=== PATIENT | female | born 1945 | race Caucasian/White ===

== ENCOUNTER 2016-09-20 18:01 | Inpatient (IN) | payer MEDICARE, BC, OTHER ==
[2016-09-20] VITALS (18 sets, daily range): BP systolic 87–157; BP diastolic 29–107; PULSE 59–111; RESP 12–20; Ht 167.6 cm; Wt 100.0 kg
[~2016-09-20] VITALS: Ht 167.6 cm; Wt 100.0 kg
[~2016-09-20 18:01] MED LIST: ATOR10TA23 PO; ATROPINE 1 MG/10 ML SYRINGE ONE; EPINEPHrine 0.1 MG/ML SYG ONE; ETOMIDATE 20 MG INJ ONE; GLIP-95 PO; LISI5TAB PO; MTF1000T PO; NPH,100V10 SC; RALO60TA12 PO; ROCURONIUM 50 MG INJ ONE; SITA100T8 PO
[2016-09-20] MEDS ORDERED: ASPIRIN 300 MG SUPP PR STA (18:07)
[2016-09-20] MEDS ORDERED: CEFEPIME 2GM/50 ML (PMX) 50 ML IVPB STA (18:14)
[2016-09-20 18:16] LABS: ADD SCAN DIFF NO
[2016-09-20 18:19] LABS: ABNORMAL IP MESSAGE 1; HEMATOCRIT 42.8 % (37.0-47.0); HEMOGLOBIN 12.7 g/dl (12.0-16.0); MEAN CORPUSCULAR HEMOGLOBIN 26.8 pg (29.0-33.0); MEAN CORPUSCULAR HGB CONC 29.7 g/dl (32.0-37.0); MEAN CORPUSCULAR VOLUME 90.5 fl (82.0-101.0); MEAN PLATELET VOLUME 9.6 fl (7.4-10.4); PLATELET COUNT 278 10^3/UL (140-415); RED BLOOD COUNT 4.73 10^6/ul (4.20-5.40); WHITE BLOOD COUNT 28.1 10^3/ul (4.8-10.8)
[2016-09-20] MEDS ORDERED: HEPARIN 1000 UNITS/ML 10 ML INJ ONE ×2 (18:21→19:22)
[2016-09-20] MEDS ORDERED: LIDOCAINE 1% (MDV) 20 ML INJ ONE (18:21)
[2016-09-20] MEDS ORDERED: VERAPAMIL 5 MG INJ ONE (18:21)
[2016-09-20] MEDS ORDERED: NITROGLYCERIN (IC) 100 MCG/ML INJ ONE (18:21)
[2016-09-20] MEDS ORDERED: IODIXANOL LOCM 100 ML BTL ONE ×2 (18:21→20:33)
[2016-09-20] MEDS ORDERED: SOD CHLORIDE 0.9% 1,000 ML IV ONE (18:30)
[2016-09-20 18:34] LABS: CREATININE 2.78 mg/dl (0.44-1.00)
[2016-09-20 18:35] LABS: CALCIUM 9.8 mg/dl (8.4-10.2)
[2016-09-20] MEDS ORDERED: CANA300T PO (18:38)
[2016-09-20] MEDS ORDERED: LATA2.5D2 BOTH EYES (18:39)
[2016-09-20] MEDS ORDERED: DORZ10DR6 BOTH EYES (18:39)
[2016-09-20 18:43] LABS: INR 2.05; PARTIAL THROMBOPLASTIN TIME 35.8 Sec (25.0-35.0); PROTIME 23.3 Sec (12.2-14.2); PT RATIO 1.8
--- NOTE | 2016-09-20 18:44 | RADRPT ---
PROCEDURE: XR Chest. CLINICAL INDICATION: Chest pain. Code STEMI. TECHNIQUE: Single frontal view. COMPARISON: None. FINDINGS: The lungs are clear. The heart size is normal. There is no pleural effusion. There is no pneumothorax. IMPRESSION: 1. Normal chest radiograph. RPTAT: QQ .Arnaldo Back MD, MD Date Time Electronically viewed and signed by .Arnaldo Back MD, on 09/20/2016 18:44 .R/
[2016-09-20 18:49] LABS: POTASSIUM 6.6 mmol/L (3.5-5.1)
--- NOTE | 2016-09-20 18:51 | CONS ---
Date/Time of Note Date/Time of Note DATE: 09/20/16 TIME: 18:43 Assessment/Plan Assessment/Plan Chief Complaint/Hosp Course Patient found unresponsive and profoundly bradycardic, ekg suggestive of stemi of inferior wall Problems: Additional Assessment/Plan STEMI anterior wall profound sinus bradycardia diabetes Plan: Cath and possible pci, risks and benefits discussed, consents Possible transvenous pacer placement Further plans to come into place after cath Consultation Date/Type/Reason Admit Date/Time September 20, 2016 Date of Consultation: Sep 20, 2016 Type of Consultation: cardiology Reason for Consultation stemi Referring Provider: SANDY GOLDEN DO Hx of Present Illness History of diabetes, found unresponsive by in bed, who called 911, he started cpr on her, per nursing in er patient never lost pulse, was sinus tosha , received atropine in er and rectal aspirin. 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 She is known to be diabetic, is on medication including invokana, no prior cardiac history. History from . Patient has felt unwell for about two weeks, felt weak. unable, intubated Past Medical History Medical History: diabetes Past Surgical History Past Surgical Hx: noncontributory Family History Significant Family History: no pertinent family hx (no premature cad) Social History Alcohol Use: sober Smoking Status: Never smoker Exam/Review of Systems Vital Signs Vitals Vital Signs Date Time Temp Pulse Resp B/P Pulse Ox O2 Delivery O2 Flow Rate FiO2 09/20/16 18:10 98.4 35 16 82/70 87 09/20/16 18:10 Non Rebreather 15 Exam Constitutional: other (intubated and sedated) Psych: other (unable) Head: atraumatic, normocephalic Eyes: other (closed) ENMT: intubated Neck: No bruits, No jvd Respiratory: clear to auscultation Cardiovascular: nl pulses (normal femoral pulse, diminshed dp pulses bilaterally), regular rate and rhythm, No edema Gastrointestinal: No distended Musculoskeletal: nl extremities to inspection Extremities: normal pulses Neurological: unresponsive Skin: nl turgor Results EKG shows ST elevations in anterior leads with reciprocal changes in v1-v2 Result Diagram: 09/20/16 1810 Results 24 hrs Laboratory Tests Test 09/20/16 18:10 Activated Partial Thromboplast Time Pending Hematocrit 42.8 Hemoglobin 12.7 INR International Normalized Ratio 2.05 Mean Corpuscular Hemoglobin 26.8 L Mean Corpuscular Hemoglobin Concent 29.7 L Mean Corpuscular Volume 90.5 Mean Platelet Volume 9.6 Platelet Count 278 Prothrombin Time 23.3 H Prothrombin Time Ratio 1.8 Red Blood Count 4.73 Red Cell Distribution Width 14.0 White Blood Count 28.1 H Medications Medications Current Medications Sodium Chloride (NS) 1,000 ml @ 1,000 mls/hr Q1H ONCE IV ; Start 09/20/16 at 18 :30; Stop 09/20/16 at 19:29 BENJAMIN OSEGUERA Sep 20, 2016 18:51
[2016-09-20] MEDS ORDERED: CA CHLORIDE 10% 10 ML SYRINGE ONE (18:55)
[2016-09-20] MEDS ORDERED: DOPamine-D5W 1.6 MG/ML 250 ML ONE (18:58)
--- NOTE | 2016-09-20 18:59 | ERA ---
ER Documentation Chief Complaint Date/Time DATE: 09/20/16 TIME: 18:36 Chief Complaint STEMI HPI This 71-year-old female was brought in by paramedics when the called 911 was patient suddenly went unresponsive. Paramedics arrived she was bradycardic with faint pulses but they did not have to initiate CPR. They placed a nasal airway and gave her bag mask ventilations she was breathing with apnea. She had been sick reportedly for approximately 2 weeks with cough and congestion. She had been feeling weak already. Patient is unable to speak secondary to clinical condition. ROS Unobtainable secondary to clinical condition Medications Home Meds Reported Medications Atorvastatin (Lipitor) 10 Mg Tablet, 10 MG PO HS 08/15/11 Lisinopril* (Prinivil*) 5 Mg Tablet, 5 MG PO DAILY 08/15/11 Nph, Human Insulin Isophane* (Novolin N*) 100 U/Ml Vial, 50 UNITS SC BID 08/15/11 Discontinued Reported Medications Raloxifene Hcl* (Evista*) 60 Mg Tablet, 60 MG PO DAILY 08/15/11 Sitagliptin* (Januvia*) 100 Mg Tablet, 100 MG PO BID 08/15/11 Metformin* (Glucophage*) 1,000 Mg Tablet, 1000 MG PO BID 08/15/11 Glipizide* (Glipizide*) 10 Mg Tablet, 10 MG PO BID 08/15/11 Allergies Allergies: Uncoded Allergies: SOY (Allergy, Unknown, 09/20/16) PMhx/Soc Medical and Surgical Hx: pt denies Surgical Hx History of Surgery: No Anesthesia Reaction: No Hx Neurological Disorder: No Hx Respiratory Disorders: No Hx Cardiac Disorders: No Hx Psychiatric Problems: No Hx Miscellaneous Medical Probl: Yes (DM) Hx Alcohol Use: No Hx Substance Use: No Hx Tobacco Use: No Smoking Status: Never smoker Physical Exam Vitals Vital Signs Date Time Temp Pulse Resp B/P Pulse Ox O2 Delivery O2 Flow Rate FiO2 09/20/16 18:10 98.4 35 16 82/70 87 Physical Exam Const: [] Minimally responsive, ill-appearing Head: Atraumatic Eyes: Normal Conjunctiva, EOMI, PERRLA ENT: Normal External Ears, Nose and Mouth. Nasal airway presents in right nare Neck: n supple no apparent JVD Resp: Shallow inspiration, decreased bibasilar breath sounds Cardio: Fluctuating regular bradycardia, no murmurs Abd: Soft, obese, non distended. Normal bowel sounds Skin: Pale, somewhat mottled Back: No deformities Ext: No cyanosis, trace pedal edema, faint femoral and carotid pulses Neur: Minimally responsive, moving head side to side, can open eyes and track , can squeeze my hand on command Result Diagram: 09/20/160 Results 24 hrs Laboratory Tests Test 09/20/16 18:10 Hematocrit 42.8% Hemoglobin 12.7g/dl Mean Corpuscular Hemoglobin 26.8pg Mean Corpuscular Hemoglobin Concent 29.7g/dl Mean Corpuscular Volume 90.5fl Mean Platelet Volume 9.6fl Platelet Count 45921^3/UL Red Blood Count 4.7310^6/ul Red Cell Distribution Width 14.0% White Blood Count 28.110^3/ul Current Medications Medications (Trade) Dose Ordered Sig/Chris Route PRN Reason Start Time Stop Time Status Last Admin Dose Admin Aspirin 300 mg 300 mg ONCE STAT AL 09/20/16 18:07 09/20/16 18:08 DC 09/20/16 18:15 Cefepime HCl 50 ml @ 100 mls/hr ONCE STAT IVPB 09/20/16 18:14 09/20/16 18:43 Sodium Chloride (NS) 1,000 ml @ 1,000 mls/hr Q1H ONCE IV 09/20/16 18:30 09/20/16 19:29 Heparin Sodium (Porcine) (Heparin (1000 Units/ml)) 10,000 unit STK-MED ONCE .ROUTE 09/20/16 18:21 09/20/16 18:22 DC Lidocaine (Xylocaine 1% (Mdv) 20 ml) 20 ml STK-MED ONCE .ROUTE 09/20/16 18:21 09/20/16 18:22 DC Iodixanol 100 ml 100 ml STK-MED ONCE .ROUTE 09/20/16 18:21 09/20/16 18:22 DC Heparin Sodium/ Sodium Chloride (Heparin 1000 Units/NS (A-Line)) 1,500 ml @ ud STK-MED ONCE .ROUTE 09/20/16 18:21 09/20/16 18:22 DC Verapamil HCl (Verapamil) 5 mg STK-MED ONCE .ROUTE 09/20/16 18:21 3/17/17 18:22 DC Nitroglycerin (Nitroglycerin (Intracoronary)) 1,000 mcg STK-MED ONCE .ROUTE 09/20/16 18:21 09/20/16 18:22 DC Procedures/MDM Patient arrived in ER at 1801. Patient still had pulses although is fluctuating with significant bradycardia. Based on batch mixer EKG code STEMI was called. Warnock was called at 1804. sales incentive analyst called back at 1805 and informed her that there was an inferior wall STEMI. Dr Fuller requested that we wait on heparin and she will administering labor economics professor. Patient was given 300 mg as needed aspirin. Patient did begin having apneic respirations and although she maintained pulse that became very faint was difficult to get a blood pressure. Patient also became very bradycardic. She was given atropine 1 mg followed by epinephrine 1 mg. Blood pressure was then able to be obtained. Patient had lost her mental status as well and was no longer following commands were able to track with eyes. She was intubated for airway protection. Following intubation and OG tube was placed a large amount of clear brown fluid was obtained from stomach decompression. Liter of normal saline was also given in the emergency room. Dr. Fuller arrived and the patient taken to labor economics professor for intervention. We will not call the admitting doctor and get the patient admitted to the ICU. Spoke with the family who arrived shortly after the patient and they mention the patient had been sick with upper respiratory infection for 2 weeks. I also ordered septic laboratories including lactic acid and cultures. I also ordered 2 mg of cefepime to be given empirically. Patient's potassium returned at 6.6 after she was already in the Classification Inspector. I called Classification Inspector to inform Dr. Fuller the potassium was elevated at 6.6. EKG interpretation: Sinus bradycardia, rate of 47, first-degree AV block, pronounced ST elevations in the inferior leads as well as anterolateral leads with reciprocal depressions in aVL and V2. Acute STEMI. Normal axis. tower watchman interpretation: Fluctuating sinus bradycardia. Normal sinus rhythm after administration of atropine and epinephrine. No other arrhythmias Chest x-ray interpretation: I see no acute process. I see no widened mediastinum, no pneumothorax, no obvious infiltrate, no fractures ET intubation note: RSI was used with 20 of etomidate and 100 of rocuronium. Size 7.5 ET tube was easily introduced through visualized vocal cords using a size 4 Mac blade. Compliance was good with bag ET tube ventilation. Patient was saturating 100%. There is no change in vital signs. Patient try the procedure well with no complications. Critical care time 36 minutes: This includes management of STEMI with possible sepsis and unstable vital signs, careful fluid administration, chart reviewed, empiric antibiotic administration, discussion with tack picker, Classification Inspector team, family, greater than 20 minutes the patient's bedside not including any billable procedures. Ultrasound-guided IV line placement note: Staff was not able to establish a second large-bore IV. Used ultrasound guidance to easily introduce a 18-gauge extended angiocatheter into the left basilic vein under ultrasound guidance. There was good blood flow. Labs were obtained from the same line. Patient tired the procedure well with no complications. Departure Diagnosis: Primary Impression: ST elevation myocardial infarction (STEMI) Additional Impressions: Symptomatic bradycardia Hyperkalemia Metabolic encephalopathy Condition: Critical SANDY GOLDEN DO Sep 20, 2016 18:52
[2016-09-20] MEDS ORDERED: INSULIN REGULAR, HUMAN 100 UNIT/1 ML 3ML VIAL SC ONE (19:00)
[2016-09-20] MEDS ORDERED: NORepinephrine 8MG/250 ML (PMX 250 ML ONE (19:09)
[2016-09-20] MEDS ORDERED: EPTIFIBATIDE 20 ML ONE (19:23)
[2016-09-20] MEDS ORDERED: EPTIFIBATIDE 100 ML IV ONE (19:23)
[2016-09-20 19:30] LABS: LYMPHOCYTES # 1.7 10^3/ul (0.8-2.9); MONOCYTE # 2.8 10^3/ul (0.3-0.9); NEUTROPHIL # 22.8 10^3/ul (1.6-7.5)
[2016-09-20] MEDS ORDERED: ATORVASTATIN 80 MG TAB PO ONE (20:00)
[2016-09-20] MEDS ORDERED: TICAGRELOR 90 MG TABLET ONE (20:03)
--- NOTE | 2016-09-20 20:23 | EN ---
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 30% mid lesion LCX one large OM branch, no significant disease The right coronary artery is dominant and initially had dano 2 flow, with large thrombus burden, but shortly thereafter was completely occluded. LV gram demonstrates normal LV systolic function, EF 60%, with inferior basal akinesis. Indications: Patient presented unresponsive and bradycardic, and CPR was started. EKG shows ST elevation of the inferior wall leads, first degree av block, sinus tosha Informed consent obtained from . Access obtained in right common femoral artery and vein. Because of profound bradycardia, a pacer wire was advanced to the right ventricle and provided backup pacing at 80 bpm. The patient also received pressors, dopamine and levophed, for hypotension. Initially a JR4 diagnostic catheter was advanced to the aorta and engaged in the RCA, demonstrating large thrombus burden in the proximal RCA. A Mushtaq Right catheter engaged the RCA, heparin administered, and a Luge wire crossed the lesion. A 2.5x12 mm balloon was inflated twice within the lesion, leading to slightly better flow. Then two Pronto catheters, one smaller and one larger , were passed and extracted thrombus. DANO 3 flow was then present, and two Promus stents placed, 3.0x20 and 3.0x 12 mm. Integrilin was also administered due to large thrombus burden. The right coronary was addressed with angioplasty without assessing the left coronary system due to the acute nature of the situation with bradycardia and hypotension. Once addressed, a JL4 diagnostic catheter advanced to the left main, and angiography demonstrated mild disease of the LAD. Next a pigtail catheter advanced to the left ventricle, demonstrated normal systolic function with inferobasal akinesis. At the end of the case, pressure was improved, pressors able to be decreased and temporary pacer wire removed. The venous sheath was sutured in place, and the right laboratory sampler sheath replaced with an angioseal after angiographic assessment. BENJAMIN OSEGUERA Sep 20, 2016 20:22
[2016-09-20 20:30] LABS: AADO2 Arterial 162.1 mmHg (7.0-24.0); Arterial Base Excess -20.8 mmol/L (-3.0-3); Arterial COHb 0.3 % (0.0-3.0); Arterial Fraction of Oxyhgb 98.8 % (93.0-99.0); Arterial HCO3 9.2 mmol/L (22.0-26.0); Arterial MetHb 0.6 % (0.0-1.5); MODE VENT - AC
[2016-09-20] MEDS ORDERED: IOHEXOL 350MG/ML 50 ML BTL ONE (20:33)
[2016-09-20 21:53] LABS: POTASSIUM 5.6 mmol/L (3.5-5.1)
[2016-09-20 21:55] LABS: CREATININE 2.45 mg/dl (0.44-1.00)
[2016-09-20] MEDS ORDERED: GLUCOSE GEL 15 GRAM TUBE PO PRN ×2 (22:00)
[2016-09-20] MEDS ORDERED: GLUCOSE GEL 15 GRAM TUBE BUCCAL PRN (22:00)
[2016-09-20] MEDS ORDERED: GLUCAGON 1 MG INJ IM PRN (22:00)
[2016-09-20] MEDS ORDERED: DEXTROSE 50% 50 ML SYRINGE IV PRN ×2 (22:00)
[2016-09-20 22:22] LABS: AADO2 Arterial 186.7 mmHg (7.0-24.0); Allen Test ACCEPTAB; Arterial Base Excess -18.7 mmol/L (-3.0-3); Arterial COHb 0.3 % (0.0-3.0); Arterial Fraction of Oxyhgb 98.7 % (93.0-99.0); Arterial MetHb 0.5 % (0.0-1.5); Arterial Total Hemglobin 12.7 g/dl (12.0-18.0); Blood Gas Low PEEP Setting 0 cmH2O; MODE AC
[2016-09-20 22:48] LABS: ALBUMIN 2.2 g/dl (3.3-4.9); CHLORIDE 96 mmol/L (97-110); POTASSIUM 5.4 mmol/L (3.5-5.1); SODIUM 130 mmol/L (135-144)
[2016-09-20 22:50] LABS: CREATININE 1.58 mg/dl (0.44-1.00)
[2016-09-20 22:51] LABS: ALBUMIN/GLOBULIN RATIO 0.88; ALKALINE PHOSPHATASE 106 IU/L (42-121); ANION GAP 28 (8-16); BILIRUBIN,INDIRECT 0.5 mg/dl (0-1.1); BILIRUBIN,TOTAL 1.1 mg/dl (0.2-1.3); BLOOD UREA NITROGEN 23 mg/dl (7-20); CARBON DIOXIDE 11 mmol/L (21-31); GLUCOSE 385 mg/dl (70-220); TOTAL PROTEIN 4.7 g/dl (6.1-8.1)
[2016-09-20 22:52] LABS: CALCIUM 8.6 mg/dl (8.4-10.2)
[2016-09-20] MEDS ORDERED: NA BICARBONATE 8.4% 50 ML SYG IV ONE (23:00)
[2016-09-20] MEDS: SOD CHLORIDE 0.9% 1,000 ML IV SCH (23:22)
[2016-09-20] MEDS: PROPOFOL 100 ML IV SCH (23:30)
[2016-09-20] MEDS ORDERED: FENTAnyl (DRIP) 1000 mcg/100mL 100 ML IV SCH (23:30)
[2016-09-20] MEDS ORDERED: MIDAZOLAM (DRIP) 50 mg/50 mL 50 ML IV SCH (23:30)
[2016-09-20 23:45] LABS: ALANINE AMINOTRANSFERASE 3885 IU/L (13-69); ASPARTATE AMINO TRANSFERASE > 7500 IU/L (15-46)
[2016-09-21] VITALS (110 sets, daily range): BP systolic 77–148; BP diastolic 24–93; PULSE 42–107; RESP 16–22
[2016-09-21 00:28] LABS: ADD SCAN DIFF NO
[2016-09-21 00:29] LABS: ABNORMAL IP MESSAGE 1; BASOPHIL # 0.1 10^3/ul (0.0-0.1); BASOPHILS % 0.3 % (0.0-2.0); HEMATOCRIT 38.4 % (37.0-47.0); HEMOGLOBIN 12.1 g/dl (12.0-16.0); LYMPHOCYTES # 1.1 10^3/ul (0.8-2.9); LYMPHOCYTES % 3.7 % (15.0-51.0); MEAN CORPUSCULAR HEMOGLOBIN 27.3 pg (29.0-33.0); MEAN CORPUSCULAR HGB CONC 31.5 g/dl (32.0-37.0); MEAN CORPUSCULAR VOLUME 86.5 fl (82.0-101.0); MONOCYTE # 1.2 10^3/ul (0.3-0.9); MONOCYTES % 4.1 % (0.0-11.0); NEUTROPHILS % 89.5 % (39.0-77.0); PLATELET COUNT 260 10^3/UL (140-415); RED BLOOD COUNT 4.44 10^6/ul (4.20-5.40); RED CELL DISTRIBUTION WIDTH 14.1 % (11.5-14.5); WHITE BLOOD COUNT 30.1 10^3/ul (4.8-10.8)
[2016-09-21] MEDS ORDERED: NORepinephrine 8MG/250 ML (PMX 250 ML IV SCH (00:30)
[2016-09-21 00:44] LABS: POTASSIUM 5.4 mmol/L (3.5-5.1)
[2016-09-21 00:46] LABS: CREATININE 2.17 mg/dl (0.44-1.00); INR 2.42; PARTIAL THROMBOPLASTIN TIME 42.7 Sec (25.0-35.0); PROTIME 26.6 Sec (12.2-14.2); PT RATIO 2.1
[2016-09-21 00:47] LABS: CALCIUM 8.8 mg/dl (8.4-10.2); MAGNESIUM 2.2 mg/dl (1.7-2.5); PHOSPHORUS 7.9 mg/dl (2.5-4.9)
[2016-09-21] MEDS: INSULIN ASPART [NOVOLOG] 3 ML PEN SC SCH ×2 (00:52→04:20)
[2016-09-21] MEDS: EPTIFIBATIDE 100 ML IV SCH ×2 (01:00→02:09)
[2016-09-21] MEDS: DOPamine-D5W 1.6 MG/ML 250 ML IV SCH ×3 (01:03→16:32)
[2016-09-21] MEDS ORDERED: MEPERIDINE 25 MG INJ IV PRN ×2 (02:00→05:00)
[2016-09-21] MEDS: VECURONIUM 100 MG in DEXTROSE 5% 100 ML IV SCH (04:02)
[2016-09-21 04:28] LABS: Allen Test ACCEPTAB; Arterial Base Excess -10.7 mmol/L (-3.0-3); Arterial COHb 0.3 % (0.0-3.0); Arterial Fraction of Oxyhgb 98.3 % (93.0-99.0); Arterial HCO3 14.2 mmol/L (22.0-26.0); Arterial MetHb 0.6 % (0.0-1.5); Arterial Total Hemglobin 13.7 g/dl (12.0-18.0); Blood Gas Low PEEP Setting 0 cmH2O
[2016-09-21] MEDS ORDERED: OCULAR LUBRICANT 3.5 GM OPH OINT BOTH EYES ONE (06:00)
[2016-09-21 06:27] LABS: ADD SCAN DIFF NO
[2016-09-21 06:51] LABS: POTASSIUM 5.5 mmol/L (3.5-5.1)
[2016-09-21 06:53] LABS: ABNORMAL IP MESSAGE 1; BASOPHIL # 0.1 10^3/ul (0.0-0.1); BASOPHILS % 0.2 % (0.0-2.0); CREATININE 2.25 mg/dl (0.44-1.00); HEMATOCRIT 39.7 % (37.0-47.0); HEMOGLOBIN 12.4 g/dl (12.0-16.0); LYMPHOCYTES # 1.5 10^3/ul (0.8-2.9); LYMPHOCYTES % 4.5 % (15.0-51.0); MEAN CORPUSCULAR HEMOGLOBIN 26.8 pg (29.0-33.0); MEAN CORPUSCULAR HGB CONC 31.2 g/dl (32.0-37.0); MEAN CORPUSCULAR VOLUME 85.7 fl (82.0-101.0); MEAN PLATELET VOLUME 10.4 fl (7.4-10.4); MONOCYTE # 1.5 10^3/ul (0.3-0.9); MONOCYTES % 4.5 % (0.0-11.0); NEUTROPHIL # 28.7 10^3/ul (1.6-7.5); NEUTROPHILS % 87.7 % (39.0-77.0); PLATELET COUNT 248 10^3/UL (140-415); RED BLOOD COUNT 4.63 10^6/ul (4.20-5.40); RED CELL DISTRIBUTION WIDTH 14.4 % (11.5-14.5); WHITE BLOOD COUNT 32.7 10^3/ul (4.8-10.8)
[2016-09-21 06:54] LABS: CALCIUM 8.6 mg/dl (8.4-10.2); PHOSPHORUS 7.5 mg/dl (2.5-4.9)
[2016-09-21 06:55] LABS: MAGNESIUM 2.2 mg/dl (1.7-2.5)
[2016-09-21 06:57] LABS: INR 2.26; PROTIME 25.2 Sec (12.2-14.2)
[2016-09-21 07:25] LABS: CK-MB 62.2 ng/ml (0.0-2.4)
--- NOTE | 2016-09-21 07:33 | PN ---
Date/Time of Note Date/Time of Note DATE: 09/21/16 TIME: 07:12 Assessment/Plan VTE Prophylaxis VTE Prophylaxis Intervention: SCD's Lines/Catheters IV Catheter Type (from Nrsg): Central Line Central line still needed: Yes (cooling protocol) Urinary Cath still in place: Yes Reason Cath still needed: other (indicate) (intubated) Assessment/Plan Chief Complaint/Hosp Course Patient found unresponsive and profoundly bradycardic, ekg suggestive of stemi of inferior wall Problems: Assessment/Plan Impression: STEMI inferior wall -- s/p emergent pci and placement of two drug eluting stents to the proximal and mid RCA Shock, more likely septic than cardiogenic as patient has normal systolic function on LV gram Profound bradycardia, resolved, secondary to acute CO Lactic acidosis due to acute illness Possible sepsis with very elevated wbc and hypotension Respiratory failure Renal insufficiency -- unknown if acute or chronic Hyperkalemia Atrial fib/flutter, paroxysmal Nonsustained VT, due to reperfusion and electrolyte abnormalities Recommendations: Wean pressors, preferably dopamine considering that the patient has had significant ectopy Continue integrilin for a total of 18 hours, as patient had a large thrombus burden in her right coronary artery Aspirin and Brilinta to maintain stent patency High dose atorvastatin No beta blockers due to need for pressors Consider antibiotics Course is very much dependent on recovery of neurologic function Subjective 24 Hr Interval Summary Free Text/Dictation Overnight patient respiratory status has improved. She has had short runs of NSVT. She is still requiring pressors. Subjective hx not possible: pt non-verbal, pt critical Exam/Review of Systems Vital Signs Vitals Vital Signs Date Time Temp Pulse Resp B/P Pulse Ox O2 Delivery O2 Flow Rate FiO2 09/21/16 05:45 74 20 106/80 100 Mechanical Ventilator 09/21/16 05:03 60 09/21/16 05:00 91.5 09/20/16 18:19 15.0 Intake and Output 09/20/16 09/20/16 09/21/16 15:00 23:00 07:00 Intake Total 1197.855 ml Output Total 326 ml 251 ml Balance -326 ml 946.855 ml Exam Constitutional: non-verbal, obese (intubated) Head: atraumatic, normocephalic ENMT: intubated Neck: other (neck thick), No bruits Respiratory: crackles/rales Cardiovascular: regular rate and rhythm, No murmurs/extra sounds Gastrointestinal: non-tender, soft Extremities: other (right groin site intact, no hematoma, no bruit, right femoral venous sheath still in place for monitoring) Neurological: unresponsive (on cooling protocol) Skin: other (cool skin) Results Result Diagram: 09/21/16 0600 09/21/16 0600 Results 24 hrs Laboratory Tests Test 09/20/16 18:10 09/20/16 18:30 09/20/16 19:15 09/20/16 19:55 Activated Partial Thromboplast Time 35.8 H Anion Gap 33 H 32 H Band Neutrophils % 3.0 Blood Urea Nitrogen 25 H 25 H Calcium Level 9.8 10.0 Carbon Dioxide Level 15 L 10 L Chloride Level 93 L 96 L Creatinine 2.78 H 2.45 H Glucose Level 238 H 267 H Hematocrit 42.8 Hemoglobin 12.7 INR International Normalized Ratio 2.05 Lymphocytes # 1.7 Lymphocytes % 6.0 L Mean Corpuscular Hemoglobin 26.8 L Mean Corpuscular Hemoglobin Concent 29.7 L Mean Corpuscular Volume 90.5 Mean Platelet Volume 9.6 Monocytes # 2.8 H Monocytes % 10.0 Neutrophils # 22.8 H Neutrophils % 81.0 H Platelet Count 278 Potassium Level 6.6 *H 5.6 H Prothrombin Time 23.3 H Prothrombin Time Ratio 1.8 Red Blood Count 4.73 Red Cell Distribution Width 14.0 Sodium Level 134 L 132 L Troponin I 101.000 *H White Blood Count 28.1 H Lactic Acid Level 16.7 *H 13.8 *H Arterial Blood HCO3 9.2 *L Arterial Blood Base Excess -20.8 L Arterial Blood Oxygen Saturation 99.7 H Raz Test N/A Arterial Blood Gas Puncture Site Femoral Arterial Blood Carboxyhemoglobin 0.3 Arterial Blood Date Drawn 09/20/2016 8:20:03 PM Arterial Blood Methemoglobin 0.6 Arterial Blood pCO2 (Temp correct) 35.1 Arterial Blood pH (Temp corrected) 7.036 *L Arterial Blood pO2 (Temp corrected) 515.8 H Blood Gas A-a O2 Differential 162.1 H Blood Gas Actual Respiration Rate 20 Blood Gas Critical Value Read Back H.OUMAR HAAS Blood Gas Inspiratory Pressure 33.0 Blood Gas Modality VENT - AC Blood Gas Notified Time 09/20/2016 8:30:38 PM Blood Gas Notified Whom TROY Blood Gas Respiration Rate 20.0 Blood Gas Specimen Source Blood arterial Blood Gas Temperature 37.0 Blood Gas Tidal Volume 500.0 FiO2 100.0 Oxyhemoglobin Percent 98.8 Total Hemoglobin 17.0 Test 09/20/16 21:17 09/20/16 21:25 09/20/16 21:45 09/20/16 22:45 Bedside Glucose 236 H Alanine Aminotransferase (ALT/SGPT) 3885 H Albumin 2.2 L Albumin/Globulin Ratio 0.88 Alkaline Phosphatase 106 Anion Gap 28 H Aspartate Amino Transf (AST/SGOT) > 7500 H Blood Urea Nitrogen 23 H Calcium Level 8.6 Carbon Dioxide Level 11 L Chloride Level 96 L Creatinine 1.58 H Direct Bilirubin 0.60 H Globulin 2.50 Glucose Level 385 H Indirect Bilirubin 0.5 Magnesium Level 2.1 Potassium Level 5.4 H Sodium Level 130 L Total Bilirubin 1.1 Total Protein 4.7 L Arterial Blood HCO3 9.0 *L Arterial Blood Base Excess -18.7 L Arterial Blood Oxygen Saturation 99.5 H Raz Test ACCEPTAB Arterial Blood Gas Puncture Site Left Radial Arterial Blood Carboxyhemoglobin 0.3 Arterial Blood Date Drawn 09/20/2016 10:15:17 PM Arterial Blood Methemoglobin 0.5 Arterial Blood pCO2 (Temp correct) 27.6 L Arterial Blood pH (Temp corrected) 7.132 *L Arterial Blood pO2 (Temp corrected) 498.7 H Blood Gas A-a O2 Differential 186.7 H Blood Gas Actual Respiration Rate 20 Blood Gas Critical Value Read Back JOVANNY WORLEY RN Blood Gas Inspiratory Pressure 33.0 Blood Gas Low PEEP Setting 0 Blood Gas Modality AC Blood Gas Notified Time 09/20/2016 10:22:02 PM Blood Gas Notified Whom LEIGHANN PLANNING LEAD Blood Gas Respiration Rate 20.0 Blood Gas Specimen Source Blood arterial Blood Gas Temperature 37.0 Blood Gas Tidal Volume 500.0 FiO2 100.0 Oxyhemoglobin Percent 98.7 Total Hemoglobin 12.7 Lactic Acid Level 10.7 *H Test 09/21/16 00:19 09/21/16 00:34 09/21/16 04:00 09/21/16 04:12 Activated Partial Thromboplast Time 42.7 H Amylase Level 119 Anion Gap 25 H Basophils # 0.1 Basophils % 0.3 Blood Urea Nitrogen 26 H Calcium Level 8.8 Carbon Dioxide Level 16 L Chloride Level 97 Creatine Kinase 1062 H Creatine Kinase Index 5.6 Creatinine 2.17 H Creatinine Kinase MB (Mass) 60.00 H Eosinophils # 0.0 Eosinophils % 0.0 Fibrinogen 533.0 H Glucose Level 282 #H Hematocrit 38.4 Hemoglobin 12.1 INR International Normalized Ratio 2.42 Lipase 92 Lymphocytes # 1.1 Lymphocytes % 3.7 L Magnesium Level 2.2 Mean Corpuscular Hemoglobin 27.3 L Mean Corpuscular Hemoglobin Concent 31.5 L Mean Corpuscular Volume 86.5 Mean Platelet Volume 10.0 Monocytes # 1.2 H Monocytes % 4.1 Neutrophils # 27.0 H Neutrophils % 89.5 H Nucleated Red Blood Cells # 0.0 Nucleated Red Blood Cells % 0.0 Phosphorus Level 7.9 H Platelet Count 260 Potassium Level 5.4 H Prothrombin Time 26.6 H Prothrombin Time Ratio 2.1 Red Blood Count 4.44 Red Cell Distribution Width 14.1 Sodium Level 133 L Troponin I 122.000 *H White Blood Count 30.1 H Bedside Glucose 264 H 294 H Arterial Blood HCO3 14.2 L Arterial Blood Base Excess -10.7 L Arterial Blood Oxygen Saturation 99.2 H Raz Test ACCEPTAB Arterial Blood Gas Puncture Site Right Radial Arterial Blood Carboxyhemoglobin 0.3 Arterial Blood Date Drawn 09/21/2016 4:08:00 AM Arterial Blood Methemoglobin 0.6 Arterial Blood pCO2 (Temp correct) 29.1 L Arterial Blood pH (Temp corrected) 7.305 L Arterial Blood pO2 (Temp corrected) 216.6 H Blood Gas A-a O2 Differential 179.2 H Blood Gas Actual Respiration Rate 20 Blood Gas Inspiratory Pressure 32.0 Blood Gas Low PEEP Setting 0 Blood Gas Modality VENT-AC Blood Gas Notified Time 09/21/2016 4:28:00 AM Blood Gas Notified Whom JMD Blood Gas Respiration Rate 20.0 Blood Gas Specimen Source Blood arterial Blood Gas Temperature 37.0 Blood Gas Tidal Volume 500.0 FiO2 60.0 Oxyhemoglobin Percent 98.3 Total Hemoglobin 13.7 Test 09/21/16 06:00 Activated Partial Thromboplast Time 35.0 Amylase Level 149 H Anion Gap 24 H Basophils # 0.1 Basophils % 0.2 Blood Urea Nitrogen 30 H Calcium Level 8.6 Carbon Dioxide Level 17 L Chloride Level 98 Creatinine 2.25 H Eosinophils # 0.0 Eosinophils % 0.0 Fibrinogen 512.0 #H Glucose Level 347 H Hematocrit 39.7 Hemoglobin 12.4 INR International Normalized Ratio 2.26 Lactic Acid Level 7.2 *H Lymphocytes # 1.5 Lymphocytes % 4.5 L Magnesium Level 2.2 Mean Corpuscular Hemoglobin 26.8 L Mean Corpuscular Hemoglobin Concent 31.2 L Mean Corpuscular Volume 85.7 Mean Platelet Volume 10.4 Monocytes # 1.5 H Monocytes % 4.5 Neutrophils # 28.7 H Neutrophils % 87.7 H Nucleated Red Blood Cells # 0.0 Nucleated Red Blood Cells % 0.0 Phosphorus Level 7.5 H Platelet Count 248 Potassium Level 5.5 H Prothrombin Time 25.2 H Prothrombin Time Ratio 2.0 Red Blood Count 4.63 Red Cell Distribution Width 14.4 Sodium Level 133 L White Blood Count 32.7 H Medications Medications Current Medications Ticagrelor (Brilinta) 90 mg BID PO ; Start 09/21/16 at 09:00 Aspirin (Aspirin) 81 mg ONCE ONCE PO ; Start 09/21/16 at 09:00; Stop 09/21/16 at 09:01 Insulin Aspart (Novolog Insulin Pen) NOVOLOG *MILD* ALGORI... Q6 SC Last administered on 09/21/16 04:20; Admin Dose 4 UNIT; Start 09/21/16 at 00:00 Miscellaneous Information 1 ea NOTE XX ; Start 09/20/16 at 22:00 Glucose (Glutose) 15 gm Q15M PRN PO DECREASED GLUCOSE; Start 09/20/16 at 22:00 Glucose (Glutose) 22.5 gm Q15M PRN PO DECREASED GLUCOSE; Start 09/20/16 at 22: 00 Dextrose (D50w Syringe) 25 ml Q15M PRN IV DECREASED GLUCOSE; Start 09/20/16 at 22:00 Dextrose (D50w Syringe) 50 ml Q15M PRN IV DECREASED GLUCOSE; Start 09/20/16 at 22:00 Glucagon (Glucagen) 1 mg Q15M PRN IM DECREASED GLUCOSE; Start 09/20/16 at 22:00 Glucose 15 gm 15 gm Q15M PRN BUCCAL DECREASED GLUCOSE; Start 09/20/16 at 22:00 Sodium Chloride 1,000 ml @ 100 mls/hr Q10H IV Last administered on 09/20/16 23:22; Admin Dose 100 MLS/HR; Start 09/20/16 at 22:30 Fentanyl 100 ml @ 2.5 mls/hr TITRATE IV ; Start 09/20/16 at 23:30 Propofol 100 ml @ 4.5 mls/hr Q12H IV ; Start 09/20/16 at 23:30 Midazolam HCl 50 ml @ 1 mls/hr TITRATE IV ; Start 09/20/16 at 23:30 Vecuronium [place] 100 mg/ Dextrose 100 ml @ 7.5 mls/hr TITRATE IV Last administered on 09/21/16 04:02; Admin Dose 7.5 MLS/HR; Start 09/20/16 at 23:30 Dopamine HCl/ Dextrose 250 ml @ 11.25 mls/ hr TITRATE IV Last administered on 09/21/16 05:13; Admin Dose 39 MLS/HR; Start 09/21/16 at 00:30 Eptifibatide 100 ml @ 7.5 mls/hr [id number] IV Last administered on 09/21/16 02: 09; Admin Dose 7.5 MLS/HR; Start 09/21/16 at 00:30 Norepinephrine/ Dextrose (Levophed/D5W) 500 ml @ 1.87 mls/hr TITRATE IV ; Start 09/21/16 at 07:00 Acetaminophen (Tylenol Liquid) 650 mg Q4H PRN NGT PAIN AND OR ELEVATED TEMP; Start 09/21/16 at 02:00 Meperidine HCl (Demerol) 12.5 mg Q4H PRN IV PAIN; Start 09/21/16 at 02:00 Eye Lubricant (Artificial Tears Oph) 2 drop QID BOTH EYES ; Start 09/21/16 at 09 :00 Meperidine HCl (Demerol) 25 mg Q4H PRN IV PRN FOR SEVERE SHIVERING; Start 09/21 at 05:00 Procedures Procedures EKG post procedure reviewed, ST elevations persist in inferior leads with reciprocal changes, sinus rhythm with wandering atral pacemaker. Other EKG shows possible atrial fibrillation. Strips from overnight appear to demonstrate nsvt, atrial flutter and fibrillation. BENJAMIN OSEGUERA Sep 21, 2016 07:28
[2016-09-21] MEDS ORDERED: DEXTROSE 50% 50 ML SYRINGE IV PRN ×2 (08:00)
[2016-09-21] MEDS: ACCU-CHEK XX SCH ×16 (08:00→23:35)
[2016-09-21 08:15] LABS: AADO2 Arterial 214.4 mmHg (7.0-24.0); MODE VENT - AC
[2016-09-21] MEDS ORDERED: ASPIRIN 81 MG TAB PO ONE (09:00)
[2016-09-21] MEDS: PROPOFOL 100 ML IV SCH (09:00)
[2016-09-21] MEDS: ARTIFICIAL TEARS 15 ML OPH BOTH EYES SCH ×4 (09:00→21:31)
[2016-09-21] MEDS: INSULIN REGULAR, HUMAN 100 UNIT in SOD CHLORIDE 0.9% 99 ML IV SCH ×8 (09:01→19:13)
[2016-09-21] MEDS: SOD CHLORIDE 0.9% 1,000 ML IV SCH ×4 (09:42→23:39)
[2016-09-21] MEDS: TICAGRELOR 90 MG TABLET PO SCH ×2 (10:30→21:30)
[2016-09-21 10:40] LABS: AADO2 Arterial 181.3 mmHg (7.0-24.0); Allen Test ACCEPTAB; Arterial Base Excess -7.7 mmol/L (-3.0-3); Arterial COHb 0.3 % (0.0-3.0); Arterial Fraction of Oxyhgb 98.4 % (93.0-99.0); Arterial HCO3 15.6 mmol/L (22.0-26.0); Arterial MetHb 0.4 % (0.0-1.5); Arterial Total Hemglobin 13.6 g/dl (12.0-18.0); MODE VENT - AC
--- NOTE | 2016-09-21 11:48 | CONS ---
DATE OF ADMISSION: 09/20/2016 DATE OF CONSULTATION: 09/21/2016 TYPE OF CONSULTATION: Pulmonary. REASON FOR CONSULTATION: Ventilator management. HISTORY OF PRESENT ILLNESS: This is a 71-year-old lady who was found unresponsive by her in bed, apparently still had respiratory effort and pulse, 911 was called. Upon arrival, the patient was noted to be bradycardic. She received CPR, atropine. Upon arrival to the emergency room, kirill stewart was noted to have acute ST elevation [place]. She was taken to the cardiac catheterization lab and fo und to have occlusion of the RCA. Subsequent, 2 drug-eluting stents placed. Post-procedure she was placed on hypothermia protocol, and now continues hypothermia protocol with cooling measures. PAST MEDICAL HISTORY: History of diabetes. SOCIAL HISTORY: She is a nonsmoker, no alcohol, no history of drug use. FAMILY HISTORY: Noncontributory. SYSTEMS REVIEW: A 12-point review of systems unable to be performed. PHYSICAL EXAMINATION: GENERAL: Moderately obese lady, intubated on mechanical ventilation, appears comfortable at rest. VITAL SIGNS: Temperature 91, pulse 66, blood pressure 128/86, O2 saturation 96% on current mechanical pencils assembler al ventilation. HEENT: Dry mucous membranes. Pupils equal and reactive to light. CARDIAC: S1, S2, no added sounds or murmurs. CHEST: Diminished air entry bilaterally. ABDOMEN: Soft, nontender. No guarding or rebound. EXTREMITIES: No cyanosis, clubbing. 1+ edema. NEUROLOGIC: Unable to assess. LABORATORY DATA: White count 32.7, hemoglobin 12.4, platelets of 248. Troponin 124. BUN 30, creat inine 2.25. IMPRESSION: 1. Cardiopulmonary arrest. 2. Acute ST elevation myocardial infarction. 3. Occlusion of right coronary artery, status post stent placemen. 4. Possible aspiration pneumonia. PLAN: 1. Continue mechanical ventilation. 2. Hypothermia protocol. 3. Continue glycemic management. 4. Antibiotics for possible aspiration pneumonia. Dictated By: ZANDRA ASTORGA/EJRROD Conf#: [id number] DID#: [id number]
[2016-09-21 12:08] LABS: ADD SCAN DIFF NO
[2016-09-21 12:14] LABS: ABNORMAL IP MESSAGE 1; BASOPHIL # 0.1 10^3/ul (0.0-0.1); BASOPHILS % 0.2 % (0.0-2.0); HEMATOCRIT 38.1 % (37.0-47.0); HEMOGLOBIN 12.4 g/dl (12.0-16.0); LYMPHOCYTES # 1.6 10^3/ul (0.8-2.9); LYMPHOCYTES % 5.8 % (15.0-51.0); MEAN CORPUSCULAR HEMOGLOBIN 27.1 pg (29.0-33.0); MEAN CORPUSCULAR HGB CONC 32.5 g/dl (32.0-37.0); MEAN CORPUSCULAR VOLUME 83.2 fl (82.0-101.0); MEAN PLATELET VOLUME 10.5 fl (7.4-10.4); MONOCYTE # 0.7 10^3/ul (0.3-0.9); MONOCYTES % 2.6 % (0.0-11.0); NEUTROPHIL # 23.6 10^3/ul (1.6-7.5); NEUTROPHILS % 88.9 % (39.0-77.0); PLATELET COUNT 266 10^3/UL (140-415); RED BLOOD COUNT 4.58 10^6/ul (4.20-5.40); RED CELL DISTRIBUTION WIDTH 13.9 % (11.5-14.5); WHITE BLOOD COUNT 26.5 10^3/ul (4.8-10.8)
[2016-09-21 12:35] LABS: POTASSIUM 4.7 mmol/L (3.5-5.1)
[2016-09-21 12:38] LABS: CALCIUM 8.4 mg/dl (8.4-10.2); CREATININE 2.31 mg/dl (0.44-1.00); PHOSPHORUS 6.5 mg/dl (2.5-4.9)
[2016-09-21 12:39] LABS: MAGNESIUM 2.2 mg/dl (1.7-2.5)
--- NOTE | 2016-09-21 13:14 | RADRPT ---
PROCEDURE: XR Chest. CLINICAL INDICATION: Shortness of breath. TECHNIQUE: Single frontal view. COMPARISON: 09/20/2016. FINDINGS: The endotracheal tube and nasogastric tube have been inserted in satisfactory position. There is mi ld right upper lobe air space disease which may indicate pneumonia. The lungs are otherwise clear. The heart size is normal. There is no pleural effusion. There is no pneumothorax. IMPRESSION: 1. Endotracheal tube and nasogastric tube in satisfactory position. 2. Mild right upper lobe air space disease which may indicate pneumonia. 3. Otherwise normal chest x-ray. RPTAT: QQ .Arnaldo Back MD, Date Time Electronically viewed and signed by .Arnaldo Back MD, on 09/21/2016 13:13 .R/
[2016-09-21 13:36] LABS: INR 2.27; PROTIME 25.3 Sec (12.2-14.2)
[2016-09-21 13:37] LABS: PARTIAL THROMBOPLASTIN TIME 35.1 Sec (25.0-35.0)
[2016-09-21 18:08] LABS: ADD SCAN DIFF NO
[2016-09-21 18:13] LABS: BASOPHILS % 0.1 % (0.0-2.0); HEMATOCRIT 36.8 % (37.0-47.0); HEMOGLOBIN 12.1 g/dl (12.0-16.0); LYMPHOCYTES # 1.4 10^3/ul (0.8-2.9); LYMPHOCYTES % 6.9 % (15.0-51.0); MEAN CORPUSCULAR HEMOGLOBIN 27.3 pg (29.0-33.0); MEAN CORPUSCULAR HGB CONC 32.9 g/dl (32.0-37.0); MEAN CORPUSCULAR VOLUME 82.9 fl (82.0-101.0); MEAN PLATELET VOLUME 10.5 fl (7.4-10.4); MONOCYTE # 0.8 10^3/ul (0.3-0.9); NEUTROPHIL # 18.1 10^3/ul (1.6-7.5); NEUTROPHILS % 87.1 % (39.0-77.0); NUCLEATED RED BLOOD CELLS% 0.1 /100WBC (0.0-0.0); PLATELET COUNT 251 10^3/UL (140-415); RED BLOOD COUNT 4.44 10^6/ul (4.20-5.40); RED CELL DISTRIBUTION WIDTH 13.9 % (11.5-14.5); WHITE BLOOD COUNT 20.7 10^3/ul (4.8-10.8)
[2016-09-21 18:26] LABS: INR 2.3; PROTIME 25.6 Sec (12.2-14.2)
[2016-09-21 18:27] LABS: PARTIAL THROMBOPLASTIN TIME 30.2 Sec (25.0-35.0)
[2016-09-21 18:28] LABS: POTASSIUM 3.6 mmol/L (3.5-5.1)
[2016-09-21 18:31] LABS: CALCIUM 7.9 mg/dl (8.4-10.2); CREATININE 2.39 mg/dl (0.44-1.00); PHOSPHORUS 4.6 mg/dl (2.5-4.9)
[2016-09-21 18:32] LABS: MAGNESIUM 2.2 mg/dl (1.7-2.5)
[2016-09-21 19:08] LABS: TROPONIN-I 91.1 ng/ml (0.00-0.12)
[2016-09-21 23:46] LABS: AADO2 Arterial 109.5 mmHg (7.0-24.0); Arterial Base Excess -7.3 mmol/L (-3.0-3); Arterial COHb 0.2 % (0.0-3.0); Arterial Fraction of Oxyhgb 98.1 % (93.0-99.0); Arterial HCO3 14.9 mmol/L (22.0-26.0); Arterial MetHb 0.2 % (0.0-1.5); Arterial Total Hemglobin 12.9 g/dl (12.0-18.0); Blood Gas High PEEP Setting 0 cmH2O; Blood Gas Low PEEP Setting 0 cmH2O; MODE VENT - AC
[2016-09-21 23:56] LABS: ALBUMIN 2.4 g/dl (3.3-4.9); CHLORIDE 102 mmol/L (97-110)
[2016-09-21 23:57] LABS: POTASSIUM 3.5 mmol/L (3.5-5.1); SODIUM 137 mmol/L (135-144)
[2016-09-21 23:59] LABS: ALKALINE PHOSPHATASE 143 IU/L (42-121); ANION GAP 18 (8-16); BILIRUBIN,INDIRECT 0.9 mg/dl (0-1.1); BILIRUBIN,TOTAL 0.9 mg/dl (0.2-1.3); CARBON DIOXIDE 21 mmol/L (21-31); TOTAL PROTEIN 5.4 g/dl (6.1-8.1)
[2016-09-22] VITALS (106 sets, daily range): BP systolic 60–146; BP diastolic 28–84; PULSE 49–117; RESP 13–27
[2016-09-22] LABS: BLOOD UREA NITROGEN 38 mg/dl (7-20); CALCIUM 7.5 mg/dl (8.4-10.2); GLUCOSE 138 mg/dl (70-220)
[2016-09-22 00:10] LABS: ADD SCAN DIFF NO
[2016-09-22 00:13] LABS: BASOPHILS % 0.2 % (0.0-2.0); EOSINOPHILS % 0.1 % (0.0-7.0); HEMATOCRIT 35.8 % (37.0-47.0); HEMOGLOBIN 11.9 g/dl (12.0-16.0); LYMPHOCYTES # 1.2 10^3/ul (0.8-2.9); LYMPHOCYTES % 6.8 % (15.0-51.0); MEAN CORPUSCULAR HEMOGLOBIN 27.2 pg (29.0-33.0); MEAN CORPUSCULAR HGB CONC 33.2 g/dl (32.0-37.0); MEAN CORPUSCULAR VOLUME 81.9 fl (82.0-101.0); MEAN PLATELET VOLUME 10.6 fl (7.4-10.4); MONOCYTE # 1.1 10^3/ul (0.3-0.9); MONOCYTES % 6.4 % (0.0-11.0); NEUTROPHILS % 85.1 % (39.0-77.0); PLATELET COUNT 270 10^3/UL (140-415); RED BLOOD COUNT 4.37 10^6/ul (4.20-5.40); WHITE BLOOD COUNT 17.6 10^3/ul (4.8-10.8)
[2016-09-22 00:15] LABS: POTASSIUM 3.4 mmol/L (3.5-5.1)
[2016-09-22 00:18] LABS: CREATININE 2.33 mg/dl (0.44-1.00); INR 2.28; PARTIAL THROMBOPLASTIN TIME 30.7 Sec (25.0-35.0); PROTIME 25.4 Sec (12.2-14.2)
[2016-09-22 00:19] LABS: CALCIUM 7.5 mg/dl (8.4-10.2); MAGNESIUM 2.1 mg/dl (1.7-2.5); PHOSPHORUS 4.5 mg/dl (2.5-4.9)
[2016-09-22 00:32] LABS: TROPONIN-I 67.1 ng/ml (0.00-0.12)
[2016-09-22] MEDS: PIPER-TAZO 3.375 GM IV (PMX) 100 ML IVPB SCH ×3 (01:20→18:07)
[2016-09-22] MEDS: VECURONIUM 100 MG in DEXTROSE 5% 100 ML IV SCH (01:21)
[2016-09-22] MEDS: ACCU-CHEK XX SCH ×24 (01:34→23:08)
[2016-09-22 02:27] LABS: ALANINE AMINOTRANSFERASE 8132 IU/L (13-69)
[2016-09-22 02:28] LABS: ASPARTATE AMINO TRANSFERASE > 7500 IU/L (15-46)
[2016-09-22] MEDS: PROPOFOL 100 ML IV SCH ×3 (03:41→23:30)
[2016-09-22 05:27] LABS: ADD SCAN DIFF NO
--- NOTE | 2016-09-22 05:28 | HP ---
DATE OF ADMISSION: 09/20/2016 ADMITTING DIAGNOSIS: ST elevation myocardial infarction, profound bradycardia. HISTORY OF PRESENT ILLNESS: The patient is a 71-year-old female with diabetes who was fou nd unresponsive by her . The patient was found in bed by the who called 911, initiat ed CPR, and the patient was brought in by ambulance as a code STEMI. In the emergency room, the pat ient received atropine as well as aspirin. The patient underwent catheterization and stenting of th e RCA by Dr. Fuller as well as temporary pacer wires placed. The patient was started on hypotherm ia protocol in the ICU and monitored and has remained stable on pressure support and ongoing hypothe rmic protocol. The patient has no prior cardiac history and is unable to provide any history at this time. History is based on charts. The patient thus far since she has been admitted has been on paralytics as well as propofol and the hypothermic protocol. REVIEW OF SYSTEMS: The patient has had no new issues at this time. PAST MEDICAL HISTORY: Type 2 diabetes, glaucoma. PAST SURGICAL HISTORY: Unknown. FAMILY HISTORY: Noncontributory. ALLERGIES: NONE. 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 No alcohol use. Never smoked, lives with her . She is retired. MEDICATIONS: 1. Lisinopril 5 mg daily. 2. Atorvastatin 10 mg daily. 3. Dorzolamide/timolol and latanoprost daily. 4. Invokana 300 mg daily. 5. NPH human insulin isophane 50 units b.i.d. PHYSICAL EXAMINATION: VITAL SIGNS: Temperature initially in the emergency room 98.4, pulse 35, respirations 16, blood pre ssure 82/70, pulse oximetry 87 on nonrebreather mask at 15 liters. Currently, the patient has a cor e temperature of 91.2, pulse of 46, respirations 20, blood pressure 94/50, oxygen saturation 100% on mechanical ventilation, FIO2 of 40%. GENERAL: Well-developed, well-nourished female lying in bed, obtunded. SKIN: Cool extremities with mild mottling. HEENT: Unable to be examined fully due to paralytics. NECK: No jugular venous distention, 2+ carotid upstroke, no bruits. CHEST: Scant end expiratory wheeze, otherwise clear. HEART: Bradycardic. No murmurs, gallops, or rubs noted. ABDOMEN: Decreased bowel sounds, nontender, nondistended. No obvious masses. EXTREMITIES: No cyanosis, clubbing, or edema, 2+ distal pulses, bilateral lower extremities. NEUROLOGIC: The patient is obtunded, paralyzed with vecuronium. IMAGING: Initially x-ray was normal. X-ray done on 09/21/2016 shows endotracheal tube and nasogast sunitha tube in place, mild right upper lobe airspace disease which may indicate pneumonia. LABORATORY EXAMINATION: Initially, white blood cell count 28.1 with a hemoglobin of 12.7, hematocri t of 42.8, platelets 278. Currently, white blood cell count 20.7, hemoglobin 12.1, hematocrit 36.8, platelets 251. Initial arterial blood gas showed a pH of 7.036, pCO2 of 35, pO2 of 515, oxygen sat uration 99.7%. Most recent arterial blood gas done this morning at 10:20 a.m. 7.45 pH, pCO2 of 22, pO2 of 228, oxygen saturation 99.1% on FIO2 of 60% on the ventilator. Initial chemistry showed pota ssium of 6.6. Sodium 134, chloride 93, bicarbonate 15, BUN 25, creatinine 2.78, lactic acid of 16.7 . Troponin initially was 101. This decreased to potassium of 5.6, sodium 132, creatinine 2.45 yest erday. The most recent potassium at 6:00 this morning is 5.5, sodium 133, chloride 98, bicarbonate 17, creatinine 2.25, BUN of 30, blood sugar of 347. Amylase 149, magnesium 2.2, AST of greater than 7500, ALT of 3885, alkaline phosphatase 106, albumin 2.2. Blood culture is negative to date. ASSESSMENT AND PLAN: 1. Cardiac: The patient is status post acute ST elevation myocardial infarction, inferior wall sta tus post code STEMI with stent placement as well as temporary pacer wire. The patient remains in cr itical condition under hypothermia protocol as well as pressure support. The patient is on a ventil ator and on both propofol and vecuronium at this time which will be eventually weaned. The patient will remain in ICU for further post-AZ care. 2. Diabetes. The patient is n.p.o. at this point and is on sliding scale insulin, but we may have to give routine daily dosing of insulin depending on how blood sugars behave. We will continue to m onitor with routine Accu-Cheks. 3. Acute renal failure. This is likely a combination of her hypotension with some ATN as well as t he patient was on lisinopril and Invokana both which can complicated renal failure in the setting of hypotension. The patient also with hyperkalemia which is a result of the patient's cardiac arrest as well as hypotension and related to both lisinopril and Invokana. We will continue to monitor for her renal recovery. 4. Hyperlipidemia. The patient will receive Atorvastatin. 5. Possible aspiration pneumonia. The patient will be on IV antibiotics and continue vent care and pulmonary toilet. Dictated By: TOVA WRIGHT MD SR/NTS Conf#: [id number] DID#: [id number]
[2016-09-22] MEDS: ACETAMINOPHEN 650MG/20.3ML CUP NGT PRN (05:41)
[2016-09-22 05:43] LABS: INR 2.57; PROTIME 27.9 Sec (12.2-14.2); PT RATIO 2.2
[2016-09-22 05:44] LABS: POTASSIUM 4.1 mmol/L (3.5-5.1)
[2016-09-22 05:47] LABS: CALCIUM 7.3 mg/dl (8.4-10.2); CREATININE 2.45 mg/dl (0.44-1.00); MAGNESIUM 2.1 mg/dl (1.7-2.5); PHOSPHORUS 5.3 mg/dl (2.5-4.9)
[2016-09-22 05:52] LABS: BASOPHILS % 0.2 % (0.0-2.0); EOSINOPHILS % 0.1 % (0.0-7.0); HEMATOCRIT 37.9 % (37.0-47.0); HEMOGLOBIN 12.5 g/dl (12.0-16.0); LYMPHOCYTES % 5.3 % (15.0-51.0); MEAN CORPUSCULAR HEMOGLOBIN 27.2 pg (29.0-33.0); MEAN CORPUSCULAR VOLUME 82.4 fl (82.0-101.0); MEAN PLATELET VOLUME 10.4 fl (7.4-10.4); MONOCYTE # 1.2 10^3/ul (0.3-0.9); MONOCYTES % 6.6 % (0.0-11.0); NEUTROPHIL # 16.1 10^3/ul (1.6-7.5); NEUTROPHILS % 86.4 % (39.0-77.0); NUCLEATED RED BLOOD CELLS% 0.1 /100WBC (0.0-0.0); PLATELET COUNT 312 10^3/UL (140-415); RED CELL DISTRIBUTION WIDTH 14.2 % (11.5-14.5); WHITE BLOOD COUNT 18.7 10^3/ul (4.8-10.8)
[2016-09-22] MEDS: SOD CHLORIDE 0.9% 1,000 ML IV SCH ×2 (06:15→18:07)
[2016-09-22 06:28] LABS: TROPONIN-I 55.4 ng/ml (0.00-0.12)
[2016-09-22 08:10] LABS: AADO2 Arterial 103.7 mmHg (7.0-24.0); Allen Test ACCEPTAB; Arterial Base Excess -6.4 mmol/L (-3.0-3); Arterial COHb 0.3 % (0.0-3.0); Arterial HCO3 16.5 mmol/L (22.0-26.0); Arterial MetHb 0.2 % (0.0-1.5); MODE VENT - AC
--- NOTE | 2016-09-22 08:53 | RADRPT ---
Echocardiogram Report Patient Name: JANIA TRUONG Gender: Female Date: 1945 Study Date: 21-Sep-2016 Auto Winder: LOLIS Location: I Height(Cm): 173 Weight(Kg): 150 BSA: 2.68 Ref. Physician: MARLENE FULLER Quality: Technically Difficult Study Procedures: Transthoracic echocardiogram with 2D, M-Mode, and Doppler examination. Indications: STEMI. 2D/M Mode Doppler Measurement Value Normal Ranges Measurement Value Normal Ranges AoR Diam MM 2.9 cm AV Peak Jose M 0.8 m/sec ACS MM 1.6 cm AV Peak PG 2.8 mmHg LVIDd 2D 3.3 3.5 - 5.6 cm LVOT Peak Jose M 0.7 m/sec LVIDs 2D 2.7 2.1 - 4.1 cm LVOT Peak PG 1.8 mmHg LVPWd 2D 1.3 0.6 - 1.1 cm MV E Peak Jose M 0.7 m/sec IVSd 2D 1.4 0.6 - 1.1 cm MV A Peak Jose M 0.9 m/sec EDV 2D 45.2 cm3 MV E/A 0.7 ESV 2D 19.2 cm3 MV Decel Time 170 msec LA Dimen 2D 2.3 2.3 - 4.0 cm MV Decel Norton 4 MV E/A 0.7 PV Mean Jose M 0.8 m/sec PV Mean PG 3.0 mmHg Findings Left Ventricle: Normal left ventricular cavity size. Mild concentric left ventricular hypertrophy. Ejection fraction is visually estimated at 50 %. Tissue Doppler/Mitral Doppler indices are consistent with impaired relaxation (Stage I diastolic dysfunction). These segments of the LV are dyskinetic septum base segment and inferior base segment. Right Ventricle: Normal right ventricular size. Normal right ventricular systolic function. Left Atrium: The left atrium is normal in size. Right Atrium: The right atrium is normal in size. Atrial Septum: Normal atrial septum. Mitral Valve: Mild mitral annular calcification. Mild mitral valve regurgitation. Aortic Valve: Normal appearance of the aortic valve. No significant aortic stenosis or insufficiency. Tricuspid Valve: Normal appearance of the tricuspid valve. No evidence of tricuspid regurgitation. Pulmonic Valve: Pulmonic valve not well visualized. There is trace pulmonic regurgitation. Pericardium: Normal pericardium with no significant pericardial effusion. Aorta: Normal aortic root with decreased excursion. IVC: Inferior vena cava without respiratory collapse, however, patient on ventilator. Pulmonary Artery: Normal pulmonary artery size. Conclusions Technically difficult study due to ventilator and morbid obesity. Mild concentric left ventricular hypertrophy with low normal systolic function and basal septum and inferior akinesis. Mild mitral regurgitation. Trace pulmonic regurgitation. Impaired diastolic function. Electronically Signed By: Marlene Fuller 22-Sep-2016 08:52:03 -0700 Patient Name: JANIA TRUONG Study Date: 21-Sep-2016 [id number]
[2016-09-22] MEDS: ARTIFICIAL TEARS 15 ML OPH BOTH EYES SCH ×4 (09:13→20:09)
[2016-09-22] MEDS: TICAGRELOR 90 MG TABLET PO SCH ×2 (09:14→20:11)
[2016-09-22] MEDS: ASPIRIN 81 MG TAB NGT SCH (09:18)
--- NOTE | 2016-09-22 10:39 | RADRPT ---
PROCEDURE: XR Chest. CLINICAL INDICATION: Pneumonia follow up TECHNIQUE: Anterior chest x-ray. COMPARISON: None. FINDINGS: There is stable and satisfactory position of endotracheal tube and nasogastric tube. There is mild right upper lobe air space disease which may indicate pneumonia, unchanged. Linear opacities in the left lung base suggest subsegmental atelectasis. The heart size is normal. There is no pleural effusion. There is no pneumothorax. IMPRESSION: 1. Endotracheal tube and nasogastric tube in satisfactory position. 2. Mild right upper lobe air space disease, unchanged. RPTAT: QQ .Freeman Rider MD, Date Time Electronically viewed and signed by .Freeman Rider MD, on 09/22/2016 10:38 .M/
[2016-09-22 11:45] LABS: ADD SCAN DIFF NO
[2016-09-22 11:47] LABS: ABNORMAL IP MESSAGE 1; HEMATOCRIT 38.5 % (37.0-47.0); HEMOGLOBIN 12.4 g/dl (12.0-16.0); MEAN CORPUSCULAR HEMOGLOBIN 26.7 pg (29.0-33.0); MEAN CORPUSCULAR HGB CONC 32.2 g/dl (32.0-37.0); MEAN CORPUSCULAR VOLUME 82.8 fl (82.0-101.0); MEAN PLATELET VOLUME 10.9 fl (7.4-10.4); PLATELET COUNT 295 10^3/UL (140-415); RED BLOOD COUNT 4.65 10^6/ul (4.20-5.40); RED CELL DISTRIBUTION WIDTH 14.4 % (11.5-14.5); WHITE BLOOD COUNT 23.7 10^3/ul (4.8-10.8)
[2016-09-22 12:03] LABS: INR 2.15; PROTIME 24.2 Sec (12.2-14.2); PT RATIO 1.9
--- NOTE | 2016-09-22 12:30 | PN ---
DATE: 09/22/2016 PULMONARY FOLLOWUP SUBJECTIVE: The patient continues hypothermia protocol, currently in the rewarming phase. Remains intubated and sedated, intermittent paralysis. OBJECTIVE: VITAL SIGNS: Temperature 98.5, pulse is 91, blood pressure 95/53, O2 saturation 96%, FIO2 of 30%, o rally intubated. HEENT: Dry mucous membranes. Pupils equal and reactive to light. CARDIAC: S1, S2, no added sounds or murmurs. CHEST: Diminished air entry bilaterally. ABDOMEN: Soft, nontender. No guarding or rebound. EXTREMITIES: No cyanosis, clubbing, edema. NEUROLOGIC: Unable to assess. LABORATORY DATA: White count 18.7, hemoglobin 12.5, platelets of 312. Chemistry: BUN 41, creatini ne 2.45. ABG: PaO2 was 82, bicarbonate was 16.5, pH 7.43. INR 2.57. IMAGING: Chest x-ray was reviewed and shows possible early interstitial edema. IMPRESSION: 1. Bradycardia. 2. ST elevation myocardial infarction. 3. 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 4. Possible encephalopathy, anoxic. PLAN: 1. Continue hypothermia protocol. 2. Antibiotics for possible aspiration pneumonia. 3. Insulin drip per hypothermia protocol. 4. DVT and GI prophylaxis. Dictated By: ZANDRA ASTORGA/JERROD Conf#: [id number] DID#: [id number]
[2016-09-22 13:04] LABS: LYMPHOCYTES # 1.2 10^3/ul (0.8-2.9); MONOCYTE # 0.9 10^3/ul (0.3-0.9); NEUTROPHIL # 20.9 10^3/ul (1.6-7.5)
[2016-09-22 13:38] LABS: POTASSIUM 4.8 mmol/L (3.5-5.1)
[2016-09-22 13:41] LABS: CREATININE 2.59 mg/dl (0.44-1.00); PHOSPHORUS 6.2 mg/dl (2.5-4.9)
[2016-09-22 13:42] LABS: CALCIUM 7.2 mg/dl (8.4-10.2)
[2016-09-22 13:55] LABS: TROPONIN-I 45.7 ng/ml (0.00-0.12)
[2016-09-22] MEDS ORDERED: PHENYLephrine 20MG IN 250 ML 250 ML ONE (15:42)
--- NOTE | 2016-09-22 15:45 | PN ---
Date/Time of Note Date/Time of Note DATE: 09/22/16 TIME: 15:38 Assessment/Plan VTE Prophylaxis VTE Prophylaxis Intervention: SCD's Lines/Catheters IV Catheter Type (from Nrs): Central Line Central line still needed: Yes Urinary Cath still in place: Yes Reason Cath still needed: other (indicate) (intubated) Assessment/Plan Chief Complaint/Hosp Course Patient found unresponsive and profoundly bradycardic, ekg suggestive of stemi of inferior wall Problems: Assessment/Plan STEMI inferior wall -- s/p emergent pci and placement of two drug eluting stents to the proximal and mid RCA Septic shock possibly with component of hypovolemic shock Profound bradycardia, resolved, secondary to acute GA Possible aspiration pneumonia Respiratory failure Renal insufficiency -- unknown if acute or chronic Nonsustained VT, due to reperfusion and electrolyte abnormalities Recommendations: Will give a one liter ns bolus, continue ns at 100 cc/hr Can add neosynephrine to levophed Aspirin and Brilinta to maintain stent patency High dose atorvastatin No beta blockers due to need for pressors Course is very much dependent on recovery of neurologic function Will place arterial line to better monitor blood pressure while requiring pressors Subjective 24 Hr Interval Summary Free Text/Dictation Remains intubated, blood pressure has dropped, is on a maximal dose of Levophed. Subjective hx not possible: pt non-verbal, pt critical status Exam/Review of Systems Vital Signs Vitals Vital Signs Date Time Temp Pulse Resp B/P Pulse Ox O2 Delivery O2 Flow Rate FiO2 09/22/16 15:05 70 20 96 30 09/22/16 13:00 98.5 87/32 Mechanical Ventilator 09/20/16 18:19 15.0 Intake and Output 09/21/16 09/21/16 09/22/16 15:00 23:00 07:00 Intake Total 1276.58 ml 1070.02 ml 2171.3 ml Output Total 347 ml 247 ml 1120 ml Balance 929.58 ml 823.02 ml 1051.3 ml Exam Constitutional: non-verbal, obese Head: atraumatic, normocephalic ENMT: intubated Neck: No bruits Respiratory: crackles/rales (mild, diffuse) Cardiovascular: regular rate and rhythm, No murmurs/extra sounds Gastrointestinal: soft Musculoskeletal: nl extremities to inspection Extremities: No edema Skin: other (cold) Results Result Diagram: 09/22/16 1120 09/22/16 1120 Results 24 hrs Laboratory Tests Test 09/21/16 16:18 09/21/16 16:57 09/21/16 17:50 09/21/16 17:57 Bedside Glucose 278 H 266 H 291 H Activated Partial Thromboplast Time 30.2 Amylase Level 170 H Anion Gap 20 H Basophils # 0.0 Basophils % 0.1 Blood Urea Nitrogen 37 H Calcium Level 7.9 L Carbon Dioxide Level 20 L Chloride Level 99 Creatinine 2.39 H Eosinophils # 0.0 Eosinophils % 0.0 Fibrinogen 466.0 H Glucose Level 227 #H Hematocrit 36.8 L Hemoglobin 12.1 INR International Normalized Ratio 2.30 Lipase 308 H Lymphocytes # 1.4 Lymphocytes % 6.9 L Magnesium Level 2.2 Mean Corpuscular Hemoglobin 27.3 L Mean Corpuscular Hemoglobin Concent 32.9 Mean Corpuscular Volume 82.9 Mean Platelet Volume 10.5 H Monocytes # 0.8 Monocytes % 4.0 Neutrophils # 18.1 H Neutrophils % 87.1 H Nucleated Red Blood Cells # 0.0 Nucleated Red Blood Cells % 0.1 H Phosphorus Level 4.6 Platelet Count 251 Potassium Level 3.6 Prothrombin Time 25.6 H Prothrombin Time Ratio 2.0 Red Blood Count 4.44 Red Cell Distribution Width 13.9 Sodium Level 135 Troponin I 91.100 *H White Blood Count 20.7 #H Test 09/21/16 19:12 09/21/16 20:06 09/21/16 21:23 09/21/16 22:21 Bedside Glucose 227 H 194 234 H 126 Test 09/21/16 23:22 09/21/16 23:23 09/21/16 23:32 09/22/16 00:00 Bedside Glucose 140 Lipase 143 Activated Partial Thromboplast Time 30.7 Alanine Aminotransferase (ALT/SGPT) 8132 H Albumin 2.4 L Albumin/Globulin Ratio 0.80 Alkaline Phosphatase 143 H Amylase Level 200 H Anion Gap 16 Aspartate Amino Transf (AST/SGOT) > 7500 H Basophils # 0.0 Basophils % 0.2 Blood Urea Nitrogen 39 H Calcium Level 7.5 L Carbon Dioxide Level 21 Chloride Level 102 Creatinine 2.33 H Direct Bilirubin 0.00 # Eosinophils # 0.0 Eosinophils % 0.1 Fibrinogen 410.0 # Globulin 3.00 Glucose Level 138 Hematocrit 35.8 L Hemoglobin 11.9 L INR International Normalized Ratio 2.28 Indirect Bilirubin 0.9 Lymphocytes # 1.2 Lymphocytes % 6.8 L Magnesium Level 2.1 Mean Corpuscular Hemoglobin 27.2 L Mean Corpuscular Hemoglobin Concent 33.2 Mean Corpuscular Volume 81.9 L Mean Platelet Volume 10.6 H Monocytes # 1.1 H Monocytes % 6.4 Neutrophils # 15.0 H Neutrophils % 85.1 H Nucleated Red Blood Cells # 0.0 Nucleated Red Blood Cells % 0.0 Phosphorus Level 4.5 Platelet Count 270 Potassium Level 3.4 L Prothrombin Time 25.4 H Prothrombin Time Ratio 2.0 Red Blood Count 4.37 Red Cell Distribution Width 14.0 Sodium Level 136 Total Bilirubin 0.9 Total Protein 5.4 L Troponin I 67.100 *H White Blood Count 17.6 H Arterial Blood HCO3 14.9 L Arterial Blood Base Excess -7.3 L Arterial Blood Oxygen Saturation 98.5 H Raz Test N/A Arterial Blood Gas Puncture Site LB Arterial Blood Carboxyhemoglobin 0.2 Arterial Blood Date Drawn 09/21/2016 11:35:46 PM Arterial Blood Methemoglobin 0.2 Arterial Blood pCO2 (Temp correct) 22.5 L Arterial Blood pH (Temp corrected) 7.439 Arterial Blood pO2 (Temp corrected) 149.8 H Blood Gas A-a O2 Differential 109.5 H Blood Gas Actual Respiration Rate 20 Blood Gas High PEEP Setting 0 Blood Gas Inspiratory Pressure 31.0 Blood Gas Low PEEP Setting 0 Blood Gas Modality VENT - AC Blood Gas Notified Time 09/21/2016 11:46:23 PM Blood Gas Notified Whom RTR Blood Gas Respiration Rate 20.0 Blood Gas Specimen Source Blood arterial Blood Gas Temperature 37.0 Blood Gas Tidal Volume 500.0 FiO2 40.0 Oxyhemoglobin Percent 98.1 Total Hemoglobin 12.9 Test 09/22/16 00:35 09/22/16 01:26 09/22/16 03:02 09/22/16 04:02 Bedside Glucose 143 129 128 102 Test 09/22/16 05:06 09/22/16 05:20 09/22/16 06:13 09/22/16 06:50 Bedside Glucose 131 132 133 Activated Partial Thromboplast Time 32.0 Amylase Level 220 H Anion Gap 19 H B-Type Natriuretic Peptide 8310 H Basophils # 0.0 Basophils % 0.2 Blood Urea Nitrogen 41 H Calcium Level 7.3 L Carbon Dioxide Level 21 Chloride Level 103 Creatinine 2.45 H Eosinophils # 0.0 Eosinophils % 0.1 Fibrinogen 420.0 Glucose Level 126 Hematocrit 37.9 Hemoglobin 12.5 INR International Normalized Ratio 2.57 Lipase 621 H Lymphocytes # 1.0 Lymphocytes % 5.3 L Magnesium Level 2.1 Mean Corpuscular Hemoglobin 27.2 L Mean Corpuscular Hemoglobin Concent 33.0 Mean Corpuscular Volume 82.4 Mean Platelet Volume 10.4 Monocytes # 1.2 H Monocytes % 6.6 Neutrophils # 16.1 H Neutrophils % 86.4 H Nucleated Red Blood Cells # 0.0 Nucleated Red Blood Cells % 0.1 H Phosphorus Level 5.3 H Platelet Count 312 Potassium Level 4.1 Prothrombin Time 27.9 H Prothrombin Time Ratio 2.2 Red Blood Count 4.60 Red Cell Distribution Width 14.2 Sodium Level 139 Troponin I 55.400 *H White Blood Count 18.7 H Test 09/22/16 07:00 09/22/16 07:43 09/22/16 09:47 09/22/16 11:05 Arterial Blood HCO3 16.5 L Arterial Blood Base Excess -6.4 L Arterial Blood Oxygen Saturation 96.5 Raz Test ACCEPTAB Arterial Blood Gas Puncture Site Left Radial Arterial Blood Carboxyhemoglobin 0.3 Arterial Blood Date Drawn 09/22/2016 8:00:06 AM Arterial Blood Methemoglobin 0.2 Arterial Blood pCO2 (Temp correct) 24.5 L Arterial Blood pH (Temp corrected) 7.439 Arterial Blood pO2 (Temp corrected) 82.8 Blood Gas A-a O2 Differential 103.7 H Blood Gas Actual Respiration Rate 20 Blood Gas Modality VENT - AC Blood Gas Notified Time 09/22/2016 8:08:35 AM Blood Gas Notified Whom WS Blood Gas Respiration Rate 20.0 Blood Gas Specimen Source Blood arterial Blood Gas Temperature 35.2 Blood Gas Tidal Volume 500.0 FiO2 30.0 Oxyhemoglobin Percent 96.0 Total Hemoglobin 14.0 Bedside Glucose 160 203 137 Test 09/22/16 11:20 09/22/16 12:25 09/22/16 13:02 09/22/16 14:31 Activated Partial Thromboplast Time Pending Amylase Level 216 H Anion Gap 20 H Band Neutrophils % 3.0 Blood Urea Nitrogen 46 H Calcium Level 7.2 L Carbon Dioxide Level 18 L Chloride Level 102 Creatinine 2.59 H Fibrinogen Pending Glucose Level 160 Hematocrit 38.5 Hemoglobin 12.4 INR International Normalized Ratio 2.15 Lipase 1023 H Lymphocytes # 1.2 Lymphocytes % 5.0 L Magnesium Level 2.0 Mean Corpuscular Hemoglobin 26.7 L Mean Corpuscular Hemoglobin Concent 32.2 Mean Corpuscular Volume 82.8 Mean Platelet Volume 10.9 H Monocytes # 0.9 Monocytes % 4.0 Neutrophils # 20.9 H Neutrophils % 88.0 H Phosphorus Level 6.2 H Platelet Count 295 Potassium Level 4.8 Prothrombin Time 24.2 H Prothrombin Time Ratio 1.9 Red Blood Count 4.65 Red Cell Distribution Width 14.4 Sodium Level 135 Troponin I 45.700 *H White Blood Count 23.7 #H Bedside Glucose 140 195 186 Test 09/22/16 15:26 Bedside Glucose 183 Medications Medications Current Medications Ticagrelor (Brilinta) 90 mg BID PO Last administered on 09/22/16 09:14; Admin Dose 90 MG; Start 09/21/16 at 09:00 Insulin Aspart (Novolog Insulin Pen) NOVOLOG *MILD* ALGORI... Q6 SC Last administered on 09/21/16 04:20; Admin Dose 4 UNIT; Start 09/21/16 at 00:00; Status Future Hold Miscellaneous Information 1 ea NOTE XX ; Start 09/20/16 at 22:00 Glucose (Glutose) 15 gm Q15M PRN PO DECREASED GLUCOSE; Start 09/20/16 at 22:00 Glucose (Glutose) 22.5 gm Q15M PRN PO DECREASED GLUCOSE; Start 09/20/16 at 22: 00 Dextrose (D50w Syringe) 25 ml Q15M PRN IV DECREASED GLUCOSE; Start 09/20/16 at 22:00 Dextrose (D50w Syringe) 50 ml Q15M PRN IV DECREASED GLUCOSE; Start 09/20/16 at 22:00 Glucagon (Glucagen) 1 mg Q15M PRN IM DECREASED GLUCOSE; Start 09/20/16 at 22:00 Glucose 15 gm 15 gm Q15M PRN BUCCAL DECREASED GLUCOSE; Start 09/20/16 at 22:00 Sodium Chloride 1,000 ml @ 100 mls/hr Q10H IV Last administered on 09/22/16 06:15; Admin Dose 100 MLS/HR; Start 09/20/16 at 22:30 Fentanyl 100 ml @ 2.5 mls/hr TITRATE IV ; Start 09/20/16 at 23:30 Propofol 100 ml @ 4.5 mls/hr Q12H IV Last administered on 09/22/16 03:41; Admin Dose 2.7 MLS/HR; Start 09/20/16 at 23:30 Midazolam HCl 50 ml @ 1 mls/hr TITRATE IV ; Start 09/20/16 at 23:30 Vecuronium [place] 100 mg/ Dextrose 100 ml @ 7.5 mls/hr TITRATE IV Last administered on 09/22/16 01:21; Admin Dose 15 MLS/HR; Start 09/20/16 at 23:30 Dopamine HCl/ Dextrose 250 ml @ 11.25 mls/ hr TITRATE IV Last administered on 09/21/16 16:32; Admin Dose 33.75 MLS/HR; Start 09/21/16 at 00:30 Norepinephrine/ Dextrose (Levophed/D5W) 500 ml @ 1.87 mls/hr TITRATE IV Last administered on 09/21/16 21:36; Admin Dose 5.62 MLS/HR; Start 09/21/16 at 07:00 Acetaminophen (Tylenol Liquid) 650 mg Q4H PRN NGT PAIN AND OR ELEVATED TEMP Last administered on 09/22/16 05:41; Admin Dose 650 MG; Start 09/21/16 at 02:00 Meperidine HCl (Demerol) 12.5 mg Q4H PRN IV PAIN; Start 09/21/16 at 02:00 Eye Lubricant (Artificial Tears Oph) 2 drop QID BOTH EYES Last administered on 09/22/16 12:27; Admin Dose 2 DROP; Start 09/21/16 at 09:00 Meperidine HCl (Demerol) 25 mg Q4H PRN IV PRN FOR SEVERE SHIVERING; Start 09/21 at 05:00 Diagnostic Test (Pha) (Accucheck) 1 ea Q1H XX Last administered on 09/22/16 15 :26; Admin Dose 1 EA; Start 09/21/16 at 08:00 Dextrose (D50w Syringe) 25 ml Q15M PRN IV Till BS 80 mg/dL or above x2; Start 09/21/16 at 08:00 Dextrose 50 ml 50 ml Q15M PRN IV Till BS 80 mg/dL or above x2; Start 09/21/16 at 08:00 Piperacillin Sod/ Tazobactam Sod (Zosyn 3.375gm/ 100 ml (Pmx)) 100 ml @ 25 mls/ hr TID@02,,18 IVPB Last administered on 09/22/16 09:49; Admin Dose 25 MLS/HR ; Start 09/22/16 at 02:00 Aspirin (Aspirin) 81 mg DAILY NGT Last administered on 09/22/16 09:18; Admin Dose 81 MG; Start 09/22/16 at 09:00 Atorvastatin Calcium (Lipitor) 80 mg HS NGT ; Start 09/22/16 at 21:00 Pantoprazole (Protonix Iv) 40 mg DAILY@06 IV ; Start 09/23/16 at 06:00 BENJAMIN OSEGUERA Sep 22, 2016 15:45
--- NOTE | 2016-09-22 16:08 | EN ---
Date/Time of Note Date/Time of Note DATE: 09/22/16 TIME: 16:05 Event Note Cardiology Cardiology Event Note Procedure Note -- Femoral Arterial Line placement Indication: Need for pressors and invasive hemodynamic monitoring Consent was not able to be obtained from next of kin, but given that the patient 's blood pressure was dropping, it was felt important to proceed urgently. Using modified Seldinger technique, a needle was advanced into the left common femoral artery. A guidewire was advanced through the needle, the needle removed , and a central arterial catheter was advanced over the guidewire. Good blood flow obtained, and the catheter was sutured into place. No immediate complications. EBL 10 cc. BENJAMIN OSEGUREA Sep 22, 2016 16:08
[2016-09-22] MEDS ORDERED: LIDOCAINE 1% (MDV) 20 ML INJ SC ONE (16:30)
[2016-09-22] MEDS ORDERED: SOD CHLORIDE 0.9% 1,000 ML IV ONE (16:30)
[2016-09-22] MEDS ORDERED: PHENYLephrine 20MG IN 250 ML 250 ML IV PRN (16:30)
[2016-09-22 17:25] LABS: PARTIAL THROMBOPLASTIN TIME 35.4 Sec (25.0-35.0)
--- NOTE | 2016-09-22 18:15 | EN ---
Date/Time of Note Date/Time of Note DATE: 09/22/16 TIME: 18:12 ER Progress Note I was called to the intensive care unit to evaluate the patient for central line placement. In short this is a 71-year-old female who was admitted for myocardial infarction who is now been hypotensive. The nurse in the ICU is having difficulty with the right femoral sheath. She thinks that it is not in good position. The patient requires pressors. General: No significant distress, intubated Head: Normocephalic, atraumatic. ENT: Endotracheal tube in position Neck: Supple, no lymphadenopathy Respiratory: Lungs clear bilaterally, no distress Cardiovascular: RRR, no murmurs, rubs, or gallops Abdominal: Soft, non-tender, non-distended, no peritoneal signs : Deferred MSK: Limited movement of all 4 extremities, no bony abnormalities Neurologic: Limited exam, and encephalopathic, limited movement of all 4 extremities Skin: No rash, no significant breakdown Psych: Unable to assess Central Line Note: Indication: Critically ill patient requiring specialized vascular access for fluid or pressor management Location: Right femoral vein Procedure: Sterile procedure was observed throughout insertion of the central line. The insertion site was prepped with sterile solution. Insertion of a needle into the vein was obtained with return of dark, nonpulsatile blood. The wire was then threaded through the needle without complication. A small skin incision was made, the needle was removed intact, dilation of the vein was performed and insertion of a triple lumen catheter was completed. The catheter was then sutured to the skin. All 3 ports ivy back and flushed without difficulty. A sterile dressing was applied. The patient tolerated the procedure well there were no complications. It should be noted given that the patient had a significant body habitus the placement of the central line was difficult. The patient had a total of 3 attempts of line placement with access of the femoral artery the first 2 times. Direct pressure was held with no resultant hematoma. No dilation performed. Further management by primary team. Diagnostic impression Cardiogenic shock DAMIR CRISTOBAL MD Sep 22, 2016 18:15
[2016-09-22] MEDS ORDERED: PHENYLephrine 40 MG in DEXTROSE 5% 496 ML IV PRN (20:00)
[2016-09-22] MEDS: ATORVASTATIN 80 MG TAB NGT SCH (20:09)
[2016-09-22] MEDS: INSULIN REGULAR, HUMAN 100 UNIT in SOD CHLORIDE 0.9% 99 ML IV SCH ×2 (22:01)
--- NOTE | 2016-09-22 22:55 | PN ---
DATE: 09/22/2016 LOCATION: ICU. SUBJECTIVE: The patient is unresponsive, noncommunicative. OBJECTIVE: VITAL SIGNS: Temperature 98.3, pulse of 75 to 96, respirations 20 on mechanical ventilation, blood pressure 101/38, oxygen saturation 95% on FIO2 of 30% mechanical ventilation. GENERAL: Well-developed, well-nourished female in no acute distress, lying in bed. SKIN: Multiple purpuric lesions over the extremities. Hands and feet are cool with mottling. CHEST: Scant end-expiratory wheeze, otherwise clear. HEART: Regular. No murmurs, gallops, or rubs noted. ABDOMEN: Quiet, nontender, soft. EXTREMITIES: Trace edema bilateral upper extremities. NEUROLOGIC: The patient is obtunded. LABORATORY DATA: PT of 24.2, INR of 2.15, PTT 35.4. Fibrinogen 385. Sodium 135, potassium 4.8, ch loride 102, bicarbonate 18, creatinine 2.59, BUN 46, glucose 160. Troponin 45.7. Amylase 216, lipa se 1023. Chest x-ray dated 09/22/2016 shows endotracheal tube and nasogastric tube in satisfactory position, mild right upper airspace disease, which is unchanged. ASSESSMENT AND PLAN: 1. Status post ST elevation myocardial infarction, profound bradycardia, status post stenting. The patient remains in critical condition with significant hypotension requiring significant pressure s upport, mechanical ventilation. The patient's condition remains critical. Continue ICU monitoring. Continue medications as ordered. 2. Possible aspiration pneumonia. The patient's white blood cell count increased today. The kirill nt is currently on antibiotics. We will continue with pulmonary toilet, mechanical ventilation, and IV antibiotics. 3. Acute renal failure, remains stable and likely related to hypotension with medications. The pat ient's urine output has improved somewhat. We will continue to monitor. 4. Diabetes, remains stable on insulin drip protocol. We will continue with this for now as madi t is n.p.o. Dictated By: TOVA WRIGHT MD SR/NTS Conf#: [id number] DID#: [id number]
[2016-09-23] VITALS (108 sets, daily range): BP systolic 74–151; BP diastolic 37–101; PULSE 58–129; RESP 13–21
[2016-09-23] MEDS: ACCU-CHEK XX SCH ×24 (00:09→23:00)
[2016-09-23] MEDS: PIPER-TAZO 3.375 GM IV (PMX) 100 ML IVPB SCH ×3 (02:06→17:30)
[2016-09-23] MEDS: SOD CHLORIDE 0.9% 1,000 ML IV SCH ×3 (04:05→20:30)
[2016-09-23 05:03] LABS: ADD SCAN DIFF NO
[2016-09-23 05:08] LABS: BASOPHILS % 0.1 % (0.0-2.0); HEMATOCRIT 34.1 % (37.0-47.0); HEMOGLOBIN 10.9 g/dl (12.0-16.0); LYMPHOCYTES # 1.1 10^3/ul (0.8-2.9); LYMPHOCYTES % 5.6 % (15.0-51.0); MEAN CORPUSCULAR HEMOGLOBIN 27.1 pg (29.0-33.0); MEAN CORPUSCULAR VOLUME 84.8 fl (82.0-101.0); MONOCYTE # 1.2 10^3/ul (0.3-0.9); MONOCYTES % 6.1 % (0.0-11.0); NEUTROPHIL # 17.4 10^3/ul (1.6-7.5); NEUTROPHILS % 86.6 % (39.0-77.0); NUCLEATED RED BLOOD CELLS # 0.6 10^3/ul (0.0-0.0); NUCLEATED RED BLOOD CELLS% 2.8 /100WBC (0.0-0.0); PLATELET COUNT 309 10^3/UL (140-415); RED BLOOD COUNT 4.02 10^6/ul (4.20-5.40); RED CELL DISTRIBUTION WIDTH 14.6 % (11.5-14.5); WHITE BLOOD COUNT 20.1 10^3/ul (4.8-10.8)
[2016-09-23] MEDS: PANTOPRAZOLE 40 MG INJ IV SCH (05:25)
[2016-09-23 05:31] LABS: POTASSIUM 4.1 mmol/L (3.5-5.1)
[2016-09-23 05:34] LABS: CREATININE 3.55 mg/dl (0.44-1.00)
[2016-09-23 05:35] LABS: CALCIUM 6.1 mg/dl (8.4-10.2); PHOSPHORUS 5.4 mg/dl (2.5-4.9)
--- NOTE | 2016-09-23 07:36 | RADRPT ---
PROCEDURE: XR Chest. CLINICAL INDICATION: Shortness of breath. TECHNIQUE: Single frontal view. COMPARISON: 09/22/2016. FINDINGS: The endotracheal tube and nasogastric tube remain in satisfactory position. There is mild atelectas is at the lung bases. Previously noted right upper lobe air space disease has improved. The lungs are otherwise clear. The heart size is normal. There is no pleural effusion. There is no pneumothorax. IMPRESSION: 1. Endotracheal tube and nasogastric tube in satisfactory position. 2. Mild atelectasis at the lung bases. 3. Otherwise unremarkable study. RPTAT: QQ .Arnaldo Back MD, MD Date Time Electronically viewed and signed by .Arnaldo Back MD, MD on 09/23/2016 07:36 .R/
[2016-09-23] MEDS: ARTIFICIAL TEARS 15 ML OPH BOTH EYES SCH ×4 (08:58→20:27)
[2016-09-23] MEDS: ASPIRIN 81 MG TAB NGT SCH (08:58)
[2016-09-23] MEDS: TICAGRELOR 90 MG TABLET PO SCH ×2 (08:59→20:28)
[2016-09-23 10:28] LABS: AADO2 Arterial 91.8 mmHg (7.0-24.0); Arterial Base Excess -6.5 mmol/L (-3.0-3); Arterial COHb 0.2 % (0.0-3.0); Arterial Fraction of Oxyhgb 95.9 % (93.0-99.0); Arterial HCO3 16.5 mmol/L (22.0-26.0); Arterial MetHb 0.4 % (0.0-1.5); Arterial Total Hemglobin 11.8 g/dl (12.0-18.0); MODE VENT - AC
[2016-09-23] MEDS ORDERED: NA BICARBONATE 8.4% 50 ML SYG IV STA (10:35)
[2016-09-23] MEDS: PROPOFOL 100 ML IV SCH ×2 (11:12→23:30)
--- NOTE | 2016-09-23 12:51 | CONS ---
Date/Time of Note Date/Time of Note DATE: 09/23/16 TIME: 12:45 Assessment/Plan Assessment/Plan Chief Complaint/Hosp Course 71 year old female with history of diabetes found unresponsive by with profound bradycardia, STEMI requiring RCA stent, hypothermia protocol with no improvement in neurologic exam, pending further studies and apnea test for brain . -absent brainstem reflexes on examination -CTH pending -EEG pending -planned for apnea test Problems: Consultation Date/Type/Reason Admit Date/Time September 20, 2016 Date of Consultation: Sep 23, 2016 Type of Consultation: Neurology Reason for Consultation cardiac arrest, evaluation for brain Referring Provider: ZANDRA ROBISON MD, [facility] Hx of Present Illness 71 year old female with history of DM found unresponsive in bed by , admitted with Code STEMI on admission received atropine for bradycardia, s/p intervention with RCA stent, placed on hypothermia protocol with no improvement in neurologic exam. She remains unresponsive off sedation, Head CT and Routine EEG are currently pending. Subjective hx not possible: pt non-verbal, pt critical Psychological: other (unable) Past Medical History Medical History: diabetes Past Surgical History Past Surgical Hx: noncontributory Social History Alcohol Use: sober Smoking Status: Unknown if ever smoked Exam/Review of Systems Vital Signs Vitals Vital Signs Date Time Temp Pulse Resp B/P Pulse Ox O2 Delivery O2 Flow Rate FiO2 09/23/16 12:00 108 09/23/16 11:30 83 100 09/23/16 11:20 16 09/23/16 10:15 128/65 09/23/16 10:00 Mechanical Ventilator 09/23/16 09:00 98.5 09/20/16 18:19 15.0 Intake and Output 09/22/16 09/22/16 09/23/16 15:00 23:00 07:00 Intake Total 1326.29 ml 1774.24 ml 1413.5 ml Output Total 47 ml 726 ml 636 ml Balance 1279.29 ml 1048.24 ml 777.5 ml Exam unresponsive intubated off sedation no response to verbal stimuli CN: pupils dilated 4 mm irregular non reactive, absent corneals, absent gag reflex absent oculocephalics Motor: no response to noxious stimuli Results Result Diagram: 09/23/16 0400 09/23/16 0400 Results 24 hrs Laboratory Tests Test 09/22/16 13:02 09/22/16 14:31 09/22/16 15:26 09/22/16 18:25 Bedside Glucose 195 186 183 171 Test 09/22/16 19:50 09/22/16 21:01 09/22/16 21:58 09/22/16 23:07 Bedside Glucose 187 223 H 213 197 Test 09/23/16 00:08 09/23/16 01:05 09/23/16 01:56 09/23/16 04:00 Bedside Glucose 191 170 162 Anion Gap 18 H Basophils # 0.0 Basophils % 0.1 Blood Urea Nitrogen 54 H Calcium Level 6.1 L Carbon Dioxide Level 20 L Chloride Level 103 Creatinine 3.55 H Eosinophils # 0.0 Eosinophils % 0.0 Glucose Level 125 Hematocrit 34.1 L Hemoglobin 10.9 L Lymphocytes # 1.1 Lymphocytes % 5.6 L Magnesium Level 2.0 Mean Corpuscular Hemoglobin 27.1 L Mean Corpuscular Hemoglobin Concent 32.0 Mean Corpuscular Volume 84.8 Mean Platelet Volume 11.0 H Monocytes # 1.2 H Monocytes % 6.1 Neutrophils # 17.4 H Neutrophils % 86.6 H Nucleated Red Blood Cells # 0.6 H Nucleated Red Blood Cells % 2.8 H Phosphorus Level 5.4 H Platelet Count 309 Potassium Level 4.1 Red Blood Count 4.02 L Red Cell Distribution Width 14.6 H Sodium Level 137 White Blood Count 20.1 H Test 09/23/16 04:04 09/23/16 05:43 09/23/16 07:42 09/23/16 10:07 Bedside Glucose 132 105 109 140 Test 09/23/16 10:15 09/23/16 12:16 Arterial Blood HCO3 16.5 L Arterial Blood Base Excess -6.5 L Arterial Blood Oxygen Saturation 96.5 Raz Test N/A Arterial Blood Gas Puncture Site A-Line Arterial Blood Carboxyhemoglobin 0.2 Arterial Blood Date Drawn 09/23/2016 10:20:06 AM Arterial Blood Methemoglobin 0.4 Arterial Blood pCO2 (Temp correct) 26.0 L Arterial Blood pH (Temp corrected) 7.421 Arterial Blood pO2 (Temp corrected) 91.6 Blood Gas A-a O2 Differential 91.8 H Blood Gas Actual Respiration Rate 20 Blood Gas Modality VENT - AC Blood Gas Notified Time 09/23/2016 10:28:11 AM Blood Gas Notified Whom TM Blood Gas Respiration Rate 20.0 Blood Gas Specimen Source Blood arterial Blood Gas Temperature 37.0 Blood Gas Tidal Volume 500.0 FiO2 30.0 Oxyhemoglobin Percent 95.9 Total Hemoglobin 11.8 L Bedside Glucose 128 Medications Medications Current Medications Ticagrelor (Brilinta) 90 mg BID PO Last administered on 09/23/16 08:59; Admin Dose 90 MG; Start 09/21/16 at 09:00 Insulin Aspart (Novolog Insulin Pen) NOVOLOG *MILD* ALGORI... Q6 SC Last administered on 09/21/16 04:20; Admin Dose 4 UNIT; Start 09/21/16 at 00:00; Status Future Hold Miscellaneous Information 1 ea NOTE XX ; Start 09/20/16 at 22:00 Glucose (Glutose) 15 gm Q15M PRN PO DECREASED GLUCOSE; Start 09/20/16 at 22:00 Glucose (Glutose) 22.5 gm Q15M PRN PO DECREASED GLUCOSE; Start 09/20/16 at 22: 00 Dextrose (D50w Syringe) 25 ml Q15M PRN IV DECREASED GLUCOSE; Start 09/20/16 at 22:00 Dextrose (D50w Syringe) 50 ml Q15M PRN IV DECREASED GLUCOSE; Start 09/20/16 at 22:00 Glucagon (Glucagen) 1 mg Q15M PRN IM DECREASED GLUCOSE; Start 09/20/16 at 22:00 Glucose 15 gm 15 gm Q15M PRN BUCCAL DECREASED GLUCOSE; Start 09/20/16 at 22:00 Sodium Chloride 1,000 ml @ 100 mls/hr Q10H IV Last administered on 09/23/16 04:05; Admin Dose 100 MLS/HR; Start 09/20/16 at 22:30 Fentanyl 100 ml @ 2.5 mls/hr TITRATE IV ; Start 09/20/16 at 23:30 Propofol 100 ml @ 4.5 mls/hr Q12H IV Last administered on 09/22/16 03:41; Admin Dose 2.7 MLS/HR; Start 09/20/16 at 23:30 Dopamine HCl/ Dextrose 250 ml @ 11.25 mls/ hr TITRATE IV Last administered on 09/21/16 16:32; Admin Dose 33.75 MLS/HR; Start 09/21/16 at 00:30 Norepinephrine/ Dextrose (Levophed/D5W) 500 ml @ 1.87 mls/hr TITRATE IV Last administered on 09/23/16 05:35; Admin Dose 26.25 MLS/HR; Start 09/21/16 at 07: 00 Acetaminophen (Tylenol Liquid) 650 mg Q4H PRN NGT PAIN AND OR ELEVATED TEMP Last administered on 09/22/16 05:41; Admin Dose 650 MG; Start 09/21/16 at 02:00 Eye Lubricant (Artificial Tears Oph) 2 drop QID BOTH EYES Last administered on 09/23/16 08:58; Admin Dose 2 DROP; Start 09/21/16 at 09:00 Diagnostic Test (Pha) (Accucheck) 1 ea Q1H XX Last administered on 09/23/16 11 :12; Admin Dose 1 EA; Start 09/21/16 at 08:00 Dextrose (D50w Syringe) 25 ml Q15M PRN IV Till BS 80 mg/dL or above x2; Start 09/21/16 at 08:00 Dextrose 50 ml 50 ml Q15M PRN IV Till BS 80 mg/dL or above x2; Start 09/21/16 at 08:00 Piperacillin Sod/ Tazobactam Sod (Zosyn 3.375gm/ 100 ml (Pmx)) 100 ml @ 25 mls/ hr TID@02,,18 IVPB Last administered on 09/23/16 10:08; Admin Dose 25 MLS/HR ; Start 09/22/16 at 02:00 Aspirin (Aspirin) 81 mg DAILY NGT Last administered on 09/23/16 08:58; Admin Dose 81 MG; Start 09/22/16 at 09:00 Atorvastatin Calcium (Lipitor) 80 mg HS NGT Last administered on 09/22/16 20: 09; Admin Dose 80 MG; Start 09/22/16 at 21:00 Pantoprazole 40 mg 40 mg DAILY@06 IV Last administered on 09/23/16 05:25; Admin Dose 40 MG; Start 09/23/16 at 06:00 Phenylephrine HCl/ Dextrose (Tyree-Syneph/D5W) 500 ml @ 75 mls/hr TITRATE PRN IV bp SUPPORT; Start 09/22/16 at 20:00 CHINYERE GARCIA MD Sep 23, 2016 12:51
--- NOTE | 2016-09-23 13:13 | RADRPT ---
PROCEDURE: CT Brain without contrast. CLINICAL INDICATION: Neurologic deficit TECHNIQUE: A CT of the brain was performed on multidetector high-resolution CT scanner utilizing a xial sections from the skull base through the vertex without contrast. One or more of the following dose reduction techniques were used: Automated exposure control, Adjustment of the mA and/or kV acc ording to patient size, and/or use of iterative reconstruction technique. DOSE: CTDI = 45 mGy and the DLP = 630 mGy-cm. COMPARISON: None available FINDINGS: No acute intracranial hemorrhage, significant mass effect or midline shift. The sandhu-white different iation is grossly preserved. The ventricles are normal in size for age. Vascular calcifications. Pa rtially opacified paranasal sinuses. IMPRESSION: No acute intracranial hemorrhage or significant mass effect. Vascular calcifications. Partially opacified paranasal sinuses. RPTAT: AA .Drew Aceves MD, MD Date Time Electronically viewed and signed by .Drew Aceves MD, on 09/23/2016 13:12 .T/
[2016-09-23 13:16] LABS: AADO2 Arterial 320.9 mmHg (7.0-24.0); Arterial Base Excess -6.2 mmol/L (-3.0-3); Arterial COHb 0.2 % (0.0-3.0); Arterial Fraction of Oxyhgb 98.7 % (93.0-99.0); Arterial HCO3 17.8 mmol/L (22.0-26.0); Arterial MetHb 0.4 % (0.0-1.5); MODE VENT - AC
--- NOTE | 2016-09-23 16:59 | PN ---
DATE: 09/23/2016 SUBJECTIVE: The patient remains unresponsive on mechanical ventilation. She is off hypothermia pro tocol and has been adequately rewarmed. Currently she is breathing at set ventilator rate, has no g ag reflex. Pupils are, however, sluggish. PHYSICAL EXAMINATION: VITAL SIGNS: Temperature is 98, pulse is 100, blood pressure 128/86, O2 saturation 96%, FIO2 of 30% . NECK: Trach site clear. HEENT: Orally intubated. Dry mucous membranes. CARDIAC: S1, S2, no added sounds or murmurs. CHEST: Diminished air entry bilaterally. ABDOMEN: Soft, nontender. No guarding or rebound. EXTREMITIES: No cyanosis, clubbing, 1+ edema. NEUROLOGIC: Generalized weakness. LABORATORY DATA: White count 20.1, hemoglobin 10.9, platelets 301. BUN 53, creatinine 3.55. INR w as 2.15. ABG: pH 7.42, pCO2 of 26, pO2 of 91, bicarbonate of 16.5. IMAGING: Chest x-ray was reviewed, shows bibasilar atelectasis. IMPRESSION AND PLAN: 1. Possible cardiac arrest. 2. Likely anoxic encephalopathy. 3. Possible aspiration pneumonia. 4. Metabolic acidosis. 5. Acute renal failure, likely acute tubular necrosis injury. 6. Dysphagia requiring nasogastric tube feeding. PLAN: 1. The patient will require continued mechanical ventilation. 2. EEG with neurology evaluation to exclude severe anoxic brain injury. 3. CT of head. 4. Apnea testing on arterial blood gas. 5. Renal recommendations. 6. DVT and GI prophylaxis. Overall prognosis is very poor. Family made aware. Dictated By: ZANDRA ASTORGA/JERROD Conf#: [id number] DID#: [id number]
[2016-09-23] MEDS: INSULIN REGULAR, HUMAN 100 UNIT in SOD CHLORIDE 0.9% 99 ML IV SCH ×2 (18:06)
--- NOTE | 2016-09-23 20:14 | RADRPT ---
PROCEDURE: Renal US. CLINICAL INDICATION: Renal failure TECHNIQUE: Multiple sonographic images of the kidneys were obtained. The images were reviewed on a PACS workstation. COMPARISON: No prior studies are available for comparison. FINDINGS: The kidneys are well visualized. The right kidney measures 9.9 x 4.5 x 4.4 cm. The left kidney measu res 8.3 x 3.7 x 84.3 cm. Increased echogenicity in the bilateral renal cortex is seen. There is no evidence for obstructive uropathy. The visualized urinary bladder is not visualized secondary to a F oley catheter and overlying bowel gas. IMPRESSION: Echogenic teller kidneys consistent with renal parenchymal disease. Correlation with renal function tests is suggested. RPTAT: HPNM Physician Cassy Date Time Electronically viewed and signed by Physician Cassy on 09/23/2016 20:14 /
[2016-09-23] MEDS: ATORVASTATIN 80 MG TAB NGT SCH (20:27)
[2016-09-24] VITALS (72 sets, daily range): BP systolic 80–154; BP diastolic 44–78; PULSE 56–120; RESP 12–31
[2016-09-24] MEDS: SOD CHLORIDE 0.9% 1,000 ML IV SCH ×2 (00:30→11:03)
[2016-09-24] MEDS: ACCU-CHEK XX SCH ×24 (00:44→23:40)
[2016-09-24] MEDS: PIPER-TAZO 3.375 GM IV (PMX) 100 ML IVPB SCH ×3 (02:14→17:26)
--- NOTE | 2016-09-24 02:35 | PN ---
DATE: 09/23/2016 SUBJECTIVE: Patient is intubated, nonresponsive. OBJECTIVE VITAL SIGNS: Temperature 98.9, blood pressure 124/66, pulse of 104, O2 saturation 100% on mechanical ventilator. Intake and output shows intake of 4382 mL, output of about 2409 mL, for a positive fluid balance of 1973 mL. HEENT: Pupils are sluggish. Oropharynx dry. CHEST: Upper airway rhonchi via ET tube. CARDIAC: Mild tachycardia. ABDOMEN: Hypoactive bowel sounds, soft, nondistended. EXTREMITIES: No clubbing, cyanosis, or edema. LABORATORY DATA: WBC 20.1, hemoglobin 10.9, hematocrit 34.1 and platelet count 309,000. The patient had a head CT done today that showed no acute intracranial hemorrhage or significant mass effect. There is some vascular calcification and partially opacified perinasal sinuses. Chest x-ray shows ET tube and nasogastric tube in good position, mild atelectasis at the lung bases, otherwise unremarkable study. Her blood gas shows pH of 7.379, pCO2 of 30.9, PO2 361. The patient's sodium is 137, potassium 4.1, chloride 103, carbon dioxide 20, BUN 54, creatinine 3.55. Blood cultures have been negative for the past 2 days. ASSESSMENT AND PLAN: 1. Altered mental status. Patient is off hypothermia protocol today and has been rewarmed. She has been evaluated by neurology to exclude severe anoxic brain injury and is awaiting EEG and apnea testing on arterial blood gas. 2. The patient is status post ST elevation myocardial infarction. The patient is status post stenting and was hypotensive but is now improving. Continue current support therapy pending neurological evaluation. 2. Elevated white blood cells may be due to cardiogenic shock, but will check for other causes of infection. Since her chest x-ray is negative for pneumonia , we will check a urinalysis and urine culture. 3. Acute renal failure, most likely due to hypoperfusion from cardiogenic shock. Continue hydration and follow BUN and creatinine. 4. Diabetes mellitus. Continue Accu-Cheks with regular insulin coverage. Dictated By: SONALI WALKER MD DP/NTS Conf#: [id number] DID#: [id number] MTDD
[2016-09-24 04:46] LABS: ADD SCAN DIFF NO
[2016-09-24 04:59] LABS: POTASSIUM 4.7 mmol/L (3.5-5.1)
[2016-09-24] MEDS: PANTOPRAZOLE 40 MG INJ IV SCH (05:36)
[2016-09-24 05:44] LABS: BASOPHILS % 0.1 % (0.0-2.0); HEMATOCRIT 33.4 % (37.0-47.0); HEMOGLOBIN 10.3 g/dl (12.0-16.0); LYMPHOCYTES # 1.5 10^3/ul (0.8-2.9); LYMPHOCYTES % 7.1 % (15.0-51.0); MEAN CORPUSCULAR HEMOGLOBIN 26.5 pg (29.0-33.0); MEAN CORPUSCULAR HGB CONC 30.8 g/dl (32.0-37.0); MEAN CORPUSCULAR VOLUME 85.9 fl (82.0-101.0); MEAN PLATELET VOLUME 11.1 fl (7.4-10.4); MONOCYTE # 1.4 10^3/ul (0.3-0.9); NEUTROPHIL # 17.4 10^3/ul (1.6-7.5); NEUTROPHILS % 84.2 % (39.0-77.0); NUCLEATED RED BLOOD CELLS # 0.7 10^3/ul (0.0-0.0); NUCLEATED RED BLOOD CELLS% 3.6 /100WBC (0.0-0.0); PLATELET COUNT 290 10^3/UL (140-415); RED BLOOD COUNT 3.89 10^6/ul (4.20-5.40); WHITE BLOOD COUNT 20.7 10^3/ul (4.8-10.8)
[2016-09-24 05:48] LABS: ALBUMIN/GLOBULIN RATIO 0.8; BILIRUBIN,DIRECT 0.4 mg/dl (0.00-0.20); BILIRUBIN,INDIRECT 0.4 mg/dl (0-1.1); BILIRUBIN,TOTAL 0.8 mg/dl (0.2-1.3); CREATININE 4.3 mg/dl (0.44-1.00); PHOSPHORUS 6.5 mg/dl (2.5-4.9); TOTAL PROTEIN 4.5 g/dl (6.1-8.1)
[2016-09-24 06:41] LABS: CALCIUM 5.7 mg/dl (8.4-10.2)
[2016-09-24 06:50] LABS: ADD UMIC YES; UR BILIRUBIN (Dip) NEGATIVE (NEGATIVE); UR BLOOD (Dip) 2+ (NEGATIVE); UR CLARITY CLOUDY (CLEAR); UR COLOR LT. YELLOW (YELLOW); UR KETONES (Dip) NEGATIVE (NEGATIVE); UR LEUKOCYTE ESTERASE (Dip) 1+ (NEGATIVE); UR NITRITE (Dip) NEGATIVE (NEGATIVE); UR TOTAL PROTEIN (Dip) 1+ (NEGATIVE); UR UROBILINOGEN (Dip) 0.2 E.U./dL (0.1-1.0)
[2016-09-24 07:32] LABS: URINE RBCS NONE SEEN /HPF (0)
--- NOTE | 2016-09-24 07:57 | CONS ---
DATE OF ADMISSION: 09/20/2016 DATE OF CONSULTATION: TYPE OF CONSULTATION: Renal. Thank you, Dr. Cisneros, for asking me to participate in the medical management of this patient. REASON FOR CONSULTATION: Renal failure. HISTORY OF PRESENT ILLNESS: This 71-year-old female is now in the intensive care unit. The patient is intubated on a ventilator and is unresponsive. The patient's recent history is as follows: The patient became suddenly unresponsive at home. The performed CPR, and paramedics were called. The paramedics found that the patient on their initial evaluation was bradycardic with faint peripheral pulses. The paramedics did not perform CPR. They transported the patient to the emergency room. The patient was bradycardic in the emergency room. She did have some apneic episodes but did maintain a weak pulse. Blood pressure was low. The patient was intubated. 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 Fuller. The patient had 2 coronary artery stents placed. The patient was transported back to the intensive care unit and was started on a hypothermia protocol. The patient is now out of the hypothermia protocol. She is unresponsive and intubated on a ventilator. The patient today had a serum creatinine of 3.55 with a BUN of 54. Her urine output has been decreasing over the last 3 days. Her urine output thus far today was only 47 mL. The patient is on a phenylephrine drip to support her blood pressure. The patient has no prior history of kidney disease. PAST MEDICAL HISTORY: Remarkable for type 2 diabetes mellitus, hypertension, cataracts, and hyperlipidemia. PREADMISSION MEDICATION: Included 1. Atorvastatin 10 mg a day. 2. Lisinopril 5 mg a day. 3. Eye drops for glaucoma. 4. Invokana. 5. NPH insulin. CURRENT MEDICATIONS: Include the following 1. Pantoprazole 40 mg IV. 2. Atorvastatin 80 mg by NG. 3. Phenylephrine. 4. Aspirin 81 mg by NG. 5. Zosyn. 6. Brilinta. 7. Sliding scale insulin coverage. PHYSICAL EXAMINATION: GENERAL: At this time reveals an ill-appearing female who is unresponsive, intubated on the ventilator. VITAL SIGNS: Temperature 98.9, pulse of 81, respirations 18, blood pressure 138 /71, O2 saturation 100% on an FIO2 of 50%. HEENT: Head normocephalic. Nose normal. Mouth with the ET tube in place. LUNGS: Clear to auscultation. HEART: Regular rhythm. No murmurs, gallops, or rubs. ABDOMEN: Soft, nontender. EXTREMITIES: No peripheral edema. She does have some stasis changes of the lower extremities. LABORATORY DATA: Done today, sodium 137, potassium 4.1, chloride 103, CO2 20, BUN 54, creatinine 3.55, phosphorus 5.4, magnesium 2.1, calcium 6.1. White blood count 20,100, hemoglobin 10.9, hematocrit 34.1, platelet count 309,000. IMPRESSION: 1. Acute renal failure. This patient was admitted after becoming unresponsive at home. She has had low blood pressure on several occasions, both preadmission and after admission. She no doubt suffered some anoxic injury to her kidneys and most likely has acute tubular necrosis. She is oliguric at this time. She has no prior history of kidney disease. 2. Altered mental status. Previous notes from other specialists are suspicious for anoxic encephalopathy. 3. Type 2 diabetes mellitus. 4. History of hypertension. 5. elevated liver enzymes probably due to anoxic injury to the liver . PLAN: 1. Renal ultrasound. 2. Urinalysis, urine sodium and urine creatinine. 3. Urine for eosinophils. 4. Continue current level of care with pressors to support blood pressure, Continue current IV fluids. 5. I will follow the patient along with you. Dictated By: DAMIR MARTINEZ MD, ND/JERROD Conf#: [id number] DID#: [id number] MTDD
--- NOTE | 2016-09-24 08:03 | CONS ---
Date/Time of Note Date/Time of Note DATE: 09/24/16 TIME: 07:46 Assessment/Plan Assessment/Plan Chief Complaint/Hosp Course 1. Acute Renal Failure due to ATN , oliguric . Renal ultrasound shows echogenic kidneys , suggestive of CKD . Will try albumin/furosemide to try and induce diuresis . 2. ALOC , probably anoxic encephalopathy 3. liver enzyme elevation due to anoxia 4. hypotensive on pressors 5. hypocalcemia/hypoalbuminemia , will check ionized calcium Problems: Consultation Date/Type/Reason Admit Date/Time Sep 20, 2016 at 19:21 Initial Consult Date 09/23/16 Type of Consultation: Neurology Referring Provider: [facility] ROBISON [facility] Interval Summary Free Text/Dictation Patient is in the ICU , unresponsive , intubated on ventilator . Subjective hx not possible: pt non-verbal Exam/Review of Systems Vital Signs Vitals Vital Signs Date Time Temp Pulse Resp B/P Pulse Ox O2 Delivery O2 Flow Rate FiO2 09/24/16 07:16 96 16 98 30 09/24/16 06:00 86/46 Mechanical Ventilator 09/24/16 04:00 98.2 09/20/16 18:19 15.0 Intake and Output 09/23/16 09/23/16 09/24/16 15:00 23:00 07:00 Intake Total 1145.00 ml 1138.00 ml 203.0 ml Output Total 37 ml 50 ml 46 ml Balance 1108.00 ml 1088.00 ml 157.0 ml Exam Constitutional: non-verbal Respiratory: clear to auscultation, diminished breath sounds Cardiovascular: regular rate and rhythm Gastrointestinal: soft Extremities: cyanosis Neurological: unresponsive Results Result Diagram: 09/24/16 0410 09/24/16 0410 Results 24 hrs Laboratory Tests Test 09/23/16 10:07 09/23/16 10:15 09/23/16 12:16 09/23/16 12:59 Bedside Glucose 140 128 Arterial Blood HCO3 16.5 L 17.8 L Arterial Blood Base Excess -6.5 L -6.2 L Arterial Blood Oxygen Saturation 96.5 99.3 H Raz Test N/A N/A Arterial Blood Gas Puncture Site A-Line A-Line Arterial Blood Carboxyhemoglobin 0.2 0.2 Arterial Blood Date Drawn 09/23/2016 10:20:06 AM 09/23/2016 1:00:00 PM Arterial Blood Methemoglobin 0.4 0.4 Arterial Blood pCO2 (Temp correct) 26.0 L 30.9 L Arterial Blood pH (Temp corrected) 7.421 7.379 Arterial Blood pO2 (Temp corrected) 91.6 361.2 H Blood Gas A-a O2 Differential 91.8 H 320.9 H Blood Gas Actual Respiration Rate 20 16 Blood Gas Modality VENT - AC VENT - AC Blood Gas Notified Time 09/23/2016 10:28:11 AM 09/23/2016 1:09:00 PM Blood Gas Notified Whom TM LS Blood Gas Respiration Rate 20.0 16.0 Blood Gas Specimen Source Blood arterial Blood arterial Blood Gas Temperature 37.0 37.0 Blood Gas Tidal Volume 500.0 500.0 FiO2 30.0 100.0 Oxyhemoglobin Percent 95.9 98.7 Total Hemoglobin 11.8 L 12.0 Test 09/23/16 14:21 09/23/16 16:00 09/23/16 18:04 09/23/16 20:17 Bedside Glucose 115 130 135 139 Test 09/23/16 22:00 09/23/16 23:00 09/24/16 00:44 09/24/16 02:17 Bedside Glucose 157 154 159 Urine Bilirubin NEGATIVE Urine Clarity CLOUDY Urine Color LT. YELLOW Urine Glucose 0.25% H Urine Hemoglobin 2+ H Urine Ketones NEGATIVE Urine Leukocyte Esterase 1+ H Urine Microscopic RBC NONE SEEN Urine Microscopic WBC 5-10 Urine Nitrite NEGATIVE Urine Specific [place] 1.020 Urine Total Protein 1+ H Urine Urobilinogen 0.2 E.U./dL Urine Yeast MANY Urine pH 5.0 Test 09/24/16 03:59 09/24/16 04:10 09/24/16 05:46 Bedside Glucose 165 160 Alanine Aminotransferase (ALT/SGPT) Pending Albumin 2.0 L Albumin/Globulin Ratio 0.80 Alkaline Phosphatase 183 H Anion Gap 20 H Aspartate Amino Transf (AST/SGOT) Pending Basophils # 0.0 Basophils % 0.1 Blood Urea Nitrogen 71 H Calcium Level 5.7 *L Carbon Dioxide Level 18 L Chloride Level 106 Creatinine 4.30 H Direct Bilirubin 0.40 H Eosinophils # 0.0 Eosinophils % 0.0 Globulin 2.50 Glucose Level 158 Hematocrit 33.4 L Hemoglobin 10.3 L Indirect Bilirubin 0.4 Lymphocytes # 1.5 Lymphocytes % 7.1 L Magnesium Level 2.0 Mean Corpuscular Hemoglobin 26.5 L Mean Corpuscular Hemoglobin Concent 30.8 L Mean Corpuscular Volume 85.9 Mean Platelet Volume 11.1 H Monocytes # 1.4 H Monocytes % 7.0 Neutrophils # 17.4 H Neutrophils % 84.2 H Nucleated Red Blood Cells # 0.7 H Nucleated Red Blood Cells % 3.6 H Phosphorus Level 6.5 H Platelet Count 290 Potassium Level 4.7 Red Blood Count 3.89 L Red Cell Distribution Width 15.0 H Sodium Level 139 Total Bilirubin 0.8 Total Protein 4.5 L White Blood Count 20.7 H Medications Medications Current Medications Ticagrelor (Brilinta) 90 mg BID PO Last administered on 09/23/16 20:28; Admin Dose 90 MG; Start 09/21/16 at 09:00 Insulin Aspart (Novolog Insulin Pen) NOVOLOG *MILD* ALGORI... Q6 SC Last administered on 09/21/16 04:20; Admin Dose 4 UNIT; Start 09/21/16 at 00:00; Status Future Hold Miscellaneous Information 1 ea NOTE XX ; Start 09/20/16 at 22:00 Glucose (Glutose) 15 gm Q15M PRN PO DECREASED GLUCOSE; Start 09/20/16 at 22:00 Glucose (Glutose) 22.5 gm Q15M PRN PO DECREASED GLUCOSE; Start 09/20/16 at 22: 00 Dextrose (D50w Syringe) 25 ml Q15M PRN IV DECREASED GLUCOSE; Start 09/20/16 at 22:00 Dextrose (D50w Syringe) 50 ml Q15M PRN IV DECREASED GLUCOSE; Start 09/20/16 at 22:00 Glucagon (Glucagen) 1 mg Q15M PRN IM DECREASED GLUCOSE; Start 09/20/16 at 22:00 Glucose 15 gm 15 gm Q15M PRN BUCCAL DECREASED GLUCOSE; Start 09/20/16 at 22:00 Sodium Chloride 1,000 ml @ 100 mls/hr Q10H IV Last administered on 09/24/16 00:30; Admin Dose 100 MLS/HR; Start 09/20/16 at 22:30 Fentanyl 100 ml @ 2.5 mls/hr TITRATE IV ; Start 09/20/16 at 23:30 Propofol 100 ml @ 4.5 mls/hr Q12H IV Last administered on 09/22/16 03:41; Admin Dose 2.7 MLS/HR; Start 09/20/16 at 23:30 Dopamine HCl/ Dextrose 250 ml @ 11.25 mls/ hr TITRATE IV Last administered on 09/21/16 16:32; Admin Dose 33.75 MLS/HR; Start 09/21/16 at 00:30 Norepinephrine/ Dextrose (Levophed/D5W) 500 ml @ 1.87 mls/hr TITRATE IV Last administered on 09/23/16 21:45; Admin Dose 30 MLS/HR; Start 09/21/16 at 07:00 Acetaminophen (Tylenol Liquid) 650 mg Q4H PRN NGT PAIN AND OR ELEVATED TEMP Last administered on 09/22/16 05:41; Admin Dose 650 MG; Start 09/21/16 at 02:00 Eye Lubricant (Artificial Tears Oph) 2 drop QID BOTH EYES Last administered on 09/23/16 20:27; Admin Dose 2 DROP; Start 09/21/16 at 09:00 Diagnostic Test (Pha) (Accucheck) 1 ea Q1H XX Last administered on 09/24/16 05 :38; Admin Dose 1 EA; Start 09/21/16 at 08:00 Dextrose (D50w Syringe) 25 ml Q15M PRN IV Till BS 80 mg/dL or above x2; Start 09/21/16 at 08:00 Dextrose 50 ml 50 ml Q15M PRN IV Till BS 80 mg/dL or above x2; Start 09/21/16 at 08:00 Piperacillin Sod/ Tazobactam Sod (Zosyn 3.375gm/ 100 ml (Pmx)) 100 ml @ 25 mls/ hr TID@18 IVPB Last administered on 09/24/16 02:14; Admin Dose 25 MLS/HR ; Start 09/22/16 at 02:00 Aspirin (Aspirin) 81 mg DAILY NGT Last administered on 09/23/16 08:58; Admin Dose 81 MG; Start 09/22/16 at 09:00 Atorvastatin Calcium (Lipitor) 80 mg HS NGT Last administered on 09/23/16 20: 27; Admin Dose 80 MG; Start 09/22/16 at 21:00 Pantoprazole 40 mg 40 mg DAILY@06 IV Last administered on 09/24/16t 05:36; Admin Dose 40 MG; Start 09/23/16 at 06:00 Phenylephrine HCl/ Dextrose (Tyree-Syneph/D5W) 500 ml @ 75 mls/hr TITRATE PRN IV bp SUPPORT; Start 09/22/16 at 20:00 DAMIR MARTINEZ MD Sep 24, 2016 07:56
--- NOTE | 2016-09-24 08:05 | RADRPT ---
PROCEDURE: XR Chest. CLINICAL INDICATION: Respiratory failure TECHNIQUE: Portable single view of the chest COMPARISON: 09/23 FINDINGS: Lung volumes are reduced compared with prior. Endotracheal and nasogastric tubes remain in good pos ition. Pulmonary vascular congestion and cardiomegaly are likely unchanged allowing for lung volume s. Calcified left lung granuloma. No pleural effusion. IMPRESSION: Shallower lung inflation. Otherwise likely stable exam. RPTAT: HLBE Mitali Lynne Physician Date Time Electronically viewed and signed by Mitali Lynne Physician on 09/24/2016 08:04 LE/
[2016-09-24 08:08] LABS: AADO2 Arterial 95.5 mmHg (7.0-24.0); Arterial Base Excess -8.8 mmol/L (-3.0-3); Arterial COHb 0.3 % (0.0-3.0); Arterial Fraction of Oxyhgb 94.7 % (93.0-99.0); Arterial MetHb 0.5 % (0.0-1.5); Arterial Total Hemglobin 10.4 g/dl (12.0-18.0); Blood Gas Low PEEP Setting 0 cmH2O; MODE VENT - AC
[2016-09-24] MEDS: ASPIRIN 81 MG TAB NGT SCH (08:48)
[2016-09-24] MEDS: ALBUMIN HUMAN 25% 100 ML IV SCH ×2 (08:48→17:12)
[2016-09-24] MEDS: TICAGRELOR 90 MG TABLET PO SCH ×2 (08:50→21:16)
[2016-09-24] MEDS: ARTIFICIAL TEARS 15 ML OPH BOTH EYES SCH ×4 (08:57→21:16)
[2016-09-24] MEDS: FUROSEMIDE 40 MG INJ IV SCH ×2 (10:07→17:25)
--- NOTE | 2016-09-24 10:42 | PN ---
DATE: 09/24/2016 SUBJECTIVE: The patient Smedberg remains unresponsive on mechanical ventilation with no significant sedation. She continues vasopressors. PHYSICAL EXAMINATION: VITAL SIGNS: Temperature 98, pulse is 100, blood pressure 93/53, O2 saturation 96%, FIO2 of 40%. HEENT: Orally intubated. Dry mucous membranes. Pupils are sluggish. CARDIAC: S1, S2, no added sounds or murmurs. CHEST: Diminished air entry bilaterally. ABDOMEN: Distended, soft, nontender. EXTREMITIES: No cyanosis, clubbing, 2+ edema. NEUROLOGIC: She has signs of mottling of her skin distally. LABORATORY DATA: White count 20.7, hemoglobin 10.3, platelets of 290, BUN 71, creatinine 4.3. AST 5829, ALT 5196. Arterial blood gas pH 7.37, pCO2 of 26, PaO2 of 87, bicarbonate was 15. CT of the brain was performed and demonstrated no acute bleed. EEG was performed, results of which are pendin g. IMPRESSION AND PLAN: 1. Cardiac arrest. 2. Likely anoxic brain injury. 3. Acute renal failure, probably acute tubular necrosis injury. 4. Evidence of shock liver. 5. Possible aspiration pneumonia with septic shock. The patient to: 1. Continue mechanical ventilation. 2. Continue renal recommendations. 3. Continue vasopressor support. 4. Broad-spectrum antibiotic coverage. 5. Glycemic management. 6. Brilinta following stent placement of RCA occlusion. Dictated By: ZANDRA ASTORGA/JERROD Conf#: [id number] DID#: [id number]
--- NOTE | 2016-09-24 11:08 | SP ---
DATE OF PROCEDURE: 09/23/2016 This is a 71-year-old woman who was found unresponsive and had a history of bradycardia requiring st ent placement. She also had a hypothermia protocol. EEG is to rule out brain . Her temperatu re was 98.5 degrees Fahrenheit. CURRENT MEDICATIONS: 1. Protonix. 2. Lipitor. 3. Phenylephrine. 4. Aspirin. 5. Piperacillin. 6. Brilinta. 7. Insulin. PROCEDURE: Utilizing a 16-channel EEG machine, cap scalp electrodes were applied in accordance with International 10/20 system. [id number] and [id number] montages were displayed. Electrical i mpedances were measured and reported less than 10 kilohms. DESCRIPTION: During the resting state, posterior dominant rhythm of about 6 to 7 Hz were seen bihem ispherically. Photic stimulation had no response. Hyperventilation was not performed. There was n o focal lateralizing or epileptiform discharge identified. INTERPRETATION: This EEG is abnormal due to presence of bihemispheric background slowing consistent with subcortical dysfunction consistent with encephalopathy without epileptiform activity. Please correlate these findings with the patient's clinical picture. Dictated By: ANABEL JEFFREY/JERROD Conf#: [id number] DID#: [id number]
[2016-09-24] MEDS: PROPOFOL 100 ML IV SCH ×2 (11:30→23:30)
--- NOTE | 2016-09-24 12:10 | CONS ---
Date/Time of Note Date/Time of Note DATE: 09/24/16 TIME: 12:07 Consult Date/Type/Reason Admit Date/Time Sep 20, 2016 at 19:21 Initial Consult Date 09/23/16 Type of Consultation: Neurology Reason for Consultation evaluate for hypoxic injury Ordering Provider: ZANDRA ROBISON [facility], [facility] Subjective remains intubated off sedation no improvement in examination Objective Vital Signs Date Time Temp Pulse Resp B/P Pulse Ox O2 Delivery O2 Flow Rate FiO2 09/24/16 10:55 92 16 97 30 09/24/16 08:15 99/53 Mechanical Ventilator 09/24/16 07:30 98.4 09/20/16 18:19 15.0 Intake and Output 09/23/16 09/23/16 09/24/16 15:00 23:00 07:00 Intake Total 1145.00 ml 1138.00 ml 917.0 ml Output Total 37 ml 50 ml 60 ml Balance 1108.00 ml 1088.00 ml 857.0 ml Exam intubated off sedation unresponsive to commands CN: pupils are sluggish reactive, absent corneals, absent gag reflex absent oculocephalics Motor no withdrawal Results/Medications Result Diagram: 09/24/16 0410 09/24/16 0410 Results 24 hrs Laboratory Tests Test 09/23/16 12:16 09/23/16 12:59 09/23/16 14:21 09/23/16 16:00 Bedside Glucose 128 115 130 Arterial Blood HCO3 17.8 L Arterial Blood Base Excess -6.2 L Arterial Blood Oxygen Saturation 99.3 H Raz Test N/A Arterial Blood Gas Puncture Site A-Line Arterial Blood Carboxyhemoglobin 0.2 Arterial Blood Date Drawn 09/23/2016 1:00:00 PM Arterial Blood Methemoglobin 0.4 Arterial Blood pCO2 (Temp correct) 30.9 L Arterial Blood pH (Temp corrected) 7.379 Arterial Blood pO2 (Temp corrected) 361.2 H Blood Gas A-a O2 Differential 320.9 H Blood Gas Actual Respiration Rate 16 Blood Gas Modality VENT - AC Blood Gas Notified Time 09/23/2016 1:09:00 PM Blood Gas Notified Whom LS Blood Gas Respiration Rate 16.0 Blood Gas Specimen Source Blood arterial Blood Gas Temperature 37.0 Blood Gas Tidal Volume 500.0 FiO2 100.0 Oxyhemoglobin Percent 98.7 Total Hemoglobin 12.0 Test 09/23/16 18:04 09/23/16 20:17 09/23/16 22:00 09/23/16 23:00 Bedside Glucose 135 139 157 Urine Bilirubin NEGATIVE Urine Clarity CLOUDY Urine Color LT. YELLOW Urine Eosinophils % 0.0 Urine Glucose 0.25% H Urine Hemoglobin 2+ H Urine Ketones NEGATIVE Urine Leukocyte Esterase 1+ H Urine Microscopic RBC NONE SEEN Urine Microscopic WBC 5-10 Urine Nitrite NEGATIVE Urine Random Creatinine 71.88 Urine Random Sodium 17 L Urine Specific [place] 1.020 Urine Total Protein 1+ H Urine Urobilinogen 0.2 E.U./dL Urine Yeast MANY Urine pH 5.0 Test 09/24/16 00:44 09/24/16 02:17 09/24/16 03:59 09/24/16 04:10 Bedside Glucose 154 159 165 Alanine Aminotransferase (ALT/SGPT) 5196 H Albumin 2.0 L Albumin/Globulin Ratio 0.80 Alkaline Phosphatase 183 H Anion Gap 20 H Aspartate Amino Transf (AST/SGOT) 5829 H Basophils # 0.0 Basophils % 0.1 Blood Urea Nitrogen 71 H Calcium Level 5.7 *L Carbon Dioxide Level 18 L Chloride Level 106 Creatinine 4.30 H Direct Bilirubin 0.40 H Eosinophils # 0.0 Eosinophils % 0.0 Globulin 2.50 Glucose Level 158 Hematocrit 33.4 L Hemoglobin 10.3 L Indirect Bilirubin 0.4 Lymphocytes # 1.5 Lymphocytes % 7.1 L Magnesium Level 2.0 Mean Corpuscular Hemoglobin 26.5 L Mean Corpuscular Hemoglobin Concent 30.8 L Mean Corpuscular Volume 85.9 Mean Platelet Volume 11.1 H Monocytes # 1.4 H Monocytes % 7.0 Neutrophils # 17.4 H Neutrophils % 84.2 H Nucleated Red Blood Cells # 0.7 H Nucleated Red Blood Cells % 3.6 H Phosphorus Level 6.5 H Platelet Count 290 Potassium Level 4.7 Red Blood Count 3.89 L Red Cell Distribution Width 15.0 H Sodium Level 139 Total Bilirubin 0.8 Total Protein 4.5 L White Blood Count 20.7 H Test 09/24/16 05:46 09/24/16 07:00 09/24/16 08:11 09/24/16 10:08 Bedside Glucose 160 168 164 Arterial Blood HCO3 15.0 L Arterial Blood Base Excess -8.8 L Arterial Blood Oxygen Saturation 95.5 Raz Test N/A Arterial Blood Gas Puncture Site A-Line Arterial Blood Carboxyhemoglobin 0.3 Arterial Blood Date Drawn 09/24/2016 7:40:47 AM Arterial Blood Methemoglobin 0.5 Arterial Blood pCO2 (Temp correct) 26.1 L Arterial Blood pH (Temp corrected) 7.377 Arterial Blood pO2 (Temp corrected) 87.7 Blood Gas A-a O2 Differential 95.5 H Blood Gas Actual Respiration Rate 16 Blood Gas Low PEEP Setting 0 Blood Gas Modality VENT - AC Blood Gas Notified Time 09/24/2016 8:08:43 AM Blood Gas Notified Whom JLD Blood Gas Respiration Rate 16.0 Blood Gas Specimen Source Blood arterial Blood Gas Temperature 37.0 Blood Gas Tidal Volume 500.0 FiO2 30.0 Oxyhemoglobin Percent 94.7 Total Hemoglobin 10.4 L Medications Current Medications Ticagrelor (Brilinta) 90 mg BID PO Last administered on 09/24/16 08:50; Admin Dose 90 MG; Start 09/21/16 at 09:00 Insulin Aspart (Novolog Insulin Pen) NOVOLOG *MILD* ALGORI... Q6 SC Last administered on 09/21/16 04:20; Admin Dose 4 UNIT; Start 09/21/16 at 00:00; Status Future Hold Miscellaneous Information 1 ea NOTE XX ; Start 09/20/16 at 22:00 Glucose (Glutose) 15 gm Q15M PRN PO DECREASED GLUCOSE; Start 09/20/16 at 22:00 Glucose (Glutose) 22.5 gm Q15M PRN PO DECREASED GLUCOSE; Start 09/20/16 at 22: 00 Dextrose (D50w Syringe) 25 ml Q15M PRN IV DECREASED GLUCOSE; Start 09/20/16 at 22:00 Dextrose (D50w Syringe) 50 ml Q15M PRN IV DECREASED GLUCOSE; Start 09/20/16 at 22:00 Glucagon (Glucagen) 1 mg Q15M PRN IM DECREASED GLUCOSE; Start 09/20/16 at 22:00 Glucose 15 gm 15 gm Q15M PRN BUCCAL DECREASED GLUCOSE; Start 09/20/16 at 22:00 Sodium Chloride 1,000 ml @ 100 mls/hr Q10H IV Last administered on 09/24/16 11:03; Admin Dose 100 MLS/HR; Start 09/20/16 at 22:30 Fentanyl 100 ml @ 2.5 mls/hr TITRATE IV ; Start 09/20/16 at 23:30 Propofol 100 ml @ 4.5 mls/hr Q12H IV Last administered on 09/22/16 03:41; Admin Dose 2.7 MLS/HR; Start 09/20/16 at 23:30 Dopamine HCl/ Dextrose 250 ml @ 11.25 mls/ hr TITRATE IV Last administered on 09/21/16 16:32; Admin Dose 33.75 MLS/HR; Start 09/21/16 at 00:30 Norepinephrine/ Dextrose (Levophed/D5W) 500 ml @ 1.87 mls/hr TITRATE IV Last administered on 09/23/16 21:45; Admin Dose 30 MLS/HR; Start 09/21/16 at 07:00 Acetaminophen (Tylenol Liquid) 650 mg Q4H PRN NGT PAIN AND OR ELEVATED TEMP Last administered on 09/22/16 05:41; Admin Dose 650 MG; Start 09/21/16 at 02:00 Eye Lubricant (Artificial Tears Oph) 2 drop QID BOTH EYES Last administered on 09/24/16 08:57; Admin Dose 2 DROP; Start 09/21/16 at 09:00 Diagnostic Test (Pha) (Accucheck) 1 ea Q1H XX Last administered on 09/24/16 10 :07; Admin Dose 1 EA; Start 09/21/16 at 08:00 Dextrose (D50w Syringe) 25 ml Q15M PRN IV Till BS 80 mg/dL or above x2; Start 09/21/16 at 08:00 Dextrose 50 ml 50 ml Q15M PRN IV Till BS 80 mg/dL or above x2; Start 09/21/16 at 08:00 Piperacillin Sod/ Tazobactam Sod (Zosyn 3.375gm/ 100 ml (Pmx)) 100 ml @ 25 mls/ hr TID@,,18 IVPB Last administered on 09/24/16 10:07; Admin Dose 25 MLS/HR ; Start 09/22/16 at 02:00 Aspirin (Aspirin) 81 mg DAILY NGT Last administered on 09/24/16 08:48; Admin Dose 81 MG; Start 09/22/16 at 09:00 Atorvastatin Calcium (Lipitor) 80 mg HS NGT Last administered on 09/23/16 20: 27; Admin Dose 80 MG; Start 09/22/16 at 21:00 Pantoprazole 40 mg 40 mg DAILY@06 IV Last administered on 09/24/16 05:36; Admin Dose 40 MG; Start 09/23/16 at 06:00 Phenylephrine HCl 40 mg/Dextrose 500 ml @ 75 mls/hr TITRATE PRN IV bp SUPPORT ; Start 09/22/16 at 20:00 Albumin Human (Albumin Human 25%) 100 ml @ 100 mls/hr Q8H IV Last administered on 09/24/16 08:48; Admin Dose 100 MLS/HR; Start 09/24/16 at 08:30 ; Stop 09/25/16 at 01:29 Furosemide (Lasix) 40 mg Q8H IV Last administered on 09/24/16 10:07; Admin Dose 40 MG; Start 09/24/16 at 08:30; Stop 09/25/16 at 00:31 Assessment/Plan Chief Complaint/Hosp Course 71 year old female with history of diabetes found unresponsive by with profound bradycardia, STEMI requiring RCA stent, hypothermia protocol with no improvement in neurologic exam. CTH showed no evidence of hypoxic injury. EEG showed bihemispheric slowing consistent with encephalopathy. no seizures however brain activity is present. -she is currently being evaluated for JONAH, would continue current management and i will continue to examine her over the next few days to evaluate her neurologic status as she does not meet the criteria for brain at this time Problems: CHINYERE GARCIA MD Sep 24, 2016 12:10
--- NOTE | 2016-09-24 18:14 | RADRPT ---
Vent Rate: 74 bpm RR Interval: 0 msec [place] Interval: 0 msec QRS Duration: 126 msec QT Interval: 420 msec QTC Interval: 466 msec P-R-T [place]: 0 - 42 - 143 degrees Wide QRS rhythm Nonspecific intraventricular block ST elevation, consider inferior injury or acute infarct ACUTE [place] Consider right ventricular involvement in acute inferior infarct Abnormal ECG Electronically Signed By: Max Pinto [id number]
--- NOTE | 2016-09-24 18:14 | RADRPT ---
Vent Rate: 97 bpm RR Interval: 0 msec [place] Interval: 0 msec QRS Duration: 94 msec QT Interval: 368 msec QTC Interval: 467 msec P-R-T [place]: 0 - 53 - [address] elevation, consider inferior injury or acute infarct ACUTE [place] Consider right ventricular involvement in acute inferior infarct Abnormal ECG Electronically Signed By: Max Pinto [id number]
--- NOTE | 2016-09-24 18:17 | RADRPT ---
Vent Rate: 57 bpm RR Interval: 0 msec [place] Interval: 0 msec QRS Duration: 146 msec QT Interval: 510 msec QTC Interval: 496 msec P-R-T [place]: 64 - 37 - 134 degrees Sinus rhythm with complete heart block and Wide QRS rhythm Acute inferior ST elevation myocardial infarction Nonspecific intraventricular block Abnormal ECG Electronically Signed By: Max Pinto [id number]
--- NOTE | 2016-09-24 18:18 | RADRPT ---
Vent Rate: 59 bpm RR Interval: 0 msec [place] Interval: 0 msec QRS Duration: 108 msec QT Interval: 546 msec QTC Interval: 540 msec P-R-T [place]: 63 - -40 - 72 degrees Sinus tachycardia with complete heart block and Junctional rhythm with fusion complexes Left axis deviation Low voltage QRS Inferior infarct , age undetermined Cannot rule out Anterior infarct , age undetermined Prolonged QT Abnormal ECG Electronically Signed By: Max Pinto [id number]
--- NOTE | 2016-09-24 18:18 | RADRPT ---
Vent Rate: 56 bpm RR Interval: 0 msec [place] Interval: 0 msec QRS Duration: 122 msec QT Interval: 572 msec QTC Interval: 551 msec P-R-T [place]: 66 - -37 - 72 degrees Sinus rhythm with complete heart block and Wide QRS rhythm with fusion complexes Left axis deviation Inferior infarct , age undetermined Anterior infarct , age undetermined Abnormal ECG Electronically Signed By: Max Pinto [id number]
--- NOTE | 2016-09-24 18:20 | RADRPT ---
Vent Rate: 73 bpm RR Interval: 0 msec MD Interval: 0 msec QRS Duration: 64 msec QT Interval: 452 msec QTC Interval: 497 msec P-R-T [place]: 0 - 72 - 69 degrees Sinus tachycardia with 2nd degree AV block (Mobitz I) Low voltage QRS Cannot rule out Anterior infarct , age undetermined Inferior injury pattern ACUTE [place] Consider right ventricular involvement in acute inferior infarct Abnormal ECG Electronically Signed By: Max Pinto [id number]
[2016-09-24 20:53] LABS: PROTEIN URINE 74.8 mg/dl (0.0-9.9); PROTEIN/CREAT RATIO 1.21 RATIO
[2016-09-24] MEDS: ATORVASTATIN 80 MG TAB NGT SCH (21:16)
[2016-09-24] MEDS: SOD CHLORIDE 0.9% IV SCH (22:14)
[2016-09-24] MEDS: CALCIUM GLUCONATE IV SCH (22:14)
[2016-09-25] VITALS (43 sets, daily range): BP systolic 89–168; BP diastolic 47–78; PULSE 66–113; RESP 13–18
[2016-09-25] MEDS: ALBUMIN HUMAN 25% 100 ML IV SCH (00:53)
[2016-09-25] MEDS: ACCU-CHEK XX SCH ×10 (01:00→11:10)
[2016-09-25] MEDS: FUROSEMIDE 40 MG INJ IV SCH (02:18)
[2016-09-25] MEDS: PIPER-TAZO 3.375 GM IV (PMX) 100 ML IVPB SCH ×3 (02:18→17:21)
[2016-09-25 06:09] LABS: ADD SCAN DIFF NO
[2016-09-25 06:16] LABS: BASOPHILS % 0.1 % (0.0-2.0); EOSINOPHILS % 0.2 % (0.0-7.0); HEMATOCRIT 26.1 % (37.0-47.0); HEMOGLOBIN 7.9 g/dl (12.0-16.0); LYMPHOCYTES # 1.1 10^3/ul (0.8-2.9); LYMPHOCYTES % 7.1 % (15.0-51.0); MEAN CORPUSCULAR HEMOGLOBIN 26.2 pg (29.0-33.0); MEAN CORPUSCULAR HGB CONC 30.3 g/dl (32.0-37.0); MEAN CORPUSCULAR VOLUME 86.4 fl (82.0-101.0); MEAN PLATELET VOLUME 11.2 fl (7.4-10.4); MONOCYTE # 1.1 10^3/ul (0.3-0.9); MONOCYTES % 7.5 % (0.0-11.0); NEUTROPHIL # 12.4 10^3/ul (1.6-7.5); NEUTROPHILS % 82.6 % (39.0-77.0); NUCLEATED RED BLOOD CELLS # 0.4 10^3/ul (0.0-0.0); NUCLEATED RED BLOOD CELLS% 2.4 /100WBC (0.0-0.0); PLATELET COUNT 182 10^3/UL (140-415); RED BLOOD COUNT 3.02 10^6/ul (4.20-5.40); RED CELL DISTRIBUTION WIDTH 15.4 % (11.5-14.5)
[2016-09-25] MEDS: PANTOPRAZOLE 40 MG INJ IV SCH (06:41)
[2016-09-25 06:46] LABS: ALBUMIN 2.7 g/dl (3.3-4.9)
[2016-09-25 06:48] LABS: CREATININE 5.21 mg/dl (0.44-1.00)
[2016-09-25 06:49] LABS: ALBUMIN/GLOBULIN RATIO 1.17; BILIRUBIN,DIRECT 0.8 mg/dl (0.00-0.20); BILIRUBIN,INDIRECT 0.4 mg/dl (0-1.1); BILIRUBIN,TOTAL 1.2 mg/dl (0.2-1.3); PHOSPHORUS 6.4 mg/dl (2.5-4.9)
[2016-09-25 06:59] LABS: CALCIUM 5.6 mg/dl (8.4-10.2)
[2016-09-25] MEDS: CALCIUM GLUCONATE IV SCH ×2 (08:19→17:21)
[2016-09-25] MEDS: SOD CHLORIDE 0.9% IV SCH (08:19)
[2016-09-25] MEDS ORDERED: SOD CHLORIDE 0.9% 250 ML IV* ONE (08:29)
--- NOTE | 2016-09-25 08:44 | CONS ---
Date/Time of Note Date/Time of Note DATE: 09/25/16 TIME: 08:38 Assessment/Plan Assessment/Plan Chief Complaint/Hosp Course 1. Acute Renal Failure due to ATN , nonoliguric . Renal ultrasound shows echogenic kidneys , suggestive of CKD . Patient responded to albumin /lasix with an increased urine output . 2. ALOC , probably anoxic encephalopathy 3. liver enzyme elevation due to anoxia 4. hypotensive on pressors 5. hypocalcemia/hypoalbuminemia , will check ionized calcium . Calcium gluconate added to IV fluid . 6. GI bleeding , will transfuse blood Overall prognosis for recovery is poor with multiple system failure . Problems: Consultation Date/Type/Reason Admit Date/Time Sep 20, 2016 at 19:21 Initial Consult Date 09/23/16 Type of Consultation: Neurology Referring Provider: ZANDRA ROBISON MD, [facility] 24 HR Interval Summary Free Text/Dictation she is in the ICU intubated on a ventilator . unresponsive . Subjective hx not possible: pt non-verbal Exam/Review of Systems Vital Signs Vitals Vital Signs Date Time Temp Pulse Resp B/P Pulse Ox O2 Delivery O2 Flow Rate FiO2 09/25/16 07:43 71 16 96 30 09/25/16 06:30 106/54 Mechanical Ventilator 09/25/16 04:00 95.8 Intake and Output 09/24/16 09/24/16 09/25/16 15:00 23:00 07:00 Intake Total 979.54 ml 663.5 ml 811.0 ml Output Total 264 ml 565 ml 258 ml Balance 715.54 ml 98.5 ml 553.0 ml Exam Constitutional: non-verbal Respiratory: crackles/rales Cardiovascular: regular rate and rhythm Gastrointestinal: soft Extremities: edema Results Result Diagram: 09/25/16 0500 09/25/16 0500 Results 24 hrs Laboratory Tests Test 09/24/16 09:42 09/24/16 10:08 09/24/16 12:09 09/24/16 13:15 Ionized Calcium (Measured) 0.8 L Bedside Glucose 164 189 Urine Protein/Creatinine Ratio 1.21 Urine Random Creatinine 61.77 Urine Total Protein 74.8 H Test 09/24/16 13:37 09/24/16 15:51 09/24/16 17:17 09/24/16 19:33 Bedside Glucose 181 178 204 183 Test 09/24/16 21:28 09/24/16 23:40 09/25/16 01:30 09/25/16 03:26 Bedside Glucose 181 178 166 173 Test 09/25/16 05:00 09/25/16 05:36 09/25/16 08:02 Alanine Aminotransferase (ALT/SGPT) 2421 H Albumin 2.7 L Albumin/Globulin Ratio 1.17 Alkaline Phosphatase 160 H Anion Gap 24 H Aspartate Amino Transf (AST/SGOT) Basophils # 0.0 Basophils % 0.1 Blood Urea Nitrogen 75 H Calcium Level 5.6 *L Carbon Dioxide Level 17 L Chloride Level 107 Creatinine 5.21 H Direct Bilirubin 0.80 #H Eosinophils # 0.0 Eosinophils % 0.2 Globulin 2.30 Glucose Level 158 Hematocrit 26.1 #L Hemoglobin 7.9 #L Indirect Bilirubin 0.4 Lymphocytes # 1.1 Lymphocytes % 7.1 L Magnesium Level 2.0 Mean Corpuscular Hemoglobin 26.2 L Mean Corpuscular Hemoglobin Concent 30.3 L Mean Corpuscular Volume 86.4 Mean Platelet Volume 11.2 H Monocytes # 1.1 H Monocytes % 7.5 Neutrophils # 12.4 H Neutrophils % 82.6 H Nucleated Red Blood Cells # 0.4 H Nucleated Red Blood Cells % 2.4 H Phosphorus Level 6.4 H Platelet Count 182 # Potassium Level 4.0 Red Blood Count 3.02 #L Red Cell Distribution Width 15.4 H Sodium Level 144 Total Bilirubin 1.2 Total Protein 5.0 L White Blood Count 15.0 #H Bedside Glucose 177 180 Medications Medications Current Medications Ticagrelor (Brilinta) 90 mg BID PO Last administered on 09/24/16 21:16; Admin Dose 90 MG; Start 09/21/16 at 09:00 Insulin Aspart (Novolog Insulin Pen) NOVOLOG *MILD* ALGORI... Q6 SC Last administered on 09/21/16 04:20; Admin Dose 4 UNIT; Start 09/21/16 at 00:00; Status Future Hold Miscellaneous Information 1 ea NOTE XX ; Start 09/20/16 at 22:00 Glucose (Glutose) 15 gm Q15M PRN PO DECREASED GLUCOSE; Start 09/20/16 at 22:00 Glucose (Glutose) 22.5 gm Q15M PRN PO DECREASED GLUCOSE; Start 09/20/16 at 22: 00 Dextrose (D50w Syringe) 25 ml Q15M PRN IV DECREASED GLUCOSE; Start 09/20/16 at 22:00 Dextrose (D50w Syringe) 50 ml Q15M PRN IV DECREASED GLUCOSE; Start 09/20/16 at 22:00 Glucagon (Glucagen) 1 mg Q15M PRN IM DECREASED GLUCOSE; Start 09/20/16 at 22:00 Glucose 15 gm 15 gm Q15M PRN BUCCAL DECREASED GLUCOSE; Start 09/20/16 at 22:00 Fentanyl 100 ml @ 2.5 mls/hr TITRATE IV ; Start 09/20/16 at 23:30 Propofol 100 ml @ 4.5 mls/hr Q12H IV Last administered on 09/22/16 03:41; Admin Dose 2.7 MLS/HR; Start 09/20/16 at 23:30 Dopamine HCl/ Dextrose 250 ml @ 11.25 mls/ hr TITRATE IV Last administered on 09/21/16 16:32; Admin Dose 33.75 MLS/HR; Start 09/21/16 at 00:30 Norepinephrine/ Dextrose (Levophed/D5W) 500 ml @ 1.87 mls/hr TITRATE IV Last administered on 09/23/16 21:45; Admin Dose 30 MLS/HR; Start 09/21/16 at 07:00 Acetaminophen (Tylenol Liquid) 650 mg Q4H PRN NGT PAIN AND OR ELEVATED TEMP Last administered on 09/22/16 05:41; Admin Dose 650 MG; Start 09/21/16 at 02:00 Eye Lubricant (Artificial Tears Oph) 2 drop QID BOTH EYES Last administered on 09/24/16 21:16; Admin Dose 2 DROP; Start 09/21/16 at 09:00 Diagnostic Test (Pha) (Accucheck) 1 ea Q1H XX Last administered on 09/25/16 08 :05; Admin Dose 1 EA; Start 09/21/16 at 08:00 Dextrose (D50w Syringe) 25 ml Q15M PRN IV Till BS 80 mg/dL or above x2; Start 09/21/16 at 08:00 Dextrose 50 ml 50 ml Q15M PRN IV Till BS 80 mg/dL or above x2; Start 09/21/16 at 08:00 Piperacillin Sod/ Tazobactam Sod (Zosyn 3.375gm/ 100 ml (Pmx)) 100 ml @ 25 mls/ hr TID@ IVPB Last administered on 09/25/16 02:18; Admin Dose 25 MLS/HR ; Start 09/22/16 at 02:00 Aspirin (Aspirin) 81 mg DAILY NGT Last administered on 09/24/16 08:48; Admin Dose 81 MG; Start 09/22/16 at 09:00 Atorvastatin Calcium (Lipitor) 80 mg HS NGT Last administered on 09/24/16 21: 16; Admin Dose 80 MG; Start 09/22/16 at 21:00 Pantoprazole 40 mg 40 mg DAILY@06 IV Last administered on 09/25/16 06:41; Admin Dose 40 MG; Start 09/23/16 at 06:00 Phenylephrine HCl 40 mg/Dextrose 500 ml @ 75 mls/hr TITRATE PRN IV bp SUPPORT ; Start 09/22/16 at 20:00 Calcium Gluconate/ Sodium Chloride (Ca Gluc/NS) 1,010 ml @ 100 mls/hr Q10H6M IV Last administered on 09/25/16 08:19; Admin Dose 100 MLS/HR; Start 09/24/16 at 21:30 DAMIR MARTINEZ MD Sep 25, 2016 08:44
[2016-09-25] MEDS ORDERED: PHYTONADIONE 10 MG/ML INJ SC ONE (09:00)
[2016-09-25] MEDS ORDERED: INSULIN ASPART [NOVOLOG] 3 ML PEN SC SCH (09:00)
--- NOTE | 2016-09-25 09:38 | CONS ---
Date/Time of Note Date/Time of Note DATE: 09/25/16 TIME: 09:36 Consult Date/Type/Reason Admit Date/Time Sep 20, 2016 at 19:21 Initial Consult Date 09/23/16 Type of Consultation: pulmonary Ordering Provider: ZANDRA ROBISON MD, [facility] Subjective Patient remains unresponsive on mechanical ventilation Still has evidence of ongoing GI bleed with coffee-ground output from nasogastric tube Pupils are sluggish No gag reflex Objective Vital Signs Date Time Temp Pulse Resp B/P Pulse Ox O2 Delivery O2 Flow Rate FiO2 09/25/16 08:00 74 09/25/16 07:43 16 96 30 09/25/16 06:30 106/54 Mechanical Ventilator 09/25/16 04:00 95.8 Intake and Output 09/24/16 09/24/16 09/25/16 15:00 23:00 07:00 Intake Total 979.54 ml 663.5 ml 811.0 ml Output Total 264 ml 565 ml 258 ml Balance 715.54 ml 98.5 ml 553.0 ml PHYSICAL EXAMINATION: VITAL SIGNS: Temperature 98, pulse is 100, blood pressure 93/53, O2 saturation 96%, FIO2 of 40%. HEENT: Orally intubated. Dry mucous membranes. Pupils are sluggish. CARDIAC: S1, S2, no added sounds or murmurs. CHEST: Diminished air entry bilaterally. ABDOMEN: Distended, soft, nontender. EXTREMITIES: No cyanosis, clubbing, 2+ edema. NEUROLOGIC: She has signs of mottling of her skin distally. Results/Medications Result Diagram: 09/25/16 0500 09/25/16 0500 Results 24 hrs Laboratory Tests Test 09/24/16 09:42 09/24/16 10:08 09/24/16 12:09 09/24/16 13:15 Ionized Calcium (Measured) 0.8 L Bedside Glucose 164 189 Urine Protein/Creatinine Ratio 1.21 Urine Random Creatinine 61.77 Urine Total Protein 74.8 H Test 09/24/16 13:37 09/24/16 15:51 09/24/16 17:17 09/24/16 19:33 Bedside Glucose 181 178 204 183 Test 09/24/16 21:28 09/24/16 23:40 09/25/16 01:30 09/25/16 03:26 Bedside Glucose 181 178 166 173 Test 09/25/16 05:00 09/25/16 05:36 09/25/16 08:02 Alanine Aminotransferase (ALT/SGPT) 2421 H Albumin 2.7 L Albumin/Globulin Ratio 1.17 Alkaline Phosphatase 160 H Anion Gap 24 H Aspartate Amino Transf (AST/SGOT) Basophils # 0.0 Basophils % 0.1 Blood Urea Nitrogen 75 H Calcium Level 5.6 *L Carbon Dioxide Level 17 L Chloride Level 107 Creatinine 5.21 H Direct Bilirubin 0.80 #H Eosinophils # 0.0 Eosinophils % 0.2 Globulin 2.30 Glucose Level 158 Hematocrit 26.1 #L Hemoglobin 7.9 #L Indirect Bilirubin 0.4 Lymphocytes # 1.1 Lymphocytes % 7.1 L Magnesium Level 2.0 Mean Corpuscular Hemoglobin 26.2 L Mean Corpuscular Hemoglobin Concent 30.3 L Mean Corpuscular Volume 86.4 Mean Platelet Volume 11.2 H Monocytes # 1.1 H Monocytes % 7.5 Neutrophils # 12.4 H Neutrophils % 82.6 H Nucleated Red Blood Cells # 0.4 H Nucleated Red Blood Cells % 2.4 H Phosphorus Level 6.4 H Platelet Count 182 # Potassium Level 4.0 Red Blood Count 3.02 #L Red Cell Distribution Width 15.4 H Sodium Level 144 Total Bilirubin 1.2 Total Protein 5.0 L White Blood Count 15.0 #H Bedside Glucose 177 180 Medications Current Medications Ticagrelor (Brilinta) 90 mg BID PO Last administered on 09/24/16t 21:16; Admin Dose 90 MG; Start 09/21/16 at 09:00; Status Future Hold Miscellaneous Information 1 ea NOTE XX ; Start 09/20/16 at 22:00 Glucose (Glutose) 15 gm Q15M PRN PO DECREASED GLUCOSE; Start 09/20/16 at 22:00 Glucose (Glutose) 22.5 gm Q15M PRN PO DECREASED GLUCOSE; Start 09/20/16 at 22: 00 Dextrose (D50w Syringe) 25 ml Q15M PRN IV DECREASED GLUCOSE; Start 09/20/16 at 22:00 Dextrose (D50w Syringe) 50 ml Q15M PRN IV DECREASED GLUCOSE; Start 09/20/16 at 22:00 Glucagon (Glucagen) 1 mg Q15M PRN IM DECREASED GLUCOSE; Start 09/20/16 at 22:00 Glucose 15 gm 15 gm Q15M PRN BUCCAL DECREASED GLUCOSE; Start 09/20/16 at 22:00 Fentanyl 100 ml @ 2.5 mls/hr TITRATE IV ; Start 09/20/16 at 23:30 Propofol 100 ml @ 4.5 mls/hr Q12H IV Last administered on 09/22/16 03:41; Admin Dose 2.7 MLS/HR; Start 09/20/16 at 23:30 Dopamine HCl/ Dextrose 250 ml @ 11.25 mls/ hr TITRATE IV Last administered on 09/21/16 16:32; Admin Dose 33.75 MLS/HR; Start 09/21/16 at 00:30 Norepinephrine/ Dextrose (Levophed/D5W) 500 ml @ 1.87 mls/hr TITRATE IV Last administered on 09/23/16 21:45; Admin Dose 30 MLS/HR; Start 09/21/16 at 07:00 Acetaminophen (Tylenol Liquid) 650 mg Q4H PRN NGT PAIN AND OR ELEVATED TEMP Last administered on 09/22/16 05:41; Admin Dose 650 MG; Start 09/21/16 at 02:00 Eye Lubricant (Artificial Tears Oph) 2 drop QID BOTH EYES Last administered on 09/24/16 21:16; Admin Dose 2 DROP; Start 09/21/16 at 09:00 Dextrose (D50w Syringe) 25 ml Q15M PRN IV Till BS 80 mg/dL or above x2; Start 09/21/16 at 08:00 Dextrose 50 ml 50 ml Q15M PRN IV Till BS 80 mg/dL or above x2; Start 09/21/16 at 08:00 Piperacillin Sod/ Tazobactam Sod (Zosyn 3.375gm/ 100 ml (Pmx)) 100 ml @ 25 mls/ hr TID@,,18 IVPB Last administered on 09/25/16 02:18; Admin Dose 25 MLS/HR ; Start 09/22/16 at 02:00 Atorvastatin Calcium (Lipitor) 80 mg HS NGT Last administered on 09/24/16 21: 16; Admin Dose 80 MG; Start 09/22/16 at 21:00 Pantoprazole 40 mg 40 mg DAILY@06 IV Last administered on 09/25/16 06:41; Admin Dose 40 MG; Start 09/23/16 at 06:00 Phenylephrine HCl 40 mg/Dextrose 500 ml @ 75 mls/hr TITRATE PRN IV bp SUPPORT ; Start 09/22/16 at 20:00 Calcium Gluconate/ Sodium Chloride (Ca Gluc/NS) 1,010 ml @ 60 mls/hr [id number] IV Last administered on 09/25/16t 08:19; Admin Dose 100 MLS/HR; Start 09/24/16 at 21:30 Insulin Aspart (Novolog Insulin Pen) NOVOLOG *MODERATE* ALGORI... Q4 SC ; Start 09/25/16 at 09:00 Insulin Glargine (Lantus) 20 unit DAILY@08 SC ; Start 09/26/16 at 08:00 Assessment/Plan Chief Complaint/Hosp Course IMPRESSION AND PLAN: 1. Cardiac arrest. ST elevation IA 2. Probable anoxic brain injury. 3. Acute renal failure, probably acute tubular necrosis injury. 4. Shock liver. 5. Possible aspiration pneumonia with septic shock. The patient to: 1. Continue mechanical ventilation. 2. Continue renal recommendations. 3. Continue vasopressor support. 4. Broad-spectrum antibiotic coverage. 5. Glycemic management. 6. Consider holding presented given ongoing GI bleed 7. Neurology recommendations Overall prognosis is very poor and explained to the family that patient likely has an anoxic brain injury for which she will not recover. She has a nephrostomy tube which is clear about her wishes which do not include prolonged life support. Palliative care consult would be appropriate at this point. Problems: ZANDRA ROBISON MD, [facility] Sep 25, 2016 09:38
[2016-09-25] MEDS: ARTIFICIAL TEARS 15 ML OPH BOTH EYES SCH ×4 (09:50→20:29)
[2016-09-25] MEDS: PROPOFOL 100 ML IV SCH ×2 (11:22→23:30)
[2016-09-25] MEDS ORDERED: ALTEPLASE (CATHFLO) 2 MG INJ CATHETER PRN (11:30)
[2016-09-25] MEDS: INSULIN ASPART [NOVOLOG] 3 ML PEN SC SCH ×3 (12:27→20:37)
[2016-09-25] MEDS: INSULIN GLARGINE [LANtus] 3 ML PEN SC SCH (12:29)
--- NOTE | 2016-09-25 12:42 | CONS ---
Date/Time of Note Date/Time of Note DATE: 09/25/16 TIME: 12:39 Consult Date/Type/Reason Admit Date/Time Sep 20, 2016 at 19:21 Initial Consult Date 09/23/16 Type of Consultation: neurology Reason for Consultation evaluation for anoxic injury Ordering Provider: ZANDRA ROBISON MD, [facility] Subjective unresponsive, no improvement in exam receiving transfusion for GI bleed Objective Vital Signs Date Time Temp Pulse Resp B/P Pulse Ox O2 Delivery O2 Flow Rate FiO2 09/25/16 11:00 101 16 134/61 95 Mechanical Ventilator 09/25/16 09:48 30 09/25/16 08:00 96.1 Intake and Output 09/24/16 09/24/16 09/25/16 15:00 23:00 07:00 Intake Total 979.54 ml 663.5 ml 821.0 ml Output Total 264 ml 565 ml 258 ml Balance 715.54 ml 98.5 ml 563.0 ml Exam unresponsive intubated off sedation no response to verbal stimuli CN: FLEX sluggish, absent corneals absent gag absent oculocephalics Motor: no withdrawal Results/Medications Result Diagram: 09/25/16 0500 09/25/16 0500 Results 24 hrs Laboratory Tests Test 09/24/16 13:15 09/24/16 13:37 09/24/16 15:51 09/24/16 17:17 Urine Random Creatinine 61.77 Urine Protein/Creatinine Ratio 1.21 Urine Total Protein 74.8 H Bedside Glucose 181 178 204 Test 09/24/16 19:33 09/24/16 21:28 09/24/16 23:40 09/25/16 01:30 Bedside Glucose 183 181 178 166 Test 09/25/16 03:26 09/25/16 05:00 09/25/16 05:36 09/25/16 08:02 Bedside Glucose 173 177 180 White Blood Count 15.0 #H Red Blood Count 3.02 #L Hemoglobin 7.9 #L Hematocrit 26.1 #L Mean Corpuscular Volume 86.4 Mean Corpuscular Hemoglobin 26.2 L Mean Corpuscular Hemoglobin Concent 30.3 L Red Cell Distribution Width 15.4 H Platelet Count 182 # Mean Platelet Volume 11.2 H Neutrophils % 82.6 H Lymphocytes % 7.1 L Monocytes % 7.5 Eosinophils % 0.2 Basophils % 0.1 Nucleated Red Blood Cells % 2.4 H Neutrophils # 12.4 H Lymphocytes # 1.1 Monocytes # 1.1 H Eosinophils # 0.0 Basophils # 0.0 Nucleated Red Blood Cells # 0.4 H Sodium Level 144 Potassium Level 4.0 Chloride Level 107 Carbon Dioxide Level 17 L Anion Gap 24 H Blood Urea Nitrogen 75 H Creatinine 5.21 H Glucose Level 158 Calcium Level 5.6 *L Phosphorus Level 6.4 H Magnesium Level 2.0 Total Bilirubin 1.2 Direct Bilirubin 0.80 #H Indirect Bilirubin 0.4 Aspartate Amino Transf (AST/SGOT) Alanine Aminotransferase (ALT/SGPT) 2421 H Alkaline Phosphatase 160 H Total Protein 5.0 L Albumin 2.7 L Globulin 2.30 Albumin/Globulin Ratio 1.17 Medications Current Medications Ticagrelor (Brilinta) 90 mg BID PO Last administered on 09/24/16 21:16; Admin Dose 90 MG; Start 09/21/16 at 09:00; Status Future Hold Miscellaneous Information 1 ea NOTE XX ; Start 09/20/16 at 22:00 Glucose (Glutose) 15 gm Q15M PRN PO DECREASED GLUCOSE; Start 09/20/16 at 22:00 Glucose (Glutose) 22.5 gm Q15M PRN PO DECREASED GLUCOSE; Start 09/20/16 at 22: 00 Dextrose (D50w Syringe) 25 ml Q15M PRN IV DECREASED GLUCOSE; Start 09/20/16 at 22:00 Dextrose (D50w Syringe) 50 ml Q15M PRN IV DECREASED GLUCOSE; Start 09/20/16 at 22:00 Glucagon (Glucagen) 1 mg Q15M PRN IM DECREASED GLUCOSE; Start 09/20/16 at 22:00 Glucose 15 gm 15 gm Q15M PRN BUCCAL DECREASED GLUCOSE; Start 09/20/16 at 22:00 Fentanyl 100 ml @ 2.5 mls/hr TITRATE IV ; Start 09/20/16 at 23:30 Propofol 100 ml @ 4.5 mls/hr Q12H IV Last administered on 09/22/16 03:41; Admin Dose 2.7 MLS/HR; Start 09/20/16 at 23:30 Dopamine HCl/ Dextrose 250 ml @ 11.25 mls/ hr TITRATE IV Last administered on 09/21/16 16:32; Admin Dose 33.75 MLS/HR; Start 09/21/16 at 00:30 Norepinephrine/ Dextrose (Levophed/D5W) 500 ml @ 1.87 mls/hr TITRATE IV Last administered on 09/23/16 21:45; Admin Dose 30 MLS/HR; Start 09/21/16 at 07:00 Acetaminophen (Tylenol Liquid) 650 mg Q4H PRN NGT PAIN AND OR ELEVATED TEMP Last administered on 09/22/16 05:41; Admin Dose 650 MG; Start 09/21/16 at 02:00 Eye Lubricant (Artificial Tears Oph) 2 drop QID BOTH EYES Last administered on 09/25/16 12:21; Admin Dose 2 DROP; Start 09/21/16 at 09:00 Dextrose (D50w Syringe) 25 ml Q15M PRN IV Till BS 80 mg/dL or above x2; Start 09/21/16 at 08:00 Dextrose 50 ml 50 ml Q15M PRN IV Till BS 80 mg/dL or above x2; Start 09/21/16 at 08:00 Piperacillin Sod/ Tazobactam Sod (Zosyn 3.375gm/ 100 ml (Pmx)) 100 ml @ 25 mls/ hr TID@02,10,18 IVPB Last administered on 09/25/16 10:07; Admin Dose 25 MLS/HR ; Start 09/22/16 at 02:00 Atorvastatin Calcium (Lipitor) 80 mg HS NGT Last administered on 09/24/16 21: 16; Admin Dose 80 MG; Start 09/22/16 at 21:00 Pantoprazole 40 mg 40 mg DAILY@06 IV Last administered on 09/25/16 06:41; Admin Dose 40 MG; Start 09/23/16 at 06:00 Phenylephrine HCl 40 mg/Dextrose 500 ml @ 75 mls/hr TITRATE PRN IV bp SUPPORT ; Start 09/22/16 at 20:00 Calcium Gluconate/ Sodium Chloride (Ca Gluc/NS) 1,010 ml @ 60 mls/hr [id number] IV Last administered on 09/25/16 08:19; Admin Dose 100 MLS/HR; Start 09/24/16 at 21:30 Insulin Aspart (Novolog Insulin Pen) NOVOLOG *MILD* ALGORI... Q4 SC Last administered on 09/25/16 12:27; Admin Dose 1 UNIT; Start 09/25/16 at 13:00 Insulin Glargine (Lantus) 20 unit DAILY@08 SC Last administered on 09/25/16 12 :29; Admin Dose 20 UNIT; Start 09/25/16 at 10:30 Assessment/Plan Chief Complaint/Hosp Course 71 year old female with history of diabetes found unresponsive by with profound bradycardia, STEMI requiring RCA stent, hypothermia protocol with no improvement in neurologic exam. CTH showed no evidence of hypoxic injury. EEG showed bihemispheric slowing consistent with encephalopathy. no seizures however brain activity is present. -she is currently being evaluated for JONAH, receiving transfusion for GI bleed would continue current management and i will continue to examine her over the next few days to evaluate her neurologic status -family is reviewing her advanced directives and making decisions regarding further goals of care in the next few days Problems: CHINYERE GARCIA MD Sep 25, 2016 12:42
--- NOTE | 2016-09-25 14:33 | CONS ---
DATE OF ADMISSION: 09/20/2016 DATE OF CONSULTATION: 09/25/2016 PALLIATIVE CARE CONSULTATION REFERRING PHYSICIAN: Dr. Bette Guerrero. HISTORY OF PRESENT ILLNESS: This is a 71-year-old female who was brought to the emergency room on 0 09/20/2016, found down by her . The patient underwent cardiopulmonary resuscitation and was t ransferred to the emergency room at [facility]. From there, the patient was diagn osed with a STEMI and was taken to a cardiac dental laboratory technician apprentice and underwent PCI, requiring RCA stent and a p acemaker was placed at that time for profound bradycardia. The patient was transferred to the [facility] care unit, underwent hypothermia protocol. At the time I reexamined her she is off hypothermia protocol. I was asked to see the patient and speak to family members concerning prognosis and disc ussed the patient's durable power of retail sales representative with patient's . MEDICATIONS: Please refer to reconciliation sheet. ALLERGIES: SOY. MAJOR MEDICAL PROBLEMS IN THE PAST: We have an incomplete database, but what is available: The pat ient is obese. She has a history of hyperlipidemia, hypertension, and type 2 diabetes. SOCIAL HISTORY: According to the patient's medical record, she does not smoke, she does not drink, she is retired. FAMILY HISTORY: Unavailable. REVIEW OF SYSTEMS: Cannot be obtained. PHYSICAL EXAMINATION: GENERAL: Shows an intubated, somewhat obese female. VITAL SIGNS: Blood pressure 134/61, pulse 101 and regular, respirations of 16, temperature 96.1 deg parker, 95% saturation on 30% FIO2. HEENT: She is normocephalic and atraumatic. Anicteric, acyanotic. CHEST: Shows bilateral distant breath sounds throughout both lung [place]. COR: S1, S2, without S3, S4, murmur, gallop, rub. Normal rhythm. Normal rate. ABDOMEN: No bowel sounds can be appreciated. Abdomen is somewhat distended in all 4 quadrants. NEUROLOGIC: She has bilateral very sluggish pupillary light reflex. She has no doll's eyes. Negat pretty on gag also. EXTREMITIES: Without clubbing, cyanosis or edema. LABORATORY TESTS: Have been reviewed. White blood cell count today is 15.0, hemoglobin of 7.9, hem atocrit 26.1. Chemistry: Serum sodium 144, potassium 4.0, chloride 107, bicarbonate of 17, BUN of 75, creatinine 5.21. ASSESSMENT AND PLAN: I have had an extensive conversation with the patient's . His 2 childr en are en route and we have scheduled another meeting tomorrow morning when they arrive. The tammy schwartz's 2 friends are at the bedside with him also. We examined a durable power of retail sales representative for health care and it clearly says that the patient did not want to live for an extended period of time if she was in a comatose or persistent vegetative condition. The DPOA is executed properly and is execute d 01/29/2007 and notarized. It names James Danielle, her , as first appointment. Reviewed h er current clinical condition and also her neurological examination. The family members were spoken with about her clinical condition and also by the neuro consultation today. I asked the terry at he recalls from that meeting and clearly he recalls that she was told that the prognosis was poor . I believe he clearly understands that. I did reinforce that this would in all likelihood be a ve ry poor outcome. Since family members are coming into town, I recommended that we sit down and spea k again tomorrow morning. It would give him time to process, and tomorrow morning to have a sit nancy n meeting with both son and daughter, which may take some the burden off of him. I did speak to him about the code status. He is very mandaeism man and he felt he was just too traumatized at this ti me to make a decision to change her code to DO NOT RESUSCITATE. In the event that if she does have a precipitous change her clinical course within 24 hours prior to speaking to other family members, I will speak to him once again. We will continue with her current code status per family's request at this point. My impressions are that he will change that tomorrow morning to a DO NOT RESUSCITATE, but I emphasiz e that this gentleman is mandaeism and he has erin ____. I think he will need to have support, but would also need to have information given to him very straightforward so he can understand that her DPOA should be clearly respected. Dictated By: DYLAN GIBBONS MD, LP/JERROD Conf#: [id number] DID#: [id number]
[2016-09-25] MEDS: DEXTROSE IV SCH (17:21)
[2016-09-25] MEDS: BUMETANIDE 25 MG in DEXTROSE 5% 150 ML IV SCH (17:21)
[2016-09-25] MEDS: NACL IV SCH (17:21)
--- NOTE | 2016-09-25 17:24 | CONS ---
DATE OF ADMISSION: 09/20/2016 DATE OF CONSULTATION: 09/25/2016 TYPE OF CONSULTATION: Gastroenterology. Thank you for having me see this patient. HISTORY OF PRESENT ILLNESS: As you know Mrs. Danielle is a 71-year-old woman who I am asked to see regarding gastrointestinal bleeding. Apparently she was currently admitted to the hospital after an arrest. The patient was intubated and had an orogastric tube placed. Some red material was noted coming from the orogastric tube. Apparently 50 mL was described by the nurse. During the course of her hospitalization over the past 3 days her hematocrit has decreased from 37 to 26. She has recei prasad a unit of packed cells after her hematocrit of 26. She is unable to give any historical informa tion because she is intubated. History is obtained from review of the chart and discussions with claudette milton nurse. Nonetheless, I have seen the patient previously because of colonic polyps. PAST MEDICAL HISTORY, HOSPITALIZATIONS AND OPERATIONS: Tubal ligation, eye surgery. ADULT ILLNESSES: Significant for arthritis, diabetes, hyperlipidemia, hypertension, osteoporosis. CHILDHOOD: Denies rheumatic fever or scarlet fever. ALLERGIES: NO KNOWN DRUG ALLERGIES. INJURIES: None. MEDICATIONS: Currently include: 1. Calcium gluconate. 2. Bumetanide insulin. 3. Protonix. 4. Lipitor. 5. Phenylephrine. 6. Piperacillin. 7. Tylenol. 8. Dopamine. 9. Fentanyl. 10. Propofol. SOCIAL HISTORY: The patient was never a smoker and does not drink alcohol. 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 FAMILY HISTORY: Noncontributory except a brother and numerous other family members with colon cance r. REVIEW OF SYSTEMS: Unobtainable. PHYSICAL EXAMINATION: GENERAL: Shows in general, the patient to be well-developed, well-nourished female, intubated in be d, unresponsive. VITAL SIGNS: Temperature 98.4, pulse 113, blood pressure 133/67, respirations 18. SKIN: Clear. HEENT: Negative. LUNGS: Clear to percussion and auscultation. CARDIAC: No murmurs, rubs or gallops. ABDOMEN: Soft, nontender, nasogastric drainage bilious. LABORATORY DATA: Remarkable for white count 15, hemoglobin 7.9, hematocrit 26, platelets 182. PT/I NR 2.15, PTT 35. Chemistries: Creatinine 5.2, BUN 75, ALT 2421, alkaline phosphatase 160. Clearly the patient has had gastrointestinal bleeding. It has likely been exacerbated by her antico agulation. I also note her dramatically abnormal liver tests which are likely on the basis of shock liver from her cardiac event. I note, Dr. Barrett's discussion regarding her code status and acco rding to the nurse apparently she may very well be someone whose family wishes to withdraw support. Nonetheless, at this point, I would suggest continuing Protonix. Given her overall status, would n ot proceed with endoscopy currently. PLAN: We will check stools for occult blood. Would also avoid anticoagulation. Thank you for having me see this patient in consultation. Dictated By: TOMASA CHAVEZ/JERROD Conf#: [id number] DID#: [id number]
[2016-09-25] MEDS: ATORVASTATIN 80 MG TAB NGT SCH (20:28)
[2016-09-26] VITALS (35 sets, daily range): BP systolic 106–159; BP diastolic 53–72; PULSE 81–110; RESP 16–17
[2016-09-26] MEDS: INSULIN ASPART [NOVOLOG] 3 ML PEN SC SCH ×6 (00:52→20:47)
[2016-09-26] MEDS: PIPER-TAZO 3.375 GM IV (PMX) 100 ML IVPB SCH ×2 (02:15→10:53)
[2016-09-26 04:38] LABS: ADD SCAN DIFF NO
[2016-09-26 04:43] LABS: ABNORMAL IP MESSAGE 1; BASOPHILS % 0.1 % (0.0-2.0); EOSINOPHILS % 0.3 % (0.0-7.0); HEMATOCRIT 31.6 % (37.0-47.0); HEMOGLOBIN 10.2 g/dl (12.0-16.0); LYMPHOCYTES # 1.1 10^3/ul (0.8-2.9); LYMPHOCYTES % 6.7 % (15.0-51.0); MEAN CORPUSCULAR HEMOGLOBIN 27.7 pg (29.0-33.0); MEAN CORPUSCULAR HGB CONC 32.3 g/dl (32.0-37.0); MEAN CORPUSCULAR VOLUME 85.9 fl (82.0-101.0); MEAN PLATELET VOLUME 10.7 fl (7.4-10.4); MONOCYTE # 1.6 10^3/ul (0.3-0.9); MONOCYTES % 9.9 % (0.0-11.0); NEUTROPHIL # 12.2 10^3/ul (1.6-7.5); NEUTROPHILS % 77.3 % (39.0-77.0); NUCLEATED RED BLOOD CELLS # 0.6 10^3/ul (0.0-0.0); NUCLEATED RED BLOOD CELLS% 3.9 /100WBC (0.0-0.0); PLATELET COUNT 216 10^3/UL (140-415); RED BLOOD COUNT 3.68 10^6/ul (4.20-5.40); RED CELL DISTRIBUTION WIDTH 15.9 % (11.5-14.5); WHITE BLOOD COUNT 15.7 10^3/ul (4.8-10.8)
[2016-09-26 04:55] LABS: ALBUMIN 2.7 g/dl (3.3-4.9)
[2016-09-26 04:57] LABS: BILIRUBIN,DIRECT 1.1 mg/dl (0.00-0.20); BILIRUBIN,INDIRECT 0.4 mg/dl (0-1.1); BILIRUBIN,TOTAL 1.5 mg/dl (0.2-1.3); CREATININE 5.74 mg/dl (0.44-1.00)
[2016-09-26 04:58] LABS: TOTAL PROTEIN 5.4 g/dl (6.1-8.1)
[2016-09-26 04:59] LABS: INR 1.9; MAGNESIUM 2.1 mg/dl (1.7-2.5); PT RATIO 1.7
[2016-09-26 05:00] LABS: CALCIUM 5.7 mg/dl (8.4-10.2)
[2016-09-26] MEDS: PANTOPRAZOLE 40 MG INJ IV SCH ×2 (05:13→08:53)
[2016-09-26] MEDS ORDERED: INSULIN GLARGINE [LANtus] 3 ML PEN SC SCH (08:00)
[2016-09-26 08:05] LABS: AADO2 Arterial 102.9 mmHg (7.0-24.0); Arterial Base Excess -0.1 mmol/L (-3.0-3); Arterial COHb 0.3 % (0.0-3.0); Arterial Fraction of Oxyhgb 92.7 % (93.0-99.0); Arterial HCO3 23.7 mmol/L (22.0-26.0); Arterial MetHb 0.4 % (0.0-1.5); Arterial Total Hemglobin 9.5 g/dl (12.0-18.0); Blood Gas Low PEEP Setting 0 cmH2O; MODE VENT - AC
--- NOTE | 2016-09-26 08:08 | RADRPT ---
PROCEDURE: Chest x-ray CLINICAL INDICATION: Shortness of breath TECHNIQUE: Chest single view COMPARISON: 09/24/2016 FINDINGS: Endotracheal tube and nasogastric tube remain in good position. There is stable mild cardiomegaly. Suspect mild interstitial CHF. There is enlarging right pleural effusion with associated right low er lung consolidation. IMPRESSION: 1. Endotracheal tube and nasogastric tube remain in good position. 2. Prominence of interstitial markings likely reflects mild interstitial edema. 3. Enlarging right pleural effusion with increasing right lower lung consolidation RPTAT: HH .Rafy Carcamo MD, Date Time Electronically viewed and signed by .Rafy Carcamo MD, on 09/26/2016 08:08 .W/
--- NOTE | 2016-09-26 08:39 | CONS ---
Date/Time of Note Date/Time of Note DATE: 09/26/16 TIME: 08:31 Assessment/Plan Assessment/Plan Chief Complaint/Hosp Course 1. Acute Renal Failure due to ATN , nonoliguric . Renal ultrasound shows echogenic kidneys , suggestive of CKD . Patient responded to Bumex drip and urine output has increased . 2. 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 3. liver enzyme elevation due to anoxia 4. hypotensive on pressors 5. hypocalcemia/hypoalbuminemia , will check ionized calcium . Calcium gluconate added to IV fluid . 6. GI bleeding , will transfuse blood , bleeding seems to have stopped 7. peripheral vascular disease , with one blue L toe . Overall prognosis for recovery is poor with multiple system failure . Problems: Consultation Date/Type/Reason Admit Date/Time Sep 20, 2016 at 19:21 Initial Consult Date 09/23/16 Type of Consultation: neurology Referring Provider: ZANDRA ROBISON MD, [facility] Interval Summary Free Text/Dictation she is in the ICU , intubated , on a ventilator and unresponsive . Subjective hx not possible: pt non-verbal Exam/Review of Systems Vital Signs Vitals Vital Signs Date Time Temp Pulse Resp B/P Pulse Ox O2 Delivery O2 Flow Rate FiO2 09/26/16 08:00 92 16 100 30 09/26/16 07:00 136/63 Mechanical Ventilator 09/26/16 04:00 98.0 Intake and Output 09/25/16 09/25/16 09/26/16 15:00 23:00 07:00 Intake Total 970 ml 580 ml 660 ml Output Total 145 ml 387 ml 857 ml Balance 825 ml 193 ml -197 ml Exam Constitutional: non-verbal Respiratory: wheezing Cardiovascular: regular rate and rhythm Gastrointestinal: soft Extremities: cyanosis Results Result Diagram: 09/26/16 0400 09/26/16 0400 Results 24 hrs Laboratory Tests Test 09/25/16 12:16 09/25/16 17:22 09/25/16 20:32 09/26/16 00:48 Bedside Glucose 167 183 207 229 H Test 09/26/16 04:00 09/26/16 05:03 09/26/16 07:00 White Blood Count 15.7 H Red Blood Count 3.68 #L Hemoglobin 10.2 #L Hematocrit 31.6 #L Mean Corpuscular Volume 85.9 Mean Corpuscular Hemoglobin 27.7 L Mean Corpuscular Hemoglobin Concent 32.3 Red Cell Distribution Width 15.9 H Platelet Count 216 Mean Platelet Volume 10.7 H Neutrophils % 77.3 H Lymphocytes % 6.7 L Monocytes % 9.9 Eosinophils % 0.3 Basophils % 0.1 Nucleated Red Blood Cells % 3.9 H Neutrophils # 12.2 H Lymphocytes # 1.1 Monocytes # 1.6 H Eosinophils # 0.0 Basophils # 0.0 Nucleated Red Blood Cells # 0.6 H Prothrombin Time 22.0 H Prothrombin Time Ratio 1.7 INR International Normalized Ratio 1.90 Sodium Level 143 Potassium Level 4.0 Chloride Level 107 Carbon Dioxide Level 16 L Anion Gap 24 H Blood Urea Nitrogen 85 H Creatinine 5.74 H Glucose Level 236 H Calcium Level 5.7 *L Magnesium Level 2.1 Total Bilirubin 1.5 H Direct Bilirubin 1.10 H Indirect Bilirubin 0.4 Aspartate Amino Transf (AST/SGOT) 1498 H Alanine Aminotransferase (ALT/SGPT) 2080 H Alkaline Phosphatase 209 H Total Protein 5.4 L Albumin 2.7 L Globulin 2.70 Albumin/Globulin Ratio 1.00 Bedside Glucose 269 H Blood Gas Specimen Source Blood arterial Arterial Blood Date Drawn 09/26/2016 7:46:27 AM Arterial Blood pH (Temp corrected) 7.445 Arterial Blood pCO2 (Temp correct) 35.3 Arterial Blood pO2 (Temp corrected) 69.5 L Arterial Blood HCO3 23.7 Arterial Blood Base Excess -0.1 Arterial Blood Oxygen Saturation 93.4 L Raz Test N/A Arterial Blood Gas Puncture Site A-Line Arterial Blood Carboxyhemoglobin 0.3 Arterial Blood Methemoglobin 0.4 Blood Gas A-a O2 Differential 102.9 H Oxyhemoglobin Percent 92.7 L Total Hemoglobin 9.5 L Blood Gas Temperature 37.0 Blood Gas Respiration Rate 16.0 Blood Gas Actual Respiration Rate 16 Blood Gas Modality VENT - AC FiO2 30.0 Blood Gas Tidal Volume 500.0 Blood Gas Low PEEP Setting 0 Blood Gas Notified Whom JLD Blood Gas Notified Time 09/26/2016 8:05:16 AM Medications Medications Current Medications Ticagrelor (Brilinta) 90 mg BID PO Last administered on 09/24/16t 21:16; Admin Dose 90 MG; Start 09/21/16 at 09:00; Status Future Hold Miscellaneous Information 1 ea NOTE XX ; Start 09/20/16 at 22:00 Glucose (Glutose) 15 gm Q15M PRN PO DECREASED GLUCOSE; Start 09/20/16 at 22:00 Glucose (Glutose) 22.5 gm Q15M PRN PO DECREASED GLUCOSE; Start 09/20/16 at 22: 00 Dextrose (D50w Syringe) 25 ml Q15M PRN IV DECREASED GLUCOSE; Start 09/20/16 at 22:00 Dextrose (D50w Syringe) 50 ml Q15M PRN IV DECREASED GLUCOSE; Start 09/20/16 at 22:00 Glucagon (Glucagen) 1 mg Q15M PRN IM DECREASED GLUCOSE; Start 09/20/16 at 22:00 Glucose 15 gm 15 gm Q15M PRN BUCCAL DECREASED GLUCOSE; Start 09/20/16 at 22:00 Fentanyl 100 ml @ 2.5 mls/hr TITRATE IV ; Start 09/20/16 at 23:30 Propofol 100 ml @ 4.5 mls/hr Q12H IV Last administered on 09/22/16 03:41; Admin Dose 2.7 MLS/HR; Start 09/20/16 at 23:30 Dopamine HCl/ Dextrose 250 ml @ 11.25 mls/ hr TITRATE IV Last administered on 09/21/16 16:32; Admin Dose 33.75 MLS/HR; Start 09/21/16 at 00:30 Norepinephrine/ Dextrose (Levophed/D5W) 500 ml @ 1.87 mls/hr TITRATE IV Last administered on 09/23/16 21:45; Admin Dose 30 MLS/HR; Start 09/21/16 at 07:00 Acetaminophen (Tylenol Liquid) 650 mg Q4H PRN NGT PAIN AND OR ELEVATED TEMP Last administered on 09/22/16 05:41; Admin Dose 650 MG; Start 09/21/16 at 02:00 Eye Lubricant (Artificial Tears Oph) 2 drop QID BOTH EYES Last administered on 09/25/16 20:29; Admin Dose 2 DROP; Start 09/21/16 at 09:00 Dextrose (D50w Syringe) 25 ml Q15M PRN IV Till BS 80 mg/dL or above x2; Start 09/21/16 at 08:00 Dextrose 50 ml 50 ml Q15M PRN IV Till BS 80 mg/dL or above x2; Start 09/21/16 at 08:00 Piperacillin Sod/ Tazobactam Sod (Zosyn 3.375gm/ 100 ml (Pmx)) 100 ml @ 25 mls/ hr TID@02,10,18 IVPB Last administered on 09/26/16 02:15; Admin Dose 25 MLS/HR ; Start 09/22/16 at 02:00 Atorvastatin Calcium 80 mg 80 mg HS NGT Last administered on 09/25/16 20:28; Admin Dose 80 MG; Start 09/22/16 at 21:00 Phenylephrine HCl/ Dextrose (Tyree-Syneph/D5W) 500 ml @ 75 mls/hr TITRATE PRN IV bp SUPPORT; Start 09/22/16 at 20:00 Insulin Aspart (Novolog Insulin Pen) NOVOLOG *MILD* ALGORI... Q4 SC Last administered on 09/26/16 05:07; Admin Dose 4 UNIT; Start 09/25/16 at 13:00 Insulin Glargine 20 unit 20 unit DAILY@08 SC Last administered on 09/25/16 12: 29; Admin Dose 20 UNIT; Start 09/25/16 at 10:30 Calcium Gluconate 1 gm/Dextrose/ Sodium Chloride 1,010 ml @ 60 mls/hr [id number] IV Last administered on 09/25/16 17:21; Admin Dose 60 MLS/HR; Start 09/25/16 at 16:00 Bumetanide/ Dextrose (Bumex/D5W) 250 ml @ 10 mls/hr Q24H IV Last administered on 09/25/16 17:21; Admin Dose 10 MLS/HR; Start 09/25/16 at 16:00 Pantoprazole (Protonix Iv) 40 mg AM IV ; Start 09/26/16 at 09:00 DAMIR MARTINEZ MD Sep 26, 2016 08:39
[2016-09-26] MEDS: CALCIUM GLUCONATE IV SCH ×2 (08:50→10:10)
[2016-09-26] MEDS: DEXTROSE IV SCH ×2 (08:50→10:10)
[2016-09-26] MEDS: NACL IV SCH ×2 (08:50→10:10)
[2016-09-26] MEDS: INSULIN GLARGINE [LANtus] 3 ML PEN SC SCH (08:51)
[2016-09-26] MEDS: ARTIFICIAL TEARS 15 ML OPH BOTH EYES SCH ×4 (08:53→20:42)
[2016-09-26] MEDS ORDERED: CALCIUM GLUCONATE 10% 1 GM in SOD CHLORIDE 0.9% 100 ML IVPB SCH (09:00)
[2016-09-26] MEDS ORDERED: LIDOCAINE 1% (MDV) 20 ML INJ SC ONE (09:30)
--- NOTE | 2016-09-26 10:31 | CONS ---
Date/Time of Note Date/Time of Note DATE: 09/26/16 TIME: 10:29 Consult Date/Type/Reason Admit Date/Time Sep 20, 2016 at 19:21 Initial Consult Date 09/23/16 Type of Consultation: pulmonary ICU Ordering Provider: ZANDRA ROBISON MD, [facility] Subjective Patient beginning to open eyes and follows simple commands Still requiring vasopressor support Remains orally intubated on mechanical ventilation Decreased coffee-ground output from nasogastric tube Objective Vital Signs Date Time Temp Pulse Resp B/P Pulse Ox O2 Delivery O2 Flow Rate FiO2 09/26/16 10:00 107 16 141/63 95 Mechanical Ventilator 09/26/16 09:15 30 09/26/16 08:00 97.7 Intake and Output 09/25/16 09/25/16 09/26/16 15:00 23:00 07:00 Intake Total 970 ml 580 ml 660 ml Output Total 145 ml 387 ml 897 ml Balance 825 ml 193 ml -237 ml Exam PHYSICAL EXAMINATION GENERAL: Elderly lady intubated on mechanical ventilation appears comfortable at rest VITAL SIGNS: see below. HEENT: Pupils equal, round, and reactive to light. CARDIAC: S1, S2, tachycardia. CHEST: Diminished air entry bilaterally. ABDOMEN: Mildly distended. Bowel sounds present no guarding or rebound EXTREMITIES: No cyanosis, clubbing edema+2 NEUROLOGIC: Unable to assess Results/Medications Result Diagram: 09/26/16 0400 09/26/16 0400 Results 24 hrs Laboratory Tests Test 09/25/16 12:16 09/25/16 17:22 09/25/16 20:32 09/26/16 00:48 Bedside Glucose 167 183 207 229 H Test 09/26/16 04:00 09/26/16 05:03 09/26/16 07:00 09/26/16 08:50 White Blood Count 15.7 H Red Blood Count 3.68 #L Hemoglobin 10.2 #L Hematocrit 31.6 #L Mean Corpuscular Volume 85.9 Mean Corpuscular Hemoglobin 27.7 L Mean Corpuscular Hemoglobin Concent 32.3 Red Cell Distribution Width 15.9 H Platelet Count 216 Mean Platelet Volume 10.7 H Neutrophils % 77.3 H Lymphocytes % 6.7 L Monocytes % 9.9 Eosinophils % 0.3 Basophils % 0.1 Nucleated Red Blood Cells % 3.9 H Neutrophils # 12.2 H Lymphocytes # 1.1 Monocytes # 1.6 H Eosinophils # 0.0 Basophils # 0.0 Nucleated Red Blood Cells # 0.6 H Prothrombin Time 22.0 H Prothrombin Time Ratio 1.7 INR International Normalized Ratio 1.90 Sodium Level 143 Potassium Level 4.0 Chloride Level 107 Carbon Dioxide Level 16 L Anion Gap 24 H Blood Urea Nitrogen 85 H Creatinine 5.74 H Glucose Level 236 H Calcium Level 5.7 *L Magnesium Level 2.1 Total Bilirubin 1.5 H Direct Bilirubin 1.10 H Indirect Bilirubin 0.4 Aspartate Amino Transf (AST/SGOT) 1498 H Alanine Aminotransferase (ALT/SGPT) 2080 H Alkaline Phosphatase 209 H Total Protein 5.4 L Albumin 2.7 L Globulin 2.70 Albumin/Globulin Ratio 1.00 Bedside Glucose 269 H 287 H Blood Gas Specimen Source Blood arterial Arterial Blood Date Drawn 09/26/2016 7:46:27 AM Arterial Blood pH (Temp corrected) 7.445 Arterial Blood pCO2 (Temp correct) 35.3 Arterial Blood pO2 (Temp corrected) 69.5 L Arterial Blood HCO3 23.7 Arterial Blood Base Excess -0.1 Arterial Blood Oxygen Saturation 93.4 L Raz Test N/A Arterial Blood Gas Puncture Site A-Line Arterial Blood Carboxyhemoglobin 0.3 Arterial Blood Methemoglobin 0.4 Blood Gas A-a O2 Differential 102.9 H Oxyhemoglobin Percent 92.7 L Total Hemoglobin 9.5 L Blood Gas Temperature 37.0 Blood Gas Respiration Rate 16.0 Blood Gas Actual Respiration Rate 16 Blood Gas Modality VENT - AC FiO2 30.0 Blood Gas Tidal Volume 500.0 Blood Gas Low PEEP Setting 0 Blood Gas Notified Whom JLD Blood Gas Notified Time 09/26/2016 8:05:16 AM Medications Current Medications Ticagrelor (Brilinta) 90 mg BID PO Last administered on 09/24/16t 21:16; Admin Dose 90 MG; Start 09/21/16 at 09:00; Status Future Hold Miscellaneous Information 1 ea NOTE XX ; Start 09/20/16 at 22:00 Glucose (Glutose) 15 gm Q15M PRN PO DECREASED GLUCOSE; Start 09/20/16 at 22:00 Glucose (Glutose) 22.5 gm Q15M PRN PO DECREASED GLUCOSE; Start 09/20/16 at 22: 00 Dextrose (D50w Syringe) 25 ml Q15M PRN IV DECREASED GLUCOSE; Start 09/20/16 at 22:00 Dextrose (D50w Syringe) 50 ml Q15M PRN IV DECREASED GLUCOSE; Start 09/20/16 at 22:00 Glucagon (Glucagen) 1 mg Q15M PRN IM DECREASED GLUCOSE; Start 09/20/16 at 22:00 Glucose 15 gm 15 gm Q15M PRN BUCCAL DECREASED GLUCOSE; Start 09/20/16 at 22:00 Fentanyl 100 ml @ 2.5 mls/hr TITRATE IV ; Start 09/20/16 at 23:30 Propofol 100 ml @ 4.5 mls/hr Q12H IV Last administered on 09/22/16 03:41; Admin Dose 2.7 MLS/HR; Start 09/20/16 at 23:30 Dopamine HCl/ Dextrose 250 ml @ 11.25 mls/ hr TITRATE IV Last administered on 09/21/16 16:32; Admin Dose 33.75 MLS/HR; Start 09/21/16 at 00:30 Norepinephrine/ Dextrose (Levophed/D5W) 500 ml @ 1.87 mls/hr TITRATE IV Last administered on 09/23/16 21:45; Admin Dose 30 MLS/HR; Start 09/21/16 at 07:00 Acetaminophen (Tylenol Liquid) 650 mg Q4H PRN NGT PAIN AND OR ELEVATED TEMP Last administered on 09/22/16 05:41; Admin Dose 650 MG; Start 09/21/16 at 02:00 Eye Lubricant (Artificial Tears Oph) 2 drop QID BOTH EYES Last administered on 09/26/16 08:53; Admin Dose 2 DROP; Start 09/21/16 at 09:00 Dextrose (D50w Syringe) 25 ml Q15M PRN IV Till BS 80 mg/dL or above x2; Start 09/21/16 at 08:00 Dextrose 50 ml 50 ml Q15M PRN IV Till BS 80 mg/dL or above x2; Start 09/21/16 at 08:00 Piperacillin Sod/ Tazobactam Sod (Zosyn 3.375gm/ 100 ml (Pmx)) 100 ml @ 25 mls/ hr TID@02,10,18 IVPB Last administered on 09/26/16 02:15; Admin Dose 25 MLS/HR ; Start 09/22/16 at 02:00 Atorvastatin Calcium 80 mg 80 mg HS NGT Last administered on 09/25/16 20:28; Admin Dose 80 MG; Start 09/22/16 at 21:00 Phenylephrine HCl/ Dextrose (Tyree-Syneph/D5W) 500 ml @ 75 mls/hr TITRATE PRN IV bp SUPPORT; Start 09/22/16 at 20:00 Insulin Aspart (Novolog Insulin Pen) NOVOLOG *MILD* ALGORI... Q4 SC Last administered on 09/26/16 08:52; Admin Dose 4 UNIT; Start 09/25/16 at 13:00 Insulin Glargine 20 unit 20 unit DAILY@08 SC Last administered on 09/26/16 08: 51; Admin Dose 20 UNIT; Start 09/25/16 at 10:30 Calcium Gluconate 1 gm/Dextrose/ Sodium Chloride 1,010 ml @ 60 mls/hr [id number] IV Last administered on 09/26/16 10:10; Admin Dose 60 MLS/HR; Start 09/25/16 at 16:00 Bumetanide/ Dextrose (Bumex/D5W) 250 ml @ 10 mls/hr Q24H IV Last administered on 09/25/16 17:21; Admin Dose 10 MLS/HR; Start 09/25/16 at 16:00 Pantoprazole 40 mg 40 mg AM IV ; Start 09/26/16 at 09:00 Calcium Gluconate/ Sodium Chloride (Ca Gluc/NS) 110 ml @ 110 mls/hr Q12 IVPB Last administered on 09/26/16 09:33; Admin Dose 110 MLS/HR; Start 09/26/16 at 09:00 Epoetin Raj (Epogen (Esrd)) 10,000 units TuThSa@17 SC ; Start 09/26/16 at 17:00 Assessment/Plan Chief Complaint/Hosp Course IMPRESSION 1. Cardiac arrest. ST elevation [place] stent placement to RCA 2. Signs of neurological improvement today 3. Acute renal failure, probably acute tubular necrosis injury. 4. Shock liver. 5. Possible aspiration pneumonia with septic shock. Plan 1. Continue mechanical ventilation. 2. Continue renal recommendations. 3. Continue vasopressor support. 4. Broad-spectrum antibiotic coverage. 5. Glycemic management. 6. Trial of tube feeding 7. Neurology recommendations 8. DC femoral line PICC line placement Disposition Continue supportive care Problems: VADGAMA,ZANDRA V. MD, [facility] Sep 26, 2016 10:31
[2016-09-26] MEDS: PROPOFOL 100 ML IV SCH (10:38)
--- NOTE | 2016-09-26 11:56 | CONS ---
Date/Time of Note Date/Time of Note DATE: 09/26/16 TIME: 11:51 Consult Date/Type/Reason Admit Date/Time Sep 20, 2016 at 19:21 Initial Consult Date 09/23/16 Type of Consultation: Neurology Reason for Consultation cardiac arrest off hypothermia protocol neurology evaluation for prognosis persistent encephalopathy Ordering Provider: [facility]DR[facility] ROBISON [facility], [facility] Subjective opening her eyes to voice and command more today briefly tracks examiner Objective Vital Signs Date Time Temp Pulse Resp B/P Pulse Ox O2 Delivery O2 Flow Rate FiO2 09/26/16 11:20 106 16 99 30 09/26/16 10:00 141/63 Mechanical Ventilator 09/26/16 08:00 97.7 Intake and Output 09/25/16 09/25/16 09/26/16 15:00 23:00 07:00 Intake Total 970 ml 580 ml 660 ml Output Total 145 ml 387 ml 897 ml Balance 825 ml 193 ml -237 ml Exam intubated off sedation opens her eyes to command, tracks briefly unable to sustain eye opening CN: FLEX corneals are absent, gag is absent oculocephalics intact Motor no withdrawal to extremities Results/Medications Result Diagram: 09/26/16 0400 09/26/16 0400 Results 24 hrs Laboratory Tests Test 09/25/16 12:16 09/25/16 17:22 09/25/16 20:32 09/26/16 00:48 Bedside Glucose 167 183 207 229 H Test 09/26/16 04:00 09/26/16 05:03 09/26/16 07:00 09/26/16 08:50 White Blood Count 15.7 H Red Blood Count 3.68 #L Hemoglobin 10.2 #L Hematocrit 31.6 #L Mean Corpuscular Volume 85.9 Mean Corpuscular Hemoglobin 27.7 L Mean Corpuscular Hemoglobin Concent 32.3 Red Cell Distribution Width 15.9 H Platelet Count 216 Mean Platelet Volume 10.7 H Neutrophils % 77.3 H Lymphocytes % 6.7 L Monocytes % 9.9 Eosinophils % 0.3 Basophils % 0.1 Nucleated Red Blood Cells % 3.9 H Neutrophils # 12.2 H Lymphocytes # 1.1 Monocytes # 1.6 H Eosinophils # 0.0 Basophils # 0.0 Nucleated Red Blood Cells # 0.6 H Prothrombin Time 22.0 H Prothrombin Time Ratio 1.7 INR International Normalized Ratio 1.90 Sodium Level 143 Potassium Level 4.0 Chloride Level 107 Carbon Dioxide Level 16 L Anion Gap 24 H Blood Urea Nitrogen 85 H Creatinine 5.74 H Glucose Level 236 H Calcium Level 5.7 *L Magnesium Level 2.1 Total Bilirubin 1.5 H Direct Bilirubin 1.10 H Indirect Bilirubin 0.4 Aspartate Amino Transf (AST/SGOT) 1498 H Alanine Aminotransferase (ALT/SGPT) 2080 H Alkaline Phosphatase 209 H Total Protein 5.4 L Albumin 2.7 L Globulin 2.70 Albumin/Globulin Ratio 1.00 Bedside Glucose 269 H 287 H Blood Gas Specimen Source Blood arterial Arterial Blood Date Drawn 09/26/2016 7:46:27 AM Arterial Blood pH (Temp corrected) 7.445 Arterial Blood pCO2 (Temp correct) 35.3 Arterial Blood pO2 (Temp corrected) 69.5 L Arterial Blood HCO3 23.7 Arterial Blood Base Excess -0.1 Arterial Blood Oxygen Saturation 93.4 L Raz Test N/A Arterial Blood Gas Puncture Site A-Line Arterial Blood Carboxyhemoglobin 0.3 Arterial Blood Methemoglobin 0.4 Blood Gas A-a O2 Differential 102.9 H Oxyhemoglobin Percent 92.7 L Total Hemoglobin 9.5 L Blood Gas Temperature 37.0 Blood Gas Respiration Rate 16.0 Blood Gas Actual Respiration Rate 16 Blood Gas Modality VENT - AC FiO2 30.0 Blood Gas Tidal Volume 500.0 Blood Gas Low PEEP Setting 0 Blood Gas Notified Whom JLD Blood Gas Notified Time 09/26/2016 8:05:16 AM Medications Current Medications Ticagrelor (Brilinta) 90 mg BID PO Last administered on 09/24/16t 21:16; Admin Dose 90 MG; Start 09/21/16 at 09:00; Status Future Hold Miscellaneous Information 1 ea NOTE XX ; Start 09/20/16 at 22:00 Glucose (Glutose) 15 gm Q15M PRN PO DECREASED GLUCOSE; Start 09/20/16 at 22:00 Glucose (Glutose) 22.5 gm Q15M PRN PO DECREASED GLUCOSE; Start 09/20/16 at 22: 00 Dextrose (D50w Syringe) 25 ml Q15M PRN IV DECREASED GLUCOSE; Start 09/20/16 at 22:00 Dextrose (D50w Syringe) 50 ml Q15M PRN IV DECREASED GLUCOSE; Start 09/20/16 at 22:00 Glucagon (Glucagen) 1 mg Q15M PRN IM DECREASED GLUCOSE; Start 09/20/16 at 22:00 Glucose 15 gm 15 gm Q15M PRN BUCCAL DECREASED GLUCOSE; Start 09/20/16 at 22:00 Fentanyl 100 ml @ 2.5 mls/hr TITRATE IV ; Start 09/20/16 at 23:30 Propofol 100 ml @ 4.5 mls/hr Q12H IV Last administered on 09/22/16 03:41; Admin Dose 2.7 MLS/HR; Start 09/20/16 at 23:30 Dopamine HCl/ Dextrose 250 ml @ 11.25 mls/ hr TITRATE IV Last administered on 09/21/16 16:32; Admin Dose 33.75 MLS/HR; Start 09/21/16 at 00:30 Norepinephrine/ Dextrose (Levophed/D5W) 500 ml @ 1.87 mls/hr TITRATE IV Last administered on 09/23/16 21:45; Admin Dose 30 MLS/HR; Start 09/21/16 at 07:00 Acetaminophen (Tylenol Liquid) 650 mg Q4H PRN NGT PAIN AND OR ELEVATED TEMP Last administered on 09/22/16 05:41; Admin Dose 650 MG; Start 09/21/16 at 02:00 Eye Lubricant (Artificial Tears Oph) 2 drop QID BOTH EYES Last administered on 09/26/16 08:53; Admin Dose 2 DROP; Start 09/21/16 at 09:00 Dextrose (D50w Syringe) 25 ml Q15M PRN IV Till BS 80 mg/dL or above x2; Start 09/21/16 at 08:00 Dextrose (D50w Syringe) 50 ml Q15M PRN IV Till BS 80 mg/dL or above x2; Start 09/21/16 at 08:00 Atorvastatin Calcium 80 mg 80 mg HS NGT Last administered on 09/25/16 20:28; Admin Dose 80 MG; Start 09/22/16 at 21:00 Phenylephrine HCl/ Dextrose (Tyree-Syneph/D5W) 500 ml @ 75 mls/hr TITRATE PRN IV bp SUPPORT; Start 09/22/16 at 20:00 Insulin Aspart (Novolog Insulin Pen) NOVOLOG *MILD* ALGORI... Q4 SC Last administered on 09/26/16 08:52; Admin Dose 4 UNIT; Start 09/25/16 at 13:00 Insulin Glargine 20 unit 20 unit DAILY@08 SC Last administered on 09/26/16 08: 51; Admin Dose 20 UNIT; Start 09/25/16 at 10:30 Calcium Gluconate 1 gm/Dextrose/ Sodium Chloride 1,010 ml @ 60 mls/hr [id number] IV Last administered on 09/26/16 10:10; Admin Dose 60 MLS/HR; Start 09/25/16 at 16:00 Bumetanide/ Dextrose (Bumex/D5W) 250 ml @ 10 mls/hr Q24H IV Last administered on 09/25/16 17:21; Admin Dose 10 MLS/HR; Start 09/25/16 at 16:00 Pantoprazole 40 mg 40 mg AM IV ; Start 09/26/16 at 09:00 Calcium Gluconate/ Sodium Chloride (Ca Gluc/NS) 110 ml @ 110 mls/hr Q12 IVPB Last administered on 09/26/16 09:33; Admin Dose 110 MLS/HR; Start 09/26/16 at 09:00 Epoetin Raj 83296 units 10,000 units TuThSa@17 SC ; Start 09/26/16 at 17:00 Piperacillin Sod/ Tazobactam Sod (Zosyn 3.375gm/ 100 ml (Pmx)) 100 ml @ 25 mls/ hr BID@02,14 IVPB ; Start 09/27/16 at 02:00 Assessment/Plan Chief Complaint/Hosp Course 71 year old female with history of diabetes found unresponsive by with profound bradycardia, STEMI requiring RCA stent, hypothermia protocol. CTH showed no evidence of hypoxic injury. EEG showed bihemispheric slowing consistent with encephalopathy. no seizures however brain activity is present. -opening her eyes today, unable to follow commands with absent gag reflex and corneal reflex, overall prognosis is poor in setting of multiple metabolic issues -family discussion regarding goals of care is currently ongoing Problems: CHINYERE GARCIA MD Sep 26, 2016 11:56
--- NOTE | 2016-09-26 12:35 | CONS ---
Date/Time of Note Date/Time of Note DATE: 09/26/16 TIME: 12:28 Consult Date/Type/Reason Admit Date/Time Sep 20, 2016 at 19:21 Initial Consult Date 09/23/16 Type of Consultation: GI Ordering Provider: ZANDRA ROBISON MD, [facility] Subjective Opens eyes to commands No stool noted NG drainage bilious Objective Vital Signs Date Time Temp Pulse Resp B/P Pulse Ox O2 Delivery O2 Flow Rate FiO2 09/26/16 11:20 106 16 99 30 09/26/16 10:00 141/63 Mechanical Ventilator 09/26/16 08:00 97.7 Cheat: rhochi Cardiac: no m, r, g Abdomen: soft, non tender, +BS Intake and Output 09/25/16 09/25/16 09/26/16 14:59 22:59 06:59 Intake Total 860 ml 630 ml 660 ml Output Total 150 ml 337 ml 917 ml Balance 710 ml 293 ml -257 ml Results/Medications Result Diagram: 09/26/16 0400 09/26/16 0400 Results 24 hrs Laboratory Tests Test 09/25/16 17:22 09/25/16 20:32 09/26/16 00:48 09/26/16 04:00 Bedside Glucose 183 207 229 H White Blood Count 15.7 H Red Blood Count 3.68 #L Hemoglobin 10.2 #L Hematocrit 31.6 #L Mean Corpuscular Volume 85.9 Mean Corpuscular Hemoglobin 27.7 L Mean Corpuscular Hemoglobin Concent 32.3 Red Cell Distribution Width 15.9 H Platelet Count 216 Mean Platelet Volume 10.7 H Neutrophils % 77.3 H Lymphocytes % 6.7 L Monocytes % 9.9 Eosinophils % 0.3 Basophils % 0.1 Nucleated Red Blood Cells % 3.9 H Neutrophils # 12.2 H Lymphocytes # 1.1 Monocytes # 1.6 H Eosinophils # 0.0 Basophils # 0.0 Nucleated Red Blood Cells # 0.6 H Prothrombin Time 22.0 H Prothrombin Time Ratio 1.7 INR International Normalized Ratio 1.90 Sodium Level 143 Potassium Level 4.0 Chloride Level 107 Carbon Dioxide Level 16 L Anion Gap 24 H Blood Urea Nitrogen 85 H Creatinine 5.74 H Glucose Level 236 H Calcium Level 5.7 *L Magnesium Level 2.1 Total Bilirubin 1.5 H Direct Bilirubin 1.10 H Indirect Bilirubin 0.4 Aspartate Amino Transf (AST/SGOT) 1498 H Alanine Aminotransferase (ALT/SGPT) 2080 H Alkaline Phosphatase 209 H Total Protein 5.4 L Albumin 2.7 L Globulin 2.70 Albumin/Globulin Ratio 1.00 Test 09/26/16 05:03 09/26/16 07:00 09/26/16 08:50 Bedside Glucose 269 H 287 H Blood Gas Specimen Source Blood arterial Arterial Blood Date Drawn 09/26/2016 7:46:27 AM Arterial Blood pH (Temp corrected) 7.445 Arterial Blood pCO2 (Temp correct) 35.3 Arterial Blood pO2 (Temp corrected) 69.5 L Arterial Blood HCO3 23.7 Arterial Blood Base Excess -0.1 Arterial Blood Oxygen Saturation 93.4 L Raz Test N/A Arterial Blood Gas Puncture Site A-Line Arterial Blood Carboxyhemoglobin 0.3 Arterial Blood Methemoglobin 0.4 Blood Gas A-a O2 Differential 102.9 H Oxyhemoglobin Percent 92.7 L Total Hemoglobin 9.5 L Blood Gas Temperature 37.0 Blood Gas Respiration Rate 16.0 Blood Gas Actual Respiration Rate 16 Blood Gas Modality VENT - AC FiO2 30.0 Blood Gas Tidal Volume 500.0 Blood Gas Low PEEP Setting 0 Blood Gas Notified Whom JLD Blood Gas Notified Time 09/26/2016 8:05:16 AM Medications Current Medications Ticagrelor (Brilinta) 90 mg BID PO Last administered on 09/24/16t 21:16; Admin Dose 90 MG; Start 09/21/16 at 09:00; Status Future Hold Miscellaneous Information 1 ea NOTE XX ; Start 09/20/16 at 22:00 Glucose (Glutose) 15 gm Q15M PRN PO DECREASED GLUCOSE; Start 09/20/16 at 22:00 Glucose (Glutose) 22.5 gm Q15M PRN PO DECREASED GLUCOSE; Start 09/20/16 at 22: 00 Dextrose (D50w Syringe) 25 ml Q15M PRN IV DECREASED GLUCOSE; Start 09/20/16 at 22:00 Dextrose (D50w Syringe) 50 ml Q15M PRN IV DECREASED GLUCOSE; Start 09/20/16 at 22:00 Glucagon (Glucagen) 1 mg Q15M PRN IM DECREASED GLUCOSE; Start 09/20/16 at 22:00 Glucose 15 gm 15 gm Q15M PRN BUCCAL DECREASED GLUCOSE; Start 09/20/16 at 22:00 Fentanyl 100 ml @ 2.5 mls/hr TITRATE IV ; Start 09/20/16 at 23:30 Propofol 100 ml @ 4.5 mls/hr Q12H IV Last administered on 09/22/16 03:41; Admin Dose 2.7 MLS/HR; Start 09/20/16 at 23:30 Dopamine HCl/ Dextrose 250 ml @ 11.25 mls/ hr TITRATE IV Last administered on 09/21/16 16:32; Admin Dose 33.75 MLS/HR; Start 09/21/16 at 00:30 Norepinephrine/ Dextrose (Levophed/D5W) 500 ml @ 1.87 mls/hr TITRATE IV Last administered on 09/23/16 21:45; Admin Dose 30 MLS/HR; Start 09/21/16 at 07:00 Acetaminophen (Tylenol Liquid) 650 mg Q4H PRN NGT PAIN AND OR ELEVATED TEMP Last administered on 09/22/16 05:41; Admin Dose 650 MG; Start 09/21/16 at 02:00 Eye Lubricant (Artificial Tears Oph) 2 drop QID BOTH EYES Last administered on 09/26/16 08:53; Admin Dose 2 DROP; Start 09/21/16 at 09:00 Dextrose (D50w Syringe) 25 ml Q15M PRN IV Till BS 80 mg/dL or above x2; Start 09/21/16 at 08:00 Dextrose (D50w Syringe) 50 ml Q15M PRN IV Till BS 80 mg/dL or above x2; Start 09/21/16 at 08:00 Atorvastatin Calcium 80 mg 80 mg HS NGT Last administered on 09/25/16 20:28; Admin Dose 80 MG; Start 09/22/16 at 21:00 Phenylephrine HCl/ Dextrose (Tyree-Syneph/D5W) 500 ml @ 75 mls/hr TITRATE PRN IV bp SUPPORT; Start 09/22/16 at 20:00 Insulin Aspart (Novolog Insulin Pen) NOVOLOG *MILD* ALGORI... Q4 SC Last administered on 09/26/16 08:52; Admin Dose 4 UNIT; Start 09/25/16 at 13:00 Insulin Glargine 20 unit 20 unit DAILY@08 SC Last administered on 09/26/16 08: 51; Admin Dose 20 UNIT; Start 09/25/16 at 10:30 Calcium Gluconate 1 gm/Dextrose/ Sodium Chloride 1,010 ml @ 60 mls/hr [id number] IV Last administered on 09/26/16 10:10; Admin Dose 60 MLS/HR; Start 09/25/16 at 16:00 Bumetanide/ Dextrose (Bumex/D5W) 250 ml @ 10 mls/hr Q24H IV Last administered on 09/25/16 17:21; Admin Dose 10 MLS/HR; Start 09/25/16 at 16:00 Pantoprazole 40 mg 40 mg AM IV ; Start 09/26/16 at 09:00 Calcium Gluconate/ Sodium Chloride (Ca Gluc/NS) 110 ml @ 110 mls/hr Q12 IVPB Last administered on 09/26/16 09:33; Admin Dose 110 MLS/HR; Start 09/26/16 at 09:00 Epoetin Raj 53307 units 10,000 units TuThSa@17 SC ; Start 09/26/16 at 17:00 Piperacillin Sod/ Tazobactam Sod (Zosyn 3.375gm/ 100 ml (Pmx)) 100 ml @ 25 mls/ hr BID@02,14 IVPB ; Start 09/27/16 at 02:00 Assessment/Plan Chief Complaint/Hosp Course Impression: 1. GI bleed - stable, no further bleeding with appropriate response to transfusion 2. Shock Liver - note elevated PT despite Vitamin K suggests substantial liver injury Plan: 1. Continue IV Protonix 2. Avoid EGD unless substantial rebleed given recent SC and overall status 3. Given elevated PT, may not need anticoagulation currently 4. Need to be careful with medication dosing given substantial liver injury impairing metabolism of drugs 6. Discussed with Dr. Robison Problems: TOMASA GLASS MD Sep 26, 2016 12:35
[2016-09-26] MEDS ORDERED: SOD CHLORIDE 0.9% 100 ML ONE (17:41)
[2016-09-26] MEDS: BUMETANIDE 25 MG in DEXTROSE 5% 150 ML IV SCH (17:55)
[2016-09-26] MEDS: EPOETIN 10000 UNITS/1 ML INJ (ESRD) SC SCH (17:57)
--- NOTE | 2016-09-26 18:00 | RADRPT ---
PROCEDURE: Ultrasound guidance for placement of needle in left upper extremity vein. CLINICAL INDICATION: Venous access. TECHNIQUE: Limited sonography of the left upper extremity was performed. Ultrasound images were recorded and s tored in the patient's medical record. COMPARISON: None. FINDINGS: The ultrasound images demonstrate a patent left upper extremity vein. The PICC line was inserted by the PICC line nurse. IMPRESSION: 1. Ultrasound guidance for a needle placement in a left upper extremity vein. 2. The left upper extremity vein is patent. RPTAT: QQ .Arnaldo Back MD, MD Date Time Electronically viewed and signed by .Arnaldo Back MD, MD on 09/26/2016 18:00 .R/
--- NOTE | 2016-09-26 18:03 | RADRPT ---
PROCEDURE: XR Chest. CLINICAL INDICATION: Check PICC line position. TECHNIQUE: Single frontal view. COMPARISON: 09/26/2016. 0547 hours. FINDINGS: There is a left arm PICC line with the tip in the cavoatrial junction. The endotracheal tube and na sogastric tube remain in satisfactory position. There is a moderate right pleural effusion and right basilar atelectasis, unchanged. There is mild left basilar atelectasis. The lungs are otherwise clear. There is no left pleural effusion. There is no pneumothorax. IMPRESSION: 1. Satisfactory position of left arm PICC line. 2. No other change from the prior study done earlier the same day. RPTAT: QQ .Arnaldo Back MD, MD Date Time Electronically viewed and signed by .Arnaldo Back MD, on 09/26/2016 18:03 .R/
--- NOTE | 2016-09-26 18:18 | PN ---
Date/Time of Note Date/Time of Note DATE: 09/24/16 TIME: 14:11 Assessment/Plan VTE Prophylaxis VTE Prophylaxis Intervention: contraindicated VTE Contraindication Reason: bleeding Lines/Catheters IV Catheter Type (from Nrsg): Central Line Central line still needed: Yes Urinary Cath still in place: Yes Reason Cath still needed: other (indicate) (EXTENSIVE FLUID WITH CARDIAC DRIPS NEEDED) Assessment/Plan Assessment/Plan 1. Encephalopathy 2. s/p STEMI--S/P RCA STENT 3. [place] 4. INTUBATED 5. DM 6. H/O HTN--CURRENTLY LOW BP ---PER PULM ---PER CARDS ---PER NEURO ---RENAL CONSULT ---CONT ALL IV MEDS/ FLUID/ LIFE SUPPORTS ---SPOKEN W/ FAMILY Subjective 24 Hr Interval Summary Subjective hx not possible: pt non-verbal, pt critical Exam/Review of Systems Vital Signs Vitals Vital Signs Date Time Temp Pulse Resp B/P Pulse Ox O2 Delivery O2 Flow Rate FiO2 09/26/16 17:58 107 16 100 30 09/26/16 17:00 106/53 Mechanical Ventilator 09/26/16 12:00 98.4 Intake and Output 09/25/16 09/25/16 09/26/16 15:00 23:00 07:00 Intake Total 970 ml 580 ml 660 ml Output Total 145 ml 387 ml 897 ml Balance 825 ml 193 ml -237 ml Exam Constitutional: non-verbal (intubated), obese Respiratory: diminished breath sounds Cardiovascular: diastolic murmur, edema Results Result Diagram: 09/26/16 0400 09/26/16 0400 Results 24 hrs Laboratory Tests Test 09/25/16 20:32 09/26/16 00:48 09/26/16 04:00 09/26/16 05:03 Bedside Glucose 207 229 H 269 H White Blood Count 15.7 H Red Blood Count 3.68 #L Hemoglobin 10.2 #L Hematocrit 31.6 #L Mean Corpuscular Volume 85.9 Mean Corpuscular Hemoglobin 27.7 L Mean Corpuscular Hemoglobin Concent 32.3 Red Cell Distribution Width 15.9 H Platelet Count 216 Mean Platelet Volume 10.7 H Neutrophils % 77.3 H Lymphocytes % 6.7 L Monocytes % 9.9 Eosinophils % 0.3 Basophils % 0.1 Nucleated Red Blood Cells % 3.9 H Neutrophils # 12.2 H Lymphocytes # 1.1 Monocytes # 1.6 H Eosinophils # 0.0 Basophils # 0.0 Nucleated Red Blood Cells # 0.6 H Prothrombin Time 22.0 H Prothrombin Time Ratio 1.7 INR International Normalized Ratio 1.90 Sodium Level 143 Potassium Level 4.0 Chloride Level 107 Carbon Dioxide Level 16 L Anion Gap 24 H Blood Urea Nitrogen 85 H Creatinine 5.74 H Glucose Level 236 H Calcium Level 5.7 *L Magnesium Level 2.1 Total Bilirubin 1.5 H Direct Bilirubin 1.10 H Indirect Bilirubin 0.4 Aspartate Amino Transf (AST/SGOT) 1498 H Alanine Aminotransferase (ALT/SGPT) 2080 H Alkaline Phosphatase 209 H Total Protein 5.4 L Albumin 2.7 L Globulin 2.70 Albumin/Globulin Ratio 1.00 Test 09/26/16 07:00 09/26/16 08:50 09/26/16 14:25 Blood Gas Specimen Source Blood arterial Arterial Blood Date Drawn 09/26/2016 7:46:27 AM Arterial Blood pH (Temp corrected) 7.445 Arterial Blood pCO2 (Temp correct) 35.3 Arterial Blood pO2 (Temp corrected) 69.5 L Arterial Blood HCO3 23.7 Arterial Blood Base Excess -0.1 Arterial Blood Oxygen Saturation 93.4 L Raz Test N/A Arterial Blood Gas Puncture Site A-Line Arterial Blood Carboxyhemoglobin 0.3 Arterial Blood Methemoglobin 0.4 Blood Gas A-a O2 Differential 102.9 H Oxyhemoglobin Percent 92.7 L Total Hemoglobin 9.5 L Blood Gas Temperature 37.0 Blood Gas Respiration Rate 16.0 Blood Gas Actual Respiration Rate 16 Blood Gas Modality VENT - AC FiO2 30.0 Blood Gas Tidal Volume 500.0 Blood Gas Low PEEP Setting 0 Blood Gas Notified Whom JLD Blood Gas Notified Time 09/26/2016 8:05:16 AM Bedside Glucose 287 H 272 H Medications Medications Current Medications Ticagrelor (Brilinta) 90 mg BID PO Last administered on 09/24/16t 21:16; Admin Dose 90 MG; Start 09/21/16 at 09:00; Status Future Hold Miscellaneous Information 1 ea NOTE XX ; Start 09/20/16 at 22:00 Dextrose (D50w Syringe) 25 ml Q15M PRN IV DECREASED GLUCOSE; Start 09/20/16 at 22:00 Glucose (Glutose) 15 gm Q15M PRN BUCCAL DECREASED GLUCOSE; Start 09/20/16 at 22 :00 Acetaminophen (Tylenol Liquid) 650 mg Q4H PRN NGT PAIN AND OR ELEVATED TEMP Last administered on 09/22/16 05:41; Admin Dose 650 MG; Start 09/21/16 at 02:00 Eye Lubricant (Artificial Tears Oph) 2 drop QID BOTH EYES Last administered on 09/26/16 17:56; Admin Dose 2 DROP; Start 09/21/16 at 09:00 Atorvastatin Calcium (Lipitor) 80 mg HS NGT Last administered on 09/25/16 20: 28; Admin Dose 80 MG; Start 09/22/16 at 21:00 Insulin Aspart NOVOLOG *MILD* ALGORI... Q4 SC Last administered on 09/26/16 17 :59; Admin Dose 3 UNIT; Start 09/25/16 at 13:00 Bumetanide/ Dextrose (Bumex/D5W) 250 ml @ 10 mls/hr Q24H IV Last administered on 09/25/16 17:21; Admin Dose 10 MLS/HR; Start 09/25/16 at 16:00 Pantoprazole (Protonix Iv) 40 mg AM IV ; Start 09/26/16 at 09:00 Epoetin Raj 00902 units 10,000 units TuThSa@17 SC Last administered on 17:57; Admin Dose 10,000 UNITS; Start 09/26/16 at 17:00 Piperacillin Sod/ Tazobactam Sod (Zosyn 3.375gm/ 100 ml (Pmx)) 100 ml @ 25 mls/ hr BID@02,14 IVPB ; Start 09/27/16 at 02:00 IV Flush (NS 10 ml) 10 ml PRN PRN IV IV PROTOCOL; Start 09/26/16 at 17:30 Insulin Glargine 30 unit 30 unit DAILY@08 SC ; Start 09/27/16 at 08:00; Status UNV Calcium Gluconate 1 gm/Sodium Chloride 1,010 ml @ 60 mls/hr [id number] IV ; Start 09/26/16 at 18:00; Status UNV Calcium Gluconate/ Sodium Chloride (Ca Gluc/NS) 120 ml @ 60 mls/hr ONCE ONCE IVPB ; Start 09/26/16 at 18:00; Stop 09/26/16 at 19:59; Status UNV Fluconazole (Diflucan) 150 mg ONCE ONCE NGT ; Start 09/26/16 at 18:30; Stop at 18:31; Status UNV SHAMA LOPEZ MD Sep 26, 2016 18:18
--- NOTE | 2016-09-26 18:27 | PN ---
Date/Time of Note Date/Time of Note DATE: 09/25/16 TIME: 13:18 Assessment/Plan VTE Prophylaxis VTE Prophylaxis Intervention: contraindicated VTE Contraindication Reason: bleeding Lines/Catheters IV Catheter Type (from Nrsg): Central Line Central line still needed: Yes (EXTENSIVE FLUIDS, & IV MEDS NEEDED) Urinary Cath still in place: Yes Reason Cath still needed: other (indicate) (BED BOUND IN ICU, INTUBATED) Assessment/Plan Assessment/Plan 1. ANEMIA--AGIB? 2. ENCEPHALOPATHY 3. INTUBATED 4. [place] 5. S/P STEMI--S/P RCA STENT 6. DM 7. LOW CALC ---PER PULM ---PER CARDS ---PER NEURO ---PER RENAL ---GI CONSULT ---BLOOD TRANSFUSION ---REPLACE CALC ---HOLD ALL ANTICOAG ---SPOKEN W/ FAMILY WHO AGREES W/ CHEMICAL CODE, & CONT ALL MEDS/ SUPPORTS/ MACHINE FOR ANOTHER 72 HRS Subjective 24 Hr Interval Summary Subjective hx not possible: pt non-verbal, pt critical Exam/Review of Systems Vital Signs Vitals Vital Signs Date Time Temp Pulse Resp B/P Pulse Ox O2 Delivery O2 Flow Rate FiO2 09/26/16 17:58 107 16 100 30 09/26/16 17:00 106/53 Mechanical Ventilator 09/26/16 12:00 98.4 Intake and Output 09/25/16 09/25/16 09/26/16 15:00 23:00 07:00 Intake Total 970 ml 580 ml 660 ml Output Total 145 ml 387 ml 897 ml Balance 825 ml 193 ml -237 ml Exam Constitutional: non-verbal (INTUBATED), obese Respiratory: diminished breath sounds Cardiovascular: diastolic murmur (LESS DRIPS) Results Result Diagram: 09/26/16 0400 09/26/16 0400 Results 24 hrs Laboratory Tests Test 09/25/16 20:32 09/26/16 00:48 09/26/16 04:00 09/26/16 05:03 Bedside Glucose 207 229 H 269 H White Blood Count 15.7 H Red Blood Count 3.68 #L Hemoglobin 10.2 #L Hematocrit 31.6 #L Mean Corpuscular Volume 85.9 Mean Corpuscular Hemoglobin 27.7 L Mean Corpuscular Hemoglobin Concent 32.3 Red Cell Distribution Width 15.9 H Platelet Count 216 Mean Platelet Volume 10.7 H Neutrophils % 77.3 H Lymphocytes % 6.7 L Monocytes % 9.9 Eosinophils % 0.3 Basophils % 0.1 Nucleated Red Blood Cells % 3.9 H Neutrophils # 12.2 H Lymphocytes # 1.1 Monocytes # 1.6 H Eosinophils # 0.0 Basophils # 0.0 Nucleated Red Blood Cells # 0.6 H Prothrombin Time 22.0 H Prothrombin Time Ratio 1.7 INR International Normalized Ratio 1.90 Sodium Level 143 Potassium Level 4.0 Chloride Level 107 Carbon Dioxide Level 16 L Anion Gap 24 H Blood Urea Nitrogen 85 H Creatinine 5.74 H Glucose Level 236 H Calcium Level 5.7 *L Magnesium Level 2.1 Total Bilirubin 1.5 H Direct Bilirubin 1.10 H Indirect Bilirubin 0.4 Aspartate Amino Transf (AST/SGOT) 1498 H Alanine Aminotransferase (ALT/SGPT) 2080 H Alkaline Phosphatase 209 H Total Protein 5.4 L Albumin 2.7 L Globulin 2.70 Albumin/Globulin Ratio 1.00 Test 09/26/16 07:00 09/26/16 08:50 09/26/16 14:25 09/26/16 17:58 Blood Gas Specimen Source Blood arterial Arterial Blood Date Drawn 09/26/2016 7:46:27 AM Arterial Blood pH (Temp corrected) 7.445 Arterial Blood pCO2 (Temp correct) 35.3 Arterial Blood pO2 (Temp corrected) 69.5 L Arterial Blood HCO3 23.7 Arterial Blood Base Excess -0.1 Arterial Blood Oxygen Saturation 93.4 L Raz Test N/A Arterial Blood Gas Puncture Site A-Line Arterial Blood Carboxyhemoglobin 0.3 Arterial Blood Methemoglobin 0.4 Blood Gas A-a O2 Differential 102.9 H Oxyhemoglobin Percent 92.7 L Total Hemoglobin 9.5 L Blood Gas Temperature 37.0 Blood Gas Respiration Rate 16.0 Blood Gas Actual Respiration Rate 16 Blood Gas Modality VENT - AC FiO2 30.0 Blood Gas Tidal Volume 500.0 Blood Gas Low PEEP Setting 0 Blood Gas Notified Whom JLD Blood Gas Notified Time 09/26/2016 8:05:16 AM Bedside Glucose 287 H 272 H 246 H Medications Medications Current Medications Ticagrelor (Brilinta) 90 mg BID PO Last administered on 09/24/16t 21:16; Admin Dose 90 MG; Start 09/21/16 at 09:00; Status Future Hold Miscellaneous Information 1 ea NOTE XX ; Start 09/20/16 at 22:00 Dextrose (D50w Syringe) 25 ml Q15M PRN IV DECREASED GLUCOSE; Start 09/20/16 at 22:00 Glucose (Glutose) 15 gm Q15M PRN BUCCAL DECREASED GLUCOSE; Start 09/20/16 at 22 :00 Acetaminophen (Tylenol Liquid) 650 mg Q4H PRN NGT PAIN AND OR ELEVATED TEMP Last administered on 09/22/16 05:41; Admin Dose 650 MG; Start 09/21/16 at 02:00 Eye Lubricant (Artificial Tears Oph) 2 drop QID BOTH EYES Last administered on 09/26/16 17:56; Admin Dose 2 DROP; Start 09/21/16 at 09:00 Atorvastatin Calcium (Lipitor) 80 mg HS NGT Last administered on 09/25/16 20: 28; Admin Dose 80 MG; Start 09/22/16 at 21:00 Insulin Aspart NOVOLOG *MILD* ALGORI... Q4 SC Last administered on 09/26/16 17 :59; Admin Dose 3 UNIT; Start 09/25/16 at 13:00 Bumetanide/ Dextrose (Bumex/D5W) 250 ml @ 10 mls/hr Q24H IV Last administered on 09/25/16 17:21; Admin Dose 10 MLS/HR; Start 09/25/16 at 16:00 Pantoprazole (Protonix Iv) 40 mg AM IV ; Start 09/26/16 at 09:00 Epoetin Raj 59764 units 10,000 units TuThSa@17 SC Last administered on 17:57; Admin Dose 10,000 UNITS; Start 09/26/16 at 17:00 Piperacillin Sod/ Tazobactam Sod (Zosyn 3.375gm/ 100 ml (Pmx)) 100 ml @ 25 mls/ hr BID@02,14 IVPB ; Start 09/27/16 at 02:00 IV Flush (NS 10 ml) 10 ml PRN PRN IV IV PROTOCOL; Start 09/26/16 at 17:30 Insulin Glargine 30 unit 30 unit DAILY@08 SC ; Start 09/27/16 at 08:00; Status UNV Calcium Gluconate 1 gm/Sodium Chloride 1,010 ml @ 60 mls/hr [id number] IV ; Start 09/26/16 at 18:00; Status UNV Calcium Gluconate/ Sodium Chloride (Ca Gluc/NS) 120 ml @ 60 mls/hr ONCE ONCE IVPB ; Start 09/26/16 at 18:00; Stop 09/26/16 at 19:59; Status UNV Fluconazole (Diflucan) 150 mg ONCE ONCE NGT ; Start 09/26/16 at 18:30; Stop at 18:31; Status UNV SHAMA LOPEZ MD Sep 26, 2016 18:27
--- NOTE | 2016-09-26 18:36 | PN ---
Date/Time of Note Date/Time of Note DATE: 09/26/16 TIME: 18:29 Assessment/Plan VTE Prophylaxis VTE Prophylaxis Intervention: contraindicated VTE Contraindication Reason: bleeding Lines/Catheters IV Catheter Type (from Nrsg): PICC Line Central line still needed: No Urinary Cath still in place: Yes Reason Cath still needed: other (indicate) (ICU BED BOUND STILL) Assessment/Plan Assessment/Plan 1. LOW CALC 2. ENCEPHALOPATHY--SLOW AWAKENING 3. S/P STEMI--S/P RCA STENT 4. [place] 5. ANEMIA BETTER 6. BP BETTER 7. WORSE DM ---PER PULM ---PER CARDS ---PER RENAL ---PER GI ---INC LANTUS TO 30U ---CHANGE IVF TO 1/2 NS W/ CALC ---EXTRA CALC SUPP ---CONT BEDSIDE STIMULATION TO WAKE PT MORE, FAM OK TO STAY W/ PT AT ALWAYS ---REMAINS CHEM CODE ONLY & CONT ALL CARE Subjective 24 Hr Interval Summary Subjective hx not possible: pt non-verbal (INTUBATED) Exam/Review of Systems Vital Signs Vitals Vital Signs Date Time Temp Pulse Resp B/P Pulse Ox O2 Delivery O2 Flow Rate FiO2 09/26/16 17:58 107 16 100 30 09/26/16 17:00 106/53 Mechanical Ventilator 09/26/16 12:00 98.4 Intake and Output 09/25/16 09/25/16 09/26/16 15:00 23:00 07:00 Intake Total 970 ml 580 ml 660 ml Output Total 145 ml 387 ml 897 ml Balance 825 ml 193 ml -237 ml Exam Constitutional: other (SLIGHT BODY RESPONSES TO VOCAL COMMANDS) Respiratory: diminished breath sounds Cardiovascular: diastolic murmur Extremities: other (STILL HAS FEMORAL LINE IN PLACE) Results Result Diagram: 09/26/16 0400 09/26/16 0400 Results 24 hrs Laboratory Tests Test 09/25/16 20:32 09/26/16 00:48 09/26/16 04:00 09/26/16 05:03 Bedside Glucose 207 229 H 269 H White Blood Count 15.7 H Red Blood Count 3.68 #L Hemoglobin 10.2 #L Hematocrit 31.6 #L Mean Corpuscular Volume 85.9 Mean Corpuscular Hemoglobin 27.7 L Mean Corpuscular Hemoglobin Concent 32.3 Red Cell Distribution Width 15.9 H Platelet Count 216 Mean Platelet Volume 10.7 H Neutrophils % 77.3 H Lymphocytes % 6.7 L Monocytes % 9.9 Eosinophils % 0.3 Basophils % 0.1 Nucleated Red Blood Cells % 3.9 H Neutrophils # 12.2 H Lymphocytes # 1.1 Monocytes # 1.6 H Eosinophils # 0.0 Basophils # 0.0 Nucleated Red Blood Cells # 0.6 H Prothrombin Time 22.0 H Prothrombin Time Ratio 1.7 INR International Normalized Ratio 1.90 Sodium Level 143 Potassium Level 4.0 Chloride Level 107 Carbon Dioxide Level 16 L Anion Gap 24 H Blood Urea Nitrogen 85 H Creatinine 5.74 H Glucose Level 236 H Calcium Level 5.7 *L Magnesium Level 2.1 Total Bilirubin 1.5 H Direct Bilirubin 1.10 H Indirect Bilirubin 0.4 Aspartate Amino Transf (AST/SGOT) 1498 H Alanine Aminotransferase (ALT/SGPT) 2080 H Alkaline Phosphatase 209 H Total Protein 5.4 L Albumin 2.7 L Globulin 2.70 Albumin/Globulin Ratio 1.00 Test 09/26/16 07:00 09/26/16 08:50 09/26/16 14:25 09/26/16 17:58 Blood Gas Specimen Source Blood arterial Arterial Blood Date Drawn 09/26/2016 7:46:27 AM Arterial Blood pH (Temp corrected) 7.445 Arterial Blood pCO2 (Temp correct) 35.3 Arterial Blood pO2 (Temp corrected) 69.5 L Arterial Blood HCO3 23.7 Arterial Blood Base Excess -0.1 Arterial Blood Oxygen Saturation 93.4 L Raz Test N/A Arterial Blood Gas Puncture Site A-Line Arterial Blood Carboxyhemoglobin 0.3 Arterial Blood Methemoglobin 0.4 Blood Gas A-a O2 Differential 102.9 H Oxyhemoglobin Percent 92.7 L Total Hemoglobin 9.5 L Blood Gas Temperature 37.0 Blood Gas Respiration Rate 16.0 Blood Gas Actual Respiration Rate 16 Blood Gas Modality VENT - AC FiO2 30.0 Blood Gas Tidal Volume 500.0 Blood Gas Low PEEP Setting 0 Blood Gas Notified Whom JLD Blood Gas Notified Time 09/26/2016 8:05:16 AM Bedside Glucose 287 H 272 H 246 H Medications Medications Current Medications Ticagrelor (Brilinta) 90 mg BID PO Last administered on 09/24/16t 21:16; Admin Dose 90 MG; Start 09/21/16 at 09:00; Status Future Hold Miscellaneous Information 1 ea NOTE XX ; Start 09/20/16 at 22:00 Dextrose (D50w Syringe) 25 ml Q15M PRN IV DECREASED GLUCOSE; Start 09/20/16 at 22:00 Glucose (Glutose) 15 gm Q15M PRN BUCCAL DECREASED GLUCOSE; Start 09/20/16 at 22 :00 Acetaminophen (Tylenol Liquid) 650 mg Q4H PRN NGT PAIN AND OR ELEVATED TEMP Last administered on 09/22/16 05:41; Admin Dose 650 MG; Start 09/21/16 at 02:00 Eye Lubricant (Artificial Tears Oph) 2 drop QID BOTH EYES Last administered on 09/26/16 17:56; Admin Dose 2 DROP; Start 09/21/16 at 09:00 Atorvastatin Calcium (Lipitor) 80 mg HS NGT Last administered on 09/25/16 20: 28; Admin Dose 80 MG; Start 09/22/16 at 21:00 Insulin Aspart NOVOLOG *MILD* ALGORI... Q4 SC Last administered on 09/26/16 17 :59; Admin Dose 3 UNIT; Start 09/25/16 at 13:00 Bumetanide/ Dextrose (Bumex/D5W) 250 ml @ 10 mls/hr Q24H IV Last administered on 09/25/16 17:21; Admin Dose 10 MLS/HR; Start 09/25/16 at 16:00 Pantoprazole (Protonix Iv) 40 mg AM IV ; Start 09/26/16 at 09:00 Epoetin Raj 54060 units 10,000 units TuThSa@17 SC Last administered on 17:57; Admin Dose 10,000 UNITS; Start 09/26/16 at 17:00 Piperacillin Sod/ Tazobactam Sod (Zosyn 3.375gm/ 100 ml (Pmx)) 100 ml @ 25 mls/ hr BID@02,14 IVPB ; Start 09/27/16 at 02:00 IV Flush (NS 10 ml) 10 ml PRN PRN IV IV PROTOCOL; Start 09/26/16 at 17:30 Insulin Glargine 30 unit 30 unit DAILY@08 SC ; Start 09/27/16 at 08:00; Status UNV Calcium Gluconate 1 gm/Sodium Chloride 1,010 ml @ 60 mls/hr [id number] IV ; Start 09/26/16 at 18:00; Status UNV Calcium Gluconate/ Sodium Chloride (Ca Gluc/NS) 120 ml @ 60 mls/hr ONCE ONCE IVPB ; Start 09/26/16 at 18:00; Stop 09/26/16 at 19:59; Status UNV Fluconazole (Diflucan) 150 mg ONCE ONCE NGT ; Start 09/26/16 at 18:30; Stop at 18:31; Status UNV SHAMA LOPEZ MD Sep 26, 2016 18:36
[2016-09-26] MEDS ORDERED: CALCIUM GLUCONATE 10% 2 GM in SOD CHLORIDE 0.9% 100 ML IVPB ONE (20:00)
[2016-09-26] MEDS ORDERED: FLUCONAZOLE 150 MG TAB NGT ONE (20:00)
[2016-09-26] MEDS: ATORVASTATIN 80 MG TAB NGT SCH (20:39)
[2016-09-26] MEDS ORDERED: SOD CHLORIDE 0.45% IV SCH ×2 (22:00→23:30)
[2016-09-26] MEDS ORDERED: CALCIUM GLUCONATE IV SCH ×2 (22:00→23:30)
[2016-09-27] VITALS (34 sets, daily range): BP systolic 104–166; BP diastolic 52–81; PULSE 80–107; RESP 14–20
[2016-09-27] MEDS: INSULIN ASPART [NOVOLOG] 3 ML PEN SC SCH ×6 (01:34→20:16)
[2016-09-27] MEDS: PIPER-TAZO 3.375 GM IV (PMX) 100 ML IVPB SCH ×2 (02:23→13:37)
[2016-09-27 04:33] LABS: ADD SCAN DIFF NO
[2016-09-27 04:43] LABS: ABNORMAL IP MESSAGE 1; BASOPHILS % 0.1 % (0.0-2.0); EOSINOPHILS # 0.1 10^3/ul (0.0-0.5); HEMATOCRIT 31.6 % (37.0-47.0); HEMOGLOBIN 10.2 g/dl (12.0-16.0); LYMPHOCYTES # 1.2 10^3/ul (0.8-2.9); LYMPHOCYTES % 9.4 % (15.0-51.0); MEAN CORPUSCULAR HEMOGLOBIN 27.1 pg (29.0-33.0); MEAN CORPUSCULAR HGB CONC 32.3 g/dl (32.0-37.0); MEAN CORPUSCULAR VOLUME 83.8 fl (82.0-101.0); MEAN PLATELET VOLUME 10.4 fl (7.4-10.4); MONOCYTE # 1.6 10^3/ul (0.3-0.9); NEUTROPHIL # 9.4 10^3/ul (1.6-7.5); NEUTROPHILS % 74.3 % (39.0-77.0); NUCLEATED RED BLOOD CELLS # 0.3 10^3/ul (0.0-0.0); NUCLEATED RED BLOOD CELLS% 2.2 /100WBC (0.0-0.0); PLATELET COUNT 194 10^3/UL (140-415); RED BLOOD COUNT 3.77 10^6/ul (4.20-5.40); RED CELL DISTRIBUTION WIDTH 16.1 % (11.5-14.5); WHITE BLOOD COUNT 12.6 10^3/ul (4.8-10.8)
[2016-09-27 04:45] LABS: ALBUMIN 2.3 g/dl (3.3-4.9)
[2016-09-27 04:46] LABS: INR 1.49; PROTIME 18.1 Sec (12.2-14.2); PT RATIO 1.4
[2016-09-27 04:47] LABS: BILIRUBIN,DIRECT 0.8 mg/dl (0.00-0.20); BILIRUBIN,INDIRECT 0.4 mg/dl (0-1.1); BILIRUBIN,TOTAL 1.2 mg/dl (0.2-1.3); CREATININE 6.48 mg/dl (0.44-1.00)
[2016-09-27 04:48] LABS: ALBUMIN/GLOBULIN RATIO 0.88; CALCIUM 6.9 mg/dl (8.4-10.2); PHOSPHORUS 7.9 mg/dl (2.5-4.9); TOTAL PROTEIN 4.9 g/dl (6.1-8.1)
[2016-09-27 04:49] LABS: MAGNESIUM 2.2 mg/dl (1.7-2.5)
[2016-09-27 04:58] LABS: MONOCYTES % 12.3 % (0.0-11.0)
[2016-09-27] MEDS: ACETAMINOPHEN 650MG/20.3ML CUP NGT PRN (05:14)
--- NOTE | 2016-09-27 07:24 | RADRPT ---
PROCEDURE: Chest Radiograph. CLINICAL INDICATION: Pneumonia. CHF. TECHNIQUE: Single frontal chest radiograph. COMPARISON: Chest radiograph 09/26/2016 FINDINGS: An endotracheal tube, nasogastric tube, right upper extremity PICC remain in stable and radiographic ally appropriate position. The heart is magnified and may be mildly enlarged. This there are worse fatemeh bibasilar opacities consistent with worsening pleural effusions and/or adjacent atelectasis/inf iltrate. The upper lung zones remain clear. The bones are intact.. IMPRESSION: 1. Worsening bibasilar pleural / parenchymal disease. 2. Otherwise stable radiographic appearance of the chest compared to 09/26/2016. RPTAT: [facility] .Josue Aragon MD, MD Date Time Electronically viewed and signed by .Josue Aragon MD, on 09/27/2016 07:24 .B/
[2016-09-27 08:01] LABS: Allen Test ACCEPTAB; Arterial Base Excess -10.7 mmol/L (-3.0-3); Arterial COHb 0.3 % (0.0-3.0); Arterial Fraction of Oxyhgb 95.2 % (93.0-99.0); Arterial HCO3 13.9 mmol/L (22.0-26.0); Arterial MetHb 0.5 % (0.0-1.5); Arterial Total Hemglobin 11.8 g/dl (12.0-18.0); Blood Gas Low PEEP Setting 0 cmH2O; MODE VENT - AC
[2016-09-27] MEDS: CLOPIDOGREL 75 MG TAB NGT SCH (09:01)
[2016-09-27] MEDS: PANTOPRAZOLE 40 MG INJ IV SCH (09:01)
[2016-09-27] MEDS: ASPIRIN 81 MG TAB NGT SCH (09:01)
[2016-09-27] MEDS: ARTIFICIAL TEARS 15 ML OPH BOTH EYES SCH ×4 (09:02→20:15)
[2016-09-27] MEDS: INSULIN GLARGINE [LANtus] 3 ML PEN SC SCH (09:54)
--- NOTE | 2016-09-27 10:33 | CONS ---
Date/Time of Note Date/Time of Note DATE: 09/27/16 TIME: 10:29 Assessment/Plan Assessment/Plan Additional Assessment/Plan Ventilator settings are AC of 16, tidal volume 500, PEEP of 0, 30% FiO2. Chest x-ray was reviewed from today which is showing bilateral pleural effusions. Assessment recommendations; 1. Patient admitted for acute IN and respiratory failure. 2. Acute renal failure, with increased serum creatinine, however patient has excellent urine output over the last 24 hours. 3. Possibly aspiration pneumonia. 4. Some element of encephalopathy with interval improvement as well. Continue current supportive care. The patient was briefly assessed on CPAP mode at bedside and currently has good weaning parameters. However before patient could be weaned off from ventilator , renal function needs to improve as well as generalized edema as well as pleural effusions need to improve as well. Consultation Date/Type/Reason Admit Date/Time Sep 20, 2016 at 19:21 Initial Consult Date 09/23/16 Type of Consultation: Pulmonary/critical care Referring Provider: ZANDRA ROBISON MD, [facility] 24 HR Interval Summary Free Text/Dictation Patient condition remains critical but she is making progress. Mentally patient is markedly improved. Opens eyes readily on command moves all 4 extremities. Has remained hemodynamically stable now off pressor support. Abdomen exam; elderly lady, or intubated, awake. Currently in no distress. Exam/Review of Systems Vital Signs Vitals Vital Signs Date Time Temp Pulse Resp B/P Pulse Ox O2 Delivery O2 Flow Rate FiO2 09/27/16 09:00 100 18 159/71 95 CPAP Mechanical Ventilator 09/27/16 08:50 30 09/27/16 08:00 96.8 Intake and Output 09/26/16 09/26/16 09/27/16 15:00 23:00 07:00 Intake Total 720 ml 440 ml 860 ml Output Total 275 ml 172 ml 1701 ml Balance 445 ml 268 ml -841 ml Exam HEENT examination; supple neck, positive JVD. No lymphadenopathy. Orally intubated. No neck masses. There is bilateral subconjunctival edema present. Chest examination; diminished breath on lung bases bilaterally. Upper lobes are clear. S1-S2 audible, no murmurs. Regular rhythm. Abdomen examination; soft, no organomegaly. Bowel sounds audible. Extremity exam is; 1+ anasarca. Pulses 1+ bilaterally. COLOR GRINDER examination; patient is awake follows simple commands. No obvious focal motor deficit. Results Result Diagram: 09/27/16 0400 09/27/16 0400 Results 24 hrs Laboratory Tests Test 09/26/16 14:25 09/26/16 17:58 09/26/16 20:42 09/27/16 01:30 Bedside Glucose 272 H 246 H 240 H 224 H Test 09/27/16 04:00 09/27/16 05:28 09/27/16 07:00 09/27/16 08:54 White Blood Count 12.6 H Red Blood Count 3.77 L Hemoglobin 10.2 L Hematocrit 31.6 L Mean Corpuscular Volume 83.8 Mean Corpuscular Hemoglobin 27.1 L Mean Corpuscular Hemoglobin Concent 32.3 Red Cell Distribution Width 16.1 H Platelet Count 194 Mean Platelet Volume 10.4 Neutrophils % 74.3 Lymphocytes % 9.4 L Monocytes % 12.3 H Eosinophils % 1.0 Basophils % 0.1 Nucleated Red Blood Cells % 2.2 H Neutrophils # 9.4 H Lymphocytes # 1.2 Monocytes # 1.6 H Eosinophils # 0.1 Basophils # 0.0 Nucleated Red Blood Cells # 0.3 H Prothrombin Time 18.1 H Prothrombin Time Ratio 1.4 INR International Normalized Ratio 1.49 Sodium Level 144 Potassium Level 4.0 Chloride Level 108 Carbon Dioxide Level 18 L Anion Gap 22 H Blood Urea Nitrogen 97 H Creatinine 6.48 H Glucose Level 229 H Calcium Level 6.9 L Phosphorus Level 7.9 H Magnesium Level 2.2 Total Bilirubin 1.2 Direct Bilirubin 0.80 #H Indirect Bilirubin 0.4 Aspartate Amino Transf (AST/SGOT) 1118 H Alanine Aminotransferase (ALT/SGPT) 1564 H Alkaline Phosphatase 217 H Total Protein 4.9 L Albumin 2.3 L Globulin 2.60 Albumin/Globulin Ratio 0.88 Bedside Glucose 244 H 239 H Blood Gas Specimen Source Blood arterial Arterial Blood Date Drawn 09/27/2016 7:28:00 AM Arterial Blood pH (Temp corrected) 7.321 L Arterial Blood pCO2 (Temp correct) 27.5 L Arterial Blood pO2 (Temp corrected) 92.6 Arterial Blood HCO3 13.9 L Arterial Blood Base Excess -10.7 L Arterial Blood Oxygen Saturation 96.0 Raz Test ACCEPTAB Arterial Blood Gas Puncture Site A-Line Arterial Blood Carboxyhemoglobin 0.3 Arterial Blood Methemoglobin 0.5 Blood Gas A-a O2 Differential 89.0 H Oxyhemoglobin Percent 95.2 Total Hemoglobin 11.8 L Blood Gas Temperature 37.0 Blood Gas Respiration Rate 16.0 Blood Gas Actual Respiration Rate 17 Blood Gas Modality VENT - AC FiO2 30.0 Blood Gas Tidal Volume 500.0 Blood Gas Low PEEP Setting 0 Blood Gas Notified Whom JLD Blood Gas Notified Time 09/27/2016 7:40:00 AM Medications Medications Current Medications Ticagrelor (Brilinta) 90 mg BID PO Last administered on 09/24/16 21:16; Admin Dose 90 MG; Start 09/21/16 at 09:00; Status Future Hold Miscellaneous Information 1 ea NOTE XX ; Start 09/20/16 at 22:00 Glucose (Glutose) 15 gm Q15M PRN PO DECREASED GLUCOSE; Start 09/20/16 at 22:00 Glucose (Glutose) 22.5 gm Q15M PRN PO DECREASED GLUCOSE; Start 09/20/16 at 22: 00 Glucagon (Glucagen) 1 mg Q15M PRN IM DECREASED GLUCOSE; Start 09/20/16 at 22:00 Glucose (Glutose) 15 gm Q15M PRN BUCCAL DECREASED GLUCOSE; Start 09/20/16 at 22 :00 Acetaminophen (Tylenol Liquid) 650 mg Q4H PRN NGT PAIN AND OR ELEVATED TEMP Last administered on 09/27/16 05:14; Admin Dose 650 MG; Start 09/21/16 at 02:00 Eye Lubricant (Artificial Tears Oph) 2 drop QID BOTH EYES Last administered on 09/27/16 09:02; Admin Dose 2 DROP; Start 09/21/16 at 09:00 Dextrose (D50w Syringe) 25 ml Q15M PRN IV Till BS 80 mg/dL or above x2; Start 09/21/16 at 08:00 Dextrose (D50w Syringe) 50 ml Q15M PRN IV Till BS 80 mg/dL or above x2; Start 09/21/16 at 08:00 Atorvastatin Calcium (Lipitor) 80 mg HS NGT Last administered on 09/26/16 20: 39; Admin Dose 80 MG; Start 09/22/16 at 21:00 Insulin Aspart NOVOLOG *MILD* ALGORI... Q4 SC Last administered on 09/27/16 08 :58; Admin Dose 3 UNIT; Start 09/25/16 at 13:00 Bumetanide/ Dextrose (Bumex/D5W) 250 ml @ 10 mls/hr Q24H IV Last administered on 09/25/16 17:21; Admin Dose 10 MLS/HR; Start 09/25/16 at 16:00 Pantoprazole (Protonix Iv) 40 mg AM IV Last administered on 09/27/16 09:01; Admin Dose 40 MG; Start 09/26/16 at 09:00 Epoetin Raj 72769 units 10,000 units TuThSa@17 SC Last administered on 17:57; Admin Dose 10,000 UNITS; Start 09/26/16 at 17:00 Piperacillin Sod/ Tazobactam Sod (Zosyn 3.375gm/ 100 ml (Pmx)) 100 ml @ 25 mls/ hr BID@02,14 IVPB Last administered on 09/27/16 02:23; Admin Dose 25 MLS/HR; Start 09/27/16 at 02:00 IV Flush (NS 10 ml) 10 ml PRN PRN IV IV PROTOCOL; Start 09/26/16 at 17:30 Insulin Glargine 30 unit 30 unit DAILY@08 SC Last administered on 09/27/16 09: 54; Admin Dose 30 UNIT; Start 09/27/16 at 08:00 Calcium Gluconate/ Sodium Chloride (Ca Gluc/1/2 NS) 1,000 ml @ 60 mls/hr [id number] IV Last administered on 09/26/16 23:47; Admin Dose 60 MLS/HR; Start at 23:30 Aspirin (Aspirin) 81 mg DAILY NGT Last administered on 09/27/16 09:01; Admin Dose 81 MG; Start 09/27/16 at 09:00 Clopidogrel Bisulfate (plaVIX) 75 mg DAILY NGT Last administered on 09/27/16 09:01; Admin Dose 75 MG; Start 09/27/16 at 09:00 ADIS CAMACHO 24, 2017 10:33
[2016-09-27 11:22] LABS: AADO2 Arterial 84.6 mmHg (7.0-24.0); Arterial Base Excess -12.1 mmol/L (-3.0-3); Arterial COHb 0.3 % (0.0-3.0); Arterial Fraction of Oxyhgb 94.6 % (93.0-99.0); Arterial MetHb 0.5 % (0.0-1.5); Arterial Total Hemglobin 11.9 g/dl (12.0-18.0); Blood Gas PS 10; MODE VENT - CPAP
--- NOTE | 2016-09-27 11:36 | CONS ---
Date/Time of Note Date/Time of Note DATE: 09/27/16 TIME: 11:21 Assessment/Plan Assessment/Plan Chief Complaint/Hosp Course 1. Acute Renal Failure due to ATN , nonoliguric . Renal ultrasound shows echogenic kidneys , suggestive of CKD . Patient responded to Bumex drip and urine output has increased . Her renal function has decreased. I am encouraged that her renal function could improve with her now being nonoliguric and responding to the Bumex drip. Will continue Bumex drip for now, decrease IV fluids, increase tube feeding as tolerated. I did discuss the current condition with the patient's family. We discussed the possibility of dialysis. They are more in favor of conservative management at this time. If things were to change I will readdress these issues with the family. 2. 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 . 3. liver enzyme elevation due to anoxia 4. She was hypotensive on pressors. Her blood pressure is now normal and she is off pressors. 5. hypocalcemia/hypoalbuminemia , her calcium level has increased. 6. GI bleeding , will transfuse blood , bleeding seems to have stopped 7. peripheral vascular disease , with one blue L toe . Problems: Consultation Date/Type/Reason Admit Date/Time Sep 20, 2016 at 19:21 Initial Consult Date 09/23/16 Type of Consultation: Pulmonary/critical care Referring Provider: ZANDRA ROBISON MD, [facility] 24 HR Interval Summary Free Text/Dictation She is in the intensive care unit intubated on a ventilator. She is awake and responsive to commands. Subjective hx not possible: pt non-verbal Exam/Review of Systems Vital Signs Vitals Vital Signs Date Time Temp Pulse Resp B/P Pulse Ox O2 Delivery O2 Flow Rate FiO2 09/27/16 09:00 100 18 159/71 95 CPAP Mechanical Ventilator 09/27/16 08:50 30 09/27/16 08:00 96.8 Intake and Output 09/26/16 09/26/16 09/27/16 15:00 23:00 07:00 Intake Total 720 ml 440 ml 860 ml Output Total 275 ml 172 ml 1701 ml Balance 445 ml 268 ml -841 ml Exam Constitutional: alert, non-verbal Respiratory: clear to auscultation, diminished breath sounds Cardiovascular: regular rate and rhythm Gastrointestinal: soft Extremities: edema Results Result Diagram: 09/27/16 0400 09/27/16 0400 Results 24 hrs Laboratory Tests Test 09/26/16 14:25 09/26/16 17:58 09/26/16 20:42 09/27/16 01:30 Bedside Glucose 272 H 246 H 240 H 224 H Test 09/27/16 04:00 09/27/16 05:28 09/27/16 07:00 09/27/16 08:54 White Blood Count 12.6 H Red Blood Count 3.77 L Hemoglobin 10.2 L Hematocrit 31.6 L Mean Corpuscular Volume 83.8 Mean Corpuscular Hemoglobin 27.1 L Mean Corpuscular Hemoglobin Concent 32.3 Red Cell Distribution Width 16.1 H Platelet Count 194 Mean Platelet Volume 10.4 Neutrophils % 74.3 Lymphocytes % 9.4 L Monocytes % 12.3 H Eosinophils % 1.0 Basophils % 0.1 Nucleated Red Blood Cells % 2.2 H Neutrophils # 9.4 H Lymphocytes # 1.2 Monocytes # 1.6 H Eosinophils # 0.1 Basophils # 0.0 Nucleated Red Blood Cells # 0.3 H Prothrombin Time 18.1 H Prothrombin Time Ratio 1.4 INR International Normalized Ratio 1.49 Sodium Level 144 Potassium Level 4.0 Chloride Level 108 Carbon Dioxide Level 18 L Anion Gap 22 H Blood Urea Nitrogen 97 H Creatinine 6.48 H Glucose Level 229 H Calcium Level 6.9 L Phosphorus Level 7.9 H Magnesium Level 2.2 Total Bilirubin 1.2 Direct Bilirubin 0.80 #H Indirect Bilirubin 0.4 Aspartate Amino Transf (AST/SGOT) 1118 H Alanine Aminotransferase (ALT/SGPT) 1564 H Alkaline Phosphatase 217 H Total Protein 4.9 L Albumin 2.3 L Globulin 2.60 Albumin/Globulin Ratio 0.88 Bedside Glucose 244 H 239 H Blood Gas Specimen Source Blood arterial Arterial Blood Date Drawn 09/27/2016 7:28:00 AM Arterial Blood pH (Temp corrected) 7.321 L Arterial Blood pCO2 (Temp correct) 27.5 L Arterial Blood pO2 (Temp corrected) 92.6 Arterial Blood HCO3 13.9 L Arterial Blood Base Excess -10.7 L Arterial Blood Oxygen Saturation 96.0 Raz Test ACCEPTAB Arterial Blood Gas Puncture Site A-Line Arterial Blood Carboxyhemoglobin 0.3 Arterial Blood Methemoglobin 0.5 Blood Gas A-a O2 Differential 89.0 H Oxyhemoglobin Percent 95.2 Total Hemoglobin 11.8 L Blood Gas Temperature 37.0 Blood Gas Respiration Rate 16.0 Blood Gas Actual Respiration Rate 17 Blood Gas Modality VENT - AC FiO2 30.0 Blood Gas Tidal Volume 500.0 Blood Gas Low PEEP Setting 0 Blood Gas Notified Whom JLD Blood Gas Notified Time 09/27/2016 7:40:00 AM Medications Medications Current Medications Ticagrelor (Brilinta) 90 mg BID PO Last administered on 09/24/16 21:16; Admin Dose 90 MG; Start 09/21/16 at 09:00; Status Future Hold Miscellaneous Information 1 ea NOTE XX ; Start 09/20/16 at 22:00 Glucose (Glutose) 15 gm Q15M PRN PO DECREASED GLUCOSE; Start 09/20/16 at 22:00 Glucose (Glutose) 22.5 gm Q15M PRN PO DECREASED GLUCOSE; Start 09/20/16 at 22: 00 Glucagon (Glucagen) 1 mg Q15M PRN IM DECREASED GLUCOSE; Start 09/20/16 at 22:00 Glucose (Glutose) 15 gm Q15M PRN BUCCAL DECREASED GLUCOSE; Start 09/20/16 at 22 :00 Acetaminophen (Tylenol Liquid) 650 mg Q4H PRN NGT PAIN AND OR ELEVATED TEMP Last administered on 09/27/16 05:14; Admin Dose 650 MG; Start 09/21/16 at 02:00 Eye Lubricant (Artificial Tears Oph) 2 drop QID BOTH EYES Last administered on 09/27/16 09:02; Admin Dose 2 DROP; Start 09/21/16 at 09:00 Dextrose (D50w Syringe) 25 ml Q15M PRN IV Till BS 80 mg/dL or above x2; Start 09/21/16 at 08:00 Dextrose (D50w Syringe) 50 ml Q15M PRN IV Till BS 80 mg/dL or above x2; Start 09/21/16 at 08:00 Atorvastatin Calcium (Lipitor) 80 mg HS NGT Last administered on 09/26/16 20: 39; Admin Dose 80 MG; Start 09/22/16 at 21:00 Insulin Aspart NOVOLOG *MILD* ALGORI... Q4 SC Last administered on 09/27/16 08 :58; Admin Dose 3 UNIT; Start 09/25/16 at 13:00 Bumetanide/ Dextrose (Bumex/D5W) 250 ml @ 10 mls/hr Q24H IV Last administered on 09/25/16 17:21; Admin Dose 10 MLS/HR; Start 09/25/16 at 16:00 Pantoprazole (Protonix Iv) 40 mg AM IV Last administered on 09/27/16 09:01; Admin Dose 40 MG; Start 09/26/16 at 09:00 Epoetin Raj 90794 units 10,000 units TuThSa@17 SC Last administered on 17:57; Admin Dose 10,000 UNITS; Start 09/26/16 at 17:00 Piperacillin Sod/ Tazobactam Sod (Zosyn 3.375gm/ 100 ml (Pmx)) 100 ml @ 25 mls/ hr BID@02,14 IVPB Last administered on 09/27/16 02:23; Admin Dose 25 MLS/HR; Start 09/27/16 at 02:00 IV Flush (NS 10 ml) 10 ml PRN PRN IV IV PROTOCOL; Start 09/26/16 at 17:30 Insulin Glargine 30 unit 30 unit DAILY@08 SC Last administered on 09/27/16 09: 54; Admin Dose 30 UNIT; Start 09/27/16 at 08:00 Calcium Gluconate/ Sodium Chloride (Ca Gluc/1/2 NS) 1,000 ml @ 60 mls/hr [id number] IV Last administered on 09/26/16 23:47; Admin Dose 60 MLS/HR; Start at 23:30 Aspirin (Aspirin) 81 mg DAILY NGT Last administered on 09/27/16 09:01; Admin Dose 81 MG; Start 09/27/16 at 09:00 Clopidogrel Bisulfate (plaVIX) 75 mg DAILY NGT Last administered on 09/27/16 09:01; Admin Dose 75 MG; Start 09/27/16 at 09:00 DAMIR MARTINEZ MD Sep 27, 2016 11:36
--- NOTE | 2016-09-27 12:22 | CONS ---
Date/Time of Note Date/Time of Note DATE: 09/27/16 TIME: 12:17 Consult Date/Type/Reason Admit Date/Time Sep 20, 2016 at 19:21 Initial Consult Date 09/23/16 Type of Consultation: GI Ordering Provider: ZANDRA ROBISON MD, [facility] Subjective Intubated, but seems to respond to commands Tolerating G tube feeding No overt GI bleeding Objective Vital Signs Date Time Temp Pulse Resp B/P Pulse Ox O2 Delivery O2 Flow Rate FiO2 09/27/16 09:00 100 18 159/71 95 CPAP Mechanical Ventilator 09/27/16 08:50 30 09/27/16 08:00 96.8 Chest: respirator breath sounds Cardiac: no m,r,g Abdomen: soft, non tender Intake and Output 09/26/16 09/26/16 09/27/16 15:00 23:00 07:00 Intake Total 720 ml 440 ml 860 ml Output Total 275 ml 172 ml 1701 ml Balance 445 ml 268 ml -841 ml Results/Medications Result Diagram: 09/27/16 0400 09/27/16 0400 Results 24 hrs Laboratory Tests Test 09/26/16 14:25 09/26/16 17:58 09/26/16 20:42 09/27/16 01:30 Bedside Glucose 272 H 246 H 240 H 224 H Test 09/27/16 04:00 09/27/16 05:28 09/27/16 07:00 09/27/16 08:54 White Blood Count 12.6 H Red Blood Count 3.77 L Hemoglobin 10.2 L Hematocrit 31.6 L Mean Corpuscular Volume 83.8 Mean Corpuscular Hemoglobin 27.1 L Mean Corpuscular Hemoglobin Concent 32.3 Red Cell Distribution Width 16.1 H Platelet Count 194 Mean Platelet Volume 10.4 Neutrophils % 74.3 Lymphocytes % 9.4 L Monocytes % 12.3 H Eosinophils % 1.0 Basophils % 0.1 Nucleated Red Blood Cells % 2.2 H Neutrophils # 9.4 H Lymphocytes # 1.2 Monocytes # 1.6 H Eosinophils # 0.1 Basophils # 0.0 Nucleated Red Blood Cells # 0.3 H Prothrombin Time 18.1 H Prothrombin Time Ratio 1.4 INR International Normalized Ratio 1.49 Sodium Level 144 Potassium Level 4.0 Chloride Level 108 Carbon Dioxide Level 18 L Anion Gap 22 H Blood Urea Nitrogen 97 H Creatinine 6.48 H Glucose Level 229 H Calcium Level 6.9 L Phosphorus Level 7.9 H Magnesium Level 2.2 Total Bilirubin 1.2 Direct Bilirubin 0.80 #H Indirect Bilirubin 0.4 Aspartate Amino Transf (AST/SGOT) 1118 H Alanine Aminotransferase (ALT/SGPT) 1564 H Alkaline Phosphatase 217 H Total Protein 4.9 L Albumin 2.3 L Globulin 2.60 Albumin/Globulin Ratio 0.88 Bedside Glucose 244 H 239 H Blood Gas Specimen Source Blood arterial Arterial Blood Date Drawn 09/27/2016 7:28:00 AM Arterial Blood pH (Temp corrected) 7.321 L Arterial Blood pCO2 (Temp correct) 27.5 L Arterial Blood pO2 (Temp corrected) 92.6 Arterial Blood HCO3 13.9 L Arterial Blood Base Excess -10.7 L Arterial Blood Oxygen Saturation 96.0 Raz Test ACCEPTAB Arterial Blood Gas Puncture Site A-Line Arterial Blood Carboxyhemoglobin 0.3 Arterial Blood Methemoglobin 0.5 Blood Gas A-a O2 Differential 89.0 H Oxyhemoglobin Percent 95.2 Total Hemoglobin 11.8 L Blood Gas Temperature 37.0 Blood Gas Respiration Rate 16.0 Blood Gas Actual Respiration Rate 17 Blood Gas Modality VENT - AC FiO2 30.0 Blood Gas Tidal Volume 500.0 Blood Gas Low PEEP Setting 0 Blood Gas Notified Whom SADAD Blood Gas Notified Time 09/27/2016 7:40:00 AM Test 09/27/16 10:56 Blood Gas Specimen Source Blood arterial Arterial Blood Date Drawn 09/27/2016 11:10:48 AM Arterial Blood pH (Temp corrected) 7.247 *L Arterial Blood pCO2 (Temp correct) 33.0 L Arterial Blood pO2 (Temp corrected) 90.5 Arterial Blood HCO3 14.0 L Arterial Blood Base Excess -12.1 L Arterial Blood Oxygen Saturation 95.4 Raz Test N/A Arterial Blood Gas Puncture Site A-Line Arterial Blood Carboxyhemoglobin 0.3 Arterial Blood Methemoglobin 0.5 Blood Gas A-a O2 Differential 84.6 H Oxyhemoglobin Percent 94.6 Total Hemoglobin 11.9 L Blood Gas Temperature 37.0 Blood Gas Actual Respiration Rate 26 Blood Gas Modality VENT - CPAP FiO2 30.0 Blood Gas Low PEEP Setting 5.0 Blood Gas Pressure Support 10 Blood Gas Critical Value Read Back R NAVID RN Blood Gas Notified Whom SADAD Blood Gas Notified Time 09/27/2016 11:22:53 AM Medications Current Medications Ticagrelor (Brilinta) 90 mg BID PO Last administered on 09/24/16 21:16; Admin Dose 90 MG; Start 09/21/16 at 09:00; Status Future Hold Miscellaneous Information 1 ea NOTE XX ; Start 09/20/16 at 22:00 Glucose (Glutose) 15 gm Q15M PRN PO DECREASED GLUCOSE; Start 09/20/16 at 22:00 Glucose (Glutose) 22.5 gm Q15M PRN PO DECREASED GLUCOSE; Start 09/20/16 at 22: 00 Glucagon (Glucagen) 1 mg Q15M PRN IM DECREASED GLUCOSE; Start 09/20/16 at 22:00 Glucose (Glutose) 15 gm Q15M PRN BUCCAL DECREASED GLUCOSE; Start 09/20/16 at 22 :00 Acetaminophen (Tylenol Liquid) 650 mg Q4H PRN NGT PAIN AND OR ELEVATED TEMP Last administered on 09/27/16 05:14; Admin Dose 650 MG; Start 09/21/16 at 02:00 Eye Lubricant (Artificial Tears Oph) 2 drop QID BOTH EYES Last administered on 09/27/16 09:02; Admin Dose 2 DROP; Start 09/21/16 at 09:00 Dextrose (D50w Syringe) 25 ml Q15M PRN IV Till BS 80 mg/dL or above x2; Start 09/21/16 at 08:00 Dextrose (D50w Syringe) 50 ml Q15M PRN IV Till BS 80 mg/dL or above x2; Start 09/21/16 at 08:00 Atorvastatin Calcium (Lipitor) 80 mg HS NGT Last administered on 09/26/16 20: 39; Admin Dose 80 MG; Start 09/22/16 at 21:00 Insulin Aspart NOVOLOG *MILD* ALGORI... Q4 SC Last administered on 09/27/16 08 :58; Admin Dose 3 UNIT; Start 09/25/16 at 13:00 Bumetanide/ Dextrose (Bumex/D5W) 250 ml @ 10 mls/hr Q24H IV Last administered on 09/25/16 17:21; Admin Dose 10 MLS/HR; Start 09/25/16 at 16:00 Pantoprazole (Protonix Iv) 40 mg AM IV Last administered on 09/27/16 09:01; Admin Dose 40 MG; Start 09/26/16 at 09:00 Epoetin Raj 58104 units 10,000 units TuThSa@17 SC Last administered on 17:57; Admin Dose 10,000 UNITS; Start 09/26/16 at 17:00 Piperacillin Sod/ Tazobactam Sod (Zosyn 3.375gm/ 100 ml (Pmx)) 100 ml @ 25 mls/ hr BID@02,14 IVPB Last administered on 09/27/16 02:23; Admin Dose 25 MLS/HR; Start 09/27/16 at 02:00 IV Flush (NS 10 ml) 10 ml PRN PRN IV IV PROTOCOL; Start 09/26/16 at 17:30 Insulin Glargine 30 unit 30 unit DAILY@08 SC Last administered on 09/27/16 09: 54; Admin Dose 30 UNIT; Start 09/27/16 at 08:00 Calcium Gluconate/ Sodium Chloride (Ca Gluc/1/2 NS) 1,000 ml @ 40 mls/hr Q24H IV Last administered on 09/26/16 23:47; Admin Dose 60 MLS/HR; Start 09/26/16 at 23:30; Stop 09/27/16 at 16:00 Aspirin (Aspirin) 81 mg DAILY NGT Last administered on 09/27/16 09:01; Admin Dose 81 MG; Start 09/27/16 at 09:00 Clopidogrel Bisulfate 75 mg 75 mg DAILY NGT Last administered on 09/27/16 09: 01; Admin Dose 75 MG; Start 09/27/16 at 09:00 Sodium Chloride (1/2 NS) 1,000 ml @ 40 mls/hr Q24H IV ; Start 09/27/16 at 16:00 Sodium Bicarbonate (Sodium Bicarbonate Tab) 650 mg TID PO ; Start 09/27/16 at 13 :00 Assessment/Plan Chief Complaint/Hosp Course Impression: 1. GI bleed - stable, no further bleeding 2. Shock Liver - note LFTs and PT returning towards normal Plan: 1. Continue IV Protonix 2. Avoid EGD unless substantial rebleed given recent NM and overall status 3. Need to be careful with medication dosing given substantial liver injury impairing metabolism of drugs 4. I will see intermittently at this time; Please call in interim if GI problems or questions arise Problems: TOMASA GLASS MD Sep 27, 2016 12:22
[2016-09-27] MEDS: NA BICARBONATE 650 MG TAB PO SCH ×2 (13:37→20:14)
--- NOTE | 2016-09-27 15:26 | PN ---
DATE: 09/27/2016 PALLIATIVE CARE SUBJECTIVE: Mrs. Danielle is awake, follows simple commands, tracks and tries to mouth her words. Family members have been at her bedside. I am waiting for her to arrive just to review her overall medical condition. However, she has received good communication by Dr. Castillo and since I have last seen her, she has been changed to a chemical code, which I believe is very appropriate. PHYSICAL EXAMINATION: She is oriented. She follows simple commands once again. Moves her arms pur posefully, tracks. PLAN: I will sit down and speak to family members once again and just update them, although I know once again she is receiving very good support from the medical staff and communication is excellent per family members. Dictated By: DYLAN GIBBONS MD, LP/JERROD Conf#: [id number] DID#: [id number]
[2016-09-27] MEDS ORDERED: SOD CHLORIDE 0.45% 1,000 ML IV SCH (16:00)
[2016-09-27] MEDS: BUMETANIDE 25 MG in DEXTROSE 5% 150 ML IV SCH (16:28)
[2016-09-27] MEDS: ATORVASTATIN 80 MG TAB NGT SCH (20:14)
[2016-09-28] VITALS (34 sets, daily range): BP systolic 99–152; BP diastolic 49–68; PULSE 77–109; RESP 16–21
[2016-09-28] MEDS: INSULIN ASPART [NOVOLOG] 3 ML PEN SC SCH ×6 (01:00→21:10)
[2016-09-28] MEDS: PIPER-TAZO 3.375 GM IV (PMX) 100 ML IVPB SCH ×2 (03:28→13:46)
[2016-09-28 04:33] LABS: ADD SCAN DIFF NO
[2016-09-28 04:35] LABS: ABNORMAL IP MESSAGE 1; BASOPHILS % 0.1 % (0.0-2.0); EOSINOPHILS # 0.2 10^3/ul (0.0-0.5); EOSINOPHILS % 1.3 % (0.0-7.0); HEMATOCRIT 32.6 % (37.0-47.0); HEMOGLOBIN 10.5 g/dl (12.0-16.0); LYMPHOCYTES # 1.3 10^3/ul (0.8-2.9); LYMPHOCYTES % 9.8 % (15.0-51.0); MEAN CORPUSCULAR HEMOGLOBIN 26.9 pg (29.0-33.0); MEAN CORPUSCULAR HGB CONC 32.2 g/dl (32.0-37.0); MEAN CORPUSCULAR VOLUME 83.6 fl (82.0-101.0); MEAN PLATELET VOLUME 10.4 fl (7.4-10.4); MONOCYTE # 1.6 10^3/ul (0.3-0.9); NEUTROPHIL # 10.1 10^3/ul (1.6-7.5); NEUTROPHILS % 74.7 % (39.0-77.0); NUCLEATED RED BLOOD CELLS # 0.2 10^3/ul (0.0-0.0); NUCLEATED RED BLOOD CELLS% 1.6 /100WBC (0.0-0.0); PLATELET COUNT 182 10^3/UL (140-415); RED CELL DISTRIBUTION WIDTH 17.4 % (11.5-14.5); WHITE BLOOD COUNT 13.5 10^3/ul (4.8-10.8)
[2016-09-28 04:49] LABS: CREATININE 6.71 mg/dl (0.44-1.00)
[2016-09-28 04:50] LABS: PHOSPHORUS 7.8 mg/dl (2.5-4.9)
[2016-09-28 04:51] LABS: MAGNESIUM 2.3 mg/dl (1.7-2.5)
[2016-09-28 05:33] LABS: ALBUMIN 2.3 g/dl (3.3-4.9)
[2016-09-28 05:34] LABS: POTASSIUM 3.5 mmol/L (3.5-5.1)
[2016-09-28 05:47] LABS: BILIRUBIN,DIRECT 0.5 mg/dl (0.00-0.20); BILIRUBIN,INDIRECT 0.3 mg/dl (0-1.1); BILIRUBIN,TOTAL 0.8 mg/dl (0.2-1.3); TOTAL PROTEIN 5.2 g/dl (6.1-8.1)
[2016-09-28 05:48] LABS: ALBUMIN/GLOBULIN RATIO 0.79
[2016-09-28] MEDS: ASPIRIN 81 MG TAB NGT SCH (08:41)
[2016-09-28] MEDS: NA BICARBONATE 650 MG TAB PO SCH ×3 (08:41→21:05)
[2016-09-28] MEDS: CLOPIDOGREL 75 MG TAB NGT SCH (08:41)
[2016-09-28] MEDS: ARTIFICIAL TEARS 15 ML OPH BOTH EYES SCH ×4 (08:41→21:02)
[2016-09-28] MEDS: PANTOPRAZOLE 40 MG INJ IV SCH (08:41)
[2016-09-28] MEDS: INSULIN GLARGINE [LANtus] 3 ML PEN SC SCH (08:43)
--- NOTE | 2016-09-28 13:25 | CONS ---
Date/Time of Note Date/Time of Note DATE: 09/28/16 TIME: 13:22 Assessment/Plan Assessment/Plan Additional Assessment/Plan Ventilator settings are AC of 16, tidal volume 500, PEEP of 0, 30% FiO2. Next Assessment recommendations; 1. The patient admitted with acute VT and acute renal failure causing respiratory failure. 2. Possibly some element of aspiration pneumonia. 3. Toxic encephalopathy. With interval improvement. 4. Worsening renal function in terms of increasing BUN and creatinine. However patient maintaining good urine output. Continue current treatment. Patient currently is not in a position to be weaned off from mechanical ventilation owing to poor renal and dialysis. Patient may need to be hemodialyzed f because of massive edema. Obtain follow- up chest x-ray tomorrow morning. Continue current antibiotics and other supportive measures. Consultation Date/Type/Reason Admit Date/Time Sep 20, 2016 at 19:21 Initial Consult Date 09/23/16 Type of Consultation: Pulmonary/critical care Referring Provider: ZANDRA ROBISON MD, [facility] 24 HR Interval Summary Free Text/Dictation Patient condition remains tenuous at best. Still requiring full ventilator support. Patient however has remained hemodynamically stable. Maintaining excellent urine output. Remains awake and alert. General exam; elderly lady, or intubated, currently in no distress. Exam/Review of Systems Vital Signs Vitals Vital Signs Date Time Temp Pulse Resp B/P Pulse Ox O2 Delivery O2 Flow Rate FiO2 09/28/16 12:00 93 09/28/16 12:00 16 124/52 97 Mechanical Ventilator 09/28/16 11:00 30 09/28/16 08:00 97.4 Intake and Output 09/27/16 09/27/16 09/28/16 15:00 23:00 07:00 Intake Total 650 ml 745 ml 940 ml Output Total 389 ml 970 ml 1067 ml Balance 261 ml -225 ml -127 ml Exam HEENT exam is; supple neck, positive JVD. Midline trachea. There is mild bilateral subconjunctival edema present. Pupils are small bilaterally. No neck masses. No thyromegaly. No neck bruits. Patient has fair dentition. Orally intubated. Chest examination; diminished but clear breath sounds bilaterally. S1-S2 audible, no murmurs. Regular rhythm. Abdomen examination; soft, protuberant. Bowel is audible. Extremity examination; 2+ anasarca. NURSE ESTHETICIAN examination; patient is awake opens eyes on name calling but has severe generalized weakness. Results Result Diagram: 09/28/16 0400 09/28/16 0400 Results 24 hrs Laboratory Tests Test 09/27/16 13:39 09/27/16 16:31 09/27/16 20:13 09/28/16 04:00 Bedside Glucose 180 170 193 White Blood Count 13.5 H Red Blood Count 3.90 L Hemoglobin 10.5 L Hematocrit 32.6 L Mean Corpuscular Volume 83.6 Mean Corpuscular Hemoglobin 26.9 L Mean Corpuscular Hemoglobin Concent 32.2 Red Cell Distribution Width 17.4 H Platelet Count 182 Mean Platelet Volume 10.4 Neutrophils % 74.7 Lymphocytes % 9.8 L Monocytes % 12.0 H Eosinophils % 1.3 Basophils % 0.1 Nucleated Red Blood Cells % 1.6 H Neutrophils # 10.1 H Lymphocytes # 1.3 Monocytes # 1.6 H Eosinophils # 0.2 Basophils # 0.0 Nucleated Red Blood Cells # 0.2 H Sodium Level 143 Potassium Level 3.5 Chloride Level 106 Carbon Dioxide Level 18 L Anion Gap 23 H Blood Urea Nitrogen 108 H Creatinine 6.71 H Glucose Level 197 Calcium Level 7.0 L Phosphorus Level 7.8 H Magnesium Level 2.3 Total Bilirubin 0.8 Direct Bilirubin 0.50 #H Indirect Bilirubin 0.3 Aspartate Amino Transf (AST/SGOT) 743 H Alanine Aminotransferase (ALT/SGPT) 1265 H Alkaline Phosphatase 291 H Total Protein 5.2 L Albumin 2.3 L Globulin 2.90 Albumin/Globulin Ratio 0.79 Test 09/28/16 04:06 09/28/16 08:40 09/28/16 12:25 Bedside Glucose 190 195 220 Medications Medications Current Medications Ticagrelor (Brilinta) 90 mg BID PO Last administered on 09/24/16t 21:16; Admin Dose 90 MG; Start 09/21/16 at 09:00; Status Future Hold Miscellaneous Information 1 ea NOTE XX ; Start 09/20/16 at 22:00 Glucose (Glutose) 15 gm Q15M PRN PO DECREASED GLUCOSE; Start 09/20/16 at 22:00 Glucose (Glutose) 22.5 gm Q15M PRN PO DECREASED GLUCOSE; Start 09/20/16 at 22: 00 Glucagon (Glucagen) 1 mg Q15M PRN IM DECREASED GLUCOSE; Start 09/20/16 at 22:00 Glucose (Glutose) 15 gm Q15M PRN BUCCAL DECREASED GLUCOSE; Start 09/20/16 at 22 :00 Acetaminophen (Tylenol Liquid) 650 mg Q4H PRN NGT PAIN AND OR ELEVATED TEMP Last administered on 09/27/16 05:14; Admin Dose 650 MG; Start 09/21/16 at 02:00 Eye Lubricant (Artificial Tears Oph) 2 drop QID BOTH EYES Last administered on 09/28/16 12:26; Admin Dose 2 DROP; Start 09/21/16 at 09:00 Dextrose (D50w Syringe) 25 ml Q15M PRN IV Till BS 80 mg/dL or above x2; Start 09/21/16 at 08:00 Dextrose (D50w Syringe) 50 ml Q15M PRN IV Till BS 80 mg/dL or above x2; Start 09/21/16 at 08:00 Atorvastatin Calcium (Lipitor) 80 mg HS NGT Last administered on 09/27/16 20: 14; Admin Dose 80 MG; Start 09/22/16 at 21:00 Insulin Aspart NOVOLOG *MILD* ALGORI... Q4 SC Last administered on 09/28/16 12 :27; Admin Dose 2 UNIT; Start 09/25/16 at 13:00 Bumetanide/ Dextrose (Bumex/D5W) 250 ml @ 10 mls/hr Q24H IV Last administered on 09/27/16 16:28; Admin Dose 10 MLS/HR; Start 09/25/16 at 16:00 Pantoprazole (Protonix Iv) 40 mg AM IV Last administered on 09/28/16 08:41; Admin Dose 40 MG; Start 09/26/16 at 09:00 Epoetin Raj 84290 units 10,000 units TuThSa@17 SC Last administered on 17:57; Admin Dose 10,000 UNITS; Start 09/26/16 at 17:00 Piperacillin Sod/ Tazobactam Sod (Zosyn 3.375gm/ 100 ml (Pmx)) 100 ml @ 25 mls/ hr BID@02,14 IVPB Last administered on 09/28/16 03:28; Admin Dose 25 MLS/HR; Start 09/27/16 at 02:00 IV Flush (NS 10 ml) 10 ml PRN PRN IV IV PROTOCOL; Start 09/26/16 at 17:30 Insulin Glargine (Lantus) 30 unit DAILY@08 SC Last administered on 09/28/16 08 :43; Admin Dose 30 UNIT; Start 09/27/16 at 08:00 Aspirin (Aspirin) 81 mg DAILY NGT Last administered on 09/28/16 08:41; Admin Dose 81 MG; Start 09/27/16 at 09:00 Clopidogrel Bisulfate 75 mg 75 mg DAILY NGT Last administered on 09/28/16 08: 41; Admin Dose 75 MG; Start 09/27/16 at 09:00 Sodium Chloride (1/2 NS) 1,000 ml @ 40 mls/hr Q24H IV Last administered on 16:28; Admin Dose 40 MLS/HR; Start 09/27/16 at 16:00 Sodium Bicarbonate (Sodium Bicarbonate Tab) 650 mg TID PO Last administered on 09/28/16 12:26; Admin Dose 650 MG; Start 09/27/16 at 13:00 ADIS CAMACHO 25, 2017 13:25
--- NOTE | 2016-09-28 13:41 | CONS ---
Date/Time of Note Date/Time of Note DATE: 09/28/16 TIME: 13:36 Assessment/Plan Assessment/Plan Chief Complaint/Hosp Course 1. Acute Renal Failure due to ATN , nonoliguric . Renal ultrasound shows echogenic kidneys , suggestive of CKD . Patient responded to Bumex drip and urine output has increased . Her renal function has decreased. I am encouraged that her renal function could improve with her now being nonoliguric and responding to the Bumex drip. Will continue Bumex drip for now, decrease IV fluids, increase tube feeding as tolerated. I did discuss the current condition with the patient's family. We discussed the possibility of dialysis. They are more in favor of conservative management at this time. If things were to change I will readdress these issues with the family. I discussed her condition with Dr Martins , pulmonary . If patients renal labs do not improve by tomorrow then will need to consider dialysis . 2. 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 . 3. liver enzyme elevation due to anoxia 4. She was hypotensive on pressors. Her blood pressure is now normal and she is off pressors. 5. hypocalcemia/hypoalbuminemia , her calcium level has increased. 6. GI bleeding , will transfuse blood , bleeding seems to have stopped 7. peripheral vascular disease , with one blue L toe . Problems: Consultation Date/Type/Reason Admit Date/Time Sep 20, 2016 at 19:21 Initial Consult Date 09/23/16 Type of Consultation: Pulmonary/critical care Referring Provider: ZANDRA ROBISON MD, [facility] 24 HR Interval Summary Free Text/Dictation Patient is in the ICU . She is intubated on ventilator . She is awake and responsive . Subjective hx not possible: pt non-verbal Exam/Review of Systems Vital Signs Vitals Vital Signs Date Time Temp Pulse Resp B/P Pulse Ox O2 Delivery O2 Flow Rate FiO2 09/28/16 12:00 93 09/28/16 12:00 16 124/52 97 Mechanical Ventilator 09/28/16 11:00 30 09/28/16 08:00 97.4 Intake and Output 09/27/16 09/27/16 09/28/16 15:00 23:00 07:00 Intake Total 650 ml 745 ml 940 ml Output Total 389 ml 970 ml 1067 ml Balance 261 ml -225 ml -127 ml Exam Constitutional: alert Respiratory: clear to auscultation, diminished breath sounds Cardiovascular: regular rate and rhythm Gastrointestinal: soft Extremities: edema Results Result Diagram: 09/28/16 0400 09/28/16 0400 Results 24 hrs Laboratory Tests Test 09/27/16 13:39 09/27/16 16:31 09/27/16 20:13 09/28/16 04:00 Bedside Glucose 180 170 193 White Blood Count 13.5 H Red Blood Count 3.90 L Hemoglobin 10.5 L Hematocrit 32.6 L Mean Corpuscular Volume 83.6 Mean Corpuscular Hemoglobin 26.9 L Mean Corpuscular Hemoglobin Concent 32.2 Red Cell Distribution Width 17.4 H Platelet Count 182 Mean Platelet Volume 10.4 Neutrophils % 74.7 Lymphocytes % 9.8 L Monocytes % 12.0 H Eosinophils % 1.3 Basophils % 0.1 Nucleated Red Blood Cells % 1.6 H Neutrophils # 10.1 H Lymphocytes # 1.3 Monocytes # 1.6 H Eosinophils # 0.2 Basophils # 0.0 Nucleated Red Blood Cells # 0.2 H Sodium Level 143 Potassium Level 3.5 Chloride Level 106 Carbon Dioxide Level 18 L Anion Gap 23 H Blood Urea Nitrogen 108 H Creatinine 6.71 H Glucose Level 197 Calcium Level 7.0 L Phosphorus Level 7.8 H Magnesium Level 2.3 Total Bilirubin 0.8 Direct Bilirubin 0.50 #H Indirect Bilirubin 0.3 Aspartate Amino Transf (AST/SGOT) 743 H Alanine Aminotransferase (ALT/SGPT) 1265 H Alkaline Phosphatase 291 H Total Protein 5.2 L Albumin 2.3 L Globulin 2.90 Albumin/Globulin Ratio 0.79 Test 09/28/16 04:06 09/28/16 08:40 09/28/16 12:25 Bedside Glucose 190 195 220 Medications Medications Current Medications Ticagrelor (Brilinta) 90 mg BID PO Last administered on 09/24/16t 21:16; Admin Dose 90 MG; Start 09/21/16 at 09:00; Status Future Hold Miscellaneous Information 1 ea NOTE XX ; Start 09/20/16 at 22:00 Glucose (Glutose) 15 gm Q15M PRN PO DECREASED GLUCOSE; Start 09/20/16 at 22:00 Glucose (Glutose) 22.5 gm Q15M PRN PO DECREASED GLUCOSE; Start 09/20/16 at 22: 00 Glucagon (Glucagen) 1 mg Q15M PRN IM DECREASED GLUCOSE; Start 09/20/16 at 22:00 Glucose (Glutose) 15 gm Q15M PRN BUCCAL DECREASED GLUCOSE; Start 09/20/16 at 22 :00 Acetaminophen (Tylenol Liquid) 650 mg Q4H PRN NGT PAIN AND OR ELEVATED TEMP Last administered on 09/27/16 05:14; Admin Dose 650 MG; Start 09/21/16 at 02:00 Eye Lubricant (Artificial Tears Oph) 2 drop QID BOTH EYES Last administered on 09/28/16 12:26; Admin Dose 2 DROP; Start 09/21/16 at 09:00 Dextrose (D50w Syringe) 25 ml Q15M PRN IV Till BS 80 mg/dL or above x2; Start 09/21/16 at 08:00 Dextrose (D50w Syringe) 50 ml Q15M PRN IV Till BS 80 mg/dL or above x2; Start 09/21/16 at 08:00 Atorvastatin Calcium (Lipitor) 80 mg HS NGT Last administered on 09/27/16 20: 14; Admin Dose 80 MG; Start 09/22/16 at 21:00 Insulin Aspart NOVOLOG *MILD* ALGORI... Q4 SC Last administered on 09/28/16 12 :27; Admin Dose 2 UNIT; Start 09/25/16 at 13:00 Bumetanide/ Dextrose (Bumex/D5W) 250 ml @ 10 mls/hr Q24H IV Last administered on 09/27/16 16:28; Admin Dose 10 MLS/HR; Start 09/25/16 at 16:00 Pantoprazole (Protonix Iv) 40 mg AM IV Last administered on 09/28/16 08:41; Admin Dose 40 MG; Start 09/26/16 at 09:00 Epoetin Raj 04451 units 10,000 units TuThSa@17 SC Last administered on 17:57; Admin Dose 10,000 UNITS; Start 09/26/16 at 17:00 Piperacillin Sod/ Tazobactam Sod (Zosyn 3.375gm/ 100 ml (Pmx)) 100 ml @ 25 mls/ hr BID@14 IVPB Last administered on 09/28/16 03:28; Admin Dose 25 MLS/HR; Start 09/27/16 at 02:00 IV Flush (NS 10 ml) 10 ml PRN PRN IV IV PROTOCOL; Start 09/26/16 at 17:30 Insulin Glargine (Lantus) 30 unit DAILY@08 SC Last administered on 09/28/16 08 :43; Admin Dose 30 UNIT; Start 09/27/16 at 08:00 Aspirin (Aspirin) 81 mg DAILY NGT Last administered on 09/28/16 08:41; Admin Dose 81 MG; Start 09/27/16 at 09:00 Clopidogrel Bisulfate (plaVIX) 75 mg DAILY NGT Last administered on 09/28/16 08:41; Admin Dose 75 MG; Start 09/27/16 at 09:00 Sodium Bicarbonate (Sodium Bicarbonate Tab) 650 mg TID PO Last administered on 09/28/16 12:26; Admin Dose 650 MG; Start 09/27/16 at 13:00 DAMIR MARTINEZ MD Sep 28, 2016 13:41
[2016-09-28] MEDS: PIPER-TAZO 2.25 GM (PMX) 50 ML IVPB SCH ×2 (13:58→21:05)
[2016-09-28] MEDS ORDERED: POTASSIUM CHLORIDE 20 MEQ POWDER FOR ORAL SOLN GTB ONE (14:00)
[2016-09-28] MEDS: morphine 2 MG INJ IV PRN (15:43)
[2016-09-28] MEDS: BUMETANIDE 25 MG in DEXTROSE 5% 150 ML IV SCH (16:55)
--- NOTE | 2016-09-28 17:09 | PN ---
Date/Time of Note Date/Time of Note DATE: 09/28/16 TIME: 17:03 Assessment/Plan VTE Prophylaxis VTE Prophylaxis Intervention: anti-embolic stocking Lines/Catheters IV Catheter Type (from Nrsg): PICC Line Central line still needed: Yes Urinary Cath still in place: Yes Reason Cath still needed: other (indicate) (intubated) Assessment/Plan Chief Complaint/Hosp Course Patient found unresponsive and profoundly bradycardic, ekg suggestive of stemi of inferior wall Problems: Assessment/Plan STEMI of inferior wall, post pci and placement of two drug-eluting stents to the RCA Respiratory failure, acute Acute renal failure, ATN Elevated LFT's, possibly shock liver Possible aspiration pneumonia GI bleed, resolved Recommendations: Continue aspirin and clopidogrel for stent patency Atorvastatin at high dose Will add small dose of metoprolol for benefit post [place] as patient's blood pressure is stable and heart rate in the 90's. Can gradually uptitrate metoprolol as she tolerates it. Renal failure and respiratory failure as per nephrology and pulmonary services, it seems that the patient may require dialysis Subjective 24 Hr Interval Summary Free Text/Dictation Patient is now, per nursing, following commands. She remains on the ventilator critically ill with multi organ system failure. Subjective hx not possible: pt non-verbal Exam/Review of Systems Vital Signs Vitals Vital Signs Date Time Temp Pulse Resp B/P Pulse Ox O2 Delivery O2 Flow Rate FiO2 09/28/16 16:00 95 09/28/16 16:00 97.6 17 116/55 99 Mechanical Ventilator 09/28/16 15:28 30 Intake and Output 09/27/16 09/27/16 09/28/16 14:59 22:59 06:59 Intake Total 635 ml 750 ml 915 ml Output Total 525 ml 902 ml 1113 ml Balance 110 ml -152 ml -198 ml Exam Constitutional: obese Head: atraumatic, normocephalic ENMT: intubated Neck: No bruits Respiratory: crackles/rales Cardiovascular: regular rate and rhythm, No murmurs/extra sounds Gastrointestinal: non-tender, soft Extremities: edema (in all 4 extremities) Skin: other (toes black and blue distally) Results Result Diagram: 09/28/16 0400 09/28/16 0400 Results 24 hrs Laboratory Tests Test 09/27/16 20:13 09/28/16 04:00 09/28/16 04:06 09/28/16 08:40 Bedside Glucose 193 190 195 White Blood Count 13.5 H Red Blood Count 3.90 L Hemoglobin 10.5 L Hematocrit 32.6 L Mean Corpuscular Volume 83.6 Mean Corpuscular Hemoglobin 26.9 L Mean Corpuscular Hemoglobin Concent 32.2 Red Cell Distribution Width 17.4 H Platelet Count 182 Mean Platelet Volume 10.4 Neutrophils % 74.7 Lymphocytes % 9.8 L Monocytes % 12.0 H Eosinophils % 1.3 Basophils % 0.1 Nucleated Red Blood Cells % 1.6 H Neutrophils # 10.1 H Lymphocytes # 1.3 Monocytes # 1.6 H Eosinophils # 0.2 Basophils # 0.0 Nucleated Red Blood Cells # 0.2 H Sodium Level 143 Potassium Level 3.5 Chloride Level 106 Carbon Dioxide Level 18 L Anion Gap 23 H Blood Urea Nitrogen 108 H Creatinine 6.71 H Glucose Level 197 Calcium Level 7.0 L Phosphorus Level 7.8 H Magnesium Level 2.3 Total Bilirubin 0.8 Direct Bilirubin 0.50 #H Indirect Bilirubin 0.3 Aspartate Amino Transf (AST/SGOT) 743 H Alanine Aminotransferase (ALT/SGPT) 1265 H Alkaline Phosphatase 291 H Total Protein 5.2 L Albumin 2.3 L Globulin 2.90 Albumin/Globulin Ratio 0.79 Test 09/28/16 12:25 Bedside Glucose 220 Medications Medications Current Medications Ticagrelor (Brilinta) 90 mg BID PO Last administered on 09/24/16 21:16; Admin Dose 90 MG; Start 09/21/16 at 09:00; Status Future Hold Miscellaneous Information 1 ea NOTE XX ; Start 09/20/16 at 22:00 Glucose (Glutose) 15 gm Q15M PRN PO DECREASED GLUCOSE; Start 09/20/16 at 22:00 Glucose (Glutose) 22.5 gm Q15M PRN PO DECREASED GLUCOSE; Start 09/20/16 at 22: 00 Glucagon (Glucagen) 1 mg Q15M PRN IM DECREASED GLUCOSE; Start 09/20/16 at 22:00 Glucose (Glutose) 15 gm Q15M PRN BUCCAL DECREASED GLUCOSE; Start 09/20/16 at 22 :00 Acetaminophen (Tylenol Liquid) 650 mg Q4H PRN NGT PAIN AND OR ELEVATED TEMP Last administered on 09/27/16 05:14; Admin Dose 650 MG; Start 09/21/16 at 02:00 Eye Lubricant (Artificial Tears Oph) 2 drop QID BOTH EYES Last administered on 09/28/16 16:55; Admin Dose 2 DROP; Start 09/21/16 at 09:00 Dextrose (D50w Syringe) 25 ml Q15M PRN IV Till BS 80 mg/dL or above x2; Start 09/21/16 at 08:00 Dextrose (D50w Syringe) 50 ml Q15M PRN IV Till BS 80 mg/dL or above x2; Start 09/21/16 at 08:00 Atorvastatin Calcium (Lipitor) 80 mg HS NGT Last administered on 09/27/16 20: 14; Admin Dose 80 MG; Start 09/22/16 at 21:00 Insulin Aspart NOVOLOG *MILD* ALGORI... Q4 SC Last administered on 09/28/16 16 :57; Admin Dose 2 UNIT; Start 09/25/16 at 13:00 Bumetanide/ Dextrose (Bumex/D5W) 250 ml @ 10 mls/hr Q24H IV Last administered on 09/28/16 16:55; Admin Dose 10 MLS/HR; Start 09/25/16 at 16:00 Pantoprazole (Protonix Iv) 40 mg AM IV Last administered on 09/28/16 08:41; Admin Dose 40 MG; Start 09/26/16 at 09:00 Epoetin Raj (Epogen (Esrd)) 10,000 units TuThSa@17 SC Last administered on 17:57; Admin Dose 10,000 UNITS; Start 09/26/16 at 17:00 IV Flush (NS 10 ml) 10 ml PRN PRN IV IV PROTOCOL; Start 09/26/16 at 17:30 Insulin Glargine (Lantus) 30 unit DAILY@08 SC Last administered on 09/28/16 08 :43; Admin Dose 30 UNIT; Start 09/27/16 at 08:00 Aspirin (Aspirin) 81 mg DAILY NGT Last administered on 09/28/16 08:41; Admin Dose 81 MG; Start 09/27/16 at 09:00 Clopidogrel Bisulfate (plaVIX) 75 mg DAILY NGT Last administered on 09/28/16 08:41; Admin Dose 75 MG; Start 09/27/16 at 09:00 Sodium Bicarbonate 650 mg 650 mg TID PO Last administered on 09/28/16 12:26; Admin Dose 650 MG; Start 09/27/16 at 13:00 Piperacillin Sod/ Tazobactam Sod (Zosyn 2.25gm/ 50ml (Pmx)) 50 ml @ 100 mls/hr Q8 IVPB Last administered on 09/28/16 13:58; Admin Dose 100 MLS/HR; Start at 14:00 Morphine Sulfate (morphine) 2 mg Q4H PRN IV PAIN Last administered on 15:43; Admin Dose 2 MG; Start 09/28/16 at 16:00 BENJAMIN OSEGUERA Sep 28, 2016 17:09
[2016-09-28] MEDS: EPOETIN 10000 UNITS/1 ML INJ (ESRD) SC SCH (17:35)
[2016-09-28] MEDS: ATORVASTATIN 80 MG TAB NGT SCH (21:05)
[2016-09-28] MEDS: METOPROLOL 25 MG TAB GTB SCH (21:05)
[2016-09-29] VITALS (53 sets, daily range): BP systolic 76–133; BP diastolic 43–66; PULSE 77–102; RESP 15–20
[2016-09-29] MEDS: INSULIN ASPART [NOVOLOG] 3 ML PEN SC SCH ×6 (01:20→21:22)
[2016-09-29] MEDS: morphine 2 MG INJ IV PRN (04:09)
[2016-09-29 04:39] LABS: ADD SCAN DIFF NO
[2016-09-29 04:53] LABS: ALBUMIN 2.3 g/dl (3.3-4.9); CHLORIDE 104 mmol/L (97-110); SODIUM 139 mmol/L (135-144)
[2016-09-29 04:54] LABS: POTASSIUM 3.9 mmol/L (3.5-5.1)
[2016-09-29 04:55] LABS: CREATININE 6.96 mg/dl (0.44-1.00)
[2016-09-29 04:56] LABS: ABNORMAL IP MESSAGE 1; ALANINE AMINOTRANSFERASE 933 IU/L (13-69); ALBUMIN/GLOBULIN RATIO 0.79; ALKALINE PHOSPHATASE 364 IU/L (42-121); ANION GAP 20 (8-16); ASPARTATE AMINO TRANSFERASE 605 IU/L (15-46); BASOPHILS % 0.1 % (0.0-2.0); BILIRUBIN,INDIRECT 0.3 mg/dl (0-1.1); BILIRUBIN,TOTAL 0.6 mg/dl (0.2-1.3); CARBON DIOXIDE 19 mmol/L (21-31); EOSINOPHILS # 0.2 10^3/ul (0.0-0.5); EOSINOPHILS % 1.5 % (0.0-7.0); GLUCOSE 216 mg/dl (70-220); HEMATOCRIT 33.3 % (37.0-47.0); HEMOGLOBIN 10.6 g/dl (12.0-16.0); LYMPHOCYTES # 1.5 10^3/ul (0.8-2.9); LYMPHOCYTES % 10.3 % (15.0-51.0); MEAN CORPUSCULAR HEMOGLOBIN 26.9 pg (29.0-33.0); MEAN CORPUSCULAR HGB CONC 31.8 g/dl (32.0-37.0); MEAN CORPUSCULAR VOLUME 84.5 fl (82.0-101.0); MEAN PLATELET VOLUME 10.7 fl (7.4-10.4); MONOCYTE # 1.7 10^3/ul (0.3-0.9); MONOCYTES % 11.5 % (0.0-11.0); NEUTROPHIL # 11.3 10^3/ul (1.6-7.5); NEUTROPHILS % 75.4 % (39.0-77.0); NUCLEATED RED BLOOD CELLS # 0.2 10^3/ul (0.0-0.0); NUCLEATED RED BLOOD CELLS% 1.3 /100WBC (0.0-0.0); PHOSPHORUS 7.7 mg/dl (2.5-4.9); PLATELET COUNT 182 10^3/UL (140-415); RED BLOOD COUNT 3.94 10^6/ul (4.20-5.40); RED CELL DISTRIBUTION WIDTH 17.7 % (11.5-14.5); TOTAL PROTEIN 5.2 g/dl (6.1-8.1)
[2016-09-29 04:57] LABS: CALCIUM 7.2 mg/dl (8.4-10.2); MAGNESIUM 2.3 mg/dl (1.7-2.5)
[2016-09-29 05:00] LABS: BLOOD UREA NITROGEN > 120 mg/dl (7-20)
[2016-09-29] MEDS: PIPER-TAZO 2.25 GM (PMX) 50 ML IVPB SCH ×3 (06:25→21:19)
[2016-09-29] MEDS: CLOPIDOGREL 75 MG TAB NGT SCH (09:03)
[2016-09-29] MEDS: ARTIFICIAL TEARS 15 ML OPH BOTH EYES SCH ×4 (09:03→21:19)
[2016-09-29] MEDS: ASPIRIN 81 MG TAB NGT SCH (09:03)
[2016-09-29] MEDS: PANTOPRAZOLE 40 MG INJ IV SCH (09:03)
[2016-09-29] MEDS: METOPROLOL 25 MG TAB GTB SCH ×2 (09:05→21:20)
[2016-09-29] MEDS: INSULIN GLARGINE [LANtus] 3 ML PEN SC SCH (09:06)
[2016-09-29] MEDS: NA BICARBONATE 650 MG TAB PO SCH ×3 (09:07→21:19)
--- NOTE | 2016-09-29 10:05 | RADRPT ---
PROCEDURE: XR Chest. CLINICAL INDICATION: CHF TECHNIQUE: Single frontal chest x-ray. COMPARISON: 09/27/2016 FINDINGS: An endotracheal tube, nasogastric tube, right upper extremity PICC remain in stable and radiographic ally appropriate position. The heart is magnified. There are persistent bibasilar opacities consiste nt with worsening pleural effusions and/or adjacent atelectasis/infiltrate. The upper lung zones rem ain clear. No acute osseous abnormality. IMPRESSION: 1. Persistent bibasilar pleural / parenchymal disease. 2. Supporting tubes and lines in satisfactory position without evidence of pneumothorax. RPTAT: QQ .Malcolm Cavazos MD, MD Date Time Electronically viewed and signed by .Malcolm Cavazos MD, on 09/29/2016 10:05 .d/
--- NOTE | 2016-09-29 10:42 | CONS ---
Date/Time of Note Date/Time of Note DATE: 09/29/16 TIME: 10:36 Assessment/Plan Assessment/Plan Additional Assessment/Plan Chest x-ray was reviewed from today visually significant improvement in pulmonary edema. Next Ventilator settings; AC of 16, tidal volume 550, PEEP of 5, 30% FiO2. Assessment recommendations; 1. Patient admitted with acute GA and acute renal failure. 2. Significant generalized anasarca. 3. Worsening renal function. 4. Patient is hemodynamically stable with excellent mental status. 5. Patient was briefly tried on CPAP mode and has good weaning parameters however on account of worsening renal function patient will be dialyzed today and it would be worthwhile waiting at least one day before giving her weaning trial from mechanical ventilation. Consultation Date/Type/Reason Admit Date/Time Sep 20, 2016 at 19:21 Initial Consult Date 09/23/16 Type of Consultation: Pulmonary/critical care Referring Provider: ZANDRA ROBISON MD, [facility] 24 HR Interval Summary Free Text/Dictation Patient condition is stable. She has been off sedation and is completely awake and alert. Has remained hemodynamically stable. General exam; elderly lady, orally intubated, awake and alert. Currently in no distress. Exam/Review of Systems Vital Signs Vitals Vital Signs Date Time Temp Pulse Resp B/P Pulse Ox O2 Delivery O2 Flow Rate FiO2 09/29/16 09:00 91 17 130/65 100 Mechanical Ventilator 09/29/16 08:00 30 09/29/16 08:00 98.5 Intake and Output 09/28/16 09/28/16 09/29/16 15:00 23:00 07:00 Intake Total 650 ml 440 ml 540 ml Output Total 879 ml 809 ml 527 ml Balance -229 ml -369 ml 13 ml Exam HEENT examination; supple neck, orally intubated. No lymphadenopathy. No thyromegaly. Pupils are small bilaterally. No neck masses. Chest examination; diminished but clear breath sounds bilaterally. S1-S2 audible, no murmurs. Regular rhythm. Abdomen examination; soft, nontender. Bowel sounds audible. No organomegaly. Extremity examination; 2+ anasarca. Patient has multiple ecchymosis involving all 4 extremities. Pulses 1+ bilaterally. BROTH SETTER examination; patient is awake alert follows simple commands but has significant generalized weakness. Results Result Diagram: 3/26/17 0400 3/26/17 0400 Results 24 hrs Laboratory Tests Test 09/28/16 12:25 09/28/16 16:56 09/28/16 21:00 09/29/16 01:15 Bedside Glucose 220 205 203 253 H Test 09/29/16 04:00 09/29/16 04:12 09/29/16 09:02 White Blood Count 15.0 H Red Blood Count 3.94 L Hemoglobin 10.6 L Hematocrit 33.3 L Mean Corpuscular Volume 84.5 Mean Corpuscular Hemoglobin 26.9 L Mean Corpuscular Hemoglobin Concent 31.8 L Red Cell Distribution Width 17.7 H Platelet Count 182 Mean Platelet Volume 10.7 H Neutrophils % 75.4 Lymphocytes % 10.3 L Monocytes % 11.5 H Eosinophils % 1.5 Basophils % 0.1 Nucleated Red Blood Cells % 1.3 H Neutrophils # 11.3 H Lymphocytes # 1.5 Monocytes # 1.7 H Eosinophils # 0.2 Basophils # 0.0 Nucleated Red Blood Cells # 0.2 H Sodium Level 139 Potassium Level 3.9 Chloride Level 104 Carbon Dioxide Level 19 L Anion Gap 20 H Blood Urea Nitrogen > 120 H Creatinine 6.96 H Glucose Level 216 Calcium Level 7.2 L Phosphorus Level 7.7 H Magnesium Level 2.3 Total Bilirubin 0.6 Direct Bilirubin 0.30 #H Indirect Bilirubin 0.3 Aspartate Amino Transf (AST/SGOT) 605 H Alanine Aminotransferase (ALT/SGPT) 933 H Alkaline Phosphatase 364 H Total Protein 5.2 L Albumin 2.3 L Globulin 2.90 Albumin/Globulin Ratio 0.79 Bedside Glucose 182 211 Medications Medications Current Medications Ticagrelor (Brilinta) 90 mg BID PO Last administered on 09/24/16t 21:16; Admin Dose 90 MG; Start 09/21/16 at 09:00; Status Future Hold Miscellaneous Information 1 ea NOTE XX ; Start 09/20/16 at 22:00 Glucose (Glutose) 15 gm Q15M PRN PO DECREASED GLUCOSE; Start 09/20/16 at 22:00 Glucose (Glutose) 22.5 gm Q15M PRN PO DECREASED GLUCOSE; Start 09/20/16 at 22: 00 Glucagon (Glucagen) 1 mg Q15M PRN IM DECREASED GLUCOSE; Start 09/20/16 at 22:00 Glucose (Glutose) 15 gm Q15M PRN BUCCAL DECREASED GLUCOSE; Start 09/20/16 at 22 :00 Acetaminophen (Tylenol Liquid) 650 mg Q4H PRN NGT PAIN AND OR ELEVATED TEMP Last administered on 09/27/16 05:14; Admin Dose 650 MG; Start 09/21/16 at 02:00 Eye Lubricant (Artificial Tears Oph) 2 drop QID BOTH EYES Last administered on 09/29/16 09:03; Admin Dose 2 DROP; Start 09/21/16 at 09:00 Dextrose (D50w Syringe) 25 ml Q15M PRN IV Till BS 80 mg/dL or above x2; Start 09/21/16 at 08:00 Dextrose (D50w Syringe) 50 ml Q15M PRN IV Till BS 80 mg/dL or above x2; Start 09/21/16 at 08:00 Atorvastatin Calcium (Lipitor) 80 mg HS NGT Last administered on 09/28/16 21: 05; Admin Dose 80 MG; Start 09/22/16 at 21:00 Insulin Aspart NOVOLOG *MILD* ALGORI... Q4 SC Last administered on 09/29/16 09 :07; Admin Dose 2 UNIT; Start 09/25/16 at 13:00 Bumetanide/ Dextrose (Bumex/D5W) 250 ml @ 10 mls/hr Q24H IV Last administered on 09/28/16 16:55; Admin Dose 10 MLS/HR; Start 09/25/16 at 16:00 Pantoprazole (Protonix Iv) 40 mg AM IV Last administered on 09/29/16 09:03; Admin Dose 40 MG; Start 09/26/16 at 09:00 Epoetin Raj (Epogen (Esrd)) 10,000 units TuThSa@17 SC Last administered on 17:35; Admin Dose 10,000 UNITS; Start 09/26/16 at 17:00 IV Flush (NS 10 ml) 10 ml PRN PRN IV IV PROTOCOL; Start 09/26/16 at 17:30 Insulin Glargine (Lantus) 30 unit DAILY@08 SC Last administered on 09/29/16 09 :06; Admin Dose 30 UNIT; Start 09/27/16 at 08:00 Aspirin (Aspirin) 81 mg DAILY NGT Last administered on 09/29/16 09:03; Admin Dose 81 MG; Start 09/27/16 at 09:00 Clopidogrel Bisulfate (plaVIX) 75 mg DAILY NGT Last administered on 09/29/16 09:03; Admin Dose 75 MG; Start 09/27/16 at 09:00 Sodium Bicarbonate 650 mg 650 mg TID PO Last administered on 09/29/16 09:07; Admin Dose 650 MG; Start 09/27/16 at 13:00 Piperacillin Sod/ Tazobactam Sod (Zosyn 2.25gm/ 50ml (Pmx)) 50 ml @ 100 mls/hr Q8 IVPB Last administered on 09/29/16 06:25; Admin Dose 100 MLS/HR; Start at 14:00 Morphine Sulfate (morphine) 2 mg Q4H PRN IV PAIN Last administered on 04:09; Admin Dose 2 MG; Start 09/28/16 at 16:00 Metoprolol Tartrate (Lopressor) 25 mg BID GTB Last administered on 09/29/16 09 :05; Admin Dose 25 MG; Start 09/28/16 at 21:00 ADIS CAMACHO Sep 29, 2016 10:42
--- NOTE | 2016-09-29 14:18 | PN ---
DATE: SUBJECTIVE: The patient appears to be more awake. Eyes were open, has been getting information to the nurse, reporting that she has been in significant pain. The patient was started on morphine 2 m g IV q.4 hours p.r.n. Laboratory test has improved overall. The ALT went down from 1265 to 933. C reatinine went up from 6.7 to 6.9. WBC is going up from 13 to 15 and patient to be started on dialy sis. PHYSICAL EXAMINATION: VITAL SIGNS: Blood pressure is 130/65, temperature is 98.5, pulse 91, respirations 17, pulse ox 100 % on FiO2 of 30, intubated. INS AND OUTS: Output is negative 602. DIAGNOSTIC DATA: Chest x-ray has improved. ASSESSMENT AND PLAN: 1. Encephalopathy, status post intubation. 2. ST segment elevation myocardial infarction status post right coronary artery stent. 3. Acute renal failure due to acute tubular necrosis on a Bumex drip, now deciding on dialysis. 4. Gastrointestinal: The patient has been on G-tube feeding. Accu-Cheks have been mildly elevated . Still I would like her Accu-Cheks to be on the higher end versus low, but at this time, since the Accu-Cheks have been averaging 200, we will increase her Lantus from 30 to 33. 5. Hypotension. Patient has been off of her pressors, has been stable. Currently, doing well. 6. Elevated white blood cell count on Zosyn. Her WBC has increased from 13.5 to 15. Dictated By: SHAW CARABALLO/JERROD Conf#: [id number] DID#: [id number]
--- NOTE | 2016-09-29 14:23 | CONS ---
Date/Time of Note Date/Time of Note DATE: 09/29/16 TIME: 14:14 Assessment/Plan Assessment/Plan Chief Complaint/Hosp Course 1. Acute Renal Failure due to ATN , nonoliguric . Renal ultrasound shows echogenic kidneys , suggestive of CKD . Patient responded to Bumex drip and urine output has increased . Her renal function has decreased. Her BUN and creatinine are higher today . I recommended to patient and her family that hemodialysis be started . They are in agreement . I did discuss risks of dialysis with them previously .Vascath to be placed today . Dialysis for today and tomorrow . 2. 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 . 3. liver enzyme elevation due to anoxia , enzymes sre decreasing . 4. She was hypotensive on pressors. Her blood pressure is now normal and she is off pressors. 5. hypocalcemia/hypoalbuminemia , her calcium level has increased. 6. GI bleeding , will transfuse blood , bleeding seems to have stopped 7. peripheral vascular disease , with one blue L toe . Problems: Consultation Date/Type/Reason Admit Date/Time Sep 20, 2016 at 19:21 Initial Consult Date 09/23/16 Type of Consultation: Pulmonary/critical care Referring Provider: ZANDRA ROBISON MD, [facility] 24 HR Interval Summary Free Text/Dictation She is in the ICU , intubated on a ventilator . She is awake and responsive . Subjective hx not possible: pt non-verbal Exam/Review of Systems Vital Signs Vitals Vital Signs Date Time Temp Pulse Resp B/P Pulse Ox O2 Delivery O2 Flow Rate FiO2 09/29/16 13:00 82 16 103/60 100 Mechanical Ventilator 09/29/16 12:00 98.4 09/29/16 08:00 30 Intake and Output 09/28/16 09/28/16 09/29/16 15:00 23:00 07:00 Intake Total 650 ml 440 ml 540 ml Output Total 879 ml 809 ml 527 ml Balance -229 ml -369 ml 13 ml Exam Constitutional: alert, non-verbal Respiratory: clear to auscultation, diminished breath sounds Cardiovascular: regular rate and rhythm Gastrointestinal: soft Extremities: edema Results Result Diagram: 09/29/16 0400 09/29/16 0400 Results 24 hrs Laboratory Tests Test 09/28/16 16:56 09/28/16 21:00 09/29/16 01:15 09/29/16 04:00 Bedside Glucose 205 203 253 H White Blood Count 15.0 H Red Blood Count 3.94 L Hemoglobin 10.6 L Hematocrit 33.3 L Mean Corpuscular Volume 84.5 Mean Corpuscular Hemoglobin 26.9 L Mean Corpuscular Hemoglobin Concent 31.8 L Red Cell Distribution Width 17.7 H Platelet Count 182 Mean Platelet Volume 10.7 H Neutrophils % 75.4 Lymphocytes % 10.3 L Monocytes % 11.5 H Eosinophils % 1.5 Basophils % 0.1 Nucleated Red Blood Cells % 1.3 H Neutrophils # 11.3 H Lymphocytes # 1.5 Monocytes # 1.7 H Eosinophils # 0.2 Basophils # 0.0 Nucleated Red Blood Cells # 0.2 H Sodium Level 139 Potassium Level 3.9 Chloride Level 104 Carbon Dioxide Level 19 L Anion Gap 20 H Blood Urea Nitrogen > 120 H Creatinine 6.96 H Glucose Level 216 Calcium Level 7.2 L Phosphorus Level 7.7 H Magnesium Level 2.3 Total Bilirubin 0.6 Direct Bilirubin 0.30 #H Indirect Bilirubin 0.3 Aspartate Amino Transf (AST/SGOT) 605 H Alanine Aminotransferase (ALT/SGPT) 933 H Alkaline Phosphatase 364 H Total Protein 5.2 L Albumin 2.3 L Globulin 2.90 Albumin/Globulin Ratio 0.79 Test 09/29/16 04:12 09/29/16 09:02 09/29/16 13:31 Bedside Glucose 182 211 250 H Medications Medications Current Medications Ticagrelor (Brilinta) 90 mg BID PO Last administered on 09/24/16t 21:16; Admin Dose 90 MG; Start 09/21/16 at 09:00; Status Future Hold Miscellaneous Information 1 ea NOTE XX ; Start 09/20/16 at 22:00 Glucose (Glutose) 15 gm Q15M PRN PO DECREASED GLUCOSE; Start 09/20/16 at 22:00 Glucose (Glutose) 22.5 gm Q15M PRN PO DECREASED GLUCOSE; Start 09/20/16 at 22: 00 Glucagon (Glucagen) 1 mg Q15M PRN IM DECREASED GLUCOSE; Start 09/20/16 at 22:00 Glucose (Glutose) 15 gm Q15M PRN BUCCAL DECREASED GLUCOSE; Start 09/20/16 at 22 :00 Acetaminophen (Tylenol Liquid) 650 mg Q4H PRN NGT PAIN AND OR ELEVATED TEMP Last administered on 09/27/16 05:14; Admin Dose 650 MG; Start 09/21/16 at 02:00 Eye Lubricant (Artificial Tears Oph) 2 drop QID BOTH EYES Last administered on 09/29/16 13:37; Admin Dose 2 DROP; Start 09/21/16 at 09:00 Dextrose (D50w Syringe) 25 ml Q15M PRN IV Till BS 80 mg/dL or above x2; Start 09/21/16 at 08:00 Dextrose (D50w Syringe) 50 ml Q15M PRN IV Till BS 80 mg/dL or above x2; Start 09/21/16 at 08:00 Atorvastatin Calcium (Lipitor) 80 mg HS NGT Last administered on 09/28/16 21: 05; Admin Dose 80 MG; Start 09/22/16 at 21:00 Insulin Aspart NOVOLOG *MILD* ALGORI... Q4 SC Last administered on 09/29/16 13 :37; Admin Dose 3 UNIT; Start 09/25/16 at 13:00 Bumetanide/ Dextrose (Bumex/D5W) 250 ml @ 10 mls/hr Q24H IV Last administered on 09/28/16 16:55; Admin Dose 10 MLS/HR; Start 09/25/16 at 16:00 Pantoprazole (Protonix Iv) 40 mg AM IV Last administered on 09/29/16 09:03; Admin Dose 40 MG; Start 09/26/16 at 09:00 Epoetin Raj (Epogen (Esrd)) 10,000 units TuThSa@17 SC Last administered on 17:35; Admin Dose 10,000 UNITS; Start 09/26/16 at 17:00 IV Flush (NS 10 ml) 10 ml PRN PRN IV IV PROTOCOL; Start 09/26/16 at 17:30 Aspirin (Aspirin) 81 mg DAILY NGT Last administered on 09/29/16 09:03; Admin Dose 81 MG; Start 09/27/16 at 09:00 Clopidogrel Bisulfate (plaVIX) 75 mg DAILY NGT Last administered on 09/29/16 09:03; Admin Dose 75 MG; Start 09/27/16 at 09:00 Sodium Bicarbonate 650 mg 650 mg TID PO Last administered on 09/29/16 13:32; Admin Dose 650 MG; Start 09/27/16 at 13:00 Piperacillin Sod/ Tazobactam Sod (Zosyn 2.25gm/ 50ml (Pmx)) 50 ml @ 100 mls/hr Q8 IVPB Last administered on 09/29/16 13:32; Admin Dose 100 MLS/HR; Start at 14:00 Morphine Sulfate (morphine) 2 mg Q4H PRN IV PAIN Last administered on 04:09; Admin Dose 2 MG; Start 09/28/16 at 16:00 Metoprolol Tartrate (Lopressor) 25 mg BID GTB Last administered on 09/29/16 09 :05; Admin Dose 25 MG; Start 09/28/16 at 21:00 Insulin Glargine (Lantus) 33 unit DAILY@08 SC ; Start 09/30/16 at 08:00 DAMIR MARTINEZ MD Sep 29, 2016 14:23
[2016-09-29] MEDS ORDERED: HEPARIN 1000 UNITS/ML 10 ML INJ ONE (14:29)
--- NOTE | 2016-09-29 15:11 | OPR ---
Date/Time of Note Date/Time of Note DATE: 09/29/16 TIME: 15:10 Operative Report Free Text/Dictation DATE OF OPERATION: 09/29/2016 SURGEON: Lamin Rodas MD PREOPERATIVE DIAGNOSIS: Renal failure, NSTEMI POSTOPERATIVE DIAGNOSIS: same ANESTHESIA: Local BLOOD LOSS: minimal COMPLICATIONS: None. ACCESS: Right common femoral vein INDICATIONS: This is a 71 year-old female with renal failure and NSTEMI requiring dialysis. Patient and family have been informed of the alternatives, risks, and benefits. Risks including but not limited to bleeding, thrombosis, embolization, myocardial infarction, , device malfunction, infection, pneumothorax, nephrotoxicity and patient has agreed to proceed. PROCEDURE: 1. Ultrasound guided access of right common femoral vein 2. Emergent Right common femoral vein non-tunneled hemodialysis catheter placement DESCRIPTION: The patient was in supine position in her ICU bed. Bed was placed in slight Trendelenburg position and the groin was prepped and draped with sterile technique. The central catheter was flushed with heparin to ensure function of each port. Landmarks were identified and the skin entry site was chosen using ultrasound guidance. The skin And subcutaneous tissue were anesthetized with 1% lidocaine. The vein was then located with a needle with a 10 mL syringe using ultrasound guidance. The needle was then directed towards the vein and was entered. The needle position was secured and syringe was removed. The hub was occluded to prevent venous air embolus. The guidewire was passed easily and the needle was removed while the wire was held in place. A small incision was then made at the point of the wire entry. The dilator was placed over the wire and the tract gently dilated. The catheter was fed over the wire, ensuring the wire exited from the port before advancing the catheter. The catheter was inserted to the desired depth and the wire removed. Each port was aspirated to ensure adequate blood flow and then flushed with heparinized saline solution. The catheter was secured in place with a 2-0 nylon suture and a sterile dressing was applied. The patient tolerated the procedure well and was in stable condition. All instrument, sponge and needle counts were correct 2. LAMIN RODAS MD Sep 29, 2016 15:11
[2016-09-29] MEDS: BUMETANIDE 25 MG in DEXTROSE 5% 150 ML IV SCH (16:00)
--- NOTE | 2016-09-29 17:55 | CONS ---
DATE OF ADMISSION: 09/20/2016 DATE OF CONSULTATION: 09/29/2016 TYPE OF CONSULTATION: Vascular surgery. Dear Doctors: HISTORY OF PRESENT ILLNESS: Ms. Danielle is a 71-year-old female with plethora of medical condition s who presented with ST elevated myocardial infarction and profound bradycardia. Patient was found responsive by her and had called 911. The patient was brought into the ER with CPR that had been initiated. During her hospitalization, the patient's renal failure had gotten worse despite b eing on Bumex drip and requiring emergent dialysis. Vascular surgery consultation was obtained for hemodialysis catheter placement and evaluation. At the moment, patient is intubated and is not able to answer any questions. REVIEW OF SYSTEMS: Unable to ascertain secondary to patient being sedated and intubated. PAST MEDICAL HISTORY: Type 2 diabetes, glaucoma, hypertension, morbidly obese, hypercholesterolemia , coronary artery disease. PAST SURGICAL HISTORY: Unable to ascertain as the patient is intubated and not clear from her medic al records. The patient did have a cardiac catheterization to evaluate her current cardiac event. FAMILY HISTORY: Unable to ascertain as the patient is sedated and intubated. SOCIAL HISTORY: Unable to ascertain as the patient is intubated and sedated. PHYSICAL EXAMINATION: GENERAL: The patient is intubated and sedated, however, is able to awaken upon sternal rub and pain ful stimulation. HEENT: Normocephalic, atraumatic, endotracheal intubation intact. Mucosa moist. NECK: Supple. No carotid bruit. PULMONARY: Coarse breath sounds bilaterally. CARDIOVASCULAR: S1, S2 present. Sinus rhythm. ABDOMEN: Soft, nontender, nondistended. Bowel sounds positive. Large truncal obesity and pannus. LOWER EXTREMITIES: Unable to palpate femoral pulses secondary to body habitus, nonpalpable pedal pu lses. Motor, sensory, unable to ascertain secondary to patient being sedated and intubated. Capill michael refill 3 to 4 seconds. ASSESSMENT AND PLAN: 1. Acute renal failure and myocardial infarction: It seems that the patient had some baseline patient ombudsperson itzel kidney disease and currently in acute renal failure. It seems that despite being on a Bumex dri p, her urine output has not improved and her renal function has worsened. The patient has been requ iring emergent dialysis. Therefore, we will plan for emergent Maninder catheter placement. 2. Optimize vascular status (BP meds, diet, nutrition, exercise, sugar control, antiplatelets). Discussed findings, plan and management with the primary service, and we will plan to notify family. Thank you for allowing us to partake in the care of your patient. Please call with any questions. We will continue to follow the patient in regards to requiring a permanent catheter if her renal fun ction seems to be in ATN. Dictated By: OG DIAMOND/JERROD Conf#: [id number] DID#: [id number]
[2016-09-29] MEDS ORDERED: ALBUMIN HUMAN 25% 100 ML IV ONE (19:00)
[2016-09-29] MEDS ORDERED: ALBUMIN HUMAN 25% 100 ML ONE (19:01)
[2016-09-29] MEDS ORDERED: NORepinephrine 8MG/250 ML (PMX 250 ML IV SCH (20:00)
[2016-09-29] MEDS: ATORVASTATIN 80 MG TAB NGT SCH (21:19)
[2016-09-30] VITALS (55 sets, daily range): BP systolic 81–176; BP diastolic 45–170; PULSE 65–117; RESP 7–30
[2016-09-30] MEDS: INSULIN ASPART [NOVOLOG] 3 ML PEN SC SCH ×6 (01:19→21:53)
[2016-09-30 05:17] LABS: ADD SCAN DIFF NO
[2016-09-30 05:26] LABS: BASOPHILS % 0.1 % (0.0-2.0); EOSINOPHILS # 0.2 10^3/ul (0.0-0.5); EOSINOPHILS % 0.9 % (0.0-7.0); HEMATOCRIT 28.6 % (37.0-47.0); HEMOGLOBIN 9.2 g/dl (12.0-16.0); LYMPHOCYTES # 1.6 10^3/ul (0.8-2.9); LYMPHOCYTES % 9.9 % (15.0-51.0); MEAN CORPUSCULAR HGB CONC 32.2 g/dl (32.0-37.0); MEAN CORPUSCULAR VOLUME 83.9 fl (82.0-101.0); MEAN PLATELET VOLUME 11.3 fl (7.4-10.4); MONOCYTE # 1.4 10^3/ul (0.3-0.9); MONOCYTES % 8.9 % (0.0-11.0); NEUTROPHIL # 12.6 10^3/ul (1.6-7.5); NEUTROPHILS % 79.2 % (39.0-77.0); NUCLEATED RED BLOOD CELLS # 0.3 10^3/ul (0.0-0.0); NUCLEATED RED BLOOD CELLS% 1.9 /100WBC (0.0-0.0); PLATELET COUNT 113 10^3/UL (140-415); RED BLOOD COUNT 3.41 10^6/ul (4.20-5.40); RED CELL DISTRIBUTION WIDTH 17.5 % (11.5-14.5)
[2016-09-30 05:35] LABS: ALBUMIN 2.2 g/dl (3.3-4.9)
[2016-09-30 05:38] LABS: ALBUMIN/GLOBULIN RATIO 0.88; BILIRUBIN,DIRECT 0.3 mg/dl (0.00-0.20); BILIRUBIN,INDIRECT 0.4 mg/dl (0-1.1); BILIRUBIN,TOTAL 0.7 mg/dl (0.2-1.3); CREATININE 4.83 mg/dl (0.44-1.00); TOTAL PROTEIN 4.7 g/dl (6.1-8.1)
[2016-09-30 05:39] LABS: CALCIUM 7.4 mg/dl (8.4-10.2); PHOSPHORUS 5.8 mg/dl (2.5-4.9)
[2016-09-30] MEDS: PIPER-TAZO 2.25 GM (PMX) 50 ML IVPB SCH ×3 (05:50→21:44)
--- NOTE | 2016-09-30 08:07 | PN ---
DATE: Patient currently is intubated and sedated. VITAL SIGNS: Blood pressure 152/68, pulse is 109, pulse ox 96 on vent. The patient is not alert. HEART: Regular rate and rhythm. LUNGS: No rales, no rhonchi. EXTREMITIES: : His lower has trace pitting edema, diffuse. LABORATORY DATA: Demonstrate a WBC of 13.5, hemoglobin 10.5, potassium 3.5, BUN 108, creatinine 6.7 . AST is 743, ALT is 1265. ASSESSMENT AND PLAN: 1. Encephalopathy. It is reported that she possibly does follow directions occasionally, is intuba lia and sedated. 2. Has a post-ST elevation myocardial infarction, status post right coronary artery stent. 3. Acute renal failure due to acute tubular necrosis on a Bumex drip renal following. 4. Gastrointestinal bleed, anemic, transfused on 09/25/2016. Hemoglobin appears to be staying stab le in the 10s. 5. Hypotension, currently off pressors. 6. Diabetes. Accu-Cheks are running around high 100s. We will continue the current Lantus dose. 7. Gastrointestinal following the elevated liver function tests and gastrointestinal bleed. Dictated By: SHAW CARABALLO/JERROD Conf#: [id number] DID#: [id number]
[2016-09-30] MEDS: METOPROLOL 25 MG TAB GTB SCH ×2 (08:16→21:00)
[2016-09-30] MEDS: ARTIFICIAL TEARS 15 ML OPH BOTH EYES SCH ×4 (08:17→21:44)
--- NOTE | 2016-09-30 08:22 | CONS ---
Date/Time of Note Date/Time of Note DATE: 09/30/16 TIME: 08:14 Assessment/Plan Assessment/Plan Chief Complaint/Hosp Course 1. Acute Renal Failure due to ATN , nonoliguric . She had her first hemodialysis treatment last night . She is on dialysis now and is on levophed to support BP . will try to take fluid off during dialysis today . next dialysis to be determined . 2. 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 . 3. liver enzyme elevation due to anoxia , enzymes are decreasing . 4. She is hypotensive on pressors. 5. hypocalcemia/hypoalbuminemia , her calcium level has increased. 6. GI bleeding , will transfuse blood , bleeding seems to have stopped 7. peripheral vascular disease , with one blue L toe . Problems: Consultation Date/Type/Reason Admit Date/Time Sep 20, 2016 at 19:21 Initial Consult Date 09/23/16 Type of Consultation: Pulmonary/critical care Referring Provider: ZANDRA ROBISON MD, [facility] 24 HR Interval Summary Free Text/Dictation She is now having her second hemodialysis treatment . Her BP was low last night during dialysis and she required levophed to support BP . She is awake and responsive on ventilator . Subjective hx not possible: pt non-verbal Exam/Review of Systems Vital Signs Vitals Vital Signs Date Time Temp Pulse Resp B/P Pulse Ox O2 Delivery O2 Flow Rate FiO2 09/30/16 08:08 98 16 09/30/16 08:00 30 09/30/16 07:00 88/55 100 Mechanical Ventilator 09/30/16 04:00 98.4 Intake and Output 09/29/16 09/29/16 09/30/16 15:00 23:00 07:00 Intake Total 480 ml 2200 ml 480.625 ml Output Total 645 ml 2135 ml 190 ml Balance -165 ml 65 ml 290.625 ml Exam Constitutional: alert, non-verbal Respiratory: clear to auscultation, diminished breath sounds Cardiovascular: regular rate and rhythm Gastrointestinal: soft Extremities: edema Results Result Diagram: 09/30/16 0347 09/30/16 0347 Results 24 hrs Laboratory Tests Test 09/29/16 09:02 09/29/16 13:31 09/29/16 16:15 09/29/16 21:10 Bedside Glucose 211 250 H 253 H 208 Test 09/30/16 01:17 09/30/16 03:47 09/30/16 05:48 Bedside Glucose 297 H 306 H White Blood Count 16.0 H Red Blood Count 3.41 L Hemoglobin 9.2 L Hematocrit 28.6 L Mean Corpuscular Volume 83.9 Mean Corpuscular Hemoglobin 27.0 L Mean Corpuscular Hemoglobin Concent 32.2 Red Cell Distribution Width 17.5 H Platelet Count 113 #L Mean Platelet Volume 11.3 H Neutrophils % 79.2 H Lymphocytes % 9.9 L Monocytes % 8.9 Eosinophils % 0.9 Basophils % 0.1 Nucleated Red Blood Cells % 1.9 H Neutrophils # 12.6 H Lymphocytes # 1.6 Monocytes # 1.4 H Eosinophils # 0.2 Basophils # 0.0 Nucleated Red Blood Cells # 0.3 H Sodium Level 138 Potassium Level 4.0 Chloride Level 101 Carbon Dioxide Level 25 Anion Gap 16 Blood Urea Nitrogen 73 #H Creatinine 4.83 #H Glucose Level 282 H Calcium Level 7.4 L Phosphorus Level 5.8 H Magnesium Level 2.0 Total Bilirubin 0.7 Direct Bilirubin 0.30 H Indirect Bilirubin 0.4 Aspartate Amino Transf (AST/SGOT) 343 H Alanine Aminotransferase (ALT/SGPT) 613 H Alkaline Phosphatase 343 H Total Protein 4.7 L Albumin 2.2 L Globulin 2.50 Albumin/Globulin Ratio 0.88 Medications Medications Current Medications Ticagrelor (Brilinta) 90 mg BID PO Last administered on 09/24/16 21:16; Admin Dose 90 MG; Start 09/21/16 at 09:00; Status Future Hold Miscellaneous Information 1 ea NOTE XX ; Start 09/20/16 at 22:00 Glucose (Glutose) 15 gm Q15M PRN PO DECREASED GLUCOSE; Start 09/20/16 at 22:00 Glucose (Glutose) 22.5 gm Q15M PRN PO DECREASED GLUCOSE; Start 09/20/16 at 22: 00 Glucagon (Glucagen) 1 mg Q15M PRN IM DECREASED GLUCOSE; Start 09/20/16 at 22:00 Glucose (Glutose) 15 gm Q15M PRN BUCCAL DECREASED GLUCOSE; Start 09/20/16 at 22 :00 Acetaminophen (Tylenol Liquid) 650 mg Q4H PRN NGT PAIN AND OR ELEVATED TEMP Last administered on 09/27/16 05:14; Admin Dose 650 MG; Start 09/21/16 at 02:00 Eye Lubricant (Artificial Tears Oph) 2 drop QID BOTH EYES Last administered on 09/29/16 21:19; Admin Dose 2 DROP; Start 09/21/16 at 09:00 Dextrose (D50w Syringe) 25 ml Q15M PRN IV Till BS 80 mg/dL or above x2; Start 09/21/16 at 08:00 Dextrose (D50w Syringe) 50 ml Q15M PRN IV Till BS 80 mg/dL or above x2; Start 09/21/16 at 08:00 Atorvastatin Calcium (Lipitor) 80 mg HS NGT Last administered on 09/29/16 21: 19; Admin Dose 80 MG; Start 09/22/16 at 21:00 Insulin Aspart (Novolog Insulin Pen) NOVOLOG *MILD* ALGORI... Q4 SC Last administered on 09/30/16 05:51; Admin Dose 5 UNIT; Start 09/25/16 at 13:00 Pantoprazole (Protonix Iv) 40 mg AM IV Last administered on 09/29/16 09:03; Admin Dose 40 MG; Start 09/26/16 at 09:00 Epoetin Raj (Epogen (Esrd)) 10,000 units TuThSa@17 SC Last administered on 17:35; Admin Dose 10,000 UNITS; Start 09/26/16 at 17:00 IV Flush (NS 10 ml) 10 ml PRN PRN IV IV PROTOCOL; Start 09/26/16 at 17:30 Aspirin (Aspirin) 81 mg DAILY NGT Last administered on 09/29/16 09:03; Admin Dose 81 MG; Start 09/27/16 at 09:00 Clopidogrel Bisulfate (plaVIX) 75 mg DAILY NGT Last administered on 09/29/16 09:03; Admin Dose 75 MG; Start 09/27/16 at 09:00 Sodium Bicarbonate 650 mg 650 mg TID PO Last administered on 09/29/16 21:19; Admin Dose 650 MG; Start 09/27/16 at 13:00 Piperacillin Sod/ Tazobactam Sod (Zosyn 2.25gm/ 50ml (Pmx)) 50 ml @ 100 mls/hr Q8 IVPB Last administered on 09/30/16 05:50; Admin Dose 100 MLS/HR; Start at 14:00 Morphine Sulfate (morphine) 2 mg Q4H PRN IV PAIN Last administered on 04:09; Admin Dose 2 MG; Start 09/28/16 at 16:00 Metoprolol Tartrate (Lopressor) 25 mg BID GTB Last administered on 09/29/16 21 :20; Admin Dose 25 MG; Start 09/28/16 at 21:00 Insulin Glargine 33 unit 33 unit DAILY@08 SC ; Start 09/30/16 at 08:00 Norepinephrine 250 ml @ 1.875 mls/ hr TITRATE IV Last administered on 01:18; Admin Dose 7.5 MLS/HR; Start 09/29/16 at 20:00 Norepinephrine/ Dextrose (Levophed/D5W) 500 ml @ 1.87 mls/hr TITRATE IV ; Start 09/29/16 at 20:00 DAMIR MARTINEZ MD Sep 30, 2016 08:22
[2016-09-30] MEDS: INSULIN GLARGINE [LANtus] 3 ML PEN SC SCH (08:23)
[2016-09-30] MEDS: CLOPIDOGREL 75 MG TAB NGT SCH (09:54)
[2016-09-30] MEDS: ASPIRIN 81 MG TAB NGT SCH (09:54)
[2016-09-30] MEDS: PANTOPRAZOLE 40 MG INJ IV SCH (09:54)
--- NOTE | 2016-09-30 11:15 | CONS ---
Date/Time of Note Date/Time of Note DATE: 09/30/16 TIME: 11:13 Consult Date/Type/Reason Admit Date/Time Sep 20, 2016 at 19:21 Initial Consult Date 09/23/16 Type of Consultation: Pulmonary/critical care Ordering Provider: ZANDRA ROBISON MD, [facility] Subjective Patient awake alert orally intubated. She follows simple commands Currently on low-dose levophed Nasogastric tube feeding tolerated Objective Vital Signs Date Time Temp Pulse Resp B/P Pulse Ox O2 Delivery O2 Flow Rate FiO2 09/30/16 10:30 93 19 130/60 98 09/30/16 10:00 30 09/30/16 10:00 Mechanical Ventilator 09/30/16 08:00 98.4 Intake and Output 09/29/16 09/29/16 09/30/16 15:00 23:00 07:00 Intake Total 480 ml 2200 ml 480.625 ml Output Total 645 ml 2135 ml 190 ml Balance -165 ml 65 ml 290.625 ml Exam PHYSICAL EXAMINATION GENERAL: Elderly lady intubated on mechanical ventilation, eyes open follows simple commands VITAL SIGNS: see below. HEENT: Pupils equal, round, and reactive to light. CARDIAC: S1, S2, 3/6 systolic ejection murmur CHEST: Diminished air entry bilaterally. ABDOMEN: Mildly distended. Bowel sounds present no guarding or rebound EXTREMITIES: No cyanosis, clubbing edema +2 NEUROLOGIC: Generalized weakness Skin: purpuric lesions Results/Medications Result Diagram: 09/30/16 0347 09/30/16 0347 Results 24 hrs Laboratory Tests Test 09/29/16 13:31 09/29/16 16:15 09/29/16 21:10 09/30/16 01:17 Bedside Glucose 250 H 253 H 208 297 H Test 09/30/16 03:47 09/30/16 05:48 09/30/16 08:19 White Blood Count 16.0 H Red Blood Count 3.41 L Hemoglobin 9.2 L Hematocrit 28.6 L Mean Corpuscular Volume 83.9 Mean Corpuscular Hemoglobin 27.0 L Mean Corpuscular Hemoglobin Concent 32.2 Red Cell Distribution Width 17.5 H Platelet Count 113 #L Mean Platelet Volume 11.3 H Neutrophils % 79.2 H Lymphocytes % 9.9 L Monocytes % 8.9 Eosinophils % 0.9 Basophils % 0.1 Nucleated Red Blood Cells % 1.9 H Neutrophils # 12.6 H Lymphocytes # 1.6 Monocytes # 1.4 H Eosinophils # 0.2 Basophils # 0.0 Nucleated Red Blood Cells # 0.3 H Sodium Level 138 Potassium Level 4.0 Chloride Level 101 Carbon Dioxide Level 25 Anion Gap 16 Blood Urea Nitrogen 73 #H Creatinine 4.83 #H Glucose Level 282 H Calcium Level 7.4 L Phosphorus Level 5.8 H Magnesium Level 2.0 Total Bilirubin 0.7 Direct Bilirubin 0.30 H Indirect Bilirubin 0.4 Aspartate Amino Transf (AST/SGOT) 343 H Alanine Aminotransferase (ALT/SGPT) 613 H Alkaline Phosphatase 343 H Total Protein 4.7 L Albumin 2.2 L Globulin 2.50 Albumin/Globulin Ratio 0.88 Bedside Glucose 306 H 246 H Medications Current Medications Ticagrelor (Brilinta) 90 mg BID PO Last administered on 09/24/16 21:16; Admin Dose 90 MG; Start 09/21/16 at 09:00; Status Future Hold Miscellaneous Information 1 ea NOTE XX ; Start 09/20/16 at 22:00 Glucose (Glutose) 15 gm Q15M PRN PO DECREASED GLUCOSE; Start 09/20/16 at 22:00 Glucose (Glutose) 22.5 gm Q15M PRN PO DECREASED GLUCOSE; Start 09/20/16 at 22: 00 Glucagon (Glucagen) 1 mg Q15M PRN IM DECREASED GLUCOSE; Start 09/20/16 at 22:00 Glucose (Glutose) 15 gm Q15M PRN BUCCAL DECREASED GLUCOSE; Start 09/20/16 at 22 :00 Acetaminophen (Tylenol Liquid) 650 mg Q4H PRN NGT PAIN AND OR ELEVATED TEMP Last administered on 09/27/16 05:14; Admin Dose 650 MG; Start 09/21/16 at 02:00 Eye Lubricant (Artificial Tears Oph) 2 drop QID BOTH EYES Last administered on 09/30/16 08:17; Admin Dose 2 DROP; Start 09/21/16 at 09:00 Dextrose (D50w Syringe) 25 ml Q15M PRN IV Till BS 80 mg/dL or above x2; Start 09/21/16 at 08:00 Dextrose (D50w Syringe) 50 ml Q15M PRN IV Till BS 80 mg/dL or above x2; Start 09/21/16 at 08:00 Atorvastatin Calcium (Lipitor) 80 mg HS NGT Last administered on 09/29/16 21: 19; Admin Dose 80 MG; Start 09/22/16 at 21:00 Insulin Aspart (Novolog Insulin Pen) NOVOLOG *MILD* ALGORI... Q4 SC Last administered on 09/30/16 08:22; Admin Dose 3 UNIT; Start 09/25/16 at 13:00 Pantoprazole (Protonix Iv) 40 mg AM IV Last administered on 09/30/16 09:54; Admin Dose 40 MG; Start 09/26/16 at 09:00 Epoetin Raj (Epogen (Esrd)) 10,000 units TuThSa@17 SC Last administered on 17:35; Admin Dose 10,000 UNITS; Start 09/26/16 at 17:00 IV Flush (NS 10 ml) 10 ml PRN PRN IV IV PROTOCOL; Start 09/26/16 at 17:30 Aspirin (Aspirin) 81 mg DAILY NGT Last administered on 09/30/16 09:54; Admin Dose 81 MG; Start 09/27/16 at 09:00 Clopidogrel Bisulfate 75 mg 75 mg DAILY NGT Last administered on 09/30/16 09: 54; Admin Dose 75 MG; Start 09/27/16 at 09:00 Piperacillin Sod/ Tazobactam Sod (Zosyn 2.25gm/ 50ml (Pmx)) 50 ml @ 100 mls/hr Q8 IVPB Last administered on 09/30/16 05:50; Admin Dose 100 MLS/HR; Start at 14:00 Morphine Sulfate (morphine) 2 mg Q4H PRN IV PAIN Last administered on 04:09; Admin Dose 2 MG; Start 09/28/16 at 16:00 Metoprolol Tartrate (Lopressor) 25 mg BID GTB Last administered on 09/29/16 21 :20; Admin Dose 25 MG; Start 09/28/16 at 21:00 Insulin Glargine 33 unit 33 unit DAILY@08 SC Last administered on 09/30/16 08: 23; Admin Dose 33 UNIT; Start 09/30/16 at 08:00 Norepinephrine 250 ml @ 1.875 mls/ hr TITRATE IV Last administered on 01:18; Admin Dose 7.5 MLS/HR; Start 09/29/16 at 20:00 Norepinephrine/ Dextrose (Levophed/D5W) 500 ml @ 1.87 mls/hr TITRATE IV ; Start 09/29/16 at 20:00 Assessment/Plan Chief Complaint/Hosp Course IMPRESSION 1. Status post Cardiac arrest. ST elevation TX stent placement to RCA 2. Significant neurological recovery from initial encephalopathy 3. Acute renal failure, probably acute tubular necrosis injury. Now on hemodialysis 4. Status post Shock liver. 5. Possible aspiration pneumonia with septic shock. Plan 1. Continue mechanical ventilation. CPAP trial this morning 2. Continue renal recommendations. Hemodialysis as tolerated 3. Continue vasopressor support. Decrease the Levophed as tolerated 4. Broad-spectrum antibiotic coverage. 5. Glycemic management. 6. Nasogastric tube feeding 7. Neurology recommendations Disposition Continue supportive care Problems: ZANDRA ROBISON MD, [facility] Sep 30, 2016 11:15
[2016-09-30 12:43] LABS: AADO2 Arterial 95.2 mmHg (7.0-24.0); Allen Test ACCEPTAB; Arterial Base Excess 0.4 mmol/L (-3.0-3); Arterial COHb 0.3 % (0.0-3.0); Arterial HCO3 23.3 mmol/L (22.0-26.0); Arterial MetHb 0.4 % (0.0-1.5); Blood Gas PS 10; MODE VENT - CPAP
--- NOTE | 2016-09-30 12:44 | CONS ---
Date/Time of Note Date/Time of Note DATE: 09/30/16 TIME: 12:39 Consult Date/Type/Reason Admit Date/Time Sep 20, 2016 at 19:21 Initial Consult Date 09/23/16 Type of Consultation: GI Ordering Provider: ZANDRA ROBISON MD, [facility] Subjective Alert and responds appropriately Unable to speak as she is intubated Tolerating tube feeding No obvious bleeding Objective Vital Signs Date Time Temp Pulse Resp B/P Pulse Ox O2 Delivery O2 Flow Rate FiO2 09/30/16 12:00 104 09/30/16 11:42 20 98 30 09/30/16 10:30 130/60 09/30/16 10:00 Mechanical Ventilator 09/30/16 08:00 98.4 Chest: rhonchi Cardia: no m, r, g Abdomen: soft, non tender, +bs Intake and Output 09/29/16 09/29/16 09/30/16 15:00 23:00 07:00 Intake Total 480 ml 2200 ml 480.625 ml Output Total 645 ml 2135 ml 190 ml Balance -165 ml 65 ml 290.625 ml Results/Medications Result Diagram: 09/30/16 0347 09/30/16 0347 Results 24 hrs Laboratory Tests Test 09/29/16 13:31 09/29/16 16:15 09/29/16 21:10 09/30/16 01:17 Bedside Glucose 250 H 253 H 208 297 H Test 09/30/16 03:47 09/30/16 05:48 09/30/16 08:19 White Blood Count 16.0 H Red Blood Count 3.41 L Hemoglobin 9.2 L Hematocrit 28.6 L Mean Corpuscular Volume 83.9 Mean Corpuscular Hemoglobin 27.0 L Mean Corpuscular Hemoglobin Concent 32.2 Red Cell Distribution Width 17.5 H Platelet Count 113 #L Mean Platelet Volume 11.3 H Neutrophils % 79.2 H Lymphocytes % 9.9 L Monocytes % 8.9 Eosinophils % 0.9 Basophils % 0.1 Nucleated Red Blood Cells % 1.9 H Neutrophils # 12.6 H Lymphocytes # 1.6 Monocytes # 1.4 H Eosinophils # 0.2 Basophils # 0.0 Nucleated Red Blood Cells # 0.3 H Sodium Level 138 Potassium Level 4.0 Chloride Level 101 Carbon Dioxide Level 25 Anion Gap 16 Blood Urea Nitrogen 73 #H Creatinine 4.83 #H Glucose Level 282 H Calcium Level 7.4 L Phosphorus Level 5.8 H Magnesium Level 2.0 Total Bilirubin 0.7 Direct Bilirubin 0.30 H Indirect Bilirubin 0.4 Aspartate Amino Transf (AST/SGOT) 343 H Alanine Aminotransferase (ALT/SGPT) 613 H Alkaline Phosphatase 343 H Total Protein 4.7 L Albumin 2.2 L Globulin 2.50 Albumin/Globulin Ratio 0.88 Bedside Glucose 306 H 246 H Medications Current Medications Ticagrelor (Brilinta) 90 mg BID PO Last administered on 09/24/16 21:16; Admin Dose 90 MG; Start 09/21/16 at 09:00; Status Future Hold Miscellaneous Information 1 ea NOTE XX ; Start 09/20/16 at 22:00 Glucose (Glutose) 15 gm Q15M PRN PO DECREASED GLUCOSE; Start 09/20/16 at 22:00 Glucose (Glutose) 22.5 gm Q15M PRN PO DECREASED GLUCOSE; Start 09/20/16 at 22: 00 Glucagon (Glucagen) 1 mg Q15M PRN IM DECREASED GLUCOSE; Start 09/20/16 at 22:00 Glucose (Glutose) 15 gm Q15M PRN BUCCAL DECREASED GLUCOSE; Start 09/20/16 at 22 :00 Acetaminophen (Tylenol Liquid) 650 mg Q4H PRN NGT PAIN AND OR ELEVATED TEMP Last administered on 09/27/16 05:14; Admin Dose 650 MG; Start 09/21/16 at 02:00 Eye Lubricant (Artificial Tears Oph) 2 drop QID BOTH EYES Last administered on 09/30/16 08:17; Admin Dose 2 DROP; Start 09/21/16 at 09:00 Dextrose (D50w Syringe) 25 ml Q15M PRN IV Till BS 80 mg/dL or above x2; Start 09/21/16 at 08:00 Dextrose (D50w Syringe) 50 ml Q15M PRN IV Till BS 80 mg/dL or above x2; Start 09/21/16 at 08:00 Atorvastatin Calcium (Lipitor) 80 mg HS NGT Last administered on 09/29/16 21: 19; Admin Dose 80 MG; Start 09/22/16 at 21:00 Insulin Aspart (Novolog Insulin Pen) NOVOLOG *MILD* ALGORI... Q4 SC Last administered on 09/30/16 08:22; Admin Dose 3 UNIT; Start 09/25/16 at 13:00 Pantoprazole (Protonix Iv) 40 mg AM IV Last administered on 09/30/16 09:54; Admin Dose 40 MG; Start 09/26/16 at 09:00 Epoetin Raj (Epogen (Esrd)) 10,000 units TuThSa@17 SC Last administered on 17:35; Admin Dose 10,000 UNITS; Start 09/26/16 at 17:00 IV Flush (NS 10 ml) 10 ml PRN PRN IV IV PROTOCOL; Start 09/26/16 at 17:30 Aspirin (Aspirin) 81 mg DAILY NGT Last administered on 09/30/16 09:54; Admin Dose 81 MG; Start 09/27/16 at 09:00 Clopidogrel Bisulfate 75 mg 75 mg DAILY NGT Last administered on 09/30/16 09: 54; Admin Dose 75 MG; Start 09/27/16 at 09:00 Piperacillin Sod/ Tazobactam Sod (Zosyn 2.25gm/ 50ml (Pmx)) 50 ml @ 100 mls/hr Q8 IVPB Last administered on 09/30/16 05:50; Admin Dose 100 MLS/HR; Start at 14:00 Morphine Sulfate (morphine) 2 mg Q4H PRN IV PAIN Last administered on 04:09; Admin Dose 2 MG; Start 09/28/16 at 16:00 Metoprolol Tartrate (Lopressor) 25 mg BID GTB Last administered on 09/29/16 21 :20; Admin Dose 25 MG; Start 09/28/16 at 21:00 Insulin Glargine 33 unit 33 unit DAILY@08 SC Last administered on 09/30/16 08: 23; Admin Dose 33 UNIT; Start 09/30/16 at 08:00 Norepinephrine 250 ml @ 1.875 mls/ hr TITRATE IV Last administered on 01:18; Admin Dose 7.5 MLS/HR; Start 09/29/16 at 20:00 Norepinephrine/ Dextrose (Levophed/D5W) 500 ml @ 1.87 mls/hr TITRATE IV ; Start 09/29/16 at 20:00 Assessment/Plan Chief Complaint/Hosp Course Impression: 1. GI bleed - stable, no further bleeding 2. Shock Liver - note LFTs returning towards normal Plan: 1. Continue IV Protonix 2. Avoid EGD unless substantial rebleed given recent MA and overall status 3. Tube feeding per orders Problems: TOMASA GLASS MD Sep 30, 2016 12:44
[2016-09-30] MEDS: morphine 2 MG INJ IV PRN (16:50)
[2016-09-30] MEDS ORDERED: SOD CHLORIDE 0.45% 1,000 ML IV SCH (20:30)
[2016-09-30] MEDS: ATORVASTATIN 80 MG TAB NGT SCH (21:00)
[2016-10-01] VITALS (19 sets, daily range): BP systolic 121–168; BP diastolic 51–88; PULSE 71–85; RESP 13–26
[2016-10-01] MEDS: INSULIN ASPART [NOVOLOG] 3 ML PEN SC SCH ×6 (00:45→20:23)
[2016-10-01 05:08] LABS: ADD SCAN DIFF NO
[2016-10-01] MEDS: PIPER-TAZO 2.25 GM (PMX) 50 ML IVPB SCH ×3 (05:15→22:28)
[2016-10-01 05:21] LABS: ABNORMAL IP MESSAGE 1; BASOPHILS % 0.1 % (0.0-2.0); EOSINOPHILS # 0.2 10^3/ul (0.0-0.5); EOSINOPHILS % 0.7 % (0.0-7.0); HEMATOCRIT 30.1 % (37.0-47.0); HEMOGLOBIN 9.6 g/dl (12.0-16.0); LYMPHOCYTES # 2.3 10^3/ul (0.8-2.9); LYMPHOCYTES % 9.8 % (15.0-51.0); MEAN CORPUSCULAR HEMOGLOBIN 27.5 pg (29.0-33.0); MEAN CORPUSCULAR HGB CONC 31.9 g/dl (32.0-37.0); MEAN CORPUSCULAR VOLUME 86.2 fl (82.0-101.0); MEAN PLATELET VOLUME 11.3 fl (7.4-10.4); MONOCYTE # 2.8 10^3/ul (0.3-0.9); MONOCYTES % 12.4 % (0.0-11.0); NEUTROPHIL # 17.3 10^3/ul (1.6-7.5); NEUTROPHILS % 75.9 % (39.0-77.0); NUCLEATED RED BLOOD CELLS # 0.4 10^3/ul (0.0-0.0); NUCLEATED RED BLOOD CELLS% 1.9 /100WBC (0.0-0.0); PLATELET COUNT 70 10^3/UL (140-415); RED BLOOD COUNT 3.49 10^6/ul (4.20-5.40); RED CELL DISTRIBUTION WIDTH 18.2 % (11.5-14.5); WHITE BLOOD COUNT 22.9 10^3/ul (4.8-10.8)
[2016-10-01 05:27] LABS: INR 1.07; PROTIME 13.9 Sec (12.2-14.2); PT RATIO 1.1
[2016-10-01 05:28] LABS: PARTIAL THROMBOPLASTIN TIME 34.7 Sec (25.0-35.0)
[2016-10-01 05:34] LABS: ALBUMIN 2.2 g/dl (3.3-4.9)
[2016-10-01 05:37] LABS: ALBUMIN/GLOBULIN RATIO 0.84; BILIRUBIN,DIRECT 0.2 mg/dl (0.00-0.20); BILIRUBIN,INDIRECT 0.4 mg/dl (0-1.1); BILIRUBIN,TOTAL 0.6 mg/dl (0.2-1.3); CREATININE 4.23 mg/dl (0.44-1.00); PHOSPHORUS 6.7 mg/dl (2.5-4.9); TOTAL PROTEIN 4.8 g/dl (6.1-8.1)
[2016-10-01 05:38] LABS: CALCIUM 7.7 mg/dl (8.4-10.2); MAGNESIUM 2.2 mg/dl (1.7-2.5)
--- NOTE | 2016-10-01 08:27 | CONS ---
Date/Time of Note Date/Time of Note DATE: 10/01/16 TIME: 08:13 Assessment/Plan Assessment/Plan Chief Complaint/Hosp Course 1. Acute Renal Failure due to ATN , nonoliguric . She has had 2 hemodialysis treatments . next dialysis to be determined . I want to see is I can stimulate urine output with BUMEX drip . 2. ALOC , she is now extubated and she is now more responsive and following commands. . 3. liver enzyme elevation due to anoxia , enzymes are decreasing . 4. hypotension has resolved 5. hypocalcemia/hypoalbuminemia , her calcium level has increased. 6. GI bleeding , will transfuse blood , bleeding seems to have stopped 7. peripheral vascular disease , with one blue L toe . 8. will order speech therapy evaluation . Problems: Consultation Date/Type/Reason Admit Date/Time Sep 20, 2016 at 19:21 Initial Consult Date 09/23/16 Type of Consultation: GI Referring Provider: ZANDRA ROBISON MD, [facility] Interval Summary Free Text/Dictation she was extubated yesterday . She is awake and responsive .She had hemodialysis yesterday and 1 liter of fluid was remove . Constitutional: no complaints Exam/Review of Systems Vital Signs Vitals Vital Signs Date Time Temp Pulse Resp B/P Pulse Ox O2 Delivery O2 Flow Rate FiO2 10/01/16 04:14 98.5 10/01/16 04:00 84 09/30/16 23:00 14 143/49 100 09/30/16 20:48 Nasal Cannula 3.0 09/30/16 11:42 30 Intake and Output 09/30/16 09/30/16 10/01/16 14:59 22:59 06:59 Intake Total 761.865 ml 50 ml Output Total 1472 ml 38 ml 300 ml Balance -710.135 ml 12 ml -300 ml Exam Constitutional: alert Respiratory: clear to auscultation, diminished breath sounds Cardiovascular: regular rate and rhythm Gastrointestinal: soft Extremities: edema Results Result Diagram: 10/01/16 0400 10/01/16 0400 Results 24 hrs Laboratory Tests Test 09/30/16 08:19 09/30/16 12:20 09/30/16 14:42 09/30/16 17:25 Bedside Glucose 246 H 220 224 H Blood Gas Specimen Source Blood arterial Arterial Blood Date Drawn 09/30/2016 12:25:31 PM Arterial Blood pH (Temp corrected) 7.480 H Arterial Blood pCO2 (Temp correct) 32.0 L Arterial Blood pO2 (Temp corrected) 81.1 Arterial Blood HCO3 23.3 Arterial Blood Base Excess 0.4 Arterial Blood Oxygen Saturation 95.7 Raz Test ACCEPTAB Arterial Blood Gas Puncture Site Right Radial Arterial Blood Carboxyhemoglobin 0.3 Arterial Blood Methemoglobin 0.4 Blood Gas A-a O2 Differential 95.2 H Oxyhemoglobin Percent 95.0 Total Hemoglobin 12.0 Blood Gas Temperature 37.0 Blood Gas Actual Respiration Rate 18 Blood Gas Modality VENT - CPAP FiO2 30.0 Blood Gas Low PEEP Setting 5.0 Blood Gas Pressure Support 10 Blood Gas Notified Whom JLD Blood Gas Notified Time 09/30/2016 12:43:17 PM Test 09/30/16 21:51 10/01/16 00:40 10/01/16 04:00 10/01/16 05:00 Bedside Glucose 193 175 White Blood Count 22.9 #H Red Blood Count 3.49 L Hemoglobin 9.6 L Hematocrit 30.1 L Mean Corpuscular Volume 86.2 Mean Corpuscular Hemoglobin 27.5 L Mean Corpuscular Hemoglobin Concent 31.9 L Red Cell Distribution Width 18.2 H Platelet Count 70 #L Mean Platelet Volume 11.3 H Neutrophils % 75.9 Lymphocytes % 9.8 L Monocytes % 12.4 H Eosinophils % 0.7 Basophils % 0.1 Nucleated Red Blood Cells % 1.9 H Neutrophils # 17.3 H Lymphocytes # 2.3 Monocytes # 2.8 H Eosinophils # 0.2 Basophils # 0.0 Nucleated Red Blood Cells # 0.4 H Sodium Level 138 Potassium Level 4.0 Chloride Level 102 Carbon Dioxide Level 28 Anion Gap 12 Blood Urea Nitrogen 67 H Creatinine 4.23 H Glucose Level 158 # Calcium Level 7.7 L Phosphorus Level 6.7 H Magnesium Level 2.2 Total Bilirubin 0.6 Direct Bilirubin 0.20 Indirect Bilirubin 0.4 Aspartate Amino Transf (AST/SGOT) 316 H Alanine Aminotransferase (ALT/SGPT) 567 H Alkaline Phosphatase 353 H Total Protein 4.8 L Albumin 2.2 L Globulin 2.60 Albumin/Globulin Ratio 0.84 Prothrombin Time 13.9 # Prothrombin Time Ratio 1.1 INR International Normalized Ratio 1.07 Activated Partial Thromboplast Time 34.7 Test 10/01/16 05:10 Bedside Glucose 169 Medications Medications Current Medications Ticagrelor (Brilinta) 90 mg BID PO Last administered on 09/24/16 21:16; Admin Dose 90 MG; Start 09/21/16 at 09:00; Status Future Hold Miscellaneous Information 1 ea NOTE XX ; Start 09/20/16 at 22:00 Glucose (Glutose) 15 gm Q15M PRN PO DECREASED GLUCOSE; Start 09/20/16 at 22:00 Glucose (Glutose) 22.5 gm Q15M PRN PO DECREASED GLUCOSE; Start 09/20/16 at 22: 00 Glucagon (Glucagen) 1 mg Q15M PRN IM DECREASED GLUCOSE; Start 09/20/16 at 22:00 Glucose (Glutose) 15 gm Q15M PRN BUCCAL DECREASED GLUCOSE; Start 09/20/16 at 22 :00 Acetaminophen (Tylenol Liquid) 650 mg Q4H PRN NGT PAIN AND OR ELEVATED TEMP Last administered on 09/27/16 05:14; Admin Dose 650 MG; Start 09/21/16 at 02:00 Eye Lubricant (Artificial Tears Oph) 2 drop QID BOTH EYES Last administered on 09/30/16 21:44; Admin Dose 2 DROP; Start 09/21/16 at 09:00 Dextrose (D50w Syringe) 25 ml Q15M PRN IV Till BS 80 mg/dL or above x2; Start 09/21/16 at 08:00 Dextrose (D50w Syringe) 50 ml Q15M PRN IV Till BS 80 mg/dL or above x2; Start 09/21/16 at 08:00 Atorvastatin Calcium (Lipitor) 80 mg HS NGT Last administered on 09/29/16 21: 19; Admin Dose 80 MG; Start 09/22/16 at 21:00 Insulin Aspart (Novolog Insulin Pen) NOVOLOG *MILD* ALGORI... Q4 SC Last administered on 10/01/16 05:12; Admin Dose 1 UNIT; Start 09/25/16 at 13:00 Pantoprazole (Protonix Iv) 40 mg AM IV Last administered on 09/30/16 09:54; Admin Dose 40 MG; Start 09/26/16 at 09:00 Epoetin Raj (Epogen (Esrd)) 10,000 units TuThSa@17 SC Last administered on 17:35; Admin Dose 10,000 UNITS; Start 09/26/16 at 17:00 IV Flush (NS 10 ml) 10 ml PRN PRN IV IV PROTOCOL; Start 09/26/16 at 17:30 Aspirin (Aspirin) 81 mg DAILY NGT Last administered on 09/30/16 09:54; Admin Dose 81 MG; Start 09/27/16 at 09:00 Clopidogrel Bisulfate 75 mg 75 mg DAILY NGT Last administered on 09/30/16 09: 54; Admin Dose 75 MG; Start 09/27/16 at 09:00 Piperacillin Sod/ Tazobactam Sod (Zosyn 2.25gm/ 50ml (Pmx)) 50 ml @ 100 mls/hr Q8 IVPB Last administered on 10/01/16 05:15; Admin Dose 100 MLS/HR; Start at 14:00 Morphine Sulfate (morphine) 2 mg Q4H PRN IV PAIN Last administered on 16:50; Admin Dose 2 MG; Start 09/28/16 at 16:00 Metoprolol Tartrate (Lopressor) 25 mg BID GTB Last administered on 09/29/16 21 :20; Admin Dose 25 MG; Start 09/28/16 at 21:00 Insulin Glargine 33 unit 33 unit DAILY@08 SC Last administered on 09/30/16 08: 23; Admin Dose 33 UNIT; Start 09/30/16 at 08:00 Norepinephrine 16 mg/Dextrose 500 ml @ 1.87 mls/hr TITRATE IV ; Start 09/29/16 at 20:00 Sodium Chloride 1,000 ml @ 50 mls/hr Q20H IV Last administered on 09/30/16 21 :45; Admin Dose 50 MLS/HR; Start 09/30/16 at 20:30 Bumetanide/ Dextrose (Bumex/D5W) 250 ml @ 10 mls/hr Q24H IV ; Start 10/01/16 at 08:30; Status DAMIR SANCHEZ MD Oct 01, 2016 08:27
[2016-10-01] MEDS: ASPIRIN 81 MG TAB NGT SCH (08:53)
[2016-10-01] MEDS: PANTOPRAZOLE 40 MG INJ IV SCH (08:53)
[2016-10-01] MEDS: INSULIN GLARGINE [LANtus] 3 ML PEN SC SCH (08:53)
[2016-10-01] MEDS: METOPROLOL 25 MG TAB GTB SCH ×2 (08:54→20:19)
[2016-10-01] MEDS: ARTIFICIAL TEARS 15 ML OPH BOTH EYES SCH ×4 (08:54→20:19)
[2016-10-01] MEDS: CLOPIDOGREL 75 MG TAB NGT SCH (08:54)
--- NOTE | 2016-10-01 09:35 | RADRPT ---
PROCEDURE: XR Chest 1 view. CLINICAL INDICATION: Shortness of breath TECHNIQUE: AP views of the chest were obtained. COMPARISON: September 29, 2016 FINDINGS: The heart is large. Calcified atherosclerosis is noted in the aorta. Endotracheal and nasogastric t ubes have been removed. Retrocardiac opacity is unchanged. Small right pleural effusion with assoc iated basilar atelectasis/infiltrate is stable. The osseous structures are unchanged. Left-sided P ICC line is stable. IMPRESSION: Cardiomegaly with calcified atherosclerosis in the aorta. Interval extubation and nasogastric tube removal. Stable retrocardiac opacity that may reflect left lower lobe atelectasis or infiltrate combined with small pleural effusion. Stable small right pleural effusion with associated basilar atelectasis/infiltrate. RPTAT: AA .Ovidio Otoole MD, Date Time Electronically viewed and signed by .Ovidio Otoole MD, on 10/01/2016 09:35 .P/
[2016-10-01] MEDS: DEXTROSE 5%-0.45% NACL 1,000 ML IV SCH (09:38)
--- NOTE | 2016-10-01 11:17 | CONS ---
Date/Time of Note Date/Time of Note DATE: 10/01/16 TIME: 11:16 Consult Date/Type/Reason Admit Date/Time Sep 20, 2016 at 19:21 Initial Consult Date 09/23/16 Type of Consultation: pulmonary/intensive care Ordering Provider: ZANDRA ROBISON MD, [facility] Subjective Patient is awake alert oriented this morning following extubation Still has significant neuromuscular weakness Objective Vital Signs Date Time Temp Pulse Resp B/P Pulse Ox O2 Delivery O2 Flow Rate FiO2 10/01/16 09:04 84 16 156/63 100 Nasal Cannula 3.0 10/01/16 08:00 98.6 09/30/16 11:42 30 Intake and Output 09/30/16 09/30/16 10/01/16 15:00 23:00 07:00 Intake Total 706.24 ml 50 ml Output Total 1473 ml 37 ml 300 ml Balance -766.76 ml 13 ml -300 ml Exam PHYSICAL EXAMINATION GENERAL: Elderly lady extubated on nasal cannula oxygen VITAL SIGNS: see below. HEENT: Pupils equal, round, and reactive to light. CARDIAC: S1, S2, 3/6 systolic ejection murmur CHEST: Diminished air entry bilaterally. ABDOMEN: Mildly distended. Bowel sounds present no guarding or rebound EXTREMITIES: No cyanosis, clubbing edema +2 NEUROLOGIC: Generalized weakness Skin: purpuric lesions Results/Medications Result Diagram: 10/01/16 0400 10/01/16 0400 Results 24 hrs Laboratory Tests Test 09/30/16 12:20 09/30/16 14:42 09/30/16 17:25 09/30/16 21:51 Blood Gas Specimen Source Blood arterial Arterial Blood Date Drawn 09/30/2016 12:25:31 PM Arterial Blood pH (Temp corrected) 7.480 H Arterial Blood pCO2 (Temp correct) 32.0 L Arterial Blood pO2 (Temp corrected) 81.1 Arterial Blood HCO3 23.3 Arterial Blood Base Excess 0.4 Arterial Blood Oxygen Saturation 95.7 Raz Test ACCEPTAB Arterial Blood Gas Puncture Site Right Radial Arterial Blood Carboxyhemoglobin 0.3 Arterial Blood Methemoglobin 0.4 Blood Gas A-a O2 Differential 95.2 H Oxyhemoglobin Percent 95.0 Total Hemoglobin 12.0 Blood Gas Temperature 37.0 Blood Gas Actual Respiration Rate 18 Blood Gas Modality VENT - CPAP FiO2 30.0 Blood Gas Low PEEP Setting 5.0 Blood Gas Pressure Support 10 Blood Gas Notified Whom JLD Blood Gas Notified Time 09/30/2016 12:43:17 PM Bedside Glucose 220 224 H 193 Test 10/01/16 00:40 10/01/16 04:00 10/01/16 05:00 10/01/16 05:10 Bedside Glucose 175 169 White Blood Count 22.9 #H Red Blood Count 3.49 L Hemoglobin 9.6 L Hematocrit 30.1 L Mean Corpuscular Volume 86.2 Mean Corpuscular Hemoglobin 27.5 L Mean Corpuscular Hemoglobin Concent 31.9 L Red Cell Distribution Width 18.2 H Platelet Count 70 #L Mean Platelet Volume 11.3 H Neutrophils % 75.9 Lymphocytes % 9.8 L Monocytes % 12.4 H Eosinophils % 0.7 Basophils % 0.1 Nucleated Red Blood Cells % 1.9 H Neutrophils # 17.3 H Lymphocytes # 2.3 Monocytes # 2.8 H Eosinophils # 0.2 Basophils # 0.0 Nucleated Red Blood Cells # 0.4 H Differential Comment AUTO w/SCAN Sodium Level 138 Potassium Level 4.0 Chloride Level 102 Carbon Dioxide Level 28 Anion Gap 12 Blood Urea Nitrogen 67 H Creatinine 4.23 H Glucose Level 158 # Calcium Level 7.7 L Phosphorus Level 6.7 H Magnesium Level 2.2 Total Bilirubin 0.6 Direct Bilirubin 0.20 Indirect Bilirubin 0.4 Aspartate Amino Transf (AST/SGOT) 316 H Alanine Aminotransferase (ALT/SGPT) 567 H Alkaline Phosphatase 353 H Total Protein 4.8 L Albumin 2.2 L Globulin 2.60 Albumin/Globulin Ratio 0.84 Prothrombin Time 13.9 # Prothrombin Time Ratio 1.1 INR International Normalized Ratio 1.07 Activated Partial Thromboplast Time 34.7 Test 10/01/16 08:46 Bedside Glucose 169 Medications Current Medications Ticagrelor (Brilinta) 90 mg BID PO Last administered on 09/24/16t 21:16; Admin Dose 90 MG; Start 09/21/16 at 09:00; Status Future Hold Miscellaneous Information 1 ea NOTE XX ; Start 09/20/16 at 22:00 Glucose (Glutose) 15 gm Q15M PRN PO DECREASED GLUCOSE; Start 09/20/16 at 22:00 Glucose (Glutose) 22.5 gm Q15M PRN PO DECREASED GLUCOSE; Start 09/20/16 at 22: 00 Glucagon (Glucagen) 1 mg Q15M PRN IM DECREASED GLUCOSE; Start 09/20/16 at 22:00 Glucose (Glutose) 15 gm Q15M PRN BUCCAL DECREASED GLUCOSE; Start 09/20/16 at 22 :00 Acetaminophen (Tylenol Liquid) 650 mg Q4H PRN NGT PAIN AND OR ELEVATED TEMP Last administered on 09/27/16 05:14; Admin Dose 650 MG; Start 09/21/16 at 02:00 Eye Lubricant (Artificial Tears Oph) 2 drop QID BOTH EYES Last administered on 10/01/16 08:54; Admin Dose 2 DROP; Start 09/21/16 at 09:00 Dextrose (D50w Syringe) 25 ml Q15M PRN IV Till BS 80 mg/dL or above x2; Start 09/21/16 at 08:00 Dextrose (D50w Syringe) 50 ml Q15M PRN IV Till BS 80 mg/dL or above x2; Start 09/21/16 at 08:00 Atorvastatin Calcium (Lipitor) 80 mg HS NGT Last administered on 09/29/16 21: 19; Admin Dose 80 MG; Start 09/22/16 at 21:00 Insulin Aspart (Novolog Insulin Pen) NOVOLOG *MILD* ALGORI... Q4 SC Last administered on 10/01/16 08:52; Admin Dose 1 UNIT; Start 09/25/16 at 13:00 Pantoprazole (Protonix Iv) 40 mg AM IV Last administered on 10/01/16 08:53; Admin Dose 40 MG; Start 09/26/16 at 09:00 Epoetin Raj (Epogen (Esrd)) 10,000 units TuTa@17 SC Last administered on 17:35; Admin Dose 10,000 UNITS; Start 09/26/16 at 17:00 IV Flush (NS 10 ml) 10 ml PRN PRN IV IV PROTOCOL; Start 09/26/16 at 17:30 Aspirin (Aspirin) 81 mg DAILY NGT Last administered on 10/01/16 08:53; Admin Dose 81 MG; Start 09/27/16 at 09:00 Clopidogrel Bisulfate 75 mg 75 mg DAILY NGT Last administered on 10/01/16 08: 54; Admin Dose 75 MG; Start 09/27/16 at 09:00 Piperacillin Sod/ Tazobactam Sod (Zosyn 2.25gm/ 50ml (Pmx)) 50 ml @ 100 mls/hr Q8 IVPB Last administered on 10/01/16 05:15; Admin Dose 100 MLS/HR; Start at 14:00 Morphine Sulfate (morphine) 2 mg Q4H PRN IV PAIN Last administered on 16:50; Admin Dose 2 MG; Start 09/28/16 at 16:00 Metoprolol Tartrate (Lopressor) 25 mg BID GTB Last administered on 10/01/16 08 :54; Admin Dose 25 MG; Start 09/28/16 at 21:00 Insulin Glargine 33 unit 33 unit DAILY@08 SC Last administered on 10/01/16 08: 53; Admin Dose 33 UNIT; Start 09/30/16 at 08:00 Norepinephrine 16 mg/Dextrose 500 ml @ 1.87 mls/hr TITRATE IV ; Start 09/29/16 at 20:00 Bumetanide 25 mg/ Dextrose 250 ml @ 10 mls/hr Q24H IV ; Start 10/01/16 at 10:00 Dextrose/Sodium Chloride (D5-1/2ns) 1,000 ml @ 50 mls/hr Q20H IV Last administered on 10/01/16 09:38; Admin Dose 50 MLS/HR; Start 10/01/16 at 09:30 Assessment/Plan Chief Complaint/Hosp Course IMPRESSION 1. Status post Cardiac arrest. ST elevation [place] stent placement to RCA 2. Significant neurological recovery from initial encephalopathy 3. Acute renal failure, probably acute tubular necrosis injury. Now on hemodialysis 4. Status post Shock liver. 5. Status post hypoxemic respiratory failure now extubated Plan 1. Continue aspiration precautions nasal cannula 2. Continue renal recommendations. Hemodialysis as tolerated 3. Vasopressors if needed 4. Broad-spectrum antibiotic coverage. 5. Glycemic management. 6. Speech therapy evaluation 7. Physical therapy evaluation Disposition Continue ICU supportive care Problems: ZANDRA ROBISON MD, [facility] Oct 01, 2016 11:17
[2016-10-01] MEDS: BUMETANIDE 25 MG in DEXTROSE 5% 150 ML IV SCH (12:08)
--- NOTE | 2016-10-01 12:44 | CONS ---
Date/Time of Note Date/Time of Note DATE: 10/01/16 TIME: 12:41 Consult Date/Type/Reason Admit Date/Time Sep 20, 2016 at 19:21 Initial Consult Date 09/23/16 Type of Consultation: GI Ordering Provider: [facility]ANDR[facility] ROBISON MD, [facility] Subjective Extubated Alert and Responsive No abdominal complaints No overt GI bleeding Swallowing evaluation noted Objective Vital Signs Date Time Temp Pulse Resp B/P Pulse Ox O2 Delivery O2 Flow Rate FiO2 10/01/16 12:00 97.2 75 17 126/54 100 Nasal Cannula 2.0 09/30/16 11:42 30 Cheat: clear Cardiac: no m, r, g Abdomen: soft, non tender Intake and Output 09/30/16 09/30/16 10/01/16 15:00 23:00 07:00 Intake Total 706.24 ml 50 ml Output Total 1473 ml 37 ml 300 ml Balance -766.76 ml 13 ml -300 ml Results/Medications Result Diagram: 10/01/16 0400 10/01/16 0400 Results 24 hrs Laboratory Tests Test 09/30/16 14:42 09/30/16 17:25 09/30/16 21:51 10/01/16 00:40 Bedside Glucose 220 224 H 193 175 Test 10/01/16 04:00 10/01/16 05:00 10/01/16 05:10 10/01/16 08:46 White Blood Count 22.9 #H Red Blood Count 3.49 L Hemoglobin 9.6 L Hematocrit 30.1 L Mean Corpuscular Volume 86.2 Mean Corpuscular Hemoglobin 27.5 L Mean Corpuscular Hemoglobin Concent 31.9 L Red Cell Distribution Width 18.2 H Platelet Count 70 #L Mean Platelet Volume 11.3 H Neutrophils % 75.9 Lymphocytes % 9.8 L Monocytes % 12.4 H Eosinophils % 0.7 Basophils % 0.1 Nucleated Red Blood Cells % 1.9 H Neutrophils # 17.3 H Lymphocytes # 2.3 Monocytes # 2.8 H Eosinophils # 0.2 Basophils # 0.0 Nucleated Red Blood Cells # 0.4 H Differential Comment AUTO w/SCAN Sodium Level 138 Potassium Level 4.0 Chloride Level 102 Carbon Dioxide Level 28 Anion Gap 12 Blood Urea Nitrogen 67 H Creatinine 4.23 H Glucose Level 158 # Calcium Level 7.7 L Phosphorus Level 6.7 H Magnesium Level 2.2 Total Bilirubin 0.6 Direct Bilirubin 0.20 Indirect Bilirubin 0.4 Aspartate Amino Transf (AST/SGOT) 316 H Alanine Aminotransferase (ALT/SGPT) 567 H Alkaline Phosphatase 353 H Total Protein 4.8 L Albumin 2.2 L Globulin 2.60 Albumin/Globulin Ratio 0.84 Prothrombin Time 13.9 # Prothrombin Time Ratio 1.1 INR International Normalized Ratio 1.07 Activated Partial Thromboplast Time 34.7 Bedside Glucose 169 169 Medications Current Medications Ticagrelor (Brilinta) 90 mg BID PO Last administered on 09/24/16 21:16; Admin Dose 90 MG; Start 09/21/16 at 09:00; Status Future Hold Miscellaneous Information 1 ea NOTE XX ; Start 09/20/16 at 22:00 Glucose (Glutose) 15 gm Q15M PRN PO DECREASED GLUCOSE; Start 09/20/16 at 22:00 Glucose (Glutose) 22.5 gm Q15M PRN PO DECREASED GLUCOSE; Start 09/20/16 at 22: 00 Glucagon (Glucagen) 1 mg Q15M PRN IM DECREASED GLUCOSE; Start 09/20/16 at 22:00 Glucose (Glutose) 15 gm Q15M PRN BUCCAL DECREASED GLUCOSE; Start 09/20/16 at 22 :00 Acetaminophen (Tylenol Liquid) 650 mg Q4H PRN NGT PAIN AND OR ELEVATED TEMP Last administered on 09/27/16 05:14; Admin Dose 650 MG; Start 09/21/16 at 02:00 Eye Lubricant (Artificial Tears Oph) 2 drop QID BOTH EYES Last administered on 10/01/16 12:08; Admin Dose 2 DROP; Start 09/21/16 at 09:00 Dextrose (D50w Syringe) 25 ml Q15M PRN IV Till BS 80 mg/dL or above x2; Start 09/21/16 at 08:00 Dextrose (D50w Syringe) 50 ml Q15M PRN IV Till BS 80 mg/dL or above x2; Start 09/21/16 at 08:00 Atorvastatin Calcium (Lipitor) 80 mg HS NGT Last administered on 09/29/16 21: 19; Admin Dose 80 MG; Start 09/22/16 at 21:00 Insulin Aspart (Novolog Insulin Pen) NOVOLOG *MILD* ALGORI... Q4 SC Last administered on 10/01/16 08:52; Admin Dose 1 UNIT; Start 09/25/16 at 13:00 Pantoprazole (Protonix Iv) 40 mg AM IV Last administered on 10/01/16 08:53; Admin Dose 40 MG; Start 09/26/16 at 09:00 Epoetin Raj (Epogen (Esrd)) 10,000 units TuThSa@17 SC Last administered on 17:35; Admin Dose 10,000 UNITS; Start 09/26/16 at 17:00 IV Flush (NS 10 ml) 10 ml PRN PRN IV IV PROTOCOL; Start 09/26/16 at 17:30 Aspirin (Aspirin) 81 mg DAILY NGT Last administered on 10/01/16 08:53; Admin Dose 81 MG; Start 09/27/16 at 09:00 Clopidogrel Bisulfate 75 mg 75 mg DAILY NGT Last administered on 10/01/16 08: 54; Admin Dose 75 MG; Start 09/27/16 at 09:00 Piperacillin Sod/ Tazobactam Sod (Zosyn 2.25gm/ 50ml (Pmx)) 50 ml @ 100 mls/hr Q8 IVPB Last administered on 10/01/16 05:15; Admin Dose 100 MLS/HR; Start at 14:00 Morphine Sulfate (morphine) 2 mg Q4H PRN IV PAIN Last administered on 16:50; Admin Dose 2 MG; Start 09/28/16 at 16:00 Metoprolol Tartrate (Lopressor) 25 mg BID GTB Last administered on 10/01/16 08 :54; Admin Dose 25 MG; Start 09/28/16 at 21:00 Insulin Glargine 33 unit 33 unit DAILY@08 SC Last administered on 10/01/16 08: 53; Admin Dose 33 UNIT; Start 09/30/16 at 08:00 Norepinephrine 16 mg/Dextrose 500 ml @ 1.87 mls/hr TITRATE IV ; Start 09/29/16 at 20:00 Bumetanide 25 mg/ Dextrose 250 ml @ 10 mls/hr Q24H IV Last administered on 12:08; Admin Dose 10 MLS/HR; Start 10/01/16 at 10:00 Dextrose/Sodium Chloride (D5-1/2ns) 1,000 ml @ 50 mls/hr Q20H IV Last administered on 10/01/16t 09:38; Admin Dose 50 MLS/HR; Start 10/01/16 at 09:30 Assessment/Plan Chief Complaint/Hosp Course Impression: 1. GI bleed - stable, no further bleeding 2. Shock Liver - note LFTs returning towards normal and PT now normal Plan: 1. Continue IV Protonix, may switch to po once able to swallow 2. Avoid EGD unless substantial rebleed given recent IA and overall status 3. I will sign off for now. Will be happy to see again at your request Problems: TOMASA GLASS MD Oct 01, 2016 12:44
--- NOTE | 2016-10-01 12:46 | PN ---
DATE: PALLIATIVE CARE PROGRESS NOTE SUBJECTIVE: Patient has been successfully extubated. She remains in the intensive care unit. I le ve spoken to patient and family members. There is no pain management issue at this time. There is a good psychosocial support from family members. She is a CHEMICAL CODE. Patient will be transferr ed out of the intensive care unit. She will need to have long-term medical care and psychosocial carmona pport. PHYSICAL EXAMINATION: She is oriented x3. Cranial nerves II through XII are grossly intact. Motor and sensory findings grossly within normal limits. ASSESSMENT AND PLAN: As above. Will continue to support family members and follow her clinical cou rse in-house. Dictated By: DYLAN GIBBONS MD, LP/JERROD Conf#: [id number] DID#: [id number]
--- NOTE | 2016-10-01 16:35 | PN ---
Date/Time of Note Date/Time of Note DATE: 10/01/16 TIME: 16:26 Assessment/Plan VTE Prophylaxis VTE Prophylaxis Intervention: other (asa & plavix) Lines/Catheters IV Catheter Type (from Nrsg): PICC Line Central line still needed: No Urinary Cath still in place: Yes Reason Cath still needed: other (indicate) (still bed bound) Assessment/Plan Assessment/Plan 1. s/p stemi--s/p rca stent 2. arf--extubated 3. rob--urinating 4. anemia-- status quo 5. encephalopathy--awake & responding appropriately 6. dm--after extubation 7. high wbc--after extubation 8. low calc--7.8 9. code change to full code 10. pad--toes w/ early mild gang ---per pulm ---per cards ---per renal ---full liquid w/ assistance only ---full PT exercises ---mouth suction prn ---more calc supp ---inc lantus 40u Subjective 24 Hr Interval Summary Free Text/Dictation extubated, congested weak coughs, responds all questions w/ nods or shaking head Exam/Review of Systems Vital Signs Vitals Vital Signs Date Time Temp Pulse Resp B/P Pulse Ox O2 Delivery O2 Flow Rate FiO2 10/01/16 16:00 72 26 133/62 95 Room Air 10/01/16 15:18 2.0 10/01/16 12:00 97.2 09/30/16 11:42 30 Intake and Output 09/30/16 09/30/16 10/01/16 15:00 23:00 07:00 Intake Total 706.24 ml 50 ml 100 ml Output Total 1473 ml 37 ml 312 ml Balance -766.76 ml 13 ml -212 ml Exam Constitutional: non-verbal, obese Respiratory: diminished breath sounds Cardiovascular: diastolic murmur Extremities: edema Results Result Diagram: 10/01/160 10/01/16 0400 Results 24 hrs Laboratory Tests Test 09/30/16 17:25 09/30/16 21:51 10/01/16 00:40 10/01/16 04:00 Bedside Glucose 224 H 193 175 White Blood Count 22.9 #H Red Blood Count 3.49 L Hemoglobin 9.6 L Hematocrit 30.1 L Mean Corpuscular Volume 86.2 Mean Corpuscular Hemoglobin 27.5 L Mean Corpuscular Hemoglobin Concent 31.9 L Red Cell Distribution Width 18.2 H Platelet Count 70 #L Mean Platelet Volume 11.3 H Neutrophils % 75.9 Lymphocytes % 9.8 L Monocytes % 12.4 H Eosinophils % 0.7 Basophils % 0.1 Nucleated Red Blood Cells % 1.9 H Neutrophils # 17.3 H Lymphocytes # 2.3 Monocytes # 2.8 H Eosinophils # 0.2 Basophils # 0.0 Nucleated Red Blood Cells # 0.4 H Differential Comment AUTO w/SCAN Sodium Level 138 Potassium Level 4.0 Chloride Level 102 Carbon Dioxide Level 28 Anion Gap 12 Blood Urea Nitrogen 67 H Creatinine 4.23 H Glucose Level 158 # Calcium Level 7.7 L Phosphorus Level 6.7 H Magnesium Level 2.2 Total Bilirubin 0.6 Direct Bilirubin 0.20 Indirect Bilirubin 0.4 Aspartate Amino Transf (AST/SGOT) 316 H Alanine Aminotransferase (ALT/SGPT) 567 H Alkaline Phosphatase 353 H Total Protein 4.8 L Albumin 2.2 L Globulin 2.60 Albumin/Globulin Ratio 0.84 Test 10/01/16 05:00 10/01/16 05:10 10/01/16 08:46 10/01/16 12:50 Prothrombin Time 13.9 # Prothrombin Time Ratio 1.1 INR International Normalized Ratio 1.07 Activated Partial Thromboplast Time 34.7 Bedside Glucose 169 169 205 Medications Medications Current Medications Ticagrelor (Brilinta) 90 mg BID PO Last administered on 09/24/16t 21:16; Admin Dose 90 MG; Start 09/21/16 at 09:00; Status Future Hold Miscellaneous Information 1 ea NOTE XX ; Start 09/20/16 at 22:00 Glucose (Glutose) 15 gm Q15M PRN PO DECREASED GLUCOSE; Start 09/20/16 at 22:00 Glucose (Glutose) 22.5 gm Q15M PRN PO DECREASED GLUCOSE; Start 09/20/16 at 22: 00 Glucagon (Glucagen) 1 mg Q15M PRN IM DECREASED GLUCOSE; Start 09/20/16 at 22:00 Glucose (Glutose) 15 gm Q15M PRN BUCCAL DECREASED GLUCOSE; Start 09/20/16 at 22 :00 Acetaminophen (Tylenol Liquid) 650 mg Q4H PRN NGT PAIN AND OR ELEVATED TEMP Last administered on 09/27/16 05:14; Admin Dose 650 MG; Start 09/21/16 at 02:00 Eye Lubricant (Artificial Tears Oph) 2 drop QID BOTH EYES Last administered on 10/01/16 12:08; Admin Dose 2 DROP; Start 09/21/16 at 09:00 Dextrose (D50w Syringe) 25 ml Q15M PRN IV Till BS 80 mg/dL or above x2; Start 09/21/16 at 08:00 Dextrose (D50w Syringe) 50 ml Q15M PRN IV Till BS 80 mg/dL or above x2; Start 09/21/16 at 08:00 Atorvastatin Calcium (Lipitor) 80 mg HS NGT Last administered on 09/29/16 21: 19; Admin Dose 80 MG; Start 09/22/16 at 21:00 Insulin Aspart (Novolog Insulin Pen) NOVOLOG *MILD* ALGORI... Q4 SC Last administered on 10/01/16 12:52; Admin Dose 2 UNIT; Start 09/25/16 at 13:00 Pantoprazole (Protonix Iv) 40 mg AM IV Last administered on 10/01/16 08:53; Admin Dose 40 MG; Start 09/26/16 at 09:00 Epoetin Raj (Epogen (Esrd)) 10,000 units TuThSa@17 SC Last administered on 17:35; Admin Dose 10,000 UNITS; Start 09/26/16 at 17:00 IV Flush (NS 10 ml) 10 ml PRN PRN IV IV PROTOCOL; Start 09/26/16 at 17:30 Aspirin (Aspirin) 81 mg DAILY NGT Last administered on 10/01/16 08:53; Admin Dose 81 MG; Start 09/27/16 at 09:00 Clopidogrel Bisulfate 75 mg 75 mg DAILY NGT Last administered on 10/01/16 08: 54; Admin Dose 75 MG; Start 09/27/16 at 09:00 Piperacillin Sod/ Tazobactam Sod (Zosyn 2.25gm/ 50ml (Pmx)) 50 ml @ 100 mls/hr Q8 IVPB Last administered on 10/01/16 14:58; Admin Dose 100 MLS/HR; Start at 14:00 Morphine Sulfate (morphine) 2 mg Q4H PRN IV PAIN Last administered on 16:50; Admin Dose 2 MG; Start 09/28/16 at 16:00 Metoprolol Tartrate 25 mg 25 mg BID GTB Last administered on 10/01/16 08:54; Admin Dose 25 MG; Start 09/28/16 at 21:00 Norepinephrine 16 mg/Dextrose 500 ml @ 1.87 mls/hr TITRATE IV ; Start 09/29/16 at 20:00 Bumetanide 25 mg/ Dextrose 250 ml @ 10 mls/hr Q24H IV Last administered on 12:08; Admin Dose 10 MLS/HR; Start 10/01/16 at 10:00 Dextrose/Sodium Chloride 1,000 ml @ 50 mls/hr Q20H IV Last administered on 09:38; Admin Dose 50 MLS/HR; Start 10/01/16 at 09:30 Calcium Gluconate/ Sodium Chloride (Ca Gluc/NS) 120 ml @ 60 mls/hr ONCE IVPB ; Start 10/01/16 at 17:30; Stop 10/01/16 at 19:29 Insulin Glargine (Lantus) 40 unit DAILY@08 SC ; Start 10/02/16 at 08:00 SHAMA LOPEZ MD Oct 01, 2016 16:35
--- NOTE | 2016-10-01 16:40 | PN ---
Date/Time of Note Date/Time of Note DATE: 09/30/16 TIME: 12:35 Assessment/Plan VTE Prophylaxis VTE Prophylaxis Intervention: other (asa & plavix) Lines/Catheters IV Catheter Type (from Nrsg): PICC Line Central line still needed: No Urinary Cath still in place: Yes Reason Cath still needed: other (indicate) (full icu bed bound) Assessment/Plan Assessment/Plan 1. arf 2. s/p stemi--s/p rca stent 3. rob--urinating 4. dm 5. encephalopathy --awakening more ---per pulm-- awaiting extubation ---per cards ---per renal ---per neuro ---per gi ---replace calc supp ---extensive resp therapy ---PT eval/ stimulation adl-rom exercises Subjective 24 Hr Interval Summary Subjective hx not possible: pt critical Exam/Review of Systems Vital Signs Vitals Vital Signs Date Time Temp Pulse Resp B/P Pulse Ox O2 Delivery O2 Flow Rate FiO2 10/01/16 16:00 72 26 133/62 95 Room Air 10/01/16 15:18 2.0 10/01/16 12:00 97.2 09/30/16 11:42 30 Intake and Output 09/30/16 09/30/16 10/01/16 15:00 23:00 07:00 Intake Total 706.24 ml 50 ml 100 ml Output Total 1473 ml 37 ml 312 ml Balance -766.76 ml 13 ml -212 ml Exam Constitutional: other (responds w/ opening eyes, nodding head) Respiratory: diminished breath sounds Cardiovascular: diastolic murmur Extremities: edema Results Result Diagram: 10/01/160 10/01/16 0400 Results 24 hrs Laboratory Tests Test 09/30/16 17:25 09/30/16 21:51 10/01/16 00:40 10/01/16 04:00 Bedside Glucose 224 H 193 175 White Blood Count 22.9 #H Red Blood Count 3.49 L Hemoglobin 9.6 L Hematocrit 30.1 L Mean Corpuscular Volume 86.2 Mean Corpuscular Hemoglobin 27.5 L Mean Corpuscular Hemoglobin Concent 31.9 L Red Cell Distribution Width 18.2 H Platelet Count 70 #L Mean Platelet Volume 11.3 H Neutrophils % 75.9 Lymphocytes % 9.8 L Monocytes % 12.4 H Eosinophils % 0.7 Basophils % 0.1 Nucleated Red Blood Cells % 1.9 H Neutrophils # 17.3 H Lymphocytes # 2.3 Monocytes # 2.8 H Eosinophils # 0.2 Basophils # 0.0 Nucleated Red Blood Cells # 0.4 H Differential Comment AUTO w/SCAN Sodium Level 138 Potassium Level 4.0 Chloride Level 102 Carbon Dioxide Level 28 Anion Gap 12 Blood Urea Nitrogen 67 H Creatinine 4.23 H Glucose Level 158 # Calcium Level 7.7 L Phosphorus Level 6.7 H Magnesium Level 2.2 Total Bilirubin 0.6 Direct Bilirubin 0.20 Indirect Bilirubin 0.4 Aspartate Amino Transf (AST/SGOT) 316 H Alanine Aminotransferase (ALT/SGPT) 567 H Alkaline Phosphatase 353 H Total Protein 4.8 L Albumin 2.2 L Globulin 2.60 Albumin/Globulin Ratio 0.84 Test 10/01/16 05:00 10/01/16 05:10 10/01/16 08:46 10/01/16 12:50 Prothrombin Time 13.9 # Prothrombin Time Ratio 1.1 INR International Normalized Ratio 1.07 Activated Partial Thromboplast Time 34.7 Bedside Glucose 169 169 205 Medications Medications Current Medications Ticagrelor (Brilinta) 90 mg BID PO Last administered on 09/24/16 21:16; Admin Dose 90 MG; Start 09/21/16 at 09:00; Status Future Hold Miscellaneous Information 1 ea NOTE XX ; Start 09/20/16 at 22:00 Glucose (Glutose) 15 gm Q15M PRN PO DECREASED GLUCOSE; Start 09/20/16 at 22:00 Glucose (Glutose) 22.5 gm Q15M PRN PO DECREASED GLUCOSE; Start 09/20/16 at 22: 00 Glucagon (Glucagen) 1 mg Q15M PRN IM DECREASED GLUCOSE; Start 09/20/16 at 22:00 Glucose (Glutose) 15 gm Q15M PRN BUCCAL DECREASED GLUCOSE; Start 09/20/16 at 22 :00 Acetaminophen (Tylenol Liquid) 650 mg Q4H PRN NGT PAIN AND OR ELEVATED TEMP Last administered on 09/27/16 05:14; Admin Dose 650 MG; Start 09/21/16 at 02:00 Eye Lubricant (Artificial Tears Oph) 2 drop QID BOTH EYES Last administered on 10/01/16 12:08; Admin Dose 2 DROP; Start 09/21/16 at 09:00 Dextrose (D50w Syringe) 25 ml Q15M PRN IV Till BS 80 mg/dL or above x2; Start 09/21/16 at 08:00 Dextrose (D50w Syringe) 50 ml Q15M PRN IV Till BS 80 mg/dL or above x2; Start 09/21/16 at 08:00 Atorvastatin Calcium (Lipitor) 80 mg HS NGT Last administered on 09/29/16 21: 19; Admin Dose 80 MG; Start 09/22/16 at 21:00 Insulin Aspart (Novolog Insulin Pen) NOVOLOG *MILD* ALGORI... Q4 SC Last administered on 10/01/16 12:52; Admin Dose 2 UNIT; Start 09/25/16 at 13:00 Pantoprazole (Protonix Iv) 40 mg AM IV Last administered on 10/01/16 08:53; Admin Dose 40 MG; Start 09/26/16 at 09:00 Epoetin Raj (Epogen (Esrd)) 10,000 units TuThSa@17 SC Last administered on 17:35; Admin Dose 10,000 UNITS; Start 09/26/16 at 17:00 IV Flush (NS 10 ml) 10 ml PRN PRN IV IV PROTOCOL; Start 09/26/16 at 17:30 Aspirin (Aspirin) 81 mg DAILY NGT Last administered on 10/01/16 08:53; Admin Dose 81 MG; Start 09/27/16 at 09:00 Clopidogrel Bisulfate 75 mg 75 mg DAILY NGT Last administered on 10/01/16 08: 54; Admin Dose 75 MG; Start 09/27/16 at 09:00 Piperacillin Sod/ Tazobactam Sod (Zosyn 2.25gm/ 50ml (Pmx)) 50 ml @ 100 mls/hr Q8 IVPB Last administered on 10/01/16 14:58; Admin Dose 100 MLS/HR; Start at 14:00 Morphine Sulfate (morphine) 2 mg Q4H PRN IV PAIN Last administered on 16:50; Admin Dose 2 MG; Start 09/28/16 at 16:00 Metoprolol Tartrate 25 mg 25 mg BID GTB Last administered on 10/01/16 08:54; Admin Dose 25 MG; Start 09/28/16 at 21:00 Norepinephrine 16 mg/Dextrose 500 ml @ 1.87 mls/hr TITRATE IV ; Start 09/29/16 at 20:00 Bumetanide 25 mg/ Dextrose 250 ml @ 10 mls/hr Q24H IV Last administered on 12:08; Admin Dose 10 MLS/HR; Start 10/01/16 at 10:00 Dextrose/Sodium Chloride 1,000 ml @ 50 mls/hr Q20H IV Last administered on 09:38; Admin Dose 50 MLS/HR; Start 10/01/16 at 09:30 Calcium Gluconate/ Sodium Chloride (Ca Gluc/NS) 120 ml @ 60 mls/hr ONCE IVPB ; Start 10/01/16 at 17:30; Stop 10/01/16 at 19:29 Insulin Glargine (Lantus) 40 unit DAILY@08 SC ; Start 10/02/16 at 08:00 SHAMA LOPEZ MD Oct 01, 2016 16:40
[2016-10-01] MEDS ORDERED: NA PHOSPHATE/BIPHOS 133 ML ENEMA PR PRN (17:00)
[2016-10-01] MEDS ORDERED: MAGNESIUM HYDROXIDE 30ML CUP PO PRN (17:00)
[2016-10-01] MEDS ORDERED: CALCIUM GLUCONATE 10% 2 GM in SOD CHLORIDE 0.9% 100 ML IVPB SCH (17:30)
[2016-10-01] MEDS: EPOETIN 10000 UNITS/1 ML INJ (ESRD) SC SCH (17:32)
[2016-10-01] MEDS: ATORVASTATIN 80 MG TAB NGT SCH (20:19)
[2016-10-02] VITALS (24 sets, daily range): BP systolic 110–163; BP diastolic 51–132; PULSE 66–78; RESP 16–22
[2016-10-02] MEDS: INSULIN ASPART [NOVOLOG] 3 ML PEN SC SCH ×6 (01:32→20:52)
[2016-10-02 05:52] LABS: ADD SCAN DIFF NO
[2016-10-02] MEDS: PIPER-TAZO 2.25 GM (PMX) 50 ML IVPB SCH ×3 (06:01→20:52)
[2016-10-02] MEDS: DEXTROSE 5%-0.45% NACL 1,000 ML IV SCH (06:07)
[2016-10-02 06:09] LABS: ABNORMAL IP MESSAGE 1; BASOPHILS % 0.1 % (0.0-2.0); EOSINOPHILS # 0.2 10^3/ul (0.0-0.5); EOSINOPHILS % 0.8 % (0.0-7.0); HEMATOCRIT 29.8 % (37.0-47.0); HEMOGLOBIN 9.1 g/dl (12.0-16.0); LYMPHOCYTES # 1.8 10^3/ul (0.8-2.9); LYMPHOCYTES % 7.6 % (15.0-51.0); MEAN CORPUSCULAR HGB CONC 30.5 g/dl (32.0-37.0); MEAN CORPUSCULAR VOLUME 88.4 fl (82.0-101.0); MEAN PLATELET VOLUME 12.5 fl (7.4-10.4); MONOCYTE # 1.9 10^3/ul (0.3-0.9); MONOCYTES % 8.2 % (0.0-11.0); NEUTROPHIL # 18.9 10^3/ul (1.6-7.5); NEUTROPHILS % 82.3 % (39.0-77.0); NUCLEATED RED BLOOD CELLS # 0.5 10^3/ul (0.0-0.0); PLATELET COUNT 103 10^3/UL (140-415); RED BLOOD COUNT 3.37 10^6/ul (4.20-5.40); RED CELL DISTRIBUTION WIDTH 18.6 % (11.5-14.5)
[2016-10-02 06:33] LABS: ALBUMIN 2.3 g/dl (3.3-4.9); POTASSIUM 3.9 mmol/L (3.5-5.1)
[2016-10-02 06:36] LABS: ALBUMIN/GLOBULIN RATIO 0.82; BILIRUBIN,DIRECT 0.1 mg/dl (0.00-0.20); BILIRUBIN,INDIRECT 0.4 mg/dl (0-1.1); BILIRUBIN,TOTAL 0.5 mg/dl (0.2-1.3); CALCIUM 8.2 mg/dl (8.4-10.2); PHOSPHORUS 8.7 mg/dl (2.5-4.9); TOTAL PROTEIN 5.1 g/dl (6.1-8.1)
[2016-10-02 06:37] LABS: MAGNESIUM 2.3 mg/dl (1.7-2.5)
--- NOTE | 2016-10-02 06:40 | PN ---
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 Subjective 24 Hr Interval Summary Free Text/Dictation Patient extubated now. Per potato bucker nursing, she will nod appropriately to questions. She coughed when administered pills crushed in applesauce yesterday Subjective hx not possible: pt non-verbal Exam/Review of Systems Vital Signs Vitals Vital Signs Date Time Temp Pulse Resp B/P Pulse Ox O2 Delivery O2 Flow Rate FiO2 10/02/16 04:00 77 10/02/16 04:00 97.8 17 144/77 100 Nasal Cannula 3.0 10/02/16 01:52 27 Intake and Output 10/01/16 10/01/16 10/02/16 15:00 23:00 07:00 Intake Total 405 ml 470 ml 330 ml Output Total 135 ml 200 ml 250 ml Balance 270 ml 270 ml 80 ml Exam Constitutional: obese, No distress Head: atraumatic, normocephalic ENMT: nl external ears & nose, nl lips & teeth Neck: No bruits, No jvd Respiratory: clear to auscultation (anteriorly) Cardiovascular: regular rate and rhythm, No murmurs/extra sounds Gastrointestinal: non-tender, soft Extremities: edema Skin: nl turgor Results Result Diagram: 10/02/16 0540 10/01/16 0400 Results 24 hrs Laboratory Tests Test 10/01/16 08:46 10/01/16 12:50 10/01/16 20:18 10/02/16 01:17 Bedside Glucose 169 205 188 210 Test 10/02/16 05:40 10/02/16 05:58 White Blood Count 23.0 H Red Blood Count 3.37 L Hemoglobin 9.1 L Hematocrit 29.8 L Mean Corpuscular Volume 88.4 Mean Corpuscular Hemoglobin 27.0 L Mean Corpuscular Hemoglobin Concent 30.5 L Red Cell Distribution Width 18.6 H Platelet Count 103 #L Mean Platelet Volume 12.5 H Neutrophils % 82.3 H Lymphocytes % 7.6 L Monocytes % 8.2 Eosinophils % 0.8 Basophils % 0.1 Nucleated Red Blood Cells % 2.0 H Neutrophils # 18.9 H Lymphocytes # 1.8 Monocytes # 1.9 H Eosinophils # 0.2 Basophils # 0.0 Nucleated Red Blood Cells # 0.5 H Bedside Glucose 211 Medications Medications Current Medications Ticagrelor (Brilinta) 90 mg BID PO Last administered on 09/24/16 21:16; Admin Dose 90 MG; Start 09/21/16 at 09:00; Status Future Hold Miscellaneous Information 1 ea NOTE XX ; Start 09/20/16 at 22:00 Glucose (Glutose) 15 gm Q15M PRN PO DECREASED GLUCOSE; Start 09/20/16 at 22:00 Glucose (Glutose) 22.5 gm Q15M PRN PO DECREASED GLUCOSE; Start 09/20/16 at 22: 00 Glucagon (Glucagen) 1 mg Q15M PRN IM DECREASED GLUCOSE; Start 09/20/16 at 22:00 Glucose (Glutose) 15 gm Q15M PRN BUCCAL DECREASED GLUCOSE; Start 09/20/16 at 22 :00 Acetaminophen (Tylenol Liquid) 650 mg Q4H PRN NGT PAIN AND OR ELEVATED TEMP Last administered on 09/27/16 05:14; Admin Dose 650 MG; Start 09/21/16 at 02:00 Eye Lubricant (Artificial Tears Oph) 2 drop QID BOTH EYES Last administered on 10/01/16 20:19; Admin Dose 2 DROP; Start 09/21/16 at 09:00 Dextrose (D50w Syringe) 25 ml Q15M PRN IV Till BS 80 mg/dL or above x2; Start 09/21/16 at 08:00 Dextrose (D50w Syringe) 50 ml Q15M PRN IV Till BS 80 mg/dL or above x2; Start 09/21/16 at 08:00 Atorvastatin Calcium (Lipitor) 80 mg HS NGT Last administered on 10/01/16 20: 19; Admin Dose 80 MG; Start 09/22/16 at 21:00 Insulin Aspart (Novolog Insulin Pen) NOVOLOG *MILD* ALGORI... Q4 SC Last administered on 10/02/16 06:00; Admin Dose 2 UNIT; Start 09/25/16 at 13:00 Pantoprazole (Protonix Iv) 40 mg AM IV Last administered on 10/01/16 08:53; Admin Dose 40 MG; Start 09/26/16 at 09:00 Epoetin Raj (Epogen (Esrd)) 10,000 units TuThSa@17 SC Last administered on 17:32; Admin Dose 10,000 UNITS; Start 09/26/16 at 17:00 IV Flush (NS 10 ml) 10 ml PRN PRN IV IV PROTOCOL; Start 09/26/16 at 17:30 Aspirin (Aspirin) 81 mg DAILY NGT Last administered on 10/01/16 08:53; Admin Dose 81 MG; Start 09/27/16 at 09:00 Clopidogrel Bisulfate 75 mg 75 mg DAILY NGT Last administered on 10/01/16 08: 54; Admin Dose 75 MG; Start 09/27/16 at 09:00 Piperacillin Sod/ Tazobactam Sod (Zosyn 2.25gm/ 50ml (Pmx)) 50 ml @ 100 mls/hr Q8 IVPB Last administered on 10/02/16 06:01; Admin Dose 100 MLS/HR; Start at 14:00 Morphine Sulfate (morphine) 2 mg Q4H PRN IV PAIN Last administered on 16:50; Admin Dose 2 MG; Start 09/28/16 at 16:00 Metoprolol Tartrate 25 mg 25 mg BID GTB Last administered on 10/01/16 20:19; Admin Dose 25 MG; Start 09/28/16 at 21:00 Norepinephrine 16 mg/Dextrose 500 ml @ 1.87 mls/hr TITRATE IV ; Start 09/29/16 at 20:00 Bumetanide 25 mg/ Dextrose 250 ml @ 10 mls/hr Q24H IV Last administered on 12:08; Admin Dose 10 MLS/HR; Start 10/01/16 at 10:00 Dextrose/Sodium Chloride (D5-1/2ns) 1,000 ml @ 50 mls/hr Q20H IV Last administered on 10/02/16t 06:07; Admin Dose 50 MLS/HR; Start 10/01/16 at 09:30 Insulin Glargine (Lantus) 40 unit DAILY@08 SC ; Start 10/02/16 at 08:00 Magnesium Hydroxide (Milk Of Mag) 30 ml DAILY PRN PO CONSTIPATION; Start at 17:00 Sodium Biphosphate/ Sodium Phosphate (Fleet Enema) 133 ml DAILY PRN [place] CONSTIPATION; Start 10/01/16 at 17:00 Procedures Procedures telemetry demonstrates normal sinus rhythm BENJAMIN OSEGUERA Oct 02, 2016 06:40
[2016-10-02 06:59] LABS: CREATININE 4.78 mg/dl (0.44-1.00)
--- NOTE | 2016-10-02 08:06 | CONS ---
Date/Time of Note Date/Time of Note DATE: 10/02/16 TIME: 08:01 Assessment/Plan Assessment/Plan Chief Complaint/Hosp Course 1. Acute Renal Failure due to ATN , nonoliguric . She has had 2 hemodialysis treatments . next dialysis to be determined . I want to see if I can stimulate urine output with BUMEX drip . Will continue Bumex drip . No indication for dialysis now .I am hoping that her renal function will start to recover . If not will do more dialysis . 2. ALOC , she is now extubated and she is now more responsive and following commands. . 3. liver enzyme elevation due to anoxia , enzymes are decreasing . 4. hypotension has resolved 5. hypocalcemia/hypoalbuminemia , her calcium level has increased. 6. GI bleeding , will transfuse blood , bleeding seems to have stopped 7. peripheral vascular disease , with one blue L toe . 8. will order speech therapy evaluation . Problems: Consultation Date/Type/Reason Admit Date/Time Sep 20, 2016 at 19:21 Initial Consult Date 09/23/16 Type of Consultation: GI Referring Provider: ZANDRA ROBISON MD, [facility] 24 HR Interval Summary Free Text/Dictation She is now in the ICU . She was extubated 2 days ago . She is lethargic but does follow simple commands . Constitutional: no complaints Exam/Review of Systems Vital Signs Vitals Vital Signs Date Time Temp Pulse Resp B/P Pulse Ox O2 Delivery O2 Flow Rate FiO2 10/02/16 07:00 77 21 143/75 96 10/02/16 04:00 97.8 Nasal Cannula 3.0 10/02/16 01:52 27 Intake and Output 10/01/16 10/01/16 10/02/16 15:00 23:00 07:00 Intake Total 405 ml 470 ml 390 ml Output Total 135 ml 200 ml 450 ml Balance 270 ml 270 ml -60 ml Exam Constitutional: alert Respiratory: clear to auscultation, diminished breath sounds Cardiovascular: regular rate and rhythm Gastrointestinal: soft Extremities: edema Neurological: lethargic Results Result Diagram: 10/02/16 0540 10/02/16 0540 Results 24 hrs Laboratory Tests Test 10/01/16 08:46 10/01/16 12:50 10/01/16 20:18 10/02/16 01:17 Bedside Glucose 169 205 188 210 Test 10/02/16 05:40 10/02/16 05:58 White Blood Count 23.0 H Red Blood Count 3.37 L Hemoglobin 9.1 L Hematocrit 29.8 L Mean Corpuscular Volume 88.4 Mean Corpuscular Hemoglobin 27.0 L Mean Corpuscular Hemoglobin Concent 30.5 L Red Cell Distribution Width 18.6 H Platelet Count 103 #L Mean Platelet Volume 12.5 H Neutrophils % 82.3 H Lymphocytes % 7.6 L Monocytes % 8.2 Eosinophils % 0.8 Basophils % 0.1 Nucleated Red Blood Cells % 2.0 H Neutrophils # 18.9 H Lymphocytes # 1.8 Monocytes # 1.9 H Eosinophils # 0.2 Basophils # 0.0 Nucleated Red Blood Cells # 0.5 H Sodium Level 140 Potassium Level 3.9 Chloride Level 102 Carbon Dioxide Level 27 Anion Gap 15 Blood Urea Nitrogen 77 H Creatinine 4.78 H Glucose Level 228 H Calcium Level 8.2 L Phosphorus Level 8.7 #H Magnesium Level 2.3 Total Bilirubin 0.5 Direct Bilirubin 0.10 Indirect Bilirubin 0.4 Aspartate Amino Transf (AST/SGOT) 224 H Alanine Aminotransferase (ALT/SGPT) 464 H Alkaline Phosphatase 301 H Total Protein 5.1 L Albumin 2.3 L Globulin 2.80 Albumin/Globulin Ratio 0.82 Bedside Glucose 211 Medications Medications Current Medications Ticagrelor (Brilinta) 90 mg BID PO Last administered on 09/24/16 21:16; Admin Dose 90 MG; Start 09/21/16 at 09:00; Status Future Hold Miscellaneous Information 1 ea NOTE XX ; Start 09/20/16 at 22:00 Glucose (Glutose) 15 gm Q15M PRN PO DECREASED GLUCOSE; Start 09/20/16 at 22:00 Glucose (Glutose) 22.5 gm Q15M PRN PO DECREASED GLUCOSE; Start 09/20/16 at 22: 00 Glucagon (Glucagen) 1 mg Q15M PRN IM DECREASED GLUCOSE; Start 09/20/16 at 22:00 Glucose (Glutose) 15 gm Q15M PRN BUCCAL DECREASED GLUCOSE; Start 09/20/16 at 22 :00 Acetaminophen (Tylenol Liquid) 650 mg Q4H PRN NGT PAIN AND OR ELEVATED TEMP Last administered on 09/27/16 05:14; Admin Dose 650 MG; Start 09/21/16 at 02:00 Eye Lubricant (Artificial Tears Oph) 2 drop QID BOTH EYES Last administered on 10/01/16 20:19; Admin Dose 2 DROP; Start 09/21/16 at 09:00 Dextrose (D50w Syringe) 25 ml Q15M PRN IV Till BS 80 mg/dL or above x2; Start 09/21/16 at 08:00 Dextrose (D50w Syringe) 50 ml Q15M PRN IV Till BS 80 mg/dL or above x2; Start 09/21/16 at 08:00 Atorvastatin Calcium (Lipitor) 80 mg HS NGT Last administered on 10/01/16 20: 19; Admin Dose 80 MG; Start 09/22/16 at 21:00 Insulin Aspart (Novolog Insulin Pen) NOVOLOG *MILD* ALGORI... Q4 SC Last administered on 10/02/16 06:00; Admin Dose 2 UNIT; Start 09/25/16 at 13:00 Pantoprazole (Protonix Iv) 40 mg AM IV Last administered on 10/01/16 08:53; Admin Dose 40 MG; Start 09/26/16 at 09:00 Epoetin Raj (Epogen (Esrd)) 10,000 units TuThSa@17 SC Last administered on 17:32; Admin Dose 10,000 UNITS; Start 09/26/16 at 17:00 IV Flush (NS 10 ml) 10 ml PRN PRN IV IV PROTOCOL; Start 09/26/16 at 17:30 Aspirin (Aspirin) 81 mg DAILY NGT Last administered on 10/01/16 08:53; Admin Dose 81 MG; Start 09/27/16 at 09:00 Clopidogrel Bisulfate 75 mg 75 mg DAILY NGT Last administered on 10/01/16 08: 54; Admin Dose 75 MG; Start 09/27/16 at 09:00 Piperacillin Sod/ Tazobactam Sod (Zosyn 2.25gm/ 50ml (Pmx)) 50 ml @ 100 mls/hr Q8 IVPB Last administered on 10/02/16 06:01; Admin Dose 100 MLS/HR; Start at 14:00 Morphine Sulfate (morphine) 2 mg Q4H PRN IV PAIN Last administered on 16:50; Admin Dose 2 MG; Start 09/28/16 at 16:00 Metoprolol Tartrate 25 mg 25 mg BID GTB Last administered on 10/01/16 20:19; Admin Dose 25 MG; Start 09/28/16 at 21:00 Norepinephrine 16 mg/Dextrose 500 ml @ 1.87 mls/hr TITRATE IV ; Start 09/29/16 at 20:00 Bumetanide 25 mg/ Dextrose 250 ml @ 10 mls/hr Q24H IV Last administered on 12:08; Admin Dose 10 MLS/HR; Start 10/01/16 at 10:00 Dextrose/Sodium Chloride (D5-1/2ns) 1,000 ml @ 50 mls/hr Q20H IV Last administered on 10/02/16 06:07; Admin Dose 50 MLS/HR; Start 10/01/16 at 09:30 Insulin Glargine (Lantus) 40 unit DAILY@08 SC ; Start 10/02/16 at 08:00 Magnesium Hydroxide (Milk Of Mag) 30 ml DAILY PRN PO CONSTIPATION; Start at 17:00 Sodium Biphosphate/ Sodium Phosphate (Fleet Enema) 133 ml DAILY PRN [place] CONSTIPATION; Start 10/01/16 at 17:00 DAMIR MARTINEZ MD Oct 02, 2016 08:05
[2016-10-02] MEDS: METOPROLOL 25 MG TAB GTB SCH ×2 (09:00→20:16)
[2016-10-02] MEDS: ASPIRIN 81 MG TAB NGT SCH ×2 (09:00→11:22)
[2016-10-02] MEDS: CLOPIDOGREL 75 MG TAB NGT SCH ×2 (09:00→11:22)
--- NOTE | 2016-10-02 09:20 | RADRPT ---
PROCEDURE: XR Chest. CLINICAL INDICATION: Shortness of breath. TECHNIQUE: Single frontal view. COMPARISON: 10/01/2016. FINDINGS: There is mild atelectasis at the lung bases, unchanged. The lungs are otherwise clear appear The heart is mildly enlarged. The left arm PICC line is in satisfactory position. There is no pleural effusion. There is no pneumothorax. IMPRESSION: 1. Mild atelectasis at the lung bases. 2. Mild cardiomegaly. 3. Left arm PICC line in satisfactory position. RPTAT: QQ .Arnaldo Back MD, Date Time Electronically viewed and signed by .Arnaldo Back MD, on 10/02/2016 09:20 .R/
[2016-10-02] MEDS: ARTIFICIAL TEARS 15 ML OPH BOTH EYES SCH ×4 (09:30→20:16)
[2016-10-02] MEDS: PANTOPRAZOLE 40 MG INJ IV SCH (09:30)
[2016-10-02] MEDS: INSULIN GLARGINE [LANtus] 3 ML PEN SC SCH (09:33)
--- NOTE | 2016-10-02 09:49 | CONS ---
Date/Time of Note Date/Time of Note DATE: 10/02/16 TIME: 09:47 Assessment/Plan Assessment/Plan Additional Assessment/Plan Chest x-ray was reviewed from today which is essentially clear. Assessment recommendations; 1. Patient admitted for acute WA and acute renal failure. 2. Status post respiratory failure. 3. History of diabetes and hypertension. 4. Patient requiring dialysis. Continue current treatment. Patient was transferred to the telemetry unit. Consultation Date/Type/Reason Admit Date/Time Sep 20, 2016 at 19:21 Initial Consult Date 09/23/16 Type of Consultation: Pulmonary/critical care Referring Provider: ZANDRA ROBISON MD, [facility] 24 HR Interval Summary Free Text/Dictation Patient condition stable. Was successfully extubated. Remains awake and alert. Denies any shortness of breath. General exam; elderly lady, currently in no distress awake and alert. Exam/Review of Systems Vital Signs Vitals Vital Signs Date Time Temp Pulse Resp B/P Pulse Ox O2 Delivery O2 Flow Rate FiO2 10/02/16 08:00 97.6 77 19 155/70 95 Room Air 10/02/16 04:00 3.0 10/02/16 01:52 27 Intake and Output 10/01/16 10/01/16 10/02/16 15:00 23:00 07:00 Intake Total 405 ml 470 ml 390 ml Output Total 135 ml 200 ml 450 ml Balance 270 ml 270 ml -60 ml Exam HEENT examination; supple neck, positive JVD. No lymphadenopathy. Midline trachea. No thyromegaly. No neck masses. Pupils are midsize and reactive to light. Chest examination; diminished but clear breath sounds bilaterally. S1-S2 audible, no murmurs. Regular rhythm. Abdomen examination; soft, no organomegaly. Bowel sounds audible. Nontender. Extremity exam is; 1+ anasarca. Multiple ecchymoses are present in all 4 extremities. BIN [employer]ER examination; patient is awake alert follows commands and moves all 4 extremities but has generalized weakness. Results Result Diagram: 10/02/16 0540 10/02/16 0540 Results 24 hrs Laboratory Tests Test 10/01/16 12:50 10/01/16 20:18 10/02/16 01:17 10/02/16 05:40 Bedside Glucose 205 188 210 White Blood Count 23.0 H Red Blood Count 3.37 L Hemoglobin 9.1 L Hematocrit 29.8 L Mean Corpuscular Volume 88.4 Mean Corpuscular Hemoglobin 27.0 L Mean Corpuscular Hemoglobin Concent 30.5 L Red Cell Distribution Width 18.6 H Platelet Count 103 #L Mean Platelet Volume 12.5 H Neutrophils % 82.3 H Lymphocytes % 7.6 L Monocytes % 8.2 Eosinophils % 0.8 Basophils % 0.1 Nucleated Red Blood Cells % 2.0 H Neutrophils # 18.9 H Lymphocytes # 1.8 Monocytes # 1.9 H Eosinophils # 0.2 Basophils # 0.0 Nucleated Red Blood Cells # 0.5 H Sodium Level 140 Potassium Level 3.9 Chloride Level 102 Carbon Dioxide Level 27 Anion Gap 15 Blood Urea Nitrogen 77 H Creatinine 4.78 H Glucose Level 228 H Calcium Level 8.2 L Phosphorus Level 8.7 #H Magnesium Level 2.3 Total Bilirubin 0.5 Direct Bilirubin 0.10 Indirect Bilirubin 0.4 Aspartate Amino Transf (AST/SGOT) 224 H Alanine Aminotransferase (ALT/SGPT) 464 H Alkaline Phosphatase 301 H Total Protein 5.1 L Albumin 2.3 L Globulin 2.80 Albumin/Globulin Ratio 0.82 Test 10/02/16 05:58 10/02/16 09:26 Bedside Glucose 211 245 H Medications Medications Current Medications Ticagrelor (Brilinta) 90 mg BID PO Last administered on 09/24/16 21:16; Admin Dose 90 MG; Start 09/21/16 at 09:00; Status Future Hold Miscellaneous Information 1 ea NOTE XX ; Start 09/20/16 at 22:00 Glucose (Glutose) 15 gm Q15M PRN PO DECREASED GLUCOSE; Start 09/20/16 at 22:00 Glucose (Glutose) 22.5 gm Q15M PRN PO DECREASED GLUCOSE; Start 09/20/16 at 22: 00 Glucagon (Glucagen) 1 mg Q15M PRN IM DECREASED GLUCOSE; Start 09/20/16 at 22:00 Glucose (Glutose) 15 gm Q15M PRN BUCCAL DECREASED GLUCOSE; Start 09/20/16 at 22 :00 Acetaminophen (Tylenol Liquid) 650 mg Q4H PRN NGT PAIN AND OR ELEVATED TEMP Last administered on 09/27/16 05:14; Admin Dose 650 MG; Start 09/21/16 at 02:00 Eye Lubricant (Artificial Tears Oph) 2 drop QID BOTH EYES Last administered on 10/02/16 09:30; Admin Dose 2 DROP; Start 09/21/16 at 09:00 Dextrose (D50w Syringe) 25 ml Q15M PRN IV Till BS 80 mg/dL or above x2; Start 09/21/16 at 08:00 Dextrose (D50w Syringe) 50 ml Q15M PRN IV Till BS 80 mg/dL or above x2; Start 09/21/16 at 08:00 Atorvastatin Calcium (Lipitor) 80 mg HS NGT Last administered on 10/01/16 20: 19; Admin Dose 80 MG; Start 09/22/16 at 21:00 Insulin Aspart (Novolog Insulin Pen) NOVOLOG *MILD* ALGORI... Q4 SC Last administered on 10/02/16 09:32; Admin Dose 3 UNIT; Start 09/25/16 at 13:00 Pantoprazole (Protonix Iv) 40 mg AM IV Last administered on 10/02/16 09:30; Admin Dose 40 MG; Start 09/26/16 at 09:00 Epoetin Raj (Epogen (Esrd)) 10,000 units TuThSa@17 SC Last administered on 17:32; Admin Dose 10,000 UNITS; Start 09/26/16 at 17:00 IV Flush (NS 10 ml) 10 ml PRN PRN IV IV PROTOCOL; Start 09/26/16 at 17:30 Aspirin (Aspirin) 81 mg DAILY NGT Last administered on 10/01/16 08:53; Admin Dose 81 MG; Start 09/27/16 at 09:00 Clopidogrel Bisulfate 75 mg 75 mg DAILY NGT Last administered on 10/01/16 08: 54; Admin Dose 75 MG; Start 09/27/16 at 09:00 Piperacillin Sod/ Tazobactam Sod (Zosyn 2.25gm/ 50ml (Pmx)) 50 ml @ 100 mls/hr Q8 IVPB Last administered on 10/02/16 06:01; Admin Dose 100 MLS/HR; Start at 14:00 Morphine Sulfate (morphine) 2 mg Q4H PRN IV PAIN Last administered on 16:50; Admin Dose 2 MG; Start 09/28/16 at 16:00 Metoprolol Tartrate 25 mg 25 mg BID GTB Last administered on 10/01/16 20:19; Admin Dose 25 MG; Start 09/28/16 at 21:00 Norepinephrine 16 mg/Dextrose 500 ml @ 1.87 mls/hr TITRATE IV ; Start 09/29/16 at 20:00 Bumetanide 25 mg/ Dextrose 250 ml @ 10 mls/hr Q24H IV Last administered on 12:08; Admin Dose 10 MLS/HR; Start 10/01/16 at 10:00 Dextrose/Sodium Chloride (D5-1/2ns) 1,000 ml @ 50 mls/hr Q20H IV Last administered on 10/02/16 06:07; Admin Dose 50 MLS/HR; Start 10/01/16 at 09:30 Insulin Glargine (Lantus) 40 unit DAILY@08 SC Last administered on 10/02/16 09 :33; Admin Dose 40 UNIT; Start 10/02/16 at 08:00 Magnesium Hydroxide (Milk Of Mag) 30 ml DAILY PRN PO CONSTIPATION; Start at 17:00 Sodium Biphosphate/ Sodium Phosphate (Fleet Enema) 133 ml DAILY PRN [place] CONSTIPATION; Start 10/01/16 at 17:00 ADIS CAMACHO Oct 02, 2016 09:49
[2016-10-02] MEDS: BUMETANIDE 25 MG in DEXTROSE 5% 150 ML IV SCH (11:21)
[2016-10-02] MEDS: SOD CHLORIDE 0.9% 1,000 ML IV SCH (13:40)
--- NOTE | 2016-10-02 14:39 | PN ---
Date/Time of Note Date/Time of Note DATE: 10/02/16 TIME: 14:30 Assessment/Plan VTE Prophylaxis VTE Prophylaxis Intervention: other (asa/ plavix) Lines/Catheters IV Catheter Type (from Nrsg): PICC Line Central line still needed: No Urinary Cath still in place: Yes Reason Cath still needed: other (indicate) (musc weak thus bed bound) Assessment/Plan Assessment/Plan 1. s/p stemi--s/p rca stent 2. worse dm 3. rob--still dec ur output/ with edema 4. anemia 5. dysphagia 2nd to muwc weak 6. s/p arf--extubated 7. high wbc ---per pulm ---per cards ---per renal ---change ivf to plain ns ---out to tele bed ok ---d/c bumex drip, start lasix ivp ---cont ivf, ice chips ---cont iv atbx, send blood/ throat mucus/ urine c&s Subjective 24 Hr Interval Summary Free Text/Dictation responds w/ head nods/ shakes Exam/Review of Systems Vital Signs Vitals Vital Signs Date Time Temp Pulse Resp B/P Pulse Ox O2 Delivery O2 Flow Rate FiO2 10/02/16 10:00 73 21 137/66 94 Room Air 10/02/16 08:00 97.6 10/02/16 04:00 3.0 10/02/16 01:52 27 Intake and Output 10/01/16 10/01/16 10/02/16 15:00 23:00 07:00 Intake Total 405 ml 470 ml 475 ml Output Total 135 ml 200 ml 450 ml Balance 270 ml 270 ml 25 ml Exam Constitutional: obese, other (min body motion) ENMT: other (min swallowing mucus) Respiratory: diminished breath sounds, other (wet coughs) Cardiovascular: diastolic murmur Extremities: edema Results Result Diagram: 10/02/16 0540 10/02/16 0540 Results 24 hrs Laboratory Tests Test 10/01/16 20:18 10/02/16 01:17 10/02/16 05:40 10/02/16 05:58 Bedside Glucose 188 210 211 White Blood Count 23.0 H Red Blood Count 3.37 L Hemoglobin 9.1 L Hematocrit 29.8 L Mean Corpuscular Volume 88.4 Mean Corpuscular Hemoglobin 27.0 L Mean Corpuscular Hemoglobin Concent 30.5 L Red Cell Distribution Width 18.6 H Platelet Count 103 #L Mean Platelet Volume 12.5 H Neutrophils % 82.3 H Lymphocytes % 7.6 L Monocytes % 8.2 Eosinophils % 0.8 Basophils % 0.1 Nucleated Red Blood Cells % 2.0 H Neutrophils # 18.9 H Lymphocytes # 1.8 Monocytes # 1.9 H Eosinophils # 0.2 Basophils # 0.0 Nucleated Red Blood Cells # 0.5 H Sodium Level 140 Potassium Level 3.9 Chloride Level 102 Carbon Dioxide Level 27 Anion Gap 15 Blood Urea Nitrogen 77 H Creatinine 4.78 H Glucose Level 228 H Calcium Level 8.2 L Phosphorus Level 8.7 #H Magnesium Level 2.3 Total Bilirubin 0.5 Direct Bilirubin 0.10 Indirect Bilirubin 0.4 Aspartate Amino Transf (AST/SGOT) 224 H Alanine Aminotransferase (ALT/SGPT) 464 H Alkaline Phosphatase 301 H Total Protein 5.1 L Albumin 2.3 L Globulin 2.80 Albumin/Globulin Ratio 0.82 Test 10/02/16 09:26 10/02/16 13:11 Bedside Glucose 245 H 249 H Medications Medications Current Medications Miscellaneous Information 1 ea NOTE XX ; Start 09/20/16 at 22:00 Glucose (Glutose) 15 gm Q15M PRN PO DECREASED GLUCOSE; Start 09/20/16 at 22:00 Glucose (Glutose) 22.5 gm Q15M PRN PO DECREASED GLUCOSE; Start 09/20/16 at 22: 00 Glucagon (Glucagen) 1 mg Q15M PRN IM DECREASED GLUCOSE; Start 09/20/16 at 22:00 Glucose (Glutose) 15 gm Q15M PRN BUCCAL DECREASED GLUCOSE; Start 09/20/16 at 22 :00 Acetaminophen (Tylenol Liquid) 650 mg Q4H PRN NGT PAIN AND OR ELEVATED TEMP Last administered on 09/27/16 05:14; Admin Dose 650 MG; Start 09/21/16 at 02:00 Eye Lubricant (Artificial Tears Oph) 2 drop QID BOTH EYES Last administered on 10/02/16 13:16; Admin Dose 2 DROP; Start 09/21/16 at 09:00 Dextrose (D50w Syringe) 25 ml Q15M PRN IV Till BS 80 mg/dL or above x2; Start 09/21/16 at 08:00 Dextrose (D50w Syringe) 50 ml Q15M PRN IV Till BS 80 mg/dL or above x2; Start 09/21/16 at 08:00 Atorvastatin Calcium (Lipitor) 80 mg HS NGT Last administered on 10/01/16 20: 19; Admin Dose 80 MG; Start 09/22/16 at 21:00 Insulin Aspart (Novolog Insulin Pen) NOVOLOG *MILD* ALGORI... Q4 SC Last administered on 10/02/16 13:15; Admin Dose 3 UNIT; Start 09/25/16 at 13:00 Pantoprazole (Protonix Iv) 40 mg AM IV Last administered on 10/02/16 09:30; Admin Dose 40 MG; Start 09/26/16 at 09:00 Epoetin Raj (Epogen (Esrd)) 10,000 units TuThSa@17 SC Last administered on 17:32; Admin Dose 10,000 UNITS; Start 09/26/16 at 17:00 IV Flush (NS 10 ml) 10 ml PRN PRN IV IV PROTOCOL; Start 09/26/16 at 17:30 Aspirin (Aspirin) 81 mg DAILY NGT Last administered on 10/02/16 11:22; Admin Dose 81 MG; Start 09/27/16 at 09:00 Clopidogrel Bisulfate 75 mg 75 mg DAILY NGT Last administered on 10/02/16 11: 22; Admin Dose 75 MG; Start 09/27/16 at 09:00 Piperacillin Sod/ Tazobactam Sod (Zosyn 2.25gm/ 50ml (Pmx)) 50 ml @ 100 mls/hr Q8 IVPB Last administered on 10/02/16 13:40; Admin Dose 100 MLS/HR; Start at 14:00 Morphine Sulfate (morphine) 2 mg Q4H PRN IV PAIN Last administered on 16:50; Admin Dose 2 MG; Start 09/28/16 at 16:00 Metoprolol Tartrate (Lopressor) 25 mg BID GTB Last administered on 10/01/16 20 :19; Admin Dose 25 MG; Start 09/28/16 at 21:00 Insulin Glargine (Lantus) 40 unit DAILY@08 SC Last administered on 10/02/16 09 :33; Admin Dose 40 UNIT; Start 10/02/16 at 08:00 Magnesium Hydroxide (Milk Of Mag) 30 ml DAILY PRN PO CONSTIPATION; Start at 17:00 Sodium Biphosphate/ Sodium Phosphate 133 ml 133 ml DAILY PRN [place] CONSTIPATION; Start 10/01/16 at 17:00 Sodium Chloride (NS) 1,000 ml @ 50 mls/hr Q20H IV Last administered on t 13:40; Admin Dose 50 MLS/HR; Start 10/02/16 at 13:30 SHAMA LOPEZ MD Oct 02, 2016 14:39
[2016-10-02] MEDS ORDERED: CALCIUM GLUCONATE 10% 2 GM in SOD CHLORIDE 0.9% 100 ML IVPB ONE (16:00)
[2016-10-02] MEDS: FUROSEMIDE 40 MG INJ IV SCH (17:38)
[2016-10-02 18:13] LABS: ADD UMIC YES; UR BILIRUBIN (Dip) NEGATIVE (NEGATIVE); UR BLOOD (Dip) 3+ (NEGATIVE); UR CLARITY CLOUDY (CLEAR); UR COLOR LT. YELLOW (YELLOW); UR KETONES (Dip) NEGATIVE (NEGATIVE); UR LEUKOCYTE ESTERASE (Dip) 3+ (NEGATIVE); UR NITRITE (Dip) NEGATIVE (NEGATIVE); UR TOTAL PROTEIN (Dip) 1+ (NEGATIVE); UR UROBILINOGEN (Dip) 0.2 E.U./dL (0.1-1.0)
[2016-10-02 18:51] LABS: UR SQUAMOUS EPITHELIAL CELL MODERATE
[2016-10-02] MEDS: ATORVASTATIN 80 MG TAB NGT SCH (20:16)
[2016-10-02 20:46] LABS: AADO2 Arterial 28.9 mmHg (7.0-24.0); Allen Test ACCEPTAB; Arterial Base Excess -2.4 mmol/L (-3.0-3); Arterial COHb 0.1 % (0.0-3.0); Arterial Fraction of Oxyhgb 93.2 % (93.0-99.0); Arterial HCO3 22.4 mmol/L (22.0-26.0); Arterial MetHb 0.4 % (0.0-1.5); Arterial Total Hemglobin 11.2 g/dl (12.0-18.0); MODE ROOM AIR
[2016-10-03] VITALS (40 sets, daily range): BP systolic 96–178; BP diastolic 44–92; PULSE 58–113; RESP 16–29
[2016-10-03] MEDS: INSULIN ASPART [NOVOLOG] 3 ML PEN SC SCH ×6 (01:14→20:30)
[2016-10-03 05:30] LABS: ADD SCAN DIFF NO
[2016-10-03] MEDS: FUROSEMIDE 40 MG INJ IV SCH (05:40)
[2016-10-03] MEDS: PIPER-TAZO 2.25 GM (PMX) 50 ML IVPB SCH ×3 (05:40→20:30)
[2016-10-03 05:52] LABS: ABNORMAL IP MESSAGE 1; BASOPHILS % 0.1 % (0.0-2.0); EOSINOPHILS # 0.2 10^3/ul (0.0-0.5); EOSINOPHILS % 0.8 % (0.0-7.0); HEMATOCRIT 29.8 % (37.0-47.0); HEMOGLOBIN 9.3 g/dl (12.0-16.0); LYMPHOCYTES # 1.5 10^3/ul (0.8-2.9); LYMPHOCYTES % 6.3 % (15.0-51.0); MEAN CORPUSCULAR HEMOGLOBIN 27.8 pg (29.0-33.0); MEAN CORPUSCULAR HGB CONC 31.2 g/dl (32.0-37.0); MEAN PLATELET VOLUME 11.5 fl (7.4-10.4); MONOCYTE # 1.7 10^3/ul (0.3-0.9); MONOCYTES % 7.5 % (0.0-11.0); NEUTROPHIL # 19.6 10^3/ul (1.6-7.5); NEUTROPHILS % 84.6 % (39.0-77.0); NUCLEATED RED BLOOD CELLS # 0.5 10^3/ul (0.0-0.0); NUCLEATED RED BLOOD CELLS% 2.1 /100WBC (0.0-0.0); PLATELET COUNT 129 10^3/UL (140-415); RED BLOOD COUNT 3.35 10^6/ul (4.20-5.40); WHITE BLOOD COUNT 23.2 10^3/ul (4.8-10.8)
[2016-10-03 06:00] LABS: ALBUMIN 2.1 g/dl (3.3-4.9)
[2016-10-03 06:01] LABS: POTASSIUM 3.7 mmol/L (3.5-5.1)
[2016-10-03 06:03] LABS: ALBUMIN/GLOBULIN RATIO 0.75; BILIRUBIN,DIRECT 0.1 mg/dl (0.00-0.20); BILIRUBIN,INDIRECT 0.4 mg/dl (0-1.1); BILIRUBIN,TOTAL 0.5 mg/dl (0.2-1.3); TOTAL PROTEIN 4.9 g/dl (6.1-8.1)
[2016-10-03 06:04] LABS: CALCIUM 8.1 mg/dl (8.4-10.2); PHOSPHORUS 8.5 mg/dl (2.5-4.9)
[2016-10-03 06:05] LABS: MAGNESIUM 2.2 mg/dl (1.7-2.5)
[2016-10-03 06:11] LABS: CREATININE 4.98 mg/dl (0.44-1.00)
[2016-10-03] MEDS ORDERED: ATROPINE 1 MG/10 ML SYRINGE ONE (07:00)
[2016-10-03] MEDS ORDERED: ETOMIDATE 20 MG INJ ONE (07:00)
[2016-10-03] MEDS ORDERED: ROCURONIUM 50 MG INJ ONE (07:00)
[2016-10-03] MEDS ORDERED: AMIODARONE 150 MG INJ ONE (07:00)
[2016-10-03] MEDS ORDERED: EPINEPHrine 0.1 MG/ML SYG ONE (07:00)
--- NOTE | 2016-10-03 07:11 | PN ---
DATE: 10/02/2016 SUBJECTIVE: This is a palliative care progress note. Had a brief conversation with her [place]. She remains in the intensive care unit having some difficulty with controlling her secretions. He is very positive in his outlook that she will continue to do well. We will continue to support him. She is improving, although slowly. Dictated By: DYLAN GIBBONS MD, LP/JERROD Conf#: [id number] DID#: [id number]
--- NOTE | 2016-10-03 08:46 | CONS ---
Date/Time of Note Date/Time of Note DATE: 10/03/16 TIME: 08:37 Assessment/Plan Assessment/Plan Chief Complaint/Hosp Course 1. Acute Renal Failure due to ATN , nonoliguric . She has had 2 hemodialysis treatments , Her renal function is decreasing . I am going to order hemodialysis for today . 2. ALOC , she is now extubated and she is now more responsive and following commands. . 3. liver enzyme elevation due to anoxia , enzymes are decreasing . 4. hypotension has resolved 5. hypocalcemia/hypoalbuminemia , her calcium level has increased. 6. GI bleeding , will transfuse blood , bleeding seems to have stopped 7. peripheral vascular disease , with one blue L toe . 8. will order speech therapy evaluation . Problems: Consultation Date/Type/Reason Admit Date/Time Sep 20, 2016 at 19:21 Initial Consult Date 09/23/16 Type of Consultation: Pulmonary/critical care Referring Provider: ZANDRA ROBISON MD, [facility] 24 HR Interval Summary Free Text/Dictation Patient is in the ICU . She is lethargic . She does rouse to verbal stimuli . she is confused . Constitutional: no complaints Exam/Review of Systems Vital Signs Vitals Vital Signs Date Time Temp Pulse Resp B/P Pulse Ox O2 Delivery O2 Flow Rate FiO2 10/03/16 04:11 100 1.0 10/03/16 04:00 71 19 129/57 Room Air 10/03/16 00:00 97.4 10/02/16 01:52 27 Intake and Output 10/02/16 10/02/16 10/03/16 14:59 22:59 06:59 Intake Total 485 ml 499.5 ml 350 ml Output Total 405 ml 370 ml 165 ml Balance 80 ml 129.5 ml 185 ml Exam Constitutional: alert Psych: confusion Respiratory: clear to auscultation, diminished breath sounds Cardiovascular: regular rate and rhythm Gastrointestinal: soft Extremities: edema Results Result Diagram: 10/03/16 0400 10/03/16 0400 Results 24 hrs Laboratory Tests Test 10/02/16 09:26 10/02/16 13:11 10/02/16 16:44 10/02/16 17:44 Bedside Glucose 245 H 249 H 227 H Urine Color LT. YELLOW Urine Clarity CLOUDY Urine pH 5.0 Urine Specific [employer] 1.015 Urine Ketones NEGATIVE Urine Nitrite NEGATIVE Urine Bilirubin NEGATIVE Urine Urobilinogen 0.2 E.U./dL Urine Leukocyte Esterase 3+ H Urine Microscopic RBC 2-5 Urine Microscopic WBC 10-25 Urine Squamous Epithelial Cells MODERATE Urine Yeast MANY Urine Hemoglobin 3+ H Urine Glucose 0.25% H Urine Total Protein 1+ H Test 10/02/16 20:09 10/02/16 20:49 10/03/16 01:11 10/03/16 04:00 Blood Gas Specimen Source Blood arterial Arterial Blood Date Drawn 10/02/2016 8:30:53 PM Arterial Blood pH (Temp corrected) 7.378 Arterial Blood pCO2 (Temp correct) 39.0 Arterial Blood pO2 (Temp corrected) 74.1 L Arterial Blood HCO3 22.4 Arterial Blood Base Excess -2.4 Arterial Blood Oxygen Saturation 93.7 L Raz Test ACCEPTAB Arterial Blood Gas Puncture Site Right Radial Arterial Blood Carboxyhemoglobin 0.1 Arterial Blood Methemoglobin 0.4 Blood Gas A-a O2 Differential 28.9 H Oxyhemoglobin Percent 93.2 Total Hemoglobin 11.2 L Blood Gas Temperature 37.0 Blood Gas Modality ROOM AIR FiO2 21.0 Blood Gas Notified Whom [place] Blood Gas Notified Time 10/02/2016 8:46:30 PM Bedside Glucose 165 170 White Blood Count 23.2 H Red Blood Count 3.35 L Hemoglobin 9.3 L Hematocrit 29.8 L Mean Corpuscular Volume 89.0 Mean Corpuscular Hemoglobin 27.8 L Mean Corpuscular Hemoglobin Concent 31.2 L Red Cell Distribution Width 19.0 H Platelet Count 129 #L Mean Platelet Volume 11.5 H Neutrophils % 84.6 H Lymphocytes % 6.3 L Monocytes % 7.5 Eosinophils % 0.8 Basophils % 0.1 Nucleated Red Blood Cells % 2.1 H Neutrophils # 19.6 H Lymphocytes # 1.5 Monocytes # 1.7 H Eosinophils # 0.2 Basophils # 0.0 Nucleated Red Blood Cells # 0.5 H Sodium Level 142 Potassium Level 3.7 Chloride Level 104 Carbon Dioxide Level 25 Anion Gap 17 H Blood Urea Nitrogen 94 H Creatinine 4.98 H Glucose Level 140 # Calcium Level 8.1 L Phosphorus Level 8.5 H Magnesium Level 2.2 Total Bilirubin 0.5 Direct Bilirubin 0.10 Indirect Bilirubin 0.4 Aspartate Amino Transf (AST/SGOT) 191 H Alanine Aminotransferase (ALT/SGPT) 408 H Alkaline Phosphatase 279 H Total Protein 4.9 L Albumin 2.1 L Globulin 2.80 Albumin/Globulin Ratio 0.75 Test 10/03/16 05:15 Bedside Glucose 171 Medications Medications Current Medications Miscellaneous Information 1 ea NOTE XX ; Start 09/20/16 at 22:00 Glucose (Glutose) 15 gm Q15M PRN PO DECREASED GLUCOSE; Start 09/20/16 at 22:00 Glucose (Glutose) 22.5 gm Q15M PRN PO DECREASED GLUCOSE; Start 09/20/16 at 22: 00 Glucagon (Glucagen) 1 mg Q15M PRN IM DECREASED GLUCOSE; Start 09/20/16 at 22:00 Glucose (Glutose) 15 gm Q15M PRN BUCCAL DECREASED GLUCOSE; Start 09/20/16 at 22 :00 Acetaminophen (Tylenol Liquid) 650 mg Q4H PRN NGT PAIN AND OR ELEVATED TEMP Last administered on 09/27/16 05:14; Admin Dose 650 MG; Start 09/21/16 at 02:00 Eye Lubricant (Artificial Tears Oph) 2 drop QID BOTH EYES Last administered on 10/02/16 20:16; Admin Dose 2 DROP; Start 09/21/16 at 09:00 Dextrose (D50w Syringe) 25 ml Q15M PRN IV Till BS 80 mg/dL or above x2; Start 09/21/16 at 08:00 Dextrose (D50w Syringe) 50 ml Q15M PRN IV Till BS 80 mg/dL or above x2; Start 09/21/16 at 08:00 Atorvastatin Calcium (Lipitor) 80 mg HS NGT Last administered on 10/02/16 20: 16; Admin Dose 80 MG; Start 09/22/16 at 21:00 Insulin Aspart (Novolog Insulin Pen) NOVOLOG *MILD* ALGORI... Q4 SC Last administered on 10/03/16 05:38; Admin Dose 1 UNIT; Start 09/25/16 at 13:00 Pantoprazole (Protonix Iv) 40 mg AM IV Last administered on 10/02/16 09:30; Admin Dose 40 MG; Start 09/26/16 at 09:00 Epoetin Raj (Epogen (Esrd)) 10,000 units TuThSa@17 SC Last administered on 17:32; Admin Dose 10,000 UNITS; Start 09/26/16 at 17:00 IV Flush (NS 10 ml) 10 ml PRN PRN IV IV PROTOCOL; Start 09/26/16 at 17:30 Aspirin (Aspirin) 81 mg DAILY NGT Last administered on 10/02/16 11:22; Admin Dose 81 MG; Start 09/27/16 at 09:00 Clopidogrel Bisulfate 75 mg 75 mg DAILY NGT Last administered on 10/02/16 11: 22; Admin Dose 75 MG; Start 09/27/16 at 09:00 Piperacillin Sod/ Tazobactam Sod (Zosyn 2.25gm/ 50ml (Pmx)) 50 ml @ 100 mls/hr Q8 IVPB Last administered on 10/03/16 05:40; Admin Dose 100 MLS/HR; Start at 14:00 Morphine Sulfate (morphine) 2 mg Q4H PRN IV PAIN Last administered on 16:50; Admin Dose 2 MG; Start 09/28/16 at 16:00 Metoprolol Tartrate (Lopressor) 25 mg BID GTB Last administered on 10/02/16 20 :16; Admin Dose 25 MG; Start 09/28/16 at 21:00 Insulin Glargine (Lantus) 40 unit DAILY@08 SC Last administered on 10/02/16 09 :33; Admin Dose 40 UNIT; Start 10/02/16 at 08:00 Sodium Biphosphate/ Sodium Phosphate 133 ml 133 ml DAILY PRN [place] CONSTIPATION; Start 10/01/16 at 17:00 Sodium Chloride (NS) 1,000 ml @ 50 mls/hr Q20H IV Last administered on 13:40; Admin Dose 50 MLS/HR; Start 10/02/16 at 13:30 DAMIR MARTINEZ MD Oct 03, 2016 08:46
[2016-10-03] MEDS ORDERED: ALBUMIN HUMAN 25% 100 ML IV PRN (09:00)
[2016-10-03] MEDS: CLOPIDOGREL 75 MG TAB NGT SCH (09:01)
[2016-10-03] MEDS: PANTOPRAZOLE 40 MG INJ IV SCH (09:01)
[2016-10-03] MEDS: METOPROLOL 25 MG TAB GTB SCH ×2 (09:02→20:30)
[2016-10-03] MEDS: ARTIFICIAL TEARS 15 ML OPH BOTH EYES SCH ×4 (09:02→20:29)
[2016-10-03] MEDS: ASPIRIN 81 MG TAB NGT SCH (09:02)
[2016-10-03] MEDS: INSULIN GLARGINE [LANtus] 3 ML PEN SC SCH (09:03)
[2016-10-03] MEDS: SOD CHLORIDE 0.9% 1,000 ML IV SCH ×2 (09:30→15:09)
--- NOTE | 2016-10-03 09:31 | CONS ---
Date/Time of Note Date/Time of Note DATE: 10/03/16 TIME: 09:30 Consult Date/Type/Reason Admit Date/Time Sep 20, 2016 at 19:21 Initial Consult Date 09/23/16 Type of Consultation: Pulmonary/critical care Ordering Provider: ZANDRA ROBISON MD, [facility] Subjective Patient is awake alert and oriented still has significant neuromuscular weakness No hemodynamic compromise We'll schedule for hemodialysis today Objective Vital Signs Date Time Temp Pulse Resp B/P Pulse Ox O2 Delivery O2 Flow Rate FiO2 10/03/16 08:00 70 10/03/16 04:11 100 1.0 10/03/16 04:00 19 129/57 Room Air 10/03/16 00:00 97.4 10/02/16 01:52 27 Intake and Output 10/02/16 10/02/16 10/03/16 15:00 23:00 07:00 Intake Total 467 ml 482.5 ml 300 ml Output Total 405 ml 390 ml 145 ml Balance 62 ml 92.5 ml 155 ml Results/Medications Result Diagram: 10/03/16 0400 10/03/16 0400 Results 24 hrs Laboratory Tests Test 10/02/16 13:11 10/02/16 16:44 10/02/16 17:44 10/02/16 20:09 Bedside Glucose 249 H 227 H Urine Color LT. YELLOW Urine Clarity CLOUDY Urine pH 5.0 Urine Specific [place] 1.015 Urine Ketones NEGATIVE Urine Nitrite NEGATIVE Urine Bilirubin NEGATIVE Urine Urobilinogen 0.2 E.U./dL Urine Leukocyte Esterase 3+ H Urine Microscopic RBC 2-5 Urine Microscopic WBC 10-25 Urine Squamous Epithelial Cells MODERATE Urine Yeast MANY Urine Hemoglobin 3+ H Urine Glucose 0.25% H Urine Total Protein 1+ H Blood Gas Specimen Source Blood arterial Arterial Blood Date Drawn 10/02/2016 8:30:53 PM Arterial Blood pH (Temp corrected) 7.378 Arterial Blood pCO2 (Temp correct) 39.0 Arterial Blood pO2 (Temp corrected) 74.1 L Arterial Blood HCO3 22.4 Arterial Blood Base Excess -2.4 Arterial Blood Oxygen Saturation 93.7 L Raz Test ACCEPTAB Arterial Blood Gas Puncture Site Right Radial Arterial Blood Carboxyhemoglobin 0.1 Arterial Blood Methemoglobin 0.4 Blood Gas A-a O2 Differential 28.9 H Oxyhemoglobin Percent 93.2 Total Hemoglobin 11.2 L Blood Gas Temperature 37.0 Blood Gas Modality ROOM AIR FiO2 21.0 Blood Gas Notified Whom MA Blood Gas Notified Time 10/02/2016 8:46:30 PM Test 10/02/16 20:49 10/03/16 01:11 10/03/16 04:00 10/03/16 05:15 Bedside Glucose 165 170 171 White Blood Count 23.2 H Red Blood Count 3.35 L Hemoglobin 9.3 L Hematocrit 29.8 L Mean Corpuscular Volume 89.0 Mean Corpuscular Hemoglobin 27.8 L Mean Corpuscular Hemoglobin Concent 31.2 L Red Cell Distribution Width 19.0 H Platelet Count 129 #L Mean Platelet Volume 11.5 H Neutrophils % 84.6 H Lymphocytes % 6.3 L Monocytes % 7.5 Eosinophils % 0.8 Basophils % 0.1 Nucleated Red Blood Cells % 2.1 H Neutrophils # 19.6 H Lymphocytes # 1.5 Monocytes # 1.7 H Eosinophils # 0.2 Basophils # 0.0 Nucleated Red Blood Cells # 0.5 H Sodium Level 142 Potassium Level 3.7 Chloride Level 104 Carbon Dioxide Level 25 Anion Gap 17 H Blood Urea Nitrogen 94 H Creatinine 4.98 H Glucose Level 140 # Calcium Level 8.1 L Phosphorus Level 8.5 H Magnesium Level 2.2 Total Bilirubin 0.5 Direct Bilirubin 0.10 Indirect Bilirubin 0.4 Aspartate Amino Transf (AST/SGOT) 191 H Alanine Aminotransferase (ALT/SGPT) 408 H Alkaline Phosphatase 279 H Total Protein 4.9 L Albumin 2.1 L Globulin 2.80 Albumin/Globulin Ratio 0.75 Test 10/03/16 08:54 Bedside Glucose 109 Medications Current Medications Miscellaneous Information 1 ea NOTE XX ; Start 09/20/16 at 22:00 Glucose (Glutose) 15 gm Q15M PRN PO DECREASED GLUCOSE; Start 09/20/16 at 22:00 Glucose (Glutose) 22.5 gm Q15M PRN PO DECREASED GLUCOSE; Start 09/20/16 at 22: 00 Glucagon (Glucagen) 1 mg Q15M PRN IM DECREASED GLUCOSE; Start 09/20/16 at 22:00 Glucose (Glutose) 15 gm Q15M PRN BUCCAL DECREASED GLUCOSE; Start 09/20/16 at 22 :00 Acetaminophen (Tylenol Liquid) 650 mg Q4H PRN NGT PAIN AND OR ELEVATED TEMP Last administered on 09/27/16 05:14; Admin Dose 650 MG; Start 09/21/16 at 02:00 Eye Lubricant (Artificial Tears Oph) 2 drop QID BOTH EYES Last administered on 10/03/16 09:02; Admin Dose 2 DROP; Start 09/21/16 at 09:00 Dextrose (D50w Syringe) 25 ml Q15M PRN IV Till BS 80 mg/dL or above x2; Start 09/21/16 at 08:00 Dextrose (D50w Syringe) 50 ml Q15M PRN IV Till BS 80 mg/dL or above x2; Start 09/21/16 at 08:00 Atorvastatin Calcium (Lipitor) 80 mg HS NGT Last administered on 10/02/16 20: 16; Admin Dose 80 MG; Start 09/22/16 at 21:00 Insulin Aspart (Novolog Insulin Pen) NOVOLOG *MILD* ALGORI... Q4 SC Last administered on 10/03/16 05:38; Admin Dose 1 UNIT; Start 09/25/16 at 13:00 Pantoprazole (Protonix Iv) 40 mg AM IV Last administered on 10/03/16 09:01; Admin Dose 40 MG; Start 09/26/16 at 09:00 Epoetin Raj (Epogen (Esrd)) 10,000 units TuThSa@17 SC Last administered on 17:32; Admin Dose 10,000 UNITS; Start 09/26/16 at 17:00 IV Flush (NS 10 ml) 10 ml PRN PRN IV IV PROTOCOL; Start 09/26/16 at 17:30 Aspirin (Aspirin) 81 mg DAILY NGT Last administered on 10/03/16 09:02; Admin Dose 81 MG; Start 09/27/16 at 09:00 Clopidogrel Bisulfate 75 mg 75 mg DAILY NGT Last administered on 10/03/16 09: 01; Admin Dose 75 MG; Start 09/27/16 at 09:00 Piperacillin Sod/ Tazobactam Sod (Zosyn 2.25gm/ 50ml (Pmx)) 50 ml @ 100 mls/hr Q8 IVPB Last administered on 10/03/16 05:40; Admin Dose 100 MLS/HR; Start at 14:00 Morphine Sulfate (morphine) 2 mg Q4H PRN IV PAIN Last administered on 16:50; Admin Dose 2 MG; Start 09/28/16 at 16:00 Metoprolol Tartrate (Lopressor) 25 mg BID GTB Last administered on 10/03/16 09 :02; Admin Dose 25 MG; Start 09/28/16 at 21:00 Insulin Glargine (Lantus) 40 unit DAILY@08 SC Last administered on 10/03/16 09 :03; Admin Dose 40 UNIT; Start 10/02/16 at 08:00 Sodium Biphosphate/ Sodium Phosphate 133 ml 133 ml DAILY PRN HI CONSTIPATION; Start 10/01/16 at 17:00 Sodium Chloride 1,000 ml @ 50 mls/hr Q20H IV Last administered on 10/02/16 13 :40; Admin Dose 50 MLS/HR; Start 10/02/16 at 13:30 Albumin Human (Albumin Human 25%) 100 ml @ 100 mls/hr PRN PRN IV BP SUPPORT ( DIALYSIS); Start 10/03/16 at 09:00; Stop 10/03/16 at 23:00 Assessment/Plan Chief Complaint/Hosp Course IMPRESSION 1. Status post Cardiac arrest. ST elevation TX stent placement to RCA 2. Significant neurological recovery from initial encephalopathy 3. Acute renal failure, probably acute tubular necrosis injury. Now on hemodialysis 4. Status post Shock liver. 5. Status post hypoxemic respiratory failure now extubated Plan 1. Continue aspiration precautions nasal cannula 2. Continue renal recommendations. Hemodialysis as tolerated 3. Vasopressors if needed 4. Broad-spectrum antibiotic coverage. 5. Glycemic management. 6. Speech therapy evaluation 7. Physical therapy evaluation Disposition Continue ICU supportive care Problems: [facility]DR[facility] ROBISON MD, [facility] Oct 03, 2016 09:31
[2016-10-03 11:13] LABS: AADO2 Arterial 381.5 mmHg (7.0-24.0); Allen Test ACCEPTAB; Arterial COHb 0.1 % (0.0-3.0); Arterial Fraction of Oxyhgb 89.4 % (93.0-99.0); Arterial HCO3 22.7 mmol/L (22.0-26.0); Arterial MetHb 0.3 % (0.0-1.5); Arterial Total Hemglobin 10.9 g/dl (12.0-18.0); MODE MASK - SIMPLE
--- NOTE | 2016-10-03 14:01 | PN ---
DATE: 10/03/2016 Ms. Danielle was put on BiPAP today and she had 1 tosha vasovagal episode. She is still awake, jennie d, follows simple commands. VITAL SIGNS: Blood pressure 107/53, pulse 70 and regular, respirations 17, temperature of 97.4 degr ees, 98% saturation on 45% BiPAP. LABORATORY TESTS: White blood cell count of 23.2 thousand, hemoglobin 9.3, hematocrit 29.8, MCV of 89.0, platelet count of 129,000. Chemistry: Serum sodium 142, potassium 3.7, chloride 104, bicarb jefry 25, BUN of 94, creatinine 4.98. AST 191, ALT 408, alkaline phosphatase 279. ASSESSMENT AND PLAN: She appears to be fatigued, but she still is awake, oriented. There are stable hemodynamics now. I reviewed Dr. Newberry's notes today. The treatment plan is the same. Will cont inue to support the family and patient. Close followup. Dictated By: DYLAN GIBBONS MD, LP/JERROD Conf#: [id number] DID#: [id number]
[2016-10-03] MEDS ORDERED: CALCIUM GLUCONATE 10% 2 GM in SOD CHLORIDE 0.9% 100 ML IVPB ONE (17:30)
[2016-10-03] MEDS ORDERED: FLUCONAZOLE 150 MG TAB PO ONE (17:30)
[2016-10-03] MEDS ORDERED: FUROSEMIDE 100 MG INJ IV SCH (17:30)
--- NOTE | 2016-10-03 17:38 | PN ---
Date/Time of Note Date/Time of Note DATE: 10/03/16 TIME: 17:16 Assessment/Plan VTE Prophylaxis VTE Prophylaxis Intervention: other (asa & plavix) Lines/Catheters IV Catheter Type (from Nrsg): quintocath Central line still needed: No Urinary Cath still in place: Yes Reason Cath still needed: other (indicate) (icu bed bound) Assessment/Plan Assessment/Plan 1. s/p vasovagal episode 2. stemi--s/p rca stent 3. high wbc 4. rob w/ anemia & edema 5. low calc 6. dm 7. low alb 8. uti w/ jhon ---per cards ---per pulm ---per renal ---ID ref ---calc supp ---inc lasix 80mg iv trial ---q4hrs resp rx while awake ---diflucan 150mg x1 Subjective 24 Hr Interval Summary Subjective hx not possible: other (weak, tired) Exam/Review of Systems Vital Signs Vitals Vital Signs Date Time Temp Pulse Resp B/P Pulse Ox O2 Delivery O2 Flow Rate FiO2 10/03/16 17:00 65 29 104/44 91 BIPAP 10/03/16 16:00 97.4 10/03/16 12:57 45 10/03/16 12:00 12.0 Intake and Output 10/02/16 10/02/16 10/03/16 15:00 23:00 07:00 Intake Total 467 ml 482.5 ml 425 ml Output Total 405 ml 390 ml 145 ml Balance 62 ml 92.5 ml 280 ml Exam Constitutional: distress, frail, obese Respiratory: congested cough, diminished breath sounds Cardiovascular: diastolic murmur Extremities: edema, other (some toes cold w/ pre-gang) Additional Comments had one episode of vasosagal, syncope+ Results Result Diagram: 10/03/16 0400 10/03/16 0400 Results 24 hrs Laboratory Tests Test 10/02/16 17:44 10/02/16 20:09 10/02/16 20:49 10/03/16 01:11 Urine Color LT. YELLOW Urine Clarity CLOUDY Urine pH 5.0 Urine Specific [place] 1.015 Urine Ketones NEGATIVE Urine Nitrite NEGATIVE Urine Bilirubin NEGATIVE Urine Urobilinogen 0.2 E.U./dL Urine Leukocyte Esterase 3+ H Urine Microscopic RBC 2-5 Urine Microscopic WBC 10-25 Urine Squamous Epithelial Cells MODERATE Urine Yeast MANY Urine Hemoglobin 3+ H Urine Glucose 0.25% H Urine Total Protein 1+ H Blood Gas Specimen Source Blood arterial Arterial Blood Date Drawn 10/02/2016 8:30:53 PM Arterial Blood pH (Temp corrected) 7.378 Arterial Blood pCO2 (Temp correct) 39.0 Arterial Blood pO2 (Temp corrected) 74.1 L Arterial Blood HCO3 22.4 Arterial Blood Base Excess -2.4 Arterial Blood Oxygen Saturation 93.7 L Raz Test ACCEPTAB Arterial Blood Gas Puncture Site Right Radial Arterial Blood Carboxyhemoglobin 0.1 Arterial Blood Methemoglobin 0.4 Blood Gas A-a O2 Differential 28.9 H Oxyhemoglobin Percent 93.2 Total Hemoglobin 11.2 L Blood Gas Temperature 37.0 Blood Gas Modality ROOM AIR FiO2 21.0 Blood Gas Notified Whom MA Blood Gas Notified Time 10/02/2016 8:46:30 PM Bedside Glucose 165 170 Test 10/03/16 04:00 10/03/16 05:15 10/03/16 08:54 10/03/16 11:00 White Blood Count 23.2 H Red Blood Count 3.35 L Hemoglobin 9.3 L Hematocrit 29.8 L Mean Corpuscular Volume 89.0 Mean Corpuscular Hemoglobin 27.8 L Mean Corpuscular Hemoglobin Concent 31.2 L Red Cell Distribution Width 19.0 H Platelet Count 129 #L Mean Platelet Volume 11.5 H Neutrophils % 84.6 H Lymphocytes % 6.3 L Monocytes % 7.5 Eosinophils % 0.8 Basophils % 0.1 Nucleated Red Blood Cells % 2.1 H Neutrophils # 19.6 H Lymphocytes # 1.5 Monocytes # 1.7 H Eosinophils # 0.2 Basophils # 0.0 Nucleated Red Blood Cells # 0.5 H Sodium Level 142 Potassium Level 3.7 Chloride Level 104 Carbon Dioxide Level 25 Anion Gap 17 H Blood Urea Nitrogen 94 H Creatinine 4.98 H Glucose Level 140 # Calcium Level 8.1 L Phosphorus Level 8.5 H Magnesium Level 2.2 Total Bilirubin 0.5 Direct Bilirubin 0.10 Indirect Bilirubin 0.4 Aspartate Amino Transf (AST/SGOT) 191 H Alanine Aminotransferase (ALT/SGPT) 408 H Alkaline Phosphatase 279 H Total Protein 4.9 L Albumin 2.1 L Globulin 2.80 Albumin/Globulin Ratio 0.75 Bedside Glucose 171 109 Blood Gas Specimen Source Blood arterial Arterial Blood Date Drawn 10/03/2016 11:05:07 AM Arterial Blood pH (Temp corrected) 7.337 L Arterial Blood pCO2 (Temp correct) 43.4 Arterial Blood pO2 (Temp corrected) 63.7 L Arterial Blood HCO3 22.7 Arterial Blood Base Excess -3.0 Arterial Blood Oxygen Saturation 89.8 L Raz Test ACCEPTAB Arterial Blood Gas Puncture Site Right Radial Arterial Blood Carboxyhemoglobin 0.1 Arterial Blood Methemoglobin 0.3 Blood Gas A-a O2 Differential 381.5 H Oxyhemoglobin Percent 89.4 L Total Hemoglobin 10.9 L Blood Gas Temperature 37.0 Blood Gas Modality MASK - SIMPLE FiO2 69.0 Blood Gas Notified Whom JLD Blood Gas Notified Time 10/03/2016 11:13:37 AM Test 10/03/16 13:08 Bedside Glucose 118 Medications Medications Current Medications Miscellaneous Information 1 ea NOTE XX ; Start 09/20/16 at 22:00 Glucose (Glutose) 15 gm Q15M PRN PO DECREASED GLUCOSE; Start 09/20/16 at 22:00 Glucose (Glutose) 22.5 gm Q15M PRN PO DECREASED GLUCOSE; Start 09/20/16 at 22: 00 Glucagon (Glucagen) 1 mg Q15M PRN IM DECREASED GLUCOSE; Start 09/20/16 at 22:00 Glucose (Glutose) 15 gm Q15M PRN BUCCAL DECREASED GLUCOSE; Start 09/20/16 at 22 :00 Acetaminophen (Tylenol Liquid) 650 mg Q4H PRN NGT PAIN AND OR ELEVATED TEMP Last administered on 09/27/16 05:14; Admin Dose 650 MG; Start 09/21/16 at 02:00 Eye Lubricant (Artificial Tears Oph) 2 drop QID BOTH EYES Last administered on 10/03/16 13:09; Admin Dose 2 DROP; Start 09/21/16 at 09:00 Dextrose (D50w Syringe) 25 ml Q15M PRN IV Till BS 80 mg/dL or above x2; Start 09/21/16 at 08:00 Dextrose (D50w Syringe) 50 ml Q15M PRN IV Till BS 80 mg/dL or above x2; Start 09/21/16 at 08:00 Atorvastatin Calcium (Lipitor) 80 mg HS NGT Last administered on 10/02/16 20: 16; Admin Dose 80 MG; Start 09/22/16 at 21:00 Insulin Aspart (Novolog Insulin Pen) NOVOLOG *MILD* ALGORI... Q4 SC Last administered on 10/03/16 05:38; Admin Dose 1 UNIT; Start 09/25/16 at 13:00 Pantoprazole (Protonix Iv) 40 mg AM IV Last administered on 10/03/16 09:01; Admin Dose 40 MG; Start 09/26/16 at 09:00 Epoetin Raj (Epogen (Esrd)) 10,000 units TuThSa@17 SC Last administered on 17:32; Admin Dose 10,000 UNITS; Start 09/26/16 at 17:00 IV Flush (NS 10 ml) 10 ml PRN PRN IV IV PROTOCOL; Start 09/26/16 at 17:30 Aspirin (Aspirin) 81 mg DAILY NGT Last administered on 10/03/16 09:02; Admin Dose 81 MG; Start 09/27/16 at 09:00 Clopidogrel Bisulfate 75 mg 75 mg DAILY NGT Last administered on 10/03/16 09: 01; Admin Dose 75 MG; Start 09/27/16 at 09:00 Piperacillin Sod/ Tazobactam Sod (Zosyn 2.25gm/ 50ml (Pmx)) 50 ml @ 100 mls/hr Q8 IVPB Last administered on 10/03/16 15:09; Admin Dose 100 MLS/HR; Start at 14:00 Morphine Sulfate (morphine) 2 mg Q4H PRN IV PAIN Last administered on 16:50; Admin Dose 2 MG; Start 09/28/16 at 16:00 Metoprolol Tartrate (Lopressor) 25 mg BID GTB Last administered on 10/03/16 09 :02; Admin Dose 25 MG; Start 09/28/16 at 21:00 Insulin Glargine (Lantus) 40 unit DAILY@08 SC Last administered on 10/03/16 09 :03; Admin Dose 40 UNIT; Start 10/02/16 at 08:00 Sodium Biphosphate/ Sodium Phosphate 133 ml 133 ml DAILY PRN [place] CONSTIPATION; Start 10/01/16 at 17:00 Sodium Chloride 1,000 ml @ 50 mls/hr Q20H IV Last administered on 3/30/17at 15 :09; Admin Dose 50 MLS/HR; Start 10/02/16 at 13:30 Albumin Human (Albumin Human 25%) 100 ml @ 100 mls/hr PRN PRN IV BP SUPPORT ( DIALYSIS); Start 10/03/16 at 09:00; Stop 10/03/16 at 23:00 Fluconazole 150 mg 150 mg ONCE ONCE PO ; Start 10/03/16 at 17:30; Stop at 17:31; Status UNV Calcium Gluconate/ Sodium Chloride (Ca Gluc/NS) 120 ml @ 60 mls/hr ONCE ONCE IVPB ; Start 10/03/16 at 17:30; Stop 10/03/16 at 19:29; Status UNV Furosemide (Lasix) 80 mg DAILY IV ; Start 10/04/16 at 09:00; Status UNV SHAMA LOPEZ MD Oct 03, 2016 17:27
[2016-10-03] MEDS: ATORVASTATIN 80 MG TAB NGT SCH (20:30)
[2016-10-03] MEDS: EPOETIN 10000 UNITS/1 ML INJ (ESRD) SC SCH (20:34)
[2016-10-03 21:41] LABS: AADO2 Arterial 491.9 mmHg (7.0-24.0); Allen Test ACCEPTAB; Arterial Base Excess -2.3 mmol/L (-3.0-3); Arterial COHb 0.3 % (0.0-3.0); Arterial Fraction of Oxyhgb 97.6 % (93.0-99.0); Arterial HCO3 25.1 mmol/L (22.0-26.0); Arterial MetHb 0.6 % (0.0-1.5); Arterial Total Hemglobin 10.4 g/dl (12.0-18.0); Blood Gas IEPAP 16/8; Blood Gas PS 8; MODE MASK - BIPAP
[2016-10-03] MEDS ORDERED: NORepinephrine 8MG/250 ML (PMX 250 ML ONE (22:27)
[2016-10-03] MEDS ORDERED: ETOMIDATE 20 MG INJ IV ONE (22:30)
[2016-10-03] MEDS ORDERED: ROCURONIUM 50 MG INJ IV ONE (22:30)
--- NOTE | 2016-10-03 23:13 | EN ---
Date/Time of Note Date/Time of Note DATE: 10/03/16 TIME: 23:09 ER Progress Note I was called to the ICU to intubate this patient. She was admitted originally for a STEMI and she is now status post PCI with stent placement. She has been on BiPAP today with worsening respiratory failure. She had acidemia on her ABG today with elevation in her CO2 in the 50s. Per the nursing staff, the patient has been becoming more and more difficult to arouse and looking like she is tiring out. The admitting physician wanted the patient to be intubated for worsening respiratory failure. Const: Ill-appearing, somnolent, difficult to arouse, edematous Head: Atraumatic ENT: no dentures Resp: [Clear to auscultation bilaterally, however poor respiratory effort Cardio: Regular rate and rhythm, no murmurs Abd: Soft, non tender, non distended. Normal bowel sounds Skin: Warm, dry Ext: Multiple ecchymoses on extremities with edema, right femoral dialysis cath Neur: Somnolent, difficult to arouse Psych: Normal Mood and Affect Endotracheal Intubation by me: Pre assessment performed. See preceding note for details. Pre-oxygenation performed with 100% oxygen with BiPAP RSI: Performed w/o complication or hypoxic events. Medications as ordered. Blade: Mac 4 ET Tube: 7.5 cm Depth: 23 cm at the lip Intubation confirmed by colorimetric CO2, equal breath sounds, quiet over the stomach. MAYRA HOLBROOK MD Oct 03, 2016 23:13
--- NOTE | 2016-10-03 23:19 | EN ---
Date/Time of Note Date/Time of Note DATE: 10/03/16 TIME: 23:14 ER Progress Note I was called to the ICU after I intubated the patient for respiratory failure. It seems like the patient had bradycardia and hypotension a few minutes after the intubation and lost her pulses. CPR was being performed when I arrived to the ICU. Cardiopulmonary Resuscitation by me: See code documentation for specific details. ACLS and BLS were performed with high quality chest compressions and minimal interruptions. Reversible causes were assessed and treated. Patient received 1 round of compressions and 1 dose of epinephrine with return of spontaneous circulation. Her subsequent rhythm was tachycardic in the 140s with a normal blood pressure. Const: Chronically ill-appearing, obtunded Head: Intubated Resp: Unable to assess, actively getting compressions Cardio: Pulseless, compressions in progress Abd: Nondistended Skin: Multiple ecchymoses, warm, dry Ext: Diffuse edema in all 4 extremities Neur: Obtunded EKG: Rate/Rhythm: Sinus tachycardia QRS, ST, T-waves: Nonspecific ST/T abnormalities in the lateral leads Impression: There is evidence of ischemia, likely from her recent STEMI, with sinus tachycardia, no acute STEMI Before I left the ICU, the patient's systolic blood pressure was in the 180s and her heart rate was in the 120s. MAYRA HOLBROOK MD Oct 03, 2016 23:19
[2016-10-03] MEDS ORDERED: ATROPINE 1 MG/10 ML SYRINGE IV ONE (23:30)
[2016-10-03] MEDS ORDERED: NORepinephrine 8MG/250 ML (PMX 250 ML IV SCH (23:30)
--- NOTE | 2016-10-03 23:30 | RADRPT ---
PROCEDURE: XR Chest. CLINICAL INDICATION: Portable chest x-ray TECHNIQUE: AP Portable chest. COMPARISON: 10/02/2016 chest x-ray FINDINGS: The soft tissues and bones are remarkable for 4.3 cm above the mary. A left PICC catheter is pres ent tip in the superior vena cava. No pneumothorax is present. Almost complete opacification of th e left hemithorax is present with obscuration of the left hemidiaphragm compatible to small left ple ural effusion. Multiple EKG leads and defibrillator paddles obscures optimal evaluation. Obscurati on of the aorta is noted. Mild cardiomegaly and interstitial edema is present. No pneumothorax is p resent. IMPRESSION: 1. Tubes and lines as indicated above. 2. Almost complete opacification left hemithorax with small left pleural effusion. 3. Mild cardiomegaly and cardiogenic pulmonary venous hypertension RPTAT: HDC .Bethany Feliciano MD, Date Time Electronically viewed and signed by .Bethany Feliciano MD, on 10/03/2016 23:29 .C/
[2016-10-03 23:50] LABS: AADO2 Arterial 580.6 mmHg (7.0-24.0); Allen Test ACCEPTAB; Arterial Base Excess -3.2 mmol/L (-3.0-3); Arterial COHb 0.3 % (0.0-3.0); Arterial Fraction of Oxyhgb 94.8 % (93.0-99.0); Arterial HCO3 23.1 mmol/L (22.0-26.0); Arterial MetHb 0.5 % (0.0-1.5); Arterial Total Hemglobin 12.2 g/dl (12.0-18.0); MODE VENT - AC
[2016-10-04] VITALS (101 sets, daily range): BP systolic 74–130; BP diastolic 41–80; PULSE 68–101; RESP 0–28
[2016-10-04] MEDS: INSULIN ASPART [NOVOLOG] 3 ML PEN SC SCH ×6 (01:00→21:10)
[2016-10-04 04:29] LABS: ADD SCAN DIFF NO
[2016-10-04 04:44] LABS: ABNORMAL IP MESSAGE 1; BASOPHILS % 0.1 % (0.0-2.0); EOSINOPHILS # 0.1 10^3/ul (0.0-0.5); EOSINOPHILS % 0.3 % (0.0-7.0); HEMATOCRIT 30.3 % (37.0-47.0); HEMOGLOBIN 9.4 g/dl (12.0-16.0); LYMPHOCYTES # 1.3 10^3/ul (0.8-2.9); LYMPHOCYTES % 4.4 % (15.0-51.0); MEAN CORPUSCULAR HEMOGLOBIN 27.9 pg (29.0-33.0); MEAN CORPUSCULAR VOLUME 89.9 fl (82.0-101.0); MEAN PLATELET VOLUME 11.2 fl (7.4-10.4); MONOCYTE # 1.7 10^3/ul (0.3-0.9); NEUTROPHIL # 25.4 10^3/ul (1.6-7.5); NEUTROPHILS % 88.2 % (39.0-77.0); NUCLEATED RED BLOOD CELLS # 0.9 10^3/ul (0.0-0.0); NUCLEATED RED BLOOD CELLS% 3.2 /100WBC (0.0-0.0); PLATELET COUNT 131 10^3/UL (140-415); RED BLOOD COUNT 3.37 10^6/ul (4.20-5.40); RED CELL DISTRIBUTION WIDTH 19.9 % (11.5-14.5); WHITE BLOOD COUNT 28.9 10^3/ul (4.8-10.8)
[2016-10-04 04:53] LABS: ALBUMIN 2.2 g/dl (3.3-4.9)
[2016-10-04 04:54] LABS: POTASSIUM 3.8 mmol/L (3.5-5.1)
[2016-10-04 04:56] LABS: ALBUMIN/GLOBULIN RATIO 0.66; BILIRUBIN,INDIRECT 0.4 mg/dl (0-1.1); BILIRUBIN,TOTAL 0.4 mg/dl (0.2-1.3); TOTAL PROTEIN 5.5 g/dl (6.1-8.1)
[2016-10-04] MEDS: PIPER-TAZO 2.25 GM (PMX) 50 ML IVPB SCH ×3 (05:04→21:07)
[2016-10-04 05:11] LABS: CREATININE 3.91 mg/dl (0.44-1.00)
--- NOTE | 2016-10-04 07:46 | RADRPT ---
PROCEDURE: XR Chest. CLINICAL INDICATION: ogt placement TECHNIQUE: Single frontal view of the chest was obtained. COMPARISON: Chest x-ray from 10/03/2016 FINDINGS: There has been interval placement of an enteric tube with its tip in the stomach. The tip of the endotracheal tube is unchanged in position. A left-sided PICC line is again noted with its tip at the superior cavoatrial junction. There is increased prominence of a likely developing consolidation at the right lung base. There is stable prominence of interstitial markings, likely due to mild congestive changes. There is a stable retrocardiac opacity due to atelectasis, infiltrate, and / or effusion. There is a stable small right pleural effusion. IMPRESSION: Interval placement of an enteric tube with its tip in the stomach. Endotracheal tube and left-sided PICC line are unchanged in position. Possible developing consolidation at the right lung base. Stable retrocardiac opacity due to atelectasis, infiltrate, and / or effusion. Stable mild congestive changes and small right pleural effusion. RPTAT: EE Physician Suzy Date Time Electronically viewed and signed by eJrad Gilliland Physician on 10/04/2016 07:45 /
--- NOTE | 2016-10-04 08:24 | PN ---
Date/Time of Note Date/Time of Note DATE: 10/04/16 TIME: 08:20 Assessment/Plan VTE Prophylaxis VTE Prophylaxis Intervention: SCD's Lines/Catheters IV Catheter Type (from Nrs): PICC Line Central line still needed: Yes Urinary Cath still in place: Yes Reason Cath still needed: other (indicate) (intubated) Assessment/Plan Chief Complaint/Hosp Course Patient admitted with stemi of inferior wall Problems: Assessment/Plan STEMI of inferior wall, post pci and placement of two drug-eluting stents to the RCA Respiratory failure requiring reintubation last night PEA arrest post intubation Acute renal failure, ATN, requiring dialysis Elevated LFT's, improving GI bleed, resolved Recommendations: Continue aspirin and clopidogrel for stent patency Atorvastatin at high dose Requiring levophed, will stop metoprolol for now Dialysis as per nephrology Consideration of trach as per pulmonary Prognosis guarded Subjective 24 Hr Interval Summary Free Text/Dictation Events of yesterday and last night noted -- vasovagal event during the day, intubated last night, PEA arrest and resuscitated, now intubated on a small dose of neosynephrine. Eyes open and track, not responding to questions. Subjective hx not possible: pt non-verbal (intubated) Exam/Review of Systems Vital Signs Vitals Vital Signs Date Time Temp Pulse Resp B/P Pulse Ox O2 Delivery O2 Flow Rate FiO2 10/04/16 07:00 80 16 103/54 100 Mechanical Ventilator 10/04/16 05:18 100 10/04/16 04:00 97.2 10/03/16 12:00 12.0 Intake and Output 10/03/16 10/03/16 10/04/16 15:00 23:00 07:00 Intake Total 300 ml 1545 ml 400.625 ml Output Total 654 ml 2645 ml 125 ml Balance -354 ml -1100 ml 275.625 ml Exam Constitutional: alert (intubated) Head: atraumatic, normocephalic Eyes: EOMI, nl sclera ENMT: intubated Neck: No bruits, No jvd Respiratory: clear to auscultation, normal air movement Cardiovascular: regular rate and rhythm, No murmurs/extra sounds Gastrointestinal: soft Musculoskeletal: nl extremities to inspection Extremities: pitting pedal edema Skin: No rash or lesions Results Result Diagram: 10/04/16 04010/04/16 0400 Results 24 hrs Laboratory Tests Test 10/03/16 08:54 10/03/16 11:00 10/03/16 13:08 10/03/16 18:22 Bedside Glucose 109 118 118 Blood Gas Specimen Source Blood arterial Arterial Blood Date Drawn 10/03/2016 11:05:07 AM Arterial Blood pH (Temp corrected) 7.337 L Arterial Blood pCO2 (Temp correct) 43.4 Arterial Blood pO2 (Temp corrected) 63.7 L Arterial Blood HCO3 22.7 Arterial Blood Base Excess -3.0 Arterial Blood Oxygen Saturation 89.8 L Raz Test ACCEPTAB Arterial Blood Gas Puncture Site Right Radial Arterial Blood Carboxyhemoglobin 0.1 Arterial Blood Methemoglobin 0.3 Blood Gas A-a O2 Differential 381.5 H Oxyhemoglobin Percent 89.4 L Total Hemoglobin 10.9 L Blood Gas Temperature 37.0 Blood Gas Modality MASK - SIMPLE FiO2 69.0 Blood Gas Notified Whom JLD Blood Gas Notified Time 10/03/2016 11:13:37 AM Test 10/03/16 20:28 10/03/16 21:20 10/03/16 23:20 10/04/16 00:44 Bedside Glucose 123 112 Blood Gas Specimen Source Blood arterial Blood arterial Arterial Blood Date Drawn 10/03/2016 9:30:36 PM 10/03/2016 11:40:53 PM Arterial Blood pH (Temp corrected) 7.266 *L 7.313 L Arterial Blood pCO2 (Temp correct) 56.4 H 46.7 H Arterial Blood pO2 (Temp corrected) 164.7 H 85.7 Arterial Blood HCO3 25.1 23.1 Arterial Blood Base Excess -2.3 -3.2 L Arterial Blood Oxygen Saturation 98.5 H 95.6 Raz Test ACCEPTAB ACCEPTAB Arterial Blood Gas Puncture Site Right Radial Right Radial Arterial Blood Carboxyhemoglobin 0.3 0.3 Arterial Blood Methemoglobin 0.6 0.5 Blood Gas A-a O2 Differential 491.9 H 580.6 H Oxyhemoglobin Percent 97.6 94.8 Total Hemoglobin 10.4 L 12.2 Blood Gas Temperature 37.0 37.0 Blood Gas Respiration Rate 20.0 16.0 Blood Gas Actual Respiration Rate 20 16 Blood Gas Modality MASK - BIPAP VENT - AC FiO2 100.0 100.0 Blood Gas Pressure Support 8 Blood Gas IPAP/EPAP Ratio 16/8 Blood Gas Critical Value Read Back MDRDIONISIO RN Blood Gas Notified Whom RERE JERNIGAN Blood Gas Notified Time 10/03/2016 9:41:29 PM 10/03/2016 11:49:53 PM Blood Gas Tidal Volume 500.0 Blood Gas Low PEEP Setting 5.0 Test 10/04/16 04:00 10/04/16 05:03 White Blood Count 28.9 #H Red Blood Count 3.37 L Hemoglobin 9.4 L Hematocrit 30.3 L Mean Corpuscular Volume 89.9 Mean Corpuscular Hemoglobin 27.9 L Mean Corpuscular Hemoglobin Concent 31.0 L Red Cell Distribution Width 19.9 H Platelet Count 131 L Mean Platelet Volume 11.2 H Neutrophils % 88.2 H Lymphocytes % 4.4 L Monocytes % 6.0 Eosinophils % 0.3 Basophils % 0.1 Nucleated Red Blood Cells % 3.2 H Neutrophils # 25.4 H Lymphocytes # 1.3 Monocytes # 1.7 H Eosinophils # 0.1 Basophils # 0.0 Nucleated Red Blood Cells # 0.9 H Sodium Level 142 Potassium Level 3.8 Chloride Level 104 Carbon Dioxide Level 27 Anion Gap 15 Blood Urea Nitrogen 64 #H Creatinine 3.91 #H Glucose Level 115 Calcium Level 8.0 L Total Bilirubin 0.4 Direct Bilirubin 0.00 Indirect Bilirubin 0.4 Aspartate Amino Transf (AST/SGOT) 179 H Alanine Aminotransferase (ALT/SGPT) 364 H Alkaline Phosphatase 283 H Total Protein 5.5 L Albumin 2.2 L Globulin 3.30 H Albumin/Globulin Ratio 0.66 Bedside Glucose 116 Medications Medications Current Medications Miscellaneous Information 1 ea NOTE XX ; Start 09/20/16 at 22:00 Glucose (Glutose) 15 gm Q15M PRN PO DECREASED GLUCOSE; Start 09/20/16 at 22:00 Glucose (Glutose) 22.5 gm Q15M PRN PO DECREASED GLUCOSE; Start 09/20/16 at 22: 00 Glucagon (Glucagen) 1 mg Q15M PRN IM DECREASED GLUCOSE; Start 09/20/16 at 22:00 Glucose (Glutose) 15 gm Q15M PRN BUCCAL DECREASED GLUCOSE; Start 09/20/16 at 22 :00 Acetaminophen (Tylenol Liquid) 650 mg Q4H PRN NGT PAIN AND OR ELEVATED TEMP Last administered on 09/27/16t 05:14; Admin Dose 650 MG; Start 09/21/16 at 02:00 Eye Lubricant (Artificial Tears Oph) 2 drop QID BOTH EYES Last administered on 10/03/16 20:29; Admin Dose 2 DROP; Start 09/21/16 at 09:00 Dextrose (D50w Syringe) 25 ml Q15M PRN IV Till BS 80 mg/dL or above x2; Start 09/21/16 at 08:00 Dextrose (D50w Syringe) 50 ml Q15M PRN IV Till BS 80 mg/dL or above x2; Start 09/21/16 at 08:00 Atorvastatin Calcium (Lipitor) 80 mg HS NGT Last administered on 10/02/16 20: 16; Admin Dose 80 MG; Start 09/22/16 at 21:00 Insulin Aspart (Novolog Insulin Pen) NOVOLOG *MILD* ALGORI... Q4 SC Last administered on 10/03/16 05:38; Admin Dose 1 UNIT; Start 09/25/16 at 13:00 Pantoprazole (Protonix Iv) 40 mg AM IV Last administered on 10/03/16 09:01; Admin Dose 40 MG; Start 09/26/16 at 09:00 Epoetin Raj (Epogen (Esrd)) 10,000 units TuThSa@17 SC Last administered on 20:34; Admin Dose 10,000 UNITS; Start 09/26/16 at 17:00 IV Flush (NS 10 ml) 10 ml PRN PRN IV IV PROTOCOL; Start 09/26/16 at 17:30 Aspirin (Aspirin) 81 mg DAILY NGT Last administered on 10/03/16 09:02; Admin Dose 81 MG; Start 09/27/16 at 09:00 Clopidogrel Bisulfate 75 mg 75 mg DAILY NGT Last administered on 10/03/16 09: 01; Admin Dose 75 MG; Start 09/27/16 at 09:00 Piperacillin Sod/ Tazobactam Sod (Zosyn 2.25gm/ 50ml (Pmx)) 50 ml @ 100 mls/hr Q8 IVPB Last administered on 10/04/16 05:04; Admin Dose 100 MLS/HR; Start at 14:00 Morphine Sulfate (morphine) 2 mg Q4H PRN IV PAIN Last administered on 16:50; Admin Dose 2 MG; Start 09/28/16 at 16:00 Metoprolol Tartrate (Lopressor) 25 mg BID GTB Last administered on 10/03/16 09 :02; Admin Dose 25 MG; Start 09/28/16 at 21:00 Insulin Glargine (Lantus) 40 unit DAILY@08 SC Last administered on 10/03/16 09 :03; Admin Dose 40 UNIT; Start 10/02/16 at 08:00 Sodium Biphosphate/ Sodium Phosphate (Fleet Enema) 133 ml DAILY PRN MS CONSTIPATION; Start 10/01/16 at 17:00 Fluconazole 150 mg 150 mg ONCE ONCE PO ; Start 10/04/16 at 09:00; Stop at 09:01 Norepinephrine 16 mg/Dextrose 500 ml @ 1.87 mls/hr TITRATE IV ; Start 10/04/16 at 07:00 Dextrose/Sodium Chloride (D5-1/2ns) 1,000 ml @ 50 mls/hr Q20H IV ; Start at 08:30 BENJAMIN OSEGUERA Oct 04, 2016 08:24
[2016-10-04] MEDS: DEXTROSE 5%-0.45% NACL 1,000 ML IV SCH (08:37)
[2016-10-04] MEDS ORDERED: FUROSEMIDE 100 MG INJ IV SCH ×2 (09:00)
[2016-10-04] MEDS ORDERED: FLUCONAZOLE 150 MG TAB PO ONE (09:00)
[2016-10-04] MEDS: ASPIRIN 81 MG TAB NGT SCH (09:40)
[2016-10-04] MEDS: PANTOPRAZOLE 40 MG INJ IV SCH (09:40)
[2016-10-04] MEDS: CLOPIDOGREL 75 MG TAB NGT SCH (09:40)
[2016-10-04] MEDS: ARTIFICIAL TEARS 15 ML OPH BOTH EYES SCH ×4 (09:42→21:07)
[2016-10-04] MEDS: INSULIN GLARGINE [LANtus] 3 ML PEN SC SCH (09:42)
--- NOTE | 2016-10-04 10:53 | CONS ---
Date/Time of Note Date/Time of Note DATE: 10/04/16 TIME: 10:50 Consult Date/Type/Reason Admit Date/Time Sep 20, 2016 at 19:21 Initial Consult Date 09/23/16 Type of Consultation: Pulmonary/critical care Ordering Provider: Z[facility]DRA ROBISON MD, [facility] Subjective Increasing shortness of breath overnight requiring reintubation Transient asystole following administration of sedatives Required CPR but now is awake and alert oriented intubated Objective Vital Signs Date Time Temp Pulse Resp B/P Pulse Ox O2 Delivery O2 Flow Rate FiO2 10/04/16 09:00 79 16 94/50 100 Mechanical Ventilator 10/04/16 08:00 98.6 10/04/16 05:18 100 10/03/16 12:00 12.0 Intake and Output 10/03/16 10/03/16 10/04/16 15:00 23:00 07:00 Intake Total 300 ml 1545 ml 456.250 ml Output Total 654 ml 2645 ml 125 ml Balance -354 ml -1100 ml 331.250 ml Exam PHYSICAL EXAMINATION GENERAL: Elderly lady intubated on mechanical ventilation HEENT pupils equal, round, and reactive to light. CARDIAC: S1, S2, 3/6 systolic ejection murmur CHEST: Diminished air entry bilaterally. ABDOMEN: Mildly distended. Bowel sounds present no guarding or rebound EXTREMITIES: No cyanosis, clubbing edema +2 NEUROLOGIC: Generalized weakness Skin: purpuric lesions Results/Medications Result Diagram: 10/04/16 0400 10/04/16 0400 Results 24 hrs Laboratory Tests Test 10/03/16 11:00 10/03/16 13:08 10/03/16 18:22 10/03/16 20:28 Blood Gas Specimen Source Blood arterial Arterial Blood Date Drawn 10/03/2016 11:05:07 AM Arterial Blood pH (Temp corrected) 7.337 L Arterial Blood pCO2 (Temp correct) 43.4 Arterial Blood pO2 (Temp corrected) 63.7 L Arterial Blood HCO3 22.7 Arterial Blood Base Excess -3.0 Arterial Blood Oxygen Saturation 89.8 L Raz Test ACCEPTAB Arterial Blood Gas Puncture Site Right Radial Arterial Blood Carboxyhemoglobin 0.1 Arterial Blood Methemoglobin 0.3 Blood Gas A-a O2 Differential 381.5 H Oxyhemoglobin Percent 89.4 L Total Hemoglobin 10.9 L Blood Gas Temperature 37.0 Blood Gas Modality MASK - SIMPLE FiO2 69.0 Blood Gas Notified Whom ARNOLDO Blood Gas Notified Time 10/03/2016 11:13:37 AM Bedside Glucose 118 118 123 Test 10/03/16 21:20 10/03/16 23:20 10/04/16 00:44 10/04/16 04:00 Blood Gas Specimen Source Blood arterial Blood arterial Arterial Blood Date Drawn 10/03/2016 9:30:36 PM 10/03/2016 11:40:53 PM Arterial Blood pH (Temp corrected) 7.266 *L 7.313 L Arterial Blood pCO2 (Temp correct) 56.4 H 46.7 H Arterial Blood pO2 (Temp corrected) 164.7 H 85.7 Arterial Blood HCO3 25.1 23.1 Arterial Blood Base Excess -2.3 -3.2 L Arterial Blood Oxygen Saturation 98.5 H 95.6 Raz Test ACCEPTAB ACCEPTAB Arterial Blood Gas Puncture Site Right Radial Right Radial Arterial Blood Carboxyhemoglobin 0.3 0.3 Arterial Blood Methemoglobin 0.6 0.5 Blood Gas A-a O2 Differential 491.9 H 580.6 H Oxyhemoglobin Percent 97.6 94.8 Total Hemoglobin 10.4 L 12.2 Blood Gas Temperature 37.0 37.0 Blood Gas Respiration Rate 20.0 16.0 Blood Gas Actual Respiration Rate 20 16 Blood Gas Modality MASK - BIPAP VENT - AC FiO2 100.0 100.0 Blood Gas Pressure Support 8 Blood Gas IPAP/EPAP Ratio 16/8 Blood Gas Critical Value Read Back MDRDIONISIO RN Blood Gas Notified Whom RERE JERNIGAN Blood Gas Notified Time 10/03/2016 9:41:29 PM 10/03/2016 11:49:53 PM Blood Gas Tidal Volume 500.0 Blood Gas Low PEEP Setting 5.0 Bedside Glucose 112 White Blood Count 28.9 #H Red Blood Count 3.37 L Hemoglobin 9.4 L Hematocrit 30.3 L Mean Corpuscular Volume 89.9 Mean Corpuscular Hemoglobin 27.9 L Mean Corpuscular Hemoglobin Concent 31.0 L Red Cell Distribution Width 19.9 H Platelet Count 131 L Mean Platelet Volume 11.2 H Neutrophils % 88.2 H Lymphocytes % 4.4 L Monocytes % 6.0 Eosinophils % 0.3 Basophils % 0.1 Nucleated Red Blood Cells % 3.2 H Neutrophils # 25.4 H Lymphocytes # 1.3 Monocytes # 1.7 H Eosinophils # 0.1 Basophils # 0.0 Nucleated Red Blood Cells # 0.9 H Sodium Level 142 Potassium Level 3.8 Chloride Level 104 Carbon Dioxide Level 27 Anion Gap 15 Blood Urea Nitrogen 64 #H Creatinine 3.91 #H Glucose Level 115 Calcium Level 8.0 L Total Bilirubin 0.4 Direct Bilirubin 0.00 Indirect Bilirubin 0.4 Aspartate Amino Transf (AST/SGOT) 179 H Alanine Aminotransferase (ALT/SGPT) 364 H Alkaline Phosphatase 283 H Total Protein 5.5 L Albumin 2.2 L Globulin 3.30 H Albumin/Globulin Ratio 0.66 Test 10/04/16 05:03 10/04/16 08:33 Bedside Glucose 116 81 Medications Current Medications Miscellaneous Information 1 ea NOTE XX ; Start 09/20/16 at 22:00 Glucose (Glutose) 15 gm Q15M PRN PO DECREASED GLUCOSE; Start 09/20/16 at 22:00 Glucose (Glutose) 22.5 gm Q15M PRN PO DECREASED GLUCOSE; Start 09/20/16 at 22: 00 Glucagon (Glucagen) 1 mg Q15M PRN IM DECREASED GLUCOSE; Start 09/20/16 at 22:00 Glucose (Glutose) 15 gm Q15M PRN BUCCAL DECREASED GLUCOSE; Start 09/20/16 at 22 :00 Acetaminophen (Tylenol Liquid) 650 mg Q4H PRN NGT PAIN AND OR ELEVATED TEMP Last administered on 09/27/16 05:14; Admin Dose 650 MG; Start 09/21/16 at 02:00 Eye Lubricant (Artificial Tears Oph) 2 drop QID BOTH EYES Last administered on 10/04/16 09:42; Admin Dose 2 DROP; Start 09/21/16 at 09:00 Dextrose (D50w Syringe) 25 ml Q15M PRN IV Till BS 80 mg/dL or above x2; Start 09/21/16 at 08:00 Dextrose (D50w Syringe) 50 ml Q15M PRN IV Till BS 80 mg/dL or above x2; Start 09/21/16 at 08:00 Atorvastatin Calcium (Lipitor) 80 mg HS NGT Last administered on 10/02/16 20: 16; Admin Dose 80 MG; Start 09/22/16 at 21:00 Insulin Aspart (Novolog Insulin Pen) NOVOLOG *MILD* ALGORI... Q4 SC Last administered on 10/03/16 05:38; Admin Dose 1 UNIT; Start 09/25/16 at 13:00 Pantoprazole (Protonix Iv) 40 mg AM IV Last administered on 10/04/16 09:40; Admin Dose 40 MG; Start 09/26/16 at 09:00 Epoetin Raj (Epogen (Esrd)) 10,000 units TuThSa@17 SC Last administered on 20:34; Admin Dose 10,000 UNITS; Start 09/26/16 at 17:00 IV Flush (NS 10 ml) 10 ml PRN PRN IV IV PROTOCOL; Start 09/26/16 at 17:30 Aspirin (Aspirin) 81 mg DAILY NGT Last administered on 10/04/16 09:40; Admin Dose 81 MG; Start 09/27/16 at 09:00 Clopidogrel Bisulfate 75 mg 75 mg DAILY NGT Last administered on 10/04/16 09: 40; Admin Dose 75 MG; Start 09/27/16 at 09:00 Piperacillin Sod/ Tazobactam Sod (Zosyn 2.25gm/ 50ml (Pmx)) 50 ml @ 100 mls/hr Q8 IVPB Last administered on 10/04/16 05:04; Admin Dose 100 MLS/HR; Start at 14:00 Morphine Sulfate (morphine) 2 mg Q4H PRN IV PAIN Last administered on 16:50; Admin Dose 2 MG; Start 09/28/16 at 16:00 Insulin Glargine (Lantus) 40 unit DAILY@08 SC Last administered on 10/04/16 09 :42; Admin Dose 40 UNIT; Start 10/02/16 at 08:00 Sodium Biphosphate/ Sodium Phosphate 133 ml 133 ml DAILY PRN PA CONSTIPATION; Start 10/01/16 at 17:00 Norepinephrine 16 mg/Dextrose 500 ml @ 1.87 mls/hr TITRATE IV ; Start 10/04/16 at 07:00 Dextrose/Sodium Chloride (D5-1/2ns) 1,000 ml @ 50 mls/hr Q20H IV Last administered on 10/04/16 08:37; Admin Dose 50 MLS/HR; Start 10/04/16 at 08:30 Assessment/Plan Chief Complaint/Hosp Course IMPRESSION 1. Status post Cardiac arrest. ST elevation IA stent placement to RCA significant bradycardia possibly vasovagal 2. Significant neurological recovery from initial encephalopathy 3. Acute renal failure, probably acute tubular necrosis injury. Now on hemodialysis 4. Status post Shock liver. 5. Hypoxemic respiratory failure now reintubated Plan 1. Continue mechanical ventilation 2. Continue renal recommendations. Hemodialysis as tolerated 3. Vasopressors if needed 4. Broad-spectrum antibiotic coverage. 5. Glycemic management. 6. Speech therapy evaluation 7. Physical therapy evaluation Disposition Continue ICU supportive care Problems: ZANDRA ROBISON MD, [facility] Oct 04, 2016 10:53
--- NOTE | 2016-10-04 17:56 | PN ---
DATE: 10/04/2016 SUBJECTIVE: The patient was developing respiratory distress on room air yesterday, requiring BiPAP and she failed that going into respiratory distress and required intubation. The patient then coded and required resuscitation. The patient currently on vasopressor and had an orogastric tube placed for medications and feeding. Apparently prior to the respiratory distress, the patient was awake, alert and able to respond appropriately to inquiries. OBJECTIVE: VITAL SIGNS: Temperature 98.7, blood pressure 102/49, pulse of 86, respiratory rate 21, O2 saturati on 100% on mechanical ventilator. LUNGS: Clear to auscultation anteriorly. CARDIAC: Regular rate and rhythm. ABDOMEN: Hypoactive bowel sounds. Nondistended. EXTREMITIES: Diffuse increased edema of bilateral upper extremities and bilateral lower extremities . Left second toe with blackness around the toenail and right distal toes cyanosis. LABORATORY DATA: WBC 28.9, hemoglobin 9.4, hematocrit 30.3, platelet count 131,000. Sodium 142, po tassium 3.8, chloride 104, carbon dioxide 27, BUN 64, creatinine 3.9, glucose 115. Liver enzymes sh ow elevation of AST at 179, ALT at 364, alkaline phosphatase at 283. Total protein has decreased to 5.5 and albumin at 2.2 with elevated globulin of 3.3. The blood cultures have been negative so far . Urine cultures have grown Erica albicans and Erica glabrata. The sputum cultures are growing E. coli. The patient's chest x-ray done this morning shows an enteric tube with the tip in the stomach. Endo tracheal tube and left-sided PICC lines are unchanged in position. Possible developing consolidatio n at the right lung base. There is stable retrocardiac opacity and stable congestive changes and sm all right pleural effusion. ASSESSMENT AND PLAN: Cardiorespiratory failure, possibly due to heart failure following acute ST el evation myocardial infarction last week. However, there are new pulmonary changes and persistent le ukocytosis. The patient currently on Zosyn and was given 1 dose of Diflucan orally. I will consult infectious disease for further antibiotic management. For now, we will continue cardiovascular and respiratory support per pulmonary and funeral car driver. Dictated By: SONALI WALKER MD DP/NTS Conf#: [id number] DID#: [id number]
[2016-10-04] MEDS ORDERED: FLUCONAZOLE 100 MG TAB GTB SCH (18:00)
--- NOTE | 2016-10-04 18:16 | CONS ---
DATE OF ADMISSION: 09/20/2016 DATE OF CONSULTATION: 10/04/2016 TYPE OF CONSULTATION: Infectious Disease. REASON FOR CONSULTATION: Antibiotic management. HISTORY OF PRESENT ILLNESS: There is a 71-year-old female who is admitted with ST elevation myocard ial infarction and profoundly tachycardia. Problems include: 1. Adult-onset diabetes mellitus. 2. Hyperlipidemia. 3. Hypertension. Acutely, she was found unconscious and unresponsive and was brought to the hospital with a code STEM I. She had catheterization and stenting of the RCA by Dr. Fuller as well as temporary pacemaker w ires placed. The patient was started on hypothermic protocol in the ICU and monitored. She has rem ained stable on pressure support and ongoing hypothermic protocol. She also has a history of glauco ma in the past. On admission, her white count was 28,100, H and H of 12.7 and 42.8, platelet count 278,000. Her whi te count on 09/21/2016 was 20.7. BUN and creatinine 25/2.78. Blood cultures were negative. She le s some degree of acute renal failure. HOSPITAL COURSE: She was seen by numerous physicians including Dr. Newberry. She is intubated, unre sponsive to commands. On 09/24/2016, her white count was 20.7. Currently, she had to be reintubate d by emergency room. She had, as noted, PCI with stent placement. She is on BiPAP and had worsenin g respiratory failure. She was seen today by Dr. Newberry who noted increasing shortness of breath r equiring intubation, required CPR. PAST MEDICAL HISTORY: Operations as outlined. FAMILY HISTORY: Noncontributory. SOCIAL HISTORY: She does not smoke, drink, or abuse drugs. ALLERGIES: NONE TO PENICILLIN, SULFA, OR FOODS. MEDICATIONS: Per chart. REVIEW OF SYSTEMS: As per HPI. PHYSICAL EXAMINATION: GENERAL: The patient is an elderly appearing female who is intubated on mechanical ventilation. VITAL SIGNS: Stable. She is afebrile. SKIN: Without generalized rash. She has ____ lesions on her body. HEENT: Within normal limits. She is intubated. NECK: Supple. LYMPH NODES: None palpable. CHEST: Decreased breath sounds at the bases. HEART: Grade III/ systolic ejection murmur along the left sternal border. ABDOMEN: Soft, distended, nontender, without organosplenomegaly or masses. EXTREMITIES: Without cyanosis, clubbing, or edema. RECTAL AND GENITAL: Deferred. NEUROLOGIC: The patient is sedated. LABORATORY DATA: She has an enteric tube with its tip in the stomach. She has left-sided PICC line . She has increased consolidation at the right lung base. She has prominence of interstitial amanda ngs. She has been developing consolidation at the lung base, probably related to aspiration pneumon itis. The Gram stain of the sputum from 10/02/2016 grew E. coli which was sensitive to virtually ev erything and normal respiratory venu. Blood cultures were negative. Urine grew Erica albicans. Currently, she is on norepinephrine. She is on Zosyn. She received fluconazole on 10/03/2016. Re cent white count is 28.9. Her urine is 3+ leukocyte esterase and 10 to 25 white cells per high-lanette r field. BUN and creatinine are 64/3.91. We are going to add fluconazole to her regimen. I will d ictate my findings to Dr. Ayaan Simms and to the numerous consultants. Dictated By: NOEMI WHITTEN MD, JD/JERROD Conf#: [id number] DID#: [id number]
[2016-10-04] MEDS: morphine 2 MG INJ IV PRN (20:30)
[2016-10-04] MEDS: ATORVASTATIN 80 MG TAB NGT SCH (21:07)
[2016-10-05] VITALS (42 sets, daily range): BP systolic 94–138; BP diastolic 42–99; PULSE 76–95; RESP 14–25
[2016-10-05] MEDS: INSULIN ASPART [NOVOLOG] 3 ML PEN SC SCH ×5 (01:18→16:53)
[2016-10-05] MEDS: DEXTROSE 5%-0.45% NACL 1,000 ML IV SCH (04:26)
[2016-10-05] MEDS: morphine 2 MG INJ IV PRN ×3 (05:04→13:08)
[2016-10-05] MEDS: PIPER-TAZO 2.25 GM (PMX) 50 ML IVPB SCH ×3 (05:04→22:42)
[2016-10-05 05:31] LABS: ADD SCAN DIFF NO
[2016-10-05 06:02] LABS: ABNORMAL IP MESSAGE 1; BASOPHILS % 0.1 % (0.0-2.0); EOSINOPHILS # 0.1 10^3/ul (0.0-0.5); EOSINOPHILS % 0.2 % (0.0-7.0); HEMATOCRIT 27.5 % (37.0-47.0); HEMOGLOBIN 8.5 g/dl (12.0-16.0); LYMPHOCYTES # 1.7 10^3/ul (0.8-2.9); LYMPHOCYTES % 6.7 % (15.0-51.0); MEAN CORPUSCULAR HEMOGLOBIN 28.1 pg (29.0-33.0); MEAN CORPUSCULAR HGB CONC 30.9 g/dl (32.0-37.0); MEAN CORPUSCULAR VOLUME 90.8 fl (82.0-101.0); MEAN PLATELET VOLUME 11.5 fl (7.4-10.4); MONOCYTE # 1.6 10^3/ul (0.3-0.9); MONOCYTES % 6.6 % (0.0-11.0); NEUTROPHIL # 20.9 10^3/ul (1.6-7.5); NEUTROPHILS % 85.2 % (39.0-77.0); NUCLEATED RED BLOOD CELLS # 0.6 10^3/ul (0.0-0.0); NUCLEATED RED BLOOD CELLS% 2.3 /100WBC (0.0-0.0); PLATELET COUNT 166 10^3/UL (140-415); RED BLOOD COUNT 3.03 10^6/ul (4.20-5.40); WHITE BLOOD COUNT 24.5 10^3/ul (4.8-10.8)
[2016-10-05 06:05] LABS: ALBUMIN 2.3 g/dl (3.3-4.9)
[2016-10-05 06:06] LABS: POTASSIUM 3.8 mmol/L (3.5-5.1)
[2016-10-05 06:08] LABS: BILIRUBIN,DIRECT 0.3 mg/dl (0.00-0.20); BILIRUBIN,INDIRECT 0.5 mg/dl (0-1.1); BILIRUBIN,TOTAL 0.8 mg/dl (0.2-1.3); TOTAL PROTEIN 5.5 g/dl (6.1-8.1)
[2016-10-05 06:09] LABS: CALCIUM 7.6 mg/dl (8.4-10.2); MAGNESIUM 2.2 mg/dl (1.7-2.5); PHOSPHORUS 7.1 mg/dl (2.5-4.9)
[2016-10-05 06:12] LABS: ALBUMIN/GLOBULIN RATIO 0.71
[2016-10-05 06:28] LABS: CREATININE 4.51 mg/dl (0.44-1.00)
--- NOTE | 2016-10-05 06:58 | RADRPT ---
PROCEDURE: XR Chest. CLINICAL INDICATION: Shortness of breath. TECHNIQUE: Single frontal view. COMPARISON: 10/04/2016. FINDINGS: The endotracheal tube, nasogastric tube, and left arm PICC line remain in satisfactory position. r space disease in the right mid and lower lung zones is slightly worse than seen previously. The l ungs are otherwise clear. The heart is mildly enlarged. There is a moderate right pleural effusion. There is no left pleural effusion. There is no pneumothorax. IMPRESSION: 1. Tubes and lines in satisfactory position. 2. Worse appearance of the right lung base and larger right pleural effusion. 3. No other change from 10/04/2016. RPTAT: QQ .Arnaldo Back MD, MD Date Time Electronically viewed and signed by .Arnaldo Back MD, on 10/05/2016 06:58 .R/
[2016-10-05] MEDS: INSULIN GLARGINE [LANtus] 3 ML PEN SC SCH (08:20)
[2016-10-05] MEDS: ARTIFICIAL TEARS 15 ML OPH BOTH EYES SCH ×4 (08:21→20:49)
[2016-10-05] MEDS: FLUCONAZOLE 100 MG TAB GTB SCH (08:39)
[2016-10-05] MEDS: CLOPIDOGREL 75 MG TAB NGT SCH (08:39)
[2016-10-05] MEDS: ASPIRIN 81 MG TAB NGT SCH (08:39)
[2016-10-05] MEDS: PANTOPRAZOLE 40 MG INJ IV SCH (08:39)
[2016-10-05 08:52] LABS: AADO2 Arterial 163.7 mmHg (7.0-24.0); Allen Test ACCEPTAB; Arterial Base Excess -2.1 mmol/L (-3.0-3); Arterial COHb 0.3 % (0.0-3.0); Arterial Fraction of Oxyhgb 73.2 % (93.0-99.0); Arterial HCO3 22.5 mmol/L (22.0-26.0); Arterial MetHb 0.6 % (0.0-1.5); Arterial Total Hemglobin 9.5 g/dl (12.0-18.0); MODE VENT - AC
[2016-10-05 09:18] LABS: AADO2 Arterial 123.3 mmHg (7.0-24.0); Allen Test ACCEPTAB; Arterial Base Excess -2.5 mmol/L (-3.0-3); Arterial COHb 0.3 % (0.0-3.0); Arterial Fraction of Oxyhgb 94.5 % (93.0-99.0); Arterial HCO3 21.7 mmol/L (22.0-26.0); Arterial MetHb 0.4 % (0.0-1.5); Arterial Total Hemglobin 9.1 g/dl (12.0-18.0); MODE VENT - AC
--- NOTE | 2016-10-05 09:47 | CONS ---
Date/Time of Note Date/Time of Note DATE: 10/05/16 TIME: 09:45 Assessment/Plan Assessment/Plan Additional Assessment/Plan 1. Acute renal failure, will eval for HD tomm. 2. Pneumonia, abx per id 3. Respir failure, per pulmonary Consultation Date/Type/Reason Admit Date/Time Sep 20, 2016 at 19:21 Initial Consult Date 09/23/16 Type of Consultation: Pulmonary/critical care Referring Provider: ZANDRA ROBISON MD, [facility] 24 HR Interval Summary Constitutional: other (intubated, responds to name) Exam/Review of Systems Vital Signs Vitals Vital Signs Date Time Temp Pulse Resp B/P Pulse Ox O2 Delivery O2 Flow Rate FiO2 10/05/16 09:00 76 16 107/52 100 Mechanical Ventilator 10/05/16 08:00 35 10/05/16 08:00 98.2 10/03/16 12:00 12.0 Intake and Output 10/04/16 10/04/16 10/05/16 15:00 23:00 07:00 Intake Total 617.109 ml 720.00 ml 698.433 ml Output Total 85 ml 100 ml 70 ml Balance 532.109 ml 620.00 ml 628.433 ml Exam Neck: No jvd Respiratory: diminished breath sounds Cardiovascular: regular rate and rhythm Gastrointestinal: soft Extremities: edema (sacral 2+ and trace leg edema) Results Result Diagram: 10/05/16 0500 10/05/16 0500 Results 24 hrs Laboratory Tests Test 10/04/16 14:13 10/04/16 18:25 10/04/16 21:08 10/05/16 01:15 Bedside Glucose 114 189 202 237 H Test 10/05/16 04:26 10/05/16 05:00 10/05/16 07:00 10/05/16 08:17 Bedside Glucose 234 H 270 H White Blood Count 24.5 H Red Blood Count 3.03 L Hemoglobin 8.5 L Hematocrit 27.5 L Mean Corpuscular Volume 90.8 Mean Corpuscular Hemoglobin 28.1 L Mean Corpuscular Hemoglobin Concent 30.9 L Red Cell Distribution Width 21.0 H Platelet Count 166 # Mean Platelet Volume 11.5 H Neutrophils % 85.2 H Lymphocytes % 6.7 L Monocytes % 6.6 Eosinophils % 0.2 Basophils % 0.1 Nucleated Red Blood Cells % 2.3 H Neutrophils # 20.9 H Lymphocytes # 1.7 Monocytes # 1.6 H Eosinophils # 0.1 Basophils # 0.0 Nucleated Red Blood Cells # 0.6 H Sodium Level 138 Potassium Level 3.8 Chloride Level 102 Carbon Dioxide Level 22 Anion Gap 18 H Blood Urea Nitrogen 79 H Creatinine 4.51 H Glucose Level 229 #H Calcium Level 7.6 L Phosphorus Level 7.1 H Magnesium Level 2.2 Total Bilirubin 0.8 Direct Bilirubin 0.30 #H Indirect Bilirubin 0.5 Aspartate Amino Transf (AST/SGOT) 221 H Alanine Aminotransferase (ALT/SGPT) 314 H Alkaline Phosphatase 351 H Total Protein 5.5 L Albumin 2.3 L Globulin 3.20 Albumin/Globulin Ratio 0.71 Blood Gas Specimen Source Blood arterial Arterial Blood Date Drawn 10/05/2016 8:40:25 AM Arterial Blood pH (Temp corrected) 7.394 Arterial Blood pCO2 (Temp correct) 37.7 Arterial Blood pO2 (Temp corrected) 42.0 *L Arterial Blood HCO3 22.5 Arterial Blood Base Excess -2.1 Arterial Blood Oxygen Saturation 73.9 L Raz Test ACCEPTAB Arterial Blood Gas Puncture Site Right Radial Arterial Blood Carboxyhemoglobin 0.3 Arterial Blood Methemoglobin 0.6 Blood Gas A-a O2 Differential 163.7 H Oxyhemoglobin Percent 73.2 L Total Hemoglobin 9.5 L Blood Gas Temperature 37.0 Blood Gas Respiration Rate 16.0 Blood Gas Actual Respiration Rate 17 Blood Gas Modality VENT - AC FiO2 35.0 Blood Gas Tidal Volume 500.0 Blood Gas Low PEEP Setting 5.0 Blood Gas Critical Value Read Back Marva LOPEZ RN Blood Gas Notified Whom Shira FLANAGAN Blood Gas Notified Time 10/05/2016 8:52:14 AM Test 10/05/16 09:14 Blood Gas Specimen Source Blood arterial Arterial Blood Date Drawn 10/05/2016 9:06:36 AM Arterial Blood pH (Temp corrected) 7.413 Arterial Blood pCO2 (Temp correct) 34.7 L Arterial Blood pO2 (Temp corrected) 85.9 Arterial Blood HCO3 21.7 L Arterial Blood Base Excess -2.5 Arterial Blood Oxygen Saturation 95.2 Raz Test ACCEPTAB Arterial Blood Gas Puncture Site Left Radial Arterial Blood Carboxyhemoglobin 0.3 Arterial Blood Methemoglobin 0.4 Blood Gas A-a O2 Differential 123.3 H Oxyhemoglobin Percent 94.5 Total Hemoglobin 9.1 L Blood Gas Temperature 37.0 Blood Gas Respiration Rate 16.0 Blood Gas Actual Respiration Rate 17 Blood Gas Modality VENT - AC FiO2 35.0 Blood Gas Tidal Volume 500.0 Blood Gas Low PEEP Setting 5.0 Blood Gas Notified Whom TM Blood Gas Notified Time 10/05/2016 9:18:20 AM Medications Medications Current Medications Miscellaneous Information 1 ea NOTE XX ; Start 09/20/16 at 22:00 Glucose (Glutose) 15 gm Q15M PRN PO DECREASED GLUCOSE; Start 09/20/16 at 22:00 Glucose (Glutose) 22.5 gm Q15M PRN PO DECREASED GLUCOSE; Start 09/20/16 at 22: 00 Glucagon (Glucagen) 1 mg Q15M PRN IM DECREASED GLUCOSE; Start 09/20/16 at 22:00 Glucose (Glutose) 15 gm Q15M PRN BUCCAL DECREASED GLUCOSE; Start 09/20/16 at 22 :00 Acetaminophen (Tylenol Liquid) 650 mg Q4H PRN NGT PAIN AND OR ELEVATED TEMP Last administered on 09/27/16 05:14; Admin Dose 650 MG; Start 09/21/16 at 02:00 Eye Lubricant (Artificial Tears Oph) 2 drop QID BOTH EYES Last administered on 10/05/16 08:21; Admin Dose 2 DROP; Start 09/21/16 at 09:00 Dextrose (D50w Syringe) 25 ml Q15M PRN IV Till BS 80 mg/dL or above x2; Start 09/21/16 at 08:00 Dextrose (D50w Syringe) 50 ml Q15M PRN IV Till BS 80 mg/dL or above x2; Start 09/21/16 at 08:00 Atorvastatin Calcium (Lipitor) 80 mg HS NGT Last administered on 10/04/16 21: 07; Admin Dose 80 MG; Start 09/22/16 at 21:00 Insulin Aspart (Novolog Insulin Pen) NOVOLOG *MILD* ALGORI... Q4 SC Last administered on 10/05/16 08:22; Admin Dose 4 UNIT; Start 09/25/16 at 13:00 Pantoprazole (Protonix Iv) 40 mg AM IV Last administered on 10/05/16 08:39; Admin Dose 40 MG; Start 09/26/16 at 09:00 Epoetin Raj (Epogen (Esrd)) 10,000 units TuThSa@17 SC Last administered on 20:34; Admin Dose 10,000 UNITS; Start 09/26/16 at 17:00 IV Flush (NS 10 ml) 10 ml PRN PRN IV IV PROTOCOL; Start 09/26/16 at 17:30 Aspirin (Aspirin) 81 mg DAILY NGT Last administered on 10/05/16 08:39; Admin Dose 81 MG; Start 09/27/16 at 09:00 Clopidogrel Bisulfate 75 mg 75 mg DAILY NGT Last administered on 10/05/16 08:39 ; Admin Dose 75 MG; Start 09/27/16 at 09:00 Piperacillin Sod/ Tazobactam Sod (Zosyn 2.25gm/ 50ml (Pmx)) 50 ml @ 100 mls/hr Q8 IVPB Last administered on 10/05/16 05:04; Admin Dose 100 MLS/HR; Start 09/28 at 14:00 Morphine Sulfate (morphine) 2 mg Q4H PRN IV PAIN Last administered on 10/05/16 08:38; Admin Dose 2 MG; Start 09/28/16 at 16:00 Insulin Glargine (Lantus) 40 unit DAILY@08 SC Last administered on 10/05/16 08: 20; Admin Dose 40 UNIT; Start 10/02/16 at 08:00 Sodium Biphosphate/ Sodium Phosphate 133 ml 133 ml DAILY PRN [place] CONSTIPATION; Start 10/01/16 at 17:00 Norepinephrine 16 mg/Dextrose 500 ml @ 1.87 mls/hr TITRATE IV ; Start 10/04/16 at 07:00 Dextrose/Sodium Chloride (D5-1/2ns) 1,000 ml @ 50 mls/hr Q20H IV Last administered on 10/05/16 04:26; Admin Dose 50 MLS/HR; Start 10/04/16 at 08:30 Fluconazole (Diflucan) 100 mg DAILY GTB Last administered on 10/05/16 08:39; Admin Dose 100 MG; Start 10/05/16 at 09:00 FAZAL LAFLEUR MD Oct 05, 2016 09:47
--- NOTE | 2016-10-05 11:18 | RADRPT ---
Vent Rate: 142 bpm RR Interval: 0 msec [place] Interval: 0 msec QRS Duration: 94 msec QT Interval: 300 msec QTC Interval: 461 msec P-R-T [place]: 0 - 65 - [address] amp; T wave abnormality, consider inferolateral ischemia Abnormal ECG Electronically Signed By: Tanner Green [id number]
--- NOTE | 2016-10-05 11:18 | RADRPT ---
Vent Rate: 103 bpm RR Interval: 0 msec [place] Interval: 0 msec QRS Duration: 86 msec QT Interval: 356 msec QTC Interval: 466 msec P-R-T [place]: 0 - 8 - 106 degrees Accelerated Junctional rhythm Low voltage QRS Cannot rule out Inferior infarct , age undetermined Abnormal ECG Electronically Signed By: Tanner Green [id number]
[2016-10-05] MEDS ORDERED: ALBUMIN HUMAN 25% 100 ML IV ONE (11:30)
--- NOTE | 2016-10-05 12:33 | PN ---
Date/Time of Note Date/Time of Note DATE: 10/05/16 TIME: 12:24 Assessment/Plan VTE Prophylaxis VTE Prophylaxis Intervention: other (ASA & PLAVIX) Lines/Catheters IV Catheter Type (from Nrsg): PICC Line Central line still needed: No Urinary Cath still in place: Yes Reason Cath still needed: other (indicate) (ICU BED BOUND, INTUBATED, AMS) Assessment/Plan Assessment/Plan 1. YEST AFTER DIALYSIS, ANOTHER CARDIAC ARREST 2. S/P RECENT RCA STENT W/ STEMI / HTN 3. ARF--REINTUBATED/ POOR COUGHS 4. ARF--NEEDING DIALYSIS/ ANEMIA 5. DM --HIGH GLUC 6. PNEUMONITIS W/ UNABLE TO COUGH UP SECRETION/ HIGH WBC ---PER CARDS ---PER PULM ---PER RENAL ---PER ID ---CONT ALL MEDS/ SUPPORTIVE CARES ---CHANGE FLUID TO PLAIN NS ---ANOTHER 25% ABL 100CC IVPB TODAY Subjective 24 Hr Interval Summary Free Text/Dictation RE-INTUBATED, SEDATED Exam/Review of Systems Vital Signs Vitals Vital Signs Date Time Temp Pulse Resp B/P Pulse Ox O2 Delivery O2 Flow Rate FiO2 10/05/16 11:22 76 16 100 35 10/05/16 11:00 107/48 Mechanical Ventilator 10/05/16 08:00 98.2 10/03/16 12:00 12.0 Intake and Output 10/04/16 10/04/16 10/05/16 15:00 23:00 07:00 Intake Total 617.109 ml 720.00 ml 698.433 ml Output Total 85 ml 100 ml 70 ml Balance 532.109 ml 620.00 ml 628.433 ml Exam OBESE+ GLOBAL LYMPHATIC EDEMA+ DEC BS BIBASILAR+ RR DAIST M+ SLIGHT TOES C/ SOME GANG+ Results Result Diagram: 10/05/16 0500 10/05/16 0500 Results 24 hrs Laboratory Tests Test 10/04/16 14:13 10/04/16 18:25 10/04/16 21:08 10/05/16 01:15 Bedside Glucose 114 189 202 237 H Test 10/05/16 04:26 10/05/16 05:00 10/05/16 07:00 10/05/16 08:17 Bedside Glucose 234 H 270 H White Blood Count 24.5 H Red Blood Count 3.03 L Hemoglobin 8.5 L Hematocrit 27.5 L Mean Corpuscular Volume 90.8 Mean Corpuscular Hemoglobin 28.1 L Mean Corpuscular Hemoglobin Concent 30.9 L Red Cell Distribution Width 21.0 H Platelet Count 166 # Mean Platelet Volume 11.5 H Neutrophils % 85.2 H Lymphocytes % 6.7 L Monocytes % 6.6 Eosinophils % 0.2 Basophils % 0.1 Nucleated Red Blood Cells % 2.3 H Neutrophils # 20.9 H Lymphocytes # 1.7 Monocytes # 1.6 H Eosinophils # 0.1 Basophils # 0.0 Nucleated Red Blood Cells # 0.6 H Sodium Level 138 Potassium Level 3.8 Chloride Level 102 Carbon Dioxide Level 22 Anion Gap 18 H Blood Urea Nitrogen 79 H Creatinine 4.51 H Glucose Level 229 #H Calcium Level 7.6 L Phosphorus Level 7.1 H Magnesium Level 2.2 Total Bilirubin 0.8 Direct Bilirubin 0.30 #H Indirect Bilirubin 0.5 Aspartate Amino Transf (AST/SGOT) 221 H Alanine Aminotransferase (ALT/SGPT) 314 H Alkaline Phosphatase 351 H Total Protein 5.5 L Albumin 2.3 L Globulin 3.20 Albumin/Globulin Ratio 0.71 Blood Gas Specimen Source Blood arterial Arterial Blood Date Drawn 10/05/2016 8:40:25 AM Arterial Blood pH (Temp corrected) 7.394 Arterial Blood pCO2 (Temp correct) 37.7 Arterial Blood pO2 (Temp corrected) 42.0 *L Arterial Blood HCO3 22.5 Arterial Blood Base Excess -2.1 Arterial Blood Oxygen Saturation 73.9 L Raz Test ACCEPTAB Arterial Blood Gas Puncture Site Right Radial Arterial Blood Carboxyhemoglobin 0.3 Arterial Blood Methemoglobin 0.6 Blood Gas A-a O2 Differential 163.7 H Oxyhemoglobin Percent 73.2 L Total Hemoglobin 9.5 L Blood Gas Temperature 37.0 Blood Gas Respiration Rate 16.0 Blood Gas Actual Respiration Rate 17 Blood Gas Modality VENT - AC FiO2 35.0 Blood Gas Tidal Volume 500.0 Blood Gas Low PEEP Setting 5.0 Blood Gas Critical Value Read Back Marva LOPEZ RN Blood Gas Notified Whom Shira FLANAGAN Blood Gas Notified Time 10/05/2016 8:52:14 AM Test 10/05/16 09:14 Blood Gas Specimen Source Blood arterial Arterial Blood Date Drawn 10/05/2016 9:06:36 AM Arterial Blood pH (Temp corrected) 7.413 Arterial Blood pCO2 (Temp correct) 34.7 L Arterial Blood pO2 (Temp corrected) 85.9 Arterial Blood HCO3 21.7 L Arterial Blood Base Excess -2.5 Arterial Blood Oxygen Saturation 95.2 Raz Test ACCEPTAB Arterial Blood Gas Puncture Site Left Radial Arterial Blood Carboxyhemoglobin 0.3 Arterial Blood Methemoglobin 0.4 Blood Gas A-a O2 Differential 123.3 H Oxyhemoglobin Percent 94.5 Total Hemoglobin 9.1 L Blood Gas Temperature 37.0 Blood Gas Respiration Rate 16.0 Blood Gas Actual Respiration Rate 17 Blood Gas Modality VENT - AC FiO2 35.0 Blood Gas Tidal Volume 500.0 Blood Gas Low PEEP Setting 5.0 Blood Gas Notified Whom TM Blood Gas Notified Time 10/05/2016 9:18:20 AM Medications Medications Current Medications Miscellaneous Information 1 ea NOTE XX ; Start 09/20/16 at 22:00 Glucose (Glutose) 15 gm Q15M PRN PO DECREASED GLUCOSE; Start 09/20/16 at 22:00 Glucose (Glutose) 22.5 gm Q15M PRN PO DECREASED GLUCOSE; Start 09/20/16 at 22: 00 Glucagon (Glucagen) 1 mg Q15M PRN IM DECREASED GLUCOSE; Start 09/20/16 at 22:00 Glucose (Glutose) 15 gm Q15M PRN BUCCAL DECREASED GLUCOSE; Start 09/20/16 at 22 :00 Acetaminophen (Tylenol Liquid) 650 mg Q4H PRN NGT PAIN AND OR ELEVATED TEMP Last administered on 09/27/16 05:14; Admin Dose 650 MG; Start 09/21/16 at 02:00 Eye Lubricant (Artificial Tears Oph) 2 drop QID BOTH EYES Last administered on 10/05/16 08:21; Admin Dose 2 DROP; Start 09/21/16 at 09:00 Dextrose (D50w Syringe) 25 ml Q15M PRN IV Till BS 80 mg/dL or above x2; Start 09/21/16 at 08:00 Dextrose (D50w Syringe) 50 ml Q15M PRN IV Till BS 80 mg/dL or above x2; Start 09/21/16 at 08:00 Atorvastatin Calcium (Lipitor) 80 mg HS NGT Last administered on 10/04/16 21: 07; Admin Dose 80 MG; Start 09/22/16 at 21:00 Insulin Aspart (Novolog Insulin Pen) NOVOLOG *MILD* ALGORI... Q4 SC Last administered on 10/05/16 08:22; Admin Dose 4 UNIT; Start 09/25/16 at 13:00 Pantoprazole (Protonix Iv) 40 mg AM IV Last administered on 10/05/16 08:39; Admin Dose 40 MG; Start 09/26/16 at 09:00 Epoetin Raj (Epogen (Esrd)) 10,000 units TuThSa@17 SC Last administered on 20:34; Admin Dose 10,000 UNITS; Start 09/26/16 at 17:00 IV Flush (NS 10 ml) 10 ml PRN PRN IV IV PROTOCOL; Start 09/26/16 at 17:30 Aspirin (Aspirin) 81 mg DAILY NGT Last administered on 10/05/16 08:39; Admin Dose 81 MG; Start 09/27/16 at 09:00 Clopidogrel Bisulfate 75 mg 75 mg DAILY NGT Last administered on 10/05/16 08:39 ; Admin Dose 75 MG; Start 09/27/16 at 09:00 Piperacillin Sod/ Tazobactam Sod (Zosyn 2.25gm/ 50ml (Pmx)) 50 ml @ 100 mls/hr Q8 IVPB Last administered on 10/05/16 05:04; Admin Dose 100 MLS/HR; Start 09/28 at 14:00 Morphine Sulfate (morphine) 2 mg Q4H PRN IV PAIN Last administered on 10/05/16 08:38; Admin Dose 2 MG; Start 09/28/16 at 16:00 Insulin Glargine (Lantus) 40 unit DAILY@08 SC Last administered on 10/05/16 08: 20; Admin Dose 40 UNIT; Start 10/02/16 at 08:00 Sodium Biphosphate/ Sodium Phosphate 133 ml 133 ml DAILY PRN MA CONSTIPATION; Start 10/01/16 at 17:00 Norepinephrine/ Dextrose (Levophed/D5W) 500 ml @ 1.87 mls/hr TITRATE IV ; Start 10/04/16 at 07:00 Fluconazole 100 mg 100 mg DAILY GTB Last administered on 10/05/16 08:39; Admin Dose 100 MG; Start 10/05/16 at 09:00 Albumin Human (Albumin Human 25%) 100 ml @ 100 mls/hr ONCE ONCE IV Last administered on 10/05/16t 11:28; Admin Dose 100 MLS/HR; Start 10/05/16 at 11:30; Stop 10/05/16 at 12:29 SHAMA LOPEZ MD Oct 05, 2016 12:33
--- NOTE | 2016-10-05 14:24 | PN ---
DATE: 10/05/2016 SUBJECTIVE: Patient is lying comfortably in bed. She is intubated and sedated, no fevers. VITAL SIGNS: Temperature 98.5, pulse 77, respirations 14, blood pressure 116/49, saturation 99 on 3 5 FIO2. LABORATORY DATA: WBC 24.5, H and H 8.5 and 27.5, platelets 166, neutrophils 85.2. INDWELLINGS: Endotracheal tube, orogastric tube, right femoral Maninder catheter, Rivas and PICC lisa e in her left upper extremity placed on 09/26/2016. DIAGNOSTICS: Chest x-ray revealed worse appearance of the right lung base and large right pleural e ffusion. ANTIMICROBIALS: Patient is on: 1. Fluconazole. 2. Zosyn. PHYSICAL EXAMINATION: GENERAL: This is a morbidly obese elderly woman who is in no distress. HEENT: Atraumatic, normocephalic. Sclerae nonicteric. Buccal mucosa dry. NECK: Supple. Trachea midline. CHEST: Rise is symmetrical. Breath sounds diminished. HEART: S1, S2. ABDOMEN: Soft, bowel sounds present. EXTREMITIES: Mottled with cyanotic toes. ASSESSMENT: 1. Sepsis. 2. Acute respiratory failure. 3. Erica albicans urinary tract infection. 4. Pneumonia with large pleural effusion. 5. Acute on chronic kidney disease. 6. Status post cardiopulmonary arrest. 7. Diabetes. 8. Morbid obesity. PLAN: The patient remains hemodynamically stable. White blood cell count still elevated but tracin g down. She was started yesterday on Diflucan. We will continue her on current regimen. Dictated By: ROSALINA SIMS EMERGENCY RESPONSE COORDINATOR for NOEMI LRAA/JERROD Conf#: [id number] DID#: [id number]
--- NOTE | 2016-10-05 14:44 | CONS ---
Date/Time of Note Date/Time of Note DATE: 10/05/16 TIME: 14:41 Consult Date/Type/Reason Admit Date/Time Sep 20, 2016 at 19:21 Initial Consult Date 09/23/16 Type of Consultation: Pulmonary/critical care Ordering Provider: ZANDRA ROBISON MD, [facility] Subjective Awake and responsive on the vent. Objective Vital Signs Date Time Temp Pulse Resp B/P Pulse Ox O2 Delivery O2 Flow Rate FiO2 10/05/16 14:00 91 16 94/76 95 Mechanical Ventilator 10/05/16 12:00 98.5 10/05/16 11:22 35 10/03/16 12:00 12.0 Intake and Output 10/04/16 10/04/16 10/05/16 15:00 23:00 07:00 Intake Total 617.109 ml 720.00 ml 698.433 ml Output Total 85 ml 100 ml 70 ml Balance 532.109 ml 620.00 ml 628.433 ml Exam HEENT: Neck supple; no JVD; no LAD CVS: RRR, S1 and S2 CHEST: Clear with decreased breath sounds right ABD: Soft, NT, + BS EXT: No c/c; + edema Results/Medications Result Diagram: 10/05/16 0500 10/05/16 0500 Results 24 hrs Laboratory Tests Test 10/04/16 18:25 10/04/16 21:08 10/05/16 01:15 10/05/16 04:26 Bedside Glucose 189 202 237 H 234 H Test 10/05/16 05:00 10/05/16 07:00 10/05/16 08:17 10/05/16 09:14 White Blood Count 24.5 H Red Blood Count 3.03 L Hemoglobin 8.5 L Hematocrit 27.5 L Mean Corpuscular Volume 90.8 Mean Corpuscular Hemoglobin 28.1 L Mean Corpuscular Hemoglobin Concent 30.9 L Red Cell Distribution Width 21.0 H Platelet Count 166 # Mean Platelet Volume 11.5 H Neutrophils % 85.2 H Lymphocytes % 6.7 L Monocytes % 6.6 Eosinophils % 0.2 Basophils % 0.1 Nucleated Red Blood Cells % 2.3 H Neutrophils # 20.9 H Lymphocytes # 1.7 Monocytes # 1.6 H Eosinophils # 0.1 Basophils # 0.0 Nucleated Red Blood Cells # 0.6 H Sodium Level 138 Potassium Level 3.8 Chloride Level 102 Carbon Dioxide Level 22 Anion Gap 18 H Blood Urea Nitrogen 79 H Creatinine 4.51 H Glucose Level 229 #H Calcium Level 7.6 L Phosphorus Level 7.1 H Magnesium Level 2.2 Total Bilirubin 0.8 Direct Bilirubin 0.30 #H Indirect Bilirubin 0.5 Aspartate Amino Transf (AST/SGOT) 221 H Alanine Aminotransferase (ALT/SGPT) 314 H Alkaline Phosphatase 351 H Total Protein 5.5 L Albumin 2.3 L Globulin 3.20 Albumin/Globulin Ratio 0.71 Blood Gas Specimen Source Blood arterial Blood arterial Arterial Blood Date Drawn 10/05/2016 8:40:25 AM 10/05/2016 9:06:36 AM Arterial Blood pH (Temp corrected) 7.394 7.413 Arterial Blood pCO2 (Temp correct) 37.7 34.7 L Arterial Blood pO2 (Temp corrected) 42.0 *L 85.9 Arterial Blood HCO3 22.5 21.7 L Arterial Blood Base Excess -2.1 -2.5 Arterial Blood Oxygen Saturation 73.9 L 95.2 Raz Test ACCEPTAB ACCEPTAB Arterial Blood Gas Puncture Site Right Radial Left Radial Arterial Blood Carboxyhemoglobin 0.3 0.3 Arterial Blood Methemoglobin 0.6 0.4 Blood Gas A-a O2 Differential 163.7 H 123.3 H Oxyhemoglobin Percent 73.2 L 94.5 Total Hemoglobin 9.5 L 9.1 L Blood Gas Temperature 37.0 37.0 Blood Gas Respiration Rate 16.0 16.0 Blood Gas Actual Respiration Rate 17 17 Blood Gas Modality VENT - AC VENT - AC FiO2 35.0 35.0 Blood Gas Tidal Volume 500.0 500.0 Blood Gas Low PEEP Setting 5.0 5.0 Blood Gas Critical Value Read Back Marva LOPEZ RN Blood Gas Notified Whom Shira MURILLO Blood Gas Notified Time 10/05/2016 8:52:14 AM 10/05/2016 9:18:20 AM Bedside Glucose 270 H Test 10/05/16 12:37 Bedside Glucose 358 H Medications Current Medications Miscellaneous Information 1 ea NOTE XX ; Start 09/20/16 at 22:00 Glucose (Glutose) 15 gm Q15M PRN PO DECREASED GLUCOSE; Start 09/20/16 at 22:00 Glucose (Glutose) 22.5 gm Q15M PRN PO DECREASED GLUCOSE; Start 09/20/16 at 22: 00 Glucagon (Glucagen) 1 mg Q15M PRN IM DECREASED GLUCOSE; Start 09/20/16 at 22:00 Glucose (Glutose) 15 gm Q15M PRN BUCCAL DECREASED GLUCOSE; Start 09/20/16 at 22 :00 Acetaminophen (Tylenol Liquid) 650 mg Q4H PRN NGT PAIN AND OR ELEVATED TEMP Last administered on 09/27/16 05:14; Admin Dose 650 MG; Start 09/21/16 at 02:00 Eye Lubricant (Artificial Tears Oph) 2 drop QID BOTH EYES Last administered on 10/05/16 12:40; Admin Dose 2 DROP; Start 09/21/16 at 09:00 Dextrose (D50w Syringe) 25 ml Q15M PRN IV Till BS 80 mg/dL or above x2; Start 09/21/16 at 08:00 Dextrose (D50w Syringe) 50 ml Q15M PRN IV Till BS 80 mg/dL or above x2; Start 09/21/16 at 08:00 Atorvastatin Calcium (Lipitor) 80 mg HS NGT Last administered on 10/04/16 21: 07; Admin Dose 80 MG; Start 09/22/16 at 21:00 Insulin Aspart (Novolog Insulin Pen) NOVOLOG *MILD* ALGORI... Q4 SC Last administered on 10/05/16 12:39; Admin Dose 7 UNIT; Start 09/25/16 at 13:00 Pantoprazole (Protonix Iv) 40 mg AM IV Last administered on 10/05/16 08:39; Admin Dose 40 MG; Start 09/26/16 at 09:00 Epoetin Raj (Epogen (Esrd)) 10,000 units TuThSa@17 SC Last administered on 20:34; Admin Dose 10,000 UNITS; Start 09/26/16 at 17:00 IV Flush (NS 10 ml) 10 ml PRN PRN IV IV PROTOCOL; Start 09/26/16 at 17:30 Aspirin (Aspirin) 81 mg DAILY NGT Last administered on 10/05/16 08:39; Admin Dose 81 MG; Start 09/27/16 at 09:00 Clopidogrel Bisulfate 75 mg 75 mg DAILY NGT Last administered on 10/05/16 08:39 ; Admin Dose 75 MG; Start 09/27/16 at 09:00 Piperacillin Sod/ Tazobactam Sod (Zosyn 2.25gm/ 50ml (Pmx)) 50 ml @ 100 mls/hr Q8 IVPB Last administered on 10/05/16 13:05; Admin Dose 100 MLS/HR; Start 09/28 at 14:00 Morphine Sulfate (morphine) 2 mg Q4H PRN IV PAIN Last administered on 10/05/16 13:08; Admin Dose 2 MG; Start 09/28/16 at 16:00 Sodium Biphosphate/ Sodium Phosphate 133 ml 133 ml DAILY PRN [place] CONSTIPATION; Start 10/01/16 at 17:00 Norepinephrine/ Dextrose (Levophed/D5W) 500 ml @ 1.87 mls/hr TITRATE IV ; Start 10/04/16 at 07:00 Fluconazole (Diflucan) 100 mg DAILY GTB Last administered on 10/05/16 08:39; Admin Dose 100 MG; Start 10/05/16 at 09:00 Insulin Glargine (Lantus) 50 unit DAILY@08 SC ; Start 10/06/16 at 08:00 Assessment/Plan Additional Assessment/Plan IMP: 1. Status post cardiac arrest. ST elevation LA stent placement to RCA 2. Hypercapnic resp failure 3. Acute renal failure 4. Status post Shock liver. 5. Anemia RECS: 1. Continue mechanical ventilation with efforts to reinitiate weaning 2. HD 3. Broad-spectrum antibiotic coverage. 4. CPAP 5 PS 10 in am 5. Am CXR; ABG on CPAP 35 min cc time LOGAN BURKETT MD Oct 05, 2016 14:44
[2016-10-05] MEDS: EPOETIN 10000 UNITS/1 ML INJ (ESRD) SC SCH (17:12)
[2016-10-05] MEDS ORDERED: DEXTROSE 50% 50 ML SYRINGE IV PRN ×2 (17:30)
[2016-10-05] MEDS: ACCU-CHEK XX SCH ×7 (17:32→23:49)
[2016-10-05] MEDS: INSULIN REGULAR, HUMAN 100 UNIT in SOD CHLORIDE 0.9% 99 ML IV SCH ×4 (17:42→22:09)
[2016-10-05] MEDS: ATORVASTATIN 80 MG TAB NGT SCH (20:49)
[2016-10-06] VITALS (41 sets, daily range): BP systolic 84–123; BP diastolic 45–68; PULSE 65–90; RESP 16–23
[2016-10-06] MEDS: ACCU-CHEK XX SCH ×24 (00:10→23:05)
[2016-10-06] MEDS: morphine 2 MG INJ IV PRN ×4 (04:49→23:16)
[2016-10-06 05:23] LABS: ADD SCAN DIFF NO
[2016-10-06 05:38] LABS: BASOPHILS % 0.1 % (0.0-2.0); EOSINOPHILS # 0.1 10^3/ul (0.0-0.5); EOSINOPHILS % 0.5 % (0.0-7.0); HEMOGLOBIN 7.4 g/dl (12.0-16.0); LYMPHOCYTES # 1.1 10^3/ul (0.8-2.9); LYMPHOCYTES % 4.8 % (15.0-51.0); MEAN CORPUSCULAR HEMOGLOBIN 27.5 pg (29.0-33.0); MEAN CORPUSCULAR HGB CONC 29.6 g/dl (32.0-37.0); MEAN CORPUSCULAR VOLUME 92.9 fl (82.0-101.0); MEAN PLATELET VOLUME 11.5 fl (7.4-10.4); MONOCYTE # 1.4 10^3/ul (0.3-0.9); MONOCYTES % 6.1 % (0.0-11.0); NEUTROPHIL # 19.9 10^3/ul (1.6-7.5); NEUTROPHILS % 87.7 % (39.0-77.0); NUCLEATED RED BLOOD CELLS # 0.4 10^3/ul (0.0-0.0); NUCLEATED RED BLOOD CELLS% 1.9 /100WBC (0.0-0.0); PLATELET COUNT 162 10^3/UL (140-415); RED BLOOD COUNT 2.69 10^6/ul (4.20-5.40); RED CELL DISTRIBUTION WIDTH 21.8 % (11.5-14.5); WHITE BLOOD COUNT 22.7 10^3/ul (4.8-10.8)
[2016-10-06 05:50] LABS: POTASSIUM 3.3 mmol/L (3.5-5.1)
[2016-10-06 05:54] LABS: CALCIUM 7.9 mg/dl (8.4-10.2); PHOSPHORUS 6.4 mg/dl (2.5-4.9)
[2016-10-06 06:16] LABS: CREATININE 4.74 mg/dl (0.44-1.00)
[2016-10-06] MEDS: PIPER-TAZO 2.25 GM (PMX) 50 ML IVPB SCH ×3 (06:38→22:19)
[2016-10-06] MEDS: INSULIN GLARGINE [LANtus] 3 ML PEN SC SCH (07:56)
[2016-10-06] MEDS ORDERED: INSULIN GLARGINE [LANtus] 3 ML PEN SC SCH (08:00)
[2016-10-06] MEDS: FLUCONAZOLE 100 MG TAB GTB SCH (08:01)
[2016-10-06] MEDS: ASPIRIN 81 MG TAB NGT SCH (08:01)
[2016-10-06] MEDS: PANTOPRAZOLE 40 MG INJ IV SCH (08:01)
[2016-10-06] MEDS: ARTIFICIAL TEARS 15 ML OPH BOTH EYES SCH ×4 (08:02→20:57)
[2016-10-06] MEDS: CLOPIDOGREL 75 MG TAB NGT SCH (08:02)
[2016-10-06] MEDS: INSULIN REGULAR, HUMAN 100 UNIT in SOD CHLORIDE 0.9% 99 ML IV SCH ×2 (09:18)
--- NOTE | 2016-10-06 10:40 | CONS ---
Date/Time of Note Date/Time of Note DATE: 10/06/16 TIME: 10:37 Assessment/Plan Assessment/Plan Additional Assessment/Plan 1. Increasing azotemia and vol overload, will HD today 2. Pneumonia 3. Respir failure 4. Anemia, stable Consultation Date/Type/Reason Admit Date/Time Sep 20, 2016 at 19:21 Initial Consult Date 09/23/16 Type of Consultation: Pulmonary/critical care Referring Provider: ZANDRA ROBISON MD, [facility] 24 HR Interval Summary Subjective hx not possible: other (intubated.) Exam/Review of Systems Vital Signs Vitals Vital Signs Date Time Temp Pulse Resp B/P Pulse Ox O2 Delivery O2 Flow Rate FiO2 10/06/16 10:00 71 16 98/53 100 Mechanical Ventilator 10/06/16 07:43 35 10/06/16 07:29 98.2 10/03/16 12:00 12.0 Intake and Output 10/05/16 10/05/16 10/06/16 15:00 23:00 07:00 Intake Total 670 ml 556 ml 506.0 ml Output Total 135 ml 255 ml 280 ml Balance 535 ml 301 ml 226.0 ml Exam Neck: No jvd Respiratory: diminished breath sounds Cardiovascular: regular rate and rhythm Gastrointestinal: soft Extremities: edema (3+ sacral, 1+ extrem) Results Result Diagram: 10/06/16 0500 10/06/16 0500 Results 24 hrs Laboratory Tests Test 10/05/16 12:37 10/05/16 16:46 10/05/16 16:49 10/05/16 17:00 Bedside Glucose 358 H 431 *H 424 *H Glucose Level 416 #*H Test 10/05/16 17:34 10/05/16 18:07 10/05/16 18:54 10/05/16 20:02 Bedside Glucose 449 *H 448 *H 406 *H 363 H Test 10/05/16 20:51 10/05/16 22:05 10/05/16 22:48 10/06/16 00:09 Bedside Glucose 323 H 277 H 271 H 210 Test 10/06/16 01:12 10/06/16 02:02 10/06/16 03:00 10/06/16 04:10 Bedside Glucose 183 151 144 133 Test 10/06/16 04:54 10/06/16 05:00 10/06/16 06:42 10/06/16 07:52 Bedside Glucose 109 104 117 White Blood Count 22.7 H Red Blood Count 2.69 L Hemoglobin 7.4 L Hematocrit 25.0 L Mean Corpuscular Volume 92.9 Mean Corpuscular Hemoglobin 27.5 L Mean Corpuscular Hemoglobin Concent 29.6 L Red Cell Distribution Width 21.8 H Platelet Count 162 Mean Platelet Volume 11.5 H Neutrophils % 87.7 H Lymphocytes % 4.8 L Monocytes % 6.1 Eosinophils % 0.5 Basophils % 0.1 Nucleated Red Blood Cells % 1.9 H Neutrophils # 19.9 H Lymphocytes # 1.1 Monocytes # 1.4 H Eosinophils # 0.1 Basophils # 0.0 Nucleated Red Blood Cells # 0.4 H Sodium Level 141 Potassium Level 3.3 L Chloride Level 106 Carbon Dioxide Level 24 Anion Gap 14 Blood Urea Nitrogen 97 H Creatinine 4.74 H Glucose Level 111 # Calcium Level 7.9 L Phosphorus Level 6.4 H Test 10/06/16 09:04 10/06/16 10:02 Bedside Glucose 116 102 Medications Medications Current Medications Miscellaneous Information 1 ea NOTE XX ; Start 09/20/16 at 22:00 Glucose (Glutose) 15 gm Q15M PRN PO DECREASED GLUCOSE; Start 09/20/16 at 22:00 Glucose (Glutose) 22.5 gm Q15M PRN PO DECREASED GLUCOSE; Start 09/20/16 at 22: 00 Glucagon (Glucagen) 1 mg Q15M PRN IM DECREASED GLUCOSE; Start 09/20/16 at 22:00 Glucose (Glutose) 15 gm Q15M PRN BUCCAL DECREASED GLUCOSE; Start 09/20/16 at 22 :00 Acetaminophen (Tylenol Liquid) 650 mg Q4H PRN NGT PAIN AND OR ELEVATED TEMP Last administered on 09/27/16 05:14; Admin Dose 650 MG; Start 09/21/16 at 02:00 Eye Lubricant (Artificial Tears Oph) 2 drop QID BOTH EYES Last administered on 10/06/16 08:02; Admin Dose 2 DROP; Start 09/21/16 at 09:00 Dextrose (D50w Syringe) 25 ml Q15M PRN IV Till BS 80 mg/dL or above x2; Start 09/21/16 at 08:00 Dextrose (D50w Syringe) 50 ml Q15M PRN IV Till BS 80 mg/dL or above x2; Start 09/21/16 at 08:00 Atorvastatin Calcium (Lipitor) 80 mg HS NGT Last administered on 10/05/16 20:49 ; Admin Dose 80 MG; Start 09/22/16 at 21:00 Insulin Aspart (Novolog Insulin Pen) NOVOLOG *MILD* ALGORI... Q4 SC Last administered on 10/05/16 16:53; Admin Dose 7 UNIT; Start 09/25/16 at 13:00; Status Future Hold Pantoprazole (Protonix Iv) 40 mg AM IV Last administered on 10/06/16 08:01; Admin Dose 40 MG; Start 09/26/16 at 09:00 Epoetin Raj (Epogen (Esrd)) 10,000 units TuThSa@17 SC Last administered on 10/05 17:12; Admin Dose 10,000 UNITS; Start 09/26/16 at 17:00 IV Flush (NS 10 ml) 10 ml PRN PRN IV IV PROTOCOL; Start 09/26/16 at 17:30 Aspirin (Aspirin) 81 mg DAILY NGT Last administered on 10/06/16 08:01; Admin Dose 81 MG; Start 09/27/16 at 09:00 Clopidogrel Bisulfate 75 mg 75 mg DAILY NGT Last administered on 10/06/16 08:02 ; Admin Dose 75 MG; Start 09/27/16 at 09:00 Piperacillin Sod/ Tazobactam Sod (Zosyn 2.25gm/ 50ml (Pmx)) 50 ml @ 100 mls/hr Q8 IVPB Last administered on 10/06/16 06:38; Admin Dose 100 MLS/HR; Start 09/28 at 14:00 Morphine Sulfate (morphine) 2 mg Q4H PRN IV PAIN Last administered on 10/06/16 07:45; Admin Dose 2 MG; Start 09/28/16 at 16:00 Sodium Biphosphate/ Sodium Phosphate 133 ml 133 ml DAILY PRN [place] CONSTIPATION; Start 10/01/16 at 17:00 Norepinephrine/ Dextrose (Levophed/D5W) 500 ml @ 1.87 mls/hr TITRATE IV ; Start 10/04/16 at 07:00 Fluconazole (Diflucan) 100 mg DAILY GTB Last administered on 4/2/17at 08:01; Admin Dose 100 MG; Start 10/05/16 at 09:00 Dextrose (D50w Syringe) 25 ml Q15M PRN IV Till BS 80 mg/dL or above x2; Start 10/05/16 at 17:30 Dextrose (D50w Syringe) 50 ml Q15M PRN IV Till BS 80 mg/dL or above x2; Start 10/05/16 at 17:30 Insulin Glargine (Lantus) 50 unit DAILY@08 SC Last administered on 10/06/16 07: 56; Admin Dose 50 UNIT; Start 10/06/16 at 08:00 Diagnostic Test (Pha) (Accu-Chek) 1 ea Q1H XX Last administered on 10/06/16 10: 02; Admin Dose 1 EA; Start 10/05/16 at 19:00 FAZAL LAFLEUR MD Oct 06, 2016 10:40
--- NOTE | 2016-10-06 13:45 | CONS ---
Date/Time of Note Date/Time of Note DATE: 10/06/16 TIME: 13:37 Consult Date/Type/Reason Admit Date/Time Sep 20, 2016 at 19:21 Initial Consult Date 09/23/16 Type of Consultation: Pulmonary/critical care Ordering Provider: ZANDRA ROBISON MD, [facility] [place] Subjective Failed weaning trail earlier today. Objective Vital Signs Date Time Temp Pulse Resp B/P Pulse Ox O2 Delivery O2 Flow Rate FiO2 10/06/16 12:00 75 10/06/16 11:47 98.3 10/06/16 11:00 17 99/58 98 Mechanical Ventilator 10/06/16 07:43 35 10/03/16 12:00 12.0 Intake and Output 10/05/16 10/05/16 10/06/16 15:00 23:00 07:00 Intake Total 670 ml 556 ml 506.0 ml Output Total 135 ml 255 ml 280 ml Balance 535 ml 301 ml 226.0 ml Exam HEENT: Neck supple; no JVD; no LAD; + ET tube in place CVS: RRR, S1 and S2 CHEST: Clear with decreased breath sounds right ABD: Soft, NT, + BS EXT: No c/c; + edema Results/Medications Result Diagram: 10/06/16 0500 10/06/16 0500 Results 24 hrs Laboratory Tests Test 10/05/16 16:46 10/05/16 16:49 10/05/16 17:00 10/05/16 17:34 Bedside Glucose 431 *H 424 *H 449 *H Glucose Level 416 #*H Test 10/05/16 18:07 10/05/16 18:54 10/05/16 20:02 10/05/16 20:51 Bedside Glucose 448 *H 406 *H 363 H 323 H Test 10/05/16 22:05 10/05/16 22:48 10/06/16 00:09 10/06/16 01:12 Bedside Glucose 277 H 271 H 210 183 Test 10/06/16 02:02 10/06/16 03:00 10/06/16 04:10 10/06/16 04:54 Bedside Glucose 151 144 133 109 Test 10/06/16 05:00 10/06/16 06:42 10/06/16 07:52 10/06/16 09:04 White Blood Count 22.7 H Red Blood Count 2.69 L Hemoglobin 7.4 L Hematocrit 25.0 L Mean Corpuscular Volume 92.9 Mean Corpuscular Hemoglobin 27.5 L Mean Corpuscular Hemoglobin Concent 29.6 L Red Cell Distribution Width 21.8 H Platelet Count 162 Mean Platelet Volume 11.5 H Neutrophils % 87.7 H Lymphocytes % 4.8 L Monocytes % 6.1 Eosinophils % 0.5 Basophils % 0.1 Nucleated Red Blood Cells % 1.9 H Neutrophils # 19.9 H Lymphocytes # 1.1 Monocytes # 1.4 H Eosinophils # 0.1 Basophils # 0.0 Nucleated Red Blood Cells # 0.4 H Sodium Level 141 Potassium Level 3.3 L Chloride Level 106 Carbon Dioxide Level 24 Anion Gap 14 Blood Urea Nitrogen 97 H Creatinine 4.74 H Glucose Level 111 # Calcium Level 7.9 L Phosphorus Level 6.4 H Bedside Glucose 104 117 116 Test 10/06/16 10:02 10/06/16 10:56 10/06/16 11:56 10/06/16 12:55 Bedside Glucose 102 117 120 122 Medications Current Medications Miscellaneous Information 1 ea NOTE XX ; Start 09/20/16 at 22:00 Glucose (Glutose) 15 gm Q15M PRN PO DECREASED GLUCOSE; Start 09/20/16 at 22:00 Glucose (Glutose) 22.5 gm Q15M PRN PO DECREASED GLUCOSE; Start 09/20/16 at 22: 00 Glucagon (Glucagen) 1 mg Q15M PRN IM DECREASED GLUCOSE; Start 09/20/16 at 22:00 Glucose (Glutose) 15 gm Q15M PRN BUCCAL DECREASED GLUCOSE; Start 09/20/16 at 22 :00 Acetaminophen (Tylenol Liquid) 650 mg Q4H PRN NGT PAIN AND OR ELEVATED TEMP Last administered on 09/27/16 05:14; Admin Dose 650 MG; Start 09/21/16 at 02:00 Eye Lubricant (Artificial Tears Oph) 2 drop QID BOTH EYES Last administered on 10/06/16 12:04; Admin Dose 2 DROP; Start 09/21/16 at 09:00 Dextrose (D50w Syringe) 25 ml Q15M PRN IV Till BS 80 mg/dL or above x2; Start 09/21/16 at 08:00 Dextrose (D50w Syringe) 50 ml Q15M PRN IV Till BS 80 mg/dL or above x2; Start 09/21/16 at 08:00 Atorvastatin Calcium (Lipitor) 80 mg HS NGT Last administered on 10/05/16 20:49 ; Admin Dose 80 MG; Start 09/22/16 at 21:00 Insulin Aspart (Novolog Insulin Pen) NOVOLOG *MILD* ALGORI... Q4 SC Last administered on 10/05/16 16:53; Admin Dose 7 UNIT; Start 09/25/16 at 13:00; Status Future Hold Pantoprazole (Protonix Iv) 40 mg AM IV Last administered on 10/06/16 08:01; Admin Dose 40 MG; Start 09/26/16 at 09:00 Epoetin Raj (Epogen (Esrd)) 10,000 units TuThSa@17 SC Last administered on 10/05 17:12; Admin Dose 10,000 UNITS; Start 09/26/16 at 17:00 IV Flush (NS 10 ml) 10 ml PRN PRN IV IV PROTOCOL; Start 09/26/16 at 17:30 Aspirin (Aspirin) 81 mg DAILY NGT Last administered on 10/06/16 08:01; Admin Dose 81 MG; Start 09/27/16 at 09:00 Clopidogrel Bisulfate 75 mg 75 mg DAILY NGT Last administered on 10/06/16 08:02 ; Admin Dose 75 MG; Start 09/27/16 at 09:00 Piperacillin Sod/ Tazobactam Sod (Zosyn 2.25gm/ 50ml (Pmx)) 50 ml @ 100 mls/hr Q8 IVPB Last administered on 10/06/16 13:16; Admin Dose 100 MLS/HR; Start 09/28 at 14:00 Morphine Sulfate (morphine) 2 mg Q4H PRN IV PAIN Last administered on 10/06/16 07:45; Admin Dose 2 MG; Start 09/28/16 at 16:00 Sodium Biphosphate/ Sodium Phosphate 133 ml 133 ml DAILY PRN [place] CONSTIPATION; Start 10/01/16 at 17:00 Norepinephrine/ Dextrose (Levophed/D5W) 500 ml @ 1.87 mls/hr TITRATE IV ; Start 10/04/16 at 07:00 Fluconazole (Diflucan) 100 mg DAILY GTB Last administered on 10/06/16 08:01; Admin Dose 100 MG; Start 10/05/16 at 09:00 Dextrose (D50w Syringe) 25 ml Q15M PRN IV Till BS 80 mg/dL or above x2; Start 10/05/16 at 17:30 Dextrose (D50w Syringe) 50 ml Q15M PRN IV Till BS 80 mg/dL or above x2; Start 10/05/16 at 17:30 Insulin Glargine (Lantus) 50 unit DAILY@08 SC Last administered on 10/06/16 07: 56; Admin Dose 50 UNIT; Start 10/06/16 at 08:00 Diagnostic Test (Pha) (Accu-Chek) 1 ea Q1H XX Last administered on 10/06/16 12: 57; Admin Dose 1 EA; Start 10/05/16 at 19:00 Assessment/Plan Additional Assessment/Plan IMP: 1. Status post cardiac arrest. ST elevation FL stent placement to RCA 2. Hypercapnic resp failure 3. Acute renal failure 4. Status post shock liver. 5. Anemia RECS: 1. Continue mechanical ventilation with efforts to weaning 2. HD/UF 3. Broad-spectrum antibiotic coverage. 4. Am labs/CXR 35 min cc time LOGAN BURKETT MD Oct 06, 2016 13:45
--- NOTE | 2016-10-06 14:24 | RADRPT ---
PROCEDURE: XR Chest. CLINICAL INDICATION: Shortness of breath TECHNIQUE: Single view of the chest COMPARISON: Chest radiograph October 05, 2016 FINDINGS: The tip of the endotracheal tube is 2.6 cm above the mary. Enteric tube courses below the diaphra gm. There is a left-sided PICC with its tip at the cavoatrial junction. Cardiac silhouette is mildly enlarged. There is a [id number] right pleural effusion likely associated atelectasis. There is no pneumothorax. There is no acute osseous abnormality. IMPRESSION: 1. Moderate to large right pleural effusion and associated atelectasis, with underlying airspace di sease not excluded. 2. Lines and tubes as above. RPTAT: UU .Cricket Patten MD, MD Date Time Electronically viewed and signed by .Cricket Patten MD, on 10/06/2016 14:24 .K/
--- NOTE | 2016-10-06 15:12 | PN ---
DATE: 10/06/2016 SUBJECTIVE: No acute events. The patient is lying comfortably in bed. She is intubated. Opens eyes and follows commands. No fevers. VITAL SIGNS: Temperature 98.3, pulse 81, respirations 17, blood pressure 99/58 , saturation 98 on FIO2 of 35. WBC 22.7, H and H 7.4 and 25, platelets 162, neutrophils 87.7. INDWELLINGS: Endotracheal tube, orogastric tube, right femoral Maninder catheter , PICC line placed on 09/26/2016. ANTIMICROBIALS: Patient is on: 1. Fluconazole. 2. Zosyn. PHYSICAL EXAMINATION: GENERAL: This is a morbidly obese elderly woman who is lying comfortably in bed. HEENT: Head atraumatic, normocephalic. Sclerae anicteric. Buccal mucosa dry. NECK: Supple. CHEST: Rise symmetrical. Breath sounds diminished to bases. HEART: S1, S2. ABDOMEN: Obese, soft, bowel tones present. EXTREMITIES: With cyanotic toes. ASSESSMENT: 1. Sepsis, improving. 2. Urinary tract infection. 3. Pneumonia with pleural effusion. 4. Acute respiratory failure. 5. Diabetes. 6. Acute on chronic kidney disease, hemodialysis dependent. 7. Status post cardiopulmonary arrest. PLAN: The patient remains stable. White blood cell count trending down. She is more awake today. She is on appropriate antimicrobials, which we are going to continue. Dictated By: ROSALINA SIMS FRONT EDGER for NOEMI LARA/JERROD Conf#: [id number] DID#: [id number] [id number]
[2016-10-06] MEDS: ATORVASTATIN 80 MG TAB NGT SCH (20:57)
[2016-10-07] VITALS (71 sets, daily range): BP systolic 69–120; BP diastolic 38–68; PULSE 69–121; RESP 9–25
[2016-10-07] MEDS: ACCU-CHEK XX SCH ×24 (01:01→23:03)
[2016-10-07 05:04] LABS: AADO2 Arterial 197.3 mmHg (7.0-24.0); Allen Test ACCEPTAB; Arterial Base Excess -0.3 mmol/L (-3.0-3); Arterial COHb 0.3 % (0.0-3.0); Arterial Fraction of Oxyhgb 96.8 % (93.0-99.0); Arterial HCO3 24.6 mmol/L (22.0-26.0); Arterial MetHb 0.4 % (0.0-1.5); MODE VENT - AC
[2016-10-07 05:36] LABS: ADD SCAN DIFF NO
[2016-10-07 05:41] LABS: ABNORMAL IP MESSAGE 1; BASOPHILS % 0.1 % (0.0-2.0); EOSINOPHILS # 0.1 10^3/ul (0.0-0.5); EOSINOPHILS % 0.7 % (0.0-7.0); HEMATOCRIT 24.6 % (37.0-47.0); HEMOGLOBIN 7.3 g/dl (12.0-16.0); LYMPHOCYTES # 1.2 10^3/ul (0.8-2.9); LYMPHOCYTES % 5.6 % (15.0-51.0); MEAN CORPUSCULAR HEMOGLOBIN 28.1 pg (29.0-33.0); MEAN CORPUSCULAR HGB CONC 29.7 g/dl (32.0-37.0); MEAN CORPUSCULAR VOLUME 94.6 fl (82.0-101.0); MEAN PLATELET VOLUME 12.2 fl (7.4-10.4); MONOCYTE # 1.1 10^3/ul (0.3-0.9); MONOCYTES % 5.1 % (0.0-11.0); NEUTROPHIL # 18.1 10^3/ul (1.6-7.5); NEUTROPHILS % 87.7 % (39.0-77.0); NUCLEATED RED BLOOD CELLS # 0.4 10^3/ul (0.0-0.0); NUCLEATED RED BLOOD CELLS% 2.1 /100WBC (0.0-0.0); PLATELET COUNT 124 10^3/UL (140-415); RED CELL DISTRIBUTION WIDTH 22.6 % (11.5-14.5); WHITE BLOOD COUNT 20.6 10^3/ul (4.8-10.8)
[2016-10-07 06:04] LABS: POTASSIUM 3.2 mmol/L (3.5-5.1)
[2016-10-07 06:07] LABS: PHOSPHORUS 5.9 mg/dl (2.5-4.9)
[2016-10-07 06:08] LABS: CALCIUM 7.6 mg/dl (8.4-10.2)
[2016-10-07 06:14] LABS: CREATININE 4.03 mg/dl (0.44-1.00)
[2016-10-07] MEDS: PIPER-TAZO 2.25 GM (PMX) 50 ML IVPB SCH ×3 (06:19→21:11)
--- NOTE | 2016-10-07 08:28 | RADRPT ---
PROCEDURE: XR Chest. CLINICAL INDICATION: Shortness of breath. TECHNIQUE: Single frontal view. COMPARISON: 10/06/2016. FINDINGS: The endotracheal tube, nasogastric tube and left arm PICC line remain in satisfactory position. There is complete opacification of the right hemithorax, unchanged. The left lung is clear. There is no pleural effusion. There is no pneumothorax. IMPRESSION: 1. Complete opacification of the right hemithorax, unchanged. 2. Tubes and lines in satisfactory position. 3. Clear left lung. RPTAT: QQ .Arnaldo Back MD, MD Date Time Electronically viewed and signed by .Arnaldo Back MD, on 10/07/2016 08:28 .R/
[2016-10-07] MEDS ORDERED: POTASSIUM CHLORIDE 20 MEQ POWDER FOR ORAL SOLN GTB ONE (08:30)
--- NOTE | 2016-10-07 08:32 | CONS ---
Date/Time of Note Date/Time of Note DATE: 10/07/16 TIME: 08:25 Assessment/Plan Assessment/Plan Chief Complaint/Hosp Course 1. Acute Renal Failure due to ATN , nonoliguric . She had a hemodialysis treatment yesterday . She is azotemic and has peripheral edema and a pleural effusion . I will order dialysis for today . 2. ALOC , she is improved and responsive 3. liver enzyme elevation due to anoxia , enzymes are decreasing . 4. hypotension , she is now on Levophed 5. hypocalcemia/hypoalbuminemia , her calcium level has increased. 6. anemia , she has not had any recent GI bleeding , will transfuse blood today with dialysis . 7. peripheral vascular disease , with one blue L toe . 8. respiratory failure , ventilator dependent . Problems: Consultation Date/Type/Reason Admit Date/Time Sep 20, 2016 at 19:21 Initial Consult Date 09/23/16 Type of Consultation: Pulmonary/critical care Referring Provider: ZANDRA ROBISON MD, [facility] HR Interval Summary Free Text/Dictation she is awake in the ICU , intubated on a ventilator . Subjective hx not possible: pt non-verbal Exam/Review of Systems Vital Signs Vitals Vital Signs Date Time Temp Pulse Resp B/P Pulse Ox O2 Delivery O2 Flow Rate FiO2 10/07/16 07:00 75 16 98/54 100 Mechanical Ventilator 10/07/16 05:15 50 10/07/16 04:00 97.6 10/03/16 12:00 12.0 Intake and Output 10/06/16 10/06/16 10/07/16 15:00 23:00 07:00 Intake Total 564.5 ml 1021.5 ml 446 ml Output Total 75 ml 1555 ml 35 ml Balance 489.5 ml -533.5 ml 411 ml Exam Constitutional: alert, non-verbal Respiratory: clear to auscultation, diminished breath sounds Cardiovascular: regular rate and rhythm Gastrointestinal: soft Extremities: edema Results Result Diagram: 10/07/16 0500 10/07/16 0500 Results 24 hrs Laboratory Tests Test 10/06/16 09:04 10/06/16 10:02 10/06/16 10:56 10/06/16 11:56 Bedside Glucose 116 102 117 120 Test 10/06/16 12:55 10/06/16 14:09 10/06/16 15:00 10/06/16 15:52 Bedside Glucose 122 122 127 156 Test 10/06/16 16:59 10/06/16 18:57 10/06/16 20:05 10/06/16 21:03 Bedside Glucose 157 198 209 224 H Test 10/06/16 22:03 10/06/16 23:07 10/06/16 23:59 10/07/16 01:00 Bedside Glucose 246 H 229 H 214 200 Test 10/07/16 02:02 10/07/16 03:02 10/07/16 04:02 10/07/16 04:57 Bedside Glucose 175 169 141 140 Test 10/07/16 05:00 10/07/16 06:01 10/07/16 07:03 10/07/16 07:33 White Blood Count 20.6 H Red Blood Count 2.60 L Hemoglobin 7.3 L Hematocrit 24.6 L Mean Corpuscular Volume 94.6 Mean Corpuscular Hemoglobin 28.1 L Mean Corpuscular Hemoglobin Concent 29.7 L Red Cell Distribution Width 22.6 H Platelet Count 124 #L Mean Platelet Volume 12.2 H Neutrophils % 87.7 H Lymphocytes % 5.6 L Monocytes % 5.1 Eosinophils % 0.7 Basophils % 0.1 Nucleated Red Blood Cells % 2.1 H Neutrophils # 18.1 H Lymphocytes # 1.2 Monocytes # 1.1 H Eosinophils # 0.1 Basophils # 0.0 Nucleated Red Blood Cells # 0.4 H Blood Gas Specimen Source Blood arterial Arterial Blood Date Drawn 10/07/2016 4:45:35 AM Arterial Blood pH (Temp corrected) 7.389 Arterial Blood pCO2 (Temp correct) 41.7 Arterial Blood pO2 (Temp corrected) 112.3 H Arterial Blood HCO3 24.6 Arterial Blood Base Excess -0.3 Arterial Blood Oxygen Saturation 97.5 Raz Test ACCEPTAB Arterial Blood Gas Puncture Site Left Radial Arterial Blood Carboxyhemoglobin 0.3 Arterial Blood Methemoglobin 0.4 Blood Gas A-a O2 Differential 197.3 H Oxyhemoglobin Percent 96.8 Total Hemoglobin 8.0 L Blood Gas Temperature 37.0 Blood Gas Respiration Rate 16.0 Blood Gas Actual Respiration Rate 16 Blood Gas Modality VENT - AC FiO2 50.0 Blood Gas Tidal Volume 500.0 Blood Gas Low PEEP Setting 5.0 Blood Gas Notified Whom MG Blood Gas Notified Time 10/07/2016 5:04:14 AM Sodium Level 141 Potassium Level 3.2 L Chloride Level 101 Carbon Dioxide Level 26 Anion Gap 17 H Blood Urea Nitrogen 92 H Creatinine 4.03 H Glucose Level 137 Lactic Acid Level 1.0 Calcium Level 7.6 L Phosphorus Level 5.9 H Bedside Glucose 142 119 126 Medications Medications Current Medications Miscellaneous Information 1 ea NOTE XX ; Start 09/20/16 at 22:00 Glucose (Glutose) 15 gm Q15M PRN PO DECREASED GLUCOSE; Start 09/20/16 at 22:00 Glucose (Glutose) 22.5 gm Q15M PRN PO DECREASED GLUCOSE; Start 09/20/16 at 22: 00 Glucagon (Glucagen) 1 mg Q15M PRN IM DECREASED GLUCOSE; Start 09/20/16 at 22:00 Glucose (Glutose) 15 gm Q15M PRN BUCCAL DECREASED GLUCOSE; Start 09/20/16 at 22 :00 Acetaminophen (Tylenol Liquid) 650 mg Q4H PRN NGT PAIN AND OR ELEVATED TEMP Last administered on 09/27/16 05:14; Admin Dose 650 MG; Start 09/21/16 at 02:00 Eye Lubricant (Artificial Tears Oph) 2 drop QID BOTH EYES Last administered on 10/06/16 20:57; Admin Dose 2 DROP; Start 09/21/16 at 09:00 Dextrose (D50w Syringe) 25 ml Q15M PRN IV Till BS 80 mg/dL or above x2; Start 09/21/16 at 08:00 Dextrose (D50w Syringe) 50 ml Q15M PRN IV Till BS 80 mg/dL or above x2; Start 09/21/16 at 08:00 Atorvastatin Calcium (Lipitor) 80 mg HS NGT Last administered on 10/06/16 20:57 ; Admin Dose 80 MG; Start 09/22/16 at 21:00 Insulin Aspart (Novolog Insulin Pen) NOVOLOG *MILD* ALGORI... Q4 SC Last administered on 10/05/16 16:53; Admin Dose 7 UNIT; Start 09/25/16 at 13:00; Status Future Hold Pantoprazole (Protonix Iv) 40 mg AM IV Last administered on 10/06/16 08:01; Admin Dose 40 MG; Start 09/26/16 at 09:00 Epoetin Raj (Epogen (Esrd)) 10,000 units TuThSa@17 SC Last administered on 10/05 17:12; Admin Dose 10,000 UNITS; Start 09/26/16 at 17:00 IV Flush (NS 10 ml) 10 ml PRN PRN IV IV PROTOCOL; Start 09/26/16 at 17:30 Aspirin (Aspirin) 81 mg DAILY NGT Last administered on 10/06/16 08:01; Admin Dose 81 MG; Start 09/27/16 at 09:00 Clopidogrel Bisulfate 75 mg 75 mg DAILY NGT Last administered on 10/06/16 08:02 ; Admin Dose 75 MG; Start 09/27/16 at 09:00 Piperacillin Sod/ Tazobactam Sod (Zosyn 2.25gm/ 50ml (Pmx)) 50 ml @ 100 mls/hr Q8 IVPB Last administered on 10/07/16 06:19; Admin Dose 100 MLS/HR; Start 09/28 at 14:00 Morphine Sulfate (morphine) 2 mg Q4H PRN IV PAIN Last administered on 10/06/16 23:16; Admin Dose 2 MG; Start 09/28/16 at 16:00 Sodium Biphosphate/ Sodium Phosphate 133 ml 133 ml DAILY PRN [place] CONSTIPATION; Start 10/01/16 at 17:00 Norepinephrine/ Dextrose (Levophed/D5W) 500 ml @ 1.87 mls/hr TITRATE IV ; Start 10/04/16 at 07:00 Fluconazole (Diflucan) 100 mg DAILY GTB Last administered on 10/06/16 08:01; Admin Dose 100 MG; Start 10/05/16 at 09:00 Dextrose (D50w Syringe) 25 ml Q15M PRN IV Till BS 80 mg/dL or above x2; Start 10/05/16 at 17:30 Dextrose (D50w Syringe) 50 ml Q15M PRN IV Till BS 80 mg/dL or above x2; Start 10/05/16 at 17:30 Insulin Glargine (Lantus) 50 unit DAILY@08 SC Last administered on 10/06/16 07: 56; Admin Dose 50 UNIT; Start 10/06/16 at 08:00 Diagnostic Test (Pha) (Accu-Chek) 1 ea Q1H XX Last administered on 10/07/16 07: 04; Admin Dose 1 EA; Start 10/05/16 at 19:00 Potassium Chloride (Potassium Chloride Pwd/Soln) 40 meq ONCE ONCE GTB ; Start 10/07/16 at 08:30; Stop 10/07/16 at 08:31 DAMIR MARTINEZ MD Oct 07, 2016 08:32
[2016-10-07] MEDS: PANTOPRAZOLE 40 MG INJ IV SCH (08:54)
[2016-10-07] MEDS: ASPIRIN 81 MG TAB NGT SCH (08:55)
[2016-10-07] MEDS: FLUCONAZOLE 100 MG TAB GTB SCH (08:55)
[2016-10-07] MEDS: ARTIFICIAL TEARS 15 ML OPH BOTH EYES SCH ×4 (08:55→21:11)
[2016-10-07] MEDS: CLOPIDOGREL 75 MG TAB NGT SCH (08:55)
[2016-10-07] MEDS: INSULIN GLARGINE [LANtus] 3 ML PEN SC SCH (08:58)
--- NOTE | 2016-10-07 09:52 | CONS ---
Date/Time of Note Date/Time of Note DATE: 10/07/16 TIME: 09:50 Consult Date/Type/Reason Admit Date/Time Sep 20, 2016 at 19:21 Initial Consult Date 09/23/16 Type of Consultation: Pulmonary/critical care Ordering Provider: ZANDRA ROBISON MD, [facility] Subjective Patient opens eyes follows simple commands on mechanical ventilation Objective Vital Signs Date Time Temp Pulse Resp B/P Pulse Ox O2 Delivery O2 Flow Rate FiO2 10/07/16 08:00 75 10/07/16 07:00 16 98/54 100 Mechanical Ventilator 10/07/16 05:15 50 10/07/16 04:00 97.6 10/03/16 12:00 12.0 Intake and Output 10/06/16 10/06/16 10/07/16 15:00 23:00 07:00 Intake Total 564.5 ml 1021.5 ml 446 ml Output Total 75 ml 1555 ml 35 ml Balance 489.5 ml -533.5 ml 411 ml Exam PHYSICAL EXAMINATION GENERAL: Elderly lady intubated on mechanical ventilation HEENT pupils equal, round, and reactive to light. CARDIAC: S1, S2, 3/6 systolic ejection murmur CHEST: Diminished air entry bilaterally. Right side worse than left ABDOMEN: Mildly distended. Bowel sounds present no guarding or rebound EXTREMITIES: No cyanosis, clubbing edema +2 NEUROLOGIC: Generalized weakness Skin: purpuric lesions Results/Medications Result Diagram: 10/07/16 0500 10/07/16 0500 Results 24 hrs Chest x-ray shows opacification of right lung Laboratory Tests Test 10/06/16 10:02 10/06/16 10:56 10/06/16 11:56 10/06/16 12:55 Bedside Glucose 102 117 120 122 Test 10/06/16 14:09 10/06/16 15:00 10/06/16 15:52 10/06/16 16:59 Bedside Glucose 122 127 156 157 Test 10/06/16 18:57 10/06/16 20:05 10/06/16 21:03 10/06/16 22:03 Bedside Glucose 198 209 224 H 246 H Test 10/06/16 23:07 10/06/16 23:59 10/07/16 01:00 10/07/16 02:02 Bedside Glucose 229 H 214 200 175 Test 10/07/16 03:02 10/07/16 04:02 10/07/16 04:57 10/07/16 05:00 Bedside Glucose 169 141 140 White Blood Count 20.6 H Red Blood Count 2.60 L Hemoglobin 7.3 L Hematocrit 24.6 L Mean Corpuscular Volume 94.6 Mean Corpuscular Hemoglobin 28.1 L Mean Corpuscular Hemoglobin Concent 29.7 L Red Cell Distribution Width 22.6 H Platelet Count 124 #L Mean Platelet Volume 12.2 H Neutrophils % 87.7 H Lymphocytes % 5.6 L Monocytes % 5.1 Eosinophils % 0.7 Basophils % 0.1 Nucleated Red Blood Cells % 2.1 H Neutrophils # 18.1 H Lymphocytes # 1.2 Monocytes # 1.1 H Eosinophils # 0.1 Basophils # 0.0 Nucleated Red Blood Cells # 0.4 H Blood Gas Specimen Source Blood arterial Arterial Blood Date Drawn 10/07/2016 4:45:35 AM Arterial Blood pH (Temp corrected) 7.389 Arterial Blood pCO2 (Temp correct) 41.7 Arterial Blood pO2 (Temp corrected) 112.3 H Arterial Blood HCO3 24.6 Arterial Blood Base Excess -0.3 Arterial Blood Oxygen Saturation 97.5 Raz Test ACCEPTAB Arterial Blood Gas Puncture Site Left Radial Arterial Blood Carboxyhemoglobin 0.3 Arterial Blood Methemoglobin 0.4 Blood Gas A-a O2 Differential 197.3 H Oxyhemoglobin Percent 96.8 Total Hemoglobin 8.0 L Blood Gas Temperature 37.0 Blood Gas Respiration Rate 16.0 Blood Gas Actual Respiration Rate 16 Blood Gas Modality VENT - AC FiO2 50.0 Blood Gas Tidal Volume 500.0 Blood Gas Low PEEP Setting 5.0 Blood Gas Notified Whom MG Blood Gas Notified Time 10/07/2016 5:04:14 AM Sodium Level 141 Potassium Level 3.2 L Chloride Level 101 Carbon Dioxide Level 26 Anion Gap 17 H Blood Urea Nitrogen 92 H Creatinine 4.03 H Glucose Level 137 Lactic Acid Level 1.0 Calcium Level 7.6 L Phosphorus Level 5.9 H Test 10/07/16 06:01 10/07/16 07:03 10/07/16 07:33 10/07/16 08:46 Bedside Glucose 142 119 126 110 Medications Current Medications Miscellaneous Information 1 ea NOTE XX ; Start 09/20/16 at 22:00 Glucose (Glutose) 15 gm Q15M PRN PO DECREASED GLUCOSE; Start 09/20/16 at 22:00 Glucose (Glutose) 22.5 gm Q15M PRN PO DECREASED GLUCOSE; Start 09/20/16 at 22: 00 Glucagon (Glucagen) 1 mg Q15M PRN IM DECREASED GLUCOSE; Start 09/20/16 at 22:00 Glucose (Glutose) 15 gm Q15M PRN BUCCAL DECREASED GLUCOSE; Start 09/20/16 at 22 :00 Acetaminophen (Tylenol Liquid) 650 mg Q4H PRN NGT PAIN AND OR ELEVATED TEMP Last administered on 09/27/16 05:14; Admin Dose 650 MG; Start 09/21/16 at 02:00 Eye Lubricant (Artificial Tears Oph) 2 drop QID BOTH EYES Last administered on 10/07/16 08:55; Admin Dose 2 DROP; Start 09/21/16 at 09:00 Dextrose (D50w Syringe) 25 ml Q15M PRN IV Till BS 80 mg/dL or above x2; Start 09/21/16 at 08:00 Dextrose (D50w Syringe) 50 ml Q15M PRN IV Till BS 80 mg/dL or above x2; Start 09/21/16 at 08:00 Atorvastatin Calcium (Lipitor) 80 mg HS NGT Last administered on 10/06/16 20:57 ; Admin Dose 80 MG; Start 09/22/16 at 21:00 Insulin Aspart (Novolog Insulin Pen) NOVOLOG *MILD* ALGORI... Q4 SC Last administered on 10/05/16 16:53; Admin Dose 7 UNIT; Start 09/25/16 at 13:00; Status Future Hold Pantoprazole (Protonix Iv) 40 mg AM IV Last administered on 10/07/16 08:54; Admin Dose 40 MG; Start 09/26/16 at 09:00 Epoetin Raj (Epogen (Esrd)) 10,000 units TuThSa@17 SC Last administered on 10/05 17:12; Admin Dose 10,000 UNITS; Start 09/26/16 at 17:00 IV Flush (NS 10 ml) 10 ml PRN PRN IV IV PROTOCOL; Start 09/26/16 at 17:30 Aspirin (Aspirin) 81 mg DAILY NGT Last administered on 10/07/16 08:55; Admin Dose 81 MG; Start 09/27/16 at 09:00 Clopidogrel Bisulfate 75 mg 75 mg DAILY NGT Last administered on 10/07/16 08:55 ; Admin Dose 75 MG; Start 09/27/16 at 09:00 Piperacillin Sod/ Tazobactam Sod (Zosyn 2.25gm/ 50ml (Pmx)) 50 ml @ 100 mls/hr Q8 IVPB Last administered on 10/07/16 06:19; Admin Dose 100 MLS/HR; Start 09/28 at 14:00 Morphine Sulfate (morphine) 2 mg Q4H PRN IV PAIN Last administered on 10/06/16 23:16; Admin Dose 2 MG; Start 09/28/16 at 16:00 Sodium Biphosphate/ Sodium Phosphate 133 ml 133 ml DAILY PRN [place] CONSTIPATION; Start 10/01/16 at 17:00 Norepinephrine/ Dextrose (Levophed/D5W) 500 ml @ 1.87 mls/hr TITRATE IV ; Start 10/04/16 at 07:00 Fluconazole (Diflucan) 100 mg DAILY GTB Last administered on 10/07/16 08:55; Admin Dose 100 MG; Start 10/05/16 at 09:00 Dextrose (D50w Syringe) 25 ml Q15M PRN IV Till BS 80 mg/dL or above x2; Start 10/05/16 at 17:30 Dextrose (D50w Syringe) 50 ml Q15M PRN IV Till BS 80 mg/dL or above x2; Start 10/05/16 at 17:30 Insulin Glargine (Lantus) 50 unit DAILY@08 SC Last administered on 10/07/16 08: 58; Admin Dose 50 UNIT; Start 10/06/16 at 08:00 Diagnostic Test (Pha) 1 ea 1 ea Q1H XX Last administered on 10/07/16 08:55; Admin Dose 1 EA; Start 10/05/16 at 19:00 Midazolam HCl (Versed) 50 ml @ 1 mls/hr TITRATE IV Last administered on 09:47; Admin Dose 3 MLS/HR; Start 10/07/16 at 10:00 Assessment/Plan Chief Complaint/Hosp Course IMPRESSION 1. Status post Cardiac arrest. ST elevation VA stent placement to RCA significant bradycardia possibly vasovagal 2. Significant neurological recovery from initial encephalopathy 3. Acute renal failure, probably acute tubular necrosis injury. Now on hemodialysis 4. Status post Shock liver. 5. Hypoxemic respiratory failure now reintubated chest x-ray demonstrating opacification of right lung likely secondary to mucous plugging Plan 1. Continue mechanical ventilation. Will require bronchoscopy to clear excessive mucous secretions. May also require Mucomyst and/or thoracentesis if evidence of pleural effusion 2. Continue renal recommendations. Hemodialysis as tolerated 3. Vasopressors if needed 4. Broad-spectrum antibiotic coverage. 5. Continue DVT and GI prophylaxis 6. We'll consider transfusion of another unit packed red blood cells with hemodialysis Disposition Continue ICU supportive care Discussed with family at bedside Critical care time 35 minutes Problems: ZANDRA ROBISON MD, [facility] Oct 07, 2016 09:52
[2016-10-07] MEDS ORDERED: MIDAZOLAM (DRIP) 50 mg/50 mL 50 ML IV SCH (10:00)
[2016-10-07] MEDS ORDERED: ATROPINE 1 MG/10 ML SYRINGE ONE (10:47)
[2016-10-07] MEDS ORDERED: DOPamine-D5W 1.6 MG/ML 250 ML ONE (11:01)
[2016-10-07] MEDS ORDERED: DOPamine-D5W 1.6 MG/ML 250 ML IV SCH (11:30)
--- NOTE | 2016-10-07 11:43 | PN ---
Date/Time of Note Date/Time of Note DATE: 10/06/16 TIME: 10:37 Assessment/Plan VTE Prophylaxis VTE Prophylaxis Intervention: contraindicated (ANEMIC) Lines/Catheters IV Catheter Type (from Nrsg): PICC Line Central line still needed: No Urinary Cath still in place: Yes Reason Cath still needed: terminal illness/intractable pain, other (indicate) ( IN ICU BED BOUND, INTUBATED) Assessment/Plan Assessment/Plan 1.CAD--S/P 2 ARRESTS 2. ARF--INTUBATED 3. ARF--DIALYSIS/ ANEMIA 4. PVD 5. DM 6. AMS 7. HIGH WBC ---PER PULM ---PER CARDS ---PER RENAL ---PER ID ---CONT IV ATBX ---CONT IVF ---REPLACE W/ SUPPS Subjective 24 Hr Interval Summary Free Text/Dictation INTUBATED, SEDATED Exam/Review of Systems Vital Signs Vitals Vital Signs Date Time Temp Pulse Resp B/P Pulse Ox O2 Delivery O2 Flow Rate FiO2 10/07/16 10:00 76 9 92/51 100 Mechanical Ventilator 10/07/16 09:18 50 10/07/16 08:00 97.5 10/03/16 12:00 12.0 Intake and Output 10/06/16 10/06/16 10/07/16 15:00 23:00 07:00 Intake Total 564.5 ml 1021.5 ml 446 ml Output Total 75 ml 1555 ml 35 ml Balance 489.5 ml -533.5 ml 411 ml Exam IN ICU, RESPONSIVE TO PAIN RR DIAST M+ DEC BS BIBASILAR+ OBESE+ GLOBAL LYMPHATIC EDEMA, A FEW TOES BLUE+ Results Result Diagram: 10/07/16 0500 10/07/16 0500 Results 24 hrs Laboratory Tests Test 10/06/16 11:56 10/06/16 12:55 10/06/16 14:09 10/06/16 15:00 Bedside Glucose 120 122 122 127 Test 10/06/16 15:52 10/06/16 16:59 10/06/16 18:57 10/06/16 20:05 Bedside Glucose 156 157 198 209 Test 10/06/16 21:03 10/06/16 22:03 10/06/16 23:07 10/06/16 23:59 Bedside Glucose 224 H 246 H 229 H 214 Test 10/07/16 01:00 10/07/16 02:02 10/07/16 03:02 10/07/16 04:02 Bedside Glucose 200 175 169 141 Test 10/07/16 04:57 10/07/16 05:00 10/07/16 06:01 10/07/16 07:03 Bedside Glucose 140 142 119 White Blood Count 20.6 H Red Blood Count 2.60 L Hemoglobin 7.3 L Hematocrit 24.6 L Mean Corpuscular Volume 94.6 Mean Corpuscular Hemoglobin 28.1 L Mean Corpuscular Hemoglobin Concent 29.7 L Red Cell Distribution Width 22.6 H Platelet Count 124 #L Mean Platelet Volume 12.2 H Neutrophils % 87.7 H Lymphocytes % 5.6 L Monocytes % 5.1 Eosinophils % 0.7 Basophils % 0.1 Nucleated Red Blood Cells % 2.1 H Neutrophils # 18.1 H Lymphocytes # 1.2 Monocytes # 1.1 H Eosinophils # 0.1 Basophils # 0.0 Nucleated Red Blood Cells # 0.4 H Blood Gas Specimen Source Blood arterial Arterial Blood Date Drawn 10/07/2016 4:45:35 AM Arterial Blood pH (Temp corrected) 7.389 Arterial Blood pCO2 (Temp correct) 41.7 Arterial Blood pO2 (Temp corrected) 112.3 H Arterial Blood HCO3 24.6 Arterial Blood Base Excess -0.3 Arterial Blood Oxygen Saturation 97.5 Raz Test ACCEPTAB Arterial Blood Gas Puncture Site Left Radial Arterial Blood Carboxyhemoglobin 0.3 Arterial Blood Methemoglobin 0.4 Blood Gas A-a O2 Differential 197.3 H Oxyhemoglobin Percent 96.8 Total Hemoglobin 8.0 L Blood Gas Temperature 37.0 Blood Gas Respiration Rate 16.0 Blood Gas Actual Respiration Rate 16 Blood Gas Modality VENT - AC FiO2 50.0 Blood Gas Tidal Volume 500.0 Blood Gas Low PEEP Setting 5.0 Blood Gas Notified Whom MG Blood Gas Notified Time 10/07/2016 5:04:14 AM Sodium Level 141 Potassium Level 3.2 L Chloride Level 101 Carbon Dioxide Level 26 Anion Gap 17 H Blood Urea Nitrogen 92 H Creatinine 4.03 H Glucose Level 137 Lactic Acid Level 1.0 Calcium Level 7.6 L Phosphorus Level 5.9 H Test 10/07/16 07:33 10/07/16 08:46 10/07/16 09:50 10/07/16 11:09 Bedside Glucose 126 110 91 133 Medications Medications Current Medications Miscellaneous Information 1 ea NOTE XX ; Start 09/20/16 at 22:00 Glucose (Glutose) 15 gm Q15M PRN PO DECREASED GLUCOSE; Start 09/20/16 at 22:00 Glucose (Glutose) 22.5 gm Q15M PRN PO DECREASED GLUCOSE; Start 09/20/16 at 22: 00 Glucagon (Glucagen) 1 mg Q15M PRN IM DECREASED GLUCOSE; Start 09/20/16 at 22:00 Glucose (Glutose) 15 gm Q15M PRN BUCCAL DECREASED GLUCOSE; Start 09/20/16 at 22 :00 Acetaminophen (Tylenol Liquid) 650 mg Q4H PRN NGT PAIN AND OR ELEVATED TEMP Last administered on 09/27/16 05:14; Admin Dose 650 MG; Start 09/21/16 at 02:00 Eye Lubricant (Artificial Tears Oph) 2 drop QID BOTH EYES Last administered on 10/07/16 08:55; Admin Dose 2 DROP; Start 09/21/16 at 09:00 Dextrose (D50w Syringe) 25 ml Q15M PRN IV Till BS 80 mg/dL or above x2; Start 09/21/16 at 08:00 Dextrose (D50w Syringe) 50 ml Q15M PRN IV Till BS 80 mg/dL or above x2; Start 09/21/16 at 08:00 Atorvastatin Calcium (Lipitor) 80 mg HS NGT Last administered on 10/06/16 20:57 ; Admin Dose 80 MG; Start 09/22/16 at 21:00 Insulin Aspart (Novolog Insulin Pen) NOVOLOG *MILD* ALGORI... Q4 SC Last administered on 10/05/16 16:53; Admin Dose 7 UNIT; Start 09/25/16 at 13:00; Status Future Hold Pantoprazole (Protonix Iv) 40 mg AM IV Last administered on 10/07/16 08:54; Admin Dose 40 MG; Start 09/26/16 at 09:00 Epoetin Raj (Epogen (Esrd)) 10,000 units TuThSa@17 SC Last administered on 10/05 17:12; Admin Dose 10,000 UNITS; Start 09/26/16 at 17:00 IV Flush (NS 10 ml) 10 ml PRN PRN IV IV PROTOCOL; Start 09/26/16 at 17:30 Aspirin (Aspirin) 81 mg DAILY NGT Last administered on 10/07/16 08:55; Admin Dose 81 MG; Start 09/27/16 at 09:00 Clopidogrel Bisulfate 75 mg 75 mg DAILY NGT Last administered on 10/07/16 08:55 ; Admin Dose 75 MG; Start 09/27/16 at 09:00 Piperacillin Sod/ Tazobactam Sod (Zosyn 2.25gm/ 50ml (Pmx)) 50 ml @ 100 mls/hr Q8 IVPB Last administered on 10/07/16 06:19; Admin Dose 100 MLS/HR; Start 09/28 at 14:00 Morphine Sulfate (morphine) 2 mg Q4H PRN IV PAIN Last administered on 10/06/16 23:16; Admin Dose 2 MG; Start 09/28/16 at 16:00 Sodium Biphosphate/ Sodium Phosphate 133 ml 133 ml DAILY PRN [place] CONSTIPATION; Start 10/01/16 at 17:00 Norepinephrine/ Dextrose (Levophed/D5W) 500 ml @ 1.87 mls/hr TITRATE IV ; Start 10/04/16 at 07:00 Fluconazole (Diflucan) 100 mg DAILY GTB Last administered on 10/07/16 08:55; Admin Dose 100 MG; Start 10/05/16 at 09:00 Dextrose (D50w Syringe) 25 ml Q15M PRN IV Till BS 80 mg/dL or above x2; Start 10/05/16 at 17:30 Dextrose (D50w Syringe) 50 ml Q15M PRN IV Till BS 80 mg/dL or above x2; Start 10/05/16 at 17:30 Insulin Glargine (Lantus) 50 unit DAILY@08 SC Last administered on 10/07/16 08: 58; Admin Dose 50 UNIT; Start 10/06/16 at 08:00 Diagnostic Test (Pha) 1 ea 1 ea Q1H XX Last administered on 10/07/16 09:50; Admin Dose 1 EA; Start 10/05/16 at 19:00 Midazolam HCl 50 ml @ 1 mls/hr TITRATE IV Last administered on 10/07/16 09:47; Admin Dose 3 MLS/HR; Start 10/07/16 at 10:00 Dopamine HCl/ Dextrose 250 ml @ 7.5 mls/hr TITRATE IV ; Start 10/07/16 at 11:30 SHAMA LOPEZ MD Oct 07, 2016 11:43
--- NOTE | 2016-10-07 11:53 | PN ---
Date/Time of Note Date/Time of Note DATE: 10/07/16 TIME: 11:46 Assessment/Plan VTE Prophylaxis VTE Prophylaxis Intervention: other (ON ASA/ PLAVIX) Lines/Catheters IV Catheter Type (from Nrsg): PICC Line Central line still needed: No Urinary Cath still in place: Yes Reason Cath still needed: other (indicate) (ICU BED BOUND) Assessment/Plan Assessment/Plan 1. CAD/ LOW BP/ PVD DUE TO LOW PERFUSION 2. ARF--INTUBATED, W/ EFFUSION, W/ PNEUMONITIS, ELEV WBC 3. ARF--DIALYSIS/ ANEMIA 4. DM ---PER CARDS ---PER PULM, AWAITING BRONCHOSCOPY ---PER RENAL ---PER ID ---BLOOD TRANSFUSION ---CONT IV ATBX ---CONT ALL SUPPORTIVE CARES TILL THIS WEEK'S FAMILY MEETING Subjective 24 Hr Interval Summary Free Text/Dictation INTUBATED, SEDATED Exam/Review of Systems Vital Signs Vitals Vital Signs Date Time Temp Pulse Resp B/P Pulse Ox O2 Delivery O2 Flow Rate FiO2 10/07/16 10:00 76 9 92/51 100 Mechanical Ventilator 10/07/16 09:18 50 10/07/16 08:00 97.5 10/03/16 12:00 12.0 Intake and Output 10/06/16 10/06/16 10/07/16 15:00 23:00 07:00 Intake Total 564.5 ml 1021.5 ml 446 ml Output Total 75 ml 1555 ml 35 ml Balance 489.5 ml -533.5 ml 411 ml Exam SPONT FACIAL MOVES ONLY+ DEC BS+ RR DIAST M+ OBESE+ TOES BLUE+, HANDS LYMPHATIC EDEMA+ Results Result Diagram: 10/07/16 0500 10/07/16 0500 Results 24 hrs Laboratory Tests Test 10/06/16 11:56 10/06/16 12:55 10/06/16 14:09 10/06/16 15:00 Bedside Glucose 120 122 122 127 Test 10/06/16 15:52 10/06/16 16:59 10/06/16 18:57 10/06/16 20:05 Bedside Glucose 156 157 198 209 Test 10/06/16 21:03 10/06/16 22:03 10/06/16 23:07 10/06/16 23:59 Bedside Glucose 224 H 246 H 229 H 214 Test 10/07/16 01:00 10/07/16 02:02 10/07/16 03:02 10/07/16 04:02 Bedside Glucose 200 175 169 141 Test 10/07/16 04:57 10/07/16 05:00 10/07/16 06:01 10/07/16 07:03 Bedside Glucose 140 142 119 White Blood Count 20.6 H Red Blood Count 2.60 L Hemoglobin 7.3 L Hematocrit 24.6 L Mean Corpuscular Volume 94.6 Mean Corpuscular Hemoglobin 28.1 L Mean Corpuscular Hemoglobin Concent 29.7 L Red Cell Distribution Width 22.6 H Platelet Count 124 #L Mean Platelet Volume 12.2 H Neutrophils % 87.7 H Lymphocytes % 5.6 L Monocytes % 5.1 Eosinophils % 0.7 Basophils % 0.1 Nucleated Red Blood Cells % 2.1 H Neutrophils # 18.1 H Lymphocytes # 1.2 Monocytes # 1.1 H Eosinophils # 0.1 Basophils # 0.0 Nucleated Red Blood Cells # 0.4 H Blood Gas Specimen Source Blood arterial Arterial Blood Date Drawn 10/07/2016 4:45:35 AM Arterial Blood pH (Temp corrected) 7.389 Arterial Blood pCO2 (Temp correct) 41.7 Arterial Blood pO2 (Temp corrected) 112.3 H Arterial Blood HCO3 24.6 Arterial Blood Base Excess -0.3 Arterial Blood Oxygen Saturation 97.5 Raz Test ACCEPTAB Arterial Blood Gas Puncture Site Left Radial Arterial Blood Carboxyhemoglobin 0.3 Arterial Blood Methemoglobin 0.4 Blood Gas A-a O2 Differential 197.3 H Oxyhemoglobin Percent 96.8 Total Hemoglobin 8.0 L Blood Gas Temperature 37.0 Blood Gas Respiration Rate 16.0 Blood Gas Actual Respiration Rate 16 Blood Gas Modality VENT - AC FiO2 50.0 Blood Gas Tidal Volume 500.0 Blood Gas Low PEEP Setting 5.0 Blood Gas Notified Whom MG Blood Gas Notified Time 10/07/2016 5:04:14 AM Sodium Level 141 Potassium Level 3.2 L Chloride Level 101 Carbon Dioxide Level 26 Anion Gap 17 H Blood Urea Nitrogen 92 H Creatinine 4.03 H Glucose Level 137 Lactic Acid Level 1.0 Calcium Level 7.6 L Phosphorus Level 5.9 H Test 10/07/16 07:33 10/07/16 08:46 10/07/16 09:50 10/07/16 11:09 Bedside Glucose 126 110 91 133 Medications Medications Current Medications Miscellaneous Information 1 ea NOTE XX ; Start 09/20/16 at 22:00 Glucose (Glutose) 15 gm Q15M PRN PO DECREASED GLUCOSE; Start 09/20/16 at 22:00 Glucose (Glutose) 22.5 gm Q15M PRN PO DECREASED GLUCOSE; Start 09/20/16 at 22: 00 Glucagon (Glucagen) 1 mg Q15M PRN IM DECREASED GLUCOSE; Start 09/20/16 at 22:00 Glucose (Glutose) 15 gm Q15M PRN BUCCAL DECREASED GLUCOSE; Start 09/20/16 at 22 :00 Acetaminophen (Tylenol Liquid) 650 mg Q4H PRN NGT PAIN AND OR ELEVATED TEMP Last administered on 09/27/16 05:14; Admin Dose 650 MG; Start 09/21/16 at 02:00 Eye Lubricant (Artificial Tears Oph) 2 drop QID BOTH EYES Last administered on 10/07/16 08:55; Admin Dose 2 DROP; Start 09/21/16 at 09:00 Dextrose (D50w Syringe) 25 ml Q15M PRN IV Till BS 80 mg/dL or above x2; Start 09/21/16 at 08:00 Dextrose (D50w Syringe) 50 ml Q15M PRN IV Till BS 80 mg/dL or above x2; Start 09/21/16 at 08:00 Atorvastatin Calcium (Lipitor) 80 mg HS NGT Last administered on 10/06/16 20:57 ; Admin Dose 80 MG; Start 09/22/16 at 21:00 Insulin Aspart (Novolog Insulin Pen) NOVOLOG *MILD* ALGORI... Q4 SC Last administered on 10/05/16 16:53; Admin Dose 7 UNIT; Start 09/25/16 at 13:00; Status Future Hold Pantoprazole (Protonix Iv) 40 mg AM IV Last administered on 10/07/16 08:54; Admin Dose 40 MG; Start 09/26/16 at 09:00 Epoetin Raj (Epogen (Esrd)) 10,000 units TuThSa@17 SC Last administered on 10/05 17:12; Admin Dose 10,000 UNITS; Start 09/26/16 at 17:00 IV Flush (NS 10 ml) 10 ml PRN PRN IV IV PROTOCOL; Start 09/26/16 at 17:30 Aspirin (Aspirin) 81 mg DAILY NGT Last administered on 10/07/16 08:55; Admin Dose 81 MG; Start 09/27/16 at 09:00 Clopidogrel Bisulfate 75 mg 75 mg DAILY NGT Last administered on 10/07/16 08:55 ; Admin Dose 75 MG; Start 09/27/16 at 09:00 Piperacillin Sod/ Tazobactam Sod (Zosyn 2.25gm/ 50ml (Pmx)) 50 ml @ 100 mls/hr Q8 IVPB Last administered on 10/07/16 06:19; Admin Dose 100 MLS/HR; Start 09/28 at 14:00 Morphine Sulfate (morphine) 2 mg Q4H PRN IV PAIN Last administered on 10/06/16 23:16; Admin Dose 2 MG; Start 09/28/16 at 16:00 Sodium Biphosphate/ Sodium Phosphate 133 ml 133 ml DAILY PRN [place] CONSTIPATION; Start 10/01/16 at 17:00 Norepinephrine/ Dextrose (Levophed/D5W) 500 ml @ 1.87 mls/hr TITRATE IV ; Start 10/04/16 at 07:00 Fluconazole (Diflucan) 100 mg DAILY GTB Last administered on 10/07/16 08:55; Admin Dose 100 MG; Start 10/05/16 at 09:00 Dextrose (D50w Syringe) 25 ml Q15M PRN IV Till BS 80 mg/dL or above x2; Start 10/05/16 at 17:30 Dextrose (D50w Syringe) 50 ml Q15M PRN IV Till BS 80 mg/dL or above x2; Start 10/05/16 at 17:30 Insulin Glargine (Lantus) 50 unit DAILY@08 SC Last administered on 10/07/16 08: 58; Admin Dose 50 UNIT; Start 10/06/16 at 08:00 Diagnostic Test (Pha) 1 ea 1 ea Q1H XX Last administered on 10/07/16 09:50; Admin Dose 1 EA; Start 10/05/16 at 19:00 Midazolam HCl 50 ml @ 1 mls/hr TITRATE IV Last administered on 10/07/16 09:47; Admin Dose 3 MLS/HR; Start 10/07/16 at 10:00 Dopamine HCl/ Dextrose 250 ml @ 7.5 mls/hr TITRATE IV ; Start 10/07/16 at 11:30 SHAMA LOPEZ MD Oct 07, 2016 11:53
--- NOTE | 2016-10-07 12:46 | RADRPT ---
PROCEDURE: XR Chest. CLINICAL INDICATION: Shortness of breath. Post bronchoscopy TECHNIQUE: Single frontal view. COMPARISON: 10/07/2016. 0641 hours. FINDINGS: The endotracheal tube, left arm PICC line, and nasogastric tube remain in satisfactory position. Th ere is complete opacification of the right hemithorax, unchanged. The left lung is clear. The heart size is normal. There is no pneumothorax. IMPRESSION: 1. No pneumothorax following bronchoscopy. 2. No other change from the prior study done earlier the same day. RPTAT: QQ .Arnaldo Back MD, MD Date Time Electronically viewed and signed by .Arnaldo Back MD, on 10/07/2016 12:45 .R/
[2016-10-07] MEDS ORDERED: IPRATROPIUM (NEB) 0.5 MG/2.5 ML AMP INH SCH (14:00)
[2016-10-07] MEDS ORDERED: ALBUTEROL/IPRATROPIUM (NEB) 3 ML AMP HHN SCH (14:00)
[2016-10-07] MEDS ORDERED: IPRATROPIUM (NEB) 0.5 MG/2.5 ML AMP HHN SCH (14:00)
[2016-10-07] MEDS ORDERED: ALTEPLASE (CATHFLO) 2 MG INJ CATHETER ONE ×2 (14:00)
--- NOTE | 2016-10-07 14:47 | PN ---
DATE: 10/07/2016 INFECTIOUS DISEASE PROGRESS NOTE SUBJECTIVE: The patient was started on dopamine drip for bradycardia. She is also status post bron choscopy this morning with findings revealing copious fixed secretions. Cultures were sent. She is intubated and sedated, in no distress. VITAL SIGNS: Temperature 97.5, pulse 81, respirations 16, blood pressure 107/57, saturation 100 on 50 FIO2. LABORATORY DATA: WBC 20.6, H and H 7.3 and 24.6, platelets 124, neutrophils 87.7, no bands. INDWELLINGS: Right femoral Maninder, endotracheal tube, NG tube, Rivas catheter, PICC line placed on September 26. ANTIMICROBIALS: 1. Fluconazole. 2. Zosyn day #10. PHYSICAL EXAMINATION: GENERAL: This is a well-developed, obese, elderly woman who is intubated and sedated The patient is in no distress. HEENT: Head atraumatic, normocephalic. Sclerae anicteric. Buccal mucosa dry. NECK: Obese, trachea midline. CHEST: Rise symmetrical. Breath sounds diminished. HEART: S1, S2. ABDOMEN: Soft, bowel sounds present. EXTREMITIES: Bilateral lower extremities cyanotic toes. ASSESSMENT: 1. Sepsis. 2. Symptomatic bradycardia, on dopamine drip. 3. Healthcare-associated pneumonia with significant retention and mucous plugging, status post bron choscopy this morning. 4. Erica albicans urinary tract infection. 5. Acute on chronic kidney disease, hemodialysis dependent. 6. Status post cardiopulmonary arrest. PLAN: Continue present care antibiotics, await for bronchoalveolar lavage cultures. Follow recomme ndations of consultants. Dictated By: ROSALINA SIMS [employer] for NOEMI LARA/NTS Conf#: [id number] DID#: [id number]
[2016-10-07] MEDS: ACETYLCYSTEINE 20% 4 ML VIAL NEB SCH ×2 (14:54→19:24)
[2016-10-07] MEDS: IPRATROPIUM (HFA) 12.9 GM INHALER INH SCH ×2 (14:55→19:14)
[2016-10-07] MEDS: ALBUTEROL HFA 8 GM INHALER INH SCH ×2 (14:55→19:15)
--- NOTE | 2016-10-07 15:46 | SP ---
DATE OF PROCEDURE: 10/07/2016 PROCEDURE: Bronchoscopy with lavage. INDICATION: Opacification of right hemithorax, likely secondary to mucous plugging. DESCRIPTION OF PROCEDURE: Patient was already intubated on mechanical ventilation using flexible fi beroptic bronchoscope. It was passed through endotracheal tube to the level of the mary which was noted to be sharp in appearance. Thick copious secretions could be seen coming out of the right ma in stem bronchus. These were thick and tenacious requiring frequent suctioning and lavage. Samples were collected for Gram stain and culture. At the end of the procedure, secretions were significan tly improved in the right main stem bronchus. Left lung was examined in detail. This was noted to be normal in appearance and movement with no significant abnormalities. The patient tolerated the p rocedure well without complication. She continues mechanical ventilation post-procedure. Chest x-r ay is pending. Dictated By: ZANDRA ASTORGA/JERROD Conf#: [id number] DID#: [id number]
--- NOTE | 2016-10-07 16:27 | PN ---
DATE: 10/07/2016 PALLIATIVE CARE Mrs. Danielle is now on hemodialysis again last week. She remains intubated at this time and is stil l critically ill. Problems include status post cardiac arrest, status post hypothermia protocol. P atient required reintubation, now acute renal failure on dialysis, altered mental status, encephalop athy. She follows some simple commands on examination. There is otherwise no major improvement in her overall clinical condition. I will schedule an appointment to speak to family members to update them about her current overall medical condition by review of systems. Dictated By: DYLAN GIBBONS MD LP/NTS Conf#: [id number] DID#: [id number]
[2016-10-07] MEDS: ATORVASTATIN 80 MG TAB NGT SCH (21:11)
[2016-10-08] VITALS (95 sets, daily range): BP systolic 82–144; BP diastolic 45–98; PULSE 67–113; RESP 11–25
[2016-10-08] MEDS: INSULIN REGULAR, HUMAN 100 UNIT in SOD CHLORIDE 0.9% 99 ML IV SCH ×4 (00:01→21:06)
[2016-10-08] MEDS: ACCU-CHEK XX SCH ×24 (00:04→23:55)
[2016-10-08] MEDS: ALBUTEROL HFA 8 GM INHALER INH SCH ×3 (01:33→14:30)
[2016-10-08] MEDS: IPRATROPIUM (HFA) 12.9 GM INHALER INH SCH ×4 (01:33→19:36)
[2016-10-08] MEDS: ACETYLCYSTEINE 20% 4 ML VIAL NEB SCH ×4 (01:33→19:37)
[2016-10-08] MEDS: morphine 2 MG INJ IV PRN (03:06)
[2016-10-08] MEDS: PIPER-TAZO 2.25 GM (PMX) 50 ML IVPB SCH ×3 (06:05→21:12)
[2016-10-08 06:12] LABS: ADD SCAN DIFF NO
[2016-10-08 06:19] LABS: ABNORMAL IP MESSAGE 1; BASOPHILS % 0.1 % (0.0-2.0); EOSINOPHILS # 0.1 10^3/ul (0.0-0.5); EOSINOPHILS % 0.5 % (0.0-7.0); HEMATOCRIT 28.7 % (37.0-47.0); HEMOGLOBIN 8.7 g/dl (12.0-16.0); LYMPHOCYTES # 0.9 10^3/ul (0.8-2.9); LYMPHOCYTES % 4.9 % (15.0-51.0); MEAN CORPUSCULAR HEMOGLOBIN 28.5 pg (29.0-33.0); MEAN CORPUSCULAR HGB CONC 30.3 g/dl (32.0-37.0); MEAN CORPUSCULAR VOLUME 94.1 fl (82.0-101.0); MEAN PLATELET VOLUME 12.1 fl (7.4-10.4); MONOCYTE # 1.2 10^3/ul (0.3-0.9); MONOCYTES % 6.3 % (0.0-11.0); NEUTROPHILS % 87.2 % (39.0-77.0); NUCLEATED RED BLOOD CELLS # 0.2 10^3/ul (0.0-0.0); NUCLEATED RED BLOOD CELLS% 1.1 /100WBC (0.0-0.0); PLATELET COUNT 101 10^3/UL (140-415); RED BLOOD COUNT 3.05 10^6/ul (4.20-5.40); RED CELL DISTRIBUTION WIDTH 22.3 % (11.5-14.5); WHITE BLOOD COUNT 18.3 10^3/ul (4.8-10.8)
[2016-10-08 06:44] LABS: ALBUMIN 2.3 g/dl (3.3-4.9); POTASSIUM 3.5 mmol/L (3.5-5.1)
[2016-10-08 06:47] LABS: ALBUMIN/GLOBULIN RATIO 0.74; BILIRUBIN,INDIRECT 0.3 mg/dl (0-1.1); BILIRUBIN,TOTAL 0.3 mg/dl (0.2-1.3); PHOSPHORUS 5.7 mg/dl (2.5-4.9); TOTAL PROTEIN 5.4 g/dl (6.1-8.1)
[2016-10-08 06:48] LABS: CALCIUM 7.8 mg/dl (8.4-10.2); MAGNESIUM 2.2 mg/dl (1.7-2.5)
[2016-10-08 07:01] LABS: CREATININE 3.86 mg/dl (0.44-1.00)
--- NOTE | 2016-10-08 07:40 | CONS ---
Date/Time of Note Date/Time of Note DATE: 10/08/16 TIME: 07:34 Assessment/Plan Assessment/Plan Chief Complaint/Hosp Course 1. Acute Renal Failure due to ATN , nonoliguric . She had a hemodialysis treatment yesterday . She has had an increase in urine output overnight . She is on dopamine for BP support . Will hold dialysis today . labs in am . 2. ALOC , she is improved and responsive 3. liver enzyme elevation due to anoxia , enzymes are decreasing . 4. hypotension , she is now on Dopamine 5. hypocalcemia/hypoalbuminemia , her calcium level has increased. 6. anemia , she has not had any recent GI bleeding , blood transfused with dialysis yesterday. 7. peripheral vascular disease . 8. respiratory failure , ventilator dependent . Problems: Consultation Date/Type/Reason Admit Date/Time Sep 20, 2016 at 19:21 Initial Consult Date 09/23/16 Type of Consultation: Pulmonary/critical care Referring Provider: ZANDRA ROBISON MD, [facility] 24 HR Interval Summary Free Text/Dictation She is in the ICU , intubated , on a ventilator . she is lethargic , but does respond to verbal stimuli Subjective hx not possible: pt non-verbal Exam/Review of Systems Vital Signs Vitals Vital Signs Date Time Temp Pulse Resp B/P Pulse Ox O2 Delivery O2 Flow Rate FiO2 10/08/16 06:15 83 16 97/53 100 Mechanical Ventilator 10/08/16 05:51 30 10/08/16 04:00 97.7 Intake and Output 10/07/16 10/07/16 10/08/16 15:00 23:00 07:00 Intake Total 608.00 ml 587.75 ml 431.750 ml Output Total 2450 ml 315 ml 385 ml Balance -1842.00 ml 272.75 ml 46.750 ml Exam Constitutional: alert, non-verbal Respiratory: clear to auscultation, diminished breath sounds Cardiovascular: regular rate and rhythm Gastrointestinal: soft Extremities: edema Results Result Diagram: 10/08/16 0530 10/08/16 0530 Results 24 hrs Laboratory Tests Test 10/07/16 08:46 10/07/16 09:50 10/07/16 11:09 10/07/16 12:38 Bedside Glucose 110 91 133 111 Test 10/07/16 14:09 10/07/16 15:56 10/07/16 17:53 10/07/16 20:15 Bedside Glucose 109 115 145 153 Test 10/07/16 21:04 10/07/16 22:08 10/07/16 23:03 10/08/16 00:03 Bedside Glucose 157 187 152 191 Test 10/08/16 01:01 10/08/16 02:07 10/08/16 03:08 10/08/16 03:50 Bedside Glucose 188 159 139 124 Test 10/08/16 04:59 10/08/16 05:30 10/08/16 06:02 10/08/16 06:56 Bedside Glucose 107 105 119 White Blood Count 18.3 H Red Blood Count 3.05 L Hemoglobin 8.7 L Hematocrit 28.7 L Mean Corpuscular Volume 94.1 Mean Corpuscular Hemoglobin 28.5 L Mean Corpuscular Hemoglobin Concent 30.3 L Red Cell Distribution Width 22.3 H Platelet Count 101 L Mean Platelet Volume 12.1 H Neutrophils % 87.2 H Lymphocytes % 4.9 L Monocytes % 6.3 Eosinophils % 0.5 Basophils % 0.1 Nucleated Red Blood Cells % 1.1 H Neutrophils # 16.0 H Lymphocytes # 0.9 Monocytes # 1.2 H Eosinophils # 0.1 Basophils # 0.0 Nucleated Red Blood Cells # 0.2 H Sodium Level 142 Potassium Level 3.5 Chloride Level 103 Carbon Dioxide Level 26 Anion Gap 17 H Blood Urea Nitrogen 98 H Creatinine 3.86 H Glucose Level 111 Calcium Level 7.8 L Phosphorus Level 5.7 H Magnesium Level 2.2 Total Bilirubin 0.3 Direct Bilirubin 0.00 Indirect Bilirubin 0.3 Aspartate Amino Transf (AST/SGOT) 243 H Alanine Aminotransferase (ALT/SGPT) 239 H Alkaline Phosphatase 352 H Total Protein 5.4 L Albumin 2.3 L Globulin 3.10 Albumin/Globulin Ratio 0.74 Medications Medications Current Medications Miscellaneous Information 1 ea NOTE XX ; Start 09/20/16 at 22:00 Glucose (Glutose) 15 gm Q15M PRN PO DECREASED GLUCOSE; Start 09/20/16 at 22:00 Glucose (Glutose) 22.5 gm Q15M PRN PO DECREASED GLUCOSE; Start 09/20/16 at 22: 00 Glucagon (Glucagen) 1 mg Q15M PRN IM DECREASED GLUCOSE; Start 09/20/16 at 22:00 Glucose (Glutose) 15 gm Q15M PRN BUCCAL DECREASED GLUCOSE; Start 09/20/16 at 22 :00 Acetaminophen (Tylenol Liquid) 650 mg Q4H PRN NGT PAIN AND OR ELEVATED TEMP Last administered on 09/27/16 05:14; Admin Dose 650 MG; Start 09/21/16 at 02:00 Eye Lubricant (Artificial Tears Oph) 2 drop QID BOTH EYES Last administered on 10/07/16 21:11; Admin Dose 2 DROP; Start 09/21/16 at 09:00 Dextrose (D50w Syringe) 25 ml Q15M PRN IV Till BS 80 mg/dL or above x2; Start 09/21/16 at 08:00 Dextrose (D50w Syringe) 50 ml Q15M PRN IV Till BS 80 mg/dL or above x2; Start 09/21/16 at 08:00 Atorvastatin Calcium (Lipitor) 80 mg HS NGT Last administered on 10/07/16 21:11 ; Admin Dose 80 MG; Start 09/22/16 at 21:00 Insulin Aspart (Novolog Insulin Pen) NOVOLOG *MILD* ALGORI... Q4 SC Last administered on 10/05/16 16:53; Admin Dose 7 UNIT; Start 09/25/16 at 13:00; Status Future Hold Pantoprazole (Protonix Iv) 40 mg AM IV Last administered on 10/07/16 08:54; Admin Dose 40 MG; Start 09/26/16 at 09:00 Epoetin Raj (Epogen (Esrd)) 10,000 units TuThSa@17 SC Last administered on 10/05 17:12; Admin Dose 10,000 UNITS; Start 09/26/16 at 17:00 IV Flush (NS 10 ml) 10 ml PRN PRN IV IV PROTOCOL; Start 09/26/16 at 17:30 Aspirin (Aspirin) 81 mg DAILY NGT Last administered on 10/07/16 08:55; Admin Dose 81 MG; Start 09/27/16 at 09:00 Clopidogrel Bisulfate 75 mg 75 mg DAILY NGT Last administered on 10/07/16 08:55 ; Admin Dose 75 MG; Start 09/27/16 at 09:00 Piperacillin Sod/ Tazobactam Sod (Zosyn 2.25gm/ 50ml (Pmx)) 50 ml @ 100 mls/hr Q8 IVPB Last administered on 10/08/16 06:05; Admin Dose 100 MLS/HR; Start 09/28 at 14:00 Morphine Sulfate (morphine) 2 mg Q4H PRN IV PAIN Last administered on 10/08/16 03:06; Admin Dose 2 MG; Start 09/28/16 at 16:00 Sodium Biphosphate/ Sodium Phosphate 133 ml 133 ml DAILY PRN [place] CONSTIPATION; Start 10/01/16 at 17:00 Norepinephrine/ Dextrose (Levophed/D5W) 500 ml @ 1.87 mls/hr TITRATE IV ; Start 10/04/16 at 07:00 Fluconazole (Diflucan) 100 mg DAILY GTB Last administered on 10/07/16 08:55; Admin Dose 100 MG; Start 10/05/16 at 09:00 Dextrose (D50w Syringe) 25 ml Q15M PRN IV Till BS 80 mg/dL or above x2; Start 10/05/16 at 17:30 Dextrose (D50w Syringe) 50 ml Q15M PRN IV Till BS 80 mg/dL or above x2; Start 10/05/16 at 17:30 Insulin Glargine (Lantus) 50 unit DAILY@08 SC Last administered on 10/07/16 08: 58; Admin Dose 50 UNIT; Start 10/06/16 at 08:00 Diagnostic Test (Pha) 1 ea 1 ea Q1H XX Last administered on 10/08/16 06:02; Admin Dose 1 EA; Start 10/05/16 at 19:00 Midazolam HCl 50 ml @ 1 mls/hr TITRATE IV Last administered on 10/07/16 09:47; Admin Dose 3 MLS/HR; Start 10/07/16 at 10:00 Dopamine HCl/ Dextrose 250 ml @ 7.5 mls/hr TITRATE IV Last administered on 10/07 11:00; Admin Dose 37.5 MLS/HR; Start 10/07/16 at 11:30 DAMIR MARTINEZ MD Oct 08, 2016 07:40
[2016-10-08] MEDS ORDERED: POTASSIUM CHLORIDE 20 MEQ POWDER FOR ORAL SOLN GTB ONE (08:00)
[2016-10-08] MEDS: PANTOPRAZOLE 40 MG INJ IV SCH (08:26)
[2016-10-08] MEDS: ASPIRIN 81 MG TAB NGT SCH (08:26)
[2016-10-08] MEDS: FLUCONAZOLE 100 MG TAB GTB SCH (08:26)
[2016-10-08] MEDS: CLOPIDOGREL 75 MG TAB NGT SCH (08:26)
[2016-10-08] MEDS: INSULIN GLARGINE [LANtus] 3 ML PEN SC SCH (08:34)
[2016-10-08] MEDS: ARTIFICIAL TEARS 15 ML OPH BOTH EYES SCH ×4 (08:35→21:13)
--- NOTE | 2016-10-08 10:16 | CONS ---
Date/Time of Note Date/Time of Note DATE: 10/08/16 TIME: 10:13 Assessment/Plan Assessment/Plan Additional Assessment/Plan Ventilator settings; AC of 16, tidal volume 500, PEEP of 5, 30% FiO2. Assessment recommendations; next 1. Patient admitted with cardiac arrest with respiratory failure. 2. Acute renal failure 3. Shock liver. 4. Atelectasis of the right lung. Status post bronchoscopy. 5. Generalized edema. 6. Severe muscular weakness. Obtain a stat chest x-ray. Continue current supportive care and antibiotics, ventilator settings as well as hemodialysis. Once chest x-ray is done I will review it and make further recommendations regarding weaning from ventilator. Prognosis remains guarded Consultation Date/Type/Reason Admit Date/Time Sep 20, 2016 at 19:21 Initial Consult Date 09/23/16 Type of Consultation: Pulmonary/critical care Referring Provider: ZANDRA ROBISON MD, [facility] 24 HR Interval Summary Free Text/Dictation Patient condition remains critical. Still requiring full ventilator support. Also requiring low-dose dopamine for blood pressure maintenance. Patient however is completely awake and responsive to commands. Exam; elderly woman, orally intubated. Currently in no distress. Awake and alert. Exam/Review of Systems Vital Signs Vitals Vital Signs Date Time Temp Pulse Resp B/P Pulse Ox O2 Delivery O2 Flow Rate FiO2 10/08/16 09:30 86 17 111/56 100 10/08/16 09:00 Mechanical Ventilator 10/08/16 08:00 98.1 10/08/16 08:00 30 Intake and Output 10/07/16 10/07/16 10/08/16 15:00 23:00 07:00 Intake Total 608.00 ml 587.75 ml 431.750 ml Output Total 2450 ml 315 ml 385 ml Balance -1842.00 ml 272.75 ml 46.750 ml Exam HEENT exam; supple neck, positive JVD. No lymphadenopathy. Midline trachea. No thyromegaly. Orally intubated. No neck masses. Chest exam is; diminished but clear breath sounds bilaterally. S1-S2 audible, no murmurs. Regular rhythm. Abdomen examination; soft, nondistended. Bowel sounds audible. Extremity exam; 1+ generalized edema. Pulses 1+ bilaterally. There are multiple ecchymosis involving all 4 extremities. PERSONNEL ANALYST examination; patient is awake alert follows Simple commands but has severe generalized weakness. Results Result Diagram: 10/08/16 0530 10/08/16 0530 Results 24 hrs Laboratory Tests Test 10/07/16 11:09 10/07/16 12:38 10/07/16 14:09 10/07/16 15:56 Bedside Glucose 133 111 109 115 Test 10/07/16 17:53 10/07/16 20:15 10/07/16 21:04 10/07/16 22:08 Bedside Glucose 145 153 157 187 Test 10/07/16 23:03 10/08/16 00:03 10/08/16 01:01 10/08/16 02:07 Bedside Glucose 152 191 188 159 Test 10/08/16 03:08 10/08/16 03:50 10/08/16 04:59 10/08/16 05:30 Bedside Glucose 139 124 107 White Blood Count 18.3 H Red Blood Count 3.05 L Hemoglobin 8.7 L Hematocrit 28.7 L Mean Corpuscular Volume 94.1 Mean Corpuscular Hemoglobin 28.5 L Mean Corpuscular Hemoglobin Concent 30.3 L Red Cell Distribution Width 22.3 H Platelet Count 101 L Mean Platelet Volume 12.1 H Neutrophils % 87.2 H Lymphocytes % 4.9 L Monocytes % 6.3 Eosinophils % 0.5 Basophils % 0.1 Nucleated Red Blood Cells % 1.1 H Neutrophils # 16.0 H Lymphocytes # 0.9 Monocytes # 1.2 H Eosinophils # 0.1 Basophils # 0.0 Nucleated Red Blood Cells # 0.2 H Sodium Level 142 Potassium Level 3.5 Chloride Level 103 Carbon Dioxide Level 26 Anion Gap 17 H Blood Urea Nitrogen 98 H Creatinine 3.86 H Glucose Level 111 Calcium Level 7.8 L Phosphorus Level 5.7 H Magnesium Level 2.2 Total Bilirubin 0.3 Direct Bilirubin 0.00 Indirect Bilirubin 0.3 Aspartate Amino Transf (AST/SGOT) 243 H Alanine Aminotransferase (ALT/SGPT) 239 H Alkaline Phosphatase 352 H Total Protein 5.4 L Albumin 2.3 L Globulin 3.10 Albumin/Globulin Ratio 0.74 Test 10/08/16 06:02 10/08/16 06:56 10/08/16 07:35 Bedside Glucose 105 119 143 Medications Medications Current Medications Miscellaneous Information 1 ea NOTE XX ; Start 09/20/16 at 22:00 Glucose (Glutose) 15 gm Q15M PRN PO DECREASED GLUCOSE; Start 09/20/16 at 22:00 Glucose (Glutose) 22.5 gm Q15M PRN PO DECREASED GLUCOSE; Start 09/20/16 at 22: 00 Glucagon (Glucagen) 1 mg Q15M PRN IM DECREASED GLUCOSE; Start 09/20/16 at 22:00 Glucose (Glutose) 15 gm Q15M PRN BUCCAL DECREASED GLUCOSE; Start 09/20/16 at 22 :00 Acetaminophen (Tylenol Liquid) 650 mg Q4H PRN NGT PAIN AND OR ELEVATED TEMP Last administered on 09/27/16 05:14; Admin Dose 650 MG; Start 09/21/16 at 02:00 Eye Lubricant (Artificial Tears Oph) 2 drop QID BOTH EYES Last administered on 10/08/16 08:35; Admin Dose 2 DROP; Start 09/21/16 at 09:00 Dextrose (D50w Syringe) 25 ml Q15M PRN IV Till BS 80 mg/dL or above x2; Start 09/21/16 at 08:00 Dextrose (D50w Syringe) 50 ml Q15M PRN IV Till BS 80 mg/dL or above x2; Start 09/21/16 at 08:00 Atorvastatin Calcium (Lipitor) 80 mg HS NGT Last administered on 10/07/16 21:11 ; Admin Dose 80 MG; Start 09/22/16 at 21:00 Insulin Aspart (Novolog Insulin Pen) NOVOLOG *MILD* ALGORI... Q4 SC Last administered on 10/05/16 16:53; Admin Dose 7 UNIT; Start 09/25/16 at 13:00; Status Future Hold Pantoprazole (Protonix Iv) 40 mg AM IV Last administered on 10/08/16 08:26; Admin Dose 40 MG; Start 09/26/16 at 09:00 Epoetin Raj (Epogen (Esrd)) 10,000 units TuThSa@17 SC Last administered on 10/05 17:12; Admin Dose 10,000 UNITS; Start 09/26/16 at 17:00 IV Flush (NS 10 ml) 10 ml PRN PRN IV IV PROTOCOL; Start 09/26/16 at 17:30 Aspirin (Aspirin) 81 mg DAILY NGT Last administered on 10/08/16 08:26; Admin Dose 81 MG; Start 09/27/16 at 09:00 Clopidogrel Bisulfate 75 mg 75 mg DAILY NGT Last administered on 10/08/16 08:26 ; Admin Dose 75 MG; Start 09/27/16 at 09:00 Piperacillin Sod/ Tazobactam Sod (Zosyn 2.25gm/ 50ml (Pmx)) 50 ml @ 100 mls/hr Q8 IVPB Last administered on 10/08/16 06:05; Admin Dose 100 MLS/HR; Start 09/28 at 14:00 Morphine Sulfate (morphine) 2 mg Q4H PRN IV PAIN Last administered on 10/08/16 03:06; Admin Dose 2 MG; Start 09/28/16 at 16:00 Sodium Biphosphate/ Sodium Phosphate 133 ml 133 ml DAILY PRN [place] CONSTIPATION; Start 10/01/16 at 17:00 Norepinephrine/ Dextrose (Levophed/D5W) 500 ml @ 1.87 mls/hr TITRATE IV ; Start 10/04/16 at 07:00 Fluconazole (Diflucan) 100 mg DAILY GTB Last administered on 10/08/16 08:26; Admin Dose 100 MG; Start 10/05/16 at 09:00 Dextrose (D50w Syringe) 25 ml Q15M PRN IV Till BS 80 mg/dL or above x2; Start 10/05/16 at 17:30 Dextrose (D50w Syringe) 50 ml Q15M PRN IV Till BS 80 mg/dL or above x2; Start 10/05/16 at 17:30 Insulin Glargine (Lantus) 50 unit DAILY@08 SC Last administered on 10/08/16 08: 34; Admin Dose 50 UNIT; Start 10/06/16 at 08:00 Diagnostic Test (Pha) 1 ea 1 ea Q1H XX Last administered on 10/08/16 08:23; Admin Dose 1 EA; Start 10/05/16 at 19:00 Midazolam HCl 50 ml @ 1 mls/hr TITRATE IV Last administered on 10/07/16 09:47; Admin Dose 3 MLS/HR; Start 10/07/16 at 10:00 Dopamine HCl/ Dextrose 250 ml @ 7.5 mls/hr TITRATE IV Last administered on 10/07 11:00; Admin Dose 37.5 MLS/HR; Start 10/07/16 at 11:30 ADIS CAMACHO Oct 08, 2016 10:16
--- NOTE | 2016-10-08 11:48 | RADRPT ---
PROCEDURE: XR Chest. CLINICAL INDICATION: Shortness of breath. TECHNIQUE: Single frontal view. COMPARISON: 10/07/2016. FINDINGS: The endotracheal tube, nasogastric tube, and left arm PICC line are in satisfactory position. There is marked improvement in the aeration of the right lung with only mild atelectasis remaining i n the upper zone and at the right lung base. The left lung remains clear. The heart size is normal. There is no pleural effusion. There is no pneumothorax. IMPRESSION: 1. Marked improvement in the aeration of the right lung. 2. No other change from 10/07/2016. RPTAT: QQ .Arnaldo Back MD, MD Date Time Electronically viewed and signed by .Arnaldo Back MD, MD on 10/08/2016 11:47 .R/
--- NOTE | 2016-10-08 13:07 | PN ---
DATE: SUBJECTIVE: There has been no change in Ms. Danielle's clinical course. She remains intubated on h emodialysis, is by the bedside. When awakened, she does follow commands, but she is delirio us. I had a conversation with patient's and answered his questions concerning her current clinic al course and the treatment plan. At this time, I do not believe it would be advisable to address c ode status now. I will continue to support them though. Dictated By: DYLAN GIBBONS MD, LP/JERROD Conf#: [id number] DID#: [id number]
[2016-10-08 13:11] LABS: AADO2 Arterial 87.1 mmHg (7.0-24.0); Allen Test ACCEPTAB; Arterial Base Excess -2.9 mmol/L (-3.0-3); Arterial COHb 0.3 % (0.0-3.0); Arterial Fraction of Oxyhgb 92.9 % (93.0-99.0); Arterial HCO3 22.7 mmol/L (22.0-26.0); Arterial MetHb 0.4 % (0.0-1.5); Arterial Total Hemglobin 11.3 g/dl (12.0-18.0); Blood Gas PS 10; MODE VENT - CPAP
--- NOTE | 2016-10-08 13:13 | PN ---
DATE: 10/08/2016 SUBJECTIVE: No events overnight. The patient is awake on CPAP, looks comfortable, no fevers. LABORATORY DATA: WBC 18.3, H and H 8.7 and 28.7, platelets 101, neutrophils 87.2. BUN 98, creatini ne 3.86. DIAGNOSTICS: Chest x-ray this morning revealed improvement aeration of the right lung. INDWELLINGS: Endotracheal tube, NG tube, Rivas catheter, right femoral Maninder catheter and PICC li ne placed on 09/26/2016. ANTIMICROBIALS: The patient is on 1. Fluconazole. 2. Zosyn day #11. PHYSICAL EXAMINATION: GENERAL: This is a morbidly obese elderly woman who is awake, in no distress. HEENT: Head atraumatic, normocephalic. Sclerae anicteric. Buccal mucosa dry. NECK: Supple, trachea midline. CHEST: Rise symmetrical. Breath sounds diminished. HEART: S1, S2. ABDOMEN: Soft. Bowel sounds present. EXTREMITIES: With trace edema, bilateral cyanotic toes. ASSESSMENT: 1. Sepsis, resolving. 2. Healthcare-associated pneumonia with right lung atelectasis, status post bronchoscopy and sputum culture growing Escherichia coli. 3. Acute on chronic kidney disease, hemodialysis dependent. 4. Symptomatic bradycardia. Remains on dopamine. 5. Morbid obesity. 6. Erica albicans urinary tract infection. 7. Status post cardiopulmonary arrest. PLAN: The patient remains stable. We are going to complete her antibiotics. Await for bronchoalve olar cultures. Continue weaning trials as per pulmonary. Dictated By: ROSALINA SIMS BRICK PICKER for NOEMI LARA/NTS Conf#: [id number] DID#: [id number]
[2016-10-08] MEDS ORDERED: ALBUMIN HUMAN 25% 100 ML IV ONE (14:30)
--- NOTE | 2016-10-08 14:38 | PN ---
Date/Time of Note Date/Time of Note DATE: 10/08/16 TIME: 14:31 Assessment/Plan VTE Prophylaxis VTE Prophylaxis Intervention: other (on asa & plavix) Lines/Catheters IV Catheter Type (from Nrsg): PICC Line Central line still needed: No Urinary Cath still in place: Yes Reason Cath still needed: terminal illness/intractable pain Assessment/Plan Assessment/Plan 1. cad--s/p 2x cardiac arrest/ low bp/ pvd 2. arf--intubated/ pneumonitis w/ congestion--better after yest bronchoscopy 3. arf--dialysis/ making urine/ anemia/ edema 4. ams--awakening more 5. dm 6. obesity 7. musc weakl ---per cards ---per pulm ---per renal ---per ID ---cont all supportive cares ---cont iv atbx ---will try to wean off vent/ all iv drip meds again ---once extubated, will try full phys rx/ occ rx again Subjective 24 Hr Interval Summary Free Text/Dictation intubated, more awake, min responsive w/ eyes/ fingers to commends Exam/Review of Systems Vital Signs Vitals Vital Signs Date Time Temp Pulse Resp B/P Pulse Ox O2 Delivery O2 Flow Rate FiO2 10/08/16 12:45 82 17 117/57 96 10/08/16 12:00 98.3 Mechanical Ventilator 10/08/16 11:10 30 Intake and Output 10/07/16 10/07/16 10/08/16 15:00 23:00 07:00 Intake Total 608.00 ml 587.75 ml 431.750 ml Output Total 2450 ml 315 ml 385 ml Balance -1842.00 ml 272.75 ml 46.750 ml Exam obese+ global lymphatic edema+ dec bs+ rr diast m+ a few toes blue+ Results Result Diagram: 10/08/16 0530 10/08/16 0530 Results 24 hrs Laboratory Tests Test 10/07/16 15:56 10/07/16 17:53 10/07/16 20:15 10/07/16 21:04 Bedside Glucose 115 145 153 157 Test 10/07/16 22:08 10/07/16 23:03 10/08/16 00:03 10/08/16 01:01 Bedside Glucose 187 152 191 188 Test 10/08/16 02:07 10/08/16 03:08 10/08/16 03:50 10/08/16 04:59 Bedside Glucose 159 139 124 107 Test 10/08/16 05:30 10/08/16 06:02 10/08/16 06:56 10/08/16 07:35 White Blood Count 18.3 H Red Blood Count 3.05 L Hemoglobin 8.7 L Hematocrit 28.7 L Mean Corpuscular Volume 94.1 Mean Corpuscular Hemoglobin 28.5 L Mean Corpuscular Hemoglobin Concent 30.3 L Red Cell Distribution Width 22.3 H Platelet Count 101 L Mean Platelet Volume 12.1 H Neutrophils % 87.2 H Lymphocytes % 4.9 L Monocytes % 6.3 Eosinophils % 0.5 Basophils % 0.1 Nucleated Red Blood Cells % 1.1 H Neutrophils # 16.0 H Lymphocytes # 0.9 Monocytes # 1.2 H Eosinophils # 0.1 Basophils # 0.0 Nucleated Red Blood Cells # 0.2 H Sodium Level 142 Potassium Level 3.5 Chloride Level 103 Carbon Dioxide Level 26 Anion Gap 17 H Blood Urea Nitrogen 98 H Creatinine 3.86 H Glucose Level 111 Calcium Level 7.8 L Phosphorus Level 5.7 H Magnesium Level 2.2 Total Bilirubin 0.3 Direct Bilirubin 0.00 Indirect Bilirubin 0.3 Aspartate Amino Transf (AST/SGOT) 243 H Alanine Aminotransferase (ALT/SGPT) 239 H Alkaline Phosphatase 352 H Total Protein 5.4 L Albumin 2.3 L Globulin 3.10 Albumin/Globulin Ratio 0.74 Bedside Glucose 105 119 143 Test 10/08/16 11:11 10/08/16 12:10 10/08/16 12:48 10/08/16 13:04 Bedside Glucose 181 174 130 Blood Gas Specimen Source Blood arterial Arterial Blood Date Drawn 10/08/2016 1:01:12 PM Arterial Blood pH (Temp corrected) 7.345 L Arterial Blood pCO2 (Temp correct) 42.5 Arterial Blood pO2 (Temp corrected) 76.9 L Arterial Blood HCO3 22.7 Arterial Blood Base Excess -2.9 Arterial Blood Oxygen Saturation 93.6 L Raz Test ACCEPTAB Arterial Blood Gas Puncture Site Right Radial Arterial Blood Carboxyhemoglobin 0.3 Arterial Blood Methemoglobin 0.4 Blood Gas A-a O2 Differential 87.1 H Oxyhemoglobin Percent 92.9 L Total Hemoglobin 11.3 L Blood Gas Temperature 37.0 Blood Gas Actual Respiration Rate 18 Blood Gas Modality VENT - CPAP FiO2 30.0 Blood Gas Low PEEP Setting 5.0 Blood Gas Pressure Support 10 Blood Gas Notified Whom JLD Blood Gas Notified Time 10/08/2016 1:11:42 PM Medications Medications Current Medications Miscellaneous Information 1 ea NOTE XX ; Start 09/20/16 at 22:00 Glucose (Glutose) 15 gm Q15M PRN PO DECREASED GLUCOSE; Start 09/20/16 at 22:00 Glucose (Glutose) 22.5 gm Q15M PRN PO DECREASED GLUCOSE; Start 09/20/16 at 22: 00 Glucagon (Glucagen) 1 mg Q15M PRN IM DECREASED GLUCOSE; Start 09/20/16 at 22:00 Glucose (Glutose) 15 gm Q15M PRN BUCCAL DECREASED GLUCOSE; Start 09/20/16 at 22 :00 Acetaminophen (Tylenol Liquid) 650 mg Q4H PRN NGT PAIN AND OR ELEVATED TEMP Last administered on 09/27/16 05:14; Admin Dose 650 MG; Start 09/21/16 at 02:00 Eye Lubricant (Artificial Tears Oph) 2 drop QID BOTH EYES Last administered on 10/08/16 08:35; Admin Dose 2 DROP; Start 09/21/16 at 09:00 Dextrose (D50w Syringe) 25 ml Q15M PRN IV Till BS 80 mg/dL or above x2; Start 09/21/16 at 08:00 Dextrose (D50w Syringe) 50 ml Q15M PRN IV Till BS 80 mg/dL or above x2; Start 09/21/16 at 08:00 Atorvastatin Calcium (Lipitor) 80 mg HS NGT Last administered on 10/07/16 21:11 ; Admin Dose 80 MG; Start 09/22/16 at 21:00 Insulin Aspart (Novolog Insulin Pen) NOVOLOG *MILD* ALGORI... Q4 SC Last administered on 10/05/16 16:53; Admin Dose 7 UNIT; Start 09/25/16 at 13:00; Status Future Hold Pantoprazole (Protonix Iv) 40 mg AM IV Last administered on 10/08/16 08:26; Admin Dose 40 MG; Start 09/26/16 at 09:00 Epoetin Raj (Epogen (Esrd)) 10,000 units TuThSa@17 SC Last administered on 10/05 17:12; Admin Dose 10,000 UNITS; Start 09/26/16 at 17:00 IV Flush (NS 10 ml) 10 ml PRN PRN IV IV PROTOCOL; Start 09/26/16 at 17:30 Aspirin (Aspirin) 81 mg DAILY NGT Last administered on 10/08/16 08:26; Admin Dose 81 MG; Start 09/27/16 at 09:00 Clopidogrel Bisulfate 75 mg 75 mg DAILY NGT Last administered on 10/08/16 08:26 ; Admin Dose 75 MG; Start 09/27/16 at 09:00 Piperacillin Sod/ Tazobactam Sod (Zosyn 2.25gm/ 50ml (Pmx)) 50 ml @ 100 mls/hr Q8 IVPB Last administered on 10/08/16 06:05; Admin Dose 100 MLS/HR; Start 09/28 at 14:00 Morphine Sulfate (morphine) 2 mg Q4H PRN IV PAIN Last administered on 10/08/16 03:06; Admin Dose 2 MG; Start 09/28/16 at 16:00 Sodium Biphosphate/ Sodium Phosphate 133 ml 133 ml DAILY PRN [place] CONSTIPATION; Start 10/01/16 at 17:00 Norepinephrine/ Dextrose (Levophed/D5W) 500 ml @ 1.87 mls/hr TITRATE IV ; Start 10/04/16 at 07:00 Fluconazole (Diflucan) 100 mg DAILY GTB Last administered on 10/08/16 08:26; Admin Dose 100 MG; Start 10/05/16 at 09:00 Dextrose (D50w Syringe) 25 ml Q15M PRN IV Till BS 80 mg/dL or above x2; Start 10/05/16 at 17:30 Dextrose (D50w Syringe) 50 ml Q15M PRN IV Till BS 80 mg/dL or above x2; Start 10/05/16 at 17:30 Insulin Glargine (Lantus) 50 unit DAILY@08 SC Last administered on 10/08/16 08: 34; Admin Dose 50 UNIT; Start 10/06/16 at 08:00 Diagnostic Test (Pha) 1 ea 1 ea Q1H XX Last administered on 10/08/16 08:23; Admin Dose 1 EA; Start 10/05/16 at 19:00 Midazolam HCl 50 ml @ 1 mls/hr TITRATE IV Last administered on 10/07/16 09:47; Admin Dose 3 MLS/HR; Start 10/07/16 at 10:00 Dopamine HCl/ Dextrose 250 ml @ 7.5 mls/hr TITRATE IV Last administered on 10/07 11:00; Admin Dose 37.5 MLS/HR; Start 10/07/16 at 11:30 SHAMA LOPEZ MD Oct 08, 2016 14:38
[2016-10-08] MEDS ORDERED: CALCIUM GLUCONATE 10% 2 GM in SOD CHLORIDE 0.9% 100 ML IVPB ONE (15:15)
[2016-10-08] MEDS ORDERED: AMIODARONE 150MG/D5W BOLUS 100 ML IV ONE (15:30)
[2016-10-08] MEDS ORDERED: AMIODARONE 900 MG in DEXTROSE 5% 482 ML IV SCH (16:00)
[2016-10-08] MEDS: EPOETIN 10000 UNITS/1 ML INJ (ESRD) SC SCH (16:43)
--- NOTE | 2016-10-08 17:18 | PN ---
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 I have switched albuterol to Xopenex. If a pressor is needed, would use norepinephrine or neosynephrine. Continue aspirin and clopidogrel for stent patency Atorvastatin at high dose No metoprolol for now due to relative hypotension Dialysis as per nephrology Consideration of trach as per pulmonary Prognosis guarded Subjective 24 Hr Interval Summary Free Text/Dictation Events of yesterday and today noted, patient underwent bronchoscopy, received dopamine for pressure support, today went into afib with somewhat rapid rate, received amiodarone bolus, and bp dropped slightly after that. Family including at bedside, show me that pt wrote on paper to communicate to them. At present eyes open but she is somnolent. Subjective hx not possible: pt non-verbal Exam/Review of Systems Vital Signs Vitals Vital Signs Date Time Temp Pulse Resp B/P Pulse Ox O2 Delivery O2 Flow Rate FiO2 10/08/16 16:00 96 10/08/16 15:30 16 100 30 10/08/16 15:00 97/61 Mechanical Ventilator 10/08/16 12:00 98.3 Intake and Output 10/07/16 10/07/16 10/08/16 15:00 23:00 07:00 Intake Total 608.00 ml 587.75 ml 431.750 ml Output Total 2450 ml 315 ml 385 ml Balance -1842.00 ml 272.75 ml 46.750 ml Exam Constitutional: other (arousable on vent) Head: atraumatic, normocephalic Eyes: EOMI ENMT: intubated Neck: No bruits Respiratory: clear to auscultation Cardiovascular: regular rate and rhythm, No murmurs/extra sounds Gastrointestinal: soft Extremities: edema (edema in all 4 extremities), pitting pedal edema Skin: other (blue tips of several toes) Results Result Diagram: 10/08/16 0530 10/08/16 0530 Results 24 hrs Laboratory Tests Test 10/07/16 17:53 10/07/16 20:15 10/07/16 21:04 10/07/16 22:08 Bedside Glucose 145 153 157 187 Test 10/07/16 23:03 10/08/16 00:03 10/08/16 01:01 10/08/16 02:07 Bedside Glucose 152 191 188 159 Test 10/08/16 03:08 10/08/16 03:50 10/08/16 04:59 10/08/16 05:30 Bedside Glucose 139 124 107 White Blood Count 18.3 H Red Blood Count 3.05 L Hemoglobin 8.7 L Hematocrit 28.7 L Mean Corpuscular Volume 94.1 Mean Corpuscular Hemoglobin 28.5 L Mean Corpuscular Hemoglobin Concent 30.3 L Red Cell Distribution Width 22.3 H Platelet Count 101 L Mean Platelet Volume 12.1 H Neutrophils % 87.2 H Lymphocytes % 4.9 L Monocytes % 6.3 Eosinophils % 0.5 Basophils % 0.1 Nucleated Red Blood Cells % 1.1 H Neutrophils # 16.0 H Lymphocytes # 0.9 Monocytes # 1.2 H Eosinophils # 0.1 Basophils # 0.0 Nucleated Red Blood Cells # 0.2 H Sodium Level 142 Potassium Level 3.5 Chloride Level 103 Carbon Dioxide Level 26 Anion Gap 17 H Blood Urea Nitrogen 98 H Creatinine 3.86 H Glucose Level 111 Calcium Level 7.8 L Phosphorus Level 5.7 H Magnesium Level 2.2 Total Bilirubin 0.3 Direct Bilirubin 0.00 Indirect Bilirubin 0.3 Aspartate Amino Transf (AST/SGOT) 243 H Alanine Aminotransferase (ALT/SGPT) 239 H Alkaline Phosphatase 352 H Total Protein 5.4 L Albumin 2.3 L Globulin 3.10 Albumin/Globulin Ratio 0.74 Test 10/08/16 06:02 10/08/16 06:56 10/08/16 07:35 10/08/16 11:11 Bedside Glucose 105 119 143 181 Test 10/08/16 12:10 10/08/16 12:48 10/08/16 13:04 10/08/16 14:34 Bedside Glucose 174 130 125 Blood Gas Specimen Source Blood arterial Arterial Blood Date Drawn 10/08/2016 1:01:12 PM Arterial Blood pH (Temp corrected) 7.345 L Arterial Blood pCO2 (Temp correct) 42.5 Arterial Blood pO2 (Temp corrected) 76.9 L Arterial Blood HCO3 22.7 Arterial Blood Base Excess -2.9 Arterial Blood Oxygen Saturation 93.6 L Raz Test ACCEPTAB Arterial Blood Gas Puncture Site Right Radial Arterial Blood Carboxyhemoglobin 0.3 Arterial Blood Methemoglobin 0.4 Blood Gas A-a O2 Differential 87.1 H Oxyhemoglobin Percent 92.9 L Total Hemoglobin 11.3 L Blood Gas Temperature 37.0 Blood Gas Actual Respiration Rate 18 Blood Gas Modality VENT - CPAP FiO2 30.0 Blood Gas Low PEEP Setting 5.0 Blood Gas Pressure Support 10 Blood Gas Notified Whom JLD Blood Gas Notified Time 10/08/2016 1:11:42 PM Test 10/08/16 15:00 10/08/16 16:00 10/08/16 16:46 Bedside Glucose 120 105 98 Medications Medications Current Medications Miscellaneous Information 1 ea NOTE XX ; Start 09/20/16 at 22:00 Glucose (Glutose) 15 gm Q15M PRN PO DECREASED GLUCOSE; Start 09/20/16 at 22:00 Glucose (Glutose) 22.5 gm Q15M PRN PO DECREASED GLUCOSE; Start 09/20/16 at 22: 00 Glucagon (Glucagen) 1 mg Q15M PRN IM DECREASED GLUCOSE; Start 09/20/16 at 22:00 Glucose (Glutose) 15 gm Q15M PRN BUCCAL DECREASED GLUCOSE; Start 09/20/16 at 22 :00 Acetaminophen (Tylenol Liquid) 650 mg Q4H PRN NGT PAIN AND OR ELEVATED TEMP Last administered on 09/27/16 05:14; Admin Dose 650 MG; Start 09/21/16 at 02:00 Eye Lubricant (Artificial Tears Oph) 2 drop QID BOTH EYES Last administered on 10/08/16 16:18; Admin Dose 2 DROP; Start 09/21/16 at 09:00 Dextrose (D50w Syringe) 25 ml Q15M PRN IV Till BS 80 mg/dL or above x2; Start 09/21/16 at 08:00 Dextrose (D50w Syringe) 50 ml Q15M PRN IV Till BS 80 mg/dL or above x2; Start 09/21/16 at 08:00 Atorvastatin Calcium (Lipitor) 80 mg HS NGT Last administered on 10/07/16 21:11 ; Admin Dose 80 MG; Start 09/22/16 at 21:00 Insulin Aspart (Novolog Insulin Pen) NOVOLOG *MILD* ALGORI... Q4 SC Last administered on 10/05/16 16:53; Admin Dose 7 UNIT; Start 09/25/16 at 13:00; Status Future Hold Pantoprazole (Protonix Iv) 40 mg AM IV Last administered on 10/08/16 08:26; Admin Dose 40 MG; Start 09/26/16 at 09:00 Epoetin Raj (Epogen (Esrd)) 10,000 units TuThSa@17 SC Last administered on 10/08 16:43; Admin Dose 10,000 UNITS; Start 09/26/16 at 17:00 IV Flush (NS 10 ml) 10 ml PRN PRN IV IV PROTOCOL; Start 09/26/16 at 17:30 Aspirin (Aspirin) 81 mg DAILY NGT Last administered on 10/08/16 08:26; Admin Dose 81 MG; Start 09/27/16 at 09:00 Clopidogrel Bisulfate 75 mg 75 mg DAILY NGT Last administered on 10/08/16 08:26 ; Admin Dose 75 MG; Start 09/27/16 at 09:00 Piperacillin Sod/ Tazobactam Sod (Zosyn 2.25gm/ 50ml (Pmx)) 50 ml @ 100 mls/hr Q8 IVPB Last administered on 10/08/16 14:49; Admin Dose 100 MLS/HR; Start 09/28 at 14:00 Morphine Sulfate (morphine) 2 mg Q4H PRN IV PAIN Last administered on 10/08/16 03:06; Admin Dose 2 MG; Start 09/28/16 at 16:00 Sodium Biphosphate/ Sodium Phosphate 133 ml 133 ml DAILY PRN [place] CONSTIPATION; Start 10/01/16 at 17:00 Norepinephrine/ Dextrose (Levophed/D5W) 500 ml @ 1.87 mls/hr TITRATE IV ; Start 10/04/16 at 07:00 Fluconazole (Diflucan) 100 mg DAILY GTB Last administered on 10/08/16 08:26; Admin Dose 100 MG; Start 10/05/16 at 09:00 Dextrose (D50w Syringe) 25 ml Q15M PRN IV Till BS 80 mg/dL or above x2; Start 10/05/16 at 17:30 Dextrose (D50w Syringe) 50 ml Q15M PRN IV Till BS 80 mg/dL or above x2; Start 10/05/16 at 17:30 Insulin Glargine (Lantus) 50 unit DAILY@08 SC Last administered on 10/08/16 08: 34; Admin Dose 50 UNIT; Start 10/06/16 at 08:00 Diagnostic Test (Pha) 1 ea 1 ea Q1H XX Last administered on 10/08/16 16:48; Admin Dose 1 EA; Start 10/05/16 at 19:00 Midazolam HCl 50 ml @ 1 mls/hr TITRATE IV Last administered on 10/07/16 09:47; Admin Dose 3 MLS/HR; Start 10/07/16 at 10:00 Dopamine HCl/ Dextrose 250 ml @ 7.5 mls/hr TITRATE IV Last administered on 10/07 11:00; Admin Dose 37.5 MLS/HR; Start 10/07/16 at 11:30 Calcium Gluconate 2 gm/Sodium Chloride 120 ml @ 60 mls/hr ONCE ONCE IVPB Last administered on 10/08/16 16:40; Admin Dose 60 MLS/HR; Start 10/08/16 at 15: 15; Stop 10/08/16 at 17:14 Amiodarone HCl/ Dextrose (Cordarone Iv/ D5W) 500 ml @ 0 mls/hr Q0M IV ; Start at 16:00; Stop 10/09/16 at 15:59; Status Future Hold BENJAMIN OSEGUERA Oct 08, 2016 17:18
[2016-10-08] MEDS ORDERED: LEVALBUTEROL (NEB) 0.63 MG/3 ML AMP HHN SCH (20:00)
[2016-10-08] MEDS: ATORVASTATIN 80 MG TAB NGT SCH (21:12)
[2016-10-09] VITALS (47 sets, daily range): BP systolic 76–118; BP diastolic 46–94; PULSE 62–91; RESP 13–20
[2016-10-09] MEDS: ACCU-CHEK XX SCH ×10 (00:36→18:28)
[2016-10-09] MEDS: ACETYLCYSTEINE 20% 4 ML VIAL NEB SCH ×4 (01:30→19:45)
[2016-10-09] MEDS: LEVALBUTEROL (HFA) 15 GM INHALER INH SCH ×4 (01:30→19:42)
[2016-10-09] MEDS: IPRATROPIUM (HFA) 12.9 GM INHALER INH SCH ×4 (01:30→19:42)
[2016-10-09 04:57] LABS: ADD SCAN DIFF NO
[2016-10-09] MEDS: PIPER-TAZO 2.25 GM (PMX) 50 ML IVPB SCH ×3 (05:13→21:16)
[2016-10-09 05:27] LABS: ABNORMAL IP MESSAGE 1; BASOPHILS % 0.1 % (0.0-2.0); EOSINOPHILS # 0.1 10^3/ul (0.0-0.5); EOSINOPHILS % 0.8 % (0.0-7.0); HEMATOCRIT 27.4 % (37.0-47.0); HEMOGLOBIN 8.4 g/dl (12.0-16.0); LYMPHOCYTES # 1.1 10^3/ul (0.8-2.9); LYMPHOCYTES % 7.4 % (15.0-51.0); MEAN CORPUSCULAR HEMOGLOBIN 29.4 pg (29.0-33.0); MEAN CORPUSCULAR HGB CONC 30.7 g/dl (32.0-37.0); MEAN CORPUSCULAR VOLUME 95.8 fl (82.0-101.0); MEAN PLATELET VOLUME 12.4 fl (7.4-10.4); MONOCYTE # 0.8 10^3/ul (0.3-0.9); MONOCYTES % 5.5 % (0.0-11.0); NEUTROPHIL # 12.8 10^3/ul (1.6-7.5); NEUTROPHILS % 85.6 % (39.0-77.0); NUCLEATED RED BLOOD CELLS # 0.1 10^3/ul (0.0-0.0); NUCLEATED RED BLOOD CELLS% 0.5 /100WBC (0.0-0.0); PLATELET COUNT 109 10^3/UL (140-415); RED BLOOD COUNT 2.86 10^6/ul (4.20-5.40); RED CELL DISTRIBUTION WIDTH 23.5 % (11.5-14.5); WHITE BLOOD COUNT 14.9 10^3/ul (4.8-10.8)
[2016-10-09 05:28] LABS: ALBUMIN 2.5 g/dl (3.3-4.9)
[2016-10-09 05:29] LABS: POTASSIUM 3.8 mmol/L (3.5-5.1)
[2016-10-09 05:31] LABS: ALBUMIN/GLOBULIN RATIO 0.86; BILIRUBIN,DIRECT 0.1 mg/dl (0.00-0.20); BILIRUBIN,INDIRECT 0.3 mg/dl (0-1.1); BILIRUBIN,TOTAL 0.4 mg/dl (0.2-1.3); TOTAL PROTEIN 5.4 g/dl (6.1-8.1)
[2016-10-09 05:32] LABS: CALCIUM 7.9 mg/dl (8.4-10.2)
[2016-10-09 05:59] LABS: CREATININE 3.99 mg/dl (0.44-1.00)
--- NOTE | 2016-10-09 08:16 | CONS ---
Date/Time of Note Date/Time of Note DATE: 10/09/16 TIME: 08:12 Assessment/Plan Assessment/Plan Chief Complaint/Hosp Course 1. Acute Renal Failure due to ATN , nonoliguric . Her the N is high. I will order a hemodialysis for today and she will probably need tomorrow. She is maintaining a good blood pressure off pressors. 2. ALOC , she is improved and responsive 3. liver enzyme elevation due to anoxia , enzymes are decreasing . 4. hypotension , she is now normotensive all pressors. 5. hypocalcemia/hypoalbuminemia , her calcium level has increased. 6. anemia , she has not had any recent GI bleeding , blood transfused with last dialysis . 7. peripheral vascular disease . 8. respiratory failure , ventilator dependent . Problems: Consultation Date/Type/Reason Admit Date/Time Sep 20, 2016 at 19:21 Initial Consult Date 09/23/16 Type of Consultation: Pulmonary/critical care Referring Provider: [facility]DRA ROBISON [facility], [facility] Interval Summary Free Text/Dictation This patient is in the ICU, intubated, on a ventilator. She is lethargic but does arouse easily to verbal stimuli and is responsive. Subjective hx not possible: pt non-verbal Exam/Review of Systems Vital Signs Vitals Vital Signs Date Time Temp Pulse Resp B/P Pulse Ox O2 Delivery O2 Flow Rate FiO2 10/09/16 06:00 71 16 110/51 100 10/09/16 05:07 30 10/09/16 05:00 Mechanical Ventilator 10/09/16 04:00 97.2 Intake and Output 10/08/16 10/08/16 10/09/16 15:00 23:00 07:00 Intake Total 553.50 ml 639.5 ml 335.0 ml Output Total 30 ml 210 ml 311 ml Balance 523.50 ml 429.5 ml 24.0 ml Exam Constitutional: alert Respiratory: clear to auscultation, diminished breath sounds Cardiovascular: regular rate and rhythm Gastrointestinal: soft Extremities: edema Results Result Diagram: 10/09/16 0450 10/09/16 0450 Results 24 hrs Laboratory Tests Test 10/08/16 11:11 10/08/16 12:10 10/08/16 12:48 10/08/16 13:04 Bedside Glucose 181 174 130 Blood Gas Specimen Source Blood arterial Arterial Blood Date Drawn 10/08/2016 1:01:12 PM Arterial Blood pH (Temp corrected) 7.345 L Arterial Blood pCO2 (Temp correct) 42.5 Arterial Blood pO2 (Temp corrected) 76.9 L Arterial Blood HCO3 22.7 Arterial Blood Base Excess -2.9 Arterial Blood Oxygen Saturation 93.6 L Raz Test ACCEPTAB Arterial Blood Gas Puncture Site Right Radial Arterial Blood Carboxyhemoglobin 0.3 Arterial Blood Methemoglobin 0.4 Blood Gas A-a O2 Differential 87.1 H Oxyhemoglobin Percent 92.9 L Total Hemoglobin 11.3 L Blood Gas Temperature 37.0 Blood Gas Actual Respiration Rate 18 Blood Gas Modality VENT - CPAP FiO2 30.0 Blood Gas Low PEEP Setting 5.0 Blood Gas Pressure Support 10 Blood Gas Notified Whom JLD Blood Gas Notified Time 10/08/2016 1:11:42 PM Test 10/08/16 14:34 10/08/16 15:00 10/08/16 16:00 10/08/16 16:46 Bedside Glucose 125 120 105 98 Test 10/08/16 17:54 10/08/16 20:05 10/08/16 21:04 10/08/16 22:02 Bedside Glucose 110 116 117 129 Test 10/08/16 23:59 10/09/16 02:14 10/09/16 04:04 10/09/16 04:50 Bedside Glucose 148 131 126 White Blood Count 14.9 H Red Blood Count 2.86 L Hemoglobin 8.4 L Hematocrit 27.4 L Mean Corpuscular Volume 95.8 Mean Corpuscular Hemoglobin 29.4 Mean Corpuscular Hemoglobin Concent 30.7 L Red Cell Distribution Width 23.5 H Platelet Count 109 L Mean Platelet Volume 12.4 H Neutrophils % 85.6 H Lymphocytes % 7.4 L Monocytes % 5.5 Eosinophils % 0.8 Basophils % 0.1 Nucleated Red Blood Cells % 0.5 H Neutrophils # 12.8 H Lymphocytes # 1.1 Monocytes # 0.8 Eosinophils # 0.1 Basophils # 0.0 Nucleated Red Blood Cells # 0.1 H Sodium Level 140 Potassium Level 3.8 Chloride Level 106 Carbon Dioxide Level 23 Anion Gap 15 Blood Urea Nitrogen 114 H Creatinine 3.99 H Glucose Level 121 Calcium Level 7.9 L Total Bilirubin 0.4 Direct Bilirubin 0.10 Indirect Bilirubin 0.3 Aspartate Amino Transf (AST/SGOT) 324 H Alanine Aminotransferase (ALT/SGPT) 229 H Alkaline Phosphatase 369 H Total Protein 5.4 L Albumin 2.5 L Globulin 2.90 Albumin/Globulin Ratio 0.86 Test 10/09/16 06:09 Bedside Glucose 115 Medications Medications Current Medications Miscellaneous Information 1 ea NOTE XX ; Start 09/20/16 at 22:00 Glucose (Glutose) 15 gm Q15M PRN PO DECREASED GLUCOSE; Start 09/20/16 at 22:00 Glucose (Glutose) 22.5 gm Q15M PRN PO DECREASED GLUCOSE; Start 09/20/16 at 22: 00 Glucagon (Glucagen) 1 mg Q15M PRN IM DECREASED GLUCOSE; Start 09/20/16 at 22:00 Glucose (Glutose) 15 gm Q15M PRN BUCCAL DECREASED GLUCOSE; Start 09/20/16 at 22 :00 Acetaminophen (Tylenol Liquid) 650 mg Q4H PRN NGT PAIN AND OR ELEVATED TEMP Last administered on 09/27/16 05:14; Admin Dose 650 MG; Start 09/21/16 at 02:00 Eye Lubricant (Artificial Tears Oph) 2 drop QID BOTH EYES Last administered on 10/08/16 21:13; Admin Dose 2 DROP; Start 09/21/16 at 09:00 Dextrose (D50w Syringe) 25 ml Q15M PRN IV Till BS 80 mg/dL or above x2; Start 09/21/16 at 08:00 Dextrose (D50w Syringe) 50 ml Q15M PRN IV Till BS 80 mg/dL or above x2; Start 09/21/16 at 08:00 Atorvastatin Calcium (Lipitor) 80 mg HS NGT Last administered on 10/08/16 21:12 ; Admin Dose 80 MG; Start 09/22/16 at 21:00 Insulin Aspart (Novolog Insulin Pen) NOVOLOG *MILD* ALGORI... Q4 SC Last administered on 10/05/16 16:53; Admin Dose 7 UNIT; Start 09/25/16 at 13:00; Status Future Hold Pantoprazole (Protonix Iv) 40 mg AM IV Last administered on 10/08/16 08:26; Admin Dose 40 MG; Start 09/26/16 at 09:00 Epoetin Raj (Epogen (Esrd)) 10,000 units TuThSa@17 SC Last administered on 10/08 16:43; Admin Dose 10,000 UNITS; Start 09/26/16 at 17:00 IV Flush (NS 10 ml) 10 ml PRN PRN IV IV PROTOCOL; Start 09/26/16 at 17:30 Aspirin (Aspirin) 81 mg DAILY NGT Last administered on 10/08/16 08:26; Admin Dose 81 MG; Start 09/27/16 at 09:00 Clopidogrel Bisulfate 75 mg 75 mg DAILY NGT Last administered on 10/08/16 08:26 ; Admin Dose 75 MG; Start 09/27/16 at 09:00 Piperacillin Sod/ Tazobactam Sod (Zosyn 2.25gm/ 50ml (Pmx)) 50 ml @ 100 mls/hr Q8 IVPB Last administered on 10/09/16 05:13; Admin Dose 100 MLS/HR; Start 09/28 at 14:00 Morphine Sulfate (morphine) 2 mg Q4H PRN IV PAIN Last administered on 10/08/16 03:06; Admin Dose 2 MG; Start 09/28/16 at 16:00 Sodium Biphosphate/ Sodium Phosphate 133 ml 133 ml DAILY PRN [place] CONSTIPATION Last administered on 10/09/16 00:50; Admin Dose 133 ML; Start 10/01/16 at 17:00 Norepinephrine/ Dextrose (Levophed/D5W) 500 ml @ 1.87 mls/hr TITRATE IV ; Start 10/04/16 at 07:00 Fluconazole (Diflucan) 100 mg DAILY GTB Last administered on 10/08/16 08:26; Admin Dose 100 MG; Start 10/05/16 at 09:00 Dextrose (D50w Syringe) 25 ml Q15M PRN IV Till BS 80 mg/dL or above x2; Start 10/05/16 at 17:30 Dextrose (D50w Syringe) 50 ml Q15M PRN IV Till BS 80 mg/dL or above x2; Start 10/05/16 at 17:30 Insulin Glargine (Lantus) 50 unit DAILY@08 SC Last administered on 10/08/16 08: 34; Admin Dose 50 UNIT; Start 10/06/16 at 08:00 Diagnostic Test (Pha) 1 ea 1 ea Q1H XX Last administered on 10/09/16 06:17; Admin Dose 1 EA; Start 10/05/16 at 19:00 Midazolam HCl 50 ml @ 1 mls/hr TITRATE IV Last administered on 10/07/16 09:47; Admin Dose 3 MLS/HR; Start 10/07/16 at 10:00 Dopamine HCl/ Dextrose 250 ml @ 7.5 mls/hr TITRATE IV Last administered on 10/07 11:00; Admin Dose 37.5 MLS/HR; Start 10/07/16 at 11:30 Amiodarone HCl/ Dextrose (Cordarone Iv/ D5W) 500 ml @ 0 mls/hr Q0M IV ; Start at 16:00; Stop 10/09/16 at 15:59; Status Future Hold DAMIR MARTINEZ MD Oct 09, 2016 08:16
[2016-10-09] MEDS: INSULIN REGULAR, HUMAN 100 UNIT in SOD CHLORIDE 0.9% 99 ML IV SCH ×2 (08:18)
[2016-10-09] MEDS: PANTOPRAZOLE 40 MG INJ IV SCH (08:20)
[2016-10-09] MEDS: INSULIN GLARGINE [LANtus] 3 ML PEN SC SCH (08:20)
[2016-10-09] MEDS: CLOPIDOGREL 75 MG TAB NGT SCH (08:21)
[2016-10-09] MEDS: ASPIRIN 81 MG TAB NGT SCH (08:21)
[2016-10-09] MEDS: ARTIFICIAL TEARS 15 ML OPH BOTH EYES SCH ×4 (08:21→21:17)
[2016-10-09] MEDS: FLUCONAZOLE 100 MG TAB GTB SCH (08:21)
--- NOTE | 2016-10-09 09:48 | CONS ---
Date/Time of Note Date/Time of Note DATE: 10/09/16 TIME: 09:45 Assessment/Plan Assessment/Plan Additional Assessment/Plan Ventilator settings; AC of 16, tidal volume 500, PEEP of 5, 30% FiO2. Assessment and recommendations; 1. Patient admitted with acute UT and acute renal failure leading to respiratory failure. 2. Severe anasarca patient on hemodialysis. 3. Pneumonia. 4. Complete atelectasis of the right lung status post bronchoscopy with marked radiological improvement. 5. Paroxysmal atrial fibrillation, currently in sinus rhythm. 6. Failure to be weaned from ventilator despite multiple attempts. Continue current treatment. Patient will be undergoing hemodialysis today. Another weaning trial will be attempted in 24 hours from mechanical ventilation. I did have a detailed discussion the patient's at bedside and answered all his questions. Consultation Date/Type/Reason Admit Date/Time Sep 20, 2016 at 19:21 Initial Consult Date 09/23/16 Type of Consultation: Pulmonary/critical care Referring Provider: ZANDRA ROBISON MD, [facility] 24 HR Interval Summary Free Text/Dictation Patient condition remains critical. Remains ventilator dependent. The patient was given a weaning trial yesterday however on CPAP or she went into A. fib with RVR and had to be reverted back to assist control mode. Currently the patient is completely awake alert follows commands moves all 4 extremities but is still having significant muscular weakness. He remains grossly edematous. General exam; elderly lady, or intubated, awake and alert currently in no distress. Exam/Review of Systems Vital Signs Vitals Vital Signs Date Time Temp Pulse Resp B/P Pulse Ox O2 Delivery O2 Flow Rate FiO2 10/09/16 06:00 71 16 110/51 100 10/09/16 05:07 30 10/09/16 05:00 Mechanical Ventilator 10/09/16 04:00 97.2 Intake and Output 10/08/16 10/08/16 10/09/16 15:00 23:00 07:00 Intake Total 553.50 ml 639.5 ml 336.0 ml Output Total 30 ml 210 ml 311 ml Balance 523.50 ml 429.5 ml 25.0 ml Exam HEENT exam is; supple neck, no JVD. No lymphadenopathy. Midline trachea. Pupils are equal and reactive to light bilaterally. Extraocular movements are intact. Orally intubated. No neck masses. No thyromegaly. Chest examination; diminished but clear breath sounds. S1-S2 audible, no murmurs. Regular rhythm. Abdomen examination; soft, nondistended. Bowel sounds audible. Nontender. Extremity exam is; 2+ anasarca. Pulses 1+ bilaterally. There is gangrene involving toes bilaterally. Vertebral ecchymoses are present in all 4 extremities. BROKER exam is; patient is awake alert follows commands moves all 4 extremities. Results Result Diagram: 10/09/16 0450 10/09/16 0450 Results 24 hrs Laboratory Tests Test 10/08/16 11:11 10/08/16 12:10 10/08/16 12:48 10/08/16 13:04 Bedside Glucose 181 174 130 Blood Gas Specimen Source Blood arterial Arterial Blood Date Drawn 10/08/2016 1:01:12 PM Arterial Blood pH (Temp corrected) 7.345 L Arterial Blood pCO2 (Temp correct) 42.5 Arterial Blood pO2 (Temp corrected) 76.9 L Arterial Blood HCO3 22.7 Arterial Blood Base Excess -2.9 Arterial Blood Oxygen Saturation 93.6 L Raz Test ACCEPTAB Arterial Blood Gas Puncture Site Right Radial Arterial Blood Carboxyhemoglobin 0.3 Arterial Blood Methemoglobin 0.4 Blood Gas A-a O2 Differential 87.1 H Oxyhemoglobin Percent 92.9 L Total Hemoglobin 11.3 L Blood Gas Temperature 37.0 Blood Gas Actual Respiration Rate 18 Blood Gas Modality VENT - CPAP FiO2 30.0 Blood Gas Low PEEP Setting 5.0 Blood Gas Pressure Support 10 Blood Gas Notified Whom JLD Blood Gas Notified Time 10/08/2016 1:11:42 PM Test 10/08/16 14:34 10/08/16 15:00 10/08/16 16:00 10/08/16 16:46 Bedside Glucose 125 120 105 98 Test 10/08/16 17:54 10/08/16 20:05 10/08/16 21:04 10/08/16 22:02 Bedside Glucose 110 116 117 129 Test 10/08/16 23:59 10/09/16 02:14 10/09/16 04:04 10/09/16 04:50 Bedside Glucose 148 131 126 White Blood Count 14.9 H Red Blood Count 2.86 L Hemoglobin 8.4 L Hematocrit 27.4 L Mean Corpuscular Volume 95.8 Mean Corpuscular Hemoglobin 29.4 Mean Corpuscular Hemoglobin Concent 30.7 L Red Cell Distribution Width 23.5 H Platelet Count 109 L Mean Platelet Volume 12.4 H Neutrophils % 85.6 H Lymphocytes % 7.4 L Monocytes % 5.5 Eosinophils % 0.8 Basophils % 0.1 Nucleated Red Blood Cells % 0.5 H Neutrophils # 12.8 H Lymphocytes # 1.1 Monocytes # 0.8 Eosinophils # 0.1 Basophils # 0.0 Nucleated Red Blood Cells # 0.1 H Sodium Level 140 Potassium Level 3.8 Chloride Level 106 Carbon Dioxide Level 23 Anion Gap 15 Blood Urea Nitrogen 114 H Creatinine 3.99 H Glucose Level 121 Calcium Level 7.9 L Total Bilirubin 0.4 Direct Bilirubin 0.10 Indirect Bilirubin 0.3 Aspartate Amino Transf (AST/SGOT) 324 H Alanine Aminotransferase (ALT/SGPT) 229 H Alkaline Phosphatase 369 H Total Protein 5.4 L Albumin 2.5 L Globulin 2.90 Albumin/Globulin Ratio 0.86 Test 10/09/16 06:09 10/09/16 08:07 Bedside Glucose 115 131 Medications Medications Current Medications Miscellaneous Information 1 ea NOTE XX ; Start 09/20/16 at 22:00 Glucose (Glutose) 15 gm Q15M PRN PO DECREASED GLUCOSE; Start 09/20/16 at 22:00 Glucose (Glutose) 22.5 gm Q15M PRN PO DECREASED GLUCOSE; Start 09/20/16 at 22: 00 Glucagon (Glucagen) 1 mg Q15M PRN IM DECREASED GLUCOSE; Start 09/20/16 at 22:00 Glucose (Glutose) 15 gm Q15M PRN BUCCAL DECREASED GLUCOSE; Start 09/20/16 at 22 :00 Acetaminophen (Tylenol Liquid) 650 mg Q4H PRN NGT PAIN AND OR ELEVATED TEMP Last administered on 09/27/16 05:14; Admin Dose 650 MG; Start 09/21/16 at 02:00 Eye Lubricant (Artificial Tears Oph) 2 drop QID BOTH EYES Last administered on 10/09/16 08:21; Admin Dose 2 DROP; Start 09/21/16 at 09:00 Dextrose (D50w Syringe) 25 ml Q15M PRN IV Till BS 80 mg/dL or above x2; Start 09/21/16 at 08:00 Dextrose (D50w Syringe) 50 ml Q15M PRN IV Till BS 80 mg/dL or above x2; Start 09/21/16 at 08:00 Atorvastatin Calcium (Lipitor) 80 mg HS NGT Last administered on 10/08/16 21:12 ; Admin Dose 80 MG; Start 09/22/16 at 21:00 Insulin Aspart (Novolog Insulin Pen) NOVOLOG *MILD* ALGORI... Q4 SC Last administered on 10/05/16 16:53; Admin Dose 7 UNIT; Start 09/25/16 at 13:00; Status Future Hold Pantoprazole (Protonix Iv) 40 mg AM IV Last administered on 10/09/16 08:20; Admin Dose 40 MG; Start 09/26/16 at 09:00 Epoetin Raj (Epogen (Esrd)) 10,000 units TuThSa@17 SC Last administered on 10/08 16:43; Admin Dose 10,000 UNITS; Start 09/26/16 at 17:00 IV Flush (NS 10 ml) 10 ml PRN PRN IV IV PROTOCOL; Start 09/26/16 at 17:30 Aspirin (Aspirin) 81 mg DAILY NGT Last administered on 10/09/16 08:21; Admin Dose 81 MG; Start 09/27/16 at 09:00 Clopidogrel Bisulfate 75 mg 75 mg DAILY NGT Last administered on 10/09/16 08:21 ; Admin Dose 75 MG; Start 09/27/16 at 09:00 Piperacillin Sod/ Tazobactam Sod (Zosyn 2.25gm/ 50ml (Pmx)) 50 ml @ 100 mls/hr Q8 IVPB Last administered on 10/09/16 05:13; Admin Dose 100 MLS/HR; Start 09/28 at 14:00 Morphine Sulfate (morphine) 2 mg Q4H PRN IV PAIN Last administered on 10/08/16 03:06; Admin Dose 2 MG; Start 09/28/16 at 16:00 Sodium Biphosphate/ Sodium Phosphate 133 ml 133 ml DAILY PRN [place] CONSTIPATION Last administered on 10/09/16 00:50; Admin Dose 133 ML; Start 10/01/16 at 17:00 Norepinephrine/ Dextrose (Levophed/D5W) 500 ml @ 1.87 mls/hr TITRATE IV ; Start 10/04/16 at 07:00 Fluconazole (Diflucan) 100 mg DAILY GTB Last administered on 10/09/16 08:21; Admin Dose 100 MG; Start 10/05/16 at 09:00 Dextrose (D50w Syringe) 25 ml Q15M PRN IV Till BS 80 mg/dL or above x2; Start 10/05/16 at 17:30 Dextrose (D50w Syringe) 50 ml Q15M PRN IV Till BS 80 mg/dL or above x2; Start 10/05/16 at 17:30 Insulin Glargine (Lantus) 50 unit DAILY@08 SC Last administered on 10/09/16 08: 20; Admin Dose 50 UNIT; Start 10/06/16 at 08:00 Diagnostic Test (Pha) 1 ea 1 ea Q1H XX Last administered on 10/09/16 08:00; Admin Dose 1 EA; Start 10/05/16 at 19:00 Midazolam HCl 50 ml @ 1 mls/hr TITRATE IV Last administered on 10/07/16 09:47; Admin Dose 3 MLS/HR; Start 10/07/16 at 10:00 Dopamine HCl/ Dextrose 250 ml @ 7.5 mls/hr TITRATE IV Last administered on 10/07 11:00; Admin Dose 37.5 MLS/HR; Start 10/07/16 at 11:30 Amiodarone HCl/ Dextrose (Cordarone Iv/ D5W) 500 ml @ 0 mls/hr Q0M IV ; Start at 16:00; Stop 10/09/16 at 15:59; Status Future Hold ADIS CAMACHO Oct 09, 2016 09:48
[2016-10-09] MEDS: ALBUMIN HUMAN 25% 50 ML IV PRN (10:55)
[2016-10-09] MEDS: ALBUMIN HUMAN 25% 100 ML IV SCH ×2 (11:00→12:00)
--- NOTE | 2016-10-09 12:37 | PN ---
DATE: 10/09/2016 PALLIATIVE CARE PROGRESS NOTE SUBJECTIVE: Ms. Danielle is currently being dialyzed. She does respond to me. She nods her head t o simple questions. I have told her that her has been at her bedside every day and we are k eeping him informed about her clinical condition and supporting him. She is a full code which I thi nk is very appropriate at this time. Hopefully, she will improve. She remains intubated. OTHER MEDICAL PROBLEMS: STEMI, inferior wall, status post PCI, RCA, respiratory failure, on vent, p aroxysmal atrial fibrillation, renal failure, on hemodialysis. PROGNOSIS: Guarded. Dictated By: DYLAN GIBBONS MD LP/JERROD Conf#: [id number] DID#: [id number]
--- NOTE | 2016-10-09 14:02 | PN ---
DATE: 10/09/2016 SUBJECTIVE: No acute changes. The patient is intubated, lying comfortably in bed. She failed wean ing yesterday and developed atrial fibrillation but converted after bolus of amiodarone. VITAL SIGNS: Temperature 97, pulse 66, respirations 16, blood pressure 76/65, saturation 100 on po t. LABORATORY: WBC 14.9, H and H 8.4 and 27.4, platelets 109, neutrophils 85.6, BUN 114, creatinine 3 .99. INDWELLINGS: Endotracheal tube, NG tube, Rivas, right femoral Maninder catheter, PICC line placed on 09/30/2016. ANTIMICROBIALS: The patient is on: 1. Zosyn day #12. 2. Fluconazole. PHYSICAL EXAMINATION: GENERAL: This is an obese elderly woman who is lying comfortably in bed. HEENT: Head atraumatic, normocephalic. Sclerae anicteric. Buccal mucosa dry. NECK: Supple, trachea midline. CHEST: Rise symmetrical. Breath sounds diminished at the bases. HEART: S1, S2. ABDOMEN: Soft. Bowel tones present. EXTREMITIES: Bilateral toe cyanosis. ASSESSMENT: 1. Resolving sepsis. 2. Healthcare-associated pneumonia, status post bronchoscopy with bronchoalveolar culture being neg ative. 3. Acute on chronic kidney disease, hemodialysis dependent. 4. Acute myocardial infarction, status post percutaneous coronary intervention stent placement. 5. Paroxysmal atrial fibrillation. 6. Erica albicans urinary tract infection. PLAN: Continue present care, complete antibiotics for a couple more days. Consider to change femor al Maninder catheter as the site looks dirty. Vent management as per pulmonary. Continue probiotics . Dictated By: ROSALINA SIMS MAINTENANCE ENGINEER [employer] for NOEMI LARA/NTS Conf#: [id number] DID#: [id number]
--- NOTE | 2016-10-09 15:15 | PN ---
Date/Time of Note Date/Time of Note DATE: 10/09/16 TIME: 15:09 Assessment/Plan VTE Prophylaxis VTE Prophylaxis Intervention: other (on asa & plavix) Lines/Catheters IV Catheter Type (from Nrsg): PICC Line Central line still needed: No Urinary Cath still in place: Yes Reason Cath still needed: terminal illness/intractable pain Assessment/Plan Assessment/Plan 1. cad--bp better, off pressors/ a fib episode w/ extubation trial 2. arf-- failed extubation trial/ pneumonitis--wbc better 3. arf--dialysis/ anemia 4. dm 5. low alb/ musc weak 6. abnl lft ---per cards ---per pulm ---per renal ---per ID ---await another extubation trial ---extensive phys rx trial ---cont all supportive cares Subjective 24 Hr Interval Summary Free Text/Dictation intubated awake, responsive Exam/Review of Systems Vital Signs Vitals Vital Signs Date Time Temp Pulse Resp B/P Pulse Ox O2 Delivery O2 Flow Rate FiO2 10/09/16 12:00 70 10/09/16 11:00 16 76/65 100 10/09/16 08:00 30 10/09/16 08:00 97.0 10/09/16 07:00 Mechanical Ventilator Intake and Output 10/08/16 10/08/16 10/09/16 15:00 23:00 07:00 Intake Total 553.50 ml 639.5 ml 371.0 ml Output Total 30 ml 210 ml 361 ml Balance 523.50 ml 429.5 ml 10.0 ml Exam obese+ lyphaedema+ dec bs bibasilar+ rr diast m+ a few toes blue+ intubated, bed bound+ Results Result Diagram: 10/09/16 0450 10/09/16 0450 Results 24 hrs Laboratory Tests Test 10/08/16 16:00 10/08/16 16:46 10/08/16 17:54 10/08/16 20:05 Bedside Glucose 105 98 110 116 Test 10/08/16 21:04 10/08/16 22:02 10/08/16 23:59 10/09/16 02:14 Bedside Glucose 117 129 148 131 Test 10/09/16 04:04 10/09/16 04:50 10/09/16 06:09 10/09/16 08:07 Bedside Glucose 126 115 131 White Blood Count 14.9 H Red Blood Count 2.86 L Hemoglobin 8.4 L Hematocrit 27.4 L Mean Corpuscular Volume 95.8 Mean Corpuscular Hemoglobin 29.4 Mean Corpuscular Hemoglobin Concent 30.7 L Red Cell Distribution Width 23.5 H Platelet Count 109 L Mean Platelet Volume 12.4 H Neutrophils % 85.6 H Lymphocytes % 7.4 L Monocytes % 5.5 Eosinophils % 0.8 Basophils % 0.1 Nucleated Red Blood Cells % 0.5 H Neutrophils # 12.8 H Lymphocytes # 1.1 Monocytes # 0.8 Eosinophils # 0.1 Basophils # 0.0 Nucleated Red Blood Cells # 0.1 H Sodium Level 140 Potassium Level 3.8 Chloride Level 106 Carbon Dioxide Level 23 Anion Gap 15 Blood Urea Nitrogen 114 H Creatinine 3.99 H Glucose Level 121 Calcium Level 7.9 L Total Bilirubin 0.4 Direct Bilirubin 0.10 Indirect Bilirubin 0.3 Aspartate Amino Transf (AST/SGOT) 324 H Alanine Aminotransferase (ALT/SGPT) 229 H Alkaline Phosphatase 369 H Total Protein 5.4 L Albumin 2.5 L Globulin 2.90 Albumin/Globulin Ratio 0.86 Test 10/09/16 10:57 10/09/16 13:31 Bedside Glucose 137 104 Medications Medications Current Medications Miscellaneous Information 1 ea NOTE XX ; Start 09/20/16 at 22:00 Glucose (Glutose) 15 gm Q15M PRN PO DECREASED GLUCOSE; Start 09/20/16 at 22:00 Glucose (Glutose) 22.5 gm Q15M PRN PO DECREASED GLUCOSE; Start 09/20/16 at 22: 00 Glucagon (Glucagen) 1 mg Q15M PRN IM DECREASED GLUCOSE; Start 09/20/16 at 22:00 Glucose (Glutose) 15 gm Q15M PRN BUCCAL DECREASED GLUCOSE; Start 09/20/16 at 22 :00 Acetaminophen (Tylenol Liquid) 650 mg Q4H PRN NGT PAIN AND OR ELEVATED TEMP Last administered on 09/27/16 05:14; Admin Dose 650 MG; Start 09/21/16 at 02:00 Eye Lubricant (Artificial Tears Oph) 2 drop QID BOTH EYES Last administered on 10/09/16 14:11; Admin Dose 2 DROP; Start 09/21/16 at 09:00 Dextrose (D50w Syringe) 25 ml Q15M PRN IV Till BS 80 mg/dL or above x2; Start 09/21/16 at 08:00 Dextrose (D50w Syringe) 50 ml Q15M PRN IV Till BS 80 mg/dL or above x2; Start 09/21/16 at 08:00 Atorvastatin Calcium (Lipitor) 80 mg HS NGT Last administered on 10/08/16 21:12 ; Admin Dose 80 MG; Start 09/22/16 at 21:00 Insulin Aspart (Novolog Insulin Pen) NOVOLOG *MILD* ALGORI... Q4 SC Last administered on 10/05/16 16:53; Admin Dose 7 UNIT; Start 09/25/16 at 13:00; Status Future Hold Pantoprazole (Protonix Iv) 40 mg AM IV Last administered on 10/09/16 08:20; Admin Dose 40 MG; Start 09/26/16 at 09:00 Epoetin Raj (Epogen (Esrd)) 10,000 units TuThSa@17 SC Last administered on 10/08 16:43; Admin Dose 10,000 UNITS; Start 09/26/16 at 17:00 IV Flush (NS 10 ml) 10 ml PRN PRN IV IV PROTOCOL; Start 09/26/16 at 17:30 Aspirin (Aspirin) 81 mg DAILY NGT Last administered on 10/09/16 08:21; Admin Dose 81 MG; Start 09/27/16 at 09:00 Clopidogrel Bisulfate 75 mg 75 mg DAILY NGT Last administered on 10/09/16 08:21 ; Admin Dose 75 MG; Start 09/27/16 at 09:00 Piperacillin Sod/ Tazobactam Sod (Zosyn 2.25gm/ 50ml (Pmx)) 50 ml @ 100 mls/hr Q8 IVPB Last administered on 10/09/16 14:17; Admin Dose 100 MLS/HR; Start 09/28 at 14:00 Morphine Sulfate (morphine) 2 mg Q4H PRN IV PAIN Last administered on 10/08/16 03:06; Admin Dose 2 MG; Start 09/28/16 at 16:00 Sodium Biphosphate/ Sodium Phosphate 133 ml 133 ml DAILY PRN [place] CONSTIPATION Last administered on 10/09/16 00:50; Admin Dose 133 ML; Start 10/01/16 at 17:00 Norepinephrine/ Dextrose (Levophed/D5W) 500 ml @ 1.87 mls/hr TITRATE IV ; Start 10/04/16 at 07:00 Fluconazole (Diflucan) 100 mg DAILY GTB Last administered on 10/09/16 08:21; Admin Dose 100 MG; Start 10/05/16 at 09:00 Dextrose (D50w Syringe) 25 ml Q15M PRN IV Till BS 80 mg/dL or above x2; Start 10/05/16 at 17:30 Dextrose (D50w Syringe) 50 ml Q15M PRN IV Till BS 80 mg/dL or above x2; Start 10/05/16 at 17:30 Insulin Glargine (Lantus) 50 unit DAILY@08 SC Last administered on 10/09/16 08: 20; Admin Dose 50 UNIT; Start 10/06/16 at 08:00 Diagnostic Test (Pha) 1 ea 1 ea Q1H XX Last administered on 10/09/16 10:00; Admin Dose 1 EA; Start 10/05/16 at 19:00 Midazolam HCl 50 ml @ 1 mls/hr TITRATE IV Last administered on 10/07/16 09:47; Admin Dose 3 MLS/HR; Start 10/07/16 at 10:00 Dopamine HCl/ Dextrose 250 ml @ 7.5 mls/hr TITRATE IV Last administered on 10/07 11:00; Admin Dose 37.5 MLS/HR; Start 10/07/16 at 11:30 Amiodarone HCl/ Dextrose (Cordarone Iv/ D5W) 500 ml @ 0 mls/hr Q0M IV ; Start at 16:00; Stop 10/09/16 at 15:59; Status Future Hold Lactobacillus Acidoph/Bulgaricus (Floranex) 1 tab TID PO ; Start 10/09/16 at 21: 00 SHAMA LOPEZ MD Oct 09, 2016 15:15
[2016-10-09] MEDS ORDERED: GLUCOSE GEL 15 GRAM TUBE PO PRN ×2 (20:30)
[2016-10-09] MEDS ORDERED: GLUCAGON 1 MG INJ IM PRN (20:30)
[2016-10-09] MEDS ORDERED: DEXTROSE 50% 50 ML SYRINGE IV PRN (20:30)
[2016-10-09] MEDS ORDERED: GLUCOSE GEL 15 GRAM TUBE BUCCAL PRN (20:30)
[2016-10-09] MEDS: LACTOBACILLUS CHEW TAB PO SCH (21:16)
[2016-10-09] MEDS: ATORVASTATIN 80 MG TAB NGT SCH (21:17)
[2016-10-09] MEDS: INSULIN ASPART [NOVOLOG] 3 ML PEN SC SCH (23:42)
[2016-10-10] VITALS (44 sets, daily range): BP systolic 96–129; BP diastolic 41–84; PULSE 63–86; RESP 13–29
[2016-10-10] MEDS: LEVALBUTEROL (HFA) 15 GM INHALER INH SCH ×4 (01:51→19:43)
[2016-10-10] MEDS: ACETYLCYSTEINE 20% 4 ML VIAL NEB SCH ×4 (01:51→19:45)
[2016-10-10] MEDS: IPRATROPIUM (HFA) 12.9 GM INHALER INH SCH ×4 (01:51→19:43)
[2016-10-10] MEDS: morphine 2 MG INJ IV PRN ×2 (03:54→11:20)
[2016-10-10 05:00] LABS: ADD SCAN DIFF NO
[2016-10-10 05:26] LABS: AADO2 Arterial 71.8 mmHg (7.0-24.0); Allen Test ACCEPTAB; Arterial COHb 0.3 % (0.0-3.0); Arterial Fraction of Oxyhgb 96.5 % (93.0-99.0); Arterial MetHb 0.3 % (0.0-1.5); Arterial Total Hemglobin 10.9 g/dl (12.0-18.0); MODE VENT - AC
[2016-10-10 05:27] LABS: POTASSIUM 3.7 mmol/L (3.5-5.1)
[2016-10-10 05:28] LABS: ABNORMAL IP MESSAGE 1; BASOPHILS % 0.1 % (0.0-2.0); EOSINOPHILS # 0.1 10^3/ul (0.0-0.5); EOSINOPHILS % 0.5 % (0.0-7.0); HEMATOCRIT 28.8 % (37.0-47.0); HEMOGLOBIN 8.6 g/dl (12.0-16.0); LYMPHOCYTES # 1.1 10^3/ul (0.8-2.9); LYMPHOCYTES % 7.6 % (15.0-51.0); MEAN CORPUSCULAR HEMOGLOBIN 29.1 pg (29.0-33.0); MEAN CORPUSCULAR HGB CONC 29.9 g/dl (32.0-37.0); MEAN CORPUSCULAR VOLUME 97.3 fl (82.0-101.0); MEAN PLATELET VOLUME 12.1 fl (7.4-10.4); MONOCYTE # 0.8 10^3/ul (0.3-0.9); MONOCYTES % 5.5 % (0.0-11.0); NEUTROPHIL # 12.5 10^3/ul (1.6-7.5); NEUTROPHILS % 85.7 % (39.0-77.0); NUCLEATED RED BLOOD CELLS # 0.1 10^3/ul (0.0-0.0); NUCLEATED RED BLOOD CELLS% 0.4 /100WBC (0.0-0.0); PLATELET COUNT 107 10^3/UL (140-415); RED BLOOD COUNT 2.96 10^6/ul (4.20-5.40); RED CELL DISTRIBUTION WIDTH 24.8 % (11.5-14.5); WHITE BLOOD COUNT 14.6 10^3/ul (4.8-10.8)
[2016-10-10 05:30] LABS: PHOSPHORUS 5.4 mg/dl (2.5-4.9)
[2016-10-10 05:31] LABS: CALCIUM 8.1 mg/dl (8.4-10.2); MAGNESIUM 2.2 mg/dl (1.7-2.5)
[2016-10-10 05:35] LABS: INR 1.2; PROTIME 15.3 Sec (12.2-14.2); PT RATIO 1.2
[2016-10-10 05:49] LABS: CREATININE 3.31 mg/dl (0.44-1.00)
[2016-10-10] MEDS: INSULIN ASPART [NOVOLOG] 3 ML PEN SC SCH ×3 (06:00→18:00)
[2016-10-10] MEDS: PIPER-TAZO 2.25 GM (PMX) 50 ML IVPB SCH ×3 (06:20→23:35)
[2016-10-10] MEDS: ARTIFICIAL TEARS 15 ML OPH BOTH EYES SCH ×4 (08:27→20:44)
[2016-10-10] MEDS: INSULIN GLARGINE [LANtus] 3 ML PEN SC SCH (08:27)
[2016-10-10] MEDS: ASPIRIN 81 MG TAB NGT SCH (08:33)
[2016-10-10] MEDS: CLOPIDOGREL 75 MG TAB NGT SCH (08:33)
[2016-10-10] MEDS: LACTOBACILLUS CHEW TAB PO SCH ×3 (08:33→20:44)
[2016-10-10] MEDS: PANTOPRAZOLE 40 MG INJ IV SCH (08:33)
[2016-10-10] MEDS: FLUCONAZOLE 100 MG TAB GTB SCH (08:37)
--- NOTE | 2016-10-10 09:23 | CONS ---
Date/Time of Note Date/Time of Note DATE: 10/10/16 TIME: 09:20 Assessment/Plan Assessment/Plan Additional Assessment/Plan Ventilator settings; AC of 16, tidal volume 500, PEEP of 5, 30% FiO2. Assessment recommendations; next 1. Patient admitted with acute MT and acute renal failure leading to respiratory failure. 2. Severe anasarca, currently on hemodialysis. 3. Bilateral pneumonia, status post bronchoscopy for clearing of mucous plug involving the right mainstem bronchus with marked radiological improvement. 4. Failure to be weaned from ventilator. 5. Failure to patient trial. 6. Severe generalized muscular weakness. Continue current treatment. Change ventilator settings to SIMV with a rate of 8 , pressure support 10, tidal volume 500 PEEP of 5 and 30% FiO2. Consultation Date/Type/Reason Admit Date/Time Sep 20, 2016 at 19:21 Initial Consult Date 09/23/16 Type of Consultation: Pulmonary/critical care Referring Provider: ZANDRA ROBISON MD, [facility] 24 HR Interval Summary Free Text/Dictation Patient condition remains critical. Patient has failed numerous weaning attempts from ventilator leading to atrial fibrillation respiratory distress. Patient however has remained hemodynamically stable. Exam; elderly woman, orally intubated, awake and alert. Currently in no distress. Exam/Review of Systems Vital Signs Vitals Vital Signs Date Time Temp Pulse Resp B/P Pulse Ox O2 Delivery O2 Flow Rate FiO2 10/10/16 08:00 75 10/10/16 07:41 16 100 30 10/10/16 07:00 109/58 Mechanical Ventilator 10/10/16 04:00 97.5 Intake and Output 10/09/16 10/09/16 10/10/16 15:00 23:00 07:00 Intake Total 797.5 ml 510 ml 275 ml Output Total 2675 ml 345 ml 285 ml Balance -1877.5 ml 165 ml -10 ml Exam HEENT exam is; supple neck, positive JVD. No lymphadenopathy. Midline trachea. No thyromegaly. Orally intubated. It was a midsize and reactive to light. Patient has fair dentition. No neck masses. No thyromegaly. Chest examination; diminished but clear breath sounds bilaterally. S1-S2 audible, no murmurs. Regular rhythm. Abdomen examination; soft, nontender. Bowel sounds audible. No organomegaly. Extremity exam is; 1+ anasarca. Multiple ecchymoses are present in all 4 extremities. There is gangrene involving toes bilaterally. Pulses 1+ bilaterally. DCS ENGINEER exam is; patient is awake alert responds by appropriate head nodding. Has severe generalized muscular weakness. Results Result Diagram: 10/10/16 0400 10/10/16 0400 Results 24 hrs Laboratory Tests Test 10/09/16 10:57 10/09/16 13:31 10/09/16 16:20 10/09/16 18:26 Bedside Glucose 137 104 105 114 Test 10/09/16 23:40 10/10/16 04:00 10/10/16 05:00 10/10/16 06:19 Bedside Glucose 156 119 White Blood Count 14.6 H Red Blood Count 2.96 L Hemoglobin 8.6 L Hematocrit 28.8 L Mean Corpuscular Volume 97.3 Mean Corpuscular Hemoglobin 29.1 Mean Corpuscular Hemoglobin Concent 29.9 L Red Cell Distribution Width 24.8 H Platelet Count 107 L Mean Platelet Volume 12.1 H Neutrophils % 85.7 H Lymphocytes % 7.6 L Monocytes % 5.5 Eosinophils % 0.5 Basophils % 0.1 Nucleated Red Blood Cells % 0.4 H Neutrophils # 12.5 H Lymphocytes # 1.1 Monocytes # 0.8 Eosinophils # 0.1 Basophils # 0.0 Nucleated Red Blood Cells # 0.1 H Prothrombin Time 15.3 H Prothrombin Time Ratio 1.2 INR International Normalized Ratio 1.20 Sodium Level 143 Potassium Level 3.7 Chloride Level 103 Carbon Dioxide Level 24 Anion Gap 20 H Blood Urea Nitrogen 103 H Creatinine 3.31 H Glucose Level 154 Calcium Level 8.1 L Phosphorus Level 5.4 H Magnesium Level 2.2 Blood Gas Specimen Source Blood arterial Arterial Blood Date Drawn 10/10/2016 5:15:39 AM Arterial Blood pH (Temp corrected) 7.422 Arterial Blood pCO2 (Temp correct) 34.5 L Arterial Blood pO2 (Temp corrected) 101.6 H Arterial Blood HCO3 22.0 Arterial Blood Base Excess -2.0 Arterial Blood Oxygen Saturation 97.1 Raz Test ACCEPTAB Arterial Blood Gas Puncture Site Right Radial Arterial Blood Carboxyhemoglobin 0.3 Arterial Blood Methemoglobin 0.3 Blood Gas A-a O2 Differential 71.8 H Oxyhemoglobin Percent 96.5 Total Hemoglobin 10.9 L Blood Gas Temperature 37.0 Blood Gas Respiration Rate 16.0 Blood Gas Actual Respiration Rate 16 Blood Gas Modality VENT - AC FiO2 30.0 Blood Gas Tidal Volume 500.0 Blood Gas Low PEEP Setting 5.0 Blood Gas Inspiratory Pressure 26.0 Blood Gas Notified Whom KM Blood Gas Notified Time 10/10/2016 5:25:47 AM Test 10/10/16 08:24 Bedside Glucose 130 Medications Medications Current Medications Acetaminophen (Tylenol Liquid) 650 mg Q4H PRN NGT PAIN AND OR ELEVATED TEMP Last administered on 09/27/16 05:14; Admin Dose 650 MG; Start 09/21/16 at 02:00 Eye Lubricant (Artificial Tears Oph) 2 drop QID BOTH EYES Last administered on 10/10/16 08:27; Admin Dose 2 DROP; Start 09/21/16 at 09:00 Atorvastatin Calcium (Lipitor) 80 mg HS NGT Last administered on 10/09/16 21:17 ; Admin Dose 80 MG; Start 09/22/16 at 21:00 Pantoprazole (Protonix Iv) 40 mg AM IV Last administered on 10/10/16 08:33; Admin Dose 40 MG; Start 09/26/16 at 09:00 Epoetin Raj (Epogen (Esrd)) 10,000 units TuThSa@17 SC Last administered on 10/08 16:43; Admin Dose 10,000 UNITS; Start 09/26/16 at 17:00 IV Flush (NS 10 ml) 10 ml PRN PRN IV IV PROTOCOL; Start 09/26/16 at 17:30 Aspirin (Aspirin) 81 mg DAILY NGT Last administered on 10/10/16 08:33; Admin Dose 81 MG; Start 09/27/16 at 09:00 Clopidogrel Bisulfate 75 mg 75 mg DAILY NGT Last administered on 10/10/16 08:33 ; Admin Dose 75 MG; Start 09/27/16 at 09:00 Piperacillin Sod/ Tazobactam Sod (Zosyn 2.25gm/ 50ml (Pmx)) 50 ml @ 100 mls/hr Q8 IVPB Last administered on 10/10/16 06:20; Admin Dose 100 MLS/HR; Start 09/28 at 14:00 Morphine Sulfate (morphine) 2 mg Q4H PRN IV PAIN Last administered on 4/6/17at 03:54; Admin Dose 2 MG; Start 09/28/16 at 16:00 Sodium Biphosphate/ Sodium Phosphate 133 ml 133 ml DAILY PRN [place] CONSTIPATION Last administered on 10/09/16 00:50; Admin Dose 133 ML; Start 10/01/16 at 17:00 Norepinephrine/ Dextrose (Levophed/D5W) 500 ml @ 1.87 mls/hr TITRATE IV ; Start 10/04/16 at 07:00 Fluconazole (Diflucan) 100 mg DAILY GTB Last administered on 10/10/16 08:37; Admin Dose 100 MG; Start 10/05/16 at 09:00 Insulin Glargine 50 unit 50 unit DAILY@08 SC Last administered on 10/10/16 08: 27; Admin Dose 50 UNIT; Start 10/06/16 at 08:00 Midazolam HCl 50 ml @ 1 mls/hr TITRATE IV Last administered on 10/07/16 09:47; Admin Dose 3 MLS/HR; Start 10/07/16 at 10:00 Dopamine HCl/ Dextrose 250 ml @ 7.5 mls/hr TITRATE IV Last administered on 10/07 11:00; Admin Dose 37.5 MLS/HR; Start 10/07/16 at 11:30 Lactobacillus Acidoph/Bulgaricus (Floranex) 1 tab TID PO Last administered on 08:33; Admin Dose 1 TAB; Start 10/09/16 at 21:00 Insulin Aspart (Novolog Insulin Pen) NOVOLOG *MODERATE* ALGORI... Q6 SC Last administered on 10/09/16 23:42; Admin Dose 2 UNIT; Start 10/10/16 at 00:00 Miscellaneous Information 1 ea NOTE XX ; Start 10/09/16 at 20:30 Glucose (Glutose) 15 gm Q15M PRN PO DECREASED GLUCOSE; Start 10/09/16 at 20:30 Glucose (Glutose) 22.5 gm Q15M PRN PO DECREASED GLUCOSE; Start 10/09/16 at 20:30 Dextrose (D50w Syringe) 25 ml Q15M PRN IV DECREASED GLUCOSE; Start 10/09/16 at 20:30 Dextrose (D50w Syringe) 50 ml Q15M PRN IV DECREASED GLUCOSE; Start 10/09/16 at 20:30 Glucagon (Glucagen) 1 mg Q15M PRN IM DECREASED GLUCOSE; Start 10/09/16 at 20:30 Glucose (Glutose) 15 gm Q15M PRN BUCCAL DECREASED GLUCOSE; Start 10/09/16 at 20: 30 ADIS CAMACHO Oct 10, 2016 09:23
--- NOTE | 2016-10-10 09:39 | CONS ---
Date/Time of Note Date/Time of Note DATE: 10/10/16 TIME: 09:31 Assessment/Plan Assessment/Plan Chief Complaint/Hosp Course 1. Acute Renal Failure due to ATN , nonoliguric . Her the BUN is high. I will order a hemodialysis for today . She is maintaining a good blood pressure off pressors.She will need a change in her vascath . Will try to arrange for permacath placement by IR tomorrow . 2. ALOC , she is improved and responsive 3. liver enzyme elevation due to anoxia , enzymes are decreasing . 4. hypotension , she is now normotensive all pressors. 5. hypocalcemia/hypoalbuminemia , her calcium level has increased. 6. anemia , she has not had any recent GI bleeding , blood transfused with last dialysis . 7. peripheral vascular disease . 8. respiratory failure , ventilator dependent . Problems: Consultation Date/Type/Reason Admit Date/Time Sep 20, 2016 at 19:21 Initial Consult Date 09/23/16 Type of Consultation: renal Referring Provider: ZANDRA ROBISON MD, [facility] 24 HR Interval Summary Free Text/Dictation She is in the ICU intubated on ventilator .She is awake and responsive . She c/ o foot pain . Exam/Review of Systems Vital Signs Vitals Vital Signs Date Time Temp Pulse Resp B/P Pulse Ox O2 Delivery O2 Flow Rate FiO2 10/10/16 08:00 75 10/10/16 07:41 16 100 30 10/10/16 07:00 109/58 Mechanical Ventilator 10/10/16 04:00 97.5 Intake and Output 10/09/16 10/09/16 10/10/16 15:00 23:00 07:00 Intake Total 797.5 ml 510 ml 275 ml Output Total 2675 ml 345 ml 285 ml Balance -1877.5 ml 165 ml -10 ml Exam Constitutional: alert Respiratory: clear to auscultation, diminished breath sounds Cardiovascular: regular rate and rhythm Gastrointestinal: soft Extremities: edema Results Result Diagram: 10/10/16 0400 10/10/16 0400 Results 24 hrs Laboratory Tests Test 10/09/16 10:57 10/09/16 13:31 10/09/16 16:20 10/09/16 18:26 Bedside Glucose 137 104 105 114 Test 10/09/16 23:40 10/10/16 04:00 10/10/16 05:00 10/10/16 06:19 Bedside Glucose 156 119 White Blood Count 14.6 H Red Blood Count 2.96 L Hemoglobin 8.6 L Hematocrit 28.8 L Mean Corpuscular Volume 97.3 Mean Corpuscular Hemoglobin 29.1 Mean Corpuscular Hemoglobin Concent 29.9 L Red Cell Distribution Width 24.8 H Platelet Count 107 L Mean Platelet Volume 12.1 H Neutrophils % 85.7 H Lymphocytes % 7.6 L Monocytes % 5.5 Eosinophils % 0.5 Basophils % 0.1 Nucleated Red Blood Cells % 0.4 H Neutrophils # 12.5 H Lymphocytes # 1.1 Monocytes # 0.8 Eosinophils # 0.1 Basophils # 0.0 Nucleated Red Blood Cells # 0.1 H Prothrombin Time 15.3 H Prothrombin Time Ratio 1.2 INR International Normalized Ratio 1.20 Sodium Level 143 Potassium Level 3.7 Chloride Level 103 Carbon Dioxide Level 24 Anion Gap 20 H Blood Urea Nitrogen 103 H Creatinine 3.31 H Glucose Level 154 Calcium Level 8.1 L Phosphorus Level 5.4 H Magnesium Level 2.2 Blood Gas Specimen Source Blood arterial Arterial Blood Date Drawn 10/10/2016 5:15:39 AM Arterial Blood pH (Temp corrected) 7.422 Arterial Blood pCO2 (Temp correct) 34.5 L Arterial Blood pO2 (Temp corrected) 101.6 H Arterial Blood HCO3 22.0 Arterial Blood Base Excess -2.0 Arterial Blood Oxygen Saturation 97.1 Raz Test ACCEPTAB Arterial Blood Gas Puncture Site Right Radial Arterial Blood Carboxyhemoglobin 0.3 Arterial Blood Methemoglobin 0.3 Blood Gas A-a O2 Differential 71.8 H Oxyhemoglobin Percent 96.5 Total Hemoglobin 10.9 L Blood Gas Temperature 37.0 Blood Gas Respiration Rate 16.0 Blood Gas Actual Respiration Rate 16 Blood Gas Modality VENT - AC FiO2 30.0 Blood Gas Tidal Volume 500.0 Blood Gas Low PEEP Setting 5.0 Blood Gas Inspiratory Pressure 26.0 Blood Gas Notified Whom KM Blood Gas Notified Time 10/10/2016 5:25:47 AM Test 10/10/16 08:24 Bedside Glucose 130 Medications Medications Current Medications Acetaminophen (Tylenol Liquid) 650 mg Q4H PRN NGT PAIN AND OR ELEVATED TEMP Last administered on 09/27/16 05:14; Admin Dose 650 MG; Start 09/21/16 at 02:00 Eye Lubricant (Artificial Tears Oph) 2 drop QID BOTH EYES Last administered on 10/10/16 08:27; Admin Dose 2 DROP; Start 09/21/16 at 09:00 Atorvastatin Calcium (Lipitor) 80 mg HS NGT Last administered on 10/09/16 21:17 ; Admin Dose 80 MG; Start 09/22/16 at 21:00 Pantoprazole (Protonix Iv) 40 mg AM IV Last administered on 10/10/16 08:33; Admin Dose 40 MG; Start 09/26/16 at 09:00 Epoetin Raj (Epogen (Esrd)) 10,000 units TuThSa@17 SC Last administered on 10/08 16:43; Admin Dose 10,000 UNITS; Start 09/26/16 at 17:00 IV Flush (NS 10 ml) 10 ml PRN PRN IV IV PROTOCOL; Start 09/26/16 at 17:30 Aspirin (Aspirin) 81 mg DAILY NGT Last administered on 10/10/16 08:33; Admin Dose 81 MG; Start 09/27/16 at 09:00 Clopidogrel Bisulfate 75 mg 75 mg DAILY NGT Last administered on 10/10/16 08:33 ; Admin Dose 75 MG; Start 09/27/16 at 09:00 Piperacillin Sod/ Tazobactam Sod (Zosyn 2.25gm/ 50ml (Pmx)) 50 ml @ 100 mls/hr Q8 IVPB Last administered on 10/10/16 06:20; Admin Dose 100 MLS/HR; Start 09/28 at 14:00 Morphine Sulfate (morphine) 2 mg Q4H PRN IV PAIN Last administered on 10/10/16 03:54; Admin Dose 2 MG; Start 09/28/16 at 16:00 Sodium Biphosphate/ Sodium Phosphate 133 ml 133 ml DAILY PRN [place] CONSTIPATION Last administered on 10/09/16 00:50; Admin Dose 133 ML; Start 10/01/16 at 17:00 Norepinephrine/ Dextrose (Levophed/D5W) 500 ml @ 1.87 mls/hr TITRATE IV ; Start 10/04/16 at 07:00 Fluconazole (Diflucan) 100 mg DAILY GTB Last administered on 10/10/16 08:37; Admin Dose 100 MG; Start 10/05/16 at 09:00 Insulin Glargine 50 unit 50 unit DAILY@08 SC Last administered on 10/10/16 08: 27; Admin Dose 50 UNIT; Start 10/06/16 at 08:00 Midazolam HCl 50 ml @ 1 mls/hr TITRATE IV Last administered on 10/07/16 09:47; Admin Dose 3 MLS/HR; Start 10/07/16 at 10:00 Dopamine HCl/ Dextrose 250 ml @ 7.5 mls/hr TITRATE IV Last administered on 10/07 11:00; Admin Dose 37.5 MLS/HR; Start 10/07/16 at 11:30 Lactobacillus Acidoph/Bulgaricus (Floranex) 1 tab TID PO Last administered on 08:33; Admin Dose 1 TAB; Start 10/09/16 at 21:00 Insulin Aspart (Novolog Insulin Pen) NOVOLOG *MODERATE* ALGORI... Q6 SC Last administered on 10/09/16 23:42; Admin Dose 2 UNIT; Start 10/10/16 at 00:00 Miscellaneous Information 1 ea NOTE XX ; Start 10/09/16 at 20:30 Glucose (Glutose) 15 gm Q15M PRN PO DECREASED GLUCOSE; Start 10/09/16 at 20:30 Glucose (Glutose) 22.5 gm Q15M PRN PO DECREASED GLUCOSE; Start 10/09/16 at 20:30 Dextrose (D50w Syringe) 25 ml Q15M PRN IV DECREASED GLUCOSE; Start 10/09/16 at 20:30 Dextrose (D50w Syringe) 50 ml Q15M PRN IV DECREASED GLUCOSE; Start 10/09/16 at 20:30 Glucagon (Glucagen) 1 mg Q15M PRN IM DECREASED GLUCOSE; Start 10/09/16 at 20:30 Glucose (Glutose) 15 gm Q15M PRN BUCCAL DECREASED GLUCOSE; Start 10/09/16 at 20: 30 DAMIR MARTINEZ MD Oct 10, 2016 09:39
--- NOTE | 2016-10-10 13:06 | RADRPT ---
PROCEDURE: US bilateral upper extremity veins. CLINICAL INDICATION: Preoperative evaluation for central line placement. TECHNIQUE: Multiple longitudinal and transverse images of the bilateral internal jugular veins, ax illary, and subclavian veins was obtained with sandhu scale, pulsed Doppler imaging, and color Doppler imaging. COMPARISON: None available FINDINGS: The internal jugular veins and subclavian veins are patent bilaterally with normal flow and compress ibility. The right axillary vein is patent. The left axillary vein is thrombosed with lack of flow and lack of compressibility. A PICC line is present in the left axillary vein. The right internal jugular vein diameter is 0.8 cm and the left internal jugular vein diameter is 0. 5 cm. IMPRESSION: 1. Normal bilateral internal jugular and subclavian veins. 2. Normal right axillary vein. 3. Thrombosis of the left axillary vein. RPTAT: QQ .Arnaldo Back MD, Date Time Electronically viewed and signed by .Arnaldo Back MD, on 10/10/2016 13:06 .R/
--- NOTE | 2016-10-10 13:29 | PN ---
DATE: 10/10/2016 PALLIATIVE CARE FOLLOWUP NOTE Mrs. Danielle remains vent-dependent and on hemodialysis. There has been no significant improvement in her overall pulmonary condition. She has been unable to be weaned from the ventilator. I had a long discussion with the patient's today, who understands her ongoing critical condition at this time. Hopes and quality of life have been discussed with him and the goals of care. I have s poken to Dr. Newberry today and recommendations are to trach the patient because she has severe ICU m uscle wasting and therefore the chance of successful extubation is very poor. I discussed it with Rashad Danielle in detail. He states he would like to think about it first and will discuss with alycia yusuf in the event that myself or the other physicians involved with her care are not in the intensive c are unit. There are no pain management issues, or ethic issues or psychosocial issues to address at this time. The patient is still a FULL CODE. Dictated By: DYLAN GIBBONS MD, LP/JERROD Conf#: [id number] DID#: [id number]
--- NOTE | 2016-10-10 14:15 | PN ---
DATE: 10/10/2016 SUBJECTIVE: No events overnight. No fevers. The patient is lying comfortably in bed. LABORATORY DATA: WBC today 14.6, H and H 8.6 and 28.8, platelets 107, neutrophils 85.7, no bands. BUN 103, creatinine 3.31. INDWELLINGS: ET tube, OG tube, right femoral Maninder and PICC line. ANTIMICROBIALS: The patient is on: 1. Zosyn. 2. Diflucan. PHYSICAL EXAMINATION: GENERAL: This is an obese, well-developed, elderly woman who is in no distress. HEENT: Head atraumatic, normocephalic. Sclerae anicteric. Buccal mucosa dry. NECK: Supple. CHEST: Rise symmetrical. Breath sounds diminished to bases. HEART: S1, S2. ABDOMEN: Soft. Bowel tones present. EXTREMITIES: Bilateral toe cyanosis. ASSESSMENT: 1. Resolving sepsis. 2. Resolving pneumonia. 3. Erica albicans urinary tract infection. 4. Acute on chronic kidney disease. 5. Acute myocardial infarction, status post percutaneous transluminal coronary angioplasty. 6. Paroxysmal atrial fibrillation. PLAN: The patient remains hemodynamically stable. We are going to discontinue Zosyn. Keep her on Diflucan. Panculture her if she spikes fever. Consider Maninder catheter changed as soon as possibl e. Follow recommendations of consultants. Dictated By: ROSALINA SIMS WHEEL ASSEMBLER for NOEMI LARA/JERROD Conf#: [id number] DID#: [id number]
--- NOTE | 2016-10-10 15:16 | PN ---
Date/Time of Note Date/Time of Note DATE: 10/10/16 TIME: 15:09 Assessment/Plan VTE Prophylaxis VTE Prophylaxis Intervention: other (asa & plavix) Lines/Catheters IV Catheter Type (from Nrsg): PICC Line Central line still needed: No Urinary Cath still in place: Yes Reason Cath still needed: terminal illness/intractable pain Assessment/Plan Assessment/Plan 1. cad 2. arf--intubated/ pneumonitis 3. arf--dialysis/ anemia/ edema 4. dm 5. ams--more awake 6. obesity/ weak musc/ low alb/ low calc ---per cards ---per pulm, sched tracheostomy ---per ID, all atbxs ---per renal, dialysis, blood transfusion, sched perma cath place ---cont all supps ---cont all supportive cares Subjective 24 Hr Interval Summary Free Text/Dictation awake, intubated Exam/Review of Systems Vital Signs Vitals Vital Signs Date Time Temp Pulse Resp B/P Pulse Ox O2 Delivery O2 Flow Rate FiO2 10/10/16 15:02 72 17 100 10/10/16 11:44 30 10/10/16 09:00 108/53 10/10/16 08:00 97.4 Mechanical Ventilator Intake and Output 10/09/16 10/09/16 10/10/16 15:00 23:00 07:00 Intake Total 797.5 ml 510 ml 340 ml Output Total 2675 ml 345 ml 360 ml Balance -1877.5 ml 165 ml -20 ml Exam responsive, intubated a fib during weaning vent dec bs bibasilar obese/ global lymphatic edema rr diast m+ few toes blue+ Results Result Diagram: 10/10/16 0400 10/10/16 0400 Results 24 hrs Laboratory Tests Test 10/09/16 16:20 10/09/16 18:26 10/09/16 23:40 10/10/16 04:00 Bedside Glucose 105 114 156 White Blood Count 14.6 H Red Blood Count 2.96 L Hemoglobin 8.6 L Hematocrit 28.8 L Mean Corpuscular Volume 97.3 Mean Corpuscular Hemoglobin 29.1 Mean Corpuscular Hemoglobin Concent 29.9 L Red Cell Distribution Width 24.8 H Platelet Count 107 L Mean Platelet Volume 12.1 H Neutrophils % 85.7 H Lymphocytes % 7.6 L Monocytes % 5.5 Eosinophils % 0.5 Basophils % 0.1 Nucleated Red Blood Cells % 0.4 H Neutrophils # 12.5 H Lymphocytes # 1.1 Monocytes # 0.8 Eosinophils # 0.1 Basophils # 0.0 Nucleated Red Blood Cells # 0.1 H Prothrombin Time 15.3 H Prothrombin Time Ratio 1.2 INR International Normalized Ratio 1.20 Sodium Level 143 Potassium Level 3.7 Chloride Level 103 Carbon Dioxide Level 24 Anion Gap 20 H Blood Urea Nitrogen 103 H Creatinine 3.31 H Glucose Level 154 Calcium Level 8.1 L Phosphorus Level 5.4 H Magnesium Level 2.2 Test 10/10/16 05:00 10/10/16 06:19 10/10/16 08:24 10/10/16 12:24 Blood Gas Specimen Source Blood arterial Arterial Blood Date Drawn 10/10/2016 5:15:39 AM Arterial Blood pH (Temp corrected) 7.422 Arterial Blood pCO2 (Temp correct) 34.5 L Arterial Blood pO2 (Temp corrected) 101.6 H Arterial Blood HCO3 22.0 Arterial Blood Base Excess -2.0 Arterial Blood Oxygen Saturation 97.1 Raz Test ACCEPTAB Arterial Blood Gas Puncture Site Right Radial Arterial Blood Carboxyhemoglobin 0.3 Arterial Blood Methemoglobin 0.3 Blood Gas A-a O2 Differential 71.8 H Oxyhemoglobin Percent 96.5 Total Hemoglobin 10.9 L Blood Gas Temperature 37.0 Blood Gas Respiration Rate 16.0 Blood Gas Actual Respiration Rate 16 Blood Gas Modality VENT - AC FiO2 30.0 Blood Gas Tidal Volume 500.0 Blood Gas Low PEEP Setting 5.0 Blood Gas Inspiratory Pressure 26.0 Blood Gas Notified Whom KM Blood Gas Notified Time 10/10/2016 5:25:47 AM Bedside Glucose 119 130 103 Medications Medications Current Medications Acetaminophen (Tylenol Liquid) 650 mg Q4H PRN NGT PAIN AND OR ELEVATED TEMP Last administered on 09/27/16 05:14; Admin Dose 650 MG; Start 09/21/16 at 02:00 Eye Lubricant (Artificial Tears Oph) 2 drop QID BOTH EYES Last administered on 10/10/16 12:25; Admin Dose 2 DROP; Start 09/21/16 at 09:00 Atorvastatin Calcium (Lipitor) 80 mg HS NGT Last administered on 10/09/16 21:17 ; Admin Dose 80 MG; Start 09/22/16 at 21:00 Pantoprazole (Protonix Iv) 40 mg AM IV Last administered on 10/10/16 08:33; Admin Dose 40 MG; Start 09/26/16 at 09:00 Epoetin Raj (Epogen (Esrd)) 10,000 units TuThSa@17 SC Last administered on 10/08 16:43; Admin Dose 10,000 UNITS; Start 09/26/16 at 17:00 IV Flush (NS 10 ml) 10 ml PRN PRN IV IV PROTOCOL; Start 09/26/16 at 17:30 Aspirin (Aspirin) 81 mg DAILY NGT Last administered on 10/10/16 08:33; Admin Dose 81 MG; Start 09/27/16 at 09:00 Clopidogrel Bisulfate 75 mg 75 mg DAILY NGT Last administered on 10/10/16 08:33 ; Admin Dose 75 MG; Start 09/27/16 at 09:00 Piperacillin Sod/ Tazobactam Sod (Zosyn 2.25gm/ 50ml (Pmx)) 50 ml @ 100 mls/hr Q8 IVPB Last administered on 10/10/16 06:20; Admin Dose 100 MLS/HR; Start 09/28 at 14:00 Morphine Sulfate (morphine) 2 mg Q4H PRN IV PAIN Last administered on 10/10/16 11:20; Admin Dose 2 MG; Start 09/28/16 at 16:00 Sodium Biphosphate/ Sodium Phosphate 133 ml 133 ml DAILY PRN [place] CONSTIPATION Last administered on 10/09/16 00:50; Admin Dose 133 ML; Start 10/01/16 at 17:00 Norepinephrine/ Dextrose (Levophed/D5W) 500 ml @ 1.87 mls/hr TITRATE IV ; Start 10/04/16 at 07:00 Fluconazole (Diflucan) 100 mg DAILY GTB Last administered on 10/10/16 08:37; Admin Dose 100 MG; Start 10/05/16 at 09:00 Insulin Glargine 50 unit 50 unit DAILY@08 SC Last administered on 10/10/16 08: 27; Admin Dose 50 UNIT; Start 10/06/16 at 08:00 Midazolam HCl 50 ml @ 1 mls/hr TITRATE IV Last administered on 10/07/16 09:47; Admin Dose 3 MLS/HR; Start 10/07/16 at 10:00 Dopamine HCl/ Dextrose 250 ml @ 7.5 mls/hr TITRATE IV Last administered on 10/07 11:00; Admin Dose 37.5 MLS/HR; Start 10/07/16 at 11:30 Lactobacillus Acidoph/Bulgaricus (Floranex) 1 tab TID PO Last administered on 12:26; Admin Dose 1 TAB; Start 10/09/16 at 21:00 Insulin Aspart (Novolog Insulin Pen) NOVOLOG *MODERATE* ALGORI... Q6 SC Last administered on 10/09/16 23:42; Admin Dose 2 UNIT; Start 10/10/16 at 00:00 Miscellaneous Information 1 ea NOTE XX ; Start 10/09/16 at 20:30 Glucose (Glutose) 15 gm Q15M PRN PO DECREASED GLUCOSE; Start 10/09/16 at 20:30 Glucose (Glutose) 22.5 gm Q15M PRN PO DECREASED GLUCOSE; Start 10/09/16 at 20:30 Dextrose (D50w Syringe) 25 ml Q15M PRN IV DECREASED GLUCOSE; Start 10/09/16 at 20:30 Dextrose (D50w Syringe) 50 ml Q15M PRN IV DECREASED GLUCOSE; Start 10/09/16 at 20:30 Glucagon (Glucagen) 1 mg Q15M PRN IM DECREASED GLUCOSE; Start 10/09/16 at 20:30 Glucose (Glutose) 15 gm Q15M PRN BUCCAL DECREASED GLUCOSE; Start 10/09/16 at 20: 30 SHAMA LOPEZ MD Oct 10, 2016 15:16
[2016-10-10] MEDS: ATORVASTATIN 80 MG TAB NGT SCH (20:44)
[2016-10-10] MEDS: EPOETIN 10000 UNITS/1 ML INJ (ESRD) SC SCH (20:44)
[2016-10-11] VITALS (54 sets, daily range): BP systolic 84–138; BP diastolic 41–98; PULSE 63–94; RESP 14–26
[2016-10-11] MEDS: DEXTROSE 50% 50 ML SYRINGE IV PRN ×3 (00:38→04:48)
[2016-10-11] MEDS: IPRATROPIUM (HFA) 12.9 GM INHALER INH SCH ×4 (01:14→19:35)
[2016-10-11] MEDS: LEVALBUTEROL (HFA) 15 GM INHALER INH SCH ×4 (01:14→19:34)
[2016-10-11] MEDS: ACETYLCYSTEINE 20% 4 ML VIAL NEB SCH ×4 (01:15→20:00)
[2016-10-11] MEDS: INSULIN ASPART [NOVOLOG] 3 ML PEN SC SCH ×5 (06:00→23:09)
[2016-10-11 06:08] LABS: ADD SCAN DIFF NO
[2016-10-11] MEDS: PIPER-TAZO 2.25 GM (PMX) 50 ML IVPB SCH (06:22)
[2016-10-11 06:29] LABS: ABNORMAL IP MESSAGE 1; BASOPHILS % 0.1 % (0.0-2.0); EOSINOPHILS # 0.1 10^3/ul (0.0-0.5); EOSINOPHILS % 0.6 % (0.0-7.0); HEMATOCRIT 29.8 % (37.0-47.0); LYMPHOCYTES # 0.9 10^3/ul (0.8-2.9); MEAN CORPUSCULAR HEMOGLOBIN 29.2 pg (29.0-33.0); MEAN CORPUSCULAR HGB CONC 30.2 g/dl (32.0-37.0); MEAN CORPUSCULAR VOLUME 96.8 fl (82.0-101.0); MEAN PLATELET VOLUME 12.9 fl (7.4-10.4); MONOCYTE # 0.7 10^3/ul (0.3-0.9); MONOCYTES % 5.7 % (0.0-11.0); NEUTROPHIL # 10.6 10^3/ul (1.6-7.5); NEUTROPHILS % 85.8 % (39.0-77.0); NUCLEATED RED BLOOD CELLS # 0.1 10^3/ul (0.0-0.0); NUCLEATED RED BLOOD CELLS% 0.4 /100WBC (0.0-0.0); PLATELET COUNT 96 10^3/UL (140-415); RED BLOOD COUNT 3.08 10^6/ul (4.20-5.40); RED CELL DISTRIBUTION WIDTH 24.7 % (11.5-14.5); WHITE BLOOD COUNT 12.4 10^3/ul (4.8-10.8)
[2016-10-11 06:37] LABS: INR 1.14; PARTIAL THROMBOPLASTIN TIME 26.9 Sec (25.0-35.0); PROTIME 14.6 Sec (12.2-14.2); PT RATIO 1.1
[2016-10-11] MEDS: morphine 2 MG INJ IV PRN ×2 (06:42→22:59)
[2016-10-11 07:11] LABS: ALBUMIN 2.5 g/dl (3.3-4.9); ALBUMIN/GLOBULIN RATIO 0.8; BILIRUBIN,DIRECT 0.1 mg/dl (0.00-0.20); BILIRUBIN,INDIRECT 0.6 mg/dl (0-1.1); BILIRUBIN,TOTAL 0.7 mg/dl (0.2-1.3); CALCIUM 7.7 mg/dl (8.4-10.2); POTASSIUM 3.9 mmol/L (3.5-5.1); TOTAL PROTEIN 5.6 g/dl (6.1-8.1)
[2016-10-11 07:22] LABS: CREATININE 2.72 mg/dl (0.44-1.00)
[2016-10-11] MEDS: INSULIN GLARGINE [LANtus] 3 ML PEN SC SCH (07:49)
--- NOTE | 2016-10-11 08:27 | CONS ---
Date/Time of Note Date/Time of Note DATE: 10/11/16 TIME: 08:21 Assessment/Plan Assessment/Plan Chief Complaint/Hosp Course 1. Acute Renal Failure due to ATN , nonoliguric . Her PTU when was high however she had dialysis daily for 2 days in a row. She does not need hemodialysis today. She is tentatively scheduled to have a permacath placed today for hemodialysis. . She is maintaining a good blood pressure off pressors . I will order a hemodialysis for tomorrow. I would recommend we continue dialysis every other day. 2. ALOC , she is improved and responsive 3. liver enzyme elevation due to anoxia , enzymes are decreasing . 4. hypotension , she is now normotensive all pressors. 5. hypocalcemia/hypoalbuminemia , her calcium level has increased. 6. anemia , she has not had any recent GI bleeding , blood transfused with last dialysis . 7. peripheral vascular disease . 8. respiratory failure , ventilator dependent . Problems: Consultation Date/Type/Reason Admit Date/Time Sep 20, 2016 at 19:21 Initial Consult Date 09/23/16 Type of Consultation: renal Referring Provider: ZANDRA ROBISON MD, [facility] 24 HR Interval Summary Free Text/Dictation She is in the intensive care unit, intubated, on a ventilator. She is awake and responsive. Subjective hx not possible: pt non-verbal Exam/Review of Systems Vital Signs Vitals Vital Signs Date Time Temp Pulse Resp B/P Pulse Ox O2 Delivery O2 Flow Rate FiO2 10/11/16 07:51 79 17 100 30 10/11/16 07:00 88/53 Mechanical Ventilator T Tube 10/11/16 04:00 97.2 Intake and Output 10/10/16 10/10/16 10/11/16 15:00 23:00 07:00 Intake Total 400 ml 890 ml 180 ml Output Total 310 ml 2587 ml 145 ml Balance 90 ml -1697 ml 35 ml Exam Constitutional: alert, non-verbal Respiratory: clear to auscultation, diminished breath sounds Cardiovascular: regular rate and rhythm Gastrointestinal: soft Extremities: edema Results Result Diagram: 10/11/16 0440 10/11/16 0440 Results 24 hrs Laboratory Tests Test 10/10/16 08:24 10/10/16 12:24 10/10/16 16:46 10/11/16 00:33 Bedside Glucose 130 103 95 64 L Test 10/11/16 01:03 10/11/16 02:16 10/11/16 02:45 10/11/16 04:40 Bedside Glucose 88 67 L 81 White Blood Count 12.4 H Red Blood Count 3.08 L Hemoglobin 9.0 L Hematocrit 29.8 L Mean Corpuscular Volume 96.8 Mean Corpuscular Hemoglobin 29.2 Mean Corpuscular Hemoglobin Concent 30.2 L Red Cell Distribution Width 24.7 H Platelet Count 96 L Mean Platelet Volume 12.9 H Neutrophils % 85.8 H Lymphocytes % 7.0 L Monocytes % 5.7 Eosinophils % 0.6 Basophils % 0.1 Nucleated Red Blood Cells % 0.4 H Neutrophils # 10.6 H Lymphocytes # 0.9 Monocytes # 0.7 Eosinophils # 0.1 Basophils # 0.0 Nucleated Red Blood Cells # 0.1 H Prothrombin Time 14.6 H Prothrombin Time Ratio 1.1 INR International Normalized Ratio 1.14 Activated Partial Thromboplast Time 26.9 Sodium Level 136 Potassium Level 3.9 Chloride Level 102 Carbon Dioxide Level 25 Anion Gap 13 # Blood Urea Nitrogen 83 H Creatinine 2.72 H Glucose Level 56 #L Calcium Level 7.7 L Total Bilirubin 0.7 Direct Bilirubin 0.10 Indirect Bilirubin 0.6 Aspartate Amino Transf (AST/SGOT) 438 H Alanine Aminotransferase (ALT/SGPT) 240 H Alkaline Phosphatase 332 H Total Protein 5.6 L Albumin 2.5 L Globulin 3.10 Albumin/Globulin Ratio 0.80 Test 10/11/16 04:42 10/11/16 05:06 10/11/16 06:44 Bedside Glucose 63 L 87 99 Medications Medications Current Medications Acetaminophen (Tylenol Liquid) 650 mg Q4H PRN NGT PAIN AND OR ELEVATED TEMP Last administered on 09/27/16 05:14; Admin Dose 650 MG; Start 09/21/16 at 02:00 Eye Lubricant (Artificial Tears Oph) 2 drop QID BOTH EYES Last administered on 10/10/16 20:44; Admin Dose 2 DROP; Start 09/21/16 at 09:00 Atorvastatin Calcium (Lipitor) 80 mg HS NGT Last administered on 10/10/16 20:44 ; Admin Dose 80 MG; Start 09/22/16 at 21:00 Pantoprazole (Protonix Iv) 40 mg AM IV Last administered on 10/10/16 08:33; Admin Dose 40 MG; Start 09/26/16 at 09:00 Epoetin Raj (Epogen (Esrd)) 10,000 units TuThSa@17 SC Last administered on 10/10 20:44; Admin Dose 10,000 UNITS; Start 09/26/16 at 17:00 IV Flush (NS 10 ml) 10 ml PRN PRN IV IV PROTOCOL; Start 09/26/16 at 17:30 Aspirin (Aspirin) 81 mg DAILY NGT Last administered on 10/10/16 08:33; Admin Dose 81 MG; Start 09/27/16 at 09:00 Clopidogrel Bisulfate 75 mg 75 mg DAILY NGT Last administered on 10/10/16 08:33 ; Admin Dose 75 MG; Start 09/27/16 at 09:00 Piperacillin Sod/ Tazobactam Sod (Zosyn 2.25gm/ 50ml (Pmx)) 50 ml @ 100 mls/hr Q8 IVPB Last administered on 10/11/16 06:22; Admin Dose 100 MLS/HR; Start 09/28 at 14:00 Morphine Sulfate (morphine) 2 mg Q4H PRN IV PAIN Last administered on 10/11/16 06:42; Admin Dose 2 MG; Start 09/28/16 at 16:00 Sodium Biphosphate/ Sodium Phosphate 133 ml 133 ml DAILY PRN SC CONSTIPATION Last administered on 10/09/16 00:50; Admin Dose 133 ML; Start 10/01/16 at 17:00 Norepinephrine/ Dextrose (Levophed/D5W) 500 ml @ 1.87 mls/hr TITRATE IV ; Start 10/04/16 at 07:00 Fluconazole (Diflucan) 100 mg DAILY GTB Last administered on 10/10/16 08:37; Admin Dose 100 MG; Start 10/05/16 at 09:00 Insulin Glargine 50 unit 50 unit DAILY@08 SC Last administered on 10/10/16 08: 27; Admin Dose 50 UNIT; Start 10/06/16 at 08:00 Midazolam HCl 50 ml @ 1 mls/hr TITRATE IV Last administered on 10/07/16 09:47; Admin Dose 3 MLS/HR; Start 10/07/16 at 10:00 Dopamine HCl/ Dextrose 250 ml @ 7.5 mls/hr TITRATE IV Last administered on 10/07 11:00; Admin Dose 37.5 MLS/HR; Start 10/07/16 at 11:30 Lactobacillus Acidoph/Bulgaricus (Floranex) 1 tab TID PO Last administered on 20:44; Admin Dose 1 TAB; Start 10/09/16 at 21:00 Insulin Aspart (Novolog Insulin Pen) NOVOLOG *MODERATE* ALGORI... Q6 SC Last administered on 10/09/16 23:42; Admin Dose 2 UNIT; Start 10/10/16 at 00:00 Miscellaneous Information 1 ea NOTE XX ; Start 10/09/16 at 20:30 Glucose (Glutose) 15 gm Q15M PRN PO DECREASED GLUCOSE; Start 10/09/16 at 20:30 Glucose (Glutose) 22.5 gm Q15M PRN PO DECREASED GLUCOSE; Start 10/09/16 at 20:30 Dextrose (D50w Syringe) 25 ml Q15M PRN IV DECREASED GLUCOSE Last administered on 10/11/16 04:48; Admin Dose 25 ML; Start 10/09/16 at 20:30 Dextrose (D50w Syringe) 50 ml Q15M PRN IV DECREASED GLUCOSE; Start 10/09/16 at 20:30 Glucagon (Glucagen) 1 mg Q15M PRN IM DECREASED GLUCOSE; Start 10/09/16 at 20:30 Glucose (Glutose) 15 gm Q15M PRN BUCCAL DECREASED GLUCOSE; Start 10/09/16 at 20: 30 DAMIR MARTINEZ MD Oct 11, 2016 08:27
[2016-10-11] MEDS: FLUCONAZOLE 100 MG TAB GTB SCH (09:00)
[2016-10-11] MEDS: CLOPIDOGREL 75 MG TAB NGT SCH (09:00)
[2016-10-11] MEDS: ASPIRIN 81 MG TAB NGT SCH (09:00)
[2016-10-11] MEDS: LACTOBACILLUS CHEW TAB PO SCH ×3 (09:00→21:49)
[2016-10-11] MEDS ORDERED: PROPOFOL 100 ML ONE (09:35)
[2016-10-11] MEDS: PANTOPRAZOLE 40 MG INJ IV SCH (09:47)
[2016-10-11] MEDS: ARTIFICIAL TEARS 15 ML OPH BOTH EYES SCH ×4 (09:47→21:55)
[2016-10-11] MEDS: PROPOFOL 100 ML IV SCH ×2 (09:48→22:47)
--- NOTE | 2016-10-11 10:04 | RADRPT ---
PROCEDURE: XR Chest. CLINICAL INDICATION: Shortness of breath. TECHNIQUE: Single frontal view. COMPARISON: 10/08/2016. FINDINGS: The endotracheal tube, nasogastric tube, left arm PICC line are in satisfactory position. There is mild atelectasis in the right upper lobe, improved. Right basilar atelectasis is unchanged. The le ft lung is clear. The heart size is normal. There is no pleural effusion. There is no pneumothorax. IMPRESSION: 1. Improved appearance of the right upper lobe. 2. No other change from 10/08/2016. RPTAT: QQ .Arnaldo Back MD, MD Date Time Electronically viewed and signed by .Arnaldo Back MD, on 10/11/2016 10:04 .R/
--- NOTE | 2016-10-11 10:37 | PN ---
Date/Time of Note Date/Time of Note DATE: 10/11/16 TIME: 10:35 Assessment/Plan Lines/Catheters IV Catheter Type (from Nrsg): PICC Line Rivas in Place (from Nrsg): Yes Assessment/Plan Chief Complaint/Hosp Course -Acute renal failure: S/P Emergent Maninder catheter placement. Scheduled for Perm cath today with IR -Left Axillary vein thrombosis: It seems the has developed DVT likely related to the left PICC line. Recommend removal of the line and to start anticoagulation post perm catheter placement -Bilateral lower extremity atherosclerosis with gangrene: It seems the patient has developed bilateral toe discoloration/gangrene. it may be related to her being on pressors for some time and possible blue toe syndrome. Will likely require a new Echo for eval of mural thrombus and CTA of abdomen and pelvis for possible aortoiliac disease as a source. However considering recent renal failure will await her renal function -Will obtain lower extremity arterial ultrasound -Optimize vascular status (BP meds, diet, nutrition, exercise, sugar control, antiplatelets). -Discussed findings, plan and management with the primary service, and we will plan to notify family. -Thank you for allowing us to partake in the care of your patient. Please call with any questions. Problems: Subjective 24 Hr Interval Summary no new vascular events overnight, still requiring HD Exam/Review of Systems Vital Signs Vitals Vital Signs Date Time Temp Pulse Resp B/P Pulse Ox O2 Delivery O2 Flow Rate FiO2 10/11/16 07:51 79 17 100 30 10/11/16 07:00 88/53 Mechanical Ventilator T Tube 10/11/16 04:00 97.2 Intake and Output 10/10/16 10/10/16 10/11/16 15:00 23:00 07:00 Intake Total 400 ml 890 ml 180 ml Output Total 310 ml 2587 ml 145 ml Balance 90 ml -1697 ml 35 ml Exam Free Text/Dictation GENERAL: Intubated and nonverbal, awake PULMONARY: Coarse breath sounds bilaterally. CARDIOVASCULAR: S1, S2 present. ABDOMEN: Soft, nontender, nondistended. Bowel sounds positive. Large truncal obesity and pannus. LOWER EXTREMITIES: RLE: Unable to palpate femoral pulse secondary to body habitus, nonpalpable pedal pulses. Motor, sensory, unable to ascertain secondary to being intubated. Capillary refill 3 to 4 seconds.right 1st toe gangrene and other toes with blue/purple discoloration LLE: Unable to palpate femoral pulse secondary to body habitus, nonpalpable pedal pulses. Motor, sensory, unable to ascertain secondary to being intubated. Capillary refill 3 to 4 seconds. Left 2st toe gangrene and other toes with blue/purple discoloration Results Result Diagram: 10/11/16 0440 10/11/16 0440 OG RODAS MD Oct 11, 2016 10:37
--- NOTE | 2016-10-11 10:40 | CONS ---
Date/Time of Note Date/Time of Note DATE: 10/11/16 TIME: 10:36 Consult Date/Type/Reason Admit Date/Time Sep 20, 2016 at 19:21 Initial Consult Date 09/23/16 Type of Consultation: pulmonary ICU Ordering Provider: ZANDRA ROBISON MD, [facility] Subjective Patient continues mechanical ventilation. She did not tolerate SIMV ventilation yesterday complaining of increasing shortness of breath with panic attacks Currently he remains awake alert oriented orally intubated Family at bedside Objective Vital Signs Date Time Temp Pulse Resp B/P Pulse Ox O2 Delivery O2 Flow Rate FiO2 10/11/16 07:51 79 17 100 30 10/11/16 07:00 88/53 Mechanical Ventilator T Tube 10/11/16 04:00 97.2 Intake and Output 10/10/16 10/10/16 10/11/16 15:00 23:00 07:00 Intake Total 400 ml 890 ml 180 ml Output Total 310 ml 2587 ml 145 ml Balance 90 ml -1697 ml 35 ml Exam PHYSICAL EXAMINATION GENERAL: Elderly lady orally intubated on mechanical ventilation VITAL SIGNS: see below. HEENT: Pupils equal, round, and reactive to light. CARDIAC: S1, S2, 2/6 systolic ejection murmur CHEST: Diminished air entry bilaterally. ABDOMEN: Mildly distended. Obese soft nontender bowel sounds present EXTREMITIES: No cyanosis, clubbing edema +1 NEUROLOGIC: No focal deficits. Results/Medications Result Diagram: 10/11/16 0440 10/11/16 0440 Results 24 hrs Laboratory Tests Test 10/10/16 12:24 10/10/16 16:46 10/11/16 00:33 10/11/16 01:03 Bedside Glucose 103 95 64 L 88 Test 10/11/16 02:16 10/11/16 02:45 10/11/16 04:40 10/11/16 04:42 Bedside Glucose 67 L 81 63 L White Blood Count 12.4 H Red Blood Count 3.08 L Hemoglobin 9.0 L Hematocrit 29.8 L Mean Corpuscular Volume 96.8 Mean Corpuscular Hemoglobin 29.2 Mean Corpuscular Hemoglobin Concent 30.2 L Red Cell Distribution Width 24.7 H Platelet Count 96 L Mean Platelet Volume 12.9 H Neutrophils % 85.8 H Lymphocytes % 7.0 L Monocytes % 5.7 Eosinophils % 0.6 Basophils % 0.1 Nucleated Red Blood Cells % 0.4 H Neutrophils # 10.6 H Lymphocytes # 0.9 Monocytes # 0.7 Eosinophils # 0.1 Basophils # 0.0 Nucleated Red Blood Cells # 0.1 H Prothrombin Time 14.6 H Prothrombin Time Ratio 1.1 INR International Normalized Ratio 1.14 Activated Partial Thromboplast Time 26.9 Sodium Level 136 Potassium Level 3.9 Chloride Level 102 Carbon Dioxide Level 25 Anion Gap 13 # Blood Urea Nitrogen 83 H Creatinine 2.72 H Glucose Level 56 #L Calcium Level 7.7 L Total Bilirubin 0.7 Direct Bilirubin 0.10 Indirect Bilirubin 0.6 Aspartate Amino Transf (AST/SGOT) 438 H Alanine Aminotransferase (ALT/SGPT) 240 H Alkaline Phosphatase 332 H Total Protein 5.6 L Albumin 2.5 L Globulin 3.10 Albumin/Globulin Ratio 0.80 Test 10/11/16 05:06 10/11/16 06:44 Bedside Glucose 87 99 Medications Current Medications Acetaminophen (Tylenol Liquid) 650 mg Q4H PRN NGT PAIN AND OR ELEVATED TEMP Last administered on 09/27/16 05:14; Admin Dose 650 MG; Start 09/21/16 at 02:00 Eye Lubricant (Artificial Tears Oph) 2 drop QID BOTH EYES Last administered on 10/11/16 09:47; Admin Dose 2 DROP; Start 09/21/16 at 09:00 Atorvastatin Calcium (Lipitor) 80 mg HS NGT Last administered on 10/10/16 20:44 ; Admin Dose 80 MG; Start 09/22/16 at 21:00 Pantoprazole (Protonix Iv) 40 mg AM IV Last administered on 10/11/16 09:47; Admin Dose 40 MG; Start 09/26/16 at 09:00 Epoetin Raj (Epogen (Esrd)) 10,000 units TuThSa@17 SC Last administered on 10/10 20:44; Admin Dose 10,000 UNITS; Start 09/26/16 at 17:00 IV Flush (NS 10 ml) 10 ml PRN PRN IV IV PROTOCOL; Start 09/26/16 at 17:30 Aspirin (Aspirin) 81 mg DAILY NGT Last administered on 10/10/16 08:33; Admin Dose 81 MG; Start 09/27/16 at 09:00 Clopidogrel Bisulfate 75 mg 75 mg DAILY NGT Last administered on 10/10/16 08:33 ; Admin Dose 75 MG; Start 09/27/16 at 09:00 Piperacillin Sod/ Tazobactam Sod (Zosyn 2.25gm/ 50ml (Pmx)) 50 ml @ 100 mls/hr Q8 IVPB Last administered on 10/11/16 06:22; Admin Dose 100 MLS/HR; Start 09/28 at 14:00 Morphine Sulfate (morphine) 2 mg Q4H PRN IV PAIN Last administered on 10/11/16 06:42; Admin Dose 2 MG; Start 09/28/16 at 16:00 Sodium Biphosphate/ Sodium Phosphate 133 ml 133 ml DAILY PRN [place] CONSTIPATION Last administered on 10/09/16 00:50; Admin Dose 133 ML; Start 10/01/16 at 17:00 Norepinephrine/ Dextrose (Levophed/D5W) 500 ml @ 1.87 mls/hr TITRATE IV ; Start 10/04/16 at 07:00 Fluconazole (Diflucan) 100 mg DAILY GTB Last administered on 10/10/16 08:37; Admin Dose 100 MG; Start 10/05/16 at 09:00 Insulin Glargine 50 unit 50 unit DAILY@08 SC Last administered on 10/10/16 08: 27; Admin Dose 50 UNIT; Start 10/06/16 at 08:00 Midazolam HCl 50 ml @ 1 mls/hr TITRATE IV Last administered on 10/07/16 09:47; Admin Dose 3 MLS/HR; Start 10/07/16 at 10:00 Dopamine HCl/ Dextrose 250 ml @ 7.5 mls/hr TITRATE IV Last administered on 10/07 11:00; Admin Dose 37.5 MLS/HR; Start 10/07/16 at 11:30 Lactobacillus Acidoph/Bulgaricus (Floranex) 1 tab TID PO Last administered on 20:44; Admin Dose 1 TAB; Start 10/09/16 at 21:00 Insulin Aspart (Novolog Insulin Pen) NOVOLOG *MODERATE* ALGORI... Q6 SC Last administered on 10/09/16 23:42; Admin Dose 2 UNIT; Start 10/10/16 at 00:00 Miscellaneous Information 1 ea NOTE XX ; Start 10/09/16 at 20:30 Glucose (Glutose) 15 gm Q15M PRN PO DECREASED GLUCOSE; Start 10/09/16 at 20:30 Glucose (Glutose) 22.5 gm Q15M PRN PO DECREASED GLUCOSE; Start 10/09/16 at 20:30 Dextrose (D50w Syringe) 25 ml Q15M PRN IV DECREASED GLUCOSE Last administered on 10/11/16 04:48; Admin Dose 25 ML; Start 10/09/16 at 20:30 Dextrose (D50w Syringe) 50 ml Q15M PRN IV DECREASED GLUCOSE; Start 10/09/16 at 20:30 Glucagon (Glucagen) 1 mg Q15M PRN IM DECREASED GLUCOSE; Start 10/09/16 at 20:30 Glucose 15 gm 15 gm Q15M PRN BUCCAL DECREASED GLUCOSE; Start 10/09/16 at 20:30 Propofol (Diprivan) 100 ml @ 3 mls/hr Q12H IV Last administered on 10/11/16 09: 48; Admin Dose 3 MLS/HR; Start 10/11/16 at 09:30 Assessment/Plan Chief Complaint/Hosp Course IMPRESSION 1. Status post Cardiac arrest. ST elevation VA stent placement to RCA significant bradycardia possibly vasovagal 2. Significant neurological recovery from initial encephalopathy 3. Acute renal failure, probably acute tubular necrosis injury. Now on hemodialysis 4. Status post Shock liver. 5. Hypoxemic respiratory failure now reintubated chest x-ray demonstrating opacification of right lung likely secondary to mucous plugging, improved aeration right lung following bronchoscopy and addition of Mucomyst. 6. Currently not weanable from mechanical ventilation secondary to component of anxiety and/or significant neuromuscular weakness. Plan 1. Continue mechanical ventilation. Trial of SIMV if patient is able to tolerate otherwise patient will likely need tracheostomy and G-tube 2. Continue renal recommendations. Hemodialysis as tolerated 3. Vasopressors if needed 4. Broad-spectrum antibiotic coverage. 5. Continue DVT and GI prophylaxis 6. Continue nasogastric tube feeding as tolerated Disposition Continue ICU supportive care Discussed with family at bedside Critical care time 35 minutes Problems: ZANDRA ROBISON MD, [facility] Oct 11, 2016 10:39
[2016-10-11] MEDS ORDERED: CEFAZOLIN 1 GM/50 ML (PMX) 50 ML IVPB ONE (11:11)
[2016-10-11] MEDS ORDERED: LIDOCAINE 1% (MDV) 20 ML INJ ONE (11:11)
[2016-10-11] MEDS ORDERED: MIDAZOLAM 1 MG/ML 2 ML INJ ONE (11:11)
[2016-10-11] MEDS ORDERED: HEPARIN 1000 UNITS/ML 10 ML INJ ONE (11:11)
[2016-10-11] MEDS ORDERED: FENTAnyl 50 MCG/ML VIAL ONE (11:12)
--- NOTE | 2016-10-11 12:46 | CONS ---
Date/Time of Note Date/Time of Note DATE: 10/11/16 TIME: 12:45 Assessment/Plan Assessment/Plan Chief Complaint/Hosp Course SUBJECTIVE: No events overnight. No fevers. The patient is lying comfortably in bed. INDWELLINGS: ET tube, OG tube, right femoral Maninder and PICC line. ANTIMICROBIALS: The patient is on: 1. Zosyn. 2. Diflucan. PHYSICAL EXAMINATION: GENERAL: This is an obese, well-developed, elderly woman who is in no distress. HEENT: Head atraumatic, normocephalic. Sclerae anicteric. Buccal mucosa dry. NECK: Supple. CHEST: Rise symmetrical. Breath sounds diminished to bases. HEART: S1, S2. ABDOMEN: Soft. Bowel tones present. EXTREMITIES: Bilateral toe cyanosis. ASSESSMENT: 1. Resolving sepsis. 2. Resolving pneumonia. 3. Erica albicans urinary tract infection. 4. Acute on chronic kidney disease. 5. Acute myocardial infarction, status post percutaneous transluminal coronary angioplasty. 6. Paroxysmal atrial fibrillation. PLAN: The patient remains hemodynamically stable. We are going to discontinue Zosyn. Keep her on Diflucan. Pending Maninder catheter change. Follow recommendations of consultants. OLIVIER RN Problems: Consultation Date/Type/Reason Admit Date/Time Sep 20, 2016 at 19:21 Initial Consult Date 09/23/16 Type of Consultation: ID Referring Provider: ZANDRA ROBISON MD, [facility] Exam/Review of Systems Vital Signs Vitals Vital Signs Date Time Temp Pulse Resp B/P Pulse Ox O2 Delivery O2 Flow Rate FiO2 10/11/16 08:00 73 10/11/16 07:51 17 100 30 10/11/16 07:00 88/53 Mechanical Ventilator T Tube 10/11/16 04:00 97.2 Intake and Output 10/10/16 10/10/16 10/11/16 15:00 23:00 07:00 Intake Total 400 ml 890 ml 180 ml Output Total 310 ml 2587 ml 145 ml Balance 90 ml -1697 ml 35 ml Results Result Diagram: 10/11/16 0440 10/11/16 0440 Results 24 hrs Laboratory Tests Test 10/10/16 16:46 10/11/16 00:33 10/11/16 01:03 10/11/16 02:16 Bedside Glucose 95 64 L 88 67 L Test 10/11/16 02:45 10/11/16 04:40 10/11/16 04:42 10/11/16 05:06 Bedside Glucose 81 63 L 87 White Blood Count 12.4 H Red Blood Count 3.08 L Hemoglobin 9.0 L Hematocrit 29.8 L Mean Corpuscular Volume 96.8 Mean Corpuscular Hemoglobin 29.2 Mean Corpuscular Hemoglobin Concent 30.2 L Red Cell Distribution Width 24.7 H Platelet Count 96 L Mean Platelet Volume 12.9 H Neutrophils % 85.8 H Lymphocytes % 7.0 L Monocytes % 5.7 Eosinophils % 0.6 Basophils % 0.1 Nucleated Red Blood Cells % 0.4 H Neutrophils # 10.6 H Lymphocytes # 0.9 Monocytes # 0.7 Eosinophils # 0.1 Basophils # 0.0 Nucleated Red Blood Cells # 0.1 H Prothrombin Time 14.6 H Prothrombin Time Ratio 1.1 INR International Normalized Ratio 1.14 Activated Partial Thromboplast Time 26.9 Sodium Level 136 Potassium Level 3.9 Chloride Level 102 Carbon Dioxide Level 25 Anion Gap 13 # Blood Urea Nitrogen 83 H Creatinine 2.72 H Glucose Level 56 #L Calcium Level 7.7 L Total Bilirubin 0.7 Direct Bilirubin 0.10 Indirect Bilirubin 0.6 Aspartate Amino Transf (AST/SGOT) 438 H Alanine Aminotransferase (ALT/SGPT) 240 H Alkaline Phosphatase 332 H Total Protein 5.6 L Albumin 2.5 L Globulin 3.10 Albumin/Globulin Ratio 0.80 Test 10/11/16 06:44 Bedside Glucose 99 Medications Medications Current Medications Acetaminophen (Tylenol Liquid) 650 mg Q4H PRN NGT PAIN AND OR ELEVATED TEMP Last administered on 09/27/16 05:14; Admin Dose 650 MG; Start 09/21/16 at 02:00 Eye Lubricant (Artificial Tears Oph) 2 drop QID BOTH EYES Last administered on 10/11/16 09:47; Admin Dose 2 DROP; Start 09/21/16 at 09:00 Atorvastatin Calcium (Lipitor) 80 mg HS NGT Last administered on 10/10/16 20:44 ; Admin Dose 80 MG; Start 09/22/16 at 21:00 Pantoprazole (Protonix Iv) 40 mg AM IV Last administered on 10/11/16 09:47; Admin Dose 40 MG; Start 09/26/16 at 09:00 Epoetin Raj (Epogen (Esrd)) 10,000 units TuThSa@17 SC Last administered on 10/10 20:44; Admin Dose 10,000 UNITS; Start 09/26/16 at 17:00 IV Flush (NS 10 ml) 10 ml PRN PRN IV IV PROTOCOL; Start 09/26/16 at 17:30 Aspirin (Aspirin) 81 mg DAILY NGT Last administered on 10/10/16 08:33; Admin Dose 81 MG; Start 09/27/16 at 09:00 Clopidogrel Bisulfate 75 mg 75 mg DAILY NGT Last administered on 10/10/16 08:33 ; Admin Dose 75 MG; Start 09/27/16 at 09:00 Piperacillin Sod/ Tazobactam Sod (Zosyn 2.25gm/ 50ml (Pmx)) 50 ml @ 100 mls/hr Q8 IVPB Last administered on 10/11/16 06:22; Admin Dose 100 MLS/HR; Start 09/28 at 14:00 Morphine Sulfate (morphine) 2 mg Q4H PRN IV PAIN Last administered on 10/11/16 06:42; Admin Dose 2 MG; Start 09/28/16 at 16:00 Sodium Biphosphate/ Sodium Phosphate 133 ml 133 ml DAILY PRN [place] CONSTIPATION Last administered on 10/09/16 00:50; Admin Dose 133 ML; Start 10/01/16 at 17:00 Norepinephrine/ Dextrose (Levophed/D5W) 500 ml @ 1.87 mls/hr TITRATE IV ; Start 10/04/16 at 07:00 Fluconazole (Diflucan) 100 mg DAILY GTB Last administered on 10/10/16 08:37; Admin Dose 100 MG; Start 10/05/16 at 09:00 Insulin Glargine 50 unit 50 unit DAILY@08 SC Last administered on 10/10/16 08: 27; Admin Dose 50 UNIT; Start 10/06/16 at 08:00 Midazolam HCl 50 ml @ 1 mls/hr TITRATE IV Last administered on 10/07/16 09:47; Admin Dose 3 MLS/HR; Start 10/07/16 at 10:00 Dopamine HCl/ Dextrose 250 ml @ 7.5 mls/hr TITRATE IV Last administered on 10/07 11:00; Admin Dose 37.5 MLS/HR; Start 10/07/16 at 11:30 Lactobacillus Acidoph/Bulgaricus (Floranex) 1 tab TID PO Last administered on 20:44; Admin Dose 1 TAB; Start 10/09/16 at 21:00 Insulin Aspart (Novolog Insulin Pen) NOVOLOG *MODERATE* ALGORI... Q6 SC Last administered on 10/09/16 23:42; Admin Dose 2 UNIT; Start 10/10/16 at 00:00 Miscellaneous Information 1 ea NOTE XX ; Start 10/09/16 at 20:30 Glucose (Glutose) 15 gm Q15M PRN PO DECREASED GLUCOSE; Start 10/09/16 at 20:30 Glucose (Glutose) 22.5 gm Q15M PRN PO DECREASED GLUCOSE; Start 10/09/16 at 20:30 Dextrose (D50w Syringe) 25 ml Q15M PRN IV DECREASED GLUCOSE Last administered on 10/11/16 04:48; Admin Dose 25 ML; Start 10/09/16 at 20:30 Dextrose (D50w Syringe) 50 ml Q15M PRN IV DECREASED GLUCOSE; Start 10/09/16 at 20:30 Glucagon (Glucagen) 1 mg Q15M PRN IM DECREASED GLUCOSE; Start 10/09/16 at 20:30 Glucose 15 gm 15 gm Q15M PRN BUCCAL DECREASED GLUCOSE; Start 10/09/16 at 20:30 Propofol (Diprivan) 100 ml @ 3 mls/hr Q12H IV Last administered on 10/11/16 09: 48; Admin Dose 3 MLS/HR; Start 10/11/16 at 09:30 ROSALINA SIMS NP Oct 11, 2016 12:46
[2016-10-11 13:33] LABS: AADO2 Arterial 72.3 mmHg (7.0-24.0); Allen Test ACCEPTAB; Arterial Base Excess 1.4 mmol/L (-3.0-3); Arterial COHb 0.3 % (0.0-3.0); Arterial Fraction of Oxyhgb 96.9 % (93.0-99.0); Arterial HCO3 24.3 mmol/L (22.0-26.0); Arterial MetHb 0.3 % (0.0-1.5); Arterial Total Hemglobin 10.4 g/dl (12.0-18.0); MODE VENT - AC
--- NOTE | 2016-10-11 15:23 | RADRPT ---
Vent Rate: 102 bpm RR Interval: 0 msec MI Interval: 0 msec QRS Duration: 82 msec QT Interval: 342 msec QTC Interval: 445 msec P-R-T [place]: 0 - 5 - 90 degrees Atrial fibrillation with controlled ventricular response Low voltage QRS Abnormal ECG Electronically Signed By: Salbador Martinez [id number]
--- NOTE | 2016-10-11 15:28 | RADRPT ---
PROCEDURE: Ultrasound guidance for placement of needle in right internal jugular vein. CLINICAL INDICATION: Venous access. TECHNIQUE: Prior to the procedure, informed consent was obtained. Risks including bleeding, infection, and pneu mothorax were explained to the patient. The patient understood and was willing to proceed. A procedu ral pause was performed. The patient's name, date of , and procedure to be performed were verif ied. The central line was inserted with all elements of maximal sterile barrier technique. All of th e following were used: head covering, facial mask, sterile gown, sterile gloves, a large sterile she et, hand hygiene, and 2% chlorhexidine for cutaneous antisepsis. The right neck and anterior/super ior chest wall was prepped and draped in usual sterile fashion. Limited sonography of the right neck was then performed. Noted is a patent right internal jugular ve in. Ultrasound images were recorded and stored in the patient's medical record. Following the local injection of Xylocaine, the right internal jugular vein was punctured under sono graphic guidance with a 20-gauge needle through which a 0.018 inch floppy tip guidewire was advanced into the superior vena cava. The patient tolerated the procedure well. The remainder of the proce dure was performed and dictated under separate cover. COMPARISON: None. FINDINGS: The ultrasound images demonstrate a patent right internal jugular vein. The subsequent images demon strate the needle entering the right internal jugular vein. IMPRESSION: 1. Ultrasound guidance for a needle placement in right internal jugular vein. RPTAT: QQ .Arnaldo Back MD, Date Time Electronically viewed and signed by .Arnaldo Back MD, on 10/11/2016 15:28 .R/
--- NOTE | 2016-10-11 15:30 | RADRPT ---
PROCEDURE: PLACEMENT OF RIGHT INTERNAL JUGULAR VENOUS TUNNELED DIALYSIS CATHETER. CLINICAL INDICATION: Renal failure. TECHNIQUE: Prior to the procedure, informed consent was obtained. Risks including bleeding, infection, and pneu mothorax were explained to the patient and/or the patient's family. The patient and/or the patient's family understood and was willing to proceed. A procedural pause was performed. The patient's name, date of , and procedure to be performed were verified. The central line was inserted with all elements of maximal sterile barrier technique. All of the following were used: head covering, facial mask, sterile gown, sterile gloves, a large sterile sheet, hand hygiene, and 2% chlorhexidine for cutaneous antisepsis. The right neck and anterior/superior chest wall was prepped and draped in usu al sterile fashion. Limited sonography of the right neck was then performed. Noted is a patent right internal jugular ve in. Ultrasound images were recorded and stored in the patient's medical record. Following the local injection of Xylocaine, the right internal jugular vein was punctured under sono graphic guidance with a 20-gauge needle through which a 0.018 inch floppy tip guidewire was advanced into the superior vena cava. The tract was dilated to 5 Nepali and the wire was then replaced with a 0.035 in Amplatz guidewire. A tunnel was then created from the anterior lateral aspect of the sup erior right chest wall to the puncture site in the neck and the catheter was pulled through the trac t. Serial dilatation was then performed and a 16 Nepali peel away sheath was introduced. The 14.5 Nepali 23cm tip to cuff Angiodynamics BioFlo DuraMax dialysis catheter was advanced through the 16 F rench peel-away sheath. The tip of the catheter was confirmed in position within the right atrium. T he peel-away sheath was removed. The 2 ports were each flushed with 2.3 ml of 1:1000 heparin. The c atheter was secured to the skin with 2-0 silk. The wound in the neck was closed with 4-0 Vicryl suture using subcuticular running technique. The site was dressed. The patient tolerated the proce dure well. COMPARISON: None. FINDINGS: Final radiographic images demonstrate the tip of the catheter in the upper right atrium. A total of 0.1 minutes of fluoroscopy time was used. The ultrasound images demonstrate the needle entering th e jugular vein. Ultrasound images were recorded and stored in the patient's medical record. IMPRESSION: 1. Percutaneous insertion of right internal jugular dialysis tunneled dialysis catheter under fluoro scopic and sonographic guidance. RPTAT: QQ .Arnaldo Back MD, Date Time Electronically viewed and signed by .Arnaldo Back MD, MD on 10/11/2016 15:30 .R/
--- NOTE | 2016-10-11 16:59 | RADRPT ---
PROCEDURE: US bilateral lower extremity arteries. CLINICAL INDICATION: Bilateral leg pain. Claudication that interferes significantly with the patric ent's lifestyle. Left second toe gangrene. TECHNIQUE: Multiple longitudinal and transverse images of the bilateral lower extremity arteries w ere obtained with sandhu scale, pulsed Doppler, and color Doppler imaging. COMPARISON: No prior studies are available for comparison. FINDINGS: Right INDUSTRIAL GAS FITTER HELPER:104 cm/sec PSFA:18 cm/sec MSFA:67 cm/sec DSFA:58 cm/sec POP:60 cm/sec PARIMUTUEL TICKET CASHIER:32 cm/sec DPA:20 cm/sec Left INDUSTRIAL GAS FITTER HELPER:81 cm/sec PSFA:78 cm/sec MSFA:55 cm/sec DSFA:60 cm/sec POP:59 cm/sec PARIMUTUEL TICKET CASHIER:28 cm/sec DPA:17 cm/sec The right ankle-brachial index is 1.4 and the left ankle-brachial index is 1.3. There is normal triphasic flow throughout the arterial system of both lower extremities. There is n o significant plaque, stenosis, or occlusion. IMPRESSION: 1. Normal bilateral lower extremity arterial Doppler. RPTAT: QQ .Arnaldo Back MD, MD Date Time Electronically viewed and signed by .Arnaldo Back MD, MD on 10/11/2016 16:59 .R/
[2016-10-11] MEDS: DEXTROSE 5%-0.225% NACL 1,000 ML IV SCH (18:30)
[2016-10-11] MEDS: ATORVASTATIN 80 MG TAB NGT SCH (21:49)
[2016-10-11] MEDS: HEPARIN 5,000 UNIT/0.5 ML VIAL SC SCH (21:55)
[2016-10-12] VITALS (65 sets, daily range): BP systolic 92–135; BP diastolic 47–76; PULSE 63–102; RESP 14–26
[2016-10-12] MEDS: IPRATROPIUM (HFA) 12.9 GM INHALER INH SCH ×4 (01:31→20:01)
[2016-10-12] MEDS: LEVALBUTEROL (HFA) 15 GM INHALER INH SCH ×4 (01:31→20:01)
[2016-10-12] MEDS: ACETYLCYSTEINE 20% 4 ML VIAL NEB SCH ×4 (01:31→20:01)
[2016-10-12] MEDS: morphine 2 MG INJ IV PRN ×4 (03:48→23:30)
[2016-10-12] MEDS: INSULIN ASPART [NOVOLOG] 3 ML PEN SC SCH ×3 (04:07→17:39)
[2016-10-12 04:41] LABS: ADD SCAN DIFF NO
[2016-10-12 05:15] LABS: ABNORMAL IP MESSAGE 1; BASOPHILS % 0.2 % (0.0-2.0); EOSINOPHILS % 0.3 % (0.0-7.0); HEMATOCRIT 29.3 % (37.0-47.0); HEMOGLOBIN 9.1 g/dl (12.0-16.0); LYMPHOCYTES # 0.9 10^3/ul (0.8-2.9); LYMPHOCYTES % 6.5 % (15.0-51.0); MEAN CORPUSCULAR HEMOGLOBIN 30.3 pg (29.0-33.0); MEAN CORPUSCULAR HGB CONC 31.1 g/dl (32.0-37.0); MEAN CORPUSCULAR VOLUME 97.7 fl (82.0-101.0); MEAN PLATELET VOLUME 12.4 fl (7.4-10.4); MONOCYTE # 0.7 10^3/ul (0.3-0.9); MONOCYTES % 5.2 % (0.0-11.0); NEUTROPHIL # 11.5 10^3/ul (1.6-7.5); NUCLEATED RED BLOOD CELLS # 0.1 10^3/ul (0.0-0.0); NUCLEATED RED BLOOD CELLS% 0.5 /100WBC (0.0-0.0); PLATELET COUNT 110 10^3/UL (140-415); RED CELL DISTRIBUTION WIDTH 25.3 % (11.5-14.5); WHITE BLOOD COUNT 13.2 10^3/ul (4.8-10.8)
[2016-10-12 05:26] LABS: POTASSIUM 3.6 mmol/L (3.5-5.1)
[2016-10-12 05:29] LABS: CALCIUM 7.4 mg/dl (8.4-10.2); MAGNESIUM 2.1 mg/dl (1.7-2.5); PHOSPHORUS 6.7 mg/dl (2.5-4.9)
[2016-10-12 05:35] LABS: CREATININE 2.89 mg/dl (0.44-1.00)
[2016-10-12] MEDS: FLUCONAZOLE 100 MG TAB GTB SCH (09:09)
[2016-10-12] MEDS: CLOPIDOGREL 75 MG TAB NGT SCH (09:09)
[2016-10-12] MEDS: ASPIRIN 81 MG TAB NGT SCH (09:09)
[2016-10-12] MEDS: LACTOBACILLUS CHEW TAB PO SCH ×3 (09:11→20:29)
[2016-10-12] MEDS: ARTIFICIAL TEARS 15 ML OPH BOTH EYES SCH ×4 (09:11→20:29)
[2016-10-12] MEDS: HEPARIN 5,000 UNIT/0.5 ML VIAL SC SCH ×2 (09:14→20:33)
[2016-10-12] MEDS: INSULIN GLARGINE [LANtus] 3 ML PEN SC SCH (09:15)
[2016-10-12] MEDS: PANTOPRAZOLE 40 MG INJ IV SCH (09:15)
[2016-10-12] MEDS: PROPOFOL 100 ML IV SCH ×2 (09:30→23:29)
--- NOTE | 2016-10-12 11:01 | RADRPT ---
PROCEDURE: XR Chest. CLINICAL INDICATION: chest pain TECHNIQUE: Single AP view of the chest were obtained COMPARISON: 10/08/2016 FINDINGS: The heart is again borderline enlarged. The pulmonary vasculature are unremarkable. The aorta demon strates atherosclerotic calcifications. Previously seen right upper lung opacity ascends nearly res olved. There is a mild right basilar opacity with a small right effusion. The left lung is clear w ith exception of trace basilar atelectasis. Degenerative changes are seen within the thoracic spine . There is no acute osseous abnormality. Endotracheal tube tip terminates in the trachea above the mary. There is a gastric catheter which extends to below the GE junction. A central line catheter is seen with terminates at the SVC. Rig ht-sided double-lumen catheter has been placed and terminates in the SVC. IMPRESSION: Resolution of previously seen right upper lobe opacity. Small right-sided layering effusion. Support lines and tubes are appropriately positioned. There is placement of a double-lumen catheter within the SVC. RPTAT: AA .Alhaji Estrella MD, Date Time Electronically viewed and signed by .Alhaji Estrella MD, on 10/12/2016 11:00 .Lou/
[2016-10-12] MEDS: DEXTROSE 5%-0.225% NACL 1,000 ML IV SCH (11:10)
--- NOTE | 2016-10-12 12:23 | CONS ---
Date/Time of Note Date/Time of Note DATE: 10/12/16 TIME: 12:23 Assessment/Plan Assessment/Plan Chief Complaint/Hosp Course ID PROGRESS NOTE CURRENT ABX=> Diflucan s/p Zosyn DC'd 10/11/16 24H INTERVAL SUMMARY * Resting comfortably = sedated, HD today * 10/07 BAL: (-) s/p Zosyn IV for E.Coli sputum cx * Karyna: 10/07/16-1110 Rcvd: 10/07/16-1213 Source: BRONCHIAL Sp Descrip: - Microbiology GRAM STAIN Final POLYMORPH. LEUKOCYTE 2+ EPITHELIAL CELLS 1+ . NO ORGANISM SEEN RESPIRATORY CULTURE Final NO GROWTH AFTER 2 DAYS PHYSICAL EXAMINATION: GENERAL: VSS, NAD, Afebrile HEENT: ETT/OGT-> Secure to Vent NECK: Supple, trachea midline. CHEST: Rise symmetrical, without dyspnea on observation HEART: Pulse RRR ABDOMEN: Soft EXTREMITIES: Warm (+)Edema/anasarca ID ASSESSMENT 71 yo F admit with: 1. Resolving sepsis. 2. Resolving pneumonia. 3. Erica albicans urinary tract infection. 4. Acute on chronic kidney disease. 5. Acute myocardial infarction, status post percutaneous transluminal coronary angioplasty. 6. Paroxysmal atrial fibrillation. (-)MRSA Nares -> INVASIVES: HD Catheter, PICC, ETT, OGT, ABX ALLERGY: None to ABX CURRENT ABX: Diflucan s/p Zosyn DC'd 10/11/16 ID RECOMMENDATIONS 1. Continue current ABX 2. Observe over the weekend on ABX -> Reassess by ID team next week . Problems: Consultation Date/Type/Reason Admit Date/Time Sep 20, 2016 at 19:21 Initial Consult Date 09/23/16 Type of Consultation: ID Referring Provider: ZANDRA ROBISON MD, [facility] Exam/Review of Systems Vital Signs Vitals Vital Signs Date Time Temp Pulse Resp B/P Pulse Ox O2 Delivery O2 Flow Rate FiO2 10/12/16 11:49 69 16 99 30 10/12/16 11:45 112/59 10/12/16 11:00 Mechanical Ventilator 10/12/16 08:00 98.0 10/11/16 12:30 2 Intake and Output 10/11/16 10/11/16 10/12/16 14:59 22:59 06:59 Intake Total 15 ml 569 ml 328 ml Output Total 250 ml 195 ml 155 ml Balance -235 ml 374 ml 173 ml Results Result Diagram: 10/12/16 0400 10/12/16 0400 Results 24 hrs Laboratory Tests Test 10/11/16 13:12 10/11/16 17:34 10/11/16 18:04 10/11/16 23:06 Bedside Glucose 110 57 L 102 147 Test 10/12/16 03:58 10/12/16 04:00 10/12/16 09:06 10/12/16 12:20 Bedside Glucose 210 246 H 292 H White Blood Count 13.2 H Red Blood Count 3.00 L Hemoglobin 9.1 L Hematocrit 29.3 L Mean Corpuscular Volume 97.7 Mean Corpuscular Hemoglobin 30.3 Mean Corpuscular Hemoglobin Concent 31.1 L Red Cell Distribution Width 25.3 H Platelet Count 110 L Mean Platelet Volume 12.4 H Neutrophils % 87.0 H Lymphocytes % 6.5 L Monocytes % 5.2 Eosinophils % 0.3 Basophils % 0.2 Nucleated Red Blood Cells % 0.5 H Neutrophils # 11.5 H Lymphocytes # 0.9 Monocytes # 0.7 Eosinophils # 0.0 Basophils # 0.0 Nucleated Red Blood Cells # 0.1 H Sodium Level 137 Potassium Level 3.6 Chloride Level 99 Carbon Dioxide Level 21 Anion Gap 21 #H Blood Urea Nitrogen 99 H Creatinine 2.89 H Glucose Level 218 # Calcium Level 7.4 L Phosphorus Level 6.7 H Magnesium Level 2.1 Medications Medications Current Medications Acetaminophen (Tylenol Liquid) 650 mg Q4H PRN NGT PAIN AND OR ELEVATED TEMP Last administered on 09/27/16 05:14; Admin Dose 650 MG; Start 09/21/16 at 02:00 Eye Lubricant (Artificial Tears Oph) 2 drop QID BOTH EYES Last administered on 10/12/16 09:11; Admin Dose 2 DROP; Start 09/21/16 at 09:00 Atorvastatin Calcium (Lipitor) 80 mg HS NGT Last administered on 10/11/16 21:49 ; Admin Dose 80 MG; Start 09/22/16 at 21:00 Pantoprazole (Protonix Iv) 40 mg AM IV Last administered on 10/12/16 09:15; Admin Dose 40 MG; Start 09/26/16 at 09:00 Epoetin Raj (Epogen (Esrd)) 10,000 units TuThSa@17 SC Last administered on 10/10 20:44; Admin Dose 10,000 UNITS; Start 09/26/16 at 17:00 IV Flush (NS 10 ml) 10 ml PRN PRN IV IV PROTOCOL; Start 09/26/16 at 17:30 Aspirin (Aspirin) 81 mg DAILY NGT Last administered on 10/12/16 09:09; Admin Dose 81 MG; Start 09/27/16 at 09:00 Clopidogrel Bisulfate (plaVIX) 75 mg DAILY NGT Last administered on 10/12/16 09 :09; Admin Dose 75 MG; Start 09/27/16 at 09:00 Morphine Sulfate (morphine) 2 mg Q4H PRN IV PAIN Last administered on 10/12/16 09:59; Admin Dose 2 MG; Start 09/28/16 at 16:00 Sodium Biphosphate/ Sodium Phosphate 133 ml 133 ml DAILY PRN [place] CONSTIPATION Last administered on 10/09/16 00:50; Admin Dose 133 ML; Start 10/01/16 at 17:00 Norepinephrine/ Dextrose (Levophed/D5W) 500 ml @ 1.87 mls/hr TITRATE IV ; Start 10/04/16 at 07:00 Fluconazole (Diflucan) 100 mg DAILY GTB Last administered on 10/12/16 09:09; Admin Dose 100 MG; Start 10/05/16 at 09:00 Insulin Glargine 50 unit 50 unit DAILY@08 SC Last administered on 10/12/16 09: 15; Admin Dose 50 UNIT; Start 10/06/16 at 08:00 Midazolam HCl 50 ml @ 1 mls/hr TITRATE IV Last administered on 10/07/16 09:47; Admin Dose 3 MLS/HR; Start 10/07/16 at 10:00 Dopamine HCl/ Dextrose 250 ml @ 7.5 mls/hr TITRATE IV Last administered on 10/07 11:00; Admin Dose 37.5 MLS/HR; Start 10/07/16 at 11:30 Lactobacillus Acidoph/Bulgaricus (Floranex) 1 tab TID PO Last administered on 09:11; Admin Dose 1 TAB; Start 10/09/16 at 21:00 Insulin Aspart (Novolog Insulin Pen) NOVOLOG *MODERATE* ALGORI... Q6 SC Last administered on 10/12/16 04:07; Admin Dose 4 UNIT; Start 10/10/16 at 00:00 Miscellaneous Information 1 ea NOTE XX ; Start 10/09/16 at 20:30 Glucose (Glutose) 15 gm Q15M PRN PO DECREASED GLUCOSE; Start 10/09/16 at 20:30 Glucose (Glutose) 22.5 gm Q15M PRN PO DECREASED GLUCOSE; Start 10/09/16 at 20:30 Dextrose (D50w Syringe) 25 ml Q15M PRN IV DECREASED GLUCOSE Last administered on 10/11/16 04:48; Admin Dose 25 ML; Start 10/09/16 at 20:30 Dextrose (D50w Syringe) 50 ml Q15M PRN IV DECREASED GLUCOSE Last administered on 10/11/16 17:37; Admin Dose 50 ML; Start 10/09/16 at 20:30 Glucagon (Glucagen) 1 mg Q15M PRN IM DECREASED GLUCOSE; Start 10/09/16 at 20:30 Glucose 15 gm 15 gm Q15M PRN BUCCAL DECREASED GLUCOSE; Start 10/09/16 at 20:30 Propofol (Diprivan) 100 ml @ 3 mls/hr Q12H IV Last administered on 10/11/16 22: 47; Admin Dose 3 MLS/HR; Start 10/11/16 at 09:30 Heparin Sodium (Porcine) 5000 unit 5,000 unit Q12 SC Last administered on 09:14; Admin Dose 5,000 UNIT; Start 10/11/16 at 21:00 Dextrose/Sodium Chloride (D5-1/4ns) 1,000 ml @ 60 mls/hr [id number] IV ; Start 10/11/16 at 18:30 JUSTIN YAO NP Oct 12, 2016 12:23
--- NOTE | 2016-10-12 13:42 | CONS ---
Date/Time of Note Date/Time of Note DATE: 10/12/16 TIME: 13:35 Assessment/Plan Assessment/Plan Problems: (1) Acute on chronic renal failure Comment: Tolerated dialysis and uf of 3 liters. Probable next dialysis Friday (2) Metabolic encephalopathy Status: Acute (3) ST elevation myocardial infarction (STEMI) Status: Acute Consultation Date/Type/Reason Admit Date/Time Sep 20, 2016 at 19:21 Initial Consult Date 09/23/16 Type of Consultation: Nephrology Referring Provider: ZANDRA ROBISON MD, [facility] 24 HR Interval Summary Free Text/Dictation Patient sedated, on renal tube feedings, she had dialysis today and no drop of pressure. 3Liters out and permacath placed yesterday. She had an e. coli in sputum and jhon in urine and on diflucan. She has ischemic toes. She also had anoxic liver insult. Subjective hx not possible: pt non-verbal Constitutional: chills, diaphoresis, disoriented, febrile, improved, no complaints, other, poor po, requiring IVF, requiring O2 Exam/Review of Systems Vital Signs Vitals Vital Signs Date Time Temp Pulse Resp B/P Pulse Ox O2 Delivery O2 Flow Rate FiO2 10/12/16 11:49 69 16 99 30 10/12/16 11:45 112/59 10/12/16 11:00 Mechanical Ventilator 10/12/16 08:00 98.0 10/11/16 12:30 2 Intake and Output 10/11/16 10/11/16 10/12/16 15:00 23:00 07:00 Intake Total 18 ml 634 ml 260 ml Output Total 250 ml 210 ml 125 ml Balance -232 ml 424 ml 135 ml Exam Constitutional: non-verbal Respiratory: clear to auscultation Cardiovascular: regular rate and rhythm Gastrointestinal: soft Extremities: other (ischemic toes bilaterally) Results Result Diagram: 10/12/16 0400 10/12/16 0400 Results 24 hrs Laboratory Tests Test 10/11/16 17:34 10/11/16 18:04 10/11/16 23:06 10/12/16 03:58 Bedside Glucose 57 L 102 147 210 Test 10/12/16 04:00 10/12/16 09:06 10/12/16 12:20 White Blood Count 13.2 H Red Blood Count 3.00 L Hemoglobin 9.1 L Hematocrit 29.3 L Mean Corpuscular Volume 97.7 Mean Corpuscular Hemoglobin 30.3 Mean Corpuscular Hemoglobin Concent 31.1 L Red Cell Distribution Width 25.3 H Platelet Count 110 L Mean Platelet Volume 12.4 H Neutrophils % 87.0 H Lymphocytes % 6.5 L Monocytes % 5.2 Eosinophils % 0.3 Basophils % 0.2 Nucleated Red Blood Cells % 0.5 H Neutrophils # 11.5 H Lymphocytes # 0.9 Monocytes # 0.7 Eosinophils # 0.0 Basophils # 0.0 Nucleated Red Blood Cells # 0.1 H Sodium Level 137 Potassium Level 3.6 Chloride Level 99 Carbon Dioxide Level 21 Anion Gap 21 #H Blood Urea Nitrogen 99 H Creatinine 2.89 H Glucose Level 218 # Calcium Level 7.4 L Phosphorus Level 6.7 H Magnesium Level 2.1 Bedside Glucose 246 H 292 H Medications Medications Current Medications Acetaminophen (Tylenol Liquid) 650 mg Q4H PRN NGT PAIN AND OR ELEVATED TEMP Last administered on 09/27/16 05:14; Admin Dose 650 MG; Start 09/21/16 at 02:00 Eye Lubricant (Artificial Tears Oph) 2 drop QID BOTH EYES Last administered on 10/12/16 12:23; Admin Dose 2 DROP; Start 09/21/16 at 09:00 Atorvastatin Calcium (Lipitor) 80 mg HS NGT Last administered on 10/11/16 21:49 ; Admin Dose 80 MG; Start 09/22/16 at 21:00 Pantoprazole (Protonix Iv) 40 mg AM IV Last administered on 10/12/16 09:15; Admin Dose 40 MG; Start 09/26/16 at 09:00 Epoetin Raj (Epogen (Esrd)) 10,000 units TuThSa@17 SC Last administered on 10/10 20:44; Admin Dose 10,000 UNITS; Start 09/26/16 at 17:00 IV Flush (NS 10 ml) 10 ml PRN PRN IV IV PROTOCOL; Start 09/26/16 at 17:30 Aspirin (Aspirin) 81 mg DAILY NGT Last administered on 10/12/16 09:09; Admin Dose 81 MG; Start 09/27/16 at 09:00 Clopidogrel Bisulfate (plaVIX) 75 mg DAILY NGT Last administered on 10/12/16 09 :09; Admin Dose 75 MG; Start 09/27/16 at 09:00 Morphine Sulfate (morphine) 2 mg Q4H PRN IV PAIN Last administered on 10/12/16 09:59; Admin Dose 2 MG; Start 09/28/16 at 16:00 Sodium Biphosphate/ Sodium Phosphate 133 ml 133 ml DAILY PRN [place] CONSTIPATION Last administered on 10/09/16 00:50; Admin Dose 133 ML; Start 10/01/16 at 17:00 Norepinephrine/ Dextrose (Levophed/D5W) 500 ml @ 1.87 mls/hr TITRATE IV ; Start 10/04/16 at 07:00 Fluconazole (Diflucan) 100 mg DAILY GTB Last administered on 10/12/16 09:09; Admin Dose 100 MG; Start 10/05/16 at 09:00 Insulin Glargine 50 unit 50 unit DAILY@08 SC Last administered on 10/12/16 09: 15; Admin Dose 50 UNIT; Start 10/06/16 at 08:00 Midazolam HCl 50 ml @ 1 mls/hr TITRATE IV Last administered on 10/07/16 09:47; Admin Dose 3 MLS/HR; Start 10/07/16 at 10:00 Dopamine HCl/ Dextrose 250 ml @ 7.5 mls/hr TITRATE IV Last administered on 10/07 11:00; Admin Dose 37.5 MLS/HR; Start 10/07/16 at 11:30 Lactobacillus Acidoph/Bulgaricus (Floranex) 1 tab TID PO Last administered on 09:11; Admin Dose 1 TAB; Start 10/09/16 at 21:00 Insulin Aspart (Novolog Insulin Pen) NOVOLOG *MODERATE* ALGORI... Q6 SC Last administered on 10/12/16 12:25; Admin Dose 8 UNIT; Start 10/10/16 at 00:00 Miscellaneous Information 1 ea NOTE XX ; Start 10/09/16 at 20:30 Glucose (Glutose) 15 gm Q15M PRN PO DECREASED GLUCOSE; Start 10/09/16 at 20:30 Glucose (Glutose) 22.5 gm Q15M PRN PO DECREASED GLUCOSE; Start 10/09/16 at 20:30 Dextrose (D50w Syringe) 25 ml Q15M PRN IV DECREASED GLUCOSE Last administered on 10/11/16 04:48; Admin Dose 25 ML; Start 10/09/16 at 20:30 Dextrose (D50w Syringe) 50 ml Q15M PRN IV DECREASED GLUCOSE Last administered on 10/11/16 17:37; Admin Dose 50 ML; Start 10/09/16 at 20:30 Glucagon (Glucagen) 1 mg Q15M PRN IM DECREASED GLUCOSE; Start 10/09/16 at 20:30 Glucose 15 gm 15 gm Q15M PRN BUCCAL DECREASED GLUCOSE; Start 10/09/16 at 20:30 Propofol (Diprivan) 100 ml @ 3 mls/hr Q12H IV Last administered on 10/11/16 22: 47; Admin Dose 3 MLS/HR; Start 10/11/16 at 09:30 Heparin Sodium (Porcine) 5000 unit 5,000 unit Q12 SC Last administered on 09:14; Admin Dose 5,000 UNIT; Start 10/11/16 at 21:00 Dextrose/Sodium Chloride (D5-1/4ns) 1,000 ml @ 60 mls/hr [id number] IV ; Start 10/11/16 at 18:30 JOSE SUN MD Oct 12, 2016 13:42
--- NOTE | 2016-10-12 17:00 | CONS ---
Date/Time of Note Date/Time of Note DATE: 10/12/16 TIME: 16:58 Consult Date/Type/Reason Admit Date/Time Sep 20, 2016 at 19:21 Initial Consult Date 09/23/16 Type of Consultation: PULM/CCM Ordering Provider: ZANDRA ROBISON MD, [facility] Subjective s/p HD with UF 3 liters. Sedated on MV. Objective Vital Signs Date Time Temp Pulse Resp B/P Pulse Ox O2 Delivery O2 Flow Rate FiO2 10/12/16 15:10 76 16 100 30 10/12/16 14:00 107/49 Mechanical Ventilator 10/12/16 12:00 97.6 10/11/16 12:30 2 Intake and Output 10/11/16 10/11/16 10/12/16 15:00 23:00 07:00 Intake Total 18 ml 634 ml 298 ml Output Total 250 ml 210 ml 140 ml Balance -232 ml 424 ml 158 ml Exam HEENT: Neck supple; no JVD; no LAD; + ET tube in place CVS: RRR, S1 and S2 CHEST: Clear with decreased breath sounds right ABD: Soft, NT, + BS EXT: No c/c; + edema Results/Medications Result Diagram: 10/12/16 0400 10/12/16 0400 Results 24 hrs Laboratory Tests Test 10/11/16 17:34 10/11/16 18:04 10/11/16 23:06 10/12/16 03:58 Bedside Glucose 57 L 102 147 210 Test 10/12/16 04:00 10/12/16 09:06 10/12/16 12:20 White Blood Count 13.2 H Red Blood Count 3.00 L Hemoglobin 9.1 L Hematocrit 29.3 L Mean Corpuscular Volume 97.7 Mean Corpuscular Hemoglobin 30.3 Mean Corpuscular Hemoglobin Concent 31.1 L Red Cell Distribution Width 25.3 H Platelet Count 110 L Mean Platelet Volume 12.4 H Neutrophils % 87.0 H Lymphocytes % 6.5 L Monocytes % 5.2 Eosinophils % 0.3 Basophils % 0.2 Nucleated Red Blood Cells % 0.5 H Neutrophils # 11.5 H Lymphocytes # 0.9 Monocytes # 0.7 Eosinophils # 0.0 Basophils # 0.0 Nucleated Red Blood Cells # 0.1 H Sodium Level 137 Potassium Level 3.6 Chloride Level 99 Carbon Dioxide Level 21 Anion Gap 21 #H Blood Urea Nitrogen 99 H Creatinine 2.89 H Glucose Level 218 # Calcium Level 7.4 L Phosphorus Level 6.7 H Magnesium Level 2.1 Bedside Glucose 246 H 292 H Medications Current Medications Acetaminophen (Tylenol Liquid) 650 mg Q4H PRN NGT PAIN AND OR ELEVATED TEMP Last administered on 09/27/16 05:14; Admin Dose 650 MG; Start 09/21/16 at 02:00 Eye Lubricant (Artificial Tears Oph) 2 drop QID BOTH EYES Last administered on 10/12/16 12:23; Admin Dose 2 DROP; Start 09/21/16 at 09:00 Atorvastatin Calcium (Lipitor) 80 mg HS NGT Last administered on 10/11/16 21:49 ; Admin Dose 80 MG; Start 09/22/16 at 21:00 Pantoprazole (Protonix Iv) 40 mg AM IV Last administered on 10/12/16 09:15; Admin Dose 40 MG; Start 09/26/16 at 09:00 Epoetin Raj (Epogen (Esrd)) 10,000 units TuThSa@17 SC Last administered on 10/10 20:44; Admin Dose 10,000 UNITS; Start 09/26/16 at 17:00 IV Flush (NS 10 ml) 10 ml PRN PRN IV IV PROTOCOL; Start 09/26/16 at 17:30 Aspirin (Aspirin) 81 mg DAILY NGT Last administered on 10/12/16 09:09; Admin Dose 81 MG; Start 09/27/16 at 09:00 Clopidogrel Bisulfate (plaVIX) 75 mg DAILY NGT Last administered on 10/12/16 09 :09; Admin Dose 75 MG; Start 09/27/16 at 09:00 Morphine Sulfate (morphine) 2 mg Q4H PRN IV PAIN Last administered on 10/12/16 14:21; Admin Dose 2 MG; Start 09/28/16 at 16:00 Sodium Biphosphate/ Sodium Phosphate 133 ml 133 ml DAILY PRN [place] CONSTIPATION Last administered on 10/09/16 00:50; Admin Dose 133 ML; Start 10/01/16 at 17:00 Norepinephrine/ Dextrose (Levophed/D5W) 500 ml @ 1.87 mls/hr TITRATE IV ; Start 10/04/16 at 07:00 Fluconazole (Diflucan) 100 mg DAILY GTB Last administered on 10/12/16 09:09; Admin Dose 100 MG; Start 10/05/16 at 09:00 Insulin Glargine 50 unit 50 unit DAILY@08 SC Last administered on 10/12/16 09: 15; Admin Dose 50 UNIT; Start 10/06/16 at 08:00 Midazolam HCl 50 ml @ 1 mls/hr TITRATE IV Last administered on 10/07/16 09:47; Admin Dose 3 MLS/HR; Start 10/07/16 at 10:00 Dopamine HCl/ Dextrose 250 ml @ 7.5 mls/hr TITRATE IV Last administered on 10/07 11:00; Admin Dose 37.5 MLS/HR; Start 10/07/16 at 11:30 Lactobacillus Acidoph/Bulgaricus (Floranex) 1 tab TID PO Last administered on 09:11; Admin Dose 1 TAB; Start 10/09/16 at 21:00 Insulin Aspart (Novolog Insulin Pen) NOVOLOG *MODERATE* ALGORI... Q6 SC Last administered on 10/12/16 12:25; Admin Dose 8 UNIT; Start 10/10/16 at 00:00 Miscellaneous Information 1 ea NOTE XX ; Start 10/09/16 at 20:30 Glucose (Glutose) 15 gm Q15M PRN PO DECREASED GLUCOSE; Start 10/09/16 at 20:30 Glucose (Glutose) 22.5 gm Q15M PRN PO DECREASED GLUCOSE; Start 10/09/16 at 20:30 Dextrose (D50w Syringe) 25 ml Q15M PRN IV DECREASED GLUCOSE Last administered on 10/11/16 04:48; Admin Dose 25 ML; Start 10/09/16 at 20:30 Dextrose (D50w Syringe) 50 ml Q15M PRN IV DECREASED GLUCOSE Last administered on 10/11/16 17:37; Admin Dose 50 ML; Start 10/09/16 at 20:30 Glucagon (Glucagen) 1 mg Q15M PRN IM DECREASED GLUCOSE; Start 10/09/16 at 20:30 Glucose 15 gm 15 gm Q15M PRN BUCCAL DECREASED GLUCOSE; Start 10/09/16 at 20:30 Propofol (Diprivan) 100 ml @ 3 mls/hr Q12H IV Last administered on 10/11/16 22: 47; Admin Dose 3 MLS/HR; Start 10/11/16 at 09:30 Heparin Sodium (Porcine) 5000 unit 5,000 unit Q12 SC Last administered on 09:14; Admin Dose 5,000 UNIT; Start 10/11/16 at 21:00 Dextrose/Sodium Chloride (D5-1/4ns) 1,000 ml @ 60 mls/hr [id number] IV ; Start 10/11/16 at 18:30 Assessment/Plan Additional Assessment/Plan IMP: 1. Status post cardiac arrest. ST elevation AL--s/p stent placement to RCA 2. Hypercapnic respiratory failure 3. Acute renal failure 4. Status post shock liver 5. Anemia RECS: 1. Continue mechanical ventilation with efforts to weaning with SIMV+PS 2. HD/UF 3. Abx per ID 4. Daily sedation vacation 5. Am labs. 35 min cc time LOGAN BURKETT MD Oct 12, 2016 17:00
[2016-10-12] MEDS: EPOETIN 10000 UNITS/1 ML INJ (ESRD) SC SCH (17:56)
[2016-10-12] MEDS: ATORVASTATIN 80 MG TAB NGT SCH (20:30)
[2016-10-13] VITALS (52 sets, daily range): BP systolic 80–132; BP diastolic 42–100; PULSE 75–105; RESP 14–22
[2016-10-13] MEDS: INSULIN ASPART [NOVOLOG] 3 ML PEN SC SCH ×4 (00:47→17:36)
[2016-10-13] MEDS: LEVALBUTEROL (HFA) 15 GM INHALER INH SCH ×4 (01:03→19:36)
[2016-10-13] MEDS: ACETYLCYSTEINE 20% 4 ML VIAL NEB SCH ×4 (01:03→19:42)
[2016-10-13] MEDS: IPRATROPIUM (HFA) 12.9 GM INHALER INH SCH ×4 (01:04→19:36)
[2016-10-13] MEDS: DEXTROSE 5%-0.225% NACL 1,000 ML IV SCH ×2 (03:50→20:30)
[2016-10-13 04:43] LABS: ADD SCAN DIFF NO
[2016-10-13 04:53] LABS: ABNORMAL IP MESSAGE 1; BASOPHILS % 0.1 % (0.0-2.0); EOSINOPHILS % 0.3 % (0.0-7.0); HEMATOCRIT 29.1 % (37.0-47.0); HEMOGLOBIN 8.7 g/dl (12.0-16.0); LYMPHOCYTES # 0.7 10^3/ul (0.8-2.9); LYMPHOCYTES % 5.4 % (15.0-51.0); MEAN CORPUSCULAR HEMOGLOBIN 29.2 pg (29.0-33.0); MEAN CORPUSCULAR HGB CONC 29.9 g/dl (32.0-37.0); MEAN CORPUSCULAR VOLUME 97.7 fl (82.0-101.0); MEAN PLATELET VOLUME 12.2 fl (7.4-10.4); MONOCYTE # 0.6 10^3/ul (0.3-0.9); MONOCYTES % 4.9 % (0.0-11.0); NEUTROPHIL # 11.2 10^3/ul (1.6-7.5); NEUTROPHILS % 88.7 % (39.0-77.0); NUCLEATED RED BLOOD CELLS # 0.1 10^3/ul (0.0-0.0); NUCLEATED RED BLOOD CELLS% 0.5 /100WBC (0.0-0.0); PLATELET COUNT 123 10^3/UL (140-415); RED BLOOD COUNT 2.98 10^6/ul (4.20-5.40); WHITE BLOOD COUNT 12.6 10^3/ul (4.8-10.8)
[2016-10-13 05:02] LABS: POTASSIUM 3.4 mmol/L (3.5-5.1)
[2016-10-13 05:06] LABS: CALCIUM 7.8 mg/dl (8.4-10.2)
[2016-10-13 05:11] LABS: AADO2 Arterial 109.4 mmHg (7.0-24.0); Allen Test ACCEPTAB; Arterial Base Excess -0.1 mmol/L (-3.0-3); Arterial COHb 0.2 % (0.0-3.0); Arterial Fraction of Oxyhgb 87.2 % (93.0-99.0); Arterial HCO3 24.5 mmol/L (22.0-26.0); Arterial MetHb 0.4 % (0.0-1.5); Arterial Total Hemglobin 10.5 g/dl (12.0-18.0); MODE VENT - AC
[2016-10-13 05:17] LABS: CREATININE 2.62 mg/dl (0.44-1.00)
[2016-10-13] MEDS: ASPIRIN 81 MG TAB NGT SCH (08:45)
[2016-10-13] MEDS: PANTOPRAZOLE 40 MG INJ IV SCH (08:45)
[2016-10-13] MEDS: CLOPIDOGREL 75 MG TAB NGT SCH (08:45)
[2016-10-13] MEDS: FLUCONAZOLE 100 MG TAB GTB SCH (08:45)
[2016-10-13] MEDS: LACTOBACILLUS CHEW TAB PO SCH ×3 (08:47→21:15)
[2016-10-13] MEDS: ARTIFICIAL TEARS 15 ML OPH BOTH EYES SCH ×4 (08:48→21:15)
[2016-10-13] MEDS: INSULIN GLARGINE [LANtus] 3 ML PEN SC SCH (08:51)
[2016-10-13] MEDS: HEPARIN 5,000 UNIT/0.5 ML VIAL SC SCH ×2 (08:52→21:19)
[2016-10-13] MEDS: PROPOFOL 100 ML IV SCH ×2 (09:30→19:03)
--- NOTE | 2016-10-13 12:19 | CONS ---
Date/Time of Note Date/Time of Note DATE: 10/13/16 TIME: 12:14 Assessment/Plan Assessment/Plan Problems: (1) Acute on chronic renal failure Comment: dialysis for tomorrow (2) Metabolic encephalopathy Status: Acute Comment: once extubated can assess mentation better tho looks attentive (3) ST elevation myocardial infarction (STEMI) Status: Acute Additional Assessment/Plan Dialysis tomorrow Consultation Date/Type/Reason Admit Date/Time Sep 20, 2016 at 19:21 Initial Consult Date 09/23/16 Type of Consultation: Nephrology Reason for Consultation Management ckd 5 with acute renal failure Referring Provider: ZANDRA ROBISON MD, [facility] 24 HR Interval Summary Free Text/Dictation Tolerated dialysis yesterday with 3 liters removed and now with decreased urine output. Subjective hx not possible: pt non-verbal Exam/Review of Systems Vital Signs Vitals Vital Signs Date Time Temp Pulse Resp B/P Pulse Ox O2 Delivery O2 Flow Rate FiO2 10/13/16 10:00 77 16 106/57 100 Mechanical Ventilator 10/13/16 08:10 30 10/13/16 08:00 97.0 10/11/16 12:30 2 Intake and Output 10/12/16 10/12/16 10/13/16 15:00 23:00 07:00 Intake Total 864 ml 334 ml 376.6 ml Output Total 3555 ml 65 ml 35 ml Balance -2691 ml 269 ml 341.6 ml Exam Respiratory: clear to auscultation (on vent) Cardiovascular: edema (2+pitting), regular rate and rhythm Neurological: TELEPHONE MESSENGER II-XII intact Results Result Diagram: 10/13/16 0400 10/13/16 0400 Results 24 hrs Laboratory Tests Test 10/12/16 12:20 10/12/16 17:34 10/13/16 00:45 10/13/16 04:00 Bedside Glucose 292 H 250 H 274 H White Blood Count 12.6 H Red Blood Count 2.98 L Hemoglobin 8.7 L Hematocrit 29.1 L Mean Corpuscular Volume 97.7 Mean Corpuscular Hemoglobin 29.2 Mean Corpuscular Hemoglobin Concent 29.9 L Red Cell Distribution Width 26.0 H Platelet Count 123 L Mean Platelet Volume 12.2 H Neutrophils % 88.7 H Lymphocytes % 5.4 L Monocytes % 4.9 Eosinophils % 0.3 Basophils % 0.1 Nucleated Red Blood Cells % 0.5 H Neutrophils # 11.2 H Lymphocytes # 0.7 L Monocytes # 0.6 Eosinophils # 0.0 Basophils # 0.0 Nucleated Red Blood Cells # 0.1 H Sodium Level 143 Potassium Level 3.4 L Chloride Level 104 Carbon Dioxide Level 24 Anion Gap 18 H Blood Urea Nitrogen 84 H Creatinine 2.62 H Glucose Level 239 H Calcium Level 7.8 L Test 10/13/16 05:00 10/13/16 05:51 10/13/16 08:50 10/13/16 11:48 Blood Gas Specimen Source Blood arterial Arterial Blood Date Drawn 10/13/2016 5:06:29 AM Arterial Blood pH (Temp corrected) 7.408 Arterial Blood pCO2 (Temp correct) 39.7 Arterial Blood pO2 (Temp corrected) 57.9 L Arterial Blood HCO3 24.5 Arterial Blood Base Excess -0.1 Arterial Blood Oxygen Saturation 87.7 L Raz Test ACCEPTAB Arterial Blood Gas Puncture Site Left Radial Arterial Blood Carboxyhemoglobin 0.2 Arterial Blood Methemoglobin 0.4 Blood Gas A-a O2 Differential 109.4 H Oxyhemoglobin Percent 87.2 L Total Hemoglobin 10.5 L Blood Gas Temperature 37.0 Blood Gas Respiration Rate 16.0 Blood Gas Actual Respiration Rate 18 Blood Gas Modality VENT - AC FiO2 30.0 Blood Gas Tidal Volume 500.0 Blood Gas Low PEEP Setting 5.0 Blood Gas Notified Whom BR Blood Gas Notified Time 10/13/2016 5:11:11 AM Bedside Glucose 223 H 233 H 231 H Medications Medications Current Medications Acetaminophen (Tylenol Liquid) 650 mg Q4H PRN NGT PAIN AND OR ELEVATED TEMP Last administered on 09/27/16 05:14; Admin Dose 650 MG; Start 09/21/16 at 02:00 Eye Lubricant (Artificial Tears Oph) 2 drop QID BOTH EYES Last administered on 10/13/16 11:51; Admin Dose 2 DROP; Start 09/21/16 at 09:00 Atorvastatin Calcium (Lipitor) 80 mg HS NGT Last administered on 10/12/16 20:30 ; Admin Dose 80 MG; Start 09/22/16 at 21:00 Pantoprazole (Protonix Iv) 40 mg AM IV Last administered on 10/13/16 08:45; Admin Dose 40 MG; Start 09/26/16 at 09:00 Epoetin Raj (Epogen (Esrd)) 10,000 units TuThSa@17 SC Last administered on 10/12 17:56; Admin Dose 10,000 UNITS; Start 09/26/16 at 17:00 IV Flush (NS 10 ml) 10 ml PRN PRN IV IV PROTOCOL; Start 09/26/16 at 17:30 Aspirin (Aspirin) 81 mg DAILY NGT Last administered on 10/13/16 08:45; Admin Dose 81 MG; Start 09/27/16 at 09:00 Clopidogrel Bisulfate (plaVIX) 75 mg DAILY NGT Last administered on 10/13/16 08 :45; Admin Dose 75 MG; Start 09/27/16 at 09:00 Morphine Sulfate (morphine) 2 mg Q4H PRN IV PAIN Last administered on 10/12/16 23:30; Admin Dose 2 MG; Start 09/28/16 at 16:00 Sodium Biphosphate/ Sodium Phosphate 133 ml 133 ml DAILY PRN [place] CONSTIPATION Last administered on 10/09/16 00:50; Admin Dose 133 ML; Start 10/01/16 at 17:00 Norepinephrine/ Dextrose (Levophed/D5W) 500 ml @ 1.87 mls/hr TITRATE IV ; Start 10/04/16 at 07:00 Fluconazole (Diflucan) 100 mg DAILY GTB Last administered on 10/13/16 08:45; Admin Dose 100 MG; Start 10/05/16 at 09:00 Insulin Glargine 50 unit 50 unit DAILY@08 SC Last administered on 10/13/16 08: 51; Admin Dose 50 UNIT; Start 10/06/16 at 08:00 Midazolam HCl 50 ml @ 1 mls/hr TITRATE IV Last administered on 10/07/16 09:47; Admin Dose 3 MLS/HR; Start 10/07/16 at 10:00 Dopamine HCl/ Dextrose 250 ml @ 7.5 mls/hr TITRATE IV Last administered on 10/07 11:00; Admin Dose 37.5 MLS/HR; Start 10/07/16 at 11:30 Lactobacillus Acidoph/Bulgaricus (Floranex) 1 tab TID PO Last administered on 08:47; Admin Dose 1 TAB; Start 10/09/16 at 21:00 Insulin Aspart (Novolog Insulin Pen) NOVOLOG *MODERATE* ALGORI... Q6 SC Last administered on 10/13/16 11:51; Admin Dose 6 UNIT; Start 10/10/16 at 00:00 Miscellaneous Information 1 ea NOTE XX ; Start 10/09/16 at 20:30 Glucose (Glutose) 15 gm Q15M PRN PO DECREASED GLUCOSE; Start 10/09/16 at 20:30 Glucose (Glutose) 22.5 gm Q15M PRN PO DECREASED GLUCOSE; Start 10/09/16 at 20:30 Dextrose (D50w Syringe) 25 ml Q15M PRN IV DECREASED GLUCOSE Last administered on 10/11/16 04:48; Admin Dose 25 ML; Start 10/09/16 at 20:30 Dextrose (D50w Syringe) 50 ml Q15M PRN IV DECREASED GLUCOSE Last administered on 10/11/16 17:37; Admin Dose 50 ML; Start 10/09/16 at 20:30 Glucagon (Glucagen) 1 mg Q15M PRN IM DECREASED GLUCOSE; Start 10/09/16 at 20:30 Glucose 15 gm 15 gm Q15M PRN BUCCAL DECREASED GLUCOSE; Start 10/09/16 at 20:30 Propofol (Diprivan) 100 ml @ 3 mls/hr Q12H IV Last administered on 10/12/16 23: 29; Admin Dose 3 MLS/HR; Start 10/11/16 at 09:30 Heparin Sodium (Porcine) 5000 unit 5,000 unit Q12 SC Last administered on 08:52; Admin Dose 5,000 UNIT; Start 10/11/16 at 21:00 Dextrose/Sodium Chloride (D5-1/4ns) 1,000 ml @ 60 mls/hr [id number] IV ; Start 10/11/16 at 18:30 JOSE SUN MD Oct 13, 2016 12:19
--- NOTE | 2016-10-13 13:51 | CONS ---
Date/Time of Note Date/Time of Note DATE: 10/13/16 TIME: 13:48 Consult Date/Type/Reason Admit Date/Time Sep 20, 2016 at 19:21 Initial Consult Date 09/23/16 Type of Consultation: Pulm/CCM Ordering Provider: ZANDRA ROBISON MD, [facility] Subjective No events on MV. s/p HD yesterday Objective Vital Signs Date Time Temp Pulse Resp B/P Pulse Ox O2 Delivery O2 Flow Rate FiO2 10/13/16 12:00 78 10/13/16 10:00 16 106/57 100 Mechanical Ventilator 10/13/16 08:10 30 10/13/16 08:00 97.0 10/11/16 12:30 2 Intake and Output 10/12/16 10/12/16 10/13/16 15:00 23:00 07:00 Intake Total 864 ml 334 ml 376.6 ml Output Total 3555 ml 65 ml 35 ml Balance -2691 ml 269 ml 341.6 ml Exam HEENT: Neck supple; no JVD; no LAD; + ET tube in place CVS: RRR, S1 and S2 CHEST: Clear with decreased breath sounds right ABD: Soft, NT, + BS EXT: No c/c; + edema Results/Medications Result Diagram: 10/13/16 0400 10/13/16 0400 Results 24 hrs Laboratory Tests Test 10/12/16 17:34 10/13/16 00:45 10/13/16 04:00 10/13/16 05:00 Bedside Glucose 250 H 274 H White Blood Count 12.6 H Red Blood Count 2.98 L Hemoglobin 8.7 L Hematocrit 29.1 L Mean Corpuscular Volume 97.7 Mean Corpuscular Hemoglobin 29.2 Mean Corpuscular Hemoglobin Concent 29.9 L Red Cell Distribution Width 26.0 H Platelet Count 123 L Mean Platelet Volume 12.2 H Neutrophils % 88.7 H Lymphocytes % 5.4 L Monocytes % 4.9 Eosinophils % 0.3 Basophils % 0.1 Nucleated Red Blood Cells % 0.5 H Neutrophils # 11.2 H Lymphocytes # 0.7 L Monocytes # 0.6 Eosinophils # 0.0 Basophils # 0.0 Nucleated Red Blood Cells # 0.1 H Sodium Level 143 Potassium Level 3.4 L Chloride Level 104 Carbon Dioxide Level 24 Anion Gap 18 H Blood Urea Nitrogen 84 H Creatinine 2.62 H Glucose Level 239 H Calcium Level 7.8 L Blood Gas Specimen Source Blood arterial Arterial Blood Date Drawn 10/13/2016 5:06:29 AM Arterial Blood pH (Temp corrected) 7.408 Arterial Blood pCO2 (Temp correct) 39.7 Arterial Blood pO2 (Temp corrected) 57.9 L Arterial Blood HCO3 24.5 Arterial Blood Base Excess -0.1 Arterial Blood Oxygen Saturation 87.7 L Raz Test ACCEPTAB Arterial Blood Gas Puncture Site Left Radial Arterial Blood Carboxyhemoglobin 0.2 Arterial Blood Methemoglobin 0.4 Blood Gas A-a O2 Differential 109.4 H Oxyhemoglobin Percent 87.2 L Total Hemoglobin 10.5 L Blood Gas Temperature 37.0 Blood Gas Respiration Rate 16.0 Blood Gas Actual Respiration Rate 18 Blood Gas Modality VENT - AC FiO2 30.0 Blood Gas Tidal Volume 500.0 Blood Gas Low PEEP Setting 5.0 Blood Gas Notified Whom BR Blood Gas Notified Time 10/13/2016 5:11:11 AM Test 10/13/16 05:51 10/13/16 08:50 10/13/16 11:48 Bedside Glucose 223 H 233 H 231 H Medications Current Medications Acetaminophen (Tylenol Liquid) 650 mg Q4H PRN NGT PAIN AND OR ELEVATED TEMP Last administered on 09/27/16 05:14; Admin Dose 650 MG; Start 09/21/16 at 02:00 Eye Lubricant (Artificial Tears Oph) 2 drop QID BOTH EYES Last administered on 10/13/16 11:51; Admin Dose 2 DROP; Start 09/21/16 at 09:00 Atorvastatin Calcium (Lipitor) 80 mg HS NGT Last administered on 10/12/16 20:30 ; Admin Dose 80 MG; Start 09/22/16 at 21:00 Pantoprazole (Protonix Iv) 40 mg AM IV Last administered on 10/13/16 08:45; Admin Dose 40 MG; Start 09/26/16 at 09:00 Epoetin Raj (Epogen (Esrd)) 10,000 units TuThSa@17 SC Last administered on 10/12 17:56; Admin Dose 10,000 UNITS; Start 09/26/16 at 17:00 IV Flush (NS 10 ml) 10 ml PRN PRN IV IV PROTOCOL; Start 09/26/16 at 17:30 Aspirin (Aspirin) 81 mg DAILY NGT Last administered on 10/13/16 08:45; Admin Dose 81 MG; Start 09/27/16 at 09:00 Clopidogrel Bisulfate (plaVIX) 75 mg DAILY NGT Last administered on 10/13/16 08 :45; Admin Dose 75 MG; Start 09/27/16 at 09:00 Morphine Sulfate (morphine) 2 mg Q4H PRN IV PAIN Last administered on 10/12/16 23:30; Admin Dose 2 MG; Start 09/28/16 at 16:00 Sodium Biphosphate/ Sodium Phosphate 133 ml 133 ml DAILY PRN [place] CONSTIPATION Last administered on 10/09/16 00:50; Admin Dose 133 ML; Start 10/01/16 at 17:00 Norepinephrine/ Dextrose (Levophed/D5W) 500 ml @ 1.87 mls/hr TITRATE IV ; Start 10/04/16 at 07:00 Fluconazole (Diflucan) 100 mg DAILY GTB Last administered on 10/13/16 08:45; Admin Dose 100 MG; Start 10/05/16 at 09:00 Insulin Glargine 50 unit 50 unit DAILY@08 SC Last administered on 10/13/16 08: 51; Admin Dose 50 UNIT; Start 10/06/16 at 08:00 Midazolam HCl 50 ml @ 1 mls/hr TITRATE IV Last administered on 10/07/16 09:47; Admin Dose 3 MLS/HR; Start 10/07/16 at 10:00 Dopamine HCl/ Dextrose 250 ml @ 7.5 mls/hr TITRATE IV Last administered on 10/07 11:00; Admin Dose 37.5 MLS/HR; Start 10/07/16 at 11:30 Lactobacillus Acidoph/Bulgaricus (Floranex) 1 tab TID PO Last administered on 08:47; Admin Dose 1 TAB; Start 10/09/16 at 21:00 Insulin Aspart (Novolog Insulin Pen) NOVOLOG *MODERATE* ALGORI... Q6 SC Last administered on 10/13/16 11:51; Admin Dose 6 UNIT; Start 10/10/16 at 00:00 Miscellaneous Information 1 ea NOTE XX ; Start 10/09/16 at 20:30 Glucose (Glutose) 15 gm Q15M PRN PO DECREASED GLUCOSE; Start 10/09/16 at 20:30 Glucose (Glutose) 22.5 gm Q15M PRN PO DECREASED GLUCOSE; Start 10/09/16 at 20:30 Dextrose (D50w Syringe) 25 ml Q15M PRN IV DECREASED GLUCOSE Last administered on 10/11/16 04:48; Admin Dose 25 ML; Start 10/09/16 at 20:30 Dextrose (D50w Syringe) 50 ml Q15M PRN IV DECREASED GLUCOSE Last administered on 10/11/16 17:37; Admin Dose 50 ML; Start 10/09/16 at 20:30 Glucagon (Glucagen) 1 mg Q15M PRN IM DECREASED GLUCOSE; Start 10/09/16 at 20:30 Glucose 15 gm 15 gm Q15M PRN BUCCAL DECREASED GLUCOSE; Start 10/09/16 at 20:30 Propofol (Diprivan) 100 ml @ 3 mls/hr Q12H IV Last administered on 10/12/16 23: 29; Admin Dose 3 MLS/HR; Start 10/11/16 at 09:30 Heparin Sodium (Porcine) 5000 unit 5,000 unit Q12 SC Last administered on 08:52; Admin Dose 5,000 UNIT; Start 10/11/16 at 21:00 Dextrose/Sodium Chloride (D5-1/4ns) 1,000 ml @ 60 mls/hr [id number] IV ; Start 10/11/16 at 18:30 Assessment/Plan Additional Assessment/Plan IMP: 1. Status post cardiac arrest. ST elevation DC--s/p stent placement to RCA 2. Hypercapnic respiratory failure 3. Acute renal failure 4. Status post shock liver 5. Anemia RECS: 1. Continue mechanical ventilation with efforts to weaning with SIMV+PS 2. HD/UF 3. Abx per ID 4. Daily sedation vacation 5. Am labs/CXR/ABG 35 min cc time LOGAN BURKETT MD Oct 13, 2016 13:50
[2016-10-13] MEDS: morphine 2 MG INJ IV PRN ×2 (14:32→21:30)
[2016-10-13] MEDS: ATORVASTATIN 80 MG TAB NGT SCH (21:15)
[2016-10-14] VITALS (49 sets, daily range): BP systolic 70–108; BP diastolic 42–75; PULSE 81–108; RESP 12–24
[2016-10-14] MEDS: DEXTROSE 50% 50 ML SYRINGE IV PRN (00:31)
[2016-10-14] MEDS: IPRATROPIUM (HFA) 12.9 GM INHALER INH SCH ×4 (01:13→19:22)
[2016-10-14] MEDS: ACETYLCYSTEINE 20% 4 ML VIAL NEB SCH ×4 (01:13→19:22)
[2016-10-14] MEDS: LEVALBUTEROL (HFA) 15 GM INHALER INH SCH ×4 (01:13→19:22)
[2016-10-14] MEDS: DEXTROSE 5%-0.225% NACL 1,000 ML IV SCH (02:24)
[2016-10-14] MEDS: INSULIN ASPART [NOVOLOG] 3 ML PEN SC SCH ×4 (06:00→18:34)
[2016-10-14 06:42] LABS: ADD SCAN DIFF NO
[2016-10-14 06:44] LABS: ABNORMAL IP MESSAGE 1; BASOPHILS % 0.2 % (0.0-2.0); EOSINOPHILS # 0.1 10^3/ul (0.0-0.5); EOSINOPHILS % 0.5 % (0.0-7.0); HEMATOCRIT 28.6 % (37.0-47.0); HEMOGLOBIN 8.4 g/dl (12.0-16.0); LYMPHOCYTES # 0.8 10^3/ul (0.8-2.9); LYMPHOCYTES % 6.4 % (15.0-51.0); MEAN CORPUSCULAR HGB CONC 29.4 g/dl (32.0-37.0); MEAN CORPUSCULAR VOLUME 98.6 fl (82.0-101.0); MONOCYTE # 0.9 10^3/ul (0.3-0.9); MONOCYTES % 7.1 % (0.0-11.0); NEUTROPHIL # 11.1 10^3/ul (1.6-7.5); NUCLEATED RED BLOOD CELLS # 0.3 10^3/ul (0.0-0.0); PLATELET COUNT 146 10^3/UL (140-415)
[2016-10-14 07:02] LABS: POTASSIUM 4.4 mmol/L (3.5-5.1)
[2016-10-14 07:06] LABS: CALCIUM 7.5 mg/dl (8.4-10.2)
[2016-10-14 07:14] LABS: CREATININE 2.95 mg/dl (0.44-1.00)
[2016-10-14] MEDS: morphine 2 MG INJ IV PRN (08:39)
[2016-10-14] MEDS: PANTOPRAZOLE 40 MG INJ IV SCH (08:40)
[2016-10-14] MEDS: LACTOBACILLUS CHEW TAB PO SCH ×3 (08:41→20:52)
[2016-10-14] MEDS: FLUCONAZOLE 100 MG TAB GTB SCH (08:41)
[2016-10-14] MEDS: ASPIRIN 81 MG TAB NGT SCH (08:41)
[2016-10-14] MEDS: CLOPIDOGREL 75 MG TAB NGT SCH (08:41)
[2016-10-14] MEDS: HEPARIN 5,000 UNIT/0.5 ML VIAL SC SCH ×2 (08:42→20:53)
[2016-10-14] MEDS: ARTIFICIAL TEARS 15 ML OPH BOTH EYES SCH ×4 (08:43→21:04)
[2016-10-14 08:58] LABS: AADO2 Arterial 103.7 mmHg (7.0-24.0); Allen Test ACCEPTAB; Arterial Base Excess -0.7 mmol/L (-3.0-3); Arterial COHb 0.6 % (0.0-3.0); Arterial Fraction of Oxyhgb 97.8 % (93.0-99.0); Arterial HCO3 22.2 mmol/L (22.0-26.0); Arterial MetHb 0.5 % (0.0-1.5); Arterial Total Hemglobin 9.2 g/dl (12.0-18.0); Blood Gas PS 16; MODE VENT - SIMV
--- NOTE | 2016-10-14 09:07 | CONS ---
Date/Time of Note Date/Time of Note DATE: 10/14/16 TIME: 09:01 Assessment/Plan Assessment/Plan Chief Complaint/Hosp Course 1. Acute Renal Failure due to ATN , oliguric . Her BUN has been high . She is scheduled for dialysis today . I would recommend we continue dialysis every other day. 2. ALOC , she is improved and responsive 3. liver enzyme elevation due to anoxia , enzymes are decreasing . 4. hypotension , she is now normotensive off pressors. 5. hypocalcemia/hypoalbuminemia , calcium is higher 6. anemia , she has not had any recent GI bleeding , blood transfused with last dialysis . 7. peripheral vascular disease . 8. respiratory failure , ventilator dependent . Problems: Consultation Date/Type/Reason Admit Date/Time Sep 20, 2016 at 19:21 Initial Consult Date 09/23/16 Type of Consultation: Pulm/CCM Referring Provider: ZANDRA ROBISON MD, [facility] 24 HR Interval Summary Free Text/Dictation She is in the ICU , intubated on a ventilator . She is awake and responsive . Subjective hx not possible: pt non-verbal Exam/Review of Systems Vital Signs Vitals Vital Signs Date Time Temp Pulse Resp B/P Pulse Ox O2 Delivery O2 Flow Rate FiO2 10/14/16 06:00 97 13 85/50 97 Mechanical Ventilator 10/14/16 05:52 30 10/13/16 20:00 98.3 10/11/16 12:30 2 Intake and Output 10/13/16 10/13/16 10/14/16 15:00 23:00 07:00 Intake Total 299 ml 194 ml 426.4 ml Output Total 15 ml 5 ml 15 ml Balance 284 ml 189 ml 411.4 ml Exam Constitutional: alert Respiratory: clear to auscultation, diminished breath sounds Cardiovascular: regular rate and rhythm Gastrointestinal: non-tender, soft Extremities: edema Results Result Diagram: 10/14/16 0520 10/14/16 0520 Results 24 hrs Laboratory Tests Test 10/13/16 11:48 10/13/16 17:34 10/14/16 00:26 10/14/16 00:49 Bedside Glucose 231 H 120 61 L 96 Test 10/14/16 02:22 10/14/16 02:49 10/14/16 05:00 10/14/16 05:10 Bedside Glucose 73 78 Blood Gas Specimen Source Blood arterial Arterial Blood Date Drawn 10/14/2016 5:02:50 AM Arterial Blood pH (Temp corrected) 7.483 H Arterial Blood pCO2 (Temp correct) 30.3 L Arterial Blood pO2 (Temp corrected) 146.7 H Arterial Blood HCO3 22.2 Arterial Blood Base Excess -0.7 Arterial Blood Oxygen Saturation 98.9 H Raz Test ACCEPTAB Arterial Blood Gas Puncture Site Left Radial Arterial Blood Carboxyhemoglobin 0.6 Arterial Blood Methemoglobin 0.5 Blood Gas A-a O2 Differential 103.7 H Oxyhemoglobin Percent 97.8 Total Hemoglobin 9.2 L Blood Gas Temperature 37.0 Blood Gas Respiration Rate 12.0 Blood Gas Actual Respiration Rate 21 Blood Gas Modality VENT - SIMV FiO2 40.0 Blood Gas Tidal Volume 450.0 Blood Gas Low PEEP Setting 5.0 Blood Gas Pressure Support 16 Blood Gas Notified Whom BR Blood Gas Notified Time 10/14/2016 5:10:37 AM Lactic Acid Level 1.6 Test 10/14/16 05:14 10/14/16 05:20 10/14/16 07:48 Bedside Glucose 101 143 White Blood Count 13.0 H Red Blood Count 2.90 L Hemoglobin 8.4 L Hematocrit 28.6 L Mean Corpuscular Volume 98.6 Mean Corpuscular Hemoglobin 29.0 Mean Corpuscular Hemoglobin Concent 29.4 L Red Cell Distribution Width 26.0 H Platelet Count 146 Mean Platelet Volume 12.0 H Neutrophils % 85.0 H Lymphocytes % 6.4 L Monocytes % 7.1 Eosinophils % 0.5 Basophils % 0.2 Nucleated Red Blood Cells % 2.0 H Neutrophils # 11.1 H Lymphocytes # 0.8 Monocytes # 0.9 Eosinophils # 0.1 Basophils # 0.0 Nucleated Red Blood Cells # 0.3 H Sodium Level 141 Potassium Level 4.4 Chloride Level 104 Carbon Dioxide Level 24 Anion Gap 17 H Blood Urea Nitrogen 106 H Creatinine 2.95 H Glucose Level 90 # Calcium Level 7.5 L Medications Medications Current Medications Acetaminophen (Tylenol Liquid) 650 mg Q4H PRN NGT PAIN AND OR ELEVATED TEMP Last administered on 09/27/16 05:14; Admin Dose 650 MG; Start 09/21/16 at 02:00 Eye Lubricant (Artificial Tears Oph) 2 drop QID BOTH EYES Last administered on 10/14/16 08:43; Admin Dose 2 DROP; Start 09/21/16 at 09:00 Atorvastatin Calcium (Lipitor) 80 mg HS NGT Last administered on 10/13/16 21:15 ; Admin Dose 80 MG; Start 09/22/16 at 21:00 Pantoprazole (Protonix Iv) 40 mg AM IV Last administered on 10/14/16 08:40; Admin Dose 40 MG; Start 09/26/16 at 09:00 Epoetin Raj (Epogen (Esrd)) 10,000 units TuThSa@17 SC Last administered on 10/12 17:56; Admin Dose 10,000 UNITS; Start 09/26/16 at 17:00 IV Flush (NS 10 ml) 10 ml PRN PRN IV IV PROTOCOL; Start 09/26/16 at 17:30 Aspirin (Aspirin) 81 mg DAILY NGT Last administered on 10/14/16 08:41; Admin Dose 81 MG; Start 09/27/16 at 09:00 Clopidogrel Bisulfate (plaVIX) 75 mg DAILY NGT Last administered on 10/14/16 08:41; Admin Dose 75 MG; Start 09/27/16 at 09:00 Morphine Sulfate (morphine) 2 mg Q4H PRN IV PAIN Last administered on 08:39; Admin Dose 2 MG; Start 09/28/16 at 16:00 Sodium Biphosphate/ Sodium Phosphate 133 ml 133 ml DAILY PRN [place] CONSTIPATION Last administered on 10/09/16 00:50; Admin Dose 133 ML; Start 10/01/16 at 17:00 Norepinephrine/ Dextrose (Levophed/D5W) 500 ml @ 1.87 mls/hr TITRATE IV ; Start 10/04/16 at 07:00 Fluconazole 100 mg 100 mg DAILY GTB Last administered on 10/14/16 08:41; Admin Dose 100 MG; Start 10/05/16 at 09:00 Midazolam HCl 50 ml @ 1 mls/hr TITRATE IV Last administered on 10/07/16 09:47; Admin Dose 3 MLS/HR; Start 10/07/16 at 10:00 Dopamine HCl/ Dextrose 250 ml @ 7.5 mls/hr TITRATE IV Last administered on 10/07 11:00; Admin Dose 37.5 MLS/HR; Start 10/07/16 at 11:30 Lactobacillus Acidoph/Bulgaricus (Floranex) 1 tab TID PO Last administered on 08:41; Admin Dose 1 TAB; Start 10/09/16 at 21:00 Insulin Aspart (Novolog Insulin Pen) NOVOLOG *MODERATE* ALGORI... Q6 SC Last administered on 10/13/16 11:51; Admin Dose 6 UNIT; Start 10/10/16 at 00:00 Miscellaneous Information 1 ea NOTE XX ; Start 10/09/16 at 20:30 Glucose (Glutose) 15 gm Q15M PRN PO DECREASED GLUCOSE; Start 10/09/16 at 20:30 Glucose (Glutose) 22.5 gm Q15M PRN PO DECREASED GLUCOSE; Start 10/09/16 at 20:30 Dextrose (D50w Syringe) 25 ml Q15M PRN IV DECREASED GLUCOSE Last administered on 10/14/16 00:31; Admin Dose 25 ML; Start 10/09/16 at 20:30 Dextrose (D50w Syringe) 50 ml Q15M PRN IV DECREASED GLUCOSE Last administered on 10/11/16 17:37; Admin Dose 50 ML; Start 10/09/16 at 20:30 Glucagon (Glucagen) 1 mg Q15M PRN IM DECREASED GLUCOSE; Start 10/09/16 at 20:30 Glucose 15 gm 15 gm Q15M PRN BUCCAL DECREASED GLUCOSE; Start 10/09/16 at 20:30 Propofol (Diprivan) 100 ml @ 3 mls/hr Q12H IV Last administered on 10/13/16 19: 03; Admin Dose 3 MLS/HR; Start 10/11/16 at 09:30 Heparin Sodium (Porcine) 5000 unit 5,000 unit Q12 SC Last administered on 08:42; Admin Dose 5,000 UNIT; Start 10/11/16 at 21:00 Dextrose/Sodium Chloride (D5-1/4ns) 1,000 ml @ 60 mls/hr [id number] IV Last administered on 10/14/16 02:24; Admin Dose 60 MLS/HR; Start 10/11/16 at 18:30 Insulin Glargine (Lantus) 20 unit DAILY@08 SC ; Start 10/15/16 at 08:00; Status UNV Metoclopramide HCl (Reglan) 10 mg Q6 IV ; Start 10/14/16 at 12:00; Status UNV DAMIR MARTINEZ MD Oct 14, 2016 09:07
[2016-10-14] MEDS: PROPOFOL 100 ML IV SCH ×2 (09:30→21:30)
--- NOTE | 2016-10-14 09:36 | RADRPT ---
PROCEDURE: XR Chest. CLINICAL INDICATION: On ventilator. TECHNIQUE: Single frontal portable chest was obtained. COMPARISON: 10/08/2016. FINDINGS: There is mild cardiomegaly. The upper lobe vasculature is mildly prominent. Mild diffuse interstit ial opacities increased slightly. No airspace consolidation is seen. There is a small right pleura l effusion. No pneumothorax The endotracheal tube, left PICC line, and nasogastric tubes appear unc hanged. New right-sided central venous dialysis catheter with the tip at the atriocaval junction. IMPRESSION: 1. Mild diffuse interstitial opacities with apparent mild vascular congestion. 2. Small right pleural effusion. 3. No confluent airspace process identified. 4. New central venous dialysis catheter on the right with the tip at the cavoatrial junction. RPTAT: [facility] Physician Radha Date Time Electronically viewed and signed by Willem Worthington Physician on 10/14/2016 09:36 /
[2016-10-14] MEDS: ALBUMIN HUMAN 25% 50 ML IV PRN ×2 (09:56→09:57)
--- NOTE | 2016-10-14 11:58 | CONS ---
Date/Time of Note Date/Time of Note DATE: 10/14/16 TIME: 11:55 Assessment/Plan Assessment/Plan Additional Assessment/Plan Chest x-ray was reviewed from today which is essentially clear. Endotracheal tube is at an adequate level. Ventilator settings; AC of 14, tidal volume 500, PEEP of 5, 30% FiO2. Assessment recommendations; next 1. Patient admitted with acute HI and acute renal failure requiring mechanical ventilation, failed extubation trial. 2. Generalized anasarca. 3. Significant overall clinical improvement. 4. Renal failure requiring hemodialysis. 5. Generalized weakness. 6. Paroxysmal atrial fibrillation. Continue current treatment. Give the patient a CPAP trial again. I did have a detailed discussion the patient's and daughter at bedside and answered all their questions. If the patient does well with an extra hour on CPAP repeat ABG will be done and if the patient meets criteria she would be extubated. Consultation Date/Type/Reason Admit Date/Time Sep 20, 2016 at 19:21 Initial Consult Date 09/23/16 Type of Consultation: Pulm/CCM Referring Provider: ZANDRA ROBISON MD, [facility] 24 HR Interval Summary Free Text/Dictation Patient's condition remains critical but stable. Patient is completely awake alert and is requiring very minimal sedation with propofol drip. Currently getting hemodialysis at bedside. General exam; elderly lady, orally intubated, awake and alert. Currently in no distress. Exam/Review of Systems Vital Signs Vitals Vital Signs Date Time Temp Pulse Resp B/P Pulse Ox O2 Delivery O2 Flow Rate FiO2 10/14/16 11:45 95 20 10/14/16 11:00 94/59 97 Mechanical Ventilator 10/14/16 10:55 30 10/14/16 08:00 98.3 10/11/16 12:30 2 Intake and Output 10/13/16 10/13/16 10/14/16 15:00 23:00 07:00 Intake Total 299 ml 194 ml 461.4 ml Output Total 15 ml 5 ml 15 ml Balance 284 ml 189 ml 446.4 ml Exam HEENT exam is; supple neck, no JVD. No lymphadenopathy. Midline trachea. Orally intubated. Patient has fair dentition. Pupils are small bilaterally. No neck masses. No neck bruits. No thyromegaly. Chest examination; diminished but clear breath sounds bilaterally. S1-S2 audible, no murmurs. Regular rhythm. Abdomen examination; soft, nondistended. No organomegaly. Bowel sounds audible. G-tube in place. Extremity exam is; 2+ anasarca. Pulses 1+ bilaterally. There are areas of gangrene involving toes bilaterally. [employer] OPER[employer] examination; patient is awake alert able to move both upper and right lower extremity on command. Results Result Diagram: 10/14/1620 10/14/1620 Results 24 hrs Laboratory Tests Test 10/13/16 17:34 10/14/16 00:26 10/14/16 00:49 10/14/16 02:22 Bedside Glucose 120 61 L 96 73 Test 10/14/16 02:49 10/14/16 05:00 10/14/16 05:10 10/14/16 05:14 Bedside Glucose 78 101 Blood Gas Specimen Source Blood arterial Arterial Blood Date Drawn 10/14/2016 5:02:50 AM Arterial Blood pH (Temp corrected) 7.483 H Arterial Blood pCO2 (Temp correct) 30.3 L Arterial Blood pO2 (Temp corrected) 146.7 H Arterial Blood HCO3 22.2 Arterial Blood Base Excess -0.7 Arterial Blood Oxygen Saturation 98.9 H Raz Test ACCEPTAB Arterial Blood Gas Puncture Site Left Radial Arterial Blood Carboxyhemoglobin 0.6 Arterial Blood Methemoglobin 0.5 Blood Gas A-a O2 Differential 103.7 H Oxyhemoglobin Percent 97.8 Total Hemoglobin 9.2 L Blood Gas Temperature 37.0 Blood Gas Respiration Rate 12.0 Blood Gas Actual Respiration Rate 21 Blood Gas Modality VENT - SIMV FiO2 40.0 Blood Gas Tidal Volume 450.0 Blood Gas Low PEEP Setting 5.0 Blood Gas Pressure Support 16 Blood Gas Notified Whom BR Blood Gas Notified Time 10/14/2016 5:10:37 AM Lactic Acid Level 1.6 Test 10/14/16 05:20 10/14/16 07:48 White Blood Count 13.0 H Red Blood Count 2.90 L Hemoglobin 8.4 L Hematocrit 28.6 L Mean Corpuscular Volume 98.6 Mean Corpuscular Hemoglobin 29.0 Mean Corpuscular Hemoglobin Concent 29.4 L Red Cell Distribution Width 26.0 H Platelet Count 146 Mean Platelet Volume 12.0 H Neutrophils % 85.0 H Lymphocytes % 6.4 L Monocytes % 7.1 Eosinophils % 0.5 Basophils % 0.2 Nucleated Red Blood Cells % 2.0 H Neutrophils # 11.1 H Lymphocytes # 0.8 Monocytes # 0.9 Eosinophils # 0.1 Basophils # 0.0 Nucleated Red Blood Cells # 0.3 H Sodium Level 141 Potassium Level 4.4 Chloride Level 104 Carbon Dioxide Level 24 Anion Gap 17 H Blood Urea Nitrogen 106 H Creatinine 2.95 H Glucose Level 90 # Calcium Level 7.5 L Bedside Glucose 143 Medications Medications Current Medications Acetaminophen (Tylenol Liquid) 650 mg Q4H PRN NGT PAIN AND OR ELEVATED TEMP Last administered on 09/27/16 05:14; Admin Dose 650 MG; Start 09/21/16 at 02:00 Eye Lubricant (Artificial Tears Oph) 2 drop QID BOTH EYES Last administered on 10/14/16 08:43; Admin Dose 2 DROP; Start 09/21/16 at 09:00 Atorvastatin Calcium (Lipitor) 80 mg HS NGT Last administered on 10/13/16 21:15 ; Admin Dose 80 MG; Start 09/22/16 at 21:00 Pantoprazole (Protonix Iv) 40 mg AM IV Last administered on 10/14/16 08:40; Admin Dose 40 MG; Start 09/26/16 at 09:00 Epoetin Raj (Epogen (Esrd)) 10,000 units TuThSa@17 SC Last administered on 10/12 17:56; Admin Dose 10,000 UNITS; Start 09/26/16 at 17:00 IV Flush (NS 10 ml) 10 ml PRN PRN IV IV PROTOCOL; Start 09/26/16 at 17:30 Aspirin (Aspirin) 81 mg DAILY NGT Last administered on 10/14/16 08:41; Admin Dose 81 MG; Start 09/27/16 at 09:00 Clopidogrel Bisulfate (plaVIX) 75 mg DAILY NGT Last administered on 10/14/16 08:41; Admin Dose 75 MG; Start 09/27/16 at 09:00 Morphine Sulfate (morphine) 2 mg Q4H PRN IV PAIN Last administered on 08:39; Admin Dose 2 MG; Start 09/28/16 at 16:00 Sodium Biphosphate/ Sodium Phosphate 133 ml 133 ml DAILY PRN [place] CONSTIPATION Last administered on 10/09/16 00:50; Admin Dose 133 ML; Start 10/01/16 at 17:00 Norepinephrine/ Dextrose (Levophed/D5W) 500 ml @ 1.87 mls/hr TITRATE IV ; Start 10/04/16 at 07:00 Fluconazole 100 mg 100 mg DAILY GTB Last administered on 10/14/16 08:41; Admin Dose 100 MG; Start 10/05/16 at 09:00 Midazolam HCl 50 ml @ 1 mls/hr TITRATE IV Last administered on 10/07/16 09:47; Admin Dose 3 MLS/HR; Start 10/07/16 at 10:00 Dopamine HCl/ Dextrose 250 ml @ 7.5 mls/hr TITRATE IV Last administered on 10/07 11:00; Admin Dose 37.5 MLS/HR; Start 10/07/16 at 11:30 Lactobacillus Acidoph/Bulgaricus (Floranex) 1 tab TID PO Last administered on 08:41; Admin Dose 1 TAB; Start 10/09/16 at 21:00 Insulin Aspart (Novolog Insulin Pen) NOVOLOG *MODERATE* ALGORI... Q6 SC Last administered on 10/13/16 11:51; Admin Dose 6 UNIT; Start 10/10/16 at 00:00 Miscellaneous Information 1 ea NOTE XX ; Start 10/09/16 at 20:30 Glucose (Glutose) 15 gm Q15M PRN PO DECREASED GLUCOSE; Start 10/09/16 at 20:30 Glucose (Glutose) 22.5 gm Q15M PRN PO DECREASED GLUCOSE; Start 10/09/16 at 20:30 Dextrose (D50w Syringe) 25 ml Q15M PRN IV DECREASED GLUCOSE Last administered on 10/14/16 00:31; Admin Dose 25 ML; Start 10/09/16 at 20:30 Dextrose (D50w Syringe) 50 ml Q15M PRN IV DECREASED GLUCOSE Last administered on 10/11/16 17:37; Admin Dose 50 ML; Start 10/09/16 at 20:30 Glucagon (Glucagen) 1 mg Q15M PRN IM DECREASED GLUCOSE; Start 10/09/16 at 20:30 Glucose 15 gm 15 gm Q15M PRN BUCCAL DECREASED GLUCOSE; Start 10/09/16 at 20:30 Propofol (Diprivan) 100 ml @ 3 mls/hr Q12H IV Last administered on 10/13/16 19: 03; Admin Dose 3 MLS/HR; Start 10/11/16 at 09:30 Heparin Sodium (Porcine) 5000 unit 5,000 unit Q12 SC Last administered on 08:42; Admin Dose 5,000 UNIT; Start 10/11/16 at 21:00 Dextrose/Sodium Chloride (D5-1/4ns) 1,000 ml @ 60 mls/hr [id number] IV Last administered on 10/14/16 02:24; Admin Dose 60 MLS/HR; Start 10/11/16 at 18:30 Insulin Glargine (Lantus) 20 unit DAILY@08 SC ; Start 10/15/16 at 08:00 Metoclopramide HCl (Reglan) 5 mg Q6 IV ; Start 10/14/16 at 12:00 ADIS CAMACHO Oct 14, 2016 11:58
[2016-10-14] MEDS: METOCLOPRAMIDE 10 MG INJ IV SCH ×2 (12:58→18:36)
--- NOTE | 2016-10-14 13:07 | PN ---
DATE: 10/14/2016 SUBJECTIVE: No acute changes overnight. The patient is on vent, in hemodialysis, looks comfortable , no fevers. VITAL SIGNS: WBC 98.3, pulse 102, respirations 19, blood pressure 94/59, saturation 97% on 30 FIO2. WBC 13, H and H 8.4 and 28.6, platelets 146, neutrophils 85. INDWELLINGS: Endotracheal tube, NG tube, right subclavian Perm-A-Cath placed on 10/11/2016, left up per extremity PICC line, Rivas. DIAGNOSTICS: Chest x-ray revealed mild vascular congestion, no confluent air space process. ANTIMICROBIALS: Patient is on: 1. Fluconazole. 2. Status post 2 weeks of Zosyn. PHYSICAL EXAMINATION: GENERAL: This is a morbidly obese elderly woman who is in no distress. HEENT: Head atraumatic, normocephalic. Sclerae anicteric. Buccal mucosa dry. NECK: Supple, trachea midline. CHEST: Rise symmetrical. Breath sounds diminished to bases. HEART: S1, S2. ABDOMEN: Soft, bowel tones present. EXTREMITIES: With cyanotic toes. ASSESSMENT: 1. Status post septic shock. 2. Status post healthcare-associated pneumonia. 3. Acute renal failure, on hemodialysis. 4. Erica albicans urinary tract infection. 5. Acute myocardial infarction, status post cardiac arrest, status post PTCA. 6. Morbid obesity. PLAN: The patient is hemodynamically stable, completed antibiotics. We are going to discontinue Di flucan and we will panculture her if she spikes fever. Dictated By: ROSALINA SIMS AGRICULTURAL SERVICES DIRECTOR for NOEMI LARA/JERROD Conf#: [id number] DID#: [id number]
[2016-10-14 13:09] LABS: Allen Test ACCEPTAB; Arterial Base Excess 2.2 mmol/L (-3.0-3); Arterial COHb 0.3 % (0.0-3.0); Arterial Fraction of Oxyhgb 98.7 % (93.0-99.0); Arterial HCO3 25.6 mmol/L (22.0-26.0); Arterial MetHb 0.4 % (0.0-1.5); Arterial Total Hemglobin 9.1 g/dl (12.0-18.0); Blood Gas PS 10
[2016-10-14 13:16] LABS: MODE VENT - CPAP
[2016-10-14] MEDS: ATORVASTATIN 80 MG TAB NGT SCH (20:52)
[2016-10-15] VITALS (47 sets, daily range): BP systolic 92–144; BP diastolic 46–71; PULSE 74–90; RESP 11–20
[2016-10-15] MEDS: METOCLOPRAMIDE 10 MG INJ IV SCH ×5 (00:44→23:46)
[2016-10-15] MEDS: INSULIN ASPART [NOVOLOG] 3 ML PEN SC SCH ×5 (00:45→23:47)
[2016-10-15] MEDS: morphine 2 MG INJ IV PRN (01:38)
[2016-10-15] MEDS: ACETYLCYSTEINE 20% 4 ML VIAL NEB SCH ×4 (01:59→19:08)
[2016-10-15] MEDS: LEVALBUTEROL (HFA) 15 GM INHALER INH SCH ×4 (01:59→20:00)
[2016-10-15] MEDS: IPRATROPIUM (HFA) 12.9 GM INHALER INH SCH ×4 (01:59→20:00)
[2016-10-15] MEDS: DEXTROSE 5%-0.225% NACL 1,000 ML IV SCH (05:18)
[2016-10-15 05:49] LABS: ADD SCAN DIFF NO
[2016-10-15 05:54] LABS: ABNORMAL IP MESSAGE 1; BASOPHILS % 0.2 % (0.0-2.0); EOSINOPHILS % 0.2 % (0.0-7.0); HEMATOCRIT 27.6 % (37.0-47.0); HEMOGLOBIN 8.2 g/dl (12.0-16.0); LYMPHOCYTES # 0.8 10^3/ul (0.8-2.9); LYMPHOCYTES % 7.8 % (15.0-51.0); MEAN CORPUSCULAR HEMOGLOBIN 29.7 pg (29.0-33.0); MEAN CORPUSCULAR HGB CONC 29.7 g/dl (32.0-37.0); MEAN PLATELET VOLUME 11.9 fl (7.4-10.4); MONOCYTE # 0.6 10^3/ul (0.3-0.9); MONOCYTES % 6.2 % (0.0-11.0); NEUTROPHIL # 8.6 10^3/ul (1.6-7.5); NEUTROPHILS % 84.9 % (39.0-77.0); NUCLEATED RED BLOOD CELLS # 0.1 10^3/ul (0.0-0.0); NUCLEATED RED BLOOD CELLS% 1.2 /100WBC (0.0-0.0); PLATELET COUNT 126 10^3/UL (140-415); RED BLOOD COUNT 2.76 10^6/ul (4.20-5.40); RED CELL DISTRIBUTION WIDTH 25.9 % (11.5-14.5); WHITE BLOOD COUNT 10.2 10^3/ul (4.8-10.8)
[2016-10-15 06:15] LABS: ALBUMIN 2.5 g/dl (3.3-4.9); ALBUMIN/GLOBULIN RATIO 0.83; BILIRUBIN,DIRECT 0.4 mg/dl (0.00-0.20); BILIRUBIN,INDIRECT 0.6 mg/dl (0-1.1); CALCIUM 7.7 mg/dl (8.4-10.2); MAGNESIUM 2.3 mg/dl (1.7-2.5); PHOSPHORUS 6.1 mg/dl (2.5-4.9); POTASSIUM 4.4 mmol/L (3.5-5.1); TOTAL PROTEIN 5.5 g/dl (6.1-8.1)
[2016-10-15 06:25] LABS: CREATININE 3.02 mg/dl (0.44-1.00)
--- NOTE | 2016-10-15 08:31 | CONS ---
Date/Time of Note Date/Time of Note DATE: 10/15/16 TIME: 08:27 Assessment/Plan Assessment/Plan Chief Complaint/Hosp Course 1. Acute Renal Failure due to ATN , oliguric . Her BUN has been high . I ordered 2 hours of DUF today and hemodialysis for tomorrow . I would recommend we continue dialysis every other day. 2. ALOC , she is improved but sedated today 3. liver enzyme elevation due to anoxia , enzymes are decreasing . 4. hypotension , she is now normotensive off pressors. 5. hypocalcemia/hypoalbuminemia , calcium is higher 6. anemia , she has not had any recent GI bleeding , blood transfused with last dialysis . 7. peripheral vascular disease . 8. respiratory failure , ventilator dependent . Problems: Consultation Date/Type/Reason Admit Date/Time Sep 20, 2016 at 19:21 Initial Consult Date 09/23/16 Type of Consultation: Pulm/CCM Referring Provider: ZANDRA ROBISON MD, [facility] 24 HR Interval Summary Free Text/Dictation She is in ICU , sedated ,on vent . Subjective hx not possible: pt non-verbal Exam/Review of Systems Vital Signs Vitals Vital Signs Date Time Temp Pulse Resp B/P Pulse Ox O2 Delivery O2 Flow Rate FiO2 10/15/16 07:30 80 16 106/51 100 Mechanical Ventilator 10/15/16 05:44 30 10/15/16 04:00 97.2 10/11/16 12:30 2 Intake and Output 10/14/16 10/14/16 10/15/16 15:00 23:00 07:00 Intake Total 870.8 ml 331 ml 326 ml Output Total 2225 ml 8 ml 25 ml Balance -1354.2 ml 323 ml 301 ml Exam Constitutional: frail Respiratory: clear to auscultation, diminished breath sounds Cardiovascular: regular rate and rhythm Gastrointestinal: soft Results Result Diagram: 10/15/16 0500 10/15/16 0500 Results 24 hrs Laboratory Tests Test 10/14/16 12:42 10/14/16 12:53 10/14/16 18:32 10/15/16 00:42 Blood Gas Specimen Source Blood arterial Arterial Blood Date Drawn 10/14/2016 12:55:00 PM Arterial Blood pH (Temp corrected) 7.485 H Arterial Blood pCO2 (Temp correct) 34.7 L Arterial Blood pO2 (Temp corrected) 442.8 H Arterial Blood HCO3 25.6 Arterial Blood Base Excess 2.2 Arterial Blood Oxygen Saturation 99.4 H Raz Test ACCEPTAB Arterial Blood Gas Puncture Site Right Radial Arterial Blood Carboxyhemoglobin 0.3 Arterial Blood Methemoglobin 0.4 Oxyhemoglobin Percent 98.7 Total Hemoglobin 9.1 L Blood Gas Temperature 37.0 Blood Gas Actual Respiration Rate 13 Blood Gas Modality VENT - CPAP FiO2 30.0 Blood Gas Low PEEP Setting 5.0 Blood Gas Pressure Support 10 Blood Gas Critical Value Read Back K TIERRA RN Blood Gas Notified Whom JLD Blood Gas Notified Time 10/14/2016 1:09:00 PM Bedside Glucose 158 160 218 Test 10/15/16 05:00 10/15/16 05:11 White Blood Count 10.2 # Red Blood Count 2.76 L Hemoglobin 8.2 L Hematocrit 27.6 L Mean Corpuscular Volume 100.0 Mean Corpuscular Hemoglobin 29.7 Mean Corpuscular Hemoglobin Concent 29.7 L Red Cell Distribution Width 25.9 H Platelet Count 126 L Mean Platelet Volume 11.9 H Neutrophils % 84.9 H Lymphocytes % 7.8 L Monocytes % 6.2 Eosinophils % 0.2 Basophils % 0.2 Nucleated Red Blood Cells % 1.2 H Neutrophils # 8.6 H Lymphocytes # 0.8 Monocytes # 0.6 Eosinophils # 0.0 Basophils # 0.0 Nucleated Red Blood Cells # 0.1 H Sodium Level 135 Potassium Level 4.4 Chloride Level 102 Carbon Dioxide Level 26 Anion Gap 11 Blood Urea Nitrogen 81 H Creatinine 3.02 H Glucose Level 274 #H Calcium Level 7.7 L Phosphorus Level 6.1 H Magnesium Level 2.3 Total Bilirubin 1.0 Direct Bilirubin 0.40 H Indirect Bilirubin 0.6 Aspartate Amino Transf (AST/SGOT) 542 H Alanine Aminotransferase (ALT/SGPT) 208 H Alkaline Phosphatase 314 H Total Protein 5.5 L Albumin 2.5 L Globulin 3.00 Albumin/Globulin Ratio 0.83 Bedside Glucose 270 H Medications Medications Current Medications Acetaminophen (Tylenol Liquid) 650 mg Q4H PRN NGT PAIN AND OR ELEVATED TEMP Last administered on 09/27/16 05:14; Admin Dose 650 MG; Start 09/21/16 at 02:00 Eye Lubricant (Artificial Tears Oph) 2 drop QID BOTH EYES Last administered on 10/14/16 21:04; Admin Dose 2 DROP; Start 09/21/16 at 09:00 Atorvastatin Calcium (Lipitor) 80 mg HS NGT Last administered on 10/14/16 20: 52; Admin Dose 80 MG; Start 09/22/16 at 21:00 Pantoprazole (Protonix Iv) 40 mg AM IV Last administered on 10/14/16 08:40; Admin Dose 40 MG; Start 09/26/16 at 09:00 Epoetin Raj (Epogen (Esrd)) 10,000 units TuThSa@17 SC Last administered on 10/12 17:56; Admin Dose 10,000 UNITS; Start 09/26/16 at 17:00 IV Flush (NS 10 ml) 10 ml PRN PRN IV IV PROTOCOL; Start 09/26/16 at 17:30 Aspirin (Aspirin) 81 mg DAILY NGT Last administered on 10/14/16 08:41; Admin Dose 81 MG; Start 09/27/16 at 09:00 Clopidogrel Bisulfate (plaVIX) 75 mg DAILY NGT Last administered on 10/14/16 08:41; Admin Dose 75 MG; Start 09/27/16 at 09:00 Morphine Sulfate (morphine) 2 mg Q4H PRN IV PAIN Last administered on 01:38; Admin Dose 2 MG; Start 09/28/16 at 16:00 Sodium Biphosphate/ Sodium Phosphate 133 ml 133 ml DAILY PRN [place] CONSTIPATION Last administered on 10/09/16 00:50; Admin Dose 133 ML; Start 10/01/16 at 17:00 Norepinephrine 16 mg/Dextrose 500 ml @ 1.87 mls/hr TITRATE IV ; Start 10/04/16 at 07:00 Midazolam HCl 50 ml @ 1 mls/hr TITRATE IV Last administered on 10/07/16 09:47; Admin Dose 3 MLS/HR; Start 10/07/16 at 10:00 Dopamine HCl/ Dextrose 250 ml @ 7.5 mls/hr TITRATE IV Last administered on 10/07 11:00; Admin Dose 37.5 MLS/HR; Start 10/07/16 at 11:30 Lactobacillus Acidoph/Bulgaricus (Floranex) 1 tab TID PO Last administered on 20:52; Admin Dose 1 TAB; Start 10/09/16 at 21:00 Insulin Aspart (Novolog Insulin Pen) NOVOLOG *MODERATE* ALGORI... Q6 SC Last administered on 10/15/16 05:14; Admin Dose 8 UNIT; Start 10/10/16 at 00:00 Miscellaneous Information 1 ea NOTE XX ; Start 10/09/16 at 20:30 Glucose (Glutose) 15 gm Q15M PRN PO DECREASED GLUCOSE; Start 10/09/16 at 20:30 Glucose (Glutose) 22.5 gm Q15M PRN PO DECREASED GLUCOSE; Start 10/09/16 at 20:30 Dextrose (D50w Syringe) 25 ml Q15M PRN IV DECREASED GLUCOSE Last administered on 10/14/16 00:31; Admin Dose 25 ML; Start 10/09/16 at 20:30 Dextrose (D50w Syringe) 50 ml Q15M PRN IV DECREASED GLUCOSE Last administered on 10/11/16 17:37; Admin Dose 50 ML; Start 10/09/16 at 20:30 Glucagon (Glucagen) 1 mg Q15M PRN IM DECREASED GLUCOSE; Start 10/09/16 at 20:30 Glucose 15 gm 15 gm Q15M PRN BUCCAL DECREASED GLUCOSE; Start 10/09/16 at 20:30 Propofol (Diprivan) 100 ml @ 3 mls/hr Q12H IV Last administered on 10/13/16 19: 03; Admin Dose 3 MLS/HR; Start 10/11/16 at 09:30 Heparin Sodium (Porcine) 5000 unit 5,000 unit Q12 SC Last administered on 20:53; Admin Dose 5,000 UNIT; Start 10/11/16 at 21:00 Dextrose/Sodium Chloride (D5-1/4ns) 1,000 ml @ 60 mls/hr [id number] IV Last administered on 10/14/16 02:24; Admin Dose 60 MLS/HR; Start 10/11/16 at 18:30 Insulin Glargine (Lantus) 20 unit DAILY@08 SC ; Start 10/15/16 at 08:00 Metoclopramide HCl (Reglan) 5 mg Q6 IV Last administered on 10/15/16 05:13; Admin Dose 5 MG; Start 10/14/16 at 12:00 DAMIR MARTINEZ MD Oct 15, 2016 08:31
[2016-10-15] MEDS: LACTOBACILLUS CHEW TAB PO SCH ×3 (09:12→20:57)
[2016-10-15] MEDS: CLOPIDOGREL 75 MG TAB NGT SCH (09:13)
[2016-10-15] MEDS: ASPIRIN 81 MG TAB NGT SCH (09:13)
[2016-10-15] MEDS: HEPARIN 5,000 UNIT/0.5 ML VIAL SC SCH ×2 (09:14→21:04)
[2016-10-15] MEDS: ARTIFICIAL TEARS 15 ML OPH BOTH EYES SCH ×4 (09:17→21:01)
[2016-10-15] MEDS: INSULIN GLARGINE [LANtus] 3 ML PEN SC SCH (09:17)
[2016-10-15] MEDS: PANTOPRAZOLE 40 MG INJ IV SCH (09:17)
--- NOTE | 2016-10-15 09:29 | CONS ---
Date/Time of Note Date/Time of Note DATE: 10/15/16 TIME: 09:26 Assessment/Plan Assessment/Plan Additional Assessment/Plan Ventilator setting; AC of 16, tidal volume 500, PEEP of 5, 30% FiO2. Patient currently on propofol at 5 mics per kilogram per minute. Assessment recommendations; 1. Patient admitted with acute PA with respiratory failure and acute renal failure requiring hemodialysis now 2. Generalized anasarca. 3. Generalized muscular weakness. Precluding weaning from ventilator. 4. Paroxysmal atrial fibrillation, currently in sinus rhythm. Stop sedation again and switch the patient to CPAP mode for another weaning trial. Meanwhile continue current treatment. Consultation Date/Type/Reason Admit Date/Time Sep 20, 2016 at 19:21 Initial Consult Date 09/23/16 Type of Consultation: Pulm/CCM Referring Provider: ZANDRA ROBISON MD, [facility] 24 HR Interval Summary Free Text/Dictation Patient condition remains critical. She still requiring full ventilator support. Patient however is completely awake and alert. And follows simple commands. Has remained hemodynamically stable. Exam; elderly lady, orally intubated, awake and alert. Currently in no distress. Exam/Review of Systems Vital Signs Vitals Vital Signs Date Time Temp Pulse Resp B/P Pulse Ox O2 Delivery O2 Flow Rate FiO2 10/15/16 07:30 80 16 106/51 100 Mechanical Ventilator 10/15/16 05:44 30 10/15/16 04:00 97.2 10/11/16 12:30 2 Intake and Output 10/14/16 10/14/16 10/15/16 14:59 22:59 06:59 Intake Total 904.6 ml 296 ml 364 ml Output Total 2225 ml 8 ml 25 ml Balance -1320.4 ml 288 ml 339 ml Exam H EENT exam; supple neck, positive JVD. No lymphadenopathy. Midline trachea. No thyromegaly. Orally intubated. Dentition is fair. Pupils are small bilaterally. Chest examination PA: Diminished but clear breath sounds. S1-S2 audible, no murmurs. Regular rhythm. Abdomen examination; nontender. No organomegaly. Bowel sounds audible. Extremity exam; 2+ anasarca. Multiple ecchymoses are present in all 4 extremities. [employer] DES[employer] examination; patient is awake and follows simple commands but still has significant generalized weakness. Results Result Diagram: 10/15/16 0500 10/15/16 0500 Results 24 hrs Laboratory Tests Test 10/14/16 12:42 10/14/16 12:53 10/14/16 18:32 10/15/16 00:42 Blood Gas Specimen Source Blood arterial Arterial Blood Date Drawn 10/14/2016 12:55:00 PM Arterial Blood pH (Temp corrected) 7.485 H Arterial Blood pCO2 (Temp correct) 34.7 L Arterial Blood pO2 (Temp corrected) 442.8 H Arterial Blood HCO3 25.6 Arterial Blood Base Excess 2.2 Arterial Blood Oxygen Saturation 99.4 H Raz Test ACCEPTAB Arterial Blood Gas Puncture Site Right Radial Arterial Blood Carboxyhemoglobin 0.3 Arterial Blood Methemoglobin 0.4 Oxyhemoglobin Percent 98.7 Total Hemoglobin 9.1 L Blood Gas Temperature 37.0 Blood Gas Actual Respiration Rate 13 Blood Gas Modality VENT - CPAP FiO2 30.0 Blood Gas Low PEEP Setting 5.0 Blood Gas Pressure Support 10 Blood Gas Critical Value Read Back K TIERRA RN Blood Gas Notified Whom JLD Blood Gas Notified Time 10/14/2016 1:09:00 PM Bedside Glucose 158 160 218 Test 10/15/16 05:00 10/15/16 05:11 10/15/16 09:11 White Blood Count 10.2 # Red Blood Count 2.76 L Hemoglobin 8.2 L Hematocrit 27.6 L Mean Corpuscular Volume 100.0 Mean Corpuscular Hemoglobin 29.7 Mean Corpuscular Hemoglobin Concent 29.7 L Red Cell Distribution Width 25.9 H Platelet Count 126 L Mean Platelet Volume 11.9 H Neutrophils % 84.9 H Lymphocytes % 7.8 L Monocytes % 6.2 Eosinophils % 0.2 Basophils % 0.2 Nucleated Red Blood Cells % 1.2 H Neutrophils # 8.6 H Lymphocytes # 0.8 Monocytes # 0.6 Eosinophils # 0.0 Basophils # 0.0 Nucleated Red Blood Cells # 0.1 H Sodium Level 135 Potassium Level 4.4 Chloride Level 102 Carbon Dioxide Level 26 Anion Gap 11 Blood Urea Nitrogen 81 H Creatinine 3.02 H Glucose Level 274 #H Calcium Level 7.7 L Phosphorus Level 6.1 H Magnesium Level 2.3 Total Bilirubin 1.0 Direct Bilirubin 0.40 H Indirect Bilirubin 0.6 Aspartate Amino Transf (AST/SGOT) 542 H Alanine Aminotransferase (ALT/SGPT) 208 H Alkaline Phosphatase 314 H Total Protein 5.5 L Albumin 2.5 L Globulin 3.00 Albumin/Globulin Ratio 0.83 Bedside Glucose 270 H 291 H Medications Medications Current Medications Acetaminophen (Tylenol Liquid) 650 mg Q4H PRN NGT PAIN AND OR ELEVATED TEMP Last administered on 09/27/16 05:14; Admin Dose 650 MG; Start 09/21/16 at 02:00 Eye Lubricant (Artificial Tears Oph) 2 drop QID BOTH EYES Last administered on 10/15/16 09:17; Admin Dose 2 DROP; Start 09/21/16 at 09:00 Atorvastatin Calcium (Lipitor) 80 mg HS NGT Last administered on 10/14/16 20: 52; Admin Dose 80 MG; Start 09/22/16 at 21:00 Pantoprazole (Protonix Iv) 40 mg AM IV Last administered on 10/15/16 09:17; Admin Dose 40 MG; Start 09/26/16 at 09:00 Epoetin Raj (Epogen (Esrd)) 10,000 units TuThSa@17 SC Last administered on 10/12 17:56; Admin Dose 10,000 UNITS; Start 09/26/16 at 17:00 IV Flush (NS 10 ml) 10 ml PRN PRN IV IV PROTOCOL; Start 09/26/16 at 17:30 Aspirin (Aspirin) 81 mg DAILY NGT Last administered on 10/15/16 09:13; Admin Dose 81 MG; Start 09/27/16 at 09:00 Clopidogrel Bisulfate (plaVIX) 75 mg DAILY NGT Last administered on 10/15/16 09:13; Admin Dose 75 MG; Start 09/27/16 at 09:00 Morphine Sulfate (morphine) 2 mg Q4H PRN IV PAIN Last administered on 01:38; Admin Dose 2 MG; Start 09/28/16 at 16:00 Sodium Biphosphate/ Sodium Phosphate 133 ml 133 ml DAILY PRN [place] CONSTIPATION Last administered on 10/09/16 00:50; Admin Dose 133 ML; Start 10/01/16 at 17:00 Norepinephrine 16 mg/Dextrose 500 ml @ 1.87 mls/hr TITRATE IV ; Start 10/04/16 at 07:00 Midazolam HCl 50 ml @ 1 mls/hr TITRATE IV Last administered on 10/07/16 09:47; Admin Dose 3 MLS/HR; Start 10/07/16 at 10:00 Dopamine HCl/ Dextrose 250 ml @ 7.5 mls/hr TITRATE IV Last administered on 10/07 11:00; Admin Dose 37.5 MLS/HR; Start 10/07/16 at 11:30 Lactobacillus Acidoph/Bulgaricus (Floranex) 1 tab TID PO Last administered on 09:12; Admin Dose 1 TAB; Start 10/09/16 at 21:00 Insulin Aspart (Novolog Insulin Pen) NOVOLOG *MODERATE* ALGORI... Q6 SC Last administered on 10/15/16 05:14; Admin Dose 8 UNIT; Start 10/10/16 at 00:00 Miscellaneous Information 1 ea NOTE XX ; Start 10/09/16 at 20:30 Glucose (Glutose) 15 gm Q15M PRN PO DECREASED GLUCOSE; Start 10/09/16 at 20:30 Glucose (Glutose) 22.5 gm Q15M PRN PO DECREASED GLUCOSE; Start 10/09/16 at 20:30 Dextrose (D50w Syringe) 25 ml Q15M PRN IV DECREASED GLUCOSE Last administered on 10/14/16 00:31; Admin Dose 25 ML; Start 10/09/16 at 20:30 Dextrose (D50w Syringe) 50 ml Q15M PRN IV DECREASED GLUCOSE Last administered on 10/11/16 17:37; Admin Dose 50 ML; Start 10/09/16 at 20:30 Glucagon (Glucagen) 1 mg Q15M PRN IM DECREASED GLUCOSE; Start 10/09/16 at 20:30 Glucose 15 gm 15 gm Q15M PRN BUCCAL DECREASED GLUCOSE; Start 10/09/16 at 20:30 Propofol (Diprivan) 100 ml @ 3 mls/hr Q12H IV Last administered on 10/13/16 19: 03; Admin Dose 3 MLS/HR; Start 10/11/16 at 09:30 Heparin Sodium (Porcine) 5000 unit 5,000 unit Q12 SC Last administered on 09:14; Admin Dose 5,000 UNIT; Start 10/11/16 at 21:00 Dextrose/Sodium Chloride (D5-1/4ns) 1,000 ml @ 60 mls/hr [id number] IV Last administered on 10/14/16 02:24; Admin Dose 60 MLS/HR; Start 10/11/16 at 18:30 Insulin Glargine (Lantus) 20 unit DAILY@08 SC Last administered on 10/15/16 09 :17; Admin Dose 20 UNIT; Start 10/15/16 at 08:00 Metoclopramide HCl (Reglan) 5 mg Q6 IV Last administered on 10/15/16 05:13; Admin Dose 5 MG; Start 10/14/16 at 12:00 ADIS CAMACHO Oct 15, 2016 09:29
[2016-10-15] MEDS: PROPOFOL 100 ML IV SCH ×2 (09:30→20:57)
--- NOTE | 2016-10-15 11:01 | PN ---
Date/Time of Note Date/Time of Note DATE: 10/15/16 TIME: 10:59 Assessment/Plan Lines/Catheters IV Catheter Type (from [facility] permacath [place] in Place (from Nrs): Yes Assessment/Plan Chief Complaint/Hosp Course -Acute renal failure: S/P Emergent Maninder catheter placement.S/P Perm cath today with IR -Left Axillary vein thrombosis: It seems the has developed DVT likely related to the left PICC line. Recommend removal of the line and to start anticoagulation post perm catheter placement -Bilateral lower extremity atherosclerosis with gangrene: It seems the patient has developed bilateral toe discoloration/gangrene. it may be related to her being on pressors for some time and possible blue toe syndrome. Will likely require a new Echo for eval of mural thrombus and CTA of abdomen and pelvis for possible aortoiliac disease as a source. However considering recent renal failure will await her renal function. Arterial U/S demonstrate triphasic flow -Will obtain lower extremity arterial ultrasound -Optimize vascular status (BP meds, diet, nutrition, exercise, sugar control, antiplatelets). -Discussed findings, plan and management with the primary service, and we will plan to notify family. -Thank you for allowing us to partake in the care of your patient. Please call with any questions. Problems: Subjective 24 Hr Interval Summary no new vascular events overnight Exam/Review of Systems Vital Signs Vitals Vital Signs Date Time Temp Pulse Resp B/P Pulse Ox O2 Delivery O2 Flow Rate FiO2 10/15/16 07:30 80 16 106/51 100 Mechanical Ventilator 10/15/16 05:44 30 10/15/16 04:00 97.2 10/11/16 12:30 2 Intake and Output 10/14/16 10/14/16 10/15/16 15:00 23:00 07:00 Intake Total 870.8 ml 331 ml 326 ml Output Total 2225 ml 8 ml 25 ml Balance -1354.2 ml 323 ml 301 ml Exam Free Text/Dictation GENERAL: Intubated and nonverbal, awake PULMONARY: Coarse breath sounds bilaterally. CARDIOVASCULAR: S1, S2 present. ABDOMEN: Soft, nontender, nondistended. Bowel sounds positive. Large truncal obesity and pannus. LOWER EXTREMITIES: RLE: Unable to palpate femoral pulse secondary to body habitus, nonpalpable pedal pulses. Motor, sensory, unable to ascertain secondary to being intubated. Capillary refill 3 to 4 seconds.right 1st toe gangrene and other toes with blue/purple discoloration unchanged LLE: Unable to palpate femoral pulse secondary to body habitus, nonpalpable pedal pulses. Motor, sensory, unable to ascertain secondary to being intubated. Capillary refill 3 to 4 seconds. Left 2st toe gangrene and other toes with blue/purple discoloration unchanged Results Result Diagram: 10/15/16 0500 10/15/16 0500 OG RODAS MD Oct 15, 2016 11:01
[2016-10-15 12:16] LABS: AADO2 Arterial 37.8 mmHg (7.0-24.0); Allen Test ACCEPTAB; Arterial Base Excess -0.1 mmol/L (-3.0-3); Arterial COHb 0.1 % (0.0-3.0); Arterial Fraction of Oxyhgb 97.5 % (93.0-99.0); Arterial HCO3 24.8 mmol/L (22.0-26.0); Arterial MetHb 0.4 % (0.0-1.5); Arterial Total Hemglobin 10.4 g/dl (12.0-18.0); Blood Gas PS 10; MODE VENT - CPAP
--- NOTE | 2016-10-15 12:27 | CONS ---
Date/Time of Note Date/Time of Note DATE: 10/15/16 TIME: 12:24 Assessment/Plan Assessment/Plan Chief Complaint/Hosp Course SUBJECTIVE: No acute changes overnight. The patient is on CPAP, looks comfortable, no fevers. INDWELLINGS: Endotracheal tube, NG tube, right subclavian Perm-A-Cath placed on 10/11/2016, left upper extremity PICC line, Rivas. PHYSICAL EXAMINATION: GENERAL: This is a morbidly obese elderly woman who is in no distress. HEENT: Head atraumatic, normocephalic. Sclerae anicteric. Buccal mucosa dry. NECK: Supple, trachea midline. CHEST: Rise symmetrical. Breath sounds diminished to bases. HEART: S1, S2. ABDOMEN: Soft, bowel tones present. EXTREMITIES: With cyanotic toes. ASSESSMENT: 1. Status post septic shock. 2. Status post healthcare-associated pneumonia. 3. Acute renal failure, on hemodialysis. 4. Erica albicans urinary tract infection. 5. Acute myocardial infarction, status post cardiac arrest, status post PTCA. 6. Morbid obesity. PLAN: The patient is hemodynamically stable, off antibiotics. Continue present care, lópez cx prn. DW staff Problems: Consultation Date/Type/Reason Admit Date/Time Sep 20, 2016 at 19:21 Initial Consult Date 09/23/16 Type of Consultation: id Referring Provider: ZANDRA ROBISON MD, [facility] Exam/Review of Systems Vital Signs Vitals Vital Signs Date Time Temp Pulse Resp B/P Pulse Ox O2 Delivery O2 Flow Rate FiO2 10/15/16 08:00 74 10/15/16 07:30 16 106/51 100 Mechanical Ventilator 10/15/16 05:44 30 10/15/16 04:00 97.2 10/11/16 12:30 2 Intake and Output 10/14/16 10/14/16 10/15/16 15:00 23:00 07:00 Intake Total 870.8 ml 331 ml 326 ml Output Total 2225 ml 8 ml 25 ml Balance -1354.2 ml 323 ml 301 ml Results Result Diagram: 10/15/16 0500 10/15/16 0500 Results 24 hrs Laboratory Tests Test 10/14/16 12:42 10/14/16 12:53 10/14/16 18:32 10/15/16 00:42 Blood Gas Specimen Source Blood arterial Arterial Blood Date Drawn 10/14/2016 12:55:00 PM Arterial Blood pH (Temp corrected) 7.485 H Arterial Blood pCO2 (Temp correct) 34.7 L Arterial Blood pO2 (Temp corrected) 442.8 H Arterial Blood HCO3 25.6 Arterial Blood Base Excess 2.2 Arterial Blood Oxygen Saturation 99.4 H Raz Test ACCEPTAB Arterial Blood Gas Puncture Site Right Radial Arterial Blood Carboxyhemoglobin 0.3 Arterial Blood Methemoglobin 0.4 Oxyhemoglobin Percent 98.7 Total Hemoglobin 9.1 L Blood Gas Temperature 37.0 Blood Gas Actual Respiration Rate 13 Blood Gas Modality VENT - CPAP FiO2 30.0 Blood Gas Low PEEP Setting 5.0 Blood Gas Pressure Support 10 Blood Gas Critical Value Read Back K TIERRA RN Blood Gas Notified Whom JLD Blood Gas Notified Time 10/14/2016 1:09:00 PM Bedside Glucose 158 160 218 Test 10/15/16 05:00 10/15/16 05:11 10/15/16 09:11 10/15/16 11:40 White Blood Count 10.2 # Red Blood Count 2.76 L Hemoglobin 8.2 L Hematocrit 27.6 L Mean Corpuscular Volume 100.0 Mean Corpuscular Hemoglobin 29.7 Mean Corpuscular Hemoglobin Concent 29.7 L Red Cell Distribution Width 25.9 H Platelet Count 126 L Mean Platelet Volume 11.9 H Neutrophils % 84.9 H Lymphocytes % 7.8 L Monocytes % 6.2 Eosinophils % 0.2 Basophils % 0.2 Nucleated Red Blood Cells % 1.2 H Neutrophils # 8.6 H Lymphocytes # 0.8 Monocytes # 0.6 Eosinophils # 0.0 Basophils # 0.0 Nucleated Red Blood Cells # 0.1 H Sodium Level 135 Potassium Level 4.4 Chloride Level 102 Carbon Dioxide Level 26 Anion Gap 11 Blood Urea Nitrogen 81 H Creatinine 3.02 H Glucose Level 274 #H Calcium Level 7.7 L Phosphorus Level 6.1 H Magnesium Level 2.3 Total Bilirubin 1.0 Direct Bilirubin 0.40 H Indirect Bilirubin 0.6 Aspartate Amino Transf (AST/SGOT) 542 H Alanine Aminotransferase (ALT/SGPT) 208 H Alkaline Phosphatase 314 H Total Protein 5.5 L Albumin 2.5 L Globulin 3.00 Albumin/Globulin Ratio 0.83 Bedside Glucose 270 H 291 H Blood Gas Specimen Source Blood arterial Arterial Blood Date Drawn 10/15/2016 12:05:40 PM Arterial Blood pH (Temp corrected) 7.393 Arterial Blood pCO2 (Temp correct) 41.6 Arterial Blood pO2 (Temp corrected) 127.2 H Arterial Blood HCO3 24.8 Arterial Blood Base Excess -0.1 Arterial Blood Oxygen Saturation 98.0 Raz Test ACCEPTAB Arterial Blood Gas Puncture Site Left Radial Arterial Blood Carboxyhemoglobin 0.1 Arterial Blood Methemoglobin 0.4 Blood Gas A-a O2 Differential 37.8 H Oxyhemoglobin Percent 97.5 Total Hemoglobin 10.4 L Blood Gas Temperature 37.0 Blood Gas Actual Respiration Rate 12 Blood Gas Modality VENT - CPAP FiO2 30.0 Blood Gas Low PEEP Setting 5.0 Blood Gas Pressure Support 10 Blood Gas Notified Whom BT Blood Gas Notified Time 10/15/2016 12:16:18 PM Test 10/15/16 12:13 Bedside Glucose 256 H Medications Medications Current Medications Acetaminophen (Tylenol Liquid) 650 mg Q4H PRN NGT PAIN AND OR ELEVATED TEMP Last administered on 09/27/16 05:14; Admin Dose 650 MG; Start 09/21/16 at 02:00 Eye Lubricant (Artificial Tears Oph) 2 drop QID BOTH EYES Last administered on 10/15/16 09:17; Admin Dose 2 DROP; Start 09/21/16 at 09:00 Atorvastatin Calcium (Lipitor) 80 mg HS NGT Last administered on 10/14/16 20: 52; Admin Dose 80 MG; Start 09/22/16 at 21:00 Pantoprazole (Protonix Iv) 40 mg AM IV Last administered on 10/15/16 09:17; Admin Dose 40 MG; Start 09/26/16 at 09:00 Epoetin Raj (Epogen (Esrd)) 10,000 units TuThSa@17 SC Last administered on 10/12 17:56; Admin Dose 10,000 UNITS; Start 09/26/16 at 17:00 IV Flush (NS 10 ml) 10 ml PRN PRN IV IV PROTOCOL; Start 09/26/16 at 17:30 Aspirin (Aspirin) 81 mg DAILY NGT Last administered on 10/15/16 09:13; Admin Dose 81 MG; Start 09/27/16 at 09:00 Clopidogrel Bisulfate (plaVIX) 75 mg DAILY NGT Last administered on 10/15/16 09:13; Admin Dose 75 MG; Start 09/27/16 at 09:00 Morphine Sulfate (morphine) 2 mg Q4H PRN IV PAIN Last administered on 01:38; Admin Dose 2 MG; Start 09/28/16 at 16:00 Sodium Biphosphate/ Sodium Phosphate 133 ml 133 ml DAILY PRN AL CONSTIPATION Last administered on 10/09/16 00:50; Admin Dose 133 ML; Start 10/01/16 at 17:00 Norepinephrine 16 mg/Dextrose 500 ml @ 1.87 mls/hr TITRATE IV ; Start 10/04/16 at 07:00 Midazolam HCl 50 ml @ 1 mls/hr TITRATE IV Last administered on 10/07/16 09:47; Admin Dose 3 MLS/HR; Start 10/07/16 at 10:00 Dopamine HCl/ Dextrose 250 ml @ 7.5 mls/hr TITRATE IV Last administered on 10/07 11:00; Admin Dose 37.5 MLS/HR; Start 10/07/16 at 11:30 Lactobacillus Acidoph/Bulgaricus (Floranex) 1 tab TID PO Last administered on 09:12; Admin Dose 1 TAB; Start 10/09/16 at 21:00 Insulin Aspart (Novolog Insulin Pen) NOVOLOG *MODERATE* ALGORI... Q6 SC Last administered on 10/15/16 12:15; Admin Dose 6 UNIT; Start 10/10/16 at 00:00 Miscellaneous Information 1 ea NOTE XX ; Start 10/09/16 at 20:30 Glucose (Glutose) 15 gm Q15M PRN PO DECREASED GLUCOSE; Start 10/09/16 at 20:30 Glucose (Glutose) 22.5 gm Q15M PRN PO DECREASED GLUCOSE; Start 10/09/16 at 20:30 Dextrose (D50w Syringe) 25 ml Q15M PRN IV DECREASED GLUCOSE Last administered on 10/14/16 00:31; Admin Dose 25 ML; Start 10/09/16 at 20:30 Dextrose (D50w Syringe) 50 ml Q15M PRN IV DECREASED GLUCOSE Last administered on 10/11/16 17:37; Admin Dose 50 ML; Start 10/09/16 at 20:30 Glucagon (Glucagen) 1 mg Q15M PRN IM DECREASED GLUCOSE; Start 10/09/16 at 20:30 Glucose 15 gm 15 gm Q15M PRN BUCCAL DECREASED GLUCOSE; Start 10/09/16 at 20:30 Propofol (Diprivan) 100 ml @ 3 mls/hr Q12H IV Last administered on 10/13/16 19: 03; Admin Dose 3 MLS/HR; Start 10/11/16 at 09:30 Heparin Sodium (Porcine) 5000 unit 5,000 unit Q12 SC Last administered on 09:14; Admin Dose 5,000 UNIT; Start 10/11/16 at 21:00 Dextrose/Sodium Chloride (D5-1/4ns) 1,000 ml @ 60 mls/hr [id number] IV Last administered on 10/14/16 02:24; Admin Dose 60 MLS/HR; Start 10/11/16 at 18:30 Insulin Glargine (Lantus) 20 unit DAILY@08 SC Last administered on 10/15/16 09 :17; Admin Dose 20 UNIT; Start 10/15/16 at 08:00 Metoclopramide HCl (Reglan) 5 mg Q6 IV Last administered on 10/15/16 12:19; Admin Dose 5 MG; Start 10/14/16 at 12:00 ROSALINA SIMS NP Oct 15, 2016 12:27
--- NOTE | 2016-10-15 16:17 | PN ---
Date/Time of Note Date/Time of Note DATE: 10/15/16 TIME: 16:10 Assessment/Plan VTE Prophylaxis VTE Prophylaxis Intervention: other (asa, plavix) Lines/Catheters IV Catheter Type (from Nrsg): permacath Central line still needed: No Urinary Cath still in place: Yes Reason Cath still needed: terminal illness/intractable pain Assessment/Plan Assessment/Plan 1. cad/ htn/ pvd 2. arf--trach/ poor weaning trial 3. arf--dialysis qod/ anemia/ edema 4. dm 5. musc weak ---per cards ---per pulm, will cont weaning challenge qam ---per renal ---per ID ---phys rx to strengthen musc to wean off vent better ---cont all supportive cares for now Subjective 24 Hr Interval Summary Free Text/Dictation intubated, sesated Exam/Review of Systems Vital Signs Vitals Vital Signs Date Time Temp Pulse Resp B/P Pulse Ox O2 Delivery O2 Flow Rate FiO2 10/15/16 15:00 85 13 98/61 100 Mechanical Ventilator 10/15/16 13:45 30 10/15/16 12:00 97.4 10/11/16 12:30 2 Intake and Output 10/14/16 10/14/16 10/15/16 15:00 23:00 07:00 Intake Total 870.8 ml 331 ml 326 ml Output Total 2225 ml 8 ml 25 ml Balance -1354.2 ml 323 ml 301 ml Exam intubated awakable+ obese/ global lyphaedema+ rr méndez m+ dec bs bibasilar a few toes blue+ Results Result Diagram: 10/15/16 0500 10/15/16 0500 Results 24 hrs Laboratory Tests Test 10/14/16 18:32 10/15/16 00:42 10/15/16 05:00 10/15/16 05:11 Bedside Glucose 160 218 270 H White Blood Count 10.2 # Red Blood Count 2.76 L Hemoglobin 8.2 L Hematocrit 27.6 L Mean Corpuscular Volume 100.0 Mean Corpuscular Hemoglobin 29.7 Mean Corpuscular Hemoglobin Concent 29.7 L Red Cell Distribution Width 25.9 H Platelet Count 126 L Mean Platelet Volume 11.9 H Neutrophils % 84.9 H Lymphocytes % 7.8 L Monocytes % 6.2 Eosinophils % 0.2 Basophils % 0.2 Nucleated Red Blood Cells % 1.2 H Neutrophils # 8.6 H Lymphocytes # 0.8 Monocytes # 0.6 Eosinophils # 0.0 Basophils # 0.0 Nucleated Red Blood Cells # 0.1 H Sodium Level 135 Potassium Level 4.4 Chloride Level 102 Carbon Dioxide Level 26 Anion Gap 11 Blood Urea Nitrogen 81 H Creatinine 3.02 H Glucose Level 274 #H Calcium Level 7.7 L Phosphorus Level 6.1 H Magnesium Level 2.3 Total Bilirubin 1.0 Direct Bilirubin 0.40 H Indirect Bilirubin 0.6 Aspartate Amino Transf (AST/SGOT) 542 H Alanine Aminotransferase (ALT/SGPT) 208 H Alkaline Phosphatase 314 H Total Protein 5.5 L Albumin 2.5 L Globulin 3.00 Albumin/Globulin Ratio 0.83 Test 10/15/16 09:11 10/15/16 11:40 10/15/16 12:13 Bedside Glucose 291 H 256 H Blood Gas Specimen Source Blood arterial Arterial Blood Date Drawn 10/15/2016 12:05:40 PM Arterial Blood pH (Temp corrected) 7.393 Arterial Blood pCO2 (Temp correct) 41.6 Arterial Blood pO2 (Temp corrected) 127.2 H Arterial Blood HCO3 24.8 Arterial Blood Base Excess -0.1 Arterial Blood Oxygen Saturation 98.0 Raz Test ACCEPTAB Arterial Blood Gas Puncture Site Left Radial Arterial Blood Carboxyhemoglobin 0.1 Arterial Blood Methemoglobin 0.4 Blood Gas A-a O2 Differential 37.8 H Oxyhemoglobin Percent 97.5 Total Hemoglobin 10.4 L Blood Gas Temperature 37.0 Blood Gas Actual Respiration Rate 12 Blood Gas Modality VENT - CPAP FiO2 30.0 Blood Gas Low PEEP Setting 5.0 Blood Gas Pressure Support 10 Blood Gas Notified Whom BT Blood Gas Notified Time 10/15/2016 12:16:18 PM Medications Medications Current Medications Acetaminophen (Tylenol Liquid) 650 mg Q4H PRN NGT PAIN AND OR ELEVATED TEMP Last administered on 09/27/16 05:14; Admin Dose 650 MG; Start 09/21/16 at 02:00 Eye Lubricant (Artificial Tears Oph) 2 drop QID BOTH EYES Last administered on 10/15/16 14:00; Admin Dose 2 DROP; Start 09/21/16 at 09:00 Atorvastatin Calcium (Lipitor) 80 mg HS NGT Last administered on 10/14/16 20: 52; Admin Dose 80 MG; Start 09/22/16 at 21:00 Pantoprazole (Protonix Iv) 40 mg AM IV Last administered on 10/15/16 09:17; Admin Dose 40 MG; Start 09/26/16 at 09:00 Epoetin Raj (Epogen (Esrd)) 10,000 units TuThSa@17 SC Last administered on 10/12 17:56; Admin Dose 10,000 UNITS; Start 09/26/16 at 17:00 IV Flush (NS 10 ml) 10 ml PRN PRN IV IV PROTOCOL; Start 09/26/16 at 17:30 Aspirin (Aspirin) 81 mg DAILY NGT Last administered on 10/15/16 09:13; Admin Dose 81 MG; Start 09/27/16 at 09:00 Clopidogrel Bisulfate (plaVIX) 75 mg DAILY NGT Last administered on 10/15/16 09:13; Admin Dose 75 MG; Start 09/27/16 at 09:00 Morphine Sulfate (morphine) 2 mg Q4H PRN IV PAIN Last administered on 01:38; Admin Dose 2 MG; Start 09/28/16 at 16:00 Sodium Biphosphate/ Sodium Phosphate 133 ml [address] CONSTIPATION Last administered on 10/09/16 00:50; Admin Dose 133 ML; Start 10/01/16 at 17:00 Norepinephrine 16 mg/Dextrose 500 ml @ 1.87 mls/hr TITRATE IV ; Start 10/04/16 at 07:00 Midazolam HCl 50 ml @ 1 mls/hr TITRATE IV Last administered on 10/07/16 09:47; Admin Dose 3 MLS/HR; Start 10/07/16 at 10:00 Dopamine HCl/ Dextrose 250 ml @ 7.5 mls/hr TITRATE IV Last administered on 10/07 11:00; Admin Dose 37.5 MLS/HR; Start 10/07/16 at 11:30 Lactobacillus Acidoph/Bulgaricus (Floranex) 1 tab TID PO Last administered on 09:12; Admin Dose 1 TAB; Start 10/09/16 at 21:00 Insulin Aspart (Novolog Insulin Pen) NOVOLOG *MODERATE* ALGORI... Q6 SC Last administered on 10/15/16 12:15; Admin Dose 6 UNIT; Start 10/10/16 at 00:00 Miscellaneous Information 1 ea NOTE XX ; Start 10/09/16 at 20:30 Glucose (Glutose) 15 gm Q15M PRN PO DECREASED GLUCOSE; Start 10/09/16 at 20:30 Glucose (Glutose) 22.5 gm Q15M PRN PO DECREASED GLUCOSE; Start 10/09/16 at 20:30 Dextrose (D50w Syringe) 25 ml Q15M PRN IV DECREASED GLUCOSE Last administered on 10/14/16 00:31; Admin Dose 25 ML; Start 10/09/16 at 20:30 Dextrose (D50w Syringe) 50 ml Q15M PRN IV DECREASED GLUCOSE Last administered on 10/11/16 17:37; Admin Dose 50 ML; Start 10/09/16 at 20:30 Glucagon (Glucagen) 1 mg Q15M PRN IM DECREASED GLUCOSE; Start 10/09/16 at 20:30 Glucose 15 gm 15 gm Q15M PRN BUCCAL DECREASED GLUCOSE; Start 10/09/16 at 20:30 Propofol (Diprivan) 100 ml @ 3 mls/hr Q12H IV Last administered on 10/13/16 19: 03; Admin Dose 3 MLS/HR; Start 10/11/16 at 09:30 Heparin Sodium (Porcine) 5000 unit 5,000 unit Q12 SC Last administered on 09:14; Admin Dose 5,000 UNIT; Start 10/11/16 at 21:00 Dextrose/Sodium Chloride (D5-1/4ns) 1,000 ml @ 60 mls/hr [id number] IV Last administered on 10/14/16 02:24; Admin Dose 60 MLS/HR; Start 10/11/16 at 18:30 Insulin Glargine (Lantus) 20 unit DAILY@08 SC Last administered on 10/15/16 09 :17; Admin Dose 20 UNIT; Start 10/15/16 at 08:00 Metoclopramide HCl (Reglan) 5 mg Q6 IV Last administered on 10/15/16 12:19; Admin Dose 5 MG; Start 10/14/16 at 12:00 SHAMA LOPEZ MD Oct 15, 2016 16:17
--- NOTE | 2016-10-15 16:24 | PN ---
Date/Time of Note Date/Time of Note DATE: 10/14/16 TIME: 10:21 Assessment/Plan VTE Prophylaxis VTE Prophylaxis Intervention: other (asa, plavix) Lines/Catheters IV Catheter Type (from Nrsg): permacath Central line still needed: No Urinary Cath still in place: Yes Reason Cath still needed: terminal illness/intractable pain Assessment/Plan Assessment/Plan 1. cad/ bp better--off pressors 2. arf--trach/ much mucus 3. arf--dialysis/ edema/ anemia 4. dm 5. weak musc/ low calc ---per cards ---per pulm ---per renal ---per ID ---cont ivf/ ngt feed ---keep pt awake during daytime to wean off vent ---cont all supportive cares Subjective 24 Hr Interval Summary Free Text/Dictation spont move, intubated Exam/Review of Systems Vital Signs Vitals Vital Signs Date Time Temp Pulse Resp B/P Pulse Ox O2 Delivery O2 Flow Rate FiO2 10/15/16 15:00 85 13 98/61 100 Mechanical Ventilator 10/15/16 13:45 30 10/15/16 12:00 97.4 10/11/16 12:30 2 Intake and Output 10/14/16 10/14/16 10/15/16 15:00 23:00 07:00 Intake Total 870.8 ml 331 ml 326 ml Output Total 2225 ml 8 ml 25 ml Balance -1354.2 ml 323 ml 301 ml Exam intubated, failed wean challenge Results Result Diagram: 10/15/16 0500 10/15/16 0500 Results 24 hrs Laboratory Tests Test 10/14/16 18:32 10/15/16 00:42 10/15/16 05:00 10/15/16 05:11 Bedside Glucose 160 218 270 H White Blood Count 10.2 # Red Blood Count 2.76 L Hemoglobin 8.2 L Hematocrit 27.6 L Mean Corpuscular Volume 100.0 Mean Corpuscular Hemoglobin 29.7 Mean Corpuscular Hemoglobin Concent 29.7 L Red Cell Distribution Width 25.9 H Platelet Count 126 L Mean Platelet Volume 11.9 H Neutrophils % 84.9 H Lymphocytes % 7.8 L Monocytes % 6.2 Eosinophils % 0.2 Basophils % 0.2 Nucleated Red Blood Cells % 1.2 H Neutrophils # 8.6 H Lymphocytes # 0.8 Monocytes # 0.6 Eosinophils # 0.0 Basophils # 0.0 Nucleated Red Blood Cells # 0.1 H Sodium Level 135 Potassium Level 4.4 Chloride Level 102 Carbon Dioxide Level 26 Anion Gap 11 Blood Urea Nitrogen 81 H Creatinine 3.02 H Glucose Level 274 #H Calcium Level 7.7 L Phosphorus Level 6.1 H Magnesium Level 2.3 Total Bilirubin 1.0 Direct Bilirubin 0.40 H Indirect Bilirubin 0.6 Aspartate Amino Transf (AST/SGOT) 542 H Alanine Aminotransferase (ALT/SGPT) 208 H Alkaline Phosphatase 314 H Total Protein 5.5 L Albumin 2.5 L Globulin 3.00 Albumin/Globulin Ratio 0.83 Test 10/15/16 09:11 10/15/16 11:40 10/15/16 12:13 Bedside Glucose 291 H 256 H Blood Gas Specimen Source Blood arterial Arterial Blood Date Drawn 10/15/2016 12:05:40 PM Arterial Blood pH (Temp corrected) 7.393 Arterial Blood pCO2 (Temp correct) 41.6 Arterial Blood pO2 (Temp corrected) 127.2 H Arterial Blood HCO3 24.8 Arterial Blood Base Excess -0.1 Arterial Blood Oxygen Saturation 98.0 Raz Test ACCEPTAB Arterial Blood Gas Puncture Site Left Radial Arterial Blood Carboxyhemoglobin 0.1 Arterial Blood Methemoglobin 0.4 Blood Gas A-a O2 Differential 37.8 H Oxyhemoglobin Percent 97.5 Total Hemoglobin 10.4 L Blood Gas Temperature 37.0 Blood Gas Actual Respiration Rate 12 Blood Gas Modality VENT - CPAP FiO2 30.0 Blood Gas Low PEEP Setting 5.0 Blood Gas Pressure Support 10 Blood Gas Notified Whom BT Blood Gas Notified Time 10/15/2016 12:16:18 PM Medications Medications Current Medications Acetaminophen (Tylenol Liquid) 650 mg Q4H PRN NGT PAIN AND OR ELEVATED TEMP Last administered on 09/27/16 05:14; Admin Dose 650 MG; Start 09/21/16 at 02:00 Eye Lubricant (Artificial Tears Oph) 2 drop QID BOTH EYES Last administered on 10/15/16 14:00; Admin Dose 2 DROP; Start 09/21/16 at 09:00 Atorvastatin Calcium (Lipitor) 80 mg HS NGT Last administered on 10/14/16 20: 52; Admin Dose 80 MG; Start 09/22/16 at 21:00 Pantoprazole (Protonix Iv) 40 mg AM IV Last administered on 10/15/16 09:17; Admin Dose 40 MG; Start 09/26/16 at 09:00 Epoetin Raj (Epogen (Esrd)) 10,000 units TuThSa@17 SC Last administered on 10/12 17:56; Admin Dose 10,000 UNITS; Start 09/26/16 at 17:00 IV Flush (NS 10 ml) 10 ml PRN PRN IV IV PROTOCOL; Start 09/26/16 at 17:30 Aspirin (Aspirin) 81 mg DAILY NGT Last administered on 10/15/16 09:13; Admin Dose 81 MG; Start 09/27/16 at 09:00 Clopidogrel Bisulfate (plaVIX) 75 mg DAILY NGT Last administered on 10/15/16 09:13; Admin Dose 75 MG; Start 09/27/16 at 09:00 Morphine Sulfate (morphine) 2 mg Q4H PRN IV PAIN Last administered on 01:38; Admin Dose 2 MG; Start 09/28/16 at 16:00 Sodium Biphosphate/ Sodium Phosphate 133 ml 133 ml DAILY PRN [place] CONSTIPATION Last administered on 10/09/16 00:50; Admin Dose 133 ML; Start 10/01/16 at 17:00 Norepinephrine 16 mg/Dextrose 500 ml @ 1.87 mls/hr TITRATE IV ; Start 10/04/16 at 07:00 Midazolam HCl 50 ml @ 1 mls/hr TITRATE IV Last administered on 10/07/16 09:47; Admin Dose 3 MLS/HR; Start 10/07/16 at 10:00 Dopamine HCl/ Dextrose 250 ml @ 7.5 mls/hr TITRATE IV Last administered on 10/07 11:00; Admin Dose 37.5 MLS/HR; Start 10/07/16 at 11:30 Lactobacillus Acidoph/Bulgaricus (Floranex) 1 tab TID PO Last administered on 09:12; Admin Dose 1 TAB; Start 10/09/16 at 21:00 Insulin Aspart (Novolog Insulin Pen) NOVOLOG *MODERATE* ALGORI... Q6 SC Last administered on 10/15/16 12:15; Admin Dose 6 UNIT; Start 10/10/16 at 00:00 Miscellaneous Information 1 ea NOTE XX ; Start 10/09/16 at 20:30 Glucose (Glutose) 15 gm Q15M PRN PO DECREASED GLUCOSE; Start 10/09/16 at 20:30 Glucose (Glutose) 22.5 gm Q15M PRN PO DECREASED GLUCOSE; Start 10/09/16 at 20:30 Dextrose (D50w Syringe) 25 ml Q15M PRN IV DECREASED GLUCOSE Last administered on 10/14/16 00:31; Admin Dose 25 ML; Start 10/09/16 at 20:30 Dextrose (D50w Syringe) 50 ml Q15M PRN IV DECREASED GLUCOSE Last administered on 10/11/16 17:37; Admin Dose 50 ML; Start 10/09/16 at 20:30 Glucagon (Glucagen) 1 mg Q15M PRN IM DECREASED GLUCOSE; Start 10/09/16 at 20:30 Glucose 15 gm 15 gm Q15M PRN BUCCAL DECREASED GLUCOSE; Start 10/09/16 at 20:30 Propofol (Diprivan) 100 ml @ 3 mls/hr Q12H IV Last administered on 10/13/16 19: 03; Admin Dose 3 MLS/HR; Start 10/11/16 at 09:30 Heparin Sodium (Porcine) 5000 unit 5,000 unit Q12 SC Last administered on 09:14; Admin Dose 5,000 UNIT; Start 10/11/16 at 21:00 Dextrose/Sodium Chloride (D5-1/4ns) 1,000 ml @ 60 mls/hr [id number] IV Last administered on 10/14/16 02:24; Admin Dose 60 MLS/HR; Start 10/11/16 at 18:30 Insulin Glargine (Lantus) 20 unit DAILY@08 SC Last administered on 10/15/16 09 :17; Admin Dose 20 UNIT; Start 10/15/16 at 08:00 Metoclopramide HCl (Reglan) 5 mg Q6 IV Last administered on 10/15/16 12:19; Admin Dose 5 MG; Start 10/14/16 at 12:00 SHAMA LOPEZ MD Oct 15, 2016 16:24
--- NOTE | 2016-10-15 16:30 | PN ---
Date/Time of Note Date/Time of Note DATE: 10/11/16 TIME: 09:25 Assessment/Plan VTE Prophylaxis VTE Prophylaxis Intervention: other (asa, plavix) Lines/Catheters IV Catheter Type (from Nrsg): permacath Central line still needed: No Urinary Cath still in place: Yes Reason Cath still needed: terminal illness/intractable pain Assessment/Plan Assessment/Plan 1. cad--still uses pressor on/off due to low bp/ pvd 2. arf--cannot be weaned w / musc weak/ pneumonitis 3. arf--dialysis/ anemia 4. low calc 5. dm ---per cards ---per pulm, awaiting trach place ---per renal, awaiting permacath place ---per ID, cont ivf/ atbx ---replace all supplements ---cont all supportive cares for now Subjective 24 Hr Interval Summary Free Text/Dictation intubated, sedated Exam/Review of Systems Vital Signs Vitals Vital Signs Date Time Temp Pulse Resp B/P Pulse Ox O2 Delivery O2 Flow Rate FiO2 10/15/16 15:00 85 13 98/61 100 Mechanical Ventilator 10/15/16 13:45 30 10/15/16 12:00 97.4 10/11/16 12:30 2 Intake and Output 10/14/16 10/14/16 10/15/16 15:00 23:00 07:00 Intake Total 870.8 ml 331 ml 326 ml Output Total 2225 ml 8 ml 25 ml Balance -1354.2 ml 323 ml 301 ml Exam intubated, failed wean challenge dec bs bibasilar rr diast m+ global lymphaedema toes blue+ Results Result Diagram: 10/15/16 0500 10/15/16 0500 Results 24 hrs Laboratory Tests Test 10/14/16 18:32 10/15/16 00:42 10/15/16 05:00 10/15/16 05:11 Bedside Glucose 160 218 270 H White Blood Count 10.2 # Red Blood Count 2.76 L Hemoglobin 8.2 L Hematocrit 27.6 L Mean Corpuscular Volume 100.0 Mean Corpuscular Hemoglobin 29.7 Mean Corpuscular Hemoglobin Concent 29.7 L Red Cell Distribution Width 25.9 H Platelet Count 126 L Mean Platelet Volume 11.9 H Neutrophils % 84.9 H Lymphocytes % 7.8 L Monocytes % 6.2 Eosinophils % 0.2 Basophils % 0.2 Nucleated Red Blood Cells % 1.2 H Neutrophils # 8.6 H Lymphocytes # 0.8 Monocytes # 0.6 Eosinophils # 0.0 Basophils # 0.0 Nucleated Red Blood Cells # 0.1 H Sodium Level 135 Potassium Level 4.4 Chloride Level 102 Carbon Dioxide Level 26 Anion Gap 11 Blood Urea Nitrogen 81 H Creatinine 3.02 H Glucose Level 274 #H Calcium Level 7.7 L Phosphorus Level 6.1 H Magnesium Level 2.3 Total Bilirubin 1.0 Direct Bilirubin 0.40 H Indirect Bilirubin 0.6 Aspartate Amino Transf (AST/SGOT) 542 H Alanine Aminotransferase (ALT/SGPT) 208 H Alkaline Phosphatase 314 H Total Protein 5.5 L Albumin 2.5 L Globulin 3.00 Albumin/Globulin Ratio 0.83 Test 10/15/16 09:11 10/15/16 11:40 10/15/16 12:13 Bedside Glucose 291 H 256 H Blood Gas Specimen Source Blood arterial Arterial Blood Date Drawn 10/15/2016 12:05:40 PM Arterial Blood pH (Temp corrected) 7.393 Arterial Blood pCO2 (Temp correct) 41.6 Arterial Blood pO2 (Temp corrected) 127.2 H Arterial Blood HCO3 24.8 Arterial Blood Base Excess -0.1 Arterial Blood Oxygen Saturation 98.0 Raz Test ACCEPTAB Arterial Blood Gas Puncture Site Left Radial Arterial Blood Carboxyhemoglobin 0.1 Arterial Blood Methemoglobin 0.4 Blood Gas A-a O2 Differential 37.8 H Oxyhemoglobin Percent 97.5 Total Hemoglobin 10.4 L Blood Gas Temperature 37.0 Blood Gas Actual Respiration Rate 12 Blood Gas Modality VENT - CPAP FiO2 30.0 Blood Gas Low PEEP Setting 5.0 Blood Gas Pressure Support 10 Blood Gas Notified Whom BT Blood Gas Notified Time 10/15/2016 12:16:18 PM Medications Medications Current Medications Acetaminophen (Tylenol Liquid) 650 mg Q4H PRN NGT PAIN AND OR ELEVATED TEMP Last administered on 09/27/16 05:14; Admin Dose 650 MG; Start 09/21/16 at 02:00 Eye Lubricant (Artificial Tears Oph) 2 drop QID BOTH EYES Last administered on 10/15/16 14:00; Admin Dose 2 DROP; Start 09/21/16 at 09:00 Atorvastatin Calcium (Lipitor) 80 mg HS NGT Last administered on 10/14/16 20: 52; Admin Dose 80 MG; Start 09/22/16 at 21:00 Pantoprazole (Protonix Iv) 40 mg AM IV Last administered on 10/15/16 09:17; Admin Dose 40 MG; Start 09/26/16 at 09:00 Epoetin Raj (Epogen (Esrd)) 10,000 units TuThSa@17 SC Last administered on 10/12 17:56; Admin Dose 10,000 UNITS; Start 09/26/16 at 17:00 IV Flush (NS 10 ml) 10 ml PRN PRN IV IV PROTOCOL; Start 09/26/16 at 17:30 Aspirin (Aspirin) 81 mg DAILY NGT Last administered on 10/15/16 09:13; Admin Dose 81 MG; Start 09/27/16 at 09:00 Clopidogrel Bisulfate (plaVIX) 75 mg DAILY NGT Last administered on 10/15/16 09:13; Admin Dose 75 MG; Start 09/27/16 at 09:00 Morphine Sulfate (morphine) 2 mg Q4H PRN IV PAIN Last administered on 01:38; Admin Dose 2 MG; Start 09/28/16 at 16:00 Sodium Biphosphate/ Sodium Phosphate 133 ml 133 ml DAILY PRN [place] CONSTIPATION Last administered on 10/09/16 00:50; Admin Dose 133 ML; Start 10/01/16 at 17:00 Norepinephrine 16 mg/Dextrose 500 ml @ 1.87 mls/hr TITRATE IV ; Start 10/04/16 at 07:00 Midazolam HCl 50 ml @ 1 mls/hr TITRATE IV Last administered on 10/07/16 09:47; Admin Dose 3 MLS/HR; Start 10/07/16 at 10:00 Dopamine HCl/ Dextrose 250 ml @ 7.5 mls/hr TITRATE IV Last administered on 10/07 11:00; Admin Dose 37.5 MLS/HR; Start 10/07/16 at 11:30 Lactobacillus Acidoph/Bulgaricus (Floranex) 1 tab TID PO Last administered on 09:12; Admin Dose 1 TAB; Start 10/09/16 at 21:00 Insulin Aspart (Novolog Insulin Pen) NOVOLOG *MODERATE* ALGORI... Q6 SC Last administered on 10/15/16 12:15; Admin Dose 6 UNIT; Start 10/10/16 at 00:00 Miscellaneous Information 1 ea NOTE XX ; Start 10/09/16 at 20:30 Glucose (Glutose) 15 gm Q15M PRN PO DECREASED GLUCOSE; Start 10/09/16 at 20:30 Glucose (Glutose) 22.5 gm Q15M PRN PO DECREASED GLUCOSE; Start 10/09/16 at 20:30 Dextrose (D50w Syringe) 25 ml Q15M PRN IV DECREASED GLUCOSE Last administered on 10/14/16 00:31; Admin Dose 25 ML; Start 10/09/16 at 20:30 Dextrose (D50w Syringe) 50 ml Q15M PRN IV DECREASED GLUCOSE Last administered on 10/11/16 17:37; Admin Dose 50 ML; Start 10/09/16 at 20:30 Glucagon (Glucagen) 1 mg Q15M PRN IM DECREASED GLUCOSE; Start 10/09/16 at 20:30 Glucose 15 gm 15 gm Q15M PRN BUCCAL DECREASED GLUCOSE; Start 10/09/16 at 20:30 Propofol (Diprivan) 100 ml @ 3 mls/hr Q12H IV Last administered on 10/13/16 19: 03; Admin Dose 3 MLS/HR; Start 10/11/16 at 09:30 Heparin Sodium (Porcine) 5000 unit 5,000 unit Q12 SC Last administered on 09:14; Admin Dose 5,000 UNIT; Start 10/11/16 at 21:00 Dextrose/Sodium Chloride (D5-1/4ns) 1,000 ml @ 60 mls/hr [id number] IV Last administered on 10/14/16 02:24; Admin Dose 60 MLS/HR; Start 10/11/16 at 18:30 Insulin Glargine (Lantus) 20 unit DAILY@08 SC Last administered on 10/15/16 09 :17; Admin Dose 20 UNIT; Start 10/15/16 at 08:00 Metoclopramide HCl (Reglan) 5 mg Q6 IV Last administered on 10/15/16 12:19; Admin Dose 5 MG; Start 10/14/16 at 12:00 SHAMA LOPEZ MD Oct 15, 2016 16:30
[2016-10-15] MEDS: EPOETIN 10000 UNITS/1 ML INJ (ESRD) SC SCH (17:02)
[2016-10-15] MEDS: IPRATROPIUM (NEB) 0.5 MG/2.5 ML AMP HHN SCH (19:08)
[2016-10-15] MEDS: LEVALBUTEROL (NEB) 1.25 MG/0.5 ML AMP HHN SCH (19:08)
[2016-10-15] MEDS: ATORVASTATIN 80 MG TAB NGT SCH (20:56)
[2016-10-15] MEDS: CALCIUM CARBONATE 500 MG CHEW TAB NGT SCH (20:57)
[2016-10-15] MEDS: DEXTROSE 5%-0.45% NACL 1,000 ML IV SCH (21:01)
[2016-10-16] VITALS (24 sets, daily range): BP systolic 105–138; BP diastolic 52–74; PULSE 79–101; RESP 10–24
[2016-10-16] MEDS: LEVALBUTEROL (NEB) 1.25 MG/0.5 ML AMP HHN SCH ×4 (01:09→19:55)
[2016-10-16] MEDS: IPRATROPIUM (NEB) 0.5 MG/2.5 ML AMP HHN SCH ×4 (01:09→19:55)
[2016-10-16] MEDS: ACETYLCYSTEINE 20% 4 ML VIAL NEB SCH ×4 (01:09→19:55)
--- NOTE | 2016-10-16 02:16 | PN ---
Date/Time of Note Date/Time of Note DATE: 10/16/16 TIME: 02:10 Assessment/Plan VTE Prophylaxis VTE Prophylaxis Intervention: SCD's Lines/Catheters IV Catheter Type (from Nrs): Permacath Urinary Cath still in place: Yes Reason Cath still needed: urinary retention Assessment/Plan Chief Complaint/Hosp Course Patient admitted with stemi of inferior wall Problems: Assessment/Plan STEMI of inferior wall, post pci and placement of two drug-eluting stents to the RCA Respiratory failure, extubated yesterday after prolonged mechanical ventilation paroxysmal atrial fib present earlier in admission and a week and a half ago in the setting of dopamine, now maintaining nsr with pvc's Acute renal failure, ATN, requiring continued dialysis Blue toes bilaterally, most likely secondary to pressor use Recommendations: Continue aspirin and clopidogrel for stent patency Atorvastatin at high dose Patient still relatively hypotensive so no beta blockers given Dialysis as per nephrology Monitor pulmonary status Echo ordered to r/o embolic source for blue toes, though this is unlikely, patient has normal lvef and episodes of atrial fibrillation were brief Subjective 24 Hr Interval Summary Free Text/Dictation Patient extubated, minimally verbal Subjective hx not possible: pt non-verbal Exam/Review of Systems Vital Signs Vitals Vital Signs Date Time Temp Pulse Resp B/P Pulse Ox O2 Delivery O2 Flow Rate FiO2 10/16/16 01:11 82 15 100 Nasal Cannula 4.0 10/16/16 01:00 111/53 10/16/16 00:00 97.0 10/15/16 14:50 30 Intake and Output 10/15/16 10/15/16 10/16/16 15:00 23:00 07:00 Intake Total 565 ml 310 ml 100 ml Output Total 3045 ml 40 ml 10 ml Balance -2480 ml 270 ml 90 ml Exam Constitutional: alert Psych: nl mood/affect Head: normocephalic Eyes: EOMI Neck: No bruits, No jvd Respiratory: other (rhonchi heard throughout anterior lung [place]) Cardiovascular: regular rate and rhythm, No murmurs/extra sounds Gastrointestinal: soft Extremities: pitting pedal edema (severe bilaterally) Skin: nl turgor, other (blue toes bilaterally) Results Result Diagram: 10/15/16 0500 10/15/16 0500 Results 24 hrs Laboratory Tests Test 10/15/16 05:00 4/11/17 05:11 10/15/16 09:11 10/15/16 11:40 White Blood Count 10.2 # Red Blood Count 2.76 L Hemoglobin 8.2 L Hematocrit 27.6 L Mean Corpuscular Volume 100.0 Mean Corpuscular Hemoglobin 29.7 Mean Corpuscular Hemoglobin Concent 29.7 L Red Cell Distribution Width 25.9 H Platelet Count 126 L Mean Platelet Volume 11.9 H Neutrophils % 84.9 H Lymphocytes % 7.8 L Monocytes % 6.2 Eosinophils % 0.2 Basophils % 0.2 Nucleated Red Blood Cells % 1.2 H Neutrophils # 8.6 H Lymphocytes # 0.8 Monocytes # 0.6 Eosinophils # 0.0 Basophils # 0.0 Nucleated Red Blood Cells # 0.1 H Sodium Level 135 Potassium Level 4.4 Chloride Level 102 Carbon Dioxide Level 26 Anion Gap 11 Blood Urea Nitrogen 81 H Creatinine 3.02 H Glucose Level 274 #H Calcium Level 7.7 L Phosphorus Level 6.1 H Magnesium Level 2.3 Total Bilirubin 1.0 Direct Bilirubin 0.40 H Indirect Bilirubin 0.6 Aspartate Amino Transf (AST/SGOT) 542 H Alanine Aminotransferase (ALT/SGPT) 208 H Alkaline Phosphatase 314 H Total Protein 5.5 L Albumin 2.5 L Globulin 3.00 Albumin/Globulin Ratio 0.83 Bedside Glucose 270 H 291 H Blood Gas Specimen Source Blood arterial Arterial Blood Date Drawn 10/15/2016 12:05:40 PM Arterial Blood pH (Temp corrected) 7.393 Arterial Blood pCO2 (Temp correct) 41.6 Arterial Blood pO2 (Temp corrected) 127.2 H Arterial Blood HCO3 24.8 Arterial Blood Base Excess -0.1 Arterial Blood Oxygen Saturation 98.0 Raz Test ACCEPTAB Arterial Blood Gas Puncture Site Left Radial Arterial Blood Carboxyhemoglobin 0.1 Arterial Blood Methemoglobin 0.4 Blood Gas A-a O2 Differential 37.8 H Oxyhemoglobin Percent 97.5 Total Hemoglobin 10.4 L Blood Gas Temperature 37.0 Blood Gas Actual Respiration Rate 12 Blood Gas Modality VENT - CPAP FiO2 30.0 Blood Gas Low PEEP Setting 5.0 Blood Gas Pressure Support 10 Blood Gas Notified Whom BT Blood Gas Notified Time 10/15/2016 12:16:18 PM Test 10/15/16 12:13 10/15/16 16:59 10/15/16 23:45 Bedside Glucose 256 H 192 142 Medications Medications Current Medications Acetaminophen (Tylenol Liquid) 650 mg Q4H PRN NGT PAIN AND OR ELEVATED TEMP Last administered on 09/27/16 05:14; Admin Dose 650 MG; Start 09/21/16 at 02:00 Eye Lubricant (Artificial Tears Oph) 2 drop QID BOTH EYES Last administered on 10/15/16 21:01; Admin Dose 2 DROP; Start 09/21/16 at 09:00 Atorvastatin Calcium (Lipitor) 80 mg HS NGT Last administered on 10/14/16 20: 52; Admin Dose 80 MG; Start 09/22/16 at 21:00 Pantoprazole (Protonix Iv) 40 mg AM IV Last administered on 10/15/16 09:17; Admin Dose 40 MG; Start 09/26/16 at 09:00 Epoetin Raj (Epogen (Esrd)) 10,000 units TuThSa@17 SC Last administered on 17:02; Admin Dose 10,000 UNITS; Start 09/26/16 at 17:00 IV Flush (NS 10 ml) 10 ml PRN PRN IV IV PROTOCOL; Start 09/26/16 at 17:30 Aspirin (Aspirin) 81 mg DAILY NGT Last administered on 10/15/16 09:13; Admin Dose 81 MG; Start 09/27/16 at 09:00 Clopidogrel Bisulfate (plaVIX) 75 mg DAILY NGT Last administered on 10/15/16 09:13; Admin Dose 75 MG; Start 09/27/16 at 09:00 Morphine Sulfate (morphine) 2 mg Q4H PRN IV PAIN Last administered on 01:38; Admin Dose 2 MG; Start 09/28/16 at 16:00 Sodium Biphosphate/ Sodium Phosphate 133 ml 133 ml DAILY PRN [place] CONSTIPATION Last administered on 10/09/16 00:50; Admin Dose 133 ML; Start 10/01/16 at 17:00 Norepinephrine 16 mg/Dextrose 500 ml @ 1.87 mls/hr TITRATE IV ; Start 10/04/16 at 07:00 Midazolam HCl 50 ml @ 1 mls/hr TITRATE IV Last administered on 10/07/16 09:47; Admin Dose 3 MLS/HR; Start 10/07/16 at 10:00 Dopamine HCl/ Dextrose 250 ml @ 7.5 mls/hr TITRATE IV Last administered on 10/07 11:00; Admin Dose 37.5 MLS/HR; Start 10/07/16 at 11:30 Lactobacillus Acidoph/Bulgaricus (Floranex) 1 tab TID PO Last administered on 09:12; Admin Dose 1 TAB; Start 10/09/16 at 21:00 Insulin Aspart (Novolog Insulin Pen) NOVOLOG *MODERATE* ALGORI... Q6 SC Last administered on 10/15/16 23:47; Admin Dose 2 UNIT; Start 10/10/16 at 00:00 Miscellaneous Information 1 ea NOTE XX ; Start 10/09/16 at 20:30 Glucose (Glutose) 15 gm Q15M PRN PO DECREASED GLUCOSE; Start 10/09/16 at 20:30 Glucose (Glutose) 22.5 gm Q15M PRN PO DECREASED GLUCOSE; Start 10/09/16 at 20:30 Dextrose (D50w Syringe) 25 ml Q15M PRN IV DECREASED GLUCOSE Last administered on 10/14/16 00:31; Admin Dose 25 ML; Start 10/09/16 at 20:30 Dextrose (D50w Syringe) 50 ml Q15M PRN IV DECREASED GLUCOSE Last administered on 10/11/16 17:37; Admin Dose 50 ML; Start 10/09/16 at 20:30 Glucagon (Glucagen) 1 mg Q15M PRN IM DECREASED GLUCOSE; Start 10/09/16 at 20:30 Glucose 15 gm 15 gm Q15M PRN BUCCAL DECREASED GLUCOSE; Start 10/09/16 at 20:30 Propofol (Diprivan) 100 ml @ 3 mls/hr Q12H IV Last administered on 10/13/16 19: 03; Admin Dose 3 MLS/HR; Start 10/11/16 at 09:30 Heparin Sodium (Porcine) (Heparin (5000 Units/0.5 ml)) 5,000 unit Q12 SC Last administered on 10/15/16 21:04; Admin Dose 5,000 UNIT; Start 10/11/16 at 21:00 Insulin Glargine (Lantus) 20 unit DAILY@08 SC Last administered on 10/15/16 09 :17; Admin Dose 20 UNIT; Start 10/15/16 at 08:00 Metoclopramide HCl (Reglan) 5 mg Q6 IV Last administered on 10/15/16 23:46; Admin Dose 5 MG; Start 10/14/16 at 12:00 Calcium Carbonate 500 mg 500 mg TID NGT ; Start 10/15/16 at 21:00 Dextrose/Sodium Chloride (D5-1/2ns) 1,000 ml @ 50 mls/hr Q20H IV Last administered on 10/15/16 21:01; Admin Dose 50 MLS/HR; Start 10/15/16 at 20:30 BENJAMIN OSEGUERA Oct 16, 2016 02:15
[2016-10-16] MEDS: morphine 2 MG INJ IV PRN ×2 (04:51→14:34)
[2016-10-16 04:52] LABS: ADD SCAN DIFF NO
[2016-10-16 05:01] LABS: ABNORMAL IP MESSAGE 1; BASOPHILS % 0.1 % (0.0-2.0); EOSINOPHILS % 0.1 % (0.0-7.0); HEMATOCRIT 32.6 % (37.0-47.0); HEMOGLOBIN 9.3 g/dl (12.0-16.0); LYMPHOCYTES # 0.5 10^3/ul (0.8-2.9); MEAN CORPUSCULAR HEMOGLOBIN 28.9 pg (29.0-33.0); MEAN CORPUSCULAR HGB CONC 28.5 g/dl (32.0-37.0); MEAN CORPUSCULAR VOLUME 101.2 fl (82.0-101.0); MEAN PLATELET VOLUME 11.2 fl (7.4-10.4); MONOCYTE # 0.7 10^3/ul (0.3-0.9); MONOCYTES % 5.6 % (0.0-11.0); NEUTROPHIL # 11.1 10^3/ul (1.6-7.5); NEUTROPHILS % 89.6 % (39.0-77.0); NUCLEATED RED BLOOD CELLS # 0.1 10^3/ul (0.0-0.0); NUCLEATED RED BLOOD CELLS% 0.6 /100WBC (0.0-0.0); PLATELET COUNT 145 10^3/UL (140-415); RED BLOOD COUNT 3.22 10^6/ul (4.20-5.40); RED CELL DISTRIBUTION WIDTH 26.3 % (11.5-14.5); WHITE BLOOD COUNT 12.3 10^3/ul (4.8-10.8)
[2016-10-16 05:31] LABS: ALBUMIN 2.6 g/dl (3.3-4.9)
[2016-10-16 05:33] LABS: BILIRUBIN,INDIRECT 0.5 mg/dl (0-1.1); BILIRUBIN,TOTAL 0.5 mg/dl (0.2-1.3)
[2016-10-16 05:34] LABS: ALBUMIN/GLOBULIN RATIO 0.74; CALCIUM 8.6 mg/dl (8.4-10.2); TOTAL PROTEIN 6.1 g/dl (6.1-8.1)
[2016-10-16 05:46] LABS: CREATININE 2.23 mg/dl (0.44-1.00)
[2016-10-16] MEDS: INSULIN ASPART [NOVOLOG] 3 ML PEN SC SCH ×4 (06:00→21:10)
[2016-10-16] MEDS: METOCLOPRAMIDE 10 MG INJ IV SCH ×3 (06:22→17:55)
--- NOTE | 2016-10-16 08:26 | CONS ---
Date/Time of Note Date/Time of Note DATE: 10/16/16 TIME: 08:21 Assessment/Plan Assessment/Plan Chief Complaint/Hosp Course 1. Acute Renal Failure due to ATN , oliguric . Her BUN is lower . I ordered 2 hours of DUF yesterday , 2.5 liters of fluid removed . and hemodialysis ordered for today if needed . I would recommend we continue dialysis every other day. 2. ALOC , she is improved 3. liver enzyme elevation due to anoxia , enzymes are decreasing . 4. hypotension , she is now normotensive off pressors. 5. hypocalcemia/hypoalbuminemia , calcium is higher 6. anemia , she has not had any recent GI bleeding . 7. peripheral vascular disease . 8. respiratory failure , off ventilator . Problems: Consultation Date/Type/Reason Admit Date/Time Sep 20, 2016 at 19:21 Initial Consult Date 09/23/16 Type of Consultation: id Referring Provider: ZANDRA ROBISON MD, [facility] 24 HR Interval Summary Free Text/Dictation She is in the ICU . She was extubated yesterday , She is alert and talking . Constitutional: improved Exam/Review of Systems Vital Signs Vitals Vital Signs Date Time Temp Pulse Resp B/P Pulse Ox O2 Delivery O2 Flow Rate FiO2 10/16/16 07:29 83 17 100 Nasal Cannula 4.0 10/16/16 07:00 120/53 10/16/16 04:00 97.8 10/15/16 14:50 30 Intake and Output 10/15/16 10/15/16 10/16/16 15:00 23:00 07:00 Intake Total 565 ml 310 ml 350 ml Output Total 3045 ml 40 ml 30 ml Balance -2480 ml 270 ml 320 ml Exam Constitutional: alert, obese, oriented Respiratory: congested cough Cardiovascular: regular rate and rhythm Gastrointestinal: non-tender, soft Extremities: edema Results Result Diagram: 10/16/16 0400 10/16/16 0400 Results 24 hrs Laboratory Tests Test 10/15/16 09:11 10/15/16 11:40 10/15/16 12:13 10/15/16 16:59 Bedside Glucose 291 H 256 H 192 Blood Gas Specimen Source Blood arterial Arterial Blood Date Drawn 10/15/2016 12:05:40 PM Arterial Blood pH (Temp corrected) 7.393 Arterial Blood pCO2 (Temp correct) 41.6 Arterial Blood pO2 (Temp corrected) 127.2 H Arterial Blood HCO3 24.8 Arterial Blood Base Excess -0.1 Arterial Blood Oxygen Saturation 98.0 Raz Test ACCEPTAB Arterial Blood Gas Puncture Site Left Radial Arterial Blood Carboxyhemoglobin 0.1 Arterial Blood Methemoglobin 0.4 Blood Gas A-a O2 Differential 37.8 H Oxyhemoglobin Percent 97.5 Total Hemoglobin 10.4 L Blood Gas Temperature 37.0 Blood Gas Actual Respiration Rate 12 Blood Gas Modality VENT - CPAP FiO2 30.0 Blood Gas Low PEEP Setting 5.0 Blood Gas Pressure Support 10 Blood Gas Notified Whom BT Blood Gas Notified Time 10/15/2016 12:16:18 PM Test 10/15/16 23:45 10/16/16 04:00 10/16/16 05:59 Bedside Glucose 142 132 White Blood Count 12.3 #H Red Blood Count 3.22 L Hemoglobin 9.3 L Hematocrit 32.6 L Mean Corpuscular Volume 101.2 H Mean Corpuscular Hemoglobin 28.9 L Mean Corpuscular Hemoglobin Concent 28.5 L Red Cell Distribution Width 26.3 H Platelet Count 145 Mean Platelet Volume 11.2 H Neutrophils % 89.6 H Lymphocytes % 4.0 L Monocytes % 5.6 Eosinophils % 0.1 Basophils % 0.1 Nucleated Red Blood Cells % 0.6 H Neutrophils # 11.1 H Lymphocytes # 0.5 L Monocytes # 0.7 Eosinophils # 0.0 Basophils # 0.0 Nucleated Red Blood Cells # 0.1 H Sodium Level 141 Potassium Level 4.0 Chloride Level 103 Carbon Dioxide Level 26 Anion Gap 16 Blood Urea Nitrogen 63 H Creatinine 2.23 H Glucose Level 167 # Calcium Level 8.6 Total Bilirubin 0.5 Direct Bilirubin 0.00 # Indirect Bilirubin 0.5 Aspartate Amino Transf (AST/SGOT) 484 H Alanine Aminotransferase (ALT/SGPT) 223 H Alkaline Phosphatase 261 H Total Protein 6.1 Albumin 2.6 L Globulin 3.50 H Albumin/Globulin Ratio 0.74 Medications Medications Current Medications Acetaminophen (Tylenol Liquid) 650 mg Q4H PRN NGT PAIN AND OR ELEVATED TEMP Last administered on 09/27/16 05:14; Admin Dose 650 MG; Start 09/21/16 at 02:00 Eye Lubricant (Artificial Tears Oph) 2 drop QID BOTH EYES Last administered on 10/15/16 21:01; Admin Dose 2 DROP; Start 09/21/16 at 09:00 Atorvastatin Calcium (Lipitor) 80 mg HS NGT Last administered on 10/14/16 20: 52; Admin Dose 80 MG; Start 09/22/16 at 21:00 Pantoprazole (Protonix Iv) 40 mg AM IV Last administered on 10/15/16 09:17; Admin Dose 40 MG; Start 09/26/16 at 09:00 Epoetin Raj (Epogen (Esrd)) 10,000 units TuThSa@17 SC Last administered on 17:02; Admin Dose 10,000 UNITS; Start 09/26/16 at 17:00 IV Flush (NS 10 ml) 10 ml PRN PRN IV IV PROTOCOL; Start 09/26/16 at 17:30 Aspirin (Aspirin) 81 mg DAILY NGT Last administered on 10/15/16 09:13; Admin Dose 81 MG; Start 09/27/16 at 09:00 Clopidogrel Bisulfate (plaVIX) 75 mg DAILY NGT Last administered on 10/15/16 09:13; Admin Dose 75 MG; Start 09/27/16 at 09:00 Morphine Sulfate (morphine) 2 mg Q4H PRN IV PAIN Last administered on 04:51; Admin Dose 2 MG; Start 09/28/16 at 16:00 Sodium Biphosphate/ Sodium Phosphate 133 ml 133 ml DAILY PRN [place] CONSTIPATION Last administered on 10/09/16 00:50; Admin Dose 133 ML; Start 10/01/16 at 17:00 Norepinephrine 16 mg/Dextrose 500 ml @ 1.87 mls/hr TITRATE IV ; Start 10/04/16 at 07:00 Midazolam HCl 50 ml @ 1 mls/hr TITRATE IV Last administered on 10/07/16 09:47; Admin Dose 3 MLS/HR; Start 10/07/16 at 10:00 Dopamine HCl/ Dextrose 250 ml @ 7.5 mls/hr TITRATE IV Last administered on 10/07 11:00; Admin Dose 37.5 MLS/HR; Start 10/07/16 at 11:30 Lactobacillus Acidoph/Bulgaricus (Floranex) 1 tab TID PO Last administered on 09:12; Admin Dose 1 TAB; Start 10/09/16 at 21:00 Insulin Aspart (Novolog Insulin Pen) NOVOLOG *MODERATE* ALGORI... Q6 SC Last administered on 10/15/16 23:47; Admin Dose 2 UNIT; Start 10/10/16 at 00:00 Miscellaneous Information 1 ea NOTE XX ; Start 10/09/16 at 20:30 Glucose (Glutose) 15 gm Q15M PRN PO DECREASED GLUCOSE; Start 10/09/16 at 20:30 Glucose (Glutose) 22.5 gm Q15M PRN PO DECREASED GLUCOSE; Start 10/09/16 at 20:30 Dextrose (D50w Syringe) 25 ml Q15M PRN IV DECREASED GLUCOSE Last administered on 10/14/16 00:31; Admin Dose 25 ML; Start 10/09/16 at 20:30 Dextrose (D50w Syringe) 50 ml Q15M PRN IV DECREASED GLUCOSE Last administered on 10/11/16 17:37; Admin Dose 50 ML; Start 10/09/16 at 20:30 Glucagon (Glucagen) 1 mg Q15M PRN IM DECREASED GLUCOSE; Start 10/09/16 at 20:30 Glucose 15 gm 15 gm Q15M PRN BUCCAL DECREASED GLUCOSE; Start 10/09/16 at 20:30 Propofol (Diprivan) 100 ml @ 3 mls/hr Q12H IV Last administered on 10/13/16 19: 03; Admin Dose 3 MLS/HR; Start 10/11/16 at 09:30 Heparin Sodium (Porcine) (Heparin (5000 Units/0.5 ml)) 5,000 unit Q12 SC Last administered on 10/15/16 21:04; Admin Dose 5,000 UNIT; Start 10/11/16 at 21:00 Insulin Glargine (Lantus) 20 unit DAILY@08 SC Last administered on 10/15/16 09 :17; Admin Dose 20 UNIT; Start 10/15/16 at 08:00 Metoclopramide HCl (Reglan) 5 mg Q6 IV Last administered on 10/16/16 06:22; Admin Dose 5 MG; Start 10/14/16 at 12:00 Calcium Carbonate 500 mg 500 mg TID NGT ; Start 10/15/16 at 21:00 Dextrose/Sodium Chloride (D5-1/2ns) 1,000 ml @ 50 mls/hr Q20H IV Last administered on 10/15/16t 21:01; Admin Dose 50 MLS/HR; Start 10/15/16 at 20:30 Metoprolol Tartrate (Lopressor) 12.5 mg BID PO ; Start 10/16/16 at 09:00 DAMIR MARTINEZ MD Oct 16, 2016 08:26
[2016-10-16] MEDS: ARTIFICIAL TEARS 15 ML OPH BOTH EYES SCH ×4 (08:33→21:07)
[2016-10-16] MEDS: PANTOPRAZOLE 40 MG INJ IV SCH (08:33)
[2016-10-16] MEDS: CLOPIDOGREL 75 MG TAB NGT SCH ×2 (08:34→09:00)
[2016-10-16] MEDS: LACTOBACILLUS CHEW TAB PO SCH ×4 (08:34→21:00)
[2016-10-16] MEDS: ASPIRIN 81 MG TAB NGT SCH ×2 (08:34→09:00)
[2016-10-16] MEDS: CALCIUM CARBONATE 500 MG CHEW TAB NGT SCH ×4 (08:34→21:00)
[2016-10-16] MEDS: HEPARIN 5,000 UNIT/0.5 ML VIAL SC SCH ×2 (08:35→21:11)
[2016-10-16] MEDS: INSULIN GLARGINE [LANtus] 3 ML PEN SC SCH (08:36)
[2016-10-16] MEDS: METOPROLOL 25 MG TAB PO SCH ×2 (09:00→21:00)
--- NOTE | 2016-10-16 09:27 | RADRPT ---
PROCEDURE: XR Chest AP portable CLINICAL INDICATION: Cough TECHNIQUE: An AP portable radiograph of the chest was submitted. COMPARISON: 10/08/2016 FINDINGS: Support Hardware: Since the previous study, a double-lumen right jugular dialysis catheter has been placed with the tip projecting to the atrial caval junction. The left upper extremity PICC catheter is stable in positioning. Cardiovascular: The heart remains mildly enlarged although pulmonary vasculature is upper normal. Lung Renee: There is increasing opacity of the right mid and lower lung zone compatible with worsen ing infiltrate. A patch of infiltrate has developed at the left lung base. Pleural Spaces: There now appears to be a small moderate right pleural fluid accumulation. No pneum othorax is evident. Osseous Structures: Degenerative spine changes are again seen diffusely. Soft Tissues: The soft tissues appear generous. IMPRESSION: 1. Interval placement of a right jugular dialysis catheter with the tip at the atrial caval junctio n. The left upper extremity PICC catheter is stable in positioning. 2. Persistent mild cardiomegaly without CHF. 3. Development of a small to moderate right pleural fluid accumulation with worsening right lung in filtrate and development of a small patch of infiltrate at the left lung base. Physician Rik Date Time Electronically viewed and signed by Physician Rik on 10/16/2016 09:26 /
[2016-10-16] MEDS: PROPOFOL 100 ML IV SCH ×2 (09:30→21:11)
--- NOTE | 2016-10-16 11:19 | PN ---
DATE: 10/16/2016 SUBJECTIVE: [place] [facility] [place]. She is extubated right now and stable. PHYSICAL EXAMINATION: VITAL SIGNS: Blood pressure 119/53, pulse of 82 and regular, respirations of 13, saturation off on 4 liters FIO2. LABORATORY DATA: Have been reviewed. ASSESSMENT AND PLAN: 1. Status post ST elevation myocardial infarction of inferior wall, status post PCI placement of 2 drug-eluting stents to the RCA. 2. Respiratory failure. Extubated at this time. 3. History of paroxysmal atrial fibrillation during this hospitalization. 4. Acute renal failure, improving. I have spoken to Ms. Danielle in detail today and explained the goals of care and to be eventually moved out of the intensive care unit and participate in rehabilitation therapy. Although she is not conversant at this time she is fully neurologically intact. Social history, family history, review of systems, will not be reviewed again. Her understanding of her condition at this time is full clear. Her hopes, quality of life now and in the future have been expressed by her family members. There is obviously some trepidation on her part, she appears to b e pensive and concerned about her ongoing level of care. There are no cultural issues, caregiver is sues. Again goals of care have been discussed. Prognosis is very good. ____ at this time is greater than 60. RECOMMENDATIONS: To continue with supportive care, from a palliative care standpoint there are no pa in management ethical issues. It is not appropriate to address the code status at this time. Dictated By: DYLAN GIBBONS MD, LP/JERROD Conf#: [id number] DID#: [id number]
--- NOTE | 2016-10-16 11:47 | CONS ---
Date/Time of Note Date/Time of Note DATE: 10/16/16 TIME: 11:44 Assessment/Plan Assessment/Plan Additional Assessment/Plan Chest x-ray was reviewed from today which is showing a right pleural effusion. Next Assessment recommendations; next 1. Patient admitted for acute OH leading to respiratory failure and acute renal failure. 2. Patient failed extubation trial had to be intubated but has been no extubated again yesterday afternoon with excellent overall clinical status. 3. 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 4. Ongoing need for hemodialysis. 5. Generalized deconditioning. Continue current supportive care. Patient can be transferred to the medical floor. Consultation Date/Type/Reason Admit Date/Time Sep 20, 2016 at 19:21 Initial Consult Date 09/23/16 Type of Consultation: Pulmonary/critical care Referring Provider: ZANDRA ROBISON MD, [facility] 24 HR Interval Summary Free Text/Dictation Patient condition is stable. She was successfully extubated yesterday afternoon. Denies any shortness of breath, chest congestion sputum production. General exam; elderly lady, awake alert currently in no distress. Able to talk. Exam/Review of Systems Vital Signs Vitals Vital Signs Date Time Temp Pulse Resp B/P Pulse Ox O2 Delivery O2 Flow Rate FiO2 10/16/16 09:00 82 13 119/53 100 Nasal Cannula 10/16/16 08:00 96.7 10/16/16 07:29 4.0 10/15/16 14:50 30 Intake and Output 10/15/16 10/15/16 10/16/16 15:00 23:00 07:00 Intake Total 565 ml 310 ml 350 ml Output Total 3045 ml 40 ml 30 ml Balance -2480 ml 270 ml 320 ml Exam HEENT exam; supple neck, no JVD. No lymphadenopathy. Midline trachea. Patient has fair dentition. Pupils are midsize and reactive to light. Chest examination; clear to auscultation. S1-S2 audible, no murmurs. Regular rhythm. Abdomen examination; soft, nondistended. Nontender. Bowel sounds audible. No organomegaly. Extremity exam is; 2+ anasarca. Patient has a multiple ecchymosis involving all 4 extremities. There is gangrene involving toes bilaterally. Dorsalis pedis pulses are 2+ bilaterally. 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 Results Result Diagram: 10/16/16 0400 10/16/16 0400 Results 24 hrs Laboratory Tests Test 10/15/16 12:13 10/15/16 16:59 10/15/16 23:45 10/16/16 04:00 Bedside Glucose 256 H 192 142 White Blood Count 12.3 #H Red Blood Count 3.22 L Hemoglobin 9.3 L Hematocrit 32.6 L Mean Corpuscular Volume 101.2 H Mean Corpuscular Hemoglobin 28.9 L Mean Corpuscular Hemoglobin Concent 28.5 L Red Cell Distribution Width 26.3 H Platelet Count 145 Mean Platelet Volume 11.2 H Neutrophils % 89.6 H Lymphocytes % 4.0 L Monocytes % 5.6 Eosinophils % 0.1 Basophils % 0.1 Nucleated Red Blood Cells % 0.6 H Neutrophils # 11.1 H Lymphocytes # 0.5 L Monocytes # 0.7 Eosinophils # 0.0 Basophils # 0.0 Nucleated Red Blood Cells # 0.1 H Sodium Level 141 Potassium Level 4.0 Chloride Level 103 Carbon Dioxide Level 26 Anion Gap 16 Blood Urea Nitrogen 63 H Creatinine 2.23 H Glucose Level 167 # Calcium Level 8.6 Total Bilirubin 0.5 Direct Bilirubin 0.00 # Indirect Bilirubin 0.5 Aspartate Amino Transf (AST/SGOT) 484 H Alanine Aminotransferase (ALT/SGPT) 223 H Alkaline Phosphatase 261 H Total Protein 6.1 Albumin 2.6 L Globulin 3.50 H Albumin/Globulin Ratio 0.74 Test 10/16/16 05:59 10/16/16 08:33 Bedside Glucose 132 185 Medications Medications Current Medications Acetaminophen (Tylenol Liquid) 650 mg Q4H PRN NGT PAIN AND OR ELEVATED TEMP Last administered on 09/27/16 05:14; Admin Dose 650 MG; Start 09/21/16 at 02:00 Eye Lubricant (Artificial Tears Oph) 2 drop QID BOTH EYES Last administered on 10/16/16 08:33; Admin Dose 2 DROP; Start 09/21/16 at 09:00 Atorvastatin Calcium (Lipitor) 80 mg HS NGT Last administered on 10/14/16 20: 52; Admin Dose 80 MG; Start 09/22/16 at 21:00 Pantoprazole (Protonix Iv) 40 mg AM IV Last administered on 10/16/16 08:33; Admin Dose 40 MG; Start 09/26/16 at 09:00 Epoetin Raj (Epogen (Esrd)) 10,000 units TuThSa@17 SC Last administered on 17:02; Admin Dose 10,000 UNITS; Start 09/26/16 at 17:00 IV Flush (NS 10 ml) 10 ml PRN PRN IV IV PROTOCOL; Start 09/26/16 at 17:30 Aspirin (Aspirin) 81 mg DAILY NGT Last administered on 10/15/16 09:13; Admin Dose 81 MG; Start 09/27/16 at 09:00 Clopidogrel Bisulfate (plaVIX) 75 mg DAILY NGT Last administered on 10/15/16 09:13; Admin Dose 75 MG; Start 09/27/16 at 09:00 Morphine Sulfate (morphine) 2 mg Q4H PRN IV PAIN Last administered on 04:51; Admin Dose 2 MG; Start 09/28/16 at 16:00 Sodium Biphosphate/ Sodium Phosphate 133 ml 133 ml DAILY PRN [place] CONSTIPATION Last administered on 10/09/16 00:50; Admin Dose 133 ML; Start 10/01/16 at 17:00 Norepinephrine 16 mg/Dextrose 500 ml @ 1.87 mls/hr TITRATE IV ; Start 10/04/16 at 07:00 Midazolam HCl 50 ml @ 1 mls/hr TITRATE IV Last administered on 10/07/16 09:47; Admin Dose 3 MLS/HR; Start 10/07/16 at 10:00 Dopamine HCl/ Dextrose 250 ml @ 7.5 mls/hr TITRATE IV Last administered on 10/07 11:00; Admin Dose 37.5 MLS/HR; Start 10/07/16 at 11:30 Lactobacillus Acidoph/Bulgaricus (Floranex) 1 tab TID PO Last administered on 09:12; Admin Dose 1 TAB; Start 10/09/16 at 21:00 Miscellaneous Information 1 ea NOTE XX ; Start 10/09/16 at 20:30 Glucose (Glutose) 15 gm Q15M PRN PO DECREASED GLUCOSE; Start 10/09/16 at 20:30 Glucose (Glutose) 22.5 gm Q15M PRN PO DECREASED GLUCOSE; Start 10/09/16 at 20:30 Dextrose (D50w Syringe) 25 ml Q15M PRN IV DECREASED GLUCOSE Last administered on 10/14/16 00:31; Admin Dose 25 ML; Start 10/09/16 at 20:30 Dextrose (D50w Syringe) 50 ml Q15M PRN IV DECREASED GLUCOSE Last administered on 10/11/16 17:37; Admin Dose 50 ML; Start 10/09/16 at 20:30 Glucagon (Glucagen) 1 mg Q15M PRN IM DECREASED GLUCOSE; Start 10/09/16 at 20:30 Glucose 15 gm 15 gm Q15M PRN BUCCAL DECREASED GLUCOSE; Start 10/09/16 at 20:30 Propofol (Diprivan) 100 ml @ 3 mls/hr Q12H IV Last administered on 10/13/16 19: 03; Admin Dose 3 MLS/HR; Start 10/11/16 at 09:30 Heparin Sodium (Porcine) (Heparin (5000 Units/0.5 ml)) 5,000 unit Q12 SC Last administered on 10/16/16 08:35; Admin Dose 5,000 UNIT; Start 10/11/16 at 21:00 Metoclopramide HCl (Reglan) 5 mg Q6 IV Last administered on 10/16/16 06:22; Admin Dose 5 MG; Start 10/14/16 at 12:00 Calcium Carbonate 500 mg 500 mg TID NGT ; Start 10/15/16 at 21:00 Dextrose/Sodium Chloride (D5-1/2ns) 1,000 ml @ 50 mls/hr Q20H IV Last administered on 10/15/16 21:01; Admin Dose 50 MLS/HR; Start 10/15/16 at 20:30 Metoprolol Tartrate (Lopressor) 12.5 mg BID PO ; Start 10/16/16 at 09:00 Insulin Glargine (Lantus) 26 unit DAILY@08 SC ; Start 10/17/16 at 08:00 Insulin Aspart (Novolog Insulin Pen) NOVOLOG *MODERATE* ALGORI... Q4 SC ; Start 10/16/16 at 13:00 ADIS CAMACHO Oct 16, 2016 11:47
--- NOTE | 2016-10-16 14:42 | CONS ---
Date/Time of Note Date/Time of Note DATE: 10/16/16 TIME: 14:40 Assessment/Plan Assessment/Plan Chief Complaint/Hosp Course SUBJECTIVE: No acute changes overnight. The patient is awake, looks comfortable, no fevers. INDWELLINGS: right subclavian Perm-A-Cath placed on 10/11/2016, left upper extremity PICC line, Rivas. PHYSICAL EXAMINATION: GENERAL: This is a morbidly obese elderly woman who is in no distress. HEENT: Head atraumatic, normocephalic. Sclerae anicteric. Buccal mucosa dry. NECK: Supple, trachea midline. CHEST: Rise symmetrical. Breath sounds diminished to bases. HEART: S1, S2. ABDOMEN: Soft, bowel tones present. EXTREMITIES: With cyanotic toes. ASSESSMENT: 1. Status post septic shock. 2. Status post healthcare-associated pneumonia. 3. Acute renal failure, on hemodialysis. 4. Erica albicans urinary tract infection==> treated. 5. Acute myocardial infarction, status post cardiac arrest, status post PTCA. 6. Morbid obesity. PLAN: Stable post extubation, off antibiotics. Continue present care, aspiration precautions, lópez cx prn. DW staff Problems: Consultation Date/Type/Reason Admit Date/Time Sep 20, 2016 at 19:21 Initial Consult Date 09/23/16 Type of Consultation: id Referring Provider: ZANDRA ROBISON MD, [facility] Exam/Review of Systems Vital Signs Vitals Vital Signs Date Time Temp Pulse Resp B/P Pulse Ox O2 Delivery O2 Flow Rate FiO2 10/16/16 12:00 Nasal Cannula 4.0 10/16/16 12:00 97.0 86 24 115/74 100 10/15/16 14:50 30 Intake and Output 10/15/16 10/15/16 10/16/16 15:00 23:00 07:00 Intake Total 565 ml 310 ml 350 ml Output Total 3045 ml 40 ml 40 ml Balance -2480 ml 270 ml 310 ml Results Result Diagram: 10/16/16 0400 10/16/16 0400 Results 24 hrs Laboratory Tests Test 10/15/16 16:59 10/15/16 23:45 10/16/16 04:00 10/16/16 05:59 Bedside Glucose 192 142 132 White Blood Count 12.3 #H Red Blood Count 3.22 L Hemoglobin 9.3 L Hematocrit 32.6 L Mean Corpuscular Volume 101.2 H Mean Corpuscular Hemoglobin 28.9 L Mean Corpuscular Hemoglobin Concent 28.5 L Red Cell Distribution Width 26.3 H Platelet Count 145 Mean Platelet Volume 11.2 H Neutrophils % 89.6 H Lymphocytes % 4.0 L Monocytes % 5.6 Eosinophils % 0.1 Basophils % 0.1 Nucleated Red Blood Cells % 0.6 H Neutrophils # 11.1 H Lymphocytes # 0.5 L Monocytes # 0.7 Eosinophils # 0.0 Basophils # 0.0 Nucleated Red Blood Cells # 0.1 H Sodium Level 141 Potassium Level 4.0 Chloride Level 103 Carbon Dioxide Level 26 Anion Gap 16 Blood Urea Nitrogen 63 H Creatinine 2.23 H Glucose Level 167 # Calcium Level 8.6 Total Bilirubin 0.5 Direct Bilirubin 0.00 # Indirect Bilirubin 0.5 Aspartate Amino Transf (AST/SGOT) 484 H Alanine Aminotransferase (ALT/SGPT) 223 H Alkaline Phosphatase 261 H Total Protein 6.1 Albumin 2.6 L Globulin 3.50 H Albumin/Globulin Ratio 0.74 Test 10/16/16 08:33 10/16/16 13:20 Bedside Glucose 185 195 Medications Medications Current Medications Acetaminophen (Tylenol Liquid) 650 mg Q4H PRN NGT PAIN AND OR ELEVATED TEMP Last administered on 09/27/16 05:14; Admin Dose 650 MG; Start 09/21/16 at 02:00 Eye Lubricant (Artificial Tears Oph) 2 drop QID BOTH EYES Last administered on 10/16/16 13:23; Admin Dose 2 DROP; Start 09/21/16 at 09:00 Atorvastatin Calcium (Lipitor) 80 mg HS NGT Last administered on 10/14/16 20: 52; Admin Dose 80 MG; Start 09/22/16 at 21:00 Pantoprazole (Protonix Iv) 40 mg AM IV Last administered on 10/16/16 08:33; Admin Dose 40 MG; Start 09/26/16 at 09:00 Epoetin Raj (Epogen (Esrd)) 10,000 units TuThSa@17 SC Last administered on 17:02; Admin Dose 10,000 UNITS; Start 09/26/16 at 17:00 IV Flush (NS 10 ml) 10 ml PRN PRN IV IV PROTOCOL; Start 09/26/16 at 17:30 Aspirin (Aspirin) 81 mg DAILY NGT Last administered on 10/15/16 09:13; Admin Dose 81 MG; Start 09/27/16 at 09:00 Clopidogrel Bisulfate (plaVIX) 75 mg DAILY NGT Last administered on 10/15/16 09:13; Admin Dose 75 MG; Start 09/27/16 at 09:00 Morphine Sulfate (morphine) 2 mg Q4H PRN IV PAIN Last administered on 14:34; Admin Dose 2 MG; Start 09/28/16 at 16:00 Sodium Biphosphate/ Sodium Phosphate 133 ml 133 ml DAILY PRN [place] CONSTIPATION Last administered on 10/09/16 00:50; Admin Dose 133 ML; Start 10/01/16 at 17:00 Norepinephrine 16 mg/Dextrose 500 ml @ 1.87 mls/hr TITRATE IV ; Start 10/04/16 at 07:00 Midazolam HCl 50 ml @ 1 mls/hr TITRATE IV Last administered on 10/07/16 09:47; Admin Dose 3 MLS/HR; Start 10/07/16 at 10:00 Dopamine HCl/ Dextrose 250 ml @ 7.5 mls/hr TITRATE IV Last administered on 10/07 11:00; Admin Dose 37.5 MLS/HR; Start 10/07/16 at 11:30 Lactobacillus Acidoph/Bulgaricus (Floranex) 1 tab TID PO Last administered on 09:12; Admin Dose 1 TAB; Start 10/09/16 at 21:00 Miscellaneous Information 1 ea NOTE XX ; Start 10/09/16 at 20:30 Glucose (Glutose) 15 gm Q15M PRN PO DECREASED GLUCOSE; Start 10/09/16 at 20:30 Glucose (Glutose) 22.5 gm Q15M PRN PO DECREASED GLUCOSE; Start 10/09/16 at 20:30 Dextrose (D50w Syringe) 25 ml Q15M PRN IV DECREASED GLUCOSE Last administered on 10/14/16 00:31; Admin Dose 25 ML; Start 10/09/16 at 20:30 Dextrose (D50w Syringe) 50 ml Q15M PRN IV DECREASED GLUCOSE Last administered on 10/11/16 17:37; Admin Dose 50 ML; Start 10/09/16 at 20:30 Glucagon (Glucagen) 1 mg Q15M PRN IM DECREASED GLUCOSE; Start 10/09/16 at 20:30 Glucose 15 gm 15 gm Q15M PRN BUCCAL DECREASED GLUCOSE; Start 10/09/16 at 20:30 Propofol (Diprivan) 100 ml @ 3 mls/hr Q12H IV Last administered on 10/13/16 19: 03; Admin Dose 3 MLS/HR; Start 10/11/16 at 09:30 Heparin Sodium (Porcine) (Heparin (5000 Units/0.5 ml)) 5,000 unit Q12 SC Last administered on 10/16/16 08:35; Admin Dose 5,000 UNIT; Start 10/11/16 at 21:00 Metoclopramide HCl (Reglan) 5 mg Q6 IV Last administered on 10/16/16 12:00; Admin Dose 5 MG; Start 10/14/16 at 12:00 Calcium Carbonate 500 mg 500 mg TID NGT ; Start 10/15/16 at 21:00 Dextrose/Sodium Chloride (D5-1/2ns) 1,000 ml @ 50 mls/hr Q20H IV Last administered on 10/15/16 21:01; Admin Dose 50 MLS/HR; Start 10/15/16 at 20:30 Metoprolol Tartrate (Lopressor) 12.5 mg BID PO ; Start 10/16/16 at 09:00 Insulin Glargine (Lantus) 26 unit DAILY@08 SC ; Start 10/17/16 at 08:00 Insulin Aspart (Novolog Insulin Pen) NOVOLOG *MODERATE* ALGORI... Q4 SC Last administered on 10/16/16 13:22; Admin Dose 4 UNIT; Start 10/16/16 at 13:00 ROSALINA SIMS NP Oct 16, 2016 14:41
--- NOTE | 2016-10-16 17:03 | PN ---
Date/Time of Note Date/Time of Note DATE: 10/16/16 TIME: 16:57 Assessment/Plan VTE Prophylaxis VTE Prophylaxis Intervention: other (asa, plavix) Lines/Catheters IV Catheter Type (from Nrsg): permacath Central line still needed: No Urinary Cath still in place: Yes Reason Cath still needed: terminal illness/intractable pain Assessment/Plan Assessment/Plan 1. cad/ transient a fib/ low bp 2. arf--extubated/ rt lung effusion 3. arf-- dialysis dep/ anemia/ edema 4. dm/ obesity 5. pvd 6. weak musc ---per cards ---per pulm ---per renal ---deligent PT exercises ---swallow eval ---cont all supportive cares Subjective 24 Hr Interval Summary Free Text/Dictation extubated, awakable, responsive Exam/Review of Systems Vital Signs Vitals Vital Signs Date Time Temp Pulse Resp B/P Pulse Ox O2 Delivery O2 Flow Rate FiO2 10/16/16 16:00 91 10/16/16 15:00 15 100 Nasal Cannula 10/16/16 14:49 4.0 10/16/16 14:00 138/67 10/16/16 12:00 97.0 10/15/16 14:50 30 Intake and Output 10/15/16 10/15/16 10/16/16 15:00 23:00 07:00 Intake Total 565 ml 310 ml 400 ml Output Total 3045 ml 40 ml 40 ml Balance -2480 ml 270 ml 360 ml Exam using all access musc to breathe+ responsive but only slight self movement in bed+ dec bs rt base+ rr diast m+ global edema+ a few toes blue+ Results Result Diagram: 10/16/16 0400 10/16/16 0400 Results 24 hrs Laboratory Tests Test 10/15/16 16:59 10/15/16 23:45 10/16/16 04:00 10/16/16 05:59 Bedside Glucose 192 142 132 White Blood Count 12.3 #H Red Blood Count 3.22 L Hemoglobin 9.3 L Hematocrit 32.6 L Mean Corpuscular Volume 101.2 H Mean Corpuscular Hemoglobin 28.9 L Mean Corpuscular Hemoglobin Concent 28.5 L Red Cell Distribution Width 26.3 H Platelet Count 145 Mean Platelet Volume 11.2 H Neutrophils % 89.6 H Lymphocytes % 4.0 L Monocytes % 5.6 Eosinophils % 0.1 Basophils % 0.1 Nucleated Red Blood Cells % 0.6 H Neutrophils # 11.1 H Lymphocytes # 0.5 L Monocytes # 0.7 Eosinophils # 0.0 Basophils # 0.0 Nucleated Red Blood Cells # 0.1 H Sodium Level 141 Potassium Level 4.0 Chloride Level 103 Carbon Dioxide Level 26 Anion Gap 16 Blood Urea Nitrogen 63 H Creatinine 2.23 H Glucose Level 167 # Calcium Level 8.6 Total Bilirubin 0.5 Direct Bilirubin 0.00 # Indirect Bilirubin 0.5 Aspartate Amino Transf (AST/SGOT) 484 H Alanine Aminotransferase (ALT/SGPT) 223 H Alkaline Phosphatase 261 H Total Protein 6.1 Albumin 2.6 L Globulin 3.50 H Albumin/Globulin Ratio 0.74 Test 10/16/16 08:33 10/16/16 13:20 Bedside Glucose 185 195 Medications Medications Current Medications Acetaminophen (Tylenol Liquid) 650 mg Q4H PRN NGT PAIN AND OR ELEVATED TEMP Last administered on 09/27/16 05:14; Admin Dose 650 MG; Start 09/21/16 at 02:00 Eye Lubricant (Artificial Tears Oph) 2 drop QID BOTH EYES Last administered on 10/16/16 13:23; Admin Dose 2 DROP; Start 09/21/16 at 09:00 Atorvastatin Calcium (Lipitor) 80 mg HS NGT Last administered on 10/14/16 20: 52; Admin Dose 80 MG; Start 09/22/16 at 21:00 Pantoprazole (Protonix Iv) 40 mg AM IV Last administered on 10/16/16 08:33; Admin Dose 40 MG; Start 09/26/16 at 09:00 Epoetin Raj (Epogen (Esrd)) 10,000 units TuTa@17 SC Last administered on 17:02; Admin Dose 10,000 UNITS; Start 09/26/16 at 17:00 IV Flush (NS 10 ml) 10 ml PRN PRN IV IV PROTOCOL; Start 09/26/16 at 17:30 Aspirin (Aspirin) 81 mg DAILY NGT Last administered on 10/15/16 09:13; Admin Dose 81 MG; Start 09/27/16 at 09:00 Clopidogrel Bisulfate (plaVIX) 75 mg DAILY NGT Last administered on 10/15/16 09:13; Admin Dose 75 MG; Start 09/27/16 at 09:00 Morphine Sulfate (morphine) 2 mg Q4H PRN IV PAIN Last administered on 14:34; Admin Dose 2 MG; Start 09/28/16 at 16:00 Sodium Biphosphate/ Sodium Phosphate 133 ml 133 ml DAILY PRN [place] CONSTIPATION Last administered on 10/09/16 00:50; Admin Dose 133 ML; Start 10/01/16 at 17:00 Norepinephrine 16 mg/Dextrose 500 ml @ 1.87 mls/hr TITRATE IV ; Start 10/04/16 at 07:00 Midazolam HCl 50 ml @ 1 mls/hr TITRATE IV Last administered on 10/07/16 09:47; Admin Dose 3 MLS/HR; Start 10/07/16 at 10:00 Dopamine HCl/ Dextrose 250 ml @ 7.5 mls/hr TITRATE IV Last administered on 10/07 11:00; Admin Dose 37.5 MLS/HR; Start 10/07/16 at 11:30 Lactobacillus Acidoph/Bulgaricus (Floranex) 1 tab TID PO Last administered on 09:12; Admin Dose 1 TAB; Start 10/09/16 at 21:00 Miscellaneous Information 1 ea NOTE XX ; Start 10/09/16 at 20:30 Glucose (Glutose) 15 gm Q15M PRN PO DECREASED GLUCOSE; Start 10/09/16 at 20:30 Glucose (Glutose) 22.5 gm Q15M PRN PO DECREASED GLUCOSE; Start 10/09/16 at 20:30 Dextrose (D50w Syringe) 25 ml Q15M PRN IV DECREASED GLUCOSE Last administered on 10/14/16 00:31; Admin Dose 25 ML; Start 10/09/16 at 20:30 Dextrose (D50w Syringe) 50 ml Q15M PRN IV DECREASED GLUCOSE Last administered on 10/11/16 17:37; Admin Dose 50 ML; Start 10/09/16 at 20:30 Glucagon (Glucagen) 1 mg Q15M PRN IM DECREASED GLUCOSE; Start 10/09/16 at 20:30 Glucose 15 gm 15 gm Q15M PRN BUCCAL DECREASED GLUCOSE; Start 10/09/16 at 20:30 Propofol (Diprivan) 100 ml @ 3 mls/hr Q12H IV Last administered on 10/13/16 19: 03; Admin Dose 3 MLS/HR; Start 10/11/16 at 09:30 Heparin Sodium (Porcine) (Heparin (5000 Units/0.5 ml)) 5,000 unit Q12 SC Last administered on 10/16/16 08:35; Admin Dose 5,000 UNIT; Start 10/11/16 at 21:00 Metoclopramide HCl (Reglan) 5 mg Q6 IV Last administered on 10/16/16 12:00; Admin Dose 5 MG; Start 10/14/16 at 12:00 Calcium Carbonate 500 mg 500 mg TID NGT ; Start 10/15/16 at 21:00 Dextrose/Sodium Chloride (D5-1/2ns) 1,000 ml @ 50 mls/hr Q20H IV Last administered on 10/15/16 21:01; Admin Dose 50 MLS/HR; Start 10/15/16 at 20:30 Metoprolol Tartrate (Lopressor) 12.5 mg BID PO ; Start 10/16/16 at 09:00 Insulin Glargine (Lantus) 26 unit DAILY@08 SC ; Start 10/17/16 at 08:00 Insulin Aspart (Novolog Insulin Pen) NOVOLOG *MODERATE* ALGORI... Q4 SC Last administered on 10/16/16 13:22; Admin Dose 4 UNIT; Start 10/16/16 at 13:00 SHAMA LOPEZ MD Oct 16, 2016 17:02
[2016-10-16] MEDS: DEXTROSE 5%-0.45% NACL 1,000 ML IV SCH (17:53)
[2016-10-16] MEDS: ATORVASTATIN 80 MG TAB NGT SCH (21:00)
[2016-10-17] VITALS (36 sets, daily range): BP systolic 85–144; BP diastolic 47–77; PULSE 86–106; RESP 10–23
[2016-10-17] MEDS: morphine 2 MG INJ IV PRN (00:19)
[2016-10-17] MEDS: METOCLOPRAMIDE 10 MG INJ IV SCH ×4 (00:19→17:14)
[2016-10-17] MEDS: INSULIN ASPART [NOVOLOG] 3 ML PEN SC SCH ×6 (00:51→21:52)
[2016-10-17] MEDS: IPRATROPIUM (NEB) 0.5 MG/2.5 ML AMP HHN SCH ×4 (00:59→20:30)
[2016-10-17] MEDS: LEVALBUTEROL (NEB) 1.25 MG/0.5 ML AMP HHN SCH ×4 (00:59→20:30)
[2016-10-17] MEDS: ACETYLCYSTEINE 20% 4 ML VIAL NEB SCH ×4 (01:11→20:31)
[2016-10-17 05:58] LABS: ADD SCAN DIFF NO
[2016-10-17 06:01] LABS: ABNORMAL IP MESSAGE 1; BASOPHILS % 0.1 % (0.0-2.0); EOSINOPHILS # 0.1 10^3/ul (0.0-0.5); HEMATOCRIT 29.5 % (37.0-47.0); HEMOGLOBIN 8.6 g/dl (12.0-16.0); LYMPHOCYTES # 0.7 10^3/ul (0.8-2.9); LYMPHOCYTES % 6.7 % (15.0-51.0); MEAN CORPUSCULAR HGB CONC 29.2 g/dl (32.0-37.0); MEAN CORPUSCULAR VOLUME 102.8 fl (82.0-101.0); MEAN PLATELET VOLUME 11.3 fl (7.4-10.4); MONOCYTE # 0.7 10^3/ul (0.3-0.9); MONOCYTES % 6.9 % (0.0-11.0); NEUTROPHIL # 8.8 10^3/ul (1.6-7.5); NEUTROPHILS % 84.6 % (39.0-77.0); NUCLEATED RED BLOOD CELLS # 0.1 10^3/ul (0.0-0.0); NUCLEATED RED BLOOD CELLS% 0.6 /100WBC (0.0-0.0); PLATELET COUNT 173 10^3/UL (140-415); RED BLOOD COUNT 2.87 10^6/ul (4.20-5.40); RED CELL DISTRIBUTION WIDTH 26.1 % (11.5-14.5); WHITE BLOOD COUNT 10.4 10^3/ul (4.8-10.8)
[2016-10-17 06:14] LABS: ALBUMIN 2.4 g/dl (3.3-4.9); ALBUMIN/GLOBULIN RATIO 0.77; BILIRUBIN,INDIRECT 0.3 mg/dl (0-1.1); BILIRUBIN,TOTAL 0.3 mg/dl (0.2-1.3); CALCIUM 7.7 mg/dl (8.4-10.2); POTASSIUM 4.2 mmol/L (3.5-5.1); TOTAL PROTEIN 5.5 g/dl (6.1-8.1)
[2016-10-17 06:27] LABS: CREATININE 2.75 mg/dl (0.44-1.00)
[2016-10-17] MEDS: CALCIUM CARBONATE 500 MG CHEW TAB NGT SCH ×3 (09:00→20:16)
[2016-10-17] MEDS: LACTOBACILLUS CHEW TAB PO SCH ×3 (09:00→20:16)
[2016-10-17] MEDS: METOPROLOL 25 MG TAB PO SCH ×2 (09:00→20:16)
[2016-10-17] MEDS: CLOPIDOGREL 75 MG TAB NGT SCH (09:00)
[2016-10-17] MEDS: ASPIRIN 81 MG TAB NGT SCH (09:00)
--- NOTE | 2016-10-17 09:23 | CONS ---
Date/Time of Note Date/Time of Note DATE: 10/17/16 TIME: 09:20 Assessment/Plan Assessment/Plan Chief Complaint/Hosp Course 1. Acute Renal Failure due to ATN , oliguric . Her BUN is lower . I ordered hemodialysis for today . I would recommend we continue dialysis every other day. 2. ALOC , she is improved 3. liver enzyme elevation due to anoxia , enzymes are decreasing . 4. hypotension , she is now normotensive off pressors. 5. hypocalcemia/hypoalbuminemia , calcium is higher 6. anemia , she has not had any recent GI bleeding . 7. peripheral vascular disease . 8. respiratory failure , off ventilator . Problems: Consultation Date/Type/Reason Admit Date/Time Sep 20, 2016 at 19:21 Initial Consult Date 09/23/16 Type of Consultation: id Referring Provider: ZANDRA ROBISON MD, [facility] 24 HR Interval Summary Free Text/Dictation She is awake and alert . Her urine output remains low . Constitutional: improved, no complaints Exam/Review of Systems Vital Signs Vitals Vital Signs Date Time Temp Pulse Resp B/P Pulse Ox O2 Delivery O2 Flow Rate FiO2 10/17/16 08:00 96 14 99 Nasal Cannula 4.0 10/17/16 08:00 97.8 110/55 10/15/16 14:50 30 Intake and Output 10/16/16 10/16/16 10/17/16 15:00 23:00 07:00 Intake Total 400 ml 400 ml 400 ml Output Total 75 ml 20 ml 0 ml Balance 325 ml 380 ml 400 ml Exam Constitutional: alert, obese, oriented Respiratory: clear to auscultation, normal air movement Cardiovascular: regular rate and rhythm Gastrointestinal: soft Extremities: edema Results Result Diagram: 10/17/16 0503 10/17/16 0503 Results 24 hrs Laboratory Tests Test 10/16/16 13:20 10/16/16 17:52 10/16/16 21:07 10/17/16 00:47 Bedside Glucose 195 172 171 151 Test 10/17/16 05:03 10/17/16 05:11 10/17/16 08:55 White Blood Count 10.4 Red Blood Count 2.87 L Hemoglobin 8.6 L Hematocrit 29.5 L Mean Corpuscular Volume 102.8 H Mean Corpuscular Hemoglobin 30.0 Mean Corpuscular Hemoglobin Concent 29.2 L Red Cell Distribution Width 26.1 H Platelet Count 173 Mean Platelet Volume 11.3 H Neutrophils % 84.6 H Lymphocytes % 6.7 L Monocytes % 6.9 Eosinophils % 1.0 Basophils % 0.1 Nucleated Red Blood Cells % 0.6 H Neutrophils # 8.8 H Lymphocytes # 0.7 L Monocytes # 0.7 Eosinophils # 0.1 Basophils # 0.0 Nucleated Red Blood Cells # 0.1 H Sodium Level 133 L Potassium Level 4.2 Chloride Level 102 Carbon Dioxide Level 24 Anion Gap 11 Blood Urea Nitrogen 68 H Creatinine 2.75 H Glucose Level 389 #H Calcium Level 7.7 L Total Bilirubin 0.3 Direct Bilirubin 0.00 Indirect Bilirubin 0.3 Aspartate Amino Transf (AST/SGOT) 308 H Alanine Aminotransferase (ALT/SGPT) 197 H Alkaline Phosphatase 229 H Total Protein 5.5 L Albumin 2.4 L Globulin 3.10 Albumin/Globulin Ratio 0.77 Bedside Glucose 156 158 Medications Medications Current Medications Acetaminophen (Tylenol Liquid) 650 mg Q4H PRN NGT PAIN AND OR ELEVATED TEMP Last administered on 09/27/16 05:14; Admin Dose 650 MG; Start 09/21/16 at 02:00 Eye Lubricant (Artificial Tears Oph) 2 drop QID BOTH EYES Last administered on 10/16/16 21:07; Admin Dose 2 DROP; Start 09/21/16 at 09:00 Atorvastatin Calcium (Lipitor) 80 mg HS NGT Last administered on 10/14/16 20: 52; Admin Dose 80 MG; Start 09/22/16 at 21:00 Pantoprazole (Protonix Iv) 40 mg AM IV Last administered on 10/16/16 08:33; Admin Dose 40 MG; Start 09/26/16 at 09:00 Epoetin Raj (Epogen (Esrd)) 10,000 units TuThSa@17 SC Last administered on 17:02; Admin Dose 10,000 UNITS; Start 09/26/16 at 17:00 IV Flush (NS 10 ml) 10 ml PRN PRN IV IV PROTOCOL; Start 09/26/16 at 17:30 Aspirin (Aspirin) 81 mg DAILY NGT Last administered on 10/15/16 09:13; Admin Dose 81 MG; Start 09/27/16 at 09:00 Clopidogrel Bisulfate (plaVIX) 75 mg DAILY NGT Last administered on 10/15/16 09:13; Admin Dose 75 MG; Start 09/27/16 at 09:00 Morphine Sulfate (morphine) 2 mg Q4H PRN IV PAIN Last administered on 00:19; Admin Dose 2 MG; Start 09/28/16 at 16:00 Sodium Biphosphate/ Sodium Phosphate 133 ml 133 ml DAILY PRN [place] CONSTIPATION Last administered on 10/09/16 00:50; Admin Dose 133 ML; Start 10/01/16 at 17:00 Norepinephrine 16 mg/Dextrose 500 ml @ 1.87 mls/hr TITRATE IV ; Start 10/04/16 at 07:00 Midazolam HCl 50 ml @ 1 mls/hr TITRATE IV Last administered on 10/07/16 09:47; Admin Dose 3 MLS/HR; Start 10/07/16 at 10:00 Dopamine HCl/ Dextrose 250 ml @ 7.5 mls/hr TITRATE IV Last administered on 10/07 11:00; Admin Dose 37.5 MLS/HR; Start 10/07/16 at 11:30 Lactobacillus Acidoph/Bulgaricus (Floranex) 1 tab TID PO Last administered on 09:12; Admin Dose 1 TAB; Start 10/09/16 at 21:00 Miscellaneous Information 1 ea NOTE XX ; Start 10/09/16 at 20:30 Glucose (Glutose) 15 gm Q15M PRN PO DECREASED GLUCOSE; Start 10/09/16 at 20:30 Glucose (Glutose) 22.5 gm Q15M PRN PO DECREASED GLUCOSE; Start 10/09/16 at 20:30 Dextrose (D50w Syringe) 25 ml Q15M PRN IV DECREASED GLUCOSE Last administered on 10/14/16 00:31; Admin Dose 25 ML; Start 10/09/16 at 20:30 Dextrose (D50w Syringe) 50 ml Q15M PRN IV DECREASED GLUCOSE Last administered on 10/11/16 17:37; Admin Dose 50 ML; Start 10/09/16 at 20:30 Glucagon (Glucagen) 1 mg Q15M PRN IM DECREASED GLUCOSE; Start 10/09/16 at 20:30 Glucose (Glutose) 15 gm Q15M PRN BUCCAL DECREASED GLUCOSE; Start 10/09/16 at 20: 30 Heparin Sodium (Porcine) (Heparin (5000 Units/0.5 ml)) 5,000 unit Q12 SC Last administered on 10/16/16 21:11; Admin Dose 5,000 UNIT; Start 10/11/16 at 21:00 Metoclopramide HCl (Reglan) 5 mg Q6 IV Last administered on 10/17/16 05:27; Admin Dose 5 MG; Start 10/14/16 at 12:00 Calcium Carbonate 500 mg 500 mg TID NGT ; Start 10/15/16 at 21:00 Dextrose/Sodium Chloride (D5-1/2ns) 1,000 ml @ 50 mls/hr Q20H IV Last administered on 10/16/16 17:53; Admin Dose 50 MLS/HR; Start 10/15/16 at 20:30 Metoprolol Tartrate (Lopressor) 12.5 mg BID PO ; Start 10/16/16 at 09:00 Insulin Glargine (Lantus) 26 unit DAILY@08 SC ; Start 10/17/16 at 08:00 Insulin Aspart (Novolog Insulin Pen) NOVOLOG *MODERATE* ALGORI... Q4 SC Last administered on 10/17/16 05:29; Admin Dose 2 UNIT; Start 10/16/16 at 13:00 DAMIR MARTINEZ MD Oct 17, 2016 09:23
--- NOTE | 2016-10-17 09:24 | CONS ---
Date/Time of Note Date/Time of Note DATE: 10/17/16 TIME: 09:22 Assessment/Plan Assessment/Plan Additional Assessment/Plan Assessment and recommendations; next 1. Patient admitted for acute VT and respiratory failure no successfully extubated several days ago. 2. Extensive right-sided pneumonia with interval improvement status post bronchoscopy. 3. Renal failure. On hemodialysis. 4. Improving anasarca. 5. Myopathy. With interval improvement as well. Continue current treatment. Patient can be transferred to the medical floor. Consultation Date/Type/Reason Admit Date/Time Sep 20, 2016 at 19:21 Initial Consult Date 09/23/16 Type of Consultation: Pulmonary/critical care Referring Provider: ZANDRA ROBISON MD, [facility] 24 HR Interval Summary Free Text/Dictation Patient condition is stable. Remains completely awake alert. According to her she is feeling better every day. Has been able to eat. Denies any shortness of breath. General exam; elderly lady, awake alert currently in no distress. Exam/Review of Systems Vital Signs Vitals Vital Signs Date Time Temp Pulse Resp B/P Pulse Ox O2 Delivery O2 Flow Rate FiO2 10/17/16 08:00 96 14 99 Nasal Cannula 4.0 10/17/16 08:00 97.8 110/55 10/15/16 14:50 30 Intake and Output 10/16/16 10/16/16 10/17/16 15:00 23:00 07:00 Intake Total 400 ml 400 ml 400 ml Output Total 75 ml 20 ml 0 ml Balance 325 ml 380 ml 400 ml Exam HEENT examination; supple neck, no JVD. No lymphadenopathy. Midline trachea. No thyromegaly. No neck masses. Pupils are midsize and reactive to light. Patient has fair dentition. Chest examination; clear to auscultation. S1-S2 audible, no murmurs. Regular rhythm. Abdomen examination; soft, nondistended. No organomegaly. Bowel sounds audible. Extremity exam is; patient has ecchymosis involving all 4 extremities. There is reduction in generalized anasarca. [employer] exam is; patient is awake alert follows commands moves all 4 extremities with improvement in muscular strength. Results Result Diagram: 10/17/16 0503 10/17/16 0503 Results 24 hrs Laboratory Tests Test 10/16/16 13:20 10/16/16 17:52 10/16/16 21:07 10/17/16 00:47 Bedside Glucose 195 172 171 151 Test 10/17/16 05:03 10/17/16 05:11 10/17/16 08:55 White Blood Count 10.4 Red Blood Count 2.87 L Hemoglobin 8.6 L Hematocrit 29.5 L Mean Corpuscular Volume 102.8 H Mean Corpuscular Hemoglobin 30.0 Mean Corpuscular Hemoglobin Concent 29.2 L Red Cell Distribution Width 26.1 H Platelet Count 173 Mean Platelet Volume 11.3 H Neutrophils % 84.6 H Lymphocytes % 6.7 L Monocytes % 6.9 Eosinophils % 1.0 Basophils % 0.1 Nucleated Red Blood Cells % 0.6 H Neutrophils # 8.8 H Lymphocytes # 0.7 L Monocytes # 0.7 Eosinophils # 0.1 Basophils # 0.0 Nucleated Red Blood Cells # 0.1 H Sodium Level 133 L Potassium Level 4.2 Chloride Level 102 Carbon Dioxide Level 24 Anion Gap 11 Blood Urea Nitrogen 68 H Creatinine 2.75 H Glucose Level 389 #H Calcium Level 7.7 L Total Bilirubin 0.3 Direct Bilirubin 0.00 Indirect Bilirubin 0.3 Aspartate Amino Transf (AST/SGOT) 308 H Alanine Aminotransferase (ALT/SGPT) 197 H Alkaline Phosphatase 229 H Total Protein 5.5 L Albumin 2.4 L Globulin 3.10 Albumin/Globulin Ratio 0.77 Bedside Glucose 156 158 Medications Medications Current Medications Acetaminophen (Tylenol Liquid) 650 mg Q4H PRN NGT PAIN AND OR ELEVATED TEMP Last administered on 09/27/16 05:14; Admin Dose 650 MG; Start 09/21/16 at 02:00 Eye Lubricant (Artificial Tears Oph) 2 drop QID BOTH EYES Last administered on 10/16/16 21:07; Admin Dose 2 DROP; Start 09/21/16 at 09:00 Atorvastatin Calcium (Lipitor) 80 mg HS NGT Last administered on 10/14/16 20: 52; Admin Dose 80 MG; Start 09/22/16 at 21:00 Pantoprazole (Protonix Iv) 40 mg AM IV Last administered on 10/16/16 08:33; Admin Dose 40 MG; Start 09/26/16 at 09:00 Epoetin Raj (Epogen (Esrd)) 10,000 units TuThSa@17 SC Last administered on 17:02; Admin Dose 10,000 UNITS; Start 09/26/16 at 17:00 IV Flush (NS 10 ml) 10 ml PRN PRN IV IV PROTOCOL; Start 09/26/16 at 17:30 Aspirin (Aspirin) 81 mg DAILY NGT Last administered on 10/15/16 09:13; Admin Dose 81 MG; Start 09/27/16 at 09:00 Clopidogrel Bisulfate (plaVIX) 75 mg DAILY NGT Last administered on 10/15/16 09:13; Admin Dose 75 MG; Start 09/27/16 at 09:00 Morphine Sulfate (morphine) 2 mg Q4H PRN IV PAIN Last administered on 00:19; Admin Dose 2 MG; Start 09/28/16 at 16:00 Sodium Biphosphate/ Sodium Phosphate 133 ml 133 ml DAILY PRN NM CONSTIPATION Last administered on 10/09/16 00:50; Admin Dose 133 ML; Start 10/01/16 at 17:00 Norepinephrine 16 mg/Dextrose 500 ml @ 1.87 mls/hr TITRATE IV ; Start 10/04/16 at 07:00 Midazolam HCl 50 ml @ 1 mls/hr TITRATE IV Last administered on 10/07/16 09:47; Admin Dose 3 MLS/HR; Start 10/07/16 at 10:00 Dopamine HCl/ Dextrose 250 ml @ 7.5 mls/hr TITRATE IV Last administered on 10/07 11:00; Admin Dose 37.5 MLS/HR; Start 10/07/16 at 11:30 Lactobacillus Acidoph/Bulgaricus (Floranex) 1 tab TID PO Last administered on 09:12; Admin Dose 1 TAB; Start 10/09/16 at 21:00 Miscellaneous Information 1 ea NOTE XX ; Start 10/09/16 at 20:30 Glucose (Glutose) 15 gm Q15M PRN PO DECREASED GLUCOSE; Start 10/09/16 at 20:30 Glucose (Glutose) 22.5 gm Q15M PRN PO DECREASED GLUCOSE; Start 10/09/16 at 20:30 Dextrose (D50w Syringe) 25 ml Q15M PRN IV DECREASED GLUCOSE Last administered on 10/14/16 00:31; Admin Dose 25 ML; Start 10/09/16 at 20:30 Dextrose (D50w Syringe) 50 ml Q15M PRN IV DECREASED GLUCOSE Last administered on 10/11/16 17:37; Admin Dose 50 ML; Start 10/09/16 at 20:30 Glucagon (Glucagen) 1 mg Q15M PRN IM DECREASED GLUCOSE; Start 10/09/16 at 20:30 Glucose (Glutose) 15 gm Q15M PRN BUCCAL DECREASED GLUCOSE; Start 10/09/16 at 20: 30 Heparin Sodium (Porcine) (Heparin (5000 Units/0.5 ml)) 5,000 unit Q12 SC Last administered on 10/16/16 21:11; Admin Dose 5,000 UNIT; Start 10/11/16 at 21:00 Metoclopramide HCl (Reglan) 5 mg Q6 IV Last administered on 10/17/16 05:27; Admin Dose 5 MG; Start 10/14/16 at 12:00 Calcium Carbonate 500 mg 500 mg TID NGT ; Start 10/15/16 at 21:00 Dextrose/Sodium Chloride (D5-1/2ns) 1,000 ml @ 50 mls/hr Q20H IV Last administered on 10/16/16 17:53; Admin Dose 50 MLS/HR; Start 10/15/16 at 20:30 Metoprolol Tartrate (Lopressor) 12.5 mg BID PO ; Start 10/16/16 at 09:00 Insulin Glargine (Lantus) 26 unit DAILY@08 SC ; Start 10/17/16 at 08:00 Insulin Aspart (Novolog Insulin Pen) NOVOLOG *MODERATE* ALGORI... Q4 SC Last administered on 10/17/16 05:29; Admin Dose 2 UNIT; Start 10/16/16 at 13:00 ADIS CAMACHO Oct 17, 2016 09:24
[2016-10-17] MEDS: ARTIFICIAL TEARS 15 ML OPH BOTH EYES SCH ×4 (09:39→20:09)
[2016-10-17] MEDS: PANTOPRAZOLE 40 MG INJ IV SCH (09:39)
[2016-10-17] MEDS: INSULIN GLARGINE [LANtus] 3 ML PEN SC SCH (09:41)
[2016-10-17] MEDS: HEPARIN 5,000 UNIT/0.5 ML VIAL SC SCH ×2 (09:41→20:22)
[2016-10-17] MEDS: DEXTROSE 5%-0.45% NACL 1,000 ML IV SCH (12:30)
--- NOTE | 2016-10-17 14:20 | PN ---
DATE: 10/17/2016 INFECTIOUS DISEASE PROGRESS NOTE SUBJECTIVE: No events overnight. The patient is lying comfortably in bed. No fevers. She did not pass a swallow evaluation. Pending repeated one. WBC today 10.4, neutrophils 84.6. INDWELLINGS: The patient has a right subclavian PermCath, Rivas catheter, PICC line. PHYSICAL EXAMINATION: GENERAL: This is a well-developed, obese, elderly woman, who is in no distress. HEENT: Head atraumatic, normocephalic. Sclerae anicteric. Buccal mucosa dry. NECK: Supple, trachea midline. CHEST: Chest rise is symmetrical. Breath sounds diminished to the bases. HEART: S1, S2. ABDOMEN: Soft. Bowel tones present. EXTREMITIES: With bilateral trace edema. ASSESSMENT: 1. Status post sepsis with acute respiratory failure. 2. Status post pneumonia and urinary tract infection. 3. Status post cardiopulmonary arrest. 4. Acute myocardial infarction, status post PTCA. 5. Morbid obesity. PLAN: The patient remains stable after intubation extubation. Pending transfer to telemetry. Pend ing repeat swallow evaluation. She is off antibiotics. We will panculture p.r.n. if she spikes a f ever. Dictated By: ROSALINA SIMS [employer] LAYER for NOEMI LARA/JERROD Conf#: [id number] DID#: [id number]
--- NOTE | 2016-10-17 14:53 | PN ---
Date/Time of Note Date/Time of Note DATE: 10/17/16 TIME: 14:48 Assessment/Plan VTE Prophylaxis VTE Prophylaxis Intervention: heparin, other (asa, ) Lines/Catheters IV Catheter Type (from Nrsg): PERMACATH Central line still needed: No Urinary Cath still in place: Yes Reason Cath still needed: other (indicate) (musc weak, not yet out of bed yet) Assessment/Plan Assessment/Plan 1. cad/ htn/ pvd 2. arf--extubated/ rt pneumonitis/ still has much mucus--resp tx 3. arf--dialysis/ anemia 4. dm 5. musc weak ---per cards ---per pulm ---per renal ---per PT ---await swallow study ---out to tele de bed ok ---cont all supportive cares Subjective 24 Hr Interval Summary Free Text/Dictation weak, tired, much throat mucus, more awake Exam/Review of Systems Vital Signs Vitals Vital Signs Date Time Temp Pulse Resp B/P Pulse Ox O2 Delivery O2 Flow Rate FiO2 10/17/16 14:15 97 10/17/16 13:00 18 123/55 100 Nasal Cannula 4.0 10/17/16 12:00 97.9 10/15/16 14:50 30 Intake and Output 10/16/16 10/16/16 10/17/16 15:00 23:00 07:00 Intake Total 400 ml 400 ml 400 ml Output Total 75 ml 20 ml 0 ml Balance 325 ml 380 ml 400 ml Exam awake , appropriate response set at the edge of bed dec bs rt lung toes blue global ext edema+ Results Result Diagram: 10/17/16 0503 10/17/16 0503 Results 24 hrs Laboratory Tests Test 10/16/16 17:52 10/16/16 21:07 10/17/16 00:47 10/17/16 05:03 Bedside Glucose 172 171 151 White Blood Count 10.4 Red Blood Count 2.87 L Hemoglobin 8.6 L Hematocrit 29.5 L Mean Corpuscular Volume 102.8 H Mean Corpuscular Hemoglobin 30.0 Mean Corpuscular Hemoglobin Concent 29.2 L Red Cell Distribution Width 26.1 H Platelet Count 173 Mean Platelet Volume 11.3 H Neutrophils % 84.6 H Lymphocytes % 6.7 L Monocytes % 6.9 Eosinophils % 1.0 Basophils % 0.1 Nucleated Red Blood Cells % 0.6 H Neutrophils # 8.8 H Lymphocytes # 0.7 L Monocytes # 0.7 Eosinophils # 0.1 Basophils # 0.0 Nucleated Red Blood Cells # 0.1 H Sodium Level 133 L Potassium Level 4.2 Chloride Level 102 Carbon Dioxide Level 24 Anion Gap 11 Blood Urea Nitrogen 68 H Creatinine 2.75 H Glucose Level 389 #H Calcium Level 7.7 L Total Bilirubin 0.3 Direct Bilirubin 0.00 Indirect Bilirubin 0.3 Aspartate Amino Transf (AST/SGOT) 308 H Alanine Aminotransferase (ALT/SGPT) 197 H Alkaline Phosphatase 229 H Total Protein 5.5 L Albumin 2.4 L Globulin 3.10 Albumin/Globulin Ratio 0.77 Test 10/17/16 05:11 10/17/16 08:55 10/17/16 14:04 Bedside Glucose 156 158 159 Medications Medications Current Medications Acetaminophen (Tylenol Liquid) 650 mg Q4H PRN NGT PAIN AND OR ELEVATED TEMP Last administered on 09/27/16 05:14; Admin Dose 650 MG; Start 09/21/16 at 02:00 Eye Lubricant (Artificial Tears Oph) 2 drop QID BOTH EYES Last administered on 10/17/16 13:00; Admin Dose 2 DROP; Start 09/21/16 at 09:00 Atorvastatin Calcium (Lipitor) 80 mg HS NGT Last administered on 10/14/16 20: 52; Admin Dose 80 MG; Start 09/22/16 at 21:00 Pantoprazole (Protonix Iv) 40 mg AM IV Last administered on 10/17/16 09:39; Admin Dose 40 MG; Start 09/26/16 at 09:00 Epoetin Raj (Epogen (Esrd)) 10,000 units TuThSa@17 SC Last administered on 17:02; Admin Dose 10,000 UNITS; Start 09/26/16 at 17:00 IV Flush (NS 10 ml) 10 ml PRN PRN IV IV PROTOCOL; Start 09/26/16 at 17:30 Aspirin (Aspirin) 81 mg DAILY NGT Last administered on 10/15/16 09:13; Admin Dose 81 MG; Start 09/27/16 at 09:00 Clopidogrel Bisulfate (plaVIX) 75 mg DAILY NGT Last administered on 10/15/16 09:13; Admin Dose 75 MG; Start 09/27/16 at 09:00 Morphine Sulfate (morphine) 2 mg Q4H PRN IV PAIN Last administered on 00:19; Admin Dose 2 MG; Start 09/28/16 at 16:00 Sodium Biphosphate/ Sodium Phosphate 133 ml 133 ml DAILY PRN LA CONSTIPATION Last administered on 10/09/16 00:50; Admin Dose 133 ML; Start 10/01/16 at 17:00 Norepinephrine 16 mg/Dextrose 500 ml @ 1.87 mls/hr TITRATE IV ; Start 10/04/16 at 07:00 Midazolam HCl 50 ml @ 1 mls/hr TITRATE IV Last administered on 10/07/16 09:47; Admin Dose 3 MLS/HR; Start 10/07/16 at 10:00 Dopamine HCl/ Dextrose 250 ml @ 7.5 mls/hr TITRATE IV Last administered on 10/07 11:00; Admin Dose 37.5 MLS/HR; Start 10/07/16 at 11:30 Lactobacillus Acidoph/Bulgaricus (Floranex) 1 tab TID PO Last administered on 09:12; Admin Dose 1 TAB; Start 10/09/16 at 21:00 Miscellaneous Information 1 ea NOTE XX ; Start 10/09/16 at 20:30 Glucose (Glutose) 15 gm Q15M PRN PO DECREASED GLUCOSE; Start 10/09/16 at 20:30 Glucose (Glutose) 22.5 gm Q15M PRN PO DECREASED GLUCOSE; Start 10/09/16 at 20:30 Dextrose (D50w Syringe) 25 ml Q15M PRN IV DECREASED GLUCOSE Last administered on 10/14/16 00:31; Admin Dose 25 ML; Start 10/09/16 at 20:30 Dextrose (D50w Syringe) 50 ml Q15M PRN IV DECREASED GLUCOSE Last administered on 10/11/16 17:37; Admin Dose 50 ML; Start 10/09/16 at 20:30 Glucagon (Glucagen) 1 mg Q15M PRN IM DECREASED GLUCOSE; Start 10/09/16 at 20:30 Glucose (Glutose) 15 gm Q15M PRN BUCCAL DECREASED GLUCOSE; Start 10/09/16 at 20: 30 Heparin Sodium (Porcine) (Heparin (5000 Units/0.5 ml)) 5,000 unit Q12 SC Last administered on 10/17/16 09:41; Admin Dose 5,000 UNIT; Start 10/11/16 at 21:00 Metoclopramide HCl (Reglan) 5 mg Q6 IV Last administered on 10/17/16 05:27; Admin Dose 5 MG; Start 10/14/16 at 12:00 Calcium Carbonate 500 mg 500 mg TID NGT ; Start 10/15/16 at 21:00 Dextrose/Sodium Chloride (D5-1/2ns) 1,000 ml @ 50 mls/hr Q20H IV Last administered on 10/16/16 17:53; Admin Dose 50 MLS/HR; Start 10/15/16 at 20:30 Metoprolol Tartrate (Lopressor) 12.5 mg BID PO ; Start 10/16/16 at 09:00 Insulin Glargine (Lantus) 26 unit DAILY@08 SC Last administered on 10/17/16 09 :41; Admin Dose 26 UNIT; Start 10/17/16 at 08:00 Insulin Aspart (Novolog Insulin Pen) NOVOLOG *MODERATE* ALGORI... Q4 SC Last administered on 10/17/16 14:06; Admin Dose 2 UNIT; Start 10/16/16 at 13:00 SHAMA LOPEZ MD Oct 17, 2016 14:53
[2016-10-17] MEDS ORDERED: CALCIUM GLUCONATE 10% 2 GM in SOD CHLORIDE 0.9% 100 ML IVPB ONE (17:00)
[2016-10-17] MEDS: SOD CHLORIDE 0.9% 1,000 ML IV SCH (17:12)
[2016-10-17] MEDS: EPOETIN 10000 UNITS/1 ML INJ (ESRD) SC SCH (17:14)
[2016-10-17] MEDS: ATORVASTATIN 80 MG TAB NGT SCH (20:16)
--- NOTE | 2016-10-17 23:42 | RADRPT ---
PROCEDURE: XR Chest. CLINICAL INDICATION: Nasogastric tube placement. TECHNIQUE: Portable AP view of the chest was obtained. COMPARISON: 10/08/2016 FINDINGS: Distal tip of the nasogastric tube is below the diaphragm and inferior margin of the exposure within the region of the stomach. The cardiomediastinal silhouette is mildly enlarged. Previously seen e ndotracheal tube has been removed. Interval placement of a right-sided Perma-Cath the tip projectin g at the cavoatrial junction. The left PICC seen previously is unchanged in satisfactory position t he tip also projecting at the cavoatrial junction. Bilateral compressive atelectasis of the lower l obes, pleural effusions and pulmonary vascular congestion slightly worse compared to the previous st udy. The osseous structures are intact with no evidence for acute abnormality. RPTAT:HJJR IMPRESSION: 1. Distal tip of the nasogastric tube is within the stomach. 2. Congestive heart failure pattern with compressive atelectasis of the lower lobes is worse compar ed to 10/08/2016. 3. Interval endotracheal extubation. 4. Right-sided Perma-Cath and left-sided PICC projecting in satisfactory positions at the cavoatria l junction. Physician Raul Date Time Electronically viewed and signed by Physician Raul on 10/17/2016 23:42 JR/
[2016-10-18] VITALS (12 sets, daily range): BP systolic 105–124; BP diastolic 53–59; PULSE 86–90; RESP 16–22
[2016-10-18] MEDS: SOD CHLORIDE 0.9% 1,000 ML IV SCH (00:14)
[2016-10-18] MEDS: METOCLOPRAMIDE 10 MG INJ IV SCH ×4 (00:28→17:15)
[2016-10-18] MEDS: INSULIN ASPART [NOVOLOG] 3 ML PEN SC SCH ×6 (00:31→21:23)
[2016-10-18] MEDS: IPRATROPIUM (NEB) 0.5 MG/2.5 ML AMP HHN SCH ×4 (01:02→19:49)
[2016-10-18] MEDS: LEVALBUTEROL (NEB) 1.25 MG/0.5 ML AMP HHN SCH ×4 (01:02→19:49)
[2016-10-18] MEDS: ACETYLCYSTEINE 20% 4 ML VIAL NEB SCH ×4 (01:03→19:50)
[2016-10-18] MEDS ORDERED: VITAMIN A & D 5 GM OINT PACKET TOP ONE (05:55)
--- NOTE | 2016-10-18 09:34 | CONS ---
Date/Time of Note Date/Time of Note DATE: 10/18/16 TIME: 09:30 Assessment/Plan Assessment/Plan Chief Complaint/Hosp Course 1. Acute Renal Failure due to ATN , oliguric . Her BUN is lower . I ordered hemodialysis for tomorrow . . I would recommend we continue dialysis every other day. 2. ALOC , she is improved 3. liver enzyme elevation due to anoxia , enzymes are decreasing . 4. hypotension , she is now normotensive off pressors. 5. hypocalcemia/hypoalbuminemia , calcium is higher 6. anemia , she has not had any recent GI bleeding . 7. peripheral vascular disease . 8. respiratory failure , off ventilator . 9 dysphagia , she is on tube feeding Problems: Consultation Date/Type/Reason Admit Date/Time Sep 20, 2016 at 19:21 Initial Consult Date 09/23/16 Type of Consultation: Pulmonary/critical care Referring Provider: ZANDRA ROBISON MD, [facility] 24 HR Interval Summary Free Text/Dictation She is now on telemetry floor . She is awake and responsive . Exam/Review of Systems Vital Signs Vitals Vital Signs Date Time Temp Pulse Resp B/P Pulse Ox O2 Delivery O2 Flow Rate FiO2 10/18/16 08:28 97 2.0 10/18/16 08:27 85 18 Nasal Cannula 10/18/16 07:46 97.9 108/56 10/15/16 14:50 30 Intake and Output 10/17/16 10/17/16 10/18/16 15:00 23:00 07:00 Intake Total 300 ml 390 ml 590 ml Output Total 35 ml 3335 ml 10 ml Balance 265 ml -2945 ml 580 ml Exam Constitutional: alert, oriented, well developed Psych: anxiety Respiratory: congested cough Cardiovascular: regular rate and rhythm Gastrointestinal: soft Extremities: edema Results Result Diagram: 10/17/16 0503 10/17/16 0503 Results 24 hrs Laboratory Tests Test 10/17/16 14:04 10/17/16 17:08 10/17/16 21:48 10/18/16 00:31 Bedside Glucose 159 140 141 132 Test 10/18/16 05:30 Bedside Glucose 158 Medications Medications Current Medications Acetaminophen (Tylenol Liquid) 650 mg Q4H PRN NGT PAIN AND OR ELEVATED TEMP Last administered on 09/27/16t 05:14; Admin Dose 650 MG; Start 09/21/16 at 02:00 Eye Lubricant (Artificial Tears Oph) 2 drop QID BOTH EYES Last administered on 10/17/16 20:09; Admin Dose 2 DROP; Start 09/21/16 at 09:00 Atorvastatin Calcium (Lipitor) 80 mg HS NGT Last administered on 10/17/16 20: 16; Admin Dose 80 MG; Start 09/22/16 at 21:00 Pantoprazole (Protonix Iv) 40 mg AM IV Last administered on 10/17/16 09:39; Admin Dose 40 MG; Start 09/26/16 at 09:00 Epoetin Raj (Epogen (Esrd)) 10,000 units TuThSa@17 SC Last administered on 17:14; Admin Dose 10,000 UNITS; Start 09/26/16 at 17:00 IV Flush (NS 10 ml) 10 ml PRN PRN IV IV PROTOCOL; Start 09/26/16 at 17:30 Aspirin (Aspirin) 81 mg DAILY NGT Last administered on 10/15/16 09:13; Admin Dose 81 MG; Start 09/27/16 at 09:00 Clopidogrel Bisulfate (plaVIX) 75 mg DAILY NGT Last administered on 10/15/16 09:13; Admin Dose 75 MG; Start 09/27/16 at 09:00 Morphine Sulfate (morphine) 2 mg Q4H PRN IV PAIN Last administered on 00:19; Admin Dose 2 MG; Start 09/28/16 at 16:00 Sodium Biphosphate/ Sodium Phosphate (Fleet Enema) 133 ml DAILY PRN [place] CONSTIPATION Last administered on 10/09/16 00:50; Admin Dose 133 ML; Start 10/01 at 17:00 Lactobacillus Acidoph/Bulgaricus (Floranex) 1 tab TID PO Last administered on 20:16; Admin Dose 1 TAB; Start 10/09/16 at 21:00 Miscellaneous Information 1 ea NOTE XX ; Start 10/09/16 at 20:30 Glucose (Glutose) 15 gm Q15M PRN PO DECREASED GLUCOSE; Start 10/09/16 at 20:30 Glucose (Glutose) 22.5 gm Q15M PRN PO DECREASED GLUCOSE; Start 10/09/16 at 20:30 Dextrose (D50w Syringe) 25 ml Q15M PRN IV DECREASED GLUCOSE Last administered on 10/14/16 00:31; Admin Dose 25 ML; Start 10/09/16 at 20:30 Dextrose (D50w Syringe) 50 ml Q15M PRN IV DECREASED GLUCOSE Last administered on 10/11/16 17:37; Admin Dose 50 ML; Start 10/09/16 at 20:30 Glucagon (Glucagen) 1 mg Q15M PRN IM DECREASED GLUCOSE; Start 10/09/16 at 20:30 Glucose (Glutose) 15 gm Q15M PRN BUCCAL DECREASED GLUCOSE; Start 10/09/16 at 20: 30 Heparin Sodium (Porcine) (Heparin (5000 Units/0.5 ml)) 5,000 unit Q12 SC Last administered on 10/17/16 20:22; Admin Dose 5,000 UNIT; Start 10/11/16 at 21:00 Metoclopramide HCl (Reglan) 5 mg Q6 IV Last administered on 10/18/16 06:30; Admin Dose 5 MG; Start 10/14/16 at 12:00 Calcium Carbonate (Tums) 500 mg TID NGT Last administered on 10/17/16 20:16; Admin Dose 500 MG; Start 10/15/16 at 21:00 Metoprolol Tartrate (Lopressor) 12.5 mg BID PO Last administered on 10/17/16 20:16; Admin Dose 12.5 MG; Start 10/16/16 at 09:00 Insulin Glargine (Lantus) 26 unit DAILY@08 SC Last administered on 10/17/16 09 :41; Admin Dose 26 UNIT; Start 10/17/16 at 08:00 Insulin Aspart NOVOLOG *MODERATE* ALGORI... Q4 SC Last administered on 06:29; Admin Dose 2 UNIT; Start 10/16/16 at 13:00 Sodium Chloride (NS) 1,000 ml @ 45 mls/hr [id number] IV Last administered on 10/18 00:14; Admin Dose 45 MLS/HR; Start 10/17/16 at 16:30 DAMIR MARTINEZ MD Oct 18, 2016 09:34
[2016-10-18] MEDS: PANTOPRAZOLE 40 MG INJ IV SCH (09:38)
[2016-10-18] MEDS: ARTIFICIAL TEARS 15 ML OPH BOTH EYES SCH ×4 (09:38→21:14)
[2016-10-18] MEDS: CLOPIDOGREL 75 MG TAB NGT SCH (09:38)
[2016-10-18] MEDS: LACTOBACILLUS CHEW TAB PO SCH ×2 (09:38→12:59)
[2016-10-18] MEDS: morphine 2 MG INJ IV PRN ×3 (09:38→23:26)
[2016-10-18] MEDS: CALCIUM CARBONATE 500 MG CHEW TAB NGT SCH ×2 (09:38→12:59)
[2016-10-18] MEDS: ASPIRIN 81 MG TAB NGT SCH (09:39)
[2016-10-18] MEDS: METOPROLOL 25 MG TAB PO SCH (09:39)
[2016-10-18] MEDS: HEPARIN 5,000 UNIT/0.5 ML VIAL SC SCH ×2 (09:40→21:23)
[2016-10-18] MEDS: INSULIN GLARGINE [LANtus] 3 ML PEN SC SCH (09:54)
[2016-10-18 10:28] LABS: ADD SCAN DIFF NO
[2016-10-18 10:30] LABS: ABNORMAL IP MESSAGE 1; BASOPHILS % 0.2 % (0.0-2.0); EOSINOPHILS # 0.1 10^3/ul (0.0-0.5); EOSINOPHILS % 1.1 % (0.0-7.0); HEMATOCRIT 30.6 % (37.0-47.0); HEMOGLOBIN 8.9 g/dl (12.0-16.0); LYMPHOCYTES % 9.6 % (15.0-51.0); MEAN CORPUSCULAR HEMOGLOBIN 30.4 pg (29.0-33.0); MEAN CORPUSCULAR HGB CONC 29.1 g/dl (32.0-37.0); MEAN CORPUSCULAR VOLUME 104.4 fl (82.0-101.0); MEAN PLATELET VOLUME 10.7 fl (7.4-10.4); MONOCYTE # 0.8 10^3/ul (0.3-0.9); MONOCYTES % 7.6 % (0.0-11.0); NEUTROPHILS % 80.5 % (39.0-77.0); NUCLEATED RED BLOOD CELLS # 0.1 10^3/ul (0.0-0.0); NUCLEATED RED BLOOD CELLS% 1.2 /100WBC (0.0-0.0); PLATELET COUNT 195 10^3/UL (140-415); RED BLOOD COUNT 2.93 10^6/ul (4.20-5.40); RED CELL DISTRIBUTION WIDTH 26.3 % (11.5-14.5)
[2016-10-18 10:53] LABS: ALBUMIN 2.3 g/dl (3.3-4.9); POTASSIUM 3.5 mmol/L (3.5-5.1)
[2016-10-18 10:56] LABS: CALCIUM 8.1 mg/dl (8.4-10.2); MAGNESIUM 2.1 mg/dl (1.7-2.5)
[2016-10-18 11:16] LABS: CREATININE 2.17 mg/dl (0.44-1.00)
--- NOTE | 2016-10-18 11:37 | PN ---
Date/Time of Note Date/Time of Note DATE: 10/18/16 TIME: 11:35 Assessment/Plan Lines/Catheters IV Catheter Type (from [facility]): PERMACATH Rivas in Place (from [facility]): Yes Assessment/Plan Chief Complaint/Hosp Course -Acute renal failure: S/P Emergent Maninder catheter placement.S/P Perm cath -Left Axillary vein thrombosis: It seems the has developed DVT likely related to the left PICC line. Recommend removal of the line and to start anticoagulation post perm catheter placement -Bilateral lower extremity atherosclerosis with gangrene: It seems the patient has developed bilateral toe discoloration/gangrene. it may be related to her being on pressors for some time and possible blue toe syndrome. Will likely require CTA of abdomen and pelvis for possible aortoiliac disease as a source. However considering recent renal failure will await her renal function. Arterial U/S demonstrate triphasic flow -Continue to monitor -Optimize vascular status (BP meds, diet, nutrition, exercise, sugar control, antiplatelets). -Discussed findings, plan and management with the primary service, and we will plan to notify family. -Thank you for allowing us to partake in the care of your patient. Please call with any questions. Problems: Subjective 24 Hr Interval Summary no new vascular events overnight Exam/Review of Systems Vital Signs Vitals Vital Signs Date Time Temp Pulse Resp B/P Pulse Ox O2 Delivery O2 Flow Rate FiO2 10/18/16 11:19 97.7 90 19 109/57 97 10/18/16 08:28 2.0 10/18/16 08:27 Nasal Cannula 10/15/16 14:50 30 Intake and Output 10/17/16 10/17/16 10/18/16 15:00 23:00 07:00 Intake Total 300 ml 390 ml 590 ml Output Total 35 ml 3335 ml 10 ml Balance 265 ml -2945 ml 580 ml Exam Free Text/Dictation GENERAL: awake PULMONARY: Coarse breath sounds bilaterally. CARDIOVASCULAR: S1, S2 present. ABDOMEN: Soft, nontender, nondistended. Bowel sounds positive. Large truncal obesity and pannus. LOWER EXTREMITIES: RLE: Palpable femoral pulse, nonpalpable pedal pulses. Motor, sensory intact,. Capillary refill 3 to 4 seconds.right 1st toe dry gangrene and other toes with blue/purple discoloration unchanged LLE: Palpable femoral pulse, nonpalpable pedal pulses. Motor, sensory intact, Capillary refill 3 to 4 seconds. Left 2st toe dry gangrene and other toes with blue/purple discoloration unchanged Results Result Diagram: 10/18/16 1010 10/18/16 1010 OG RODAS MD Oct 18, 2016 11:37
--- NOTE | 2016-10-18 12:26 | CONS ---
Date/Time of Note Date/Time of Note DATE: 10/18/16 TIME: 12:25 Assessment/Plan Assessment/Plan Additional Assessment/Plan Chest x-ray was reviewed from last night which is showing mild pulmonary vascular congestion. Assessment recommendations; next 1. Patient admitted with acute AK respiratory failure no successfully extubated several days ago with continually improving clinical status. 2. Generalized anasarca with interval improvement. 3. Status post severe right-sided pneumonia status post bronchoscopy. 4. End-stage renal disease, on hemodialysis. 5. General deconditioning. 6. History of hypertension, diabetes. Continue current supportive care. Consultation Date/Type/Reason Admit Date/Time Sep 20, 2016 at 19:21 Initial Consult Date 09/23/16 Type of Consultation: Pulmonary/critical care Referring Provider: ZANDRA ROBISON MD, [facility] 24 HR Interval Summary Free Text/Dictation Patient condition is stable, has been transferred to telemetry unit. Denies any shortness of breath, chest pain, abdominal pain, nausea vomiting. General exam; elderly woman, awake, alert currently in no distress. Exam/Review of Systems Vital Signs Vitals Vital Signs Date Time Temp Pulse Resp B/P Pulse Ox O2 Delivery O2 Flow Rate FiO2 10/18/16 11:19 97.7 90 19 109/57 97 10/18/16 08:28 2.0 10/18/16 08:27 Nasal Cannula 10/15/16 14:50 30 Intake and Output 10/17/16 10/17/16 10/18/16 15:00 23:00 07:00 Intake Total 300 ml 390 ml 590 ml Output Total 35 ml 3335 ml 10 ml Balance 265 ml -2945 ml 580 ml Exam HEENT exam is; supple neck, positive JVD. No lymphadenopathy. Midline trachea. No thyromegaly. Pharynx is clear. Pupils are small bilaterally. No neck masses. Chest exam is; diminished but clear breath sounds bilaterally. S1-S2 audible, no murmurs. Regular rhythm. Abdomen exam is; soft, nontender. Bowel sounds audible. Extremity exam is; 2+ anasarca. Patient has a multiple ecchymosis involving all 4 extremities. 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 Results Result Diagram: 10/18/16 1010 4/14/17 1010 Results 24 hrs Laboratory Tests Test 10/17/16 14:04 10/17/16 17:08 10/17/16 21:48 10/18/16 00:31 Bedside Glucose 159 140 141 132 Test 10/18/16 05:30 10/18/16 09:37 10/18/16 10:10 Bedside Glucose 158 158 White Blood Count 10.0 Red Blood Count 2.93 L Hemoglobin 8.9 L Hematocrit 30.6 L Mean Corpuscular Volume 104.4 H Mean Corpuscular Hemoglobin 30.4 Mean Corpuscular Hemoglobin Concent 29.1 L Red Cell Distribution Width 26.3 H Platelet Count 195 Mean Platelet Volume 10.7 H Neutrophils % 80.5 H Lymphocytes % 9.6 L Monocytes % 7.6 Eosinophils % 1.1 Basophils % 0.2 Nucleated Red Blood Cells % 1.2 H Neutrophils # 8.0 H Lymphocytes # 1.0 Monocytes # 0.8 Eosinophils # 0.1 Basophils # 0.0 Nucleated Red Blood Cells # 0.1 H Sodium Level 139 Potassium Level 3.5 Chloride Level 105 Carbon Dioxide Level 23 Anion Gap 15 Blood Urea Nitrogen 49 #H Creatinine 2.17 H Glucose Level 162 # Calcium Level 8.1 L Magnesium Level 2.1 Albumin 2.3 L Medications Medications Current Medications Acetaminophen (Tylenol Liquid) 650 mg Q4H PRN NGT PAIN AND OR ELEVATED TEMP Last administered on 09/27/16 05:14; Admin Dose 650 MG; Start 09/21/16 at 02:00 Eye Lubricant (Artificial Tears Oph) 2 drop QID BOTH EYES Last administered on 10/18/16 09:38; Admin Dose 2 DROP; Start 09/21/16 at 09:00 Atorvastatin Calcium (Lipitor) 80 mg HS NGT Last administered on 10/17/16 20: 16; Admin Dose 80 MG; Start 09/22/16 at 21:00 Pantoprazole (Protonix Iv) 40 mg AM IV Last administered on 10/18/16 09:38; Admin Dose 40 MG; Start 09/26/16 at 09:00 Epoetin Raj (Epogen (Esrd)) 10,000 units TuThSa@17 SC Last administered on 17:14; Admin Dose 10,000 UNITS; Start 09/26/16 at 17:00 IV Flush (NS 10 ml) 10 ml PRN PRN IV IV PROTOCOL; Start 09/26/16 at 17:30 Aspirin (Aspirin) 81 mg DAILY NGT Last administered on 10/18/16 09:39; Admin Dose 81 MG; Start 09/27/16 at 09:00 Clopidogrel Bisulfate (plaVIX) 75 mg DAILY NGT Last administered on 10/18/16 09:38; Admin Dose 75 MG; Start 09/27/16 at 09:00 Morphine Sulfate (morphine) 2 mg Q4H PRN IV PAIN Last administered on 09:38; Admin Dose 2 MG; Start 09/28/16 at 16:00 Sodium Biphosphate/ Sodium Phosphate (Fleet Enema) 133 ml DAILY PRN [place] CONSTIPATION Last administered on 10/09/16 00:50; Admin Dose 133 ML; Start 10/01 at 17:00 Lactobacillus Acidoph/Bulgaricus (Floranex) 1 tab TID PO Last administered on 09:38; Admin Dose 1 TAB; Start 10/09/16 at 21:00 Miscellaneous Information 1 ea NOTE XX ; Start 10/09/16 at 20:30 Glucose (Glutose) 15 gm Q15M PRN PO DECREASED GLUCOSE; Start 10/09/16 at 20:30 Glucose (Glutose) 22.5 gm Q15M PRN PO DECREASED GLUCOSE; Start 10/09/16 at 20:30 Dextrose (D50w Syringe) 25 ml Q15M PRN IV DECREASED GLUCOSE Last administered on 10/14/16 00:31; Admin Dose 25 ML; Start 10/09/16 at 20:30 Dextrose (D50w Syringe) 50 ml Q15M PRN IV DECREASED GLUCOSE Last administered on 10/11/16 17:37; Admin Dose 50 ML; Start 10/09/16 at 20:30 Glucagon (Glucagen) 1 mg Q15M PRN IM DECREASED GLUCOSE; Start 10/09/16 at 20:30 Glucose (Glutose) 15 gm Q15M PRN BUCCAL DECREASED GLUCOSE; Start 10/09/16 at 20: 30 Heparin Sodium (Porcine) (Heparin (5000 Units/0.5 ml)) 5,000 unit Q12 SC Last administered on 10/18/16 09:40; Admin Dose 5,000 UNIT; Start 10/11/16 at 21:00 Metoclopramide HCl (Reglan) 5 mg Q6 IV Last administered on 10/18/16 06:30; Admin Dose 5 MG; Start 10/14/16 at 12:00 Calcium Carbonate (Tums) 500 mg TID NGT Last administered on 10/18/16 09:38; Admin Dose 500 MG; Start 10/15/16 at 21:00 Metoprolol Tartrate (Lopressor) 12.5 mg BID PO Last administered on 10/18/16 09:39; Admin Dose 12.5 MG; Start 10/16/16 at 09:00 Insulin Glargine (Lantus) 26 unit DAILY@08 SC Last administered on 10/18/16 09 :54; Admin Dose 26 UNIT; Start 10/17/16 at 08:00 Insulin Aspart NOVOLOG *MODERATE* ALGORI... Q4 SC Last administered on 09:42; Admin Dose 2 UNIT; Start 10/16/16 at 13:00 Sodium Chloride (NS) 1,000 ml @ 45 mls/hr [id number] IV Last administered on 10/18 00:14; Admin Dose 45 MLS/HR; Start 10/17/16 at 16:30 ADIS CAMACHO Oct 18, 2016 12:26
--- NOTE | 2016-10-18 12:51 | RADRPT ---
Echocardiogram Report Patient Name: JANIA TRUONG Gender: Female Date: 1945 Study Date: 16-Oct-2016 Senior Integration Architect: Shira Rojas RDCS Location: [facility] Ref. Physician: MARLENE FULLER Quality: Good Procedures: Transthoracic echocardiogram with complete 2D, M-Mode, and doppler examination. Indications: Myocardial Infarction; r/o thrombus. 2D/M Mode Doppler Measurement Value Normal Ranges Measurement Value Normal Ranges LVIDd 2D 4.3 3.5 - 5.6 cm AV Peak Jose M 1.5 m/sec LVIDs 2D 2.6 2.1 - 4.1 cm AV Peak PG 9.0 mmHg FS 2D 38.7 % LVOT Peak Jose M 1.2 m/sec LVPWd 2D 0.9 0.6 - 1.1 cm LVOT Peak PG 6.0 mmHg IVSd 2D 1.2 0.6 - 1.1 cm MV E Peak Jose M 0.9 m/sec IVS/LVPW 2D 1.3 MV A Peak Jose M 1.1 m/sec AoR Diam 2D 2.3 2.0 - 3.7 cm MV E/A 0.7 LA/Ao 2D 1 0 - 1 MV Decel Time 190 msec EDV 2D 80.1 cm3 MV E/A 0.7 ESV 2D 18.4 cm3 TR Peak Jose M 2.8 m/sec LA Dimen 2D 2.6 2.3 - 4.0 cm TR Peak PG 32.0 mmHg RVSP 47.0 mmHg Findings Left Ventricle: Normal left ventricular systolic function. Normal left ventricular cavity size. Mild asymmetric septal hypertrophy. Ejection fraction is visually estimated at 65 %. Tissue Doppler/Mitral Doppler indices are consistent with impaired relaxation (Stage I diastolic dysfunction). These segments of the LV are akinetic inferior base segment. Right Ventricle: Normal right ventricular size. Normal right ventricular systolic function. Left Atrium: The left atrium is normal in size. Right Atrium: The right atrium is normal in size. Mitral Valve: Mitral valve leaflets appear mildly thickened. Mild mitral annular calcification. Aortic Valve: Normal appearance of the aortic valve. No significant aortic stenosis or insufficiency. Tricuspid Valve: Normal appearance of the tricuspid valve. Estimated peak PA systolic pressure 47 mmHg. There is mild tricuspid regurgitation. Pulmonic Valve: Normal pulmonic valve appearance. Pericardium: Normal pericardium with no significant pericardial effusion. Aorta: Normal aortic root. IVC: Dilated IVC without respiratory collapse consistent with elevated right atrial pressure. Conclusions Fair to good quality study. Normal left ventricular systolic function with focal basal inferior akinesis. Grade 1 diastolic dysfunction. Mild tricuspid regurgitation with moderate pulmonary hypertension. Dilated IVC suggestive of elevated right atrial pressure. Electronically Signed By: Marlene Fuller 18-Oct-2016 12:50:56 -0700 Patient Name: JANIA TRUONG Study Date: 16-Oct-2016 [id number]
[2016-10-19] VITALS (19 sets, daily range): BP systolic 106–126; BP diastolic 51–61; PULSE 70–89; RESP 16–20
[2016-10-19] MEDS: LACTOBACILLUS CHEW TAB PO SCH ×4 (00:01→21:26)
[2016-10-19] MEDS: ATORVASTATIN 80 MG TAB NGT SCH ×2 (00:01→21:26)
[2016-10-19] MEDS: CALCIUM CARBONATE 500 MG CHEW TAB NGT SCH ×4 (00:01→21:26)
[2016-10-19] MEDS: METOPROLOL 25 MG TAB PO SCH ×3 (00:02→21:26)
[2016-10-19] MEDS: METOCLOPRAMIDE 10 MG INJ IV SCH ×4 (00:03→17:53)
[2016-10-19] MEDS: LEVALBUTEROL (NEB) 1.25 MG/0.5 ML AMP HHN SCH ×4 (01:16→19:29)
[2016-10-19] MEDS: ACETYLCYSTEINE 20% 4 ML VIAL NEB SCH ×4 (01:17→19:29)
[2016-10-19] MEDS: IPRATROPIUM (NEB) 0.5 MG/2.5 ML AMP HHN SCH ×4 (01:17→19:29)
[2016-10-19] MEDS: INSULIN ASPART [NOVOLOG] 3 ML PEN SC SCH ×6 (02:24→21:00)
[2016-10-19] MEDS: morphine 2 MG INJ IV PRN (05:49)
--- NOTE | 2016-10-19 09:07 | CONS ---
Date/Time of Note Date/Time of Note DATE: 10/19/16 TIME: 09:03 Assessment/Plan Assessment/Plan Problems: (1) ST elevation myocardial infarction (STEMI) Status: Acute Comment: hemodyn stable now... denies any cp or sob (2) Acute on chronic renal failure Comment: for HD today, via Rt chest catheter Consultation Date/Type/Reason Admit Date/Time Sep 20, 2016 at 19:21 Initial Consult Date 09/23/16 Type of Consultation: neph Referring Provider: ZANDRA ROBISON MD, [facility] 24 HR Interval Summary Free Text/Dictation pt feels is getting a bit srtonger daily.. no cp or sob currently Exam/Review of Systems Vital Signs Vitals Vital Signs Date Time Temp Pulse Resp B/P Pulse Ox O2 Delivery O2 Flow Rate FiO2 10/19/16 08:28 87 10/19/16 07:44 97.6 20 113/53 98 10/19/16 01:26 Nasal Cannula 2.0 10/15/16 14:50 30 Exam Constitutional: alert Psych: no complaints Eyes: nl conjunctiva, nl sclera Respiratory: clear to auscultation Cardiovascular: regular rate and rhythm Extremities: normal pulses (boots in place bilat) Results Result Diagram: 10/18/16 1010 10/18/16 1010 Results 24 hrs Laboratory Tests Test 10/18/16 09:37 10/18/16 10:10 10/18/16 12:57 10/18/16 17:15 Bedside Glucose 158 152 135 White Blood Count 10.0 Red Blood Count 2.93 L Hemoglobin 8.9 L Hematocrit 30.6 L Mean Corpuscular Volume 104.4 H Mean Corpuscular Hemoglobin 30.4 Mean Corpuscular Hemoglobin Concent 29.1 L Red Cell Distribution Width 26.3 H Platelet Count 195 Mean Platelet Volume 10.7 H Neutrophils % 80.5 H Lymphocytes % 9.6 L Monocytes % 7.6 Eosinophils % 1.1 Basophils % 0.2 Nucleated Red Blood Cells % 1.2 H Neutrophils # 8.0 H Lymphocytes # 1.0 Monocytes # 0.8 Eosinophils # 0.1 Basophils # 0.0 Nucleated Red Blood Cells # 0.1 H Sodium Level 139 Potassium Level 3.5 Chloride Level 105 Carbon Dioxide Level 23 Anion Gap 15 Blood Urea Nitrogen 49 #H Creatinine 2.17 H Glucose Level 162 # Calcium Level 8.1 L Magnesium Level 2.1 Albumin 2.3 L Test 10/18/16 21:20 10/19/16 02:20 10/19/16 05:56 Bedside Glucose 172 155 153 Medications Medications Current Medications Acetaminophen (Tylenol Liquid) 650 mg Q4H PRN NGT PAIN AND OR ELEVATED TEMP Last administered on 09/27/16 05:14; Admin Dose 650 MG; Start 09/21/16 at 02:00 Eye Lubricant (Artificial Tears Oph) 2 drop QID BOTH EYES Last administered on 10/18/16 21:14; Admin Dose 2 DROP; Start 09/21/16 at 09:00 Atorvastatin Calcium (Lipitor) 80 mg HS NGT Last administered on 10/19/16 00: 01; Admin Dose 80 MG; Start 09/22/16 at 21:00 Pantoprazole (Protonix Iv) 40 mg AM IV Last administered on 10/18/16 09:38; Admin Dose 40 MG; Start 09/26/16 at 09:00 Epoetin Raj (Epogen (Esrd)) 10,000 units TuThSa@17 SC Last administered on 17:14; Admin Dose 10,000 UNITS; Start 09/26/16 at 17:00 IV Flush (NS 10 ml) 10 ml PRN PRN IV IV PROTOCOL; Start 09/26/16 at 17:30 Aspirin (Aspirin) 81 mg DAILY NGT Last administered on 10/18/16 09:39; Admin Dose 81 MG; Start 09/27/16 at 09:00 Clopidogrel Bisulfate (plaVIX) 75 mg DAILY NGT Last administered on 10/18/16 09:38; Admin Dose 75 MG; Start 09/27/16 at 09:00 Morphine Sulfate (morphine) 2 mg Q4H PRN IV PAIN Last administered on 05:49; Admin Dose 2 MG; Start 09/28/16 at 16:00 Sodium Biphosphate/ Sodium Phosphate (Fleet Enema) 133 ml DAILY PRN [place] CONSTIPATION Last administered on 10/09/16 00:50; Admin Dose 133 ML; Start 10/01 at 17:00 Lactobacillus Acidoph/Bulgaricus (Floranex) 1 tab TID PO Last administered on 00:01; Admin Dose 1 TAB; Start 10/09/16 at 21:00 Miscellaneous Information 1 ea NOTE XX ; Start 10/09/16 at 20:30 Glucose (Glutose) 15 gm Q15M PRN PO DECREASED GLUCOSE; Start 10/09/16 at 20:30 Glucose (Glutose) 22.5 gm Q15M PRN PO DECREASED GLUCOSE; Start 10/09/16 at 20:30 Dextrose (D50w Syringe) 25 ml Q15M PRN IV DECREASED GLUCOSE Last administered on 10/14/16 00:31; Admin Dose 25 ML; Start 10/09/16 at 20:30 Dextrose (D50w Syringe) 50 ml Q15M PRN IV DECREASED GLUCOSE Last administered on 10/11/16 17:37; Admin Dose 50 ML; Start 10/09/16 at 20:30 Glucagon (Glucagen) 1 mg Q15M PRN IM DECREASED GLUCOSE; Start 10/09/16 at 20:30 Glucose (Glutose) 15 gm Q15M PRN BUCCAL DECREASED GLUCOSE; Start 10/09/16 at 20: 30 Heparin Sodium (Porcine) (Heparin (5000 Units/0.5 ml)) 5,000 unit Q12 SC Last administered on 10/18/16 21:23; Admin Dose 5,000 UNIT; Start 10/11/16 at 21:00 Metoclopramide HCl (Reglan) 5 mg Q6 IV Last administered on 10/19/16 06:11; Admin Dose 5 MG; Start 10/14/16 at 12:00 Calcium Carbonate (Tums) 500 mg TID NGT Last administered on 10/19/16 00:01; Admin Dose 500 MG; Start 10/15/16 at 21:00 Metoprolol Tartrate (Lopressor) 12.5 mg BID PO Last administered on 10/19/16 00:02; Admin Dose 12.5 MG; Start 10/16/16 at 09:00 Insulin Glargine (Lantus) 26 unit DAILY@08 SC Last administered on 10/18/16 09 :54; Admin Dose 26 UNIT; Start 10/17/16 at 08:00 Insulin Aspart NOVOLOG *MODERATE* ALGORI... Q4 SC Last administered on 05:58; Admin Dose 2 UNIT; Start 10/16/16 at 13:00 Sodium Chloride (NS) 1,000 ml @ 45 mls/hr [id number] IV Last administered on 10/18t 00:14; Admin Dose 45 MLS/HR; Start 10/17/16 at 16:30 ROGELIO FELIX MD Oct 19, 2016 09:07
[2016-10-19] MEDS: PANTOPRAZOLE 40 MG INJ IV SCH (09:33)
[2016-10-19] MEDS: ASPIRIN 81 MG TAB NGT SCH (09:33)
[2016-10-19] MEDS: ARTIFICIAL TEARS 15 ML OPH BOTH EYES SCH ×4 (09:33→21:25)
[2016-10-19] MEDS: CLOPIDOGREL 75 MG TAB NGT SCH (09:33)
[2016-10-19] MEDS: HEPARIN 5,000 UNIT/0.5 ML VIAL SC SCH ×2 (09:35→21:28)
[2016-10-19] MEDS: INSULIN GLARGINE [LANtus] 3 ML PEN SC SCH (09:38)
[2016-10-19] MEDS: SOD CHLORIDE 0.9% 1,000 ML IV SCH (12:58)
--- NOTE | 2016-10-19 16:24 | PN ---
DATE: 10/19/2016 SUBJECTIVE: Patient is awake, receiving a respiratory treatment, able to nod or shake her head in response to inquiries. Denies any discomfort at this time. OBJECTIVE: VITAL SIGNS: Temperature 98.2, blood pressure 126/61, pulse of 80, respiration rate 20, O2 saturation 96% to 99% on 2 liters nasal cannula. HEENT: Pupils are equally round and reactive to light. Oropharynx clear. LUNGS: Clear to auscultation anteriorly. CARDIAC: Regular rate and rhythm. Normal S1, S2. ABDOMEN: Active bowel sounds, soft, nondistended, nontender. EXTREMITIES: Bilateral upper extremity and lower extremities edematous. LABORATORY DATA: Blood sugars today has been 153, 144 and 147 serially. ASSESSMENT AND PLAN: 1. Status post ST elevation myocardial infarction, improving gradually, but has multiple complications due to a prolonged period of cardiogenic shock. 2. Renal failure, status post permanent catheter placement. Will be receiving hemodialysis. 3. Left axillary vein deep vein thrombosis. Plan on starting Eliquis if she has no obvious bleeding from the PermCath site. 4. Toes gangrene. We need to check with podiatry in [facility] for further treatment. Dictated By: SONALI WALKER MD DP/JERROD Conf#: [id number] DID#: [id number]
[2016-10-19] MEDS: EPOETIN 10000 UNITS/1 ML INJ (ESRD) SC SCH (17:53)
[2016-10-19] MEDS: LORAZEPAM 0.5 MG TAB PO PRN (18:20)
[2016-10-20] VITALS (11 sets, daily range): BP systolic 90–119; BP diastolic 51–80; PULSE 77–91; RESP 12–20
[2016-10-20] MEDS: INSULIN ASPART [NOVOLOG] 3 ML PEN SC SCH ×6 (01:00→21:00)
[2016-10-20] MEDS: METOCLOPRAMIDE 10 MG INJ IV SCH ×4 (01:25→18:33)
[2016-10-20] MEDS: LEVALBUTEROL (NEB) 1.25 MG/0.5 ML AMP HHN SCH ×4 (01:58→19:41)
[2016-10-20] MEDS: IPRATROPIUM (NEB) 0.5 MG/2.5 ML AMP HHN SCH ×4 (01:58→19:41)
[2016-10-20] MEDS: ACETYLCYSTEINE 20% 4 ML VIAL NEB SCH ×4 (01:59→19:41)
[2016-10-20] MEDS: LACTOBACILLUS CHEW TAB PO SCH ×3 (09:03→21:26)
[2016-10-20] MEDS: ARTIFICIAL TEARS 15 ML OPH BOTH EYES SCH ×4 (09:03→21:26)
[2016-10-20] MEDS: CALCIUM CARBONATE 500 MG CHEW TAB NGT SCH ×3 (09:03→21:26)
[2016-10-20] MEDS: ASPIRIN 81 MG TAB NGT SCH (09:03)
[2016-10-20] MEDS: CLOPIDOGREL 75 MG TAB NGT SCH (09:03)
[2016-10-20] MEDS: METOPROLOL 25 MG TAB PO SCH ×2 (09:04→21:27)
[2016-10-20] MEDS: HEPARIN 5,000 UNIT/0.5 ML VIAL SC SCH ×2 (09:05→21:29)
[2016-10-20] MEDS: INSULIN GLARGINE [LANtus] 3 ML PEN SC SCH (09:08)
[2016-10-20] MEDS: PANTOPRAZOLE 40 MG INJ IV SCH (09:09)
--- NOTE | 2016-10-20 09:26 | CONS ---
Date/Time of Note Date/Time of Note DATE: 10/20/16 TIME: 09:23 Assessment/Plan Assessment/Plan Problems: (1) Edema Comment: will order HD again tomorrow for increased UF (2) ST elevation myocardial infarction (STEMI) Status: Acute Comment: hemodyn stable, albeit still quite weak (3) Acute on chronic renal failure Comment: for HD in AM with UF Consultation Date/Type/Reason Admit Date/Time Sep 20, 2016 at 19:21 Initial Consult Date 09/23/16 Type of Consultation: neph Referring Provider: ZANDRA ROBISON MD, [facility] 24 HR Interval Summary Free Text/Dictation weak, tired.. but no distress Exam/Review of Systems Vital Signs Vitals Vital Signs Date Time Temp Pulse Resp B/P Pulse Ox O2 Delivery O2 Flow Rate FiO2 10/20/16 08:49 91 10/20/16 07:31 20 97 Nasal Cannula 2.0 10/20/16 07:08 97.7 107/56 10/19/16 15:15 28 Intake and Output 10/19/16 10/19/16 10/20/16 15:00 23:00 07:00 Intake Total 890 ml 390 ml Output Total 3520 ml 100 ml 300 ml Balance -2630 ml -100 ml 90 ml Exam Constitutional: alert Psych: no complaints Head: normocephalic Eyes: nl conjunctiva Neck: supple Respiratory: clear to auscultation Cardiovascular: regular rate and rhythm Gastrointestinal: soft Extremities: edema (2-3+) Results Result Diagram: 10/18/16 1010 10/18/16 1010 Results 24 hrs Laboratory Tests Test 10/19/16 09:30 10/19/16 12:37 10/19/16 17:52 10/19/16 21:16 Bedside Glucose 144 147 108 140 Test 10/20/16 06:09 Bedside Glucose 125 Medications Medications Current Medications Acetaminophen (Tylenol Liquid) 650 mg Q4H PRN NGT PAIN AND OR ELEVATED TEMP Last administered on 09/27/16 05:14; Admin Dose 650 MG; Start 09/21/16 at 02:00 Eye Lubricant (Artificial Tears Oph) 2 drop QID BOTH EYES Last administered on 10/20/16 09:03; Admin Dose 2 DROP; Start 09/21/16 at 09:00 Atorvastatin Calcium (Lipitor) 80 mg HS NGT Last administered on 10/19/16 21: 26; Admin Dose 80 MG; Start 09/22/16 at 21:00 Pantoprazole (Protonix Iv) 40 mg AM IV Last administered on 10/20/16 09:09; Admin Dose 40 MG; Start 09/26/16 at 09:00 Epoetin Raj (Epogen (Esrd)) 10,000 units TuThSa@17 SC Last administered on 17:53; Admin Dose 10,000 UNITS; Start 09/26/16 at 17:00 IV Flush (NS 10 ml) 10 ml PRN PRN IV IV PROTOCOL; Start 09/26/16 at 17:30 Aspirin (Aspirin) 81 mg DAILY NGT Last administered on 10/20/16 09:03; Admin Dose 81 MG; Start 09/27/16 at 09:00 Clopidogrel Bisulfate (plaVIX) 75 mg DAILY NGT Last administered on 10/20/16 09:03; Admin Dose 75 MG; Start 09/27/16 at 09:00 Morphine Sulfate (morphine) 2 mg Q4H PRN IV PAIN Last administered on 05:49; Admin Dose 2 MG; Start 09/28/16 at 16:00 Sodium Biphosphate/ Sodium Phosphate (Fleet Enema) 133 ml DAILY PRN [place] CONSTIPATION Last administered on 10/09/16 00:50; Admin Dose 133 ML; Start 10/01 at 17:00 Lactobacillus Acidoph/Bulgaricus (Floranex) 1 tab TID PO Last administered on 09:03; Admin Dose 1 TAB; Start 10/09/16 at 21:00 Miscellaneous Information 1 ea NOTE XX ; Start 10/09/16 at 20:30 Glucose (Glutose) 15 gm Q15M PRN PO DECREASED GLUCOSE; Start 10/09/16 at 20:30 Glucose (Glutose) 22.5 gm Q15M PRN PO DECREASED GLUCOSE; Start 10/09/16 at 20:30 Dextrose (D50w Syringe) 25 ml Q15M PRN IV DECREASED GLUCOSE Last administered on 10/14/16 00:31; Admin Dose 25 ML; Start 10/09/16 at 20:30 Dextrose (D50w Syringe) 50 ml Q15M PRN IV DECREASED GLUCOSE Last administered on 10/11/16 17:37; Admin Dose 50 ML; Start 10/09/16 at 20:30 Glucagon (Glucagen) 1 mg Q15M PRN IM DECREASED GLUCOSE; Start 10/09/16 at 20:30 Glucose (Glutose) 15 gm Q15M PRN BUCCAL DECREASED GLUCOSE; Start 10/09/16 at 20: 30 Heparin Sodium (Porcine) (Heparin (5000 Units/0.5 ml)) 5,000 unit Q12 SC Last administered on 10/20/16 09:05; Admin Dose 5,000 UNIT; Start 10/11/16 at 21:00 Metoclopramide HCl (Reglan) 5 mg Q6 IV Last administered on 10/20/16 06:34; Admin Dose 5 MG; Start 10/14/16 at 12:00 Calcium Carbonate (Tums) 500 mg TID NGT Last administered on 10/20/16 09:03; Admin Dose 500 MG; Start 10/15/16 at 21:00 Metoprolol Tartrate (Lopressor) 12.5 mg BID PO Last administered on 10/20/16 09:04; Admin Dose 12.5 MG; Start 10/16/16 at 09:00 Insulin Glargine (Lantus) 26 unit DAILY@08 SC Last administered on 10/20/16 09 :08; Admin Dose 26 UNIT; Start 10/17/16 at 08:00 Insulin Aspart NOVOLOG *MODERATE* ALGORI... Q4 SC Last administered on 13:35; Admin Dose 3 UNIT; Start 10/16/16 at 13:00 Sodium Chloride (NS) 1,000 ml @ 45 mls/hr [id number] IV Last administered on 10/18 00:14; Admin Dose 45 MLS/HR; Start 10/17/16 at 16:30 Lorazepam (Ativan) 0.5 mg TID PRN PO ANXIETY Last administered on 10/19/16 18: 20; Admin Dose 0.5 MG; Start 10/19/16 at 17:30 ROGELIO FELIX MD Oct 20, 2016 09:26
[2016-10-20] MEDS: SOD CHLORIDE 0.9% 1,000 ML IV SCH ×2 (11:12→20:23)
--- NOTE | 2016-10-20 11:15 | PN ---
Date/Time of Note Date/Time of Note DATE: 10/20/16 TIME: 11:05 Assessment/Plan VTE Prophylaxis VTE Prophylaxis Intervention: SCD's Lines/Catheters IV Catheter Type (from [facility]): Permacath Urinary Cath still in place: No Assessment/Plan Chief Complaint/Hosp Course Patient admitted with stemi of inferior wall, with long recovery process. Problems: Assessment/Plan STEMI of inferior wall, post pci and placement of two drug-eluting stents to the RCA Respiratory failure, extubated several days ago after prolonged mechanical ventilation paroxysmal atrial fib present earlier in admission in the setting of dopamine, now maintaining nsr with pvc's Acute renal failure, ATN, requiring continued dialysis Blue toes bilaterally, most likely secondary to pressor use Upper extremity DVT Recommendations: If anticoagulation required for DVT, warfarin is indicated, though there is in- vitro (not in vivo) data to suggest that Eliquis or Xarelto could be reasonable. Regardless of which anticoagulant is chosen, would stop aspirin and continue anticoagulant with clopidogrel. This strategy should be safe as patient's drug-eluting stents were placed a month ago. Continuing triple therapy (asa, clopidogrel, AND an anticoagulant) will greatly increase risk of bleeding Atorvastatin at high dose Will increase metoprolol as blood pressure quite stable, given recent GA Dialysis as per nephrology Patient quite weak, so PT/rehab quite important It is reasonable to transfer this patient to a non-monitored floor. Subjective 24 Hr Interval Summary Free Text/Dictation Patient sitting up in bed, nodding yes and no appropriately, family at bedside. Constitutional: no complaints Exam/Review of Systems Vital Signs Vitals Vital Signs Date Time Temp Pulse Resp B/P Pulse Ox O2 Delivery O2 Flow Rate FiO2 10/20/16 08:49 91 10/20/16 07:31 20 97 Nasal Cannula 2.0 10/20/16 07:08 97.7 107/56 10/19/16 15:15 28 Intake and Output 10/19/16 10/19/16 10/20/16 15:00 23:00 07:00 Intake Total 890 ml 390 ml Output Total 3520 ml 100 ml 300 ml Balance -2630 ml -100 ml 90 ml Exam Constitutional: alert, frail Psych: nl mood/affect Head: atraumatic, normocephalic Eyes: nl conjunctiva, nl sclera ENMT: mucosa pink and moist Neck: No bruits Respiratory: clear to auscultation, normal air movement Cardiovascular: regular rate and rhythm, No murmurs/extra sounds Gastrointestinal: soft Extremities: edema (moderate pitting edema in both legs), other (blue toes) Neurological: nl mental status Skin: nl turgor Results Result Diagram: 10/18/16 1010 10/18/16 1010 Results 24 hrs Laboratory Tests Test 10/19/16 12:37 10/19/16 17:52 10/19/16 21:16 10/20/16 06:09 Bedside Glucose 147 108 140 125 Test 10/20/16 09:02 Bedside Glucose 110 Medications Medications Current Medications Acetaminophen (Tylenol Liquid) 650 mg Q4H PRN NGT PAIN AND OR ELEVATED TEMP Last administered on 09/27/16 05:14; Admin Dose 650 MG; Start 09/21/16 at 02:00 Eye Lubricant (Artificial Tears Oph) 2 drop QID BOTH EYES Last administered on 10/20/16 09:03; Admin Dose 2 DROP; Start 09/21/16 at 09:00 Atorvastatin Calcium (Lipitor) 80 mg HS NGT Last administered on 10/19/16 21: 26; Admin Dose 80 MG; Start 09/22/16 at 21:00 Pantoprazole (Protonix Iv) 40 mg AM IV Last administered on 10/20/16 09:09; Admin Dose 40 MG; Start 09/26/16 at 09:00 Epoetin Raj (Epogen (Esrd)) 10,000 units TuThSa@17 SC Last administered on 17:53; Admin Dose 10,000 UNITS; Start 09/26/16 at 17:00 IV Flush (NS 10 ml) 10 ml PRN PRN IV IV PROTOCOL; Start 09/26/16 at 17:30 Aspirin (Aspirin) 81 mg DAILY NGT Last administered on 10/20/16 09:03; Admin Dose 81 MG; Start 09/27/16 at 09:00 Clopidogrel Bisulfate (plaVIX) 75 mg DAILY NGT Last administered on 10/20/16 09:03; Admin Dose 75 MG; Start 09/27/16 at 09:00 Morphine Sulfate (morphine) 2 mg Q4H PRN IV PAIN Last administered on 05:49; Admin Dose 2 MG; Start 09/28/16 at 16:00 Sodium Biphosphate/ Sodium Phosphate (Fleet Enema) 133 ml DAILY PRN [place] CONSTIPATION Last administered on 10/09/16 00:50; Admin Dose 133 ML; Start 10/01 at 17:00 Lactobacillus Acidoph/Bulgaricus (Floranex) 1 tab TID PO Last administered on 09:03; Admin Dose 1 TAB; Start 10/09/16 at 21:00 Miscellaneous Information 1 ea NOTE XX ; Start 10/09/16 at 20:30 Glucose (Glutose) 15 gm Q15M PRN PO DECREASED GLUCOSE; Start 10/09/16 at 20:30 Glucose (Glutose) 22.5 gm Q15M PRN PO DECREASED GLUCOSE; Start 10/09/16 at 20:30 Dextrose (D50w Syringe) 25 ml Q15M PRN IV DECREASED GLUCOSE Last administered on 10/14/16 00:31; Admin Dose 25 ML; Start 10/09/16 at 20:30 Dextrose (D50w Syringe) 50 ml Q15M PRN IV DECREASED GLUCOSE Last administered on 10/11/16 17:37; Admin Dose 50 ML; Start 10/09/16 at 20:30 Glucagon (Glucagen) 1 mg Q15M PRN IM DECREASED GLUCOSE; Start 10/09/16 at 20:30 Glucose (Glutose) 15 gm Q15M PRN BUCCAL DECREASED GLUCOSE; Start 10/09/16 at 20: 30 Heparin Sodium (Porcine) (Heparin (5000 Units/0.5 ml)) 5,000 unit Q12 SC Last administered on 10/20/16 09:05; Admin Dose 5,000 UNIT; Start 10/11/16 at 21:00 Metoclopramide HCl (Reglan) 5 mg Q6 IV Last administered on 10/20/16 06:34; Admin Dose 5 MG; Start 10/14/16 at 12:00 Calcium Carbonate (Tums) 500 mg TID NGT Last administered on 10/20/16 09:03; Admin Dose 500 MG; Start 10/15/16 at 21:00 Metoprolol Tartrate (Lopressor) 12.5 mg BID PO Last administered on 10/20/16 09:04; Admin Dose 12.5 MG; Start 10/16/16 at 09:00 Insulin Glargine (Lantus) 26 unit DAILY@08 SC Last administered on 10/20/16 09 :08; Admin Dose 26 UNIT; Start 10/17/16 at 08:00 Insulin Aspart NOVOLOG *MODERATE* ALGORI... Q4 SC Last administered on 13:35; Admin Dose 3 UNIT; Start 10/16/16 at 13:00 Sodium Chloride (NS) 1,000 ml @ 45 mls/hr [id number] IV Last administered on 10/18 00:14; Admin Dose 45 MLS/HR; Start 10/17/16 at 16:30 Lorazepam (Ativan) 0.5 mg TID PRN PO ANXIETY Last administered on 10/19/16 18: 20; Admin Dose 0.5 MG; Start 10/19/16 at 17:30 Procedures Procedures telemetry demonstrates normal sinus rhythm BENJAMIN OSEGUERA Oct 20, 2016 11:15
[2016-10-20] MEDS: LORAZEPAM 0.5 MG TAB PO PRN ×2 (14:13→21:27)
[2016-10-20] MEDS ORDERED: NACL 3% FOR INHALATION 15 ML NEBU NEB ONE (16:30)
[2016-10-20] MEDS: WARFARIN 3 MG TAB GTB SCH (18:33)
--- NOTE | 2016-10-20 18:43 | PN ---
DATE: 10/20/2016 SUBJECTIVE: The patient is asleep, but arousable, able to communicate in whispers. Patient's daughter reports episodic anxiety attacks relieved with Ativan, and nursing reports wet sounding cough, but inability to clear sputum. OBJECTIVE: VITAL SIGNS: Temperature 97.7, blood pressure 107/56, pulse of 84, respiration rate 20, O2 saturation 96% on 2 liters nasal cannula. HEENT: Pupils equally round, reactive to light. Nasogastric tube intact. Oropharynx clear. CHEST: Lungs are clear to auscultation anteriorly. CARDIAC: Regular rate and rhythm. ABDOMEN: Active bowel sounds, soft, nondistended, nontender. EXTREMITIES: Bilateral upper extremity edema, left greater than right. Bilateral lower extremities notable for black right great toe and left second toe. LABORATORY DATA: Blood sugar has been running between 110 to 125. ASSESSMENT AND PLAN: 1. Status post ST elevation myocardial infarction of the inferior wall with multiorgan failure and complications. Appreciate Dr. Fuller's recommendation for anticoagulation. I will start patient on Coumadin and discontinue aspirin. We will continue Plavix. 2. Anxiety. Continue Ativan as needed. 3. Left upper extremity DVT. Start Coumadin per cardiology's recommendation, for 3 to 6 months with a recheck of venous Doppler after 3 months. 4. Gangrenous toes. Recent arterial Dopplers of the lower extremities were within normal limits. We will consult podiatry from [facility] regarding podiatric care of the feet. 5. Renal failure. Continue hemodialysis per nephrology. DISPOSITION: At this time, we will try to transfer patient to a non-monitored floor and continue speech therapy, occupational therapy and physical therapy. Dictated By: SONALI WALKER MD DP/JERROD Conf#: [id number] DID#: [id number] MAYO
[2016-10-20] MEDS: ATORVASTATIN 80 MG TAB NGT SCH (21:26)
[2016-10-21] VITALS (12 sets, daily range): BP systolic 90–131; BP diastolic 52–61; PULSE 78–92; RESP 18
[2016-10-21] MEDS: METOCLOPRAMIDE 10 MG INJ IV SCH ×5 (00:41→23:51)
[2016-10-21] MEDS: INSULIN ASPART [NOVOLOG] 3 ML PEN SC SCH ×6 (01:00→21:12)
[2016-10-21] MEDS: LEVALBUTEROL (NEB) 1.25 MG/0.5 ML AMP HHN SCH ×4 (01:53→20:51)
[2016-10-21] MEDS: IPRATROPIUM (NEB) 0.5 MG/2.5 ML AMP HHN SCH ×4 (01:53→20:52)
[2016-10-21] MEDS: ACETYLCYSTEINE 20% 4 ML VIAL NEB SCH ×4 (01:54→20:52)
[2016-10-21] MEDS: morphine 2 MG INJ IV PRN ×3 (03:21→12:10)
[2016-10-21 06:04] LABS: ADD SCAN DIFF NO
[2016-10-21 06:16] LABS: INR 1.05; PROTIME 13.7 Sec (12.2-14.2); PT RATIO 1.1
[2016-10-21 06:17] LABS: ABNORMAL IP MESSAGE 1; BASOPHILS % 0.2 % (0.0-2.0); EOSINOPHILS # 0.1 10^3/ul (0.0-0.5); HEMATOCRIT 31.5 % (37.0-47.0); HEMOGLOBIN 9.2 g/dl (12.0-16.0); LYMPHOCYTES # 0.8 10^3/ul (0.8-2.9); MEAN CORPUSCULAR HEMOGLOBIN 30.3 pg (29.0-33.0); MEAN CORPUSCULAR HGB CONC 29.2 g/dl (32.0-37.0); MEAN CORPUSCULAR VOLUME 103.6 fl (82.0-101.0); MEAN PLATELET VOLUME 11.4 fl (7.4-10.4); MONOCYTE # 0.7 10^3/ul (0.3-0.9); MONOCYTES % 6.8 % (0.0-11.0); NEUTROPHIL # 8.3 10^3/ul (1.6-7.5); NEUTROPHILS % 82.5 % (39.0-77.0); NUCLEATED RED BLOOD CELLS # 0.1 10^3/ul (0.0-0.0); NUCLEATED RED BLOOD CELLS% 0.8 /100WBC (0.0-0.0); PARTIAL THROMBOPLASTIN TIME 29.9 Sec (25.0-35.0); PLATELET COUNT 197 10^3/UL (140-415); RED BLOOD COUNT 3.04 10^6/ul (4.20-5.40); WHITE BLOOD COUNT 10.1 10^3/ul (4.8-10.8)
[2016-10-21 06:29] LABS: ALBUMIN 2.5 g/dl (3.3-4.9); ALBUMIN/GLOBULIN RATIO 0.71; BILIRUBIN,INDIRECT 0.2 mg/dl (0-1.1); BILIRUBIN,TOTAL 0.2 mg/dl (0.2-1.3); CALCIUM 7.9 mg/dl (8.4-10.2); CREATININE 2.59 mg/dl (0.44-1.00); POTASSIUM 4.3 mmol/L (3.5-5.1)
[2016-10-21] MEDS: PANTOPRAZOLE 40 MG INJ IV SCH (07:43)
[2016-10-21] MEDS: CALCIUM CARBONATE 500 MG CHEW TAB NGT SCH ×3 (07:44→21:09)
[2016-10-21] MEDS: LACTOBACILLUS CHEW TAB PO SCH ×3 (07:44→21:09)
[2016-10-21] MEDS: CLOPIDOGREL 75 MG TAB NGT SCH (07:44)
[2016-10-21] MEDS: METOPROLOL 25 MG TAB PO SCH ×2 (07:44→21:10)
[2016-10-21] MEDS: ARTIFICIAL TEARS 15 ML OPH BOTH EYES SCH ×4 (07:45→21:08)
[2016-10-21] MEDS: INSULIN GLARGINE [LANtus] 3 ML PEN SC SCH (08:02)
[2016-10-21] MEDS: HEPARIN 5,000 UNIT/0.5 ML VIAL SC SCH ×2 (08:02→21:13)
[2016-10-21] MEDS: SOD CHLORIDE 0.9% 1,000 ML IV SCH ×2 (09:26→19:50)
--- NOTE | 2016-10-21 17:39 | CONS ---
Date/Time of Note Date/Time of Note DATE: 10/21/16 TIME: 17:31 Assessment/Plan Assessment/Plan Chief Complaint/Hosp Course 1. Acute Renal Failure due to ATN , oliguric . Her BUN is lower . she had hemodialysis today , 2.6 liters removed . . I would recommend we continue dialysis every other day. 2. ALOC , she is improved 3. liver enzyme elevation due to anoxia , enzymes are decreasing . 4. hypotension , she is now normotensive off pressors. 5. hypocalcemia/hypoalbuminemia , calcium is higher 6. anemia , she has not had any recent GI bleeding . 7. peripheral vascular disease . 8. respiratory failure , off ventilator . 9 dysphagia , she is on tube feeding Problems: Consultation Date/Type/Reason Admit Date/Time Sep 20, 2016 at 19:21 Initial Consult Date 09/23/16 Type of Consultation: neph Referring Provider: ZANDRA ROBISON MD, [facility] 24 HR Interval Summary Free Text/Dictation She is sleeping but rouses easily to verbal stimuli Constitutional: no complaints Exam/Review of Systems Vital Signs Vitals Vital Signs Date Time Temp Pulse Resp B/P Pulse Ox O2 Delivery O2 Flow Rate FiO2 10/21/16 12:52 3.0 10/21/16 12:52 80 18 93 Nasal Cannula 10/21/16 07:30 98.4 101/55 10/19/16 15:15 28 Intake and Output 10/20/16 10/20/16 10/21/16 15:00 23:00 07:00 Intake Total 360 ml 705 ml Output Total 100 ml 100 ml Balance 260 ml 605 ml Exam Constitutional: non-verbal Respiratory: congested cough Cardiovascular: regular rate and rhythm Gastrointestinal: soft Extremities: edema Results Result Diagram: 10/21/16 0522 10/21/16 0522 Results 24 hrs Laboratory Tests Test 10/20/16 18:31 10/20/16 21:25 10/21/16 01:24 10/21/16 05:22 Bedside Glucose 136 137 120 White Blood Count 10.1 Red Blood Count 3.04 L Hemoglobin 9.2 L Hematocrit 31.5 L Mean Corpuscular Volume 103.6 H Mean Corpuscular Hemoglobin 30.3 Mean Corpuscular Hemoglobin Concent 29.2 L Red Cell Distribution Width 27.0 H Platelet Count 197 Mean Platelet Volume 11.4 H Neutrophils % 82.5 H Lymphocytes % 8.0 L Monocytes % 6.8 Eosinophils % 1.0 Basophils % 0.2 Nucleated Red Blood Cells % 0.8 H Neutrophils # 8.3 H Lymphocytes # 0.8 Monocytes # 0.7 Eosinophils # 0.1 Basophils # 0.0 Nucleated Red Blood Cells # 0.1 H Prothrombin Time 13.7 Prothrombin Time Ratio 1.1 INR International Normalized Ratio 1.05 Activated Partial Thromboplast Time 29.9 Sodium Level 134 L Potassium Level 4.3 Chloride Level 103 Carbon Dioxide Level 24 Anion Gap 11 Blood Urea Nitrogen 60 H Creatinine 2.59 H Glucose Level 136 Calcium Level 7.9 L Total Bilirubin 0.2 Direct Bilirubin 0.00 Indirect Bilirubin 0.2 Aspartate Amino Transf (AST/SGOT) 163 H Alanine Aminotransferase (ALT/SGPT) 168 H Alkaline Phosphatase 241 H Total Protein 6.0 L Albumin 2.5 L Globulin 3.50 H Albumin/Globulin Ratio 0.71 Test 10/21/16 05:35 10/21/16 07:53 10/21/16 12:01 10/21/16 13:03 Bedside Glucose 119 134 165 154 Test 10/21/16 16:54 Bedside Glucose 132 Medications Medications Current Medications Acetaminophen (Tylenol Liquid) 650 mg Q4H PRN NGT PAIN AND OR ELEVATED TEMP Last administered on 09/27/16 05:14; Admin Dose 650 MG; Start 09/21/16 at 02:00 Eye Lubricant (Artificial Tears Oph) 2 drop QID BOTH EYES Last administered on 10/21/16 12:10; Admin Dose 2 DROP; Start 09/21/16 at 09:00 Atorvastatin Calcium (Lipitor) 80 mg HS NGT Last administered on 10/20/16 21: 26; Admin Dose 80 MG; Start 09/22/16 at 21:00 Pantoprazole (Protonix Iv) 40 mg AM IV Last administered on 10/21/16 07:43; Admin Dose 40 MG; Start 09/26/16 at 09:00 Epoetin Raj (Epogen (Esrd)) 10,000 units TuThSa@17 SC Last administered on 17:53; Admin Dose 10,000 UNITS; Start 09/26/16 at 17:00 IV Flush (NS 10 ml) 10 ml PRN PRN IV IV PROTOCOL; Start 09/26/16 at 17:30 Clopidogrel Bisulfate (plaVIX) 75 mg DAILY NGT Last administered on 10/21/16 07:44; Admin Dose 75 MG; Start 09/27/16 at 09:00 Morphine Sulfate (morphine) 2 mg Q4H PRN IV PAIN Last administered on 12:10; Admin Dose 2 MG; Start 09/28/16 at 16:00 Sodium Biphosphate/ Sodium Phosphate (Fleet Enema) 133 ml DAILY PRN [place] CONSTIPATION Last administered on 10/09/16 00:50; Admin Dose 133 ML; Start 10/01 at 17:00 Lactobacillus Acidoph/Bulgaricus (Floranex) 1 tab TID PO Last administered on 12:09; Admin Dose 1 TAB; Start 10/09/16 at 21:00 Miscellaneous Information 1 ea NOTE XX ; Start 10/09/16 at 20:30 Glucose (Glutose) 15 gm Q15M PRN PO DECREASED GLUCOSE; Start 10/09/16 at 20:30 Glucose (Glutose) 22.5 gm Q15M PRN PO DECREASED GLUCOSE; Start 10/09/16 at 20:30 Dextrose (D50w Syringe) 25 ml Q15M PRN IV DECREASED GLUCOSE Last administered on 10/14/16 00:31; Admin Dose 25 ML; Start 10/09/16 at 20:30 Dextrose (D50w Syringe) 50 ml Q15M PRN IV DECREASED GLUCOSE Last administered on 10/11/16 17:37; Admin Dose 50 ML; Start 10/09/16 at 20:30 Glucagon (Glucagen) 1 mg Q15M PRN IM DECREASED GLUCOSE; Start 10/09/16 at 20:30 Glucose (Glutose) 15 gm Q15M PRN BUCCAL DECREASED GLUCOSE; Start 10/09/16 at 20: 30 Heparin Sodium (Porcine) (Heparin (5000 Units/0.5 ml)) 5,000 unit Q12 SC Last administered on 10/21/16 08:02; Admin Dose 5,000 UNIT; Start 10/11/16 at 21:00 Metoclopramide HCl (Reglan) 5 mg Q6 IV Last administered on 10/21/16 12:09; Admin Dose 5 MG; Start 10/14/16 at 12:00 Calcium Carbonate (Tums) 500 mg TID NGT Last administered on 10/21/16 12:09; Admin Dose 500 MG; Start 10/15/16 at 21:00 Insulin Glargine (Lantus) 26 unit DAILY@08 SC Last administered on 10/21/16 08 :02; Admin Dose 26 UNIT; Start 10/17/16 at 08:00 Insulin Aspart NOVOLOG *MODERATE* ALGORI... Q4 SC Last administered on 13:53; Admin Dose 2 UNIT; Start 10/16/16 at 13:00 Sodium Chloride (NS) 1,000 ml @ 45 mls/hr [id number] IV Last administered on 10/20 20:23; Admin Dose 45 MLS/HR; Start 10/17/16 at 16:30 Lorazepam (Ativan) 0.5 mg TID PRN PO ANXIETY Last administered on 10/20/16 21: 27; Admin Dose 0.5 MG; Start 10/19/16 at 17:30 Metoprolol Tartrate (Lopressor) 25 mg BID PO Last administered on 10/20/16 21: 27; Admin Dose 25 MG; Start 10/20/16 at 21:00 Warfarin Sodium (Coumadin) 3 mg DAILY@17 GTB Last administered on 10/20/16 18: 33; Admin Dose 3 MG; Start 10/20/16 at 17:00 DAMIR MARTINEZ MD Oct 21, 2016 17:38
[2016-10-21] MEDS: WARFARIN 3 MG TAB GTB SCH (17:40)
[2016-10-21] MEDS: ATORVASTATIN 80 MG TAB NGT SCH (21:08)
[2016-10-22] MEDS: INSULIN ASPART [NOVOLOG] 3 ML PEN SC SCH ×6 (01:06→22:32)
[2016-10-22] MEDS: LEVALBUTEROL (NEB) 1.25 MG/0.5 ML AMP HHN SCH ×5 (02:43→20:00)
[2016-10-22] MEDS: IPRATROPIUM (NEB) 0.5 MG/2.5 ML AMP HHN SCH ×5 (02:43→20:00)
[2016-10-22] MEDS: ACETYLCYSTEINE 20% 4 ML VIAL NEB SCH ×4 (02:43→20:00)
[2016-10-22] MEDS: METOCLOPRAMIDE 10 MG INJ IV SCH ×3 (05:58→17:34)
[2016-10-22 07:32] VITALS: BP 108/54; RESP 20
--- NOTE | 2016-10-22 08:45 | CONS ---
Date/Time of Note Date/Time of Note DATE: 10/22/16 TIME: 08:43 Assessment/Plan Assessment/Plan Chief Complaint/Hosp Course 1. Acute Renal Failure due to ATN , oliguric . Her BUN is lower . she had hemodialysis yesterday, 2.6 liters removed . . I would recommend we continue dialysis every other day. 2. ALOC , she is improved 3. liver enzyme elevation due to anoxia , enzymes are decreasing . 4. hypotension , she is now normotensive off pressors. 5. hypocalcemia/hypoalbuminemia , calcium is higher 6. anemia , she has not had any recent GI bleeding . 7. peripheral vascular disease . 8. respiratory failure , off ventilator . 9 dysphagia , she is on tube feeding Problems: Consultation Date/Type/Reason Admit Date/Time Sep 20, 2016 at 19:21 Initial Consult Date 09/23/16 Type of Consultation: neph Referring Provider: ZANDRA ROBISON MD, [facility] 24 HR Interval Summary Free Text/Dictation She is awake and responsive . Constitutional: improved, no complaints Exam/Review of Systems Vital Signs Vitals Vital Signs Date Time Temp Pulse Resp B/P Pulse Ox O2 Delivery O2 Flow Rate FiO2 10/22/16 07:32 97.8 80 20 108/54 98 10/22/16 02:59 3.0 10/22/16 02:45 Nasal Cannula 10/19/16 15:15 28 Intake and Output 10/21/16 10/21/16 10/22/16 15:00 23:00 07:00 Intake Total 400 ml 595 ml 760 ml Output Total 3000 ml 150 ml Balance -2600 ml 445 ml 760 ml Exam Constitutional: alert, oriented, well developed Respiratory: normal air movement, wheezing Cardiovascular: regular rate and rhythm Extremities: edema Results Result Diagram: 10/21/1652110/21/1622 Results 24 hrs Laboratory Tests Test 10/21/16 12:01 10/21/16 13:03 10/21/16 16:54 10/21/16 21:03 Bedside Glucose 165 154 132 141 Test 10/22/16 01:04 10/22/16 05:57 Bedside Glucose 144 114 Medications Medications Current Medications Acetaminophen (Tylenol Liquid) 650 mg Q4H PRN NGT PAIN AND OR ELEVATED TEMP Last administered on 09/27/16t 05:14; Admin Dose 650 MG; Start 09/21/16 at 02:00 Eye Lubricant (Artificial Tears Oph) 2 drop QID BOTH EYES Last administered on 10/21/16 21:08; Admin Dose 2 DROP; Start 09/21/16 at 09:00 Atorvastatin Calcium (Lipitor) 80 mg HS NGT Last administered on 10/21/16 21: 08; Admin Dose 80 MG; Start 09/22/16 at 21:00 Pantoprazole (Protonix Iv) 40 mg AM IV Last administered on 10/21/16 07:43; Admin Dose 40 MG; Start 09/26/16 at 09:00 Epoetin Raj (Epogen (Esrd)) 10,000 units TuThSa@17 SC Last administered on 17:53; Admin Dose 10,000 UNITS; Start 09/26/16 at 17:00 IV Flush (NS 10 ml) 10 ml PRN PRN IV IV PROTOCOL; Start 09/26/16 at 17:30 Clopidogrel Bisulfate (plaVIX) 75 mg DAILY NGT Last administered on 10/21/16 07:44; Admin Dose 75 MG; Start 09/27/16 at 09:00 Morphine Sulfate (morphine) 2 mg Q4H PRN IV PAIN Last administered on 12:10; Admin Dose 2 MG; Start 09/28/16 at 16:00 Sodium Biphosphate/ Sodium Phosphate (Fleet Enema) 133 ml DAILY PRN [place] CONSTIPATION Last administered on 10/09/16 00:50; Admin Dose 133 ML; Start 10/01 at 17:00 Lactobacillus Acidoph/Bulgaricus (Floranex) 1 tab TID PO Last administered on 21:09; Admin Dose 1 TAB; Start 10/09/16 at 21:00 Miscellaneous Information 1 ea NOTE XX ; Start 10/09/16 at 20:30 Glucose (Glutose) 15 gm Q15M PRN PO DECREASED GLUCOSE; Start 10/09/16 at 20:30 Glucose (Glutose) 22.5 gm Q15M PRN PO DECREASED GLUCOSE; Start 10/09/16 at 20:30 Dextrose (D50w Syringe) 25 ml Q15M PRN IV DECREASED GLUCOSE Last administered on 10/14/16 00:31; Admin Dose 25 ML; Start 10/09/16 at 20:30 Dextrose (D50w Syringe) 50 ml Q15M PRN IV DECREASED GLUCOSE Last administered on 10/11/16 17:37; Admin Dose 50 ML; Start 10/09/16 at 20:30 Glucagon (Glucagen) 1 mg Q15M PRN IM DECREASED GLUCOSE; Start 10/09/16 at 20:30 Glucose (Glutose) 15 gm Q15M PRN BUCCAL DECREASED GLUCOSE; Start 10/09/16 at 20: 30 Heparin Sodium (Porcine) (Heparin (5000 Units/0.5 ml)) 5,000 unit Q12 SC Last administered on 10/21/16 21:13; Admin Dose 5,000 UNIT; Start 10/11/16 at 21:00 Metoclopramide HCl (Reglan) 5 mg Q6 IV Last administered on 10/22/16 05:58; Admin Dose 5 MG; Start 10/14/16 at 12:00 Calcium Carbonate (Tums) 500 mg TID NGT Last administered on 10/21/16 21:09; Admin Dose 500 MG; Start 10/15/16 at 21:00 Insulin Glargine (Lantus) 26 unit DAILY@08 SC Last administered on 10/21/16 08 :02; Admin Dose 26 UNIT; Start 10/17/16 at 08:00 Insulin Aspart NOVOLOG *MODERATE* ALGORI... Q4 SC Last administered on 01:06; Admin Dose 2 UNIT; Start 10/16/16 at 13:00 Sodium Chloride (NS) 1,000 ml @ 45 mls/hr [id number] IV Last administered on 10/21 19:50; Admin Dose 45 MLS/HR; Start 10/17/16 at 16:30 Lorazepam (Ativan) 0.5 mg TID PRN PO ANXIETY Last administered on 10/20/16 21: 27; Admin Dose 0.5 MG; Start 10/19/16 at 17:30 Metoprolol Tartrate (Lopressor) 25 mg BID PO Last administered on 10/21/16 21: 10; Admin Dose 25 MG; Start 10/20/16 at 21:00 Warfarin Sodium (Coumadin) 3 mg DAILY@17 GTB Last administered on 10/21/16 17: 40; Admin Dose 3 MG; Start 10/20/16 at 17:00 DAMIR MARTINEZ MD Oct 22, 2016 08:45
[2016-10-22] MEDS: CALCIUM CARBONATE 500 MG CHEW TAB NGT SCH ×3 (08:53→22:09)
[2016-10-22] MEDS: CLOPIDOGREL 75 MG TAB NGT SCH (08:53)
[2016-10-22] MEDS: LACTOBACILLUS CHEW TAB PO SCH ×3 (08:53→22:10)
[2016-10-22] MEDS: PANTOPRAZOLE 40 MG INJ IV SCH (08:53)
[2016-10-22] MEDS: ARTIFICIAL TEARS 15 ML OPH BOTH EYES SCH ×4 (08:54→22:09)
[2016-10-22] MEDS: METOPROLOL 25 MG TAB PO SCH ×2 (08:54→21:00)
[2016-10-22] MEDS: INSULIN GLARGINE [LANtus] 3 ML PEN SC SCH (08:55)
[2016-10-22] MEDS: HEPARIN 5,000 UNIT/0.5 ML VIAL SC SCH ×2 (09:01→22:12)
[2016-10-22] MEDS ORDERED: CALCIUM GLUCONATE 10% 2 GM in SOD CHLORIDE 0.9% 100 ML IVPB ONE (14:00)
--- NOTE | 2016-10-22 14:12 | PN ---
Date/Time of Note Date/Time of Note DATE: 10/22/16 TIME: 13:56 Assessment/Plan VTE Prophylaxis VTE Prophylaxis Intervention: other (hep, coum, plavix) Lines/Catheters IV Catheter Type (from Nrsg): PICC Line Central line still needed: No Urinary Cath still in place: Yes Reason Cath still needed: terminal illness/intractable pain Assessment/Plan Assessment/Plan 1. s/p stemi--cad/ htn/ pad 2. recovering pneumonia/ rld 3. arf--dialysis/ anemia/ edema 4. dm 5. musc weak/ dysphagia--ngt feed 6. obesity ---per cards ---per pulm, extensive RT, inspirameter use ---per renal, dialysis ---full PT/ OT ---vasc surg ref ---cont all supportive cares ---replace needed supps Subjective 24 Hr Interval Summary Free Text/Dictation spont movements, nods & shakes, Exam/Review of Systems Vital Signs Vitals Vital Signs Date Time Temp Pulse Resp B/P Pulse Ox O2 Delivery O2 Flow Rate FiO2 10/22/16 13:41 84 17 96 Nasal Cannula 3.0 10/22/16 07:32 97.8 108/54 10/19/16 15:15 28 Intake and Output 10/21/16 10/21/16 10/22/16 15:00 23:00 07:00 Intake Total 400 ml 595 ml 760 ml Output Total 3000 ml 150 ml Balance -2600 ml 445 ml 760 ml Exam weak coughs, uses all access musc to breathe rr diast m+ dec bs, more rt better but still has global edema obese a few toes blue black Results Result Diagram: 10/21/1652110/21/1622 Results 24 hrs Laboratory Tests Test 10/21/16 16:54 10/21/16 21:03 10/22/16 01:04 10/22/16 05:57 Bedside Glucose 132 141 144 114 Test 10/22/16 08:52 10/22/16 12:11 Bedside Glucose 113 117 Medications Medications Current Medications Acetaminophen (Tylenol Liquid) 650 mg Q4H PRN NGT PAIN AND OR ELEVATED TEMP Last administered on 09/27/16t 05:14; Admin Dose 650 MG; Start 09/21/16 at 02:00 Eye Lubricant (Artificial Tears Oph) 2 drop QID BOTH EYES Last administered on 10/22/16 12:10; Admin Dose 2 DROP; Start 09/21/16 at 09:00 Atorvastatin Calcium (Lipitor) 80 mg HS NGT Last administered on 10/21/16 21: 08; Admin Dose 80 MG; Start 09/22/16 at 21:00 Pantoprazole (Protonix Iv) 40 mg AM IV Last administered on 10/22/16 08:53; Admin Dose 40 MG; Start 09/26/16 at 09:00 Epoetin Raj (Epogen (Esrd)) 10,000 units TuThSa@17 SC Last administered on 17:53; Admin Dose 10,000 UNITS; Start 09/26/16 at 17:00 IV Flush (NS 10 ml) 10 ml PRN PRN IV IV PROTOCOL; Start 09/26/16 at 17:30 Clopidogrel Bisulfate (plaVIX) 75 mg DAILY NGT Last administered on 10/22/16 08:53; Admin Dose 75 MG; Start 09/27/16 at 09:00 Morphine Sulfate (morphine) 2 mg Q4H PRN IV PAIN Last administered on 12:10; Admin Dose 2 MG; Start 09/28/16 at 16:00 Lactobacillus Acidoph/Bulgaricus (Floranex) 1 tab TID PO Last administered on 12:09; Admin Dose 1 TAB; Start 10/09/16 at 21:00 Miscellaneous Information 1 ea NOTE XX ; Start 10/09/16 at 20:30 Glucose (Glutose) 15 gm Q15M PRN PO DECREASED GLUCOSE; Start 10/09/16 at 20:30 Glucose (Glutose) 22.5 gm Q15M PRN PO DECREASED GLUCOSE; Start 10/09/16 at 20:30 Dextrose (D50w Syringe) 25 ml Q15M PRN IV DECREASED GLUCOSE Last administered on 10/14/16 00:31; Admin Dose 25 ML; Start 10/09/16 at 20:30 Dextrose (D50w Syringe) 50 ml Q15M PRN IV DECREASED GLUCOSE Last administered on 10/11/16 17:37; Admin Dose 50 ML; Start 10/09/16 at 20:30 Glucagon (Glucagen) 1 mg Q15M PRN IM DECREASED GLUCOSE; Start 10/09/16 at 20:30 Glucose (Glutose) 15 gm Q15M PRN BUCCAL DECREASED GLUCOSE; Start 10/09/16 at 20: 30 Heparin Sodium (Porcine) (Heparin (5000 Units/0.5 ml)) 5,000 unit Q12 SC Last administered on 10/22/16 09:01; Admin Dose 5,000 UNIT; Start 10/11/16 at 21:00 Metoclopramide HCl (Reglan) 5 mg Q6 IV Last administered on 10/22/16 12:10; Admin Dose 5 MG; Start 10/14/16 at 12:00 Calcium Carbonate (Tums) 500 mg TID NGT Last administered on 10/22/16 12:10; Admin Dose 500 MG; Start 10/15/16 at 21:00 Insulin Glargine (Lantus) 26 unit DAILY@08 SC Last administered on 10/22/16 08 :55; Admin Dose 26 UNIT; Start 10/17/16 at 08:00 Insulin Aspart (Novolog Insulin Pen) NOVOLOG *MODERATE* ALGORI... Q4 SC Last administered on 10/22/16 01:06; Admin Dose 2 UNIT; Start 10/16/16 at 13:00 Lorazepam (Ativan) 0.5 mg TID PRN PO ANXIETY Last administered on 10/20/16 21: 27; Admin Dose 0.5 MG; Start 10/19/16 at 17:30 Metoprolol Tartrate (Lopressor) 25 mg BID PO Last administered on 10/22/16 08: 54; Admin Dose 25 MG; Start 10/20/16 at 21:00 Warfarin Sodium (Coumadin) 3 mg DAILY@17 GTB Last administered on 10/21/16 17: 40; Admin Dose 3 MG; Start 10/20/16 at 17:00 SHAMA LOPEZ MD Oct 22, 2016 14:06
--- NOTE | 2016-10-22 14:19 | PN ---
Date/Time of Note Date/Time of Note DATE: 10/21/16 TIME: 14:12 Assessment/Plan VTE Prophylaxis VTE Prophylaxis Intervention: other (plavix, coum, hep) Lines/Catheters IV Catheter Type (from Nrsg): PICC Line Central line still needed: No Urinary Cath still in place: Yes Reason Cath still needed: other (indicate) (weak musc, not yet out of bed) Assessment/Plan Assessment/Plan 1. cad/ pad 2. pneumonia/ rld 3. arf--dialysis/ anemia/ edema 4. dm 5. weak musc/ dysphagia--ngt feed ---out to med-surg bed ok ---per cards ---per pulm, RT ---per renal, dialysis & epogen ---change anticoag ---aggressive PT/ OT Subjective 24 Hr Interval Summary Free Text/Dictation nods, shakes head/ awake Exam/Review of Systems Vital Signs Vitals Vital Signs Date Time Temp Pulse Resp B/P Pulse Ox O2 Delivery O2 Flow Rate FiO2 10/22/16 13:41 84 17 96 Nasal Cannula 3.0 10/22/16 07:32 97.8 108/54 10/19/16 15:15 28 Intake and Output 10/21/16 10/21/16 10/22/16 15:00 23:00 07:00 Intake Total 400 ml 595 ml 760 ml Output Total 3000 ml 150 ml Balance -2600 ml 445 ml 760 ml Exam in bed, obese, labored breathing obese, global edema+ toes blue black+ dec bs, more rt rr diast m+ Results Result Diagram: 10/21/1652110/21/16521 Results 24 hrs Laboratory Tests Test 10/21/16 16:54 10/21/16 21:03 10/22/16 01:04 10/22/16 05:57 Bedside Glucose 132 141 144 114 Test 10/22/16 08:52 10/22/16 12:11 Bedside Glucose 113 117 Medications Medications Current Medications Acetaminophen (Tylenol Liquid) 650 mg Q4H PRN NGT PAIN AND OR ELEVATED TEMP Last administered on 09/27/16 05:14; Admin Dose 650 MG; Start 09/21/16 at 02:00 Eye Lubricant (Artificial Tears Oph) 2 drop QID BOTH EYES Last administered on 10/22/16 12:10; Admin Dose 2 DROP; Start 09/21/16 at 09:00 Atorvastatin Calcium (Lipitor) 80 mg HS NGT Last administered on 10/21/16 21: 08; Admin Dose 80 MG; Start 09/22/16 at 21:00 Pantoprazole (Protonix Iv) 40 mg AM IV Last administered on 10/22/16 08:53; Admin Dose 40 MG; Start 09/26/16 at 09:00 Epoetin Raj (Epogen (Esrd)) 10,000 units TuThSa@17 SC Last administered on 17:53; Admin Dose 10,000 UNITS; Start 09/26/16 at 17:00 IV Flush (NS 10 ml) 10 ml PRN PRN IV IV PROTOCOL; Start 09/26/16 at 17:30 Clopidogrel Bisulfate (plaVIX) 75 mg DAILY NGT Last administered on 10/22/16 08:53; Admin Dose 75 MG; Start 09/27/16 at 09:00 Morphine Sulfate (morphine) 2 mg Q4H PRN IV PAIN Last administered on 12:10; Admin Dose 2 MG; Start 09/28/16 at 16:00 Lactobacillus Acidoph/Bulgaricus (Floranex) 1 tab TID PO Last administered on 12:09; Admin Dose 1 TAB; Start 10/09/16 at 21:00 Miscellaneous Information 1 ea NOTE XX ; Start 10/09/16 at 20:30 Glucose (Glutose) 15 gm Q15M PRN PO DECREASED GLUCOSE; Start 10/09/16 at 20:30 Glucose (Glutose) 22.5 gm Q15M PRN PO DECREASED GLUCOSE; Start 10/09/16 at 20:30 Dextrose (D50w Syringe) 25 ml Q15M PRN IV DECREASED GLUCOSE Last administered on 10/14/16 00:31; Admin Dose 25 ML; Start 10/09/16 at 20:30 Dextrose (D50w Syringe) 50 ml Q15M PRN IV DECREASED GLUCOSE Last administered on 10/11/16 17:37; Admin Dose 50 ML; Start 10/09/16 at 20:30 Glucagon (Glucagen) 1 mg Q15M PRN IM DECREASED GLUCOSE; Start 10/09/16 at 20:30 Glucose (Glutose) 15 gm Q15M PRN BUCCAL DECREASED GLUCOSE; Start 10/09/16 at 20: 30 Heparin Sodium (Porcine) (Heparin (5000 Units/0.5 ml)) 5,000 unit Q12 SC Last administered on 10/22/16 09:01; Admin Dose 5,000 UNIT; Start 10/11/16 at 21:00 Metoclopramide HCl (Reglan) 5 mg Q6 IV Last administered on 10/22/16 12:10; Admin Dose 5 MG; Start 10/14/16 at 12:00 Calcium Carbonate (Tums) 500 mg TID NGT Last administered on 10/22/16 12:10; Admin Dose 500 MG; Start 10/15/16 at 21:00 Insulin Glargine (Lantus) 26 unit DAILY@08 SC Last administered on 10/22/16 08 :55; Admin Dose 26 UNIT; Start 10/17/16 at 08:00 Insulin Aspart (Novolog Insulin Pen) NOVOLOG *MODERATE* ALGORI... Q4 SC Last administered on 10/22/16 01:06; Admin Dose 2 UNIT; Start 10/16/16 at 13:00 Lorazepam (Ativan) 0.5 mg TID PRN PO ANXIETY Last administered on 10/20/16 21: 27; Admin Dose 0.5 MG; Start 10/19/16 at 17:30 Metoprolol Tartrate (Lopressor) 25 mg BID PO Last administered on 10/22/16 08: 54; Admin Dose 25 MG; Start 10/20/16 at 21:00 Warfarin Sodium (Coumadin) 3 mg DAILY@17 GTB Last administered on 10/21/16 17: 40; Admin Dose 3 MG; Start 10/20/16 at 17:00 SHAMA LOPEZ MD Oct 22, 2016 14:19
--- NOTE | 2016-10-22 14:24 | PN ---
Date/Time of Note Date/Time of Note DATE: 10/18/16 TIME: 12:19 Assessment/Plan VTE Prophylaxis VTE Prophylaxis Intervention: heparin, other (plavix, coum) Lines/Catheters IV Catheter Type (from Nrsg): PICC Line Central line still needed: No Urinary Cath still in place: Yes Reason Cath still needed: terminal illness/intractable pain Assessment/Plan Assessment/Plan 1. cad/ pad 2. rld/ pneumonia 3. arf--dialysis/ anemia/ low calc/ edema 4. dm 5. musc weak/ dysphagia/ low alb ---per cards ---per pulm, RT ---per renal--dialysis, epogen, calc supp ---inc PT/OT, ngt feed ---considering antidepressant ---out to tele bed Subjective 24 Hr Interval Summary Free Text/Dictation awakable, in bed min nods/ shakes of head Exam/Review of Systems Vital Signs Vitals Vital Signs Date Time Temp Pulse Resp B/P Pulse Ox O2 Delivery O2 Flow Rate FiO2 10/22/16 13:41 84 17 96 Nasal Cannula 3.0 10/22/16 07:32 97.8 108/54 10/19/16 15:15 28 Intake and Output 10/21/16 10/21/16 10/22/16 15:00 23:00 07:00 Intake Total 400 ml 595 ml 760 ml Output Total 3000 ml 150 ml Balance -2600 ml 445 ml 760 ml Exam obese, gen edema+ shallow breathing, dec bs bibasilar+ rr diast m+ toes blue black+ Results Result Diagram: 10/21/1652110/21/16521 Results 24 hrs Laboratory Tests Test 10/21/16 16:54 10/21/16 21:03 10/22/16 01:04 10/22/16 05:57 Bedside Glucose 132 141 144 114 Test 10/22/16 08:52 10/22/16 12:11 Bedside Glucose 113 117 Medications Medications Current Medications Acetaminophen (Tylenol Liquid) 650 mg Q4H PRN NGT PAIN AND OR ELEVATED TEMP Last administered on 09/27/16 05:14; Admin Dose 650 MG; Start 09/21/16 at 02:00 Eye Lubricant (Artificial Tears Oph) 2 drop QID BOTH EYES Last administered on 10/22/16 12:10; Admin Dose 2 DROP; Start 09/21/16 at 09:00 Atorvastatin Calcium (Lipitor) 80 mg HS NGT Last administered on 10/21/16 21: 08; Admin Dose 80 MG; Start 09/22/16 at 21:00 Pantoprazole (Protonix Iv) 40 mg AM IV Last administered on 10/22/16 08:53; Admin Dose 40 MG; Start 09/26/16 at 09:00 Epoetin Raj (Epogen (Esrd)) 10,000 units TuThSa@17 SC Last administered on 17:53; Admin Dose 10,000 UNITS; Start 09/26/16 at 17:00 IV Flush (NS 10 ml) 10 ml PRN PRN IV IV PROTOCOL; Start 09/26/16 at 17:30 Clopidogrel Bisulfate (plaVIX) 75 mg DAILY NGT Last administered on 10/22/16 08:53; Admin Dose 75 MG; Start 09/27/16 at 09:00 Morphine Sulfate (morphine) 2 mg Q4H PRN IV PAIN Last administered on 12:10; Admin Dose 2 MG; Start 09/28/16 at 16:00 Lactobacillus Acidoph/Bulgaricus (Floranex) 1 tab TID PO Last administered on 12:09; Admin Dose 1 TAB; Start 10/09/16 at 21:00 Miscellaneous Information 1 ea NOTE XX ; Start 10/09/16 at 20:30 Glucose (Glutose) 15 gm Q15M PRN PO DECREASED GLUCOSE; Start 10/09/16 at 20:30 Glucose (Glutose) 22.5 gm Q15M PRN PO DECREASED GLUCOSE; Start 10/09/16 at 20:30 Dextrose (D50w Syringe) 25 ml Q15M PRN IV DECREASED GLUCOSE Last administered on 10/14/16 00:31; Admin Dose 25 ML; Start 10/09/16 at 20:30 Dextrose (D50w Syringe) 50 ml Q15M PRN IV DECREASED GLUCOSE Last administered on 10/11/16 17:37; Admin Dose 50 ML; Start 10/09/16 at 20:30 Glucagon (Glucagen) 1 mg Q15M PRN IM DECREASED GLUCOSE; Start 10/09/16 at 20:30 Glucose (Glutose) 15 gm Q15M PRN BUCCAL DECREASED GLUCOSE; Start 10/09/16 at 20: 30 Heparin Sodium (Porcine) (Heparin (5000 Units/0.5 ml)) 5,000 unit Q12 SC Last administered on 10/22/16 09:01; Admin Dose 5,000 UNIT; Start 10/11/16 at 21:00 Metoclopramide HCl (Reglan) 5 mg Q6 IV Last administered on 10/22/16 12:10; Admin Dose 5 MG; Start 10/14/16 at 12:00 Calcium Carbonate (Tums) 500 mg TID NGT Last administered on 10/22/16 12:10; Admin Dose 500 MG; Start 10/15/16 at 21:00 Insulin Glargine (Lantus) 26 unit DAILY@08 SC Last administered on 10/22/16 08 :55; Admin Dose 26 UNIT; Start 10/17/16 at 08:00 Insulin Aspart (Novolog Insulin Pen) NOVOLOG *MODERATE* ALGORI... Q4 SC Last administered on 10/22/16 01:06; Admin Dose 2 UNIT; Start 10/16/16 at 13:00 Lorazepam (Ativan) 0.5 mg TID PRN PO ANXIETY Last administered on 10/20/16 21: 27; Admin Dose 0.5 MG; Start 10/19/16 at 17:30 Metoprolol Tartrate (Lopressor) 25 mg BID PO Last administered on 10/22/16 08: 54; Admin Dose 25 MG; Start 10/20/16 at 21:00 Warfarin Sodium (Coumadin) 3 mg DAILY@17 GTB Last administered on 10/21/16 17: 40; Admin Dose 3 MG; Start 10/20/16 at 17:00 SHAMA LOPEZ MD Oct 22, 2016 14:24
[2016-10-22] MEDS: LORAZEPAM 0.5 MG TAB PO PRN (15:48)
--- NOTE | 2016-10-22 16:45 | CONS ---
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 Pt will need leg angiogram with revascularization by me out pt. I had discussed case with Dr Castillo. will f.u pt and plan accordingly. Pt is stable at this time cardiac palmer. Tried reaching family ( ) but unable to reach. will /.fu Consultation Date/Type/Reason Admit Date/Time Sep 20, 2016 at 19:21 Date of Consultation: Oct 22, 2016 Type of Consultation: Endovascular Interventionalist Reason for Consultation Gangrene, PAD Hx of Present Illness Patient is 71 year old F with PMH of HTn, HLD, 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 Patient was seen and examined at bedside. She has NGT placed so her speech was not that clear. she does feel overall weak but stable. denies any CP or SOB. she has resting leg pain on and off according to her but there is clear gangrene on toes. its not dry yet but in the process. Constitutional: improved, no complaints Psychological: nl mood/affect Past Medical History Medical History: diabetes Past Surgical History Past Surgical Hx: noncontributory Social History Alcohol Use: sober Smoking Status: Unknown if ever smoked Exam/Review of Systems Vital Signs Vitals Vital Signs Date Time Temp Pulse Resp B/P Pulse Ox O2 Delivery O2 Flow Rate FiO2 10/22/16 13:41 84 17 96 Nasal Cannula 3.0 10/22/16 07:32 97.8 108/54 10/19/16 15:15 28 Intake and Output 10/21/16 10/21/16 10/22/16 15:00 23:00 07:00 Intake Total 400 ml 595 ml 760 ml Output Total 3000 ml 150 ml Balance -2600 ml 445 ml 760 ml Exam Constitutional: alert, oriented Psych: no complaints Head: normocephalic Eyes: nl conjunctiva ENMT: nl external ears & nose Neck: non-tender, supple Respiratory: clear to auscultation Gastrointestinal: soft Musculoskeletal: nl extremities to inspection Extremities: edema Results Result Diagram: 10/21/16 0522 10/21/16 0522 Results 24 hrs Laboratory Tests Test 10/21/16 16:54 10/21/16 21:03 10/22/16 01:04 10/22/16 05:57 Bedside Glucose 132 141 144 114 Test 10/22/16 08:52 10/22/16 12:11 Bedside Glucose 113 117 Medications Medications Current Medications Acetaminophen (Tylenol Liquid) 650 mg Q4H PRN NGT PAIN AND OR ELEVATED TEMP Last administered on 09/27/16 05:14; Admin Dose 650 MG; Start 09/21/16 at 02:00 Eye Lubricant (Artificial Tears Oph) 2 drop QID BOTH EYES Last administered on 10/22/16 12:10; Admin Dose 2 DROP; Start 09/21/16 at 09:00 Atorvastatin Calcium (Lipitor) 80 mg HS NGT Last administered on 10/21/16 21: 08; Admin Dose 80 MG; Start 09/22/16 at 21:00 Pantoprazole (Protonix Iv) 40 mg AM IV Last administered on 10/22/16 08:53; Admin Dose 40 MG; Start 09/26/16 at 09:00 Epoetin Raj (Epogen (Esrd)) 10,000 units TuThSa@17 SC Last administered on 17:53; Admin Dose 10,000 UNITS; Start 09/26/16 at 17:00 IV Flush (NS 10 ml) 10 ml PRN PRN IV IV PROTOCOL; Start 09/26/16 at 17:30 Clopidogrel Bisulfate (plaVIX) 75 mg DAILY NGT Last administered on 10/22/16 08:53; Admin Dose 75 MG; Start 09/27/16 at 09:00 Morphine Sulfate (morphine) 2 mg Q4H PRN IV PAIN Last administered on 12:10; Admin Dose 2 MG; Start 09/28/16 at 16:00 Lactobacillus Acidoph/Bulgaricus (Floranex) 1 tab TID PO Last administered on 12:09; Admin Dose 1 TAB; Start 10/09/16 at 21:00 Miscellaneous Information 1 ea NOTE XX ; Start 10/09/16 at 20:30 Glucose (Glutose) 15 gm Q15M PRN PO DECREASED GLUCOSE; Start 10/09/16 at 20:30 Glucose (Glutose) 22.5 gm Q15M PRN PO DECREASED GLUCOSE; Start 10/09/16 at 20:30 Dextrose (D50w Syringe) 25 ml Q15M PRN IV DECREASED GLUCOSE Last administered on 10/14/16 00:31; Admin Dose 25 ML; Start 10/09/16 at 20:30 Dextrose (D50w Syringe) 50 ml Q15M PRN IV DECREASED GLUCOSE Last administered on 10/11/16 17:37; Admin Dose 50 ML; Start 10/09/16 at 20:30 Glucagon (Glucagen) 1 mg Q15M PRN IM DECREASED GLUCOSE; Start 10/09/16 at 20:30 Glucose (Glutose) 15 gm Q15M PRN BUCCAL DECREASED GLUCOSE; Start 10/09/16 at 20: 30 Heparin Sodium (Porcine) (Heparin (5000 Units/0.5 ml)) 5,000 unit Q12 SC Last administered on 10/22/16 09:01; Admin Dose 5,000 UNIT; Start 10/11/16 at 21:00 Metoclopramide HCl (Reglan) 5 mg Q6 IV Last administered on 10/22/16 12:10; Admin Dose 5 MG; Start 10/14/16 at 12:00 Calcium Carbonate (Tums) 500 mg TID NGT Last administered on 10/22/16 12:10; Admin Dose 500 MG; Start 10/15/16 at 21:00 Insulin Glargine (Lantus) 26 unit DAILY@08 SC Last administered on 10/22/16 08 :55; Admin Dose 26 UNIT; Start 10/17/16 at 08:00 Insulin Aspart (Novolog Insulin Pen) NOVOLOG *MODERATE* ALGORI... Q4 SC Last administered on 10/22/16 01:06; Admin Dose 2 UNIT; Start 10/16/16 at 13:00 Lorazepam (Ativan) 0.5 mg TID PRN PO ANXIETY Last administered on 10/22/16 15: 48; Admin Dose 0.5 MG; Start 10/19/16 at 17:30 Metoprolol Tartrate (Lopressor) 25 mg BID PO Last administered on 10/22/16 08: 54; Admin Dose 25 MG; Start 10/20/16 at 21:00 Warfarin Sodium (Coumadin) 3 mg DAILY@17 GTB Last administered on 10/21/16 17: 40; Admin Dose 3 MG; Start 10/20/16 at 17:00 VIRGINIE JUARES MD Oct 22, 2016 16:45
[2016-10-22] MEDS: WARFARIN 3 MG TAB GTB SCH (17:34)
[2016-10-22] MEDS: EPOETIN 10000 UNITS/1 ML INJ (ESRD) SC SCH (17:35)
[2016-10-22 20:11] VITALS: BP 98/53; RESP 18
[2016-10-22] MEDS: ATORVASTATIN 80 MG TAB NGT SCH (22:10)
[2016-10-23] MEDS: METOCLOPRAMIDE 10 MG INJ IV SCH ×4 (01:32→17:26)
[2016-10-23] MEDS: INSULIN ASPART [NOVOLOG] 3 ML PEN SC SCH ×7 (01:37→20:59)
[2016-10-23] MEDS: LEVALBUTEROL (NEB) 1.25 MG/0.5 ML AMP HHN SCH ×5 (02:00→20:00)
[2016-10-23] MEDS: ACETYLCYSTEINE 20% 4 ML VIAL NEB SCH ×5 (02:00→20:00)
[2016-10-23] MEDS: IPRATROPIUM (NEB) 0.5 MG/2.5 ML AMP HHN SCH ×5 (02:00→20:00)
[2016-10-23 05:28] LABS: ADD SCAN DIFF NO
[2016-10-23 05:48] LABS: ABNORMAL IP MESSAGE 1; BASOPHILS % 0.1 % (0.0-2.0); EOSINOPHILS # 0.1 10^3/ul (0.0-0.5); EOSINOPHILS % 0.8 % (0.0-7.0); HEMATOCRIT 28.9 % (37.0-47.0); HEMOGLOBIN 8.2 g/dl (12.0-16.0); LYMPHOCYTES # 0.8 10^3/ul (0.8-2.9); LYMPHOCYTES % 7.8 % (15.0-51.0); MEAN CORPUSCULAR HEMOGLOBIN 29.9 pg (29.0-33.0); MEAN CORPUSCULAR HGB CONC 28.4 g/dl (32.0-37.0); MEAN CORPUSCULAR VOLUME 105.5 fl (82.0-101.0); MEAN PLATELET VOLUME 10.8 fl (7.4-10.4); MONOCYTE # 0.6 10^3/ul (0.3-0.9); MONOCYTES % 6.6 % (0.0-11.0); NEUTROPHIL # 8.1 10^3/ul (1.6-7.5); NEUTROPHILS % 83.4 % (39.0-77.0); NUCLEATED RED BLOOD CELLS # 0.1 10^3/ul (0.0-0.0); NUCLEATED RED BLOOD CELLS% 0.8 /100WBC (0.0-0.0); PLATELET COUNT 189 10^3/UL (140-415); RED BLOOD COUNT 2.74 10^6/ul (4.20-5.40); WHITE BLOOD COUNT 9.8 10^3/ul (4.8-10.8)
[2016-10-23 05:50] LABS: INR 1.18; PROTIME 15.1 Sec (12.2-14.2); PT RATIO 1.2
[2016-10-23 05:57] LABS: POTASSIUM 3.4 mmol/L (3.5-5.1)
[2016-10-23 05:59] LABS: CREATININE 2.21 mg/dl (0.44-1.00)
[2016-10-23 06:00] LABS: CALCIUM 7.3 mg/dl (8.4-10.2)
[2016-10-23 07:29] VITALS: BP 112/56; RESP 16
[2016-10-23] MEDS: LACTOBACILLUS CHEW TAB PO SCH ×3 (09:10→20:58)
[2016-10-23] MEDS: CLOPIDOGREL 75 MG TAB NGT SCH (09:10)
[2016-10-23] MEDS: CALCIUM CARBONATE 500 MG CHEW TAB NGT SCH ×3 (09:10→20:59)
[2016-10-23] MEDS: PANTOPRAZOLE 40 MG INJ IV SCH (09:10)
[2016-10-23] MEDS: METOPROLOL 25 MG TAB PO SCH ×2 (09:11→20:58)
[2016-10-23] MEDS: ARTIFICIAL TEARS 15 ML OPH BOTH EYES SCH ×4 (09:11→21:07)
[2016-10-23] MEDS: HEPARIN 5,000 UNIT/0.5 ML VIAL SC SCH ×2 (09:12→21:14)
[2016-10-23] MEDS: INSULIN GLARGINE [LANtus] 3 ML PEN SC SCH (09:14)
--- NOTE | 2016-10-23 10:11 | CONS ---
Date/Time of Note Date/Time of Note DATE: 10/23/16 TIME: 10:06 Assessment/Plan Assessment/Plan Chief Complaint/Hosp Course 1. Acute Renal Failure due to ATN , oliguric . Her BUN is lower . She was scheduled for hemodialysis for today ; however I am going to cancel it . Will recheck labs for tomorrow . 2. ALOC , she is improved 3. liver enzyme elevation due to anoxia , enzymes are decreasing . 4. hypotension , she is now normotensive off pressors. 5. hypocalcemia/hypoalbuminemia , calcium is higher 6. anemia , she has not had any recent GI bleeding . 7. peripheral vascular disease . 8. respiratory failure , off ventilator . 9 dysphagia , she is on tube feeding 10. she is now on 3 anticoagulants . Will need review by cardiology . Problems: Consultation Date/Type/Reason Admit Date/Time Sep 20, 2016 at 19:21 Initial Consult Date 09/23/16 Type of Consultation: Endovascular Interventionalist Referring Provider: ZANDRA ROBISON MD, [facility] 24 HR Interval Summary Free Text/Dictation She is awake and responsive . Constitutional: no complaints Exam/Review of Systems Vital Signs Vitals Vital Signs Date Time Temp Pulse Resp B/P Pulse Ox O2 Delivery O2 Flow Rate FiO2 10/23/16 07:32 85 20 96 Nasal Cannula 3.0 10/23/16 07:29 97.7 112/56 10/19/16 15:15 28 Intake and Output 10/22/16 10/22/16 10/23/16 14:59 22:59 06:59 Intake Total 180 ml 120 ml 360 ml Output Total 200 ml 100 ml Balance 180 ml -80 ml 260 ml Exam Constitutional: alert Respiratory: clear to auscultation, diminished breath sounds Cardiovascular: regular rate and rhythm Gastrointestinal: soft Extremities: edema Results Result Diagram: 10/23/16 0515 10/23/16 0515 Results 24 hrs Laboratory Tests Test 10/22/16 12:11 10/22/16 17:37 10/22/16 22:07 10/23/16 01:31 Bedside Glucose 117 124 175 182 Test 10/23/16 05:15 10/23/16 06:06 10/23/16 09:07 White Blood Count 9.8 Red Blood Count 2.74 L Hemoglobin 8.2 L Hematocrit 28.9 L Mean Corpuscular Volume 105.5 H Mean Corpuscular Hemoglobin 29.9 Mean Corpuscular Hemoglobin Concent 28.4 L Red Cell Distribution Width 27.0 H Platelet Count 189 Mean Platelet Volume 10.8 H Neutrophils % 83.4 H Lymphocytes % 7.8 L Monocytes % 6.6 Eosinophils % 0.8 Basophils % 0.1 Nucleated Red Blood Cells % 0.8 H Neutrophils # 8.1 H Lymphocytes # 0.8 Monocytes # 0.6 Eosinophils # 0.1 Basophils # 0.0 Nucleated Red Blood Cells # 0.1 H Prothrombin Time 15.1 H Prothrombin Time Ratio 1.2 INR International Normalized Ratio 1.18 Sodium Level 137 Potassium Level 3.4 L Chloride Level 103 Carbon Dioxide Level 25 Anion Gap 12 Blood Urea Nitrogen 49 #H Creatinine 2.21 H Glucose Level 147 Calcium Level 7.3 L Bedside Glucose 150 184 Medications Medications Current Medications Acetaminophen (Tylenol Liquid) 650 mg Q4H PRN NGT PAIN AND OR ELEVATED TEMP Last administered on 09/27/16 05:14; Admin Dose 650 MG; Start 09/21/16 at 02:00 Eye Lubricant (Artificial Tears Oph) 2 drop QID BOTH EYES Last administered on 10/23/16 09:11; Admin Dose 2 DROP; Start 09/21/16 at 09:00 Atorvastatin Calcium (Lipitor) 80 mg HS NGT Last administered on 10/22/16 22: 10; Admin Dose 80 MG; Start 09/22/16 at 21:00 Pantoprazole (Protonix Iv) 40 mg AM IV Last administered on 10/23/16 09:10; Admin Dose 40 MG; Start 09/26/16 at 09:00 Epoetin Raj (Epogen (Esrd)) 10,000 units TuThSa@17 SC Last administered on 17:35; Admin Dose 10,000 UNITS; Start 09/26/16 at 17:00 IV Flush (NS 10 ml) 10 ml PRN PRN IV IV PROTOCOL; Start 09/26/16 at 17:30 Clopidogrel Bisulfate (plaVIX) 75 mg DAILY NGT Last administered on 10/23/16 09:10; Admin Dose 75 MG; Start 09/27/16 at 09:00 Morphine Sulfate (morphine) 2 mg Q4H PRN IV PAIN Last administered on 12:10; Admin Dose 2 MG; Start 09/28/16 at 16:00 Lactobacillus Acidoph/Bulgaricus (Floranex) 1 tab TID PO Last administered on 09:10; Admin Dose 1 TAB; Start 10/09/16 at 21:00 Miscellaneous Information 1 ea NOTE XX ; Start 10/09/16 at 20:30 Glucose (Glutose) 15 gm Q15M PRN PO DECREASED GLUCOSE; Start 10/09/16 at 20:30 Glucose (Glutose) 22.5 gm Q15M PRN PO DECREASED GLUCOSE; Start 10/09/16 at 20:30 Dextrose (D50w Syringe) 25 ml Q15M PRN IV DECREASED GLUCOSE Last administered on 10/14/16 00:31; Admin Dose 25 ML; Start 10/09/16 at 20:30 Dextrose (D50w Syringe) 50 ml Q15M PRN IV DECREASED GLUCOSE Last administered on 10/11/16 17:37; Admin Dose 50 ML; Start 10/09/16 at 20:30 Glucagon (Glucagen) 1 mg Q15M PRN IM DECREASED GLUCOSE; Start 10/09/16 at 20:30 Glucose (Glutose) 15 gm Q15M PRN BUCCAL DECREASED GLUCOSE; Start 10/09/16 at 20: 30 Heparin Sodium (Porcine) (Heparin (5000 Units/0.5 ml)) 5,000 unit Q12 SC Last administered on 10/23/16 09:12; Admin Dose 5,000 UNIT; Start 10/11/16 at 21:00 Metoclopramide HCl (Reglan) 5 mg Q6 IV Last administered on 10/23/16 06:04; Admin Dose 5 MG; Start 10/14/16 at 12:00 Calcium Carbonate (Tums) 500 mg TID NGT Last administered on 10/23/16 09:10; Admin Dose 500 MG; Start 10/15/16 at 21:00 Insulin Glargine (Lantus) 26 unit DAILY@08 SC Last administered on 10/23/16 09 :14; Admin Dose 26 UNIT; Start 10/17/16 at 08:00 Insulin Aspart (Novolog Insulin Pen) NOVOLOG *MODERATE* ALGORI... Q4 SC Last administered on 10/23/16 09:13; Admin Dose 4 UNIT; Start 10/16/16 at 13:00 Lorazepam (Ativan) 0.5 mg TID PRN PO ANXIETY Last administered on 10/22/16 15: 48; Admin Dose 0.5 MG; Start 10/19/16 at 17:30 Metoprolol Tartrate (Lopressor) 25 mg BID PO Last administered on 10/23/16 09: 11; Admin Dose 25 MG; Start 10/20/16 at 21:00 Warfarin Sodium (Coumadin) 3 mg DAILY@17 GTB Last administered on 10/22/16 17: 34; Admin Dose 3 MG; Start 10/20/16 at 17:00 Lactulose (Enulose) 20 gm BID PRN PO CONSTIPATION; Start 10/23/16 at 10:30 DAMIR MARTINEZ MD Oct 23, 2016 10:11
[2016-10-23] MEDS: LACTULOSE 30ML CUP PO PRN (12:57)
--- NOTE | 2016-10-23 16:44 | PN ---
Date/Time of Note Date/Time of Note DATE: 10/23/16 TIME: 16:36 Assessment/Plan VTE Prophylaxis VTE Prophylaxis Intervention: heparin, other (coum) Lines/Catheters IV Catheter Type (from Nrsg): PICC Line Central line still needed: No Urinary Cath still in place: Yes Reason Cath still needed: other (indicate) (musc weak, still more time in bed) Assessment/Plan Assessment/Plan 1. cad/ pad 2. s/p pneumonia, still w/ effusion, still shallow breathing 3. arf-- dialysis, improving/ edema 4. dm/ anemia 5. musc weak/ obesity ---per renal, dialysis, epogen ---per cards, d/c plavix ---per pulm, aggressive RT ---add lasix when not having dialysis ---replace calc & k ---air mattress, aggressive PT/OT ---spoken w/ one daughter, we will hold off on Celeste rx for now ---inc coum 5mg tonight Subjective 24 Hr Interval Summary Free Text/Dictation "bad" not happy to be weak, bed bound, angry Exam/Review of Systems Vital Signs Vitals Vital Signs Date Time Temp Pulse Resp B/P Pulse Ox O2 Delivery O2 Flow Rate FiO2 10/23/16 14:15 3.0 10/23/16 14:15 Nasal Cannula 10/23/16 07:32 85 20 96 10/23/16 07:29 97.7 112/56 10/19/16 15:15 28 Intake and Output 10/22/16 10/22/16 10/23/16 15:00 23:00 07:00 Intake Total 180 ml 120 ml 360 ml Output Total 200 ml 100 ml Balance 180 ml -80 ml 260 ml Exam more voice heard obese flat affect dry mouth+ rr diast m+ dec bs bibasilar a few toes blue black+ Results Result Diagram: 10/23/1615 10/23/1615 Results 24 hrs Laboratory Tests Test 10/22/16 17:37 10/22/16 22:07 10/23/16 01:31 10/23/16 05:15 Bedside Glucose 124 175 182 White Blood Count 9.8 Red Blood Count 2.74 L Hemoglobin 8.2 L Hematocrit 28.9 L Mean Corpuscular Volume 105.5 H Mean Corpuscular Hemoglobin 29.9 Mean Corpuscular Hemoglobin Concent 28.4 L Red Cell Distribution Width 27.0 H Platelet Count 189 Mean Platelet Volume 10.8 H Neutrophils % 83.4 H Lymphocytes % 7.8 L Monocytes % 6.6 Eosinophils % 0.8 Basophils % 0.1 Nucleated Red Blood Cells % 0.8 H Neutrophils # 8.1 H Lymphocytes # 0.8 Monocytes # 0.6 Eosinophils # 0.1 Basophils # 0.0 Nucleated Red Blood Cells # 0.1 H Prothrombin Time 15.1 H Prothrombin Time Ratio 1.2 INR International Normalized Ratio 1.18 Sodium Level 137 Potassium Level 3.4 L Chloride Level 103 Carbon Dioxide Level 25 Anion Gap 12 Blood Urea Nitrogen 49 #H Creatinine 2.21 H Glucose Level 147 Calcium Level 7.3 L Test 10/23/16 06:06 10/23/16 09:07 10/23/16 13:04 Bedside Glucose 150 184 161 Medications Medications Current Medications Acetaminophen (Tylenol Liquid) 650 mg Q4H PRN NGT PAIN AND OR ELEVATED TEMP Last administered on 09/27/16 05:14; Admin Dose 650 MG; Start 09/21/16 at 02:00 Eye Lubricant (Artificial Tears Oph) 2 drop QID BOTH EYES Last administered on 10/23/16 12:57; Admin Dose 2 DROP; Start 09/21/16 at 09:00 Atorvastatin Calcium (Lipitor) 80 mg HS NGT Last administered on 10/22/16 22: 10; Admin Dose 80 MG; Start 09/22/16 at 21:00 Pantoprazole (Protonix Iv) 40 mg AM IV Last administered on 10/23/16 09:10; Admin Dose 40 MG; Start 09/26/16 at 09:00 Epoetin Raj (Epogen (Esrd)) 10,000 units TuThSa@17 SC Last administered on 17:35; Admin Dose 10,000 UNITS; Start 09/26/16 at 17:00 IV Flush (NS 10 ml) 10 ml PRN PRN IV IV PROTOCOL; Start 09/26/16 at 17:30 Clopidogrel Bisulfate (plaVIX) 75 mg DAILY NGT Last administered on 10/23/16 09:10; Admin Dose 75 MG; Start 09/27/16 at 09:00 Morphine Sulfate (morphine) 2 mg Q4H PRN IV PAIN Last administered on 12:10; Admin Dose 2 MG; Start 09/28/16 at 16:00 Lactobacillus Acidoph/Bulgaricus (Floranex) 1 tab TID PO Last administered on 12:57; Admin Dose 1 TAB; Start 10/09/16 at 21:00 Miscellaneous Information 1 ea NOTE XX ; Start 10/09/16 at 20:30 Glucose (Glutose) 15 gm Q15M PRN PO DECREASED GLUCOSE; Start 10/09/16 at 20:30 Glucose (Glutose) 22.5 gm Q15M PRN PO DECREASED GLUCOSE; Start 10/09/16 at 20:30 Dextrose (D50w Syringe) 25 ml Q15M PRN IV DECREASED GLUCOSE Last administered on 10/14/16 00:31; Admin Dose 25 ML; Start 10/09/16 at 20:30 Dextrose (D50w Syringe) 50 ml Q15M PRN IV DECREASED GLUCOSE Last administered on 10/11/16 17:37; Admin Dose 50 ML; Start 10/09/16 at 20:30 Glucagon (Glucagen) 1 mg Q15M PRN IM DECREASED GLUCOSE; Start 10/09/16 at 20:30 Glucose (Glutose) 15 gm Q15M PRN BUCCAL DECREASED GLUCOSE; Start 10/09/16 at 20: 30 Heparin Sodium (Porcine) (Heparin (5000 Units/0.5 ml)) 5,000 unit Q12 SC Last administered on 10/23/16 09:12; Admin Dose 5,000 UNIT; Start 10/11/16 at 21:00 Metoclopramide HCl (Reglan) 5 mg Q6 IV Last administered on 10/23/16 12:57; Admin Dose 5 MG; Start 10/14/16 at 12:00 Calcium Carbonate (Tums) 500 mg TID NGT Last administered on 10/23/16 12:57; Admin Dose 500 MG; Start 10/15/16 at 21:00 Insulin Glargine (Lantus) 26 unit DAILY@08 SC Last administered on 10/23/16 09 :14; Admin Dose 26 UNIT; Start 10/17/16 at 08:00 Insulin Aspart (Novolog Insulin Pen) NOVOLOG *MODERATE* ALGORI... Q4 SC Last administered on 10/23/16 13:15; Admin Dose 2 UNIT; Start 10/16/16 at 13:00 Lorazepam (Ativan) 0.5 mg TID PRN PO ANXIETY Last administered on 10/22/16 15: 48; Admin Dose 0.5 MG; Start 10/19/16 at 17:30 Metoprolol Tartrate (Lopressor) 25 mg BID PO Last administered on 10/23/16 09: 11; Admin Dose 25 MG; Start 10/20/16 at 21:00 Warfarin Sodium (Coumadin) 3 mg DAILY@17 GTB Last administered on 10/22/16 17: 34; Admin Dose 3 MG; Start 10/20/16 at 17:00 Lactulose (Enulose) 20 gm BID PRN PO CONSTIPATION Last administered on 12:57; Admin Dose 20 GM; Start 10/23/16 at 10:30 SHAMA LOPEZ MD Oct 23, 2016 16:44
[2016-10-23] MEDS ORDERED: WARFARIN 5 MG TAB GTB ONE (17:00)
[2016-10-23] MEDS ORDERED: CALCIUM GLUCONATE 10% 2 GM in SOD CHLORIDE 0.9% 100 ML IVPB ONE (18:30)
[2016-10-23] MEDS ORDERED: POTASSIUM CHLORIDE 20 MEQ in SOD CHLORIDE 0.9% 100 ML IVPB ONE (18:30)
[2016-10-23 19:24] VITALS: BP 111/56; RESP 14
--- NOTE | 2016-10-23 20:21 | CONS ---
Date/Time of Note Date/Time of Note DATE: 10/23/16 TIME: 20:18 Consult Date/Type/Reason Admit Date/Time Sep 20, 2016 at 19:21 Initial Consult Date 10/22/16 Type of Consultation: Endovascular Interventionalist Ordering Provider: ZANDRA ROBISON MD, [facility] Objective Vital Signs Date Time Temp Pulse Resp B/P Pulse Ox O2 Delivery O2 Flow Rate FiO2 10/23/16 19:24 97.6 87 14 111/56 100 10/23/16 14:15 3.0 10/23/16 14:15 Nasal Cannula 10/19/16 15:15 28 Intake and Output 10/22/16 10/22/16 10/23/16 15:00 23:00 07:00 Intake Total 180 ml 120 ml 360 ml Output Total 200 ml 100 ml Balance 180 ml -80 ml 260 ml Results/Medications Result Diagram: 10/23/16 0515 10/23/16 0515 Results 24 hrs Laboratory Tests Test 10/22/16 22:07 10/23/16 01:31 10/23/16 05:15 10/23/16 06:06 Bedside Glucose 175 182 150 White Blood Count 9.8 Red Blood Count 2.74 L Hemoglobin 8.2 L Hematocrit 28.9 L Mean Corpuscular Volume 105.5 H Mean Corpuscular Hemoglobin 29.9 Mean Corpuscular Hemoglobin Concent 28.4 L Red Cell Distribution Width 27.0 H Platelet Count 189 Mean Platelet Volume 10.8 H Neutrophils % 83.4 H Lymphocytes % 7.8 L Monocytes % 6.6 Eosinophils % 0.8 Basophils % 0.1 Nucleated Red Blood Cells % 0.8 H Neutrophils # 8.1 H Lymphocytes # 0.8 Monocytes # 0.6 Eosinophils # 0.1 Basophils # 0.0 Nucleated Red Blood Cells # 0.1 H Prothrombin Time 15.1 H Prothrombin Time Ratio 1.2 INR International Normalized Ratio 1.18 Sodium Level 137 Potassium Level 3.4 L Chloride Level 103 Carbon Dioxide Level 25 Anion Gap 12 Blood Urea Nitrogen 49 #H Creatinine 2.21 H Glucose Level 147 Calcium Level 7.3 L Test 10/23/16 09:07 10/23/16 13:04 10/23/16 17:29 Bedside Glucose 184 161 152 Medications Current Medications Acetaminophen (Tylenol Liquid) 650 mg Q4H PRN NGT PAIN AND OR ELEVATED TEMP Last administered on 3/24/17at 05:14; Admin Dose 650 MG; Start 09/21/16 at 02:00 Eye Lubricant (Artificial Tears Oph) 2 drop QID BOTH EYES Last administered on 10/23/16 17:27; Admin Dose 2 DROP; Start 09/21/16 at 09:00 Atorvastatin Calcium (Lipitor) 80 mg HS NGT Last administered on 10/22/16 22: 10; Admin Dose 80 MG; Start 09/22/16 at 21:00 Pantoprazole (Protonix Iv) 40 mg AM IV Last administered on 10/23/16 09:10; Admin Dose 40 MG; Start 09/26/16 at 09:00 Epoetin Raj (Epogen (Esrd)) 10,000 units TuThSa@17 SC Last administered on 17:35; Admin Dose 10,000 UNITS; Start 09/26/16 at 17:00 IV Flush (NS 10 ml) 10 ml PRN PRN IV IV PROTOCOL; Start 09/26/16 at 17:30 Morphine Sulfate (morphine) 2 mg Q4H PRN IV PAIN Last administered on 12:10; Admin Dose 2 MG; Start 09/28/16 at 16:00 Lactobacillus Acidoph/Bulgaricus (Floranex) 1 tab TID PO Last administered on 12:57; Admin Dose 1 TAB; Start 10/09/16 at 21:00 Miscellaneous Information 1 ea NOTE XX ; Start 10/09/16 at 20:30 Dextrose (D50w Syringe) 25 ml Q15M PRN IV DECREASED GLUCOSE Last administered on 10/14/16 00:31; Admin Dose 25 ML; Start 10/09/16 at 20:30 Glucagon (Glucagen) 1 mg Q15M PRN IM DECREASED GLUCOSE; Start 10/09/16 at 20:30 Glucose (Glutose) 15 gm Q15M PRN BUCCAL DECREASED GLUCOSE; Start 10/09/16 at 20: 30 Heparin Sodium (Porcine) (Heparin (5000 Units/0.5 ml)) 5,000 unit Q12 SC Last administered on 10/23/16 09:12; Admin Dose 5,000 UNIT; Start 10/11/16 at 21:00 Metoclopramide HCl (Reglan) 5 mg Q6 IV Last administered on 10/23/16 17:26; Admin Dose 5 MG; Start 10/14/16 at 12:00 Calcium Carbonate (Tums) 500 mg TID NGT Last administered on 10/23/16 12:57; Admin Dose 500 MG; Start 10/15/16 at 21:00 Insulin Glargine (Lantus) 26 unit DAILY@08 SC Last administered on 10/23/16 09 :14; Admin Dose 26 UNIT; Start 10/17/16 at 08:00 Insulin Aspart (Novolog Insulin Pen) NOVOLOG *MODERATE* ALGORI... Q4 SC Last administered on 10/23/16 17:39; Admin Dose 2 UNIT; Start 10/16/16 at 13:00 Lorazepam (Ativan) 0.5 mg TID PRN PO ANXIETY Last administered on 10/22/16 15: 48; Admin Dose 0.5 MG; Start 10/19/16 at 17:30 Metoprolol Tartrate (Lopressor) 25 mg BID PO Last administered on 10/23/16 09: 11; Admin Dose 25 MG; Start 10/20/16 at 21:00 Lactulose 20 gm 20 gm BID PRN PO CONSTIPATION Last administered on 10/23/16 12 :57; Admin Dose 20 GM; Start 10/23/16 at 10:30 Potassium Chloride 20 meq/ Sodium Chloride 110 ml @ 55 mls/hr ONCE ONCE IVPB ; Start 10/23/16 at 18:30; Stop 10/23/16 at 20:29 Calcium Gluconate/ Sodium Chloride (Ca Gluc/NS) 120 ml @ 60 mls/hr ONCE ONCE IVPB Last administered on 10/23/16 18:58; Admin Dose 60 MLS/HR; Start at 18:30; Stop 10/23/16 at 20:29 Nortriptyline HCl (Aventyl) 50 mg HS PO ; Start 10/23/16 at 21:00 Assessment/Plan Chief Complaint/Hosp Course Patient is 71 year old F with PMH of HTn, HLD, 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 Patient was seen and examined at bedside. She has NGT placed so her speech was not that clear. she does feel overall weak but stable. denies any CP or SOB. she has resting leg pain on and off according to her but there is clear gangrene on toes. its not dry yet but in the process. Problems: Additional Assessment/Plan Patient with micorvascualr PAD gangrene Could be cholesterol emboli as well. Continue med mx and will plan to do further PAD work up as out pt once she becomes stable. Plan for PT out of bed failed VIRGINIE Vidales MD Oct 23, 2016 20:20
[2016-10-23] MEDS: ATORVASTATIN 80 MG TAB NGT SCH (20:58)
[2016-10-23] MEDS: LORAZEPAM 0.5 MG TAB PO PRN (20:58)
[2016-10-23] MEDS ORDERED: NORTRIPTYLINE 25 MG CAP PO SCH (21:00)
[2016-10-23] MEDS: NORTRIPTYLINE 25 MG CAP PO SCH (21:00)
[2016-10-24] MEDS: METOCLOPRAMIDE 10 MG INJ IV SCH ×4 (00:33→17:28)
[2016-10-24] MEDS: NORTRIPTYLINE 25 MG CAP PO SCH ×2 (00:34→21:11)
[2016-10-24] MEDS: INSULIN ASPART [NOVOLOG] 3 ML PEN SC SCH ×6 (00:36→21:00)
[2016-10-24] MEDS: IPRATROPIUM (NEB) 0.5 MG/2.5 ML AMP HHN SCH ×4 (01:06→20:09)
[2016-10-24] MEDS: LEVALBUTEROL (NEB) 1.25 MG/0.5 ML AMP HHN SCH ×4 (01:06→20:08)
[2016-10-24] MEDS: ACETYLCYSTEINE 20% 4 ML VIAL NEB SCH ×4 (01:07→20:09)
[2016-10-24 05:57] LABS: ADD SCAN DIFF NO
[2016-10-24 06:25] LABS: ABNORMAL IP MESSAGE 1; BASOPHILS % 0.1 % (0.0-2.0); EOSINOPHILS # 0.1 10^3/ul (0.0-0.5); EOSINOPHILS % 0.9 % (0.0-7.0); HEMATOCRIT 29.5 % (37.0-47.0); HEMOGLOBIN 8.5 g/dl (12.0-16.0); INR 1.5; LYMPHOCYTES # 0.8 10^3/ul (0.8-2.9); LYMPHOCYTES % 8.2 % (15.0-51.0); MEAN CORPUSCULAR HEMOGLOBIN 30.4 pg (29.0-33.0); MEAN CORPUSCULAR HGB CONC 28.8 g/dl (32.0-37.0); MEAN CORPUSCULAR VOLUME 105.4 fl (82.0-101.0); MEAN PLATELET VOLUME 10.4 fl (7.4-10.4); MONOCYTE # 0.6 10^3/ul (0.3-0.9); MONOCYTES % 6.4 % (0.0-11.0); NEUTROPHILS % 82.9 % (39.0-77.0); NUCLEATED RED BLOOD CELLS # 0.1 10^3/ul (0.0-0.0); NUCLEATED RED BLOOD CELLS% 0.9 /100WBC (0.0-0.0); PLATELET COUNT 222 10^3/UL (140-415); PROTIME 18.2 Sec (12.2-14.2); PT RATIO 1.4; RED CELL DISTRIBUTION WIDTH 26.4 % (11.5-14.5); WHITE BLOOD COUNT 9.7 10^3/ul (4.8-10.8)
[2016-10-24 06:30] LABS: ALBUMIN 2.2 g/dl (3.3-4.9); POTASSIUM 4.4 mmol/L (3.5-5.1)
[2016-10-24 06:32] LABS: CREATININE 2.64 mg/dl (0.44-1.00)
[2016-10-24 06:33] LABS: ALBUMIN/GLOBULIN RATIO 0.62; BILIRUBIN,INDIRECT 0.2 mg/dl (0-1.1); BILIRUBIN,TOTAL 0.2 mg/dl (0.2-1.3); TOTAL PROTEIN 5.7 g/dl (6.1-8.1)
[2016-10-24 07:30] VITALS: BP 105/56; RESP 16
[2016-10-24] MEDS: LORAZEPAM 0.5 MG TAB PO PRN (09:56)
[2016-10-24] MEDS: CALCIUM CARBONATE 500 MG CHEW TAB NGT SCH ×3 (09:56→21:11)
[2016-10-24] MEDS: PANTOPRAZOLE 40 MG INJ IV SCH (09:56)
[2016-10-24] MEDS: LACTOBACILLUS CHEW TAB PO SCH ×3 (09:56→21:11)
--- NOTE | 2016-10-24 09:56 | CONS ---
Date/Time of Note Date/Time of Note DATE: 10/24/16 TIME: 09:54 Assessment/Plan Assessment/Plan Chief Complaint/Hosp Course 1. Acute Renal Failure due to ATN , oliguric . Her BUN is lower . She has not had hemodialysis for several days. I am trying to hold off on dialysis and to see if her kidneys would start to work again. Her labs today are acceptable however I am concerned about her fluid balance. I will check a chest x-ray to assess her pulmonary congestion. 2. ALOC , she is improved 3. liver enzyme elevation due to anoxia , enzymes are decreasing . 4. hypotension , she is now normotensive off pressors. 5. hypocalcemia/hypoalbuminemia , calcium is higher 6. anemia , she has not had any recent GI bleeding . 7. peripheral vascular disease . 8. respiratory failure , off ventilator . 9 dysphagia , she is on tube feeding 10. she is now on 3 anticoagulants . Will need review by cardiology . Problems: Consultation Date/Type/Reason Admit Date/Time Sep 20, 2016 at 19:21 Initial Consult Date 09/23/16 Type of Consultation: Endovascular Interventionalist Referring Provider: ZANDRA ROBISON MD, [facility] 24 HR Interval Summary Free Text/Dictation She is awake. She is responding and talking. She has a nasogastric tube in place. Constitutional: no complaints Exam/Review of Systems Vital Signs Vitals Vital Signs Date Time Temp Pulse Resp B/P Pulse Ox O2 Delivery O2 Flow Rate FiO2 10/24/16 08:06 99 3.0 10/24/16 08:06 81 16 Nasal Cannula 10/24/16 07:30 98.0 105/56 Intake and Output 10/23/16 10/23/16 10/24/16 15:00 23:00 07:00 Intake Total 230 ml 520 ml Output Total 50 ml 150 ml Balance 180 ml 370 ml Exam Constitutional: alert Respiratory: clear to auscultation, normal air movement Cardiovascular: regular rate and rhythm Gastrointestinal: soft Extremities: edema Results Result Diagram: 10/24/16 0539 10/24/16 0529 Results 24 hrs Laboratory Tests Test 10/23/16 13:04 10/23/16 17:29 10/23/16 20:55 10/24/16 00:35 Bedside Glucose 161 152 135 130 Test 10/24/16 05:27 10/24/16 05:29 10/24/16 05:31 10/24/16 05:39 Bedside Glucose 75 132 Sodium Level 136 Potassium Level 4.4 Chloride Level 100 Carbon Dioxide Level 26 Anion Gap 14 Blood Urea Nitrogen 65 H Creatinine 2.64 H Glucose Level 126 Calcium Level 8.0 L Total Bilirubin 0.2 Direct Bilirubin 0.00 Indirect Bilirubin 0.2 Aspartate Amino Transf (AST/SGOT) 103 H Alanine Aminotransferase (ALT/SGPT) 119 H Alkaline Phosphatase 241 H Total Protein 5.7 L Albumin 2.2 L Globulin 3.50 H Albumin/Globulin Ratio 0.62 White Blood Count 9.7 Red Blood Count 2.80 L Hemoglobin 8.5 L Hematocrit 29.5 L Mean Corpuscular Volume 105.4 H Mean Corpuscular Hemoglobin 30.4 Mean Corpuscular Hemoglobin Concent 28.8 L Red Cell Distribution Width 26.4 H Platelet Count 222 Mean Platelet Volume 10.4 Neutrophils % 82.9 H Lymphocytes % 8.2 L Monocytes % 6.4 Eosinophils % 0.9 Basophils % 0.1 Nucleated Red Blood Cells % 0.9 H Neutrophils # 8.0 H Lymphocytes # 0.8 Monocytes # 0.6 Eosinophils # 0.1 Basophils # 0.0 Nucleated Red Blood Cells # 0.1 H Prothrombin Time 18.2 #H Prothrombin Time Ratio 1.4 INR International Normalized Ratio 1.50 Test 10/24/16 08:00 Bedside Glucose 139 Medications Medications Current Medications Acetaminophen (Tylenol Liquid) 650 mg Q4H PRN NGT PAIN AND OR ELEVATED TEMP Last administered on 09/27/16 05:14; Admin Dose 650 MG; Start 09/21/16 at 02:00 Eye Lubricant (Artificial Tears Oph) 2 drop QID BOTH EYES Last administered on 10/23/16 21:07; Admin Dose 2 DROP; Start 09/21/16 at 09:00 Atorvastatin Calcium (Lipitor) 80 mg HS NGT Last administered on 10/23/16 20: 58; Admin Dose 80 MG; Start 09/22/16 at 21:00 Pantoprazole (Protonix Iv) 40 mg AM IV Last administered on 10/23/16 09:10; Admin Dose 40 MG; Start 09/26/16 at 09:00 Epoetin Raj (Epogen (Esrd)) 10,000 units TuThSa@17 SC Last administered on 17:35; Admin Dose 10,000 UNITS; Start 09/26/16 at 17:00 IV Flush (NS 10 ml) 10 ml PRN PRN IV IV PROTOCOL; Start 09/26/16 at 17:30 Morphine Sulfate (morphine) 2 mg Q4H PRN IV PAIN Last administered on 12:10; Admin Dose 2 MG; Start 09/28/16 at 16:00 Lactobacillus Acidoph/Bulgaricus (Floranex) 1 tab TID PO Last administered on 20:58; Admin Dose 1 TAB; Start 10/09/16 at 21:00 Miscellaneous Information 1 ea NOTE XX ; Start 10/09/16 at 20:30 Dextrose (D50w Syringe) 25 ml Q15M PRN IV DECREASED GLUCOSE Last administered on 10/14/16 00:31; Admin Dose 25 ML; Start 10/09/16 at 20:30 Glucagon (Glucagen) 1 mg Q15M PRN IM DECREASED GLUCOSE; Start 10/09/16 at 20:30 Glucose (Glutose) 15 gm Q15M PRN BUCCAL DECREASED GLUCOSE; Start 10/09/16 at 20: 30 Heparin Sodium (Porcine) (Heparin (5000 Units/0.5 ml)) 5,000 unit Q12 SC Last administered on 10/23/16 21:14; Admin Dose 5,000 UNIT; Start 10/11/16 at 21:00 Metoclopramide HCl (Reglan) 5 mg Q6 IV Last administered on 10/24/16 05:35; Admin Dose 5 MG; Start 10/14/16 at 12:00 Calcium Carbonate (Tums) 500 mg TID NGT Last administered on 10/23/16 20:59; Admin Dose 500 MG; Start 10/15/16 at 21:00 Insulin Glargine (Lantus) 26 unit DAILY@08 SC Last administered on 10/23/16 09 :14; Admin Dose 26 UNIT; Start 10/17/16 at 08:00 Insulin Aspart (Novolog Insulin Pen) NOVOLOG *MODERATE* ALGORI... Q4 SC Last administered on 10/23/16 17:39; Admin Dose 2 UNIT; Start 10/16/16 at 13:00 Lorazepam (Ativan) 0.5 mg TID PRN PO ANXIETY Last administered on 10/23/16 20: 58; Admin Dose 0.5 MG; Start 10/19/16 at 17:30 Metoprolol Tartrate (Lopressor) 25 mg BID PO Last administered on 10/23/16 20: 58; Admin Dose 25 MG; Start 10/20/16 at 21:00 Lactulose (Enulose) 20 gm BID PRN PO CONSTIPATION Last administered on 12:57; Admin Dose 20 GM; Start 10/23/16 at 10:30 Nortriptyline HCl (Aventyl) 50 mg HS PO Last administered on 10/24/16 00:34; Admin Dose 50 MG; Start 10/23/16 at 21:00 DAMIR MARTINEZ MD Oct 24, 2016 09:56
[2016-10-24] MEDS: METOPROLOL 25 MG TAB PO SCH ×2 (09:57→21:00)
[2016-10-24] MEDS: ARTIFICIAL TEARS 15 ML OPH BOTH EYES SCH ×4 (09:57→21:21)
[2016-10-24] MEDS: INSULIN GLARGINE [LANtus] 3 ML PEN SC SCH (10:24)
[2016-10-24] MEDS: HEPARIN 5,000 UNIT/0.5 ML VIAL SC SCH (10:24)
--- NOTE | 2016-10-24 11:07 | RADRPT ---
PROCEDURE: XR Chest. CLINICAL INDICATION: SOB TECHNIQUE: Single frontal view of the chest was obtained. COMPARISON: Chest x-ray from 10/17/2016 FINDINGS: A right-sided Perma-Cath, enteric tube, and left-sided PICC line are unchanged in position. The heart and mediastinum are within normal limits. There is increased opacification of the right hemithorax, likely due to a layering effusion which is at least moderate in size. Increased prominence of patchy opacities in the right lung may be due to atelectasis and / or worsening infiltrates. There is a stable small left pleural effusion with retr ocardiac opacity due to atelectasis, infiltrate, and / or effusion. There is increased prominence of interstitial markings in the left lung, likely due to increased con gestive changes. IMPRESSION: Likely increased layering effusion on the right as well as a mildly increased congestive changes. In creased prominence of patchy opacities in the right lung may be due to atelectasis and / or worsenin g infiltrates. Stable small left pleural effusion and retrocardiac opacity due to atelectasis, infiltrate, and / or effusion. Lines and support tubes are unchanged. RPTAT: EE Physician Suzy Date Time Electronically viewed and signed by Physician Suzy on 10/24/2016 11:07 /
--- NOTE | 2016-10-24 14:16 | PN ---
Date/Time of Note Date/Time of Note DATE: 10/24/16 TIME: 14:11 Assessment/Plan VTE Prophylaxis VTE Prophylaxis Intervention: other (coum) Lines/Catheters IV Catheter Type (from Nrsg): Permacath Central line still needed: No Urinary Cath still in place: Yes Reason Cath still needed: terminal illness/intractable pain Assessment/Plan Assessment/Plan 1. cad/ pad 2. s/p pneumonia/ rld 3. rob--no dialysis for a few days now/ anemia/ edema 4. dm 5. weak musc/ dysphagia/ bed bound still 6. depression ---per cards ---per pulm, cont aggressive RT ---per renal, cont epogen ---full PT exercises ---add lexapro via ngt ---swallow eval for feeding advance ---calc & alb supps ---coum 5mg tonight Subjective 24 Hr Interval Summary Free Text/Dictation body feels heavy, sob Exam/Review of Systems Vital Signs Vitals Vital Signs Date Time Temp Pulse Resp B/P Pulse Ox O2 Delivery O2 Flow Rate FiO2 10/24/16 08:06 99 3.0 10/24/16 08:06 81 16 Nasal Cannula 10/24/16 07:30 98.0 105/56 Intake and Output 10/23/16 10/23/16 10/24/16 15:00 23:00 07:00 Intake Total 230 ml 520 ml Output Total 50 ml 150 ml Balance 180 ml 370 ml Exam weak coughs, still using all access musc to breathe, dec bs rt more rr diast m+ global ext edema+ few toes blue black+ obese+ still fed via ngt Results Result Diagram: 10/24/16 0539 10/24/16 0529 Results 24 hrs Laboratory Tests Test 10/23/16 17:29 10/23/16 20:55 10/24/16 00:35 10/24/16 05:27 Bedside Glucose 152 135 130 75 Test 10/24/16 05:29 10/24/16 05:31 10/24/16 05:39 10/24/16 08:00 Sodium Level 136 Potassium Level 4.4 Chloride Level 100 Carbon Dioxide Level 26 Anion Gap 14 Blood Urea Nitrogen 65 H Creatinine 2.64 H Glucose Level 126 Calcium Level 8.0 L Total Bilirubin 0.2 Direct Bilirubin 0.00 Indirect Bilirubin 0.2 Aspartate Amino Transf (AST/SGOT) 103 H Alanine Aminotransferase (ALT/SGPT) 119 H Alkaline Phosphatase 241 H Total Protein 5.7 L Albumin 2.2 L Globulin 3.50 H Albumin/Globulin Ratio 0.62 Bedside Glucose 132 139 White Blood Count 9.7 Red Blood Count 2.80 L Hemoglobin 8.5 L Hematocrit 29.5 L Mean Corpuscular Volume 105.4 H Mean Corpuscular Hemoglobin 30.4 Mean Corpuscular Hemoglobin Concent 28.8 L Red Cell Distribution Width 26.4 H Platelet Count 222 Mean Platelet Volume 10.4 Neutrophils % 82.9 H Lymphocytes % 8.2 L Monocytes % 6.4 Eosinophils % 0.9 Basophils % 0.1 Nucleated Red Blood Cells % 0.9 H Neutrophils # 8.0 H Lymphocytes # 0.8 Monocytes # 0.6 Eosinophils # 0.1 Basophils # 0.0 Nucleated Red Blood Cells # 0.1 H Prothrombin Time 18.2 #H Prothrombin Time Ratio 1.4 INR International Normalized Ratio 1.50 Test 10/24/16 12:00 Bedside Glucose 162 Medications Medications Current Medications Acetaminophen (Tylenol Liquid) 650 mg Q4H PRN NGT PAIN AND OR ELEVATED TEMP Last administered on 09/27/16 05:14; Admin Dose 650 MG; Start 09/21/16 at 02:00 Eye Lubricant (Artificial Tears Oph) 2 drop QID BOTH EYES Last administered on 10/24/16 12:23; Admin Dose 2 DROP; Start 09/21/16 at 09:00 Atorvastatin Calcium (Lipitor) 80 mg HS NGT Last administered on 10/23/16 20: 58; Admin Dose 80 MG; Start 09/22/16 at 21:00 Pantoprazole (Protonix Iv) 40 mg AM IV Last administered on 10/24/16 09:56; Admin Dose 40 MG; Start 09/26/16 at 09:00 Epoetin Raj (Epogen (Esrd)) 10,000 units TuThSa@17 SC Last administered on 17:35; Admin Dose 10,000 UNITS; Start 09/26/16 at 17:00 IV Flush (NS 10 ml) 10 ml PRN PRN IV IV PROTOCOL; Start 09/26/16 at 17:30 Morphine Sulfate (morphine) 2 mg Q4H PRN IV PAIN Last administered on 12:10; Admin Dose 2 MG; Start 09/28/16 at 16:00 Lactobacillus Acidoph/Bulgaricus (Floranex) 1 tab TID PO Last administered on 12:22; Admin Dose 1 TAB; Start 10/09/16 at 21:00 Miscellaneous Information 1 ea NOTE XX ; Start 10/09/16 at 20:30 Dextrose (D50w Syringe) 25 ml Q15M PRN IV DECREASED GLUCOSE Last administered on 10/14/16 00:31; Admin Dose 25 ML; Start 10/09/16 at 20:30 Glucagon (Glucagen) 1 mg Q15M PRN IM DECREASED GLUCOSE; Start 10/09/16 at 20:30 Glucose (Glutose) 15 gm Q15M PRN BUCCAL DECREASED GLUCOSE; Start 10/09/16 at 20: 30 Metoclopramide HCl (Reglan) 5 mg Q6 IV Last administered on 10/24/16 12:22; Admin Dose 5 MG; Start 10/14/16 at 12:00 Calcium Carbonate (Tums) 500 mg TID NGT Last administered on 10/24/16 12:22; Admin Dose 500 MG; Start 10/15/16 at 21:00 Insulin Glargine (Lantus) 26 unit DAILY@08 SC Last administered on 10/24/16 10 :24; Admin Dose 26 UNIT; Start 10/17/16 at 08:00 Insulin Aspart (Novolog Insulin Pen) NOVOLOG *MODERATE* ALGORI... Q4 SC Last administered on 10/24/16 12:37; Admin Dose 2 UNIT; Start 10/16/16 at 13:00 Lorazepam (Ativan) 0.5 mg TID PRN PO ANXIETY Last administered on 10/24/16 09: 56; Admin Dose 0.5 MG; Start 10/19/16 at 17:30 Metoprolol Tartrate (Lopressor) 25 mg BID PO Last administered on 10/24/16 09: 57; Admin Dose 25 MG; Start 10/20/16 at 21:00 Lactulose (Enulose) 20 gm BID PRN PO CONSTIPATION Last administered on 12:57; Admin Dose 20 GM; Start 10/23/16 at 10:30 Nortriptyline HCl 50 mg 50 mg HS PO Last administered on 4/20/17at 00:34; Admin Dose 50 MG; Start 10/23/16 at 21:00 Calcium Gluconate 1 gm/Sodium Chloride 110 ml @ 110 mls/hr ONCE ONCE IVPB ; Start 10/24/16 at 14:30; Stop 10/24/16 at 15:29; Status UNV Albumin Human (Albumin Human 25%) 100 ml @ 100 mls/hr ONCE ONCE IV ; Start at 14:30; Stop 10/24/16 at 15:29; Status UNV Warfarin Sodium (Coumadin) 5 mg ONCE@17 ONCE NGT ; Start 10/24/16 at 17:00; Stop 10/24/16 at 17:01; Status UNV SHAMA LOPEZ MD Oct 24, 2016 14:16
[2016-10-24] MEDS ORDERED: CALCIUM GLUCONATE 10% 1 GM in SOD CHLORIDE 0.9% 100 ML IVPB ONE (14:30)
[2016-10-24] MEDS ORDERED: ALBUMIN HUMAN 25% 100 ML IV ONE (14:30)
[2016-10-24] MEDS ORDERED: HALOPERIDOL 5 MG INJ IM PRN (15:00)
[2016-10-24] MEDS: ESCITALOPRAM 10 MG TAB NGT SCH (15:28)
[2016-10-24] MEDS ORDERED: WARFARIN 5 MG TAB NGT ONE (17:00)
[2016-10-24] MEDS: EPOETIN 10000 UNITS/1 ML INJ (ESRD) SC SCH (17:30)
--- NOTE | 2016-10-24 18:55 | CONS ---
Date/Time of Note Date/Time of Note DATE: 10/24/16 TIME: 18:54 Consult Date/Type/Reason Admit Date/Time Sep 20, 2016 at 19:21 Initial Consult Date 10/22/16 Type of Consultation: Endovascular Interventionalist Ordering Provider: ZANDRA ROBISON MD, [facility] Objective Vital Signs Date Time Temp Pulse Resp B/P Pulse Ox O2 Delivery O2 Flow Rate FiO2 10/24/16 17:56 2.0 10/24/16 14:22 71 18 98 Nasal Cannula 10/24/16 07:30 98.0 105/56 Intake and Output 10/23/16 10/23/16 10/24/16 15:00 23:00 07:00 Intake Total 230 ml 520 ml Output Total 50 ml 150 ml Balance 180 ml 370 ml Results/Medications Result Diagram: 10/24/16 0539 10/24/16 0529 Results 24 hrs Laboratory Tests Test 10/23/16 20:55 10/24/16 00:35 10/24/16 05:27 10/24/16 05:29 Bedside Glucose 135 130 75 Sodium Level 136 Potassium Level 4.4 Chloride Level 100 Carbon Dioxide Level 26 Anion Gap 14 Blood Urea Nitrogen 65 H Creatinine 2.64 H Glucose Level 126 Calcium Level 8.0 L Total Bilirubin 0.2 Direct Bilirubin 0.00 Indirect Bilirubin 0.2 Aspartate Amino Transf (AST/SGOT) 103 H Alanine Aminotransferase (ALT/SGPT) 119 H Alkaline Phosphatase 241 H Total Protein 5.7 L Albumin 2.2 L Globulin 3.50 H Albumin/Globulin Ratio 0.62 Test 10/24/16 05:31 10/24/16 05:39 10/24/16 08:00 10/24/16 12:00 Bedside Glucose 132 139 162 White Blood Count 9.7 Red Blood Count 2.80 L Hemoglobin 8.5 L Hematocrit 29.5 L Mean Corpuscular Volume 105.4 H Mean Corpuscular Hemoglobin 30.4 Mean Corpuscular Hemoglobin Concent 28.8 L Red Cell Distribution Width 26.4 H Platelet Count 222 Mean Platelet Volume 10.4 Neutrophils % 82.9 H Lymphocytes % 8.2 L Monocytes % 6.4 Eosinophils % 0.9 Basophils % 0.1 Nucleated Red Blood Cells % 0.9 H Neutrophils # 8.0 H Lymphocytes # 0.8 Monocytes # 0.6 Eosinophils # 0.1 Basophils # 0.0 Nucleated Red Blood Cells # 0.1 H Prothrombin Time 18.2 #H Prothrombin Time Ratio 1.4 INR International Normalized Ratio 1.50 Test 10/24/16 17:03 Bedside Glucose 133 Medications Current Medications Acetaminophen (Tylenol Liquid) 650 mg Q4H PRN NGT PAIN AND OR ELEVATED TEMP Last administered on 09/27/16 05:14; Admin Dose 650 MG; Start 09/21/16 at 02:00 Eye Lubricant (Artificial Tears Oph) 2 drop QID BOTH EYES Last administered on 10/24/16 17:28; Admin Dose 2 DROP; Start 09/21/16 at 09:00 Atorvastatin Calcium (Lipitor) 80 mg HS NGT Last administered on 10/23/16 20: 58; Admin Dose 80 MG; Start 09/22/16 at 21:00 Pantoprazole (Protonix Iv) 40 mg AM IV Last administered on 10/24/16 09:56; Admin Dose 40 MG; Start 09/26/16 at 09:00 Epoetin Raj (Epogen (Esrd)) 10,000 units TuThSa@17 SC Last administered on 17:30; Admin Dose 10,000 UNITS; Start 09/26/16 at 17:00 IV Flush (NS 10 ml) 10 ml PRN PRN IV IV PROTOCOL; Start 09/26/16 at 17:30 Morphine Sulfate (morphine) 2 mg Q4H PRN IV PAIN Last administered on 12:10; Admin Dose 2 MG; Start 09/28/16 at 16:00 Lactobacillus Acidoph/Bulgaricus (Floranex) 1 tab TID PO Last administered on 12:22; Admin Dose 1 TAB; Start 10/09/16 at 21:00 Miscellaneous Information 1 ea NOTE XX ; Start 10/09/16 at 20:30 Dextrose (D50w Syringe) 25 ml Q15M PRN IV DECREASED GLUCOSE Last administered on 10/14/16 00:31; Admin Dose 25 ML; Start 10/09/16 at 20:30 Glucagon (Glucagen) 1 mg Q15M PRN IM DECREASED GLUCOSE; Start 10/09/16 at 20:30 Glucose (Glutose) 15 gm Q15M PRN BUCCAL DECREASED GLUCOSE; Start 10/09/16 at 20: 30 Metoclopramide HCl (Reglan) 5 mg Q6 IV Last administered on 10/24/16 17:28; Admin Dose 5 MG; Start 10/14/16 at 12:00 Calcium Carbonate (Tums) 500 mg TID NGT Last administered on 10/24/16 12:22; Admin Dose 500 MG; Start 10/15/16 at 21:00 Insulin Glargine (Lantus) 26 unit DAILY@08 SC Last administered on 10/24/16 10 :24; Admin Dose 26 UNIT; Start 10/17/16 at 08:00 Insulin Aspart (Novolog Insulin Pen) NOVOLOG *MODERATE* ALGORI... Q4 SC Last administered on 10/24/16 12:37; Admin Dose 2 UNIT; Start 10/16/16 at 13:00 Lorazepam (Ativan) 0.5 mg TID PRN PO ANXIETY Last administered on 10/24/16 09: 56; Admin Dose 0.5 MG; Start 10/19/16 at 17:30 Metoprolol Tartrate (Lopressor) 25 mg BID PO Last administered on 10/24/16 09: 57; Admin Dose 25 MG; Start 10/20/16 at 21:00 Lactulose (Enulose) 20 gm BID PRN PO CONSTIPATION Last administered on 12:57; Admin Dose 20 GM; Start 10/23/16 at 10:30 Nortriptyline HCl (Aventyl) 50 mg HS PO Last administered on 10/24/16 00:34; Admin Dose 50 MG; Start 10/23/16 at 21:00 Escitalopram Oxalate (Lexapro) 5 mg DAILY NGT Last administered on 10/24/16 15 :28; Admin Dose 5 MG; Start 10/24/16 at 14:30 Haloperidol (Haldol) 1 mg Q6H PRN IM ANXIETY; Start 10/24/16 at 15:00 Assessment/Plan Chief Complaint/Hosp Course Patient is 71 year old F with PMH of HTn, HLD, 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 Patient was seen and examined at bedside. She has NGT placed so her speech was not that clear. she does feel overall weak but stable. denies any CP or SOB. she has resting leg pain on and off according to her but there is clear gangrene on toes. its not dry yet but in the process. Problems: Additional Assessment/Plan Clinically stable had discussion with pt today over the phone once she is stalbe will plan out pt leg angio with possible intervention contineu med mx coumadin VIRGINIE JUARES MD Oct 24, 2016 18:55
[2016-10-24 20:17] VITALS: BP 94/50; RESP 17
[2016-10-24] MEDS: ATORVASTATIN 80 MG TAB NGT SCH (21:11)
[2016-10-24 21:35] VITALS: BP 109/50; PULSE 72; RESP 14
[2016-10-25] VITALS (11 sets, daily range): BP systolic 89–106; BP diastolic 43–52; PULSE 67–76; RESP 18
[2016-10-25] MEDS: METOCLOPRAMIDE 10 MG INJ IV SCH ×4 (00:43→18:09)
[2016-10-25] MEDS: INSULIN ASPART [NOVOLOG] 3 ML PEN SC SCH ×6 (00:44→20:45)
[2016-10-25] MEDS: LEVALBUTEROL (NEB) 1.25 MG/0.5 ML AMP HHN SCH ×4 (01:53→19:38)
[2016-10-25] MEDS: ACETYLCYSTEINE 20% 4 ML VIAL NEB SCH ×4 (01:53→19:38)
[2016-10-25] MEDS: IPRATROPIUM (NEB) 0.5 MG/2.5 ML AMP HHN SCH ×4 (01:53→19:38)
[2016-10-25 07:12] LABS: INR 2.18; PROTIME 24.5 Sec (12.2-14.2); PT RATIO 1.9
[2016-10-25 07:33] LABS: ADD SCAN DIFF NO
[2016-10-25 07:40] LABS: ABNORMAL IP MESSAGE 1; BASOPHILS % 0.2 % (0.0-2.0); EOSINOPHILS # 0.1 10^3/ul (0.0-0.5); EOSINOPHILS % 0.8 % (0.0-7.0); HEMATOCRIT 28.7 % (37.0-47.0); HEMOGLOBIN 8.3 g/dl (12.0-16.0); LYMPHOCYTES # 0.7 10^3/ul (0.8-2.9); LYMPHOCYTES % 7.4 % (15.0-51.0); MEAN CORPUSCULAR HEMOGLOBIN 30.5 pg (29.0-33.0); MEAN CORPUSCULAR HGB CONC 28.9 g/dl (32.0-37.0); MEAN CORPUSCULAR VOLUME 105.5 fl (82.0-101.0); MEAN PLATELET VOLUME 10.4 fl (7.4-10.4); MONOCYTE # 0.6 10^3/ul (0.3-0.9); MONOCYTES % 6.9 % (0.0-11.0); NEUTROPHIL # 7.8 10^3/ul (1.6-7.5); NEUTROPHILS % 83.5 % (39.0-77.0); NUCLEATED RED BLOOD CELLS # 0.1 10^3/ul (0.0-0.0); NUCLEATED RED BLOOD CELLS% 0.9 /100WBC (0.0-0.0); PLATELET COUNT 197 10^3/UL (140-415); RED BLOOD COUNT 2.72 10^6/ul (4.20-5.40); RED CELL DISTRIBUTION WIDTH 26.2 % (11.5-14.5); WHITE BLOOD COUNT 9.3 10^3/ul (4.8-10.8)
[2016-10-25 08:21] LABS: ALBUMIN 2.5 g/dl (3.3-4.9); POTASSIUM 4.7 mmol/L (3.5-5.1)
[2016-10-25 08:23] LABS: BILIRUBIN,INDIRECT 0.2 mg/dl (0-1.1); BILIRUBIN,TOTAL 0.2 mg/dl (0.2-1.3); CREATININE 2.72 mg/dl (0.44-1.00)
[2016-10-25 08:24] LABS: ALBUMIN/GLOBULIN RATIO 0.73; TOTAL PROTEIN 5.9 g/dl (6.1-8.1)
[2016-10-25] MEDS: METOPROLOL 25 MG TAB PO SCH ×2 (09:00→21:00)
--- NOTE | 2016-10-25 09:21 | CONS ---
Date/Time of Note Date/Time of Note DATE: 10/25/16 TIME: : Assessment/Plan Assessment/Plan Chief Complaint/Hosp Course 1. Acute Renal Failure due to ATN , she is oliguric . She has not had hemodialysis for several days. I am trying to hold off on dialysis and to see if her kidneys will recover function. Her labs today are acceptable however I am concerned about her fluid balance. Her chest x-ray yesterday showed significant pulmonary congestion. I will order dialysis for today. If the congestion continues then she may need another either dialysis or dry ultrafiltration tomorrow.. 2. ALOC , she is improved 3. liver enzyme elevation due to anoxia , enzymes are decreasing . 4. hypotension , she is now normotensive off pressors. 5. hypocalcemia/hypoalbuminemia , calcium is higher 6. anemia , she has not had any recent GI bleeding . 7. peripheral vascular disease . 8. respiratory failure , off ventilator . 9 dysphagia , she is on tube feeding 10. she is now on 3 anticoagulants . Will need review by cardiology . Problems: Consultation Date/Type/Reason Admit Date/Time Sep 20, 2016 at 19:21 Initial Consult Date 09/23/16 Type of Consultation: renal Referring Provider: [facility] ROBISON [facility], [facility] Interval Summary Free Text/Dictation She is lethargic. She was given Ativan earlier. She seems comfortable. Her chest x-ray yesterday showed considerable congestion. Constitutional: no complaints Exam/Review of Systems Vital Signs Vitals Vital Signs Date Time Temp Pulse Resp B/P Pulse Ox O2 Delivery O2 Flow Rate FiO2 10/25/16 09:03 68 20 100 Nasal Cannula 2.0 10/25/16 07:39 97.8 93/52 Intake and Output 10/24/16 10/24/16 10/25/16 15:00 23:00 07:00 Intake Total 630 ml 520 ml Output Total 50 ml Balance 580 ml 520 ml Exam Constitutional: alert Psych: confusion Respiratory: clear to auscultation, diminished breath sounds Cardiovascular: regular rate and rhythm Gastrointestinal: soft Extremities: edema Results Result Diagram: 10/25/16 0640 10/25/16 0640 Results 24 hrs Laboratory Tests Test 10/24/16 12:00 10/24/16 17:03 10/24/16 21:20 10/25/16 00:43 Bedside Glucose 162 133 140 142 Test 10/25/16 05:14 10/25/16 05:18 10/25/16 06:40 Bedside Glucose 127 Prothrombin Time 24.5 #H Prothrombin Time Ratio 1.9 INR International Normalized Ratio 2.18 White Blood Count 9.3 Red Blood Count 2.72 L Hemoglobin 8.3 L Hematocrit 28.7 L Mean Corpuscular Volume 105.5 H Mean Corpuscular Hemoglobin 30.5 Mean Corpuscular Hemoglobin Concent 28.9 L Red Cell Distribution Width 26.2 H Platelet Count 197 Mean Platelet Volume 10.4 Neutrophils % 83.5 H Lymphocytes % 7.4 L Monocytes % 6.9 Eosinophils % 0.8 Basophils % 0.2 Nucleated Red Blood Cells % 0.9 H Neutrophils # 7.8 H Lymphocytes # 0.7 L Monocytes # 0.6 Eosinophils # 0.1 Basophils # 0.0 Nucleated Red Blood Cells # 0.1 H Sodium Level 135 Potassium Level 4.7 Chloride Level 99 Carbon Dioxide Level 26 Anion Gap 15 Blood Urea Nitrogen 75 H Creatinine 2.72 H Glucose Level 128 Calcium Level 8.0 L Total Bilirubin 0.2 Direct Bilirubin 0.00 Indirect Bilirubin 0.2 Aspartate Amino Transf (AST/SGOT) 94 H Alanine Aminotransferase (ALT/SGPT) 103 H Alkaline Phosphatase 208 H Total Protein 5.9 L Albumin 2.5 L Globulin 3.40 H Albumin/Globulin Ratio 0.73 Medications Medications Current Medications Acetaminophen (Tylenol Liquid) 650 mg Q4H PRN NGT PAIN AND OR ELEVATED TEMP Last administered on 09/27/16 05:14; Admin Dose 650 MG; Start 09/21/16 at 02:00 Eye Lubricant (Artificial Tears Oph) 2 drop QID BOTH EYES Last administered on 10/24/16 21:21; Admin Dose 2 DROP; Start 09/21/16 at 09:00 Atorvastatin Calcium (Lipitor) 80 mg HS NGT Last administered on 10/24/16 21: 11; Admin Dose 80 MG; Start 09/22/16 at 21:00 Pantoprazole (Protonix Iv) 40 mg AM IV Last administered on 10/24/16 09:56; Admin Dose 40 MG; Start 09/26/16 at 09:00 Epoetin Raj (Epogen (Esrd)) 10,000 units TuThSa@17 SC Last administered on 17:30; Admin Dose 10,000 UNITS; Start 09/26/16 at 17:00 IV Flush (NS 10 ml) 10 ml PRN PRN IV IV PROTOCOL; Start 09/26/16 at 17:30 Morphine Sulfate (morphine) 2 mg Q4H PRN IV PAIN Last administered on 12:10; Admin Dose 2 MG; Start 09/28/16 at 16:00 Lactobacillus Acidoph/Bulgaricus (Floranex) 1 tab TID PO Last administered on 21:11; Admin Dose 1 TAB; Start 10/09/16 at 21:00 Miscellaneous Information 1 ea NOTE XX ; Start 10/09/16 at 20:30 Dextrose (D50w Syringe) 25 ml Q15M PRN IV DECREASED GLUCOSE Last administered on 10/14/16 00:31; Admin Dose 25 ML; Start 10/09/16 at 20:30 Glucagon (Glucagen) 1 mg Q15M PRN IM DECREASED GLUCOSE; Start 10/09/16 at 20:30 Glucose (Glutose) 15 gm Q15M PRN BUCCAL DECREASED GLUCOSE; Start 10/09/16 at 20: 30 Metoclopramide HCl (Reglan) 5 mg Q6 IV Last administered on 10/25/16 05:15; Admin Dose 5 MG; Start 10/14/16 at 12:00 Calcium Carbonate (Tums) 500 mg TID NGT Last administered on 10/24/16 21:11; Admin Dose 500 MG; Start 10/15/16 at 21:00 Insulin Glargine (Lantus) 26 unit DAILY@08 SC Last administered on 10/24/16 10 :24; Admin Dose 26 UNIT; Start 10/17/16 at 08:00 Insulin Aspart (Novolog Insulin Pen) NOVOLOG *MODERATE* ALGORI... Q4 SC Last administered on 10/25/16 00:44; Admin Dose 2 UNIT; Start 10/16/16 at 13:00 Lorazepam (Ativan) 0.5 mg TID PRN PO ANXIETY Last administered on 10/24/16 09: 56; Admin Dose 0.5 MG; Start 10/19/16 at 17:30 Metoprolol Tartrate (Lopressor) 25 mg BID PO Last administered on 4/20/17at 09: 57; Admin Dose 25 MG; Start 10/20/16 at 21:00 Lactulose (Enulose) 20 gm BID PRN PO CONSTIPATION Last administered on 12:57; Admin Dose 20 GM; Start 10/23/16 at 10:30 Nortriptyline HCl (Aventyl) 50 mg HS PO Last administered on 10/24/16 21:11; Admin Dose 50 MG; Start 10/23/16 at 21:00 Escitalopram Oxalate (Lexapro) 5 mg DAILY NGT Last administered on 10/24/16 15 :28; Admin Dose 5 MG; Start 10/24/16 at 14:30 Haloperidol (Haldol) 1 mg Q6H PRN IM ANXIETY; Start 10/24/16 at 15:00 DAMIR MARTINEZ MD Oct 25, 2016 09:21
[2016-10-25] MEDS: ARTIFICIAL TEARS 15 ML OPH BOTH EYES SCH ×4 (09:41→21:29)
[2016-10-25] MEDS: LACTOBACILLUS CHEW TAB PO SCH (09:41)
[2016-10-25] MEDS: CALCIUM CARBONATE 500 MG CHEW TAB NGT SCH ×3 (09:41→21:29)
[2016-10-25] MEDS: PANTOPRAZOLE 40 MG INJ IV SCH (09:41)
[2016-10-25] MEDS: ESCITALOPRAM 10 MG TAB NGT SCH (09:45)
[2016-10-25] MEDS: INSULIN GLARGINE [LANtus] 3 ML PEN SC SCH (09:59)
[2016-10-25] MEDS: L ACIDOPHIL/B LACTIS/B LONGUM CAPSULE PO SCH ×2 (13:30→21:29)
[2016-10-25] MEDS: ALBUMIN HUMAN 25% 50 ML IV PRN (14:47)
[2016-10-25] MEDS: NORTRIPTYLINE 25 MG CAP PO SCH (21:29)
[2016-10-25] MEDS: ATORVASTATIN 80 MG TAB NGT SCH (21:29)
[2016-10-26] MEDS: METOCLOPRAMIDE 10 MG INJ IV SCH ×5 (00:21→23:18)
[2016-10-26] MEDS: INSULIN ASPART [NOVOLOG] 3 ML PEN SC SCH ×6 (00:30→21:00)
[2016-10-26] MEDS: LEVALBUTEROL (NEB) 1.25 MG/0.5 ML AMP HHN SCH ×4 (03:04→20:00)
[2016-10-26] MEDS: IPRATROPIUM (NEB) 0.5 MG/2.5 ML AMP HHN SCH ×4 (03:05→20:00)
[2016-10-26] MEDS: ACETYLCYSTEINE 20% 4 ML VIAL NEB SCH ×4 (03:05→20:00)
[2016-10-26 06:23] LABS: ADD SCAN DIFF NO
[2016-10-26 06:25] LABS: ABNORMAL IP MESSAGE 1; BASOPHILS % 0.1 % (0.0-2.0); EOSINOPHILS # 0.1 10^3/ul (0.0-0.5); EOSINOPHILS % 0.8 % (0.0-7.0); HEMATOCRIT 27.4 % (37.0-47.0); HEMOGLOBIN 7.9 g/dl (12.0-16.0); LYMPHOCYTES # 0.8 10^3/ul (0.8-2.9); LYMPHOCYTES % 8.3 % (15.0-51.0); MEAN CORPUSCULAR HEMOGLOBIN 30.3 pg (29.0-33.0); MEAN CORPUSCULAR HGB CONC 28.8 g/dl (32.0-37.0); MEAN PLATELET VOLUME 10.9 fl (7.4-10.4); MONOCYTE # 0.7 10^3/ul (0.3-0.9); NEUTROPHIL # 7.3 10^3/ul (1.6-7.5); NEUTROPHILS % 81.5 % (39.0-77.0); NUCLEATED RED BLOOD CELLS # 0.1 10^3/ul (0.0-0.0); NUCLEATED RED BLOOD CELLS% 0.6 /100WBC (0.0-0.0); PLATELET COUNT 155 10^3/UL (140-415); RED BLOOD COUNT 2.61 10^6/ul (4.20-5.40); RED CELL DISTRIBUTION WIDTH 26.3 % (11.5-14.5)
[2016-10-26 06:43] LABS: ALBUMIN/GLOBULIN RATIO 0.86
[2016-10-26 07:20] LABS: ALBUMIN 2.6 g/dl (3.3-4.9); BILIRUBIN,INDIRECT 0.1 mg/dl (0-1.1); BILIRUBIN,TOTAL 0.1 mg/dl (0.2-1.3); CALCIUM 7.5 mg/dl (8.4-10.2); CREATININE 1.84 mg/dl (0.44-1.00); POTASSIUM 3.7 mmol/L (3.5-5.1); TOTAL PROTEIN 5.6 g/dl (6.1-8.1)
[2016-10-26 07:41] VITALS: BP 95/55; RESP 18
[2016-10-26] MEDS: PANTOPRAZOLE 40 MG INJ IV SCH (08:43)
[2016-10-26] MEDS: L ACIDOPHIL/B LACTIS/B LONGUM CAPSULE PO SCH ×3 (08:43→21:04)
[2016-10-26] MEDS: LORAZEPAM 0.5 MG TAB PO PRN ×2 (08:43→17:52)
[2016-10-26] MEDS: ARTIFICIAL TEARS 15 ML OPH BOTH EYES SCH ×4 (08:43→21:05)
[2016-10-26] MEDS: CALCIUM CARBONATE 500 MG CHEW TAB NGT SCH ×3 (08:43→21:04)
[2016-10-26] MEDS: ESCITALOPRAM 10 MG TAB NGT SCH (08:44)
[2016-10-26] MEDS: INSULIN GLARGINE [LANtus] 3 ML PEN SC SCH (08:55)
[2016-10-26] MEDS: METOPROLOL 25 MG TAB PO SCH ×2 (09:00→21:00)
--- NOTE | 2016-10-26 09:59 | PN ---
Date/Time of Note Date/Time of Note DATE: 10/26/16 TIME: 09:52 Assessment/Plan Lines/Catheters IV [facility] Type (from [facility] Permacath Rivas in Place (from Nrs): Yes Assessment/Plan Chief Complaint/Hosp Course -Acute renal failure: S/P Emergent Maninder catheter placement. S/P Perm cath -Left Axillary vein thrombosis: It seems the has developed DVT likely related to the left PICC line. Recommend removal of the line and to start anticoagulation when possible. will obtain new venous ultrasounds -Bilateral lower extremity atherosclerosis with gangrene: It seems the patient has developed bilateral toe discoloration/gangrene. it may be related to her being on pressors for some time and possible blue toe syndrome. Will likely require CTA of abdomen and pelvis for possible aortoiliac disease as a source. However, considering recent renal failure will await her renal function. Arterial U/S demonstrate triphasic flow and toe discolorations improving -Continue to monitor -Optimize vascular status (BP meds, diet, nutrition, exercise, sugar control, antiplatelets). -Discussed findings, plan and management with the primary service, and we will plan to notify family. -Thank you for allowing us to partake in the care of your patient. Please call with any questions. Problems: Subjective 24 Hr Interval Summary no new vascular events overnight Exam/Review of Systems Vital Signs Vitals Vital Signs Date Time Temp Pulse Resp B/P Pulse Ox O2 Delivery O2 Flow Rate FiO2 10/26/16 08:49 77 16 100 Nasal Cannula 2.0 10/26/16 07:41 97.8 95/55 Intake and Output 10/25/16 10/25/16 10/26/16 15:00 23:00 07:00 Intake Total 950 ml Output Total 2350 ml 100 ml Balance -1400 ml -100 ml Exam Free Text/Dictation GENERAL: awake, nonverbal, NGT intact PULMONARY: Coarse breath sounds bilaterally., Right perm cath intact CARDIOVASCULAR: S1, S2 present. ABDOMEN: Soft, nontender, nondistended. Bowel sounds positive. Large truncal obesity and pannus. LOWER EXTREMITIES: RLE: Palpable femoral pulse, nonpalpable pedal pulses. Motor, sensory intact,. Capillary refill 2-3 seconds.right 1-3rd toes dry gangrene and development of eschar LLE: Palpable femoral pulse, nonpalpable pedal pulses. Motor, sensory intact, Capillary refill 2-3 seconds.right 1-2nd toes dry gangrene and development of eschar Results Result Diagram: 10/26/16 0502 10/26/16 0502 OG RODAS MD Oct 26, 2016 09:59
--- NOTE | 2016-10-26 14:21 | CONS ---
Date/Time of Note Date/Time of Note DATE: 10/26/16 TIME: 14:17 Assessment/Plan Assessment/Plan Chief Complaint/Hosp Course 1. Acute Renal Failure due to ATN. 1000cc UF yesterday, still fluid overloaded. HD planned for tomorrow. 2. ALOC , very lethargic 3. liver enzyme elevation due to anoxia , enzymes are decreasing . 4. hypotension, improved 5. hypocalcemia/hypoalbuminemia , calcium is higher 6. anemia , she has not had any recent GI bleeding . 7. peripheral vascular disease . 8. dysphagia , she is on tube feeding Problems: Consultation Date/Type/Reason Admit Date/Time Sep 20, 2016 at 19:21 Initial Consult Date 10/22/16 Type of Consultation: renal Referring Provider: ZANDRA ROBISON MD, [facility] 24 HR Interval Summary Free Text/Dictation The patient is lethargic, not answering questions Exam/Review of Systems Vital Signs Vitals Vital Signs Date Time Temp Pulse Resp B/P Pulse Ox O2 Delivery O2 Flow Rate FiO2 10/26/16 08:49 77 16 100 Nasal Cannula 2.0 10/26/16 07:41 97.8 95/55 Intake and Output 10/25/16 10/25/16 10/26/16 15:00 23:00 07:00 Intake Total 950 ml Output Total 2350 ml 100 ml Balance -1400 ml -100 ml Exam Head: atraumatic, normocephalic Neck: No jvd Respiratory: clear to auscultation Cardiovascular: regular rate and rhythm Gastrointestinal: soft Extremities: edema (bilateral upper and lower ext edema) Results Result Diagram: 10/26/16 0502 10/26/16 0502 Results 24 hrs Laboratory Tests Test 10/25/16 18:08 10/25/16 20:44 10/26/16 00:26 10/26/16 05:02 Bedside Glucose 116 131 143 White Blood Count 9.0 Red Blood Count 2.61 L Hemoglobin 7.9 L Hematocrit 27.4 L Mean Corpuscular Volume 105.0 H Mean Corpuscular Hemoglobin 30.3 Mean Corpuscular Hemoglobin Concent 28.8 L Red Cell Distribution Width 26.3 H Platelet Count 155 # Mean Platelet Volume 10.9 H Neutrophils % 81.5 H Lymphocytes % 8.3 L Monocytes % 8.0 Eosinophils % 0.8 Basophils % 0.1 Nucleated Red Blood Cells % 0.6 H Neutrophils # 7.3 Lymphocytes # 0.8 Monocytes # 0.7 Eosinophils # 0.1 Basophils # 0.0 Nucleated Red Blood Cells # 0.1 H Sodium Level 134 L Potassium Level 3.7 Chloride Level 101 Carbon Dioxide Level 28 Anion Gap 9 # Blood Urea Nitrogen 47 #H Creatinine 1.84 H Glucose Level 144 Calcium Level 7.5 L Total Bilirubin 0.1 L Direct Bilirubin 0.00 Indirect Bilirubin 0.1 Aspartate Amino Transf (AST/SGOT) 81 H Alanine Aminotransferase (ALT/SGPT) 91 H Alkaline Phosphatase 218 H Total Protein 5.6 L Albumin 2.6 L Globulin 3.00 Albumin/Globulin Ratio 0.86 Test 10/26/16 05:05 10/26/16 08:46 10/26/16 13:58 Bedside Glucose 155 160 138 Medications Medications Current Medications Acetaminophen (Tylenol Liquid) 650 mg Q4H PRN NGT PAIN AND OR ELEVATED TEMP Last administered on 09/27/16 05:14; Admin Dose 650 MG; Start 09/21/16 at 02:00 Eye Lubricant (Artificial Tears Oph) 2 drop QID BOTH EYES Last administered on 10/26/16 14:00; Admin Dose 2 DROP; Start 09/21/16 at 09:00 Atorvastatin Calcium (Lipitor) 80 mg HS NGT Last administered on 10/25/16 21: 29; Admin Dose 80 MG; Start 09/22/16 at 21:00 Pantoprazole (Protonix Iv) 40 mg AM IV Last administered on 10/26/16 08:43; Admin Dose 40 MG; Start 09/26/16 at 09:00 Epoetin Raj (Epogen (Esrd)) 10,000 units TuThSa@17 SC Last administered on 17:30; Admin Dose 10,000 UNITS; Start 09/26/16 at 17:00 IV Flush (NS 10 ml) 10 ml PRN PRN IV IV PROTOCOL; Start 09/26/16 at 17:30 Morphine Sulfate (morphine) 2 mg Q4H PRN IV PAIN Last administered on 12:10; Admin Dose 2 MG; Start 09/28/16 at 16:00 Miscellaneous Information 1 ea NOTE XX ; Start 10/09/16 at 20:30 Dextrose (D50w Syringe) 25 ml Q15M PRN IV DECREASED GLUCOSE Last administered on 10/14/16 00:31; Admin Dose 25 ML; Start 10/09/16 at 20:30 Glucagon (Glucagen) 1 mg Q15M PRN IM DECREASED GLUCOSE; Start 10/09/16 at 20:30 Glucose (Glutose) 15 gm Q15M PRN BUCCAL DECREASED GLUCOSE; Start 10/09/16 at 20: 30 Metoclopramide HCl (Reglan) 5 mg Q6 IV Last administered on 10/26/16 12:30; Admin Dose 5 MG; Start 10/14/16 at 12:00 Calcium Carbonate (Tums) 500 mg TID NGT Last administered on 10/26/16 14:00; Admin Dose 500 MG; Start 10/15/16 at 21:00 Insulin Glargine (Lantus) 26 unit DAILY@08 SC Last administered on 10/26/16 08 :55; Admin Dose 26 UNIT; Start 10/17/16 at 08:00 Insulin Aspart (Novolog Insulin Pen) NOVOLOG *MODERATE* ALGORI... Q4 SC Last administered on 10/26/16 08:55; Admin Dose 2 UNIT; Start 10/16/16 at 13:00 Lorazepam (Ativan) 0.5 mg TID PRN PO ANXIETY Last administered on 10/26/16 08: 43; Admin Dose 0.5 MG; Start 10/19/16 at 17:30 Metoprolol Tartrate (Lopressor) 25 mg BID PO Last administered on 10/24/16 09: 57; Admin Dose 25 MG; Start 10/20/16 at 21:00 Lactulose (Enulose) 20 gm BID PRN PO CONSTIPATION Last administered on 12:57; Admin Dose 20 GM; Start 10/23/16 at 10:30 Nortriptyline HCl (Aventyl) 50 mg HS PO Last administered on 10/25/16 21:29; Admin Dose 50 MG; Start 10/23/16 at 21:00 Escitalopram Oxalate (Lexapro) 5 mg DAILY NGT Last administered on 10/26/16 08 :44; Admin Dose 5 MG; Start 10/24/16 at 14:30 Haloperidol (Haldol) 1 mg Q6H PRN IM ANXIETY; Start 10/24/16 at 15:00 Lactobacillus Acidophilus (Florajen3 Capsule) 1 each TID PO Last administered on 10/26/16t 14:00; Admin Dose 1 EACH; Start 10/25/16 at 13:30 SHAW LY MD Oct 26, 2016 14:21
[2016-10-26] MEDS: EPOETIN 10000 UNITS/1 ML INJ (ESRD) SC SCH (17:54)
[2016-10-26 20:52] VITALS: BP 101/54; RESP 20
[2016-10-26] MEDS: NORTRIPTYLINE 25 MG CAP PO SCH (21:04)
[2016-10-26] MEDS: ATORVASTATIN 80 MG TAB NGT SCH (21:04)
[2016-10-27] VITALS (14 sets, daily range): BP systolic 77–107; BP diastolic 46–60; PULSE 77–94; RESP 18
[2016-10-27] MEDS: INSULIN ASPART [NOVOLOG] 3 ML PEN SC SCH ×6 (00:48→21:00)
[2016-10-27] MEDS: LEVALBUTEROL (NEB) 1.25 MG/0.5 ML AMP HHN SCH ×4 (02:07→20:58)
[2016-10-27] MEDS: ACETYLCYSTEINE 20% 4 ML VIAL NEB SCH ×4 (02:07→20:58)
[2016-10-27] MEDS: IPRATROPIUM (NEB) 0.5 MG/2.5 ML AMP HHN SCH ×4 (02:07→20:58)
[2016-10-27] MEDS: METOCLOPRAMIDE 10 MG INJ IV SCH ×3 (05:27→17:40)
[2016-10-27 05:47] LABS: ADD SCAN DIFF NO
[2016-10-27 06:00] LABS: ABNORMAL IP MESSAGE 1; BASOPHILS % 0.1 % (0.0-2.0); EOSINOPHILS # 0.1 10^3/ul (0.0-0.5); EOSINOPHILS % 0.7 % (0.0-7.0); HEMATOCRIT 29.6 % (37.0-47.0); HEMOGLOBIN 8.3 g/dl (12.0-16.0); LYMPHOCYTES % 10.3 % (15.0-51.0); MEAN CORPUSCULAR HEMOGLOBIN 29.3 pg (29.0-33.0); MEAN CORPUSCULAR VOLUME 104.6 fl (82.0-101.0); MEAN PLATELET VOLUME 10.9 fl (7.4-10.4); MONOCYTE # 0.8 10^3/ul (0.3-0.9); NEUTROPHIL # 7.5 10^3/ul (1.6-7.5); NEUTROPHILS % 79.1 % (39.0-77.0); NUCLEATED RED BLOOD CELLS # 0.1 10^3/ul (0.0-0.0); NUCLEATED RED BLOOD CELLS% 0.6 /100WBC (0.0-0.0); PLATELET COUNT 177 10^3/UL (140-415); RED BLOOD COUNT 2.83 10^6/ul (4.20-5.40); RED CELL DISTRIBUTION WIDTH 25.7 % (11.5-14.5); WHITE BLOOD COUNT 9.5 10^3/ul (4.8-10.8)
[2016-10-27 06:07] LABS: ALBUMIN 2.5 g/dl (3.3-4.9); ALBUMIN/GLOBULIN RATIO 0.8; BILIRUBIN,INDIRECT 0.1 mg/dl (0-1.1); BILIRUBIN,TOTAL 0.1 mg/dl (0.2-1.3); CALCIUM 7.8 mg/dl (8.4-10.2); CREATININE 2.22 mg/dl (0.44-1.00); POTASSIUM 4.3 mmol/L (3.5-5.1); TOTAL PROTEIN 5.6 g/dl (6.1-8.1)
--- NOTE | 2016-10-27 06:42 | PN ---
DATE: 10/26/2016 SUBJECTIVE: The patient is asleep. She has a nasogastric tube in place. HEART: Normal sinus rhythm. CHEST: Clear to A and P. ABDOMEN: Liver, kidneys, spleen are not palpable. Bowel sounds are normal. EXTREMITIES: The patient has 1+ pitting edema in the pretibial areas and dorsal pedal areas bilater ally. She has an ulcer on her left heel and gangrene of the right great toe. The patient is asleep and does not appear to be arousable at this time. VITAL SIGNS: Blood pressure 101/54. Patient is afebrile, pulse is 82, respiratory rate is 20. Int frank and output 950/750. LABORATORY DATA: White blood cell count 9000, hemoglobin 7.9, hematocrit 27.4%, platelet count is n ormal at 155. INR 2.18. Blood sugar 160. Electrolytes: Sodium 134, potassium 3.7, chloride 101, carbon dioxide 28, BUN 47, creatinine 1.84, calcium 7.5 uncorrected, AST 81, ALT 91, alkaline phosph atase 218, total protein 5.6, albumin 2.6, globulin 3.0. Chest x-ray reveals likely increased layer ing effusion on the right as well as mildly increased congestive changes, increased prominence of pa tchy opacities in the right lung, may be due to atelectasis or worsening infiltrates. Stable small left pleural effusion and retrocardiac opacity due to atelectasis, infiltrate and/or effusion. To r epeat her hemoglobin and hematocrit, the patient may need a blood transfusion because of extremely l ow hemoglobin and hematocrit. Dictated By: LEOBARDO KENYON/JERROD Conf#: [id number] DID#: [id number]
[2016-10-27] MEDS: ESCITALOPRAM 10 MG TAB NGT SCH (08:27)
[2016-10-27] MEDS: PANTOPRAZOLE 40 MG INJ IV SCH (08:27)
[2016-10-27] MEDS: ARTIFICIAL TEARS 15 ML OPH BOTH EYES SCH ×4 (08:28→21:32)
[2016-10-27] MEDS: CALCIUM CARBONATE 500 MG CHEW TAB NGT SCH ×3 (08:28→21:31)
[2016-10-27] MEDS: L ACIDOPHIL/B LACTIS/B LONGUM CAPSULE PO SCH ×3 (08:30→21:00)
[2016-10-27] MEDS: INSULIN GLARGINE [LANtus] 3 ML PEN SC SCH (08:35)
[2016-10-27] MEDS: METOPROLOL 25 MG TAB PO SCH ×2 (09:00→21:00)
--- NOTE | 2016-10-27 09:01 | RADRPT ---
PROCEDURE: Bilateral upper extremity venous ultrasound CLINICAL INDICATION: Bilateral upper extremity pain and swelling. Deep venous thrombosis. TECHNIQUE: Pereira scale, color doppler, spectral doppler ultrasound imaging of the venous system of the bilateral upper extremities. Augmentation maneuvers were utilized. COMPARISON: No prior studies are available for comparison. FINDINGS: RIGHT: Internal jugular vein: Patent. Subclavian vein: Patent. Axillary vein: Patent. Brachial vein: Patent. Basilic vein: Patent. Cephalic vein: Patent. Radial vein: Patent. Ulnar vein: Not visualized LEFT: Internal jugular vein: Patent. Subclavian vein: Patent. Axillary vein: Patent. Brachial vein: Patent. Basilic vein: Patent. Cephalic vein: Patent. Radial vein: Patent. Ulnar vein: Patent. Left upper extremity PICC line is noted. Subcutaneous edema is present bilaterally. IMPRESSION: No evidence of a deep vein thrombosis involving the bilateral upper extremities. RPTAT: AADD .Yovanny Pandya MD, MD Date Time Electronically viewed and signed by .Yovanny Pandya MD, on 10/27/2016 09:00 .B/
--- NOTE | 2016-10-27 09:02 | RADRPT ---
PROCEDURE: Ultrasound of the bilateral lower extremity venous system. CLINICAL INDICATION: Bilateral leg pain and swelling, deep venous thrombosis TECHNIQUE: Pereira scale with and without compression, color doppler, spectral doppler of the venous system of the bilateral lower extremities was performed. Venous augmentation maneuvers were utilized . COMPARISON: No prior studies are available for comparison. FINDINGS: RIGHT: Common femoral vein: Patent. Femoral vein: Mid segment is poorly visualized but otherwise patent. Popliteal vein: Patent. Calf veins: Patent. No soft tissue abnormalities are identified. LEFT: Common femoral vein: Patent. Femoral vein: Patent. Popliteal vein: Patent. Calf veins: Patent. No soft tissue abnormalities are identified. IMPRESSION: No evidence of a deep vein thrombosis within the bilateral lower extremities. RPTAT: AADD .Yovanny Pandya MD, Date Time Electronically viewed and signed by .Yovanny Pandya MD, on 10/27/2016 09:02 .B/
[2016-10-27] MEDS: ALBUMIN HUMAN 25% 100 ML IV PRN (10:59)
[2016-10-27] MEDS: LORAZEPAM 0.5 MG TAB PO PRN (12:50)
[2016-10-27] MEDS ORDERED: ALTEPLASE (CATHFLO) 2 MG INJ CATHETER PRN (13:00)
--- NOTE | 2016-10-27 14:54 | CONS ---
Date/Time of Note Date/Time of Note DATE: 10/27/16 TIME: 14:51 Assessment/Plan Assessment/Plan Chief Complaint/Hosp Course 1. Acute Renal Failure due to ATN. Poor UOP, fluid overload, HD planned for today 2. ALOC , a little better today 3. liver enzyme elevation due to anoxia , enzymes are decreasing . 4. hypotension, improved 5. hypocalcemia/hypoalbuminemia , calcium is higher 6. anemia , she has not had any recent GI bleeding . 7. peripheral vascular disease . 8. dysphagia , she is on tube feeding Problems: Consultation Date/Type/Reason Admit Date/Time Sep 20, 2016 at 19:21 Initial Consult Date 10/22/16 Type of Consultation: renal Referring Provider: ZANDRA ROBISON MD, [facility] 24 HR Interval Summary Free Text/Dictation More alert today, denies SOB Exam/Review of Systems Vital Signs Vitals Vital Signs Date Time Temp Pulse Resp B/P Pulse Ox O2 Delivery O2 Flow Rate FiO2 10/27/16 12:41 83 16 10/27/16 08:37 99 Nasal Cannula 2.0 10/27/16 07:46 98.6 94/50 Intake and Output 10/26/16 10/26/16 10/27/16 15:00 23:00 07:00 Intake Total 740 ml 0 ml Output Total 35 ml Balance 740 ml -35 ml Exam Head: atraumatic, normocephalic Neck: No jvd Respiratory: clear to auscultation Gastrointestinal: non-tender, soft Extremities: edema Results Result Diagram: 10/27/16 0510 10/27/16 0510 Results 24 hrs Laboratory Tests Test 10/26/16 17:45 10/26/16 20:56 10/27/16 00:45 10/27/16 05:10 Bedside Glucose 133 127 124 White Blood Count 9.5 Red Blood Count 2.83 L Hemoglobin 8.3 L Hematocrit 29.6 L Mean Corpuscular Volume 104.6 H Mean Corpuscular Hemoglobin 29.3 Mean Corpuscular Hemoglobin Concent 28.0 L Red Cell Distribution Width 25.7 H Platelet Count 177 Mean Platelet Volume 10.9 H Neutrophils % 79.1 H Lymphocytes % 10.3 L Monocytes % 8.0 Eosinophils % 0.7 Basophils % 0.1 Nucleated Red Blood Cells % 0.6 H Neutrophils # 7.5 Lymphocytes # 1.0 Monocytes # 0.8 Eosinophils # 0.1 Basophils # 0.0 Nucleated Red Blood Cells # 0.1 H Sodium Level 131 L Potassium Level 4.3 Chloride Level 99 Carbon Dioxide Level 28 Anion Gap 8 Blood Urea Nitrogen 62 H Creatinine 2.22 H Glucose Level 128 Calcium Level 7.8 L Total Bilirubin 0.1 L Direct Bilirubin 0.00 Indirect Bilirubin 0.1 Aspartate Amino Transf (AST/SGOT) 90 H Alanine Aminotransferase (ALT/SGPT) 90 H Alkaline Phosphatase 255 H Total Protein 5.6 L Albumin 2.5 L Globulin 3.10 Albumin/Globulin Ratio 0.80 Test 10/27/16 05:26 10/27/16 08:27 10/27/16 12:44 Bedside Glucose 137 151 147 Medications Medications Current Medications Acetaminophen (Tylenol Liquid) 650 mg Q4H PRN NGT PAIN AND OR ELEVATED TEMP Last administered on 09/27/16 05:14; Admin Dose 650 MG; Start 09/21/16 at 02:00 Eye Lubricant (Artificial Tears Oph) 2 drop QID BOTH EYES Last administered on 10/27/16 12:52; Admin Dose 2 DROP; Start 09/21/16 at 09:00 Atorvastatin Calcium (Lipitor) 80 mg HS NGT Last administered on 10/26/16 21: 04; Admin Dose 80 MG; Start 09/22/16 at 21:00 Pantoprazole (Protonix Iv) 40 mg AM IV Last administered on 10/27/16 08:27; Admin Dose 40 MG; Start 09/26/16 at 09:00 Epoetin Raj (Epogen (Esrd)) 10,000 units TuTa@17 SC Last administered on 17:54; Admin Dose 10,000 UNITS; Start 09/26/16 at 17:00 IV Flush (NS 10 ml) 10 ml PRN PRN IV IV PROTOCOL; Start 09/26/16 at 17:30 Morphine Sulfate (morphine) 2 mg Q4H PRN IV PAIN Last administered on 12:10; Admin Dose 2 MG; Start 09/28/16 at 16:00 Miscellaneous Information 1 ea NOTE XX ; Start 10/09/16 at 20:30 Dextrose (D50w Syringe) 25 ml Q15M PRN IV DECREASED GLUCOSE Last administered on 10/14/16 00:31; Admin Dose 25 ML; Start 10/09/16 at 20:30 Glucagon (Glucagen) 1 mg Q15M PRN IM DECREASED GLUCOSE; Start 10/09/16 at 20:30 Glucose (Glutose) 15 gm Q15M PRN BUCCAL DECREASED GLUCOSE; Start 10/09/16 at 20: 30 Metoclopramide HCl (Reglan) 5 mg Q6 IV Last administered on 10/27/16 12:50; Admin Dose 5 MG; Start 10/14/16 at 12:00 Calcium Carbonate (Tums) 500 mg TID NGT Last administered on 10/27/16 12:50; Admin Dose 500 MG; Start 10/15/16 at 21:00 Insulin Glargine (Lantus) 26 unit DAILY@08 SC Last administered on 10/27/16 08 :35; Admin Dose 26 UNIT; Start 10/17/16 at 08:00 Insulin Aspart (Novolog Insulin Pen) NOVOLOG *MODERATE* ALGORI... Q4 SC Last administered on 10/27/16 12:52; Admin Dose 2 UNIT; Start 10/16/16 at 13:00 Lorazepam (Ativan) 0.5 mg TID PRN PO ANXIETY Last administered on 10/27/16 12: 50; Admin Dose 0.5 MG; Start 10/19/16 at 17:30 Metoprolol Tartrate (Lopressor) 25 mg BID PO Last administered on 10/24/16 09: 57; Admin Dose 25 MG; Start 10/20/16 at 21:00 Lactulose (Enulose) 20 gm BID PRN PO CONSTIPATION Last administered on 12:57; Admin Dose 20 GM; Start 10/23/16 at 10:30 Nortriptyline HCl (Aventyl) 50 mg HS PO Last administered on 10/26/16 21:04; Admin Dose 50 MG; Start 10/23/16 at 21:00 Escitalopram Oxalate (Lexapro) 5 mg DAILY NGT Last administered on 10/27/16 08 :27; Admin Dose 5 MG; Start 10/24/16 at 14:30 Haloperidol (Haldol) 1 mg Q6H PRN IM ANXIETY; Start 10/24/16 at 15:00 Lactobacillus Acidophilus (Florajen3 Capsule) 1 each TID PO Last administered on 10/27/16t 12:50; Admin Dose 1 EACH; Start 10/25/16 at 13:30 SHAW LY MD Oct 27, 2016 14:53
[2016-10-27] MEDS ORDERED: CALCIUM GLUCONATE 10% 2 GM in SOD CHLORIDE 0.9% 100 ML IVPB ONE (19:00)
--- NOTE | 2016-10-27 19:09 | PN ---
Date/Time of Note Date/Time of Note DATE: 10/25/16 TIME: 14:58 Assessment/Plan VTE Prophylaxis VTE Prophylaxis Intervention: other (coum) Lines/Catheters IV Catheter Type (from Nrsg): Permacath Central line still needed: No Urinary Cath still in place: Yes Reason Cath still needed: terminal illness/intractable pain Assessment/Plan Assessment/Plan 1/ cad/ pad/ low bp 2/ arf--dialysis/ edema/ anemia 3/ dm 4/ musc weak--mostly bed bound/ dysphagia--ngt feed 5/ depression anxiety--on nortrypt/ haldol 6/ low abl, calc ---per cards ---per pulm, aggressive chest RT ---per renal ---cont coum to bring pt inr 2.0--2.5 ---considering diuretics when not dialyzed ---cont musc strengthening OT/PT exercises ---replace supplements Subjective 24 Hr Interval Summary Free Text/Dictation tired, discouraged SHAMA LOPEZ MD Oct 27, 2016 19:09
[2016-10-27] MEDS: ATORVASTATIN 80 MG TAB NGT SCH (21:31)
[2016-10-27] MEDS: FERROUS SULFATE 60 MG/ML 5ML CUP NGT SCH (21:31)
[2016-10-27] MEDS: NORTRIPTYLINE 25 MG CAP PO SCH (21:32)
--- NOTE | 2016-10-27 23:26 | PN ---
DATE: 10/27/2016 OBJECTIVE: GENERAL: The patient awake, alert, follows simple commands. HEENT: The patient has a nasogastric tube in place. HEART: Normal sinus rhythm. CHEST: Clear to A and P. ABDOMEN: Liver, kidneys, spleen are not palpable. Bowel sounds are normal. EXTREMITIES: No ankle edema. The patient has ulcer of the left heel and partial gangrene of her ri ght great toe. VITAL SIGNS: She is afebrile, blood pressure is 107/53, pulse is 94, respiratory rate is 20, pulse ox is 96%. Intake and output 740/35. LABORATORY DATA: White blood cell count 9500, hemoglobin 8.3, hematocrit 29.6, platelet count is no rmal at 177,000. Blood sugar 145. Electrolytes: Sodium 131, potassium 4.3, chloride 99, carbon di oxide 28, BUN 62, creatinine 2.22, glucose 128, calcium 7.8 uncorrected. AST 90, ALT 90, alkaline p hosphatase 255. Total protein 5.6, albumin 2.5, globulin 3.1. Amylase is normal. Sonogram of the legs venous reveals no evidence of deep vein thrombosis. Dictated By: LEOBARDO HOUSE MD WR/NTS Conf#: [id number] DID#: [id number] CC: TOVA WRIGHT MD;*End*
[2016-10-28] MEDS: METOCLOPRAMIDE 10 MG INJ IV SCH ×4 (00:02→17:36)
[2016-10-28] MEDS: INSULIN ASPART [NOVOLOG] 3 ML PEN SC SCH ×6 (01:00→20:42)
[2016-10-28] MEDS: IPRATROPIUM (NEB) 0.5 MG/2.5 ML AMP HHN SCH ×4 (01:08→19:51)
[2016-10-28] MEDS: LEVALBUTEROL (NEB) 1.25 MG/0.5 ML AMP HHN SCH ×4 (01:08→19:51)
[2016-10-28] MEDS: ACETYLCYSTEINE 20% 4 ML VIAL NEB SCH ×4 (01:08→19:51)
[2016-10-28 06:50] LABS: ADD SCAN DIFF NO
[2016-10-28 07:11] LABS: ABNORMAL IP MESSAGE 1; BASOPHILS % 0.2 % (0.0-2.0); EOSINOPHILS # 0.1 10^3/ul (0.0-0.5); EOSINOPHILS % 0.5 % (0.0-7.0); HEMATOCRIT 28.3 % (37.0-47.0); HEMOGLOBIN 8.1 g/dl (12.0-16.0); LYMPHOCYTES # 0.9 10^3/ul (0.8-2.9); LYMPHOCYTES % 9.3 % (15.0-51.0); MEAN CORPUSCULAR HEMOGLOBIN 30.1 pg (29.0-33.0); MEAN CORPUSCULAR HGB CONC 28.6 g/dl (32.0-37.0); MEAN CORPUSCULAR VOLUME 105.2 fl (82.0-101.0); MEAN PLATELET VOLUME 11.2 fl (7.4-10.4); MONOCYTE # 0.6 10^3/ul (0.3-0.9); MONOCYTES % 6.2 % (0.0-11.0); NEUTROPHIL # 7.8 10^3/ul (1.6-7.5); NEUTROPHILS % 81.6 % (39.0-77.0); NUCLEATED RED BLOOD CELLS% 0.3 /100WBC (0.0-0.0); PLATELET COUNT 184 10^3/UL (140-415); RED BLOOD COUNT 2.69 10^6/ul (4.20-5.40); RED CELL DISTRIBUTION WIDTH 25.4 % (11.5-14.5); WHITE BLOOD COUNT 9.6 10^3/ul (4.8-10.8)
[2016-10-28 07:16] LABS: ALBUMIN 2.5 g/dl (3.3-4.9)
[2016-10-28 07:17] LABS: INR 1.77; PROTIME 20.8 Sec (12.2-14.2); PT RATIO 1.6
[2016-10-28 07:19] LABS: ALBUMIN/GLOBULIN RATIO 0.8; BILIRUBIN,INDIRECT 0.3 mg/dl (0-1.1); BILIRUBIN,TOTAL 0.3 mg/dl (0.2-1.3); CREATININE 2.02 mg/dl (0.44-1.00); TOTAL PROTEIN 5.6 g/dl (6.1-8.1)
[2016-10-28 07:20] LABS: CALCIUM 8.4 mg/dl (8.4-10.2)
[2016-10-28 07:29] VITALS: BP 98/55; RESP 18
[2016-10-28] MEDS: L ACIDOPHIL/B LACTIS/B LONGUM CAPSULE PO SCH ×3 (08:52→20:40)
[2016-10-28] MEDS: CALCIUM CARBONATE 500 MG CHEW TAB NGT SCH ×3 (08:52→20:35)
[2016-10-28] MEDS: FERROUS SULFATE 60 MG/ML 5ML CUP NGT SCH ×3 (08:52→20:35)
[2016-10-28] MEDS: ARTIFICIAL TEARS 15 ML OPH BOTH EYES SCH ×4 (08:53→20:34)
[2016-10-28] MEDS: METOPROLOL 25 MG TAB PO SCH ×2 (08:53→20:40)
[2016-10-28] MEDS: PANTOPRAZOLE 40 MG INJ IV SCH (08:53)
[2016-10-28] MEDS: INSULIN GLARGINE [LANtus] 3 ML PEN SC SCH (08:58)
--- NOTE | 2016-10-28 14:25 | CONS ---
Date/Time of Note Date/Time of Note DATE: 10/28/16 TIME: 14:17 Assessment/Plan Assessment/Plan Chief Complaint/Hosp Course 1. Acute Renal Failure due to ATN , she is oliguric . She had hemodialysis yesterday.. The next dialysis will be determined according to labs and urine output. 2. ALOC , she is improved 3. liver enzyme elevation due to anoxia , enzymes are decreasing . 4. hypotension , she is now normotensive off pressors. 5. hypocalcemia/hypoalbuminemia , calcium is higher 6. anemia , she has not had any recent GI bleeding . 7. peripheral vascular disease . 8. respiratory failure , off ventilator . 9 dysphagia , she is on tube feeding 10. she is now on 3 anticoagulants . Will need review by cardiology . Problems: Consultation Date/Type/Reason Admit Date/Time Sep 20, 2016 at 19:21 Initial Consult Date 09/23/16 Type of Consultation: renal Referring Provider: ZANDRA ROBISON MD, [facility] 24 HR Interval Summary Free Text/Dictation She is awake. She is lethargic but does answer questions appropriately. She is very weak she had a hemodialysis treatment yesterday. Constitutional: no complaints Exam/Review of Systems Vital Signs Vitals Vital Signs Date Time Temp Pulse Resp B/P Pulse Ox O2 Delivery O2 Flow Rate FiO2 10/28/16 08:45 Nasal Cannula 2.0 10/28/16 07:50 92 18 97 10/28/16 07:29 98.9 98/55 Intake and Output 10/27/16 10/27/16 10/28/16 15:00 23:00 07:00 Intake Total 700 ml 710 ml 910 ml Output Total 1700 ml 75 ml Balance -1000 ml 710 ml 835 ml Exam Constitutional: alert, frail Psych: no complaints Respiratory: clear to auscultation, diminished breath sounds Cardiovascular: regular rate and rhythm Gastrointestinal: soft Extremities: edema Results Result Diagram: 10/28/16 0520 10/28/16 0520 Results 24 hrs Laboratory Tests Test 10/27/16 17:39 10/27/16 21:39 10/28/16 01:53 10/28/16 05:20 Bedside Glucose 115 145 174 White Blood Count 9.6 Red Blood Count 2.69 L Hemoglobin 8.1 L Hematocrit 28.3 L Mean Corpuscular Volume 105.2 H Mean Corpuscular Hemoglobin 30.1 Mean Corpuscular Hemoglobin Concent 28.6 L Red Cell Distribution Width 25.4 H Platelet Count 184 Mean Platelet Volume 11.2 H Neutrophils % 81.6 H Lymphocytes % 9.3 L Monocytes % 6.2 Eosinophils % 0.5 Basophils % 0.2 Nucleated Red Blood Cells % 0.3 H Neutrophils # 7.8 H Lymphocytes # 0.9 Monocytes # 0.6 Eosinophils # 0.1 Basophils # 0.0 Nucleated Red Blood Cells # 0.0 Prothrombin Time 20.8 H Prothrombin Time Ratio 1.6 INR International Normalized Ratio 1.77 Sodium Level 133 L Potassium Level 4.0 Chloride Level 95 L Carbon Dioxide Level 29 Anion Gap 13 Blood Urea Nitrogen 51 H Creatinine 2.02 H Glucose Level 178 Calcium Level 8.4 Total Bilirubin 0.3 Direct Bilirubin 0.00 Indirect Bilirubin 0.3 Aspartate Amino Transf (AST/SGOT) 69 H Alanine Aminotransferase (ALT/SGPT) 79 H Alkaline Phosphatase 256 H Total Protein 5.6 L Albumin 2.5 L Globulin 3.10 Albumin/Globulin Ratio 0.80 Test 10/28/16 05:49 10/28/16 08:55 10/28/16 13:40 Bedside Glucose 186 185 155 Medications Medications Current Medications Acetaminophen (Tylenol Liquid) 650 mg Q4H PRN NGT PAIN AND OR ELEVATED TEMP Last administered on 09/27/16 05:14; Admin Dose 650 MG; Start 09/21/16 at 02:00 Eye Lubricant (Artificial Tears Oph) 2 drop QID BOTH EYES Last administered on 10/28/16 13:42; Admin Dose 2 DROP; Start 09/21/16 at 09:00 Atorvastatin Calcium (Lipitor) 80 mg HS NGT Last administered on 10/27/16 21: 31; Admin Dose 80 MG; Start 09/22/16 at 21:00 Pantoprazole (Protonix Iv) 40 mg AM IV Last administered on 10/28/16 08:53; Admin Dose 40 MG; Start 09/26/16 at 09:00 Epoetin Raj (Epogen (Esrd)) 10,000 units TuThSa@17 SC Last administered on 17:54; Admin Dose 10,000 UNITS; Start 09/26/16 at 17:00 IV Flush (NS 10 ml) 10 ml PRN PRN IV IV PROTOCOL; Start 09/26/16 at 17:30 Morphine Sulfate (morphine) 2 mg Q4H PRN IV PAIN Last administered on 12:10; Admin Dose 2 MG; Start 09/28/16 at 16:00 Miscellaneous Information 1 ea NOTE XX ; Start 10/09/16 at 20:30 Dextrose (D50w Syringe) 25 ml Q15M PRN IV DECREASED GLUCOSE Last administered on 10/14/16 00:31; Admin Dose 25 ML; Start 10/09/16 at 20:30 Glucagon (Glucagen) 1 mg Q15M PRN IM DECREASED GLUCOSE; Start 10/09/16 at 20:30 Glucose (Glutose) 15 gm Q15M PRN BUCCAL DECREASED GLUCOSE; Start 10/09/16 at 20: 30 Metoclopramide HCl (Reglan) 5 mg Q6 IV Last administered on 10/28/16 13:41; Admin Dose 5 MG; Start 10/14/16 at 12:00 Calcium Carbonate (Tums) 500 mg TID NGT Last administered on 10/28/16 13:41; Admin Dose 500 MG; Start 10/15/16 at 21:00 Insulin Glargine (Lantus) 26 unit DAILY@08 SC Last administered on 10/28/16 08 :58; Admin Dose 26 UNIT; Start 10/17/16 at 08:00 Insulin Aspart (Novolog Insulin Pen) NOVOLOG *MODERATE* ALGORI... Q4 SC Last administered on 10/28/16 13:52; Admin Dose 2 UNIT; Start 10/16/16 at 13:00 Metoprolol Tartrate (Lopressor) 25 mg BID PO Last administered on 10/24/16 09: 57; Admin Dose 25 MG; Start 10/20/16 at 21:00 Lactulose (Enulose) 20 gm BID PRN PO CONSTIPATION Last administered on 12:57; Admin Dose 20 GM; Start 10/23/16 at 10:30 Nortriptyline HCl (Aventyl) 50 mg HS PO Last administered on 10/27/16 21:32; Admin Dose 50 MG; Start 10/23/16 at 21:00 Haloperidol (Haldol) 1 mg Q6H PRN IM ANXIETY; Start 10/24/16 at 15:00 Lactobacillus Acidophilus (Florajen3 Capsule) 1 each TID PO Last administered on 10/28/16 13:41; Admin Dose 1 EACH; Start 10/25/16 at 13:30 Warfarin Sodium (Coumadin) 4 mg DAILY@17 NGT ; Start 10/28/16 at 17:00 Ferrous Sulfate (Feosol Liquid Cup) 300 mg TID NGT Last administered on 13:41; Admin Dose 300 MG; Start 10/27/16 at 21:00 DAMIR MARTINEZ MD Oct 28, 2016 14:25
[2016-10-28] MEDS ORDERED: LORAZEPAM 2 MG INJ IV ONE ×2 (15:41→16:00)
--- NOTE | 2016-10-28 15:58 | PN ---
Date/Time of Note Date/Time of Note DATE: 10/28/16 TIME: 15:50 Assessment/Plan VTE Prophylaxis VTE Prophylaxis Intervention: other (coumadin) Lines/Catheters IV Catheter Type (from Nrsg): Permacath Central line still needed: No Urinary Cath still in place: Yes Reason Cath still needed: terminal illness/intractable pain Assessment/Plan Assessment/Plan 1. cad/ pad/ anticoagulation 2. rld with effusion/ dyspnea 3. arf/ anemia/ edema 4. dm 5. musc weak/ dysphagia/ obesity 6. situational anxiety depression ---per cards ---per pulm, cont aggressive chest RT ---per renal ---restart lexapro 10mg qd with ativan 0.5mg im q6hrs prn ---replace alb ---cont 4mg coum qpm (spoke with family) Subjective 24 Hr Interval Summary Free Text/Dictation anxious, worried, "not good" Exam/Review of Systems Vital Signs Vitals Vital Signs Date Time Temp Pulse Resp B/P Pulse Ox O2 Delivery O2 Flow Rate FiO2 10/28/16 14:35 92 20 98 Nasal Cannula 2.0 10/28/16 07:29 98.9 98/55 Intake and Output 10/27/16 10/27/16 10/28/16 15:00 23:00 07:00 Intake Total 700 ml 710 ml 910 ml Output Total 1700 ml 75 ml Balance -1000 ml 710 ml 835 ml Exam louder voice more self decision making cannot settle down obese+ global lymphaedema+ dec bs bibasilar, wet weak coughs+ toes blue black+ Results Result Diagram: 10/28/16 0520 10/28/16 0520 Results 24 hrs Laboratory Tests Test 10/27/16 17:39 10/27/16 21:39 10/28/16 01:53 10/28/16 05:20 Bedside Glucose 115 145 174 White Blood Count 9.6 Red Blood Count 2.69 L Hemoglobin 8.1 L Hematocrit 28.3 L Mean Corpuscular Volume 105.2 H Mean Corpuscular Hemoglobin 30.1 Mean Corpuscular Hemoglobin Concent 28.6 L Red Cell Distribution Width 25.4 H Platelet Count 184 Mean Platelet Volume 11.2 H Neutrophils % 81.6 H Lymphocytes % 9.3 L Monocytes % 6.2 Eosinophils % 0.5 Basophils % 0.2 Nucleated Red Blood Cells % 0.3 H Neutrophils # 7.8 H Lymphocytes # 0.9 Monocytes # 0.6 Eosinophils # 0.1 Basophils # 0.0 Nucleated Red Blood Cells # 0.0 Prothrombin Time 20.8 H Prothrombin Time Ratio 1.6 INR International Normalized Ratio 1.77 Sodium Level 133 L Potassium Level 4.0 Chloride Level 95 L Carbon Dioxide Level 29 Anion Gap 13 Blood Urea Nitrogen 51 H Creatinine 2.02 H Glucose Level 178 Calcium Level 8.4 Total Bilirubin 0.3 Direct Bilirubin 0.00 Indirect Bilirubin 0.3 Aspartate Amino Transf (AST/SGOT) 69 H Alanine Aminotransferase (ALT/SGPT) 79 H Alkaline Phosphatase 256 H Total Protein 5.6 L Albumin 2.5 L Globulin 3.10 Albumin/Globulin Ratio 0.80 Test 10/28/16 05:49 10/28/16 08:55 10/28/16 13:40 Bedside Glucose 186 185 155 Medications Medications Current Medications Acetaminophen (Tylenol Liquid) 650 mg Q4H PRN NGT PAIN AND OR ELEVATED TEMP Last administered on 09/27/16 05:14; Admin Dose 650 MG; Start 09/21/16 at 02:00 Eye Lubricant (Artificial Tears Oph) 2 drop QID BOTH EYES Last administered on 10/28/16 13:42; Admin Dose 2 DROP; Start 09/21/16 at 09:00 Atorvastatin Calcium (Lipitor) 80 mg HS NGT Last administered on 10/27/16 21: 31; Admin Dose 80 MG; Start 09/22/16 at 21:00 Pantoprazole (Protonix Iv) 40 mg AM IV Last administered on 10/28/16 08:53; Admin Dose 40 MG; Start 09/26/16 at 09:00 Epoetin Raj (Epogen (Esrd)) 10,000 units TuThSa@17 SC Last administered on 17:54; Admin Dose 10,000 UNITS; Start 09/26/16 at 17:00 IV Flush (NS 10 ml) 10 ml PRN PRN IV IV PROTOCOL; Start 09/26/16 at 17:30 Morphine Sulfate (morphine) 2 mg Q4H PRN IV PAIN Last administered on 12:10; Admin Dose 2 MG; Start 09/28/16 at 16:00 Miscellaneous Information 1 ea NOTE XX ; Start 10/09/16 at 20:30 Dextrose (D50w Syringe) 25 ml Q15M PRN IV DECREASED GLUCOSE Last administered on 10/14/16 00:31; Admin Dose 25 ML; Start 10/09/16 at 20:30 Glucagon (Glucagen) 1 mg Q15M PRN IM DECREASED GLUCOSE; Start 10/09/16 at 20:30 Glucose (Glutose) 15 gm Q15M PRN BUCCAL DECREASED GLUCOSE; Start 10/09/16 at 20: 30 Metoclopramide HCl (Reglan) 5 mg Q6 IV Last administered on 10/28/16 13:41; Admin Dose 5 MG; Start 10/14/16 at 12:00 Calcium Carbonate (Tums) 500 mg TID NGT Last administered on 10/28/16 13:41; Admin Dose 500 MG; Start 10/15/16 at 21:00 Insulin Glargine (Lantus) 26 unit DAILY@08 SC Last administered on 10/28/16 08 :58; Admin Dose 26 UNIT; Start 10/17/16 at 08:00 Insulin Aspart (Novolog Insulin Pen) NOVOLOG *MODERATE* ALGORI... Q4 SC Last administered on 10/28/16 13:52; Admin Dose 2 UNIT; Start 10/16/16 at 13:00 Metoprolol Tartrate (Lopressor) 25 mg BID PO Last administered on 10/24/16 09: 57; Admin Dose 25 MG; Start 10/20/16 at 21:00 Lactulose (Enulose) 20 gm BID PRN PO CONSTIPATION Last administered on 12:57; Admin Dose 20 GM; Start 10/23/16 at 10:30 Nortriptyline HCl (Aventyl) 50 mg HS PO Last administered on 10/27/16 21:32; Admin Dose 50 MG; Start 10/23/16 at 21:00 Haloperidol (Haldol) 1 mg Q6H PRN IM ANXIETY; Start 10/24/16 at 15:00 Lactobacillus Acidophilus (Florajen3 Capsule) 1 each TID PO Last administered on 10/28/16 13:41; Admin Dose 1 EACH; Start 10/25/16 at 13:30 Warfarin Sodium (Coumadin) 4 mg DAILY@17 NGT ; Start 10/28/16 at 17:00 Ferrous Sulfate (Feosol Liquid Cup) 300 mg TID NGT Last administered on t 13:41; Admin Dose 300 MG; Start 10/27/16 at 21:00 SHAMA LOPEZ MD Oct 28, 2016 15:58
[2016-10-28] MEDS ORDERED: LORAZEPAM 2 MG INJ IV SCH (16:00)
[2016-10-28] MEDS ORDERED: LORAZEPAM 2 MG INJ IM PRN (16:00)
--- NOTE | 2016-10-28 16:03 | RADRPT ---
PROCEDURE: Chest Radiograph. CLINICAL INDICATION: CHF TECHNIQUE: Single frontal chest radiograph. COMPARISON: Chest radiograph 10/24/2016 FINDINGS: A nasogastric tube, left upper extremity PICC, and right chest wall tunneled hemodialysis catheter r emain in place. The heart is enlarged there is moderate central vascular congestion and suggested p ulmonary edema, improved compared to prior study. There is moderate right perihilar infiltrate or a telectasis, also improved.. Bibasilar opacities are consistent with pleural effusions with adjacent atelectasis/infiltrate, improved compared to prior. IMPRESSION: 1. Persistent cardiomegaly with improving central vascular congestion and pulmonary edema compared to 10/24/2016. 2. Improving bibasilar pleural / parenchymal disease. 3. Lines and tubes are stable. RPTAT: KK .Josue Aragon MD, MD Date Time Electronically viewed and signed by .Josue Aragon MD, on 10/28/2016 16:02 .B/
[2016-10-28] MEDS ORDERED: ALBUMIN HUMAN 25% 100 ML IV ONE (17:00)
[2016-10-28] MEDS: WARFARIN 2 MG TAB NGT SCH (17:36)
[2016-10-28] MEDS: ESCITALOPRAM 10 MG TAB NGT SCH (17:36)
[2016-10-28 19:00] VITALS: BP 97/51; RESP 18
[2016-10-28] MEDS: ATORVASTATIN 80 MG TAB NGT SCH (20:35)
[2016-10-29] VITALS (8 sets, daily range): BP systolic 109–121; BP diastolic 49–59; PULSE 59–85; RESP 18
[2016-10-29] MEDS: METOCLOPRAMIDE 10 MG INJ IV SCH ×2 (00:37→05:38)
[2016-10-29] MEDS: INSULIN ASPART [NOVOLOG] 3 ML PEN SC SCH ×6 (00:41→21:00)
[2016-10-29] MEDS: LEVALBUTEROL (NEB) 1.25 MG/0.5 ML AMP HHN SCH ×4 (01:24→20:39)
[2016-10-29] MEDS: IPRATROPIUM (NEB) 0.5 MG/2.5 ML AMP HHN SCH ×4 (01:24→20:39)
[2016-10-29] MEDS: ACETYLCYSTEINE 20% 4 ML VIAL NEB SCH ×4 (01:24→20:39)
[2016-10-29 06:25] LABS: ADD SCAN DIFF NO
[2016-10-29 06:28] LABS: ABNORMAL IP MESSAGE 1; BASOPHILS % 0.1 % (0.0-2.0); EOSINOPHILS # 0.1 10^3/ul (0.0-0.5); EOSINOPHILS % 0.9 % (0.0-7.0); HEMATOCRIT 27.6 % (37.0-47.0); HEMOGLOBIN 7.8 g/dl (12.0-16.0); LYMPHOCYTES # 1.2 10^3/ul (0.8-2.9); LYMPHOCYTES % 11.6 % (15.0-51.0); MEAN CORPUSCULAR HEMOGLOBIN 29.2 pg (29.0-33.0); MEAN CORPUSCULAR HGB CONC 28.3 g/dl (32.0-37.0); MEAN CORPUSCULAR VOLUME 103.4 fl (82.0-101.0); MEAN PLATELET VOLUME 10.8 fl (7.4-10.4); MONOCYTE # 0.7 10^3/ul (0.3-0.9); MONOCYTES % 7.2 % (0.0-11.0); NEUTROPHIL # 7.8 10^3/ul (1.6-7.5); NEUTROPHILS % 77.1 % (39.0-77.0); NUCLEATED RED BLOOD CELLS% 0.4 /100WBC (0.0-0.0); PLATELET COUNT 196 10^3/UL (140-415); RED BLOOD COUNT 2.67 10^6/ul (4.20-5.40); RED CELL DISTRIBUTION WIDTH 25.1 % (11.5-14.5); WHITE BLOOD COUNT 10.1 10^3/ul (4.8-10.8)
[2016-10-29 06:36] LABS: INR 1.76; PROTIME 20.7 Sec (12.2-14.2); PT RATIO 1.6
[2016-10-29 06:47] LABS: ALBUMIN 2.7 g/dl (3.3-4.9)
[2016-10-29 06:48] LABS: POTASSIUM 4.5 mmol/L (3.5-5.1)
[2016-10-29 06:50] LABS: ALBUMIN/GLOBULIN RATIO 0.87; BILIRUBIN,INDIRECT 0.3 mg/dl (0-1.1); BILIRUBIN,TOTAL 0.3 mg/dl (0.2-1.3); CREATININE 2.35 mg/dl (0.44-1.00); TOTAL PROTEIN 5.8 g/dl (6.1-8.1)
[2016-10-29 06:51] LABS: CALCIUM 8.1 mg/dl (8.4-10.2)
[2016-10-29] MEDS: L ACIDOPHIL/B LACTIS/B LONGUM CAPSULE PO SCH ×3 (08:38→21:01)
[2016-10-29] MEDS: CALCIUM CARBONATE 500 MG CHEW TAB NGT SCH ×3 (08:39→21:01)
[2016-10-29] MEDS: ESCITALOPRAM 10 MG TAB NGT SCH (08:39)
[2016-10-29] MEDS: FERROUS SULFATE 60 MG/ML 5ML CUP NGT SCH ×3 (08:39→21:01)
[2016-10-29] MEDS: PANTOPRAZOLE 40 MG INJ IV SCH (08:39)
[2016-10-29] MEDS: ARTIFICIAL TEARS 15 ML OPH BOTH EYES SCH ×4 (08:40→21:02)
[2016-10-29] MEDS: METOPROLOL 25 MG TAB PO SCH ×2 (08:40→21:03)
[2016-10-29] MEDS: INSULIN GLARGINE [LANtus] 3 ML PEN SC SCH (09:07)
[2016-10-29] MEDS ORDERED: LORAZEPAM 2 MG INJ IV PRN (10:30)
[2016-10-29] MEDS ORDERED: FUROSEMIDE 20 MG INJ IV ONE (10:30)
--- NOTE | 2016-10-29 13:23 | CONS ---
Date/Time of Note Date/Time of Note DATE: 10/29/16 TIME: 13:14 Assessment/Plan Assessment/Plan Chief Complaint/Hosp Course 1. Acute Renal Failure due to ATN , she is oliguric . She had hemodialysis 2 days ago . I will order 2 hours of dry UF today and routine hemodialysis for tomorrow . 2. ALOC , she continues to be very weak 3. liver enzyme elevation due to anoxia , enzymes are decreasing . 4. CHF , she continues to have some lung congestion . 5. hypocalcemia/hypoalbuminemia , calcium is higher 6. anemia , she has not had any recent GI bleeding . 7. peripheral vascular disease . 8. respiratory failure , off ventilator . 9 dysphagia , she is on tube feeding and is having a video swallowing study today . 10. she is now on 3 anticoagulants . Will need review by cardiology . Problems: Consultation Date/Type/Reason Admit Date/Time Sep 20, 2016 at 19:21 Initial Consult Date 09/23/16 Type of Consultation: renal Referring Provider: ZANDRA ROBISON MD, [facility] Interval Summary Free Text/Dictation Patient continues to be very lethargic and weak . Subjective hx not possible: pt non-verbal Exam/Review of Systems Vital Signs Vitals Vital Signs Date Time Temp Pulse Resp B/P Pulse Ox O2 Delivery O2 Flow Rate FiO2 10/29/16 08:30 Nasal Cannula 2.0 10/29/16 07:17 98.1 92 116/51 96 10/29/16 01:38 18 Intake and Output 10/28/16 10/28/16 10/29/16 15:00 23:00 07:00 Intake Total 100 ml 830 ml Output Total 100 ml 90 ml Balance 0 ml 740 ml Exam Constitutional: non-verbal Respiratory: clear to auscultation, diminished breath sounds Cardiovascular: regular rate and rhythm Musculoskeletal: nl extremities to inspection Results Result Diagram: 10/29/16 0601 10/29/16 0601 Results 24 hrs Laboratory Tests Test 10/28/16 13:40 10/28/16 17:39 10/28/16 20:34 10/29/16 00:38 Bedside Glucose 155 147 158 160 Test 10/29/16 05:39 10/29/16 06:01 10/29/16 08:46 Bedside Glucose 172 187 White Blood Count 10.1 Red Blood Count 2.67 L Hemoglobin 7.8 L Hematocrit 27.6 L Mean Corpuscular Volume 103.4 H Mean Corpuscular Hemoglobin 29.2 Mean Corpuscular Hemoglobin Concent 28.3 L Red Cell Distribution Width 25.1 H Platelet Count 196 Mean Platelet Volume 10.8 H Neutrophils % 77.1 H Lymphocytes % 11.6 L Monocytes % 7.2 Eosinophils % 0.9 Basophils % 0.1 Nucleated Red Blood Cells % 0.4 H Neutrophils # 7.8 H Lymphocytes # 1.2 Monocytes # 0.7 Eosinophils # 0.1 Basophils # 0.0 Nucleated Red Blood Cells # 0.0 Prothrombin Time 20.7 H Prothrombin Time Ratio 1.6 INR International Normalized Ratio 1.76 Sodium Level 134 L Potassium Level 4.5 Chloride Level 94 L Carbon Dioxide Level 29 Anion Gap 16 Blood Urea Nitrogen 64 H Creatinine 2.35 H Glucose Level 149 Calcium Level 8.1 L Total Bilirubin 0.3 Direct Bilirubin 0.00 Indirect Bilirubin 0.3 Aspartate Amino Transf (AST/SGOT) 68 H Alanine Aminotransferase (ALT/SGPT) 77 H Alkaline Phosphatase 249 H Total Protein 5.8 L Albumin 2.7 L Globulin 3.10 Albumin/Globulin Ratio 0.87 Medications Medications Current Medications Acetaminophen (Tylenol Liquid) 650 mg Q4H PRN NGT PAIN AND OR ELEVATED TEMP Last administered on 09/27/16 05:14; Admin Dose 650 MG; Start 09/21/16 at 02:00 Eye Lubricant (Artificial Tears Oph) 2 drop QID BOTH EYES Last administered on 10/29/16 08:40; Admin Dose 2 DROP; Start 09/21/16 at 09:00 Atorvastatin Calcium (Lipitor) 80 mg HS NGT Last administered on 10/28/16 20: 35; Admin Dose 80 MG; Start 09/22/16 at 21:00 Pantoprazole (Protonix Iv) 40 mg AM IV Last administered on 10/29/16 08:39; Admin Dose 40 MG; Start 09/26/16 at 09:00 Epoetin Raj (Epogen (Esrd)) 10,000 units TuThSa@17 SC Last administered on 17:54; Admin Dose 10,000 UNITS; Start 09/26/16 at 17:00 IV Flush (NS 10 ml) 10 ml PRN PRN IV IV PROTOCOL; Start 09/26/16 at 17:30 Morphine Sulfate (morphine) 2 mg Q4H PRN IV PAIN Last administered on 12:10; Admin Dose 2 MG; Start 09/28/16 at 16:00 Miscellaneous Information 1 ea NOTE XX ; Start 10/09/16 at 20:30 Dextrose (D50w Syringe) 25 ml Q15M PRN IV DECREASED GLUCOSE Last administered on 10/14/16 00:31; Admin Dose 25 ML; Start 10/09/16 at 20:30 Glucagon (Glucagen) 1 mg Q15M PRN IM DECREASED GLUCOSE; Start 10/09/16 at 20:30 Glucose (Glutose) 15 gm Q15M PRN BUCCAL DECREASED GLUCOSE; Start 10/09/16 at 20: 30 Calcium Carbonate (Tums) 500 mg TID NGT Last administered on 10/29/16 08:39; Admin Dose 500 MG; Start 10/15/16 at 21:00 Insulin Glargine (Lantus) 26 unit DAILY@08 SC Last administered on 10/29/16 09 :07; Admin Dose 26 UNIT; Start 10/17/16 at 08:00 Insulin Aspart (Novolog Insulin Pen) NOVOLOG *MODERATE* ALGORI... Q4 SC Last administered on 10/29/16 09:07; Admin Dose 4 UNIT; Start 10/16/16 at 13:00 Metoprolol Tartrate (Lopressor) 25 mg BID PO Last administered on 10/24/16 09: 57; Admin Dose 25 MG; Start 10/20/16 at 21:00 Lactulose (Enulose) 20 gm BID PRN PO CONSTIPATION Last administered on 12:57; Admin Dose 20 GM; Start 10/23/16 at 10:30 Lactobacillus Acidophilus (Florajen3 Capsule) 1 each TID PO Last administered on 10/29/16 08:38; Admin Dose 1 EACH; Start 10/25/16 at 13:30 Warfarin Sodium (Coumadin) 4 mg DAILY@17 NGT Last administered on 10/28/16 17: 36; Admin Dose 4 MG; Start 10/28/16 at 17:00 Ferrous Sulfate (Feosol Liquid Cup) 300 mg TID NGT Last administered on 08:39; Admin Dose 300 MG; Start 10/27/16 at 21:00 Escitalopram Oxalate (Lexapro) 10 mg DAILY NGT Last administered on 10/29/16t 08:39; Admin Dose 10 MG; Start 10/28/16 at 16:00 Lorazepam (Ativan) 1 mg Q6H PRN IV ANXIETY; Start 10/29/16 at 10:30 Amylase/Lipase/ Protease (CREON ([id number])) 3 cap Q6 NGT ; Start 10/29/16 at 13:00 DAMIR MARTINEZ MD Oct 29, 2016 13:23
[2016-10-29] MEDS: CREON (12k-38k-60k) 1 CAP NGT SCH ×3 (14:31→23:16)
--- NOTE | 2016-10-29 14:57 | PN ---
Date/Time of Note Date/Time of Note DATE: 10/29/16 TIME: 14:52 Assessment/Plan VTE Prophylaxis VTE Prophylaxis Intervention: other (coum) Lines/Catheters IV Catheter Type (from Nrsg): Permacath Central line still needed: No Urinary Cath still in place: Yes Reason Cath still needed: terminal illness/intractable pain Assessment/Plan Assessment/Plan 1. cad/ htn/ pad/ edema/ anticoag---very slow recovery 2. arf/ anemia---dialysis 3. rld/ lung effussion---very slow recovery 4. dm 5. musc weak/ dysphagia 6. depression anxiety 7. obesity ---per cards ---renal ---swallow eval ---replace calc supp ---cont all supportive cares Subjective 24 Hr Interval Summary Free Text/Dictation anxious, feels tied down Exam/Review of Systems Vital Signs Vitals Vital Signs Date Time Temp Pulse Resp B/P Pulse Ox O2 Delivery O2 Flow Rate FiO2 10/29/16 14:00 2.0 10/29/16 08:30 Nasal Cannula 10/29/16 07:17 98.1 92 116/51 96 10/29/16 01:38 18 Intake and Output 10/28/16 10/28/16 10/29/16 15:00 23:00 07:00 Intake Total 100 ml 830 ml Output Total 100 ml 90 ml Balance 0 ml 740 ml Exam obese+ global lymphaedema, pink thin skin rashes concepción bilat le+ toes blue black+ dec bs+ rr diast m+ Results Result Diagram: 10/29/16 0601 10/29/16 0601 Results 24 hrs Laboratory Tests Test 10/28/16 17:39 10/28/16 20:34 10/29/16 00:38 10/29/16 05:39 Bedside Glucose 147 158 160 172 Test 10/29/16 06:01 10/29/16 08:46 10/29/16 13:04 White Blood Count 10.1 Red Blood Count 2.67 L Hemoglobin 7.8 L Hematocrit 27.6 L Mean Corpuscular Volume 103.4 H Mean Corpuscular Hemoglobin 29.2 Mean Corpuscular Hemoglobin Concent 28.3 L Red Cell Distribution Width 25.1 H Platelet Count 196 Mean Platelet Volume 10.8 H Neutrophils % 77.1 H Lymphocytes % 11.6 L Monocytes % 7.2 Eosinophils % 0.9 Basophils % 0.1 Nucleated Red Blood Cells % 0.4 H Neutrophils # 7.8 H Lymphocytes # 1.2 Monocytes # 0.7 Eosinophils # 0.1 Basophils # 0.0 Nucleated Red Blood Cells # 0.0 Prothrombin Time 20.7 H Prothrombin Time Ratio 1.6 INR International Normalized Ratio 1.76 Sodium Level 134 L Potassium Level 4.5 Chloride Level 94 L Carbon Dioxide Level 29 Anion Gap 16 Blood Urea Nitrogen 64 H Creatinine 2.35 H Glucose Level 149 Calcium Level 8.1 L Total Bilirubin 0.3 Direct Bilirubin 0.00 Indirect Bilirubin 0.3 Aspartate Amino Transf (AST/SGOT) 68 H Alanine Aminotransferase (ALT/SGPT) 77 H Alkaline Phosphatase 249 H Total Protein 5.8 L Albumin 2.7 L Globulin 3.10 Albumin/Globulin Ratio 0.87 Bedside Glucose 187 153 Medications Medications Current Medications Acetaminophen (Tylenol Liquid) 650 mg Q4H PRN NGT PAIN AND OR ELEVATED TEMP Last administered on 09/27/16 05:14; Admin Dose 650 MG; Start 09/21/16 at 02:00 Eye Lubricant (Artificial Tears Oph) 2 drop QID BOTH EYES Last administered on 10/29/16 13:04; Admin Dose 2 DROP; Start 09/21/16 at 09:00 Atorvastatin Calcium (Lipitor) 80 mg HS NGT Last administered on 10/28/16 20: 35; Admin Dose 80 MG; Start 09/22/16 at 21:00 Pantoprazole (Protonix Iv) 40 mg AM IV Last administered on 10/29/16 08:39; Admin Dose 40 MG; Start 09/26/16 at 09:00 Epoetin Raj (Epogen (Esrd)) 10,000 units TuTa@17 SC Last administered on 17:54; Admin Dose 10,000 UNITS; Start 09/26/16 at 17:00 IV Flush (NS 10 ml) 10 ml PRN PRN IV IV PROTOCOL; Start 09/26/16 at 17:30 Morphine Sulfate (morphine) 2 mg Q4H PRN IV PAIN Last administered on 12:10; Admin Dose 2 MG; Start 09/28/16 at 16:00 Miscellaneous Information 1 ea NOTE XX ; Start 10/09/16 at 20:30 Dextrose (D50w Syringe) 25 ml Q15M PRN IV DECREASED GLUCOSE Last administered on 10/14/16 00:31; Admin Dose 25 ML; Start 10/09/16 at 20:30 Glucagon (Glucagen) 1 mg Q15M PRN IM DECREASED GLUCOSE; Start 10/09/16 at 20:30 Glucose (Glutose) 15 gm Q15M PRN BUCCAL DECREASED GLUCOSE; Start 10/09/16 at 20: 30 Calcium Carbonate (Tums) 500 mg TID NGT Last administered on 10/29/16 13:04; Admin Dose 500 MG; Start 10/15/16 at 21:00 Insulin Glargine (Lantus) 26 unit DAILY@08 SC Last administered on 10/29/16 09 :07; Admin Dose 26 UNIT; Start 10/17/16 at 08:00 Insulin Aspart (Novolog Insulin Pen) NOVOLOG *MODERATE* ALGORI... Q4 SC Last administered on 10/29/16 13:14; Admin Dose 2 UNIT; Start 10/16/16 at 13:00 Metoprolol Tartrate (Lopressor) 25 mg BID PO Last administered on 10/24/16 09: 57; Admin Dose 25 MG; Start 10/20/16 at 21:00 Lactulose (Enulose) 20 gm BID PRN PO CONSTIPATION Last administered on 12:57; Admin Dose 20 GM; Start 10/23/16 at 10:30 Lactobacillus Acidophilus (Florajen3 Capsule) 1 each TID PO Last administered on 10/29/16 13:04; Admin Dose 1 EACH; Start 10/25/16 at 13:30 Warfarin Sodium (Coumadin) 4 mg DAILY@17 NGT Last administered on 10/28/16 17: 36; Admin Dose 4 MG; Start 10/28/16 at 17:00 Ferrous Sulfate (Feosol Liquid Cup) 300 mg TID NGT Last administered on 13:04; Admin Dose 300 MG; Start 10/27/16 at 21:00 Escitalopram Oxalate (Lexapro) 10 mg DAILY NGT Last administered on 10/29/16 08:39; Admin Dose 10 MG; Start 10/28/16 at 16:00 Lorazepam (Ativan) 1 mg Q6H PRN IV ANXIETY; Start 4/25/17 at 10:30 Amylase/Lipase/ Protease (CREON ([id number])) 3 cap Q6 NGT Last administered on 10/29/16t 14:31; Admin Dose 3 CAP; Start 10/29/16 at 13:00 SHAMA LOPEZ MD Oct 29, 2016 14:57
--- NOTE | 2016-10-29 15:07 | RADRPT ---
PROCEDURE: XR Chest. CLINICAL INDICATION: chf TECHNIQUE: Single frontal view of the chest was obtained. COMPARISON: Chest x-ray from 10/28/2016 FINDINGS: An enteric tube, right internal jugular vein Perma-Cath, and left-sided PICC line are unchanged in p osition. There is stable mild cardiomegaly. There is stable moderate pulmonary vascular congestion. There are stable small bilateral pleural effusions with discoid opacities again identified in the ri ght mid lung due to subsegmental atelectasis versus infiltrate. IMPRESSION: No significant interval change compared to the prior chest x-ray from 10/28/2016. RPTAT: EE Physician Suzy Date Time Electronically viewed and signed by Physician Suzy on 10/29/2016 15:07 /
[2016-10-29 15:54] LABS: ADD UMIC YES; UR BILIRUBIN (Dip) 1+ (NEGATIVE); UR BLOOD (Dip) 3+ (NEGATIVE); UR CLARITY CLOUDY (CLEAR); UR COLOR YELLOW (YELLOW); UR GLUCOSE (Dip) NEGATIVE (NEGATIVE); UR KETONES (Dip) NEGATIVE (NEGATIVE); UR LEUKOCYTE ESTERASE (Dip) 2+ (NEGATIVE); UR NITRITE (Dip) NEGATIVE (NEGATIVE); UR TOTAL PROTEIN (Dip) 4+ (NEGATIVE); UR UROBILINOGEN (Dip) 1.0 E.U./dL (0.1-1.0)
[2016-10-29 16:11] LABS: UR BACTERIA MANY; UR SQUAMOUS EPITHELIAL CELL MANY; URINE RBCS >50 /HPF (0)
[2016-10-29] MEDS ORDERED: CALCIUM GLUCONATE 10% 2 GM in SOD CHLORIDE 0.9% 100 ML IVPB ONE (16:30)
[2016-10-29] MEDS: WARFARIN 2 MG TAB NGT SCH (17:10)
[2016-10-29] MEDS: EPOETIN 10000 UNITS/1 ML INJ (ESRD) SC SCH (17:12)
[2016-10-29 17:15] LABS: ADD SCAN DIFF NO
[2016-10-29 17:17] LABS: ABNORMAL IP MESSAGE 1; BASOPHILS % 0.3 % (0.0-2.0); EOSINOPHILS # 0.1 10^3/ul (0.0-0.5); EOSINOPHILS % 0.5 % (0.0-7.0); HEMATOCRIT 28.9 % (37.0-47.0); HEMOGLOBIN 8.6 g/dl (12.0-16.0); LYMPHOCYTES # 0.7 10^3/ul (0.8-2.9); LYMPHOCYTES % 7.5 % (15.0-51.0); MEAN CORPUSCULAR HEMOGLOBIN 30.8 pg (29.0-33.0); MEAN CORPUSCULAR HGB CONC 29.8 g/dl (32.0-37.0); MEAN CORPUSCULAR VOLUME 103.6 fl (82.0-101.0); MEAN PLATELET VOLUME 10.5 fl (7.4-10.4); MONOCYTE # 0.7 10^3/ul (0.3-0.9); MONOCYTES % 7.4 % (0.0-11.0); NEUTROPHIL # 7.9 10^3/ul (1.6-7.5); NEUTROPHILS % 80.8 % (39.0-77.0); NUCLEATED RED BLOOD CELLS% 0.2 /100WBC (0.0-0.0); PLATELET COUNT 186 10^3/UL (140-415); RED BLOOD COUNT 2.79 10^6/ul (4.20-5.40); RED CELL DISTRIBUTION WIDTH 24.4 % (11.5-14.5); WHITE BLOOD COUNT 9.7 10^3/ul (4.8-10.8)
[2016-10-29 17:49] LABS: ICTOTEST NEGATIVE (NEGATIVE)
--- NOTE | 2016-10-29 18:31 | CONS ---
Date/Time of Note Date/Time of Note DATE: 10/29/16 TIME: 18:30 Consult Date/Type/Reason Admit Date/Time Sep 20, 2016 at 19:21 Initial Consult Date 10/22/16 Type of Consultation: Endovascular Cardiology Ordering Provider: ZANDRA ROBISON MD, [facility] Objective Vital Signs Date Time Temp Pulse Resp B/P Pulse Ox O2 Delivery O2 Flow Rate FiO2 10/29/16 16:15 84 16 10/29/16 14:00 2.0 10/29/16 08:30 Nasal Cannula 10/29/16 07:17 98.1 116/51 96 Intake and Output 10/28/16 10/28/16 10/29/16 15:00 23:00 07:00 Intake Total 1000 ml 830 ml Output Total 100 ml 90 ml Balance 900 ml 740 ml Results/Medications Result Diagram: 10/29/16 1630 10/29/16 0601 Results 24 hrs Laboratory Tests Test 10/28/16 20:34 10/29/16 00:38 10/29/16 05:39 10/29/16 06:01 Bedside Glucose 158 160 172 White Blood Count 10.1 Red Blood Count 2.67 L Hemoglobin 7.8 L Hematocrit 27.6 L Mean Corpuscular Volume 103.4 H Mean Corpuscular Hemoglobin 29.2 Mean Corpuscular Hemoglobin Concent 28.3 L Red Cell Distribution Width 25.1 H Platelet Count 196 Mean Platelet Volume 10.8 H Neutrophils % 77.1 H Lymphocytes % 11.6 L Monocytes % 7.2 Eosinophils % 0.9 Basophils % 0.1 Nucleated Red Blood Cells % 0.4 H Neutrophils # 7.8 H Lymphocytes # 1.2 Monocytes # 0.7 Eosinophils # 0.1 Basophils # 0.0 Nucleated Red Blood Cells # 0.0 Prothrombin Time 20.7 H Prothrombin Time Ratio 1.6 INR International Normalized Ratio 1.76 Sodium Level 134 L Potassium Level 4.5 Chloride Level 94 L Carbon Dioxide Level 29 Anion Gap 16 Blood Urea Nitrogen 64 H Creatinine 2.35 H Glucose Level 149 Calcium Level 8.1 L Total Bilirubin 0.3 Direct Bilirubin 0.00 Indirect Bilirubin 0.3 Aspartate Amino Transf (AST/SGOT) 68 H Alanine Aminotransferase (ALT/SGPT) 77 H Alkaline Phosphatase 249 H Total Protein 5.8 L Albumin 2.7 L Globulin 3.10 Albumin/Globulin Ratio 0.87 Test 4/25/17 08:46 10/29/16 13:04 10/29/16 15:15 10/29/16 16:30 Bedside Glucose 187 153 Urine Color YELLOW Urine Clarity CLOUDY Urine pH 5.5 Urine Specific [place] 1.025 Urine Ketones NEGATIVE Urine Nitrite NEGATIVE Urine Bilirubin 1+ H Urine Ictotest NEGATIVE Urine Urobilinogen 1.0 E.U./dL Urine Leukocyte Esterase 2+ H Urine Microscopic RBC >50 Urine Microscopic WBC >50 Urine Squamous Epithelial Cells MANY Urine Bacteria MANY Urine Coarse Granular Casts RARE Urine Yeast MANY Urine Hemoglobin 3+ H Urine Glucose NEGATIVE Urine Total Protein 4+ H White Blood Count 9.7 Red Blood Count 2.79 L Hemoglobin 8.6 L Hematocrit 28.9 L Mean Corpuscular Volume 103.6 H Mean Corpuscular Hemoglobin 30.8 Mean Corpuscular Hemoglobin Concent 29.8 L Red Cell Distribution Width 24.4 H Platelet Count 186 Mean Platelet Volume 10.5 H Neutrophils % 80.8 H Lymphocytes % 7.5 L Monocytes % 7.4 Eosinophils % 0.5 Basophils % 0.3 Nucleated Red Blood Cells % 0.2 H Neutrophils # 7.9 H Lymphocytes # 0.7 L Monocytes # 0.7 Eosinophils # 0.1 Basophils # 0.0 Nucleated Red Blood Cells # 0.0 Test 10/29/16 17:09 Bedside Glucose 139 Medications Current Medications Acetaminophen (Tylenol Liquid) 650 mg Q4H PRN NGT PAIN AND OR ELEVATED TEMP Last administered on 09/27/16 05:14; Admin Dose 650 MG; Start 09/21/16 at 02:00 Eye Lubricant (Artificial Tears Oph) 2 drop QID BOTH EYES Last administered on 10/29/16 17:10; Admin Dose 2 DROP; Start 09/21/16 at 09:00 Atorvastatin Calcium (Lipitor) 80 mg HS NGT Last administered on 10/28/16 20: 35; Admin Dose 80 MG; Start 09/22/16 at 21:00 Pantoprazole (Protonix Iv) 40 mg AM IV Last administered on 10/29/16 08:39; Admin Dose 40 MG; Start 09/26/16 at 09:00 Epoetin Raj (Epogen (Esrd)) 10,000 units TuThSa@17 SC Last administered on 17:12; Admin Dose 10,000 UNITS; Start 09/26/16 at 17:00 IV Flush (NS 10 ml) 10 ml PRN PRN IV IV PROTOCOL; Start 09/26/16 at 17:30 Morphine Sulfate (morphine) 2 mg Q4H PRN IV PAIN Last administered on 12:10; Admin Dose 2 MG; Start 09/28/16 at 16:00 Miscellaneous Information 1 ea NOTE XX ; Start 10/09/16 at 20:30 Dextrose (D50w Syringe) 25 ml Q15M PRN IV DECREASED GLUCOSE Last administered on 10/14/16 00:31; Admin Dose 25 ML; Start 10/09/16 at 20:30 Glucagon (Glucagen) 1 mg Q15M PRN IM DECREASED GLUCOSE; Start 10/09/16 at 20:30 Glucose (Glutose) 15 gm Q15M PRN BUCCAL DECREASED GLUCOSE; Start 10/09/16 at 20: 30 Calcium Carbonate (Tums) 500 mg TID NGT Last administered on 10/29/16 13:04; Admin Dose 500 MG; Start 10/15/16 at 21:00 Insulin Glargine (Lantus) 26 unit DAILY@08 SC Last administered on 10/29/16 09 :07; Admin Dose 26 UNIT; Start 10/17/16 at 08:00 Insulin Aspart (Novolog Insulin Pen) NOVOLOG *MODERATE* ALGORI... Q4 SC Last administered on 10/29/16 13:14; Admin Dose 2 UNIT; Start 10/16/16 at 13:00 Metoprolol Tartrate (Lopressor) 25 mg BID PO Last administered on 10/24/16 09: 57; Admin Dose 25 MG; Start 10/20/16 at 21:00 Lactulose (Enulose) 20 gm BID PRN PO CONSTIPATION Last administered on 12:57; Admin Dose 20 GM; Start 10/23/16 at 10:30 Lactobacillus Acidophilus (Florajen3 Capsule) 1 each TID PO Last administered on 10/29/16 13:04; Admin Dose 1 EACH; Start 10/25/16 at 13:30 Warfarin Sodium (Coumadin) 4 mg DAILY@17 NGT Last administered on 10/29/16 17: 10; Admin Dose 4 MG; Start 10/28/16 at 17:00 Ferrous Sulfate (Feosol Liquid Cup) 300 mg TID NGT Last administered on 13:04; Admin Dose 300 MG; Start 10/27/16 at 21:00 Escitalopram Oxalate (Lexapro) 10 mg DAILY NGT Last administered on 10/29/16 08:39; Admin Dose 10 MG; Start 10/28/16 at 16:00 Lorazepam (Ativan) 1 mg Q6H PRN IV ANXIETY; Start 10/29/16 at 10:30 Amylase/Lipase/ Protease 3 cap 3 cap Q6 NGT Last administered on 10/29/16 14: 31; Admin Dose 3 CAP; Start 10/29/16 at 13:00 Calcium Gluconate/ Sodium Chloride (Ca Gluc/NS) 120 ml @ 60 mls/hr ONCE ONCE IVPB Last administered on 10/29/16 17:31; Admin Dose 60 MLS/HR; Start at 16:30; Stop 10/29/16 at 18:29 Assessment/Plan Chief Complaint/Hosp Course Patient is 71 year old F with PMH of HTn, HLD, 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 Patient was seen and examined at bedside. She has NGT placed so her speech was not that clear. she does feel overall weak but stable. denies any CP or SOB. she has resting leg pain on and off according to her but there is clear gangrene on toes. its not dry yet but in the process. Problems: Additional Assessment/Plan Recovering from NV slowly Continue Med mx has gangrene of toes with PAD microvascular vs cholesterol emboli in case of groin access. Pt will need further work up for her PAD once stable Continue current medical management. VIRGINIE JUARES MD Oct 29, 2016 18:31
[2016-10-29] MEDS: ATORVASTATIN 80 MG TAB NGT SCH (21:01)
[2016-10-30] MEDS: INSULIN ASPART [NOVOLOG] 3 ML PEN SC SCH ×6 (00:30→21:00)
[2016-10-30] MEDS: ACETYLCYSTEINE 20% 4 ML VIAL NEB SCH ×4 (02:16→20:13)
[2016-10-30] MEDS: LEVALBUTEROL (NEB) 1.25 MG/0.5 ML AMP HHN SCH ×4 (02:16→20:13)
[2016-10-30] MEDS: IPRATROPIUM (NEB) 0.5 MG/2.5 ML AMP HHN SCH ×4 (02:16→20:13)
[2016-10-30] MEDS: CREON (12k-38k-60k) 1 CAP NGT SCH ×4 (06:15→23:41)
[2016-10-30 06:26] LABS: POTASSIUM 3.6 mmol/L (3.5-5.1)
[2016-10-30 06:28] LABS: CREATININE 1.81 mg/dl (0.44-1.00)
[2016-10-30 06:29] LABS: CALCIUM 8.4 mg/dl (8.4-10.2)
[2016-10-30 06:31] LABS: INR 2.28; PROTIME 25.4 Sec (12.2-14.2)
[2016-10-30 08:03] VITALS: BP 88/52; RESP 16
[2016-10-30 08:20] VITALS: BP 95/58; PULSE 89; RESP 16
[2016-10-30] MEDS: INSULIN GLARGINE [LANtus] 3 ML PEN SC SCH (08:31)
[2016-10-30] MEDS: METOPROLOL 25 MG TAB PO SCH ×2 (08:46→21:02)
[2016-10-30] MEDS: FERROUS SULFATE 60 MG/ML 5ML CUP NGT SCH ×4 (08:46→21:01)
[2016-10-30] MEDS: L ACIDOPHIL/B LACTIS/B LONGUM CAPSULE PO SCH ×4 (08:46→21:02)
[2016-10-30] MEDS: ARTIFICIAL TEARS 15 ML OPH BOTH EYES SCH ×4 (08:46→21:01)
[2016-10-30] MEDS: PANTOPRAZOLE 40 MG INJ IV SCH (08:46)
[2016-10-30] MEDS: CALCIUM CARBONATE 500 MG CHEW TAB NGT SCH ×4 (08:46→21:01)
[2016-10-30] MEDS: LORAZEPAM 2 MG INJ IV PRN (09:35)
--- NOTE | 2016-10-30 14:26 | PN ---
Date/Time of Note Date/Time of Note DATE: 10/30/16 TIME: 14:19 Assessment/Plan VTE Prophylaxis VTE Prophylaxis Intervention: other (coum) Lines/Catheters IV Catheter Type (from Nrsg): PERMACATH Central line still needed: No Urinary Cath still in place: Yes Reason Cath still needed: terminal illness/intractable pain Assessment/Plan Assessment/Plan 1. cad/ htn/ pad/ 2. rld/ pulm effusion 3. arf/ anemia/ edema--dialysis/ diuretic 4. musc weak/ dysphagia--ngt feed 5. obesity 6. dm 7. anxiety depression ---per cards ---aggressive chest PT/RT ---per renal ---needs to promote more awake time to strengthen musc ---cont all supportive cares Subjective 24 Hr Interval Summary Free Text/Dictation weak coughs, frown, louder voice Exam/Review of Systems Vital Signs Vitals Vital Signs Date Time Temp Pulse Resp B/P Pulse Ox O2 Delivery O2 Flow Rate FiO2 10/30/16 14:03 86 16 Nasal Cannula 2.0 10/30/16 08:20 95/58 10/30/16 08:03 97.6 98 Intake and Output 10/29/16 10/29/16 10/30/16 15:00 23:00 07:00 Intake Total 1300 ml Output Total 2550 ml Balance -1250 ml Exam in bed, sleepy dec bs rr daist m+ rt arm lymphadema+ toes blue black+ Results Result Diagram: 10/29/16 1630 10/30/16 0527 Results 24 hrs Laboratory Tests Test 10/29/16 15:15 10/29/16 16:30 10/29/16 17:09 10/29/16 21:13 Urine Color YELLOW Urine Clarity CLOUDY Urine pH 5.5 Urine Specific [place] 1.025 Urine Ketones NEGATIVE Urine Nitrite NEGATIVE Urine Bilirubin 1+ H Urine Ictotest NEGATIVE Urine Urobilinogen 1.0 E.U./dL Urine Leukocyte Esterase 2+ H Urine Microscopic RBC >50 Urine Microscopic WBC >50 Urine Squamous Epithelial Cells MANY Urine Bacteria MANY Urine Coarse Granular Casts RARE Urine Yeast MANY Urine Hemoglobin 3+ H Urine Glucose NEGATIVE Urine Total Protein 4+ H White Blood Count 9.7 Red Blood Count 2.79 L Hemoglobin 8.6 L Hematocrit 28.9 L Mean Corpuscular Volume 103.6 H Mean Corpuscular Hemoglobin 30.8 Mean Corpuscular Hemoglobin Concent 29.8 L Red Cell Distribution Width 24.4 H Platelet Count 186 Mean Platelet Volume 10.5 H Neutrophils % 80.8 H Lymphocytes % 7.5 L Monocytes % 7.4 Eosinophils % 0.5 Basophils % 0.3 Nucleated Red Blood Cells % 0.2 H Neutrophils # 7.9 H Lymphocytes # 0.7 L Monocytes # 0.7 Eosinophils # 0.1 Basophils # 0.0 Nucleated Red Blood Cells # 0.0 Bedside Glucose 139 125 Test 10/30/16 00:21 10/30/16 04:28 10/30/16 05:00 10/30/16 05:27 Bedside Glucose 134 123 Prothrombin Time 25.4 #H Prothrombin Time Ratio 2.0 INR International Normalized Ratio 2.28 Sodium Level 137 Potassium Level 3.6 Chloride Level 100 Carbon Dioxide Level 28 Anion Gap 13 Blood Urea Nitrogen 47 #H Creatinine 1.81 H Glucose Level 109 # Calcium Level 8.4 Test 10/30/16 08:18 10/30/16 12:06 Bedside Glucose 98 92 Medications Medications Current Medications Acetaminophen (Tylenol Liquid) 650 mg Q4H PRN NGT PAIN AND OR ELEVATED TEMP Last administered on 09/27/16 05:14; Admin Dose 650 MG; Start 09/21/16 at 02:00 Eye Lubricant (Artificial Tears Oph) 2 drop QID BOTH EYES Last administered on 10/30/16 12:26; Admin Dose 2 DROP; Start 09/21/16 at 09:00 Atorvastatin Calcium (Lipitor) 80 mg HS NGT Last administered on 10/29/16 21: 01; Admin Dose 80 MG; Start 09/22/16 at 21:00 Pantoprazole (Protonix Iv) 40 mg AM IV Last administered on 10/30/16 08:46; Admin Dose 40 MG; Start 09/26/16 at 09:00 Epoetin Raj (Epogen (Esrd)) 10,000 units TuThSa@17 SC Last administered on 17:12; Admin Dose 10,000 UNITS; Start 09/26/16 at 17:00 IV Flush (NS 10 ml) 10 ml PRN PRN IV IV PROTOCOL; Start 09/26/16 at 17:30 Morphine Sulfate (morphine) 2 mg Q4H PRN IV PAIN Last administered on 12:10; Admin Dose 2 MG; Start 09/28/16 at 16:00 Miscellaneous Information 1 ea NOTE XX ; Start 10/09/16 at 20:30 Dextrose (D50w Syringe) 25 ml Q15M PRN IV DECREASED GLUCOSE Last administered on 10/14/16 00:31; Admin Dose 25 ML; Start 10/09/16 at 20:30 Glucagon (Glucagen) 1 mg Q15M PRN IM DECREASED GLUCOSE; Start 10/09/16 at 20:30 Glucose (Glutose) 15 gm Q15M PRN BUCCAL DECREASED GLUCOSE; Start 10/09/16 at 20: 30 Calcium Carbonate (Tums) 500 mg TID NGT Last administered on 10/30/16 12:26; Admin Dose 500 MG; Start 10/15/16 at 21:00 Insulin Glargine (Lantus) 26 unit DAILY@08 SC Last administered on 10/30/16 08 :31; Admin Dose 26 UNIT; Start 10/17/16 at 08:00 Insulin Aspart (Novolog Insulin Pen) NOVOLOG *MODERATE* ALGORI... Q4 SC Last administered on 10/29/16 13:14; Admin Dose 2 UNIT; Start 10/16/16 at 13:00 Metoprolol Tartrate (Lopressor) 25 mg BID PO Last administered on 10/29/16 21: 03; Admin Dose 25 MG; Start 10/20/16 at 21:00 Lactulose (Enulose) 20 gm BID PRN PO CONSTIPATION Last administered on 12:57; Admin Dose 20 GM; Start 10/23/16 at 10:30 Lactobacillus Acidophilus (Florajen3 Capsule) 1 each TID PO Last administered on 10/30/16 12:26; Admin Dose 1 EACH; Start 10/25/16 at 13:30 Warfarin Sodium (Coumadin) 4 mg DAILY@17 NGT Last administered on 10/29/16 17: 10; Admin Dose 4 MG; Start 10/28/16 at 17:00 Ferrous Sulfate (Feosol Liquid Cup) 300 mg TID NGT Last administered on 12:26; Admin Dose 300 MG; Start 10/27/16 at 21:00 Amylase/Lipase/ Protease (CREON ([id number])) 3 cap Q6 NGT Last administered on 10/30/16 12:23; Admin Dose 3 CAP; Start 10/29/16 at 13:00 Escitalopram Oxalate (Lexapro) 10 mg QHS NGT ; Start 10/30/16 at 21:00 Lorazepam (Ativan) 0.5 mg Q6H PRN IV ANXIETY Last administered on 10/30/16 09: 35; Admin Dose 0.5 MG; Start 10/30/16 at 10:30 SHAMA LOPEZ MD Oct 30, 2016 14:26
[2016-10-30] MEDS ORDERED: WARFARIN 2.5 MG TAB NGT ONE (14:30)
--- NOTE | 2016-10-30 18:52 | CONS ---
Date/Time of Note Date/Time of Note DATE: 10/30/16 TIME: 18:41 Assessment/Plan Assessment/Plan Chief Complaint/Hosp Course 1. Acute Renal Failure due to ATN , she is oliguric . She had 2 hours of DUF yesterday . She continues to have edema . Will order DUF tomorrow . 2. ALOC , she continues to be very weak and lethargic , I discussed with nurse about using lorazepam sparingly . 3. liver enzyme elevation due to anoxia , enzymes are decreasing . 4. CHF , she continues to have lung congestion and edema . 5. hypocalcemia/hypoalbuminemia , calcium is higher 6. anemia , she has not had any recent GI bleeding . 7. peripheral vascular disease . 8. respiratory failure , off ventilator . 9 dysphagia , she is on NG tube feeding . 10. she is now on 3 anticoagulants . Will need review by cardiology . Problems: Consultation Date/Type/Reason Admit Date/Time Sep 20, 2016 at 19:21 Initial Consult Date 09/23/16 Type of Consultation: Endovascular Cardiology Referring Provider: ZANDRA ROBISON MD, [facility] 24 HR Interval Summary Free Text/Dictation she is very lethargic today . she does rouse to verbal stimuli and was more awake earlier . Exam/Review of Systems Vital Signs Vitals Vital Signs Date Time Temp Pulse Resp B/P Pulse Ox O2 Delivery O2 Flow Rate FiO2 10/30/16 14:03 86 16 Nasal Cannula 2.0 10/30/16 08:20 95/58 10/30/16 08:03 97.6 98 Intake and Output 10/29/16 10/29/16 10/30/16 15:00 23:00 07:00 Intake Total 1300 ml Output Total 2550 ml Balance -1250 ml Exam she has flank edema Constitutional: frail, obese Respiratory: clear to auscultation, diminished breath sounds Cardiovascular: regular rate and rhythm Gastrointestinal: soft Extremities: edema Results Result Diagram: 10/29/16 1630 10/30/16 0527 Results 24 hrs Laboratory Tests Test 10/29/16 21:13 10/30/16 00:21 10/30/16 04:28 10/30/16 05:00 Bedside Glucose 125 134 123 Prothrombin Time 25.4 #H Prothrombin Time Ratio 2.0 INR International Normalized Ratio 2.28 Test 10/30/16 05:27 10/30/16 08:18 10/30/16 12:06 10/30/16 17:34 Sodium Level 137 Potassium Level 3.6 Chloride Level 100 Carbon Dioxide Level 28 Anion Gap 13 Blood Urea Nitrogen 47 #H Creatinine 1.81 H Glucose Level 109 # Calcium Level 8.4 Bedside Glucose 98 92 99 Medications Medications Current Medications Acetaminophen (Tylenol Liquid) 650 mg Q4H PRN NGT PAIN AND OR ELEVATED TEMP Last administered on 09/27/16 05:14; Admin Dose 650 MG; Start 09/21/16 at 02:00 Eye Lubricant (Artificial Tears Oph) 2 drop QID BOTH EYES Last administered on 10/30/16 17:55; Admin Dose 2 DROP; Start 09/21/16 at 09:00 Atorvastatin Calcium (Lipitor) 80 mg HS NGT Last administered on 10/29/16 21: 01; Admin Dose 80 MG; Start 09/22/16 at 21:00 Pantoprazole (Protonix Iv) 40 mg AM IV Last administered on 10/30/16 08:46; Admin Dose 40 MG; Start 09/26/16 at 09:00 Epoetin Raj (Epogen (Esrd)) 10,000 units TuThSa@17 SC Last administered on 17:12; Admin Dose 10,000 UNITS; Start 09/26/16 at 17:00 IV Flush (NS 10 ml) 10 ml PRN PRN IV IV PROTOCOL; Start 09/26/16 at 17:30 Morphine Sulfate (morphine) 2 mg Q4H PRN IV PAIN Last administered on 12:10; Admin Dose 2 MG; Start 09/28/16 at 16:00 Miscellaneous Information 1 ea NOTE XX ; Start 10/09/16 at 20:30 Dextrose (D50w Syringe) 25 ml Q15M PRN IV DECREASED GLUCOSE Last administered on 10/14/16 00:31; Admin Dose 25 ML; Start 10/09/16 at 20:30 Glucagon (Glucagen) 1 mg Q15M PRN IM DECREASED GLUCOSE; Start 10/09/16 at 20:30 Glucose (Glutose) 15 gm Q15M PRN BUCCAL DECREASED GLUCOSE; Start 10/09/16 at 20: 30 Calcium Carbonate (Tums) 500 mg TID NGT Last administered on 10/30/16 12:26; Admin Dose 500 MG; Start 10/15/16 at 21:00 Insulin Glargine (Lantus) 26 unit DAILY@08 SC Last administered on 10/30/16 08 :31; Admin Dose 26 UNIT; Start 10/17/16 at 08:00 Insulin Aspart (Novolog Insulin Pen) NOVOLOG *MODERATE* ALGORI... Q4 SC Last administered on 10/29/16 13:14; Admin Dose 2 UNIT; Start 10/16/16 at 13:00 Metoprolol Tartrate (Lopressor) 25 mg BID PO Last administered on 10/29/16 21: 03; Admin Dose 25 MG; Start 10/20/16 at 21:00 Lactulose (Enulose) 20 gm BID PRN PO CONSTIPATION Last administered on 12:57; Admin Dose 20 GM; Start 10/23/16 at 10:30 Lactobacillus Acidophilus (Florajen3 Capsule) 1 each TID PO Last administered on 10/30/16 12:26; Admin Dose 1 EACH; Start 10/25/16 at 13:30 Ferrous Sulfate (Feosol Liquid Cup) 300 mg TID NGT Last administered on 12:26; Admin Dose 300 MG; Start 10/27/16 at 21:00 Amylase/Lipase/ Protease (CREON ([id number])) 3 cap Q6 NGT Last administered on 10/30/16 17:50; Admin Dose 3 CAP; Start 10/29/16 at 13:00 Escitalopram Oxalate (Lexapro) 10 mg QHS NGT ; Start 10/30/16 at 21:00 Lorazepam (Ativan) 0.5 mg Q6H PRN IV ANXIETY Last administered on 10/30/16 09: 35; Admin Dose 0.5 MG; Start 10/30/16 at 10:30 Guaifenesin (Mucinex) 600 mg BID PO ; Start 10/30/16 at 21:00 DAMIR MARTINEZ MD Oct 30, 2016 18:52
[2016-10-30 20:25] VITALS: BP 110/56; RESP 20
[2016-10-30] MEDS ORDERED: GUAIFENESIN LA 600 MG TABSR PO SCH (21:00)
[2016-10-30] MEDS: ATORVASTATIN 80 MG TAB NGT SCH (21:01)
[2016-10-30] MEDS: ESCITALOPRAM 10 MG TAB NGT SCH (21:02)
[2016-10-31] VITALS (11 sets, daily range): BP systolic 96–126; BP diastolic 45–68; PULSE 79–86; RESP 15–18
[2016-10-31] MEDS: INSULIN ASPART [NOVOLOG] 3 ML PEN SC SCH ×6 (02:00→20:58)
[2016-10-31] MEDS: IPRATROPIUM (NEB) 0.5 MG/2.5 ML AMP HHN SCH ×4 (02:04→19:49)
[2016-10-31] MEDS: LEVALBUTEROL (NEB) 1.25 MG/0.5 ML AMP HHN SCH ×4 (02:04→19:49)
[2016-10-31] MEDS: ACETYLCYSTEINE 20% 4 ML VIAL NEB SCH ×4 (02:04→19:49)
[2016-10-31] MEDS: DEXTROSE 50% 50 ML SYRINGE IV PRN (02:34)
[2016-10-31] MEDS: CREON (12k-38k-60k) 1 CAP NGT SCH ×4 (05:16→23:53)
[2016-10-31 07:00] LABS: ADD SCAN DIFF NO
[2016-10-31 07:12] LABS: ABNORMAL IP MESSAGE 1; BASOPHILS % 0.2 % (0.0-2.0); EOSINOPHILS # 0.1 10^3/ul (0.0-0.5); EOSINOPHILS % 0.9 % (0.0-7.0); HEMATOCRIT 28.7 % (37.0-47.0); HEMOGLOBIN 8.2 g/dl (12.0-16.0); LYMPHOCYTES # 1.4 10^3/ul (0.8-2.9); LYMPHOCYTES % 13.5 % (15.0-51.0); MEAN CORPUSCULAR HEMOGLOBIN 29.9 pg (29.0-33.0); MEAN CORPUSCULAR HGB CONC 28.6 g/dl (32.0-37.0); MEAN CORPUSCULAR VOLUME 104.7 fl (82.0-101.0); MEAN PLATELET VOLUME 10.7 fl (7.4-10.4); MONOCYTE # 0.8 10^3/ul (0.3-0.9); MONOCYTES % 7.7 % (0.0-11.0); NEUTROPHILS % 75.6 % (39.0-77.0); NUCLEATED RED BLOOD CELLS # 0.1 10^3/ul (0.0-0.0); NUCLEATED RED BLOOD CELLS% 0.6 /100WBC (0.0-0.0); PLATELET COUNT 240 10^3/UL (140-415); RED BLOOD COUNT 2.74 10^6/ul (4.20-5.40); RED CELL DISTRIBUTION WIDTH 24.8 % (11.5-14.5); WHITE BLOOD COUNT 10.5 10^3/ul (4.8-10.8)
[2016-10-31 07:25] LABS: INR 2.81; PT RATIO 2.3
[2016-10-31 07:29] LABS: ALBUMIN 2.4 g/dl (3.3-4.9); POTASSIUM 3.8 mmol/L (3.5-5.1)
[2016-10-31 07:31] LABS: CREATININE 2.22 mg/dl (0.44-1.00)
[2016-10-31 07:32] LABS: ALBUMIN/GLOBULIN RATIO 0.75; BILIRUBIN,INDIRECT 0.2 mg/dl (0-1.1); BILIRUBIN,TOTAL 0.2 mg/dl (0.2-1.3); CALCIUM 8.5 mg/dl (8.4-10.2); TOTAL PROTEIN 5.6 g/dl (6.1-8.1)
[2016-10-31] MEDS: METOPROLOL 25 MG TAB PO SCH ×2 (09:00→20:55)
[2016-10-31] MEDS: LORAZEPAM 2 MG INJ IV PRN (09:34)
[2016-10-31] MEDS: FERROUS SULFATE 60 MG/ML 5ML CUP NGT SCH ×3 (09:38→20:50)
[2016-10-31] MEDS: CALCIUM CARBONATE 500 MG CHEW TAB NGT SCH ×3 (09:38→20:50)
[2016-10-31] MEDS: PANTOPRAZOLE 40 MG INJ IV SCH (09:38)
[2016-10-31] MEDS: ARTIFICIAL TEARS 15 ML OPH BOTH EYES SCH ×4 (09:38→20:49)
[2016-10-31] MEDS: INSULIN GLARGINE [LANtus] 3 ML PEN SC SCH (09:54)
[2016-10-31] MEDS: L ACIDOPHIL/B LACTIS/B LONGUM CAPSULE PO SCH ×3 (09:58→20:50)
--- NOTE | 2016-10-31 10:08 | PN ---
Date/Time of Note Date/Time of Note DATE: 10/31/16 TIME: 10:05 Assessment/Plan VTE Prophylaxis VTE Prophylaxis Intervention: other Lines/Catheters IV Catheter Type (from Nrs): Permacath Urinary Cath still in place: Yes Reason Cath still needed: urinary retention Assessment/Plan Assessment/Plan 1. Acute renal failure with vol overload, will try to DUF today and will eval for hd tomm 2. Swallowing is problematic, swallow eval planned. 3. Anemia is stable Subjective 24 Hr Interval Summary Subjective hx not possible: other (somnolent) Exam/Review of Systems Vital Signs Vitals Vital Signs Date Time Temp Pulse Resp B/P Pulse Ox O2 Delivery O2 Flow Rate FiO2 10/31/16 08:52 86 16 97 Nasal Cannula 2.0 10/31/16 07:38 98.4 96/50 Intake and Output 10/30/16 10/30/16 10/31/16 15:00 23:00 07:00 Intake Total 0 ml Output Total 200 ml 100 ml 50 ml Balance -200 ml -100 ml -50 ml Exam Neck: No jvd Respiratory: diminished breath sounds Cardiovascular: regular rate and rhythm Gastrointestinal: soft Extremities: edema (mild edema) Results Result Diagram: 10/31/16 0600 10/31/16 0600 Results 24 hrs Laboratory Tests Test 10/30/16 12:06 10/30/16 17:34 10/30/16 20:56 10/31/16 02:54 Bedside Glucose 92 99 81 114 Test 10/31/16 05:02 10/31/16 06:00 10/31/16 09:33 Bedside Glucose 110 83 White Blood Count 10.5 Red Blood Count 2.74 L Hemoglobin 8.2 L Hematocrit 28.7 L Mean Corpuscular Volume 104.7 H Mean Corpuscular Hemoglobin 29.9 Mean Corpuscular Hemoglobin Concent 28.6 L Red Cell Distribution Width 24.8 H Platelet Count 240 # Mean Platelet Volume 10.7 H Neutrophils % 75.6 Lymphocytes % 13.5 L Monocytes % 7.7 Eosinophils % 0.9 Basophils % 0.2 Nucleated Red Blood Cells % 0.6 H Neutrophils # 8.0 H Lymphocytes # 1.4 Monocytes # 0.8 Eosinophils # 0.1 Basophils # 0.0 Nucleated Red Blood Cells # 0.1 H Prothrombin Time 30.0 H Prothrombin Time Ratio 2.3 INR International Normalized Ratio 2.81 Sodium Level 136 Potassium Level 3.8 Chloride Level 97 Carbon Dioxide Level 29 Anion Gap 14 Blood Urea Nitrogen 56 H Creatinine 2.22 H Glucose Level 79 Calcium Level 8.5 Total Bilirubin 0.2 Direct Bilirubin 0.00 Indirect Bilirubin 0.2 Aspartate Amino Transf (AST/SGOT) 59 H Alanine Aminotransferase (ALT/SGPT) 65 Alkaline Phosphatase 189 H Total Protein 5.6 L Albumin 2.4 L Globulin 3.20 Albumin/Globulin Ratio 0.75 Medications Medications Current Medications Acetaminophen (Tylenol Liquid) 650 mg Q4H PRN NGT PAIN AND OR ELEVATED TEMP Last administered on 09/27/16 05:14; Admin Dose 650 MG; Start 09/21/16 at 02:00 Eye Lubricant (Artificial Tears Oph) 2 drop QID BOTH EYES Last administered on 10/31/16 09:38; Admin Dose 2 DROP; Start 09/21/16 at 09:00 Atorvastatin Calcium (Lipitor) 80 mg HS NGT Last administered on 10/30/16 21: 01; Admin Dose 80 MG; Start 09/22/16 at 21:00 Pantoprazole (Protonix Iv) 40 mg AM IV Last administered on 10/31/16 09:38; Admin Dose 40 MG; Start 09/26/16 at 09:00 Epoetin Raj (Epogen (Esrd)) 10,000 units TuThSa@17 SC Last administered on 17:12; Admin Dose 10,000 UNITS; Start 09/26/16 at 17:00 IV Flush (NS 10 ml) 10 ml PRN PRN IV IV PROTOCOL; Start 09/26/16 at 17:30 Morphine Sulfate (morphine) 2 mg Q4H PRN IV PAIN Last administered on 12:10; Admin Dose 2 MG; Start 09/28/16 at 16:00 Miscellaneous Information 1 ea NOTE XX ; Start 10/09/16 at 20:30 Dextrose (D50w Syringe) 25 ml Q15M PRN IV DECREASED GLUCOSE Last administered on 10/31/16 02:34; Admin Dose 25 ML; Start 10/09/16 at 20:30 Glucagon (Glucagen) 1 mg Q15M PRN IM DECREASED GLUCOSE; Start 10/09/16 at 20:30 Glucose (Glutose) 15 gm Q15M PRN BUCCAL DECREASED GLUCOSE; Start 10/09/16 at 20: 30 Calcium Carbonate (Tums) 500 mg TID NGT Last administered on 10/31/16 09:38; Admin Dose 500 MG; Start 10/15/16 at 21:00 Insulin Glargine (Lantus) 26 unit DAILY@08 SC Last administered on 10/31/16 09 :54; Admin Dose 26 UNIT; Start 10/17/16 at 08:00 Insulin Aspart (Novolog Insulin Pen) NOVOLOG *MODERATE* ALGORI... Q4 SC Last administered on 10/29/16 13:14; Admin Dose 2 UNIT; Start 10/16/16 at 13:00 Metoprolol Tartrate (Lopressor) 25 mg BID PO Last administered on 10/30/16 21: 02; Admin Dose 25 MG; Start 10/20/16 at 21:00 Lactulose (Enulose) 20 gm BID PRN PO CONSTIPATION Last administered on 12:57; Admin Dose 20 GM; Start 10/23/16 at 10:30 Lactobacillus Acidophilus (Florajen3 Capsule) 1 each TID PO Last administered on 10/31/16 09:58; Admin Dose 1 EACH; Start 10/25/16 at 13:30 Ferrous Sulfate (Feosol Liquid Cup) 300 mg TID NGT Last administered on 09:38; Admin Dose 300 MG; Start 10/27/16 at 21:00 Amylase/Lipase/ Protease (CREON ([id number])) 3 cap Q6 NGT Last administered on 10/31/16 05:16; Admin Dose 3 CAP; Start 10/29/16 at 13:00 Escitalopram Oxalate (Lexapro) 10 mg QHS NGT Last administered on 10/30/16 21: 02; Admin Dose 10 MG; Start 10/30/16 at 21:00 Lorazepam (Ativan) 0.5 mg Q6H PRN IV ANXIETY Last administered on 10/31/16 09: 34; Admin Dose 0.5 MG; Start 10/30/16 at 10:30 Guaifenesin (Mucinex) 600 mg BID PO Last administered on 10/30/16 21:02; Admin Dose 600 MG; Start 10/30/16 at 21:00; Status Future Hold FAZAL LAFLEUR MD Oct 31, 2016 10:08
--- NOTE | 2016-10-31 14:55 | PN ---
Date/Time of Note Date/Time of Note DATE: 10/31/16 TIME: 14:50 Assessment/Plan VTE Prophylaxis VTE Prophylaxis Intervention: contraindicated Lines/Catheters IV Catheter Type (from Nrsg): perma cath Central line still needed: No Urinary Cath still in place: Yes Reason Cath still needed: terminal illness/intractable pain Assessment/Plan Assessment/Plan 1. cad/ pad 2. arf/ edema/ anemia-- very slow recovery 3. s/p pneumonia/ effusion/ with weak coughs--another slow recovery 4. dm 5. depression/ anxiety 6. musc weak/ dysphagia --- GI consult for PEG tube ---per cards ---per renal ---hold all anticoags today ---aggressive PT/ OT/ other supportive cares Subjective 24 Hr Interval Summary Free Text/Dictation awake, failed swallow test, weak coughs only Exam/Review of Systems Vital Signs Vitals Vital Signs Date Time Temp Pulse Resp B/P Pulse Ox O2 Delivery O2 Flow Rate FiO2 10/31/16 12:15 81 10/31/16 12:15 18 10/31/16 08:52 97 Nasal Cannula 2.0 10/31/16 07:38 98.4 96/50 Intake and Output 10/30/16 10/30/16 10/31/16 15:00 23:00 07:00 Intake Total 0 ml Output Total 200 ml 100 ml 50 ml Balance -200 ml -100 ml -50 ml Exam obese+ rt ue edema+1, toes blue black+ ngt in place, clean weak, very wet coughs, dec bs rr diast m+ Results Result Diagram: 10/31/16 0600 10/31/16 0600 Results 24 hrs Laboratory Tests Test 10/30/16 17:34 10/30/16 20:56 10/31/16 02:54 10/31/16 05:02 Bedside Glucose 99 81 114 110 Test 10/31/16 06:00 10/31/16 09:33 10/31/16 13:08 White Blood Count 10.5 Red Blood Count 2.74 L Hemoglobin 8.2 L Hematocrit 28.7 L Mean Corpuscular Volume 104.7 H Mean Corpuscular Hemoglobin 29.9 Mean Corpuscular Hemoglobin Concent 28.6 L Red Cell Distribution Width 24.8 H Platelet Count 240 # Mean Platelet Volume 10.7 H Neutrophils % 75.6 Lymphocytes % 13.5 L Monocytes % 7.7 Eosinophils % 0.9 Basophils % 0.2 Nucleated Red Blood Cells % 0.6 H Neutrophils # 8.0 H Lymphocytes # 1.4 Monocytes # 0.8 Eosinophils # 0.1 Basophils # 0.0 Nucleated Red Blood Cells # 0.1 H Prothrombin Time 30.0 H Prothrombin Time Ratio 2.3 INR International Normalized Ratio 2.81 Sodium Level 136 Potassium Level 3.8 Chloride Level 97 Carbon Dioxide Level 29 Anion Gap 14 Blood Urea Nitrogen 56 H Creatinine 2.22 H Glucose Level 79 Calcium Level 8.5 Total Bilirubin 0.2 Direct Bilirubin 0.00 Indirect Bilirubin 0.2 Aspartate Amino Transf (AST/SGOT) 59 H Alanine Aminotransferase (ALT/SGPT) 65 Alkaline Phosphatase 189 H Total Protein 5.6 L Albumin 2.4 L Globulin 3.20 Albumin/Globulin Ratio 0.75 Bedside Glucose 83 100 Medications Medications Current Medications Acetaminophen (Tylenol Liquid) 650 mg Q4H PRN NGT PAIN AND OR ELEVATED TEMP Last administered on 09/27/16 05:14; Admin Dose 650 MG; Start 09/21/16 at 02:00 Eye Lubricant (Artificial Tears Oph) 2 drop QID BOTH EYES Last administered on 10/31/16 09:38; Admin Dose 2 DROP; Start 09/21/16 at 09:00 Atorvastatin Calcium (Lipitor) 80 mg HS NGT Last administered on 10/30/16 21: 01; Admin Dose 80 MG; Start 09/22/16 at 21:00 Pantoprazole (Protonix Iv) 40 mg AM IV Last administered on 10/31/16 09:38; Admin Dose 40 MG; Start 09/26/16 at 09:00 Epoetin Raj (Epogen (Esrd)) 10,000 units TuThSa@17 SC Last administered on 17:12; Admin Dose 10,000 UNITS; Start 09/26/16 at 17:00 IV Flush (NS 10 ml) 10 ml PRN PRN IV IV PROTOCOL; Start 09/26/16 at 17:30 Morphine Sulfate (morphine) 2 mg Q4H PRN IV PAIN Last administered on 12:10; Admin Dose 2 MG; Start 09/28/16 at 16:00 Miscellaneous Information 1 ea NOTE XX ; Start 10/09/16 at 20:30 Dextrose (D50w Syringe) 25 ml Q15M PRN IV DECREASED GLUCOSE Last administered on 10/31/16 02:34; Admin Dose 25 ML; Start 10/09/16 at 20:30 Glucagon (Glucagen) 1 mg Q15M PRN IM DECREASED GLUCOSE; Start 10/09/16 at 20:30 Glucose (Glutose) 15 gm Q15M PRN BUCCAL DECREASED GLUCOSE; Start 10/09/16 at 20: 30 Calcium Carbonate (Tums) 500 mg TID NGT Last administered on 10/31/16 13:10; Admin Dose 500 MG; Start 10/15/16 at 21:00 Insulin Glargine (Lantus) 26 unit DAILY@08 SC Last administered on 10/31/16 09 :54; Admin Dose 26 UNIT; Start 10/17/16 at 08:00 Insulin Aspart (Novolog Insulin Pen) NOVOLOG *MODERATE* ALGORI... Q4 SC Last administered on 10/29/16 13:14; Admin Dose 2 UNIT; Start 10/16/16 at 13:00 Metoprolol Tartrate (Lopressor) 25 mg BID PO Last administered on 10/30/16 21: 02; Admin Dose 25 MG; Start 10/20/16 at 21:00 Lactulose (Enulose) 20 gm BID PRN PO CONSTIPATION Last administered on 12:57; Admin Dose 20 GM; Start 10/23/16 at 10:30 Lactobacillus Acidophilus (Florajen3 Capsule) 1 each TID PO Last administered on 10/31/16 13:10; Admin Dose 1 EACH; Start 10/25/16 at 13:30 Ferrous Sulfate (Feosol Liquid Cup) 300 mg TID NGT Last administered on 13:10; Admin Dose 300 MG; Start 10/27/16 at 21:00 Amylase/Lipase/ Protease (CREON ([id number])) 3 cap Q6 NGT Last administered on 10/31/16 13:10; Admin Dose 3 CAP; Start 10/29/16 at 13:00 Escitalopram Oxalate (Lexapro) 10 mg QHS NGT Last administered on 10/30/16 21: 02; Admin Dose 10 MG; Start 10/30/16 at 21:00 Lorazepam (Ativan) 0.5 mg Q6H PRN IV ANXIETY Last administered on 10/31/16 09: 34; Admin Dose 0.5 MG; Start 10/30/16 at 10:30 Guaifenesin (Mucinex) 600 mg BID PO Last administered on 10/30/16 21:02; Admin Dose 600 MG; Start 10/30/16 at 21:00; Status Future Hold SHAMA LOPEZ MD Oct 31, 2016 14:55
[2016-10-31] MEDS: EPOETIN 10000 UNITS/1 ML INJ (ESRD) SC SCH (18:24)
--- NOTE | 2016-10-31 19:49 | RADRPT ---
Echocardiogram Report Patient Name: JANIA TRUONG Gender: Female Date: 1945 Study Date: 31-Oct-2016 Prop Drawer: [facility] Location: 603 Ref. Physician: DAMIR MARTINEZ Quality: Adequate Procedures: Transthoracic echocardiogram with complete 2D, M-Mode, and doppler examination. Indications: Congential Heart Disease. 2D/M Mode Doppler Measurement Value Normal Ranges Measurement Value Normal Ranges LVIDd 2D 3.8 3.5 - 5.6 cm TOM Vmax 1.6 cm2 LVIDs 2D 2.5 2.1 - 4.1 cm AV Peak Jose M 1.5 m/sec FS 2D 35.8 % AV Peak PG 9.0 mmHg LVPWd 2D 0.9 0.6 - 1.1 cm LVOT Peak Jose M 1.0 m/sec IVSd 2D 0.9 0.6 - 1.1 cm LVOT Peak PG 4.0 mmHg IVS/LVPW 2D 1.0 MV E Peak Jose M 1.1 m/sec AoR Diam 2D 2.0 2.0 - 3.7 cm MV A Peak Jose M 1.1 m/sec LA/Ao 2D 1 0 - 1 MV E/A 1.0 EDV 2D 56.2 cm3 MV Decel Time 180 msec ESV 2D 14.9 cm3 MV E/A 1.0 LA Dimen 2D 2.7 2.3 - 4.0 cm TR Peak Jose M 2.0 m/sec LVOT Diam 1.8 cm TR Peak PG 16.0 mmHg LVOT Area 2.5 cm2 RVSP 19.0 mmHg Findings Left Ventricle: Normal left ventricular systolic function. Normal left ventricular cavity size. Normal left ventricular wall thickness. Ejection fraction is visually estimated at 65 %. Right Ventricle: Normal right ventricular size. Normal right ventricular systolic function. Left Atrium: The left atrium is normal in size. Right Atrium: The right atrium is normal in size. Mitral Valve: Mild mitral leaflet calcification. Mild mitral annular calcification. Mild mitral valve regurgitation. Aortic Valve: Normal appearance of the aortic valve. No significant aortic stenosis or insufficiency. Tricuspid Valve: Normal appearance and function of the tricuspid valve with trace physiologic regurgitation. Normal right ventricular systolic pressure. Estimated peak PA systolic pressure 19 mmHg. Pulmonic Valve: Normal pulmonic valve appearance. Pericardium: Normal pericardium with no significant pericardial effusion. Aorta: Normal aortic root. IVC: Normal size and normal respiratory collapse consistent with normal right atrial pressure. Conclusions 1.Normal left ventricular systolic function. Normal left ventricular cavity size. Normal left ventricular wall thickness. Ejection fraction is visually estimated at 65 %. 2.Mild mitral leaflet calcification. Mild mitral annular calcification. Mild mitral valve regurgitation. 3.Normal appearance of the aortic valve. No significant aortic stenosis or insufficiency. 4.Normal appearance and function of the tricuspid valve with trace physiologic regurgitation. Normal right ventricular systolic pressure. Estimated peak PA systolic pressure 19 mmHg. Electronically Signed By: Freeman Lima 31-Oct-2016 19:48:18 -0700 Patient Name: JANIA TRUONG Study Date: 31-Oct-2016 [id number]
--- NOTE | 2016-10-31 19:58 | CONS ---
Date/Time of Note Date/Time of Note DATE: 10/31/16 TIME: 19:57 Consult Date/Type/Reason Admit Date/Time Sep 20, 2016 at 19:21 Initial Consult Date 10/22/16 Type of Consultation: Endovascular Cardiology Ordering Provider: ZANDRA ROBISON MD, [facility] Objective Vital Signs Date Time Temp Pulse Resp B/P Pulse Ox O2 Delivery O2 Flow Rate FiO2 10/31/16 19:19 98.6 91 18 104/53 97 10/31/16 18:10 2.0 10/31/16 08:52 Nasal Cannula Intake and Output 10/30/16 10/30/16 10/31/16 15:00 23:00 07:00 Intake Total 0 ml Output Total 200 ml 100 ml 50 ml Balance -200 ml -100 ml -50 ml Results/Medications Result Diagram: 10/31/16 0600 10/31/16 0600 Results 24 hrs Laboratory Tests Test 10/30/16 20:56 10/31/16 02:54 10/31/16 05:02 10/31/16 06:00 Bedside Glucose 81 114 110 White Blood Count 10.5 Red Blood Count 2.74 L Hemoglobin 8.2 L Hematocrit 28.7 L Mean Corpuscular Volume 104.7 H Mean Corpuscular Hemoglobin 29.9 Mean Corpuscular Hemoglobin Concent 28.6 L Red Cell Distribution Width 24.8 H Platelet Count 240 # Mean Platelet Volume 10.7 H Neutrophils % 75.6 Lymphocytes % 13.5 L Monocytes % 7.7 Eosinophils % 0.9 Basophils % 0.2 Nucleated Red Blood Cells % 0.6 H Neutrophils # 8.0 H Lymphocytes # 1.4 Monocytes # 0.8 Eosinophils # 0.1 Basophils # 0.0 Nucleated Red Blood Cells # 0.1 H Prothrombin Time 30.0 H Prothrombin Time Ratio 2.3 INR International Normalized Ratio 2.81 Sodium Level 136 Potassium Level 3.8 Chloride Level 97 Carbon Dioxide Level 29 Anion Gap 14 Blood Urea Nitrogen 56 H Creatinine 2.22 H Glucose Level 79 Calcium Level 8.5 Total Bilirubin 0.2 Direct Bilirubin 0.00 Indirect Bilirubin 0.2 Aspartate Amino Transf (AST/SGOT) 59 H Alanine Aminotransferase (ALT/SGPT) 65 Alkaline Phosphatase 189 H Total Protein 5.6 L Albumin 2.4 L Globulin 3.20 Albumin/Globulin Ratio 0.75 Test 10/31/16 09:33 4/27/17 13:08 10/31/16 18:36 Bedside Glucose 83 100 132 Medications Current Medications Acetaminophen (Tylenol Liquid) 650 mg Q4H PRN NGT PAIN AND OR ELEVATED TEMP Last administered on 09/27/16 05:14; Admin Dose 650 MG; Start 09/21/16 at 02:00 Eye Lubricant (Artificial Tears Oph) 2 drop QID BOTH EYES Last administered on 10/31/16 09:38; Admin Dose 2 DROP; Start 09/21/16 at 09:00 Atorvastatin Calcium (Lipitor) 80 mg HS NGT Last administered on 10/30/16 21: 01; Admin Dose 80 MG; Start 09/22/16 at 21:00 Pantoprazole (Protonix Iv) 40 mg AM IV Last administered on 10/31/16 09:38; Admin Dose 40 MG; Start 09/26/16 at 09:00 Epoetin Raj (Epogen (Esrd)) 10,000 units TuThSa@17 SC Last administered on 18:24; Admin Dose 10,000 UNITS; Start 09/26/16 at 17:00 IV Flush (NS 10 ml) 10 ml PRN PRN IV IV PROTOCOL; Start 09/26/16 at 17:30 Morphine Sulfate (morphine) 2 mg Q4H PRN IV PAIN Last administered on 12:10; Admin Dose 2 MG; Start 09/28/16 at 16:00 Miscellaneous Information 1 ea NOTE XX ; Start 10/09/16 at 20:30 Dextrose (D50w Syringe) 25 ml Q15M PRN IV DECREASED GLUCOSE Last administered on 10/31/16 02:34; Admin Dose 25 ML; Start 10/09/16 at 20:30 Glucagon (Glucagen) 1 mg Q15M PRN IM DECREASED GLUCOSE; Start 10/09/16 at 20:30 Glucose (Glutose) 15 gm Q15M PRN BUCCAL DECREASED GLUCOSE; Start 10/09/16 at 20: 30 Calcium Carbonate (Tums) 500 mg TID NGT Last administered on 10/31/16 13:10; Admin Dose 500 MG; Start 10/15/16 at 21:00 Insulin Glargine (Lantus) 26 unit DAILY@08 SC Last administered on 10/31/16 09 :54; Admin Dose 26 UNIT; Start 10/17/16 at 08:00 Insulin Aspart (Novolog Insulin Pen) NOVOLOG *MODERATE* ALGORI... Q4 SC Last administered on 10/29/16 13:14; Admin Dose 2 UNIT; Start 10/16/16 at 13:00 Metoprolol Tartrate (Lopressor) 25 mg BID PO Last administered on 10/30/16 21: 02; Admin Dose 25 MG; Start 10/20/16 at 21:00 Lactulose (Enulose) 20 gm BID PRN PO CONSTIPATION Last administered on 12:57; Admin Dose 20 GM; Start 10/23/16 at 10:30 Lactobacillus Acidophilus (Florajen3 Capsule) 1 each TID PO Last administered on 10/31/16 13:10; Admin Dose 1 EACH; Start 10/25/16 at 13:30 Ferrous Sulfate (Feosol Liquid Cup) 300 mg TID NGT Last administered on 13:10; Admin Dose 300 MG; Start 10/27/16 at 21:00 Amylase/Lipase/ Protease (CREON ([id number])) 3 cap Q6 NGT Last administered on 10/31/16 18:23; Admin Dose 3 CAP; Start 10/29/16 at 13:00 Escitalopram Oxalate (Lexapro) 10 mg QHS NGT Last administered on 10/30/16 21: 02; Admin Dose 10 MG; Start 10/30/16 at 21:00 Lorazepam (Ativan) 0.5 mg Q6H PRN IV ANXIETY Last administered on 10/31/16 09: 34; Admin Dose 0.5 MG; Start 10/30/16 at 10:30 Guaifenesin (Mucinex) 600 mg BID PO Last administered on 10/30/16 21:02; Admin Dose 600 MG; Start 10/30/16 at 21:00; Status Future Hold Guaifenesin (Robitussin Liquid Cup) 200 mg Q6 PO ; Start 11/01/16 at 00:00 Latanoprost (Xalatan) 1 drop HS BOTH EYES ; Start 10/31/16 at 21:00 Dorzolamide/ Timolol (Cosopt) 1 drop BID BOTH EYES ; Start 4/27/17 at 21:00 Assessment/Plan Chief Complaint/Hosp Course Patient is 71 year old F with PMH of HTn, HLD, 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 Patient was seen and examined at bedside. She has NGT placed so her speech was not that clear. she does feel overall weak but stable. denies any CP or SOB. she has resting leg pain on and off according to her but there is clear gangrene on toes. its not dry yet but in the process. Problems: Additional Assessment/Plan Pt remains the same gangrene of toe stable Echo with LVEF 65%. can use some aggresive diuresis if needed. VIRGINIE JUARES MD Oct 31, 2016 19:58
[2016-10-31] MEDS: LATANOPROST 0.005% 2.5 ML OPH BOTH EYES SCH (20:50)
[2016-10-31] MEDS: ESCITALOPRAM 10 MG TAB NGT SCH (20:50)
[2016-10-31] MEDS: ATORVASTATIN 80 MG TAB NGT SCH (20:50)
[2016-10-31] MEDS: DORZOLAMIDE/TIMOLOL 10 ML OPH BOTH EYES SCH (20:50)
[2016-10-31] MEDS: GUAIFENESIN 20 MG/ML 5ML CUP PO SCH (23:53)
[2016-11-01] MEDS: ACETYLCYSTEINE 20% 4 ML VIAL NEB SCH ×4 (01:43→19:24)
[2016-11-01] MEDS: IPRATROPIUM (NEB) 0.5 MG/2.5 ML AMP HHN SCH ×4 (01:43→19:24)
[2016-11-01] MEDS: LEVALBUTEROL (NEB) 1.25 MG/0.5 ML AMP HHN SCH ×4 (01:43→19:24)
[2016-11-01] MEDS: INSULIN ASPART [NOVOLOG] 3 ML PEN SC SCH ×6 (02:30→21:00)
[2016-11-01] MEDS: GUAIFENESIN 20 MG/ML 5ML CUP PO SCH ×3 (05:08→18:58)
[2016-11-01] MEDS: CREON (12k-38k-60k) 1 CAP NGT SCH ×3 (05:09→18:58)
[2016-11-01 05:50] LABS: ADD SCAN DIFF NO
[2016-11-01 06:00] LABS: ABNORMAL IP MESSAGE 1; BASOPHILS % 0.3 % (0.0-2.0); EOSINOPHILS # 0.1 10^3/ul (0.0-0.5); EOSINOPHILS % 0.8 % (0.0-7.0); HEMATOCRIT 29.1 % (37.0-47.0); HEMOGLOBIN 8.2 g/dl (12.0-16.0); LYMPHOCYTES # 1.5 10^3/ul (0.8-2.9); LYMPHOCYTES % 13.3 % (15.0-51.0); MEAN CORPUSCULAR HEMOGLOBIN 29.1 pg (29.0-33.0); MEAN CORPUSCULAR HGB CONC 28.2 g/dl (32.0-37.0); MEAN CORPUSCULAR VOLUME 103.2 fl (82.0-101.0); MEAN PLATELET VOLUME 10.6 fl (7.4-10.4); MONOCYTE # 0.8 10^3/ul (0.3-0.9); MONOCYTES % 7.6 % (0.0-11.0); NEUTROPHIL # 8.4 10^3/ul (1.6-7.5); NEUTROPHILS % 75.8 % (39.0-77.0); NUCLEATED RED BLOOD CELLS # 0.1 10^3/ul (0.0-0.0); NUCLEATED RED BLOOD CELLS% 0.5 /100WBC (0.0-0.0); PLATELET COUNT 221 10^3/UL (140-415); RED BLOOD COUNT 2.82 10^6/ul (4.20-5.40); RED CELL DISTRIBUTION WIDTH 24.4 % (11.5-14.5); WHITE BLOOD COUNT 11.1 10^3/ul (4.8-10.8)
[2016-11-01 06:06] LABS: INR 2.98; POTASSIUM 4.2 mmol/L (3.5-5.1); PROTIME 31.4 Sec (12.2-14.2); PT RATIO 2.5
[2016-11-01 06:09] LABS: CREATININE 2.51 mg/dl (0.44-1.00)
[2016-11-01 06:10] LABS: CALCIUM 8.4 mg/dl (8.4-10.2)
[2016-11-01 07:34] VITALS: BP 102/55; RESP 16
[2016-11-01] MEDS: METOPROLOL 25 MG TAB PO SCH ×2 (09:00→21:00)
[2016-11-01] MEDS ORDERED: INSULIN GLARGINE [LANtus] 3 ML PEN SC SCH (09:00)
--- NOTE | 2016-11-01 09:25 | PN ---
Date/Time of Note Date/Time of Note DATE: 11/01/16 TIME: 09:23 Assessment/Plan VTE Prophylaxis VTE Prophylaxis Intervention: other Lines/Catheters IV Catheter Type (from Nrs): PERM-A-CATH Urinary Cath still in place: Yes Reason Cath still needed: urinary retention Assessment/Plan Assessment/Plan 1. Acute renal failure without recovery 2. Vol expanded and will HD tomm (1 hr dry) 3. Dysphagia, G tube is planned. Subjective 24 Hr Interval Summary Respiratory: shortness of breath Cardiovascular: No chest pain Gastrointestinal: no complaints Exam/Review of Systems Vital Signs Vitals Vital Signs Date Time Temp Pulse Resp B/P Pulse Ox O2 Delivery O2 Flow Rate FiO2 11/01/16 07:55 2.0 11/01/16 07:55 86 20 97 Nasal Cannula 11/01/16 07:34 98.2 102/55 Intake and Output 10/31/16 10/31/16 11/01/16 15:00 23:00 07:00 Intake Total 300 ml 400 ml Output Total 4800 ml 120 ml Balance -4500 ml 400 ml -120 ml Exam Neck: No jvd Respiratory: clear to auscultation, diminished breath sounds Cardiovascular: regular rate and rhythm Gastrointestinal: soft Extremities: edema (mod sacral edema) Results Result Diagram: 11/01/16 0507 11/01/16 0507 Results 24 hrs Laboratory Tests Test 10/31/16 09:33 10/31/16 13:08 10/31/16 18:36 10/31/16 20:57 Bedside Glucose 83 100 132 125 Test 11/01/16 02:30 11/01/16 05:07 11/01/16 05:08 Bedside Glucose 116 104 White Blood Count 11.1 H Red Blood Count 2.82 L Hemoglobin 8.2 L Hematocrit 29.1 L Mean Corpuscular Volume 103.2 H Mean Corpuscular Hemoglobin 29.1 Mean Corpuscular Hemoglobin Concent 28.2 L Red Cell Distribution Width 24.4 H Platelet Count 221 Mean Platelet Volume 10.6 H Neutrophils % 75.8 Lymphocytes % 13.3 L Monocytes % 7.6 Eosinophils % 0.8 Basophils % 0.3 Nucleated Red Blood Cells % 0.5 H Neutrophils # 8.4 H Lymphocytes # 1.5 Monocytes # 0.8 Eosinophils # 0.1 Basophils # 0.0 Nucleated Red Blood Cells # 0.1 H Prothrombin Time 31.4 H Prothrombin Time Ratio 2.5 INR International Normalized Ratio 2.98 Sodium Level 135 Potassium Level 4.2 Chloride Level 97 Carbon Dioxide Level 29 Anion Gap 13 Blood Urea Nitrogen 67 H Creatinine 2.51 H Glucose Level 89 Calcium Level 8.4 Medications Medications Current Medications Acetaminophen (Tylenol Liquid) 650 mg Q4H PRN NGT PAIN AND OR ELEVATED TEMP Last administered on 09/27/16 05:14; Admin Dose 650 MG; Start 09/21/16 at 02:00 Eye Lubricant (Artificial Tears Oph) 2 drop QID BOTH EYES Last administered on 10/31/16 20:49; Admin Dose 2 DROP; Start 09/21/16 at 09:00 Atorvastatin Calcium (Lipitor) 80 mg HS NGT Last administered on 10/31/16 20: 50; Admin Dose 80 MG; Start 09/22/16 at 21:00 Pantoprazole (Protonix Iv) 40 mg AM IV Last administered on 10/31/16 09:38; Admin Dose 40 MG; Start 09/26/16 at 09:00 Epoetin Raj (Epogen (Esrd)) 10,000 units TuThSa@17 SC Last administered on 18:24; Admin Dose 10,000 UNITS; Start 09/26/16 at 17:00 IV Flush (NS 10 ml) 10 ml PRN PRN IV IV PROTOCOL; Start 09/26/16 at 17:30 Morphine Sulfate (morphine) 2 mg Q4H PRN IV PAIN Last administered on 12:10; Admin Dose 2 MG; Start 09/28/16 at 16:00 Miscellaneous Information 1 ea NOTE XX ; Start 10/09/16 at 20:30 Dextrose (D50w Syringe) 25 ml Q15M PRN IV DECREASED GLUCOSE Last administered on 10/31/16 02:34; Admin Dose 25 ML; Start 10/09/16 at 20:30 Glucagon (Glucagen) 1 mg Q15M PRN IM DECREASED GLUCOSE; Start 10/09/16 at 20:30 Glucose (Glutose) 15 gm Q15M PRN BUCCAL DECREASED GLUCOSE; Start 10/09/16 at 20: 30 Calcium Carbonate (Tums) 500 mg TID NGT Last administered on 10/31/16 20:50; Admin Dose 500 MG; Start 10/15/16 at 21:00 Insulin Aspart (Novolog Insulin Pen) NOVOLOG *MODERATE* ALGORI... Q4 SC Last administered on 10/29/16 13:14; Admin Dose 2 UNIT; Start 10/16/16 at 13:00 Metoprolol Tartrate (Lopressor) 25 mg BID PO Last administered on 10/31/16 20: 55; Admin Dose 25 MG; Start 10/20/16 at 21:00 Lactulose (Enulose) 20 gm BID PRN PO CONSTIPATION Last administered on 12:57; Admin Dose 20 GM; Start 10/23/16 at 10:30 Lactobacillus Acidophilus (Florajen3 Capsule) 1 each TID PO Last administered on 10/31/16 20:50; Admin Dose 1 EACH; Start 10/25/16 at 13:30 Ferrous Sulfate (Feosol Liquid Cup) 300 mg TID NGT Last administered on 20:50; Admin Dose 300 MG; Start 10/27/16 at 21:00 Amylase/Lipase/ Protease (CREON ([id number])) 3 cap Q6 NGT Last administered on 11/01/16 05:09; Admin Dose 3 CAP; Start 10/29/16 at 13:00 Escitalopram Oxalate (Lexapro) 10 mg QHS NGT Last administered on 10/31/16 20: 50; Admin Dose 10 MG; Start 10/30/16 at 21:00 Lorazepam (Ativan) 0.5 mg Q6H PRN IV ANXIETY Last administered on 10/31/16 09: 34; Admin Dose 0.5 MG; Start 10/30/16 at 10:30 Guaifenesin (Mucinex) 600 mg BID PO Last administered on 10/30/16 21:02; Admin Dose 600 MG; Start 10/30/16 at 21:00; Status Future Hold Guaifenesin (Robitussin Liquid Cup) 200 mg Q6 PO Last administered on 05:08; Admin Dose 200 MG; Start 11/01/16 at 00:00 Latanoprost (Xalatan) 1 drop HS BOTH EYES Last administered on 10/31/16 20:50 ; Admin Dose 1 DROP; Start 10/31/16 at 21:00 Dorzolamide/ Timolol (Cosopt) 1 drop BID BOTH EYES Last administered on t 20:50; Admin Dose 1 DROP; Start 10/31/16 at 21:00 Insulin Glargine (Lantus) 26 unit DAILY@09 SC ; Start 11/01/16 at 09:00 FAZAL LAFLEUR MD Nov 01, 2016 09:25
[2016-11-01] MEDS: DEXTROSE 50% 50 ML SYRINGE IV PRN ×2 (10:16→21:38)
[2016-11-01] MEDS: PANTOPRAZOLE 40 MG INJ IV SCH (10:20)
[2016-11-01] MEDS: FERROUS SULFATE 60 MG/ML 5ML CUP NGT SCH ×3 (10:20→21:55)
[2016-11-01] MEDS: CALCIUM CARBONATE 500 MG CHEW TAB NGT SCH ×3 (10:21→21:55)
[2016-11-01] MEDS: DORZOLAMIDE/TIMOLOL 10 ML OPH BOTH EYES SCH ×2 (10:21→22:04)
[2016-11-01] MEDS: ARTIFICIAL TEARS 15 ML OPH BOTH EYES SCH ×2 (10:22→13:00)
[2016-11-01] MEDS: L ACIDOPHIL/B LACTIS/B LONGUM CAPSULE PO SCH ×3 (10:42→21:55)
[2016-11-01] MEDS ORDERED: PHYTONADIONE 10 MG in DEXTROSE 5% 50 ML IVPB ONE (12:00)
--- NOTE | 2016-11-01 14:25 | CONS ---
DATE OF ADMISSION: 09/20/2016 DATE OF CONSULTATION: TYPE OF CONSULTATION: Gastroenterology. Dear Dr. Jessica Castillo: Thank you for asking me to see Mrs. Danielle in GI consultation. HISTORY OF PRESENT ILLNESS: The patient, as you know, is a 71-year-old white female who was admitte d to the hospital with a possible myocardial infarction. She continues to stay in the hospital. Sh yoan has a history of congestive heart failure, anemia, and she is being fed through a nasogastric tube . Percutaneous endoscopic gastrostomy tube placement has been requested. PAST MEDICAL HISTORY: The patient is unable to give me any history. REVIEW OF SYSTEM: Diabetes, depression, dysphagia, pneumonia, atrial fibrillation. PHYSICAL EXAMINATION: GENERAL: The patient is a 71-year-old white female, who at this time is alert, but she cannot talk adequately. Well built. VITAL SIGNS: Afebrile. CARDIOVASCULAR EXAM: Normal heart sounds. RESPIRATORY SYSTEM: Normal breath sounds. ABDOMEN: Showed evidence of a soft abdomen. CARDIOVASCULAR EXAM: Normal heart sounds. LABORATORY WORKUP: The WBC count is 11,100, hemoglobin is 8.2. The potassium 4.2. BUN is 56, creatinine 2.22. CLINICAL IMPRESSION: The patient has difficulty swallowing. She has a history of myocardial infarc tion, diabetes, depression, atrial fibrillation. Please review the history and physical and other c onsultants' notes for more information. CLINICAL IMPRESSION: Because of the dysphagia, she is on nasogastric tube feedings. PLAN: Percutaneous endoscopic gastrostomy tube placement has been requested and this can be performe d after correcting the coagulation profile, which is an INR of 2.98. We may need to hold off any anticoagulation if she is on it. She was on Coumadin until a couple day s ago. Will discuss with Dr. Castillo. Thank you Dr. Helm and Dr. Jessica Castillo. Dictated By: CIELO COWAN/JERROD Conf#: [id number] DID#: [id number]
[2016-11-01] MEDS ORDERED: FUROSEMIDE 20 MG INJ IV ONE ×4 (15:30→21:00)
[2016-11-01] MEDS: SOD CHLORIDE 0.9% 1,000 ML IV SCH ×2 (15:30→18:04)
--- NOTE | 2016-11-01 15:31 | PN ---
Date/Time of Note Date/Time of Note DATE: 11/01/16 TIME: 15:20 Assessment/Plan VTE Prophylaxis VTE Prophylaxis Intervention: contraindicated (awaiting PEG placement tomorrow , pt inr high) Lines/Catheters IV Catheter Type (from Nrsg): PERM-A-CATH Central line still needed: No Urinary Cath still in place: Yes Reason Cath still needed: terminal illness/intractable pain Assessment/Plan Assessment/Plan 1. cad/ pad/ needing anticoag 2. rld/ effusion/ congested coughs 3. arf/ anemia/ edema--prn dialysis 4. dm/ neuropathy/ vasculopathy pain?--low gluc due to held ngt feed 5. depression--poor px 6. failed swallow test/ low alb ---per cards ---per pulm ---per renal ---ivf replace, vit k, plasma trasfusion to prep for tomorrow's procedure ---alb 25% replace followed by lasix 20mg iv ---lyrica 25mg bid trial ---PEG place tomorrow w/ MD Volodymyr Subjective 24 Hr Interval Summary Free Text/Dictation "body feels heavy on/off legs feel painful" Exam/Review of Systems Vital Signs Vitals Vital Signs Date Time Temp Pulse Resp B/P Pulse Ox O2 Delivery O2 Flow Rate FiO2 11/01/16 14:55 83 20 97 Nasal Cannula 2.0 11/01/16 07:34 98.2 102/55 Intake and Output 10/31/16 10/31/16 11/01/16 15:00 23:00 07:00 Intake Total 300 ml 400 ml Output Total 4800 ml 120 ml Balance -4500 ml 400 ml -120 ml Exam obese+ rt> body lymphadema+ shallow breathing, dec bs+ rr diast m+ toes blue black+ due to residual vol, ngt feed has been held, intake vol was low for past 24hrs Results Result Diagram: 11/01/16 0507 11/01/16 0507 Results 24 hrs Laboratory Tests Test 10/31/16 18:36 10/31/16 20:57 11/01/16 02:30 11/01/16 05:07 Bedside Glucose 132 125 116 White Blood Count 11.1 H Red Blood Count 2.82 L Hemoglobin 8.2 L Hematocrit 29.1 L Mean Corpuscular Volume 103.2 H Mean Corpuscular Hemoglobin 29.1 Mean Corpuscular Hemoglobin Concent 28.2 L Red Cell Distribution Width 24.4 H Platelet Count 221 Mean Platelet Volume 10.6 H Neutrophils % 75.8 Lymphocytes % 13.3 L Monocytes % 7.6 Eosinophils % 0.8 Basophils % 0.3 Nucleated Red Blood Cells % 0.5 H Neutrophils # 8.4 H Lymphocytes # 1.5 Monocytes # 0.8 Eosinophils # 0.1 Basophils # 0.0 Nucleated Red Blood Cells # 0.1 H Prothrombin Time 31.4 H Prothrombin Time Ratio 2.5 INR International Normalized Ratio 2.98 Sodium Level 135 Potassium Level 4.2 Chloride Level 97 Carbon Dioxide Level 29 Anion Gap 13 Blood Urea Nitrogen 67 H Creatinine 2.51 H Glucose Level 89 Calcium Level 8.4 Test 11/01/16 05:08 11/01/16 09:57 11/01/16 10:44 11/01/16 11:19 Bedside Glucose 104 67 L 105 102 Test 11/01/16 14:19 Bedside Glucose 81 Medications Medications Current Medications Acetaminophen (Tylenol Liquid) 650 mg Q4H PRN NGT PAIN AND OR ELEVATED TEMP Last administered on 09/27/16 05:14; Admin Dose 650 MG; Start 09/21/16 at 02:00 Eye Lubricant (Artificial Tears Oph) 2 drop QID BOTH EYES Last administered on 11/01/16 13:00; Admin Dose 2 DROP; Start 09/21/16 at 09:00 Atorvastatin Calcium (Lipitor) 80 mg HS NGT Last administered on 10/31/16 20: 50; Admin Dose 80 MG; Start 09/22/16 at 21:00 Pantoprazole (Protonix Iv) 40 mg AM IV Last administered on 11/01/16 10:20; Admin Dose 40 MG; Start 09/26/16 at 09:00 Epoetin Rja (Epogen (Esrd)) 10,000 units TuThSa@17 SC Last administered on 18:24; Admin Dose 10,000 UNITS; Start 09/26/16 at 17:00 IV Flush (NS 10 ml) 10 ml PRN PRN IV IV PROTOCOL; Start 09/26/16 at 17:30 Morphine Sulfate (morphine) 2 mg Q4H PRN IV PAIN Last administered on 12:10; Admin Dose 2 MG; Start 09/28/16 at 16:00 Miscellaneous Information 1 ea NOTE XX ; Start 10/09/16 at 20:30 Dextrose (D50w Syringe) 25 ml Q15M PRN IV DECREASED GLUCOSE Last administered on 11/01/16 10:16; Admin Dose 25 ML; Start 10/09/16 at 20:30 Glucagon (Glucagen) 1 mg Q15M PRN IM DECREASED GLUCOSE; Start 10/09/16 at 20:30 Glucose (Glutose) 15 gm Q15M PRN BUCCAL DECREASED GLUCOSE; Start 10/09/16 at 20: 30 Calcium Carbonate (Tums) 500 mg TID NGT Last administered on 11/01/16 12:59; Admin Dose 500 MG; Start 10/15/16 at 21:00 Insulin Aspart (Novolog Insulin Pen) NOVOLOG *MODERATE* ALGORI... Q4 SC Last administered on 10/29/16 13:14; Admin Dose 2 UNIT; Start 10/16/16 at 13:00 Metoprolol Tartrate (Lopressor) 25 mg BID PO Last administered on 10/31/16 20: 55; Admin Dose 25 MG; Start 10/20/16 at 21:00 Lactulose (Enulose) 20 gm BID PRN PO CONSTIPATION Last administered on 12:57; Admin Dose 20 GM; Start 10/23/16 at 10:30 Lactobacillus Acidophilus (Florajen3 Capsule) 1 each TID PO Last administered on 11/01/16 12:59; Admin Dose 1 EACH; Start 10/25/16 at 13:30 Ferrous Sulfate (Feosol Liquid Cup) 300 mg TID NGT Last administered on 12:59; Admin Dose 300 MG; Start 10/27/16 at 21:00 Amylase/Lipase/ Protease (CREON ([id number])) 3 cap Q6 NGT Last administered on 11/01/16 12:59; Admin Dose 3 CAP; Start 10/29/16 at 13:00 Escitalopram Oxalate (Lexapro) 10 mg QHS NGT Last administered on 10/31/16 20: 50; Admin Dose 10 MG; Start 10/30/16 at 21:00 Lorazepam (Ativan) 0.5 mg Q6H PRN IV ANXIETY Last administered on 10/31/16 09: 34; Admin Dose 0.5 MG; Start 10/30/16 at 10:30 Guaifenesin (Mucinex) 600 mg BID PO Last administered on 10/30/16 21:02; Admin Dose 600 MG; Start 10/30/16 at 21:00; Status Future Hold Guaifenesin (Robitussin Liquid Cup) 200 mg Q6 PO Last administered on 12:59; Admin Dose 200 MG; Start 11/01/16 at 00:00 Latanoprost (Xalatan) 1 drop HS BOTH EYES Last administered on 10/31/16 20:50 ; Admin Dose 1 DROP; Start 10/31/16 at 21:00 Dorzolamide/ Timolol (Cosopt) 1 drop BID BOTH EYES Last administered on 10:21; Admin Dose 1 DROP; Start 10/31/16 at 21:00 Insulin Glargine (Lantus) 16 unit DAILY@09 SC ; Start 11/02/16 at 09:00 SHMAA LOPEZ MD Nov 01, 2016 15:31
[2016-11-01] MEDS: ALBUMIN HUMAN 25% 100 ML IV SCH ×2 (18:05→21:45)
[2016-11-01 19:24] LABS: INR 1.48; PT RATIO 1.4
[2016-11-01 20:37] VITALS: BP 119/58; RESP 20
[2016-11-01 20:50] VITALS: BP 107/59; RESP 18
[2016-11-01] MEDS: DEXTROSE 5%-0.9% NACL 1,000 ML IV SCH (21:43)
[2016-11-01] MEDS: ATORVASTATIN 80 MG TAB NGT SCH (21:55)
[2016-11-01] MEDS: ESCITALOPRAM 10 MG TAB NGT SCH (21:55)
[2016-11-01] MEDS: PREGABALIN 25 MG CAP NGT SCH (22:03)
[2016-11-01] MEDS: LATANOPROST 0.005% 2.5 ML OPH BOTH EYES SCH (22:04)
[2016-11-02] VITALS (19 sets, daily range): BP systolic 89–127; BP diastolic 46–64; PULSE 69–83; RESP 15–18
[2016-11-02] MEDS: INSULIN ASPART [NOVOLOG] 3 ML PEN SC SCH ×6 (01:00→22:06)
[2016-11-02] MEDS: IPRATROPIUM (NEB) 0.5 MG/2.5 ML AMP HHN SCH ×4 (01:12→19:23)
[2016-11-02] MEDS: ACETYLCYSTEINE 20% 4 ML VIAL NEB SCH ×5 (01:12→19:26)
[2016-11-02] MEDS: LEVALBUTEROL (NEB) 1.25 MG/0.5 ML AMP HHN SCH ×4 (01:12→19:23)
[2016-11-02] MEDS: GUAIFENESIN 20 MG/ML 5ML CUP PO SCH ×5 (05:13→23:18)
[2016-11-02] MEDS: CREON (12k-38k-60k) 1 CAP NGT SCH ×4 (05:13→18:00)
[2016-11-02 06:03] LABS: ADD SCAN DIFF NO
[2016-11-02 06:21] LABS: ABNORMAL IP MESSAGE 1; BASOPHILS % 0.2 % (0.0-2.0); EOSINOPHILS # 0.1 10^3/ul (0.0-0.5); EOSINOPHILS % 0.9 % (0.0-7.0); HEMATOCRIT 25.1 % (37.0-47.0); HEMOGLOBIN 7.4 g/dl (12.0-16.0); LYMPHOCYTES # 1.3 10^3/ul (0.8-2.9); MEAN CORPUSCULAR HEMOGLOBIN 30.3 pg (29.0-33.0); MEAN CORPUSCULAR HGB CONC 29.5 g/dl (32.0-37.0); MEAN CORPUSCULAR VOLUME 102.9 fl (82.0-101.0); MEAN PLATELET VOLUME 10.4 fl (7.4-10.4); MONOCYTE # 0.6 10^3/ul (0.3-0.9); MONOCYTES % 6.3 % (0.0-11.0); NEUTROPHIL # 7.2 10^3/ul (1.6-7.5); NEUTROPHILS % 76.9 % (39.0-77.0); NUCLEATED RED BLOOD CELLS% 0.3 /100WBC (0.0-0.0); PLATELET COUNT 200 10^3/UL (140-415); RED BLOOD COUNT 2.44 10^6/ul (4.20-5.40); RED CELL DISTRIBUTION WIDTH 23.9 % (11.5-14.5); WHITE BLOOD COUNT 9.4 10^3/ul (4.8-10.8)
[2016-11-02 06:32] LABS: POTASSIUM 4.2 mmol/L (3.5-5.1)
[2016-11-02 06:34] LABS: CREATININE 2.72 mg/dl (0.44-1.00)
[2016-11-02 06:35] LABS: CALCIUM 8.6 mg/dl (8.4-10.2)
[2016-11-02 07:06] LABS: INR 1.16; PROTIME 14.9 Sec (12.2-14.2); PT RATIO 1.2
[2016-11-02 07:07] LABS: PARTIAL THROMBOPLASTIN TIME 28.4 Sec (25.0-35.0)
[2016-11-02] MEDS: FERROUS SULFATE 60 MG/ML 5ML CUP NGT SCH ×3 (08:21→22:00)
[2016-11-02] MEDS: PREGABALIN 25 MG CAP NGT SCH ×2 (08:23→22:00)
[2016-11-02] MEDS: L ACIDOPHIL/B LACTIS/B LONGUM CAPSULE PO SCH ×3 (08:23→22:01)
[2016-11-02] MEDS: CALCIUM CARBONATE 500 MG CHEW TAB NGT SCH ×3 (08:23→22:00)
[2016-11-02] MEDS: METOPROLOL 25 MG TAB PO SCH ×2 (08:24→22:01)
[2016-11-02] MEDS: DEXTROSE 5%-0.9% NACL 1,000 ML IV SCH ×3 (08:30→21:00)
[2016-11-02] MEDS: PANTOPRAZOLE 40 MG INJ IV SCH (09:00)
[2016-11-02] MEDS: DORZOLAMIDE/TIMOLOL 10 ML OPH BOTH EYES SCH ×2 (09:25→22:02)
--- NOTE | 2016-11-02 10:50 | PN ---
DATE: 11/02/2016 SUBJECTIVE: The patient currently getting dialysis, is anemic, needs transfusion. Awaiting PEG sue cement, was initially held due to elevated INR. CURRENT VITAL SIGNS: Temperature is 98.9, blood pressure is 94/46, pulse is 71, respirations at 20. The patient currently on dialysis. LABORATORY DATA: Demonstrates a hemoglobin 7.4, creatinine 2.7, potassium 4.2. ASSESSMENT AND PLAN: 1. Coronary artery disease, peripheral artery disease, is usually on anticoagulation, currently cathy ng held because she is supposed to get a PEG placed today. Initially was held because the INR was t oo high. 2. Acute renal failure, anemia, edema, on dialysis. Hemoglobin has dropped today at 7.4. We will repeat CBC after the dialysis is completed and if it does not elevate, we will go ahead and transfus e 1 unit of packed red blood cells. Dictated By: SHAW CARABALLO/JERROD Conf#: [id number] DID#: [id number]
[2016-11-02] MEDS ORDERED: ETOMIDATE 20 MG INJ ONE (12:52)
[2016-11-02] MEDS ORDERED: CEFAZOLIN 2 GM/50 ML (PMX) 50 ML IVPB ONE (12:52)
[2016-11-02] MEDS ORDERED: EPHEDrine SULFATE 50 MG/5 ML SYG IV PRN (13:00)
--- NOTE | 2016-11-02 13:36 | GILP ---
DATE OF PROCEDURE: 11/02/2016 NAME OF PROCEDURE: Esophagogastroduodenoscopy, percutaneous endoscopic gastrostomy tube placement. PREOPERATIVE DIAGNOSIS: Patient presenting with history of cerebrovascular accident, unable to eat any food by herself. She has NG-tube feeding going at this time. PROCEDURE PERFORMED: To create access for long-term nutritional support. POSTOPERATIVE DIAGNOSES:. To create access for long-term nutritional support. DESCRIPTION OF PROCEDURE: After the informed written consent was obtained, the patient was asked to lie in the supine position. Intravenous anesthesia was given by anesthesiologist, Dr. Freitas. When the patient became somnolent, the Olympus video upper endoscope was introduced into the oropha rynx, then into the esophagus. Esophagus appeared normal. Stomach appeared normal. Duodenum appea red normal. Scope at this time was withdrawn to the level of the gastric cavity. The anterior abdo azucena wall was prepared with Betadine and alcohol, 2 mL of 2% Xylocaine was infiltrated at the endos copic illuminating site in the epigastric region. A 5 mm incision was made by using the scalpel. T hrough this incision, trocar was inserted into the stomach. After removing the stylet, the guidewir e was inserted into the stomach and the guidewire was grabbed with a polypectomy snare, and this was brought out through the mouth along with the endoscope. To this end of the guidewire, a #20 Microv asive G-tube was tied in a loop fashion and then it was brought out through the abdominal wall incis ion. Retention bumper was placed over the G-tube close to the skin. Tapered end of the gastrostomy tube was cut, the adapter was placed and the procedure was terminated. PLAN: Recommend starting G-tube feeding in a.m. Dictated By: CIELO COWAN/JERROD Conf#: [id number] DID#: [id number] CC: CIELO SANCHEZ MD; SHAMA LOPEZ MD;*EndCC*
--- NOTE | 2016-11-02 13:59 | CONS ---
Date/Time of Note Date/Time of Note DATE: 11/02/16 TIME: 13:56 Assessment/Plan Assessment/Plan Additional Assessment/Plan * cad/ pad: no active cardiac issues. on meds * arf: remains hd dependent. severe anasarca/ volume overload. plan hd again in am * PNA/ effusion: s/p abx * dm: on iss * obesity: no change * dysphagia: scheduled for peg * anemic in ackd: hb lower today. repeat pending per pcp. cont epogen, check iron sats. consider transfuion if lower Consultation Date/Type/Reason Admit Date/Time Sep 20, 2016 at 19:21 Initial Consult Date 10/22/16 Type of Consultation: Endovascular Cardiology Referring Provider: ZANDRA ROBISON MD, [facility] 24 HR Interval Summary Free Text/Dictation poorly responsive. eyes open. on hd. bp borderline. looks comfortable Exam/Review of Systems Vital Signs Vitals Vital Signs Date Time Temp Pulse Resp B/P Pulse Ox O2 Delivery O2 Flow Rate FiO2 11/02/16 13:45 74 17 117/54 100 Nasal Cannula 2.0 11/02/16 13:26 98.0 Intake and Output 11/01/16 11/01/16 11/02/16 15:00 23:00 07:00 Intake Total 51 ml 320 ml 972 ml Output Total 150 ml 50 ml Balance 51 ml 170 ml 922 ml Exam Constitutional: non-verbal, obese Head: normocephalic Neck: non-tender, supple Respiratory: diminished breath sounds Cardiovascular: edema (3+ edema/ anasarca), regular rate and rhythm Gastrointestinal: non-tender, soft Results Result Diagram: 11/02/16 0523 11/02/16 0523 Results 24 hrs Laboratory Tests Test 11/01/16 14:19 11/01/16 16:50 11/01/16 18:55 11/01/16 21:33 Bedside Glucose 81 82 40 *L Prothrombin Time 18.0 #H Prothrombin Time Ratio 1.4 INR International Normalized Ratio 1.48 Test 11/01/16 21:43 11/01/16 21:54 11/01/16 22:09 11/02/16 01:23 Glucose Level 33 #*L Bedside Glucose 100 89 86 Test 11/02/16 05:13 11/02/16 05:23 11/02/16 05:37 11/02/16 09:23 Prothrombin Time 14.9 H Prothrombin Time Ratio 1.2 INR International Normalized Ratio 1.16 Activated Partial Thromboplast Time 28.4 White Blood Count 9.4 Red Blood Count 2.44 L Hemoglobin 7.4 L Hematocrit 25.1 L Mean Corpuscular Volume 102.9 H Mean Corpuscular Hemoglobin 30.3 Mean Corpuscular Hemoglobin Concent 29.5 L Red Cell Distribution Width 23.9 H Platelet Count 200 Mean Platelet Volume 10.4 Neutrophils % 76.9 Lymphocytes % 14.0 L Monocytes % 6.3 Eosinophils % 0.9 Basophils % 0.2 Nucleated Red Blood Cells % 0.3 H Neutrophils # 7.2 Lymphocytes # 1.3 Monocytes # 0.6 Eosinophils # 0.1 Basophils # 0.0 Nucleated Red Blood Cells # 0.0 Sodium Level 137 Potassium Level 4.2 Chloride Level 97 Carbon Dioxide Level 27 Anion Gap 17 H Blood Urea Nitrogen 74 H Creatinine 2.72 H Glucose Level 95 # Hemoglobin A1c 5.9 Calcium Level 8.6 Magnesium Level 3.0 H Albumin 3.0 L Bedside Glucose 103 141 Test 11/02/16 12:17 Bedside Glucose 132 Medications Medications Current Medications Acetaminophen (Tylenol Liquid) 650 mg Q4H PRN NGT PAIN AND OR ELEVATED TEMP Last administered on 09/27/16 05:14; Admin Dose 650 MG; Start 09/21/16 at 02:00 Atorvastatin Calcium (Lipitor) 80 mg HS NGT Last administered on 11/01/16 21: 55; Admin Dose 80 MG; Start 09/22/16 at 21:00 Pantoprazole (Protonix Iv) 40 mg AM IV Last administered on 11/01/16 10:20; Admin Dose 40 MG; Start 09/26/16 at 09:00 Epoetin Raj (Epogen (Esrd)) 10,000 units TuThSa@17 SC Last administered on 18:24; Admin Dose 10,000 UNITS; Start 09/26/16 at 17:00 IV Flush (NS 10 ml) 10 ml PRN PRN IV IV PROTOCOL; Start 09/26/16 at 17:30 Morphine Sulfate (morphine) 2 mg Q4H PRN IV PAIN Last administered on 12:10; Admin Dose 2 MG; Start 09/28/16 at 16:00 Miscellaneous Information 1 ea NOTE XX ; Start 10/09/16 at 20:30 Dextrose (D50w Syringe) 25 ml Q15M PRN IV DECREASED GLUCOSE Last administered on 11/01/16 21:38; Admin Dose 25 ML; Start 10/09/16 at 20:30 Glucagon (Glucagen) 1 mg Q15M PRN IM DECREASED GLUCOSE; Start 10/09/16 at 20:30 Glucose (Glutose) 15 gm Q15M PRN BUCCAL DECREASED GLUCOSE; Start 10/09/16 at 20: 30 Calcium Carbonate (Tums) 500 mg TID NGT Last administered on 11/01/16 21:55; Admin Dose 500 MG; Start 10/15/16 at 21:00 Insulin Aspart (Novolog Insulin Pen) NOVOLOG *MODERATE* ALGORI... Q4 SC Last administered on 10/29/16 13:14; Admin Dose 2 UNIT; Start 10/16/16 at 13:00 Metoprolol Tartrate (Lopressor) 25 mg BID PO Last administered on 10/31/16 20: 55; Admin Dose 25 MG; Start 10/20/16 at 21:00 Lactulose (Enulose) 20 gm BID PRN PO CONSTIPATION Last administered on 12:57; Admin Dose 20 GM; Start 10/23/16 at 10:30 Lactobacillus Acidophilus (Florajen3 Capsule) 1 each TID PO Last administered on 11/01/16 21:55; Admin Dose 1 EACH; Start 10/25/16 at 13:30 Ferrous Sulfate (Feosol Liquid Cup) 300 mg TID NGT Last administered on 21:55; Admin Dose 300 MG; Start 10/27/16 at 21:00 Amylase/Lipase/ Protease (CREON (03z-[id number])) 3 cap Q6 NGT Last administered on 11/01/16 18:58; Admin Dose 3 CAP; Start 10/29/16 at 13:00 Escitalopram Oxalate (Lexapro) 10 mg QHS NGT Last administered on 11/01/16 21: 55; Admin Dose 10 MG; Start 10/30/16 at 21:00 Lorazepam (Ativan) 0.5 mg Q6H PRN IV ANXIETY Last administered on 10/31/16 09: 34; Admin Dose 0.5 MG; Start 10/30/16 at 10:30 Guaifenesin (Mucinex) 600 mg BID PO Last administered on 10/30/16 21:02; Admin Dose 600 MG; Start 10/30/16 at 21:00; Status Future Hold Guaifenesin (Robitussin Liquid Cup) 200 mg Q6 PO Last administered on 18:58; Admin Dose 200 MG; Start 11/01/16 at 00:00 Latanoprost (Xalatan) 1 drop HS BOTH EYES Last administered on 11/01/16 22:04 ; Admin Dose 1 DROP; Start 10/31/16 at 21:00 Dorzolamide/ Timolol (Cosopt) 1 drop BID BOTH EYES Last administered on 09:25; Admin Dose 1 DROP; Start 10/31/16 at 21:00 Insulin Glargine (Lantus) 16 unit DAILY@09 SC ; Start 11/02/16 at 09:00; Status Future hold Pregabalin 25 mg 25 mg BID NGT Last administered on 11/01/16 22:03; Admin Dose 25 MG; Start 11/01/16 at 21:00 Dextrose/Sodium Chloride (D5-NS) 1,000 ml @ 80 mls/hr [id number] IV Last administered on 11/01/16 21:43; Admin Dose 80 MLS/HR; Start 11/01/16 at 20:00 LOPEZ ATKINS MD Nov 02, 2016 13:59
[2016-11-02] MEDS: EPOETIN 10000 UNITS/1 ML INJ (ESRD) SC SCH (17:56)
[2016-11-02] MEDS: ESCITALOPRAM 10 MG TAB NGT SCH (22:00)
[2016-11-02] MEDS: ATORVASTATIN 80 MG TAB NGT SCH (22:01)
[2016-11-02] MEDS: LATANOPROST 0.005% 2.5 ML OPH BOTH EYES SCH (22:02)
[2016-11-02] MEDS: LORAZEPAM 2 MG INJ IV PRN (23:13)
[2016-11-03] VITALS (9 sets, daily range): BP systolic 91–108; BP diastolic 50–60; PULSE 63–75; RESP 18
[2016-11-03] MEDS: CREON (12k-38k-60k) 1 CAP NGT SCH ×4 (00:50→17:51)
[2016-11-03] MEDS: INSULIN ASPART [NOVOLOG] 3 ML PEN SC SCH ×5 (01:03→18:39)
[2016-11-03] MEDS: IPRATROPIUM (NEB) 0.5 MG/2.5 ML AMP HHN SCH ×4 (01:22→21:53)
[2016-11-03] MEDS: LEVALBUTEROL (NEB) 1.25 MG/0.5 ML AMP HHN SCH ×4 (01:22→21:53)
[2016-11-03] MEDS: ACETYLCYSTEINE 20% 4 ML VIAL NEB SCH ×4 (01:23→21:53)
[2016-11-03] MEDS: GUAIFENESIN 20 MG/ML 5ML CUP PO SCH ×3 (05:52→17:45)
[2016-11-03 06:21] LABS: ADD SCAN DIFF NO
[2016-11-03 06:47] LABS: ABNORMAL IP MESSAGE 1; BASOPHILS % 0.3 % (0.0-2.0); EOSINOPHILS % 0.4 % (0.0-7.0); HEMATOCRIT 31.4 % (37.0-47.0); HEMOGLOBIN 9.2 g/dl (12.0-16.0); LYMPHOCYTES # 1.4 10^3/ul (0.8-2.9); MEAN CORPUSCULAR HEMOGLOBIN 29.6 pg (29.0-33.0); MEAN CORPUSCULAR HGB CONC 29.3 g/dl (32.0-37.0); MEAN PLATELET VOLUME 10.2 fl (7.4-10.4); MONOCYTE # 0.6 10^3/ul (0.3-0.9); MONOCYTES % 5.4 % (0.0-11.0); NEUTROPHIL # 8.5 10^3/ul (1.6-7.5); NEUTROPHILS % 79.1 % (39.0-77.0); NUCLEATED RED BLOOD CELLS # 0.1 10^3/ul (0.0-0.0); NUCLEATED RED BLOOD CELLS% 0.5 /100WBC (0.0-0.0); PLATELET COUNT 218 10^3/UL (140-415); RED BLOOD COUNT 3.11 10^6/ul (4.20-5.40); RED CELL DISTRIBUTION WIDTH 23.6 % (11.5-14.5); WHITE BLOOD COUNT 10.7 10^3/ul (4.8-10.8)
[2016-11-03 06:51] LABS: ALBUMIN 2.9 g/dl (3.3-4.9); ALBUMIN/GLOBULIN RATIO 0.93; BILIRUBIN,INDIRECT 0.2 mg/dl (0-1.1); BILIRUBIN,TOTAL 0.2 mg/dl (0.2-1.3); CALCIUM 8.5 mg/dl (8.4-10.2); CREATININE 2.39 mg/dl (0.44-1.00); PHOSPHORUS 3.9 mg/dl (2.5-4.9); POTASSIUM 3.9 mmol/L (3.5-5.1)
[2016-11-03 07:04] LABS: IRON 21 ug/dl (35-150)
[2016-11-03 07:13] LABS: TOTAL IRON BINDING CAPACITY 176 ug/dl (241-421)
[2016-11-03] MEDS: METOPROLOL 25 MG TAB PO SCH ×2 (08:57→21:16)
[2016-11-03] MEDS: DORZOLAMIDE/TIMOLOL 10 ML OPH BOTH EYES SCH ×2 (08:59→21:15)
[2016-11-03] MEDS: PREGABALIN 25 MG CAP NGT SCH ×2 (09:00→22:39)
[2016-11-03] MEDS: CALCIUM CARBONATE 500 MG CHEW TAB NGT SCH ×3 (09:00→21:16)
[2016-11-03] MEDS: L ACIDOPHIL/B LACTIS/B LONGUM CAPSULE PO SCH ×3 (09:00→21:28)
[2016-11-03] MEDS: PANTOPRAZOLE 40 MG INJ IV SCH (09:00)
[2016-11-03] MEDS: FERROUS SULFATE 60 MG/ML 5ML CUP NGT SCH ×3 (09:00→21:15)
[2016-11-03] MEDS: DEXTROSE 5%-0.9% NACL 1,000 ML IV SCH (09:20)
[2016-11-03] MEDS: INSULIN GLARGINE [LANtus] 3 ML PEN SC SCH (09:25)
[2016-11-03] MEDS ORDERED: WARFARIN 2 MG TAB PO ONE ×2 (11:30)
--- NOTE | 2016-11-03 11:39 | CONS ---
Date/Time of Note Date/Time of Note DATE: 11/03/16 TIME: 11:38 Consult Date/Type/Reason Admit Date/Time Sep 20, 2016 at 19:21 Initial Consult Date 10/22/16 Type of Consultation: Endovascular Cardiology Ordering Provider: ZANDRA ROBISON MD, [facility] Objective Vital Signs Date Time Temp Pulse Resp B/P Pulse Ox O2 Delivery O2 Flow Rate FiO2 11/03/16 08:30 67 11/03/16 08:30 18 11/03/16 07:29 92 Nasal Cannula 1.0 11/03/16 07:26 97.1 108/53 11/02/16 19:24 21 Intake and Output 11/02/16 11/02/16 11/03/16 15:00 23:00 07:00 Intake Total 500 ml 440 ml 600 ml Output Total 4000 ml 100 ml 30 ml Balance -3500 ml 340 ml 570 ml Results/Medications Result Diagram: 11/03/16 0543 11/03/16 0543 Results 24 hrs Laboratory Tests Test 11/02/16 12:17 11/02/16 17:29 11/02/16 21:59 11/03/16 00:52 Bedside Glucose 132 135 166 184 Test 11/03/16 05:43 11/03/16 05:53 11/03/16 09:17 White Blood Count 10.7 Red Blood Count 3.11 #L Hemoglobin 9.2 #L Hematocrit 31.4 #L Mean Corpuscular Volume 101.0 Mean Corpuscular Hemoglobin 29.6 Mean Corpuscular Hemoglobin Concent 29.3 L Red Cell Distribution Width 23.6 H Platelet Count 218 Mean Platelet Volume 10.2 Neutrophils % 79.1 H Lymphocytes % 13.0 L Monocytes % 5.4 Eosinophils % 0.4 Basophils % 0.3 Nucleated Red Blood Cells % 0.5 H Neutrophils # 8.5 H Lymphocytes # 1.4 Monocytes # 0.6 Eosinophils # 0.0 Basophils # 0.0 Nucleated Red Blood Cells # 0.1 H Sodium Level 136 Potassium Level 3.9 Chloride Level 101 Carbon Dioxide Level 27 Anion Gap 12 Blood Urea Nitrogen 59 H Creatinine 2.39 H Glucose Level 163 Calcium Level 8.5 Phosphorus Level 3.9 Iron Level 21 L Total Iron Binding Capacity 176 L Percent Iron Saturation 12 L Ferritin 379.0 H Total Bilirubin 0.2 Direct Bilirubin 0.00 Indirect Bilirubin 0.2 Aspartate Amino Transf (AST/SGOT) 50 H Alanine Aminotransferase (ALT/SGPT) 57 Alkaline Phosphatase 160 H Total Protein 6.0 L Albumin 2.9 L Globulin 3.10 Albumin/Globulin Ratio 0.93 Bedside Glucose 173 202 Medications Current Medications Acetaminophen (Tylenol Liquid) 650 mg Q4H PRN NGT PAIN AND OR ELEVATED TEMP Last administered on 09/27/16 05:14; Admin Dose 650 MG; Start 09/21/16 at 02:00 Atorvastatin Calcium (Lipitor) 80 mg HS NGT Last administered on 11/02/16 22: 01; Admin Dose 80 MG; Start 09/22/16 at 21:00 Pantoprazole (Protonix Iv) 40 mg AM IV Last administered on 11/03/16 09:00; Admin Dose 40 MG; Start 09/26/16 at 09:00 Epoetin Raj (Epogen (Esrd)) 10,000 units TuThSa@17 SC Last administered on 17:56; Admin Dose 10,000 UNITS; Start 09/26/16 at 17:00 IV Flush (NS 10 ml) 10 ml PRN PRN IV IV PROTOCOL; Start 09/26/16 at 17:30 Morphine Sulfate (morphine) 2 mg Q4H PRN IV PAIN Last administered on 12:10; Admin Dose 2 MG; Start 09/28/16 at 16:00 Miscellaneous Information 1 ea NOTE XX ; Start 10/09/16 at 20:30 Dextrose (D50w Syringe) 25 ml Q15M PRN IV DECREASED GLUCOSE Last administered on 11/01/16 21:38; Admin Dose 25 ML; Start 10/09/16 at 20:30 Glucagon (Glucagen) 1 mg Q15M PRN IM DECREASED GLUCOSE; Start 10/09/16 at 20:30 Glucose (Glutose) 15 gm Q15M PRN BUCCAL DECREASED GLUCOSE; Start 10/09/16 at 20: 30 Calcium Carbonate (Tums) 500 mg TID NGT Last administered on 11/03/16 09:00; Admin Dose 500 MG; Start 10/15/16 at 21:00 Insulin Aspart (Novolog Insulin Pen) NOVOLOG *MODERATE* ALGORI... Q4 SC Last administered on 11/03/16 09:22; Admin Dose 4 UNIT; Start 10/16/16 at 13:00 Metoprolol Tartrate (Lopressor) 25 mg BID PO Last administered on 11/02/16 22: 01; Admin Dose 25 MG; Start 10/20/16 at 21:00 Lactulose (Enulose) 20 gm BID PRN PO CONSTIPATION Last administered on 12:57; Admin Dose 20 GM; Start 10/23/16 at 10:30 Lactobacillus Acidophilus (Florajen3 Capsule) 1 each TID PO Last administered on 11/03/16 09:00; Admin Dose 1 EACH; Start 10/25/16 at 13:30 Ferrous Sulfate (Feosol Liquid Cup) 300 mg TID NGT Last administered on 09:00; Admin Dose 300 MG; Start 10/27/16 at 21:00 Amylase/Lipase/ Protease (CREON (12k-[id number])) 3 cap Q6 NGT Last administered on 11/03/16 05:55; Admin Dose 3 CAP; Start 10/29/16 at 13:00 Escitalopram Oxalate (Lexapro) 10 mg QHS NGT Last administered on 11/02/16 22: 00; Admin Dose 10 MG; Start 10/30/16 at 21:00 Lorazepam (Ativan) 0.5 mg Q6H PRN IV ANXIETY Last administered on 11/02/16 23: 13; Admin Dose 0.5 MG; Start 10/30/16 at 10:30 Guaifenesin (Mucinex) 600 mg BID PO Last administered on 10/30/16 21:02; Admin Dose 600 MG; Start 10/30/16 at 21:00; Status Future Hold Guaifenesin (Robitussin Liquid Cup) 200 mg Q6 PO Last administered on 18:58; Admin Dose 200 MG; Start 11/01/16 at 00:00 Latanoprost (Xalatan) 1 drop HS BOTH EYES Last administered on 11/02/16 22:02 ; Admin Dose 1 DROP; Start 10/31/16 at 21:00 Dorzolamide/ Timolol (Cosopt) 1 drop BID BOTH EYES Last administered on 08:59; Admin Dose 1 DROP; Start 10/31/16 at 21:00 Insulin Glargine (Lantus) 16 unit DAILY@09 SC Last administered on 11/03/16 09 :25; Admin Dose 16 UNIT; Start 11/02/16 at 09:00; Status Future hold Pregabalin 25 mg 25 mg BID NGT Last administered on 11/03/16 09:00; Admin Dose 25 MG; Start 11/01/16 at 21:00 Dextrose/Sodium Chloride (D5-NS) 1,000 ml @ 80 mls/hr [id number] IV Last administered on 11/03/16 09:20; Admin Dose 80 MLS/HR; Start 11/01/16 at 20:00 Warfarin Sodium (Coumadin) 4 mg NOW ONCE PO ; Start 11/03/16 at 11:30; Stop at 11:31; Status UNV Warfarin Sodium (Coumadin) 4 mg NOW ONCE PO ; Start 11/03/16 at 11:30; Stop at 11:31; Status UNV Assessment/Plan Chief Complaint/Hosp Course Patient is 71 year old F with PMH of HTn, HLD, 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 Patient was seen and examined at bedside. She has NGT placed so her speech was not that clear. she does feel overall weak but stable. denies any CP or SOB. she has resting leg pain on and off according to her but there is clear gangrene on toes. its not dry yet but in the process. Problems: Additional Assessment/Plan Pt is still weak doing fine stable vascular palmer stable with gangrene plan to work up once she is more stable LVEF 65%. VIRGINIE JUARES MD Nov 03, 2016 11:38
--- NOTE | 2016-11-03 11:58 | CONS ---
Date/Time of Note Date/Time of Note DATE: 11/03/16 TIME: 11:57 Assessment/Plan Assessment/Plan Additional Assessment/Plan * cad/ pad: no active cardiac issues. on meds * arf: remains hd dependent. severe anasarca/ volume overload.on hd today and has had daily hd x 3 days. reasses in am * PNA/ effusion: s/p abx * dm: on iss * obesity: no change * anemic in ckd: on epogen prbc prn Consultation Date/Type/Reason Admit Date/Time Sep 20, 2016 at 19:21 Initial Consult Date 10/22/16 Type of Consultation: Endovascular Cardiology Referring Provider: ZANDR[facility] ROBISON [facility] Interval Summary Free Text/Dictation currently on hd and tolerating well. more aware but confused Exam/Review of Systems Vital Signs Vitals Vital Signs Date Time Temp Pulse Resp B/P Pulse Ox O2 Delivery O2 Flow Rate FiO2 11/03/16 08:30 67 11/03/16 08:30 18 11/03/16 07:29 92 Nasal Cannula 1.0 11/03/16 07:26 97.1 108/53 11/02/16 19:24 21 Intake and Output 11/02/16 11/02/16 11/03/16 15:00 23:00 07:00 Intake Total 500 ml 440 ml 600 ml Output Total 4000 ml 100 ml 30 ml Balance -3500 ml 340 ml 570 ml Exam Constitutional: non-verbal, obese, other (confused) Head: atraumatic, normocephalic Neck: non-tender, supple Respiratory: diminished breath sounds Cardiovascular: edema (1-2 + edema better), regular rate and rhythm Gastrointestinal: non-tender, soft Results Result Diagram: 11/03/16 0543 11/03/16 0543 Results 24 hrs Laboratory Tests Test 11/02/16 12:17 11/02/16 17:29 11/02/16 21:59 11/03/16 00:52 Bedside Glucose 132 135 166 184 Test 11/03/16 05:43 11/03/16 05:53 11/03/16 09:17 White Blood Count 10.7 Red Blood Count 3.11 #L Hemoglobin 9.2 #L Hematocrit 31.4 #L Mean Corpuscular Volume 101.0 Mean Corpuscular Hemoglobin 29.6 Mean Corpuscular Hemoglobin Concent 29.3 L Red Cell Distribution Width 23.6 H Platelet Count 218 Mean Platelet Volume 10.2 Neutrophils % 79.1 H Lymphocytes % 13.0 L Monocytes % 5.4 Eosinophils % 0.4 Basophils % 0.3 Nucleated Red Blood Cells % 0.5 H Neutrophils # 8.5 H Lymphocytes # 1.4 Monocytes # 0.6 Eosinophils # 0.0 Basophils # 0.0 Nucleated Red Blood Cells # 0.1 H Sodium Level 136 Potassium Level 3.9 Chloride Level 101 Carbon Dioxide Level 27 Anion Gap 12 Blood Urea Nitrogen 59 H Creatinine 2.39 H Glucose Level 163 Calcium Level 8.5 Phosphorus Level 3.9 Iron Level 21 L Total Iron Binding Capacity 176 L Percent Iron Saturation 12 L Ferritin 379.0 H Total Bilirubin 0.2 Direct Bilirubin 0.00 Indirect Bilirubin 0.2 Aspartate Amino Transf (AST/SGOT) 50 H Alanine Aminotransferase (ALT/SGPT) 57 Alkaline Phosphatase 160 H Total Protein 6.0 L Albumin 2.9 L Globulin 3.10 Albumin/Globulin Ratio 0.93 Bedside Glucose 173 202 Medications Medications Current Medications Acetaminophen (Tylenol Liquid) 650 mg Q4H PRN NGT PAIN AND OR ELEVATED TEMP Last administered on 09/27/16 05:14; Admin Dose 650 MG; Start 09/21/16 at 02:00 Atorvastatin Calcium (Lipitor) 80 mg HS NGT Last administered on 11/02/16 22: 01; Admin Dose 80 MG; Start 09/22/16 at 21:00 Pantoprazole (Protonix Iv) 40 mg AM IV Last administered on 11/03/16 09:00; Admin Dose 40 MG; Start 09/26/16 at 09:00 Epoetin Raj (Epogen (Esrd)) 10,000 units [facility]@17 SC Last administered on 17:56; Admin Dose 10,000 UNITS; Start 09/26/16 at 17:00 IV Flush (NS 10 ml) 10 ml PRN PRN IV IV PROTOCOL; Start 09/26/16 at 17:30 Morphine Sulfate (morphine) 2 mg Q4H PRN IV PAIN Last administered on 12:10; Admin Dose 2 MG; Start 09/28/16 at 16:00 Miscellaneous Information 1 ea NOTE XX ; Start 10/09/16 at 20:30 Dextrose (D50w Syringe) 25 ml Q15M PRN IV DECREASED GLUCOSE Last administered on 11/01/16 21:38; Admin Dose 25 ML; Start 10/09/16 at 20:30 Glucagon (Glucagen) 1 mg Q15M PRN IM DECREASED GLUCOSE; Start 10/09/16 at 20:30 Glucose (Glutose) 15 gm Q15M PRN BUCCAL DECREASED GLUCOSE; Start 10/09/16 at 20: 30 Calcium Carbonate (Tums) 500 mg TID NGT Last administered on 11/03/16 09:00; Admin Dose 500 MG; Start 10/15/16 at 21:00 Insulin Aspart (Novolog Insulin Pen) NOVOLOG *MODERATE* ALGORI... Q4 SC Last administered on 11/03/16 09:22; Admin Dose 4 UNIT; Start 10/16/16 at 13:00 Metoprolol Tartrate (Lopressor) 25 mg BID PO Last administered on 11/02/16 22: 01; Admin Dose 25 MG; Start 10/20/16 at 21:00 Lactulose (Enulose) 20 gm BID PRN PO CONSTIPATION Last administered on 12:57; Admin Dose 20 GM; Start 10/23/16 at 10:30 Lactobacillus Acidophilus (Florajen3 Capsule) 1 each TID PO Last administered on 11/03/16 09:00; Admin Dose 1 EACH; Start 10/25/16 at 13:30 Ferrous Sulfate (Feosol Liquid Cup) 300 mg TID NGT Last administered on 09:00; Admin Dose 300 MG; Start 10/27/16 at 21:00 Amylase/Lipase/ Protease (CREON ([id number])) 3 cap Q6 NGT Last administered on 11/03/16 05:55; Admin Dose 3 CAP; Start 10/29/16 at 13:00 Escitalopram Oxalate (Lexapro) 10 mg QHS NGT Last administered on 11/02/16 22: 00; Admin Dose 10 MG; Start 10/30/16 at 21:00 Lorazepam (Ativan) 0.5 mg Q6H PRN IV ANXIETY Last administered on 11/02/16 23: 13; Admin Dose 0.5 MG; Start 10/30/16 at 10:30 Guaifenesin (Mucinex) 600 mg BID PO Last administered on 10/30/16 21:02; Admin Dose 600 MG; Start 10/30/16 at 21:00; Status Future Hold Guaifenesin (Robitussin Liquid Cup) 200 mg Q6 PO Last administered on 18:58; Admin Dose 200 MG; Start 11/01/16 at 00:00 Latanoprost (Xalatan) 1 drop HS BOTH EYES Last administered on 11/02/16 22:02 ; Admin Dose 1 DROP; Start 10/31/16 at 21:00 Dorzolamide/ Timolol (Cosopt) 1 drop BID BOTH EYES Last administered on 08:59; Admin Dose 1 DROP; Start 10/31/16 at 21:00 Insulin Glargine (Lantus) 16 unit DAILY@09 SC Last administered on 11/03/16 09 :25; Admin Dose 16 UNIT; Start 11/02/16 at 09:00; Status Future hold Pregabalin 25 mg 25 mg BID NGT Last administered on 11/03/16 09:00; Admin Dose 25 MG; Start 11/01/16 at 21:00 Dextrose/Sodium Chloride (D5-NS) 1,000 ml @ 80 mls/hr [id number] IV Last administered on 11/03/16 09:20; Admin Dose 80 MLS/HR; Start 11/01/16 at 20:00 LOPEZ ATKINS MD Nov 03, 2016 11:58
--- NOTE | 2016-11-03 12:42 | PN ---
DATE: 11/03/2016 SUBJECTIVE: Patient is resting comfortably. PHYSICAL EXAMINATION: VITAL SIGNS: Blood pressure is 108/53, pulse is 67, respirations at 18, temperature 97.1. COURSE: The patient had 1 unit of packed red blood cells transfused yesterday. Hemoglobin was appr oximately at 7.4. It was to be repeated and if it was still in the 7's, the patient was to be trans fused 1 unit. The patient also had her PEG tube placed and currently the nutrition is flowing. CARDIOVASCULAR: Regular rate. LUNGS: Diminished breath sounds. EXTREMITIES: Positive pitting edema. GASTROINTESTINAL: Nontender, nondistended. ASSESSMENT AND PLAN: 1. Cardiovascular, coronary artery disease, peripheral artery disease. Patient was on anticoagulat ion in the past but was held in preparation for the PEG placement. We will restart Coumadin at 4 mg . According to the old note by the flower shop manager, the patient was to be on 2 anticoagulants due to t he coronary artery disease and the stent. Unable to find if she was on both prior to the PEG placem ent. We will let cardiology and her primary determine if she needs to go back onto to Plavix or not . 3. Acute renal failure and anemia, anasarca. The patient has been getting dialysis. Creatinine di d not go down enough. Renal was reporting that they will be doing a second hemodialysis today. 4. Depression. LABORATORY DATA: Currently, sodium 136, potassium 3.9, creatinine 2.39. Hemoglobin now 9.2. Dictated By: SHAW CARABALLO/JERROD Conf#: [id number] DID#: [id number]
[2016-11-03] MEDS ORDERED: GLUCOSE GEL 15 GRAM TUBE BUCCAL PRN (18:00)
[2016-11-03] MEDS ORDERED: GLUCOSE GEL 15 GRAM TUBE PO PRN ×2 (18:00)
[2016-11-03] MEDS ORDERED: DEXTROSE 50% 50 ML SYRINGE IV PRN ×2 (18:00)
[2016-11-03] MEDS: ESCITALOPRAM 10 MG TAB NGT SCH (21:15)
[2016-11-03] MEDS: ATORVASTATIN 80 MG TAB NGT SCH (21:15)
[2016-11-03] MEDS: LATANOPROST 0.005% 2.5 ML OPH BOTH EYES SCH (21:15)
[2016-11-03] MEDS: LORAZEPAM 2 MG INJ IV PRN (21:17)
[2016-11-04] MEDS: INSULIN ASPART [NOVOLOG] 3 ML PEN SC SCH ×4 (00:01→19:22)
[2016-11-04] MEDS: GUAIFENESIN 20 MG/ML 5ML CUP PO SCH ×4 (00:46→18:52)
[2016-11-04] MEDS: CREON (12k-38k-60k) 1 CAP NGT SCH ×4 (00:46→18:51)
[2016-11-04] MEDS: LEVALBUTEROL (NEB) 1.25 MG/0.5 ML AMP HHN SCH ×4 (03:18→19:29)
[2016-11-04] MEDS: ACETYLCYSTEINE 20% 4 ML VIAL NEB SCH ×4 (03:18→19:29)
[2016-11-04] MEDS: IPRATROPIUM (NEB) 0.5 MG/2.5 ML AMP HHN SCH ×4 (03:18→19:29)
[2016-11-04 05:56] LABS: ADD SCAN DIFF NO
[2016-11-04 05:59] LABS: ABNORMAL IP MESSAGE 1; BASOPHILS % 0.3 % (0.0-2.0); EOSINOPHILS # 0.1 10^3/ul (0.0-0.5); EOSINOPHILS % 1.1 % (0.0-7.0); HEMATOCRIT 31.8 % (37.0-47.0); HEMOGLOBIN 9.4 g/dl (12.0-16.0); LYMPHOCYTES # 1.5 10^3/ul (0.8-2.9); LYMPHOCYTES % 14.6 % (15.0-51.0); MEAN CORPUSCULAR HEMOGLOBIN 29.7 pg (29.0-33.0); MEAN CORPUSCULAR HGB CONC 29.6 g/dl (32.0-37.0); MEAN CORPUSCULAR VOLUME 100.6 fl (82.0-101.0); MEAN PLATELET VOLUME 10.3 fl (7.4-10.4); MONOCYTE # 0.7 10^3/ul (0.3-0.9); MONOCYTES % 6.2 % (0.0-11.0); NEUTROPHIL # 7.9 10^3/ul (1.6-7.5); NEUTROPHILS % 75.9 % (39.0-77.0); NUCLEATED RED BLOOD CELLS% 0.4 /100WBC (0.0-0.0); PLATELET COUNT 183 10^3/UL (140-415); RED BLOOD COUNT 3.16 10^6/ul (4.20-5.40); RED CELL DISTRIBUTION WIDTH 23.5 % (11.5-14.5); WHITE BLOOD COUNT 10.4 10^3/ul (4.8-10.8)
[2016-11-04 06:14] LABS: INR 1.56; PROTIME 18.8 Sec (12.2-14.2); PT RATIO 1.5
[2016-11-04 06:25] LABS: ALBUMIN 2.6 g/dl (3.3-4.9)
[2016-11-04 06:26] LABS: POTASSIUM 3.3 mmol/L (3.5-5.1)
[2016-11-04 06:28] LABS: ALBUMIN/GLOBULIN RATIO 0.81; BILIRUBIN,INDIRECT 0.3 mg/dl (0-1.1); BILIRUBIN,TOTAL 0.3 mg/dl (0.2-1.3); CREATININE 2.14 mg/dl (0.44-1.00); TOTAL PROTEIN 5.8 g/dl (6.1-8.1)
[2016-11-04 06:29] LABS: CALCIUM 8.3 mg/dl (8.4-10.2)
[2016-11-04 07:20] VITALS: BP 100/52; RESP 18
[2016-11-04] MEDS: METOPROLOL 25 MG TAB PO SCH ×2 (09:00→20:52)
[2016-11-04] MEDS: DORZOLAMIDE/TIMOLOL 10 ML OPH BOTH EYES SCH ×2 (09:19→20:51)
[2016-11-04] MEDS: CALCIUM CARBONATE 500 MG CHEW TAB NGT SCH ×3 (09:20→20:50)
[2016-11-04] MEDS: PANTOPRAZOLE 40 MG INJ IV SCH (09:20)
[2016-11-04] MEDS: PREGABALIN 25 MG CAP NGT SCH ×2 (09:20→20:50)
[2016-11-04] MEDS: L ACIDOPHIL/B LACTIS/B LONGUM CAPSULE PO SCH ×3 (09:20→20:51)
[2016-11-04] MEDS: FERROUS SULFATE 60 MG/ML 5ML CUP NGT SCH ×3 (09:20→20:50)
[2016-11-04] MEDS: INSULIN GLARGINE [LANtus] 3 ML PEN SC SCH (10:29)
[2016-11-04] MEDS ORDERED: POTASSIUM CHLORIDE (SR) 20 MEQ TAB PO STA (11:35)
--- NOTE | 2016-11-04 11:48 | PN ---
Date/Time of Note Date/Time of Note DATE: 11/04/16 TIME: 11:40 Assessment/Plan VTE Prophylaxis VTE Prophylaxis Intervention: other (COUM) Lines/Catheters IV Catheter Type (from Nrsg): permacath Central line still needed: No Urinary Cath still in place: Yes Reason Cath still needed: terminal illness/intractable pain Assessment/Plan Assessment/Plan 1. CAD/ HTN/ PAD/ ON ANTICOAG 2. RLD/ EFFUSION 3. ARF/ ANEMIA/ EDEMA--ON PRN DIALYSIS 4. DM 5. DEPRESSION ANXIETY 6. MUSC WEAK/ DYSPHAGIA--PEG FEED/ LOW ALB 7. LOW K/ LOW CALC ---PER CARDS ---PER RENAL ---REPLACE ALB FOLLOWED BY [facility] ---REPLACE CALC/ K ---COUM 4MG TONIGHT ---MUST STIMULATE MUSC STRENGTH FOR BETTER RECOVERY TO GET OUT OF HOSP Subjective 24 Hr Interval Summary Free Text/Dictation MORE COMFORTABLE Exam/Review of Systems Vital Signs Vitals Vital Signs Date Time Temp Pulse Resp B/P Pulse Ox O2 Delivery O2 Flow Rate FiO2 11/04/16 07:45 70 18 98 Nasal Cannula 2.0 11/04/16 07:20 98.3 100/52 11/02/16 19:24 21 Intake and Output 11/03/16 11/03/16 11/04/16 14:59 22:59 06:59 Intake Total 900 ml 450 ml 200 ml Output Total 3300 ml 20 ml 50 ml Balance -2400 ml 430 ml 150 ml Exam OBESE+ GLOBAL EDEMA+ LESS ACCESS MUSC USE TO BREATHE, DEC BS IN LUNGS+ RR TOES BLUE BLACK+ Results Result Diagram: 11/04/16 0537 11/04/16 0537 Results 24 hrs Laboratory Tests Test 11/03/16 13:13 11/03/16 17:49 11/03/16 23:57 11/04/16 05:37 Bedside Glucose 224 H 166 143 White Blood Count 10.4 Red Blood Count 3.16 L Hemoglobin 9.4 L Hematocrit 31.8 L Mean Corpuscular Volume 100.6 Mean Corpuscular Hemoglobin 29.7 Mean Corpuscular Hemoglobin Concent 29.6 L Red Cell Distribution Width 23.5 H Platelet Count 183 Mean Platelet Volume 10.3 Neutrophils % 75.9 Lymphocytes % 14.6 L Monocytes % 6.2 Eosinophils % 1.1 Basophils % 0.3 Nucleated Red Blood Cells % 0.4 H Neutrophils # 7.9 H Lymphocytes # 1.5 Monocytes # 0.7 Eosinophils # 0.1 Basophils # 0.0 Nucleated Red Blood Cells # 0.0 Prothrombin Time 18.8 #H Prothrombin Time Ratio 1.5 INR International Normalized Ratio 1.56 Sodium Level 138 Potassium Level 3.3 L Chloride Level 100 Carbon Dioxide Level 27 Anion Gap 14 Blood Urea Nitrogen 45 #H Creatinine 2.14 H Glucose Level 159 Calcium Level 8.3 L Total Bilirubin 0.3 Direct Bilirubin 0.00 Indirect Bilirubin 0.3 Aspartate Amino Transf (AST/SGOT) 57 H Alanine Aminotransferase (ALT/SGPT) 51 Alkaline Phosphatase 158 H Total Protein 5.8 L Albumin 2.6 L Globulin 3.20 Albumin/Globulin Ratio 0.81 Test 11/04/16 05:46 Bedside Glucose 151 Medications Medications Current Medications Acetaminophen (Tylenol Liquid) 650 mg Q4H PRN NGT PAIN AND OR ELEVATED TEMP Last administered on 09/27/16 05:14; Admin Dose 650 MG; Start 09/21/16 at 02:00 Atorvastatin Calcium (Lipitor) 80 mg HS NGT Last administered on 11/03/16 21: 15; Admin Dose 80 MG; Start 09/22/16 at 21:00 Pantoprazole (Protonix Iv) 40 mg AM IV Last administered on 11/04/16 09:20; Admin Dose 40 MG; Start 09/26/16 at 09:00 Epoetin Raj (Epogen (Esrd)) 10,000 units [facility]@17 SC Last administered on 17:56; Admin Dose 10,000 UNITS; Start 09/26/16 at 17:00 IV Flush (NS 10 ml) 10 ml PRN PRN IV IV PROTOCOL; Start 09/26/16 at 17:30 Morphine Sulfate (morphine) 2 mg Q4H PRN IV PAIN Last administered on 12:10; Admin Dose 2 MG; Start 09/28/16 at 16:00 Dextrose (D50w Syringe) 25 ml Q15M PRN IV DECREASED GLUCOSE Last administered on 11/01/16 21:38; Admin Dose 25 ML; Start 10/09/16 at 20:30 Calcium Carbonate (Tums) 500 mg TID NGT Last administered on 11/04/16 09:20; Admin Dose 500 MG; Start 10/15/16 at 21:00 Metoprolol Tartrate (Lopressor) 25 mg BID PO Last administered on 11/03/16 21: 16; Admin Dose 25 MG; Start 10/20/16 at 21:00 Lactulose (Enulose) 20 gm BID PRN PO CONSTIPATION Last administered on 12:57; Admin Dose 20 GM; Start 10/23/16 at 10:30 Lactobacillus Acidophilus (Florajen3 Capsule) 1 each TID PO Last administered on 11/04/16 09:20; Admin Dose 1 EACH; Start 10/25/16 at 13:30 Ferrous Sulfate (Feosol Liquid Cup) 300 mg TID NGT Last administered on 09:20; Admin Dose 300 MG; Start 10/27/16 at 21:00 Amylase/Lipase/ Protease (CREON ([id number])) 3 cap Q6 NGT Last administered on 11/04/16 05:47; Admin Dose 3 CAP; Start 10/29/16 at 13:00 Escitalopram Oxalate (Lexapro) 10 mg QHS NGT Last administered on 11/03/16 21: 15; Admin Dose 10 MG; Start 10/30/16 at 21:00 Lorazepam (Ativan) 0.5 mg Q6H PRN IV ANXIETY Last administered on 11/03/16 21: 17; Admin Dose 0.5 MG; Start 10/30/16 at 10:30 Guaifenesin (Mucinex) 600 mg BID PO Last administered on 10/30/16 21:02; Admin Dose 600 MG; Start 10/30/16 at 21:00; Status Future Hold Guaifenesin (Robitussin Liquid Cup) 200 mg Q6 PO Last administered on 11/04/16 05:47; Admin Dose 200 MG; Start 11/01/16 at 00:00 Latanoprost (Xalatan) 1 drop HS BOTH EYES Last administered on 11/03/16 21:15 ; Admin Dose 1 DROP; Start 10/31/16 at 21:00 Dorzolamide/ Timolol (Cosopt) 1 drop BID BOTH EYES Last administered on 09:19; Admin Dose 1 DROP; Start 10/31/16 at 21:00 Insulin Glargine (Lantus) 16 unit DAILY@09 SC Last administered on 11/04/16 10: 29; Admin Dose 16 UNIT; Start 11/02/16 at 09:00; Status Future hold Pregabalin (Lyrica) 25 mg BID NGT Last administered on 11/04/16 09:20; Admin Dose 25 MG; Start 11/01/16 at 21:00 Insulin Aspart (Novolog Insulin Pen) NOVOLOG *MODERATE* ALGORI... Q6 SC Last administered on 11/04/16 06:06; Admin Dose 2 UNIT; Start 11/03/16 at 18:00 Miscellaneous Information 1 ea NOTE XX ; Start 11/03/16 at 18:00 Glucose (Glutose) 15 gm Q15M PRN PO DECREASED GLUCOSE; Start 11/03/16 at 18:00 Glucose (Glutose) 22.5 gm Q15M PRN PO DECREASED GLUCOSE; Start 11/03/16 at 18: 00 Dextrose (D50w Syringe) 25 ml Q15M PRN IV DECREASED GLUCOSE; Start 11/03/16 at 18:00 Dextrose (D50w Syringe) 50 ml Q15M PRN IV DECREASED GLUCOSE; Start 11/03/16 at 18:00 Glucagon (Glucagen) 1 mg Q15M PRN IM DECREASED GLUCOSE; Start 11/03/16 at 18:00 Glucose (Glutose) 15 gm Q15M PRN BUCCAL DECREASED GLUCOSE; Start 11/03/16 at 18 :00 SHAMA LOPEZ MD November 04, 2016 11:47
[2016-11-04] MEDS ORDERED: ALBUMIN HUMAN 25% 100 ML IV ONE (12:00)
[2016-11-04] MEDS ORDERED: FUROSEMIDE 20 MG INJ IV ONE (12:00)
[2016-11-04 13:02] VITALS: BP 104/58; PULSE 77; RESP 16
--- NOTE | 2016-11-04 13:43 | CONS ---
Date/Time of Note Date/Time of Note DATE: 11/04/16 TIME: 13:34 Assessment/Plan Assessment/Plan Chief Complaint/Hosp Course 1. Acute Renal Failure due to ATN , she is oliguric . She had been having hemodialysis every other day . She continues to have edema . Will order DUF tomorrow . 2. ALOC , she continues to be very weak and lethargic , I discussed with nurse about using lorazepam sparingly . 3. liver enzyme elevation due to anoxia , enzymes are decreasing . 4. CHF , she continues to have lung congestion and edema . 5. hypocalcemia/hypoalbuminemia , calcium is higher 6. anemia , she has not had any recent GI bleeding . 7. peripheral vascular disease . 8. respiratory failure , off ventilator . 9 dysphagia , she has a PEG . . Problems: Consultation Date/Type/Reason Admit Date/Time Sep 20, 2016 at 19:21 Initial Consult Date 09/23/16 Type of Consultation: renal Referring Provider: ZANDRA ROBISON MD, [facility] HR Interval Summary Free Text/Dictation She is lethargic but does try to answer questions . He speech is weak . Constitutional: no complaints Exam/Review of Systems Vital Signs Vitals Vital Signs Date Time Temp Pulse Resp B/P Pulse Ox O2 Delivery O2 Flow Rate FiO2 11/04/16 13:02 77 16 104/58 100 Nasal Cannula 11/04/16 07:45 2.0 11/04/16 07:20 98.3 11/02/16 19:24 21 Intake and Output 11/03/16 11/03/16 11/04/16 15:00 23:00 07:00 Intake Total 1350 ml 200 ml Output Total 3300 ml 20 ml 50 ml Balance -1950 ml -20 ml 150 ml Exam Constitutional: alert, frail Neck: supple Respiratory: clear to auscultation Cardiovascular: regular rate and rhythm Gastrointestinal: soft Extremities: edema Results Result Diagram: 11/04/16 0537 11/04/16 0537 Results 24 hrs Laboratory Tests Test 11/03/16 17:49 11/03/16 23:57 11/04/16 05:37 11/04/16 05:46 Bedside Glucose 166 143 151 White Blood Count 10.4 Red Blood Count 3.16 L Hemoglobin 9.4 L Hematocrit 31.8 L Mean Corpuscular Volume 100.6 Mean Corpuscular Hemoglobin 29.7 Mean Corpuscular Hemoglobin Concent 29.6 L Red Cell Distribution Width 23.5 H Platelet Count 183 Mean Platelet Volume 10.3 Neutrophils % 75.9 Lymphocytes % 14.6 L Monocytes % 6.2 Eosinophils % 1.1 Basophils % 0.3 Nucleated Red Blood Cells % 0.4 H Neutrophils # 7.9 H Lymphocytes # 1.5 Monocytes # 0.7 Eosinophils # 0.1 Basophils # 0.0 Nucleated Red Blood Cells # 0.0 Prothrombin Time 18.8 #H Prothrombin Time Ratio 1.5 INR International Normalized Ratio 1.56 Sodium Level 138 Potassium Level 3.3 L Chloride Level 100 Carbon Dioxide Level 27 Anion Gap 14 Blood Urea Nitrogen 45 #H Creatinine 2.14 H Glucose Level 159 Calcium Level 8.3 L Total Bilirubin 0.3 Direct Bilirubin 0.00 Indirect Bilirubin 0.3 Aspartate Amino Transf (AST/SGOT) 57 H Alanine Aminotransferase (ALT/SGPT) 51 Alkaline Phosphatase 158 H Total Protein 5.8 L Albumin 2.6 L Globulin 3.20 Albumin/Globulin Ratio 0.81 Test 11/04/16 12:26 Bedside Glucose 163 Medications Medications Current Medications Acetaminophen (Tylenol Liquid) 650 mg Q4H PRN NGT PAIN AND OR ELEVATED TEMP Last administered on 09/27/16 05:14; Admin Dose 650 MG; Start 09/21/16 at 02:00 Atorvastatin Calcium (Lipitor) 80 mg HS NGT Last administered on 11/03/16 21: 15; Admin Dose 80 MG; Start 09/22/16 at 21:00 Pantoprazole (Protonix Iv) 40 mg AM IV Last administered on 11/04/16 09:20; Admin Dose 40 MG; Start 09/26/16 at 09:00 Epoetin Raj (Epogen (Esrd)) 10,000 units [facility]@17 SC Last administered on 17:56; Admin Dose 10,000 UNITS; Start 09/26/16 at 17:00 IV Flush (NS 10 ml) 10 ml PRN PRN IV IV PROTOCOL; Start 09/26/16 at 17:30 Morphine Sulfate (morphine) 2 mg Q4H PRN IV PAIN Last administered on 12:10; Admin Dose 2 MG; Start 09/28/16 at 16:00 Dextrose (D50w Syringe) 25 ml Q15M PRN IV DECREASED GLUCOSE Last administered on 11/01/16 21:38; Admin Dose 25 ML; Start 10/09/16 at 20:30 Calcium Carbonate (Tums) 500 mg TID NGT Last administered on 11/04/16 12:52; Admin Dose 500 MG; Start 10/15/16 at 21:00 Metoprolol Tartrate (Lopressor) 25 mg BID PO Last administered on 11/03/16 21: 16; Admin Dose 25 MG; Start 10/20/16 at 21:00 Lactulose (Enulose) 20 gm BID PRN PO CONSTIPATION Last administered on 12:57; Admin Dose 20 GM; Start 10/23/16 at 10:30 Lactobacillus Acidophilus (Florajen3 Capsule) 1 each TID PO Last administered on 11/04/16 12:52; Admin Dose 1 EACH; Start 10/25/16 at 13:30 Ferrous Sulfate (Feosol Liquid Cup) 300 mg TID NGT Last administered on 12:55; Admin Dose 300 MG; Start 10/27/16 at 21:00 Amylase/Lipase/ Protease (CREON ([id number])) 3 cap Q6 NGT Last administered on 11/04/16 12:52; Admin Dose 3 CAP; Start 10/29/16 at 13:00 Escitalopram Oxalate (Lexapro) 10 mg QHS NGT Last administered on 11/03/16 21: 15; Admin Dose 10 MG; Start 10/30/16 at 21:00 Lorazepam (Ativan) 0.5 mg Q6H PRN IV ANXIETY Last administered on 11/03/16 21: 17; Admin Dose 0.5 MG; Start 10/30/16 at 10:30 Guaifenesin (Robitussin Liquid Cup) 200 mg Q6 PO Last administered on 11/04/16 12:55; Admin Dose 200 MG; Start 11/01/16 at 00:00 Latanoprost (Xalatan) 1 drop HS BOTH EYES Last administered on 11/03/16 21:15 ; Admin Dose 1 DROP; Start 10/31/16 at 21:00 Dorzolamide/ Timolol (Cosopt) 1 drop BID BOTH EYES Last administered on 09:19; Admin Dose 1 DROP; Start 10/31/16 at 21:00 Insulin Glargine (Lantus) 16 unit DAILY@09 SC Last administered on 11/04/16 10: 29; Admin Dose 16 UNIT; Start 11/02/16 at 09:00; Status Future hold Pregabalin (Lyrica) 25 mg BID NGT Last administered on 11/04/16 09:20; Admin Dose 25 MG; Start 11/01/16 at 21:00 Insulin Aspart (Novolog Insulin Pen) NOVOLOG *MODERATE* ALGORI... Q6 SC Last administered on 11/04/16 12:42; Admin Dose 2 UNIT; Start 11/03/16 at 18:00 Miscellaneous Information 1 ea NOTE XX ; Start 11/03/16 at 18:00 Glucagon (Glucagen) 1 mg Q15M PRN IM DECREASED GLUCOSE; Start 11/03/16 at 18:00 Glucose (Glutose) 15 gm Q15M PRN BUCCAL DECREASED GLUCOSE; Start 11/03/16 at 18 :00 Warfarin Sodium (Coumadin) 4 mg DAILY@17 GTB ; Start 11/04/16 at 17:00 DAMIR MARTINEZ MD November 04, 2016 13:43
[2016-11-04] MEDS ORDERED: POTASSIUM CHLORIDE 20 MEQ POWDER FOR ORAL SOLN GTB ONE (14:00)
[2016-11-04] MEDS ORDERED: WARFARIN 2 MG TAB GTB SCH (17:00)
--- NOTE | 2016-11-04 17:17 | RADRPT ---
PROCEDURE: XR Chest. CLINICAL INDICATION: Shortness of breath. TECHNIQUE: Single frontal view. COMPARISON: 10/29/2016. FINDINGS: The right internal jugular vein dialysis tunneled catheter and left arm PICC line remain in satisfac tory position. Nasogastric tube has been removed. There is consolidation throughout most of the ri ght lung, slightly worse than seen previously. There is left basilar atelectasis, also worse than s een previously. The heart is enlarged. There is a moderate right pleural effusion and small left pleural effusion, larger than seen previou sly. There is no pneumothorax. IMPRESSION: 1. Worse appearance of the lungs and larger bilateral pleural effusions. Right side is worse than left side. 2. No other change from 10/29/2016. RPTAT: QQ .Arnaldo Back MD, MD Date Time Electronically viewed and signed by .Arnaldo Back MD, MD on 11/04/2016 17:16 .R/
[2016-11-04 19:54] VITALS: BP 100/55; RESP 18
[2016-11-04] MEDS: ESCITALOPRAM 10 MG TAB NGT SCH (20:50)
[2016-11-04] MEDS: ATORVASTATIN 80 MG TAB NGT SCH (20:50)
[2016-11-04] MEDS: LATANOPROST 0.005% 2.5 ML OPH BOTH EYES SCH (20:51)
[2016-11-04] MEDS: ONDANSETRON 4 MG INJ IV PRN (22:52)
[2016-11-04] MEDS ORDERED: METOCLOPRAMIDE 10 MG INJ IV PRN (23:00)
[2016-11-04] MEDS ORDERED: ONDANSETRON 4 MG INJ IV PRN (23:00)
[2016-11-05] VITALS (23 sets, daily range): BP systolic 75–118; BP diastolic 42–62; PULSE 60–85; RESP 11–18
[2016-11-05] MEDS ORDERED: METOCLOPRAMIDE 10 MG INJ IV PRN
[2016-11-05] MEDS ORDERED: METOCLOPRAMIDE 10 MG INJ IV SCH ×2
[2016-11-05] MEDS: GUAIFENESIN 20 MG/ML 5ML CUP PO SCH ×4 (00:55→18:23)
[2016-11-05] MEDS: CREON (12k-38k-60k) 1 CAP NGT SCH ×5 (00:55→21:29)
[2016-11-05] MEDS: ACETYLCYSTEINE 20% 4 ML VIAL NEB SCH ×5 (01:01→20:49)
[2016-11-05] MEDS: LEVALBUTEROL (NEB) 1.25 MG/0.5 ML AMP HHN SCH ×5 (01:01→20:49)
[2016-11-05] MEDS: IPRATROPIUM (NEB) 0.5 MG/2.5 ML AMP HHN SCH ×5 (01:01→20:49)
[2016-11-05 05:42] LABS: ADD SCAN DIFF NO
[2016-11-05 05:49] LABS: ABNORMAL IP MESSAGE 1; BASOPHILS % 0.1 % (0.0-2.0); EOSINOPHILS % 0.2 % (0.0-7.0); HEMATOCRIT 26.3 % (37.0-47.0); HEMOGLOBIN 7.7 g/dl (12.0-16.0); LYMPHOCYTES # 1.3 10^3/ul (0.8-2.9); LYMPHOCYTES % 10.6 % (15.0-51.0); MEAN CORPUSCULAR HEMOGLOBIN 30.1 pg (29.0-33.0); MEAN CORPUSCULAR HGB CONC 29.3 g/dl (32.0-37.0); MEAN CORPUSCULAR VOLUME 102.7 fl (82.0-101.0); MEAN PLATELET VOLUME 10.4 fl (7.4-10.4); MONOCYTE # 0.4 10^3/ul (0.3-0.9); MONOCYTES % 3.4 % (0.0-11.0); NEUTROPHIL # 10.6 10^3/ul (1.6-7.5); NEUTROPHILS % 84.4 % (39.0-77.0); NUCLEATED RED BLOOD CELLS% 0.3 /100WBC (0.0-0.0); PLATELET COUNT 163 10^3/UL (140-415); RED BLOOD COUNT 2.56 10^6/ul (4.20-5.40); WHITE BLOOD COUNT 12.5 10^3/ul (4.8-10.8)
[2016-11-05 06:02] LABS: INR 2.35
[2016-11-05] MEDS: INSULIN ASPART [NOVOLOG] 3 ML PEN SC SCH ×4 (06:12→18:28)
[2016-11-05 06:39] LABS: POTASSIUM 3.1 mmol/L (3.5-5.1)
[2016-11-05 06:41] LABS: CREATININE 1.91 mg/dl (0.44-1.00)
[2016-11-05 06:42] LABS: CALCIUM 6.3 mg/dl (8.4-10.2)
[2016-11-05] MEDS: CALCIUM CARBONATE 500 MG CHEW TAB NGT SCH ×3 (08:01→21:00)
[2016-11-05] MEDS: METOPROLOL 25 MG TAB PO SCH ×2 (08:01→21:00)
[2016-11-05] MEDS ORDERED: POTASSIUM CHLORIDE 20 MEQ POWDER FOR ORAL SOLN GTB ONE (09:00)
[2016-11-05] MEDS: INSULIN GLARGINE [LANtus] 3 ML PEN SC SCH (09:00)
[2016-11-05] MEDS: PANTOPRAZOLE 40 MG INJ IV SCH (09:28)
[2016-11-05] MEDS: PREGABALIN 25 MG CAP NGT SCH (09:29)
[2016-11-05] MEDS: FERROUS SULFATE 60 MG/ML 5ML CUP NGT SCH ×3 (09:29→21:29)
[2016-11-05] MEDS: DORZOLAMIDE/TIMOLOL 10 ML OPH BOTH EYES SCH ×2 (09:33→21:29)
[2016-11-05] MEDS ORDERED: ALBUMIN HUMAN 25% 100 ML IV PRN (11:30)
[2016-11-05 12:03] LABS: HAAIG REFLEX REFLEX FILED
[2016-11-05] MEDS: L ACIDOPHIL/B LACTIS/B LONGUM CAPSULE PO SCH ×3 (12:32→21:00)
[2016-11-05] MEDS: METOCLOPRAMIDE 10 MG INJ IV SCH ×2 (12:33→18:25)
[2016-11-05] MEDS ORDERED: DIPHENHYDRAMINE 50 MG INJ IV ONE (13:00)
[2016-11-05] MEDS ORDERED: ACETAMINOPHEN 325 MG TAB PO ONE (13:00)
[2016-11-05 13:06] LABS: HEPATITIS B CORE ANTIBODY NEGATIVE (NEGATIVE)
--- NOTE | 2016-11-05 13:43 | CONS ---
Date/Time of Note Date/Time of Note DATE: 11/05/16 TIME: 13:36 Assessment/Plan Assessment/Plan Chief Complaint/Hosp Course 1. Acute Renal Failure due to ATN , she is oliguric . She had been having hemodialysis and DUF . She had dry UF today and 2 liters of fluid were removed . I will order hemodialysis for tomorrow . 2. ALOC , she continues to be very weak and lethargic , I discussed with nurse . I will check a serum ammonia level . 3. liver enzyme elevation due to anoxia , enzymes are decreasing . 4. CHF , she continues to have lung congestion and edema . 5. hypocalcemia/hypoalbuminemia , calcium is higher 6. anemia , she has not had any recent GI bleeding . Blood transfusion was ordered . 7. peripheral vascular disease . 8. respiratory failure , off ventilator . 9 dysphagia , she has a PEG ; although she has high residual volumes and tube feeding has been held . . Problems: Consultation Date/Type/Reason Admit Date/Time Sep 20, 2016 at 19:21 Initial Consult Date 09/23/16 Type of Consultation: renal Referring Provider: ZANDRA ROBISON MD, [facility] HR Interval Summary Free Text/Dictation she is lethargic and barely arouses to verbal stimuli . She had run of dry ultrafiltration today . 2 liters were removed . Subjective hx not possible: pt non-verbal Exam/Review of Systems Vital Signs Vitals Vital Signs Date Time Temp Pulse Resp B/P Pulse Ox O2 Delivery O2 Flow Rate FiO2 11/05/16 12:00 67 18 11/05/16 08:58 99 Nasal Cannula 2.0 11/05/16 07:21 98.5 101/55 11/04/16 19:30 21 Intake and Output 11/04/16 11/04/16 11/05/16 15:00 23:00 07:00 Intake Total 0 ml 200 ml Output Total 0 ml Balance 0 ml 200 ml Exam Constitutional: frail, non-verbal Respiratory: clear to auscultation, diminished breath sounds Cardiovascular: edema, regular rate and rhythm Extremities: edema Results Result Diagram: 11/05/16 0525 11/05/16 0525 Results 24 hrs Laboratory Tests Test 11/04/16 19:01 11/05/16 00:54 11/05/16 05:25 11/05/16 06:03 Bedside Glucose 200 140 156 White Blood Count 12.5 #H Red Blood Count 2.56 L Hemoglobin 7.7 L Hematocrit 26.3 L Mean Corpuscular Volume 102.7 H Mean Corpuscular Hemoglobin 30.1 Mean Corpuscular Hemoglobin Concent 29.3 L Red Cell Distribution Width 23.0 H Platelet Count 163 Mean Platelet Volume 10.4 Neutrophils % 84.4 H Lymphocytes % 10.6 L Monocytes % 3.4 Eosinophils % 0.2 Basophils % 0.1 Nucleated Red Blood Cells % 0.3 H Neutrophils # 10.6 H Lymphocytes # 1.3 Monocytes # 0.4 Eosinophils # 0.0 Basophils # 0.0 Nucleated Red Blood Cells # 0.0 Prothrombin Time 26.0 #H Prothrombin Time Ratio 2.0 INR International Normalized Ratio 2.35 Sodium Level 140 Potassium Level 3.1 L Chloride Level 110 # Carbon Dioxide Level 21 Anion Gap 12 Blood Urea Nitrogen 43 H Creatinine 1.91 H Glucose Level 125 Calcium Level 6.3 L Test 11/05/16 08:04 11/05/16 11:15 11/05/16 12:16 Bedside Glucose 170 162 Hepatitis B Surface Antigen NEGATIVE Hepatitis B Core Total Antibody NEGATIVE Hepatitis C Antibody NEGATIVE Medications Medications Current Medications Acetaminophen (Tylenol Liquid) 650 mg Q4H PRN NGT PAIN AND OR ELEVATED TEMP Last administered on 09/27/16 05:14; Admin Dose 650 MG; Start 09/21/16 at 02:00 Atorvastatin Calcium (Lipitor) 80 mg HS NGT Last administered on 11/04/16 20:50 ; Admin Dose 80 MG; Start 09/22/16 at 21:00 Pantoprazole (Protonix Iv) 40 mg AM IV Last administered on 11/05/16 09:28; Admin Dose 40 MG; Start 09/26/16 at 09:00 Epoetin Raj (Epogen (Esrd)) 10,000 units TuThSa@17 SC Last administered on 17:56; Admin Dose 10,000 UNITS; Start 09/26/16 at 17:00 IV Flush (NS 10 ml) 10 ml PRN PRN IV IV PROTOCOL; Start 09/26/16 at 17:30 Morphine Sulfate (morphine) 2 mg Q4H PRN IV PAIN Last administered on 12:10; Admin Dose 2 MG; Start 09/28/16 at 16:00 Dextrose (D50w Syringe) 25 ml Q15M PRN IV DECREASED GLUCOSE Last administered on 11/01/16 21:38; Admin Dose 25 ML; Start 10/09/16 at 20:30 Calcium Carbonate (Tums) 500 mg TID NGT Last administered on 11/05/16 12:32; Admin Dose 500 MG; Start 10/15/16 at 21:00 Metoprolol Tartrate (Lopressor) 25 mg BID PO Last administered on 11/04/16 20: 52; Admin Dose 25 MG; Start 10/20/16 at 21:00 Lactulose (Enulose) 20 gm BID PRN PO CONSTIPATION Last administered on 12:57; Admin Dose 20 GM; Start 10/23/16 at 10:30 Lactobacillus Acidophilus (Florajen3 Capsule) 1 each TID PO Last administered on 11/05/16 12:34; Admin Dose 1 EACH; Start 10/25/16 at 13:30 Ferrous Sulfate (Feosol Liquid Cup) 300 mg TID NGT Last administered on 12:33; Admin Dose 300 MG; Start 10/27/16 at 21:00 Amylase/Lipase/ Protease (CREON ([id number])) 3 cap Q6 NGT Last administered on 11/05/16 12:32; Admin Dose 3 CAP; Start 10/29/16 at 13:00 Escitalopram Oxalate (Lexapro) 10 mg QHS NGT Last administered on 11/04/16 20: 50; Admin Dose 10 MG; Start 10/30/16 at 21:00 Lorazepam (Ativan) 0.5 mg Q6H PRN IV ANXIETY Last administered on 11/03/16 21: 17; Admin Dose 0.5 MG; Start 10/30/16 at 10:30 Guaifenesin (Robitussin Liquid Cup) 200 mg Q6 PO Last administered on 11/05/16 12:33; Admin Dose 200 MG; Start 11/01/16 at 00:00 Latanoprost (Xalatan) 1 drop HS BOTH EYES Last administered on 11/04/16 20:51; Admin Dose 1 DROP; Start 10/31/16 at 21:00 Dorzolamide/ Timolol (Cosopt) 1 drop BID BOTH EYES Last administered on 09:33; Admin Dose 1 DROP; Start 10/31/16 at 21:00 Insulin Glargine (Lantus) 16 unit DAILY@09 SC Last administered on 11/04/16 10: 29; Admin Dose 16 UNIT; Start 11/02/16 at 09:00; Status Future hold Pregabalin (Lyrica) 25 mg BID NGT Last administered on 11/05/16 09:29; Admin Dose 25 MG; Start 11/01/16 at 21:00 Insulin Aspart (Novolog Insulin Pen) NOVOLOG *MODERATE* ALGORI... Q6 SC Last administered on 11/05/16 12:42; Admin Dose 2 UNIT; Start 11/03/16 at 18:00 Miscellaneous Information 1 ea NOTE XX ; Start 11/03/16 at 18:00 Glucagon (Glucagen) 1 mg Q15M PRN IM DECREASED GLUCOSE; Start 11/03/16 at 18:00 Glucose (Glutose) 15 gm Q15M PRN BUCCAL DECREASED GLUCOSE; Start 11/03/16 at 18 :00 Warfarin Sodium (Coumadin) 4 mg DAILY@17 GTB Last administered on 11/04/16 18: 52; Admin Dose 4 MG; Start 11/04/16 at 17:00 Ondansetron HCl (Zofran Inj) 4 mg Q4H PRN IV NAUSEA AND/OR VOMITING Last administered on 11/04/16 22:52; Admin Dose 4 MG; Start 11/04/16 at 23:00 Metoclopramide HCl (Reglan) 5 mg Q6 IV Last administered on 11/05/16 12:33; Admin Dose 5 MG; Start 11/05/16 at 12:00 Furosemide (Lasix) 20 mg ONCE ONCE IV ; Start 11/05/16 at 14:00; Stop 11/05/16 at 14:01 DAMIR MARTINEZ MD November 05, 2016 13:43
[2016-11-05] MEDS ORDERED: FUROSEMIDE 20 MG INJ IV ONE (14:00)
--- NOTE | 2016-11-05 14:29 | PN ---
Date/Time of Note Date/Time of Note DATE: 11/05/16 TIME: 14:20 Assessment/Plan VTE Prophylaxis VTE Prophylaxis Intervention: other (coum) Lines/Catheters IV Catheter Type (from Nrsg): permacath Central line still needed: No Urinary Cath still in place: Yes Reason Cath still needed: terminal illness/intractable pain Assessment/Plan Assessment/Plan 1. AMS--POSS 2NDARY TO LOW BP/ ANEMIA/ CONGESTED LUNGS 2. EFFUSION IN LUNGS DUE TO WEAK COUGHS/ RLD 3. CAD/ PAD/ NOT GOOD ENOUGH PERFUSION/ NEEDING ANTICOAG 4. ARF/ ANEMIA--ON PRN DIALYSIS, BUT FLUID LOAD CONTROL IS VERY LABILE 5. DM--LOW GLUC DUE TO INTERRUPTED FEEDING 6. DEPRESSION-ANXIETY 7. MUSC WEAK/ DYSPHAGIA 8. LOW K ---TRANSFER TO [facility] BED FOR PT REMAINS FULL CODE ---GENTLE FLUID BALANCE WITH DIALYSIS/ DIURETIC/ FEEDING ---TRANSFUSE 1UNIT PRBC TODAY ---COUM 2MG TONIGHT ---REPLACE K ---D/C LANTUS Subjective 24 Hr Interval Summary Free Text/Dictation drowsy, Exam/Review of Systems Vital Signs Vitals Vital Signs Date Time Temp Pulse Resp B/P Pulse Ox O2 Delivery O2 Flow Rate FiO2 11/05/16 12:00 67 18 11/05/16 08:58 99 Nasal Cannula 2.0 11/05/16 07:21 98.5 101/55 11/04/16 19:30 21 Intake and Output 11/04/16 11/04/16 11/05/16 15:00 23:00 07:00 Intake Total 0 ml 200 ml Output Total 0 ml Balance 0 ml 200 ml Exam obese, global edema+ barely arousable, wet gurgling noise in throat hard to hear bs rr bp fluctuant+ PEG residual vol high+, unable to be fed Results Result Diagram: 11/05/16 0525 11/05/16 0525 Results 24 hrs Laboratory Tests Test 11/04/16 19:01 11/05/16 00:54 11/05/16 05:25 11/05/16 06:03 Bedside Glucose 200 140 156 White Blood Count 12.5 #H Red Blood Count 2.56 L Hemoglobin 7.7 L Hematocrit 26.3 L Mean Corpuscular Volume 102.7 H Mean Corpuscular Hemoglobin 30.1 Mean Corpuscular Hemoglobin Concent 29.3 L Red Cell Distribution Width 23.0 H Platelet Count 163 Mean Platelet Volume 10.4 Neutrophils % 84.4 H Lymphocytes % 10.6 L Monocytes % 3.4 Eosinophils % 0.2 Basophils % 0.1 Nucleated Red Blood Cells % 0.3 H Neutrophils # 10.6 H Lymphocytes # 1.3 Monocytes # 0.4 Eosinophils # 0.0 Basophils # 0.0 Nucleated Red Blood Cells # 0.0 Prothrombin Time 26.0 #H Prothrombin Time Ratio 2.0 INR International Normalized Ratio 2.35 Sodium Level 140 Potassium Level 3.1 L Chloride Level 110 # Carbon Dioxide Level 21 Anion Gap 12 Blood Urea Nitrogen 43 H Creatinine 1.91 H Glucose Level 125 Calcium Level 6.3 L Test 11/05/16 08:04 11/05/16 11:15 11/05/16 12:16 Bedside Glucose 170 162 Hepatitis B Surface Antigen NEGATIVE Hepatitis B Core Total Antibody NEGATIVE Hepatitis C Antibody NEGATIVE Medications Medications Current Medications Acetaminophen (Tylenol Liquid) 650 mg Q4H PRN NGT PAIN AND OR ELEVATED TEMP Last administered on 09/27/16 05:14; Admin Dose 650 MG; Start 09/21/16 at 02:00 Atorvastatin Calcium (Lipitor) 80 mg HS NGT Last administered on 11/04/16 20:50 ; Admin Dose 80 MG; Start 09/22/16 at 21:00 Pantoprazole (Protonix Iv) 40 mg AM IV Last administered on 11/05/16 09:28; Admin Dose 40 MG; Start 09/26/16 at 09:00 Epoetin Raj (Epogen (Esrd)) 10,000 units TuThSa@17 SC Last administered on 17:56; Admin Dose 10,000 UNITS; Start 09/26/16 at 17:00 IV Flush (NS 10 ml) 10 ml PRN PRN IV IV PROTOCOL; Start 09/26/16 at 17:30 Morphine Sulfate (morphine) 2 mg Q4H PRN IV PAIN Last administered on 12:10; Admin Dose 2 MG; Start 09/28/16 at 16:00 Dextrose (D50w Syringe) 25 ml Q15M PRN IV DECREASED GLUCOSE Last administered on 11/01/16 21:38; Admin Dose 25 ML; Start 10/09/16 at 20:30 Calcium Carbonate (Tums) 500 mg TID NGT Last administered on 11/05/16 12:32; Admin Dose 500 MG; Start 10/15/16 at 21:00 Metoprolol Tartrate (Lopressor) 25 mg BID PO Last administered on 11/04/16 20: 52; Admin Dose 25 MG; Start 10/20/16 at 21:00 Lactulose (Enulose) 20 gm BID PRN PO CONSTIPATION Last administered on 12:57; Admin Dose 20 GM; Start 10/23/16 at 10:30 Lactobacillus Acidophilus (Florajen3 Capsule) 1 each TID PO Last administered on 11/05/16 12:34; Admin Dose 1 EACH; Start 10/25/16 at 13:30 Ferrous Sulfate (Feosol Liquid Cup) 300 mg TID NGT Last administered on 12:33; Admin Dose 300 MG; Start 10/27/16 at 21:00 Amylase/Lipase/ Protease (CREON ([id number])) 3 cap Q6 NGT Last administered on 11/05/16 12:32; Admin Dose 3 CAP; Start 10/29/16 at 13:00 Escitalopram Oxalate (Lexapro) 10 mg QHS NGT Last administered on 11/04/16 20: 50; Admin Dose 10 MG; Start 10/30/16 at 21:00 Lorazepam (Ativan) 0.5 mg Q6H PRN IV ANXIETY Last administered on 11/03/16 21: 17; Admin Dose 0.5 MG; Start 10/30/16 at 10:30 Guaifenesin (Robitussin Liquid Cup) 200 mg Q6 PO Last administered on 11/05/16 12:33; Admin Dose 200 MG; Start 11/01/16 at 00:00 Latanoprost (Xalatan) 1 drop HS BOTH EYES Last administered on 11/04/16 20:51; Admin Dose 1 DROP; Start 10/31/16 at 21:00 Dorzolamide/ Timolol (Cosopt) 1 drop BID BOTH EYES Last administered on 09:33; Admin Dose 1 DROP; Start 10/31/16 at 21:00 Insulin Glargine (Lantus) 16 unit DAILY@09 SC Last administered on 11/04/16 10: 29; Admin Dose 16 UNIT; Start 11/02/16 at 09:00; Status Future hold Pregabalin (Lyrica) 25 mg BID NGT Last administered on 11/05/16 09:29; Admin Dose 25 MG; Start 11/01/16 at 21:00 Insulin Aspart (Novolog Insulin Pen) NOVOLOG *MODERATE* ALGORI... Q6 SC Last administered on 11/05/16 12:42; Admin Dose 2 UNIT; Start 11/03/16 at 18:00 Miscellaneous Information 1 ea NOTE XX ; Start 11/03/16 at 18:00 Glucagon (Glucagen) 1 mg Q15M PRN IM DECREASED GLUCOSE; Start 11/03/16 at 18:00 Glucose (Glutose) 15 gm Q15M PRN BUCCAL DECREASED GLUCOSE; Start 11/03/16 at 18 :00 Warfarin Sodium (Coumadin) 4 mg DAILY@17 GTB Last administered on 11/04/16 18: 52; Admin Dose 4 MG; Start 11/04/16 at 17:00 Ondansetron HCl (Zofran Inj) 4 mg Q4H PRN IV NAUSEA AND/OR VOMITING Last administered on 11/04/16 22:52; Admin Dose 4 MG; Start 11/04/16 at 23:00 Metoclopramide HCl (Reglan) 5 mg Q6 IV Last administered on 11/05/16 12:33; Admin Dose 5 MG; Start 11/05/16 at 12:00 Furosemide (Lasix) 20 mg ONCE ONCE IV ; Start 11/05/16 at 14:00; Stop 11/05/16 at 14:01 SHAMA LOPEZ MD November 05, 2016 14:29
[2016-11-05] MEDS: EPOETIN 10000 UNITS/1 ML INJ (ESRD) SC SCH (17:00)
[2016-11-05] MEDS ORDERED: WARFARIN 2 MG TAB GTB ONE (17:00)
[2016-11-05 20:29] LABS: AADO2 Arterial 27.6 mmHg (7.0-24.0); Allen Test ACCEPTAB; Arterial Base Excess -2.6 mmol/L (-3.0-3); Arterial COHb 0.5 % (0.0-3.0); Arterial Fraction of Oxyhgb 96.8 % (93.0-99.0); Arterial HCO3 25.2 mmol/L (22.0-26.0); Arterial MetHb 0.6 % (0.0-1.5); MODE NASAL CANNULA
[2016-11-05] MEDS: ESCITALOPRAM 10 MG TAB NGT SCH (21:00)
[2016-11-05] MEDS: ATORVASTATIN 80 MG TAB NGT SCH (21:28)
[2016-11-05] MEDS: LATANOPROST 0.005% 2.5 ML OPH BOTH EYES SCH (21:29)
[2016-11-05 22:34] LABS: AADO2 Arterial 61.9 mmHg (7.0-24.0); Allen Test ACCEPTAB; Arterial COHb 0.4 % (0.0-3.0); Arterial Fraction of Oxyhgb 96.1 % (93.0-99.0); Arterial HCO3 22.9 mmol/L (22.0-26.0); Arterial MetHb 0.4 % (0.0-1.5); Arterial Total Hemglobin 11.2 g/dl (12.0-18.0); Blood Gas IEPAP 16/5; MODE MASK - BIPAP
[2016-11-06] VITALS (49 sets, daily range): BP systolic 90–115; BP diastolic 41–70; PULSE 70–88; RESP 10–20
--- NOTE | 2016-11-06 00:49 | PN ---
Date/Time of Note Date/Time of Note DATE: 11/06/16 TIME: 00:28 Assessment/Plan VTE Prophylaxis VTE Prophylaxis Intervention: other (coumadin) Lines/Catheters IV Catheter Type (from Nrsg): PICC Line (Medications, fluids) Central line still needed: Yes (Hypotension) Urinary Cath still in place: Yes (Hypotension fluid monitoring) Reason Cath still needed: other (indicate) (Urine output monitor) Assessment/Plan Chief Complaint/Hosp Course This is a 71-year-old female with hypotension and somnolence #1 hypotension: Etiology unknown at this time, will give 500 cc fluid bolus, as well as albumin. Patient did have today dialysis and had approximately 2 L diuresed as per nephro. Will continue to monitor this. Continue to monitor blood pressures and consider pressors if needed. Patient's blood pressure did begin to improve once fluids were started. #2 somnolence: Likely secondary to hypotension and current comorbid conditions. ABG shows 7.25 with a CO2 of 58. At the current time patient does appear to be breathing well on her own however we will provide her some respiratory support with BiPAP. Repeat an ABG in an hour. Patient was previously intubated during the hospital stay and will continue to monitor patient's mental status and clinical condition and if necessary we will reintubate. Disposition: Discussed the case with Dr. Neida Chauhan and at the present time based on patient's somnolence as well as hypotension we will observe her closely in the ICU. Transfer orders put in by Dr. pike to medical. Will order CBC and CMP. Continue to monitor blood pressures. Primary care doctor was to be notified by the patient's nurse. Problems: Subjective 24 Hr Interval Summary Free Text/Dictation [employer]: Patient approximately around 8 PM on 11/05/2016 for patient lethargy as well as hypotension. Patient seen and examined at the bedside with the [employer] [facility] team. Patient initially very poorly responsive to verbal stimuli as well as vigorous sternal rub. Throughout the [employer] [employer] patient did appear more awake, the patient was very minimally verbally responsive. Patient did not appear in any apparent distress. Also present at the bedside was Dr. Palencia of nephrology. Exam/Review of Systems Vital Signs Vitals Vital Signs Date Time Temp Pulse Resp B/P Pulse Ox O2 Delivery O2 Flow Rate FiO2 11/05/16 23:45 80 16 101/52 100 11/05/16 23:36 30 11/05/16 23:00 97.8 Nasal Cannula 11/05/16 20:30 2.0 Intake and Output 11/05/16 11/05/16 11/06/16 15:00 23:00 07:00 Intake Total 300 ml Output Total 2400 ml Balance -2100 ml Exam Vitals Temp: 98 pulse 85 blood pressure 75/42 O2 sat 100% on 2 L General: Patient difficult to arouse however during examination patient did subsequently start to awaken as her blood pressure improved. HEENT: Normocephalic atraumatic Cardiovascular: 85 bpm, regular rate rhythm Lungs: Bilateral coarse breath sounds/rales Extremities: Slightly cool to touch of the upper and lower extremities at the distal portions Neuro: Patient appears somnolent, did awake during [employer] [employer] however very poorly responsive verbally Additional Comments ABG: PH: 7.25 CO2 58 PO2 117 bicarb 25 Results Result Diagram: 11/05/16 0525 11/05/16 0525 Results 24 hrs Laboratory Tests Test 11/05/16 00:54 11/05/16 05:25 11/05/16 06:03 11/05/16 08:04 Bedside Glucose 140 156 170 White Blood Count 12.5 #H Red Blood Count 2.56 L Hemoglobin 7.7 L Hematocrit 26.3 L Mean Corpuscular Volume 102.7 H Mean Corpuscular Hemoglobin 30.1 Mean Corpuscular Hemoglobin Concent 29.3 L Red Cell Distribution Width 23.0 H Platelet Count 163 Mean Platelet Volume 10.4 Neutrophils % 84.4 H Lymphocytes % 10.6 L Monocytes % 3.4 Eosinophils % 0.2 Basophils % 0.1 Nucleated Red Blood Cells % 0.3 H Neutrophils # 10.6 H Lymphocytes # 1.3 Monocytes # 0.4 Eosinophils # 0.0 Basophils # 0.0 Nucleated Red Blood Cells # 0.0 Prothrombin Time 26.0 #H Prothrombin Time Ratio 2.0 INR International Normalized Ratio 2.35 Sodium Level 140 Potassium Level 3.1 L Chloride Level 110 # Carbon Dioxide Level 21 Anion Gap 12 Blood Urea Nitrogen 43 H Creatinine 1.91 H Glucose Level 125 Calcium Level 6.3 L Test 11/05/16 11:15 11/05/16 12:16 11/05/16 14:00 11/05/16 17:08 Hepatitis B Surface Antigen NEGATIVE Hepatitis B Core Total Antibody NEGATIVE Hepatitis C Antibody NEGATIVE Bedside Glucose 162 148 Ammonia 61 H Test 11/05/16 20:18 11/05/16 20:23 11/05/16 22:00 Blood Gas Specimen Source Blood arterial Blood arterial Arterial Blood Date Drawn 11/05/2016 8:20:03 PM 11/05/2016 10:25:32 PM Arterial Blood pH (Temp corrected) 7.251 *L 7.280 *L Arterial Blood pCO2 (Temp correct) 58.6 H 49.9 H Arterial Blood pO2 (Temp corrected) 117.4 H 93.4 Arterial Blood HCO3 25.2 22.9 Arterial Blood Base Excess -2.6 -4.0 L Arterial Blood Oxygen Saturation 97.9 96.9 Raz Test ACCEPTAB ACCEPTAB Arterial Blood Gas Puncture Site Right Radial Right Radial Arterial Blood Carboxyhemoglobin 0.5 0.4 Arterial Blood Methemoglobin 0.6 0.4 Blood Gas A-a O2 Differential 27.6 H 61.9 H Oxyhemoglobin Percent 96.8 96.1 Total Hemoglobin 11.0 L 11.2 L Blood Gas Temperature 37.0 37.0 Blood Gas Modality NASAL CANNULA MASK - BIPAP FiO2 30.0 30.0 Blood Gas Critical Value Read Back RAMÍREZ RN Dhruv KILGORE RN Blood Gas Notified Whom MM MM Blood Gas Notified Time 11/05/2016 8:27:16 PM 11/05/2016 10:34:36 PM Bedside Glucose 162 Blood Gas Respiration Rate 16.0 Blood Gas Actual Respiration Rate 20 Blood Gas IPAP/EPAP Ratio 16/5 Medications Medications Current Medications Acetaminophen (Tylenol Liquid) 650 mg Q4H PRN NGT PAIN AND OR ELEVATED TEMP Last administered on 09/27/16 05:14; Admin Dose 650 MG; Start 09/21/16 at 02:00 Atorvastatin Calcium (Lipitor) 80 mg HS NGT Last administered on 11/05/16 21:28 ; Admin Dose 80 MG; Start 09/22/16 at 21:00 Pantoprazole (Protonix Iv) 40 mg AM IV Last administered on 11/05/16 09:28; Admin Dose 40 MG; Start 09/26/16 at 09:00 Epoetin Raj (Epogen (Esrd)) 10,000 units TuThSa@17 SC Last administered on 4/ 29/17at 17:56; Admin Dose 10,000 UNITS; Start 09/26/16 at 17:00 IV Flush (NS 10 ml) 10 ml PRN PRN IV IV PROTOCOL; Start 09/26/16 at 17:30 Morphine Sulfate (morphine) 2 mg Q4H PRN IV PAIN Last administered on 12:10; Admin Dose 2 MG; Start 09/28/16 at 16:00 Dextrose (D50w Syringe) 25 ml Q15M PRN IV DECREASED GLUCOSE Last administered on 11/01/16 21:38; Admin Dose 25 ML; Start 10/09/16 at 20:30 Calcium Carbonate (Tums) 500 mg TID NGT Last administered on 11/05/16 21:00; Admin Dose 500 MG; Start 10/15/16 at 21:00 Metoprolol Tartrate (Lopressor) 25 mg BID PO Last administered on 11/04/16 20: 52; Admin Dose 25 MG; Start 10/20/16 at 21:00 Lactulose (Enulose) 20 gm BID PRN PO CONSTIPATION Last administered on 12:57; Admin Dose 20 GM; Start 10/23/16 at 10:30 Lactobacillus Acidophilus (Florajen3 Capsule) 1 each TID PO Last administered on 11/05/16 21:00; Admin Dose 1 EACH; Start 10/25/16 at 13:30 Ferrous Sulfate (Feosol Liquid Cup) 300 mg TID NGT Last administered on 21:29; Admin Dose 300 MG; Start 10/27/16 at 21:00 Amylase/Lipase/ Protease (CREON (12s-[id number])) 3 cap Q6 NGT Last administered on 11/05/16 21:29; Admin Dose 3 CAP; Start 10/29/16 at 13:00 Escitalopram Oxalate (Lexapro) 10 mg QHS NGT Last administered on 11/04/16 20: 50; Admin Dose 10 MG; Start 10/30/16 at 21:00 Lorazepam (Ativan) 0.5 mg Q6H PRN IV ANXIETY Last administered on 11/03/16 21: 17; Admin Dose 0.5 MG; Start 10/30/16 at 10:30 Guaifenesin (Robitussin Liquid Cup) 200 mg Q6 PO Last administered on 11/05/16 18:23; Admin Dose 200 MG; Start 11/01/16 at 00:00 Latanoprost (Xalatan) 1 drop HS BOTH EYES Last administered on 11/05/16 21:29; Admin Dose 1 DROP; Start 10/31/16 at 21:00 Dorzolamide/ Timolol (Cosopt) 1 drop BID BOTH EYES Last administered on 21:29; Admin Dose 1 DROP; Start 10/31/16 at 21:00 Insulin Aspart (Novolog Insulin Pen) NOVOLOG *MODERATE* ALGORI... Q6 SC Last administered on 11/05/16 18:28; Admin Dose 2 UNIT; Start 11/03/16 at 18:00 Miscellaneous Information 1 ea NOTE XX ; Start 11/03/16 at 18:00 Glucagon (Glucagen) 1 mg Q15M PRN IM DECREASED GLUCOSE; Start 11/03/16 at 18:00 Glucose (Glutose) 15 gm Q15M PRN BUCCAL DECREASED GLUCOSE; Start 11/03/16 at 18 :00 Ondansetron HCl (Zofran Inj) 4 mg Q4H PRN IV NAUSEA AND/OR VOMITING Last administered on 11/04/16 22:52; Admin Dose 4 MG; Start 11/04/16 at 23:00 Metoclopramide HCl (Reglan) 5 mg Q6 IV Last administered on 11/05/16 18:25; Admin Dose 5 MG; Start 11/05/16 at 12:00 CHEKO ARCOS November 06, 2016 00:38
[2016-11-06] MEDS: LEVALBUTEROL (NEB) 1.25 MG/0.5 ML AMP HHN SCH ×4 (01:05→19:28)
[2016-11-06] MEDS: IPRATROPIUM (NEB) 0.5 MG/2.5 ML AMP HHN SCH ×4 (01:06→19:28)
[2016-11-06] MEDS: ACETYLCYSTEINE 20% 4 ML VIAL NEB SCH ×4 (01:06→19:29)
[2016-11-06 01:28] LABS: INR 2.26; PROTIME 25.2 Sec (12.2-14.2)
[2016-11-06] MEDS: INSULIN ASPART [NOVOLOG] 3 ML PEN SC SCH ×4 (01:44→17:55)
[2016-11-06 04:42] LABS: ADD SCAN DIFF NO
[2016-11-06 04:54] LABS: BASOPHILS % 0.2 % (0.0-2.0); EOSINOPHILS # 0.1 10^3/ul (0.0-0.5); EOSINOPHILS % 0.7 % (0.0-7.0); HEMATOCRIT 33.6 % (37.0-47.0); HEMOGLOBIN 9.8 g/dl (12.0-16.0); LYMPHOCYTES # 1.6 10^3/ul (0.8-2.9); LYMPHOCYTES % 13.2 % (15.0-51.0); MEAN CORPUSCULAR HEMOGLOBIN 29.1 pg (29.0-33.0); MEAN CORPUSCULAR HGB CONC 29.2 g/dl (32.0-37.0); MEAN CORPUSCULAR VOLUME 99.7 fl (82.0-101.0); MEAN PLATELET VOLUME 10.3 fl (7.4-10.4); MONOCYTE # 0.6 10^3/ul (0.3-0.9); MONOCYTES % 4.8 % (0.0-11.0); NEUTROPHIL # 9.8 10^3/ul (1.6-7.5); NUCLEATED RED BLOOD CELLS # 0.1 10^3/ul (0.0-0.0); NUCLEATED RED BLOOD CELLS% 0.5 /100WBC (0.0-0.0); PLATELET COUNT 216 10^3/UL (140-415); RED BLOOD COUNT 3.37 10^6/ul (4.20-5.40); RED CELL DISTRIBUTION WIDTH 23.2 % (11.5-14.5); WHITE BLOOD COUNT 12.2 10^3/ul (4.8-10.8)
[2016-11-06 05:11] LABS: ABNORMAL IP MESSAGE 1
[2016-11-06 05:15] LABS: ALBUMIN 2.7 g/dl (3.3-4.9); POTASSIUM 4.8 mmol/L (3.5-5.1)
[2016-11-06 05:18] LABS: ALBUMIN/GLOBULIN RATIO 0.87; BILIRUBIN,INDIRECT 0.2 mg/dl (0-1.1); BILIRUBIN,TOTAL 0.2 mg/dl (0.2-1.3); CREATININE 2.75 mg/dl (0.44-1.00); TOTAL PROTEIN 5.8 g/dl (6.1-8.1)
[2016-11-06 05:19] LABS: CALCIUM 8.4 mg/dl (8.4-10.2)
[2016-11-06] MEDS: GUAIFENESIN 20 MG/ML 5ML CUP PO SCH ×2 (05:46)
[2016-11-06] MEDS: METOCLOPRAMIDE 10 MG INJ IV SCH ×2 (06:15)
[2016-11-06] MEDS: CREON (12k-38k-60k) 1 CAP NGT SCH ×4 (06:15→23:16)
--- NOTE | 2016-11-06 07:54 | CONS ---
Date/Time of Note Date/Time of Note DATE: 11/06/16 TIME: 07:43 Assessment/Plan Assessment/Plan Chief Complaint/Hosp Course 1. Acute Renal Failure due to ATN , she is oliguric . She is now on maintenance hemodialysis . She had dry UF yesterday and 2 liters of fluid were removed . I will order hemodialysis for today . 2. ALOC , she continues to be very weak and lethargic . 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 Consider neurologic re-evaluation . 3. liver enzyme elevation due to anoxia , enzymes are decreasing . 4. CHF , she continues to have lung congestion and peripheral edema . 5. hypocalcemia/hypoalbuminemia , calcium is higher 6. anemia , she has not had any recent GI bleeding . Blood transfusion was given yesterday . 7. peripheral vascular disease . 8. respiratory failure , now on BiPAP . 9 dysphagia , she has a PEG ; although she has high residual volumes . Tube feeding restarted . . Problems: Consultation Date/Type/Reason Admit Date/Time Sep 20, 2016 at 19:21 Initial Consult Date 09/23/16 Type of Consultation: renal Referring Provider: ZANDRA ROBISON [facility] HR Interval Summary Free Text/Dictation Patient is now in the ICU on BiPAP . She became more obtunded and hypotensive last night and was transferred to the ICU . ABG's showed hypercapnia and respiratory acidosis . She is more alert and opens eyes to verbal stimuli . Subjective hx not possible: pt non-verbal Exam/Review of Systems Vital Signs Vitals Vital Signs Date Time Temp Pulse Resp B/P Pulse Ox O2 Delivery O2 Flow Rate FiO2 11/06/16 06:00 83 17 100/49 100 BIPAP 11/06/16 05:08 30 11/06/16 05:00 98.0 11/05/16 20:30 2.0 Intake and Output 11/05/16 11/05/16 11/06/16 15:00 23:00 07:00 Intake Total 300 ml Output Total 2400 ml 100 ml Balance -2100 ml -100 ml Exam Constitutional: frail, non-verbal Respiratory: clear to auscultation, diminished breath sounds Cardiovascular: regular rate and rhythm Gastrointestinal: soft Extremities: edema Results Result Diagram: 11/06/16 0400 11/06/16 0400 Results 24 hrs Laboratory Tests Test 11/05/16 08:04 11/05/16 11:15 11/05/16 12:16 11/05/16 14:00 Bedside Glucose 170 162 Hepatitis B Surface Antigen NEGATIVE Hepatitis B Core Total Antibody NEGATIVE Hepatitis C Antibody NEGATIVE Ammonia 61 H Test 11/05/16 17:08 11/05/16 20:18 11/05/16 20:23 11/05/16 22:00 Bedside Glucose 148 162 Blood Gas Specimen Source Blood arterial Blood arterial Arterial Blood Date Drawn 11/05/2016 8:20:03 PM 11/05/2016 10:25:32 PM Arterial Blood pH (Temp corrected) 7.251 *L 7.280 *L Arterial Blood pCO2 (Temp correct) 58.6 H 49.9 H Arterial Blood pO2 (Temp corrected) 117.4 H 93.4 Arterial Blood HCO3 25.2 22.9 Arterial Blood Base Excess -2.6 -4.0 L Arterial Blood Oxygen Saturation 97.9 96.9 Raz Test ACCEPTAB ACCEPTAB Arterial Blood Gas Puncture Site Right Radial Right Radial Arterial Blood Carboxyhemoglobin 0.5 0.4 Arterial Blood Methemoglobin 0.6 0.4 Blood Gas A-a O2 Differential 27.6 H 61.9 H Oxyhemoglobin Percent 96.8 96.1 Total Hemoglobin 11.0 L 11.2 L Blood Gas Temperature 37.0 37.0 Blood Gas Modality NASAL CANNULA MASK - BIPAP FiO2 30.0 30.0 Blood Gas Critical Value Read Back DAISHA ELMORE RN Blood Gas Notified Whom MM MM Blood Gas Notified Time 11/05/2016 8:27:16 PM 11/05/2016 10:34:36 PM Blood Gas Respiration Rate 16.0 Blood Gas Actual Respiration Rate 20 Blood Gas IPAP/EPAP Ratio 19/11 Test 11/06/16 01:00 11/06/16 01:39 11/06/16 04:00 11/06/16 05:33 Prothrombin Time 25.2 H Prothrombin Time Ratio 2.0 INR International Normalized Ratio 2.26 Bedside Glucose 170 White Blood Count 12.2 H Red Blood Count 3.37 #L Hemoglobin 9.8 #L Hematocrit 33.6 #L Mean Corpuscular Volume 99.7 Mean Corpuscular Hemoglobin 29.1 Mean Corpuscular Hemoglobin Concent 29.2 L Red Cell Distribution Width 23.2 H Platelet Count 216 # Mean Platelet Volume 10.3 Neutrophils % 80.0 H Lymphocytes % 13.2 L Monocytes % 4.8 Eosinophils % 0.7 Basophils % 0.2 Nucleated Red Blood Cells % 0.5 H Neutrophils # 9.8 H Lymphocytes # 1.6 Monocytes # 0.6 Eosinophils # 0.1 Basophils # 0.0 Nucleated Red Blood Cells # 0.1 H Sodium Level 140 Potassium Level 4.8 Chloride Level 103 Carbon Dioxide Level 24 Anion Gap 18 H Blood Urea Nitrogen 57 H Creatinine 2.75 H Glucose Level 153 Calcium Level 8.4 Total Bilirubin 0.2 Direct Bilirubin 0.00 Indirect Bilirubin 0.2 Aspartate Amino Transf (AST/SGOT) 42 Alanine Aminotransferase (ALT/SGPT) 41 Alkaline Phosphatase 147 H Total Protein 5.8 L Albumin 2.7 L Globulin 3.10 Albumin/Globulin Ratio 0.87 Lab Scanned Report BLOOD TRANSFUSION Test 11/06/16 06:16 Bedside Glucose 157 Medications Medications Current Medications Acetaminophen (Tylenol Liquid) 650 mg Q4H PRN NGT PAIN AND OR ELEVATED TEMP Last administered on 09/27/16 05:14; Admin Dose 650 MG; Start 09/21/16 at 02:00 Pantoprazole (Protonix Iv) 40 mg AM IV Last administered on 11/05/16 09:28; Admin Dose 40 MG; Start 09/26/16 at 09:00 Epoetin Raj (Epogen (Esrd)) 10,000 units TuThSa@17 SC Last administered on 17:56; Admin Dose 10,000 UNITS; Start 09/26/16 at 17:00 IV Flush (NS 10 ml) 10 ml PRN PRN IV IV PROTOCOL; Start 09/26/16 at 17:30 Dextrose (D50w Syringe) 25 ml Q15M PRN IV DECREASED GLUCOSE Last administered on 11/01/16 21:38; Admin Dose 25 ML; Start 10/09/16 at 20:30 Calcium Carbonate (Tums) 500 mg TID NGT Last administered on 11/05/16 21:00; Admin Dose 500 MG; Start 10/15/16 at 21:00 Metoprolol Tartrate (Lopressor) 25 mg BID PO Last administered on 11/04/16 20: 52; Admin Dose 25 MG; Start 10/20/16 at 21:00 Lactulose (Enulose) 20 gm BID PRN PO CONSTIPATION Last administered on 12:57; Admin Dose 20 GM; Start 10/23/16 at 10:30 Lactobacillus Acidophilus (Florajen3 Capsule) 1 each TID PO Last administered on 11/05/16 21:00; Admin Dose 1 EACH; Start 10/25/16 at 13:30 Amylase/Lipase/ Protease (CREON (48v-05b-93w)) 3 cap Q6 NGT Last administered on 11/06/16 06:15; Admin Dose 3 CAP; Start 10/29/16 at 13:00 Latanoprost (Xalatan) 1 drop HS BOTH EYES Last administered on 11/05/16 21:29; Admin Dose 1 DROP; Start 10/31/16 at 21:00 Dorzolamide/ Timolol (Cosopt) 1 drop BID BOTH EYES Last administered on 21:29; Admin Dose 1 DROP; Start 10/31/16 at 21:00 Insulin Aspart (Novolog Insulin Pen) NOVOLOG *MODERATE* ALGORI... Q6 SC Last administered on 11/06/16 06:18; Admin Dose 2 UNIT; Start 11/03/16 at 18:00 Miscellaneous Information 1 ea NOTE XX ; Start 11/03/16 at 18:00 Glucagon (Glucagen) 1 mg Q15M PRN IM DECREASED GLUCOSE; Start 11/03/16 at 18:00 Glucose (Glutose) 15 gm Q15M PRN BUCCAL DECREASED GLUCOSE; Start 11/03/16 at 18 :00 Ondansetron HCl (Zofran Inj) 4 mg Q4H PRN IV NAUSEA AND/OR VOMITING Last administered on 11/04/16 22:52; Admin Dose 4 MG; Start 11/04/16 at 23:00 DAMIR MARTINEZ MD November 06, 2016 07:53
[2016-11-06 08:00] LABS: Allen Test ACCEPTAB; Arterial Base Excess -3.3 mmol/L (-3.0-3); Arterial COHb 0.8 % (0.0-3.0); Arterial Fraction of Oxyhgb 96.1 % (93.0-99.0); Arterial HCO3 23.7 mmol/L (22.0-26.0); Arterial MetHb 0.6 % (0.0-1.5); Blood Gas IEPAP 16/5; MODE MASK - BIPAP
--- NOTE | 2016-11-06 08:31 | RADRPT ---
PROCEDURE: XR Chest. CLINICAL INDICATION: History of shortness of breath. TECHNIQUE: Single frontal portable chest was obtained. COMPARISON: 10/08/2016.. FINDINGS: Cardiac silhouette remains mildly enlarged. Pulmonary vasculature appears normal. There is improve d aeration of the right upper lung field. There is persistent hazy opacities in the lung bases. Th ere is an apparent slight increase in the small right pleural effusion. Tunneled catheter on the ri ght is present with the tip at the cavoatrial junction. The patient has been extubated. Nasogastri c tube has been removed. The left-sided PICC line appears unchanged IMPRESSION: 1. Bibasilar hazy opacities which may represent air space consolidation and/or atelectasis. 2. See interval increase in small right pleural effusion. 3. Interval extubation. 4. Placement of a tunneled catheter on the right with the tip at the cavoatrial junction. RPTAT: [facility] Physician Radha Date Time Electronically viewed and signed by Physician Radha on 11/06/2016 08:31 /
[2016-11-06] MEDS: METOPROLOL 25 MG TAB PO SCH ×2 (08:46→21:00)
[2016-11-06] MEDS: DORZOLAMIDE/TIMOLOL 10 ML OPH BOTH EYES SCH ×3 (09:00→23:11)
[2016-11-06] MEDS: PANTOPRAZOLE 40 MG INJ IV SCH (09:24)
[2016-11-06] MEDS: CALCIUM CARBONATE 500 MG CHEW TAB NGT SCH ×3 (09:24→23:11)
[2016-11-06] MEDS: L ACIDOPHIL/B LACTIS/B LONGUM CAPSULE PO SCH ×3 (09:24→23:11)
--- NOTE | 2016-11-06 11:19 | CONS ---
DATE OF ADMISSION: 09/20/2016 DATE OF CONSULTATION: 11/06/2016 TYPE OF CONSULTATION: Pulmonary. HISTORY OF PRESENT ILLNESS: This is a 71-year-old lady well known to me, seen by myself in the past , previously because of cardiac arrest, respiratory failure with prolonged mechanical ventilation, a t that time was safely extubated. She had acute renal injury which resulted in her requiring hemodi alysis. Following extubation, transferred from intensive care unit. The patient had been apparentl y relatively stable on the floor; however, per family discussion, she had been largely somnolent and had significant weakness. Yesterday, she became more altered and more distressed with a drop in bl ood pressure requiring transfer to intensive care unit. Here she was found to be hypercapnic, requi ring initiation of noninvasive positive-pressure ventilation. The patient still remains somnolent a nd arterial blood gases demonstrate worsening hypercapnia despite fairly aggressive noninvasive posi tive-pressure ventilation. PAST MEDICAL HISTORY: 1. Cardiac arrest. 2. Respiratory failure. 3. Congestive cardiac failure. 4. Acute renal failure, now on hemodialysis. 5. Dysphagia with G-tube. MEDICATIONS: Include: 1. Zofran. 2. Insulin. 3. Xopenex 25 mg. 4. Lopressor. ALLERGIES: NONE. SOCIAL HISTORY: Nonsmoker, no alcohol, no history of drug use. FAMILY HISTORY: Noncontributory. REVIEW OF SYSTEMS: A 12-point review of systems negative other than that mentioned above. PHYSICAL EXAMINATION: GENERAL: Elderly-appearing lady, eyes open, but not following commands. VITAL SIGNS: Currently afebrile, pulse is 80, blood pressure 105/46, O2 saturation 96% on 35% FIO2, BiPAP. NECK: JVD is elevated. CARDIAC: S1, S2, A II/ systolic ejection murmur. CHEST: Diminished air entry bilaterally. ABDOMEN: Soft, nontender. No guarding or rebound. EXTREMITIES: No cyanosis, clubbing, 2+ edema. NEUROLOGIC: Generalized weakness. LABORATORY DATA: INR 2.26. BUN 57, creatinine 2.75. ABG: pH 7.28, pCO2 of 50, PaO2 of 104. Ches t x-ray shows moderate right pleural effusion. IMPRESSION AND PLAN: 1. Acute on chronic hypoxemic and hypercapnic respiratory failure, likely secondary to a combinatio n of volume overload, right pleural effusion and alveolar hypoventilation from significant neuromusc ular weakness. 2. History of cardiopulmonary arrest with encephalopathy. 3. Dysphagia with G-tube. 4. Renal failure on hemodialysis. The patient will require: 1. Continue BiPAP settings. I have increased both I and E pressures. 2. Continue hemodialysis as tolerated. 3. Thoracentesis right lung. 4. FFP to correct elevated INR. 5. DVT and GI prophylaxis. DISPOSITION: Continue current ICU care. I had an extensive discussion with family including tammy schwartz at bedside. Apparently, the patient has advanced directive stating she does not want aggressive m anagement. At this point, if her hypercapnia continues to worsen, she will require intubation and m echanical ventilation. Family will discuss goals of care amongst themselves. Dictated By: ZANDRA ASTORGA/JERROD Conf#: [id number] DID#: [id number]
[2016-11-06] MEDS ORDERED: PHYTONADIONE 5 MG in DEXTROSE 5% 50 ML IVPB SCH (11:30)
[2016-11-06 12:01] LABS: Allen Test ACCEPTAB; Arterial Base Excess -3.5 mmol/L (-3.0-3); Arterial COHb 0.1 % (0.0-3.0); Arterial Fraction of Oxyhgb 96.5 % (93.0-99.0); Arterial HCO3 22.1 mmol/L (22.0-26.0); Arterial MetHb 0.6 % (0.0-1.5); Arterial Total Hemglobin 11.4 g/dl (12.0-18.0); Blood Gas IEPAP 20/8; MODE MASK - BIPAP
[2016-11-06 13:30] LABS: ALBUMIN 2.7 g/dl (3.3-4.9)
[2016-11-06 13:32] LABS: ALBUMIN/GLOBULIN RATIO 0.79; BILIRUBIN,INDIRECT 0.2 mg/dl (0-1.1); BILIRUBIN,TOTAL 0.2 mg/dl (0.2-1.3); CREATININE 2.76 mg/dl (0.44-1.00); TOTAL PROTEIN 6.1 g/dl (6.1-8.1)
[2016-11-06 13:33] LABS: CALCIUM 8.4 mg/dl (8.4-10.2)
[2016-11-06] MEDS ORDERED: LIDOCAINE 1% (MPF) 5 ML VIAL ONE (16:24)
--- NOTE | 2016-11-06 17:37 | RADRPT ---
PROCEDURE: Chest Radiograph. CLINICAL INDICATION: Post thoracentesis TECHNIQUE: Single frontal chest radiograph. COMPARISON: Chest radiograph 11/06/2016 FINDINGS: The patient is rotated. Heart size is poorly evaluated. A right chest wall tunneled hemodialysis c atheter and left upper extremity PICC remain in stable position.. There is decreased right pleural fluid and improved aeration of the right lung without evidence of pneumothorax post thoracentesis. L eft basilar pleural / parenchymal disease is unchanged. The bones are intact. IMPRESSION: 1. Decreased right pleural fluid and improved aeration of the right lung without evidence of pneumo thorax post thoracentesis. 2. Otherwise stable radiographic appearance of chest compared to 07:30 a.m. RPTAT: [facility] .Josue Aragon MD, Date Time Electronically viewed and signed by .Josue Aragon MD, MD on 11/06/2016 17:37 .B/
--- NOTE | 2016-11-06 18:30 | RADRPT ---
PROCEDURE: US guided right thoracentesis. CLINICAL INDICATION: Shortness of breath. Right pleural effusion. TECHNIQUE: Prior to the procedure, informed consent was obtained. The risks, benefits, and alternatives were e xplained to the patient or the patient's family, including but not limited to bleeding, infection, p ain, visceral or vascular damage, shock, pneumothorax, chest tube placement, air embolism, and . The patient or the patient's family understood the risks and the alternatives and wished to proce ed with the study. Informed written consent was obtained. A procedural pause was performed. The patient's name, date of , and procedure to be performed were verified. Ultrasound of the right hemithorax was performed in the axial and sagittal planes. A right pleural e ffusion is noted. Utilizing ultrasound guidance, optimal location for entry to the pleural cavity wa s ascertained. The overlying skin was prepped and draped in the usual sterile fashion. Approximate ly 10 ml of 1% Xylocaine was injected locally for pain control. Using ultrasound guidance, a 5-Fren Yueh catheter was introduced into the right pleural space without difficulty. Fluid was aspirated . COMPARISON: None. FINDINGS: Initial ultrasound demonstrates fluid in the right pleural space. Approximately 0.450 liters of ser ous fluid was aspirated and sent to the laboratory. IMPRESSION: 1. Satisfactory ultrasound-guided right thoracentesis. RPTAT: QQ .Arnaldo Back MD, Date Time Electronically viewed and signed by .Arnaldo Back MD, on 11/06/2016 18:29 .R/
[2016-11-06 18:39] LABS: FLUID TOTAL PROTEIN < 2.0 g/dl
[2016-11-06 18:54] LABS: FLUID GLUCOSE 135 mg/dl; FLUID TYPE THORACENTESIS FLUID
[2016-11-06 19:53] LABS: FLUID APPEARANCE HAZY; FLUID TYPE THORACENTHESIS; FLUID WBC'S 139 /cmm
[2016-11-06 19:54] LABS: FLUID RBC EST 1+
--- NOTE | 2016-11-06 20:00 | RADRPT ---
Vent Rate: 83 bpm RR Interval: 0 msec HI Interval: 146 msec QRS Duration: 86 msec QT Interval: 358 msec QTC Interval: 420 msec P-R-T [place]: 48 - 23 - 32 degrees Normal sinus rhythm Low voltage QRS Borderline ECG Electronically Signed By: Flavio Hodge [id number]
[2016-11-06] MEDS: LATANOPROST 0.005% 2.5 ML OPH BOTH EYES SCH (21:00)
[2016-11-06 21:25] LABS: FLUID LYMPHOCYTES 45 %; FLUID MONOCYTES 41 %; FLUID NEUTROPHILS 14 %
[2016-11-07] VITALS (38 sets, daily range): BP systolic 91–118; BP diastolic 45–69; PULSE 76–89; RESP 9–22
[2016-11-07] MEDS: INSULIN ASPART [NOVOLOG] 3 ML PEN SC SCH ×4 (00:02→16:51)
[2016-11-07] MEDS: IPRATROPIUM (NEB) 0.5 MG/2.5 ML AMP HHN SCH ×4 (01:44→20:27)
[2016-11-07] MEDS: LEVALBUTEROL (NEB) 1.25 MG/0.5 ML AMP HHN SCH ×4 (01:44→20:27)
[2016-11-07] MEDS: ACETYLCYSTEINE 20% 4 ML VIAL NEB SCH ×4 (01:44→20:28)
[2016-11-07] MEDS: CREON (12k-38k-60k) 1 CAP NGT SCH ×3 (06:02→16:47)
[2016-11-07 06:13] LABS: ADD SCAN DIFF NO
[2016-11-07 06:27] LABS: ABNORMAL IP MESSAGE 1; BASOPHILS % 0.3 % (0.0-2.0); EOSINOPHILS # 0.1 10^3/ul (0.0-0.5); HEMATOCRIT 33.5 % (37.0-47.0); HEMOGLOBIN 9.8 g/dl (12.0-16.0); LYMPHOCYTES # 1.5 10^3/ul (0.8-2.9); LYMPHOCYTES % 13.4 % (15.0-51.0); MEAN CORPUSCULAR HEMOGLOBIN 29.3 pg (29.0-33.0); MEAN CORPUSCULAR HGB CONC 29.3 g/dl (32.0-37.0); MEAN CORPUSCULAR VOLUME 100.3 fl (82.0-101.0); MEAN PLATELET VOLUME 9.8 fl (7.4-10.4); MONOCYTE # 0.6 10^3/ul (0.3-0.9); MONOCYTES % 4.8 % (0.0-11.0); NEUTROPHILS % 79.2 % (39.0-77.0); NUCLEATED RED BLOOD CELLS # 0.1 10^3/ul (0.0-0.0); NUCLEATED RED BLOOD CELLS% 0.5 /100WBC (0.0-0.0); PLATELET COUNT 137 10^3/UL (140-415); RED BLOOD COUNT 3.34 10^6/ul (4.20-5.40); RED CELL DISTRIBUTION WIDTH 22.7 % (11.5-14.5); WHITE BLOOD COUNT 11.4 10^3/ul (4.8-10.8)
[2016-11-07 06:55] LABS: MAGNESIUM 2.4 mg/dl (1.7-2.5); PHOSPHORUS 3.6 mg/dl (2.5-4.9)
[2016-11-07 07:01] LABS: ALBUMIN 2.9 g/dl (3.3-4.9); ALBUMIN/GLOBULIN RATIO 0.9; BILIRUBIN,INDIRECT 0.2 mg/dl (0-1.1); BILIRUBIN,TOTAL 0.2 mg/dl (0.2-1.3); CALCIUM 8.4 mg/dl (8.4-10.2); CREATININE 2.13 mg/dl (0.44-1.00); POTASSIUM 4.3 mmol/L (3.5-5.1); TOTAL PROTEIN 6.1 g/dl (6.1-8.1)
[2016-11-07 07:49] LABS: AADO2 Arterial 28.6 mmHg (7.0-24.0); Allen Test ACCEPTAB; Arterial Base Excess -1.8 mmol/L (-3.0-3); Arterial COHb 0.8 % (0.0-3.0); Arterial Fraction of Oxyhgb 97.5 % (93.0-99.0); Arterial HCO3 25.1 mmol/L (22.0-26.0); Arterial MetHb 0.5 % (0.0-1.5); Arterial Total Hemglobin 12.1 g/dl (12.0-18.0); MODE NASAL CANNULA
[2016-11-07] MEDS: METOPROLOL 25 MG TAB PO SCH ×2 (09:00→21:00)
--- NOTE | 2016-11-07 09:09 | CONS ---
Date/Time of Note Date/Time of Note DATE: 11/07/16 TIME: 09:04 Assessment/Plan Assessment/Plan Chief Complaint/Hosp Course 1. Acute Renal Failure due to ATN , she is oliguric . She is now on maintenance hemodialysis . She had hemodialysis yesterday . She still has evidence of volume overload and I will order Dry ultrafiltration to try and remove more fluid . 2. ALOC , she continues to be very weak and lethargic . 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 Consider neurologic re-evaluation . 3. liver enzyme elevation due to anoxia , enzymes are decreasing . 4. CHF , she continues to have lung congestion and peripheral edema . 5. hypocalcemia/hypoalbuminemia , calcium is higher 6. anemia , she has not had any recent GI bleeding . Blood transfusion was given and H/H is higher . 7. peripheral vascular disease . 8. respiratory failure , now on simple mask . 9 dysphagia , she has a PEG ; although she has high residual volumes . Tube feeding restarted . . Problems: Consultation Date/Type/Reason Admit Date/Time Sep 20, 2016 at 19:21 Initial Consult Date 09/23/16 Type of Consultation: renal Referring Provider: ZANDRA ROBISON MD, [facility] HR Interval Summary Free Text/Dictation She is in the ICU , she is lethargic but does open her eyes to verbal stimuli . confused . off BiPAP Constitutional: disoriented Exam/Review of Systems Vital Signs Vitals Vital Signs Date Time Temp Pulse Resp B/P Pulse Ox O2 Delivery O2 Flow Rate FiO2 11/07/16 08:35 36 4.0 11/07/16 08:00 80 11/07/16 08:00 97.4 10 101/54 Nasal Cannula 11/06/16 21:10 30 Intake and Output 11/06/16 11/06/16 11/07/16 15:00 23:00 07:00 Intake Total 310 ml 1050 ml 60 ml Output Total 3200 ml Balance 310 ml -2150 ml 60 ml Exam Constitutional: frail, non-verbal, obese Psych: confusion Respiratory: diminished breath sounds, wheezing Cardiovascular: edema, regular rate and rhythm Gastrointestinal: soft Extremities: edema Results Result Diagram: 11/07/16 0600 11/07/16 0600 Results 24 hrs Laboratory Tests Test 11/06/16 10:30 11/06/16 11:30 11/06/16 12:06 11/06/16 13:05 Stool Occult Blood NEGATIVE Blood Gas Specimen Source Blood arterial Arterial Blood Date Drawn 11/06/2016 11:50:45 AM Arterial Blood pH (Temp corrected) 7.339 L Arterial Blood pCO2 (Temp correct) 42.0 Arterial Blood pO2 (Temp corrected) 99.6 Arterial Blood HCO3 22.1 Arterial Blood Base Excess -3.5 L Arterial Blood Oxygen Saturation 97.2 Raz Test ACCEPTAB Arterial Blood Gas Puncture Site Left Radial Arterial Blood Carboxyhemoglobin 0.1 Arterial Blood Methemoglobin 0.6 Blood Gas A-a O2 Differential 65.0 H Oxyhemoglobin Percent 96.5 Total Hemoglobin 11.4 L Blood Gas Temperature 37.0 Blood Gas Respiration Rate 20.0 Blood Gas Actual Respiration Rate 21 Blood Gas Modality MASK - BIPAP FiO2 30.0 Blood Gas IPAP/EPAP Ratio 20/8 Blood Gas Notified Whom JLD Blood Gas Notified Time 11/06/2016 12:01:28 PM Bedside Glucose 152 Sodium Level 138 Potassium Level 5.0 Chloride Level 102 Carbon Dioxide Level 23 Anion Gap 18 H Blood Urea Nitrogen 61 H Creatinine 2.76 H Glucose Level 164 Calcium Level 8.4 Total Bilirubin 0.2 Direct Bilirubin 0.00 Indirect Bilirubin 0.2 Aspartate Amino Transf (AST/SGOT) 43 Alanine Aminotransferase (ALT/SGPT) 37 Alkaline Phosphatase 156 H Total Protein 6.1 Albumin 2.7 L Globulin 3.40 H Albumin/Globulin Ratio 0.79 Test 11/06/16 16:30 11/06/16 17:53 11/07/16 00:00 11/07/16 04:44 Body Fluid Type THORACENTESIS FLUID Body Fluid Volume 450.0 Body Fluid Color YELLOW Body Fluid Appearance HAZY Body Fluid WBC 139 Body Fluid RBC 1+ Body Fluid Neutrophils % 14 Body Fluid Lymphocytes (%) 45 Body Fluid Monocytes % 41 Body Fluid Glucose 135 Body Fluid Total Protein < 2.0 Body Fluid Lactate Dehydrogenase Bedside Glucose 176 154 Lab Scanned Report BLOOD TRANSFUSION Test 11/07/16 06:00 11/07/16 06:06 11/07/16 07:00 White Blood Count 11.4 H Red Blood Count 3.34 L Hemoglobin 9.8 L Hematocrit 33.5 L Mean Corpuscular Volume 100.3 Mean Corpuscular Hemoglobin 29.3 Mean Corpuscular Hemoglobin Concent 29.3 L Red Cell Distribution Width 22.7 H Platelet Count 137 #L Mean Platelet Volume 9.8 Neutrophils % 79.2 H Lymphocytes % 13.4 L Monocytes % 4.8 Eosinophils % 1.0 Basophils % 0.3 Nucleated Red Blood Cells % 0.5 H Neutrophils # 9.0 H Lymphocytes # 1.5 Monocytes # 0.6 Eosinophils # 0.1 Basophils # 0.0 Nucleated Red Blood Cells # 0.1 H Sodium Level 136 Potassium Level 4.3 Chloride Level 102 Carbon Dioxide Level 26 Anion Gap 12 Blood Urea Nitrogen 38 #H Creatinine 2.13 H Glucose Level 183 Calcium Level 8.4 Phosphorus Level 3.6 Magnesium Level 2.4 Total Bilirubin 0.2 Direct Bilirubin 0.00 Indirect Bilirubin 0.2 Aspartate Amino Transf (AST/SGOT) 42 Alanine Aminotransferase (ALT/SGPT) 39 Alkaline Phosphatase 161 H Total Protein 6.1 Albumin 2.9 L Globulin 3.20 Albumin/Globulin Ratio 0.90 Bedside Glucose 169 Blood Gas Specimen Source Blood arterial Arterial Blood Date Drawn 11/07/2016 7:31:30 AM Arterial Blood pH (Temp corrected) 7.305 L Arterial Blood pCO2 (Temp correct) 51.5 H Arterial Blood pO2 (Temp corrected) 146.6 H Arterial Blood HCO3 25.1 Arterial Blood Base Excess -1.8 Arterial Blood Oxygen Saturation 98.8 H Raz Test ACCEPTAB Arterial Blood Gas Puncture Site Left Radial Arterial Blood Carboxyhemoglobin 0.8 Arterial Blood Methemoglobin 0.5 Blood Gas A-a O2 Differential 28.6 H Oxyhemoglobin Percent 97.5 Total Hemoglobin 12.1 Blood Gas Temperature 37.0 Blood Gas Modality NASAL CANNULA FiO2 33.0 Blood Gas Notified Whom JLD Blood Gas Notified Time 11/07/2016 7:49:05 AM Medications Medications Current Medications Acetaminophen (Tylenol Liquid) 650 mg Q4H PRN NGT PAIN AND OR ELEVATED TEMP Last administered on 09/27/16 05:14; Admin Dose 650 MG; Start 09/21/16 at 02:00 Pantoprazole (Protonix Iv) 40 mg AM IV Last administered on 11/06/16 09:24; Admin Dose 40 MG; Start 09/26/16 at 09:00 Epoetin Raj (Epogen (Esrd)) 10,000 units TuThSa@17 SC Last administered on 17:56; Admin Dose 10,000 UNITS; Start 09/26/16 at 17:00 IV Flush (NS 10 ml) 10 ml PRN PRN IV IV PROTOCOL; Start 09/26/16 at 17:30 Dextrose (D50w Syringe) 25 ml Q15M PRN IV DECREASED GLUCOSE Last administered on 11/01/16 21:38; Admin Dose 25 ML; Start 10/09/16 at 20:30 Calcium Carbonate (Tums) 500 mg TID NGT Last administered on 11/06/16 23:11; Admin Dose 500 MG; Start 10/15/16 at 21:00 Metoprolol Tartrate (Lopressor) 25 mg BID PO Last administered on 11/04/16 20: 52; Admin Dose 25 MG; Start 10/20/16 at 21:00 Lactulose (Enulose) 20 gm BID PRN PO CONSTIPATION Last administered on 12:57; Admin Dose 20 GM; Start 10/23/16 at 10:30 Lactobacillus Acidophilus (Florajen3 Capsule) 1 each TID PO Last administered on 11/06/16 23:11; Admin Dose 1 EACH; Start 10/25/16 at 13:30 Amylase/Lipase/ Protease (CREON (18m-[id number]-31v)) 3 cap Q6 NGT Last administered on 11/07/16 06:02; Admin Dose 3 CAP; Start 10/29/16 at 13:00 Latanoprost (Xalatan) 1 drop HS BOTH EYES Last administered on 11/06/16 21:00; Admin Dose 1 DROP; Start 10/31/16 at 21:00 Dorzolamide/ Timolol (Cosopt) 1 drop BID BOTH EYES Last administered on 23:11; Admin Dose 1 DROP; Start 10/31/16 at 21:00 Insulin Aspart (Novolog Insulin Pen) NOVOLOG *MODERATE* ALGORI... Q6 SC Last administered on 11/07/16 06:12; Admin Dose 2 UNIT; Start 11/03/16 at 18:00 Miscellaneous Information 1 ea NOTE XX ; Start 11/03/16 at 18:00 Glucagon (Glucagen) 1 mg Q15M PRN IM DECREASED GLUCOSE; Start 11/03/16 at 18:00 Glucose (Glutose) 15 gm Q15M PRN BUCCAL DECREASED GLUCOSE; Start 11/03/16 at 18 :00 Ondansetron HCl (Zofran Inj) 4 mg Q4H PRN IV NAUSEA AND/OR VOMITING Last administered on 11/04/16t 22:52; Admin Dose 4 MG; Start 11/04/16 at 23:00 Eye Lubricant (Artificial Tears Oph) 2 drop QID BOTH EYES ; Start 11/07/16 at 09: 00; Status UNV DAMIR MARTINEZ MD November 07, 2016 09:09
--- NOTE | 2016-11-07 09:21 | CONS ---
Date/Time of Note Date/Time of Note DATE: 11/07/16 TIME: 09:18 Consult Date/Type/Reason Admit Date/Time Sep 20, 2016 at 19:21 Initial Consult Date 09/23/16 Type of Consultation: Pulmonary ICU Ordering Provider: ZANDRA ROBISON MD, [facility] Subjective Patient underwent thoracentesis yesterday with 450 cc removed from the right lung She is somewhat more alert today off BiPAP Makes eye contact but remains nonverbal Does not follow commands Objective Vital Signs Date Time Temp Pulse Resp B/P Pulse Ox O2 Delivery O2 Flow Rate FiO2 11/07/16 08:35 36 4.0 11/07/16 08:00 80 11/07/16 08:00 97.4 10 101/54 Nasal Cannula 11/06/16 21:10 30 Intake and Output 11/06/16 11/06/16 11/07/16 15:00 23:00 07:00 Intake Total 310 ml 1050 ml 60 ml Output Total 3200 ml Balance 310 ml -2150 ml 60 ml Exam PHYSICAL EXAMINATION: GENERAL: Elderly-appearing lady, eyes open, but not following commands. VITAL SIGNS: As above NECK: JVD is elevated. CARDIAC: S1, S2, A II/ systolic ejection murmur. CHEST: Diminished air entry bilaterally. ABDOMEN: Soft, nontender. No guarding or rebound. EXTREMITIES: No cyanosis, clubbing, 2+ edema. NEUROLOGIC: Generalized weakness. Results/Medications Result Diagram: 11/07/16 0600 11/07/16 0600 Results 24 hrs Laboratory Tests Test 11/06/16 10:30 11/06/16 11:30 11/06/16 12:06 11/06/16 13:05 Stool Occult Blood NEGATIVE Blood Gas Specimen Source Blood arterial Arterial Blood Date Drawn 11/06/2016 11:50:45 AM Arterial Blood pH (Temp corrected) 7.339 L Arterial Blood pCO2 (Temp correct) 42.0 Arterial Blood pO2 (Temp corrected) 99.6 Arterial Blood HCO3 22.1 Arterial Blood Base Excess -3.5 L Arterial Blood Oxygen Saturation 97.2 Raz Test ACCEPTAB Arterial Blood Gas Puncture Site Left Radial Arterial Blood Carboxyhemoglobin 0.1 Arterial Blood Methemoglobin 0.6 Blood Gas A-a O2 Differential 65.0 H Oxyhemoglobin Percent 96.5 Total Hemoglobin 11.4 L Blood Gas Temperature 37.0 Blood Gas Respiration Rate 20.0 Blood Gas Actual Respiration Rate 21 Blood Gas Modality MASK - BIPAP FiO2 30.0 Blood Gas IPAP/EPAP Ratio 20/8 Blood Gas Notified Whom JLD Blood Gas Notified Time 11/06/2016 12:01:28 PM Bedside Glucose 152 Sodium Level 138 Potassium Level 5.0 Chloride Level 102 Carbon Dioxide Level 23 Anion Gap 18 H Blood Urea Nitrogen 61 H Creatinine 2.76 H Glucose Level 164 Calcium Level 8.4 Total Bilirubin 0.2 Direct Bilirubin 0.00 Indirect Bilirubin 0.2 Aspartate Amino Transf (AST/SGOT) 43 Alanine Aminotransferase (ALT/SGPT) 37 Alkaline Phosphatase 156 H Total Protein 6.1 Albumin 2.7 L Globulin 3.40 H Albumin/Globulin Ratio 0.79 Test 11/06/16 16:30 11/06/16 17:53 11/07/16 00:00 11/07/16 04:44 Body Fluid Type THORACENTESIS FLUID Body Fluid Volume 450.0 Body Fluid Color YELLOW Body Fluid Appearance HAZY Body Fluid WBC 139 Body Fluid RBC 1+ Body Fluid Neutrophils % 14 Body Fluid Lymphocytes (%) 45 Body Fluid Monocytes % 41 Body Fluid Glucose 135 Body Fluid Total Protein < 2.0 Body Fluid Lactate Dehydrogenase Bedside Glucose 176 154 Lab Scanned Report BLOOD TRANSFUSION Test 11/07/16 06:00 11/07/16 06:06 11/07/16 07:00 White Blood Count 11.4 H Red Blood Count 3.34 L Hemoglobin 9.8 L Hematocrit 33.5 L Mean Corpuscular Volume 100.3 Mean Corpuscular Hemoglobin 29.3 Mean Corpuscular Hemoglobin Concent 29.3 L Red Cell Distribution Width 22.7 H Platelet Count 137 #L Mean Platelet Volume 9.8 Neutrophils % 79.2 H Lymphocytes % 13.4 L Monocytes % 4.8 Eosinophils % 1.0 Basophils % 0.3 Nucleated Red Blood Cells % 0.5 H Neutrophils # 9.0 H Lymphocytes # 1.5 Monocytes # 0.6 Eosinophils # 0.1 Basophils # 0.0 Nucleated Red Blood Cells # 0.1 H Sodium Level 136 Potassium Level 4.3 Chloride Level 102 Carbon Dioxide Level 26 Anion Gap 12 Blood Urea Nitrogen 38 #H Creatinine 2.13 H Glucose Level 183 Calcium Level 8.4 Phosphorus Level 3.6 Magnesium Level 2.4 Total Bilirubin 0.2 Direct Bilirubin 0.00 Indirect Bilirubin 0.2 Aspartate Amino Transf (AST/SGOT) 42 Alanine Aminotransferase (ALT/SGPT) 39 Alkaline Phosphatase 161 H Total Protein 6.1 Albumin 2.9 L Globulin 3.20 Albumin/Globulin Ratio 0.90 Bedside Glucose 169 Blood Gas Specimen Source Blood arterial Arterial Blood Date Drawn 11/07/2016 7:31:30 AM Arterial Blood pH (Temp corrected) 7.305 L Arterial Blood pCO2 (Temp correct) 51.5 H Arterial Blood pO2 (Temp corrected) 146.6 H Arterial Blood HCO3 25.1 Arterial Blood Base Excess -1.8 Arterial Blood Oxygen Saturation 98.8 H Raz Test ACCEPTAB Arterial Blood Gas Puncture Site Left Radial Arterial Blood Carboxyhemoglobin 0.8 Arterial Blood Methemoglobin 0.5 Blood Gas A-a O2 Differential 28.6 H Oxyhemoglobin Percent 97.5 Total Hemoglobin 12.1 Blood Gas Temperature 37.0 Blood Gas Modality NASAL CANNULA FiO2 33.0 Blood Gas Notified Whom JLD Blood Gas Notified Time 11/07/2016 7:49:05 AM Medications Current Medications Acetaminophen (Tylenol Liquid) 650 mg Q4H PRN NGT PAIN AND OR ELEVATED TEMP Last administered on 09/27/16 05:14; Admin Dose 650 MG; Start 09/21/16 at 02:00 Pantoprazole (Protonix Iv) 40 mg AM IV Last administered on 11/06/16 09:24; Admin Dose 40 MG; Start 09/26/16 at 09:00 Epoetin Raj (Epogen (Esrd)) 10,000 units TuThSa@17 SC Last administered on 17:56; Admin Dose 10,000 UNITS; Start 09/26/16 at 17:00 IV Flush (NS 10 ml) 10 ml PRN PRN IV IV PROTOCOL; Start 09/26/16 at 17:30 Dextrose (D50w Syringe) 25 ml Q15M PRN IV DECREASED GLUCOSE Last administered on 11/01/16 21:38; Admin Dose 25 ML; Start 10/09/16 at 20:30 Calcium Carbonate (Tums) 500 mg TID NGT Last administered on 11/06/16 23:11; Admin Dose 500 MG; Start 10/15/16 at 21:00 Metoprolol Tartrate (Lopressor) 25 mg BID PO Last administered on 11/04/16 20: 52; Admin Dose 25 MG; Start 10/20/16 at 21:00 Lactulose (Enulose) 20 gm BID PRN PO CONSTIPATION Last administered on 12:57; Admin Dose 20 GM; Start 10/23/16 at 10:30 Lactobacillus Acidophilus (Florajen3 Capsule) 1 each TID PO Last administered on 11/06/16 23:11; Admin Dose 1 EACH; Start 10/25/16 at 13:30 Amylase/Lipase/ Protease (CREON (10b-03u-62k)) 3 cap Q6 NGT Last administered on 11/07/16 06:02; Admin Dose 3 CAP; Start 10/29/16 at 13:00 Latanoprost (Xalatan) 1 drop HS BOTH EYES Last administered on 11/06/16 21:00; Admin Dose 1 DROP; Start 10/31/16 at 21:00 Dorzolamide/ Timolol (Cosopt) 1 drop BID BOTH EYES Last administered on 23:11; Admin Dose 1 DROP; Start 10/31/16 at 21:00 Insulin Aspart (Novolog Insulin Pen) NOVOLOG *MODERATE* ALGORI... Q6 SC Last administered on 11/07/16 06:12; Admin Dose 2 UNIT; Start 11/03/16 at 18:00 Miscellaneous Information 1 ea NOTE XX ; Start 11/03/16 at 18:00 Glucagon (Glucagen) 1 mg Q15M PRN IM DECREASED GLUCOSE; Start 11/03/16 at 18:00 Glucose (Glutose) 15 gm Q15M PRN BUCCAL DECREASED GLUCOSE; Start 11/03/16 at 18 :00 Ondansetron HCl (Zofran Inj) 4 mg Q4H PRN IV NAUSEA AND/OR VOMITING Last administered on 11/04/16 22:52; Admin Dose 4 MG; Start 11/04/16 at 23:00 Eye Lubricant (Artificial Tears Oph) 2 drop QID BOTH EYES ; Start 11/07/16 at 09: 00 Assessment/Plan Chief Complaint/Hosp Course IMPRESSION AND PLAN: 1. Acute on chronic hypoxemic and hypercapnic respiratory failure, likely secondary to a combination of volume overload, right pleural effusion and alveolar hypoventilation from significant neuromuscular weakness.Status post thoracentesis right lung 2. History of cardiopulmonary arrest with encephalopathy. 3. Dysphagia with G-tube. 4. Renal failure on hemodialysis. The patient will require: 1. Continue nasal cannula 2. Continue hemodialysis as tolerated. 3. Continue tube feeding 4. DVT and GI prophylaxis Overall prognosis remains guarded Disposition Continue ICU care today Discussed with nephrology team Critical care 40 minutes Problems: ZANDRA ROBISON MD, [facility] November 07, 2016 09:21
[2016-11-07] MEDS: PANTOPRAZOLE 40 MG INJ IV SCH (09:41)
[2016-11-07] MEDS: ARTIFICIAL TEARS 15 ML OPH BOTH EYES SCH ×4 (09:41→21:07)
[2016-11-07] MEDS: CALCIUM CARBONATE 500 MG CHEW TAB NGT SCH ×3 (09:42→21:08)
[2016-11-07] MEDS: L ACIDOPHIL/B LACTIS/B LONGUM CAPSULE PO SCH ×3 (09:42→21:13)
[2016-11-07] MEDS: DORZOLAMIDE/TIMOLOL 10 ML OPH BOTH EYES SCH ×2 (09:43→21:07)
--- NOTE | 2016-11-07 10:11 | RADRPT ---
PROCEDURE: XR Chest. CLINICAL INDICATION: Pneumonia, congestive heart failure TECHNIQUE: Single frontal portable chest was obtained. COMPARISON: 10/08/2016. FINDINGS: Cardiac silhouette is enlarged. Pulmonary vasculature is mildly prominent and there are diffuse int erstitial opacities bilaterally with some Vinny B lines. There is minimal airspace consolidation i n the lower lung fairchild. There is a small right pleural effusion. Left PICC line is unchanged. Th ere is a tunneled catheter present with the tip at the cavoatrial junction. The patient has been ex tubated and the nasogastric tube removed. IMPRESSION: 1. Vascular congestion and interstitial edema appearing slightly worse in the prior study. Early a ir space infiltrates in the lower lung field may reflect edema as well. 3. Small right pleural effusion. RPTAT: [facility] Physician Radha Date Time Electronically viewed and signed by Willem Worthington Physician on 11/07/2016 10:11 MARCELLO/
--- NOTE | 2016-11-07 15:44 | PN ---
Date/Time of Note Date/Time of Note DATE: 11/07/16 TIME: 15:37 Assessment/Plan VTE Prophylaxis VTE Prophylaxis Intervention: other (coum) Lines/Catheters IV Catheter Type (from Nrsg): PICC Line Central line still needed: No Urinary Cath still in place: No Reason Cath still needed: terminal illness/intractable pain Assessment/Plan Assessment/Plan 1. CAD/ PAD/ ANTICOAG 2. IVY W/ EFFUSION--BREATHING BETTER AFTER THORACENTESIS 3. ARF/ EDEMA/ ANEMIA--PRN DIALYSIS 4. ENCEPHALOPATHY/ AMS--MORE AWAKE 5. DM 6. WEAK MUSC/ DYSPHAGIA--VERY SLOW ADV W/ ALEXANDER 7. DEPRESSION-ANXIETY ---PER CARDS ---PULM ---RENAL ---COUM 2MG TONIGHT ---CONT EXTENSIVE SUPPORTIVE CARES ---WILL INC PEG TUBE VOL TOLERATED Subjective 24 Hr Interval Summary Free Text/Dictation opens eyes to commends Exam/Review of Systems Vital Signs Vitals Vital Signs Date Time Temp Pulse Resp B/P Pulse Ox O2 Delivery O2 Flow Rate FiO2 11/07/16 13:20 83 20 11/07/16 13:00 91/69 100 Nasal Cannula 2.0 11/07/16 12:00 97.0 11/07/16 08:35 36 Intake and Output 11/06/16 11/06/16 11/07/16 15:00 23:00 07:00 Intake Total 310 ml 1050 ml 60 ml Output Total 3200 ml Balance 310 ml -2150 ml 60 ml Exam obese+ dec bs+ rr global ext edema+ toes blue black+ Results Result Diagram: 11/07/16 0600 11/07/16 0600 Results 24 hrs Laboratory Tests Test 11/06/16 16:30 11/06/16 17:53 11/07/16 00:00 11/07/16 04:44 Body Fluid Type THORACENTESIS FLUID Body Fluid Volume 450.0 Body Fluid Color YELLOW Body Fluid Appearance HAZY Body Fluid WBC 139 Body Fluid RBC 1+ Body Fluid Neutrophils % 14 Body Fluid Lymphocytes (%) 45 Body Fluid Monocytes % 41 Body Fluid Glucose 135 Body Fluid Total Protein < 2.0 Body Fluid Lactate Dehydrogenase Bedside Glucose 176 154 Lab Scanned Report BLOOD TRANSFUSION Test 11/07/16 06:00 11/07/16 06:06 11/07/16 07:00 11/07/16 12:09 White Blood Count 11.4 H Red Blood Count 3.34 L Hemoglobin 9.8 L Hematocrit 33.5 L Mean Corpuscular Volume 100.3 Mean Corpuscular Hemoglobin 29.3 Mean Corpuscular Hemoglobin Concent 29.3 L Red Cell Distribution Width 22.7 H Platelet Count 137 #L Mean Platelet Volume 9.8 Neutrophils % 79.2 H Lymphocytes % 13.4 L Monocytes % 4.8 Eosinophils % 1.0 Basophils % 0.3 Nucleated Red Blood Cells % 0.5 H Neutrophils # 9.0 H Lymphocytes # 1.5 Monocytes # 0.6 Eosinophils # 0.1 Basophils # 0.0 Nucleated Red Blood Cells # 0.1 H Sodium Level 136 Potassium Level 4.3 Chloride Level 102 Carbon Dioxide Level 26 Anion Gap 12 Blood Urea Nitrogen 38 #H Creatinine 2.13 H Glucose Level 183 Calcium Level 8.4 Phosphorus Level 3.6 Magnesium Level 2.4 Total Bilirubin 0.2 Direct Bilirubin 0.00 Indirect Bilirubin 0.2 Aspartate Amino Transf (AST/SGOT) 42 Alanine Aminotransferase (ALT/SGPT) 39 Alkaline Phosphatase 161 H Total Protein 6.1 Albumin 2.9 L Globulin 3.20 Albumin/Globulin Ratio 0.90 Bedside Glucose 169 181 Blood Gas Specimen Source Blood arterial Arterial Blood Date Drawn 11/07/2016 7:31:30 AM Arterial Blood pH (Temp corrected) 7.305 L Arterial Blood pCO2 (Temp correct) 51.5 H Arterial Blood pO2 (Temp corrected) 146.6 H Arterial Blood HCO3 25.1 Arterial Blood Base Excess -1.8 Arterial Blood Oxygen Saturation 98.8 H Raz Test ACCEPTAB Arterial Blood Gas Puncture Site Left Radial Arterial Blood Carboxyhemoglobin 0.8 Arterial Blood Methemoglobin 0.5 Blood Gas A-a O2 Differential 28.6 H Oxyhemoglobin Percent 97.5 Total Hemoglobin 12.1 Blood Gas Temperature 37.0 Blood Gas Modality NASAL CANNULA FiO2 33.0 Blood Gas Notified Whom JLD Blood Gas Notified Time 11/07/2016 7:49:05 AM Medications Medications Current Medications Acetaminophen (Tylenol Liquid) 650 mg Q4H PRN NGT PAIN AND OR ELEVATED TEMP Last administered on 09/27/16 05:14; Admin Dose 650 MG; Start 09/21/16 at 02:00 Pantoprazole (Protonix Iv) 40 mg AM IV Last administered on 11/07/16 09:41; Admin Dose 40 MG; Start 09/26/16 at 09:00 Epoetin Raj (Epogen (Esrd)) 10,000 units TuThSa@17 SC Last administered on 17:56; Admin Dose 10,000 UNITS; Start 09/26/16 at 17:00 IV Flush (NS 10 ml) 10 ml PRN PRN IV IV PROTOCOL; Start 09/26/16 at 17:30 Dextrose (D50w Syringe) 25 ml Q15M PRN IV DECREASED GLUCOSE Last administered on 11/01/16 21:38; Admin Dose 25 ML; Start 10/09/16 at 20:30 Calcium Carbonate (Tums) 500 mg TID NGT Last administered on 11/07/16 12:10; Admin Dose 500 MG; Start 10/15/16 at 21:00 Metoprolol Tartrate (Lopressor) 25 mg BID PO Last administered on 11/04/16 20: 52; Admin Dose 25 MG; Start 10/20/16 at 21:00 Lactulose (Enulose) 20 gm BID PRN PO CONSTIPATION Last administered on 12:57; Admin Dose 20 GM; Start 10/23/16 at 10:30 Lactobacillus Acidophilus (Florajen3 Capsule) 1 each TID PO Last administered on 11/07/16 12:10; Admin Dose 1 EACH; Start 10/25/16 at 13:30 Amylase/Lipase/ Protease (CREON (12k-38k-60k)) 3 cap Q6 NGT Last administered on 11/07/16 06:02; Admin Dose 3 CAP; Start 10/29/16 at 13:00 Latanoprost (Xalatan) 1 drop HS BOTH EYES Last administered on 11/06/16 21:00; Admin Dose 1 DROP; Start 10/31/16 at 21:00 Dorzolamide/ Timolol (Cosopt) 1 drop BID BOTH EYES Last administered on 09:43; Admin Dose 1 DROP; Start 10/31/16 at 21:00 Insulin Aspart (Novolog Insulin Pen) NOVOLOG *MODERATE* ALGORI... Q6 SC Last administered on 11/07/16 12:16; Admin Dose 4 UNIT; Start 11/03/16 at 18:00 Miscellaneous Information 1 ea NOTE XX ; Start 11/03/16 at 18:00 Glucagon (Glucagen) 1 mg Q15M PRN IM DECREASED GLUCOSE; Start 11/03/16 at 18:00 Glucose (Glutose) 15 gm Q15M PRN BUCCAL DECREASED GLUCOSE; Start 11/03/16 at 18 :00 Ondansetron HCl (Zofran Inj) 4 mg Q4H PRN IV NAUSEA AND/OR VOMITING Last administered on 11/04/16 22:52; Admin Dose 4 MG; Start 11/04/16 at 23:00 Eye Lubricant (Artificial Tears Oph) 2 drop QID BOTH EYES Last administered on 11/07/16 12:10; Admin Dose 2 DROP; Start 11/07/16 at 09:00 SHAMA LOPEZ MD November 07, 2016 15:44
--- NOTE | 2016-11-07 15:53 | PN ---
Date/Time of Note Date/Time of Note DATE: 11/06/16 TIME: 22:46 Assessment/Plan VTE Prophylaxis VTE Prophylaxis Intervention: other (COUM) Lines/Catheters IV Catheter Type (from Nrsg): PICC Line Central line still needed: No Urinary Cath still in place: No Reason Cath still needed: terminal illness/intractable pain Assessment/Plan Assessment/Plan 1. CAD/ FLUCTUANT BP/ PAC/ ANTICOAG 2. IVY/ PULM EFFUSION--AFTER THORACENTESIS 3. ARF/ EDEMA/ ANEMIA--PRN DIALYSIS/ AFTER TRANSFUSION 4. AMS/ ENCEPHALOPATHY 5. DM 6. WEAK MUSC & COUGHS/ DYSPHAGIA 7. ANXIETY DEPRESSION ---PER CARDS ---PER PULM ---PER RENAL ---PER NEURO ---CONT ALL SUPPORTIVE CARES ---REPLACE SUPPS Subjective 24 Hr Interval Summary Free Text/Dictation DROWSY, FROWN TO TACTILE STIMULATION+ SHAMA LOPEZ MD November 07, 2016 15:53
[2016-11-07] MEDS: EPOETIN 10000 UNITS/1 ML INJ (ESRD) SC SCH (16:48)
[2016-11-07] MEDS ORDERED: WARFARIN 2 MG TAB GTB ONE (17:00)
[2016-11-07] MEDS ORDERED: NA PHOSPHATE/BIPHOS 133 ML ENEMA PR PRN (19:00)
[2016-11-07] MEDS ORDERED: NA PHOSPHATE/BIPHOS 133 ML ENEMA PR ONE (19:00)
[2016-11-07] MEDS: LATANOPROST 0.005% 2.5 ML OPH BOTH EYES SCH (21:00)
[2016-11-08] VITALS (35 sets, daily range): BP systolic 91–115; BP diastolic 38–61; PULSE 78–88; RESP 9–21
[2016-11-08] MEDS: INSULIN ASPART [NOVOLOG] 3 ML PEN SC SCH ×5 (00:25→23:36)
[2016-11-08] MEDS: CREON (12k-38k-60k) 1 CAP NGT SCH ×5 (00:30→18:48)
[2016-11-08] MEDS: IPRATROPIUM (NEB) 0.5 MG/2.5 ML AMP HHN SCH ×4 (01:54→20:51)
[2016-11-08] MEDS: ACETYLCYSTEINE 20% 4 ML VIAL NEB SCH (01:55)
[2016-11-08] MEDS: LEVALBUTEROL (NEB) 1.25 MG/0.5 ML AMP HHN SCH ×4 (01:55→20:51)
[2016-11-08 04:45] LABS: ADD SCAN DIFF NO
[2016-11-08 04:53] LABS: ABNORMAL IP MESSAGE 1; BASOPHILS % 0.2 % (0.0-2.0); EOSINOPHILS # 0.1 10^3/ul (0.0-0.5); EOSINOPHILS % 0.8 % (0.0-7.0); HEMATOCRIT 34.8 % (37.0-47.0); HEMOGLOBIN 10.2 g/dl (12.0-16.0); LYMPHOCYTES # 1.8 10^3/ul (0.8-2.9); LYMPHOCYTES % 15.7 % (15.0-51.0); MEAN CORPUSCULAR HEMOGLOBIN 29.7 pg (29.0-33.0); MEAN CORPUSCULAR HGB CONC 29.3 g/dl (32.0-37.0); MEAN CORPUSCULAR VOLUME 101.5 fl (82.0-101.0); MEAN PLATELET VOLUME 10.3 fl (7.4-10.4); MONOCYTE # 0.7 10^3/ul (0.3-0.9); MONOCYTES % 6.1 % (0.0-11.0); NEUTROPHIL # 8.5 10^3/ul (1.6-7.5); NEUTROPHILS % 75.7 % (39.0-77.0); NUCLEATED RED BLOOD CELLS% 0.3 /100WBC (0.0-0.0); PLATELET COUNT 123 10^3/UL (140-415); RED BLOOD COUNT 3.43 10^6/ul (4.20-5.40); RED CELL DISTRIBUTION WIDTH 22.5 % (11.5-14.5); WHITE BLOOD COUNT 11.2 10^3/ul (4.8-10.8)
[2016-11-08 05:05] LABS: CALCIUM 8.7 mg/dl (8.4-10.2); CREATININE 2.24 mg/dl (0.44-1.00); MAGNESIUM 2.4 mg/dl (1.7-2.5); PHOSPHORUS 3.6 mg/dl (2.5-4.9); POTASSIUM 4.1 mmol/L (3.5-5.1)
[2016-11-08 05:18] LABS: INR 1.33; PROTIME 16.6 Sec (12.2-14.2); PT RATIO 1.3
--- NOTE | 2016-11-08 05:57 | RADRPT ---
PROCEDURE: XR Chest. CLINICAL INDICATION: CHF TECHNIQUE: An AP view of the chest was obtained. COMPARISON: X-ray done 11/07/2016 FINDINGS: There is a right chest Perma-Cath with tipnear the cavoatrial junction. There is prominence of the interstitial and central pulmonary vascular markings with small bilatera l pleural effusions. No focal airspace opacification or pneumothorax is seen. The cardiomediastina l silhouette is mildly enlarged . Calcifications are seen within the aortic arch. The osseous stru ctures demonstrate senescent changes. IMPRESSION: 1. Findings suggestive of pulmonary vascular congestion with small bilateral pleural effusions. No significant interval change. 2. Mild cardiomegaly and aortic atherosclerosis. 3. Right chest Perma-Cath with tip near the cavoatrial junction. RPTAT: HH .Ana Salter MD, MD Date Time Electronically viewed and signed by .Ana Salter MD, on 11/08/2016 05:56 .G/
--- NOTE | 2016-11-08 08:08 | CONS ---
Date/Time of Note Date/Time of Note DATE: 11/08/16 TIME: 08:04 Assessment/Plan Assessment/Plan Chief Complaint/Hosp Course 1. Acute Renal Failure due to ATN . She is now on maintenance hemodialysis . She had dry ultrafiltration yesterday . She still has evidence of volume overload and I will order hemodialysis today and try and remove more fluid . 2. ALOC , she continues to be very weak and lethargic . 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 3. liver enzyme elevation due to anoxia , enzymes are decreasing . 4. CHF , she continues to have lung congestion and peripheral edema . 5. hypocalcemia/hypoalbuminemia , calcium is higher 6. anemia , she has not had any recent GI bleeding . Blood transfusion was given and H/H is higher . 7. peripheral vascular disease . 8. respiratory failure , now on nasal canula . 9 dysphagia , she has a PEG ; although she has high residual volumes . Tube feeding restarted . . Problems: Consultation Date/Type/Reason Admit Date/Time Sep 20, 2016 at 19:21 Initial Consult Date 09/23/16 Type of Consultation: Pulmonary ICU Referring Provider: ZANDRA ROBISON MD, [facility] 24 HR Interval Summary Free Text/Dictation She is more awake and responsive today .She is in the ICU . off ventilator and off BiPap Constitutional: no complaints Exam/Review of Systems Vital Signs Vitals Vital Signs Date Time Temp Pulse Resp B/P Pulse Ox O2 Delivery O2 Flow Rate FiO2 11/08/16 06:00 80 12 103/49 100 Nasal Cannula 11/08/16 04:00 98.0 11/08/16 01:50 3.0 30 Intake and Output 11/07/16 11/07/16 11/08/16 15:00 23:00 07:00 Intake Total 670 ml 80 ml 120 ml Output Total 3500 ml Balance -2830 ml 80 ml 120 ml Exam Constitutional: alert Psych: confusion, depression Head: normocephalic Respiratory: clear to auscultation, diminished breath sounds Cardiovascular: edema, regular rate and rhythm Gastrointestinal: soft Extremities: edema Results Result Diagram: 11/08/16 0400 11/08/16 0400 Results 24 hrs Laboratory Tests Test 11/07/16 12:09 11/07/16 16:46 11/08/16 00:21 11/08/16 04:00 Bedside Glucose 181 148 189 White Blood Count 11.2 H Red Blood Count 3.43 L Hemoglobin 10.2 L Hematocrit 34.8 L Mean Corpuscular Volume 101.5 H Mean Corpuscular Hemoglobin 29.7 Mean Corpuscular Hemoglobin Concent 29.3 L Red Cell Distribution Width 22.5 H Platelet Count 123 L Mean Platelet Volume 10.3 Neutrophils % 75.7 Lymphocytes % 15.7 Monocytes % 6.1 Eosinophils % 0.8 Basophils % 0.2 Nucleated Red Blood Cells % 0.3 H Neutrophils # 8.5 H Lymphocytes # 1.8 Monocytes # 0.7 Eosinophils # 0.1 Basophils # 0.0 Nucleated Red Blood Cells # 0.0 Prothrombin Time 16.6 #H Prothrombin Time Ratio 1.3 INR International Normalized Ratio 1.33 Sodium Level 138 Potassium Level 4.1 Chloride Level 103 Carbon Dioxide Level 25 Anion Gap 14 Blood Urea Nitrogen 39 H Creatinine 2.24 H Glucose Level 185 Calcium Level 8.7 Phosphorus Level 3.6 Magnesium Level 2.4 Test 11/08/16 05:53 Bedside Glucose 193 Medications Medications Current Medications Acetaminophen (Tylenol Liquid) 650 mg Q4H PRN NGT PAIN AND OR ELEVATED TEMP Last administered on 09/27/16 05:14; Admin Dose 650 MG; Start 09/21/16 at 02:00 Pantoprazole (Protonix Iv) 40 mg AM IV Last administered on 11/07/16 09:41; Admin Dose 40 MG; Start 09/26/16 at 09:00 Epoetin Raj (Epogen (Esrd)) 10,000 units TuThSa@17 SC Last administered on 11/07 16:48; Admin Dose 10,000 UNITS; Start 09/26/16 at 17:00 IV Flush (NS 10 ml) 10 ml PRN PRN IV IV PROTOCOL; Start 09/26/16 at 17:30 Dextrose (D50w Syringe) 25 ml Q15M PRN IV DECREASED GLUCOSE Last administered on 11/01/16 21:38; Admin Dose 25 ML; Start 10/09/16 at 20:30 Calcium Carbonate (Tums) 500 mg TID NGT Last administered on 11/07/16 21:08; Admin Dose 500 MG; Start 10/15/16 at 21:00 Metoprolol Tartrate (Lopressor) 25 mg BID PO Last administered on 11/04/16 20: 52; Admin Dose 25 MG; Start 10/20/16 at 21:00 Lactulose (Enulose) 20 gm BID PRN PO CONSTIPATION Last administered on 12:57; Admin Dose 20 GM; Start 10/23/16 at 10:30 Lactobacillus Acidophilus (Florajen3 Capsule) 1 each TID PO Last administered on 11/07/16 21:13; Admin Dose 1 EACH; Start 10/25/16 at 13:30 Amylase/Lipase/ Protease (CREON (78p-13p-73k)) 3 cap Q6 NGT Last administered on 11/08/16 00:30; Admin Dose 3 CAP; Start 10/29/16 at 13:00 Latanoprost (Xalatan) 1 drop HS BOTH EYES Last administered on 11/07/16 21:00; Admin Dose 1 DROP; Start 10/31/16 at 21:00 Dorzolamide/ Timolol (Cosopt) 1 drop BID BOTH EYES Last administered on 21:07; Admin Dose 1 DROP; Start 10/31/16 at 21:00 Insulin Aspart (Novolog Insulin Pen) NOVOLOG *MODERATE* ALGORI... Q6 SC Last administered on 11/08/16 05:59; Admin Dose 4 UNIT; Start 11/03/16 at 18:00 Miscellaneous Information 1 ea NOTE XX ; Start 11/03/16 at 18:00 Glucagon (Glucagen) 1 mg Q15M PRN IM DECREASED GLUCOSE; Start 11/03/16 at 18:00 Glucose (Glutose) 15 gm Q15M PRN BUCCAL DECREASED GLUCOSE; Start 11/03/16 at 18 :00 Ondansetron HCl (Zofran Inj) 4 mg Q4H PRN IV NAUSEA AND/OR VOMITING Last administered on 11/04/16 22:52; Admin Dose 4 MG; Start 11/04/16 at 23:00 Eye Lubricant (Artificial Tears Oph) 2 drop QID BOTH EYES Last administered on 11/07/16 21:07; Admin Dose 2 DROP; Start 11/07/16 at 09:00 Sodium Biphosphate/ Sodium Phosphate (Fleet Enema) 133 ml DAILY PRN [place] CONSTIPATION; Start 11/07/16 at 19:00 DAMIR MARTINEZ MD November 08, 2016 08:08
[2016-11-08] MEDS: DORZOLAMIDE/TIMOLOL 10 ML OPH BOTH EYES SCH ×2 (08:40→21:00)
[2016-11-08] MEDS: CALCIUM CARBONATE 500 MG CHEW TAB NGT SCH ×3 (08:40→21:00)
[2016-11-08] MEDS: PANTOPRAZOLE 40 MG INJ IV SCH (08:40)
[2016-11-08] MEDS: ARTIFICIAL TEARS 15 ML OPH BOTH EYES SCH ×4 (08:41→21:00)
[2016-11-08] MEDS: METOPROLOL 25 MG TAB PO SCH ×3 (09:00→21:00)
[2016-11-08] MEDS: L ACIDOPHIL/B LACTIS/B LONGUM CAPSULE PO SCH ×3 (09:51→21:06)
--- NOTE | 2016-11-08 10:27 | CONS ---
Date/Time of Note Date/Time of Note DATE: 11/08/16 TIME: 10:26 Consult Date/Type/Reason Admit Date/Time Sep 20, 2016 at 19:21 Initial Consult Date 09/23/16 Type of Consultation: Pulmonary ICU Ordering Provider: ZANDRA ROBISON MD, [facility] Subjective Patient looks better today continues to slowly improve Less shortness of breath Neurologically improved more alert Objective Vital Signs Date Time Temp Pulse Resp B/P Pulse Ox O2 Delivery O2 Flow Rate FiO2 11/08/16 08:01 97.8 86 14 110/55 100 Nasal Cannula 11/08/16 08:00 2.0 11/08/16 01:50 30 Intake and Output 11/07/16 11/07/16 11/08/16 15:00 23:00 07:00 Intake Total 670 ml 80 ml 120 ml Output Total 3500 ml Balance -2830 ml 80 ml 120 ml Exam PHYSICAL EXAMINATION: GENERAL: Elderly-appearing lady, eyes open, follows simple commands somewhat confused VITAL SIGNS: As above NECK: JVD is elevated. CARDIAC: S1, S2, A II/ systolic ejection murmur. CHEST: Diminished air entry bilaterally. ABDOMEN: Soft, nontender. No guarding or rebound. EXTREMITIES: No cyanosis, clubbing, 2+ edema. NEUROLOGIC: Generalized weakness Results/Medications Result Diagram: 11/08/16 0400 11/08/16 0400 Results 24 hrs Laboratory Tests Test 11/07/16 12:09 11/07/16 16:46 11/08/16 00:21 11/08/16 04:00 Bedside Glucose 181 148 189 White Blood Count 11.2 H Red Blood Count 3.43 L Hemoglobin 10.2 L Hematocrit 34.8 L Mean Corpuscular Volume 101.5 H Mean Corpuscular Hemoglobin 29.7 Mean Corpuscular Hemoglobin Concent 29.3 L Red Cell Distribution Width 22.5 H Platelet Count 123 L Mean Platelet Volume 10.3 Neutrophils % 75.7 Lymphocytes % 15.7 Monocytes % 6.1 Eosinophils % 0.8 Basophils % 0.2 Nucleated Red Blood Cells % 0.3 H Neutrophils # 8.5 H Lymphocytes # 1.8 Monocytes # 0.7 Eosinophils # 0.1 Basophils # 0.0 Nucleated Red Blood Cells # 0.0 Prothrombin Time 16.6 #H Prothrombin Time Ratio 1.3 INR International Normalized Ratio 1.33 Sodium Level 138 Potassium Level 4.1 Chloride Level 103 Carbon Dioxide Level 25 Anion Gap 14 Blood Urea Nitrogen 39 H Creatinine 2.24 H Glucose Level 185 Calcium Level 8.7 Phosphorus Level 3.6 Magnesium Level 2.4 Test 11/08/16 05:53 Bedside Glucose 193 Medications Current Medications Acetaminophen (Tylenol Liquid) 650 mg Q4H PRN NGT PAIN AND OR ELEVATED TEMP Last administered on 09/27/16 05:14; Admin Dose 650 MG; Start 09/21/16 at 02:00 Pantoprazole (Protonix Iv) 40 mg AM IV Last administered on 11/08/16 08:40; Admin Dose 40 MG; Start 09/26/16 at 09:00 Epoetin Raj (Epogen (Esrd)) 10,000 units TuThSa@17 SC Last administered on 11/07 16:48; Admin Dose 10,000 UNITS; Start 09/26/16 at 17:00 IV Flush (NS 10 ml) 10 ml PRN PRN IV IV PROTOCOL; Start 09/26/16 at 17:30 Dextrose (D50w Syringe) 25 ml Q15M PRN IV DECREASED GLUCOSE Last administered on 11/01/16 21:38; Admin Dose 25 ML; Start 10/09/16 at 20:30 Calcium Carbonate (Tums) 500 mg TID NGT Last administered on 11/08/16 08:40; Admin Dose 500 MG; Start 10/15/16 at 21:00 Metoprolol Tartrate (Lopressor) 25 mg BID PO Last administered on 11/04/16 20: 52; Admin Dose 25 MG; Start 10/20/16 at 21:00 Lactulose (Enulose) 20 gm BID PRN PO CONSTIPATION Last administered on 12:57; Admin Dose 20 GM; Start 10/23/16 at 10:30 Lactobacillus Acidophilus (Florajen3 Capsule) 1 each TID PO Last administered on 11/08/16 09:51; Admin Dose 1 EACH; Start 10/25/16 at 13:30 Amylase/Lipase/ Protease (CREON (85j-73k-60k)) 3 cap Q6 NGT Last administered on 11/08/16 00:30; Admin Dose 3 CAP; Start 10/29/16 at 13:00 Latanoprost (Xalatan) 1 drop HS BOTH EYES Last administered on 11/07/16 21:00; Admin Dose 1 DROP; Start 10/31/16 at 21:00 Dorzolamide/ Timolol (Cosopt) 1 drop BID BOTH EYES Last administered on 08:40; Admin Dose 1 DROP; Start 10/31/16 at 21:00 Insulin Aspart (Novolog Insulin Pen) NOVOLOG *MODERATE* ALGORI... Q6 SC Last administered on 11/08/16 05:59; Admin Dose 4 UNIT; Start 11/03/16 at 18:00 Miscellaneous Information 1 ea NOTE XX ; Start 11/03/16 at 18:00 Glucagon (Glucagen) 1 mg Q15M PRN IM DECREASED GLUCOSE; Start 11/03/16 at 18:00 Glucose (Glutose) 15 gm Q15M PRN BUCCAL DECREASED GLUCOSE; Start 11/03/16 at 18 :00 Ondansetron HCl (Zofran Inj) 4 mg Q4H PRN IV NAUSEA AND/OR VOMITING Last administered on 11/04/16 22:52; Admin Dose 4 MG; Start 11/04/16 at 23:00 Eye Lubricant (Artificial Tears Oph) 2 drop QID BOTH EYES Last administered on 11/08/16 08:41; Admin Dose 2 DROP; Start 11/07/16 at 09:00 Sodium Biphosphate/ Sodium Phosphate (Fleet Enema) 133 ml DAILY PRN [place] CONSTIPATION; Start 11/07/16 at 19:00 Assessment/Plan Chief Complaint/Hosp Course IMPRESSION AND PLAN: 1. Acute on chronic hypoxemic and hypercapnic respiratory failure, likely secondary to a combination of volume overload, right pleural effusion and alveolar hypoventilation from significant neuromuscular weakness.Status post thoracentesis right lung 2. History of cardiopulmonary arrest with encephalopathy. 3. Dysphagia with G-tube. 4. Renal failure on hemodialysis. The patient will require: 1. Continue nasal cannula 2. Continue hemodialysis as tolerated. 3. Continue tube feeding 4. DVT and GI prophylaxis Disposition Continue ICU care for today if stable can transfer to telemetry tomorrow Problems: ZANDRA ROBISON MD, [facility] November 08, 2016 10:27
--- NOTE | 2016-11-08 13:13 | PN ---
Date/Time of Note Date/Time of Note DATE: 11/08/16 TIME: 13:07 Assessment/Plan VTE Prophylaxis VTE Prophylaxis Intervention: other (coum) Lines/Catheters IV Catheter Type (from Nrsg): PICC Line Central line still needed: No Urinary Cath still in place: No Reason Cath still needed: terminal illness/intractable pain Assessment/Plan Assessment/Plan 1. cad/ pad/ anticoag--bs stable, on coum 2. ards/ effusion--better oxygenation 3. arf/ edema/ anemia--awaitng prn dialysis 4. dm 5. depression/ anxiety 6. weak musc/ dysphagia--w/ PEG tube feed ---per cards ---per pulm ---per renal ---stay on sliding scale ins ---will slowly inc tube feed vol ---inc coum to 4mg ---tomorrow, out to Tele bed Subjective 24 Hr Interval Summary Free Text/Dictation awake, more alert, cont to be weak Exam/Review of Systems Vital Signs Vitals Vital Signs Date Time Temp Pulse Resp B/P Pulse Ox O2 Delivery O2 Flow Rate FiO2 11/08/16 12:00 97.7 82 11 106/53 99 Nasal Cannula 11/08/16 08:00 2.0 11/08/16 01:50 30 Intake and Output 11/07/16 11/07/16 11/08/16 15:00 23:00 07:00 Intake Total 670 ml 80 ml 150 ml Output Total 3500 ml Balance -2830 ml 80 ml 150 ml Exam in bed w/ o2 nc easier breathing, cont to have dec bs+ rr toes blue black, edema better Results Result Diagram: 11/08/16 0400 11/08/16 0400 Results 24 hrs Laboratory Tests Test 11/07/16 16:46 11/08/16 00:21 11/08/16 04:00 11/08/16 05:53 Bedside Glucose 148 189 193 White Blood Count 11.2 H Red Blood Count 3.43 L Hemoglobin 10.2 L Hematocrit 34.8 L Mean Corpuscular Volume 101.5 H Mean Corpuscular Hemoglobin 29.7 Mean Corpuscular Hemoglobin Concent 29.3 L Red Cell Distribution Width 22.5 H Platelet Count 123 L Mean Platelet Volume 10.3 Neutrophils % 75.7 Lymphocytes % 15.7 Monocytes % 6.1 Eosinophils % 0.8 Basophils % 0.2 Nucleated Red Blood Cells % 0.3 H Neutrophils # 8.5 H Lymphocytes # 1.8 Monocytes # 0.7 Eosinophils # 0.1 Basophils # 0.0 Nucleated Red Blood Cells # 0.0 Prothrombin Time 16.6 #H Prothrombin Time Ratio 1.3 INR International Normalized Ratio 1.33 Sodium Level 138 Potassium Level 4.1 Chloride Level 103 Carbon Dioxide Level 25 Anion Gap 14 Blood Urea Nitrogen 39 H Creatinine 2.24 H Glucose Level 185 Calcium Level 8.7 Phosphorus Level 3.6 Magnesium Level 2.4 Test 11/08/16 12:47 Bedside Glucose 217 Medications Medications Current Medications Acetaminophen (Tylenol Liquid) 650 mg Q4H PRN NGT PAIN AND OR ELEVATED TEMP Last administered on 09/27/16 05:14; Admin Dose 650 MG; Start 09/21/16 at 02:00 Pantoprazole (Protonix Iv) 40 mg AM IV Last administered on 11/08/16 08:40; Admin Dose 40 MG; Start 09/26/16 at 09:00 Epoetin Raj (Epogen (Esrd)) 10,000 units TuThSa@17 SC Last administered on 11/07 16:48; Admin Dose 10,000 UNITS; Start 09/26/16 at 17:00 IV Flush (NS 10 ml) 10 ml PRN PRN IV IV PROTOCOL; Start 09/26/16 at 17:30 Dextrose (D50w Syringe) 25 ml Q15M PRN IV DECREASED GLUCOSE Last administered on 11/01/16 21:38; Admin Dose 25 ML; Start 10/09/16 at 20:30 Calcium Carbonate (Tums) 500 mg TID NGT Last administered on 11/08/16 08:40; Admin Dose 500 MG; Start 10/15/16 at 21:00 Metoprolol Tartrate (Lopressor) 25 mg BID PO Last administered on 11/08/16 09: 00; Admin Dose 25 MG; Start 10/20/16 at 21:00 Lactulose (Enulose) 20 gm BID PRN PO CONSTIPATION Last administered on 12:57; Admin Dose 20 GM; Start 10/23/16 at 10:30 Lactobacillus Acidophilus (Florajen3 Capsule) 1 each TID PO Last administered on 11/08/16 09:51; Admin Dose 1 EACH; Start 10/25/16 at 13:30 Amylase/Lipase/ Protease (CREON (12k-38k-60k)) 3 cap Q6 NGT Last administered on 11/08/16 00:30; Admin Dose 3 CAP; Start 10/29/16 at 13:00 Latanoprost (Xalatan) 1 drop HS BOTH EYES Last administered on 11/07/16 21:00; Admin Dose 1 DROP; Start 10/31/16 at 21:00 Dorzolamide/ Timolol (Cosopt) 1 drop BID BOTH EYES Last administered on 08:40; Admin Dose 1 DROP; Start 10/31/16 at 21:00 Insulin Aspart (Novolog Insulin Pen) NOVOLOG *MODERATE* ALGORI... Q6 SC Last administered on 11/08/16 12:50; Admin Dose 4 UNIT; Start 11/03/16 at 18:00 Miscellaneous Information 1 ea NOTE XX ; Start 11/03/16 at 18:00 Glucagon (Glucagen) 1 mg Q15M PRN IM DECREASED GLUCOSE; Start 11/03/16 at 18:00 Glucose (Glutose) 15 gm Q15M PRN BUCCAL DECREASED GLUCOSE; Start 11/03/16 at 18 :00 Ondansetron HCl (Zofran Inj) 4 mg Q4H PRN IV NAUSEA AND/OR VOMITING Last administered on 11/04/16 22:52; Admin Dose 4 MG; Start 11/04/16 at 23:00 Eye Lubricant (Artificial Tears Oph) 2 drop QID BOTH EYES Last administered on 11/08/16 12:48; Admin Dose 2 DROP; Start 11/07/16 at 09:00 Sodium Biphosphate/ Sodium Phosphate (Fleet Enema) 133 ml DAILY PRN [place] CONSTIPATION; Start 11/07/16 at 19:00 SHAMA LOPEZ MD November 08, 2016 13:12
[2016-11-08] MEDS ORDERED: WARFARIN 2 MG TAB GTB ONE (17:00)
[2016-11-08] MEDS: LATANOPROST 0.005% 2.5 ML OPH BOTH EYES SCH (21:07)
[2016-11-09] VITALS (26 sets, daily range): BP systolic 88–119; BP diastolic 36–55; PULSE 77–90; RESP 9–17
[2016-11-09] MEDS: CREON (12k-38k-60k) 1 CAP NGT SCH ×4 (00:25→17:46)
[2016-11-09] MEDS: LEVALBUTEROL (NEB) 1.25 MG/0.5 ML AMP HHN SCH ×4 (02:28→20:04)
[2016-11-09] MEDS: IPRATROPIUM (NEB) 0.5 MG/2.5 ML AMP HHN SCH ×4 (02:28→20:04)
[2016-11-09 05:05] LABS: ADD SCAN DIFF NO
[2016-11-09 05:09] LABS: BASOPHILS % 0.2 % (0.0-2.0); EOSINOPHILS # 0.2 10^3/ul (0.0-0.5); EOSINOPHILS % 1.4 % (0.0-7.0); HEMATOCRIT 33.3 % (37.0-47.0); HEMOGLOBIN 9.8 g/dl (12.0-16.0); LYMPHOCYTES # 2.1 10^3/ul (0.8-2.9); LYMPHOCYTES % 17.5 % (15.0-51.0); MEAN CORPUSCULAR HEMOGLOBIN 29.5 pg (29.0-33.0); MEAN CORPUSCULAR HGB CONC 29.4 g/dl (32.0-37.0); MEAN CORPUSCULAR VOLUME 100.3 fl (82.0-101.0); MEAN PLATELET VOLUME 10.2 fl (7.4-10.4); MONOCYTE # 0.7 10^3/ul (0.3-0.9); MONOCYTES % 5.9 % (0.0-11.0); NEUTROPHIL # 8.6 10^3/ul (1.6-7.5); NEUTROPHILS % 73.4 % (39.0-77.0); NUCLEATED RED BLOOD CELLS% 0.3 /100WBC (0.0-0.0); PLATELET COUNT 107 10^3/UL (140-415); RED BLOOD COUNT 3.32 10^6/ul (4.20-5.40); RED CELL DISTRIBUTION WIDTH 21.6 % (11.5-14.5); WHITE BLOOD COUNT 11.8 10^3/ul (4.8-10.8)
[2016-11-09] MEDS: ACETAMINOPHEN 650MG/20.3ML CUP NGT PRN ×2 (05:12→11:10)
[2016-11-09 05:27] LABS: ALBUMIN 2.7 g/dl (3.3-4.9); ALBUMIN/GLOBULIN RATIO 0.81; BILIRUBIN,INDIRECT 0.3 mg/dl (0-1.1); BILIRUBIN,TOTAL 0.3 mg/dl (0.2-1.3); CALCIUM 8.4 mg/dl (8.4-10.2); CREATININE 1.9 mg/dl (0.44-1.00); POTASSIUM 3.9 mmol/L (3.5-5.1)
[2016-11-09 05:34] LABS: INR 1.6; PROTIME 19.2 Sec (12.2-14.2); PT RATIO 1.5
[2016-11-09] MEDS: INSULIN ASPART [NOVOLOG] 3 ML PEN SC SCH ×3 (05:35→17:48)
[2016-11-09] MEDS: METOPROLOL 25 MG TAB PO SCH ×2 (09:00→20:43)
--- NOTE | 2016-11-09 09:07 | CONS ---
Date/Time of Note Date/Time of Note DATE: 11/09/16 TIME: 09:06 Consult Date/Type/Reason Admit Date/Time Sep 20, 2016 at 19:21 Initial Consult Date 09/23/16 Type of Consultation: Pulmonary ICU Ordering Provider: ZANDRA ROBISON MD, [facility] Subjective Patient more lethargic today still somewhat confused. Currently hemodynamically stable. Objective Vital Signs Date Time Temp Pulse Resp B/P Pulse Ox O2 Delivery O2 Flow Rate FiO2 11/09/16 08:00 83 11/09/16 08:00 99.0 9 106/48 95 Room Air 11/09/16 05:31 3.0 11/09/16 02:31 32 Intake and Output 11/08/16 11/08/16 11/09/16 15:00 23:00 07:00 Intake Total 250 ml 610 ml 140 ml Output Total 2500 ml 0 ml Balance 250 ml -1890 ml 140 ml Exam PHYSICAL EXAMINATION: GENERAL: Elderly-appearing lady, eyes open, follows simple commands somewhat confused VITAL SIGNS: As above NECK: JVD is elevated. CARDIAC: S1, S2, A II/ systolic ejection murmur. CHEST: Diminished air entry bilaterally. ABDOMEN: Soft, nontender. No guarding or rebound. EXTREMITIES: No cyanosis, clubbing, 2+ edema. NEUROLOGIC: Generalized weakness Results/Medications Result Diagram: 11/09/16 0455 11/09/16 0455 Results 24 hrs Chest x-ray Mild pulmonary edema Laboratory Tests Test 11/08/16 12:47 11/08/16 17:32 11/08/16 23:32 11/09/16 04:55 Bedside Glucose 217 218 173 White Blood Count 11.8 H Red Blood Count 3.32 L Hemoglobin 9.8 L Hematocrit 33.3 L Mean Corpuscular Volume 100.3 Mean Corpuscular Hemoglobin 29.5 Mean Corpuscular Hemoglobin Concent 29.4 L Red Cell Distribution Width 21.6 H Platelet Count 107 L Mean Platelet Volume 10.2 Neutrophils % 73.4 Lymphocytes % 17.5 Monocytes % 5.9 Eosinophils % 1.4 Basophils % 0.2 Nucleated Red Blood Cells % 0.3 H Neutrophils # 8.6 H Lymphocytes # 2.1 Monocytes # 0.7 Eosinophils # 0.2 Basophils # 0.0 Nucleated Red Blood Cells # 0.0 Prothrombin Time 19.2 H Prothrombin Time Ratio 1.5 INR International Normalized Ratio 1.60 Sodium Level 133 L Potassium Level 3.9 Chloride Level 99 Carbon Dioxide Level 26 Anion Gap 12 Blood Urea Nitrogen 30 H Creatinine 1.90 H Glucose Level 267 H Calcium Level 8.4 Total Bilirubin 0.3 Direct Bilirubin 0.00 Indirect Bilirubin 0.3 Aspartate Amino Transf (AST/SGOT) 30 Alanine Aminotransferase (ALT/SGPT) 39 Alkaline Phosphatase 173 H Total Protein 6.0 L Albumin 2.7 L Globulin 3.30 H Albumin/Globulin Ratio 0.81 Test 11/09/16 05:29 Bedside Glucose 274 H Medications Current Medications Acetaminophen (Tylenol Liquid) 650 mg Q4H PRN NGT PAIN AND OR ELEVATED TEMP Last administered on 11/09/16 05:12; Admin Dose 650 MG; Start 09/21/16 at 02:00 Pantoprazole (Protonix Iv) 40 mg AM IV Last administered on 11/08/16 08:40; Admin Dose 40 MG; Start 09/26/16 at 09:00 Epoetin Raj (Epogen (Esrd)) 10,000 units TuThSa@17 SC Last administered on 11/07 16:48; Admin Dose 10,000 UNITS; Start 09/26/16 at 17:00 IV Flush (NS 10 ml) 10 ml PRN PRN IV IV PROTOCOL; Start 09/26/16 at 17:30 Dextrose (D50w Syringe) 25 ml Q15M PRN IV DECREASED GLUCOSE Last administered on 11/01/16 21:38; Admin Dose 25 ML; Start 10/09/16 at 20:30 Calcium Carbonate (Tums) 500 mg TID NGT Last administered on 11/08/16 21:00; Admin Dose 500 MG; Start 10/15/16 at 21:00 Metoprolol Tartrate (Lopressor) 25 mg BID PO Last administered on 11/04/16 20: 52; Admin Dose 25 MG; Start 10/20/16 at 21:00 Lactulose (Enulose) 20 gm BID PRN PO CONSTIPATION Last administered on 12:57; Admin Dose 20 GM; Start 10/23/16 at 10:30 Lactobacillus Acidophilus (Florajen3 Capsule) 1 each TID PO Last administered on 11/08/16 21:06; Admin Dose 1 EACH; Start 10/25/16 at 13:30 Amylase/Lipase/ Protease (CREON (12k-38k-60k)) 3 cap Q6 NGT Last administered on 11/09/16 05:32; Admin Dose 3 CAP; Start 10/29/16 at 13:00 Latanoprost (Xalatan) 1 drop HS BOTH EYES Last administered on 11/08/16 21:07; Admin Dose 1 DROP; Start 10/31/16 at 21:00 Dorzolamide/ Timolol (Cosopt) 1 drop BID BOTH EYES Last administered on 21:00; Admin Dose 1 DROP; Start 10/31/16 at 21:00 Insulin Aspart (Novolog Insulin Pen) NOVOLOG *MODERATE* ALGORI... Q6 SC Last administered on 11/09/16 05:35; Admin Dose 8 UNIT; Start 11/03/16 at 18:00 Miscellaneous Information 1 ea NOTE XX ; Start 11/03/16 at 18:00 Glucagon (Glucagen) 1 mg Q15M PRN IM DECREASED GLUCOSE; Start 11/03/16 at 18:00 Glucose (Glutose) 15 gm Q15M PRN BUCCAL DECREASED GLUCOSE; Start 11/03/16 at 18 :00 Ondansetron HCl (Zofran Inj) 4 mg Q4H PRN IV NAUSEA AND/OR VOMITING Last administered on 11/04/16 22:52; Admin Dose 4 MG; Start 11/04/16 at 23:00 Eye Lubricant (Artificial Tears Oph) 2 drop QID BOTH EYES Last administered on 11/08/16 21:00; Admin Dose 2 DROP; Start 11/07/16 at 09:00 Sodium Biphosphate/ Sodium Phosphate (Fleet Enema) 133 ml DAILY PRN [place] CONSTIPATION; Start 11/07/16 at 19:00 Assessment/Plan Chief Complaint/Hosp Course IMPRESSION AND PLAN: 1. Acute on chronic hypoxemic and hypercapnic respiratory failure, likely secondary to a combination of volume overload, right pleural effusion and alveolar hypoventilation from significant neuromuscular weakness.Status post thoracentesis right lung 2. History of cardiopulmonary arrest with encephalopathy. 3. Dysphagia with G-tube. 4. Renal failure on hemodialysis. The patient will require: 1. Continue nasal cannula 2. Continue hemodialysis as tolerated. 3. Continue tube feeding 4. DVT and GI prophylaxis Disposition Continue ICU care Palliative care input, I would recommend patient CODE STATUS be changed to DNR and she is a high likelihood of reintubation which was not consistent with her prior wishes. Reintubation would result and need for tracheostomy. Problems: ZANDRA ROBISON MD, [facility] November 09, 2016 09:07
[2016-11-09] MEDS: ARTIFICIAL TEARS 15 ML OPH BOTH EYES SCH ×4 (09:20→20:44)
[2016-11-09] MEDS: DORZOLAMIDE/TIMOLOL 10 ML OPH BOTH EYES SCH ×2 (09:20→20:44)
[2016-11-09] MEDS: PANTOPRAZOLE 40 MG INJ IV SCH (09:20)
[2016-11-09] MEDS: CALCIUM CARBONATE 500 MG CHEW TAB NGT SCH ×3 (09:20→21:00)
[2016-11-09] MEDS: L ACIDOPHIL/B LACTIS/B LONGUM CAPSULE PO SCH ×3 (09:32→20:43)
--- NOTE | 2016-11-09 09:49 | CONS ---
Date/Time of Note Date/Time of Note DATE: 11/09/16 TIME: 09:39 Assessment/Plan Assessment/Plan Additional Assessment/Plan 1. ARF, now dialysis dependent, will HD tomm. 2. Impaired cognition, labs rev 3. Vasc insuff lower extrem noted. Consultation Date/Type/Reason Admit Date/Time Sep 20, 2016 at 19:21 Initial Consult Date 09/23/16 Type of Consultation: Pulmonary ICU Referring Provider: [facility] ROBISON MD, [facility] Detailed Summary Respiratory: No shortness of breath Cardiovascular: No chest pain Gastrointestinal: no complaints Neurologic: other (confused) Exam/Review of Systems Vital Signs Vitals Vital Signs Date Time Temp Pulse Resp B/P Pulse Ox O2 Delivery O2 Flow Rate FiO2 11/09/16 08:00 83 11/09/16 08:00 99.0 9 106/48 95 Room Air 11/09/16 05:31 3.0 11/09/16 02:31 32 Intake and Output 11/08/16 11/08/16 11/09/16 15:00 23:00 07:00 Intake Total 250 ml 610 ml 140 ml Output Total 2500 ml 0 ml Balance 250 ml -1890 ml 140 ml Exam Neck: No jvd Respiratory: diminished breath sounds Gastrointestinal: soft Extremities: edema (1+ sacral edema) Results Result Diagram: 11/09/16 0455 11/09/16 0455 Results 24 hrs Laboratory Tests Test 11/08/16 12:47 11/08/16 17:32 11/08/16 23:32 11/09/16 04:55 Bedside Glucose 217 218 173 White Blood Count 11.8 H Red Blood Count 3.32 L Hemoglobin 9.8 L Hematocrit 33.3 L Mean Corpuscular Volume 100.3 Mean Corpuscular Hemoglobin 29.5 Mean Corpuscular Hemoglobin Concent 29.4 L Red Cell Distribution Width 21.6 H Platelet Count 107 L Mean Platelet Volume 10.2 Neutrophils % 73.4 Lymphocytes % 17.5 Monocytes % 5.9 Eosinophils % 1.4 Basophils % 0.2 Nucleated Red Blood Cells % 0.3 H Neutrophils # 8.6 H Lymphocytes # 2.1 Monocytes # 0.7 Eosinophils # 0.2 Basophils # 0.0 Nucleated Red Blood Cells # 0.0 Prothrombin Time 19.2 H Prothrombin Time Ratio 1.5 INR International Normalized Ratio 1.60 Sodium Level 133 L Potassium Level 3.9 Chloride Level 99 Carbon Dioxide Level 26 Anion Gap 12 Blood Urea Nitrogen 30 H Creatinine 1.90 H Glucose Level 267 H Calcium Level 8.4 Total Bilirubin 0.3 Direct Bilirubin 0.00 Indirect Bilirubin 0.3 Aspartate Amino Transf (AST/SGOT) 30 Alanine Aminotransferase (ALT/SGPT) 39 Alkaline Phosphatase 173 H Total Protein 6.0 L Albumin 2.7 L Globulin 3.30 H Albumin/Globulin Ratio 0.81 Test 11/09/16 05:29 Bedside Glucose 274 H Medications Medications Current Medications Acetaminophen (Tylenol Liquid) 650 mg Q4H PRN NGT PAIN AND OR ELEVATED TEMP Last administered on 11/09/16 05:12; Admin Dose 650 MG; Start 09/21/16 at 02:00 Pantoprazole (Protonix Iv) 40 mg AM IV Last administered on 11/09/16 09:20; Admin Dose 40 MG; Start 09/26/16 at 09:00 Epoetin Raj (Epogen (Esrd)) 10,000 units TuThSa@17 SC Last administered on 11/07 16:48; Admin Dose 10,000 UNITS; Start 09/26/16 at 17:00 IV Flush (NS 10 ml) 10 ml PRN PRN IV IV PROTOCOL; Start 09/26/16 at 17:30 Dextrose (D50w Syringe) 25 ml Q15M PRN IV DECREASED GLUCOSE Last administered on 11/01/16 21:38; Admin Dose 25 ML; Start 10/09/16 at 20:30 Calcium Carbonate (Tums) 500 mg TID NGT Last administered on 11/09/16 09:20; Admin Dose 500 MG; Start 10/15/16 at 21:00 Metoprolol Tartrate (Lopressor) 25 mg BID PO Last administered on 11/04/16 20: 52; Admin Dose 25 MG; Start 10/20/16 at 21:00 Lactulose (Enulose) 20 gm BID PRN PO CONSTIPATION Last administered on 12:57; Admin Dose 20 GM; Start 10/23/16 at 10:30 Lactobacillus Acidophilus (Florajen3 Capsule) 1 each TID PO Last administered on 11/09/16 09:32; Admin Dose 1 EACH; Start 10/25/16 at 13:30 Amylase/Lipase/ Protease (CREON (12k-38k-60k)) 3 cap Q6 NGT Last administered on 11/09/16 05:32; Admin Dose 3 CAP; Start 10/29/16 at 13:00 Latanoprost (Xalatan) 1 drop HS BOTH EYES Last administered on 11/08/16 21:07; Admin Dose 1 DROP; Start 10/31/16 at 21:00 Dorzolamide/ Timolol (Cosopt) 1 drop BID BOTH EYES Last administered on 09:20; Admin Dose 1 DROP; Start 10/31/16 at 21:00 Insulin Aspart (Novolog Insulin Pen) NOVOLOG *MODERATE* ALGORI... Q6 SC Last administered on 11/09/16 05:35; Admin Dose 8 UNIT; Start 11/03/16 at 18:00 Miscellaneous Information 1 ea NOTE XX ; Start 11/03/16 at 18:00 Glucagon (Glucagen) 1 mg Q15M PRN IM DECREASED GLUCOSE; Start 11/03/16 at 18:00 Glucose (Glutose) 15 gm Q15M PRN BUCCAL DECREASED GLUCOSE; Start 11/03/16 at 18 :00 Ondansetron HCl (Zofran Inj) 4 mg Q4H PRN IV NAUSEA AND/OR VOMITING Last administered on 11/04/16 22:52; Admin Dose 4 MG; Start 11/04/16 at 23:00 Eye Lubricant (Artificial Tears Oph) 2 drop QID BOTH EYES Last administered on 11/09/16 09:20; Admin Dose 2 DROP; Start 11/07/16 at 09:00 Sodium Biphosphate/ Sodium Phosphate (Fleet Enema) 133 ml DAILY PRN [place] CONSTIPATION; Start 11/07/16 at 19:00 FAZAL LAFLEUR MD November 09, 2016 09:49
[2016-11-09] MEDS: METOCLOPRAMIDE 10 MG INJ IV SCH ×2 (12:48→20:44)
--- NOTE | 2016-11-09 13:04 | PN ---
DATE: 11/09/2016 SUBJECTIVE: The patient complains of mid epigastric pain, as well as some heartburn. Otherwise is feeling okay. OBJECTIVE: VITAL SIGNS: T-max 99, pulse 79, respirations 13, blood pressure 101/51, oxygen saturation 98% on r oom air. GENERAL: Well-developed, well-nourished female, in no acute distress, lying in bed. SKIN: Scattered ecchymoses. LUNGS: Clear to auscultation bilaterally. HEART: Regular rate and rhythm. ABDOMEN: Mild epigastric tenderness. Decreased bowel sounds. Soft, nondistended. EXTREMITIES: Trace bilateral upper and lower extremity edema. Sacral edema as well. Extremities as well have the right great toe with eschar. LABORATORY EXAMINATION: Hemoglobin is 9.8, hematocrit is 33.3, white blood cell count 11.8, platele t count 107. Sodium 133, potassium 3.9, chloride 99, bicarbonate 26, BUN of 30, creatinine 1.9. Bl ood sugar of 267, albumin 2.7, alkaline phosphatase 173. ASSESSMENT AND PLAN: 1. Coronary disease/peripheral arterial disease, status post STEMI. The patient remains stable. C hest x-ray shows mild failure. Will continue with the current treatment plan, ICU monitoring and di uretics. Will give 4 mg of Coumadin today for anticoagulation. 2. Acute renal failure. The patient is on dialysis for tomorrow. Will continue to monitor electro lytes and kidney function. 3. Gastroesophageal reflux disease. Will add Reglan 5 mg t.i.d., as well as p.r.n., and p.r.n. TUMS . Continue with G-tube feedings. 4. Depression and anxiety. Stable. 5. Diabetes. Labile. Will continue to adjust medications. Dictated By: TOVA WRIGHT MD SR/NTS Conf#: [id number] DID#: [id number]
[2016-11-09] MEDS: CALCIUM CARBONATE 750 MG CHEW TAB PO PRN ×2 (15:21→20:49)
[2016-11-09] MEDS: ONDANSETRON 4 MG INJ IV PRN (15:21)
[2016-11-09] MEDS ORDERED: WARFARIN 2 MG TAB GTB ONE (17:00)
[2016-11-09] MEDS: EPOETIN 10000 UNITS/1 ML INJ (ESRD) SC SCH (17:55)
[2016-11-09] MEDS ORDERED: INSULIN GLARGINE [LANtus] 3 ML PEN SC SCH (20:00)
[2016-11-09] MEDS: LATANOPROST 0.005% 2.5 ML OPH BOTH EYES SCH (21:00)
[2016-11-09] MEDS ORDERED: PHYTONADIONE 5 MG in DEXTROSE 5% 50 ML IVPB ONE (22:00)
[2016-11-09 22:16] LABS: HEMATOCRIT 29.1 % (37.0-47.0); HEMOGLOBIN 8.5 g/dl (12.0-16.0)
[2016-11-09 22:33] LABS: INR 2.5; PROTIME 27.3 Sec (12.2-14.2); PT RATIO 2.1
[2016-11-09 22:34] LABS: PARTIAL THROMBOPLASTIN TIME 43.2 Sec (25.0-35.0)
[2016-11-10] VITALS (53 sets, daily range): BP systolic 77–114; BP diastolic 40–59; PULSE 78–93; RESP 9–21
[2016-11-10] MEDS: INSULIN ASPART [NOVOLOG] 3 ML PEN SC SCH ×5 (00:03→23:39)
[2016-11-10] MEDS: CREON (12k-38k-60k) 1 CAP NGT SCH ×4 (00:21→18:11)
[2016-11-10] MEDS: IPRATROPIUM (NEB) 0.5 MG/2.5 ML AMP HHN SCH ×4 (01:55→19:38)
[2016-11-10] MEDS: LEVALBUTEROL (NEB) 1.25 MG/0.5 ML AMP HHN SCH ×4 (01:55→19:38)
[2016-11-10 07:52] LABS: ADD SCAN DIFF NO
[2016-11-10] MEDS: ALBUMIN HUMAN 25% 100 ML IV PRN (08:00)
[2016-11-10] MEDS ORDERED: ALBUMIN HUMAN 25% 100 ML IV ONE (08:00)
[2016-11-10 08:09] LABS: BASOPHILS % 0.3 % (0.0-2.0); EOSINOPHILS # 0.2 10^3/ul (0.0-0.5); EOSINOPHILS % 1.8 % (0.0-7.0); HEMATOCRIT 34.8 % (37.0-47.0); HEMOGLOBIN 10.6 g/dl (12.0-16.0); LYMPHOCYTES # 1.9 10^3/ul (0.8-2.9); LYMPHOCYTES % 17.2 % (15.0-51.0); MEAN CORPUSCULAR HEMOGLOBIN 28.9 pg (29.0-33.0); MEAN CORPUSCULAR HGB CONC 30.5 g/dl (32.0-37.0); MEAN CORPUSCULAR VOLUME 94.8 fl (82.0-101.0); MEAN PLATELET VOLUME 10.6 fl (7.4-10.4); MONOCYTE # 0.6 10^3/ul (0.3-0.9); NEUTROPHIL # 8.4 10^3/ul (1.6-7.5); NEUTROPHILS % 74.3 % (39.0-77.0); NUCLEATED RED BLOOD CELLS% 0.2 /100WBC (0.0-0.0); PLATELET COUNT 117 10^3/UL (140-415); RED BLOOD COUNT 3.67 10^6/ul (4.20-5.40); RED CELL DISTRIBUTION WIDTH 20.4 % (11.5-14.5); WHITE BLOOD COUNT 11.3 10^3/ul (4.8-10.8)
[2016-11-10] MEDS: CALCIUM CARBONATE 750 MG CHEW TAB PO PRN (08:12)
[2016-11-10] MEDS: METOPROLOL 25 MG TAB PO SCH ×2 (08:13→20:20)
[2016-11-10] MEDS: METOCLOPRAMIDE 10 MG INJ IV SCH ×3 (08:13→20:18)
[2016-11-10] MEDS: PANTOPRAZOLE 40 MG INJ IV SCH (08:14)
[2016-11-10] MEDS: ARTIFICIAL TEARS 15 ML OPH BOTH EYES SCH ×4 (08:17→20:18)
[2016-11-10] MEDS: CALCIUM CARBONATE 500 MG CHEW TAB NGT SCH ×3 (08:17→20:19)
[2016-11-10] MEDS: L ACIDOPHIL/B LACTIS/B LONGUM CAPSULE PO SCH ×3 (08:17→20:18)
[2016-11-10] MEDS: DORZOLAMIDE/TIMOLOL 10 ML OPH BOTH EYES SCH ×2 (08:17→20:18)
[2016-11-10 08:19] LABS: POTASSIUM 3.7 mmol/L (3.5-5.1)
[2016-11-10 08:22] LABS: CREATININE 2.32 mg/dl (0.44-1.00)
[2016-11-10 08:23] LABS: CALCIUM 8.1 mg/dl (8.4-10.2); MAGNESIUM 2.2 mg/dl (1.7-2.5); PHOSPHORUS 3.4 mg/dl (2.5-4.9)
[2016-11-10 08:42] LABS: INR 1.45; PROTIME 17.7 Sec (12.2-14.2); PT RATIO 1.4
[2016-11-10 10:02] LABS: HEMATOCRIT 36.4 % (37.0-47.0); HEMOGLOBIN 11.2 g/dl (12.0-16.0)
--- NOTE | 2016-11-10 10:36 | CONS ---
Date/Time of Note Date/Time of Note DATE: 11/10/16 TIME: 10:34 Assessment/Plan Assessment/Plan Additional Assessment/Plan 1. Bleeding, vag for rectal--was transfused last night 2. ARF, without recovery, now being dialyzed Consultation Date/Type/Reason Admit Date/Time Sep 20, 2016 at 19:21 Initial Consult Date 09/23/16 Type of Consultation: Pulmonary ICU Referring Provider: ZANDRA ROBISON MD, [facility] Detailed Summary Respiratory: No cough Cardiovascular: No chest pain Gastrointestinal: No pain (brb noted in bed last night, unclear whehter vag or rectal bleeding) Exam/Review of Systems Vital Signs Vitals Vital Signs Date Time Temp Pulse Resp B/P Pulse Ox O2 Delivery O2 Flow Rate FiO2 11/10/16 09:45 91 11/10/16 08:00 Nasal Cannula 2.0 11/10/16 06:45 19 11/10/16 06:30 99 11/10/16 06:00 102/50 11/10/16 04:00 98.2 11/10/16 01:56 21 Intake and Output 11/09/16 11/09/16 11/10/16 15:00 23:00 07:00 Intake Total 460 ml 400 ml 700 ml Output Total 0 ml 0 ml 0 ml Balance 460 ml 400 ml 700 ml Exam Neck: No jvd Respiratory: clear to auscultation, diminished breath sounds Cardiovascular: regular rate and rhythm Gastrointestinal: No tender Extremities: edema (no pitting leg edema) Results Result Diagram: 11/10/16 0957 11/10/16 0745 Results 24 hrs Laboratory Tests Test 11/09/16 12:51 11/09/16 17:34 11/09/16 17:44 11/09/16 20:53 Bedside Glucose 270 H 274 H 258 H 283 H Test 11/09/16 22:05 11/09/16 23:58 11/10/16 05:55 11/10/16 07:45 Hemoglobin 8.5 L 10.6 #L Hematocrit 29.1 L 34.8 L Prothrombin Time 27.3 #H 17.7 #H Prothrombin Time Ratio 2.1 1.4 INR International Normalized Ratio 2.50 1.45 Activated Partial Thromboplast Time 43.2 H Bedside Glucose 276 H 223 H White Blood Count 11.3 H Red Blood Count 3.67 L Mean Corpuscular Volume 94.8 Mean Corpuscular Hemoglobin 28.9 L Mean Corpuscular Hemoglobin Concent 30.5 L Red Cell Distribution Width 20.4 H Platelet Count 117 L Mean Platelet Volume 10.6 H Neutrophils % 74.3 Lymphocytes % 17.2 Monocytes % 5.0 Eosinophils % 1.8 Basophils % 0.3 Nucleated Red Blood Cells % 0.2 H Neutrophils # 8.4 H Lymphocytes # 1.9 Monocytes # 0.6 Eosinophils # 0.2 Basophils # 0.0 Nucleated Red Blood Cells # 0.0 Sodium Level 134 L Potassium Level 3.7 Chloride Level 98 Carbon Dioxide Level 28 Anion Gap 12 Blood Urea Nitrogen 45 #H Creatinine 2.32 H Glucose Level 224 H Calcium Level 8.1 L Phosphorus Level 3.4 Magnesium Level 2.2 Test 11/10/16 09:25 11/10/16 09:57 Lab Scanned Report REFERENCE LAB Hemoglobin 11.2 L Hematocrit 36.4 L Medications Medications Current Medications Acetaminophen (Tylenol Liquid) 650 mg Q4H PRN NGT PAIN AND OR ELEVATED TEMP Last administered on 11/09/16 11:10; Admin Dose 650 MG; Start 09/21/16 at 02:00 Pantoprazole (Protonix Iv) 40 mg AM IV Last administered on 11/10/16 08:14; Admin Dose 40 MG; Start 09/26/16 at 09:00 Epoetin Raj (Epogen (Esrd)) 10,000 units TuThSa@17 SC Last administered on 11/09 17:55; Admin Dose 10,000 UNITS; Start 09/26/16 at 17:00 IV Flush (NS 10 ml) 10 ml PRN PRN IV IV PROTOCOL; Start 09/26/16 at 17:30 Dextrose (D50w Syringe) 25 ml Q15M PRN IV DECREASED GLUCOSE Last administered on 11/01/16 21:38; Admin Dose 25 ML; Start 10/09/16 at 20:30 Calcium Carbonate (Tums) 500 mg TID NGT Last administered on 11/10/16 08:17; Admin Dose 500 MG; Start 10/15/16 at 21:00 Metoprolol Tartrate (Lopressor) 25 mg BID PO Last administered on 11/09/16 20: 43; Admin Dose 25 MG; Start 10/20/16 at 21:00 Lactulose (Enulose) 20 gm BID PRN PO CONSTIPATION Last administered on 12:57; Admin Dose 20 GM; Start 10/23/16 at 10:30 Lactobacillus Acidophilus (Florajen3 Capsule) 1 each TID PO Last administered on 11/10/16 08:17; Admin Dose 1 EACH; Start 10/25/16 at 13:30 Amylase/Lipase/ Protease (CREON ([id number])) 3 cap Q6 NGT Last administered on 11/10/16 05:30; Admin Dose 3 CAP; Start 10/29/16 at 13:00 Latanoprost (Xalatan) 1 drop HS BOTH EYES Last administered on 11/09/16 21:00; Admin Dose 1 DROP; Start 10/31/16 at 21:00 Dorzolamide/ Timolol (Cosopt) 1 drop BID BOTH EYES Last administered on 08:17; Admin Dose 1 DROP; Start 10/31/16 at 21:00 Insulin Aspart (Novolog Insulin Pen) NOVOLOG *MODERATE* ALGORI... Q6 SC Last administered on 11/10/16 06:34; Admin Dose 6 UNIT; Start 11/03/16 at 18:00 Miscellaneous Information 1 ea NOTE XX ; Start 11/03/16 at 18:00 Glucagon (Glucagen) 1 mg Q15M PRN IM DECREASED GLUCOSE; Start 11/03/16 at 18:00 Glucose (Glutose) 15 gm Q15M PRN BUCCAL DECREASED GLUCOSE; Start 11/03/16 at 18 :00 Ondansetron HCl (Zofran Inj) 4 mg Q4H PRN IV NAUSEA AND/OR VOMITING Last administered on 11/09/16 15:21; Admin Dose 4 MG; Start 11/04/16 at 23:00 Eye Lubricant (Artificial Tears Oph) 2 drop QID BOTH EYES Last administered on 11/10/16 08:17; Admin Dose 2 DROP; Start 11/07/16 at 09:00 Sodium Biphosphate/ Sodium Phosphate (Fleet Enema) 133 ml DAILY PRN [place] CONSTIPATION; Start 11/07/16 at 19:00 Metoclopramide HCl (Reglan) 5 mg TID IV Last administered on 11/10/16 08:13; Admin Dose 5 MG; Start 11/09/16 at 13:00 Calcium Carbonate (Tums Ex) 750 mg Q6H PRN PO dyspepsia Last administered on 08:12; Admin Dose 750 MG; Start 11/09/16 at 12:30 Insulin Glargine (Lantus) 8 unit DAILY@20 SC Last administered on 11/09/16 20: 55; Admin Dose 8 UNIT; Start 11/09/16 at 20:00 Morphine Sulfate (morphine) 1 mg Q3H PRN IV pain; Start 11/10/16 at 08:00 FAZAL LAFLEUR MD November 10, 2016 10:36
--- NOTE | 2016-11-10 11:14 | RADRPT ---
PROCEDURE: XR Chest. CLINICAL INDICATION: Shortness of breath. TECHNIQUE: Single frontal view. COMPARISON: 11/07/2016. FINDINGS: The tunneled right internal jugular vein dialysis catheter and left arm PICC line remain in satisfac tory position. There is pulmonary edema and bibasilar atelectasis, slightly worse than seen previou sly. The heart is enlarged. There are small bilateral pleural effusions. There is no pneumothorax. IMPRESSION: 1. Slightly worse appearance of the lungs. 2. No other change from 11/07/2016. RPTAT: QQ .Arnaldo Back MD, MD Date Time Electronically viewed and signed by .Arnaldo Back MD, on 11/10/2016 11:14 .R/
[2016-11-10 12:09] LABS: AADO2 Arterial 39.9 mmHg (7.0-24.0); Allen Test ACCEPTAB; Arterial Base Excess 2.5 mmol/L (-3.0-3); Arterial COHb 0.6 % (0.0-3.0); Arterial Fraction of Oxyhgb 97.2 % (93.0-99.0); Arterial HCO3 28.1 mmol/L (22.0-26.0); Arterial MetHb 0.4 % (0.0-1.5); Arterial Total Hemglobin 11.2 g/dl (12.0-18.0); MODE NASAL CANNULA
--- NOTE | 2016-11-10 13:13 | CONS ---
Date/Time of Note Date/Time of Note DATE: 11/10/16 TIME: 13:00 Consult Date/Type/Reason Admit Date/Time Sep 20, 2016 at 19:21 Initial Consult Date 09/23/16 Type of Consultation: Pulmonary ICU Ordering Provider: [facility]DR[facility] ROBISON [facility], [facility] Subjective More somnolent Bright red blood per rectum noted. Objective Vital Signs Date Time Temp Pulse Resp B/P Pulse Ox O2 Delivery O2 Flow Rate FiO2 11/10/16 12:00 88 11/10/16 09:05 10 97 21 11/10/16 08:00 Nasal Cannula 2.0 11/10/16 06:00 102/50 11/10/16 04:00 98.2 Intake and Output 11/09/16 11/09/16 11/10/16 15:00 23:00 07:00 Intake Total 460 ml 400 ml 700 ml Output Total 0 ml 0 ml 0 ml Balance 460 ml 400 ml 700 ml Exam PHYSICAL EXAMINATION: GENERAL: Elderly-appearing lady, eyes open, more somnolent today VITAL SIGNS: As above NECK: JVD is elevated. CARDIAC: S1, S2, A II/ systolic ejection murmur. CHEST: Diminished air entry bilaterally. ABDOMEN: Soft, nontender. No guarding or rebound. EXTREMITIES: No cyanosis, clubbing, 2+ edema. NEUROLOGIC: Generalized weakness Results/Medications Result Diagram: 11/10/16 0957 11/10/16 0745 Results 24 hrs Chest x-ray Increasing right-sided effusions Laboratory Tests Test 11/09/16 17:34 11/09/16 17:44 11/09/16 20:53 11/09/16 22:05 Bedside Glucose 274 H 258 H 283 H Hemoglobin 8.5 L Hematocrit 29.1 L Prothrombin Time 27.3 #H Prothrombin Time Ratio 2.1 INR International Normalized Ratio 2.50 Activated Partial Thromboplast Time 43.2 H Test 11/09/16 23:58 11/10/16 05:55 11/10/16 07:45 11/10/16 09:25 Bedside Glucose 276 H 223 H White Blood Count 11.3 H Red Blood Count 3.67 L Hemoglobin 10.6 #L Hematocrit 34.8 L Mean Corpuscular Volume 94.8 Mean Corpuscular Hemoglobin 28.9 L Mean Corpuscular Hemoglobin Concent 30.5 L Red Cell Distribution Width 20.4 H Platelet Count 117 L Mean Platelet Volume 10.6 H Neutrophils % 74.3 Lymphocytes % 17.2 Monocytes % 5.0 Eosinophils % 1.8 Basophils % 0.3 Nucleated Red Blood Cells % 0.2 H Neutrophils # 8.4 H Lymphocytes # 1.9 Monocytes # 0.6 Eosinophils # 0.2 Basophils # 0.0 Nucleated Red Blood Cells # 0.0 Prothrombin Time 17.7 #H Prothrombin Time Ratio 1.4 INR International Normalized Ratio 1.45 Sodium Level 134 L Potassium Level 3.7 Chloride Level 98 Carbon Dioxide Level 28 Anion Gap 12 Blood Urea Nitrogen 45 #H Creatinine 2.32 H Glucose Level 224 H Calcium Level 8.1 L Phosphorus Level 3.4 Magnesium Level 2.2 Lab Scanned Report REFERENCE LAB Test 11/10/16 09:57 11/10/16 11:21 Hemoglobin 11.2 L Hematocrit 36.4 L Blood Gas Specimen Source Blood arterial Arterial Blood Date Drawn 11/10/2016 11:55:35 AM Arterial Blood pH (Temp corrected) 7.386 Arterial Blood pCO2 (Temp correct) 48.0 H Arterial Blood pO2 (Temp corrected) 117.6 H Arterial Blood HCO3 28.1 H Arterial Blood Base Excess 2.5 Arterial Blood Oxygen Saturation 98.2 H Raz Test ACCEPTAB Arterial Blood Gas Puncture Site Right Radial Arterial Blood Carboxyhemoglobin 0.6 Arterial Blood Methemoglobin 0.4 Blood Gas A-a O2 Differential 39.9 H Oxyhemoglobin Percent 97.2 Total Hemoglobin 11.2 L Blood Gas Temperature 37.0 Blood Gas Actual Respiration Rate 16 Blood Gas Modality NASAL CANNULA FiO2 30.0 Blood Gas Critical Value Read Back Vladimir LLANES RN Blood Gas Notified Whom RDIX Blood Gas Notified Time 11/10/2016 12:09:09 PM Medications Current Medications Acetaminophen (Tylenol Liquid) 650 mg Q4H PRN NGT PAIN AND OR ELEVATED TEMP Last administered on 11/09/16 11:10; Admin Dose 650 MG; Start 09/21/16 at 02:00 Pantoprazole (Protonix Iv) 40 mg AM IV Last administered on 11/10/16 08:14; Admin Dose 40 MG; Start 09/26/16 at 09:00 Epoetin Raj (Epogen (Esrd)) 10,000 units TuThSa@17 SC Last administered on 11/09 17:55; Admin Dose 10,000 UNITS; Start 09/26/16 at 17:00 IV Flush (NS 10 ml) 10 ml PRN PRN IV IV PROTOCOL; Start 09/26/16 at 17:30 Dextrose (D50w Syringe) 25 ml Q15M PRN IV DECREASED GLUCOSE Last administered on 11/01/16 21:38; Admin Dose 25 ML; Start 10/09/16 at 20:30 Calcium Carbonate (Tums) 500 mg TID NGT Last administered on 11/10/16 08:17; Admin Dose 500 MG; Start 10/15/16 at 21:00 Metoprolol Tartrate (Lopressor) 25 mg BID PO Last administered on 11/09/16 20: 43; Admin Dose 25 MG; Start 10/20/16 at 21:00 Lactulose (Enulose) 20 gm BID PRN PO CONSTIPATION Last administered on 12:57; Admin Dose 20 GM; Start 10/23/16 at 10:30 Lactobacillus Acidophilus (Florajen3 Capsule) 1 each TID PO Last administered on 11/10/16 08:17; Admin Dose 1 EACH; Start 10/25/16 at 13:30 Amylase/Lipase/ Protease (CREON ([id number]-60k)) 3 cap Q6 NGT Last administered on 11/10/16 05:30; Admin Dose 3 CAP; Start 10/29/16 at 13:00 Latanoprost (Xalatan) 1 drop HS BOTH EYES Last administered on 11/09/16 21:00; Admin Dose 1 DROP; Start 10/31/16 at 21:00 Dorzolamide/ Timolol (Cosopt) 1 drop BID BOTH EYES Last administered on 08:17; Admin Dose 1 DROP; Start 10/31/16 at 21:00 Insulin Aspart (Novolog Insulin Pen) NOVOLOG *MODERATE* ALGORI... Q6 SC Last administered on 11/10/16 06:34; Admin Dose 6 UNIT; Start 11/03/16 at 18:00 Miscellaneous Information 1 ea NOTE XX ; Start 11/03/16 at 18:00 Glucagon (Glucagen) 1 mg Q15M PRN IM DECREASED GLUCOSE; Start 11/03/16 at 18:00 Glucose (Glutose) 15 gm Q15M PRN BUCCAL DECREASED GLUCOSE; Start 11/03/16 at 18 :00 Ondansetron HCl (Zofran Inj) 4 mg Q4H PRN IV NAUSEA AND/OR VOMITING Last administered on 11/09/16 15:21; Admin Dose 4 MG; Start 11/04/16 at 23:00 Eye Lubricant (Artificial Tears Oph) 2 drop QID BOTH EYES Last administered on 11/10/16 08:17; Admin Dose 2 DROP; Start 11/07/16 at 09:00 Sodium Biphosphate/ Sodium Phosphate (Fleet Enema) 133 ml DAILY PRN [place] CONSTIPATION; Start 11/07/16 at 19:00 Metoclopramide HCl (Reglan) 5 mg TID IV Last administered on 11/10/16 08:13; Admin Dose 5 MG; Start 11/09/16 at 13:00 Calcium Carbonate (Tums Ex) 750 mg Q6H PRN PO dyspepsia Last administered on 08:12; Admin Dose 750 MG; Start 11/09/16 at 12:30 Insulin Glargine (Lantus) 8 unit DAILY@20 SC Last administered on 11/09/16 20: 55; Admin Dose 8 UNIT; Start 11/09/16 at 20:00 Morphine Sulfate (morphine) 1 mg Q3H PRN IV pain; Start 11/10/16 at 08:00 Assessment/Plan Chief Complaint/Hosp Course IMPRESSION AND PLAN: 1. Acute on chronic hypoxemic and hypercapnic respiratory failure, likely secondary to a combination of volume overload, right pleural effusion and alveolar hypoventilation from significant neuromuscular weakness.Status post thoracentesis right lung repeat chest x-ray shows worsening effusion. 2. History of cardiopulmonary arrest with encephalopathy. 3. Dysphagia with G-tube. 4. Renal failure on hemodialysis. The patient will require: 1. Continue nasal cannula, repeat ABG, may require repeat thoracentesis 2. Continue hemodialysis as tolerated. 3. Continue tube feeding 4. DVT and GI prophylaxis Disposition Continue ICU care Palliative care input, I would recommend patient CODE STATUS be changed to DNR and she is a high likelihood of reintubation which was not consistent with her prior wishes. Reintubation would result and need for tracheostomy. Problems: ZANDRA ROBISON MD, [facility] November 10, 2016 13:12
--- NOTE | 2016-11-10 18:17 | CONS ---
DATE OF ADMISSION: 09/20/2016 DATE OF CONSULTATION: REASON FOR CONSULTATION: The patient was asked to be seen by me because rectal bleeding. HISTORY OF PRESENT ILLNESS: The patient is in the intensive care unit because of sepsis and hypoten margie and respiratory failure. She was on Coumadin, reason is not known. Whether it is a prophylact ic for DVT is not clearly known. Prothrombin time was 17.7 and INR of 1.45. She has had a percutaneous endoscopic gastrostomy placed recently. PHYSICAL EXAMINATION: GENERAL: The patient is very lethargic. She is unable to communicate appropriately. VITAL SIGNS: Pulse is 91, blood pressure 94/46. CARDIOVASCULAR: Normal heart sounds. RESPIRATORY: Normal breath sounds. ABDOMEN: Shows soft abdomen, which is obese abdomen. RECTAL: Showing rectal blood on the examining glove. LABORATORY WORKUP: Again, shows that hemoglobin yesterday was 8.5, hematocrit 28.1. Today after 2 units of transfusion, hemoglobin 10.6 and 11.2. WBC count 11.3. The platelet count is 117,000. Po tassium is 3.7. The liver panel as of 11/06/2016 shows bilirubin of 0.2, AST 43, ALT 37, alkaline p hosphatase 156. CLINICAL IMPRESSION: The patient presenting with evidence of rectal bleeding, rule out ischemic col itis, rule out colorectal neoplasm, arteriovenous malformation, diverticulosis of the colon. She does have hemorrhoids on the rectal exam. At this time, hemoglobin is stable. Certainly, gastr ostomy site ulcer disease cannot be excluded. PLAN: At this time, watch the patient closely. If the hemoglobin drops significantly, transfusion is recommended. Continue Protonix IV. Recommend hold the anticoagulation therapy. Recommend repea t INR and liver panel. We may need to do upper endoscopy as well as lower endoscopy if the bleeding were to continue. I will be happy to follow this patient closely. Dictated By: CIELO SANCHEZ MD NC/NTS Conf#: [id number] DID#: [id number] CC: CIELO SANCHEZ MD; ZANDRA ROBISON MD; SHAMA LOPEZ MD; TOVA WRIGHT MD;*EndCC*
[2016-11-10 19:17] LABS: HEMATOCRIT 30.1 % (37.0-47.0); HEMOGLOBIN 9.6 g/dl (12.0-16.0)
[2016-11-10] MEDS: LATANOPROST 0.005% 2.5 ML OPH BOTH EYES SCH (20:18)
[2016-11-11] VITALS (29 sets, daily range): BP systolic 87–126; BP diastolic 39–76; PULSE 83–104; RESP 10–21
[2016-11-11] MEDS: CREON (12k-38k-60k) 1 CAP NGT SCH ×5 (00:54→23:30)
[2016-11-11] MEDS: IPRATROPIUM (NEB) 0.5 MG/2.5 ML AMP HHN SCH ×4 (01:16→20:33)
[2016-11-11] MEDS: LEVALBUTEROL (NEB) 1.25 MG/0.5 ML AMP HHN SCH ×4 (01:16→20:33)
[2016-11-11 02:56] LABS: HEMATOCRIT 29.3 % (37.0-47.0); HEMOGLOBIN 9.2 g/dl (12.0-16.0)
--- NOTE | 2016-11-11 03:11 | PN ---
DATE: 11/10/2016 SUBJECTIVE: The patient had had severe abdominal pain last night, none now, otherwise without compl aint. OBJECTIVE: VITAL SIGNS: Temperature 98.6, pulse 87, respirations 11, blood pressure 106/41, oxygen saturation 100% on 2 liter nasal cannula oxygen. GENERAL: Well-developed, well-nourished female in no acute distress, lying in bed. CHEST: Decreased breath sounds bilateral bases. HEART: Regular rate and rhythm, 1/6 systolic ejection murmur. No gallops. ABDOMEN: Soft with minimal epigastric tenderness to deep palpation. No rebound, nondistended, norm oactive bowel sounds. EXTREMITIES: No cyanosis, clubbing. Trace edema. Eschar at tip of left second and right first dig its of the feet. NEUROLOGIC: Alert and oriented, otherwise nonfocal. LABORATORY DATA: Sodium 134, potassium 3.7, BUN of 45, creatinine 2.32. Magnesium 2.2, phosphorus 3.4. INR of 1.45, hemoglobin 9.6, hematocrit 30.1. ASSESSMENT AND PLAN: 1. Rectal bleeding. The patient is already status post transfusion and has had no further rectal b leeding since early this morning. We will continue to do H and H. I appreciate Dr. Helm's consul tation regarding this patient. Continue to hold anticoagulation at this point and transfuse as need ed. 2. Status post ST elevation myocardial infarction/acute on chronic congestive heart failure. The p atient is now fluid overload but status post hemodialysis today. We will continue with intermittent dialysis as the patient has no response to diuretics. 3. Acute renal failure on hemodialysis. Continue with dialysis as needed per nephrology. 4. Abdominal pain, reflux. Continue with medications, diet, holding the feed at this time due to t he gastrointestinal bleed. 5. Depression, anxiety, stable. Continue with meds. 6. Diabetes, improved with the G-tube feeding being held right now. We will resume Lantus when we start feeding the patient again. Dictated By: TOVA WRIGHT MD SR/NTS Conf#: [id number] DID#: [id number]
[2016-11-11] MEDS: INSULIN ASPART [NOVOLOG] 3 ML PEN SC SCH ×4 (05:45→23:32)
[2016-11-11 06:20] LABS: ADD SCAN DIFF NO
[2016-11-11 06:30] LABS: BASOPHILS % 0.3 % (0.0-2.0); EOSINOPHILS # 0.2 10^3/ul (0.0-0.5); EOSINOPHILS % 2.1 % (0.0-7.0); HEMATOCRIT 29.7 % (37.0-47.0); LYMPHOCYTES # 2.3 10^3/ul (0.8-2.9); MEAN CORPUSCULAR HEMOGLOBIN 29.2 pg (29.0-33.0); MEAN CORPUSCULAR HGB CONC 30.3 g/dl (32.0-37.0); MEAN CORPUSCULAR VOLUME 96.4 fl (82.0-101.0); MONOCYTE # 0.9 10^3/ul (0.3-0.9); MONOCYTES % 8.5 % (0.0-11.0); NEUTROPHIL # 7.3 10^3/ul (1.6-7.5); NEUTROPHILS % 66.5 % (39.0-77.0); NUCLEATED RED BLOOD CELLS% 0.2 /100WBC (0.0-0.0); PLATELET COUNT 101 10^3/UL (140-415); RED BLOOD COUNT 3.08 10^6/ul (4.20-5.40); RED CELL DISTRIBUTION WIDTH 20.8 % (11.5-14.5)
[2016-11-11 07:03] LABS: CALCIUM 8.4 mg/dl (8.4-10.2); CREATININE 1.93 mg/dl (0.44-1.00); MAGNESIUM 2.1 mg/dl (1.7-2.5); PHOSPHORUS 3.3 mg/dl (2.5-4.9); POTASSIUM 3.9 mmol/L (3.5-5.1)
--- NOTE | 2016-11-11 07:49 | CONS ---
Date/Time of Note Date/Time of Note DATE: 11/11/16 TIME: 07:40 Assessment/Plan Assessment/Plan Chief Complaint/Hosp Course 1. Acute Renal Failure due to ATN . She is now on maintenance hemodialysis .CXR done yesterday shows pulmonary edema . She still has evidence of volume overload and I will order dry ultrafiltration today and hemodialysis for tomorrow . 2. ALOC , she continues to be very weak and lethargic , but more awake today. 3. liver enzyme elevation due to anoxia , enzymes are decreasing . 4. CHF , she continues to have lung congestion and peripheral edema . 5. hypocalcemia/hypoalbuminemia , calcium is higher 6. anemia , She has been having some GI bleeding . Will transfuse 1 unit of blood with ultrafiltration today . 7. peripheral vascular disease . 8. respiratory failure , now on nasal canula . 9 dysphagia , she has a PEG . Problems: Consultation Date/Type/Reason Admit Date/Time Sep 20, 2016 at 19:21 Initial Consult Date 09/23/16 Type of Consultation: Pulmonary ICU Referring Provider: ZANDRA ROBISON MD, [facility] HR Interval Summary Free Text/Dictation She is more awake today and is responsive .She says that she feels good . Constitutional: no complaints Exam/Review of Systems Vital Signs Vitals Vital Signs Date Time Temp Pulse Resp B/P Pulse Ox O2 Delivery O2 Flow Rate FiO2 11/11/16 06:00 86 10 99/51 100 Nasal Cannula 2.0 11/11/16 04:00 98.1 11/11/16 01:17 Intake and Output 11/10/16 11/10/16 11/11/16 15:00 23:00 07:00 Intake Total 800 ml 75 ml 60 ml Output Total 3300 ml 0 ml 0 ml Balance -2500 ml 75 ml 60 ml Exam Constitutional: alert Psych: no complaints Respiratory: clear to auscultation, diminished breath sounds Cardiovascular: edema, regular rate and rhythm Gastrointestinal: soft Extremities: edema Results Result Diagram: 11/11/16 0500 11/11/16 0500 Results 24 hrs Laboratory Tests Test 11/10/16 07:45 11/10/16 09:25 11/10/16 09:57 11/10/16 11:21 White Blood Count 11.3 H Red Blood Count 3.67 L Hemoglobin 10.6 #L 11.2 L Hematocrit 34.8 L 36.4 L Mean Corpuscular Volume 94.8 Mean Corpuscular Hemoglobin 28.9 L Mean Corpuscular Hemoglobin Concent 30.5 L Red Cell Distribution Width 20.4 H Platelet Count 117 L Mean Platelet Volume 10.6 H Neutrophils % 74.3 Lymphocytes % 17.2 Monocytes % 5.0 Eosinophils % 1.8 Basophils % 0.3 Nucleated Red Blood Cells % 0.2 H Neutrophils # 8.4 H Lymphocytes # 1.9 Monocytes # 0.6 Eosinophils # 0.2 Basophils # 0.0 Nucleated Red Blood Cells # 0.0 Prothrombin Time 17.7 #H Prothrombin Time Ratio 1.4 INR International Normalized Ratio 1.45 Sodium Level 134 L Potassium Level 3.7 Chloride Level 98 Carbon Dioxide Level 28 Anion Gap 12 Blood Urea Nitrogen 45 #H Creatinine 2.32 H Glucose Level 224 H Calcium Level 8.1 L Phosphorus Level 3.4 Magnesium Level 2.2 Lab Scanned Report REFERENCE LAB Blood Gas Specimen Source Blood arterial Arterial Blood Date Drawn 11/10/2016 11:55:35 AM Arterial Blood pH (Temp corrected) 7.386 Arterial Blood pCO2 (Temp correct) 48.0 H Arterial Blood pO2 (Temp corrected) 117.6 H Arterial Blood HCO3 28.1 H Arterial Blood Base Excess 2.5 Arterial Blood Oxygen Saturation 98.2 H Raz Test ACCEPTAB Arterial Blood Gas Puncture Site Right Radial Arterial Blood Carboxyhemoglobin 0.6 Arterial Blood Methemoglobin 0.4 Blood Gas A-a O2 Differential 39.9 H Oxyhemoglobin Percent 97.2 Total Hemoglobin 11.2 L Blood Gas Temperature 37.0 Blood Gas Actual Respiration Rate 16 Blood Gas Modality NASAL CANNULA FiO2 30.0 Blood Gas Critical Value Read Back Vladimir LLANES RN Blood Gas Notified Whom ANDIIX Blood Gas Notified Time 11/10/2016 12:09:09 PM Test 11/10/16 13:03 11/10/16 17:50 11/10/16 18:56 11/10/16 23:29 Bedside Glucose 194 171 203 Hemoglobin 9.6 L Hematocrit 30.1 L Test 11/11/16 02:35 11/11/16 05:00 11/11/16 05:16 11/11/16 05:42 Hemoglobin 9.2 L 9.0 L Hematocrit 29.3 L 29.7 L White Blood Count 11.0 H Red Blood Count 3.08 L Mean Corpuscular Volume 96.4 Mean Corpuscular Hemoglobin 29.2 Mean Corpuscular Hemoglobin Concent 30.3 L Red Cell Distribution Width 20.8 H Platelet Count 101 L Mean Platelet Volume 11.0 H Neutrophils % 66.5 Lymphocytes % 21.0 Monocytes % 8.5 Eosinophils % 2.1 Basophils % 0.3 Nucleated Red Blood Cells % 0.2 H Neutrophils # 7.3 Lymphocytes # 2.3 Monocytes # 0.9 Eosinophils # 0.2 Basophils # 0.0 Nucleated Red Blood Cells # 0.0 Sodium Level 134 L Potassium Level 3.9 Chloride Level 101 Carbon Dioxide Level 27 Anion Gap 10 Blood Urea Nitrogen 32 #H Creatinine 1.93 H Glucose Level 215 Calcium Level 8.4 Phosphorus Level 3.3 Magnesium Level 2.1 Lab Scanned Report BLOOD TRANSFUSION Bedside Glucose 223 H Medications Medications Current Medications Acetaminophen (Tylenol Liquid) 650 mg Q4H PRN NGT PAIN AND OR ELEVATED TEMP Last administered on 11/09/16 11:10; Admin Dose 650 MG; Start 09/21/16 at 02:00 Pantoprazole (Protonix Iv) 40 mg AM IV Last administered on 11/10/16 08:14; Admin Dose 40 MG; Start 09/26/16 at 09:00 Epoetin Raj (Epogen (Esrd)) 10,000 units TuThSa@17 SC Last administered on 11/09 17:55; Admin Dose 10,000 UNITS; Start 09/26/16 at 17:00 IV Flush (NS 10 ml) 10 ml PRN PRN IV IV PROTOCOL; Start 09/26/16 at 17:30 Dextrose (D50w Syringe) 25 ml Q15M PRN IV DECREASED GLUCOSE Last administered on 11/01/16 21:38; Admin Dose 25 ML; Start 10/09/16 at 20:30 Calcium Carbonate (Tums) 500 mg TID NGT Last administered on 11/10/16 20:19; Admin Dose 500 MG; Start 10/15/16 at 21:00 Metoprolol Tartrate (Lopressor) 25 mg BID PO Last administered on 11/09/16 20: 43; Admin Dose 25 MG; Start 10/20/16 at 21:00 Lactulose (Enulose) 20 gm BID PRN PO CONSTIPATION Last administered on 12:57; Admin Dose 20 GM; Start 10/23/16 at 10:30 Lactobacillus Acidophilus (Florajen3 Capsule) 1 each TID PO Last administered on 11/10/16 20:18; Admin Dose 1 EACH; Start 10/25/16 at 13:30 Amylase/Lipase/ Protease (CREON ([id number])) 3 cap Q6 NGT Last administered on 11/11/16 05:40; Admin Dose 3 CAP; Start 10/29/16 at 13:00 Latanoprost (Xalatan) 1 drop HS BOTH EYES Last administered on 11/10/16 20:18; Admin Dose 1 DROP; Start 10/31/16 at 21:00 Dorzolamide/ Timolol (Cosopt) 1 drop BID BOTH EYES Last administered on 20:18; Admin Dose 1 DROP; Start 10/31/16 at 21:00 Insulin Aspart (Novolog Insulin Pen) NOVOLOG *MODERATE* ALGORI... Q6 SC Last administered on 11/11/16 05:45; Admin Dose 6 UNIT; Start 11/03/16 at 18:00 Miscellaneous Information 1 ea NOTE XX ; Start 11/03/16 at 18:00 Glucagon (Glucagen) 1 mg Q15M PRN IM DECREASED GLUCOSE; Start 11/03/16 at 18:00 Glucose (Glutose) 15 gm Q15M PRN BUCCAL DECREASED GLUCOSE; Start 11/03/16 at 18 :00 Ondansetron HCl (Zofran Inj) 4 mg Q4H PRN IV NAUSEA AND/OR VOMITING Last administered on 11/09/16 15:21; Admin Dose 4 MG; Start 11/04/16 at 23:00 Eye Lubricant (Artificial Tears Oph) 2 drop QID BOTH EYES Last administered on 11/10/16 20:18; Admin Dose 2 DROP; Start 11/07/16 at 09:00 Sodium Biphosphate/ Sodium Phosphate (Fleet Enema) 133 ml DAILY PRN [place] CONSTIPATION; Start 11/07/16 at 19:00 Metoclopramide HCl (Reglan) 5 mg TID IV Last administered on 11/10/16 20:18; Admin Dose 5 MG; Start 11/09/16 at 13:00 Calcium Carbonate (Tums Ex) 750 mg Q6H PRN PO dyspepsia Last administered on 08:12; Admin Dose 750 MG; Start 11/09/16 at 12:30 Insulin Glargine (Lantus) 8 unit DAILY@20 SC Last administered on 11/09/16 20: 55; Admin Dose 8 UNIT; Start 11/09/16 at 20:00; Status Future Hold Morphine Sulfate (morphine) 1 mg Q3H PRN IV pain; Start 11/10/16 at 08:00 DAMIR MARTINEZ MD November 11, 2016 07:49
[2016-11-11] MEDS: PANTOPRAZOLE 40 MG INJ IV SCH (08:35)
[2016-11-11] MEDS: DORZOLAMIDE/TIMOLOL 10 ML OPH BOTH EYES SCH ×2 (08:35→21:38)
[2016-11-11] MEDS: ARTIFICIAL TEARS 15 ML OPH BOTH EYES SCH ×4 (08:35→21:37)
[2016-11-11] MEDS: CALCIUM CARBONATE 500 MG CHEW TAB NGT SCH ×3 (08:36→21:38)
[2016-11-11] MEDS: METOPROLOL 25 MG TAB PO SCH ×2 (08:36→21:38)
[2016-11-11] MEDS: METOCLOPRAMIDE 10 MG INJ IV SCH ×3 (08:36→21:38)
[2016-11-11 08:43] LABS: AADO2 Arterial 6.9 mmHg (7.0-24.0); Allen Test ACCEPTAB; Arterial Base Excess 0.7 mmol/L (-3.0-3); Arterial COHb 0.3 % (0.0-3.0); Arterial Fraction of Oxyhgb 98.1 % (93.0-99.0); Arterial HCO3 26.1 mmol/L (22.0-26.0); Arterial MetHb 0.4 % (0.0-1.5); Arterial Total Hemglobin 9.8 g/dl (12.0-18.0); MODE NASAL CANNULA
[2016-11-11] MEDS: L ACIDOPHIL/B LACTIS/B LONGUM CAPSULE PO SCH ×3 (09:00→21:39)
--- NOTE | 2016-11-11 09:05 | RADRPT ---
PROCEDURE: XR Chest. CLINICAL INDICATION: Respiratory failure TECHNIQUE: An AP view of the chest was obtained. COMPARISON: Chest x-ray dated 11/10/2016 FINDINGS: The tip of the enteric tube projects over the left upper quadrant. There is a left upper extremity PICC line with tip near the cavoatrial junction. There is a right chest Perm-A-Cath with tip in the upper right atrium. There is prominence of the interstitial markings with small bilateral pleural effusions. A small r ight apical pneumothorax is again seen. The cardiomediastinal silhouette is mildly enlarged . Calc ifications are seen within the aortic arch. The osseous structures demonstrate senescent changes. IMPRESSION: 1. Small right apical pneumothorax. In retrospect, stable compared to prior examinations, likely th e sequela of prior thoracentesis. 2. Findings suggestive of interstitial edema with small bilateral pleural effusions. Lung aeration is mildly improved when compared to the prior examination. 3. Mild cardiomegaly and aortic atherosclerosis. 4. Tubes and lines, as described above. RPTAT: HH .Ana Salter MD, MD Date Time Electronically viewed and signed by .Ana Salter MD, MD on 11/11/2016 09:05 .G/
--- NOTE | 2016-11-11 09:28 | CONS ---
Date/Time of Note Date/Time of Note DATE: 11/11/16 TIME: 09:26 Assessment/Plan Assessment/Plan Additional Assessment/Plan Assessment recommendations; 1. Patient admitted for GI bleed with stable hematocrit, however a small amount of lower GI bleed has been noted again. 2. End-stage renal disease, on hemodialysis. 3. History of recent respiratory failure. Continue current supportive care. Monitor H&H. Consultation Date/Type/Reason Admit Date/Time Sep 20, 2016 at 19:21 Initial Consult Date 09/23/16 Type of Consultation: Pulmonary ICU Referring Provider: ZANDRA ROBISON MD, [facility] 24 HR Interval Summary Free Text/Dictation Patient condition is stable. However very minimal lower GI bleed has been noted again. She denies any shortness of breath, chest pain, abdominal pain, nausea vomiting. General exam; elderly woman, currently in no distress. Exam/Review of Systems Vital Signs Vitals Vital Signs Date Time Temp Pulse Resp B/P Pulse Ox O2 Delivery O2 Flow Rate FiO2 11/11/16 08:00 85 11/11/16 07:43 11 100 Nasal Cannula 2.0 11/11/16 06:00 99/51 11/11/16 04:00 98.1 11/11/16 01:17 Intake and Output 11/10/16 11/10/16 11/11/16 15:00 23:00 07:00 Intake Total 800 ml 75 ml 60 ml Output Total 3300 ml 0 ml 0 ml Balance -2500 ml 75 ml 60 ml Exam HEENT exam; supple neck, positive JVD. No lymphadenopathy. Midline trachea. No thyromegaly. Pharynx clear. Pupils are small bilaterally. Chest examination; minimally decreased breath on lung bases bilaterally. Upper lobes are clear. S1-S2 audible, no murmurs. Regular rhythm. Abdomen examination; soft, nondistended, no organomegaly. Bowel sounds audible. Extremity exam is; no peripheral edema. There are multiple ecchymosis involving all 4 extremities. [employer] examination; no focal deficit. Results Result Diagram: 11/11/16 0500 11/11/16 0500 Results 24 hrs Laboratory Tests Test 11/10/16 09:57 11/10/16 11:21 11/10/16 13:03 11/10/16 17:50 Hemoglobin 11.2 L Hematocrit 36.4 L Blood Gas Specimen Source Blood arterial Arterial Blood Date Drawn 11/10/2016 11:55:35 AM Arterial Blood pH (Temp corrected) 7.386 Arterial Blood pCO2 (Temp correct) 48.0 H Arterial Blood pO2 (Temp corrected) 117.6 H Arterial Blood HCO3 28.1 H Arterial Blood Base Excess 2.5 Arterial Blood Oxygen Saturation 98.2 H Raz Test ACCEPTAB Arterial Blood Gas Puncture Site Right Radial Arterial Blood Carboxyhemoglobin 0.6 Arterial Blood Methemoglobin 0.4 Blood Gas A-a O2 Differential 39.9 H Oxyhemoglobin Percent 97.2 Total Hemoglobin 11.2 L Blood Gas Temperature 37.0 Blood Gas Actual Respiration Rate 16 Blood Gas Modality NASAL CANNULA FiO2 30.0 Blood Gas Critical Value Read Back Vladimir LLANES RN Blood Gas Notified Whom RDIX Blood Gas Notified Time 11/10/2016 12:09:09 PM Bedside Glucose 194 171 Test 11/10/16 18:56 11/10/16 23:29 11/11/16 02:35 11/11/16 05:00 Hemoglobin 9.6 L 9.2 L 9.0 L Hematocrit 30.1 L 29.3 L 29.7 L Bedside Glucose 203 White Blood Count 11.0 H Red Blood Count 3.08 L Mean Corpuscular Volume 96.4 Mean Corpuscular Hemoglobin 29.2 Mean Corpuscular Hemoglobin Concent 30.3 L Red Cell Distribution Width 20.8 H Platelet Count 101 L Mean Platelet Volume 11.0 H Neutrophils % 66.5 Lymphocytes % 21.0 Monocytes % 8.5 Eosinophils % 2.1 Basophils % 0.3 Nucleated Red Blood Cells % 0.2 H Neutrophils # 7.3 Lymphocytes # 2.3 Monocytes # 0.9 Eosinophils # 0.2 Basophils # 0.0 Nucleated Red Blood Cells # 0.0 Sodium Level 134 L Potassium Level 3.9 Chloride Level 101 Carbon Dioxide Level 27 Anion Gap 10 Blood Urea Nitrogen 32 #H Creatinine 1.93 H Glucose Level 215 Calcium Level 8.4 Phosphorus Level 3.3 Magnesium Level 2.1 Test 11/11/16 05:16 11/11/16 05:42 11/11/16 07:00 Lab Scanned Report BLOOD TRANSFUSION Bedside Glucose 223 H Blood Gas Specimen Source Blood arterial Arterial Blood Date Drawn 11/11/2016 7:40:17 AM Arterial Blood pH (Temp corrected) 7.374 Arterial Blood pCO2 (Temp correct) 45.8 H Arterial Blood pO2 (Temp corrected) 153.2 H Arterial Blood HCO3 26.1 H Arterial Blood Base Excess 0.7 Arterial Blood Oxygen Saturation 98.8 H Raz Test ACCEPTAB Arterial Blood Gas Puncture Site Left Radial Arterial Blood Carboxyhemoglobin 0.3 Arterial Blood Methemoglobin 0.4 Blood Gas A-a O2 Differential 6.9 L Oxyhemoglobin Percent 98.1 Total Hemoglobin 9.8 L Blood Gas Temperature 37.0 Blood Gas Modality NASAL CANNULA FiO2 30.0 Blood Gas Notified Whom JLD Blood Gas Notified Time 11/11/2016 8:43:46 AM Medications Medications Current Medications Acetaminophen (Tylenol Liquid) 650 mg Q4H PRN NGT PAIN AND OR ELEVATED TEMP Last administered on 11/09/16 11:10; Admin Dose 650 MG; Start 09/21/16 at 02:00 Pantoprazole (Protonix Iv) 40 mg AM IV Last administered on 11/11/16 08:35; Admin Dose 40 MG; Start 09/26/16 at 09:00 Epoetin Raj (Epogen (Esrd)) 10,000 units TuThSa@17 SC Last administered on 11/09 17:55; Admin Dose 10,000 UNITS; Start 09/26/16 at 17:00 IV Flush (NS 10 ml) 10 ml PRN PRN IV IV PROTOCOL; Start 09/26/16 at 17:30 Dextrose (D50w Syringe) 25 ml Q15M PRN IV DECREASED GLUCOSE Last administered on 11/01/16 21:38; Admin Dose 25 ML; Start 10/09/16 at 20:30 Calcium Carbonate (Tums) 500 mg TID NGT Last administered on 11/11/16 08:36; Admin Dose 500 MG; Start 10/15/16 at 21:00 Metoprolol Tartrate (Lopressor) 25 mg BID PO Last administered on 11/09/16 20: 43; Admin Dose 25 MG; Start 10/20/16 at 21:00 Lactulose (Enulose) 20 gm BID PRN PO CONSTIPATION Last administered on 12:57; Admin Dose 20 GM; Start 10/23/16 at 10:30 Lactobacillus Acidophilus (Florajen3 Capsule) 1 each TID PO Last administered on 11/10/16 20:18; Admin Dose 1 EACH; Start 10/25/16 at 13:30 Amylase/Lipase/ Protease (CREON (12n-[id number])) 3 cap Q6 NGT Last administered on 11/11/16 05:40; Admin Dose 3 CAP; Start 10/29/16 at 13:00 Latanoprost (Xalatan) 1 drop HS BOTH EYES Last administered on 11/10/16 20:18; Admin Dose 1 DROP; Start 10/31/16 at 21:00 Dorzolamide/ Timolol (Cosopt) 1 drop BID BOTH EYES Last administered on 08:35; Admin Dose 1 DROP; Start 10/31/16 at 21:00 Insulin Aspart (Novolog Insulin Pen) NOVOLOG *MODERATE* ALGORI... Q6 SC Last administered on 11/11/16 05:45; Admin Dose 6 UNIT; Start 11/03/16 at 18:00 Miscellaneous Information 1 ea NOTE XX ; Start 11/03/16 at 18:00 Glucagon (Glucagen) 1 mg Q15M PRN IM DECREASED GLUCOSE; Start 11/03/16 at 18:00 Glucose (Glutose) 15 gm Q15M PRN BUCCAL DECREASED GLUCOSE; Start 11/03/16 at 18 :00 Ondansetron HCl (Zofran Inj) 4 mg Q4H PRN IV NAUSEA AND/OR VOMITING Last administered on 11/09/16 15:21; Admin Dose 4 MG; Start 11/04/16 at 23:00 Eye Lubricant (Artificial Tears Oph) 2 drop QID BOTH EYES Last administered on 11/11/16 08:35; Admin Dose 2 DROP; Start 11/07/16 at 09:00 Sodium Biphosphate/ Sodium Phosphate (Fleet Enema) 133 ml DAILY PRN [place] CONSTIPATION; Start 11/07/16 at 19:00 Metoclopramide HCl (Reglan) 5 mg TID IV Last administered on 11/11/16 08:36; Admin Dose 5 MG; Start 11/09/16 at 13:00 Calcium Carbonate (Tums Ex) 750 mg Q6H PRN PO dyspepsia Last administered on 08:12; Admin Dose 750 MG; Start 11/09/16 at 12:30 Insulin Glargine (Lantus) 8 unit DAILY@20 SC Last administered on 5/6/17at 20: 55; Admin Dose 8 UNIT; Start 11/09/16 at 20:00; Status Future Hold Morphine Sulfate (morphine) 1 mg Q3H PRN IV pain; Start 11/10/16 at 08:00 ADIS CAMACHO November 11, 2016 09:28
[2016-11-11 11:53] LABS: HEMATOCRIT 39.8 % (37.0-47.0); HEMOGLOBIN 12.6 g/dl (12.0-16.0)
[2016-11-11] MEDS ORDERED: PEG/ELECTROLYTES 4L BTL PO ONE (13:00)
[2016-11-11 18:02] LABS: HEMATOCRIT 32.3 % (37.0-47.0); HEMOGLOBIN 10.1 g/dl (12.0-16.0)
[2016-11-11] MEDS: LATANOPROST 0.005% 2.5 ML OPH BOTH EYES SCH (21:37)
[2016-11-11 23:42] LABS: HEMATOCRIT 30.5 % (37.0-47.0); HEMOGLOBIN 9.6 g/dl (12.0-16.0)
[2016-11-12] VITALS (31 sets, daily range): BP systolic 90–126; BP diastolic 37–77; PULSE 81–112; RESP 8–20
[2016-11-12] MEDS: LEVALBUTEROL (NEB) 1.25 MG/0.5 ML AMP HHN SCH ×4 (01:42→20:29)
[2016-11-12] MEDS: IPRATROPIUM (NEB) 0.5 MG/2.5 ML AMP HHN SCH ×4 (01:43→20:29)
[2016-11-12] MEDS: CREON (12k-38k-60k) 1 CAP NGT SCH ×3 (05:21→18:00)
[2016-11-12] MEDS: INSULIN ASPART [NOVOLOG] 3 ML PEN SC SCH ×3 (05:23→18:30)
[2016-11-12 05:33] LABS: HEMATOCRIT 30.3 % (37.0-47.0); HEMOGLOBIN 9.4 g/dl (12.0-16.0)
[2016-11-12 05:49] LABS: ALBUMIN 2.2 g/dl (3.3-4.9)
[2016-11-12 05:52] LABS: ALBUMIN/GLOBULIN RATIO 0.81; BILIRUBIN,INDIRECT 0.2 mg/dl (0-1.1); BILIRUBIN,TOTAL 0.2 mg/dl (0.2-1.3); CREATININE 2.01 mg/dl (0.44-1.00); INR 1.85; PROTIME 21.5 Sec (12.2-14.2); PT RATIO 1.7; TOTAL PROTEIN 4.9 g/dl (6.1-8.1)
[2016-11-12 05:53] LABS: CALCIUM 8.1 mg/dl (8.4-10.2); PARTIAL THROMBOPLASTIN TIME 35.1 Sec (25.0-35.0)
[2016-11-12] MEDS ORDERED: POTASSIUM CHLORIDE 20 MEQ POWDER FOR ORAL SOLN GTB ONE (08:00)
--- NOTE | 2016-11-12 08:00 | CONS ---
Date/Time of Note Date/Time of Note DATE: 11/12/16 TIME: 07:53 Assessment/Plan Assessment/Plan Chief Complaint/Hosp Course 1. Acute Renal Failure due to ATN . She is now on maintenance hemodialysis . She still has evidence of volume overload . She had DUF yesterday with 1 liter removed . Hemodialysis being done now . Fluid removal limited by low BP . Albumin has been given . 2. ALOC , she continues to be very weak and lethargic , but more awake today. 3. liver enzyme elevation due to anoxia , enzymes are decreasing . 4. CHF , she continues to have lung congestion and peripheral edema . 5. hypocalcemia/hypoalbuminemia , calcium is higher 6. anemia , She has been having some GI bleeding . GI work in progress. 7. peripheral vascular disease . 8. respiratory failure , now on nasal canula . 9 dysphagia , she has a PEG . Problems: Consultation Date/Type/Reason Admit Date/Time Sep 20, 2016 at 19:21 Initial Consult Date 09/23/16 Type of Consultation: Pulmonary ICU Referring Provider: [facility]DR[facility] ROBISON MD, [facility] HR Interval Summary Free Text/Dictation She is in the ICU , awake and responsive . She is currently having hemodialysis . Exam/Review of Systems Vital Signs Vitals Vital Signs Date Time Temp Pulse Resp B/P Pulse Ox O2 Delivery O2 Flow Rate FiO2 11/12/16 07:30 96 11/12/16 07:00 15 97/44 100 Nasal Cannula 2.0 11/12/16 04:00 98.3 11/11/16 01:17 Intake and Output 11/11/16 11/11/16 11/12/16 15:00 23:00 07:00 Intake Total 1340 ml 4000 ml 250 ml Output Total 3500 ml Balance -2160 ml 4000 ml 250 ml Exam Constitutional: alert, obese, oriented Respiratory: clear to auscultation Cardiovascular: edema, regular rate and rhythm Gastrointestinal: soft Extremities: edema Results Result Diagram: 11/12/16 0400 11/12/16 0410 Results 24 hrs Laboratory Tests Test 11/11/16 10:40 11/11/16 12:33 11/11/16 17:35 11/11/16 17:43 Hemoglobin 12.6 # 10.1 L Hematocrit 39.8 # 32.3 L Bedside Glucose 196 247 H Test 11/11/16 23:30 11/12/16 04:00 11/12/16 04:10 11/12/16 04:40 Hemoglobin 9.6 L 9.4 L Hematocrit 30.5 L 30.3 L Bedside Glucose 283 H Prothrombin Time 21.5 #H Prothrombin Time Ratio 1.7 INR International Normalized Ratio 1.85 Activated Partial Thromboplast Time 35.1 H Sodium Level 141 Potassium Level 3.0 L Chloride Level 100 Carbon Dioxide Level 23 Anion Gap 21 #H Blood Urea Nitrogen 34 H Creatinine 2.01 H Glucose Level 212 Calcium Level 8.1 L Total Bilirubin 0.2 Direct Bilirubin 0.00 Indirect Bilirubin 0.2 Aspartate Amino Transf (AST/SGOT) 34 Alanine Aminotransferase (ALT/SGPT) 27 Alkaline Phosphatase 109 Total Protein 4.9 L Albumin 2.2 L Globulin 2.70 Albumin/Globulin Ratio Pending Lab Scanned Report BLOOD TRANSFUSION Test 11/12/16 05:21 Bedside Glucose 232 H Medications Medications Current Medications Acetaminophen (Tylenol Liquid) 650 mg Q4H PRN NGT PAIN AND OR ELEVATED TEMP Last administered on 11/09/16 11:10; Admin Dose 650 MG; Start 09/21/16 at 02:00 Pantoprazole (Protonix Iv) 40 mg AM IV Last administered on 11/11/16 08:35; Admin Dose 40 MG; Start 09/26/16 at 09:00 Epoetin Raj (Epogen (Esrd)) 10,000 units TuTa@17 SC Last administered on 11/09 17:55; Admin Dose 10,000 UNITS; Start 09/26/16 at 17:00 IV Flush (NS 10 ml) 10 ml PRN PRN IV IV PROTOCOL; Start 09/26/16 at 17:30 Dextrose (D50w Syringe) 25 ml Q15M PRN IV DECREASED GLUCOSE Last administered on 11/01/16 21:38; Admin Dose 25 ML; Start 10/09/16 at 20:30 Calcium Carbonate (Tums) 500 mg TID NGT Last administered on 11/11/16 21:38; Admin Dose 500 MG; Start 10/15/16 at 21:00 Metoprolol Tartrate (Lopressor) 25 mg BID PO Last administered on 11/11/16 21: 38; Admin Dose 25 MG; Start 10/20/16 at 21:00 Lactulose (Enulose) 20 gm BID PRN PO CONSTIPATION Last administered on 12:57; Admin Dose 20 GM; Start 10/23/16 at 10:30 Lactobacillus Acidophilus (Florajen3 Capsule) 1 each TID PO Last administered on 11/11/16 21:39; Admin Dose 1 EACH; Start 10/25/16 at 13:30 Amylase/Lipase/ Protease (CREON ([id number])) 3 cap Q6 NGT Last administered on 11/12/16 05:21; Admin Dose 3 CAP; Start 10/29/16 at 13:00 Latanoprost (Xalatan) 1 drop HS BOTH EYES Last administered on 11/11/16 21:37; Admin Dose 1 DROP; Start 10/31/16 at 21:00 Dorzolamide/ Timolol (Cosopt) 1 drop BID BOTH EYES Last administered on 21:38; Admin Dose 1 DROP; Start 10/31/16 at 21:00 Insulin Aspart (Novolog Insulin Pen) NOVOLOG *MODERATE* ALGORI... Q6 SC Last administered on 11/12/16 05:23; Admin Dose 6 UNIT; Start 11/03/16 at 18:00 Miscellaneous Information 1 ea NOTE XX ; Start 11/03/16 at 18:00 Glucagon (Glucagen) 1 mg Q15M PRN IM DECREASED GLUCOSE; Start 11/03/16 at 18:00 Glucose (Glutose) 15 gm Q15M PRN BUCCAL DECREASED GLUCOSE Last administered on 11/12/16 06:49; Admin Dose 15 GM; Start 11/03/16 at 18:00 Ondansetron HCl (Zofran Inj) 4 mg Q4H PRN IV NAUSEA AND/OR VOMITING Last administered on 11/09/16 15:21; Admin Dose 4 MG; Start 11/04/16 at 23:00 Eye Lubricant (Artificial Tears Oph) 2 drop QID BOTH EYES Last administered on 11/11/16 21:37; Admin Dose 2 DROP; Start 11/07/16 at 09:00 Sodium Biphosphate/ Sodium Phosphate (Fleet Enema) 133 ml DAILY PRN [place] CONSTIPATION; Start 11/07/16 at 19:00 Metoclopramide HCl (Reglan) 5 mg TID IV Last administered on 11/11/16 21:38; Admin Dose 5 MG; Start 11/09/16 at 13:00 Calcium Carbonate (Tums Ex) 750 mg Q6H PRN PO dyspepsia Last administered on 08:12; Admin Dose 750 MG; Start 11/09/16 at 12:30 Insulin Glargine (Lantus) 8 unit DAILY@20 SC Last administered on 11/09/16 20: 55; Admin Dose 8 UNIT; Start 11/09/16 at 20:00; Status Future Hold Morphine Sulfate (morphine) 1 mg Q3H PRN IV pain; Start 11/10/16 at 08:00 DAMIR MARTINEZ MD November 12, 2016 08:00
[2016-11-12] MEDS: DORZOLAMIDE/TIMOLOL 10 ML OPH BOTH EYES SCH ×2 (08:11→21:09)
[2016-11-12] MEDS: L ACIDOPHIL/B LACTIS/B LONGUM CAPSULE PO SCH ×3 (08:12→22:05)
[2016-11-12] MEDS: PANTOPRAZOLE 40 MG INJ IV SCH (08:12)
[2016-11-12] MEDS: METOCLOPRAMIDE 10 MG INJ IV SCH ×3 (08:12→21:07)
[2016-11-12] MEDS: CALCIUM CARBONATE 500 MG CHEW TAB NGT SCH ×3 (08:12→21:09)
[2016-11-12] MEDS: METOPROLOL 25 MG TAB PO SCH ×2 (08:12→21:00)
[2016-11-12] MEDS: ARTIFICIAL TEARS 15 ML OPH BOTH EYES SCH ×4 (08:13→21:09)
--- NOTE | 2016-11-12 08:39 | PN ---
Date/Time of Note Date/Time of Note DATE: 11/12/16 TIME: 08:36 Assessment/Plan Lines/Catheters IV Catheter Type (from [facility]): PICC Line Rivas in Place (from [facility]): No Assessment/Plan Chief Complaint/Hosp Course -Acute renal failure: S/P Emergent Maninder catheter placement. S/P Perm cath -Bilateral lower extremity atherosclerosis with gangrene: It seems the patient has developed bilateral toe discoloration/gangrene. 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 Will likely require CTA of abdomen and pelvis for possible aortoiliac disease as a source. However, considering recent renal failure will await her renal function. Arterial U/S demonstrate triphasic flow and toe discolorations improving with development of eschar now. -No current vascular intervention needed. Will follow as needed -Optimize vascular status (BP meds, diet, nutrition, exercise, sugar control, antiplatelets). -Discussed findings, plan and management with the primary service, and we will plan to notify family. -Thank you for allowing us to partake in the care of your patient. Please call with any questions. Problems: Subjective 24 Hr Interval Summary no new vascular events overnight, tolerating HD this morning Exam/Review of Systems Vital Signs Vitals Vital Signs Date Time Temp Pulse Resp B/P Pulse Ox O2 Delivery O2 Flow Rate FiO2 11/12/16 07:30 96 11/12/16 07:00 15 97/44 100 Nasal Cannula 2.0 11/12/16 04:00 98.3 11/11/16 01:17 Intake and Output 11/11/16 11/11/16 11/12/16 15:00 23:00 07:00 Intake Total 1340 ml 4000 ml 250 ml Output Total 3500 ml Balance -2160 ml 4000 ml 250 ml Exam Free Text/Dictation GENERAL: awake, PULMONARY: Coarse breath sounds bilaterally., Right perm cath intact CARDIOVASCULAR: S1, S2 present. ABDOMEN: Soft, nontender, nondistended. Bowel sounds positive. Large truncal obesity and pannus. LOWER EXTREMITIES: RLE: Palpable femoral pulse, nonpalpable pedal pulses. Motor, sensory intact,. Capillary refill 2-3 seconds.right 1-3rd toes dry eschar LLE: Palpable femoral pulse, nonpalpable pedal pulses. Motor, sensory intact 2nd toe eschar Results Result Diagram: 11/12/16 0400 11/12/16 0410 OG RODAS MD November 12, 2016 08:39
--- NOTE | 2016-11-12 11:02 | CONS ---
Date/Time of Note Date/Time of Note DATE: 11/12/16 TIME: 11:00 Assessment/Plan Assessment/Plan Additional Assessment/Plan Assessment recommendations; next 1. Patient admitted for anemia, with GI bleed. With stable hematocrit now. 2. History of recent respiratory failure due to severe bilateral pneumonia doing fairly well from that standpoint. 3. Chronic renal failure, on hemodialysis. 4. Diabetes. 5. Hypertension. Continue current treatment. Patient can be transferred to the medical floor. Consultation Date/Type/Reason Admit Date/Time Sep 20, 2016 at 19:21 Initial Consult Date 09/23/16 Type of Consultation: Pulmonary ICU Referring Provider: ZANDRA ROBISON MD, [facility] 24 HR Interval Summary Free Text/Dictation Patient condition is stable. Has remained hemodynamically stable. No untoward events reported. Remains awake. General exam; elderly woman, currently in no distress. Exam/Review of Systems Vital Signs Vitals Vital Signs Date Time Temp Pulse Resp B/P Pulse Ox O2 Delivery O2 Flow Rate FiO2 11/12/16 08:00 99 11/12/16 08:00 15 11/12/16 07:00 97/44 100 Nasal Cannula 2.0 11/12/16 04:00 98.3 11/11/16 01:17 Intake and Output 11/11/16 11/11/16 11/12/16 15:00 23:00 07:00 Intake Total 1340 ml 4000 ml 250 ml Output Total 3500 ml Balance -2160 ml 4000 ml 250 ml Exam HEENT exam is; supple neck, positive JVD. No lymphadenopathy. Midline trachea. No thyromegaly. Chest examination; minimally decreased breath on lung bases bilaterally. No added sounds. S1-S2 audible, no murmurs. Regular rhythm. Abdomen examination; soft, nondistended, nontender. No organomegaly. Bowel sounds audible. Extremity examination; no peripheral edema. 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 IT NETWORK ARCHITECT examination; patient is awake. Results Result Diagram: 11/12/16 0400 11/12/16 0410 Results 24 hrs Laboratory Tests Test 11/11/16 12:33 11/11/16 17:35 11/11/16 17:43 11/11/16 23:30 Bedside Glucose 196 247 H 283 H Hemoglobin 10.1 L 9.6 L Hematocrit 32.3 L 30.5 L Test 11/12/16 04:00 11/12/16 04:10 11/12/16 04:40 11/12/16 05:21 Hemoglobin 9.4 L Hematocrit 30.3 L Prothrombin Time 21.5 #H Prothrombin Time Ratio 1.7 INR International Normalized Ratio 1.85 Activated Partial Thromboplast Time 35.1 H Sodium Level 141 Potassium Level 3.0 L Chloride Level 100 Carbon Dioxide Level 23 Anion Gap 21 #H Blood Urea Nitrogen 34 H Creatinine 2.01 H Glucose Level 212 Calcium Level 8.1 L Total Bilirubin 0.2 Direct Bilirubin 0.00 Indirect Bilirubin 0.2 Aspartate Amino Transf (AST/SGOT) 34 Alanine Aminotransferase (ALT/SGPT) 27 Alkaline Phosphatase 109 Total Protein 4.9 L Albumin 2.2 L Globulin 2.70 Albumin/Globulin Ratio 0.81 Lab Scanned Report BLOOD TRANSFUSION Bedside Glucose 232 H Medications Medications Current Medications Acetaminophen (Tylenol Liquid) 650 mg Q4H PRN NGT PAIN AND OR ELEVATED TEMP Last administered on 11/09/16 11:10; Admin Dose 650 MG; Start 09/21/16 at 02:00 Pantoprazole (Protonix Iv) 40 mg AM IV Last administered on 11/12/16 08:12; Admin Dose 40 MG; Start 09/26/16 at 09:00 Epoetin Raj (Epogen (Esrd)) 10,000 units TuThSa@17 SC Last administered on 11/09 17:55; Admin Dose 10,000 UNITS; Start 09/26/16 at 17:00 IV Flush (NS 10 ml) 10 ml PRN PRN IV IV PROTOCOL; Start 09/26/16 at 17:30 Dextrose (D50w Syringe) 25 ml Q15M PRN IV DECREASED GLUCOSE Last administered on 11/01/16 21:38; Admin Dose 25 ML; Start 10/09/16 at 20:30 Calcium Carbonate (Tums) 500 mg TID NGT Last administered on 11/12/16 08:12; Admin Dose 500 MG; Start 10/15/16 at 21:00 Metoprolol Tartrate (Lopressor) 25 mg BID PO Last administered on 11/11/16 21: 38; Admin Dose 25 MG; Start 10/20/16 at 21:00 Lactulose (Enulose) 20 gm BID PRN PO CONSTIPATION Last administered on 12:57; Admin Dose 20 GM; Start 10/23/16 at 10:30 Lactobacillus Acidophilus (Florajen3 Capsule) 1 each TID PO Last administered on 11/12/16 08:12; Admin Dose 1 EACH; Start 10/25/16 at 13:30 Amylase/Lipase/ Protease (CREON (12i-38k-60k)) 3 cap Q6 NGT Last administered on 11/12/16 05:21; Admin Dose 3 CAP; Start 10/29/16 at 13:00 Latanoprost (Xalatan) 1 drop HS BOTH EYES Last administered on 11/11/16 21:37; Admin Dose 1 DROP; Start 10/31/16 at 21:00 Dorzolamide/ Timolol (Cosopt) 1 drop BID BOTH EYES Last administered on 08:11; Admin Dose 1 DROP; Start 10/31/16 at 21:00 Insulin Aspart (Novolog Insulin Pen) NOVOLOG *MODERATE* ALGORI... Q6 SC Last administered on 11/12/16 05:23; Admin Dose 6 UNIT; Start 11/03/16 at 18:00 Miscellaneous Information 1 ea NOTE XX ; Start 11/03/16 at 18:00 Glucagon (Glucagen) 1 mg Q15M PRN IM DECREASED GLUCOSE; Start 11/03/16 at 18:00 Glucose (Glutose) 15 gm Q15M PRN BUCCAL DECREASED GLUCOSE Last administered on 11/12/16 06:49; Admin Dose 15 GM; Start 11/03/16 at 18:00 Ondansetron HCl (Zofran Inj) 4 mg Q4H PRN IV NAUSEA AND/OR VOMITING Last administered on 11/09/16 15:21; Admin Dose 4 MG; Start 11/04/16 at 23:00 Eye Lubricant (Artificial Tears Oph) 2 drop QID BOTH EYES Last administered on 11/12/16 08:13; Admin Dose 2 DROP; Start 11/07/16 at 09:00 Sodium Biphosphate/ Sodium Phosphate (Fleet Enema) 133 ml DAILY PRN [place] CONSTIPATION; Start 11/07/16 at 19:00 Metoclopramide HCl (Reglan) 5 mg TID IV Last administered on 11/12/16 08:12; Admin Dose 5 MG; Start 11/09/16 at 13:00 Calcium Carbonate (Tums Ex) 750 mg Q6H PRN PO dyspepsia Last administered on 08:12; Admin Dose 750 MG; Start 11/09/16 at 12:30 Insulin Glargine (Lantus) 8 unit DAILY@20 SC Last administered on 11/09/16 20: 55; Admin Dose 8 UNIT; Start 11/09/16 at 20:00; Status Future Hold Morphine Sulfate (morphine) 1 mg Q3H PRN IV pain; Start 11/10/16 at 08:00 ADIS CAMACHO November 12, 2016 11:02
--- NOTE | 2016-11-12 13:44 | PN ---
Date/Time of Note Date/Time of Note DATE: 11/11/16 TIME: 13:38 Assessment/Plan VTE Prophylaxis VTE Prophylaxis Intervention: contraindicated (rectal bleed, severe anemia) Lines/Catheters IV Catheter Type (from Nrsg): PICC Line Central line still needed: No Urinary Cath still in place: No Reason Cath still needed: terminal illness/intractable pain Assessment/Plan Assessment/Plan 1. rectal bleed/ anemia 2. cad--stent/ pad/ low bp 3. ards/ weak coughs 4. arf--dialysis/ edema 5. depression-anxiety 6. obesity 7. weak musc/ dysphagia--PEG feed --- per GI --- per pulm --- per renal --- hold all anticoag --- cont all supportive cares Subjective 24 Hr Interval Summary Free Text/Dictation "weak, unhappy" SHAMA LOPEZ MD November 12, 2016 13:44
--- NOTE | 2016-11-12 13:49 | PN ---
Date/Time of Note Date/Time of Note DATE: 11/12/16 TIME: 13:44 Assessment/Plan VTE Prophylaxis VTE Prophylaxis Intervention: contraindicated (gi bleed, anemia) Lines/Catheters IV Catheter Type (from Nrsg): PICC Line Central line still needed: No Urinary Cath still in place: No Reason Cath still needed: terminal illness/intractable pain Assessment/Plan Assessment/Plan 1. GI BLEED/ ANEMIA-- POST TRANSFUSION/ EGD, NO MORE ACUTE BLEED 2. CAD/ PAD/ BUT LOW BP 3. ARDS/ WEAK COUGHS 4. ARF--DIALYSIS/ EDEMA 5. DM 6. OBESITY 7. DEPRESSION-ANXIETY 8. WEAK MUSC/ DYSPHAGIA--PEG FEED ---HOLD ALL ANTICOAG TO CONT ---REPLACE K ---CONT ALL SUPPORTIVE CARES ---PER GI/ CARDS/ PULM/ RENAL ---WILL DISCUSS CODE STATUS RE: FUTURE INTUBATION/ CPR Subjective 24 Hr Interval Summary Free Text/Dictation awake, "difficult" Exam/Review of Systems Vital Signs Vitals Vital Signs Date Time Temp Pulse Resp B/P Pulse Ox O2 Delivery O2 Flow Rate FiO2 11/12/16 12:00 111 11/12/16 09:05 14 98 Nasal Cannula 2.0 11/12/16 07:00 97/44 11/12/16 04:00 98.3 11/11/16 01:17 Intake and Output 11/11/16 11/11/16 11/12/16 14:59 22:59 06:59 Intake Total 1090 ml 3750 ml 750 ml Output Total 3500 ml Balance -2410 ml 3750 ml 750 ml Exam obese, in bed, global edema+ dec bs+ rr soft, PEG tube site clean toes blue black+ Results Result Diagram: 11/12/16 0400 11/12/16 0410 Results 24 hrs Laboratory Tests Test 11/11/16 17:35 11/11/16 17:43 11/11/16 23:30 11/12/16 04:00 Hemoglobin 10.1 L 9.6 L 9.4 L Hematocrit 32.3 L 30.5 L 30.3 L Bedside Glucose 247 H 283 H Test 11/12/16 04:10 11/12/16 04:40 11/12/16 05:21 11/12/16 12:34 Prothrombin Time 21.5 #H Prothrombin Time Ratio 1.7 INR International Normalized Ratio 1.85 Activated Partial Thromboplast Time 35.1 H Sodium Level 141 Potassium Level 3.0 L Chloride Level 100 Carbon Dioxide Level 23 Anion Gap 21 #H Blood Urea Nitrogen 34 H Creatinine 2.01 H Glucose Level 212 Calcium Level 8.1 L Total Bilirubin 0.2 Direct Bilirubin 0.00 Indirect Bilirubin 0.2 Aspartate Amino Transf (AST/SGOT) 34 Alanine Aminotransferase (ALT/SGPT) 27 Alkaline Phosphatase 109 Total Protein 4.9 L Albumin 2.2 L Globulin 2.70 Albumin/Globulin Ratio 0.81 Lab Scanned Report BLOOD TRANSFUSION Bedside Glucose 232 H 290 H Medications Medications Current Medications Acetaminophen (Tylenol Liquid) 650 mg Q4H PRN NGT PAIN AND OR ELEVATED TEMP Last administered on 11/09/16 11:10; Admin Dose 650 MG; Start 09/21/16 at 02:00 Pantoprazole (Protonix Iv) 40 mg AM IV Last administered on 11/12/16 08:12; Admin Dose 40 MG; Start 09/26/16 at 09:00 Epoetin Raj (Epogen (Esrd)) 10,000 units TuThSa@17 SC Last administered on 11/09 17:55; Admin Dose 10,000 UNITS; Start 09/26/16 at 17:00 IV Flush (NS 10 ml) 10 ml PRN PRN IV IV PROTOCOL; Start 09/26/16 at 17:30 Dextrose (D50w Syringe) 25 ml Q15M PRN IV DECREASED GLUCOSE Last administered on 11/01/16 21:38; Admin Dose 25 ML; Start 10/09/16 at 20:30 Calcium Carbonate (Tums) 500 mg TID NGT Last administered on 11/12/16 08:12; Admin Dose 500 MG; Start 10/15/16 at 21:00 Metoprolol Tartrate (Lopressor) 25 mg BID PO Last administered on 11/11/16 21: 38; Admin Dose 25 MG; Start 10/20/16 at 21:00 Lactulose (Enulose) 20 gm BID PRN PO CONSTIPATION Last administered on 12:57; Admin Dose 20 GM; Start 10/23/16 at 10:30 Lactobacillus Acidophilus (Florajen3 Capsule) 1 each TID PO Last administered on 11/12/16 08:12; Admin Dose 1 EACH; Start 10/25/16 at 13:30 Amylase/Lipase/ Protease (CREON (12k-38k-60k)) 3 cap Q6 NGT Last administered on 11/12/16 12:35; Admin Dose 3 CAP; Start 10/29/16 at 13:00 Latanoprost (Xalatan) 1 drop HS BOTH EYES Last administered on 11/11/16 21:37; Admin Dose 1 DROP; Start 10/31/16 at 21:00 Dorzolamide/ Timolol (Cosopt) 1 drop BID BOTH EYES Last administered on 08:11; Admin Dose 1 DROP; Start 10/31/16 at 21:00 Insulin Aspart (Novolog Insulin Pen) NOVOLOG *MODERATE* ALGORI... Q6 SC Last administered on 11/12/16 12:36; Admin Dose 8 UNIT; Start 11/03/16 at 18:00 Miscellaneous Information 1 ea NOTE XX ; Start 11/03/16 at 18:00 Glucagon (Glucagen) 1 mg Q15M PRN IM DECREASED GLUCOSE; Start 11/03/16 at 18:00 Glucose (Glutose) 15 gm Q15M PRN BUCCAL DECREASED GLUCOSE Last administered on 11/12/16 06:49; Admin Dose 15 GM; Start 11/03/16 at 18:00 Ondansetron HCl (Zofran Inj) 4 mg Q4H PRN IV NAUSEA AND/OR VOMITING Last administered on 11/09/16 15:21; Admin Dose 4 MG; Start 11/04/16 at 23:00 Eye Lubricant (Artificial Tears Oph) 2 drop QID BOTH EYES Last administered on 11/12/16 08:13; Admin Dose 2 DROP; Start 11/07/16 at 09:00 Sodium Biphosphate/ Sodium Phosphate (Fleet Enema) 133 ml DAILY PRN [place] CONSTIPATION; Start 11/07/16 at 19:00 Metoclopramide HCl (Reglan) 5 mg TID IV Last administered on 11/12/16 08:12; Admin Dose 5 MG; Start 11/09/16 at 13:00 Calcium Carbonate (Tums Ex) 750 mg Q6H PRN PO dyspepsia Last administered on 08:12; Admin Dose 750 MG; Start 11/09/16 at 12:30 Insulin Glargine (Lantus) 8 unit DAILY@20 SC Last administered on 11/09/16t 20: 55; Admin Dose 8 UNIT; Start 11/09/16 at 20:00; Status Future Hold Morphine Sulfate (morphine) 1 mg Q3H PRN IV pain; Start 11/10/16 at 08:00 SHAMA LOPEZ MD November 12, 2016 13:49
[2016-11-12 14:38] LABS: HEMATOCRIT 29.5 % (37.0-47.0)
[2016-11-12] MEDS ORDERED: POTASSIUM CHLORIDE 20 MEQ POWDER FOR ORAL SOLN PO ONE (16:00)
[2016-11-12] MEDS ORDERED: POTASSIUM CHLORIDE 50 ML IVPB ONE (16:00)
[2016-11-12] MEDS ORDERED: FENTAnyl 50 MCG/ML VIAL ONE (16:35)
[2016-11-12] MEDS ORDERED: PROPOFOL 40 ML ONE (16:35)
[2016-11-12] MEDS ORDERED: LIDOCAINE 2% (SDV) 5 ML INJ ONE (16:35)
[2016-11-12] MEDS ORDERED: PHENYLephrine (100 MCG/ML) 5ML SYG ONE (16:36)
[2016-11-12] MEDS: EPOETIN 10000 UNITS/1 ML INJ (ESRD) SC SCH (18:22)
--- NOTE | 2016-11-12 18:37 | GILP ---
DATE OF PROCEDURE: NAME OF PROCEDURE: Colonoscopy up to hepatic flexure. PREOPERATIVE DIAGNOSIS: The patient presenting with history of rectal bleeding requiring blood powers sfusion, rule out ischemic colitis, colorectal neoplasm, arteriovenous malformation, etc. POSTOPERATIVE DIAGNOSES: Suboptimal preparation up to hepatic flexure. Minimal internal and metal fabricator helper al hemorrhoids were noted. However, there is no evidence of active bleeding noted in the colon. DESCRIPTION OF PROCEDURE: After informed written consent was obtained, the patient was asked to lie on the left lateral side. Intravenous anesthesia was given by ASSOCIATE ENGINEER. When the patient became somno lent, the Olympus video colonoscope was introduced into the rectum. The scope was advanced up to th e hepatic flexure. A suboptimal preparation was noted. No active bleeding seen. No ischemic colit is, no neoplasm noted. However, because of the suboptimal preparation. Scope was withdrawn from th e hepatic flexure and, on the way out, minimal internal and external hemorrhoids were noted and the procedure was terminated. PLAN: Recommend continue present management. Dictated By: CIELO COWAN/JERROD Conf#: [id number] DID#: [id number] CC: SHAMA LOPEZ MD; TOVA WRIGHT MD; CIELO SANCHEZ MD;*EndCC*
--- NOTE | 2016-11-12 18:39 | GILP ---
DATE OF PROCEDURE: 11/12/2016 NAME OF PROCEDURE: Esophagogastroduodenoscopy. PREOPERATIVE DIAGNOSIS: Patient presenting with history of having rectal bleeding with hemoglobin d ropping significantly, requiring blood transfusion, rule out gastrostomy site ulcer disease, rule ou t arteriovenous malformation, etc. POSTOPERATIVE DIAGNOSES: Ulcer noted at the gastrostomy site but no active bleeding noted at this t priti. Esophagus and duodenum appeared normal. DESCRIPTION OF PROCEDURE: After informed written consent was obtained, the patient was asked to lie on the left lateral side. Intravenous anesthesia was given by SUPERVISOR OF GUIDANCE AND TESTING. When the patient became somnolent, the Olympus video upper endoscope was introduced into the orophar ynx, then into the esophagus. Esophagus appeared to show normal findings with no esophagitis, no bl eeding. Stomach was examined. At the site of gastrostomy, there is evidence of a circumferential u lcer noted, which is caused by the impression flow of the G-tube, but no active bleeding noted. The rest of the stomach appeared normal. Duodenum was examined up to the end of the third portion, whi ch appeared normal and no active bleeding noted. Endoscope at this time was withdrawn. The procedu re was terminated. PLAN: Recommend proceed with colonoscopy. Also recommend continue Protonix 40 mg IV q.12h. Dictated By: CIELO COWAN/JERROD Conf#: [id number] DID#: [id number] CC: SHAMA LOPEZ MD;*EndCC*
[2016-11-12] MEDS: CLOPIDOGREL 75 MG TAB GTB SCH (19:00)
[2016-11-12] MEDS: ASPIRIN 81 MG TAB GTB SCH (19:00)
[2016-11-12] MEDS: LATANOPROST 0.005% 2.5 ML OPH BOTH EYES SCH (21:09)
[2016-11-13] VITALS (29 sets, daily range): BP systolic 85–131; BP diastolic 42–59; PULSE 77–100; RESP 8–19
[2016-11-13] MEDS: CREON (12k-38k-60k) 1 CAP NGT SCH ×4 (00:15→18:27)
[2016-11-13] MEDS: INSULIN ASPART [NOVOLOG] 3 ML PEN SC SCH ×6 (00:23→22:20)
[2016-11-13 01:06] LABS: HEMATOCRIT 29.5 % (37.0-47.0); HEMOGLOBIN 9.2 g/dl (12.0-16.0)
[2016-11-13] MEDS: IPRATROPIUM (NEB) 0.5 MG/2.5 ML AMP HHN SCH ×4 (01:35→21:09)
[2016-11-13] MEDS: LEVALBUTEROL (NEB) 1.25 MG/0.5 ML AMP HHN SCH ×4 (01:35→21:09)
[2016-11-13 06:11] LABS: HEMATOCRIT 30.7 % (37.0-47.0)
[2016-11-13 06:24] LABS: ALBUMIN 2.6 g/dl (3.3-4.9)
[2016-11-13 06:25] LABS: POTASSIUM 4.3 mmol/L (3.5-5.1)
[2016-11-13 06:27] LABS: BILIRUBIN,INDIRECT 0.2 mg/dl (0-1.1); BILIRUBIN,TOTAL 0.2 mg/dl (0.2-1.3); CREATININE 1.66 mg/dl (0.44-1.00)
[2016-11-13 06:28] LABS: CALCIUM 8.7 mg/dl (8.4-10.2); TOTAL PROTEIN 5.4 g/dl (6.1-8.1)
[2016-11-13 06:31] LABS: ALBUMIN/GLOBULIN RATIO 0.92
--- NOTE | 2016-11-13 07:22 | PN ---
Date/Time of Note Date/Time of Note DATE: 11/13/16 TIME: 07:10 Assessment/Plan VTE Prophylaxis VTE Prophylaxis Intervention: SCD's Lines/Catheters IV [facility] PICC Line Central line still needed: Yes Urinary Cath still in place: No Assessment/Plan Chief Complaint/Hosp Course Patient admitted with stemi of inferior wall, with long recovery process. Problems: Assessment/Plan Impression: CAD, s/p STEMI of RCA nearly 2 months ago, still hospitalized with multiple complications now end-stage renal disease, new since admission GI bleeding, with stable hgb at present, post egd gangrene of toes, followed by endovascular piano accompanist Dr. Lima for potential future vascular intervention upper extremity DVT Recommendations: Patient has two drug-eluting stents placed less than two months ago. Cessation of antiplatelet therapy exposes her to risk of stent thrombosis. I have restarted aspirin and clopidogrel. It is noted that she is not on warfarin or Eliquis; were she to need anticoagulation with either of these, would recommend anticoagulant plus clopidogrel without aspirin. Continue metoprolol Atorvastatin was stopped for unclear reasons, and I will restart it for secondary prevention of cardiovascular events Subjective 24 Hr Interval Summary Free Text/Dictation Patient awake but confused. Chart reviewed, pt had PEG placement and GI bleed, and anticoagulation and antiplatelets were discontinued. Subjective hx not possible: other (confused) Exam/Review of Systems Vital Signs Vitals Vital Signs Date Time Temp Pulse Resp B/P Pulse Ox O2 Delivery O2 Flow Rate FiO2 11/13/16 06:15 97 11 119/52 100 Nasal Cannula 2.0 11/13/16 05:00 98.0 11/11/16 01:17 Intake and Output 11/12/16 11/12/16 11/13/16 15:00 23:00 07:00 Intake Total 420 ml 130 ml 480 ml Output Total 800 ml Balance -380 ml 130 ml 480 ml Exam Constitutional: alert, frail Psych: confusion Head: atraumatic, normocephalic Eyes: EOMI, nl conjunctiva ENMT: nl external ears & nose, nl lips & teeth, nl nasal mucosa & septum Neck: No bruits, No jvd Respiratory: clear to auscultation (anteriorly), normal air movement Cardiovascular: regular rate and rhythm, No murmurs/extra sounds Gastrointestinal: non-tender, soft Musculoskeletal: nl extremities to inspection Extremities: No edema Neurological: nl speech Skin: nl turgor, No rash or lesions Results Result Diagram: 11/13/1651911/13/16519 Results 24 hrs Laboratory Tests Test 11/12/16 12:34 11/12/16 14:15 11/12/16 18:26 11/13/16 00:20 Bedside Glucose 290 H 190 186 Hemoglobin 9.0 L Hematocrit 29.5 L Potassium Level 3.1 L Test 11/13/16 00:45 11/13/16 05:20 11/13/16 05:33 Hemoglobin 9.2 L 9.0 L Hematocrit 29.5 L 30.7 L Sodium Level 147 H Potassium Level 4.3 Chloride Level 109 Carbon Dioxide Level 20 L Anion Gap 22 H Blood Urea Nitrogen 26 H Creatinine 1.66 H Glucose Level 232 H Calcium Level 8.7 Total Bilirubin 0.2 Direct Bilirubin 0.00 Indirect Bilirubin 0.2 Aspartate Amino Transf (AST/SGOT) 38 Alanine Aminotransferase (ALT/SGPT) 33 Alkaline Phosphatase 116 Total Protein 5.4 L Albumin 2.6 L Globulin 2.80 Albumin/Globulin Ratio 0.92 Bedside Glucose 226 H Medications Medications Current Medications Acetaminophen (Tylenol Liquid) 650 mg Q4H PRN NGT PAIN AND OR ELEVATED TEMP Last administered on 11/09/16 11:10; Admin Dose 650 MG; Start 09/21/16 at 02:00 Pantoprazole (Protonix Iv) 40 mg AM IV Last administered on 11/12/16 08:12; Admin Dose 40 MG; Start 09/26/16 at 09:00 Epoetin Raj (Epogen (Esrd)) 10,000 units TuTa@17 SC Last administered on 11/12 18:22; Admin Dose 10,000 UNITS; Start 09/26/16 at 17:00 IV Flush (NS 10 ml) 10 ml PRN PRN IV IV PROTOCOL; Start 09/26/16 at 17:30 Dextrose (D50w Syringe) 25 ml Q15M PRN IV DECREASED GLUCOSE Last administered on 11/01/16 21:38; Admin Dose 25 ML; Start 10/09/16 at 20:30 Calcium Carbonate (Tums) 500 mg TID NGT Last administered on 11/12/16 21:09; Admin Dose 500 MG; Start 10/15/16 at 21:00 Metoprolol Tartrate (Lopressor) 25 mg BID PO Last administered on 11/11/16 21: 38; Admin Dose 25 MG; Start 10/20/16 at 21:00 Lactulose (Enulose) 20 gm BID PRN PO CONSTIPATION Last administered on 12:57; Admin Dose 20 GM; Start 10/23/16 at 10:30 Lactobacillus Acidophilus (Florajen3 Capsule) 1 each TID PO Last administered on 11/12/16 22:05; Admin Dose 1 EACH; Start 10/25/16 at 13:30 Amylase/Lipase/ Protease (CREON (24c-50a-74b)) 3 cap Q6 NGT Last administered on 11/13/16 05:39; Admin Dose 3 CAP; Start 10/29/16 at 13:00 Latanoprost (Xalatan) 1 drop HS BOTH EYES Last administered on 11/12/16 21:09; Admin Dose 1 DROP; Start 10/31/16 at 21:00 Dorzolamide/ Timolol (Cosopt) 1 drop BID BOTH EYES Last administered on 21:09; Admin Dose 1 DROP; Start 10/31/16 at 21:00 Insulin Aspart (Novolog Insulin Pen) NOVOLOG *MODERATE* ALGORI... Q6 SC Last administered on 11/13/16 05:40; Admin Dose 6 UNIT; Start 11/03/16 at 18:00 Miscellaneous Information 1 ea NOTE XX ; Start 11/03/16 at 18:00 Glucagon (Glucagen) 1 mg Q15M PRN IM DECREASED GLUCOSE; Start 11/03/16 at 18:00 Glucose (Glutose) 15 gm Q15M PRN BUCCAL DECREASED GLUCOSE Last administered on 11/12/16 06:49; Admin Dose 15 GM; Start 11/03/16 at 18:00 Ondansetron HCl (Zofran Inj) 4 mg Q4H PRN IV NAUSEA AND/OR VOMITING Last administered on 11/09/16 15:21; Admin Dose 4 MG; Start 11/04/16 at 23:00 Eye Lubricant (Artificial Tears Oph) 2 drop QID BOTH EYES Last administered on 11/12/16 21:09; Admin Dose 2 DROP; Start 11/07/16 at 09:00 Sodium Biphosphate/ Sodium Phosphate (Fleet Enema) 133 ml DAILY PRN [place] CONSTIPATION; Start 11/07/16 at 19:00 Metoclopramide HCl (Reglan) 5 mg TID IV Last administered on 11/12/16 21:07; Admin Dose 5 MG; Start 11/09/16 at 13:00 Calcium Carbonate (Tums Ex) 750 mg Q6H PRN PO dyspepsia Last administered on 08:12; Admin Dose 750 MG; Start 11/09/16 at 12:30 Insulin Glargine (Lantus) 8 unit DAILY@20 SC Last administered on 11/09/16 20: 55; Admin Dose 8 UNIT; Start 11/09/16 at 20:00; Status Future Hold Morphine Sulfate (morphine) 1 mg Q3H PRN IV pain; Start 11/10/16 at 08:00 Aspirin (Aspirin) 81 mg DAILY GTB ; Start 11/12/16 at 19:00 Clopidogrel Bisulfate (plaVIX) 75 mg DAILY GTB ; Start 11/12/16 at 19:00 BENJAMIN OSEGUERA November 13, 2016 07:20
--- NOTE | 2016-11-13 07:30 | CONS ---
Date/Time of Note Date/Time of Note DATE: 11/13/16 TIME: 07:25 Assessment/Plan Assessment/Plan Chief Complaint/Hosp Course 1. Acute Renal Failure due to ATN . She is now on maintenance hemodialysis . She still has evidence of volume overload . She had hemodialysis yesterday with 500 cc removed.. I will order 2 hours of dry ultrafiltration today. Hemodialysis being done now . Her blood pressure is higher today. 2. ALOC , she continues to be very weak and lethargic , but more awake today. 3. liver enzyme elevation has resolved.. 4. CHF , she continues to have lung congestion and peripheral edema . 5. hypocalcemia/hypoalbuminemia , calcium is higher 6. anemia , She has no active GI bleeding now. 7. peripheral vascular disease . 8. respiratory failure , now on nasal canula . 9 dysphagia , she has a PEG . Problems: Consultation Date/Type/Reason Admit Date/Time Sep 20, 2016 at 19:21 Initial Consult Date 09/23/16 Type of Consultation: Pulmonary ICU Referring Provider: ZANDRA ROBISON MD, [facility] HR Interval Summary Free Text/Dictation She is in the ICU. She is lethargic but arouses to verbal stimuli and is responsive. She did have an EGD and colonoscopy last night. There was no evidence of active GI bleeding. Exam/Review of Systems Vital Signs Vitals Vital Signs Date Time Temp Pulse Resp B/P Pulse Ox O2 Delivery O2 Flow Rate FiO2 11/13/16 06:15 97 11 119/52 100 Nasal Cannula 2.0 11/13/16 05:00 98.0 11/11/16 01:17 Intake and Output 11/12/16 11/12/16 11/13/16 15:00 23:00 07:00 Intake Total 420 ml 130 ml 480 ml Output Total 800 ml Balance -380 ml 130 ml 480 ml Exam Constitutional: alert, frail Respiratory: clear to auscultation Cardiovascular: edema, regular rate and rhythm Gastrointestinal: soft Extremities: edema Results Result Diagram: 11/13/16 0520 11/13/16 0520 Results 24 hrs Laboratory Tests Test 11/12/16 12:34 11/12/16 14:15 11/12/16 18:26 11/13/16 00:20 Bedside Glucose 290 H 190 186 Hemoglobin 9.0 L Hematocrit 29.5 L Potassium Level 3.1 L Test 11/13/16 00:45 11/13/16 05:20 11/13/16 05:33 Hemoglobin 9.2 L 9.0 L Hematocrit 29.5 L 30.7 L Sodium Level 147 H Potassium Level 4.3 Chloride Level 109 Carbon Dioxide Level 20 L Anion Gap 22 H Blood Urea Nitrogen 26 H Creatinine 1.66 H Glucose Level 232 H Calcium Level 8.7 Total Bilirubin 0.2 Direct Bilirubin 0.00 Indirect Bilirubin 0.2 Aspartate Amino Transf (AST/SGOT) 38 Alanine Aminotransferase (ALT/SGPT) 33 Alkaline Phosphatase 116 Total Protein 5.4 L Albumin 2.6 L Globulin 2.80 Albumin/Globulin Ratio 0.92 Bedside Glucose 226 H Medications Medications Current Medications Acetaminophen (Tylenol Liquid) 650 mg Q4H PRN NGT PAIN AND OR ELEVATED TEMP Last administered on 11/09/16 11:10; Admin Dose 650 MG; Start 09/21/16 at 02:00 Pantoprazole (Protonix Iv) 40 mg AM IV Last administered on 11/12/16 08:12; Admin Dose 40 MG; Start 09/26/16 at 09:00 Epoetin Raj (Epogen (Esrd)) 10,000 units TuThSa@17 SC Last administered on 11/12 18:22; Admin Dose 10,000 UNITS; Start 09/26/16 at 17:00 IV Flush (NS 10 ml) 10 ml PRN PRN IV IV PROTOCOL; Start 09/26/16 at 17:30 Dextrose (D50w Syringe) 25 ml Q15M PRN IV DECREASED GLUCOSE Last administered on 11/01/16 21:38; Admin Dose 25 ML; Start 10/09/16 at 20:30 Calcium Carbonate (Tums) 500 mg TID NGT Last administered on 11/12/16 21:09; Admin Dose 500 MG; Start 10/15/16 at 21:00 Metoprolol Tartrate (Lopressor) 25 mg BID PO Last administered on 11/11/16 21: 38; Admin Dose 25 MG; Start 10/20/16 at 21:00 Lactulose (Enulose) 20 gm BID PRN PO CONSTIPATION Last administered on 12:57; Admin Dose 20 GM; Start 10/23/16 at 10:30 Lactobacillus Acidophilus (Florajen3 Capsule) 1 each TID PO Last administered on 11/12/16 22:05; Admin Dose 1 EACH; Start 10/25/16 at 13:30 Amylase/Lipase/ Protease (CREON (55v-14r-19k)) 3 cap Q6 NGT Last administered on 11/13/16 05:39; Admin Dose 3 CAP; Start 10/29/16 at 13:00 Latanoprost (Xalatan) 1 drop HS BOTH EYES Last administered on 11/12/16 21:09; Admin Dose 1 DROP; Start 10/31/16 at 21:00 Dorzolamide/ Timolol (Cosopt) 1 drop BID BOTH EYES Last administered on 21:09; Admin Dose 1 DROP; Start 10/31/16 at 21:00 Insulin Aspart (Novolog Insulin Pen) NOVOLOG *MODERATE* ALGORI... Q6 SC Last administered on 11/13/16 05:40; Admin Dose 6 UNIT; Start 11/03/16 at 18:00 Miscellaneous Information 1 ea NOTE XX ; Start 11/03/16 at 18:00 Glucagon (Glucagen) 1 mg Q15M PRN IM DECREASED GLUCOSE; Start 11/03/16 at 18:00 Glucose (Glutose) 15 gm Q15M PRN BUCCAL DECREASED GLUCOSE Last administered on 11/12/16 06:49; Admin Dose 15 GM; Start 11/03/16 at 18:00 Ondansetron HCl (Zofran Inj) 4 mg Q4H PRN IV NAUSEA AND/OR VOMITING Last administered on 11/09/16 15:21; Admin Dose 4 MG; Start 11/04/16 at 23:00 Eye Lubricant (Artificial Tears Oph) 2 drop QID BOTH EYES Last administered on 11/12/16 21:09; Admin Dose 2 DROP; Start 11/07/16 at 09:00 Sodium Biphosphate/ Sodium Phosphate (Fleet Enema) 133 ml DAILY PRN [place] CONSTIPATION; Start 11/07/16 at 19:00 Metoclopramide HCl (Reglan) 5 mg TID IV Last administered on 11/12/16 21:07; Admin Dose 5 MG; Start 11/09/16 at 13:00 Calcium Carbonate (Tums Ex) 750 mg Q6H PRN PO dyspepsia Last administered on 08:12; Admin Dose 750 MG; Start 11/09/16 at 12:30 Insulin Glargine (Lantus) 8 unit DAILY@20 SC Last administered on 11/09/16 20: 55; Admin Dose 8 UNIT; Start 11/09/16 at 20:00; Status Future Hold Morphine Sulfate (morphine) 1 mg Q3H PRN IV pain; Start 11/10/16 at 08:00 Aspirin (Aspirin) 81 mg DAILY GTB ; Start 11/12/16 at 19:00 Clopidogrel Bisulfate (plaVIX) 75 mg DAILY GTB ; Start 11/12/16 at 19:00 DAMIR MARTINEZ MD November 13, 2016 07:30
--- NOTE | 2016-11-13 09:04 | CONS ---
Date/Time of Note Date/Time of Note DATE: 11/13/16 TIME: 09:03 Assessment/Plan Assessment/Plan Additional Assessment/Plan Assessment recommendations; patient admitted for GI bleed with stable hematocrit now 2. Chronic renal failure, on hemodialysis. 3. History of hypertension and diabetes. 4. History of recent respiratory failure with severe bilateral pneumonia with marked improvement. Continue current treatment. Patient can be transferred to the medical floor. Consultation Date/Type/Reason Admit Date/Time Sep 20, 2016 at 19:21 Initial Consult Date 09/23/16 Type of Consultation: Pulmonary ICU Referring Provider: ZANDRA ROBISON MD, [facility] 24 HR Interval Summary Free Text/Dictation Patient condition is stable. Remains completely awake alert. Denies any shortness of breath. General exam; elderly woman, awake alert currently in no distress. Exam/Review of Systems Vital Signs Vitals Vital Signs Date Time Temp Pulse Resp B/P Pulse Ox O2 Delivery O2 Flow Rate FiO2 11/13/16 08:48 96 14 99 Nasal Cannula 2.0 11/13/16 06:15 119/52 11/13/16 05:00 98.0 11/11/16 01:17 Intake and Output 11/12/16 11/12/16 11/13/16 15:00 23:00 07:00 Intake Total 420 ml 130 ml 480 ml Output Total 800 ml Balance -380 ml 130 ml 480 ml Exam HEENT examination; supple neck, no JVD. No lymphadenopathy. Midline trachea. No thyromegaly. Patient has fair dentition. Pupils are midsize and reactive to light bilaterally. Chest examination; clear to auscultation. S1-S2 audible, no murmurs. Abdomen examination; no organomegaly. Bowel sounds audible. Nontender. Extremity exam; generalized 1+ anasarca. There are multiple ecchymosis involving all 4 extremities. BULK FOLDER examination; there is no focal motor deficit. Results Result Diagram: 11/13/1651911/13/16519 Results 24 hrs Laboratory Tests Test 11/12/16 12:34 11/12/16 14:15 11/12/16 18:26 11/13/16 00:20 Bedside Glucose 290 H 190 186 Hemoglobin 9.0 L Hematocrit 29.5 L Potassium Level 3.1 L Test 11/13/16 00:45 11/13/16 05:20 11/13/16 05:33 Hemoglobin 9.2 L 9.0 L Hematocrit 29.5 L 30.7 L Sodium Level 147 H Potassium Level 4.3 Chloride Level 109 Carbon Dioxide Level 20 L Anion Gap 22 H Blood Urea Nitrogen 26 H Creatinine 1.66 H Glucose Level 232 H Calcium Level 8.7 Total Bilirubin 0.2 Direct Bilirubin 0.00 Indirect Bilirubin 0.2 Aspartate Amino Transf (AST/SGOT) 38 Alanine Aminotransferase (ALT/SGPT) 33 Alkaline Phosphatase 116 Total Protein 5.4 L Albumin 2.6 L Globulin 2.80 Albumin/Globulin Ratio 0.92 Bedside Glucose 226 H Medications Medications Current Medications Acetaminophen (Tylenol Liquid) 650 mg Q4H PRN NGT PAIN AND OR ELEVATED TEMP Last administered on 11/09/16 11:10; Admin Dose 650 MG; Start 09/21/16 at 02:00 Pantoprazole (Protonix Iv) 40 mg AM IV Last administered on 11/12/16 08:12; Admin Dose 40 MG; Start 09/26/16 at 09:00 Epoetin Raj (Epogen (Esrd)) 10,000 units TuThSa@17 SC Last administered on 11/12 18:22; Admin Dose 10,000 UNITS; Start 09/26/16 at 17:00 IV Flush (NS 10 ml) 10 ml PRN PRN IV IV PROTOCOL; Start 09/26/16 at 17:30 Dextrose (D50w Syringe) 25 ml Q15M PRN IV DECREASED GLUCOSE Last administered on 11/01/16 21:38; Admin Dose 25 ML; Start 10/09/16 at 20:30 Calcium Carbonate (Tums) 500 mg TID NGT Last administered on 11/12/16 21:09; Admin Dose 500 MG; Start 10/15/16 at 21:00 Metoprolol Tartrate (Lopressor) 25 mg BID PO Last administered on 11/11/16 21: 38; Admin Dose 25 MG; Start 10/20/16 at 21:00 Lactulose (Enulose) 20 gm BID PRN PO CONSTIPATION Last administered on 12:57; Admin Dose 20 GM; Start 10/23/16 at 10:30 Lactobacillus Acidophilus (Florajen3 Capsule) 1 each TID PO Last administered on 11/12/16 22:05; Admin Dose 1 EACH; Start 10/25/16 at 13:30 Amylase/Lipase/ Protease (CREON (12g-92k-60k)) 3 cap Q6 NGT Last administered on 11/13/16 05:39; Admin Dose 3 CAP; Start 10/29/16 at 13:00 Latanoprost (Xalatan) 1 drop HS BOTH EYES Last administered on 11/12/16 21:09; Admin Dose 1 DROP; Start 10/31/16 at 21:00 Dorzolamide/ Timolol (Cosopt) 1 drop BID BOTH EYES Last administered on 21:09; Admin Dose 1 DROP; Start 10/31/16 at 21:00 Miscellaneous Information 1 ea NOTE XX ; Start 11/03/16 at 18:00 Glucagon (Glucagen) 1 mg Q15M PRN IM DECREASED GLUCOSE; Start 11/03/16 at 18:00 Glucose (Glutose) 15 gm Q15M PRN BUCCAL DECREASED GLUCOSE Last administered on 11/12/16 06:49; Admin Dose 15 GM; Start 11/03/16 at 18:00 Ondansetron HCl (Zofran Inj) 4 mg Q4H PRN IV NAUSEA AND/OR VOMITING Last administered on 11/09/16 15:21; Admin Dose 4 MG; Start 11/04/16 at 23:00 Eye Lubricant (Artificial Tears Oph) 2 drop QID BOTH EYES Last administered on 11/12/16 21:09; Admin Dose 2 DROP; Start 11/07/16 at 09:00 Sodium Biphosphate/ Sodium Phosphate (Fleet Enema) 133 ml DAILY PRN [place] CONSTIPATION; Start 11/07/16 at 19:00 Metoclopramide HCl (Reglan) 5 mg TID IV Last administered on 11/12/16 21:07; Admin Dose 5 MG; Start 11/09/16 at 13:00 Calcium Carbonate (Tums Ex) 750 mg Q6H PRN PO dyspepsia Last administered on 08:12; Admin Dose 750 MG; Start 11/09/16 at 12:30 Morphine Sulfate (morphine) 1 mg Q3H PRN IV pain; Start 11/10/16 at 08:00 Aspirin (Aspirin) 81 mg DAILY GTB ; Start 11/12/16 at 19:00 Clopidogrel Bisulfate (plaVIX) 75 mg DAILY GTB ; Start 11/12/16 at 19:00 Insulin Aspart (Novolog Insulin Pen) NOVOLOG *MODERATE* ALGORI... Q4H SC ; Start 11/13/16 at 12:00; Status UNV Insulin Glargine (Lantus) 8 unit DAILY@08 SC ; Start 11/14/16 at 08:00; Status ADIS FORD November 13, 2016 09:04
[2016-11-13] MEDS: DORZOLAMIDE/TIMOLOL 10 ML OPH BOTH EYES SCH ×2 (09:07→22:23)
[2016-11-13] MEDS: ARTIFICIAL TEARS 15 ML OPH BOTH EYES SCH ×4 (09:07→22:23)
[2016-11-13] MEDS: ASPIRIN 81 MG TAB GTB SCH (09:07)
[2016-11-13] MEDS: L ACIDOPHIL/B LACTIS/B LONGUM CAPSULE PO SCH ×3 (09:07→22:07)
[2016-11-13] MEDS: METOCLOPRAMIDE 10 MG INJ IV SCH ×3 (09:07→22:07)
[2016-11-13] MEDS: CALCIUM CARBONATE 500 MG CHEW TAB NGT SCH ×3 (09:07→22:08)
[2016-11-13] MEDS: CLOPIDOGREL 75 MG TAB GTB SCH (09:08)
[2016-11-13] MEDS: PANTOPRAZOLE 40 MG INJ IV SCH (09:08)
[2016-11-13] MEDS: METOPROLOL 25 MG TAB PO SCH ×2 (09:08→22:08)
[2016-11-13] MEDS: INSULIN GLARGINE [LANtus] 3 ML PEN SC SCH (09:35)
[2016-11-13] MEDS ORDERED: ALBUMIN HUMAN 25% 100 ML IV ONE (13:30)
--- NOTE | 2016-11-13 14:29 | PN ---
Date/Time of Note Date/Time of Note DATE: 11/13/16 TIME: 14:24 Assessment/Plan VTE Prophylaxis VTE Prophylaxis Intervention: other (asa, plavix) Lines/Catheters IV Catheter Type (from Nrsg): PICC Line Central line still needed: No Urinary Cath still in place: No Reason Cath still needed: terminal illness/intractable pain Assessment/Plan Assessment/Plan 1. cad/ pad/ on anticoag 2. GI bleed/ anemia 3. arf/ still fluid overload 4. no acute gi bleed 5. dm--gluc higher 6. depression-anxiety 7. musc weak/ dysphagia--PEG feed ---per cards ---per pulm ---per renal ---inc lantus unit ---more awake without benzo or lexapro ---inc PEG feed vol ---ok to transfer out of ICU to tele bed near nurse station Subjective 24 Hr Interval Summary Free Text/Dictation more awake, more verbal Exam/Review of Systems Vital Signs Vitals Vital Signs Date Time Temp Pulse Resp B/P Pulse Ox O2 Delivery O2 Flow Rate FiO2 11/13/16 13:00 79 8 85/46 100 Nasal Cannula 3.0 11/13/16 12:00 96.9 11/11/16 01:17 Intake and Output 11/12/16 11/12/16 11/13/16 15:00 23:00 07:00 Intake Total 420 ml 130 ml 520 ml Output Total 800 ml Balance -380 ml 130 ml 520 ml Exam obese, sitting up more in bed speaks her mind more dec bs rr less edema toes blue black+ Results Result Diagram: 11/13/1651911/13/16519 Results 24 hrs Laboratory Tests Test 11/12/16 18:26 11/13/16 00:20 11/13/16 00:45 11/13/16 05:20 Bedside Glucose 190 186 Hemoglobin 9.2 L 9.0 L Hematocrit 29.5 L 30.7 L Sodium Level 147 H Potassium Level 4.3 Chloride Level 109 Carbon Dioxide Level 20 L Anion Gap 22 H Blood Urea Nitrogen 26 H Creatinine 1.66 H Glucose Level 232 H Calcium Level 8.7 Total Bilirubin 0.2 Direct Bilirubin 0.00 Indirect Bilirubin 0.2 Aspartate Amino Transf (AST/SGOT) 38 Alanine Aminotransferase (ALT/SGPT) 33 Alkaline Phosphatase 116 Total Protein 5.4 L Albumin 2.6 L Globulin 2.80 Albumin/Globulin Ratio 0.92 Test 11/13/16 05:33 11/13/16 09:17 11/13/16 13:49 Bedside Glucose 226 H 250 H 206 Medications Medications Current Medications Acetaminophen (Tylenol Liquid) 650 mg Q4H PRN NGT PAIN AND OR ELEVATED TEMP Last administered on 11/09/16 11:10; Admin Dose 650 MG; Start 09/21/16 at 02:00 Pantoprazole (Protonix Iv) 40 mg AM IV Last administered on 11/13/16 09:08; Admin Dose 40 MG; Start 09/26/16 at 09:00 Epoetin Raj (Epogen (Esrd)) 10,000 units TuThSa@17 SC Last administered on 11/12 18:22; Admin Dose 10,000 UNITS; Start 09/26/16 at 17:00 IV Flush (NS 10 ml) 10 ml PRN PRN IV IV PROTOCOL; Start 09/26/16 at 17:30 Dextrose (D50w Syringe) 25 ml Q15M PRN IV DECREASED GLUCOSE Last administered on 11/01/16 21:38; Admin Dose 25 ML; Start 10/09/16 at 20:30 Calcium Carbonate (Tums) 500 mg TID NGT Last administered on 11/13/16 13:55; Admin Dose 500 MG; Start 10/15/16 at 21:00 Metoprolol Tartrate (Lopressor) 25 mg BID PO Last administered on 11/13/16 09: 08; Admin Dose 25 MG; Start 10/20/16 at 21:00 Lactulose (Enulose) 20 gm BID PRN PO CONSTIPATION Last administered on 12:57; Admin Dose 20 GM; Start 10/23/16 at 10:30 Lactobacillus Acidophilus (Florajen3 Capsule) 1 each TID PO Last administered on 11/13/16 13:51; Admin Dose 1 EACH; Start 10/25/16 at 13:30 Amylase/Lipase/ Protease (CREON (12k-38k-60k)) 3 cap Q6 NGT Last administered on 11/13/16 13:56; Admin Dose 3 CAP; Start 10/29/16 at 13:00 Latanoprost (Xalatan) 1 drop HS BOTH EYES Last administered on 11/12/16 21:09; Admin Dose 1 DROP; Start 10/31/16 at 21:00 Dorzolamide/ Timolol (Cosopt) 1 drop BID BOTH EYES Last administered on 09:07; Admin Dose 1 DROP; Start 10/31/16 at 21:00 Miscellaneous Information 1 ea NOTE XX ; Start 11/03/16 at 18:00 Glucagon (Glucagen) 1 mg Q15M PRN IM DECREASED GLUCOSE; Start 11/03/16 at 18:00 Glucose (Glutose) 15 gm Q15M PRN BUCCAL DECREASED GLUCOSE Last administered on 11/12/16 06:49; Admin Dose 15 GM; Start 11/03/16 at 18:00 Ondansetron HCl (Zofran Inj) 4 mg Q4H PRN IV NAUSEA AND/OR VOMITING Last administered on 11/09/16 15:21; Admin Dose 4 MG; Start 11/04/16 at 23:00 Eye Lubricant (Artificial Tears Oph) 2 drop QID BOTH EYES Last administered on 11/13/16 13:51; Admin Dose 2 DROP; Start 11/07/16 at 09:00 Sodium Biphosphate/ Sodium Phosphate (Fleet Enema) 133 ml DAILY PRN [place] CONSTIPATION; Start 11/07/16 at 19:00 Metoclopramide HCl (Reglan) 5 mg TID IV Last administered on 11/13/16 13:51; Admin Dose 5 MG; Start 11/09/16 at 13:00 Calcium Carbonate (Tums Ex) 750 mg Q6H PRN PO dyspepsia Last administered on 08:12; Admin Dose 750 MG; Start 11/09/16 at 12:30 Morphine Sulfate (morphine) 1 mg Q3H PRN IV pain; Start 11/10/16 at 08:00 Aspirin (Aspirin) 81 mg DAILY GTB Last administered on 11/13/16 09:07; Admin Dose 81 MG; Start 11/12/16 at 19:00 Clopidogrel Bisulfate (plaVIX) 75 mg DAILY GTB Last administered on 11/13/16 09:08; Admin Dose 75 MG; Start 11/12/16 at 19:00 Insulin Aspart (Novolog Insulin Pen) NOVOLOG *MODERATE* ALGORI... Q4H SC Last administered on 11/13/16 13:53; Admin Dose 4 UNIT; Start 11/13/16 at 09:00 Insulin Glargine 8 unit 8 unit DAILY@08 SC Last administered on 11/13/16 09:35 ; Admin Dose 8 UNIT; Start 11/13/16 at 09:30 Albumin Human (Albumin Human 25%) 100 ml @ 100 mls/hr ONCE ONCE IV Last administered on 11/13/16 13:36; Admin Dose 100 MLS/HR; Start 11/13/16 at 13:30 ; Stop 11/13/16 at 14:29 SHAMA LOPEZ MD November 13, 2016 14:29
[2016-11-13] MEDS ORDERED: INSULIN GLARGINE [LANtus] 3 ML PEN SC SCH (20:00)
--- NOTE | 2016-11-13 20:06 | PN ---
DATE: SUBJECTIVE: Rectal bleeding. This bleeding is under control. She is alert. She is out of the int ensive care unit. OBJECTIVE: VITAL SIGNS: Blood pressure is 102/42, temperature 98.0, respirations 15, pulse is 83. ABDOMEN: Unremarkable. She does have a G-tube in place. LABORATORY WORKUP: Hemoglobin is in the range of 9.0 to 9.2. The coagulation, prothrombin time is 21.5. IMPRESSION: 1. She is not actively bleeding at this time. 2. She has a gastric ulcer. 3. She has hemorrhoids. 4. Suboptimal colonic prep. PLAN: At this time, continue current therapy. If she bleeds again, the anticoagulation therapy has to be stopped. She has to be given fresh frozen plasma. Dictated By: CIELO COWAN/JERROD Conf#: [id number] DID#: [id number] CC: TOVA WRIGHT MD;*EndCC*
[2016-11-13] MEDS: LATANOPROST 0.005% 2.5 ML OPH BOTH EYES SCH (22:23)
[2016-11-14] VITALS (18 sets, daily range): BP systolic 92–134; BP diastolic 50–68; PULSE 80–88; RESP 18–20
[2016-11-14] MEDS: CREON (12k-38k-60k) 1 CAP NGT SCH ×4 (00:59→16:57)
[2016-11-14] MEDS: INSULIN ASPART [NOVOLOG] 3 ML PEN SC SCH ×6 (01:20→21:35)
[2016-11-14] MEDS: LEVALBUTEROL (NEB) 1.25 MG/0.5 ML AMP HHN SCH ×4 (01:33→19:44)
[2016-11-14] MEDS: IPRATROPIUM (NEB) 0.5 MG/2.5 ML AMP HHN SCH ×4 (01:33→19:44)
[2016-11-14] MEDS: METOPROLOL 25 MG TAB PO SCH ×2 (09:00→21:00)
[2016-11-14] MEDS: ARTIFICIAL TEARS 15 ML OPH BOTH EYES SCH ×4 (09:07→21:19)
[2016-11-14] MEDS: DORZOLAMIDE/TIMOLOL 10 ML OPH BOTH EYES SCH ×2 (09:07→21:19)
[2016-11-14] MEDS: CLOPIDOGREL 75 MG TAB GTB SCH (09:14)
[2016-11-14] MEDS: ASPIRIN 81 MG TAB GTB SCH (09:14)
[2016-11-14] MEDS: L ACIDOPHIL/B LACTIS/B LONGUM CAPSULE PO SCH ×3 (09:14→21:20)
[2016-11-14] MEDS: CALCIUM CARBONATE 500 MG CHEW TAB NGT SCH ×3 (09:23→21:20)
[2016-11-14] MEDS: PANTOPRAZOLE 40 MG INJ IV SCH (09:23)
[2016-11-14] MEDS: METOCLOPRAMIDE 10 MG INJ IV SCH ×3 (09:23→21:19)
[2016-11-14] MEDS: INSULIN GLARGINE [LANtus] 3 ML PEN SC SCH (09:34)
--- NOTE | 2016-11-14 09:48 | CONS ---
Date/Time of Note Date/Time of Note DATE: 11/14/16 TIME: 09:45 Assessment/Plan Assessment/Plan Chief Complaint/Hosp Course 1. Acute Renal Failure due to ATN . She is now on maintenance hemodialysis . She still has evidence of volume overload . She had dry ultrafiltration yesterday with 3 liters removed.. I will order 2 hours of dry ultrafiltration today. Hemodialysis ordered for tomorrow . Her blood pressure is higher today. 2. ALOC , she continues to be very weak and lethargic , but more awake today. 3. liver enzyme elevation has resolved.. 4. CHF , she continues to have lung congestion and peripheral edema . 5. hypocalcemia/hypoalbuminemia , calcium is higher 6. anemia , She has no active GI bleeding now. 7. peripheral vascular disease . 8. respiratory failure , now on nasal canula . 9 dysphagia , she has a PEG . Problems: Consultation Date/Type/Reason Admit Date/Time Sep 20, 2016 at 19:21 Initial Consult Date 09/23/16 Type of Consultation: renal Referring Provider: ZADNRA ROBISON MD, [facility] HR Interval Summary Free Text/Dictation She is now on the telemetry floor . She is more awake and responsive . Constitutional: improved, no complaints Exam/Review of Systems Vital Signs Vitals Vital Signs Date Time Temp Pulse Resp B/P Pulse Ox O2 Delivery O2 Flow Rate FiO2 11/14/16 08:04 82 11/14/16 07:43 16 98 Nasal Cannula 2.0 11/14/16 07:37 98.1 113/55 11/11/16 01:17 Intake and Output 11/13/16 11/13/16 11/14/16 15:00 23:00 07:00 Intake Total 1030 ml 690 ml Output Total 3500 ml Balance -2470 ml 690 ml Exam Constitutional: alert, oriented Respiratory: clear to auscultation, diminished breath sounds Cardiovascular: edema, regular rate and rhythm Gastrointestinal: soft Extremities: edema Results Result Diagram: 11/13/16 0520 11/13/16 0520 Results 24 hrs Laboratory Tests Test 11/13/16 13:49 11/13/16 18:21 11/13/16 22:04 11/14/16 00:58 Bedside Glucose 206 243 H 252 H 291 H Test 11/14/16 04:46 11/14/16 09:02 Bedside Glucose 291 H 245 H Medications Medications Current Medications Acetaminophen (Tylenol Liquid) 650 mg Q4H PRN NGT PAIN AND OR ELEVATED TEMP Last administered on 11/09/16 11:10; Admin Dose 650 MG; Start 09/21/16 at 02:00 Pantoprazole (Protonix Iv) 40 mg AM IV Last administered on 11/14/16 09:23; Admin Dose 40 MG; Start 09/26/16 at 09:00 Epoetin Raj (Epogen (Esrd)) 10,000 units TuThSa@17 SC Last administered on 11/12 18:22; Admin Dose 10,000 UNITS; Start 09/26/16 at 17:00 IV Flush (NS 10 ml) 10 ml PRN PRN IV IV PROTOCOL; Start 09/26/16 at 17:30 Dextrose (D50w Syringe) 25 ml Q15M PRN IV DECREASED GLUCOSE Last administered on 11/01/16 21:38; Admin Dose 25 ML; Start 10/09/16 at 20:30 Calcium Carbonate (Tums) 500 mg TID NGT Last administered on 11/14/16 09:23; Admin Dose 500 MG; Start 10/15/16 at 21:00 Metoprolol Tartrate (Lopressor) 25 mg BID PO Last administered on 11/13/16 22: 08; Admin Dose 25 MG; Start 10/20/16 at 21:00 Lactulose (Enulose) 20 gm BID PRN PO CONSTIPATION Last administered on 12:57; Admin Dose 20 GM; Start 10/23/16 at 10:30 Lactobacillus Acidophilus (Florajen3 Capsule) 1 each TID PO Last administered on 11/14/16 09:14; Admin Dose 1 EACH; Start 10/25/16 at 13:30 Amylase/Lipase/ Protease (CREON (12k-38k-60k)) 3 cap Q6 NGT Last administered on 11/14/16 06:14; Admin Dose 3 CAP; Start 10/29/16 at 13:00 Latanoprost (Xalatan) 1 drop HS BOTH EYES Last administered on 11/13/16 22:23 ; Admin Dose 1 DROP; Start 10/31/16 at 21:00 Dorzolamide/ Timolol (Cosopt) 1 drop BID BOTH EYES Last administered on 09:07; Admin Dose 1 DROP; Start 10/31/16 at 21:00 Miscellaneous Information 1 ea NOTE XX ; Start 11/03/16 at 18:00 Glucagon (Glucagen) 1 mg Q15M PRN IM DECREASED GLUCOSE; Start 11/03/16 at 18:00 Glucose (Glutose) 15 gm Q15M PRN BUCCAL DECREASED GLUCOSE Last administered on 11/12/16 06:49; Admin Dose 15 GM; Start 11/03/16 at 18:00 Ondansetron HCl (Zofran Inj) 4 mg Q4H PRN IV NAUSEA AND/OR VOMITING Last administered on 11/09/16 15:21; Admin Dose 4 MG; Start 11/04/16 at 23:00 Eye Lubricant (Artificial Tears Oph) 2 drop QID BOTH EYES Last administered on 11/14/16 09:07; Admin Dose 2 DROP; Start 11/07/16 at 09:00 Sodium Biphosphate/ Sodium Phosphate (Fleet Enema) 133 ml DAILY PRN [place] CONSTIPATION; Start 11/07/16 at 19:00 Metoclopramide HCl (Reglan) 5 mg TID IV Last administered on 11/14/16 09:23; Admin Dose 5 MG; Start 11/09/16 at 13:00 Calcium Carbonate (Tums Ex) 750 mg Q6H PRN PO dyspepsia Last administered on 08:12; Admin Dose 750 MG; Start 11/09/16 at 12:30 Morphine Sulfate (morphine) 1 mg Q3H PRN IV pain; Start 11/10/16 at 08:00 Aspirin (Aspirin) 81 mg DAILY GTB Last administered on 11/14/16 09:14; Admin Dose 81 MG; Start 11/12/16 at 19:00 Clopidogrel Bisulfate (plaVIX) 75 mg DAILY GTB Last administered on 11/14/16 09:14; Admin Dose 75 MG; Start 11/12/16 at 19:00 Insulin Aspart (Novolog Insulin Pen) NOVOLOG *MODERATE* ALGORI... Q4H SC Last administered on 11/14/16 09:33; Admin Dose 6 UNIT; Start 11/13/16 at 09:00 Insulin Glargine (Lantus) 8 unit DAILY@08 SC Last administered on 5/11/17at 09: 34; Admin Dose 8 UNIT; Start 11/13/16 at 09:30 DAMIR MARTINEZ MD November 14, 2016 09:48
[2016-11-14] MEDS ORDERED: GLUCAGON 1 MG INJ IM PRN (10:00)
[2016-11-14] MEDS ORDERED: GLUCOSE GEL 15 GRAM TUBE BUCCAL PRN (10:00)
[2016-11-14] MEDS ORDERED: GLUCOSE GEL 15 GRAM TUBE PO PRN ×2 (10:00)
[2016-11-14 10:28] LABS: ADD SCAN DIFF NO
[2016-11-14 10:34] LABS: BASOPHILS % 0.4 % (0.0-2.0); EOSINOPHILS # 0.2 10^3/ul (0.0-0.5); EOSINOPHILS % 2.8 % (0.0-7.0); HEMATOCRIT 29.9 % (37.0-47.0); LYMPHOCYTES # 1.6 10^3/ul (0.8-2.9); LYMPHOCYTES % 18.7 % (15.0-51.0); MEAN CORPUSCULAR HEMOGLOBIN 29.9 pg (29.0-33.0); MEAN CORPUSCULAR HGB CONC 30.1 g/dl (32.0-37.0); MEAN CORPUSCULAR VOLUME 99.3 fl (82.0-101.0); MEAN PLATELET VOLUME 10.9 fl (7.4-10.4); MONOCYTES % 11.8 % (0.0-11.0); NEUTROPHIL # 5.4 10^3/ul (1.6-7.5); NEUTROPHILS % 65.1 % (39.0-77.0); NUCLEATED RED BLOOD CELLS% 0.5 /100WBC (0.0-0.0); PLATELET COUNT 127 10^3/UL (140-415); RED BLOOD COUNT 3.01 10^6/ul (4.20-5.40); RED CELL DISTRIBUTION WIDTH 21.9 % (11.5-14.5); WHITE BLOOD COUNT 8.3 10^3/ul (4.8-10.8)
[2016-11-14 10:45] LABS: ALBUMIN 2.9 g/dl (3.3-4.9)
[2016-11-14 10:46] LABS: POTASSIUM 3.8 mmol/L (3.5-5.1)
[2016-11-14 10:47] LABS: INR 2.2; PROTIME 24.7 Sec (12.2-14.2); PT RATIO 1.9
[2016-11-14 10:48] LABS: ALBUMIN/GLOBULIN RATIO 0.93; BILIRUBIN,INDIRECT 0.2 mg/dl (0-1.1); BILIRUBIN,TOTAL 0.2 mg/dl (0.2-1.3); CREATININE 1.87 mg/dl (0.44-1.00)
[2016-11-14] MEDS ORDERED: HEPARIN 1000 UNITS/ML 10 ML INJ CATHETER SCH (11:00)
--- NOTE | 2016-11-14 12:23 | CONS ---
Date/Time of Note Date/Time of Note DATE: 11/14/16 TIME: 12:22 Consult Date/Type/Reason Admit Date/Time Sep 20, 2016 at 19:21 Initial Consult Date 09/23/16 Type of Consultation: Pulmonary Ordering Provider: ZANDRA ROBISON MD, [facility] Subjective Patient comfortable this morning new events More alert Currently receiving hemodialysis Objective Vital Signs Date Time Temp Pulse Resp B/P Pulse Ox O2 Delivery O2 Flow Rate FiO2 11/14/16 12:00 81 11/14/16 11:28 98.0 20 133/62 98 11/14/16 07:43 Nasal Cannula 2.0 11/11/16 01:17 Intake and Output 11/13/16 11/13/16 11/14/16 15:00 23:00 07:00 Intake Total 1030 ml 690 ml Output Total 3500 ml Balance -2470 ml 690 ml Exam GENERAL: VITAL SIGNS: per chart NECK: Supple. No JVD or lymphadenopathy. CARDIAC EXAM: S1, S2. No added sounds or murmurs. CHEST: clear bilaterally, No added sounds, rales or wheezes ABDOMEN: Soft, nontender. No guarding or rebound. EXTREMITIES: No cyanosis, clubbing or edema. NEUROLOGIC: Generalized weakness. No focal deficits. Elderly lady comfortable at rest no acute distress Results/Medications Result Diagram: 11/14/16 1000 11/14/16 1000 Results 24 hrs Laboratory Tests Test 11/13/16 13:49 11/13/16 18:21 11/13/16 22:04 11/14/16 00:58 Bedside Glucose 206 243 H 252 H 291 H Test 11/14/16 04:46 11/14/16 09:02 11/14/16 10:00 Bedside Glucose 291 H 245 H White Blood Count 8.3 # Red Blood Count 3.01 L Hemoglobin 9.0 L Hematocrit 29.9 L Mean Corpuscular Volume 99.3 Mean Corpuscular Hemoglobin 29.9 Mean Corpuscular Hemoglobin Concent 30.1 L Red Cell Distribution Width 21.9 H Platelet Count 127 #L Mean Platelet Volume 10.9 H Neutrophils % 65.1 Lymphocytes % 18.7 Monocytes % 11.8 H Eosinophils % 2.8 Basophils % 0.4 Nucleated Red Blood Cells % 0.5 H Neutrophils # 5.4 Lymphocytes # 1.6 Monocytes # 1.0 H Eosinophils # 0.2 Basophils # 0.0 Nucleated Red Blood Cells # 0.0 Prothrombin Time 24.7 H Prothrombin Time Ratio 1.9 INR International Normalized Ratio 2.20 Sodium Level 144 Potassium Level 3.8 Chloride Level 105 Carbon Dioxide Level 27 Anion Gap 16 Blood Urea Nitrogen 29 H Creatinine 1.87 H Glucose Level 262 H Calcium Level 9.0 Total Bilirubin 0.2 Direct Bilirubin 0.00 Indirect Bilirubin 0.2 Aspartate Amino Transf (AST/SGOT) 29 Alanine Aminotransferase (ALT/SGPT) 32 Alkaline Phosphatase 135 H Total Protein 6.0 L Albumin 2.9 L Globulin 3.10 Albumin/Globulin Ratio 0.93 Medications Current Medications Acetaminophen (Tylenol Liquid) 650 mg Q4H PRN NGT PAIN AND OR ELEVATED TEMP Last administered on 11/09/16 11:10; Admin Dose 650 MG; Start 09/21/16 at 02:00 Pantoprazole (Protonix Iv) 40 mg AM IV Last administered on 11/14/16 09:23; Admin Dose 40 MG; Start 09/26/16 at 09:00 Epoetin Raj (Epogen (Esrd)) 10,000 units TuThSa@17 SC Last administered on 11/12 18:22; Admin Dose 10,000 UNITS; Start 09/26/16 at 17:00 IV Flush (NS 10 ml) 10 ml PRN PRN IV IV PROTOCOL; Start 09/26/16 at 17:30 Calcium Carbonate (Tums) 500 mg TID NGT Last administered on 11/14/16 09:23; Admin Dose 500 MG; Start 10/15/16 at 21:00 Metoprolol Tartrate (Lopressor) 25 mg BID PO Last administered on 11/13/16 22: 08; Admin Dose 25 MG; Start 10/20/16 at 21:00 Lactulose (Enulose) 20 gm BID PRN PO CONSTIPATION Last administered on 12:57; Admin Dose 20 GM; Start 10/23/16 at 10:30 Lactobacillus Acidophilus (Florajen3 Capsule) 1 each TID PO Last administered on 11/14/16 09:14; Admin Dose 1 EACH; Start 10/25/16 at 13:30 Amylase/Lipase/ Protease (CREON (12y-82k-60k)) 3 cap Q6 NGT Last administered on 11/14/16 06:14; Admin Dose 3 CAP; Start 10/29/16 at 13:00 Latanoprost (Xalatan) 1 drop HS BOTH EYES Last administered on 11/13/16 22:23 ; Admin Dose 1 DROP; Start 10/31/16 at 21:00 Dorzolamide/ Timolol (Cosopt) 1 drop BID BOTH EYES Last administered on 09:07; Admin Dose 1 DROP; Start 10/31/16 at 21:00 Miscellaneous Information 1 ea NOTE XX ; Start 11/03/16 at 18:00 Glucagon (Glucagen) 1 mg Q15M PRN IM DECREASED GLUCOSE; Start 11/03/16 at 18:00 Ondansetron HCl (Zofran Inj) 4 mg Q4H PRN IV NAUSEA AND/OR VOMITING Last administered on 11/09/16 15:21; Admin Dose 4 MG; Start 11/04/16 at 23:00 Eye Lubricant (Artificial Tears Oph) 2 drop QID BOTH EYES Last administered on 11/14/16 09:07; Admin Dose 2 DROP; Start 11/07/16 at 09:00 Sodium Biphosphate/ Sodium Phosphate (Fleet Enema) 133 ml DAILY PRN [place] CONSTIPATION; Start 11/07/16 at 19:00 Metoclopramide HCl (Reglan) 5 mg TID IV Last administered on 11/14/16 09:23; Admin Dose 5 MG; Start 11/09/16 at 13:00 Calcium Carbonate (Tums Ex) 750 mg Q6H PRN PO dyspepsia Last administered on 08:12; Admin Dose 750 MG; Start 11/09/16 at 12:30 Morphine Sulfate (morphine) 1 mg Q3H PRN IV pain; Start 11/10/16 at 08:00 Aspirin (Aspirin) 81 mg DAILY GTB Last administered on 11/14/16 09:14; Admin Dose 81 MG; Start 11/12/16 at 19:00 Clopidogrel Bisulfate (plaVIX) 75 mg DAILY GTB Last administered on 11/14/16 09:14; Admin Dose 75 MG; Start 11/12/16 at 19:00 Insulin Aspart (Novolog Insulin Pen) NOVOLOG *MODERATE* ALGORI... Q4H SC Last administered on 5/11/17at 09:33; Admin Dose 6 UNIT; Start 11/13/16 at 09:00 Insulin Glargine (Lantus) 15 unit DAILY@08 SC ; Start 11/15/16 at 08:00 Miscellaneous Information 1 ea NOTE XX ; Start 11/14/16 at 10:00 Glucose (Glutose) 15 gm Q15M PRN PO DECREASED GLUCOSE; Start 11/14/16 at 10:00 Glucose (Glutose) 22.5 gm Q15M PRN PO DECREASED GLUCOSE; Start 11/14/16 at 10: 00 Dextrose (D50w Syringe) 25 ml Q15M PRN IV DECREASED GLUCOSE; Start 11/14/16 at 10:00 Dextrose (D50w Syringe) 50 ml Q15M PRN IV DECREASED GLUCOSE; Start 11/14/16 at 10:00 Glucose (Glutose) 15 gm Q15M PRN BUCCAL DECREASED GLUCOSE; Start 11/14/16 at 10 :00 Heparin Sodium (Porcine) (Heparin (1000 Units/ml)) 4,000 unit ONCE CATHETER ; Start 11/14/16 at 11:00; Stop 11/14/16 at 18:00 Assessment/Plan Chief Complaint/Hosp Course IMPRESSION AND PLAN: 1. Acute on chronic hypoxemic and hypercapnic respiratory failure, likely secondary to a combination of volume overload, right pleural effusion and alveolar hypoventilation from significant neuromuscular weakness status post thoracentesis. 2. History of cardiopulmonary arrest with encephalopathy. 3. Dysphagia with G-tube. 4. Renal failure on hemodialysis. The patient will require: 1. Continue nasal cannula, repeat ABG, may require repeat thoracentesis 2. Continue hemodialysis as tolerated. 3. Continue tube feeding 4. DVT and GI prophylaxis Disposition Repeat chest x-ray in a.m. Consider transfer to [facility] Problems: ZANDRA ROBISON MD, [facility] November 14, 2016 12:23
[2016-11-14] MEDS ORDERED: INSULIN GLARGINE [LANtus] 3 ML PEN SC ONE (12:30)
--- NOTE | 2016-11-14 15:30 | PN ---
Date/Time of Note Date/Time of Note DATE: 11/14/16 TIME: 15:22 Assessment/Plan VTE Prophylaxis VTE Prophylaxis Intervention: other (asa only due to gi bleed+) Lines/Catheters IV Catheter Type (from Nrsg): PICC Line Central line still needed: No Urinary Cath still in place: No Reason Cath still needed: terminal illness/intractable pain Assessment/Plan Assessment/Plan 1. cad/ htn/ pad--needing anticoag 2. gastritis/ hemorrhoid--s/p acute bleed w/ anticoag, now no more--s/p ugi endo & colonocopy 3. arf/ edema--dialysis to better fluid overload 4. rld w/ effusion--pulm considering another thoracentesis 5. musc weak/ dysphagia 6. dm--gluc going up again as feeding inc 7. anxiety due to depression ---per cards ---per pulm ---thank you, gi ---per renal ---only on baby asa to prevent further gi bleed, as pt inr ok for stent ---cont all supportive cares Subjective 24 Hr Interval Summary Free Text/Dictation still tired, body feels heavy Exam/Review of Systems Vital Signs Vitals Vital Signs Date Time Temp Pulse Resp B/P Pulse Ox O2 Delivery O2 Flow Rate FiO2 11/14/16 14:38 2.0 11/14/16 14:38 91 16 97 Nasal Cannula 11/14/16 11:28 98.0 133/62 11/11/16 01:17 Intake and Output 11/13/16 11/13/16 11/14/16 15:00 23:00 07:00 Intake Total 1030 ml 690 ml Output Total 3500 ml Balance -2470 ml 690 ml Exam more readily awake, wants to speak more obese+ lying in bed dec bs rr less but still has global edema+ few toes blue black+ Results Result Diagram: 11/14/16 1000 11/14/16 1000 Results 24 hrs Laboratory Tests Test 11/13/16 18:21 11/13/16 22:04 11/14/16 00:58 11/14/16 04:46 Bedside Glucose 243 H 252 H 291 H 291 H Test 11/14/16 09:02 11/14/16 10:00 11/14/16 12:39 Bedside Glucose 245 H 236 H White Blood Count 8.3 # Red Blood Count 3.01 L Hemoglobin 9.0 L Hematocrit 29.9 L Mean Corpuscular Volume 99.3 Mean Corpuscular Hemoglobin 29.9 Mean Corpuscular Hemoglobin Concent 30.1 L Red Cell Distribution Width 21.9 H Platelet Count 127 #L Mean Platelet Volume 10.9 H Neutrophils % 65.1 Lymphocytes % 18.7 Monocytes % 11.8 H Eosinophils % 2.8 Basophils % 0.4 Nucleated Red Blood Cells % 0.5 H Neutrophils # 5.4 Lymphocytes # 1.6 Monocytes # 1.0 H Eosinophils # 0.2 Basophils # 0.0 Nucleated Red Blood Cells # 0.0 Prothrombin Time 24.7 H Prothrombin Time Ratio 1.9 INR International Normalized Ratio 2.20 Sodium Level 144 Potassium Level 3.8 Chloride Level 105 Carbon Dioxide Level 27 Anion Gap 16 Blood Urea Nitrogen 29 H Creatinine 1.87 H Glucose Level 262 H Calcium Level 9.0 Total Bilirubin 0.2 Direct Bilirubin 0.00 Indirect Bilirubin 0.2 Aspartate Amino Transf (AST/SGOT) 29 Alanine Aminotransferase (ALT/SGPT) 32 Alkaline Phosphatase 135 H Total Protein 6.0 L Albumin 2.9 L Globulin 3.10 Albumin/Globulin Ratio 0.93 Medications Medications Current Medications Acetaminophen (Tylenol Liquid) 650 mg Q4H PRN NGT PAIN AND OR ELEVATED TEMP Last administered on 11/09/16 11:10; Admin Dose 650 MG; Start 09/21/16 at 02:00 Pantoprazole (Protonix Iv) 40 mg AM IV Last administered on 11/14/16 09:23; Admin Dose 40 MG; Start 09/26/16 at 09:00 Epoetin Raj (Epogen (Esrd)) 10,000 units TuThSa@17 SC Last administered on 11/12 18:22; Admin Dose 10,000 UNITS; Start 09/26/16 at 17:00 IV Flush (NS 10 ml) 10 ml PRN PRN IV IV PROTOCOL; Start 09/26/16 at 17:30 Calcium Carbonate (Tums) 500 mg TID NGT Last administered on 11/14/16 12:41; Admin Dose 500 MG; Start 10/15/16 at 21:00 Metoprolol Tartrate (Lopressor) 25 mg BID PO Last administered on 11/13/16 22: 08; Admin Dose 25 MG; Start 10/20/16 at 21:00 Lactulose (Enulose) 20 gm BID PRN PO CONSTIPATION Last administered on 12:57; Admin Dose 20 GM; Start 10/23/16 at 10:30 Lactobacillus Acidophilus (Florajen3 Capsule) 1 each TID PO Last administered on 11/14/16 12:40; Admin Dose 1 EACH; Start 10/25/16 at 13:30 Amylase/Lipase/ Protease (CREON (95n-06k-34z)) 3 cap Q6 NGT Last administered on 11/14/16 12:41; Admin Dose 3 CAP; Start 10/29/16 at 13:00 Latanoprost (Xalatan) 1 drop HS BOTH EYES Last administered on 11/13/16 22:23 ; Admin Dose 1 DROP; Start 10/31/16 at 21:00 Dorzolamide/ Timolol (Cosopt) 1 drop BID BOTH EYES Last administered on 09:07; Admin Dose 1 DROP; Start 10/31/16 at 21:00 Miscellaneous Information 1 ea NOTE XX ; Start 11/03/16 at 18:00 Glucagon (Glucagen) 1 mg Q15M PRN IM DECREASED GLUCOSE; Start 11/03/16 at 18:00 Ondansetron HCl (Zofran Inj) 4 mg Q4H PRN IV NAUSEA AND/OR VOMITING Last administered on 11/09/16 15:21; Admin Dose 4 MG; Start 11/04/16 at 23:00 Eye Lubricant (Artificial Tears Oph) 2 drop QID BOTH EYES Last administered on 11/14/16 12:41; Admin Dose 2 DROP; Start 11/07/16 at 09:00 Sodium Biphosphate/ Sodium Phosphate (Fleet Enema) 133 ml DAILY PRN [place] CONSTIPATION; Start 11/07/16 at 19:00 Metoclopramide HCl (Reglan) 5 mg TID IV Last administered on 11/14/16 12:41; Admin Dose 5 MG; Start 11/09/16 at 13:00 Calcium Carbonate (Tums Ex) 750 mg Q6H PRN PO dyspepsia Last administered on 08:12; Admin Dose 750 MG; Start 11/09/16 at 12:30 Morphine Sulfate (morphine) 1 mg Q3H PRN IV pain; Start 11/10/16 at 08:00 Aspirin (Aspirin) 81 mg DAILY GTB Last administered on 11/14/16 09:14; Admin Dose 81 MG; Start 11/12/16 at 19:00 Insulin Aspart (Novolog Insulin Pen) NOVOLOG *MODERATE* ALGORI... Q4H SC Last administered on 11/14/16 12:55; Admin Dose 6 UNIT; Start 11/13/16 at 09:00 Insulin Glargine (Lantus) 15 unit DAILY@08 SC ; Start 11/15/16 at 08:00 Miscellaneous Information 1 ea NOTE XX ; Start 11/14/16 at 10:00 Glucose (Glutose) 15 gm Q15M PRN PO DECREASED GLUCOSE; Start 11/14/16 at 10:00 Glucose (Glutose) 22.5 gm Q15M PRN PO DECREASED GLUCOSE; Start 11/14/16 at 10: 00 Dextrose (D50w Syringe) 25 ml Q15M PRN IV DECREASED GLUCOSE; Start 11/14/16 at 10:00 Dextrose (D50w Syringe) 50 ml Q15M PRN IV DECREASED GLUCOSE; Start 11/14/16 at 10:00 Glucose (Glutose) 15 gm Q15M PRN BUCCAL DECREASED GLUCOSE; Start 11/14/16 at 10 :00 Heparin Sodium (Porcine) (Heparin (1000 Units/ml)) 4,000 unit ONCE CATHETER ; Start 11/14/16 at 11:00; Stop 11/14/16 at 18:00 SHAMA LOPEZ MD November 14, 2016 15:30
[2016-11-14] MEDS: EPOETIN 10000 UNITS/1 ML INJ (ESRD) SC SCH (16:59)
[2016-11-14] MEDS: LATANOPROST 0.005% 2.5 ML OPH BOTH EYES SCH (21:19)
[2016-11-15] VITALS (16 sets, daily range): BP systolic 91–120; BP diastolic 44–61; PULSE 80–86; RESP 17–20
[2016-11-15] MEDS: CREON (12k-38k-60k) 1 CAP NGT SCH ×4 (00:19→17:34)
[2016-11-15] MEDS: INSULIN ASPART [NOVOLOG] 3 ML PEN SC SCH ×7 (01:00→21:17)
[2016-11-15] MEDS: IPRATROPIUM (NEB) 0.5 MG/2.5 ML AMP HHN SCH ×4 (01:09→19:43)
[2016-11-15] MEDS: LEVALBUTEROL (NEB) 1.25 MG/0.5 ML AMP HHN SCH ×4 (01:09→19:43)
[2016-11-15 08:45] LABS: INR 2.25; PROTIME 25.1 Sec (12.2-14.2)
[2016-11-15] MEDS: ARTIFICIAL TEARS 15 ML OPH BOTH EYES SCH ×4 (08:54→21:17)
[2016-11-15] MEDS: DORZOLAMIDE/TIMOLOL 10 ML OPH BOTH EYES SCH ×2 (08:54→21:17)
[2016-11-15] MEDS: INSULIN GLARGINE [LANtus] 3 ML PEN SC SCH (08:59)
[2016-11-15 09:00] LABS: ADD SCAN DIFF NO
[2016-11-15] MEDS: METOPROLOL 25 MG TAB PO SCH ×2 (09:00→21:18)
[2016-11-15 09:06] LABS: BASOPHILS % 0.4 % (0.0-2.0); EOSINOPHILS # 0.5 10^3/ul (0.0-0.5); EOSINOPHILS % 5.1 % (0.0-7.0); HEMATOCRIT 30.9 % (37.0-47.0); HEMOGLOBIN 9.1 g/dl (12.0-16.0); LYMPHOCYTES # 2.1 10^3/ul (0.8-2.9); LYMPHOCYTES % 20.3 % (15.0-51.0); MEAN CORPUSCULAR HEMOGLOBIN 29.3 pg (29.0-33.0); MEAN CORPUSCULAR HGB CONC 29.4 g/dl (32.0-37.0); MEAN CORPUSCULAR VOLUME 99.4 fl (82.0-101.0); MEAN PLATELET VOLUME 11.6 fl (7.4-10.4); MONOCYTE # 1.1 10^3/ul (0.3-0.9); MONOCYTES % 10.4 % (0.0-11.0); NEUTROPHIL # 6.4 10^3/ul (1.6-7.5); NEUTROPHILS % 63.2 % (39.0-77.0); NUCLEATED RED BLOOD CELLS% 0.2 /100WBC (0.0-0.0); PLATELET COUNT 113 10^3/UL (140-415); RED BLOOD COUNT 3.11 10^6/ul (4.20-5.40); RED CELL DISTRIBUTION WIDTH 21.5 % (11.5-14.5); WHITE BLOOD COUNT 10.2 10^3/ul (4.8-10.8)
[2016-11-15 09:10] LABS: ALBUMIN 2.7 g/dl (3.3-4.9); ALBUMIN/GLOBULIN RATIO 0.9; BILIRUBIN,INDIRECT 0.3 mg/dl (0-1.1); BILIRUBIN,TOTAL 0.3 mg/dl (0.2-1.3); CALCIUM 8.9 mg/dl (8.4-10.2); CREATININE 2.15 mg/dl (0.44-1.00); POTASSIUM 4.6 mmol/L (3.5-5.1); TOTAL PROTEIN 5.7 g/dl (6.1-8.1)
--- NOTE | 2016-11-15 09:13 | RADRPT ---
PROCEDURE: XR Chest. CLINICAL INDICATION: Respiratory failure TECHNIQUE: An AP view of the chest was obtained. COMPARISON: Chest x-ray dated 11/11/2016 FINDINGS: There is a left upper extremity PICC line with tip near the cavoatrial junction. There is a right c hest Perm-A-Cath with tip in the upper right atrium. There is prominence of the interstitial markings with small bilateral pleural effusions. No pneumo thorax is seen. The cardiomediastinal silhouette is mildly enlarged . Calcifications are seen withi n the aortic arch. The osseous structures demonstrate senescent changes. IMPRESSION: 1. No pneumothorax is identified on the current examination. 2. Findings suggestive of interstitial edema with small bilateral pleural effusions. Lung aeration is mildly improved when compared to the prior examination. 3. Mild cardiomegaly and aortic atherosclerosis. 4. Tubes and lines, as described above. RPTAT: HH .Ana Salter MD, MD Date Time Electronically viewed and signed by .Ana Salter MD, on 11/15/2016 09:13 .G/
[2016-11-15] MEDS: CALCIUM CARBONATE 500 MG CHEW TAB NGT SCH ×3 (09:42→21:17)
[2016-11-15] MEDS: ASPIRIN 81 MG TAB GTB SCH (09:42)
[2016-11-15] MEDS: METOCLOPRAMIDE 10 MG INJ IV SCH ×3 (09:43→21:17)
[2016-11-15] MEDS: PANTOPRAZOLE 40 MG INJ IV SCH (09:43)
[2016-11-15] MEDS: L ACIDOPHIL/B LACTIS/B LONGUM CAPSULE PO SCH ×3 (09:47→21:19)
--- NOTE | 2016-11-15 13:11 | CONS ---
Date/Time of Note Date/Time of Note DATE: 11/15/16 TIME: 13:00 Assessment/Plan Assessment/Plan Chief Complaint/Hosp Course 1. Acute Renal Failure due to ATN . She is now on maintenance hemodialysis . She still has evidence of volume overload . She had hemodialysis today and 4.5 liters of fluid were removed .Next hemodialysis in 2 days . 2. ALOC , she continues to be very weak and lethargic , but more awake now . 3. liver enzyme elevation has resolved.. 4. CHF , she continues to have lung congestion and peripheral edema ; however she is having fluid removed with dialysis . 5. hypocalcemia/hypoalbuminemia , calcium is higher 6. anemia , She has no active GI bleeding now. 7. peripheral vascular disease . 8. respiratory failure , pulmonary function has improved . 9 dysphagia , she has a PEG , will have speech re- evaluate . . Problems: Consultation Date/Type/Reason Admit Date/Time Sep 20, 2016 at 19:21 Initial Consult Date 09/23/16 Type of Consultation: renal Referring Provider: [facility] ROBISON [facility], [facility] HR Interval Summary Free Text/Dictation She is awake and responsive . She had hemodialysis today and had 4.5 liters of fluid removed . Constitutional: improved, no complaints Exam/Review of Systems Vital Signs Vitals Vital Signs Date Time Temp Pulse Resp B/P Pulse Ox O2 Delivery O2 Flow Rate FiO2 11/15/16 12:13 85 11/15/16 11:31 97.5 17 103/49 100 11/15/16 08:25 Nasal Cannula 2.0 Intake and Output 11/14/16 11/14/16 11/15/16 15:00 23:00 07:00 Intake Total 300 ml 1280 ml 800 ml Output Total 2800 ml Balance -2500 ml 1280 ml 800 ml Exam Constitutional: alert, oriented Respiratory: clear to auscultation, diminished breath sounds Cardiovascular: edema, regular rate and rhythm Gastrointestinal: soft Extremities: edema Results Result Diagram: 11/15/16 0634 11/15/16 0500 Results 24 hrs Laboratory Tests Test 11/14/16 16:53 11/14/16 21:30 11/15/16 01:23 11/15/16 05:00 Bedside Glucose 227 H 184 171 Sodium Level 137 Potassium Level 4.6 Chloride Level 105 Carbon Dioxide Level 26 Anion Gap 11 Blood Urea Nitrogen 39 H Creatinine 2.15 H Glucose Level 204 Calcium Level 8.9 Total Bilirubin 0.3 Direct Bilirubin 0.00 Indirect Bilirubin 0.3 Aspartate Amino Transf (AST/SGOT) 33 Alanine Aminotransferase (ALT/SGPT) 36 Alkaline Phosphatase 152 H Total Protein 5.7 L Albumin 2.7 L Globulin 3.00 Albumin/Globulin Ratio 0.90 Test 11/15/16 05:42 11/15/16 06:34 11/15/16 08:51 11/15/16 12:27 Bedside Glucose 185 253 H 275 H White Blood Count 10.2 # Red Blood Count 3.11 L Hemoglobin 9.1 L Hematocrit 30.9 L Mean Corpuscular Volume 99.4 Mean Corpuscular Hemoglobin 29.3 Mean Corpuscular Hemoglobin Concent 29.4 L Red Cell Distribution Width 21.5 H Platelet Count 113 L Mean Platelet Volume 11.6 H Neutrophils % 63.2 Lymphocytes % 20.3 Monocytes % 10.4 Eosinophils % 5.1 Basophils % 0.4 Nucleated Red Blood Cells % 0.2 H Neutrophils # 6.4 Lymphocytes # 2.1 Monocytes # 1.1 H Eosinophils # 0.5 Basophils # 0.0 Nucleated Red Blood Cells # 0.0 Prothrombin Time 25.1 H Prothrombin Time Ratio 2.0 INR International Normalized Ratio 2.25 Magnesium Level 2.3 Medications Medications Current Medications Acetaminophen (Tylenol Liquid) 650 mg Q4H PRN NGT PAIN AND OR ELEVATED TEMP Last administered on 11/09/16 11:10; Admin Dose 650 MG; Start 09/21/16 at 02:00 Pantoprazole (Protonix Iv) 40 mg AM IV Last administered on 11/15/16 09:43; Admin Dose 40 MG; Start 09/26/16 at 09:00 Epoetin Raj (Epogen (Esrd)) 10,000 units TuThSa@17 SC Last administered on 16:59; Admin Dose 10,000 UNITS; Start 09/26/16 at 17:00 IV Flush (NS 10 ml) 10 ml PRN PRN IV IV PROTOCOL; Start 09/26/16 at 17:30 Calcium Carbonate (Tums) 500 mg TID NGT Last administered on 11/15/16 12:31; Admin Dose 500 MG; Start 10/15/16 at 21:00 Metoprolol Tartrate (Lopressor) 25 mg BID PO Last administered on 11/13/16 22: 08; Admin Dose 25 MG; Start 10/20/16 at 21:00 Lactulose (Enulose) 20 gm BID PRN PO CONSTIPATION Last administered on 12:57; Admin Dose 20 GM; Start 10/23/16 at 10:30 Lactobacillus Acidophilus (Florajen3 Capsule) 1 each TID PO Last administered on 11/15/16 12:30; Admin Dose 1 EACH; Start 10/25/16 at 13:30 Amylase/Lipase/ Protease (CREON (70f-14h-39x)) 3 cap Q6 NGT Last administered on 11/15/16 12:30; Admin Dose 3 CAP; Start 10/29/16 at 13:00 Latanoprost (Xalatan) 1 drop HS BOTH EYES Last administered on 11/14/16 21:19 ; Admin Dose 1 DROP; Start 10/31/16 at 21:00 Dorzolamide/ Timolol (Cosopt) 1 drop BID BOTH EYES Last administered on 08:54; Admin Dose 1 DROP; Start 10/31/16 at 21:00 Miscellaneous Information 1 ea NOTE XX ; Start 11/03/16 at 18:00 Glucagon (Glucagen) 1 mg Q15M PRN IM DECREASED GLUCOSE; Start 11/03/16 at 18:00 Ondansetron HCl (Zofran Inj) 4 mg Q4H PRN IV NAUSEA AND/OR VOMITING Last administered on 11/09/16 15:21; Admin Dose 4 MG; Start 11/04/16 at 23:00 Eye Lubricant (Artificial Tears Oph) 2 drop QID BOTH EYES Last administered on 11/15/16 12:30; Admin Dose 2 DROP; Start 11/07/16 at 09:00 Sodium Biphosphate/ Sodium Phosphate (Fleet Enema) 133 ml DAILY PRN [place] CONSTIPATION; Start 11/07/16 at 19:00 Metoclopramide HCl (Reglan) 5 mg TID IV Last administered on 11/15/16 12:30; Admin Dose 5 MG; Start 11/09/16 at 13:00 Calcium Carbonate (Tums Ex) 750 mg Q6H PRN PO dyspepsia Last administered on 08:12; Admin Dose 750 MG; Start 11/09/16 at 12:30 Morphine Sulfate (morphine) 1 mg Q3H PRN IV pain; Start 11/10/16 at 08:00 Aspirin (Aspirin) 81 mg DAILY GTB Last administered on 11/15/16 09:42; Admin Dose 81 MG; Start 11/12/16 at 19:00 Insulin Aspart (Novolog Insulin Pen) NOVOLOG *MODERATE* ALGORI... Q4H SC Last administered on 11/15/16 12:46; Admin Dose 8 UNIT; Start 11/13/16 at 09:00 Insulin Glargine (Lantus) 15 unit DAILY@08 SC Last administered on 11/15/16 08 :59; Admin Dose 15 UNIT; Start 11/15/16 at 08:00 Miscellaneous Information 1 ea NOTE XX ; Start 11/14/16 at 10:00 Glucose (Glutose) 15 gm Q15M PRN PO DECREASED GLUCOSE; Start 11/14/16 at 10:00 Glucose (Glutose) 22.5 gm Q15M PRN PO DECREASED GLUCOSE; Start 11/14/16 at 10: 00 Dextrose (D50w Syringe) 25 ml Q15M PRN IV DECREASED GLUCOSE; Start 11/14/16 at 10:00 Dextrose (D50w Syringe) 50 ml Q15M PRN IV DECREASED GLUCOSE; Start 11/14/16 at 10:00 Glucose (Glutose) 15 gm Q15M PRN BUCCAL DECREASED GLUCOSE; Start 11/14/16 at 10 :00 DAMIR MARTINEZ MD November 15, 2016 13:10
--- NOTE | 2016-11-15 14:13 | PN ---
DATE: The patient was seen by me because of rectal bleeding. Upper endoscopy showed evidence of large gas tric ulcer at the site of the gastrostomy. Active bleeding was not noted. Colonoscopy showed subop timal preparation. Minimal hemorrhoids were noted. No active bleeding noted. Stool was dark. Upon review of the laboratory tests, the INR is 1.85, prothrombin time 21.5. The platelet count is 101,000 as of 11/11/2016. Currently she is on: 1. Aspirin. 2. Plavix. CLINICAL IMPRESSION: The patient has had active gastrointestinal bleed, luckily is under control no w. The real source of the bleeding is not known. However, I discussed this with Dr. Castillo at this ti wi. The patient is on aspirin and Plavix because of the coronary stent, and INR is ____, so we disc ussed that we may have to discontinue Plavix, but Dr. Castillo is going to talk to the wildlife officer and s ee if Plavix can be stopped and take 1 day at a time. Dictated By: CIELO COWAN/JERROD Conf#: [id number] DID#: [id number] CC: SHAMA CASTILLO MD;*EndCC*
--- NOTE | 2016-11-15 14:37 | CONS ---
Date/Time of Note Date/Time of Note DATE: 11/15/16 TIME: 14:35 Consult Date/Type/Reason Admit Date/Time Sep 20, 2016 at 19:21 Initial Consult Date 09/23/16 Type of Consultation: Pulmonary Ordering Provider: ZANDRA ROBISON MD, [facility] Subjective Patient is comfortable no new events Objective Vital Signs Date Time Temp Pulse Resp B/P Pulse Ox O2 Delivery O2 Flow Rate FiO2 11/15/16 12:13 85 11/15/16 11:31 97.5 17 103/49 100 11/15/16 08:25 Nasal Cannula 2.0 Intake and Output 11/14/16 11/14/16 11/15/16 15:00 23:00 07:00 Intake Total 300 ml 1280 ml 800 ml Output Total 2800 ml Balance -2500 ml 1280 ml 800 ml Exam GENERAL: VITAL SIGNS: per chart NECK: Supple. No JVD or lymphadenopathy. CARDIAC EXAM: S1, S2. No added sounds or murmurs. CHEST: clear bilaterally, No added sounds, rales or wheezes ABDOMEN: Soft, nontender. No guarding or rebound. EXTREMITIES: No cyanosis, clubbing or edema. NEUROLOGIC: Generalized weakness. No focal deficits. Elderly lady comfortable at rest no acute distress Results/Medications Result Diagram: 11/15/16 0634 11/15/16 0500 Results 24 hrs Laboratory Tests Test 11/14/16 16:53 11/14/16 21:30 11/15/16 01:23 11/15/16 05:00 Bedside Glucose 227 H 184 171 Sodium Level 137 Potassium Level 4.6 Chloride Level 105 Carbon Dioxide Level 26 Anion Gap 11 Blood Urea Nitrogen 39 H Creatinine 2.15 H Glucose Level 204 Calcium Level 8.9 Total Bilirubin 0.3 Direct Bilirubin 0.00 Indirect Bilirubin 0.3 Aspartate Amino Transf (AST/SGOT) 33 Alanine Aminotransferase (ALT/SGPT) 36 Alkaline Phosphatase 152 H Total Protein 5.7 L Albumin 2.7 L Globulin 3.00 Albumin/Globulin Ratio 0.90 Test 11/15/16 05:42 11/15/16 06:34 11/15/16 08:51 11/15/16 12:27 Bedside Glucose 185 253 H 275 H White Blood Count 10.2 # Red Blood Count 3.11 L Hemoglobin 9.1 L Hematocrit 30.9 L Mean Corpuscular Volume 99.4 Mean Corpuscular Hemoglobin 29.3 Mean Corpuscular Hemoglobin Concent 29.4 L Red Cell Distribution Width 21.5 H Platelet Count 113 L Mean Platelet Volume 11.6 H Neutrophils % 63.2 Lymphocytes % 20.3 Monocytes % 10.4 Eosinophils % 5.1 Basophils % 0.4 Nucleated Red Blood Cells % 0.2 H Neutrophils # 6.4 Lymphocytes # 2.1 Monocytes # 1.1 H Eosinophils # 0.5 Basophils # 0.0 Nucleated Red Blood Cells # 0.0 Prothrombin Time 25.1 H Prothrombin Time Ratio 2.0 INR International Normalized Ratio 2.25 Magnesium Level 2.3 Medications Current Medications Acetaminophen (Tylenol Liquid) 650 mg Q4H PRN NGT PAIN AND OR ELEVATED TEMP Last administered on 11/09/16 11:10; Admin Dose 650 MG; Start 09/21/16 at 02:00 Pantoprazole (Protonix Iv) 40 mg AM IV Last administered on 11/15/16 09:43; Admin Dose 40 MG; Start 09/26/16 at 09:00 Epoetin Raj (Epogen (Esrd)) 10,000 units TuThSa@17 SC Last administered on 16:59; Admin Dose 10,000 UNITS; Start 09/26/16 at 17:00 IV Flush (NS 10 ml) 10 ml PRN PRN IV IV PROTOCOL; Start 09/26/16 at 17:30 Calcium Carbonate (Tums) 500 mg TID NGT Last administered on 11/15/16 12:31; Admin Dose 500 MG; Start 10/15/16 at 21:00 Metoprolol Tartrate (Lopressor) 25 mg BID PO Last administered on 11/13/16 22: 08; Admin Dose 25 MG; Start 10/20/16 at 21:00 Lactulose (Enulose) 20 gm BID PRN PO CONSTIPATION Last administered on 12:57; Admin Dose 20 GM; Start 10/23/16 at 10:30 Lactobacillus Acidophilus (Florajen3 Capsule) 1 each TID PO Last administered on 11/15/16 12:30; Admin Dose 1 EACH; Start 10/25/16 at 13:30 Amylase/Lipase/ Protease (CREON (45o-70k-30k)) 3 cap Q6 NGT Last administered on 11/15/16 12:30; Admin Dose 3 CAP; Start 10/29/16 at 13:00 Latanoprost (Xalatan) 1 drop HS BOTH EYES Last administered on 11/14/16 21:19 ; Admin Dose 1 DROP; Start 10/31/16 at 21:00 Dorzolamide/ Timolol (Cosopt) 1 drop BID BOTH EYES Last administered on 08:54; Admin Dose 1 DROP; Start 10/31/16 at 21:00 Miscellaneous Information 1 ea NOTE XX ; Start 11/03/16 at 18:00 Glucagon (Glucagen) 1 mg Q15M PRN IM DECREASED GLUCOSE; Start 11/03/16 at 18:00 Ondansetron HCl (Zofran Inj) 4 mg Q4H PRN IV NAUSEA AND/OR VOMITING Last administered on 11/09/16 15:21; Admin Dose 4 MG; Start 11/04/16 at 23:00 Eye Lubricant (Artificial Tears Oph) 2 drop QID BOTH EYES Last administered on 11/15/16 12:30; Admin Dose 2 DROP; Start 11/07/16 at 09:00 Sodium Biphosphate/ Sodium Phosphate (Fleet Enema) 133 ml DAILY PRN [place] CONSTIPATION; Start 11/07/16 at 19:00 Metoclopramide HCl (Reglan) 5 mg TID IV Last administered on 11/15/16 12:30; Admin Dose 5 MG; Start 11/09/16 at 13:00 Calcium Carbonate (Tums Ex) 750 mg Q6H PRN PO dyspepsia Last administered on 08:12; Admin Dose 750 MG; Start 11/09/16 at 12:30 Morphine Sulfate (morphine) 1 mg Q3H PRN IV pain; Start 11/10/16 at 08:00 Aspirin (Aspirin) 81 mg DAILY GTB Last administered on 11/15/16 09:42; Admin Dose 81 MG; Start 11/12/16 at 19:00 Insulin Aspart (Novolog Insulin Pen) NOVOLOG *MODERATE* ALGORI... Q4H SC Last administered on 11/15/16 12:46; Admin Dose 8 UNIT; Start 11/13/16 at 09:00 Insulin Glargine (Lantus) 15 unit DAILY@08 SC Last administered on 5/12/17at 08 :59; Admin Dose 15 UNIT; Start 11/15/16 at 08:00 Miscellaneous Information 1 ea NOTE XX ; Start 11/14/16 at 10:00 Glucose (Glutose) 15 gm Q15M PRN PO DECREASED GLUCOSE; Start 11/14/16 at 10:00 Glucose (Glutose) 22.5 gm Q15M PRN PO DECREASED GLUCOSE; Start 11/14/16 at 10: 00 Dextrose (D50w Syringe) 25 ml Q15M PRN IV DECREASED GLUCOSE; Start 11/14/16 at 10:00 Dextrose (D50w Syringe) 50 ml Q15M PRN IV DECREASED GLUCOSE; Start 11/14/16 at 10:00 Glucose (Glutose) 15 gm Q15M PRN BUCCAL DECREASED GLUCOSE; Start 11/14/16 at 10 :00 Assessment/Plan Chief Complaint/Hosp Course IMPRESSION AND PLAN: 1. Acute on chronic hypoxemic and hypercapnic respiratory failure, likely secondary to a combination of volume overload, right pleural effusion and alveolar hypoventilation from significant neuromuscular weakness status post thoracentesis. 2. History of cardiopulmonary arrest with encephalopathy. 3. Dysphagia with G-tube. 4. Renal failure on hemodialysis. The patient will require: 1. Continue nasal cannula oxygen 2. Continue hemodialysis as tolerated. Would suggest more volume to be removed with tolerated 3. Continue tube feeding 4. DVT and GI prophylaxis Disposition Continue current care consider transfer to [facility] Problems: Z[facility]DRA ROBISON MD, [facility] November 15, 2016 14:37
[2016-11-15] MEDS: LATANOPROST 0.005% 2.5 ML OPH BOTH EYES SCH (21:17)
[2016-11-16] VITALS (13 sets, daily range): BP systolic 100–125; BP diastolic 54–58; PULSE 74–80; RESP 16–20
[2016-11-16] MEDS: IPRATROPIUM (NEB) 0.5 MG/2.5 ML AMP HHN SCH ×4 (01:00→19:36)
[2016-11-16] MEDS: LEVALBUTEROL (NEB) 1.25 MG/0.5 ML AMP HHN SCH ×4 (01:01→19:36)
[2016-11-16] MEDS: CREON (12k-38k-60k) 1 CAP NGT SCH ×4 (01:08→18:46)
[2016-11-16] MEDS: INSULIN ASPART [NOVOLOG] 3 ML PEN SC SCH ×6 (01:49→20:26)
[2016-11-16] MEDS: ARTIFICIAL TEARS 15 ML OPH BOTH EYES SCH ×4 (08:38→20:25)
[2016-11-16] MEDS: DORZOLAMIDE/TIMOLOL 10 ML OPH BOTH EYES SCH ×2 (08:38→20:25)
[2016-11-16] MEDS: INSULIN GLARGINE [LANtus] 3 ML PEN SC SCH (08:40)
[2016-11-16] MEDS: METOCLOPRAMIDE 10 MG INJ IV SCH ×3 (08:40→20:25)
[2016-11-16] MEDS: L ACIDOPHIL/B LACTIS/B LONGUM CAPSULE PO SCH ×3 (08:41→20:25)
[2016-11-16] MEDS: CALCIUM CARBONATE 500 MG CHEW TAB NGT SCH ×3 (08:41→20:25)
[2016-11-16] MEDS: PANTOPRAZOLE 40 MG INJ IV SCH (08:41)
[2016-11-16] MEDS: METOPROLOL 25 MG TAB PO SCH ×2 (08:41→20:26)
[2016-11-16] MEDS: ASPIRIN 81 MG TAB GTB SCH (08:41)
[2016-11-16] MEDS ORDERED: INSULIN GLARGINE [LANtus] 3 ML PEN SC ONE (12:30)
[2016-11-16] MEDS: ESCITALOPRAM 10 MG TAB GTB SCH (12:32)
--- NOTE | 2016-11-16 13:53 | CONS ---
Date/Time of Note Date/Time of Note DATE: 11/16/16 TIME: 13:48 Assessment/Plan Assessment/Plan Chief Complaint/Hosp Course 1. Acute Renal Failure due to ATN , hemodialysis dependent. She still has evidence of volume overload. Dialysis is planned for tomorrow 2. ALOC, lethargic but responsive 3. liver enzyme elevation has resolved.. 4. CHF improved 5. hypocalcemia/hypoalbuminemia , calcium is improved 6. anemia , She has no active GI bleeding now. 7. peripheral vascular disease . 9 dysphagia, has PEG Problems: Consultation Date/Type/Reason Admit Date/Time Sep 20, 2016 at 19:21 Initial Consult Date 10/22/16 Type of Consultation: Nephrology Referring Provider: ZANDRA ROBISON MD, [facility] 24 HR Interval Summary Free Text/Dictation Alert, denies discomfort. Exam/Review of Systems Vital Signs Vitals Vital Signs Date Time Temp Pulse Resp B/P Pulse Ox O2 Delivery O2 Flow Rate FiO2 11/16/16 12:10 74 11/16/16 11:22 97.6 18 100/54 100 11/16/16 08:59 2.0 11/16/16 08:00 Nasal Cannula Intake and Output 11/15/16 11/15/16 11/16/16 14:59 22:59 06:59 Intake Total 300 ml Output Total 4300 ml Balance -4000 ml Exam Constitutional: alert Psych: no complaints Head: normocephalic Neck: supple, No jvd Respiratory: clear to auscultation Cardiovascular: regular rate and rhythm Gastrointestinal: non-tender, soft Extremities: edema Results Result Diagram: 11/15/16 0634 11/15/16 0500 Results 24 hrs Laboratory Tests Test 11/15/16 17:30 11/15/16 20:58 11/16/16 01:03 11/16/16 05:57 Bedside Glucose 223 H 183 220 278 H Test 11/16/16 07:27 11/16/16 08:37 11/16/16 12:29 Bedside Glucose 285 H 260 H 170 Medications Medications Current Medications Acetaminophen (Tylenol Liquid) 650 mg Q4H PRN NGT PAIN AND OR ELEVATED TEMP Last administered on 11/09/16t 11:10; Admin Dose 650 MG; Start 09/21/16 at 02:00 Pantoprazole (Protonix Iv) 40 mg AM IV Last administered on 11/16/16 08:41; Admin Dose 40 MG; Start 09/26/16 at 09:00 Epoetin Raj (Epogen (Esrd)) 10,000 units TuThSa@17 SC Last administered on 16:59; Admin Dose 10,000 UNITS; Start 09/26/16 at 17:00 IV Flush (NS 10 ml) 10 ml PRN PRN IV IV PROTOCOL; Start 09/26/16 at 17:30 Calcium Carbonate (Tums) 500 mg TID NGT Last administered on 11/16/16 12:32; Admin Dose 500 MG; Start 10/15/16 at 21:00 Metoprolol Tartrate (Lopressor) 25 mg BID PO Last administered on 11/16/16 08: 41; Admin Dose 25 MG; Start 10/20/16 at 21:00 Lactulose (Enulose) 20 gm BID PRN PO CONSTIPATION Last administered on 12:57; Admin Dose 20 GM; Start 10/23/16 at 10:30 Lactobacillus Acidophilus (Florajen3 Capsule) 1 each TID PO Last administered on 11/16/16 12:32; Admin Dose 1 EACH; Start 10/25/16 at 13:30 Amylase/Lipase/ Protease (CREON (23o-29b-87t)) 3 cap Q6 NGT Last administered on 11/16/16 12:32; Admin Dose 3 CAP; Start 10/29/16 at 13:00 Latanoprost (Xalatan) 1 drop HS BOTH EYES Last administered on 11/15/16 21:17 ; Admin Dose 1 DROP; Start 10/31/16 at 21:00 Dorzolamide/ Timolol (Cosopt) 1 drop BID BOTH EYES Last administered on 08:38; Admin Dose 1 DROP; Start 10/31/16 at 21:00 Miscellaneous Information 1 ea NOTE XX ; Start 11/03/16 at 18:00 Glucagon (Glucagen) 1 mg Q15M PRN IM DECREASED GLUCOSE; Start 11/03/16 at 18:00 Ondansetron HCl (Zofran Inj) 4 mg Q4H PRN IV NAUSEA AND/OR VOMITING Last administered on 11/09/16 15:21; Admin Dose 4 MG; Start 11/04/16 at 23:00 Eye Lubricant (Artificial Tears Oph) 2 drop QID BOTH EYES Last administered on 11/16/16 12:32; Admin Dose 2 DROP; Start 11/07/16 at 09:00 Sodium Biphosphate/ Sodium Phosphate (Fleet Enema) 133 ml DAILY PRN [place] CONSTIPATION; Start 11/07/16 at 19:00 Metoclopramide HCl (Reglan) 5 mg TID IV Last administered on 11/16/16 12:32; Admin Dose 5 MG; Start 11/09/16 at 13:00 Calcium Carbonate (Tums Ex) 750 mg Q6H PRN PO dyspepsia Last administered on 08:12; Admin Dose 750 MG; Start 11/09/16 at 12:30 Morphine Sulfate (morphine) 1 mg Q3H PRN IV pain; Start 11/10/16 at 08:00 Aspirin (Aspirin) 81 mg DAILY GTB Last administered on 11/16/16 08:41; Admin Dose 81 MG; Start 11/12/16 at 19:00 Insulin Aspart (Novolog Insulin Pen) NOVOLOG *MODERATE* ALGORI... Q4H SC Last administered on 11/16/16 12:34; Admin Dose 2 UNIT; Start 11/13/16 at 09:00 Miscellaneous Information 1 ea NOTE XX ; Start 11/14/16 at 10:00 Glucose (Glutose) 15 gm Q15M PRN PO DECREASED GLUCOSE; Start 11/14/16 at 10:00 Glucose (Glutose) 22.5 gm Q15M PRN PO DECREASED GLUCOSE; Start 11/14/16 at 10: 00 Dextrose (D50w Syringe) 25 ml Q15M PRN IV DECREASED GLUCOSE; Start 11/14/16 at 10:00 Dextrose (D50w Syringe) 50 ml Q15M PRN IV DECREASED GLUCOSE; Start 11/14/16 at 10:00 Glucose (Glutose) 15 gm Q15M PRN BUCCAL DECREASED GLUCOSE; Start 11/14/16 at 10 :00 Insulin Glargine (Lantus) 22 unit DAILY@08 SC ; Start 11/17/16 at 08:00 Escitalopram Oxalate (Lexapro) 10 mg DAILY GTB Last administered on 11/16/16 12:32; Admin Dose 10 MG; Start 11/16/16 at 12:30 SHAW LY MD November 16, 2016 13:53
--- NOTE | 2016-11-16 14:11 | CONS ---
Date/Time of Note Date/Time of Note DATE: 11/16/16 TIME: 14:09 Assessment/Plan Assessment/Plan Chief Complaint/Hosp Course gastric ulcer stable gi bleeding Problems: Consultation Date/Type/Reason Admit Date/Time Sep 20, 2016 at 19:21 Initial Consult Date 10/22/16 Type of Consultation: Nephrology Referring Provider: ZANDRA ROBISON MD, [facility] 24 HR Interval Summary Free Text/Dictation talks very little abd soft hb at 9 pt 25 off of plavix Exam/Review of Systems Vital Signs Vitals Vital Signs Date Time Temp Pulse Resp B/P Pulse Ox O2 Delivery O2 Flow Rate FiO2 11/16/16 12:10 74 11/16/16 11:22 97.6 18 100/54 100 11/16/16 08:59 2.0 11/16/16 08:00 Nasal Cannula Intake and Output 11/15/16 11/15/16 11/16/16 15:00 23:00 07:00 Intake Total 300 ml Output Total 4300 ml Balance -4000 ml Results Result Diagram: 11/15/16 0634 11/15/16 0500 Results 24 hrs Laboratory Tests Test 11/15/16 17:30 11/15/16 20:58 11/16/16 01:03 11/16/16 05:57 Bedside Glucose 223 H 183 220 278 H Test 11/16/16 07:27 11/16/16 08:37 11/16/16 12:29 Bedside Glucose 285 H 260 H 170 Medications Medications Current Medications Acetaminophen (Tylenol Liquid) 650 mg Q4H PRN NGT PAIN AND OR ELEVATED TEMP Last administered on 11/09/16 11:10; Admin Dose 650 MG; Start 09/21/16 at 02:00 Pantoprazole (Protonix Iv) 40 mg AM IV Last administered on 11/16/16 08:41; Admin Dose 40 MG; Start 09/26/16 at 09:00 Epoetin Raj (Epogen (Esrd)) 10,000 units TuThSa@17 SC Last administered on 16:59; Admin Dose 10,000 UNITS; Start 09/26/16 at 17:00 IV Flush (NS 10 ml) 10 ml PRN PRN IV IV PROTOCOL; Start 09/26/16 at 17:30 Calcium Carbonate (Tums) 500 mg TID NGT Last administered on 11/16/16 12:32; Admin Dose 500 MG; Start 10/15/16 at 21:00 Metoprolol Tartrate (Lopressor) 25 mg BID PO Last administered on 11/16/16 08: 41; Admin Dose 25 MG; Start 10/20/16 at 21:00 Lactulose (Enulose) 20 gm BID PRN PO CONSTIPATION Last administered on 12:57; Admin Dose 20 GM; Start 10/23/16 at 10:30 Lactobacillus Acidophilus (Florajen3 Capsule) 1 each TID PO Last administered on 11/16/16 12:32; Admin Dose 1 EACH; Start 10/25/16 at 13:30 Amylase/Lipase/ Protease (CREON (48w-04d-38b)) 3 cap Q6 NGT Last administered on 11/16/16 12:32; Admin Dose 3 CAP; Start 10/29/16 at 13:00 Latanoprost (Xalatan) 1 drop HS BOTH EYES Last administered on 11/15/16 21:17 ; Admin Dose 1 DROP; Start 10/31/16 at 21:00 Dorzolamide/ Timolol (Cosopt) 1 drop BID BOTH EYES Last administered on 08:38; Admin Dose 1 DROP; Start 10/31/16 at 21:00 Miscellaneous Information 1 ea NOTE XX ; Start 11/03/16 at 18:00 Glucagon (Glucagen) 1 mg Q15M PRN IM DECREASED GLUCOSE; Start 11/03/16 at 18:00 Ondansetron HCl (Zofran Inj) 4 mg Q4H PRN IV NAUSEA AND/OR VOMITING Last administered on 11/09/16 15:21; Admin Dose 4 MG; Start 11/04/16 at 23:00 Eye Lubricant (Artificial Tears Oph) 2 drop QID BOTH EYES Last administered on 11/16/16 12:32; Admin Dose 2 DROP; Start 11/07/16 at 09:00 Sodium Biphosphate/ Sodium Phosphate (Fleet Enema) 133 ml DAILY PRN [place] CONSTIPATION; Start 11/07/16 at 19:00 Metoclopramide HCl (Reglan) 5 mg TID IV Last administered on 11/16/16 12:32; Admin Dose 5 MG; Start 11/09/16 at 13:00 Calcium Carbonate (Tums Ex) 750 mg Q6H PRN PO dyspepsia Last administered on 08:12; Admin Dose 750 MG; Start 11/09/16 at 12:30 Morphine Sulfate (morphine) 1 mg Q3H PRN IV pain; Start 11/10/16 at 08:00 Aspirin (Aspirin) 81 mg DAILY GTB Last administered on 11/16/16 08:41; Admin Dose 81 MG; Start 11/12/16 at 19:00 Insulin Aspart (Novolog Insulin Pen) NOVOLOG *MODERATE* ALGORI... Q4H SC Last administered on 11/16/16 12:34; Admin Dose 2 UNIT; Start 11/13/16 at 09:00 Miscellaneous Information 1 ea NOTE XX ; Start 11/14/16 at 10:00 Glucose (Glutose) 15 gm Q15M PRN PO DECREASED GLUCOSE; Start 11/14/16 at 10:00 Glucose (Glutose) 22.5 gm Q15M PRN PO DECREASED GLUCOSE; Start 11/14/16 at 10: 00 Dextrose (D50w Syringe) 25 ml Q15M PRN IV DECREASED GLUCOSE; Start 11/14/16 at 10:00 Dextrose (D50w Syringe) 50 ml Q15M PRN IV DECREASED GLUCOSE; Start 11/14/16 at 10:00 Glucose (Glutose) 15 gm Q15M PRN BUCCAL DECREASED GLUCOSE; Start 11/14/16 at 10 :00 Insulin Glargine (Lantus) 22 unit DAILY@08 SC ; Start 11/17/16 at 08:00 Escitalopram Oxalate (Lexapro) 10 mg DAILY GTB Last administered on 11/16/16 12:32; Admin Dose 10 MG; Start 11/16/16 at 12:30 CIELO SANCHEZ MD November 16, 2016 14:11
--- NOTE | 2016-11-16 15:51 | CONS ---
Date/Time of Note Date/Time of Note DATE: 11/16/16 TIME: 15:49 Consult Date/Type/Reason Admit Date/Time Sep 20, 2016 at 19:21 Initial Consult Date 09/23/16 Type of Consultation: Pulm Ordering Provider: Z[facility]DRA ROBISON MD, [facility] Subjective No events. Now in tele. Objective Vital Signs Date Time Temp Pulse Resp B/P Pulse Ox O2 Delivery O2 Flow Rate FiO2 11/16/16 15:21 98.0 79 18 125/55 99 11/16/16 14:22 2.0 11/16/16 08:00 Nasal Cannula Intake and Output 11/15/16 11/15/16 11/16/16 15:00 23:00 07:00 Intake Total 300 ml Output Total 4300 ml Balance -4000 ml Exam NECK: Supple. No JVD or lymphadenopathy. CARDIAC EXAM: S1, S2. No added sounds or murmurs. CHEST: clear bilaterally, No added sounds, rales or wheezes ABDOMEN: Soft, nontender. No guarding or rebound. EXTREMITIES: No cyanosis, clubbing or edema. Results/Medications Result Diagram: 11/15/16 0634 11/15/16 0500 Results 24 hrs Laboratory Tests Test 11/15/16 17:30 11/15/16 20:58 11/16/16 01:03 11/16/16 05:57 Bedside Glucose 223 H 183 220 278 H Test 11/16/16 07:27 11/16/16 08:37 11/16/16 12:29 Bedside Glucose 285 H 260 H 170 Medications Current Medications Acetaminophen (Tylenol Liquid) 650 mg Q4H PRN NGT PAIN AND OR ELEVATED TEMP Last administered on 11/09/16 11:10; Admin Dose 650 MG; Start 09/21/16 at 02:00 Pantoprazole (Protonix Iv) 40 mg AM IV Last administered on 11/16/16 08:41; Admin Dose 40 MG; Start 09/26/16 at 09:00 Epoetin Raj (Epogen (Esrd)) 10,000 units TuThSa@17 SC Last administered on 16:59; Admin Dose 10,000 UNITS; Start 09/26/16 at 17:00 IV Flush (NS 10 ml) 10 ml PRN PRN IV IV PROTOCOL; Start 09/26/16 at 17:30 Calcium Carbonate (Tums) 500 mg TID NGT Last administered on 11/16/16 12:32; Admin Dose 500 MG; Start 10/15/16 at 21:00 Metoprolol Tartrate (Lopressor) 25 mg BID PO Last administered on 11/16/16 08: 41; Admin Dose 25 MG; Start 10/20/16 at 21:00 Lactulose (Enulose) 20 gm BID PRN PO CONSTIPATION Last administered on 12:57; Admin Dose 20 GM; Start 10/23/16 at 10:30 Lactobacillus Acidophilus (Florajen3 Capsule) 1 each TID PO Last administered on 11/16/16 12:32; Admin Dose 1 EACH; Start 10/25/16 at 13:30 Amylase/Lipase/ Protease (CREON (01g-31g-21p)) 3 cap Q6 NGT Last administered on 11/16/16 12:32; Admin Dose 3 CAP; Start 10/29/16 at 13:00 Latanoprost (Xalatan) 1 drop HS BOTH EYES Last administered on 11/15/16 21:17 ; Admin Dose 1 DROP; Start 10/31/16 at 21:00 Dorzolamide/ Timolol (Cosopt) 1 drop BID BOTH EYES Last administered on 08:38; Admin Dose 1 DROP; Start 10/31/16 at 21:00 Miscellaneous Information 1 ea NOTE XX ; Start 11/03/16 at 18:00 Glucagon (Glucagen) 1 mg Q15M PRN IM DECREASED GLUCOSE; Start 11/03/16 at 18:00 Ondansetron HCl (Zofran Inj) 4 mg Q4H PRN IV NAUSEA AND/OR VOMITING Last administered on 11/09/16 15:21; Admin Dose 4 MG; Start 11/04/16 at 23:00 Eye Lubricant (Artificial Tears Oph) 2 drop QID BOTH EYES Last administered on 11/16/16 12:32; Admin Dose 2 DROP; Start 11/07/16 at 09:00 Sodium Biphosphate/ Sodium Phosphate (Fleet Enema) 133 ml DAILY PRN [place] CONSTIPATION; Start 11/07/16 at 19:00 Metoclopramide HCl (Reglan) 5 mg TID IV Last administered on 11/16/16 12:32; Admin Dose 5 MG; Start 11/09/16 at 13:00 Calcium Carbonate (Tums Ex) 750 mg Q6H PRN PO dyspepsia Last administered on 08:12; Admin Dose 750 MG; Start 11/09/16 at 12:30 Morphine Sulfate (morphine) 1 mg Q3H PRN IV pain; Start 11/10/16 at 08:00 Aspirin (Aspirin) 81 mg DAILY GTB Last administered on 11/16/16 08:41; Admin Dose 81 MG; Start 11/12/16 at 19:00 Insulin Aspart (Novolog Insulin Pen) NOVOLOG *MODERATE* ALGORI... Q4H SC Last administered on 11/16/16 12:34; Admin Dose 2 UNIT; Start 11/13/16 at 09:00 Miscellaneous Information 1 ea NOTE XX ; Start 11/14/16 at 10:00 Glucose (Glutose) 15 gm Q15M PRN PO DECREASED GLUCOSE; Start 11/14/16 at 10:00 Glucose (Glutose) 22.5 gm Q15M PRN PO DECREASED GLUCOSE; Start 11/14/16 at 10: 00 Dextrose (D50w Syringe) 25 ml Q15M PRN IV DECREASED GLUCOSE; Start 11/14/16 at 10:00 Dextrose (D50w Syringe) 50 ml Q15M PRN IV DECREASED GLUCOSE; Start 11/14/16 at 10:00 Glucose (Glutose) 15 gm Q15M PRN BUCCAL DECREASED GLUCOSE; Start 11/14/16 at 10 :00 Insulin Glargine (Lantus) 22 unit DAILY@08 SC ; Start 11/17/16 at 08:00 Escitalopram Oxalate (Lexapro) 10 mg DAILY GTB Last administered on 11/16/16 12:32; Admin Dose 10 MG; Start 11/16/16 at 12:30 Assessment/Plan Additional Assessment/Plan IMPRESSION: 1. Acute on chronic hypoxemic and hypercapnic respiratory failure, likely secondary to a combination of volume overload, right pleural effusion and alveolar hypoventilation from significant neuromuscular weakness status post thoracentesis. 2. History of cardiopulmonary arrest with encephalopathy. 3. Dysphagia with G-tube. 4. Renal failure on hemodialysis. RECS: 1. Incentive spirometry/OOB 2. Continue HD 3. Continue tube feeding 4. DVT and GI prophylaxis LOGAN BURKETT MD November 16, 2016 15:51
[2016-11-16] MEDS: EPOETIN 10000 UNITS/1 ML INJ (ESRD) SC SCH (17:13)
[2016-11-16] MEDS: LATANOPROST 0.005% 2.5 ML OPH BOTH EYES SCH (20:25)
[2016-11-17] VITALS (18 sets, daily range): BP systolic 89–116; BP diastolic 48–68; PULSE 72–82; RESP 16–20
[2016-11-17] MEDS: INSULIN ASPART [NOVOLOG] 3 ML PEN SC SCH ×6 (01:00→21:00)
[2016-11-17] MEDS: IPRATROPIUM (NEB) 0.5 MG/2.5 ML AMP HHN SCH ×4 (02:07→20:06)
[2016-11-17] MEDS: LEVALBUTEROL (NEB) 1.25 MG/0.5 ML AMP HHN SCH ×4 (02:07→20:06)
[2016-11-17] MEDS: CREON (12k-38k-60k) 1 CAP NGT SCH ×4 (06:00→17:24)
[2016-11-17 06:30] LABS: ADD SCAN DIFF NO
[2016-11-17 06:42] LABS: BASOPHILS % 0.2 % (0.0-2.0); EOSINOPHILS # 0.4 10^3/ul (0.0-0.5); EOSINOPHILS % 3.8 % (0.0-7.0); HEMATOCRIT 30.1 % (37.0-47.0); HEMOGLOBIN 9.2 g/dl (12.0-16.0); LYMPHOCYTES # 2.5 10^3/ul (0.8-2.9); LYMPHOCYTES % 22.7 % (15.0-51.0); MEAN CORPUSCULAR HEMOGLOBIN 29.7 pg (29.0-33.0); MEAN CORPUSCULAR HGB CONC 30.6 g/dl (32.0-37.0); MEAN CORPUSCULAR VOLUME 97.1 fl (82.0-101.0); MEAN PLATELET VOLUME 11.4 fl (7.4-10.4); MONOCYTE # 0.9 10^3/ul (0.3-0.9); MONOCYTES % 8.4 % (0.0-11.0); NEUTROPHILS % 64.2 % (39.0-77.0); NUCLEATED RED BLOOD CELLS% 0.2 /100WBC (0.0-0.0); PLATELET COUNT 151 10^3/UL (140-415); RED CELL DISTRIBUTION WIDTH 20.2 % (11.5-14.5); WHITE BLOOD COUNT 10.9 10^3/ul (4.8-10.8)
[2016-11-17 06:53] LABS: INR 1.65; PROTIME 19.6 Sec (12.2-14.2); PT RATIO 1.5
[2016-11-17 06:59] LABS: ALBUMIN 2.6 g/dl (3.3-4.9); ALBUMIN/GLOBULIN RATIO 0.83; CALCIUM 8.8 mg/dl (8.4-10.2); CREATININE 3.03 mg/dl (0.44-1.00); POTASSIUM 5.5 mmol/L (3.5-5.1); TOTAL PROTEIN 5.7 g/dl (6.1-8.1)
[2016-11-17] MEDS ORDERED: BISACODYL 10 MG SUPP PR ONE (08:00)
[2016-11-17] MEDS: ASPIRIN 81 MG TAB GTB SCH (08:04)
[2016-11-17] MEDS: PANTOPRAZOLE 40 MG INJ IV SCH (08:04)
[2016-11-17] MEDS: METOCLOPRAMIDE 10 MG INJ IV SCH ×3 (08:04→21:49)
[2016-11-17] MEDS: CALCIUM CARBONATE 500 MG CHEW TAB NGT SCH ×3 (08:05→21:00)
[2016-11-17] MEDS: L ACIDOPHIL/B LACTIS/B LONGUM CAPSULE PO SCH ×3 (08:05→21:00)
[2016-11-17] MEDS: ARTIFICIAL TEARS 15 ML OPH BOTH EYES SCH ×4 (08:05→21:48)
[2016-11-17] MEDS: DORZOLAMIDE/TIMOLOL 10 ML OPH BOTH EYES SCH ×2 (08:05→21:48)
[2016-11-17] MEDS: ESCITALOPRAM 10 MG TAB GTB SCH (08:05)
[2016-11-17] MEDS: INSULIN GLARGINE [LANtus] 3 ML PEN SC SCH (08:06)
[2016-11-17] MEDS: ONDANSETRON 4 MG INJ IV PRN (08:19)
--- NOTE | 2016-11-17 10:27 | RADRPT ---
PROCEDURE: XR Abdomen. CLINICAL INDICATION: Abdominal pain TECHNIQUE: Supine views of the abdomen were obtained. COMPARISON: None. FINDINGS: The bowel gas pattern is normal. There is no evidence of obstruction. The gastric lumen is distended . No free intraperitoneal air is seen. Surgical clips are seen in the left lower quadrant and left s radha of the pelvis. There are no abnormal calcifications overlying the urinary tracts. The osseous st ructures are unremarkable. IMPRESSION: Nonobstructive bowel gas pattern. Distended gastric lumen. RPTAT: HPNM Physician Cassy Date Time Electronically viewed and signed by Physician Casys on 11/17/2016 10:26 /
[2016-11-17] MEDS: METOPROLOL 25 MG TAB PO SCH ×2 (12:25→21:51)
--- NOTE | 2016-11-17 14:01 | CONS ---
Date/Time of Note Date/Time of Note DATE: 11/17/16 TIME: 13:56 Assessment/Plan Assessment/Plan Chief Complaint/Hosp Course 1. Acute Renal Failure due to ATN , hemodialysis dependent. s/p HD this am with 2500 cc UF. Will probably need HD again tomorrow. 2. ALOC, lethargic but responsive 3. liver enzyme elevation has resolved.. 4. CHF improved, but still volume overloaded. 5. GIB resolved 6. anemia with stable Hb 7. peripheral vascular disease . 9 dysphagia, has PEG, on TF Problems: Consultation Date/Type/Reason Admit Date/Time Sep 20, 2016 at 19:21 Initial Consult Date 10/22/16 Type of Consultation: Nephrology Referring Provider: Z[facility]DR[facility] ROBISON [facility] Interval Summary Free Text/Dictation Alert, complained of abdominal bloating, TF was held, then resumed at a lower rate (30 cc/min). Family is at the bedside. All questions answered. Exam/Review of Systems Vital Signs Vitals Vital Signs Date Time Temp Pulse Resp B/P Pulse Ox O2 Delivery O2 Flow Rate FiO2 11/17/16 13:28 20 96 Nasal Cannula 2.0 11/17/16 12:01 76 11/17/16 11:12 98.2 108/55 Intake and Output 11/16/16 11/16/16 11/17/16 15:00 23:00 07:00 Intake Total 830 ml 900 ml Balance 830 ml 900 ml Exam Constitutional: alert Neck: supple, No jvd Respiratory: clear to auscultation Cardiovascular: regular rate and rhythm Gastrointestinal: soft, tender (minimal) Extremities: edema Results Result Diagram: 11/17/16 0555 11/17/16 0555 Results 24 hrs Laboratory Tests Test 11/16/16 17:11 11/16/16 20:21 11/17/16 05:19 11/17/16 05:55 Bedside Glucose 126 123 130 White Blood Count 10.9 H Red Blood Count 3.10 L Hemoglobin 9.2 L Hematocrit 30.1 L Mean Corpuscular Volume 97.1 Mean Corpuscular Hemoglobin 29.7 Mean Corpuscular Hemoglobin Concent 30.6 L Red Cell Distribution Width 20.2 H Platelet Count 151 # Mean Platelet Volume 11.4 H Neutrophils % 64.2 Lymphocytes % 22.7 Monocytes % 8.4 Eosinophils % 3.8 Basophils % 0.2 Nucleated Red Blood Cells % 0.2 H Neutrophils # 7.0 Lymphocytes # 2.5 Monocytes # 0.9 Eosinophils # 0.4 Basophils # 0.0 Nucleated Red Blood Cells # 0.0 Prothrombin Time 19.6 #H Prothrombin Time Ratio 1.5 INR International Normalized Ratio 1.65 Sodium Level 129 L Potassium Level 5.5 H Chloride Level 96 L Carbon Dioxide Level 26 Anion Gap 13 Blood Urea Nitrogen 66 H Creatinine 3.03 H Glucose Level 133 Calcium Level 8.8 Magnesium Level 2.5 Total Bilirubin 0.0 L Direct Bilirubin 0.00 Indirect Bilirubin 0.0 Aspartate Amino Transf (AST/SGOT) 29 Alanine Aminotransferase (ALT/SGPT) 36 Alkaline Phosphatase 169 H Total Protein 5.7 L Albumin 2.6 L Globulin 3.10 Albumin/Globulin Ratio 0.83 Test 11/17/16 08:01 11/17/16 12:09 Bedside Glucose 168 171 Medications Medications Current Medications Acetaminophen (Tylenol Liquid) 650 mg Q4H PRN NGT PAIN AND OR ELEVATED TEMP Last administered on 11/09/16 11:10; Admin Dose 650 MG; Start 09/21/16 at 02:00 Pantoprazole (Protonix Iv) 40 mg AM IV Last administered on 11/17/16 08:04; Admin Dose 40 MG; Start 09/26/16 at 09:00 Epoetin Raj (Epogen (Esrd)) 10,000 units TuThSa@17 SC Last administered on 17:13; Admin Dose 10,000 UNITS; Start 09/26/16 at 17:00 IV Flush (NS 10 ml) 10 ml PRN PRN IV IV PROTOCOL; Start 09/26/16 at 17:30 Calcium Carbonate (Tums) 500 mg TID NGT Last administered on 11/17/16 12:25; Admin Dose 500 MG; Start 10/15/16 at 21:00 Metoprolol Tartrate (Lopressor) 25 mg BID PO Last administered on 11/17/16 12: 25; Admin Dose 25 MG; Start 10/20/16 at 21:00 Lactulose (Enulose) 20 gm BID PRN PO CONSTIPATION Last administered on 12:57; Admin Dose 20 GM; Start 10/23/16 at 10:30 Lactobacillus Acidophilus (Florajen3 Capsule) 1 each TID PO Last administered on 11/17/16 12:26; Admin Dose 1 EACH; Start 10/25/16 at 13:30 Amylase/Lipase/ Protease (CREON (26n-28k-95p)) 3 cap Q6 NGT Last administered on 11/16/16 18:46; Admin Dose 3 CAP; Start 10/29/16 at 13:00 Latanoprost (Xalatan) 1 drop HS BOTH EYES Last administered on 11/16/16 20:25 ; Admin Dose 1 DROP; Start 10/31/16 at 21:00 Dorzolamide/ Timolol (Cosopt) 1 drop BID BOTH EYES Last administered on 08:05; Admin Dose 1 DROP; Start 10/31/16 at 21:00 Miscellaneous Information 1 ea NOTE XX ; Start 11/03/16 at 18:00 Glucagon (Glucagen) 1 mg Q15M PRN IM DECREASED GLUCOSE; Start 11/03/16 at 18:00 Ondansetron HCl (Zofran Inj) 4 mg Q4H PRN IV NAUSEA AND/OR VOMITING Last administered on 11/17/16 08:19; Admin Dose 4 MG; Start 11/04/16 at 23:00 Eye Lubricant (Artificial Tears Oph) 2 drop QID BOTH EYES Last administered on 11/17/16 12:25; Admin Dose 2 DROP; Start 11/07/16 at 09:00 Sodium Biphosphate/ Sodium Phosphate (Fleet Enema) 133 ml DAILY PRN [place] CONSTIPATION; Start 11/07/16 at 19:00 Metoclopramide HCl (Reglan) 5 mg TID IV Last administered on 11/17/16 12:25; Admin Dose 5 MG; Start 11/09/16 at 13:00 Calcium Carbonate (Tums Ex) 750 mg Q6H PRN PO dyspepsia Last administered on 08:12; Admin Dose 750 MG; Start 11/09/16 at 12:30 Morphine Sulfate (morphine) 1 mg Q3H PRN IV pain; Start 11/10/16 at 08:00 Aspirin (Aspirin) 81 mg DAILY GTB Last administered on 11/17/16 08:04; Admin Dose 81 MG; Start 11/12/16 at 19:00 Insulin Aspart (Novolog Insulin Pen) NOVOLOG *MODERATE* ALGORI... Q4H SC Last administered on 11/17/16 12:34; Admin Dose 2 UNIT; Start 11/13/16 at 09:00 Miscellaneous Information 1 ea NOTE XX ; Start 11/14/16 at 10:00 Glucose (Glutose) 15 gm Q15M PRN PO DECREASED GLUCOSE; Start 11/14/16 at 10:00 Glucose (Glutose) 22.5 gm Q15M PRN PO DECREASED GLUCOSE; Start 11/14/16 at 10: 00 Dextrose (D50w Syringe) 25 ml Q15M PRN IV DECREASED GLUCOSE; Start 11/14/16 at 10:00 Dextrose (D50w Syringe) 50 ml Q15M PRN IV DECREASED GLUCOSE; Start 11/14/16 at 10:00 Glucose (Glutose) 15 gm Q15M PRN BUCCAL DECREASED GLUCOSE; Start 11/14/16 at 10 :00 Insulin Glargine (Lantus) 22 unit DAILY@08 SC Last administered on 11/17/16 08 :06; Admin Dose 22 UNIT; Start 11/17/16 at 08:00 Escitalopram Oxalate (Lexapro) 10 mg DAILY GTB Last administered on 11/17/16 08:05; Admin Dose 10 MG; Start 11/16/16 at 12:30 SHAW LY MD November 17, 2016 14:01
--- NOTE | 2016-11-17 14:49 | CONS ---
Date/Time of Note Date/Time of Note DATE: 11/17/16 TIME: 14:48 Consult Date/Type/Reason Admit Date/Time Sep 20, 2016 at 19:21 Initial Consult Date 09/23/16 Type of Consultation: Pulm Ordering Provider: ZANDRA ROBISON MD, [facility] Subjective confused. Increased residuals noted. Objective Vital Signs Date Time Temp Pulse Resp B/P Pulse Ox O2 Delivery O2 Flow Rate FiO2 11/17/16 13:28 20 96 Nasal Cannula 2.0 11/17/16 12:01 76 11/17/16 11:12 98.2 108/55 Intake and Output 11/16/16 11/16/16 11/17/16 15:00 23:00 07:00 Intake Total 830 ml 900 ml Balance 830 ml 900 ml Exam NECK: Supple. No JVD or lymphadenopathy. CARDIAC EXAM: S1, S2. No added sounds or murmurs. CHEST: clear bilaterally, No added sounds, rales or wheezes ABDOMEN: Soft, nontender. No guarding or rebound. EXTREMITIES: No cyanosis, clubbing or edema. Results/Medications Result Diagram: 11/17/16 0555 11/17/16 0555 Results 24 hrs Laboratory Tests Test 11/16/16 17:11 11/16/16 20:21 11/17/16 05:19 11/17/16 05:55 Bedside Glucose 126 123 130 White Blood Count 10.9 H Red Blood Count 3.10 L Hemoglobin 9.2 L Hematocrit 30.1 L Mean Corpuscular Volume 97.1 Mean Corpuscular Hemoglobin 29.7 Mean Corpuscular Hemoglobin Concent 30.6 L Red Cell Distribution Width 20.2 H Platelet Count 151 # Mean Platelet Volume 11.4 H Neutrophils % 64.2 Lymphocytes % 22.7 Monocytes % 8.4 Eosinophils % 3.8 Basophils % 0.2 Nucleated Red Blood Cells % 0.2 H Neutrophils # 7.0 Lymphocytes # 2.5 Monocytes # 0.9 Eosinophils # 0.4 Basophils # 0.0 Nucleated Red Blood Cells # 0.0 Prothrombin Time 19.6 #H Prothrombin Time Ratio 1.5 INR International Normalized Ratio 1.65 Sodium Level 129 L Potassium Level 5.5 H Chloride Level 96 L Carbon Dioxide Level 26 Anion Gap 13 Blood Urea Nitrogen 66 H Creatinine 3.03 H Glucose Level 133 Calcium Level 8.8 Magnesium Level 2.5 Total Bilirubin 0.0 L Direct Bilirubin 0.00 Indirect Bilirubin 0.0 Aspartate Amino Transf (AST/SGOT) 29 Alanine Aminotransferase (ALT/SGPT) 36 Alkaline Phosphatase 169 H Total Protein 5.7 L Albumin 2.6 L Globulin 3.10 Albumin/Globulin Ratio 0.83 Test 11/17/16 08:01 11/17/16 12:09 Bedside Glucose 168 171 Medications Current Medications Acetaminophen (Tylenol Liquid) 650 mg Q4H PRN NGT PAIN AND OR ELEVATED TEMP Last administered on 11/09/16 11:10; Admin Dose 650 MG; Start 09/21/16 at 02:00 Pantoprazole (Protonix Iv) 40 mg AM IV Last administered on 11/17/16 08:04; Admin Dose 40 MG; Start 09/26/16 at 09:00 Epoetin Raj (Epogen (Esrd)) 10,000 units TuThSa@17 SC Last administered on 17:13; Admin Dose 10,000 UNITS; Start 09/26/16 at 17:00 IV Flush (NS 10 ml) 10 ml PRN PRN IV IV PROTOCOL; Start 09/26/16 at 17:30 Calcium Carbonate (Tums) 500 mg TID NGT Last administered on 11/17/16 12:25; Admin Dose 500 MG; Start 10/15/16 at 21:00 Metoprolol Tartrate (Lopressor) 25 mg BID PO Last administered on 11/17/16 12: 25; Admin Dose 25 MG; Start 10/20/16 at 21:00 Lactulose (Enulose) 20 gm BID PRN PO CONSTIPATION Last administered on 12:57; Admin Dose 20 GM; Start 10/23/16 at 10:30 Lactobacillus Acidophilus (Florajen3 Capsule) 1 each TID PO Last administered on 11/17/16 12:26; Admin Dose 1 EACH; Start 10/25/16 at 13:30 Amylase/Lipase/ Protease (CREON (12k-23k-60k)) 3 cap Q6 NGT Last administered on 11/16/16 18:46; Admin Dose 3 CAP; Start 10/29/16 at 13:00 Latanoprost (Xalatan) 1 drop HS BOTH EYES Last administered on 11/16/16 20:25 ; Admin Dose 1 DROP; Start 10/31/16 at 21:00 Dorzolamide/ Timolol (Cosopt) 1 drop BID BOTH EYES Last administered on 08:05; Admin Dose 1 DROP; Start 10/31/16 at 21:00 Miscellaneous Information 1 ea NOTE XX ; Start 11/03/16 at 18:00 Glucagon (Glucagen) 1 mg Q15M PRN IM DECREASED GLUCOSE; Start 11/03/16 at 18:00 Ondansetron HCl (Zofran Inj) 4 mg Q4H PRN IV NAUSEA AND/OR VOMITING Last administered on 11/17/16 08:19; Admin Dose 4 MG; Start 11/04/16 at 23:00 Eye Lubricant (Artificial Tears Oph) 2 drop QID BOTH EYES Last administered on 11/17/16 12:25; Admin Dose 2 DROP; Start 11/07/16 at 09:00 Sodium Biphosphate/ Sodium Phosphate (Fleet Enema) 133 ml DAILY PRN [place] CONSTIPATION; Start 11/07/16 at 19:00 Metoclopramide HCl (Reglan) 5 mg TID IV Last administered on 11/17/16 12:25; Admin Dose 5 MG; Start 11/09/16 at 13:00 Calcium Carbonate (Tums Ex) 750 mg Q6H PRN PO dyspepsia Last administered on 08:12; Admin Dose 750 MG; Start 11/09/16 at 12:30 Morphine Sulfate (morphine) 1 mg Q3H PRN IV pain; Start 11/10/16 at 08:00 Aspirin (Aspirin) 81 mg DAILY GTB Last administered on 11/17/16 08:04; Admin Dose 81 MG; Start 11/12/16 at 19:00 Insulin Aspart (Novolog Insulin Pen) NOVOLOG *MODERATE* [place]I... Q4H SC Last administered on 11/17/16 12:34; Admin Dose 2 UNIT; Start 11/13/16 at 09:00 Miscellaneous Information 1 ea NOTE XX ; Start 11/14/16 at 10:00 Glucose (Glutose) 15 gm Q15M PRN PO DECREASED GLUCOSE; Start 11/14/16 at 10:00 Glucose (Glutose) 22.5 gm Q15M PRN PO DECREASED GLUCOSE; Start 11/14/16 at 10: 00 Dextrose (D50w Syringe) 25 ml Q15M PRN IV DECREASED GLUCOSE; Start 11/14/16 at 10:00 Dextrose (D50w Syringe) 50 ml Q15M PRN IV DECREASED GLUCOSE; Start 11/14/16 at 10:00 Glucose (Glutose) 15 gm Q15M PRN BUCCAL DECREASED GLUCOSE; Start 11/14/16 at 10 :00 Insulin Glargine (Lantus) 22 unit DAILY@08 SC Last administered on 11/17/16 08 :06; Admin Dose 22 UNIT; Start 11/17/16 at 08:00 Escitalopram Oxalate (Lexapro) 10 mg DAILY GTB Last administered on 11/17/16 08:05; Admin Dose 10 MG; Start 11/16/16 at 12:30 Assessment/Plan Additional Assessment/Plan IMPRESSION: 1. Acute on chronic hypoxemic and hypercapnic respiratory failure, likely secondary to a combination of volume overload, right pleural effusion and alveolar hypoventilation from significant neuromuscular weakness status post thoracentesis. 2. History of cardiopulmonary arrest with encephalopathy. 3. Dysphagia with G-tube. 4. Renal failure on hemodialysis. RECS: 1. Incentive spirometry/OOB 2. Continue HD 3. Hold TF 4. DVT prophylaxis LOGAN BURKETT MD November 17, 2016 14:49
--- NOTE | 2016-11-17 17:06 | PN ---
Date/Time of Note Date/Time of Note DATE: 11/16/16 TIME: 20:57 Assessment/Plan VTE Prophylaxis VTE Prophylaxis Intervention: other (ASA) Lines/Catheters IV Catheter Type (from Nrs): PICC Line Central line still needed: No Urinary Cath still in place: No Assessment/Plan Assessment/Plan 1. CAD/ PAD/ NEEDING ANTICOAG 2. RLD 3. ARF/ EDEMA/ ANEMIA 4. DM 5. PEG FEED ---PER CARDS ---PER PULM ---PER RENAL ---SCHED BED SIDE SWALLOW TEST ---ICE CHIPS TRIAL OK ---INC LANTUS Subjective 24 Hr Interval Summary Free Text/Dictation AWAKE, WANTS TO DO SWALLOW TEST, FAMILY WANTS HER HOME AFTER HOSP Exam/Review of Systems Vital Signs Vitals Vital Signs Date Time Temp Pulse Resp B/P Pulse Ox O2 Delivery O2 Flow Rate FiO2 11/17/16 16:07 76 11/17/16 15:28 97.7 18 105/56 100 11/17/16 13:28 Nasal Cannula 2.0 Intake and Output 11/16/16 11/16/16 11/17/16 15:00 23:00 07:00 Intake Total 830 ml 900 ml Balance 830 ml 900 ml Results Result Diagram: 11/17/16 0555 11/17/16 0555 Results 24 hrs Laboratory Tests Test 11/16/16 17:11 11/16/16 20:21 11/17/16 05:19 11/17/16 05:55 Bedside Glucose 126 123 130 White Blood Count 10.9 H Red Blood Count 3.10 L Hemoglobin 9.2 L Hematocrit 30.1 L Mean Corpuscular Volume 97.1 Mean Corpuscular Hemoglobin 29.7 Mean Corpuscular Hemoglobin Concent 30.6 L Red Cell Distribution Width 20.2 H Platelet Count 151 # Mean Platelet Volume 11.4 H Neutrophils % 64.2 Lymphocytes % 22.7 Monocytes % 8.4 Eosinophils % 3.8 Basophils % 0.2 Nucleated Red Blood Cells % 0.2 H Neutrophils # 7.0 Lymphocytes # 2.5 Monocytes # 0.9 Eosinophils # 0.4 Basophils # 0.0 Nucleated Red Blood Cells # 0.0 Prothrombin Time 19.6 #H Prothrombin Time Ratio 1.5 INR International Normalized Ratio 1.65 Sodium Level 129 L Potassium Level 5.5 H Chloride Level 96 L Carbon Dioxide Level 26 Anion Gap 13 Blood Urea Nitrogen 66 H Creatinine 3.03 H Glucose Level 133 Calcium Level 8.8 Magnesium Level 2.5 Total Bilirubin 0.0 L Direct Bilirubin 0.00 Indirect Bilirubin 0.0 Aspartate Amino Transf (AST/SGOT) 29 Alanine Aminotransferase (ALT/SGPT) 36 Alkaline Phosphatase 169 H Total Protein 5.7 L Albumin 2.6 L Globulin 3.10 Albumin/Globulin Ratio 0.83 Test 11/17/16 08:01 11/17/16 12:09 Bedside Glucose 168 171 Medications Medications Current Medications Acetaminophen (Tylenol Liquid) 650 mg Q4H PRN NGT PAIN AND OR ELEVATED TEMP Last administered on 11/09/16 11:10; Admin Dose 650 MG; Start 09/21/16 at 02:00 Pantoprazole (Protonix Iv) 40 mg AM IV Last administered on 11/17/16 08:04; Admin Dose 40 MG; Start 09/26/16 at 09:00 Epoetin Raj (Epogen (Esrd)) 10,000 units TuThSa@17 SC Last administered on 17:13; Admin Dose 10,000 UNITS; Start 09/26/16 at 17:00 IV Flush (NS 10 ml) 10 ml PRN PRN IV IV PROTOCOL; Start 09/26/16 at 17:30 Calcium Carbonate (Tums) 500 mg TID NGT Last administered on 11/17/16 12:25; Admin Dose 500 MG; Start 10/15/16 at 21:00 Metoprolol Tartrate (Lopressor) 25 mg BID PO Last administered on 11/17/16 12: 25; Admin Dose 25 MG; Start 10/20/16 at 21:00 Lactulose (Enulose) 20 gm BID PRN PO CONSTIPATION Last administered on 12:57; Admin Dose 20 GM; Start 10/23/16 at 10:30 Lactobacillus Acidophilus (Florajen3 Capsule) 1 each TID PO Last administered on 11/17/16 12:26; Admin Dose 1 EACH; Start 10/25/16 at 13:30 Amylase/Lipase/ Protease (CREON (04l-29k-60k)) 3 cap Q6 NGT Last administered on 11/16/16 18:46; Admin Dose 3 CAP; Start 10/29/16 at 13:00 Latanoprost (Xalatan) 1 drop HS BOTH EYES Last administered on 11/16/16 20:25 ; Admin Dose 1 DROP; Start 10/31/16 at 21:00 Dorzolamide/ Timolol (Cosopt) 1 drop BID BOTH EYES Last administered on 08:05; Admin Dose 1 DROP; Start 10/31/16 at 21:00 Miscellaneous Information 1 ea NOTE XX ; Start 11/03/16 at 18:00 Glucagon (Glucagen) 1 mg Q15M PRN IM DECREASED GLUCOSE; Start 11/03/16 at 18:00 Ondansetron HCl (Zofran Inj) 4 mg Q4H PRN IV NAUSEA AND/OR VOMITING Last administered on 11/17/16 08:19; Admin Dose 4 MG; Start 11/04/16 at 23:00 Eye Lubricant (Artificial Tears Oph) 2 drop QID BOTH EYES Last administered on 11/17/16 12:25; Admin Dose 2 DROP; Start 11/07/16 at 09:00 Sodium Biphosphate/ Sodium Phosphate (Fleet Enema) 133 ml DAILY PRN [place] CONSTIPATION; Start 11/07/16 at 19:00 Metoclopramide HCl (Reglan) 5 mg TID IV Last administered on 11/17/16 12:25; Admin Dose 5 MG; Start 11/09/16 at 13:00 Calcium Carbonate (Tums Ex) 750 mg Q6H PRN PO dyspepsia Last administered on 08:12; Admin Dose 750 MG; Start 11/09/16 at 12:30 Morphine Sulfate (morphine) 1 mg Q3H PRN IV pain; Start 11/10/16 at 08:00 Aspirin (Aspirin) 81 mg DAILY GTB Last administered on 11/17/16 08:04; Admin Dose 81 MG; Start 11/12/16 at 19:00 Insulin Aspart (Novolog Insulin Pen) NOVOLOG *MODERATE* ALGORI... Q4H SC Last administered on 11/17/16 12:34; Admin Dose 2 UNIT; Start 11/13/16 at 09:00 Miscellaneous Information 1 ea NOTE XX ; Start 11/14/16 at 10:00 Glucose (Glutose) 15 gm Q15M PRN PO DECREASED GLUCOSE; Start 11/14/16 at 10:00 Glucose (Glutose) 22.5 gm Q15M PRN PO DECREASED GLUCOSE; Start 11/14/16 at 10: 00 Dextrose (D50w Syringe) 25 ml Q15M PRN IV DECREASED GLUCOSE; Start 11/14/16 at 10:00 Dextrose (D50w Syringe) 50 ml Q15M PRN IV DECREASED GLUCOSE; Start 11/14/16 at 10:00 Glucose (Glutose) 15 gm Q15M PRN BUCCAL DECREASED GLUCOSE; Start 11/14/16 at 10 :00 Insulin Glargine (Lantus) 22 unit DAILY@08 SC Last administered on 11/17/16 08 :06; Admin Dose 22 UNIT; Start 11/17/16 at 08:00 Escitalopram Oxalate (Lexapro) 10 mg DAILY GTB Last administered on 11/17/16 08:05; Admin Dose 10 MG; Start 11/16/16 at 12:30 SHAMA LOPEZ MD November 17, 2016 17:06
--- NOTE | 2016-11-17 17:19 | PN ---
Date/Time of Note Date/Time of Note DATE: 11/17/16 TIME: 17:13 Assessment/Plan VTE Prophylaxis VTE Prophylaxis Intervention: other (ASA) Lines/Catheters IV Catheter Type (from Nrsg): PICC Line Central line still needed: No Urinary Cath still in place: No Assessment/Plan Assessment/Plan 1. CAD/ HTN/ PAD/ ANTICOAG NEEDED 2. RLD--S/P THORACENTESIS 3. ARF--DIALYSIS DEP STILL 4. DM--GLUC RISING AGAIN 5. PEG FEED 6. DEPRESSION ---PER CARDS ---PER PULM ---PER RENAL ---INC LANTUS ---CONSIDERING [facility] TRANSFER & THEN SNF FOLLOWED BY [facility] ---VERY SLOW PROGRESS TO RECOVERY, GUARDED PROGNOSIS Subjective 24 Hr Interval Summary Free Text/Dictation AWAKE, "TIRED, NO PAIN" Exam/Review of Systems Vital Signs Vitals Vital Signs Date Time Temp Pulse Resp B/P Pulse Ox O2 Delivery O2 Flow Rate FiO2 11/17/16 16:07 76 11/17/16 15:28 97.7 18 105/56 100 11/17/16 13:28 Nasal Cannula 2.0 Intake and Output 11/16/16 11/16/16 11/17/16 15:00 23:00 07:00 Intake Total 830 ml 900 ml Balance 830 ml 900 ml Exam IN BED, OBESE DEC BS RR DIAST M+ LESS EDEMA STILL WEAK MUSC STRENGTH+ Results Result Diagram: 11/17/16 0555 11/17/16 0555 Results 24 hrs Laboratory Tests Test 11/16/16 20:21 11/17/16 05:19 11/17/16 05:55 11/17/16 08:01 Bedside Glucose 123 130 168 White Blood Count 10.9 H Red Blood Count 3.10 L Hemoglobin 9.2 L Hematocrit 30.1 L Mean Corpuscular Volume 97.1 Mean Corpuscular Hemoglobin 29.7 Mean Corpuscular Hemoglobin Concent 30.6 L Red Cell Distribution Width 20.2 H Platelet Count 151 # Mean Platelet Volume 11.4 H Neutrophils % 64.2 Lymphocytes % 22.7 Monocytes % 8.4 Eosinophils % 3.8 Basophils % 0.2 Nucleated Red Blood Cells % 0.2 H Neutrophils # 7.0 Lymphocytes # 2.5 Monocytes # 0.9 Eosinophils # 0.4 Basophils # 0.0 Nucleated Red Blood Cells # 0.0 Prothrombin Time 19.6 #H Prothrombin Time Ratio 1.5 INR International Normalized Ratio 1.65 Sodium Level 129 L Potassium Level 5.5 H Chloride Level 96 L Carbon Dioxide Level 26 Anion Gap 13 Blood Urea Nitrogen 66 H Creatinine 3.03 H Glucose Level 133 Calcium Level 8.8 Magnesium Level 2.5 Total Bilirubin 0.0 L Direct Bilirubin 0.00 Indirect Bilirubin 0.0 Aspartate Amino Transf (AST/SGOT) 29 Alanine Aminotransferase (ALT/SGPT) 36 Alkaline Phosphatase 169 H Total Protein 5.7 L Albumin 2.6 L Globulin 3.10 Albumin/Globulin Ratio 0.83 Test 11/17/16 12:09 Bedside Glucose 171 Medications Medications Current Medications Acetaminophen (Tylenol Liquid) 650 mg Q4H PRN NGT PAIN AND OR ELEVATED TEMP Last administered on 11/09/16 11:10; Admin Dose 650 MG; Start 09/21/16 at 02:00 Pantoprazole (Protonix Iv) 40 mg AM IV Last administered on 11/17/16 08:04; Admin Dose 40 MG; Start 09/26/16 at 09:00 Epoetin Raj (Epogen (Esrd)) 10,000 units TuThSa@17 SC Last administered on 17:13; Admin Dose 10,000 UNITS; Start 09/26/16 at 17:00 IV Flush (NS 10 ml) 10 ml PRN PRN IV IV PROTOCOL; Start 09/26/16 at 17:30 Calcium Carbonate (Tums) 500 mg TID NGT Last administered on 11/17/16 12:25; Admin Dose 500 MG; Start 10/15/16 at 21:00 Metoprolol Tartrate (Lopressor) 25 mg BID PO Last administered on 11/17/16 12: 25; Admin Dose 25 MG; Start 10/20/16 at 21:00 Lactulose (Enulose) 20 gm BID PRN PO CONSTIPATION Last administered on 12:57; Admin Dose 20 GM; Start 10/23/16 at 10:30 Lactobacillus Acidophilus (Florajen3 Capsule) 1 each TID PO Last administered on 11/17/16 12:26; Admin Dose 1 EACH; Start 10/25/16 at 13:30 Amylase/Lipase/ Protease (CREON (08x-89k-60k)) 3 cap Q6 NGT Last administered on 11/16/16 18:46; Admin Dose 3 CAP; Start 10/29/16 at 13:00 Latanoprost (Xalatan) 1 drop HS BOTH EYES Last administered on 11/16/16 20:25 ; Admin Dose 1 DROP; Start 10/31/16 at 21:00 Dorzolamide/ Timolol (Cosopt) 1 drop BID BOTH EYES Last administered on 08:05; Admin Dose 1 DROP; Start 10/31/16 at 21:00 Miscellaneous Information 1 ea NOTE XX ; Start 11/03/16 at 18:00 Glucagon (Glucagen) 1 mg Q15M PRN IM DECREASED GLUCOSE; Start 11/03/16 at 18:00 Ondansetron HCl (Zofran Inj) 4 mg Q4H PRN IV NAUSEA AND/OR VOMITING Last administered on 11/17/16 08:19; Admin Dose 4 MG; Start 11/04/16 at 23:00 Eye Lubricant (Artificial Tears Oph) 2 drop QID BOTH EYES Last administered on 11/17/16 12:25; Admin Dose 2 DROP; Start 11/07/16 at 09:00 Sodium Biphosphate/ Sodium Phosphate (Fleet Enema) 133 ml DAILY PRN [place] CONSTIPATION; Start 11/07/16 at 19:00 Metoclopramide HCl (Reglan) 5 mg TID IV Last administered on 11/17/16 12:25; Admin Dose 5 MG; Start 11/09/16 at 13:00 Calcium Carbonate (Tums Ex) 750 mg Q6H PRN PO dyspepsia Last administered on 08:12; Admin Dose 750 MG; Start 11/09/16 at 12:30 Morphine Sulfate (morphine) 1 mg Q3H PRN IV pain; Start 11/10/16 at 08:00 Aspirin (Aspirin) 81 mg DAILY GTB Last administered on 11/17/16 08:04; Admin Dose 81 MG; Start 11/12/16 at 19:00 Insulin Aspart (Novolog Insulin Pen) NOVOLOG *MODERATE* ALGORI... Q4H SC Last administered on 11/17/16 12:34; Admin Dose 2 UNIT; Start 11/13/16 at 09:00 Miscellaneous Information 1 ea NOTE XX ; Start 11/14/16 at 10:00 Glucose (Glutose) 15 gm Q15M PRN PO DECREASED GLUCOSE; Start 11/14/16 at 10:00 Glucose (Glutose) 22.5 gm Q15M PRN PO DECREASED GLUCOSE; Start 11/14/16 at 10: 00 Dextrose (D50w Syringe) 25 ml Q15M PRN IV DECREASED GLUCOSE; Start 11/14/16 at 10:00 Dextrose (D50w Syringe) 50 ml Q15M PRN IV DECREASED GLUCOSE; Start 11/14/16 at 10:00 Glucose (Glutose) 15 gm Q15M PRN BUCCAL DECREASED GLUCOSE; Start 11/14/16 at 10 :00 Insulin Glargine (Lantus) 22 unit DAILY@08 SC Last administered on 11/17/16 08 :06; Admin Dose 22 UNIT; Start 11/17/16 at 08:00 Escitalopram Oxalate (Lexapro) 10 mg DAILY GTB Last administered on 11/17/16 08:05; Admin Dose 10 MG; Start 11/16/16 at 12:30 SHAMA LOPEZ MD November 17, 2016 17:19
--- NOTE | 2016-11-17 18:12 | CONS ---
Date/Time of Note Date/Time of Note DATE: 11/17/16 TIME: 18:10 Assessment/Plan Assessment/Plan Chief Complaint/Hosp Course gastric ulcer stable gi bleeding Problems: Additional Assessment/Plan stable gastric ulcer bleeding Consultation Date/Type/Reason Admit Date/Time Sep 20, 2016 at 19:21 Initial Consult Date 10/22/16 Type of Consultation: Pulm Referring Provider: ZANDRA ROBISON MD, [facility] 24 HR Interval Summary Free Text/Dictation pt non verbal h/o abd pain earlier today ok now Exam/Review of Systems Vital Signs Vitals Vital Signs Date Time Temp Pulse Resp B/P Pulse Ox O2 Delivery O2 Flow Rate FiO2 11/17/16 16:07 76 11/17/16 15:28 97.7 18 105/56 100 11/17/16 13:28 Nasal Cannula 2.0 Intake and Output 11/16/16 11/16/16 11/17/16 15:00 23:00 07:00 Intake Total 830 ml 900 ml Balance 830 ml 900 ml Exam abd soft tlerating g t feeding Results Result Diagram: 11/17/16 0555 11/17/16 0555 Results 24 hrs Laboratory Tests Test 11/16/16 20:21 11/17/16 05:19 11/17/16 05:55 11/17/16 08:01 Bedside Glucose 123 130 168 White Blood Count 10.9 H Red Blood Count 3.10 L Hemoglobin 9.2 L Hematocrit 30.1 L Mean Corpuscular Volume 97.1 Mean Corpuscular Hemoglobin 29.7 Mean Corpuscular Hemoglobin Concent 30.6 L Red Cell Distribution Width 20.2 H Platelet Count 151 # Mean Platelet Volume 11.4 H Neutrophils % 64.2 Lymphocytes % 22.7 Monocytes % 8.4 Eosinophils % 3.8 Basophils % 0.2 Nucleated Red Blood Cells % 0.2 H Neutrophils # 7.0 Lymphocytes # 2.5 Monocytes # 0.9 Eosinophils # 0.4 Basophils # 0.0 Nucleated Red Blood Cells # 0.0 Prothrombin Time 19.6 #H Prothrombin Time Ratio 1.5 INR International Normalized Ratio 1.65 Sodium Level 129 L Potassium Level 5.5 H Chloride Level 96 L Carbon Dioxide Level 26 Anion Gap 13 Blood Urea Nitrogen 66 H Creatinine 3.03 H Glucose Level 133 Calcium Level 8.8 Magnesium Level 2.5 Total Bilirubin 0.0 L Direct Bilirubin 0.00 Indirect Bilirubin 0.0 Aspartate Amino Transf (AST/SGOT) 29 Alanine Aminotransferase (ALT/SGPT) 36 Alkaline Phosphatase 169 H Total Protein 5.7 L Albumin 2.6 L Globulin 3.10 Albumin/Globulin Ratio 0.83 Test 11/17/16 12:09 11/17/16 17:19 Bedside Glucose 171 190 Medications Medications Current Medications Acetaminophen (Tylenol Liquid) 650 mg Q4H PRN NGT PAIN AND OR ELEVATED TEMP Last administered on 11/09/16 11:10; Admin Dose 650 MG; Start 09/21/16 at 02:00 Pantoprazole (Protonix Iv) 40 mg AM IV Last administered on 11/17/16 08:04; Admin Dose 40 MG; Start 09/26/16 at 09:00 Epoetin Raj (Epogen (Esrd)) 10,000 units TuThSa@17 SC Last administered on 17:13; Admin Dose 10,000 UNITS; Start 09/26/16 at 17:00 IV Flush (NS 10 ml) 10 ml PRN PRN IV IV PROTOCOL; Start 09/26/16 at 17:30 Calcium Carbonate (Tums) 500 mg TID NGT Last administered on 11/17/16 12:25; Admin Dose 500 MG; Start 10/15/16 at 21:00 Metoprolol Tartrate (Lopressor) 25 mg BID PO Last administered on 11/17/16 12: 25; Admin Dose 25 MG; Start 10/20/16 at 21:00 Lactulose (Enulose) 20 gm BID PRN PO CONSTIPATION Last administered on 12:57; Admin Dose 20 GM; Start 10/23/16 at 10:30 Lactobacillus Acidophilus (Florajen3 Capsule) 1 each TID PO Last administered on 11/17/16 12:26; Admin Dose 1 EACH; Start 10/25/16 at 13:30 Amylase/Lipase/ Protease (CREON (12k-38k-60k)) 3 cap Q6 NGT Last administered on 11/16/16 18:46; Admin Dose 3 CAP; Start 10/29/16 at 13:00 Latanoprost (Xalatan) 1 drop HS BOTH EYES Last administered on 11/16/16 20:25 ; Admin Dose 1 DROP; Start 10/31/16 at 21:00 Dorzolamide/ Timolol (Cosopt) 1 drop BID BOTH EYES Last administered on 08:05; Admin Dose 1 DROP; Start 10/31/16 at 21:00 Miscellaneous Information 1 ea NOTE XX ; Start 11/03/16 at 18:00 Glucagon (Glucagen) 1 mg Q15M PRN IM DECREASED GLUCOSE; Start 11/03/16 at 18:00 Ondansetron HCl (Zofran Inj) 4 mg Q4H PRN IV NAUSEA AND/OR VOMITING Last administered on 11/17/16 08:19; Admin Dose 4 MG; Start 11/04/16 at 23:00 Eye Lubricant (Artificial Tears Oph) 2 drop QID BOTH EYES Last administered on 11/17/16 17:20; Admin Dose 2 DROP; Start 11/07/16 at 09:00 Sodium Biphosphate/ Sodium Phosphate (Fleet Enema) 133 ml DAILY PRN [place] CONSTIPATION; Start 11/07/16 at 19:00 Metoclopramide HCl (Reglan) 5 mg TID IV Last administered on 11/17/16 12:25; Admin Dose 5 MG; Start 11/09/16 at 13:00 Calcium Carbonate (Tums Ex) 750 mg Q6H PRN PO dyspepsia Last administered on 08:12; Admin Dose 750 MG; Start 11/09/16 at 12:30 Morphine Sulfate (morphine) 1 mg Q3H PRN IV pain; Start 11/10/16 at 08:00 Aspirin (Aspirin) 81 mg DAILY GTB Last administered on 11/17/16 08:04; Admin Dose 81 MG; Start 11/12/16 at 19:00 Insulin Aspart (Novolog Insulin Pen) NOVOLOG *MODERATE* ALGORI... Q4H SC Last administered on 11/17/16 17:23; Admin Dose 4 UNIT; Start 11/13/16 at 09:00 Miscellaneous Information 1 ea NOTE XX ; Start 11/14/16 at 10:00 Glucose (Glutose) 15 gm Q15M PRN PO DECREASED GLUCOSE; Start 11/14/16 at 10:00 Glucose (Glutose) 22.5 gm Q15M PRN PO DECREASED GLUCOSE; Start 11/14/16 at 10: 00 Dextrose (D50w Syringe) 25 ml Q15M PRN IV DECREASED GLUCOSE; Start 11/14/16 at 10:00 Dextrose (D50w Syringe) 50 ml Q15M PRN IV DECREASED GLUCOSE; Start 11/14/16 at 10:00 Glucose (Glutose) 15 gm Q15M PRN BUCCAL DECREASED GLUCOSE; Start 11/14/16 at 10 :00 Insulin Glargine (Lantus) 22 unit DAILY@08 SC Last administered on 11/17/16 08 :06; Admin Dose 22 UNIT; Start 11/17/16 at 08:00 Escitalopram Oxalate (Lexapro) 10 mg DAILY GTB Last administered on 11/17/16 08:05; Admin Dose 10 MG; Start 11/16/16 at 12:30 CIELO SANCHEZ MD November 17, 2016 18:12
[2016-11-17] MEDS: morphine 2 MG INJ IV PRN (20:11)
[2016-11-17] MEDS: LATANOPROST 0.005% 2.5 ML OPH BOTH EYES SCH (21:48)
[2016-11-18] VITALS (17 sets, daily range): BP systolic 95–115; BP diastolic 48–59; PULSE 78–92; RESP 16–19
[2016-11-18] MEDS: INSULIN ASPART [NOVOLOG] 3 ML PEN SC SCH ×6 (01:00→22:02)
[2016-11-18] MEDS: LEVALBUTEROL (NEB) 1.25 MG/0.5 ML AMP HHN SCH ×4 (02:25→19:46)
[2016-11-18] MEDS: IPRATROPIUM (NEB) 0.5 MG/2.5 ML AMP HHN SCH ×4 (02:25→19:45)
[2016-11-18] MEDS: CREON (12k-38k-60k) 1 CAP NGT SCH ×4 (05:18→22:00)
[2016-11-18 07:11] LABS: ADD SCAN DIFF NO
[2016-11-18 07:21] LABS: BASOPHILS % 0.3 % (0.0-2.0); EOSINOPHILS # 0.3 10^3/ul (0.0-0.5); EOSINOPHILS % 2.5 % (0.0-7.0); HEMATOCRIT 31.6 % (37.0-47.0); HEMOGLOBIN 9.4 g/dl (12.0-16.0); LYMPHOCYTES # 2.3 10^3/ul (0.8-2.9); LYMPHOCYTES % 17.6 % (15.0-51.0); MEAN CORPUSCULAR HEMOGLOBIN 29.9 pg (29.0-33.0); MEAN CORPUSCULAR HGB CONC 29.7 g/dl (32.0-37.0); MEAN CORPUSCULAR VOLUME 100.6 fl (82.0-101.0); MEAN PLATELET VOLUME 11.1 fl (7.4-10.4); MONOCYTE # 1.2 10^3/ul (0.3-0.9); MONOCYTES % 9.4 % (0.0-11.0); NEUTROPHIL # 9.2 10^3/ul (1.6-7.5); NEUTROPHILS % 69.4 % (39.0-77.0); PLATELET COUNT 213 10^3/UL (140-415); RED BLOOD COUNT 3.14 10^6/ul (4.20-5.40); RED CELL DISTRIBUTION WIDTH 20.2 % (11.5-14.5); WHITE BLOOD COUNT 13.2 10^3/ul (4.8-10.8)
[2016-11-18 07:38] LABS: ALBUMIN 2.5 g/dl (3.3-4.9)
[2016-11-18 07:39] LABS: POTASSIUM 4.3 mmol/L (3.5-5.1)
[2016-11-18 07:41] LABS: ALBUMIN/GLOBULIN RATIO 0.83; CREATININE 2.11 mg/dl (0.44-1.00); TOTAL PROTEIN 5.5 g/dl (6.1-8.1)
[2016-11-18 07:42] LABS: CALCIUM 8.7 mg/dl (8.4-10.2)
[2016-11-18 07:49] LABS: INR 1.29; PROTIME 16.2 Sec (12.2-14.2); PT RATIO 1.3
[2016-11-18] MEDS: INSULIN GLARGINE [LANtus] 3 ML PEN SC SCH (08:21)
--- NOTE | 2016-11-18 08:30 | CONS ---
Date/Time of Note Date/Time of Note DATE: 11/18/16 TIME: 08:24 Assessment/Plan Assessment/Plan Chief Complaint/Hosp Course 1. Acute Renal Failure due to ATN . She is now on maintenance hemodialysis . She still has evidence of volume overload . She had hemodialysis yesterday and 2.5 liters were removed . I will order 2 hours of dry ultrafiltration today and hemodialysis for tomorrow . 2. ALOC , she continues to be very weak and lethargic . she is getting PT . 3. liver enzyme elevation has resolved.. 4. CHF , she continues to have lung congestion and peripheral edema ; however she is having fluid removed with dialysis . 5. hypocalcemia/hypoalbuminemia , calcium is higher 6. anemia , She has no active GI bleeding now. 7. peripheral vascular disease . 8. respiratory failure , pulmonary function has improved . 9 dysphagia , she has a PEG , will have speech re- evaluate . . Problems: Consultation Date/Type/Reason Admit Date/Time Sep 20, 2016 at 19:21 Initial Consult Date 09/23/16 Type of Consultation: Pulm Referring Provider: ZANDRA ROBISON MD, [facility] 24 HR Interval Summary Free Text/Dictation She is sleeping but rouses easily to verbal stimuli . She is lethargic , but responsive . Constitutional: no complaints Exam/Review of Systems Vital Signs Vitals Vital Signs Date Time Temp Pulse Resp B/P Pulse Ox O2 Delivery O2 Flow Rate FiO2 11/18/16 08:16 92 11/18/16 07:19 98.4 18 102/55 98 11/18/16 02:26 Nasal Cannula 2.0 Intake and Output 11/17/16 11/17/16 11/18/16 15:00 23:00 07:00 Intake Total 300 ml 470 ml 680 ml Output Total 2800 ml Balance -2500 ml 470 ml 680 ml Exam Constitutional: alert, frail Neck: supple Respiratory: clear to auscultation, diminished breath sounds Cardiovascular: edema, regular rate and rhythm Gastrointestinal: soft Extremities: edema Results Result Diagram: 11/18/16 0625 11/18/16 0625 Results 24 hrs Laboratory Tests Test 11/17/16 12:09 11/17/16 17:19 11/17/16 21:03 11/18/16 01:34 Bedside Glucose 171 190 121 114 Test 11/18/16 05:13 11/18/16 06:25 11/18/16 08:06 Bedside Glucose 147 190 White Blood Count 13.2 #H Red Blood Count 3.14 L Hemoglobin 9.4 L Hematocrit 31.6 L Mean Corpuscular Volume 100.6 Mean Corpuscular Hemoglobin 29.9 Mean Corpuscular Hemoglobin Concent 29.7 L Red Cell Distribution Width 20.2 H Platelet Count 213 # Mean Platelet Volume 11.1 H Neutrophils % 69.4 Lymphocytes % 17.6 Monocytes % 9.4 Eosinophils % 2.5 Basophils % 0.3 Nucleated Red Blood Cells % 0.0 Neutrophils # 9.2 H Lymphocytes # 2.3 Monocytes # 1.2 H Eosinophils # 0.3 Basophils # 0.0 Nucleated Red Blood Cells # 0.0 Prothrombin Time 16.2 H Prothrombin Time Ratio 1.3 INR International Normalized Ratio 1.29 Sodium Level 138 Potassium Level 4.3 Chloride Level 101 Carbon Dioxide Level 27 Anion Gap 14 Blood Urea Nitrogen 44 #H Creatinine 2.11 H Glucose Level 174 Calcium Level 8.7 Total Bilirubin 0.0 L Direct Bilirubin 0.00 Indirect Bilirubin 0.0 Aspartate Amino Transf (AST/SGOT) 32 Alanine Aminotransferase (ALT/SGPT) 32 Alkaline Phosphatase 175 H Total Protein 5.5 L Albumin 2.5 L Globulin 3.00 Albumin/Globulin Ratio 0.83 Medications Medications Current Medications Acetaminophen (Tylenol Liquid) 650 mg Q4H PRN NGT PAIN AND OR ELEVATED TEMP Last administered on 11/09/16 11:10; Admin Dose 650 MG; Start 09/21/16 at 02:00 Pantoprazole (Protonix Iv) 40 mg AM IV Last administered on 11/17/16 08:04; Admin Dose 40 MG; Start 09/26/16 at 09:00 Epoetin Raj (Epogen (Esrd)) 10,000 units TuThSa@17 SC Last administered on 17:13; Admin Dose 10,000 UNITS; Start 09/26/16 at 17:00 IV Flush (NS 10 ml) 10 ml PRN PRN IV IV PROTOCOL; Start 09/26/16 at 17:30 Calcium Carbonate (Tums) 500 mg TID NGT Last administered on 11/17/16 21:00; Admin Dose 500 MG; Start 10/15/16 at 21:00 Metoprolol Tartrate (Lopressor) 25 mg BID PO Last administered on 11/17/16 21: 51; Admin Dose 25 MG; Start 10/20/16 at 21:00 Lactulose (Enulose) 20 gm BID PRN PO CONSTIPATION Last administered on 12:57; Admin Dose 20 GM; Start 10/23/16 at 10:30 Lactobacillus Acidophilus (Florajen3 Capsule) 1 each TID PO Last administered on 11/17/16 12:26; Admin Dose 1 EACH; Start 10/25/16 at 13:30 Amylase/Lipase/ Protease (CREON ([id number])) 3 cap Q6 NGT Last administered on 11/16/16 18:46; Admin Dose 3 CAP; Start 10/29/16 at 13:00 Latanoprost (Xalatan) 1 drop HS BOTH EYES Last administered on 11/17/16 21:48 ; Admin Dose 1 DROP; Start 10/31/16 at 21:00 Dorzolamide/ Timolol (Cosopt) 1 drop BID BOTH EYES Last administered on 21:48; Admin Dose 1 DROP; Start 10/31/16 at 21:00 Miscellaneous Information 1 ea NOTE XX ; Start 11/03/16 at 18:00 Glucagon (Glucagen) 1 mg Q15M PRN IM DECREASED GLUCOSE; Start 11/03/16 at 18:00 Ondansetron HCl (Zofran Inj) 4 mg Q4H PRN IV NAUSEA AND/OR VOMITING Last administered on 11/17/16 08:19; Admin Dose 4 MG; Start 11/04/16 at 23:00 Eye Lubricant (Artificial Tears Oph) 2 drop QID BOTH EYES Last administered on 11/17/16 21:48; Admin Dose 2 DROP; Start 11/07/16 at 09:00 Sodium Biphosphate/ Sodium Phosphate (Fleet Enema) 133 ml DAILY PRN [place] CONSTIPATION; Start 11/07/16 at 19:00 Metoclopramide HCl (Reglan) 5 mg TID IV Last administered on 11/17/16 21:49; Admin Dose 5 MG; Start 11/09/16 at 13:00 Calcium Carbonate (Tums Ex) 750 mg Q6H PRN PO dyspepsia Last administered on 08:12; Admin Dose 750 MG; Start 11/09/16 at 12:30 Morphine Sulfate (morphine) 1 mg Q3H PRN IV pain Last administered on 20:11; Admin Dose 1 MG; Start 11/10/16 at 08:00 Aspirin (Aspirin) 81 mg DAILY GTB Last administered on 11/17/16 08:04; Admin Dose 81 MG; Start 11/12/16 at 19:00 Miscellaneous Information 1 ea NOTE XX ; Start 11/14/16 at 10:00 Glucose (Glutose) 15 gm Q15M PRN PO DECREASED GLUCOSE; Start 11/14/16 at 10:00 Glucose (Glutose) 22.5 gm Q15M PRN PO DECREASED GLUCOSE; Start 11/14/16 at 10: 00 Dextrose (D50w Syringe) 25 ml Q15M PRN IV DECREASED GLUCOSE; Start 11/14/16 at 10:00 Dextrose (D50w Syringe) 50 ml Q15M PRN IV DECREASED GLUCOSE; Start 11/14/16 at 10:00 Glucose (Glutose) 15 gm Q15M PRN BUCCAL DECREASED GLUCOSE; Start 11/14/16 at 10 :00 Insulin Glargine (Lantus) 22 unit DAILY@08 SC Last administered on 11/17/16 08 :06; Admin Dose 22 UNIT; Start 11/17/16 at 08:00 Escitalopram Oxalate (Lexapro) 10 mg DAILY GTB Last administered on 11/17/16 08:05; Admin Dose 10 MG; Start 11/16/16 at 12:30 Insulin Aspart (Novolog Insulin Pen) NOVOLOG *MODERATE* ALGORI... Q4 SC ; Start 11/18/16 at 09:00 DAMIR MARTINEZ MD November 18, 2016 08:30
[2016-11-18] MEDS: METOCLOPRAMIDE 10 MG INJ IV SCH ×3 (09:56→21:54)
[2016-11-18] MEDS: ASPIRIN 81 MG TAB GTB SCH (09:56)
[2016-11-18] MEDS: ESCITALOPRAM 10 MG TAB GTB SCH (09:57)
[2016-11-18] MEDS: CALCIUM CARBONATE 500 MG CHEW TAB NGT SCH ×3 (09:57→21:54)
[2016-11-18] MEDS: METOPROLOL 25 MG TAB PO SCH ×2 (09:57→21:59)
[2016-11-18] MEDS: PANTOPRAZOLE 40 MG INJ IV SCH (09:57)
[2016-11-18] MEDS: ARTIFICIAL TEARS 15 ML OPH BOTH EYES SCH ×4 (09:58→21:58)
[2016-11-18] MEDS: DORZOLAMIDE/TIMOLOL 10 ML OPH BOTH EYES SCH ×2 (09:58→21:57)
[2016-11-18] MEDS: L ACIDOPHIL/B LACTIS/B LONGUM CAPSULE PO SCH ×3 (10:03→21:54)
--- NOTE | 2016-11-18 11:33 | CONS ---
Date/Time of Note Date/Time of Note DATE: 11/18/16 TIME: 11:31 Assessment/Plan Assessment/Plan Additional Assessment/Plan Assessment recommendations; 1. Patient admitted for GI bleed with stable hematocrit 2. History of recent respiratory failure requiring prolonged mechanical ventilation with excellent overall clinical status. 3. Renal failure, on hemodialysis. 4. Hypertension and diabetes. Continue current treatment. Consultation Date/Type/Reason Admit Date/Time Sep 20, 2016 at 19:21 Initial Consult Date 09/23/16 Type of Consultation: Pulm Referring Provider: ZANDRA ROBISON MD, [facility] 24 HR Interval Summary Free Text/Dictation Patient's condition is stable. Currently getting hemodialysis at bedside. Denies any shortness of breath, chest pain, wheezing, cough or sputum production. General exam; elderly lady, awake alert currently in no distress. Exam/Review of Systems Vital Signs Vitals Vital Signs Date Time Temp Pulse Resp B/P Pulse Ox O2 Delivery O2 Flow Rate FiO2 11/18/16 11:13 98.0 78 18 95/51 98 11/18/16 09:01 2.0 11/18/16 02:26 Nasal Cannula Intake and Output 11/17/16 11/17/16 11/18/16 15:00 23:00 07:00 Intake Total 300 ml 470 ml 680 ml Output Total 2800 ml Balance -2500 ml 470 ml 680 ml Exam HEENT examination; supple neck, no JVD. No lymphadenopathy. Midline trachea. No thyromegaly. No neck masses. Patient has fair dentition. Chest examination; diminished but clear breath sounds. S1-S2 audible, no murmurs. Abdomen examination; no organomegaly. Bowel sounds audible. Nontender. Extremity exam is; there is marked reduction in generalized edema. However multiple ecchymoses are still present in all 4 extremities. [employer] examination; patient has intact cranial nerves, no focal motor deficit, patient however has generalized muscular weakness. Results Result Diagram: 11/18/16 0625 11/18/16 0625 Results 24 hrs Laboratory Tests Test 11/17/16 12:09 11/17/16 17:19 11/17/16 21:03 11/18/16 01:34 Bedside Glucose 171 190 121 114 Test 11/18/16 05:13 11/18/16 06:25 11/18/16 08:06 Bedside Glucose 147 190 White Blood Count 13.2 #H Red Blood Count 3.14 L Hemoglobin 9.4 L Hematocrit 31.6 L Mean Corpuscular Volume 100.6 Mean Corpuscular Hemoglobin 29.9 Mean Corpuscular Hemoglobin Concent 29.7 L Red Cell Distribution Width 20.2 H Platelet Count 213 # Mean Platelet Volume 11.1 H Neutrophils % 69.4 Lymphocytes % 17.6 Monocytes % 9.4 Eosinophils % 2.5 Basophils % 0.3 Nucleated Red Blood Cells % 0.0 Neutrophils # 9.2 H Lymphocytes # 2.3 Monocytes # 1.2 H Eosinophils # 0.3 Basophils # 0.0 Nucleated Red Blood Cells # 0.0 Prothrombin Time 16.2 H Prothrombin Time Ratio 1.3 INR International Normalized Ratio 1.29 Sodium Level 138 Potassium Level 4.3 Chloride Level 101 Carbon Dioxide Level 27 Anion Gap 14 Blood Urea Nitrogen 44 #H Creatinine 2.11 H Glucose Level 174 Calcium Level 8.7 Total Bilirubin 0.0 L Direct Bilirubin 0.00 Indirect Bilirubin 0.0 Aspartate Amino Transf (AST/SGOT) 32 Alanine Aminotransferase (ALT/SGPT) 32 Alkaline Phosphatase 175 H Total Protein 5.5 L Albumin 2.5 L Globulin 3.00 Albumin/Globulin Ratio 0.83 Medications Medications Current Medications Acetaminophen (Tylenol Liquid) 650 mg Q4H PRN NGT PAIN AND OR ELEVATED TEMP Last administered on 11/09/16 11:10; Admin Dose 650 MG; Start 09/21/16 at 02:00 Pantoprazole (Protonix Iv) 40 mg AM IV Last administered on 11/18/16 09:57; Admin Dose 40 MG; Start 09/26/16 at 09:00 Epoetin Raj (Epogen (Esrd)) 10,000 units TuTa@17 SC Last administered on 17:13; Admin Dose 10,000 UNITS; Start 09/26/16 at 17:00 IV Flush (NS 10 ml) 10 ml PRN PRN IV IV PROTOCOL; Start 09/26/16 at 17:30 Calcium Carbonate (Tums) 500 mg TID NGT Last administered on 11/18/16 09:57; Admin Dose 500 MG; Start 10/15/16 at 21:00 Metoprolol Tartrate (Lopressor) 25 mg BID PO Last administered on 11/18/16 09: 57; Admin Dose 25 MG; Start 10/20/16 at 21:00 Lactulose (Enulose) 20 gm BID PRN PO CONSTIPATION Last administered on 12:57; Admin Dose 20 GM; Start 10/23/16 at 10:30 Lactobacillus Acidophilus (Florajen3 Capsule) 1 each TID PO Last administered on 11/18/16 10:03; Admin Dose 1 EACH; Start 10/25/16 at 13:30 Amylase/Lipase/ Protease (CREON (35r-36b-99b)) 3 cap Q6 NGT Last administered on 11/16/16 18:46; Admin Dose 3 CAP; Start 10/29/16 at 13:00 Latanoprost (Xalatan) 1 drop HS BOTH EYES Last administered on 11/17/16 21:48 ; Admin Dose 1 DROP; Start 10/31/16 at 21:00 Dorzolamide/ Timolol (Cosopt) 1 drop BID BOTH EYES Last administered on 09:58; Admin Dose 1 DROP; Start 10/31/16 at 21:00 Miscellaneous Information 1 ea NOTE XX ; Start 11/03/16 at 18:00 Glucagon (Glucagen) 1 mg Q15M PRN IM DECREASED GLUCOSE; Start 11/03/16 at 18:00 Ondansetron HCl (Zofran Inj) 4 mg Q4H PRN IV NAUSEA AND/OR VOMITING Last administered on 11/17/16 08:19; Admin Dose 4 MG; Start 11/04/16 at 23:00 Eye Lubricant (Artificial Tears Oph) 2 drop QID BOTH EYES Last administered on 11/18/16 09:58; Admin Dose 2 DROP; Start 11/07/16 at 09:00 Sodium Biphosphate/ Sodium Phosphate (Fleet Enema) 133 ml DAILY PRN [place] CONSTIPATION; Start 11/07/16 at 19:00 Metoclopramide HCl (Reglan) 5 mg TID IV Last administered on 11/18/16 09:56; Admin Dose 5 MG; Start 11/09/16 at 13:00 Calcium Carbonate (Tums Ex) 750 mg Q6H PRN PO dyspepsia Last administered on 08:12; Admin Dose 750 MG; Start 11/09/16 at 12:30 Morphine Sulfate (morphine) 1 mg Q3H PRN IV pain Last administered on 20:11; Admin Dose 1 MG; Start 11/10/16 at 08:00 Aspirin (Aspirin) 81 mg DAILY GTB Last administered on 11/18/16 09:56; Admin Dose 81 MG; Start 11/12/16 at 19:00 Miscellaneous Information 1 ea NOTE XX ; Start 11/14/16 at 10:00 Glucose (Glutose) 15 gm Q15M PRN PO DECREASED GLUCOSE; Start 11/14/16 at 10:00 Glucose (Glutose) 22.5 gm Q15M PRN PO DECREASED GLUCOSE; Start 11/14/16 at 10: 00 Dextrose (D50w Syringe) 25 ml Q15M PRN IV DECREASED GLUCOSE; Start 11/14/16 at 10:00 Dextrose (D50w Syringe) 50 ml Q15M PRN IV DECREASED GLUCOSE; Start 11/14/16 at 10:00 Glucose (Glutose) 15 gm Q15M PRN BUCCAL DECREASED GLUCOSE; Start 11/14/16 at 10 :00 Insulin Glargine (Lantus) 22 unit DAILY@08 SC Last administered on 11/18/16 08 :21; Admin Dose 22 UNIT; Start 11/17/16 at 08:00 Escitalopram Oxalate (Lexapro) 10 mg DAILY GTB Last administered on 11/18/16 09:57; Admin Dose 10 MG; Start 11/16/16 at 12:30 Insulin Aspart (Novolog Insulin Pen) NOVOLOG *MODERATE* ALGORI... Q4 SC Last administered on 11/18/16 08:22; Admin Dose 4 UNIT; Start 11/18/16 at 09:00 ADIS CAMACHO November 18, 2016 11:33
[2016-11-18] MEDS: CLOPIDOGREL 75 MG TAB GTB SCH (13:20)
[2016-11-18] MEDS: LATANOPROST 0.005% 2.5 ML OPH BOTH EYES SCH (21:58)
[2016-11-19] VITALS (16 sets, daily range): BP systolic 97–133; BP diastolic 41–58; PULSE 75–90; RESP 17–19
[2016-11-19] MEDS: INSULIN ASPART [NOVOLOG] 3 ML PEN SC SCH ×6 (01:00→21:53)
[2016-11-19] MEDS: IPRATROPIUM (NEB) 0.5 MG/2.5 ML AMP HHN SCH ×4 (02:39→19:30)
[2016-11-19] MEDS: LEVALBUTEROL (NEB) 1.25 MG/0.5 ML AMP HHN SCH ×4 (02:39→19:30)
[2016-11-19] MEDS: CREON (12k-38k-60k) 1 CAP NGT SCH ×4 (06:50→18:52)
[2016-11-19] MEDS: INSULIN GLARGINE [LANtus] 3 ML PEN SC SCH (08:11)
--- NOTE | 2016-11-19 09:42 | CONS ---
Date/Time of Note Date/Time of Note DATE: 11/19/16 TIME: 09:37 Assessment/Plan Assessment/Plan Chief Complaint/Hosp Course 1. Acute Renal Failure due to ATN . She is now on maintenance hemodialysis . She still has evidence of volume overload . She had ultrafiltration yesterday and 2 liters were removed . She is going to have hemodialysis today . 2. ALOC , she continues to be very weak and lethargic . she is getting PT . 3. liver enzyme elevation has resolved.. 4. CHF , she continues to have lung congestion and peripheral edema ; however she is having fluid removed with dialysis . 5. hypocalcemia/hypoalbuminemia , calcium is higher 6. anemia , She has no active GI bleeding now. 7. peripheral vascular disease . 8. respiratory failure , pulmonary function has improved . 9 dysphagia , she has a PEG , will have speech re- evaluate . . Problems: Consultation Date/Type/Reason Admit Date/Time Sep 20, 2016 at 19:21 Initial Consult Date 09/23/16 Type of Consultation: renal Referring Provider: ZANDRA ROBISON MD, [facility] 24 HR Interval Summary Free Text/Dictation she is sleeping but rouses easily to verbal stimuli . she denies pain . Constitutional: no complaints Exam/Review of Systems Vital Signs Vitals Vital Signs Date Time Temp Pulse Resp B/P Pulse Ox O2 Delivery O2 Flow Rate FiO2 11/19/16 08:12 85 11/19/16 07:42 16 99 Nasal Cannula 2.0 11/19/16 07:23 98.1 98/41 Intake and Output 11/18/16 11/18/16 11/19/16 15:00 23:00 07:00 Intake Total 300 ml 910 ml 850 ml Output Total 2300 ml Balance -2000 ml 910 ml 850 ml Exam Constitutional: alert, obese, oriented Respiratory: clear to auscultation, diminished breath sounds Cardiovascular: edema, regular rate and rhythm Gastrointestinal: non-tender, soft Extremities: edema Results Result Diagram: 11/18/16 0625 11/18/16 0625 Results 24 hrs Laboratory Tests Test 11/18/16 12:16 11/18/16 13:22 11/18/16 17:06 11/18/16 20:31 Bedside Glucose 170 155 192 173 Test 11/19/16 01:57 11/19/16 08:06 Bedside Glucose 153 229 H Medications Medications Current Medications Acetaminophen (Tylenol Liquid) 650 mg Q4H PRN NGT PAIN AND OR ELEVATED TEMP Last administered on 11/09/16 11:10; Admin Dose 650 MG; Start 09/21/16 at 02:00 Pantoprazole (Protonix Iv) 40 mg AM IV Last administered on 11/18/16 09:57; Admin Dose 40 MG; Start 09/26/16 at 09:00 Epoetin Raj (Epogen (Esrd)) 10,000 units TuThSa@17 SC Last administered on 17:13; Admin Dose 10,000 UNITS; Start 09/26/16 at 17:00 IV Flush (NS 10 ml) 10 ml PRN PRN IV IV PROTOCOL; Start 09/26/16 at 17:30 Calcium Carbonate (Tums) 500 mg TID NGT Last administered on 11/18/16 21:54; Admin Dose 500 MG; Start 10/15/16 at 21:00 Metoprolol Tartrate (Lopressor) 25 mg BID PO Last administered on 11/18/16 21: 59; Admin Dose 25 MG; Start 10/20/16 at 21:00 Lactulose (Enulose) 20 gm BID PRN PO CONSTIPATION Last administered on 12:57; Admin Dose 20 GM; Start 10/23/16 at 10:30 Lactobacillus Acidophilus (Florajen3 Capsule) 1 each TID PO Last administered on 11/18/16 21:54; Admin Dose 1 EACH; Start 10/25/16 at 13:30 Amylase/Lipase/ Protease (CREON (12p-91k-60k)) 3 cap Q6 NGT Last administered on 11/19/16 06:50; Admin Dose 3 CAP; Start 10/29/16 at 13:00 Latanoprost (Xalatan) 1 drop HS BOTH EYES Last administered on 11/18/16 21:58 ; Admin Dose 1 DROP; Start 10/31/16 at 21:00 Dorzolamide/ Timolol (Cosopt) 1 drop BID BOTH EYES Last administered on 21:57; Admin Dose 1 DROP; Start 10/31/16 at 21:00 Miscellaneous Information 1 ea NOTE XX ; Start 11/03/16 at 18:00 Glucagon (Glucagen) 1 mg Q15M PRN IM DECREASED GLUCOSE; Start 11/03/16 at 18:00 Ondansetron HCl (Zofran Inj) 4 mg Q4H PRN IV NAUSEA AND/OR VOMITING Last administered on 11/17/16 08:19; Admin Dose 4 MG; Start 11/04/16 at 23:00 Eye Lubricant (Artificial Tears Oph) 2 drop QID BOTH EYES Last administered on 11/18/16 21:58; Admin Dose 2 DROP; Start 11/07/16 at 09:00 Sodium Biphosphate/ Sodium Phosphate (Fleet Enema) 133 ml DAILY PRN [place] CONSTIPATION; Start 11/07/16 at 19:00 Metoclopramide HCl (Reglan) 5 mg TID IV Last administered on 11/18/16 21:54; Admin Dose 5 MG; Start 11/09/16 at 13:00 Calcium Carbonate (Tums Ex) 750 mg Q6H PRN PO dyspepsia Last administered on 08:12; Admin Dose 750 MG; Start 11/09/16 at 12:30 Morphine Sulfate (morphine) 1 mg Q3H PRN IV pain Last administered on 20:11; Admin Dose 1 MG; Start 11/10/16 at 08:00 Aspirin (Aspirin) 81 mg DAILY GTB Last administered on 11/18/16 09:56; Admin Dose 81 MG; Start 11/12/16 at 19:00 Miscellaneous Information 1 ea NOTE XX ; Start 11/14/16 at 10:00 Glucose (Glutose) 15 gm Q15M PRN PO DECREASED GLUCOSE; Start 11/14/16 at 10:00 Glucose (Glutose) 22.5 gm Q15M PRN PO DECREASED GLUCOSE; Start 11/14/16 at 10: 00 Dextrose (D50w Syringe) 25 ml Q15M PRN IV DECREASED GLUCOSE; Start 11/14/16 at 10:00 Dextrose (D50w Syringe) 50 ml Q15M PRN IV DECREASED GLUCOSE; Start 11/14/16 at 10:00 Glucose (Glutose) 15 gm Q15M PRN BUCCAL DECREASED GLUCOSE; Start 11/14/16 at 10 :00 Insulin Glargine (Lantus) 22 unit DAILY@08 SC Last administered on 11/19/16 08 :11; Admin Dose 22 UNIT; Start 11/17/16 at 08:00 Escitalopram Oxalate (Lexapro) 10 mg DAILY GTB Last administered on 11/18/16 09:57; Admin Dose 10 MG; Start 11/16/16 at 12:30 Insulin Aspart (Novolog Insulin Pen) NOVOLOG *MODERATE* ALGORI... Q4 SC Last administered on 11/19/16 08:11; Admin Dose 6 UNIT; Start 11/18/16 at 09:00 Clopidogrel Bisulfate (plaVIX) 75 mg DAILY GTB Last administered on 11/18/16 13:20; Admin Dose 75 MG; Start 11/18/16 at 13:00 DAMIR MARTINEZ MD November 19, 2016 09:41
--- NOTE | 2016-11-19 11:56 | CONS ---
Date/Time of Note Date/Time of Note DATE: 11/19/16 TIME: 11:54 Assessment/Plan Assessment/Plan Additional Assessment/Plan Assessment recommendations; 1. Patient admitted for anemia with no obvious source being localized. With negative EGD and suboptimal colonoscopy due to poor bowel prep. However no active bleeding seen. 2. Diabetes and hypertension. 3. Generalized muscular weakness. 4. End-stage renal disease, on hemodialysis. 5. Status post recent respiratory failure with prolonged stay in the hospital due to severe bilateral pneumonia. Patient doing very well from that standpoint. Continue current treatment. Patient can be transferred to a rehab center. Consultation Date/Type/Reason Admit Date/Time Sep 20, 2016 at 19:21 Initial Consult Date 09/23/16 Type of Consultation: Pulmonary Referring Provider: ZANDRA ROBISON MD, [facility] HR Interval Summary Free Text/Dictation Patient condition stable. Denies any shortness of breath, chest pain, wheezing. Denies any sputum production. General exam; elderly lady, awake alert currently in no distress. Exam/Review of Systems Vital Signs Vitals Vital Signs Date Time Temp Pulse Resp B/P Pulse Ox O2 Delivery O2 Flow Rate FiO2 11/19/16 11:20 98.2 89 19 103/53 95 11/19/16 07:42 Nasal Cannula 2.0 Intake and Output 11/18/16 11/18/16 11/19/16 15:00 23:00 07:00 Intake Total 300 ml 910 ml 850 ml Output Total 2300 ml Balance -2000 ml 910 ml 850 ml Exam HEENT exam is; supple neck, no JVD. No lymphadenopathy. Midline trachea. No thyromegaly. Pharynx is clear. Pupils are small bilaterally. Next Chest examination; clear to auscultation. S1-S2 audible, no murmurs. Abdomen examination; soft, nontender. No organomegaly. Bowel sounds audible. Extremity examination; there is marked reduction in generalized anasarca. Multiple ecchymoses are still present in all 4 extremities. MANAGER TRANSITION examination; there is no obvious focal motor deficit, but the patient still has significant generalized muscular weakness. Results Result Diagram: 11/18/16 0625 11/18/16 0625 Results 24 hrs Laboratory Tests Test 11/18/16 12:16 11/18/16 13:22 11/18/16 17:06 11/18/16 20:31 Bedside Glucose 170 155 192 173 Test 11/19/16 01:57 11/19/16 08:06 Bedside Glucose 153 229 H Medications Medications Current Medications Acetaminophen (Tylenol Liquid) 650 mg Q4H PRN NGT PAIN AND OR ELEVATED TEMP Last administered on 11/09/16 11:10; Admin Dose 650 MG; Start 09/21/16 at 02:00 Pantoprazole (Protonix Iv) 40 mg AM IV Last administered on 11/18/16 09:57; Admin Dose 40 MG; Start 09/26/16 at 09:00 Epoetin Raj (Epogen (Esrd)) 10,000 units TuThSa@17 SC Last administered on 17:13; Admin Dose 10,000 UNITS; Start 09/26/16 at 17:00 IV Flush (NS 10 ml) 10 ml PRN PRN IV IV PROTOCOL; Start 09/26/16 at 17:30 Calcium Carbonate (Tums) 500 mg TID NGT Last administered on 11/18/16 21:54; Admin Dose 500 MG; Start 10/15/16 at 21:00 Metoprolol Tartrate (Lopressor) 25 mg BID PO Last administered on 11/18/16 21: 59; Admin Dose 25 MG; Start 10/20/16 at 21:00 Lactulose (Enulose) 20 gm BID PRN PO CONSTIPATION Last administered on 12:57; Admin Dose 20 GM; Start 10/23/16 at 10:30 Lactobacillus Acidophilus (Florajen3 Capsule) 1 each TID PO Last administered on 11/18/16 21:54; Admin Dose 1 EACH; Start 10/25/16 at 13:30 Amylase/Lipase/ Protease (CREON (12k-22k-60k)) 3 cap Q6 NGT Last administered on 11/19/16 06:50; Admin Dose 3 CAP; Start 10/29/16 at 13:00 Latanoprost (Xalatan) 1 drop HS BOTH EYES Last administered on 11/18/16 21:58 ; Admin Dose 1 DROP; Start 10/31/16 at 21:00 Dorzolamide/ Timolol (Cosopt) 1 drop BID BOTH EYES Last administered on 21:57; Admin Dose 1 DROP; Start 10/31/16 at 21:00 Miscellaneous Information 1 ea NOTE XX ; Start 11/03/16 at 18:00 Glucagon (Glucagen) 1 mg Q15M PRN IM DECREASED GLUCOSE; Start 11/03/16 at 18:00 Ondansetron HCl (Zofran Inj) 4 mg Q4H PRN IV NAUSEA AND/OR VOMITING Last administered on 11/17/16 08:19; Admin Dose 4 MG; Start 11/04/16 at 23:00 Eye Lubricant (Artificial Tears Oph) 2 drop QID BOTH EYES Last administered on 11/18/16 21:58; Admin Dose 2 DROP; Start 11/07/16 at 09:00 Sodium Biphosphate/ Sodium Phosphate (Fleet Enema) 133 ml DAILY PRN [place] CONSTIPATION; Start 11/07/16 at 19:00 Metoclopramide HCl (Reglan) 5 mg TID IV Last administered on 11/18/16 21:54; Admin Dose 5 MG; Start 11/09/16 at 13:00 Calcium Carbonate (Tums Ex) 750 mg Q6H PRN PO dyspepsia Last administered on 08:12; Admin Dose 750 MG; Start 11/09/16 at 12:30 Morphine Sulfate (morphine) 1 mg Q3H PRN IV pain Last administered on 20:11; Admin Dose 1 MG; Start 11/10/16 at 08:00 Aspirin (Aspirin) 81 mg DAILY GTB Last administered on 11/18/16 09:56; Admin Dose 81 MG; Start 11/12/16 at 19:00 Miscellaneous Information 1 ea NOTE XX ; Start 11/14/16 at 10:00 Glucose (Glutose) 15 gm Q15M PRN PO DECREASED GLUCOSE; Start 11/14/16 at 10:00 Glucose (Glutose) 22.5 gm Q15M PRN PO DECREASED GLUCOSE; Start 11/14/16 at 10: 00 Dextrose (D50w Syringe) 25 ml Q15M PRN IV DECREASED GLUCOSE; Start 11/14/16 at 10:00 Dextrose (D50w Syringe) 50 ml Q15M PRN IV DECREASED GLUCOSE; Start 11/14/16 at 10:00 Glucose (Glutose) 15 gm Q15M PRN BUCCAL DECREASED GLUCOSE; Start 11/14/16 at 10 :00 Insulin Glargine (Lantus) 22 unit DAILY@08 SC Last administered on 11/19/16 08 :11; Admin Dose 22 UNIT; Start 11/17/16 at 08:00 Escitalopram Oxalate (Lexapro) 10 mg DAILY GTB Last administered on 11/18/16 09:57; Admin Dose 10 MG; Start 11/16/16 at 12:30 Insulin Aspart (Novolog Insulin Pen) NOVOLOG *MODERATE* ALGORI... Q4 SC Last administered on 11/19/16 08:11; Admin Dose 6 UNIT; Start 11/18/16 at 09:00 Clopidogrel Bisulfate (plaVIX) 75 mg DAILY GTB Last administered on 11/18/16 13:20; Admin Dose 75 MG; Start 11/18/16 at 13:00 ADIS CAMACHO November 19, 2016 11:56
[2016-11-19] MEDS: METOCLOPRAMIDE 10 MG INJ IV SCH ×3 (12:27→21:26)
[2016-11-19] MEDS: PANTOPRAZOLE 40 MG INJ IV SCH (12:27)
[2016-11-19] MEDS: L ACIDOPHIL/B LACTIS/B LONGUM CAPSULE PO SCH ×3 (12:27→21:26)
[2016-11-19] MEDS: CLOPIDOGREL 75 MG TAB GTB SCH (12:28)
[2016-11-19] MEDS: CALCIUM CARBONATE 500 MG CHEW TAB NGT SCH ×3 (12:28→21:26)
[2016-11-19] MEDS: METOPROLOL 25 MG TAB PO SCH ×2 (12:28→22:49)
[2016-11-19] MEDS: ASPIRIN 81 MG TAB GTB SCH (12:28)
[2016-11-19] MEDS: ESCITALOPRAM 10 MG TAB GTB SCH (12:28)
[2016-11-19] MEDS: ARTIFICIAL TEARS 15 ML OPH BOTH EYES SCH ×4 (12:29→21:25)
[2016-11-19] MEDS: DORZOLAMIDE/TIMOLOL 10 ML OPH BOTH EYES SCH ×2 (12:29→21:25)
--- NOTE | 2016-11-19 13:36 | CONS ---
DATE OF ADMISSION: 09/20/2016 DATE OF CONSULTATION: TYPE OF CONSULTATION: Gastroenterology. HISTORY OF PRESENT ILLNESS: The patient has no complaints but she did have abdominal pain yesterday . KUB was done which showed minimal dilatation of the stomach; however, she is tolerating the tube feeding now okay. No active bleeding at this time. PHYSICAL EXAMINATION: VITAL SIGNS: Blood pressure is 103/53, temperature 98.2, pulse is 89. CARDIOVASCULAR: Normal heart sounds. RESPIRATORY: Normal breath sounds. ABDOMEN: Shows soft abdomen with no palpable masses. Minimal fullness noted but no tenderness. LABORATORY WORKUP: WBC count is 13,200, the platelet count is 213,000. BUN is 44, creatinine 2.11, AST 32, ALT 32, alkaline phosphatase 175. CLINICAL IMPRESSION: 1. From the GI standpoint, the GI bleeding is under control. She has a gastric ulcer. 2. From the abdominal pain standpoint, she has a minimally dilated stomach, but she is tolerating t he tube feeding. PLAN: At this time, continue the present management and will watch the patient closely. Dictated By: CIELO COWAN/JERROD Conf#: [id number] DID#: [id number] CC: SHAMA LOPEZ MD;*End*
--- NOTE | 2016-11-19 14:55 | PN ---
Date/Time of Note Date/Time of Note DATE: 11/19/16 TIME: 14:50 Assessment/Plan VTE Prophylaxis VTE Prophylaxis Intervention: other (asa) Lines/Catheters IV Catheter Type (from Nrsg): PICC Line Central line still needed: No Urinary Cath still in place: No Assessment/Plan Assessment/Plan 1. cad/ htn/ pad/ needing anticoag 2. rld/ weak coughs/ with effusion 3. arf/ edema/ anemia--prn dialysis 4. dm 5. s/p gi bleed--resolving 6. weak musc strenth/ peg feed dep ---stay in tele bed ---per cards ---per pulm ---per renal ---inc pt/ot exercises ---all supportive cares Subjective 24 Hr Interval Summary Free Text/Dictation want to eat, and move more Exam/Review of Systems Vital Signs Vitals Vital Signs Date Time Temp Pulse Resp B/P Pulse Ox O2 Delivery O2 Flow Rate FiO2 11/19/16 13:50 74 16 99 Nasal Cannula 2.0 11/19/16 11:20 98.2 103/53 Intake and Output 11/18/16 11/18/16 11/19/16 15:00 23:00 07:00 Intake Total 300 ml 910 ml 850 ml Output Total 2300 ml Balance -2000 ml 910 ml 850 ml Exam in bed, obese, toes blue black+ less edema dec bs, still w/ wet congested coughs, stronger coughs rr diast m+ Results Result Diagram: 11/18/16 0625 11/18/16 0625 Results 24 hrs Laboratory Tests Test 11/18/16 17:06 11/18/16 20:31 11/19/16 01:57 11/19/16 08:06 Bedside Glucose 192 173 153 229 H Test 11/19/16 12:00 Bedside Glucose 184 Medications Medications Current Medications Acetaminophen (Tylenol Liquid) 650 mg Q4H PRN NGT PAIN AND OR ELEVATED TEMP Last administered on 11/09/16 11:10; Admin Dose 650 MG; Start 09/21/16 at 02:00 Pantoprazole (Protonix Iv) 40 mg AM IV Last administered on 11/19/16 12:27; Admin Dose 40 MG; Start 09/26/16 at 09:00 Epoetin Raj (Epogen (Esrd)) 10,000 units TuTa@17 SC Last administered on 17:13; Admin Dose 10,000 UNITS; Start 09/26/16 at 17:00 IV Flush (NS 10 ml) 10 ml PRN PRN IV IV PROTOCOL; Start 09/26/16 at 17:30 Calcium Carbonate (Tums) 500 mg TID NGT Last administered on 11/19/16 12:28; Admin Dose 500 MG; Start 10/15/16 at 21:00 Metoprolol Tartrate (Lopressor) 25 mg BID PO Last administered on 11/19/16 12: 28; Admin Dose 25 MG; Start 10/20/16 at 21:00 Lactulose (Enulose) 20 gm BID PRN PO CONSTIPATION Last administered on 12:57; Admin Dose 20 GM; Start 10/23/16 at 10:30 Lactobacillus Acidophilus (Florajen3 Capsule) 1 each TID PO Last administered on 11/19/16 12:27; Admin Dose 1 EACH; Start 10/25/16 at 13:30 Amylase/Lipase/ Protease (CREON (07u-17g-52k)) 3 cap Q6 NGT Last administered on 11/19/16 12:31; Admin Dose 3 CAP; Start 10/29/16 at 13:00 Latanoprost (Xalatan) 1 drop HS BOTH EYES Last administered on 11/18/16 21:58 ; Admin Dose 1 DROP; Start 10/31/16 at 21:00 Dorzolamide/ Timolol (Cosopt) 1 drop BID BOTH EYES Last administered on 12:29; Admin Dose 1 DROP; Start 10/31/16 at 21:00 Miscellaneous Information 1 ea NOTE XX ; Start 11/03/16 at 18:00 Glucagon (Glucagen) 1 mg Q15M PRN IM DECREASED GLUCOSE; Start 11/03/16 at 18:00 Ondansetron HCl (Zofran Inj) 4 mg Q4H PRN IV NAUSEA AND/OR VOMITING Last administered on 11/17/16 08:19; Admin Dose 4 MG; Start 11/04/16 at 23:00 Eye Lubricant (Artificial Tears Oph) 2 drop QID BOTH EYES Last administered on 11/19/16 12:29; Admin Dose 2 DROP; Start 11/07/16 at 09:00 Sodium Biphosphate/ Sodium Phosphate (Fleet Enema) 133 ml DAILY PRN [place] CONSTIPATION; Start 11/07/16 at 19:00 Metoclopramide HCl (Reglan) 5 mg TID IV Last administered on 11/19/16 12:27; Admin Dose 5 MG; Start 11/09/16 at 13:00 Calcium Carbonate (Tums Ex) 750 mg Q6H PRN PO dyspepsia Last administered on 08:12; Admin Dose 750 MG; Start 11/09/16 at 12:30 Morphine Sulfate (morphine) 1 mg Q3H PRN IV pain Last administered on 20:11; Admin Dose 1 MG; Start 11/10/16 at 08:00 Aspirin (Aspirin) 81 mg DAILY GTB Last administered on 11/19/16 12:28; Admin Dose 81 MG; Start 11/12/16 at 19:00 Miscellaneous Information 1 ea NOTE XX ; Start 11/14/16 at 10:00 Glucose (Glutose) 15 gm Q15M PRN PO DECREASED GLUCOSE; Start 11/14/16 at 10:00 Glucose (Glutose) 22.5 gm Q15M PRN PO DECREASED GLUCOSE; Start 11/14/16 at 10: 00 Dextrose (D50w Syringe) 25 ml Q15M PRN IV DECREASED GLUCOSE; Start 11/14/16 at 10:00 Dextrose (D50w Syringe) 50 ml Q15M PRN IV DECREASED GLUCOSE; Start 11/14/16 at 10:00 Glucose (Glutose) 15 gm Q15M PRN BUCCAL DECREASED GLUCOSE; Start 11/14/16 at 10 :00 Insulin Glargine (Lantus) 22 unit DAILY@08 SC Last administered on 11/19/16 08 :11; Admin Dose 22 UNIT; Start 11/17/16 at 08:00 Escitalopram Oxalate (Lexapro) 10 mg DAILY GTB Last administered on 11/19/16 12:28; Admin Dose 10 MG; Start 11/16/16 at 12:30 Insulin Aspart (Novolog Insulin Pen) NOVOLOG *MODERATE* ALGORI... Q4 SC Last administered on 11/19/16 12:26; Admin Dose 4 UNIT; Start 11/18/16 at 09:00 Clopidogrel Bisulfate (plaVIX) 75 mg DAILY GTB Last administered on 11/19/16t 12:28; Admin Dose 75 MG; Start 11/18/16 at 13:00 SHAMA LOPEZ MD November 19, 2016 14:55
--- NOTE | 2016-11-19 15:07 | PN ---
Date/Time of Note Date/Time of Note DATE: 11/18/16 TIME: 10:59 Assessment/Plan VTE Prophylaxis VTE Prophylaxis Intervention: other (asa) Lines/Catheters IV Catheter Type (from Nrsg): PICC Line Central line still needed: No Urinary Cath still in place: No Assessment/Plan Assessment/Plan 1. cad/ pad/ htn/ needing anticoag 2. rld/ wet coughs--less mucus 3. arf/ edema/ anemia--prn dialysis 4. dm 5. musc weak/ peg feed dep 6. depression ---per cards ---per pulm ---per renal ---inc lantus dose ---await swallow eval ---cont all supportive cares inc more aggressive pt/ot exercises Subjective 24 Hr Interval Summary Free Text/Dictation want to eat SHAMA LOPEZ MD November 19, 2016 15:07
[2016-11-19] MEDS: EPOETIN 10000 UNITS/1 ML INJ (ESRD) SC SCH (17:02)
[2016-11-19] MEDS: LATANOPROST 0.005% 2.5 ML OPH BOTH EYES SCH (21:25)
[2016-11-20] VITALS (12 sets, daily range): BP systolic 88–103; BP diastolic 43–56; PULSE 74–82; RESP 16–18
[2016-11-20] MEDS: INSULIN ASPART [NOVOLOG] 3 ML PEN SC SCH ×6 (01:00→21:22)
[2016-11-20] MEDS: CREON (12k-38k-60k) 1 CAP NGT SCH ×5 (01:49→23:08)
[2016-11-20] MEDS: IPRATROPIUM (NEB) 0.5 MG/2.5 ML AMP HHN SCH ×4 (02:08→20:00)
[2016-11-20] MEDS: LEVALBUTEROL (NEB) 1.25 MG/0.5 ML AMP HHN SCH ×4 (02:08→20:00)
[2016-11-20 07:31] LABS: ADD SCAN DIFF NO
--- NOTE | 2016-11-20 07:40 | RADRPT ---
PROCEDURE: Chest 1 views. CLINICAL INDICATION: Shortness of breath. TECHNIQUE: AP views of the chest was obtained. COMPARISON: October 16, 2016 FINDINGS: The heart is large. Right-sided dialysis catheter is stable. Left-sided PICC line is unchanged. Ce ntral pulmonary vascular congestion and interstitial prominence continues to be seen in both lungs. Right mid and lower lung infiltrates combined small to moderate pleural effusion are stable. Left lower lobe infiltrates and small left pleural effusion have increased. Osseous structures are intac t. IMPRESSION: Cardiomegaly . Central pulmonary vascular congestion and interstitial prominence in both lungs. Interval increase in left lower lobe infiltrates combined with small pleural effusion. Stable right mid and lower lung infiltrates, combined with small to moderate pleural effusion. RPTAT: AA .Ovidio Otoole MD, Date Time Electronically viewed and signed by .Ovidio Otoole MD, on 11/20/2016 07:40 .P/
[2016-11-20 07:42] LABS: BASOPHILS % 0.3 % (0.0-2.0); EOSINOPHILS # 0.4 10^3/ul (0.0-0.5); EOSINOPHILS % 3.7 % (0.0-7.0); HEMATOCRIT 30.2 % (37.0-47.0); HEMOGLOBIN 8.9 g/dl (12.0-16.0); LYMPHOCYTES # 2.8 10^3/ul (0.8-2.9); LYMPHOCYTES % 27.8 % (15.0-51.0); MEAN CORPUSCULAR HEMOGLOBIN 29.6 pg (29.0-33.0); MEAN CORPUSCULAR HGB CONC 29.5 g/dl (32.0-37.0); MEAN CORPUSCULAR VOLUME 100.3 fl (82.0-101.0); MEAN PLATELET VOLUME 11.1 fl (7.4-10.4); MONOCYTE # 1.3 10^3/ul (0.3-0.9); MONOCYTES % 12.6 % (0.0-11.0); NEUTROPHIL # 5.6 10^3/ul (1.6-7.5); NEUTROPHILS % 54.3 % (39.0-77.0); NUCLEATED RED BLOOD CELLS% 0.2 /100WBC (0.0-0.0); PLATELET COUNT 247 10^3/UL (140-415); RED BLOOD COUNT 3.01 10^6/ul (4.20-5.40); RED CELL DISTRIBUTION WIDTH 19.1 % (11.5-14.5); WHITE BLOOD COUNT 10.2 10^3/ul (4.8-10.8)
[2016-11-20 07:47] LABS: INR 1.02; PROTIME 13.4 Sec (12.2-14.2)
[2016-11-20 07:52] LABS: ALBUMIN 2.6 g/dl (3.3-4.9); ALBUMIN/GLOBULIN RATIO 0.83; CALCIUM 8.4 mg/dl (8.4-10.2); CREATININE 2.28 mg/dl (0.44-1.00); POTASSIUM 5.1 mmol/L (3.5-5.1); TOTAL PROTEIN 5.7 g/dl (6.1-8.1)
[2016-11-20] MEDS: INSULIN GLARGINE [LANtus] 3 ML PEN SC SCH (09:01)
[2016-11-20] MEDS: ARTIFICIAL TEARS 15 ML OPH BOTH EYES SCH ×4 (09:05→21:20)
[2016-11-20] MEDS: L ACIDOPHIL/B LACTIS/B LONGUM CAPSULE PO SCH ×3 (09:06→21:19)
[2016-11-20] MEDS: METOCLOPRAMIDE 10 MG INJ IV SCH ×3 (09:06→21:20)
[2016-11-20] MEDS: ASPIRIN 81 MG TAB GTB SCH (09:06)
[2016-11-20] MEDS: DORZOLAMIDE/TIMOLOL 10 ML OPH BOTH EYES SCH ×2 (09:06→21:20)
[2016-11-20] MEDS: ESCITALOPRAM 10 MG TAB GTB SCH (09:07)
[2016-11-20] MEDS: CLOPIDOGREL 75 MG TAB GTB SCH (09:07)
[2016-11-20] MEDS: CALCIUM CARBONATE 500 MG CHEW TAB NGT SCH ×3 (09:07→21:19)
[2016-11-20] MEDS: PANTOPRAZOLE 40 MG INJ IV SCH (09:08)
[2016-11-20] MEDS: METOPROLOL 25 MG TAB PO SCH ×2 (09:08→21:19)
--- NOTE | 2016-11-20 10:47 | PN ---
Date/Time of Note Date/Time of Note DATE: 11/20/16 TIME: 10:41 Assessment/Plan VTE Prophylaxis VTE Prophylaxis Intervention: other (asa) Lines/Catheters IV Catheter Type (from Nrsg): PICC Line Central line still needed: No Urinary Cath still in place: No Assessment/Plan Assessment/Plan 1. cad/ htn/ pad/ needing anticoag 2. pulm effusion/ thoracentesis prn/ motion exacerbated sob 3. s/p gi bleed w/ aggressive anticoag 4. dm 5. arf/ anemia--prn dialysis 6. musc weak/ peg feed dep/ low calc/ low na 7. depression ---per cards ---per pulm ---per renal ---await video swallow study ---must inc pt/ot exercises ---add pinch salt to diet Subjective 24 Hr Interval Summary Free Text/Dictation awake, more verbal, more vol to voice Exam/Review of Systems Vital Signs Vitals Vital Signs Date Time Temp Pulse Resp B/P Pulse Ox O2 Delivery O2 Flow Rate FiO2 11/20/16 08:07 98 2.0 11/20/16 08:07 82 16 Nasal Cannula 11/20/16 07:12 97.9 103/56 Intake and Output 11/19/16 11/19/16 11/20/16 15:00 23:00 07:00 Intake Total 300 ml 1220 ml 350 ml Output Total 3000 ml Balance -2700 ml 1220 ml 350 ml Exam in bed, obese, toes blue black less edema dec bs, still w/ throat mucus collect, weak coughs rr Results Result Diagram: 11/20/16 0635 11/20/16 0635 Results 24 hrs Laboratory Tests Test 11/19/16 12:00 11/19/16 17:11 11/19/16 20:22 11/20/16 01:48 Bedside Glucose 184 243 H 214 141 Test 11/20/16 05:51 11/20/16 06:35 11/20/16 08:59 Bedside Glucose 140 200 White Blood Count 10.2 # Red Blood Count 3.01 L Hemoglobin 8.9 L Hematocrit 30.2 L Mean Corpuscular Volume 100.3 Mean Corpuscular Hemoglobin 29.6 Mean Corpuscular Hemoglobin Concent 29.5 L Red Cell Distribution Width 19.1 H Platelet Count 247 Mean Platelet Volume 11.1 H Neutrophils % 54.3 Lymphocytes % 27.8 Monocytes % 12.6 H Eosinophils % 3.7 Basophils % 0.3 Nucleated Red Blood Cells % 0.2 H Neutrophils # 5.6 Lymphocytes # 2.8 Monocytes # 1.3 H Eosinophils # 0.4 Basophils # 0.0 Nucleated Red Blood Cells # 0.0 Prothrombin Time 13.4 Prothrombin Time Ratio 1.0 INR International Normalized Ratio 1.02 Sodium Level 131 L Potassium Level 5.1 Chloride Level 98 Carbon Dioxide Level 27 Anion Gap 11 Blood Urea Nitrogen 49 H Creatinine 2.28 H Glucose Level 140 Calcium Level 8.4 Total Bilirubin 0.0 L Direct Bilirubin 0.00 Indirect Bilirubin 0.0 Aspartate Amino Transf (AST/SGOT) 38 Alanine Aminotransferase (ALT/SGPT) 34 Alkaline Phosphatase 155 H Total Protein 5.7 L Albumin 2.6 L Globulin 3.10 Albumin/Globulin Ratio 0.83 Medications Medications Current Medications Acetaminophen (Tylenol Liquid) 650 mg Q4H PRN NGT PAIN AND OR ELEVATED TEMP Last administered on 11/09/16 11:10; Admin Dose 650 MG; Start 09/21/16 at 02:00 Pantoprazole (Protonix Iv) 40 mg AM IV Last administered on 11/20/16 09:08; Admin Dose 40 MG; Start 09/26/16 at 09:00 Epoetin Raj (Epogen (Esrd)) 10,000 units TuThSa@17 SC Last administered on 17:02; Admin Dose 10,000 UNITS; Start 09/26/16 at 17:00 IV Flush (NS 10 ml) 10 ml PRN PRN IV IV PROTOCOL; Start 09/26/16 at 17:30 Calcium Carbonate (Tums) 500 mg TID NGT Last administered on 11/20/16 09:07; Admin Dose 500 MG; Start 10/15/16 at 21:00 Metoprolol Tartrate (Lopressor) 25 mg BID PO Last administered on 11/20/16 09: 08; Admin Dose 25 MG; Start 10/20/16 at 21:00 Lactulose (Enulose) 20 gm BID PRN PO CONSTIPATION Last administered on 12:57; Admin Dose 20 GM; Start 10/23/16 at 10:30 Lactobacillus Acidophilus (Florajen3 Capsule) 1 each TID PO Last administered on 11/20/16 09:06; Admin Dose 1 EACH; Start 10/25/16 at 13:30 Amylase/Lipase/ Protease (CREON (12g-10j-49d)) 3 cap Q6 NGT Last administered on 11/20/16 05:54; Admin Dose 3 CAP; Start 10/29/16 at 13:00 Latanoprost (Xalatan) 1 drop HS BOTH EYES Last administered on 11/19/16 21:25 ; Admin Dose 1 DROP; Start 10/31/16 at 21:00 Dorzolamide/ Timolol (Cosopt) 1 drop BID BOTH EYES Last administered on 09:06; Admin Dose 1 DROP; Start 10/31/16 at 21:00 Miscellaneous Information 1 ea NOTE XX ; Start 11/03/16 at 18:00 Glucagon (Glucagen) 1 mg Q15M PRN IM DECREASED GLUCOSE; Start 11/03/16 at 18:00 Ondansetron HCl (Zofran Inj) 4 mg Q4H PRN IV NAUSEA AND/OR VOMITING Last administered on 11/17/16 08:19; Admin Dose 4 MG; Start 11/04/16 at 23:00 Eye Lubricant (Artificial Tears Oph) 2 drop QID BOTH EYES Last administered on 11/20/16 09:05; Admin Dose 2 DROP; Start 11/07/16 at 09:00 Sodium Biphosphate/ Sodium Phosphate (Fleet Enema) 133 ml DAILY PRN [place] CONSTIPATION; Start 11/07/16 at 19:00 Metoclopramide HCl (Reglan) 5 mg TID IV Last administered on 11/20/16 09:06; Admin Dose 5 MG; Start 11/09/16 at 13:00 Calcium Carbonate (Tums Ex) 750 mg Q6H PRN PO dyspepsia Last administered on 08:12; Admin Dose 750 MG; Start 11/09/16 at 12:30 Morphine Sulfate (morphine) 1 mg Q3H PRN IV pain Last administered on 20:11; Admin Dose 1 MG; Start 11/10/16 at 08:00 Aspirin (Aspirin) 81 mg DAILY GTB Last administered on 11/20/16 09:06; Admin Dose 81 MG; Start 11/12/16 at 19:00 Miscellaneous Information 1 ea NOTE XX ; Start 11/14/16 at 10:00 Glucose (Glutose) 15 gm Q15M PRN PO DECREASED GLUCOSE; Start 11/14/16 at 10:00 Glucose (Glutose) 22.5 gm Q15M PRN PO DECREASED GLUCOSE; Start 11/14/16 at 10: 00 Dextrose (D50w Syringe) 25 ml Q15M PRN IV DECREASED GLUCOSE; Start 11/14/16 at 10:00 Dextrose (D50w Syringe) 50 ml Q15M PRN IV DECREASED GLUCOSE; Start 11/14/16 at 10:00 Glucose (Glutose) 15 gm Q15M PRN BUCCAL DECREASED GLUCOSE; Start 11/14/16 at 10 :00 Insulin Glargine (Lantus) 22 unit DAILY@08 SC Last administered on 11/20/16 09 :01; Admin Dose 22 UNIT; Start 11/17/16 at 08:00 Escitalopram Oxalate (Lexapro) 10 mg DAILY GTB Last administered on 11/20/16 09:07; Admin Dose 10 MG; Start 11/16/16 at 12:30 Insulin Aspart (Novolog Insulin Pen) NOVOLOG *MODERATE* ALGORI... Q4 SC Last administered on 11/20/16 09:25; Admin Dose 4 UNIT; Start 11/18/16 at 09:00 Clopidogrel Bisulfate (plaVIX) 75 mg DAILY GTB Last administered on 11/20/16 09:07; Admin Dose 75 MG; Start 11/18/16 at 13:00 SHAMA LOPEZ MD November 20, 2016 10:47
--- NOTE | 2016-11-20 13:07 | CONS ---
Date/Time of Note Date/Time of Note DATE: 11/20/16 TIME: 13:05 Assessment/Plan Assessment/Plan Additional Assessment/Plan Assessment recommendations; 1. Patient admitted for GI bleed without any source been discovered with stable hematocrit. 2. End-stage renal disease, on dialysis. 3. Recent episode of respiratory failure requiring prolonged mechanical ventilation due to bilateral pneumonia with marked improvement. 4. History of diabetes, hypertension and hypo-thyroidism. 5. Generalized muscular weakness, with interval improvement. Continue current treatment. Consultation Date/Type/Reason Admit Date/Time Sep 20, 2016 at 19:21 Initial Consult Date 09/23/16 Type of Consultation: Pulmonary Referring Provider: ZANDRA ROBISON MD[facility] Interval Summary Free Text/Dictation Patient doing very well. He is completely awake alert. According to her weakness is improving. Patient has been out of bed. General exam; elderly lady, awake alert currently in no distress. Exam/Review of Systems Vital Signs Vitals Vital Signs Date Time Temp Pulse Resp B/P Pulse Ox O2 Delivery O2 Flow Rate FiO2 11/20/16 12:20 74 11/20/16 11:39 98.0 18 97/50 100 11/20/16 08:07 2.0 11/20/16 08:07 Nasal Cannula Intake and Output 11/19/16 11/19/16 11/20/16 15:00 23:00 07:00 Intake Total 300 ml 1220 ml 350 ml Output Total 3000 ml Balance -2700 ml 1220 ml 350 ml Exam HEENT exam; supple neck, no JVD. No lymphadenopathy. Midline trachea. No thyromegaly. Pupils are small bilaterally. Pharynx is clear. Patient has fair dentition. Chest examination; clear to ulceration. S1-S2 audible, no murmurs. Regular rhythm. Abdomen examination; soft, nontender. No organomegaly. Nondistended. Bowel sounds audible. Extremity examination; no peripheral edema. There are multiple ecchymosis involving all 4 extremities which appeared quite stable. NUCLEAR MEDICINE TECH examination; no focal deficit, however patient has generalized muscular weakness with interval improvement. Results Result Diagram: 11/20/16 0635 11/20/16 0635 Results 24 hrs Laboratory Tests Test 11/19/16 17:11 11/19/16 20:22 11/20/16 01:48 11/20/16 05:51 Bedside Glucose 243 H 214 141 140 Test 11/20/16 06:35 11/20/16 08:59 11/20/16 12:24 White Blood Count 10.2 # Red Blood Count 3.01 L Hemoglobin 8.9 L Hematocrit 30.2 L Mean Corpuscular Volume 100.3 Mean Corpuscular Hemoglobin 29.6 Mean Corpuscular Hemoglobin Concent 29.5 L Red Cell Distribution Width 19.1 H Platelet Count 247 Mean Platelet Volume 11.1 H Neutrophils % 54.3 Lymphocytes % 27.8 Monocytes % 12.6 H Eosinophils % 3.7 Basophils % 0.3 Nucleated Red Blood Cells % 0.2 H Neutrophils # 5.6 Lymphocytes # 2.8 Monocytes # 1.3 H Eosinophils # 0.4 Basophils # 0.0 Nucleated Red Blood Cells # 0.0 Prothrombin Time 13.4 Prothrombin Time Ratio 1.0 INR International Normalized Ratio 1.02 Sodium Level 131 L Potassium Level 5.1 Chloride Level 98 Carbon Dioxide Level 27 Anion Gap 11 Blood Urea Nitrogen 49 H Creatinine 2.28 H Glucose Level 140 Calcium Level 8.4 Total Bilirubin 0.0 L Direct Bilirubin 0.00 Indirect Bilirubin 0.0 Aspartate Amino Transf (AST/SGOT) 38 Alanine Aminotransferase (ALT/SGPT) 34 Alkaline Phosphatase 155 H Total Protein 5.7 L Albumin 2.6 L Globulin 3.10 Albumin/Globulin Ratio 0.83 Bedside Glucose 200 152 Medications Medications Current Medications Acetaminophen (Tylenol Liquid) 650 mg Q4H PRN NGT PAIN AND OR ELEVATED TEMP Last administered on 11/09/16 11:10; Admin Dose 650 MG; Start 09/21/16 at 02:00 Pantoprazole (Protonix Iv) 40 mg AM IV Last administered on 11/20/16 09:08; Admin Dose 40 MG; Start 09/26/16 at 09:00 Epoetin Raj (Epogen (Esrd)) 10,000 units TuThSa@17 SC Last administered on 17:02; Admin Dose 10,000 UNITS; Start 09/26/16 at 17:00 IV Flush (NS 10 ml) 10 ml PRN PRN IV IV PROTOCOL; Start 09/26/16 at 17:30 Calcium Carbonate (Tums) 500 mg TID NGT Last administered on 11/20/16 12:21; Admin Dose 500 MG; Start 10/15/16 at 21:00 Metoprolol Tartrate (Lopressor) 25 mg BID PO Last administered on 11/20/16 09: 08; Admin Dose 25 MG; Start 10/20/16 at 21:00 Lactulose (Enulose) 20 gm BID PRN PO CONSTIPATION Last administered on 12:57; Admin Dose 20 GM; Start 10/23/16 at 10:30 Lactobacillus Acidophilus (Florajen3 Capsule) 1 each TID PO Last administered on 11/20/16 12:21; Admin Dose 1 EACH; Start 10/25/16 at 13:30 Amylase/Lipase/ Protease (CREON ([id number])) 3 cap Q6 NGT Last administered on 11/20/16 12:31; Admin Dose 3 CAP; Start 10/29/16 at 13:00 Latanoprost (Xalatan) 1 drop HS BOTH EYES Last administered on 11/19/16 21:25 ; Admin Dose 1 DROP; Start 10/31/16 at 21:00 Dorzolamide/ Timolol (Cosopt) 1 drop BID BOTH EYES Last administered on 09:06; Admin Dose 1 DROP; Start 10/31/16 at 21:00 Miscellaneous Information 1 ea NOTE XX ; Start 11/03/16 at 18:00 Glucagon (Glucagen) 1 mg Q15M PRN IM DECREASED GLUCOSE; Start 11/03/16 at 18:00 Ondansetron HCl (Zofran Inj) 4 mg Q4H PRN IV NAUSEA AND/OR VOMITING Last administered on 11/17/16 08:19; Admin Dose 4 MG; Start 11/04/16 at 23:00 Eye Lubricant (Artificial Tears Oph) 2 drop QID BOTH EYES Last administered on 11/20/16 12:22; Admin Dose 2 DROP; Start 11/07/16 at 09:00 Sodium Biphosphate/ Sodium Phosphate (Fleet Enema) 133 ml DAILY PRN [place] CONSTIPATION; Start 11/07/16 at 19:00 Metoclopramide HCl (Reglan) 5 mg TID IV Last administered on 11/20/16 12:21; Admin Dose 5 MG; Start 11/09/16 at 13:00 Calcium Carbonate (Tums Ex) 750 mg Q6H PRN PO dyspepsia Last administered on 08:12; Admin Dose 750 MG; Start 11/09/16 at 12:30 Morphine Sulfate (morphine) 1 mg Q3H PRN IV pain Last administered on 20:11; Admin Dose 1 MG; Start 11/10/16 at 08:00 Aspirin (Aspirin) 81 mg DAILY GTB Last administered on 11/20/16 09:06; Admin Dose 81 MG; Start 11/12/16 at 19:00 Miscellaneous Information 1 ea NOTE XX ; Start 11/14/16 at 10:00 Glucose (Glutose) 15 gm Q15M PRN PO DECREASED GLUCOSE; Start 11/14/16 at 10:00 Glucose (Glutose) 22.5 gm Q15M PRN PO DECREASED GLUCOSE; Start 11/14/16 at 10: 00 Dextrose (D50w Syringe) 25 ml Q15M PRN IV DECREASED GLUCOSE; Start 11/14/16 at 10:00 Dextrose (D50w Syringe) 50 ml Q15M PRN IV DECREASED GLUCOSE; Start 11/14/16 at 10:00 Glucose (Glutose) 15 gm Q15M PRN BUCCAL DECREASED GLUCOSE; Start 11/14/16 at 10 :00 Insulin Glargine (Lantus) 22 unit DAILY@08 SC Last administered on 11/20/16 09 :01; Admin Dose 22 UNIT; Start 11/17/16 at 08:00 Escitalopram Oxalate (Lexapro) 10 mg DAILY GTB Last administered on 11/20/16 09:07; Admin Dose 10 MG; Start 11/16/16 at 12:30 Insulin Aspart (Novolog Insulin Pen) NOVOLOG *MODERATE* ALGORI... Q4 SC Last administered on 11/20/16 12:29; Admin Dose 2 UNIT; Start 11/18/16 at 09:00 Clopidogrel Bisulfate (plaVIX) 75 mg DAILY GTB Last administered on 11/20/16 09:07; Admin Dose 75 MG; Start 11/18/16 at 13:00 ADIS CAMACHO November 20, 2016 13:07
--- NOTE | 2016-11-20 13:32 | CONS ---
Date/Time of Note Date/Time of Note DATE: 11/20/16 TIME: 13:27 Assessment/Plan Assessment/Plan Chief Complaint/Hosp Course 1. Acute Renal Failure due to ATN . She is now on maintenance hemodialysis . She still has evidence of volume overload . She is going to have hemodialysis tomorrow . 2. ALOC , she continues to be very weak and lethargic . But overall better . She is making progress with PT . 3. liver enzyme elevation has resolved.. 4. CHF , she continues to have lung congestion and peripheral edema ; however she is having fluid removed with dialysis and is overall better . 5. hypocalcemia/hypoalbuminemia , calcium is higher 6. anemia , She has no active GI bleeding now. 7. peripheral vascular disease . 8. respiratory failure , pulmonary function has improved . 9 dysphagia , she has a PEG , will have speech re- evaluate . . Problems: Consultation Date/Type/Reason Admit Date/Time Sep 20, 2016 at 19:21 Initial Consult Date 09/23/16 Type of Consultation: Pulmonary Referring Provider: ZANDRA ROBISON MD[facility] HR Interval Summary Free Text/Dictation She is awake and alert . She got up with PT today and sat on the edge of the bed . Constitutional: improved, no complaints Exam/Review of Systems Vital Signs Vitals Vital Signs Date Time Temp Pulse Resp B/P Pulse Ox O2 Delivery O2 Flow Rate FiO2 11/20/16 12:20 74 11/20/16 11:39 98.0 18 97/50 100 11/20/16 08:07 2.0 11/20/16 08:07 Nasal Cannula Intake and Output 11/19/16 11/19/16 11/20/16 15:00 23:00 07:00 Intake Total 300 ml 1220 ml 350 ml Output Total 3000 ml Balance -2700 ml 1220 ml 350 ml Exam Constitutional: alert, frail, oriented Respiratory: clear to auscultation, diminished breath sounds Cardiovascular: edema, regular rate and rhythm Gastrointestinal: soft Extremities: edema Results Result Diagram: 11/20/16 0635 11/20/16 0635 Results 24 hrs Laboratory Tests Test 11/19/16 17:11 11/19/16 20:22 11/20/16 01:48 11/20/16 05:51 Bedside Glucose 243 H 214 141 140 Test 11/20/16 06:35 11/20/16 08:59 11/20/16 12:24 White Blood Count 10.2 # Red Blood Count 3.01 L Hemoglobin 8.9 L Hematocrit 30.2 L Mean Corpuscular Volume 100.3 Mean Corpuscular Hemoglobin 29.6 Mean Corpuscular Hemoglobin Concent 29.5 L Red Cell Distribution Width 19.1 H Platelet Count 247 Mean Platelet Volume 11.1 H Neutrophils % 54.3 Lymphocytes % 27.8 Monocytes % 12.6 H Eosinophils % 3.7 Basophils % 0.3 Nucleated Red Blood Cells % 0.2 H Neutrophils # 5.6 Lymphocytes # 2.8 Monocytes # 1.3 H Eosinophils # 0.4 Basophils # 0.0 Nucleated Red Blood Cells # 0.0 Prothrombin Time 13.4 Prothrombin Time Ratio 1.0 INR International Normalized Ratio 1.02 Sodium Level 131 L Potassium Level 5.1 Chloride Level 98 Carbon Dioxide Level 27 Anion Gap 11 Blood Urea Nitrogen 49 H Creatinine 2.28 H Glucose Level 140 Calcium Level 8.4 Total Bilirubin 0.0 L Direct Bilirubin 0.00 Indirect Bilirubin 0.0 Aspartate Amino Transf (AST/SGOT) 38 Alanine Aminotransferase (ALT/SGPT) 34 Alkaline Phosphatase 155 H Total Protein 5.7 L Albumin 2.6 L Globulin 3.10 Albumin/Globulin Ratio 0.83 Bedside Glucose 200 152 Medications Medications Current Medications Acetaminophen (Tylenol Liquid) 650 mg Q4H PRN NGT PAIN AND OR ELEVATED TEMP Last administered on 11/09/16 11:10; Admin Dose 650 MG; Start 09/21/16 at 02:00 Pantoprazole (Protonix Iv) 40 mg AM IV Last administered on 11/20/16 09:08; Admin Dose 40 MG; Start 09/26/16 at 09:00 Epoetin Raj (Epogen (Esrd)) 10,000 units TuThSa@17 SC Last administered on 17:02; Admin Dose 10,000 UNITS; Start 09/26/16 at 17:00 IV Flush (NS 10 ml) 10 ml PRN PRN IV IV PROTOCOL; Start 09/26/16 at 17:30 Calcium Carbonate (Tums) 500 mg TID NGT Last administered on 11/20/16 12:21; Admin Dose 500 MG; Start 10/15/16 at 21:00 Metoprolol Tartrate (Lopressor) 25 mg BID PO Last administered on 11/20/16 09: 08; Admin Dose 25 MG; Start 10/20/16 at 21:00 Lactulose (Enulose) 20 gm BID PRN PO CONSTIPATION Last administered on 12:57; Admin Dose 20 GM; Start 10/23/16 at 10:30 Lactobacillus Acidophilus (Florajen3 Capsule) 1 each TID PO Last administered on 11/20/16 12:21; Admin Dose 1 EACH; Start 10/25/16 at 13:30 Amylase/Lipase/ Protease (CREON ([id number])) 3 cap Q6 NGT Last administered on 11/20/16 12:31; Admin Dose 3 CAP; Start 10/29/16 at 13:00 Latanoprost (Xalatan) 1 drop HS BOTH EYES Last administered on 11/19/16 21:25 ; Admin Dose 1 DROP; Start 10/31/16 at 21:00 Dorzolamide/ Timolol (Cosopt) 1 drop BID BOTH EYES Last administered on 09:06; Admin Dose 1 DROP; Start 10/31/16 at 21:00 Miscellaneous Information 1 ea NOTE XX ; Start 11/03/16 at 18:00 Glucagon (Glucagen) 1 mg Q15M PRN IM DECREASED GLUCOSE; Start 11/03/16 at 18:00 Ondansetron HCl (Zofran Inj) 4 mg Q4H PRN IV NAUSEA AND/OR VOMITING Last administered on 11/17/16 08:19; Admin Dose 4 MG; Start 11/04/16 at 23:00 Eye Lubricant (Artificial Tears Oph) 2 drop QID BOTH EYES Last administered on 11/20/16 12:22; Admin Dose 2 DROP; Start 11/07/16 at 09:00 Sodium Biphosphate/ Sodium Phosphate (Fleet Enema) 133 ml DAILY PRN [place] CONSTIPATION; Start 11/07/16 at 19:00 Metoclopramide HCl (Reglan) 5 mg TID IV Last administered on 11/20/16 12:21; Admin Dose 5 MG; Start 11/09/16 at 13:00 Calcium Carbonate (Tums Ex) 750 mg Q6H PRN PO dyspepsia Last administered on 08:12; Admin Dose 750 MG; Start 11/09/16 at 12:30 Morphine Sulfate (morphine) 1 mg Q3H PRN IV pain Last administered on 20:11; Admin Dose 1 MG; Start 11/10/16 at 08:00 Aspirin (Aspirin) 81 mg DAILY GTB Last administered on 11/20/16 09:06; Admin Dose 81 MG; Start 11/12/16 at 19:00 Miscellaneous Information 1 ea NOTE XX ; Start 11/14/16 at 10:00 Glucose (Glutose) 15 gm Q15M PRN PO DECREASED GLUCOSE; Start 11/14/16 at 10:00 Glucose (Glutose) 22.5 gm Q15M PRN PO DECREASED GLUCOSE; Start 11/14/16 at 10: 00 Dextrose (D50w Syringe) 25 ml Q15M PRN IV DECREASED GLUCOSE; Start 11/14/16 at 10:00 Dextrose (D50w Syringe) 50 ml Q15M PRN IV DECREASED GLUCOSE; Start 11/14/16 at 10:00 Glucose (Glutose) 15 gm Q15M PRN BUCCAL DECREASED GLUCOSE; Start 11/14/16 at 10 :00 Insulin Glargine (Lantus) 22 unit DAILY@08 SC Last administered on 11/20/16 09 :01; Admin Dose 22 UNIT; Start 11/17/16 at 08:00 Escitalopram Oxalate (Lexapro) 10 mg DAILY GTB Last administered on 11/20/16 09:07; Admin Dose 10 MG; Start 11/16/16 at 12:30 Insulin Aspart (Novolog Insulin Pen) NOVOLOG *MODERATE* ALGORI... Q4 SC Last administered on 11/20/16 12:29; Admin Dose 2 UNIT; Start 11/18/16 at 09:00 Clopidogrel Bisulfate (plaVIX) 75 mg DAILY GTB Last administered on 11/20/16 09:07; Admin Dose 75 MG; Start 11/18/16 at 13:00 DAMIR MARTINEZ MD November 20, 2016 13:32
[2016-11-20] MEDS: LATANOPROST 0.005% 2.5 ML OPH BOTH EYES SCH (21:20)
[2016-11-21] VITALS (20 sets, daily range): BP systolic 95–134; BP diastolic 48–64; PULSE 70–94; RESP 16–20
[2016-11-21] MEDS: INSULIN ASPART [NOVOLOG] 3 ML PEN SC SCH ×6 (01:00→21:30)
[2016-11-21] MEDS: LEVALBUTEROL (NEB) 1.25 MG/0.5 ML AMP HHN SCH ×4 (02:45→20:34)
[2016-11-21] MEDS: IPRATROPIUM (NEB) 0.5 MG/2.5 ML AMP HHN SCH ×4 (02:45→20:34)
[2016-11-21] MEDS: morphine 2 MG INJ IV PRN (02:57)
[2016-11-21] MEDS: CREON (12k-38k-60k) 1 CAP NGT SCH ×3 (05:13→17:47)
[2016-11-21 07:08] LABS: ADD SCAN DIFF NO
[2016-11-21 07:16] LABS: BASOPHILS % 0.3 % (0.0-2.0); EOSINOPHILS # 0.3 10^3/ul (0.0-0.5); EOSINOPHILS % 3.2 % (0.0-7.0); HEMATOCRIT 30.4 % (37.0-47.0); HEMOGLOBIN 8.9 g/dl (12.0-16.0); LYMPHOCYTES # 2.5 10^3/ul (0.8-2.9); LYMPHOCYTES % 25.6 % (15.0-51.0); MEAN CORPUSCULAR HEMOGLOBIN 28.8 pg (29.0-33.0); MEAN CORPUSCULAR HGB CONC 29.3 g/dl (32.0-37.0); MEAN CORPUSCULAR VOLUME 98.4 fl (82.0-101.0); MEAN PLATELET VOLUME 10.7 fl (7.4-10.4); MONOCYTE # 1.2 10^3/ul (0.3-0.9); MONOCYTES % 12.2 % (0.0-11.0); NEUTROPHIL # 5.7 10^3/ul (1.6-7.5); NEUTROPHILS % 57.5 % (39.0-77.0); PLATELET COUNT 280 10^3/UL (140-415); RED BLOOD COUNT 3.09 10^6/ul (4.20-5.40); RED CELL DISTRIBUTION WIDTH 18.9 % (11.5-14.5); WHITE BLOOD COUNT 9.9 10^3/ul (4.8-10.8)
[2016-11-21 07:40] LABS: CALCIUM 8.4 mg/dl (8.4-10.2); CREATININE 2.84 mg/dl (0.44-1.00); POTASSIUM 5.2 mmol/L (3.5-5.1)
[2016-11-21] MEDS: L ACIDOPHIL/B LACTIS/B LONGUM CAPSULE PO SCH ×3 (08:50→21:09)
[2016-11-21] MEDS: CLOPIDOGREL 75 MG TAB GTB SCH (08:50)
[2016-11-21] MEDS: ESCITALOPRAM 10 MG TAB GTB SCH (08:50)
[2016-11-21] MEDS: CALCIUM CARBONATE 500 MG CHEW TAB NGT SCH ×3 (08:50→21:10)
[2016-11-21] MEDS: ASPIRIN 81 MG TAB GTB SCH (08:50)
[2016-11-21] MEDS: METOPROLOL 25 MG TAB PO SCH ×2 (08:51→21:10)
--- NOTE | 2016-11-21 09:32 | CONS ---
Date/Time of Note Date/Time of Note DATE: 11/21/16 TIME: 09:30 Assessment/Plan Assessment/Plan Chief Complaint/Hosp Course 1. Acute Renal Failure due to ATN . She is now on maintenance hemodialysis . She less evidence of volume overload . She is going to have hemodialysis today . 2. ALOC , she continues to be very weak and lethargic . But overall better . She is making progress with PT . 3. liver enzyme elevation has resolved.. 4. CHF , she continues to have lung congestion and peripheral edema ; however she is having fluid removed with dialysis and is overall better . 5. hypocalcemia/hypoalbuminemia , calcium is higher 6. anemia , She has no active GI bleeding now. 7. peripheral vascular disease . 8. respiratory failure , pulmonary function has improved . 9 dysphagia , she has a PEG , will have speech re- evaluate . . Problems: Consultation Date/Type/Reason Admit Date/Time Sep 20, 2016 at 19:21 Initial Consult Date 09/23/16 Type of Consultation: Pulmonary Referring Provider: ZANDRA ROBISON MD, [facility] HR Interval Summary Free Text/Dictation She is awake and alert . Constitutional: improved, no complaints Exam/Review of Systems Vital Signs Vitals Vital Signs Date Time Temp Pulse Resp B/P Pulse Ox O2 Delivery O2 Flow Rate FiO2 11/21/16 08:07 70 11/21/16 07:51 97.8 18 98/48 100 11/20/16 20:00 21 11/20/16 13:59 Nasal Cannula 2.0 Intake and Output 11/20/16 11/20/16 11/21/16 15:00 23:00 07:00 Intake Total 1095 ml 420 ml Balance 1095 ml 420 ml Exam Constitutional: alert, frail, oriented Respiratory: clear to auscultation, normal air movement Cardiovascular: edema, regular rate and rhythm Musculoskeletal: nl extremities to inspection Results Result Diagram: 11/21/16 0615 11/21/16 0615 Results 24 hrs Laboratory Tests Test 11/20/16 12:24 11/20/16 17:08 11/20/16 21:03 11/21/16 01:04 Bedside Glucose 152 207 218 139 Test 11/21/16 05:09 11/21/16 06:15 Bedside Glucose 128 White Blood Count 9.9 Red Blood Count 3.09 L Hemoglobin 8.9 L Hematocrit 30.4 L Mean Corpuscular Volume 98.4 Mean Corpuscular Hemoglobin 28.8 L Mean Corpuscular Hemoglobin Concent 29.3 L Red Cell Distribution Width 18.9 H Platelet Count 280 Mean Platelet Volume 10.7 H Neutrophils % 57.5 Lymphocytes % 25.6 Monocytes % 12.2 H Eosinophils % 3.2 Basophils % 0.3 Nucleated Red Blood Cells % 0.0 Neutrophils # 5.7 Lymphocytes # 2.5 Monocytes # 1.2 H Eosinophils # 0.3 Basophils # 0.0 Nucleated Red Blood Cells # 0.0 Sodium Level 129 L Potassium Level 5.2 H Chloride Level 96 L Carbon Dioxide Level 27 Anion Gap 11 Blood Urea Nitrogen 65 H Creatinine 2.84 H Glucose Level 121 Calcium Level 8.4 Medications Medications Current Medications Acetaminophen (Tylenol Liquid) 650 mg Q4H PRN NGT PAIN AND OR ELEVATED TEMP Last administered on 11/09/16 11:10; Admin Dose 650 MG; Start 09/21/16 at 02:00 Pantoprazole (Protonix Iv) 40 mg AM IV Last administered on 11/20/16 09:08; Admin Dose 40 MG; Start 09/26/16 at 09:00 Epoetin Raj (Epogen (Esrd)) 10,000 units TuThSa@17 SC Last administered on 17:02; Admin Dose 10,000 UNITS; Start 09/26/16 at 17:00 IV Flush (NS 10 ml) 10 ml PRN PRN IV IV PROTOCOL; Start 09/26/16 at 17:30 Calcium Carbonate (Tums) 500 mg TID NGT Last administered on 11/20/16 21:19; Admin Dose 500 MG; Start 10/15/16 at 21:00 Metoprolol Tartrate (Lopressor) 25 mg BID PO Last administered on 11/20/16 21: 19; Admin Dose 25 MG; Start 10/20/16 at 21:00 Lactulose (Enulose) 20 gm BID PRN PO CONSTIPATION Last administered on 12:57; Admin Dose 20 GM; Start 10/23/16 at 10:30 Lactobacillus Acidophilus (Florajen3 Capsule) 1 each TID PO Last administered on 11/20/16 21:19; Admin Dose 1 EACH; Start 10/25/16 at 13:30 Amylase/Lipase/ Protease (CREON ([id number])) 3 cap Q6 NGT Last administered on 11/20/16 23:08; Admin Dose 3 CAP; Start 10/29/16 at 13:00 Latanoprost (Xalatan) 1 drop HS BOTH EYES Last administered on 11/20/16 21:20 ; Admin Dose 1 DROP; Start 10/31/16 at 21:00 Dorzolamide/ Timolol (Cosopt) 1 drop BID BOTH EYES Last administered on 21:20; Admin Dose 1 DROP; Start 10/31/16 at 21:00 Miscellaneous Information 1 ea NOTE XX ; Start 11/03/16 at 18:00 Glucagon (Glucagen) 1 mg Q15M PRN IM DECREASED GLUCOSE; Start 11/03/16 at 18:00 Ondansetron HCl (Zofran Inj) 4 mg Q4H PRN IV NAUSEA AND/OR VOMITING Last administered on 11/17/16 08:19; Admin Dose 4 MG; Start 11/04/16 at 23:00 Eye Lubricant (Artificial Tears Oph) 2 drop QID BOTH EYES Last administered on 11/20/16 21:20; Admin Dose 2 DROP; Start 11/07/16 at 09:00 Sodium Biphosphate/ Sodium Phosphate (Fleet Enema) 133 ml DAILY PRN [place] CONSTIPATION; Start 11/07/16 at 19:00 Metoclopramide HCl (Reglan) 5 mg TID IV Last administered on 11/20/16 21:20; Admin Dose 5 MG; Start 11/09/16 at 13:00 Calcium Carbonate (Tums Ex) 750 mg Q6H PRN PO dyspepsia Last administered on 08:12; Admin Dose 750 MG; Start 11/09/16 at 12:30 Morphine Sulfate (morphine) 1 mg Q3H PRN IV pain Last administered on 02:57; Admin Dose 1 MG; Start 11/10/16 at 08:00 Aspirin (Aspirin) 81 mg DAILY GTB Last administered on 11/20/16 09:06; Admin Dose 81 MG; Start 11/12/16 at 19:00 Miscellaneous Information 1 ea NOTE XX ; Start 11/14/16 at 10:00 Glucose (Glutose) 15 gm Q15M PRN PO DECREASED GLUCOSE; Start 11/14/16 at 10:00 Glucose (Glutose) 22.5 gm Q15M PRN PO DECREASED GLUCOSE; Start 11/14/16 at 10: 00 Dextrose (D50w Syringe) 25 ml Q15M PRN IV DECREASED GLUCOSE; Start 11/14/16 at 10:00 Dextrose (D50w Syringe) 50 ml Q15M PRN IV DECREASED GLUCOSE; Start 11/14/16 at 10:00 Glucose (Glutose) 15 gm Q15M PRN BUCCAL DECREASED GLUCOSE; Start 11/14/16 at 10 :00 Insulin Glargine (Lantus) 22 unit DAILY@08 SC Last administered on 11/20/16 09 :01; Admin Dose 22 UNIT; Start 11/17/16 at 08:00 Escitalopram Oxalate (Lexapro) 10 mg DAILY GTB Last administered on 11/20/16 09:07; Admin Dose 10 MG; Start 11/16/16 at 12:30 Insulin Aspart (Novolog Insulin Pen) NOVOLOG *MODERATE* ALGORI... Q4 SC Last administered on 11/20/16 21:22; Admin Dose 4 UNIT; Start 11/18/16 at 09:00 Clopidogrel Bisulfate (plaVIX) 75 mg DAILY GTB Last administered on 11/20/16 09:07; Admin Dose 75 MG; Start 11/18/16 at 13:00 DAMIR MARTINEZ MD November 21, 2016 09:32
[2016-11-21] MEDS: PANTOPRAZOLE 40 MG INJ IV SCH (10:16)
[2016-11-21] MEDS: INSULIN GLARGINE [LANtus] 3 ML PEN SC SCH (10:18)
[2016-11-21] MEDS: ARTIFICIAL TEARS 15 ML OPH BOTH EYES SCH ×4 (10:18→21:11)
[2016-11-21] MEDS: DORZOLAMIDE/TIMOLOL 10 ML OPH BOTH EYES SCH ×2 (10:18→21:11)
[2016-11-21] MEDS: METOCLOPRAMIDE 10 MG INJ IV SCH ×3 (10:19→21:09)
--- NOTE | 2016-11-21 12:08 | CONS ---
Date/Time of Note Date/Time of Note DATE: 11/21/16 TIME: 12:05 Assessment/Plan Assessment/Plan Additional Assessment/Plan Assessment recommendations; 1. Patient admitted for anemia without any source being discovered. Had negative EGD and a suboptimal colonoscopy due to poor prep however no overt bleeding noted. Patient maintaining stable hematocrit. 2. Chronic renal failure, on hemodialysis. 3. History of hypertension, diabetes, hypo-thyroidism. 4. History of recent severe bilateral pneumonia causing prolonged mechanical ventilation, patient however doing very well from that standpoint. 5. Chest x-ray reviewed from yesterday showing very minimal bilateral pleural effusions. Continue current treatment. Consider discharge. Consultation Date/Type/Reason Admit Date/Time Sep 20, 2016 at 19:21 Initial Consult Date 09/23/16 Type of Consultation: Pulmonary Referring Provider: ZANDRA ROBISON MD, [facility] 24 HR Interval Summary Free Text/Dictation Patient condition is stable. Denies any shortness of breath, chest pain. Currently getting hemodialysis at bedside. General exam; elderly lady, awake alert currently in no distress. Exam/Review of Systems Vital Signs Vitals Vital Signs Date Time Temp Pulse Resp B/P Pulse Ox O2 Delivery O2 Flow Rate FiO2 11/21/16 12:05 74 11/21/16 07:51 97.8 18 98/48 100 11/20/16 20:00 21 11/20/16 13:59 Nasal Cannula 2.0 Intake and Output 11/20/16 11/20/16 11/21/16 15:00 23:00 07:00 Intake Total 1095 ml 420 ml Balance 1095 ml 420 ml Exam H EENT exam is; supple neck, positive JVD. No lymphadenopathy. Midline trachea. No thyromegaly. Pupils are small bilaterally. Chest examination; diminished but clear vessel. S1-S2 audible, no murmurs. Abdomen examination; soft, nontender, nondistended. Bowel is audible. No organomegaly. Extremity examination; no peripheral edema. Patient has multiple healing ecchymosis involving all 4 extremities. [employer] examination; no obvious focal motor deficit, patient however still has significant generalized muscular weakness. Results Result Diagram: 11/21/16 0615 11/21/16 0615 Results 24 hrs Laboratory Tests Test 11/20/16 12:24 11/20/16 17:08 11/20/16 21:03 11/21/16 01:04 Bedside Glucose 152 207 218 139 Test 11/21/16 05:09 11/21/16 06:15 11/21/16 10:17 Bedside Glucose 128 145 White Blood Count 9.9 Red Blood Count 3.09 L Hemoglobin 8.9 L Hematocrit 30.4 L Mean Corpuscular Volume 98.4 Mean Corpuscular Hemoglobin 28.8 L Mean Corpuscular Hemoglobin Concent 29.3 L Red Cell Distribution Width 18.9 H Platelet Count 280 Mean Platelet Volume 10.7 H Neutrophils % 57.5 Lymphocytes % 25.6 Monocytes % 12.2 H Eosinophils % 3.2 Basophils % 0.3 Nucleated Red Blood Cells % 0.0 Neutrophils # 5.7 Lymphocytes # 2.5 Monocytes # 1.2 H Eosinophils # 0.3 Basophils # 0.0 Nucleated Red Blood Cells # 0.0 Sodium Level 129 L Potassium Level 5.2 H Chloride Level 96 L Carbon Dioxide Level 27 Anion Gap 11 Blood Urea Nitrogen 65 H Creatinine 2.84 H Glucose Level 121 Calcium Level 8.4 Medications Medications Current Medications Acetaminophen (Tylenol Liquid) 650 mg Q4H PRN NGT PAIN AND OR ELEVATED TEMP Last administered on 11/09/16 11:10; Admin Dose 650 MG; Start 09/21/16 at 02:00 Pantoprazole (Protonix Iv) 40 mg AM IV Last administered on 11/21/16 10:16; Admin Dose 40 MG; Start 09/26/16 at 09:00 Epoetin Raj (Epogen (Esrd)) 10,000 units TuThSa@17 SC Last administered on 17:02; Admin Dose 10,000 UNITS; Start 09/26/16 at 17:00 IV Flush (NS 10 ml) 10 ml PRN PRN IV IV PROTOCOL; Start 09/26/16 at 17:30 Calcium Carbonate (Tums) 500 mg TID NGT Last administered on 11/20/16 21:19; Admin Dose 500 MG; Start 10/15/16 at 21:00 Metoprolol Tartrate (Lopressor) 25 mg BID PO Last administered on 11/20/16 21: 19; Admin Dose 25 MG; Start 10/20/16 at 21:00 Lactulose (Enulose) 20 gm BID PRN PO CONSTIPATION Last administered on 12:57; Admin Dose 20 GM; Start 10/23/16 at 10:30 Lactobacillus Acidophilus (Florajen3 Capsule) 1 each TID PO Last administered on 11/20/16 21:19; Admin Dose 1 EACH; Start 10/25/16 at 13:30 Amylase/Lipase/ Protease (CREON (49t-48w-60h)) 3 cap Q6 NGT Last administered on 11/20/16 23:08; Admin Dose 3 CAP; Start 10/29/16 at 13:00 Latanoprost (Xalatan) 1 drop HS BOTH EYES Last administered on 11/20/16 21:20 ; Admin Dose 1 DROP; Start 10/31/16 at 21:00 Dorzolamide/ Timolol (Cosopt) 1 drop BID BOTH EYES Last administered on 10:18; Admin Dose 1 DROP; Start 10/31/16 at 21:00 Miscellaneous Information 1 ea NOTE XX ; Start 11/03/16 at 18:00 Glucagon (Glucagen) 1 mg Q15M PRN IM DECREASED GLUCOSE; Start 11/03/16 at 18:00 Ondansetron HCl (Zofran Inj) 4 mg Q4H PRN IV NAUSEA AND/OR VOMITING Last administered on 11/17/16 08:19; Admin Dose 4 MG; Start 11/04/16 at 23:00 Eye Lubricant (Artificial Tears Oph) 2 drop QID BOTH EYES Last administered on 11/21/16 10:18; Admin Dose 2 DROP; Start 11/07/16 at 09:00 Sodium Biphosphate/ Sodium Phosphate (Fleet Enema) 133 ml DAILY PRN [place] CONSTIPATION; Start 11/07/16 at 19:00 Metoclopramide HCl (Reglan) 5 mg TID IV Last administered on 11/21/16 10:19; Admin Dose 5 MG; Start 11/09/16 at 13:00 Calcium Carbonate (Tums Ex) 750 mg Q6H PRN PO dyspepsia Last administered on 08:12; Admin Dose 750 MG; Start 11/09/16 at 12:30 Morphine Sulfate (morphine) 1 mg Q3H PRN IV pain Last administered on 02:57; Admin Dose 1 MG; Start 11/10/16 at 08:00 Aspirin (Aspirin) 81 mg DAILY GTB Last administered on 11/20/16 09:06; Admin Dose 81 MG; Start 11/12/16 at 19:00 Miscellaneous Information 1 ea NOTE XX ; Start 11/14/16 at 10:00 Glucose (Glutose) 15 gm Q15M PRN PO DECREASED GLUCOSE; Start 11/14/16 at 10:00 Glucose (Glutose) 22.5 gm Q15M PRN PO DECREASED GLUCOSE; Start 11/14/16 at 10: 00 Dextrose (D50w Syringe) 25 ml Q15M PRN IV DECREASED GLUCOSE; Start 11/14/16 at 10:00 Dextrose (D50w Syringe) 50 ml Q15M PRN IV DECREASED GLUCOSE; Start 11/14/16 at 10:00 Glucose (Glutose) 15 gm Q15M PRN BUCCAL DECREASED GLUCOSE; Start 11/14/16 at 10 :00 Insulin Glargine (Lantus) 22 unit DAILY@08 SC Last administered on 11/21/16 10 :18; Admin Dose 22 UNIT; Start 11/17/16 at 08:00 Escitalopram Oxalate (Lexapro) 10 mg DAILY GTB Last administered on 11/20/16 09:07; Admin Dose 10 MG; Start 11/16/16 at 12:30 Insulin Aspart (Novolog Insulin Pen) NOVOLOG *MODERATE* ALGORI... Q4 SC Last administered on 11/21/16 11:18; Admin Dose 2 UNIT; Start 11/18/16 at 09:00 Clopidogrel Bisulfate (plaVIX) 75 mg DAILY GTB Last administered on 11/20/16 09:07; Admin Dose 75 MG; Start 11/18/16 at 13:00 ADIS CAMACHO November 21, 2016 12:08
--- NOTE | 2016-11-21 14:48 | RADRPT ---
PROCEDURE: Video-fluoroscopy swallowing study. CLINICAL INDICATION: Dysphagia. TECHNIQUE: Fluoroscopic guided video swallowing study was done in conjunction with the speech ther apist. The study was confined to the oral, pharyngeal, and cervical phases of the swallowing mechani sm. 2.5 minutes of fluoroscopy time was used. COMPARISON: No prior study is available for comparison. FINDINGS: There is penetration with several trials and silent aspiration during swallowing nectar thick liquid s with a cup. There is also silent aspiration during swallowing nectar-thick liquids with a straw a nd silent aspiration during swallowing thin liquids with a spoon. IMPRESSION: 1. Abnormal study with silent aspiration during swallowing. 2. Please refer to the speech therapist's recommendations for future feedings. RPTAT: QQ .Arnaldo Back MD, Date Time Electronically viewed and signed by .Arnaldo Back MD, on 11/21/2016 14:47 .R/
[2016-11-21] MEDS: EPOETIN 10000 UNITS/1 ML INJ (ESRD) SC SCH (17:30)
--- NOTE | 2016-11-21 21:06 | PN ---
DATE: CHIEF COMPLAINT: History of gastrointestinal bleeding. From the history standpoint, she had an endoscopy done recently. A gastric ulcer was noted at the g astrostomy site. She was bleeding actively; however, at this time, she has stopped bleeding. Hemog lobin, however, has gone down to 8.9. She was on Plavix, which was discontinued. PHYSICAL EXAMINATION: ABDOMEN: Soft. G-tube is in place. CLINICAL IMPRESSION: The patient has a gastric ulcer probably causing slow bleed; however, no activ e bleeding noted. PLAN: Recommend continue Protonix and transfuse as needed. Dictated By: CIELO SANCHEZ MD NC/NTS Conf#: [id number] DID#: [id number] CC: SHAMA LOPEZ MD;*End*
[2016-11-21] MEDS: LATANOPROST 0.005% 2.5 ML OPH BOTH EYES SCH (21:11)
[2016-11-22] VITALS (12 sets, daily range): BP systolic 98–111; BP diastolic 50–71; PULSE 76–86; RESP 15–20
[2016-11-22] MEDS: CREON (12k-38k-60k) 1 CAP NGT SCH ×4 (00:39→17:26)
[2016-11-22] MEDS: INSULIN ASPART [NOVOLOG] 3 ML PEN SC SCH ×6 (00:45→20:45)
[2016-11-22] MEDS: LEVALBUTEROL (NEB) 1.25 MG/0.5 ML AMP HHN SCH ×4 (01:28→20:12)
[2016-11-22] MEDS: IPRATROPIUM (NEB) 0.5 MG/2.5 ML AMP HHN SCH ×4 (01:28→20:12)
--- NOTE | 2016-11-22 08:09 | CONS ---
Date/Time of Note Date/Time of Note DATE: 11/22/16 TIME: 08:05 Assessment/Plan Assessment/Plan Chief Complaint/Hosp Course 1. Acute Renal Failure due to ATN . She is now on maintenance hemodialysis . She less evidence of volume overload . She is going to have hemodialysis tomorrow . 2. ALOC , she continues to be very weak and lethargic . But overall better . She is making progress with PT . 3. liver enzyme elevation has resolved.. 4. CHF , she continues to have lung congestion and peripheral edema ; however she is having fluid removed with dialysis and is overall better . 5. hypocalcemia/hypoalbuminemia , calcium is higher 6. anemia , She has no active GI bleeding now. 7. peripheral vascular disease . 8. respiratory failure , pulmonary function has improved . 9 dysphagia , she has a PEG . . Problems: Consultation Date/Type/Reason Admit Date/Time Sep 20, 2016 at 19:21 Initial Consult Date 09/23/16 Type of Consultation: Pulmonary Referring Provider: ZANDRA ROBISON MD, [facility] 24 HR Interval Summary Free Text/Dictation She is sleeping but rouses easily to verbal stimuli . Constitutional: no complaints Exam/Review of Systems Vital Signs Vitals Vital Signs Date Time Temp Pulse Resp B/P Pulse Ox O2 Delivery O2 Flow Rate FiO2 11/22/16 07:32 80 16 96 21 11/22/16 07:17 98.5 103/53 11/21/16 09:40 Nasal Cannula 2.0 Intake and Output 11/21/16 11/21/16 11/22/16 15:00 23:00 07:00 Intake Total 300 ml 680 ml 440 ml Output Total 3800 ml Balance -3500 ml 680 ml 440 ml Exam Constitutional: alert, frail, oriented Respiratory: clear to auscultation, diminished breath sounds Cardiovascular: edema, regular rate and rhythm Gastrointestinal: soft Musculoskeletal: nl extremities to inspection Results Result Diagram: 11/21/16 0615 11/21/16 0615 Results 24 hrs Laboratory Tests Test 11/21/16 10:17 11/21/16 13:44 11/21/16 17:29 11/21/16 21:06 Bedside Glucose 145 162 199 141 Test 11/22/16 00:35 11/22/16 05:45 Bedside Glucose 162 125 Medications Medications Current Medications Acetaminophen (Tylenol Liquid) 650 mg Q4H PRN NGT PAIN AND OR ELEVATED TEMP Last administered on 11/09/16 11:10; Admin Dose 650 MG; Start 09/21/16 at 02:00 Pantoprazole (Protonix Iv) 40 mg AM IV Last administered on 11/21/16 10:16; Admin Dose 40 MG; Start 09/26/16 at 09:00 Epoetin Raj (Epogen (Esrd)) 10,000 units TuThSa@17 SC Last administered on 17:30; Admin Dose 10,000 UNITS; Start 09/26/16 at 17:00 IV Flush (NS 10 ml) 10 ml PRN PRN IV IV PROTOCOL; Start 09/26/16 at 17:30 Calcium Carbonate (Tums) 500 mg TID NGT Last administered on 11/21/16 21:10; Admin Dose 500 MG; Start 10/15/16 at 21:00 Metoprolol Tartrate (Lopressor) 25 mg BID PO Last administered on 11/21/16 21: 10; Admin Dose 25 MG; Start 10/20/16 at 21:00 Lactulose (Enulose) 20 gm BID PRN PO CONSTIPATION Last administered on 12:57; Admin Dose 20 GM; Start 10/23/16 at 10:30 Lactobacillus Acidophilus (Florajen3 Capsule) 1 each TID PO Last administered on 11/21/16 21:09; Admin Dose 1 EACH; Start 10/25/16 at 13:30 Amylase/Lipase/ Protease (CREON (55o-77k-60n)) 3 cap Q6 NGT Last administered on 11/22/16 06:15; Admin Dose 3 CAP; Start 10/29/16 at 13:00 Latanoprost (Xalatan) 1 drop HS BOTH EYES Last administered on 11/21/16 21:11 ; Admin Dose 1 DROP; Start 10/31/16 at 21:00 Dorzolamide/ Timolol (Cosopt) 1 drop BID BOTH EYES Last administered on 21:11; Admin Dose 1 DROP; Start 10/31/16 at 21:00 Miscellaneous Information 1 ea NOTE XX ; Start 11/03/16 at 18:00 Glucagon (Glucagen) 1 mg Q15M PRN IM DECREASED GLUCOSE; Start 11/03/16 at 18:00 Ondansetron HCl (Zofran Inj) 4 mg Q4H PRN IV NAUSEA AND/OR VOMITING Last administered on 11/17/16 08:19; Admin Dose 4 MG; Start 11/04/16 at 23:00 Eye Lubricant (Artificial Tears Oph) 2 drop QID BOTH EYES Last administered on 11/21/16 21:11; Admin Dose 2 DROP; Start 11/07/16 at 09:00 Sodium Biphosphate/ Sodium Phosphate (Fleet Enema) 133 ml DAILY PRN [place] CONSTIPATION; Start 11/07/16 at 19:00 Metoclopramide HCl (Reglan) 5 mg TID IV Last administered on 11/21/16 21:09; Admin Dose 5 MG; Start 11/09/16 at 13:00 Calcium Carbonate (Tums Ex) 750 mg Q6H PRN PO dyspepsia Last administered on 08:12; Admin Dose 750 MG; Start 11/09/16 at 12:30 Morphine Sulfate (morphine) 1 mg Q3H PRN IV pain Last administered on 02:57; Admin Dose 1 MG; Start 11/10/16 at 08:00 Aspirin (Aspirin) 81 mg DAILY GTB Last administered on 11/20/16 09:06; Admin Dose 81 MG; Start 11/12/16 at 19:00 Miscellaneous Information 1 ea NOTE XX ; Start 11/14/16 at 10:00 Glucose (Glutose) 15 gm Q15M PRN PO DECREASED GLUCOSE; Start 11/14/16 at 10:00 Glucose (Glutose) 22.5 gm Q15M PRN PO DECREASED GLUCOSE; Start 11/14/16 at 10: 00 Dextrose (D50w Syringe) 25 ml Q15M PRN IV DECREASED GLUCOSE; Start 11/14/16 at 10:00 Dextrose (D50w Syringe) 50 ml Q15M PRN IV DECREASED GLUCOSE; Start 11/14/16 at 10:00 Glucose (Glutose) 15 gm Q15M PRN BUCCAL DECREASED GLUCOSE; Start 11/14/16 at 10 :00 Insulin Glargine (Lantus) 22 unit DAILY@08 SC Last administered on 11/21/16 10 :18; Admin Dose 22 UNIT; Start 11/17/16 at 08:00 Escitalopram Oxalate (Lexapro) 10 mg DAILY GTB Last administered on 11/20/16 09:07; Admin Dose 10 MG; Start 11/16/16 at 12:30 Insulin Aspart (Novolog Insulin Pen) NOVOLOG *MODERATE* ALGORI... Q4 SC Last administered on 11/22/16 00:45; Admin Dose 2 UNIT; Start 11/18/16 at 09:00 Clopidogrel Bisulfate (plaVIX) 75 mg DAILY GTB Last administered on 11/20/16 09:07; Admin Dose 75 MG; Start 11/18/16 at 13:00 DAMIR MARTINEZ MD November 22, 2016 08:09
[2016-11-22] MEDS: ASPIRIN 81 MG TAB GTB SCH (08:31)
[2016-11-22] MEDS: METOCLOPRAMIDE 10 MG INJ IV SCH ×3 (08:32→20:43)
[2016-11-22] MEDS: L ACIDOPHIL/B LACTIS/B LONGUM CAPSULE PO SCH ×3 (08:32→20:44)
[2016-11-22] MEDS: ARTIFICIAL TEARS 15 ML OPH BOTH EYES SCH ×4 (08:32→20:43)
[2016-11-22] MEDS: DORZOLAMIDE/TIMOLOL 10 ML OPH BOTH EYES SCH ×2 (08:32→20:43)
[2016-11-22] MEDS: CLOPIDOGREL 75 MG TAB GTB SCH (08:32)
[2016-11-22] MEDS: PANTOPRAZOLE 40 MG INJ IV SCH (08:32)
[2016-11-22] MEDS: CALCIUM CARBONATE 500 MG CHEW TAB NGT SCH ×3 (08:32→20:43)
[2016-11-22] MEDS: METOPROLOL 25 MG TAB PO SCH ×2 (08:32→21:00)
[2016-11-22] MEDS: ESCITALOPRAM 10 MG TAB GTB SCH (08:32)
[2016-11-22] MEDS: INSULIN GLARGINE [LANtus] 3 ML PEN SC SCH (08:34)
--- NOTE | 2016-11-22 17:52 | PN ---
Date/Time of Note Date/Time of Note DATE: 11/21/16 TIME: 20:13 Assessment/Plan VTE Prophylaxis VTE Prophylaxis Intervention: other (asa, plavix) Lines/Catheters IV Catheter Type (from Nrsg): PICC Line Central line still needed: No Urinary Cath still in place: No Assessment/Plan Assessment/Plan 1. cad/ htn/ pad/ needs anticoag--restarted plavix on top of asa 2. rld/ weak coughs/ s/p 2x pneumonias w/ effusion--very slow progress 3. arf/ edema/ anemia--another slow improvement with cont fluid overload 4. dm 5. low na 6. depression 7. musc weak/ peg feed dependent--on thicken fluid trial w/ speech therapy ---per cards ---per pulm ---per renal ---pinch salt with diet ---aggressive ot/ pt/ st ---cont all supportive cares Subjective 24 Hr Interval Summary Free Text/Dictation lying in bed, awakable, responded with slight head nods & shakes. no pain, discouraged & bored look. not much motion. Exam/Review of Systems Vital Signs Vitals Vital Signs Date Time Temp Pulse Resp B/P Pulse Ox O2 Delivery O2 Flow Rate FiO2 11/22/16 16:00 86 11/22/16 15:24 98.3 19 111/55 96 11/22/16 14:45 21 11/22/16 08:00 Nasal Cannula 2.0 Intake and Output 11/21/16 11/21/16 11/22/16 15:00 23:00 07:00 Intake Total 300 ml 680 ml 440 ml Output Total 3800 ml Balance -3500 ml 680 ml 440 ml Results Result Diagram: 11/21/16 0615 11/21/16 0615 Results 24 hrs Laboratory Tests Test 11/21/16 21:06 11/22/16 00:35 11/22/16 05:45 11/22/16 08:08 Bedside Glucose 141 162 125 156 Test 11/22/16 12:00 11/22/16 17:24 Bedside Glucose 176 231 H Medications Medications Current Medications Acetaminophen (Tylenol Liquid) 650 mg Q4H PRN NGT PAIN AND OR ELEVATED TEMP Last administered on 11/09/16t 11:10; Admin Dose 650 MG; Start 09/21/16 at 02:00 Pantoprazole (Protonix Iv) 40 mg AM IV Last administered on 11/22/16 08:32; Admin Dose 40 MG; Start 09/26/16 at 09:00 Epoetin Raj (Epogen (Esrd)) 10,000 units TuThSa@17 SC Last administered on 17:30; Admin Dose 10,000 UNITS; Start 09/26/16 at 17:00 IV Flush (NS 10 ml) 10 ml PRN PRN IV IV PROTOCOL; Start 09/26/16 at 17:30 Calcium Carbonate (Tums) 500 mg TID NGT Last administered on 11/22/16 12:07; Admin Dose 500 MG; Start 10/15/16 at 21:00 Metoprolol Tartrate (Lopressor) 25 mg BID PO Last administered on 11/22/16 08: 32; Admin Dose 25 MG; Start 10/20/16 at 21:00 Lactulose (Enulose) 20 gm BID PRN PO CONSTIPATION Last administered on 12:57; Admin Dose 20 GM; Start 10/23/16 at 10:30 Lactobacillus Acidophilus (Florajen3 Capsule) 1 each TID PO Last administered on 11/22/16 12:07; Admin Dose 1 EACH; Start 10/25/16 at 13:30 Amylase/Lipase/ Protease (CREON (12k-38k-60k)) 3 cap Q6 NGT Last administered on 11/22/16 17:26; Admin Dose 3 CAP; Start 10/29/16 at 13:00 Latanoprost (Xalatan) 1 drop HS BOTH EYES Last administered on 11/21/16 21:11 ; Admin Dose 1 DROP; Start 10/31/16 at 21:00 Dorzolamide/ Timolol (Cosopt) 1 drop BID BOTH EYES Last administered on 08:32; Admin Dose 1 DROP; Start 10/31/16 at 21:00 Miscellaneous Information 1 ea NOTE XX ; Start 11/03/16 at 18:00 Glucagon (Glucagen) 1 mg Q15M PRN IM DECREASED GLUCOSE; Start 11/03/16 at 18:00 Ondansetron HCl (Zofran Inj) 4 mg Q4H PRN IV NAUSEA AND/OR VOMITING Last administered on 11/17/16 08:19; Admin Dose 4 MG; Start 11/04/16 at 23:00 Eye Lubricant (Artificial Tears Oph) 2 drop QID BOTH EYES Last administered on 11/22/16 17:26; Admin Dose 2 DROP; Start 11/07/16 at 09:00 Sodium Biphosphate/ Sodium Phosphate (Fleet Enema) 133 ml DAILY PRN [place] CONSTIPATION; Start 11/07/16 at 19:00 Metoclopramide HCl (Reglan) 5 mg TID IV Last administered on 11/22/16 12:07; Admin Dose 5 MG; Start 11/09/16 at 13:00 Calcium Carbonate (Tums Ex) 750 mg Q6H PRN PO dyspepsia Last administered on 08:12; Admin Dose 750 MG; Start 11/09/16 at 12:30 Morphine Sulfate (morphine) 1 mg Q3H PRN IV pain Last administered on 02:57; Admin Dose 1 MG; Start 11/10/16 at 08:00 Aspirin (Aspirin) 81 mg DAILY GTB Last administered on 11/22/16 08:31; Admin Dose 81 MG; Start 11/12/16 at 19:00 Miscellaneous Information 1 ea NOTE XX ; Start 11/14/16 at 10:00 Glucose (Glutose) 15 gm Q15M PRN PO DECREASED GLUCOSE; Start 11/14/16 at 10:00 Glucose (Glutose) 22.5 gm Q15M PRN PO DECREASED GLUCOSE; Start 11/14/16 at 10: 00 Dextrose (D50w Syringe) 25 ml Q15M PRN IV DECREASED GLUCOSE; Start 11/14/16 at 10:00 Dextrose (D50w Syringe) 50 ml Q15M PRN IV DECREASED GLUCOSE; Start 11/14/16 at 10:00 Glucose (Glutose) 15 gm Q15M PRN BUCCAL DECREASED GLUCOSE; Start 11/14/16 at 10 :00 Insulin Glargine (Lantus) 22 unit DAILY@08 SC Last administered on 11/22/16 08 :34; Admin Dose 22 UNIT; Start 11/17/16 at 08:00 Escitalopram Oxalate (Lexapro) 10 mg DAILY GTB Last administered on 11/22/16 08:32; Admin Dose 10 MG; Start 11/16/16 at 12:30 Insulin Aspart (Novolog Insulin Pen) NOVOLOG *MODERATE* ALGORI... Q4 SC Last administered on 11/22/16 17:33; Admin Dose 6 UNIT; Start 11/18/16 at 09:00 Clopidogrel Bisulfate (plaVIX) 75 mg DAILY GTB Last administered on 11/22/16 08:32; Admin Dose 75 MG; Start 11/18/16 at 13:00 SHAMA LOPEZ MD November 22, 2016 17:52
--- NOTE | 2016-11-22 17:56 | PN ---
Date/Time of Note Date/Time of Note DATE: 11/22/16 TIME: 17:52 Assessment/Plan VTE Prophylaxis VTE Prophylaxis Intervention: other (asa, plavix) Lines/Catheters IV Catheter Type (from Nrsg): PICC Line Central line still needed: No Urinary Cath still in place: No Assessment/Plan Assessment/Plan 1. cad/ htn/ pad 2. rld w/ still slight effusion/ weak coughs 3. arf/ fluid overload/ anemia 4. dm 5. peg feed dep/ musc weak 6. depression ---per cards ---per pulm ---per renal ---peg flush w/ ns ---cont all supportive cares ---px very guarded still, most likely needs to go to [facility] for strengthening before to home upon d/c from hosp Subjective 24 Hr Interval Summary Free Text/Dictation more vol in voice, no pain but weak, discouraged Exam/Review of Systems Vital Signs Vitals Vital Signs Date Time Temp Pulse Resp B/P Pulse Ox O2 Delivery O2 Flow Rate FiO2 11/22/16 16:00 86 11/22/16 15:24 98.3 19 111/55 96 11/22/16 14:45 21 11/22/16 08:00 Nasal Cannula 2.0 Intake and Output 11/21/16 11/21/16 11/22/16 15:00 23:00 07:00 Intake Total 300 ml 680 ml 440 ml Output Total 3800 ml Balance -3500 ml 680 ml 440 ml Exam in bed, obesem toes blue black dec bs bibasilar rr slight edema only Results Result Diagram: 11/21/16 0615 11/21/16 0615 Results 24 hrs Laboratory Tests Test 11/21/16 21:06 11/22/16 00:35 11/22/16 05:45 11/22/16 08:08 Bedside Glucose 141 162 125 156 Test 11/22/16 12:00 11/22/16 17:24 Bedside Glucose 176 231 H Medications Medications Current Medications Acetaminophen (Tylenol Liquid) 650 mg Q4H PRN NGT PAIN AND OR ELEVATED TEMP Last administered on 11/09/16 11:10; Admin Dose 650 MG; Start 09/21/16 at 02:00 Pantoprazole (Protonix Iv) 40 mg AM IV Last administered on 11/22/16 08:32; Admin Dose 40 MG; Start 09/26/16 at 09:00 Epoetin Raj (Epogen (Esrd)) 10,000 units TuThSa@17 SC Last administered on 17:30; Admin Dose 10,000 UNITS; Start 09/26/16 at 17:00 IV Flush (NS 10 ml) 10 ml PRN PRN IV IV PROTOCOL; Start 09/26/16 at 17:30 Calcium Carbonate (Tums) 500 mg TID NGT Last administered on 11/22/16 12:07; Admin Dose 500 MG; Start 10/15/16 at 21:00 Metoprolol Tartrate (Lopressor) 25 mg BID PO Last administered on 11/22/16 08: 32; Admin Dose 25 MG; Start 10/20/16 at 21:00 Lactulose (Enulose) 20 gm BID PRN PO CONSTIPATION Last administered on 12:57; Admin Dose 20 GM; Start 10/23/16 at 10:30 Lactobacillus Acidophilus (Florajen3 Capsule) 1 each TID PO Last administered on 11/22/16 12:07; Admin Dose 1 EACH; Start 10/25/16 at 13:30 Amylase/Lipase/ Protease (CREON (88r-93e-09f)) 3 cap Q6 NGT Last administered on 11/22/16 17:26; Admin Dose 3 CAP; Start 10/29/16 at 13:00 Latanoprost (Xalatan) 1 drop HS BOTH EYES Last administered on 11/21/16 21:11 ; Admin Dose 1 DROP; Start 10/31/16 at 21:00 Dorzolamide/ Timolol (Cosopt) 1 drop BID BOTH EYES Last administered on 08:32; Admin Dose 1 DROP; Start 10/31/16 at 21:00 Miscellaneous Information 1 ea NOTE XX ; Start 11/03/16 at 18:00 Glucagon (Glucagen) 1 mg Q15M PRN IM DECREASED GLUCOSE; Start 11/03/16 at 18:00 Ondansetron HCl (Zofran Inj) 4 mg Q4H PRN IV NAUSEA AND/OR VOMITING Last administered on 11/17/16 08:19; Admin Dose 4 MG; Start 11/04/16 at 23:00 Eye Lubricant (Artificial Tears Oph) 2 drop QID BOTH EYES Last administered on 11/22/16 17:26; Admin Dose 2 DROP; Start 11/07/16 at 09:00 Sodium Biphosphate/ Sodium Phosphate (Fleet Enema) 133 ml DAILY PRN [place] CONSTIPATION; Start 11/07/16 at 19:00 Metoclopramide HCl (Reglan) 5 mg TID IV Last administered on 11/22/16 12:07; Admin Dose 5 MG; Start 11/09/16 at 13:00 Calcium Carbonate (Tums Ex) 750 mg Q6H PRN PO dyspepsia Last administered on 08:12; Admin Dose 750 MG; Start 11/09/16 at 12:30 Morphine Sulfate (morphine) 1 mg Q3H PRN IV pain Last administered on 02:57; Admin Dose 1 MG; Start 11/10/16 at 08:00 Aspirin (Aspirin) 81 mg DAILY GTB Last administered on 11/22/16 08:31; Admin Dose 81 MG; Start 11/12/16 at 19:00 Miscellaneous Information 1 ea NOTE XX ; Start 11/14/16 at 10:00 Glucose (Glutose) 15 gm Q15M PRN PO DECREASED GLUCOSE; Start 11/14/16 at 10:00 Glucose (Glutose) 22.5 gm Q15M PRN PO DECREASED GLUCOSE; Start 11/14/16 at 10: 00 Dextrose (D50w Syringe) 25 ml Q15M PRN IV DECREASED GLUCOSE; Start 11/14/16 at 10:00 Dextrose (D50w Syringe) 50 ml Q15M PRN IV DECREASED GLUCOSE; Start 11/14/16 at 10:00 Glucose (Glutose) 15 gm Q15M PRN BUCCAL DECREASED GLUCOSE; Start 11/14/16 at 10 :00 Insulin Glargine (Lantus) 22 unit DAILY@08 SC Last administered on 11/22/16 08 :34; Admin Dose 22 UNIT; Start 11/17/16 at 08:00 Escitalopram Oxalate (Lexapro) 10 mg DAILY GTB Last administered on 11/22/16 08:32; Admin Dose 10 MG; Start 11/16/16 at 12:30 Insulin Aspart (Novolog Insulin Pen) NOVOLOG *MODERATE* ALGORI... Q4 SC Last administered on 11/22/16 17:33; Admin Dose 6 UNIT; Start 11/18/16 at 09:00 Clopidogrel Bisulfate (plaVIX) 75 mg DAILY GTB Last administered on 11/22/16 08:32; Admin Dose 75 MG; Start 11/18/16 at 13:00 SHAMA LOPEZ MD November 22, 2016 17:56
[2016-11-22] MEDS: morphine 2 MG INJ IV PRN ×2 (18:15→22:06)
[2016-11-22] MEDS: LATANOPROST 0.005% 2.5 ML OPH BOTH EYES SCH (20:43)
[2016-11-23] VITALS (20 sets, daily range): BP systolic 91–112; BP diastolic 43–54; PULSE 78–94; RESP 15–19
[2016-11-23] MEDS: CREON (12k-38k-60k) 1 CAP NGT SCH ×4 (00:18→16:59)
[2016-11-23] MEDS: INSULIN ASPART [NOVOLOG] 3 ML PEN SC SCH ×6 (00:30→21:29)
[2016-11-23] MEDS: IPRATROPIUM (NEB) 0.5 MG/2.5 ML AMP HHN SCH ×4 (01:50→20:41)
[2016-11-23] MEDS: LEVALBUTEROL (NEB) 1.25 MG/0.5 ML AMP HHN SCH ×4 (01:50→20:41)
[2016-11-23] MEDS: METOPROLOL 25 MG TAB PO SCH (09:00)
[2016-11-23] MEDS: ARTIFICIAL TEARS 15 ML OPH BOTH EYES SCH ×4 (09:56→21:26)
[2016-11-23] MEDS: DORZOLAMIDE/TIMOLOL 10 ML OPH BOTH EYES SCH ×2 (09:56→21:26)
[2016-11-23] MEDS: ESCITALOPRAM 10 MG TAB GTB SCH (09:56)
[2016-11-23] MEDS: CALCIUM CARBONATE 500 MG CHEW TAB NGT SCH ×2 (09:56→12:57)
[2016-11-23] MEDS: L ACIDOPHIL/B LACTIS/B LONGUM CAPSULE PO SCH ×2 (09:56→12:57)
[2016-11-23] MEDS: CLOPIDOGREL 75 MG TAB GTB SCH (09:56)
[2016-11-23] MEDS: ASPIRIN 81 MG TAB GTB SCH (09:56)
[2016-11-23] MEDS: METOCLOPRAMIDE 10 MG INJ IV SCH ×3 (09:59→21:24)
[2016-11-23] MEDS: PANTOPRAZOLE 40 MG INJ IV SCH (09:59)
[2016-11-23] MEDS: INSULIN GLARGINE [LANtus] 3 ML PEN SC SCH (10:10)
[2016-11-23 10:38] LABS: ADD SCAN DIFF NO
[2016-11-23 10:47] LABS: BASOPHILS % 0.3 % (0.0-2.0); EOSINOPHILS # 0.1 10^3/ul (0.0-0.5); EOSINOPHILS % 1.2 % (0.0-7.0); HEMATOCRIT 34.2 % (37.0-47.0); LYMPHOCYTES # 1.4 10^3/ul (0.8-2.9); LYMPHOCYTES % 12.4 % (15.0-51.0); MEAN CORPUSCULAR HEMOGLOBIN 29.2 pg (29.0-33.0); MEAN CORPUSCULAR HGB CONC 29.2 g/dl (32.0-37.0); MEAN PLATELET VOLUME 10.4 fl (7.4-10.4); MONOCYTE # 1.2 10^3/ul (0.3-0.9); MONOCYTES % 10.1 % (0.0-11.0); NEUTROPHIL # 8.5 10^3/ul (1.6-7.5); NEUTROPHILS % 74.7 % (39.0-77.0); NUCLEATED RED BLOOD CELLS% 0.3 /100WBC (0.0-0.0); PLATELET COUNT 294 10^3/UL (140-415); RED BLOOD COUNT 3.42 10^6/ul (4.20-5.40); RED CELL DISTRIBUTION WIDTH 19.2 % (11.5-14.5); WHITE BLOOD COUNT 11.4 10^3/ul (4.8-10.8)
[2016-11-23 10:56] LABS: ALBUMIN 2.6 g/dl (3.3-4.9)
[2016-11-23 10:59] LABS: ALBUMIN/GLOBULIN RATIO 0.7; CREATININE 1.46 mg/dl (0.44-1.00); TOTAL PROTEIN 6.3 g/dl (6.1-8.1)
[2016-11-23 11:00] LABS: CALCIUM 8.5 mg/dl (8.4-10.2)
[2016-11-23 11:02] LABS: POTASSIUM 2.7 mmol/L (3.5-5.1)
--- NOTE | 2016-11-23 12:07 | CONS ---
Date/Time of Note Date/Time of Note DATE: 11/23/16 TIME: 11:59 Assessment/Plan Assessment/Plan Problems: (1) Metabolic encephalopathy Status: Chronic Comment: Mild hypokalmia . Will replete k. (2) Acute on chronic renal failure Status: Chronic Comment: remains fluid overloaded on cxr and will plan on dialysis Friday (3) Gangrene Status: Chronic (4) PAD (peripheral artery disease) Status: Chronic Consultation Date/Type/Reason Admit Date/Time Sep 20, 2016 at 19:21 Initial Consult Date 09/23/16 Type of Consultation: Renal Referring Provider: ZANDRA ROBISON MD, [facility] HR Interval Summary Subjective hx not possible: other (lethargic but arouseable and new she is not swallowing and getting tube feedings.) Exam/Review of Systems Vital Signs Vitals Vital Signs Date Time Temp Pulse Resp B/P Pulse Ox O2 Delivery O2 Flow Rate FiO2 11/23/16 08:35 81 11/23/16 08:31 14 94 21 11/23/16 07:32 98.0 96/53 11/22/16 08:00 Nasal Cannula 2.0 Intake and Output 11/22/16 11/22/16 11/23/16 15:00 23:00 07:00 Intake Total 820 ml 440 ml Balance 820 ml 440 ml Exam Constitutional: frail Psych: no complaints Head: normocephalic Respiratory: clear to auscultation Cardiovascular: regular rate and rhythm Gastrointestinal: soft Extremities: other (some gangrenous change of right toe) 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, 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2 Basophils % 0.3 Nucleated Red Blood Cells % 0.3 H Neutrophils # 8.5 H Lymphocytes # 1.4 Monocytes # 1.2 H Eosinophils # 0.1 Basophils # 0.0 Nucleated Red Blood Cells # 0.0 Sodium Level 144 Potassium Level 2.7 *L Chloride Level 103 Carbon Dioxide Level 28 Anion Gap 16 Blood Urea Nitrogen 25 H Creatinine 1.46 H Glucose Level 267 H Calcium Level 8.5 Total Bilirubin 0.0 L Direct Bilirubin 0.00 Indirect Bilirubin 0.0 Aspartate Amino Transf (AST/SGOT) 34 Alanine Aminotransferase (ALT/SGPT) 31 Alkaline Phosphatase 241 H Total Protein 6.3 Albumin 2.6 L Globulin 3.70 H Albumin/Globulin Ratio 0.70 Medications Medications Current Medications Acetaminophen (Tylenol Liquid) 650 mg Q4H PRN NGT PAIN AND OR ELEVATED TEMP Last administered on 11/09/16 11:10; Admin Dose 650 MG; Start 09/21/16 at 02:00 Pantoprazole (Protonix Iv) 40 mg AM IV Last administered on 11/23/16 09:59; Admin Dose 40 MG; Start 09/26/16 at 09:00 Epoetin Raj (Epogen (Esrd)) 10,000 units TuThSa@17 SC Last administered on 17:30; Admin Dose 10,000 UNITS; Start 09/26/16 at 17:00 IV Flush (NS 10 ml) 10 ml PRN PRN IV IV PROTOCOL; Start 09/26/16 at 17:30 Calcium Carbonate (Tums) 500 mg TID NGT Last administered on 11/23/16 09:56; Admin Dose 500 MG; Start 10/15/16 at 21:00 Metoprolol Tartrate (Lopressor) 25 mg BID PO Last administered on 11/22/16 08: 32; Admin Dose 25 MG; Start 10/20/16 at 21:00 Lactulose (Enulose) 20 gm BID PRN PO CONSTIPATION Last administered on 12:57; Admin Dose 20 GM; Start 10/23/16 at 10:30 Lactobacillus Acidophilus (Florajen3 Capsule) 1 each TID PO Last administered on 11/23/16 09:56; Admin Dose 1 EACH; Start 10/25/16 at 13:30 Amylase/Lipase/ Protease (CREON (95x-77c-60m)) 3 cap Q6 NGT Last administered on 11/23/16 05:59; Admin Dose 3 CAP; Start 10/29/16 at 13:00 Latanoprost (Xalatan) 1 drop HS BOTH EYES Last administered on 11/22/16 20:43 ; Admin Dose 1 DROP; Start 10/31/16 at 21:00 Dorzolamide/ Timolol (Cosopt) 1 drop BID BOTH EYES Last administered on 09:56; Admin Dose 1 DROP; Start 10/31/16 at 21:00 Miscellaneous Information 1 ea NOTE XX ; Start 11/03/16 at 18:00 Glucagon (Glucagen) 1 mg Q15M PRN IM DECREASED GLUCOSE; Start 11/03/16 at 18:00 Ondansetron HCl (Zofran Inj) 4 mg Q4H PRN IV NAUSEA AND/OR VOMITING Last administered on 11/17/16 08:19; Admin Dose 4 MG; Start 11/04/16 at 23:00 Eye Lubricant (Artificial Tears Oph) 2 drop QID BOTH EYES Last administered on 11/23/16 09:56; Admin Dose 2 DROP; Start 11/07/16 at 09:00 Sodium Biphosphate/ Sodium Phosphate (Fleet Enema) 133 ml DAILY PRN [place] CONSTIPATION; Start 11/07/16 at 19:00 Metoclopramide HCl (Reglan) 5 mg TID IV Last administered on 11/23/16 09:59; Admin Dose 5 MG; Start 11/09/16 at 13:00 Calcium Carbonate (Tums Ex) 750 mg Q6H PRN PO dyspepsia Last administered on 08:12; Admin Dose 750 MG; Start 11/09/16 at 12:30 Morphine Sulfate (morphine) 1 mg Q3H PRN IV pain Last administered on 22:06; Admin Dose 1 MG; Start 11/10/16 at 08:00 Aspirin (Aspirin) 81 mg DAILY GTB Last administered on 11/23/16 09:56; Admin Dose 81 MG; Start 11/12/16 at 19:00 Miscellaneous Information 1 ea NOTE XX ; Start 11/14/16 at 10:00 Glucose (Glutose) 15 gm Q15M PRN PO DECREASED GLUCOSE; Start 11/14/16 at 10:00 Glucose (Glutose) 22.5 gm Q15M PRN PO DECREASED GLUCOSE; Start 11/14/16 at 10: 00 Dextrose (D50w Syringe) 25 ml Q15M PRN IV DECREASED GLUCOSE; Start 11/14/16 at 10:00 Dextrose (D50w Syringe) 50 ml Q15M PRN IV DECREASED GLUCOSE; Start 11/14/16 at 10:00 Glucose (Glutose) 15 gm Q15M PRN BUCCAL DECREASED GLUCOSE; Start 11/14/16 at 10 :00 Insulin Glargine (Lantus) 22 unit DAILY@08 SC Last administered on 11/23/16 10 :10; Admin Dose 22 UNIT; Start 11/17/16 at 08:00 Escitalopram Oxalate (Lexapro) 10 mg DAILY GTB Last administered on 11/23/16 09:56; Admin Dose 10 MG; Start 11/16/16 at 12:30 Insulin Aspart (Novolog Insulin Pen) NOVOLOG *MODERATE* ALGORI... Q4 SC Last administered on 11/23/16 10:10; Admin Dose 1 UNIT; Start 11/18/16 at 09:00 Clopidogrel Bisulfate (plaVIX) 75 mg DAILY GTB Last administered on 11/23/16 09:56; Admin Dose 75 MG; Start 11/18/16 at 13:00 JOSE SUN MD November 23, 2016 12:07
[2016-11-23] MEDS ORDERED: POTASSIUM CHLORIDE 20 MEQ POWDER FOR ORAL SOLN GTB ONE (12:30)
[2016-11-23] MEDS: morphine 2 MG INJ IV PRN ×2 (16:57→21:47)
[2016-11-23] MEDS: EPOETIN 10000 UNITS/1 ML INJ (ESRD) SC SCH (16:59)
--- NOTE | 2016-11-23 17:41 | PN ---
DATE: 11/23/2016 SUBJECTIVE: The patient is awake and alert. Complains of mild cough. Status post dialysis with re moval of about 2 liters of fluid today. OBJECTIVE: VITAL SIGNS: Temperature 98.0, blood pressure 98/48, pulse of 90, respiration rate 18, O2 saturatio n 98% on room air. HEENT: Pupils equally round, reactive to light. Oropharynx clear. CHEST: Lungs are clear to auscultation anteriorly. CARDIAC: Regular rate and rhythm. ABDOMEN: Active bowel sounds, soft. EXTREMITIES: No clubbing, cyanosis, or edema. Gangrenous toes unchanged. LABORATORY DATA: WBC 11.4, hemoglobin 10.0, hematocrit 34.2, platelet count 294,000. Sodium 144, p otassium 2.7, BUN 25, creatinine 1.46, glucose 257. ASSESSMENT AND PLAN: 1. Status post ST elevation myocardial infarction, still weak with some pulmonary edema. 2. Renal failure with some fluid overload. Continue dialysis. 3. Hypokalemia, status post IV replacement, recheck in a.m. Dictated By: SONALI WALKER MD DP/NTS Conf#: [id number] DID#: [id number]
[2016-11-23] MEDS ORDERED: METOPROLOL 25 MG TAB NGT SCH (21:00)
[2016-11-23] MEDS: CALCIUM CARBONATE 500 MG CHEW TAB PEG SCH (21:24)
[2016-11-23] MEDS: L ACIDOPHIL/B LACTIS/B LONGUM CAPSULE PEG SCH (21:24)
[2016-11-23] MEDS: METOPROLOL 25 MG TAB GTB SCH (21:25)
[2016-11-23] MEDS: LATANOPROST 0.005% 2.5 ML OPH BOTH EYES SCH (21:26)
[2016-11-24] VITALS (11 sets, daily range): BP systolic 102–112; BP diastolic 53–82; PULSE 75–90; RESP 18–19
[2016-11-24] MEDS: CREON (12k-38k-60k) 1 CAP NGT SCH ×5 (00:30→23:59)
[2016-11-24] MEDS: INSULIN ASPART [NOVOLOG] 3 ML PEN SC SCH ×6 (00:40→21:42)
[2016-11-24] MEDS: morphine 2 MG INJ IV PRN (01:40)
[2016-11-24] MEDS: LEVALBUTEROL (NEB) 1.25 MG/0.5 ML AMP HHN SCH ×4 (01:43→19:49)
[2016-11-24] MEDS: IPRATROPIUM (NEB) 0.5 MG/2.5 ML AMP HHN SCH ×4 (01:43→19:49)
--- NOTE | 2016-11-24 06:41 | CONS ---
Date/Time of Note Date/Time of Note DATE: 11/24/16 TIME: 06:36 Consult Date/Type/Reason Admit Date/Time Sep 20, 2016 at 19:21 Initial Consult Date 09/23/16 Type of Consultation: Renal Ordering Provider: [facility]ANDRA ROBISON MD, [facility] Subjective Resting comfortably and no tachypnea. Objective Vital Signs Date Time Temp Pulse Resp B/P Pulse Ox O2 Delivery O2 Flow Rate FiO2 11/24/16 04:45 97.6 76 19 102/53 96 11/24/16 01:45 21 11/22/16 08:00 Nasal Cannula 2.0 Intake and Output 11/23/16 11/23/16 11/24/16 15:00 23:00 07:00 Intake Total 500 ml 950 ml Output Total 4000 ml Balance -3500 ml 950 ml Exam lungs clear anteriroly cor regular no edema Results/Medications Result Diagram: 11/23/16 1033 11/23/16 1033 Results 24 hrs Laboratory Tests Test 11/23/16 09:50 11/23/16 10:33 11/23/16 13:16 11/23/16 17:08 Bedside Glucose 180 307 H 168 White Blood Count 11.4 H Red Blood Count 3.42 L Hemoglobin 10.0 L Hematocrit 34.2 L Mean Corpuscular Volume 100.0 Mean Corpuscular Hemoglobin 29.2 Mean Corpuscular Hemoglobin Concent 29.2 L Red Cell Distribution Width 19.2 H Platelet Count 294 Mean Platelet Volume 10.4 Neutrophils % 74.7 Lymphocytes % 12.4 L Monocytes % 10.1 Eosinophils % 1.2 Basophils % 0.3 Nucleated Red Blood Cells % 0.3 H Neutrophils # 8.5 H Lymphocytes # 1.4 Monocytes # 1.2 H Eosinophils # 0.1 Basophils # 0.0 Nucleated Red Blood Cells # 0.0 Sodium Level 144 Potassium Level 2.7 *L Chloride Level 103 Carbon Dioxide Level 28 Anion Gap 16 Blood Urea Nitrogen 25 H Creatinine 1.46 H Glucose Level 267 H Calcium Level 8.5 Total Bilirubin 0.0 L Direct Bilirubin 0.00 Indirect Bilirubin 0.0 Aspartate Amino Transf (AST/SGOT) 34 Alanine Aminotransferase (ALT/SGPT) 31 Alkaline Phosphatase 241 H Total Protein 6.3 Albumin 2.6 L Globulin 3.70 H Albumin/Globulin Ratio 0.70 Test 11/23/16 21:22 11/24/16 00:36 11/24/16 05:55 Bedside Glucose 153 187 230 H Medications Current Medications Acetaminophen (Tylenol Liquid) 650 mg Q4H PRN NGT PAIN AND OR ELEVATED TEMP Last administered on 11/09/16 11:10; Admin Dose 650 MG; Start 09/21/16 at 02:00 Pantoprazole (Protonix Iv) 40 mg AM IV Last administered on 11/23/16 09:59; Admin Dose 40 MG; Start 09/26/16 at 09:00 Epoetin Raj (Epogen (Esrd)) 10,000 units TuThSa@17 SC Last administered on 16:59; Admin Dose 10,000 UNITS; Start 09/26/16 at 17:00 IV Flush (NS 10 ml) 10 ml PRN PRN IV IV PROTOCOL; Start 09/26/16 at 17:30 Lactulose (Enulose) 20 gm BID PRN PO CONSTIPATION Last administered on 12:57; Admin Dose 20 GM; Start 10/23/16 at 10:30 Amylase/Lipase/ Protease (CREON (12k-38k-60k)) 3 cap Q6 NGT Last administered on 11/24/16 05:54; Admin Dose 3 CAP; Start 10/29/16 at 13:00 Latanoprost (Xalatan) 1 drop HS BOTH EYES Last administered on 11/23/16 21:26 ; Admin Dose 1 DROP; Start 10/31/16 at 21:00 Dorzolamide/ Timolol (Cosopt) 1 drop BID BOTH EYES Last administered on 21:26; Admin Dose 1 DROP; Start 10/31/16 at 21:00 Miscellaneous Information 1 ea NOTE XX ; Start 11/03/16 at 18:00 Glucagon (Glucagen) 1 mg Q15M PRN IM DECREASED GLUCOSE; Start 11/03/16 at 18:00 Ondansetron HCl (Zofran Inj) 4 mg Q4H PRN IV NAUSEA AND/OR VOMITING Last administered on 11/17/16 08:19; Admin Dose 4 MG; Start 11/04/16 at 23:00 Eye Lubricant (Artificial Tears Oph) 2 drop QID BOTH EYES Last administered on 11/23/16 21:26; Admin Dose 2 DROP; Start 11/07/16 at 09:00 Sodium Biphosphate/ Sodium Phosphate (Fleet Enema) 133 ml DAILY PRN [place] CONSTIPATION; Start 11/07/16 at 19:00 Metoclopramide HCl (Reglan) 5 mg TID IV Last administered on 11/23/16 21:24; Admin Dose 5 MG; Start 11/09/16 at 13:00 Calcium Carbonate (Tums Ex) 750 mg Q6H PRN PO dyspepsia Last administered on 08:12; Admin Dose 750 MG; Start 11/09/16 at 12:30 Morphine Sulfate (morphine) 1 mg Q3H PRN IV pain Last administered on 01:40; Admin Dose 1 MG; Start 11/10/16 at 08:00 Aspirin (Aspirin) 81 mg DAILY GTB Last administered on 11/23/16 09:56; Admin Dose 81 MG; Start 11/12/16 at 19:00 Miscellaneous Information 1 ea NOTE XX ; Start 11/14/16 at 10:00 Glucose (Glutose) 15 gm Q15M PRN PO DECREASED GLUCOSE; Start 11/14/16 at 10:00 Glucose (Glutose) 22.5 gm Q15M PRN PO DECREASED GLUCOSE; Start 11/14/16 at 10: 00 Dextrose (D50w Syringe) 25 ml Q15M PRN IV DECREASED GLUCOSE; Start 11/14/16 at 10:00 Dextrose (D50w Syringe) 50 ml Q15M PRN IV DECREASED GLUCOSE; Start 11/14/16 at 10:00 Glucose (Glutose) 15 gm Q15M PRN BUCCAL DECREASED GLUCOSE; Start 11/14/16 at 10 :00 Insulin Glargine (Lantus) 22 unit DAILY@08 SC Last administered on 11/23/16 10 :10; Admin Dose 22 UNIT; Start 11/17/16 at 08:00 Escitalopram Oxalate (Lexapro) 10 mg DAILY GTB Last administered on 11/23/16 09:56; Admin Dose 10 MG; Start 11/16/16 at 12:30 Insulin Aspart (Novolog Insulin Pen) NOVOLOG *MODERATE* ALGORI... Q4 SC Last administered on 11/24/16 06:02; Admin Dose 6 UNIT; Start 11/18/16 at 09:00 Clopidogrel Bisulfate (plaVIX) 75 mg DAILY GTB Last administered on 11/23/16 09:56; Admin Dose 75 MG; Start 11/18/16 at 13:00 Lactobacillus Acidophilus (Florajen3 Capsule) 1 each TID PEG Last administered on 11/23/16 21:24; Admin Dose 1 EACH; Start 11/23/16 at 21:00 Calcium Carbonate (Tums) 500 mg TID PEG Last administered on 11/23/16 21:24; Admin Dose 500 MG; Start 11/23/16 at 21:00 Metoprolol Tartrate (Lopressor) 25 mg BID GTB Last administered on 11/23/16 21 :25; Admin Dose 25 MG; Start 11/23/16 at 21:00 Assessment/Plan Problems: (1) Acute on chronic renal failure (2) Metabolic encephalopathy Additional Assessment/Plan Dialysis tomorrow f/up labs JOSE SUN MD November 24, 2016 06:41
[2016-11-24 06:49] LABS: POTASSIUM 3.9 mmol/L (3.5-5.1)
[2016-11-24 06:52] LABS: CREATININE 1.95 mg/dl (0.44-1.00)
[2016-11-24 06:53] LABS: CALCIUM 8.6 mg/dl (8.4-10.2)
[2016-11-24] MEDS: ARTIFICIAL TEARS 15 ML OPH BOTH EYES SCH ×4 (09:08→21:34)
[2016-11-24] MEDS: CALCIUM CARBONATE 500 MG CHEW TAB PEG SCH ×3 (09:09→21:33)
[2016-11-24] MEDS: DORZOLAMIDE/TIMOLOL 10 ML OPH BOTH EYES SCH ×2 (09:09→21:34)
[2016-11-24] MEDS: L ACIDOPHIL/B LACTIS/B LONGUM CAPSULE PEG SCH ×3 (09:09→21:33)
[2016-11-24] MEDS: METOCLOPRAMIDE 10 MG INJ IV SCH ×3 (09:09→21:32)
[2016-11-24] MEDS: ASPIRIN 81 MG TAB GTB SCH (09:09)
[2016-11-24] MEDS: PANTOPRAZOLE 40 MG INJ IV SCH (09:09)
[2016-11-24] MEDS: CLOPIDOGREL 75 MG TAB GTB SCH (09:10)
[2016-11-24] MEDS: ESCITALOPRAM 10 MG TAB GTB SCH (09:10)
[2016-11-24] MEDS: METOPROLOL 25 MG TAB GTB SCH ×2 (09:10→21:34)
[2016-11-24] MEDS: INSULIN GLARGINE [LANtus] 3 ML PEN SC SCH (09:29)
--- NOTE | 2016-11-24 18:00 | PN ---
DATE: 11/24/2016 SUBJECTIVE: The patient is awake, alert. Reports that she is able to work with physical therapy fo r transferring and mobility. OBJECTIVE: VITAL SIGNS: Temperature 98.0, blood pressure 107/56, pulse of 83, respiration rate 18, O2 saturati on 98% on room air. HEENT: Pupils equally round and reactive. Anicteric sclerae. Oropharynx clear. CHEST: Lungs are clear to auscultation. CARDIAC: Regular rate and rhythm. ABDOMEN: Active bowel sounds, soft, nondistended, nontender. EXTREMITIES: No clubbing or cyanosis or edema. The gangrenous toes are unchanged from before. LABORATORY DATA: The patient's sodium is 141, potassium 3.9, BUN 47, creatinine 1.95. Her glucose has been running between 187 and 260 throughout today. ASSESSMENT AND PLAN: 1. Status post myocardial infarction. Still weak and improving gradually with physical therapy. 2. Renal failure with fluid overload. Continue dialysis. 3. Hypokalemia, corrected after replacement. 4. Hypoglycemia. We will increase insulin glargine from 22 units q.a.m. to 24 units q.a.m. Dictated By: SONALI WALKER MD DP/NTS Conf#: [id number] DID#: [id number] CC: TOVA WRIGHT MD;*[facility]*
[2016-11-24] MEDS: LATANOPROST 0.005% 2.5 ML OPH BOTH EYES SCH (21:34)
[2016-11-25] VITALS (20 sets, daily range): BP systolic 98–146; BP diastolic 48–91; PULSE 76–87; RESP 16–20
[2016-11-25] MEDS: INSULIN ASPART [NOVOLOG] 3 ML PEN SC SCH ×6 (00:03→21:41)
[2016-11-25] MEDS: morphine 2 MG INJ IV PRN (00:10)
[2016-11-25] MEDS: IPRATROPIUM (NEB) 0.5 MG/2.5 ML AMP HHN SCH ×4 (01:43→20:45)
[2016-11-25] MEDS: LEVALBUTEROL (NEB) 1.25 MG/0.5 ML AMP HHN SCH ×4 (01:43→20:45)
[2016-11-25] MEDS: CREON (12k-38k-60k) 1 CAP NGT SCH ×3 (05:23→17:10)
--- NOTE | 2016-11-25 08:05 | CONS ---
Date/Time of Note Date/Time of Note DATE: 11/25/16 TIME: 07:59 Assessment/Plan Assessment/Plan Chief Complaint/Hosp Course 1. Acute Renal Failure due to ATN . She is now on maintenance hemodialysis . She less evidence of volume overload . She is going to have hemodialysis today .Patient could go to Med/surg floor if bed is available and is OK with other doctors . . 2. ALOC , she continues to be very weak and lethargic . But overall better . She is making progress with PT . 3. liver enzyme elevation has resolved.. 4. CHF , she continues to have lung congestion and peripheral edema ; however she is having fluid removed with dialysis and is overall better . 5. hypocalcemia/hypoalbuminemia , calcium is higher 6. anemia , She has no active GI bleeding now. 7. peripheral vascular disease . 8. respiratory failure , pulmonary function has improved . 9 dysphagia , she has a PEG . . Problems: Consultation Date/Type/Reason Admit Date/Time Sep 20, 2016 at 19:21 Initial Consult Date 09/23/16 Type of Consultation: Renal Referring Provider: ZANDRA ROBISON MD, [facility] 24 HR Interval Summary Free Text/Dictation She is lethargic but does rouse to verbal stimuli and is responsive . No complaints . Constitutional: no complaints Exam/Review of Systems Vital Signs Vitals Vital Signs Date Time Temp Pulse Resp B/P Pulse Ox O2 Delivery O2 Flow Rate FiO2 11/25/16 06:56 98.2 74 20 98/48 95 11/25/16 01:43 21 11/22/16 08:00 Nasal Cannula 2.0 Intake and Output 11/24/16 11/24/16 11/25/16 15:00 23:00 07:00 Intake Total 1040 ml 1070 ml 1120 ml Balance 1040 ml 1070 ml 1120 ml Exam Constitutional: alert, obese, oriented Psych: depression, no complaints Respiratory: clear to auscultation, diminished breath sounds Cardiovascular: regular rate and rhythm Gastrointestinal: non-tender, soft Musculoskeletal: nl extremities to inspection Results Result Diagram: 11/23/16 1033 11/24/16 0621 Results 24 hrs Laboratory Tests Test 11/24/16 09:13 11/24/16 13:05 11/24/16 17:11 11/24/16 21:39 Bedside Glucose 249 H 200 182 197 Test 11/25/16 00:01 11/25/16 05:26 Bedside Glucose 159 134 Medications Medications Current Medications Acetaminophen (Tylenol Liquid) 650 mg Q4H PRN NGT PAIN AND OR ELEVATED TEMP Last administered on 11/09/16 11:10; Admin Dose 650 MG; Start 09/21/16 at 02:00 Pantoprazole (Protonix Iv) 40 mg AM IV Last administered on 11/24/16 09:09; Admin Dose 40 MG; Start 09/26/16 at 09:00 Epoetin Raj (Epogen (Esrd)) 10,000 units TuThSa@17 SC Last administered on 16:59; Admin Dose 10,000 UNITS; Start 09/26/16 at 17:00 IV Flush (NS 10 ml) 10 ml PRN PRN IV IV PROTOCOL; Start 09/26/16 at 17:30 Lactulose (Enulose) 20 gm BID PRN PO CONSTIPATION Last administered on 12:57; Admin Dose 20 GM; Start 10/23/16 at 10:30 Amylase/Lipase/ Protease (CREON (12k-38k-60k)) 3 cap Q6 NGT Last administered on 11/25/16 05:23; Admin Dose 3 CAP; Start 10/29/16 at 13:00 Latanoprost (Xalatan) 1 drop HS BOTH EYES Last administered on 11/24/16 21:34 ; Admin Dose 1 DROP; Start 10/31/16 at 21:00 Dorzolamide/ Timolol (Cosopt) 1 drop BID BOTH EYES Last administered on 21:34; Admin Dose 1 DROP; Start 10/31/16 at 21:00 Glucagon (Glucagen) 1 mg Q15M PRN IM DECREASED GLUCOSE; Start 11/03/16 at 18:00 Ondansetron HCl (Zofran Inj) 4 mg Q4H PRN IV NAUSEA AND/OR VOMITING Last administered on 11/17/16 08:19; Admin Dose 4 MG; Start 11/04/16 at 23:00 Eye Lubricant (Artificial Tears Oph) 2 drop QID BOTH EYES Last administered on 11/24/16 21:34; Admin Dose 2 DROP; Start 11/07/16 at 09:00 Sodium Biphosphate/ Sodium Phosphate (Fleet Enema) 133 ml DAILY PRN [place] CONSTIPATION; Start 11/07/16 at 19:00 Metoclopramide HCl (Reglan) 5 mg TID IV Last administered on 11/24/16 21:32; Admin Dose 5 MG; Start 11/09/16 at 13:00 Calcium Carbonate (Tums Ex) 750 mg Q6H PRN PO dyspepsia Last administered on 08:12; Admin Dose 750 MG; Start 11/09/16 at 12:30 Morphine Sulfate (morphine) 1 mg Q3H PRN IV pain Last administered on 00:10; Admin Dose 1 MG; Start 11/10/16 at 08:00 Aspirin (Aspirin) 81 mg DAILY GTB Last administered on 11/24/16 09:09; Admin Dose 81 MG; Start 11/12/16 at 19:00 Miscellaneous Information 1 ea NOTE XX ; Start 11/14/16 at 10:00 Glucose (Glutose) 15 gm Q15M PRN PO DECREASED GLUCOSE; Start 11/14/16 at 10:00 Glucose (Glutose) 22.5 gm Q15M PRN PO DECREASED GLUCOSE; Start 11/14/16 at 10: 00 Dextrose (D50w Syringe) 25 ml Q15M PRN IV DECREASED GLUCOSE; Start 11/14/16 at 10:00 Dextrose (D50w Syringe) 50 ml Q15M PRN IV DECREASED GLUCOSE; Start 11/14/16 at 10:00 Glucose (Glutose) 15 gm Q15M PRN BUCCAL DECREASED GLUCOSE; Start 11/14/16 at 10 :00 Escitalopram Oxalate (Lexapro) 10 mg DAILY GTB Last administered on 11/24/16 09:10; Admin Dose 10 MG; Start 11/16/16 at 12:30 Insulin Aspart (Novolog Insulin Pen) NOVOLOG *MODERATE* ALGORI... Q4 SC Last administered on 11/25/16 00:03; Admin Dose 2 UNIT; Start 11/18/16 at 09:00 Clopidogrel Bisulfate (plaVIX) 75 mg DAILY GTB Last administered on 11/24/16 09:10; Admin Dose 75 MG; Start 11/18/16 at 13:00 Lactobacillus Acidophilus (Florajen3 Capsule) 1 each TID PEG Last administered on 5/21/17at 21:33; Admin Dose 1 EACH; Start 11/23/16 at 21:00 Calcium Carbonate (Tums) 500 mg TID PEG Last administered on 11/24/16 21:33; Admin Dose 500 MG; Start 11/23/16 at 21:00 Metoprolol Tartrate (Lopressor) 25 mg BID GTB Last administered on 11/24/16 21 :34; Admin Dose 25 MG; Start 11/23/16 at 21:00 Insulin Glargine (Lantus) 14 unit DAILY@08 SC ; Start 11/25/16 at 08:00 DAMIR MARTINEZ MD November 25, 2016 08:05
[2016-11-25] MEDS: METOPROLOL 25 MG TAB GTB SCH ×2 (09:00→21:08)
[2016-11-25] MEDS: L ACIDOPHIL/B LACTIS/B LONGUM CAPSULE PEG SCH ×3 (09:00→21:43)
[2016-11-25] MEDS: METOCLOPRAMIDE 10 MG INJ IV SCH ×3 (09:01→21:08)
[2016-11-25] MEDS: PANTOPRAZOLE 40 MG INJ IV SCH (09:03)
[2016-11-25] MEDS: CALCIUM CARBONATE 500 MG CHEW TAB PEG SCH ×3 (09:04→21:05)
[2016-11-25] MEDS: ASPIRIN 81 MG TAB GTB SCH (09:04)
[2016-11-25] MEDS: CLOPIDOGREL 75 MG TAB GTB SCH (09:05)
[2016-11-25] MEDS: ESCITALOPRAM 10 MG TAB GTB SCH (09:05)
[2016-11-25] MEDS: DORZOLAMIDE/TIMOLOL 10 ML OPH BOTH EYES SCH ×2 (09:19→21:44)
[2016-11-25] MEDS: ARTIFICIAL TEARS 15 ML OPH BOTH EYES SCH ×4 (09:19→21:44)
[2016-11-25] MEDS: INSULIN GLARGINE [LANtus] 3 ML PEN SC SCH (09:32)
[2016-11-25 09:38] LABS: ADD SCAN DIFF NO
[2016-11-25 09:40] LABS: BASOPHIL # 0.1 10^3/ul (0.0-0.1); BASOPHILS % 0.6 % (0.0-2.0); EOSINOPHILS # 0.4 10^3/ul (0.0-0.5); EOSINOPHILS % 3.3 % (0.0-7.0); HEMATOCRIT 31.1 % (37.0-47.0); HEMOGLOBIN 9.1 g/dl (12.0-16.0); LYMPHOCYTES # 2.3 10^3/ul (0.8-2.9); LYMPHOCYTES % 21.8 % (15.0-51.0); MEAN CORPUSCULAR HGB CONC 29.3 g/dl (32.0-37.0); MEAN PLATELET VOLUME 10.2 fl (7.4-10.4); MONOCYTE # 1.1 10^3/ul (0.3-0.9); MONOCYTES % 10.6 % (0.0-11.0); NEUTROPHIL # 6.7 10^3/ul (1.6-7.5); NEUTROPHILS % 62.3 % (39.0-77.0); NUCLEATED RED BLOOD CELLS% 0.3 /100WBC (0.0-0.0); PLATELET COUNT 295 10^3/UL (140-415); RED BLOOD COUNT 3.14 10^6/ul (4.20-5.40); RED CELL DISTRIBUTION WIDTH 18.9 % (11.5-14.5); WHITE BLOOD COUNT 10.7 10^3/ul (4.8-10.8)
[2016-11-25 10:15] LABS: ALBUMIN 2.4 g/dl (3.3-4.9); ALBUMIN/GLOBULIN RATIO 0.68; CALCIUM 8.6 mg/dl (8.4-10.2); CREATININE 2.48 mg/dl (0.44-1.00); POTASSIUM 4.3 mmol/L (3.5-5.1); TOTAL PROTEIN 5.9 g/dl (6.1-8.1)
--- NOTE | 2016-11-25 11:13 | CONS ---
Date/Time of Note Date/Time of Note DATE: 11/25/16 TIME: 11:11 Assessment/Plan Assessment/Plan Additional Assessment/Plan Assessment and recommendations; 1. Patient admitted for anemia, status post negative colonoscopy and EGD. Now maintaining stable hematocrit. 2. Chronic renal failure, on hemodialysis. 3. History of hypertension and diabetes. 4. Profound generalized muscular weakness. 5. History of recent respiratory failure due to severe bilateral pneumonia with marked overall clinical improvement from that perspective. Continue current treatment. Consultation Date/Type/Reason Admit Date/Time Sep 20, 2016 at 19:21 Initial Consult Date 09/23/16 Type of Consultation: Renal pulmonary Referring Provider: ZANDRA ROBISON MD, [facility] 24 HR Interval Summary Free Text/Dictation Patient condition is stable. Still exhibiting profound generalized muscular weakness. Patient however has remained hemodynamically stable. General exam; elderly woman, awake alert currently in no distress. Exam/Review of Systems Vital Signs Vitals Vital Signs Date Time Temp Pulse Resp B/P Pulse Ox O2 Delivery O2 Flow Rate FiO2 11/25/16 08:12 76 11/25/16 08:04 20 95 21 11/25/16 06:56 98.2 98/48 11/22/16 08:00 Nasal Cannula 2.0 Intake and Output 11/24/16 11/24/16 11/25/16 15:00 23:00 07:00 Intake Total 1040 ml 1070 ml 1120 ml Balance 1040 ml 1070 ml 1120 ml Exam HEENT exam is; supple neck, no JVD. No lymphadenopathy. Midline trachea. No thyromegaly. Pharynx is clear. Chest examination; clear to auscultation. S1-S2 audible, no murmurs. Regular rhythm. Abdomen examination; no distention. No organomegaly. Bowel sounds audible. Extremity exam; no peripheral edema. Patient does have multiple well-healed ecchymosis involving all 4 extremities. BUOY TENDER examination; no obvious focal motor deficit, however patient does have generalized muscular weakness. Results Result Diagram: 11/25/16 0930 11/25/16 0930 Results 24 hrs Laboratory Tests Test 11/24/16 13:05 11/24/16 17:11 11/24/16 21:39 11/25/16 00:01 Bedside Glucose 200 182 197 159 Test 11/25/16 05:26 11/25/16 09:25 11/25/16 09:30 Bedside Glucose 134 161 White Blood Count 10.7 Red Blood Count 3.14 L Hemoglobin 9.1 L Hematocrit 31.1 L Mean Corpuscular Volume 99.0 Mean Corpuscular Hemoglobin 29.0 Mean Corpuscular Hemoglobin Concent 29.3 L Red Cell Distribution Width 18.9 H Platelet Count 295 Mean Platelet Volume 10.2 Neutrophils % 62.3 Lymphocytes % 21.8 Monocytes % 10.6 Eosinophils % 3.3 Basophils % 0.6 Nucleated Red Blood Cells % 0.3 H Neutrophils # 6.7 Lymphocytes # 2.3 Monocytes # 1.1 H Eosinophils # 0.4 Basophils # 0.1 Nucleated Red Blood Cells # 0.0 Sodium Level 138 Potassium Level 4.3 Chloride Level 101 Carbon Dioxide Level 30 Anion Gap 11 Blood Urea Nitrogen 64 H Creatinine 2.48 H Glucose Level 178 Calcium Level 8.6 Total Bilirubin 0.0 L Direct Bilirubin 0.00 Indirect Bilirubin 0.0 Aspartate Amino Transf (AST/SGOT) 32 Alanine Aminotransferase (ALT/SGPT) 33 Alkaline Phosphatase 200 H Total Protein 5.9 L Albumin 2.4 L Globulin 3.50 H Albumin/Globulin Ratio 0.68 Medications Medications Current Medications Acetaminophen (Tylenol Liquid) 650 mg Q4H PRN NGT PAIN AND OR ELEVATED TEMP Last administered on 11/09/16 11:10; Admin Dose 650 MG; Start 09/21/16 at 02:00 Pantoprazole (Protonix Iv) 40 mg AM IV Last administered on 11/25/16 09:03; Admin Dose 40 MG; Start 09/26/16 at 09:00 Epoetin Raj (Epogen (Esrd)) 10,000 units TuThSa@17 SC Last administered on 16:59; Admin Dose 10,000 UNITS; Start 09/26/16 at 17:00 IV Flush (NS 10 ml) 10 ml PRN PRN IV IV PROTOCOL; Start 09/26/16 at 17:30 Lactulose (Enulose) 20 gm BID PRN PO CONSTIPATION Last administered on 12:57; Admin Dose 20 GM; Start 10/23/16 at 10:30 Amylase/Lipase/ Protease (CREON (12k-96k-60k)) 3 cap Q6 NGT Last administered on 11/25/16 05:23; Admin Dose 3 CAP; Start 10/29/16 at 13:00 Latanoprost (Xalatan) 1 drop HS BOTH EYES Last administered on 11/24/16 21:34 ; Admin Dose 1 DROP; Start 10/31/16 at 21:00 Dorzolamide/ Timolol (Cosopt) 1 drop BID BOTH EYES Last administered on 09:19; Admin Dose 1 DROP; Start 10/31/16 at 21:00 Glucagon (Glucagen) 1 mg Q15M PRN IM DECREASED GLUCOSE; Start 11/03/16 at 18:00 Ondansetron HCl (Zofran Inj) 4 mg Q4H PRN IV NAUSEA AND/OR VOMITING Last administered on 11/17/16 08:19; Admin Dose 4 MG; Start 11/04/16 at 23:00 Eye Lubricant (Artificial Tears Oph) 2 drop QID BOTH EYES Last administered on 11/25/16 09:19; Admin Dose 2 DROP; Start 11/07/16 at 09:00 Sodium Biphosphate/ Sodium Phosphate (Fleet Enema) 133 ml DAILY PRN [place] CONSTIPATION; Start 11/07/16 at 19:00 Metoclopramide HCl (Reglan) 5 mg TID IV Last administered on 11/25/16 09:01; Admin Dose 5 MG; Start 11/09/16 at 13:00 Calcium Carbonate (Tums Ex) 750 mg Q6H PRN PO dyspepsia Last administered on 08:12; Admin Dose 750 MG; Start 11/09/16 at 12:30 Morphine Sulfate (morphine) 1 mg Q3H PRN IV pain Last administered on 00:10; Admin Dose 1 MG; Start 11/10/16 at 08:00 Aspirin (Aspirin) 81 mg DAILY GTB Last administered on 11/25/16 09:04; Admin Dose 81 MG; Start 11/12/16 at 19:00 Miscellaneous Information 1 ea NOTE XX ; Start 11/14/16 at 10:00 Glucose (Glutose) 15 gm Q15M PRN PO DECREASED GLUCOSE; Start 11/14/16 at 10:00 Glucose (Glutose) 22.5 gm Q15M PRN PO DECREASED GLUCOSE; Start 11/14/16 at 10: 00 Dextrose (D50w Syringe) 25 ml Q15M PRN IV DECREASED GLUCOSE; Start 11/14/16 at 10:00 Dextrose (D50w Syringe) 50 ml Q15M PRN IV DECREASED GLUCOSE; Start 11/14/16 at 10:00 Glucose (Glutose) 15 gm Q15M PRN BUCCAL DECREASED GLUCOSE; Start 11/14/16 at 10 :00 Escitalopram Oxalate (Lexapro) 10 mg DAILY GTB Last administered on 11/25/16 09:05; Admin Dose 10 MG; Start 11/16/16 at 12:30 Insulin Aspart (Novolog Insulin Pen) NOVOLOG *MODERATE* ALGORI... Q4 SC Last administered on 11/25/16 09:32; Admin Dose 2 UNIT; Start 11/18/16 at 09:00 Clopidogrel Bisulfate (plaVIX) 75 mg DAILY GTB Last administered on 11/25/16 09:05; Admin Dose 75 MG; Start 11/18/16 at 13:00 Lactobacillus Acidophilus (Florajen3 Capsule) 1 each TID PEG Last administered on 11/24/16 21:33; Admin Dose 1 EACH; Start 11/23/16 at 21:00 Calcium Carbonate (Tums) 500 mg TID PEG Last administered on 11/25/16 09:04; Admin Dose 500 MG; Start 11/23/16 at 21:00 Metoprolol Tartrate (Lopressor) 25 mg BID GTB Last administered on 11/24/16 21 :34; Admin Dose 25 MG; Start 11/23/16 at 21:00 Insulin Glargine (Lantus) 14 unit DAILY@08 SC Last administered on 11/25/16 09 :32; Admin Dose 14 UNIT; Start 11/25/16 at 08:00 ADIS CAMACHO November 25, 2016 11:13
--- NOTE | 2016-11-25 12:21 | CONS ---
DATE OF ADMISSION: 09/20/2016 DATE OF CONSULTATION: HISTORY OF PRESENT ILLNESS: The patient is a 71-year-old white female seen by me because of GI blee ding and at this time, she is alert, she is not significantly verbalizing. PHYSICAL EXAMINATION: GENERAL: On examination, she is alert abdomen is soft VITAL SIGNS: Blood pressure is 138/78, pulse is 92. CARDIOVASCULAR EXAMINATION: Normal heart sounds. RESPIRATORY: Normal breath sounds. ABDOMEN: Shows soft abdomen. LABORATORY WORKUP: Hemoglobin 9.3. CLINICAL IMPRESSION: 1. She has a gastric ulcer which is not actively bleeding at this time. 2. Status post respiratory failure. PLAN: At this time, continue Protonix. Dictated By: CIELO SANCHEZ MD NC/NTS Conf#: [id number] DID#: [id number] CC: SHAMA LOPEZ MD;*EndCC*
--- NOTE | 2016-11-25 13:17 | RADRPT ---
PROCEDURE: XR Chest. CLINICAL INDICATION: CHF. TECHNIQUE: Single frontal view of the chest was obtained. COMPARISON: Chest x-ray 10/08/2016 10:22 a.m. FINDINGS: The soft tissues are normal. There are degenerative osteophytes in the thoracic spine. A PICC line catheter enters the left arm with its tip in the superior vena cava at the junction with the right atrium. The heart is enlarged. cardiomediastinal silhouette and hilar structures are normal. The p ulmonary vasculature is increased. There are vascular calcifications in the aortic arch. The endot martine tube and NG tube seen on the prior study were removed. There are perihilar and basilar infil trates. There are bilateral pleural effusions. IMPRESSION: 1. Cardiomegaly with congestive heart failure and perihilar and basilar interstitial and alveolar pu lmonary edema bilateral pleural effusions consistent with CHF. 2. Atherosclerosis of the aortic arch. 3. Interval placement of a dialysis catheter enters from a right internal jugular approach with its tip in the right atrium with no pneumothorax identified. 4. Status post removal of the endotracheal tube and NG tube seen on the earlier study. 5. A PICC line catheter remains in stable position with its tip at the right atrial superior vena c blayne junction. RPTAT:AAJJ Physician Danie Date Time Electronically viewed and signed by Physician Danie on 11/25/2016 13:17 JM/
[2016-11-25 21:35] LABS: THYROID STIMULATING HORMONE 3.83 MIU/L (0.465-4.680)
[2016-11-25] MEDS: LATANOPROST 0.005% 2.5 ML OPH BOTH EYES SCH (21:43)
[2016-11-26] MEDS: CREON (12k-38k-60k) 1 CAP NGT SCH ×5 (00:14→23:51)
[2016-11-26] MEDS: INSULIN ASPART [NOVOLOG] 3 ML PEN SC SCH ×6 (01:00→20:49)
[2016-11-26] MEDS: IPRATROPIUM (NEB) 0.5 MG/2.5 ML AMP HHN SCH ×4 (02:00→19:58)
[2016-11-26] MEDS: LEVALBUTEROL (NEB) 1.25 MG/0.5 ML AMP HHN SCH ×4 (02:00→19:58)
[2016-11-26 07:18] VITALS: BP 102/74; RESP 18
--- NOTE | 2016-11-26 08:26 | CONS ---
Date/Time of Note Date/Time of Note DATE: 11/26/16 TIME: 08:23 Assessment/Plan Assessment/Plan Chief Complaint/Hosp Course 1. Acute Renal Failure due to ATN . She is now on maintenance hemodialysis . She has less evidence of volume overload . She is going to have Dry Ultrafitration today and hemodialysis tomorrow . She is now on Med/Surg. . 2. ALOC , she continues to be very weak and lethargic . But overall better . She is making progress with PT . 3. liver enzyme elevation has resolved.. 4. CHF , she continues to have lung congestion and peripheral edema ; however she is having fluid removed with dialysis and is overall better . 5. hypocalcemia/hypoalbuminemia , calcium is higher 6. anemia , She has no active GI bleeding now. 7. peripheral vascular disease . 8. respiratory failure , pulmonary function has improved . 9 dysphagia , she has a PEG . . Problems: Consultation Date/Type/Reason Admit Date/Time Sep 20, 2016 at 19:21 Initial Consult Date 09/23/16 Type of Consultation: renal Referring Provider: ZANDRA ROBISON MD, [facility] 24 HR Interval Summary Free Text/Dictation She is awake an responsive . She says that she wants to go home . Constitutional: no complaints Exam/Review of Systems Vital Signs Vitals Vital Signs Date Time Temp Pulse Resp B/P Pulse Ox O2 Delivery O2 Flow Rate FiO2 11/26/16 07:22 94 16 90 21 11/26/16 07:18 97.8 102/74 11/22/16 08:00 Nasal Cannula 2.0 Intake and Output 11/25/16 11/25/16 11/26/16 15:00 23:00 07:00 Intake Total 500 ml 820 ml Output Total 3500 ml Balance -3000 ml 820 ml Exam Constitutional: alert, frail Respiratory: clear to auscultation, diminished breath sounds Cardiovascular: regular rate and rhythm Gastrointestinal: non-tender, soft Musculoskeletal: nl extremities to inspection Results Result Diagram: 11/25/16 0930 11/25/16 0930 Results 24 hrs Laboratory Tests Test 11/25/16 09:25 11/25/16 09:30 11/25/16 12:01 11/25/16 17:08 Bedside Glucose 161 205 264 H White Blood Count 10.7 Red Blood Count 3.14 L Hemoglobin 9.1 L Hematocrit 31.1 L Mean Corpuscular Volume 99.0 Mean Corpuscular Hemoglobin 29.0 Mean Corpuscular Hemoglobin Concent 29.3 L Red Cell Distribution Width 18.9 H Platelet Count 295 Mean Platelet Volume 10.2 Neutrophils % 62.3 Lymphocytes % 21.8 Monocytes % 10.6 Eosinophils % 3.3 Basophils % 0.6 Nucleated Red Blood Cells % 0.3 H Neutrophils # 6.7 Lymphocytes # 2.3 Monocytes # 1.1 H Eosinophils # 0.4 Basophils # 0.1 Nucleated Red Blood Cells # 0.0 Sodium Level 138 Potassium Level 4.3 Chloride Level 101 Carbon Dioxide Level 30 Anion Gap 11 Blood Urea Nitrogen 64 H Creatinine 2.48 H Glucose Level 178 Calcium Level 8.6 Total Bilirubin 0.0 L Direct Bilirubin 0.00 Indirect Bilirubin 0.0 Aspartate Amino Transf (AST/SGOT) 32 Alanine Aminotransferase (ALT/SGPT) 33 Alkaline Phosphatase 200 H Total Protein 5.9 L Albumin 2.4 L Globulin 3.50 H Albumin/Globulin Ratio 0.68 Test 11/25/16 20:30 11/25/16 21:12 11/26/16 01:11 11/26/16 04:58 Thyroid Stimulating Hormone (TSH) 3.830 Random Cortisol 28.2 Bedside Glucose 147 139 243 H Medications Medications Current Medications Acetaminophen (Tylenol Liquid) 650 mg Q4H PRN NGT PAIN AND OR ELEVATED TEMP Last administered on 11/09/16 11:10; Admin Dose 650 MG; Start 09/21/16 at 02:00 Pantoprazole (Protonix Iv) 40 mg AM IV Last administered on 11/25/16 09:03; Admin Dose 40 MG; Start 09/26/16 at 09:00 Epoetin Raj (Epogen (Esrd)) 10,000 units TuThSa@17 SC Last administered on 16:59; Admin Dose 10,000 UNITS; Start 09/26/16 at 17:00 IV Flush (NS 10 ml) 10 ml PRN PRN IV IV PROTOCOL; Start 09/26/16 at 17:30 Lactulose (Enulose) 20 gm BID PRN PO CONSTIPATION Last administered on 12:57; Admin Dose 20 GM; Start 10/23/16 at 10:30 Amylase/Lipase/ Protease (CREON (12k-38k-60k)) 3 cap Q6 NGT Last administered on 11/26/16 05:59; Admin Dose 3 CAP; Start 10/29/16 at 13:00 Latanoprost (Xalatan) 1 drop HS BOTH EYES Last administered on 11/25/16 21:43 ; Admin Dose 1 DROP; Start 10/31/16 at 21:00 Dorzolamide/ Timolol (Cosopt) 1 drop BID BOTH EYES Last administered on 21:44; Admin Dose 1 DROP; Start 10/31/16 at 21:00 Glucagon (Glucagen) 1 mg Q15M PRN IM DECREASED GLUCOSE; Start 11/03/16 at 18:00 Ondansetron HCl (Zofran Inj) 4 mg Q4H PRN IV NAUSEA AND/OR VOMITING Last administered on 11/17/16 08:19; Admin Dose 4 MG; Start 11/04/16 at 23:00 Eye Lubricant (Artificial Tears Oph) 2 drop QID BOTH EYES Last administered on 11/25/16 21:44; Admin Dose 2 DROP; Start 11/07/16 at 09:00 Sodium Biphosphate/ Sodium Phosphate (Fleet Enema) 133 ml DAILY PRN [place] CONSTIPATION; Start 11/07/16 at 19:00 Metoclopramide HCl (Reglan) 5 mg TID IV Last administered on 11/25/16 21:08; Admin Dose 5 MG; Start 11/09/16 at 13:00 Calcium Carbonate (Tums Ex) 750 mg Q6H PRN PO dyspepsia Last administered on 08:12; Admin Dose 750 MG; Start 11/09/16 at 12:30 Morphine Sulfate (morphine) 1 mg Q3H PRN IV pain Last administered on 00:10; Admin Dose 1 MG; Start 11/10/16 at 08:00 Aspirin (Aspirin) 81 mg DAILY GTB Last administered on 11/25/16 09:04; Admin Dose 81 MG; Start 11/12/16 at 19:00 Miscellaneous Information 1 ea NOTE XX ; Start 11/14/16 at 10:00 Glucose (Glutose) 15 gm Q15M PRN PO DECREASED GLUCOSE; Start 11/14/16 at 10:00 Glucose (Glutose) 22.5 gm Q15M PRN PO DECREASED GLUCOSE; Start 11/14/16 at 10: 00 Dextrose (D50w Syringe) 25 ml Q15M PRN IV DECREASED GLUCOSE; Start 11/14/16 at 10:00 Dextrose (D50w Syringe) 50 ml Q15M PRN IV DECREASED GLUCOSE; Start 11/14/16 at 10:00 Glucose (Glutose) 15 gm Q15M PRN BUCCAL DECREASED GLUCOSE; Start 11/14/16 at 10 :00 Escitalopram Oxalate (Lexapro) 10 mg DAILY GTB Last administered on 11/25/16 09:05; Admin Dose 10 MG; Start 11/16/16 at 12:30 Insulin Aspart (Novolog Insulin Pen) NOVOLOG *MODERATE* ALGORI... Q4 SC Last administered on 11/26/16 05:41; Admin Dose 6 UNIT; Start 11/18/16 at 09:00 Clopidogrel Bisulfate (plaVIX) 75 mg DAILY GTB Last administered on 11/25/16 09:05; Admin Dose 75 MG; Start 11/18/16 at 13:00 Lactobacillus Acidophilus (Florajen3 Capsule) 1 each TID PEG Last administered on 11/25/16 21:43; Admin Dose 1 EACH; Start 11/23/16 at 21:00 Calcium Carbonate (Tums) 500 mg TID PEG Last administered on 11/25/16 21:05; Admin Dose 500 MG; Start 11/23/16 at 21:00 Metoprolol Tartrate (Lopressor) 25 mg BID GTB Last administered on 11/25/16 21 :08; Admin Dose 25 MG; Start 11/23/16 at 21:00 Insulin Glargine (Lantus) 14 unit DAILY@08 SC Last administered on 11/25/16 09 :32; Admin Dose 14 UNIT; Start 11/25/16 at 08:00 DAMIR MARTINEZ MD November 26, 2016 08:26
[2016-11-26] MEDS: PANTOPRAZOLE 40 MG INJ IV SCH (09:09)
[2016-11-26] MEDS: ARTIFICIAL TEARS 15 ML OPH BOTH EYES SCH ×4 (09:09→20:43)
[2016-11-26] MEDS: DORZOLAMIDE/TIMOLOL 10 ML OPH BOTH EYES SCH ×2 (09:09→20:44)
[2016-11-26] MEDS: ASPIRIN 81 MG TAB GTB SCH (09:10)
[2016-11-26] MEDS: METOCLOPRAMIDE 10 MG INJ IV SCH ×3 (09:10→20:43)
[2016-11-26] MEDS: CLOPIDOGREL 75 MG TAB GTB SCH (09:10)
[2016-11-26] MEDS: ESCITALOPRAM 10 MG TAB GTB SCH (09:10)
[2016-11-26] MEDS: METOPROLOL 25 MG TAB GTB SCH ×2 (09:10→20:44)
[2016-11-26] MEDS: CALCIUM CARBONATE 500 MG CHEW TAB PEG SCH ×3 (09:11→20:43)
[2016-11-26] MEDS: INSULIN GLARGINE [LANtus] 3 ML PEN SC SCH (09:15)
[2016-11-26] MEDS: L ACIDOPHIL/B LACTIS/B LONGUM CAPSULE PEG SCH ×3 (09:15→22:27)
--- NOTE | 2016-11-26 12:53 | PN ---
Date/Time of Note Date/Time of Note DATE: 11/25/16 TIME: 12:37 Assessment/Plan VTE Prophylaxis VTE Prophylaxis Intervention: other (asa, plavix) Lines/Catheters IV Catheter Type (from Nrsg): PICC Line Central line still needed: No Urinary Cath still in place: No Assessment/Plan Assessment/Plan 1. cad/htn/ pad/ anticoag 2. rld/ pulm effusion 3. arf/ edema/ anemia 4. dm 5. musc weak/ peg feed dep/ weak coughs 6. depression ---per cards ---per pulm ---per renal ---transfer to med surg floor bed ok ---cont all supportive cares inc pt/ ot/ st ---replace all supps Subjective 24 Hr Interval Summary Free Text/Dictation tired, still w/ wet coughs, still not out of bed depressed SHAMA LOPEZ MD November 26, 2016 12:47
--- NOTE | 2016-11-26 12:59 | PN ---
Date/Time of Note Date/Time of Note DATE: 11/26/16 TIME: 12:53 Assessment/Plan VTE Prophylaxis VTE Prophylaxis Intervention: other (asa, plavix) Lines/Catheters IV Catheter Type (from Nrsg): PICC Line Central line still needed: No Urinary Cath still in place: No Assessment/Plan Assessment/Plan 1. cad/ htn/ pad/ anticoag 2. rld/ pulm effusion 3. arf/ edema/ anemia--dialysis prn 4. dm 5. weak coughs/ musc strength--peg feed dep, pt/ot 6. depression ---per cards ---per pulm ---per renal ---inc aggressive pt/ot oob ---prep after hosp, rehab snf full care program Subjective 24 Hr Interval Summary Free Text/Dictation getting better too slow, tired Exam/Review of Systems Vital Signs Vitals Vital Signs Date Time Temp Pulse Resp B/P Pulse Ox O2 Delivery O2 Flow Rate FiO2 11/26/16 07:22 94 16 90 21 11/26/16 07:18 97.8 102/74 11/22/16 08:00 Nasal Cannula 2.0 Intake and Output 11/25/16 11/25/16 11/26/16 15:00 23:00 07:00 Intake Total 500 ml 820 ml Output Total 3500 ml Balance -3000 ml 820 ml Exam obese+, lying in bed+, weak speech/ coughs+ dec bs bibasilar+ rr toes blue black+ Results Result Diagram: 11/25/16 0930 11/25/16 0930 Results 24 hrs Laboratory Tests Test 11/25/16 17:08 11/25/16 20:30 11/25/16 21:12 11/26/16 01:11 Bedside Glucose 264 H 147 139 Thyroid Stimulating Hormone (TSH) 3.830 Random Cortisol 28.2 Test 11/26/16 04:58 11/26/16 09:09 Bedside Glucose 243 H 253 H Medications Medications Current Medications Acetaminophen (Tylenol Liquid) 650 mg Q4H PRN NGT PAIN AND OR ELEVATED TEMP Last administered on 11/09/16 11:10; Admin Dose 650 MG; Start 09/21/16 at 02:00 Pantoprazole (Protonix Iv) 40 mg AM IV Last administered on 11/26/16 09:09; Admin Dose 40 MG; Start 09/26/16 at 09:00 Epoetin Raj (Epogen (Esrd)) 10,000 units TuThSa@17 SC Last administered on 16:59; Admin Dose 10,000 UNITS; Start 09/26/16 at 17:00 IV Flush (NS 10 ml) 10 ml PRN PRN IV IV PROTOCOL; Start 09/26/16 at 17:30 Lactulose (Enulose) 20 gm BID PRN PO CONSTIPATION Last administered on 12:57; Admin Dose 20 GM; Start 10/23/16 at 10:30 Amylase/Lipase/ Protease (CREON (12k-38k-60k)) 3 cap Q6 NGT Last administered on 11/26/16 05:59; Admin Dose 3 CAP; Start 10/29/16 at 13:00 Latanoprost (Xalatan) 1 drop HS BOTH EYES Last administered on 11/25/16 21:43 ; Admin Dose 1 DROP; Start 10/31/16 at 21:00 Dorzolamide/ Timolol (Cosopt) 1 drop BID BOTH EYES Last administered on 09:09; Admin Dose 1 DROP; Start 10/31/16 at 21:00 Glucagon (Glucagen) 1 mg Q15M PRN IM DECREASED GLUCOSE; Start 11/03/16 at 18:00 Ondansetron HCl (Zofran Inj) 4 mg Q4H PRN IV NAUSEA AND/OR VOMITING Last administered on 11/17/16 08:19; Admin Dose 4 MG; Start 11/04/16 at 23:00 Eye Lubricant (Artificial Tears Oph) 2 drop QID BOTH EYES Last administered on 11/26/16 09:09; Admin Dose 2 DROP; Start 11/07/16 at 09:00 Sodium Biphosphate/ Sodium Phosphate (Fleet Enema) 133 ml DAILY PRN [place] CONSTIPATION; Start 11/07/16 at 19:00 Metoclopramide HCl (Reglan) 5 mg TID IV Last administered on 11/26/16 09:10; Admin Dose 5 MG; Start 11/09/16 at 13:00 Calcium Carbonate (Tums Ex) 750 mg Q6H PRN PO dyspepsia Last administered on 08:12; Admin Dose 750 MG; Start 11/09/16 at 12:30 Morphine Sulfate (morphine) 1 mg Q3H PRN IV pain Last administered on 00:10; Admin Dose 1 MG; Start 11/10/16 at 08:00 Aspirin (Aspirin) 81 mg DAILY GTB Last administered on 11/26/16 09:10; Admin Dose 81 MG; Start 11/12/16 at 19:00 Miscellaneous Information 1 ea NOTE XX ; Start 11/14/16 at 10:00 Glucose (Glutose) 15 gm Q15M PRN PO DECREASED GLUCOSE; Start 11/14/16 at 10:00 Glucose (Glutose) 22.5 gm Q15M PRN PO DECREASED GLUCOSE; Start 11/14/16 at 10: 00 Dextrose (D50w Syringe) 25 ml Q15M PRN IV DECREASED GLUCOSE; Start 11/14/16 at 10:00 Dextrose (D50w Syringe) 50 ml Q15M PRN IV DECREASED GLUCOSE; Start 11/14/16 at 10:00 Glucose (Glutose) 15 gm Q15M PRN BUCCAL DECREASED GLUCOSE; Start 11/14/16 at 10 :00 Escitalopram Oxalate (Lexapro) 10 mg DAILY GTB Last administered on 11/26/16 09:10; Admin Dose 10 MG; Start 11/16/16 at 12:30 Insulin Aspart (Novolog Insulin Pen) NOVOLOG *MODERATE* ALGORI... Q4 SC Last administered on 11/26/16 09:16; Admin Dose 6 UNIT; Start 11/18/16 at 09:00 Clopidogrel Bisulfate (plaVIX) 75 mg DAILY GTB Last administered on 11/26/16 09:10; Admin Dose 75 MG; Start 11/18/16 at 13:00 Lactobacillus Acidophilus (Florajen3 Capsule) 1 each TID PEG Last administered on 11/26/16 09:15; Admin Dose 1 EACH; Start 11/23/16 at 21:00 Calcium Carbonate (Tums) 500 mg TID PEG Last administered on 11/26/16 09:11; Admin Dose 500 MG; Start 11/23/16 at 21:00 Metoprolol Tartrate (Lopressor) 25 mg BID GTB Last administered on 11/26/16 09 :10; Admin Dose 25 MG; Start 11/23/16 at 21:00 Insulin Glargine (Lantus) 14 unit DAILY@08 SC Last administered on 11/26/16t 09 :15; Admin Dose 14 UNIT; Start 11/25/16 at 08:00 SHAMA LOPEZ MD November 26, 2016 12:59
[2016-11-26] MEDS: EPOETIN 10000 UNITS/1 ML INJ (ESRD) SC SCH (17:58)
[2016-11-26 20:06] VITALS: BP 108/56; RESP 20
[2016-11-26] MEDS: LATANOPROST 0.005% 2.5 ML OPH BOTH EYES SCH (20:44)
[2016-11-27] VITALS (13 sets, daily range): BP systolic 92–113; BP diastolic 48–67; PULSE 73–78; RESP 18–20
[2016-11-27] MEDS: INSULIN ASPART [NOVOLOG] 3 ML PEN SC SCH ×6 (01:00→21:07)
[2016-11-27] MEDS: IPRATROPIUM (NEB) 0.5 MG/2.5 ML AMP HHN SCH ×4 (01:26→19:33)
[2016-11-27] MEDS: LEVALBUTEROL (NEB) 1.25 MG/0.5 ML AMP HHN SCH ×4 (01:26→19:33)
[2016-11-27] MEDS: CREON (12k-38k-60k) 1 CAP NGT SCH ×3 (05:31→17:32)
[2016-11-27 05:52] LABS: ADD SCAN DIFF NO
[2016-11-27 06:02] LABS: BASOPHIL # 0.1 10^3/ul (0.0-0.1); BASOPHILS % 0.4 % (0.0-2.0); EOSINOPHILS # 0.5 10^3/ul (0.0-0.5); EOSINOPHILS % 3.4 % (0.0-7.0); HEMATOCRIT 30.6 % (37.0-47.0); HEMOGLOBIN 8.9 g/dl (12.0-16.0); LYMPHOCYTES # 3.2 10^3/ul (0.8-2.9); LYMPHOCYTES % 24.4 % (15.0-51.0); MEAN CORPUSCULAR HEMOGLOBIN 28.3 pg (29.0-33.0); MEAN CORPUSCULAR HGB CONC 29.1 g/dl (32.0-37.0); MEAN CORPUSCULAR VOLUME 97.1 fl (82.0-101.0); MEAN PLATELET VOLUME 10.4 fl (7.4-10.4); MONOCYTE # 1.5 10^3/ul (0.3-0.9); NEUTROPHIL # 7.7 10^3/ul (1.6-7.5); NEUTROPHILS % 58.8 % (39.0-77.0); PLATELET COUNT 258 10^3/UL (140-415); RED BLOOD COUNT 3.15 10^6/ul (4.20-5.40); RED CELL DISTRIBUTION WIDTH 18.5 % (11.5-14.5); WHITE BLOOD COUNT 13.1 10^3/ul (4.8-10.8)
[2016-11-27 06:31] LABS: POTASSIUM 4.9 mmol/L (3.5-5.1)
[2016-11-27 06:33] LABS: CREATININE 3.28 mg/dl (0.44-1.00)
[2016-11-27 06:34] LABS: CALCIUM 8.6 mg/dl (8.4-10.2); MAGNESIUM 3.1 mg/dl (1.7-2.5)
[2016-11-27] MEDS: METOPROLOL 25 MG TAB GTB SCH ×2 (09:00→21:00)
[2016-11-27] MEDS: L ACIDOPHIL/B LACTIS/B LONGUM CAPSULE PEG SCH ×3 (09:00→21:10)
[2016-11-27] MEDS: PANTOPRAZOLE 40 MG INJ IV SCH (09:21)
[2016-11-27] MEDS: CALCIUM CARBONATE 750 MG CHEW TAB PO PRN (09:22)
[2016-11-27] MEDS: ASPIRIN 81 MG TAB GTB SCH (09:22)
[2016-11-27] MEDS: ESCITALOPRAM 10 MG TAB GTB SCH (09:22)
[2016-11-27] MEDS: METOCLOPRAMIDE 10 MG INJ IV SCH ×3 (09:22→21:09)
[2016-11-27] MEDS: CLOPIDOGREL 75 MG TAB GTB SCH (09:22)
[2016-11-27] MEDS: CALCIUM CARBONATE 500 MG CHEW TAB PEG SCH ×3 (09:22→21:10)
[2016-11-27] MEDS: DORZOLAMIDE/TIMOLOL 10 ML OPH BOTH EYES SCH ×2 (09:23→21:08)
[2016-11-27] MEDS: ARTIFICIAL TEARS 15 ML OPH BOTH EYES SCH ×4 (09:23→21:08)
[2016-11-27] MEDS: INSULIN GLARGINE [LANtus] 3 ML PEN SC SCH (09:24)
--- NOTE | 2016-11-27 10:51 | CONS ---
Date/Time of Note Date/Time of Note DATE: 11/27/16 TIME: 10:48 Assessment/Plan Assessment/Plan Additional Assessment/Plan Assessment recommendations; 1. Patient admitted for anemia, status post negative EGD and colonoscopy with stable hematocrit now. 2. Chronic renal failure, on hemodialysis. 3. Myopathy. 4. Hypertension diabetes. 5. Recent admission to [facility] with severe bilateral pneumonia requiring prolonged mechanical ventilation, patient however has done extremely well since then. 6. Pleural effusions without any further recurrence. Continue current treatment. Patient can be discharged to a skilled facility. Consultation Date/Type/Reason Admit Date/Time Sep 20, 2016 at 19:21 Initial Consult Date 09/23/16 Type of Consultation: Pulmonary Referring Provider: ZANDRA ROBISON MD, [facility] HR Interval Summary Free Text/Dictation Patient condition is stable. She is completely awake alert. According to her muscular weakness is improving. General exam; elderly lady, awake alert currently in no distress. Exam/Review of Systems Vital Signs Vitals Vital Signs Date Time Temp Pulse Resp B/P Pulse Ox O2 Delivery O2 Flow Rate FiO2 11/27/16 07:27 70 18 99 Nasal Cannula 2.0 11/27/16 07:20 97.5 93/55 11/26/16 07:22 21 Intake and Output 11/26/16 11/26/16 11/27/16 15:00 23:00 07:00 Intake Total 660 ml 360 ml Balance 660 ml 360 ml Exam HEENT exam is; supple neck, no JVD. No lymphadenopathy. Midline trachea. No thyromegaly. Pharynx is clear. Pupils are small bilaterally. Chest examination; clear to ulceration. S1-S2 audible, no murmurs. Regular rhythm. Abdomen examination; soft, nontender. No organomegaly. Nondistended. Bowel sounds audible. Extremity exam; no peripheral edema. 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 There are multiple well-healed ecchymosis involving all 4 extremities. 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 Patient continues to exhibit generalized muscular weakness. Results Result Diagram: 11/27/16 0500 11/27/16 0545 Results 24 hrs Laboratory Tests Test 11/26/16 12:58 11/26/16 17:28 11/26/16 20:39 11/27/16 01:09 Bedside Glucose 177 196 213 132 Test 11/27/16 04:57 11/27/16 05:00 11/27/16 05:45 11/27/16 08:45 Bedside Glucose 118 194 White Blood Count 13.1 #H Red Blood Count 3.15 L Hemoglobin 8.9 L Hematocrit 30.6 L Mean Corpuscular Volume 97.1 Mean Corpuscular Hemoglobin 28.3 L Mean Corpuscular Hemoglobin Concent 29.1 L Red Cell Distribution Width 18.5 H Platelet Count 258 Mean Platelet Volume 10.4 Neutrophils % 58.8 Lymphocytes % 24.4 Monocytes % 11.0 Eosinophils % 3.4 Basophils % 0.4 Nucleated Red Blood Cells % 0.0 Neutrophils # 7.7 H Lymphocytes # 3.2 H Monocytes # 1.5 H Eosinophils # 0.5 Basophils # 0.1 Nucleated Red Blood Cells # 0.0 Sodium Level 133 L Potassium Level 4.9 Chloride Level 97 Carbon Dioxide Level 26 Anion Gap 15 Blood Urea Nitrogen 97 #H Creatinine 3.28 H Glucose Level 116 # Calcium Level 8.6 Magnesium Level 3.1 H Medications Medications Current Medications Acetaminophen (Tylenol Liquid) 650 mg Q4H PRN NGT PAIN AND OR ELEVATED TEMP Last administered on 11/09/16 11:10; Admin Dose 650 MG; Start 09/21/16 at 02:00 Pantoprazole (Protonix Iv) 40 mg AM IV Last administered on 11/27/16 09:21; Admin Dose 40 MG; Start 09/26/16 at 09:00 Epoetin Raj (Epogen (Esrd)) 10,000 units TuThSa@17 SC Last administered on 17:58; Admin Dose 10,000 UNITS; Start 09/26/16 at 17:00 IV Flush (NS 10 ml) 10 ml PRN PRN IV IV PROTOCOL; Start 09/26/16 at 17:30 Lactulose (Enulose) 20 gm BID PRN PO CONSTIPATION Last administered on 12:57; Admin Dose 20 GM; Start 10/23/16 at 10:30 Amylase/Lipase/ Protease (CREON (12k-38k-60k)) 3 cap Q6 NGT Last administered on 11/27/16 05:31; Admin Dose 3 CAP; Start 10/29/16 at 13:00 Latanoprost (Xalatan) 1 drop HS BOTH EYES Last administered on 11/26/16 20:44 ; Admin Dose 1 DROP; Start 10/31/16 at 21:00 Dorzolamide/ Timolol (Cosopt) 1 drop BID BOTH EYES Last administered on 09:23; Admin Dose 1 DROP; Start 10/31/16 at 21:00 Glucagon (Glucagen) 1 mg Q15M PRN IM DECREASED GLUCOSE; Start 11/03/16 at 18:00 Ondansetron HCl (Zofran Inj) 4 mg Q4H PRN IV NAUSEA AND/OR VOMITING Last administered on 11/17/16 08:19; Admin Dose 4 MG; Start 11/04/16 at 23:00 Eye Lubricant (Artificial Tears Oph) 2 drop QID BOTH EYES Last administered on 11/27/16 09:23; Admin Dose 2 DROP; Start 11/07/16 at 09:00 Sodium Biphosphate/ Sodium Phosphate (Fleet Enema) 133 ml DAILY PRN [place] CONSTIPATION; Start 11/07/16 at 19:00 Metoclopramide HCl (Reglan) 5 mg TID IV Last administered on 11/27/16 09:22; Admin Dose 5 MG; Start 11/09/16 at 13:00 Calcium Carbonate (Tums Ex) 750 mg Q6H PRN PO dyspepsia Last administered on 09:22; Admin Dose 750 MG; Start 11/09/16 at 12:30 Morphine Sulfate (morphine) 1 mg Q3H PRN IV pain Last administered on 00:10; Admin Dose 1 MG; Start 11/10/16 at 08:00 Aspirin (Aspirin) 81 mg DAILY GTB Last administered on 11/27/16 09:22; Admin Dose 81 MG; Start 11/12/16 at 19:00 Miscellaneous Information 1 ea NOTE XX ; Start 11/14/16 at 10:00 Glucose (Glutose) 15 gm Q15M PRN PO DECREASED GLUCOSE; Start 11/14/16 at 10:00 Glucose (Glutose) 22.5 gm Q15M PRN PO DECREASED GLUCOSE; Start 11/14/16 at 10: 00 Dextrose (D50w Syringe) 25 ml Q15M PRN IV DECREASED GLUCOSE; Start 11/14/16 at 10:00 Dextrose (D50w Syringe) 50 ml Q15M PRN IV DECREASED GLUCOSE; Start 11/14/16 at 10:00 Glucose (Glutose) 15 gm Q15M PRN BUCCAL DECREASED GLUCOSE; Start 11/14/16 at 10 :00 Escitalopram Oxalate (Lexapro) 10 mg DAILY GTB Last administered on 11/27/16 09:22; Admin Dose 10 MG; Start 11/16/16 at 12:30 Insulin Aspart (Novolog Insulin Pen) NOVOLOG *MODERATE* ALGORI... Q4 SC Last administered on 11/27/16 09:25; Admin Dose 4 UNIT; Start 11/18/16 at 09:00 Clopidogrel Bisulfate (plaVIX) 75 mg DAILY GTB Last administered on 11/27/16 09:22; Admin Dose 75 MG; Start 11/18/16 at 13:00 Lactobacillus Acidophilus (Florajen3 Capsule) 1 each TID PEG Last administered on 11/26/16 22:27; Admin Dose 1 EACH; Start 11/23/16 at 21:00 Calcium Carbonate (Tums) 500 mg TID PEG Last administered on 11/27/16 09:22; Admin Dose 500 MG; Start 11/23/16 at 21:00 Metoprolol Tartrate (Lopressor) 25 mg BID GTB Last administered on 11/26/16 20 :44; Admin Dose 25 MG; Start 11/23/16 at 21:00 Insulin Glargine (Lantus) 14 unit DAILY@08 SC Last administered on 11/27/16 09 :24; Admin Dose 14 UNIT; Start 11/25/16 at 08:00 ADIS CAMACHO November 27, 2016 10:51
--- NOTE | 2016-11-27 19:13 | CONS ---
Date/Time of Note Date/Time of Note DATE: 11/27/16 TIME: 19:07 Assessment/Plan Assessment/Plan Chief Complaint/Hosp Course 1. Acute Renal Failure due to ATN . She is now on maintenance hemodialysis . She has less evidence of volume overload .She had hemodialysis today and 3 liters was removed . She is now on Med/Surg. . 2. ALOC , she continues to be very weak and lethargic . But overall better . She is making progress with PT . 3. liver enzyme elevation has resolved.. 4. CHF , she continues to have lung congestion but her peripheral edema has decreased significantly , she is having fluid removed with dialysis and is overall better . 5. hypocalcemia/hypoalbuminemia , calcium is higher 6. anemia , She has no active GI bleeding now. 7. peripheral vascular disease . 8. respiratory failure , pulmonary function has improved . 9 dysphagia , she has a PEG . . Problems: Consultation Date/Type/Reason Admit Date/Time Sep 20, 2016 at 19:21 Initial Consult Date 09/23/16 Type of Consultation: renal Referring Provider: ZANDRA ROBISON MD, [facility] 24 HR Interval Summary Free Text/Dictation patient is sleeping . she does rouse easily to verbal stimuli and is responsive . Constitutional: improved, no complaints Exam/Review of Systems Vital Signs Vitals Vital Signs Date Time Temp Pulse Resp B/P Pulse Ox O2 Delivery O2 Flow Rate FiO2 11/27/16 17:22 77 19 11/27/16 16:23 2.0 11/27/16 16:12 98 30 11/27/16 14:10 Nasal Cannula 11/27/16 07:20 97.5 93/55 Intake and Output 11/26/16 11/26/16 11/27/16 15:00 23:00 07:00 Intake Total 660 ml 360 ml Balance 660 ml 360 ml Exam Constitutional: alert, frail Respiratory: clear to auscultation, diminished breath sounds Cardiovascular: regular rate and rhythm Gastrointestinal: non-tender, soft Musculoskeletal: nl extremities to inspection Results Result Diagram: 11/27/16 0500 11/27/16 0545 Results 24 hrs Laboratory Tests Test 11/26/16 20:39 11/27/16 01:09 11/27/16 04:57 11/27/16 05:00 Bedside Glucose 213 132 118 White Blood Count 13.1 #H Red Blood Count 3.15 L Hemoglobin 8.9 L Hematocrit 30.6 L Mean Corpuscular Volume 97.1 Mean Corpuscular Hemoglobin 28.3 L Mean Corpuscular Hemoglobin Concent 29.1 L Red Cell Distribution Width 18.5 H Platelet Count 258 Mean Platelet Volume 10.4 Neutrophils % 58.8 Lymphocytes % 24.4 Monocytes % 11.0 Eosinophils % 3.4 Basophils % 0.4 Nucleated Red Blood Cells % 0.0 Neutrophils # 7.7 H Lymphocytes # 3.2 H Monocytes # 1.5 H Eosinophils # 0.5 Basophils # 0.1 Nucleated Red Blood Cells # 0.0 Test 11/27/16 05:45 11/27/16 08:45 11/27/16 12:51 11/27/16 17:31 Sodium Level 133 L Potassium Level 4.9 Chloride Level 97 Carbon Dioxide Level 26 Anion Gap 15 Blood Urea Nitrogen 97 #H Creatinine 3.28 H Glucose Level 116 # Calcium Level 8.6 Magnesium Level 3.1 H Bedside Glucose 194 265 H 162 Medications Medications Current Medications Acetaminophen (Tylenol Liquid) 650 mg Q4H PRN NGT PAIN AND OR ELEVATED TEMP Last administered on 11/09/16 11:10; Admin Dose 650 MG; Start 09/21/16 at 02:00 Pantoprazole (Protonix Iv) 40 mg AM IV Last administered on 11/27/16 09:21; Admin Dose 40 MG; Start 09/26/16 at 09:00 Epoetin Raj (Epogen (Esrd)) 10,000 units TuThSa@17 SC Last administered on 17:58; Admin Dose 10,000 UNITS; Start 09/26/16 at 17:00 IV Flush (NS 10 ml) 10 ml PRN PRN IV IV PROTOCOL; Start 09/26/16 at 17:30 Lactulose (Enulose) 20 gm BID PRN PO CONSTIPATION Last administered on 12:57; Admin Dose 20 GM; Start 10/23/16 at 10:30 Amylase/Lipase/ Protease (CREON (12k-38k-60k)) 3 cap Q6 NGT Last administered on 11/27/16 17:32; Admin Dose 3 CAP; Start 10/29/16 at 13:00 Latanoprost (Xalatan) 1 drop HS BOTH EYES Last administered on 11/26/16 20:44 ; Admin Dose 1 DROP; Start 10/31/16 at 21:00 Dorzolamide/ Timolol (Cosopt) 1 drop BID BOTH EYES Last administered on 09:23; Admin Dose 1 DROP; Start 10/31/16 at 21:00 Glucagon (Glucagen) 1 mg Q15M PRN IM DECREASED GLUCOSE; Start 11/03/16 at 18:00 Ondansetron HCl (Zofran Inj) 4 mg Q4H PRN IV NAUSEA AND/OR VOMITING Last administered on 11/17/16 08:19; Admin Dose 4 MG; Start 11/04/16 at 23:00 Eye Lubricant (Artificial Tears Oph) 2 drop QID BOTH EYES Last administered on 11/27/16 17:32; Admin Dose 2 DROP; Start 11/07/16 at 09:00 Sodium Biphosphate/ Sodium Phosphate (Fleet Enema) 133 ml DAILY PRN [place] CONSTIPATION; Start 11/07/16 at 19:00 Metoclopramide HCl (Reglan) 5 mg TID IV Last administered on 11/27/16 12:12; Admin Dose 5 MG; Start 11/09/16 at 13:00 Calcium Carbonate (Tums Ex) 750 mg Q6H PRN PO dyspepsia Last administered on 09:22; Admin Dose 750 MG; Start 11/09/16 at 12:30 Morphine Sulfate (morphine) 1 mg Q3H PRN IV pain Last administered on 00:10; Admin Dose 1 MG; Start 11/10/16 at 08:00 Aspirin (Aspirin) 81 mg DAILY GTB Last administered on 11/27/16 09:22; Admin Dose 81 MG; Start 11/12/16 at 19:00 Miscellaneous Information 1 ea NOTE XX ; Start 11/14/16 at 10:00 Glucose (Glutose) 15 gm Q15M PRN PO DECREASED GLUCOSE; Start 11/14/16 at 10:00 Glucose (Glutose) 22.5 gm Q15M PRN PO DECREASED GLUCOSE; Start 11/14/16 at 10: 00 Dextrose (D50w Syringe) 25 ml Q15M PRN IV DECREASED GLUCOSE; Start 11/14/16 at 10:00 Dextrose (D50w Syringe) 50 ml Q15M PRN IV DECREASED GLUCOSE; Start 11/14/16 at 10:00 Glucose (Glutose) 15 gm Q15M PRN BUCCAL DECREASED GLUCOSE; Start 11/14/16 at 10 :00 Escitalopram Oxalate (Lexapro) 10 mg DAILY GTB Last administered on 11/27/16 09:22; Admin Dose 10 MG; Start 11/16/16 at 12:30 Insulin Aspart (Novolog Insulin Pen) NOVOLOG *MODERATE* ALGORI... Q4 SC Last administered on 11/27/16 17:33; Admin Dose 2 UNIT; Start 11/18/16 at 09:00 Clopidogrel Bisulfate (plaVIX) 75 mg DAILY GTB Last administered on 11/27/16 09:22; Admin Dose 75 MG; Start 11/18/16 at 13:00 Lactobacillus Acidophilus (Florajen3 Capsule) 1 each TID PEG Last administered on 11/27/16 12:11; Admin Dose 1 EACH; Start 11/23/16 at 21:00 Calcium Carbonate (Tums) 500 mg TID PEG Last administered on 11/27/16 12:12; Admin Dose 500 MG; Start 11/23/16 at 21:00 Metoprolol Tartrate (Lopressor) 25 mg BID GTB Last administered on 11/26/16 20 :44; Admin Dose 25 MG; Start 11/23/16 at 21:00 Insulin Glargine (Lantus) 14 unit DAILY@08 SC Last administered on 11/27/16 09 :24; Admin Dose 14 UNIT; Start 11/25/16 at 08:00 DAMIR MARTINEZ MD November 27, 2016 19:13
[2016-11-27] MEDS: LATANOPROST 0.005% 2.5 ML OPH BOTH EYES SCH (21:35)
[2016-11-28] MEDS: CREON (12k-38k-60k) 1 CAP NGT SCH ×4 (00:39→18:04)
[2016-11-28] MEDS: INSULIN ASPART [NOVOLOG] 3 ML PEN SC SCH ×6 (00:43→21:28)
[2016-11-28] MEDS: LEVALBUTEROL (NEB) 1.25 MG/0.5 ML AMP HHN SCH ×4 (02:13→19:40)
[2016-11-28] MEDS: IPRATROPIUM (NEB) 0.5 MG/2.5 ML AMP HHN SCH ×4 (02:14→19:40)
[2016-11-28 07:45] VITALS: BP 101/64; RESP 20
[2016-11-28] MEDS: L ACIDOPHIL/B LACTIS/B LONGUM CAPSULE PEG SCH ×3 (08:44→21:29)
[2016-11-28] MEDS: METOCLOPRAMIDE 10 MG INJ IV SCH ×2 (08:44→13:12)
[2016-11-28] MEDS: PANTOPRAZOLE 40 MG INJ IV SCH (08:44)
[2016-11-28] MEDS: CLOPIDOGREL 75 MG TAB GTB SCH (08:45)
[2016-11-28] MEDS: ESCITALOPRAM 10 MG TAB GTB SCH (08:45)
[2016-11-28] MEDS: CALCIUM CARBONATE 500 MG CHEW TAB PEG SCH ×3 (08:45→21:29)
[2016-11-28] MEDS: ASPIRIN 81 MG TAB GTB SCH (08:45)
[2016-11-28] MEDS: METOPROLOL 25 MG TAB GTB SCH ×2 (08:46→21:30)
[2016-11-28] MEDS: DORZOLAMIDE/TIMOLOL 10 ML OPH BOTH EYES SCH ×2 (08:48→21:31)
[2016-11-28] MEDS: ARTIFICIAL TEARS 15 ML OPH BOTH EYES SCH ×4 (08:49→21:31)
[2016-11-28] MEDS: INSULIN GLARGINE [LANtus] 3 ML PEN SC SCH (08:58)
--- NOTE | 2016-11-28 09:26 | CONS ---
Date/Time of Note Date/Time of Note DATE: 11/28/16 TIME: 09:14 Assessment/Plan Assessment/Plan Chief Complaint/Hosp Course 1. Acute Renal Failure due to ATN . She is now on maintenance hemodialysis . She has less evidence of volume overload .She had hemodialysis yesterday and 3 liters of fluid was removed . 2. ALOC , she continues to be very weak and lethargic . But overall better . She is making progress with PT . 3. liver enzyme elevation has resolved.. 4. CHF , she continues to have lung congestion but her peripheral edema has decreased significantly , she is having fluid removed with dialysis and is overall better . 5. hypocalcemia/hypoalbuminemia , calcium is higher 6. anemia , She has no active GI bleeding now. 7. peripheral vascular disease . 8. respiratory failure , pulmonary function has improved . 9 dysphagia , she has a PEG . 10. discharge planning . She can be discharged to home or SNF , with outpatient dialysis . . Problems: Consultation Date/Type/Reason Admit Date/Time Sep 20, 2016 at 19:21 Initial Consult Date 09/23/16 Type of Consultation: renal Referring Provider: ZANDRA ROBISON MD, [facility] 24 HR Interval Summary Free Text/Dictation She is lethargic but rouses easily to verbal stimuli .No complaints . Constitutional: no complaints Exam/Review of Systems Vital Signs Vitals Vital Signs Date Time Temp Pulse Resp B/P Pulse Ox O2 Delivery O2 Flow Rate FiO2 11/28/16 08:48 77 18 100 Nasal Cannula 2.0 11/28/16 07:45 97.9 101/64 11/27/16 16:12 30 Intake and Output 11/27/16 11/27/16 11/28/16 15:00 23:00 07:00 Intake Total 1080 ml 360 ml Output Total 3300 ml Balance -2220 ml 360 ml Exam Constitutional: alert, frail, obese, oriented Respiratory: clear to auscultation, normal air movement Cardiovascular: edema, regular rate and rhythm Musculoskeletal: nl extremities to inspection Results Result Diagram: 11/27/16 0500 11/27/16 0545 Results 24 hrs Laboratory Tests Test 11/27/16 12:51 11/27/16 17:31 11/27/16 21:04 11/28/16 00:39 Bedside Glucose 265 H 162 176 165 Test 11/28/16 05:34 11/28/16 08:45 Bedside Glucose 147 139 Medications Medications Current Medications Acetaminophen (Tylenol Liquid) 650 mg Q4H PRN NGT PAIN AND OR ELEVATED TEMP Last administered on 11/09/16 11:10; Admin Dose 650 MG; Start 09/21/16 at 02:00 Pantoprazole (Protonix Iv) 40 mg AM IV Last administered on 11/28/16 08:44; Admin Dose 40 MG; Start 09/26/16 at 09:00 Epoetin Raj (Epogen (Esrd)) 10,000 units TuThSa@17 SC Last administered on 17:58; Admin Dose 10,000 UNITS; Start 09/26/16 at 17:00 IV Flush (NS 10 ml) 10 ml PRN PRN IV IV PROTOCOL; Start 09/26/16 at 17:30 Lactulose (Enulose) 20 gm BID PRN PO CONSTIPATION Last administered on 12:57; Admin Dose 20 GM; Start 10/23/16 at 10:30 Amylase/Lipase/ Protease (CREON (12r-18k-60k)) 3 cap Q6 NGT Last administered on 11/28/16 05:35; Admin Dose 3 CAP; Start 10/29/16 at 13:00 Latanoprost (Xalatan) 1 drop HS BOTH EYES Last administered on 11/27/16 21:35 ; Admin Dose 1 DROP; Start 10/31/16 at 21:00 Dorzolamide/ Timolol (Cosopt) 1 drop BID BOTH EYES Last administered on 08:48; Admin Dose 1 DROP; Start 10/31/16 at 21:00 Glucagon (Glucagen) 1 mg Q15M PRN IM DECREASED GLUCOSE; Start 11/03/16 at 18:00 Ondansetron HCl (Zofran Inj) 4 mg Q4H PRN IV NAUSEA AND/OR VOMITING Last administered on 11/17/16 08:19; Admin Dose 4 MG; Start 11/04/16 at 23:00 Eye Lubricant (Artificial Tears Oph) 2 drop QID BOTH EYES Last administered on 11/28/16 08:49; Admin Dose 2 DROP; Start 11/07/16 at 09:00 Sodium Biphosphate/ Sodium Phosphate (Fleet Enema) 133 ml DAILY PRN [place] CONSTIPATION; Start 11/07/16 at 19:00 Metoclopramide HCl (Reglan) 5 mg TID IV Last administered on 11/28/16 08:44; Admin Dose 5 MG; Start 11/09/16 at 13:00 Calcium Carbonate (Tums Ex) 750 mg Q6H PRN PO dyspepsia Last administered on 09:22; Admin Dose 750 MG; Start 11/09/16 at 12:30 Morphine Sulfate (morphine) 1 mg Q3H PRN IV pain Last administered on 00:10; Admin Dose 1 MG; Start 11/10/16 at 08:00 Aspirin (Aspirin) 81 mg DAILY GTB Last administered on 11/28/16 08:45; Admin Dose 81 MG; Start 11/12/16 at 19:00 Miscellaneous Information 1 ea NOTE XX ; Start 11/14/16 at 10:00 Glucose (Glutose) 15 gm Q15M PRN PO DECREASED GLUCOSE; Start 11/14/16 at 10:00 Glucose (Glutose) 22.5 gm Q15M PRN PO DECREASED GLUCOSE; Start 11/14/16 at 10: 00 Dextrose (D50w Syringe) 25 ml Q15M PRN IV DECREASED GLUCOSE; Start 11/14/16 at 10:00 Dextrose (D50w Syringe) 50 ml Q15M PRN IV DECREASED GLUCOSE; Start 11/14/16 at 10:00 Glucose (Glutose) 15 gm Q15M PRN BUCCAL DECREASED GLUCOSE; Start 11/14/16 at 10 :00 Escitalopram Oxalate (Lexapro) 10 mg DAILY GTB Last administered on 11/28/16 08:45; Admin Dose 10 MG; Start 11/16/16 at 12:30 Insulin Aspart (Novolog Insulin Pen) NOVOLOG *MODERATE* ALGORI... Q4 SC Last administered on 11/28/16 05:37; Admin Dose 2 UNIT; Start 11/18/16 at 09:00 Clopidogrel Bisulfate (plaVIX) 75 mg DAILY GTB Last administered on 11/28/16 08:45; Admin Dose 75 MG; Start 11/18/16 at 13:00 Lactobacillus Acidophilus (Florajen3 Capsule) 1 each TID PEG Last administered on 11/28/16 08:44; Admin Dose 1 EACH; Start 11/23/16 at 21:00 Calcium Carbonate (Tums) 500 mg TID PEG Last administered on 11/28/16 08:45; Admin Dose 500 MG; Start 11/23/16 at 21:00 Metoprolol Tartrate (Lopressor) 25 mg BID GTB Last administered on 11/28/16 08 :46; Admin Dose 25 MG; Start 11/23/16 at 21:00 Insulin Glargine (Lantus) 14 unit DAILY@08 SC Last administered on 11/28/16 08 :58; Admin Dose 14 UNIT; Start 11/25/16 at 08:00 DAMIR MARTINEZ MD November 28, 2016 09:25
--- NOTE | 2016-11-28 10:12 | CONS ---
Date/Time of Note Date/Time of Note DATE: 11/28/16 TIME: 10:10 Consult Date/Type/Reason Admit Date/Time Sep 20, 2016 at 19:21 Initial Consult Date 09/23/16 Type of Consultation: Pulmonary Ordering Provider: ZANDRA ROBISON MD, [facility] Subjective Patient remains stable this morning no new events no respiratory distress Objective Vital Signs Date Time Temp Pulse Resp B/P Pulse Ox O2 Delivery O2 Flow Rate FiO2 11/28/16 08:48 77 18 100 Nasal Cannula 2.0 11/28/16 07:45 97.9 101/64 11/27/16 16:12 30 Intake and Output 11/27/16 11/27/16 11/28/16 15:00 23:00 07:00 Intake Total 1080 ml 360 ml Output Total 3300 ml Balance -2220 ml 360 ml Exam GENERAL: Elderly lady comfortable at rest no acute distress VITAL SIGNS: per chart NECK: Supple. No JVD or lymphadenopathy. CARDIAC EXAM: S1, S2. No added sounds or murmurs. CHEST: clear bilaterally, No added sounds, rales or wheezes ABDOMEN: Soft, nontender. No guarding or rebound. EXTREMITIES: No cyanosis, clubbing edema +2 NEUROLOGIC: Generalized weakness. Results/Medications Result Diagram: 11/27/16 0500 11/27/16 0545 Results 24 hrs Laboratory Tests Test 11/27/16 12:51 11/27/16 17:31 11/27/16 21:04 11/28/16 00:39 Bedside Glucose 265 H 162 176 165 Test 11/28/16 05:34 11/28/16 08:45 Bedside Glucose 147 139 Medications Current Medications Acetaminophen (Tylenol Liquid) 650 mg Q4H PRN NGT PAIN AND OR ELEVATED TEMP Last administered on 11/09/16 11:10; Admin Dose 650 MG; Start 09/21/16 at 02:00 Pantoprazole (Protonix Iv) 40 mg AM IV Last administered on 11/28/16 08:44; Admin Dose 40 MG; Start 09/26/16 at 09:00 Epoetin Raj (Epogen (Esrd)) 10,000 units TuThSa@17 SC Last administered on 17:58; Admin Dose 10,000 UNITS; Start 09/26/16 at 17:00 IV Flush (NS 10 ml) 10 ml PRN PRN IV IV PROTOCOL; Start 09/26/16 at 17:30 Lactulose (Enulose) 20 gm BID PRN PO CONSTIPATION Last administered on 12:57; Admin Dose 20 GM; Start 10/23/16 at 10:30 Amylase/Lipase/ Protease (CREON (12k-38k-60k)) 3 cap Q6 NGT Last administered on 11/28/16 05:35; Admin Dose 3 CAP; Start 10/29/16 at 13:00 Latanoprost (Xalatan) 1 drop HS BOTH EYES Last administered on 11/27/16 21:35 ; Admin Dose 1 DROP; Start 10/31/16 at 21:00 Dorzolamide/ Timolol (Cosopt) 1 drop BID BOTH EYES Last administered on 08:48; Admin Dose 1 DROP; Start 10/31/16 at 21:00 Glucagon (Glucagen) 1 mg Q15M PRN IM DECREASED GLUCOSE; Start 11/03/16 at 18:00 Ondansetron HCl (Zofran Inj) 4 mg Q4H PRN IV NAUSEA AND/OR VOMITING Last administered on 11/17/16 08:19; Admin Dose 4 MG; Start 11/04/16 at 23:00 Eye Lubricant (Artificial Tears Oph) 2 drop QID BOTH EYES Last administered on 11/28/16 08:49; Admin Dose 2 DROP; Start 11/07/16 at 09:00 Sodium Biphosphate/ Sodium Phosphate (Fleet Enema) 133 ml DAILY PRN [place] CONSTIPATION; Start 11/07/16 at 19:00 Metoclopramide HCl (Reglan) 5 mg TID IV Last administered on 11/28/16 08:44; Admin Dose 5 MG; Start 11/09/16 at 13:00 Calcium Carbonate (Tums Ex) 750 mg Q6H PRN PO dyspepsia Last administered on 09:22; Admin Dose 750 MG; Start 11/09/16 at 12:30 Morphine Sulfate (morphine) 1 mg Q3H PRN IV pain Last administered on 00:10; Admin Dose 1 MG; Start 11/10/16 at 08:00 Aspirin (Aspirin) 81 mg DAILY GTB Last administered on 11/28/16 08:45; Admin Dose 81 MG; Start 11/12/16 at 19:00 Miscellaneous Information 1 ea NOTE XX ; Start 11/14/16 at 10:00 Glucose (Glutose) 15 gm Q15M PRN PO DECREASED GLUCOSE; Start 11/14/16 at 10:00 Glucose (Glutose) 22.5 gm Q15M PRN PO DECREASED GLUCOSE; Start 11/14/16 at 10: 00 Dextrose (D50w Syringe) 25 ml Q15M PRN IV DECREASED GLUCOSE; Start 11/14/16 at 10:00 Dextrose (D50w Syringe) 50 ml Q15M PRN IV DECREASED GLUCOSE; Start 11/14/16 at 10:00 Glucose (Glutose) 15 gm Q15M PRN BUCCAL DECREASED GLUCOSE; Start 11/14/16 at 10 :00 Escitalopram Oxalate (Lexapro) 10 mg DAILY GTB Last administered on 11/28/16 08:45; Admin Dose 10 MG; Start 11/16/16 at 12:30 Insulin Aspart (Novolog Insulin Pen) NOVOLOG *MODERATE* ALGORI... Q4 SC Last administered on 11/28/16 05:37; Admin Dose 2 UNIT; Start 11/18/16 at 09:00 Clopidogrel Bisulfate (plaVIX) 75 mg DAILY GTB Last administered on 11/28/16 08:45; Admin Dose 75 MG; Start 11/18/16 at 13:00 Lactobacillus Acidophilus (Florajen3 Capsule) 1 each TID PEG Last administered on 11/28/16 08:44; Admin Dose 1 EACH; Start 11/23/16 at 21:00 Calcium Carbonate (Tums) 500 mg TID PEG Last administered on 11/28/16 08:45; Admin Dose 500 MG; Start 11/23/16 at 21:00 Metoprolol Tartrate (Lopressor) 25 mg BID GTB Last administered on 11/28/16 08 :46; Admin Dose 25 MG; Start 11/23/16 at 21:00 Insulin Glargine (Lantus) 14 unit DAILY@08 SC Last administered on 11/28/16 08 :58; Admin Dose 14 UNIT; Start 11/25/16 at 08:00 Assessment/Plan Chief Complaint/Hosp Course Assessment and plan 1. Patient admitted for anemia, status post negative EGD and colonoscopy with stable hematocrit now. 2. Chronic renal failure, on hemodialysis. Discussed with nephrology currently patient stable no need to stay in the hospital for further dialysis 3. Myopathy. 4. Hypertension diabetes. 5. Status post hypoxemic respiratory failure with intubation and prolonged mechanical ventilation 6. Pleural effusions without any further recurrence. Discharge planning okay from pulmonary standpoint Problems: ZANDRA ROBISON MD, [facility] November 28, 2016 10:12
--- NOTE | 2016-11-28 17:05 | PN ---
Date/Time of Note Date/Time of Note DATE: 11/28/16 TIME: 16:57 Assessment/Plan VTE Prophylaxis VTE Prophylaxis Intervention: other (asa, plavix) Lines/Catheters IV Catheter Type (from Nrsg): PICC Line Central line still needed: No Urinary Cath still in place: No Assessment/Plan Assessment/Plan 1. cad/ htn/ pad/ anticoag 2. rld/ pulm effusion 3. arf/ better edema/ anemia--dialysis 4. dm 5. weak musc strength/ coughs--peg feed dep 6. depression ---per cards ---per pulm ---per renal ---cont all supportive cares Subjective 24 Hr Interval Summary Free Text/Dictation not out of bed, still feel weak, mouth dry, very slow recuperating SHAMA LOPEZ MD November 28, 2016 17:05
--- NOTE | 2016-11-28 17:18 | PN ---
Date/Time of Note Date/Time of Note DATE: 11/28/16 TIME: 17:09 Assessment/Plan VTE Prophylaxis VTE Prophylaxis Intervention: other (asa, plavix) Lines/Catheters IV Catheter Type (from Nrsg): PICC Line Central line still needed: No Urinary Cath still in place: No Assessment/Plan Assessment/Plan 1. cad/ htn/ pad/ anticoag 2. rld/ pulm effusion 3. arf/ anemia--dialysis dep 4. dm 5. depression w/ very little motivation 6. weak musc strength/ coughs--very poor progress ---all in all with very guarded prognosis, most likely pt will be returning to hosp soon after d/c. ---spoke w/ family service caseworker to look into snf transfer & set up outpt maintenance dialysis. ---PT/OT to do aggressive transport oob to chair exercises for prep to transfer to snf most likely next week. ---will speak with family re: not going home right away. ---cont all supportive cares. ---will discuss with pt re: code status Subjective 24 Hr Interval Summary Free Text/Dictation not interested, just very tired, not hungry Exam/Review of Systems Vital Signs Vitals Vital Signs Date Time Temp Pulse Resp B/P Pulse Ox O2 Delivery O2 Flow Rate FiO2 11/28/16 15:14 2.0 11/28/16 14:54 80 20 100 Nasal Cannula 11/28/16 07:45 97.9 101/64 11/27/16 16:12 30 Intake and Output 11/27/16 11/27/16 11/28/16 15:00 23:00 07:00 Intake Total 1080 ml 360 ml Output Total 3300 ml Balance -2220 ml 360 ml Exam obese, in bed, toes blue black flat affect, not much responces dec bs bibasilar rr less periph body edema Results Result Diagram: 11/27/16 0500 11/27/16 0545 Results 24 hrs Laboratory Tests Test 11/27/16 17:31 11/27/16 21:04 11/28/16 00:39 11/28/16 05:34 Bedside Glucose 162 176 165 147 Test 11/28/16 08:45 11/28/16 13:09 11/28/16 16:54 Bedside Glucose 139 256 H 258 H Medications Medications Current Medications Acetaminophen (Tylenol Liquid) 650 mg Q4H PRN NGT PAIN AND OR ELEVATED TEMP Last administered on 11/09/16 11:10; Admin Dose 650 MG; Start 09/21/16 at 02:00 Pantoprazole (Protonix Iv) 40 mg AM IV Last administered on 11/28/16 08:44; Admin Dose 40 MG; Start 09/26/16 at 09:00 Epoetin Raj (Epogen (Esrd)) 10,000 units TuThSa@17 SC Last administered on 17:58; Admin Dose 10,000 UNITS; Start 09/26/16 at 17:00 IV Flush (NS 10 ml) 10 ml PRN PRN IV IV PROTOCOL; Start 09/26/16 at 17:30 Lactulose (Enulose) 20 gm BID PRN PO CONSTIPATION Last administered on 12:57; Admin Dose 20 GM; Start 10/23/16 at 10:30 Amylase/Lipase/ Protease (CREON (27m-74f-30d)) 3 cap Q6 NGT Last administered on 11/28/16 13:12; Admin Dose 3 CAP; Start 10/29/16 at 13:00 Latanoprost (Xalatan) 1 drop HS BOTH EYES Last administered on 11/27/16 21:35 ; Admin Dose 1 DROP; Start 10/31/16 at 21:00 Dorzolamide/ Timolol (Cosopt) 1 drop BID BOTH EYES Last administered on 08:48; Admin Dose 1 DROP; Start 10/31/16 at 21:00 Glucagon (Glucagen) 1 mg Q15M PRN IM DECREASED GLUCOSE; Start 11/03/16 at 18:00 Ondansetron HCl (Zofran Inj) 4 mg Q4H PRN IV NAUSEA AND/OR VOMITING Last administered on 11/17/16 08:19; Admin Dose 4 MG; Start 11/04/16 at 23:00 Eye Lubricant (Artificial Tears Oph) 2 drop QID BOTH EYES Last administered on 11/28/16 13:10; Admin Dose 2 DROP; Start 11/07/16 at 09:00 Sodium Biphosphate/ Sodium Phosphate (Fleet Enema) 133 ml DAILY PRN [place] CONSTIPATION; Start 11/07/16 at 19:00 Metoclopramide HCl (Reglan) 5 mg TID IV Last administered on 11/28/16 13:12; Admin Dose 5 MG; Start 11/09/16 at 13:00 Calcium Carbonate (Tums Ex) 750 mg Q6H PRN PO dyspepsia Last administered on 09:22; Admin Dose 750 MG; Start 11/09/16 at 12:30 Morphine Sulfate (morphine) 1 mg Q3H PRN IV pain Last administered on 00:10; Admin Dose 1 MG; Start 11/10/16 at 08:00 Aspirin (Aspirin) 81 mg DAILY GTB Last administered on 11/28/16 08:45; Admin Dose 81 MG; Start 11/12/16 at 19:00 Miscellaneous Information 1 ea NOTE XX ; Start 11/14/16 at 10:00 Glucose (Glutose) 15 gm Q15M PRN PO DECREASED GLUCOSE; Start 11/14/16 at 10:00 Glucose (Glutose) 22.5 gm Q15M PRN PO DECREASED GLUCOSE; Start 11/14/16 at 10: 00 Dextrose (D50w Syringe) 25 ml Q15M PRN IV DECREASED GLUCOSE; Start 11/14/16 at 10:00 Dextrose (D50w Syringe) 50 ml Q15M PRN IV DECREASED GLUCOSE; Start 11/14/16 at 10:00 Glucose (Glutose) 15 gm Q15M PRN BUCCAL DECREASED GLUCOSE; Start 11/14/16 at 10 :00 Escitalopram Oxalate (Lexapro) 10 mg DAILY GTB Last administered on 11/28/16 08:45; Admin Dose 10 MG; Start 11/16/16 at 12:30 Insulin Aspart (Novolog Insulin Pen) NOVOLOG *MODERATE* ALGORI... Q4 SC Last administered on 11/28/16 13:43; Admin Dose 6 UNIT; Start 11/18/16 at 09:00 Clopidogrel Bisulfate (plaVIX) 75 mg DAILY GTB Last administered on 11/28/16 08:45; Admin Dose 75 MG; Start 11/18/16 at 13:00 Lactobacillus Acidophilus (Florajen3 Capsule) 1 each TID PEG Last administered on 11/28/16 13:12; Admin Dose 1 EACH; Start 11/23/16 at 21:00 Calcium Carbonate (Tums) 500 mg TID PEG Last administered on 11/28/16 13:12; Admin Dose 500 MG; Start 11/23/16 at 21:00 Metoprolol Tartrate (Lopressor) 25 mg BID GTB Last administered on 11/28/16 08 :46; Admin Dose 25 MG; Start 11/23/16 at 21:00 Insulin Glargine (Lantus) 14 unit DAILY@08 SC Last administered on 11/28/16 08 :58; Admin Dose 14 UNIT; Start 11/25/16 at 08:00 SHAMA LOPEZ MD November 28, 2016 17:18
[2016-11-28] MEDS: METOCLOPRAMIDE (1 MG/ML) 10 ML CUP PEG SCH (17:52)
[2016-11-28] MEDS: EPOETIN 10000 UNITS/1 ML INJ (ESRD) SC SCH (18:04)
[2016-11-28 20:33] VITALS: BP 108/58; RESP 20
[2016-11-28] MEDS: LATANOPROST 0.005% 2.5 ML OPH BOTH EYES SCH (21:31)
[2016-11-28] MEDS: morphine 2 MG INJ IV PRN (22:27)
[2016-11-29] VITALS (11 sets, daily range): BP systolic 91–121; BP diastolic 48–73; PULSE 74–79; RESP 16–20
[2016-11-29] MEDS: METOCLOPRAMIDE (1 MG/ML) 10 ML CUP PEG SCH ×4 (00:34→17:47)
[2016-11-29] MEDS: INSULIN ASPART [NOVOLOG] 3 ML PEN SC SCH ×6 (00:44→21:05)
[2016-11-29] MEDS: LEVALBUTEROL (NEB) 1.25 MG/0.5 ML AMP HHN SCH ×4 (02:48→20:14)
[2016-11-29] MEDS: IPRATROPIUM (NEB) 0.5 MG/2.5 ML AMP HHN SCH ×4 (02:48→20:15)
[2016-11-29 05:35] LABS: ADD SCAN DIFF NO
[2016-11-29 05:39] LABS: BASOPHIL # 0.1 10^3/ul (0.0-0.1); BASOPHILS % 0.4 % (0.0-2.0); EOSINOPHILS # 0.5 10^3/ul (0.0-0.5); EOSINOPHILS % 3.9 % (0.0-7.0); HEMATOCRIT 29.6 % (37.0-47.0); HEMOGLOBIN 8.8 g/dl (12.0-16.0); LYMPHOCYTES # 2.9 10^3/ul (0.8-2.9); MEAN CORPUSCULAR HEMOGLOBIN 28.3 pg (29.0-33.0); MEAN CORPUSCULAR HGB CONC 29.7 g/dl (32.0-37.0); MEAN CORPUSCULAR VOLUME 95.2 fl (82.0-101.0); MEAN PLATELET VOLUME 10.4 fl (7.4-10.4); MONOCYTE # 1.3 10^3/ul (0.3-0.9); MONOCYTES % 11.1 % (0.0-11.0); NEUTROPHIL # 6.9 10^3/ul (1.6-7.5); NEUTROPHILS % 57.8 % (39.0-77.0); NUCLEATED RED BLOOD CELLS% 0.2 /100WBC (0.0-0.0); PLATELET COUNT 277 10^3/UL (140-415); RED BLOOD COUNT 3.11 10^6/ul (4.20-5.40); WHITE BLOOD COUNT 11.9 10^3/ul (4.8-10.8)
[2016-11-29] MEDS: CREON (12k-38k-60k) 1 CAP NGT SCH ×4 (06:00→17:47)
[2016-11-29 06:14] LABS: ALBUMIN 2.4 g/dl (3.3-4.9); ALBUMIN/GLOBULIN RATIO 0.63; CALCIUM 8.4 mg/dl (8.4-10.2); CREATININE 2.53 mg/dl (0.44-1.00); MAGNESIUM 2.8 mg/dl (1.7-2.5); PHOSPHORUS 3.4 mg/dl (2.5-4.9); POTASSIUM 4.3 mmol/L (3.5-5.1); TOTAL PROTEIN 6.2 g/dl (6.1-8.1)
[2016-11-29] MEDS: DORZOLAMIDE/TIMOLOL 10 ML OPH BOTH EYES SCH ×2 (08:05→20:39)
[2016-11-29] MEDS: ARTIFICIAL TEARS 15 ML OPH BOTH EYES SCH ×4 (08:05→20:39)
[2016-11-29] MEDS: INSULIN GLARGINE [LANtus] 3 ML PEN SC SCH (08:10)
[2016-11-29] MEDS: METOPROLOL 25 MG TAB GTB SCH ×2 (09:00→20:06)
[2016-11-29] MEDS: ASPIRIN 81 MG TAB GTB SCH (09:08)
[2016-11-29] MEDS: CLOPIDOGREL 75 MG TAB GTB SCH (09:08)
[2016-11-29] MEDS: ESCITALOPRAM 10 MG TAB GTB SCH (09:08)
[2016-11-29] MEDS: CALCIUM CARBONATE 500 MG CHEW TAB PEG SCH ×3 (09:08→20:38)
[2016-11-29] MEDS: PANTOPRAZOLE 40 MG INJ IV SCH (09:08)
[2016-11-29] MEDS: L ACIDOPHIL/B LACTIS/B LONGUM CAPSULE PEG SCH ×3 (10:34→20:39)
[2016-11-29] MEDS: morphine 2 MG INJ IV PRN (12:49)
--- NOTE | 2016-11-29 15:49 | CONS ---
Date/Time of Note Date/Time of Note DATE: 11/29/16 TIME: 15:46 Assessment/Plan Assessment/Plan Chief Complaint/Hosp Course 1. Acute Renal Failure due to ATN . She is now on maintenance hemodialysis . She has less evidence of volume overload .She had hemodialysis ordered for today . 2. ALOC , she continues to be very weak and lethargic . But overall better . She is making progress with PT . 3. liver enzyme elevation has resolved.. 4. CHF , she continues to have lung congestion but her peripheral edema has decreased significantly , she is having fluid removed with dialysis and is overall better . 5. hypocalcemia/hypoalbuminemia , calcium is higher 6. anemia , She has no active GI bleeding now. 7. peripheral vascular disease . 8. respiratory failure , pulmonary function has improved . 9 dysphagia , she has a PEG . 10. discharge planning . She can be discharged to home or SNF , with outpatient dialysis . . Problems: Consultation Date/Type/Reason Admit Date/Time Sep 20, 2016 at 19:21 Initial Consult Date 09/23/16 Type of Consultation: Pulmonary Referring Provider: ZANDRA ROBISON MD, [facility] 24 HR Interval Summary Free Text/Dictation She is sleeping but rouses easily to verbal stimuli . Constitutional: no complaints Exam/Review of Systems Vital Signs Vitals Vital Signs Date Time Temp Pulse Resp B/P Pulse Ox O2 Delivery O2 Flow Rate FiO2 11/29/16 15:25 74 20 11/29/16 08:48 96 21 11/29/16 08:11 97.9 98/56 11/28/16 15:14 2.0 11/28/16 14:54 Nasal Cannula Intake and Output 11/28/16 11/28/16 11/29/16 15:00 23:00 07:00 Intake Total 660 ml 360 ml Balance 660 ml 360 ml Exam Constitutional: alert, frail, oriented Neck: supple Respiratory: clear to auscultation, normal air movement Cardiovascular: regular rate and rhythm Gastrointestinal: soft Musculoskeletal: nl extremities to inspection Results Result Diagram: 11/29/16 0520 11/29/16 0520 Results 24 hrs Laboratory Tests Test 11/28/16 16:54 11/28/16 21:26 11/29/16 00:39 11/29/16 05:20 Bedside Glucose 258 H 236 H 214 White Blood Count 11.9 H Red Blood Count 3.11 L Hemoglobin 8.8 L Hematocrit 29.6 L Mean Corpuscular Volume 95.2 Mean Corpuscular Hemoglobin 28.3 L Mean Corpuscular Hemoglobin Concent 29.7 L Red Cell Distribution Width 18.0 H Platelet Count 277 Mean Platelet Volume 10.4 Neutrophils % 57.8 Lymphocytes % 24.0 Monocytes % 11.1 H Eosinophils % 3.9 Basophils % 0.4 Nucleated Red Blood Cells % 0.2 H Neutrophils # 6.9 Lymphocytes # 2.9 Monocytes # 1.3 H Eosinophils # 0.5 Basophils # 0.1 Nucleated Red Blood Cells # 0.0 Sodium Level 129 L Potassium Level 4.3 Chloride Level 93 L Carbon Dioxide Level 30 Anion Gap 10 # Blood Urea Nitrogen 66 #H Creatinine 2.53 H Glucose Level 160 Calcium Level 8.4 Phosphorus Level 3.4 Magnesium Level 2.8 H Total Bilirubin 0.0 L Direct Bilirubin 0.00 Indirect Bilirubin 0.0 Aspartate Amino Transf (AST/SGOT) 32 Alanine Aminotransferase (ALT/SGPT) 26 Alkaline Phosphatase 193 H Total Protein 6.2 Albumin 2.4 L Globulin 3.80 H Albumin/Globulin Ratio 0.63 Test 11/29/16 05:32 11/29/16 08:02 11/29/16 12:31 Bedside Glucose 173 214 278 H Medications Medications Current Medications Acetaminophen (Tylenol Liquid) 650 mg Q4H PRN NGT PAIN AND OR ELEVATED TEMP Last administered on 11/09/16 11:10; Admin Dose 650 MG; Start 09/21/16 at 02:00 Pantoprazole (Protonix Iv) 40 mg AM IV Last administered on 11/29/16 09:08; Admin Dose 40 MG; Start 09/26/16 at 09:00 Epoetin Raj (Epogen (Esrd)) 10,000 units TuThSa@17 SC Last administered on 18:04; Admin Dose 10,000 UNITS; Start 09/26/16 at 17:00 IV Flush (NS 10 ml) 10 ml PRN PRN IV IV PROTOCOL; Start 09/26/16 at 17:30 Lactulose (Enulose) 20 gm BID PRN PO CONSTIPATION Last administered on 12:57; Admin Dose 20 GM; Start 10/23/16 at 10:30 Amylase/Lipase/ Protease (CREON (12k-38k-60k)) 3 cap Q6 NGT Last administered on 11/28/16 18:04; Admin Dose 3 CAP; Start 10/29/16 at 13:00 Latanoprost (Xalatan) 1 drop HS BOTH EYES Last administered on 11/28/16 21:31 ; Admin Dose 1 DROP; Start 10/31/16 at 21:00 Dorzolamide/ Timolol (Cosopt) 1 drop BID BOTH EYES Last administered on 08:05; Admin Dose 1 DROP; Start 10/31/16 at 21:00 Glucagon (Glucagen) 1 mg Q15M PRN IM DECREASED GLUCOSE; Start 11/03/16 at 18:00 Ondansetron HCl (Zofran Inj) 4 mg Q4H PRN IV NAUSEA AND/OR VOMITING Last administered on 11/17/16 08:19; Admin Dose 4 MG; Start 11/04/16 at 23:00 Eye Lubricant (Artificial Tears Oph) 2 drop QID BOTH EYES Last administered on 11/29/16 12:32; Admin Dose 2 DROP; Start 11/07/16 at 09:00 Sodium Biphosphate/ Sodium Phosphate (Fleet Enema) 133 ml DAILY PRN [place] CONSTIPATION; Start 11/07/16 at 19:00 Calcium Carbonate (Tums Ex) 750 mg Q6H PRN PO dyspepsia Last administered on 09:22; Admin Dose 750 MG; Start 11/09/16 at 12:30 Morphine Sulfate (morphine) 1 mg Q3H PRN IV pain Last administered on 12:49; Admin Dose 1 MG; Start 11/10/16 at 08:00 Aspirin (Aspirin) 81 mg DAILY GTB Last administered on 11/29/16 09:08; Admin Dose 81 MG; Start 11/12/16 at 19:00 Miscellaneous Information 1 ea NOTE XX ; Start 11/14/16 at 10:00 Glucose (Glutose) 15 gm Q15M PRN PO DECREASED GLUCOSE; Start 11/14/16 at 10:00 Glucose (Glutose) 22.5 gm Q15M PRN PO DECREASED GLUCOSE; Start 11/14/16 at 10: 00 Dextrose (D50w Syringe) 25 ml Q15M PRN IV DECREASED GLUCOSE; Start 11/14/16 at 10:00 Dextrose (D50w Syringe) 50 ml Q15M PRN IV DECREASED GLUCOSE; Start 11/14/16 at 10:00 Glucose (Glutose) 15 gm Q15M PRN BUCCAL DECREASED GLUCOSE; Start 11/14/16 at 10 :00 Escitalopram Oxalate (Lexapro) 10 mg DAILY GTB Last administered on 11/29/16 09:08; Admin Dose 10 MG; Start 11/16/16 at 12:30 Clopidogrel Bisulfate (plaVIX) 75 mg DAILY GTB Last administered on 11/29/16 09:08; Admin Dose 75 MG; Start 11/18/16 at 13:00 Lactobacillus Acidophilus (Florajen3 Capsule) 1 each TID PEG Last administered on 11/29/16 12:31; Admin Dose 1 EACH; Start 11/23/16 at 21:00 Calcium Carbonate (Tums) 500 mg TID PEG Last administered on 11/29/16 12:31; Admin Dose 500 MG; Start 11/23/16 at 21:00 Metoprolol Tartrate (Lopressor) 25 mg BID GTB Last administered on 11/28/16 21 :30; Admin Dose 25 MG; Start 11/23/16 at 21:00 Metoclopramide HCl (Reglan Liq) 5 mg Q6 PEG Last administered on 11/29/16 12: 31; Admin Dose 5 MG; Start 11/28/16 at 18:00 Insulin Glargine (Lantus) 20 unit DAILY@08 SC Last administered on 11/29/16 08 :10; Admin Dose 20 UNIT; Start 11/29/16 at 08:00 Insulin Aspart (Novolog Insulin Pen) NOVOLOG *MILD* ALGORITHM Q4 SC Last administered on 11/29/16 12:44; Admin Dose 4 UNIT; Start 11/28/16 at 21:00 DAMIR MARTINEZ MD November 29, 2016 15:49
[2016-11-29] MEDS: LATANOPROST 0.005% 2.5 ML OPH BOTH EYES SCH (20:38)
[2016-11-30] MEDS: METOCLOPRAMIDE (1 MG/ML) 10 ML CUP PEG SCH ×4 (00:08→17:37)
[2016-11-30] MEDS: CREON (12k-38k-60k) 1 CAP NGT SCH ×4 (00:14→17:38)
[2016-11-30] MEDS: INSULIN ASPART [NOVOLOG] 3 ML PEN SC SCH ×6 (00:25→21:05)
[2016-11-30] MEDS: LEVALBUTEROL (NEB) 1.25 MG/0.5 ML AMP HHN SCH ×4 (01:16→19:54)
[2016-11-30] MEDS: IPRATROPIUM (NEB) 0.5 MG/2.5 ML AMP HHN SCH ×4 (01:16→19:54)
[2016-11-30] MEDS: LACTULOSE 30ML CUP PO PRN (05:34)
[2016-11-30 08:00] VITALS: BP 119/61; RESP 17
[2016-11-30] MEDS: ESCITALOPRAM 10 MG TAB GTB SCH (10:24)
[2016-11-30] MEDS: ARTIFICIAL TEARS 15 ML OPH BOTH EYES SCH ×4 (10:25→21:06)
[2016-11-30] MEDS: DORZOLAMIDE/TIMOLOL 10 ML OPH BOTH EYES SCH ×2 (10:25→21:06)
[2016-11-30] MEDS: ASPIRIN 81 MG TAB GTB SCH (10:25)
[2016-11-30] MEDS: CALCIUM CARBONATE 500 MG CHEW TAB PEG SCH ×3 (10:25→21:06)
[2016-11-30] MEDS: L ACIDOPHIL/B LACTIS/B LONGUM CAPSULE PEG SCH ×3 (10:25→21:06)
[2016-11-30] MEDS: PANTOPRAZOLE 40 MG INJ IV SCH (10:25)
[2016-11-30] MEDS: CLOPIDOGREL 75 MG TAB GTB SCH (10:25)
[2016-11-30] MEDS: INSULIN GLARGINE [LANtus] 3 ML PEN SC SCH (10:27)
[2016-11-30] MEDS: METOPROLOL 25 MG TAB GTB SCH ×2 (10:29→21:06)
--- NOTE | 2016-11-30 17:15 | CONS ---
Date/Time of Note Date/Time of Note DATE: 11/30/16 TIME: 17:09 Assessment/Plan Assessment/Plan Chief Complaint/Hosp Course 1. Acute Renal Failure due to ATN . She is now on maintenance hemodialysis . She has less evidence of volume overload .She had hemodialysis yesterday and 3 liters were removed . . 2. ALOC , she continues to be very weak and lethargic . But overall better . She is making progress with PT . 3. liver enzyme elevation has resolved.. 4. CHF , she continues to have lung congestion but her peripheral edema has decreased significantly , she is having fluid removed with dialysis and is overall better . 5. hypocalcemia/hypoalbuminemia , calcium is higher 6. anemia , She has no active GI bleeding now. 7. peripheral vascular disease . 8. respiratory failure , pulmonary function has improved . 9 dysphagia , she has a PEG . 10. discharge planning . She can be discharged to home or SNF , with outpatient dialysis . 11. DM , blood sugars hve been high , will increase Lantus to 26 units a day . . Problems: Consultation Date/Type/Reason Admit Date/Time Sep 20, 2016 at 19:21 Initial Consult Date 09/23/16 Type of Consultation: Pulmonary Referring Provider: ZANDRA ROBISON MD, [facility] 24 HR Interval Summary Free Text/Dictation Patient is able to write her name . She is awake and responsive . Constitutional: improved, no complaints Exam/Review of Systems Vital Signs Vitals Vital Signs Date Time Temp Pulse Resp B/P Pulse Ox O2 Delivery O2 Flow Rate FiO2 11/30/16 14:17 79 18 98 21 11/30/16 08:00 97.6 119/61 11/28/16 15:14 2.0 11/28/16 14:54 Nasal Cannula Intake and Output 11/29/16 11/29/16 11/30/16 15:00 23:00 07:00 Intake Total 1100 ml 360 ml Output Total 3300 ml 0 ml Balance -2200 ml 360 ml Exam Constitutional: alert, frail, obese, oriented Neck: supple Respiratory: clear to auscultation, normal air movement Cardiovascular: edema, regular rate and rhythm Gastrointestinal: soft Extremities: edema Results Result Diagram: 11/29/16 0520 11/29/16 0520 Results 24 hrs Laboratory Tests Test 11/29/16 17:45 11/29/16 20:48 11/30/16 00:19 11/30/16 05:39 Bedside Glucose 186 227 H 220 193 Test 11/30/16 09:07 11/30/16 13:15 Bedside Glucose 246 H 286 H Medications Medications Current Medications Acetaminophen (Tylenol Liquid) 650 mg Q4H PRN NGT PAIN AND OR ELEVATED TEMP Last administered on 11/09/16 11:10; Admin Dose 650 MG; Start 09/21/16 at 02:00 Pantoprazole (Protonix Iv) 40 mg AM IV Last administered on 11/30/16 10:25; Admin Dose 40 MG; Start 09/26/16 at 09:00 Epoetin Raj (Epogen (Esrd)) 10,000 units TuThSa@17 SC Last administered on 18:04; Admin Dose 10,000 UNITS; Start 09/26/16 at 17:00 IV Flush (NS 10 ml) 10 ml PRN PRN IV IV PROTOCOL; Start 09/26/16 at 17:30 Lactulose (Enulose) 20 gm BID PRN PO CONSTIPATION Last administered on 05:34; Admin Dose 20 GM; Start 10/23/16 at 10:30 Amylase/Lipase/ Protease (CREON (73t-92k-60k)) 3 cap Q6 NGT Last administered on 11/30/16 13:18; Admin Dose 3 CAP; Start 10/29/16 at 13:00 Latanoprost (Xalatan) 1 drop HS BOTH EYES Last administered on 11/29/16 20:38 ; Admin Dose 1 DROP; Start 10/31/16 at 21:00 Dorzolamide/ Timolol (Cosopt) 1 drop BID BOTH EYES Last administered on 10:25; Admin Dose 1 DROP; Start 10/31/16 at 21:00 Glucagon (Glucagen) 1 mg Q15M PRN IM DECREASED GLUCOSE; Start 11/03/16 at 18:00 Ondansetron HCl (Zofran Inj) 4 mg Q4H PRN IV NAUSEA AND/OR VOMITING Last administered on 11/17/16 08:19; Admin Dose 4 MG; Start 11/04/16 at 23:00 Eye Lubricant (Artificial Tears Oph) 2 drop QID BOTH EYES Last administered on 11/30/16 13:18; Admin Dose 2 DROP; Start 11/07/16 at 09:00 Sodium Biphosphate/ Sodium Phosphate (Fleet Enema) 133 ml DAILY PRN [place] CONSTIPATION; Start 11/07/16 at 19:00 Calcium Carbonate (Tums Ex) 750 mg Q6H PRN PO dyspepsia Last administered on 09:22; Admin Dose 750 MG; Start 11/09/16 at 12:30 Morphine Sulfate (morphine) 1 mg Q3H PRN IV pain Last administered on 12:49; Admin Dose 1 MG; Start 11/10/16 at 08:00 Aspirin (Aspirin) 81 mg DAILY GTB Last administered on 11/30/16 10:25; Admin Dose 81 MG; Start 11/12/16 at 19:00 Miscellaneous Information 1 ea NOTE XX ; Start 11/14/16 at 10:00 Glucose (Glutose) 15 gm Q15M PRN PO DECREASED GLUCOSE; Start 11/14/16 at 10:00 Glucose (Glutose) 22.5 gm Q15M PRN PO DECREASED GLUCOSE; Start 11/14/16 at 10: 00 Dextrose (D50w Syringe) 25 ml Q15M PRN IV DECREASED GLUCOSE; Start 11/14/16 at 10:00 Dextrose (D50w Syringe) 50 ml Q15M PRN IV DECREASED GLUCOSE; Start 11/14/16 at 10:00 Glucose (Glutose) 15 gm Q15M PRN BUCCAL DECREASED GLUCOSE; Start 11/14/16 at 10 :00 Escitalopram Oxalate (Lexapro) 10 mg DAILY GTB Last administered on 11/30/16 10:24; Admin Dose 10 MG; Start 11/16/16 at 12:30 Clopidogrel Bisulfate (plaVIX) 75 mg DAILY GTB Last administered on 11/30/16 10:25; Admin Dose 75 MG; Start 11/18/16 at 13:00 Lactobacillus Acidophilus (Florajen3 Capsule) 1 each TID PEG Last administered on 11/30/16 13:18; Admin Dose 1 EACH; Start 11/23/16 at 21:00 Calcium Carbonate (Tums) 500 mg TID PEG Last administered on 11/30/16 13:18; Admin Dose 500 MG; Start 11/23/16 at 21:00 Metoprolol Tartrate (Lopressor) 25 mg BID GTB Last administered on 11/30/16 10 :29; Admin Dose 25 MG; Start 11/23/16 at 21:00 Metoclopramide HCl (Reglan Liq) 5 mg Q6 PEG Last administered on 11/30/16 13: 18; Admin Dose 5 MG; Start 11/28/16 at 18:00 Insulin Glargine (Lantus) 20 unit DAILY@08 SC Last administered on 11/30/16 10 :27; Admin Dose 20 UNIT; Start 11/29/16 at 08:00 Insulin Aspart (Novolog Insulin Pen) NOVOLOG *MILD* ALGORITHM Q4 SC Last administered on 11/30/16 13:32; Admin Dose 4 UNIT; Start 11/28/16 at 21:00 DAMIR MARTINEZ MD November 30, 2016 17:15
[2016-11-30] MEDS: EPOETIN 10000 UNITS/1 ML INJ (ESRD) SC SCH (17:38)
[2016-11-30 19:19] VITALS: BP 120/58; RESP 19
[2016-11-30] MEDS: LATANOPROST 0.005% 2.5 ML OPH BOTH EYES SCH (21:06)
[2016-11-30] MEDS: morphine 2 MG INJ IV PRN (21:40)
[2016-12-01] VITALS (10 sets, daily range): BP systolic 87–121; BP diastolic 41–58; PULSE 67–72; RESP 15–16
[2016-12-01] MEDS: INSULIN ASPART [NOVOLOG] 3 ML PEN SC SCH ×6 (00:27→21:00)
[2016-12-01] MEDS: METOCLOPRAMIDE (1 MG/ML) 10 ML CUP PEG SCH ×4 (00:29→17:26)
[2016-12-01] MEDS: CREON (12k-38k-60k) 1 CAP NGT SCH ×4 (00:29→17:26)
[2016-12-01] MEDS: IPRATROPIUM (NEB) 0.5 MG/2.5 ML AMP HHN SCH ×4 (02:15→19:36)
[2016-12-01] MEDS: LEVALBUTEROL (NEB) 1.25 MG/0.5 ML AMP HHN SCH ×4 (02:16→19:37)
[2016-12-01] MEDS ORDERED: INSULIN GLARGINE [LANtus] 3 ML PEN SC SCH (08:00)
[2016-12-01] MEDS: INSULIN GLARGINE [LANtus] 3 ML PEN SC SCH (08:16)
[2016-12-01] MEDS: PANTOPRAZOLE 40 MG INJ IV SCH (08:32)
[2016-12-01] MEDS: DORZOLAMIDE/TIMOLOL 10 ML OPH BOTH EYES SCH ×2 (08:32→21:22)
[2016-12-01] MEDS: ESCITALOPRAM 10 MG TAB GTB SCH (08:32)
[2016-12-01] MEDS: ASPIRIN 81 MG TAB GTB SCH (08:32)
[2016-12-01] MEDS: L ACIDOPHIL/B LACTIS/B LONGUM CAPSULE PEG SCH ×3 (08:32→21:25)
[2016-12-01] MEDS: ARTIFICIAL TEARS 15 ML OPH BOTH EYES SCH ×4 (08:32→21:22)
[2016-12-01] MEDS: CLOPIDOGREL 75 MG TAB GTB SCH (08:33)
[2016-12-01] MEDS: CALCIUM CARBONATE 500 MG CHEW TAB PEG SCH ×3 (08:33→21:16)
[2016-12-01] MEDS: METOPROLOL 25 MG TAB GTB SCH ×2 (08:33→21:22)
[2016-12-01] MEDS: morphine 2 MG INJ IV PRN (11:49)
--- NOTE | 2016-12-01 13:51 | CONS ---
Date/Time of Note Date/Time of Note DATE: 12/01/16 TIME: 13:49 Consult Date/Type/Reason Admit Date/Time Sep 20, 2016 at 19:21 Initial Consult Date 09/23/16 Type of Consultation: Pulmonary Ordering Provider: ZANDRA ROBISON MD, [facility] Subjective No events. Objective Vital Signs Date Time Temp Pulse Resp B/P Pulse Ox O2 Delivery O2 Flow Rate FiO2 12/01/16 07:58 97.8 80 15 109/58 97 12/01/16 02:34 21 11/28/16 15:14 2.0 11/28/16 14:54 Nasal Cannula Intake and Output 11/30/16 11/30/16 12/01/16 15:00 23:00 07:00 Intake Total 660 ml 180 ml Balance 660 ml 180 ml Exam HEENT: Neck supple; no JVD; no LAD CVS: RRR, S1 and S2 CHEST: Clear ABD: Soft, NT, + BS EXT: No c/c/e Results/Medications Result Diagram: 11/29/16 0520 11/29/16 0520 Results 24 hrs Laboratory Tests Test 11/30/16 17:08 11/30/16 21:02 12/01/16 00:23 12/01/16 05:05 Bedside Glucose 312 H 229 H 202 158 Test 12/01/16 08:08 12/01/16 12:32 Bedside Glucose 196 161 Medications Current Medications Acetaminophen (Tylenol Liquid) 650 mg Q4H PRN NGT PAIN AND OR ELEVATED TEMP Last administered on 11/09/16 11:10; Admin Dose 650 MG; Start 09/21/16 at 02:00 Pantoprazole (Protonix Iv) 40 mg AM IV Last administered on 12/01/16 08:32; Admin Dose 40 MG; Start 09/26/16 at 09:00 Epoetin Raj (Epogen (Esrd)) 10,000 units TuThSa@17 SC Last administered on 17:38; Admin Dose 10,000 UNITS; Start 09/26/16 at 17:00 IV Flush (NS 10 ml) 10 ml PRN PRN IV IV PROTOCOL Last administered on 21:07; Admin Dose 10 ML; Start 09/26/16 at 17:30 Lactulose (Enulose) 20 gm BID PRN PO CONSTIPATION Last administered on 05:34; Admin Dose 20 GM; Start 10/23/16 at 10:30 Amylase/Lipase/ Protease (CREON (12k-38k-60k)) 3 cap Q6 NGT Last administered on 12/01/16 12:34; Admin Dose 3 CAP; Start 10/29/16 at 13:00 Latanoprost (Xalatan) 1 drop HS BOTH EYES Last administered on 11/30/16 21:06 ; Admin Dose 1 DROP; Start 10/31/16 at 21:00 Dorzolamide/ Timolol (Cosopt) 1 drop BID BOTH EYES Last administered on 08:32; Admin Dose 1 DROP; Start 10/31/16 at 21:00 Glucagon (Glucagen) 1 mg Q15M PRN IM DECREASED GLUCOSE; Start 11/03/16 at 18:00 Ondansetron HCl (Zofran Inj) 4 mg Q4H PRN IV NAUSEA AND/OR VOMITING Last administered on 11/17/16 08:19; Admin Dose 4 MG; Start 11/04/16 at 23:00 Eye Lubricant (Artificial Tears Oph) 2 drop QID BOTH EYES Last administered on 12/01/16 12:35; Admin Dose 2 DROP; Start 11/07/16 at 09:00 Sodium Biphosphate/ Sodium Phosphate (Fleet Enema) 133 ml DAILY PRN [place] CONSTIPATION; Start 11/07/16 at 19:00 Calcium Carbonate (Tums Ex) 750 mg Q6H PRN PO dyspepsia Last administered on 09:22; Admin Dose 750 MG; Start 11/09/16 at 12:30 Morphine Sulfate (morphine) 1 mg Q3H PRN IV pain Last administered on 11:49; Admin Dose 1 MG; Start 11/10/16 at 08:00 Aspirin (Aspirin) 81 mg DAILY GTB Last administered on 12/01/16 08:32; Admin Dose 81 MG; Start 11/12/16 at 19:00 Miscellaneous Information 1 ea NOTE XX ; Start 11/14/16 at 10:00 Glucose (Glutose) 15 gm Q15M PRN PO DECREASED GLUCOSE; Start 11/14/16 at 10:00 Glucose (Glutose) 22.5 gm Q15M PRN PO DECREASED GLUCOSE; Start 11/14/16 at 10: 00 Dextrose (D50w Syringe) 25 ml Q15M PRN IV DECREASED GLUCOSE; Start 11/14/16 at 10:00 Dextrose (D50w Syringe) 50 ml Q15M PRN IV DECREASED GLUCOSE; Start 11/14/16 at 10:00 Glucose (Glutose) 15 gm Q15M PRN BUCCAL DECREASED GLUCOSE; Start 11/14/16 at 10 :00 Escitalopram Oxalate (Lexapro) 10 mg DAILY GTB Last administered on 12/01/16 08:32; Admin Dose 10 MG; Start 11/16/16 at 12:30 Clopidogrel Bisulfate (plaVIX) 75 mg DAILY GTB Last administered on 12/01/16 08:33; Admin Dose 75 MG; Start 11/18/16 at 13:00 Lactobacillus Acidophilus (Florajen3 Capsule) 1 each TID PEG Last administered on 12/01/16 12:34; Admin Dose 1 EACH; Start 11/23/16 at 21:00 Calcium Carbonate (Tums) 500 mg TID PEG Last administered on 12/01/16 12:34; Admin Dose 500 MG; Start 11/23/16 at 21:00 Metoprolol Tartrate (Lopressor) 25 mg BID GTB Last administered on 12/01/16 08 :33; Admin Dose 25 MG; Start 11/23/16 at 21:00 Metoclopramide HCl (Reglan Liq) 5 mg Q6 PEG Last administered on 12/01/16 12: 35; Admin Dose 5 MG; Start 11/28/16 at 18:00 Insulin Aspart (Novolog Insulin Pen) NOVOLOG *MILD* ALGORITHM Q4 SC Last administered on 12/01/16 12:49; Admin Dose 1 UNIT; Start 11/28/16 at 21:00 Insulin Glargine (Lantus) 26 unit DAILY@08 SC Last administered on 12/01/16 08 :16; Admin Dose 26 UNIT; Start 12/01/16 at 08:00 Assessment/Plan Additional Assessment/Plan IMP: 1. s/p Resp Insufficiency 2. JONAH 3. Pleural effusions 4. Myopathy 5. Anemia RECS: 1. ICS 2. PT/OT 3. Titrate FiO2 LOGAN BURKETT MD December 01, 2016 13:51
--- NOTE | 2016-12-01 14:51 | CONS ---
Date/Time of Note Date/Time of Note DATE: 12/01/16 TIME: 14:44 Assessment/Plan Assessment/Plan Chief Complaint/Hosp Course 1. Acute Renal Failure due to ATN . She is now on maintenance hemodialysis . She has less evidence of volume overload .She has hemodialysis ordered for today . 2. ALOC , she continues to be very weak and lethargic . But overall better . She is making progress with PT . 3. liver enzyme elevation has resolved.. 4. CHF , she continues to have lung congestion but her peripheral edema has decreased significantly , she is having fluid removed with dialysis and is overall better . 5. hypocalcemia/hypoalbuminemia , calcium is higher 6. anemia , She has no active GI bleeding now. 7. peripheral vascular disease . 8. respiratory failure , pulmonary function has improved . 9 dysphagia , she has a PEG . 10. discharge planning . She can be discharged to home or SNF , with outpatient dialysis . 11. DM , blood sugars are lower today on Lantus to 26 units a day . . Problems: Consultation Date/Type/Reason Admit Date/Time Sep 20, 2016 at 19:21 Initial Consult Date 09/23/16 Type of Consultation: Pulmonary Referring Provider: ZANDRA ROBISON MD, [facility] HR Interval Summary Free Text/Dictation She is awake and responsive . Constitutional: no complaints Exam/Review of Systems Vital Signs Vitals Vital Signs Date Time Temp Pulse Resp B/P Pulse Ox O2 Delivery O2 Flow Rate FiO2 12/01/16 14:13 65 18 98 21 12/01/16 07:58 97.8 109/58 11/28/16 15:14 2.0 11/28/16 14:54 Nasal Cannula Intake and Output 11/30/16 11/30/16 12/01/16 15:00 23:00 07:00 Intake Total 660 ml 180 ml Balance 660 ml 180 ml Exam Constitutional: alert, frail, obese, oriented Respiratory: clear to auscultation Cardiovascular: regular rate and rhythm Musculoskeletal: nl extremities to inspection Results Result Diagram: 11/29/16 0520 11/29/16 0520 Results 24 hrs Laboratory Tests Test 11/30/16 17:08 11/30/16 21:02 12/01/16 00:23 12/01/16 05:05 Bedside Glucose 312 H 229 H 202 158 Test 12/01/16 08:08 12/01/16 12:32 Bedside Glucose 196 161 Medications Medications Current Medications Acetaminophen (Tylenol Liquid) 650 mg Q4H PRN NGT PAIN AND OR ELEVATED TEMP Last administered on 11/09/16 11:10; Admin Dose 650 MG; Start 09/21/16 at 02:00 Pantoprazole (Protonix Iv) 40 mg AM IV Last administered on 12/01/16 08:32; Admin Dose 40 MG; Start 09/26/16 at 09:00 Epoetin Raj (Epogen (Esrd)) 10,000 units TuThSa@17 SC Last administered on 17:38; Admin Dose 10,000 UNITS; Start 09/26/16 at 17:00 IV Flush (NS 10 ml) 10 ml PRN PRN IV IV PROTOCOL Last administered on 21:07; Admin Dose 10 ML; Start 09/26/16 at 17:30 Lactulose (Enulose) 20 gm BID PRN PO CONSTIPATION Last administered on 05:34; Admin Dose 20 GM; Start 10/23/16 at 10:30 Amylase/Lipase/ Protease (CREON (12k-38k-60k)) 3 cap Q6 NGT Last administered on 12/01/16 12:34; Admin Dose 3 CAP; Start 10/29/16 at 13:00 Latanoprost (Xalatan) 1 drop HS BOTH EYES Last administered on 11/30/16 21:06 ; Admin Dose 1 DROP; Start 10/31/16 at 21:00 Dorzolamide/ Timolol (Cosopt) 1 drop BID BOTH EYES Last administered on 08:32; Admin Dose 1 DROP; Start 10/31/16 at 21:00 Glucagon (Glucagen) 1 mg Q15M PRN IM DECREASED GLUCOSE; Start 11/03/16 at 18:00 Ondansetron HCl (Zofran Inj) 4 mg Q4H PRN IV NAUSEA AND/OR VOMITING Last administered on 11/17/16 08:19; Admin Dose 4 MG; Start 11/04/16 at 23:00 Eye Lubricant (Artificial Tears Oph) 2 drop QID BOTH EYES Last administered on 12/01/16 12:35; Admin Dose 2 DROP; Start 11/07/16 at 09:00 Sodium Biphosphate/ Sodium Phosphate (Fleet Enema) 133 ml DAILY PRN [place] CONSTIPATION; Start 11/07/16 at 19:00 Calcium Carbonate (Tums Ex) 750 mg Q6H PRN PO dyspepsia Last administered on 09:22; Admin Dose 750 MG; Start 11/09/16 at 12:30 Morphine Sulfate (morphine) 1 mg Q3H PRN IV pain Last administered on 11:49; Admin Dose 1 MG; Start 11/10/16 at 08:00 Aspirin (Aspirin) 81 mg DAILY GTB Last administered on 12/01/16 08:32; Admin Dose 81 MG; Start 11/12/16 at 19:00 Miscellaneous Information 1 ea NOTE XX ; Start 11/14/16 at 10:00 Glucose (Glutose) 15 gm Q15M PRN PO DECREASED GLUCOSE; Start 11/14/16 at 10:00 Glucose (Glutose) 22.5 gm Q15M PRN PO DECREASED GLUCOSE; Start 11/14/16 at 10: 00 Dextrose (D50w Syringe) 25 ml Q15M PRN IV DECREASED GLUCOSE; Start 11/14/16 at 10:00 Dextrose (D50w Syringe) 50 ml Q15M PRN IV DECREASED GLUCOSE; Start 11/14/16 at 10:00 Glucose (Glutose) 15 gm Q15M PRN BUCCAL DECREASED GLUCOSE; Start 11/14/16 at 10 :00 Escitalopram Oxalate (Lexapro) 10 mg DAILY GTB Last administered on 12/01/16 08:32; Admin Dose 10 MG; Start 11/16/16 at 12:30 Clopidogrel Bisulfate (plaVIX) 75 mg DAILY GTB Last administered on 12/01/16 08:33; Admin Dose 75 MG; Start 11/18/16 at 13:00 Lactobacillus Acidophilus (Florajen3 Capsule) 1 each TID PEG Last administered on 12/01/16 12:34; Admin Dose 1 EACH; Start 11/23/16 at 21:00 Calcium Carbonate (Tums) 500 mg TID PEG Last administered on 12/01/16 12:34; Admin Dose 500 MG; Start 11/23/16 at 21:00 Metoprolol Tartrate (Lopressor) 25 mg BID GTB Last administered on 12/01/16 08 :33; Admin Dose 25 MG; Start 11/23/16 at 21:00 Metoclopramide HCl (Reglan Liq) 5 mg Q6 PEG Last administered on 12/01/16 12: 35; Admin Dose 5 MG; Start 11/28/16 at 18:00 Insulin Aspart (Novolog Insulin Pen) NOVOLOG *MILD* ALGORITHM Q4 SC Last administered on 12/01/16 12:49; Admin Dose 1 UNIT; Start 11/28/16 at 21:00 Insulin Glargine (Lantus) 26 unit DAILY@08 SC Last administered on 12/01/16 08 :16; Admin Dose 26 UNIT; Start 12/01/16 at 08:00 DAMIR MARTINEZ MD December 01, 2016 14:51
[2016-12-01] MEDS: ONDANSETRON 4 MG INJ IV PRN (15:04)
[2016-12-01] MEDS ORDERED: HEPARIN 1000 UNITS/ML 10 ML INJ CATHETER ONE (17:30)
[2016-12-01] MEDS: ALBUMIN HUMAN 25% 100 ML IV PRN (18:15)
[2016-12-01] MEDS: LATANOPROST 0.005% 2.5 ML OPH BOTH EYES SCH (21:00)
[2016-12-02] MEDS: METOCLOPRAMIDE (1 MG/ML) 10 ML CUP PEG SCH ×4 (00:47→18:00)
[2016-12-02] MEDS: CREON (12k-38k-60k) 1 CAP NGT SCH ×4 (00:59→18:00)
[2016-12-02] MEDS: INSULIN ASPART [NOVOLOG] 3 ML PEN SC SCH ×6 (01:32→22:06)
[2016-12-02] MEDS: IPRATROPIUM (NEB) 0.5 MG/2.5 ML AMP HHN SCH ×4 (01:52→19:38)
[2016-12-02] MEDS: LEVALBUTEROL (NEB) 1.25 MG/0.5 ML AMP HHN SCH ×4 (01:52→19:38)
[2016-12-02] MEDS ORDERED: Insulin NOVOLOG SS MILD Algorithm (NPO/TPN/ENTERAL FEEDS) SC SCH (05:00)
[2016-12-02 06:06] LABS: ADD SCAN DIFF NO
[2016-12-02 06:09] LABS: ABNORMAL IP MESSAGE 1; HEMATOCRIT 32.9 % (37.0-47.0); HEMOGLOBIN 9.7 g/dl (12.0-16.0); MEAN CORPUSCULAR HGB CONC 29.5 g/dl (32.0-37.0); MEAN CORPUSCULAR VOLUME 95.1 fl (82.0-101.0); MEAN PLATELET VOLUME 10.3 fl (7.4-10.4); PLATELET COUNT 291 10^3/UL (140-415); RED BLOOD COUNT 3.46 10^6/ul (4.20-5.40); RED CELL DISTRIBUTION WIDTH 18.4 % (11.5-14.5)
[2016-12-02 06:29] LABS: ALBUMIN 2.9 g/dl (3.3-4.9); ALBUMIN/GLOBULIN RATIO 0.76; BILIRUBIN,INDIRECT 0.1 mg/dl (0-1.1); BILIRUBIN,TOTAL 0.1 mg/dl (0.2-1.3); CALCIUM 9.1 mg/dl (8.4-10.2); CREATININE 1.66 mg/dl (0.44-1.00); PHOSPHORUS 2.9 mg/dl (2.5-4.9); POTASSIUM 3.6 mmol/L (3.5-5.1); TOTAL PROTEIN 6.7 g/dl (6.1-8.1)
[2016-12-02 07:47] VITALS: BP 112/56; RESP 16
[2016-12-02] MEDS: CALCIUM CARBONATE 500 MG CHEW TAB PEG SCH ×3 (08:59→22:01)
[2016-12-02] MEDS: ESCITALOPRAM 10 MG TAB GTB SCH (08:59)
[2016-12-02] MEDS: ASPIRIN 81 MG TAB GTB SCH (08:59)
[2016-12-02] MEDS: CLOPIDOGREL 75 MG TAB GTB SCH (08:59)
[2016-12-02 09:00] LABS: LYMPHOCYTES # 2.5 10^3/ul (0.8-2.9); MONOCYTE # 2.1 10^3/ul (0.3-0.9); NEUTROPHIL # 35.1 10^3/ul (1.6-7.5); POLYCHROMASIA 1+
[2016-12-02] MEDS: L ACIDOPHIL/B LACTIS/B LONGUM CAPSULE PEG SCH ×3 (09:00→22:01)
[2016-12-02] MEDS: ARTIFICIAL TEARS 15 ML OPH BOTH EYES SCH ×4 (09:01→21:59)
[2016-12-02] MEDS: METOPROLOL 25 MG TAB GTB SCH ×2 (09:01→22:01)
[2016-12-02] MEDS: DORZOLAMIDE/TIMOLOL 10 ML OPH BOTH EYES SCH ×2 (09:02→21:59)
[2016-12-02] MEDS: INSULIN GLARGINE [LANtus] 3 ML PEN SC SCH (09:26)
[2016-12-02] MEDS: PANTOPRAZOLE 40 MG INJ IV SCH (09:36)
--- NOTE | 2016-12-02 14:52 | CONS ---
Date/Time of Note Date/Time of Note DATE: 12/02/16 TIME: 14:51 Consult Date/Type/Reason Admit Date/Time Sep 20, 2016 at 19:21 Initial Consult Date 09/23/16 Type of Consultation: Pulmonary Ordering Provider: ZANDRA ROBISON MD, [facility] Subjective No events. Objective Vital Signs Date Time Temp Pulse Resp B/P Pulse Ox O2 Delivery O2 Flow Rate FiO2 12/02/16 13:17 75 16 100 21 12/02/16 07:47 97.6 112/56 11/28/16 15:14 2.0 11/28/16 14:54 Nasal Cannula Intake and Output 12/01/16 12/01/16 12/02/16 15:00 23:00 07:00 Intake Total 1500 ml 240 ml Output Total 500 ml Balance 1000 ml 240 ml Exam HEENT: Neck supple; no JVD; no LAD CVS: RRR, S1 and S2 CHEST: Clear ABD: Soft, NT, + BS EXT: No c/c/e Results/Medications Result Diagram: 12/02/160 12/02/16 0440 Results 24 hrs Laboratory Tests Test 12/01/16 17:18 12/01/16 21:18 12/02/16 00:53 12/02/16 01:30 Bedside Glucose 142 173 226 H 234 H Test 12/02/16 04:40 12/02/16 05:40 12/02/16 09:18 12/02/16 13:05 White Blood Count 41.8 #H Red Blood Count 3.46 L Hemoglobin 9.7 L Hematocrit 32.9 L Mean Corpuscular Volume 95.1 Mean Corpuscular Hemoglobin 28.0 L Mean Corpuscular Hemoglobin Concent 29.5 L Red Cell Distribution Width 18.4 H Platelet Count 291 Mean Platelet Volume 10.3 Neutrophils % 84.0 H Band Neutrophils % 5.0 Lymphocytes % 6.0 L Monocytes % 5.0 Eosinophils % Neutrophils # 35.1 H Lymphocytes # 2.5 Monocytes # 2.1 H Eosinophils # Polychromasia 1+ Tear Drop Cells Sodium Level 141 Potassium Level 3.6 Chloride Level 96 L Carbon Dioxide Level 32 H Anion Gap 17 H Blood Urea Nitrogen 35 H Creatinine 1.66 H Glucose Level 198 Calcium Level 9.1 Phosphorus Level 2.9 Total Bilirubin 0.1 L Direct Bilirubin 0.00 Indirect Bilirubin 0.1 Aspartate Amino Transf (AST/SGOT) 38 Alanine Aminotransferase (ALT/SGPT) 28 Alkaline Phosphatase 195 H Total Protein 6.7 Albumin 2.9 L Globulin 3.80 H Albumin/Globulin Ratio 0.76 Parathyroid Hormone (Intact) Bedside Glucose 223 H 288 H 292 H Medications Current Medications Acetaminophen (Tylenol Liquid) 650 mg Q4H PRN NGT PAIN AND OR ELEVATED TEMP Last administered on 11/09/16 11:10; Admin Dose 650 MG; Start 09/21/16 at 02:00 Pantoprazole (Protonix Iv) 40 mg AM IV Last administered on 12/02/16 09:36; Admin Dose 40 MG; Start 09/26/16 at 09:00 Epoetin Raj (Epogen (Esrd)) 10,000 units TuThSa@17 SC Last administered on 17:38; Admin Dose 10,000 UNITS; Start 09/26/16 at 17:00 IV Flush (NS 10 ml) 10 ml PRN PRN IV IV PROTOCOL Last administered on 21:07; Admin Dose 10 ML; Start 09/26/16 at 17:30 Lactulose (Enulose) 20 gm BID PRN PO CONSTIPATION Last administered on 05:34; Admin Dose 20 GM; Start 10/23/16 at 10:30 Amylase/Lipase/ Protease (CREON (12k-38k-60k)) 3 cap Q6 NGT Last administered on 12/02/16 12:56; Admin Dose 3 CAP; Start 10/29/16 at 13:00 Latanoprost (Xalatan) 1 drop HS BOTH EYES Last administered on 11/30/16 21:06 ; Admin Dose 1 DROP; Start 10/31/16 at 21:00 Dorzolamide/ Timolol (Cosopt) 1 drop BID BOTH EYES Last administered on 09:02; Admin Dose 1 DROP; Start 10/31/16 at 21:00 Glucagon (Glucagen) 1 mg Q15M PRN IM DECREASED GLUCOSE; Start 11/03/16 at 18:00 Ondansetron HCl (Zofran Inj) 4 mg Q4H PRN IV NAUSEA AND/OR VOMITING Last administered on 12/01/16 15:04; Admin Dose 4 MG; Start 11/04/16 at 23:00 Eye Lubricant (Artificial Tears Oph) 2 drop QID BOTH EYES Last administered on 12/02/16 12:56; Admin Dose 2 DROP; Start 11/07/16 at 09:00 Calcium Carbonate (Tums Ex) 750 mg Q6H PRN PO dyspepsia Last administered on 09:22; Admin Dose 750 MG; Start 11/09/16 at 12:30 Morphine Sulfate (morphine) 1 mg Q3H PRN IV pain Last administered on 11:49; Admin Dose 1 MG; Start 11/10/16 at 08:00 Aspirin (Aspirin) 81 mg DAILY GTB Last administered on 12/02/16 08:59; Admin Dose 81 MG; Start 11/12/16 at 19:00 Miscellaneous Information 1 ea NOTE XX ; Start 11/14/16 at 10:00 Glucose (Glutose) 15 gm Q15M PRN PO DECREASED GLUCOSE; Start 11/14/16 at 10:00 Glucose (Glutose) 22.5 gm Q15M PRN PO DECREASED GLUCOSE; Start 11/14/16 at 10: 00 Dextrose (D50w Syringe) 25 ml Q15M PRN IV DECREASED GLUCOSE; Start 11/14/16 at 10:00 Dextrose (D50w Syringe) 50 ml Q15M PRN IV DECREASED GLUCOSE; Start 11/14/16 at 10:00 Glucose (Glutose) 15 gm Q15M PRN BUCCAL DECREASED GLUCOSE; Start 11/14/16 at 10 :00 Escitalopram Oxalate (Lexapro) 10 mg DAILY GTB Last administered on 12/02/16 08:59; Admin Dose 10 MG; Start 11/16/16 at 12:30 Clopidogrel Bisulfate (plaVIX) 75 mg DAILY GTB Last administered on 12/02/16 08:59; Admin Dose 75 MG; Start 11/18/16 at 13:00 Lactobacillus Acidophilus (Florajen3 Capsule) 1 each TID PEG Last administered on 12/01/16 21:25; Admin Dose 1 EACH; Start 11/23/16 at 21:00 Calcium Carbonate (Tums) 500 mg TID PEG Last administered on 12/02/16 12:56; Admin Dose 500 MG; Start 11/23/16 at 21:00 Metoprolol Tartrate (Lopressor) 25 mg BID GTB Last administered on 12/02/16 09 :01; Admin Dose 25 MG; Start 11/23/16 at 21:00 Metoclopramide HCl (Reglan Liq) 5 mg Q6 PEG Last administered on 12/02/16 12: 56; Admin Dose 5 MG; Start 11/28/16 at 18:00 Insulin Glargine (Lantus) 26 unit DAILY@08 SC Last administered on 12/02/16 09 :26; Admin Dose 26 UNIT; Start 12/01/16 at 08:00 Insulin Aspart (Novolog Insulin Pen) (Adult SC Insulin - Mild Algorithm)... Q4 SC Last administered on 12/02/16 13:09; Admin Dose 4 UNIT; Start 12/02/16 at 01:00 Assessment/Plan Additional Assessment/Plan IMP: 1. s/p Resp Insufficiency 2. JONAH 3. Pleural effusions 4. Myopathy 5. Anemia RECS: 1. ICS 2. PT/OT 3. Off O2 LOGAN BURKETT MD December 02, 2016 14:52
--- NOTE | 2016-12-02 15:20 | CONS ---
Date/Time of Note Date/Time of Note DATE: 12/02/16 TIME: 15:06 Assessment/Plan Assessment/Plan Chief Complaint/Hosp Course 1. Acute Renal Failure due to ATN . She is now on maintenance hemodialysis . She has less evidence of volume overload .She has hemodialysis ordered for tomorrow . 2. ALOC , she continues to be very weak and lethargic . But overall better . She is making progress with PT . 3. liver enzyme elevation has resolved.. 4. CHF , she continues to have lung congestion but her peripheral edema has decreased significantly , she is having fluid removed with dialysis and is overall better . 5. hypocalcemia/hypoalbuminemia , calcium is higher 6. anemia , She has no active GI bleeding now. 7. peripheral vascular disease . 8. respiratory failure , pulmonary function has improved . 9 dysphagia , she has a PEG . 10. discharge planning . She can be discharged to home or SNF , with outpatient dialysis . 11. DM , blood sugars are high again today , will increase Lantus to 28 units a day . 12. she has an elevated WBC , concerned about infection , will culture blood and urine . . Problems: Consultation Date/Type/Reason Admit Date/Time Sep 20, 2016 at 19:21 Initial Consult Date 09/23/16 Type of Consultation: renal Referring Provider: Z[facility]DRA ROBISON MD, [facility] HR Interval Summary Free Text/Dictation She is lethargic , but rouses to verbal stimuli and is responsive . Exam/Review of Systems Vital Signs Vitals Vital Signs Date Time Temp Pulse Resp B/P Pulse Ox O2 Delivery O2 Flow Rate FiO2 12/02/16 13:17 75 16 100 21 12/02/16 07:47 97.6 112/56 11/28/16 15:14 2.0 11/28/16 14:54 Nasal Cannula Intake and Output 12/01/16 12/01/16 12/02/16 15:00 23:00 07:00 Intake Total 1500 ml 240 ml Output Total 500 ml Balance 1000 ml 240 ml Exam gangrene of R first toe . Constitutional: frail, obese Respiratory: clear to auscultation, diminished breath sounds Cardiovascular: edema, regular rate and rhythm Gastrointestinal: soft Musculoskeletal: nl extremities to inspection Results Result Diagram: 12/02/16 0440 12/02/16 0440 Results 24 hrs Laboratory Tests Test 12/01/16 17:18 5/28/17 21:18 12/02/16 00:53 12/02/16 01:30 Bedside Glucose 142 173 226 H 234 H Test 12/02/16 04:40 12/02/16 05:40 12/02/16 09:18 12/02/16 13:05 White Blood Count 41.8 #H Red Blood Count 3.46 L Hemoglobin 9.7 L Hematocrit 32.9 L Mean Corpuscular Volume 95.1 Mean Corpuscular Hemoglobin 28.0 L Mean Corpuscular Hemoglobin Concent 29.5 L Red Cell Distribution Width 18.4 H Platelet Count 291 Mean Platelet Volume 10.3 Neutrophils % 84.0 H Band Neutrophils % 5.0 Lymphocytes % 6.0 L Monocytes % 5.0 Eosinophils % Neutrophils # 35.1 H Lymphocytes # 2.5 Monocytes # 2.1 H Eosinophils # Polychromasia 1+ Tear Drop Cells Sodium Level 141 Potassium Level 3.6 Chloride Level 96 L Carbon Dioxide Level 32 H Anion Gap 17 H Blood Urea Nitrogen 35 H Creatinine 1.66 H Glucose Level 198 Calcium Level 9.1 Phosphorus Level 2.9 Total Bilirubin 0.1 L Direct Bilirubin 0.00 Indirect Bilirubin 0.1 Aspartate Amino Transf (AST/SGOT) 38 Alanine Aminotransferase (ALT/SGPT) 28 Alkaline Phosphatase 195 H Total Protein 6.7 Albumin 2.9 L Globulin 3.80 H Albumin/Globulin Ratio 0.76 Parathyroid Hormone (Intact) Bedside Glucose 223 H 288 H 292 H Medications Medications Current Medications Acetaminophen (Tylenol Liquid) 650 mg Q4H PRN NGT PAIN AND OR ELEVATED TEMP Last administered on 11/09/16 11:10; Admin Dose 650 MG; Start 09/21/16 at 02:00 Pantoprazole (Protonix Iv) 40 mg AM IV Last administered on 12/02/16 09:36; Admin Dose 40 MG; Start 09/26/16 at 09:00 Epoetin Raj (Epogen (Esrd)) 10,000 units TuThSa@17 SC Last administered on 17:38; Admin Dose 10,000 UNITS; Start 09/26/16 at 17:00 IV Flush (NS 10 ml) 10 ml PRN PRN IV IV PROTOCOL Last administered on 21:07; Admin Dose 10 ML; Start 09/26/16 at 17:30 Lactulose (Enulose) 20 gm BID PRN PO CONSTIPATION Last administered on 05:34; Admin Dose 20 GM; Start 10/23/16 at 10:30 Amylase/Lipase/ Protease (CREON (30y-09k-60k)) 3 cap Q6 NGT Last administered on 12/02/16 12:56; Admin Dose 3 CAP; Start 10/29/16 at 13:00 Latanoprost (Xalatan) 1 drop HS BOTH EYES Last administered on 11/30/16 21:06 ; Admin Dose 1 DROP; Start 10/31/16 at 21:00 Dorzolamide/ Timolol (Cosopt) 1 drop BID BOTH EYES Last administered on 09:02; Admin Dose 1 DROP; Start 10/31/16 at 21:00 Glucagon (Glucagen) 1 mg Q15M PRN IM DECREASED GLUCOSE; Start 11/03/16 at 18:00 Ondansetron HCl (Zofran Inj) 4 mg Q4H PRN IV NAUSEA AND/OR VOMITING Last administered on 12/01/16 15:04; Admin Dose 4 MG; Start 11/04/16 at 23:00 Eye Lubricant (Artificial Tears Oph) 2 drop QID BOTH EYES Last administered on 12/02/16 12:56; Admin Dose 2 DROP; Start 11/07/16 at 09:00 Calcium Carbonate (Tums Ex) 750 mg Q6H PRN PO dyspepsia Last administered on 09:22; Admin Dose 750 MG; Start 11/09/16 at 12:30 Morphine Sulfate (morphine) 1 mg Q3H PRN IV pain Last administered on 11:49; Admin Dose 1 MG; Start 11/10/16 at 08:00 Aspirin (Aspirin) 81 mg DAILY GTB Last administered on 12/02/16 08:59; Admin Dose 81 MG; Start 11/12/16 at 19:00 Miscellaneous Information 1 ea NOTE XX ; Start 11/14/16 at 10:00 Glucose (Glutose) 15 gm Q15M PRN PO DECREASED GLUCOSE; Start 11/14/16 at 10:00 Glucose (Glutose) 22.5 gm Q15M PRN PO DECREASED GLUCOSE; Start 11/14/16 at 10: 00 Dextrose (D50w Syringe) 25 ml Q15M PRN IV DECREASED GLUCOSE; Start 11/14/16 at 10:00 Dextrose (D50w Syringe) 50 ml Q15M PRN IV DECREASED GLUCOSE; Start 11/14/16 at 10:00 Glucose (Glutose) 15 gm Q15M PRN BUCCAL DECREASED GLUCOSE; Start 11/14/16 at 10 :00 Escitalopram Oxalate (Lexapro) 10 mg DAILY GTB Last administered on 12/02/16 08:59; Admin Dose 10 MG; Start 11/16/16 at 12:30 Clopidogrel Bisulfate (plaVIX) 75 mg DAILY GTB Last administered on 12/02/16 08:59; Admin Dose 75 MG; Start 11/18/16 at 13:00 Lactobacillus Acidophilus (Florajen3 Capsule) 1 each TID PEG Last administered on 12/01/16 21:25; Admin Dose 1 EACH; Start 11/23/16 at 21:00 Calcium Carbonate (Tums) 500 mg TID PEG Last administered on 12/02/16 12:56; Admin Dose 500 MG; Start 11/23/16 at 21:00 Metoprolol Tartrate (Lopressor) 25 mg BID GTB Last administered on 12/02/16 09 :01; Admin Dose 25 MG; Start 11/23/16 at 21:00 Metoclopramide HCl (Reglan Liq) 5 mg Q6 PEG Last administered on 12/02/16 12: 56; Admin Dose 5 MG; Start 11/28/16 at 18:00 Insulin Glargine (Lantus) 26 unit DAILY@08 SC Last administered on 12/02/16 09 :26; Admin Dose 26 UNIT; Start 12/01/16 at 08:00 Insulin Aspart (Novolog Insulin Pen) (Adult SC Insulin - Mild Algorithm)... Q4 SC Last administered on 12/02/16 13:09; Admin Dose 4 UNIT; Start 12/02/16 at 01:00 DAMIR MARTINEZ MD December 02, 2016 15:16
--- NOTE | 2016-12-02 17:55 | RADRPT ---
PROCEDURE: XR Chest. CLINICAL INDICATION: cough TECHNIQUE: Single frontal view of the chest was obtained COMPARISON: 11/25/2016 FINDINGS: The left-sided PICC line remains in satisfactory position. The right-sided Perma-Cath also remains in satisfactory position. There is persistent fullness in the superior mediastinum that is likely exaggerated by the portable AP nature of the film. The heart is upper limits of normal in size. There is a persistent patchy infiltrate in the left lower lobe obscuring the left heart border. There has been slight improvement in aeration to the right lower lobe. Small bilateral pleural effusions are also slightly improved. There is no pleural effusion or pneumothorax. The bones and soft tissue show no acute change. IMPRESSION: 1. Persistent patchy infiltrate in the left lower lobe obscuring the left heart border. 2. Slight improvement in aeration to the right lower lobe. 3. Slight improvement to a small bilateral pleural effusions. 4. The left-sided PICC line and right-sided Perma-Cath remain in position. RPTAT:AAJJ Physician Bandar Date Time Electronically viewed and signed by Physician Bandar on 12/02/2016 17:55 /
[2016-12-02 19:05] VITALS: BP 133/60; RESP 16
[2016-12-02] MEDS: LATANOPROST 0.005% 2.5 ML OPH BOTH EYES SCH (22:29)
[2016-12-03] VITALS (9 sets, daily range): BP systolic 98–112; BP diastolic 49–62; PULSE 80–86; RESP 18
[2016-12-03] MEDS: CREON (12k-38k-60k) 1 CAP NGT SCH ×4 (01:17→18:43)
[2016-12-03] MEDS: METOCLOPRAMIDE 10 MG TAB PEG SCH ×4 (01:18→18:10)
[2016-12-03] MEDS: LEVALBUTEROL (NEB) 1.25 MG/0.5 ML AMP HHN SCH ×4 (01:40→19:58)
[2016-12-03] MEDS: IPRATROPIUM (NEB) 0.5 MG/2.5 ML AMP HHN SCH ×4 (01:40→19:58)
[2016-12-03] MEDS: INSULIN ASPART [NOVOLOG] 3 ML PEN SC SCH ×6 (01:44→20:56)
[2016-12-03] MEDS ORDERED: VITAMIN A & D 5 GM OINT PACKET TOP ONE (01:46)
[2016-12-03 05:32] LABS: ADD SCAN DIFF NO
[2016-12-03 05:38] LABS: ABNORMAL IP MESSAGE 1; HEMATOCRIT 33.3 % (37.0-47.0); HEMOGLOBIN 10.1 g/dl (12.0-16.0); MEAN CORPUSCULAR HEMOGLOBIN 28.8 pg (29.0-33.0); MEAN CORPUSCULAR HGB CONC 30.3 g/dl (32.0-37.0); MEAN CORPUSCULAR VOLUME 94.9 fl (82.0-101.0); MEAN PLATELET VOLUME 10.6 fl (7.4-10.4); PLATELET COUNT 255 10^3/UL (140-415); RED BLOOD COUNT 3.51 10^6/ul (4.20-5.40); RED CELL DISTRIBUTION WIDTH 17.9 % (11.5-14.5); WHITE BLOOD COUNT 47.4 10^3/ul (4.8-10.8)
[2016-12-03 05:52] LABS: ALBUMIN 2.5 g/dl (3.3-4.9)
[2016-12-03 05:53] LABS: POTASSIUM 3.5 mmol/L (3.5-5.1)
[2016-12-03 05:55] LABS: ALBUMIN/GLOBULIN RATIO 0.67; CREATININE 2.11 mg/dl (0.44-1.00); TOTAL PROTEIN 6.2 g/dl (6.1-8.1)
[2016-12-03 05:56] LABS: CALCIUM 9.2 mg/dl (8.4-10.2)
[2016-12-03] MEDS ORDERED: LEVOFLOXACIN 500MG/D5W (PMX) 100 ML IVPB ONE ×2 (07:00→07:30)
[2016-12-03] MEDS: LEVOFLOXACIN 250MG/D5W (PMX) 50 ML IVPB SCH (07:30)
--- NOTE | 2016-12-03 08:10 | CONS ---
Date/Time of Note Date/Time of Note DATE: 12/03/16 TIME: 08:05 Assessment/Plan Assessment/Plan Chief Complaint/Hosp Course 1. Acute Renal Failure due to ATN . She is now on maintenance hemodialysis . She has less evidence of volume overload .She has hemodialysis ordered for tomorrow . 2. ALOC , she continues to be very weak and lethargic . But overall better . She is making progress with PT . 3. liver enzyme elevation has resolved.. 4. CHF , she continues to have lung congestion but her peripheral edema has decreased significantly , she is having fluid removed with dialysis and is overall better . 5. hypocalcemia/hypoalbuminemia , calcium is higher 6. anemia , She has no active GI bleeding now. 7. peripheral vascular disease . 8. respiratory failure , pulmonary function has improved . 9 dysphagia , she has a PEG . 10. discharge planning . She can be discharged to home or SNF , with outpatient dialysis . 11. DM , blood sugars are high again today , will increase Lantus to 28 units a day . 12. she has an elevated WBC , she is growing gram negative rods in the blood , probably from urine . Antibiotics have been started , Levaquin and Zosyn . . Problems: Consultation Date/Type/Reason Admit Date/Time Sep 20, 2016 at 19:21 Initial Consult Date 09/23/16 Type of Consultation: renal Referring Provider: ZANDRA ROBISON [facility], [facility] HR Interval Summary Free Text/Dictation She is lethargic . She does rouse some to verbal stimuli and is responsive . She is growing gram negative rods in her blood from yesterday . Constitutional: no complaints Exam/Review of Systems Vital Signs Vitals Vital Signs Date Time Temp Pulse Resp B/P Pulse Ox O2 Delivery O2 Flow Rate FiO2 12/03/16 07:23 98.3 82 18 108/56 96 12/02/16 19:38 21 Intake and Output 12/02/16 12/02/16 12/03/16 15:00 23:00 07:00 Intake Total 400 ml 120 ml Output Total 900 ml 0 ml Balance -500 ml 120 ml Exam Constitutional: frail, obese Respiratory: clear to auscultation, diminished breath sounds Cardiovascular: edema, regular rate and rhythm Gastrointestinal: soft Musculoskeletal: nl extremities to inspection Results Result Diagram: 12/03/16 0433 12/03/16 0433 Results 24 hrs Laboratory Tests Test 12/02/16 09:18 12/02/16 13:05 12/02/16 18:44 12/02/16 21:45 Bedside Glucose 288 H 292 H 288 H 313 H Test 12/03/16 01:39 12/03/16 04:33 12/03/16 05:30 Bedside Glucose 219 204 White Blood Count 47.4 H Red Blood Count 3.51 L Hemoglobin 10.1 L Hematocrit 33.3 L Mean Corpuscular Volume 94.9 Mean Corpuscular Hemoglobin 28.8 L Mean Corpuscular Hemoglobin Concent 30.3 L Red Cell Distribution Width 17.9 H Platelet Count 255 Mean Platelet Volume 10.6 H Neutrophils % Eosinophils % Neutrophils # Eosinophils # Sodium Level 138 Potassium Level 3.5 Chloride Level 100 Carbon Dioxide Level 28 Anion Gap 14 Blood Urea Nitrogen 57 H Creatinine 2.11 H Glucose Level 192 Calcium Level 9.2 Total Bilirubin 0.0 L Direct Bilirubin 0.00 Indirect Bilirubin 0.0 Aspartate Amino Transf (AST/SGOT) 33 Alanine Aminotransferase (ALT/SGPT) 31 Alkaline Phosphatase 234 H Total Protein 6.2 Albumin 2.5 L Globulin 3.70 H Albumin/Globulin Ratio 0.67 Medications Medications Current Medications Acetaminophen (Tylenol Liquid) 650 mg Q4H PRN NGT PAIN AND OR ELEVATED TEMP Last administered on 11/09/16 11:10; Admin Dose 650 MG; Start 09/21/16 at 02:00 Pantoprazole (Protonix Iv) 40 mg AM IV Last administered on 12/02/16 09:36; Admin Dose 40 MG; Start 09/26/16 at 09:00 Epoetin Raj (Epogen (Esrd)) 10,000 units TuThSa@17 SC Last administered on 17:38; Admin Dose 10,000 UNITS; Start 09/26/16 at 17:00 IV Flush (NS 10 ml) 10 ml PRN PRN IV IV PROTOCOL Last administered on 21:07; Admin Dose 10 ML; Start 09/26/16 at 17:30 Lactulose (Enulose) 20 gm BID PRN PO CONSTIPATION Last administered on 05:34; Admin Dose 20 GM; Start 10/23/16 at 10:30 Amylase/Lipase/ Protease (CREON (12k-38k-60k)) 3 cap Q6 NGT Last administered on 12/03/16 05:31; Admin Dose 3 CAP; Start 10/29/16 at 13:00 Latanoprost (Xalatan) 1 drop HS BOTH EYES Last administered on 12/02/16 22:29 ; Admin Dose 1 DROP; Start 10/31/16 at 21:00 Dorzolamide/ Timolol (Cosopt) 1 drop BID BOTH EYES Last administered on 21:59; Admin Dose 1 DROP; Start 10/31/16 at 21:00 Glucagon (Glucagen) 1 mg Q15M PRN IM DECREASED GLUCOSE; Start 11/03/16 at 18:00 Ondansetron HCl (Zofran Inj) 4 mg Q4H PRN IV NAUSEA AND/OR VOMITING Last administered on 12/01/16 15:04; Admin Dose 4 MG; Start 11/04/16 at 23:00 Eye Lubricant (Artificial Tears Oph) 2 drop QID BOTH EYES Last administered on 12/02/16 21:59; Admin Dose 2 DROP; Start 11/07/16 at 09:00 Calcium Carbonate (Tums Ex) 750 mg Q6H PRN PO dyspepsia Last administered on 09:22; Admin Dose 750 MG; Start 11/09/16 at 12:30 Morphine Sulfate (morphine) 1 mg Q3H PRN IV pain Last administered on 11:49; Admin Dose 1 MG; Start 11/10/16 at 08:00 Aspirin (Aspirin) 81 mg DAILY GTB Last administered on 12/02/16 08:59; Admin Dose 81 MG; Start 11/12/16 at 19:00 Miscellaneous Information 1 ea NOTE XX ; Start 11/14/16 at 10:00 Glucose (Glutose) 15 gm Q15M PRN PO DECREASED GLUCOSE; Start 11/14/16 at 10:00 Glucose (Glutose) 22.5 gm Q15M PRN PO DECREASED GLUCOSE; Start 11/14/16 at 10: 00 Dextrose (D50w Syringe) 25 ml Q15M PRN IV DECREASED GLUCOSE; Start 11/14/16 at 10:00 Dextrose (D50w Syringe) 50 ml Q15M PRN IV DECREASED GLUCOSE; Start 11/14/16 at 10:00 Glucose (Glutose) 15 gm Q15M PRN BUCCAL DECREASED GLUCOSE; Start 11/14/16 at 10 :00 Escitalopram Oxalate (Lexapro) 10 mg DAILY GTB Last administered on 12/02/16 08:59; Admin Dose 10 MG; Start 11/16/16 at 12:30 Clopidogrel Bisulfate (plaVIX) 75 mg DAILY GTB Last administered on 12/02/16 08:59; Admin Dose 75 MG; Start 11/18/16 at 13:00 Lactobacillus Acidophilus (Florajen3 Capsule) 1 each TID PEG Last administered on 12/02/16 22:01; Admin Dose 1 EACH; Start 11/23/16 at 21:00 Calcium Carbonate (Tums) 500 mg TID PEG Last administered on 12/02/16 22:01; Admin Dose 500 MG; Start 11/23/16 at 21:00 Metoprolol Tartrate (Lopressor) 25 mg BID GTB Last administered on 12/02/16 22 :01; Admin Dose 25 MG; Start 11/23/16 at 21:00 Insulin Glargine (Lantus) 26 unit DAILY@08 SC Last administered on 12/02/16 09 :26; Admin Dose 26 UNIT; Start 12/01/16 at 08:00 Insulin Aspart (Novolog Insulin Pen) (Adult SC Insulin - Mild Algorithm)... Q4 SC Last administered on 12/03/16 07:35; Admin Dose 2 UNIT; Start 12/02/16 at 01:00 Metoclopramide HCl 5 mg 5 mg Q6 PEG Last administered on 12/03/16 05:32; Admin Dose 5 MG; Start 12/03/16 at 01:00 Piperacillin Sod/ Tazobactam Sod 50 ml @ 100 mls/hr Q8 IVPB ; Start 12/03/16 at 09:00 Levofloxacin/ Dextrose 100 ml @ 100 mls/hr ONCE ONCE IVPB ; Start 12/03/16 at 07:30; Stop 12/03/16 at 08:29 Levofloxacin/ Dextrose (Levaquin 250 Mg/ D5W 50 ml (Pmx)) 50 ml @ 50 mls/hr Q24H IVPB ; Start 12/03/16 at 07:30 DAMIR MARTINEZ MD December 03, 2016 08:10
[2016-12-03 08:33] LABS: ADD UMIC YES; UR BILIRUBIN (Dip) 1+ (NEGATIVE); UR BLOOD (Dip) 3+ (NEGATIVE); UR CLARITY CLOUDY (CLEAR); UR COLOR DK. YELLOW (YELLOW); UR GLUCOSE (Dip) NEGATIVE (NEGATIVE); UR KETONES (Dip) NEGATIVE (NEGATIVE); UR LEUKOCYTE ESTERASE (Dip) 3+ (NEGATIVE); UR NITRITE (Dip) NEGATIVE (NEGATIVE); UR TOTAL PROTEIN (Dip) 2+ (NEGATIVE); UR UROBILINOGEN (Dip) 0.2 E.U./dL (0.1-1.0)
[2016-12-03 08:58] LABS: UR BACTERIA MODERATE
[2016-12-03 09:03] LABS: ICTOTEST NEGATIVE (NEGATIVE)
[2016-12-03] MEDS: METOPROLOL 25 MG TAB GTB SCH ×2 (09:05→21:00)
[2016-12-03] MEDS: CALCIUM CARBONATE 500 MG CHEW TAB PEG SCH ×3 (09:05→20:51)
[2016-12-03] MEDS: CLOPIDOGREL 75 MG TAB GTB SCH (09:05)
[2016-12-03] MEDS: ARTIFICIAL TEARS 15 ML OPH BOTH EYES SCH ×4 (09:06→20:49)
[2016-12-03] MEDS: ASPIRIN 81 MG TAB GTB SCH (09:06)
[2016-12-03] MEDS: ESCITALOPRAM 10 MG TAB GTB SCH (09:06)
[2016-12-03] MEDS: PANTOPRAZOLE 40 MG INJ IV SCH (09:06)
[2016-12-03] MEDS: DORZOLAMIDE/TIMOLOL 10 ML OPH BOTH EYES SCH ×2 (09:06→20:49)
[2016-12-03] MEDS: L ACIDOPHIL/B LACTIS/B LONGUM CAPSULE PEG SCH ×3 (09:14→20:51)
[2016-12-03] MEDS: INSULIN GLARGINE [LANtus] 3 ML PEN SC SCH (09:15)
[2016-12-03] MEDS: PIPER-TAZO 2.25 GM (PMX) 50 ML IVPB SCH ×3 (10:30→21:04)
[2016-12-03 10:54] LABS: LYMPHOCYTES # 4.7 10^3/ul (0.8-2.9); MONOCYTE # 2.8 10^3/ul (0.3-0.9); NEUTROPHIL # 38.4 10^3/ul (1.6-7.5)
--- NOTE | 2016-12-03 14:12 | PN ---
Date/Time of Note Date/Time of Note DATE: 11/29/16 TIME: 14:07 Assessment/Plan VTE Prophylaxis VTE Prophylaxis Intervention: other (asa, plavix) Lines/Catheters IV Catheter Type (from Nrsg): PICC Line Central line still needed: No Urinary Cath still in place: No Assessment/Plan Assessment/Plan 1. cad/ htn/ pad/ on anticoag+ 2. rld/ pulm effusion 3. arf/ edema/ anemia 4. obesity 5. dm 6. weak musc/ coughs 7. 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
--- NOTE | 2016-12-03 14:16 | PN ---
Date/Time of Note Date/Time of Note DATE: 11/30/16 TIME: 15:12 Assessment/Plan VTE Prophylaxis VTE Prophylaxis Intervention: other (asa, plavix) Lines/Catheters IV Catheter Type (from Nrsg): PICC Line Central line still needed: No Urinary Cath still in place: No Assessment/Plan Assessment/Plan 1.cad/ htn/ pad/ on anticoag 2. rld/ pulm effusion 3. arf/ edema/ anemia/ on dialysis 4. dm 5. obesity/ depression/ debility with musc weak ---cont all supportive cares ---per pulm ---per renal ---more aggressive ot/pt Subjective 24 Hr Interval Summary Free Text/Dictation pt's family visiting snfs "weak, no interests of living" SHAMA LOPEZ MD December 03, 2016 14:16
--- NOTE | 2016-12-03 14:19 | PN ---
Date/Time of Note Date/Time of Note DATE: 12/01/16 TIME: 20:16 Assessment/Plan VTE Prophylaxis VTE Prophylaxis Intervention: other (asa, plavix) Lines/Catheters IV Catheter Type (from Nrsg): PICC Line Central line still needed: No Urinary Cath still in place: No Assessment/Plan Assessment/Plan 1. cad/ htn/ pad/ on anticoag 2. rld/ pulm effusion 3. arf/ edema/ anemia/ on dialysis 4. dm 5. obesity/ depression/ debility with musc weak/ on peg feed ---cont all supportive cares ---replace supps ---per pulm ---per renal Subjective 24 Hr Interval Summary Free Text/Dictation quiet, does not feel like speaking, no pain complaints SHAMA LOPEZ MD December 03, 2016 14:19
--- NOTE | 2016-12-03 14:23 | PN ---
Date/Time of Note Date/Time of Note DATE: 12/02/16 TIME: 19:20 Assessment/Plan VTE Prophylaxis VTE Prophylaxis Intervention: other (asa/ plavix) Lines/Catheters IV Catheter Type (from Nrsg): PICC Line Central line still needed: No Urinary Cath still in place: No Assessment/Plan Assessment/Plan 1. cad/ htn/ pad/ on anticoag+ 2. rld/ pulm effusion 3. arf/ edema/ anemia 4. dm 5. obesity/ depression/ musc weak/ peg feed dep ---cont all supportive cares ---per pulm ---per renal ---must inc ot/pt Subjective 24 Hr Interval Summary Free Text/Dictation quiet, cods/ shakes/ soft husky voice SHAMA LOPEZ MD December 03, 2016 14:23
--- NOTE | 2016-12-03 14:33 | PN ---
Date/Time of Note Date/Time of Note DATE: 12/03/16 TIME: 14:28 Assessment/Plan VTE Prophylaxis VTE Prophylaxis Intervention: other (asa, plavix) Lines/Catheters IV Catheter Type (from Nrs): PICC Line Central line still needed: No Urinary Cath still in place: No Assessment/Plan Assessment/Plan 1. uti 2. cad/ htn/ pad/ on anticoag 3. pulm effusion/ rld 4. arf/ edema/ anemia 5. dm 6. obesity/ depression/ musc weak/ peg feed dep ---cont iv atbx ---per pulm ---per renal ---cont all supportive care & meds ---full more aggressive ot/ pt Subjective 24 Hr Interval Summary Free Text/Dictation tired Exam/Review of Systems Vital Signs Vitals Vital Signs Date Time Temp Pulse Resp B/P Pulse Ox O2 Delivery O2 Flow Rate FiO2 12/03/16 09:36 83 18 98 21 12/03/16 07:23 98.3 108/56 Intake and Output 12/02/16 12/02/16 12/03/16 15:00 23:00 07:00 Intake Total 400 ml 120 ml Output Total 900 ml 0 ml Balance -500 ml 120 ml Exam obese, in bed shallow breathing, dec bs bibasilar+ rr toes blue black+ very flat affect+ Results Result Diagram: 12/03/16 0433 12/03/16 0433 Results 24 hrs Laboratory Tests Test 12/02/16 18:30 12/02/16 18:44 12/02/16 21:45 12/03/16 01:39 Urine Color DK. YELLOW Urine Clarity CLOUDY Urine pH 8.0 Urine Specific [place] 1.020 Urine Ketones NEGATIVE Urine Nitrite NEGATIVE Urine Bilirubin 1+ H Urine Ictotest NEGATIVE Urine Urobilinogen 0.2 E.U./dL Urine Leukocyte Esterase 3+ H Urine Microscopic RBC 10-25 Urine Microscopic WBC >50 Urine Epithelial Cells FEW Urine Bacteria MODERATE Urine Hemoglobin 3+ H Urine Glucose NEGATIVE Urine Total Protein 2+ H Bedside Glucose 288 H 313 H 219 Test 12/03/16 04:33 12/03/16 05:30 12/03/16 09:13 12/03/16 12:01 White Blood Count 47.4 H Red Blood Count 3.51 L Hemoglobin 10.1 L Hematocrit 33.3 L Mean Corpuscular Volume 94.9 Mean Corpuscular Hemoglobin 28.8 L Mean Corpuscular Hemoglobin Concent 30.3 L Red Cell Distribution Width 17.9 H Platelet Count 255 Mean Platelet Volume 10.6 H Neutrophils % 81.0 H Band Neutrophils % 3.0 Lymphocytes % 10.0 L Monocytes % 6.0 Eosinophils % Neutrophils # 38.4 H Lymphocytes # 4.7 H Monocytes # 2.8 H Eosinophils # Sodium Level 138 Potassium Level 3.5 Chloride Level 100 Carbon Dioxide Level 28 Anion Gap 14 Blood Urea Nitrogen 57 H Creatinine 2.11 H Glucose Level 192 Calcium Level 9.2 Total Bilirubin 0.0 L Direct Bilirubin 0.00 Indirect Bilirubin 0.0 Aspartate Amino Transf (AST/SGOT) 33 Alanine Aminotransferase (ALT/SGPT) 31 Alkaline Phosphatase 234 H Total Protein 6.2 Albumin 2.5 L Globulin 3.70 H Albumin/Globulin Ratio 0.67 Bedside Glucose 204 270 H 313 H Medications Medications Current Medications Acetaminophen (Tylenol Liquid) 650 mg Q4H PRN NGT PAIN AND OR ELEVATED TEMP Last administered on 11/09/16 11:10; Admin Dose 650 MG; Start 09/21/16 at 02:00 Pantoprazole (Protonix Iv) 40 mg AM IV Last administered on 12/03/16 09:06; Admin Dose 40 MG; Start 09/26/16 at 09:00 Epoetin Raj (Epogen (Esrd)) 10,000 units TuThSa@17 SC Last administered on 17:38; Admin Dose 10,000 UNITS; Start 09/26/16 at 17:00 IV Flush (NS 10 ml) 10 ml PRN PRN IV IV PROTOCOL Last administered on 21:07; Admin Dose 10 ML; Start 09/26/16 at 17:30 Lactulose (Enulose) 20 gm BID PRN PO CONSTIPATION Last administered on 05:34; Admin Dose 20 GM; Start 10/23/16 at 10:30 Amylase/Lipase/ Protease (CREON (12k-38k-60k)) 3 cap Q6 NGT Last administered on 12/03/16 12:17; Admin Dose 3 CAP; Start 10/29/16 at 13:00 Latanoprost (Xalatan) 1 drop HS BOTH EYES Last administered on 12/02/16 22:29 ; Admin Dose 1 DROP; Start 10/31/16 at 21:00 Dorzolamide/ Timolol (Cosopt) 1 drop BID BOTH EYES Last administered on 09:06; Admin Dose 1 DROP; Start 10/31/16 at 21:00 Glucagon (Glucagen) 1 mg Q15M PRN IM DECREASED GLUCOSE; Start 11/03/16 at 18:00 Ondansetron HCl (Zofran Inj) 4 mg Q4H PRN IV NAUSEA AND/OR VOMITING Last administered on 12/01/16 15:04; Admin Dose 4 MG; Start 11/04/16 at 23:00 Eye Lubricant (Artificial Tears Oph) 2 drop QID BOTH EYES Last administered on 12/03/16 12:18; Admin Dose 2 DROP; Start 11/07/16 at 09:00 Calcium Carbonate (Tums Ex) 750 mg Q6H PRN PO dyspepsia Last administered on 09:22; Admin Dose 750 MG; Start 11/09/16 at 12:30 Morphine Sulfate (morphine) 1 mg Q3H PRN IV pain Last administered on 11:49; Admin Dose 1 MG; Start 11/10/16 at 08:00 Aspirin (Aspirin) 81 mg DAILY GTB Last administered on 12/03/16 09:06; Admin Dose 81 MG; Start 11/12/16 at 19:00 Miscellaneous Information 1 ea NOTE XX ; Start 11/14/16 at 10:00 Glucose (Glutose) 15 gm Q15M PRN PO DECREASED GLUCOSE; Start 11/14/16 at 10:00 Glucose (Glutose) 22.5 gm Q15M PRN PO DECREASED GLUCOSE; Start 11/14/16 at 10: 00 Dextrose (D50w Syringe) 25 ml Q15M PRN IV DECREASED GLUCOSE; Start 11/14/16 at 10:00 Dextrose (D50w Syringe) 50 ml Q15M PRN IV DECREASED GLUCOSE; Start 11/14/16 at 10:00 Glucose (Glutose) 15 gm Q15M PRN BUCCAL DECREASED GLUCOSE; Start 11/14/16 at 10 :00 Escitalopram Oxalate (Lexapro) 10 mg DAILY GTB Last administered on 12/03/16 09:06; Admin Dose 10 MG; Start 11/16/16 at 12:30 Clopidogrel Bisulfate (plaVIX) 75 mg DAILY GTB Last administered on 12/03/16 09:05; Admin Dose 75 MG; Start 11/18/16 at 13:00 Lactobacillus Acidophilus (Florajen3 Capsule) 1 each TID PEG Last administered on 12/03/16 09:14; Admin Dose 1 EACH; Start 11/23/16 at 21:00 Calcium Carbonate (Tums) 500 mg TID PEG Last administered on 12/03/16 12:22; Admin Dose 500 MG; Start 11/23/16 at 21:00 Metoprolol Tartrate (Lopressor) 25 mg BID GTB Last administered on 12/03/16 09 :05; Admin Dose 25 MG; Start 11/23/16 at 21:00 Insulin Glargine (Lantus) 26 unit DAILY@08 SC Last administered on 12/03/16 09 :15; Admin Dose 26 UNIT; Start 12/01/16 at 08:00 Insulin Aspart (Novolog Insulin Pen) (Adult SC Insulin - Mild Algorithm)... Q4 SC Last administered on 12/03/16 12:19; Admin Dose 5 UNIT; Start 12/02/16 at 01:00 Metoclopramide HCl 5 mg 5 mg Q6 PEG Last administered on 12/03/16 12:17; Admin Dose 5 MG; Start 12/03/16 at 01:00 Piperacillin Sod/ Tazobactam Sod 50 ml @ 100 mls/hr Q8 IVPB Last administered on 12/03/16 13:31; Admin Dose 100 MLS/HR; Start 12/03/16 at 09:00 Levofloxacin/ Dextrose (Levaquin 250 Mg/ D5W 50 ml (Pmx)) 50 ml @ 50 mls/hr Q24H IVPB ; Start 12/03/16 at 07:30 SHAMA LOPEZ MD December 03, 2016 14:33
[2016-12-03] MEDS: EPOETIN 10000 UNITS/1 ML INJ (ESRD) SC SCH (18:12)
[2016-12-03] MEDS: LATANOPROST 0.005% 2.5 ML OPH BOTH EYES SCH (20:49)
[2016-12-04] MEDS: METOCLOPRAMIDE 10 MG TAB PEG SCH ×4 (00:21→18:03)
[2016-12-04] MEDS: CREON (12k-38k-60k) 1 CAP NGT SCH ×4 (00:22→18:03)
[2016-12-04] MEDS: INSULIN ASPART [NOVOLOG] 3 ML PEN SC SCH ×6 (00:36→22:06)
[2016-12-04] MEDS: IPRATROPIUM (NEB) 0.5 MG/2.5 ML AMP HHN SCH ×4 (01:54→21:35)
[2016-12-04] MEDS: LEVALBUTEROL (NEB) 1.25 MG/0.5 ML AMP HHN SCH ×4 (01:54→21:35)
[2016-12-04] MEDS: PIPER-TAZO 2.25 GM (PMX) 50 ML IVPB SCH ×3 (05:27→21:06)
[2016-12-04 05:36] LABS: ADD SCAN DIFF NO
[2016-12-04 05:48] LABS: ABNORMAL IP MESSAGE 1; BASOPHIL # 0.1 10^3/ul (0.0-0.1); BASOPHILS % 0.2 % (0.0-2.0); HEMATOCRIT 31.1 % (37.0-47.0); HEMOGLOBIN 9.2 g/dl (12.0-16.0); LYMPHOCYTES # 2.2 10^3/ul (0.8-2.9); MEAN CORPUSCULAR HEMOGLOBIN 27.8 pg (29.0-33.0); MEAN CORPUSCULAR HGB CONC 29.6 g/dl (32.0-37.0); MEAN PLATELET VOLUME 10.8 fl (7.4-10.4); MONOCYTE # 3.2 10^3/ul (0.3-0.9); MONOCYTES % 8.9 % (0.0-11.0); NEUTROPHILS % 82.9 % (39.0-77.0); NUCLEATED RED BLOOD CELLS # 0.1 10^3/ul (0.0-0.0); NUCLEATED RED BLOOD CELLS% 0.2 /100WBC (0.0-0.0); PLATELET COUNT 262 10^3/UL (140-415); RED BLOOD COUNT 3.31 10^6/ul (4.20-5.40); RED CELL DISTRIBUTION WIDTH 18.2 % (11.5-14.5)
[2016-12-04 06:05] LABS: POTASSIUM 4.2 mmol/L (3.5-5.1)
[2016-12-04 06:07] LABS: CREATININE 1.64 mg/dl (0.44-1.00)
[2016-12-04 06:08] LABS: CALCIUM 9.3 mg/dl (8.4-10.2); MAGNESIUM 2.8 mg/dl (1.7-2.5)
[2016-12-04 06:21] LABS: WHITE BLOOD COUNT 36.1 10^3/ul (4.8-10.8)
[2016-12-04] MEDS: LEVOFLOXACIN 250MG/D5W (PMX) 50 ML IVPB SCH (06:32)
[2016-12-04] MEDS ORDERED: LEVOFLOXACIN 250MG/D5W (PMX) 50 ML IVPB SCH (07:00)
[2016-12-04 07:24] VITALS: BP 108/56; RESP 20
[2016-12-04 07:40] LABS: WHITE BLOOD COUNT 41.8 10^3/ul (4.8-10.8)
[2016-12-04] MEDS ORDERED: INSULIN GLARGINE [LANtus] 3 ML PEN SC SCH (08:00)
--- NOTE | 2016-12-04 08:20 | CONS ---
Date/Time of Note Date/Time of Note DATE: 12/04/16 TIME: 08:08 Assessment/Plan Assessment/Plan Chief Complaint/Hosp Course 1. Acute Renal Failure due to ATN . She is now on maintenance hemodialysis . She has less evidence of volume overload .She has hemodialysis ordered for tomorrow . 2. ALOC , she continues to be very weak and lethargic . But overall better . She is making progress with PT . 3. liver enzyme elevation has resolved.. 4. CHF , she continues to have lung congestion but her peripheral edema has decreased significantly , she is having fluid removed with dialysis and is overall better from fluid balance standpoint . 5. hypocalcemia/hypoalbuminemia , calcium is higher 6. anemia , She has no active GI bleeding now. 7. peripheral vascular disease . 8. respiratory failure , pulmonary function has improved . 9 dysphagia , she has a PEG . 10. discharge planning . She can be discharged to home or SNF , with outpatient dialysis . 11. DM , blood sugars are high again today , will increase Lantus to 30 units a day . 12. she has an elevated WBC , she is growing e coli in the blood , probably from urine . Antibiotics have been started , Levaquin and Zosyn .recommend ID consult . Dr Franco has seen patient previously . . Problems: Consultation Date/Type/Reason Admit Date/Time Sep 20, 2016 at 19:21 Initial Consult Date 09/23/16 Type of Consultation: renal Referring Provider: ZANDRA ROBISON MD, [facility] 24 HR Interval Summary Free Text/Dictation She is awake and responsive . No complaints . Constitutional: no complaints Exam/Review of Systems Vital Signs Vitals Vital Signs Date Time Temp Pulse Resp B/P Pulse Ox O2 Delivery O2 Flow Rate FiO2 12/04/16 07:24 97.6 99 20 108/56 96 12/04/16 01:54 21 Intake and Output 12/03/16 12/03/16 12/04/16 15:00 23:00 07:00 Intake Total 700 ml 240 ml Output Total 3500 ml Balance -2800 ml 240 ml Exam several toes are gangrenous Constitutional: alert, frail, obese, oriented Respiratory: clear to auscultation, diminished breath sounds Cardiovascular: edema, regular rate and rhythm Gastrointestinal: non-tender, soft Musculoskeletal: nl extremities to inspection Results Result Diagram: 12/04/16 0440 12/04/16 0440 Results 24 hrs Laboratory Tests Test 12/03/16 09:13 12/03/16 12:01 12/03/16 18:16 12/03/16 20:54 Bedside Glucose 270 H 313 H 265 H 263 H Test 12/04/16 00:24 12/04/16 04:40 12/04/16 05:32 Bedside Glucose 270 H 275 H White Blood Count 36.1 #H Red Blood Count 3.31 L Hemoglobin 9.2 L Hematocrit 31.1 L Mean Corpuscular Volume 94.0 Mean Corpuscular Hemoglobin 27.8 L Mean Corpuscular Hemoglobin Concent 29.6 L Red Cell Distribution Width 18.2 H Platelet Count 262 Mean Platelet Volume 10.8 H Neutrophils % 82.9 H Lymphocytes % 6.0 L Monocytes % 8.9 Eosinophils % 0.0 Basophils % 0.2 Nucleated Red Blood Cells % 0.2 H Neutrophils # 30.0 H Lymphocytes # 2.2 Monocytes # 3.2 H Eosinophils # 0.0 Basophils # 0.1 Nucleated Red Blood Cells # 0.1 H Sodium Level 146 H Potassium Level 4.2 Chloride Level 110 # Carbon Dioxide Level 31 Anion Gap 9 # Blood Urea Nitrogen 46 #H Creatinine 1.64 H Glucose Level 253 H Calcium Level 9.3 Magnesium Level 2.8 H Medications Medications Current Medications Acetaminophen (Tylenol Liquid) 650 mg Q4H PRN NGT PAIN AND OR ELEVATED TEMP Last administered on 11/09/16 11:10; Admin Dose 650 MG; Start 09/21/16 at 02:00 Pantoprazole (Protonix Iv) 40 mg AM IV Last administered on 12/03/16 09:06; Admin Dose 40 MG; Start 09/26/16 at 09:00 Epoetin Raj (Epogen (Esrd)) 10,000 units TuThSa@17 SC Last administered on 18:12; Admin Dose 10,000 UNITS; Start 09/26/16 at 17:00 IV Flush (NS 10 ml) 10 ml PRN PRN IV IV PROTOCOL Last administered on 21:07; Admin Dose 10 ML; Start 09/26/16 at 17:30 Lactulose (Enulose) 20 gm BID PRN PO CONSTIPATION Last administered on 05:34; Admin Dose 20 GM; Start 10/23/16 at 10:30 Amylase/Lipase/ Protease (CREON (12k-38k-60k)) 3 cap Q6 NGT Last administered on 12/04/16 05:27; Admin Dose 3 CAP; Start 10/29/16 at 13:00 Latanoprost (Xalatan) 1 drop HS BOTH EYES Last administered on 12/03/16 20:49 ; Admin Dose 1 DROP; Start 10/31/16 at 21:00 Dorzolamide/ Timolol (Cosopt) 1 drop BID BOTH EYES Last administered on 20:49; Admin Dose 1 DROP; Start 10/31/16 at 21:00 Glucagon (Glucagen) 1 mg Q15M PRN IM DECREASED GLUCOSE; Start 11/03/16 at 18:00 Ondansetron HCl (Zofran Inj) 4 mg Q4H PRN IV NAUSEA AND/OR VOMITING Last administered on 12/01/16 15:04; Admin Dose 4 MG; Start 11/04/16 at 23:00 Eye Lubricant (Artificial Tears Oph) 2 drop QID BOTH EYES Last administered on 12/03/16 20:49; Admin Dose 2 DROP; Start 11/07/16 at 09:00 Calcium Carbonate (Tums Ex) 750 mg Q6H PRN PO dyspepsia Last administered on 09:22; Admin Dose 750 MG; Start 11/09/16 at 12:30 Morphine Sulfate (morphine) 1 mg Q3H PRN IV pain Last administered on 11:49; Admin Dose 1 MG; Start 11/10/16 at 08:00 Aspirin (Aspirin) 81 mg DAILY GTB Last administered on 12/03/16 09:06; Admin Dose 81 MG; Start 11/12/16 at 19:00 Miscellaneous Information 1 ea NOTE XX ; Start 11/14/16 at 10:00 Glucose (Glutose) 15 gm Q15M PRN PO DECREASED GLUCOSE; Start 11/14/16 at 10:00 Glucose (Glutose) 22.5 gm Q15M PRN PO DECREASED GLUCOSE; Start 11/14/16 at 10: 00 Dextrose (D50w Syringe) 25 ml Q15M PRN IV DECREASED GLUCOSE; Start 11/14/16 at 10:00 Dextrose (D50w Syringe) 50 ml Q15M PRN IV DECREASED GLUCOSE; Start 11/14/16 at 10:00 Glucose (Glutose) 15 gm Q15M PRN BUCCAL DECREASED GLUCOSE; Start 11/14/16 at 10 :00 Escitalopram Oxalate (Lexapro) 10 mg DAILY GTB Last administered on 12/03/16 09:06; Admin Dose 10 MG; Start 11/16/16 at 12:30 Clopidogrel Bisulfate (plaVIX) 75 mg DAILY GTB Last administered on 12/03/16 09:05; Admin Dose 75 MG; Start 11/18/16 at 13:00 Lactobacillus Acidophilus (Florajen3 Capsule) 1 each TID PEG Last administered on 12/03/16 20:51; Admin Dose 1 EACH; Start 11/23/16 at 21:00 Calcium Carbonate (Tums) 500 mg TID PEG Last administered on 12/03/16 20:51; Admin Dose 500 MG; Start 11/23/16 at 21:00 Metoprolol Tartrate (Lopressor) 25 mg BID GTB Last administered on 12/03/16 09 :05; Admin Dose 25 MG; Start 11/23/16 at 21:00 Insulin Aspart (Novolog Insulin Pen) (Adult SC Insulin - Mild Algorithm)... Q4 SC Last administered on 12/04/16 05:46; Admin Dose 4 UNIT; Start 12/02/16 at 01:00 Metoclopramide HCl 5 mg 5 mg Q6 PEG Last administered on 12/04/16 05:29; Admin Dose 5 MG; Start 12/03/16 at 01:00 Piperacillin Sod/ Tazobactam Sod 50 ml @ 100 mls/hr Q8 IVPB Last administered on 12/04/16 05:27; Admin Dose 100 MLS/HR; Start 12/03/16 at 09:00 Levofloxacin/ Dextrose (Levaquin 250 Mg/ D5W 50 ml (Pmx)) 50 ml @ 50 mls/hr Q24H IVPB Last administered on 12/04/16 06:32; Admin Dose 50 MLS/HR; Start at 07:30 Insulin Glargine (Lantus) 32 unit DAILY@08 SC ; Start 12/04/16 at 08:00 DAMIR MARTINEZ MD December 04, 2016 08:19
[2016-12-04] MEDS: PANTOPRAZOLE 40 MG INJ IV SCH (08:50)
[2016-12-04] MEDS: ARTIFICIAL TEARS 15 ML OPH BOTH EYES SCH ×4 (08:51→21:30)
[2016-12-04] MEDS: DORZOLAMIDE/TIMOLOL 10 ML OPH BOTH EYES SCH ×2 (08:51→21:30)
[2016-12-04] MEDS: ESCITALOPRAM 10 MG TAB GTB SCH (08:51)
[2016-12-04] MEDS: L ACIDOPHIL/B LACTIS/B LONGUM CAPSULE PEG SCH ×3 (08:51→21:06)
[2016-12-04] MEDS: ASPIRIN 81 MG TAB GTB SCH (08:51)
[2016-12-04] MEDS: CLOPIDOGREL 75 MG TAB GTB SCH (08:51)
[2016-12-04] MEDS: CALCIUM CARBONATE 500 MG CHEW TAB PEG SCH ×3 (08:51→21:06)
[2016-12-04] MEDS: METOPROLOL 25 MG TAB GTB SCH ×2 (08:52→21:06)
[2016-12-04 14:06] VITALS: BP 117/56; PULSE 95; RESP 16
--- NOTE | 2016-12-04 14:31 | PN ---
Date/Time of Note Date/Time of Note DATE: 12/04/16 TIME: 14:22 Assessment/Plan VTE Prophylaxis VTE Prophylaxis Intervention: other (ASA, PLAVIX) Lines/Catheters IV Catheter Type (from Nrsg): PICC Line Central line still needed: No Urinary Cath still in place: No Assessment/Plan Assessment/Plan 1. UTI/ HIGH WBC--BETTER/ ON ATBX 2. ARF/ EDEMA/ ANEMIA 3. 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 DEPRESSION/ OBESITY 5. RLD/ PULM EFFUSION 6. CAD/ HTN/ PAD/ ON ANTICOAG ---CONT PEG & IV ATBXS ---PER ID ---PER RENAL ---VERY SLOW IMPROVEMENT ON OT/PT EXERCISES DUE TO PT'S INABILITY TO COOPERATE ---PER PULM Subjective 24 Hr Interval Summary Free Text/Dictation VOMITTED WHEN PT TRIED TO SET PT UP AT THE EDGE OF THE BED+ Exam/Review of Systems Vital Signs Vitals Vital Signs Date Time Temp Pulse Resp B/P Pulse Ox O2 Delivery O2 Flow Rate FiO2 12/04/16 14:06 97.9 95 16 117/56 96 Room Air 12/04/16 08:28 21 Intake and Output 12/03/16 12/03/16 12/04/16 15:00 23:00 07:00 Intake Total 700 ml 240 ml Output Total 3500 ml Balance -2800 ml 240 ml Exam OBESE+, IN BED, FLACCID MUSC + DEC BS BIBASILAR RR FEW TOES BLUE BLACK LESS EDEMA Results Result Diagram: 12/04/16 0440 12/04/16 0440 Results 24 hrs Laboratory Tests Test 12/03/16 18:16 12/03/16 20:54 12/04/16 00:24 12/04/16 04:40 Bedside Glucose 265 H 263 H 270 H White Blood Count 36.1 #H Red Blood Count 3.31 L Hemoglobin 9.2 L Hematocrit 31.1 L Mean Corpuscular Volume 94.0 Mean Corpuscular Hemoglobin 27.8 L Mean Corpuscular Hemoglobin Concent 29.6 L Red Cell Distribution Width 18.2 H Platelet Count 262 Mean Platelet Volume 10.8 H Neutrophils % 82.9 H Lymphocytes % 6.0 L Monocytes % 8.9 Eosinophils % 0.0 Basophils % 0.2 Nucleated Red Blood Cells % 0.2 H Neutrophils # 30.0 H Lymphocytes # 2.2 Monocytes # 3.2 H Eosinophils # 0.0 Basophils # 0.1 Nucleated Red Blood Cells # 0.1 H Sodium Level 146 H Potassium Level 4.2 Chloride Level 110 # Carbon Dioxide Level 31 Anion Gap 9 # Blood Urea Nitrogen 46 #H Creatinine 1.64 H Glucose Level 253 H Calcium Level 9.3 Magnesium Level 2.8 H Test 12/04/16 05:32 12/04/16 08:21 12/04/16 13:07 Bedside Glucose 275 H 252 H 268 H Medications Medications Current Medications Acetaminophen (Tylenol Liquid) 650 mg Q4H PRN NGT PAIN AND OR ELEVATED TEMP Last administered on 11/09/16 11:10; Admin Dose 650 MG; Start 09/21/16 at 02:00 Pantoprazole (Protonix Iv) 40 mg AM IV Last administered on 12/04/16 08:50; Admin Dose 40 MG; Start 09/26/16 at 09:00 Epoetin Raj (Epogen (Esrd)) 10,000 units TuThSa@17 SC Last administered on 18:12; Admin Dose 10,000 UNITS; Start 09/26/16 at 17:00 IV Flush (NS 10 ml) 10 ml PRN PRN IV IV PROTOCOL Last administered on 21:07; Admin Dose 10 ML; Start 09/26/16 at 17:30 Lactulose (Enulose) 20 gm BID PRN PO CONSTIPATION Last administered on 05:34; Admin Dose 20 GM; Start 10/23/16 at 10:30 Amylase/Lipase/ Protease (CREON ([id number])) 3 cap Q6 NGT Last administered on 12/04/16 12:54; Admin Dose 3 CAP; Start 10/29/16 at 13:00 Latanoprost (Xalatan) 1 drop HS BOTH EYES Last administered on 12/03/16 20:49 ; Admin Dose 1 DROP; Start 10/31/16 at 21:00 Dorzolamide/ Timolol (Cosopt) 1 drop BID BOTH EYES Last administered on 08:51; Admin Dose 1 DROP; Start 10/31/16 at 21:00 Glucagon (Glucagen) 1 mg Q15M PRN IM DECREASED GLUCOSE; Start 11/03/16 at 18:00 Ondansetron HCl (Zofran Inj) 4 mg Q4H PRN IV NAUSEA AND/OR VOMITING Last administered on 12/01/16 15:04; Admin Dose 4 MG; Start 11/04/16 at 23:00 Eye Lubricant (Artificial Tears Oph) 2 drop QID BOTH EYES Last administered on 12/04/16 12:54; Admin Dose 2 DROP; Start 11/07/16 at 09:00 Calcium Carbonate (Tums Ex) 750 mg Q6H PRN PO dyspepsia Last administered on 09:22; Admin Dose 750 MG; Start 11/09/16 at 12:30 Morphine Sulfate (morphine) 1 mg Q3H PRN IV pain Last administered on 11:49; Admin Dose 1 MG; Start 11/10/16 at 08:00 Aspirin (Aspirin) 81 mg DAILY GTB Last administered on 12/04/16 08:51; Admin Dose 81 MG; Start 11/12/16 at 19:00 Miscellaneous Information 1 ea NOTE XX ; Start 11/14/16 at 10:00 Glucose (Glutose) 15 gm Q15M PRN PO DECREASED GLUCOSE; Start 11/14/16 at 10:00 Glucose (Glutose) 22.5 gm Q15M PRN PO DECREASED GLUCOSE; Start 11/14/16 at 10: 00 Dextrose (D50w Syringe) 25 ml Q15M PRN IV DECREASED GLUCOSE; Start 11/14/16 at 10:00 Dextrose (D50w Syringe) 50 ml Q15M PRN IV DECREASED GLUCOSE; Start 11/14/16 at 10:00 Glucose (Glutose) 15 gm Q15M PRN BUCCAL DECREASED GLUCOSE; Start 11/14/16 at 10 :00 Escitalopram Oxalate (Lexapro) 10 mg DAILY GTB Last administered on 12/04/16 08:51; Admin Dose 10 MG; Start 11/16/16 at 12:30 Clopidogrel Bisulfate (plaVIX) 75 mg DAILY GTB Last administered on 12/04/16 08:51; Admin Dose 75 MG; Start 11/18/16 at 13:00 Lactobacillus Acidophilus (Florajen3 Capsule) 1 each TID PEG Last administered on 12/04/16 12:54; Admin Dose 1 EACH; Start 11/23/16 at 21:00 Calcium Carbonate (Tums) 500 mg TID PEG Last administered on 12/04/16 12:54; Admin Dose 500 MG; Start 11/23/16 at 21:00 Metoprolol Tartrate (Lopressor) 25 mg BID GTB Last administered on 12/04/16 08 :52; Admin Dose 25 MG; Start 11/23/16 at 21:00 Insulin Aspart (Novolog Insulin Pen) (Adult SC Insulin - Mild Algorithm)... Q4 SC Last administered on 12/04/16 13:12; Admin Dose 4 UNIT; Start 12/02/16 at 01:00 Metoclopramide HCl 5 mg 5 mg Q6 PEG Last administered on 12/04/16 12:54; Admin Dose 5 MG; Start 12/03/16 at 01:00 Piperacillin Sod/ Tazobactam Sod (Zosyn 2.25gm/ 50ml (Pmx)) 50 ml @ 100 mls/hr Q8 IVPB Last administered on 12/04/16 14:01; Admin Dose 100 MLS/HR; Start at 09:00 Insulin Glargine 32 unit 32 unit DAILY@08 SC Last administered on 12/04/16 08: 56; Admin Dose 32 UNIT; Start 12/04/16 at 08:00 Levofloxacin/ Dextrose (Levaquin 250 Mg/ D5W 50 ml (Pmx)) 50 ml @ 50 mls/hr Q48H IVPB ; Start 12/06/16 at 09:00 SHAMA LOPEZ MD December 04, 2016 14:31
--- NOTE | 2016-12-04 16:51 | CONS ---
DATE OF ADMISSION: 09/20/2016 DATE OF CONSULTATION: FOLLOWUP CONSULTATION HISTORY OF PRESENT ILLNESS: As an update, the patient was seen by Dr. Bermudez in nephrology to y. The patient has acute renal failure due to acute tubular necrosis, now on maintenance hemodialys is. She has less evidence of volume overload. She has hemodialysis ordered. She has acute loss of consciousness. She is very weak and lethargic, though she is better than she had been. She has co ngestive heart failure, hypocalcemia, hypoalbuminemia, peripheral vascular disease, dysphagia, diabe thierno mellitus. She now has an elevated white count and is growing E. coli in the blood. Antibiotics have been started with Levaquin and Zosyn. ID recommended since Dr. Whitten has seen the patient pr eviously. The patient has had a long, stormy hospital course. She has been seen by numerous physicians in [facility]. She is status post negative EGD and colonoscopy. She had a recent admission to [facility] with severe bilateral pneumonia, prolonged mechanical ventilation. She has done extreme ly well since then. PAST MEDICAL HISTORY: As outlined. PAST SURGICAL HISTORY: As outlined. FAMILY HISTORY: Noncontributory. SOCIAL HISTORY: She does not smoke, drink, or abuse drugs. ALLERGIES: NONE TO PENICILLIN, SULFA, OR FOODS. MEDICATIONS: Per chart. REVIEW OF SYSTEMS: As per HPI. PHYSICAL EXAMINATION: GENERAL: The patient is an elderly appearing female who is frail, in no acute distress. VITAL SIGNS: Stable. She is afebrile. SKIN: Without generalized rash. HEENT: Within normal limits. NECK: Supple. LYMPH NODES: None palpable. CHEST: Decreased breath sounds at the bases. HEART: Without murmur or gallop. ABDOMEN: Soft, nontender. G-tube in place. No organosplenomegaly or masses. EXTREMITIES: Without cyanosis, clubbing, or edema. RECTAL AND GENITAL: Deferred. NEUROLOGIC: No focal neurological abnormalities. The patient has a PICC line in place. She has no urinary catheter. IMPRESSION: Hemalatha Danielle has had a long, stormy hospital course. She now has a significant l eukocytosis and has positive blood cultures. Her white count is 36.1. A recent chest x-ray from shows persistent patchy infiltrate in the left lower lobe obscuring the left heart border. S he has a left-sided PICC line and a right-sided PermCath, persistent fullness in the superior medias tinum that is likely exaggerated by the portable AP nature of the film. Heart is in the upper limit s of normal. She has persistent patchy infiltrates in left lower lobe obscuring the left heart bord er. There are small bilateral pleural effusions also improved. Her urine is growing gram-negative rods and Enterococcus species. Her blood culture is growing Escherichia coli. The E. coli is not y et identified; it is in 1 out of the 2 bottles and is sensitive to cefotaxime. The urine culture al so is positive for enterococcus and E. coli. E. coli is sensitive to all, and Enterococcus is sensi tive to the ampicillin. She had Erica albicans in her urine as well from 10/02/2016, so that no l onger is a factor. We will continue her on Zosyn and Levaquin. I will dictate my findings to Dr. Rell Castillo and the numerous consultants. Dictated By: NOEMI WHITTEN MD, JD/JERROD Conf#: [id number] DID#: [id number]
[2016-12-04 19:48] VITALS: BP 113/53; RESP 18
[2016-12-04] MEDS: LATANOPROST 0.005% 2.5 ML OPH BOTH EYES SCH (21:30)
[2016-12-05] VITALS (11 sets, daily range): BP systolic 84–105; BP diastolic 43–59; PULSE 82–93; RESP 16–20
[2016-12-05] MEDS: CREON (12k-38k-60k) 1 CAP NGT SCH ×5 (00:40→23:52)
[2016-12-05] MEDS: METOCLOPRAMIDE 10 MG TAB PEG SCH ×4 (00:40→18:06)
[2016-12-05] MEDS: INSULIN ASPART [NOVOLOG] 3 ML PEN SC SCH ×6 (00:48→21:39)
[2016-12-05] MEDS: IPRATROPIUM (NEB) 0.5 MG/2.5 ML AMP HHN SCH ×4 (02:43→19:59)
[2016-12-05] MEDS: LEVALBUTEROL (NEB) 1.25 MG/0.5 ML AMP HHN SCH ×4 (02:43→19:59)
[2016-12-05] MEDS: PIPER-TAZO 2.25 GM (PMX) 50 ML IVPB SCH ×2 (05:11→13:03)
[2016-12-05 05:39] LABS: ADD SCAN DIFF NO
[2016-12-05 05:47] LABS: ABNORMAL IP MESSAGE 1; HEMATOCRIT 29.1 % (37.0-47.0); HEMOGLOBIN 8.7 g/dl (12.0-16.0); MEAN CORPUSCULAR HEMOGLOBIN 28.1 pg (29.0-33.0); MEAN CORPUSCULAR HGB CONC 29.9 g/dl (32.0-37.0); MEAN CORPUSCULAR VOLUME 93.9 fl (82.0-101.0); MEAN PLATELET VOLUME 10.7 fl (7.4-10.4); PLATELET COUNT 243 10^3/UL (140-415); RED CELL DISTRIBUTION WIDTH 18.5 % (11.5-14.5)
[2016-12-05 05:57] LABS: INR 1.12; PROTIME 14.4 Sec (12.2-14.2); PT RATIO 1.1
[2016-12-05 06:12] LABS: CALCIUM 9.2 mg/dl (8.4-10.2); CREATININE 2.12 mg/dl (0.44-1.00); POTASSIUM 4.6 mmol/L (3.5-5.1)
[2016-12-05 06:16] LABS: WHITE BLOOD COUNT 28.8 10^3/ul (4.8-10.8)
[2016-12-05] MEDS ORDERED: INSULIN GLARGINE [LANtus] 3 ML PEN SC SCH (08:00)
[2016-12-05] MEDS: DORZOLAMIDE/TIMOLOL 10 ML OPH BOTH EYES SCH ×2 (08:53→21:34)
[2016-12-05] MEDS: ARTIFICIAL TEARS 15 ML OPH BOTH EYES SCH ×4 (08:53→21:34)
[2016-12-05] MEDS: METOPROLOL 25 MG TAB GTB SCH ×2 (09:00→21:00)
[2016-12-05] MEDS: CALCIUM CARBONATE 500 MG CHEW TAB PEG SCH ×3 (09:00→21:30)
[2016-12-05] MEDS: L ACIDOPHIL/B LACTIS/B LONGUM CAPSULE PEG SCH ×3 (09:00→21:30)
[2016-12-05 09:35] LABS: LYMPHOCYTES # 5.8 10^3/ul (0.8-2.9); MONOCYTE # 0.6 10^3/ul (0.3-0.9); NEUTROPHIL # 21.9 10^3/ul (1.6-7.5)
[2016-12-05] MEDS: ALBUMIN HUMAN 25% 100 ML IV SCH ×2 (10:58→11:04)
[2016-12-05] MEDS: PANTOPRAZOLE 40 MG INJ IV SCH (12:45)
[2016-12-05] MEDS: ASPIRIN 81 MG TAB GTB SCH (12:46)
[2016-12-05] MEDS: CLOPIDOGREL 75 MG TAB GTB SCH (12:46)
[2016-12-05] MEDS: ESCITALOPRAM 10 MG TAB GTB SCH (12:46)
--- NOTE | 2016-12-05 13:29 | PN ---
DATE: 12/05/2016 SUBJECTIVE: No acute changes. The patient just finished hemodialysis. She is minimally responsive , lying comfortably in bed, afebrile. VITAL SIGNS: Temperature 97.9, pulse 92, respirations 20, blood pressure 94/59, saturation 98 on ro om air. WBC 28.8, H and H 8.7 and 29.1, platelets 243, neutrophils 76. INDWELLINGS: Right chest Perm-A-Cath, left upper extremity PICC line. MICROBIOLOGY: Blood culture growing E. coli resistant to Ancef, susceptible to all other antibiotic s. Urine culture growing E. coli, enterococcus species. ANTIMICROBIALS: The patient is on: 1. Zosyn 2. Levaquin. PHYSICAL EXAMINATION: GENERAL: This is a well-developed, chronically ill-appearing, elderly woman who is in no distress. HEENT: Head atraumatic, normocephalic. Sclerae anicteric. Buccal mucosa dry. NECK: Supple, trachea midline. CHEST: Rise symmetrical. Breath sounds diminished to bases. HEART: S1, S2. ABDOMEN: Soft, bowel tones present. EXTREMITIES: Bilateral toes gangrenous changes. ASSESSMENT: 1. Sepsis with persistent leukocytosis. 2. Bacteremia, likely secondary to urinary tract infection, rule out line sepsis. 3. Escherichia coli and Enterococcus species urinary tract infection. 4. Status post pneumonia. 5. End-stage renal disease, hemodialysis dependent. 6. 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 7. Dysphagia. 8. History of cardiopulmonary arrest with encephalopathy. PLAN: The patient is clinically stable. Blood culture repeated today from hemodialysis. We are go ing to change antibiotics to gentamicin and vancomycin that will cover E. coli and Enterococcus. Aw ait for repeat blood cultures. We will also send cultures, 2 sets from her PICC line if it has not been done yet. Dictated By: ROSALINA SIMS FILLING MIXER for NOEMI LARA/JERROD Conf#: [id number] DID#: [id number]
[2016-12-05] MEDS ORDERED: VANCOMYCIN IV PER PHARMACY XX SCH (13:30)
[2016-12-05] MEDS ORDERED: GENTAMICIN IV PER PHARMACY XX SCH (13:30)
--- NOTE | 2016-12-05 14:02 | PN ---
Date/Time of Note Date/Time of Note DATE: 12/05/16 TIME: 13:57 Assessment/Plan VTE Prophylaxis VTE Prophylaxis Intervention: other (asa, plavix) Lines/Catheters IV Catheter Type (from Nrsg): PICC Line Central line still needed: No Urinary Cath still in place: No Assessment/Plan Assessment/Plan 1. bacterimia/ uti/ leukocytosis--better 2. rld/ pulm effusion 3. arf/ edema/ anemia 4. dm--fluctuant gluc 5. weak musc/ peg feed dep 6. depression ---per ID, iv atbx changed ---per pulm ---per renal ---inc lantus ins to 44u qd ---cont all supportive cares ---very jono px Subjective 24 Hr Interval Summary Free Text/Dictation unmotivated, no complaints Exam/Review of Systems Vital Signs Vitals Vital Signs Date Time Temp Pulse Resp B/P Pulse Ox O2 Delivery O2 Flow Rate FiO2 12/05/16 13:24 87 18 101/54 97 Room Air 12/05/16 08:33 97.9 12/05/16 07:32 21 Intake and Output 12/04/16 12/04/16 12/05/16 15:00 23:00 07:00 Intake Total 100 ml 750 ml 290 ml Balance 100 ml 750 ml 290 ml Exam flat affect+ less words+ obese, lying in bed, less cooperative w/ pt/ot rr dec bs bibasilar few toes blue black+ Results Result Diagram: 12/05/16 0520 12/05/16 0520 Results 24 hrs Laboratory Tests Test 12/04/16 16:51 12/04/16 21:09 12/05/16 00:46 12/05/16 05:15 Bedside Glucose 298 H 310 H 335 H 238 H Test 12/05/16 05:20 12/05/16 08:20 12/05/16 11:56 12/05/16 13:06 White Blood Count 28.8 #H Red Blood Count 3.10 L Hemoglobin 8.7 L Hematocrit 29.1 L Mean Corpuscular Volume 93.9 Mean Corpuscular Hemoglobin 28.1 L Mean Corpuscular Hemoglobin Concent 29.9 L Red Cell Distribution Width 18.5 H Platelet Count 243 Mean Platelet Volume 10.7 H Neutrophils % 76.0 Band Neutrophils % 2.0 Lymphocytes % 20.0 Monocytes % 2.0 Eosinophils % Basophils % Nucleated Red Blood Cells % Neutrophils # 21.9 H Lymphocytes # 5.8 H Monocytes # 0.6 Eosinophils # Basophils # Nucleated Red Blood Cells # Prothrombin Time 14.4 H Prothrombin Time Ratio 1.1 INR International Normalized Ratio 1.12 Sodium Level 139 Potassium Level 4.6 Chloride Level 102 Carbon Dioxide Level 29 Anion Gap 13 Blood Urea Nitrogen 67 H Creatinine 2.12 H Glucose Level 232 H Calcium Level 9.2 Bedside Glucose 221 H 195 Lab Scanned Report REFERENCE LAB Medications Medications Current Medications Acetaminophen (Tylenol Liquid) 650 mg Q4H PRN NGT PAIN AND OR ELEVATED TEMP Last administered on 11/09/16 11:10; Admin Dose 650 MG; Start 09/21/16 at 02:00 Pantoprazole (Protonix Iv) 40 mg AM IV Last administered on 12/05/16 12:45; Admin Dose 40 MG; Start 09/26/16 at 09:00 Epoetin Raj (Epogen (Esrd)) 10,000 units TuThSa@17 SC Last administered on 18:12; Admin Dose 10,000 UNITS; Start 09/26/16 at 17:00 IV Flush (NS 10 ml) 10 ml PRN PRN IV IV PROTOCOL Last administered on 21:07; Admin Dose 10 ML; Start 09/26/16 at 17:30 Lactulose (Enulose) 20 gm BID PRN PO CONSTIPATION Last administered on 05:34; Admin Dose 20 GM; Start 10/23/16 at 10:30 Amylase/Lipase/ Protease (CREON ([id number]-60k)) 3 cap Q6 NGT Last administered on 12/05/16 12:46; Admin Dose 3 CAP; Start 10/29/16 at 13:00 Latanoprost (Xalatan) 1 drop HS BOTH EYES Last administered on 12/04/16 21:30 ; Admin Dose 1 DROP; Start 10/31/16 at 21:00 Dorzolamide/ Timolol (Cosopt) 1 drop BID BOTH EYES Last administered on 08:53; Admin Dose 1 DROP; Start 10/31/16 at 21:00 Glucagon (Glucagen) 1 mg Q15M PRN IM DECREASED GLUCOSE; Start 11/03/16 at 18:00 Ondansetron HCl (Zofran Inj) 4 mg Q4H PRN IV NAUSEA AND/OR VOMITING Last administered on 12/01/16 15:04; Admin Dose 4 MG; Start 11/04/16 at 23:00 Eye Lubricant (Artificial Tears Oph) 2 drop QID BOTH EYES Last administered on 12/05/16 12:47; Admin Dose 2 DROP; Start 11/07/16 at 09:00 Morphine Sulfate (morphine) 1 mg Q3H PRN IV pain Last administered on 11:49; Admin Dose 1 MG; Start 11/10/16 at 08:00 Aspirin (Aspirin) 81 mg DAILY GTB Last administered on 12/05/16 12:46; Admin Dose 81 MG; Start 11/12/16 at 19:00 Miscellaneous Information 1 ea NOTE XX ; Start 11/14/16 at 10:00 Glucose (Glutose) 15 gm Q15M PRN PO DECREASED GLUCOSE; Start 11/14/16 at 10:00 Glucose (Glutose) 22.5 gm Q15M PRN PO DECREASED GLUCOSE; Start 11/14/16 at 10: 00 Dextrose (D50w Syringe) 25 ml Q15M PRN IV DECREASED GLUCOSE; Start 11/14/16 at 10:00 Dextrose (D50w Syringe) 50 ml Q15M PRN IV DECREASED GLUCOSE; Start 11/14/16 at 10:00 Glucose (Glutose) 15 gm Q15M PRN BUCCAL DECREASED GLUCOSE; Start 11/14/16 at 10 :00 Escitalopram Oxalate (Lexapro) 10 mg DAILY GTB Last administered on 12/05/16 12 :46; Admin Dose 10 MG; Start 11/16/16 at 12:30 Clopidogrel Bisulfate (plaVIX) 75 mg DAILY GTB Last administered on 12/05/16 12 :46; Admin Dose 75 MG; Start 11/18/16 at 13:00 Lactobacillus Acidophilus (Florajen3 Capsule) 1 each TID PEG Last administered on 12/05/16 12:46; Admin Dose 1 EACH; Start 11/23/16 at 21:00 Calcium Carbonate (Tums) 500 mg TID PEG Last administered on 12/05/16 12:46; Admin Dose 500 MG; Start 11/23/16 at 21:00 Metoprolol Tartrate (Lopressor) 25 mg BID GTB Last administered on 12/04/16 21 :06; Admin Dose 25 MG; Start 11/23/16 at 21:00 Insulin Aspart (Novolog Insulin Pen) (Adult SC Insulin - Mild Algorithm)... Q4 SC Last administered on 12/05/16 13:11; Admin Dose 2 UNIT; Start 12/02/16 at 01 :00 Metoclopramide HCl (Reglan) 5 mg Q6 PEG Last administered on 12/05/16 12:46; Admin Dose 5 MG; Start 12/03/16 at 01:00 Insulin Glargine (Lantus) 38 unit DAILY@08 SC Last administered on 12/05/16 08: 51; Admin Dose 38 UNIT; Start 12/05/16 at 08:00 Gentamicin Sulfate GENTAMICIN PER PHARMACY NOTE XX ; Start 12/05/16 at 13:30 Vancomycin HCl/ Sodium Chloride (Vancocin/NS) 500 ml @ 125 mls/hr ONCE IVPB ; Start 12/05/16 at 15:00; Stop 12/05/16 at 23:56 SHAMA LOPEZ MD Dec 05, 2016 14:02
[2016-12-05] MEDS ORDERED: VANCOMYCIN 2 GM in SOD CHLORIDE 0.9% 500 ML IVPB SCH (15:00)
--- NOTE | 2016-12-05 17:56 | CONS ---
Date/Time of Note Date/Time of Note DATE: 12/05/16 TIME: 17:52 Assessment/Plan Assessment/Plan Chief Complaint/Hosp Course 1. Acute Renal Failure due to ATN . She is now on maintenance hemodialysis . She has less evidence of volume overload .She is having hemodialysis now . 2. ALOC , she continues to be very weak and lethargic . But overall better . She is making progress with PT . 3. liver enzyme elevation has resolved.. 4. CHF , she continues to have lung congestion but her peripheral edema has decreased significantly , she is having fluid removed with dialysis and is overall better from fluid balance standpoint . 5. hypocalcemia/hypoalbuminemia , calcium is higher 6. anemia , She has no active GI bleeding now. 7. peripheral vascular disease .gangrene of toes of both feet . 8. respiratory failure , pulmonary function has improved . 9 dysphagia , she has a PEG . 10. discharge planning . She can be discharged to home or SNF , with outpatient dialysis . 11. DM , blood sugars are high again today , will increase Lantus to 30 units a day . 12. she has an elevated WBC , she is growing e coli in the blood , probably from urine . Antibiotics have been started .recommend ID consult . Dr Franco has seen patient previously and ID is on the case . Problems: Consultation Date/Type/Reason Admit Date/Time Sep 20, 2016 at 19:21 Initial Consult Date 09/23/16 Type of Consultation: renal Referring Provider: ZANDRA ROBISON MD, [facility] 24 HR Interval Summary Free Text/Dictation Patient is now having hemodialysis , BP is low . Will add albumin . Constitutional: no complaints Exam/Review of Systems Vital Signs Vitals Vital Signs Date Time Temp Pulse Resp B/P Pulse Ox O2 Delivery O2 Flow Rate FiO2 12/05/16 13:44 87 18 96 21 12/05/16 13:24 101/54 Room Air 12/05/16 08:33 97.9 Intake and Output 12/04/16 12/04/16 12/05/16 15:00 23:00 07:00 Intake Total 100 ml 750 ml 290 ml Balance 100 ml 750 ml 290 ml Exam Constitutional: alert, oriented Respiratory: clear to auscultation, diminished breath sounds Cardiovascular: edema, regular rate and rhythm Gastrointestinal: soft Musculoskeletal: nl extremities to inspection Results Result Diagram: 12/05/16 0520 12/05/16 0520 Results 24 hrs Laboratory Tests Test 12/04/16 21:09 12/05/16 00:46 12/05/16 05:15 12/05/16 05:20 Bedside Glucose 310 H 335 H 238 H White Blood Count 28.8 #H Red Blood Count 3.10 L Hemoglobin 8.7 L Hematocrit 29.1 L Mean Corpuscular Volume 93.9 Mean Corpuscular Hemoglobin 28.1 L Mean Corpuscular Hemoglobin Concent 29.9 L Red Cell Distribution Width 18.5 H Platelet Count 243 Mean Platelet Volume 10.7 H Neutrophils % 76.0 Band Neutrophils % 2.0 Lymphocytes % 20.0 Monocytes % 2.0 Eosinophils % Basophils % Nucleated Red Blood Cells % Neutrophils # 21.9 H Lymphocytes # 5.8 H Monocytes # 0.6 Eosinophils # Basophils # Nucleated Red Blood Cells # Prothrombin Time 14.4 H Prothrombin Time Ratio 1.1 INR International Normalized Ratio 1.12 Sodium Level 139 Potassium Level 4.6 Chloride Level 102 Carbon Dioxide Level 29 Anion Gap 13 Blood Urea Nitrogen 67 H Creatinine 2.12 H Glucose Level 232 H Calcium Level 9.2 Test 12/05/16 08:20 12/05/16 11:56 12/05/16 13:06 12/05/16 17:26 Bedside Glucose 221 H 195 185 Lab Scanned Report REFERENCE LAB Medications Medications Current Medications Acetaminophen (Tylenol Liquid) 650 mg Q4H PRN NGT PAIN AND OR ELEVATED TEMP Last administered on 11/09/16 11:10; Admin Dose 650 MG; Start 09/21/16 at 02:00 Pantoprazole (Protonix Iv) 40 mg AM IV Last administered on 12/05/16 12:45; Admin Dose 40 MG; Start 09/26/16 at 09:00 Epoetin Raj (Epogen (Esrd)) 10,000 units TuThSa@17 SC Last administered on 18:12; Admin Dose 10,000 UNITS; Start 09/26/16 at 17:00 IV Flush (NS 10 ml) 10 ml PRN PRN IV IV PROTOCOL Last administered on 21:07; Admin Dose 10 ML; Start 09/26/16 at 17:30 Lactulose (Enulose) 20 gm BID PRN PO CONSTIPATION Last administered on 05:34; Admin Dose 20 GM; Start 10/23/16 at 10:30 Amylase/Lipase/ Protease (CREON ([id number])) 3 cap Q6 NGT Last administered on 12/05/16 12:46; Admin Dose 3 CAP; Start 10/29/16 at 13:00 Latanoprost (Xalatan) 1 drop HS BOTH EYES Last administered on 12/04/16 21:30 ; Admin Dose 1 DROP; Start 10/31/16 at 21:00 Dorzolamide/ Timolol (Cosopt) 1 drop BID BOTH EYES Last administered on 08:53; Admin Dose 1 DROP; Start 10/31/16 at 21:00 Glucagon (Glucagen) 1 mg Q15M PRN IM DECREASED GLUCOSE; Start 11/03/16 at 18:00 Ondansetron HCl (Zofran Inj) 4 mg Q4H PRN IV NAUSEA AND/OR VOMITING Last administered on 12/01/16 15:04; Admin Dose 4 MG; Start 11/04/16 at 23:00 Eye Lubricant (Artificial Tears Oph) 2 drop QID BOTH EYES Last administered on 12/05/16 16:27; Admin Dose 2 DROP; Start 11/07/16 at 09:00 Morphine Sulfate (morphine) 1 mg Q3H PRN IV pain Last administered on 11:49; Admin Dose 1 MG; Start 11/10/16 at 08:00 Aspirin (Aspirin) 81 mg DAILY GTB Last administered on 12/05/16 12:46; Admin Dose 81 MG; Start 11/12/16 at 19:00 Miscellaneous Information 1 ea NOTE XX ; Start 11/14/16 at 10:00 Glucose (Glutose) 15 gm Q15M PRN PO DECREASED GLUCOSE; Start 11/14/16 at 10:00 Glucose (Glutose) 22.5 gm Q15M PRN PO DECREASED GLUCOSE; Start 11/14/16 at 10: 00 Dextrose (D50w Syringe) 25 ml Q15M PRN IV DECREASED GLUCOSE; Start 11/14/16 at 10:00 Dextrose (D50w Syringe) 50 ml Q15M PRN IV DECREASED GLUCOSE; Start 11/14/16 at 10:00 Glucose (Glutose) 15 gm Q15M PRN BUCCAL DECREASED GLUCOSE; Start 11/14/16 at 10 :00 Escitalopram Oxalate (Lexapro) 10 mg DAILY GTB Last administered on 12/05/16 12 :46; Admin Dose 10 MG; Start 11/16/16 at 12:30 Clopidogrel Bisulfate (plaVIX) 75 mg DAILY GTB Last administered on 12/05/16 12 :46; Admin Dose 75 MG; Start 11/18/16 at 13:00 Lactobacillus Acidophilus (Florajen3 Capsule) 1 each TID PEG Last administered on 12/05/16 12:46; Admin Dose 1 EACH; Start 11/23/16 at 21:00 Calcium Carbonate (Tums) 500 mg TID PEG Last administered on 12/05/16 12:46; Admin Dose 500 MG; Start 11/23/16 at 21:00 Metoprolol Tartrate (Lopressor) 25 mg BID GTB Last administered on 12/04/16 21 :06; Admin Dose 25 MG; Start 11/23/16 at 21:00 Insulin Aspart (Novolog Insulin Pen) (Adult SC Insulin - Mild Algorithm)... Q4 SC Last administered on 12/05/16 17:40; Admin Dose 2 UNIT; Start 12/02/16 at 01 :00 Metoclopramide HCl (Reglan) 5 mg Q6 PEG Last administered on 12/05/16 12:46; Admin Dose 5 MG; Start 12/03/16 at 01:00 Gentamicin Sulfate GENTAMICIN PER PHARMACY NOTE XX ; Start 12/05/16 at 13:30 Vancomycin HCl/ Sodium Chloride (Vancocin/NS) 500 ml @ 125 mls/hr ONCE IVPB Last administered on 12/05/16 16:27; Admin Dose 125 MLS/HR; Start 12/05/16 at 15: 00; Stop 12/05/16 at 23:56 Insulin Glargine 44 unit 44 unit DAILY@08 SC ; Start 12/06/16 at 08:00 Gentamicin Sulfate/Sodium Chloride (Gentamicin/NS) 103.75 ml @ 104 mls/ hr ONCE IVPB ; Start 12/05/16 at 18:00; Stop 12/05/16 at 20:00 DAMIR MARTINEZ MD Dec 05, 2016 17:56
[2016-12-05] MEDS ORDERED: GENTAMICIN 150 MG in SOD CHLORIDE 0.9% 100 ML IVPB SCH (18:00)
[2016-12-05] MEDS: EPOETIN 10000 UNITS/1 ML INJ (ESRD) SC SCH (18:07)
[2016-12-05] MEDS: LATANOPROST 0.005% 2.5 ML OPH BOTH EYES SCH (21:40)
[2016-12-06] MEDS: METOCLOPRAMIDE 10 MG TAB PEG SCH ×4 (00:12→18:10)
[2016-12-06] MEDS: LEVALBUTEROL (NEB) 1.25 MG/0.5 ML AMP HHN SCH ×4 (01:23→19:36)
[2016-12-06] MEDS: IPRATROPIUM (NEB) 0.5 MG/2.5 ML AMP HHN SCH ×4 (01:23→19:36)
[2016-12-06] MEDS: INSULIN ASPART [NOVOLOG] 3 ML PEN SC SCH ×6 (02:03→21:11)
[2016-12-06 04:49] LABS: ADD SCAN DIFF NO
[2016-12-06 04:57] LABS: ABNORMAL IP MESSAGE 1; BASOPHILS % 0.1 % (0.0-2.0); EOSINOPHILS # 0.1 10^3/ul (0.0-0.5); EOSINOPHILS % 0.4 % (0.0-7.0); HEMOGLOBIN 7.6 g/dl (12.0-16.0); LYMPHOCYTES # 1.8 10^3/ul (0.8-2.9); MEAN CORPUSCULAR HEMOGLOBIN 27.3 pg (29.0-33.0); MEAN CORPUSCULAR HGB CONC 29.2 g/dl (32.0-37.0); MEAN CORPUSCULAR VOLUME 93.5 fl (82.0-101.0); MEAN PLATELET VOLUME 10.7 fl (7.4-10.4); MONOCYTE # 1.9 10^3/ul (0.3-0.9); MONOCYTES % 10.3 % (0.0-11.0); NEUTROPHILS % 78.1 % (39.0-77.0); NUCLEATED RED BLOOD CELLS # 0.1 10^3/ul (0.0-0.0); NUCLEATED RED BLOOD CELLS% 0.3 /100WBC (0.0-0.0); RED BLOOD COUNT 2.78 10^6/ul (4.20-5.40); RED CELL DISTRIBUTION WIDTH 18.3 % (11.5-14.5); WHITE BLOOD COUNT 17.9 10^3/ul (4.8-10.8)
[2016-12-06 05:25] LABS: PLATELET COUNT 189 10^3/UL (140-415)
[2016-12-06 05:32] LABS: CALCIUM 8.5 mg/dl (8.4-10.2); CREATININE 1.64 mg/dl (0.44-1.00); POTASSIUM 3.8 mmol/L (3.5-5.1)
[2016-12-06] MEDS: CREON (12k-38k-60k) 1 CAP NGT SCH ×3 (05:38→18:39)
[2016-12-06 08:00] VITALS: BP 109/57; RESP 18
[2016-12-06] MEDS ORDERED: INSULIN GLARGINE [LANtus] 3 ML PEN SC SCH (08:00)
[2016-12-06] MEDS ORDERED: LEVOFLOXACIN 250MG/D5W (PMX) 50 ML IVPB SCH (09:00)
[2016-12-06] MEDS: L ACIDOPHIL/B LACTIS/B LONGUM CAPSULE PEG SCH ×3 (09:00→21:07)
--- NOTE | 2016-12-06 09:29 | CONS ---
Date/Time of Note Date/Time of Note DATE: 12/06/16 TIME: 09:24 Assessment/Plan Assessment/Plan Chief Complaint/Hosp Course 1. Acute Renal Failure due to ATN . She is now on maintenance hemodialysis . She has less evidence of volume overload . Dialysis has been ordered for tomorrow. She is currently on a Friday schedule. 2. ALOC , she continues to be very weak and lethargic . But overall better . She is making progress with PT . 3. liver enzyme elevation has resolved.. 4. CHF , her chest x-ray shows some clearing, she is having fluid removed with dialysis and is overall better with fluid balance. 5. hypocalcemia/hypoalbuminemia , calcium is higher 6. anemia , She has no active GI bleeding now. 7. peripheral vascular disease .gangrene of toes of both feet . 8. respiratory failure , pulmonary function has improved . 9 dysphagia , she has a PEG . 10. discharge planning . She can be discharged to home or SNF , with outpatient dialysis . 11. DM , blood sugars are high again today , will increase Lantus to 30 units a day . 12. Leukocytosis , WBC is down to 17,000 today, she is growing e coli in the blood , from urine . Antibiotics have been started and she is being followed by infectious disease databases computer consultant. They are managing her antibiotics. . Problems: Consultation Date/Type/Reason Admit Date/Time Sep 20, 2016 at 19:21 Initial Consult Date 09/23/16 Type of Consultation: renal Referring Provider: ZANDRA ROBISON MD, [facility] 24 HR Interval Summary Free Text/Dictation She is more awake today. She had hemodialysis yesterday. Constitutional: no complaints Exam/Review of Systems Vital Signs Vitals Vital Signs Date Time Temp Pulse Resp B/P Pulse Ox O2 Delivery O2 Flow Rate FiO2 12/06/16 08:12 89 18 96 21 12/06/16 08:00 98.5 109/57 12/05/16 13:24 Room Air Intake and Output 12/05/16 12/05/16 12/06/16 15:00 23:00 07:00 Intake Total 550 ml 1323.75 ml Output Total 2500 ml Balance -1950 ml 1323.75 ml Exam Constitutional: alert, oriented Psych: no complaints Respiratory: clear to auscultation, diminished breath sounds Cardiovascular: regular rate and rhythm Gastrointestinal: non-tender, soft Musculoskeletal: nl extremities to inspection Results Result Diagram: 12/06/16 0431 12/06/16 0431 Results 24 hrs Laboratory Tests Test 12/05/16 11:56 12/05/16 13:06 12/05/16 17:26 12/05/16 21:17 Lab Scanned Report REFERENCE LAB Bedside Glucose 195 185 194 Test 12/06/16 01:48 12/06/16 04:31 12/06/16 05:36 Bedside Glucose 171 138 White Blood Count 17.9 #H Red Blood Count 2.78 L Hemoglobin 7.6 L Hematocrit 26.0 L Mean Corpuscular Volume 93.5 Mean Corpuscular Hemoglobin 27.3 L Mean Corpuscular Hemoglobin Concent 29.2 L Red Cell Distribution Width 18.3 H Platelet Count 189 # Mean Platelet Volume 10.7 H Neutrophils % 78.1 H Lymphocytes % 10.0 L Monocytes % 10.3 Eosinophils % 0.4 Basophils % 0.1 Nucleated Red Blood Cells % 0.3 H Neutrophils # 14.0 H Lymphocytes # 1.8 Monocytes # 1.9 H Eosinophils # 0.1 Basophils # 0.0 Nucleated Red Blood Cells # 0.1 H Sodium Level 139 Potassium Level 3.8 Chloride Level 99 Carbon Dioxide Level 28 Anion Gap 16 Blood Urea Nitrogen 51 H Creatinine 1.64 H Glucose Level 136 # Calcium Level 8.5 Medications Medications Current Medications Acetaminophen (Tylenol Liquid) 650 mg Q4H PRN NGT PAIN AND OR ELEVATED TEMP Last administered on 11/09/16 11:10; Admin Dose 650 MG; Start 09/21/16 at 02:00 Pantoprazole (Protonix Iv) 40 mg AM IV Last administered on 12/05/16 12:45; Admin Dose 40 MG; Start 09/26/16 at 09:00 Epoetin Raj (Epogen (Esrd)) 10,000 units TuThSa@17 SC Last administered on 12/05 18:07; Admin Dose 10,000 UNITS; Start 09/26/16 at 17:00 IV Flush (NS 10 ml) 10 ml PRN PRN IV IV PROTOCOL Last administered on 12/05/16 20:20; Admin Dose 10 ML; Start 09/26/16 at 17:30 Lactulose (Enulose) 20 gm BID PRN PO CONSTIPATION Last administered on 05:34; Admin Dose 20 GM; Start 10/23/16 at 10:30 Amylase/Lipase/ Protease (CREON ([id number])) 3 cap Q6 NGT Last administered on 12/06/16 05:38; Admin Dose 3 CAP; Start 10/29/16 at 13:00 Latanoprost (Xalatan) 1 drop HS BOTH EYES Last administered on 12/05/16 21:40; Admin Dose 1 DROP; Start 10/31/16 at 21:00 Dorzolamide/ Timolol (Cosopt) 1 drop BID BOTH EYES Last administered on 21:34; Admin Dose 1 DROP; Start 10/31/16 at 21:00 Glucagon (Glucagen) 1 mg Q15M PRN IM DECREASED GLUCOSE; Start 11/03/16 at 18:00 Ondansetron HCl (Zofran Inj) 4 mg Q4H PRN IV NAUSEA AND/OR VOMITING Last administered on 12/01/16 15:04; Admin Dose 4 MG; Start 11/04/16 at 23:00 Eye Lubricant (Artificial Tears Oph) 2 drop QID BOTH EYES Last administered on 12/05/16 21:34; Admin Dose 2 DROP; Start 11/07/16 at 09:00 Morphine Sulfate (morphine) 1 mg Q3H PRN IV pain Last administered on 11:49; Admin Dose 1 MG; Start 11/10/16 at 08:00 Aspirin (Aspirin) 81 mg DAILY GTB Last administered on 12/05/16 12:46; Admin Dose 81 MG; Start 11/12/16 at 19:00 Miscellaneous Information 1 ea NOTE XX ; Start 11/14/16 at 10:00 Glucose (Glutose) 15 gm Q15M PRN PO DECREASED GLUCOSE; Start 11/14/16 at 10:00 Glucose (Glutose) 22.5 gm Q15M PRN PO DECREASED GLUCOSE; Start 11/14/16 at 10: 00 Dextrose (D50w Syringe) 25 ml Q15M PRN IV DECREASED GLUCOSE; Start 11/14/16 at 10:00 Dextrose (D50w Syringe) 50 ml Q15M PRN IV DECREASED GLUCOSE; Start 11/14/16 at 10:00 Glucose (Glutose) 15 gm Q15M PRN BUCCAL DECREASED GLUCOSE; Start 11/14/16 at 10 :00 Escitalopram Oxalate (Lexapro) 10 mg DAILY GTB Last administered on 12/05/16 12 :46; Admin Dose 10 MG; Start 11/16/16 at 12:30 Clopidogrel Bisulfate (plaVIX) 75 mg DAILY GTB Last administered on 12/05/16 12 :46; Admin Dose 75 MG; Start 11/18/16 at 13:00 Lactobacillus Acidophilus (Florajen3 Capsule) 1 each TID PEG Last administered on 12/05/16 21:30; Admin Dose 1 EACH; Start 11/23/16 at 21:00 Calcium Carbonate (Tums) 500 mg TID PEG Last administered on 12/05/16 21:30; Admin Dose 500 MG; Start 11/23/16 at 21:00 Metoprolol Tartrate (Lopressor) 25 mg BID GTB Last administered on 12/04/16 21 :06; Admin Dose 25 MG; Start 11/23/16 at 21:00 Insulin Aspart (Novolog Insulin Pen) (Adult SC Insulin - Mild Algorithm)... Q4 SC Last administered on 12/06/16 02:03; Admin Dose 1 UNIT; Start 12/02/16 at 01 :00 Metoclopramide HCl (Reglan) 5 mg Q6 PEG Last administered on 12/06/16 05:38; Admin Dose 5 MG; Start 12/03/16 at 01:00 Gentamicin Sulfate (Gentamicin Iv Per Pharmacy) GENTAMICIN PER PHARMACY NOTE XX ; Start 12/05/16 at 13:30 Insulin Glargine (Lantus) 44 unit DAILY@08 SC ; Start 12/06/16 at 08:00 DAMIR MARTINEZ MD Dec 06, 2016 09:29
[2016-12-06] MEDS: DORZOLAMIDE/TIMOLOL 10 ML OPH BOTH EYES SCH ×2 (09:51→21:05)
[2016-12-06] MEDS: PANTOPRAZOLE 40 MG INJ IV SCH (09:51)
[2016-12-06] MEDS: ESCITALOPRAM 10 MG TAB GTB SCH (09:52)
[2016-12-06] MEDS: CALCIUM CARBONATE 500 MG CHEW TAB PEG SCH ×3 (09:52→21:07)
[2016-12-06] MEDS: ASPIRIN 81 MG TAB GTB SCH (09:52)
[2016-12-06] MEDS: CLOPIDOGREL 75 MG TAB GTB SCH (09:52)
[2016-12-06] MEDS: METOPROLOL 25 MG TAB GTB SCH ×2 (09:55→21:07)
[2016-12-06] MEDS: ARTIFICIAL TEARS 15 ML OPH BOTH EYES SCH ×4 (09:56→21:05)
[2016-12-06] MEDS ORDERED: AMIKACIN IV PER PHARMACY XX SCH (10:30)
[2016-12-06] MEDS ORDERED: GENTAMICIN 80 MG/NS (PMX) 50 ML IVPB SCH (12:00)
--- NOTE | 2016-12-06 12:57 | CONS ---
Date/Time of Note Date/Time of Note DATE: 12/06/16 TIME: 12:54 Assessment/Plan Assessment/Plan Chief Complaint/Hosp Course SUBJECTIVE: No acute changes, lying comfortably in bed, afebrile. INDWELLINGS: Right chest Perm-A-Cath, left upper extremity PICC line. MICROBIOLOGY: Blood culture growing E. coli resistant to Ancef, susceptible to all other antibiotics. Urine culture growing E. coli, enterococcus species, Kleb ESBL. ANTIMICROBIALS: Vanco, Amikacin PHYSICAL EXAMINATION: GENERAL: This is a well-developed, chronically ill-appearing, elderly woman who is in no distress. HEENT: Head atraumatic, normocephalic. Sclerae anicteric. Buccal mucosa dry. NECK: Supple, trachea midline. CHEST: Rise symmetrical. Breath sounds diminished to bases. HEART: S1, S2. ABDOMEN: Soft, bowel tones present. EXTREMITIES: Bilateral toes gangrenous changes. ASSESSMENT: 1. Sepsis with persistent leukocytosis. 2. Bacteremia, likely secondary to urinary tract infection, rule out line sepsis. 3. polymicrobial urinary tract infection. 4. Status post pneumonia. 5. End-stage renal disease, hemodialysis dependent. 6. 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 7. Dysphagia. 8. History of cardiopulmonary arrest with encephalopathy. PLAN: The patient is clinically stable. Blood culture repeated from hemodialysis preliminary negative, Amikacin started to cover ESBL, continue Vanco, f/u final cx DW staff Problems: Consultation Date/Type/Reason Admit Date/Time Sep 20, 2016 at 19:21 Initial Consult Date 09/23/16 Type of Consultation: ID Referring Provider: ZANDRA ROBSION MD, [facility] Exam/Review of Systems Vital Signs Vitals Vital Signs Date Time Temp Pulse Resp B/P Pulse Ox O2 Delivery O2 Flow Rate FiO2 12/06/16 08:12 89 18 96 21 12/06/16 08:00 98.5 109/57 12/05/16 13:24 Room Air Intake and Output 12/05/16 12/05/16 12/06/16 15:00 23:00 07:00 Intake Total 550 ml 1323.75 ml Output Total 2500 ml Balance -1950 ml 1323.75 ml Results Result Diagram: 12/06/16 0431 12/06/16 0431 Results 24 hrs Laboratory Tests Test 12/05/16 13:06 12/05/16 17:26 12/05/16 21:17 12/06/16 01:48 Bedside Glucose 195 185 194 171 Test 12/06/16 04:31 12/06/16 05:36 12/06/16 09:43 White Blood Count 17.9 #H Red Blood Count 2.78 L Hemoglobin 7.6 L Hematocrit 26.0 L Mean Corpuscular Volume 93.5 Mean Corpuscular Hemoglobin 27.3 L Mean Corpuscular Hemoglobin Concent 29.2 L Red Cell Distribution Width 18.3 H Platelet Count 189 # Mean Platelet Volume 10.7 H Neutrophils % 78.1 H Lymphocytes % 10.0 L Monocytes % 10.3 Eosinophils % 0.4 Basophils % 0.1 Nucleated Red Blood Cells % 0.3 H Neutrophils # 14.0 H Lymphocytes # 1.8 Monocytes # 1.9 H Eosinophils # 0.1 Basophils # 0.0 Nucleated Red Blood Cells # 0.1 H Sodium Level 139 Potassium Level 3.8 Chloride Level 99 Carbon Dioxide Level 28 Anion Gap 16 Blood Urea Nitrogen 51 H Creatinine 1.64 H Glucose Level 136 # Calcium Level 8.5 Bedside Glucose 138 130 Medications Medications Current Medications Acetaminophen (Tylenol Liquid) 650 mg Q4H PRN NGT PAIN AND OR ELEVATED TEMP Last administered on 11/09/16 11:10; Admin Dose 650 MG; Start 09/21/16 at 02:00 Pantoprazole (Protonix Iv) 40 mg AM IV Last administered on 12/06/16 09:51; Admin Dose 40 MG; Start 09/26/16 at 09:00 Epoetin Raj (Epogen (Esrd)) [facility] Last administered on 12/05 18:07; Admin Dose 10,000 UNITS; Start 09/26/16 at 17:00 IV Flush (NS 10 ml) 10 ml PRN PRN IV IV PROTOCOL Last administered on 12/05/16 20:20; Admin Dose 10 ML; Start 09/26/16 at 17:30 Lactulose (Enulose) 20 gm BID PRN PO CONSTIPATION Last administered on 05:34; Admin Dose 20 GM; Start 10/23/16 at 10:30 Amylase/Lipase/ Protease (CREON (12k-38k-60k)) 3 cap Q6 NGT Last administered on 12/06/16 05:38; Admin Dose 3 CAP; Start 10/29/16 at 13:00 Latanoprost (Xalatan) 1 drop HS BOTH EYES Last administered on 12/05/16 21:40; Admin Dose 1 DROP; Start 10/31/16 at 21:00 Dorzolamide/ Timolol (Cosopt) 1 drop BID BOTH EYES Last administered on 09:51; Admin Dose 1 DROP; Start 10/31/16 at 21:00 Glucagon (Glucagen) 1 mg Q15M PRN IM DECREASED GLUCOSE; Start 11/03/16 at 18:00 Ondansetron HCl (Zofran Inj) 4 mg Q4H PRN IV NAUSEA AND/OR VOMITING Last administered on 12/01/16 15:04; Admin Dose 4 MG; Start 11/04/16 at 23:00 Eye Lubricant (Artificial Tears Oph) 2 drop QID BOTH EYES Last administered on 12/06/16 09:56; Admin Dose 2 DROP; Start 11/07/16 at 09:00 Morphine Sulfate (morphine) 1 mg Q3H PRN IV pain Last administered on 11:49; Admin Dose 1 MG; Start 11/10/16 at 08:00 Aspirin (Aspirin) 81 mg DAILY GTB Last administered on 12/06/16 09:52; Admin Dose 81 MG; Start 11/12/16 at 19:00 Miscellaneous Information 1 ea NOTE XX ; Start 11/14/16 at 10:00 Glucose (Glutose) 15 gm Q15M PRN PO DECREASED GLUCOSE; Start 11/14/16 at 10:00 Glucose (Glutose) 22.5 gm Q15M PRN PO DECREASED GLUCOSE; Start 11/14/16 at 10: 00 Dextrose (D50w Syringe) 25 ml Q15M PRN IV DECREASED GLUCOSE; Start 11/14/16 at 10:00 Dextrose (D50w Syringe) 50 ml Q15M PRN IV DECREASED GLUCOSE; Start 11/14/16 at 10:00 Glucose (Glutose) 15 gm Q15M PRN BUCCAL DECREASED GLUCOSE; Start 11/14/16 at 10 :00 Escitalopram Oxalate (Lexapro) 10 mg DAILY GTB Last administered on 12/06/16 09 :52; Admin Dose 10 MG; Start 11/16/16 at 12:30 Clopidogrel Bisulfate (plaVIX) 75 mg DAILY GTB Last administered on 12/06/16 09 :52; Admin Dose 75 MG; Start 11/18/16 at 13:00 Lactobacillus Acidophilus (Florajen3 Capsule) 1 each TID PEG Last administered on 12/05/16 21:30; Admin Dose 1 EACH; Start 11/23/16 at 21:00 Calcium Carbonate (Tums) 500 mg TID PEG Last administered on 12/06/16 09:52; Admin Dose 500 MG; Start 11/23/16 at 21:00 Metoprolol Tartrate (Lopressor) 25 mg BID GTB Last administered on 12/06/16 09: 55; Admin Dose 25 MG; Start 11/23/16 at 21:00 Insulin Aspart (Novolog Insulin Pen) (Adult SC Insulin - Mild Algorithm)... Q4 SC Last administered on 12/06/16 02:03; Admin Dose 1 UNIT; Start 12/02/16 at 01 :00 Metoclopramide HCl (Reglan) 5 mg Q6 PEG Last administered on 12/06/16 05:38; Admin Dose 5 MG; Start 12/03/16 at 01:00 Insulin Glargine (Lantus) 44 unit DAILY@08 SC Last administered on 12/06/16 09: 49; Admin Dose 44 UNIT; Start 12/06/16 at 08:00 Amikacin Sulfate AMIKACIN PER PHARMACY NOTE XX ; Start 12/06/16 at 10:30 Amikacin Sulfate/ Sodium Chloride (Amikacin/NS) 102.28 ml @ 102 mls/ hr 14 IVPB ; Start 12/06/16 at 14:00; Stop 12/06/16 at 15:00 ROSALINA SIMS NP Dec 06, 2016 12:57
[2016-12-06] MEDS ORDERED: AMIKACIN 500 MG in SOD CHLORIDE 0.9% 100 ML IVPB SCH ×2 (13:00→14:00)
[2016-12-06] MEDS ORDERED: SOD CHLORIDE 0.9% IVPB SCH (14:00)
[2016-12-06] MEDS ORDERED: AMIKACIN IVPB SCH (14:00)
[2016-12-06] MEDS ORDERED: VANCOMYCIN 1.25 GM in SOD CHLORIDE 0.9% 250 ML IVPB SCH (15:00)
--- NOTE | 2016-12-06 15:09 | PN ---
Date/Time of Note Date/Time of Note DATE: 12/06/16 TIME: 15:04 Assessment/Plan VTE Prophylaxis VTE Prophylaxis Intervention: other (asa, plavix) Lines/Catheters IV Catheter Type (from Nrsg): PICC Line Central line still needed: No Urinary Cath still in place: No Assessment/Plan Assessment/Plan 1. uti/ fever--on iv atbx 2. arf/ anemia--dialysis dep 3. rld/ pulm effusion 4. depression--very poor px 5. musc weak/ peg feed dep 6. cad/ htn/ pad--on anticoag ---cont iv atbx ---per ID ---per renal ---per pulm ---cont all supportive cares ---1 prbc w/ dialysis ---plavix only on mon/fri/fri when ther's no dialysis Subjective 24 Hr Interval Summary Free Text/Dictation awake, depressed, no complaints Exam/Review of Systems Vital Signs Vitals Vital Signs Date Time Temp Pulse Resp B/P Pulse Ox O2 Delivery O2 Flow Rate FiO2 12/06/16 14:00 81 18 96 21 12/06/16 08:00 98.5 109/57 12/05/16 13:24 Room Air Intake and Output 12/05/16 12/05/16 12/06/16 15:00 23:00 07:00 Intake Total 550 ml 1323.75 ml Output Total 2500 ml Balance -1950 ml 1323.75 ml Exam flat affect+ obese, in bed, not much progress w/ ot/pt rr bibasilar bs dec+ few toes blue black Results Result Diagram: 12/06/16 0431 12/06/16 0431 Results 24 hrs Laboratory Tests Test 12/05/16 17:26 12/05/16 21:17 12/06/16 01:48 12/06/16 04:31 Bedside Glucose 185 194 171 White Blood Count 17.9 #H Red Blood Count 2.78 L Hemoglobin 7.6 L Hematocrit 26.0 L Mean Corpuscular Volume 93.5 Mean Corpuscular Hemoglobin 27.3 L Mean Corpuscular Hemoglobin Concent 29.2 L Red Cell Distribution Width 18.3 H Platelet Count 189 # Mean Platelet Volume 10.7 H Neutrophils % 78.1 H Lymphocytes % 10.0 L Monocytes % 10.3 Eosinophils % 0.4 Basophils % 0.1 Nucleated Red Blood Cells % 0.3 H Neutrophils # 14.0 H Lymphocytes # 1.8 Monocytes # 1.9 H Eosinophils # 0.1 Basophils # 0.0 Nucleated Red Blood Cells # 0.1 H Sodium Level 139 Potassium Level 3.8 Chloride Level 99 Carbon Dioxide Level 28 Anion Gap 16 Blood Urea Nitrogen 51 H Creatinine 1.64 H Glucose Level 136 # Calcium Level 8.5 Test 12/06/16 05:36 12/06/16 09:43 12/06/16 13:03 Bedside Glucose 138 130 141 Medications Medications Current Medications Acetaminophen (Tylenol Liquid) 650 mg Q4H PRN NGT PAIN AND OR ELEVATED TEMP Last administered on 11/09/16 11:10; Admin Dose 650 MG; Start 09/21/16 at 02:00 Pantoprazole (Protonix Iv) 40 mg AM IV Last administered on 12/06/16 09:51; Admin Dose 40 MG; Start 09/26/16 at 09:00 Epoetin Raj (Epogen (Esrd)) 10,000 units TuThSa@17 SC Last administered on 12/05 18:07; Admin Dose 10,000 UNITS; Start 09/26/16 at 17:00 IV Flush (NS 10 ml) 10 ml PRN PRN IV IV PROTOCOL Last administered on 12/05/16 20:20; Admin Dose 10 ML; Start 09/26/16 at 17:30 Lactulose (Enulose) 20 gm BID PRN PO CONSTIPATION Last administered on 05:34; Admin Dose 20 GM; Start 10/23/16 at 10:30 Amylase/Lipase/ Protease (CREON (12b-27k-60k)) 3 cap Q6 NGT Last administered on 12/06/16 13:06; Admin Dose 3 CAP; Start 10/29/16 at 13:00 Latanoprost (Xalatan) 1 drop HS BOTH EYES Last administered on 12/05/16 21:40; Admin Dose 1 DROP; Start 10/31/16 at 21:00 Dorzolamide/ Timolol (Cosopt) 1 drop BID BOTH EYES Last administered on 09:51; Admin Dose 1 DROP; Start 10/31/16 at 21:00 Glucagon (Glucagen) 1 mg Q15M PRN IM DECREASED GLUCOSE; Start 11/03/16 at 18:00 Ondansetron HCl (Zofran Inj) 4 mg Q4H PRN IV NAUSEA AND/OR VOMITING Last administered on 12/01/16 15:04; Admin Dose 4 MG; Start 11/04/16 at 23:00 Eye Lubricant (Artificial Tears Oph) 2 drop QID BOTH EYES Last administered on 12/06/16 13:04; Admin Dose 2 DROP; Start 11/07/16 at 09:00 Morphine Sulfate (morphine) 1 mg Q3H PRN IV pain Last administered on 11:49; Admin Dose 1 MG; Start 11/10/16 at 08:00 Aspirin (Aspirin) 81 mg DAILY GTB Last administered on 12/06/16 09:52; Admin Dose 81 MG; Start 11/12/16 at 19:00 Miscellaneous Information 1 ea NOTE XX ; Start 11/14/16 at 10:00 Glucose (Glutose) 15 gm Q15M PRN PO DECREASED GLUCOSE; Start 11/14/16 at 10:00 Glucose (Glutose) 22.5 gm Q15M PRN PO DECREASED GLUCOSE; Start 11/14/16 at 10: 00 Dextrose (D50w Syringe) 25 ml Q15M PRN IV DECREASED GLUCOSE; Start 11/14/16 at 10:00 Dextrose (D50w Syringe) 50 ml Q15M PRN IV DECREASED GLUCOSE; Start 11/14/16 at 10:00 Glucose (Glutose) 15 gm Q15M PRN BUCCAL DECREASED GLUCOSE; Start 11/14/16 at 10 :00 Escitalopram Oxalate (Lexapro) 10 mg DAILY GTB Last administered on 12/06/16 09 :52; Admin Dose 10 MG; Start 11/16/16 at 12:30 Clopidogrel Bisulfate (plaVIX) 75 mg DAILY GTB Last administered on 12/06/16 09 :52; Admin Dose 75 MG; Start 11/18/16 at 13:00 Lactobacillus Acidophilus (Florajen3 Capsule) 1 each TID PEG Last administered on 12/06/16 13:05; Admin Dose 1 EACH; Start 11/23/16 at 21:00 Calcium Carbonate (Tums) 500 mg TID PEG Last administered on 12/06/16 13:31; Admin Dose 500 MG; Start 11/23/16 at 21:00 Metoprolol Tartrate (Lopressor) 25 mg BID GTB Last administered on 12/06/16 09: 55; Admin Dose 25 MG; Start 11/23/16 at 21:00 Insulin Aspart (Novolog Insulin Pen) (Adult SC Insulin - Mild Algorithm)... Q4 SC Last administered on 12/06/16 13:10; Admin Dose 1 UNIT; Start 12/02/16 at 01 :00 Metoclopramide HCl (Reglan) 5 mg Q6 PEG Last administered on 12/06/16 13:31; Admin Dose 5 MG; Start 12/03/16 at 01:00 Insulin Glargine (Lantus) 44 unit DAILY@08 SC Last administered on 12/06/16 09: 49; Admin Dose 44 UNIT; Start 12/06/16 at 08:00 Amikacin Sulfate (Amikacin Iv Per Pharmacy) AMIKACIN PER PHARMACY NOTE XX ; Start 12/06/16 at 10:30 Miscellaneous Information (*Rx Drug Level Order Reminder*) RANDOM VANCO LEVEL... ONCE ONCE XX ; Start 12/07/16 at 05:00; Stop 12/07/16 at 05:01 SHAMA LOPEZ MD Dec 06, 2016 15:09
[2016-12-06 19:00] VITALS: BP 109/53; RESP 18
[2016-12-06] MEDS: LATANOPROST 0.005% 2.5 ML OPH BOTH EYES SCH (21:22)
[2016-12-07] VITALS (12 sets, daily range): BP systolic 99–128; BP diastolic 52–70; PULSE 77–86; RESP 18–20
[2016-12-07] MEDS: CREON (12k-38k-60k) 1 CAP NGT SCH ×4 (01:00→17:27)
[2016-12-07] MEDS: INSULIN ASPART [NOVOLOG] 3 ML PEN SC SCH ×6 (01:00→21:00)
[2016-12-07] MEDS: METOCLOPRAMIDE 10 MG TAB PEG SCH ×4 (01:00→17:27)
[2016-12-07] MEDS: LEVALBUTEROL (NEB) 1.25 MG/0.5 ML AMP HHN SCH ×4 (01:34→20:08)
[2016-12-07] MEDS: IPRATROPIUM (NEB) 0.5 MG/2.5 ML AMP HHN SCH ×4 (01:34→20:08)
[2016-12-07] MEDS: DEXTROSE 50% 50 ML SYRINGE IV PRN (05:29)
[2016-12-07] MEDS ORDERED: ALTEPLASE (CATHFLO) 2 MG INJ CATHETER PRN (08:00)
[2016-12-07] MEDS ORDERED: ALTEPLASE (CATHFLO) 2 MG INJ CATHETER ONE (08:00)
[2016-12-07] MEDS: INSULIN GLARGINE [LANtus] 3 ML PEN SC SCH (11:54)
[2016-12-07] MEDS: L ACIDOPHIL/B LACTIS/B LONGUM CAPSULE PEG SCH ×3 (13:00→21:16)
[2016-12-07] MEDS: CALCIUM CARBONATE 500 MG CHEW TAB PEG SCH ×3 (13:00→21:16)
[2016-12-07] MEDS: ARTIFICIAL TEARS 15 ML OPH BOTH EYES SCH ×4 (13:00→21:16)
[2016-12-07] MEDS: ESCITALOPRAM 10 MG TAB GTB SCH (13:22)
[2016-12-07] MEDS: METOPROLOL 25 MG TAB GTB SCH ×2 (13:23→21:00)
[2016-12-07] MEDS: PANTOPRAZOLE 40 MG INJ IV SCH (13:23)
[2016-12-07] MEDS: DORZOLAMIDE/TIMOLOL 10 ML OPH BOTH EYES SCH ×2 (13:33→21:16)
--- NOTE | 2016-12-07 14:17 | CONS ---
Date/Time of Note Date/Time of Note DATE: 12/07/16 TIME: 14:15 Assessment/Plan Assessment/Plan Chief Complaint/Hosp Course SUBJECTIVE: No acute changes, awake, s/p HD , no fevers INDWELLINGS: Right chest Perm-A-Cath, left upper extremity PICC line. MICROBIOLOGY: Blood culture growing E. coli resistant to Ancef, susceptible to all other antibiotics. Urine culture growing E. coli, enterococcus species, Kleb ESBL. ANTIMICROBIALS: Vanco, Amikacin PHYSICAL EXAMINATION: GENERAL: This is a well-developed, chronically ill-appearing, elderly woman who is in no distress. HEENT: Head atraumatic, normocephalic. Sclerae anicteric. Buccal mucosa dry. NECK: Supple, trachea midline. CHEST: Rise symmetrical. Breath sounds diminished to bases. HEART: S1, S2. ABDOMEN: Soft, bowel tones present. EXTREMITIES: Bilateral toes gangrenous changes. ASSESSMENT: 1. Sepsis with persistent leukocytosis. 2. Bacteremia, likely secondary to urinary tract infection, rule out line sepsis. 3. polymicrobial urinary tract infection. 4. Status post pneumonia. 5. End-stage renal disease, hemodialysis dependent. 6. 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 7. Dysphagia. 8. History of cardiopulmonary arrest with encephalopathy. PLAN: Remains stable. Blood culture repeated from hemodialysis negative, on Amikacin to cover ESBL and Vanco for Enterococcal coverage, f/u labs tomorrow [facility] staff Problems: Consultation Date/Type/Reason Admit Date/Time Sep 20, 2016 at 19:21 Initial Consult Date 09/23/16 Type of Consultation: ID Referring Provider: ZANDRA ROBISON MD, [facility] Exam/Review of Systems Vital Signs Vitals Vital Signs Date Time Temp Pulse Resp B/P Pulse Ox O2 Delivery O2 Flow Rate FiO2 12/07/16 12:30 86 20 12/07/16 11:45 97.0 117/61 12/07/16 10:45 Room Air 12/07/16 08:54 97 12/07/16 08:36 21 Intake and Output 12/06/16 12/06/16 12/07/16 15:00 23:00 07:00 Intake Total 240 ml 1002.28 ml 50 ml Balance 240 ml 1002.28 ml 50 ml Results Result Diagram: 12/06/16 0431 12/07/16 0436 Results 24 hrs Laboratory Tests Test 12/06/16 18:08 12/06/16 21:04 12/07/16 01:18 12/07/16 04:36 Bedside Glucose 136 147 82 Glucose Level 28 #*L Random Vancomycin Level 21.4 Test 12/07/16 05:20 12/07/16 05:41 12/07/16 06:03 12/07/16 11:47 Bedside Glucose 33 *L 151 116 120 Medications Medications Current Medications Acetaminophen (Tylenol Liquid) 650 mg Q4H PRN NGT PAIN AND OR ELEVATED TEMP Last administered on 11/09/16 11:10; Admin Dose 650 MG; Start 09/21/16 at 02:00 Pantoprazole (Protonix Iv) 40 mg AM IV Last administered on 12/07/16 13:23; Admin Dose 40 MG; Start 09/26/16 at 09:00 Epoetin Raj (Epogen (Esrd)) 10,000 units TuThSa@17 SC Last administered on 12/05 18:07; Admin Dose 10,000 UNITS; Start 09/26/16 at 17:00 IV Flush (NS 10 ml) 10 ml PRN PRN IV IV PROTOCOL Last administered on 12/06/16 21:06; Admin Dose 10 ML; Start 09/26/16 at 17:30 Lactulose (Enulose) 20 gm BID PRN PO CONSTIPATION Last administered on 05:34; Admin Dose 20 GM; Start 10/23/16 at 10:30 Amylase/Lipase/ Protease (CREON (78f-[id number])) 3 cap Q6 NGT Last administered on 12/07/16 13:23; Admin Dose 3 CAP; Start 10/29/16 at 13:00 Latanoprost (Xalatan) 1 drop HS BOTH EYES Last administered on 12/06/16 21:22; Admin Dose 1 DROP; Start 10/31/16 at 21:00 Dorzolamide/ Timolol (Cosopt) 1 drop BID BOTH EYES Last administered on 13:33; Admin Dose 1 DROP; Start 10/31/16 at 21:00 Glucagon (Glucagen) 1 mg Q15M PRN IM DECREASED GLUCOSE; Start 11/03/16 at 18:00 Ondansetron HCl (Zofran Inj) 4 mg Q4H PRN IV NAUSEA AND/OR VOMITING Last administered on 12/01/16 15:04; Admin Dose 4 MG; Start 11/04/16 at 23:00 Eye Lubricant (Artificial Tears Oph) 2 drop QID BOTH EYES Last administered on 12/07/16 13:34; Admin Dose 2 DROP; Start 11/07/16 at 09:00 Morphine Sulfate (morphine) 1 mg Q3H PRN IV pain Last administered on 11:49; Admin Dose 1 MG; Start 11/10/16 at 08:00 Miscellaneous Information 1 ea NOTE XX ; Start 11/14/16 at 10:00 Glucose (Glutose) 15 gm Q15M PRN PO DECREASED GLUCOSE; Start 11/14/16 at 10:00 Glucose (Glutose) 22.5 gm Q15M PRN PO DECREASED GLUCOSE; Start 11/14/16 at 10: 00 Dextrose (D50w Syringe) 25 ml Q15M PRN IV DECREASED GLUCOSE; Start 11/14/16 at 10:00 Dextrose (D50w Syringe) 50 ml Q15M PRN IV DECREASED GLUCOSE Last administered on 12/07/16 05:29; Admin Dose 50 ML; Start 11/14/16 at 10:00 Glucose (Glutose) 15 gm Q15M PRN BUCCAL DECREASED GLUCOSE; Start 11/14/16 at 10 :00 Escitalopram Oxalate (Lexapro) 10 mg DAILY GTB Last administered on 12/07/16 13 :22; Admin Dose 10 MG; Start 11/16/16 at 12:30 Lactobacillus Acidophilus (Florajen3 Capsule) 1 each TID PEG Last administered on 12/07/16 13:23; Admin Dose 1 EACH; Start 11/23/16 at 21:00 Calcium Carbonate (Tums) 500 mg TID PEG Last administered on 12/07/16 13:40; Admin Dose 500 MG; Start 11/23/16 at 21:00 Metoprolol Tartrate (Lopressor) 25 mg BID GTB Last administered on 12/07/16 13: 23; Admin Dose 25 MG; Start 11/23/16 at 21:00 Insulin Aspart (Novolog Insulin Pen) (Adult SC Insulin - Mild Algorithm)... Q4 SC Last administered on 12/06/16 21:11; Admin Dose 1 UNIT; Start 12/02/16 at 01 :00 Metoclopramide HCl (Reglan) 5 mg Q6 PEG Last administered on 12/07/16 13:40; Admin Dose 5 MG; Start 12/03/16 at 01:00 Amikacin Sulfate (Amikacin Iv Per Pharmacy) AMIKACIN PER PHARMACY NOTE XX ; Start 12/06/16 at 10:30 Aspirin (Aspirin) 81 mg MONWEDFRI GTB ; Start 12/09/16 at 09:00 Clopidogrel Bisulfate (plaVIX) 75 mg MONWEDFRI GTB ; Start 12/09/16 at 09:00 Insulin Glargine (Lantus) 36 unit DAILY@08 SC Last administered on 12/07/16 11: 54; Admin Dose 36 UNIT; Start 12/07/16 at 08:00 ROSALINA SIMS NP Dec 07, 2016 14:17
[2016-12-07 15:40] LABS: ADD SCAN DIFF NO
--- NOTE | 2016-12-07 15:46 | CONS ---
Date/Time of Note Date/Time of Note DATE: 12/07/16 TIME: 15:42 Assessment/Plan Assessment/Plan Additional Assessment/Plan 1. Acute Renal Failure due to ATN . She is now on maintenance hemodialysis . currntly on hd and tolerating well. She is currently on a Friday schedule. 2. ALOC , she continues to be very weak and lethargic . But overall better . She is making progress with PT . 3-. CHF , improving with hd 4-. anemia , hb lower. no evidence of active bleeding. transfuse per pcp/ gi 5-. peripheral vascular disease .gangrene of toes of both feet .no change 6-. respiratory failure , pulmonary function has improved . 7 dysphagia , she has a PEG . 8. DM , bs too low, will reduce lantus 9-ecoli bacteremia: on abx and id following. prognosis very gaurded Consultation Date/Type/Reason Admit Date/Time Sep 20, 2016 at 19:21 Initial Consult Date 10/22/16 Type of Consultation: ID Reason for Consultation on hd. tolerating well. awake but lethargic. denies sob/ cp Referring Provider: ZANDRA ROBISON MD, [facility] Exam/Review of Systems Vital Signs Vitals Vital Signs Date Time Temp Pulse Resp B/P Pulse Ox O2 Delivery O2 Flow Rate FiO2 12/07/16 14:19 88 18 97 21 12/07/16 11:45 97.0 117/61 12/07/16 10:45 Room Air Intake and Output 12/06/16 12/06/16 12/07/16 15:00 23:00 07:00 Intake Total 240 ml 1002.28 ml 50 ml Balance 240 ml 1002.28 ml 50 ml Exam Constitutional: alert, frail Psych: no complaints Head: normocephalic Eyes: nl conjunctiva Neck: No supple Respiratory: diminished breath sounds Cardiovascular: regular rate and rhythm, No edema Gastrointestinal: non-tender, soft Results Result Diagram: 12/06/16 0431 12/07/16 0436 Results 24 hrs Laboratory Tests Test 12/06/16 18:08 12/06/16 21:04 12/07/16 01:18 12/07/16 04:36 Bedside Glucose 136 147 82 Glucose Level 28 #*L Random Vancomycin Level 21.4 Test 12/07/16 05:15 12/07/16 05:20 12/07/16 05:41 12/07/16 06:03 Stool Occult Blood NEGATIVE Bedside Glucose 33 *L 151 116 Test 12/07/16 11:47 Bedside Glucose 120 Medications Medications Current Medications Acetaminophen (Tylenol Liquid) 650 mg Q4H PRN NGT PAIN AND OR ELEVATED TEMP Last administered on 11/09/16 11:10; Admin Dose 650 MG; Start 09/21/16 at 02:00 Pantoprazole (Protonix Iv) 40 mg AM IV Last administered on 12/07/16 13:23; Admin Dose 40 MG; Start 09/26/16 at 09:00 Epoetin Raj (Epogen (Esrd)) 10,000 units TuThSa@17 SC Last administered on 12/05 18:07; Admin Dose 10,000 UNITS; Start 09/26/16 at 17:00 IV Flush (NS 10 ml) 10 ml PRN PRN IV IV PROTOCOL Last administered on 12/06/16 21:06; Admin Dose 10 ML; Start 09/26/16 at 17:30 Lactulose (Enulose) 20 gm BID PRN PO CONSTIPATION Last administered on 05:34; Admin Dose 20 GM; Start 10/23/16 at 10:30 Amylase/Lipase/ Protease (CREON (12k-38k-60k)) 3 cap Q6 NGT Last administered on 12/07/16 13:23; Admin Dose 3 CAP; Start 10/29/16 at 13:00 Latanoprost (Xalatan) 1 drop HS BOTH EYES Last administered on 12/06/16 21:22; Admin Dose 1 DROP; Start 10/31/16 at 21:00 Dorzolamide/ Timolol (Cosopt) 1 drop BID BOTH EYES Last administered on 13:33; Admin Dose 1 DROP; Start 10/31/16 at 21:00 Glucagon (Glucagen) 1 mg Q15M PRN IM DECREASED GLUCOSE; Start 11/03/16 at 18:00 Ondansetron HCl (Zofran Inj) 4 mg Q4H PRN IV NAUSEA AND/OR VOMITING Last administered on 12/01/16 15:04; Admin Dose 4 MG; Start 11/04/16 at 23:00 Eye Lubricant (Artificial Tears Oph) 2 drop QID BOTH EYES Last administered on 12/07/16 13:34; Admin Dose 2 DROP; Start 11/07/16 at 09:00 Morphine Sulfate (morphine) 1 mg Q3H PRN IV pain Last administered on 11:49; Admin Dose 1 MG; Start 11/10/16 at 08:00 Miscellaneous Information 1 ea NOTE XX ; Start 11/14/16 at 10:00 Glucose (Glutose) 15 gm Q15M PRN PO DECREASED GLUCOSE; Start 11/14/16 at 10:00 Glucose (Glutose) 22.5 gm Q15M PRN PO DECREASED GLUCOSE; Start 11/14/16 at 10: 00 Dextrose (D50w Syringe) 25 ml Q15M PRN IV DECREASED GLUCOSE; Start 11/14/16 at 10:00 Dextrose (D50w Syringe) 50 ml Q15M PRN IV DECREASED GLUCOSE Last administered on 12/07/16 05:29; Admin Dose 50 ML; Start 11/14/16 at 10:00 Glucose (Glutose) 15 gm Q15M PRN BUCCAL DECREASED GLUCOSE; Start 11/14/16 at 10 :00 Escitalopram Oxalate (Lexapro) 10 mg DAILY GTB Last administered on 12/07/16 13 :22; Admin Dose 10 MG; Start 11/16/16 at 12:30 Lactobacillus Acidophilus (Florajen3 Capsule) 1 each TID PEG Last administered on 12/07/16 13:23; Admin Dose 1 EACH; Start 11/23/16 at 21:00 Calcium Carbonate (Tums) 500 mg TID PEG Last administered on 12/07/16 13:40; Admin Dose 500 MG; Start 11/23/16 at 21:00 Metoprolol Tartrate (Lopressor) 25 mg BID GTB Last administered on 12/07/16 13: 23; Admin Dose 25 MG; Start 11/23/16 at 21:00 Insulin Aspart (Novolog Insulin Pen) (Adult SC Insulin - Mild Algorithm)... Q4 SC Last administered on 12/06/16 21:11; Admin Dose 1 UNIT; Start 12/02/16 at 01 :00 Metoclopramide HCl (Reglan) 5 mg Q6 PEG Last administered on 12/07/16 13:40; Admin Dose 5 MG; Start 12/03/16 at 01:00 Amikacin Sulfate (Amikacin Iv Per Pharmacy) AMIKACIN PER PHARMACY NOTE XX ; Start 12/06/16 at 10:30 Aspirin (Aspirin) 81 mg MONWEDFRI GTB ; Start 12/09/16 at 09:00 Clopidogrel Bisulfate (plaVIX) 75 mg MONWEDFRI GTB ; Start 12/09/16 at 09:00 Insulin Glargine (Lantus) 36 unit DAILY@08 SC Last administered on 12/07/16t 11: 54; Admin Dose 36 UNIT; Start 12/07/16 at 08:00 LOPEZ ATKINS MD Dec 07, 2016 15:46
[2016-12-07 15:48] LABS: ABNORMAL IP MESSAGE 1; BASOPHIL # 0.1 10^3/ul (0.0-0.1); BASOPHILS % 0.2 % (0.0-2.0); EOSINOPHILS # 0.1 10^3/ul (0.0-0.5); EOSINOPHILS % 0.3 % (0.0-7.0); HEMATOCRIT 32.8 % (37.0-47.0); HEMOGLOBIN 10.4 g/dl (12.0-16.0); LYMPHOCYTES # 1.6 10^3/ul (0.8-2.9); MEAN CORPUSCULAR HEMOGLOBIN 28.7 pg (29.0-33.0); MEAN CORPUSCULAR HGB CONC 31.7 g/dl (32.0-37.0); MEAN CORPUSCULAR VOLUME 90.6 fl (82.0-101.0); MEAN PLATELET VOLUME 10.1 fl (7.4-10.4); MONOCYTE # 1.8 10^3/ul (0.3-0.9); MONOCYTES % 6.7 % (0.0-11.0); NEUTROPHIL # 22.3 10^3/ul (1.6-7.5); NEUTROPHILS % 84.9 % (39.0-77.0); NUCLEATED RED BLOOD CELLS% 0.1 /100WBC (0.0-0.0); PLATELET COUNT 200 10^3/UL (140-415); RED BLOOD COUNT 3.62 10^6/ul (4.20-5.40); RED CELL DISTRIBUTION WIDTH 17.5 % (11.5-14.5); WHITE BLOOD COUNT 26.3 10^3/ul (4.8-10.8)
[2016-12-07 16:05] LABS: CALCIUM 8.5 mg/dl (8.4-10.2); CREATININE 1.27 mg/dl (0.44-1.00); POTASSIUM 4.2 mmol/L (3.5-5.1)
[2016-12-07] MEDS: AMIKACIN IVPB SCH (16:35)
[2016-12-07] MEDS: SOD CHLORIDE 0.9% IVPB SCH (16:35)
[2016-12-07] MEDS: EPOETIN 10000 UNITS/1 ML INJ (ESRD) SC SCH (17:27)
[2016-12-07] MEDS: LATANOPROST 0.005% 2.5 ML OPH BOTH EYES SCH (21:16)
[2016-12-08] MEDS: CREON (12k-38k-60k) 1 CAP NGT SCH ×6 (00:39→23:39)
[2016-12-08] MEDS: METOCLOPRAMIDE 10 MG TAB PEG SCH ×5 (00:39→23:37)
[2016-12-08] MEDS: INSULIN ASPART [NOVOLOG] 3 ML PEN SC SCH ×6 (01:00→21:00)
[2016-12-08] MEDS: IPRATROPIUM (NEB) 0.5 MG/2.5 ML AMP HHN SCH ×4 (01:16→20:00)
[2016-12-08] MEDS: LEVALBUTEROL (NEB) 1.25 MG/0.5 ML AMP HHN SCH ×4 (01:17→20:00)
--- NOTE | 2016-12-08 01:17 | PN ---
DATE: 12/07/2016 SUBJECTIVE: Patient is awake and minimally responsive. She is on renal dialysis because of renal f ailure due to acute tubular necrosis. She also has gangrene of the right great toe and the tip of t he left second toe. She being seen in renal consultation by Dr. Bermudez and is on a renal dialys is. VITAL SIGNS: Temperature is 98.1, blood pressure varies between 99/52 to 120/59, pulse varies from 77 to 88, respiratory rate varies from 18 to 24. LABORATORY DATA: White blood cell count is 26,300, hemoglobin is 10.4, hematocrit is 32.8%, platele t count is normal. Protime is 14.4 with an INR 1.12. Glucose is 120, sodium is 141, potassium is 4 .2, chloride is 103, carbon dioxide is 30, BUN is 34, creatinine is 1.27, glucose is 128, calcium is 8.5%. Vancomycin trough is 21.4. Stool for blood is negative. Glucose is 135. The patient has been having vaginal bleeding. She is on aspirin and Plavix. She to get gynecologic al consultation for postmenopausal bleeding, and to stop aspirin and Plavix temporarily. To get a psych coordinator because of postmenopausal bleeding, and to get a middle or intermediate school principal, and somebody from the [employer] to see her because of the gangrene of the right great toe and left second toe. Dictated By: LEOBARDO KENYON/JERROD Conf#: [id number] DID#: [id number]
[2016-12-08] MEDS: DEXTROSE 50% 50 ML SYRINGE IV PRN ×2 (05:08→21:45)
[2016-12-08 05:19] LABS: ADD SCAN DIFF NO
[2016-12-08 05:23] LABS: ABNORMAL IP MESSAGE 1; BASOPHILS % 0.2 % (0.0-2.0); EOSINOPHILS # 0.1 10^3/ul (0.0-0.5); EOSINOPHILS % 0.4 % (0.0-7.0); HEMOGLOBIN 9.5 g/dl (12.0-16.0); LYMPHOCYTES # 2.1 10^3/ul (0.8-2.9); LYMPHOCYTES % 9.6 % (15.0-51.0); MEAN CORPUSCULAR HEMOGLOBIN 27.8 pg (29.0-33.0); MEAN CORPUSCULAR HGB CONC 30.6 g/dl (32.0-37.0); MEAN CORPUSCULAR VOLUME 90.6 fl (82.0-101.0); MEAN PLATELET VOLUME 10.9 fl (7.4-10.4); MONOCYTE # 1.7 10^3/ul (0.3-0.9); MONOCYTES % 7.8 % (0.0-11.0); NEUTROPHIL # 17.5 10^3/ul (1.6-7.5); NEUTROPHILS % 80.5 % (39.0-77.0); PLATELET COUNT 226 10^3/UL (140-415); RED BLOOD COUNT 3.42 10^6/ul (4.20-5.40); RED CELL DISTRIBUTION WIDTH 17.8 % (11.5-14.5); WHITE BLOOD COUNT 21.8 10^3/ul (4.8-10.8)
[2016-12-08 05:53] LABS: ALBUMIN 2.6 g/dl (3.3-4.9); ALBUMIN/GLOBULIN RATIO 0.92; CALCIUM 8.3 mg/dl (8.4-10.2); CREATININE 1.42 mg/dl (0.44-1.00); POTASSIUM 4.4 mmol/L (3.5-5.1); TOTAL PROTEIN 5.4 g/dl (6.1-8.1)
[2016-12-08 07:39] VITALS: BP 100/46; RESP 19
[2016-12-08] MEDS: L ACIDOPHIL/B LACTIS/B LONGUM CAPSULE PEG SCH ×3 (08:19→23:36)
[2016-12-08] MEDS: CALCIUM CARBONATE 500 MG CHEW TAB PEG SCH ×3 (08:19→21:37)
[2016-12-08] MEDS: ESCITALOPRAM 10 MG TAB GTB SCH (08:19)
[2016-12-08] MEDS: PANTOPRAZOLE 40 MG INJ IV SCH (08:19)
[2016-12-08] MEDS: DORZOLAMIDE/TIMOLOL 10 ML OPH BOTH EYES SCH ×2 (08:20→21:39)
[2016-12-08] MEDS: ARTIFICIAL TEARS 15 ML OPH BOTH EYES SCH ×4 (08:20→21:40)
[2016-12-08] MEDS: INSULIN GLARGINE [LANtus] 3 ML PEN SC SCH (08:20)
[2016-12-08] MEDS: METOPROLOL 25 MG TAB GTB SCH ×2 (09:00→21:39)
--- NOTE | 2016-12-08 14:26 | CONS ---
Date/Time of Note Date/Time of Note DATE: 12/08/16 TIME: 14:25 Assessment/Plan Assessment/Plan Chief Complaint/Hosp Course SUBJECTIVE: No acute changes, no fevers INDWELLINGS: Right chest Perm-A-Cath, left upper extremity PICC line. MICROBIOLOGY: Blood culture growing E. coli resistant to Ancef, susceptible to all other antibiotics. Urine culture growing E. coli, enterococcus species, Kleb ESBL. ANTIMICROBIALS: Vanco, Amikacin PHYSICAL EXAMINATION: GENERAL: This is a well-developed, chronically ill-appearing, elderly woman who is in no distress. HEENT: Head atraumatic, normocephalic. Sclerae anicteric. Buccal mucosa dry. NECK: Supple, trachea midline. CHEST: Rise symmetrical. Breath sounds diminished to bases. HEART: S1, S2. ABDOMEN: Soft, bowel tones present. EXTREMITIES: Bilateral toes gangrenous changes. ASSESSMENT: 1. Sepsis with persistent leukocytosis. 2. Bacteremia, likely secondary to urinary tract infection, rule out line sepsis. 3. polymicrobial urinary tract infection. 4. Status post pneumonia. 5. End-stage renal disease, hemodialysis dependent. 6. 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 7. Dysphagia. 8. History of cardiopulmonary arrest with encephalopathy. PLAN: Clinically stable. Blood culture repeated from hemodialysis negative, on Amikacin to cover ESBL and Vanco for Enterococcal coverage, will order bld cx from PICC [facility] staff Problems: Consultation Date/Type/Reason Admit Date/Time Sep 20, 2016 at 19:21 Initial Consult Date 09/23/16 Type of Consultation: ID Referring Provider: [facility]DR[facility] ROBISON [facility], [facility] Exam/Review of Systems Vital Signs Vitals Vital Signs Date Time Temp Pulse Resp B/P Pulse Ox O2 Delivery O2 Flow Rate FiO2 12/08/16 09:21 93 21 12/08/16 08:59 87 18 12/08/16 07:39 98.0 100/46 12/07/16 10:45 Room Air Intake and Output 12/07/16 12/07/16 12/08/16 15:00 23:00 07:00 Intake Total 500 ml 1022 ml 340 ml Output Total 2500 ml Balance -2000 ml 1022 ml 340 ml Results Result Diagram: 12/08/16 0441 12/08/16 0441 Results 24 hrs Laboratory Tests Test 12/07/16 15:30 6/3/17 16:33 12/07/16 21:15 12/07/16 22:30 White Blood Count 26.3 #H Red Blood Count 3.62 #L Hemoglobin 10.4 #L Hematocrit 32.8 #L Mean Corpuscular Volume 90.6 Mean Corpuscular Hemoglobin 28.7 L Mean Corpuscular Hemoglobin Concent 31.7 L Red Cell Distribution Width 17.5 H Platelet Count 200 Mean Platelet Volume 10.1 Neutrophils % 84.9 H Lymphocytes % 6.0 L Monocytes % 6.7 Eosinophils % 0.3 Basophils % 0.2 Nucleated Red Blood Cells % 0.1 H Neutrophils # 22.3 H Lymphocytes # 1.6 Monocytes # 1.8 H Eosinophils # 0.1 Basophils # 0.1 Nucleated Red Blood Cells # 0.0 Sodium Level 141 Potassium Level 4.2 Chloride Level 103 Carbon Dioxide Level 30 Anion Gap 12 Blood Urea Nitrogen 34 #H Creatinine 1.27 H Glucose Level 128 # Calcium Level 8.5 Bedside Glucose 124 141 Stool Occult Blood POSITIVE Test 12/08/16 00:40 12/08/16 04:41 12/08/16 05:02 12/08/16 05:17 Bedside Glucose 122 69 L 140 White Blood Count 21.8 H Red Blood Count 3.42 L Hemoglobin 9.5 L Hematocrit 31.0 L Mean Corpuscular Volume 90.6 Mean Corpuscular Hemoglobin 27.8 L Mean Corpuscular Hemoglobin Concent 30.6 L Red Cell Distribution Width 17.8 H Platelet Count 226 Mean Platelet Volume 10.9 H Neutrophils % 80.5 H Lymphocytes % 9.6 L Monocytes % 7.8 Eosinophils % 0.4 Basophils % 0.2 Nucleated Red Blood Cells % 0.0 Neutrophils # 17.5 H Lymphocytes # 2.1 Monocytes # 1.7 H Eosinophils # 0.1 Basophils # 0.0 Nucleated Red Blood Cells # 0.0 Sodium Level 142 Potassium Level 4.4 Chloride Level 104 Carbon Dioxide Level 26 Anion Gap 16 Blood Urea Nitrogen 46 #H Creatinine 1.42 H Glucose Level 64 #L Calcium Level 8.3 L Total Bilirubin 0.0 L Direct Bilirubin 0.00 Indirect Bilirubin 0.0 Aspartate Amino Transf (AST/SGOT) 54 H Alanine Aminotransferase (ALT/SGPT) 44 Alkaline Phosphatase 316 H Total Protein 5.4 L Albumin 2.6 L Globulin 2.80 Albumin/Globulin Ratio 0.92 Test 12/08/16 05:27 12/08/16 08:17 12/08/16 12:43 12/08/16 12:55 Bedside Glucose 125 106 99 Lab Scanned Report REFERENCE LAB Medications Medications Current Medications Acetaminophen (Tylenol Liquid) 650 mg Q4H PRN NGT PAIN AND OR ELEVATED TEMP Last administered on 11/09/16 11:10; Admin Dose 650 MG; Start 09/21/16 at 02:00 Pantoprazole (Protonix Iv) 40 mg AM IV Last administered on 12/08/16 08:19; Admin Dose 40 MG; Start 09/26/16 at 09:00 Epoetin Raj (Epogen (Esrd)) 10,000 units TuThSa@17 SC Last administered on 12/07 17:27; Admin Dose 10,000 UNITS; Start 09/26/16 at 17:00 IV Flush (NS 10 ml) 10 ml PRN PRN IV IV PROTOCOL Last administered on 12/06/16 21:06; Admin Dose 10 ML; Start 09/26/16 at 17:30 Lactulose (Enulose) 20 gm BID PRN PO CONSTIPATION Last administered on 05:34; Admin Dose 20 GM; Start 10/23/16 at 10:30 Amylase/Lipase/ Protease (CREON (12k-38k-60k)) 3 cap Q6 NGT Last administered on 12/08/16 05:20; Admin Dose 3 CAP; Start 10/29/16 at 13:00 Latanoprost (Xalatan) 1 drop HS BOTH EYES Last administered on 12/07/16 21:16; Admin Dose 1 DROP; Start 10/31/16 at 21:00 Dorzolamide/ Timolol (Cosopt) 1 drop BID BOTH EYES Last administered on 08:20; Admin Dose 1 DROP; Start 10/31/16 at 21:00 Glucagon (Glucagen) 1 mg Q15M PRN IM DECREASED GLUCOSE; Start 11/03/16 at 18:00 Ondansetron HCl (Zofran Inj) 4 mg Q4H PRN IV NAUSEA AND/OR VOMITING Last administered on 12/01/16 15:04; Admin Dose 4 MG; Start 11/04/16 at 23:00 Eye Lubricant (Artificial Tears Oph) 2 drop QID BOTH EYES Last administered on 12/08/16 12:40; Admin Dose 2 DROP; Start 11/07/16 at 09:00 Morphine Sulfate (morphine) 1 mg Q3H PRN IV pain Last administered on 11:49; Admin Dose 1 MG; Start 11/10/16 at 08:00 Miscellaneous Information 1 ea NOTE XX ; Start 11/14/16 at 10:00 Glucose (Glutose) 15 gm Q15M PRN PO DECREASED GLUCOSE; Start 11/14/16 at 10:00 Glucose (Glutose) 22.5 gm Q15M PRN PO DECREASED GLUCOSE; Start 11/14/16 at 10: 00 Dextrose (D50w Syringe) 25 ml Q15M PRN IV DECREASED GLUCOSE Last administered on 12/08/16 05:08; Admin Dose 25 ML; Start 11/14/16 at 10:00 Dextrose (D50w Syringe) 50 ml Q15M PRN IV DECREASED GLUCOSE Last administered on 12/07/16 05:29; Admin Dose 50 ML; Start 11/14/16 at 10:00 Glucose (Glutose) 15 gm Q15M PRN BUCCAL DECREASED GLUCOSE; Start 11/14/16 at 10 :00 Escitalopram Oxalate (Lexapro) 10 mg DAILY GTB Last administered on 12/08/16 08 :19; Admin Dose 10 MG; Start 11/16/16 at 12:30 Lactobacillus Acidophilus (Florajen3 Capsule) 1 each TID PEG Last administered on 12/08/16 12:39; Admin Dose 1 EACH; Start 11/23/16 at 21:00 Calcium Carbonate (Tums) 500 mg TID PEG Last administered on 12/08/16 12:39; Admin Dose 500 MG; Start 11/23/16 at 21:00 Metoprolol Tartrate (Lopressor) 25 mg BID GTB Last administered on 12/07/16 13: 23; Admin Dose 25 MG; Start 11/23/16 at 21:00 Insulin Aspart (Novolog Insulin Pen) (Adult SC Insulin - Mild Algorithm)... Q4 SC Last administered on 12/06/16 21:11; Admin Dose 1 UNIT; Start 12/02/16 at 01 :00 Metoclopramide HCl (Reglan) 5 mg Q6 PEG Last administered on 12/08/16 12:39; Admin Dose 5 MG; Start 12/03/16 at 01:00 Amikacin Sulfate (Amikacin Iv Per Pharmacy) AMIKACIN PER PHARMACY NOTE XX ; Start 12/06/16 at 10:30 Aspirin (Aspirin) 81 mg MONWEDFRI GTB ; Start 12/09/16 at 09:00 Clopidogrel Bisulfate (plaVIX) 75 mg MONWEDFRI GTB ; Start 12/09/16 at 09:00 Insulin Glargine (Lantus) 36 unit DAILY@08 SC Last administered on 12/08/16 08: 20; Admin Dose 36 UNIT; Start 12/07/16 at 08:00 Miscellaneous Information (*Rx Drug Level Order Reminder*) VANCOMYCIN RANDOM LEVEL IN AM ONCE ONCE XX ; Start 12/09/16 at 05:00; Stop 12/09/16 at 05:01 ROSALINA SIMS NP Dec 08, 2016 14:26
--- NOTE | 2016-12-08 18:17 | CONS ---
Date/Time of Note Date/Time of Note DATE: 12/08/16 TIME: 18:15 Assessment/Plan Assessment/Plan Additional Assessment/Plan 1. Acute Renal Failure due to ATN . She is now on maintenance hemodialysis . s/p hd yesterday and next hd friday 2. ALOC , she continues to be very weak and lethargic . But overall better . She is making progress with PT . 3-. CHF , improving with hd 4-. anemia , fu per gi. some rectal bleeding per pt 5-. peripheral vascular disease .gangrene of toes of both feet .no change 6-. respiratory failure , pulmonary function has improved . 7 dysphagia , she has a PEG . 8. DM , meds adjusted 9-ecoli bacteremia: on abx and id following. prognosis very gaurded Consultation Date/Type/Reason Admit Date/Time Sep 20, 2016 at 19:21 Initial Consult Date 10/22/16 Type of Consultation: ID Reason for Consultation no events. no complaints Referring Provider: ZANDRA ROBISON MD, [facility] Exam/Review of Systems Vital Signs Vitals Vital Signs Date Time Temp Pulse Resp B/P Pulse Ox O2 Delivery O2 Flow Rate FiO2 12/08/16 14:39 90 20 96 21 12/08/16 07:39 98.0 100/46 12/07/16 10:45 Room Air Intake and Output 12/07/16 12/07/16 12/08/16 15:00 23:00 07:00 Intake Total 500 ml 1022 ml 340 ml Output Total 2500 ml Balance -2000 ml 1022 ml 340 ml Exam Constitutional: alert, frail, oriented Psych: no complaints Head: normocephalic Eyes: nl conjunctiva Neck: non-tender, supple Respiratory: clear to auscultation, normal air movement Cardiovascular: edema, nl pulses, regular rate and rhythm Gastrointestinal: non-tender, soft Results Result Diagram: 12/08/16 04412/08/16440 Results 24 hrs Laboratory Tests Test 12/07/16 21:15 12/07/16 22:30 12/08/16 00:40 12/08/16 04:41 Bedside Glucose 141 122 Stool Occult Blood POSITIVE White Blood Count 21.8 H Red Blood Count 3.42 L Hemoglobin 9.5 L Hematocrit 31.0 L Mean Corpuscular Volume 90.6 Mean Corpuscular Hemoglobin 27.8 L Mean Corpuscular Hemoglobin Concent 30.6 L Red Cell Distribution Width 17.8 H Platelet Count 226 Mean Platelet Volume 10.9 H Neutrophils % 80.5 H Lymphocytes % 9.6 L Monocytes % 7.8 Eosinophils % 0.4 Basophils % 0.2 Nucleated Red Blood Cells % 0.0 Neutrophils # 17.5 H Lymphocytes # 2.1 Monocytes # 1.7 H Eosinophils # 0.1 Basophils # 0.0 Nucleated Red Blood Cells # 0.0 Sodium Level 142 Potassium Level 4.4 Chloride Level 104 Carbon Dioxide Level 26 Anion Gap 16 Blood Urea Nitrogen 46 #H Creatinine 1.42 H Glucose Level 64 #L Calcium Level 8.3 L Total Bilirubin 0.0 L Direct Bilirubin 0.00 Indirect Bilirubin 0.0 Aspartate Amino Transf (AST/SGOT) 54 H Alanine Aminotransferase (ALT/SGPT) 44 Alkaline Phosphatase 316 H Total Protein 5.4 L Albumin 2.6 L Globulin 2.80 Albumin/Globulin Ratio 0.92 Test 12/08/16 05:02 12/08/16 05:17 12/08/16 05:27 12/08/16 08:17 Bedside Glucose 69 L 140 125 106 Test 12/08/16 12:43 12/08/16 12:55 12/08/16 17:46 Bedside Glucose 99 85 Lab Scanned Report REFERENCE LAB Medications Medications Current Medications Acetaminophen (Tylenol Liquid) 650 mg Q4H PRN NGT PAIN AND OR ELEVATED TEMP Last administered on 11/09/16 11:10; Admin Dose 650 MG; Start 09/21/16 at 02:00 Pantoprazole (Protonix Iv) 40 mg AM IV Last administered on 12/08/16 08:19; Admin Dose 40 MG; Start 09/26/16 at 09:00 Epoetin Raj (Epogen (Esrd)) 10,000 units TuThSa@17 SC Last administered on 12/07 17:27; Admin Dose 10,000 UNITS; Start 09/26/16 at 17:00 IV Flush (NS 10 ml) 10 ml PRN PRN IV IV PROTOCOL Last administered on 12/06/16 21:06; Admin Dose 10 ML; Start 09/26/16 at 17:30 Lactulose (Enulose) 20 gm BID PRN PO CONSTIPATION Last administered on 05:34; Admin Dose 20 GM; Start 10/23/16 at 10:30 Amylase/Lipase/ Protease (CREON (19d-67s-60l)) 3 cap Q6 NGT Last administered on 12/08/16 05:20; Admin Dose 3 CAP; Start 10/29/16 at 13:00 Latanoprost (Xalatan) 1 drop HS BOTH EYES Last administered on 12/07/16 21:16; Admin Dose 1 DROP; Start 10/31/16 at 21:00 Dorzolamide/ Timolol (Cosopt) 1 drop BID BOTH EYES Last administered on 08:20; Admin Dose 1 DROP; Start 10/31/16 at 21:00 Glucagon (Glucagen) 1 mg Q15M PRN IM DECREASED GLUCOSE; Start 11/03/16 at 18:00 Ondansetron HCl (Zofran Inj) 4 mg Q4H PRN IV NAUSEA AND/OR VOMITING Last administered on 12/01/16 15:04; Admin Dose 4 MG; Start 11/04/16 at 23:00 Eye Lubricant (Artificial Tears Oph) 2 drop QID BOTH EYES Last administered on 12/08/16 17:48; Admin Dose 2 DROP; Start 11/07/16 at 09:00 Morphine Sulfate (morphine) 1 mg Q3H PRN IV pain Last administered on 11:49; Admin Dose 1 MG; Start 11/10/16 at 08:00 Miscellaneous Information 1 ea NOTE XX ; Start 11/14/16 at 10:00 Glucose (Glutose) 15 gm Q15M PRN PO DECREASED GLUCOSE; Start 11/14/16 at 10:00 Glucose (Glutose) 22.5 gm Q15M PRN PO DECREASED GLUCOSE; Start 11/14/16 at 10: 00 Dextrose (D50w Syringe) 25 ml Q15M PRN IV DECREASED GLUCOSE Last administered on 12/08/16 05:08; Admin Dose 25 ML; Start 11/14/16 at 10:00 Dextrose (D50w Syringe) 50 ml Q15M PRN IV DECREASED GLUCOSE Last administered on 12/07/16 05:29; Admin Dose 50 ML; Start 11/14/16 at 10:00 Glucose (Glutose) 15 gm Q15M PRN BUCCAL DECREASED GLUCOSE; Start 11/14/16 at 10 :00 Escitalopram Oxalate (Lexapro) 10 mg DAILY GTB Last administered on 12/08/16 08 :19; Admin Dose 10 MG; Start 11/16/16 at 12:30 Lactobacillus Acidophilus (Florajen3 Capsule) 1 each TID PEG Last administered on 12/08/16 12:39; Admin Dose 1 EACH; Start 11/23/16 at 21:00 Calcium Carbonate (Tums) 500 mg TID PEG Last administered on 12/08/16 12:39; Admin Dose 500 MG; Start 11/23/16 at 21:00 Metoprolol Tartrate (Lopressor) 25 mg BID GTB Last administered on 12/07/16 13: 23; Admin Dose 25 MG; Start 11/23/16 at 21:00 Insulin Aspart (Novolog Insulin Pen) (Adult SC Insulin - Mild Algorithm)... Q4 SC Last administered on 12/06/16 21:11; Admin Dose 1 UNIT; Start 12/02/16 at 01 :00 Metoclopramide HCl (Reglan) 5 mg Q6 PEG Last administered on 12/08/16 17:47; Admin Dose 5 MG; Start 12/03/16 at 01:00 Amikacin Sulfate (Amikacin Iv Per Pharmacy) AMIKACIN PER PHARMACY NOTE XX ; Start 12/06/16 at 10:30 Aspirin (Aspirin) 81 mg MONWEDFRI GTB ; Start 12/09/16 at 09:00 Clopidogrel Bisulfate (plaVIX) 75 mg MONWEDFRI GTB ; Start 12/09/16 at 09:00 Insulin Glargine (Lantus) 36 unit DAILY@08 SC Last administered on 12/08/16 08: 20; Admin Dose 36 UNIT; Start 12/07/16 at 08:00 Miscellaneous Information (*Rx Drug Level Order Reminder*) VANCOMYCIN RANDOM LEVEL IN AM ONCE ONCE XX ; Start 12/09/16 at 05:00; Stop 12/09/16 at 05:01 LOPEZ ATKINS MD Dec 08, 2016 18:17
[2016-12-08 19:33] VITALS: BP 99/52; RESP 18
--- NOTE | 2016-12-08 20:00 | PN ---
DATE: 12/08/2016 SUBJECTIVE: Patient awake, alert, speech very softly with minimal response. She is on renal dialys is because of renal failure due to acute tubular necrosis. She has gangrene of the right great toe and slight gangrene of the right second and third toes on the volar surface as well. She has gangre ne of the left second toe. OBJECTIVE: CHEST: Clear to A and P. HEART: Normal sinus rhythm. ABDOMEN: Liver, kidneys, spleen are not palpable. Bowel sounds are normal. No intraabdominal mass es or bruits. EXTREMITIES: Ankles: No edema of the ankles bilaterally. Blood cultures growing E. coli resistant to Ancef, susceptible to all other antibiotics. Urine cult ure growing E. coli, Enterococcus species, and Klebsiella. She is on vancomycin and amikacin. She is in acute renal failure on hemodialysis. VITAL SIGNS: She is afebrile, temperature is 98. Blood pressure is 100/46, pulse is 90, respirator y rate is 20. INTAKE AND OUTPUT: 1862 intake, 500 output. LABORATORY DATA: White blood count 21,800, hemoglobin 9.5, hematocrit 30.1%, platelet count is norm al, sugar is 140. Sodium is 142, potassium is 4.4, chloride is 104, carbon dioxide is 26, BUN is 46 , creatinine is 1.42, glucose was 64. Vancomycin level random 21.4. Parathyroid hormone intact 14, calcium 8.7. Blood culture negative. Dictated By: LEOBARDO KENYON/JERROD Conf#: [id number] DID#: [id number]
[2016-12-08 21:30] VITALS: BP 104/50; PULSE 97; RESP 20
[2016-12-08] MEDS: LATANOPROST 0.005% 2.5 ML OPH BOTH EYES SCH (21:39)
[2016-12-08 23:47] VITALS: BP 103/52; PULSE 91
[2016-12-09] MEDS: INSULIN ASPART [NOVOLOG] 3 ML PEN SC SCH ×6 (01:00→21:00)
[2016-12-09] MEDS: IPRATROPIUM (NEB) 0.5 MG/2.5 ML AMP HHN SCH ×4 (01:50→19:51)
[2016-12-09] MEDS: LEVALBUTEROL (NEB) 1.25 MG/0.5 ML AMP HHN SCH ×4 (01:50→19:51)
[2016-12-09] MEDS: CREON (12k-38k-60k) 1 CAP NGT SCH ×3 (05:36→17:43)
[2016-12-09] MEDS: METOCLOPRAMIDE 10 MG TAB PEG SCH ×3 (05:36→17:43)
[2016-12-09] MEDS: DEXTROSE 50% 50 ML SYRINGE IV PRN ×2 (05:37→17:59)
[2016-12-09 05:40] LABS: ADD SCAN DIFF NO
[2016-12-09 05:51] LABS: ABNORMAL IP MESSAGE 1; BASOPHILS % 0.1 % (0.0-2.0); EOSINOPHILS # 0.1 10^3/ul (0.0-0.5); EOSINOPHILS % 0.6 % (0.0-7.0); HEMATOCRIT 29.3 % (37.0-47.0); HEMOGLOBIN 8.6 g/dl (12.0-16.0); LYMPHOCYTES # 2.3 10^3/ul (0.8-2.9); LYMPHOCYTES % 10.2 % (15.0-51.0); MEAN CORPUSCULAR HEMOGLOBIN 26.7 pg (29.0-33.0); MEAN CORPUSCULAR HGB CONC 29.4 g/dl (32.0-37.0); MEAN PLATELET VOLUME 10.3 fl (7.4-10.4); MONOCYTE # 1.8 10^3/ul (0.3-0.9); MONOCYTES % 8.2 % (0.0-11.0); NEUTROPHIL # 17.6 10^3/ul (1.6-7.5); NEUTROPHILS % 79.5 % (39.0-77.0); PLATELET COUNT 270 10^3/UL (140-415); RED BLOOD COUNT 3.22 10^6/ul (4.20-5.40); RED CELL DISTRIBUTION WIDTH 17.7 % (11.5-14.5); WHITE BLOOD COUNT 22.2 10^3/ul (4.8-10.8)
[2016-12-09 05:57] LABS: INR 1.09; PROTIME 14.1 Sec (12.2-14.2); PT RATIO 1.1
[2016-12-09 06:00] LABS: ALBUMIN 2.7 g/dl (3.3-4.9); ALBUMIN/GLOBULIN RATIO 0.87; CALCIUM 8.1 mg/dl (8.4-10.2); CREATININE 1.81 mg/dl (0.44-1.00); POTASSIUM 4.4 mmol/L (3.5-5.1); TOTAL PROTEIN 5.8 g/dl (6.1-8.1)
[2016-12-09 08:36] VITALS: BP 111/52; RESP 18
[2016-12-09] MEDS: L ACIDOPHIL/B LACTIS/B LONGUM CAPSULE PEG SCH ×3 (08:56→21:09)
[2016-12-09] MEDS: ESCITALOPRAM 10 MG TAB GTB SCH (08:56)
[2016-12-09] MEDS: CALCIUM CARBONATE 500 MG CHEW TAB PEG SCH ×3 (08:56→21:09)
[2016-12-09] MEDS: METOPROLOL 25 MG TAB GTB SCH ×2 (08:57→21:10)
[2016-12-09] MEDS: DORZOLAMIDE/TIMOLOL 10 ML OPH BOTH EYES SCH ×2 (08:58→21:08)
[2016-12-09] MEDS: INSULIN GLARGINE [LANtus] 3 ML PEN SC SCH (08:58)
[2016-12-09] MEDS: ARTIFICIAL TEARS 15 ML OPH BOTH EYES SCH ×4 (08:58→21:08)
[2016-12-09] MEDS ORDERED: ASPIRIN 81 MG TAB GTB SCH (09:00)
[2016-12-09] MEDS ORDERED: CLOPIDOGREL 75 MG TAB GTB SCH (09:00)
[2016-12-09] MEDS: PANTOPRAZOLE 40 MG INJ IV SCH (09:07)
--- NOTE | 2016-12-09 09:42 | CONS ---
Date/Time of Note Date/Time of Note DATE: 12/09/16 TIME: 09:38 Assessment/Plan Assessment/Plan Chief Complaint/Hosp Course 1. Acute Renal Failure due to ATN . She is now on maintenance hemodialysis . She has less evidence of volume overload . Dialysis has been ordered for tomorrow. She is currently on a Friday schedule. 2. ALOC , she continues to be very weak and lethargic . But overall better . She is making progress with PT . 3. liver enzyme elevation has resolved.. 4. CHF , her chest x-ray shows some clearing, she is having fluid removed with dialysis and is overall better with fluid balance. 5. hypocalcemia/hypoalbuminemia , calcium is higher 6. anemia , She has no active GI bleeding now. 7. peripheral vascular disease .gangrene of toes of both feet . 8. respiratory failure , pulmonary function has improved . 9 dysphagia , she has a PEG . 10. discharge planning . She can be discharged to home or SNF , with outpatient dialysis . 11. DM , blood sugars are high again today , will increase Lantus to 30 units a day . 12. Leukocytosis , WBC is down to 22,000 today, she is growing e coli in the blood , from urine . Antibiotics have been started and she is being followed by infectious disease ent consultant. They are managing her antibiotics. . Problems: Consultation Date/Type/Reason Admit Date/Time Sep 20, 2016 at 19:21 Initial Consult Date 09/23/16 Type of Consultation: ID Referring Provider: ZANDRA ROBISON MD, [facility] 24 HR Interval Summary Free Text/Dictation She is awake. She has no complaints. She is weak. Constitutional: no complaints Exam/Review of Systems Vital Signs Vitals Vital Signs Date Time Temp Pulse Resp B/P Pulse Ox O2 Delivery O2 Flow Rate FiO2 12/09/16 08:36 98.8 93 18 111/52 94 12/09/16 07:51 21 12/08/16 21:30 Room Air Intake and Output 12/08/16 12/08/16 12/09/16 15:00 23:00 07:00 Intake Total 970 ml 420 ml Balance 970 ml 420 ml Exam Constitutional: alert, frail, obese, oriented Respiratory: clear to auscultation, normal air movement Cardiovascular: edema, regular rate and rhythm Gastrointestinal: soft Musculoskeletal: nl extremities to inspection Results Result Diagram: 12/09/16 0435 12/09/16 0438 Results 24 hrs Laboratory Tests Test 12/08/16 12:43 12/08/16 12:55 12/08/16 17:46 12/08/16 21:34 Bedside Glucose 99 85 67 L Lab Scanned Report REFERENCE LAB Test 12/08/16 22:05 12/08/16 22:40 12/09/16 00:43 12/09/16 04:35 Bedside Glucose 123 117 105 White Blood Count 22.2 H Red Blood Count 3.22 L Hemoglobin 8.6 L Hematocrit 29.3 L Mean Corpuscular Volume 91.0 Mean Corpuscular Hemoglobin 26.7 L Mean Corpuscular Hemoglobin Concent 29.4 L Red Cell Distribution Width 17.7 H Platelet Count 270 Mean Platelet Volume 10.3 Neutrophils % 79.5 H Lymphocytes % 10.2 L Monocytes % 8.2 Eosinophils % 0.6 Basophils % 0.1 Nucleated Red Blood Cells % 0.0 Neutrophils # 17.6 H Lymphocytes # 2.3 Monocytes # 1.8 H Eosinophils # 0.1 Basophils # 0.0 Nucleated Red Blood Cells # 0.0 Test 12/09/16 04:38 12/09/16 05:33 12/09/16 05:58 12/09/16 08:56 Prothrombin Time 14.1 Prothrombin Time Ratio 1.1 INR International Normalized Ratio 1.09 Activated Partial Thromboplast Time 28.0 Sodium Level 138 Potassium Level 4.4 Chloride Level 103 Carbon Dioxide Level 27 Anion Gap 12 Blood Urea Nitrogen 61 H Creatinine 1.81 H Glucose Level 43 #*L Calcium Level 8.1 L Total Bilirubin 0.0 L Direct Bilirubin 0.00 Indirect Bilirubin 0.0 Aspartate Amino Transf (AST/SGOT) 50 H Alanine Aminotransferase (ALT/SGPT) 39 Alkaline Phosphatase 302 H Total Protein 5.8 L Albumin 2.7 L Globulin 3.10 Albumin/Globulin Ratio 0.87 Random Vancomycin Level 15.5 Bedside Glucose 52 L 123 90 Medications Medications Current Medications Acetaminophen (Tylenol Liquid) 650 mg Q4H PRN NGT PAIN AND OR ELEVATED TEMP Last administered on 11/09/16 11:10; Admin Dose 650 MG; Start 09/21/16 at 02:00 Pantoprazole (Protonix Iv) 40 mg AM IV Last administered on 12/09/16 09:07; Admin Dose 40 MG; Start 09/26/16 at 09:00 Epoetin Raj (Epogen (Esrd)) 10,000 units TuThSa@17 SC Last administered on 12/07 17:27; Admin Dose 10,000 UNITS; Start 09/26/16 at 17:00 IV Flush (NS 10 ml) 10 ml PRN PRN IV IV PROTOCOL Last administered on 12/06/16 21:06; Admin Dose 10 ML; Start 09/26/16 at 17:30 Lactulose (Enulose) 20 gm BID PRN PO CONSTIPATION Last administered on 05:34; Admin Dose 20 GM; Start 10/23/16 at 10:30 Amylase/Lipase/ Protease (CREON (12g-98k-60k)) 3 cap Q6 NGT Last administered on 12/09/16 05:36; Admin Dose 3 CAP; Start 10/29/16 at 13:00 Latanoprost (Xalatan) 1 drop HS BOTH EYES Last administered on 12/08/16 21:39; Admin Dose 1 DROP; Start 10/31/16 at 21:00 Dorzolamide/ Timolol (Cosopt) 1 drop BID BOTH EYES Last administered on 08:58; Admin Dose 1 DROP; Start 10/31/16 at 21:00 Glucagon (Glucagen) 1 mg Q15M PRN IM DECREASED GLUCOSE; Start 11/03/16 at 18:00 Ondansetron HCl (Zofran Inj) 4 mg Q4H PRN IV NAUSEA AND/OR VOMITING Last administered on 12/01/16 15:04; Admin Dose 4 MG; Start 11/04/16 at 23:00 Eye Lubricant (Artificial Tears Oph) 2 drop QID BOTH EYES Last administered on 12/09/16 08:58; Admin Dose 2 DROP; Start 11/07/16 at 09:00 Morphine Sulfate (morphine) 1 mg Q3H PRN IV pain Last administered on 11:49; Admin Dose 1 MG; Start 11/10/16 at 08:00 Miscellaneous Information 1 ea NOTE XX ; Start 11/14/16 at 10:00 Glucose (Glutose) 15 gm Q15M PRN PO DECREASED GLUCOSE; Start 11/14/16 at 10:00 Glucose (Glutose) 22.5 gm Q15M PRN PO DECREASED GLUCOSE; Start 11/14/16 at 10: 00 Dextrose (D50w Syringe) 25 ml Q15M PRN IV DECREASED GLUCOSE Last administered on 12/09/16 05:37; Admin Dose 25 ML; Start 11/14/16 at 10:00 Dextrose (D50w Syringe) 50 ml Q15M PRN IV DECREASED GLUCOSE Last administered on 12/07/16 05:29; Admin Dose 50 ML; Start 11/14/16 at 10:00 Glucose (Glutose) 15 gm Q15M PRN BUCCAL DECREASED GLUCOSE; Start 11/14/16 at 10 :00 Escitalopram Oxalate (Lexapro) 10 mg DAILY GTB Last administered on 12/09/16 08 :56; Admin Dose 10 MG; Start 11/16/16 at 12:30 Lactobacillus Acidophilus (Florajen3 Capsule) 1 each TID PEG Last administered on 12/09/16 08:56; Admin Dose 1 EACH; Start 11/23/16 at 21:00 Calcium Carbonate (Tums) 500 mg TID PEG Last administered on 12/09/16 08:56; Admin Dose 500 MG; Start 11/23/16 at 21:00 Metoprolol Tartrate (Lopressor) 25 mg BID GTB Last administered on 12/09/16 08: 57; Admin Dose 25 MG; Start 11/23/16 at 21:00 Insulin Aspart (Novolog Insulin Pen) (Adult SC Insulin - Mild Algorithm)... Q4 SC Last administered on 12/06/16 21:11; Admin Dose 1 UNIT; Start 12/02/16 at 01 :00 Metoclopramide HCl (Reglan) 5 mg Q6 PEG Last administered on 12/09/16 05:36; Admin Dose 5 MG; Start 12/03/16 at 01:00 Amikacin Sulfate (Amikacin Iv Per Pharmacy) AMIKACIN PER PHARMACY NOTE XX ; Start 12/06/16 at 10:30 Aspirin (Aspirin) 81 mg MONWEDFRI GTB ; Start 12/09/16 at 09:00; Status Future Hold Clopidogrel Bisulfate (plaVIX) 75 mg MONWEDFRI GTB ; Start 12/09/16 at 09:00; Status Future Hold Insulin Glargine (Lantus) 34 unit DAILY@08 SC Last administered on 12/09/16t 08: 58; Admin Dose 34 UNIT; Start 12/09/16 at 08:00 DAMIR MARTINEZ MD Dec 09, 2016 09:42
--- NOTE | 2016-12-09 14:23 | PN ---
DATE: 12/09/2016 INFECTIOUS DISEASE PROGRESS NOTE SUBJECTIVE: No acute changes overnight. The patient is lying comfortably in bed. She afebrile. MICROBIOLOGY: Repeat blood cultures growing gram-negative rods on December 08. ANTIMICROBIALS: The patient is on: 1. Vancomycin. 2. Amikacin. INDWELLINGS: Left upper extremity PICC line. PHYSICAL EXAMINATION: GENERAL: This is a chronically ill-appearing, elderly woman who is in no distress. HEENT: Head atraumatic, normocephalic. Sclerae anicteric. Buccal mucosa dry. NECK: Supple, trachea midline. CHEST: Rise symmetrical. Breath sounds diminished to bases. HEART: S1, S2. ABDOMEN: Soft, bowel sounds present. EXTREMITIES: Without cyanosis. ASSESSMENT: 1. Sepsis with persistent bacteremia with a high possibility of line sepsis. 2. Polymicrobial urinary tract infection. 3. End-stage renal disease, hemodialysis dependent. 4. 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 5. Dysphagia. 6. History of cardiopulmonary arrest. PLAN: The patient remains clinically stable. Repeat blood culture still growing gram-negative rods. We will add Invanz to the regimen. Continue other antibiotics. Consider discontinue lines and give the patient a line holiday. Repeat urine culture. Dictated By: ROSALINA SIMS BLOCK OPERATOR for NEOMI LARA/JERROD Conf#: [id number] DID#: [id number] MTDD
[2016-12-09] MEDS ORDERED: ERTAPENEM SODIUM 0.5 GM in SOD CHLORIDE 0.9% 100 ML IVPB SCH (14:30)
[2016-12-09] MEDS: ERTAPENEM SODIUM 0.5 GM in SOD CHLORIDE 0.9% 100 ML IVPB SCH (16:14)
[2016-12-09] MEDS: VANCOMYCIN 1.25 GM in SOD CHLORIDE 0.9% 250 ML IVPB SCH (17:43)
[2016-12-09 20:17] VITALS: BP 118/54; RESP 18
[2016-12-09] MEDS: LATANOPROST 0.005% 2.5 ML OPH BOTH EYES SCH (21:08)
[2016-12-10] VITALS (9 sets, daily range): BP systolic 93–110; BP diastolic 44–99; PULSE 81–91; RESP 20
[2016-12-10] MEDS: METOCLOPRAMIDE 10 MG TAB PEG SCH ×4 (00:16→17:32)
[2016-12-10] MEDS: CREON (12k-38k-60k) 1 CAP NGT SCH ×4 (00:16→17:32)
[2016-12-10] MEDS: INSULIN ASPART [NOVOLOG] 3 ML PEN SC SCH ×6 (01:00→21:00)
[2016-12-10] MEDS: LEVALBUTEROL (NEB) 1.25 MG/0.5 ML AMP HHN SCH ×4 (01:47→20:08)
[2016-12-10] MEDS: IPRATROPIUM (NEB) 0.5 MG/2.5 ML AMP HHN SCH ×4 (01:47→20:08)
[2016-12-10] MEDS: INSULIN GLARGINE [LANtus] 3 ML PEN SC SCH (08:11)
--- NOTE | 2016-12-10 08:13 | CONS ---
Date/Time of Note Date/Time of Note DATE: 12/10/16 TIME: 08:09 Assessment/Plan Assessment/Plan Chief Complaint/Hosp Course 1. Acute Renal Failure due to ATN . She is now on maintenance hemodialysis . She has less evidence of volume overload . Dialysis has been ordered for today . She is currently on a Friday schedule. 2. ALOC , she continues to be very weak and lethargic . But overall better . She is making progress with PT . 3. liver enzyme elevation has resolved.. 4. CHF , her chest x-ray shows some clearing, she is having fluid removed with dialysis and is overall better with fluid balance. 5. hypocalcemia/hypoalbuminemia , calcium is higher 6. anemia , She has no active GI bleeding now. 7. peripheral vascular disease .gangrene of toes of both feet . 8. respiratory failure , pulmonary function has improved . 9 dysphagia , she has a PEG . 10. discharge planning . She can be discharged to home or SNF , with outpatient dialysis . 11. DM , blood sugars are high again today , will increase Lantus to 30 units a day . 12. Leukocytosis , WBC is down to 22,000 today, she is growing e coli in the blood , from urine . Antibiotics have been started and she is being followed by infectious disease clinical documentation consultant. They are managing her antibiotics. 13. Today she complains of some abdominal pain and is tender in the left upper quadrant. I will order an abdominal ultrasound for today. . Problems: Consultation Date/Type/Reason Admit Date/Time Sep 20, 2016 at 19:21 Initial Consult Date 09/23/16 Type of Consultation: ID Referring Provider: Z[facility]DRA ROBISON MD, [facility] HR Interval Summary Free Text/Dictation She is awake and alert. She does have some left upper quadrant abdominal pain.. Exam/Review of Systems Vital Signs Vitals Vital Signs Date Time Temp Pulse Resp B/P Pulse Ox O2 Delivery O2 Flow Rate FiO2 12/10/16 01:48 2.0 12/10/16 01:48 83 18 100 Nasal Cannula 12/09/16 20:17 98.1 118/54 12/09/16 07:51 21 Intake and Output 12/09/16 12/09/16 12/10/16 15:00 23:00 07:00 Intake Total 1320 ml 180 ml Balance 1320 ml 180 ml Exam Constitutional: alert, frail, obese, oriented Head: normocephalic Respiratory: clear to auscultation, normal air movement Cardiovascular: regular rate and rhythm Gastrointestinal: soft, tender Musculoskeletal: nl extremities to inspection Results Result Diagram: 12/09/16 0435 12/09/16 0438 Results 24 hrs Laboratory Tests Test 12/09/16 08:56 12/09/16 13:11 12/09/16 17:49 12/09/16 18:27 Bedside Glucose 90 77 63 L 116 Test 12/09/16 21:06 12/10/16 01:12 12/10/16 04:58 12/10/16 06:41 Bedside Glucose 109 119 121 Lab Scanned Report BLOOD TRANSFUSION Medications Medications Current Medications Acetaminophen (Tylenol Liquid) 650 mg Q4H PRN NGT PAIN AND OR ELEVATED TEMP Last administered on 11/09/16 11:10; Admin Dose 650 MG; Start 09/21/16 at 02:00 Pantoprazole (Protonix Iv) 40 mg AM IV Last administered on 12/09/16 09:07; Admin Dose 40 MG; Start 09/26/16 at 09:00 Epoetin Raj (Epogen (Esrd)) 10,000 units TuThSa@17 SC Last administered on 12/07 17:27; Admin Dose 10,000 UNITS; Start 09/26/16 at 17:00 IV Flush (NS 10 ml) 10 ml PRN PRN IV IV PROTOCOL Last administered on 12/06/16 21:06; Admin Dose 10 ML; Start 09/26/16 at 17:30 Lactulose (Enulose) 20 gm BID PRN PO CONSTIPATION Last administered on 05:34; Admin Dose 20 GM; Start 10/23/16 at 10:30 Amylase/Lipase/ Protease (CREON (12k-38k-60k)) 3 cap Q6 NGT Last administered on 12/10/16 06:16; Admin Dose 3 CAP; Start 10/29/16 at 13:00 Latanoprost (Xalatan) 1 drop HS BOTH EYES Last administered on 12/09/16 21:08; Admin Dose 1 DROP; Start 10/31/16 at 21:00 Dorzolamide/ Timolol (Cosopt) 1 drop BID BOTH EYES Last administered on 21:08; Admin Dose 1 DROP; Start 10/31/16 at 21:00 Glucagon (Glucagen) 1 mg Q15M PRN IM DECREASED GLUCOSE; Start 11/03/16 at 18:00 Ondansetron HCl (Zofran Inj) 4 mg Q4H PRN IV NAUSEA AND/OR VOMITING Last administered on 12/01/16 15:04; Admin Dose 4 MG; Start 11/04/16 at 23:00 Eye Lubricant (Artificial Tears Oph) 2 drop QID BOTH EYES Last administered on 12/09/16 21:08; Admin Dose 2 DROP; Start 11/07/16 at 09:00 Morphine Sulfate (morphine) 1 mg Q3H PRN IV pain Last administered on 11:49; Admin Dose 1 MG; Start 11/10/16 at 08:00 Miscellaneous Information 1 ea NOTE XX ; Start 11/14/16 at 10:00 Glucose (Glutose) 15 gm Q15M PRN PO DECREASED GLUCOSE; Start 11/14/16 at 10:00 Glucose (Glutose) 22.5 gm Q15M PRN PO DECREASED GLUCOSE; Start 11/14/16 at 10: 00 Dextrose (D50w Syringe) 25 ml Q15M PRN IV DECREASED GLUCOSE Last administered on 12/09/16 17:59; Admin Dose 25 ML; Start 11/14/16 at 10:00 Dextrose (D50w Syringe) 50 ml Q15M PRN IV DECREASED GLUCOSE Last administered on 12/07/16 05:29; Admin Dose 50 ML; Start 11/14/16 at 10:00 Glucose (Glutose) 15 gm Q15M PRN BUCCAL DECREASED GLUCOSE; Start 11/14/16 at 10 :00 Escitalopram Oxalate (Lexapro) 10 mg DAILY GTB Last administered on 12/09/16 08 :56; Admin Dose 10 MG; Start 11/16/16 at 12:30 Lactobacillus Acidophilus (Florajen3 Capsule) 1 each TID PEG Last administered on 12/09/16 21:09; Admin Dose 1 EACH; Start 11/23/16 at 21:00 Calcium Carbonate (Tums) 500 mg TID PEG Last administered on 12/09/16 21:09; Admin Dose 500 MG; Start 11/23/16 at 21:00 Metoprolol Tartrate (Lopressor) 25 mg BID GTB Last administered on 12/09/16 21: 10; Admin Dose 25 MG; Start 11/23/16 at 21:00 Insulin Aspart (Novolog Insulin Pen) (Adult SC Insulin - Mild Algorithm)... Q4 SC Last administered on 12/06/16 21:11; Admin Dose 1 UNIT; Start 12/02/16 at 01 :00 Metoclopramide HCl (Reglan) 5 mg Q6 PEG Last administered on 12/10/16 06:16; Admin Dose 5 MG; Start 12/03/16 at 01:00 Amikacin Sulfate (Amikacin Iv Per Pharmacy) AMIKACIN PER PHARMACY NOTE XX ; Start 12/06/16 at 10:30 Aspirin (Aspirin) 81 mg MONWEDFRI GTB ; Start 12/09/16 at 09:00; Status Future Hold Clopidogrel Bisulfate (plaVIX) 75 mg MONWEDFRI GTB ; Start 12/09/16 at 09:00; Status Future Hold Insulin Glargine 34 unit 34 unit DAILY@08 SC Last administered on 12/09/16 08: 58; Admin Dose 34 UNIT; Start 12/09/16 at 08:00 Vancomycin HCl 1.25 gm/Sodium Chloride 250 ml @ 83.333 mls/ hr Q96H IVPB Last administered on 12/09/16 17:43; Admin Dose 83.333 MLS/HR; Start 12/09/16 at 17:00 Ertapenem/Sodium Chloride (Invanz/NS) 100 ml @ 200 mls/hr Q24H IVPB Last administered on 12/09/16 16:14; Admin Dose 200 MLS/HR; Start 12/09/16 at 16:00 DAMIR MARTINEZ MD Dec 10, 2016 08:13
[2016-12-10] MEDS: morphine 2 MG INJ IV PRN (08:16)
[2016-12-10 10:43] LABS: ADD SCAN DIFF NO
[2016-12-10 10:51] LABS: BASOPHILS % 0.2 % (0.0-2.0); EOSINOPHILS # 0.1 10^3/ul (0.0-0.5); EOSINOPHILS % 0.3 % (0.0-7.0); HEMATOCRIT 30.1 % (37.0-47.0); HEMOGLOBIN 9.4 g/dl (12.0-16.0); LYMPHOCYTES # 1.6 10^3/ul (0.8-2.9); LYMPHOCYTES % 8.7 % (15.0-51.0); MEAN CORPUSCULAR HEMOGLOBIN 28.2 pg (29.0-33.0); MEAN CORPUSCULAR HGB CONC 31.2 g/dl (32.0-37.0); MEAN CORPUSCULAR VOLUME 90.4 fl (82.0-101.0); MEAN PLATELET VOLUME 10.2 fl (7.4-10.4); MONOCYTE # 1.1 10^3/ul (0.3-0.9); MONOCYTES % 6.1 % (0.0-11.0); NEUTROPHIL # 15.3 10^3/ul (1.6-7.5); NEUTROPHILS % 83.4 % (39.0-77.0); NUCLEATED RED BLOOD CELLS% 0.1 /100WBC (0.0-0.0); PLATELET COUNT 361 10^3/UL (140-415); RED BLOOD COUNT 3.33 10^6/ul (4.20-5.40); RED CELL DISTRIBUTION WIDTH 17.7 % (11.5-14.5); WHITE BLOOD COUNT 18.3 10^3/ul (4.8-10.8)
[2016-12-10 11:10] LABS: ALBUMIN 2.9 g/dl (3.3-4.9); ALBUMIN/GLOBULIN RATIO 0.9; CALCIUM 8.7 mg/dl (8.4-10.2); CREATININE 2.25 mg/dl (0.44-1.00); POTASSIUM 4.9 mmol/L (3.5-5.1); TOTAL PROTEIN 6.1 g/dl (6.1-8.1)
[2016-12-10] MEDS: CALCIUM CARBONATE 500 MG CHEW TAB PEG SCH ×3 (11:38→21:44)
[2016-12-10] MEDS: L ACIDOPHIL/B LACTIS/B LONGUM CAPSULE PEG SCH ×3 (11:38→21:44)
[2016-12-10] MEDS: ESCITALOPRAM 10 MG TAB GTB SCH (11:38)
[2016-12-10] MEDS: PANTOPRAZOLE 40 MG INJ IV SCH (11:38)
[2016-12-10] MEDS: METOPROLOL 25 MG TAB GTB SCH ×2 (11:39→21:00)
[2016-12-10] MEDS: DORZOLAMIDE/TIMOLOL 10 ML OPH BOTH EYES SCH ×2 (11:39→21:44)
[2016-12-10] MEDS: ARTIFICIAL TEARS 15 ML OPH BOTH EYES SCH ×4 (11:39→21:44)
--- NOTE | 2016-12-10 13:27 | PN ---
Date/Time of Note Date/Time of Note DATE: 12/10/16 TIME: 13:17 Assessment/Plan VTE Prophylaxis VTE Prophylaxis Intervention: other (asa, plavix) Lines/Catheters IV Catheter Type (from Nrsg): PICC Line Central line still needed: No Urinary Cath still in place: No Assessment/Plan Assessment/Plan 1. uti/ high wbc/ on atbx 2. arf/ anemia/ dialysis 3. rld/ pulm edema 4. dm 5. cad/ htn/ pad/ anticoag 6. depression 7. musc weak/ peg feed 8. up lf and pain? ---cont atbx ---per ID ---per renal ---must cont aggressive ot/ pt exercises ---planning transfer to snf by / fri Subjective 24 Hr Interval Summary Free Text/Dictation no interest/ motivation, slight more conversations, c/o up lf abd tender Exam/Review of Systems Vital Signs Vitals Vital Signs Date Time Temp Pulse Resp B/P Pulse Ox O2 Delivery O2 Flow Rate FiO2 12/10/16 09:43 70 20 97 Nasal Cannula 2.0 12/10/16 08:30 97.8 110/56 12/09/16 07:51 21 Intake and Output 12/09/16 12/09/16 12/10/16 15:00 23:00 07:00 Intake Total 1320 ml 180 ml Balance 1320 ml 180 ml Exam obese, in bed, refused to move about ? tender up lf abd? rr dec bs toes blue black+ Results Result Diagram: 12/10/16 1000 12/10/16 1000 Results 24 hrs Laboratory Tests Test 12/09/16 17:49 12/09/16 18:27 12/09/16 21:06 12/10/16 01:12 Bedside Glucose 63 L 116 109 119 Test 12/10/16 04:58 12/10/16 06:41 12/10/16 08:06 12/10/16 10:00 Bedside Glucose 121 114 Lab Scanned Report BLOOD TRANSFUSION White Blood Count 18.3 H Red Blood Count 3.33 L Hemoglobin 9.4 L Hematocrit 30.1 L Mean Corpuscular Volume 90.4 Mean Corpuscular Hemoglobin 28.2 L Mean Corpuscular Hemoglobin Concent 31.2 L Red Cell Distribution Width 17.7 H Platelet Count 361 # Mean Platelet Volume 10.2 Neutrophils % 83.4 H Lymphocytes % 8.7 L Monocytes % 6.1 Eosinophils % 0.3 Basophils % 0.2 Nucleated Red Blood Cells % 0.1 H Neutrophils # 15.3 H Lymphocytes # 1.6 Monocytes # 1.1 H Eosinophils # 0.1 Basophils # 0.0 Nucleated Red Blood Cells # 0.0 Sodium Level 134 L Potassium Level 4.9 Chloride Level 100 Carbon Dioxide Level 22 Anion Gap 17 H Blood Urea Nitrogen 80 H Creatinine 2.25 H Glucose Level 101 # Calcium Level 8.7 Total Bilirubin 0.0 L Direct Bilirubin 0.00 Indirect Bilirubin 0.0 Aspartate Amino Transf (AST/SGOT) 53 H Alanine Aminotransferase (ALT/SGPT) 41 Alkaline Phosphatase 298 H Total Protein 6.1 Albumin 2.9 L Globulin 3.20 Albumin/Globulin Ratio 0.90 Test 12/10/16 12:19 Bedside Glucose 96 Medications Medications Current Medications Acetaminophen (Tylenol Liquid) 650 mg Q4H PRN NGT PAIN AND OR ELEVATED TEMP Last administered on 11/09/16 11:10; Admin Dose 650 MG; Start 09/21/16 at 02:00 Pantoprazole (Protonix Iv) 40 mg AM IV Last administered on 12/10/16 11:38; Admin Dose 40 MG; Start 09/26/16 at 09:00 Epoetin Raj (Epogen (Esrd)) 10,000 units TuThSa@17 SC Last administered on 12/07 17:27; Admin Dose 10,000 UNITS; Start 09/26/16 at 17:00 IV Flush (NS 10 ml) 10 ml PRN PRN IV IV PROTOCOL Last administered on 12/06/16 21:06; Admin Dose 10 ML; Start 09/26/16 at 17:30 Lactulose (Enulose) 20 gm BID PRN PO CONSTIPATION Last administered on 05:34; Admin Dose 20 GM; Start 10/23/16 at 10:30 Amylase/Lipase/ Protease (CREON (12k-38k-60k)) 3 cap Q6 NGT Last administered on 12/10/16 06:16; Admin Dose 3 CAP; Start 10/29/16 at 13:00 Latanoprost (Xalatan) 1 drop HS BOTH EYES Last administered on 12/09/16 21:08; Admin Dose 1 DROP; Start 10/31/16 at 21:00 Dorzolamide/ Timolol (Cosopt) 1 drop BID BOTH EYES Last administered on 11:39; Admin Dose 1 DROP; Start 10/31/16 at 21:00 Glucagon (Glucagen) 1 mg Q15M PRN IM DECREASED GLUCOSE; Start 11/03/16 at 18:00 Ondansetron HCl (Zofran Inj) 4 mg Q4H PRN IV NAUSEA AND/OR VOMITING Last administered on 12/01/16 15:04; Admin Dose 4 MG; Start 11/04/16 at 23:00 Eye Lubricant (Artificial Tears Oph) 2 drop QID BOTH EYES Last administered on 12/10/16 11:39; Admin Dose 2 DROP; Start 11/07/16 at 09:00 Morphine Sulfate (morphine) 1 mg Q3H PRN IV pain Last administered on 12/10/16 08:16; Admin Dose 1 MG; Start 11/10/16 at 08:00 Miscellaneous Information 1 ea NOTE XX ; Start 11/14/16 at 10:00 Glucose (Glutose) 15 gm Q15M PRN PO DECREASED GLUCOSE; Start 11/14/16 at 10:00 Glucose (Glutose) 22.5 gm Q15M PRN PO DECREASED GLUCOSE; Start 11/14/16 at 10: 00 Dextrose (D50w Syringe) 25 ml Q15M PRN IV DECREASED GLUCOSE Last administered on 12/09/16 17:59; Admin Dose 25 ML; Start 11/14/16 at 10:00 Dextrose (D50w Syringe) 50 ml Q15M PRN IV DECREASED GLUCOSE Last administered on 12/07/16 05:29; Admin Dose 50 ML; Start 11/14/16 at 10:00 Glucose (Glutose) 15 gm Q15M PRN BUCCAL DECREASED GLUCOSE; Start 11/14/16 at 10 :00 Escitalopram Oxalate (Lexapro) 10 mg DAILY GTB Last administered on 12/10/16 11 :38; Admin Dose 10 MG; Start 11/16/16 at 12:30 Lactobacillus Acidophilus (Florajen3 Capsule) 1 each TID PEG Last administered on 12/10/16 11:38; Admin Dose 1 EACH; Start 11/23/16 at 21:00 Calcium Carbonate (Tums) 500 mg TID PEG Last administered on 12/10/16 11:38; Admin Dose 500 MG; Start 11/23/16 at 21:00 Metoprolol Tartrate (Lopressor) 25 mg BID GTB Last administered on 12/10/16 11: 39; Admin Dose 25 MG; Start 11/23/16 at 21:00 Insulin Aspart (Novolog Insulin Pen) (Adult SC Insulin - Mild Algorithm)... Q4 SC Last administered on 12/06/16 21:11; Admin Dose 1 UNIT; Start 12/02/16 at 01 :00 Metoclopramide HCl (Reglan) 5 mg Q6 PEG Last administered on 12/10/16 11:38; Admin Dose 5 MG; Start 12/03/16 at 01:00 Amikacin Sulfate (Amikacin Iv Per Pharmacy) AMIKACIN PER PHARMACY NOTE XX ; Start 12/06/16 at 10:30 Aspirin (Aspirin) 81 mg MONWEDFRI GTB ; Start 12/09/16 at 09:00; Status Future Hold Clopidogrel Bisulfate (plaVIX) 75 mg MONWEDFRI GTB ; Start 12/09/16 at 09:00; Status Future Hold Insulin Glargine 34 unit 34 unit DAILY@08 SC Last administered on 12/10/16 08: 11; Admin Dose 34 UNIT; Start 12/09/16 at 08:00 Vancomycin HCl 1.25 gm/Sodium Chloride 250 ml @ 83.333 mls/ hr Q96H IVPB Last administered on 12/09/16 17:43; Admin Dose 83.333 MLS/HR; Start 12/09/16 at 17:00 Ertapenem/Sodium Chloride (Invanz/NS) 100 ml @ 200 mls/hr Q24H IVPB Last administered on 12/09/16 16:14; Admin Dose 200 MLS/HR; Start 12/09/16 at 16:00 SHAMA LOPEZ MD Dec 10, 2016 13:27
--- NOTE | 2016-12-10 13:31 | PN ---
Date/Time of Note Date/Time of Note DATE: 12/09/16 TIME: 12:27 Assessment/Plan VTE Prophylaxis VTE Prophylaxis Intervention: other (asa, plavix) Lines/Catheters IV Catheter Type (from Nrsg): PICC Line Central line still needed: No Urinary Cath still in place: No Assessment/Plan Assessment/Plan 1. high wbc/ on atbx/ uti 2. arf/ anemia/ dialysis 3. rld/ pulm edema 4. dm 5. depression 6. musc weak/ peg feed 7. cad/ htn/ pad/ anticoag ---per ID, cont atbx ---per renal ---increase ins ---inc ot/pt exercises ---find family favorite snf Subjective 24 Hr Interval Summary Free Text/Dictation SHAMA Heart MD Dec 10, 2016 13:31
--- NOTE | 2016-12-10 14:42 | CONS ---
Date/Time of Note Date/Time of Note DATE: 12/10/16 TIME: 14:41 Assessment/Plan Assessment/Plan Chief Complaint/Hosp Course SUBJECTIVE: No acute changes overnight. The patient is lying comfortably in bed. She afebrile. MICROBIOLOGY: Repeat blood cultures growing gram-negative rods on December 08. ANTIMICROBIALS: The patient is on: 1. Vancomycin. 2. Amikacin. 3. Invanz INDWELLINGS: Left upper extremity PICC line. PHYSICAL EXAMINATION: GENERAL: This is a chronically ill-appearing, elderly woman who is in no distress. HEENT: Head atraumatic, normocephalic. Sclerae anicteric. Buccal mucosa dry. NECK: Supple, trachea midline. CHEST: Rise symmetrical. Breath sounds diminished to bases. HEART: S1, S2. ABDOMEN: Soft, bowel sounds present. EXTREMITIES: Without cyanosis. ASSESSMENT: 1. Sepsis with persistent bacteremia with a high possibility of line sepsis. 2. Polymicrobial urinary tract infection. 3. End-stage renal disease, hemodialysis dependent. 4. 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 5. Dysphagia. 6. History of cardiopulmonary arrest. PLAN: The patient remains clinically stable. Repeat blood culture still growing gram-negative rods. Invanz was added to the regimen. Continue antibiotics. Consider discontinue lines and give the patient a line holiday. Pending repeat urine culture. staff Problems: Consultation Date/Type/Reason Admit Date/Time Sep 20, 2016 at 19:21 Initial Consult Date 09/23/16 Type of Consultation: ID Referring Provider: [facility] ROBISON [facility] Exam/Review of Systems Vital Signs Vitals Vital Signs Date Time Temp Pulse Resp B/P Pulse Ox O2 Delivery O2 Flow Rate FiO2 12/10/16 14:30 83 12/10/16 09:43 20 97 Nasal Cannula 2.0 12/10/16 08:30 97.8 110/56 12/09/16 07:51 21 Intake and Output 12/09/16 12/09/16 12/10/16 15:00 23:00 07:00 Intake Total 1320 ml 180 ml Balance 1320 ml 180 ml Results Result Diagram: 12/10/16 1000 12/10/16 1000 Results 24 hrs Laboratory Tests Test 12/09/16 17:49 12/09/16 18:27 12/09/16 21:06 12/10/16 01:12 Bedside Glucose 63 L 116 109 119 Test 12/10/16 04:58 12/10/16 06:41 12/10/16 08:06 12/10/16 10:00 Bedside Glucose 121 114 Lab Scanned Report BLOOD TRANSFUSION White Blood Count 18.3 H Red Blood Count 3.33 L Hemoglobin 9.4 L Hematocrit 30.1 L Mean Corpuscular Volume 90.4 Mean Corpuscular Hemoglobin 28.2 L Mean Corpuscular Hemoglobin Concent 31.2 L Red Cell Distribution Width 17.7 H Platelet Count 361 # Mean Platelet Volume 10.2 Neutrophils % 83.4 H Lymphocytes % 8.7 L Monocytes % 6.1 Eosinophils % 0.3 Basophils % 0.2 Nucleated Red Blood Cells % 0.1 H Neutrophils # 15.3 H Lymphocytes # 1.6 Monocytes # 1.1 H Eosinophils # 0.1 Basophils # 0.0 Nucleated Red Blood Cells # 0.0 Sodium Level 134 L Potassium Level 4.9 Chloride Level 100 Carbon Dioxide Level 22 Anion Gap 17 H Blood Urea Nitrogen 80 H Creatinine 2.25 H Glucose Level 101 # Calcium Level 8.7 Total Bilirubin 0.0 L Direct Bilirubin 0.00 Indirect Bilirubin 0.0 Aspartate Amino Transf (AST/SGOT) 53 H Alanine Aminotransferase (ALT/SGPT) 41 Alkaline Phosphatase 298 H Total Protein 6.1 Albumin 2.9 L Globulin 3.20 Albumin/Globulin Ratio 0.90 Test 12/10/16 12:19 Bedside Glucose 96 Medications Medications Current Medications Acetaminophen (Tylenol Liquid) 650 mg Q4H PRN NGT PAIN AND OR ELEVATED TEMP Last administered on 11/09/16 11:10; Admin Dose 650 MG; Start 09/21/16 at 02:00 Pantoprazole (Protonix Iv) 40 mg AM IV Last administered on 12/10/16 11:38; Admin Dose 40 MG; Start 09/26/16 at 09:00 Epoetin Raj (Epogen (Esrd)) 10,000 units TuThSa@17 SC Last administered on 12/07 17:27; Admin Dose 10,000 UNITS; Start 09/26/16 at 17:00 IV Flush (NS 10 ml) 10 ml PRN PRN IV IV PROTOCOL Last administered on 12/06/16 21:06; Admin Dose 10 ML; Start 09/26/16 at 17:30 Lactulose (Enulose) 20 gm BID PRN PO CONSTIPATION Last administered on 05:34; Admin Dose 20 GM; Start 10/23/16 at 10:30 Amylase/Lipase/ Protease (CREON (45k-40j-24k)) 3 cap Q6 NGT Last administered on 12/10/16 06:16; Admin Dose 3 CAP; Start 10/29/16 at 13:00 Latanoprost (Xalatan) 1 drop HS BOTH EYES Last administered on 12/09/16 21:08; Admin Dose 1 DROP; Start 10/31/16 at 21:00 Dorzolamide/ Timolol (Cosopt) 1 drop BID BOTH EYES Last administered on 11:39; Admin Dose 1 DROP; Start 10/31/16 at 21:00 Glucagon (Glucagen) 1 mg Q15M PRN IM DECREASED GLUCOSE; Start 11/03/16 at 18:00 Ondansetron HCl (Zofran Inj) 4 mg Q4H PRN IV NAUSEA AND/OR VOMITING Last administered on 12/01/16 15:04; Admin Dose 4 MG; Start 11/04/16 at 23:00 Eye Lubricant (Artificial Tears Oph) 2 drop QID BOTH EYES Last administered on 12/10/16 11:39; Admin Dose 2 DROP; Start 11/07/16 at 09:00 Morphine Sulfate (morphine) 1 mg Q3H PRN IV pain Last administered on 12/10/16 08:16; Admin Dose 1 MG; Start 11/10/16 at 08:00 Miscellaneous Information 1 ea NOTE XX ; Start 11/14/16 at 10:00 Glucose (Glutose) 15 gm Q15M PRN PO DECREASED GLUCOSE; Start 11/14/16 at 10:00 Glucose (Glutose) 22.5 gm Q15M PRN PO DECREASED GLUCOSE; Start 11/14/16 at 10: 00 Dextrose (D50w Syringe) 25 ml Q15M PRN IV DECREASED GLUCOSE Last administered on 12/09/16 17:59; Admin Dose 25 ML; Start 11/14/16 at 10:00 Dextrose (D50w Syringe) 50 ml Q15M PRN IV DECREASED GLUCOSE Last administered on 12/07/16 05:29; Admin Dose 50 ML; Start 11/14/16 at 10:00 Glucose (Glutose) 15 gm Q15M PRN BUCCAL DECREASED GLUCOSE; Start 11/14/16 at 10 :00 Escitalopram Oxalate (Lexapro) 10 mg DAILY GTB Last administered on 12/10/16 11 :38; Admin Dose 10 MG; Start 11/16/16 at 12:30 Lactobacillus Acidophilus (Florajen3 Capsule) 1 each TID PEG Last administered on 12/10/16 11:38; Admin Dose 1 EACH; Start 11/23/16 at 21:00 Calcium Carbonate (Tums) 500 mg TID PEG Last administered on 12/10/16 11:38; Admin Dose 500 MG; Start 11/23/16 at 21:00 Metoprolol Tartrate (Lopressor) 25 mg BID GTB Last administered on 12/10/16 11: 39; Admin Dose 25 MG; Start 11/23/16 at 21:00 Insulin Aspart (Novolog Insulin Pen) (Adult SC Insulin - Mild Algorithm)... Q4 SC Last administered on 12/06/16 21:11; Admin Dose 1 UNIT; Start 12/02/16 at 01 :00 Metoclopramide HCl (Reglan) 5 mg Q6 PEG Last administered on 12/10/16 11:38; Admin Dose 5 MG; Start 12/03/16 at 01:00 Amikacin Sulfate (Amikacin Iv Per Pharmacy) AMIKACIN PER PHARMACY NOTE XX ; Start 12/06/16 at 10:30 Aspirin (Aspirin) 81 mg MONWEDFRI GTB ; Start 12/09/16 at 09:00; Status Future Hold Clopidogrel Bisulfate (plaVIX) 75 mg MONWEDFRI GTB ; Start 12/09/16 at 09:00; Status Future Hold Insulin Glargine 34 unit 34 unit DAILY@08 SC Last administered on 12/10/16 08: 11; Admin Dose 34 UNIT; Start 12/09/16 at 08:00 Vancomycin HCl 1.25 gm/Sodium Chloride 250 ml @ 83.333 mls/ hr Q96H IVPB Last administered on 12/09/16 17:43; Admin Dose 83.333 MLS/HR; Start 12/09/16 at 17:00 Ertapenem/Sodium Chloride (Invanz/NS) 100 ml @ 200 mls/hr Q24H IVPB Last administered on 12/09/16t 16:14; Admin Dose 200 MLS/HR; Start 12/09/16 at 16:00 ROSALINA SIMS NP Dec 10, 2016 14:42
[2016-12-10] MEDS: ERTAPENEM SODIUM 0.5 GM in SOD CHLORIDE 0.9% 100 ML IVPB SCH (17:31)
[2016-12-10] MEDS: AMIKACIN IVPB SCH (17:33)
[2016-12-10] MEDS: SOD CHLORIDE 0.9% IVPB SCH (17:33)
[2016-12-10] MEDS: EPOETIN 10000 UNITS/1 ML INJ (ESRD) SC SCH (17:35)
--- NOTE | 2016-12-10 20:19 | RADRPT ---
PROCEDURE: Complete abdominal ultrasound. CLINICAL INDICATION: Abdominal pain TECHNIQUE: Pereira scale and color doppler ultrasound images of the abdomen. COMPARISON: Abdominal ultrasound 09/23/2016 FINDINGS: Pancreas: Visualized portions appear of normal echogenicity, no focal lesions. Liver: Morphology: Normal in size and contour. Echogenicity: Normal. Focal lesions: None. Main portal vein: Patent with hepatopetal flow. Biliary System: Normal appearing gallbladder wall. Large amount of echogenic sludge is present in the gallbladder without definite shadowing gallstones . No intrahepatic biliary dilatation. Common bile duct diameter: 5.3 mm Kidneys: Right length: 12.7 cm. Right renal cortical thickness is preserved. Left length: 11.6 cm. Left renal cortical thickness is preserved. Renal echogenicity is upper limits of normal. No hydronephrosis. No renal calculi. 2.3 cm parapelvic cyst of the left kidney. Spleen: Normal in size, no focal lesions. No free fluid identified. Partially visualized bilateral pleural effusions. Normal caliber of the partially visualized aorta. IMPRESSION: Normal gallbladder without gallstones. Partially visualized bilateral pleural effusions. RPTAT: AADD .Yovanny Pandya MD, Date Time Electronically viewed and signed by .Yovanny Pandya MD, on 12/10/2016 20:18 .B/
[2016-12-10] MEDS: LATANOPROST 0.005% 2.5 ML OPH BOTH EYES SCH (21:44)
[2016-12-11] MEDS: CREON (12k-38k-60k) 1 CAP NGT SCH ×4 (00:45→18:36)
[2016-12-11] MEDS: METOCLOPRAMIDE 10 MG TAB PEG SCH ×4 (00:46→18:36)
[2016-12-11] MEDS: INSULIN ASPART [NOVOLOG] 3 ML PEN SC SCH ×6 (00:48→21:00)
[2016-12-11] MEDS: LEVALBUTEROL (NEB) 1.25 MG/0.5 ML AMP HHN SCH ×4 (01:25→19:15)
[2016-12-11] MEDS: IPRATROPIUM (NEB) 0.5 MG/2.5 ML AMP HHN SCH ×4 (01:25→19:15)
--- NOTE | 2016-12-11 07:38 | RADRPT ---
AMENDMENT: 12/11/2016 7:47:48 AM Wilman Gilliland MD A left-sided PICC line is unchanged in position. PROCEDURE: XR Chest. CLINICAL INDICATION: R/O TB TECHNIQUE: Single frontal view of the chest was obtained. COMPARISON: Chest x-ray from 12/02/2016 FINDINGS: A right-sided dialysis catheter is unchanged in position. The heart and mediastinum are within normal limits. Patchy bibasilar infiltrates versus subsegmental atelectasis are again noted. There is a stable small right pleural effusion. IMPRESSION: Stable patchy bibasilar infiltrates versus subsegmental atelectasis. Stable small right pleural effusion. RPTAT: EE Physician Suzy Date Time Electronically viewed and signed by Jerad Gilliland Physician on 12/11/2016 07:47 /
[2016-12-11 08:47] VITALS: BP_SYST 106; BP_SYST 187; BP_DIAS 53; BP_DIAS 79; RESP 20
[2016-12-11] MEDS: METOPROLOL 25 MG TAB GTB SCH ×2 (09:00→21:37)
--- NOTE | 2016-12-11 09:03 | CONS ---
Date/Time of Note Date/Time of Note DATE: 12/11/16 TIME: 09:00 Assessment/Plan Assessment/Plan Chief Complaint/Hosp Course 1. Acute Renal Failure due to ATN . She is now on maintenance hemodialysis . She has less evidence of volume overload . Dialysis has been ordered for tomorrow . She is currently on a Friday schedule. 2. ALOC , she continues to be very weak and lethargic . But overall better . She is making progress with PT . 3. liver enzyme elevation has resolved.. 4. CHF , her chest x-ray shows some clearing, she is having fluid removed with dialysis and is overall better with fluid balance. 5. hypocalcemia/hypoalbuminemia , calcium is higher 6. anemia , She has no active GI bleeding now. 7. peripheral vascular disease .gangrene of toes of both feet . 8. respiratory failure , pulmonary function has improved . 9 dysphagia , she has a PEG . 10. discharge planning . She can be discharged to home or SNF , with outpatient dialysis . 11. DM , blood sugars are lower 12. Leukocytosis , WBC is down to 18,000 today, she is growing e coli in the blood , from urine . Antibiotics have been started and she is being followed by infectious disease netsuite consultant. They are managing her antibiotics. 13. Today she complains of some abdominal pain and is tender in the left upper quadrant. abdominal ultrasound yesterday was negative . . Problems: Consultation Date/Type/Reason Admit Date/Time Sep 20, 2016 at 19:21 Initial Consult Date 09/23/16 Type of Consultation: ID Referring Provider: [facility]DR[facility] ROBISON [facility] Interval Summary Free Text/Dictation she is awake and alert . she has no complaints . Constitutional: no complaints Exam/Review of Systems Vital Signs Vitals Vital Signs Date Time Temp Pulse Resp B/P Pulse Ox O2 Delivery O2 Flow Rate FiO2 12/11/16 08:47 98.4 95 20 106/53 97 12/11/16 08:23 21 12/10/16 09:43 Nasal Cannula 2.0 Intake and Output 12/10/16 12/10/16 12/11/16 15:00 23:00 07:00 Intake Total 788 ml 840 ml Output Total 2500 ml Balance -1712 ml 840 ml Exam Constitutional: alert, frail, obese, oriented Respiratory: clear to auscultation, diminished breath sounds Cardiovascular: regular rate and rhythm Gastrointestinal: soft, tender Musculoskeletal: nl extremities to inspection Results Result Diagram: 12/10/16 1000 12/10/16 1000 Results 24 hrs Laboratory Tests Test 12/10/16 10:00 12/10/16 12:19 12/10/16 17:24 12/10/16 21:43 White Blood Count 18.3 H Red Blood Count 3.33 L Hemoglobin 9.4 L Hematocrit 30.1 L Mean Corpuscular Volume 90.4 Mean Corpuscular Hemoglobin 28.2 L Mean Corpuscular Hemoglobin Concent 31.2 L Red Cell Distribution Width 17.7 H Platelet Count 361 # Mean Platelet Volume 10.2 Neutrophils % 83.4 H Lymphocytes % 8.7 L Monocytes % 6.1 Eosinophils % 0.3 Basophils % 0.2 Nucleated Red Blood Cells % 0.1 H Neutrophils # 15.3 H Lymphocytes # 1.6 Monocytes # 1.1 H Eosinophils # 0.1 Basophils # 0.0 Nucleated Red Blood Cells # 0.0 Sodium Level 134 L Potassium Level 4.9 Chloride Level 100 Carbon Dioxide Level 22 Anion Gap 17 H Blood Urea Nitrogen 80 H Creatinine 2.25 H Glucose Level 101 # Calcium Level 8.7 Total Bilirubin 0.0 L Direct Bilirubin 0.00 Indirect Bilirubin 0.0 Aspartate Amino Transf (AST/SGOT) 53 H Alanine Aminotransferase (ALT/SGPT) 41 Alkaline Phosphatase 298 H Total Protein 6.1 Albumin 2.9 L Globulin 3.20 Albumin/Globulin Ratio 0.90 Bedside Glucose 96 120 106 Test 12/11/16 00:47 12/11/16 05:30 12/11/16 08:40 Bedside Glucose 76 76 77 Medications Medications Current Medications Acetaminophen (Tylenol Liquid) 650 mg Q4H PRN NGT PAIN AND OR ELEVATED TEMP Last administered on 11/09/16 11:10; Admin Dose 650 MG; Start 09/21/16 at 02:00 Pantoprazole (Protonix Iv) 40 mg AM IV Last administered on 12/10/16 11:38; Admin Dose 40 MG; Start 09/26/16 at 09:00 Epoetin Raj (Epogen (Esrd)) 10,000 units TuThSa@17 SC Last administered on 12/10 17:35; Admin Dose 10,000 UNITS; Start 09/26/16 at 17:00 IV Flush (NS 10 ml) 10 ml PRN PRN IV IV PROTOCOL Last administered on 12/06/16 21:06; Admin Dose 10 ML; Start 09/26/16 at 17:30 Lactulose (Enulose) 20 gm BID PRN PO CONSTIPATION Last administered on 05:34; Admin Dose 20 GM; Start 10/23/16 at 10:30 Amylase/Lipase/ Protease (CREON (05r-31k-60u)) 3 cap Q6 NGT Last administered on 12/11/16 05:31; Admin Dose 3 CAP; Start 10/29/16 at 13:00 Latanoprost (Xalatan) 1 drop HS BOTH EYES Last administered on 12/10/16 21:44; Admin Dose 1 DROP; Start 10/31/16 at 21:00 Dorzolamide/ Timolol (Cosopt) 1 drop BID BOTH EYES Last administered on 21:44; Admin Dose 1 DROP; Start 10/31/16 at 21:00 Glucagon (Glucagen) 1 mg Q15M PRN IM DECREASED GLUCOSE; Start 11/03/16 at 18:00 Ondansetron HCl (Zofran Inj) 4 mg Q4H PRN IV NAUSEA AND/OR VOMITING Last administered on 12/01/16 15:04; Admin Dose 4 MG; Start 11/04/16 at 23:00 Eye Lubricant (Artificial Tears Oph) 2 drop QID BOTH EYES Last administered on 12/10/16 21:44; Admin Dose 2 DROP; Start 11/07/16 at 09:00 Morphine Sulfate (morphine) 1 mg Q3H PRN IV pain Last administered on 12/10/16 08:16; Admin Dose 1 MG; Start 11/10/16 at 08:00 Miscellaneous Information 1 ea NOTE XX ; Start 11/14/16 at 10:00 Glucose (Glutose) 15 gm Q15M PRN PO DECREASED GLUCOSE; Start 11/14/16 at 10:00 Glucose (Glutose) 22.5 gm Q15M PRN PO DECREASED GLUCOSE; Start 11/14/16 at 10: 00 Dextrose (D50w Syringe) 25 ml Q15M PRN IV DECREASED GLUCOSE Last administered on 12/09/16 17:59; Admin Dose 25 ML; Start 11/14/16 at 10:00 Dextrose (D50w Syringe) 50 ml Q15M PRN IV DECREASED GLUCOSE Last administered on 12/07/16 05:29; Admin Dose 50 ML; Start 11/14/16 at 10:00 Glucose (Glutose) 15 gm Q15M PRN BUCCAL DECREASED GLUCOSE; Start 11/14/16 at 10 :00 Escitalopram Oxalate (Lexapro) 10 mg DAILY GTB Last administered on 12/10/16 11 :38; Admin Dose 10 MG; Start 11/16/16 at 12:30 Lactobacillus Acidophilus (Florajen3 Capsule) 1 each TID PEG Last administered on 12/10/16 21:44; Admin Dose 1 EACH; Start 11/23/16 at 21:00 Calcium Carbonate (Tums) 500 mg TID PEG Last administered on 12/10/16 21:44; Admin Dose 500 MG; Start 11/23/16 at 21:00 Metoprolol Tartrate (Lopressor) 25 mg BID GTB Last administered on 12/10/16 11: 39; Admin Dose 25 MG; Start 11/23/16 at 21:00 Insulin Aspart (Novolog Insulin Pen) (Adult SC Insulin - Mild Algorithm)... Q4 SC Last administered on 12/06/16 21:11; Admin Dose 1 UNIT; Start 12/02/16 at 01 :00 Metoclopramide HCl (Reglan) 5 mg Q6 PEG Last administered on 12/11/16 05:32; Admin Dose 5 MG; Start 12/03/16 at 01:00 Amikacin Sulfate (Amikacin Iv Per Pharmacy) AMIKACIN PER PHARMACY NOTE XX ; Start 12/06/16 at 10:30 Aspirin (Aspirin) 81 mg MONWEDFRI GTB ; Start 12/09/16 at 09:00; Status Future Hold Clopidogrel Bisulfate (plaVIX) 75 mg MONWEDFRI GTB ; Start 12/09/16 at 09:00; Status Future Hold Insulin Glargine 34 unit 34 unit DAILY@08 SC Last administered on 12/10/16 08: 11; Admin Dose 34 UNIT; Start 12/09/16 at 08:00 Vancomycin HCl 1.25 gm/Sodium Chloride 250 ml @ 83.333 mls/ hr Q96H IVPB Last administered on 6/5/17at 17:43; Admin Dose 83.333 MLS/HR; Start 12/09/16 at 17:00 Ertapenem/Sodium Chloride (Invanz/NS) 100 ml @ 200 mls/hr Q24H IVPB Last administered on 12/10/16 17:31; Admin Dose 200 MLS/HR; Start 12/09/16 at 16:00 DAMIR MARTINEZ MD Dec 11, 2016 09:03
[2016-12-11] MEDS: INSULIN GLARGINE [LANtus] 3 ML PEN SC SCH (09:33)
[2016-12-11] MEDS: L ACIDOPHIL/B LACTIS/B LONGUM CAPSULE PEG SCH ×3 (11:04→21:37)
[2016-12-11] MEDS: ESCITALOPRAM 10 MG TAB GTB SCH (11:04)
[2016-12-11] MEDS: DORZOLAMIDE/TIMOLOL 10 ML OPH BOTH EYES SCH ×2 (11:04→21:38)
[2016-12-11] MEDS: ARTIFICIAL TEARS 15 ML OPH BOTH EYES SCH ×4 (11:04→21:37)
[2016-12-11] MEDS: CALCIUM CARBONATE 500 MG CHEW TAB PEG SCH ×3 (11:05→21:37)
--- NOTE | 2016-12-11 13:19 | PN ---
DATE: 12/11/2016 INFECTIOUS DISEASE PROGRESS NOTE SUBJECTIVE: No acute changes. The patient having diarrhea, no fevers though. She tolerates tube f eeding. at bedside. No labs this morning. ANTIMICROBIALS: 1. Invanz. 2. Vancomycin. 3. Amikacin. INDWELLINGS: Left upper extremity PICC line and Perm-A-Cath. PHYSICAL EXAMINATION: GENERAL: This is a well-developed, chronically ill-appearing, elderly woman who is awake, in no dis tress. HEENT: Head atraumatic, normocephalic. Sclerae anicteric. Buccal mucosa dry. NECK: Supple, trachea midline. CHEST: Rise symmetrical. Breath sounds diminished to bases. HEART: S1, S2. ABDOMEN: Soft, bowel tones present. EXTREMITIES: No cyanosis. ASSESSMENT: 1. Persistent bacteremia with blood culture growing E. coli, possibly line sepsis. 2. Polymicrobial urinary tract infection with urine culture grew Escherichia coli, enterococcus spe cies and Klebsiella pneumoniae, extended-spectrum beta-lactamase. 3. Diarrhea, rule out Clostridium difficile colitis. 4. End-stage renal disease, hemodialysis dependent. 5. Dysphagia, status post percutaneous endoscopic gastrostomy. 6. Bilateral lower extremity gangrene. 7. History of cardiopulmonary arrest. PLAN: The patient remains stable. We will send stool for C. difficile. Repeat urine culture. Cons ider discontinuing PICC line as blood culture drawn from it grew E. coli and consider repeating bloo d cultures with next hemodialysis from [facility] again. Dictated By: ROSALINA SIMS CERTIFIED ATHLETIC TRAINER for [employer]EM[employer] LARA/NTS Conf#: [id number] DID#: [id number]
--- NOTE | 2016-12-11 16:13 | PN ---
Date/Time of Note Date/Time of Note DATE: 12/11/16 TIME: 16:08 Assessment/Plan VTE Prophylaxis VTE Prophylaxis Intervention: other (qod asa/ plavix) Lines/Catheters IV Catheter Type (from Nrsg): PICC Line Central line still needed: No Urinary Cath still in place: No Assessment/Plan Assessment/Plan 1. contact isolation 2. uti--on atbx 3. diarrhea 4. arf--dialysis 5. rld, pulm effusion 6. dm 7. cad/ htn/ pad--on atcoag 8. musc weak/ peg feed dep 9. depression ---per ID, do global c&s ---need to stop isolation status to be transferred to snf ---send for stool c diff ---per renal ---cont all supportive care as ---soc serv to talk to pt re: further intubation & chest press vs. chemical code only Subjective 24 Hr Interval Summary Free Text/Dictation unmotivated Exam/Review of Systems Vital Signs Vitals Vital Signs Date Time Temp Pulse Resp B/P Pulse Ox O2 Delivery O2 Flow Rate FiO2 12/11/16 14:40 97 18 95 21 12/11/16 08:47 98.4 106/53 12/10/16 09:43 Nasal Cannula 2.0 Intake and Output 12/10/16 12/10/16 12/11/16 15:00 23:00 07:00 Intake Total 788 ml 840 ml Output Total 2500 ml Balance -1712 ml 840 ml Exam in bed, obese--has not participated in any of ot/pt exercises failed another speech rx bedside swallow test less edema, toes blue black+ dec bs rr Results Result Diagram: 12/10/16 1000 12/10/16 1000 Results 24 hrs Laboratory Tests Test 12/10/16 17:24 12/10/16 21:43 12/11/16 00:47 12/11/16 05:30 Bedside Glucose 120 106 76 76 Test 12/11/16 08:40 12/11/16 13:35 Bedside Glucose 77 130 Medications Medications Current Medications Acetaminophen (Tylenol Liquid) 650 mg Q4H PRN NGT PAIN AND OR ELEVATED TEMP Last administered on 11/09/16t 11:10; Admin Dose 650 MG; Start 09/21/16 at 02:00 Epoetin Raj (Epogen (Esrd)) 10,000 units TuThSa@17 SC Last administered on 12/10 17:35; Admin Dose 10,000 UNITS; Start 09/26/16 at 17:00 IV Flush (NS 10 ml) 10 ml PRN PRN IV IV PROTOCOL Last administered on 12/06/16 21:06; Admin Dose 10 ML; Start 09/26/16 at 17:30 Lactulose (Enulose) 20 gm BID PRN PO CONSTIPATION Last administered on 05:34; Admin Dose 20 GM; Start 10/23/16 at 10:30 Amylase/Lipase/ Protease (CREON (08u-[id number])) 3 cap Q6 NGT Last administered on 12/11/16 05:31; Admin Dose 3 CAP; Start 10/29/16 at 13:00 Latanoprost (Xalatan) 1 drop HS BOTH EYES Last administered on 12/10/16 21:44; Admin Dose 1 DROP; Start 10/31/16 at 21:00 Dorzolamide/ Timolol (Cosopt) 1 drop BID BOTH EYES Last administered on 11:04; Admin Dose 1 DROP; Start 10/31/16 at 21:00 Glucagon (Glucagen) 1 mg Q15M PRN IM DECREASED GLUCOSE; Start 11/03/16 at 18:00 Ondansetron HCl (Zofran Inj) 4 mg Q4H PRN IV NAUSEA AND/OR VOMITING Last administered on 12/01/16 15:04; Admin Dose 4 MG; Start 11/04/16 at 23:00 Eye Lubricant (Artificial Tears Oph) 2 drop QID BOTH EYES Last administered on 12/11/16 13:37; Admin Dose 2 DROP; Start 11/07/16 at 09:00 Morphine Sulfate (morphine) 1 mg Q3H PRN IV pain Last administered on 12/10/16 08:16; Admin Dose 1 MG; Start 11/10/16 at 08:00 Miscellaneous Information 1 ea NOTE XX ; Start 11/14/16 at 10:00 Glucose (Glutose) 15 gm Q15M PRN PO DECREASED GLUCOSE; Start 11/14/16 at 10:00 Glucose (Glutose) 22.5 gm Q15M PRN PO DECREASED GLUCOSE; Start 11/14/16 at 10: 00 Dextrose (D50w Syringe) 25 ml Q15M PRN IV DECREASED GLUCOSE Last administered on 12/09/16 17:59; Admin Dose 25 ML; Start 11/14/16 at 10:00 Dextrose (D50w Syringe) 50 ml Q15M PRN IV DECREASED GLUCOSE Last administered on 12/07/16 05:29; Admin Dose 50 ML; Start 11/14/16 at 10:00 Glucose (Glutose) 15 gm Q15M PRN BUCCAL DECREASED GLUCOSE; Start 11/14/16 at 10 :00 Escitalopram Oxalate (Lexapro) 10 mg DAILY GTB Last administered on 12/11/16 11 :04; Admin Dose 10 MG; Start 11/16/16 at 12:30 Lactobacillus Acidophilus (Florajen3 Capsule) 1 each TID PEG Last administered on 12/11/16 13:36; Admin Dose 1 EACH; Start 11/23/16 at 21:00 Calcium Carbonate (Tums) 500 mg TID PEG Last administered on 12/11/16 13:37; Admin Dose 500 MG; Start 11/23/16 at 21:00 Metoprolol Tartrate (Lopressor) 25 mg BID GTB Last administered on 12/10/16 11: 39; Admin Dose 25 MG; Start 11/23/16 at 21:00 Insulin Aspart (Novolog Insulin Pen) (Adult SC Insulin - Mild Algorithm)... Q4 SC Last administered on 12/06/16 21:11; Admin Dose 1 UNIT; Start 12/02/16 at 01 :00 Metoclopramide HCl (Reglan) 5 mg Q6 PEG Last administered on 12/11/16 05:32; Admin Dose 5 MG; Start 12/03/16 at 01:00 Amikacin Sulfate (Amikacin Iv Per Pharmacy) AMIKACIN PER PHARMACY NOTE XX ; Start 12/06/16 at 10:30 Aspirin (Aspirin) 81 mg MONWEDFRI GTB ; Start 12/09/16 at 09:00; Status Future Hold Clopidogrel Bisulfate (plaVIX) 75 mg MONWEDFRI GTB ; Start 12/09/16 at 09:00; Status Future Hold Insulin Glargine 34 unit 34 unit DAILY@08 SC Last administered on 12/11/16 09: 33; Admin Dose 26 UNIT; Start 12/09/16 at 08:00 Vancomycin HCl 1.25 gm/Sodium Chloride 250 ml @ 83.333 mls/ hr Q96H IVPB Last administered on 12/09/16 17:43; Admin Dose 83.333 MLS/HR; Start 12/09/16 at 17:00 Ertapenem/Sodium Chloride (Invanz/NS) 100 ml @ 200 mls/hr Q24H IVPB Last administered on 12/10/16 17:31; Admin Dose 200 MLS/HR; Start 12/09/16 at 16:00 Lansoprazole (Prevacid) 30 mg DAILY@06 GTB ; Start 12/12/16 at 06:00 SHAMA LOPEZ MD Dec 11, 2016 16:13
[2016-12-11] MEDS: LATANOPROST 0.005% 2.5 ML OPH BOTH EYES SCH (21:38)
[2016-12-11 21:40] VITALS: BP 105/53; RESP 20
[2016-12-11] MEDS: ERTAPENEM SODIUM 0.5 GM in SOD CHLORIDE 0.9% 100 ML IVPB SCH (23:07)
[2016-12-12] VITALS (9 sets, daily range): BP systolic 91–129; BP diastolic 44–60; PULSE 83–88; RESP 20
[2016-12-12] MEDS: CREON (12k-38k-60k) 1 CAP NGT SCH ×4 (00:29→17:01)
[2016-12-12] MEDS: METOCLOPRAMIDE 10 MG TAB PEG SCH ×4 (00:40→17:01)
[2016-12-12] MEDS: INSULIN ASPART [NOVOLOG] 3 ML PEN SC SCH ×6 (01:00→21:00)
[2016-12-12] MEDS: IPRATROPIUM (NEB) 0.5 MG/2.5 ML AMP HHN SCH ×5 (01:06→23:51)
[2016-12-12] MEDS: LEVALBUTEROL (NEB) 1.25 MG/0.5 ML AMP HHN SCH ×5 (01:06→23:51)
[2016-12-12 05:33] LABS: ADD SCAN DIFF NO
[2016-12-12 06:04] LABS: BASOPHILS % 0.1 % (0.0-2.0); EOSINOPHILS # 0.1 10^3/ul (0.0-0.5); EOSINOPHILS % 0.7 % (0.0-7.0); HEMATOCRIT 27.8 % (37.0-47.0); HEMOGLOBIN 8.4 g/dl (12.0-16.0); LYMPHOCYTES % 10.8 % (15.0-51.0); MEAN CORPUSCULAR HEMOGLOBIN 27.2 pg (29.0-33.0); MEAN CORPUSCULAR HGB CONC 30.2 g/dl (32.0-37.0); MONOCYTE # 1.1 10^3/ul (0.3-0.9); MONOCYTES % 5.8 % (0.0-11.0); NEUTROPHIL # 14.6 10^3/ul (1.6-7.5); NEUTROPHILS % 81.2 % (39.0-77.0); PLATELET COUNT 400 10^3/UL (140-415); RED BLOOD COUNT 3.09 10^6/ul (4.20-5.40); RED CELL DISTRIBUTION WIDTH 17.8 % (11.5-14.5)
[2016-12-12 06:25] LABS: CALCIUM 8.7 mg/dl (8.4-10.2); CREATININE 2.03 mg/dl (0.44-1.00)
[2016-12-12] MEDS: LANSOPRAZOLE 30 MG CAP GTB SCH (06:44)
[2016-12-12] MEDS: ESCITALOPRAM 10 MG TAB GTB SCH (08:58)
[2016-12-12] MEDS: L ACIDOPHIL/B LACTIS/B LONGUM CAPSULE PEG SCH ×3 (08:58→21:34)
[2016-12-12] MEDS: METOPROLOL 25 MG TAB GTB SCH ×2 (08:59→21:00)
[2016-12-12] MEDS: DORZOLAMIDE/TIMOLOL 10 ML OPH BOTH EYES SCH ×2 (08:59→21:00)
[2016-12-12] MEDS: ARTIFICIAL TEARS 15 ML OPH BOTH EYES SCH ×4 (08:59→21:00)
[2016-12-12] MEDS: CALCIUM CARBONATE 500 MG CHEW TAB PEG SCH ×3 (08:59→21:34)
--- NOTE | 2016-12-12 08:59 | CONS ---
Date/Time of Note Date/Time of Note DATE: 12/12/16 TIME: 08:56 Assessment/Plan Assessment/Plan Chief Complaint/Hosp Course 1. Acute Renal Failure due to ATN . She is now on maintenance hemodialysis . She has less evidence of volume overload . Dialysis has been ordered for today . She is currently on a Friday schedule. 2. ALOC , she continues to be very weak and lethargic . But overall better . She is making progress with PT . 3. liver enzyme elevation has resolved.. 4. CHF , her chest x-ray shows some clearing, she is having fluid removed with dialysis and is overall better with fluid balance. 5. hypocalcemia/hypoalbuminemia , calcium is higher 6. anemia , She has no active GI bleeding now. 7. peripheral vascular disease .gangrene of toes of both feet . 8. respiratory failure , pulmonary function has improved . 9 dysphagia , she has a PEG . 10. discharge planning . She can be discharged to home or SNF , with outpatient dialysis . 11. DM , blood sugars are lower 12. Leukocytosis , WBC is down to 18,000 today, she is growing e coli in the blood , from urine . Antibiotics have been started and she is being followed by infectious disease center consultant. They are managing her antibiotics. 13. Today she complains of some abdominal pain and is tender in the left upper quadrant. abdominal ultrasound yesterday was negative . . Problems: Consultation Date/Type/Reason Admit Date/Time Sep 20, 2016 at 19:21 Initial Consult Date 09/23/16 Type of Consultation: renal Referring Provider: ZANDRA ROBISON MD, [facility] HR Interval Summary Free Text/Dictation She seems more awake today Constitutional: no complaints Exam/Review of Systems Vital Signs Vitals Vital Signs Date Time Temp Pulse Resp B/P Pulse Ox O2 Delivery O2 Flow Rate FiO2 12/12/16 08:35 98.2 85 20 129/60 96 12/12/16 01:07 21 12/10/16 09:43 Nasal Cannula 2.0 Intake and Output 12/11/16 12/11/16 12/12/16 15:00 23:00 07:00 Intake Total 0 ml 390 ml Output Total 600 ml Balance -600 ml 390 ml Exam Constitutional: alert, obese, oriented Respiratory: clear to auscultation, normal air movement Cardiovascular: regular rate and rhythm Gastrointestinal: soft, tender Musculoskeletal: nl extremities to inspection Results Result Diagram: 12/12/16 0450 12/12/16 0450 Results 24 hrs Laboratory Tests Test 12/11/16 13:35 12/11/16 21:50 12/12/16 01:25 12/12/16 04:44 Bedside Glucose 130 84 77 116 Test 12/12/16 04:50 White Blood Count 18.0 H Red Blood Count 3.09 L Hemoglobin 8.4 L Hematocrit 27.8 L Mean Corpuscular Volume 90.0 Mean Corpuscular Hemoglobin 27.2 L Mean Corpuscular Hemoglobin Concent 30.2 L Red Cell Distribution Width 17.8 H Platelet Count 400 Mean Platelet Volume 10.0 Neutrophils % 81.2 H Lymphocytes % 10.8 L Monocytes % 5.8 Eosinophils % 0.7 Basophils % 0.1 Nucleated Red Blood Cells % 0.0 Neutrophils # 14.6 H Lymphocytes # 2.0 Monocytes # 1.1 H Eosinophils # 0.1 Basophils # 0.0 Nucleated Red Blood Cells # 0.0 Sodium Level 138 Potassium Level 4.0 Chloride Level 102 Carbon Dioxide Level 28 Anion Gap 12 Blood Urea Nitrogen 64 H Creatinine 2.03 H Glucose Level 108 Calcium Level 8.7 Medications Medications Current Medications Acetaminophen (Tylenol Liquid) 650 mg Q4H PRN NGT PAIN AND OR ELEVATED TEMP Last administered on 11/09/16 11:10; Admin Dose 650 MG; Start 09/21/16 at 02:00 Epoetin Raj (Epogen (Esrd)) 10,000 units TuThSa@17 SC Last administered on 12/10 17:35; Admin Dose 10,000 UNITS; Start 09/26/16 at 17:00 IV Flush (NS 10 ml) 10 ml PRN PRN IV IV PROTOCOL Last administered on 12/06/16 21:06; Admin Dose 10 ML; Start 09/26/16 at 17:30 Lactulose (Enulose) 20 gm BID PRN PO CONSTIPATION Last administered on 05:34; Admin Dose 20 GM; Start 10/23/16 at 10:30 Amylase/Lipase/ Protease (CREON (12k-38k-60k)) 3 cap Q6 NGT Last administered on 12/12/16 06:44; Admin Dose 3 CAP; Start 10/29/16 at 13:00 Latanoprost (Xalatan) 1 drop HS BOTH EYES Last administered on 12/11/16 21:38; Admin Dose 1 DROP; Start 10/31/16 at 21:00 Dorzolamide/ Timolol (Cosopt) 1 drop BID BOTH EYES Last administered on 21:38; Admin Dose 1 DROP; Start 10/31/16 at 21:00 Glucagon (Glucagen) 1 mg Q15M PRN IM DECREASED GLUCOSE; Start 11/03/16 at 18:00 Ondansetron HCl (Zofran Inj) 4 mg Q4H PRN IV NAUSEA AND/OR VOMITING Last administered on 12/01/16 15:04; Admin Dose 4 MG; Start 11/04/16 at 23:00 Eye Lubricant (Artificial Tears Oph) 2 drop QID BOTH EYES Last administered on 12/11/16 21:37; Admin Dose 2 DROP; Start 11/07/16 at 09:00 Morphine Sulfate (morphine) 1 mg Q3H PRN IV pain Last administered on 12/10/16 08:16; Admin Dose 1 MG; Start 11/10/16 at 08:00 Miscellaneous Information 1 ea NOTE XX ; Start 11/14/16 at 10:00 Glucose (Glutose) 15 gm Q15M PRN PO DECREASED GLUCOSE; Start 11/14/16 at 10:00 Glucose (Glutose) 22.5 gm Q15M PRN PO DECREASED GLUCOSE; Start 11/14/16 at 10: 00 Dextrose (D50w Syringe) 25 ml Q15M PRN IV DECREASED GLUCOSE Last administered on 12/09/16 17:59; Admin Dose 25 ML; Start 11/14/16 at 10:00 Dextrose (D50w Syringe) 50 ml Q15M PRN IV DECREASED GLUCOSE Last administered on 12/07/16 05:29; Admin Dose 50 ML; Start 11/14/16 at 10:00 Glucose (Glutose) 15 gm Q15M PRN BUCCAL DECREASED GLUCOSE; Start 11/14/16 at 10 :00 Escitalopram Oxalate (Lexapro) 10 mg DAILY GTB Last administered on 12/11/16 11 :04; Admin Dose 10 MG; Start 11/16/16 at 12:30 Lactobacillus Acidophilus (Florajen3 Capsule) 1 each TID PEG Last administered on 12/11/16 21:37; Admin Dose 1 EACH; Start 11/23/16 at 21:00 Calcium Carbonate (Tums) 500 mg TID PEG Last administered on 12/11/16 21:37; Admin Dose 500 MG; Start 11/23/16 at 21:00 Metoprolol Tartrate (Lopressor) 25 mg BID GTB Last administered on 12/11/16 21: 37; Admin Dose 25 MG; Start 11/23/16 at 21:00 Insulin Aspart (Novolog Insulin Pen) (Adult SC Insulin - Mild Algorithm)... Q4 SC Last administered on 12/06/16 21:11; Admin Dose 1 UNIT; Start 12/02/16 at 01 :00 Metoclopramide HCl (Reglan) 5 mg Q6 PEG Last administered on 12/12/16 06:44; Admin Dose 5 MG; Start 12/03/16 at 01:00 Amikacin Sulfate (Amikacin Iv Per Pharmacy) AMIKACIN PER PHARMACY NOTE XX ; Start 12/06/16 at 10:30 Aspirin (Aspirin) 81 mg MONWEDFRI GTB ; Start 12/09/16 at 09:00; Status Future Hold Clopidogrel Bisulfate (plaVIX) 75 mg MONWEDFRI GTB ; Start 12/09/16 at 09:00; Status Future Hold Insulin Glargine 34 unit 34 unit DAILY@08 SC Last administered on 12/11/16 09: 33; Admin Dose 26 UNIT; Start 12/09/16 at 08:00 Vancomycin HCl 1.25 gm/Sodium Chloride 250 ml @ 83.333 mls/ hr Q96H IVPB Last administered on 12/09/16 17:43; Admin Dose 83.333 MLS/HR; Start 12/09/16 at 17:00 Ertapenem/Sodium Chloride (Invanz/NS) 100 ml @ 200 mls/hr Q24H IVPB Last administered on 12/11/16 23:07; Admin Dose 200 MLS/HR; Start 12/09/16 at 16:00 Lansoprazole (Prevacid) 30 mg DAILY@06 GTB Last administered on 12/12/16 06:44 ; Admin Dose 30 MG; Start 12/12/16 at 06:00 DAMIR MARTINEZ MD Dec 12, 2016 08:59
[2016-12-12] MEDS: INSULIN GLARGINE [LANtus] 3 ML PEN SC SCH (09:11)
[2016-12-12 11:37] LABS: HAAIG REFLEX REFLEX FILED
--- NOTE | 2016-12-12 13:35 | PN ---
Date/Time of Note Date/Time of Note DATE: 12/12/16 TIME: 13:29 Assessment/Plan VTE Prophylaxis VTE Prophylaxis Intervention: other (hep prior each dialysis) Lines/Catheters IV Catheter Type (from Nrs): Saline Lock Central line still needed: No Urinary Cath still in place: No Assessment/Plan Assessment/Plan 1. hematuria/ uti/ high wbc/ on atbx 2. arf/ anemia/ dialysis dep 3. musc weak/ peg feed dep 4. cad/ htn/ pad 5. dm 6. depression 7. rld/ pulm effusion ---cont atbx, per ID ---per renal ---atcoag only prior dialysis to prevent further severe anemia & hematuria ---global lab studies to clear pt to be transferred to snf as early as next week ---cont all supportive cares Subjective 24 Hr Interval Summary Free Text/Dictation lf low abd pain? Exam/Review of Systems Vital Signs Vitals Vital Signs Date Time Temp Pulse Resp B/P Pulse Ox O2 Delivery O2 Flow Rate FiO2 12/12/16 08:35 98.2 85 20 129/60 96 12/12/16 01:07 21 12/10/16 09:43 Nasal Cannula 2.0 Intake and Output 12/11/16 12/11/16 12/12/16 14:59 22:59 06:59 Intake Total 0 ml 390 ml Output Total 600 ml Balance -600 ml 390 ml Exam in bed, obese, not motivated enough to move about toes blue black on diaper hematuria noted dec bs rr Results Result Diagram: 12/12/16 0450 12/12/16 0450 Results 24 hrs Laboratory Tests Test 12/11/16 13:35 12/11/16 21:50 12/12/16 01:25 12/12/16 04:44 Bedside Glucose 130 84 77 116 Test 12/12/16 04:50 12/12/16 08:56 12/12/16 12:07 White Blood Count 18.0 H Red Blood Count 3.09 L Hemoglobin 8.4 L Hematocrit 27.8 L Mean Corpuscular Volume 90.0 Mean Corpuscular Hemoglobin 27.2 L Mean Corpuscular Hemoglobin Concent 30.2 L Red Cell Distribution Width 17.8 H Platelet Count 400 Mean Platelet Volume 10.0 Neutrophils % 81.2 H Lymphocytes % 10.8 L Monocytes % 5.8 Eosinophils % 0.7 Basophils % 0.1 Nucleated Red Blood Cells % 0.0 Neutrophils # 14.6 H Lymphocytes # 2.0 Monocytes # 1.1 H Eosinophils # 0.1 Basophils # 0.0 Nucleated Red Blood Cells # 0.0 Sodium Level 138 Potassium Level 4.0 Chloride Level 102 Carbon Dioxide Level 28 Anion Gap 12 Blood Urea Nitrogen 64 H Creatinine 2.03 H Glucose Level 108 Calcium Level 8.7 Hepatitis B Surface Antigen Pending Hepatitis B Core Total Antibody Pending Hepatitis C Antibody Pending Bedside Glucose 94 131 Medications Medications Current Medications Acetaminophen (Tylenol Liquid) 650 mg Q4H PRN NGT PAIN AND OR ELEVATED TEMP Last administered on 11/09/16 11:10; Admin Dose 650 MG; Start 09/21/16 at 02:00 Epoetin Raj (Epogen (Esrd)) 10,000 units TuThSa@17 SC Last administered on 12/10 17:35; Admin Dose 10,000 UNITS; Start 09/26/16 at 17:00 IV Flush (NS 10 ml) 10 ml PRN PRN IV IV PROTOCOL Last administered on 12/06/16 21:06; Admin Dose 10 ML; Start 09/26/16 at 17:30 Lactulose (Enulose) 20 gm BID PRN PO CONSTIPATION Last administered on 05:34; Admin Dose 20 GM; Start 10/23/16 at 10:30 Amylase/Lipase/ Protease (CREON (12k-38k-60k)) 3 cap Q6 NGT Last administered on 12/12/16 12:08; Admin Dose 3 CAP; Start 10/29/16 at 13:00 Latanoprost (Xalatan) 1 drop HS BOTH EYES Last administered on 12/11/16 21:38; Admin Dose 1 DROP; Start 10/31/16 at 21:00 Dorzolamide/ Timolol (Cosopt) 1 drop BID BOTH EYES Last administered on 08:59; Admin Dose 1 DROP; Start 10/31/16 at 21:00 Glucagon (Glucagen) 1 mg Q15M PRN IM DECREASED GLUCOSE; Start 11/03/16 at 18:00 Ondansetron HCl (Zofran Inj) 4 mg Q4H PRN IV NAUSEA AND/OR VOMITING Last administered on 12/01/16 15:04; Admin Dose 4 MG; Start 11/04/16 at 23:00 Eye Lubricant (Artificial Tears Oph) 2 drop QID BOTH EYES Last administered on 12/12/16 12:09; Admin Dose 2 DROP; Start 11/07/16 at 09:00 Morphine Sulfate (morphine) 1 mg Q3H PRN IV pain Last administered on 12/10/16 08:16; Admin Dose 1 MG; Start 11/10/16 at 08:00 Miscellaneous Information 1 ea NOTE XX ; Start 11/14/16 at 10:00 Glucose (Glutose) 15 gm Q15M PRN PO DECREASED GLUCOSE; Start 11/14/16 at 10:00 Glucose (Glutose) 22.5 gm Q15M PRN PO DECREASED GLUCOSE; Start 11/14/16 at 10: 00 Dextrose (D50w Syringe) 25 ml Q15M PRN IV DECREASED GLUCOSE Last administered on 12/09/16 17:59; Admin Dose 25 ML; Start 11/14/16 at 10:00 Dextrose (D50w Syringe) 50 ml Q15M PRN IV DECREASED GLUCOSE Last administered on 12/07/16 05:29; Admin Dose 50 ML; Start 11/14/16 at 10:00 Glucose (Glutose) 15 gm Q15M PRN BUCCAL DECREASED GLUCOSE; Start 11/14/16 at 10 :00 Escitalopram Oxalate (Lexapro) 10 mg DAILY GTB Last administered on 12/12/16 08 :58; Admin Dose 10 MG; Start 11/16/16 at 12:30 Lactobacillus Acidophilus (Florajen3 Capsule) 1 each TID PEG Last administered on 12/12/16 12:08; Admin Dose 1 EACH; Start 11/23/16 at 21:00 Calcium Carbonate (Tums) 500 mg TID PEG Last administered on 12/12/16 12:06; Admin Dose 500 MG; Start 11/23/16 at 21:00 Metoprolol Tartrate (Lopressor) 25 mg BID GTB Last administered on 12/12/16 08: 59; Admin Dose 25 MG; Start 11/23/16 at 21:00 Insulin Aspart (Novolog Insulin Pen) (Adult SC Insulin - Mild Algorithm)... Q4 SC Last administered on 12/06/16 21:11; Admin Dose 1 UNIT; Start 12/02/16 at 01 :00 Metoclopramide HCl (Reglan) 5 mg Q6 PEG Last administered on 12/12/16 12:08; Admin Dose 5 MG; Start 12/03/16 at 01:00 Amikacin Sulfate (Amikacin Iv Per Pharmacy) AMIKACIN PER PHARMACY NOTE XX ; Start 12/06/16 at 10:30 Aspirin (Aspirin) 81 mg MONWEDFRI GTB ; Start 12/09/16 at 09:00; Status Future Hold Clopidogrel Bisulfate 75 mg 75 mg MONWEDFRI GTB ; Start 12/09/16 at 09:00; Status Future Hold Vancomycin HCl 1.25 gm/Sodium Chloride 250 ml @ 83.333 mls/ hr Q96H IVPB Last administered on 12/09/16 17:43; Admin Dose 83.333 MLS/HR; Start 12/09/16 at 17:00 Ertapenem/Sodium Chloride (Invanz/NS) 100 ml @ 200 mls/hr Q24H IVPB Last administered on 12/11/16 23:07; Admin Dose 200 MLS/HR; Start 12/09/16 at 16:00 Lansoprazole (Prevacid) 30 mg DAILY@06 GTB Last administered on 12/12/16 06:44 ; Admin Dose 30 MG; Start 12/12/16 at 06:00 Insulin Glargine (Lantus) 26 unit DAILY@08 SC ; Start 12/13/16 at 08:00 SHAMA LOPEZ MD Dec 12, 2016 13:35
--- NOTE | 2016-12-12 14:17 | RADRPT ---
PROCEDURE: CHEST 1VW CLINICAL INDICATION: Shortness of breath TECHNIQUE: Single frontal view of the chest was obtained COMPARISON: 12/10/2016 FINDINGS: Stable dialysis catheter. Interval removal of left PICC. The cardiac size is mildly enlarged. Aortic vascular calcifications are demonstrated. There is mild pulmonary vascular congestion. Small right pleural effusion is seen with associated atelectasis.. Mild degenerative changes of the visualized osseous structures are visualized. IMPRESSION: 1. Mild cardiomegaly with mild pulmonary vascular congestion. Small right pleural effusion with ass ociated atelectasis. 2. Atherosclerosis. RPTAT:PP .Vaughn Heart MD, MD Date Time Electronically viewed and signed by .Vaughn Heart MD, MD on 12/12/2016 14:17 .V/
--- NOTE | 2016-12-12 16:08 | PN ---
DATE: 12/12/2016 SUBJECTIVE: The patient had emesis this morning. She is lethargic, opens eyes to commands, looks comfortable, at bedside. No fevers. VITAL SIGNS: Temperature 98.2, pulse 85, respirations 20, blood pressure 129/60 , saturation 96% on nasal cannula. WBC 18, H and H 8.4 and 27.8, platelets 400 , neutrophils 81.2. INDWELLINGS: The patient has right chest Perm-A-Cath. DIAGNOSTICS: Chest x-ray this morning revealed mild cardiomegaly. MICROBIOLOGY: Blood cultures repeated on 12/08/2016 growing E. coli. Stool for C. diff came back negative. Repeat urine culture pending. The patient has PICC line discontinued yesterday and the tip was sent for culture and that one is pending as well. ANTIMICROBIALS: 1. She is on IV vancomycin 2. Invanz 3. Amikacin. PHYSICAL EXAMINATION: GENERAL: Chronically ill-appearing, elderly woman who is in no distress. HEENT: Head atraumatic, normocephalic. Sclerae anicteric. Buccal mucosa dry. NECK: Supple. CHEST: Rise symmetrical. Breath sounds diminished to bases. HEART: S1, S2. ABDOMEN: Soft, bowel tones present. EXTREMITIES: Bilateral throat gangrene. ASSESSMENT: 1. Sepsis with persistent bacteremia, possibly line sepsis, status post PICC line discontinued. The patient still has Perm-A-Cath. 2. Polymicrobial multidrug resistant urinary tract infection. 3. End-stage renal disease, hemodialysis dependent. 4. Diarrhea, stool came back negative for Clostridium difficile. 5. Dysphagia. 6. Bilateral lower extremities gangrene. 7. History of cardiopulmonary arrest. PLAN: The patient is stable clinically, although had emesis this afternoon. The PICC line was discontinued. Tip culture pending. We will order KUB. Await for final cultures. Above was discussed with at bedside. Dictated By: ROSALINA SIMS LAUNDRY WASHER for [employer] LARA/JERROD Conf#: [id number] DID#: [id number]
[2016-12-12] MEDS: AMIKACIN IVPB SCH ×2 (17:30→21:34)
[2016-12-12] MEDS: SOD CHLORIDE 0.9% IVPB SCH ×2 (17:30→21:34)
[2016-12-12] MEDS: ONDANSETRON 4 MG INJ IV PRN ×2 (17:34→21:46)
[2016-12-12] MEDS: ERTAPENEM SODIUM 0.5 GM in SOD CHLORIDE 0.9% 100 ML IVPB SCH (17:34)
[2016-12-12] MEDS: EPOETIN 10000 UNITS/1 ML INJ (ESRD) SC SCH (17:35)
[2016-12-12 19:12] LABS: HEPATITIS B CORE ANTIBODY NEGATIVE (NEGATIVE)
[2016-12-12] MEDS: LATANOPROST 0.005% 2.5 ML OPH BOTH EYES SCH (21:00)
[2016-12-13] VITALS (10 sets, daily range): BP systolic 90–129; BP diastolic 51–64; PULSE 75–85; RESP 18–20
[2016-12-13] MEDS: INSULIN ASPART [NOVOLOG] 3 ML PEN SC SCH ×6 (01:00→21:00)
[2016-12-13] MEDS: LEVALBUTEROL (NEB) 1.25 MG/0.5 ML AMP HHN SCH ×4 (04:23→20:56)
[2016-12-13] MEDS: IPRATROPIUM (NEB) 0.5 MG/2.5 ML AMP HHN SCH ×4 (04:23→20:56)
[2016-12-13] MEDS: DEXTROSE 50% 50 ML SYRINGE IV PRN ×2 (05:56→10:08)
[2016-12-13] MEDS: GLUCAGON 1 MG INJ IM PRN (06:04)
[2016-12-13] MEDS: METOCLOPRAMIDE 10 MG TAB PEG SCH ×5 (06:42→22:02)
[2016-12-13] MEDS: CREON (12k-38k-60k) 1 CAP NGT SCH ×5 (06:42→22:01)
[2016-12-13] MEDS: LANSOPRAZOLE 30 MG CAP GTB SCH (06:42)
[2016-12-13] MEDS: INSULIN GLARGINE [LANtus] 3 ML PEN SC SCH (08:00)
--- NOTE | 2016-12-13 08:50 | CONS ---
Date/Time of Note Date/Time of Note DATE: 12/13/16 TIME: 08:42 Assessment/Plan Assessment/Plan Chief Complaint/Hosp Course 1. Acute Renal Failure due to ATN . She is now on maintenance hemodialysis . She has some mild CHF on CXR . Dry Ultrafiltration has been ordered for today . She is currently on a Friday schedule for her routine hemodialysis and hemodialysis was ordered for tomorrow . 2. ALOC , she continues to be very weak and lethargic . But overall better . 3. liver enzyme elevation has resolved.. 4. CHF , her chest x-ray shows some clearing, she is having fluid removed with dialysis and is overall better with fluid balance. 5. hypocalcemia/hypoalbuminemia , calcium is higher 6. anemia , She has no active GI bleeding now. 7. peripheral vascular disease .gangrene of toes of both feet . 8. respiratory failure , pulmonary function has improved . 9 dysphagia , she has a PEG . 10. discharge planning . She can be discharged to home or SNF , with outpatient dialysis . 11. DM , blood sugars are low because tube feeding is off , will start IV fluid . 12. Leukocytosis , WBC is down to 18,000 today, she is growing e coli in the blood , from urine . Antibiotics have been started and she is being followed by infectious disease wine consultant. They are managing her antibiotics.PICC line removed because of possible line sepsis . . Problems: Consultation Date/Type/Reason Admit Date/Time Sep 20, 2016 at 19:21 Initial Consult Date 09/23/16 Type of Consultation: renal Referring Provider: ZANDRA ROBISON MD, [facility] Interval Summary Free Text/Dictation She is lethargic , but rouses easily to verbal stimuli . She was vomiting and tube feeding was stopped . Blood sugar was low . Constitutional: no complaints Exam/Review of Systems Vital Signs Vitals Vital Signs Date Time Temp Pulse Resp B/P Pulse Ox O2 Delivery O2 Flow Rate FiO2 12/13/16 08:37 98.2 92 20 129/60 100 12/13/16 04:24 Nasal Cannula 2.0 12/12/16 01:07 21 Intake and Output 12/12/16 12/12/16 12/13/16 15:00 23:00 07:00 Intake Total 1080 ml Output Total 2500 ml 200 ml Balance -1420 ml -200 ml Exam Constitutional: alert, frail, obese, oriented Respiratory: congested cough, diminished breath sounds Cardiovascular: regular rate and rhythm Musculoskeletal: nl extremities to inspection Results Result Diagram: 12/12/16 0450 12/13/16 0630 Results 24 hrs Laboratory Tests Test 12/12/16 08:56 12/12/16 12:07 12/12/16 17:07 12/12/16 21:27 Bedside Glucose 94 131 139 85 Test 12/13/16 01:46 12/13/16 05:56 12/13/16 06:17 12/13/16 06:30 Bedside Glucose 76 37 *L 55 L Glucose Level 48 #*L Test 12/13/16 06:40 12/13/16 07:11 12/13/16 07:31 Bedside Glucose 78 86 90 Medications Medications Current Medications Acetaminophen (Tylenol Liquid) 650 mg Q4H PRN NGT PAIN AND OR ELEVATED TEMP Last administered on 11/09/16 11:10; Admin Dose 650 MG; Start 09/21/16 at 02:00 Epoetin Raj (Epogen (Esrd)) 10,000 units TuThSa@17 SC Last administered on 12/12 17:35; Admin Dose 10,000 UNITS; Start 09/26/16 at 17:00 IV Flush (NS 10 ml) 10 ml PRN PRN IV IV PROTOCOL Last administered on 12/12/16 21:49; Admin Dose 10 ML; Start 09/26/16 at 17:30 Lactulose (Enulose) 20 gm BID PRN PO CONSTIPATION Last administered on 05:34; Admin Dose 20 GM; Start 10/23/16 at 10:30 Amylase/Lipase/ Protease (CREON (12k-38k-60k)) 3 cap Q6 NGT Last administered on 12/13/16 06:42; Admin Dose 3 CAP; Start 10/29/16 at 13:00 Latanoprost (Xalatan) 1 drop HS BOTH EYES Last administered on 12/11/16 21:38; Admin Dose 1 DROP; Start 10/31/16 at 21:00 Dorzolamide/ Timolol (Cosopt) 1 drop BID BOTH EYES Last administered on 08:59; Admin Dose 1 DROP; Start 10/31/16 at 21:00 Glucagon (Glucagen) 1 mg Q15M PRN IM DECREASED GLUCOSE Last administered on 12/13 06:04; Admin Dose 1 MG; Start 11/03/16 at 18:00 Ondansetron HCl (Zofran Inj) 4 mg Q4H PRN IV NAUSEA AND/OR VOMITING Last administered on 12/12/16 21:46; Admin Dose 4 MG; Start 11/04/16 at 23:00 Eye Lubricant (Artificial Tears Oph) 2 drop QID BOTH EYES Last administered on 12/12/16 17:34; Admin Dose 2 DROP; Start 11/07/16 at 09:00 Morphine Sulfate (morphine) 1 mg Q3H PRN IV pain Last administered on 12/10/16 08:16; Admin Dose 1 MG; Start 11/10/16 at 08:00 Miscellaneous Information 1 ea NOTE XX ; Start 11/14/16 at 10:00 Glucose (Glutose) 15 gm Q15M PRN PO DECREASED GLUCOSE; Start 11/14/16 at 10:00 Glucose (Glutose) 22.5 gm Q15M PRN PO DECREASED GLUCOSE; Start 11/14/16 at 10: 00 Dextrose (D50w Syringe) 25 ml Q15M PRN IV DECREASED GLUCOSE Last administered on 12/09/16 17:59; Admin Dose 25 ML; Start 11/14/16 at 10:00 Dextrose (D50w Syringe) 50 ml Q15M PRN IV DECREASED GLUCOSE Last administered on 12/07/16 05:29; Admin Dose 50 ML; Start 11/14/16 at 10:00 Glucose (Glutose) 15 gm Q15M PRN BUCCAL DECREASED GLUCOSE; Start 11/14/16 at 10 :00 Escitalopram Oxalate (Lexapro) 10 mg DAILY GTB Last administered on 12/12/16 08 :58; Admin Dose 10 MG; Start 11/16/16 at 12:30 Lactobacillus Acidophilus (Florajen3 Capsule) 1 each TID PEG Last administered on 12/12/16 21:34; Admin Dose 1 EACH; Start 11/23/16 at 21:00 Calcium Carbonate (Tums) 500 mg TID PEG Last administered on 12/12/16 21:34; Admin Dose 500 MG; Start 11/23/16 at 21:00 Metoprolol Tartrate (Lopressor) 25 mg BID GTB Last administered on 12/12/16 08: 59; Admin Dose 25 MG; Start 11/23/16 at 21:00 Insulin Aspart (Novolog Insulin Pen) (Adult SC Insulin - Mild Algorithm)... Q4 SC Last administered on 12/06/16 21:11; Admin Dose 1 UNIT; Start 12/02/16 at 01 :00 Metoclopramide HCl (Reglan) 5 mg Q6 PEG Last administered on 12/13/16 06:42; Admin Dose 5 MG; Start 12/03/16 at 01:00 Amikacin Sulfate (Amikacin Iv Per Pharmacy) AMIKACIN PER PHARMACY NOTE XX ; Start 12/06/16 at 10:30 Aspirin (Aspirin) 81 mg MONWEDFRI GTB ; Start 12/09/16 at 09:00; Status Future Hold Clopidogrel Bisulfate 75 mg 75 mg MONWEDFRI GTB ; Start 12/09/16 at 09:00; Status Future Hold Vancomycin HCl 1.25 gm/Sodium Chloride 250 ml @ 83.333 mls/ hr Q96H IVPB Last administered on 12/09/16 17:43; Admin Dose 83.333 MLS/HR; Start 12/09/16 at 17:00 Ertapenem/Sodium Chloride (Invanz/NS) 100 ml @ 200 mls/hr Q24H IVPB Last administered on 12/12/16 17:34; Admin Dose 200 MLS/HR; Start 12/09/16 at 16:00 Lansoprazole (Prevacid) 30 mg DAILY@06 GTB Last administered on 12/13/16 06:42 ; Admin Dose 30 MG; Start 12/12/16 at 06:00 Insulin Glargine 26 unit 26 unit DAILY@08 SC ; Start 12/13/16 at 08:00 Dextrose/Sodium Chloride (D5-1/2ns) 1,000 ml @ 60 mls/hr [id number] IV ; Start 12/13/16 at 08:30 DAMIR MARTINEZ MD Dec 13, 2016 08:50
--- NOTE | 2016-12-13 08:51 | RADRPT ---
PROCEDURE: XR Abdomen. CLINICAL INDICATION: s/p emesis TECHNIQUE: AP abdomen x-ray. COMPARISON: None. FINDINGS: A gastrostomy tube is noted with prominent air in the stomach. A paucity of bowel gas is otherwise noted without evidence of bowel dilatation or air-fluid levels t o suggest a bowel obstruction. Surgical clips are identified in the left mid abdomen and left lower quadrant. No radiopaque renal/ureteral calculi are identified. Osseous structures are unremarkable. IMPRESSION: Prominent air filled stomach with a relative paucity of bowel gas distally. Correlation for gastric outlet obstruction is recommended. Gastrostomy tube. RPTAT: EE Physician Suzy Date Time Electronically viewed and signed by Physician Suzy on 12/13/2016 08:51 /
[2016-12-13] MEDS: METOPROLOL 25 MG TAB GTB SCH ×2 (09:00→21:00)
[2016-12-13] MEDS: ARTIFICIAL TEARS 15 ML OPH BOTH EYES SCH ×4 (10:16→21:00)
[2016-12-13] MEDS: DEXTROSE 5%-0.45% NACL 1,000 ML IV SCH (10:17)
[2016-12-13] MEDS: ESCITALOPRAM 10 MG TAB GTB SCH (10:17)
[2016-12-13] MEDS: CALCIUM CARBONATE 500 MG CHEW TAB PEG SCH ×3 (10:18→21:00)
[2016-12-13] MEDS: DORZOLAMIDE/TIMOLOL 10 ML OPH BOTH EYES SCH ×2 (10:18→21:00)
[2016-12-13] MEDS: L ACIDOPHIL/B LACTIS/B LONGUM CAPSULE PEG SCH ×3 (10:28→21:00)
[2016-12-13] MEDS: FLUCONAZOLE 100 MG TAB PO SCH (13:17)
--- NOTE | 2016-12-13 13:17 | CONS ---
Date/Time of Note Date/Time of Note DATE: 12/13/16 TIME: 13:02 Assessment/Plan Assessment/Plan Chief Complaint/Hosp Course SUBJECTIVE: No acute changes overnight. The patient is lying comfortably in bed. No fevers, TF on hold, KUB showed ?obstruction. MICROBIOLOGY: Repeat blood cultures growing gram-negative rods on December 08. ANTIMICROBIALS: The patient is on: 1. Vancomycin. 2. Amikacin. 3. Invanz INDWELLINGS: Left upper extremity PICC line. PHYSICAL EXAMINATION: GENERAL: This is a chronically ill-appearing, elderly woman who is in no distress. HEENT: Head atraumatic, normocephalic. Sclerae anicteric. Buccal mucosa dry. NECK: Supple, trachea midline. CHEST: Rise symmetrical. Breath sounds diminished to bases. HEART: S1, S2. ABDOMEN: Soft, bowel sounds present. EXTREMITIES: Without cyanosis. ASSESSMENT: 1. Sepsis with persistent bacteremia with a high possibility of line sepsis, s/ p PICC dc'd. 2. Polymicrobial urinary tract infection, repeat urine cx + C albicans. 3. End-stage renal disease, hemodialysis dependent. 4. 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 5. Dysphagia. 6. History of cardiopulmonary arrest. 7. Possible SBO PLAN: Clinically stable, will add Diflucan, continue other abx. Continue NPO, consider surgical and GI eval [facility] staff Problems: Consultation Date/Type/Reason Admit Date/Time Sep 20, 2016 at 19:21 Initial Consult Date 09/23/16 Type of Consultation: ID Referring Provider: ZANDRA ROBISON MD, [facility] Exam/Review of Systems Vital Signs Vitals Vital Signs Date Time Temp Pulse Resp B/P Pulse Ox O2 Delivery O2 Flow Rate FiO2 12/13/16 08:57 94 18 100 Nasal Cannula 2.0 12/13/16 08:37 98.2 129/60 12/12/16 01:07 21 Intake and Output 12/12/16 12/12/16 12/13/16 15:00 23:00 07:00 Intake Total 1080 ml Output Total 2500 ml 200 ml Balance -1420 ml -200 ml Results Result Diagram: 12/12/16 0450 12/13/16 0630 Results 24 hrs Laboratory Tests Test 12/12/16 17:07 12/12/16 21:27 12/13/16 01:46 12/13/16 05:56 Bedside Glucose 139 85 76 37 *L Test 12/13/16 06:17 12/13/16 06:30 12/13/16 06:40 12/13/16 07:11 Bedside Glucose 55 L 78 86 Glucose Level 48 #*L Test 12/13/16 07:31 12/13/16 09:56 12/13/16 10:38 12/13/16 10:59 Bedside Glucose 90 59 L 95 88 Medications Medications Current Medications Acetaminophen (Tylenol Liquid) 650 mg Q4H PRN NGT PAIN AND OR ELEVATED TEMP Last administered on 11/09/16 11:10; Admin Dose 650 MG; Start 09/21/16 at 02:00 Epoetin Raj (Epogen (Esrd)) 10,000 units TuThSa@17 SC Last administered on 12/12 17:35; Admin Dose 10,000 UNITS; Start 09/26/16 at 17:00 IV Flush (NS 10 ml) 10 ml PRN PRN IV IV PROTOCOL Last administered on 12/12/16 21:49; Admin Dose 10 ML; Start 09/26/16 at 17:30 Lactulose (Enulose) 20 gm BID PRN PO CONSTIPATION Last administered on 05:34; Admin Dose 20 GM; Start 10/23/16 at 10:30 Amylase/Lipase/ Protease (CREON (12k-38k-60k)) 3 cap Q6 NGT Last administered on 12/13/16 06:42; Admin Dose 3 CAP; Start 10/29/16 at 13:00 Latanoprost (Xalatan) 1 drop HS BOTH EYES Last administered on 12/11/16 21:38; Admin Dose 1 DROP; Start 10/31/16 at 21:00 Dorzolamide/ Timolol (Cosopt) 1 drop BID BOTH EYES Last administered on 10:18; Admin Dose 1 DROP; Start 10/31/16 at 21:00 Glucagon (Glucagen) 1 mg Q15M PRN IM DECREASED GLUCOSE Last administered on 12/13 06:04; Admin Dose 1 MG; Start 11/03/16 at 18:00 Ondansetron HCl (Zofran Inj) 4 mg Q4H PRN IV NAUSEA AND/OR VOMITING Last administered on 12/12/16 21:46; Admin Dose 4 MG; Start 11/04/16 at 23:00 Eye Lubricant (Artificial Tears Oph) 2 drop QID BOTH EYES Last administered on 12/13/16 10:16; Admin Dose 2 DROP; Start 11/07/16 at 09:00 Morphine Sulfate (morphine) 1 mg Q3H PRN IV pain Last administered on 12/10/16 08:16; Admin Dose 1 MG; Start 11/10/16 at 08:00 Miscellaneous Information 1 ea NOTE XX ; Start 11/14/16 at 10:00 Glucose (Glutose) 15 gm Q15M PRN PO DECREASED GLUCOSE; Start 11/14/16 at 10:00 Glucose (Glutose) 22.5 gm Q15M PRN PO DECREASED GLUCOSE; Start 11/14/16 at 10: 00 Dextrose (D50w Syringe) 25 ml Q15M PRN IV DECREASED GLUCOSE Last administered on 12/13/16 10:08; Admin Dose 25 ML; Start 11/14/16 at 10:00 Dextrose (D50w Syringe) 50 ml Q15M PRN IV DECREASED GLUCOSE Last administered on 12/07/16 05:29; Admin Dose 50 ML; Start 11/14/16 at 10:00 Glucose (Glutose) 15 gm Q15M PRN BUCCAL DECREASED GLUCOSE; Start 11/14/16 at 10 :00 Escitalopram Oxalate (Lexapro) 10 mg DAILY GTB Last administered on 12/13/16 10 :17; Admin Dose 10 MG; Start 11/16/16 at 12:30 Lactobacillus Acidophilus (Florajen3 Capsule) 1 each TID PEG Last administered on 12/13/16 10:28; Admin Dose 1 EACH; Start 11/23/16 at 21:00 Calcium Carbonate (Tums) 500 mg TID PEG Last administered on 12/13/16 10:18; Admin Dose 500 MG; Start 11/23/16 at 21:00 Metoprolol Tartrate (Lopressor) 25 mg BID GTB Last administered on 12/12/16 08: 59; Admin Dose 25 MG; Start 11/23/16 at 21:00 Insulin Aspart (Novolog Insulin Pen) (Adult SC Insulin - Mild Algorithm)... Q4 SC Last administered on 12/06/16 21:11; Admin Dose 1 UNIT; Start 12/02/16 at 01 :00 Metoclopramide HCl (Reglan) 5 mg Q6 PEG Last administered on 12/13/16 06:42; Admin Dose 5 MG; Start 12/03/16 at 01:00 Amikacin Sulfate (Amikacin Iv Per Pharmacy) AMIKACIN PER PHARMACY NOTE XX ; Start 12/06/16 at 10:30 Aspirin (Aspirin) 81 mg MONWEDFRI GTB ; Start 12/09/16 at 09:00; Status Future Hold Clopidogrel Bisulfate 75 mg 75 mg MONWEDFRI GTB ; Start 12/09/16 at 09:00; Status Future Hold Vancomycin HCl 1.25 gm/Sodium Chloride 250 ml @ 83.333 mls/ hr Q96H IVPB Last administered on 12/09/16 17:43; Admin Dose 83.333 MLS/HR; Start 12/09/16 at 17:00 Ertapenem/Sodium Chloride (Invanz/NS) 100 ml @ 200 mls/hr Q24H IVPB Last administered on 12/12/16 17:34; Admin Dose 200 MLS/HR; Start 12/09/16 at 16:00 Lansoprazole (Prevacid) 30 mg DAILY@06 GTB Last administered on 12/13/16 06:42 ; Admin Dose 30 MG; Start 12/12/16 at 06:00 Insulin Glargine 26 unit 26 unit DAILY@08 SC ; Start 12/13/16 at 08:00 Dextrose/Sodium Chloride (D5-1/2ns) 1,000 ml @ 60 mls/hr [id number] IV Last administered on 12/13/16 10:17; Admin Dose 60 MLS/HR; Start 12/13/16 at 08:30 Fluconazole (Diflucan) 100 mg DAILY PO ; Start 12/13/16 at 12:00 ROSALINA SIMS NP Dec 13, 2016 13:17
--- NOTE | 2016-12-13 14:56 | PN ---
Date/Time of Note Date/Time of Note DATE: 12/13/16 TIME: 14:50 Assessment/Plan VTE Prophylaxis VTE Prophylaxis Intervention: other (hep w/ dialysis) Lines/Catheters IV Catheter Type (from Nrs): Saline Lock Central line still needed: No Urinary Cath still in place: No Assessment/Plan Assessment/Plan 1. new SBO?--on ivf only 2. uti/ bacteremia--on atbx 3. arf/ anemia--dialysis 4. dm --fluctuant gluc due to feeding stops 5. cad 6. rld 7. depression ---renew GI consult ---hold PEG tube feed for now ---ivf ---cont atbx per ID ---only insulin sliding scale only ---dialysis per renal ---cont supportive cares ---poor guarded px Subjective 24 Hr Interval Summary Free Text/Dictation discouraged Exam/Review of Systems Vital Signs Vitals Vital Signs Date Time Temp Pulse Resp B/P Pulse Ox O2 Delivery O2 Flow Rate FiO2 12/13/16 14:25 85 12/13/16 13:42 18 100 Nasal Cannula 2.0 12/13/16 08:37 98.2 129/60 12/12/16 01:07 21 Intake and Output 12/12/16 12/12/16 12/13/16 15:00 23:00 07:00 Intake Total 1080 ml Output Total 2500 ml 200 ml Balance -1420 ml -200 ml Exam in bed, obese only ivf, peg feed stopped toes blue black dec bs bibasilar rr Results Result Diagram: 12/12/16 0450 12/13/16 0630 Results 24 hrs Laboratory Tests Test 12/12/16 17:07 12/12/16 21:27 12/13/16 01:46 12/13/16 05:56 Bedside Glucose 139 85 76 37 *L Test 12/13/16 06:17 12/13/16 06:30 12/13/16 06:40 12/13/16 07:11 Bedside Glucose 55 L 78 86 Glucose Level 48 #*L Test 12/13/16 07:31 12/13/16 09:56 12/13/16 10:38 12/13/16 10:59 Bedside Glucose 90 59 L 95 88 Test 12/13/16 13:16 Bedside Glucose 88 Medications Medications Current Medications Acetaminophen (Tylenol Liquid) 650 mg Q4H PRN NGT PAIN AND OR ELEVATED TEMP Last administered on 11/09/16 11:10; Admin Dose 650 MG; Start 09/21/16 at 02:00 Epoetin Raj (Epogen (Esrd)) 10,000 units TuThSa@17 SC Last administered on 12/12 17:35; Admin Dose 10,000 UNITS; Start 09/26/16 at 17:00 IV Flush (NS 10 ml) 10 ml PRN PRN IV IV PROTOCOL Last administered on 12/12/16 21:49; Admin Dose 10 ML; Start 09/26/16 at 17:30 Lactulose (Enulose) 20 gm BID PRN PO CONSTIPATION Last administered on 05:34; Admin Dose 20 GM; Start 10/23/16 at 10:30 Amylase/Lipase/ Protease (CREON (12k-38k-60k)) 3 cap Q6 NGT Last administered on 12/13/16 13:17; Admin Dose 3 CAP; Start 10/29/16 at 13:00 Latanoprost (Xalatan) 1 drop HS BOTH EYES Last administered on 12/11/16 21:38; Admin Dose 1 DROP; Start 10/31/16 at 21:00 Dorzolamide/ Timolol (Cosopt) 1 drop BID BOTH EYES Last administered on 10:18; Admin Dose 1 DROP; Start 10/31/16 at 21:00 Glucagon (Glucagen) 1 mg Q15M PRN IM DECREASED GLUCOSE Last administered on 12/13 06:04; Admin Dose 1 MG; Start 11/03/16 at 18:00 Ondansetron HCl (Zofran Inj) 4 mg Q4H PRN IV NAUSEA AND/OR VOMITING Last administered on 12/12/16 21:46; Admin Dose 4 MG; Start 11/04/16 at 23:00 Eye Lubricant (Artificial Tears Oph) 2 drop QID BOTH EYES Last administered on 12/13/16 10:16; Admin Dose 2 DROP; Start 11/07/16 at 09:00 Morphine Sulfate (morphine) 1 mg Q3H PRN IV pain Last administered on 12/10/16 08:16; Admin Dose 1 MG; Start 11/10/16 at 08:00 Miscellaneous Information 1 ea NOTE XX ; Start 11/14/16 at 10:00 Glucose (Glutose) 15 gm Q15M PRN PO DECREASED GLUCOSE; Start 11/14/16 at 10:00 Glucose (Glutose) 22.5 gm Q15M PRN PO DECREASED GLUCOSE; Start 11/14/16 at 10: 00 Dextrose (D50w Syringe) 25 ml Q15M PRN IV DECREASED GLUCOSE Last administered on 12/13/16 10:08; Admin Dose 25 ML; Start 11/14/16 at 10:00 Dextrose (D50w Syringe) 50 ml Q15M PRN IV DECREASED GLUCOSE Last administered on 12/07/16 05:29; Admin Dose 50 ML; Start 11/14/16 at 10:00 Glucose (Glutose) 15 gm Q15M PRN BUCCAL DECREASED GLUCOSE; Start 11/14/16 at 10 :00 Escitalopram Oxalate (Lexapro) 10 mg DAILY GTB Last administered on 12/13/16 10 :17; Admin Dose 10 MG; Start 11/16/16 at 12:30 Lactobacillus Acidophilus (Florajen3 Capsule) 1 each TID PEG Last administered on 12/13/16 13:17; Admin Dose 1 EACH; Start 11/23/16 at 21:00 Calcium Carbonate (Tums) 500 mg TID PEG Last administered on 12/13/16 13:16; Admin Dose 500 MG; Start 11/23/16 at 21:00 Metoprolol Tartrate (Lopressor) 25 mg BID GTB Last administered on 12/12/16 08: 59; Admin Dose 25 MG; Start 11/23/16 at 21:00 Insulin Aspart (Novolog Insulin Pen) (Adult SC Insulin - Mild Algorithm)... Q4 SC Last administered on 12/06/16 21:11; Admin Dose 1 UNIT; Start 12/02/16 at 01 :00 Metoclopramide HCl (Reglan) 5 mg Q6 PEG Last administered on 12/13/16 13:21; Admin Dose 5 MG; Start 12/03/16 at 01:00 Amikacin Sulfate (Amikacin Iv Per Pharmacy) AMIKACIN PER PHARMACY NOTE XX ; Start 12/06/16 at 10:30 Aspirin (Aspirin) 81 mg MONWEDFRI GTB ; Start 12/09/16 at 09:00; Status Future Hold Clopidogrel Bisulfate 75 mg 75 mg MONWEDFRI GTB ; Start 12/09/16 at 09:00; Status Future Hold Vancomycin HCl 1.25 gm/Sodium Chloride 250 ml @ 83.333 mls/ hr Q96H IVPB Last administered on 12/09/16 17:43; Admin Dose 83.333 MLS/HR; Start 12/09/16 at 17:00 Ertapenem/Sodium Chloride (Invanz/NS) 100 ml @ 200 mls/hr Q24H IVPB Last administered on 12/12/16 17:34; Admin Dose 200 MLS/HR; Start 12/09/16 at 16:00 Lansoprazole (Prevacid) 30 mg DAILY@06 GTB Last administered on 12/13/16 06:42 ; Admin Dose 30 MG; Start 12/12/16 at 06:00 Insulin Glargine 26 unit 26 unit DAILY@08 SC ; Start 12/13/16 at 08:00 Dextrose/Sodium Chloride (D5-1/2ns) 1,000 ml @ 60 mls/hr [id number] IV Last administered on 12/13/16 10:17; Admin Dose 60 MLS/HR; Start 12/13/16 at 08:30 Fluconazole (Diflucan) 100 mg DAILY PO Last administered on 12/13/16 13:17; Admin Dose 100 MG; Start 12/13/16 at 12:00 SHAMA LOPEZ MD Dec 13, 2016 14:56
[2016-12-13 15:17] LABS: ADD SCAN DIFF NO
[2016-12-13 15:20] LABS: BASOPHILS % 0.1 % (0.0-2.0); EOSINOPHILS # 0.2 10^3/ul (0.0-0.5); EOSINOPHILS % 1.2 % (0.0-7.0); HEMATOCRIT 28.6 % (37.0-47.0); HEMOGLOBIN 8.3 g/dl (12.0-16.0); LYMPHOCYTES # 1.3 10^3/ul (0.8-2.9); MEAN CORPUSCULAR HEMOGLOBIN 27.1 pg (29.0-33.0); MEAN CORPUSCULAR VOLUME 93.5 fl (82.0-101.0); MEAN PLATELET VOLUME 9.4 fl (7.4-10.4); MONOCYTE # 0.9 10^3/ul (0.3-0.9); MONOCYTES % 6.6 % (0.0-11.0); NEUTROPHIL # 11.7 10^3/ul (1.6-7.5); NEUTROPHILS % 81.9 % (39.0-77.0); NUCLEATED RED BLOOD CELLS% 0.1 /100WBC (0.0-0.0); PLATELET COUNT 430 10^3/UL (140-415); RED BLOOD COUNT 3.06 10^6/ul (4.20-5.40); RED CELL DISTRIBUTION WIDTH 17.7 % (11.5-14.5); WHITE BLOOD COUNT 14.3 10^3/ul (4.8-10.8)
[2016-12-13] MEDS: ERTAPENEM SODIUM 0.5 GM in SOD CHLORIDE 0.9% 100 ML IVPB SCH ×2 (15:30→17:16)
[2016-12-13] MEDS: SOD CHLORIDE 0.9% IVPB SCH (15:34)
[2016-12-13] MEDS: AMIKACIN IVPB SCH (15:34)
[2016-12-13 15:36] LABS: PROTIME 13.2 Sec (12.2-14.2)
[2016-12-13 15:43] LABS: CALCIUM 8.8 mg/dl (8.4-10.2); CREATININE 1.55 mg/dl (0.44-1.00); POTASSIUM 3.5 mmol/L (3.5-5.1)
[2016-12-13 17:19] LABS: AMYLASE 59 U/L (11-123)
--- NOTE | 2016-12-13 17:32 | RADRPT ---
PROCEDURE: XR Abdomen. CLINICAL INDICATION: Abdominal pain and distension, possible ileus. TECHNIQUE: AP abdomen x-ray. COMPARISON: December 12, 2016 FINDINGS: Gastrostomy tube has its distal end over the stomach. The stomach is distended with a [id number] arge amount of gas. The remainder of the bowel appears decompressed. No dilated loops of small bow el are observed. No organomegaly is observed. Surgical clips are identified in the left pelvis. De generative changes are seen in the hips and spine. IMPRESSION: Gastrostomy tube with its distal end over the stomach. Stomach that continues to be distended with a [id number] amount of gas. Nonspecific bowel gas pattern. Overall appearance is unchanged from prior exam. If further characterization is needed CT should be considered. RPTAT: AA .Ovidio Otoole MD, Date Time Electronically viewed and signed by .Ovidio Otoole MD, on 12/13/2016 17:32 .P/
[2016-12-13] MEDS: VANCOMYCIN 1.25 GM in SOD CHLORIDE 0.9% 250 ML IVPB SCH (18:55)
[2016-12-13] MEDS: LATANOPROST 0.005% 2.5 ML OPH BOTH EYES SCH (21:00)
--- NOTE | 2016-12-13 21:14 | RADRPT ---
PROCEDURE: CT scan of the abdomen and pelvis without IV contrast. CLINICAL INDICATION: 38-year-old female with history of ileus. TECHNIQUE: Thin section axial, coronal and sagittal images were performed through the abdomen and pelvis without contrast. Radiation Dose: CTDI: 45 and DLP: 630 One or more of the following dose reduction techniques were used: - Automated exposure control. - Adjustment of the mA and/or kV according to patient size. Use of iterative reconstruction technique. COMPARISON: Chest x-ray 08/09/2016 06:18 a.m. FINDINGS: Soft tissues: The soft tissues are generous. There is anasarca. There is a midline umbilical hernia which contains fat. It measures up to 4.2 cm sagittal. The neck of the hernia measures up to 1.8 c m in the sagittal plane. There is diastasis rectus. Lungs and pleural spaces: 810 mm calcified granuloma is identified in the right lower lobe. There i s a consolidative infiltrate in the right lower lobe with air bronchograms. There is compressive at electasis in the periphery of the left lower lobe. There are bilateral pleural effusions. There is plate-like atelectasis in the lingula. There is a pleural-based density in the ventral lingula whi ch is likely atelectasis. A underline nodule is not excluded. The area measures about 5.3 mm of ov erall in size and no additional follow-up is warranted. Heart: The heart is normal in size. The liver, common bile duct and gallbladder: The liver is unremarkable. There is a large amount of pericholecystic fluid. Ultrasound is recommended for further evaluation of this finding. There are poorly visualized nodular densities within the lumen of the gallbladder which could be the result of tumefaction sludge, a mass or poorly visualized noncalcified gallstones.There is a 2.7 x 3.6 x 1.3 cm subcapsular fluid collection along the lateral inferior aspect of the right lobe of the liver. Gastrointestinal: The stomach is distended with fluid. A percutaneous gastrostomy tube is identified which appears to rest in the subcutaneous tissues with the distal tip of the tube projecting into t he stomach. Oral contrast can be administered to confirm proper positioning needed. There is no ev idence of a hiatal hernia. The small bowel loops have a normal caliber. There is some fluid in the left pericolic gutter. There is fecal material in the sigmoid colon and rectal ampulla. There is n o evidence of diverticulosis or diverticulitis. Pancreas: The pancreas is small and atrophic. No pancreatic mass is identified. The extrahepatic c ommon bile duct is normal. Kidneys, bladder and adrenal glands : The adrenal glands are normal. The kidneys are normal. A 2.8 cm parapelvic cyst is is noted in the lower middle third of the left kidney. A 1.4 cm cyst is noted in the lateral upper portion of the lower third of the left kidney. Spleen: There are clips in the splenic bed. The spleen is surgically removed. Lymph nodes: No enlarged retroperitoneal, mesenteric, periportal or pelvic sidewall lymph nodes are identified. Reproductive system and pelvis : The uterus is anteflexed and unremarkable some faint calcifications noted along the surface of the uterus. No abnormal adnexal mass is noted. There is trace fluid in the pelvis. Bony elements: There are degenerative changes involving the margins of both hips and involving the t horacic and lumbosacral spine. No acute bony fracture or bone metastasis is identified. Vasculature: There are vascular calcifications in the abdominal aorta, common iliac arteries and com mon femoral arteries. IMPRESSION: 1. There are bilateral pleural effusions with consolidative infiltrates in the right lower lobe. Th ere is a 2 mm calcified granuloma in the right lower lobe. 2. There is a small left pleural effusion with compressive atelectasis in the left lower lobe. The re is a 5.3 mm nodular density abutting the pleural surface in the ventral lingula which may be the result of either a pulmonary nodule or rounded atelectasis. No additional follow-up is needed. 3. There is a large amount of pericholecystic fluid with distension of the gallbladder. This findi ng may be the result of acute cholecystitis. Further evaluation with ultrasound can be considered i f clinically indicated. Tumefaction sludge, poorly visualized gallstones or soft tissue masses are suspected within the lumen of the distended gallbladder. 4. Anasarca. 5. A percutaneous gastrostomy pain is identified in the subcutaneous tissues over the left anterior abdominal wall. Only the tip of the gastrostomy tube projects into the stomach. Proper positioning cannot be confirmed. 6. Status post splenectomy. 7. 2.8 cm left parapelvic cyst an adjacent 1.4 cm simple cyst lateral upper portion lower third lef t kidney. 8. Atherosclerotic vascular disease. 9. Osteoarthritis of the thoracic and lumbosacral spine. RPTAT:AAJJ Jasson Lee Physician Date Time Electronically viewed and signed by Jasson Lee Physician on 12/13/2016 21:14 CELESTINO/
[2016-12-14] VITALS (12 sets, daily range): BP systolic 89–110; BP diastolic 45–60; PULSE 83–92; RESP 18–20
[2016-12-14] MEDS: INSULIN ASPART [NOVOLOG] 3 ML PEN SC SCH ×6 (01:00→21:00)
[2016-12-14] MEDS: DEXTROSE 5%-0.45% NACL 1,000 ML IV SCH ×2 (01:10→17:49)
[2016-12-14] MEDS: LEVALBUTEROL (NEB) 1.25 MG/0.5 ML AMP HHN SCH ×4 (01:38→20:16)
[2016-12-14] MEDS: IPRATROPIUM (NEB) 0.5 MG/2.5 ML AMP HHN SCH ×4 (01:38→20:16)
[2016-12-14 05:11] LABS: ABNORMAL IP MESSAGE 1; BASOPHILS % 0.1 % (0.0-2.0); EOSINOPHILS # 0.2 10^3/ul (0.0-0.5); EOSINOPHILS % 1.4 % (0.0-7.0); HEMATOCRIT 28.1 % (37.0-47.0); HEMOGLOBIN 7.9 g/dl (12.0-16.0); LYMPHOCYTES # 0.9 10^3/ul (0.8-2.9); LYMPHOCYTES % 7.1 % (15.0-51.0); MEAN CORPUSCULAR HEMOGLOBIN 26.3 pg (29.0-33.0); MEAN CORPUSCULAR HGB CONC 28.1 g/dl (32.0-37.0); MEAN CORPUSCULAR VOLUME 93.7 fl (82.0-101.0); MEAN PLATELET VOLUME 9.2 fl (7.4-10.4); MONOCYTES % 7.9 % (0.0-11.0); NEUTROPHIL # 10.7 10^3/ul (1.6-7.5); NEUTROPHILS % 82.2 % (39.0-77.0); NUCLEATED RED BLOOD CELLS% 0.2 /100WBC (0.0-0.0); PLATELET COUNT 408 10^3/UL (140-415); RED CELL DISTRIBUTION WIDTH 18.1 % (11.5-14.5)
[2016-12-14 05:26] LABS: ADD SCAN DIFF HOLD/SCAN
[2016-12-14 05:38] LABS: CALCIUM 8.8 mg/dl (8.4-10.2); CREATININE 1.8 mg/dl (0.44-1.00); POTASSIUM 3.6 mmol/L (3.5-5.1)
[2016-12-14] MEDS: METOCLOPRAMIDE 10 MG TAB PEG SCH ×3 (06:00→18:00)
[2016-12-14] MEDS: CREON (12k-38k-60k) 1 CAP NGT SCH ×3 (06:00→18:00)
[2016-12-14] MEDS: LANSOPRAZOLE 30 MG CAP GTB SCH (06:00)
[2016-12-14] MEDS: INSULIN GLARGINE [LANtus] 3 ML PEN SC SCH (08:00)
--- NOTE | 2016-12-14 08:41 | CONS ---
Date/Time of Note Date/Time of Note DATE: 12/14/16 TIME: 08:37 Assessment/Plan Assessment/Plan Problems: (1) ESRD (end stage renal disease) on dialysis Comment: for HD today (2) Anemia in ESRD (end-stage renal disease) Comment: will give 2U PRBC on HD today (3) Abdominal pain Comment: ?acute myron?... now NPO, on ABX... WBC coming down (4) Sepsis Comment: was GNR... on abx per ID... leukocytosis improving Consultation Date/Type/Reason Admit Date/Time Sep 20, 2016 at 19:21 Initial Consult Date 09/23/16 Type of Consultation: neph Referring Provider: ZANDRA ROBISON MD, [facility] 24 HR Interval Summary Free Text/Dictation quiet resting in bed... no emesis this am Exam/Review of Systems Vital Signs Vitals Vital Signs Date Time Temp Pulse Resp B/P Pulse Ox O2 Delivery O2 Flow Rate FiO2 12/14/16 07:43 98.0 90 20 110/60 99 12/14/16 01:39 2.0 12/14/16 01:39 Nasal Cannula 12/12/16 01:07 21 Intake and Output 12/13/16 12/13/16 12/14/16 15:00 23:00 07:00 Intake Total 1142 ml Output Total 2800 ml Balance -1658 ml Exam Constitutional: non-verbal Eyes: nl conjunctiva Neck: supple Respiratory: clear to auscultation Cardiovascular: regular rate and rhythm Gastrointestinal: tender (to palp RUQ) Extremities: normal pulses Results Result Diagram: 12/14/16 0450 12/14/16 0450 Results 24 hrs Laboratory Tests Test 12/13/16 09:56 12/13/16 10:38 12/13/16 10:59 12/13/16 13:16 Bedside Glucose 59 L 95 88 88 Test 12/13/16 14:55 12/13/16 21:35 12/14/16 01:09 12/14/16 04:50 White Blood Count 14.3 #H 13.0 H Red Blood Count 3.06 L 3.00 L Hemoglobin 8.3 L 7.9 L Hematocrit 28.6 L 28.1 L Mean Corpuscular Volume 93.5 93.7 Mean Corpuscular Hemoglobin 27.1 L 26.3 L Mean Corpuscular Hemoglobin Concent 29.0 L 28.1 L Red Cell Distribution Width 17.7 H 18.1 H Platelet Count 430 H 408 Mean Platelet Volume 9.4 9.2 Neutrophils % 81.9 H 82.2 H Lymphocytes % 9.0 L 7.1 L Monocytes % 6.6 7.9 Eosinophils % 1.2 1.4 Basophils % 0.1 0.1 Nucleated Red Blood Cells % 0.1 H 0.2 H Neutrophils # 11.7 H 10.7 H Lymphocytes # 1.3 0.9 Monocytes # 0.9 1.0 H Eosinophils # 0.2 0.2 Basophils # 0.0 0.0 Nucleated Red Blood Cells # 0.0 0.0 Prothrombin Time 13.2 Prothrombin Time Ratio 1.0 INR International Normalized Ratio 1.00 Sodium Level 141 141 Potassium Level 3.5 3.6 Chloride Level 105 107 Carbon Dioxide Level 30 27 Anion Gap 10 11 Blood Urea Nitrogen 36 #H 38 H Creatinine 1.55 H 1.80 H Glucose Level 98 # 81 Calcium Level 8.8 8.8 Amylase Level 59 Lipase 72 Bedside Glucose 102 82 Test 12/14/16 05:34 Bedside Glucose 92 Medications Medications Current Medications Acetaminophen (Tylenol Liquid) 650 mg Q4H PRN NGT PAIN AND OR ELEVATED TEMP Last administered on 11/09/16 11:10; Admin Dose 650 MG; Start 09/21/16 at 02:00 Epoetin Raj (Epogen (Esrd)) 10,000 units TuThSa@17 SC Last administered on 12/12 17:35; Admin Dose 10,000 UNITS; Start 09/26/16 at 17:00 IV Flush (NS 10 ml) 10 ml PRN PRN IV IV PROTOCOL Last administered on 12/12/16 21:49; Admin Dose 10 ML; Start 09/26/16 at 17:30 Lactulose (Enulose) 20 gm BID PRN PO CONSTIPATION Last administered on 05:34; Admin Dose 20 GM; Start 10/23/16 at 10:30 Amylase/Lipase/ Protease (CREON (12k-38k-60k)) 3 cap Q6 NGT Last administered on 12/13/16 13:17; Admin Dose 3 CAP; Start 10/29/16 at 13:00 Latanoprost (Xalatan) 1 drop HS BOTH EYES Last administered on 12/11/16 21:38; Admin Dose 1 DROP; Start 10/31/16 at 21:00 Dorzolamide/ Timolol (Cosopt) 1 drop BID BOTH EYES Last administered on 10:18; Admin Dose 1 DROP; Start 10/31/16 at 21:00 Glucagon (Glucagen) 1 mg Q15M PRN IM DECREASED GLUCOSE Last administered on 12/13 06:04; Admin Dose 1 MG; Start 11/03/16 at 18:00 Ondansetron HCl (Zofran Inj) 4 mg Q4H PRN IV NAUSEA AND/OR VOMITING Last administered on 12/12/16 21:46; Admin Dose 4 MG; Start 11/04/16 at 23:00 Eye Lubricant (Artificial Tears Oph) 2 drop QID BOTH EYES Last administered on 12/13/16 10:16; Admin Dose 2 DROP; Start 11/07/16 at 09:00 Morphine Sulfate (morphine) 1 mg Q3H PRN IV pain Last administered on 12/10/16 08:16; Admin Dose 1 MG; Start 11/10/16 at 08:00 Miscellaneous Information 1 ea NOTE XX ; Start 11/14/16 at 10:00 Glucose (Glutose) 15 gm Q15M PRN PO DECREASED GLUCOSE; Start 11/14/16 at 10:00 Glucose (Glutose) 22.5 gm Q15M PRN PO DECREASED GLUCOSE; Start 11/14/16 at 10: 00 Dextrose (D50w Syringe) 25 ml Q15M PRN IV DECREASED GLUCOSE Last administered on 12/13/16 10:08; Admin Dose 25 ML; Start 11/14/16 at 10:00 Dextrose (D50w Syringe) 50 ml Q15M PRN IV DECREASED GLUCOSE Last administered on 12/07/16 05:29; Admin Dose 50 ML; Start 11/14/16 at 10:00 Glucose (Glutose) 15 gm Q15M PRN BUCCAL DECREASED GLUCOSE; Start 11/14/16 at 10 :00 Escitalopram Oxalate (Lexapro) 10 mg DAILY GTB Last administered on 12/13/16 10 :17; Admin Dose 10 MG; Start 11/16/16 at 12:30 Lactobacillus Acidophilus (Florajen3 Capsule) 1 each TID PEG Last administered on 12/13/16 13:17; Admin Dose 1 EACH; Start 11/23/16 at 21:00 Calcium Carbonate (Tums) 500 mg TID PEG Last administered on 12/13/16 13:16; Admin Dose 500 MG; Start 11/23/16 at 21:00 Metoprolol Tartrate (Lopressor) 25 mg BID GTB Last administered on 12/12/16 08: 59; Admin Dose 25 MG; Start 11/23/16 at 21:00 Insulin Aspart (Novolog Insulin Pen) (Adult SC Insulin - Mild Algorithm)... Q4 SC Last administered on 12/06/16 21:11; Admin Dose 1 UNIT; Start 12/02/16 at 01 :00 Metoclopramide HCl (Reglan) 5 mg Q6 PEG Last administered on 12/13/16 13:21; Admin Dose 5 MG; Start 12/03/16 at 01:00 Amikacin Sulfate (Amikacin Iv Per Pharmacy) AMIKACIN PER PHARMACY NOTE XX ; Start 12/06/16 at 10:30 Aspirin (Aspirin) 81 mg MONWEDFRI GTB ; Start 12/09/16 at 09:00; Status Future Hold Clopidogrel Bisulfate 75 mg 75 mg MONWEDFRI GTB ; Start 12/09/16 at 09:00; Status Future Hold Vancomycin HCl 1.25 gm/Sodium Chloride 250 ml @ 83.333 mls/ hr Q96H IVPB Last administered on 12/13/16 18:55; Admin Dose 83.333 MLS/HR; Start 12/09/16 at 17:00 Ertapenem/Sodium Chloride (Invanz/NS) 100 ml @ 200 mls/hr Q24H IVPB Last administered on 12/13/16 17:16; Admin Dose 200 MLS/HR; Start 12/09/16 at 16:00 Lansoprazole (Prevacid) 30 mg DAILY@06 GTB Last administered on 12/13/16 06:42 ; Admin Dose 30 MG; Start 12/12/16 at 06:00 Insulin Glargine (Lantus) 26 unit DAILY@08 SC ; Start 12/13/16 at 08:00 Fluconazole (Diflucan) 100 mg DAILY PO Last administered on 12/13/16 13:17; Admin Dose 100 MG; Start 12/13/16 at 12:00 ROGELIO FELIX MD Dec 14, 2016 08:41
[2016-12-14] MEDS: DORZOLAMIDE/TIMOLOL 10 ML OPH BOTH EYES SCH ×2 (09:00→21:00)
[2016-12-14] MEDS: ESCITALOPRAM 10 MG TAB GTB SCH (09:00)
[2016-12-14] MEDS: ARTIFICIAL TEARS 15 ML OPH BOTH EYES SCH ×4 (09:00→21:00)
[2016-12-14] MEDS: FLUCONAZOLE 100 MG TAB PO SCH (09:00)
[2016-12-14] MEDS: L ACIDOPHIL/B LACTIS/B LONGUM CAPSULE PEG SCH ×3 (09:00→21:00)
[2016-12-14] MEDS: CALCIUM CARBONATE 500 MG CHEW TAB PEG SCH ×3 (09:00→21:00)
[2016-12-14] MEDS: METOPROLOL 25 MG TAB GTB SCH ×2 (09:00→21:00)
[2016-12-14] MEDS ORDERED: SOD CHLORIDE 0.9% 250 ML IV* ONE (10:07)
--- NOTE | 2016-12-14 12:44 | PN ---
DATE: 12/14/2016 SUBJECTIVE: The patient is resting comfortably. No acute changes. Hemoglobin is lower at 7.9. CA T scan of the abdomen demonstrates distention of the gallbladder, with a possibility of cholecystiti s. OBJECTIVE: VITAL SIGNS: Temperature is 98.0, pulse is 85, respirations 18, blood pressure is 110/60, pulse ox is 100 on 2 liters nasal cannula. CARDIOVASCULAR: Regular rate. LUNGS: No wheeze, no rhonchi. ABDOMEN: Soft. No palpable masses. LABORATORY TESTS: Demonstrate a WBC of 13, hemoglobin 7.9, platelets 408. Potassium 3.6, with a cr eatinine of 1.8. On 12/13/2016 an abdominal CAT scan demonstrated bilateral pleural effusions, large pericholecystic fluid, with distention of the gallbladder, which may be a result of acute cholecyst itis. ASSESSMENT AND PLAN 1. Abdominal distention and pain. GI was reconsulted. Dr. Helm had ordered a CAT scan of the ab domen, which did demonstrate the possibility of a cholecystitis. Call in for him to determine if thi s is an acute process and if this is necessary for surgery. WBC continues to decrease. Currently t he PEG tube feedings are on hold. 2. Sepsis with bacteremia. WBC continues to improve. ID is following. 3. Dialysis with end-stage renal disease. The patient gets hemodialysis on a regular basis. Jonny stewart plan is to be transfused 2 units of packed red blood cells on this current hemodialysis. Dictated By: SHAW CARABALLO/JERROD Conf#: [id number] DID#: [id number]
[2016-12-14 13:38] LABS: AMYLASE 49 U/L (11-123)
[2016-12-14] MEDS: ALBUMIN HUMAN 25% 100 ML IV PRN (15:01)
[2016-12-14] MEDS ORDERED: DIATR MEGLU/DIATRIZOATE SODIUM 120 ML BTL ONE (15:59)
[2016-12-14 16:24] LABS: ALBUMIN 2.7 g/dl (3.3-4.9); TOTAL PROTEIN 5.8 g/dl (6.1-8.1)
[2016-12-14] MEDS: ERTAPENEM SODIUM 0.5 GM in SOD CHLORIDE 0.9% 100 ML IVPB SCH (17:53)
--- NOTE | 2016-12-14 17:57 | RADRPT ---
PROCEDURE: XR Abdomen. CLINICAL INDICATION: G tube placement TECHNIQUE: AP abdomen x-ray with injection of contrast.. COMPARISON: None. FINDINGS: There is a percutaneous gastrostomy tube in the left upper quadrant. Injected contrast seen within the fundus of the stomach without evidence of contrast extravasation or leakage. There is mild juan carlos sunitha distension. There is no small bowel dilatation or obstruction. There is no evidence of free ai r.. The osseous structures are unremarkable. IMPRESSION: Percutaneous gastrostomy tube in place with injected contrast in the fundus of the stomach. No evidence of contrast extravasation or leakage. RPTAT: QQ .Reji Larsen MD, Date Time Electronically viewed and signed by .Reji Larsen MD, on 12/14/2016 17:57 .L/
[2016-12-14] MEDS: AMIKACIN IVPB SCH (17:58)
[2016-12-14] MEDS: SOD CHLORIDE 0.9% IVPB SCH (17:58)
[2016-12-14] MEDS: EPOETIN 10000 UNITS/1 ML INJ (ESRD) SC SCH (18:18)
[2016-12-14] MEDS: LATANOPROST 0.005% 2.5 ML OPH BOTH EYES SCH (21:00)
[2016-12-15] MEDS: INSULIN ASPART [NOVOLOG] 3 ML PEN SC SCH ×6 (01:00→21:00)
[2016-12-15] MEDS: LEVALBUTEROL (NEB) 1.25 MG/0.5 ML AMP HHN SCH ×4 (01:42→20:00)
[2016-12-15] MEDS: IPRATROPIUM (NEB) 0.5 MG/2.5 ML AMP HHN SCH ×4 (01:42→20:00)
[2016-12-15] MEDS: DEXTROSE 5%-0.45% NACL 1,000 ML IV SCH ×2 (02:48→17:06)
--- NOTE | 2016-12-15 03:37 | PN ---
DATE: 12/14/2016 INFECTIOUS DISEASE PROGRESS NOTE SUBJECTIVE: No acute changes. No fevers. The patient is lethargic, lying comfortably in bed. Tub e feedings on hold. WBC today is 13, H and H 7.9 and 28.1, platelets 408, neutrophils 82.2. MICROBIOLOGY: Blood cultures from 12/12 remain negative. DIAGNOSTICS: CT of the abdomen and pelvis from yesterday revealed bilateral pleural effusion with c onsolidative infiltrates in the right lower lobe and 2 mm granuloma in the right lower lobe, s mall left pleural effusion with compressive atelectasis in the left lower lobe, large amount of nuris cholecystic fluid with distention of the gallbladder. Findings could be a result of acute cholecyst itis, anasarca. ANTIMICROBIALS: Patient is on vancomycin, Invanz, amikacin and fluconazole. Urine culture on 12/11 grew Erica albicans. INDWELLINGS: The patient has right chest Perm-A-Cath, PEG. PHYSICAL EXAMINATION: GENERAL: This is a chronically ill-appearing, elderly woman who is in no distress. HEENT: Head atraumatic, normocephalic. Sclerae anicteric. Buccal mucosa dry. NECK: Supple. CHEST: Rise symmetrical. Breath sounds diminished to bases. HEART: S1, S2. ABDOMEN: Soft. Bowel tones present. EXTREMITIES: With trace edema. Bilateral gangrene of the toes. ASSESSMENT: 1. Sepsis with polymicrobial bacteremia, status post PICC line discontinued, patient still has Perm -A-Cath. 2. Polymicrobial urinary tract infection with urine culture on 12/02, grew Escherichia coli, entero coccus species and Klebsiella extended-spectrum beta-lactamase, repeat urine culture growing Erica albicans. Patient remains on Diflucan day #2. 3. Status post nausea and vomiting with a questionable cholecystitis per CT of the abdomen and pelv is. 4. Healthcare-associated pneumonia. 5. End-stage renal disease, hemodialysis dependent. 6. History of cardiopulmonary arrest. 7. Bilateral lower extremity gangrene. PLAN: The patient remains clinically stable, so far afebrile, white blood cell count tracing down a nd she is covered with appropriate antimicrobials. Consider surgical and gastroenterology evaluatio n. Dictated By: ROSALINA SIMS [employer] LAYOUT DESIGNER for NOEMI LARA/JERROD Conf#: [id number] [facility]#: [id number]
[2016-12-15] MEDS: LANSOPRAZOLE 30 MG CAP GTB SCH (04:38)
[2016-12-15] MEDS: METOCLOPRAMIDE 10 MG TAB PEG SCH ×4 (04:41→18:00)
[2016-12-15] MEDS: CREON (12k-38k-60k) 1 CAP NGT SCH ×4 (04:41→18:00)
[2016-12-15 05:13] LABS: ADD SCAN DIFF NO
[2016-12-15 05:26] LABS: BASOPHILS % 0.3 % (0.0-2.0); EOSINOPHILS # 0.1 10^3/ul (0.0-0.5); EOSINOPHILS % 1.4 % (0.0-7.0); HEMATOCRIT 33.1 % (37.0-47.0); HEMOGLOBIN 10.3 g/dl (12.0-16.0); LYMPHOCYTES # 1.1 10^3/ul (0.8-2.9); LYMPHOCYTES % 11.1 % (15.0-51.0); MEAN CORPUSCULAR HEMOGLOBIN 28.2 pg (29.0-33.0); MEAN CORPUSCULAR HGB CONC 31.1 g/dl (32.0-37.0); MEAN CORPUSCULAR VOLUME 90.7 fl (82.0-101.0); MEAN PLATELET VOLUME 9.4 fl (7.4-10.4); MONOCYTE # 0.9 10^3/ul (0.3-0.9); MONOCYTES % 8.7 % (0.0-11.0); NEUTROPHIL # 7.5 10^3/ul (1.6-7.5); NUCLEATED RED BLOOD CELLS% 0.3 /100WBC (0.0-0.0); PLATELET COUNT 323 10^3/UL (140-415); RED BLOOD COUNT 3.65 10^6/ul (4.20-5.40); RED CELL DISTRIBUTION WIDTH 16.8 % (11.5-14.5); WHITE BLOOD COUNT 9.8 10^3/ul (4.8-10.8)
[2016-12-15 07:50] VITALS: BP 101/52; RESP 19
--- NOTE | 2016-12-15 08:43 | CONS ---
Date/Time of Note Date/Time of Note DATE: 12/15/16 TIME: 08:39 Assessment/Plan Assessment/Plan Problems: (1) Cholecystitis Comment: by CT criteria...WBC now normalized...? GI/Surg f/u?... on abx and NPO (2) ESRD (end stage renal disease) on dialysis Comment: [facility] HD... next RX to be Tues (3) Anemia in ESRD (end-stage renal disease) Comment: got 2U PRBC w HD yesterday... HgB now up to 10.3 (4) Sepsis Comment: controlled w abx...? GB source? Consultation Date/Type/Reason Admit Date/Time Sep 20, 2016 at 19:21 Initial Consult Date 09/23/16 Type of Consultation: neph Referring Provider: ZANDRA ROBISON MD, [facility] 24 HR Interval Summary Free Text/Dictation pt asx, but now still NPO Exam/Review of Systems Vital Signs Vitals Vital Signs Date Time Temp Pulse Resp B/P Pulse Ox O2 Delivery O2 Flow Rate FiO2 12/15/16 08:00 82 20 100 Nasal Cannula 3.0 12/15/16 07:50 97.5 101/52 12/12/16 01:07 21 Intake and Output 12/14/16 12/14/16 12/15/16 15:00 23:00 07:00 Intake Total 1250 ml 901.52 ml Output Total 3000 ml Balance -1750 ml 901.52 ml Exam Constitutional: non-verbal Head: normocephalic Eyes: nl conjunctiva Neck: supple Respiratory: clear to auscultation Cardiovascular: regular rate and rhythm Gastrointestinal: tender (sl RUQ) Extremities: normal pulses (catheter in chest) Results Result Diagram: 12/15/16 0425 12/14/16 0450 Results 24 hrs Laboratory Tests Test 12/14/16 10:51 12/14/16 15:13 12/14/16 18:01 12/14/16 20:44 Bedside Glucose 85 90 92 85 Test 12/15/16 04:25 12/15/16 05:06 12/15/16 06:29 White Blood Count 9.8 # Red Blood Count 3.65 #L Hemoglobin 10.3 #L Hematocrit 33.1 L Mean Corpuscular Volume 90.7 Mean Corpuscular Hemoglobin 28.2 L Mean Corpuscular Hemoglobin Concent 31.1 L Red Cell Distribution Width 16.8 H Platelet Count 323 # Mean Platelet Volume 9.4 Neutrophils % 77.0 Lymphocytes % 11.1 L Monocytes % 8.7 Eosinophils % 1.4 Basophils % 0.3 Nucleated Red Blood Cells % 0.3 H Neutrophils # 7.5 Lymphocytes # 1.1 Monocytes # 0.9 Eosinophils # 0.1 Basophils # 0.0 Nucleated Red Blood Cells # 0.0 Bedside Glucose 81 Lab Scanned Report BLOOD TRANSFUSION Medications Medications Current Medications Acetaminophen (Tylenol Liquid) 650 mg Q4H PRN NGT PAIN AND OR ELEVATED TEMP Last administered on 11/09/16 11:10; Admin Dose 650 MG; Start 09/21/16 at 02:00 Epoetin Raj (Epogen (Esrd)) 10,000 units TuThSa@17 SC Last administered on 18:18; Admin Dose 10,000 UNITS; Start 09/26/16 at 17:00 IV Flush (NS 10 ml) 10 ml PRN PRN IV IV PROTOCOL Last administered on 12/12/16 21:49; Admin Dose 10 ML; Start 09/26/16 at 17:30 Lactulose (Enulose) 20 gm BID PRN PO CONSTIPATION Last administered on 05:34; Admin Dose 20 GM; Start 10/23/16 at 10:30 Amylase/Lipase/ Protease (CREON (12k-38k-60k)) 3 cap Q6 NGT Last administered on 12/13/16 13:17; Admin Dose 3 CAP; Start 10/29/16 at 13:00 Latanoprost (Xalatan) 1 drop HS BOTH EYES Last administered on 12/11/16 21:38; Admin Dose 1 DROP; Start 10/31/16 at 21:00 Dorzolamide/ Timolol (Cosopt) 1 drop BID BOTH EYES Last administered on 09:00; Admin Dose 1 DROP; Start 10/31/16 at 21:00 Glucagon (Glucagen) 1 mg Q15M PRN IM DECREASED GLUCOSE Last administered on 12/13 06:04; Admin Dose 1 MG; Start 11/03/16 at 18:00 Ondansetron HCl (Zofran Inj) 4 mg Q4H PRN IV NAUSEA AND/OR VOMITING Last administered on 12/12/16 21:46; Admin Dose 4 MG; Start 11/04/16 at 23:00 Eye Lubricant (Artificial Tears Oph) 2 drop QID BOTH EYES Last administered on 12/14/16 17:54; Admin Dose 2 DROP; Start 11/07/16 at 09:00 Morphine Sulfate (morphine) 1 mg Q3H PRN IV pain Last administered on 12/10/16 08:16; Admin Dose 1 MG; Start 11/10/16 at 08:00 Miscellaneous Information 1 ea NOTE XX ; Start 11/14/16 at 10:00 Glucose (Glutose) 15 gm Q15M PRN PO DECREASED GLUCOSE; Start 11/14/16 at 10:00 Glucose (Glutose) 22.5 gm Q15M PRN PO DECREASED GLUCOSE; Start 11/14/16 at 10: 00 Dextrose (D50w Syringe) 25 ml Q15M PRN IV DECREASED GLUCOSE Last administered on 12/13/16 10:08; Admin Dose 25 ML; Start 11/14/16 at 10:00 Dextrose (D50w Syringe) 50 ml Q15M PRN IV DECREASED GLUCOSE Last administered on 12/07/16 05:29; Admin Dose 50 ML; Start 11/14/16 at 10:00 Glucose (Glutose) 15 gm Q15M PRN BUCCAL DECREASED GLUCOSE; Start 11/14/16 at 10 :00 Escitalopram Oxalate (Lexapro) 10 mg DAILY GTB Last administered on 12/13/16 10 :17; Admin Dose 10 MG; Start 11/16/16 at 12:30 Lactobacillus Acidophilus (Florajen3 Capsule) 1 each TID PEG Last administered on 12/13/16 13:17; Admin Dose 1 EACH; Start 11/23/16 at 21:00 Calcium Carbonate (Tums) 500 mg TID PEG Last administered on 12/13/16 13:16; Admin Dose 500 MG; Start 11/23/16 at 21:00 Metoprolol Tartrate (Lopressor) 25 mg BID GTB Last administered on 12/12/16 08: 59; Admin Dose 25 MG; Start 11/23/16 at 21:00 Insulin Aspart (Novolog Insulin Pen) (Adult SC Insulin - Mild Algorithm)... Q4 SC Last administered on 12/06/16 21:11; Admin Dose 1 UNIT; Start 12/02/16 at 01 :00 Metoclopramide HCl (Reglan) 5 mg Q6 PEG Last administered on 12/13/16 13:21; Admin Dose 5 MG; Start 12/03/16 at 01:00 Amikacin Sulfate (Amikacin Iv Per Pharmacy) AMIKACIN PER PHARMACY NOTE XX ; Start 12/06/16 at 10:30 Aspirin (Aspirin) 81 mg MONWEDFRI GTB ; Start 12/09/16 at 09:00; Status Future Hold Clopidogrel Bisulfate 75 mg 75 mg MONWEDFRI GTB ; Start 12/09/16 at 09:00; Status Future Hold Vancomycin HCl 1.25 gm/Sodium Chloride 250 ml @ 83.333 mls/ hr Q96H IVPB Last administered on 12/13/16 18:55; Admin Dose 83.333 MLS/HR; Start 12/09/16 at 17:00 Ertapenem/Sodium Chloride (Invanz/NS) 100 ml @ 200 mls/hr Q24H IVPB Last administered on 12/14/16 17:53; Admin Dose 200 MLS/HR; Start 12/09/16 at 16:00 Lansoprazole (Prevacid) 30 mg DAILY@06 GTB Last administered on 12/13/16 06:42 ; Admin Dose 30 MG; Start 12/12/16 at 06:00 Insulin Glargine (Lantus) 26 unit DAILY@08 SC ; Start 12/13/16 at 08:00 Fluconazole 100 mg 100 mg DAILY PO Last administered on 12/13/16 13:17; Admin Dose 100 MG; Start 12/13/16 at 12:00 Dextrose/Sodium Chloride (D5-1/2ns) 1,000 ml @ 70 mls/hr [id number] IV Last administered on 12/14/16 17:49; Admin Dose 70 MLS/HR; Start 12/14/16 at 12:30 ROGELIO FELIX MD Dec 15, 2016 08:43
[2016-12-15] MEDS: METOPROLOL 25 MG TAB GTB SCH ×2 (09:00→21:19)
[2016-12-15] MEDS: L ACIDOPHIL/B LACTIS/B LONGUM CAPSULE PEG SCH ×3 (09:00→21:18)
[2016-12-15] MEDS: INSULIN GLARGINE [LANtus] 3 ML PEN SC SCH (09:40)
[2016-12-15] MEDS: FLUCONAZOLE 100 MG TAB PO SCH (10:08)
[2016-12-15] MEDS: ESCITALOPRAM 10 MG TAB GTB SCH (10:08)
[2016-12-15] MEDS: CALCIUM CARBONATE 500 MG CHEW TAB PEG SCH ×3 (10:08→21:18)
[2016-12-15] MEDS: ARTIFICIAL TEARS 15 ML OPH BOTH EYES SCH ×4 (10:09→21:19)
[2016-12-15] MEDS: DORZOLAMIDE/TIMOLOL 10 ML OPH BOTH EYES SCH ×2 (10:09→21:19)
[2016-12-15] MEDS ORDERED: ACETAMINOPHEN 325 MG TAB GTB ONE (12:30)
[2016-12-15] MEDS: ACETAMINOPHEN 650MG/20.3ML CUP NGT PRN (12:48)
--- NOTE | 2016-12-15 14:12 | PN ---
DATE: 12/15/2016 SUBJECTIVE: The patient is awake, alert, and will respond to questions. She reports having pain bu t improved. OBJECTIVE: VITAL SIGNS: Temperature 97.5, pulse is 84, respirations 19, blood pressure is 101/52, pulse ox is at 99 on 3 liters nasal cannula. LABORATORY DATA: Demonstrate a WBC of 9.8, hemoglobin 10.3. ASSESSMENT AND PLAN: 1. Abdominal distention and pain. GI was consulted. They were called yesterday. No note currentl y. There was a CT scan of the abdomen demonstrating the cholecystitis. The possibility of surgical . White count continues to improve on the antibiotics. The patient reports the pain is less. We h ad questions for gastrointestinal if this is a surgical or wait. The patient currently is n.p.o. du e to this cholecystitis. The patient has received mild fluid to help out with the lower sugar. 2. Sepsis with bacteremia. WBC continues to improve. ID is following. 3. Dialysis with end-stage renal disease. The patient had 2 units of packed red blood cells yester day. Hemoglobin did go up from 7.9 to 10.3. IV fluids currently are being given but will be held u p until the time renal approves IV fluids. 4. Diabetes. Lantus is being held due to low sugars. The patient is not receiving her G-tube feed ings because of the cholecystitis. If the sugar goes down while off of IV fluids, we will restart a t a lower dose. Dictated By: SHAW CARABALLO/JERROD Conf#: [id number] DID#: [id number]
--- NOTE | 2016-12-15 15:05 | CONS ---
[facility] INITIAL INPATIENT CONSULTATION NOTE DATE OF CONSULTATION: 12/15/2016 PLACE OF SERVICE: [facility] 4th floor. ASSESSMENT AND PLAN: A very pleasant but unfortunate 71-year-old lady with multiple comorbid issues including BMI of 35.6 and many other medical issues who has remarkably survived a significant insult from multiple fronts including myocardial ischemia, pulmonary failure with possible aspiration pneumonia, renal failure with dialysis and a host of other issues who appears to have a picture consistent with gangrenous acute on chronic cholecystitis. She is not only high risk for any operative interventions at this point, but she is also not a good candidate for attempt at surgical resection based on technical considerations given the clinical picture. Her CT scan indicates a gangrenous purulent cholecystitis with likely local perforation. In this setting surgical intervention as a first line oftentimes leads to open incisions as well as high chance of morbidity, including bile leak, bile duct injury and other issues. A much safer approach for her would be a percutaneous drainage of the gallbladder , which should be done transhepatically, which would then take the gallbladder out of the picture and allow her to heal as much as possible and possibly get her to a point of elective surgery. In the past the patients have had to wait at least 4 to 6 weeks prior to an elective laparoscopic cholecystectomy with this same clinical picture. Approximately 10 to 20% of those patients are found to be eligible for simply discontinuation of the gallbladder drain and observation and we will make that decision in the future. Overall, I do not believe that there is any indication for acute surgical intervention, but certainly recommend that we set the patient up for percutaneous transhepatic cholecystostomy tube placement as above. There is also slight concern regarding the PEG tube and whether this has to be addressed since the tube seems to be within the abdominal wall and only the very tip of it seems to be communicating with the inside of the stomach. This could also potentially describe the reason why the patient has occult positive stools. I have explained the gallbladder issues with the patient in detail and will discuss the PEG issues with the team in the next coming few days. The patient did not have any major questions and I do believe that she understood and agreed with the plan. With above assessment, I recommend the followin. Schedule the patient for percutaneous transhepatic cholecystostomy tube drain placement. 2. Discussion regarding management of PEG and whether this needs to be repositioned or the tube get exchanged. 3. Aggressive nutritional support. 4. Aggressive physical therapy and occupational therapy. 5. Education patient and family regarding drain management. 6. The patient will most likely need a nursing facility after discharge and this should be worked on as we progress. Thank you again for allowing us to participate in the care of this very pleasant lady and I am certain her wonderful family. If there are any questions , please feel free to contact me at [phone]. UPDATED CLINICAL SUMMARY: A very pleasant 71-year-old lady with multiple comorbid issues including BMI of 35.6 as well as what has been in the hospital since 09/2016 being found unresponsive and multiple issues including congestive heart failure, acute renal failure due to acute tubular necrosis requiring dialysis, urinary tract infection with bacteremia and multiple other issues, who was found to have possible signs of acute cholecystitis on recent imaging. COMORBIDITIES: 1. BMI of 35.6. 2. Acute renal failure (ATN), on maintenance hemodialysis (Friday, , Friday). 3. Congestive heart failure. 4. Anemia. 5. Hypocalcemia. 6. Hypoalbuminemia and malnutrition. 7. Peripheral vascular disease with gangrene of toes of both feet. 8. Recent history of respiratory failure. 9. History of dysphagia requiring PEG placement and feedings. 10. Diabetes mellitus. 11. Leukocytosis from various sources. 12. Funguria with Erica glabrata and Erica albicans of the urine. 13. Escherichia coli and Enterococcus urinary tract infection 10/29/2016. 14. Escherichia coli bacteremia 12/02/2016 (x2 cultures). 15. Repeat culture of the urine 12/02/2016 with E. coli, enterococcus species and Klebsiella pneumoniae, extended-spectrum beta-lactamase. 16. Repeat bacteremia 12/08/2016 with Escherichia coli. 17. Urine positive for Erica albicans 12/11/2016. 18. Clostridium difficile colitis negative on a few stool samples. 19. Bilateral pleural effusions. 20. 2 mm calcified granuloma in the right lower lobe. 21. CT scan of abdomen and pelvis 12/13/2016 showing large amount of pericholecystic fluid with distention of the gallbladder, which could be of acute cholecystitis. 22. Tumefaction sludge, poorly visualized gallstones or soft tissue masses are suspected within the lumen of the distended gallbladder. 23. Anasarca. 24. Status post splenectomy. 25. A 2.8 cm left parapelvic cyst and an adjacent 1.4 cm simple cyst lateral upper portion of the lower third left kidney noted. 26. Atherosclerotic vascular disease. 27. Osteoarthritis of the thoracic and lumbosacral spine. 28. History of acute ST elevation myocardial infarction, inferior wall, status post code STEMI with stent placement, as well as temporary pacer wire. 29. Hyperlipidemia. 30. Possible aspiration pneumonia. DATE OF ADMISSION: 09/20/2016 HISTORY OF PRESENT ILLNESS: The patient is a very pleasant but unfortunate 71- year-old lady with multiple comorbid issues as outlined above and significantly prolonged hospital stay since 09/2016 with various issues with congestive heart failure, urinary tract infection, bacteremia, respiratory failure, and many other issues, who was found to possibly have acute cholecystitis and for this reason, I was kindly asked to consult regarding management of this issue. During my visit, the patient reported no significant abdominal pain. She did not have a strong voice and it was somewhat difficult to communicate with her, but she appeared to be understanding everything that I was saying to her. She did not report any active nausea or vomiting and did not have any other major complaints. Her only complaint was that she would like to have some ice chips. ALLERGIES: SOY. MEDICATIONS: At home the patient was on Lipitor, Invokana, Dorzolamide, Novolin, eyedrops and Prinivil. Inpatient she is on multiple medications and those are all very carefully reviewed and recorded in the electronic record system. SOCIAL HISTORY: The patient lives with her family. 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 She lives with her and does not report any smoking, drinking, or intravenous drug use. FAMILY HISTORY: There is no mention of major medical, surgical or oncologic problems in the family. REVIEW OF SYSTEMS: Other than the above-mentioned, there are no other pertinent positives or pertinent negatives in a complete 14-point review of systems. PHYSICAL EXAMINATION: GENERAL: The patient appears to be a very pleasant lady of non- descent, appearing stated age or perhaps slightly older, lying in bed comfortably and in no acute distress. Her BMI is 35.6. VITAL SIGNS: Temperature 97.5, blood pressure 101/52, pulse 82, respiratory rate 20, pulse oximetry 100% on 3 liters of nasal cannula. HEENT: Normocephalic and atraumatic. Extraocular muscles and hearing are grossly intact bilaterally and symmetrically. Sclerae are nonicteric. Oral cavity is clear; oral mucosa appeared to be pink and moist. Dentition: poor. NECK: Supple. There is no lymphadenopathy or JVD. There is no submental, submandibular or supraclavicular lymphadenopathy. CHEST: Rises symmetrically with each breath; patient is breathing comfortably. There are no audible wheezes, rales or rhonchi on the gross exam. HEART: Pulse is regular and palpable on the right wrist. Capillary refill was normal. Carotid pulses are palpable bilaterally and symmetrically in the neck. ABDOMEN: Soft, nondistended, and mildly tender to palpation in the right upper quadrant. There is a percutaneous gastrostomy tube in the left upper quadrant. There is no evidence of organomegaly, caput medusae, engorged subcutaneous veins, or ascites. There are no peritoneal signs or guarding. EXTREMITIES: Show bilateral dry gangrene ulcers of the toes. There is no pitting edema around the ankles bilaterally and symmetrically. SKIN: Appears to be pink and feels warm to touch. NEUROLOGIC: Awake, alert, and follows commands appropriately. LABORATORY DATA: White blood cell count 9.8, which is normal compared to many days of elevated white count up to 47.4 on 12/03/2016, hemoglobin 10.3, platelets 323. Note that this is in the setting of overall 10 units of red blood cells transfused, as well as 4 units of thawed plasma. The latest transfusion was on 12/14/2016 and before that was 12/07/2016. Her electrolytes appear to be normal. Creatinine is 1.80. Total bilirubin 0.0, AST 68, ALT 44, alkaline phosphatase 204, lipase 27, amylase 49, albumin 2.7. INR 1.0. Stool occult was positive 12/07/2016 and negative prior to that. Hepatitis A immunoglobulin antibody was nonreactive, hepatitis B surface antigen and B core total antibody was also negative. Hepatitis C antibody was negative. IMAGING: Multiple images exist and I have reviewed the pertinent image findings of the recent abdominal and pelvic CT on 12/13/2016. There was also an ultrasound on 12/10/2016, the report of which mentions normal gallbladder without gallstones, but the review of the images dispute that report. Otherwise , I have reviewed all the available and pertinent images and I agree in general with their overall reported findings. Dictated By: SHANA REZA/JERROD Conf#: [id number] DID#: [id number] MAYO
[2016-12-15] MEDS: ERTAPENEM SODIUM 0.5 GM in SOD CHLORIDE 0.9% 100 ML IVPB SCH (16:19)
[2016-12-15 19:01] VITALS: BP 108/55; RESP 18
--- NOTE | 2016-12-15 20:54 | PN ---
DATE: 12/15/2016 SUBJECTIVE: No events overnight. Patient is awake. Denies pain, looks comfortable, no fevers. WBC today 9.8, H and H 10.3 and 33.1, platelets 323, neutrophils 77. INDWELLINGS: Right chest Perm-A-Cath, PEG, Rivas. ANTIMICROBIALS: Patient is on: 1. Amikacin 2. Invanz. 3. Vancomycin. 4. Fluconazole. MICROBIOLOGY: Urine culture on 12/11/2016 grew Erica albicans. Blood culture since 12/02 grew E. coli. Repeat blood culture on 11/11 remained negative. PHYSICAL EXAMINATION: GENERAL: This is a chronically ill-appearing, elderly woman who is awake, in no distress. HEENT: Head atraumatic, normocephalic. Sclerae anicteric. Buccal mucosa dry. NECK: Supple. CHEST: Rise symmetrical. Breath sounds diminished to bases. HEART: S1, S2. ABDOMEN: Soft, bowel tones present. EXTREMITIES: Without cyanosis. Bilateral toes gangrene. ASSESSMENT: 1. Sepsis. 2. Acute gangrenous cholecystitis. 3. Escherichia coli bacteremia, likely secondary to urinary tract infection, status post PICC line discontinued. 4. Polymicrobial urinary tract infection with urine culture on 12/02/2016 grew E. coli, Enterococcus faecium and Klebsiella pneumoniae, extended-spectrum beta -lactamase. 5. End-stage renal disease, hemodialysis dependent. 6. Bilateral lower extremity toes gangrene. 7. History of cardiopulmonary arrest. 8. Healthcare-associated pneumonia. PLAN: The patient remains stable. She is being seen by Dr. Hernandes in surgical consultation, she is a high risk surgical candidate. Plan for placement of percutaneous transhepatic cholecystostomy tube tomorrow. We will continue her on current antimicrobials, discontinue amikacin. Follow recommendations of consultants. Dictated By: ROSALINA SIMS [employer] for NOEMI LARA/JERROD Conf#: [id number] DID#: [id number] MAYO
[2016-12-15] MEDS: LATANOPROST 0.005% 2.5 ML OPH BOTH EYES SCH (21:18)
[2016-12-16] VITALS (13 sets, daily range): BP systolic 110–127; BP diastolic 54–65; PULSE 80–88; RESP 12–20
[2016-12-16] MEDS: INSULIN ASPART [NOVOLOG] 3 ML PEN SC SCH ×6 (01:00→21:00)
[2016-12-16] MEDS: ONDANSETRON 4 MG INJ IV PRN ×2 (01:15→05:48)
[2016-12-16] MEDS: LEVALBUTEROL (NEB) 1.25 MG/0.5 ML AMP HHN SCH ×4 (02:11→20:44)
[2016-12-16] MEDS: IPRATROPIUM (NEB) 0.5 MG/2.5 ML AMP HHN SCH ×4 (02:11→20:44)
[2016-12-16] MEDS: LANSOPRAZOLE 30 MG CAP GTB SCH (04:55)
[2016-12-16] MEDS: CREON (12k-38k-60k) 1 CAP NGT SCH ×4 (04:55→18:00)
[2016-12-16] MEDS: METOCLOPRAMIDE 10 MG TAB PEG SCH ×4 (04:56→18:00)
[2016-12-16 05:43] LABS: ADD SCAN DIFF NO
[2016-12-16 06:05] LABS: BASOPHILS % 0.3 % (0.0-2.0); EOSINOPHILS # 0.1 10^3/ul (0.0-0.5); EOSINOPHILS % 1.1 % (0.0-7.0); HEMATOCRIT 35.2 % (37.0-47.0); HEMOGLOBIN 10.8 g/dl (12.0-16.0); LYMPHOCYTES % 8.9 % (15.0-51.0); MEAN CORPUSCULAR HEMOGLOBIN 28.2 pg (29.0-33.0); MEAN CORPUSCULAR HGB CONC 30.7 g/dl (32.0-37.0); MEAN CORPUSCULAR VOLUME 91.9 fl (82.0-101.0); MEAN PLATELET VOLUME 9.2 fl (7.4-10.4); MONOCYTE # 0.9 10^3/ul (0.3-0.9); MONOCYTES % 7.8 % (0.0-11.0); NEUTROPHIL # 9.3 10^3/ul (1.6-7.5); NEUTROPHILS % 80.7 % (39.0-77.0); NUCLEATED RED BLOOD CELLS% 0.3 /100WBC (0.0-0.0); PLATELET COUNT 354 10^3/UL (140-415); RED BLOOD COUNT 3.83 10^6/ul (4.20-5.40); RED CELL DISTRIBUTION WIDTH 17.2 % (11.5-14.5); WHITE BLOOD COUNT 11.5 10^3/ul (4.8-10.8)
[2016-12-16 06:24] LABS: ALBUMIN 3.1 g/dl (3.3-4.9); ALBUMIN/GLOBULIN RATIO 0.96; CALCIUM 9.3 mg/dl (8.4-10.2); CREATININE 2.21 mg/dl (0.44-1.00); POTASSIUM 3.6 mmol/L (3.5-5.1); TOTAL PROTEIN 6.3 g/dl (6.1-8.1)
--- NOTE | 2016-12-16 07:40 | PN ---
DATE: 12/15/2016 HISTORY OF PRESENT ILLNESS: 1. The patient also seen by me because of vomiting. The workup showed evidence of dilated stomach. 2. CAT scan also showed evidence of a dilatation of the gallbladder with possible gallstones. The patient was seen by Dr. Hernandes from a surgery standpoint. According to the nurse, Dr. Hernandes recomm ended and also ordered that patient have a percutaneous drainage of the dilated gallbladder because the patient is a high risk for surgical intervention. LABORATORY WORKUP: WBC count is 9800, hemoglobin 10.3. The liver panel shows AST 68, ALT 44, alkal ine phosphatase 204. I doubt if we are dealing with choledocholithiasis. Amylase 49, lipase 27. PLAN: At this time, recommend proceed with a percutaneous gallbladder decompression. Dictated By: CIELO COWAN/JERROD Conf#: [id number] DID#: [id number]
--- NOTE | 2016-12-16 07:47 | PN ---
DATE: 12/14/2016 CHIEF COMPLAINT: The patient has been vomiting and a KUB showed evidence of gastric dilatation. F or further evaluation, CAT scan of the abdomen was done which showed evidence of a dilated gallbladd er with pericholecystic fluid. There seems that the G-tube may not be in the stomach; hence, a Jenn rografin study will be done to locate the G-tube location. Her white count is 13,900. CLINICAL IMPRESSION: Possible acute cholecystitis. Amylase and liver panel are normal indicating t hat there may not be pancreatitis. A liver panel has been ordered to see if there is any biliary tr act disease. Ultrasound of the abdomen showed the gallbladder being normal; however, the CAT scan shows evidence of sludge in the gallbladder with pericholecystic fluid. PLAN: Surgical consultation will be obtained. Keep the patient n.p.o. Get a KUB done with a Gastrografin study of the G-tube for location. Dictated By: CIELO SANCHEZ MD NC/NTS Conf#: [id number] DID#: [id number] CC: CIELO SANCHEZ MD;*EndCC*
--- NOTE | 2016-12-16 07:54 | PN ---
DATE: 12/13/2016 CHIEF COMPLAINT: Vomiting. HISTORY OF PRESENT ILLNESS: The patient has had a percutaneous endoscopic gastrostomy tube placed i n the past. Now, apparently, the patient started vomiting. PHYSICAL EXAMINATION: Abdomen is soft, nontender. KUB done yesterday showed evidence of gastric di latation. LABORATORY WORKUP: The WBC is 14,300. Hemoglobin is 8.3. Potassium is 3.5. The chemistry like li nicolas panel is not available now. CLINICAL IMPRESSION: Vomiting secondary to the gastric dilatation, probably due to the gastroparesi s. The etiology is not known. Doubt gastric outlet obstruction due to neoplasm or peptic ulcer dis ease. PLAN: At this time, recommend repeat the KUB. Recommend to keep the patient n.p.o. and I will foll ow the patient closely. Dictated By: CIELO COWAN/JERROD Conf#: [id number] DID#: [id number]
--- NOTE | 2016-12-16 07:55 | CONS ---
Date/Time of Note Date/Time of Note DATE: 12/16/16 TIME: 07:51 Assessment/Plan Assessment/Plan Chief Complaint/Hosp Course 1. Acute Renal Failure due to ATN . She is now on maintenance hemodialysis T T S . I will order hemodialysis for tomorrow . 2. ALOC , she continues to be very weak and lethargic . But overall better . 3. She is scheduled for a cholecystostomy today . 4. CHF , her chest x-ray shows some clearing, she is having fluid removed with dialysis and is overall better with fluid balance. 5. hypocalcemia/hypoalbuminemia , calcium is higher 6. anemia , She has no active GI bleeding now. 7. peripheral vascular disease .gangrene of toes of both feet . 8. respiratory failure , pulmonary function has improved . 9 dysphagia , she has a PEG . 10. discharge planning . She can be discharged to home or SNF , with outpatient dialysis . 11. DM , blood sugars are low because tube feeding is off , will start IV fluid . 12. Leukocytosis , WBC is down to 18,000 today, she is growing e coli in the blood , from urine . Antibiotics have been started and she is being followed by infectious disease [facility] consultant. They are managing her antibiotics.PICC line removed because of possible line sepsis . . Problems: Consultation Date/Type/Reason Admit Date/Time Sep 20, 2016 at 19:21 Initial Consult Date 09/23/16 Type of Consultation: neph Referring Provider: ZANDRA ROBISON MD, [facility] HR Interval Summary Free Text/Dictation She is awake and responsive . She is scheduled for surgery today . Constitutional: no complaints Exam/Review of Systems Vital Signs Vitals Vital Signs Date Time Temp Pulse Resp B/P Pulse Ox O2 Delivery O2 Flow Rate FiO2 12/16/16 07:19 97.6 78 19 110/56 98 12/16/16 02:12 2.0 12/16/16 02:12 Nasal Cannula Intake and Output 12/15/16 12/15/16 12/16/16 15:00 23:00 07:00 Intake Total 400 ml 100 ml Output Total 0 ml Balance 400 ml 100 ml Exam Constitutional: alert, frail, obese, oriented Psych: no complaints Respiratory: clear to auscultation, normal air movement Cardiovascular: regular rate and rhythm Gastrointestinal: distended, soft, tender Musculoskeletal: nl extremities to inspection Results Result Diagram: 6/12/17 0430 12/16/16 0430 Results 24 hrs Laboratory Tests Test 12/15/16 09:03 12/15/16 12:47 12/15/16 17:48 12/15/16 21:10 Bedside Glucose 105 113 119 112 Test 12/16/16 01:07 12/16/16 04:30 12/16/16 05:13 Bedside Glucose 109 97 White Blood Count 11.5 H Red Blood Count 3.83 L Hemoglobin 10.8 L Hematocrit 35.2 L Mean Corpuscular Volume 91.9 Mean Corpuscular Hemoglobin 28.2 L Mean Corpuscular Hemoglobin Concent 30.7 L Red Cell Distribution Width 17.2 H Platelet Count 354 Mean Platelet Volume 9.2 Neutrophils % 80.7 H Lymphocytes % 8.9 L Monocytes % 7.8 Eosinophils % 1.1 Basophils % 0.3 Nucleated Red Blood Cells % 0.3 H Neutrophils # 9.3 H Lymphocytes # 1.0 Monocytes # 0.9 Eosinophils # 0.1 Basophils # 0.0 Nucleated Red Blood Cells # 0.0 Sodium Level 141 Potassium Level 3.6 Chloride Level 105 Carbon Dioxide Level 25 Anion Gap 15 Blood Urea Nitrogen 35 H Creatinine 2.21 H Glucose Level 101 Calcium Level 9.3 Total Bilirubin 0.0 L Direct Bilirubin 0.00 Indirect Bilirubin 0.0 Aspartate Amino Transf (AST/SGOT) 55 H Alanine Aminotransferase (ALT/SGPT) 31 Alkaline Phosphatase 224 H Total Protein 6.3 Albumin 3.1 L Globulin 3.20 Albumin/Globulin Ratio 0.96 Medications Medications Current Medications Acetaminophen (Tylenol Liquid) 650 mg Q4H PRN NGT PAIN AND OR ELEVATED TEMP Last administered on 12/15/16 12:48; Admin Dose 650 MG; Start 09/21/16 at 02:00 Epoetin Raj (Epogen (Esrd)) 10,000 units TuThSa@17 SC Last administered on 18:18; Admin Dose 10,000 UNITS; Start 09/26/16 at 17:00 IV Flush (NS 10 ml) 10 ml PRN PRN IV IV PROTOCOL Last administered on 12/12/16 21:49; Admin Dose 10 ML; Start 09/26/16 at 17:30 Lactulose (Enulose) 20 gm BID PRN PO CONSTIPATION Last administered on 05:34; Admin Dose 20 GM; Start 10/23/16 at 10:30 Amylase/Lipase/ Protease (CREON ([id number])) 3 cap Q6 NGT Last administered on 12/15/16 10:08; Admin Dose 1 CAP; Start 10/29/16 at 13:00 Latanoprost (Xalatan) 1 drop HS BOTH EYES Last administered on 12/15/16 21:18 ; Admin Dose 1 DROP; Start 10/31/16 at 21:00 Dorzolamide/ Timolol (Cosopt) 1 drop BID BOTH EYES Last administered on 21:19; Admin Dose 1 DROP; Start 10/31/16 at 21:00 Glucagon (Glucagen) 1 mg Q15M PRN IM DECREASED GLUCOSE Last administered on 12/13 06:04; Admin Dose 1 MG; Start 11/03/16 at 18:00 Ondansetron HCl (Zofran Inj) 4 mg Q4H PRN IV NAUSEA AND/OR VOMITING Last administered on 12/16/16 05:48; Admin Dose 4 MG; Start 11/04/16 at 23:00 Eye Lubricant (Artificial Tears Oph) 2 drop QID BOTH EYES Last administered on 12/15/16 21:19; Admin Dose 2 DROP; Start 11/07/16 at 09:00 Morphine Sulfate (morphine) 1 mg Q3H PRN IV pain Last administered on 12/10/16 08:16; Admin Dose 1 MG; Start 11/10/16 at 08:00 Miscellaneous Information 1 ea NOTE XX ; Start 11/14/16 at 10:00 Glucose (Glutose) 15 gm Q15M PRN PO DECREASED GLUCOSE; Start 11/14/16 at 10:00 Glucose (Glutose) 22.5 gm Q15M PRN PO DECREASED GLUCOSE; Start 11/14/16 at 10: 00 Dextrose (D50w Syringe) 25 ml Q15M PRN IV DECREASED GLUCOSE Last administered on 12/13/16 10:08; Admin Dose 25 ML; Start 11/14/16 at 10:00 Dextrose (D50w Syringe) 50 ml Q15M PRN IV DECREASED GLUCOSE Last administered on 12/07/16 05:29; Admin Dose 50 ML; Start 11/14/16 at 10:00 Glucose (Glutose) 15 gm Q15M PRN BUCCAL DECREASED GLUCOSE; Start 11/14/16 at 10 :00 Escitalopram Oxalate (Lexapro) 10 mg DAILY GTB Last administered on 12/15/16 10:08; Admin Dose 10 MG; Start 11/16/16 at 12:30 Lactobacillus Acidophilus (Florajen3 Capsule) 1 each TID PEG Last administered on 12/15/16 21:18; Admin Dose 1 EACH; Start 11/23/16 at 21:00 Calcium Carbonate (Tums) 500 mg TID PEG Last administered on 12/15/16 21:18; Admin Dose 500 MG; Start 11/23/16 at 21:00 Metoprolol Tartrate (Lopressor) 25 mg BID GTB Last administered on 12/15/16 21 :19; Admin Dose 25 MG; Start 11/23/16 at 21:00 Insulin Aspart (Novolog Insulin Pen) (Adult SC Insulin - Mild Algorithm)... Q4 SC Last administered on 12/06/16 21:11; Admin Dose 1 UNIT; Start 12/02/16 at 01 :00 Metoclopramide HCl (Reglan) 5 mg Q6 PEG Last administered on 12/15/16 12:49; Admin Dose 5 MG; Start 12/03/16 at 01:00 Aspirin (Aspirin) 81 mg MONWEDFRI GTB ; Start 12/09/16 at 09:00; Status Future Hold Clopidogrel Bisulfate 75 mg 75 mg MONWEDFRI GTB ; Start 12/09/16 at 09:00; Status Future Hold Vancomycin HCl 1.25 gm/Sodium Chloride 250 ml @ 83.333 mls/ hr Q96H IVPB Last administered on 12/13/16 18:55; Admin Dose 83.333 MLS/HR; Start 12/09/16 at 17:00 Ertapenem/Sodium Chloride (Invanz/NS) 100 ml @ 200 mls/hr Q24H IVPB Last administered on 12/15/16 16:19; Admin Dose 200 MLS/HR; Start 12/09/16 at 16:00 Lansoprazole (Prevacid) 30 mg DAILY@06 GTB Last administered on 12/13/16 06:42 ; Admin Dose 30 MG; Start 12/12/16 at 06:00 Insulin Glargine (Lantus) 26 unit DAILY@08 SC ; Start 12/13/16 at 08:00; Status Future Hold Fluconazole 100 mg 100 mg DAILY PO Last administered on 12/15/16 10:08; Admin Dose 100 MG; Start 12/13/16 at 12:00 Dextrose/Sodium Chloride (D5-1/2ns) 1,000 ml @ 70 mls/hr [id number] IV Last administered on 12/14/16 17:49; Admin Dose 70 MLS/HR; Start 12/14/16 at 12:30 DAMIR MARTINEZ MD Dec 16, 2016 07:55
[2016-12-16] MEDS: L ACIDOPHIL/B LACTIS/B LONGUM CAPSULE PEG SCH ×4 (09:00→22:22)
[2016-12-16] MEDS: ESCITALOPRAM 10 MG TAB GTB SCH (09:36)
[2016-12-16] MEDS: FLUCONAZOLE 100 MG TAB PO SCH (09:36)
[2016-12-16] MEDS: DORZOLAMIDE/TIMOLOL 10 ML OPH BOTH EYES SCH ×2 (09:36→20:23)
[2016-12-16] MEDS: ARTIFICIAL TEARS 15 ML OPH BOTH EYES SCH ×4 (09:36→20:23)
[2016-12-16] MEDS: CALCIUM CARBONATE 500 MG CHEW TAB PEG SCH ×3 (09:36→20:20)
[2016-12-16] MEDS: METOPROLOL 25 MG TAB GTB SCH ×2 (09:37→20:22)
[2016-12-16] MEDS ORDERED: MIDAZOLAM 1 MG/ML 2 ML INJ ONE (11:53)
[2016-12-16] MEDS ORDERED: SOD CHLORIDE 0.9% 500 ML ONE (11:53)
[2016-12-16] MEDS ORDERED: LIDOCAINE 1% (MDV) 20 ML INJ ONE (11:53)
[2016-12-16] MEDS ORDERED: FENTAnyl 50 MCG/ML VIAL ONE (11:53)
--- NOTE | 2016-12-16 12:01 | PN ---
Date/Time of Note Date/Time of Note DATE: 12/16/16 TIME: 11:55 Assessment/Plan Lines/Catheters IV Catheter Type (from Nrs): Peripheral IV Rivas in Place (from Nrs): No Assessment/Plan Assessment/Plan [facility] Progress Note Date of Service: 12/16/16 Today's Impression & Plan: Overall stable without major change in guarded, but slowly improving status. I suspect she will improve significantly more after adequate drainage of her abscess within and around her gallbladder. Discussed case with Dr. Back. With above assessment, I've recommended the following for today: 1. Cont. with current management 2. Check labs in am 3. PEG management per Dr. Helm, and will contribute through multidisciplinary approach 4. Increase nutrition with goal of albumin > 3.5 5. Increase activity 6. ? need for vascular evaluation of lower extremities for possible intervention (not sure if done in the past; if not, may benefit from this) Thank you again for your great care of this very pleasant patient and wonderful family. If there are any questions, please feel free to call me at [phone]. TOTAL VISIT TIME: 20 minutes of which more than half was spent in [id number] discussion with the patient, possibly including family, as well as coordination of care between multiple physicians and providers. Disclaimer: Inadvertent spelling or grammatical errors are likely due to EHR/ dictation software use and do not reflect on the overall quality of patient care. Updated Clinical Summary: A very pleasant 71-year-old lady with multiple comorbid issues including BMI of 35.6 as well as what has been in the hospital since 09/2016 being found unresponsive and multiple issues including congestive heart failure, acute renal failure due to acute tubular necrosis requiring dialysis, urinary tract infection with bacteremia and multiple other issues, who was found to have possible signs of acute cholecystitis on recent imaging. COMORBIDITIES: 1. BMI of 35.6. 2. Acute renal failure (ATN), on maintenance hemodialysis (Friday, , Friday). 3. Congestive heart failure. 4. Anemia. 5. Hypocalcemia. 6. Hypoalbuminemia and malnutrition. 7. Peripheral vascular disease with gangrene of toes of both feet. 8. Recent history of respiratory failure. 9. History of dysphagia requiring PEG placement and feedings. 10. Diabetes mellitus. 11. Leukocytosis from various sources. 12. Funguria with Erica glabrata and Erica albicans of the urine. 13. Escherichia coli and Enterococcus urinary tract infection 10/29/2016. 14. Escherichia coli bacteremia 12/02/2016 (x2 cultures). 15. Repeat culture of the urine 12/02/2016 with E. coli, enterococcus species and Klebsiella pneumoniae, extended-spectrum beta-lactamase. 16. Repeat bacteremia 12/08/2016 with Escherichia coli. 17. Urine positive for Erica albicans 12/11/2016. 18. Clostridium difficile colitis negative on a few stool samples. 19. Bilateral pleural effusions. 20. 2 mm calcified granuloma in the right lower lobe. 21. CT scan of abdomen and pelvis 12/13/2016 showing large amount of pericholecystic fluid with distention of the gallbladder, which could be of acute cholecystitis. 22. Tumefaction sludge, poorly visualized gallstones or soft tissue masses are suspected within the lumen of the distended gallbladder. 23. Anasarca. 24. Status post splenectomy. 25. A 2.8 cm left parapelvic cyst and an adjacent 1.4 cm simple cyst lateral upper portion of the lower third left kidney noted. 26. Atherosclerotic vascular disease. 27. Osteoarthritis of the thoracic and lumbosacral spine. 28. History of acute ST elevation myocardial infarction, inferior wall, status post code STEMI with stent placement, as well as temporary pacer wire. 29. Hyperlipidemia. 30. Possible aspiration pneumonia. Subjective: No major events or complaints; no major abd pain; no n/v/d; no sob or cp; + flatus; + BM; + activity; I visited her while she was on the CT scan table prior to her perc GB drain placement. Objective: Vitals: See below Exam: GENERAL: On exam, the patient was laying in bed and appeared to be comfortable and in no acute distress. ABDOMEN: Soft, nontender and nondistended. There are no peritoneal signs or guarding. SKIN: Skin appears to be pink and feels warm to touch. NEUROLOGIC: Patient is awake, alert, and follows commands appropriately. Exam/Review of Systems Vital Signs Vitals Vital Signs Date Time Temp Pulse Resp B/P Pulse Ox O2 Delivery O2 Flow Rate FiO2 12/16/16 07:19 97.6 78 19 110/56 98 12/16/16 02:12 2.0 12/16/16 02:12 Nasal Cannula Intake and Output 12/15/16 12/15/16 12/16/16 15:00 23:00 07:00 Intake Total 400 ml 100 ml Output Total 0 ml Balance 400 ml 100 ml Results Result Diagram: 12/16/16 0430 12/16/16 0430 SHANA ROSARIO M.D. Dec 16, 2016 12:01
--- NOTE | 2016-12-16 12:24 | CONS ---
Date/Time of Note Date/Time of Note DATE: 12/16/16 TIME: 12:19 Assessment/Plan Assessment/Plan Additional Assessment/Plan SUBJECTIVE: No acute changes. No fevers. The patient is lethargic, lying comfortably in bed. MICROBIOLOGY: Blood cultures from 12/12 remain negative. DIAGNOSTICS: CT of the abdomen and pelvis from yesterday revealed bilateral pleural effusion with consolidative infiltrates in the right lower lobe and 2 mm granuloma in the right lower lobe, small left pleural effusion with compressive atelectasis in the left lower lobe, large amount of pericholecystic fluid with distention of the gallbladder. Findings could be a result of acute cholecystitis, anasarca. ANTIMICROBIALS: Patient is on vancomycin, Invanz, amikacin and fluconazole. Urine culture on 12/11 grew Eriac albicans. INDWELLINGS: The patient has right chest Perm-A-Cath, PEG. PHYSICAL EXAMINATION: GENERAL: This is a chronically ill-appearing, elderly woman who is in no distress. HEENT: Head atraumatic, normocephalic. Sclerae anicteric. Buccal mucosa dry. NECK: Supple. CHEST: Rise symmetrical. Breath sounds diminished to bases. HEART: S1, S2. ABDOMEN: Soft. Bowel tones present. EXTREMITIES: With trace edema. Bilateral gangrene of the toes. ASSESSMENT: 1. Sepsis with polymicrobial bacteremia, status post PICC line discontinued, patient still has Perm-A-Cath. 2. Polymicrobial urinary tract infection with urine culture on 12/02, grew Escherichia coli, enterococcus species and Klebsiella extended-spectrum beta- lactamase, repeat urine culture growing Erica albicans. Patient remains on Diflucan day #2. 3. Status post nausea and vomiting with a questionable cholecystitis per CT of the abdomen and pelvis. 4. Healthcare-associated pneumonia. 5. End-stage renal disease, hemodialysis dependent. 6. History of cardiopulmonary arrest. 7. Bilateral lower extremity gangrene. PLAN: The patient remains clinically stable, so far afebrile, white blood cell count tracing down and she is covered with appropriate antimicrobials. We will discontinue isolation. We will repeat Urine Culture. D/W staff. Consultation Date/Type/Reason Admit Date/Time Sep 20, 2016 at 19:21 Initial Consult Date 10/22/16 Type of Consultation: ID Referring Provider: ZANDRA ROBISON MD, [facility] Exam/Review of Systems Vital Signs Vitals Vital Signs Date Time Temp Pulse Resp B/P Pulse Ox O2 Delivery O2 Flow Rate FiO2 12/16/16 07:19 97.6 78 19 110/56 98 12/16/16 02:12 2.0 12/16/16 02:12 Nasal Cannula Intake and Output 12/15/16 12/15/16 12/16/16 15:00 23:00 07:00 Intake Total 400 ml 100 ml Output Total 0 ml Balance 400 ml 100 ml Results Result Diagram: 12/16/16 0430 12/16/16 0430 Results 24 hrs Laboratory Tests Test 12/15/16 12:47 12/15/16 17:48 12/15/16 21:10 12/16/16 01:07 Bedside Glucose 113 119 112 109 Test 12/16/16 04:30 12/16/16 05:13 12/16/16 08:39 White Blood Count 11.5 H Red Blood Count 3.83 L Hemoglobin 10.8 L Hematocrit 35.2 L Mean Corpuscular Volume 91.9 Mean Corpuscular Hemoglobin 28.2 L Mean Corpuscular Hemoglobin Concent 30.7 L Red Cell Distribution Width 17.2 H Platelet Count 354 Mean Platelet Volume 9.2 Neutrophils % 80.7 H Lymphocytes % 8.9 L Monocytes % 7.8 Eosinophils % 1.1 Basophils % 0.3 Nucleated Red Blood Cells % 0.3 H Neutrophils # 9.3 H Lymphocytes # 1.0 Monocytes # 0.9 Eosinophils # 0.1 Basophils # 0.0 Nucleated Red Blood Cells # 0.0 Sodium Level 141 Potassium Level 3.6 Chloride Level 105 Carbon Dioxide Level 25 Anion Gap 15 Blood Urea Nitrogen 35 H Creatinine 2.21 H Glucose Level 101 Calcium Level 9.3 Total Bilirubin 0.0 L Direct Bilirubin 0.00 Indirect Bilirubin 0.0 Aspartate Amino Transf (AST/SGOT) 55 H Alanine Aminotransferase (ALT/SGPT) 31 Alkaline Phosphatase 224 H Total Protein 6.3 Albumin 3.1 L Globulin 3.20 Albumin/Globulin Ratio 0.96 Bedside Glucose 97 108 Medications Medications Current Medications Acetaminophen (Tylenol Liquid) 650 mg Q4H PRN NGT PAIN AND OR ELEVATED TEMP Last administered on 12/15/16t 12:48; Admin Dose 650 MG; Start 09/21/16 at 02:00 Epoetin Raj (Epogen (Esrd)) 10,000 units TuThSa@17 SC Last administered on 18:18; Admin Dose 10,000 UNITS; Start 09/26/16 at 17:00 IV Flush (NS 10 ml) 10 ml PRN PRN IV IV PROTOCOL Last administered on 12/12/16 21:49; Admin Dose 10 ML; Start 09/26/16 at 17:30 Lactulose (Enulose) 20 gm BID PRN PO CONSTIPATION Last administered on 05:34; Admin Dose 20 GM; Start 10/23/16 at 10:30 Amylase/Lipase/ Protease (CREON ([id number])) 3 cap Q6 NGT Last administered on 12/15/16 10:08; Admin Dose 1 CAP; Start 10/29/16 at 13:00 Latanoprost (Xalatan) 1 drop HS BOTH EYES Last administered on 12/15/16 21:18 ; Admin Dose 1 DROP; Start 10/31/16 at 21:00 Dorzolamide/ Timolol (Cosopt) 1 drop BID BOTH EYES Last administered on 09:36; Admin Dose 1 DROP; Start 10/31/16 at 21:00 Glucagon (Glucagen) 1 mg Q15M PRN IM DECREASED GLUCOSE Last administered on 12/13 06:04; Admin Dose 1 MG; Start 11/03/16 at 18:00 Ondansetron HCl (Zofran Inj) 4 mg Q4H PRN IV NAUSEA AND/OR VOMITING Last administered on 12/16/16 05:48; Admin Dose 4 MG; Start 11/04/16 at 23:00 Eye Lubricant (Artificial Tears Oph) 2 drop QID BOTH EYES Last administered on 12/16/16 09:36; Admin Dose 2 DROP; Start 11/07/16 at 09:00 Morphine Sulfate (morphine) 1 mg Q3H PRN IV pain Last administered on 12/10/16 08:16; Admin Dose 1 MG; Start 11/10/16 at 08:00 Miscellaneous Information 1 ea NOTE XX ; Start 11/14/16 at 10:00 Glucose (Glutose) 15 gm Q15M PRN PO DECREASED GLUCOSE; Start 11/14/16 at 10:00 Glucose (Glutose) 22.5 gm Q15M PRN PO DECREASED GLUCOSE; Start 11/14/16 at 10: 00 Dextrose (D50w Syringe) 25 ml Q15M PRN IV DECREASED GLUCOSE Last administered on 12/13/16 10:08; Admin Dose 25 ML; Start 11/14/16 at 10:00 Dextrose (D50w Syringe) 50 ml Q15M PRN IV DECREASED GLUCOSE Last administered on 12/07/16 05:29; Admin Dose 50 ML; Start 11/14/16 at 10:00 Glucose (Glutose) 15 gm Q15M PRN BUCCAL DECREASED GLUCOSE; Start 11/14/16 at 10 :00 Escitalopram Oxalate (Lexapro) 10 mg DAILY GTB Last administered on 12/16/16 09:36; Admin Dose 10 MG; Start 11/16/16 at 12:30 Lactobacillus Acidophilus (Florajen3 Capsule) 1 each TID PEG Last administered on 12/15/16 21:18; Admin Dose 1 EACH; Start 11/23/16 at 21:00 Calcium Carbonate (Tums) 500 mg TID PEG Last administered on 12/16/16 09:36; Admin Dose 500 MG; Start 11/23/16 at 21:00 Metoprolol Tartrate (Lopressor) 25 mg BID GTB Last administered on 12/16/16 09 :37; Admin Dose 25 MG; Start 11/23/16 at 21:00 Insulin Aspart (Novolog Insulin Pen) (Adult SC Insulin - Mild Algorithm)... Q4 SC Last administered on 12/06/16 21:11; Admin Dose 1 UNIT; Start 12/02/16 at 01 :00 Metoclopramide HCl (Reglan) 5 mg Q6 PEG Last administered on 12/15/16 12:49; Admin Dose 5 MG; Start 12/03/16 at 01:00 Aspirin (Aspirin) 81 mg MONWEDFRI GTB ; Start 12/09/16 at 09:00; Status Future Hold Clopidogrel Bisulfate (plaVIX) 75 mg MONWEDFRI GTB ; Start 12/09/16 at 09:00; Status Future Hold Lansoprazole (Prevacid) 30 mg DAILY@06 GTB Last administered on 12/13/16 06:42 ; Admin Dose 30 MG; Start 12/12/16 at 06:00 Insulin Glargine (Lantus) 26 unit DAILY@08 SC ; Start 12/13/16 at 08:00; Status Future Hold Fluconazole 100 mg 100 mg DAILY PO Last administered on 12/16/16 09:36; Admin Dose 100 MG; Start 12/13/16 at 12:00 Dextrose/Sodium Chloride 1,000 ml @ 70 mls/hr [id number] IV Last administered on 12/14/16 17:49; Admin Dose 70 MLS/HR; Start 12/14/16 at 12:30 Meropenem (Merrem 500 Mg/ 100 ml (Pmx)) 100 ml @ 200 mls/hr Q24H IVPB ; Start 12/16/16 at 21:00 MAKAYLA JANE NP Dec 16, 2016 12:23
[2016-12-16] MEDS: DEXTROSE 5%-0.45% NACL 1,000 ML IV SCH ×2 (14:07→21:42)
--- NOTE | 2016-12-16 17:02 | RADRPT ---
PROCEDURE: CT guided cholecystostomy. CLINICAL INDICATION: Right upper quadrant abdomen pain. Cholecystitis. The patient is too unstab le for surgery. TECHNIQUE: Informed consent was obtained. The procedure, risks, benefits, complications and alternatives were explained to the patient. Risks including bleeding and infection were explained. The patient under stood and was willing to proceed. A procedural pause was performed. The patient's name, date of bir th, and procedure to be performed were verified. One or more of the following dose reduction techn iques were used: Automated exposure control, adjustment of the mA and/or kV according to patient siz e, use of iterative reconstruction technique. Using local anesthetic, sterile technique and CT guidance, a 19-gauge Yueh needle was advanced throu gh the liver and into the gallbladder. CT scan was performed confirming position. Bilious fluid wa s also aspirated confirming position. The needle from the Yueh catheter was removed, leaving the Solano eh catheter in place within the gallbladder. A 0.035-inch Amplatz guidewire was advanced through th e Yueh catheter into the gallbladder. The Yueh catheter was removed. The tract was dilated to 8-Fr ench, and an 8.5 Irish multipurpose drainage catheter was advanced over the guidewire into the gall bladder. The guidewire was removed. Additional scanning was performed confirming position. The ca theter was then sutured to the patient's skin with 2-0 silk. Bilious fluid was aspirated. The cath eter was connected to a drainage bag. A dressing was applied. The patient tolerated procedure well. COMPARISON: None. FINDINGS: Final images demonstrate the drainage catheter in satisfactory position within the gallbladder. IMPRESSION: 1. Successful CT guided cholecystostomy. RPTAT: QQ .Arnaldo Back MD, MD Date Time Electronically viewed and signed by .Arnaldo Back MD, MD on 12/16/2016 17:02 .R/
[2016-12-16] MEDS: ACETAMINOPHEN 650MG/20.3ML CUP NGT PRN (20:20)
[2016-12-16] MEDS: LATANOPROST 0.005% 2.5 ML OPH BOTH EYES SCH (20:23)
[2016-12-16] MEDS: MEROPENEM 500 MG/100 ML (PMX) 100 ML IVPB SCH ×2 (21:00→21:07)
[2016-12-16] MEDS: ZOLPIDEM 5 MG TAB PO PRN (22:23)
[2016-12-17] VITALS (10 sets, daily range): BP systolic 97–123; BP diastolic 55–61; PULSE 68–79; RESP 18–20
[2016-12-17] MEDS: INSULIN ASPART [NOVOLOG] 3 ML PEN SC SCH ×8 (01:00→21:41)
[2016-12-17] MEDS: LEVALBUTEROL (NEB) 1.25 MG/0.5 ML AMP HHN SCH ×4 (02:00→19:39)
[2016-12-17] MEDS: IPRATROPIUM (NEB) 0.5 MG/2.5 ML AMP HHN SCH ×4 (02:00→19:39)
[2016-12-17] MEDS: METOCLOPRAMIDE 10 MG TAB PEG SCH ×5 (02:15→18:41)
[2016-12-17] MEDS: DEXTROSE 5%-0.45% NACL 1,000 ML IV SCH (02:15)
[2016-12-17] MEDS: CREON (12k-38k-60k) 1 CAP NGT SCH ×5 (02:15→17:48)
[2016-12-17] MEDS: LANSOPRAZOLE 30 MG CAP GTB SCH (06:30)
--- NOTE | 2016-12-17 08:22 | PN ---
Date/Time of Note Date/Time of Note DATE: 12/17/16 TIME: 08:14 Assessment/Plan Lines/Catheters IV Catheter Type (from Nrs): Peripheral IV Rivas in Place (from Nrs): No Assessment/Plan Assessment/Plan [facility] Progress Note Date of Service: 12/17/16 Today's Impression & Plan: Severe acute on chronic cholecystitis with possible localized perforation, s/p CT-guided percutaneous transhepatic cholecystostomy drain placement 12/16/16. Overall stable without major change in guarded, but slowly improving status. GB drainage will likely take a number of weeks prior to adequate resolution of the inflammation prior to any decisions regarding surgical intervention vs. discontinuation of the drain. No indication for acute surgical intervention. PEG check seems ok. No leak. ? ability to resume feeds and ? ability to swallow (failed last Friday, per nurse's report). With above assessment, I've recommended the following for today: 1. Cont. with current management 2. Check labs in am 3. PEG management per Dr. Helm, and will contribute through multidisciplinary approach 4. Increase nutrition with goal of albumin > 3.5 5. Increase activity 6. ? need for vascular evaluation of lower extremities for possible intervention (not sure if done in the past; if not, may benefit from this) 7. Revisit the issue of feeds and swallowing ability Thank you again for your great care of this very pleasant patient and wonderful family. If there are any questions, please feel free to call me at [phone]. TOTAL VISIT TIME: 20 minutes of which more than half was spent in [id number] discussion with the patient, possibly including family, as well as coordination of care between multiple physicians and providers. Disclaimer: Inadvertent spelling or grammatical errors are likely due to EHR/ dictation software use and do not reflect on the overall quality of patient care. Updated Clinical Summary: A very pleasant 71-year-old lady with multiple comorbid issues including BMI of 35.6 as well as what has been in the hospital since 09/2016 being found unresponsive and multiple issues including congestive heart failure, acute renal failure due to acute tubular necrosis requiring dialysis, urinary tract infection with bacteremia and multiple other issues, who was found to have possible signs of acute cholecystitis on recent imaging. COMORBIDITIES: 1. BMI of 35.6. 2. Acute renal failure (ATN), on maintenance hemodialysis (Friday, , Friday). 3. Congestive heart failure. 4. Anemia. 5. Hypocalcemia. 6. Hypoalbuminemia and malnutrition. 7. Peripheral vascular disease with gangrene of toes of both feet. 8. Recent history of respiratory failure. 9. History of dysphagia requiring PEG placement and feedings. 10. Diabetes mellitus. 11. Leukocytosis from various sources. 12. Funguria with Erica glabrata and Erica albicans of the urine. 13. Escherichia coli and Enterococcus urinary tract infection 10/29/2016. 14. Escherichia coli bacteremia 12/02/2016 (x2 cultures). 15. Repeat culture of the urine 12/02/2016 with E. coli, enterococcus species and Klebsiella pneumoniae, extended-spectrum beta-lactamase. 16. Repeat bacteremia 12/08/2016 with Escherichia coli. 17. Urine positive for Erica albicans 12/11/2016. 18. Clostridium difficile colitis negative on a few stool samples. 19. Bilateral pleural effusions. 20. 2 mm calcified granuloma in the right lower lobe. 21. CT scan of abdomen and pelvis 12/13/2016 showing large amount of pericholecystic fluid with distention of the gallbladder, which could be of acute cholecystitis. 22. Tumefaction sludge, poorly visualized gallstones or soft tissue masses are suspected within the lumen of the distended gallbladder. 23. Anasarca. 24. Status post splenectomy. 25. A 2.8 cm left parapelvic cyst and an adjacent 1.4 cm simple cyst lateral upper portion of the lower third left kidney noted. 26. Atherosclerotic vascular disease. 27. Osteoarthritis of the thoracic and lumbosacral spine. 28. History of acute ST elevation myocardial infarction, inferior wall, status post code STEMI with stent placement, as well as temporary pacer wire. 29. Hyperlipidemia. 30. Possible aspiration pneumonia. 31. S/p CT-guided percutaneous transhepatic cholecystostomy drain placement 06/22, [facility] Subjective: No major events or complaints other than above; no major abd pain; no n/v/d; no sob or cp; + flatus; + BM; - activity; I visited her while she was getting dialyzed. Patient asked about ice chips. Objective: Vitals: See below Exam: GENERAL: On exam, the patient was laying in bed and appeared to be comfortable and in no acute distress. ABDOMEN: Soft, nontender and nondistended. There are no peritoneal signs or guarding. Perc GB drain with thick bilious output. SKIN: Skin appears to be pink and feels warm to touch. NEUROLOGIC: Patient is awake, alert, and follows commands appropriately. Exam/Review of Systems Vital Signs Vitals Vital Signs Date Time Temp Pulse Resp B/P Pulse Ox O2 Delivery O2 Flow Rate FiO2 12/17/16 08:09 97.7 64 18 100 12/17/16 02:00 21 12/16/16 20:30 127/65 12/16/16 13:53 Room Air 12/16/16 11:50 2 Intake and Output 12/16/16 12/16/16 12/17/16 15:00 23:00 07:00 Intake Total 200 ml 380 ml 1230 ml Output Total 180 ml 55 ml Balance 20 ml 380 ml 1175 ml Results Result Diagram: 12/16/16 0430 12/16/16 0430 SHANA ROSARIO M.D. Dec 17, 2016 08:22
[2016-12-17] MEDS: ALBUMIN HUMAN 25% 100 ML IV PRN (08:26)
[2016-12-17] MEDS: METOPROLOL 25 MG TAB GTB SCH ×2 (09:00→21:04)
[2016-12-17] MEDS ORDERED: HEPARIN 1000 UNITS/ML 10 ML INJ CATHETER ONE (09:30)
[2016-12-17] MEDS ORDERED: MEROPENEM 500 MG/100 ML (PMX) 100 ML IVPB SCH (10:30)
[2016-12-17] MEDS: ESCITALOPRAM 10 MG TAB GTB SCH (11:06)
[2016-12-17] MEDS: FLUCONAZOLE 100 MG TAB PO SCH (11:06)
[2016-12-17] MEDS: CALCIUM CARBONATE 500 MG CHEW TAB PEG SCH ×3 (11:06→21:04)
[2016-12-17] MEDS: L ACIDOPHIL/B LACTIS/B LONGUM CAPSULE PEG SCH ×4 (11:06→21:04)
[2016-12-17] MEDS: ARTIFICIAL TEARS 15 ML OPH BOTH EYES SCH ×4 (11:06→21:03)
[2016-12-17] MEDS: DORZOLAMIDE/TIMOLOL 10 ML OPH BOTH EYES SCH ×2 (11:06→21:03)
--- NOTE | 2016-12-17 12:19 | CONS ---
Date/Time of Note Date/Time of Note DATE: 12/17/16 TIME: : Assessment/Plan Assessment/Plan Chief Complaint/Hosp Course SUBJECTIVE: No acute changes overnight. The patient is awake, denies pain, lying comfortably in bed. No fevers MICROBIOLOGY: Repeat blood cultures growing gram-negative rods on December 08. ANTIMICROBIALS: The patient is on: 1. Vancomycin. 2. Merrem 3. Diflucan INDWELLINGS: RSC permacath, PEG, cholecystostomy drain PHYSICAL EXAMINATION: GENERAL: This is a chronically ill-appearing, elderly woman who is in no distress. HEENT: Head atraumatic, normocephalic. Sclerae anicteric. Buccal mucosa dry. NECK: Supple, trachea midline. CHEST: Rise symmetrical. Breath sounds diminished to bases. HEART: S1, S2. ABDOMEN: Soft, bowel sounds present. EXTREMITIES: Without cyanosis. ASSESSMENT: 1. Sepsis with bacteremia 2 to #2, s/p PICC dc'd. 2. Polymicrobial urinary tract infection, repeat urine cx + C albicans. 3. End-stage renal disease, hemodialysis dependent. 4. 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 5. Dysphagia. 6. History of cardiopulmonary arrest. 7. Acute gangrenous cholecystitis, s/p IR drainage catheter PLAN: Clinically stable, repeat bld cx 12/12 negative, continue abx. Continue NPO , f/u surgical and GI rec-s, f/u fluid cx DW staff Problems: Consultation Date/Type/Reason Admit Date/Time Sep 20, 2016 at 19:21 Initial Consult Date 09/23/16 Type of Consultation: ID Referring Provider: ZANDRA ROBISON MD, [facility] Exam/Review of Systems Vital Signs Vitals Vital Signs Date Time Temp Pulse Resp B/P Pulse Ox O2 Delivery O2 Flow Rate FiO2 12/17/16 10:30 70 12/17/16 08:09 97.7 18 100 12/17/16 02:00 21 12/16/16 20:30 127/65 12/16/16 13:53 Room Air 12/16/16 12:45 2.0 Intake and Output 12/16/16 12/16/16 12/17/16 15:00 23:00 07:00 Intake Total 200 ml 380 ml 1230 ml Output Total 180 ml 55 ml Balance 20 ml 380 ml 1175 ml Results Result Diagram: 12/16/16 0430 12/16/16 0430 Results 24 hrs Laboratory Tests Test 12/16/16 14:17 12/16/16 21:04 12/17/16 02:10 12/17/16 06:03 Bedside Glucose 104 147 201 192 Test 12/17/16 09:34 Bedside Glucose 141 Medications Medications Current Medications Acetaminophen (Tylenol Liquid) 650 mg Q4H PRN NGT PAIN AND OR ELEVATED TEMP Last administered on 12/16/16 20:20; Admin Dose 650 MG; Start 09/21/16 at 02:00 Epoetin Rja (Epogen (Esrd)) 10,000 units TuThSa@17 SC Last administered on 18:18; Admin Dose 10,000 UNITS; Start 09/26/16 at 17:00 IV Flush (NS 10 ml) 10 ml PRN PRN IV IV PROTOCOL Last administered on 12/12/16 21:49; Admin Dose 10 ML; Start 09/26/16 at 17:30 Lactulose (Enulose) 20 gm BID PRN PO CONSTIPATION Last administered on 05:34; Admin Dose 20 GM; Start 10/23/16 at 10:30 Amylase/Lipase/ Protease (CREON ([id number])) 3 cap Q6 NGT Last administered on 12/17/16 06:30; Admin Dose 3 CAP; Start 10/29/16 at 13:00 Latanoprost (Xalatan) 1 drop HS BOTH EYES Last administered on 12/16/16 20:23 ; Admin Dose 1 DROP; Start 10/31/16 at 21:00 Dorzolamide/ Timolol (Cosopt) 1 drop BID BOTH EYES Last administered on 11:06; Admin Dose 1 DROP; Start 10/31/16 at 21:00 Glucagon (Glucagen) 1 mg Q15M PRN IM DECREASED GLUCOSE Last administered on 12/13 06:04; Admin Dose 1 MG; Start 11/03/16 at 18:00 Ondansetron HCl (Zofran Inj) 4 mg Q4H PRN IV NAUSEA AND/OR VOMITING Last administered on 12/16/16 05:48; Admin Dose 4 MG; Start 11/04/16 at 23:00 Eye Lubricant (Artificial Tears Oph) 2 drop QID BOTH EYES Last administered on 12/17/16 11:06; Admin Dose 2 DROP; Start 11/07/16 at 09:00 Morphine Sulfate (morphine) 1 mg Q3H PRN IV pain Last administered on 12/10/16 08:16; Admin Dose 1 MG; Start 11/10/16 at 08:00 Miscellaneous Information 1 ea NOTE XX ; Start 11/14/16 at 10:00 Glucose (Glutose) 15 gm Q15M PRN PO DECREASED GLUCOSE; Start 11/14/16 at 10:00 Glucose (Glutose) 22.5 gm Q15M PRN PO DECREASED GLUCOSE; Start 11/14/16 at 10: 00 Dextrose (D50w Syringe) 25 ml Q15M PRN IV DECREASED GLUCOSE Last administered on 12/13/16 10:08; Admin Dose 25 ML; Start 11/14/16 at 10:00 Dextrose (D50w Syringe) 50 ml Q15M PRN IV DECREASED GLUCOSE Last administered on 12/07/16 05:29; Admin Dose 50 ML; Start 11/14/16 at 10:00 Glucose (Glutose) 15 gm Q15M PRN BUCCAL DECREASED GLUCOSE; Start 11/14/16 at 10 :00 Escitalopram Oxalate (Lexapro) 10 mg DAILY GTB Last administered on 12/17/16 11:06; Admin Dose 10 MG; Start 11/16/16 at 12:30 Lactobacillus Acidophilus (Florajen3 Capsule) 1 each TID PEG Last administered on 12/17/16 11:06; Admin Dose 1 EACH; Start 11/23/16 at 21:00 Calcium Carbonate (Tums) 500 mg TID PEG Last administered on 12/17/16 11:06; Admin Dose 500 MG; Start 11/23/16 at 21:00 Metoprolol Tartrate (Lopressor) 25 mg BID GTB Last administered on 12/16/16 20 :22; Admin Dose 25 MG; Start 11/23/16 at 21:00 Insulin Aspart (Novolog Insulin Pen) (Adult SC Insulin - Mild Algorithm)... Q4 SC Last administered on 12/17/16 06:30; Admin Dose 2 UNIT; Start 12/02/16 at 01:00 Metoclopramide HCl (Reglan) 5 mg Q6 PEG Last administered on 12/17/16 06:30; Admin Dose 5 MG; Start 12/03/16 at 01:00 Aspirin (Aspirin) 81 mg MONWEDFRI GTB ; Start 12/09/16 at 09:00; Status Future Hold Clopidogrel Bisulfate (plaVIX) 75 mg MONWEDFRI GTB ; Start 12/09/16 at 09:00; Status Future Hold Lansoprazole (Prevacid) 30 mg DAILY@06 GTB Last administered on 12/17/16 06:30 ; Admin Dose 30 MG; Start 12/12/16 at 06:00 Insulin Glargine (Lantus) 26 unit DAILY@08 SC ; Start 12/13/16 at 08:00; Status Future Hold Fluconazole (Diflucan) 100 mg DAILY PO Last administered on 12/17/16 11:06; Admin Dose 100 MG; Start 12/13/16 at 12:00 ROSALINA SIMS NP Dec 17, 2016 12:19
--- NOTE | 2016-12-17 14:07 | RADRPT ---
PROCEDURE: XR Abdomen. CLINICAL INDICATION: Abdominal pain and distension. TECHNIQUE: AP abdomen x-ray. COMPARISON: December 14, [address] December 13, 2016 FINDINGS: Gastrostomy tube has its distal end over the expected location of the stomach. Small amount of gas is seen in the distal stomach. Scattered air and stool are noted in the colon. No dilated loops of small bowel are observed. No organomegaly is observed. Cholecystostomy tube is identified over the right upper quadrant. Surgical clips are seen over the left pelvis. Degenerative changes are seen in the hips and spine. IMPRESSION: Gastrostomy tube with its distal end over the expected location of the stomach. Nonspecific bowel gas pattern. If further characterization of the abdomen is needed repeat CT should be considered. RPTAT: AA .Ovidio Otoole MD, Date Time Electronically viewed and signed by .Ovidio Otoole MD, on 12/17/2016 14:07 .P/
--- NOTE | 2016-12-17 14:46 | CONS ---
Date/Time of Note Date/Time of Note DATE: 12/17/16 TIME: 14:40 Assessment/Plan Assessment/Plan Chief Complaint/Hosp Course 1. Acute Renal Failure due to ATN . She is now on maintenance hemodialysis T T S . She had hemodialysis treatment this morning.. 2. ALOC , she continues to be very weak and lethargic . She is confused now.. 3. She had a cholecystostomy yesterday. 4. CHF , her chest x-ray shows some clearing, she is having fluid removed with dialysis and is overall better with fluid balance. 5. hypocalcemia/hypoalbuminemia , calcium is higher 6. anemia , She has no active GI bleeding now. 7. peripheral vascular disease .gangrene of toes of both feet . 8. respiratory failure , pulmonary function has improved . 9 dysphagia , she has a PEG . She now has been cleared to start eating. 10. discharge planning . She can be discharged to home or SNF , with outpatient dialysis . 11. DM , tube feeding is being restarted. Will restart Lantus insulin in the morning. . Problems: Consultation Date/Type/Reason Admit Date/Time Sep 20, 2016 at 19:21 Initial Consult Date 09/23/16 Type of Consultation: ID Referring Provider: ZANDRA ROBISON MD, [facility] 24 HR Interval Summary Free Text/Dictation She is awake but she is confused. She does not remember being dialyzed this morning. Constitutional: disoriented Exam/Review of Systems Vital Signs Vitals Vital Signs Date Time Temp Pulse Resp B/P Pulse Ox O2 Delivery O2 Flow Rate FiO2 12/17/16 10:30 70 20 12/17/16 08:09 97.7 100 12/17/16 02:00 21 12/16/16 20:30 127/65 12/16/16 13:53 Room Air 12/16/16 12:45 2.0 Intake and Output 12/16/16 12/16/16 12/17/16 15:00 23:00 07:00 Intake Total 200 ml 380 ml 1230 ml Output Total 180 ml 55 ml Balance 20 ml 380 ml 1175 ml Exam Constitutional: alert Psych: confusion Head: normocephalic Respiratory: clear to auscultation, diminished breath sounds Cardiovascular: regular rate and rhythm Gastrointestinal: non-tender, soft Musculoskeletal: nl extremities to inspection Results Result Diagram: 12/16/16 0430 12/16/16 0430 Results 24 hrs Laboratory Tests Test 12/16/16 21:04 12/17/16 02:10 12/17/16 06:03 12/17/16 09:34 Bedside Glucose 147 201 192 141 Test 12/17/16 13:16 Bedside Glucose 174 Medications Medications Current Medications Acetaminophen (Tylenol Liquid) 650 mg Q4H PRN NGT PAIN AND OR ELEVATED TEMP Last administered on 12/16/16 20:20; Admin Dose 650 MG; Start 09/21/16 at 02:00 Epoetin Raj (Epogen (Esrd)) 10,000 units TuThSa@17 SC Last administered on 18:18; Admin Dose 10,000 UNITS; Start 09/26/16 at 17:00 IV Flush (NS 10 ml) 10 ml PRN PRN IV IV PROTOCOL Last administered on 12/12/16 21:49; Admin Dose 10 ML; Start 09/26/16 at 17:30 Lactulose (Enulose) 20 gm BID PRN PO CONSTIPATION Last administered on 05:34; Admin Dose 20 GM; Start 10/23/16 at 10:30 Amylase/Lipase/ Protease (CREON (12z-38k-60k)) 3 cap Q6 NGT Last administered on 12/17/16 06:30; Admin Dose 3 CAP; Start 10/29/16 at 13:00 Latanoprost (Xalatan) 1 drop HS BOTH EYES Last administered on 12/16/16 20:23 ; Admin Dose 1 DROP; Start 10/31/16 at 21:00 Dorzolamide/ Timolol (Cosopt) 1 drop BID BOTH EYES Last administered on 11:06; Admin Dose 1 DROP; Start 10/31/16 at 21:00 Glucagon (Glucagen) 1 mg Q15M PRN IM DECREASED GLUCOSE Last administered on 12/13 06:04; Admin Dose 1 MG; Start 11/03/16 at 18:00 Ondansetron HCl (Zofran Inj) 4 mg Q4H PRN IV NAUSEA AND/OR VOMITING Last administered on 12/16/16 05:48; Admin Dose 4 MG; Start 11/04/16 at 23:00 Eye Lubricant (Artificial Tears Oph) 2 drop QID BOTH EYES Last administered on 12/17/16 11:06; Admin Dose 2 DROP; Start 11/07/16 at 09:00 Morphine Sulfate (morphine) 1 mg Q3H PRN IV pain Last administered on 12/10/16 08:16; Admin Dose 1 MG; Start 11/10/16 at 08:00 Miscellaneous Information 1 ea NOTE XX ; Start 11/14/16 at 10:00 Glucose (Glutose) 15 gm Q15M PRN PO DECREASED GLUCOSE; Start 11/14/16 at 10:00 Glucose (Glutose) 22.5 gm Q15M PRN PO DECREASED GLUCOSE; Start 11/14/16 at 10: 00 Dextrose (D50w Syringe) 25 ml Q15M PRN IV DECREASED GLUCOSE Last administered on 12/13/16 10:08; Admin Dose 25 ML; Start 11/14/16 at 10:00 Dextrose (D50w Syringe) 50 ml Q15M PRN IV DECREASED GLUCOSE Last administered on 12/07/16 05:29; Admin Dose 50 ML; Start 11/14/16 at 10:00 Glucose (Glutose) 15 gm Q15M PRN BUCCAL DECREASED GLUCOSE; Start 11/14/16 at 10 :00 Escitalopram Oxalate (Lexapro) 10 mg DAILY GTB Last administered on 12/17/16 11:06; Admin Dose 10 MG; Start 11/16/16 at 12:30 Lactobacillus Acidophilus (Florajen3 Capsule) 1 each TID PEG Last administered on 12/17/16 11:06; Admin Dose 1 EACH; Start 11/23/16 at 21:00 Calcium Carbonate (Tums) 500 mg TID PEG Last administered on 12/17/16 11:06; Admin Dose 500 MG; Start 11/23/16 at 21:00 Metoprolol Tartrate (Lopressor) 25 mg BID GTB Last administered on 12/16/16 20 :22; Admin Dose 25 MG; Start 11/23/16 at 21:00 Insulin Aspart (Novolog Insulin Pen) (Adult SC Insulin - Mild Algorithm)... Q4 SC Last administered on 12/17/16 06:30; Admin Dose 2 UNIT; Start 12/02/16 at 01:00 Metoclopramide HCl (Reglan) 5 mg Q6 PEG Last administered on 12/17/16 06:30; Admin Dose 5 MG; Start 12/03/16 at 01:00 Aspirin (Aspirin) 81 mg MONWEDFRI GTB ; Start 12/09/16 at 09:00; Status Future Hold Clopidogrel Bisulfate (plaVIX) 75 mg MONWEDFRI GTB ; Start 12/09/16 at 09:00; Status Future Hold Lansoprazole (Prevacid) 30 mg DAILY@06 GTB Last administered on 12/17/16 06:30 ; Admin Dose 30 MG; Start 12/12/16 at 06:00 Insulin Glargine (Lantus) 26 unit DAILY@08 SC ; Start 12/13/16 at 08:00; Status Future Hold Fluconazole (Diflucan) 100 mg DAILY PO Last administered on 12/17/16 11:06; Admin Dose 100 MG; Start 12/13/16 at 12:00 DAMIR MARTINEZ MD Dec 17, 2016 14:46
--- NOTE | 2016-12-17 15:48 | PN ---
Date/Time of Note Date/Time of Note DATE: 12/16/16 TIME: 12:44 Assessment/Plan VTE Prophylaxis VTE Prophylaxis Intervention: other (hep w/ dialysis) Lines/Catheters IV Catheter Type (from Nrsg): Peripheral IV Central line still needed: No Urinary Cath still in place: No Assessment/Plan Assessment/Plan 1. s/p choley 2. sepsis/ uti--on atbx 3. arf/ anemia 4. pulm effusion 5. dm 6. cad/ htn/ pad 7. depression/ obesity/ musc weak ---on iv, no feed ---cont atbx ---cont dialysis ---cont all supportive cares Subjective 24 Hr Interval Summary Free Text/Dictation dry mouth, no pain SHAMA LPOEZ MD Dec 17, 2016 15:48
--- NOTE | 2016-12-17 15:52 | PN ---
Date/Time of Note Date/Time of Note DATE: 12/17/16 TIME: 15:48 Assessment/Plan VTE Prophylaxis VTE Prophylaxis Intervention: other (hep w/ dialysis) Lines/Catheters IV Catheter Type (from Nrsg): Peripheral IV Central line still needed: No Urinary Cath still in place: No Assessment/Plan Assessment/Plan 1. s/p choley 2. uti/ sepsis 3. arf/ anemia 4. pulm effusion 5. dm 6. cad/ htn/ pad 7. depression/ obesity/ musc weak/ peg feed ---cont arbx ---dialysis ---restart peg tube feed slowly ---cont all supportive cares ---poor guarded px ---anticipate transfer to [facility] by the end of this week Subjective 24 Hr Interval Summary Free Text/Dictation no complaints Exam/Review of Systems Vital Signs Vitals Vital Signs Date Time Temp Pulse Resp B/P Pulse Ox O2 Delivery O2 Flow Rate FiO2 12/17/16 14:28 83 18 96 21 12/17/16 08:09 97.7 12/16/16 20:30 127/65 12/16/16 13:53 Room Air 12/16/16 12:45 2.0 Intake and Output 12/16/16 12/16/16 12/17/16 14:59 22:59 06:59 Intake Total 200 ml 380 ml 1230 ml Output Total 180 ml 55 ml Balance 20 ml 380 ml 1175 ml Exam kub looking good in bed, not much mobility, toes blue black rr dec bs bibasilar belly soft Results Result Diagram: 12/16/16 0430 12/16/16 0430 Results 24 hrs Laboratory Tests Test 12/16/16 21:04 12/17/16 02:10 12/17/16 06:03 12/17/16 09:34 Bedside Glucose 147 201 192 141 Test 12/17/16 13:16 Bedside Glucose 174 Medications Medications Current Medications Acetaminophen (Tylenol Liquid) 650 mg Q4H PRN NGT PAIN AND OR ELEVATED TEMP Last administered on 12/16/16 20:20; Admin Dose 650 MG; Start 09/21/16 at 02:00 Epoetin Raj (Epogen (Esrd)) 10,000 units TuThSa@17 SC Last administered on 18:18; Admin Dose 10,000 UNITS; Start 09/26/16 at 17:00 IV Flush (NS 10 ml) 10 ml PRN PRN IV IV PROTOCOL Last administered on 12/12/16 21:49; Admin Dose 10 ML; Start 09/26/16 at 17:30 Lactulose (Enulose) 20 gm BID PRN PO CONSTIPATION Last administered on 05:34; Admin Dose 20 GM; Start 10/23/16 at 10:30 Amylase/Lipase/ Protease (CREON (12n-48k-60k)) 3 cap Q6 NGT Last administered on 12/17/16 06:30; Admin Dose 3 CAP; Start 10/29/16 at 13:00 Latanoprost (Xalatan) 1 drop HS BOTH EYES Last administered on 12/16/16 20:23 ; Admin Dose 1 DROP; Start 10/31/16 at 21:00 Dorzolamide/ Timolol (Cosopt) 1 drop BID BOTH EYES Last administered on 11:06; Admin Dose 1 DROP; Start 10/31/16 at 21:00 Glucagon (Glucagen) 1 mg Q15M PRN IM DECREASED GLUCOSE Last administered on 12/13 06:04; Admin Dose 1 MG; Start 11/03/16 at 18:00 Ondansetron HCl (Zofran Inj) 4 mg Q4H PRN IV NAUSEA AND/OR VOMITING Last administered on 12/16/16 05:48; Admin Dose 4 MG; Start 11/04/16 at 23:00 Eye Lubricant (Artificial Tears Oph) 2 drop QID BOTH EYES Last administered on 12/17/16 11:06; Admin Dose 2 DROP; Start 11/07/16 at 09:00 Morphine Sulfate (morphine) 1 mg Q3H PRN IV pain Last administered on 12/10/16 08:16; Admin Dose 1 MG; Start 11/10/16 at 08:00 Miscellaneous Information 1 ea NOTE XX ; Start 11/14/16 at 10:00 Glucose (Glutose) 15 gm Q15M PRN PO DECREASED GLUCOSE; Start 11/14/16 at 10:00 Glucose (Glutose) 22.5 gm Q15M PRN PO DECREASED GLUCOSE; Start 11/14/16 at 10: 00 Dextrose (D50w Syringe) 25 ml Q15M PRN IV DECREASED GLUCOSE Last administered on 12/13/16 10:08; Admin Dose 25 ML; Start 11/14/16 at 10:00 Dextrose (D50w Syringe) 50 ml Q15M PRN IV DECREASED GLUCOSE Last administered on 12/07/16 05:29; Admin Dose 50 ML; Start 11/14/16 at 10:00 Glucose (Glutose) 15 gm Q15M PRN BUCCAL DECREASED GLUCOSE; Start 11/14/16 at 10 :00 Escitalopram Oxalate (Lexapro) 10 mg DAILY GTB Last administered on 12/17/16 11:06; Admin Dose 10 MG; Start 11/16/16 at 12:30 Lactobacillus Acidophilus (Florajen3 Capsule) 1 each TID PEG Last administered on 12/17/16 11:06; Admin Dose 1 EACH; Start 11/23/16 at 21:00 Calcium Carbonate (Tums) 500 mg TID PEG Last administered on 12/17/16 11:06; Admin Dose 500 MG; Start 11/23/16 at 21:00 Metoprolol Tartrate (Lopressor) 25 mg BID GTB Last administered on 12/16/16 20 :22; Admin Dose 25 MG; Start 11/23/16 at 21:00 Insulin Aspart (Novolog Insulin Pen) (Adult SC Insulin - Mild Algorithm)... Q4 SC Last administered on 12/17/16 06:30; Admin Dose 2 UNIT; Start 12/02/16 at 01:00 Metoclopramide HCl (Reglan) 5 mg Q6 PEG Last administered on 12/17/16 06:30; Admin Dose 5 MG; Start 12/03/16 at 01:00 Aspirin (Aspirin) 81 mg MONWEDFRI GTB ; Start 12/09/16 at 09:00; Status Future Hold Clopidogrel Bisulfate (plaVIX) 75 mg MONWEDFRI GTB ; Start 12/09/16 at 09:00; Status Future Hold Lansoprazole (Prevacid) 30 mg DAILY@06 GTB Last administered on 12/17/16 06:30 ; Admin Dose 30 MG; Start 12/12/16 at 06:00 Insulin Glargine (Lantus) 26 unit DAILY@08 SC ; Start 12/13/16 at 08:00; Status Future hold Fluconazole (Diflucan) 100 mg DAILY PO Last administered on 12/17/16 11:06; Admin Dose 100 MG; Start 12/13/16 at 12:00 SHAMA LOPEZ MD Dec 17, 2016 15:52
--- NOTE | 2016-12-17 18:12 | CONS ---
DATE OF ADMISSION: 09/20/2016 DATE OF CONSULTATION: TYPE OF CONSULTATION: Gastroenterology. HISTORY OF PRESENT ILLNESS: The patient is unable to give any history. She is nonverbal for the ti me being. The patient underwent percutaneous cholecystostomy and at this time she is draining dark greenish li quid and she was having acute cholecystitis, but she is a poor candidate for surgery, hence percutan eous drainage has been performed. At this time, patient is alert. ABDOMEN: Soft. Gallbladder is draining good through the drainage tube. LABORATORY WORKUP: WBC count 11,500, hemoglobin 10.8. CLINICAL IMPRESSION: The patient presenting with history of acute cholecystitis, status post percut aneous gallbladder drainage. PLAN: At this time, continue to drain. Recommend a culture from gallbladder secretions. Dictated By: CIELO SANCHEZ MD NC/NTS Conf#: [id number] DID#: [id number] CC: SHAMA LOPEZ MD;*EndCC*
[2016-12-17] MEDS: EPOETIN 10000 UNITS/1 ML INJ (ESRD) SC SCH (18:36)
[2016-12-17] MEDS: LATANOPROST 0.005% 2.5 ML OPH BOTH EYES SCH (21:03)
[2016-12-17] MEDS: ZOLPIDEM 5 MG TAB PO PRN (21:09)
[2016-12-17] MEDS: ACETAMINOPHEN 650MG/20.3ML CUP NGT PRN (21:33)
[2016-12-18] MEDS: CREON (12k-38k-60k) 1 CAP NGT SCH ×5 (00:17→21:07)
[2016-12-18] MEDS: METOCLOPRAMIDE 10 MG TAB PEG SCH ×4 (00:18→18:12)
[2016-12-18] MEDS: INSULIN ASPART [NOVOLOG] 3 ML PEN SC SCH ×4 (00:27→13:06)
[2016-12-18] MEDS: IPRATROPIUM (NEB) 0.5 MG/2.5 ML AMP HHN SCH ×4 (01:37→19:24)
[2016-12-18] MEDS: LEVALBUTEROL (NEB) 1.25 MG/0.5 ML AMP HHN SCH ×4 (01:37→19:24)
[2016-12-18] MEDS: LANSOPRAZOLE 30 MG CAP GTB SCH (05:11)
[2016-12-18 06:25] LABS: ADD SCAN DIFF NO
[2016-12-18 06:28] LABS: EOSINOPHILS # 0.1 10^3/ul (0.0-0.5); HEMATOCRIT 36.5 % (37.0-47.0); HEMOGLOBIN 11.1 g/dl (12.0-16.0); MEAN CORPUSCULAR HEMOGLOBIN 27.9 pg (29.0-33.0); MEAN CORPUSCULAR HGB CONC 30.4 g/dl (32.0-37.0); MEAN CORPUSCULAR VOLUME 91.7 fl (82.0-101.0); MEAN PLATELET VOLUME 10.7 fl (7.4-10.4); NUCLEATED RED BLOOD CELLS% 0.6 /100WBC (0.0-0.0); RED BLOOD COUNT 3.98 10^6/ul (4.20-5.40); RED CELL DISTRIBUTION WIDTH 17.3 % (11.5-14.5)
[2016-12-18] MEDS: ACETAMINOPHEN 650MG/20.3ML CUP NGT PRN (06:32)
[2016-12-18 07:01] LABS: ALBUMIN 3.1 g/dl (3.3-4.9); BILIRUBIN,INDIRECT 0.1 mg/dl (0-1.1); BILIRUBIN,TOTAL 0.1 mg/dl (0.2-1.3); CALCIUM 8.9 mg/dl (8.4-10.2); CREATININE 2.1 mg/dl (0.44-1.00); POTASSIUM 3.5 mmol/L (3.5-5.1); TOTAL PROTEIN 6.2 g/dl (6.1-8.1)
[2016-12-18 07:13] VITALS: BP 109/58; RESP 19
[2016-12-18] MEDS: METOPROLOL 25 MG TAB GTB SCH ×2 (09:40→21:08)
[2016-12-18] MEDS: ESCITALOPRAM 10 MG TAB GTB SCH (09:40)
[2016-12-18] MEDS: L ACIDOPHIL/B LACTIS/B LONGUM CAPSULE PEG SCH ×3 (09:40→21:14)
[2016-12-18] MEDS: CALCIUM CARBONATE 500 MG CHEW TAB PEG SCH ×3 (09:40→21:07)
[2016-12-18] MEDS: FLUCONAZOLE 100 MG TAB PO SCH (09:40)
[2016-12-18] MEDS: ARTIFICIAL TEARS 15 ML OPH BOTH EYES SCH ×4 (09:43→21:12)
[2016-12-18] MEDS: DORZOLAMIDE/TIMOLOL 10 ML OPH BOTH EYES SCH ×2 (09:43→21:13)
[2016-12-18] MEDS: INSULIN GLARGINE [LANtus] 3 ML PEN SC SCH (09:43)
[2016-12-18 10:29] LABS: LYMPHOCYTES # 1.2 10^3/ul (0.8-2.9); MONOCYTE # 0.5 10^3/ul (0.3-0.9); NEUTROPHIL # 8.8 10^3/ul (1.6-7.5)
[2016-12-18 10:30] LABS: BASOPHIL # 0.2 10^3/ul (0.0-0.1); BASOPHILS % 0.2 % (0.0-2.0); PLATELET COUNT 270 10^3/UL (140-415)
[2016-12-18 10:31] LABS: NUCLEATED RED BLOOD CELLS # 0.1 10^3/ul (0.0-0.0)
--- NOTE | 2016-12-18 13:43 | CONS ---
Date/Time of Note Date/Time of Note DATE: 12/18/16 TIME: 13:37 Assessment/Plan Assessment/Plan Chief Complaint/Hosp Course 1. Acute Renal Failure due to ATN . She is now on maintenance hemodialysis T S . I will order hemodialysis for tomorrow. 2. ALOC , she continues to be very weak and lethargic . She seems more lucid today. 3. She had a cholecystostomy yesterday and is draining dark fluid. 4. CHF , her chest x-ray shows some clearing, she is having fluid removed with dialysis and is overall better with fluid balance. 5. hypocalcemia/hypoalbuminemia , calcium is higher 6. anemia , She has no active GI bleeding now. 7. peripheral vascular disease .gangrene of toes of both feet . 8. respiratory failure , pulmonary function has improved . 9 dysphagia , she has a PEG . 10. discharge planning . She can be discharged to home or SNF , with outpatient dialysis . 11. DM , tube feeding is being restarted and her blood sugar is high. I will increase her dose of Lantus insulin 32 units daily starting tomorrow morning. I will also change her to a moderate NovoLog insulin sliding scale. . Problems: Consultation Date/Type/Reason Admit Date/Time Sep 20, 2016 at 19:21 Initial Consult Date 09/23/16 Type of Consultation: renal Referring Provider: ZANDRA ROBISON MD, [facility] HR Interval Summary Free Text/Dictation She is awake and responsive today. Her blood sugars have been high because she is back on her tube feeding which she is tolerating. Constitutional: improved, no complaints Exam/Review of Systems Vital Signs Vitals Vital Signs Date Time Temp Pulse Resp B/P Pulse Ox O2 Delivery O2 Flow Rate FiO2 12/18/16 08:36 73 18 96 21 12/18/16 08:00 Nasal Cannula 12/18/16 07:13 98.7 109/58 12/17/16 08:00 2.0 Intake and Output 12/17/16 12/17/16 12/18/16 15:00 23:00 07:00 Intake Total 500 ml 59 ml 440 ml Output Total 3500 ml 10 ml 10 ml Balance -3000 ml 49 ml 430 ml Exam Constitutional: alert, frail, obese, oriented Respiratory: clear to auscultation, diminished breath sounds Cardiovascular: edema, regular rate and rhythm Gastrointestinal: soft Musculoskeletal: nl extremities to inspection Results Result Diagram: 12/18/16 0500 12/18/16 0500 Results 24 hrs Laboratory Tests Test 12/17/16 17:32 12/17/16 21:30 12/18/16 00:19 12/18/16 05:00 Bedside Glucose 183 195 181 White Blood Count 12.0 H Red Blood Count 3.98 L Hemoglobin 11.1 L Hematocrit 36.5 L Mean Corpuscular Volume 91.7 Mean Corpuscular Hemoglobin 27.9 L Mean Corpuscular Hemoglobin Concent 30.4 L Red Cell Distribution Width 17.3 H Platelet Count 270 # Mean Platelet Volume 10.7 H Neutrophils % 73.0 Lymphocytes % 10.0 L Monocytes % 4.0 Eosinophils % 1.0 Basophils % 0.2 Nucleated Red Blood Cells % 0.6 H Neutrophils # 8.8 H Lymphocytes # 1.2 Monocytes # 0.5 Eosinophils # 0.1 Basophils # 0.2 H Nucleated Red Blood Cells # 0.1 H Sodium Level 137 Potassium Level 3.5 Chloride Level 100 Carbon Dioxide Level 24 Anion Gap 17 H Blood Urea Nitrogen 30 H Creatinine 2.10 H Glucose Level 195 Calcium Level 8.9 Total Bilirubin 0.1 L Direct Bilirubin 0.00 Indirect Bilirubin 0.1 Aspartate Amino Transf (AST/SGOT) 33 Alanine Aminotransferase (ALT/SGPT) 33 Alkaline Phosphatase 195 H Total Protein 6.2 Albumin 3.1 L Globulin 3.10 Albumin/Globulin Ratio 1.00 Cholesterol Level 92 L Test 12/18/16 05:13 12/18/16 09:37 12/18/16 13:00 Bedside Glucose 196 223 H 230 H Medications Medications Current Medications Acetaminophen (Tylenol Liquid) 650 mg Q4H PRN NGT PAIN AND OR ELEVATED TEMP Last administered on 12/18/16 06:32; Admin Dose 650 MG; Start 09/21/16 at 02:00 Epoetin Raj (Epogen (Esrd)) 10,000 units TuThSa@17 SC Last administered on 18:36; Admin Dose 10,000 UNITS; Start 09/26/16 at 17:00 IV Flush (NS 10 ml) 10 ml PRN PRN IV IV PROTOCOL Last administered on 12/12/16 21:49; Admin Dose 10 ML; Start 09/26/16 at 17:30 Lactulose (Enulose) 20 gm BID PRN PO CONSTIPATION Last administered on 05:34; Admin Dose 20 GM; Start 10/23/16 at 10:30 Amylase/Lipase/ Protease (CREON ([id number])) 3 cap Q6 NGT Last administered on 12/18/16 12:58; Admin Dose 1 CAP; Start 10/29/16 at 13:00 Latanoprost (Xalatan) 1 drop HS BOTH EYES Last administered on 12/17/16 21:03 ; Admin Dose 1 DROP; Start 10/31/16 at 21:00 Dorzolamide/ Timolol (Cosopt) 1 drop BID BOTH EYES Last administered on 09:43; Admin Dose 1 DROP; Start 10/31/16 at 21:00 Glucagon (Glucagen) 1 mg Q15M PRN IM DECREASED GLUCOSE Last administered on 12/13 06:04; Admin Dose 1 MG; Start 11/03/16 at 18:00 Ondansetron HCl (Zofran Inj) 4 mg Q4H PRN IV NAUSEA AND/OR VOMITING Last administered on 12/16/16 05:48; Admin Dose 4 MG; Start 11/04/16 at 23:00 Eye Lubricant (Artificial Tears Oph) 2 drop QID BOTH EYES Last administered on 12/18/16 12:58; Admin Dose 2 DROP; Start 11/07/16 at 09:00 Morphine Sulfate (morphine) 1 mg Q3H PRN IV pain Last administered on 12/10/16 08:16; Admin Dose 1 MG; Start 11/10/16 at 08:00 Miscellaneous Information 1 ea NOTE XX ; Start 11/14/16 at 10:00 Glucose (Glutose) 15 gm Q15M PRN PO DECREASED GLUCOSE; Start 11/14/16 at 10:00 Glucose (Glutose) 22.5 gm Q15M PRN PO DECREASED GLUCOSE; Start 11/14/16 at 10: 00 Dextrose (D50w Syringe) 25 ml Q15M PRN IV DECREASED GLUCOSE Last administered on 12/13/16 10:08; Admin Dose 25 ML; Start 11/14/16 at 10:00 Dextrose (D50w Syringe) 50 ml Q15M PRN IV DECREASED GLUCOSE Last administered on 12/07/16 05:29; Admin Dose 50 ML; Start 11/14/16 at 10:00 Glucose (Glutose) 15 gm Q15M PRN BUCCAL DECREASED GLUCOSE; Start 11/14/16 at 10 :00 Escitalopram Oxalate (Lexapro) 10 mg DAILY GTB Last administered on 12/18/16 09:40; Admin Dose 10 MG; Start 11/16/16 at 12:30 Lactobacillus Acidophilus (Florajen3 Capsule) 1 each TID PEG Last administered on 12/18/16 13:14; Admin Dose 1 EACH; Start 11/23/16 at 21:00 Calcium Carbonate (Tums) 500 mg TID PEG Last administered on 12/18/16 12:58; Admin Dose 500 MG; Start 11/23/16 at 21:00 Metoprolol Tartrate (Lopressor) 25 mg BID GTB Last administered on 12/18/16 09 :40; Admin Dose 25 MG; Start 11/23/16 at 21:00 Insulin Aspart (Novolog Insulin Pen) (Adult SC Insulin - Mild Algorithm)... Q4 SC Last administered on 12/18/16 13:06; Admin Dose 3 UNIT; Start 12/02/16 at 01:00 Metoclopramide HCl (Reglan) 5 mg Q6 PEG Last administered on 12/18/16 12:58; Admin Dose 5 MG; Start 12/03/16 at 01:00 Aspirin (Aspirin) 81 mg MONWEDFRI GTB ; Start 12/09/16 at 09:00; Status Future Hold Clopidogrel Bisulfate (plaVIX) 75 mg MONWEDFRI GTB ; Start 12/09/16 at 09:00; Status Future Hold Lansoprazole (Prevacid) 30 mg DAILY@06 GTB Last administered on 12/18/16 05:11 ; Admin Dose 30 MG; Start 12/12/16 at 06:00 Insulin Glargine (Lantus) 26 unit DAILY@08 SC Last administered on 12/18/16 09 :43; Admin Dose 26 UNIT; Start 12/13/16 at 08:00; Status Future hold Fluconazole (Diflucan) 100 mg DAILY PO Last administered on 12/18/16 09:40; Admin Dose 100 MG; Start 12/13/16 at 12:00 DAMIR MARTINEZ MD Dec 18, 2016 13:43
--- NOTE | 2016-12-18 14:08 | CONS ---
Date/Time of Note Date/Time of Note DATE: 12/18/16 TIME: 14:05 Assessment/Plan Assessment/Plan Chief Complaint/Hosp Course SUBJECTIVE: No acute changes overnight. The patient lying comfortably in bed. No fevers MICROBIOLOGY: Fluid cultures growing E coli ANTIMICROBIALS: 1. Vancomycin. 2. Merrem 3. Diflucan INDWELLINGS: RSC permacath, PEG, cholecystostomy drain PHYSICAL EXAMINATION: GENERAL: This is a chronically ill-appearing, elderly woman who is in no distress. HEENT: Head atraumatic, normocephalic. Sclerae anicteric. Buccal mucosa dry. NECK: Supple, trachea midline. CHEST: Rise symmetrical. Breath sounds diminished to bases. HEART: S1, S2. ABDOMEN: Soft, bowel sounds present. EXTREMITIES: Without cyanosis. ASSESSMENT: 1. Sepsis with E coli bacteremia, s/p PICC dc'd. 2. Polymicrobial urinary tract infection, repeat urine cx + C albicans. 3. End-stage renal disease, hemodialysis dependent. 4. 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 5. Dysphagia. 6. History of cardiopulmonary arrest. 7. Acute gangrenous cholecystitis, s/p IR drainage==> cx + E coli PLAN: Clinically stable, repeat bld cx 12/12 negative, change Merrem to warren Nelson. F/u surgical and GI rec-s [facility] staff Problems: Consultation Date/Type/Reason Admit Date/Time Sep 20, 2016 at 19:21 Initial Consult Date 09/23/16 Type of Consultation: ID Referring Provider: ZANDRA ROBISON MD, [facility] Exam/Review of Systems Vital Signs Vitals Vital Signs Date Time Temp Pulse Resp B/P Pulse Ox O2 Delivery O2 Flow Rate FiO2 12/18/16 08:36 73 18 96 21 12/18/16 08:00 Nasal Cannula 12/18/16 07:13 98.7 109/58 12/17/16 08:00 2.0 Intake and Output 12/17/16 12/17/16 12/18/16 15:00 23:00 07:00 Intake Total 500 ml 59 ml 440 ml Output Total 3500 ml 10 ml 10 ml Balance -3000 ml 49 ml 430 ml Results Result Diagram: 12/18/16 0500 12/18/16 0500 Results 24 hrs Laboratory Tests Test 12/17/16 17:32 12/17/16 21:30 12/18/16 00:19 12/18/16 05:00 Bedside Glucose 183 195 181 White Blood Count 12.0 H Red Blood Count 3.98 L Hemoglobin 11.1 L Hematocrit 36.5 L Mean Corpuscular Volume 91.7 Mean Corpuscular Hemoglobin 27.9 L Mean Corpuscular Hemoglobin Concent 30.4 L Red Cell Distribution Width 17.3 H Platelet Count 270 # Mean Platelet Volume 10.7 H Neutrophils % 73.0 Lymphocytes % 10.0 L Monocytes % 4.0 Eosinophils % 1.0 Basophils % 0.2 Nucleated Red Blood Cells % 0.6 H Neutrophils # 8.8 H Lymphocytes # 1.2 Monocytes # 0.5 Eosinophils # 0.1 Basophils # 0.2 H Nucleated Red Blood Cells # 0.1 H Sodium Level 137 Potassium Level 3.5 Chloride Level 100 Carbon Dioxide Level 24 Anion Gap 17 H Blood Urea Nitrogen 30 H Creatinine 2.10 H Glucose Level 195 Calcium Level 8.9 Total Bilirubin 0.1 L Direct Bilirubin 0.00 Indirect Bilirubin 0.1 Aspartate Amino Transf (AST/SGOT) 33 Alanine Aminotransferase (ALT/SGPT) 33 Alkaline Phosphatase 195 H Total Protein 6.2 Albumin 3.1 L Globulin 3.10 Albumin/Globulin Ratio 1.00 Cholesterol Level 92 L Test 12/18/16 05:13 12/18/16 09:37 12/18/16 13:00 Bedside Glucose 196 223 H 230 H Medications Medications Current Medications Acetaminophen (Tylenol Liquid) 650 mg Q4H PRN NGT PAIN AND OR ELEVATED TEMP Last administered on 12/18/16 06:32; Admin Dose 650 MG; Start 09/21/16 at 02:00 IV Flush (NS 10 ml) 10 ml PRN PRN IV IV PROTOCOL Last administered on 12/12/16 21:49; Admin Dose 10 ML; Start 09/26/16 at 17:30 Lactulose (Enulose) 20 gm BID PRN PO CONSTIPATION Last administered on 05:34; Admin Dose 20 GM; Start 10/23/16 at 10:30 Amylase/Lipase/ Protease (CREON ([id number])) 3 cap Q6 NGT Last administered on 12/18/16 12:58; Admin Dose 1 CAP; Start 10/29/16 at 13:00 Latanoprost (Xalatan) 1 drop HS BOTH EYES Last administered on 12/17/16 21:03 ; Admin Dose 1 DROP; Start 10/31/16 at 21:00 Dorzolamide/ Timolol (Cosopt) 1 drop BID BOTH EYES Last administered on 09:43; Admin Dose 1 DROP; Start 10/31/16 at 21:00 Glucagon (Glucagen) 1 mg Q15M PRN IM DECREASED GLUCOSE Last administered on 12/13 06:04; Admin Dose 1 MG; Start 11/03/16 at 18:00 Ondansetron HCl (Zofran Inj) 4 mg Q4H PRN IV NAUSEA AND/OR VOMITING Last administered on 12/16/16 05:48; Admin Dose 4 MG; Start 11/04/16 at 23:00 Eye Lubricant (Artificial Tears Oph) 2 drop QID BOTH EYES Last administered on 12/18/16 12:58; Admin Dose 2 DROP; Start 11/07/16 at 09:00 Morphine Sulfate (morphine) 1 mg Q3H PRN IV pain Last administered on 12/10/16 08:16; Admin Dose 1 MG; Start 11/10/16 at 08:00 Miscellaneous Information 1 ea NOTE XX ; Start 11/14/16 at 10:00 Glucose (Glutose) 15 gm Q15M PRN PO DECREASED GLUCOSE; Start 11/14/16 at 10:00 Glucose (Glutose) 22.5 gm Q15M PRN PO DECREASED GLUCOSE; Start 11/14/16 at 10: 00 Dextrose (D50w Syringe) 25 ml Q15M PRN IV DECREASED GLUCOSE Last administered on 12/13/16 10:08; Admin Dose 25 ML; Start 11/14/16 at 10:00 Dextrose (D50w Syringe) 50 ml Q15M PRN IV DECREASED GLUCOSE Last administered on 12/07/16 05:29; Admin Dose 50 ML; Start 11/14/16 at 10:00 Glucose (Glutose) 15 gm Q15M PRN BUCCAL DECREASED GLUCOSE; Start 11/14/16 at 10 :00 Escitalopram Oxalate (Lexapro) 10 mg DAILY GTB Last administered on 12/18/16 09:40; Admin Dose 10 MG; Start 11/16/16 at 12:30 Lactobacillus Acidophilus (Florajen3 Capsule) 1 each TID PEG Last administered on 12/18/16 13:14; Admin Dose 1 EACH; Start 11/23/16 at 21:00 Calcium Carbonate (Tums) 500 mg TID PEG Last administered on 12/18/16 12:58; Admin Dose 500 MG; Start 11/23/16 at 21:00 Metoprolol Tartrate (Lopressor) 25 mg BID GTB Last administered on 12/18/16 09 :40; Admin Dose 25 MG; Start 11/23/16 at 21:00 Metoclopramide HCl (Reglan) 5 mg Q6 PEG Last administered on 12/18/16 12:58; Admin Dose 5 MG; Start 12/03/16 at 01:00 Aspirin (Aspirin) 81 mg MONWEDFRI GTB ; Start 12/09/16 at 09:00; Status Future Hold Clopidogrel Bisulfate (plaVIX) 75 mg MONWEDFRI GTB ; Start 12/09/16 at 09:00; Status Future Hold Lansoprazole (Prevacid) 30 mg DAILY@06 GTB Last administered on 12/18/16 05:11 ; Admin Dose 30 MG; Start 12/12/16 at 06:00 Fluconazole (Diflucan) 100 mg DAILY PO Last administered on 12/18/16 09:40; Admin Dose 100 MG; Start 12/13/16 at 12:00 Insulin Glargine (Lantus) 32 unit DAILY@08 SC ; Start 12/19/16 at 08:00 Insulin Aspart (Novolog Insulin Pen) (Adult SC Insulin - Moder... Q6 SC ; Start 12/18/16 at 18:00 ROSALINA SIMS NP Dec 18, 2016 14:08
--- NOTE | 2016-12-18 15:18 | PN ---
Date/Time of Note Date/Time of Note DATE: 12/18/16 TIME: 15:11 Assessment/Plan VTE Prophylaxis VTE Prophylaxis Intervention: other (hep w/ dialysis) Lines/Catheters IV Catheter Type (from Nrsg): permacath Central line still needed: No Urinary Cath still in place: No Assessment/Plan Assessment/Plan 1. s/p choley, w/ drainage still 2. arf/ anemia 3. depression/ obesity/ weak musc--static debility/ peg feed 4. dm--fluctuant gluc level 5. cad/ pad--needs atcoag 6. pulm effusion ---very guarded px ---per ID, cont atbx ---per GI, post procedure care ---inc tube feed amnt, inc ins dose ---per renal, dialysis ---cont all supportive cares ---awaits transfer to SNF, w/ chem code only, when ok with all specialists Subjective 24 Hr Interval Summary Free Text/Dictation no change, cont discouraged Exam/Review of Systems Vital Signs Vitals Vital Signs Date Time Temp Pulse Resp B/P Pulse Ox O2 Delivery O2 Flow Rate FiO2 12/18/16 14:29 72 16 98 21 12/18/16 08:00 Nasal Cannula 12/18/16 07:13 98.7 109/58 12/17/16 08:00 2.0 Intake and Output 12/17/16 12/17/16 12/18/16 15:00 23:00 07:00 Intake Total 500 ml 59 ml 440 ml Output Total 3500 ml 10 ml 10 ml Balance -3000 ml 49 ml 430 ml Exam obese, remain mostly in bed, very limited ot/pt activities toes blue black rr dec bs rt mid abd choley drain w/ dark fluid Results Result Diagram: 12/18/16 0500 12/18/16 0500 Results 24 hrs Laboratory Tests Test 12/17/16 17:32 12/17/16 21:30 12/18/16 00:19 12/18/16 05:00 Bedside Glucose 183 195 181 White Blood Count 12.0 H Red Blood Count 3.98 L Hemoglobin 11.1 L Hematocrit 36.5 L Mean Corpuscular Volume 91.7 Mean Corpuscular Hemoglobin 27.9 L Mean Corpuscular Hemoglobin Concent 30.4 L Red Cell Distribution Width 17.3 H Platelet Count 270 # Mean Platelet Volume 10.7 H Neutrophils % 73.0 Lymphocytes % 10.0 L Monocytes % 4.0 Eosinophils % 1.0 Basophils % 0.2 Nucleated Red Blood Cells % 0.6 H Neutrophils # 8.8 H Lymphocytes # 1.2 Monocytes # 0.5 Eosinophils # 0.1 Basophils # 0.2 H Nucleated Red Blood Cells # 0.1 H Sodium Level 137 Potassium Level 3.5 Chloride Level 100 Carbon Dioxide Level 24 Anion Gap 17 H Blood Urea Nitrogen 30 H Creatinine 2.10 H Glucose Level 195 Calcium Level 8.9 Total Bilirubin 0.1 L Direct Bilirubin 0.00 Indirect Bilirubin 0.1 Aspartate Amino Transf (AST/SGOT) 33 Alanine Aminotransferase (ALT/SGPT) 33 Alkaline Phosphatase 195 H Total Protein 6.2 Albumin 3.1 L Globulin 3.10 Albumin/Globulin Ratio 1.00 Cholesterol Level 92 L Test 12/18/16 05:13 12/18/16 09:37 12/18/16 13:00 Bedside Glucose 196 223 H 230 H Medications Medications Current Medications Acetaminophen (Tylenol Liquid) 650 mg Q4H PRN NGT PAIN AND OR ELEVATED TEMP Last administered on 12/18/16 06:32; Admin Dose 650 MG; Start 09/21/16 at 02:00 IV Flush (NS 10 ml) 10 ml PRN PRN IV IV PROTOCOL Last administered on 12/12/16 21:49; Admin Dose 10 ML; Start 09/26/16 at 17:30 Lactulose (Enulose) 20 gm BID PRN PO CONSTIPATION Last administered on 05:34; Admin Dose 20 GM; Start 10/23/16 at 10:30 Amylase/Lipase/ Protease (CREON (55r-[id number])) 3 cap Q6 NGT Last administered on 12/18/16 12:58; Admin Dose 1 CAP; Start 10/29/16 at 13:00 Latanoprost (Xalatan) 1 drop HS BOTH EYES Last administered on 12/17/16 21:03 ; Admin Dose 1 DROP; Start 10/31/16 at 21:00 Dorzolamide/ Timolol (Cosopt) 1 drop BID BOTH EYES Last administered on 09:43; Admin Dose 1 DROP; Start 10/31/16 at 21:00 Glucagon (Glucagen) 1 mg Q15M PRN IM DECREASED GLUCOSE Last administered on 12/13 06:04; Admin Dose 1 MG; Start 11/03/16 at 18:00 Ondansetron HCl (Zofran Inj) 4 mg Q4H PRN IV NAUSEA AND/OR VOMITING Last administered on 12/16/16 05:48; Admin Dose 4 MG; Start 11/04/16 at 23:00 Eye Lubricant (Artificial Tears Oph) 2 drop QID BOTH EYES Last administered on 12/18/16 12:58; Admin Dose 2 DROP; Start 11/07/16 at 09:00 Morphine Sulfate (morphine) 1 mg Q3H PRN IV pain Last administered on 12/10/16 08:16; Admin Dose 1 MG; Start 11/10/16 at 08:00 Miscellaneous Information 1 ea NOTE XX ; Start 11/14/16 at 10:00 Glucose (Glutose) 15 gm Q15M PRN PO DECREASED GLUCOSE; Start 11/14/16 at 10:00 Glucose (Glutose) 22.5 gm Q15M PRN PO DECREASED GLUCOSE; Start 11/14/16 at 10: 00 Dextrose (D50w Syringe) 25 ml Q15M PRN IV DECREASED GLUCOSE Last administered on 12/13/16 10:08; Admin Dose 25 ML; Start 11/14/16 at 10:00 Dextrose (D50w Syringe) 50 ml Q15M PRN IV DECREASED GLUCOSE Last administered on 12/07/16 05:29; Admin Dose 50 ML; Start 11/14/16 at 10:00 Glucose (Glutose) 15 gm Q15M PRN BUCCAL DECREASED GLUCOSE; Start 11/14/16 at 10 :00 Escitalopram Oxalate (Lexapro) 10 mg DAILY GTB Last administered on 12/18/16 09:40; Admin Dose 10 MG; Start 11/16/16 at 12:30 Lactobacillus Acidophilus (Florajen3 Capsule) 1 each TID PEG Last administered on 12/18/16 13:14; Admin Dose 1 EACH; Start 11/23/16 at 21:00 Calcium Carbonate (Tums) 500 mg TID PEG Last administered on 12/18/16 12:58; Admin Dose 500 MG; Start 11/23/16 at 21:00 Metoprolol Tartrate (Lopressor) 25 mg BID GTB Last administered on 12/18/16 09 :40; Admin Dose 25 MG; Start 11/23/16 at 21:00 Metoclopramide HCl (Reglan) 5 mg Q6 PEG Last administered on 12/18/16 12:58; Admin Dose 5 MG; Start 12/03/16 at 01:00 Aspirin (Aspirin) 81 mg MONWEDFRI GTB ; Start 12/09/16 at 09:00; Status Future Hold Clopidogrel Bisulfate (plaVIX) 75 mg MONWEDFRI GTB ; Start 12/09/16 at 09:00; Status Future Hold Lansoprazole (Prevacid) 30 mg DAILY@06 GTB Last administered on 12/18/16 05:11 ; Admin Dose 30 MG; Start 12/12/16 at 06:00 Fluconazole (Diflucan) 100 mg DAILY PO Last administered on 12/18/16 09:40; Admin Dose 100 MG; Start 12/13/16 at 12:00 Insulin Glargine (Lantus) 32 unit DAILY@08 SC ; Start 12/19/16 at 08:00 Insulin Aspart (Adult SC Insulin - Moder... Q6 SC ; Start 12/18/16 at 18:00 Ertapenem/Sodium Chloride (Invanz/NS) 100 ml @ 200 mls/hr Q24H IVPB ; Start at 16:00 SHAMA LOPEZ MD Dec 18, 2016 15:18
[2016-12-18] MEDS: ERTAPENEM SODIUM 0.5 GM in SOD CHLORIDE 0.9% 100 ML IVPB SCH (16:49)
[2016-12-18] MEDS ORDERED: INSULIN ASPART [NOVOLOG] 3 ML PEN SC SCH (17:55)
[2016-12-18] MEDS ORDERED: ACCU-CHEK XX SCH (18:00)
[2016-12-18] MEDS: Insulin NOVOLOG SS MODERATE Algorithm(NPO/TPN/ENTERAL FEEDS) SC SCH (18:13)
[2016-12-18 20:56] VITALS: BP 118/57; RESP 19
[2016-12-18] MEDS: LATANOPROST 0.005% 2.5 ML OPH BOTH EYES SCH (21:14)
--- NOTE | 2016-12-18 22:30 | PN ---
Date/Time of Note Date/Time of Note DATE: 12/18/16 TIME: 22:23 Assessment/Plan Lines/Catheters IV Catheter Type (from [facility]): PERMACATH Rivas in Place (from [facility]): No Assessment/Plan Assessment/Plan [facility] Progress Note Date of Service: 12/18/16 Today's Impression & Plan: Overall has remained stable with severe acute on chronic cholecystitis with possible localized perforation, s/p CT-guided percutaneous transhepatic cholecystostomy drain placement 12/16/16. No major change in guarded, but slowly improving status. GB drainage will likely take a number of weeks prior to adequate resolution of the inflammation prior to any decisions regarding surgical intervention vs. discontinuation of the drain. No indication for acute surgical intervention. ? ability to resume feeds and ? ability to swallow. D/w and updated patient's and patient herself and answered all questions. I got the sense that the patient's may believe that the patient will only go home after discharge from the hospital. I do not believe patient will be eligible to safely discharge home after being stable enough for discharge from acute care setting. With above assessment, I've recommended the following for today: 1. Cont. with current management 2. Check labs in am 3. PEG management per Dr. Helm, and will contribute through multidisciplinary approach 4. Increase nutrition with goal of albumin > 3.5 5. Increase activity 6. ? need for vascular evaluation of lower extremities for possible intervention (not sure if done in the past; if not, may benefit from this) 7. Revisit the issue of feeds and swallowing ability Thank you again for your great care of this very pleasant patient and wonderful family. If there are any questions, please feel free to call me at [phone]. TOTAL VISIT TIME: 20 minutes of which more than half was spent in [id number] discussion with the patient, possibly including family, as well as coordination of care between multiple physicians and providers. Disclaimer: Inadvertent spelling or grammatical errors are likely due to EHR/ dictation software use and do not reflect on the overall quality of patient care. Updated Clinical Summary: A very pleasant 71-year-old lady with multiple comorbid issues including BMI of 35.6 as well as what has been in the hospital since 09/2016 being found unresponsive and multiple issues including congestive heart failure, acute renal failure due to acute tubular necrosis requiring dialysis, urinary tract infection with bacteremia and multiple other issues, who was found to have possible signs of acute cholecystitis on recent imaging. COMORBIDITIES: 1. BMI of 35.6. 2. Acute renal failure (ATN), on maintenance hemodialysis (Friday, , Friday). 3. Congestive heart failure. 4. Anemia. 5. Hypocalcemia. 6. Hypoalbuminemia and malnutrition. 7. Peripheral vascular disease with gangrene of toes of both feet. 8. Recent history of respiratory failure. 9. History of dysphagia requiring PEG placement and feedings. 10. Diabetes mellitus. 11. Leukocytosis from various sources. 12. Funguria with Erica glabrata and Erica albicans of the urine. 13. Escherichia coli and Enterococcus urinary tract infection 10/29/2016. 14. Escherichia coli bacteremia 12/02/2016 (x2 cultures). 15. Repeat culture of the urine 12/02/2016 with E. coli, enterococcus species and Klebsiella pneumoniae, extended-spectrum beta-lactamase. 16. Repeat bacteremia 12/08/2016 with Escherichia coli. 17. Urine positive for Erica albicans 12/11/2016. 18. Clostridium difficile colitis negative on a few stool samples. 19. Bilateral pleural effusions. 20. 2 mm calcified granuloma in the right lower lobe. 21. CT scan of abdomen and pelvis 12/13/2016 showing large amount of pericholecystic fluid with distention of the gallbladder, which could be of acute cholecystitis. 22. Tumefaction sludge, poorly visualized gallstones or soft tissue masses are suspected within the lumen of the distended gallbladder. 23. Anasarca. 24. Status post splenectomy. 25. A 2.8 cm left parapelvic cyst and an adjacent 1.4 cm simple cyst lateral upper portion of the lower third left kidney noted. 26. Atherosclerotic vascular disease. 27. Osteoarthritis of the thoracic and lumbosacral spine. 28. History of acute ST elevation myocardial infarction, inferior wall, status post code STEMI with stent placement, as well as temporary pacer wire. 29. Hyperlipidemia. 30. Possible aspiration pneumonia. 31. S/p CT-guided percutaneous transhepatic cholecystostomy drain placement 06/22, [facility] Subjective: No major events or complaints; no major abd pain; no n/v/d; no sob or cp; + flatus; + BM; - activity; I visited her while she was being visited by her . Patient asked about ice chips again. Objective: Vitals: See below Exam: GENERAL: On exam, the patient was laying in bed and appeared to be comfortable and in no acute distress. ABDOMEN: Soft, nontender and nondistended. There are no peritoneal signs or guarding. Perc GB drain with thick bilious output. SKIN: Skin appears to be pink and feels warm to touch. NEUROLOGIC: Patient is awake, alert, and follows commands appropriately. Exam/Review of Systems Vital Signs Vitals Vital Signs Date Time Temp Pulse Resp B/P Pulse Ox O2 Delivery O2 Flow Rate FiO2 12/18/16 20:56 98.6 75 19 118/57 97 12/18/16 14:29 21 12/18/16 08:00 Nasal Cannula 12/17/16 08:00 2.0 Intake and Output 12/17/16 12/17/16 12/18/16 15:00 23:00 07:00 Intake Total 500 ml 59 ml 440 ml Output Total 3500 ml 10 ml 10 ml Balance -3000 ml 49 ml 430 ml Results Result Diagram: 12/18/16 0500 12/18/16 0500 SHANA ROSARIO M.D. Dec 18, 2016 22:29
[2016-12-19] VITALS (14 sets, daily range): BP systolic 83–154; BP diastolic 42–70; PULSE 75–82; RESP 18–20
[2016-12-19] MEDS: METOCLOPRAMIDE 10 MG TAB PEG SCH ×5 (00:36→23:38)
[2016-12-19] MEDS: IPRATROPIUM (NEB) 0.5 MG/2.5 ML AMP HHN SCH ×4 (01:57→21:05)
[2016-12-19] MEDS: LEVALBUTEROL (NEB) 1.25 MG/0.5 ML AMP HHN SCH ×4 (01:57→21:05)
[2016-12-19] MEDS: morphine 2 MG INJ IV PRN (04:19)
[2016-12-19] MEDS: LANSOPRAZOLE 30 MG CAP GTB SCH (05:28)
[2016-12-19] MEDS: CREON (12k-38k-60k) 1 CAP NGT SCH ×4 (05:28→23:38)
[2016-12-19] MEDS: Insulin NOVOLOG SS MODERATE Algorithm(NPO/TPN/ENTERAL FEEDS) SC SCH ×5 (06:00→23:37)
--- NOTE | 2016-12-19 06:53 | PN ---
DATE: 12/18/2016 SUBJECTIVE: The patient has no complaints. She is nonverbal. She is alert. OBJECTIVE: GENERAL: The patient is in bed, bedridden situation. VITAL SIGNS: She is afebrile, pulse is 90, blood pressure is 142/82. CARDIOVASCULAR: Normal heart sounds. RESPIRATORY: Normal breath sounds. ABDOMEN: Showed evidence of status post percutaneous cholecystostomy. The drainage is still showin g evidence of a dark greenish material. The culture was sent from the gallbladder liquid, and it gr ew gram-negative rods. Currently the plan is on antibiotics for cholecystitis. PLAN: Continue antibiotic therapy, and the drainage can be discontinued when the drainage completel y stops. Dictated By: CIELO COWAN/JERROD Conf#: [id number] DID#: [id number]
[2016-12-19] MEDS: ESCITALOPRAM 10 MG TAB GTB SCH (08:30)
[2016-12-19] MEDS: FLUCONAZOLE 100 MG TAB PO SCH (08:30)
[2016-12-19] MEDS: CALCIUM CARBONATE 500 MG CHEW TAB PEG SCH ×3 (08:30→20:36)
[2016-12-19] MEDS: L ACIDOPHIL/B LACTIS/B LONGUM CAPSULE PEG SCH ×3 (08:30→20:37)
[2016-12-19] MEDS: DORZOLAMIDE/TIMOLOL 10 ML OPH BOTH EYES SCH ×2 (08:31→20:37)
[2016-12-19] MEDS: ARTIFICIAL TEARS 15 ML OPH BOTH EYES SCH ×4 (08:31→20:37)
[2016-12-19] MEDS: INSULIN GLARGINE [LANtus] 3 ML PEN SC SCH (08:37)
[2016-12-19] MEDS: METOPROLOL 25 MG TAB GTB SCH ×2 (12:15→20:37)
--- NOTE | 2016-12-19 13:03 | CONS ---
Date/Time of Note Date/Time of Note DATE: 12/19/16 TIME: 13:02 Assessment/Plan Assessment/Plan Chief Complaint/Hosp Course SUBJECTIVE: No acute changes overnight. Awake, responsive, nad. No fevers MICROBIOLOGY: Fluid cultures growing E coli ANTIMICROBIALS: Invanz, Diflucan INDWELLINGS: RSC permacath, PEG, cholecystostomy drain PHYSICAL EXAMINATION: GENERAL: This is a chronically ill-appearing, elderly woman who is in no distress. HEENT: Head atraumatic, normocephalic. Sclerae anicteric. Buccal mucosa dry. NECK: Supple, trachea midline. CHEST: Rise symmetrical. Breath sounds diminished to bases. HEART: S1, S2. ABDOMEN: Soft, bowel sounds present. EXTREMITIES: Without cyanosis. ASSESSMENT: 1. Sepsis with E coli bacteremia, s/p PICC dc'd. 2. Polymicrobial urinary tract infection, repeat urine cx + C albicans. 3. End-stage renal disease, hemodialysis dependent. 4. 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 5. Dysphagia. 6. History of cardiopulmonary arrest. 7. Acute gangrenous cholecystitis, s/p IR drainage==> cx + E coli PLAN: Clinically stable, repeat bld cx 12/12 negative, continue abx. F/u surgical and GI rec-s [facility] staff Problems: Consultation Date/Type/Reason Admit Date/Time Sep 20, 2016 at 19:21 Initial Consult Date 09/23/16 Type of Consultation: ID Referring Provider: ZANDRA ROBISON MD, [facility] Exam/Review of Systems Vital Signs Vitals Vital Signs Date Time Temp Pulse Resp B/P Pulse Ox O2 Delivery O2 Flow Rate FiO2 12/19/16 10:25 Nasal Cannula 2.0 12/19/16 08:23 97.9 80 20 113/59 96 12/18/16 14:29 21 Intake and Output 12/18/16 12/18/16 12/19/16 15:00 23:00 07:00 Intake Total 600 ml Output Total 550 ml Balance 50 ml Results Result Diagram: 12/18/16 0500 12/18/16 0500 Results 24 hrs Laboratory Tests Test 12/18/16 18:10 12/19/16 00:35 12/19/16 05:38 12/19/16 08:34 Bedside Glucose 172 133 101 153 Test 12/19/16 12:02 Bedside Glucose 175 Medications Medications Current Medications Acetaminophen (Tylenol Liquid) 650 mg Q4H PRN NGT PAIN AND OR ELEVATED TEMP Last administered on 12/18/16 06:32; Admin Dose 650 MG; Start 09/21/16 at 02:00 IV Flush (NS 10 ml) 10 ml PRN PRN IV IV PROTOCOL Last administered on 12/12/16 21:49; Admin Dose 10 ML; Start 09/26/16 at 17:30 Lactulose (Enulose) 20 gm BID PRN PO CONSTIPATION Last administered on 05:34; Admin Dose 20 GM; Start 10/23/16 at 10:30 Amylase/Lipase/ Protease (CREON ([id number])) 3 cap Q6 NGT Last administered on 12/19/16 05:28; Admin Dose 3 CAP; Start 10/29/16 at 13:00 Latanoprost (Xalatan) 1 drop HS BOTH EYES Last administered on 12/18/16 21:14 ; Admin Dose 1 DROP; Start 10/31/16 at 21:00 Dorzolamide/ Timolol (Cosopt) 1 drop BID BOTH EYES Last administered on 08:31; Admin Dose 1 DROP; Start 10/31/16 at 21:00 Glucagon (Glucagen) 1 mg Q15M PRN IM DECREASED GLUCOSE Last administered on 12/13 06:04; Admin Dose 1 MG; Start 11/03/16 at 18:00 Ondansetron HCl (Zofran Inj) 4 mg Q4H PRN IV NAUSEA AND/OR VOMITING Last administered on 12/16/16 05:48; Admin Dose 4 MG; Start 11/04/16 at 23:00 Eye Lubricant (Artificial Tears Oph) 2 drop QID BOTH EYES Last administered on 12/19/16 08:31; Admin Dose 2 DROP; Start 11/07/16 at 09:00 Morphine Sulfate (morphine) 1 mg Q3H PRN IV pain Last administered on 04:19; Admin Dose 1 MG; Start 11/10/16 at 08:00 Miscellaneous Information 1 ea NOTE XX ; Start 11/14/16 at 10:00 Glucose (Glutose) 15 gm Q15M PRN PO DECREASED GLUCOSE; Start 11/14/16 at 10:00 Glucose (Glutose) 22.5 gm Q15M PRN PO DECREASED GLUCOSE; Start 11/14/16 at 10: 00 Dextrose (D50w Syringe) 25 ml Q15M PRN IV DECREASED GLUCOSE Last administered on 12/13/16 10:08; Admin Dose 25 ML; Start 11/14/16 at 10:00 Dextrose (D50w Syringe) 50 ml Q15M PRN IV DECREASED GLUCOSE Last administered on 12/07/16 05:29; Admin Dose 50 ML; Start 11/14/16 at 10:00 Glucose (Glutose) 15 gm Q15M PRN BUCCAL DECREASED GLUCOSE; Start 11/14/16 at 10 :00 Escitalopram Oxalate (Lexapro) 10 mg DAILY GTB Last administered on 12/19/16 08:30; Admin Dose 10 MG; Start 11/16/16 at 12:30 Lactobacillus Acidophilus (Florajen3 Capsule) 1 each TID PEG Last administered on 12/19/16 08:30; Admin Dose 1 EACH; Start 11/23/16 at 21:00 Calcium Carbonate (Tums) 500 mg TID PEG Last administered on 12/19/16 08:30; Admin Dose 500 MG; Start 11/23/16 at 21:00 Metoprolol Tartrate (Lopressor) 25 mg BID GTB Last administered on 12/18/16 21 :08; Admin Dose 25 MG; Start 11/23/16 at 21:00 Metoclopramide HCl (Reglan) 5 mg Q6 PEG Last administered on 12/19/16 05:28; Admin Dose 5 MG; Start 12/03/16 at 01:00 Aspirin (Aspirin) 81 mg MONWEDFRI GTB ; Start 12/09/16 at 09:00; Status Future Hold Clopidogrel Bisulfate (plaVIX) 75 mg MONWEDFRI GTB ; Start 12/09/16 at 09:00; Status Future Hold Lansoprazole (Prevacid) 30 mg DAILY@06 GTB Last administered on 12/19/16 05:28 ; Admin Dose 30 MG; Start 12/12/16 at 06:00 Fluconazole (Diflucan) 100 mg DAILY PO Last administered on 12/19/16 08:30; Admin Dose 100 MG; Start 12/13/16 at 12:00 Insulin Glargine (Lantus) 32 unit DAILY@08 SC Last administered on 12/19/16 08 :37; Admin Dose 32 UNIT; Start 12/19/16 at 08:00 Insulin Aspart (Adult SC Insulin - Moder... Q6 SC Last administered on 18:13; Admin Dose 2 UNIT; Start 12/18/16 at 18:00 Ertapenem/Sodium Chloride (Invanz/NS) 100 ml @ 200 mls/hr Q24H IVPB Last administered on 12/18/16 16:49; Admin Dose 200 MLS/HR; Start 12/18/16 at 16:00 ROSALINA SIMS NP Dec 19, 2016 13:03
--- NOTE | 2016-12-19 13:34 | CONS ---
Date/Time of Note Date/Time of Note DATE: 12/19/16 TIME: 13:30 Assessment/Plan Assessment/Plan Chief Complaint/Hosp Course 1. Acute Renal Failure due to ATN . She is now on maintenance hemodialysis T T S . She is having her hemodialysis treatment now. 2. ALOC , she continues to be very weak and lethargic . Her mental status is about the same. 3. She had a cholecystostomy yesterday and is draining dark fluid. 4. CHF , her chest x-ray shows some clearing, she is having fluid removed with dialysis and is overall better with fluid balance. 5. hypocalcemia/hypoalbuminemia , calcium is higher 6. anemia , She has no active GI bleeding now. 7. peripheral vascular disease .gangrene of toes of both feet . 8. respiratory failure , pulmonary function has improved . 9 dysphagia , she has a PEG . 10. discharge planning . She can be discharged to home or SNF , with outpatient dialysis . 11. DM , tube feeding is being restarted and her blood sugar is high. I will increase her dose of Lantus insulin 32 units daily starting tomorrow morning. I will also change her to a moderate NovoLog insulin sliding scale. Her blood sugars today have been less than 200. I told the nurse to increase her tube feeding to 40 cc an hour. . Problems: Consultation Date/Type/Reason Admit Date/Time Sep 20, 2016 at 19:21 Initial Consult Date 09/23/16 Type of Consultation: ID Referring Provider: ZANDRA ROBISON MD, [facility] 24 HR Interval Summary Free Text/Dictation She is now having her hemodialysis treatment. She is awake and alert and responsive. Exam/Review of Systems Vital Signs Vitals Vital Signs Date Time Temp Pulse Resp B/P Pulse Ox O2 Delivery O2 Flow Rate FiO2 12/19/16 10:25 Nasal Cannula 2.0 12/19/16 08:23 97.9 80 20 113/59 96 12/18/16 14:29 21 Intake and Output 12/18/16 12/18/16 12/19/16 15:00 23:00 07:00 Intake Total 600 ml Output Total 550 ml Balance 50 ml Exam Constitutional: alert, frail, obese, oriented Respiratory: clear to auscultation, normal air movement Cardiovascular: regular rate and rhythm Gastrointestinal: non-tender, soft Musculoskeletal: nl extremities to inspection Results Result Diagram: 12/18/16 0500 12/18/16 0500 Results 24 hrs Laboratory Tests Test 12/18/16 18:10 12/19/16 00:35 12/19/16 05:38 12/19/16 08:34 Bedside Glucose 172 133 101 153 Test 12/19/16 12:02 12/19/16 13:04 Bedside Glucose 175 167 Medications Medications Current Medications Acetaminophen (Tylenol Liquid) 650 mg Q4H PRN NGT PAIN AND OR ELEVATED TEMP Last administered on 12/18/16 06:32; Admin Dose 650 MG; Start 09/21/16 at 02:00 IV Flush (NS 10 ml) 10 ml PRN PRN IV IV PROTOCOL Last administered on 12/12/16 21:49; Admin Dose 10 ML; Start 09/26/16 at 17:30 Lactulose (Enulose) 20 gm BID PRN PO CONSTIPATION Last administered on 05:34; Admin Dose 20 GM; Start 10/23/16 at 10:30 Amylase/Lipase/ Protease (CREON (12e-38k-60k)) 3 cap Q6 NGT Last administered on 12/19/16 05:28; Admin Dose 3 CAP; Start 10/29/16 at 13:00 Latanoprost (Xalatan) 1 drop HS BOTH EYES Last administered on 12/18/16 21:14 ; Admin Dose 1 DROP; Start 10/31/16 at 21:00 Dorzolamide/ Timolol (Cosopt) 1 drop BID BOTH EYES Last administered on 08:31; Admin Dose 1 DROP; Start 10/31/16 at 21:00 Glucagon (Glucagen) 1 mg Q15M PRN IM DECREASED GLUCOSE Last administered on 12/13 06:04; Admin Dose 1 MG; Start 11/03/16 at 18:00 Ondansetron HCl (Zofran Inj) 4 mg Q4H PRN IV NAUSEA AND/OR VOMITING Last administered on 12/16/16 05:48; Admin Dose 4 MG; Start 11/04/16 at 23:00 Eye Lubricant (Artificial Tears Oph) 2 drop QID BOTH EYES Last administered on 12/19/16 08:31; Admin Dose 2 DROP; Start 11/07/16 at 09:00 Morphine Sulfate (morphine) 1 mg Q3H PRN IV pain Last administered on 04:19; Admin Dose 1 MG; Start 11/10/16 at 08:00 Miscellaneous Information 1 ea NOTE XX ; Start 11/14/16 at 10:00 Glucose (Glutose) 15 gm Q15M PRN PO DECREASED GLUCOSE; Start 11/14/16 at 10:00 Glucose (Glutose) 22.5 gm Q15M PRN PO DECREASED GLUCOSE; Start 11/14/16 at 10: 00 Dextrose (D50w Syringe) 25 ml Q15M PRN IV DECREASED GLUCOSE Last administered on 12/13/16 10:08; Admin Dose 25 ML; Start 11/14/16 at 10:00 Dextrose (D50w Syringe) 50 ml Q15M PRN IV DECREASED GLUCOSE Last administered on 12/07/16 05:29; Admin Dose 50 ML; Start 11/14/16 at 10:00 Glucose (Glutose) 15 gm Q15M PRN BUCCAL DECREASED GLUCOSE; Start 11/14/16 at 10 :00 Escitalopram Oxalate (Lexapro) 10 mg DAILY GTB Last administered on 12/19/16 08:30; Admin Dose 10 MG; Start 11/16/16 at 12:30 Lactobacillus Acidophilus (Florajen3 Capsule) 1 each TID PEG Last administered on 12/19/16 08:30; Admin Dose 1 EACH; Start 11/23/16 at 21:00 Calcium Carbonate (Tums) 500 mg TID PEG Last administered on 12/19/16 08:30; Admin Dose 500 MG; Start 11/23/16 at 21:00 Metoprolol Tartrate (Lopressor) 25 mg BID GTB Last administered on 12/18/16 21 :08; Admin Dose 25 MG; Start 11/23/16 at 21:00 Metoclopramide HCl (Reglan) 5 mg Q6 PEG Last administered on 12/19/16 05:28; Admin Dose 5 MG; Start 12/03/16 at 01:00 Aspirin (Aspirin) 81 mg MONWEDFRI GTB ; Start 12/09/16 at 09:00; Status Future Hold Clopidogrel Bisulfate (plaVIX) 75 mg MONWEDFRI GTB ; Start 12/09/16 at 09:00; Status Future Hold Lansoprazole (Prevacid) 30 mg DAILY@06 GTB Last administered on 12/19/16 05:28 ; Admin Dose 30 MG; Start 12/12/16 at 06:00 Fluconazole (Diflucan) 100 mg DAILY PO Last administered on 12/19/16 08:30; Admin Dose 100 MG; Start 12/13/16 at 12:00 Insulin Glargine (Lantus) 32 unit DAILY@08 SC Last administered on 12/19/16 08 :37; Admin Dose 32 UNIT; Start 12/19/16 at 08:00 Insulin Aspart (Adult SC Insulin - Moder... Q6 SC Last administered on 18:13; Admin Dose 2 UNIT; Start 12/18/16 at 18:00 Ertapenem/Sodium Chloride (Invanz/NS) 100 ml @ 200 mls/hr Q24H IVPB Last administered on 12/18/16 16:49; Admin Dose 200 MLS/HR; Start 12/18/16 at 16:00 DAMIR MARTINEZ MD Dec 19, 2016 13:34
[2016-12-19] MEDS: ALBUMIN HUMAN 25% 100 ML IV PRN (14:45)
--- NOTE | 2016-12-19 14:59 | PN ---
Date/Time of Note Date/Time of Note DATE: 12/19/16 TIME: 14:44 Assessment/Plan VTE Prophylaxis VTE Prophylaxis Intervention: other (heparin w/ dialysis) Lines/Catheters IV Catheter Type (from Nrsg): PERMACATH Central line still needed: No Urinary Cath still in place: No Assessment/Plan Assessment/Plan 1. e. coli bacteremia/ cholangitis/ s/p choley--wbc better but still draining 2. arf/ anemia--dialysis 3. dm--fluctuating gluc 4. depression/ obesity/ musc weak--peg tube feed 5. pulm effusion 6. recent cad/ pad--needing anticoag 7. skin stasis ulcers ---per ID, cont atbxs ---per GI & surg, all post procedure cares ---per renal ---skin care nurse to follow, freq position changes ---cont all supportive cares inc tube feed ---soc serv to talk about chemical code only w/ pt & her daughter ---still adjusting feed amnt w/ insulin dose ---cannot be transferred to SNF this week Subjective 24 Hr Interval Summary Free Text/Dictation quiet, no complaints, much less activity Exam/Review of Systems Vital Signs Vitals Vital Signs Date Time Temp Pulse Resp B/P Pulse Ox O2 Delivery O2 Flow Rate FiO2 12/19/16 14:15 79 12/19/16 12:15 18 12/19/16 10:25 Nasal Cannula 2.0 12/19/16 08:23 97.9 113/59 96 12/18/16 14:29 21 Intake and Output 12/18/16 12/18/16 12/19/16 15:00 23:00 07:00 Intake Total 600 ml Output Total 550 ml Balance 50 ml Exam obese, in bed, toes blue black dry peeling ft skin, buttock skin thin/ peeling/ grade 1 ulcer? dec bs rr just least motivated Results Result Diagram: 12/18/16 0500 12/18/16 0500 Results 24 hrs Laboratory Tests Test 12/18/16 18:10 12/19/16 00:35 12/19/16 05:38 12/19/16 08:34 Bedside Glucose 172 133 101 153 Test 12/19/16 12:02 12/19/16 13:04 Bedside Glucose 175 167 Medications Medications Current Medications Acetaminophen (Tylenol Liquid) 650 mg Q4H PRN NGT PAIN AND OR ELEVATED TEMP Last administered on 12/18/16 06:32; Admin Dose 650 MG; Start 09/21/16 at 02:00 IV Flush (NS 10 ml) 10 ml PRN PRN IV IV PROTOCOL Last administered on 12/12/16 21:49; Admin Dose 10 ML; Start 09/26/16 at 17:30 Lactulose (Enulose) 20 gm BID PRN PO CONSTIPATION Last administered on 05:34; Admin Dose 20 GM; Start 10/23/16 at 10:30 Amylase/Lipase/ Protease (CREON (37e-11z-40a)) 3 cap Q6 NGT Last administered on 12/19/16 05:28; Admin Dose 3 CAP; Start 10/29/16 at 13:00 Latanoprost (Xalatan) 1 drop HS BOTH EYES Last administered on 12/18/16 21:14 ; Admin Dose 1 DROP; Start 10/31/16 at 21:00 Dorzolamide/ Timolol (Cosopt) 1 drop BID BOTH EYES Last administered on 08:31; Admin Dose 1 DROP; Start 10/31/16 at 21:00 Glucagon (Glucagen) 1 mg Q15M PRN IM DECREASED GLUCOSE Last administered on 12/13 06:04; Admin Dose 1 MG; Start 11/03/16 at 18:00 Ondansetron HCl (Zofran Inj) 4 mg Q4H PRN IV NAUSEA AND/OR VOMITING Last administered on 12/16/16 05:48; Admin Dose 4 MG; Start 11/04/16 at 23:00 Eye Lubricant (Artificial Tears Oph) 2 drop QID BOTH EYES Last administered on 12/19/16 08:31; Admin Dose 2 DROP; Start 11/07/16 at 09:00 Morphine Sulfate (morphine) 1 mg Q3H PRN IV pain Last administered on 04:19; Admin Dose 1 MG; Start 11/10/16 at 08:00 Miscellaneous Information 1 ea NOTE XX ; Start 11/14/16 at 10:00 Glucose (Glutose) 15 gm Q15M PRN PO DECREASED GLUCOSE; Start 11/14/16 at 10:00 Glucose (Glutose) 22.5 gm Q15M PRN PO DECREASED GLUCOSE; Start 11/14/16 at 10: 00 Dextrose (D50w Syringe) 25 ml Q15M PRN IV DECREASED GLUCOSE Last administered on 12/13/16 10:08; Admin Dose 25 ML; Start 11/14/16 at 10:00 Dextrose (D50w Syringe) 50 ml Q15M PRN IV DECREASED GLUCOSE Last administered on 12/07/16 05:29; Admin Dose 50 ML; Start 11/14/16 at 10:00 Glucose (Glutose) 15 gm Q15M PRN BUCCAL DECREASED GLUCOSE; Start 11/14/16 at 10 :00 Escitalopram Oxalate (Lexapro) 10 mg DAILY GTB Last administered on 12/19/16 08:30; Admin Dose 10 MG; Start 11/16/16 at 12:30 Lactobacillus Acidophilus (Florajen3 Capsule) 1 each TID PEG Last administered on 12/19/16 08:30; Admin Dose 1 EACH; Start 11/23/16 at 21:00 Calcium Carbonate (Tums) 500 mg TID PEG Last administered on 12/19/16 08:30; Admin Dose 500 MG; Start 11/23/16 at 21:00 Metoprolol Tartrate (Lopressor) 25 mg BID GTB Last administered on 12/18/16 21 :08; Admin Dose 25 MG; Start 11/23/16 at 21:00 Metoclopramide HCl (Reglan) 5 mg Q6 PEG Last administered on 12/19/16 05:28; Admin Dose 5 MG; Start 12/03/16 at 01:00 Aspirin (Aspirin) 81 mg MONWEDFRI GTB ; Start 12/09/16 at 09:00; Status Future Hold Clopidogrel Bisulfate (plaVIX) 75 mg MONWEDFRI GTB ; Start 12/09/16 at 09:00; Status Future Hold Lansoprazole (Prevacid) 30 mg DAILY@06 GTB Last administered on 12/19/16 05:28 ; Admin Dose 30 MG; Start 12/12/16 at 06:00 Fluconazole (Diflucan) 100 mg DAILY PO Last administered on 12/19/16 08:30; Admin Dose 100 MG; Start 12/13/16 at 12:00 Insulin Glargine (Lantus) 32 unit DAILY@08 SC Last administered on 12/19/16 08 :37; Admin Dose 32 UNIT; Start 12/19/16 at 08:00 Insulin Aspart (Adult SC Insulin - Moder... Q6 SC Last administered on 18:13; Admin Dose 2 UNIT; Start 12/18/16 at 18:00 Ertapenem/Sodium Chloride (Invanz/NS) 100 ml @ 200 mls/hr Q24H IVPB Last administered on 12/18/16 16:49; Admin Dose 200 MLS/HR; Start 12/18/16 at 16:00 SHAMA LOPEZ MD Dec 19, 2016 14:59
[2016-12-19 15:20] LABS: ADD SCAN DIFF NO
[2016-12-19 15:22] LABS: BASOPHILS % 0.3 % (0.0-2.0); EOSINOPHILS # 0.1 10^3/ul (0.0-0.5); EOSINOPHILS % 0.4 % (0.0-7.0); HEMATOCRIT 33.8 % (37.0-47.0); HEMOGLOBIN 10.9 g/dl (12.0-16.0); LYMPHOCYTES # 1.1 10^3/ul (0.8-2.9); LYMPHOCYTES % 7.1 % (15.0-51.0); MEAN CORPUSCULAR HEMOGLOBIN 28.4 pg (29.0-33.0); MEAN CORPUSCULAR HGB CONC 32.2 g/dl (32.0-37.0); MEAN PLATELET VOLUME 8.6 fl (7.4-10.4); MONOCYTE # 1.1 10^3/ul (0.3-0.9); MONOCYTES % 6.8 % (0.0-11.0); NEUTROPHIL # 13.2 10^3/ul (1.6-7.5); NEUTROPHILS % 84.1 % (39.0-77.0); NUCLEATED RED BLOOD CELLS% 0.1 /100WBC (0.0-0.0); PLATELET COUNT 139 10^3/UL (140-415); RED BLOOD COUNT 3.84 10^6/ul (4.20-5.40); WHITE BLOOD COUNT 15.7 10^3/ul (4.8-10.8)
[2016-12-19 15:42] LABS: CALCIUM 9.3 mg/dl (8.4-10.2); CREATININE 1.27 mg/dl (0.44-1.00); MAGNESIUM 2.1 mg/dl (1.7-2.5); POTASSIUM 3.2 mmol/L (3.5-5.1)
--- NOTE | 2016-12-19 16:19 | PN ---
Date/Time of Note Date/Time of Note DATE: 12/19/16 TIME: 16:18 Assessment/Plan Lines/Catheters IV Catheter Type (from Nrs): PERMACATH Rivas in Place (from Nrs): No Assessment/Plan Assessment/Plan [facility] Progress Note Date of Service: 12/19/16 Today's Impression & Plan: Overall has remained stable with severe acute on chronic cholecystitis with possible localized perforation, s/p CT-guided percutaneous transhepatic cholecystostomy drain placement 12/16/16. No major change in guarded, but slowly improving status. GB drainage will likely take a number of weeks prior to adequate resolution of the inflammation prior to any decisions regarding surgical intervention vs. discontinuation of the drain. No indication for acute surgical intervention. ? ability to resume feeds and ? ability to swallow. D/w and updated patient's and patient herself and answered all questions. With above assessment, I've recommended the following for today: 1. Cont. with current management 2. Check labs in am 3. PEG management per Dr. Helm, and will contribute through multidisciplinary approach 4. Increase nutrition with goal of albumin > 3.5 5. Increase activity 6. ? need for vascular evaluation of lower extremities for possible intervention (not sure if done in the past; if not, may benefit from this) 7. Revisit the issue of feeds and swallowing ability 8. Ok from my standpoint to transfer out of acute care setting to SNF with outpatient follow up with me in 3-4 weeks when OK by other MD's and providers Thank you again for your great care of this very pleasant patient and wonderful family. If there are any questions, please feel free to call me at [phone]. TOTAL VISIT TIME: 20 minutes of which more than half was spent in [id number] discussion with the patient, possibly including family, as well as coordination of care between multiple physicians and providers. Disclaimer: Inadvertent spelling or grammatical errors are likely due to EHR/ dictation software use and do not reflect on the overall quality of patient care. Updated Clinical Summary: A very pleasant 71-year-old lady with multiple comorbid issues including BMI of 35.6 as well as what has been in the hospital since 09/2016 being found unresponsive and multiple issues including congestive heart failure, acute renal failure due to acute tubular necrosis requiring dialysis, urinary tract infection with bacteremia and multiple other issues, who was found to have possible signs of acute cholecystitis on recent imaging. COMORBIDITIES: 1. BMI of 35.6. 2. Acute renal failure (ATN), on maintenance hemodialysis (Friday, , Friday). 3. Congestive heart failure. 4. Anemia. 5. Hypocalcemia. 6. Hypoalbuminemia and malnutrition. 7. Peripheral vascular disease with gangrene of toes of both feet. 8. Recent history of respiratory failure. 9. History of dysphagia requiring PEG placement and feedings. 10. Diabetes mellitus. 11. Leukocytosis from various sources. 12. Funguria with Erica glabrata and Erica albicans of the urine. 13. Escherichia coli and Enterococcus urinary tract infection 10/29/2016. 14. Escherichia coli bacteremia 12/02/2016 (x2 cultures). 15. Repeat culture of the urine 12/02/2016 with E. coli, enterococcus species and Klebsiella pneumoniae, extended-spectrum beta-lactamase. 16. Repeat bacteremia 12/08/2016 with Escherichia coli. 17. Urine positive for Erica albicans 12/11/2016. 18. Clostridium difficile colitis negative on a few stool samples. 19. Bilateral pleural effusions. 20. 2 mm calcified granuloma in the right lower lobe. 21. CT scan of abdomen and pelvis 12/13/2016 showing large amount of pericholecystic fluid with distention of the gallbladder, which could be of acute cholecystitis. 22. Tumefaction sludge, poorly visualized gallstones or soft tissue masses are suspected within the lumen of the distended gallbladder. 23. Anasarca. 24. Status post splenectomy. 25. A 2.8 cm left parapelvic cyst and an adjacent 1.4 cm simple cyst lateral upper portion of the lower third left kidney noted. 26. Atherosclerotic vascular disease. 27. Osteoarthritis of the thoracic and lumbosacral spine. 28. History of acute ST elevation myocardial infarction, inferior wall, status post code STEMI with stent placement, as well as temporary pacer wire. 29. Hyperlipidemia. 30. Possible aspiration pneumonia. 31. S/p CT-guided percutaneous transhepatic cholecystostomy drain placement 06/22, [facility] Subjective: No major events or complaints; no major abd pain; no n/v/d; no sob or cp; + flatus; + BM; minimal activity; I visited her while she was being visited by her . No new issues. Objective: Vitals: See below Exam: GENERAL: On exam, the patient was laying in bed and appeared to be comfortable and in no acute distress. ABDOMEN: Soft, nontender and nondistended. There are no peritoneal signs or guarding. Perc GB drain with thick bilious output. SKIN: Skin appears to be pink and feels warm to touch. NEUROLOGIC: Patient is awake, alert, and follows commands appropriately. Exam/Review of Systems Vital Signs Vitals Vital Signs Date Time Temp Pulse Resp B/P Pulse Ox O2 Delivery O2 Flow Rate FiO2 12/19/16 15:15 77 18 12/19/16 14:00 130/60 98 Nasal Cannula 12/19/16 12:50 98.6 12/19/16 10:25 2.0 12/18/16 14:29 21 Intake and Output 12/18/16 12/18/16 12/19/16 15:00 23:00 07:00 Intake Total 600 ml Output Total 550 ml Balance 50 ml Results Result Diagram: 12/19/16 1516 12/19/16 1516 SHANA ROSARIO M.D. Dec 19, 2016 16:19
[2016-12-19] MEDS: ERTAPENEM SODIUM 0.5 GM in SOD CHLORIDE 0.9% 100 ML IVPB SCH (16:41)
[2016-12-19] MEDS: LATANOPROST 0.005% 2.5 ML OPH BOTH EYES SCH (21:17)
[2016-12-19] MEDS: ZOLPIDEM 5 MG TAB PO PRN (21:30)
[2016-12-19] MEDS ORDERED: POTASSIUM CHLORIDE 20 MEQ POWDER FOR ORAL SOLN GTB ONE (23:30)
[2016-12-20] MEDS: IPRATROPIUM (NEB) 0.5 MG/2.5 ML AMP HHN SCH ×4 (02:00→20:00)
[2016-12-20] MEDS: LEVALBUTEROL (NEB) 1.25 MG/0.5 ML AMP HHN SCH ×4 (02:00→20:00)
[2016-12-20 05:13] LABS: ADD SCAN DIFF NO
[2016-12-20 05:29] LABS: BASOPHILS % 0.3 % (0.0-2.0); EOSINOPHILS # 0.1 10^3/ul (0.0-0.5); EOSINOPHILS % 0.7 % (0.0-7.0); HEMATOCRIT 33.8 % (37.0-47.0); HEMOGLOBIN 10.4 g/dl (12.0-16.0); LYMPHOCYTES # 1.4 10^3/ul (0.8-2.9); LYMPHOCYTES % 9.9 % (15.0-51.0); MEAN CORPUSCULAR HEMOGLOBIN 27.8 pg (29.0-33.0); MEAN CORPUSCULAR HGB CONC 30.8 g/dl (32.0-37.0); MEAN CORPUSCULAR VOLUME 90.4 fl (82.0-101.0); MONOCYTE # 1.1 10^3/ul (0.3-0.9); MONOCYTES % 7.8 % (0.0-11.0); NEUTROPHIL # 11.3 10^3/ul (1.6-7.5); NEUTROPHILS % 79.7 % (39.0-77.0); NUCLEATED RED BLOOD CELLS% 0.3 /100WBC (0.0-0.0); PLATELET COUNT 155 10^3/UL (140-415); RED BLOOD COUNT 3.74 10^6/ul (4.20-5.40); RED CELL DISTRIBUTION WIDTH 17.2 % (11.5-14.5); WHITE BLOOD COUNT 14.2 10^3/ul (4.8-10.8)
[2016-12-20] MEDS: LANSOPRAZOLE 30 MG CAP GTB SCH (05:31)
[2016-12-20] MEDS: METOCLOPRAMIDE 10 MG TAB PEG SCH ×3 (05:31→17:27)
[2016-12-20] MEDS: CREON (12k-38k-60k) 1 CAP NGT SCH ×3 (05:31→17:27)
[2016-12-20] MEDS: Insulin NOVOLOG SS MODERATE Algorithm(NPO/TPN/ENTERAL FEEDS) SC SCH (05:33)
[2016-12-20 05:46] LABS: CALCIUM 9.4 mg/dl (8.4-10.2); CREATININE 1.83 mg/dl (0.44-1.00)
[2016-12-20 07:00] VITALS: BP 105/53; RESP 18
[2016-12-20] MEDS: CALCIUM CARBONATE 500 MG CHEW TAB PEG SCH ×3 (08:15→18:25)
[2016-12-20] MEDS: DORZOLAMIDE/TIMOLOL 10 ML OPH BOTH EYES SCH ×2 (08:15→20:41)
[2016-12-20] MEDS: ARTIFICIAL TEARS 15 ML OPH BOTH EYES SCH ×4 (08:15→20:41)
[2016-12-20] MEDS: FLUCONAZOLE 100 MG TAB PO SCH (08:15)
[2016-12-20] MEDS: ESCITALOPRAM 10 MG TAB GTB SCH (08:15)
[2016-12-20] MEDS: METOPROLOL 25 MG TAB GTB SCH ×2 (08:16→20:42)
[2016-12-20] MEDS: L ACIDOPHIL/B LACTIS/B LONGUM CAPSULE PEG SCH ×3 (08:20→20:41)
[2016-12-20] MEDS: INSULIN GLARGINE [LANtus] 3 ML PEN SC SCH (08:38)
[2016-12-20] MEDS: INSULIN ASPART [NOVOLOG] 3 ML PEN SC SCH ×4 (08:39→20:42)
--- NOTE | 2016-12-20 08:59 | CONS ---
Date/Time of Note Date/Time of Note DATE: 12/20/16 TIME: 08:54 Assessment/Plan Assessment/Plan Chief Complaint/Hosp Course 1. Acute Renal Failure due to ATN . She is now on maintenance hemodialysis T . I will order hemodialysis for tomorrow. 2. ALOC , she continues to be very weak and lethargic . Her mental status is about the same. 3. She has a cholecystostomy in the gallbladder draining dark fluid. 4. CHF , she is having a chest x-ray done this morning. 5. hypocalcemia/hypoalbuminemia , calcium is higher 6. anemia , She has no active GI bleeding now. 7. peripheral vascular disease .gangrene of toes of both feet . 8. respiratory failure , pulmonary function has improved . 9 dysphagia , she has a PEG . 10. discharge planning . She can be discharged to home or SNF , with outpatient dialysis . 11. DM , tube feeding is being restarted and her blood sugar is high. I will increase her dose of Lantus insulin 36 units daily starting tomorrow today. I will also change her to a moderate NovoLog insulin sliding scale. Her blood sugars today have been less than 200. I told the nurse to increase her tube feeding to 50 cc an hour. . Problems: Consultation Date/Type/Reason Admit Date/Time Sep 20, 2016 at 19:21 Initial Consult Date 09/23/16 Type of Consultation: renal Referring Provider: Z[facility]DRA ROBISON [facility], [facility] Interval Summary Free Text/Dictation She is awake and responsive today. She has some slight pain in the right upper quadrant of the abdomen where she has a cystostomy draining the gallbladder. Constitutional: improved, no complaints Exam/Review of Systems Vital Signs Vitals Vital Signs Date Time Temp Pulse Resp B/P Pulse Ox O2 Delivery O2 Flow Rate FiO2 12/20/16 08:26 84 16 96 21 12/20/16 07:00 98.1 105/53 12/19/16 14:00 Nasal Cannula 12/19/16 10:25 2.0 Intake and Output 12/19/16 12/19/16 12/20/16 14:59 22:59 06:59 Intake Total 940 ml 580 ml Output Total 3 ml 2535 ml 20 ml Balance -3 ml -1595 ml 560 ml Exam Constitutional: alert, frail, obese, oriented Respiratory: clear to auscultation, normal air movement Cardiovascular: regular rate and rhythm Gastrointestinal: soft, tender Musculoskeletal: nl extremities to inspection Results Result Diagram: 12/20/16 0418 12/20/16 0418 Results 24 hrs Laboratory Tests Test 12/19/16 12:02 12/19/16 13:04 12/19/16 15:16 12/19/16 17:38 Bedside Glucose 175 167 175 White Blood Count 15.7 #H Red Blood Count 3.84 L Hemoglobin 10.9 L Hematocrit 33.8 L Mean Corpuscular Volume 88.0 Mean Corpuscular Hemoglobin 28.4 L Mean Corpuscular Hemoglobin Concent 32.2 Red Cell Distribution Width 17.0 H Platelet Count 139 #L Mean Platelet Volume 8.6 Neutrophils % 84.1 H Lymphocytes % 7.1 L Monocytes % 6.8 Eosinophils % 0.4 Basophils % 0.3 Nucleated Red Blood Cells % 0.1 H Neutrophils # 13.2 H Lymphocytes # 1.1 Monocytes # 1.1 H Eosinophils # 0.1 Basophils # 0.0 Nucleated Red Blood Cells # 0.0 Sodium Level 138 Potassium Level 3.2 L Chloride Level 99 Carbon Dioxide Level 31 Anion Gap 11 Blood Urea Nitrogen 18 # Creatinine 1.27 H Glucose Level 192 Calcium Level 9.3 Magnesium Level 2.1 Test 12/19/16 23:36 12/20/16 04:18 12/20/16 05:29 12/20/16 08:23 Bedside Glucose 93 166 185 White Blood Count 14.2 H Red Blood Count 3.74 L Hemoglobin 10.4 L Hematocrit 33.8 L Mean Corpuscular Volume 90.4 Mean Corpuscular Hemoglobin 27.8 L Mean Corpuscular Hemoglobin Concent 30.8 L Red Cell Distribution Width 17.2 H Platelet Count 155 Mean Platelet Volume 10.0 Neutrophils % 79.7 H Lymphocytes % 9.9 L Monocytes % 7.8 Eosinophils % 0.7 Basophils % 0.3 Nucleated Red Blood Cells % 0.3 H Neutrophils # 11.3 H Lymphocytes # 1.4 Monocytes # 1.1 H Eosinophils # 0.1 Basophils # 0.0 Nucleated Red Blood Cells # 0.0 Sodium Level 140 Potassium Level 4.0 Chloride Level 102 Carbon Dioxide Level 29 Anion Gap 13 Blood Urea Nitrogen 28 H Creatinine 1.83 H Glucose Level 126 # Calcium Level 9.4 Medications Medications Current Medications Acetaminophen (Tylenol Liquid) 650 mg Q4H PRN NGT PAIN AND OR ELEVATED TEMP Last administered on 12/18/16 06:32; Admin Dose 650 MG; Start 09/21/16 at 02:00 IV Flush (NS 10 ml) 10 ml PRN PRN IV IV PROTOCOL Last administered on 12/12/16 21:49; Admin Dose 10 ML; Start 09/26/16 at 17:30 Lactulose (Enulose) 20 gm BID PRN PO CONSTIPATION Last administered on 05:34; Admin Dose 20 GM; Start 10/23/16 at 10:30 Amylase/Lipase/ Protease (CREON ([id number])) 3 cap Q6 NGT Last administered on 12/20/16 05:31; Admin Dose 3 CAP; Start 10/29/16 at 13:00 Latanoprost (Xalatan) 1 drop HS BOTH EYES Last administered on 12/19/16 21:17 ; Admin Dose 1 DROP; Start 10/31/16 at 21:00 Dorzolamide/ Timolol (Cosopt) 1 drop BID BOTH EYES Last administered on 08:15; Admin Dose 1 DROP; Start 10/31/16 at 21:00 Glucagon (Glucagen) 1 mg Q15M PRN IM DECREASED GLUCOSE Last administered on 12/13 06:04; Admin Dose 1 MG; Start 11/03/16 at 18:00 Ondansetron HCl (Zofran Inj) 4 mg Q4H PRN IV NAUSEA AND/OR VOMITING Last administered on 12/16/16 05:48; Admin Dose 4 MG; Start 11/04/16 at 23:00 Eye Lubricant (Artificial Tears Oph) 2 drop QID BOTH EYES Last administered on 12/20/16 08:15; Admin Dose 2 DROP; Start 11/07/16 at 09:00 Morphine Sulfate (morphine) 1 mg Q3H PRN IV pain Last administered on 04:19; Admin Dose 1 MG; Start 11/10/16 at 08:00 Miscellaneous Information 1 ea NOTE XX ; Start 11/14/16 at 10:00 Glucose (Glutose) 15 gm Q15M PRN PO DECREASED GLUCOSE; Start 11/14/16 at 10:00 Glucose (Glutose) 22.5 gm Q15M PRN PO DECREASED GLUCOSE; Start 11/14/16 at 10: 00 Dextrose (D50w Syringe) 25 ml Q15M PRN IV DECREASED GLUCOSE Last administered on 12/13/16 10:08; Admin Dose 25 ML; Start 11/14/16 at 10:00 Dextrose (D50w Syringe) 50 ml Q15M PRN IV DECREASED GLUCOSE Last administered on 12/07/16 05:29; Admin Dose 50 ML; Start 11/14/16 at 10:00 Glucose (Glutose) 15 gm Q15M PRN BUCCAL DECREASED GLUCOSE; Start 11/14/16 at 10 :00 Escitalopram Oxalate (Lexapro) 10 mg DAILY GTB Last administered on 12/20/16 08:15; Admin Dose 10 MG; Start 11/16/16 at 12:30 Lactobacillus Acidophilus (Florajen3 Capsule) 1 each TID PEG Last administered on 12/20/16 08:20; Admin Dose 1 EACH; Start 11/23/16 at 21:00 Calcium Carbonate (Tums) 500 mg TID PEG Last administered on 12/20/16 08:15; Admin Dose 500 MG; Start 11/23/16 at 21:00 Metoprolol Tartrate (Lopressor) 25 mg BID GTB Last administered on 12/20/16 08 :16; Admin Dose 25 MG; Start 11/23/16 at 21:00 Metoclopramide HCl (Reglan) 5 mg Q6 PEG Last administered on 12/20/16 05:31; Admin Dose 5 MG; Start 12/03/16 at 01:00 Aspirin (Aspirin) 81 mg MONWEDFRI GTB ; Start 12/09/16 at 09:00; Status Future Hold Clopidogrel Bisulfate (plaVIX) 75 mg MONWEDFRI GTB ; Start 12/09/16 at 09:00; Status Future Hold Lansoprazole (Prevacid) 30 mg DAILY@06 GTB Last administered on 12/20/16 05:31 ; Admin Dose 30 MG; Start 12/12/16 at 06:00 Fluconazole (Diflucan) 100 mg DAILY PO Last administered on 12/20/16 08:15; Admin Dose 100 MG; Start 12/13/16 at 12:00 Insulin Glargine 32 unit 32 unit DAILY@08 SC Last administered on 12/20/16 08: 38; Admin Dose 32 UNIT; Start 12/19/16 at 08:00 Ertapenem/Sodium Chloride (Invanz/NS) 100 ml @ 200 mls/hr Q24H IVPB Last administered on 12/19/16 16:41; Admin Dose 200 MLS/HR; Start 12/18/16 at 16:00 Insulin Aspart (Novolog Insulin Pen) (Adult SC Insulin - Moder... Q4 SC Last administered on 12/20/16 08:39; Admin Dose 4 UNIT; Start 12/20/16 at 09:00 DAMIR MARTINEZ MD Dec 20, 2016 08:59
--- NOTE | 2016-12-20 10:35 | RADRPT ---
PROCEDURE: XR Chest 1 view. CLINICAL INDICATION: Shortness of breath. TECHNIQUE: AP views of the chest were obtained. COMPARISON: December 12, 2016 FINDINGS: The heart is large. Calcified atherosclerosis is noted in the aorta. Right-sided dialysis catheter is stable. Central pulmonary vascular congestion and mild interstitial prominence in both lungs arelis ears unchanged. Patchy infiltrates in the right mid and lower lung, combined with small to moderate pleural effusion are stable. Small left pleural effusion with scattered atelectasis in the left lo wer lobe is unchanged. The osseous structures are osteopenic, but appear grossly intact. IMPRESSION: Cardiomegaly with calcified atherosclerosis in the aorta. Stable mild central pulmonary vascular congestion and interstitial prominence in both lungs. Stable right mid and lower lung infiltrates, combined with small to moderate pleural effusion. Stable small left pleural effusion with atelectasis in the left lower lobe. RPTAT: AA .Ovidio Otoole MD, Date Time Electronically viewed and signed by .Ovidio Otoole MD, MD on 12/20/2016 10:35 .P/
--- NOTE | 2016-12-20 15:49 | PN ---
Date/Time of Note Date/Time of Note DATE: 12/20/16 TIME: 15:48 Assessment/Plan Lines/Catheters IV Catheter Type (from Nrs): PERMACATH Rivas in Place (from Nrs): No Assessment/Plan Assessment/Plan [facility] Progress Note Date of Service: 12/20/16 Today's Impression & Plan: Overall has remained stable with severe acute on chronic cholecystitis with possible localized perforation, s/p CT-guided percutaneous transhepatic cholecystostomy drain placement 12/16/16. No major change in guarded, but slowly improving status. Continues to show signs of slow improvement. GB drainage will likely take a number of weeks prior to adequate resolution of the inflammation prior to any decisions regarding surgical intervention vs. discontinuation of the drain. No indication for acute surgical intervention. With above assessment, I've recommended the following for today: 1. Cont. with current management 2. Check labs in am 3. PEG management per Dr. Helm, and will contribute through multidisciplinary approach 4. Increase nutrition with goal of albumin > 3.5 5. Increase activity 6. ? need for vascular evaluation of lower extremities for possible intervention (not sure if done in the past; if not, may benefit from this) 7. Revisit the issue of feeds and swallowing ability 8. Ok from my standpoint to transfer out of acute care setting to SNF with outpatient follow up with me in 3-4 weeks when OK by other MD's and providers Thank you again for your great care of this very pleasant patient and wonderful family. If there are any questions, please feel free to call me at [phone]. TOTAL VISIT TIME: 20 minutes of which more than half was spent in [id number] discussion with the patient, possibly including family, as well as coordination of care between multiple physicians and providers. Disclaimer: Inadvertent spelling or grammatical errors are likely due to EHR/ dictation software use and do not reflect on the overall quality of patient care. Updated Clinical Summary: A very pleasant 71-year-old lady with multiple comorbid issues including BMI of 35.6 as well as what has been in the hospital since 09/2016 being found unresponsive and multiple issues including congestive heart failure, acute renal failure due to acute tubular necrosis requiring dialysis, urinary tract infection with bacteremia and multiple other issues, who was found to have possible signs of acute cholecystitis on recent imaging. COMORBIDITIES: 1. BMI of 35.6. 2. Acute renal failure (ATN), on maintenance hemodialysis (Friday, , Friday). 3. Congestive heart failure. 4. Anemia. 5. Hypocalcemia. 6. Hypoalbuminemia and malnutrition. 7. Peripheral vascular disease with gangrene of toes of both feet. 8. Recent history of respiratory failure. 9. History of dysphagia requiring PEG placement and feedings. 10. Diabetes mellitus. 11. Leukocytosis from various sources. 12. Funguria with Erica glabrata and Erica albicans of the urine. 13. Escherichia coli and Enterococcus urinary tract infection 10/29/2016. 14. Escherichia coli bacteremia 12/02/2016 (x2 cultures). 15. Repeat culture of the urine 12/02/2016 with E. coli, enterococcus species and Klebsiella pneumoniae, extended-spectrum beta-lactamase. 16. Repeat bacteremia 12/08/2016 with Escherichia coli. 17. Urine positive for Erica albicans 12/11/2016. 18. Clostridium difficile colitis negative on a few stool samples. 19. Bilateral pleural effusions. 20. 2 mm calcified granuloma in the right lower lobe. 21. CT scan of abdomen and pelvis 12/13/2016 showing large amount of pericholecystic fluid with distention of the gallbladder, which could be of acute cholecystitis. 22. Tumefaction sludge, poorly visualized gallstones or soft tissue masses are suspected within the lumen of the distended gallbladder. 23. Anasarca. 24. Status post splenectomy. 25. A 2.8 cm left parapelvic cyst and an adjacent 1.4 cm simple cyst lateral upper portion of the lower third left kidney noted. 26. Atherosclerotic vascular disease. 27. Osteoarthritis of the thoracic and lumbosacral spine. 28. History of acute ST elevation myocardial infarction, inferior wall, status post code STEMI with stent placement, as well as temporary pacer wire. 29. Hyperlipidemia. 30. Possible aspiration pneumonia. 31. S/p CT-guided percutaneous transhepatic cholecystostomy drain placement 06/22, [facility] Subjective: No major events or complaints; no major abd pain; no n/v/d; no sob or cp; + flatus; + BM; minimal activity. No new issues. Objective: Vitals: See below Exam: GENERAL: On exam, the patient was laying in bed and appeared to be comfortable and in no acute distress. ABDOMEN: Soft, nontender and nondistended. There are no peritoneal signs or guarding. Perc GB drain with bilious output. SKIN: Skin appears to be pink and feels warm to touch. NEUROLOGIC: Patient is awake, alert, and follows commands appropriately. Exam/Review of Systems Vital Signs Vitals Vital Signs Date Time Temp Pulse Resp B/P Pulse Ox O2 Delivery O2 Flow Rate FiO2 12/20/16 13:16 77 16 99 21 12/20/16 07:00 98.1 105/53 12/19/16 14:00 Nasal Cannula 12/19/16 10:25 2.0 Intake and Output 12/19/16 12/19/16 12/20/16 15:00 23:00 07:00 Intake Total 100 ml 840 ml 580 ml Output Total 3 ml 2535 ml 20 ml Balance 97 ml -1695 ml 560 ml Results Result Diagram: 12/20/16 0418 12/20/16 0418 SHANA ROSARIO M.D. Dec 20, 2016 15:49
[2016-12-20] MEDS: ERTAPENEM SODIUM 0.5 GM in SOD CHLORIDE 0.9% 100 ML IVPB SCH (15:59)
[2016-12-20] MEDS: ONDANSETRON 4 MG INJ IV PRN (18:31)
[2016-12-20 19:00] VITALS: BP 101/54; RESP 18
--- NOTE | 2016-12-20 21:00 | CONS ---
Date/Time of Note Date/Time of Note DATE: 12/20/16 TIME: 20:59 Assessment/Plan Assessment/Plan Chief Complaint/Hosp Course SUBJECTIVE: No acute changes overnight. No fevers. Alert, just finished PT, feels good, at bedside, nad MICROBIOLOGY: Fluid cultures growing E coli ANTIMICROBIALS: Invanz, Diflucan INDWELLINGS: RSC permacath, PEG, cholecystostomy drain PHYSICAL EXAMINATION: GENERAL: This is a chronically ill-appearing, elderly woman who is in no distress. HEENT: Head atraumatic, normocephalic. Sclerae anicteric. Buccal mucosa dry. NECK: Supple, trachea midline. CHEST: Rise symmetrical. Breath sounds diminished to bases. HEART: S1, S2. ABDOMEN: Soft, bowel sounds present. EXTREMITIES: Without cyanosis. ASSESSMENT: 1. Sepsis with E coli bacteremia, s/p PICC dc'd. 2. Polymicrobial urinary tract infection, repeat urine cx + C albicans. 3. End-stage renal disease, hemodialysis dependent. 4. 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 5. Dysphagia. 6. History of cardiopulmonary arrest. 7. Acute gangrenous cholecystitis, s/p IR drainage==> cx + E coli PLAN: Clinically improved, repeat bld cx 12/12 negative, continue abx. F/u surgical and GI rec-s, consider repeat bld cx with next HD DW staff Problems: Consultation Date/Type/Reason Admit Date/Time Sep 20, 2016 at 19:21 Initial Consult Date 09/23/16 Type of Consultation: ID Referring Provider: ZANDRA ROBISON MD, [facility] Exam/Review of Systems Vital Signs Vitals Vital Signs Date Time Temp Pulse Resp B/P Pulse Ox O2 Delivery O2 Flow Rate FiO2 12/20/16 19:00 98.3 82 18 101/54 98 12/20/16 13:16 21 12/19/16 14:00 Nasal Cannula 12/19/16 10:25 2.0 Intake and Output 12/19/16 12/19/16 12/20/16 15:00 23:00 07:00 Intake Total 100 ml 840 ml 580 ml Output Total 3 ml 2535 ml 20 ml Balance 97 ml -1695 ml 560 ml Results Result Diagram: 12/20/16 0418 12/20/16 0418 Results 24 hrs Laboratory Tests Test 12/19/16 23:36 12/20/16 04:18 12/20/16 05:29 12/20/16 08:23 Bedside Glucose 93 166 185 White Blood Count 14.2 H Red Blood Count 3.74 L Hemoglobin 10.4 L Hematocrit 33.8 L Mean Corpuscular Volume 90.4 Mean Corpuscular Hemoglobin 27.8 L Mean Corpuscular Hemoglobin Concent 30.8 L Red Cell Distribution Width 17.2 H Platelet Count 155 Mean Platelet Volume 10.0 Neutrophils % 79.7 H Lymphocytes % 9.9 L Monocytes % 7.8 Eosinophils % 0.7 Basophils % 0.3 Nucleated Red Blood Cells % 0.3 H Neutrophils # 11.3 H Lymphocytes # 1.4 Monocytes # 1.1 H Eosinophils # 0.1 Basophils # 0.0 Nucleated Red Blood Cells # 0.0 Sodium Level 140 Potassium Level 4.0 Chloride Level 102 Carbon Dioxide Level 29 Anion Gap 13 Blood Urea Nitrogen 28 H Creatinine 1.83 H Glucose Level 126 # Calcium Level 9.4 Test 12/20/16 12:42 12/20/16 17:26 12/20/16 20:38 Bedside Glucose 97 89 93 Medications Medications Current Medications Acetaminophen (Tylenol Liquid) 650 mg Q4H PRN NGT PAIN AND OR ELEVATED TEMP Last administered on 12/18/16 06:32; Admin Dose 650 MG; Start 09/21/16 at 02:00 IV Flush (NS 10 ml) 10 ml PRN PRN IV IV PROTOCOL Last administered on 12/12/16 21:49; Admin Dose 10 ML; Start 09/26/16 at 17:30 Lactulose (Enulose) 20 gm BID PRN PO CONSTIPATION Last administered on 05:34; Admin Dose 20 GM; Start 10/23/16 at 10:30 Amylase/Lipase/ Protease (CREON (12k-38k-60k)) 3 cap Q6 NGT Last administered on 12/20/16 17:27; Admin Dose 3 CAP; Start 10/29/16 at 13:00 Latanoprost (Xalatan) 1 drop HS BOTH EYES Last administered on 12/19/16 21:17 ; Admin Dose 1 DROP; Start 10/31/16 at 21:00 Dorzolamide/ Timolol (Cosopt) 1 drop BID BOTH EYES Last administered on 20:41; Admin Dose 1 DROP; Start 10/31/16 at 21:00 Glucagon (Glucagen) 1 mg Q15M PRN IM DECREASED GLUCOSE Last administered on 12/13 06:04; Admin Dose 1 MG; Start 11/03/16 at 18:00 Ondansetron HCl (Zofran Inj) 4 mg Q4H PRN IV NAUSEA AND/OR VOMITING Last administered on 12/20/16 18:31; Admin Dose 4 MG; Start 11/04/16 at 23:00 Eye Lubricant (Artificial Tears Oph) 2 drop QID BOTH EYES Last administered on 12/20/16 20:41; Admin Dose 2 DROP; Start 11/07/16 at 09:00 Morphine Sulfate (morphine) 1 mg Q3H PRN IV pain Last administered on 04:19; Admin Dose 1 MG; Start 11/10/16 at 08:00 Miscellaneous Information 1 ea NOTE XX ; Start 11/14/16 at 10:00 Glucose (Glutose) 15 gm Q15M PRN PO DECREASED GLUCOSE; Start 11/14/16 at 10:00 Glucose (Glutose) 22.5 gm Q15M PRN PO DECREASED GLUCOSE; Start 11/14/16 at 10: 00 Dextrose (D50w Syringe) 25 ml Q15M PRN IV DECREASED GLUCOSE Last administered on 12/13/16 10:08; Admin Dose 25 ML; Start 11/14/16 at 10:00 Dextrose (D50w Syringe) 50 ml Q15M PRN IV DECREASED GLUCOSE Last administered on 12/07/16 05:29; Admin Dose 50 ML; Start 11/14/16 at 10:00 Glucose (Glutose) 15 gm Q15M PRN BUCCAL DECREASED GLUCOSE; Start 11/14/16 at 10 :00 Escitalopram Oxalate (Lexapro) 10 mg DAILY GTB Last administered on 12/20/16 08:15; Admin Dose 10 MG; Start 11/16/16 at 12:30 Lactobacillus Acidophilus (Florajen3 Capsule) 1 each TID PEG Last administered on 12/20/16 20:41; Admin Dose 1 EACH; Start 11/23/16 at 21:00 Calcium Carbonate (Tums) 500 mg TID PEG Last administered on 12/20/16 18:25; Admin Dose 500 MG; Start 11/23/16 at 21:00 Metoprolol Tartrate (Lopressor) 25 mg BID GTB Last administered on 12/20/16 20 :42; Admin Dose 25 MG; Start 11/23/16 at 21:00 Metoclopramide HCl (Reglan) 5 mg Q6 PEG Last administered on 12/20/16 17:27; Admin Dose 5 MG; Start 12/03/16 at 01:00 Aspirin (Aspirin) 81 mg MONWEDFRI GTB ; Start 12/09/16 at 09:00; Status Future Hold Clopidogrel Bisulfate (plaVIX) 75 mg MONWEDFRI GTB ; Start 12/09/16 at 09:00; Status Future Hold Lansoprazole (Prevacid) 30 mg DAILY@06 GTB Last administered on 12/20/16 05:31 ; Admin Dose 30 MG; Start 12/12/16 at 06:00 Fluconazole 100 mg 100 mg DAILY PO Last administered on 12/20/16 08:15; Admin Dose 100 MG; Start 12/13/16 at 12:00 Ertapenem/Sodium Chloride (Invanz/NS) 100 ml @ 200 mls/hr Q24H IVPB Last administered on 12/20/16 15:59; Admin Dose 200 MLS/HR; Start 12/18/16 at 16:00 Insulin Aspart (Novolog Insulin Pen) (Adult SC Insulin - Moder... Q4 SC Last administered on 12/20/16 08:39; Admin Dose 4 UNIT; Start 12/20/16 at 09:00 Insulin Glargine (Lantus) 36 unit DAILY@08 SC ; Start 12/21/16 at 08:00 ROSALINA SIMS NP Dec 20, 2016 21:00
[2016-12-20] MEDS: ZOLPIDEM 5 MG TAB PO PRN (21:12)
[2016-12-20] MEDS: LATANOPROST 0.005% 2.5 ML OPH BOTH EYES SCH (21:55)
[2016-12-21] VITALS (8 sets, daily range): BP systolic 97–120; BP diastolic 51–76; PULSE 76–78; RESP 18
[2016-12-21] MEDS: METOCLOPRAMIDE 10 MG TAB PEG SCH ×4 (00:34→17:50)
[2016-12-21] MEDS: INSULIN ASPART [NOVOLOG] 3 ML PEN SC SCH ×6 (00:34→21:26)
[2016-12-21] MEDS: CREON (12k-38k-60k) 1 CAP NGT SCH ×4 (00:34→17:50)
[2016-12-21] MEDS: IPRATROPIUM (NEB) 0.5 MG/2.5 ML AMP HHN SCH ×4 (02:00→22:06)
[2016-12-21] MEDS: LEVALBUTEROL (NEB) 1.25 MG/0.5 ML AMP HHN SCH ×4 (02:00→22:06)
[2016-12-21] MEDS: LANSOPRAZOLE 30 MG CAP GTB SCH (05:33)
[2016-12-21] MEDS: CALCIUM CARBONATE 500 MG CHEW TAB PEG SCH ×3 (08:25→21:21)
[2016-12-21] MEDS: ESCITALOPRAM 10 MG TAB GTB SCH (08:25)
[2016-12-21] MEDS: L ACIDOPHIL/B LACTIS/B LONGUM CAPSULE PEG SCH ×3 (08:25→21:21)
[2016-12-21] MEDS: DORZOLAMIDE/TIMOLOL 10 ML OPH BOTH EYES SCH ×2 (08:25→21:21)
[2016-12-21] MEDS: ARTIFICIAL TEARS 15 ML OPH BOTH EYES SCH ×4 (08:25→21:21)
[2016-12-21] MEDS: FLUCONAZOLE 100 MG TAB PO SCH (08:25)
[2016-12-21] MEDS: INSULIN GLARGINE [LANtus] 3 ML PEN SC SCH (08:32)
[2016-12-21] MEDS: METOPROLOL 25 MG TAB GTB SCH ×2 (09:00→21:22)
[2016-12-21] MEDS: ERTAPENEM SODIUM 0.5 GM in SOD CHLORIDE 0.9% 100 ML IVPB SCH (17:51)
[2016-12-21] MEDS: ONDANSETRON 4 MG INJ IV PRN (17:55)
--- NOTE | 2016-12-21 20:42 | CONS ---
Date/Time of Note Date/Time of Note DATE: 12/21/16 TIME: 16:12 Assessment/Plan Assessment/Plan Chief Complaint/Hosp Course 1. Acute Renal Failure due to ATN . She is now on maintenance hemodialysis T T S . Tolerating HD today. 2. ALOC , no change 3. She has a cholecystostomy in the gallbladder draining dark fluid. 4. CHF clinically compensated 5. hypocalcemia/hypoalbuminemia 6. anemia , She has no active GI bleeding now. 7. peripheral vascular disease .gangrene of toes of both feet . 8. respiratory failure , pulmonary function has improved . 9 dysphagia , she has a PEG . 10. discharge planning . She can be discharged to home or SNF , with outpatient dialysis . 11. DM blood sugars now in good range Problems: Consultation Date/Type/Reason Admit Date/Time Sep 20, 2016 at 19:21 Initial Consult Date 10/22/16 Type of Consultation: Nephrology Referring Provider: ZANDRA ROBISON MD, [facility] 24 HR Interval Summary Free Text/Dictation The patient was seen on dialysis. No complaints Exam/Review of Systems Vital Signs Vitals Vital Signs Date Time Temp Pulse Resp B/P Pulse Ox O2 Delivery O2 Flow Rate FiO2 12/21/16 16:06 78 12/21/16 14:20 16 12/21/16 08:33 96 21 12/21/16 07:00 98.6 118/59 12/19/16 14:00 Nasal Cannula 12/19/16 10:25 2.0 Intake and Output 12/20/16 12/20/16 12/21/16 15:00 23:00 07:00 Intake Total 640 ml Output Total 10 ml Balance 630 ml Exam Constitutional: alert Head: normocephalic Respiratory: clear to auscultation Cardiovascular: regular rate and rhythm Gastrointestinal: non-tender, soft Extremities: No edema Results Result Diagram: 12/20/16 0418 12/20/16 0418 Results 24 hrs Laboratory Tests Test 12/20/16 17:26 12/20/16 20:38 12/21/16 00:32 12/21/16 05:29 Bedside Glucose 89 93 143 145 Test 12/21/16 08:27 12/21/16 12:43 Bedside Glucose 149 142 Medications Medications Current Medications Acetaminophen (Tylenol Liquid) 650 mg Q4H PRN NGT PAIN AND OR ELEVATED TEMP Last administered on 12/18/16 06:32; Admin Dose 650 MG; Start 09/21/16 at 02:00 IV Flush (NS 10 ml) 10 ml PRN PRN IV IV PROTOCOL Last administered on 12/12/16 21:49; Admin Dose 10 ML; Start 09/26/16 at 17:30 Lactulose (Enulose) 20 gm BID PRN PO CONSTIPATION Last administered on 05:34; Admin Dose 20 GM; Start 10/23/16 at 10:30 Amylase/Lipase/ Protease (CREON (12c-75k-60k)) 3 cap Q6 NGT Last administered on 12/21/16 12:45; Admin Dose 3 CAP; Start 10/29/16 at 13:00 Latanoprost (Xalatan) 1 drop HS BOTH EYES Last administered on 12/20/16 21:55 ; Admin Dose 1 DROP; Start 10/31/16 at 21:00 Dorzolamide/ Timolol (Cosopt) 1 drop BID BOTH EYES Last administered on 08:25; Admin Dose 1 DROP; Start 10/31/16 at 21:00 Glucagon (Glucagen) 1 mg Q15M PRN IM DECREASED GLUCOSE Last administered on 12/13 06:04; Admin Dose 1 MG; Start 11/03/16 at 18:00 Ondansetron HCl (Zofran Inj) 4 mg Q4H PRN IV NAUSEA AND/OR VOMITING Last administered on 12/20/16 18:31; Admin Dose 4 MG; Start 11/04/16 at 23:00 Eye Lubricant (Artificial Tears Oph) 2 drop QID BOTH EYES Last administered on 12/21/16 12:45; Admin Dose 2 DROP; Start 11/07/16 at 09:00 Morphine Sulfate (morphine) 1 mg Q3H PRN IV pain Last administered on 04:19; Admin Dose 1 MG; Start 11/10/16 at 08:00 Miscellaneous Information 1 ea NOTE XX ; Start 11/14/16 at 10:00 Glucose (Glutose) 15 gm Q15M PRN PO DECREASED GLUCOSE; Start 11/14/16 at 10:00 Glucose (Glutose) 22.5 gm Q15M PRN PO DECREASED GLUCOSE; Start 11/14/16 at 10: 00 Dextrose (D50w Syringe) 25 ml Q15M PRN IV DECREASED GLUCOSE Last administered on 12/13/16 10:08; Admin Dose 25 ML; Start 11/14/16 at 10:00 Dextrose (D50w Syringe) 50 ml Q15M PRN IV DECREASED GLUCOSE Last administered on 12/07/16 05:29; Admin Dose 50 ML; Start 11/14/16 at 10:00 Glucose (Glutose) 15 gm Q15M PRN BUCCAL DECREASED GLUCOSE; Start 11/14/16 at 10 :00 Escitalopram Oxalate (Lexapro) 10 mg DAILY GTB Last administered on 12/21/16 08:25; Admin Dose 10 MG; Start 11/16/16 at 12:30 Lactobacillus Acidophilus (Florajen3 Capsule) 1 each TID PEG Last administered on 12/21/16 12:45; Admin Dose 1 EACH; Start 11/23/16 at 21:00 Calcium Carbonate (Tums) 500 mg TID PEG Last administered on 12/21/16 12:45; Admin Dose 500 MG; Start 11/23/16 at 21:00 Metoprolol Tartrate (Lopressor) 25 mg BID GTB Last administered on 12/20/16 20 :42; Admin Dose 25 MG; Start 11/23/16 at 21:00 Metoclopramide HCl (Reglan) 5 mg Q6 PEG Last administered on 12/21/16 12:45; Admin Dose 5 MG; Start 12/03/16 at 01:00 Aspirin (Aspirin) 81 mg MONWEDFRI GTB ; Start 12/09/16 at 09:00; Status Future Hold Clopidogrel Bisulfate (plaVIX) 75 mg MONWEDFRI GTB ; Start 12/09/16 at 09:00; Status Future Hold Lansoprazole (Prevacid) 30 mg DAILY@06 GTB Last administered on 12/21/16 05:33 ; Admin Dose 30 MG; Start 12/12/16 at 06:00 Fluconazole 100 mg 100 mg DAILY PO Last administered on 12/21/16 08:25; Admin Dose 100 MG; Start 12/13/16 at 12:00 Ertapenem/Sodium Chloride (Invanz/NS) 100 ml @ 200 mls/hr Q24H IVPB Last administered on 12/20/16 15:59; Admin Dose 200 MLS/HR; Start 12/18/16 at 16:00 Insulin Aspart (Novolog Insulin Pen) (Adult SC Insulin - Moder... Q4 SC Last administered on 12/21/16 12:47; Admin Dose 2 UNIT; Start 12/20/16 at 09:00 Insulin Glargine (Lantus) 36 unit DAILY@08 SC Last administered on 12/21/16 08 :32; Admin Dose 36 UNIT; Start 12/21/16 at 08:00 SHAW LY MD Dec 21, 2016 16:16
--- NOTE | 2016-12-21 20:43 | CONS ---
Date/Time of Note Date/Time of Note DATE: 12/21/16 TIME: 16:28 Assessment/Plan Assessment/Plan Chief Complaint/Hosp Course ID PROGRESS NOTE CURRENT ABX=> Diflucan + Ertapenem #3 24H INTERVAL SUMMARY * VSS, no fevers, WBC down today * micro 12/16/16 Genie Drain WOUND CULTURE Final Organism 1 ESCHERICHIA COLI QUANTITY 1+ E COLI M.I.C. RX --------- --- AMPICILLIN 4 S CEFAZOLIN I CEFOTAXIME S CIPROFLOXACIN <=0.25 S GENTAMICIN <=1 S LEVOFLOXACIN <=0.12 S TOBRAMYCIN <=1 S TRIMETHOPRIM/SULFAMETHOXAZOLE <=20 S PHYSICAL EXAMINATION: GENERAL: VSS, NAD, Afebrile HEENT: Unremarkable NECK: Supple, trachea midline. CHEST: Rise symmetrical, without dyspnea on observation HEART: Pulse RRR ABDOMEN: Soft, drain EXTREMITIES: Warm ID ASSESSMENT 71 yo F admit with: 1. s/p GNR septicemia 12/08/16 => PICC Line DC'd 2. Acute gangrenous cholecystitis, s/p IR drainage 12/16/16 ==> cx + E coli 3. Erica albicans urinary tract infection. 4. Acute on chronic kidney disease. 5. Acute myocardial infarction, status post percutaneous transluminal coronary angioplasty. 6. Paroxysmal atrial fibrillation. 7. s/p pneumonia. (-)MRSA Nares INVASIVES: PEG, PermCath, Drain ABX ALLERGY: None to ABX CURRENT ABX: Diflucan + Ertapenem #3 ID RECOMMENDATIONS 1. Continue current ABX 2. ID team will continue to follow . Problems: Consultation Date/Type/Reason Admit Date/Time Sep 20, 2016 at 19:21 Initial Consult Date 09/23/16 Type of Consultation: ID Referring Provider: ZANDRA ROBISON MD, [facility] Exam/Review of Systems Vital Signs Vitals Vital Signs Date Time Temp Pulse Resp B/P Pulse Ox O2 Delivery O2 Flow Rate FiO2 12/21/16 16:06 78 12/21/16 14:20 16 12/21/16 08:33 96 21 12/21/16 07:00 98.6 118/59 12/19/16 14:00 Nasal Cannula 12/19/16 10:25 2.0 Intake and Output 12/20/16 12/20/16 12/21/16 15:00 23:00 07:00 Intake Total 640 ml Output Total 10 ml Balance 630 ml Results Result Diagram: 12/20/16 0418 12/20/16 0418 Results 24 hrs Laboratory Tests Test 12/20/16 17:26 12/20/16 20:38 12/21/16 00:32 12/21/16 05:29 Bedside Glucose 89 93 143 145 Test 12/21/16 08:27 12/21/16 12:43 Bedside Glucose 149 142 Medications Medications Current Medications Acetaminophen (Tylenol Liquid) 650 mg Q4H PRN NGT PAIN AND OR ELEVATED TEMP Last administered on 12/18/16 06:32; Admin Dose 650 MG; Start 09/21/16 at 02:00 IV Flush (NS 10 ml) 10 ml PRN PRN IV IV PROTOCOL Last administered on 12/12/16 21:49; Admin Dose 10 ML; Start 09/26/16 at 17:30 Lactulose (Enulose) 20 gm BID PRN PO CONSTIPATION Last administered on 05:34; Admin Dose 20 GM; Start 10/23/16 at 10:30 Amylase/Lipase/ Protease (CREON (12k-38k-60k)) 3 cap Q6 NGT Last administered on 12/21/16 12:45; Admin Dose 3 CAP; Start 10/29/16 at 13:00 Latanoprost (Xalatan) 1 drop HS BOTH EYES Last administered on 12/20/16 21:55 ; Admin Dose 1 DROP; Start 10/31/16 at 21:00 Dorzolamide/ Timolol (Cosopt) 1 drop BID BOTH EYES Last administered on 08:25; Admin Dose 1 DROP; Start 10/31/16 at 21:00 Glucagon (Glucagen) 1 mg Q15M PRN IM DECREASED GLUCOSE Last administered on 12/13 06:04; Admin Dose 1 MG; Start 11/03/16 at 18:00 Ondansetron HCl (Zofran Inj) 4 mg Q4H PRN IV NAUSEA AND/OR VOMITING Last administered on 12/20/16 18:31; Admin Dose 4 MG; Start 11/04/16 at 23:00 Eye Lubricant (Artificial Tears Oph) 2 drop QID BOTH EYES Last administered on 12/21/16 12:45; Admin Dose 2 DROP; Start 11/07/16 at 09:00 Morphine Sulfate (morphine) 1 mg Q3H PRN IV pain Last administered on 04:19; Admin Dose 1 MG; Start 11/10/16 at 08:00 Miscellaneous Information 1 ea NOTE XX ; Start 11/14/16 at 10:00 Glucose (Glutose) 15 gm Q15M PRN PO DECREASED GLUCOSE; Start 11/14/16 at 10:00 Glucose (Glutose) 22.5 gm Q15M PRN PO DECREASED GLUCOSE; Start 11/14/16 at 10: 00 Dextrose (D50w Syringe) 25 ml Q15M PRN IV DECREASED GLUCOSE Last administered on 12/13/16 10:08; Admin Dose 25 ML; Start 11/14/16 at 10:00 Dextrose (D50w Syringe) 50 ml Q15M PRN IV DECREASED GLUCOSE Last administered on 12/07/16 05:29; Admin Dose 50 ML; Start 11/14/16 at 10:00 Glucose (Glutose) 15 gm Q15M PRN BUCCAL DECREASED GLUCOSE; Start 11/14/16 at 10 :00 Escitalopram Oxalate (Lexapro) 10 mg DAILY GTB Last administered on 12/21/16 08:25; Admin Dose 10 MG; Start 11/16/16 at 12:30 Lactobacillus Acidophilus (Florajen3 Capsule) 1 each TID PEG Last administered on 12/21/16 12:45; Admin Dose 1 EACH; Start 11/23/16 at 21:00 Calcium Carbonate (Tums) 500 mg TID PEG Last administered on 12/21/16 12:45; Admin Dose 500 MG; Start 11/23/16 at 21:00 Metoprolol Tartrate (Lopressor) 25 mg BID GTB Last administered on 12/20/16 20 :42; Admin Dose 25 MG; Start 11/23/16 at 21:00 Metoclopramide HCl (Reglan) 5 mg Q6 PEG Last administered on 12/21/16 12:45; Admin Dose 5 MG; Start 12/03/16 at 01:00 Aspirin (Aspirin) 81 mg MONWEDFRI GTB ; Start 12/09/16 at 09:00; Status Future Hold Clopidogrel Bisulfate (plaVIX) 75 mg MONWEDFRI GTB ; Start 12/09/16 at 09:00; Status Future Hold Lansoprazole (Prevacid) 30 mg DAILY@06 GTB Last administered on 12/21/16 05:33 ; Admin Dose 30 MG; Start 12/12/16 at 06:00 Fluconazole 100 mg 100 mg DAILY PO Last administered on 12/21/16 08:25; Admin Dose 100 MG; Start 12/13/16 at 12:00 Ertapenem/Sodium Chloride (Invanz/NS) 100 ml @ 200 mls/hr Q24H IVPB Last administered on 12/20/16 15:59; Admin Dose 200 MLS/HR; Start 12/18/16 at 16:00 Insulin Aspart (Novolog Insulin Pen) (Adult SC Insulin - Moder... Q4 SC Last administered on 12/21/16 12:47; Admin Dose 2 UNIT; Start 12/20/16 at 09:00 Insulin Glargine (Lantus) 36 unit DAILY@08 SC Last administered on 12/21/16 08 :32; Admin Dose 36 UNIT; Start 12/21/16 at 08:00 JUSTIN YAO NP Dec 21, 2016 16:35
--- NOTE | 2016-12-21 21:15 | PN ---
Date/Time of Note Date/Time of Note DATE: 12/21/16 TIME: 21:08 Assessment/Plan Lines/Catheters IV Catheter Type (from [facility] PERMACTH Rivas in Place (from [facility]): No Assessment/Plan Assessment/Plan [facility] Progress Note Date of Service: 12/21/16 Today's Impression & Plan: Overall has remained stable and slowly improving. No indication for acute surgical intervention. With above assessment, I've recommended the following for today: 1. Cont. with current management 2. Ok from my standpoint to transfer out of acute care setting to SNF with outpatient follow up with me in 3-4 weeks when OK by other MD's and providers Thank you again for your great care of this very pleasant patient and wonderful family. If there are any questions, please feel free to call me at [phone]. TOTAL VISIT TIME: 20 minutes of which more than half was spent in [id number] discussion with the patient, possibly including family, as well as coordination of care between multiple physicians and providers. Disclaimer: Inadvertent spelling or grammatical errors are likely due to EHR/ dictation software use and do not reflect on the overall quality of patient care. Updated Clinical Summary: A very pleasant 71-year-old lady with multiple comorbid issues including BMI of 35.6 as well as what has been in the hospital since 09/2016 being found unresponsive and multiple issues including congestive heart failure, acute renal failure due to acute tubular necrosis requiring dialysis, urinary tract infection with bacteremia and multiple other issues, who was found to have possible signs of acute cholecystitis on recent imaging. COMORBIDITIES: 1. BMI of 35.6. 2. Acute renal failure (ATN), on maintenance hemodialysis (Friday, , Friday). 3. Congestive heart failure. 4. Anemia. 5. Hypocalcemia. 6. Hypoalbuminemia and malnutrition. 7. Peripheral vascular disease with gangrene of toes of both feet. 8. Recent history of respiratory failure. 9. History of dysphagia requiring PEG placement and feedings. 10. Diabetes mellitus. 11. Leukocytosis from various sources. 12. Funguria with Erica glabrata and Erica albicans of the urine. 13. Escherichia coli and Enterococcus urinary tract infection 10/29/2016. 14. Escherichia coli bacteremia 12/02/2016 (x2 cultures). 15. Repeat culture of the urine 12/02/2016 with E. coli, enterococcus species and Klebsiella pneumoniae, extended-spectrum beta-lactamase. 16. Repeat bacteremia 12/08/2016 with Escherichia coli. 17. Urine positive for Erica albicans 12/11/2016. 18. Clostridium difficile colitis negative on a few stool samples. 19. Bilateral pleural effusions. 20. 2 mm calcified granuloma in the right lower lobe. 21. CT scan of abdomen and pelvis 12/13/2016 showing large amount of pericholecystic fluid with distention of the gallbladder, which could be of acute cholecystitis. 22. Tumefaction sludge, poorly visualized gallstones or soft tissue masses are suspected within the lumen of the distended gallbladder. 23. Anasarca. 24. Status post splenectomy. 25. A 2.8 cm left parapelvic cyst and an adjacent 1.4 cm simple cyst lateral upper portion of the lower third left kidney noted. 26. Atherosclerotic vascular disease. 27. Osteoarthritis of the thoracic and lumbosacral spine. 28. History of acute ST elevation myocardial infarction, inferior wall, status post code STEMI with stent placement, as well as temporary pacer wire. 29. Hyperlipidemia. 30. Possible aspiration pneumonia. 31. S/p CT-guided percutaneous transhepatic cholecystostomy drain placement 06/22, [facility] Subjective: No major events or complaints; no major abd pain; no n/v/d; no sob or cp; + flatus; + BM; minimal activity. No new issues. Being visited with and [id number] and family. Objective: Vitals: See below Exam: GENERAL: On exam, the patient was laying in bed and appeared to be comfortable and in no acute distress. ABDOMEN: Soft, nontender and nondistended. There are no peritoneal signs or guarding. Perc GB drain with bilious output. SKIN: Skin appears to be pink and feels warm to touch. NEUROLOGIC: Patient is awake, alert, and follows commands appropriately. Exam/Review of Systems Vital Signs Vitals Vital Signs Date Time Temp Pulse Resp B/P Pulse Ox O2 Delivery O2 Flow Rate FiO2 12/21/16 19:00 98.1 83 18 106/51 95 12/21/16 08:33 21 12/19/16 14:00 Nasal Cannula 12/19/16 10:25 2.0 Intake and Output 12/20/16 12/20/16 12/21/16 15:00 23:00 07:00 Intake Total 640 ml Output Total 10 ml Balance 630 ml Results Result Diagram: 12/20/16 0418 12/20/16 0418 SHANA ROSARIO M.D. Dec 21, 2016 21:15
[2016-12-21] MEDS: LATANOPROST 0.005% 2.5 ML OPH BOTH EYES SCH (21:21)
[2016-12-21] MEDS: ZOLPIDEM 5 MG TAB PO PRN (21:28)
[2016-12-22] MEDS: CREON (12k-38k-60k) 1 CAP NGT SCH ×5 (00:23→23:41)
[2016-12-22] MEDS: METOCLOPRAMIDE 10 MG TAB PEG SCH ×5 (00:23→23:39)
[2016-12-22] MEDS: INSULIN ASPART [NOVOLOG] 3 ML PEN SC SCH ×6 (00:36→21:00)
[2016-12-22] MEDS: IPRATROPIUM (NEB) 0.5 MG/2.5 ML AMP HHN SCH ×4 (03:12→19:55)
[2016-12-22] MEDS: LEVALBUTEROL (NEB) 1.25 MG/0.5 ML AMP HHN SCH ×4 (03:12→19:55)
[2016-12-22] MEDS: LANSOPRAZOLE 30 MG CAP GTB SCH (06:15)
[2016-12-22 08:13] VITALS: BP 105/51; RESP 20
[2016-12-22] MEDS: ARTIFICIAL TEARS 15 ML OPH BOTH EYES SCH ×4 (09:18→21:16)
[2016-12-22] MEDS: DORZOLAMIDE/TIMOLOL 10 ML OPH BOTH EYES SCH ×2 (09:18→21:15)
[2016-12-22] MEDS: ESCITALOPRAM 10 MG TAB GTB SCH (09:18)
[2016-12-22] MEDS: CALCIUM CARBONATE 500 MG CHEW TAB PEG SCH ×3 (09:19→21:16)
[2016-12-22] MEDS: METOPROLOL 25 MG TAB GTB SCH ×2 (09:19→21:16)
[2016-12-22] MEDS: L ACIDOPHIL/B LACTIS/B LONGUM CAPSULE PEG SCH ×3 (09:19→21:16)
[2016-12-22] MEDS: FLUCONAZOLE 100 MG TAB PO SCH (09:19)
[2016-12-22] MEDS: INSULIN GLARGINE [LANtus] 3 ML PEN SC SCH (09:24)
--- NOTE | 2016-12-22 10:57 | CONS ---
Date/Time of Note Date/Time of Note DATE: 12/22/16 TIME: 10:55 Assessment/Plan Assessment/Plan Chief Complaint/Hosp Course 1. Acute Renal Failure due to ATN . She is now on maintenance hemodialysis T T S . Next HD in 2 days 2. ALOC , no change 3. She has a cholecystostomy in the gallbladder draining dark fluid. 4. CHF clinically compensated 5. hypocalcemia/hypoalbuminemia 6. anemia , She has no active GI bleeding now. 7. peripheral vascular disease .gangrene of toes of both feet . 8. respiratory failure , pulmonary function has improved . 9 dysphagia , she has a PEG . 10. discharge planning . She can be discharged to home or SNF , with outpatient dialysis . 11. DM blood sugars now in good range Problems: Consultation Date/Type/Reason Admit Date/Time Sep 20, 2016 at 19:21 Initial Consult Date 10/22/16 Type of Consultation: ID Referring Provider: ZANDRA ROBISON [facility] Interval Summary Free Text/Dictation Alert, denies discomfort,non-verbal Exam/Review of Systems Vital Signs Vitals Vital Signs Date Time Temp Pulse Resp B/P Pulse Ox O2 Delivery O2 Flow Rate FiO2 12/22/16 08:30 79 18 95 21 12/22/16 08:13 98.9 105/51 12/19/16 14:00 Nasal Cannula 12/19/16 10:25 2.0 Intake and Output 12/21/16 12/21/16 12/22/16 15:00 23:00 07:00 Intake Total 700 ml 750 ml Output Total 10 ml 10 ml 10 ml Balance 690 ml 740 ml -10 ml Exam Constitutional: alert Neck: supple, No jvd Respiratory: clear to auscultation Cardiovascular: regular rate and rhythm Gastrointestinal: non-tender, soft Extremities: other (dry gangrene toes bialterally), No edema Results Result Diagram: 12/20/16 0418 12/20/16 0418 Results 24 hrs Laboratory Tests Test 12/21/16 12:43 12/21/16 21:19 12/22/16 00:33 12/22/16 05:30 Bedside Glucose 142 176 156 115 Test 12/22/16 09:16 Bedside Glucose 168 Medications Medications Current Medications Acetaminophen (Tylenol Liquid) 650 mg Q4H PRN NGT PAIN AND OR ELEVATED TEMP Last administered on 12/18/16 06:32; Admin Dose 650 MG; Start 09/21/16 at 02:00 IV Flush (NS 10 ml) 10 ml PRN PRN IV IV PROTOCOL Last administered on 12/12/16 21:49; Admin Dose 10 ML; Start 09/26/16 at 17:30 Lactulose (Enulose) 20 gm BID PRN PO CONSTIPATION Last administered on 05:34; Admin Dose 20 GM; Start 10/23/16 at 10:30 Amylase/Lipase/ Protease (CREON (12l-34k-60k)) 3 cap Q6 NGT Last administered on 12/22/16 06:15; Admin Dose 3 CAP; Start 10/29/16 at 13:00 Latanoprost (Xalatan) 1 drop HS BOTH EYES Last administered on 12/21/16 21:21 ; Admin Dose 1 DROP; Start 10/31/16 at 21:00 Dorzolamide/ Timolol (Cosopt) 1 drop BID BOTH EYES Last administered on 09:18; Admin Dose 1 DROP; Start 10/31/16 at 21:00 Glucagon (Glucagen) 1 mg Q15M PRN IM DECREASED GLUCOSE Last administered on 12/13 06:04; Admin Dose 1 MG; Start 11/03/16 at 18:00 Ondansetron HCl (Zofran Inj) 4 mg Q4H PRN IV NAUSEA AND/OR VOMITING Last administered on 12/21/16 17:55; Admin Dose 4 MG; Start 11/04/16 at 23:00 Eye Lubricant (Artificial Tears Oph) 2 drop QID BOTH EYES Last administered on 12/22/16 09:18; Admin Dose 2 DROP; Start 11/07/16 at 09:00 Morphine Sulfate (morphine) 1 mg Q3H PRN IV pain Last administered on 04:19; Admin Dose 1 MG; Start 11/10/16 at 08:00 Miscellaneous Information 1 ea NOTE XX ; Start 11/14/16 at 10:00 Glucose (Glutose) 15 gm Q15M PRN PO DECREASED GLUCOSE; Start 11/14/16 at 10:00 Glucose (Glutose) 22.5 gm Q15M PRN PO DECREASED GLUCOSE; Start 11/14/16 at 10: 00 Dextrose (D50w Syringe) 25 ml Q15M PRN IV DECREASED GLUCOSE Last administered on 12/13/16 10:08; Admin Dose 25 ML; Start 11/14/16 at 10:00 Dextrose (D50w Syringe) 50 ml Q15M PRN IV DECREASED GLUCOSE Last administered on 12/07/16 05:29; Admin Dose 50 ML; Start 11/14/16 at 10:00 Glucose (Glutose) 15 gm Q15M PRN BUCCAL DECREASED GLUCOSE; Start 11/14/16 at 10 :00 Escitalopram Oxalate (Lexapro) 10 mg DAILY GTB Last administered on 12/22/16 09:18; Admin Dose 10 MG; Start 11/16/16 at 12:30 Lactobacillus Acidophilus (Florajen3 Capsule) 1 each TID PEG Last administered on 12/22/16 09:19; Admin Dose 1 EACH; Start 11/23/16 at 21:00 Calcium Carbonate (Tums) 500 mg TID PEG Last administered on 12/22/16 09:19; Admin Dose 500 MG; Start 11/23/16 at 21:00 Metoprolol Tartrate (Lopressor) 25 mg BID GTB Last administered on 12/22/16 09 :19; Admin Dose 25 MG; Start 11/23/16 at 21:00 Metoclopramide HCl (Reglan) 5 mg Q6 PEG Last administered on 12/22/16 06:15; Admin Dose 5 MG; Start 12/03/16 at 01:00 Aspirin (Aspirin) 81 mg MONWEDFRI GTB ; Start 12/09/16 at 09:00; Status Future Hold Clopidogrel Bisulfate (plaVIX) 75 mg MONWEDFRI GTB ; Start 12/09/16 at 09:00; Status Future Hold Lansoprazole (Prevacid) 30 mg DAILY@06 GTB Last administered on 12/22/16 06:15 ; Admin Dose 30 MG; Start 12/12/16 at 06:00 Fluconazole 100 mg 100 mg DAILY PO Last administered on 12/22/16 09:19; Admin Dose 100 MG; Start 12/13/16 at 12:00 Ertapenem/Sodium Chloride (Invanz/NS) 100 ml @ 200 mls/hr Q24H IVPB Last administered on 12/21/16 17:51; Admin Dose 200 MLS/HR; Start 12/18/16 at 16:00 Insulin Aspart (Novolog Insulin Pen) (Adult SC Insulin - Moder... Q4 SC Last administered on 12/22/16 09:26; Admin Dose 2 UNIT; Start 12/20/16 at 09:00 Insulin Glargine (Lantus) 36 unit DAILY@08 SC Last administered on 12/22/16 09 :24; Admin Dose 36 UNIT; Start 12/21/16 at 08:00 SHAW LY MD Dec 22, 2016 10:57
--- NOTE | 2016-12-22 11:52 | CONS ---
Date/Time of Note Date/Time of Note DATE: 12/22/16 TIME: 11:49 Assessment/Plan Assessment/Plan Chief Complaint/Hosp Course SUBJECTIVE: No acute changes overnight. No fevers. Alert. Complains of abdominal pain. MICROBIOLOGY: Fluid cultures growing E coli ANTIMICROBIALS: Invanz, Diflucan INDWELLINGS: RSC permacath, PEG, cholecystostomy drain PHYSICAL EXAMINATION: GENERAL: This is a chronically ill-appearing, elderly woman who is in no distress. HEENT: Head atraumatic, normocephalic. Sclerae anicteric. Buccal mucosa dry. NECK: Supple, trachea midline. CHEST: Rise symmetrical. Breath sounds diminished to bases. HEART: S1, S2. ABDOMEN: Soft, bowel sounds present. EXTREMITIES: Without cyanosis. ASSESSMENT: 1. Sepsis with E coli bacteremia, s/p PICC dc'd. 2. Polymicrobial urinary tract infection, repeat urine cx + C albicans. 3. End-stage renal disease, hemodialysis dependent. 4. 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 5. Dysphagia. 6. History of cardiopulmonary arrest. 7. Acute gangrenous cholecystitis, s/p IR drainage==> cx + E coli 8. Abdominal Pain. 9. Leukocytosis. PLAN: Clinically stable. Repeat blood cx 12/12 negative. Continue Abx. F/u surgical and GI recombinations. Pain management. Monitor Labs. DW staff. Problems: Consultation Date/Type/Reason Admit Date/Time Sep 20, 2016 at 19:21 Initial Consult Date 10/22/16 Type of Consultation: ID Referring Provider: ZANDRA ROBISON MD, [facility] Exam/Review of Systems Vital Signs Vitals Vital Signs Date Time Temp Pulse Resp B/P Pulse Ox O2 Delivery O2 Flow Rate FiO2 12/22/16 08:30 79 18 95 21 12/22/16 08:13 98.9 105/51 12/19/16 14:00 Nasal Cannula 12/19/16 10:25 2.0 Intake and Output 12/21/16 12/21/16 12/22/16 15:00 23:00 07:00 Intake Total 700 ml 750 ml Output Total 10 ml 10 ml 10 ml Balance 690 ml 740 ml -10 ml Results Result Diagram: 12/20/16 0418 12/20/16 0418 Results 24 hrs Laboratory Tests Test 12/21/16 12:43 12/21/16 21:19 12/22/16 00:33 12/22/16 05:30 Bedside Glucose 142 176 156 115 Test 12/22/16 09:16 Bedside Glucose 168 Medications Medications Current Medications Acetaminophen (Tylenol Liquid) 650 mg Q4H PRN NGT PAIN AND OR ELEVATED TEMP Last administered on 12/18/16 06:32; Admin Dose 650 MG; Start 09/21/16 at 02:00 IV Flush (NS 10 ml) 10 ml PRN PRN IV IV PROTOCOL Last administered on 12/12/16 21:49; Admin Dose 10 ML; Start 09/26/16 at 17:30 Lactulose (Enulose) 20 gm BID PRN PO CONSTIPATION Last administered on 05:34; Admin Dose 20 GM; Start 10/23/16 at 10:30 Amylase/Lipase/ Protease (CREON (12k-38k-60k)) 3 cap Q6 NGT Last administered on 12/22/16 06:15; Admin Dose 3 CAP; Start 10/29/16 at 13:00 Latanoprost (Xalatan) 1 drop HS BOTH EYES Last administered on 12/21/16 21:21 ; Admin Dose 1 DROP; Start 10/31/16 at 21:00 Dorzolamide/ Timolol (Cosopt) 1 drop BID BOTH EYES Last administered on 09:18; Admin Dose 1 DROP; Start 10/31/16 at 21:00 Glucagon (Glucagen) 1 mg Q15M PRN IM DECREASED GLUCOSE Last administered on 12/13 06:04; Admin Dose 1 MG; Start 11/03/16 at 18:00 Ondansetron HCl (Zofran Inj) 4 mg Q4H PRN IV NAUSEA AND/OR VOMITING Last administered on 12/21/16 17:55; Admin Dose 4 MG; Start 11/04/16 at 23:00 Eye Lubricant (Artificial Tears Oph) 2 drop QID BOTH EYES Last administered on 12/22/16 09:18; Admin Dose 2 DROP; Start 11/07/16 at 09:00 Morphine Sulfate (morphine) 1 mg Q3H PRN IV pain Last administered on 04:19; Admin Dose 1 MG; Start 11/10/16 at 08:00 Miscellaneous Information 1 ea NOTE XX ; Start 11/14/16 at 10:00 Glucose (Glutose) 15 gm Q15M PRN PO DECREASED GLUCOSE; Start 11/14/16 at 10:00 Glucose (Glutose) 22.5 gm Q15M PRN PO DECREASED GLUCOSE; Start 11/14/16 at 10: 00 Dextrose (D50w Syringe) 25 ml Q15M PRN IV DECREASED GLUCOSE Last administered on 12/13/16 10:08; Admin Dose 25 ML; Start 11/14/16 at 10:00 Dextrose (D50w Syringe) 50 ml Q15M PRN IV DECREASED GLUCOSE Last administered on 12/07/16 05:29; Admin Dose 50 ML; Start 11/14/16 at 10:00 Glucose (Glutose) 15 gm Q15M PRN BUCCAL DECREASED GLUCOSE; Start 11/14/16 at 10 :00 Escitalopram Oxalate (Lexapro) 10 mg DAILY GTB Last administered on 12/22/16 09:18; Admin Dose 10 MG; Start 11/16/16 at 12:30 Lactobacillus Acidophilus (Florajen3 Capsule) 1 each TID PEG Last administered on 12/22/16 09:19; Admin Dose 1 EACH; Start 11/23/16 at 21:00 Calcium Carbonate (Tums) 500 mg TID PEG Last administered on 12/22/16 09:19; Admin Dose 500 MG; Start 11/23/16 at 21:00 Metoprolol Tartrate (Lopressor) 25 mg BID GTB Last administered on 12/22/16 09 :19; Admin Dose 25 MG; Start 11/23/16 at 21:00 Metoclopramide HCl (Reglan) 5 mg Q6 PEG Last administered on 12/22/16 06:15; Admin Dose 5 MG; Start 12/03/16 at 01:00 Aspirin (Aspirin) 81 mg MONWEDFRI GTB ; Start 12/09/16 at 09:00; Status Future Hold Clopidogrel Bisulfate (plaVIX) 75 mg MONWEDFRI GTB ; Start 12/09/16 at 09:00; Status Future Hold Lansoprazole (Prevacid) 30 mg DAILY@06 GTB Last administered on 12/22/16 06:15 ; Admin Dose 30 MG; Start 12/12/16 at 06:00 Fluconazole 100 mg 100 mg DAILY PO Last administered on 12/22/16 09:19; Admin Dose 100 MG; Start 12/13/16 at 12:00 Ertapenem/Sodium Chloride (Invanz/NS) 100 ml @ 200 mls/hr Q24H IVPB Last administered on 12/21/16 17:51; Admin Dose 200 MLS/HR; Start 12/18/16 at 16:00 Insulin Aspart (Novolog Insulin Pen) (Adult SC Insulin - Moder... Q4 SC Last administered on 12/22/16 09:26; Admin Dose 2 UNIT; Start 12/20/16 at 09:00 Insulin Glargine (Lantus) 36 unit DAILY@08 SC Last administered on 12/22/16 09 :24; Admin Dose 36 UNIT; Start 12/21/16 at 08:00 MAKAYLA JANE NP Dec 22, 2016 11:52
--- NOTE | 2016-12-22 14:19 | PN ---
Date/Time of Note Date/Time of Note DATE: 12/22/16 TIME: 14:12 Assessment/Plan Lines/Catheters IV Catheter Type (from Nrs): Saline Lock Rivas in Place (from Nrs): No Assessment/Plan Assessment/Plan [facility] Progress Note Date of Service: 12/22/16 Today's Impression & Plan: Overall has remained stable and slowly improving. No indication for acute surgical intervention. Abd remains benign. With above assessment, I've recommended the following for today: 1. Cont. with current management 2. Ok from my standpoint to transfer out of acute care setting to SNF with outpatient follow up with me in 3-4 weeks when OK by other MD's and providers Thank you again for your great care of this very pleasant patient and wonderful family. If there are any questions, please feel free to call me at [phone]. TOTAL VISIT TIME: 20 minutes of which more than half was spent in [id number] discussion with the patient, possibly including family, as well as coordination of care between multiple physicians and providers. Disclaimer: Inadvertent spelling or grammatical errors are likely due to EHR/ dictation software use and do not reflect on the overall quality of patient care. Updated Clinical Summary: A very pleasant 71-year-old lady with multiple comorbid issues including BMI of 35.6 as well as what has been in the hospital since 09/2016 being found unresponsive and multiple issues including congestive heart failure, acute renal failure due to acute tubular necrosis requiring dialysis, urinary tract infection with bacteremia and multiple other issues, who was found to have possible signs of acute cholecystitis on recent imaging. COMORBIDITIES: 1. BMI of 35.6. 2. Acute renal failure (ATN), on maintenance hemodialysis (Friday, , Friday). 3. Congestive heart failure. 4. Anemia. 5. Hypocalcemia. 6. Hypoalbuminemia and malnutrition. 7. Peripheral vascular disease with gangrene of toes of both feet. 8. Recent history of respiratory failure. 9. History of dysphagia requiring PEG placement and feedings. 10. Diabetes mellitus. 11. Leukocytosis from various sources. 12. Funguria with Erica glabrata and Erica albicans of the urine. 13. Escherichia coli and Enterococcus urinary tract infection 10/29/2016. 14. Escherichia coli bacteremia 12/02/2016 (x2 cultures). 15. Repeat culture of the urine 12/02/2016 with E. coli, enterococcus species and Klebsiella pneumoniae, extended-spectrum beta-lactamase. 16. Repeat bacteremia 12/08/2016 with Escherichia coli. 17. Urine positive for Erica albicans 12/11/2016. 18. Clostridium difficile colitis negative on a few stool samples. 19. Bilateral pleural effusions. 20. 2 mm calcified granuloma in the right lower lobe. 21. CT scan of abdomen and pelvis 12/13/2016 showing large amount of pericholecystic fluid with distention of the gallbladder, which could be of acute cholecystitis. 22. Tumefaction sludge, poorly visualized gallstones or soft tissue masses are suspected within the lumen of the distended gallbladder. 23. Anasarca. 24. Status post splenectomy. 25. A 2.8 cm left parapelvic cyst and an adjacent 1.4 cm simple cyst lateral upper portion of the lower third left kidney noted. 26. Atherosclerotic vascular disease. 27. Osteoarthritis of the thoracic and lumbosacral spine. 28. History of acute ST elevation myocardial infarction, inferior wall, status post code STEMI with stent placement, as well as temporary pacer wire. 29. Hyperlipidemia. 30. Possible aspiration pneumonia. 31. S/p CT-guided percutaneous transhepatic cholecystostomy drain placement 06/22, [facility] Subjective: No major events or complaints; no major abd pain; no n/v/d; no sob or cp; + flatus; + BM; minimal activity. No new issues. Being visited with and family. Objective: Vitals: See below Exam: GENERAL: On exam, the patient was laying in bed and appeared to be comfortable and in no acute distress. ABDOMEN: Soft, nontender and nondistended. There are no peritoneal signs or guarding. Perc GB drain with murky bilious output. SKIN: Skin appears to be pink and feels warm to touch. NEUROLOGIC: Patient is awake, alert, and follows commands appropriately. Exam/Review of Systems Vital Signs Vitals Vital Signs Date Time Temp Pulse Resp B/P Pulse Ox O2 Delivery O2 Flow Rate FiO2 12/22/16 08:30 79 18 95 21 12/22/16 08:13 98.9 105/51 12/19/16 14:00 Nasal Cannula 12/19/16 10:25 2.0 Intake and Output 12/21/16 12/21/16 12/22/16 15:00 23:00 07:00 Intake Total 700 ml 750 ml Output Total 10 ml 10 ml 10 ml Balance 690 ml 740 ml -10 ml Results Result Diagram: 12/20/16 0418 12/20/16 0418 SHANA ROSARIO M.D. Dec 22, 2016 14:19
[2016-12-22] MEDS: DEXTROSE 5%-0.45% NACL 1,000 ML IV SCH (15:39)
[2016-12-22] MEDS: ERTAPENEM SODIUM 0.5 GM in SOD CHLORIDE 0.9% 100 ML IVPB SCH (15:44)
[2016-12-22] MEDS: ONDANSETRON 4 MG INJ IV PRN (17:19)
--- NOTE | 2016-12-22 20:05 | RADRPT ---
PROCEDURE: US Abdomen (right upper quadrant). CLINICAL INDICATION: Right upper quadrant abdomen pain. History of cholecystostomy 12/16/2016. TECHNIQUE: Multiple real-time longitudinal and transverse images of the right upper quadrant of th e abdomen were acquired utilizing a curved array transducer. Images were reviewed on a high-resoluti on PACS workstation. COMPARISON: CT scan of the abdomen and pelvis dated 12/13/2016. FINDINGS: The liver is enlarged and diffusely increased in echogenicity consistent with fatty metamorphosis. There is no focal hepatic lesion. Color Doppler and pulsed Doppler sonography demonstrate normal a ntegrade flow in the portal vein. The cholecystostomy tube is present in the gallbladder. There is sludge in the gallbladder and there is gallbladder wall thickening. The bile ducts are normal with the common bile duct measuring 4.0 mm in diameter. The visualized portions of the pancreas are unremarkable with obscuration of the tail of the pancrea s. No free fluid is present. The right kidney is not visualized. IMPRESSION: 1. Hepatomegaly. Fatty metamorphosis of the liver. 2. Cholecystostomy tube in the gallbladder. Sludge in the gallbladder and gallbladder wall thicken ing. 3. Right kidney not visualized. RPTAT: QQ .Arnaldo Back MD, MD Date Time Electronically viewed and signed by .Arnaldo Back MD, on 12/22/2016 20:04 .R/
[2016-12-22] MEDS: DEXTROSE 50% 50 ML SYRINGE IV PRN (21:10)
[2016-12-22] MEDS: LATANOPROST 0.005% 2.5 ML OPH BOTH EYES SCH (21:15)
[2016-12-22 21:18] VITALS: BP 107/56; RESP 19
[2016-12-22] MEDS: ALPRAZOLAM 0.25 MG TAB NGT PRN (23:39)
--- NOTE | 2016-12-23 00:26 | PN ---
DATE: 12/22/2016 SUBJECTIVE: The patient is without complaint. OBJECTIVE: VITAL SIGNS: Temperature 98.2, pulse ____, respirations 19, blood pressure 107/56, oxygen saturatio n 97% on room air. GENERAL: Well-developed, well-nourished female, no acute distress, lying in bed. SKIN: Multiple nonblanching purpuric lesions, bilateral upper extremities. CHEST: Clear to auscultation bilaterally. HEART: Regular rate and rhythm. ABDOMEN: Soft, nontender. Decreased bowel sounds. EXTREMITIES: Trace edema. NEUROLOGIC: Nonfocal. LABORATORY DATA: White blood cell count last done 12/20 was 14.2, hemoglobin of 10.4, hematocrit of 33.8, platelets 155. ASSESSMENT AND PLAN: 1. End-stage renal disease. The patient on hemodialysis. Will continue with current 6-srxs-q-week dialysis. 2. Coronary artery disease/congestive heart failure/hypertension, remains stable. Continue with th e current medications and diet. 3. Diabetes, remains somewhat labile. Will continue with diet and medications. 4. Sepsis with cholangitis, status post cholecystotomy, stable. Continue with antibiotics. The pa william is to be transferred to SNF with followup with Dr. Hernandes within 3 to 4 weeks of discharge. 5. Dysphagia. Continue with PEG feedings. Dictated By: TOVA WRIGHT MD SR/NTS Conf#: [id number] DID#: [id number]
[2016-12-23] MEDS: INSULIN ASPART [NOVOLOG] 3 ML PEN SC SCH ×6 (00:43→21:00)
[2016-12-23] MEDS: GLUCAGON 1 MG INJ IM PRN (01:11)
[2016-12-23] MEDS: LEVALBUTEROL (NEB) 1.25 MG/0.5 ML AMP HHN SCH ×4 (01:30→20:02)
[2016-12-23] MEDS: IPRATROPIUM (NEB) 0.5 MG/2.5 ML AMP HHN SCH ×4 (01:30→20:02)
[2016-12-23] MEDS: LEVALBUTEROL (NEB) 1.25 MG/0.5 ML AMP HHN PRN ×3 (05:02→15:04)
[2016-12-23] MEDS: ACETYLCYSTEINE 20% 4 ML VIAL NEB PRN ×2 (05:02→11:49)
[2016-12-23] MEDS: METOCLOPRAMIDE 10 MG TAB PEG SCH ×3 (06:21→16:17)
[2016-12-23] MEDS: LANSOPRAZOLE 30 MG CAP GTB SCH (06:21)
[2016-12-23] MEDS: CREON (12k-38k-60k) 1 CAP NGT SCH ×3 (06:21→16:17)
--- NOTE | 2016-12-23 08:05 | PN ---
DATE: 12/22/2016 CHIEF COMPLAINT: Abdominal pain. SUBJECTIVE: The patient underwent a CT-guided drainage of the gallbladder distention, and at this t priti, the drainage has been going on for the past several days. Now the drainage is almost none. OBJECTIVE: On examination, the abdomen is soft and nontender. The vital signs show that temperatur e is 98.9, blood pressure 105/51, pulse is 79. The gallbladder drainage is almost nil. LABORATORY WORKUP: WBC count is 14,200, hemoglobin 10.4. The chemistry shows potassium 4.0. The l iver panel is normal except alkaline phosphatase 195 on the 14th of the month. CLINICAL IMPRESSION: Resolving cholecystitis with almost no drainage from the gallbladder drainage. PLAN: We will recommend to repeat ultrasound, and if the ultrasound of the abdomen is negative, the n the gallbladder drainage catheter could be removed. Also, please see the plan per Dr. Rosario. Dictated By: CIELO SANCHEZ MD NC/NTS Conf#: [id number] DID#: [id number] CC: SHANA ROSARIO MD;*EndCC*
[2016-12-23 08:07] VITALS: BP 132/62; RESP 20
[2016-12-23] MEDS: CALCIUM CARBONATE 500 MG CHEW TAB PEG SCH ×3 (09:04→21:08)
[2016-12-23] MEDS: ESCITALOPRAM 10 MG TAB GTB SCH (09:04)
[2016-12-23] MEDS: FLUCONAZOLE 100 MG TAB PO SCH (09:04)
[2016-12-23] MEDS: METOPROLOL 25 MG TAB GTB SCH ×2 (09:05→21:00)
[2016-12-23] MEDS: DORZOLAMIDE/TIMOLOL 10 ML OPH BOTH EYES SCH ×2 (09:06→21:06)
[2016-12-23] MEDS: ARTIFICIAL TEARS 15 ML OPH BOTH EYES SCH ×4 (09:07→21:05)
[2016-12-23] MEDS: INSULIN GLARGINE [LANtus] 3 ML PEN SC SCH (09:11)
[2016-12-23] MEDS: L ACIDOPHIL/B LACTIS/B LONGUM CAPSULE PEG SCH ×3 (09:19→21:08)
--- NOTE | 2016-12-23 09:59 | CONS ---
Date/Time of Note Date/Time of Note DATE: 12/23/16 TIME: 09:43 Assessment/Plan Assessment/Plan Chief Complaint/Hosp Course 1. Acute Renal Failure due to ATN . She is now on maintenance hemodialysis T T S . I will order hemodialysis for tomorrow. 2. ALOC , she continues to be very weak and lethargic . Her mental status is improving. 3. She has a cholecystostomy in the gallbladder draining dark fluid. 4. CHF , 5. hypocalcemia/hypoalbuminemia , calcium is higher 6. anemia , She has no active GI bleeding now and her hemoglobin and hematocrit are higher. 7. peripheral vascular disease .gangrene of toes of both feet . 8. respiratory failure , pulmonary function has improved . 9 dysphagia , she has a PEG . 10. discharge planning . She can be discharged to home or SNF , with outpatient dialysis . 11. DM , she is currently on tube feeding. It has been held earlier because of an ultrasound. The tube feeding has been resumed. We will continue current insulin dose and monitor Accu-Cheks with sliding scale insulin coverage. . Problems: Consultation Date/Type/Reason Admit Date/Time Sep 20, 2016 at 19:21 Initial Consult Date 09/23/16 Type of Consultation: renal Referring Provider: ZANDRA ROBISON [facility] Interval Summary Free Text/Dictation She is awake and alert today. She is conversant and responsive. She denies any pain. Constitutional: improved, no complaints Exam/Review of Systems Vital Signs Vitals Vital Signs Date Time Temp Pulse Resp B/P Pulse Ox O2 Delivery O2 Flow Rate FiO2 12/23/16 08:07 98.3 82 20 132/62 95 12/23/16 07:56 21 12/19/16 14:00 Nasal Cannula 12/19/16 10:25 2.0 Intake and Output 12/22/16 12/22/16 12/23/16 15:00 23:00 07:00 Intake Total 700 ml 950 ml 660 ml Output Total 5 ml 5 ml Balance 700 ml 945 ml 655 ml Exam Constitutional: alert, frail, obese, oriented Respiratory: clear to auscultation, diminished breath sounds Cardiovascular: regular rate and rhythm Gastrointestinal: non-tender, soft Musculoskeletal: nl extremities to inspection Results Result Diagram: 12/20/16 0418 12/20/16 0418 Results 24 hrs Laboratory Tests Test 12/22/16 13:00 12/22/16 17:23 12/22/16 21:02 12/22/16 21:51 Bedside Glucose 190 104 59 L 90 Test 12/22/16 22:16 12/23/16 00:29 12/23/16 01:02 12/23/16 01:39 Bedside Glucose 86 56 L 62 L 110 Test 12/23/16 02:03 12/23/16 05:28 12/23/16 08:58 Bedside Glucose 126 149 184 Medications Medications Current Medications Acetaminophen (Tylenol Liquid) 650 mg Q4H PRN NGT PAIN AND OR ELEVATED TEMP Last administered on 12/18/16 06:32; Admin Dose 650 MG; Start 09/21/16 at 02:00 IV Flush (NS 10 ml) 10 ml PRN PRN IV IV PROTOCOL Last administered on 12/12/16 21:49; Admin Dose 10 ML; Start 09/26/16 at 17:30 Lactulose (Enulose) 20 gm BID PRN PO CONSTIPATION Last administered on 05:34; Admin Dose 20 GM; Start 10/23/16 at 10:30 Amylase/Lipase/ Protease (CREON (12k-38k-60k)) 3 cap Q6 NGT Last administered on 12/23/16 06:21; Admin Dose 3 CAP; Start 10/29/16 at 13:00 Latanoprost (Xalatan) 1 drop HS BOTH EYES Last administered on 12/22/16 21:15 ; Admin Dose 1 DROP; Start 10/31/16 at 21:00 Dorzolamide/ Timolol (Cosopt) 1 drop BID BOTH EYES Last administered on 09:06; Admin Dose 1 DROP; Start 10/31/16 at 21:00 Glucagon (Glucagen) 1 mg Q15M PRN IM DECREASED GLUCOSE Last administered on 01:11; Admin Dose 1 MG; Start 11/03/16 at 18:00 Ondansetron HCl (Zofran Inj) 4 mg Q4H PRN IV NAUSEA AND/OR VOMITING Last administered on 12/22/16 17:19; Admin Dose 4 MG; Start 11/04/16 at 23:00 Eye Lubricant (Artificial Tears Oph) 2 drop QID BOTH EYES Last administered on 12/23/16 09:07; Admin Dose 2 DROP; Start 11/07/16 at 09:00 Morphine Sulfate (morphine) 1 mg Q3H PRN IV pain Last administered on 04:19; Admin Dose 1 MG; Start 11/10/16 at 08:00 Miscellaneous Information 1 ea NOTE XX ; Start 11/14/16 at 10:00 Glucose (Glutose) 15 gm Q15M PRN PO DECREASED GLUCOSE; Start 11/14/16 at 10:00 Glucose (Glutose) 22.5 gm Q15M PRN PO DECREASED GLUCOSE; Start 11/14/16 at 10: 00 Dextrose (D50w Syringe) 25 ml Q15M PRN IV DECREASED GLUCOSE Last administered on 12/22/16 21:10; Admin Dose 25 ML; Start 11/14/16 at 10:00 Dextrose (D50w Syringe) 50 ml Q15M PRN IV DECREASED GLUCOSE Last administered on 12/07/16 05:29; Admin Dose 50 ML; Start 11/14/16 at 10:00 Glucose (Glutose) 15 gm Q15M PRN BUCCAL DECREASED GLUCOSE Last administered on 12/23/16 00:39; Admin Dose 15 GM; Start 11/14/16 at 10:00 Escitalopram Oxalate (Lexapro) 10 mg DAILY GTB Last administered on 12/23/16 09:04; Admin Dose 10 MG; Start 11/16/16 at 12:30 Lactobacillus Acidophilus (Florajen3 Capsule) 1 each TID PEG Last administered on 12/23/16 09:19; Admin Dose 1 EACH; Start 11/23/16 at 21:00 Calcium Carbonate (Tums) 500 mg TID PEG Last administered on 12/23/16 09:04; Admin Dose 500 MG; Start 11/23/16 at 21:00 Metoprolol Tartrate (Lopressor) 25 mg BID GTB Last administered on 12/23/16 09 :05; Admin Dose 25 MG; Start 11/23/16 at 21:00 Metoclopramide HCl (Reglan) 5 mg Q6 PEG Last administered on 12/23/16 06:21; Admin Dose 5 MG; Start 12/03/16 at 01:00 Aspirin (Aspirin) 81 mg MONWEDFRI GTB ; Start 12/09/16 at 09:00; Status Future Hold Clopidogrel Bisulfate (plaVIX) 75 mg MONWEDFRI GTB ; Start 12/09/16 at 09:00; Status Future Hold Lansoprazole (Prevacid) 30 mg DAILY@06 GTB Last administered on 12/23/16 06:21 ; Admin Dose 30 MG; Start 12/12/16 at 06:00 Fluconazole 100 mg 100 mg DAILY PO Last administered on 12/23/16 09:04; Admin Dose 100 MG; Start 12/13/16 at 12:00 Ertapenem/Sodium Chloride (Invanz/NS) 100 ml @ 200 mls/hr Q24H IVPB Last administered on 12/22/16 15:44; Admin Dose 200 MLS/HR; Start 12/18/16 at 16:00 Insulin Aspart (Novolog Insulin Pen) (Adult SC Insulin - Moder... Q4 SC Last administered on 12/23/16 09:11; Admin Dose 4 UNIT; Start 12/20/16 at 09:00 Insulin Glargine (Lantus) 36 unit DAILY@08 SC Last administered on 12/23/16 09 :11; Admin Dose 36 UNIT; Start 12/21/16 at 08:00 Alprazolam 0.25 mg 0.25 mg QHS PRN NGT SLEEP Last administered on 12/22/16 23: 39; Admin Dose 0.25 MG; Start 12/22/16 at 14:30 Dextrose/Sodium Chloride (D5-1/2ns) 1,000 ml @ 50 mls/hr Q20H IV Last administered on 12/22/16 15:39; Admin Dose 50 MLS/HR; Start 12/22/16 at 15:30 DAMIR MARTINEZ MD Dec 23, 2016 09:59
[2016-12-23] MEDS: DEXTROSE 5%-0.45% NACL 1,000 ML IV SCH (10:47)
--- NOTE | 2016-12-23 13:03 | CONS ---
Date/Time of Note Date/Time of Note DATE: 12/23/16 TIME: 13:02 Assessment/Plan Assessment/Plan Chief Complaint/Hosp Course SUBJECTIVE: No acute changes overnight. No fevers. Alert, feels good, family at at bedside ANTIMICROBIALS: Invanz, Diflucan INDWELLINGS: RSC permacath, PEG, cholecystostomy drain PHYSICAL EXAMINATION: GENERAL: This is a chronically ill-appearing, elderly woman who is in no distress. HEENT: Head atraumatic, normocephalic. Sclerae anicteric. Buccal mucosa dry. NECK: Supple, trachea midline. CHEST: Rise symmetrical. Breath sounds diminished to bases. HEART: S1, S2. ABDOMEN: Soft, bowel sounds present. EXTREMITIES: Without cyanosis. ASSESSMENT: 1. S/p sepsis with E coli bacteremia, s/p PICC dc'd. 2. S/p polymicrobial urinary tract infection, repeat urine cx + C albicans. 3. End-stage renal disease, hemodialysis dependent. 4. 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 5. Dysphagia. 6. History of cardiopulmonary arrest. 7. Acute gangrenous cholecystitis, s/p IR drainage==> cx + E coli PLAN: Continues to improve, dc Diflucan, continue Invanz, f/u surgical rec-s [facility] staff Problems: Consultation Date/Type/Reason Admit Date/Time Sep 20, 2016 at 19:21 Initial Consult Date 09/23/16 Type of Consultation: ID Referring Provider: ZANDRA ROBISON MD, [facility] Exam/Review of Systems Vital Signs Vitals Vital Signs Date Time Temp Pulse Resp B/P Pulse Ox O2 Delivery O2 Flow Rate FiO2 12/23/16 11:49 75 16 98 21 12/23/16 08:07 98.3 132/62 12/19/16 14:00 Nasal Cannula 12/19/16 10:25 2.0 Intake and Output 12/22/16 12/22/16 12/23/16 15:00 23:00 07:00 Intake Total 700 ml 950 ml 660 ml Output Total 5 ml 5 ml Balance 700 ml 945 ml 655 ml Results Result Diagram: 12/20/16 0418 12/20/16 0418 Results 24 hrs Laboratory Tests Test 12/22/16 17:23 12/22/16 21:02 12/22/16 21:51 12/22/16 22:16 Bedside Glucose 104 59 L 90 86 Test 12/23/16 00:29 12/23/16 01:02 12/23/16 01:39 12/23/16 02:03 Bedside Glucose 56 L 62 L 110 126 Test 12/23/16 05:28 12/23/16 08:58 Bedside Glucose 149 184 Medications Medications Current Medications Acetaminophen (Tylenol Liquid) 650 mg Q4H PRN NGT PAIN AND OR ELEVATED TEMP Last administered on 12/18/16 06:32; Admin Dose 650 MG; Start 09/21/16 at 02:00 IV Flush (NS 10 ml) 10 ml PRN PRN IV IV PROTOCOL Last administered on 12/12/16 21:49; Admin Dose 10 ML; Start 09/26/16 at 17:30 Lactulose (Enulose) 20 gm BID PRN PO CONSTIPATION Last administered on 05:34; Admin Dose 20 GM; Start 10/23/16 at 10:30 Amylase/Lipase/ Protease (CREON (12k-38k-60k)) 3 cap Q6 NGT Last administered on 12/23/16 06:21; Admin Dose 3 CAP; Start 10/29/16 at 13:00 Latanoprost (Xalatan) 1 drop HS BOTH EYES Last administered on 12/22/16 21:15 ; Admin Dose 1 DROP; Start 10/31/16 at 21:00 Dorzolamide/ Timolol (Cosopt) 1 drop BID BOTH EYES Last administered on 09:06; Admin Dose 1 DROP; Start 10/31/16 at 21:00 Glucagon (Glucagen) 1 mg Q15M PRN IM DECREASED GLUCOSE Last administered on 01:11; Admin Dose 1 MG; Start 11/03/16 at 18:00 Ondansetron HCl (Zofran Inj) 4 mg Q4H PRN IV NAUSEA AND/OR VOMITING Last administered on 12/22/16 17:19; Admin Dose 4 MG; Start 11/04/16 at 23:00 Eye Lubricant (Artificial Tears Oph) 2 drop QID BOTH EYES Last administered on 12/23/16 09:07; Admin Dose 2 DROP; Start 11/07/16 at 09:00 Morphine Sulfate (morphine) 1 mg Q3H PRN IV pain Last administered on 04:19; Admin Dose 1 MG; Start 11/10/16 at 08:00 Miscellaneous Information 1 ea NOTE XX ; Start 11/14/16 at 10:00 Glucose (Glutose) 15 gm Q15M PRN PO DECREASED GLUCOSE; Start 11/14/16 at 10:00 Glucose (Glutose) 22.5 gm Q15M PRN PO DECREASED GLUCOSE; Start 11/14/16 at 10: 00 Dextrose (D50w Syringe) 25 ml Q15M PRN IV DECREASED GLUCOSE Last administered on 12/22/16 21:10; Admin Dose 25 ML; Start 11/14/16 at 10:00 Dextrose (D50w Syringe) 50 ml Q15M PRN IV DECREASED GLUCOSE Last administered on 12/07/16 05:29; Admin Dose 50 ML; Start 11/14/16 at 10:00 Glucose (Glutose) 15 gm Q15M PRN BUCCAL DECREASED GLUCOSE Last administered on 12/23/16 00:39; Admin Dose 15 GM; Start 11/14/16 at 10:00 Escitalopram Oxalate (Lexapro) 10 mg DAILY GTB Last administered on 12/23/16 09:04; Admin Dose 10 MG; Start 11/16/16 at 12:30 Lactobacillus Acidophilus (Florajen3 Capsule) 1 each TID PEG Last administered on 12/23/16 09:19; Admin Dose 1 EACH; Start 11/23/16 at 21:00 Calcium Carbonate (Tums) 500 mg TID PEG Last administered on 12/23/16 09:04; Admin Dose 500 MG; Start 11/23/16 at 21:00 Metoprolol Tartrate (Lopressor) 25 mg BID GTB Last administered on 12/23/16 09 :05; Admin Dose 25 MG; Start 11/23/16 at 21:00 Metoclopramide HCl (Reglan) 5 mg Q6 PEG Last administered on 12/23/16 06:21; Admin Dose 5 MG; Start 12/03/16 at 01:00 Aspirin (Aspirin) 81 mg MONWEDFRI GTB ; Start 12/09/16 at 09:00; Status Future Hold Clopidogrel Bisulfate (plaVIX) 75 mg MONWEDFRI GTB ; Start 12/09/16 at 09:00; Status Future Hold Lansoprazole (Prevacid) 30 mg DAILY@06 GTB Last administered on 12/23/16 06:21 ; Admin Dose 30 MG; Start 12/12/16 at 06:00 Fluconazole 100 mg 100 mg DAILY PO Last administered on 12/23/16 09:04; Admin Dose 100 MG; Start 12/13/16 at 12:00 Ertapenem/Sodium Chloride (Invanz/NS) 100 ml @ 200 mls/hr Q24H IVPB Last administered on 12/22/16 15:44; Admin Dose 200 MLS/HR; Start 12/18/16 at 16:00 Insulin Aspart (Novolog Insulin Pen) (Adult SC Insulin - Moder... Q4 SC Last administered on 12/23/16 09:11; Admin Dose 4 UNIT; Start 12/20/16 at 09:00 Insulin Glargine (Lantus) 36 unit DAILY@08 SC Last administered on 12/23/16 09 :11; Admin Dose 36 UNIT; Start 12/21/16 at 08:00 Alprazolam 0.25 mg 0.25 mg QHS PRN NGT SLEEP Last administered on 12/22/16 23: 39; Admin Dose 0.25 MG; Start 12/22/16 at 14:30 Dextrose/Sodium Chloride (D5-1/2ns) 1,000 ml @ 50 mls/hr Q20H IV Last administered on 12/22/16 15:39; Admin Dose 50 MLS/HR; Start 12/22/16 at 15:30 ROSALINA SIMS NP Dec 23, 2016 13:03
[2016-12-23] MEDS: morphine 2 MG INJ IV PRN (14:37)
[2016-12-23] MEDS: ERTAPENEM SODIUM 0.5 GM in SOD CHLORIDE 0.9% 100 ML IVPB SCH (15:57)
--- NOTE | 2016-12-23 17:37 | PN ---
Date/Time of Note Date/Time of Note DATE: 12/23/16 TIME: 17:36 Assessment/Plan Lines/Catheters IV Catheter Type (from Nrs): permacath Rivas in Place (from Nrs): No Assessment/Plan Assessment/Plan [facility] Progress Note Date of Service: 12/23/16 Today's Impression & Plan: Overall has remained stable and slowly improving. No indication for acute surgical intervention. Abd remains benign. With above assessment, I've recommended the following for today: 1. Cont. with current management 2. Ok from my standpoint to transfer out of acute care setting to SNF with outpatient follow up with me in 3-4 weeks when OK by other MD's and providers Thank you again for your great care of this very pleasant patient and wonderful family. If there are any questions, please feel free to call me at [phone]. TOTAL VISIT TIME: 20 minutes of which more than half was spent in [id number] discussion with the patient, possibly including family, as well as coordination of care between multiple physicians and providers. Disclaimer: Inadvertent spelling or grammatical errors are likely due to EHR/ dictation software use and do not reflect on the overall quality of patient care. Updated Clinical Summary: A very pleasant 71-year-old lady with multiple comorbid issues including BMI of 35.6 as well as what has been in the hospital since 09/2016 being found unresponsive and multiple issues including congestive heart failure, acute renal failure due to acute tubular necrosis requiring dialysis, urinary tract infection with bacteremia and multiple other issues, who was found to have possible signs of acute cholecystitis on recent imaging. COMORBIDITIES: 1. BMI of 35.6. 2. Acute renal failure (ATN), on maintenance hemodialysis (Friday, , Friday). 3. Congestive heart failure. 4. Anemia. 5. Hypocalcemia. 6. Hypoalbuminemia and malnutrition. 7. Peripheral vascular disease with gangrene of toes of both feet. 8. Recent history of respiratory failure. 9. History of dysphagia requiring PEG placement and feedings. 10. Diabetes mellitus. 11. Leukocytosis from various sources. 12. Funguria with Erica glabrata and Erica albicans of the urine. 13. Escherichia coli and Enterococcus urinary tract infection 10/29/2016. 14. Escherichia coli bacteremia 12/02/2016 (x2 cultures). 15. Repeat culture of the urine 12/02/2016 with E. coli, enterococcus species and Klebsiella pneumoniae, extended-spectrum beta-lactamase. 16. Repeat bacteremia 12/08/2016 with Escherichia coli. 17. Urine positive for Erica albicans 12/11/2016. 18. Clostridium difficile colitis negative on a few stool samples. 19. Bilateral pleural effusions. 20. 2 mm calcified granuloma in the right lower lobe. 21. CT scan of abdomen and pelvis 12/13/2016 showing large amount of pericholecystic fluid with distention of the gallbladder, which could be of acute cholecystitis. 22. Tumefaction sludge, poorly visualized gallstones or soft tissue masses are suspected within the lumen of the distended gallbladder. 23. Anasarca. 24. Status post splenectomy. 25. A 2.8 cm left parapelvic cyst and an adjacent 1.4 cm simple cyst lateral upper portion of the lower third left kidney noted. 26. Atherosclerotic vascular disease. 27. Osteoarthritis of the thoracic and lumbosacral spine. 28. History of acute ST elevation myocardial infarction, inferior wall, status post code STEMI with stent placement, as well as temporary pacer wire. 29. Hyperlipidemia. 30. Possible aspiration pneumonia. 31. S/p CT-guided percutaneous transhepatic cholecystostomy drain placement 06/22, [facility] Subjective: No major events or complaints reported; no reported major abd pain; no reported n/v/d; patient sound asleep and I did not wake her up Objective: Vitals: See below Exam: GENERAL: On exam, the patient was laying in bed and appeared to be comfortable and in no acute distress. Sound asleep. SKIN: Skin appears to be pink and feels warm to touch. NEUROLOGIC: Patient was sound asleep. Exam/Review of Systems Vital Signs Vitals Vital Signs Date Time Temp Pulse Resp B/P Pulse Ox O2 Delivery O2 Flow Rate FiO2 12/23/16 15:04 97 21 12/23/16 15:04 79 18 12/23/16 08:07 98.3 132/62 12/19/16 14:00 Nasal Cannula 12/19/16 10:25 2.0 Intake and Output 12/22/16 12/22/16 12/23/16 15:00 23:00 07:00 Intake Total 700 ml 950 ml 660 ml Output Total 5 ml 5 ml Balance 700 ml 945 ml 655 ml Results Result Diagram: 12/20/16 0418 12/20/16 0418 SHANA ROSARIO M.D. Dec 23, 2016 17:37
[2016-12-23 20:00] VITALS: BP 104/52; RESP 18
[2016-12-23] MEDS: LATANOPROST 0.005% 2.5 ML OPH BOTH EYES SCH (21:06)
[2016-12-23 21:10] VITALS: BP 94/50; PULSE 82; RESP 18
[2016-12-24] VITALS (12 sets, daily range): BP systolic 87–141; BP diastolic 44–82; PULSE 78–89; RESP 18–20
[2016-12-24] MEDS: CREON (12k-38k-60k) 1 CAP NGT SCH ×4 (00:44→18:00)
[2016-12-24] MEDS: METOCLOPRAMIDE 10 MG TAB PEG SCH ×4 (00:44→18:00)
[2016-12-24] MEDS: INSULIN ASPART [NOVOLOG] 3 ML PEN SC SCH ×6 (00:48→21:00)
[2016-12-24] MEDS: LEVALBUTEROL (NEB) 1.25 MG/0.5 ML AMP HHN SCH ×4 (02:00→20:51)
[2016-12-24] MEDS: IPRATROPIUM (NEB) 0.5 MG/2.5 ML AMP HHN SCH ×4 (02:00→20:51)
[2016-12-24] MEDS: LANSOPRAZOLE 30 MG CAP GTB SCH (05:29)
[2016-12-24] MEDS: GLUCAGON 1 MG INJ IM PRN (05:40)
[2016-12-24] MEDS: DEXTROSE 5%-0.45% NACL 1,000 ML IV SCH (06:36)
--- NOTE | 2016-12-24 08:11 | PN ---
Date/Time of Note Date/Time of Note DATE: 12/24/16 TIME: 08:08 Assessment/Plan Lines/Catheters IV Catheter Type (from Nrs): PermaCath Rivas in Place (from Nrs): No Assessment/Plan Assessment/Plan [facility] Progress Note Date of Service: 12/24/16 Today's Impression & Plan: Overall has remained stable and slowly improving. No indication for acute surgical intervention. Abd remains benign. Will discuss with IR (Dr. Back) re possible drain spot check. With above assessment, I've recommended the following for today: 1. Cont. with current management 2. Will discuss with IR (Dr. Back) re possible drain spot check. 3. Ok from my standpoint to transfer out of acute care setting to SNF with outpatient follow up with me in 3-4 weeks when OK by other MD's and providers Thank you again for your great care of this very pleasant patient and wonderful family. If there are any questions, please feel free to call me at [phone]. TOTAL VISIT TIME: 20 minutes of which more than half was spent in [id number] discussion with the patient, possibly including family, as well as coordination of care between multiple physicians and providers. Disclaimer: Inadvertent spelling or grammatical errors are likely due to EHR/ dictation software use and do not reflect on the overall quality of patient care. Updated Clinical Summary: A very pleasant 71-year-old lady with multiple comorbid issues including BMI of 35.6 as well as what has been in the hospital since 09/2016 being found unresponsive and multiple issues including congestive heart failure, acute renal failure due to acute tubular necrosis requiring dialysis, urinary tract infection with bacteremia and multiple other issues, who was found to have possible signs of acute cholecystitis on recent imaging. COMORBIDITIES: 1. BMI of 35.6. 2. Acute renal failure (ATN), on maintenance hemodialysis (Friday, , Friday). 3. Congestive heart failure. 4. Anemia. 5. Hypocalcemia. 6. Hypoalbuminemia and malnutrition. 7. Peripheral vascular disease with gangrene of toes of both feet. 8. Recent history of respiratory failure. 9. History of dysphagia requiring PEG placement and feedings. 10. Diabetes mellitus. 11. Leukocytosis from various sources. 12. Funguria with Erica glabrata and Erica albicans of the urine. 13. Escherichia coli and Enterococcus urinary tract infection 10/29/2016. 14. Escherichia coli bacteremia 12/02/2016 (x2 cultures). 15. Repeat culture of the urine 12/02/2016 with E. coli, enterococcus species and Klebsiella pneumoniae, extended-spectrum beta-lactamase. 16. Repeat bacteremia 12/08/2016 with Escherichia coli. 17. Urine positive for Erica albicans 12/11/2016. 18. Clostridium difficile colitis negative on a few stool samples. 19. Bilateral pleural effusions. 20. 2 mm calcified granuloma in the right lower lobe. 21. CT scan of abdomen and pelvis 12/13/2016 showing large amount of pericholecystic fluid with distention of the gallbladder, which could be of acute cholecystitis. 22. Tumefaction sludge, poorly visualized gallstones or soft tissue masses are suspected within the lumen of the distended gallbladder. 23. Anasarca. 24. Status post splenectomy. 25. A 2.8 cm left parapelvic cyst and an adjacent 1.4 cm simple cyst lateral upper portion of the lower third left kidney noted. 26. Atherosclerotic vascular disease. 27. Osteoarthritis of the thoracic and lumbosacral spine. 28. History of acute ST elevation myocardial infarction, inferior wall, status post code STEMI with stent placement, as well as temporary pacer wire. 29. Hyperlipidemia. 30. Possible aspiration pneumonia. 31. S/p CT-guided percutaneous transhepatic cholecystostomy drain placement 06/22, [facility] Subjective: No major events or complaints; no major abd pain; no n/v/d; no sob or cp; + flatus; + BM; minimal activity. No new issues. Being dialyzed. Objective: Vitals: See below Exam: GENERAL: On exam, the patient was laying in bed and appeared to be comfortable and in no acute distress. ABDOMEN: Soft, nontender and nondistended. There are no peritoneal signs or guarding. Perc GB drain with clear serous output. SKIN: Skin appears to be pink and feels warm to touch. NEUROLOGIC: Patient is awake, alert, and follows commands appropriately. Exam/Review of Systems Vital Signs Vitals Vital Signs Date Time Temp Pulse Resp B/P Pulse Ox O2 Delivery O2 Flow Rate FiO2 12/23/16 21:10 82 18 94/50 95 Room Air 12/23/16 20:04 21 12/23/16 20:00 98.9 Intake and Output 12/23/16 12/23/16 12/24/16 15:00 23:00 07:00 Intake Total 800 ml 11 ml Output Total 10 ml 4 ml Balance 790 ml 7 ml Results Result Diagram: 12/20/16 0418 12/20/16 0418 SHANA ROSARIO M.D. Dec 24, 2016 08:11
[2016-12-24] MEDS: L ACIDOPHIL/B LACTIS/B LONGUM CAPSULE PEG SCH ×3 (10:38→21:58)
[2016-12-24] MEDS: ESCITALOPRAM 10 MG TAB GTB SCH (10:38)
[2016-12-24] MEDS: CALCIUM CARBONATE 500 MG CHEW TAB PEG SCH ×3 (10:38→21:29)
[2016-12-24] MEDS: DORZOLAMIDE/TIMOLOL 10 ML OPH BOTH EYES SCH ×2 (10:39→21:29)
[2016-12-24] MEDS: ARTIFICIAL TEARS 15 ML OPH BOTH EYES SCH ×4 (10:39→21:31)
[2016-12-24] MEDS: METOPROLOL 25 MG TAB GTB SCH ×2 (10:41→21:30)
[2016-12-24] MEDS: INSULIN GLARGINE [LANtus] 3 ML PEN SC SCH (10:44)
--- NOTE | 2016-12-24 12:23 | PN ---
DATE: 12/24/2016 SUBJECTIVE: No acute changes. Patient is alert, lying comfortably in bed. Denies pain, no fevers. LABORATORIES: No CBC this morning, although I ordered it yesterday. INDWELLINGS: Right chest Perm-A-Cath, PEG, right-sided abdominal pigtail. ANTIMICROBIALS: The patient remains on Invanz, status post fluconazole. PHYSICAL EXAMINATION: GENERAL: Fragile, chronically ill-appearing, elderly woman who is awake, in no distress. HEENT: Head atraumatic, normocephalic. Sclerae anicteric. Buccal mucosa dry. NECK: Supple. CHEST: Rise symmetrical. Breath sounds diminished to bases. HEART: S1, S2. ABDOMEN: Soft. Bowel tones present. EXTREMITIES: With right lower extremity gangrenous changes of the toe. ASSESSMENT: 1. Status post sepsis. 2. Acute cholecystitis status post cholecystostomy drain placement on 12/16/2016 with abdominal flu id culture grew Escherichia coli. 3. Status post Escherichia coli bacteremia. 4. Status post urinary tract infection. 5. End-stage renal disease, hemodialysis dependent. 6. Bilateral lower extremities gangrene over the toes. 7. Dysphagia, status post percutaneous endoscopic gastrostomy. 8. History of cardiopulmonary arrest. PLAN: The patient remains stable. CBC was ordered today; however, not in the computer. She is cov ered with appropriate antimicrobials. SHE IS NOT ALLERGIC TO ANY ANTIBIOTICS. Dr. Hernandes is follow ing her and recommends drains spot check by interventional radiology. Dictated By: ROSALINA SIMS [employer]ALITY WORKER for [employer] Conf#: [id number] DID#: [id number]
--- NOTE | 2016-12-24 12:37 | PN ---
Date/Time of Note Date/Time of Note DATE: 12/20/16 TIME: 12:30 Assessment/Plan VTE Prophylaxis VTE Prophylaxis Intervention: other (hep w/ dialysis) Lines/Catheters IV Catheter Type (from Nrsg): PORTACATH Central line still needed: No Urinary Cath still in place: No Assessment/Plan Assessment/Plan 1. s/p uti/ bacteremia/ choley 2. arf/ anemia 3. dm 4. depression/ debility/ musc weak/ peg feed 5. pulm effusion 6. cad/ pad ---per ID/ surg, cont atbx ---per renal, dialysis ---cont all supportive cares Subjective 24 Hr Interval Summary Free Text/Dictation quiet, no complaints, flat affect+ Exam/Review of Systems Vital Signs Vitals Vital Signs Date Time Temp Pulse Resp B/P Pulse Ox O2 Delivery O2 Flow Rate FiO2 12/24/16 09:55 86 18 12/24/16 08:00 98.7 110/52 96 12/23/16 21:10 Room Air 12/23/16 20:04 21 Intake and Output 12/23/16 12/23/16 12/24/16 15:00 23:00 07:00 Intake Total 800 ml 11 ml Output Total 10 ml 4 ml Balance 790 ml 7 ml Results Result Diagram: 12/20/16 0418 12/20/16 0418 Results 24 hrs Laboratory Tests Test 12/23/16 12:55 12/23/16 16:15 12/23/16 21:03 12/24/16 00:47 Bedside Glucose 168 121 98 73 Test 12/24/16 05:33 12/24/16 05:34 12/24/16 06:01 12/24/16 06:15 Bedside Glucose 65 L 66 L 122 117 Test 12/24/16 10:36 Bedside Glucose 164 Medications Medications Current Medications Acetaminophen (Tylenol Liquid) 650 mg Q4H PRN NGT PAIN AND OR ELEVATED TEMP Last administered on 12/18/16 06:32; Admin Dose 650 MG; Start 09/21/16 at 02:00 IV Flush (NS 10 ml) 10 ml PRN PRN IV IV PROTOCOL Last administered on 12/12/16 21:49; Admin Dose 10 ML; Start 09/26/16 at 17:30 Lactulose (Enulose) 20 gm BID PRN PO CONSTIPATION Last administered on 05:34; Admin Dose 20 GM; Start 10/23/16 at 10:30 Amylase/Lipase/ Protease (CREON ([id number])) 3 cap Q6 NGT Last administered on 12/24/16 05:29; Admin Dose 3 CAP; Start 10/29/16 at 13:00 Latanoprost (Xalatan) 1 drop HS BOTH EYES Last administered on 12/23/16 21:06 ; Admin Dose 1 DROP; Start 10/31/16 at 21:00 Dorzolamide/ Timolol (Cosopt) 1 drop BID BOTH EYES Last administered on 10:39; Admin Dose 1 DROP; Start 10/31/16 at 21:00 Glucagon (Glucagen) 1 mg Q15M PRN IM DECREASED GLUCOSE Last administered on 05:40; Admin Dose 1 MG; Start 11/03/16 at 18:00 Ondansetron HCl (Zofran Inj) 4 mg Q4H PRN IV NAUSEA AND/OR VOMITING Last administered on 12/22/16 17:19; Admin Dose 4 MG; Start 11/04/16 at 23:00 Eye Lubricant (Artificial Tears Oph) 2 drop QID BOTH EYES Last administered on 12/24/16 10:39; Admin Dose 2 DROP; Start 11/07/16 at 09:00 Morphine Sulfate (morphine) 1 mg Q3H PRN IV pain Last administered on 14:37; Admin Dose 1 MG; Start 11/10/16 at 08:00 Miscellaneous Information 1 ea NOTE XX ; Start 11/14/16 at 10:00 Glucose (Glutose) 15 gm Q15M PRN PO DECREASED GLUCOSE; Start 11/14/16 at 10:00 Glucose (Glutose) 22.5 gm Q15M PRN PO DECREASED GLUCOSE; Start 11/14/16 at 10: 00 Dextrose (D50w Syringe) 25 ml Q15M PRN IV DECREASED GLUCOSE Last administered on 12/22/16 21:10; Admin Dose 25 ML; Start 11/14/16 at 10:00 Dextrose (D50w Syringe) 50 ml Q15M PRN IV DECREASED GLUCOSE Last administered on 12/07/16 05:29; Admin Dose 50 ML; Start 11/14/16 at 10:00 Glucose (Glutose) 15 gm Q15M PRN BUCCAL DECREASED GLUCOSE Last administered on 12/23/16 00:39; Admin Dose 15 GM; Start 11/14/16 at 10:00 Escitalopram Oxalate (Lexapro) 10 mg DAILY GTB Last administered on 12/24/16 10:38; Admin Dose 10 MG; Start 11/16/16 at 12:30 Lactobacillus Acidophilus (Florajen3 Capsule) 1 each TID PEG Last administered on 12/24/16 10:38; Admin Dose 1 EACH; Start 11/23/16 at 21:00 Calcium Carbonate (Tums) 500 mg TID PEG Last administered on 12/24/16 10:38; Admin Dose 500 MG; Start 11/23/16 at 21:00 Metoprolol Tartrate (Lopressor) 25 mg BID GTB Last administered on 12/24/16 10 :41; Admin Dose 25 MG; Start 11/23/16 at 21:00 Metoclopramide HCl (Reglan) 5 mg Q6 PEG Last administered on 12/24/16 05:29; Admin Dose 5 MG; Start 12/03/16 at 01:00 Aspirin (Aspirin) 81 mg MONWEDFRI GTB ; Start 12/09/16 at 09:00; Status Future Hold Clopidogrel Bisulfate (plaVIX) 75 mg MONWEDFRI GTB ; Start 12/09/16 at 09:00; Status Future Hold Lansoprazole 30 mg 30 mg DAILY@06 GTB Last administered on 12/24/16 05:29; Admin Dose 30 MG; Start 12/12/16 at 06:00 Ertapenem/Sodium Chloride (Invanz/NS) 100 ml @ 200 mls/hr Q24H IVPB Last administered on 12/23/16 15:57; Admin Dose 200 MLS/HR; Start 12/18/16 at 16:00 Insulin Aspart (Novolog Insulin Pen) (Adult SC Insulin - Moder... Q4 SC Last administered on 12/24/16 10:44; Admin Dose 2 UNIT; Start 12/20/16 at 09:00 Insulin Glargine (Lantus) 36 unit DAILY@08 SC Last administered on 12/24/16 10 :44; Admin Dose 36 UNIT; Start 12/21/16 at 08:00 Alprazolam 0.25 mg 0.25 mg QHS PRN NGT SLEEP Last administered on 12/22/16 23: 39; Admin Dose 0.25 MG; Start 12/22/16 at 14:30 Dextrose/Sodium Chloride (D5-1/2ns) 1,000 ml @ 50 mls/hr Q20H IV Last administered on 12/22/16 15:39; Admin Dose 50 MLS/HR; Start 12/22/16 at 15:30 SHAMA LOPEZ MD Dec 24, 2016 12:37
--- NOTE | 2016-12-24 13:23 | PN ---
Date/Time of Note Date/Time of Note DATE: 12/23/16 TIME: 13:18 Assessment/Plan VTE Prophylaxis VTE Prophylaxis Intervention: other (hep w/ dialysis) Lines/Catheters IV Catheter Type (from Nrsg): PORTACATH Central line still needed: No Urinary Cath still in place: No Assessment/Plan Assessment/Plan 1. s/p choley/ bacteremia/ uti 2. arf/ anemia--dialysis 3. dm 4. cad/ pad 5. debility--musc weak/ peg feed 6. pulm effusion ---per ID, surg--cont atbx ---per renal--dialysis ---cont all supportive cares ---plan for snf transfer this week Subjective 24 Hr Interval Summary Free Text/Dictation flat affect+, refused ot/pt exercise, no complaints SHAMA LOPEZ MD Dec 24, 2016 13:23
--- NOTE | 2016-12-24 13:35 | PN ---
Date/Time of Note Date/Time of Note DATE: 12/24/16 TIME: 13:24 Assessment/Plan VTE Prophylaxis VTE Prophylaxis Intervention: other (hep w/ dialysis) Lines/Catheters IV Catheter Type (from Nrsg): PORTACATH Central line still needed: No Urinary Cath still in place: No Assessment/Plan Assessment/Plan 1. s/p choley/ bacteremia/ uti--on atbx 2. arf/ anemia--dialysis 3. dm 4. depression/ debility/ musc weak/ peg feed 5. cad/ pad 6. pulm effusion ---ID/ surg/ renal have agreed pt's stable enough to be transferred to snf for further care ---pulm/ cards/ vasc surg signed out ---will speak w/ family ---transfer pt via ambulance to snf tomorrow with all of current meds/ cares Subjective 24 Hr Interval Summary Free Text/Dictation no complaint, flat affect Exam/Review of Systems Vital Signs Vitals Vital Signs Date Time Temp Pulse Resp B/P Pulse Ox O2 Delivery O2 Flow Rate FiO2 12/24/16 09:55 86 18 12/24/16 08:00 98.7 110/52 96 12/23/16 21:10 Room Air 12/23/16 20:04 21 Intake and Output 12/23/16 12/23/16 12/24/16 15:00 23:00 07:00 Intake Total 800 ml 11 ml Output Total 10 ml 4 ml Balance 790 ml 7 ml Exam in bed, obese, limited motivation toes blue black+, buttock area wide grade #1 stasis ulcer+ shallow breathing, dec bs rr peg tube site clean & dry Results Result Diagram: 12/20/16 0418 12/20/16 0418 Results 24 hrs Laboratory Tests Test 12/23/16 16:15 12/23/16 21:03 12/24/16 00:47 12/24/16 05:33 Bedside Glucose 121 98 73 65 L Test 12/24/16 05:34 12/24/16 06:01 12/24/16 06:15 12/24/16 10:36 Bedside Glucose 66 L 122 117 164 Medications Medications Current Medications Acetaminophen (Tylenol Liquid) 650 mg Q4H PRN NGT PAIN AND OR ELEVATED TEMP Last administered on 12/18/16t 06:32; Admin Dose 650 MG; Start 09/21/16 at 02:00 IV Flush (NS 10 ml) 10 ml PRN PRN IV IV PROTOCOL Last administered on 12/12/16 21:49; Admin Dose 10 ML; Start 09/26/16 at 17:30 Lactulose (Enulose) 20 gm BID PRN PO CONSTIPATION Last administered on 05:34; Admin Dose 20 GM; Start 10/23/16 at 10:30 Amylase/Lipase/ Protease (CREON ([id number])) 3 cap Q6 NGT Last administered on 12/24/16 05:29; Admin Dose 3 CAP; Start 10/29/16 at 13:00 Latanoprost (Xalatan) 1 drop HS BOTH EYES Last administered on 12/23/16 21:06 ; Admin Dose 1 DROP; Start 10/31/16 at 21:00 Dorzolamide/ Timolol (Cosopt) 1 drop BID BOTH EYES Last administered on 10:39; Admin Dose 1 DROP; Start 10/31/16 at 21:00 Glucagon (Glucagen) 1 mg Q15M PRN IM DECREASED GLUCOSE Last administered on 05:40; Admin Dose 1 MG; Start 11/03/16 at 18:00 Ondansetron HCl (Zofran Inj) 4 mg Q4H PRN IV NAUSEA AND/OR VOMITING Last administered on 12/22/16 17:19; Admin Dose 4 MG; Start 11/04/16 at 23:00 Eye Lubricant (Artificial Tears Oph) 2 drop QID BOTH EYES Last administered on 12/24/16 10:39; Admin Dose 2 DROP; Start 11/07/16 at 09:00 Morphine Sulfate (morphine) 1 mg Q3H PRN IV pain Last administered on 14:37; Admin Dose 1 MG; Start 11/10/16 at 08:00 Miscellaneous Information 1 ea NOTE XX ; Start 11/14/16 at 10:00 Glucose (Glutose) 15 gm Q15M PRN PO DECREASED GLUCOSE; Start 11/14/16 at 10:00 Glucose (Glutose) 22.5 gm Q15M PRN PO DECREASED GLUCOSE; Start 11/14/16 at 10: 00 Dextrose (D50w Syringe) 25 ml Q15M PRN IV DECREASED GLUCOSE Last administered on 12/22/16 21:10; Admin Dose 25 ML; Start 11/14/16 at 10:00 Dextrose (D50w Syringe) 50 ml Q15M PRN IV DECREASED GLUCOSE Last administered on 12/07/16 05:29; Admin Dose 50 ML; Start 11/14/16 at 10:00 Glucose (Glutose) 15 gm Q15M PRN BUCCAL DECREASED GLUCOSE Last administered on 12/23/16 00:39; Admin Dose 15 GM; Start 11/14/16 at 10:00 Escitalopram Oxalate (Lexapro) 10 mg DAILY GTB Last administered on 12/24/16 10:38; Admin Dose 10 MG; Start 11/16/16 at 12:30 Lactobacillus Acidophilus (Florajen3 Capsule) 1 each TID PEG Last administered on 12/24/16 10:38; Admin Dose 1 EACH; Start 11/23/16 at 21:00 Calcium Carbonate (Tums) 500 mg TID PEG Last administered on 12/24/16 10:38; Admin Dose 500 MG; Start 11/23/16 at 21:00 Metoprolol Tartrate (Lopressor) 25 mg BID GTB Last administered on 12/24/16 10 :41; Admin Dose 25 MG; Start 11/23/16 at 21:00 Metoclopramide HCl (Reglan) 5 mg Q6 PEG Last administered on 12/24/16 05:29; Admin Dose 5 MG; Start 12/03/16 at 01:00 Aspirin (Aspirin) 81 mg MONWEDFRI GTB ; Start 12/09/16 at 09:00; Status Future Hold Clopidogrel Bisulfate (plaVIX) 75 mg MONWEDFRI GTB ; Start 12/09/16 at 09:00; Status Future Hold Lansoprazole 30 mg 30 mg DAILY@06 GTB Last administered on 12/24/16 05:29; Admin Dose 30 MG; Start 12/12/16 at 06:00 Ertapenem/Sodium Chloride (Invanz/NS) 100 ml @ 200 mls/hr Q24H IVPB Last administered on 12/23/16 15:57; Admin Dose 200 MLS/HR; Start 12/18/16 at 16:00 Insulin Aspart (Novolog Insulin Pen) (Adult SC Insulin - Moder... Q4 SC Last administered on 12/24/16 10:44; Admin Dose 2 UNIT; Start 12/20/16 at 09:00 Insulin Glargine (Lantus) 36 unit DAILY@08 SC Last administered on 12/24/16 10 :44; Admin Dose 36 UNIT; Start 12/21/16 at 08:00 Alprazolam 0.25 mg 0.25 mg QHS PRN NGT SLEEP Last administered on 12/22/16 23: 39; Admin Dose 0.25 MG; Start 12/22/16 at 14:30 Dextrose/Sodium Chloride (D5-1/2ns) 1,000 ml @ 50 mls/hr Q20H IV Last administered on 12/22/16 15:39; Admin Dose 50 MLS/HR; Start 12/22/16 at 15:30 SHAMA LOPEZ MD Dec 24, 2016 13:35
[2016-12-24 13:39] LABS: ADD SCAN DIFF NO
[2016-12-24 13:41] LABS: BASOPHIL # 0.1 10^3/ul (0.0-0.1); BASOPHILS % 0.4 % (0.0-2.0); EOSINOPHILS # 0.2 10^3/ul (0.0-0.5); EOSINOPHILS % 1.1 % (0.0-7.0); HEMOGLOBIN 10.8 g/dl (12.0-16.0); LYMPHOCYTES # 1.4 10^3/ul (0.8-2.9); LYMPHOCYTES % 10.2 % (15.0-51.0); MEAN CORPUSCULAR HEMOGLOBIN 27.7 pg (29.0-33.0); MEAN CORPUSCULAR HGB CONC 30.9 g/dl (32.0-37.0); MEAN CORPUSCULAR VOLUME 89.7 fl (82.0-101.0); MONOCYTE # 1.4 10^3/ul (0.3-0.9); MONOCYTES % 10.8 % (0.0-11.0); NEUTROPHILS % 75.7 % (39.0-77.0); PLATELET COUNT 135 10^3/UL (140-415); RED CELL DISTRIBUTION WIDTH 17.6 % (11.5-14.5); WHITE BLOOD COUNT 13.2 10^3/ul (4.8-10.8)
--- NOTE | 2016-12-24 13:59 | CONS ---
Date/Time of Note Date/Time of Note DATE: 12/24/16 TIME: 13:56 Assessment/Plan Assessment/Plan Chief Complaint/Hosp Course 1. Acute Renal Failure due to ATN . She is now on maintenance hemodialysis T T S . She had her routine hemodialysis treatment today and 2 L of fluid were removed. 2. ALOC , she continues to be very weak and lethargic . Her mental status is improving slowly 3. She has a cholecystostomy in the gallbladder draining dark fluid. 4. CHF , 5. hypocalcemia/hypoalbuminemia , calcium is higher 6. anemia , She has no active GI bleeding now and her hemoglobin and hematocrit are higher. 7. peripheral vascular disease .gangrene of toes of both feet . 8. respiratory failure , pulmonary function has improved . 9 dysphagia , she has a PEG and is tolerating the tube feeding. The tube feeding will be increased to 60 cc/h. 10. discharge planning . She can be discharged to SNF , with outpatient dialysis . I will follow patient in the dialysis unit. 11. DM , she is currently on tube feeding. The tube feeding has been resumed. We will continue current insulin dose and monitor Accu-Cheks with sliding scale insulin coverage. . Problems: Consultation Date/Type/Reason Admit Date/Time Sep 20, 2016 at 19:21 Initial Consult Date 09/23/16 Type of Consultation: ID Referring Provider: ZANDRA ROBISON MD, [facility] 24 HR Interval Summary Free Text/Dictation She is sleeping but arouses easily to verbal stimuli. She did have hemodialysis this morning and 2 L of fluid were removed. Constitutional: no complaints Exam/Review of Systems Vital Signs Vitals Vital Signs Date Time Temp Pulse Resp B/P Pulse Ox O2 Delivery O2 Flow Rate FiO2 12/24/16 09:55 86 18 12/24/16 08:00 98.7 110/52 96 12/23/16 21:10 Room Air 12/23/16 20:04 21 Intake and Output 12/23/16 12/23/16 12/24/16 15:00 23:00 07:00 Intake Total 800 ml 11 ml Output Total 10 ml 4 ml Balance 790 ml 7 ml Exam Constitutional: alert, oriented Respiratory: clear to auscultation, normal air movement Cardiovascular: regular rate and rhythm Gastrointestinal: soft Musculoskeletal: nl extremities to inspection Results Result Diagram: 12/20/16 0418 12/20/16 0418 Results 24 hrs Laboratory Tests Test 12/23/16 16:15 12/23/16 21:03 12/24/16 00:47 12/24/16 05:33 Bedside Glucose 121 98 73 65 L Test 12/24/16 05:34 12/24/16 06:01 12/24/16 06:15 12/24/16 10:36 Bedside Glucose 66 L 122 117 164 Medications Medications Current Medications Acetaminophen (Tylenol Liquid) 650 mg Q4H PRN NGT PAIN AND OR ELEVATED TEMP Last administered on 12/18/16 06:32; Admin Dose 650 MG; Start 09/21/16 at 02:00 IV Flush (NS 10 ml) 10 ml PRN PRN IV IV PROTOCOL Last administered on 12/12/16 21:49; Admin Dose 10 ML; Start 09/26/16 at 17:30 Lactulose (Enulose) 20 gm BID PRN PO CONSTIPATION Last administered on 05:34; Admin Dose 20 GM; Start 10/23/16 at 10:30 Amylase/Lipase/ Protease (CREON ([id number])) 3 cap Q6 NGT Last administered on 12/24/16 05:29; Admin Dose 3 CAP; Start 10/29/16 at 13:00 Latanoprost (Xalatan) 1 drop HS BOTH EYES Last administered on 12/23/16 21:06 ; Admin Dose 1 DROP; Start 10/31/16 at 21:00 Dorzolamide/ Timolol (Cosopt) 1 drop BID BOTH EYES Last administered on 10:39; Admin Dose 1 DROP; Start 10/31/16 at 21:00 Glucagon (Glucagen) 1 mg Q15M PRN IM DECREASED GLUCOSE Last administered on 05:40; Admin Dose 1 MG; Start 11/03/16 at 18:00 Ondansetron HCl (Zofran Inj) 4 mg Q4H PRN IV NAUSEA AND/OR VOMITING Last administered on 12/22/16 17:19; Admin Dose 4 MG; Start 11/04/16 at 23:00 Eye Lubricant (Artificial Tears Oph) 2 drop QID BOTH EYES Last administered on 12/24/16 13:19; Admin Dose 2 DROP; Start 11/07/16 at 09:00 Morphine Sulfate (morphine) 1 mg Q3H PRN IV pain Last administered on 14:37; Admin Dose 1 MG; Start 11/10/16 at 08:00 Miscellaneous Information 1 ea NOTE XX ; Start 11/14/16 at 10:00 Glucose (Glutose) 15 gm Q15M PRN PO DECREASED GLUCOSE; Start 11/14/16 at 10:00 Glucose (Glutose) 22.5 gm Q15M PRN PO DECREASED GLUCOSE; Start 11/14/16 at 10: 00 Dextrose (D50w Syringe) 25 ml Q15M PRN IV DECREASED GLUCOSE Last administered on 12/22/16 21:10; Admin Dose 25 ML; Start 11/14/16 at 10:00 Dextrose (D50w Syringe) 50 ml Q15M PRN IV DECREASED GLUCOSE Last administered on 12/07/16 05:29; Admin Dose 50 ML; Start 11/14/16 at 10:00 Glucose (Glutose) 15 gm Q15M PRN BUCCAL DECREASED GLUCOSE Last administered on 12/23/16 00:39; Admin Dose 15 GM; Start 11/14/16 at 10:00 Escitalopram Oxalate (Lexapro) 10 mg DAILY GTB Last administered on 12/24/16 10:38; Admin Dose 10 MG; Start 11/16/16 at 12:30 Lactobacillus Acidophilus (Florajen3 Capsule) 1 each TID PEG Last administered on 12/24/16 13:19; Admin Dose 1 EACH; Start 11/23/16 at 21:00 Calcium Carbonate (Tums) 500 mg TID PEG Last administered on 12/24/16 13:19; Admin Dose 500 MG; Start 11/23/16 at 21:00 Metoprolol Tartrate (Lopressor) 25 mg BID GTB Last administered on 12/24/16 10 :41; Admin Dose 25 MG; Start 11/23/16 at 21:00 Metoclopramide HCl (Reglan) 5 mg Q6 PEG Last administered on 12/24/16 13:19; Admin Dose 5 MG; Start 12/03/16 at 01:00 Aspirin (Aspirin) 81 mg MONWEDFRI GTB ; Start 12/09/16 at 09:00; Status Future Hold Clopidogrel Bisulfate (plaVIX) 75 mg MONWEDFRI GTB ; Start 12/09/16 at 09:00; Status Future Hold Lansoprazole 30 mg 30 mg DAILY@06 GTB Last administered on 12/24/16 05:29; Admin Dose 30 MG; Start 12/12/16 at 06:00 Ertapenem/Sodium Chloride (Invanz/NS) 100 ml @ 200 mls/hr Q24H IVPB Last administered on 12/23/16 15:57; Admin Dose 200 MLS/HR; Start 12/18/16 at 16:00 Insulin Aspart (Novolog Insulin Pen) (Adult SC Insulin - Moder... Q4 SC Last administered on 12/24/16 10:44; Admin Dose 2 UNIT; Start 12/20/16 at 09:00 Insulin Glargine (Lantus) 36 unit DAILY@08 SC Last administered on 12/24/16 10 :44; Admin Dose 36 UNIT; Start 12/21/16 at 08:00 Alprazolam 0.25 mg 0.25 mg QHS PRN NGT SLEEP Last administered on 12/22/16 23: 39; Admin Dose 0.25 MG; Start 12/22/16 at 14:30 Dextrose/Sodium Chloride (D5-1/2ns) 1,000 ml @ 50 mls/hr Q20H IV Last administered on 12/22/16 15:39; Admin Dose 50 MLS/HR; Start 12/22/16 at 15:30 DAMIR MARTINEZ MD Dec 24, 2016 13:59
[2016-12-24] MEDS: ONDANSETRON 4 MG INJ IV PRN (15:26)
[2016-12-24] MEDS: ERTAPENEM SODIUM 0.5 GM in SOD CHLORIDE 0.9% 100 ML IVPB SCH (16:00)
[2016-12-24] MEDS: morphine 2 MG INJ IV PRN (19:12)
[2016-12-24] MEDS: ALPRAZOLAM 0.25 MG TAB NGT PRN (21:29)
[2016-12-24] MEDS: LATANOPROST 0.005% 2.5 ML OPH BOTH EYES SCH (21:58)
[2016-12-25] MEDS: METOCLOPRAMIDE 10 MG TAB PEG SCH ×2 (00:55→06:08)
[2016-12-25] MEDS: INSULIN ASPART [NOVOLOG] 3 ML PEN SC SCH ×3 (01:00→08:51)
[2016-12-25] MEDS: CREON (12k-38k-60k) 1 CAP NGT SCH ×2 (01:19→05:58)
[2016-12-25] MEDS: LEVALBUTEROL (NEB) 1.25 MG/0.5 ML AMP HHN SCH ×2 (01:51→09:47)
[2016-12-25] MEDS: IPRATROPIUM (NEB) 0.5 MG/2.5 ML AMP HHN SCH ×2 (01:51→09:46)
[2016-12-25] MEDS: DEXTROSE 5%-0.45% NACL 1,000 ML IV SCH (03:33)
[2016-12-25] MEDS: LANSOPRAZOLE 30 MG CAP GTB SCH (05:58)
[2016-12-25 06:03] LABS: ADD SCAN DIFF NO
[2016-12-25 06:22] LABS: ABNORMAL IP MESSAGE 1; BASOPHIL # 0.1 10^3/ul (0.0-0.1); BASOPHILS % 0.5 % (0.0-2.0); EOSINOPHILS # 0.3 10^3/ul (0.0-0.5); EOSINOPHILS % 2.3 % (0.0-7.0); HEMATOCRIT 32.9 % (37.0-47.0); HEMOGLOBIN 9.9 g/dl (12.0-16.0); LYMPHOCYTES # 1.5 10^3/ul (0.8-2.9); LYMPHOCYTES % 13.3 % (15.0-51.0); MEAN CORPUSCULAR HEMOGLOBIN 27.6 pg (29.0-33.0); MEAN CORPUSCULAR HGB CONC 30.1 g/dl (32.0-37.0); MEAN CORPUSCULAR VOLUME 91.6 fl (82.0-101.0); MEAN PLATELET VOLUME 10.3 fl (7.4-10.4); MONOCYTE # 1.8 10^3/ul (0.3-0.9); NEUTROPHIL # 7.3 10^3/ul (1.6-7.5); NEUTROPHILS % 66.1 % (39.0-77.0); PLATELET COUNT 183 10^3/UL (140-415); RED BLOOD COUNT 3.59 10^6/ul (4.20-5.40); RED CELL DISTRIBUTION WIDTH 17.2 % (11.5-14.5)
[2016-12-25 06:55] LABS: ALBUMIN 2.7 g/dl (3.3-4.9); ALBUMIN/GLOBULIN RATIO 0.87; CALCIUM 8.4 mg/dl (8.4-10.2); CREATININE 1.7 mg/dl (0.44-1.00); POTASSIUM 4.8 mmol/L (3.5-5.1); TOTAL PROTEIN 5.8 g/dl (6.1-8.1)
[2016-12-25 07:27] VITALS: BP 103/52; RESP 19
[2016-12-25] MEDS: L ACIDOPHIL/B LACTIS/B LONGUM CAPSULE PEG SCH (08:41)
[2016-12-25] MEDS: CALCIUM CARBONATE 500 MG CHEW TAB PEG SCH (08:41)
[2016-12-25] MEDS: ESCITALOPRAM 10 MG TAB GTB SCH (08:41)
[2016-12-25] MEDS: INSULIN GLARGINE [LANtus] 3 ML PEN SC SCH (08:47)
[2016-12-25] MEDS: ARTIFICIAL TEARS 15 ML OPH BOTH EYES SCH (08:48)
[2016-12-25] MEDS: DORZOLAMIDE/TIMOLOL 10 ML OPH BOTH EYES SCH (08:49)
--- NOTE | 2016-12-25 08:51 | CONS ---
Date/Time of Note Date/Time of Note DATE: 12/25/16 TIME: 08:46 Assessment/Plan Assessment/Plan Chief Complaint/Hosp Course 1. Acute Renal Failure due to ATN . She is now on maintenance hemodialysis T T S . If transferred today she will start outpatient dialysis tomorrow . I will follow her in the dialysis unit . 2. ALOC , she continues to be very weak and lethargic . Her mental status is improving slowly 3. She has a cholecystostomy in the gallbladder draining dark fluid. 4. CHF , 5. hypocalcemia/hypoalbuminemia , calcium is higher 6. anemia , She has no active GI bleeding now and her hemoglobin and hematocrit are higher. 7. peripheral vascular disease .gangrene of toes of both feet . 8. respiratory failure , pulmonary function has improved . 9 dysphagia , she has a PEG and is tolerating the tube feeding. The tube feeding will be increased to 60 cc/h. 10. discharge planning . She can be discharged to SNF , with outpatient dialysis . I will follow patient in the dialysis unit. 11. DM , she is currently on tube feeding. The tube feeding has been resumed. We will continue current insulin dose and monitor Accu-Cheks with sliding scale insulin coverage. . Problems: Consultation Date/Type/Reason Admit Date/Time Sep 20, 2016 at 19:21 Initial Consult Date 09/23/16 Type of Consultation: ID Referring Provider: ZANDRA ROBISON MD, [facility] 24 HR Interval Summary Free Text/Dictation Patient is awake and alert . She is being prepared to be transferred to SNF today . Constitutional: no complaints Exam/Review of Systems Vital Signs Vitals Vital Signs Date Time Temp Pulse Resp B/P Pulse Ox O2 Delivery O2 Flow Rate FiO2 12/25/16 07:27 98.5 81 19 103/52 99 12/24/16 21:30 Room Air 12/24/16 20:52 21 Intake and Output 12/24/16 12/24/16 12/25/16 15:00 23:00 07:00 Intake Total 500 ml 0 ml 100 ml Output Total 2500 ml 2 ml 2 ml Balance -2000 ml -2 ml 98 ml Exam Constitutional: alert, frail, obese, oriented Respiratory: clear to auscultation, normal air movement Cardiovascular: regular rate and rhythm Gastrointestinal: soft Musculoskeletal: nl extremities to inspection Results Result Diagram: 12/25/16 0440 12/25/16 0440 Results 24 hrs Laboratory Tests Test 12/24/16 10:36 12/24/16 13:26 12/24/16 15:27 12/24/16 21:23 Bedside Glucose 164 150 113 White Blood Count 13.2 H Red Blood Count 3.90 L Hemoglobin 10.8 L Hematocrit 35.0 L Mean Corpuscular Volume 89.7 Mean Corpuscular Hemoglobin 27.7 L Mean Corpuscular Hemoglobin Concent 30.9 L Red Cell Distribution Width 17.6 H Platelet Count 135 L Mean Platelet Volume 10.0 Neutrophils % 75.7 Lymphocytes % 10.2 L Monocytes % 10.8 Eosinophils % 1.1 Basophils % 0.4 Nucleated Red Blood Cells % 0.0 Neutrophils # 10.0 H Lymphocytes # 1.4 Monocytes # 1.4 H Eosinophils # 0.2 Basophils # 0.1 Nucleated Red Blood Cells # 0.0 Test 12/25/16 01:18 12/25/16 04:40 12/25/16 05:57 Bedside Glucose 115 170 White Blood Count 11.0 H Red Blood Count 3.59 L Hemoglobin 9.9 L Hematocrit 32.9 L Mean Corpuscular Volume 91.6 Mean Corpuscular Hemoglobin 27.6 L Mean Corpuscular Hemoglobin Concent 30.1 L Red Cell Distribution Width 17.2 H Platelet Count 183 # Mean Platelet Volume 10.3 Neutrophils % 66.1 Lymphocytes % 13.3 L Monocytes % 16.0 H Eosinophils % 2.3 Basophils % 0.5 Nucleated Red Blood Cells % 0.0 Neutrophils # 7.3 Lymphocytes # 1.5 Monocytes # 1.8 H Eosinophils # 0.3 Basophils # 0.1 Nucleated Red Blood Cells # 0.0 Sodium Level 130 L Potassium Level 4.8 Chloride Level 92 L Carbon Dioxide Level 32 H Anion Gap 11 Blood Urea Nitrogen 46 H Creatinine 1.70 H Glucose Level 125 Calcium Level 8.4 Total Bilirubin 0.0 L Direct Bilirubin 0.00 Indirect Bilirubin 0.0 Aspartate Amino Transf (AST/SGOT) 39 Alanine Aminotransferase (ALT/SGPT) 24 Alkaline Phosphatase 229 H Total Protein 5.8 L Albumin 2.7 L Globulin 3.10 Albumin/Globulin Ratio 0.87 Medications Medications Current Medications Acetaminophen (Tylenol Liquid) 650 mg Q4H PRN NGT PAIN AND OR ELEVATED TEMP Last administered on 12/18/16 06:32; Admin Dose 650 MG; Start 09/21/16 at 02:00 IV Flush (NS 10 ml) 10 ml PRN PRN IV IV PROTOCOL Last administered on 12/12/16 21:49; Admin Dose 10 ML; Start 09/26/16 at 17:30 Lactulose (Enulose) 20 gm BID PRN PO CONSTIPATION Last administered on 05:34; Admin Dose 20 GM; Start 10/23/16 at 10:30 Amylase/Lipase/ Protease (CREON (19o-[id number])) 3 cap Q6 NGT Last administered on 12/25/16 05:58; Admin Dose 3 CAP; Start 10/29/16 at 13:00 Latanoprost (Xalatan) 1 drop HS BOTH EYES Last administered on 12/24/16 21:58 ; Admin Dose 1 DROP; Start 10/31/16 at 21:00 Dorzolamide/ Timolol (Cosopt) 1 drop BID BOTH EYES Last administered on 21:29; Admin Dose 1 DROP; Start 10/31/16 at 21:00 Glucagon (Glucagen) 1 mg Q15M PRN IM DECREASED GLUCOSE Last administered on 05:40; Admin Dose 1 MG; Start 11/03/16 at 18:00 Ondansetron HCl (Zofran Inj) 4 mg Q4H PRN IV NAUSEA AND/OR VOMITING Last administered on 12/24/16 15:26; Admin Dose 4 MG; Start 11/04/16 at 23:00 Eye Lubricant (Artificial Tears Oph) 2 drop QID BOTH EYES Last administered on 12/24/16 21:31; Admin Dose 2 DROP; Start 11/07/16 at 09:00 Morphine Sulfate (morphine) 1 mg Q3H PRN IV pain Last administered on 19:12; Admin Dose 1 MG; Start 11/10/16 at 08:00 Miscellaneous Information 1 ea NOTE XX ; Start 11/14/16 at 10:00 Glucose (Glutose) 15 gm Q15M PRN PO DECREASED GLUCOSE; Start 11/14/16 at 10:00 Glucose (Glutose) 22.5 gm Q15M PRN PO DECREASED GLUCOSE; Start 11/14/16 at 10: 00 Dextrose (D50w Syringe) 25 ml Q15M PRN IV DECREASED GLUCOSE Last administered on 12/22/16 21:10; Admin Dose 25 ML; Start 11/14/16 at 10:00 Dextrose (D50w Syringe) 50 ml Q15M PRN IV DECREASED GLUCOSE Last administered on 12/07/16 05:29; Admin Dose 50 ML; Start 11/14/16 at 10:00 Glucose (Glutose) 15 gm Q15M PRN BUCCAL DECREASED GLUCOSE Last administered on 12/23/16 00:39; Admin Dose 15 GM; Start 11/14/16 at 10:00 Escitalopram Oxalate (Lexapro) 10 mg DAILY GTB Last administered on 12/24/16 10:38; Admin Dose 10 MG; Start 11/16/16 at 12:30 Lactobacillus Acidophilus (Florajen3 Capsule) 1 each TID PEG Last administered on 12/24/16 21:58; Admin Dose 1 EACH; Start 11/23/16 at 21:00 Calcium Carbonate (Tums) 500 mg TID PEG Last administered on 12/24/16 21:29; Admin Dose 500 MG; Start 11/23/16 at 21:00 Metoprolol Tartrate (Lopressor) 25 mg BID GTB Last administered on 12/24/16 21 :30; Admin Dose 25 MG; Start 11/23/16 at 21:00 Metoclopramide HCl (Reglan) 5 mg Q6 PEG Last administered on 12/25/16 06:08; Admin Dose 5 MG; Start 12/03/16 at 01:00 Aspirin (Aspirin) 81 mg MONWEDFRI GTB ; Start 12/09/16 at 09:00; Status Future Hold Clopidogrel Bisulfate (plaVIX) 75 mg MONWEDFRI GTB ; Start 12/09/16 at 09:00; Status Future Hold Lansoprazole 30 mg 30 mg DAILY@06 GTB Last administered on 12/25/16 05:58; Admin Dose 30 MG; Start 12/12/16 at 06:00 Ertapenem/Sodium Chloride (Invanz/NS) 100 ml @ 200 mls/hr Q24H IVPB Last administered on 12/23/16 15:57; Admin Dose 200 MLS/HR; Start 12/18/16 at 16:00 Insulin Aspart (Novolog Insulin Pen) (Adult SC Insulin - Moder... Q4 SC Last administered on 12/25/16 06:06; Admin Dose 2 UNIT; Start 12/20/16 at 09:00 Insulin Glargine (Lantus) 36 unit DAILY@08 SC Last administered on 12/24/16 10 :44; Admin Dose 36 UNIT; Start 12/21/16 at 08:00 Alprazolam 0.25 mg 0.25 mg QHS PRN NGT SLEEP Last administered on 12/24/16 21: 29; Admin Dose 0.25 MG; Start 12/22/16 at 14:30 Dextrose/Sodium Chloride (D5-1/2ns) 1,000 ml @ 50 mls/hr Q20H IV Last administered on 12/25/16 03:33; Admin Dose 50 MLS/HR; Start 12/22/16 at 15:30 DAMIR MARTINEZ MD Dec 25, 2016 08:50
[2016-12-25] MEDS: METOPROLOL 25 MG TAB GTB SCH (08:59)
[2016-12-25] MEDS ORDERED: LEVOFLOXACIN 250 MG TAB GTB SCH (10:00)
--- NOTE | 2016-12-25 12:20 | CONS ---
Date/Time of Note Date/Time of Note DATE: 12/25/16 TIME: 12:19 Assessment/Plan Assessment/Plan Chief Complaint/Hosp Course SUBJECTIVE: No acute changes. Patient is alert, lying comfortably in bed. Denies pain, no fevers. INDWELLINGS: Right chest Perm-A-Cath, PEG, right-sided abdominal pigtail. ANTIMICROBIALS: The patient remains on Invanz, status post fluconazole. PHYSICAL EXAMINATION: GENERAL: Fragile, chronically ill-appearing, elderly woman who is awake, in no distress. HEENT: Head atraumatic, normocephalic. Sclerae anicteric. Buccal mucosa dry. NECK: Supple. CHEST: Rise symmetrical. Breath sounds diminished to bases. HEART: S1, S2. ABDOMEN: Soft. Bowel tones present. EXTREMITIES: With right lower extremity gangrenous changes of the toe. ASSESSMENT: 1. Status post sepsis. 2. Acute cholecystitis status post cholecystostomy drain placement on 2016 with abdominal fluid culture grew Escherichia coli. 3. Status post Escherichia coli bacteremia. 4. Status post urinary tract infection. 5. End-stage renal disease, hemodialysis dependent. 6. Bilateral lower extremities gangrene over the toes. 7. Dysphagia, status post percutaneous endoscopic gastrostomy. 8. History of cardiopulmonary arrest. PLAN: The patient remains stable. Pending dc to acute rehab, will change abx to PO Levaquin for 7 days to complete treatment [facility] staff Problems: Consultation Date/Type/Reason Admit Date/Time Sep 20, 2016 at 19:21 Initial Consult Date 09/23/16 Type of Consultation: ID Referring Provider: ZANDRA ROBISON MD, [facility] Exam/Review of Systems Vital Signs Vitals Vital Signs Date Time Temp Pulse Resp B/P Pulse Ox O2 Delivery O2 Flow Rate FiO2 12/25/16 09:49 85 19 95 21 12/25/16 07:27 98.5 103/52 12/24/16 21:30 Room Air Intake and Output 12/24/16 12/24/16 12/25/16 15:00 23:00 07:00 Intake Total 500 ml 0 ml 100 ml Output Total 2500 ml 2 ml 2 ml Balance -2000 ml -2 ml 98 ml Results Result Diagram: 12/25/16 0440 12/25/16 0440 Results 24 hrs Laboratory Tests Test 12/24/16 13:26 12/24/16 15:27 12/24/16 21:23 12/25/16 01:18 White Blood Count 13.2 H Red Blood Count 3.90 L Hemoglobin 10.8 L Hematocrit 35.0 L Mean Corpuscular Volume 89.7 Mean Corpuscular Hemoglobin 27.7 L Mean Corpuscular Hemoglobin Concent 30.9 L Red Cell Distribution Width 17.6 H Platelet Count 135 L Mean Platelet Volume 10.0 Neutrophils % 75.7 Lymphocytes % 10.2 L Monocytes % 10.8 Eosinophils % 1.1 Basophils % 0.4 Nucleated Red Blood Cells % 0.0 Neutrophils # 10.0 H Lymphocytes # 1.4 Monocytes # 1.4 H Eosinophils # 0.2 Basophils # 0.1 Nucleated Red Blood Cells # 0.0 Bedside Glucose 150 113 115 Test 12/25/16 04:40 12/25/16 05:57 12/25/16 08:37 White Blood Count 11.0 H Red Blood Count 3.59 L Hemoglobin 9.9 L Hematocrit 32.9 L Mean Corpuscular Volume 91.6 Mean Corpuscular Hemoglobin 27.6 L Mean Corpuscular Hemoglobin Concent 30.1 L Red Cell Distribution Width 17.2 H Platelet Count 183 # Mean Platelet Volume 10.3 Neutrophils % 66.1 Lymphocytes % 13.3 L Monocytes % 16.0 H Eosinophils % 2.3 Basophils % 0.5 Nucleated Red Blood Cells % 0.0 Neutrophils # 7.3 Lymphocytes # 1.5 Monocytes # 1.8 H Eosinophils # 0.3 Basophils # 0.1 Nucleated Red Blood Cells # 0.0 Sodium Level 130 L Potassium Level 4.8 Chloride Level 92 L Carbon Dioxide Level 32 H Anion Gap 11 Blood Urea Nitrogen 46 H Creatinine 1.70 H Glucose Level 125 Calcium Level 8.4 Total Bilirubin 0.0 L Direct Bilirubin 0.00 Indirect Bilirubin 0.0 Aspartate Amino Transf (AST/SGOT) 39 Alanine Aminotransferase (ALT/SGPT) 24 Alkaline Phosphatase 229 H Total Protein 5.8 L Albumin 2.7 L Globulin 3.10 Albumin/Globulin Ratio 0.87 Bedside Glucose 170 179 ROSALINA SIMS NP Dec 25, 2016 12:20
--- NOTE | 2016-12-25 15:01 | DS ---
Date/Time of Note Date/Time of Note DATE: 12/25/16 TIME: 14:35 Discharge Summary Admission/Discharge Info Admit Date/Time Sep 20, 2016 at 19:21 Discharge Date/Time Dec 25, 2016 at 11:25 Final Diagnosis Bacteremia/ UTI/ ARF--dialysis/ CAD/ PAD--gangrenous toes/ Pulm Effusion/ Anemia / DM/ Depression/ Debility--muscle weak/ PEG tube feed/ Obesity/ Stasis skin ulcers Patient Condition: Guarded Consults ID, Gen Surg, GI, Pulm, Cards, Renal, Speech rx, Phys rx, Occupational rx, skin care team Procedures Cholystotomy, PEG tube place, Dialysis, Thoracentesis, Cardiac STENT place, KUBs , CXRs, EKGs, Echo, blood tests, urine tests, EEG, Hx of Present Illness Pt came to [facility] ER c/o cp, found to have acute STEMI, thus immediately cardiac team was called to place a stent in RCA. Thereafter, while in ICU, post UT complications appeared including pulm effusion/ CHF/ PAD with gangrenous toes/ ARF/ encephalopathy with AMS/ abnormal LFTs/ anemia/ debility with muscle weak/ dysphagia/ fluctuant glucose/ uti/ cholangitis with bacteremia/ depression. Many specialists were on board, every nursing & ancilliary cares & supports were given. Dialysis was started, blood transfusions were given, Peg tube was placed & tube fed, was intubated & extubated twice, different iv atbxs were given, & extensive resp/ phys/ occup/ speech rxs were attempted. Slow but steadily pt responded. As of today, pt is awake, fully able to communicate with weak voice, mainly fed via PEG tube, remains afebrile & vs stable. Pt is to transfer to SNF via ambulance today for further rehab with current meds. Hospital Course SUBJECTIVE: No acute changes. Patient is alert, lying comfortably in bed. Denies pain, no fevers. INDWELLINGS: Right chest Perm-A-Cath, PEG, right-sided abdominal pigtail. ANTIMICROBIALS: The patient remains on Invanz, status post fluconazole. PHYSICAL EXAMINATION: GENERAL: Fragile, chronically ill-appearing, elderly woman who is awake, in no distress. HEENT: Head atraumatic, normocephalic. Sclerae anicteric. Buccal mucosa dry. NECK: Supple. CHEST: Rise symmetrical. Breath sounds diminished to bases. HEART: S1, S2. ABDOMEN: Soft. Bowel tones present. EXTREMITIES: With right lower extremity gangrenous changes of the toe. ASSESSMENT: 1. Status post sepsis. 2. Acute cholecystitis status post cholecystostomy drain placement on 2016 with abdominal fluid culture grew Escherichia coli. 3. Status post Escherichia coli bacteremia. 4. Status post urinary tract infection. 5. End-stage renal disease, hemodialysis dependent. 6. Bilateral lower extremities gangrene over the toes. 7. Dysphagia, status post percutaneous endoscopic gastrostomy. 8. History of cardiopulmonary arrest. PLAN: The patient remains stable. Pending dc to acute rehab, will change abx to PO Levaquin for 7 days to complete treatment [facility] staff Home Meds Reported Medications Latanoprost (Latanoprost) 2.5 Ml Drops, 1 DROP BOTH EYES QHS, #1 BOTTLE 09/20/16 Dorzolamide/Timolol* (Dorzolamide/Timolol*) 10 Ml Drops, 1 DROP BOTH EYES BID, # 1 EA 09/20/16 Discontinued Reported Medications Canagliflozin (Invokana) 300 Mg Tablet, 300 MG PO DAILY, TAB 09/20/16 Atorvastatin (Lipitor) 10 Mg Tablet, 10 MG PO HS 08/15/11 Lisinopril* (Prinivil*) 5 Mg Tablet, 5 MG PO DAILY 08/15/11 Nph, Human Insulin Isophane* (Novolin N*) 100 U/Ml Vial, 50 UNITS SC BID 08/15/11 Follow-up Plan 1. diabetic PEG tube feed as scheduled 2. continue all hospital meds as 3. full PT/ OT/ ST/ RT eval & set up exercises 4. cont all ancilliary supportive cares including skin care for stasis ulcers 5. remains to be a Full Code 6. Shama Castillo MD will follow as PMD 7. out pt maintenance dialysis sched set up Primary Care Provider Shama Castillo MD Time spent on discharge: > 30 minutes Pending Labs Laboratory Tests Test 12/24/16 15:27 12/24/16 21:23 12/25/16 01:18 12/25/16 04:40 Bedside Glucose 150mg/dL (70-220) 113mg/dL (70-220) 115mg/dL (70-220) White Blood Count 11.010^3/ul (4.8-10.8) Red Blood Count 3.5910^6/ul (4.20-5.40) Hemoglobin 9.9g/dl (12.0-16.0) Hematocrit 32.9% (37.0-47.0) Mean Corpuscular Volume 91.6fl (82.0-101.0) Mean Corpuscular Hemoglobin 27.6pg (29.0-33.0) Mean Corpuscular Hemoglobin Concent 30.1g/dl (32.0-37.0) Red Cell Distribution Width 17.2% (11.5-14.5) Platelet Count 20777^3/UL (140-415) Mean Platelet Volume 10.3fl (7.4-10.4) Neutrophils % 66.1% (39.0-77.0) Lymphocytes % 13.3% (15.0-51.0) Monocytes % 16.0% (0.0-11.0) Eosinophils % 2.3% (0.0-7.0) Basophils % 0.5% (0.0-2.0) Nucleated Red Blood Cells % 0.0/100WBC (0.0-0.0) Neutrophils # 7.310^3/ul (1.6-7.5) Lymphocytes # 1.510^3/ul (0.8-2.9) Monocytes # 1.810^3/ul (0.3-0.9) Eosinophils # 0.310^3/ul (0.0-0.5) Basophils # 0.110^3/ul (0.0-0.1) Nucleated Red Blood Cells # 0.010^3/ul (0.0-0.0) Sodium Level 130mmol/L (135-144) Potassium Level 4.8mmol/L (3.5-5.1) Chloride Level 92mmol/L (97-110) Carbon Dioxide Level 32mmol/L (21-31) Anion Gap 11 (8-16) Blood Urea Nitrogen 46mg/dl (7-20) Creatinine 1.70mg/dl (0.44-1.00) Glucose Level 125mg/dl (70-220) Calcium Level 8.4mg/dl (8.4-10.2) Total Bilirubin 0.0mg/dl (0.2-1.3) Direct Bilirubin 0.00mg/dl (0.00-0.20) Indirect Bilirubin 0.0mg/dl (0-1.1) Aspartate Amino Transf (AST/SGOT) 39IU/L (15-46) Alanine Aminotransferase (ALT/SGPT) 24IU/L (13-69) Alkaline Phosphatase 229IU/L (42-121) Total Protein 5.8g/dl (6.1-8.1) Albumin 2.7g/dl (3.3-4.9) Globulin 3.10g/dl (1.3-3.2) Albumin/Globulin Ratio 0.87 Test 12/25/16 05:57 12/25/16 08:37 Bedside Glucose 170mg/dL (70-220) 179mg/dL (70-220) SHAMA CASTILLO MD Dec 25, 2016 14:52
== END 2016-12-25 11:25 | DRG 216 ==
LOC: E/R 18:01 → ICU 19:21 → TEL 10-17 22:36 → MS2 10-20 19:25 → MS4 11-05 16:14 → ICU 11-05 21:47 → TEL 11-13 15:53 → MS1 11-25 17:59
PROVIDERS: ADMIT Internal Medicine; ATTEND Internal Medicine
PROC: 5A1955Z Respiratory Ventilation, Greater than 96 Consecutive Hours (ICD-10-PCS; 2016-09-20)
PROC: B211YZZ Fluoroscopy of Multiple Coronary Arteries using Other Contrast (ICD-10-PCS; 2016-09-20)
PROC: B215YZZ Fluoroscopy of Left Heart using Other Contrast (ICD-10-PCS; 2016-09-20)
PROC: 3E083PZ Introduction of Platelet Inhibitor into Heart, Percutaneous Approach (ICD-10-PCS; 2016-09-20)
PROC: 0BH17EZ Insertion of Endotracheal Airway into Trachea, Via Natural or Artificial Opening (ICD-10-PCS; 2016-09-20)
PROC: 3E033XZ Introduction of Vasopressor into Peripheral Vein, Percutaneous Approach (ICD-10-PCS; 2016-09-20)
PROC: 6A4Z0ZZ Hypothermia, Single (ICD-10-PCS; 2016-09-20)
PROC: 027035Z Dilation of Coronary Artery, One Artery with Two Drug-eluting Intraluminal Devices, Percutaneous Approach (ICD-10-PCS; principal; 2016-09-20 19:00)
PROC: 5A02216 Assistance with Cardiac Output using Other Pump, Continuous (ICD-10-PCS; 2016-09-20 19:00)
PROC: 4A023N7 Measurement of Cardiac Sampling and Pressure, Left Heart, Percutaneous Approach (ICD-10-PCS; 2016-09-20 19:00)
PROC: 06HM33Z Insertion of Infusion Device into Right Femoral Vein, Percutaneous Approach (ICD-10-PCS; 2016-09-29)
PROC: 5A1D60Z (ICD-10-PCS; 2016-09-29)
PROC: 0BH17EZ Insertion of Endotracheal Airway into Trachea, Via Natural or Artificial Opening (ICD-10-PCS; 2016-10-03)
PROC: 5A1955Z Respiratory Ventilation, Greater than 96 Consecutive Hours (ICD-10-PCS; 2016-10-03)
PROC: 5A12012 Performance of Cardiac Output, Single, Manual (ICD-10-PCS; 2016-10-03)
PROC: 0B938ZX Drainage of Right Main Bronchus, Via Natural or Artificial Opening Endoscopic, Diagnostic (ICD-10-PCS; 2016-10-07)
PROC: 0DH63UZ Insertion of Feeding Device into Stomach, Percutaneous Approach (ICD-10-PCS; 2016-11-02)
PROC: 0W993ZZ Drainage of Right Pleural Cavity, Percutaneous Approach (ICD-10-PCS; 2016-11-06)
PROC: 0DJD8ZZ Inspection of Lower Intestinal Tract, Via Natural or Artificial Opening Endoscopic (ICD-10-PCS; 2016-11-12)
PROC: 0DJ08ZZ Inspection of Upper Intestinal Tract, Via Natural or Artificial Opening Endoscopic (ICD-10-PCS; 2016-11-12)
DX: I21.19 ST elevation (STEMI) myocardial infarction involving other coronary artery of inferior wall (principal); A41.9 Sepsis, unspecified organism; K72.00 Acute and subacute hepatic failure without coma; J96.21 Acute and chronic respiratory failure with hypoxia; N17.0 Acute kidney failure with tubular necrosis; R65.21 Severe sepsis with septic shock; J69.0 Pneumonitis due to inhalation of food and vomit; G93.41 Metabolic encephalopathy; J96.22 Acute and chronic respiratory failure with hypercapnia; I46.2 Cardiac arrest due to underlying cardiac condition; N18.6 End stage renal disease; I47.2 Ventricular tachycardia; K92.2 Gastrointestinal hemorrhage, unspecified; Z68.43 Body mass index [BMI] 50.0-59.9, adult; B37.49 Other urogenital candidiasis; J90 Pleural effusion, not elsewhere classified; I82.A12 Acute embolism and thrombosis of left axillary vein; I70.268 Atherosclerosis of native arteries of extremities with gangrene, other extremity; K62.5 Hemorrhage of anus and rectum; K81.0 Acute cholecystitis; R13.10 Dysphagia, unspecified; I50.9 Heart failure, unspecified; I48.0 Paroxysmal atrial fibrillation; E11.22 Type 2 diabetes mellitus with diabetic chronic kidney disease; E66.01 Morbid (severe) obesity due to excess calories; G72.9 Myopathy, unspecified; E87.5 Hyperkalemia; I25.10 Atherosclerotic heart disease of native coronary artery without angina pectoris; E83.51 Hypocalcemia; E88.09 Other disorders of plasma-protein metabolism, not elsewhere classified; I12.9 Hypertensive chronic kidney disease with stage 1 through stage 4 chronic kidney disease, or unspecified chronic kidney disease; N18.9 Chronic kidney disease, unspecified; D63.1 Anemia in chronic kidney disease; Y95 Nosocomial condition; F32.9 Major depressive disorder, single episode, unspecified; F41.9 Anxiety disorder, unspecified; K21.9 Gastro-esophageal reflux disease without esophagitis; K64.8 Other hemorrhoids; K64.4 Residual hemorrhoidal skin tags; K94.29 Other complications of gastrostomy; Y83.3 Surgical operation with formation of external stoma as the cause of abnormal reaction of the patient, or of later complication, without mention of misadventure at the time of the procedure; Y92.230 Patient room in hospital as the place of occurrence of the external cause; E87.6 Hypokalemia; R10.12 Left upper quadrant pain; Z79.4 Long term (current) use of insulin; Z99.2 Dependence on renal dialysis; Z79.82 Long term (current) use of aspirin; Z79.02 Long term (current) use of antithrombotics/antiplatelets; Z79.01 Long term (current) use of anticoagulants
CPT/HCPCS: 31500; 32555; 36430; 36558; 36569; 36600; 70450; 71010; 74000; 74176; 74230; 75989; 76700; 76705; 76775; 76937; 76942; 77012; 80048; 80053; 80076; 80202; 81001; 81003; 82040; 82140; 82150; 82270; 82330; 82465; 82533; 82550; 82553; 82570; 82728; 82803; 82945; 82947; 82962; 83036; 83540; 83605; 83615; 83690; 83735; 83880; 83970; 84100; 84132; 84155; 84157; 84300; 84443; 84484; 85014; 85018; 85025; 85384; 85610; 85730; 86704; 86709; 86803; 86850; 86900; 86901; 86920; 87040; 87045; 87070; 87075; 87081; 87086; 87102; 87116; 87340; 89050; 89190; 89220; 90935; 92526; 92610; 92611; 92950; 92953; 93005; 93306; 93458; 93922; 93970; 94002; 94003; 94640; 94660; 94664; 94667; 94668; 94770; 97110; 97162; 97164; 97530; J1940; A4310; C1731; C1769; C1874; C1887; C9113; C9606; J0171; J0278; J0282; J0461; J0610; J0690; J1200; J1265; J1327; J1335; J1580; J1610; J1644; J1815; J1956; J2060; J2185; J2250; J2270; J2370; J2405; J2543; J2765; J2997; J3010; J3370; J3480; J7030; J7040; J7042; J7050; J7060; J7070; P9016; P9047; P9059; Q4081; Q9967

== ENCOUNTER 2017-01-15 11:25 | Outpatient (CLI) | payer MEDICARE, BC, OTHER ==
[~2017-01-15 11:25] MED LIST changes: -ATOR10TA23 PO; -ATROPINE 1 MG/10 ML SYRINGE ONE; +DORZ10DR6 BOTH EYES; -EPINEPHrine 0.1 MG/ML SYG ONE; -ETOMIDATE 20 MG INJ ONE; -GLIP-95 PO; +LATA2.5D2 BOTH EYES; -LISI5TAB PO; -MTF1000T PO; -NPH,100V10 SC; -RALO60TA12 PO; -ROCURONIUM 50 MG INJ ONE; -SITA100T8 PO
[2017-01-15 11:32] VITALS: BP 122/58; PULSE 86; RESP 18
--- NOTE | 2017-01-15 12:08 | PN ---
Date/Time of Note Date/Time of Note DATE: 01/15/17 TIME: 11:56 Assessment/Plan Assessment/Plan Assessment/Plan [facility] Progress Note Date of Service: 01/15/17 Today's Impression & Plan: Overall has remained stable and slowly improving. No indication for acute surgical intervention. Abd remains benign. Will discuss with IR (Dr. Back) re drain check. Not ready for lap myron. Will likely need 2-3 more months of recovery prior to possible surgical intervention. Alternative (not ideal, but certainly possible) would be to d/c the drain in a few weeks and observe patient. This would only be if patient will not be eligible for surgery. Discussed with patient and her and answered all questions. With above assessment, I've recommended the following for today: 1. Perc myron drain check with IR (Dr. Back) at [facility]. 2. Cont current cares 3. F/u with us in 2-3 months Thank you again for your great care of this very pleasant patient and wonderful family. If there are any questions, please feel free to call me at [phone]. Nature of presenting problem: High severity Disclaimer: Inadvertent spelling or grammatical errors are likely due to EHR/ dictation software use and do not reflect on the overall quality of patient care. Updated Clinical Summary: A very pleasant 71-year-old lady with multiple comorbid issues including BMI of 35.6 as well as what has been in the hospital since 09/2016 being found unresponsive and multiple issues including congestive heart failure, acute renal failure due to acute tubular necrosis requiring dialysis, urinary tract infection with bacteremia and multiple other issues, who was found to have possible signs of acute cholecystitis on recent imaging. D/c to [facility] ([place] ) 12/25/16. COMORBIDITIES: 1. BMI of 35.6. 2. Acute renal failure (ATN), on maintenance hemodialysis (Friday, , Friday). 3. Congestive heart failure. 4. Anemia. 5. Hypocalcemia. 6. Hypoalbuminemia and malnutrition. 7. Peripheral vascular disease with gangrene of toes of both feet. 8. Recent history of respiratory failure. 9. History of dysphagia requiring PEG placement and feedings. 10. Diabetes mellitus. 11. Leukocytosis from various sources. 12. Funguria with Erica glabrata and Erica albicans of the urine. 13. Escherichia coli and Enterococcus urinary tract infection 10/29/2016. 14. Escherichia coli bacteremia 12/02/2016 (x2 cultures). 15. Repeat culture of the urine 12/02/2016 with E. coli, enterococcus species and Klebsiella pneumoniae, extended-spectrum beta-lactamase. 16. Repeat bacteremia 12/08/2016 with Escherichia coli. 17. Urine positive for Erica albicans 12/11/2016. 18. Clostridium difficile colitis negative on a few stool samples. 19. Bilateral pleural effusions. 20. 2 mm calcified granuloma in the right lower lobe. 21. CT scan of abdomen and pelvis 12/13/2016 showing large amount of pericholecystic fluid with distention of the gallbladder, which could be of acute cholecystitis. 22. Tumefaction sludge, poorly visualized gallstones or soft tissue masses are suspected within the lumen of the distended gallbladder. 23. Anasarca. 24. Status post splenectomy. 25. A 2.8 cm left parapelvic cyst and an adjacent 1.4 cm simple cyst lateral upper portion of the lower third left kidney noted. 26. Atherosclerotic vascular disease. 27. Osteoarthritis of the thoracic and lumbosacral spine. 28. History of acute ST elevation myocardial infarction, inferior wall, status post code STEMI with stent placement, as well as temporary pacer wire. 29. Hyperlipidemia. 30. Possible aspiration pneumonia. 31. S/p CT-guided percutaneous transhepatic cholecystostomy drain placement 06/22, [facility] Subjective: No major events or complaints since discharge; no major abd pain and only occasional abdominal pain (not particularly centered in the RUQ or drain site); no reported major n/v/d; no sob or cp; + flatus; + BM; minimal activity. No new issues. Being dialyzed. Not able to stand on her own power yet, but physical therapy ongoing. Objective: Vitals: See below Exam: GENERAL: On exam, the patient was sitting in a wheelchair and appeared to be comfortable and in no acute distress. ABDOMEN: Soft, nontender and nondistended. There are no peritoneal signs or guarding. Perc GB drain with bilious purulent output in the tubing. Minimal fluid in the AMBROSE. Recorded outputs are 5 cc per day. SKIN: Skin appears to be pink and feels warm to touch. NEUROLOGIC: Patient is awake, alert, and follows commands appropriately. Exam/Review of Systems Vital Signs Vitals Vital Signs Date Time Temp Pulse Resp B/P Pulse Ox O2 Delivery O2 Flow Rate FiO2 01/15/17 11:32 98.0 86 18 122/58 96 Room Air SHANA ROSARIO M.D. Jan 15, 2017 12:08
[2017-01-16] MEDS ORDERED: LACTINEX GTB (20:05)
[2017-01-16] MEDS ORDERED: ALPR0.254 GTB (20:06)
[2017-01-16] MEDS ORDERED: DEXT15DR2 BOTH EYES (20:07)
[2017-01-16] MEDS ORDERED: ASPI81TA3 GTB (20:07)
[2017-01-16] MEDS ORDERED: CALC500T79 GTB (20:12)
[2017-01-16] MEDS ORDERED: DOCU-159 GTB (20:13)
[2017-01-16] MEDS ORDERED: CRAN425C GTB (20:14)
[2017-01-16] MEDS ORDERED: LIPA1CAP4 GTB (20:15)
[2017-01-16] MEDS ORDERED: BISA10SU75 PR (20:17)
[2017-01-16] MEDS ORDERED: NA P230E RC (20:19)
[2017-01-16] MEDS ORDERED: LACT20SO2 GTB (20:20)
[2017-01-16] MEDS ORDERED: LANT3I SC (20:22)
[2017-01-16] MEDS ORDERED: LACT10SO5 GTB (20:22)
[2017-01-16] MEDS ORDERED: ESCI10TA GTB (20:23)
[2017-01-16] MEDS ORDERED: METO25TA4 GTB (20:24)
[2017-01-16] MEDS ORDERED: MIDO5TAB19 GTB ×2 (20:27→20:29)
[2017-01-16] MEDS ORDERED: MAGN400O4 GTB (20:36)
[2017-01-16] MEDS ORDERED: MULT-105 GTB (20:37)
[2017-01-16] MEDS ORDERED: CLOP75TA27 GTB (20:38)
[2017-01-16] MEDS ORDERED: METO5TAB58 GTB (20:39)
[2017-01-16] MEDS ORDERED: ACET325T33 GTB (20:41)
[2017-01-16] MEDS ORDERED: TYL500 GTB (20:42)
[2017-01-16] MEDS ORDERED: LEVA1.257 INHALATION (20:43)
[2017-01-16] MEDS ORDERED: ASCO500C7 GTB (20:43)
[2017-01-16] MEDS ORDERED: ZINC220T GTB (20:44)
== END 2017-01-15 16:44 | disposition home or self-care (01) ==
LOC: HPC 11:25
PROVIDERS: ATTEND Transplant Surgery
DX: I50.9 Heart failure, unspecified (principal); N18.9 Chronic kidney disease, unspecified; D64.9 Anemia, unspecified; N39.0 Urinary tract infection, site not specified
CPT/HCPCS: G0463

== ENCOUNTER 2017-01-16 18:57 | Inpatient (IN) | payer MEDICARE, BC ==
[~2017-01-16] VITALS: Ht 165.1 cm; Wt 105.9 kg
[2017-01-16] MEDS ORDERED: ONDANSETRON 4 MG INJ IV STA (19:04)
[2017-01-16] MEDS ORDERED: SOD CHLORIDE 0.9% 1,000 ML IV STA (19:04)
[2017-01-16] MEDS ORDERED: morphine 4 MG/ML VIAL IV STA (19:04)
[2017-01-16 19:42] LABS: ADD SCAN DIFF NO
[2017-01-16 19:44] LABS: ABNORMAL IP MESSAGE 1; HEMATOCRIT 35.6 % (37.0-47.0); MEAN CORPUSCULAR HGB CONC 30.9 g/dl (32.0-37.0); MEAN CORPUSCULAR VOLUME 90.6 fl (82.0-101.0); MEAN PLATELET VOLUME 9.5 fl (7.4-10.4); PLATELET COUNT 417 10^3/UL (140-415); RED BLOOD COUNT 3.93 10^6/ul (4.20-5.40); RED CELL DISTRIBUTION WIDTH 18.2 % (11.5-14.5); WHITE BLOOD COUNT 25.1 10^3/ul (4.8-10.8)
[2017-01-16 19:59] LABS: INR 0.96; PROTIME 12.8 Sec (12.2-14.2)
[2017-01-16 20:00] LABS: PARTIAL THROMBOPLASTIN TIME 24.8 Sec (25.0-35.0)
[2017-01-16] MEDS ORDERED: VANCOMYCIN 1 GM (PMX) 250 ML IVPB STA (20:03)
[2017-01-16] MEDS ORDERED: PIPER-TAZO 3.375 GM IV (PMX) 100 ML IVPB STA (20:03)
[2017-01-16 20:04] LABS: ALBUMIN 3.3 g/dl (3.3-4.9); ALBUMIN/GLOBULIN RATIO 0.91; BILIRUBIN,INDIRECT 0.1 mg/dl (0-1.1); BILIRUBIN,TOTAL 0.1 mg/dl (0.2-1.3); CALCIUM 8.8 mg/dl (8.4-10.2); CREATININE 0.81 mg/dl (0.44-1.00); TOTAL PROTEIN 6.9 g/dl (6.1-8.1)
[2017-01-16] MEDS ORDERED: LACTINEX GTB (20:05)
[2017-01-16] MEDS ORDERED: ALPR0.254 GTB (20:06)
[2017-01-16] MEDS ORDERED: DEXT15DR2 BOTH EYES (20:07)
[2017-01-16] MEDS ORDERED: ASPI81TA3 GTB (20:07)
[2017-01-16] MEDS ORDERED: CALC500T79 GTB (20:12)
[2017-01-16] MEDS ORDERED: DOCU-159 GTB (20:13)
[2017-01-16] MEDS ORDERED: CRAN425C GTB (20:14)
[2017-01-16 20:15] LABS: TROPONIN-I 0.016 ng/ml (0.00-0.12)
[2017-01-16] MEDS ORDERED: LIPA1CAP4 GTB (20:15)
[2017-01-16] MEDS ORDERED: BISA10SU75 PR (20:17)
[2017-01-16] MEDS ORDERED: NA P230E RC (20:19)
[2017-01-16] MEDS ORDERED: LACT20SO2 GTB (20:20)
[2017-01-16] MEDS ORDERED: LANT3I SC (20:22)
[2017-01-16] MEDS ORDERED: LACT10SO5 GTB (20:22)
[2017-01-16] MEDS ORDERED: ESCI10TA GTB (20:23)
[2017-01-16] MEDS ORDERED: METO25TA4 GTB (20:24)
[2017-01-16] MEDS ORDERED: MIDO5TAB19 GTB ×2 (20:27→20:29)
[2017-01-16] MEDS ORDERED: MAGN400O4 GTB (20:36)
[2017-01-16] MEDS ORDERED: MULT-105 GTB (20:37)
[2017-01-16] MEDS ORDERED: CLOP75TA27 GTB (20:38)
[2017-01-16] MEDS ORDERED: METO5TAB58 GTB (20:39)
[2017-01-16] MEDS ORDERED: ACET325T33 GTB (20:41)
[2017-01-16] MEDS ORDERED: TYL500 GTB (20:42)
[2017-01-16] MEDS ORDERED: LEVA1.257 INHALATION (20:43)
[2017-01-16] MEDS ORDERED: ASCO500C7 GTB (20:43)
[2017-01-16] MEDS ORDERED: ZINC220T GTB (20:44)
--- NOTE | 2017-01-16 21:01 | RADRPT ---
PROCEDURE: CT abdomen and pelvis without contrast. CLINICAL INDICATION: Abdominal pain TECHNIQUE: CT scan of the abdomen and pelvis without contrast was performed on a multislice CT [facility] utilizing axial imaging from the lung bases through the pubis symphysis. The patient was scann ed without intravenous contrast. Sagittal and coronal reformatted images were made. The CTDIvol is 22.80 mGy and the DLP is 1510.29 mGycm. One of the following 3 dose reduction techniques were used during this CT examination: automated exp osure control; adjustment of the mA and /or kV according to patient size; or use of iterative recons tructon technique. COMPARISON: None. FINDINGS: The lung bases are remarkable for a moderate right pleural effusion with Hounsfield units of 13. The heart size demonstrates mild cardiomegaly and vascular calcifications of the thoracic aorta and the coronary arteries. No pericardial effusion is present. Right lower lobe consolidation or atelecta sis is present. The visualized liver is of normal size and attenuation. The visualized spleen, pancreas, and bilate ral adrenal glands are normal. Distended gallbladder with cholelithiasis and a cholecystostomy cath eter is noted. The visualized kidneys demonstrate no evidence for hydroureteronephrosis or nephroureterolithiasis. The visualized aorta demonstrates vascular calcifications without aneurysmal dilatation. The visualized bowel is nonobstructive. No evidence for diverticulosis, diverticulitis, or appendic itis is present. The gastrostomy tube from the stomach is seen now in the subcutaneous tissues of the left anterior c hest wall with extensive subcutaneous emphysema present. Extensive left anterior and anterolateral wall edema and extraperitoneal fluid is present. Marked emphysematous changes are present in the ext raperitoneal fluid and subcutaneous tissues. present. Recommend repositioning of gastrostomy tube. No evidence for ascites or pneumoperitoneum is present. The urinary bladder is markedly distended and recommend correlation with urethral obstruction. The uterus and bilateral adnexa are normal. Surgical clips are present adjacent to the left uterus. The surrounding osseous structures are remarkable for generalized osteopenia. Degenerative changes and vacuum phenomenon are noted of the bilateral sacroiliac joints. Degenerative spondylosis is not ed of the imaged spine. IMPRESSION: 1. Gastrostomy tube retracted from gastric lumen into left anterior abdominal subcutaneous tissues with marked subcutaneous and abdominal wall emphysematous changes present. 2. Cholecystostomy in a distended gallbladder with cholelithiasis present. 3. Moderate right pleural effusion and right lower lobe atelectasis or consolidation. 4. Mild cardiomegaly and atherosclerotic vascular disease 5. Markedly distended urinary bladder and correlate with urethral outlet obstruction. 6. Degenerative spondylosis of the imaged spine and osteopenia. A call report was made to Samina Nunez at 01/16/2017 8:54:39 PM following the completion of the examination by the undersigned. RPTAT: HDC .Bethany Feilciano MD, MD Date Time Electronically viewed and signed by .Bethany Feliciano MD, MD on 01/16/2017 21:01 .C/
[2017-01-16] MEDS ORDERED: SODIUM CHLORIDE 0.9% 1L BAG IV* STA (21:17)
[2017-01-16 21:20] LABS: EOSINOPHILS # 0.8 10^3/ul (0.0-0.5); LYMPHOCYTES # 2.3 10^3/ul (0.8-2.9); NEUTROPHIL # 17.3 10^3/ul (1.6-7.5)
[2017-01-16] MEDS ORDERED: POTASSIUM CHLORIDE 10 MEQ in SOD CHLORIDE 0.9% 1,000 ML IV SCH (23:00)
--- NOTE | 2017-01-16 23:27 | ERA ---
ER Documentation Chief Complaint Date/Time DATE: 01/16/17 TIME: 23:09 Chief Complaint sent from snf for eval of abd pain HPI This is a very pleasant 72-year-old female that presents to the emergency department from [facility] with abdominal pain. The patient has a cholecystostomy catheter placed in her gallbladder due to the patient being unstable to undergo a cholecystectomy. Her surgeon is Dr. Hernandes who stated he had evaluated the patient in his office on an outpatient basis yesterday. Nursing staff indicated that the patient has continued to complain of diffuse abdominal discomfort over the past 24 hours. She has not expressed any fever shaking or chills. She does have a gastrostomy tube present but her indicates she was able to eat solid foods by mouth yesterday. The patient does state that most of the abdominal pain is around the gastrostomy tube. She is unable to ambulate. She has not experienced any hemoptysis hematemesis or melanotic stools. Her primary care physician is Dr. Webb and Dr. Helm is her GI physician. Patient has not experienced any shortness of breath. ROS All systems reviewed and are negative except as per history of present illness. Medications Home Meds Reported Medications Zinc Sulfate* (Zinc Sulfate*) 220 Mg Tablet, 220 MG GTB DAILY, TAB 01/16/17 Levalbuterol Hcl* (Levalbuterol Hcl*) 1.25 Mg/3 Ml Vial.neb, 1.25 MG INHALATION Q6H Y for WHEEZING AND SOB, VIAL 01/16/17 Ascorbic Acid* (Vitamin C*) 500 Mg Capsule.sa, 500 MG GTB DAILY, CAP 01/16/17 Acetaminophen* (Tylenol*) 500 Mg Tab, 1000 MG GTB Q4H Y for PAIN 4-6/10, TAB 01/16/17 Acetaminophen* (Tylenol*) 325 Mg Tablet, 650 MG GTB Q4H Y for MILD PAIN LEVEL 1- 3, TAB FOR FEVER 100 AND ABOVE AND PAIN MGMT PRIOR TO TX 01/16/17 Metoclopramide* (Reglan*) 5 Mg Tablet, 5 MG GTB AC MEALS, TAB Q6H 01/16/17 Clopidogrel Bisulfate (Clopidogrel) 75 Mg Tablet, 75 MG GTB DAILY, #30 TAB 01/16/17 Multivitamin with Minerals (Multivitamins with Minerals) 1 Each Tablet, 1 EACH GTB DAILY, TAB 01/16/17 Magnesium Hydroxide* (Milk Of Magnesia*) 400 Mg/5 Ml Oral.susp, 30 ML GTB as needed Y for prn, ML 01/16/17 Midodrine* (Midodrine*) 5 Mg Tablet, 5 MG GTB TID, TAB TAKE TUE,[place],SAT-3AM,11AM,3PM 01/16/17 Midodrine* (Midodrine*) 5 Mg Tablet, 5 MG GTB TID, TAB TAKE EVERY SUN,MON,WED,FRI-8AM,11AM,AND 4PM 01/16/17 Metoprolol Tartrate* (Lopressor*) 25 Mg Tablet, 25 MG GTB BID, #60 TAB HOLD IF SBP<110 OR HR<60 01/16/17 Escitalopram Oxalate* (Lexapro*) 10 Mg Tablet, 10 MG GTB DAILY, #30 TAB 01/16/17 Insulin Glargine* (Lantus*) 100 Unit/Ml Soln, 36 UNIT SC QHS, #1 VIAL 01/16/17 Lactulose* (Lactulose*) 10 Gm/15 Ml Solution, 30 ML GTB BID, ML 01/16/17 Na Phos,M-B/Na Phos,Di-Ba (Fleet Enema Extra) 230 Ml Enema, 230 ML RC Q2D, ENEMA 01/16/17 Bisacodyl* (Bisacodyl*) 10 Mg Supp, 10 MG SD DAILY Y for PRN, SUPP 01/16/17 Ppnjsd-Eatcskor-Hobzvdb* (Thais GARCIA* 12,000) 12,000 L-38,000-60,000 Unit Capsule.dr, 3 CAP GTB WITH MEALS, CAP Q6H 01/16/17 Cranberry Extract (Cranberry) 425 Mg Capsule, 425 MG GTB DAILY, CAP 01/16/17 Docusate Sodium* (Docusate Sodium*) 100 Mg Capsule, 200 MG GTB QHS, #30 CAP 01/16/17 Calcium Carbonate (NATURAL CALCIUM) 500 Mg Tablet, 500 MG GTB TID, TAB CHEWABLE 01/16/17 Aspirin* (Aspirin* Chew) 81 Mg Tab.chew, 81 MG GTB DAILY, TAB.CHEW 01/16/17 Dextran/Hypromellose/Glycerin (Artificial Tears Drops) 15 Ml Drops, 2 DROP BOTH EYES QID, EA 01/16/17 Alprazolam* (Alprazolam*) 0.25 Mg Tablet, 0.25 MG GTB PRN Y for ANXIETY, TAB 01/16/17 Lactobacillus Acidophilus* (Lactinex*) 1 Tab Chew, 1 TAB GTB TID, TAB 01/16/17 Latanoprost (Latanoprost) 2.5 Ml Drops, 1 DROP BOTH EYES QHS, #1 BOTTLE 09/20/16 Dorzolamide/Timolol* (Dorzolamide/Timolol*) 10 Ml Drops, 1 DROP BOTH EYES BID, # 1 EA 09/20/16 Discontinued Reported Medications Lactulose* (Lactulose*) 20 Gm/30 Ml Solution, 20 GM GTB BID, ML 01/16/17 Allergies Allergies: Coded Allergies: soy (Verified Allergy, Unknown, 01/16/17) PMhx/Soc History of Surgery: Yes (R subclavian permacath, GT placed) Anesthesia Reaction: No Hx Neurological Disorder: Yes (encephalopathy) Hx Respiratory Disorders: Yes (PNA) Hx Cardiac Disorders: Yes (HTN, afib, HLD, STEMI, bradycardia, CHF, PVD) Hx Psychiatric Problems: No Hx Miscellaneous Medical Probl: Yes (depression, anxiety, cholecystitis, sepsis , anemia, DM2) Hx Substance Use: No Smoking Status: Unknown if ever smoked Physical Exam Vitals Vital Signs Date Time Temp Pulse Resp B/P Pulse Ox O2 Delivery O2 Flow Rate FiO2 01/16/17 21:15 100.0 102 20 122/48 97 Nasal Cannula 3.0 01/16/17 19:00 98.3 110 18 126/58 99 Physical Exam Constitutional:Well-developed. Well-nourished. HEENT:Normocephalic. Atraumatic.Pupils were equal round reactive to light. Moist mucous membranes.No tonsillar exudates. Neck: No nuchal rigidity. No lymphadenopathy. No posterior cervical spine tenderness or step-offs. Respiratory: Not using accessory muscles of respiration.Lungs were clear to auscultation bilaterally. No rhonchi. No rales. No wheezing. Cardiovascular: Regular rate regular rhythm.No murmurs. No rubs were appreciated.S1, S2 normal. Distal pulses are palpable 2+ bilaterally. GI: Abdomen was soft. Drain in the right upper quadrant was clean dry and intact. Gastrostomy tube appeared slightly dislodged with surrounding erythremia purulent drainage and tenderness. No pulsatile abdominal masses or bruits. No rebound. No guarding. Bowel sounds were present and normal. Muscle skeletal: Full range of motion of both the upper extremities bilaterally. Decreased muscle strength of bilateral lower extremities with 2 out of 5 strength bilaterally. Normal muscle tone.No assymetrical calf tenderness or swelling. Skin: No petechia, no purpura. No lesions on the palms or the soles of the feet. No maculopapular rash. NEURO: Patient was alert, awake, orientated x3.No facial droop. Patient unable to ambulate therefore gait not observed speech had regular rate and rhythm. No focal neurological deficits. Result Diagram: 01/16/17191901/16/171919 Results 24 hrs Laboratory Tests Test 01/16/17 19:20 White Blood Count 25.110^3/ul Red Blood Count 3.9310^6/ul Hemoglobin 11.0g/dl Hematocrit 35.6% Mean Corpuscular Volume 90.6fl Mean Corpuscular Hemoglobin 28.0pg Mean Corpuscular Hemoglobin Concent 30.9g/dl Red Cell Distribution Width 18.2% Platelet Count 71670^3/UL Mean Platelet Volume 9.5fl Neutrophils % 69.0% Band Neutrophils % 15.0% Lymphocytes % 9.0% Monocytes % 4.0% Eosinophils % 3.0% Nucleated Red Blood Cells % 1.0/100WBC Neutrophils # 17.310^3/ul Lymphocytes # 2.310^3/ul Monocytes # 1.010^3/ul Eosinophils # 0.810^3/ul Prothrombin Time 12.8Sec Prothrombin Time Ratio 1.0 INR International Normalized Ratio 0.96 Activated Partial Thromboplast Time 24.8Sec Sodium Level 124mmol/L Potassium Level 3.0mmol/L Chloride Level 91mmol/L Carbon Dioxide Level 31mmol/L Anion Gap 5 Blood Urea Nitrogen 25mg/dl Creatinine 0.81mg/dl Glucose Level 190mg/dl Calcium Level 8.8mg/dl Total Bilirubin 0.1mg/dl Direct Bilirubin 0.00mg/dl Indirect Bilirubin 0.1mg/dl Aspartate Amino Transf (AST/SGOT) 37IU/L Alanine Aminotransferase (ALT/SGPT) 47IU/L Alkaline Phosphatase 402IU/L Troponin I 0.016ng/ml Total Protein 6.9g/dl Albumin 3.3g/dl Globulin 3.60g/dl Albumin/Globulin Ratio 0.91 Amylase Level 95U/L Lipase 34U/L Current Medications Medications (Trade) Dose Ordered Sig/Chris Route PRN Reason Start Time Stop Time Status Last Admin Dose Admin Sodium Chloride (NS) 1,000 ml @ 1,000 mls/hr Q1H STAT IV 01/16/17 19:04 01/16/17 20:03 DC 01/16/17 19:44 Morphine Sulfate (morphine) 4 mg ONCE STAT IV 01/16/17 19:04 01/16/17 19:06 DC 01/16/17 19:44 Ondansetron HCl 4 mg 4 mg ONCE STAT IV 01/16/17 19:04 01/16/17 19:06 DC 01/16/17 19:44 Piperacillin Sod/ Tazobactam Sod 100 ml @ 200 mls/hr ONCE STAT IVPB 01/16/17 20:03 01/16/17 20:32 DC 01/16/17 20:21 Vancomycin HCl (Vancocin) 250 ml @ 125 mls/hr ONCE STAT IVPB 01/16/17 20:03 01/16/17 22:02 DC 01/16/17 21:01 Sodium Chloride 2790 ml 2,790 ml BOLUS OVER 2 HOURS STAT IV* 01/16/17 21:17 01/16/17 21:19 DC 01/16/17 22:28 Potassium Chloride/Sodium Chloride (KCl/NS) 1,005 ml @ 70 mls/hr [id number] IV 01/16/17 23:00 UNV Metoprolol Tartrate (Lopressor) 2.5 mg BID IV 01/17/17 09:00 UNV Insulin Aspart (Novolog Insulin Pen) 5 unit WITH MEALS SC 01/17/17 08:00 UNV Ondansetron HCl (Zofran Inj) 4 mg ER BRIDGE PRN IV NAUSEA AND/OR VOMITING 01/16/17 23:30 01/17/17 23:29 Acetaminophen (Tylenol Tab) 650 mg ER BRIDGE PRN PO MILD PAIN/FEVER 01/16/17 23:30 01/17/17 23:29 Procedures/MDM This patient presented to the emergency department with abdominal pain and was seen and evaluated by myself. My differential diagnosis included but was not limited to abdominal aortic aneurysm, appendicitis, pancreatitis, perforated peptic ulcer, perforated viscus, Boerhaaves syndrome or visceral pain such as diverticulitis, DKA, esophagitis, hepatitis or bowel obstruction. The patient was placed on a awake overnight monitor, continuous pulse oximetry, and IV access was established by nursing staff. The patient is CT scan of the abdomen which indicated the following and read by the radiologist as well as myself: 1. Gastrostomy tube retracted from gastric lumen into left anterior abdominal subcutaneous tissues with marked subcutaneous and abdominal wall emphysematous changes present. 2. Cholecystostomy in a distended gallbladder with cholelithiasis present. 3. Moderate right pleural effusion and right lower lobe atelectasis or consolidation. 4. Mild cardiomegaly and atherosclerotic vascular disease 5. Markedly distended urinary bladder and correlate with urethral outlet obstruction. 6. Degenerative spondylosis of the imaged spine and osteopenia. I informed Dr. Hernandes of the results. He will be consulted on the patient to undergo a drain check first thing in the morning. I spoke with the admitting physician Dr. Webb. I have removed the G-tube as suggested by Dr. Hernandes and placed a temporary Rivas in place. The G-tube will not be used and Dr. Helm will be consulted in the morning by the admitting physician. The patient was placed on broad-spectrum antibiotics that she developed a low- grade fever. Blood cultures and urine cultures were obtained. The patient was placed on vancomycin and Zosyn. Departure Diagnosis: Primary Impression: Gastrostomy site leak Additional Impression: Intractable abdominal pain LATASHA DUKE Jan 16, 2017 23:20
[2017-01-16] MEDS ORDERED: GLUCAGON 1 MG INJ IM PRN (23:30)
[2017-01-16] MEDS ORDERED: ONDANSETRON 4 MG INJ IV PRN (23:30)
[2017-01-16] MEDS ORDERED: ACETAMINOPHEN 325 MG TAB PO PRN (23:30)
[2017-01-16] MEDS ORDERED: GLUCOSE GEL 15 GRAM TUBE BUCCAL PRN (23:30)
[2017-01-16] MEDS ORDERED: DEXTROSE 50% 50 ML SYRINGE IV PRN (23:30)
[2017-01-16] MEDS ORDERED: GLUCOSE GEL 15 GRAM TUBE PO PRN ×2 (23:30)
[2017-01-17 05:25] LABS: ADD SCAN DIFF NO
[2017-01-17 05:28] LABS: ABNORMAL IP MESSAGE 1; HEMATOCRIT 28.9 % (37.0-47.0); HEMOGLOBIN 8.7 g/dl (12.0-16.0); MEAN CORPUSCULAR HEMOGLOBIN 27.8 pg (29.0-33.0); MEAN CORPUSCULAR HGB CONC 30.1 g/dl (32.0-37.0); MEAN CORPUSCULAR VOLUME 92.3 fl (82.0-101.0); MEAN PLATELET VOLUME 9.5 fl (7.4-10.4); PLATELET COUNT 351 10^3/UL (140-415); RED BLOOD COUNT 3.13 10^6/ul (4.20-5.40); RED CELL DISTRIBUTION WIDTH 18.6 % (11.5-14.5); WHITE BLOOD COUNT 24.7 10^3/ul (4.8-10.8)
[2017-01-17 05:41] LABS: INR 1.04; PROTIME 13.6 Sec (12.2-14.2); PT RATIO 1.1
[2017-01-17 05:46] LABS: CALCIUM 7.4 mg/dl (8.4-10.2); CREATININE 0.87 mg/dl (0.44-1.00); MAGNESIUM 1.9 mg/dl (1.7-2.5); POTASSIUM 3.2 mmol/L (3.5-5.1)
[2017-01-17 06:16] LABS: EOSINOPHILS # 0.2 10^3/ul (0.0-0.5); LYMPHOCYTES # 2.7 10^3/ul (0.8-2.9); NEUTROPHIL # 20.7 10^3/ul (1.6-7.5)
[2017-01-17] MEDS: INSULIN ASPART [NOVOLOG] 3 ML PEN SC SCH ×3 (08:00→21:00)
[2017-01-17] MEDS: METOPROLOL 5 MG INJ IV SCH ×2 (09:00→21:00)
--- NOTE | 2017-01-17 09:06 | RADRPT ---
PROCEDURE: XR Abdomen. CLINICAL INDICATION: Abdominal pain TECHNIQUE: Two AP views of the abdomen were obtained COMPARISON: CT abdomen and pelvis dated 01/16/2017 FINDINGS: Dilation is limited secondary to exposure technique. There is a nonobstructive bowel gas pattern. There is right upper quadrant subcutaneous emphysema. There are is a right upper quadrant pigtail c atheter. No abnormal soft tissue calcifications are seen. The visualized portions of the lung base s demonstrate a small right pleural effusion. The osseous structures demonstrate senescent changes IMPRESSION: 1. Again noted is right upper quadrant subcutaneous emphysema. Not significantly changed from prio r examination. 2. Cholecystostomy tube in place. 3. Small to moderate right pleural effusion. RPTAT: HH .Ana Salter MD, MD Date Time Electronically viewed and signed by .Ana Salter MD, on 01/17/2017 09:04 .G/
[2017-01-17] MEDS ORDERED: SODIUM CHLORIDE 0.9% 1L BAG IV* STA (11:03)
[2017-01-17 11:10] VITALS: TEMP 99.5
[2017-01-17 11:45] LABS: ADD SCAN DIFF NO
[2017-01-17 11:58] LABS: ABNORMAL IP MESSAGE 1; BASOPHILS % 0.1 % (0.0-2.0); EOSINOPHILS % 0.1 % (0.0-7.0); HEMATOCRIT 28.4 % (37.0-47.0); HEMOGLOBIN 8.4 g/dl (12.0-16.0); LYMPHOCYTES # 3.1 10^3/ul (0.8-2.9); LYMPHOCYTES % 10.9 % (15.0-51.0); MEAN CORPUSCULAR HEMOGLOBIN 27.5 pg (29.0-33.0); MEAN CORPUSCULAR HGB CONC 29.6 g/dl (32.0-37.0); MEAN CORPUSCULAR VOLUME 92.8 fl (82.0-101.0); MEAN PLATELET VOLUME 9.7 fl (7.4-10.4); MONOCYTE # 1.1 10^3/ul (0.3-0.9); MONOCYTES % 3.8 % (0.0-11.0); NEUTROPHIL # 23.5 10^3/ul (1.6-7.5); NEUTROPHILS % 83.7 % (39.0-77.0); NUCLEATED RED BLOOD CELLS% 0.1 /100WBC (0.0-0.0); PLATELET COUNT 346 10^3/UL (140-415); RED BLOOD COUNT 3.06 10^6/ul (4.20-5.40); RED CELL DISTRIBUTION WIDTH 18.8 % (11.5-14.5)
[2017-01-17 12:21] LABS: ALBUMIN 2.1 g/dl (3.3-4.9); ALBUMIN/GLOBULIN RATIO 0.8; BILIRUBIN,INDIRECT 0.1 mg/dl (0-1.1); BILIRUBIN,TOTAL 0.1 mg/dl (0.2-1.3); CALCIUM 7.9 mg/dl (8.4-10.2); CREATININE 1.03 mg/dl (0.44-1.00); TOTAL PROTEIN 4.7 g/dl (6.1-8.1)
[2017-01-17 12:29] LABS: POTASSIUM 2.8 mmol/L (3.5-5.1)
[2017-01-17] MEDS: POTASSIUM CHLORIDE 250 ML IVPB SCH ×2 (13:00→17:00)
[2017-01-17] MEDS ORDERED: POTASSIUM CHLORIDE 20 MEQ in SOD CHLORIDE 0.9% 100 ML IVPB ONE ×2 (13:00→15:30)
[2017-01-17] MEDS ORDERED: PIPER-TAZO 2.25 GM (PMX) 50 ML IVPB SCH (14:00)
[2017-01-17] MEDS ORDERED: VANCOMYCIN IV PER PHARMACY XX SCH (14:00)
--- NOTE | 2017-01-17 14:09 | CONS ---
Date/Time of Note Date/Time of Note DATE: 01/17/17 TIME: 13:49 Assessment/Plan Assessment/Plan Chief Complaint/Hosp Course 1) SubQ emphysema due to dislodged g-tube culture the wound site and continue with vanco/zosyn 2) choleycystitis pt has had a drain in place for this until she is ready for surgery will cx the fluid that is present 3) recent STEMI and hx of CABG 4) renal failure pt has very good creatinine but is still receiving dialysis she also has distended bladder by CT will get u/a and urine cx, nurse to straight cath vanco/zosyn should cover 5) sacral ulcer unable to see nurse to get picture Problems: Consultation Date/Type/Reason Admit Date/Time 01/17/17 Date of Consultation: Jan 17, 2017 Type of Consultation: ID Hx of Present Illness pt was tx to ER from the half-way due to a day of abd pain She was recently at [facility] with STEMI, acute choleycystitis. She got renal failure and was put on dialysis She got a choleycystomy because pt was too unstable to do a choleycystitis pt is still receiving dialysis she denies V, D she appears comfortable Past Medical History HTN, renal failure, STEMI, GERD, sacral ulcer, ASHD, g-tube Past Surgical History CABG Past Surgical Hx: noncontributory Social History Smoking Status: Unknown if ever smoked Exam/Review of Systems Vital Signs Vitals Vital Signs Date Time Temp Pulse Resp B/P Pulse Ox O2 Delivery O2 Flow Rate FiO2 01/17/17 11:10 99.5 111 36 115/57 96 Nasal Cannula 3.0 Exam pt follows directions, answers some simple questions Constitutional: alert Eyes: nl conjunctiva ENMT: mucosa pink and moist Respiratory: clear to auscultation Cardiovascular: regular rate and rhythm Gastrointestinal: distended, other (g-tube prior site has blood/pus present, no surrounding redness, drain at GB site is present with dark greenish drainage , BS present) Extremities: edema Neurological: other (pt does not walk and speaks minimally and softly) Results Result Diagram: 01/17/17 1025 01/17/17 1025 Results 24 hrs Laboratory Tests Test 01/16/17 19:20 01/17/17 00:37 01/17/17 03:41 01/17/17 05:10 White Blood Count 25.1 #H 24.7 H Red Blood Count 3.93 L 3.13 #L Hemoglobin 11.0 L 8.7 #L Hematocrit 35.6 L 28.9 L Mean Corpuscular Volume 90.6 92.3 Mean Corpuscular Hemoglobin 28.0 L 27.8 L Mean Corpuscular Hemoglobin Concent 30.9 L 30.1 L Red Cell Distribution Width 18.2 H 18.6 H Platelet Count 417 #H 351 Mean Platelet Volume 9.5 9.5 Neutrophils % 69.0 84.0 H Band Neutrophils % 15.0 H Lymphocytes % 9.0 L 11.0 L Monocytes % 4.0 4.0 Eosinophils % 3.0 1.0 Nucleated Red Blood Cells % 1.0 H Neutrophils # 17.3 H 20.7 H Lymphocytes # 2.3 2.7 Monocytes # 1.0 H 1.0 H Eosinophils # 0.8 H 0.2 Prothrombin Time 12.8 13.6 Prothrombin Time Ratio 1.0 1.1 INR International Normalized Ratio 0.96 1.04 Activated Partial Thromboplast Time 24.8 L Sodium Level 124 L 126 L Potassium Level 3.0 L 3.2 L Chloride Level 91 L 99 Carbon Dioxide Level 31 25 Anion Gap 5 L 5 L Blood Urea Nitrogen 25 H 26 H Creatinine 0.81 0.87 Glucose Level 190 172 Calcium Level 8.8 7.4 L Total Bilirubin 0.1 L Direct Bilirubin 0.00 Indirect Bilirubin 0.1 Aspartate Amino Transf (AST/SGOT) 37 Alanine Aminotransferase (ALT/SGPT) 47 Alkaline Phosphatase 402 H Troponin I 0.016 Total Protein 6.9 Albumin 3.3 Globulin 3.60 H Albumin/Globulin Ratio 0.91 Amylase Level 95 Lipase 34 Lactic Acid Level 3.0 *H Bedside Glucose 207 Magnesium Level 1.9 Test 01/17/17 10:25 01/17/17 10:52 White Blood Count 28.0 H Red Blood Count 3.06 L Hemoglobin 8.4 L Hematocrit 28.4 L Mean Corpuscular Volume 92.8 Mean Corpuscular Hemoglobin 27.5 L Mean Corpuscular Hemoglobin Concent 29.6 L Red Cell Distribution Width 18.8 H Platelet Count 346 Mean Platelet Volume 9.7 Neutrophils % 83.7 H Lymphocytes % 10.9 L Monocytes % 3.8 Eosinophils % 0.1 Basophils % 0.1 Nucleated Red Blood Cells % 0.1 H Neutrophils # 23.5 H Lymphocytes # 3.1 H Monocytes # 1.1 H Eosinophils # 0.0 Basophils # 0.0 Nucleated Red Blood Cells # 0.0 Sodium Level 131 L Potassium Level 2.8 *L Chloride Level 101 Carbon Dioxide Level 26 Anion Gap 7 L Blood Urea Nitrogen 26 H Creatinine 1.03 H Glucose Level 144 Lactic Acid Level 2.2 *H Calcium Level 7.9 L Total Bilirubin 0.1 L Direct Bilirubin 0.00 Indirect Bilirubin 0.1 Aspartate Amino Transf (AST/SGOT) 33 Alanine Aminotransferase (ALT/SGPT) 43 Alkaline Phosphatase 296 H Total Protein 4.7 #L Albumin 2.1 #L Globulin 2.60 Albumin/Globulin Ratio 0.80 Bedside Glucose 151 Medications Medications Current Medications Potassium Chloride/Sodium Chloride (KCl/NS) 1,005 ml @ 70 mls/hr [id number] IV Last administered on 01/17/17 00:38; Admin Dose 70 MLS/HR; Start 01/16/17 at 23 :00 Metoprolol Tartrate (Lopressor) 2.5 mg BID IV ; Start 01/17/17 at 09:00 Miscellaneous Information 1 ea NOTE XX ; Start 01/16/17 at 23:30 Glucose (Glutose) 15 gm Q15M PRN PO DECREASED GLUCOSE; Start 01/16/17 at 23:30 Glucose (Glutose) 22.5 gm Q15M PRN PO DECREASED GLUCOSE; Start 01/16/17 at 23: 30 Dextrose (D50w Syringe) 25 ml Q15M PRN IV DECREASED GLUCOSE; Start 01/16/17 at 23:30 Dextrose (D50w Syringe) 50 ml Q15M PRN IV DECREASED GLUCOSE; Start 01/16/17 at 23:30 Glucagon (Glucagen) 1 mg Q15M PRN IM DECREASED GLUCOSE; Start 01/16/17 at 23:30 Glucose 15 gm 15 gm Q15M PRN BUCCAL DECREASED GLUCOSE; Start 01/16/17 at 23:30 Potassium Chloride 20 meq/ Sodium Chloride 110 ml @ 55 mls/hr ONCE ONCE IVPB Last administered on 01/17/17 13:28; Admin Dose 55 MLS/HR; Start 01/17/17 at 13 :00; Stop 01/17/17 at 14:59 Potassium Chloride (KCl 40 MEQ/250 ML NS) 250 ml @ 62.5 mls/hr Q4H IVPB ; Start 01/17/17 at 13:00; Stop 01/17/17 at 20:59 TR GOODEN MD Jan 17, 2017 13:59
[2017-01-17] MEDS ORDERED: VANCOMYCIN 1 GM in NS 250 ML IVPB ONE (15:00)
[2017-01-17 15:32] LABS: ADD UMIC YES; UR ASCORBIC ACID NEGATIVE (NEGATIVE); UR BACTERIA MANY /HPF (NONE SEEN); UR BILIRUBIN (Dip) NEGATIVE (NEGATIVE); UR BLOOD (Dip) 3+ mg/dL (NEGATIVE); UR CLARITY TURBID (CLEAR); UR COLOR YELLOW (YELLOW); UR GLUCOSE (Dip) NEGATIVE (NEGATIVE); UR KETONES (Dip) NEGATIVE (NEGATIVE); UR LEUKOCYTE ESTERASE (Dip) 3+ Leu/ul (NEGATIVE); UR NITRITE (Dip) NEGATIVE (NEGATIVE); UR RBC > 182 /HPF (0-5); UR SPECIFIC GRAVITY (Dip) 1.012 (1.003-1.030); UR SQUAMOUS EPITHELIAL CELL FEW /HPF (FEW); UR TOTAL PROTEIN (Dip) 2+ mg/dl (NEGATIVE); UR UROBILINOGEN (Dip) NEGATIVE (NEGATIVE)
--- NOTE | 2017-01-17 15:32 | CONS ---
Date/Time of Note Date/Time of Note DATE: 01/17/17 TIME: 15:26 Assessment/Plan Assessment/Plan Chief Complaint/Hosp Course Assessment 1. Severe sepsis likely polymicrobial 2. Large right pleural effusion likely secondary to low oncotic pressure, third spacing of fluid into pleural space. 3. End-stage renal failure on hemodialysis 4. History ST elevation [place] 5. Recent recurrent hypoxemic respiratory failure 6. Dysphagia with G-tube Plan 1. Broad-spectrum antibiotics per infectious diseases 2. Supplemental O2 as needed 3. Wound care 4. Thoracentesis with pleural fluid studies Problems: Consultation Date/Type/Reason Admit Date/Time 01/17/17 Date of Consultation: Jan 17, 2017 Type of Consultation: Pulmonary Reason for Consultation Shortness of breath Hx of Present Illness For multiple medical problems including ST elevation [place], acute renal failure now on hemodialysis, cholecystectomy status post drainage, decubitus ulcers, dysphagia, recurrent pleural effusions, hypoxemic respiratory failure requiring mechanical ventilation. She comes from intermediate facility today for evaluation of worsening mentation increasing shortness of breath and low blood pressure. Imaging demonstrated significant right pleural effusion with some compressive atelectasis. Patient is mostly nonverbal and unable to give me further details. Past Medical History Gastrostomy tube placement Dysphagia End-stage renal failure on hemodialysis ST elevation [place] Cholecystitis Past Surgical History Past Surgical Hx: noncontributory Social History Smoking Status: Unknown if ever smoked Exam/Review of Systems Vital Signs Vitals Vital Signs Date Time Temp Pulse Resp B/P Pulse Ox O2 Delivery O2 Flow Rate FiO2 01/17/17 11:10 99.5 111 36 115/57 96 Nasal Cannula 3.0 Exam GENERAL: Chronically ill-appearing lady makes eye contact but is not audible. VITAL SIGNS: per chart NECK: Supple. No JVD or lymphadenopathy. CARDIAC EXAM: S1, S2. No added sounds or murmurs. CHEST: Diminished air entry both lung fairchild ABDOMEN: Soft, nontender. No guarding or rebound. G-tube site erythema possible infection EXTREMITIES: No cyanosis, clubbing edema +1 NEUROLOGIC: Generalized weakness. Unable to assess Skin. Decubitus ulcer with evidence of infection Results CT abdomen Large right pleural effusion with compressive atelectasis Result Diagram: 01/17/17 1025 01/17/17 1025 Results 24 hrs Laboratory Tests Test 01/16/17 19:20 01/17/17 00:37 01/17/17 03:41 01/17/17 05:10 White Blood Count 25.1 #H 24.7 H Red Blood Count 3.93 L 3.13 #L Hemoglobin 11.0 L 8.7 #L Hematocrit 35.6 L 28.9 L Mean Corpuscular Volume 90.6 92.3 Mean Corpuscular Hemoglobin 28.0 L 27.8 L Mean Corpuscular Hemoglobin Concent 30.9 L 30.1 L Red Cell Distribution Width 18.2 H 18.6 H Platelet Count 417 #H 351 Mean Platelet Volume 9.5 9.5 Neutrophils % 69.0 84.0 H Band Neutrophils % 15.0 H Lymphocytes % 9.0 L 11.0 L Monocytes % 4.0 4.0 Eosinophils % 3.0 1.0 Nucleated Red Blood Cells % 1.0 H Neutrophils # 17.3 H 20.7 H Lymphocytes # 2.3 2.7 Monocytes # 1.0 H 1.0 H Eosinophils # 0.8 H 0.2 Prothrombin Time 12.8 13.6 Prothrombin Time Ratio 1.0 1.1 INR International Normalized Ratio 0.96 1.04 Activated Partial Thromboplast Time 24.8 L Sodium Level 124 L 126 L Potassium Level 3.0 L 3.2 L Chloride Level 91 L 99 Carbon Dioxide Level 31 25 Anion Gap 5 L 5 L Blood Urea Nitrogen 25 H 26 H Creatinine 0.81 0.87 Glucose Level 190 172 Calcium Level 8.8 7.4 L Total Bilirubin 0.1 L Direct Bilirubin 0.00 Indirect Bilirubin 0.1 Aspartate Amino Transf (AST/SGOT) 37 Alanine Aminotransferase (ALT/SGPT) 47 Alkaline Phosphatase 402 H Troponin I 0.016 Total Protein 6.9 Albumin 3.3 Globulin 3.60 H Albumin/Globulin Ratio 0.91 Amylase Level 95 Lipase 34 Lactic Acid Level 3.0 *H Bedside Glucose 207 Magnesium Level 1.9 Test 01/17/17 10:25 01/17/17 10:52 White Blood Count 28.0 H Red Blood Count 3.06 L Hemoglobin 8.4 L Hematocrit 28.4 L Mean Corpuscular Volume 92.8 Mean Corpuscular Hemoglobin 27.5 L Mean Corpuscular Hemoglobin Concent 29.6 L Red Cell Distribution Width 18.8 H Platelet Count 346 Mean Platelet Volume 9.7 Neutrophils % 83.7 H Lymphocytes % 10.9 L Monocytes % 3.8 Eosinophils % 0.1 Basophils % 0.1 Nucleated Red Blood Cells % 0.1 H Neutrophils # 23.5 H Lymphocytes # 3.1 H Monocytes # 1.1 H Eosinophils # 0.0 Basophils # 0.0 Nucleated Red Blood Cells # 0.0 Sodium Level 131 L Potassium Level 2.8 *L Chloride Level 101 Carbon Dioxide Level 26 Anion Gap 7 L Blood Urea Nitrogen 26 H Creatinine 1.03 H Glucose Level 144 Lactic Acid Level 2.2 *H Calcium Level 7.9 L Total Bilirubin 0.1 L Direct Bilirubin 0.00 Indirect Bilirubin 0.1 Aspartate Amino Transf (AST/SGOT) 33 Alanine Aminotransferase (ALT/SGPT) 43 Alkaline Phosphatase 296 H Total Protein 4.7 #L Albumin 2.1 #L Globulin 2.60 Albumin/Globulin Ratio 0.80 Bedside Glucose 151 Medications Medications Current Medications Potassium Chloride/Sodium Chloride (KCl/NS) 1,005 ml @ 70 mls/hr [id number] IV Last administered on 01/17/17t 00:38; Admin Dose 70 MLS/HR; Start 01/16/17 at 23 :00 Metoprolol Tartrate (Lopressor) 2.5 mg BID IV ; Start 01/17/17 at 09:00 Miscellaneous Information 1 ea NOTE XX ; Start 01/16/17 at 23:30 Glucose (Glutose) 15 gm Q15M PRN PO DECREASED GLUCOSE; Start 01/16/17 at 23:30 Glucose (Glutose) 22.5 gm Q15M PRN PO DECREASED GLUCOSE; Start 01/16/17 at 23: 30 Dextrose (D50w Syringe) 25 ml Q15M PRN IV DECREASED GLUCOSE; Start 01/16/17 at 23:30 Dextrose (D50w Syringe) 50 ml Q15M PRN IV DECREASED GLUCOSE; Start 01/16/17 at 23:30 Glucagon (Glucagen) 1 mg Q15M PRN IM DECREASED GLUCOSE; Start 01/16/17 at 23:30 Glucose 15 gm 15 gm Q15M PRN BUCCAL DECREASED GLUCOSE; Start 01/16/17 at 23:30 Potassium Chloride 250 ml @ 62.5 mls/hr Q4H IVPB ; Start 01/17/17 at 13:00; Stop 01/17/17 at 20:59 Piperacillin Sod/ Tazobactam Sod 50 ml @ 100 mls/hr Q8 IVPB ; Start 01/17/17 at 14:30 Vancomycin HCl (Vancocin) 250 ml @ 125 mls/hr NOW ONCE IVPB ; Start 01/17/17 at 15:00; Stop 01/17/17 at 16:59 ZANDRA ROBISON MD, [facility] Jan 17, 2017 15:32
[2017-01-17] MEDS: PIPER-TAZO 2.25 GM (PMX) 50 ML IVPB SCH ×2 (15:39→22:40)
--- NOTE | 2017-01-17 16:08 | CONS ---
Date/Time of Note Date/Time of Note DATE: 01/17/17 TIME: 15:36 Assessment/Plan Assessment/Plan Chief Complaint/Hosp Course Impression: 1. Renal failure. This patient is being seen by me today for a history of renal failure. The patient initially had a cardiac arrest at home on September 20, 2016. She came into the hospital and underwent a left heart catheterization with a stent placement. Subsequent to that event the patient developed acute renal failure and eventually required hemodialysis. The patient has been on hemodialysis for the last 2 months. She has been in a long-term facility and getting outpatient hemodialysis. Her renal function today shows a serum creatinine of 1.03. She is putting out some urine after a Rivas catheter was placed in the emergency room. It is possible that she has recovered renal function. She does seem fluid overloaded. I will hold hemodialysis for now and will try diuretics after her serum potassium is corrected . 2. Multiple medical problems including insulin-dependent diabetes mellitus, atherosclerotic heart disease with acute [place] and status post cardiac arrest with acute renal failure and anoxic encephalopathy, congestive heart failure, anemia of chronic disease, malnutrition, dysphagia requiring PEG placement urinary tract infection acute cholecystitis with drainage tube in place, peripheral vascular disease, history of her respiratory failure, history of acute cholecystitis with gallbladder drainage tube in place Plan: 1. I will hold off ordering hemodialysis for now. I will start the patient on a diuretics after her serum potassium is corrected . 2. Start Epogen 3. Monitor daily labs and renal function. 4. Agree with broad-spectrum antibiotics 5. I will follow the patient along with you. Problems: Consultation Date/Type/Reason Admit Date/Time 01/17/17 Date of Consultation: Jan 17, 2017 Type of Consultation: renal Referring Provider: SHAMA LOPEZ MD Hx of Present Illness This 72-year-old female is being seen by me because of renal failure. This patient was initially admitted here on September 20, 2016 after she had a cardiac arrest at home. She was brought into the hospital and underwent a left heart catheterization with stent placement. Subsequent to that the patient developed acute renal failure. The patient went on to significant renal failure requiring hemodialysis. The patient has been on hemodialysis for the past 2 months. She is getting outpatient hemodialysis at the [facility] unit . She was last dialyzed yesterday there in that dialysis unit. The patient was at a long-term facility and last night she developed severe abdominal pain and was brought to the emergency room. She was diagnosed with having a leaking percutaneous gastric feeding tube. The patient is now in the emergency room. She is awake but quite weak and somewhat lethargic. She does answer questions appropriately. She continues to have abdominal pain. The patient has had multiple medical problems. She was on dialysis because of fluid overload in addition to her decreased renal function. Her serum creatinine this morning was 1.03. A Rivas catheter was just placed and 280 cc of urine was obtained. She is lethargic and does have dysphagia. She has had a percutaneous gastric feeding tube. Eyes: no complaints ENT: no complaints Respiratory: no complaints Cardiovascular: no complaints Gastrointestinal: decreased appetite, pain Genitourinary: other Psychological: depression Past Medical History History of respiratory failure, atherosclerotic heart disease, status post acute OK with stent placement, cardiac arrest with acute renal failure and anoxic encephalopathy dysphagia requiring PEG placement type 2 diabetes mellitus Erica urinary tract infection, E. coli and enterococcus urinary tract infection, E. coli bacteremia, sludge in the gallbladder now with a drainage tube in the gallbladder, anasarca next, splenectomy Medical History: congestive heart failure, diabetes, GI bleed, high cholesterol , hypertension, renal disease, urinary tract infection Past Surgical History Past Surgical Hx: noncontributory, angioplasty Family History Significant Family History: no pertinent family hx Social History Alcohol Use: none Smoking Status: Unknown if ever smoked Drug Use: none Exam/Review of Systems Vital Signs Vitals Vital Signs Date Time Temp Pulse Resp B/P Pulse Ox O2 Delivery O2 Flow Rate FiO2 01/17/17 11:10 99.5 111 36 115/57 96 Nasal Cannula 3.0 Exam She has lower extremity bilateral gangrenous toes Constitutional: alert, frail, obese Head: normocephalic Respiratory: clear to auscultation, diminished breath sounds Cardiovascular: edema, regular rate and rhythm Gastrointestinal: distended, tender Extremities: edema Neurological: JET WIPER II-XII intact, lethargic Results Result Diagram: 01/17/17 1025 01/17/17 1025 Results 24 hrs Laboratory Tests Test 01/16/17 19:20 01/17/17 00:37 01/17/17 03:41 01/17/17 05:10 White Blood Count 25.1 #H 24.7 H Red Blood Count 3.93 L 3.13 #L Hemoglobin 11.0 L 8.7 #L Hematocrit 35.6 L 28.9 L Mean Corpuscular Volume 90.6 92.3 Mean Corpuscular Hemoglobin 28.0 L 27.8 L Mean Corpuscular Hemoglobin Concent 30.9 L 30.1 L Red Cell Distribution Width 18.2 H 18.6 H Platelet Count 417 #H 351 Mean Platelet Volume 9.5 9.5 Neutrophils % 69.0 84.0 H Band Neutrophils % 15.0 H Lymphocytes % 9.0 L 11.0 L Monocytes % 4.0 4.0 Eosinophils % 3.0 1.0 Nucleated Red Blood Cells % 1.0 H Neutrophils # 17.3 H 20.7 H Lymphocytes # 2.3 2.7 Monocytes # 1.0 H 1.0 H Eosinophils # 0.8 H 0.2 Prothrombin Time 12.8 13.6 Prothrombin Time Ratio 1.0 1.1 INR International Normalized Ratio 0.96 1.04 Activated Partial Thromboplast Time 24.8 L Sodium Level 124 L 126 L Potassium Level 3.0 L 3.2 L Chloride Level 91 L 99 Carbon Dioxide Level 31 25 Anion Gap 5 L 5 L Blood Urea Nitrogen 25 H 26 H Creatinine 0.81 0.87 Glucose Level 190 172 Calcium Level 8.8 7.4 L Total Bilirubin 0.1 L Direct Bilirubin 0.00 Indirect Bilirubin 0.1 Aspartate Amino Transf (AST/SGOT) 37 Alanine Aminotransferase (ALT/SGPT) 47 Alkaline Phosphatase 402 H Troponin I 0.016 Total Protein 6.9 Albumin 3.3 Globulin 3.60 H Albumin/Globulin Ratio 0.91 Amylase Level 95 Lipase 34 Lactic Acid Level 3.0 *H Bedside Glucose 207 Magnesium Level 1.9 Test 01/17/17 10:25 01/17/17 10:52 01/17/17 15:00 White Blood Count 28.0 H Red Blood Count 3.06 L Hemoglobin 8.4 L Hematocrit 28.4 L Mean Corpuscular Volume 92.8 Mean Corpuscular Hemoglobin 27.5 L Mean Corpuscular Hemoglobin Concent 29.6 L Red Cell Distribution Width 18.8 H Platelet Count 346 Mean Platelet Volume 9.7 Neutrophils % 83.7 H Lymphocytes % 10.9 L Monocytes % 3.8 Eosinophils % 0.1 Basophils % 0.1 Nucleated Red Blood Cells % 0.1 H Neutrophils # 23.5 H Lymphocytes # 3.1 H Monocytes # 1.1 H Eosinophils # 0.0 Basophils # 0.0 Nucleated Red Blood Cells # 0.0 Sodium Level 131 L Potassium Level 2.8 *L Chloride Level 101 Carbon Dioxide Level 26 Anion Gap 7 L Blood Urea Nitrogen 26 H Creatinine 1.03 H Glucose Level 144 Lactic Acid Level 2.2 *H Calcium Level 7.9 L Total Bilirubin 0.1 L Direct Bilirubin 0.00 Indirect Bilirubin 0.1 Aspartate Amino Transf (AST/SGOT) 33 Alanine Aminotransferase (ALT/SGPT) 43 Alkaline Phosphatase 296 H Total Protein 4.7 #L Albumin 2.1 #L Globulin 2.60 Albumin/Globulin Ratio 0.80 Bedside Glucose 151 Urine Color YELLOW Urine Clarity TURBID A Urine pH 7.0 Urine Specific [place] 1.012 Urine Ketones NEGATIVE Urine Nitrite NEGATIVE Urine Bilirubin NEGATIVE Urine Urobilinogen NEGATIVE Urine Leukocyte Esterase 3+ H Urine Microscopic RBC > 182 H Urine Microscopic WBC > 182 H Urine Squamous Epithelial Cells FEW Urine Bacteria MANY A Urine Hemoglobin 3+ H Urine Glucose NEGATIVE Urine Total Protein 2+ H Medications Medications Current Medications Metoprolol Tartrate (Lopressor) 2.5 mg BID IV ; Start 01/17/17 at 09:00 Miscellaneous Information 1 ea NOTE XX ; Start 01/16/17 at 23:30 Glucose (Glutose) 15 gm Q15M PRN PO DECREASED GLUCOSE; Start 01/16/17 at 23:30 Glucose (Glutose) 22.5 gm Q15M PRN PO DECREASED GLUCOSE; Start 01/16/17 at 23: 30 Dextrose (D50w Syringe) 25 ml Q15M PRN IV DECREASED GLUCOSE; Start 01/16/17 at 23:30 Dextrose (D50w Syringe) 50 ml Q15M PRN IV DECREASED GLUCOSE; Start 01/16/17 at 23:30 Glucagon (Glucagen) 1 mg Q15M PRN IM DECREASED GLUCOSE; Start 01/16/17 at 23:30 Glucose 15 gm 15 gm Q15M PRN BUCCAL DECREASED GLUCOSE; Start 01/16/17 at 23:30 Potassium Chloride 250 ml @ 62.5 mls/hr Q4H IVPB ; Start 01/17/17 at 13:00; Stop 01/17/17 at 20:59 Piperacillin Sod/ Tazobactam Sod 50 ml @ 100 mls/hr Q8 IVPB ; Start 01/17/17 at 14:30 Vancomycin HCl 250 ml @ 125 mls/hr NOW ONCE IVPB ; Start 01/17/17 at 15:00; Stop 01/17/17 at 16:59 Potassium Chloride/Sodium Chloride (KCl/NS) 110 ml @ 55 mls/hr ONCE ONCE IVPB ; Start 01/17/17 at 15:30; Stop 01/17/17 at 17:29 DAMIR MARTINEZ MD Jan 17, 2017 15:52
[2017-01-17 16:30] VITALS: BP 84/51; PULSE 110; RESP 16
[2017-01-17] MEDS ORDERED: LANT3I SC (16:56)
[2017-01-17] MEDS ORDERED: LATA2.5D2 BOTH EYES (16:56)
[2017-01-17] MEDS ORDERED: DORZ10DR6 BOTH EYES (16:56)
[2017-01-17 17:33] VITALS: PULSE 111
[2017-01-17] MEDS ORDERED: INSULIN ASPART [NOVOLOG] 3 ML PEN SC SCH (18:00)
[2017-01-17] MEDS ORDERED: FUROSEMIDE 40 MG INJ IV SCH (18:00)
[2017-01-17 18:19] VITALS: BP 116/57; PULSE 106
[2017-01-17 18:24] VITALS: Ht 165.1 cm; Wt 105.9 kg
--- NOTE | 2017-01-17 18:48 | CONS ---
Date/Time of Note Date/Time of Note DATE: 01/17/17 TIME: 18:47 Assessment/Plan Assessment/Plan Additional Assessment/Plan [facility] INPATIENT CONSULTATION NOTE DATE OF CONSULTATION: 01/17/2017 PLACE OF SERVICE: [facility] Emergency Department (patient boarding there as an inpatient waiting for bed availability) ASSESSMENT AND PLAN: A very pleasant but unfortunate 72-year-old lady, well- known to me from prior admission and my first visit with them in December 2016, currently admitted for abdominal pain which mostly appears to be from dislodged PEG tube with inflammation of the abdominal wall on the left side likely due to extravasation of tube feeds in this region. A second issue is possible partial obstruction of the percutaneous drain in the gallbladder as evidenced by the appearance of the gallbladder on the CT scanner. I certainly agree with the inpatient status of the patient and recommend that we address both the PEG tube as well as percutaneous transhepatic cholecystostomy drain during this admission. We can also take this opportunity to check patient's ability to swallow and see if we can increase her oral intake with the hopes of perhaps avoiding the need for further tube feeding in the stomach. I explained all of this in detail with the patient as well as her and discuss it with the care team and answered all questions. I believe that the patient and her appear to understand and agree with plans. With above assessment, I recommend the followin. Keep in-house 2. Consider gastroneurology consultation 3. Percutaneous cholecystostomy tube check with possible exchange/upsizing 4. Formal swallow evaluation with possible resumption of regular food intake if the patient passes her test 5. Continue physical therapy in-house 6. Check labs 7. Correct electrolytes and recheck 8. Follow with cultures (? Urinary tract infection) 9. Monitor for signs of sepsis since she is at high risk (elevated and rising white blood cell count) Thank you again for allowing us to participate in the care of this very pleasant lady and her wonderful family. If there are any questions, please feel free to contact me at [phone]. Please note that, given the extensive number of diagnoses or management options , the moderate to extensive amount and/or complexity of data needed to be reviewed, and I risk of complications and/or morbidity or mortality, this qualifies as high complexity type of decision-making. Disclaimer: Inadvertent spelling and grammatical errors are likely due to EHR/ dictation software use and do not reflect on the quality of delivered patient care. Also, please note that the electronic time recorded on this node does not necessarily reflect the actual time of the visit. Updated Clinical Summary: A very pleasant 71-year-old lady with multiple comorbid issues including BMI of 35.6 as well as what has been in the hospital since 09/2016 being found unresponsive and multiple issues including congestive heart failure, acute renal failure due to acute tubular necrosis requiring dialysis, urinary tract infection with bacteremia and multiple other issues, who was found to have possible signs of acute cholecystitis on recent imaging. D/c to [facility] ([place] ) 12/25/16. Readmitted to [facility] for abdominal wall pain on the left side on 01/16/2017. COMORBIDITIES: 1. BMI of 35.6. 2. Acute renal failure (ATN), on maintenance hemodialysis (Friday, , Friday). 3. Congestive heart failure. 4. Anemia. 5. Hypocalcemia. 6. Hypoalbuminemia and malnutrition. 7. Peripheral vascular disease with gangrene of toes of both feet. 8. Recent history of respiratory failure. 9. History of dysphagia requiring PEG placement and feedings. 10. Diabetes mellitus. 11. Leukocytosis from various sources. 12. Funguria with Erica glabrata and Erica albicans of the urine. 13. Escherichia coli and Enterococcus urinary tract infection 10/29/2016. 14. Escherichia coli bacteremia 12/02/2016 (x2 cultures). 15. Repeat culture of the urine 12/02/2016 with E. coli, enterococcus species and Klebsiella pneumoniae, extended-spectrum beta-lactamase. 16. Repeat bacteremia 12/08/2016 with Escherichia coli. 17. Urine positive for Erica albicans 12/11/2016. 18. Clostridium difficile colitis negative on a few stool samples. 19. Bilateral pleural effusions. 20. 2 mm calcified granuloma in the right lower lobe. 21. CT scan of abdomen and pelvis 12/13/2016 showing large amount of pericholecystic fluid with distention of the gallbladder, which could be of acute cholecystitis. 22. Tumefaction sludge, poorly visualized gallstones or soft tissue masses are suspected within the lumen of the distended gallbladder. 23. Anasarca. 24. Status post splenectomy. 25. A 2.8 cm left parapelvic cyst and an adjacent 1.4 cm simple cyst lateral upper portion of the lower third left kidney noted. 26. Atherosclerotic vascular disease. 27. Osteoarthritis of the thoracic and lumbosacral spine. 28. History of acute ST elevation myocardial infarction, inferior wall, status post code STEMI with stent placement, as well as temporary pacer wire. 29. Hyperlipidemia. 30. Possible aspiration pneumonia. 31. S/p CT-guided percutaneous transhepatic cholecystostomy drain placement 06/22, [facility] CONSULTATION REQUESTED BY: Jessica Castillo MD HISTORY OF PRESENT ILLNESS: The patient is a very pleasant but unfortunate 72- year-old lady, well-known to me from her prior admission and my first visit with them in December 2016, with multiple comorbid issues as outlined above and significantly prolonged hospital stay between September - December 2016 with various issues with congestive heart failure, urinary tract infection, bacteremia, respiratory failure, and many other issues, who was found to have acute cholecystitis and for this reason, I was initially kindly asked to consult regarding management of this issue. She improved after placement of percutaneous transhepatic cholecystostomy drain and eventually was discharged to SNF. I saw her in my office on 01/15/2017, at which time she did not have any major complaints and in fact, I was very happy about her overall outlook and progress. When she returns back to the intermediate, I received a call that she was complaining of more abdominal pain requiring pain medications. I recommended that the patient be transferred to the emergency department for further evaluation. After her CT scan demonstrated presence of the tip of the PEG tube in the abdominal wall and abdominal wall inflammation, she was admitted to the hospital for further cares and I was kindly asked to consult in the inpatient setting. I saw the patient in the emergency department since she was boarding there while waiting for a bed to become available on the hospital floor. During my visit, the patient reported no significant abdominal pain. She again did not have a strong voice and it was somewhat difficult to communicate with her, but she appeared to be understanding everything that I was saying to her. She did not report any active nausea or vomiting and did not have any other major complaints. Her PEG tube had already been removed by the time I visited with the patient. Her was also present during my visit and there were no other major complaints. ALLERGIES: SOY. MEDICATIONS: Documented in the electronic records and reviewed by me. Please see the electronic records for details, as well as details for inpatient medications which were also reviewed by me. SOCIAL HISTORY: The patient lives at a intermediate for recovery from a recent hospitalization and she has a very supportive family. 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 She normally lives with her and does not report any smoking , drinking, or intravenous drug use. FAMILY HISTORY: There is no mention of major medical, surgical or oncologic problems in the family. REVIEW OF SYSTEMS: Other than the above-mentioned, there are no other pertinent positives or pertinent negatives in a complete 14-point review of systems. PHYSICAL EXAMINATION: GENERAL: The patient appears to be a very pleasant lady of non- descent, appearing stated age or perhaps slightly older, lying in bed comfortably and in no acute distress. Her BMI is 32.0 (previously 35.10 December 2016). VITAL SIGNS: Temperature 99.5, blood pressure 115/57, pulse 111, respiratory rate 36, pulse oximetry 96% on 3 L nasal cannula. HEENT: Normocephalic and atraumatic. Extraocular muscles and hearing are grossly intact bilaterally and symmetrically. Sclerae are nonicteric. Oral cavity is clear; oral mucosa appeared to be pink and moist. Dentition: poor. NECK: Supple. There is no lymphadenopathy or JVD. There is no submental, submandibular or supraclavicular lymphadenopathy. CHEST: Rises symmetrically with each breath; patient is breathing comfortably. There are no audible wheezes, rales or rhonchi on the gross exam. HEART: Pulse is regular and tachycardic and palpable on the right wrist. Capillary refill was normal. Carotid pulses are palpable bilaterally and symmetrically in the neck. ABDOMEN: Soft, nondistended, and mildly tender to palpation in the right upper quadrant. There is a clean site of previous percutaneous gastrostomy tube in the left upper quadrant without any discharge. There is no evidence of organomegaly, caput medusae, engorged subcutaneous veins, or ascites. There are no peritoneal signs or guarding. The percutaneous cholecystostomy drain appears to have bilious/purulent fluid within the tubing and slight amount in the bag. EXTREMITIES: Show bilateral dry gangrene ulcers of the toes. There is no pitting edema around the ankles bilaterally and symmetrically. SKIN: Appears to be pink and feels warm to touch. NEUROLOGIC: Awake, alert, and follows commands appropriately. LABORATORY DATA: 01/17/2017: White blood cell count 28, hemoglobin 8.4, platelets 346. Sodium 131 , potassium 2.8, carbon dioxide 26, creatinine 1.03, lactic acid 2.2, total bilirubin 0.1, AST 33, ALT 43, alkaline phosphatase 296. Albumin 2.1. Admission amylase 95, admission lipase 34. INR 0.96. Urinalysis with 3+ leukocyte esterase but negative nitrite. Previous lab data: White blood cell count 9.8, which is normal compared to many days of elevated white count up to 47.4 on 12/03/2016, hemoglobin 10.3, platelets 323. Note that this is in the setting of overall 10 units of red blood cells transfused, as well as 4 units of thawed plasma. The latest transfusion was on 12/14/2016 and before that was 12/07/2016. Her electrolytes appear to be normal. Creatinine is 1.80. Total bilirubin 0.0, AST 68, ALT 44, alkaline phosphatase 204, lipase 27, amylase 49, albumin 2.7. INR 1.0. Stool occult was positive 12/07/2016 and negative prior to that. Hepatitis A immunoglobulin antibody was nonreactive, hepatitis B surface antigen and B core total antibody was also negative. Hepatitis C antibody was negative. IMAGING: CT of abdomen and pelvis 01/16/2017 at [facility] IMPRESSION: 1. Gastrostomy tube retracted from gastric lumen into left anterior abdominal subcutaneous tissues with marked subcutaneous and abdominal wall emphysematous changes present. 2. Cholecystostomy in a distended gallbladder with cholelithiasis present. 3. Moderate right pleural effusion and right lower lobe atelectasis or consolidation. 4. Mild cardiomegaly and atherosclerotic vascular disease 5. Markedly distended urinary bladder and correlate with urethral outlet obstruction. 6. Degenerative spondylosis of the imaged spine and osteopenia. Chest x-ray 01/17/2017 at [facility] IMPRESSION: 1. Again noted is right upper quadrant subcutaneous emphysema. Not significantly changed from prior examination. 2. Cholecystostomy tube in place. 3. Small to moderate right pleural effusion. Multiple previous images exist and I have reviewed the pertinent image findings of the recent abdominal and pelvic CT on 12/13/2016. There was also an ultrasound on 12/10/2016, the report of which mentions normal gallbladder without gallstones, but the review of the images dispute that report. Otherwise , I have reviewed all the available and pertinent images and I agree in general with their overall reported findings. Consultation Date/Type/Reason Admit Date/Time 01/17/17 Eyes: no complaints ENT: no complaints Respiratory: no complaints Cardiovascular: no complaints Gastrointestinal: decreased appetite, pain Genitourinary: other Psychological: depression Past Medical History Medical History: congestive heart failure, diabetes, GI bleed, high cholesterol , hypertension, renal disease, urinary tract infection Past Surgical History Past Surgical Hx: noncontributory, angioplasty Social History Alcohol Use: none Smoking Status: Unknown if ever smoked Drug Use: none Exam/Review of Systems Vital Signs Vitals Vital Signs Date Time Temp Pulse Resp B/P Pulse Ox O2 Delivery O2 Flow Rate FiO2 01/17/17 18:19 Nasal Cannula 2.0 01/17/17 18:19 106 116/57 01/17/17 16:30 98.1 16 94 Results Result Diagram: 01/17/17 1025 01/17/17 1025 Results 24 hrs Laboratory Tests Test 01/16/17 19:20 01/17/17 00:37 01/17/17 03:41 01/17/17 05:10 White Blood Count 25.1 #H 24.7 H Red Blood Count 3.93 L 3.13 #L Hemoglobin 11.0 L 8.7 #L Hematocrit 35.6 L 28.9 L Mean Corpuscular Volume 90.6 92.3 Mean Corpuscular Hemoglobin 28.0 L 27.8 L Mean Corpuscular Hemoglobin Concent 30.9 L 30.1 L Red Cell Distribution Width 18.2 H 18.6 H Platelet Count 417 #H 351 Mean Platelet Volume 9.5 9.5 Neutrophils % 69.0 84.0 H Band Neutrophils % 15.0 H Lymphocytes % 9.0 L 11.0 L Monocytes % 4.0 4.0 Eosinophils % 3.0 1.0 Nucleated Red Blood Cells % 1.0 H Neutrophils # 17.3 H 20.7 H Lymphocytes # 2.3 2.7 Monocytes # 1.0 H 1.0 H Eosinophils # 0.8 H 0.2 Prothrombin Time 12.8 13.6 Prothrombin Time Ratio 1.0 1.1 INR International Normalized Ratio 0.96 1.04 Activated Partial Thromboplast Time 24.8 L Sodium Level 124 L 135 Potassium Level 3.0 L 3.2 L Chloride Level 91 L 99 Carbon Dioxide Level 31 25 Anion Gap 5 L 14 # Blood Urea Nitrogen 25 H 26 H Creatinine 0.81 0.87 Glucose Level 190 172 Calcium Level 8.8 7.4 L Total Bilirubin 0.1 L Direct Bilirubin 0.00 Indirect Bilirubin 0.1 Aspartate Amino Transf (AST/SGOT) 37 Alanine Aminotransferase (ALT/SGPT) 47 Alkaline Phosphatase 402 H Troponin I 0.016 Total Protein 6.9 Albumin 3.3 Globulin 3.60 H Albumin/Globulin Ratio 0.91 Amylase Level 95 Lipase 34 Lactic Acid Level 3.0 *H Bedside Glucose 207 Magnesium Level 1.9 Test 01/17/17 10:25 01/17/17 10:52 01/17/17 15:00 01/17/17 18:04 White Blood Count 28.0 H Red Blood Count 3.06 L Hemoglobin 8.4 L Hematocrit 28.4 L Mean Corpuscular Volume 92.8 Mean Corpuscular Hemoglobin 27.5 L Mean Corpuscular Hemoglobin Concent 29.6 L Red Cell Distribution Width 18.8 H Platelet Count 346 Mean Platelet Volume 9.7 Neutrophils % 83.7 H Lymphocytes % 10.9 L Monocytes % 3.8 Eosinophils % 0.1 Basophils % 0.1 Nucleated Red Blood Cells % 0.1 H Neutrophils # 23.5 H Lymphocytes # 3.1 H Monocytes # 1.1 H Eosinophils # 0.0 Basophils # 0.0 Nucleated Red Blood Cells # 0.0 Sodium Level 131 L Potassium Level 2.8 *L Chloride Level 101 Carbon Dioxide Level 26 Anion Gap 7 L Blood Urea Nitrogen 26 H Creatinine 1.03 H Glucose Level 144 Lactic Acid Level 2.2 *H Calcium Level 7.9 L Total Bilirubin 0.1 L Direct Bilirubin 0.00 Indirect Bilirubin 0.1 Aspartate Amino Transf (AST/SGOT) 33 Alanine Aminotransferase (ALT/SGPT) 43 Alkaline Phosphatase 296 H Total Protein 4.7 #L Albumin 2.1 #L Globulin 2.60 Albumin/Globulin Ratio 0.80 Bedside Glucose 151 157 Urine Color YELLOW Urine Clarity TURBID A Urine pH 7.0 Urine Specific [place] 1.012 Urine Ketones NEGATIVE Urine Nitrite NEGATIVE Urine Bilirubin NEGATIVE Urine Urobilinogen NEGATIVE Urine Leukocyte Esterase 3+ H Urine Microscopic RBC > 182 H Urine Microscopic WBC > 182 H Urine Squamous Epithelial Cells FEW Urine Bacteria MANY A Urine Hemoglobin 3+ H Urine Glucose NEGATIVE Urine Total Protein 2+ H Medications Medications Current Medications Metoprolol Tartrate (Lopressor) 2.5 mg BID IV ; Start 01/17/17 at 09:00 Miscellaneous Information 1 ea NOTE XX ; Start 01/16/17 at 23:30 Glucose (Glutose) 15 gm Q15M PRN PO DECREASED GLUCOSE; Start 01/16/17 at 23:30 Glucose (Glutose) 22.5 gm Q15M PRN PO DECREASED GLUCOSE; Start 01/16/17 at 23: 30 Dextrose (D50w Syringe) 25 ml Q15M PRN IV DECREASED GLUCOSE; Start 01/16/17 at 23:30 Dextrose (D50w Syringe) 50 ml Q15M PRN IV DECREASED GLUCOSE; Start 01/16/17 at 23:30 Glucagon (Glucagen) 1 mg Q15M PRN IM DECREASED GLUCOSE; Start 01/16/17 at 23:30 Glucose 15 gm 15 gm Q15M PRN BUCCAL DECREASED GLUCOSE; Start 01/16/17 at 23:30 Potassium Chloride 250 ml @ 62.5 mls/hr Q4H IVPB ; Start 01/17/17 at 13:00; Stop 01/17/17 at 20:59 Piperacillin Sod/ Tazobactam Sod (Zosyn 2.25gm/ 50ml (Pmx)) 50 ml @ 100 mls/hr Q8 IVPB Last administered on 01/17/17 15:39; Admin Dose 100 MLS/HR; Start at 14:30 Furosemide (Lasix) 40 mg Q6 IV Last administered on 01/17/17 18:08; Admin Dose 40 MG; Start 01/17/17 at 18:00 Insulin Glargine (Lantus) 30 unit DAILY@08 SC ; Start 01/18/17 at 08:00 Diagnostic Test (Pha) (Accu-Chek) 1 ea 02 XX ; Start 01/18/17 at 02:00 Latanoprost (Xalatan) 1 drop HS BOTH EYES ; Start 01/17/17 at 21:00 SHANA ROSARIO M.D. Jan 17, 2017 18:48
[2017-01-17 20:00] VITALS: BP 117/58; RESP 17
[2017-01-17 20:16] VITALS: PULSE 106
[2017-01-17 20:34] LABS: CALCIUM 8.1 mg/dl (8.4-10.2); CREATININE 1.12 mg/dl (0.44-1.00); POTASSIUM 3.3 mmol/L (3.5-5.1)
[2017-01-17] MEDS: LATANOPROST 0.005% 2.5 ML OPH BOTH EYES SCH (21:00)
[2017-01-18] VITALS (11 sets, daily range): BP systolic 93–112; BP diastolic 46–55; PULSE 97–107; RESP 17–19
[2017-01-18] MEDS ORDERED: POTASSIUM CHLORIDE 20 MEQ in SOD CHLORIDE 0.9% 100 ML IVPB ONE (00:30)
[2017-01-18] MEDS ORDERED: ONDANSETRON 4 MG INJ IV PRN (00:30)
[2017-01-18] MEDS: INSULIN ASPART [NOVOLOG] 3 ML PEN SC SCH ×6 (01:00→21:00)
[2017-01-18] MEDS: ACCUCHECK AT 2AM (Patients on SS coverage) XX SCH (02:00)
[2017-01-18] MEDS: PIPER-TAZO 2.25 GM (PMX) 50 ML IVPB SCH ×3 (06:20→21:24)
[2017-01-18 06:31] LABS: ABNORMAL IP MESSAGE 1; ADD SCAN DIFF NO; HEMATOCRIT 27.2 % (37.0-47.0); MEAN CORPUSCULAR HEMOGLOBIN 27.4 pg (29.0-33.0); MEAN CORPUSCULAR HGB CONC 29.4 g/dl (32.0-37.0); MEAN CORPUSCULAR VOLUME 93.2 fl (82.0-101.0); MEAN PLATELET VOLUME 10.1 fl (7.4-10.4); PLATELET COUNT 340 10^3/UL (140-415); RED BLOOD COUNT 2.92 10^6/ul (4.20-5.40); RED CELL DISTRIBUTION WIDTH 19.3 % (11.5-14.5); WHITE BLOOD COUNT 21.9 10^3/ul (4.8-10.8)
[2017-01-18 07:14] LABS: ALBUMIN 2.4 g/dl (3.3-4.9); ALBUMIN/GLOBULIN RATIO 0.77; BILIRUBIN,INDIRECT 0.1 mg/dl (0-1.1); BILIRUBIN,TOTAL 0.1 mg/dl (0.2-1.3); CALCIUM 8.2 mg/dl (8.4-10.2); CREATININE 1.25 mg/dl (0.44-1.00); POTASSIUM 3.7 mmol/L (3.5-5.1); TOTAL PROTEIN 5.5 g/dl (6.1-8.1)
--- NOTE | 2017-01-18 07:29 | CONS ---
Date/Time of Note Date/Time of Note DATE: 01/18/17 TIME: :17 Assessment/Plan Assessment/Plan Chief Complaint/Hosp Course 1) SubQ emphysema due to dislodged g-tube culture the wound site and continue with vanco/zosyn 01/18 - g-tube wound cx is NGTD 2) choleycystitis pt has had a drain in place for this until she is ready for surgery will cx the fluid that is present 01/18 - [place] drain cx has growth but too young continue with vanco/zosyn CT showed distending GB and gallstones but no fluid around the GB 3) recent STEMI and hx of CABG 4) renal failure pt has very good creatinine but is still receiving dialysis she also has distended bladder by CT will get u/a and urine cx, nurse to straight cath vanco/zosyn should cover 5) sacral ulcer unable to see nurse to get picture 01/18 - no sign for infection according to notes 6) UTI 01/18 - pus is coming out from guevara urine cx is growing GNR continue with zosyn as WBC is decreasing 7) R pleural effusion with possible consolidation 01/18 - no phlegm production on vanco/zosyn at present will order nasal for MRSA pt to possibly get R thorancentesis Problems: Consultation Date/Type/Reason Admit Date/Time Jan 16, 2017 at 22:45 Initial Consult Date 01/17/17 Type of Consultation: ID Referring Provider: SHAMA LOPEZ MD 24 HR Interval Summary Free Text/Dictation pt awake but is not speaking words today just mouthing words no V, D urine output present but not being recorded, unclear how much urine was recovered when guevara was placed no SOB still has abd pain Exam/Review of Systems Vital Signs Vitals Vital Signs Date Time Temp Pulse Resp B/P Pulse Ox O2 Delivery O2 Flow Rate FiO2 01/18/17 07:03 99.0 102 18 101/55 97 01/17/17 20:36 2.0 01/17/17 18:19 Nasal Cannula Intake and Output 01/17/17 01/17/17 01/18/17 15:00 23:00 07:00 Intake Total 1900 ml 260 ml Output Total 25 ml Balance 1900 ml 235 ml Exam Constitutional: alert Eyes: nl sclera ENMT: mucosa pink and moist Respiratory: clear to auscultation Cardiovascular: regular rate and rhythm Gastrointestinal: distended, other (no redness around the prior g-tube site, lawrence drain still present), tender Extremities: other (skin tears on arms, sacral area only stage 1) Results Result Diagram: 01/18/17 0525 01/17/17 1938 Results 24 hrs Laboratory Tests Test 01/17/17 10:25 01/17/17 10:52 01/17/17 15:00 01/17/17 18:04 White Blood Count 28.0 H Red Blood Count 3.06 L Hemoglobin 8.4 L Hematocrit 28.4 L Mean Corpuscular Volume 92.8 Mean Corpuscular Hemoglobin 27.5 L Mean Corpuscular Hemoglobin Concent 29.6 L Red Cell Distribution Width 18.8 H Platelet Count 346 Mean Platelet Volume 9.7 Neutrophils % 83.7 H Lymphocytes % 10.9 L Monocytes % 3.8 Eosinophils % 0.1 Basophils % 0.1 Nucleated Red Blood Cells % 0.1 H Neutrophils # 23.5 H Lymphocytes # 3.1 H Monocytes # 1.1 H Eosinophils # 0.0 Basophils # 0.0 Nucleated Red Blood Cells # 0.0 Sodium Level 131 L Potassium Level 2.8 *L Chloride Level 101 Carbon Dioxide Level 26 Anion Gap 7 L Blood Urea Nitrogen 26 H Creatinine 1.03 H Glucose Level 144 Lactic Acid Level 2.2 *H Calcium Level 7.9 L Total Bilirubin 0.1 L Direct Bilirubin 0.00 Indirect Bilirubin 0.1 Aspartate Amino Transf (AST/SGOT) 33 Alanine Aminotransferase (ALT/SGPT) 43 Alkaline Phosphatase 296 H Total Protein 4.7 #L Albumin 2.1 #L Globulin 2.60 Albumin/Globulin Ratio 0.80 Bedside Glucose 151 157 Urine Color YELLOW Urine Clarity TURBID A Urine pH 7.0 Urine Specific [place] 1.012 Urine Ketones NEGATIVE Urine Nitrite NEGATIVE Urine Bilirubin NEGATIVE Urine Urobilinogen NEGATIVE Urine Leukocyte Esterase 3+ H Urine Microscopic RBC > 182 H Urine Microscopic WBC > 182 H Urine Squamous Epithelial Cells FEW Urine Bacteria MANY A Urine Hemoglobin 3+ H Urine Glucose NEGATIVE Urine Total Protein 2+ H Test 01/17/17 19:05 01/17/17 19:38 01/17/17 22:46 01/18/17 05:25 Bedside Glucose 151 153 Sodium Level 137 Potassium Level 3.3 L Chloride Level 98 Carbon Dioxide Level 28 Anion Gap 14 # Blood Urea Nitrogen 28 H Creatinine 1.12 H Glucose Level 146 Calcium Level 8.1 L White Blood Count 21.9 #H Red Blood Count 2.92 L Hemoglobin 8.0 L Hematocrit 27.2 L Mean Corpuscular Volume 93.2 Mean Corpuscular Hemoglobin 27.4 L Mean Corpuscular Hemoglobin Concent 29.4 L Red Cell Distribution Width 19.3 H Platelet Count 340 Mean Platelet Volume 10.1 Neutrophils % Eosinophils % Neutrophils # Eosinophils # Test 01/18/17 06:24 Bedside Glucose 161 Medications Medications Current Medications Metoprolol Tartrate (Lopressor) 2.5 mg BID IV ; Start 01/17/17 at 09:00 Miscellaneous Information 1 ea NOTE XX ; Start 01/16/17 at 23:30 Glucose (Glutose) 15 gm Q15M PRN PO DECREASED GLUCOSE; Start 01/16/17 at 23:30 Glucose (Glutose) 22.5 gm Q15M PRN PO DECREASED GLUCOSE; Start 01/16/17 at 23: 30 Dextrose (D50w Syringe) 25 ml Q15M PRN IV DECREASED GLUCOSE; Start 01/16/17 at 23:30 Dextrose (D50w Syringe) 50 ml Q15M PRN IV DECREASED GLUCOSE; Start 01/16/17 at 23:30 Glucagon (Glucagen) 1 mg Q15M PRN IM DECREASED GLUCOSE; Start 01/16/17 at 23:30 Glucose 15 gm 15 gm Q15M PRN BUCCAL DECREASED GLUCOSE; Start 01/16/17 at 23:30 Piperacillin Sod/ Tazobactam Sod (Zosyn 2.25gm/ 50ml (Pmx)) 50 ml @ 100 mls/hr Q8 IVPB Last administered on 01/18/17t 06:20; Admin Dose 100 MLS/HR; Start at 14:30 Insulin Glargine (Lantus) 30 unit DAILY@08 SC ; Start 01/18/17 at 08:00 Diagnostic Test (Pha) (Accu-Chek) 1 ea 02 XX ; Start 01/18/17 at 02:00 Latanoprost (Xalatan) 1 drop HS BOTH EYES Last administered on 01/17/17 21:00 ; Admin Dose 1 DROP; Start 01/17/17 at 21:00 Insulin Aspart (Novolog Insulin Pen) NOVOLOG *MILD* ALGORI... Q4 SC ; Start at 21:00 Epoetin Raj (Epogen (Esrd)) 10,000 units TuThSa@17 SC ; Start 01/18/17 at 17:00 Ondansetron HCl (Zofran Inj) 4 mg Q6H PRN IV NAUSEA AND/OR VOMITING; Start at 00:30 TR GOODEN MD Jan 18, 2017 07:28
[2017-01-18] MEDS ORDERED: PENDING SANTYL ORDER FOR WOUND CARE XX PRN ×2 (08:30→15:00)
--- NOTE | 2017-01-18 08:43 | RADRPT ---
PROCEDURE: XR Chest 1 View. CLINICAL INDICATION: Shortness of breath. TECHNIQUE: AP view of the chest was obtained. COMPARISON: December 20, 2016 FINDINGS: Heart is large. Right-sided dialysis catheter has its tip in the expected location of the distal sup erior vena cava. Central pulmonary vascular congestion and interstitial prominence is seen in both lungs. Infiltrates are seen throughout the right lung and/or combined with moderate pleural effusio n. Retrocardiac left lower lobe atelectasis versus mild infiltrates are observed. Osseous structure s are intact. IMPRESSION: Cardiomegaly. Central pulmonary vascular congestion and interstitial prominence in both lungs. Infiltrates throughout the right lung, combined with moderate pleural effusion. Atelectasis versus mild infiltrates in the retrocardiac left lower lobe. RPTAT: AA .Ovidio Otoole MD, Date Time Electronically viewed and signed by .Ovidio Otoole MD, on 01/18/2017 08:43 .P/
[2017-01-18] MEDS: INSULIN GLARGINE [LANtus] 3 ML PEN SC SCH (08:52)
[2017-01-18] MEDS: METOPROLOL 5 MG INJ IV SCH ×2 (08:58→21:25)
--- NOTE | 2017-01-18 11:02 | PN ---
Date/Time of Note Date/Time of Note DATE: 01/18/17 TIME: 10:46 Assessment/Plan Lines/Catheters IV Catheter Type (from Nrs): DIALYSIS CATH Urinary Cath still in place: Yes Assessment/Plan Assessment/Plan gi- awaiting consult for replacement of g-tube. pt not appear to be able to take po nutrition appropriately. 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 dr lopez notified. -id following and pt on vanco/zosyn renal- pt producing some urine. renal following and questioning if functionality has improved. fluid overloaded, being diuresed. dialysis currently on hold and watching the bun and cr. cr increased 1.0 to 1.2. last shift u.o 200cc. epogen given. pulm has a right lung infiltrate and mod effusion. pulm following and plans for tap. pt on zosyn/vanco. dm- on lower dose lantis while pt not getting po intake. accu checks mild high. on sliding scale. will add d5 to ivf if becomes low. cv- h/o arrest, stent ME, cards following. b-danyel restarted. pulse lower from 111 to 104 cholecystostomy- surg following and possible change of drain. anemia- discussed with renal if transfusion is necessary. pt given epogen. renal to watch. Subjective 24 Hr Interval Summary Free Text/Dictation unable to find h&p dictated on 01/18. pt more sedated, resting comfortable. she does not give the appearance of being able to eat. gi still pending. wbc better still febrile. Exam/Review of Systems Vital Signs Vitals Vital Signs Date Time Temp Pulse Resp B/P Pulse Ox O2 Delivery O2 Flow Rate FiO2 01/18/17 08:58 Nasal Cannula 2.0 01/18/17 08:27 104 01/18/17 07:16 98 01/18/17 07:03 99.0 18 101/55 Intake and Output 01/17/17 01/17/17 01/18/17 15:00 23:00 07:00 Intake Total 1900 ml 260 ml Output Total 225 ml 50 ml Balance 1900 ml 35 ml -50 ml Exam swelling diffusely ue and le. purpura over the UE L>R. lungs cta, normal rate cv rrr Results Result Diagram: 01/18/17 0525 01/18/17 0525 Results 24 hrs Laboratory Tests Test 01/17/17 10:52 01/17/17 15:00 01/17/17 18:04 01/17/17 19:05 Bedside Glucose 151 157 151 Urine Color YELLOW Urine Clarity TURBID A Urine pH 7.0 Urine Specific [place] 1.012 Urine Ketones NEGATIVE Urine Nitrite NEGATIVE Urine Bilirubin NEGATIVE Urine Urobilinogen NEGATIVE Urine Leukocyte Esterase 3+ H Urine Microscopic RBC > 182 H Urine Microscopic WBC > 182 H Urine Squamous Epithelial Cells FEW Urine Bacteria MANY A Urine Hemoglobin 3+ H Urine Glucose NEGATIVE Urine Total Protein 2+ H Test 01/17/17 19:38 01/17/17 22:46 01/18/17 05:25 01/18/17 05:28 Sodium Level 137 138 Potassium Level 3.3 L 3.7 Chloride Level 98 99 Carbon Dioxide Level 28 26 Anion Gap 14 # 17 H Blood Urea Nitrogen 28 H 32 H Creatinine 1.12 H 1.25 H Glucose Level 146 147 Calcium Level 8.1 L 8.2 L Bedside Glucose 153 White Blood Count 21.9 #H Red Blood Count 2.92 L Hemoglobin 8.0 L Hematocrit 27.2 L Mean Corpuscular Volume 93.2 Mean Corpuscular Hemoglobin 27.4 L Mean Corpuscular Hemoglobin Concent 29.4 L Red Cell Distribution Width 19.3 H Platelet Count 340 Mean Platelet Volume 10.1 Neutrophils % Eosinophils % Neutrophils # Eosinophils # Hemoglobin A1c 7.2 H Total Bilirubin 0.1 L Direct Bilirubin 0.00 Indirect Bilirubin 0.1 Aspartate Amino Transf (AST/SGOT) 29 Alanine Aminotransferase (ALT/SGPT) 38 Alkaline Phosphatase 285 H Total Protein 5.5 L Albumin 2.4 L Globulin 3.10 Albumin/Globulin Ratio 0.77 Phosphorus Level 3.1 Test 01/18/17 06:24 01/18/17 08:47 Bedside Glucose 161 186 Medications Medications Current Medications Metoprolol Tartrate (Lopressor) 2.5 mg BID IV Last administered on 01/18/17t 08 :58; Admin Dose 2.5 MG; Start 01/17/17 at 09:00 Miscellaneous Information 1 ea NOTE XX ; Start 01/16/17 at 23:30 Glucose (Glutose) 15 gm Q15M PRN PO DECREASED GLUCOSE; Start 01/16/17 at 23:30 Glucose (Glutose) 22.5 gm Q15M PRN PO DECREASED GLUCOSE; Start 01/16/17 at 23: 30 Dextrose (D50w Syringe) 25 ml Q15M PRN IV DECREASED GLUCOSE; Start 01/16/17 at 23:30 Dextrose (D50w Syringe) 50 ml Q15M PRN IV DECREASED GLUCOSE; Start 01/16/17 at 23:30 Glucagon (Glucagen) 1 mg Q15M PRN IM DECREASED GLUCOSE; Start 01/16/17 at 23:30 Glucose 15 gm 15 gm Q15M PRN BUCCAL DECREASED GLUCOSE; Start 01/16/17 at 23:30 Piperacillin Sod/ Tazobactam Sod (Zosyn 2.25gm/ 50ml (Pmx)) 50 ml @ 100 mls/hr Q8 IVPB Last administered on 01/18/17 06:20; Admin Dose 100 MLS/HR; Start at 14:30 Insulin Glargine (Lantus) 30 unit DAILY@08 SC Last administered on 01/18/17 08 :52; Admin Dose 30 UNIT; Start 01/18/17 at 08:00 Diagnostic Test (Pha) (Accu-Chek) 1 ea 02 XX ; Start 01/18/17 at 02:00 Latanoprost (Xalatan) 1 drop HS BOTH EYES Last administered on 01/17/17 21:00 ; Admin Dose 1 DROP; Start 01/17/17 at 21:00 Insulin Aspart (Novolog Insulin Pen) NOVOLOG *MILD* ALGORI... Q4 SC Last administered on 01/18/17 08:52; Admin Dose 2 UNIT; Start 01/17/17 at 21:00 Epoetin Raj (Epogen (Esrd)) 10,000 units TuThSa@17 SC ; Start 01/18/17 at 17:00 Ondansetron HCl (Zofran Inj) 4 mg Q6H PRN IV NAUSEA AND/OR VOMITING; Start at 00:30 Miscellaneous Information (Pending [facility] Order For Wound Care) This patient le... PRN PRN XX WOUND CARE; Start 01/18/17 at 08:30 SHAW SRINIVASAN MD Jan 18, 2017 11:01
[2017-01-18 11:35] LABS: LYMPHOCYTES # 2.6 10^3/ul (0.8-2.9); MONOCYTE # 0.4 10^3/ul (0.3-0.9); MYELOCYTES # 0.2
[2017-01-18 11:36] LABS: POLYCHROMASIA 1+
--- NOTE | 2017-01-18 11:52 | CONS ---
Date/Time of Note Date/Time of Note DATE: 01/18/17 TIME: 11:43 Assessment/Plan Assessment/Plan Problems: (1) Edema (2) Gangrene Status: Chronic (3) PAD (peripheral artery disease) Status: Chronic (4) Acute on chronic renal failure Status: Chronic (5) Sepsis (6) Abdominal pain (7) Anemia in ESRD (end-stage renal disease) (8) ESRD (end stage renal disease) on dialysis (9) Cholecystitis (10) Gastrostomy site leak Status: Acute (11) Intractable abdominal pain Status: Acute Additional Assessment/Plan Extensive medical problem G tube malfuction plan for repeat speech and swallow right now she is on IV BB low dose her BP is hanging in to 100s systolic which is fine clinically doesnt look spetic surgery, GI on case Pt will be Off DAPT as she may need major surgery vs revision of her G tube. d./w and risk and benefit of surgical , GI procedure associated with cardiac risk has been explained. I would repeat echo to confirm recent cardiac function. will /fu Consultation Date/Type/Reason Admit Date/Time Jan 16, 2017 at 22:45 Date of Consultation: Jan 18, 2017 Type of Consultation: Intven and Endovasc Cardiology Reason for Consultation Pre Op. CAD, PAD Hx of Present Illness Patient is 72 year old F who presented with STEMI RCA s/p PCI, september 2016:, complicated hospital course with HD, bad bound, G tube placement, likely cholesterol emboli in leg with gangrene yina, who came back yesterday with possible G tube malfuctnion. pt doest have any G tube at this time. pt is unable to comunicate but shakes her head with question yes or no. no pain or chest pain. other coronary were normal. Recent LVEF is normal. Nephro was on case since beginning. Eyes: no complaints ENT: no complaints Respiratory: no complaints Cardiovascular: no complaints Gastrointestinal: decreased appetite, pain Genitourinary: other Psychological: depression Past Medical History Medical History: congestive heart failure, diabetes, GI bleed, high cholesterol , hypertension, renal disease, urinary tract infection Past Surgical History Past Surgical Hx: noncontributory, angioplasty Social History Alcohol Use: none Smoking Status: Unknown if ever smoked Drug Use: none Exam/Review of Systems Vital Signs Vitals Vital Signs Date Time Temp Pulse Resp B/P Pulse Ox O2 Delivery O2 Flow Rate FiO2 01/18/17 11:05 99.3 99 19 95/48 97 01/18/17 08:58 Nasal Cannula 2.0 Intake and Output 01/17/17 01/17/17 01/18/17 15:00 23:00 07:00 Intake Total 1900 ml 260 ml Output Total 225 ml 50 ml Balance 1900 ml 35 ml -50 ml Exam Constitutional: alert, oriented Psych: no complaints Head: normocephalic Eyes: nl conjunctiva ENMT: nl external ears & nose Neck: supple Respiratory: clear to auscultation Cardiovascular: regular rate and rhythm Gastrointestinal: soft Musculoskeletal: swelling Results Result Diagram: 01/18/17 0525 01/18/17 0525 Results 24 hrs Laboratory Tests Test 01/17/17 15:00 01/17/17 18:04 01/17/17 19:05 01/17/17 19:38 Urine Color YELLOW Urine Clarity TURBID A Urine pH 7.0 Urine Specific [place] 1.012 Urine Ketones NEGATIVE Urine Nitrite NEGATIVE Urine Bilirubin NEGATIVE Urine Urobilinogen NEGATIVE Urine Leukocyte Esterase 3+ H Urine Microscopic RBC > 182 H Urine Microscopic WBC > 182 H Urine Squamous Epithelial Cells FEW Urine Bacteria MANY A Urine Hemoglobin 3+ H Urine Glucose NEGATIVE Urine Total Protein 2+ H Bedside Glucose 157 151 Sodium Level 137 Potassium Level 3.3 L Chloride Level 98 Carbon Dioxide Level 28 Anion Gap 14 # Blood Urea Nitrogen 28 H Creatinine 1.12 H Glucose Level 146 Calcium Level 8.1 L Test 01/17/17 22:46 01/18/17 05:25 01/18/17 05:28 01/18/17 06:24 Bedside Glucose 153 161 White Blood Count 21.9 #H Red Blood Count 2.92 L Hemoglobin 8.0 L Hematocrit 27.2 L Mean Corpuscular Volume 93.2 Mean Corpuscular Hemoglobin 27.4 L Mean Corpuscular Hemoglobin Concent 29.4 L Red Cell Distribution Width 19.3 H Platelet Count 340 Mean Platelet Volume 10.1 Neutrophils % 55.0 Band Neutrophils % 29.0 H Lymphocytes % 12.0 L Monocytes % 2.0 Eosinophils % Metamyelocytes % 1.0 H Myelocytes % 1.0 H Neutrophils # 12.0 H Lymphocytes # 2.6 Monocytes # 0.4 Eosinophils # Metamyelocytes # 0.2 Myelocytes # 0.2 Polychromasia 1+ Basophilic Stippling OCCASIONAL Sodium Level 138 Potassium Level 3.7 Chloride Level 99 Carbon Dioxide Level 26 Anion Gap 17 H Blood Urea Nitrogen 32 H Creatinine 1.25 H Glucose Level 147 Hemoglobin A1c 7.2 H Calcium Level 8.2 L Total Bilirubin 0.1 L Direct Bilirubin 0.00 Indirect Bilirubin 0.1 Aspartate Amino Transf (AST/SGOT) 29 Alanine Aminotransferase (ALT/SGPT) 38 Alkaline Phosphatase 285 H Total Protein 5.5 L Albumin 2.4 L Globulin 3.10 Albumin/Globulin Ratio 0.77 Phosphorus Level 3.1 Test 01/18/17 08:47 Bedside Glucose 186 Medications Medications Current Medications Metoprolol Tartrate (Lopressor) 2.5 mg BID IV Last administered on 01/18/17 08 :58; Admin Dose 2.5 MG; Start 01/17/17 at 09:00 Miscellaneous Information 1 ea NOTE XX ; Start 01/16/17 at 23:30 Glucose (Glutose) 15 gm Q15M PRN PO DECREASED GLUCOSE; Start 01/16/17 at 23:30 Glucose (Glutose) 22.5 gm Q15M PRN PO DECREASED GLUCOSE; Start 01/16/17 at 23: 30 Dextrose (D50w Syringe) 25 ml Q15M PRN IV DECREASED GLUCOSE; Start 01/16/17 at 23:30 Dextrose (D50w Syringe) 50 ml Q15M PRN IV DECREASED GLUCOSE; Start 01/16/17 at 23:30 Glucagon (Glucagen) 1 mg Q15M PRN IM DECREASED GLUCOSE; Start 01/16/17 at 23:30 Glucose 15 gm 15 gm Q15M PRN BUCCAL DECREASED GLUCOSE; Start 01/16/17 at 23:30 Piperacillin Sod/ Tazobactam Sod (Zosyn 2.25gm/ 50ml (Pmx)) 50 ml @ 100 mls/hr Q8 IVPB Last administered on 01/18/17 06:20; Admin Dose 100 MLS/HR; Start at 14:30 Insulin Glargine (Lantus) 30 unit DAILY@08 SC Last administered on 01/18/17 08 :52; Admin Dose 30 UNIT; Start 01/18/17 at 08:00 Diagnostic Test (Pha) (Accu-Chek) 1 ea 02 XX ; Start 01/18/17 at 02:00 Latanoprost (Xalatan) 1 drop HS BOTH EYES Last administered on 01/17/17 21:00 ; Admin Dose 1 DROP; Start 01/17/17 at 21:00 Insulin Aspart (Novolog Insulin Pen) NOVOLOG *MILD* ALGORI... Q4 SC Last administered on 01/18/17 08:52; Admin Dose 2 UNIT; Start 01/17/17 at 21:00 Epoetin Raj (Epogen (Esrd)) 10,000 units TuThSa@17 SC ; Start 01/18/17 at 17:00 Ondansetron HCl (Zofran Inj) 4 mg Q6H PRN IV NAUSEA AND/OR VOMITING; Start at 00:30 Miscellaneous Information (Pending [facility] Order For Wound Care) This patient le... PRN PRN XX WOUND CARE; Start 01/18/17 at 08:30 VIRGINIE JUARES MD Jan 18, 2017 11:52
--- NOTE | 2017-01-18 12:53 | CONS ---
Date/Time of Note Date/Time of Note DATE: 01/18/17 TIME: 12:52 Consult Date/Type/Reason Admit Date/Time Jan 16, 2017 at 22:45 Initial Consult Date 01/18/17 Type of Consultation: Pulmonary Ordering Provider: SHAMA LOPEZ MD Subjective Appears comfortable this morning Objective Vital Signs Date Time Temp Pulse Resp B/P Pulse Ox O2 Delivery O2 Flow Rate FiO2 01/18/17 12:40 97 01/18/17 11:05 99.3 19 95/48 97 01/18/17 08:58 Nasal Cannula 2.0 Intake and Output 01/17/17 01/17/17 01/18/17 15:00 23:00 07:00 Intake Total 1900 ml 260 ml Output Total 225 ml 50 ml Balance 1900 ml 35 ml -50 ml Exam GENERAL: Chronically ill-appearing lady comfortable at rest no acute distress VITAL SIGNS: per chart NECK: Supple. No JVD or lymphadenopathy. CARDIAC EXAM: S1, S2. No added sounds or murmurs. CHEST: Diminished air entry both lung [place] poor inspiratory effort ABDOMEN: Soft, nontender. No guarding or rebound. EXTREMITIES: No cyanosis, clubbing edema +2 NEUROLOGIC: Generalized weakness. Results/Medications Result Diagram: 01/18/17 0525 01/18/17 0525 Results 24 hrs Laboratory Tests Test 01/17/17 15:00 01/17/17 18:04 01/17/17 19:05 01/17/17 19:38 Urine Color YELLOW Urine Clarity TURBID A Urine pH 7.0 Urine Specific [place] 1.012 Urine Ketones NEGATIVE Urine Nitrite NEGATIVE Urine Bilirubin NEGATIVE Urine Urobilinogen NEGATIVE Urine Leukocyte Esterase 3+ H Urine Microscopic RBC > 182 H Urine Microscopic WBC > 182 H Urine Squamous Epithelial Cells FEW Urine Bacteria MANY A Urine Hemoglobin 3+ H Urine Glucose NEGATIVE Urine Total Protein 2+ H Bedside Glucose 157 151 Sodium Level 137 Potassium Level 3.3 L Chloride Level 98 Carbon Dioxide Level 28 Anion Gap 14 # Blood Urea Nitrogen 28 H Creatinine 1.12 H Glucose Level 146 Calcium Level 8.1 L Test 01/17/17 22:46 01/18/17 05:25 01/18/17 05:28 01/18/17 06:24 Bedside Glucose 153 161 White Blood Count 21.9 #H Red Blood Count 2.92 L Hemoglobin 8.0 L Hematocrit 27.2 L Mean Corpuscular Volume 93.2 Mean Corpuscular Hemoglobin 27.4 L Mean Corpuscular Hemoglobin Concent 29.4 L Red Cell Distribution Width 19.3 H Platelet Count 340 Mean Platelet Volume 10.1 Neutrophils % 55.0 Band Neutrophils % 29.0 H Lymphocytes % 12.0 L Monocytes % 2.0 Eosinophils % Metamyelocytes % 1.0 H Myelocytes % 1.0 H Neutrophils # 12.0 H Lymphocytes # 2.6 Monocytes # 0.4 Eosinophils # Metamyelocytes # 0.2 Myelocytes # 0.2 Polychromasia 1+ Basophilic Stippling OCCASIONAL Sodium Level 138 Potassium Level 3.7 Chloride Level 99 Carbon Dioxide Level 26 Anion Gap 17 H Blood Urea Nitrogen 32 H Creatinine 1.25 H Glucose Level 147 Hemoglobin A1c 7.2 H Calcium Level 8.2 L Total Bilirubin 0.1 L Direct Bilirubin 0.00 Indirect Bilirubin 0.1 Aspartate Amino Transf (AST/SGOT) 29 Alanine Aminotransferase (ALT/SGPT) 38 Alkaline Phosphatase 285 H Total Protein 5.5 L Albumin 2.4 L Globulin 3.10 Albumin/Globulin Ratio 0.77 Phosphorus Level 3.1 Test 01/18/17 08:47 01/18/17 12:41 Bedside Glucose 186 154 Medications Current Medications Metoprolol Tartrate (Lopressor) 2.5 mg BID IV Last administered on 01/18/17t 08 :58; Admin Dose 2.5 MG; Start 01/17/17 at 09:00 Miscellaneous Information 1 ea NOTE XX ; Start 01/16/17 at 23:30 Glucose (Glutose) 15 gm Q15M PRN PO DECREASED GLUCOSE; Start 01/16/17 at 23:30 Glucose (Glutose) 22.5 gm Q15M PRN PO DECREASED GLUCOSE; Start 01/16/17 at 23: 30 Dextrose (D50w Syringe) 25 ml Q15M PRN IV DECREASED GLUCOSE; Start 01/16/17 at 23:30 Dextrose (D50w Syringe) 50 ml Q15M PRN IV DECREASED GLUCOSE; Start 01/16/17 at 23:30 Glucagon (Glucagen) 1 mg Q15M PRN IM DECREASED GLUCOSE; Start 01/16/17 at 23:30 Glucose 15 gm 15 gm Q15M PRN BUCCAL DECREASED GLUCOSE; Start 01/16/17 at 23:30 Piperacillin Sod/ Tazobactam Sod (Zosyn 2.25gm/ 50ml (Pmx)) 50 ml @ 100 mls/hr Q8 IVPB Last administered on 01/18/17 06:20; Admin Dose 100 MLS/HR; Start at 14:30 Insulin Glargine (Lantus) 30 unit DAILY@08 SC Last administered on 01/18/17 08 :52; Admin Dose 30 UNIT; Start 01/18/17 at 08:00 Diagnostic Test (Pha) (Accu-Chek) 1 ea 02 XX ; Start 01/18/17 at 02:00 Latanoprost (Xalatan) 1 drop HS BOTH EYES Last administered on 01/17/17 21:00 ; Admin Dose 1 DROP; Start 01/17/17 at 21:00 Insulin Aspart (Novolog Insulin Pen) NOVOLOG *MILD* ALGORI... Q4 SC Last administered on 01/18/17 12:44; Admin Dose 1 UNIT; Start 01/17/17 at 21:00 Epoetin Raj (Epogen (Esrd)) 10,000 units TuThSa@17 SC ; Start 01/18/17 at 17:00 Ondansetron HCl (Zofran Inj) 4 mg Q6H PRN IV NAUSEA AND/OR VOMITING; Start at 00:30 Miscellaneous Information (Pending [facility] Order For Wound Care) This patient le... PRN PRN XX WOUND CARE; Start 01/18/17 at 08:30 Assessment/Plan Chief Complaint/Hosp Course Switch assessment 1. Severe sepsis likely polymicrobial 2. Large right pleural effusion likely secondary to low oncotic pressure, third spacing of fluid into pleural space. 3. End-stage renal failure on hemodialysis 4. History ST elevation PA 5. Recent recurrent hypoxemic respiratory failure 6. Dysphagia with G-tube Plan 1. Broad-spectrum antibiotics per infectious diseases 2. Supplemental O2 as needed 3. Wound care 4. Thoracentesis with pleural fluid studies Problems: ZANDRA ROBISON MD, [facility] Jan 18, 2017 12:53
[2017-01-18] MEDS ORDERED: IOHEXOL 300MG/ML 30 ML BTL ONE (13:24)
[2017-01-18] MEDS ORDERED: LIDOCAINE 1% (MDV) 20 ML INJ ONE (13:24)
[2017-01-18] MEDS ORDERED: LIDOCAINE 1% (MPF) 5 ML VIAL ONE (14:15)
--- NOTE | 2017-01-18 14:33 | RADRPT ---
PROCEDURE: US guided right thoracentesis. CLINICAL INDICATION: Shortness of breath. Right pleural effusion. TECHNIQUE: Prior to the procedure, informed consent was obtained. The risks, benefits, and alternatives were e xplained to the patient or the patient's family, including but not limited to bleeding, infection, p ain, visceral or vascular damage, shock, pneumothorax, chest tube placement, air embolism, and . The patient or the patient's family understood the risks and the alternatives and wished to proce ed with the study. Informed written consent was obtained. A procedural pause was performed. The patient's name, date of , and procedure to be performed were verified. Ultrasound of the right hemithorax was performed in the axial and sagittal planes. A right pleural e ffusion is noted. Utilizing ultrasound guidance, optimal location for entry to the pleural cavity wa s ascertained. The overlying skin was prepped and draped in the usual sterile fashion. Approximate ly 10 ml of 1% Xylocaine was injected locally for pain control. Using ultrasound guidance, a 5-Fren Yueh catheter was introduced into the right pleural space without difficulty. Fluid was aspirated . COMPARISON: Chest x-ray done earlier the same day. FINDINGS: Initial ultrasound demonstrates fluid in the right pleural space. Approximately 0.860 liters of ser ous fluid was aspirated and sent to the laboratory. IMPRESSION: 1. Satisfactory ultrasound-guided right thoracentesis. RPTAT: QQ .Arnaldo Back MD, Date Time Electronically viewed and signed by .Arnaldo Back MD, on 01/18/2017 14:32 .R/
--- NOTE | 2017-01-18 14:34 | RADRPT ---
PROCEDURE: XR Chest. CLINICAL INDICATION: Shortness of breath. Post right thoracentesis. TECHNIQUE: Single frontal view. COMPARISON: Prior study earlier the same day. FINDINGS: Previously noted right pleural effusion is no longer present. There is mild atelectasis at the lung bases, unchanged on the left and improved on the right. The heart is enlarged. There is a tunneled right internal jugular vein dialysis catheter with the t ip in the cavoatrial junction region. There is no pneumothorax. IMPRESSION: 1. Improved appearance of the right lung following right thoracentesis. 2. No pneumothorax. RPTAT: QQ .Arnaldo Back MD, MD Date Time Electronically viewed and signed by .Arnaldo Back MD, MD on 01/18/2017 14:34 .R/
--- NOTE | 2017-01-18 14:49 | CONS ---
Date/Time of Note Date/Time of Note DATE: 01/18/17 TIME: 14:42 Assessment/Plan Assessment/Plan Additional Assessment/Plan * g tube site infection/ leak and dislodged tube. gi eval pending. 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 dr lopez notified. * sepsis; suspect multifactorial due to urosepsis/ g tube site infection and possible aspiration pna. on broad spectrum abx and monitored by id * urinary retention: guevara in place with marginal uo. has been on hd but now cr 1.0 ? imprvement or poor muscle mass. cont guevara and agressive diuresis and monitor. resume hd if uo remains poor * arf/ hd dependent. monitor uo with diuretics and decision to resume hd will dpend on labs and uo * chf: increase diuretics and monitor * pleural effusion: scheduled for thoracentesis * dm- on insulin. doing per pcp. * cv- h/o arrest, stent NE, cards following. b-danyel restarted. pulse lower from 111 to 104. cont to monitor * cholecystostomy- surg following and possible change of drain. * anemia- on epogen. transfuse if hb < 8 or hemodynamically unstable Consultation Date/Type/Reason Admit Date/Time Jan 16, 2017 at 22:45 Initial Consult Date 01/18/17 Type of Consultation: Pulmonary Referring Provider: SHAMA LOPEZ MD 24 HR Interval Summary Free Text/Dictation doing very poorly, lethrgic, poolry responsive. unable to verbalize specific complaints. moaning Exam/Review of Systems Vital Signs Vitals Vital Signs Date Time Temp Pulse Resp B/P Pulse Ox O2 Delivery O2 Flow Rate FiO2 01/18/17 12:40 97 01/18/17 11:05 99.3 19 95/48 97 01/18/17 08:58 Nasal Cannula 2.0 Intake and Output 01/17/17 01/17/17 01/18/17 15:00 23:00 07:00 Intake Total 1900 ml 260 ml Output Total 225 ml 50 ml Balance 1900 ml 35 ml -50 ml Exam Constitutional: frail Head: normocephalic Neck: non-tender, supple Respiratory: crackles/rales, diminished breath sounds (diffuse sc emphesyma noted) Cardiovascular: edema (1+ edema/ anasarca), regular rate and rhythm Gastrointestinal: non-tender, soft Results Result Diagram: 01/18/17 0525 01/18/17 0525 Results 24 hrs Laboratory Tests Test 01/17/17 15:00 01/17/17 18:04 01/17/17 19:05 01/17/17 19:38 Urine Color YELLOW Urine Clarity TURBID A Urine pH 7.0 Urine Specific Warren 1.012 Urine Ketones NEGATIVE Urine Nitrite NEGATIVE Urine Bilirubin NEGATIVE Urine Urobilinogen NEGATIVE Urine Leukocyte Esterase 3+ H Urine Microscopic RBC > 182 H Urine Microscopic WBC > 182 H Urine Squamous Epithelial Cells FEW Urine Bacteria MANY A Urine Hemoglobin 3+ H Urine Glucose NEGATIVE Urine Total Protein 2+ H Bedside Glucose 157 151 Sodium Level 137 Potassium Level 3.3 L Chloride Level 98 Carbon Dioxide Level 28 Anion Gap 14 # Blood Urea Nitrogen 28 H Creatinine 1.12 H Glucose Level 146 Calcium Level 8.1 L Test 01/17/17 22:46 01/18/17 05:25 01/18/17 05:28 01/18/17 06:24 Bedside Glucose 153 161 White Blood Count 21.9 #H Red Blood Count 2.92 L Hemoglobin 8.0 L Hematocrit 27.2 L Mean Corpuscular Volume 93.2 Mean Corpuscular Hemoglobin 27.4 L Mean Corpuscular Hemoglobin Concent 29.4 L Red Cell Distribution Width 19.3 H Platelet Count 340 Mean Platelet Volume 10.1 Neutrophils % 55.0 Band Neutrophils % 29.0 H Lymphocytes % 12.0 L Monocytes % 2.0 Eosinophils % Metamyelocytes % 1.0 H Myelocytes % 1.0 H Neutrophils # 12.0 H Lymphocytes # 2.6 Monocytes # 0.4 Eosinophils # Metamyelocytes # 0.2 Myelocytes # 0.2 Polychromasia 1+ Basophilic Stippling OCCASIONAL Sodium Level 138 Potassium Level 3.7 Chloride Level 99 Carbon Dioxide Level 26 Anion Gap 17 H Blood Urea Nitrogen 32 H Creatinine 1.25 H Glucose Level 147 Hemoglobin A1c 7.2 H Calcium Level 8.2 L Total Bilirubin 0.1 L Direct Bilirubin 0.00 Indirect Bilirubin 0.1 Aspartate Amino Transf (AST/SGOT) 29 Alanine Aminotransferase (ALT/SGPT) 38 Alkaline Phosphatase 285 H Total Protein 5.5 L Albumin 2.4 L Globulin 3.10 Albumin/Globulin Ratio 0.77 Phosphorus Level 3.1 Test 01/18/17 08:47 01/18/17 12:41 Bedside Glucose 186 154 Medications Medications Current Medications Metoprolol Tartrate (Lopressor) 2.5 mg BID IV Last administered on 01/18/17 08 :58; Admin Dose 2.5 MG; Start 01/17/17 at 09:00 Miscellaneous Information 1 ea NOTE XX ; Start 01/16/17 at 23:30 Glucose (Glutose) 15 gm Q15M PRN PO DECREASED GLUCOSE; Start 01/16/17 at 23:30 Glucose (Glutose) 22.5 gm Q15M PRN PO DECREASED GLUCOSE; Start 01/16/17 at 23: 30 Dextrose (D50w Syringe) 25 ml Q15M PRN IV DECREASED GLUCOSE; Start 01/16/17 at 23:30 Dextrose (D50w Syringe) 50 ml Q15M PRN IV DECREASED GLUCOSE; Start 01/16/17 at 23:30 Glucagon (Glucagen) 1 mg Q15M PRN IM DECREASED GLUCOSE; Start 01/16/17 at 23:30 Glucose 15 gm 15 gm Q15M PRN BUCCAL DECREASED GLUCOSE; Start 01/16/17 at 23:30 Piperacillin Sod/ Tazobactam Sod (Zosyn 2.25gm/ 50ml (Pmx)) 50 ml @ 100 mls/hr Q8 IVPB Last administered on 01/18/17 06:20; Admin Dose 100 MLS/HR; Start at 14:30 Insulin Glargine (Lantus) 30 unit DAILY@08 SC Last administered on 01/18/17 08 :52; Admin Dose 30 UNIT; Start 01/18/17 at 08:00 Diagnostic Test (Pha) (Accu-Chek) 1 ea 02 XX ; Start 01/18/17 at 02:00 Latanoprost (Xalatan) 1 drop HS BOTH EYES Last administered on 01/17/17 21:00 ; Admin Dose 1 DROP; Start 01/17/17 at 21:00 Insulin Aspart (Novolog Insulin Pen) NOVOLOG *MILD* ALGORI... Q4 SC Last administered on 01/18/17 12:44; Admin Dose 1 UNIT; Start 01/17/17 at 21:00 Epoetin Raj (Epogen (Esrd)) 10,000 units TuThSa@17 SC ; Start 01/18/17 at 17:00 Ondansetron HCl (Zofran Inj) 4 mg Q6H PRN IV NAUSEA AND/OR VOMITING; Start at 00:30 Miscellaneous Information (Pending Santyl Order For Wound Care) This patient le... PRN PRN XX WOUND CARE; Start 01/18/17 at 08:30 Miscellaneous Information (*Rx Drug Level Order Reminder*) RANDOM VANCOMYCIN LEVEL 7... ONCE ONCE XX ; Start 01/19/17 at 05:00; Stop 01/19/17 at 05:01 LOPEZ ATKINS MD Jan 18, 2017 14:49
[2017-01-18] MEDS: COLLAGENASE 30 GM TUBE TOP SCH (15:00)
[2017-01-18] MEDS ORDERED: COLLAGENASE 30 GM TUBE TOP PRN ×2 (15:00)
--- NOTE | 2017-01-18 16:15 | PN ---
Date/Time of Note Date/Time of Note DATE: 01/18/17 TIME: 16:08 Assessment/Plan Lines/Catheters IV Catheter Type (from [facility]): DIALYSIS CATH Rivas in Place (from [facility]): Yes Assessment/Plan Assessment/Plan [facility] Progress Note Date of Service: 01/18/17 Today's Impression & Plan: Overall has remained stable and perhaps slightly improved clinically. No indication for acute surgical intervention. Abd remains benign. Awaiting gallbladder percutaneous drain check. Not ready for lap myron. Will likely need 2-3 more months of recovery prior to possible surgical intervention. Alternative (not ideal, but certainly possible) would be to d/c the drain in a few weeks and observe patient. This would only be if patient will not be eligible for surgery. Separate from this issue, is the issue of the left-sided abdominal pain. 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 Important to formally evaluate the patient's ability to swallow and see if she can sustain herself by oral intake and not need further tube feedings. Discussed with patient and answered all questions. With above assessment, I've recommended the following for today: 1. Keep in-house 2. Percutaneous cholecystostomy tube check with possible exchange/upsizing 3. Awaiting results of formal swallow evaluation with possible resumption of regular food intake if the patient passes her test 4. Continue physical therapy in-house 5. Check labs 6. Correct electrolytes and recheck 7. Follow with cultures (? Urinary tract infection) 8. Monitor for signs of sepsis since she is at high risk (elevated and rising white blood cell count) Thank you again for allowing us to participate in the care of this very pleasant lady and her wonderful family. If there are any questions, please feel free to contact me at [phone]. Please note that, given the extensive number of diagnoses or management options , the moderate to extensive amount and/or complexity of data needed to be reviewed, and I risk of complications and/or morbidity or mortality, this qualifies as high complexity type of decision-making. Disclaimer: Inadvertent spelling and grammatical errors are likely due to EHR/ dictation software use and do not reflect on the quality of delivered patient care. Also, please note that the electronic time recorded on this node does not necessarily reflect the actual time of the visit. Updated Clinical Summary: A very pleasant 71-year-old lady with multiple comorbid issues including BMI of 35.6 as well as what has been in the hospital since 09/2016 being found unresponsive and multiple issues including congestive heart failure, acute renal failure due to acute tubular necrosis requiring dialysis, urinary tract infection with bacteremia and multiple other issues, who was found to have possible signs of acute cholecystitis on recent imaging. D/c to [facility] ([place] ) 12/25/16. Readmitted to [facility] for abdominal wall pain on the left side on 01/16/2017. COMORBIDITIES: 1. BMI of 35.6. 2. Acute renal failure (ATN), on maintenance hemodialysis (Friday, , Friday). 3. Congestive heart failure. 4. Anemia. 5. Hypocalcemia. 6. Hypoalbuminemia and malnutrition. 7. Peripheral vascular disease with gangrene of toes of both feet. 8. Recent history of respiratory failure. 9. History of dysphagia requiring PEG placement and feedings. 10. Diabetes mellitus. 11. Leukocytosis from various sources. 12. Funguria with Erica glabrata and Erica albicans of the urine. 13. Escherichia coli and Enterococcus urinary tract infection 10/29/2016. 14. Escherichia coli bacteremia 12/02/2016 (x2 cultures). 15. Repeat culture of the urine 12/02/2016 with E. coli, enterococcus species and Klebsiella pneumoniae, extended-spectrum beta-lactamase. 16. Repeat bacteremia 12/08/2016 with Escherichia coli. 17. Urine positive for Erica albicans 12/11/2016. 18. Clostridium difficile colitis negative on a few stool samples. 19. Bilateral pleural effusions. 20. 2 mm calcified granuloma in the right lower lobe. 21. CT scan of abdomen and pelvis 12/13/2016 showing large amount of pericholecystic fluid with distention of the gallbladder, which could be of acute cholecystitis. 22. Tumefaction sludge, poorly visualized gallstones or soft tissue masses are suspected within the lumen of the distended gallbladder. 23. Anasarca. 24. Status post splenectomy. 25. A 2.8 cm left parapelvic cyst and an adjacent 1.4 cm simple cyst lateral upper portion of the lower third left kidney noted. 26. Atherosclerotic vascular disease. 27. Osteoarthritis of the thoracic and lumbosacral spine. 28. History of acute ST elevation myocardial infarction, inferior wall, status post code STEMI with stent placement, as well as temporary pacer wire. 29. Hyperlipidemia. 30. Possible aspiration pneumonia. 31. S/p CT-guided percutaneous transhepatic cholecystostomy drain placement 06/22, [facility] Subjective: No major events or complaints; no major abd pain; no reported major n/v/d; no sob or cp; + flatus; - BM; minimal activity. No new issues. Not able to stand on her own power. Objective: Vitals: See below Exam: GENERAL: On exam, the patient was laying in bed and appeared to be comfortable and in no acute distress. ABDOMEN: Soft, nontender and nondistended. There are no peritoneal signs or guarding. Perc GB drain with bilious purulent output in the tubing. Minimal fluid in the AMBROSE. SKIN: Skin appears to be pink and feels warm to touch. NEUROLOGIC: Patient is awake, alert, and follows commands appropriately. Exam/Review of Systems Vital Signs Vitals Vital Signs Date Time Temp Pulse Resp B/P Pulse Ox O2 Delivery O2 Flow Rate FiO2 01/18/17 12:40 97 01/18/17 11:05 99.3 19 95/48 97 01/18/17 08:58 Nasal Cannula 2.0 Intake and Output 01/17/17 01/17/17 01/18/17 15:00 23:00 07:00 Intake Total 1900 ml 260 ml Output Total 225 ml 50 ml Balance 1900 ml 35 ml -50 ml Results Result Diagram: 01/18/17 0525 01/18/17 0525 SHANA ROSARIO M.D. Jan 18, 2017 16:15
[2017-01-18 16:38] LABS: FLUID GLUCOSE 138 mg/dl; FLUID LD 420 U/L; FLUID TOTAL PROTEIN 2.6 g/dl; FLUID TYPE THORACENTESIS FLUID
--- NOTE | 2017-01-18 16:41 | RADRPT ---
PROCEDURE: Over the wire exchange of cholecystostomy catheter. CLINICAL INDICATION: The existing cholecystostomy catheter is not functioning TECHNIQUE: Informed consent was obtained. Risks including bleeding and infection were explained to the the patric ent or the patient's family. They understood and were willing to proceed. A procedural pause was pe rformed. The patient's name, date of , and procedure to be performed were verified. The drainage catheter was inserted with all elements of maximal sterile barrier technique. All of th e following were used: head covering, facial mask, sterile gown, sterile gloves, a large sterile she et, hand hygiene, and 2% chlorhexidine for cutaneous antisepsis. The existing drainage catheter an d right upper quadrant of the abdomen were prepped and draped in usual sterile fashion. 20 ml of Omnipaque-300 was injected through the existing biliary drainage catheter into the gallblad nona, confirming position. Following the local injection of Xylocaine, a 0.035 inch Amplatz guidewir e was advanced through the existing cholecystostomy catheter in the right upper quadrant. The existi ng catheter was removed and a new 8.5 Hungarian multipurpose drainage catheter was advanced over the gu idewire into the gallbladder. The guidewire was removed. Contrast was injected confirming position with the tip of the catheter in the gallbladder. The catheter was secured to the skin with 2-0 silk. The site was dressed. The patient tolerated the procedure well. COMPARISON: CT scan dated 01/16/2017. FINDINGS: Final radiographic images demonstrate the tip of the catheter in the gallbladder. Cholangiogram julito ges with contrast demonstrate the gallbladder with filling defects consistent with gallstones. A to edel of 0.3 minutes of fluoroscopy time was used. 6 images of the abdomen were obtained with image intensifier. IMPRESSION: 1. Satisfactory replacement of biliary drainage catheter. 2. Gallstones in the gallbladder. RPTAT: QQ .Arnaldo Back MD, Date Time Electronically viewed and signed by .Arnaldo Back MD, on 01/18/2017 16:41 .R/
[2017-01-18] MEDS ORDERED: BUMETANIDE 25 MG in DEXTROSE 5% 150 ML IV SCH (17:00)
[2017-01-18] MEDS: EPOETIN 10000 UNITS/1 ML INJ (ESRD) SC SCH (17:03)
[2017-01-18 17:06] LABS: FLUID LYMPHOCYTES 50 %; FLUID MONOCYTES 5 %; FLUID NEUTROPHILS 45 %
[2017-01-18 17:07] LABS: FLD CLARITY SLIGHTLY CLOUDY; FLD COLOR YELLOW; FLD TYPE THORACENTHESIS; FLD WBC 373 /cmm; FLUID RBC EST 1+
[2017-01-18] MEDS: LATANOPROST 0.005% 2.5 ML OPH BOTH EYES SCH (21:00)
[2017-01-19] VITALS (22 sets, daily range): BP systolic 79–113; BP diastolic 42–71; PULSE 88–102; RESP 18–20
[2017-01-19] MEDS: INSULIN ASPART [NOVOLOG] 3 ML PEN SC SCH ×6 (01:00→21:00)
[2017-01-19] MEDS: ACCUCHECK AT 2AM (Patients on SS coverage) XX SCH (01:01)
[2017-01-19] MEDS: PIPER-TAZO 2.25 GM (PMX) 50 ML IVPB SCH (06:14)
[2017-01-19 07:24] LABS: ADD SCAN DIFF NO
[2017-01-19 07:31] LABS: ABNORMAL IP MESSAGE 1; HEMATOCRIT 27.4 % (37.0-47.0); MEAN CORPUSCULAR HGB CONC 29.2 g/dl (32.0-37.0); MEAN CORPUSCULAR VOLUME 95.8 fl (82.0-101.0); MEAN PLATELET VOLUME 9.7 fl (7.4-10.4); PLATELET COUNT 342 10^3/UL (140-415); RED BLOOD COUNT 2.86 10^6/ul (4.20-5.40); RED CELL DISTRIBUTION WIDTH 19.3 % (11.5-14.5); WHITE BLOOD COUNT 18.1 10^3/ul (4.8-10.8)
--- NOTE | 2017-01-19 07:35 | PN ---
Date/Time of Note Date/Time of Note DATE: 01/19/17 TIME: 07:25 Assessment/Plan Lines/Catheters IV Catheter Type (from [facility]): DIALYSIS Rivas in Place (from [facility]): Yes Assessment/Plan Assessment/Plan [facility] Progress Note Date of Service: 01/19/17 Today's Impression & Plan: Overall has remained stable. Gallbladder: Patient's percutaneous drain was exchanged yesterday (much appreciated Dr. Back's excellent care). 1. Plan is for laparoscopic cholecystectomy once the patient is medically stabilized (would likely take several weeks to months to accomplish). No further interventions needed at this time. 2, Will need drain care and education for patient and family as well as half-way staff. Very important to flush the drain with 10 cc of normal saline once a day and record daily outputs. Feeding: Abdomen appears to be benign on the left side with mild discomfort. No indication for intervention for this at the moment. I am still awaiting results of formal swallow test and I have ordered a barium evaluation with speech therapy in radiology. Ideally, the patient will pass her test and will be able to resume oral feedings, in which case no other interventions would be needed. If the patient does not pass her swallow test, we will have to discuss alternate ways of feedings (possible attempts to regain access through the same PEG tube site versus new tube placement; option of nasogastric or nasojejunal tube feeding also exists although not ideal, especially in the outpatient setting). Awaiting input from gastroenterology as well. 1. Barium swallow test with speech therapy and radiology 2. Multidisciplinary discussion between surgery, interventional radiology, and gastroenterology Overall, patient is doing reasonably well given the clinical picture and the extent of her problems. Urinary tract infection is being treated for E. coli. She also had removal of approximately 1 L of fluid from her chest yesterday. Her mood appears to be depressed and is thought to be appropriate given clinical situation and situational. Would benefit from occasional review from a medication standpoint. Despite her weight, the patient is likely malnourished and very important that the question of feeding gets answered as soon as possible. She is also extremely debilitated from a physical standpoint and very important for physical therapy to continue aggressively addressing this. With above assessment, I've recommended the following for today: 1. Keep in-house 2. Physical therapy involvement 3. Awaiting results of formal swallow evaluation with possible resumption of regular food intake if the patient passes her test 4. Check lab and correct electrolytes as needed 5. Targeted antimicrobial therapy based on culture results 6. Monitor for signs of sepsis since she is at high risk (elevated and rising white blood cell count) Thank you again for allowing us to participate in the care of this very pleasant lady and her wonderful family. If there are any questions, please feel free to contact me at [phone]. Please note that, given the extensive number of diagnoses or management options , the moderate to extensive amount and/or complexity of data needed to be reviewed, and I risk of complications and/or morbidity or mortality, this qualifies as high complexity type of decision-making. Disclaimer: Inadvertent spelling and grammatical errors are likely due to EHR/ dictation software use and do not reflect on the quality of delivered patient care. Also, please note that the electronic time recorded on this node does not necessarily reflect the actual time of the visit. Updated Clinical Summary: A very pleasant 71-year-old lady with multiple comorbid issues including BMI of 35.6 as well as what has been in the hospital since 09/2016 being found unresponsive and multiple issues including congestive heart failure, acute renal failure due to acute tubular necrosis requiring dialysis, urinary tract infection with bacteremia and multiple other issues, who was found to have possible signs of acute cholecystitis on recent imaging. D/c to [facility] ([place] ) 12/25/16. Readmitted to [facility] for abdominal wall pain on the left side on 01/16/2017. Urinary tract infection treated for E. coli. Thoracentesis with removal of approximately 1 L of fluid from her chest 2016. Percutaneous gallbladder drain exchange 01/18/2017. COMORBIDITIES: 1. BMI of 35.6. 2. Acute renal failure (ATN), on maintenance hemodialysis (Friday, , Friday). 3. Congestive heart failure. 4. Anemia. 5. Hypocalcemia. 6. Hypoalbuminemia and malnutrition. 7. Peripheral vascular disease with gangrene of toes of both feet. 8. Recent history of respiratory failure. 9. History of dysphagia requiring PEG placement and feedings. 10. Diabetes mellitus. 11. Leukocytosis from various sources. 12. Funguria with Erica glabrata and Erica albicans of the urine. 13. Escherichia coli and Enterococcus urinary tract infection 10/29/2016. 14. Escherichia coli bacteremia 12/02/2016 (x2 cultures). 15. Repeat culture of the urine 12/02/2016 with E. coli, enterococcus species and Klebsiella pneumoniae, extended-spectrum beta-lactamase. 16. Repeat bacteremia 12/08/2016 with Escherichia coli. 17. Urine positive for Erica albicans 12/11/2016. 18. Clostridium difficile colitis negative on a few stool samples. 19. Bilateral pleural effusions. 20. 2 mm calcified granuloma in the right lower lobe. 21. CT scan of abdomen and pelvis 12/13/2016 showing large amount of pericholecystic fluid with distention of the gallbladder, which could be of acute cholecystitis. 22. Tumefaction sludge, poorly visualized gallstones or soft tissue masses are suspected within the lumen of the distended gallbladder. 23. Anasarca. 24. Status post splenectomy. 25. A 2.8 cm left parapelvic cyst and an adjacent 1.4 cm simple cyst lateral upper portion of the lower third left kidney noted. 26. Atherosclerotic vascular disease. 27. Osteoarthritis of the thoracic and lumbosacral spine. 28. History of acute ST elevation myocardial infarction, inferior wall, status post code STEMI with stent placement, as well as temporary pacer wire. 29. Hyperlipidemia. 30. Possible aspiration pneumonia. 31. S/p CT-guided percutaneous transhepatic cholecystostomy drain placement 06/22, [facility] Subjective: No major events or complaints other than above; no major abd pain; no reported major n/v/d; no sob or cp; + flatus; - BM; minimal activity. No new issues. Not able to stand on her own power. Objective: Vitals: See below Exam: GENERAL: On exam, the patient was laying in bed and appeared to be comfortable and in no acute distress. ABDOMEN: Soft, nontender and nondistended. There are no peritoneal signs or guarding. Perc GB drain with bilious output in the tubing. Minimal fluid in the accordion bag. SKIN: Skin appears to be pink and feels warm to touch. NEUROLOGIC: Patient is awake, alert, and follows commands appropriately. Exam/Review of Systems Vital Signs Vitals Vital Signs Date Time Temp Pulse Resp B/P Pulse Ox O2 Delivery O2 Flow Rate FiO2 01/19/17 04:04 100 01/19/17 04:00 98.5 20 109/55 100 01/19/17 03:48 3.0 32 01/18/17 20:00 Nasal Cannula Intake and Output 01/18/17 01/18/17 01/19/17 15:00 23:00 07:00 Intake Total 60 ml 170 ml Output Total 5 ml 155 ml 5 ml Balance -5 ml -95 ml 165 ml Results Result Diagram: 01/18/17 0525 01/18/17 0525 SHANA ROSARIO M.D. Jan 19, 2017 07:35
[2017-01-19 07:48] LABS: IRON 29 ug/dl (35-150)
--- NOTE | 2017-01-19 07:49 | CONS ---
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 culture the wound site and continue with vanco/zosyn 01/18 - g-tube wound cx is NGTD 01/19 - g-tube wound cx has scant CoNS, doubt this is significant 2) choleycystitis pt has had a drain in place for this until she is ready for surgery will cx the fluid that is present 01/18 - AMBROSE drain cx has growth but too young continue with vanco/zosyn CT showed distending GB and gallstones but no fluid around the GB 01/19 - AMBROSE drain is growing regular klebsiella and MRSA due to kleb +ESBL in urine will change zosyn to merrem, to continue with vanco contact isolation orderd 3) recent STEMI and hx of CABG 4) renal failure pt has very good creatinine but is still receiving dialysis she also has distended bladder by CT will get u/a and urine cx, nurse to straight cath vanco/zosyn should cover 5) sacral ulcer unable to see nurse to get picture 01/18 - no sign for infection according to notes 6) UTI 01/18 - pus is coming out from guevara urine cx is growing GNR continue with zosyn as WBC is decreasing 01/19 - urine cx has kleb +ESBL change zosyn to merrem merrem to be given after HD on dialysis days 7) R pleural effusion with possible consolidation 01/18 - no phlegm production on vanco/zosyn at present will order nasal for MRSA pt to possibly get R thorancentesis 01/19 - pleural fluid does not appear to be infected with low WBC count and less than 50% PMN's will check LDH in serum to verify if exudative or transudative Problems: Consultation Date/Type/Reason Admit Date/Time Jan 16, 2017 at 22:45 Initial Consult Date 01/17/17 Type of Consultation: ID Referring Provider: SHAMA LOPEZ MD 24 HR Interval Summary Free Text/Dictation spoke to pt is more responsive than before no V, D, looks comfortable Subjective hx not possible: pt non-verbal Exam/Review of Systems Vital Signs Vitals Vital Signs Date Time Temp Pulse Resp B/P Pulse Ox O2 Delivery O2 Flow Rate FiO2 01/19/17 04:04 100 01/19/17 04:00 98.5 20 109/55 100 01/19/17 03:48 3.0 32 01/18/17 20:00 Nasal Cannula Intake and Output 01/18/17 01/18/17 01/19/17 15:00 23:00 07:00 Intake Total 60 ml 170 ml Output Total 5 ml 155 ml 5 ml Balance -5 ml -95 ml 165 ml Exam Constitutional: alert Respiratory: clear to auscultation Cardiovascular: regular rate and rhythm Gastrointestinal: soft, tender (tender to around the g-tube site, no redness) Results Result Diagram: 01/18/17 0525 01/18/17 0525 Results 24 hrs Laboratory Tests Test 01/18/17 08:47 01/18/17 12:41 01/18/17 14:10 01/18/17 17:01 Bedside Glucose 186 154 134 Body Fluid Type THORACENTHESIS Body Fluid Volume 850.0 Body Fluid Color YELLOW Body Fluid Appearance SLIGHTLY CLOUDY Body Fluid WBC 373 Body Fluid RBC 1+ Body Fluid Neutrophils % 45 Body Fluid Lymphocytes (%) 50 Body Fluid Monocytes % 5 Body Fluid Glucose 138 Body Fluid Total Protein 2.6 Body Fluid Lactate Dehydrogenase 420 Test 01/18/17 21:34 01/19/17 01:01 01/19/17 06:13 Bedside Glucose 122 97 87 Medications Medications Current Medications Metoprolol Tartrate (Lopressor) 2.5 mg BID IV Last administered on 01/18/17t 21 :25; Admin Dose 2.5 MG; Start 01/17/17 at 09:00 Miscellaneous Information 1 ea NOTE XX ; Start 01/16/17 at 23:30 Glucose (Glutose) 15 gm Q15M PRN PO DECREASED GLUCOSE; Start 01/16/17 at 23:30 Glucose (Glutose) 22.5 gm Q15M PRN PO DECREASED GLUCOSE; Start 01/16/17 at 23: 30 Dextrose (D50w Syringe) 25 ml Q15M PRN IV DECREASED GLUCOSE; Start 01/16/17 at 23:30 Dextrose (D50w Syringe) 50 ml Q15M PRN IV DECREASED GLUCOSE; Start 01/16/17 at 23:30 Glucagon (Glucagen) 1 mg Q15M PRN IM DECREASED GLUCOSE; Start 01/16/17 at 23:30 Glucose 15 gm 15 gm Q15M PRN BUCCAL DECREASED GLUCOSE; Start 01/16/17 at 23:30 Piperacillin Sod/ Tazobactam Sod (Zosyn 2.25gm/ 50ml (Pmx)) 50 ml @ 100 mls/hr Q8 IVPB Last administered on 01/19/17 06:14; Admin Dose 100 MLS/HR; Start at 14:30 Insulin Glargine (Lantus) 30 unit DAILY@08 SC Last administered on 01/18/17 08 :52; Admin Dose 30 UNIT; Start 01/18/17 at 08:00 Diagnostic Test (Pha) (Accu-Chek) 1 ea 02 XX ; Start 01/18/17 at 02:00 Latanoprost (Xalatan) 1 drop HS BOTH EYES Last administered on 01/17/17 21:00 ; Admin Dose 1 DROP; Start 01/17/17 at 21:00 Insulin Aspart (Novolog Insulin Pen) NOVOLOG *MILD* ALGORI... Q4 SC Last administered on 01/18/17 12:44; Admin Dose 1 UNIT; Start 01/17/17 at 21:00 Epoetin Raj (Epogen (Esrd)) 10,000 units TuThSa@17 SC Last administered on 17:03; Admin Dose 10,000 UNITS; Start 01/18/17 at 17:00 Ondansetron HCl (Zofran Inj) 4 mg Q6H PRN IV NAUSEA AND/OR VOMITING; Start at 00:30 Collagenase (Santyl) 1 applic DAILY TOP ; Start 01/18/17 at 16:00 Collagenase 1 applic 1 applic PRN PRN TOP WOUND CARE; Start 01/18/17 at 15:00 Bumetanide/ Dextrose (Bumex/D5W) 250 ml @ 10 mls/hr Q24H IV Last administered on 01/18/17 17:02; Admin Dose 10 MLS/HR; Start 01/18/17 at 17:00 TR GOODEN MD Jan 19, 2017 07:48
[2017-01-19 07:50] LABS: ALBUMIN 2.6 g/dl (3.3-4.9); ALBUMIN/GLOBULIN RATIO 0.83; CREATININE 1.69 mg/dl (0.44-1.00); POTASSIUM 3.6 mmol/L (3.5-5.1); TOTAL PROTEIN 5.7 g/dl (6.1-8.1)
[2017-01-19 07:58] LABS: TOTAL IRON BINDING CAPACITY 143 ug/dl (241-421)
[2017-01-19] MEDS: COLLAGENASE 30 GM TUBE TOP SCH (09:00)
[2017-01-19 09:22] LABS: BASOPHIL # 0.2 10^3/ul (0.0-0.1); EOSINOPHILS # 0.2 10^3/ul (0.0-0.5); LYMPHOCYTES # 1.8 10^3/ul (0.8-2.9); MONOCYTE # 1.3 10^3/ul (0.3-0.9); NEUTROPHIL # 11.8 10^3/ul (1.6-7.5)
[2017-01-19 09:24] LABS: ANISOCYTOSIS 1+; PLATELET ESTIMATE PLT APPEAR ADEQUATE
[2017-01-19] MEDS: METOPROLOL 5 MG INJ IV SCH ×2 (09:30→21:00)
--- NOTE | 2017-01-19 09:38 | PN ---
Date/Time of Note Date/Time of Note DATE: 01/19/17 TIME: 09:37 Assessment/Plan VTE Prophylaxis VTE Prophylaxis Intervention: LMWH Lines/Catheters IV Catheter Type (from Nrsg): DIALYSIS Central line still needed: Yes Urinary Cath still in place: Yes Reason Cath still needed: urinary retention Assessment/Plan Assessment/Plan gi- awaiting consult for replacement of g-tube. pt not appear to be able to take po nutrition appropriately. 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 dr lopez notified. -lawrence changed and growing klebsiella---id following and changing abx. -id following and pt on vanco/zosyn---now changed due to klebsiella to vanco/ merrem renal- pt producing some urine. renal following and questioning if functionality has improved. fluid overloaded, being diuresed. dialysis currently on hold and watching the bun and cr. cr increased 1.6. epogen given. pulm has a right lung infiltrate and mod effusion. pulm following tapped for 1 liter removed. abx changed. dm- on lower dose lantis while pt not getting po intake. accu checks mild high. on sliding scale. will add d5 to ivf if becomes low. cv- h/o arrest, stent NM, cards following. b-danyel restarted. pulse lower from 111 to 104 cholecystostomy- surg following and drain changed and growing klebsiella. anemia- discussed with renal if transfusion is necessary. pt given epogen. renal to watch. low in FE. awaiting it g-tube to be reinserted or other source for feeding. poor iv access. will get picc Subjective 24 Hr Interval Summary Free Text/Dictation 01/19 - LAWRENCE drain is growing regular klebsiella and MRSA due to kleb +ESBL in urine will change zosyn to merrem, to continue with vanco contact isolation orderd --pt awake and answers by nodding head. reports no pain. 01/18 lawrence changed , tap 1 liter fluid from lung Exam/Review of Systems Vital Signs Vitals Vital Signs Date Time Temp Pulse Resp B/P Pulse Ox O2 Delivery O2 Flow Rate FiO2 01/19/17 08:55 102 01/19/17 07:58 98.2 18 113/53 98 01/19/17 03:48 3.0 32 01/18/17 20:00 Nasal Cannula Intake and Output 01/18/17 01/18/17 01/19/17 15:00 23:00 07:00 Intake Total 60 ml 170 ml Output Total 5 ml 155 ml 5 ml Balance -5 ml -95 ml 165 ml Results Result Diagram: 01/19/17 0609 01/19/17 0609 Results 24 hrs Laboratory Tests Test 01/18/17 12:41 01/18/17 14:10 01/18/17 17:01 01/18/17 21:34 Bedside Glucose 154 134 122 Body Fluid Type THORACENTHESIS Body Fluid Volume 850.0 Body Fluid Color YELLOW Body Fluid Appearance SLIGHTLY CLOUDY Body Fluid WBC 373 Body Fluid RBC 1+ Body Fluid Neutrophils % 45 Body Fluid Lymphocytes (%) 50 Body Fluid Monocytes % 5 Body Fluid Glucose 138 Body Fluid Total Protein 2.6 Body Fluid Lactate Dehydrogenase 420 Test 01/19/17 01:01 01/19/17 06:09 01/19/17 06:13 01/19/17 06:24 Bedside Glucose 97 87 White Blood Count 18.1 H Red Blood Count 2.86 L Hemoglobin 8.0 L Hematocrit 27.4 L Mean Corpuscular Volume 95.8 Mean Corpuscular Hemoglobin 28.0 L Mean Corpuscular Hemoglobin Concent 29.2 L Red Cell Distribution Width 19.3 H Platelet Count 342 Mean Platelet Volume 9.7 Neutrophils % 65.0 Band Neutrophils % 11.0 H Lymphocytes % 10.0 L Reactive Lymphocytes % 4.0 Monocytes % 7.0 Eosinophils % 1.0 Basophils % 1.0 Promyelocytes % 1.0 H Neutrophils # 11.8 H Lymphocytes # 1.8 Monocytes # 1.3 H Eosinophils # 0.2 Basophils # 0.2 H Promyelocytes # 0.2 Platelet Estimate PLT APPEAR ADEQUATE Large Platelets FEW Giant Platelets OCCASIONAL Anisocytosis 1+ Sodium Level 140 Potassium Level 3.6 Chloride Level 99 Carbon Dioxide Level 27 Anion Gap 18 H Blood Urea Nitrogen 39 H Creatinine 1.69 H Glucose Level 79 # Calcium Level 8.0 L Total Bilirubin 0.0 L Direct Bilirubin 0.00 Indirect Bilirubin 0.0 Aspartate Amino Transf (AST/SGOT) 21 Alanine Aminotransferase (ALT/SGPT) 34 Alkaline Phosphatase 257 H Lactate Dehydrogenase 639 H Total Protein 5.7 L Albumin 2.6 L Globulin 3.10 Albumin/Globulin Ratio 0.83 Random Vancomycin Level 14.4 Iron Level 29 L Total Iron Binding Capacity 143 L Percent Iron Saturation 20 L Medications Medications Current Medications Metoprolol Tartrate (Lopressor) 2.5 mg BID IV Last administered on 01/18/17 21 :25; Admin Dose 2.5 MG; Start 01/17/17 at 09:00 Miscellaneous Information 1 ea NOTE XX ; Start 01/16/17 at 23:30 Glucose (Glutose) 15 gm Q15M PRN PO DECREASED GLUCOSE; Start 01/16/17 at 23:30 Glucose (Glutose) 22.5 gm Q15M PRN PO DECREASED GLUCOSE; Start 01/16/17 at 23: 30 Dextrose (D50w Syringe) 25 ml Q15M PRN IV DECREASED GLUCOSE; Start 01/16/17 at 23:30 Dextrose (D50w Syringe) 50 ml Q15M PRN IV DECREASED GLUCOSE; Start 01/16/17 at 23:30 Glucagon (Glucagen) 1 mg Q15M PRN IM DECREASED GLUCOSE; Start 01/16/17 at 23:30 Glucose (Glutose) 15 gm Q15M PRN BUCCAL DECREASED GLUCOSE; Start 01/16/17 at 23 :30 Insulin Glargine (Lantus) 30 unit DAILY@08 SC Last administered on 01/18/17 08 :52; Admin Dose 30 UNIT; Start 01/18/17 at 08:00 Diagnostic Test (Pha) (Accu-Chek) 1 ea 02 XX ; Start 01/18/17 at 02:00 Latanoprost (Xalatan) 1 drop HS BOTH EYES Last administered on 01/17/17 21:00 ; Admin Dose 1 DROP; Start 01/17/17 at 21:00 Insulin Aspart (Novolog Insulin Pen) NOVOLOG *MILD* ALGORI... Q4 SC Last administered on 01/18/17 12:44; Admin Dose 1 UNIT; Start 01/17/17 at 21:00 Epoetin Raj (Epogen (Esrd)) 10,000 units TuThSa@17 SC Last administered on 17:03; Admin Dose 10,000 UNITS; Start 01/18/17 at 17:00 Ondansetron HCl (Zofran Inj) 4 mg Q6H PRN IV NAUSEA AND/OR VOMITING; Start at 00:30 Collagenase (Santyl) 1 applic DAILY TOP ; Start 01/18/17 at 16:00 Collagenase 1 applic 1 applic PRN PRN TOP WOUND CARE; Start 01/18/17 at 15:00 Bumetanide 25 mg/ Dextrose 250 ml @ 10 mls/hr Q24H IV Last administered on t 17:02; Admin Dose 10 MLS/HR; Start 01/18/17 at 17:00 Meropenem/Sodium Chloride 50 ml @ 100 mls/hr ONCE IVPB ; Start 01/19/17 at 10: 00; Stop 01/19/17 at 10:29 Meropenem/Sodium Chloride 50 ml @ 100 mls/hr DAILY@20 IVPB ; Start 01/20/17 at 20:00 Vancomycin HCl/ Sodium Chloride (Vancocin/NS) 250 ml @ 83.333 mls/ hr 16 IVPB ; Start 01/19/17 at 16:00; Stop 01/19/17 at 23:00 SHAW SRINIVASAN MD Jan 19, 2017 09:38
[2017-01-19] MEDS: INSULIN GLARGINE [LANtus] 3 ML PEN SC SCH (09:39)
[2017-01-19] MEDS ORDERED: MEROPENEM 500MG/50 ML (PMX) 50 ML IVPB SCH (10:00)
[2017-01-19] MEDS ORDERED: LIDOCAINE 1% (MPF) 5 ML VIAL SC ONE (10:00)
--- NOTE | 2017-01-19 13:14 | CONS ---
Date/Time of Note Date/Time of Note DATE: 01/19/17 TIME: 13:13 Consult Date/Type/Reason Admit Date/Time Jan 16, 2017 at 22:45 Initial Consult Date 01/18/17 Type of Consultation: Pulmonary Ordering Provider: SHAMA LOPEZ MD Subjective Patient stable following thoracentesis of 800 cc Objective Vital Signs Date Time Temp Pulse Resp B/P Pulse Ox O2 Delivery O2 Flow Rate FiO2 01/19/17 12:36 98.0 98 18 112/71 98 01/19/17 08:00 Nasal Cannula 2.0 01/19/17 03:48 32 Intake and Output 01/18/17 01/18/17 01/19/17 15:00 23:00 07:00 Intake Total 60 ml 170 ml Output Total 5 ml 155 ml 5 ml Balance -5 ml -95 ml 165 ml Exam GENERAL: Chronically ill-appearing lady comfortable at rest no acute distress VITAL SIGNS: per chart NECK: Supple. No JVD or lymphadenopathy. CARDIAC EXAM: S1, S2. No added sounds or murmurs. CHEST: Diminished air entry both lung fairchild poor inspiratory effort ABDOMEN: Soft, nontender. No guarding or rebound. EXTREMITIES: No cyanosis, clubbing edema +2 NEUROLOGIC: Generalized weakness. Results/Medications Result Diagram: 01/19/17 0609 01/19/17 0609 Results 24 hrs Laboratory Tests Test 01/18/17 14:10 01/18/17 17:01 01/18/17 21:34 01/19/17 01:01 Body Fluid Type THORACENTHESIS Body Fluid Volume 850.0 Body Fluid Color YELLOW Body Fluid Appearance SLIGHTLY CLOUDY Body Fluid WBC 373 Body Fluid RBC 1+ Body Fluid Neutrophils % 45 Body Fluid Lymphocytes (%) 50 Body Fluid Monocytes % 5 Body Fluid Glucose 138 Body Fluid Total Protein 2.6 Body Fluid Lactate Dehydrogenase 420 Bedside Glucose 134 122 97 Test 01/19/17 06:09 01/19/17 06:13 01/19/17 06:24 01/19/17 09:33 White Blood Count 18.1 H Red Blood Count 2.86 L Hemoglobin 8.0 L Hematocrit 27.4 L Mean Corpuscular Volume 95.8 Mean Corpuscular Hemoglobin 28.0 L Mean Corpuscular Hemoglobin Concent 29.2 L Red Cell Distribution Width 19.3 H Platelet Count 342 Mean Platelet Volume 9.7 Neutrophils % 65.0 Band Neutrophils % 11.0 H Lymphocytes % 10.0 L Reactive Lymphocytes % 4.0 Monocytes % 7.0 Eosinophils % 1.0 Basophils % 1.0 Promyelocytes % 1.0 H Neutrophils # 11.8 H Lymphocytes # 1.8 Monocytes # 1.3 H Eosinophils # 0.2 Basophils # 0.2 H Promyelocytes # 0.2 Platelet Estimate PLT APPEAR ADEQUATE Large Platelets FEW Giant Platelets OCCASIONAL Anisocytosis 1+ Sodium Level 140 Potassium Level 3.6 Chloride Level 99 Carbon Dioxide Level 27 Anion Gap 18 H Blood Urea Nitrogen 39 H Creatinine 1.69 H Glucose Level 79 # Calcium Level 8.0 L Ferritin 1380.0 H Total Bilirubin 0.0 L Direct Bilirubin 0.00 Indirect Bilirubin 0.0 Aspartate Amino Transf (AST/SGOT) 21 Alanine Aminotransferase (ALT/SGPT) 34 Alkaline Phosphatase 257 H Lactate Dehydrogenase 639 H Total Protein 5.7 L Albumin 2.6 L Globulin 3.10 Albumin/Globulin Ratio 0.83 Random Vancomycin Level 14.4 Bedside Glucose 87 95 Iron Level 29 L Total Iron Binding Capacity 143 L Percent Iron Saturation 20 L Test 01/19/17 12:25 Bedside Glucose 96 Medications Current Medications Metoprolol Tartrate (Lopressor) 2.5 mg BID IV Last administered on 01/19/17 09 :30; Admin Dose 2.5 MG; Start 01/17/17 at 09:00 Miscellaneous Information 1 ea NOTE XX ; Start 01/16/17 at 23:30 Glucose (Glutose) 15 gm Q15M PRN PO DECREASED GLUCOSE; Start 01/16/17 at 23:30 Glucose (Glutose) 22.5 gm Q15M PRN PO DECREASED GLUCOSE; Start 01/16/17 at 23: 30 Dextrose (D50w Syringe) 25 ml Q15M PRN IV DECREASED GLUCOSE; Start 01/16/17 at 23:30 Dextrose (D50w Syringe) 50 ml Q15M PRN IV DECREASED GLUCOSE; Start 01/16/17 at 23:30 Glucagon (Glucagen) 1 mg Q15M PRN IM DECREASED GLUCOSE; Start 01/16/17 at 23:30 Glucose (Glutose) 15 gm Q15M PRN BUCCAL DECREASED GLUCOSE; Start 01/16/17 at 23 :30 Insulin Glargine (Lantus) 30 unit DAILY@08 SC Last administered on 01/19/17 09 :39; Admin Dose 30 UNIT; Start 01/18/17 at 08:00 Diagnostic Test (Pha) (Accu-Chek) 1 ea 02 XX ; Start 01/18/17 at 02:00 Latanoprost (Xalatan) 1 drop HS BOTH EYES Last administered on 01/17/17 21:00 ; Admin Dose 1 DROP; Start 01/17/17 at 21:00 Insulin Aspart (Novolog Insulin Pen) NOVOLOG *MILD* ALGORI... Q4 SC Last administered on 01/18/17 12:44; Admin Dose 1 UNIT; Start 01/17/17 at 21:00 Epoetin Raj (Epogen (Esrd)) 10,000 units TuThSa@17 SC Last administered on 17:03; Admin Dose 10,000 UNITS; Start 01/18/17 at 17:00 Ondansetron HCl (Zofran Inj) 4 mg Q6H PRN IV NAUSEA AND/OR VOMITING; Start at 00:30 Collagenase (Santyl) 1 applic DAILY TOP ; Start 01/18/17 at 16:00 Collagenase 1 applic 1 applic PRN PRN TOP WOUND CARE; Start 01/18/17 at 15:00 Meropenem/Sodium Chloride 50 ml @ 100 mls/hr DAILY@20 IVPB ; Start 01/20/17 at 20:00 Vancomycin HCl/ Sodium Chloride (Vancocin/NS) 250 ml @ 83.333 mls/ hr 16 IVPB ; Start 01/19/17 at 16:00; Stop 01/19/17 at 23:00 Enoxaparin Sodium (Lovenox) 30 mg DAILY SC ; Start 01/20/17 at 09:00 Assessment/Plan Chief Complaint/Hosp Course Switch assessment 1. Severe sepsis likely polymicrobial 2. Status post thoracentesis 800 cc pleural fluid suggestive of transudative process given low protein however elevated LDH noted. Await cultures and cytology. 3. End-stage renal failure on hemodialysis 4. History ST elevation OR 5. Recent recurrent hypoxemic respiratory failure 6. Dysphagia with G-tube Plan 1. Broad-spectrum antibiotics per infectious diseases 2. Supplemental O2 as needed 3. Wound care 4. Pleural fluid studies Problems: ZANDRA ROBISON MD, [facility] Jan 19, 2017 13:14
--- NOTE | 2017-01-19 14:14 | CONS ---
Date/Time of Note Date/Time of Note DATE: 01/19/17 TIME: 14:11 Assessment/Plan Assessment/Plan Additional Assessment/Plan * g tube site infection/ leak and dislodged tube. gi eval pending. on abx/ g ube removed and awaiting new one. swallow eval * SQ emphysema from dislodged peg, was removed * sepsis; suspect multifactorial due to urosepsis/ g tube site infection and possible aspiration pna. on broad spectrum abx and monitored by id * urinary retention: guevara in place. despite bumex drip she has had minimal uo aprox 350 cc in 24 hrs and remains severely overloaded. will plan dry uf today and in am. will luis daniel need rat exterminator hd * arf/ hd dependent. as above * chf: should improve with hd * pleural effusion: s/p thoracentesis 800 cc removed * dm- on insulin. doing per pcp. * cv- h/o arrest, stent [place], cards following. b-danyel restarted * cholecystostomy- surg following and possible change of drain. * anemia- on epogen. transfuse if hb < 8 or hemodynamically unstable Consultation Date/Type/Reason Admit Date/Time Jan 16, 2017 at 22:45 Initial Consult Date 01/18/17 Type of Consultation: Pulmonary Reason for Consultation more responsive today. s/p thoracentesis Referring Provider: SHAMA LOPEZ MD Exam/Review of Systems Vital Signs Vitals Vital Signs Date Time Temp Pulse Resp B/P Pulse Ox O2 Delivery O2 Flow Rate FiO2 01/19/17 14:05 88 01/19/17 12:36 98.0 18 112/71 98 01/19/17 08:00 Nasal Cannula 2.0 01/19/17 03:48 32 Intake and Output 01/18/17 01/18/17 01/19/17 15:00 23:00 07:00 Intake Total 60 ml 170 ml Output Total 5 ml 155 ml 5 ml Balance -5 ml -95 ml 165 ml Exam Constitutional: alert, frail Head: normocephalic Eyes: nl conjunctiva Neck: jvd, non-tender, supple Respiratory: diminished breath sounds Cardiovascular: edema (2-3 + edema/ anasarca), nl pulses, regular rate and rhythm Gastrointestinal: non-tender, soft Results Result Diagram: 01/19/17 0609 01/19/17 0609 Results 24 hrs Laboratory Tests Test 01/18/17 17:01 01/18/17 21:34 01/19/17 01:01 01/19/17 06:09 Bedside Glucose 134 122 97 White Blood Count 18.1 H Red Blood Count 2.86 L Hemoglobin 8.0 L Hematocrit 27.4 L Mean Corpuscular Volume 95.8 Mean Corpuscular Hemoglobin 28.0 L Mean Corpuscular Hemoglobin Concent 29.2 L Red Cell Distribution Width 19.3 H Platelet Count 342 Mean Platelet Volume 9.7 Neutrophils % 65.0 Band Neutrophils % 11.0 H Lymphocytes % 10.0 L Reactive Lymphocytes % 4.0 Monocytes % 7.0 Eosinophils % 1.0 Basophils % 1.0 Promyelocytes % 1.0 H Neutrophils # 11.8 H Lymphocytes # 1.8 Monocytes # 1.3 H Eosinophils # 0.2 Basophils # 0.2 H Promyelocytes # 0.2 Platelet Estimate PLT APPEAR ADEQUATE Large Platelets FEW Giant Platelets OCCASIONAL Anisocytosis 1+ Sodium Level 140 Potassium Level 3.6 Chloride Level 99 Carbon Dioxide Level 27 Anion Gap 18 H Blood Urea Nitrogen 39 H Creatinine 1.69 H Glucose Level 79 # Calcium Level 8.0 L Ferritin 1380.0 H Total Bilirubin 0.0 L Direct Bilirubin 0.00 Indirect Bilirubin 0.0 Aspartate Amino Transf (AST/SGOT) 21 Alanine Aminotransferase (ALT/SGPT) 34 Alkaline Phosphatase 257 H Lactate Dehydrogenase 639 H Total Protein 5.7 L Albumin 2.6 L Globulin 3.10 Albumin/Globulin Ratio 0.83 Random Vancomycin Level 14.4 Test 01/19/17 06:13 01/19/17 06:24 01/19/17 09:33 01/19/17 12:25 Bedside Glucose 87 95 96 Iron Level 29 L Total Iron Binding Capacity 143 L Percent Iron Saturation 20 L Medications Medications Current Medications Metoprolol Tartrate (Lopressor) 2.5 mg BID IV Last administered on 01/19/17t 09 :30; Admin Dose 2.5 MG; Start 01/17/17 at 09:00 Miscellaneous Information 1 ea NOTE XX ; Start 01/16/17 at 23:30 Glucose (Glutose) 15 gm Q15M PRN PO DECREASED GLUCOSE; Start 01/16/17 at 23:30 Glucose (Glutose) 22.5 gm Q15M PRN PO DECREASED GLUCOSE; Start 01/16/17 at 23: 30 Dextrose (D50w Syringe) 25 ml Q15M PRN IV DECREASED GLUCOSE; Start 01/16/17 at 23:30 Dextrose (D50w Syringe) 50 ml Q15M PRN IV DECREASED GLUCOSE; Start 01/16/17 at 23:30 Glucagon (Glucagen) 1 mg Q15M PRN IM DECREASED GLUCOSE; Start 01/16/17 at 23:30 Glucose (Glutose) 15 gm Q15M PRN BUCCAL DECREASED GLUCOSE; Start 01/16/17 at 23 :30 Insulin Glargine (Lantus) 30 unit DAILY@08 SC Last administered on 01/19/17 09 :39; Admin Dose 30 UNIT; Start 01/18/17 at 08:00 Diagnostic Test (Pha) (Accu-Chek) 1 ea 02 XX ; Start 01/18/17 at 02:00 Latanoprost (Xalatan) 1 drop HS BOTH EYES Last administered on 01/17/17 21:00 ; Admin Dose 1 DROP; Start 01/17/17 at 21:00 Insulin Aspart (Novolog Insulin Pen) NOVOLOG *MILD* ALGORI... Q4 SC Last administered on 01/18/17 12:44; Admin Dose 1 UNIT; Start 01/17/17 at 21:00 Epoetin Raj (Epogen (Esrd)) 10,000 units TuThSa@17 SC Last administered on 17:03; Admin Dose 10,000 UNITS; Start 01/18/17 at 17:00 Ondansetron HCl (Zofran Inj) 4 mg Q6H PRN IV NAUSEA AND/OR VOMITING; Start at 00:30 Collagenase (Santyl) 1 applic DAILY TOP ; Start 01/18/17 at 16:00 Collagenase 1 applic 1 applic PRN PRN TOP WOUND CARE; Start 01/18/17 at 15:00 Meropenem/Sodium Chloride 50 ml @ 100 mls/hr DAILY@20 IVPB ; Start 01/20/17 at 20:00 Vancomycin HCl/ Sodium Chloride (Vancocin/NS) 250 ml @ 83.333 mls/ hr 16 IVPB ; Start 01/19/17 at 16:00; Stop 01/19/17 at 23:00 Enoxaparin Sodium (Lovenox) 30 mg DAILY SC ; Start 01/20/17 at 09:00 LOPEZ ATKINS MD Jan 19, 2017 14:14
[2017-01-19] MEDS ORDERED: VANCOMYCIN 1.25 GM in SOD CHLORIDE 0.9% 250 ML IVPB SCH (16:00)
--- NOTE | 2017-01-19 20:00 | RADRPT ---
PROCEDURE: XR Chest. CLINICAL INDICATION: Check PICC line position. TECHNIQUE: Single frontal view. COMPARISON: 01/18/2017. FINDINGS: There is a right arm PICC line with the tip in the lower superior vena cava. There is mild atelecta sis at the lung bases with right worse than left. The appearance of the right lung is worse than se en previously. The heart size is normal. There is a moderate right pleural effusion. There is no pneumothorax. IMPRESSION: 1. Right arm PICC line tip in satisfactory position. 2. Worse appearance of the right lung and larger right pleural effusion. 3. No other change from 01/18/2017. RPTAT: QQ .Arnaldo Back MD, MD Date Time Electronically viewed and signed by .Arnaldo Back MD, MD on 01/19/2017 20:00 .R/
[2017-01-19] MEDS: LATANOPROST 0.005% 2.5 ML OPH BOTH EYES SCH (22:03)
[2017-01-20] VITALS (18 sets, daily range): BP systolic 90–114; BP diastolic 47–67; PULSE 94–152; RESP 16–24
[2017-01-20] MEDS: INSULIN ASPART [NOVOLOG] 3 ML PEN SC SCH ×6 (01:00→21:00)
[2017-01-20] MEDS: ACCUCHECK AT 2AM (Patients on SS coverage) XX SCH (01:19)
[2017-01-20] MEDS: INSULIN GLARGINE [LANtus] 3 ML PEN SC SCH (08:00)
[2017-01-20 08:08] LABS: ADD SCAN DIFF NO
[2017-01-20 08:15] LABS: BASOPHIL # 0.1 10^3/ul (0.0-0.1); BASOPHILS % 0.2 % (0.0-2.0); EOSINOPHILS # 0.1 10^3/ul (0.0-0.5); EOSINOPHILS % 0.6 % (0.0-7.0); HEMOGLOBIN 8.2 g/dl (12.0-16.0); LYMPHOCYTES # 2.1 10^3/ul (0.8-2.9); LYMPHOCYTES % 10.1 % (15.0-51.0); MEAN CORPUSCULAR HEMOGLOBIN 27.4 pg (29.0-33.0); MEAN CORPUSCULAR HGB CONC 29.3 g/dl (32.0-37.0); MEAN CORPUSCULAR VOLUME 93.6 fl (82.0-101.0); MEAN PLATELET VOLUME 9.8 fl (7.4-10.4); MONOCYTE # 0.8 10^3/ul (0.3-0.9); MONOCYTES % 3.9 % (0.0-11.0); NEUTROPHIL # 17.2 10^3/ul (1.6-7.5); NEUTROPHILS % 83.1 % (39.0-77.0); NUCLEATED RED BLOOD CELLS # 0.1 10^3/ul (0.0-0.0); NUCLEATED RED BLOOD CELLS% 0.2 /100WBC (0.0-0.0); PLATELET COUNT 299 10^3/UL (140-415); RED BLOOD COUNT 2.99 10^6/ul (4.20-5.40); RED CELL DISTRIBUTION WIDTH 19.9 % (11.5-14.5); WHITE BLOOD COUNT 20.7 10^3/ul (4.8-10.8)
--- NOTE | 2017-01-20 08:20 | CONS ---
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 culture the wound site and continue with vanco/zosyn 01/18 - g-tube wound cx is NGTD 01/19 - g-tube wound cx has scant CoNS, doubt this is significant 01/20 - await decision regarding g-tube re-insertion 2) choleycystitis pt has had a drain in place for this until she is ready for surgery will cx the fluid that is present 01/18 - AMBROSE drain cx has growth but too young continue with vanco/zosyn CT showed distending GB and gallstones but no fluid around the GB 01/19 - AMBROSE drain is growing regular klebsiella and MRSA due to kleb +ESBL in urine will change zosyn to merrem, to continue with vanco contact isolation ordered 01/20 - continue with vanco/merrem at present 3) recent STEMI and hx of CABG 4) renal failure pt has very good creatinine but is still receiving dialysis she also has distended bladder by CT will get u/a and urine cx, nurse to straight cath vanco/zosyn should cover 5) sacral ulcer unable to see nurse to get picture 01/18 - no sign for infection according to notes 6) UTI 01/18 - pus is coming out from guevara urine cx is growing GNR continue with zosyn as WBC is decreasing 01/19 - urine cx has kleb +ESBL change zosyn to merrem merrem to be given after HD on dialysis days 01/20 - no change 7) R pleural effusion with possible consolidation 01/18 - no phlegm production on vanco/zosyn at present will order nasal for MRSA pt to possibly get R thorancentesis 01/19 - pleural fluid does not appear to be infected with low WBC count and less than 50% PMN's will check LDH in serum to verify if exudative or transudative 01/20 - LDH results consistent with exudative process, cx remain NGTD 8) 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 01/20 - no sign of cellulitis around these toes Problems: Consultation Date/Type/Reason Admit Date/Time Jan 16, 2017 at 22:45 Initial Consult Date 01/17/17 Type of Consultation: ID Referring Provider: SHAMA LOPEZ MD 24 HR Interval Summary Free Text/Dictation pt denies pain, no current nausea pt nods to questions but makes minimal movements with it Exam/Review of Systems Vital Signs Vitals Vital Signs Date Time Temp Pulse Resp B/P Pulse Ox O2 Delivery O2 Flow Rate FiO2 01/20/17 07:28 98.1 79 16 112/61 93 01/20/17 02:16 3.0 01/19/17 22:00 Nasal Cannula 01/19/17 03:48 32 Intake and Output 01/19/17 01/19/17 01/20/17 15:00 23:00 07:00 Intake Total 700 ml 340 ml Output Total 3455 ml 100 ml 250 ml Balance -2755 ml 240 ml -250 ml Exam Constitutional: alert Head: normocephalic ENMT: mucosa pink and moist Respiratory: other (coarse rhonchi, R>L) Cardiovascular: regular rate and rhythm Gastrointestinal: distended, other (tender to around where g-tube was but seems less so), soft Extremities: other (dry gangrene of L 2nd toe tip and R 1st toe tip) Results Result Diagram: 01/19/17 0609 01/19/17 0609 Results 24 hrs Laboratory Tests Test 01/19/17 09:33 01/19/17 12:25 01/19/17 17:25 01/19/17 22:03 Bedside Glucose 95 96 110 103 Test 01/20/17 01:18 01/20/17 06:39 Bedside Glucose 90 130 Medications Medications Current Medications Metoprolol Tartrate (Lopressor) 2.5 mg BID IV Last administered on 01/19/17t 09 :30; Admin Dose 2.5 MG; Start 01/17/17 at 09:00 Miscellaneous Information 1 ea NOTE XX ; Start 01/16/17 at 23:30 Glucose (Glutose) 15 gm Q15M PRN PO DECREASED GLUCOSE; Start 01/16/17 at 23:30 Glucose (Glutose) 22.5 gm Q15M PRN PO DECREASED GLUCOSE; Start 01/16/17 at 23: 30 Dextrose (D50w Syringe) 25 ml Q15M PRN IV DECREASED GLUCOSE; Start 01/16/17 at 23:30 Dextrose (D50w Syringe) 50 ml Q15M PRN IV DECREASED GLUCOSE; Start 01/16/17 at 23:30 Glucagon (Glucagen) 1 mg Q15M PRN IM DECREASED GLUCOSE; Start 01/16/17 at 23:30 Glucose (Glutose) 15 gm Q15M PRN BUCCAL DECREASED GLUCOSE; Start 01/16/17 at 23 :30 Insulin Glargine (Lantus) 30 unit DAILY@08 SC Last administered on 01/19/17 09 :39; Admin Dose 30 UNIT; Start 01/18/17 at 08:00 Diagnostic Test (Pha) (Accu-Chek) 1 ea 02 XX ; Start 01/18/17 at 02:00 Latanoprost (Xalatan) 1 drop HS BOTH EYES Last administered on 01/19/17 22:03 ; Admin Dose 1 DROP; Start 01/17/17 at 21:00 Insulin Aspart (Novolog Insulin Pen) NOVOLOG *MILD* ALGORI... Q4 SC Last administered on 01/18/17 12:44; Admin Dose 1 UNIT; Start 01/17/17 at 21:00 Epoetin Raj (Epogen (Esrd)) 10,000 units TuThSa@17 SC Last administered on 17:03; Admin Dose 10,000 UNITS; Start 01/18/17 at 17:00 Ondansetron HCl (Zofran Inj) 4 mg Q6H PRN IV NAUSEA AND/OR VOMITING; Start at 00:30 Collagenase (Santyl) 1 applic DAILY TOP ; Start 01/18/17 at 16:00 Collagenase 1 applic 1 applic PRN PRN TOP WOUND CARE; Start 01/18/17 at 15:00 Meropenem/Sodium Chloride (Merrem 500mg/50 ml(Pmx)) 50 ml @ 100 mls/hr DAILY@ 20 IVPB ; Start 01/20/17 at 20:00 Enoxaparin Sodium (Lovenox) 30 mg DAILY SC ; Start 01/20/17 at 09:00 TR GOODEN MD Jan 20, 2017 08:19
--- NOTE | 2017-01-20 08:25 | CONS ---
Date/Time of Note Date/Time of Note DATE: 01/20/17 TIME: 08:20 Assessment/Plan Assessment/Plan Chief Complaint/Hosp Course Impression: 1. Renal failure. This patient is being seen by me today for a history of renal failure. She is scheduled for dialysis today. She is to have dry ultrafiltration. She does have evidence of volume overload. Her labs are pending today. 2. Multiple medical problems including insulin-dependent diabetes mellitus, atherosclerotic heart disease with acute MT and status post cardiac arrest with acute renal failure and anoxic encephalopathy, congestive heart failure, anemia of chronic disease, malnutrition, dysphagia requiring PEG placement urinary tract infection acute cholecystitis with drainage tube in place, peripheral vascular disease, history of her respiratory failure, history of acute cholecystitis with gallbladder drainage tube in place Plan: 1. Dialysis with dry ultrafiltration ordered for today 2. Continue Epogen 3. Monitor daily labs and renal function. 4. Agree with broad-spectrum antibiotics 5. I will follow the patient along with you. Problems: Consultation Date/Type/Reason Admit Date/Time Jan 16, 2017 at 22:45 Initial Consult Date 01/18/17 Type of Consultation: ID Referring Provider: SHAMA LOPEZ MD 24 HR Interval Summary Free Text/Dictation She is lethargic. She does arouse to verbal stimuli and is able to respond. She is having some congested cough. She denies pain. Constitutional: no complaints Exam/Review of Systems Vital Signs Vitals Vital Signs Date Time Temp Pulse Resp B/P Pulse Ox O2 Delivery O2 Flow Rate FiO2 01/20/17 08:13 3.0 01/20/17 08:13 104 01/20/17 07:28 98.1 16 112/61 93 01/19/17 22:00 Nasal Cannula 01/19/17 03:48 32 Intake and Output 01/19/17 01/19/17 01/20/17 15:00 23:00 07:00 Intake Total 700 ml 340 ml Output Total 3455 ml 100 ml 250 ml Balance -2755 ml 240 ml -250 ml Exam Constitutional: alert, frail, obese Respiratory: congested cough, diminished breath sounds Cardiovascular: edema, regular rate and rhythm Extremities: edema Neurological: lethargic Results Result Diagram: 01/19/17 0609 01/19/17 0609 Results 24 hrs Laboratory Tests Test 01/19/17 09:33 01/19/17 12:25 01/19/17 17:25 01/19/17 22:03 Bedside Glucose 95 96 110 103 Test 01/20/17 01:18 01/20/17 06:23 01/20/17 06:39 Bedside Glucose 90 130 White Blood Count 20.7 H Red Blood Count 2.99 L Hemoglobin 8.2 L Hematocrit 28.0 L Mean Corpuscular Volume 93.6 Mean Corpuscular Hemoglobin 27.4 L Mean Corpuscular Hemoglobin Concent 29.3 L Red Cell Distribution Width 19.9 H Platelet Count 299 Mean Platelet Volume 9.8 Neutrophils % 83.1 H Lymphocytes % 10.1 L Monocytes % 3.9 Eosinophils % 0.6 Basophils % 0.2 Nucleated Red Blood Cells % 0.2 H Neutrophils # 17.2 H Lymphocytes # 2.1 Monocytes # 0.8 Eosinophils # 0.1 Basophils # 0.1 Nucleated Red Blood Cells # 0.1 H Medications Medications Current Medications Metoprolol Tartrate (Lopressor) 2.5 mg BID IV Last administered on 01/19/17 09 :30; Admin Dose 2.5 MG; Start 01/17/17 at 09:00 Miscellaneous Information 1 ea NOTE XX ; Start 01/16/17 at 23:30 Glucose (Glutose) 15 gm Q15M PRN PO DECREASED GLUCOSE; Start 01/16/17 at 23:30 Glucose (Glutose) 22.5 gm Q15M PRN PO DECREASED GLUCOSE; Start 01/16/17 at 23: 30 Dextrose (D50w Syringe) 25 ml Q15M PRN IV DECREASED GLUCOSE; Start 01/16/17 at 23:30 Dextrose (D50w Syringe) 50 ml Q15M PRN IV DECREASED GLUCOSE; Start 01/16/17 at 23:30 Glucagon (Glucagen) 1 mg Q15M PRN IM DECREASED GLUCOSE; Start 01/16/17 at 23:30 Glucose (Glutose) 15 gm Q15M PRN BUCCAL DECREASED GLUCOSE; Start 01/16/17 at 23 :30 Insulin Glargine (Lantus) 30 unit DAILY@08 SC Last administered on 01/19/17 09 :39; Admin Dose 30 UNIT; Start 01/18/17 at 08:00 Diagnostic Test (Pha) (Accu-Chek) 1 ea 02 XX ; Start 01/18/17 at 02:00 Latanoprost (Xalatan) 1 drop HS BOTH EYES Last administered on 01/19/17 22:03 ; Admin Dose 1 DROP; Start 01/17/17 at 21:00 Insulin Aspart (Novolog Insulin Pen) NOVOLOG *MILD* ALGORI... Q4 SC Last administered on 01/18/17 12:44; Admin Dose 1 UNIT; Start 01/17/17 at 21:00 Epoetin Raj (Epogen (Esrd)) 10,000 units TuThSa@17 SC Last administered on 17:03; Admin Dose 10,000 UNITS; Start 01/18/17 at 17:00 Ondansetron HCl (Zofran Inj) 4 mg Q6H PRN IV NAUSEA AND/OR VOMITING; Start at 00:30 Collagenase (Santyl) 1 applic DAILY TOP ; Start 01/18/17 at 16:00 Collagenase 1 applic 1 applic PRN PRN TOP WOUND CARE; Start 01/18/17 at 15:00 Meropenem/Sodium Chloride (Merrem 500mg/50 ml(Pmx)) 50 ml @ 100 mls/hr DAILY@ 20 IVPB ; Start 01/20/17 at 20:00 Enoxaparin Sodium (Lovenox) 30 mg DAILY SC ; Start 01/20/17 at 09:00 DAMIR MARTINEZ MD Jan 20, 2017 08:25
[2017-01-20 08:36] LABS: ALBUMIN 2.5 g/dl (3.3-4.9); ALBUMIN/GLOBULIN RATIO 0.78; CALCIUM 8.2 mg/dl (8.4-10.2); CREATININE 1.34 mg/dl (0.44-1.00); POTASSIUM 3.3 mmol/L (3.5-5.1); TOTAL PROTEIN 5.7 g/dl (6.1-8.1)
[2017-01-20] MEDS: METOPROLOL 5 MG INJ IV SCH ×2 (09:00→21:00)
[2017-01-20] MEDS: DEXTROSE 50% 50 ML SYRINGE IV PRN (09:08)
[2017-01-20] MEDS: ENOXAPARIN 30 MG/0.3 ML SYG SC SCH (09:13)
[2017-01-20] MEDS ORDERED: POTASSIUM CHLORIDE 20 MEQ in SOD CHLORIDE 0.9% 100 ML IVPB ONE (09:30)
[2017-01-20] MEDS: DEXTROSE 5%-0.45% NACL 1,000 ML IV SCH (10:56)
[2017-01-20] MEDS: COLLAGENASE 30 GM TUBE TOP SCH (10:57)
[2017-01-20] MEDS ORDERED: VITAMIN A & D 5 GM OINT PACKET TOP ONE (13:40)
--- NOTE | 2017-01-20 14:16 | PN ---
Date/Time of Note Date/Time of Note DATE: 01/20/17 TIME: 14:10 Assessment/Plan VTE Prophylaxis VTE Prophylaxis Intervention: LMWH Lines/Catheters IV Catheter Type (from Nrs): PICC Line Central line still needed: Yes Urinary Cath still in place: Yes Reason Cath still needed: other (indicate) Assessment/Plan Assessment/Plan 01/20 dialysis today, low sugar overall bad day today. 01/19gi- awaiting consult for replacement of g-tube. pt not appear to be able to take po nutrition appropriately. 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 dr lopez notified. -lawrence changed and growing klebsiella---id following and changing abx. -id following and pt on vanco/zosyn---now changed due to klebsiella to vanco/ merrem renal- pt producing some urine. renal following and questioning if functionality has improved. fluid overloaded, being diuresed. dialysis restarting. epogen given. pulm has a right lung infiltrate and mod effusion. pulm following tapped for 1 liter removed. abx changed. dm- on sliding scale. no nutrition yet, sugar running low- lantis decreased. d5 running. cv- h/o arrest, stent [place], cards following. b-danyel restarted. cholecystostomy- surg following and drain changed and growing klebsiella. anemia- discussed with renal if transfusion is necessary. pt given epogen. renal to watch. low in FE. awaiting it g-tube to be reinserted or other source for feeding. hgb better 8.2. poor iv access. picc placed. Exam/Review of Systems Vital Signs Vitals Vital Signs Date Time Temp Pulse Resp B/P Pulse Ox O2 Delivery O2 Flow Rate FiO2 01/20/17 12:09 104 01/20/17 11:24 98.3 24 114/67 94 01/20/17 08:13 3.0 01/19/17 22:00 Nasal Cannula 01/19/17 03:48 32 Intake and Output 01/19/17 01/19/17 01/20/17 15:00 23:00 07:00 Intake Total 700 ml 340 ml Output Total 3455 ml 100 ml 250 ml Balance -2755 ml 240 ml -250 ml Results Result Diagram: 01/20/17 0623 01/20/17 0623 Results 24 hrs Laboratory Tests Test 01/19/17 17:25 01/19/17 22:03 01/20/17 01:18 01/20/17 05:56 Bedside Glucose 110 103 90 66 L Test 01/20/17 06:23 01/20/17 06:39 01/20/17 09:00 01/20/17 09:38 White Blood Count 20.7 H Red Blood Count 2.99 L Hemoglobin 8.2 L Hematocrit 28.0 L Mean Corpuscular Volume 93.6 Mean Corpuscular Hemoglobin 27.4 L Mean Corpuscular Hemoglobin Concent 29.3 L Red Cell Distribution Width 19.9 H Platelet Count 299 Mean Platelet Volume 9.8 Neutrophils % 83.1 H Lymphocytes % 10.1 L Monocytes % 3.9 Eosinophils % 0.6 Basophils % 0.2 Nucleated Red Blood Cells % 0.2 H Neutrophils # 17.2 H Lymphocytes # 2.1 Monocytes # 0.8 Eosinophils # 0.1 Basophils # 0.1 Nucleated Red Blood Cells # 0.1 H Sodium Level 141 Potassium Level 3.3 L Chloride Level 101 Carbon Dioxide Level 26 Anion Gap 17 H Blood Urea Nitrogen 35 H Creatinine 1.34 H Glucose Level 44 #*L Calcium Level 8.2 L Total Bilirubin 0.0 L Direct Bilirubin 0.00 Indirect Bilirubin 0.0 Aspartate Amino Transf (AST/SGOT) 23 Alanine Aminotransferase (ALT/SGPT) 31 Alkaline Phosphatase 283 H Total Protein 5.7 L Albumin 2.5 L Globulin 3.20 Albumin/Globulin Ratio 0.78 Bedside Glucose 130 66 L 98 Test 01/20/17 10:52 01/20/17 13:55 Bedside Glucose 82 117 Medications Medications Current Medications Metoprolol Tartrate (Lopressor) 2.5 mg BID IV Last administered on 01/19/17 09 :30; Admin Dose 2.5 MG; Start 01/17/17 at 09:00 Miscellaneous Information 1 ea NOTE XX ; Start 01/16/17 at 23:30 Glucose (Glutose) 15 gm Q15M PRN PO DECREASED GLUCOSE; Start 01/16/17 at 23:30 Glucose (Glutose) 22.5 gm Q15M PRN PO DECREASED GLUCOSE; Start 01/16/17 at 23: 30 Dextrose (D50w Syringe) 25 ml Q15M PRN IV DECREASED GLUCOSE Last administered on 7/17/17at 09:08; Admin Dose 25 ML; Start 01/16/17 at 23:30 Dextrose (D50w Syringe) 50 ml Q15M PRN IV DECREASED GLUCOSE; Start 01/16/17 at 23:30 Glucagon (Glucagen) 1 mg Q15M PRN IM DECREASED GLUCOSE; Start 01/16/17 at 23:30 Glucose (Glutose) 15 gm Q15M PRN BUCCAL DECREASED GLUCOSE; Start 01/16/17 at 23 :30 Diagnostic Test (Pha) (Accu-Chek) 1 ea 02 XX ; Start 01/18/17 at 02:00 Latanoprost (Xalatan) 1 drop HS BOTH EYES Last administered on 01/19/17 22:03 ; Admin Dose 1 DROP; Start 01/17/17 at 21:00 Insulin Aspart (Novolog Insulin Pen) NOVOLOG *MILD* ALGORI... Q4 SC Last administered on 01/18/17 12:44; Admin Dose 1 UNIT; Start 01/17/17 at 21:00 Epoetin Raj (Epogen (Esrd)) 10,000 units TuThSa@17 SC Last administered on 17:03; Admin Dose 10,000 UNITS; Start 01/18/17 at 17:00 Ondansetron HCl (Zofran Inj) 4 mg Q6H PRN IV NAUSEA AND/OR VOMITING; Start at 00:30 Collagenase (Santyl) 1 applic DAILY TOP Last administered on 01/20/17 10:57; Admin Dose 1 APPLIC; Start 01/18/17 at 16:00 Collagenase 1 applic 1 applic PRN PRN TOP WOUND CARE; Start 01/18/17 at 15:00 Meropenem/Sodium Chloride (Merrem 500mg/50 ml(Pmx)) 50 ml @ 100 mls/hr DAILY@ 20 IVPB ; Start 01/20/17 at 20:00 Enoxaparin Sodium (Lovenox) 30 mg DAILY SC Last administered on 01/20/17 09:13 ; Admin Dose 30 MG; Start 01/20/17 at 09:00 Insulin Glargine 20 unit 20 unit DAILY@08 SC ; Start 01/21/17 at 08:00 Dextrose/Sodium Chloride (D5-1/2ns) 1,000 ml @ 60 mls/hr [id number] IV Last administered on 7/17/17at 10:56; Admin Dose 60 MLS/HR; Start 01/20/17 at 09:30 SHAW SRINIVASAN MD Jan 20, 2017 14:16
--- NOTE | 2017-01-20 15:30 | CONS ---
Date/Time of Note Date/Time of Note DATE: 01/20/17 TIME: 15:29 Consult Date/Type/Reason Admit Date/Time Jan 16, 2017 at 22:45 Initial Consult Date 01/18/17 Type of Consultation: Pulmonary Ordering Provider: SHAMA LOPEZ MD Subjective Patient stable no new events Objective Vital Signs Date Time Temp Pulse Resp B/P Pulse Ox O2 Delivery O2 Flow Rate FiO2 01/20/17 12:09 104 01/20/17 11:24 98.3 24 114/67 94 01/20/17 08:13 3.0 01/20/17 08:00 Nasal Cannula 01/19/17 03:48 32 Intake and Output 01/19/17 01/19/17 01/20/17 14:59 22:59 06:59 Intake Total 700 ml 340 ml Output Total 3455 ml 100 ml 250 ml Balance -2755 ml 240 ml -250 ml Exam GENERAL: Chronically ill-appearing lady comfortable at rest no acute distress VITAL SIGNS: per chart NECK: Supple. No JVD or lymphadenopathy. CARDIAC EXAM: S1, S2. No added sounds or murmurs. CHEST: Diminished air entry both lung fairchild poor inspiratory effort ABDOMEN: Soft, nontender. No guarding or rebound. EXTREMITIES: No cyanosis, clubbing edema +2 NEUROLOGIC: Generalized weakness. Results/Medications Result Diagram: 01/20/1723 01/20/17 0623 Results 24 hrs Laboratory Tests Test 01/19/17 17:25 01/19/17 22:03 01/20/17 01:18 01/20/17 05:56 Bedside Glucose 110 103 90 66 L Test 01/20/17 06:23 01/20/17 06:39 01/20/17 09:00 01/20/17 09:38 White Blood Count 20.7 H Red Blood Count 2.99 L Hemoglobin 8.2 L Hematocrit 28.0 L Mean Corpuscular Volume 93.6 Mean Corpuscular Hemoglobin 27.4 L Mean Corpuscular Hemoglobin Concent 29.3 L Red Cell Distribution Width 19.9 H Platelet Count 299 Mean Platelet Volume 9.8 Neutrophils % 83.1 H Lymphocytes % 10.1 L Monocytes % 3.9 Eosinophils % 0.6 Basophils % 0.2 Nucleated Red Blood Cells % 0.2 H Neutrophils # 17.2 H Lymphocytes # 2.1 Monocytes # 0.8 Eosinophils # 0.1 Basophils # 0.1 Nucleated Red Blood Cells # 0.1 H Sodium Level 141 Potassium Level 3.3 L Chloride Level 101 Carbon Dioxide Level 26 Anion Gap 17 H Blood Urea Nitrogen 35 H Creatinine 1.34 H Glucose Level 44 #*L Calcium Level 8.2 L Total Bilirubin 0.0 L Direct Bilirubin 0.00 Indirect Bilirubin 0.0 Aspartate Amino Transf (AST/SGOT) 23 Alanine Aminotransferase (ALT/SGPT) 31 Alkaline Phosphatase 283 H Total Protein 5.7 L Albumin 2.5 L Globulin 3.20 Albumin/Globulin Ratio 0.78 Bedside Glucose 130 66 L 98 Test 01/20/17 10:52 01/20/17 13:55 Bedside Glucose 82 117 Medications Current Medications Metoprolol Tartrate (Lopressor) 2.5 mg BID IV Last administered on 01/19/17 09 :30; Admin Dose 2.5 MG; Start 01/17/17 at 09:00 Miscellaneous Information 1 ea NOTE XX ; Start 01/16/17 at 23:30 Glucose (Glutose) 15 gm Q15M PRN PO DECREASED GLUCOSE; Start 01/16/17 at 23:30 Glucose (Glutose) 22.5 gm Q15M PRN PO DECREASED GLUCOSE; Start 01/16/17 at 23: 30 Dextrose (D50w Syringe) 25 ml Q15M PRN IV DECREASED GLUCOSE Last administered on 01/20/17 09:08; Admin Dose 25 ML; Start 01/16/17 at 23:30 Dextrose (D50w Syringe) 50 ml Q15M PRN IV DECREASED GLUCOSE; Start 01/16/17 at 23:30 Glucagon (Glucagen) 1 mg Q15M PRN IM DECREASED GLUCOSE; Start 01/16/17 at 23:30 Glucose (Glutose) 15 gm Q15M PRN BUCCAL DECREASED GLUCOSE; Start 01/16/17 at 23 :30 Diagnostic Test (Pha) (Accu-Chek) 1 ea 02 XX ; Start 01/18/17 at 02:00 Latanoprost (Xalatan) 1 drop HS BOTH EYES Last administered on 01/19/17 22:03 ; Admin Dose 1 DROP; Start 01/17/17 at 21:00 Insulin Aspart (Novolog Insulin Pen) NOVOLOG *MILD* ALGORI... Q4 SC Last administered on 01/18/17 12:44; Admin Dose 1 UNIT; Start 01/17/17 at 21:00 Epoetin Raj (Epogen (Esrd)) 10,000 units TuThSa@17 SC Last administered on 17:03; Admin Dose 10,000 UNITS; Start 01/18/17 at 17:00 Ondansetron HCl (Zofran Inj) 4 mg Q6H PRN IV NAUSEA AND/OR VOMITING; Start at 00:30 Collagenase (Santyl) 1 applic DAILY TOP Last administered on 01/20/17 10:57; Admin Dose 1 APPLIC; Start 01/18/17 at 16:00 Collagenase 1 applic 1 applic PRN PRN TOP WOUND CARE; Start 01/18/17 at 15:00 Meropenem/Sodium Chloride (Merrem 500mg/50 ml(Pmx)) 50 ml @ 100 mls/hr DAILY@ 20 IVPB ; Start 01/20/17 at 20:00 Enoxaparin Sodium (Lovenox) 30 mg DAILY SC Last administered on 01/20/17 09:13 ; Admin Dose 30 MG; Start 01/20/17 at 09:00 Insulin Glargine 20 unit 20 unit DAILY@08 SC ; Start 01/21/17 at 08:00 Dextrose/Sodium Chloride (D5-1/2ns) 1,000 ml @ 60 mls/hr [id number] IV Last administered on 01/20/17 10:56; Admin Dose 60 MLS/HR; Start 01/20/17 at 09:30 Assessment/Plan Chief Complaint/Hosp Course Switch assessment 1. Severe sepsis likely polymicrobial 2. Status post thoracentesis 800 cc pleural fluid suggestive of transudative process given low protein however elevated LDH noted. Await cultures and cytology. 3. End-stage renal failure on hemodialysis 4. History ST elevation [place] 5. Recent recurrent hypoxemic respiratory failure 6. Dysphagia with G-tube Plan 1. Broad-spectrum antibiotics per infectious diseases 2. Supplemental O2 as needed 3. Wound care 4. Pleural fluid studies 5. Aspiration precautions Problems: ZANDRA ROBISON MD, [facility] Jan 20, 2017 15:30
--- NOTE | 2017-01-20 16:37 | PN ---
Date/Time of Note Date/Time of Note DATE: 01/20/17 TIME: 16:32 Assessment/Plan Lines/Catheters IV Catheter Type (from [facility]): PICC Line Rivas in Place (from [facility]): Yes Assessment/Plan Assessment/Plan [facility] Progress Note Date of Service: 01/20/17 Today's Impression & Plan: Overall has remained stable. Gallbladder: No new issues. Controlled with perc myron drain. 1. Plan is for laparoscopic cholecystectomy once the patient is medically stabilized (would likely take several weeks to months to accomplish). No further interventions needed at this time. 2, Will need drain care and education for patient and family as well as care home staff. Very important to flush the drain with 10 cc of normal saline once a day and record daily outputs. Feeding: Abdomen appears to be improving on the left side with mild to no discomfort. No indication for intervention for this at the moment. ? swallow test arranged for tomorrow (per patient's ; I placed a call to d/w Dr. Ash). Ideally, the patient will pass her test and will be able to resume oral feedings, in which case no other interventions would be needed. If the patient does not pass her swallow test, we will have to discuss alternate ways of feedings (possible attempts to regain access through the same PEG tube site versus new tube placement; option of nasogastric or nasojejunal tube feeding also exists although not ideal, especially in the outpatient setting). Awaiting input from gastroenterology as well. 1. Formal swallow test 2. Multidisciplinary discussion between surgery, interventional radiology, and gastroenterology Bowel activity: Patient has not had a recorded BM in the chart. Despite lack of oral intake, there should still be some stool formation. Will likely benefit from assistance from below 1. Bowel regimen scheduled until effect, then prn Overall, patient is doing reasonably well given the clinical picture and the extent of her problems. Urinary tract infection is being treated for E. coli. Her mood appears to be depressed and is thought to be appropriate given clinical situation and situational. Would benefit from occasional review from a medication standpoint. Despite her weight, the patient is likely malnourished and very important that the question of feeding gets answered as soon as possible. She is also extremely debilitated from a physical standpoint and very important for physical therapy to continue aggressively addressing this. With above assessment, I've recommended the following for today: 1. Keep in-house 2. Physical therapy involvement 3. Awaiting results of formal swallow evaluation with possible resumption of regular food intake if the patient passes her test 4. Check lab and correct electrolytes as needed 5. Targeted antimicrobial therapy based on culture results 6. Monitor for signs of sepsis since she is at high risk (elevated and rising white blood cell count) Thank you again for allowing us to participate in the care of this very pleasant lady and her wonderful family. If there are any questions, please feel free to contact me at [phone]. Please note that, given the extensive number of diagnoses or management options , the moderate to extensive amount and/or complexity of data needed to be reviewed, and I risk of complications and/or morbidity or mortality, this qualifies as high complexity type of decision-making. Disclaimer: Inadvertent spelling and grammatical errors are likely due to EHR/ dictation software use and do not reflect on the quality of delivered patient care. Also, please note that the electronic time recorded on this node does not necessarily reflect the actual time of the visit. Updated Clinical Summary: A very pleasant 71-year-old lady with multiple comorbid issues including BMI of 35.6 as well as what has been in the hospital since 09/2016 being found unresponsive and multiple issues including congestive heart failure, acute renal failure due to acute tubular necrosis requiring dialysis, urinary tract infection with bacteremia and multiple other issues, who was found to have possible signs of acute cholecystitis on recent imaging. D/c to [facility] ([place] ) 12/25/16. Readmitted to [facility] for abdominal wall pain on the left side on 01/16/2017. Urinary tract infection treated for E. coli. Thoracentesis with removal of approximately 1 L of fluid from her chest 2016. Percutaneous gallbladder drain exchange 01/18/2017. COMORBIDITIES: 1. BMI of 35.6. 2. Acute renal failure (ATN), on maintenance hemodialysis (Friday, , Friday). 3. Congestive heart failure. 4. Anemia. 5. Hypocalcemia. 6. Hypoalbuminemia and malnutrition. 7. Peripheral vascular disease with gangrene of toes of both feet. 8. Recent history of respiratory failure. 9. History of dysphagia requiring PEG placement and feedings. 10. Diabetes mellitus. 11. Leukocytosis from various sources. 12. Funguria with Erica glabrata and Erica albicans of the urine. 13. Escherichia coli and Enterococcus urinary tract infection 10/29/2016. 14. Escherichia coli bacteremia 12/02/2016 (x2 cultures). 15. Repeat culture of the urine 12/02/2016 with E. coli, enterococcus species and Klebsiella pneumoniae, extended-spectrum beta-lactamase. 16. Repeat bacteremia 12/08/2016 with Escherichia coli. 17. Urine positive for Erica albicans 12/11/2016. 18. Clostridium difficile colitis negative on a few stool samples. 19. Bilateral pleural effusions. 20. 2 mm calcified granuloma in the right lower lobe. 21. CT scan of abdomen and pelvis 12/13/2016 showing large amount of pericholecystic fluid with distention of the gallbladder, which could be of acute cholecystitis. 22. Tumefaction sludge, poorly visualized gallstones or soft tissue masses are suspected within the lumen of the distended gallbladder. 23. Anasarca. 24. Status post splenectomy. 25. A 2.8 cm left parapelvic cyst and an adjacent 1.4 cm simple cyst lateral upper portion of the lower third left kidney noted. 26. Atherosclerotic vascular disease. 27. Osteoarthritis of the thoracic and lumbosacral spine. 28. History of acute ST elevation myocardial infarction, inferior wall, status post code STEMI with stent placement, as well as temporary pacer wire. 29. Hyperlipidemia. 30. Possible aspiration pneumonia. 31. S/p CT-guided percutaneous transhepatic cholecystostomy drain placement 06/22, [facility] Subjective: No major events or complaints; no major abd pain; no reported major n/v/d; no sob or cp; + flatus; - BM; minimal activity. No new issues. Not able to stand on her own power. Objective: Vitals: See below Exam: GENERAL: On exam, the patient was laying in bed and appeared to be comfortable and in no acute distress. ABDOMEN: Soft, nontender and nondistended. There are no peritoneal signs or guarding. Perc GB drain with bilious output in the tubing. Minimal fluid in the accordion bag. SKIN: Skin appears to be pink and feels warm to touch. NEUROLOGIC: Patient is awake, alert, and follows commands appropriately. Exam/Review of Systems Vital Signs Vitals Vital Signs Date Time Temp Pulse Resp B/P Pulse Ox O2 Delivery O2 Flow Rate FiO2 7/17/17 16:15 152 01/20/17 15:42 97.7 16 102/66 99 01/20/17 08:13 3.0 01/20/17 08:00 Nasal Cannula 01/19/17 03:48 32 Intake and Output 01/19/17 01/19/17 01/20/17 14:59 22:59 06:59 Intake Total 700 ml 340 ml Output Total 3455 ml 100 ml 250 ml Balance -2755 ml 240 ml -250 ml Results Result Diagram: 01/20/17 0623 01/20/17 0623 SHANA ROSARIO M.D. Jan 20, 2017 16:37
[2017-01-20] MEDS ORDERED: BISACODYL 10 MG SUPP PR PRN (17:00)
[2017-01-20] MEDS ORDERED: NA PHOSPHATE/BIPHOS 133 ML ENEMA PR PRN (17:00)
[2017-01-20] MEDS ORDERED: LEVALBUTEROL (NEB) 0.63 MG/3 ML AMP ONE (18:57)
[2017-01-20] MEDS ORDERED: IPRATROPIUM (NEB) 0.5 MG/2.5 ML AMP ONE (18:57)
--- NOTE | 2017-01-20 19:46 | PN ---
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 Patient also has cholecystostomy given not an ideal candidate for surgery. Subcu emphysema, previous PEG tube site Pleural effusion Lung infiltrate Diabetes mellitus Coronary artery disease, status post cardiac arrest Tachycardia, chronic, Cholecystostomy, growing Klebsiella Anemia Renal failure Sacral ulcer GERD Hypertension Severe sepsis Altered mental status Dysphasia Lethargy Anoxic encephalopathy Plan -Multispecialty recommendations appreciated, pulmonology, gastroenterology, ID, nephrology -Continue antibiotics per infectious disease -Repeat chest x-ray tomorrow, pulmonology recommendations appreciated -Suctioning was successful today mild secretions, will reattempt swallow study -The patient does not pass swallow study, may have to reinsert PEG tube at the site, gastroenterology recommendations appreciated -Continue wound care -Patient has multiple comorbidities. Will need likely placement once medically stable -Continue cholecystostomy tube per surgery -May have to adjust medications if patient remains tachycardic. Marty Antonio DO Problems: Subjective 24 Hr Interval Summary Free Text/Dictation no acute complaints, patient lethargic, at baseline at bedside, answered all questions. Exam/Review of Systems Vital Signs Vitals Vital Signs Date Time Temp Pulse Resp B/P Pulse Ox O2 Delivery O2 Flow Rate FiO2 01/20/17 16:15 152 01/20/17 15:42 97.7 16 102/66 99 01/20/17 08:13 3.0 01/20/17 08:00 Nasal Cannula 01/19/17 03:48 32 Intake and Output 01/19/17 01/19/17 01/20/17 15:00 23:00 07:00 Intake Total 700 ml 340 ml Output Total 3455 ml 100 ml 250 ml Balance -2755 ml 240 ml -250 ml Exam Physical exam General: Patient is laying in bed, lethargic Mentation: Patient is alert and oriented to self Head: Normocephalic atraumatic Eyes: EOMI, pupils reactive to light Neck: Supple, nontender, midline Respiratory: course to auscultation bilaterally, minimal effort Cardiovascular:tachycardic, no obvious murmurs Gastrointestinal: non-tender to palpation, bowel sounds heard. drain on R flank. previous PEG tube site healing with bandage. Neurological: Moves all extremities spontaneously, minimal effort Skin: abrasions on forearms bilaterally Results Result Diagram: 01/20/17 0623 01/20/17 0623 Results 24 hrs Laboratory Tests Test 01/19/17 22:03 01/20/17 01:18 01/20/17 05:56 01/20/17 06:23 Bedside Glucose 103 90 66 L White Blood Count 20.7 H Red Blood Count 2.99 L Hemoglobin 8.2 L Hematocrit 28.0 L Mean Corpuscular Volume 93.6 Mean Corpuscular Hemoglobin 27.4 L Mean Corpuscular Hemoglobin Concent 29.3 L Red Cell Distribution Width 19.9 H Platelet Count 299 Mean Platelet Volume 9.8 Neutrophils % 83.1 H Lymphocytes % 10.1 L Monocytes % 3.9 Eosinophils % 0.6 Basophils % 0.2 Nucleated Red Blood Cells % 0.2 H Neutrophils # 17.2 H Lymphocytes # 2.1 Monocytes # 0.8 Eosinophils # 0.1 Basophils # 0.1 Nucleated Red Blood Cells # 0.1 H Sodium Level 141 Potassium Level 3.3 L Chloride Level 101 Carbon Dioxide Level 26 Anion Gap 17 H Blood Urea Nitrogen 35 H Creatinine 1.34 H Glucose Level 44 #*L Calcium Level 8.2 L Total Bilirubin 0.0 L Direct Bilirubin 0.00 Indirect Bilirubin 0.0 Aspartate Amino Transf (AST/SGOT) 23 Alanine Aminotransferase (ALT/SGPT) 31 Alkaline Phosphatase 283 H Total Protein 5.7 L Albumin 2.5 L Globulin 3.20 Albumin/Globulin Ratio 0.78 Test 01/20/17 06:39 01/20/17 09:00 01/20/17 09:38 01/20/17 10:52 Bedside Glucose 130 66 L 98 82 Test 01/20/17 13:55 01/20/17 17:19 Bedside Glucose 117 143 Medications Medications Current Medications Metoprolol Tartrate (Lopressor) 2.5 mg BID IV Last administered on 01/19/17t 09 :30; Admin Dose 2.5 MG; Start 01/17/17 at 09:00 Miscellaneous Information 1 ea NOTE XX ; Start 01/16/17 at 23:30 Glucose (Glutose) 15 gm Q15M PRN PO DECREASED GLUCOSE; Start 01/16/17 at 23:30 Glucose (Glutose) 22.5 gm Q15M PRN PO DECREASED GLUCOSE; Start 01/16/17 at 23: 30 Dextrose (D50w Syringe) 25 ml Q15M PRN IV DECREASED GLUCOSE Last administered on 01/20/17 09:08; Admin Dose 25 ML; Start 01/16/17 at 23:30 Dextrose (D50w Syringe) 50 ml Q15M PRN IV DECREASED GLUCOSE; Start 01/16/17 at 23:30 Glucagon (Glucagen) 1 mg Q15M PRN IM DECREASED GLUCOSE; Start 01/16/17 at 23:30 Glucose (Glutose) 15 gm Q15M PRN BUCCAL DECREASED GLUCOSE; Start 01/16/17 at 23 :30 Diagnostic Test (Pha) (Accu-Chek) 1 ea 02 XX ; Start 01/18/17 at 02:00 Latanoprost (Xalatan) 1 drop HS BOTH EYES Last administered on 01/19/17 22:03 ; Admin Dose 1 DROP; Start 01/17/17 at 21:00 Insulin Aspart (Novolog Insulin Pen) NOVOLOG *MILD* ALGORI... Q4 SC Last administered on 01/20/17 18:37; Admin Dose 1 UNIT; Start 01/17/17 at 21:00 Epoetin Raj (Epogen (Esrd)) 10,000 units TuThSa@17 SC Last administered on 17:03; Admin Dose 10,000 UNITS; Start 01/18/17 at 17:00 Ondansetron HCl (Zofran Inj) 4 mg Q6H PRN IV NAUSEA AND/OR VOMITING; Start at 00:30 Collagenase (Santyl) 1 applic DAILY TOP Last administered on 01/20/17 10:57; Admin Dose 1 APPLIC; Start 01/18/17 at 16:00 Collagenase 1 applic 1 applic PRN PRN TOP WOUND CARE; Start 01/18/17 at 15:00 Meropenem/Sodium Chloride (Merrem 500mg/50 ml(Pmx)) 50 ml @ 100 mls/hr DAILY@ 20 IVPB ; Start 01/20/17 at 20:00 Enoxaparin Sodium (Lovenox) 30 mg DAILY SC Last administered on 01/20/17 09:13 ; Admin Dose 30 MG; Start 01/20/17 at 09:00 Insulin Glargine 20 unit 20 unit DAILY@08 SC ; Start 01/21/17 at 08:00 Dextrose/Sodium Chloride (D5-1/2ns) 1,000 ml @ 60 mls/hr [id number] IV Last administered on 01/20/17t 10:56; Admin Dose 60 MLS/HR; Start 01/20/17 at 09:30 Bisacodyl (Dulcolax Supp) 10 mg BID PRN [place] CONSTIPATION; Start 01/20/17 at 17: 00 Sodium Biphosphate/ Sodium Phosphate (Fleet Enema) 133 ml BID PRN [place] CONSTIPATION; Start 01/20/17 at 17:00 MARTY ANTONIO Jan 20, 2017 19:45
[2017-01-20] MEDS: IPRATROPIUM (NEB) 0.5 MG/2.5 ML AMP HHN SCH (20:38)
[2017-01-20] MEDS: LEVALBUTEROL (NEB) 0.31 MG/3 ML AMP HHN SCH (20:42)
[2017-01-20] MEDS: MEROPENEM 500MG/50 ML (PMX) 50 ML IVPB SCH (22:45)
[2017-01-20] MEDS: LATANOPROST 0.005% 2.5 ML OPH BOTH EYES SCH (22:46)
[2017-01-21] VITALS (11 sets, daily range): BP systolic 98–116; BP diastolic 51–67; PULSE 90–100; RESP 16–18
[2017-01-21] MEDS: INSULIN ASPART [NOVOLOG] 3 ML PEN SC SCH ×6 (01:00→21:32)
[2017-01-21] MEDS: IPRATROPIUM (NEB) 0.5 MG/2.5 ML AMP HHN SCH ×4 (02:02→19:29)
[2017-01-21] MEDS: LEVALBUTEROL (NEB) 0.31 MG/3 ML AMP HHN SCH ×4 (02:02→19:29)
[2017-01-21] MEDS: DEXTROSE 5%-0.45% NACL 1,000 ML IV SCH ×2 (02:51→18:50)
[2017-01-21] MEDS: ACCUCHECK AT 2AM (Patients on SS coverage) XX SCH (02:51)
--- NOTE | 2017-01-21 03:38 | HP ---
DATE OF ADMISSION: 01/16/2017 ADMISSION DIAGNOSIS: Sepsis. HISTORY OF PRESENT ILLNESS: This is a 72-year-old female who was recently in the hospital for a couple of months in September 2016. Initially, she had a cardiac arrest, was on a ventilator, went into acute renal failure needing dialysis. She had a cholecystitis requiring surgery but due to instability, had a cholecystotomy drain placed, a G-tube placed. Also, had a myocardial infarction and required stent placement. She was discharged to a longterm facility and was receiving outpatient hemodialysis three times a week, but suddenly developed abdominal pain. She came into the emergency room with a fever and it was noted by CAT scan that her G-tube was partially out. She was having a subcutaneous emphysema due to the dislodged PEG. The patient also with elevated WBC, increased pulse, and temperature. PAST MEDICAL HISTORY: Hospitalization in September 2016, dialysis three times a week, PEG tube, myocardial infarction with stent, encephalopathy, cholecystitis with a cholecystotomy drain in place, cardiac arrest, anemia requiring multiple transfusions, her normal of diabetes type 2, hypertension, atrial fibrillation, bradycardia, congestive heart failure, peripheral vascular disease, depression, anxiety, and glaucoma. FAMILY HISTORY: Noncontributory. MEDICATIONS: At her longterm facility as reported: 1. Metoprolol 25 two times a day. 2. Lexapro 10 mg daily. 3. Lantus 36 mg bedtime. 4. Baby aspirin. 5. Xanax 0.25 p.r.n. 6. Reglan 5 mg a.c. 7. Clopidogrel 75 mg daily. 8. Lots of vitamins. 9. Bisacodyl. 10. Lactulose. ALLERGIES: CODEINE. PHYSICAL EXAMINATION: VITAL SIGNS: Temperature 99.5, blood pressure 115/57, pulse 111, respirations from 20 to 36, pulse ox on 3 liters is 96%. GENERAL APPEARANCE: The patient is in no acute distress. She is able to respond with single words to questions. Appears to be appropriate. CARDIAC: Regular rate. LUNGS: Clear to auscultation. EXTREMITIES: All at 1+ pitting edema. ABDOMEN: Obese. G-tube site bandaged from the removal of the G- tube. Gallbladder tube in place. LABORATORY TESTS: WBC is 28. Hemoglobin 8.4. Platelets 346 with neutrophils at 83%. Sodium 131, potassium 2.8, creatinine 1.03, with BUN of 26. Glucose is 144. AST and ALT are 33 and 43. Lactate is at 3.0, repeated at 2.2. CT scan demonstrates a G-tube in the subcu tissue, causing emphysematous changes. Abdominal x-ray shows a right upper quadrant subcu emphysema. ASSESSMENT AND PLAN:: 1. GI: The G-tube has been removed. Dr. Helm has been called. The family reports that the patient did swallow the previous day, and seems that she could take p.o. intake. Video swallow and/or swallow exam to be performed. Questionable is does the G-tube need to be placed. GI is consulted regarding this. 2. End-stage renal disease on dialysis three times a week. Currently her creatinine is perfect. She is edematous, making some urine. Renal reports that there is a possibility that the kidney function may come back. Currently they are going to be starting her on diuresis by IV, and will determine later if she requires further dialysis. Epogen to be given for her anemia. 3. Coronary artery disease, status post myocardial infarction with stent. Her alteration tailor apprentice has been called. The patient's G- tube is not in place. Unclear if she is able to take p.o. meds at this time. IV beta-danyel has been restarted. Cardiology is following. Diuresis is being started. 4. Diabetes. The patient is usually on Lantus 36 subcu. Will decrease it to 30. Get Accu-Cheks and place her on a sliding scale. 5. Cholecystitis with a drain currently in place. Her surgeon has been notified. The patient is being admitted. We will determine what needs to be done for this. Dictated By: Dylan Ash MD /sari/dafne /Document#: [id number]
--- NOTE | 2017-01-21 07:01 | CONS ---
Date/Time of Note Date/Time of Note DATE: 01/21/17 TIME: 06:59 Assessment/Plan Assessment/Plan Chief Complaint/Hosp Course 1) SubQ emphysema due to dislodged g-tube culture the wound site and continue with vanco/zosyn 01/18 - g-tube wound cx is NGTD 01/19 - g-tube wound cx has scant CoNS, doubt this is significant 01/20 - await decision regarding g-tube re-insertion 01/21 - pt is too lethargic for swallow eval to be done, re-attempt today 2) choleycystitis pt has had a drain in place for this until she is ready for surgery will cx the fluid that is present 01/18 - AMBROSE drain cx has growth but too young continue with vanco/zosyn CT showed distending GB and gallstones but no fluid around the GB 01/19 - AMBROSE drain is growing regular klebsiella and MRSA due to kleb +ESBL in urine will change zosyn to merrem, to continue with vanco contact isolation ordered 01/20 - continue with vanco/merrem at present 3) recent STEMI and hx of CABG 4) renal failure pt has very good creatinine but is still receiving dialysis she also has distended bladder by CT will get u/a and urine cx, nurse to straight cath vanco/zosyn should cover 5) sacral ulcer unable to see nurse to get picture 01/18 - no sign for infection according to notes 6) UTI 01/18 - pus is coming out from guevara urine cx is growing GNR continue with zosyn as WBC is decreasing 01/19 - urine cx has kleb +ESBL change zosyn to merrem merrem to be given after HD on dialysis days 01/20 - no change 01/21 - pt's urine output is picking up 7) R pleural effusion with possible consolidation 01/18 - no phlegm production on vanco/zosyn at present will order nasal for MRSA pt to possibly get R thorancentesis 01/19 - pleural fluid does not appear to be infected with low WBC count and less than 50% PMN's will check LDH in serum to verify if exudative or transudative 01/20 - LDH results consistent with exudative process, cx remain NGTD 01/21 - pleural fluid cx remains NGTD 8) 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 01/20 - no sign of cellulitis around these toes Problems: Consultation Date/Type/Reason Admit Date/Time Jan 16, 2017 at 22:45 Initial Consult Date 01/17/17 Type of Consultation: ID Referring Provider: SHAMA LOPEZ MD 24 HR Interval Summary Free Text/Dictation spoke to nurse unable to get swallow eval because pt is too lethargic no D, V pt still NPO Exam/Review of Systems Vital Signs Vitals Vital Signs Date Time Temp Pulse Resp B/P Pulse Ox O2 Delivery O2 Flow Rate FiO2 01/21/17 04:24 92 01/21/17 03:50 98.6 17 108/51 100 01/21/17 02:08 2.0 01/21/17 02:08 Nasal Cannula 01/19/17 03:48 32 Intake and Output 01/20/17 01/20/17 01/21/17 15:00 23:00 07:00 Intake Total 500 ml Output Total 4000 ml 555 ml 350 ml Balance -3500 ml -555 ml -350 ml Exam Constitutional: non-verbal Respiratory: clear to auscultation Cardiovascular: regular rate and rhythm Gastrointestinal: non-tender, other (abd is less distended, no redness around where g-tube site was), soft Results Result Diagram: 01/20/1762201/20/17622 Results 24 hrs Laboratory Tests Test 01/20/17 09:00 01/20/17 09:38 01/20/17 10:52 01/20/17 13:55 Bedside Glucose 66 L 98 82 117 Test 01/20/17 17:19 01/20/17 22:49 01/21/17 02:43 01/21/17 05:58 Bedside Glucose 143 167 152 158 Medications Medications Current Medications Metoprolol Tartrate (Lopressor) 2.5 mg BID IV Last administered on 01/19/17t 09 :30; Admin Dose 2.5 MG; Start 01/17/17 at 09:00 Miscellaneous Information 1 ea NOTE XX ; Start 01/16/17 at 23:30 Glucose (Glutose) 15 gm Q15M PRN PO DECREASED GLUCOSE; Start 01/16/17 at 23:30 Glucose (Glutose) 22.5 gm Q15M PRN PO DECREASED GLUCOSE; Start 01/16/17 at 23: 30 Dextrose (D50w Syringe) 25 ml Q15M PRN IV DECREASED GLUCOSE Last administered on 01/20/17 09:08; Admin Dose 25 ML; Start 01/16/17 at 23:30 Dextrose (D50w Syringe) 50 ml Q15M PRN IV DECREASED GLUCOSE; Start 01/16/17 at 23:30 Glucagon (Glucagen) 1 mg Q15M PRN IM DECREASED GLUCOSE; Start 01/16/17 at 23:30 Glucose (Glutose) 15 gm Q15M PRN BUCCAL DECREASED GLUCOSE; Start 01/16/17 at 23 :30 Diagnostic Test (Pha) (Accu-Chek) 1 ea 02 XX Last administered on 01/21/17 02: 51; Admin Dose 1 EA; Start 01/18/17 at 02:00 Latanoprost (Xalatan) 1 drop HS BOTH EYES Last administered on 01/20/17 22:46 ; Admin Dose 1 DROP; Start 01/17/17 at 21:00 Insulin Aspart (Novolog Insulin Pen) NOVOLOG *MILD* ALGORI... Q4 SC Last administered on 01/21/17 06:17; Admin Dose 1 UNIT; Start 01/17/17 at 21:00 Epoetin Raj (Epogen (Esrd)) 10,000 units TuThSa@17 SC Last administered on 17:03; Admin Dose 10,000 UNITS; Start 01/18/17 at 17:00 Ondansetron HCl (Zofran Inj) 4 mg Q6H PRN IV NAUSEA AND/OR VOMITING; Start at 00:30 Collagenase (Santyl) 1 applic DAILY TOP Last administered on 01/20/17 10:57; Admin Dose 1 APPLIC; Start 01/18/17 at 16:00 Collagenase 1 applic 1 applic PRN PRN TOP WOUND CARE; Start 01/18/17 at 15:00 Meropenem/Sodium Chloride (Merrem 500mg/50 ml(Pmx)) 50 ml @ 100 mls/hr DAILY@ 20 IVPB Last administered on 01/20/17 22:45; Admin Dose 100 MLS/HR; Start at 20:00 Enoxaparin Sodium (Lovenox) 30 mg DAILY SC Last administered on 01/20/17 09:13 ; Admin Dose 30 MG; Start 01/20/17 at 09:00 Insulin Glargine 20 unit 20 unit DAILY@08 SC ; Start 01/21/17 at 08:00 Dextrose/Sodium Chloride (D5-1/2ns) 1,000 ml @ 60 mls/hr [id number] IV Last administered on 01/21/17t 02:51; Admin Dose 60 MLS/HR; Start 01/20/17 at 09:30 Bisacodyl (Dulcolax Supp) 10 mg BID PRN [place] CONSTIPATION; Start 01/20/17 at 17: 00 Sodium Biphosphate/ Sodium Phosphate (Fleet Enema) 133 ml BID PRN [place] CONSTIPATION; Start 01/20/17 at 17:00 TR GOODEN MD Jan 21, 2017 07:01
[2017-01-21 07:22] LABS: ADD SCAN DIFF NO
[2017-01-21 07:35] LABS: ABNORMAL IP MESSAGE 1; BASOPHILS % 0.2 % (0.0-2.0); EOSINOPHILS # 0.1 10^3/ul (0.0-0.5); EOSINOPHILS % 0.5 % (0.0-7.0); HEMOGLOBIN 8.2 g/dl (12.0-16.0); LYMPHOCYTES # 1.9 10^3/ul (0.8-2.9); LYMPHOCYTES % 12.2 % (15.0-51.0); MEAN CORPUSCULAR HEMOGLOBIN 26.8 pg (29.0-33.0); MEAN CORPUSCULAR HGB CONC 28.3 g/dl (32.0-37.0); MEAN CORPUSCULAR VOLUME 94.8 fl (82.0-101.0); MEAN PLATELET VOLUME 9.5 fl (7.4-10.4); MONOCYTE # 0.9 10^3/ul (0.3-0.9); MONOCYTES % 5.3 % (0.0-11.0); NEUTROPHIL # 12.2 10^3/ul (1.6-7.5); NEUTROPHILS % 76.6 % (39.0-77.0); NUCLEATED RED BLOOD CELLS # 0.1 10^3/ul (0.0-0.0); NUCLEATED RED BLOOD CELLS% 0.3 /100WBC (0.0-0.0); PLATELET COUNT 285 10^3/UL (140-415); RED BLOOD COUNT 3.06 10^6/ul (4.20-5.40); RED CELL DISTRIBUTION WIDTH 19.8 % (11.5-14.5); WHITE BLOOD COUNT 15.9 10^3/ul (4.8-10.8)
[2017-01-21 07:48] LABS: ALBUMIN/GLOBULIN RATIO 0.64; CALCIUM 7.8 mg/dl (8.4-10.2); CREATININE 1.44 mg/dl (0.44-1.00); TOTAL PROTEIN 5.1 g/dl (6.1-8.1)
[2017-01-21 07:54] LABS: CALCIUM 8.3 mg/dl (8.4-10.2); CREATININE 1.44 mg/dl (0.44-1.00); POTASSIUM 3.8 mmol/L (3.5-5.1)
[2017-01-21] MEDS: METOPROLOL 5 MG INJ IV SCH ×2 (07:54→21:16)
[2017-01-21] MEDS: COLLAGENASE 30 GM TUBE TOP SCH (07:57)
[2017-01-21] MEDS: ENOXAPARIN 30 MG/0.3 ML SYG SC SCH (08:04)
[2017-01-21] MEDS: INSULIN GLARGINE [LANtus] 3 ML PEN SC SCH (11:04)
--- NOTE | 2017-01-21 11:11 | CONS ---
Date/Time of Note Date/Time of Note DATE: 01/21/17 TIME: 11:10 Consult Date/Type/Reason Admit Date/Time Jan 16, 2017 at 22:45 Initial Consult Date 01/18/17 Type of Consultation: Pulmonary Ordering Provider: SHAMA LOPEZ MD Subjective No significant changes significant neuromuscular weakness G-tube is been displaced Objective Vital Signs Date Time Temp Pulse Resp B/P Pulse Ox O2 Delivery O2 Flow Rate FiO2 01/21/17 08:45 100 2.0 01/21/17 08:45 88 18 Nasal Cannula 01/21/17 07:21 97.9 110/66 01/19/17 03:48 32 Intake and Output 01/20/17 01/20/17 01/21/17 14:59 22:59 06:59 Intake Total 500 ml Output Total 4000 ml 555 ml 350 ml Balance -3500 ml -555 ml -350 ml Exam GENERAL: Chronically ill-appearing lady comfortable at rest no acute distress VITAL SIGNS: per chart NECK: Supple. No JVD or lymphadenopathy. CARDIAC EXAM: S1, S2. No added sounds or murmurs. CHEST: Diminished air entry both lung fairchild poor inspiratory effort ABDOMEN: Soft, nontender. No guarding or rebound. EXTREMITIES: No cyanosis, clubbing edema +2 NEUROLOGIC: Generalized weakness. Results/Medications Result Diagram: 01/21/1762701/21/17 0628 Results 24 hrs Laboratory Tests Test 01/20/17 13:55 01/20/17 17:19 01/20/17 22:49 01/21/17 02:43 Bedside Glucose 117 143 167 152 Test 01/21/17 05:58 01/21/17 06:28 01/21/17 07:52 01/21/17 11:00 Bedside Glucose 158 171 178 White Blood Count 15.9 #H Red Blood Count 3.06 L Hemoglobin 8.2 L Hematocrit 29.0 L Mean Corpuscular Volume 94.8 Mean Corpuscular Hemoglobin 26.8 L Mean Corpuscular Hemoglobin Concent 28.3 L Red Cell Distribution Width 19.8 H Platelet Count 285 Mean Platelet Volume 9.5 Neutrophils % 76.6 Lymphocytes % 12.2 L Monocytes % 5.3 Eosinophils % 0.5 Basophils % 0.2 Nucleated Red Blood Cells % 0.3 H Neutrophils # 12.2 H Lymphocytes # 1.9 Monocytes # 0.9 Eosinophils # 0.1 Basophils # 0.0 Nucleated Red Blood Cells # 0.1 H Sodium Level 141 Potassium Level 4.0 Chloride Level 104 Carbon Dioxide Level 24 Anion Gap 17 H Blood Urea Nitrogen 36 H Creatinine 1.44 H Glucose Level 148 Calcium Level 7.8 L Total Bilirubin 0.0 L Direct Bilirubin 0.00 Indirect Bilirubin 0.0 Aspartate Amino Transf (AST/SGOT) 22 Alanine Aminotransferase (ALT/SGPT) 26 Alkaline Phosphatase 298 H Total Protein 5.1 L Albumin 2.0 L Globulin 3.10 Albumin/Globulin Ratio 0.64 Medications Current Medications Metoprolol Tartrate (Lopressor) 2.5 mg BID IV Last administered on 01/21/17 07 :54; Admin Dose 2.5 MG; Start 01/17/17 at 09:00 Miscellaneous Information 1 ea NOTE XX ; Start 01/16/17 at 23:30 Glucose (Glutose) 15 gm Q15M PRN PO DECREASED GLUCOSE; Start 01/16/17 at 23:30 Glucose (Glutose) 22.5 gm Q15M PRN PO DECREASED GLUCOSE; Start 01/16/17 at 23: 30 Dextrose (D50w Syringe) 25 ml Q15M PRN IV DECREASED GLUCOSE Last administered on 01/20/17 09:08; Admin Dose 25 ML; Start 01/16/17 at 23:30 Dextrose (D50w Syringe) 50 ml Q15M PRN IV DECREASED GLUCOSE; Start 01/16/17 at 23:30 Glucagon (Glucagen) 1 mg Q15M PRN IM DECREASED GLUCOSE; Start 01/16/17 at 23:30 Glucose (Glutose) 15 gm Q15M PRN BUCCAL DECREASED GLUCOSE; Start 01/16/17 at 23 :30 Diagnostic Test (Pha) (Accu-Chek) 1 ea 02 XX Last administered on 01/21/17 02: 51; Admin Dose 1 EA; Start 01/18/17 at 02:00 Latanoprost (Xalatan) 1 drop HS BOTH EYES Last administered on 01/20/17 22:46 ; Admin Dose 1 DROP; Start 01/17/17 at 21:00 Insulin Aspart (Novolog Insulin Pen) NOVOLOG *MILD* ALGORI... Q4 SC Last administered on 01/21/17 07:56; Admin Dose 1 UNIT; Start 01/17/17 at 21:00 Epoetin Raj (Epogen (Esrd)) 10,000 units TuThSa@17 SC Last administered on 17:03; Admin Dose 10,000 UNITS; Start 01/18/17 at 17:00 Ondansetron HCl (Zofran Inj) 4 mg Q6H PRN IV NAUSEA AND/OR VOMITING; Start at 00:30 Collagenase (Santyl) 1 applic DAILY TOP Last administered on 01/21/17 07:57; Admin Dose 1 APPLIC; Start 01/18/17 at 16:00 Collagenase 1 applic 1 applic PRN PRN TOP WOUND CARE; Start 01/18/17 at 15:00 Meropenem/Sodium Chloride (Merrem 500mg/50 ml(Pmx)) 50 ml @ 100 mls/hr DAILY@ 20 IVPB Last administered on 01/20/17 22:45; Admin Dose 100 MLS/HR; Start at 20:00 Enoxaparin Sodium (Lovenox) 30 mg DAILY SC Last administered on 01/21/17 08:04 ; Admin Dose 30 MG; Start 01/20/17 at 09:00 Insulin Glargine 20 unit 20 unit DAILY@08 SC Last administered on 01/21/17 11: 04; Admin Dose 20 UNIT; Start 01/21/17 at 08:00 Dextrose/Sodium Chloride (D5-1/2ns) 1,000 ml @ 60 mls/hr [id number] IV Last administered on 01/21/17 02:51; Admin Dose 60 MLS/HR; Start 01/20/17 at 09:30 Bisacodyl (Dulcolax Supp) 10 mg BID PRN [place] CONSTIPATION; Start 01/20/17 at 17: 00 Sodium Biphosphate/ Sodium Phosphate (Fleet Enema) 133 ml BID PRN [place] CONSTIPATION; Start 01/20/17 at 17:00 Assessment/Plan Chief Complaint/Hosp Course Switch assessment 1. Severe sepsis likely polymicrobial 2. Status post thoracentesis 800 cc pleural fluid suggestive of transudative process given low protein however elevated LDH noted. Await cultures and cytology. 3. End-stage renal failure on hemodialysis 4. History ST elevation [place] 5. Recent recurrent hypoxemic respiratory failure 6. Dysphagia G-tube has been dislodged. Patient has significant aspiration risk Plan 1. Broad-spectrum antibiotics per infectious diseases 2. Supplemental O2 as needed 3. Wound care 4. Pleural fluid studies 5. Aspiration precautions 6. Would replace G-tube as patient remains at significant aspiration risk and is unlikely that she can meet her nutritional requirements with minimal p.o. intake that she would be able to take. Problems: ZANDRA ROBISON MD, [facility] Jan 21, 2017 11:11
--- NOTE | 2017-01-21 12:42 | PN ---
Date/Time of Note Date/Time of Note DATE: 01/21/17 TIME: 12:36 Assessment/Plan VTE Prophylaxis VTE Prophylaxis Intervention: LMWH Lines/Catheters IV Catheter Type (from Nrs): PICC Line Central line still needed: Yes Urinary Cath still in place: Yes Reason Cath still needed: other (indicate) Assessment/Plan Assessment/Plan 01/21 surg reports ok for gtube replace. gi reports will plan to place in am. cr increased 1.3 to 1.4. choking on apple sauce yesterday. 01/20 dialysis today, low sugar overall bad day today. 01/19gi- awaiting consult for replacement of g-tube. pt not appear to be able to take po nutrition appropriately. 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 dr lopez notified. -lawrence changed and growing klebsiella---id following and changing abx. -id following and pt on vanco/zosyn---now changed due to klebsiella to vanco/ merrem -gi eval and reports plan to replace g-tube in the am. surg reports wants g- tube placed for nutrition to be restarted. renal- pt producing some urine. renal following and questioning if functionality has improved. fluid overloaded, being diuresed. dialysis restarting. epogen given. cr going up. pulm has a right lung infiltrate and mod effusion. pulm following tapped for 1 liter removed. abx changed. dm- on sliding scale. no nutrition yet, sugar running low- lantis decreased. d5 running. cv- h/o arrest, stent ME, cards following. b-danyel restarted. cholecystostomy- surg following and drain changed and growing klebsiella. anemia- discussed with renal if transfusion is necessary. pt given epogen. renal to watch. low in FE. awaiting it g-tube to be reinserted or other source for feeding. hgb better 8.2. poor iv access. picc placed. Exam/Review of Systems Vital Signs Vitals Vital Signs Date Time Temp Pulse Resp B/P Pulse Ox O2 Delivery O2 Flow Rate FiO2 01/21/17 12:03 93 01/21/17 11:33 98.3 18 116/67 97 01/21/17 08:45 2.0 01/21/17 08:45 Nasal Cannula 01/19/17 03:48 32 Intake and Output 01/20/17 01/20/17 01/21/17 15:00 23:00 07:00 Intake Total 500 ml Output Total 4000 ml 555 ml 350 ml Balance -3500 ml -555 ml -350 ml Results Result Diagram: 01/21/17 0628 01/21/17 0628 Results 24 hrs Laboratory Tests Test 01/20/17 13:55 01/20/17 17:19 01/20/17 22:49 01/21/17 02:43 Bedside Glucose 117 143 167 152 Test 01/21/17 05:58 01/21/17 06:28 01/21/17 07:52 01/21/17 11:00 Bedside Glucose 158 171 178 White Blood Count 15.9 #H Red Blood Count 3.06 L Hemoglobin 8.2 L Hematocrit 29.0 L Mean Corpuscular Volume 94.8 Mean Corpuscular Hemoglobin 26.8 L Mean Corpuscular Hemoglobin Concent 28.3 L Red Cell Distribution Width 19.8 H Platelet Count 285 Mean Platelet Volume 9.5 Neutrophils % 76.6 Lymphocytes % 12.2 L Monocytes % 5.3 Eosinophils % 0.5 Basophils % 0.2 Nucleated Red Blood Cells % 0.3 H Neutrophils # 12.2 H Lymphocytes # 1.9 Monocytes # 0.9 Eosinophils # 0.1 Basophils # 0.0 Nucleated Red Blood Cells # 0.1 H Sodium Level 141 Potassium Level 4.0 Chloride Level 104 Carbon Dioxide Level 24 Anion Gap 17 H Blood Urea Nitrogen 36 H Creatinine 1.44 H Glucose Level 148 Calcium Level 7.8 L Total Bilirubin 0.0 L Direct Bilirubin 0.00 Indirect Bilirubin 0.0 Aspartate Amino Transf (AST/SGOT) 22 Alanine Aminotransferase (ALT/SGPT) 26 Alkaline Phosphatase 298 H Total Protein 5.1 L Albumin 2.0 L Globulin 3.10 Albumin/Globulin Ratio 0.64 Medications Medications Current Medications Metoprolol Tartrate (Lopressor) 2.5 mg BID IV Last administered on 01/21/17t 07 :54; Admin Dose 2.5 MG; Start 01/17/17 at 09:00 Miscellaneous Information 1 ea NOTE XX ; Start 01/16/17 at 23:30 Glucose (Glutose) 15 gm Q15M PRN PO DECREASED GLUCOSE; Start 01/16/17 at 23:30 Glucose (Glutose) 22.5 gm Q15M PRN PO DECREASED GLUCOSE; Start 01/16/17 at 23: 30 Dextrose (D50w Syringe) 25 ml Q15M PRN IV DECREASED GLUCOSE Last administered on 01/20/17 09:08; Admin Dose 25 ML; Start 01/16/17 at 23:30 Dextrose (D50w Syringe) 50 ml Q15M PRN IV DECREASED GLUCOSE; Start 01/16/17 at 23:30 Glucagon (Glucagen) 1 mg Q15M PRN IM DECREASED GLUCOSE; Start 01/16/17 at 23:30 Glucose (Glutose) 15 gm Q15M PRN BUCCAL DECREASED GLUCOSE; Start 01/16/17 at 23 :30 Diagnostic Test (Pha) (Accu-Chek) 1 ea 02 XX Last administered on 01/21/17 02: 51; Admin Dose 1 EA; Start 01/18/17 at 02:00 Latanoprost (Xalatan) 1 drop HS BOTH EYES Last administered on 01/20/17 22:46 ; Admin Dose 1 DROP; Start 01/17/17 at 21:00 Insulin Aspart (Novolog Insulin Pen) NOVOLOG *MILD* ALGORI... Q4 SC Last administered on 01/21/17 07:56; Admin Dose 1 UNIT; Start 01/17/17 at 21:00 Epoetin Raj (Epogen (Esrd)) 10,000 units TuThSa@17 SC Last administered on 17:03; Admin Dose 10,000 UNITS; Start 01/18/17 at 17:00 Ondansetron HCl (Zofran Inj) 4 mg Q6H PRN IV NAUSEA AND/OR VOMITING; Start at 00:30 Collagenase (Santyl) 1 applic DAILY TOP Last administered on 01/21/17 07:57; Admin Dose 1 APPLIC; Start 01/18/17 at 16:00 Collagenase 1 applic 1 applic PRN PRN TOP WOUND CARE; Start 01/18/17 at 15:00 Meropenem/Sodium Chloride (Merrem 500mg/50 ml(Pmx)) 50 ml @ 100 mls/hr DAILY@ 20 IVPB Last administered on 01/20/17 22:45; Admin Dose 100 MLS/HR; Start at 20:00 Enoxaparin Sodium (Lovenox) 30 mg DAILY SC Last administered on 01/21/17 08:04 ; Admin Dose 30 MG; Start 01/20/17 at 09:00 Insulin Glargine 20 unit 20 unit DAILY@08 SC Last administered on 01/21/17 11: 04; Admin Dose 20 UNIT; Start 01/21/17 at 08:00 Dextrose/Sodium Chloride (D5-1/2ns) 1,000 ml @ 60 mls/hr [id number] IV Last administered on 01/21/17 02:51; Admin Dose 60 MLS/HR; Start 01/20/17 at 09:30 Bisacodyl (Dulcolax Supp) 10 mg BID PRN [place] CONSTIPATION; Start 01/20/17 at 17: 00 Sodium Biphosphate/ Sodium Phosphate (Fleet Enema) 133 ml BID PRN [place] CONSTIPATION; Start 01/20/17 at 17:00 SHAW SRINIVASAN MD Jan 21, 2017 12:41
--- NOTE | 2017-01-21 12:46 | RADRPT ---
PROCEDURE: XR Chest. CLINICAL INDICATION: Shortness of breath. TECHNIQUE: Single frontal view. COMPARISON: 01/19/2017. FINDINGS: There is a right arm PICC line with the tip in the lower superior vena cava. There is mild atelectas is at the lung bases with right worse than left. The appearance is unchanged. The heart size is normal. There is a moderate right pleural effusion, unchanged. There is no pneumothorax. IMPRESSION: 1. No change from 01/19/2017. RPTAT: QQ .Arnaldo Back MD, MD Date Time Electronically viewed and signed by .Arnaldo Back MD, MD on 01/21/2017 12:46 .R/
--- NOTE | 2017-01-21 14:11 | PN ---
Date/Time of Note Date/Time of Note DATE: 01/21/17 TIME: 13:58 Assessment/Plan Lines/Catheters IV Catheter Type (from [facility]): PICC Line Rivas in Place (from [facility]): Yes Assessment/Plan Assessment/Plan [facility] Progress Note Date of Service: 01/21/17 Today's Impression & Plan: Overall has remained stable. Gallbladder: No new issues. Controlled with perc myron drain. 1. Plan is for laparoscopic cholecystectomy once the patient is medically stabilized (would likely take several weeks to months to accomplish). No further interventions needed at this time. 2, Will need drain care and education for patient and family as well as snf staff. Very important to flush the drain with 10 cc of normal saline once a day and record daily outputs. Feeding: Abdomen appears to be improving on the left side with mild to no discomfort. No indication for surgical intervention for this at the moment. May not be able to do a formal swallow test due to lethargy. Placed a call to Dr. Helm and await discussions with him regarding possible endoscopic re- insertion of new PEG tube (also d/w Dr. Back from IR). Nutrition is quickly becoming a high priority issue in the patient's care. 1. Multidisciplinary discussion between surgery, interventional radiology, and gastroenterology with recommendation for re-insertion of PEG feeding tube Bowel activity: Patient has not had a recorded BM in the chart. Despite lack of oral intake, there should still be some stool formation. Will likely benefit from assistance from below 1. Bowel regimen scheduled until effect, then prn Overall, patient is doing reasonably well given the clinical picture and the extent of her problems. Urinary tract infection is being treated for E. coli. Her mood appears to be depressed and is thought to be appropriate given clinical picture and situational. Would benefit from occasional review from a medication standpoint. Despite her weight, the patient is likely malnourished and very important that the question of feeding gets answered as soon as possible. She is also extremely debilitated from a physical standpoint and very important for physical therapy to continue aggressively addressing this. With above assessment, I've recommended the following for today: 1. Keep in-house 2. Physical therapy involvement 3. Awaiting discussions with Dr. Helm for re-insertion of PEG tube 4. Check lab and correct electrolytes as needed 5. Targeted antimicrobial therapy based on culture results 6. Monitor for signs of sepsis since she is at high risk (elevated and rising white blood cell count) Thank you again for allowing us to participate in the care of this very pleasant lady and her wonderful family. If there are any questions, please feel free to contact me at [phone]. Please note that, given the extensive number of diagnoses or management options , the moderate to extensive amount and/or complexity of data needed to be reviewed, and I risk of complications and/or morbidity or mortality, this qualifies as high complexity type of decision-making. Disclaimer: Inadvertent spelling and grammatical errors are likely due to EHR/ dictation software use and do not reflect on the quality of delivered patient care. Also, please note that the electronic time recorded on this node does not necessarily reflect the actual time of the visit. Updated Clinical Summary: A very pleasant 71-year-old lady with multiple comorbid issues including BMI of 35.6 as well as what has been in the hospital since 09/2016 being found unresponsive and multiple issues including congestive heart failure, acute renal failure due to acute tubular necrosis requiring dialysis, urinary tract infection with bacteremia and multiple other issues, who was found to have possible signs of acute cholecystitis on recent imaging. D/c to [facility] ([place] ) 12/25/16. Readmitted to [facility] for abdominal wall pain on the left side on 01/16/2017. Urinary tract infection treated for E. coli. Thoracentesis with removal of approximately 1 L of fluid from her chest 2016. Percutaneous gallbladder drain exchange 01/18/2017. COMORBIDITIES: 1. BMI of 35.6. 2. Acute renal failure (ATN), on maintenance hemodialysis (Friday, , Friday). 3. Congestive heart failure. 4. Anemia. 5. Hypocalcemia. 6. Hypoalbuminemia and malnutrition. 7. Peripheral vascular disease with gangrene of toes of both feet. 8. Recent history of respiratory failure. 9. History of dysphagia requiring PEG placement and feedings. 10. Diabetes mellitus. 11. Leukocytosis from various sources. 12. Funguria with Erica glabrata and Erica albicans of the urine. 13. Escherichia coli and Enterococcus urinary tract infection 10/29/2016. 14. Escherichia coli bacteremia 12/02/2016 (x2 cultures). 15. Repeat culture of the urine 12/02/2016 with E. coli, enterococcus species and Klebsiella pneumoniae, extended-spectrum beta-lactamase. 16. Repeat bacteremia 12/08/2016 with Escherichia coli. 17. Urine positive for Erica albicans 12/11/2016. 18. Clostridium difficile colitis negative on a few stool samples. 19. Bilateral pleural effusions. 20. 2 mm calcified granuloma in the right lower lobe. 21. CT scan of abdomen and pelvis 12/13/2016 showing large amount of pericholecystic fluid with distention of the gallbladder, which could be of acute cholecystitis. 22. Tumefaction sludge, poorly visualized gallstones or soft tissue masses are suspected within the lumen of the distended gallbladder. 23. Anasarca. 24. Status post splenectomy. 25. A 2.8 cm left parapelvic cyst and an adjacent 1.4 cm simple cyst lateral upper portion of the lower third left kidney noted. 26. Atherosclerotic vascular disease. 27. Osteoarthritis of the thoracic and lumbosacral spine. 28. History of acute ST elevation myocardial infarction, inferior wall, status post code STEMI with stent placement, as well as temporary pacer wire. 29. Hyperlipidemia. 30. Possible aspiration pneumonia. 31. S/p CT-guided percutaneous transhepatic cholecystostomy drain placement 06/22, [facility] Subjective: No major events or complaints; no major abd pain; no reported major n/v/d; no sob or cp; + flatus; - BM; minimal activity. Doing slight amount of PT in bed. No new issues. Not able to stand on her own power. Objective: Vitals: See below Exam: GENERAL: On exam, the patient was laying in bed and appeared to be comfortable and in no acute distress. ABDOMEN: Soft, nontender and nondistended. There are no peritoneal signs or guarding. Perc GB drain with bilious output in the tubing. Minimal fluid in the accordion bag. PEG tube site clean. SKIN: Skin appears to be pink and feels warm to touch. NEUROLOGIC: Patient is awake, alert, and follows commands appropriately. Exam/Review of Systems Vital Signs Vitals Vital Signs Date Time Temp Pulse Resp B/P Pulse Ox O2 Delivery O2 Flow Rate FiO2 01/21/17 12:03 93 01/21/17 11:33 98.3 18 116/67 97 01/21/17 08:45 2.0 01/21/17 08:45 Nasal Cannula 01/19/17 03:48 32 Intake and Output 01/20/17 01/20/17 01/21/17 15:00 23:00 07:00 Intake Total 500 ml Output Total 4000 ml 555 ml 350 ml Balance -3500 ml -555 ml -350 ml Results Result Diagram: 01/21/17 0628 01/21/17 0628 SHANA ROSARIO M.D. Jan 21, 2017 14:10
--- NOTE | 2017-01-21 15:42 | CONS ---
Date/Time of Note Date/Time of Note DATE: 01/21/17 TIME: 15:37 Assessment/Plan Assessment/Plan Chief Complaint/Hosp Course Impression: 1. Renal failure. This patient is being seen by me today for a history of renal failure. She had dry ultrafiltration yesterday. She does have peripheral edema , mostly in her flanks . 2. Multiple medical problems including insulin-dependent diabetes mellitus, atherosclerotic heart disease with acute NC and status post cardiac arrest with acute renal failure and anoxic encephalopathy, congestive heart failure, anemia of chronic disease, malnutrition, dysphagia requiring PEG placement , urinary tract infection , acute cholecystitis with drainage tube in place, peripheral vascular disease, history of her respiratory failure, history of acute cholecystitis with gallbladder drainage tube in place . She was admitted now because her gastric feeding tube dislodged and some of her feeding went into her abdominal cavity. She was admitted and thought to be septic at the time of admission. Plan: 1. Dialysis with dry ultrafiltration ordered for today 2. Continue Epogen 3. Monitor daily labs and renal function. 4. Agree with broad-spectrum antibiotics 5. I did speak to her regarding her current condition and advanced directives. I asked him to think about whether he would want her reintubated should that be needed at some time. She had originally voiced the opinion that she did not want to be intubated. However this may have changed. She has had a rather stormy medical course over the last 4 months. I told the that we would continue everything else that we are doing including dialysis Problems: Consultation Date/Type/Reason Admit Date/Time Jan 16, 2017 at 22:45 Initial Consult Date 01/18/17 Type of Consultation: Pulmonary Referring Provider: SHAMA LOPEZ MD 24 HR Interval Summary Free Text/Dictation She is lethargic . She does respond some to verbal stimuli . Still very weak . Exam/Review of Systems Vital Signs Vitals Vital Signs Date Time Temp Pulse Resp B/P Pulse Ox O2 Delivery O2 Flow Rate FiO2 01/21/17 15:07 98.1 77 16 108/55 97 01/21/17 14:56 Nasal Cannula 2.0 01/19/17 03:48 32 Intake and Output 01/20/17 01/20/17 01/21/17 15:00 23:00 07:00 Intake Total 500 ml Output Total 4000 ml 555 ml 350 ml Balance -3500 ml -555 ml -350 ml Exam she has bilateral gangrenous toes . Constitutional: alert, frail, obese Neck: supple Respiratory: clear to auscultation, diminished breath sounds Cardiovascular: edema, regular rate and rhythm Gastrointestinal: distended, soft, tender Musculoskeletal: muscle weakness, other Results Result Diagram: 01/21/17 0628 01/21/1728 Results 24 hrs Laboratory Tests Test 01/20/17 17:19 01/20/17 22:49 01/21/17 02:43 01/21/17 05:58 Bedside Glucose 143 167 152 158 Test 01/21/17 06:28 01/21/17 07:52 01/21/17 11:00 01/21/17 13:01 White Blood Count 15.9 #H Red Blood Count 3.06 L Hemoglobin 8.2 L Hematocrit 29.0 L Mean Corpuscular Volume 94.8 Mean Corpuscular Hemoglobin 26.8 L Mean Corpuscular Hemoglobin Concent 28.3 L Red Cell Distribution Width 19.8 H Platelet Count 285 Mean Platelet Volume 9.5 Neutrophils % 76.6 Lymphocytes % 12.2 L Monocytes % 5.3 Eosinophils % 0.5 Basophils % 0.2 Nucleated Red Blood Cells % 0.3 H Neutrophils # 12.2 H Lymphocytes # 1.9 Monocytes # 0.9 Eosinophils # 0.1 Basophils # 0.0 Nucleated Red Blood Cells # 0.1 H Sodium Level 141 Potassium Level 4.0 Chloride Level 104 Carbon Dioxide Level 24 Anion Gap 17 H Blood Urea Nitrogen 36 H Creatinine 1.44 H Glucose Level 148 Calcium Level 7.8 L Total Bilirubin 0.0 L Direct Bilirubin 0.00 Indirect Bilirubin 0.0 Aspartate Amino Transf (AST/SGOT) 22 Alanine Aminotransferase (ALT/SGPT) 26 Alkaline Phosphatase 298 H Total Protein 5.1 L Albumin 2.0 L Globulin 3.10 Albumin/Globulin Ratio 0.64 Bedside Glucose 171 178 177 Medications Medications Current Medications Metoprolol Tartrate (Lopressor) 2.5 mg BID IV Last administered on 01/21/17t 07 :54; Admin Dose 2.5 MG; Start 01/17/17 at 09:00 Miscellaneous Information 1 ea NOTE XX ; Start 01/16/17 at 23:30 Glucose (Glutose) 15 gm Q15M PRN PO DECREASED GLUCOSE; Start 01/16/17 at 23:30 Glucose (Glutose) 22.5 gm Q15M PRN PO DECREASED GLUCOSE; Start 01/16/17 at 23: 30 Dextrose (D50w Syringe) 25 ml Q15M PRN IV DECREASED GLUCOSE Last administered on 01/20/17 09:08; Admin Dose 25 ML; Start 01/16/17 at 23:30 Dextrose (D50w Syringe) 50 ml Q15M PRN IV DECREASED GLUCOSE; Start 01/16/17 at 23:30 Glucagon (Glucagen) 1 mg Q15M PRN IM DECREASED GLUCOSE; Start 01/16/17 at 23:30 Glucose (Glutose) 15 gm Q15M PRN BUCCAL DECREASED GLUCOSE; Start 01/16/17 at 23 :30 Diagnostic Test (Pha) (Accu-Chek) 1 ea 02 XX Last administered on 01/21/17 02: 51; Admin Dose 1 EA; Start 01/18/17 at 02:00 Latanoprost (Xalatan) 1 drop HS BOTH EYES Last administered on 01/20/17 22:46 ; Admin Dose 1 DROP; Start 01/17/17 at 21:00 Insulin Aspart (Novolog Insulin Pen) NOVOLOG *MILD* ALGORI... Q4 SC Last administered on 01/21/17 13:18; Admin Dose 1 UNIT; Start 01/17/17 at 21:00 Epoetin Raj (Epogen (Esrd)) 10,000 units TuThSa@17 SC Last administered on 17:03; Admin Dose 10,000 UNITS; Start 01/18/17 at 17:00 Ondansetron HCl (Zofran Inj) 4 mg Q6H PRN IV NAUSEA AND/OR VOMITING; Start at 00:30 Collagenase (Santyl) 1 applic DAILY TOP Last administered on 01/21/17 07:57; Admin Dose 1 APPLIC; Start 01/18/17 at 16:00 Collagenase 1 applic 1 applic PRN PRN TOP WOUND CARE; Start 01/18/17 at 15:00 Meropenem/Sodium Chloride (Merrem 500mg/50 ml(Pmx)) 50 ml @ 100 mls/hr DAILY@ 20 IVPB Last administered on 01/20/17 22:45; Admin Dose 100 MLS/HR; Start at 20:00 Enoxaparin Sodium (Lovenox) 30 mg DAILY SC Last administered on 01/21/17 08:04 ; Admin Dose 30 MG; Start 01/20/17 at 09:00 Insulin Glargine 20 unit 20 unit DAILY@08 SC Last administered on 01/21/17 11: 04; Admin Dose 20 UNIT; Start 01/21/17 at 08:00 Dextrose/Sodium Chloride (D5-1/2ns) 1,000 ml @ 60 mls/hr [id number] IV Last administered on 01/21/17 02:51; Admin Dose 60 MLS/HR; Start 01/20/17 at 09:30 Bisacodyl (Dulcolax Supp) 10 mg BID PRN [place] CONSTIPATION; Start 01/20/17 at 17: 00 Sodium Biphosphate/ Sodium Phosphate (Fleet Enema) 133 ml BID PRN [place] CONSTIPATION; Start 01/20/17 at 17:00 Miscellaneous Information (*Rx Drug Level Order Reminder*) VANCO RANDOM LEVEL... ONCE ONCE XX ; Start 01/22/17 at 05:00; Stop 01/22/17 at 05:01 DAMIR MARTINEZ MD Jan 21, 2017 15:42
[2017-01-21] MEDS: EPOETIN 10000 UNITS/1 ML INJ (ESRD) SC SCH (18:14)
[2017-01-21] MEDS: MEROPENEM 500MG/50 ML (PMX) 50 ML IVPB SCH (21:15)
[2017-01-21] MEDS: NEOMYC/POLYMYX/BACIT 30 GM OINT TOP SCH (21:16)
[2017-01-21] MEDS: LATANOPROST 0.005% 2.5 ML OPH BOTH EYES SCH (21:17)
[2017-01-22] VITALS (20 sets, daily range): BP systolic 91–110; BP diastolic 49–55; PULSE 90–101; RESP 17–20
[2017-01-22] MEDS: INSULIN ASPART [NOVOLOG] 3 ML PEN SC SCH ×6 (01:00→20:45)
[2017-01-22] MEDS: ACCUCHECK AT 2AM (Patients on SS coverage) XX SCH (01:14)
[2017-01-22] MEDS: LEVALBUTEROL (NEB) 0.31 MG/3 ML AMP HHN SCH ×4 (01:23→20:12)
[2017-01-22 06:22] LABS: ADD SCAN DIFF NO
[2017-01-22 06:27] LABS: ABNORMAL IP MESSAGE 1; BASOPHILS % 0.3 % (0.0-2.0); EOSINOPHILS # 0.1 10^3/ul (0.0-0.5); EOSINOPHILS % 1.1 % (0.0-7.0); HEMATOCRIT 26.2 % (37.0-47.0); HEMOGLOBIN 7.6 g/dl (12.0-16.0); LYMPHOCYTES # 2.1 10^3/ul (0.8-2.9); LYMPHOCYTES % 18.1 % (15.0-51.0); MEAN CORPUSCULAR HEMOGLOBIN 27.3 pg (29.0-33.0); MEAN CORPUSCULAR VOLUME 94.2 fl (82.0-101.0); MEAN PLATELET VOLUME 9.4 fl (7.4-10.4); MONOCYTE # 0.9 10^3/ul (0.3-0.9); MONOCYTES % 7.7 % (0.0-11.0); NEUTROPHIL # 7.7 10^3/ul (1.6-7.5); NEUTROPHILS % 66.5 % (39.0-77.0); NUCLEATED RED BLOOD CELLS # 0.1 10^3/ul (0.0-0.0); NUCLEATED RED BLOOD CELLS% 0.4 /100WBC (0.0-0.0); PLATELET COUNT 253 10^3/UL (140-415); RED BLOOD COUNT 2.78 10^6/ul (4.20-5.40); RED CELL DISTRIBUTION WIDTH 19.5 % (11.5-14.5); WHITE BLOOD COUNT 11.6 10^3/ul (4.8-10.8)
[2017-01-22 07:17] LABS: CALCIUM 7.8 mg/dl (8.4-10.2); CREATININE 1.41 mg/dl (0.44-1.00); POTASSIUM 3.7 mmol/L (3.5-5.1)
[2017-01-22] MEDS: DEXTROSE 5%-0.45% NACL 1,000 ML IV SCH ×2 (08:25→11:30)
[2017-01-22] MEDS: ENOXAPARIN 30 MG/0.3 ML SYG SC SCH (08:28)
[2017-01-22] MEDS: METOPROLOL 5 MG INJ IV SCH ×2 (08:29→20:41)
[2017-01-22] MEDS: NEOMYC/POLYMYX/BACIT 30 GM OINT TOP SCH ×3 (08:31→20:42)
[2017-01-22] MEDS: COLLAGENASE 30 GM TUBE TOP SCH (08:31)
--- NOTE | 2017-01-22 08:36 | CONS ---
Date/Time of Note Date/Time of Note DATE: 01/22/17 TIME: 08:29 Assessment/Plan Assessment/Plan Chief Complaint/Hosp Course 1) SubQ emphysema due to dislodged g-tube culture the wound site and continue with vanco/zosyn 01/18 - g-tube wound cx is NGTD 01/19 - g-tube wound cx has scant CoNS, doubt this is significant 01/20 - await decision regarding g-tube re-insertion 01/21 - pt is too lethargic for swallow eval to be done, re-attempt today 01/22 - pt to get new g-tube placed today 2) choleycystitis pt has had a drain in place for this until she is ready for surgery will cx the fluid that is present 01/18 - AMBROSE drain cx has growth but too young continue with vanco/zosyn CT showed distending GB and gallstones but no fluid around the GB 01/19 - AMBROSE drain is growing regular klebsiella and MRSA due to kleb +ESBL in urine will change zosyn to merrem, to continue with vanco contact isolation ordered 01/20 - continue with vanco/merrem at present 01/22 - WBC almost back to normal day 01/13 of vanco and day 10/11 of merrem likely will change to po augmentin/bactrim in 3 days if WBC is ok 3) recent STEMI and hx of CABG 4) renal failure pt has very good creatinine but is still receiving dialysis she also has distended bladder by CT will get u/a and urine cx, nurse to straight cath vanco/zosyn should cover 5) sacral ulcer unable to see nurse to get picture 01/18 - no sign for infection according to notes 6) UTI 01/18 - pus is coming out from guevara urine cx is growing GNR continue with zosyn as WBC is decreasing 01/19 - urine cx has kleb +ESBL change zosyn to merrem merrem to be given after HD on dialysis days 01/20 - no change 01/21 - pt's urine output is picking up 01/22 - day 4/7 of merrem 7) R pleural effusion with possible consolidation 01/18 - no phlegm production on vanco/zosyn at present will order nasal for MRSA pt to possibly get R thorancentesis 01/19 - pleural fluid does not appear to be infected with low WBC count and less than 50% PMN's will check LDH in serum to verify if exudative or transudative 01/20 - LDH results consistent with exudative process, cx remain NGTD 01/21 - pleural fluid cx remains NGTD 01/22 - pleural cx was neg 8) 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 01/20 - no sign of cellulitis around these toes 01/22 - stable Problems: Consultation Date/Type/Reason Admit Date/Time Jan 16, 2017 at 22:45 Initial Consult Date 01/17/17 Type of Consultation: ID Referring Provider: SHAMA LOPEZ MD 24 HR Interval Summary Free Text/Dictation pt arousable, minimal talking to get g-tube replaced later today no V, D Exam/Review of Systems Vital Signs Vitals Vital Signs Date Time Temp Pulse Resp B/P Pulse Ox O2 Delivery O2 Flow Rate FiO2 01/22/17 08:22 93 01/22/17 07:17 97.9 19 105/52 93 01/22/17 01:24 2.0 01/22/17 01:24 Nasal Cannula 01/19/17 03:48 32 Intake and Output 01/21/17 01/21/17 01/22/17 15:00 23:00 07:00 Intake Total 1320 ml 480 ml Output Total 505 ml Balance 815 ml 480 ml Exam Constitutional: alert Respiratory: clear to auscultation Cardiovascular: regular rate and rhythm Gastrointestinal: soft, tender (tender to around prior g-tube site) Extremities: other (still with dry gangrene to R 1st toe and tip of 2nd toe and L 2nd toe) Results Result Diagram: 01/22/17 0556 01/22/17 0556 Results 24 hrs Laboratory Tests Test 01/21/17 11:00 01/21/17 13:01 01/21/17 17:18 01/21/17 21:19 Bedside Glucose 178 177 133 142 Test 01/22/17 01:05 01/22/17 05:28 01/22/17 05:56 01/22/17 08:13 Bedside Glucose 129 113 121 White Blood Count 11.6 #H Red Blood Count 2.78 L Hemoglobin 7.6 L Hematocrit 26.2 L Mean Corpuscular Volume 94.2 Mean Corpuscular Hemoglobin 27.3 L Mean Corpuscular Hemoglobin Concent 29.0 L Red Cell Distribution Width 19.5 H Platelet Count 253 Mean Platelet Volume 9.4 Neutrophils % 66.5 Lymphocytes % 18.1 Monocytes % 7.7 Eosinophils % 1.1 Basophils % 0.3 Nucleated Red Blood Cells % 0.4 H Neutrophils # 7.7 H Lymphocytes # 2.1 Monocytes # 0.9 Eosinophils # 0.1 Basophils # 0.0 Nucleated Red Blood Cells # 0.1 H Sodium Level 141 Potassium Level 3.7 Chloride Level 105 Carbon Dioxide Level 25 Anion Gap 15 Blood Urea Nitrogen 39 H Creatinine 1.41 H Glucose Level 114 Calcium Level 7.8 L Random Vancomycin Level 17.5 Medications Medications Current Medications Metoprolol Tartrate (Lopressor) 2.5 mg BID IV Last administered on 01/21/17 21 :16; Admin Dose 2.5 MG; Start 01/17/17 at 09:00 Miscellaneous Information 1 ea NOTE XX ; Start 01/16/17 at 23:30 Glucose (Glutose) 15 gm Q15M PRN PO DECREASED GLUCOSE; Start 01/16/17 at 23:30 Glucose (Glutose) 22.5 gm Q15M PRN PO DECREASED GLUCOSE; Start 01/16/17 at 23: 30 Dextrose (D50w Syringe) 25 ml Q15M PRN IV DECREASED GLUCOSE Last administered on 01/20/17 09:08; Admin Dose 25 ML; Start 01/16/17 at 23:30 Dextrose (D50w Syringe) 50 ml Q15M PRN IV DECREASED GLUCOSE; Start 01/16/17 at 23:30 Glucagon (Glucagen) 1 mg Q15M PRN IM DECREASED GLUCOSE; Start 01/16/17 at 23:30 Glucose (Glutose) 15 gm Q15M PRN BUCCAL DECREASED GLUCOSE; Start 01/16/17 at 23 :30 Diagnostic Test (Pha) (Accu-Chek) 1 ea 02 XX Last administered on 01/21/17 02: 51; Admin Dose 1 EA; Start 01/18/17 at 02:00 Latanoprost (Xalatan) 1 drop HS BOTH EYES Last administered on 01/21/17 21:17 ; Admin Dose 1 DROP; Start 01/17/17 at 21:00 Insulin Aspart (Novolog Insulin Pen) NOVOLOG *MILD* ALGORI... Q4 SC Last administered on 01/21/17 21:32; Admin Dose 1 UNIT; Start 01/17/17 at 21:00 Epoetin Raj (Epogen (Esrd)) 10,000 units TuThSa@17 SC Last administered on 18:14; Admin Dose 10,000 UNITS; Start 01/18/17 at 17:00 Ondansetron HCl (Zofran Inj) 4 mg Q6H PRN IV NAUSEA AND/OR VOMITING; Start at 00:30 Collagenase (Santyl) 1 applic DAILY TOP Last administered on 01/21/17 07:57; Admin Dose 1 APPLIC; Start 01/18/17 at 16:00 Collagenase 1 applic 1 applic PRN PRN TOP WOUND CARE; Start 01/18/17 at 15:00 Meropenem/Sodium Chloride (Merrem 500mg/50 ml(Pmx)) 50 ml @ 100 mls/hr DAILY@ 20 IVPB Last administered on 01/21/17 21:15; Admin Dose 100 MLS/HR; Start at 20:00 Enoxaparin Sodium (Lovenox) 30 mg DAILY SC Last administered on 01/21/17 08:04 ; Admin Dose 30 MG; Start 01/20/17 at 09:00 Insulin Glargine 20 unit 20 unit DAILY@08 SC Last administered on 01/21/17 11: 04; Admin Dose 20 UNIT; Start 01/21/17 at 08:00 Dextrose/Sodium Chloride (D5-1/2ns) 1,000 ml @ 60 mls/hr [id number] IV Last administered on 01/21/17 18:50; Admin Dose 60 MLS/HR; Start 01/20/17 at 09:30 Bisacodyl (Dulcolax Supp) 10 mg BID PRN [place] CONSTIPATION; Start 01/20/17 at 17: 00 Sodium Biphosphate/ Sodium Phosphate (Fleet Enema) 133 ml BID PRN [place] CONSTIPATION; Start 01/20/17 at 17:00 Neomycin/ Polymyxin/ Bacitracin (Neosporin Topical Oint) 1 applic TID TOP Last administered on 01/21/17 21:16; Admin Dose 1 APPLIC; Start 01/21/17 at 21:00 TR GOODEN MD Jan 22, 2017 08:35
[2017-01-22] MEDS: IPRATROPIUM (NEB) 0.5 MG/2.5 ML AMP HHN SCH ×3 (08:42→20:12)
[2017-01-22] MEDS: INSULIN GLARGINE [LANtus] 3 ML PEN SC SCH (08:43)
[2017-01-22] MEDS ORDERED: ALBUMIN HUMAN 25% 100 ML IV ONE (11:00)
[2017-01-22] MEDS ORDERED: HEPARIN 1000 UNITS/ML 10 ML INJ CATHETER ONE (11:00)
[2017-01-22 13:25] LABS: ADD SCAN DIFF NO
[2017-01-22 13:27] LABS: ABNORMAL IP MESSAGE 1; HEMATOCRIT 29.7 % (37.0-47.0); HEMOGLOBIN 8.9 g/dl (12.0-16.0); MEAN CORPUSCULAR VOLUME 93.4 fl (82.0-101.0); MEAN PLATELET VOLUME 9.1 fl (7.4-10.4); PLATELET COUNT 227 10^3/UL (140-415); RED BLOOD COUNT 3.18 10^6/ul (4.20-5.40); RED CELL DISTRIBUTION WIDTH 19.5 % (11.5-14.5); WHITE BLOOD COUNT 12.3 10^3/ul (4.8-10.8)
--- NOTE | 2017-01-22 13:55 | CONS ---
Date/Time of Note Date/Time of Note DATE: 01/22/17 TIME: 13:47 Assessment/Plan Assessment/Plan Chief Complaint/Hosp Course Impression: 1. Renal failure. She had hemodialysis treatment this morning. 2.5 L of fluid were removed during the dialysis. Her blood pressure was low and she required albumin during the dialysis treatment. She continues to have flank edema. She remains quite weak. 2. Multiple medical problems including insulin-dependent diabetes mellitus, atherosclerotic heart disease with acute MS and status post cardiac arrest with acute renal failure and anoxic encephalopathy, congestive heart failure, anemia of chronic disease, malnutrition, dysphagia requiring PEG placement , urinary tract infection , acute cholecystitis with drainage tube in place, peripheral vascular disease, history of her respiratory failure, history of acute cholecystitis with gallbladder drainage tube in place . She was admitted now because her gastric feeding tube dislodged and some of her feeding went into her abdominal cavity. She was admitted and thought to be septic at the time of admission. Plan: 1. Hemodialysis was done this morning. 2.5 L of fluid was removed. Next dialysis in 2 days. 2. Continue Epogen 3. Patient to have percutaneous endoscopic gastric tube placed today. 4. Agree with broad-spectrum antibiotics 5. I did speak to her yesterday regarding her current condition and advanced directives. I asked him to think about whether he would want her reintubated should that be needed . She had originally voiced the opinion that she did not want to be intubated. However this may have changed. She has had a rather stormy medical course over the last 4 months. I told the that we would continue everything else that we are doing including dialysis . Problems: Consultation Date/Type/Reason Admit Date/Time Jan 16, 2017 at 22:45 Initial Consult Date 01/18/17 Type of Consultation: ID Referring Provider: SHAMA LOPEZ MD 24 HR Interval Summary Free Text/Dictation She is in bed. She is awake and her is in the room with her. She does respond to verbal stimuli. She continues to be weak. She had hemodialysis earlier this morning. 2.5 L of fluid were removed. She continues to have some left upper quadrant abdominal pain. Exam/Review of Systems Vital Signs Vitals Vital Signs Date Time Temp Pulse Resp B/P Pulse Ox O2 Delivery O2 Flow Rate FiO2 01/22/17 12:17 101 01/22/17 11:38 98.0 19 103/55 100 01/22/17 11:18 Nasal Cannula 2.0 01/19/17 03:48 32 Intake and Output 01/21/17 01/21/17 01/22/17 15:00 23:00 07:00 Intake Total 1320 ml 480 ml Output Total 505 ml Balance 815 ml 480 ml Exam She does have gangrenous toes on both feet. Constitutional: alert, frail, obese Respiratory: clear to auscultation, diminished breath sounds Cardiovascular: edema, regular rate and rhythm Gastrointestinal: soft, tender Extremities: edema Results Result Diagram: 01/22/17 1310 01/22/17 0556 Results 24 hrs Laboratory Tests Test 01/21/17 17:18 01/21/17 21:19 01/22/17 01:05 01/22/17 05:28 Bedside Glucose 133 142 129 113 Test 01/22/17 05:56 01/22/17 08:13 01/22/17 13:02 01/22/17 13:10 White Blood Count 11.6 #H 12.3 H Red Blood Count 2.78 L 3.18 L Hemoglobin 7.6 L 8.9 L Hematocrit 26.2 L 29.7 L Mean Corpuscular Volume 94.2 93.4 Mean Corpuscular Hemoglobin 27.3 L 28.0 L Mean Corpuscular Hemoglobin Concent 29.0 L 30.0 L Red Cell Distribution Width 19.5 H 19.5 H Platelet Count 253 227 Mean Platelet Volume 9.4 9.1 Neutrophils % 66.5 65.0 Lymphocytes % 18.1 19.0 Monocytes % 7.7 8.1 Eosinophils % 1.1 1.0 Basophils % 0.3 0.4 Nucleated Red Blood Cells % 0.4 H 0.8 H Neutrophils # 7.7 H 8.0 H Lymphocytes # 2.1 2.3 Monocytes # 0.9 1.0 H Eosinophils # 0.1 0.1 Basophils # 0.0 0.1 Nucleated Red Blood Cells # 0.1 H 0.1 H Differential Comment AUTO w/SCAN Sodium Level 141 Potassium Level 3.7 Chloride Level 105 Carbon Dioxide Level 25 Anion Gap 15 Blood Urea Nitrogen 39 H Creatinine 1.41 H Glucose Level 114 Calcium Level 7.8 L Random Vancomycin Level 17.5 Bedside Glucose 121 122 Medications Medications Current Medications Metoprolol Tartrate (Lopressor) 2.5 mg BID IV Last administered on 01/21/17 21 :16; Admin Dose 2.5 MG; Start 01/17/17 at 09:00 Miscellaneous Information 1 ea NOTE XX ; Start 01/16/17 at 23:30 Glucose (Glutose) 15 gm Q15M PRN PO DECREASED GLUCOSE; Start 01/16/17 at 23:30 Glucose (Glutose) 22.5 gm Q15M PRN PO DECREASED GLUCOSE; Start 01/16/17 at 23: 30 Dextrose (D50w Syringe) 25 ml Q15M PRN IV DECREASED GLUCOSE Last administered on 01/20/17 09:08; Admin Dose 25 ML; Start 01/16/17 at 23:30 Dextrose (D50w Syringe) 50 ml Q15M PRN IV DECREASED GLUCOSE; Start 01/16/17 at 23:30 Glucagon (Glucagen) 1 mg Q15M PRN IM DECREASED GLUCOSE; Start 01/16/17 at 23:30 Glucose (Glutose) 15 gm Q15M PRN BUCCAL DECREASED GLUCOSE; Start 01/16/17 at 23 :30 Diagnostic Test (Pha) (Accu-Chek) 1 ea 02 XX Last administered on 01/21/17 02: 51; Admin Dose 1 EA; Start 01/18/17 at 02:00 Latanoprost (Xalatan) 1 drop HS BOTH EYES Last administered on 01/21/17 21:17 ; Admin Dose 1 DROP; Start 01/17/17 at 21:00 Insulin Aspart (Novolog Insulin Pen) NOVOLOG *MILD* ALGORI... Q4 SC Last administered on 01/21/17 21:32; Admin Dose 1 UNIT; Start 01/17/17 at 21:00 Epoetin Raj (Epogen (Esrd)) 10,000 units TuThSa@17 SC Last administered on 18:14; Admin Dose 10,000 UNITS; Start 01/18/17 at 17:00 Ondansetron HCl (Zofran Inj) 4 mg Q6H PRN IV NAUSEA AND/OR VOMITING; Start at 00:30 Collagenase (Santyl) 1 applic DAILY TOP Last administered on 01/22/17 08:31; Admin Dose 1 APPLIC; Start 01/18/17 at 16:00 Collagenase 1 applic 1 applic PRN PRN TOP WOUND CARE; Start 01/18/17 at 15:00 Meropenem/Sodium Chloride (Merrem 500mg/50 ml(Pmx)) 50 ml @ 100 mls/hr DAILY@ 20 IVPB Last administered on 01/21/17 21:15; Admin Dose 100 MLS/HR; Start at 20:00 Enoxaparin Sodium (Lovenox) 30 mg DAILY SC Last administered on 01/21/17 08:04 ; Admin Dose 30 MG; Start 01/20/17 at 09:00 Insulin Glargine 20 unit 20 unit DAILY@08 SC Last administered on 01/22/17 08: 43; Admin Dose 20 UNIT; Start 01/21/17 at 08:00 Dextrose/Sodium Chloride (D5-1/2ns) 1,000 ml @ 60 mls/hr [id number] IV Last administered on 01/22/17 08:25; Admin Dose 60 MLS/HR; Start 01/20/17 at 09:30 Bisacodyl (Dulcolax Supp) 10 mg BID PRN [place] CONSTIPATION; Start 01/20/17 at 17: 00 Sodium Biphosphate/ Sodium Phosphate (Fleet Enema) 133 ml BID PRN [place] CONSTIPATION; Start 01/20/17 at 17:00 Neomycin/ Polymyxin/ Bacitracin 1 applic 1 applic TID TOP Last administered on 01/22/17 13:09; Admin Dose 1 APPLIC; Start 01/21/17 at 21:00 Vancomycin HCl (Vancocin) 250 ml @ 125 mls/hr Q96H IVPB ; Start 01/22/17 at 22: 00 DAMIR MARTINEZ MD Jan 22, 2017 13:54
[2017-01-22 14:02] LABS: LYMPHOCYTES # 2.8 10^3/ul (0.8-2.9); MONOCYTE # 0.2 10^3/ul (0.3-0.9); MYELOCYTES # 0.2; NEUTROPHIL # 8.2 10^3/ul (1.6-7.5)
--- NOTE | 2017-01-22 14:08 | PN ---
Date/Time of Note Date/Time of Note DATE: 01/22/17 TIME: 14:04 Assessment/Plan VTE Prophylaxis VTE Prophylaxis Intervention: LMWH Lines/Catheters IV Catheter Type (from Nrs): PICC Line Central line still needed: Yes Urinary Cath still in place: Yes Reason Cath still needed: other (indicate) Assessment/Plan Assessment/Plan Assessment/Plan 01/22 hgb redraw and is higher 8.9. dialysis done today, awaiting gtube reinsertion. 01/21 surg reports ok for gtube replace. gi reports will plan to place in am. cr increased 1.3 to 1.4. choking on apple sauce yesterday. 01/20 dialysis today, low sugar overall bad day today. 01/19gi- awaiting consult for replacement of g-tube. pt not appear to be able to take po nutrition appropriately. 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 dr lopez notified. -lawrence changed and growing klebsiella---id following and changing abx. -id following and pt on vanco/zosyn---now changed due to klebsiella to vanco/ merrem -gi eval and reports plan to replace g-tube in the am. surg reports wants g- tube placed for nutrition to be restarted. renal- pt producing some urine. renal following and questioning if functionality has improved. fluid overloaded, being diuresed. dialysis restarting. epogen given. cr 1.4. pulm has a right lung infiltrate and mod effusion. pulm following tapped for 1 liter removed. abx changed. dm- on sliding scale. no nutrition yet, sugar running low- lantis decreased. d5 running. cv- h/o arrest, stent CT, cards following. b-danyel restarted. cholecystostomy- surg following and drain changed and growing klebsiella. anemia- discussed with renal if transfusion is necessary. pt given epogen. renal to watch. low in FE. awaiting it g-tube to be reinserted or other source for feeding. hgb better 8.2. today cbc drawn from picc and the hgb 7.4. redraw from arm and 8.9. doing fine. need to give fe once gtube in place. poor iv access. picc placed. Subjective 24 Hr Interval Summary Free Text/Dictation more awake today. eyes open, pt not want to do swallow test today. Exam/Review of Systems Vital Signs Vitals Vital Signs Date Time Temp Pulse Resp B/P Pulse Ox O2 Delivery O2 Flow Rate FiO2 01/22/17 12:17 101 01/22/17 11:38 98.0 19 103/55 100 01/22/17 11:18 Nasal Cannula 2.0 01/19/17 03:48 32 Intake and Output 01/21/17 01/21/17 01/22/17 15:00 23:00 07:00 Intake Total 1320 ml 480 ml Output Total 505 ml Balance 815 ml 480 ml Results Result Diagram: 01/22/17 1310 01/22/17 0556 Results 24 hrs Laboratory Tests Test 01/21/17 17:18 01/21/17 21:19 01/22/17 01:05 01/22/17 05:28 Bedside Glucose 133 142 129 113 Test 01/22/17 05:56 01/22/17 08:13 01/22/17 13:02 01/22/17 13:10 White Blood Count 11.6 #H 12.3 H Red Blood Count 2.78 L 3.18 L Hemoglobin 7.6 L 8.9 L Hematocrit 26.2 L 29.7 L Mean Corpuscular Volume 94.2 93.4 Mean Corpuscular Hemoglobin 27.3 L 28.0 L Mean Corpuscular Hemoglobin Concent 29.0 L 30.0 L Red Cell Distribution Width 19.5 H 19.5 H Platelet Count 253 227 Mean Platelet Volume 9.4 9.1 Neutrophils % 66.5 67.0 Lymphocytes % 18.1 23.0 Monocytes % 7.7 2.0 Eosinophils % 1.1 Basophils % 0.3 Nucleated Red Blood Cells % 0.4 H Neutrophils # 7.7 H 8.2 H Lymphocytes # 2.1 2.8 Monocytes # 0.9 0.2 L Eosinophils # 0.1 Basophils # 0.0 Nucleated Red Blood Cells # 0.1 H Differential Comment AUTO w/SCAN MANUAL DIFF Sodium Level 141 Potassium Level 3.7 Chloride Level 105 Carbon Dioxide Level 25 Anion Gap 15 Blood Urea Nitrogen 39 H Creatinine 1.41 H Glucose Level 114 Calcium Level 7.8 L Random Vancomycin Level 17.5 Bedside Glucose 121 122 Band Neutrophils % 4.0 Metamyelocytes % 2.0 H Myelocytes % 2.0 H Metamyelocytes # 0.2 Myelocytes # 0.2 Medications Medications Current Medications Metoprolol Tartrate (Lopressor) 2.5 mg BID IV Last administered on 01/21/17 21 :16; Admin Dose 2.5 MG; Start 01/17/17 at 09:00 Miscellaneous Information 1 ea NOTE XX ; Start 01/16/17 at 23:30 Glucose (Glutose) 15 gm Q15M PRN PO DECREASED GLUCOSE; Start 01/16/17 at 23:30 Glucose (Glutose) 22.5 gm Q15M PRN PO DECREASED GLUCOSE; Start 01/16/17 at 23: 30 Dextrose (D50w Syringe) 25 ml Q15M PRN IV DECREASED GLUCOSE Last administered on 01/20/17 09:08; Admin Dose 25 ML; Start 01/16/17 at 23:30 Dextrose (D50w Syringe) 50 ml Q15M PRN IV DECREASED GLUCOSE; Start 01/16/17 at 23:30 Glucagon (Glucagen) 1 mg Q15M PRN IM DECREASED GLUCOSE; Start 01/16/17 at 23:30 Glucose (Glutose) 15 gm Q15M PRN BUCCAL DECREASED GLUCOSE; Start 01/16/17 at 23 :30 Diagnostic Test (Pha) (Accu-Chek) 1 ea 02 XX Last administered on 01/21/17 02: 51; Admin Dose 1 EA; Start 01/18/17 at 02:00 Latanoprost (Xalatan) 1 drop HS BOTH EYES Last administered on 01/21/17 21:17 ; Admin Dose 1 DROP; Start 01/17/17 at 21:00 Insulin Aspart (Novolog Insulin Pen) NOVOLOG *MILD* ALGORI... Q4 SC Last administered on 01/21/17 21:32; Admin Dose 1 UNIT; Start 01/17/17 at 21:00 Epoetin Raj (Epogen (Esrd)) 10,000 units TuThSa@17 SC Last administered on 18:14; Admin Dose 10,000 UNITS; Start 01/18/17 at 17:00 Ondansetron HCl (Zofran Inj) 4 mg Q6H PRN IV NAUSEA AND/OR VOMITING; Start at 00:30 Collagenase (Santyl) 1 applic DAILY TOP Last administered on 01/22/17 08:31; Admin Dose 1 APPLIC; Start 01/18/17 at 16:00 Collagenase 1 applic 1 applic PRN PRN TOP WOUND CARE; Start 01/18/17 at 15:00 Meropenem/Sodium Chloride (Merrem 500mg/50 ml(Pmx)) 50 ml @ 100 mls/hr DAILY@ 20 IVPB Last administered on 01/21/17 21:15; Admin Dose 100 MLS/HR; Start at 20:00 Enoxaparin Sodium (Lovenox) 30 mg DAILY SC Last administered on 01/21/17 08:04 ; Admin Dose 30 MG; Start 01/20/17 at 09:00 Insulin Glargine 20 unit 20 unit DAILY@08 SC Last administered on 01/22/17 08: 43; Admin Dose 20 UNIT; Start 01/21/17 at 08:00 Dextrose/Sodium Chloride (D5-1/2ns) 1,000 ml @ 60 mls/hr [id number] IV Last administered on 01/22/17 08:25; Admin Dose 60 MLS/HR; Start 01/20/17 at 09:30 Bisacodyl (Dulcolax Supp) 10 mg BID PRN [place] CONSTIPATION; Start 01/20/17 at 17: 00 Sodium Biphosphate/ Sodium Phosphate (Fleet Enema) 133 ml BID PRN [place] CONSTIPATION; Start 01/20/17 at 17:00 Neomycin/ Polymyxin/ Bacitracin 1 applic 1 applic TID TOP Last administered on 01/22/17 13:09; Admin Dose 1 APPLIC; Start 01/21/17 at 21:00 Vancomycin HCl (Vancocin) 250 ml @ 125 mls/hr Q96H IVPB ; Start 01/22/17 at 22: 00 SHAW SRINIVASAN MD Jan 22, 2017 14:07
--- NOTE | 2017-01-22 14:40 | CONS ---
Date/Time of Note Date/Time of Note DATE: 01/22/17 TIME: 14:38 Consult Date/Type/Reason Admit Date/Time Jan 16, 2017 at 22:45 Initial Consult Date 01/18/17 Type of Consultation: Pulmonary Ordering Provider: SHAMA LOPEZ MD Subjective No significant changes remains largely lethargic opens eyes but nonverbal Objective Vital Signs Date Time Temp Pulse Resp B/P Pulse Ox O2 Delivery O2 Flow Rate FiO2 01/22/17 12:17 101 01/22/17 11:38 98.0 19 103/55 100 01/22/17 11:18 Nasal Cannula 2.0 01/19/17 03:48 32 Intake and Output 01/21/17 01/21/17 01/22/17 15:00 23:00 07:00 Intake Total 1320 ml 480 ml Output Total 505 ml Balance 815 ml 480 ml Exam GENERAL: Chronically ill-appearing lady comfortable at rest no acute distress VITAL SIGNS: per chart NECK: Supple. No JVD or lymphadenopathy. CARDIAC EXAM: S1, S2. No added sounds or murmurs. CHEST: Diminished air entry both lung fairchild poor inspiratory effort ABDOMEN: Soft, nontender. No guarding or rebound. EXTREMITIES: No cyanosis, clubbing edema +2 NEUROLOGIC: Generalized weakness. Results/Medications Result Diagram: 01/22/17 1310 01/22/17 0556 Results 24 hrs Laboratory Tests Test 01/21/17 17:18 01/21/17 21:19 01/22/17 01:05 01/22/17 05:28 Bedside Glucose 133 142 129 113 Test 01/22/17 05:56 01/22/17 08:13 01/22/17 13:02 01/22/17 13:10 White Blood Count 11.6 #H 12.3 H Red Blood Count 2.78 L 3.18 L Hemoglobin 7.6 L 8.9 L Hematocrit 26.2 L 29.7 L Mean Corpuscular Volume 94.2 93.4 Mean Corpuscular Hemoglobin 27.3 L 28.0 L Mean Corpuscular Hemoglobin Concent 29.0 L 30.0 L Red Cell Distribution Width 19.5 H 19.5 H Platelet Count 253 227 Mean Platelet Volume 9.4 9.1 Neutrophils % 66.5 67.0 Lymphocytes % 18.1 23.0 Monocytes % 7.7 2.0 Eosinophils % 1.1 Basophils % 0.3 Nucleated Red Blood Cells % 0.4 H Neutrophils # 7.7 H 8.2 H Lymphocytes # 2.1 2.8 Monocytes # 0.9 0.2 L Eosinophils # 0.1 Basophils # 0.0 Nucleated Red Blood Cells # 0.1 H Differential Comment AUTO w/SCAN MANUAL DIFF Sodium Level 141 Potassium Level 3.7 Chloride Level 105 Carbon Dioxide Level 25 Anion Gap 15 Blood Urea Nitrogen 39 H Creatinine 1.41 H Glucose Level 114 Calcium Level 7.8 L Random Vancomycin Level 17.5 Bedside Glucose 121 122 Band Neutrophils % 4.0 Metamyelocytes % 2.0 H Myelocytes % 2.0 H Metamyelocytes # 0.2 Myelocytes # 0.2 Medications Current Medications Metoprolol Tartrate (Lopressor) 2.5 mg BID IV Last administered on 01/21/17 21 :16; Admin Dose 2.5 MG; Start 01/17/17 at 09:00 Miscellaneous Information 1 ea NOTE XX ; Start 01/16/17 at 23:30 Glucose (Glutose) 15 gm Q15M PRN PO DECREASED GLUCOSE; Start 01/16/17 at 23:30 Glucose (Glutose) 22.5 gm Q15M PRN PO DECREASED GLUCOSE; Start 01/16/17 at 23: 30 Dextrose (D50w Syringe) 25 ml Q15M PRN IV DECREASED GLUCOSE Last administered on 01/20/17 09:08; Admin Dose 25 ML; Start 01/16/17 at 23:30 Dextrose (D50w Syringe) 50 ml Q15M PRN IV DECREASED GLUCOSE; Start 01/16/17 at 23:30 Glucagon (Glucagen) 1 mg Q15M PRN IM DECREASED GLUCOSE; Start 01/16/17 at 23:30 Glucose (Glutose) 15 gm Q15M PRN BUCCAL DECREASED GLUCOSE; Start 01/16/17 at 23 :30 Diagnostic Test (Pha) (Accu-Chek) 1 ea 02 XX Last administered on 01/21/17 02: 51; Admin Dose 1 EA; Start 01/18/17 at 02:00 Latanoprost (Xalatan) 1 drop HS BOTH EYES Last administered on 01/21/17 21:17 ; Admin Dose 1 DROP; Start 01/17/17 at 21:00 Insulin Aspart (Novolog Insulin Pen) NOVOLOG *MILD* ALGORI... Q4 SC Last administered on 01/21/17 21:32; Admin Dose 1 UNIT; Start 01/17/17 at 21:00 Epoetin Raj (Epogen (Esrd)) 10,000 units TuThSa@17 SC Last administered on 18:14; Admin Dose 10,000 UNITS; Start 01/18/17 at 17:00 Ondansetron HCl (Zofran Inj) 4 mg Q6H PRN IV NAUSEA AND/OR VOMITING; Start at 00:30 Collagenase (Santyl) 1 applic DAILY TOP Last administered on 01/22/17 08:31; Admin Dose 1 APPLIC; Start 01/18/17 at 16:00 Collagenase 1 applic 1 applic PRN PRN TOP WOUND CARE; Start 01/18/17 at 15:00 Meropenem/Sodium Chloride (Merrem 500mg/50 ml(Pmx)) 50 ml @ 100 mls/hr DAILY@ 20 IVPB Last administered on 01/21/17 21:15; Admin Dose 100 MLS/HR; Start at 20:00 Enoxaparin Sodium (Lovenox) 30 mg DAILY SC Last administered on 01/21/17 08:04 ; Admin Dose 30 MG; Start 01/20/17 at 09:00 Insulin Glargine 20 unit 20 unit DAILY@08 SC Last administered on 01/22/17 08: 43; Admin Dose 20 UNIT; Start 01/21/17 at 08:00 Dextrose/Sodium Chloride (D5-1/2ns) 1,000 ml @ 60 mls/hr [id number] IV Last administered on 01/22/17 08:25; Admin Dose 60 MLS/HR; Start 01/20/17 at 09:30 Bisacodyl (Dulcolax Supp) 10 mg BID PRN [place] CONSTIPATION; Start 01/20/17 at 17: 00 Sodium Biphosphate/ Sodium Phosphate (Fleet Enema) 133 ml BID PRN [place] CONSTIPATION; Start 01/20/17 at 17:00 Neomycin/ Polymyxin/ Bacitracin 1 applic 1 applic TID TOP Last administered on 01/22/17 13:09; Admin Dose 1 APPLIC; Start 01/21/17 at 21:00 Vancomycin HCl (Vancocin) 250 ml @ 125 mls/hr Q96H IVPB ; Start 01/22/17 at 22: 00 Assessment/Plan Chief Complaint/Hosp Course Switch assessment 1. Severe sepsis likely polymicrobial 2. Status post thoracentesis 800 cc pleural fluid suggestive of transudative process given low protein however elevated LDH noted. No malignant cells noted 3. End-stage renal failure on hemodialysis 4. History ST elevation NC 5. Recent recurrent hypoxemic respiratory failure 6. Dysphagia G-tube has been dislodged. Patient has significant aspiration risk Plan 1. Broad-spectrum antibiotics per infectious diseases 2. Supplemental O2 as needed 3. Wound care 4. Pleural fluid studies 5. Aspiration precautions 6. Tube feeding as tolerated once G-tube is replaced 7. Discuss with nephrology agree that overall prognosis is very poor palliative care approach would be more appropriate. Also would not recommend repeat intubation and mechanical ventilation. Problems: ZANDRA ROBISON MD, [facility] Jan 22, 2017 14:40
[2017-01-22] MEDS: LATANOPROST 0.005% 2.5 ML OPH BOTH EYES SCH (20:40)
[2017-01-22] MEDS: MEROPENEM 500MG/50 ML (PMX) 50 ML IVPB SCH (20:40)
[2017-01-22] MEDS: DEXTROSE 50% 50 ML SYRINGE IV PRN (20:54)
[2017-01-22] MEDS: VANCOMYCIN 1 GM in NS 250 ML IVPB SCH (22:16)
--- NOTE | 2017-01-22 22:26 | PN ---
Date/Time of Note Date/Time of Note DATE: 01/22/17 TIME: 22:20 Assessment/Plan Lines/Catheters IV Catheter Type (from [facility]): PICC Line Rivas in Place (from [facility]): Yes Assessment/Plan Assessment/Plan [facility] Progress Note Date of Service: 01/22/17 Today's Impression & Plan: Overall has remained stable. Gallbladder: No new issues. Controlled with perc myron drain. 1. Plan is for laparoscopic cholecystectomy once the patient is medically stabilized (would likely take several weeks to months to accomplish). No further interventions needed at this time. 2, Will need drain care and education for patient and family as well as [facility] staff. Very important to flush the drain with 10 cc of normal saline once a day and record daily outputs. Feeding: Abdomen appears to be improving on the left side with mild to no discomfort. No indication for surgical intervention for this at the moment. May not be able to do a formal swallow test due to lethargy. D/W Dr. Helm who is arranging for replacement of PEG. Nutrition is quickly becoming a high priority issue in the patient's care. 1. Attempt at replacement of PEG feeding tube per Dr. Helm Overall, patient is doing reasonably well given the clinical picture and the extent of her problems. Urinary tract infection is being treated for E. coli. Her mood appears to be depressed and is thought to be appropriate given clinical picture and situational. Would benefit from occasional review from a medication standpoint. Despite her weight, the patient is likely malnourished and very important that the question of feeding gets answered as soon as possible. She is also extremely debilitated from a physical standpoint and very important for physical therapy to continue aggressively addressing this. With above assessment, I've recommended the following for today: 1. Keep in-house 2. Physical therapy involvement 3. Check lab and correct electrolytes as needed 4. Targeted antimicrobial therapy based on culture results 5. Monitor for signs of sepsis since she is at high risk (elevated and rising white blood cell count) Thank you again for allowing us to participate in the care of this very pleasant lady and her wonderful family. If there are any questions, please feel free to contact me at [phone]. Please note that, given the extensive number of diagnoses or management options , the moderate to extensive amount and/or complexity of data needed to be reviewed, and I risk of complications and/or morbidity or mortality, this qualifies as high complexity type of decision-making. Disclaimer: Inadvertent spelling and grammatical errors are likely due to EHR/ dictation software use and do not reflect on the quality of delivered patient care. Also, please note that the electronic time recorded on this node does not necessarily reflect the actual time of the visit. Updated Clinical Summary: A very pleasant 71-year-old lady with multiple comorbid issues including BMI of 35.6 as well as what has been in the hospital since 09/2016 being found unresponsive and multiple issues including congestive heart failure, acute renal failure due to acute tubular necrosis requiring dialysis, urinary tract infection with bacteremia and multiple other issues, who was found to have possible signs of acute cholecystitis on recent imaging. D/c to [facility] ([place] ) 12/25/16. Readmitted to [facility] for abdominal wall pain on the left side on 01/16/2017. Urinary tract infection treated for E. coli. Thoracentesis with removal of approximately 1 L of fluid from her chest 2016. Percutaneous gallbladder drain exchange 01/18/2017. COMORBIDITIES: 1. BMI of 35.6. 2. Acute renal failure (ATN), on maintenance hemodialysis (Friday, , Friday). 3. Congestive heart failure. 4. Anemia. 5. Hypocalcemia. 6. Hypoalbuminemia and malnutrition. 7. Peripheral vascular disease with gangrene of toes of both feet. 8. Recent history of respiratory failure. 9. History of dysphagia requiring PEG placement and feedings. 10. Diabetes mellitus. 11. Leukocytosis from various sources. 12. Funguria with Erica glabrata and Erica albicans of the urine. 13. Escherichia coli and Enterococcus urinary tract infection 10/29/2016. 14. Escherichia coli bacteremia 12/02/2016 (x2 cultures). 15. Repeat culture of the urine 12/02/2016 with E. coli, enterococcus species and Klebsiella pneumoniae, extended-spectrum beta-lactamase. 16. Repeat bacteremia 12/08/2016 with Escherichia coli. 17. Urine positive for Erica albicans 12/11/2016. 18. Clostridium difficile colitis negative on a few stool samples. 19. Bilateral pleural effusions. 20. 2 mm calcified granuloma in the right lower lobe. 21. CT scan of abdomen and pelvis 12/13/2016 showing large amount of pericholecystic fluid with distention of the gallbladder, which could be of acute cholecystitis. 22. Tumefaction sludge, poorly visualized gallstones or soft tissue masses are suspected within the lumen of the distended gallbladder. 23. Anasarca. 24. Status post splenectomy. 25. A 2.8 cm left parapelvic cyst and an adjacent 1.4 cm simple cyst lateral upper portion of the lower third left kidney noted. 26. Atherosclerotic vascular disease. 27. Osteoarthritis of the thoracic and lumbosacral spine. 28. History of acute ST elevation myocardial infarction, inferior wall, status post code STEMI with stent placement, as well as temporary pacer wire. 29. Hyperlipidemia. 30. Possible aspiration pneumonia. 31. S/p CT-guided percutaneous transhepatic cholecystostomy drain placement 06/22, [facility] Subjective: No major events or complaints; no major abd pain; no reported major n/v/d; no sob or cp; + flatus; + BM; minimal activity. Being dialyzed. No new issues. Not able to stand on her own power. Objective: Vitals: See below Exam: GENERAL: On exam, the patient was laying in bed and appeared to be comfortable and in no acute distress. ABDOMEN: Soft, nontender and nondistended. There are no peritoneal signs or guarding. Perc GB drain with bilious output in the tubing. Minimal fluid in the accordion bag. PEG tube site clean. SKIN: Skin appears to be pink and feels warm to touch. NEUROLOGIC: Patient is awake, alert, and follows commands appropriately. Exam/Review of Systems Vital Signs Vitals Vital Signs Date Time Temp Pulse Resp B/P Pulse Ox O2 Delivery O2 Flow Rate FiO2 01/22/17 20:54 97.7 98 17 110/55 95 01/22/17 20:18 Nasal Cannula 2.0 01/19/17 03:48 32 Intake and Output 01/21/17 01/21/17 01/22/17 15:00 23:00 07:00 Intake Total 1320 ml 480 ml Output Total 505 ml Balance 815 ml 480 ml Results Result Diagram: 01/22/17 1310 01/22/17 0556 SHANA ROSARIO M.D. Jan 22, 2017 22:26
[2017-01-23] VITALS (22 sets, daily range): BP systolic 106–141; BP diastolic 37–70; PULSE 87–105; RESP 14–19
[2017-01-23] MEDS: INSULIN ASPART [NOVOLOG] 3 ML PEN SC SCH ×6 (01:00→23:44)
[2017-01-23] MEDS: ACCUCHECK AT 2AM (Patients on SS coverage) XX SCH (01:39)
[2017-01-23] MEDS: LEVALBUTEROL (NEB) 0.31 MG/3 ML AMP HHN SCH ×4 (02:00→20:23)
[2017-01-23] MEDS: morphine 2 MG INJ IV PRN (02:02)
[2017-01-23] MEDS: DEXTROSE 5%-0.45% NACL 1,000 ML IV SCH ×2 (05:16→22:20)
[2017-01-23 06:50] LABS: ADD SCAN DIFF NO
[2017-01-23 07:02] LABS: ABNORMAL IP MESSAGE 1; HEMATOCRIT 26.9 % (37.0-47.0); HEMOGLOBIN 7.9 g/dl (12.0-16.0); MEAN CORPUSCULAR HEMOGLOBIN 27.7 pg (29.0-33.0); MEAN CORPUSCULAR HGB CONC 29.4 g/dl (32.0-37.0); MEAN CORPUSCULAR VOLUME 94.4 fl (82.0-101.0); MEAN PLATELET VOLUME 9.3 fl (7.4-10.4); PLATELET COUNT 215 10^3/UL (140-415); RED BLOOD COUNT 2.85 10^6/ul (4.20-5.40); RED CELL DISTRIBUTION WIDTH 19.6 % (11.5-14.5); WHITE BLOOD COUNT 10.8 10^3/ul (4.8-10.8)
[2017-01-23 07:26] LABS: POTASSIUM 3.4 mmol/L (3.5-5.1)
[2017-01-23] MEDS: INSULIN GLARGINE [LANtus] 3 ML PEN SC SCH (07:58)
[2017-01-23] MEDS: IPRATROPIUM (NEB) 0.5 MG/2.5 ML AMP HHN SCH ×3 (08:00→20:23)
[2017-01-23] MEDS: COLLAGENASE 30 GM TUBE TOP SCH (09:00)
[2017-01-23] MEDS: NEOMYC/POLYMYX/BACIT 30 GM OINT TOP SCH ×3 (09:00→22:17)
[2017-01-23] MEDS: METOPROLOL 5 MG INJ IV SCH ×2 (09:00→22:15)
[2017-01-23] MEDS: ENOXAPARIN 30 MG/0.3 ML SYG SC SCH (09:00)
--- NOTE | 2017-01-23 09:27 | CONS ---
Date/Time of Note Date/Time of Note DATE: 01/23/17 TIME: 09:21 Assessment/Plan Assessment/Plan Chief Complaint/Hosp Course Impression: 1. Renal failure. I will order dry ultrafiltration for tomorrow. She continues to have flank edema. She remains quite weak. 2. Multiple medical problems including insulin-dependent diabetes mellitus, atherosclerotic heart disease with acute WA and status post cardiac arrest with acute renal failure and anoxic encephalopathy, congestive heart failure, anemia of chronic disease, malnutrition, dysphagia requiring PEG placement , urinary tract infection , acute cholecystitis with drainage tube in place, peripheral vascular disease, history of her respiratory failure, history of acute cholecystitis with gallbladder drainage tube in place . She was admitted now because her gastric feeding tube dislodged and some of her feeding went into her abdominal cavity. She was admitted and thought to be septic at the time of admission. Plan: 1. I will order ultrafiltration for tomorrow. 2. Continue Epogen 3. Patient to have percutaneous endoscopic gastric tube placed today. 4. Agree with broad-spectrum antibiotics 5. I did speak to her regarding her current condition and advanced directives. I asked him to think about whether he would want her reintubated should that be needed . She had originally voiced the opinion that she did not want to be intubated. However this may have changed. She has had a rather stormy medical course over the last 4 months. She has shown very little improvement neurologically . I told the that we would continue everything else that we are doing including dialysis . Problems: Consultation Date/Type/Reason Admit Date/Time Jan 16, 2017 at 22:45 Initial Consult Date 01/18/17 Type of Consultation: renal Referring Provider: SHAMA LOPEZ MD 24 HR Interval Summary Free Text/Dictation She is lethargic. She does open her eyes to verbal stimuli and does speak 1 word sentences. He continues to be extremely weak. Constitutional: no complaints, poor po Exam/Review of Systems Vital Signs Vitals Vital Signs Date Time Temp Pulse Resp B/P Pulse Ox O2 Delivery O2 Flow Rate FiO2 01/23/17 08:07 91 01/23/17 08:01 100 2.5 01/23/17 08:01 18 Nasal Cannula 01/23/17 07:30 98.1 141/70 Intake and Output 01/22/17 01/22/17 01/23/17 15:00 23:00 07:00 Intake Total 700 ml 110 ml 610 ml Output Total 4200 ml 300 ml 400 ml Balance -3500 ml -190 ml 210 ml Exam Constitutional: frail, obese Psych: depression Neck: supple Respiratory: clear to auscultation, diminished breath sounds Cardiovascular: edema, regular rate and rhythm Gastrointestinal: non-tender, soft Extremities: edema Results Result Diagram: 01/23/17 0635 01/23/17 0635 Results 24 hrs Laboratory Tests Test 01/22/17 13:02 01/22/17 13:10 01/22/17 17:29 01/22/17 20:45 Bedside Glucose 122 82 64 L White Blood Count 12.3 H Red Blood Count 3.18 L Hemoglobin 8.9 L Hematocrit 29.7 L Mean Corpuscular Volume 93.4 Mean Corpuscular Hemoglobin 28.0 L Mean Corpuscular Hemoglobin Concent 30.0 L Red Cell Distribution Width 19.5 H Platelet Count 227 Mean Platelet Volume 9.1 Neutrophils % 67.0 Band Neutrophils % 4.0 Lymphocytes % 23.0 Monocytes % 2.0 Eosinophils % Basophils % Metamyelocytes % 2.0 H Myelocytes % 2.0 H Nucleated Red Blood Cells % Neutrophils # 8.2 H Lymphocytes # 2.8 Monocytes # 0.2 L Eosinophils # Basophils # Metamyelocytes # 0.2 Myelocytes # 0.2 Nucleated Red Blood Cells # Differential Comment MANUAL DIFF Test 01/22/17 21:27 01/22/17 21:58 01/23/17 01:35 01/23/17 05:15 Bedside Glucose 111 104 106 137 Test 01/23/17 06:35 01/23/17 07:53 White Blood Count 10.8 Red Blood Count 2.85 L Hemoglobin 7.9 L Hematocrit 26.9 L Mean Corpuscular Volume 94.4 Mean Corpuscular Hemoglobin 27.7 L Mean Corpuscular Hemoglobin Concent 29.4 L Red Cell Distribution Width 19.6 H Platelet Count 215 Mean Platelet Volume 9.3 Neutrophils % Eosinophils % Neutrophils # Eosinophils # Sodium Level 140 Potassium Level 3.4 L Chloride Level 101 Carbon Dioxide Level 29 Anion Gap 13 Blood Urea Nitrogen 24 #H Creatinine 1.00 Glucose Level 145 Calcium Level 8.0 L Bedside Glucose 173 Medications Medications Current Medications Metoprolol Tartrate (Lopressor) 2.5 mg BID IV Last administered on 01/21/17t 21 :16; Admin Dose 2.5 MG; Start 01/17/17 at 09:00 Miscellaneous Information 1 ea NOTE XX ; Start 01/16/17 at 23:30 Glucose (Glutose) 15 gm Q15M PRN PO DECREASED GLUCOSE; Start 01/16/17 at 23:30 Glucose (Glutose) 22.5 gm Q15M PRN PO DECREASED GLUCOSE; Start 01/16/17 at 23: 30 Dextrose (D50w Syringe) 25 ml Q15M PRN IV DECREASED GLUCOSE Last administered on 01/22/17 20:54; Admin Dose 25 ML; Start 01/16/17 at 23:30 Dextrose (D50w Syringe) 50 ml Q15M PRN IV DECREASED GLUCOSE; Start 01/16/17 at 23:30 Glucagon (Glucagen) 1 mg Q15M PRN IM DECREASED GLUCOSE; Start 01/16/17 at 23:30 Glucose (Glutose) 15 gm Q15M PRN BUCCAL DECREASED GLUCOSE; Start 01/16/17 at 23 :30 Diagnostic Test (Pha) (Accu-Chek) 1 ea 02 XX Last administered on 01/21/17 02: 51; Admin Dose 1 EA; Start 01/18/17 at 02:00 Latanoprost (Xalatan) 1 drop HS BOTH EYES Last administered on 01/22/17 20:40 ; Admin Dose 1 DROP; Start 01/17/17 at 21:00 Insulin Aspart (Novolog Insulin Pen) NOVOLOG *MILD* ALGORI... Q4 SC Last administered on 01/23/17 07:57; Admin Dose 2 UNIT; Start 01/17/17 at 21:00 Epoetin Raj (Epogen (Esrd)) 10,000 units TuThSa@17 SC Last administered on 18:14; Admin Dose 10,000 UNITS; Start 01/18/17 at 17:00 Ondansetron HCl (Zofran Inj) 4 mg Q6H PRN IV NAUSEA AND/OR VOMITING; Start at 00:30 Collagenase (Santyl) 1 applic DAILY TOP Last administered on 01/22/17 08:31; Admin Dose 1 APPLIC; Start 01/18/17 at 16:00 Collagenase 1 applic 1 applic PRN PRN TOP WOUND CARE; Start 01/18/17 at 15:00 Meropenem/Sodium Chloride (Merrem 500mg/50 ml(Pmx)) 50 ml @ 100 mls/hr DAILY@ 20 IVPB Last administered on 01/22/17 20:40; Admin Dose 100 MLS/HR; Start at 20:00 Enoxaparin Sodium (Lovenox) 30 mg DAILY SC Last administered on 01/21/17 08:04 ; Admin Dose 30 MG; Start 01/20/17 at 09:00 Insulin Glargine 20 unit 20 unit DAILY@08 SC Last administered on 01/23/17 07: 58; Admin Dose 20 UNIT; Start 01/21/17 at 08:00 Dextrose/Sodium Chloride (D5-1/2ns) 1,000 ml @ 60 mls/hr [id number] IV Last administered on 01/23/17 05:16; Admin Dose 60 MLS/HR; Start 01/20/17 at 09:30 Bisacodyl (Dulcolax Supp) 10 mg BID PRN [place] CONSTIPATION; Start 01/20/17 at 17: 00 Sodium Biphosphate/ Sodium Phosphate (Fleet Enema) 133 ml BID PRN [place] CONSTIPATION; Start 01/20/17 at 17:00 Neomycin/ Polymyxin/ Bacitracin 1 applic 1 applic TID TOP Last administered on 01/22/17 20:42; Admin Dose 1 APPLIC; Start 01/21/17 at 21:00 Vancomycin HCl (Vancocin) 250 ml @ 125 mls/hr Q96H IVPB Last administered on 22:16; Admin Dose 125 MLS/HR; Start 01/22/17 at 22:00 Morphine Sulfate (morphine) 2 mg Q4H PRN IV PAIN Last administered on 02:02; Admin Dose 2 MG; Start 01/22/17 at 16:00 DAMIR MARTINEZ MD Jan 23, 2017 09:27
--- NOTE | 2017-01-23 10:52 | CONS ---
Date/Time of Note Date/Time of Note DATE: 01/23/17 TIME: 10:50 Assessment/Plan Assessment/Plan Chief Complaint/Hosp Course 1) SubQ emphysema due to dislodged g-tube culture the wound site and continue with vanco/zosyn 01/18 - g-tube wound cx is NGTD 01/19 - g-tube wound cx has scant CoNS, doubt this is significant 01/20 - await decision regarding g-tube re-insertion 01/21 - pt is too lethargic for swallow eval to be done, re-attempt today 01/22 - pt to get new g-tube placed today 01/23 - unable to get g-tube yesterday, re-scheduled for today 2) choleycystitis pt has had a drain in place for this until she is ready for surgery will cx the fluid that is present 01/18 - AMBROSE drain cx has growth but too young continue with vanco/zosyn CT showed distending GB and gallstones but no fluid around the GB 01/19 - AMBROSE drain is growing regular klebsiella and MRSA due to kleb +ESBL in urine will change zosyn to merrem, to continue with vanco contact isolation ordered 01/20 - continue with vanco/merrem at present 01/22 - WBC almost back to normal day 01/13 of vanco and day / of merrem likely will change to po augmentin/bactrim in 3 days if WBC is ok 01/23 - no new recs 3) recent STEMI and hx of CABG 4) renal failure pt has very good creatinine but is still receiving dialysis she also has distended bladder by CT will get u/a and urine cx, nurse to straight cath vanco/zosyn should cover 5) sacral ulcer unable to see nurse to get picture 01/18 - no sign for infection according to notes 6) UTI 01/18 - pus is coming out from guevara urine cx is growing GNR continue with zosyn as WBC is decreasing 01/19 - urine cx has kleb +ESBL change zosyn to merrem merrem to be given after HD on dialysis days 01/20 - no change 01/21 - pt's urine output is picking up 01/22 - day 4/7 of merrem 7) R pleural effusion with possible consolidation 01/18 - no phlegm production on vanco/zosyn at present will order nasal for MRSA pt to possibly get R thorancentesis 01/19 - pleural fluid does not appear to be infected with low WBC count and less than 50% PMN's will check LDH in serum to verify if exudative or transudative 01/20 - LDH results consistent with exudative process, cx remain NGTD 01/21 - pleural fluid cx remains NGTD 01/22 - pleural cx was neg 8) 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 01/20 - no sign of cellulitis around these toes 01/22 - stable Problems: Consultation Date/Type/Reason Admit Date/Time Jan 16, 2017 at 22:45 Initial Consult Date 01/17/17 Type of Consultation: ID Referring Provider: SHAMA LOPEZ MD 24 HR Interval Summary Free Text/Dictation spoke to pt is more alert today and responds more quickly to questions she denies abd pain No V, D Exam/Review of Systems Vital Signs Vitals Vital Signs Date Time Temp Pulse Resp B/P Pulse Ox O2 Delivery O2 Flow Rate FiO2 01/23/17 08:07 91 01/23/17 08:01 100 2.5 01/23/17 08:01 18 Nasal Cannula 01/23/17 07:30 98.1 141/70 Intake and Output 01/22/17 01/22/17 01/23/17 15:00 23:00 07:00 Intake Total 700 ml 110 ml 610 ml Output Total 4200 ml 300 ml 400 ml Balance -3500 ml -190 ml 210 ml Exam Constitutional: alert Head: normocephalic ENMT: mucosa pink and moist Respiratory: clear to auscultation Cardiovascular: regular rate and rhythm Gastrointestinal: non-tender, soft Results Result Diagram: 01/23/17 0635 01/23/17 0635 Results 24 hrs Laboratory Tests Test 01/22/17 13:02 01/22/17 13:10 01/22/17 17:29 01/22/17 20:45 Bedside Glucose 122 82 64 L White Blood Count 12.3 H Red Blood Count 3.18 L Hemoglobin 8.9 L Hematocrit 29.7 L Mean Corpuscular Volume 93.4 Mean Corpuscular Hemoglobin 28.0 L Mean Corpuscular Hemoglobin Concent 30.0 L Red Cell Distribution Width 19.5 H Platelet Count 227 Mean Platelet Volume 9.1 Neutrophils % 67.0 Band Neutrophils % 4.0 Lymphocytes % 23.0 Monocytes % 2.0 Eosinophils % Basophils % Metamyelocytes % 2.0 H Myelocytes % 2.0 H Nucleated Red Blood Cells % Neutrophils # 8.2 H Lymphocytes # 2.8 Monocytes # 0.2 L Eosinophils # Basophils # Metamyelocytes # 0.2 Myelocytes # 0.2 Nucleated Red Blood Cells # Differential Comment MANUAL DIFF Test 01/22/17 21:27 01/22/17 21:58 01/23/17 01:35 01/23/17 05:15 Bedside Glucose 111 104 106 137 Test 01/23/17 06:35 01/23/17 07:53 White Blood Count 10.8 Red Blood Count 2.85 L Hemoglobin 7.9 L Hematocrit 26.9 L Mean Corpuscular Volume 94.4 Mean Corpuscular Hemoglobin 27.7 L Mean Corpuscular Hemoglobin Concent 29.4 L Red Cell Distribution Width 19.6 H Platelet Count 215 Mean Platelet Volume 9.3 Neutrophils % Eosinophils % Neutrophils # Eosinophils # Sodium Level 140 Potassium Level 3.4 L Chloride Level 101 Carbon Dioxide Level 29 Anion Gap 13 Blood Urea Nitrogen 24 #H Creatinine 1.00 Glucose Level 145 Calcium Level 8.0 L Bedside Glucose 173 Medications Medications Current Medications Metoprolol Tartrate (Lopressor) 2.5 mg BID IV Last administered on 01/23/17 09 :00; Admin Dose 2.5 MG; Start 01/17/17 at 09:00 Miscellaneous Information 1 ea NOTE XX ; Start 01/16/17 at 23:30 Glucose (Glutose) 15 gm Q15M PRN PO DECREASED GLUCOSE; Start 01/16/17 at 23:30 Glucose (Glutose) 22.5 gm Q15M PRN PO DECREASED GLUCOSE; Start 01/16/17 at 23: 30 Dextrose (D50w Syringe) 25 ml Q15M PRN IV DECREASED GLUCOSE Last administered on 01/22/17 20:54; Admin Dose 25 ML; Start 01/16/17 at 23:30 Dextrose (D50w Syringe) 50 ml Q15M PRN IV DECREASED GLUCOSE; Start 01/16/17 at 23:30 Glucagon (Glucagen) 1 mg Q15M PRN IM DECREASED GLUCOSE; Start 01/16/17 at 23:30 Glucose (Glutose) 15 gm Q15M PRN BUCCAL DECREASED GLUCOSE; Start 01/16/17 at 23 :30 Diagnostic Test (Pha) (Accu-Chek) 1 ea 02 XX Last administered on 01/21/17 02: 51; Admin Dose 1 EA; Start 01/18/17 at 02:00 Latanoprost (Xalatan) 1 drop HS BOTH EYES Last administered on 01/22/17 20:40 ; Admin Dose 1 DROP; Start 01/17/17 at 21:00 Insulin Aspart (Novolog Insulin Pen) NOVOLOG *MILD* ALGORI... Q4 SC Last administered on 01/23/17 07:57; Admin Dose 2 UNIT; Start 01/17/17 at 21:00 Epoetin Raj (Epogen (Esrd)) 10,000 units TuThSa@17 SC Last administered on 18:14; Admin Dose 10,000 UNITS; Start 01/18/17 at 17:00 Ondansetron HCl (Zofran Inj) 4 mg Q6H PRN IV NAUSEA AND/OR VOMITING; Start at 00:30 Collagenase (Santyl) 1 applic DAILY TOP Last administered on 01/23/17 09:00; Admin Dose 1 APPLIC; Start 01/18/17 at 16:00 Collagenase 1 applic 1 applic PRN PRN TOP WOUND CARE; Start 01/18/17 at 15:00 Meropenem/Sodium Chloride (Merrem 500mg/50 ml(Pmx)) 50 ml @ 100 mls/hr DAILY@ 20 IVPB Last administered on 01/22/17 20:40; Admin Dose 100 MLS/HR; Start at 20:00 Enoxaparin Sodium (Lovenox) 30 mg DAILY SC Last administered on 01/23/17 09:00 ; Admin Dose 30 MG; Start 01/20/17 at 09:00 Insulin Glargine 20 unit 20 unit DAILY@08 SC Last administered on 01/23/17 07: 58; Admin Dose 20 UNIT; Start 01/21/17 at 08:00 Dextrose/Sodium Chloride (D5-1/2ns) 1,000 ml @ 60 mls/hr [id number] IV Last administered on 01/23/17 05:16; Admin Dose 60 MLS/HR; Start 01/20/17 at 09:30 Bisacodyl (Dulcolax Supp) 10 mg BID PRN [place] CONSTIPATION; Start 01/20/17 at 17: 00 Sodium Biphosphate/ Sodium Phosphate (Fleet Enema) 133 ml BID PRN [place] CONSTIPATION; Start 01/20/17 at 17:00 Neomycin/ Polymyxin/ Bacitracin 1 applic 1 applic TID TOP Last administered on 01/23/17 09:00; Admin Dose 1 APPLIC; Start 01/21/17 at 21:00 Vancomycin HCl (Vancocin) 250 ml @ 125 mls/hr Q96H IVPB Last administered on 22:16; Admin Dose 125 MLS/HR; Start 01/22/17 at 22:00 Morphine Sulfate (morphine) 2 mg Q4H PRN IV PAIN Last administered on 02:02; Admin Dose 2 MG; Start 01/22/17 at 16:00 TR GOODEN MD Jan 23, 2017 10:52
--- NOTE | 2017-01-23 11:37 | CONS ---
Date/Time of Note Date/Time of Note DATE: 01/23/17 TIME: 11:36 Consult Date/Type/Reason Admit Date/Time Jan 16, 2017 at 22:45 Initial Consult Date 01/18/17 Type of Consultation: Pulmonary Ordering Provider: SHAMA LOPEZ MD Subjective Comfortable Makes eye contact attempts to answer questions but significant neuromuscular weakness. Objective Vital Signs Date Time Temp Pulse Resp B/P Pulse Ox O2 Delivery O2 Flow Rate FiO2 01/23/17 08:07 91 01/23/17 08:01 100 2.5 01/23/17 08:01 18 Nasal Cannula 01/23/17 07:30 98.1 141/70 Intake and Output 01/22/17 01/22/17 01/23/17 14:59 22:59 06:59 Intake Total 760 ml 110 ml 610 ml Output Total 4200 ml 300 ml 400 ml Balance -3440 ml -190 ml 210 ml Exam GENERAL: Chronically ill-appearing lady comfortable at rest no acute distress VITAL SIGNS: per chart NECK: Supple. No JVD or lymphadenopathy. CARDIAC EXAM: S1, S2. No added sounds or murmurs. CHEST: Diminished air entry both lung fairchild poor inspiratory effort ABDOMEN: Soft, nontender. No guarding or rebound. EXTREMITIES: No cyanosis, clubbing edema +2 NEUROLOGIC: Generalized weakness. Results/Medications Result Diagram: 01/23/17 0635 01/23/17 0635 Results 24 hrs Laboratory Tests Test 01/22/17 13:02 01/22/17 13:10 01/22/17 17:29 01/22/17 20:45 Bedside Glucose 122 82 64 L White Blood Count 12.3 H Red Blood Count 3.18 L Hemoglobin 8.9 L Hematocrit 29.7 L Mean Corpuscular Volume 93.4 Mean Corpuscular Hemoglobin 28.0 L Mean Corpuscular Hemoglobin Concent 30.0 L Red Cell Distribution Width 19.5 H Platelet Count 227 Mean Platelet Volume 9.1 Neutrophils % 67.0 Band Neutrophils % 4.0 Lymphocytes % 23.0 Monocytes % 2.0 Eosinophils % Basophils % Metamyelocytes % 2.0 H Myelocytes % 2.0 H Nucleated Red Blood Cells % Neutrophils # 8.2 H Lymphocytes # 2.8 Monocytes # 0.2 L Eosinophils # Basophils # Metamyelocytes # 0.2 Myelocytes # 0.2 Nucleated Red Blood Cells # Differential Comment MANUAL DIFF Test 01/22/17 21:27 01/22/17 21:58 01/23/17 01:35 01/23/17 05:15 Bedside Glucose 111 104 106 137 Test 01/23/17 06:35 01/23/17 07:53 White Blood Count 10.8 Red Blood Count 2.85 L Hemoglobin 7.9 L Hematocrit 26.9 L Mean Corpuscular Volume 94.4 Mean Corpuscular Hemoglobin 27.7 L Mean Corpuscular Hemoglobin Concent 29.4 L Red Cell Distribution Width 19.6 H Platelet Count 215 Mean Platelet Volume 9.3 Neutrophils % Eosinophils % Neutrophils # Eosinophils # Sodium Level 140 Potassium Level 3.4 L Chloride Level 101 Carbon Dioxide Level 29 Anion Gap 13 Blood Urea Nitrogen 24 #H Creatinine 1.00 Glucose Level 145 Calcium Level 8.0 L Bedside Glucose 173 Medications Current Medications Metoprolol Tartrate (Lopressor) 2.5 mg BID IV Last administered on 01/23/17 09 :00; Admin Dose 2.5 MG; Start 01/17/17 at 09:00 Miscellaneous Information 1 ea NOTE XX ; Start 01/16/17 at 23:30 Glucose (Glutose) 15 gm Q15M PRN PO DECREASED GLUCOSE; Start 01/16/17 at 23:30 Glucose (Glutose) 22.5 gm Q15M PRN PO DECREASED GLUCOSE; Start 01/16/17 at 23: 30 Dextrose (D50w Syringe) 25 ml Q15M PRN IV DECREASED GLUCOSE Last administered on 01/22/17 20:54; Admin Dose 25 ML; Start 01/16/17 at 23:30 Dextrose (D50w Syringe) 50 ml Q15M PRN IV DECREASED GLUCOSE; Start 01/16/17 at 23:30 Glucagon (Glucagen) 1 mg Q15M PRN IM DECREASED GLUCOSE; Start 01/16/17 at 23:30 Glucose (Glutose) 15 gm Q15M PRN BUCCAL DECREASED GLUCOSE; Start 01/16/17 at 23 :30 Diagnostic Test (Pha) (Accu-Chek) 1 ea 02 XX Last administered on 01/21/17 02: 51; Admin Dose 1 EA; Start 01/18/17 at 02:00 Latanoprost (Xalatan) 1 drop HS BOTH EYES Last administered on 01/22/17 20:40 ; Admin Dose 1 DROP; Start 01/17/17 at 21:00 Insulin Aspart (Novolog Insulin Pen) NOVOLOG *MILD* ALGORI... Q4 SC Last administered on 01/23/17 07:57; Admin Dose 2 UNIT; Start 01/17/17 at 21:00 Epoetin Raj (Epogen (Esrd)) 10,000 units TuThSa@17 SC Last administered on 18:14; Admin Dose 10,000 UNITS; Start 01/18/17 at 17:00 Ondansetron HCl (Zofran Inj) 4 mg Q6H PRN IV NAUSEA AND/OR VOMITING; Start at 00:30 Collagenase (Santyl) 1 applic DAILY TOP Last administered on 01/23/17 09:00; Admin Dose 1 APPLIC; Start 01/18/17 at 16:00 Collagenase 1 applic 1 applic PRN PRN TOP WOUND CARE; Start 01/18/17 at 15:00 Meropenem/Sodium Chloride (Merrem 500mg/50 ml(Pmx)) 50 ml @ 100 mls/hr DAILY@ 20 IVPB Last administered on 01/22/17 20:40; Admin Dose 100 MLS/HR; Start at 20:00 Enoxaparin Sodium (Lovenox) 30 mg DAILY SC Last administered on 01/23/17 09:00 ; Admin Dose 30 MG; Start 01/20/17 at 09:00 Insulin Glargine 20 unit 20 unit DAILY@08 SC Last administered on 01/23/17 07: 58; Admin Dose 20 UNIT; Start 01/21/17 at 08:00 Dextrose/Sodium Chloride (D5-1/2ns) 1,000 ml @ 60 mls/hr [id number] IV Last administered on 01/23/17 05:16; Admin Dose 60 MLS/HR; Start 01/20/17 at 09:30 Bisacodyl (Dulcolax Supp) 10 mg BID PRN [place] CONSTIPATION; Start 01/20/17 at 17: 00 Sodium Biphosphate/ Sodium Phosphate (Fleet Enema) 133 ml BID PRN [place] CONSTIPATION; Start 01/20/17 at 17:00 Neomycin/ Polymyxin/ Bacitracin 1 applic 1 applic TID TOP Last administered on 01/23/17 09:00; Admin Dose 1 APPLIC; Start 01/21/17 at 21:00 Vancomycin HCl (Vancocin) 250 ml @ 125 mls/hr Q96H IVPB Last administered on 22:16; Admin Dose 125 MLS/HR; Start 01/22/17 at 22:00 Morphine Sulfate (morphine) 2 mg Q4H PRN IV PAIN Last administered on 02:02; Admin Dose 2 MG; Start 01/22/17 at 16:00 Assessment/Plan Chief Complaint/Hosp Course Switch assessment 1. Severe sepsis likely polymicrobial 2. Status post thoracentesis 800 cc pleural fluid suggestive of transudative process given low protein however elevated LDH noted. No malignant cells noted 3. End-stage renal failure on hemodialysis 4. History ST elevation [place] 5. Recent recurrent hypoxemic respiratory failure 6. Dysphagia G-tube has been dislodged. Patient has significant aspiration risk Plan 1. Broad-spectrum antibiotics per infectious diseases 2. Supplemental O2 as needed 3. Wound care 4. Pleural fluid studies 5. Aspiration precautions 6. Tube feeding as tolerated once G-tube is replaced 7. Continue supportive care but overall prognosis very poor benefit from palliative care consult Problems: ZANDRA ROBISON MD, [facility] Jan 23, 2017 11:37
--- NOTE | 2017-01-23 12:59 | PN ---
Date/Time of Note Date/Time of Note DATE: 01/23/17 TIME: 12:57 Assessment/Plan Lines/Catheters IV Catheter Type (from Nrs): PICC Line Urinary Cath still in place: Yes Assessment/Plan Assessment/Plan 01/23 hgb by picc low again. will repeat draw by arm and if hgb<8.0 will transfuse. gtube rescheduled to today. 01/22 hgb redraw and is higher 8.9. dialysis done today, awaiting gtube reinsertion. 01/21 surg reports ok for gtube replace. gi reports will plan to place in am. cr increased 1.3 to 1.4. choking on apple sauce yesterday. 01/20 dialysis today, low sugar overall bad day today. 01/19gi- awaiting consult for replacement of g-tube. pt not appear to be able to take po nutrition appropriately. 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 dr lopez notified. -lawrence changed and growing klebsiella---id following and changing abx. -id following and pt on vanco/zosyn---now changed due to klebsiella to vanco/ merrem -gi eval and reports plan to replace g-tube in the am. surg reports wants g- tube placed for nutrition to be restarted. renal- pt producing some urine. renal following and questioning if functionality has improved. fluid overloaded, being diuresed. dialysis restarting. epogen given. cr 1.0. pulm has a right lung infiltrate and mod effusion. pulm following tapped for 1 liter removed. abx changed. been stable dm- on sliding scale. no nutrition yet, sugar running low- lantis decreased. d5 running. cv- h/o arrest, stent [place], cards following. b-danyel restarted. cholecystostomy- surg following and drain changed and growing klebsiella. anemia- discussed with renal if transfusion is necessary. pt given epogen. renal to watch. low in FE. awaiting it g-tube to be reinserted or other source for feeding. hgb better 8.2. today cbc drawn from picc and the hgb 7.4. redraw from arm and 8.9. doing fine. need to give fe once gtube in place. may start tube feeding by the nutrionist orders once cleared by GI. poor iv access. picc placed. Exam/Review of Systems Vital Signs Vitals Vital Signs Date Time Temp Pulse Resp B/P Pulse Ox O2 Delivery O2 Flow Rate FiO2 01/23/17 12:26 87 01/23/17 11:53 98.2 18 116/65 97 01/23/17 10:32 Nasal Cannula 2.0 Intake and Output 01/22/17 01/22/17 01/23/17 15:00 23:00 07:00 Intake Total 700 ml 110 ml 610 ml Output Total 4200 ml 300 ml 400 ml Balance -3500 ml -190 ml 210 ml Results Result Diagram: 01/23/17 0635 01/23/17 0635 Results 24 hrs Laboratory Tests Test 01/22/17 13:02 01/22/17 13:10 01/22/17 17:29 01/22/17 20:45 Bedside Glucose 122 82 64 L White Blood Count 12.3 H Red Blood Count 3.18 L Hemoglobin 8.9 L Hematocrit 29.7 L Mean Corpuscular Volume 93.4 Mean Corpuscular Hemoglobin 28.0 L Mean Corpuscular Hemoglobin Concent 30.0 L Red Cell Distribution Width 19.5 H Platelet Count 227 Mean Platelet Volume 9.1 Neutrophils % 67.0 Band Neutrophils % 4.0 Lymphocytes % 23.0 Monocytes % 2.0 Eosinophils % Basophils % Metamyelocytes % 2.0 H Myelocytes % 2.0 H Nucleated Red Blood Cells % Neutrophils # 8.2 H Lymphocytes # 2.8 Monocytes # 0.2 L Eosinophils # Basophils # Metamyelocytes # 0.2 Myelocytes # 0.2 Nucleated Red Blood Cells # Differential Comment MANUAL DIFF Test 01/22/17 21:27 01/22/17 21:58 01/23/17 01:35 01/23/17 05:15 Bedside Glucose 111 104 106 137 Test 01/23/17 06:35 01/23/17 07:53 01/23/17 12:29 White Blood Count 10.8 Red Blood Count 2.85 L Hemoglobin 7.9 L Hematocrit 26.9 L Mean Corpuscular Volume 94.4 Mean Corpuscular Hemoglobin 27.7 L Mean Corpuscular Hemoglobin Concent 29.4 L Red Cell Distribution Width 19.6 H Platelet Count 215 Mean Platelet Volume 9.3 Neutrophils % Eosinophils % Neutrophils # Eosinophils # Sodium Level 140 Potassium Level 3.4 L Chloride Level 101 Carbon Dioxide Level 29 Anion Gap 13 Blood Urea Nitrogen 24 #H Creatinine 1.00 Glucose Level 145 Calcium Level 8.0 L Bedside Glucose 173 177 Medications Medications Current Medications Metoprolol Tartrate (Lopressor) 2.5 mg BID IV Last administered on 01/23/17 09 :00; Admin Dose 2.5 MG; Start 01/17/17 at 09:00 Miscellaneous Information 1 ea NOTE XX ; Start 01/16/17 at 23:30 Glucose (Glutose) 15 gm Q15M PRN PO DECREASED GLUCOSE; Start 01/16/17 at 23:30 Glucose (Glutose) 22.5 gm Q15M PRN PO DECREASED GLUCOSE; Start 01/16/17 at 23: 30 Dextrose (D50w Syringe) 25 ml Q15M PRN IV DECREASED GLUCOSE Last administered on 01/22/17 20:54; Admin Dose 25 ML; Start 01/16/17 at 23:30 Dextrose (D50w Syringe) 50 ml Q15M PRN IV DECREASED GLUCOSE; Start 01/16/17 at 23:30 Glucagon (Glucagen) 1 mg Q15M PRN IM DECREASED GLUCOSE; Start 01/16/17 at 23:30 Glucose (Glutose) 15 gm Q15M PRN BUCCAL DECREASED GLUCOSE; Start 01/16/17 at 23 :30 Diagnostic Test (Pha) (Accu-Chek) 1 ea 02 XX Last administered on 01/21/17 02: 51; Admin Dose 1 EA; Start 01/18/17 at 02:00 Latanoprost (Xalatan) 1 drop HS BOTH EYES Last administered on 01/22/17 20:40 ; Admin Dose 1 DROP; Start 01/17/17 at 21:00 Insulin Aspart (Novolog Insulin Pen) NOVOLOG *MILD* ALGORI... Q4 SC Last administered on 01/23/17 12:39; Admin Dose 1 UNIT; Start 01/17/17 at 21:00 Epoetin Raj (Epogen (Esrd)) 10,000 units TuThSa@17 SC Last administered on 18:14; Admin Dose 10,000 UNITS; Start 01/18/17 at 17:00 Ondansetron HCl (Zofran Inj) 4 mg Q6H PRN IV NAUSEA AND/OR VOMITING; Start at 00:30 Collagenase (Santyl) 1 applic DAILY TOP Last administered on 01/23/17 09:00; Admin Dose 1 APPLIC; Start 01/18/17 at 16:00 Collagenase 1 applic 1 applic PRN PRN TOP WOUND CARE; Start 01/18/17 at 15:00 Meropenem/Sodium Chloride (Merrem 500mg/50 ml(Pmx)) 50 ml @ 100 mls/hr DAILY@ 20 IVPB Last administered on 01/22/17 20:40; Admin Dose 100 MLS/HR; Start at 20:00 Enoxaparin Sodium (Lovenox) 30 mg DAILY SC Last administered on 01/23/17 09:00 ; Admin Dose 30 MG; Start 01/20/17 at 09:00 Insulin Glargine 20 unit 20 unit DAILY@08 SC Last administered on 01/23/17 07: 58; Admin Dose 20 UNIT; Start 01/21/17 at 08:00 Dextrose/Sodium Chloride (D5-1/2ns) 1,000 ml @ 60 mls/hr [id number] IV Last administered on 01/23/17 05:16; Admin Dose 60 MLS/HR; Start 01/20/17 at 09:30 Bisacodyl (Dulcolax Supp) 10 mg BID PRN RI CONSTIPATION; Start 01/20/17 at 17: 00 Sodium Biphosphate/ Sodium Phosphate (Fleet Enema) 133 ml BID PRN RI CONSTIPATION; Start 01/20/17 at 17:00 Neomycin/ Polymyxin/ Bacitracin 1 applic 1 applic TID TOP Last administered on 01/23/17 09:00; Admin Dose 1 APPLIC; Start 01/21/17 at 21:00 Vancomycin HCl (Vancocin) 250 ml @ 125 mls/hr Q96H IVPB Last administered on 22:16; Admin Dose 125 MLS/HR; Start 01/22/17 at 22:00 Morphine Sulfate (morphine) 2 mg Q4H PRN IV PAIN Last administered on 02:02; Admin Dose 2 MG; Start 01/22/17 at 16:00 SHAW SRINIVASAN MD Jan 23, 2017 12:59
[2017-01-23 13:08] LABS: EOSINOPHILS # 0.1 10^3/ul (0.0-0.5); ERYTHROBLAST% (NRBC) (M) 1 % (0-0); LYMPHOCYTES # 1.6 10^3/ul (0.8-2.9); METAMYELOCYTES %M 3 % (0-0); MONOCYTE # 1.6 10^3/ul (0.3-0.9); MYELOCYTES # 0.2; MYELOCYTES % (M) 2 % (0-0)
--- NOTE | 2017-01-23 13:19 | PN ---
Date/Time of Note Date/Time of Note DATE: 01/23/17 TIME: 13:16 Assessment/Plan Lines/Catheters IV Catheter Type (from [facility]): PICC Line Rivas in Place (from [facility]): Yes Assessment/Plan Assessment/Plan [facility] Progress Note Date of Service: 01/23/17 Today's Impression & Plan: Overall has remained stable. Gallbladder: No new issues. Controlled with perc myron drain. 1. Plan is for laparoscopic cholecystectomy once the patient is medically stabilized (would likely take several weeks to months to accomplish). No further interventions needed at this time. 2, Will need drain care and education for patient and family as well as retirement staff. Very important to flush the drain with 10 cc of normal saline once a day and record daily outputs. Feeding: Abdomen appears to be improving on the left side with mild to no discomfort. No indication for surgical intervention for this at the moment. May not be able to do a formal swallow test due to lethargy. Awaiting replacement of PEG. Nutrition is quickly becoming a high priority issue in the patient's care. 1. Attempt at replacement of PEG feeding tube per Dr. Helm Overall, patient is doing reasonably well and improving given the clinical picture and the extent of her problems. Today, WBC is normal. Urinary tract infection is being treated for E. coli. Her mood appears to be depressed and is thought to be appropriate given clinical picture and situational. Would benefit from occasional review from a medication standpoint. Despite her weight , the patient is likely malnourished and very important that the question of feeding gets answered as soon as possible. She is also extremely debilitated from a physical standpoint and very important for physical therapy to continue aggressively addressing this. With above assessment, I've recommended the following for today: 1. Keep in-house 2. Physical therapy involvement 3. Check lab and correct electrolytes as needed 4. Targeted antimicrobial therapy based on culture results 5. Monitor for signs of sepsis since she is at high risk (elevated and rising white blood cell count) Thank you again for allowing us to participate in the care of this very pleasant lady and her wonderful family. If there are any questions, please feel free to contact me at [phone]. Please note that, given the extensive number of diagnoses or management options , the moderate to extensive amount and/or complexity of data needed to be reviewed, and I risk of complications and/or morbidity or mortality, this qualifies as high complexity type of decision-making. Disclaimer: Inadvertent spelling and grammatical errors are likely due to EHR/ dictation software use and do not reflect on the quality of delivered patient care. Also, please note that the electronic time recorded on this node does not necessarily reflect the actual time of the visit. Updated Clinical Summary: A very pleasant 71-year-old lady with multiple comorbid issues including BMI of 35.6 as well as what has been in the hospital since 09/2016 being found unresponsive and multiple issues including congestive heart failure, acute renal failure due to acute tubular necrosis requiring dialysis, urinary tract infection with bacteremia and multiple other issues, who was found to have possible signs of acute cholecystitis on recent imaging. D/c to [facility] ([place] ) 12/25/16. Readmitted to [facility] for abdominal wall pain on the left side on 01/16/2017. Urinary tract infection treated for E. coli. Thoracentesis with removal of approximately 1 L of fluid from her chest 2016. Percutaneous gallbladder drain exchange 01/18/2017. COMORBIDITIES: 1. BMI of 35.6. 2. Acute renal failure (ATN), on maintenance hemodialysis (Friday, , Friday). 3. Congestive heart failure. 4. Anemia. 5. Hypocalcemia. 6. Hypoalbuminemia and malnutrition. 7. Peripheral vascular disease with gangrene of toes of both feet. 8. Recent history of respiratory failure. 9. History of dysphagia requiring PEG placement and feedings. 10. Diabetes mellitus. 11. Leukocytosis from various sources. 12. Funguria with Erica glabrata and Erica albicans of the urine. 13. Escherichia coli and Enterococcus urinary tract infection 10/29/2016. 14. Escherichia coli bacteremia 12/02/2016 (x2 cultures). 15. Repeat culture of the urine 12/02/2016 with E. coli, enterococcus species and Klebsiella pneumoniae, extended-spectrum beta-lactamase. 16. Repeat bacteremia 12/08/2016 with Escherichia coli. 17. Urine positive for Erica albicans 12/11/2016. 18. Clostridium difficile colitis negative on a few stool samples. 19. Bilateral pleural effusions. 20. 2 mm calcified granuloma in the right lower lobe. 21. CT scan of abdomen and pelvis 12/13/2016 showing large amount of pericholecystic fluid with distention of the gallbladder, which could be of acute cholecystitis. 22. Tumefaction sludge, poorly visualized gallstones or soft tissue masses are suspected within the lumen of the distended gallbladder. 23. Anasarca. 24. Status post splenectomy. 25. A 2.8 cm left parapelvic cyst and an adjacent 1.4 cm simple cyst lateral upper portion of the lower third left kidney noted. 26. Atherosclerotic vascular disease. 27. Osteoarthritis of the thoracic and lumbosacral spine. 28. History of acute ST elevation myocardial infarction, inferior wall, status post code STEMI with stent placement, as well as temporary pacer wire. 29. Hyperlipidemia. 30. Possible aspiration pneumonia. 31. S/p CT-guided percutaneous transhepatic cholecystostomy drain placement 06/22, [facility] Subjective: No major events or complaints; no major abd pain; no reported major n/v/d; no sob or cp; + flatus; + BM; minimal activity. No new issues. Not able to stand on her own power. Objective: Vitals: See below Exam: GENERAL: On exam, the patient was laying in bed and appeared to be comfortable and in no acute distress. ABDOMEN: Soft, nontender and nondistended. There are no peritoneal signs or guarding. Perc GB drain with bilious output in the tubing. Minimal fluid in the accordion bag. PEG tube site clean. SKIN: Skin appears to be pink and feels warm to touch. NEUROLOGIC: Patient is awake, alert, and follows commands appropriately. Exam/Review of Systems Vital Signs Vitals Vital Signs Date Time Temp Pulse Resp B/P Pulse Ox O2 Delivery O2 Flow Rate FiO2 01/23/17 12:26 87 01/23/17 11:53 98.2 18 116/65 97 01/23/17 10:32 Nasal Cannula 2.0 Intake and Output 01/22/17 01/22/17 01/23/17 15:00 23:00 07:00 Intake Total 700 ml 110 ml 610 ml Output Total 4200 ml 300 ml 400 ml Balance -3500 ml -190 ml 210 ml Results Result Diagram: 01/23/17 0635 01/23/17 0635 SHANA ROSARIO M.D. Jan 23, 2017 13:19
[2017-01-23] MEDS: EPOETIN 10000 UNITS/1 ML INJ (ESRD) SC SCH (16:53)
[2017-01-23] MEDS ORDERED: PROPOFOL 20 ML ONE (17:18)
[2017-01-23] MEDS ORDERED: FENTAnyl 50 MCG/ML VIAL ONE (17:18)
[2017-01-23] MEDS ORDERED: PHENYLephrine (100 MCG/ML) 5ML SYG ONE (17:19)
[2017-01-23] MEDS ORDERED: LIDOCAINE 2% (SDV) 5 ML INJ ONE (17:40)
[2017-01-23] MEDS ORDERED: INSULIN ASPART [NOVOLOG] 3 ML PEN SC ONE (18:00)
[2017-01-23] MEDS ORDERED: FENTAnyl 50 MCG/ML VIAL IV PRN ×3 (18:00)
[2017-01-23] MEDS ORDERED: LABETALOL HCL 20MG INJ IV PRN (18:00)
[2017-01-23] MEDS ORDERED: hydrALAzine 20 MG INJ IV PRN (18:00)
[2017-01-23] MEDS ORDERED: EPHEDrine SULFATE 50 MG/5 ML SYG IV PRN (18:00)
[2017-01-23] MEDS: ACETAMINOPHEN 325 MG TAB PO PRN (19:23)
[2017-01-23] MEDS: LATANOPROST 0.005% 2.5 ML OPH BOTH EYES SCH (22:16)
[2017-01-23] MEDS: MEROPENEM 500MG/50 ML (PMX) 50 ML IVPB SCH (22:20)
[2017-01-24] VITALS (18 sets, daily range): BP systolic 97–119; BP diastolic 50–59; PULSE 96–113; RESP 18–19
[2017-01-24] MEDS: INSULIN ASPART [NOVOLOG] 3 ML PEN SC SCH ×3 (01:00→23:32)
[2017-01-24] MEDS: ACCUCHECK AT 2AM (Patients on SS coverage) XX SCH (02:00)
[2017-01-24] MEDS: LEVALBUTEROL (NEB) 0.31 MG/3 ML AMP HHN SCH ×6 (02:00→19:04)
[2017-01-24 06:51] LABS: ADD SCAN DIFF NO
[2017-01-24 07:01] LABS: ABNORMAL IP MESSAGE 1; BASOPHILS % 0.3 % (0.0-2.0); EOSINOPHILS # 0.1 10^3/ul (0.0-0.5); EOSINOPHILS % 1.2 % (0.0-7.0); HEMATOCRIT 28.7 % (37.0-47.0); HEMOGLOBIN 8.5 g/dl (12.0-16.0); LYMPHOCYTES # 1.3 10^3/ul (0.8-2.9); LYMPHOCYTES % 11.1 % (15.0-51.0); MEAN CORPUSCULAR HEMOGLOBIN 27.6 pg (29.0-33.0); MEAN CORPUSCULAR HGB CONC 29.6 g/dl (32.0-37.0); MEAN CORPUSCULAR VOLUME 93.2 fl (82.0-101.0); MEAN PLATELET VOLUME 9.6 fl (7.4-10.4); MONOCYTE # 0.6 10^3/ul (0.3-0.9); NEUTROPHIL # 8.7 10^3/ul (1.6-7.5); NEUTROPHILS % 75.1 % (39.0-77.0); NUCLEATED RED BLOOD CELLS # 0.1 10^3/ul (0.0-0.0); PLATELET COUNT 256 10^3/UL (140-415); RED BLOOD COUNT 3.08 10^6/ul (4.20-5.40); RED CELL DISTRIBUTION WIDTH 19.3 % (11.5-14.5); WHITE BLOOD COUNT 11.5 10^3/ul (4.8-10.8)
[2017-01-24 07:19] LABS: ALBUMIN 2.2 g/dl (3.3-4.9); ALBUMIN/GLOBULIN RATIO 0.66; CALCIUM 8.1 mg/dl (8.4-10.2); CREATININE 0.98 mg/dl (0.44-1.00); POTASSIUM 3.7 mmol/L (3.5-5.1); TOTAL PROTEIN 5.5 g/dl (6.1-8.1)
[2017-01-24] MEDS: IPRATROPIUM (NEB) 0.5 MG/2.5 ML AMP HHN SCH ×4 (07:21→19:04)
[2017-01-24] MEDS ORDERED: MULTIVIT/CA CARB/B CMPLX/FA TAB PO SCH (07:55)
[2017-01-24] MEDS: METOPROLOL 5 MG INJ IV SCH ×2 (09:00→22:08)
--- NOTE | 2017-01-24 09:06 | CONS ---
Date/Time of Note Date/Time of Note DATE: 01/24/17 TIME: 09:01 Assessment/Plan Assessment/Plan Chief Complaint/Hosp Course Impression: 1. Renal failure. I will order dry ultrafiltration for today and tomorrow. She continues to have flank edema. She remains quite weak. Her BUN and creatinine are low. 2. Multiple medical problems including insulin-dependent diabetes mellitus, atherosclerotic heart disease with acute VT and status post cardiac arrest with acute renal failure and anoxic encephalopathy, congestive heart failure, anemia of chronic disease, malnutrition, dysphagia requiring PEG placement , urinary tract infection , acute cholecystitis with drainage tube in place, peripheral vascular disease, history of her respiratory failure, history of acute cholecystitis with gallbladder drainage tube in place . She was admitted now because her gastric feeding tube dislodged and some of her feeding went into her abdominal cavity. She was admitted and thought to be septic at the time of admission. Plan: 1. She will have dry ultrafiltration for today and tomorrow. 2. Continue Epogen 3. Patient to have percutaneous endoscopic gastric tube placed today. 4. Agree with broad-spectrum antibiotics 5. I did speak to her regarding her current condition and advanced directives. I asked him to think about whether he would want her reintubated should that be needed . She had originally voiced the opinion that she did not want to be intubated. However this may have changed. She has had a rather stormy medical course over the last 4 months. She has shown very little improvement neurologically . I told the that we would continue everything else that we are doing including dialysis . Problems: Consultation Date/Type/Reason Admit Date/Time Jan 16, 2017 at 22:45 Initial Consult Date 01/18/17 Type of Consultation: Pulmonary Referring Provider: SHAMA LOPEZ MD 24 HR Interval Summary Free Text/Dictation She is awake and says she feels better today. She is still quite weak with very short answers to questions. She denies pain. Constitutional: no complaints Exam/Review of Systems Vital Signs Vitals Vital Signs Date Time Temp Pulse Resp B/P Pulse Ox O2 Delivery O2 Flow Rate FiO2 01/24/17 08:07 113 01/24/17 07:59 98.4 19 107/56 94 01/24/17 07:33 Nasal Cannula 2.0 Intake and Output 01/23/17 01/23/17 01/24/17 15:00 23:00 07:00 Intake Total 60 ml 650 ml 480 ml Output Total 0 ml 300 ml 400 ml Balance 60 ml 350 ml 80 ml Exam Constitutional: alert, frail, obese, oriented Respiratory: clear to auscultation, diminished breath sounds Cardiovascular: edema, regular rate and rhythm Gastrointestinal: non-tender, soft Extremities: edema Results Result Diagram: 01/24/17 0624 01/24/17 0619 Results 24 hrs Laboratory Tests Test 01/23/17 12:29 01/23/17 16:50 01/23/17 18:30 01/23/17 22:22 Bedside Glucose 177 203 185 157 Test 01/24/17 01:59 01/24/17 06:19 01/24/17 06:24 01/24/17 06:58 Bedside Glucose 147 177 Sodium Level 140 Potassium Level 3.7 Chloride Level 101 Carbon Dioxide Level 28 Anion Gap 15 Blood Urea Nitrogen 27 H Creatinine 0.98 Glucose Level 164 Calcium Level 8.1 L Total Bilirubin 0.0 L Direct Bilirubin 0.00 Indirect Bilirubin 0.0 Aspartate Amino Transf (AST/SGOT) 32 Alanine Aminotransferase (ALT/SGPT) 26 Alkaline Phosphatase 227 H Total Protein 5.5 L Albumin 2.2 L Globulin 3.30 H Albumin/Globulin Ratio 0.66 White Blood Count 11.5 H Red Blood Count 3.08 L Hemoglobin 8.5 L Hematocrit 28.7 L Mean Corpuscular Volume 93.2 Mean Corpuscular Hemoglobin 27.6 L Mean Corpuscular Hemoglobin Concent 29.6 L Red Cell Distribution Width 19.3 H Platelet Count 256 Mean Platelet Volume 9.6 Neutrophils % 75.1 Lymphocytes % 11.1 L Monocytes % 5.0 Eosinophils % 1.2 Basophils % 0.3 Neutrophils # 8.7 H Lymphocytes # 1.3 Monocytes # 0.6 Eosinophils # 0.1 Basophils # 0.0 Nucleated Red Blood Cells # 0.1 H Medications Medications Current Medications Metoprolol Tartrate (Lopressor) 2.5 mg BID IV Last administered on 01/23/17t 22 :15; Admin Dose 2.5 MG; Start 01/17/17 at 09:00 Miscellaneous Information 1 ea NOTE XX ; Start 01/16/17 at 23:30 Glucose (Glutose) 15 gm Q15M PRN PO DECREASED GLUCOSE; Start 01/16/17 at 23:30 Glucose (Glutose) 22.5 gm Q15M PRN PO DECREASED GLUCOSE; Start 01/16/17 at 23: 30 Dextrose (D50w Syringe) 25 ml Q15M PRN IV DECREASED GLUCOSE Last administered on 01/22/17 20:54; Admin Dose 25 ML; Start 01/16/17 at 23:30 Dextrose (D50w Syringe) 50 ml Q15M PRN IV DECREASED GLUCOSE; Start 01/16/17 at 23:30 Glucagon (Glucagen) 1 mg Q15M PRN IM DECREASED GLUCOSE; Start 01/16/17 at 23:30 Glucose (Glutose) 15 gm Q15M PRN BUCCAL DECREASED GLUCOSE; Start 01/16/17 at 23 :30 Latanoprost (Xalatan) 1 drop HS BOTH EYES Last administered on 01/23/17 22:16 ; Admin Dose 1 DROP; Start 01/17/17 at 21:00 Epoetin Raj (Epogen (Esrd)) 10,000 units TuThSa@17 SC Last administered on 16:53; Admin Dose 10,000 UNITS; Start 01/18/17 at 17:00 Ondansetron HCl (Zofran Inj) 4 mg Q6H PRN IV NAUSEA AND/OR VOMITING; Start at 00:30 Collagenase (Santyl) 1 applic DAILY TOP Last administered on 01/23/17 09:00; Admin Dose 1 APPLIC; Start 01/18/17 at 16:00 Collagenase 1 applic 1 applic PRN PRN TOP WOUND CARE; Start 01/18/17 at 15:00 Meropenem/Sodium Chloride (Merrem 500mg/50 ml(Pmx)) 50 ml @ 100 mls/hr DAILY@ 20 IVPB Last administered on 01/23/17 22:20; Admin Dose 100 MLS/HR; Start at 20:00 Enoxaparin Sodium (Lovenox) 30 mg DAILY SC Last administered on 01/23/17 09:00 ; Admin Dose 30 MG; Start 01/20/17 at 09:00 Insulin Glargine (Lantus) 20 unit DAILY@08 SC Last administered on 01/23/17 07 :58; Admin Dose 20 UNIT; Start 01/21/17 at 08:00 Bisacodyl (Dulcolax Supp) 10 mg BID PRN PA CONSTIPATION; Start 01/20/17 at 17: 00 Sodium Biphosphate/ Sodium Phosphate (Fleet Enema) 133 ml BID PRN PA CONSTIPATION; Start 01/20/17 at 17:00 Neomycin/ Polymyxin/ Bacitracin 1 applic 1 applic TID TOP Last administered on 01/23/17 22:17; Admin Dose 1 APPLIC; Start 01/21/17 at 21:00 Vancomycin HCl (Vancocin) 250 ml @ 125 mls/hr Q96H IVPB Last administered on 22:16; Admin Dose 125 MLS/HR; Start 01/22/17 at 22:00 Morphine Sulfate (morphine) 2 mg Q4H PRN IV PAIN Last administered on 02:02; Admin Dose 2 MG; Start 01/22/17 at 16:00 Acetaminophen (Tylenol Tab) 650 mg Q6H PRN PO PAIN AND OR ELEVATED TEMP Last administered on 01/23/17 19:23; Admin Dose 650 MG; Start 01/23/17 at 19:30 DAMIR MARTINEZ MD Jan 24, 2017 09:05
[2017-01-24] MEDS: NEOMYC/POLYMYX/BACIT 30 GM OINT TOP SCH ×3 (09:13→22:08)
[2017-01-24] MEDS: INSULIN GLARGINE [LANtus] 3 ML PEN SC SCH (09:26)
[2017-01-24] MEDS: COLLAGENASE 30 GM TUBE TOP SCH (09:27)
[2017-01-24] MEDS: ENOXAPARIN 30 MG/0.3 ML SYG SC SCH (09:27)
--- NOTE | 2017-01-24 09:42 | RADRPT ---
Echocardiogram Report Patient Name: JANIA TRUONG Gender: Female Date: 1945 Study Date: 19-Jan-2017 Mortgage Specialist: Samantha [facility] Location: 530 Ref. Physician: FREEMAN LIMA Quality: Adequate Procedures: Transthoracic echocardiogram with complete 2D, M-Mode, and doppler examination. Indications: CAD, Pre-op. 2D/M Mode Doppler Measurement Value Normal Ranges Measurement Value Normal Ranges LVIDd 2D 3.5 3.5 - 5.6 cm AV Peak Jose M 1.5 m/sec LVIDs 2D 3.0 2.1 - 4.1 cm AV Peak PG 9.0 mmHg FS 2D 13.7 % LVOT Peak Jose M 1.0 m/sec LVPWd 2D 1.3 0.6 - 1.1 cm LVOT Peak PG 4.0 mmHg IVSd 2D 1.3 0.6 - 1.1 cm MV E Peak Jose M 1.2 m/sec IVS/LVPW 2D 1.0 MV A Peak Jose M 1.3 m/sec AoR Diam 2D 2.0 2.0 - 3.7 cm MV E/A 0.9 LA/Ao 2D 1 0 - 1 MV Decel Time 222 msec EDV 2D 42.9 cm3 MV E/A 0.9 ESV 2D 27.5 cm3 TR Peak Jose M 3.0 m/sec LA Dimen 2D 2.9 2.3 - 4.0 cm TR Peak PG 36.0 mmHg RVSP 44.0 mmHg Findings Left Ventricle: Normal left ventricular systolic function. Normal left ventricular cavity size. Mild concentric left ventricular hypertrophy. Ejection fraction is visually estimated at 55 %. Abnormal Diastolic Function. Right Ventricle: Normal right ventricular size. Normal right ventricular systolic function. Left Atrium: The left atrium is normal in size. Right Atrium: The right atrium is normal in size. Mitral Valve: Mitral valve leaflets appear mildly thickened. Mild mitral annular calcification. Trace mitral regurgitation. Aortic Valve: Normal appearance of the aortic valve. No significant aortic stenosis or insufficiency. Tricuspid Valve: Normal appearance of the tricuspid valve. Estimated peak PA systolic pressure 44 mmHg. There is mild tricuspid regurgitation. Pulmonic Valve: Pulmonic valve not well visualized. There is trace pulmonic regurgitation. Pericardium: Normal pericardium with no significant pericardial effusion. Aorta: Normal aortic root. IVC: Normal size and poor respiratory collapse consistent with elevated right atrial pressure. Conclusions Normal left ventricular systolic function. Normal left ventricular cavity size. Mild concentric left ventricular hypertrophy. Ejection fraction is visually estimated at 55 %. Abnormal Diastolic Function. Normal right ventricular size. Normal right ventricular systolic function. Mitral valve leaflets appear mildly thickened. Mild mitral annular calcification. Trace mitral regurgitation. Normal appearance of the aortic valve. No significant aortic stenosis or insufficiency. Normal appearance of the tricuspid valve. Estimated peak PA systolic pressure 44 mmHg. There is mild tricuspid regurgitation. Pulmonic valve not well visualized. There is trace pulmonic regurgitation. Normal size and poor respiratory collapse consistent with elevated right atrial pressure. Normal pericardium with no significant pericardial effusion. Electronically Signed By: Freeman Lima 24-Jan-2017 09:41:34 -0700 Patient Name: JANIA TRUONG Study Date: 19-Jan-2017 [id number]
[2017-01-24] MEDS: ALBUMIN HUMAN 25% 100 ML IV ONE ×2 (11:21→12:26)
[2017-01-24] MEDS: HEPARIN 1000 UNITS/ML 10 ML INJ CATHETER ONE ×2 (11:21→11:30)
--- NOTE | 2017-01-24 11:48 | CONS ---
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 g-tube culture the wound site and continue with vanco/zosyn 01/18 - g-tube wound cx is NGTD 01/19 - g-tube wound cx has scant CoNS, doubt this is significant 01/20 - await decision regarding g-tube re-insertion 01/21 - pt is too lethargic for swallow eval to be done, re-attempt today 01/22 - pt to get new g-tube placed today 01/23 - unable to get g-tube yesterday, re-scheduled for today 01/24 - pt got G-tube and TF restarted no abd pain 2) choleycystitis pt has had a drain in place for this until she is ready for surgery will cx the fluid that is present 01/18 - AMBROSE drain cx has growth but too young continue with vanco/zosyn CT showed distending GB and gallstones but no fluid around the GB 01/19 - AMBROSE drain is growing regular klebsiella and MRSA due to kleb +ESBL in urine will change zosyn to merrem, to continue with vanco contact isolation ordered 01/20 - continue with vanco/merrem at present 01/22 - WBC almost back to normal day 01/13 of vanco and day 4/ of merrem likely will change to po augmentin/bactrim in 3 days if WBC is ok 01/23 - no new recs 01/24 - continue with vanco/merrem thru 01/25 then change to po augmentin/bactrim 3) recent STEMI and hx of CABG 4) renal failure pt has very good creatinine but is still receiving dialysis she also has distended bladder by CT will get u/a and urine cx, nurse to straight cath vanco/zosyn should cover 5) sacral ulcer unable to see nurse to get picture 01/18 - no sign for infection according to notes 6) UTI 01/18 - pus is coming out from guevara urine cx is growing GNR continue with zosyn as WBC is decreasing 01/19 - urine cx has kleb +ESBL change zosyn to merrem merrem to be given after HD on dialysis days 01/20 - no change 01/21 - pt's urine output is picking up 01/22 - day 4/7 of merrem 01/24 - day 6 of merrem repeat u/a and urine cx, if neg can consider stopping isolation 7) R pleural effusion with possible consolidation 01/18 - no phlegm production on vanco/zosyn at present will order nasal for MRSA pt to possibly get R thorancentesis 01/19 - pleural fluid does not appear to be infected with low WBC count and less than 50% PMN's will check LDH in serum to verify if exudative or transudative 01/20 - LDH results consistent with exudative process, cx remain NGTD 01/21 - pleural fluid cx remains NGTD 01/22 - pleural cx was neg 8) 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 01/20 - no sign of cellulitis around these toes 01/22 - stable Problems: Consultation Date/Type/Reason Admit Date/Time Jan 16, 2017 at 22:45 Initial Consult Date 01/17/17 Type of Consultation: ID Referring Provider: SHAMA LOPEZ MD 24 HR Interval Summary Free Text/Dictation pt more awake and easily responds to simple questions mouth is dry no N, V, D TF have been re-started Exam/Review of Systems Vital Signs Vitals Vital Signs Date Time Temp Pulse Resp B/P Pulse Ox O2 Delivery O2 Flow Rate FiO2 01/24/17 11:26 98.5 102 18 105/53 95 01/24/17 07:33 Nasal Cannula 2.0 Intake and Output 01/23/17 01/23/17 01/24/17 15:00 23:00 07:00 Intake Total 60 ml 650 ml 480 ml Output Total 0 ml 300 ml 400 ml Balance 60 ml 350 ml 80 ml Exam Constitutional: alert Head: normocephalic ENMT: other (dried secretions of top of tongue) Respiratory: clear to auscultation Cardiovascular: regular rate and rhythm Gastrointestinal: non-tender, soft Results Result Diagram: 01/24/17 0624 01/24/17 0619 Results 24 hrs Laboratory Tests Test 01/23/17 12:29 01/23/17 16:50 01/23/17 18:30 01/23/17 22:22 Bedside Glucose 177 203 185 157 Test 01/24/17 01:59 01/24/17 06:19 01/24/17 06:24 01/24/17 06:58 Bedside Glucose 147 177 Sodium Level 140 Potassium Level 3.7 Chloride Level 101 Carbon Dioxide Level 28 Anion Gap 15 Blood Urea Nitrogen 27 H Creatinine 0.98 Glucose Level 164 Calcium Level 8.1 L Total Bilirubin 0.0 L Direct Bilirubin 0.00 Indirect Bilirubin 0.0 Aspartate Amino Transf (AST/SGOT) 32 Alanine Aminotransferase (ALT/SGPT) 26 Alkaline Phosphatase 227 H Total Protein 5.5 L Albumin 2.2 L Globulin 3.30 H Albumin/Globulin Ratio 0.66 White Blood Count 11.5 H Red Blood Count 3.08 L Hemoglobin 8.5 L Hematocrit 28.7 L Mean Corpuscular Volume 93.2 Mean Corpuscular Hemoglobin 27.6 L Mean Corpuscular Hemoglobin Concent 29.6 L Red Cell Distribution Width 19.3 H Platelet Count 256 Mean Platelet Volume 9.6 Neutrophils % 75.1 Lymphocytes % 11.1 L Monocytes % 5.0 Eosinophils % 1.2 Basophils % 0.3 Neutrophils # 8.7 H Lymphocytes # 1.3 Monocytes # 0.6 Eosinophils # 0.1 Basophils # 0.0 Nucleated Red Blood Cells # 0.1 H Test 01/24/17 09:19 Bedside Glucose 197 Medications Medications Current Medications Metoprolol Tartrate (Lopressor) 2.5 mg BID IV Last administered on 01/23/17 22 :15; Admin Dose 2.5 MG; Start 01/17/17 at 09:00 Miscellaneous Information 1 ea NOTE XX ; Start 01/16/17 at 23:30 Glucose (Glutose) 15 gm Q15M PRN PO DECREASED GLUCOSE; Start 01/16/17 at 23:30 Glucose (Glutose) 22.5 gm Q15M PRN PO DECREASED GLUCOSE; Start 01/16/17 at 23: 30 Dextrose (D50w Syringe) 25 ml Q15M PRN IV DECREASED GLUCOSE Last administered on 01/22/17 20:54; Admin Dose 25 ML; Start 01/16/17 at 23:30 Dextrose (D50w Syringe) 50 ml Q15M PRN IV DECREASED GLUCOSE; Start 01/16/17 at 23:30 Glucagon (Glucagen) 1 mg Q15M PRN IM DECREASED GLUCOSE; Start 01/16/17 at 23:30 Glucose (Glutose) 15 gm Q15M PRN BUCCAL DECREASED GLUCOSE; Start 01/16/17 at 23 :30 Latanoprost (Xalatan) 1 drop HS BOTH EYES Last administered on 01/23/17 22:16 ; Admin Dose 1 DROP; Start 01/17/17 at 21:00 Epoetin Raj (Epogen (Esrd)) 10,000 units TuThSa@17 SC Last administered on 16:53; Admin Dose 10,000 UNITS; Start 01/18/17 at 17:00 Ondansetron HCl (Zofran Inj) 4 mg Q6H PRN IV NAUSEA AND/OR VOMITING; Start at 00:30 Collagenase (Santyl) 1 applic DAILY TOP Last administered on 01/24/17 09:27; Admin Dose 1 APPLIC; Start 01/18/17 at 16:00 Collagenase 1 applic 1 applic PRN PRN TOP WOUND CARE; Start 01/18/17 at 15:00 Meropenem/Sodium Chloride (Merrem 500mg/50 ml(Pmx)) 50 ml @ 100 mls/hr DAILY@ 20 IVPB Last administered on 01/23/17 22:20; Admin Dose 100 MLS/HR; Start at 20:00 Enoxaparin Sodium (Lovenox) 30 mg DAILY SC Last administered on 01/24/17 09:27 ; Admin Dose 30 MG; Start 01/20/17 at 09:00 Insulin Glargine (Lantus) 20 unit DAILY@08 SC Last administered on 01/24/17 09 :26; Admin Dose 20 UNIT; Start 01/21/17 at 08:00 Bisacodyl (Dulcolax Supp) 10 mg BID PRN CO CONSTIPATION; Start 01/20/17 at 17: 00 Sodium Biphosphate/ Sodium Phosphate (Fleet Enema) 133 ml BID PRN CO CONSTIPATION; Start 01/20/17 at 17:00 Neomycin/ Polymyxin/ Bacitracin 1 applic 1 applic TID TOP Last administered on 01/24/17 09:13; Admin Dose 1 APPLIC; Start 01/21/17 at 21:00 Vancomycin HCl (Vancocin) 250 ml @ 125 mls/hr Q96H IVPB Last administered on 22:16; Admin Dose 125 MLS/HR; Start 01/22/17 at 22:00 Morphine Sulfate (morphine) 2 mg Q4H PRN IV PAIN Last administered on 02:02; Admin Dose 2 MG; Start 01/22/17 at 16:00 Acetaminophen 650 mg 650 mg Q6H PRN PO PAIN AND OR ELEVATED TEMP Last administered on 01/23/17 19:23; Admin Dose 650 MG; Start 01/23/17 at 19:30 Albumin Human (Albumin Human 25%) 100 ml @ 100 mls/hr ONCE ONCE IV ; Start at 11:00; Stop 01/24/17 at 11:59 TR GOODEN MD Jan 24, 2017 11:47
--- NOTE | 2017-01-24 15:40 | PN ---
Date/Time of Note Date/Time of Note DATE: 01/24/17 TIME: 15:35 Assessment/Plan Lines/Catheters IV Catheter Type (from [facility]): PICC Line Rivas in Place (from [facility]): Yes Assessment/Plan Assessment/Plan [facility] Progress Note Date of Service: 01/24/17 Today's Impression & Plan: Overall has remained stable. Gallbladder: No new issues. Controlled with perc myron drain. 1. Plan is for laparoscopic cholecystectomy once the patient is medically stabilized (would likely take several weeks to months to accomplish). No further interventions needed at this time. 2, Will need drain care and education for patient and family as well as care home staff. Very important to flush the drain with 10 cc of normal saline once a day and record daily outputs. Feeding: Patient's new feeding tube is in place and in fact, feedings have been resumed (much appreciated Dr. Helm's great work). Abdomen appears to be improving on the left side with mild to no discomfort. No indication for surgical intervention for this at the moment. May not be able to do a formal swallow test due to lethargy. 1. Cont feeding through PEG per Dr. Helm Overall, patient is doing reasonably well and improving given the clinical picture and the extent of her problems. Urinary tract infection treated for E. coli. Her mood appears to be depressed and is thought to be appropriate given clinical picture and situational and slightly improved. Would benefit from occasional review from a medication standpoint. Despite her weight, the patient is likely malnourished and very important that the question of feeding is addressed on an ongoing basis. She is also extremely debilitated from a physical standpoint and very important for physical therapy to continue aggressively addressing this. With above assessment, I've recommended the following for today: 1. Keep in-house 2. Physical therapy involvement 3. Check lab and correct electrolytes as needed 4. Targeted antimicrobial therapy based on culture results 5. Monitor for signs of sepsis since she is at high risk (elevated and rising white blood cell count) Thank you again for allowing us to participate in the care of this very pleasant lady and her wonderful family. If there are any questions, please feel free to contact me at [phone]. Please note that, given the extensive number of diagnoses or management options , the moderate to extensive amount and/or complexity of data needed to be reviewed, and I risk of complications and/or morbidity or mortality, this qualifies as high complexity type of decision-making. Disclaimer: Inadvertent spelling and grammatical errors are likely due to EHR/ dictation software use and do not reflect on the quality of delivered patient care. Also, please note that the electronic time recorded on this node does not necessarily reflect the actual time of the visit. Updated Clinical Summary: A very pleasant 71-year-old lady with multiple comorbid issues including BMI of 35.6 as well as what has been in the hospital since 09/2016 being found unresponsive and multiple issues including congestive heart failure, acute renal failure due to acute tubular necrosis requiring dialysis, urinary tract infection with bacteremia and multiple other issues, who was found to have possible signs of acute cholecystitis on recent imaging. D/c to [facility] ([place] ) 12/25/16. Readmitted to [facility] for abdominal wall pain on the left side on 01/16/2017. Urinary tract infection treated for E. coli. Thoracentesis with removal of approximately 1 L of fluid from her chest 2016. Percutaneous gallbladder drain exchange 01/18/2017. Feeding tube replaced 01/23/2017 by GI (Dr. Helm). COMORBIDITIES: 1. BMI of 35.6. 2. Acute renal failure (ATN), on maintenance hemodialysis (Friday, , Friday). 3. Congestive heart failure. 4. Anemia. 5. Hypocalcemia. 6. Hypoalbuminemia and malnutrition. 7. Peripheral vascular disease with gangrene of toes of both feet. 8. Recent history of respiratory failure. 9. History of dysphagia requiring PEG placement and feedings. 10. Diabetes mellitus. 11. Leukocytosis from various sources. 12. Funguria with Erica glabrata and Erica albicans of the urine. 13. Escherichia coli and Enterococcus urinary tract infection 10/29/2016. 14. Escherichia coli bacteremia 12/02/2016 (x2 cultures). 15. Repeat culture of the urine 12/02/2016 with E. coli, enterococcus species and Klebsiella pneumoniae, extended-spectrum beta-lactamase. 16. Repeat bacteremia 12/08/2016 with Escherichia coli. 17. Urine positive for Erica albicans 12/11/2016. 18. Clostridium difficile colitis negative on a few stool samples. 19. Bilateral pleural effusions. 20. 2 mm calcified granuloma in the right lower lobe. 21. CT scan of abdomen and pelvis 12/13/2016 showing large amount of pericholecystic fluid with distention of the gallbladder, which could be of acute cholecystitis. 22. Tumefaction sludge, poorly visualized gallstones or soft tissue masses are suspected within the lumen of the distended gallbladder. 23. Anasarca. 24. Status post splenectomy. 25. A 2.8 cm left parapelvic cyst and an adjacent 1.4 cm simple cyst lateral upper portion of the lower third left kidney noted. 26. Atherosclerotic vascular disease. 27. Osteoarthritis of the thoracic and lumbosacral spine. 28. History of acute ST elevation myocardial infarction, inferior wall, status post code STEMI with stent placement, as well as temporary pacer wire. 29. Hyperlipidemia. 30. Possible aspiration pneumonia. 31. S/p CT-guided percutaneous transhepatic cholecystostomy drain placement 06/22, [facility] 32. Feeding tube replaced 01/23/2017 by GI (Dr. Helm) at [facility]. Subjective: No major events or complaints other than above; no major abd pain; no reported major n/v/d; no sob or cp; + flatus; + BM; minimal activity. No new issues. Not able to stand on her own power. Objective: Vitals: See below Exam: GENERAL: On exam, the patient was laying in bed and appeared to be comfortable and in no acute distress. ABDOMEN: Soft, nontender and nondistended. There are no peritoneal signs or guarding. Perc GB drain with bilious output in the tubing. Minimal fluid in the accordion bag. PEG tube replaced on tube feeding running at 30 cc/h. SKIN: Skin appears to be pink and feels warm to touch. NEUROLOGIC: Patient is awake, alert, and follows commands appropriately. Exam/Review of Systems Vital Signs Vitals Vital Signs Date Time Temp Pulse Resp B/P Pulse Ox O2 Delivery O2 Flow Rate FiO2 01/24/17 13:46 100 2.0 01/24/17 13:46 94 18 Nasal Cannula 01/24/17 11:26 98.5 105/53 Intake and Output 01/23/17 01/23/17 01/24/17 15:00 23:00 07:00 Intake Total 60 ml 650 ml 480 ml Output Total 0 ml 300 ml 400 ml Balance 60 ml 350 ml 80 ml Results Result Diagram: 01/24/17 0624 01/24/17 0619 SHANA ROSARIO M.D. Jan 24, 2017 15:40
--- NOTE | 2017-01-24 17:03 | CONS ---
Date/Time of Note Date/Time of Note DATE: 01/24/17 TIME: 17:01 Consult Date/Type/Reason Admit Date/Time Jan 16, 2017 at 22:45 Initial Consult Date 01/18/17 Type of Consultation: Pulmonary Ordering Provider: SHAMA LOPEZ MD Subjective Patient appears a little better today. Objective Vital Signs Date Time Temp Pulse Resp B/P Pulse Ox O2 Delivery O2 Flow Rate FiO2 01/24/17 16:35 98 01/24/17 15:48 98.5 18 118/59 95 01/24/17 13:46 2.0 01/24/17 13:46 Nasal Cannula Intake and Output 01/23/17 01/23/17 01/24/17 15:00 23:00 07:00 Intake Total 60 ml 650 ml 480 ml Output Total 0 ml 300 ml 400 ml Balance 60 ml 350 ml 80 ml Exam GENERAL: Elderly lady comfortable at rest no acute distress VITAL SIGNS: per chart NECK: Supple. No JVD or lymphadenopathy. CARDIAC EXAM: S1, S2. No added sounds or murmurs. CHEST: clear bilaterally, No added sounds, rales or wheezes ABDOMEN: Soft, nontender. No guarding or rebound. EXTREMITIES: No cyanosis, clubbing or edema +2 NEUROLOGIC: Generalized weakness. Results/Medications Result Diagram: 01/24/17 0624 01/24/17 0619 Results 24 hrs Laboratory Tests Test 01/23/17 18:30 01/23/17 22:22 01/24/17 01:59 01/24/17 06:19 Bedside Glucose 185 157 147 Sodium Level 140 Potassium Level 3.7 Chloride Level 101 Carbon Dioxide Level 28 Anion Gap 15 Blood Urea Nitrogen 27 H Creatinine 0.98 Glucose Level 164 Calcium Level 8.1 L Total Bilirubin 0.0 L Direct Bilirubin 0.00 Indirect Bilirubin 0.0 Aspartate Amino Transf (AST/SGOT) 32 Alanine Aminotransferase (ALT/SGPT) 26 Alkaline Phosphatase 227 H Total Protein 5.5 L Albumin 2.2 L Globulin 3.30 H Albumin/Globulin Ratio 0.66 Test 01/24/17 06:24 01/24/17 06:58 01/24/17 09:19 01/24/17 12:26 White Blood Count 11.5 H Red Blood Count 3.08 L Hemoglobin 8.5 L Hematocrit 28.7 L Mean Corpuscular Volume 93.2 Mean Corpuscular Hemoglobin 27.6 L Mean Corpuscular Hemoglobin Concent 29.6 L Red Cell Distribution Width 19.3 H Platelet Count 256 Mean Platelet Volume 9.6 Neutrophils % 75.1 Lymphocytes % 11.1 L Monocytes % 5.0 Eosinophils % 1.2 Basophils % 0.3 Neutrophils # 8.7 H Lymphocytes # 1.3 Monocytes # 0.6 Eosinophils # 0.1 Basophils # 0.0 Nucleated Red Blood Cells # 0.1 H Bedside Glucose 177 197 181 Test 01/24/17 16:54 Bedside Glucose 213 Medications Current Medications Metoprolol Tartrate (Lopressor) 2.5 mg BID IV Last administered on 01/23/17 22 :15; Admin Dose 2.5 MG; Start 01/17/17 at 09:00 Miscellaneous Information 1 ea NOTE XX ; Start 01/16/17 at 23:30 Glucose (Glutose) 15 gm Q15M PRN PO DECREASED GLUCOSE; Start 01/16/17 at 23:30 Glucose (Glutose) 22.5 gm Q15M PRN PO DECREASED GLUCOSE; Start 01/16/17 at 23: 30 Dextrose (D50w Syringe) 25 ml Q15M PRN IV DECREASED GLUCOSE Last administered on 01/22/17 20:54; Admin Dose 25 ML; Start 01/16/17 at 23:30 Dextrose (D50w Syringe) 50 ml Q15M PRN IV DECREASED GLUCOSE; Start 01/16/17 at 23:30 Glucagon (Glucagen) 1 mg Q15M PRN IM DECREASED GLUCOSE; Start 01/16/17 at 23:30 Glucose (Glutose) 15 gm Q15M PRN BUCCAL DECREASED GLUCOSE; Start 01/16/17 at 23 :30 Latanoprost (Xalatan) 1 drop HS BOTH EYES Last administered on 01/23/17 22:16 ; Admin Dose 1 DROP; Start 01/17/17 at 21:00 Epoetin Raj (Epogen (Esrd)) 10,000 units TuThSa@17 SC Last administered on 16:53; Admin Dose 10,000 UNITS; Start 01/18/17 at 17:00 Ondansetron HCl (Zofran Inj) 4 mg Q6H PRN IV NAUSEA AND/OR VOMITING; Start at 00:30 Collagenase (Santyl) 1 applic DAILY TOP Last administered on 01/24/17 09:27; Admin Dose 1 APPLIC; Start 01/18/17 at 16:00 Collagenase 1 applic 1 applic PRN PRN TOP WOUND CARE; Start 01/18/17 at 15:00 Meropenem/Sodium Chloride (Merrem 500mg/50 ml(Pmx)) 50 ml @ 100 mls/hr DAILY@ 20 IVPB Last administered on 01/23/17 22:20; Admin Dose 100 MLS/HR; Start at 20:00 Enoxaparin Sodium (Lovenox) 30 mg DAILY SC Last administered on 01/24/17 09:27 ; Admin Dose 30 MG; Start 01/20/17 at 09:00 Bisacodyl (Dulcolax Supp) 10 mg BID PRN HI CONSTIPATION; Start 01/20/17 at 17: 00 Sodium Biphosphate/ Sodium Phosphate (Fleet Enema) 133 ml BID PRN HI CONSTIPATION; Start 01/20/17 at 17:00 Neomycin/ Polymyxin/ Bacitracin 1 applic 1 applic TID TOP Last administered on 01/24/17 11:56; Admin Dose 1 APPLIC; Start 01/21/17 at 21:00 Vancomycin HCl (Vancocin) 250 ml @ 125 mls/hr Q96H IVPB Last administered on 22:16; Admin Dose 125 MLS/HR; Start 01/22/17 at 22:00 Morphine Sulfate (morphine) 2 mg Q4H PRN IV PAIN Last administered on 02:02; Admin Dose 2 MG; Start 01/22/17 at 16:00 Acetaminophen (Tylenol Tab) 650 mg Q6H PRN PO PAIN AND OR ELEVATED TEMP Last administered on 01/23/17 19:23; Admin Dose 650 MG; Start 01/23/17 at 19:30 Insulin Glargine (Lantus) 30 unit DAILY@08 SC ; Start 01/25/17 at 08:00 Ferrous Sulfate (Feosol Liquid Cup) 300 mg DAILY GTB ; Start 01/24/17 at 16:30 Assessment/Plan Chief Complaint/Hosp Course Switch assessment 1. Severe sepsis likely polymicrobial possible cholecystitis 2. Status post thoracentesis 800 cc pleural fluid suggestive of transudative process given low protein however elevated LDH noted. No malignant cells noted 3. End-stage renal failure on hemodialysis 4. History ST elevation [place] 5. Recent recurrent hypoxemic respiratory failure 6. Dysphagia G-tube has been dislodged. Patient has significant aspiration risk Plan 1. Broad-spectrum antibiotics per infectious diseases 2. Supplemental O2 as needed 3. Wound care 4. Pleural fluid studies noted 5. Aspiration precautions 6. Tube feeding as tolerated once G-tube is replaced 7. Surgical recommendations noted endoscopic cholecystectomy when stable. 8. Continues hemodialysis 3 times a week. Problems: ZANDRA ROBISON MD, [facility] Jan 24, 2017 17:03
--- NOTE | 2017-01-24 17:36 | PN ---
Date/Time of Note Date/Time of Note DATE: 01/24/17 TIME: 15:58 Assessment/Plan VTE Prophylaxis VTE Prophylaxis Intervention: LMWH Lines/Catheters IV Catheter Type (from Nrsg): PICC Line Central line still needed: Yes Urinary Cath still in place: Yes Reason Cath still needed: other (indicate) Assessment/Plan Assessment/Plan 01/[address], feedings started , belly pain improved, scheduled for dialysis 01/23 hgb by picc low again. will repeat draw by arm and if hgb<8.0 will transfuse. gtube rescheduled to today. 01/22 hgb redraw and is higher 8.9. dialysis done today, awaiting gtube reinsertion. 01/21 surg reports ok for gtube replace. gi reports will plan to place in am. cr increased 1.3 to 1.4. choking on apple sauce yesterday. 01/20 dialysis today, low sugar overall bad day today. 01/19gi- awaiting consult for replacement of g-tube. pt not appear to be able to take po nutrition appropriately. GI- g-tube dislodged causing cellulitis of the abd wall. 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 dr lopez notified. -lawrence changed and growing klebsiella---id following and changing abx. -id following and pt on vanco/zosyn---now changed due to klebsiella to vanco/ merrem . vanco merrem to be completed on 01/25, then will be on ngt augmentin/ bactrim. -gi replace g-tube 01/23. feeding restarted 01/24. renal- pt producing some urine. renal following and questioning if functionality has improved. fluid overloaded, being diuresed. dialysis restarting. epogen given. cr 1.0. pulm has a right lung infiltrate and mod effusion. pulm following tapped for 1 liter removed. abx changed. been stable dm- on sliding scale. no nutrition yet, sugar running low- lantis decreased. d5 running. since feeding has been restarted the accu checks to be expected to go up and will need to increase insulin appropriately. will increase lantus back to 30 u, which is still lower than usually taking as out pt. cv- h/o arrest, stent [place], cards following. b-danyel restarted. stable cholecystostomy- surg following and drain changed and growing klebsiella. on abx. doing well. anemia- discussed with renal if transfusion is necessary. pt given epogen. renal to watch. low in FE. awaiting it g-tube to be reinserted or other source for feeding. hgb better 8.2. today cbc drawn from picc and the hgb 7.4. redraw from arm and 8.9. doing fine. need to give fe once gtube in place. may start tube feeding by the nutrionist orders once cleared by GI. poor iv access. picc in place. Subjective 24 Hr Interval Summary Free Text/Dictation gtube running, pt much more awake and alert. speaking multiple words at a time. c/o increase gas with start of feedings. Exam/Review of Systems Vital Signs Vitals Vital Signs Date Time Temp Pulse Resp B/P Pulse Ox O2 Delivery O2 Flow Rate FiO2 01/24/17 15:48 98.5 100 18 118/59 95 01/24/17 13:46 2.0 01/24/17 13:46 Nasal Cannula Intake and Output 01/23/17 01/23/17 01/24/17 15:00 23:00 07:00 Intake Total 60 ml 650 ml 480 ml Output Total 0 ml 300 ml 400 ml Balance 60 ml 350 ml 80 ml Results Result Diagram: 01/24/17 0624 01/24/17 0619 Results 24 hrs Laboratory Tests Test 01/23/17 16:50 01/23/17 18:30 01/23/17 22:22 01/24/17 01:59 Bedside Glucose 203 185 157 147 Test 01/24/17 06:19 01/24/17 06:24 01/24/17 06:58 01/24/17 09:19 Sodium Level 140 Potassium Level 3.7 Chloride Level 101 Carbon Dioxide Level 28 Anion Gap 15 Blood Urea Nitrogen 27 H Creatinine 0.98 Glucose Level 164 Calcium Level 8.1 L Total Bilirubin 0.0 L Direct Bilirubin 0.00 Indirect Bilirubin 0.0 Aspartate Amino Transf (AST/SGOT) 32 Alanine Aminotransferase (ALT/SGPT) 26 Alkaline Phosphatase 227 H Total Protein 5.5 L Albumin 2.2 L Globulin 3.30 H Albumin/Globulin Ratio 0.66 White Blood Count 11.5 H Red Blood Count 3.08 L Hemoglobin 8.5 L Hematocrit 28.7 L Mean Corpuscular Volume 93.2 Mean Corpuscular Hemoglobin 27.6 L Mean Corpuscular Hemoglobin Concent 29.6 L Red Cell Distribution Width 19.3 H Platelet Count 256 Mean Platelet Volume 9.6 Neutrophils % 75.1 Lymphocytes % 11.1 L Monocytes % 5.0 Eosinophils % 1.2 Basophils % 0.3 Neutrophils # 8.7 H Lymphocytes # 1.3 Monocytes # 0.6 Eosinophils # 0.1 Basophils # 0.0 Nucleated Red Blood Cells # 0.1 H Bedside Glucose 177 197 Test 01/24/17 12:26 Bedside Glucose 181 Medications Medications Current Medications Metoprolol Tartrate (Lopressor) 2.5 mg BID IV Last administered on 01/23/17 22 :15; Admin Dose 2.5 MG; Start 01/17/17 at 09:00 Miscellaneous Information 1 ea NOTE XX ; Start 01/16/17 at 23:30 Glucose (Glutose) 15 gm Q15M PRN PO DECREASED GLUCOSE; Start 01/16/17 at 23:30 Glucose (Glutose) 22.5 gm Q15M PRN PO DECREASED GLUCOSE; Start 01/16/17 at 23: 30 Dextrose (D50w Syringe) 25 ml Q15M PRN IV DECREASED GLUCOSE Last administered on 01/22/17 20:54; Admin Dose 25 ML; Start 01/16/17 at 23:30 Dextrose (D50w Syringe) 50 ml Q15M PRN IV DECREASED GLUCOSE; Start 01/16/17 at 23:30 Glucagon (Glucagen) 1 mg Q15M PRN IM DECREASED GLUCOSE; Start 01/16/17 at 23:30 Glucose (Glutose) 15 gm Q15M PRN BUCCAL DECREASED GLUCOSE; Start 01/16/17 at 23 :30 Latanoprost (Xalatan) 1 drop HS BOTH EYES Last administered on 01/23/17 22:16 ; Admin Dose 1 DROP; Start 01/17/17 at 21:00 Epoetin Raj (Epogen (Esrd)) 10,000 units TuThSa@17 SC Last administered on 16:53; Admin Dose 10,000 UNITS; Start 01/18/17 at 17:00 Ondansetron HCl (Zofran Inj) 4 mg Q6H PRN IV NAUSEA AND/OR VOMITING; Start at 00:30 Collagenase (Santyl) 1 applic DAILY TOP Last administered on 01/24/17 09:27; Admin Dose 1 APPLIC; Start 01/18/17 at 16:00 Collagenase 1 applic 1 applic PRN PRN TOP WOUND CARE; Start 01/18/17 at 15:00 Meropenem/Sodium Chloride (Merrem 500mg/50 ml(Pmx)) 50 ml @ 100 mls/hr DAILY@ 20 IVPB Last administered on 01/23/17 22:20; Admin Dose 100 MLS/HR; Start at 20:00 Enoxaparin Sodium (Lovenox) 30 mg DAILY SC Last administered on 01/24/17 09:27 ; Admin Dose 30 MG; Start 01/20/17 at 09:00 Insulin Glargine (Lantus) 20 unit DAILY@08 SC Last administered on 01/24/17 09 :26; Admin Dose 20 UNIT; Start 01/21/17 at 08:00 Bisacodyl (Dulcolax Supp) 10 mg BID PRN [place] CONSTIPATION; Start 01/20/17 at 17: 00 Sodium Biphosphate/ Sodium Phosphate (Fleet Enema) 133 ml BID PRN [place] CONSTIPATION; Start 01/20/17 at 17:00 Neomycin/ Polymyxin/ Bacitracin 1 applic 1 applic TID TOP Last administered on 01/24/17 11:56; Admin Dose 1 APPLIC; Start 01/21/17 at 21:00 Vancomycin HCl (Vancocin) 250 ml @ 125 mls/hr Q96H IVPB Last administered on 22:16; Admin Dose 125 MLS/HR; Start 01/22/17 at 22:00 Morphine Sulfate (morphine) 2 mg Q4H PRN IV PAIN Last administered on 02:02; Admin Dose 2 MG; Start 01/22/17 at 16:00 Acetaminophen (Tylenol Tab) 650 mg Q6H PRN PO PAIN AND OR ELEVATED TEMP Last administered on 01/23/17 19:23; Admin Dose 650 MG; Start 01/23/17 at 19:30 SHAW SRINIVASAN MD Jan 24, 2017 16:09
[2017-01-24] MEDS: FERROUS SULFATE 60 MG/ML 5ML CUP GTB SCH (22:07)
[2017-01-24] MEDS: LATANOPROST 0.005% 2.5 ML OPH BOTH EYES SCH (22:07)
[2017-01-24] MEDS: MEROPENEM 500MG/50 ML (PMX) 50 ML IVPB SCH (22:07)
[2017-01-25] VITALS (18 sets, daily range): BP systolic 101–132; BP diastolic 46–62; PULSE 91–109; RESP 17–19
[2017-01-25] MEDS: LEVALBUTEROL (NEB) 0.31 MG/3 ML AMP HHN SCH ×4 (01:33→19:49)
[2017-01-25] MEDS ORDERED: ACCU-CHEK XX SCH (02:00)
[2017-01-25] MEDS: INSULIN ASPART [NOVOLOG] 3 ML PEN SC SCH ×3 (05:37→17:35)
[2017-01-25 08:00] LABS: CALCIUM 7.9 mg/dl (8.4-10.2); CREATININE 1.07 mg/dl (0.44-1.00); POTASSIUM 3.3 mmol/L (3.5-5.1)
[2017-01-25] MEDS: IPRATROPIUM (NEB) 0.5 MG/2.5 ML AMP HHN SCH ×3 (08:20→19:45)
[2017-01-25] MEDS: FERROUS SULFATE 60 MG/ML 5ML CUP GTB SCH (08:38)
[2017-01-25] MEDS: METOPROLOL 5 MG INJ IV SCH ×2 (08:38→20:44)
[2017-01-25] MEDS: INSULIN GLARGINE [LANtus] 3 ML PEN SC SCH (08:44)
[2017-01-25] MEDS: NEOMYC/POLYMYX/BACIT 30 GM OINT TOP SCH ×3 (08:44→20:44)
[2017-01-25] MEDS: COLLAGENASE 30 GM TUBE TOP SCH (08:45)
[2017-01-25 09:16] LABS: BASOPHILS % 0.3 % (0.0-2.0); EOSINOPHILS # 0.2 10^3/ul (0.0-0.5); EOSINOPHILS % 1.2 % (0.0-7.0); HEMATOCRIT 26.7 % (37.0-47.0); LYMPHOCYTES # 1.8 10^3/ul (0.8-2.9); LYMPHOCYTES % 11.9 % (15.0-51.0); MEAN CORPUSCULAR VOLUME 93.4 fl (82.0-101.0); MEAN PLATELET VOLUME 9.8 fl (7.4-10.4); MONOCYTE # 0.8 10^3/ul (0.3-0.9); MONOCYTES % 5.3 % (0.0-11.0); NEUTROPHIL # 11.3 10^3/ul (1.6-7.5); NEUTROPHILS % 76.8 % (39.0-77.0); PLATELET COUNT 180 10^3/UL (140-415); RED BLOOD COUNT 2.86 10^6/ul (4.20-5.40); RED CELL DISTRIBUTION WIDTH 19.1 % (11.5-14.5); WHITE BLOOD COUNT 14.7 10^3/ul (4.8-10.8)
[2017-01-25 09:23] LABS: POSITIVE DIFF @See below
--- NOTE | 2017-01-25 10:53 | CONS ---
Date/Time of Note Date/Time of Note DATE: 01/25/17 TIME: 10:51 Assessment/Plan Assessment/Plan Additional Assessment/Plan Assessment recommendations; 1. Patient admitted for recurrent sepsis with significant clinical improvement. 2. Status post right thoracentesis. 3. Atrial fibrillation. 4. Anemia. 5. Hypertension. 6. Diabetes. 7. History of respiratory failure a few months ago requiring prolonged mechanical ventilation. 8. Dysphagia. Status post G-tube placement. 9. Significant reduction in generalized edema. 10. End-stage renal disease, on hemodialysis. Continue current treatment. Patient responding well to current treatment regimen. Consultation Date/Type/Reason Admit Date/Time Jan 16, 2017 at 22:45 Initial Consult Date 01/18/17 Type of Consultation: Pulmonary Referring Provider: SHAMA LOPEZ MD 24 HR Interval Summary Free Text/Dictation Patient condition stable. Remains completely awake alert. Denies any shortness breath, chest pain, abdominal pain, nausea vomiting. General exam; elderly woman, awake alert currently in no distress. Exam/Review of Systems Vital Signs Vitals Vital Signs Date Time Temp Pulse Resp B/P Pulse Ox O2 Delivery O2 Flow Rate FiO2 01/25/17 09:00 Nasal Cannula 2.0 01/25/17 08:25 98.1 96 18 122/57 100 Intake and Output 01/24/17 01/24/17 01/25/17 15:00 23:00 07:00 Intake Total 500 ml 50 ml 500 ml Output Total 3500 ml 200 ml 200 ml Balance -3000 ml -150 ml 300 ml Exam HEENT exam; supple neck, no JVD. No lymphadenopathy. Midline trachea. No thyromegaly. Pharynx is clear. Pupils are midsize and reactive to light. Patient has fair dentition. Chest exam; diminished but clear breath sound. S1-S2 audible, no murmurs. Irregular rhythm. Abdomen exam; soft, nontender. No organomegaly. Bowel sounds audible. G-tube in place. Extremity exam; multiple ecchymosis are present in all 4 extremities. There is marked reduction in generalized edema. PENCIL INSPECTOR exam; patient is awake alert follows simple commands and moves all 4 extremities. Patient still exhibiting significant muscular weakness. Results Result Diagram: 01/25/17 0835 01/25/17 0630 Results 24 hrs Laboratory Tests Test 01/24/17 12:26 01/24/17 16:54 01/24/17 23:26 01/25/17 03:35 Bedside Glucose 181 213 188 131 Test 01/25/17 05:29 01/25/17 06:30 01/25/17 08:35 01/25/17 08:44 Bedside Glucose 152 130 Sodium Level 143 Potassium Level 3.3 L Chloride Level 103 Carbon Dioxide Level 28 Anion Gap 15 Blood Urea Nitrogen 32 H Creatinine 1.07 H Glucose Level 140 Calcium Level 7.9 L White Blood Count 14.7 #H Red Blood Count 2.86 L Hemoglobin 8.0 L Hematocrit 26.7 L Mean Corpuscular Volume 93.4 Mean Corpuscular Hemoglobin 28.0 L Mean Corpuscular Hemoglobin Concent 30.0 L Red Cell Distribution Width 19.1 H Platelet Count 180 # Mean Platelet Volume 9.8 Neutrophils % 76.8 Lymphocytes % 11.9 L Monocytes % 5.3 Eosinophils % 1.2 Basophils % 0.3 Nucleated Red Blood Cells % 0.0 Neutrophils # 11.3 H Lymphocytes # 1.8 Monocytes # 0.8 Eosinophils # 0.2 Basophils # 0.0 Nucleated Red Blood Cells # 0.0 Medications Medications Current Medications Metoprolol Tartrate (Lopressor) 2.5 mg BID IV Last administered on 01/24/17 22 :08; Admin Dose 2.5 MG; Start 01/17/17 at 09:00 Miscellaneous Information 1 ea NOTE XX ; Start 01/16/17 at 23:30 Glucose (Glutose) 15 gm Q15M PRN PO DECREASED GLUCOSE; Start 01/16/17 at 23:30 Glucose (Glutose) 22.5 gm Q15M PRN PO DECREASED GLUCOSE; Start 01/16/17 at 23: 30 Dextrose (D50w Syringe) 25 ml Q15M PRN IV DECREASED GLUCOSE Last administered on 01/22/17 20:54; Admin Dose 25 ML; Start 01/16/17 at 23:30 Dextrose (D50w Syringe) 50 ml Q15M PRN IV DECREASED GLUCOSE; Start 01/16/17 at 23:30 Glucagon (Glucagen) 1 mg Q15M PRN IM DECREASED GLUCOSE; Start 01/16/17 at 23:30 Glucose (Glutose) 15 gm Q15M PRN BUCCAL DECREASED GLUCOSE; Start 01/16/17 at 23 :30 Latanoprost (Xalatan) 1 drop HS BOTH EYES Last administered on 01/24/17 22:07 ; Admin Dose 1 DROP; Start 01/17/17 at 21:00 Epoetin Raj (Epogen (Esrd)) 10,000 units TuThSa@17 SC Last administered on 16:53; Admin Dose 10,000 UNITS; Start 01/18/17 at 17:00 Ondansetron HCl (Zofran Inj) 4 mg Q6H PRN IV NAUSEA AND/OR VOMITING; Start at 00:30 Collagenase (Santyl) 1 applic DAILY TOP Last administered on 01/25/17 08:45; Admin Dose 1 APPLIC; Start 01/18/17 at 16:00 Collagenase 1 applic 1 applic PRN PRN TOP WOUND CARE; Start 01/18/17 at 15:00 Meropenem/Sodium Chloride (Merrem 500mg/50 ml(Pmx)) 50 ml @ 100 mls/hr DAILY@ 20 IVPB Last administered on 01/24/17 22:07; Admin Dose 100 MLS/HR; Start at 20:00 Enoxaparin Sodium (Lovenox) 30 mg DAILY SC Last administered on 01/24/17 09:27 ; Admin Dose 30 MG; Start 01/20/17 at 09:00 Bisacodyl (Dulcolax Supp) 10 mg BID PRN [place] CONSTIPATION; Start 01/20/17 at 17: 00 Sodium Biphosphate/ Sodium Phosphate (Fleet Enema) 133 ml BID PRN [place] CONSTIPATION; Start 01/20/17 at 17:00 Neomycin/ Polymyxin/ Bacitracin 1 applic 1 applic TID TOP Last administered on 01/25/17 08:44; Admin Dose 1 APPLIC; Start 01/21/17 at 21:00 Vancomycin HCl (Vancocin) 250 ml @ 125 mls/hr Q96H IVPB Last administered on 22:16; Admin Dose 125 MLS/HR; Start 01/22/17 at 22:00 Morphine Sulfate (morphine) 2 mg Q4H PRN IV PAIN Last administered on 02:02; Admin Dose 2 MG; Start 01/22/17 at 16:00 Acetaminophen (Tylenol Tab) 650 mg Q6H PRN PO PAIN AND OR ELEVATED TEMP Last administered on 01/23/17 19:23; Admin Dose 650 MG; Start 01/23/17 at 19:30 Insulin Glargine (Lantus) 30 unit DAILY@08 SC Last administered on 01/25/17 08 :44; Admin Dose 30 UNIT; Start 01/25/17 at 08:00 Ferrous Sulfate (Feosol Liquid Cup) 300 mg DAILY GTB Last administered on 08:38; Admin Dose 300 MG; Start 01/24/17 at 16:30 Insulin Aspart (Novolog Insulin Pen) NOVOLOG *MODERATE* ALGORI... Q6 SC Last administered on 01/25/17 05:37; Admin Dose 2 UNIT; Start 01/25/17 at 00:00 ADIS CAMACHO Jan 25, 2017 10:53
[2017-01-25] MEDS: ENOXAPARIN 30 MG/0.3 ML SYG SC SCH (11:21)
--- NOTE | 2017-01-25 14:12 | CONS ---
Date/Time of Note Date/Time of Note DATE: 01/25/17 TIME: 14:06 Assessment/Plan Assessment/Plan Additional Assessment/Plan # Renal failure. S/p HD yesterday and today, with less edema. Plan next HD in 2 days # Dislodged G Tube has been replaced. # diabetes mellitus - controlled # anemia # acute cholecystitis with drainage tube in place, awaiting Lap Cholecystectomy. Consultation Date/Type/Reason Admit Date/Time Jan 16, 2017 at 22:45 Initial Consult Date 01/18/17 Type of Consultation: Renal Referring Provider: SHAMA LOPEZ MD 24 HR Interval Summary Free Text/Dictation Alert, denies any pain or discomfort. Exam/Review of Systems Vital Signs Vitals Vital Signs Date Time Temp Pulse Resp B/P Pulse Ox O2 Delivery O2 Flow Rate FiO2 01/25/17 12:23 91 01/25/17 12:05 18 01/25/17 11:15 97.8 110/51 97 01/25/17 09:00 Nasal Cannula 2.0 Intake and Output 01/24/17 01/24/17 01/25/17 15:00 23:00 07:00 Intake Total 500 ml 50 ml 500 ml Output Total 3500 ml 200 ml 200 ml Balance -3000 ml -150 ml 300 ml Exam Head: normocephalic Neck: supple Respiratory: clear to auscultation Cardiovascular: regular rate and rhythm Gastrointestinal: non-tender Extremities: No edema Results Result Diagram: 01/25/17 0835 01/25/17 0630 Results 24 hrs Laboratory Tests Test 01/24/17 16:54 01/24/17 23:26 01/25/17 03:35 01/25/17 05:29 Bedside Glucose 213 188 131 152 Test 01/25/17 06:30 01/25/17 08:35 01/25/17 08:44 01/25/17 11:58 Sodium Level 143 Potassium Level 3.3 L Chloride Level 103 Carbon Dioxide Level 28 Anion Gap 15 Blood Urea Nitrogen 32 H Creatinine 1.07 H Glucose Level 140 Calcium Level 7.9 L White Blood Count 14.7 #H Red Blood Count 2.86 L Hemoglobin 8.0 L Hematocrit 26.7 L Mean Corpuscular Volume 93.4 Mean Corpuscular Hemoglobin 28.0 L Mean Corpuscular Hemoglobin Concent 30.0 L Red Cell Distribution Width 19.1 H Platelet Count 180 # Mean Platelet Volume 9.8 Neutrophils % 76.8 Lymphocytes % 11.9 L Monocytes % 5.3 Eosinophils % 1.2 Basophils % 0.3 Nucleated Red Blood Cells % 0.0 Neutrophils # 11.3 H Lymphocytes # 1.8 Monocytes # 0.8 Eosinophils # 0.2 Basophils # 0.0 Nucleated Red Blood Cells # 0.0 Bedside Glucose 130 145 Medications Medications Current Medications Metoprolol Tartrate (Lopressor) 2.5 mg BID IV Last administered on 01/24/17 22 :08; Admin Dose 2.5 MG; Start 01/17/17 at 09:00 Miscellaneous Information 1 ea NOTE XX ; Start 01/16/17 at 23:30 Glucose (Glutose) 15 gm Q15M PRN PO DECREASED GLUCOSE; Start 01/16/17 at 23:30 Glucose (Glutose) 22.5 gm Q15M PRN PO DECREASED GLUCOSE; Start 01/16/17 at 23: 30 Dextrose (D50w Syringe) 25 ml Q15M PRN IV DECREASED GLUCOSE Last administered on 01/22/17 20:54; Admin Dose 25 ML; Start 01/16/17 at 23:30 Dextrose (D50w Syringe) 50 ml Q15M PRN IV DECREASED GLUCOSE; Start 01/16/17 at 23:30 Glucagon (Glucagen) 1 mg Q15M PRN IM DECREASED GLUCOSE; Start 01/16/17 at 23:30 Glucose (Glutose) 15 gm Q15M PRN BUCCAL DECREASED GLUCOSE; Start 01/16/17 at 23 :30 Latanoprost (Xalatan) 1 drop HS BOTH EYES Last administered on 01/24/17 22:07 ; Admin Dose 1 DROP; Start 01/17/17 at 21:00 Epoetin Raj (Epogen (Esrd)) 10,000 units TuThSa@17 SC Last administered on 16:53; Admin Dose 10,000 UNITS; Start 01/18/17 at 17:00 Ondansetron HCl (Zofran Inj) 4 mg Q6H PRN IV NAUSEA AND/OR VOMITING; Start at 00:30 Collagenase (Santyl) 1 applic DAILY TOP Last administered on 01/25/17 08:45; Admin Dose 1 APPLIC; Start 01/18/17 at 16:00 Collagenase 1 applic 1 applic PRN PRN TOP WOUND CARE; Start 01/18/17 at 15:00 Meropenem/Sodium Chloride (Merrem 500mg/50 ml(Pmx)) 50 ml @ 100 mls/hr DAILY@ 20 IVPB Last administered on 01/24/17 22:07; Admin Dose 100 MLS/HR; Start at 20:00 Enoxaparin Sodium (Lovenox) 30 mg DAILY SC Last administered on 01/25/17 11:21 ; Admin Dose 30 MG; Start 01/20/17 at 09:00 Bisacodyl (Dulcolax Supp) 10 mg BID PRN [place] CONSTIPATION; Start 01/20/17 at 17: 00 Sodium Biphosphate/ Sodium Phosphate (Fleet Enema) 133 ml BID PRN [place] CONSTIPATION; Start 01/20/17 at 17:00 Neomycin/ Polymyxin/ Bacitracin 1 applic 1 applic TID TOP Last administered on 01/25/17 12:00; Admin Dose 1 APPLIC; Start 01/21/17 at 21:00 Vancomycin HCl (Vancocin) 250 ml @ 125 mls/hr Q96H IVPB Last administered on 22:16; Admin Dose 125 MLS/HR; Start 01/22/17 at 22:00 Morphine Sulfate (morphine) 2 mg Q4H PRN IV PAIN Last administered on 02:02; Admin Dose 2 MG; Start 01/22/17 at 16:00 Acetaminophen (Tylenol Tab) 650 mg Q6H PRN PO PAIN AND OR ELEVATED TEMP Last administered on 01/23/17 19:23; Admin Dose 650 MG; Start 01/23/17 at 19:30 Insulin Glargine (Lantus) 30 unit DAILY@08 SC Last administered on 01/25/17 08 :44; Admin Dose 30 UNIT; Start 01/25/17 at 08:00 Ferrous Sulfate (Feosol Liquid Cup) 300 mg DAILY GTB Last administered on 08:38; Admin Dose 300 MG; Start 01/24/17 at 16:30 Insulin Aspart (Novolog Insulin Pen) NOVOLOG *MODERATE* ALGORI... Q6 SC Last administered on 01/25/17 12:02; Admin Dose 2 UNIT; Start 7/22/17 at 00:00 SHAW LY MD Jan 25, 2017 14:12
[2017-01-25] MEDS: EPOETIN 10000 UNITS/1 ML INJ (ESRD) SC SCH (17:30)
--- NOTE | 2017-01-25 18:25 | PN ---
Date/Time of Note Date/Time of Note DATE: 01/25/17 TIME: 18:25 Assessment/Plan VTE Prophylaxis VTE Prophylaxis Intervention: LMWH Lines/Catheters IV [facility] Type (from [facility]): PICC Line Central line still needed: Yes Urinary Cath still in place: Yes Reason Cath still needed: other (indicate) Assessment/Plan Problems: (1) Cholecystitis Status: Chronic Comment: s/p percutaneous myron drain. recheck liver enzymes since patient has rising wbc again. (2) ESRD (end stage renal disease) on dialysis Status: Chronic Comment: continue dialysis 3 times a week (3) Sepsis Status: Acute Comment: Most likely from abdominal wall cellulitis, patient is on antibiotics per ID guidance for positive wound cultures from drain and G tube site. s/p G tube replacement and getting feeding again but increasing wbc is of concern. (4) Gangrene Status: Chronic Comment: stable appearance of toes. (5) Cellulitis Status: Acute Comment: improving clinically on vanco and meropenem but now having recurrence of leukocytosis. May need reculture if persists. Qualifiers: Site of cellulitis: trunk Site of cellulitis of trunk: abdominal wall Qualified Code: L03.311 - Cellulitis of abdominal wall Subjective 24 Hr Interval Summary Subjective hx not possible: pt non-verbal Constitutional: no complaints Exam/Review of Systems Vital Signs Vitals Vital Signs Date Time Temp Pulse Resp B/P Pulse Ox O2 Delivery O2 Flow Rate FiO2 01/25/17 16:15 98 01/25/17 15:45 98.5 18 132/62 98 01/25/17 14:49 21 01/25/17 09:00 Nasal Cannula 2.0 Intake and Output 01/24/17 01/24/17 01/25/17 15:00 23:00 07:00 Intake Total 500 ml 50 ml 500 ml Output Total 3500 ml 200 ml 200 ml Balance -3000 ml -150 ml 300 ml Exam Constitutional: alert Head: normocephalic Eyes: nl conjunctiva, nl sclera ENMT: nl external ears & nose, nl lips & teeth Respiratory: clear to auscultation Cardiovascular: regular rate and rhythm Gastrointestinal: soft (mild tenderness diffusely), tender Extremities: other (Bilateral great toes gangrene at tips) Results Result Diagram: 01/25/17 0835 01/25/17 0630 Results 24 hrs Laboratory Tests Test 01/24/17 23:26 01/25/17 03:35 01/25/17 05:29 01/25/17 06:30 Bedside Glucose 188 131 152 Sodium Level 143 Potassium Level 3.3 L Chloride Level 103 Carbon Dioxide Level 28 Anion Gap 15 Blood Urea Nitrogen 32 H Creatinine 1.07 H Glucose Level 140 Calcium Level 7.9 L Test 01/25/17 08:35 01/25/17 08:44 01/25/17 11:58 01/25/17 17:30 White Blood Count 14.7 #H Red Blood Count 2.86 L Hemoglobin 8.0 L Hematocrit 26.7 L Mean Corpuscular Volume 93.4 Mean Corpuscular Hemoglobin 28.0 L Mean Corpuscular Hemoglobin Concent 30.0 L Red Cell Distribution Width 19.1 H Platelet Count 180 # Mean Platelet Volume 9.8 Neutrophils % 76.8 Lymphocytes % 11.9 L Monocytes % 5.3 Eosinophils % 1.2 Basophils % 0.3 Nucleated Red Blood Cells % 0.0 Neutrophils # 11.3 H Lymphocytes # 1.8 Monocytes # 0.8 Eosinophils # 0.2 Basophils # 0.0 Nucleated Red Blood Cells # 0.0 Bedside Glucose 130 145 145 Medications Medications Current Medications Metoprolol Tartrate (Lopressor) 2.5 mg BID IV Last administered on 01/24/17 22 :08; Admin Dose 2.5 MG; Start 01/17/17 at 09:00 Miscellaneous Information 1 ea NOTE XX ; Start 01/16/17 at 23:30 Glucose (Glutose) 15 gm Q15M PRN PO DECREASED GLUCOSE; Start 01/16/17 at 23:30 Glucose (Glutose) 22.5 gm Q15M PRN PO DECREASED GLUCOSE; Start 01/16/17 at 23: 30 Dextrose (D50w Syringe) 25 ml Q15M PRN IV DECREASED GLUCOSE Last administered on 01/22/17 20:54; Admin Dose 25 ML; Start 01/16/17 at 23:30 Dextrose (D50w Syringe) 50 ml Q15M PRN IV DECREASED GLUCOSE; Start 01/16/17 at 23:30 Glucagon (Glucagen) 1 mg Q15M PRN IM DECREASED GLUCOSE; Start 01/16/17 at 23:30 Glucose (Glutose) 15 gm Q15M PRN BUCCAL DECREASED GLUCOSE; Start 01/16/17 at 23 :30 Latanoprost (Xalatan) 1 drop HS BOTH EYES Last administered on 01/24/17 22:07 ; Admin Dose 1 DROP; Start 01/17/17 at 21:00 Epoetin Raj (Epogen (Esrd)) 10,000 units TuThSa@17 SC Last administered on 17:30; Admin Dose 10,000 UNITS; Start 01/18/17 at 17:00 Ondansetron HCl (Zofran Inj) 4 mg Q6H PRN IV NAUSEA AND/OR VOMITING; Start at 00:30 Collagenase (Santyl) 1 applic DAILY TOP Last administered on 01/25/17 08:45; Admin Dose 1 APPLIC; Start 01/18/17 at 16:00 Collagenase 1 applic 1 applic PRN PRN TOP WOUND CARE; Start 01/18/17 at 15:00 Meropenem/Sodium Chloride (Merrem 500mg/50 ml(Pmx)) 50 ml @ 100 mls/hr DAILY@ 20 IVPB Last administered on 01/24/17 22:07; Admin Dose 100 MLS/HR; Start at 20:00 Enoxaparin Sodium (Lovenox) 30 mg DAILY SC Last administered on 01/25/17 11:21 ; Admin Dose 30 MG; Start 01/20/17 at 09:00 Bisacodyl (Dulcolax Supp) 10 mg BID PRN [place] CONSTIPATION; Start 01/20/17 at 17: 00 Sodium Biphosphate/ Sodium Phosphate (Fleet Enema) 133 ml BID PRN [place] CONSTIPATION; Start 01/20/17 at 17:00 Neomycin/ Polymyxin/ Bacitracin 1 applic 1 applic TID TOP Last administered on 01/25/17 12:00; Admin Dose 1 APPLIC; Start 01/21/17 at 21:00 Vancomycin HCl (Vancocin) 250 ml @ 125 mls/hr Q96H IVPB Last administered on 22:16; Admin Dose 125 MLS/HR; Start 01/22/17 at 22:00 Morphine Sulfate (morphine) 2 mg Q4H PRN IV PAIN Last administered on 02:02; Admin Dose 2 MG; Start 01/22/17 at 16:00 Acetaminophen (Tylenol Tab) 650 mg Q6H PRN PO PAIN AND OR ELEVATED TEMP Last administered on 01/23/17 19:23; Admin Dose 650 MG; Start 01/23/17 at 19:30 Insulin Glargine (Lantus) 30 unit DAILY@08 SC Last administered on 01/25/17 08 :44; Admin Dose 30 UNIT; Start 01/25/17 at 08:00 Ferrous Sulfate (Feosol Liquid Cup) 300 mg DAILY GTB Last administered on 08:38; Admin Dose 300 MG; Start 01/24/17 at 16:30 Insulin Aspart (Novolog Insulin Pen) NOVOLOG *MODERATE* ALGORI... Q6 SC Last administered on 01/25/17 17:35; Admin Dose 2 UNIT; Start 01/25/17 at 00:00 SONALI WALKER MD Jan 25, 2017 18:25
[2017-01-25] MEDS: LATANOPROST 0.005% 2.5 ML OPH BOTH EYES SCH (20:42)
[2017-01-25] MEDS: MEROPENEM 500MG/50 ML (PMX) 50 ML IVPB SCH (20:42)
[2017-01-26] VITALS (14 sets, daily range): BP systolic 110–136; BP diastolic 57–67; PULSE 98–112; RESP 17–19
[2017-01-26] MEDS: IPRATROPIUM (NEB) 0.5 MG/2.5 ML AMP HHN SCH ×4 (01:46→20:00)
[2017-01-26] MEDS: LEVALBUTEROL (NEB) 0.31 MG/3 ML AMP HHN SCH ×4 (01:46→20:00)
[2017-01-26] MEDS: PANTOPRAZOLE 40 MG INJ IV SCH (05:28)
[2017-01-26] MEDS: INSULIN ASPART [NOVOLOG] 3 ML PEN SC SCH ×4 (05:28→18:00)
[2017-01-26 07:08] LABS: BASOPHILS % 0.2 % (0.0-2.0); EOSINOPHILS # 0.2 10^3/ul (0.0-0.5); EOSINOPHILS % 1.1 % (0.0-7.0); HEMATOCRIT 27.5 % (37.0-47.0); HEMOGLOBIN 8.3 g/dl (12.0-16.0); LYMPHOCYTES # 2.5 10^3/ul (0.8-2.9); LYMPHOCYTES % 16.2 % (15.0-51.0); MEAN CORPUSCULAR HEMOGLOBIN 27.7 pg (29.0-33.0); MEAN CORPUSCULAR HGB CONC 30.2 g/dl (32.0-37.0); MEAN CORPUSCULAR VOLUME 91.7 fl (82.0-101.0); MEAN PLATELET VOLUME 10.5 fl (7.4-10.4); MONOCYTE # 1.1 10^3/ul (0.3-0.9); MONOCYTES % 6.9 % (0.0-11.0); NEUTROPHIL # 11.1 10^3/ul (1.6-7.5); NEUTROPHILS % 72.1 % (39.0-77.0); NUCLEATED RED BLOOD CELLS% 0.3 /100WBC (0.0-0.0); PLATELET COUNT 191 10^3/UL (140-415); RED CELL DISTRIBUTION WIDTH 18.7 % (11.5-14.5); WHITE BLOOD COUNT 15.5 10^3/ul (4.8-10.8)
[2017-01-26 07:14] LABS: POSITIVE DIFF @See below
[2017-01-26 07:34] LABS: ALBUMIN 2.3 g/dl (3.3-4.9); ALBUMIN/GLOBULIN RATIO 0.69; CREATININE 1.11 mg/dl (0.44-1.00); POTASSIUM 3.7 mmol/L (3.5-5.1); TOTAL PROTEIN 5.6 g/dl (6.1-8.1)
[2017-01-26] MEDS: INSULIN GLARGINE [LANtus] 3 ML PEN SC SCH (08:54)
[2017-01-26] MEDS: ENOXAPARIN 30 MG/0.3 ML SYG SC SCH (09:00)
[2017-01-26] MEDS: FERROUS SULFATE 60 MG/ML 5ML CUP GTB SCH (09:07)
[2017-01-26] MEDS: NEOMYC/POLYMYX/BACIT 30 GM OINT TOP SCH ×3 (09:07→21:13)
[2017-01-26] MEDS: ACETAMINOPHEN 325 MG TAB PO PRN (09:08)
[2017-01-26] MEDS: COLLAGENASE 30 GM TUBE TOP SCH (09:08)
[2017-01-26] MEDS: METOPROLOL 5 MG INJ IV SCH ×2 (09:09→21:12)
--- NOTE | 2017-01-26 12:05 | PN ---
Date/Time of Note Date/Time of Note DATE: 01/26/17 TIME: 12:03 Assessment/Plan Lines/Catheters IV Catheter Type (from [facility]): PICC Line Rivas in Place (from [facility]): Yes Assessment/Plan Assessment/Plan [facility] Progress Note Date of Service: 01/26/17 Today's Impression & Plan: Overall has remained stable. Gallbladder: No new issues. Controlled with perc myron drain. 1. Plan is for laparoscopic cholecystectomy once the patient is medically stabilized (would likely take several weeks to months to accomplish). No further interventions needed at this time. 2, Will need drain care and education for patient and family as well as assisted staff. Very important to flush the drain with 10 cc of normal saline once a day and record daily outputs. Feeding: Patient's new feeding tube is in place and feedings ongoing. Abdomen appears to be improving on the left side with mild to no discomfort. No indication for surgical intervention for this at the moment. Will benefit from official swallowing test when medically able to. 1. Cont feeding through PEG per Dr. Helm Overall, patient is doing reasonably well and improving given the clinical picture and the extent of her problems. Urinary tract infection treated for E. coli. Her mood appears to be depressed and is thought to be appropriate given clinical picture and situational and slightly improved. Would benefit from occasional review from a medication standpoint. Despite her weight, the patient is likely malnourished and very important that the question of feeding is addressed on an ongoing basis. She is also extremely debilitated from a physical standpoint and very important for physical therapy to continue aggressively addressing this. With above assessment, I've recommended the following for today: 1. This will per primary team 2. Continued physical therapy involvement 3. Check lab and correct electrolytes as needed 4. Targeted antimicrobial therapy based on culture results 5. Monitor for signs of sepsis since she is at high risk (elevated and rising white blood cell count) Thank you again for allowing us to participate in the care of this very pleasant lady and her wonderful family. If there are any questions, please feel free to contact me at [phone]. Please note that, given the extensive number of diagnoses or management options , the moderate to extensive amount and/or complexity of data needed to be reviewed, and I risk of complications and/or morbidity or mortality, this qualifies as high complexity type of decision-making. Disclaimer: Inadvertent spelling and grammatical errors are likely due to EHR/ dictation software use and do not reflect on the quality of delivered patient care. Also, please note that the electronic time recorded on this node does not necessarily reflect the actual time of the visit. Updated Clinical Summary: A very pleasant 71-year-old lady with multiple comorbid issues including BMI of 35.6 as well as what has been in the hospital since 09/2016 being found unresponsive and multiple issues including congestive heart failure, acute renal failure due to acute tubular necrosis requiring dialysis, urinary tract infection with bacteremia and multiple other issues, who was found to have possible signs of acute cholecystitis on recent imaging. D/c to [facility] ([place] ) 12/25/16. Readmitted to [facility] for abdominal wall pain on the left side on 01/16/2017. Urinary tract infection treated for E. coli. Thoracentesis with removal of approximately 1 L of fluid from her chest 2016. Percutaneous gallbladder drain exchange 01/18/2017. Feeding tube replaced 01/23/2017 by GI (Dr. Helm). COMORBIDITIES: 1. BMI of 35.6. 2. Acute renal failure (ATN), on maintenance hemodialysis (Friday, , Friday). 3. Congestive heart failure. 4. Anemia. 5. Hypocalcemia. 6. Hypoalbuminemia and malnutrition. 7. Peripheral vascular disease with gangrene of toes of both feet. 8. Recent history of respiratory failure. 9. History of dysphagia requiring PEG placement and feedings. 10. Diabetes mellitus. 11. Leukocytosis from various sources. 12. Funguria with Erica glabrata and Erica albicans of the urine. 13. Escherichia coli and Enterococcus urinary tract infection 10/29/2016. 14. Escherichia coli bacteremia 12/02/2016 (x2 cultures). 15. Repeat culture of the urine 12/02/2016 with E. coli, enterococcus species and Klebsiella pneumoniae, extended-spectrum beta-lactamase. 16. Repeat bacteremia 12/08/2016 with Escherichia coli. 17. Urine positive for Erica albicans 12/11/2016. 18. Clostridium difficile colitis negative on a few stool samples. 19. Bilateral pleural effusions. 20. 2 mm calcified granuloma in the right lower lobe. 21. CT scan of abdomen and pelvis 12/13/2016 showing large amount of pericholecystic fluid with distention of the gallbladder, which could be of acute cholecystitis. 22. Tumefaction sludge, poorly visualized gallstones or soft tissue masses are suspected within the lumen of the distended gallbladder. 23. Anasarca. 24. Status post splenectomy. 25. A 2.8 cm left parapelvic cyst and an adjacent 1.4 cm simple cyst lateral upper portion of the lower third left kidney noted. 26. Atherosclerotic vascular disease. 27. Osteoarthritis of the thoracic and lumbosacral spine. 28. History of acute ST elevation myocardial infarction, inferior wall, status post code STEMI with stent placement, as well as temporary pacer wire. 29. Hyperlipidemia. 30. Possible aspiration pneumonia. 31. S/p CT-guided percutaneous transhepatic cholecystostomy drain placement 06/22, [facility] 32. Feeding tube replaced 01/23/2017 by GI (Dr. Helm) at [facility]. Subjective: No major events or complaints other than above; no major abd pain; no reported major n/v/d; no sob or cp; + flatus; + BM; minimal activity. No new issues. Not able to stand on her own power. Objective: Vitals: See below Exam: GENERAL: On exam, the patient was laying in bed and appeared to be comfortable and in no acute distress. ABDOMEN: Soft, nontender and nondistended. There are no peritoneal signs or guarding. Perc GB drain with bilious output in the tubing. Minimal fluid in the accordion bag. PEG tube dressing clean. SKIN: Skin appears to be pink and feels warm to touch. NEUROLOGIC: Patient is awake, alert, and follows commands appropriately. Exam/Review of Systems Vital Signs Vitals Vital Signs Date Time Temp Pulse Resp B/P Pulse Ox O2 Delivery O2 Flow Rate FiO2 01/26/17 11:35 98.6 103 18 115/57 95 01/26/17 08:10 Nasal Cannula 2.0 01/26/17 02:17 21 Intake and Output 01/25/17 01/25/17 01/26/17 15:00 23:00 07:00 Intake Total 500 ml 50 ml 600 ml Output Total 3500 ml 505 ml 200 ml Balance -3000 ml -455 ml 400 ml Results Result Diagram: 01/26/17 0610 01/26/17 0610 SHANA ROSARIO M.D. Jan 26, 2017 12:05
--- NOTE | 2017-01-26 14:31 | CONS ---
Date/Time of Note Date/Time of Note DATE: 01/26/17 TIME: 14:29 Assessment/Plan Assessment/Plan Additional Assessment/Plan # Renal failure. Dry UF planned for tomorrow # Dislodged G Tube has been replaced, tolerating TF # diabetes mellitus - controlled # anemia - stable # acute cholecystitis with drainage tube in place, awaiting Lap Cholecystectomy. Consultation Date/Type/Reason Admit Date/Time Jan 16, 2017 at 22:45 Initial Consult Date 01/18/17 Type of Consultation: Renal Referring Provider: SHAMA LOPEZ MD 24 HR Interval Summary Free Text/Dictation Alert. at bedside. Exam/Review of Systems Vital Signs Vitals Vital Signs Date Time Temp Pulse Resp B/P Pulse Ox O2 Delivery O2 Flow Rate FiO2 01/26/17 13:03 96 21 01/26/17 13:03 97 18 01/26/17 11:35 98.6 115/57 01/26/17 08:10 Nasal Cannula 2.0 Intake and Output 01/25/17 01/25/17 01/26/17 14:59 22:59 06:59 Intake Total 500 ml 50 ml 600 ml Output Total 3500 ml 505 ml 200 ml Balance -3000 ml -455 ml 400 ml Exam Constitutional: alert Head: normocephalic Neck: supple Respiratory: clear to auscultation Cardiovascular: regular rate and rhythm Gastrointestinal: soft Extremities: edema Results Result Diagram: 01/26/17 0610 01/26/17 0610 Results 24 hrs Laboratory Tests Test 01/25/17 17:30 01/26/17 00:09 01/26/17 05:26 01/26/17 06:10 Bedside Glucose 145 132 134 White Blood Count 15.5 H Red Blood Count 3.00 L Hemoglobin 8.3 L Hematocrit 27.5 L Mean Corpuscular Volume 91.7 Mean Corpuscular Hemoglobin 27.7 L Mean Corpuscular Hemoglobin Concent 30.2 L Red Cell Distribution Width 18.7 H Platelet Count 191 Mean Platelet Volume 10.5 H Neutrophils % 72.1 Lymphocytes % 16.2 Monocytes % 6.9 Eosinophils % 1.1 Basophils % 0.2 Nucleated Red Blood Cells % 0.3 H Neutrophils # 11.1 H Lymphocytes # 2.5 Monocytes # 1.1 H Eosinophils # 0.2 Basophils # 0.0 Nucleated Red Blood Cells # 0.0 Erythrocyte Sedimentation Rate 99 H Sodium Level 143 Potassium Level 3.7 Chloride Level 103 Carbon Dioxide Level 30 Anion Gap 14 Blood Urea Nitrogen 38 H Creatinine 1.11 H Glucose Level 122 Calcium Level 8.0 L Total Bilirubin 0.0 L Direct Bilirubin 0.00 Indirect Bilirubin 0.0 Aspartate Amino Transf (AST/SGOT) 30 Alanine Aminotransferase (ALT/SGPT) 27 Alkaline Phosphatase 195 H Total Protein 5.6 L Albumin 2.3 L Globulin 3.30 H Albumin/Globulin Ratio 0.69 Test 01/26/17 08:41 01/26/17 11:52 Bedside Glucose 146 155 Medications Medications Current Medications Metoprolol Tartrate (Lopressor) 2.5 mg BID IV Last administered on 01/26/17 09 :09; Admin Dose 2.5 MG; Start 01/17/17 at 09:00 Miscellaneous Information 1 ea NOTE XX ; Start 01/16/17 at 23:30 Glucose (Glutose) 15 gm Q15M PRN PO DECREASED GLUCOSE; Start 01/16/17 at 23:30 Glucose (Glutose) 22.5 gm Q15M PRN PO DECREASED GLUCOSE; Start 01/16/17 at 23: 30 Dextrose (D50w Syringe) 25 ml Q15M PRN IV DECREASED GLUCOSE Last administered on 01/22/17 20:54; Admin Dose 25 ML; Start 01/16/17 at 23:30 Dextrose (D50w Syringe) 50 ml Q15M PRN IV DECREASED GLUCOSE; Start 01/16/17 at 23:30 Glucagon (Glucagen) 1 mg Q15M PRN IM DECREASED GLUCOSE; Start 01/16/17 at 23:30 Glucose (Glutose) 15 gm Q15M PRN BUCCAL DECREASED GLUCOSE; Start 01/16/17 at 23 :30 Latanoprost (Xalatan) 1 drop HS BOTH EYES Last administered on 01/25/17 20:42 ; Admin Dose 1 DROP; Start 01/17/17 at 21:00 Epoetin Raj (Epogen (Esrd)) 10,000 units TuThSa@17 SC Last administered on 17:30; Admin Dose 10,000 UNITS; Start 01/18/17 at 17:00 Ondansetron HCl (Zofran Inj) 4 mg Q6H PRN IV NAUSEA AND/OR VOMITING; Start at 00:30 Collagenase (Santyl) 1 applic DAILY TOP Last administered on 01/26/17 09:08; Admin Dose 1 APPLIC; Start 01/18/17 at 16:00 Collagenase 1 applic 1 applic PRN PRN TOP WOUND CARE; Start 01/18/17 at 15:00 Meropenem/Sodium Chloride (Merrem 500mg/50 ml(Pmx)) 50 ml @ 100 mls/hr DAILY@ 20 IVPB Last administered on 01/25/17 20:42; Admin Dose 100 MLS/HR; Start at 20:00 Enoxaparin Sodium (Lovenox) 30 mg DAILY SC Last administered on 01/26/17 09:00 ; Admin Dose 30 MG; Start 01/20/17 at 09:00 Bisacodyl (Dulcolax Supp) 10 mg BID PRN [place] CONSTIPATION; Start 01/20/17 at 17: 00 Sodium Biphosphate/ Sodium Phosphate (Fleet Enema) 133 ml BID PRN [place] CONSTIPATION; Start 01/20/17 at 17:00 Neomycin/ Polymyxin/ Bacitracin 1 applic 1 applic TID TOP Last administered on 01/26/17 11:59; Admin Dose 1 APPLIC; Start 01/21/17 at 21:00 Vancomycin HCl (Vancocin) 250 ml @ 125 mls/hr Q96H IVPB Last administered on 22:16; Admin Dose 125 MLS/HR; Start 01/22/17 at 22:00 Morphine Sulfate (morphine) 2 mg Q4H PRN IV PAIN Last administered on 02:02; Admin Dose 2 MG; Start 01/22/17 at 16:00 Acetaminophen (Tylenol Tab) 650 mg Q6H PRN PO PAIN AND OR ELEVATED TEMP Last administered on 01/26/17 09:08; Admin Dose 650 MG; Start 01/23/17 at 19:30 Insulin Glargine (Lantus) 30 unit DAILY@08 SC Last administered on 01/26/17 08 :54; Admin Dose 30 UNIT; Start 01/25/17 at 08:00 Ferrous Sulfate (Feosol Liquid Cup) 300 mg DAILY GTB Last administered on 09:07; Admin Dose 300 MG; Start 01/24/17 at 16:30 Insulin Aspart (Novolog Insulin Pen) NOVOLOG *MODERATE* ALGORI... Q6 SC Last administered on 01/26/17 11:58; Admin Dose 2 UNIT; Start 01/25/17 at 00:00 Pantoprazole (Protonix Iv) 40 mg DAILY@06 IV Last administered on 01/26/17 05: 28; Admin Dose 40 MG; Start 01/26/17 at 06:00 SHAW LY MD Jan 26, 2017 14:31
--- NOTE | 2017-01-26 15:15 | CONS ---
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 culture the wound site and continue with vanco/zosyn 01/18 - g-tube wound cx is NGTD 01/19 - g-tube wound cx has scant CoNS, doubt this is significant 01/20 - await decision regarding g-tube re-insertion 01/21 - pt is too lethargic for swallow eval to be done, re-attempt today 01/22 - pt to get new g-tube placed today 01/23 - unable to get g-tube yesterday, re-scheduled for today 01/24 - pt got G-tube and TF restarted no abd pain 2) choleycystitis pt has had a drain in place for this until she is ready for surgery will cx the fluid that is present 01/18 - AMBROSE drain cx has growth but too young continue with vanco/zosyn CT showed distending GB and gallstones but no fluid around the GB 01/19 - AMBROSE drain is growing regular klebsiella and MRSA due to kleb +ESBL in urine will change zosyn to merrem, to continue with vanco contact isolation ordered 01/20 - continue with vanco/merrem at present 01/22 - WBC almost back to normal day 01/13 of vanco and day 4/ of merrem likely will change to po augmentin/bactrim in 3 days if WBC is ok 01/23 - no new recs 01/24 - continue with vanco/merrem thru 01/25 then change to po augmentin/bactrim 01/25 - WBC has trended upward over the last several days, will delay transition to oral medications a further 24 hours to monitor WBC 3) recent STEMI and hx of CABG 4) renal failure pt has very good creatinine but is still receiving dialysis she also has distended bladder by CT will get u/a and urine cx, nurse to straight cath vanco/zosyn should cover 5) sacral ulcer unable to see nurse to get picture 01/18 - no sign for infection according to notes 6) UTI 01/18 - pus is coming out from guevara urine cx is growing GNR continue with zosyn as WBC is decreasing 01/19 - urine cx has kleb +ESBL change zosyn to merrem merrem to be given after HD on dialysis days 01/20 - no change 01/21 - pt's urine output is picking up 01/22 - day / of merrem 01/24 - day 12/11 of merrem repeat u/a and urine cx, if neg can consider stopping isolation 01/25 - day 01/10 of meropenem 7) R pleural effusion with possible consolidation 01/18 - no phlegm production on vanco/zosyn at present will order nasal for MRSA pt to possibly get R thorancentesis 01/19 - pleural fluid does not appear to be infected with low WBC count and less than 50% PMN's will check LDH in serum to verify if exudative or transudative 01/20 - LDH results consistent with exudative process, cx remain NGTD 01/21 - pleural fluid cx remains NGTD 01/22 - pleural cx was neg 8) 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 01/20 - no sign of cellulitis around these toes 01/22 - stable Consultation Date/Type/Reason Admit Date/Time Jan 16, 2017 at 22:45 Initial Consult Date 01/18/17 Type of Consultation: Infectious Diseases Referring Provider: SHAMA LOPEZ MD 24 HR Interval Summary Free Text/Dictation No complaints, is visiting with a friend. Denies sore throat, cough, CP, SOB, PURCELL , abdominal pain, N, V, D. Exam/Review of Systems Vital Signs Vitals Vital Signs Date Time Temp Pulse Resp B/P Pulse Ox O2 Delivery O2 Flow Rate FiO2 01/26/17 13:03 96 21 01/26/17 13:03 97 18 01/26/17 11:35 98.6 115/57 01/26/17 08:10 Nasal Cannula 2.0 Intake and Output 01/25/17 01/25/17 01/26/17 15:00 23:00 07:00 Intake Total 500 ml 50 ml 600 ml Output Total 3500 ml 505 ml 200 ml Balance -3000 ml -455 ml 400 ml Exam Constitutional: alert Head: normocephalic ENMT: other (dried secretions of top of tongue) Respiratory: clear to auscultation Cardiovascular: regular rate and rhythm Gastrointestinal: non-tender, soft, myron tube site is clean, GT site is clean , no SQ emphysema noted PICC site is clear RUE Results Result Diagram: 01/26/17 0610 01/26/17 0610 Results 24 hrs Laboratory Tests Test 01/25/17 17:30 01/26/17 00:09 01/26/17 05:26 01/26/17 06:10 Bedside Glucose 145 132 134 White Blood Count 15.5 H Red Blood Count 3.00 L Hemoglobin 8.3 L Hematocrit 27.5 L Mean Corpuscular Volume 91.7 Mean Corpuscular Hemoglobin 27.7 L Mean Corpuscular Hemoglobin Concent 30.2 L Red Cell Distribution Width 18.7 H Platelet Count 191 Mean Platelet Volume 10.5 H Neutrophils % 72.1 Lymphocytes % 16.2 Monocytes % 6.9 Eosinophils % 1.1 Basophils % 0.2 Nucleated Red Blood Cells % 0.3 H Neutrophils # 11.1 H Lymphocytes # 2.5 Monocytes # 1.1 H Eosinophils # 0.2 Basophils # 0.0 Nucleated Red Blood Cells # 0.0 Erythrocyte Sedimentation Rate 99 H Sodium Level 143 Potassium Level 3.7 Chloride Level 103 Carbon Dioxide Level 30 Anion Gap 14 Blood Urea Nitrogen 38 H Creatinine 1.11 H Glucose Level 122 Calcium Level 8.0 L Total Bilirubin 0.0 L Direct Bilirubin 0.00 Indirect Bilirubin 0.0 Aspartate Amino Transf (AST/SGOT) 30 Alanine Aminotransferase (ALT/SGPT) 27 Alkaline Phosphatase 195 H Total Protein 5.6 L Albumin 2.3 L Globulin 3.30 H Albumin/Globulin Ratio 0.69 Test 01/26/17 08:41 01/26/17 11:52 Bedside Glucose 146 155 Medications Medications Current Medications Metoprolol Tartrate (Lopressor) 2.5 mg BID IV Last administered on 01/26/17 09 :09; Admin Dose 2.5 MG; Start 01/17/17 at 09:00 Miscellaneous Information 1 ea NOTE XX ; Start 01/16/17 at 23:30 Glucose (Glutose) 15 gm Q15M PRN PO DECREASED GLUCOSE; Start 01/16/17 at 23:30 Glucose (Glutose) 22.5 gm Q15M PRN PO DECREASED GLUCOSE; Start 01/16/17 at 23: 30 Dextrose (D50w Syringe) 25 ml Q15M PRN IV DECREASED GLUCOSE Last administered on 01/22/17 20:54; Admin Dose 25 ML; Start 01/16/17 at 23:30 Dextrose (D50w Syringe) 50 ml Q15M PRN IV DECREASED GLUCOSE; Start 01/16/17 at 23:30 Glucagon (Glucagen) 1 mg Q15M PRN IM DECREASED GLUCOSE; Start 01/16/17 at 23:30 Glucose (Glutose) 15 gm Q15M PRN BUCCAL DECREASED GLUCOSE; Start 01/16/17 at 23 :30 Latanoprost (Xalatan) 1 drop HS BOTH EYES Last administered on 01/25/17 20:42 ; Admin Dose 1 DROP; Start 01/17/17 at 21:00 Epoetin Raj (Epogen (Esrd)) 10,000 units TuThSa@17 SC Last administered on 17:30; Admin Dose 10,000 UNITS; Start 01/18/17 at 17:00 Ondansetron HCl (Zofran Inj) 4 mg Q6H PRN IV NAUSEA AND/OR VOMITING; Start at 00:30 Collagenase (Santyl) 1 applic DAILY TOP Last administered on 01/26/17 09:08; Admin Dose 1 APPLIC; Start 01/18/17 at 16:00 Collagenase 1 applic 1 applic PRN PRN TOP WOUND CARE; Start 01/18/17 at 15:00 Meropenem/Sodium Chloride (Merrem 500mg/50 ml(Pmx)) 50 ml @ 100 mls/hr DAILY@ 20 IVPB Last administered on 01/25/17 20:42; Admin Dose 100 MLS/HR; Start at 20:00 Enoxaparin Sodium (Lovenox) 30 mg DAILY SC Last administered on 01/26/17 09:00 ; Admin Dose 30 MG; Start 01/20/17 at 09:00 Bisacodyl (Dulcolax Supp) 10 mg BID PRN [place] CONSTIPATION; Start 01/20/17 at 17: 00 Sodium Biphosphate/ Sodium Phosphate (Fleet Enema) 133 ml BID PRN [place] CONSTIPATION; Start 01/20/17 at 17:00 Neomycin/ Polymyxin/ Bacitracin 1 applic 1 applic TID TOP Last administered on 01/26/17 11:59; Admin Dose 1 APPLIC; Start 01/21/17 at 21:00 Vancomycin HCl (Vancocin) 250 ml @ 125 mls/hr Q96H IVPB Last administered on 22:16; Admin Dose 125 MLS/HR; Start 01/22/17 at 22:00 Morphine Sulfate (morphine) 2 mg Q4H PRN IV PAIN Last administered on 02:02; Admin Dose 2 MG; Start 01/22/17 at 16:00 Acetaminophen (Tylenol Tab) 650 mg Q6H PRN PO PAIN AND OR ELEVATED TEMP Last administered on 01/26/17 09:08; Admin Dose 650 MG; Start 01/23/17 at 19:30 Insulin Glargine (Lantus) 30 unit DAILY@08 SC Last administered on 01/26/17 08 :54; Admin Dose 30 UNIT; Start 01/25/17 at 08:00 Ferrous Sulfate (Feosol Liquid Cup) 300 mg DAILY GTB Last administered on 09:07; Admin Dose 300 MG; Start 01/24/17 at 16:30 Insulin Aspart (Novolog Insulin Pen) NOVOLOG *MODERATE* ALGORI... Q6 SC Last administered on 01/26/17 11:58; Admin Dose 2 UNIT; Start 01/25/17 at 00:00 Pantoprazole (Protonix Iv) 40 mg DAILY@06 IV Last administered on 01/26/17 05: 28; Admin Dose 40 MG; Start 01/26/17 at 06:00 SALVADOR KRISHNAMURTHY Jan 26, 2017 15:15
--- NOTE | 2017-01-26 17:08 | PN ---
Date/Time of Note Date/Time of Note DATE: 01/26/17 TIME: 17:07 Assessment/Plan VTE Prophylaxis VTE Prophylaxis Intervention: LMWH Lines/Catheters IV [facility]ter Type (from [facility]): PICC Line Central line still needed: Yes Urinary Cath still in place: Yes Reason Cath still needed: other (indicate) Assessment/Plan Assessment/Plan (1) Cholecystitis Status: Chronic Comment: s/p percutaneous myron drain. recheck liver enzymes since patient has rising wbc again. (2) ESRD (end stage renal disease) on dialysis Status: Chronic Comment: continue dialysis an ultrafiltration per renal's management (3) Sepsis Status: Acute Comment: Most likely from abdominal wall cellulitis, patient is on antibiotics per ID guidance for positive wound cultures from drain and G tube site. s/p G tube replacement and getting feeding again but increasing wbc is of concern. Will reculture today. (4) Gangrene Status: Chronic Comment: stable appearance of toes. (5) Cellulitis Status: Acute Comment: improving clinically on vanco and meropenem but now having recurrence of leukocytosis. Recheck urine, blood , cxr and kub today. (6) Pupils asymmetry- left pupil dilation appears new to me, will check head CT since patient has high risk for CVA and is on Lovenox. Subjective 24 Hr Interval Summary Free Text/Dictation Patient awake and oriented to name and place. Denies new pain or numbness. Exam/Review of Systems Vital Signs Vitals Vital Signs Date Time Temp Pulse Resp B/P Pulse Ox O2 Delivery O2 Flow Rate FiO2 01/26/17 15:23 98.6 97 18 124/59 96 01/26/17 13:03 21 01/26/17 08:10 Nasal Cannula 2.0 Intake and Output 01/25/17 01/25/17 01/26/17 15:00 23:00 07:00 Intake Total 500 ml 50 ml 600 ml Output Total 3500 ml 505 ml 200 ml Balance -3000 ml -455 ml 400 ml Exam Constitutional: alert, oriented Head: atraumatic, normocephalic Eyes: nl conjunctiva, nl sclera (left pupil marked more dilated than right pupil with sluggish respond to light) Respiratory: clear to auscultation Cardiovascular: regular rate and rhythm Gastrointestinal: non-tender (G tube site without erythema or discharge), soft Neurological: focal weakness (decreased motor strength of bilateral lower extremities left > right) Results Result Diagram: 01/26/17 0610 01/26/17 0610 Results 24 hrs Laboratory Tests Test 01/25/17 17:30 01/26/17 00:09 01/26/17 05:26 01/26/17 06:10 Bedside Glucose 145 132 134 White Blood Count 15.5 H Red Blood Count 3.00 L Hemoglobin 8.3 L Hematocrit 27.5 L Mean Corpuscular Volume 91.7 Mean Corpuscular Hemoglobin 27.7 L Mean Corpuscular Hemoglobin Concent 30.2 L Red Cell Distribution Width 18.7 H Platelet Count 191 Mean Platelet Volume 10.5 H Neutrophils % 72.1 Lymphocytes % 16.2 Monocytes % 6.9 Eosinophils % 1.1 Basophils % 0.2 Nucleated Red Blood Cells % 0.3 H Neutrophils # 11.1 H Lymphocytes # 2.5 Monocytes # 1.1 H Eosinophils # 0.2 Basophils # 0.0 Nucleated Red Blood Cells # 0.0 Erythrocyte Sedimentation Rate 99 H Sodium Level 143 Potassium Level 3.7 Chloride Level 103 Carbon Dioxide Level 30 Anion Gap 14 Blood Urea Nitrogen 38 H Creatinine 1.11 H Glucose Level 122 Calcium Level 8.0 L Total Bilirubin 0.0 L Direct Bilirubin 0.00 Indirect Bilirubin 0.0 Aspartate Amino Transf (AST/SGOT) 30 Alanine Aminotransferase (ALT/SGPT) 27 Alkaline Phosphatase 195 H Total Protein 5.6 L Albumin 2.3 L Globulin 3.30 H Albumin/Globulin Ratio 0.69 Test 01/26/17 08:41 01/26/17 11:52 Bedside Glucose 146 155 Medications Medications Current Medications Metoprolol Tartrate (Lopressor) 2.5 mg BID IV Last administered on 01/26/17 09 :09; Admin Dose 2.5 MG; Start 01/17/17 at 09:00 Miscellaneous Information 1 ea NOTE XX ; Start 01/16/17 at 23:30 Glucose (Glutose) 15 gm Q15M PRN PO DECREASED GLUCOSE; Start 01/16/17 at 23:30 Glucose (Glutose) 22.5 gm Q15M PRN PO DECREASED GLUCOSE; Start 01/16/17 at 23: 30 Dextrose (D50w Syringe) 25 ml Q15M PRN IV DECREASED GLUCOSE Last administered on 01/22/17 20:54; Admin Dose 25 ML; Start 01/16/17 at 23:30 Dextrose (D50w Syringe) 50 ml Q15M PRN IV DECREASED GLUCOSE; Start 01/16/17 at 23:30 Glucagon (Glucagen) 1 mg Q15M PRN IM DECREASED GLUCOSE; Start 01/16/17 at 23:30 Glucose (Glutose) 15 gm Q15M PRN BUCCAL DECREASED GLUCOSE; Start 01/16/17 at 23 :30 Latanoprost (Xalatan) 1 drop HS BOTH EYES Last administered on 01/25/17 20:42 ; Admin Dose 1 DROP; Start 01/17/17 at 21:00 Epoetin Raj (Epogen (Esrd)) 10,000 units TuThSa@17 SC Last administered on 17:30; Admin Dose 10,000 UNITS; Start 01/18/17 at 17:00 Ondansetron HCl (Zofran Inj) 4 mg Q6H PRN IV NAUSEA AND/OR VOMITING; Start at 00:30 Collagenase (Santyl) 1 applic DAILY TOP Last administered on 01/26/17 09:08; Admin Dose 1 APPLIC; Start 01/18/17 at 16:00 Collagenase 1 applic 1 applic PRN PRN TOP WOUND CARE; Start 01/18/17 at 15:00 Meropenem/Sodium Chloride (Merrem 500mg/50 ml(Pmx)) 50 ml @ 100 mls/hr DAILY@ 20 IVPB Last administered on 01/25/17 20:42; Admin Dose 100 MLS/HR; Start at 20:00 Enoxaparin Sodium (Lovenox) 30 mg DAILY SC Last administered on 01/26/17 09:00 ; Admin Dose 30 MG; Start 01/20/17 at 09:00 Bisacodyl (Dulcolax Supp) 10 mg BID PRN [place] CONSTIPATION; Start 01/20/17 at 17: 00 Sodium Biphosphate/ Sodium Phosphate (Fleet Enema) 133 ml BID PRN [place] CONSTIPATION; Start 01/20/17 at 17:00 Neomycin/ Polymyxin/ Bacitracin 1 applic 1 applic TID TOP Last administered on 01/26/17 11:59; Admin Dose 1 APPLIC; Start 01/21/17 at 21:00 Vancomycin HCl (Vancocin) 250 ml @ 125 mls/hr Q96H IVPB Last administered on 22:16; Admin Dose 125 MLS/HR; Start 01/22/17 at 22:00 Morphine Sulfate (morphine) 2 mg Q4H PRN IV PAIN Last administered on 02:02; Admin Dose 2 MG; Start 01/22/17 at 16:00 Acetaminophen (Tylenol Tab) 650 mg Q6H PRN PO PAIN AND OR ELEVATED TEMP Last administered on 01/26/17 09:08; Admin Dose 650 MG; Start 01/23/17 at 19:30 Insulin Glargine (Lantus) 30 unit DAILY@08 SC Last administered on 01/26/17 08 :54; Admin Dose 30 UNIT; Start 01/25/17 at 08:00 Ferrous Sulfate (Feosol Liquid Cup) 300 mg DAILY GTB Last administered on 09:07; Admin Dose 300 MG; Start 01/24/17 at 16:30 Insulin Aspart (Novolog Insulin Pen) NOVOLOG *MODERATE* ALGORI... Q6 SC Last administered on 01/26/17 11:58; Admin Dose 2 UNIT; Start 01/25/17 at 00:00 Pantoprazole (Protonix Iv) 40 mg DAILY@06 IV Last administered on 01/26/17 05: 28; Admin Dose 40 MG; Start 01/26/17 at 06:00 SONALI WALKER MD Jan 26, 2017 17:08
[2017-01-26] MEDS ORDERED: DIATR MEGLU/DIATRIZOATE SODIUM 120 ML BTL ONE (17:39)
--- NOTE | 2017-01-26 20:03 | RADRPT ---
PROCEDURE: CT Brain without contrast. CLINICAL INDICATION: Left pupil dilatation lower extremity weakness TECHNIQUE: A CT of the brain was performed on a GE [employer]ed 64-slice CT scanner utilizing axial imaging from the skull base through the vertex without IV contrast. Multiplanar reformatted images were made. Images were reviewed on a PACS workstation. The CTDIvol is 45.00 mGy and the DLP is 720 .23 mGycm. One of the following 3 dose reduction techniques were used: Automated exposure control; adjustment of the mA and/or kV according to patient size; or use of iterative reconstruction technique. COMPARISON: None FINDINGS: There is no intracranial hemorrhage, mass effect, or midline shift. No extra-axial fluid collection is seen. The ventricles and sulci are age appropriate. Mild diffuse volume loss is present. Mild decreased attenuation is present in the bilateral centrum semiovale and periventricular white matter . Mild vascular calcifications are present of the intracranial internal carotid arteries. The visualized scalp and calvarium are normal. The bilateral orbits demonstrate sequela of prior le ns replacement. The bilateral paranasal sinuses, mastoid air cells and middle ear cavities are russel r. IMPRESSION: 1. No evidence of acute hemorrhage, infarcts or acute intracranial pathology. 2. Mild chronic microvascular ischemic disease and diffuse volume loss. 3. Mild atherosclerotic vascular disease. RPTAT: HDC .Bethany Feliciano MD, Date Time Electronically viewed and signed by .Bethany Feliciano MD, on 01/26/2017 20:03 .C/
[2017-01-26] MEDS: MEROPENEM 500MG/50 ML (PMX) 50 ML IVPB SCH (21:09)
[2017-01-26] MEDS: LATANOPROST 0.005% 2.5 ML OPH BOTH EYES SCH (21:10)
[2017-01-26] MEDS: VANCOMYCIN 1 GM in NS 250 ML IVPB SCH (22:51)
[2017-01-27] VITALS (20 sets, daily range): BP systolic 92–133; BP diastolic 50–76; PULSE 94–120; RESP 18–20
[2017-01-27] MEDS: LEVALBUTEROL (NEB) 0.31 MG/3 ML AMP HHN SCH ×4 (01:12→19:46)
--- NOTE | 2017-01-27 04:31 | RADRPT ---
PROCEDURE: XR Chest. CLINICAL INDICATION: Pleural effusion. TECHNIQUE: Single frontal view of the chest. COMPARISON: 10/08/2016. FINDINGS: Previously seen endotracheal intubation and left central venous line are removed. Previously seen n asogastric tube is removed. There is a move double-lumen right central venous dialysis catheter in place with tip in the right a trium. Previously seen dense air space disease in the right upper lobe is resolved. Previously seen right pleural effusion is substantially resolved, with likely trace fluid at the right lung base. There i s mildly increased right lung base atelectasis.. There is new dense atelectasis versus airspace dise ase at the left lung base. No signs of pneumothorax are seen. The osseous structures and soft tissue s are unremarkable. IMPRESSION: 1. New right central venous dialysis catheter in place with tip in the superior vena cava. 2. Interval resolution of right mid lung air space disease. 3. Substantially resolved right pleural effusion, with likely persistent trace right pleural effusi on. 4. Mildly increased right lung base atelectasis. 5. New dense atelectasis versus airspace disease at the left lung base. RPTAT: UU Physician Juan Date Time Electronically viewed and signed by Physician Juan on 01/27/2017 04:30 RS/
[2017-01-27] MEDS: PANTOPRAZOLE 40 MG INJ IV SCH (05:20)
[2017-01-27] MEDS: INSULIN ASPART [NOVOLOG] 3 ML PEN SC SCH ×4 (05:20→17:10)
--- NOTE | 2017-01-27 06:50 | RADRPT ---
PROCEDURE: XR Abdomen. CLINICAL INDICATION: Gastrostomy tube placement. TECHNIQUE: AP supine abdomen x-ray. COMPARISON: 01/17/2017. FINDINGS: There is a cholecystostomy catheter in the right upper quadrant of the abdomen. Contrast is present in the stomach and there is a gastrostomy tube overlying the stomach. Surgical clips are present i n the left side of the abdomen. The bowel gas pattern is normal with no evidence of obstruction. There are no abnormal calcifications overlying the urinary tracts. The osseus structures are unremarkable. IMPRESSION: 1. Gastrostomy tube in the stomach with contrast in the stomach. RPTAT: QQ .Arnaldo Back MD, MD Date Time Electronically viewed and signed by .Arnaldo Back MD, on 01/27/2017 06:50 .R/
[2017-01-27 07:19] LABS: BASOPHILS % 0.2 % (0.0-2.0); EOSINOPHILS # 0.3 10^3/ul (0.0-0.5); EOSINOPHILS % 1.7 % (0.0-7.0); HEMATOCRIT 26.3 % (37.0-47.0); HEMOGLOBIN 7.7 g/dl (12.0-16.0); LYMPHOCYTES # 1.9 10^3/ul (0.8-2.9); LYMPHOCYTES % 11.5 % (15.0-51.0); MEAN CORPUSCULAR HEMOGLOBIN 26.7 pg (29.0-33.0); MEAN CORPUSCULAR HGB CONC 29.3 g/dl (32.0-37.0); MEAN CORPUSCULAR VOLUME 91.3 fl (82.0-101.0); MEAN PLATELET VOLUME 10.4 fl (7.4-10.4); MONOCYTE # 1.2 10^3/ul (0.3-0.9); MONOCYTES % 7.4 % (0.0-11.0); NEUTROPHIL # 12.5 10^3/ul (1.6-7.5); NEUTROPHILS % 77.2 % (39.0-77.0); PLATELET COUNT 215 10^3/UL (140-415); RED BLOOD COUNT 2.88 10^6/ul (4.20-5.40); WHITE BLOOD COUNT 16.3 10^3/ul (4.8-10.8)
[2017-01-27 07:30] LABS: POSITIVE DIFF @See below
[2017-01-27] MEDS: IPRATROPIUM (NEB) 0.5 MG/2.5 ML AMP HHN SCH ×3 (08:00→19:46)
[2017-01-27] MEDS: FERROUS SULFATE 60 MG/ML 5ML CUP GTB SCH (08:55)
[2017-01-27] MEDS: NEOMYC/POLYMYX/BACIT 30 GM OINT TOP SCH ×3 (08:55→21:00)
[2017-01-27] MEDS: ENOXAPARIN 30 MG/0.3 ML SYG SC SCH (08:57)
[2017-01-27] MEDS: INSULIN GLARGINE [LANtus] 3 ML PEN SC SCH (08:58)
--- NOTE | 2017-01-27 08:59 | CONS ---
Date/Time of Note Date/Time of Note DATE: 01/27/17 TIME: 08:56 Assessment/Plan Assessment/Plan Chief Complaint/Hosp Course Impression: 1. Renal failure. She is having dry ultrafiltration today . She continues to have flank edema. She remains quite weak. Her BUN and creatinine are low. I will order hemodialysis for tomorrow. 2. Multiple medical problems including insulin-dependent diabetes mellitus, atherosclerotic heart disease with acute VT and status post cardiac arrest with acute renal failure and anoxic encephalopathy, congestive heart failure, anemia of chronic disease, malnutrition, dysphagia requiring PEG placement , urinary tract infection , acute cholecystitis with drainage tube in place, peripheral vascular disease, history of her respiratory failure, history of acute cholecystitis with gallbladder drainage tube in place . She was admitted now because her gastric feeding tube dislodged and some of her feeding went into her abdominal cavity. She was admitted and thought to be septic at the time of admission. Plan: 1. She will have dry ultrafiltration for today and tomorrow. 2. Continue Epogen 3. Patient to have percutaneous endoscopic gastric tube placed today. 4. Agree with broad-spectrum antibiotics 5. I did speak to her regarding her current condition and advanced directives. I asked him to think about whether he would want her reintubated should that be needed . She had originally voiced the opinion that she did not want to be intubated. However this may have changed. She has had a rather stormy medical course over the last 4 months. She has shown very little improvement neurologically . I told the that we would continue everything else that we are doing including dialysis . Problems: Consultation Date/Type/Reason Admit Date/Time Jan 16, 2017 at 22:45 Initial Consult Date 01/18/17 Type of Consultation: Infectious Diseases Referring Provider: SHAMA LOPEZ MD 24 HR Interval Summary Free Text/Dictation She is just about to start a course of dry ultrafiltration. She is awake and responsive. Constitutional: improved, no complaints Exam/Review of Systems Vital Signs Vitals Vital Signs Date Time Temp Pulse Resp B/P Pulse Ox O2 Delivery O2 Flow Rate FiO2 01/27/17 08:12 105 01/27/17 07:55 16 96 21 01/27/17 07:22 98.0 106/51 01/26/17 21:00 Nasal Cannula 2.0 Intake and Output 01/26/17 01/26/17 01/27/17 15:00 23:00 07:00 Intake Total 680 ml Output Total 350 ml 300 ml Balance -350 ml 380 ml Exam Constitutional: alert, frail, obese Respiratory: clear to auscultation, diminished breath sounds Cardiovascular: edema, regular rate and rhythm Extremities: edema Results Result Diagram: 01/27/17 0616 01/26/17 0610 Results 24 hrs Laboratory Tests Test 01/26/17 11:52 01/26/17 18:11 01/27/17 00:19 01/27/17 05:18 Bedside Glucose 155 134 103 135 Test 01/27/17 06:16 White Blood Count 16.3 H Red Blood Count 2.88 L Hemoglobin 7.7 L Hematocrit 26.3 L Mean Corpuscular Volume 91.3 Mean Corpuscular Hemoglobin 26.7 L Mean Corpuscular Hemoglobin Concent 29.3 L Red Cell Distribution Width 19.0 H Platelet Count 215 Mean Platelet Volume 10.4 Neutrophils % 77.2 H Lymphocytes % 11.5 L Monocytes % 7.4 Eosinophils % 1.7 Basophils % 0.2 Nucleated Red Blood Cells % 0.0 Neutrophils # 12.5 H Lymphocytes # 1.9 Monocytes # 1.2 H Eosinophils # 0.3 Basophils # 0.0 Nucleated Red Blood Cells # 0.0 Medications Medications Current Medications Metoprolol Tartrate (Lopressor) 2.5 mg BID IV Last administered on 01/26/17 21 :12; Admin Dose 2.5 MG; Start 01/17/17 at 09:00 Miscellaneous Information 1 ea NOTE XX ; Start 01/16/17 at 23:30 Glucose (Glutose) 15 gm Q15M PRN PO DECREASED GLUCOSE; Start 01/16/17 at 23:30 Glucose (Glutose) 22.5 gm Q15M PRN PO DECREASED GLUCOSE; Start 01/16/17 at 23: 30 Dextrose (D50w Syringe) 25 ml Q15M PRN IV DECREASED GLUCOSE Last administered on 01/22/17 20:54; Admin Dose 25 ML; Start 01/16/17 at 23:30 Dextrose (D50w Syringe) 50 ml Q15M PRN IV DECREASED GLUCOSE; Start 01/16/17 at 23:30 Glucagon (Glucagen) 1 mg Q15M PRN IM DECREASED GLUCOSE; Start 01/16/17 at 23:30 Glucose (Glutose) 15 gm Q15M PRN BUCCAL DECREASED GLUCOSE; Start 01/16/17 at 23 :30 Latanoprost (Xalatan) 1 drop HS BOTH EYES Last administered on 01/26/17 21:10 ; Admin Dose 1 DROP; Start 01/17/17 at 21:00 Epoetin Raj (Epogen (Esrd)) 10,000 units TuThSa@17 SC Last administered on 17:30; Admin Dose 10,000 UNITS; Start 01/18/17 at 17:00 Ondansetron HCl (Zofran Inj) 4 mg Q6H PRN IV NAUSEA AND/OR VOMITING; Start at 00:30 Collagenase (Santyl) 1 applic DAILY TOP Last administered on 01/26/17 09:08; Admin Dose 1 APPLIC; Start 01/18/17 at 16:00 Collagenase 1 applic 1 applic PRN PRN TOP WOUND CARE; Start 01/18/17 at 15:00 Meropenem/Sodium Chloride (Merrem 500mg/50 ml(Pmx)) 50 ml @ 100 mls/hr DAILY@ 20 IVPB Last administered on 01/26/17 21:09; Admin Dose 100 MLS/HR; Start at 20:00 Enoxaparin Sodium (Lovenox) 30 mg DAILY SC Last administered on 01/26/17 09:00 ; Admin Dose 30 MG; Start 01/20/17 at 09:00 Bisacodyl (Dulcolax Supp) 10 mg BID PRN [place] CONSTIPATION; Start 01/20/17 at 17: 00 Sodium Biphosphate/ Sodium Phosphate (Fleet Enema) 133 ml BID PRN [place] CONSTIPATION; Start 01/20/17 at 17:00 Neomycin/ Polymyxin/ Bacitracin 1 applic 1 applic TID TOP Last administered on 01/26/17 21:13; Admin Dose 1 APPLIC; Start 01/21/17 at 21:00 Vancomycin HCl (Vancocin) 250 ml @ 125 mls/hr Q96H IVPB Last administered on 22:51; Admin Dose 125 MLS/HR; Start 01/22/17 at 22:00 Morphine Sulfate (morphine) 2 mg Q4H PRN IV PAIN Last administered on 02:02; Admin Dose 2 MG; Start 01/22/17 at 16:00 Acetaminophen (Tylenol Tab) 650 mg Q6H PRN PO PAIN AND OR ELEVATED TEMP Last administered on 01/26/17 09:08; Admin Dose 650 MG; Start 01/23/17 at 19:30 Insulin Glargine (Lantus) 30 unit DAILY@08 SC Last administered on 01/26/17 08 :54; Admin Dose 30 UNIT; Start 01/25/17 at 08:00 Ferrous Sulfate (Feosol Liquid Cup) 300 mg DAILY GTB Last administered on 09:07; Admin Dose 300 MG; Start 01/24/17 at 16:30 Insulin Aspart (Novolog Insulin Pen) NOVOLOG *MODERATE* ALGORI... Q6 SC Last administered on 01/26/17 11:58; Admin Dose 2 UNIT; Start 01/25/17 at 00:00 Pantoprazole (Protonix Iv) 40 mg DAILY@06 IV Last administered on 01/27/17 05: 20; Admin Dose 40 MG; Start 01/26/17 at 06:00 DAMIR MARTINEZ MD Jan 27, 2017 08:59
[2017-01-27] MEDS: METOPROLOL 5 MG INJ IV SCH ×2 (09:00→21:00)
--- NOTE | 2017-01-27 09:09 | CONS ---
Date/Time of Note Date/Time of Note DATE: 01/27/17 TIME: 09:05 Assessment/Plan Assessment/Plan Chief Complaint/Hosp Course 1) SubQ emphysema due to dislodged g-tube culture the wound site and continue with vanco/zosyn 01/18 - g-tube wound cx is NGTD 01/19 - g-tube wound cx has scant CoNS, doubt this is significant 01/20 - await decision regarding g-tube re-insertion 01/21 - pt is too lethargic for swallow eval to be done, re-attempt today 01/22 - pt to get new g-tube placed today 01/23 - unable to get g-tube yesterday, re-scheduled for today 01/24 - pt got G-tube and TF restarted no abd pain 01/27 - looks benign and non tender 2) choleycystitis pt has had a drain in place for this until she is ready for surgery will cx the fluid that is present 01/18 - AMBROSE drain cx has growth but too young continue with vanco/zosyn CT showed distending GB and gallstones but no fluid around the GB 01/19 - AMBROSE drain is growing regular klebsiella and MRSA due to kleb +ESBL in urine will change zosyn to merrem, to continue with vanco contact isolation ordered 01/20 - continue with vanco/merrem at present 01/22 - WBC almost back to normal day 01/13 of vanco and day 4/7 of merrem likely will change to po augmentin/bactrim in 3 days if WBC is ok 01/23 - no new recs 01/24 - continue with vanco/merrem thru 01/25 then change to po augmentin/bactrim 01/27 - due to elevated wbc, continue with vanco/merrem and re-cx the GB fluie 3) recent STEMI and hx of CABG 4) renal failure pt has very good creatinine but is still receiving dialysis she also has distended bladder by CT will get u/a and urine cx, nurse to straight cath vanco/zosyn should cover 5) sacral ulcer unable to see nurse to get picture 01/18 - no sign for infection according to notes 6) UTI 01/18 - pus is coming out from guevara urine cx is growing GNR continue with zosyn as WBC is decreasing 01/19 - urine cx has kleb +ESBL change zosyn to merrem merrem to be given after HD on dialysis days 01/20 - no change 01/21 - pt's urine output is picking up 01/22 - day / of merrem 01/24 - day 12/11 of merrem repeat u/a and urine cx, if neg can consider stopping isolation 01/27 - re-culture urine, on merrem 7) R pleural effusion with possible consolidation 01/18 - no phlegm production on vanco/zosyn at present will order nasal for MRSA pt to possibly get R thorancentesis 01/19 - pleural fluid does not appear to be infected with low WBC count and less than 50% PMN's will check LDH in serum to verify if exudative or transudative 01/20 - LDH results consistent with exudative process, cx remain NGTD 01/21 - pleural fluid cx remains NGTD 01/22 - pleural cx was neg 8) 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 01/20 - no sign of cellulitis around these toes 01/22 - stable 9) leukocytosis clinically pt looks better re culture urine, blood, and GB fluid maintain on vanco/merrem CXR was not impressive for new lung infection and her breathing is stable Problems: Consultation Date/Type/Reason Admit Date/Time Jan 16, 2017 at 22:45 Initial Consult Date 01/17/17 Type of Consultation: Infectious Diseases Referring Provider: SHAMA LOPEZ MD 24 HR Interval Summary Free Text/Dictation pt more alert and says good morning to me no N, V, D pt is getting dialysis Exam/Review of Systems Vital Signs Vitals Vital Signs Date Time Temp Pulse Resp B/P Pulse Ox O2 Delivery O2 Flow Rate FiO2 01/27/17 09:00 102 01/27/17 07:55 16 96 21 01/27/17 07:22 98.0 106/51 01/26/17 21:00 Nasal Cannula 2.0 Intake and Output 01/26/17 01/26/17 01/27/17 15:00 23:00 07:00 Intake Total 680 ml Output Total 350 ml 300 ml Balance -350 ml 380 ml Exam Constitutional: alert Eyes: nl conjunctiva ENMT: mucosa pink and moist Respiratory: clear to auscultation Cardiovascular: regular rate and rhythm Gastrointestinal: non-tender, other (g-tube site is ok), soft Extremities: other (no change to dry gangrene to some toes) Results Result Diagram: 01/27/17 0616 01/26/17 0610 Results 24 hrs Laboratory Tests Test 01/26/17 11:52 01/26/17 18:11 01/27/17 00:19 01/27/17 05:18 Bedside Glucose 155 134 103 135 Test 01/27/17 06:16 White Blood Count 16.3 H Red Blood Count 2.88 L Hemoglobin 7.7 L Hematocrit 26.3 L Mean Corpuscular Volume 91.3 Mean Corpuscular Hemoglobin 26.7 L Mean Corpuscular Hemoglobin Concent 29.3 L Red Cell Distribution Width 19.0 H Platelet Count 215 Mean Platelet Volume 10.4 Neutrophils % 77.2 H Lymphocytes % 11.5 L Monocytes % 7.4 Eosinophils % 1.7 Basophils % 0.2 Nucleated Red Blood Cells % 0.0 Neutrophils # 12.5 H Lymphocytes # 1.9 Monocytes # 1.2 H Eosinophils # 0.3 Basophils # 0.0 Nucleated Red Blood Cells # 0.0 Medications Medications Current Medications Metoprolol Tartrate (Lopressor) 2.5 mg BID IV Last administered on 01/26/17 21 :12; Admin Dose 2.5 MG; Start 01/17/17 at 09:00 Miscellaneous Information 1 ea NOTE XX ; Start 01/16/17 at 23:30 Glucose (Glutose) 15 gm Q15M PRN PO DECREASED GLUCOSE; Start 01/16/17 at 23:30 Glucose (Glutose) 22.5 gm Q15M PRN PO DECREASED GLUCOSE; Start 01/16/17 at 23: 30 Dextrose (D50w Syringe) 25 ml Q15M PRN IV DECREASED GLUCOSE Last administered on 01/22/17 20:54; Admin Dose 25 ML; Start 01/16/17 at 23:30 Dextrose (D50w Syringe) 50 ml Q15M PRN IV DECREASED GLUCOSE; Start 01/16/17 at 23:30 Glucagon (Glucagen) 1 mg Q15M PRN IM DECREASED GLUCOSE; Start 01/16/17 at 23:30 Glucose (Glutose) 15 gm Q15M PRN BUCCAL DECREASED GLUCOSE; Start 01/16/17 at 23 :30 Latanoprost (Xalatan) 1 drop HS BOTH EYES Last administered on 01/26/17 21:10 ; Admin Dose 1 DROP; Start 01/17/17 at 21:00 Epoetin Raj (Epogen (Esrd)) 10,000 units TuThSa@17 SC Last administered on 17:30; Admin Dose 10,000 UNITS; Start 01/18/17 at 17:00 Ondansetron HCl (Zofran Inj) 4 mg Q6H PRN IV NAUSEA AND/OR VOMITING; Start at 00:30 Collagenase (Santyl) 1 applic DAILY TOP Last administered on 01/26/17 09:08; Admin Dose 1 APPLIC; Start 01/18/17 at 16:00 Collagenase 1 applic 1 applic PRN PRN TOP WOUND CARE; Start 01/18/17 at 15:00 Meropenem/Sodium Chloride (Merrem 500mg/50 ml(Pmx)) 50 ml @ 100 mls/hr DAILY@ 20 IVPB Last administered on 01/26/17 21:09; Admin Dose 100 MLS/HR; Start at 20:00 Enoxaparin Sodium (Lovenox) 30 mg DAILY SC Last administered on 01/27/17 08:57 ; Admin Dose 30 MG; Start 01/20/17 at 09:00 Bisacodyl (Dulcolax Supp) 10 mg BID PRN [place] CONSTIPATION; Start 01/20/17 at 17: 00 Sodium Biphosphate/ Sodium Phosphate (Fleet Enema) 133 ml BID PRN [place] CONSTIPATION; Start 01/20/17 at 17:00 Neomycin/ Polymyxin/ Bacitracin 1 applic 1 applic TID TOP Last administered on 01/27/17 08:55; Admin Dose 1 APPLIC; Start 01/21/17 at 21:00 Vancomycin HCl (Vancocin) 250 ml @ 125 mls/hr Q96H IVPB Last administered on 22:51; Admin Dose 125 MLS/HR; Start 01/22/17 at 22:00 Morphine Sulfate (morphine) 2 mg Q4H PRN IV PAIN Last administered on 02:02; Admin Dose 2 MG; Start 01/22/17 at 16:00 Acetaminophen (Tylenol Tab) 650 mg Q6H PRN PO PAIN AND OR ELEVATED TEMP Last administered on 01/26/17 09:08; Admin Dose 650 MG; Start 01/23/17 at 19:30 Insulin Glargine (Lantus) 30 unit DAILY@08 SC Last administered on 01/27/17 08 :58; Admin Dose 30 UNIT; Start 01/25/17 at 08:00 Ferrous Sulfate (Feosol Liquid Cup) 300 mg DAILY GTB Last administered on 08:55; Admin Dose 300 MG; Start 01/24/17 at 16:30 Insulin Aspart (Novolog Insulin Pen) NOVOLOG *MODERATE* ALGORI... Q6 SC Last administered on 01/26/17 11:58; Admin Dose 2 UNIT; Start 01/25/17 at 00:00 Pantoprazole (Protonix Iv) 40 mg DAILY@06 IV Last administered on 01/27/17 05: 20; Admin Dose 40 MG; Start 01/26/17 at 06:00 TR GOODEN MD Jan 27, 2017 09:09
--- NOTE | 2017-01-27 12:21 | CONS ---
Date/Time of Note Date/Time of Note DATE: 01/27/17 TIME: 12:20 Consult Date/Type/Reason Admit Date/Time Jan 16, 2017 at 22:45 Initial Consult Date 01/18/17 Type of Consultation: Pulmonary ICU Ordering Provider: SHAMA LOPEZ MD Subjective Seems more alert this morning following dialysis. Response to simple questions. Objective Vital Signs Date Time Temp Pulse Resp B/P Pulse Ox O2 Delivery O2 Flow Rate FiO2 01/27/17 12:04 101 01/27/17 11:19 98.7 19 133/61 98 01/27/17 07:55 21 01/26/17 21:00 Nasal Cannula 2.0 Intake and Output 01/26/17 01/26/17 01/27/17 14:59 22:59 06:59 Intake Total 680 ml Output Total 350 ml 300 ml Balance -350 ml 380 ml Exam GENERAL: Elderly lady chronically ill comfortable at rest VITAL SIGNS: per chart NECK: Supple. No JVD or lymphadenopathy. CARDIAC EXAM: S1, S2. No added sounds or murmurs. CHEST: clear bilaterally, No added sounds, rales or wheezes ABDOMEN: Soft, nontender. No guarding or rebound. EXTREMITIES: No cyanosis, clubbing or edema +2 NEUROLOGIC: Significant neuromuscular weakness Results/Medications Result Diagram: 01/27/17 0616 01/26/17 0610 Results 24 hrs Laboratory Tests Test 01/26/17 18:11 01/27/17 00:19 01/27/17 05:18 01/27/17 06:16 Bedside Glucose 134 103 135 White Blood Count 16.3 H Red Blood Count 2.88 L Hemoglobin 7.7 L Hematocrit 26.3 L Mean Corpuscular Volume 91.3 Mean Corpuscular Hemoglobin 26.7 L Mean Corpuscular Hemoglobin Concent 29.3 L Red Cell Distribution Width 19.0 H Platelet Count 215 Mean Platelet Volume 10.4 Neutrophils % 77.2 H Lymphocytes % 11.5 L Monocytes % 7.4 Eosinophils % 1.7 Basophils % 0.2 Nucleated Red Blood Cells % 0.0 Neutrophils # 12.5 H Lymphocytes # 1.9 Monocytes # 1.2 H Eosinophils # 0.3 Basophils # 0.0 Nucleated Red Blood Cells # 0.0 Medications Current Medications Metoprolol Tartrate (Lopressor) 2.5 mg BID IV Last administered on 7/23/17at 21 :12; Admin Dose 2.5 MG; Start 01/17/17 at 09:00 Miscellaneous Information 1 ea NOTE XX ; Start 01/16/17 at 23:30 Glucose (Glutose) 15 gm Q15M PRN PO DECREASED GLUCOSE; Start 01/16/17 at 23:30 Glucose (Glutose) 22.5 gm Q15M PRN PO DECREASED GLUCOSE; Start 01/16/17 at 23: 30 Dextrose (D50w Syringe) 25 ml Q15M PRN IV DECREASED GLUCOSE Last administered on 01/22/17 20:54; Admin Dose 25 ML; Start 01/16/17 at 23:30 Dextrose (D50w Syringe) 50 ml Q15M PRN IV DECREASED GLUCOSE; Start 01/16/17 at 23:30 Glucagon (Glucagen) 1 mg Q15M PRN IM DECREASED GLUCOSE; Start 01/16/17 at 23:30 Glucose (Glutose) 15 gm Q15M PRN BUCCAL DECREASED GLUCOSE; Start 01/16/17 at 23 :30 Latanoprost (Xalatan) 1 drop HS BOTH EYES Last administered on 01/26/17 21:10 ; Admin Dose 1 DROP; Start 01/17/17 at 21:00 Epoetin Raj (Epogen (Esrd)) 10,000 units TuThSa@17 SC Last administered on 17:30; Admin Dose 10,000 UNITS; Start 01/18/17 at 17:00 Ondansetron HCl (Zofran Inj) 4 mg Q6H PRN IV NAUSEA AND/OR VOMITING; Start at 00:30 Collagenase (Santyl) 1 applic DAILY TOP Last administered on 01/26/17 09:08; Admin Dose 1 APPLIC; Start 01/18/17 at 16:00 Collagenase 1 applic 1 applic PRN PRN TOP WOUND CARE; Start 01/18/17 at 15:00 Meropenem/Sodium Chloride (Merrem 500mg/50 ml(Pmx)) 50 ml @ 100 mls/hr DAILY@ 20 IVPB Last administered on 01/26/17 21:09; Admin Dose 100 MLS/HR; Start at 20:00 Enoxaparin Sodium (Lovenox) 30 mg DAILY SC Last administered on 01/27/17 08:57 ; Admin Dose 30 MG; Start 01/20/17 at 09:00 Bisacodyl (Dulcolax Supp) [address] CONSTIPATION; Start 01/20/17 at 17: 00 Sodium Biphosphate/ Sodium Phosphate (Fleet Enema) [address] CONSTIPATION; Start 01/20/17 at 17:00 Neomycin/ Polymyxin/ Bacitracin 1 applic 1 applic TID TOP Last administered on 01/27/17 08:55; Admin Dose 1 APPLIC; Start 01/21/17 at 21:00 Vancomycin HCl (Vancocin) 250 ml @ 125 mls/hr Q96H IVPB Last administered on 22:51; Admin Dose 125 MLS/HR; Start 01/22/17 at 22:00 Morphine Sulfate (morphine) 2 mg Q4H PRN IV PAIN Last administered on 02:02; Admin Dose 2 MG; Start 01/22/17 at 16:00 Acetaminophen (Tylenol Tab) 650 mg Q6H PRN PO PAIN AND OR ELEVATED TEMP Last administered on 01/26/17 09:08; Admin Dose 650 MG; Start 01/23/17 at 19:30 Insulin Glargine (Lantus) 30 unit DAILY@08 SC Last administered on 01/27/17 08 :58; Admin Dose 30 UNIT; Start 01/25/17 at 08:00 Ferrous Sulfate (Feosol Liquid Cup) 300 mg DAILY GTB Last administered on 08:55; Admin Dose 300 MG; Start 01/24/17 at 16:30 Insulin Aspart (Novolog Insulin Pen) NOVOLOG *MODERATE* ALGORI... Q6 SC Last administered on 01/27/17 12:10; Admin Dose 2 UNIT; Start 01/25/17 at 00:00 Pantoprazole (Protonix Iv) 40 mg DAILY@06 IV Last administered on 01/27/17 05: 20; Admin Dose 40 MG; Start 01/26/17 at 06:00 Assessment/Plan Chief Complaint/Hosp Course Switch assessment 1. Severe sepsis likely polymicrobial 2. Status post thoracentesis pleural fluid suggestive of transudative process given low protein however elevated LDH noted. No malignant cells noted 3. End-stage renal failure on hemodialysis 4. History ST elevation HI 5. Recent recurrent hypoxemic respiratory failure 6. Dysphagia G-tube has been dislodged. Patient has significant aspiration risk 7. Anemia likely of chronic disease Plan 1. Broad-spectrum antibiotics per infectious diseases 2. Supplemental O2 as needed 3. Wound care 4. Pleural fluid studies noted 5. Aspiration precautions 6. Tube feeding as tolerated once G-tube is replaced 7. Surgical recommendations noted endoscopic cholecystectomy when stable. 8. Continues hemodialysis 3 times a week. Consider downgrading to [facility]. Problems: ZANDRA ROBISON MD, [facility] Jan 27, 2017 12:21
--- NOTE | 2017-01-27 14:15 | PN ---
Date/Time of Note Date/Time of Note DATE: 01/27/17 TIME: 14:12 Assessment/Plan Lines/Catheters IV Catheter Type (from [facility]): PICC Line Rivas in Place (from [facility]): Yes Assessment/Plan Assessment/Plan [facility] Progress Note Date of Service: 01/27/17 Today's Impression & Plan: Overall has remained stable. Gallbladder: No new issues. Controlled with perc myron drain. 1. Plan is for laparoscopic cholecystectomy once the patient is medically stabilized (would likely take several weeks to months to accomplish). No further interventions needed at this time. 2, Will need drain care and education for patient and family as well as skilled nursing staff. Very important to flush the drain with 10 cc of normal saline once a day and record daily outputs. Feeding: Patient's new feeding tube is in place and feedings ongoing. Abdomen appears to be improving on the left side with mild to no discomfort. No indication for surgical intervention for this at the moment. Will benefit from official swallowing test when medically able to. 1. Cont feeding through PEG 2. Consider increasing rate to 60 cc/h Overall, patient is doing reasonably well and improving given the clinical picture and the extent of her problems. Urinary tract infection treated for E. coli. Her mood appears to be depressed and is thought to be appropriate given clinical picture and situational and slightly improved. Would benefit from occasional review from a medication standpoint. Despite her weight, the patient is likely malnourished and very important that the question of feeding is addressed on an ongoing basis. She is also extremely debilitated from a physical standpoint and very important for physical therapy to continue aggressively addressing this. With above assessment, I've recommended the following for today: 1. Medical management per primary team 2. Continue physical therapy involvement 3. Check lab and correct electrolytes as needed 4. Targeted antimicrobial therapy based on culture results 5. Monitor for signs of sepsis since she is at high risk (elevated and rising white blood cell count) 6. I will visit as needed Thank you again for allowing us to participate in the care of this very pleasant lady and her wonderful family. If there are any questions, please feel free to contact me at [phone]. Please note that, given the extensive number of diagnoses or management options , the moderate to extensive amount and/or complexity of data needed to be reviewed, and I risk of complications and/or morbidity or mortality, this qualifies as high complexity type of decision-making. Disclaimer: Inadvertent spelling and grammatical errors are likely due to EHR/ dictation software use and do not reflect on the quality of delivered patient care. Also, please note that the electronic time recorded on this node does not necessarily reflect the actual time of the visit. Updated Clinical Summary: A very pleasant 71-year-old lady with multiple comorbid issues including BMI of 35.6 as well as what has been in the hospital since 09/2016 being found unresponsive and multiple issues including congestive heart failure, acute renal failure due to acute tubular necrosis requiring dialysis, urinary tract infection with bacteremia and multiple other issues, who was found to have possible signs of acute cholecystitis on recent imaging. D/c to [facility] ([place] ) 12/25/16. Readmitted to [facility] for abdominal wall pain on the left side on 01/16/2017. Urinary tract infection treated for E. coli. Thoracentesis with removal of approximately 1 L of fluid from her chest 2016. Percutaneous gallbladder drain exchange 01/18/2017. Feeding tube replaced 01/23/2017 by GI (Dr. Helm). COMORBIDITIES: 1. BMI of 35.6. 2. Acute renal failure (ATN), on maintenance hemodialysis (Friday, , Friday). 3. Congestive heart failure. 4. Anemia. 5. Hypocalcemia. 6. Hypoalbuminemia and malnutrition. 7. Peripheral vascular disease with gangrene of toes of both feet. 8. Recent history of respiratory failure. 9. History of dysphagia requiring PEG placement and feedings. 10. Diabetes mellitus. 11. Leukocytosis from various sources. 12. Funguria with Erica glabrata and Erica albicans of the urine. 13. Escherichia coli and Enterococcus urinary tract infection 10/29/2016. 14. Escherichia coli bacteremia 12/02/2016 (x2 cultures). 15. Repeat culture of the urine 12/02/2016 with E. coli, enterococcus species and Klebsiella pneumoniae, extended-spectrum beta-lactamase. 16. Repeat bacteremia 12/08/2016 with Escherichia coli. 17. Urine positive for Erica albicans 12/11/2016. 18. Clostridium difficile colitis negative on a few stool samples. 19. Bilateral pleural effusions. 20. 2 mm calcified granuloma in the right lower lobe. 21. CT scan of abdomen and pelvis 12/13/2016 showing large amount of pericholecystic fluid with distention of the gallbladder, which could be of acute cholecystitis. 22. Tumefaction sludge, poorly visualized gallstones or soft tissue masses are suspected within the lumen of the distended gallbladder. 23. Anasarca. 24. Status post splenectomy. 25. A 2.8 cm left parapelvic cyst and an adjacent 1.4 cm simple cyst lateral upper portion of the lower third left kidney noted. 26. Atherosclerotic vascular disease. 27. Osteoarthritis of the thoracic and lumbosacral spine. 28. History of acute ST elevation myocardial infarction, inferior wall, status post code STEMI with stent placement, as well as temporary pacer wire. 29. Hyperlipidemia. 30. Possible aspiration pneumonia. 31. S/p CT-guided percutaneous transhepatic cholecystostomy drain placement 06/22, [facility]. 32. Feeding tube replaced 01/23/2017 by GI (Dr. Helm) at [facility]. Subjective: No major events or complaints other than above; no major abd pain; no reported major n/v/d; no sob or cp; + flatus; + BM; minimal activity. No new issues. Not able to stand on her own power. Objective: Vitals: See below Exam: GENERAL: On exam, the patient was laying in bed and appeared to be comfortable and in no acute distress. ABDOMEN: Soft, nontender and nondistended. There are no peritoneal signs or guarding. Perc GB drain with bilious output in the tubing. Minimal fluid in the accordion bag. PEG tube dressing clean. SKIN: Skin appears to be pink and feels warm to touch. NEUROLOGIC: Patient is awake, alert, and follows commands appropriately. Exam/Review of Systems Vital Signs Vitals Vital Signs Date Time Temp Pulse Resp B/P Pulse Ox O2 Delivery O2 Flow Rate FiO2 01/27/17 14:06 96 21 01/27/17 14:01 111 20 01/27/17 11:19 98.7 133/61 01/27/17 08:10 Nasal Cannula 2.0 Intake and Output 01/26/17 01/26/17 01/27/17 15:00 23:00 07:00 Intake Total 680 ml Output Total 350 ml 300 ml Balance -350 ml 380 ml Results Result Diagram: 01/27/1716 01/26/1710 SHANA ROSARIO M.D. Jan 27, 2017 14:15
[2017-01-27 14:16] LABS: ADD UMIC YES; UR ASCORBIC ACID 20 mg/dL (NEGATIVE); UR BACTERIA FEW /HPF (NONE SEEN); UR BILIRUBIN (Dip) NEGATIVE (NEGATIVE); UR BLOOD (Dip) 1+ mg/dL (NEGATIVE); UR BUDDING YEAST MANY /HPF (NONE SEEN); UR CLARITY TURBID (CLEAR); UR COLOR YELLOW (YELLOW); UR GLUCOSE (Dip) NEGATIVE (NEGATIVE); UR HYPHAE YEAST MANY /HPF (NONE SEEN); UR KETONES (Dip) NEGATIVE (NEGATIVE); UR LEUKOCYTE ESTERASE (Dip) 3+ Leu/ul (NEGATIVE); UR MUCUS FEW /HPF (NONE SEEN); UR NITRITE (Dip) NEGATIVE (NEGATIVE); UR RBC 85 /HPF (0-5); UR SPECIFIC GRAVITY (Dip) 1.015 (1.003-1.030); UR SQUAMOUS EPITHELIAL CELL MODERATE /HPF (FEW); UR TOTAL PROTEIN (Dip) 2+ mg/dl (NEGATIVE); UR UROBILINOGEN (Dip) NEGATIVE (NEGATIVE)
[2017-01-27] MEDS: COLLAGENASE 30 GM TUBE TOP SCH (17:17)
--- NOTE | 2017-01-27 17:56 | PN ---
Date/Time of Note Date/Time of Note DATE: 01/27/17 TIME: 17:52 Assessment/Plan Lines/Catheters IV Catheter Type (from Nrsg): PICC Line Urinary Cath still in place: Yes Assessment/Plan Assessment/Plan 01/27 elevated wbc lower hgb, ct brain neg 01/[address], feedings started , belly pain improved, scheduled for dialysis 01/23 hgb by picc low again. will repeat draw by arm and if hgb<8.0 will transfuse. gtube rescheduled to today. 01/22 hgb redraw and is higher 8.9. dialysis done today, awaiting gtube reinsertion. 01/21 surg reports ok for gtube replace. gi reports will plan to place in am. cr increased 1.3 to 1.4. choking on apple sauce yesterday. 01/20 dialysis today, low sugar overall bad day today. 01/19gi- awaiting consult for replacement of g-tube. pt not appear to be able to take po nutrition appropriately. GI- g-tube dislodged causing cellulitis of the abd wall. 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 dr lopez notified. -lawrence changed and growing klebsiella---id following and changing abx. -id following and pt on vanco/zosyn---now changed due to klebsiella to vanco/ merrem . vanco merrem to be completed on 01/25, then will be on ngt augmentin/ bactrim. due to elevated wbc iv abx cont. -gi replace g-tube 01/23. feeding restarted 01/24. -swallow study reordered. pt been more awake. renal- pt producing some urine. renal following and questioning if functionality has improved. fluid overloaded, being diuresed. dialysis restarting. epogen given. pulm has a right lung infiltrate and mod effusion. pulm following tapped for 1 liter removed. abx changed. been stable dm- on sliding scale. no nutrition yet, sugar running low- lantis decreased. d5 running. since feeding has been restarted the accu checks to be expected to go up and will need to increase insulin appropriately. will increase lantus back to 30 u, which is still lower than usually taking as out pt. cv- h/o arrest, stent NM, cards following. b-danyel restarted. stable cholecystostomy- surg following and drain changed and growing klebsiella. on abx. doing well. anemia- discussed with renal if transfusion is necessary. pt given epogen. renal to watch. low in FE. awaiting it g-tube to be reinserted or other source for feeding. hgb better 8.2. today cbc drawn from picc and the hgb 7.4. redraw from arm and 8.9. doing fine. lower today need to draw from arm poor iv access. picc in place. Exam/Review of Systems Vital Signs Vitals Vital Signs Date Time Temp Pulse Resp B/P Pulse Ox O2 Delivery O2 Flow Rate FiO2 01/27/17 16:16 110 01/27/17 15:20 98.0 19 124/76 97 01/27/17 14:06 21 01/27/17 08:10 Nasal Cannula 2.0 Intake and Output 01/26/17 01/26/17 01/27/17 15:00 23:00 07:00 Intake Total 680 ml Output Total 350 ml 300 ml Balance -350 ml 380 ml Results Result Diagram: 01/27/17 0616 01/26/17 0610 Results 24 hrs Laboratory Tests Test 01/26/17 18:11 01/27/17 00:19 01/27/17 03:45 01/27/17 05:18 Bedside Glucose 134 103 135 Urine Color YELLOW Urine Clarity TURBID A Urine pH 5.0 Urine Specific [place] 1.015 Urine Ketones NEGATIVE Urine Nitrite NEGATIVE Urine Bilirubin NEGATIVE Urine Urobilinogen NEGATIVE Urine Leukocyte Esterase 3+ H Urine Microscopic RBC 85 H Urine Microscopic WBC > 182 H Urine Squamous Epithelial Cells MODERATE Urine Calcium Oxalate Crystals MODERATE Urine Bacteria FEW A Urine Mucus FEW A Urine Yeast with Hyphae MANY A Urine Yeast (Budding) MANY A Urine Hemoglobin 1+ H Urine Glucose NEGATIVE Urine Total Protein 2+ H Test 01/27/17 06:16 01/27/17 12:06 01/27/17 17:08 White Blood Count 16.3 H Red Blood Count 2.88 L Hemoglobin 7.7 L Hematocrit 26.3 L Mean Corpuscular Volume 91.3 Mean Corpuscular Hemoglobin 26.7 L Mean Corpuscular Hemoglobin Concent 29.3 L Red Cell Distribution Width 19.0 H Platelet Count 215 Mean Platelet Volume 10.4 Neutrophils % 77.2 H Lymphocytes % 11.5 L Monocytes % 7.4 Eosinophils % 1.7 Basophils % 0.2 Nucleated Red Blood Cells % 0.0 Neutrophils # 12.5 H Lymphocytes # 1.9 Monocytes # 1.2 H Eosinophils # 0.3 Basophils # 0.0 Nucleated Red Blood Cells # 0.0 Bedside Glucose 176 125 Medications Medications Current Medications Metoprolol Tartrate (Lopressor) 2.5 mg BID IV Last administered on 01/26/17 21 :12; Admin Dose 2.5 MG; Start 01/17/17 at 09:00 Miscellaneous Information 1 ea NOTE XX ; Start 01/16/17 at 23:30 Glucose (Glutose) 15 gm Q15M PRN PO DECREASED GLUCOSE; Start 01/16/17 at 23:30 Glucose (Glutose) 22.5 gm Q15M PRN PO DECREASED GLUCOSE; Start 01/16/17 at 23: 30 Dextrose (D50w Syringe) 25 ml Q15M PRN IV DECREASED GLUCOSE Last administered on 01/22/17 20:54; Admin Dose 25 ML; Start 01/16/17 at 23:30 Dextrose (D50w Syringe) 50 ml Q15M PRN IV DECREASED GLUCOSE; Start 01/16/17 at 23:30 Glucagon (Glucagen) 1 mg Q15M PRN IM DECREASED GLUCOSE; Start 01/16/17 at 23:30 Glucose (Glutose) 15 gm Q15M PRN BUCCAL DECREASED GLUCOSE; Start 01/16/17 at 23 :30 Latanoprost (Xalatan) 1 drop HS BOTH EYES Last administered on 01/26/17 21:10 ; Admin Dose 1 DROP; Start 01/17/17 at 21:00 Epoetin Raj (Epogen (Esrd)) 10,000 units TuThSa@17 SC Last administered on 17:30; Admin Dose 10,000 UNITS; Start 01/18/17 at 17:00 Ondansetron HCl (Zofran Inj) 4 mg Q6H PRN IV NAUSEA AND/OR VOMITING; Start at 00:30 Collagenase (Santyl) 1 applic DAILY TOP Last administered on 01/27/17 17:17; Admin Dose 1 APPLIC; Start 01/18/17 at 16:00 Collagenase 1 applic 1 applic PRN PRN TOP WOUND CARE; Start 01/18/17 at 15:00 Meropenem/Sodium Chloride (Merrem 500mg/50 ml(Pmx)) 50 ml @ 100 mls/hr DAILY@ 20 IVPB Last administered on 01/26/17 21:09; Admin Dose 100 MLS/HR; Start at 20:00 Enoxaparin Sodium (Lovenox) 30 mg DAILY SC Last administered on 01/27/17 08:57 ; Admin Dose 30 MG; Start 01/20/17 at 09:00 Bisacodyl (Dulcolax Supp) 10 mg BID PRN [place] CONSTIPATION; Start 01/20/17 at 17: 00 Sodium Biphosphate/ Sodium Phosphate (Fleet Enema) 133 ml BID PRN [place] CONSTIPATION; Start 01/20/17 at 17:00 Neomycin/ Polymyxin/ Bacitracin 1 applic 1 applic TID TOP Last administered on 01/27/17 13:42; Admin Dose 1 APPLIC; Start 01/21/17 at 21:00 Vancomycin HCl (Vancocin) 250 ml @ 125 mls/hr Q96H IVPB Last administered on 22:51; Admin Dose 125 MLS/HR; Start 01/22/17 at 22:00 Morphine Sulfate (morphine) 2 mg Q4H PRN IV PAIN Last administered on 02:02; Admin Dose 2 MG; Start 01/22/17 at 16:00 Acetaminophen (Tylenol Tab) 650 mg Q6H PRN PO PAIN AND OR ELEVATED TEMP Last administered on 01/26/17 09:08; Admin Dose 650 MG; Start 01/23/17 at 19:30 Insulin Glargine (Lantus) 30 unit DAILY@08 SC Last administered on 01/27/17 08 :58; Admin Dose 30 UNIT; Start 01/25/17 at 08:00 Ferrous Sulfate (Feosol Liquid Cup) 300 mg DAILY GTB Last administered on 08:55; Admin Dose 300 MG; Start 01/24/17 at 16:30 Insulin Aspart (Novolog Insulin Pen) NOVOLOG *MODERATE* ALGORI... Q6 SC Last administered on 01/27/17 12:10; Admin Dose 2 UNIT; Start 01/25/17 at 00:00 Pantoprazole (Protonix Iv) 40 mg DAILY@06 IV Last administered on 01/27/17t 05: 20; Admin Dose 40 MG; Start 01/26/17 at 06:00 SHAW SRINIVASAN MD Jan 27, 2017 17:56
[2017-01-27] MEDS: MEROPENEM 500MG/50 ML (PMX) 50 ML IVPB SCH (20:00)
[2017-01-27] MEDS: LATANOPROST 0.005% 2.5 ML OPH BOTH EYES SCH (21:00)
[2017-01-28] VITALS (13 sets, daily range): BP systolic 104–118; BP diastolic 52–59; PULSE 100–130; RESP 16–20
[2017-01-28] MEDS: LEVALBUTEROL (NEB) 0.31 MG/3 ML AMP HHN SCH ×4 (02:00→20:08)
[2017-01-28] MEDS: PANTOPRAZOLE 40 MG INJ IV SCH (06:12)
[2017-01-28] MEDS: INSULIN ASPART [NOVOLOG] 3 ML PEN SC SCH ×4 (06:14→18:33)
[2017-01-28 07:53] LABS: BASOPHIL # 0.1 10^3/ul (0.0-0.1); BASOPHILS % 0.5 % (0.0-2.0); EOSINOPHILS # 0.1 10^3/ul (0.0-0.5); EOSINOPHILS % 0.8 % (0.0-7.0); HEMATOCRIT 43.6 % (37.0-47.0); LYMPHOCYTES # 1.5 10^3/ul (0.8-2.9); LYMPHOCYTES % 13.1 % (15.0-51.0); MEAN CORPUSCULAR HGB CONC 29.8 g/dl (32.0-37.0); MEAN CORPUSCULAR VOLUME 90.5 fl (82.0-101.0); MEAN PLATELET VOLUME 10.3 fl (7.4-10.4); MONOCYTE # 0.7 10^3/ul (0.3-0.9); MONOCYTES % 6.5 % (0.0-11.0); NEUTROPHIL # 8.7 10^3/ul (1.6-7.5); NEUTROPHILS % 77.1 % (39.0-77.0); NUCLEATED RED BLOOD CELLS% 0.3 /100WBC (0.0-0.0); PLATELET COUNT 146 10^3/UL (140-415); RED BLOOD COUNT 4.82 10^6/ul (4.20-5.40); WHITE BLOOD COUNT 11.3 10^3/ul (4.8-10.8)
[2017-01-28] MEDS: IPRATROPIUM (NEB) 0.5 MG/2.5 ML AMP HHN SCH ×3 (08:18→20:08)
--- NOTE | 2017-01-28 09:45 | CONS ---
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 culture the wound site and continue with vanco/zosyn 01/18 - g-tube wound cx is NGTD 01/19 - g-tube wound cx has scant CoNS, doubt this is significant 01/20 - await decision regarding g-tube re-insertion 01/21 - pt is too lethargic for swallow eval to be done, re-attempt today 01/22 - pt to get new g-tube placed today 01/23 - unable to get g-tube yesterday, re-scheduled for today 01/24 - pt got G-tube and TF restarted no abd pain 01/27 - looks benign and non tender 01/28 - new g-tube in place 2) choleycystitis pt has had a drain in place for this until she is ready for surgery will cx the fluid that is present 01/18 - AMBROSE drain cx has growth but too young continue with vanco/zosyn CT showed distending GB and gallstones but no fluid around the GB 01/19 - AMBROSE drain is growing regular klebsiella and MRSA due to kleb +ESBL in urine will change zosyn to merrem, to continue with vanco contact isolation ordered 01/20 - continue with vanco/merrem at present 01/22 - WBC almost back to normal day 10 of vanco and day 4/7 of merrem likely will change to po augmentin/bactrim in 3 days if WBC is ok 01/23 - no new recs 01/24 - continue with vanco/merrem thru 01/25 then change to po augmentin/bactrim 01/27 - due to elevated wbc, continue with vanco/merrem and re-cx the GB fluid 01/28 - wbc is better, cx from GB fluid is NGTD d/c vanco/merrem and start augmentin/bactrim 3) recent STEMI and hx of CABG 4) renal failure pt has very good creatinine but is still receiving dialysis she also has distended bladder by CT will get u/a and urine cx, nurse to straight cath vanco/zosyn should cover 5) sacral ulcer unable to see nurse to get picture 01/18 - no sign for infection according to notes 6) UTI 01/18 - pus is coming out from guevara urine cx is growing GNR continue with zosyn as WBC is decreasing 01/19 - urine cx has kleb +ESBL change zosyn to merrem merrem to be given after HD on dialysis days 01/20 - no change 01/21 - pt's urine output is picking up 01/22 - day 10/11 of merrem 01/24 - day 12/11 of merrem repeat u/a and urine cx, if neg can consider stopping isolation 01/27 - re-culture urine, on merrem 01/28 - urine cx is growing yeast d/c merrem and start diflucan 7) R pleural effusion with possible consolidation 01/18 - no phlegm production on vanco/zosyn at present will order nasal for MRSA pt to possibly get R thorancentesis 01/19 - pleural fluid does not appear to be infected with low WBC count and less than 50% PMN's will check LDH in serum to verify if exudative or transudative 01/20 - LDH results consistent with exudative process, cx remain NGTD 01/21 - pleural fluid cx remains NGTD 01/22 - pleural cx was neg 8) 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 01/20 - no sign of cellulitis around these toes 01/22 - stable 9) leukocytosis clinically pt looks better re culture urine, blood, and GB fluid maintain on vanco/merrem CXR was not impressive for new lung infection and her breathing is stable 01/28 - wbc is improved blood cx and wound cx (AMBROSE fluid) are NGTD urine is growing yeast and will start diflucan d/c vanco/merrem and start augmentin/bactrim, likely just for a few days Problems: Consultation Date/Type/Reason Admit Date/Time Jan 16, 2017 at 22:45 Initial Consult Date 01/17/17 Type of Consultation: ID Referring Provider: SHAMA LOPEZ MD 24 HR Interval Summary Free Text/Dictation spoke to nurse pt is doing well, got the new g-tube in place no V, D, tolerating TF no cough no abd pain Exam/Review of Systems Vital Signs Vitals Vital Signs Date Time Temp Pulse Resp B/P Pulse Ox O2 Delivery O2 Flow Rate FiO2 01/28/17 08:24 95 21 7/25/17 08:22 120 22 01/28/17 07:25 98.3 109/55 01/27/17 20:00 Nasal Cannula 2.0 Intake and Output 01/27/17 01/27/17 01/28/17 15:00 23:00 07:00 Intake Total 500 ml 780 ml 780 ml Output Total 3000 ml 400 ml 500 ml Balance -2500 ml 380 ml 280 ml Exam Constitutional: alert Head: normocephalic ENMT: mucosa pink and moist Respiratory: clear to auscultation Cardiovascular: regular rate and rhythm Gastrointestinal: non-tender, soft Results Result Diagram: 01/28/17 0630 01/26/17 0610 Results 24 hrs Laboratory Tests Test 01/27/17 12:06 01/27/17 17:08 01/28/17 00:10 01/28/17 06:10 Bedside Glucose 176 125 95 181 Test 01/28/17 06:30 White Blood Count 11.3 #H Red Blood Count 4.82 # Hemoglobin 13.0 # Hematocrit 43.6 # Mean Corpuscular Volume 90.5 Mean Corpuscular Hemoglobin 27.0 L Mean Corpuscular Hemoglobin Concent 29.8 L Red Cell Distribution Width 19.0 H Platelet Count 146 # Mean Platelet Volume 10.3 Neutrophils % 77.1 H Lymphocytes % 13.1 L Monocytes % 6.5 Eosinophils % 0.8 Basophils % 0.5 Nucleated Red Blood Cells % 0.3 H Neutrophils # 8.7 H Lymphocytes # 1.5 Monocytes # 0.7 Eosinophils # 0.1 Basophils # 0.1 Nucleated Red Blood Cells # 0.0 Medications Medications Current Medications Metoprolol Tartrate (Lopressor) 2.5 mg BID IV Last administered on 01/27/17 21 :00; Admin Dose 2.5 MG; Start 01/17/17 at 09:00 Miscellaneous Information 1 ea NOTE XX ; Start 01/16/17 at 23:30 Glucose (Glutose) 15 gm Q15M PRN PO DECREASED GLUCOSE; Start 01/16/17 at 23:30 Glucose (Glutose) 22.5 gm Q15M PRN PO DECREASED GLUCOSE; Start 01/16/17 at 23: 30 Dextrose (D50w Syringe) 25 ml Q15M PRN IV DECREASED GLUCOSE Last administered on 01/22/17 20:54; Admin Dose 25 ML; Start 01/16/17 at 23:30 Dextrose (D50w Syringe) 50 ml Q15M PRN IV DECREASED GLUCOSE; Start 01/16/17 at 23:30 Glucagon (Glucagen) 1 mg Q15M PRN IM DECREASED GLUCOSE; Start 01/16/17 at 23:30 Glucose (Glutose) 15 gm Q15M PRN BUCCAL DECREASED GLUCOSE; Start 01/16/17 at 23 :30 Latanoprost (Xalatan) 1 drop HS BOTH EYES Last administered on 01/27/17 21:00 ; Admin Dose 1 DROP; Start 01/17/17 at 21:00 Epoetin Raj (Epogen (Esrd)) 10,000 units TuThSa@17 SC Last administered on 17:30; Admin Dose 10,000 UNITS; Start 01/18/17 at 17:00 Ondansetron HCl (Zofran Inj) 4 mg Q6H PRN IV NAUSEA AND/OR VOMITING; Start at 00:30 Collagenase (Santyl) 1 applic DAILY TOP Last administered on 01/27/17 17:17; Admin Dose 1 APPLIC; Start 01/18/17 at 16:00 Collagenase 1 applic 1 applic PRN PRN TOP WOUND CARE; Start 01/18/17 at 15:00 Meropenem/Sodium Chloride (Merrem 500mg/50 ml(Pmx)) 50 ml @ 100 mls/hr DAILY@ 20 IVPB Last administered on 01/27/17 20:00; Admin Dose 100 MLS/HR; Start at 20:00 Enoxaparin Sodium (Lovenox) 30 mg DAILY SC Last administered on 01/27/17 08:57 ; Admin Dose 30 MG; Start 01/20/17 at 09:00 Bisacodyl (Dulcolax Supp) 10 mg BID PRN [place] CONSTIPATION; Start 01/20/17 at 17: 00 Sodium Biphosphate/ Sodium Phosphate (Fleet Enema) 133 ml BID PRN [place] CONSTIPATION; Start 01/20/17 at 17:00 Neomycin/ Polymyxin/ Bacitracin 1 applic 1 applic TID TOP Last administered on 01/27/17 21:00; Admin Dose 1 APPLIC; Start 01/21/17 at 21:00 Vancomycin HCl (Vancocin) 250 ml @ 125 mls/hr Q96H IVPB Last administered on 22:51; Admin Dose 125 MLS/HR; Start 01/22/17 at 22:00 Morphine Sulfate (morphine) 2 mg Q4H PRN IV PAIN Last administered on 02:02; Admin Dose 2 MG; Start 01/22/17 at 16:00 Acetaminophen (Tylenol Tab) 650 mg Q6H PRN PO PAIN AND OR ELEVATED TEMP Last administered on 01/26/17 09:08; Admin Dose 650 MG; Start 01/23/17 at 19:30 Insulin Glargine (Lantus) 30 unit DAILY@08 SC Last administered on 01/27/17 08 :58; Admin Dose 30 UNIT; Start 01/25/17 at 08:00 Ferrous Sulfate (Feosol Liquid Cup) 300 mg DAILY GTB Last administered on 08:55; Admin Dose 300 MG; Start 01/24/17 at 16:30 Insulin Aspart (Novolog Insulin Pen) NOVOLOG *MODERATE* ALGORI... Q6 SC Last administered on 01/28/17 06:14; Admin Dose 4 UNIT; Start 01/25/17 at 00:00 Pantoprazole (Protonix Iv) 40 mg DAILY@06 IV Last administered on 01/28/17 06: 12; Admin Dose 40 MG; Start 01/26/17 at 06:00 TR GOODEN MD Jan 28, 2017 09:45
[2017-01-28] MEDS: FERROUS SULFATE 60 MG/ML 5ML CUP GTB SCH (09:47)
[2017-01-28] MEDS: METOPROLOL 5 MG INJ IV SCH (09:47)
[2017-01-28 09:53] LABS: ALBUMIN 2.1 g/dl (3.3-4.9); ALBUMIN/GLOBULIN RATIO 0.67; BILIRUBIN,INDIRECT 0.1 mg/dl (0-1.1); BILIRUBIN,TOTAL 0.1 mg/dl (0.2-1.3); CALCIUM 7.9 mg/dl (8.4-10.2); CREATININE 1.01 mg/dl (0.44-1.00); POTASSIUM 4.2 mmol/L (3.5-5.1); TOTAL PROTEIN 5.2 g/dl (6.1-8.1)
[2017-01-28] MEDS: ENOXAPARIN 30 MG/0.3 ML SYG SC SCH (09:55)
[2017-01-28] MEDS: COLLAGENASE 30 GM TUBE TOP SCH (09:56)
[2017-01-28] MEDS: NEOMYC/POLYMYX/BACIT 30 GM OINT TOP SCH ×3 (09:56→21:06)
[2017-01-28] MEDS: INSULIN GLARGINE [LANtus] 3 ML PEN SC SCH (09:57)
--- NOTE | 2017-01-28 10:08 | PN ---
Date/Time of Note Date/Time of Note DATE: 01/28/17 TIME: 09:54 Assessment/Plan VTE Prophylaxis VTE Prophylaxis Intervention: LMWH Lines/Catheters IV Catheter Type (from Nrsg): PICC Line Urinary Cath still in place: Yes Assessment/Plan Assessment/Plan 01/28 hgb jump 7.7 to 13. yeast in urine -diflucan started wbc lower, pulse jumped to 120's 01/27 elevated wbc lower hgb, ct brain neg 01/[address], feedings started , belly pain improved, scheduled for dialysis 01/23 hgb by picc low again. will repeat draw by arm and if hgb<8.0 will transfuse. gtube rescheduled to today. 01/22 hgb redraw and is higher 8.9. dialysis done today, awaiting gtube reinsertion. 01/21 surg reports ok for gtube replace. gi reports will plan to place in am. cr increased 1.3 to 1.4. choking on apple sauce yesterday. 01/20 dialysis today, low sugar overall bad day today. 01/19gi- awaiting consult for replacement of g-tube. pt not appear to be able to take po nutrition appropriately. GI- g-tube dislodged causing cellulitis of the abd wall. 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 -id following and pt on vanco/zosyn---now changed due to klebsiella to vanco/ merrem . vanco merrem to be completed on 01/25, then will be on ngt augmentin/ bactrim. due to elevated wbc iv abx cont. 01/28 wbc improved abx changed to gtube aug/wilfredo. -gi replace g-tube 01/23. feeding restarted 01/24. -swallow study reordered. pt been more awake. renal- pt producing some urine. renal following and questioning if functionality has improved. fluid overloaded, being diuresed. dialysis restarted. epogen given. -uti now off merrem and starting diflucan pulm has a right lung infiltrate and mod effusion. pulm following tapped for 1 liter removed. abx changed. been stable dm- on sliding scale. no nutrition yet, sugar running low- lantis decreased. d5 running. since feeding has been restarted the accu checks to be expected to go up and will need to increase insulin appropriately. will increase lantus back to 30 u, which is still lower than usually taking as out pt. cv- h/o arrest, stent MN, cards following. b-danyel restarted. stable cholecystostomy- surg following and drain changed and growing klebsiella. on abx. doing well. anemia- discussed with renal if transfusion is necessary. pt given epogen. renal to watch. low in FE. awaiting it g-tube to be reinserted or other source for feeding. hgb better 8.2. today cbc drawn from picc and the hgb 7.4. redraw from arm and 8.9. doing fine. lower today need to draw from arm. sudden jump inhgb 13- unclear if this is a true reading. tachycardia- on same b-danyel, not appear to have an acute change. will have cards re-eval. poor iv access. picc in place. Subjective 24 Hr Interval Summary Free Text/Dictation sudden change of cbc hgb jumped up to 13 and wbc almost to perfect. swallow study ordered. pulse jumped up in past 24 hr 120's Exam/Review of Systems Vital Signs Vitals Vital Signs Date Time Temp Pulse Resp B/P Pulse Ox O2 Delivery O2 Flow Rate FiO2 01/28/17 08:24 95 21 01/28/17 08:22 120 22 01/28/17 07:25 98.3 109/55 01/27/17 20:00 Nasal Cannula 2.0 Intake and Output 01/27/17 01/27/17 01/28/17 15:00 23:00 07:00 Intake Total 500 ml 780 ml 780 ml Output Total 3000 ml 400 ml 500 ml Balance -2500 ml 380 ml 280 ml Results Result Diagram: 01/28/17 0630 01/26/17 0610 Results 24 hrs Laboratory Tests Test 01/27/17 12:06 01/27/17 17:08 01/28/17 00:10 01/28/17 06:10 Bedside Glucose 176 125 95 181 Test 01/28/17 06:30 White Blood Count 11.3 #H Red Blood Count 4.82 # Hemoglobin 13.0 # Hematocrit 43.6 # Mean Corpuscular Volume 90.5 Mean Corpuscular Hemoglobin 27.0 L Mean Corpuscular Hemoglobin Concent 29.8 L Red Cell Distribution Width 19.0 H Platelet Count 146 # Mean Platelet Volume 10.3 Neutrophils % 77.1 H Lymphocytes % 13.1 L Monocytes % 6.5 Eosinophils % 0.8 Basophils % 0.5 Nucleated Red Blood Cells % 0.3 H Neutrophils # 8.7 H Lymphocytes # 1.5 Monocytes # 0.7 Eosinophils # 0.1 Basophils # 0.1 Nucleated Red Blood Cells # 0.0 Medications Medications Current Medications Metoprolol Tartrate (Lopressor) 2.5 mg BID IV Last administered on 01/27/17 21 :00; Admin Dose 2.5 MG; Start 01/17/17 at 09:00 Miscellaneous Information 1 ea NOTE XX ; Start 01/16/17 at 23:30 Glucose (Glutose) 15 gm Q15M PRN PO DECREASED GLUCOSE; Start 01/16/17 at 23:30 Glucose (Glutose) 22.5 gm Q15M PRN PO DECREASED GLUCOSE; Start 01/16/17 at 23: 30 Dextrose (D50w Syringe) 25 ml Q15M PRN IV DECREASED GLUCOSE Last administered on 01/22/17 20:54; Admin Dose 25 ML; Start 01/16/17 at 23:30 Dextrose (D50w Syringe) 50 ml Q15M PRN IV DECREASED GLUCOSE; Start 01/16/17 at 23:30 Glucagon (Glucagen) 1 mg Q15M PRN IM DECREASED GLUCOSE; Start 01/16/17 at 23:30 Glucose (Glutose) 15 gm Q15M PRN BUCCAL DECREASED GLUCOSE; Start 01/16/17 at 23 :30 Latanoprost (Xalatan) 1 drop HS BOTH EYES Last administered on 01/27/17 21:00 ; Admin Dose 1 DROP; Start 01/17/17 at 21:00 Epoetin Raj (Epogen (Esrd)) 10,000 units TuThSa@17 SC Last administered on 17:30; Admin Dose 10,000 UNITS; Start 01/18/17 at 17:00 Ondansetron HCl (Zofran Inj) 4 mg Q6H PRN IV NAUSEA AND/OR VOMITING; Start at 00:30 Collagenase (Santyl) 1 applic DAILY TOP Last administered on 01/27/17 17:17; Admin Dose 1 APPLIC; Start 01/18/17 at 16:00 Collagenase (Santyl) 1 applic PRN PRN TOP WOUND CARE; Start 01/18/17 at 15:00 Enoxaparin Sodium (Lovenox) 30 mg DAILY SC Last administered on 01/27/17 08:57 ; Admin Dose 30 MG; Start 01/20/17 at 09:00 Bisacodyl (Dulcolax Supp) 10 mg BID PRN [place] CONSTIPATION; Start 01/20/17 at 17: 00 Sodium Biphosphate/ Sodium Phosphate (Fleet Enema) 133 ml BID PRN [place] CONSTIPATION; Start 01/20/17 at 17:00 Neomycin/ Polymyxin/ Bacitracin (Neosporin Topical Oint) 1 applic TID TOP Last administered on 01/27/17 21:00; Admin Dose 1 APPLIC; Start 01/21/17 at 21:00 Morphine Sulfate (morphine) 2 mg Q4H PRN IV PAIN Last administered on 02:02; Admin Dose 2 MG; Start 01/22/17 at 16:00 Acetaminophen (Tylenol Tab) 650 mg Q6H PRN PO PAIN AND OR ELEVATED TEMP Last administered on 01/26/17 09:08; Admin Dose 650 MG; Start 01/23/17 at 19:30 Insulin Glargine (Lantus) 30 unit DAILY@08 SC Last administered on 01/27/17 08 :58; Admin Dose 30 UNIT; Start 01/25/17 at 08:00 Ferrous Sulfate (Feosol Liquid Cup) 300 mg DAILY GTB Last administered on 08:55; Admin Dose 300 MG; Start 01/24/17 at 16:30 Insulin Aspart (Novolog Insulin Pen) NOVOLOG *MODERATE* ALGORI... Q6 SC Last administered on 01/28/17 06:14; Admin Dose 4 UNIT; Start 01/25/17 at 00:00 Pantoprazole (Protonix Iv) 40 mg DAILY@06 IV Last administered on 01/28/17 06: 12; Admin Dose 40 MG; Start 01/26/17 at 06:00 Fluconazole (Diflucan) 100 mg DAILY NGT ; Start 01/28/17 at 10:00 Amoxicillin/ Clavulanate Potassium (Augmentin) 875 mg BID GTB ; Start 01/28/17 at 21:00 Trimethoprim/ Sulfamethoxazole (Bactrim (Ds)) 1 tab BID GTB ; Start 01/28/17 at 21:00 SHAW SRINIVASAN MD Jan 28, 2017 10:05
[2017-01-28] MEDS: morphine 2 MG INJ IV PRN ×2 (11:01→12:00)
[2017-01-28] MEDS: FLUCONAZOLE 100 MG TAB NGT SCH (11:02)
--- NOTE | 2017-01-28 11:20 | CONS ---
Date/Time of Note Date/Time of Note DATE: 01/28/17 TIME: 11:16 Consult Date/Type/Reason Admit Date/Time Jan 16, 2017 at 22:45 Initial Consult Date 01/18/17 Type of Consultation: Pulm Ordering Provider: SHAMA LOPEZ MD Subjective Comfortable no new events. Objective Vital Signs Date Time Temp Pulse Resp B/P Pulse Ox O2 Delivery O2 Flow Rate FiO2 01/28/17 08:24 95 21 01/28/17 08:22 120 22 01/28/17 07:25 98.3 109/55 01/27/17 20:00 Nasal Cannula 2.0 Intake and Output 01/27/17 01/27/17 01/28/17 15:00 23:00 07:00 Intake Total 500 ml 780 ml 780 ml Output Total 3000 ml 400 ml 500 ml Balance -2500 ml 380 ml 280 ml Exam GENERAL: Elderly lady chronically ill comfortable at rest VITAL SIGNS: per chart NECK: Supple. No JVD or lymphadenopathy. CARDIAC EXAM: S1, S2. No added sounds or murmurs. CHEST: clear bilaterally, No added sounds, rales or wheezes ABDOMEN: Soft, nontender. No guarding or rebound. EXTREMITIES: No cyanosis, clubbing or edema +2 NEUROLOGIC: Significant neuromuscular weakness Results/Medications Result Diagram: 01/28/17 0630 01/28/17 0630 Results 24 hrs Laboratory Tests Test 01/27/17 12:06 01/27/17 17:08 01/28/17 00:10 01/28/17 06:10 Bedside Glucose 176 125 95 181 Test 01/28/17 06:30 White Blood Count 11.3 #H Red Blood Count 4.82 # Hemoglobin 13.0 # Hematocrit 43.6 # Mean Corpuscular Volume 90.5 Mean Corpuscular Hemoglobin 27.0 L Mean Corpuscular Hemoglobin Concent 29.8 L Red Cell Distribution Width 19.0 H Platelet Count 146 # Mean Platelet Volume 10.3 Neutrophils % 77.1 H Lymphocytes % 13.1 L Monocytes % 6.5 Eosinophils % 0.8 Basophils % 0.5 Nucleated Red Blood Cells % 0.3 H Neutrophils # 8.7 H Lymphocytes # 1.5 Monocytes # 0.7 Eosinophils # 0.1 Basophils # 0.1 Nucleated Red Blood Cells # 0.0 Sodium Level 143 Potassium Level 4.2 Chloride Level 102 Carbon Dioxide Level 29 Anion Gap 16 Blood Urea Nitrogen 55 H Creatinine 1.01 H Glucose Level 135 Calcium Level 7.9 L Total Bilirubin 0.1 L Direct Bilirubin 0.00 Indirect Bilirubin 0.1 Aspartate Amino Transf (AST/SGOT) 38 Alanine Aminotransferase (ALT/SGPT) 27 Alkaline Phosphatase 188 H Total Protein 5.2 L Albumin 2.1 L Globulin 3.10 Albumin/Globulin Ratio 0.67 Medications Current Medications Metoprolol Tartrate (Lopressor) 2.5 mg BID IV Last administered on 01/28/17 09 :47; Admin Dose 2.5 MG; Start 01/17/17 at 09:00 Miscellaneous Information 1 ea NOTE XX ; Start 01/16/17 at 23:30 Glucose (Glutose) 15 gm Q15M PRN PO DECREASED GLUCOSE; Start 01/16/17 at 23:30 Glucose (Glutose) 22.5 gm Q15M PRN PO DECREASED GLUCOSE; Start 01/16/17 at 23: 30 Dextrose (D50w Syringe) 25 ml Q15M PRN IV DECREASED GLUCOSE Last administered on 01/22/17 20:54; Admin Dose 25 ML; Start 01/16/17 at 23:30 Dextrose (D50w Syringe) 50 ml Q15M PRN IV DECREASED GLUCOSE; Start 01/16/17 at 23:30 Glucagon (Glucagen) 1 mg Q15M PRN IM DECREASED GLUCOSE; Start 01/16/17 at 23:30 Glucose (Glutose) 15 gm Q15M PRN BUCCAL DECREASED GLUCOSE; Start 01/16/17 at 23 :30 Latanoprost (Xalatan) 1 drop HS BOTH EYES Last administered on 01/27/17 21:00 ; Admin Dose 1 DROP; Start 01/17/17 at 21:00 Epoetin Raj (Epogen (Esrd)) 10,000 units TuThSa@17 SC Last administered on 17:30; Admin Dose 10,000 UNITS; Start 01/18/17 at 17:00 Ondansetron HCl (Zofran Inj) 4 mg Q6H PRN IV NAUSEA AND/OR VOMITING; Start at 00:30 Collagenase (Santyl) 1 applic DAILY TOP Last administered on 01/28/17 09:56; Admin Dose 1 APPLIC; Start 01/18/17 at 16:00 Collagenase (Santyl) 1 applic PRN PRN TOP WOUND CARE; Start 01/18/17 at 15:00 Enoxaparin Sodium (Lovenox) 30 mg DAILY SC Last administered on 01/28/17 09:55 ; Admin Dose 30 MG; Start 01/20/17 at 09:00 Bisacodyl (Dulcolax Supp) 10 mg BID PRN [place] CONSTIPATION; Start 01/20/17 at 17: 00 Sodium Biphosphate/ Sodium Phosphate (Fleet Enema) 133 ml BID PRN [place] CONSTIPATION; Start 01/20/17 at 17:00 Neomycin/ Polymyxin/ Bacitracin (Neosporin Topical Oint) 1 applic TID TOP Last administered on 01/28/17 09:56; Admin Dose 1 APPLIC; Start 01/21/17 at 21:00 Morphine Sulfate (morphine) 2 mg Q4H PRN IV PAIN Last administered on 11:01; Admin Dose 2 MG; Start 01/22/17 at 16:00 Acetaminophen (Tylenol Tab) 650 mg Q6H PRN PO PAIN AND OR ELEVATED TEMP Last administered on 01/26/17 09:08; Admin Dose 650 MG; Start 01/23/17 at 19:30 Insulin Glargine (Lantus) 30 unit DAILY@08 SC Last administered on 01/28/17 09 :57; Admin Dose 30 UNIT; Start 01/25/17 at 08:00 Ferrous Sulfate (Feosol Liquid Cup) 300 mg DAILY GTB Last administered on 09:47; Admin Dose 300 MG; Start 01/24/17 at 16:30 Insulin Aspart (Novolog Insulin Pen) NOVOLOG *MODERATE* ALGORI... Q6 SC Last administered on 01/28/17 06:14; Admin Dose 4 UNIT; Start 01/25/17 at 00:00 Pantoprazole (Protonix Iv) 40 mg DAILY@06 IV Last administered on 01/28/17 06: 12; Admin Dose 40 MG; Start 01/26/17 at 06:00 Fluconazole (Diflucan) 100 mg DAILY NGT Last administered on 01/28/17 11:02; Admin Dose 100 MG; Start 01/28/17 at 10:00 Amoxicillin/ Clavulanate Potassium (Augmentin) 875 mg BID GTB ; Start 01/28/17 at 21:00 Trimethoprim/ Sulfamethoxazole (Bactrim (Ds)) 1 tab BID GTB ; Start 01/28/17 at 21:00 Assessment/Plan Chief Complaint/Hosp Course Assessment 1. Severe sepsis likely polymicrobial 2. Status post thoracentesis pleural fluid suggestive of transudative process given low protein however elevated LDH noted. No malignant cells noted 3. End-stage renal failure on hemodialysis 4. History ST elevation [place] 5. Recent recurrent hypoxemic respiratory failure 6. Dysphagia G-tube has been dislodged. Patient has significant aspiration risk 7. Anemia likely of chronic disease 8. tachycardia noted, ? sepsis Plan 1. Broad-spectrum antibiotics per infectious diseases 2. Supplemental O2 as needed 3. Wound care 4. Pleural fluid studies noted 5. Aspiration precautions 6. Tube feeding as tolerated 7. Surgical recommendations 8. Continues hemodialysis 3 times a week. Problems: ZANDRA ROBISON MD, [facility] Jan 28, 2017 11:20
[2017-01-28] MEDS: ACETAMINOPHEN 650MG/20.3ML CUP GTB PRN (11:51)
--- NOTE | 2017-01-28 12:49 | GILP ---
DATE OF PROCEDURE: PREOPERATIVE DIAGNOSIS: Patient presenting with history of difficulty in swallowing. She had a gastrostomy tube in place which migrated and fell out. At this time, the procedure is performed to create access for long-term nutritional support. POSTOPERATIVE DIAGNOSIS: Patient presenting with history of difficulty in swallowing. She had a gastrostomy tube in place which migrated and fell out. At this time, the procedure is performed to create access for long-term nutritional support. PROCEDURE PERFORMED: 1. Esophagogastroduodenoscopy. 2. Percutaneous endoscopic gastrostomy tube placement. SURGEON: Jignesh Helm MD DESCRIPTION OF PROCEDURE: After the informed written consent was obtained, the patient in the supine position. Intravenous anesthesia was given by HOROLOGIST. When the patient became somnolent, the Olympus video upper endoscope was introduced into the oropharynx and then into the esophagus. The esophagus appeared normal. The stomach appeared normal and overall, the gastrostomy opening site is noted. Duodenum appeared normal. The endoscope at this time was withdrawn to the level of the gastric cavity. The anterior abdominal wall was prepared with Betadine and alcohol. The old gastrostomy site is noted and after clearing all the crust and clots from the old gastrostomy site, a guidewire was introduced through this opening and it was found to be entering into the gastric cavity. This guidewire was capped with a polypectomy snare and then brought out through the mouth along with the endoscope. To this end of the guidewire, a number 20 microvasive G-tube was tied in a loop fashion and it was brought out through the abdominal wall incision. At this time, the retention bumper was placed over the G-tube close to the skin. The upper end of the gastrostomy tube was cut, the adapter was placed, and the procedure was terminated. PLAN: Recommend start the G-tube feeding in a.m. Dictated By: Jignesh Helm MD /sari/jong /Document#: [id number] CC: Jessica Castillo MD;*EndCC*
--- NOTE | 2017-01-28 13:43 | CONS ---
Date/Time of Note Date/Time of Note DATE: 01/28/17 TIME: 13:32 Assessment/Plan Assessment/Plan Chief Complaint/Hosp Course Impression: 1. Renal failure. She is had dry ultrafiltration yesterday with 2500 cc of fluid removed . She continues to have flank edema. She remains quite weak. Her Serum creatinine is 1.0 and BUN is 55 . She has been getting ultrafiltration and dialysis because of her fluid overload and inability to remove enough fluid with diuretics .I canceled dialysis today because of low serum creatinine and tachycardia . She did have a fever today which could be responsible for her fevar . 2. Multiple medical problems including insulin-dependent diabetes mellitus, atherosclerotic heart disease with acute SD and status post cardiac arrest with acute renal failure and anoxic encephalopathy, congestive heart failure, anemia of chronic disease, malnutrition, dysphagia requiring PEG placement , urinary tract infection , acute cholecystitis with drainage tube in place, peripheral vascular disease, history of her respiratory failure, history of acute cholecystitis with gallbladder drainage tube in place . She was admitted now because her gastric feeding tube dislodged and some of her feeding went into her abdominal cavity. She was thought to be septic at the time of admission. Plan: 1. next dialysis to be determined . will check labs in am . 2. Continue Epogen 5. I did speak to her regarding her current condition and advanced directives. I asked him to think about whether he would want her reintubated should that be needed . She had originally voiced the opinion that she did not want to be intubated. However this may have changed. She has had a rather stormy medical course over the last 4 months. She has shown very little improvement neurologically . I told the that we would continue everything else that we are doing including dialysis . Problems: Consultation Date/Type/Reason Admit Date/Time Jan 16, 2017 at 22:45 Initial Consult Date 01/18/17 Type of Consultation: renal Referring Provider: SHAMA LOPEZ MD 24 HR Interval Summary Free Text/Dictation She is awake and responsive today . She had ultrafiltration yesterday with 2500 cc of fluid taken off . Exam/Review of Systems Vital Signs Vitals Vital Signs Date Time Temp Pulse Resp B/P Pulse Ox O2 Delivery O2 Flow Rate FiO2 01/28/17 12:11 107 01/28/17 11:26 101.0 16 104/55 01/28/17 08:24 95 21 01/27/17 20:00 Nasal Cannula 2.0 Intake and Output 01/27/17 01/27/17 01/28/17 15:00 23:00 07:00 Intake Total 500 ml 780 ml 780 ml Output Total 3000 ml 400 ml 500 ml Balance -2500 ml 380 ml 280 ml Exam She does have flank edema . Constitutional: alert, frail, obese Psych: depression Eyes: EOMI Neck: supple Respiratory: clear to auscultation, diminished breath sounds Cardiovascular: edema, regular rate and rhythm Gastrointestinal: distended, soft, tender Extremities: edema Results Result Diagram: 01/28/17 0630 01/28/17 0630 Results 24 hrs Laboratory Tests Test 01/27/17 17:08 01/28/17 00:10 01/28/17 06:10 01/28/17 06:30 Bedside Glucose 125 95 181 White Blood Count 11.3 #H Red Blood Count 4.82 # Hemoglobin 13.0 # Hematocrit 43.6 # Mean Corpuscular Volume 90.5 Mean Corpuscular Hemoglobin 27.0 L Mean Corpuscular Hemoglobin Concent 29.8 L Red Cell Distribution Width 19.0 H Platelet Count 146 # Mean Platelet Volume 10.3 Neutrophils % 77.1 H Lymphocytes % 13.1 L Monocytes % 6.5 Eosinophils % 0.8 Basophils % 0.5 Nucleated Red Blood Cells % 0.3 H Neutrophils # 8.7 H Lymphocytes # 1.5 Monocytes # 0.7 Eosinophils # 0.1 Basophils # 0.1 Nucleated Red Blood Cells # 0.0 Sodium Level 143 Potassium Level 4.2 Chloride Level 102 Carbon Dioxide Level 29 Anion Gap 16 Blood Urea Nitrogen 55 H Creatinine 1.01 H Glucose Level 135 Calcium Level 7.9 L Total Bilirubin 0.1 L Direct Bilirubin 0.00 Indirect Bilirubin 0.1 Aspartate Amino Transf (AST/SGOT) 38 Alanine Aminotransferase (ALT/SGPT) 27 Alkaline Phosphatase 188 H Total Protein 5.2 L Albumin 2.1 L Globulin 3.10 Albumin/Globulin Ratio 0.67 Test 01/28/17 11:52 Bedside Glucose 159 Medications Medications Current Medications Metoprolol Tartrate (Lopressor) 2.5 mg BID IV Last administered on 01/28/17t 09 :47; Admin Dose 2.5 MG; Start 01/17/17 at 09:00 Miscellaneous Information 1 ea NOTE XX ; Start 01/16/17 at 23:30 Glucose (Glutose) 15 gm Q15M PRN PO DECREASED GLUCOSE; Start 01/16/17 at 23:30 Glucose (Glutose) 22.5 gm Q15M PRN PO DECREASED GLUCOSE; Start 01/16/17 at 23: 30 Dextrose (D50w Syringe) 25 ml Q15M PRN IV DECREASED GLUCOSE Last administered on 01/22/17 20:54; Admin Dose 25 ML; Start 01/16/17 at 23:30 Dextrose (D50w Syringe) 50 ml Q15M PRN IV DECREASED GLUCOSE; Start 01/16/17 at 23:30 Glucagon (Glucagen) 1 mg Q15M PRN IM DECREASED GLUCOSE; Start 01/16/17 at 23:30 Glucose (Glutose) 15 gm Q15M PRN BUCCAL DECREASED GLUCOSE; Start 01/16/17 at 23 :30 Latanoprost (Xalatan) 1 drop HS BOTH EYES Last administered on 01/27/17 21:00 ; Admin Dose 1 DROP; Start 01/17/17 at 21:00 Epoetin Raj (Epogen (Esrd)) 10,000 units TuThSa@17 SC Last administered on 17:30; Admin Dose 10,000 UNITS; Start 01/18/17 at 17:00 Ondansetron HCl (Zofran Inj) 4 mg Q6H PRN IV NAUSEA AND/OR VOMITING; Start at 00:30 Collagenase (Santyl) 1 applic DAILY TOP Last administered on 01/28/17 09:56; Admin Dose 1 APPLIC; Start 01/18/17 at 16:00 Collagenase (Santyl) 1 applic PRN PRN TOP WOUND CARE; Start 01/18/17 at 15:00 Enoxaparin Sodium (Lovenox) 30 mg DAILY SC Last administered on 01/28/17 09:55 ; Admin Dose 30 MG; Start 01/20/17 at 09:00 Bisacodyl (Dulcolax Supp) 10 mg BID PRN [place] CONSTIPATION; Start 01/20/17 at 17: 00 Sodium Biphosphate/ Sodium Phosphate (Fleet Enema) 133 ml BID PRN [place] CONSTIPATION; Start 01/20/17 at 17:00 Neomycin/ Polymyxin/ Bacitracin (Neosporin Topical Oint) 1 applic TID TOP Last administered on 01/28/17 13:14; Admin Dose 1 APPLIC; Start 01/21/17 at 21:00 Morphine Sulfate (morphine) 2 mg Q4H PRN IV PAIN Last administered on 11:01; Admin Dose 2 MG; Start 01/22/17 at 16:00 Insulin Glargine (Lantus) 30 unit DAILY@08 SC Last administered on 01/28/17 09 :57; Admin Dose 30 UNIT; Start 01/25/17 at 08:00 Ferrous Sulfate (Feosol Liquid Cup) 300 mg DAILY GTB Last administered on 09:47; Admin Dose 300 MG; Start 01/24/17 at 16:30 Insulin Aspart (Novolog Insulin Pen) NOVOLOG *MODERATE* ALGORI... Q6 SC Last administered on 01/28/17 11:58; Admin Dose 2 UNIT; Start 01/25/17 at 00:00 Pantoprazole (Protonix Iv) 40 mg DAILY@06 IV Last administered on 01/28/17 06: 12; Admin Dose 40 MG; Start 01/26/17 at 06:00 Fluconazole (Diflucan) 100 mg DAILY NGT Last administered on 01/28/17 11:02; Admin Dose 100 MG; Start 01/28/17 at 10:00 Amoxicillin/ Clavulanate Potassium (Augmentin) 875 mg BID GTB ; Start 01/28/17 at 21:00 Trimethoprim/ Sulfamethoxazole (Bactrim (Ds)) 1 tab BID GTB ; Start 01/28/17 at 21:00 Acetaminophen (Tylenol Liquid) 650 mg Q6H PRN GTB PAIN AND OR ELEVATED TEMP Last administered on 01/28/17 11:51; Admin Dose 650 MG; Start 01/28/17 at 13:30 DAMIR MARTINEZ MD Jan 28, 2017 13:43
[2017-01-28] MEDS: EPOETIN 10000 UNITS/1 ML INJ (ESRD) SC SCH (17:00)
[2017-01-28] MEDS: TRIMETHOPRIM/SULFAMETHOX (DS) TAB GTB SCH (21:04)
[2017-01-28] MEDS: AMOXICILLIN/CLAV 875 MG TAB GTB SCH (21:04)
[2017-01-28] MEDS: METOPROLOL 50 MG TAB GTB SCH (21:05)
[2017-01-28] MEDS: LATANOPROST 0.005% 2.5 ML OPH BOTH EYES SCH (21:06)
[2017-01-29] VITALS (13 sets, daily range): BP systolic 98–116; BP diastolic 47–58; PULSE 81–108; RESP 16–20
[2017-01-29] MEDS: INSULIN ASPART [NOVOLOG] 3 ML PEN SC SCH ×4 (01:46→18:41)
[2017-01-29] MEDS: LEVALBUTEROL (NEB) 0.31 MG/3 ML AMP HHN SCH ×4 (02:00→20:21)
[2017-01-29] MEDS: PANTOPRAZOLE 40 MG INJ IV SCH (05:54)
[2017-01-29 08:12] LABS: BASOPHILS % 0.3 % (0.0-2.0); EOSINOPHILS # 0.2 10^3/ul (0.0-0.5); EOSINOPHILS % 1.5 % (0.0-7.0); HEMATOCRIT 26.1 % (37.0-47.0); HEMOGLOBIN 7.7 g/dl (12.0-16.0); LYMPHOCYTES % 14.8 % (15.0-51.0); MEAN CORPUSCULAR HEMOGLOBIN 27.1 pg (29.0-33.0); MEAN CORPUSCULAR HGB CONC 29.5 g/dl (32.0-37.0); MEAN CORPUSCULAR VOLUME 91.9 fl (82.0-101.0); MEAN PLATELET VOLUME 9.8 fl (7.4-10.4); MONOCYTE # 1.1 10^3/ul (0.3-0.9); MONOCYTES % 8.4 % (0.0-11.0); NEUTROPHIL # 9.8 10^3/ul (1.6-7.5); NEUTROPHILS % 73.6 % (39.0-77.0); PLATELET COUNT 258 10^3/UL (140-415); RED BLOOD COUNT 2.84 10^6/ul (4.20-5.40); RED CELL DISTRIBUTION WIDTH 18.6 % (11.5-14.5); WHITE BLOOD COUNT 13.3 10^3/ul (4.8-10.8)
--- NOTE | 2017-01-29 08:31 | CONS ---
Date/Time of Note Date/Time of Note DATE: 01/29/17 TIME: 08:25 Assessment/Plan Assessment/Plan Chief Complaint/Hosp Course Impression: 1. Renal failure. I canceled hemodialysis treatment yesterday because she was tachycardic. Her her serum creatinine yesterday was 1.0 with a BUN of 55. She continues to have flank edema. She remains quite weak . She does have urine output which makes her nonoliguric. I will check her labs this morning to see whether she needs dialysis. 2. Multiple medical problems including insulin-dependent diabetes mellitus, atherosclerotic heart disease with acute LA and status post cardiac arrest with acute renal failure and anoxic encephalopathy, congestive heart failure, anemia of chronic disease, malnutrition, dysphagia requiring PEG placement , urinary tract infection , acute cholecystitis with drainage tube in place, peripheral vascular disease, history of her respiratory failure, history of acute cholecystitis with gallbladder drainage tube in place . She was admitted now because her gastric feeding tube dislodged and some of her feeding went into her abdominal cavity. She was thought to be septic at the time of admission. 3. She does have abdominal pain and abdominal tenderness today. Plan: 1. next dialysis to be determined . will check labs today. 2. Continue Epogen 5. I did speak to her regarding her current condition and advanced directives. I asked him to think about whether he would want her reintubated should that be needed . She had originally voiced the opinion that she did not want to be intubated. However this may have changed. She has had a rather stormy medical course over the last 4 months. She has shown very little improvement neurologically . I told the that we would continue everything else that we are doing including dialysis . Problems: Consultation Date/Type/Reason Admit Date/Time Jan 16, 2017 at 22:45 Initial Consult Date 01/18/17 Type of Consultation: renal Referring Provider: SHAMA LOPEZ MD 24 HR Interval Summary Free Text/Dictation She is awake. She is having abdominal pain. She had 650 cc of urine output yesterday. Exam/Review of Systems Vital Signs Vitals Vital Signs Date Time Temp Pulse Resp B/P Pulse Ox O2 Delivery O2 Flow Rate FiO2 01/29/17 08:05 108 01/29/17 07:40 98.2 20 110/53 93 01/28/17 20:10 21 01/28/17 20:00 Nasal Cannula 2.0 Intake and Output 01/28/17 01/28/17 01/29/17 15:00 23:00 07:00 Intake Total 570 ml 630 ml Output Total 300 ml 350 ml Balance 270 ml 280 ml Exam Constitutional: alert, frail, obese Respiratory: clear to auscultation, diminished breath sounds Cardiovascular: edema, regular rate and rhythm Gastrointestinal: soft, tender Extremities: edema Results Result Diagram: 01/29/17 0747 01/28/17 0630 Results 24 hrs Laboratory Tests Test 01/28/17 11:52 01/28/17 17:52 01/29/17 01:39 01/29/17 05:53 Bedside Glucose 159 163 245 H 176 Test 01/29/17 07:47 White Blood Count 13.3 H Red Blood Count 2.84 #L Hemoglobin 7.7 #L Hematocrit 26.1 #L Mean Corpuscular Volume 91.9 Mean Corpuscular Hemoglobin 27.1 L Mean Corpuscular Hemoglobin Concent 29.5 L Red Cell Distribution Width 18.6 H Platelet Count 258 # Mean Platelet Volume 9.8 Neutrophils % 73.6 Lymphocytes % 14.8 L Monocytes % 8.4 Eosinophils % 1.5 Basophils % 0.3 Nucleated Red Blood Cells % 0.0 Neutrophils # 9.8 H Lymphocytes # 2.0 Monocytes # 1.1 H Eosinophils # 0.2 Basophils # 0.0 Nucleated Red Blood Cells # 0.0 Medications Medications Current Medications Miscellaneous Information 1 ea NOTE XX ; Start 01/16/17 at 23:30 Glucose (Glutose) 15 gm Q15M PRN PO DECREASED GLUCOSE; Start 01/16/17 at 23:30 Glucose (Glutose) 22.5 gm Q15M PRN PO DECREASED GLUCOSE; Start 01/16/17 at 23: 30 Dextrose (D50w Syringe) 25 ml Q15M PRN IV DECREASED GLUCOSE Last administered on 01/22/17t 20:54; Admin Dose 25 ML; Start 01/16/17 at 23:30 Dextrose (D50w Syringe) 50 ml Q15M PRN IV DECREASED GLUCOSE; Start 01/16/17 at 23:30 Glucagon (Glucagen) 1 mg Q15M PRN IM DECREASED GLUCOSE; Start 01/16/17 at 23:30 Glucose (Glutose) 15 gm Q15M PRN BUCCAL DECREASED GLUCOSE; Start 01/16/17 at 23 :30 Latanoprost (Xalatan) 1 drop HS BOTH EYES Last administered on 01/28/17 21:06 ; Admin Dose 1 DROP; Start 01/17/17 at 21:00 Epoetin Raj (Epogen (Esrd)) 10,000 units TuThSa@17 SC Last administered on 17:30; Admin Dose 10,000 UNITS; Start 01/18/17 at 17:00 Ondansetron HCl (Zofran Inj) 4 mg Q6H PRN IV NAUSEA AND/OR VOMITING; Start at 00:30 Collagenase (Santyl) 1 applic DAILY TOP Last administered on 01/28/17 09:56; Admin Dose 1 APPLIC; Start 01/18/17 at 16:00 Collagenase (Santyl) 1 applic PRN PRN TOP WOUND CARE; Start 01/18/17 at 15:00 Enoxaparin Sodium (Lovenox) 30 mg DAILY SC Last administered on 01/28/17 09:55 ; Admin Dose 30 MG; Start 01/20/17 at 09:00 Bisacodyl (Dulcolax Supp) 10 mg BID PRN [place] CONSTIPATION; Start 01/20/17 at 17: 00 Sodium Biphosphate/ Sodium Phosphate (Fleet Enema) 133 ml BID PRN [place] CONSTIPATION; Start 01/20/17 at 17:00 Neomycin/ Polymyxin/ Bacitracin (Neosporin Topical Oint) 1 applic TID TOP Last administered on 01/28/17 21:06; Admin Dose 1 APPLIC; Start 01/21/17 at 21:00 Morphine Sulfate (morphine) 2 mg Q4H PRN IV PAIN Last administered on 11:01; Admin Dose 2 MG; Start 01/22/17 at 16:00 Insulin Glargine (Lantus) 30 unit DAILY@08 SC Last administered on 01/28/17 09 :57; Admin Dose 30 UNIT; Start 01/25/17 at 08:00 Ferrous Sulfate (Feosol Liquid Cup) 300 mg DAILY GTB Last administered on 09:47; Admin Dose 300 MG; Start 01/24/17 at 16:30 Insulin Aspart (Novolog Insulin Pen) NOVOLOG *MODERATE* ALGORI... Q6 SC Last administered on 01/29/17 06:00; Admin Dose 2 UNIT; Start 01/25/17 at 00:00 Pantoprazole (Protonix Iv) 40 mg DAILY@06 IV Last administered on 01/29/17 05: 54; Admin Dose 40 MG; Start 01/26/17 at 06:00 Fluconazole (Diflucan) 100 mg DAILY NGT Last administered on 01/28/17 11:02; Admin Dose 100 MG; Start 01/28/17 at 10:00 Amoxicillin/ Clavulanate Potassium (Augmentin) 875 mg BID GTB Last administered on 01/28/17 21:04; Admin Dose 875 MG; Start 01/28/17 at 21:00 Trimethoprim/ Sulfamethoxazole (Bactrim (Ds)) 1 tab BID GTB Last administered on 01/28/17 21:04; Admin Dose 1 TAB; Start 01/28/17 at 21:00 Acetaminophen (Tylenol Liquid) 650 mg Q6H PRN GTB PAIN AND OR ELEVATED TEMP Last administered on 01/28/17 11:51; Admin Dose 650 MG; Start 01/28/17 at 13:30 Metoprolol Tartrate (Lopressor) 50 mg BID GTB Last administered on 01/28/17 21 :05; Admin Dose 50 MG; Start 01/28/17 at 21:00 DAMIR MARTINEZ MD Jan 29, 2017 08:31
[2017-01-29] MEDS: IPRATROPIUM (NEB) 0.5 MG/2.5 ML AMP HHN SCH ×3 (08:38→20:21)
[2017-01-29] MEDS: TRIMETHOPRIM/SULFAMETHOX (DS) TAB GTB SCH ×2 (08:50→20:15)
[2017-01-29] MEDS: FLUCONAZOLE 100 MG TAB NGT SCH (08:51)
[2017-01-29] MEDS: AMOXICILLIN/CLAV 875 MG TAB GTB SCH (08:53)
[2017-01-29] MEDS: FERROUS SULFATE 60 MG/ML 5ML CUP GTB SCH (08:53)
[2017-01-29] MEDS: morphine 2 MG INJ IV PRN ×2 (08:56→20:58)
[2017-01-29 09:01] LABS: ALBUMIN 2.3 g/dl (3.3-4.9); ALBUMIN/GLOBULIN RATIO 0.67; CALCIUM 8.4 mg/dl (8.4-10.2); CREATININE 1.23 mg/dl (0.44-1.00); TOTAL PROTEIN 5.7 g/dl (6.1-8.1)
[2017-01-29] MEDS: ENOXAPARIN 30 MG/0.3 ML SYG SC SCH (09:15)
[2017-01-29] MEDS: NEOMYC/POLYMYX/BACIT 30 GM OINT TOP SCH ×3 (09:15→20:16)
[2017-01-29] MEDS: INSULIN GLARGINE [LANtus] 3 ML PEN SC SCH (09:15)
[2017-01-29] MEDS: COLLAGENASE 30 GM TUBE TOP SCH (09:15)
[2017-01-29] MEDS: METOPROLOL 50 MG TAB GTB SCH ×2 (10:25→20:15)
--- NOTE | 2017-01-29 11:58 | CONS ---
DATE OF ADMISSION: 01/16/2017 DATE OF CONSULTATION: REASON FOR CONSULTATION: Patient seen by me in the emergency room on 01/17/2017 because of the malpositioning of the G-tube. HISTORY OF PRESENT ILLNESS: I discussed with Dr Nunez in the emergency room, who indicated that a CT scan of the abdomen was done, which showed evidence of migration of the G-tube into the subcutaneous area. Patient was evaluated by Dr Hernandes in the office. Patient recently had a percutaneous cholecystectomy tube placed for acute cholecystitis. The patient still has the drainage catheter in the right upper quadrant, in the gallbladder, apparently seems to be in proper position. From the GI standpoint, patient has no abdominal pain and no history of nausea, vomiting, no GI bleeding. Patient has extensive medical problems. Please refer to the History and Physical by the admitting doctor. However, her medical problems include dysphagia, electrolyte imbalance, renal failure, history of atherosclerotic heart disease, hypoalbuminemia, diabetes, urosepsis. PHYSICAL EXAM: GENERAL: The patient is a 72-year-old, white female who, at the time of my consultation, appeared alert. Not complaining. VITALS: Pulse is 78, blood pressure 122/88. CARDIOVASCULAR: Normal heart sounds. RESPIRATORY: Normal breath sounds. ABDOMEN: Soft. Instead of old gastrostomy tube, there is a Irvas catheter put into the gastrostomy; however, there is evidence of this Rivas catheter in the subcutaneous area because it is not flowing freely to the stomach. CLINICAL IMPRESSION: 1. Migrated gastric tube (G-tube). 2. Dysphagia. 3. Electrolyte imbalance. 4. Renal failure. 5. Diabetes. 6. Status post drainage catheter placement directly to the gallbladder several weeks ago. PLAN: At this time recommend discontinue the temporary Rivas which is in the subcutaneous area, and when the gastrostomy site closes, will consider doing a percutaneous endoscopic gastrostomy tube placement. Once again, doctor, thank you for this consultation. Dictated By: Jignesh Helm MD /sari/sulma /Document#: [id number] CC: Jessica Castillo MD;*End*
--- NOTE | 2017-01-29 11:58 | CONS ---
DATE OF ADMISSION: 01/16/2017 DATE OF CONSULTATION: 01/18/2017 Progress Note SUBJECTIVE DATA: The patient was seen by me for migration of the G-tube and at this time came to examine the patient, but she is in the radiology room. Upon discussion with the radiologist, I was told that the gallbladder drainage tube could be in the gallbladder or it may be migrated, and because of that the study is being done to see if the catheter is in the gallbladder or not. If not, that will be repositioned. PLAN: Will follow the patient closely and will have percutaneous endoscopic gastrostomy tube placement for long-term nutritional support. Dictated By: Jignesh Helm MD /sari/sulma /Document#: [id number]
--- NOTE | 2017-01-29 14:34 | PN ---
Date/Time of Note Date/Time of Note DATE: 01/29/17 TIME: 14:29 Assessment/Plan VTE Prophylaxis VTE Prophylaxis Intervention: LMWH Lines/Catheters IV Catheter Type (from Nrsg): PICC Line Central line still needed: Yes Urinary Cath still in place: Yes Reason Cath still needed: other (indicate) Assessment/Plan Assessment/Plan 01/[address] at bed side. pt awake and alert. hgb back to 7.7, pulse 100 with increased b-danyel. 01/28 hgb jump 7.7 to 13. yeast in urine -diflucan started wbc lower, pulse jumped to 120's 01/27 elevated wbc lower hgb, ct brain neg 01/[address], feedings started , belly pain improved, scheduled for dialysis 01/23 hgb by picc low again. will repeat draw by arm and if hgb<8.0 will transfuse. gtube rescheduled to today. 01/22 hgb redraw and is higher 8.9. dialysis done today, awaiting gtube reinsertion. 01/21 surg reports ok for gtube replace. gi reports will plan to place in am. cr increased 1.3 to 1.4. choking on apple sauce yesterday. 01/20 dialysis today, low sugar overall bad day today. 01/19gi- awaiting consult for replacement of g-tube. pt not appear to be able to take po nutrition appropriately. GI- g-tube dislodged causing cellulitis of the abd wall. 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 -id following and pt on vanco/zosyn---now changed due to klebsiella to vanco/ merrem . vanco merrem to be completed on 01/25, then will be on ngt augmentin/ bactrim. due to elevated wbc iv abx cont. 01/28 wbc improved abx changed to gtube aug/. -gi replace g-tube 01/23. feeding restarted 01/24. -swallow study taking place at bedside. renal- pt producing some urine. renal following and questioning if functionality has improved. fluid overloaded, being diuresed. dialysis restarted. epogen given. -uti now off merrem and starting diflucan pulm has a right lung infiltrate and mod effusion. pulm following tapped for 1 liter removed. abx changed. been stable dm- on sliding scale. no nutrition yet, sugar running low- lantis decreased. d5 running. since feeding has been restarted the accu checks to be expected to go up and will need to increase insulin appropriately. will increase lantus back to 30 u, accu checks elevated will increase to 35u cv- h/o arrest, stent RI, cards following. b-danyel restarted. stable cholecystostomy- surg following and drain changed and growing klebsiella. on abx. doing well. anemia- discussed with renal if transfusion is necessary. pt given epogen. renal to watch. low in FE. awaiting it g-tube to be reinserted or other source for feeding. hgb better 8.2. today cbc drawn from picc and the hgb 7.4. redraw from arm and 8.9. doing fine. lower today need to draw from arm. sudden jump inhgb 13- unclear if this is a true reading. appears to false due to hgb back to 7.7 from picc. will need draw tomorrow from arm tachycardia- on same b-danyel, not appear to have an acute change. will have cards re-eval. cards changed metoprolol to higher dose and via gtube poor iv access. picc in place. Subjective 24 Hr Interval Summary Free Text/Dictation wide awake, swallow study being preformed. Exam/Review of Systems Vital Signs Vitals Vital Signs Date Time Temp Pulse Resp B/P Pulse Ox O2 Delivery O2 Flow Rate FiO2 01/29/17 14:16 21 01/29/17 12:10 92 01/29/17 11:46 98.6 20 104/58 94 01/28/17 20:00 Nasal Cannula 2.0 Intake and Output 01/28/17 01/28/17 01/29/17 15:00 23:00 07:00 Intake Total 570 ml 630 ml Output Total 300 ml 350 ml Balance 270 ml 280 ml Results Result Diagram: 01/29/17 0747 01/29/17 0747 Results 24 hrs Laboratory Tests Test 01/28/17 17:52 01/29/17 01:39 01/29/17 05:53 01/29/17 07:47 Bedside Glucose 163 245 H 176 White Blood Count 13.3 H Red Blood Count 2.84 #L Hemoglobin 7.7 #L Hematocrit 26.1 #L Mean Corpuscular Volume 91.9 Mean Corpuscular Hemoglobin 27.1 L Mean Corpuscular Hemoglobin Concent 29.5 L Red Cell Distribution Width 18.6 H Platelet Count 258 # Mean Platelet Volume 9.8 Neutrophils % 73.6 Lymphocytes % 14.8 L Monocytes % 8.4 Eosinophils % 1.5 Basophils % 0.3 Nucleated Red Blood Cells % 0.0 Neutrophils # 9.8 H Lymphocytes # 2.0 Monocytes # 1.1 H Eosinophils # 0.2 Basophils # 0.0 Nucleated Red Blood Cells # 0.0 Sodium Level 143 Potassium Level 4.0 Chloride Level 102 Carbon Dioxide Level 29 Anion Gap 16 Blood Urea Nitrogen 60 H Creatinine 1.23 H Glucose Level 168 Calcium Level 8.4 Total Bilirubin 0.0 L Direct Bilirubin 0.00 Indirect Bilirubin 0.0 Aspartate Amino Transf (AST/SGOT) 35 Alanine Aminotransferase (ALT/SGPT) 28 Alkaline Phosphatase 178 H Total Protein 5.7 L Albumin 2.3 L Globulin 3.40 H Albumin/Globulin Ratio 0.67 Test 01/29/17 08:48 01/29/17 12:36 Bedside Glucose 219 255 H Medications Medications Current Medications Miscellaneous Information 1 ea NOTE XX ; Start 01/16/17 at 23:30 Glucose (Glutose) 15 gm Q15M PRN PO DECREASED GLUCOSE; Start 01/16/17 at 23:30 Glucose (Glutose) 22.5 gm Q15M PRN PO DECREASED GLUCOSE; Start 01/16/17 at 23: 30 Dextrose (D50w Syringe) 25 ml Q15M PRN IV DECREASED GLUCOSE Last administered on 01/22/17 20:54; Admin Dose 25 ML; Start 01/16/17 at 23:30 Dextrose (D50w Syringe) 50 ml Q15M PRN IV DECREASED GLUCOSE; Start 01/16/17 at 23:30 Glucagon (Glucagen) 1 mg Q15M PRN IM DECREASED GLUCOSE; Start 01/16/17 at 23:30 Glucose (Glutose) 15 gm Q15M PRN BUCCAL DECREASED GLUCOSE; Start 01/16/17 at 23 :30 Latanoprost (Xalatan) 1 drop HS BOTH EYES Last administered on 7/25/17at 21:06 ; Admin Dose 1 DROP; Start 01/17/17 at 21:00 Epoetin Raj (Epogen (Esrd)) 10,000 units TuThSa@17 SC Last administered on 17:30; Admin Dose 10,000 UNITS; Start 01/18/17 at 17:00 Ondansetron HCl (Zofran Inj) 4 mg Q6H PRN IV NAUSEA AND/OR VOMITING; Start at 00:30 Collagenase (Santyl) 1 applic DAILY TOP Last administered on 01/29/17 09:15; Admin Dose 1 APPLIC; Start 01/18/17 at 16:00 Collagenase (Santyl) 1 applic PRN PRN TOP WOUND CARE; Start 01/18/17 at 15:00 Enoxaparin Sodium (Lovenox) 30 mg DAILY SC Last administered on 01/29/17 09:15 ; Admin Dose 30 MG; Start 01/20/17 at 09:00 Bisacodyl (Dulcolax Supp) 10 mg BID PRN [place] CONSTIPATION; Start 01/20/17 at 17: 00 Sodium Biphosphate/ Sodium Phosphate (Fleet Enema) 133 ml BID PRN [place] CONSTIPATION; Start 01/20/17 at 17:00 Neomycin/ Polymyxin/ Bacitracin (Neosporin Topical Oint) 1 applic TID TOP Last administered on 01/29/17 12:37; Admin Dose 1 APPLIC; Start 01/21/17 at 21:00 Morphine Sulfate (morphine) 2 mg Q4H PRN IV PAIN Last administered on 08:56; Admin Dose 2 MG; Start 01/22/17 at 16:00 Insulin Glargine (Lantus) 30 unit DAILY@08 SC Last administered on 01/29/17 09 :15; Admin Dose 30 UNIT; Start 01/25/17 at 08:00 Ferrous Sulfate (Feosol Liquid Cup) 300 mg DAILY GTB Last administered on 08:53; Admin Dose 300 MG; Start 01/24/17 at 16:30 Insulin Aspart (Novolog Insulin Pen) NOVOLOG *MODERATE* ALGORI... Q6 SC Last administered on 01/29/17 12:51; Admin Dose 6 UNIT; Start 01/25/17 at 00:00 Pantoprazole (Protonix Iv) 40 mg DAILY@06 IV Last administered on 01/29/17 05: 54; Admin Dose 40 MG; Start 01/26/17 at 06:00 Fluconazole (Diflucan) 100 mg DAILY NGT Last administered on 01/29/17 08:51; Admin Dose 100 MG; Start 01/28/17 at 10:00 Amoxicillin/ Clavulanate Potassium (Augmentin) 875 mg BID GTB Last administered on 01/29/17 08:53; Admin Dose 875 MG; Start 01/28/17 at 21:00 Trimethoprim/ Sulfamethoxazole (Bactrim (Ds)) 1 tab BID GTB Last administered on 01/29/17 08:50; Admin Dose 1 TAB; Start 01/28/17 at 21:00 Acetaminophen (Tylenol Liquid) 650 mg Q6H PRN GTB PAIN AND OR ELEVATED TEMP Last administered on 01/28/17 11:51; Admin Dose 650 MG; Start 01/28/17 at 13:30 Metoprolol Tartrate (Lopressor) 50 mg BID GTB Last administered on 01/29/17 10 :25; Admin Dose 50 MG; Start 01/28/17 at 21:00 SHAW SRINIVASAN MD Jan 29, 2017 14:34
--- NOTE | 2017-01-29 15:00 | CONS ---
Date/Time of Note Date/Time of Note DATE: 01/29/17 TIME: 15:00 Consult Date/Type/Reason Admit Date/Time Jan 16, 2017 at 22:45 Initial Consult Date 01/18/17 Type of Consultation: Pulmonary Ordering Provider: SHAMA LOPEZ MD Subjective Awake alert comfortable Objective Vital Signs Date Time Temp Pulse Resp B/P Pulse Ox O2 Delivery O2 Flow Rate FiO2 01/29/17 14:16 21 01/29/17 12:10 92 01/29/17 11:46 98.6 20 104/58 94 01/28/17 20:00 Nasal Cannula 2.0 Intake and Output 01/28/17 01/28/17 01/29/17 14:59 22:59 06:59 Intake Total 570 ml 630 ml Output Total 300 ml 350 ml Balance 270 ml 280 ml Exam GENERAL: Elderly lady chronically ill comfortable at rest VITAL SIGNS: per chart NECK: Supple. No JVD or lymphadenopathy. CARDIAC EXAM: S1, S2. No added sounds or murmurs. CHEST: clear bilaterally, No added sounds, rales or wheezes ABDOMEN: Soft, nontender. No guarding or rebound. EXTREMITIES: No cyanosis, clubbing or edema +2 NEUROLOGIC: Significant neuromuscular weakness Results/Medications Result Diagram: 01/29/17 0747 01/29/17 0747 Results 24 hrs Laboratory Tests Test 01/28/17 17:52 01/29/17 01:39 01/29/17 05:53 01/29/17 07:47 Bedside Glucose 163 245 H 176 White Blood Count 13.3 H Red Blood Count 2.84 #L Hemoglobin 7.7 #L Hematocrit 26.1 #L Mean Corpuscular Volume 91.9 Mean Corpuscular Hemoglobin 27.1 L Mean Corpuscular Hemoglobin Concent 29.5 L Red Cell Distribution Width 18.6 H Platelet Count 258 # Mean Platelet Volume 9.8 Neutrophils % 73.6 Lymphocytes % 14.8 L Monocytes % 8.4 Eosinophils % 1.5 Basophils % 0.3 Nucleated Red Blood Cells % 0.0 Neutrophils # 9.8 H Lymphocytes # 2.0 Monocytes # 1.1 H Eosinophils # 0.2 Basophils # 0.0 Nucleated Red Blood Cells # 0.0 Sodium Level 143 Potassium Level 4.0 Chloride Level 102 Carbon Dioxide Level 29 Anion Gap 16 Blood Urea Nitrogen 60 H Creatinine 1.23 H Glucose Level 168 Calcium Level 8.4 Total Bilirubin 0.0 L Direct Bilirubin 0.00 Indirect Bilirubin 0.0 Aspartate Amino Transf (AST/SGOT) 35 Alanine Aminotransferase (ALT/SGPT) 28 Alkaline Phosphatase 178 H Total Protein 5.7 L Albumin 2.3 L Globulin 3.40 H Albumin/Globulin Ratio 0.67 Test 01/29/17 08:48 01/29/17 12:36 Bedside Glucose 219 255 H Medications Current Medications Miscellaneous Information 1 ea NOTE XX ; Start 01/16/17 at 23:30 Glucose (Glutose) 15 gm Q15M PRN PO DECREASED GLUCOSE; Start 01/16/17 at 23:30 Glucose (Glutose) 22.5 gm Q15M PRN PO DECREASED GLUCOSE; Start 01/16/17 at 23: 30 Dextrose (D50w Syringe) 25 ml Q15M PRN IV DECREASED GLUCOSE Last administered on 01/22/17 20:54; Admin Dose 25 ML; Start 01/16/17 at 23:30 Dextrose (D50w Syringe) 50 ml Q15M PRN IV DECREASED GLUCOSE; Start 01/16/17 at 23:30 Glucagon (Glucagen) 1 mg Q15M PRN IM DECREASED GLUCOSE; Start 01/16/17 at 23:30 Glucose (Glutose) 15 gm Q15M PRN BUCCAL DECREASED GLUCOSE; Start 01/16/17 at 23 :30 Latanoprost (Xalatan) 1 drop HS BOTH EYES Last administered on 01/28/17 21:06 ; Admin Dose 1 DROP; Start 01/17/17 at 21:00 Epoetin Raj (Epogen (Esrd)) 10,000 units TuThSa@17 SC Last administered on 17:30; Admin Dose 10,000 UNITS; Start 01/18/17 at 17:00 Ondansetron HCl (Zofran Inj) 4 mg Q6H PRN IV NAUSEA AND/OR VOMITING; Start at 00:30 Collagenase (Santyl) 1 applic DAILY TOP Last administered on 01/29/17 09:15; Admin Dose 1 APPLIC; Start 01/18/17 at 16:00 Collagenase (Santyl) 1 applic PRN PRN TOP WOUND CARE; Start 01/18/17 at 15:00 Enoxaparin Sodium (Lovenox) 30 mg DAILY SC Last administered on 01/29/17 09:15 ; Admin Dose 30 MG; Start 01/20/17 at 09:00 Bisacodyl (Dulcolax Supp) 10 mg BID PRN [place] CONSTIPATION; Start 01/20/17 at 17: 00 Sodium Biphosphate/ Sodium Phosphate (Fleet Enema) 133 ml BID PRN [place] CONSTIPATION; Start 01/20/17 at 17:00 Neomycin/ Polymyxin/ Bacitracin (Neosporin Topical Oint) 1 applic TID TOP Last administered on 01/29/17 12:37; Admin Dose 1 APPLIC; Start 01/21/17 at 21:00 Morphine Sulfate (morphine) 2 mg Q4H PRN IV PAIN Last administered on 08:56; Admin Dose 2 MG; Start 01/22/17 at 16:00 Ferrous Sulfate (Feosol Liquid Cup) 300 mg DAILY GTB Last administered on 08:53; Admin Dose 300 MG; Start 01/24/17 at 16:30 Insulin Aspart (Novolog Insulin Pen) NOVOLOG *MODERATE* ALGORI... Q6 SC Last administered on 01/29/17 12:51; Admin Dose 6 UNIT; Start 01/25/17 at 00:00 Pantoprazole (Protonix Iv) 40 mg DAILY@06 IV Last administered on 01/29/17 05: 54; Admin Dose 40 MG; Start 01/26/17 at 06:00 Fluconazole (Diflucan) 100 mg DAILY NGT Last administered on 01/29/17 08:51; Admin Dose 100 MG; Start 01/28/17 at 10:00 Amoxicillin/ Clavulanate Potassium (Augmentin) 875 mg BID GTB Last administered on 01/29/17 08:53; Admin Dose 875 MG; Start 01/28/17 at 21:00 Trimethoprim/ Sulfamethoxazole (Bactrim (Ds)) 1 tab BID GTB Last administered on 01/29/17 08:50; Admin Dose 1 TAB; Start 01/28/17 at 21:00 Acetaminophen (Tylenol Liquid) 650 mg Q6H PRN GTB PAIN AND OR ELEVATED TEMP Last administered on 01/28/17 11:51; Admin Dose 650 MG; Start 01/28/17 at 13:30 Metoprolol Tartrate (Lopressor) 50 mg BID GTB Last administered on 01/29/17t 10 :25; Admin Dose 50 MG; Start 01/28/17 at 21:00 Insulin Glargine (Lantus) 35 unit DAILY@08 SC ; Start 01/30/17 at 08:00 Assessment/Plan Chief Complaint/Hosp Course Assessment 1. Severe sepsis likely polymicrobial 2. Status post thoracentesis pleural fluid suggestive of transudative process given low protein however elevated LDH noted. No malignant cells noted 3. End-stage renal failure on hemodialysis 4. History ST elevation [place] 5. Recent recurrent hypoxemic respiratory failure 6. Dysphagia G-tube has been dislodged. Patient has significant aspiration risk 7. Anemia likely of chronic disease 8. tachycardia noted, ? sepsis Plan 1. Broad-spectrum antibiotics per infectious diseases 2. Supplemental O2 as needed 3. Wound care 4. Pleural fluid studies noted 5. Aspiration precautions 6. Tube feeding as tolerated 7. Surgical recommendations 8. Continues hemodialysis 3 times a week. 9. Monitor H&H Problems: ZANDRA ROBISON MD, [facility] Jan 29, 2017 15:00
[2017-01-29] MEDS ORDERED: ACETAMINOPHEN 650MG/20.3ML CUP ONE (18:02)
[2017-01-29] MEDS: LATANOPROST 0.005% 2.5 ML OPH BOTH EYES SCH (20:14)
[2017-01-29] MEDS: AMOXICILLIN/CLAV 500 MG TAB GTB SCH (21:12)
[2017-01-29] MEDS: FUROSEMIDE 40 MG INJ IV SCH (22:13)
[2017-01-30] VITALS (13 sets, daily range): BP systolic 94–121; BP diastolic 47–58; PULSE 83–103; RESP 16–18
[2017-01-30] MEDS: LEVALBUTEROL (NEB) 0.31 MG/3 ML AMP HHN SCH ×4 (01:47→19:42)
[2017-01-30] MEDS: PANTOPRAZOLE 40 MG INJ IV SCH (05:40)
[2017-01-30] MEDS: FUROSEMIDE 40 MG INJ IV SCH ×2 (05:44→11:52)
[2017-01-30] MEDS: INSULIN ASPART [NOVOLOG] 3 ML PEN SC SCH ×4 (05:47→17:36)
--- NOTE | 2017-01-30 06:52 | CONS ---
DATE OF ADMISSION: 01/16/2017 DATE OF CONSULTATION: 01/19/2017 SUBJECTIVE: The patient today is intubated. She has no complaints. Saw her status post migration of the G-tube. OBJECTIVE: On examination of the abdomen, she has an old gastrostomy site with a little pus coming out of this area. Cultures have not been done. At this time I requested the nurse to do a culture of the gastrostomy site secretions. LABORATORY: WBC count is better today at 18,100 mg. Currently she is on meropenem. IMPRESSION: Migrated G-tube with infected gastrostomy tube site. PLAN: At this time, we will give it a couple more days for the gastrostomy to heal and then will consider putting a percutaneous endoscopic gastrostomy for long-term nutritional support. Dictated By: Jignesh Helm MD /sari/sulma /Document#: [id number] CC: Jessica Castillo MD;*End*
[2017-01-30] MEDS: IPRATROPIUM (NEB) 0.5 MG/2.5 ML AMP HHN SCH ×3 (08:00→19:42)
[2017-01-30] MEDS: METOPROLOL 50 MG TAB GTB SCH ×2 (09:00→20:48)
[2017-01-30] MEDS: FLUCONAZOLE 100 MG TAB NGT SCH (09:20)
[2017-01-30] MEDS: FERROUS SULFATE 60 MG/ML 5ML CUP GTB SCH (09:20)
[2017-01-30] MEDS: NEOMYC/POLYMYX/BACIT 30 GM OINT TOP SCH (09:29)
[2017-01-30] MEDS: COLLAGENASE 30 GM TUBE TOP SCH (09:29)
--- NOTE | 2017-01-30 09:34 | CONS ---
Date/Time of Note Date/Time of Note DATE: 01/30/17 TIME: : Assessment/Plan Assessment/Plan Chief Complaint/Hosp Course Impression: 1. Renal failure. Her serum creatinine has been low. Her serum creatinine yesterday was 1.23. She is putting out some urine. I did order Lasix IV every 6 hours to see if I could diurese her. If her urine output does increase then we could hopefully postpone dialysis unless her BUN and creatinine rise. Those labs are pending for today. 2. Multiple medical problems including insulin-dependent diabetes mellitus, atherosclerotic heart disease with acute ID and status post cardiac arrest with acute renal failure and anoxic encephalopathy, congestive heart failure, anemia of chronic disease, malnutrition, dysphagia requiring PEG placement , urinary tract infection , acute cholecystitis with drainage tube in place, peripheral vascular disease, history of her respiratory failure, history of acute cholecystitis with gallbladder drainage tube in place . She was admitted now because her gastric feeding tube dislodged and some of her feeding went into her abdominal cavity. She was thought to be septic at the time of admission. 3. She does have abdominal tenderness today; although, she seems to be more comfortable than yesterday. Plan: 1. next dialysis to be determined . will check labs today when available. 2. Continue Epogen 5. IV Lasix to see if if we can increase her urine output.. Problems: Consultation Date/Type/Reason Admit Date/Time Jan 16, 2017 at 22:45 Initial Consult Date 01/18/17 Type of Consultation: Pulmonary Referring Provider: SHAMA LOPEZ MD 24 HR Interval Summary Free Text/Dictation She is awake and alert this morning. She says that she feels better. She denies any abdominal pain. Constitutional: improved, no complaints Exam/Review of Systems Vital Signs Vitals Vital Signs Date Time Temp Pulse Resp B/P Pulse Ox O2 Delivery O2 Flow Rate FiO2 01/30/17 08:38 94 21 01/30/17 08:11 96 01/30/17 07:28 98.2 16 99/50 01/29/17 20:30 Nasal Cannula 2.0 Intake and Output 01/29/17 01/29/17 01/30/17 15:00 23:00 07:00 Intake Total 900 ml 600 ml Output Total 340 ml 250 ml Balance 560 ml 350 ml Exam On abdominal exam she does have some firmness and tenderness in the left upper quadrant. Constitutional: alert, frail, obese, oriented Respiratory: clear to auscultation, diminished breath sounds Cardiovascular: edema, regular rate and rhythm Gastrointestinal: soft Extremities: edema Results Result Diagram: 01/29/17 0747 01/29/17 0747 Results 24 hrs Laboratory Tests Test 01/29/17 12:36 01/29/17 18:21 01/30/17 00:17 01/30/17 05:44 Bedside Glucose 255 H 251 H 135 211 Medications Medications Current Medications Miscellaneous Information 1 ea NOTE XX ; Start 01/16/17 at 23:30 Glucose (Glutose) 15 gm Q15M PRN PO DECREASED GLUCOSE; Start 01/16/17 at 23:30 Glucose (Glutose) 22.5 gm Q15M PRN PO DECREASED GLUCOSE; Start 01/16/17 at 23: 30 Dextrose (D50w Syringe) 25 ml Q15M PRN IV DECREASED GLUCOSE Last administered on 01/22/17 20:54; Admin Dose 25 ML; Start 01/16/17 at 23:30 Dextrose (D50w Syringe) 50 ml Q15M PRN IV DECREASED GLUCOSE; Start 01/16/17 at 23:30 Glucagon (Glucagen) 1 mg Q15M PRN IM DECREASED GLUCOSE; Start 01/16/17 at 23:30 Glucose (Glutose) 15 gm Q15M PRN BUCCAL DECREASED GLUCOSE; Start 01/16/17 at 23 :30 Latanoprost (Xalatan) 1 drop HS BOTH EYES Last administered on 01/29/17 20:14 ; Admin Dose 1 DROP; Start 01/17/17 at 21:00 Epoetin Raj (Epogen (Esrd)) 10,000 units TuThSa@17 SC Last administered on 17:30; Admin Dose 10,000 UNITS; Start 01/18/17 at 17:00 Ondansetron HCl (Zofran Inj) 4 mg Q6H PRN IV NAUSEA AND/OR VOMITING; Start at 00:30 Collagenase (Santyl) 1 applic DAILY TOP Last administered on 01/29/17 09:15; Admin Dose 1 APPLIC; Start 01/18/17 at 16:00 Collagenase (Santyl) 1 applic PRN PRN TOP WOUND CARE; Start 01/18/17 at 15:00 Enoxaparin Sodium (Lovenox) 30 mg DAILY SC Last administered on 01/29/17 09:15 ; Admin Dose 30 MG; Start 01/20/17 at 09:00 Bisacodyl (Dulcolax Supp) 10 mg BID PRN [place] CONSTIPATION; Start 01/20/17 at 17: 00 Sodium Biphosphate/ Sodium Phosphate (Fleet Enema) 133 ml BID PRN [place] CONSTIPATION; Start 01/20/17 at 17:00 Neomycin/ Polymyxin/ Bacitracin (Neosporin Topical Oint) 1 applic TID TOP Last administered on 01/29/17 20:16; Admin Dose 1 APPLIC; Start 01/21/17 at 21:00 Morphine Sulfate (morphine) 2 mg Q4H PRN IV PAIN Last administered on 20:58; Admin Dose 2 MG; Start 01/22/17 at 16:00 Ferrous Sulfate (Feosol Liquid Cup) 300 mg DAILY GTB Last administered on 08:53; Admin Dose 300 MG; Start 01/24/17 at 16:30 Insulin Aspart (Novolog Insulin Pen) NOVOLOG *MODERATE* ALGORI... Q6 SC Last administered on 01/30/17 05:47; Admin Dose 4 UNIT; Start 01/25/17 at 00:00 Pantoprazole (Protonix Iv) 40 mg DAILY@06 IV Last administered on 01/30/17 05: 40; Admin Dose 40 MG; Start 01/26/17 at 06:00 Fluconazole (Diflucan) 100 mg DAILY NGT Last administered on 01/29/17 08:51; Admin Dose 100 MG; Start 01/28/17 at 10:00 Acetaminophen (Tylenol Liquid) 650 mg Q6H PRN GTB PAIN AND OR ELEVATED TEMP Last administered on 01/28/17 11:51; Admin Dose 650 MG; Start 01/28/17 at 13:30 Metoprolol Tartrate (Lopressor) 50 mg BID GTB Last administered on 01/29/17 20 :15; Admin Dose 50 MG; Start 01/28/17 at 21:00 Insulin Glargine (Lantus) 35 unit DAILY@08 SC ; Start 01/30/17 at 08:00 Trimethoprim/ Sulfamethoxazole (Bactrim (Ds)) 1 tab HS GTB Last administered on 01/29/17 20:15; Admin Dose 1 TAB; Start 01/29/17 at 21:00 Amoxicillin/ Clavulanate Potassium (Augmentin) 500 mg QHS GTB Last administered on 01/29/17 21:12; Admin Dose 500 MG; Start 01/29/17 at 21:00 Furosemide (Lasix) 40 mg Q6 IV Last administered on 01/29/17 22:13; Admin Dose 40 MG; Start 01/29/17 at 22:00 DAMIR MARTINEZ MD Jan 30, 2017 09:33
[2017-01-30] MEDS: ENOXAPARIN 30 MG/0.3 ML SYG SC SCH (09:49)
--- NOTE | 2017-01-30 09:51 | CONS ---
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 culture the wound site and continue with vanco/zosyn 01/18 - g-tube wound cx is NGTD 01/19 - g-tube wound cx has scant CoNS, doubt this is significant 01/20 - await decision regarding g-tube re-insertion 01/21 - pt is too lethargic for swallow eval to be done, re-attempt today 01/22 - pt to get new g-tube placed today 01/23 - unable to get g-tube yesterday, re-scheduled for today 01/24 - pt got G-tube and TF restarted no abd pain 01/27 - looks benign and non tender 01/28 - new g-tube in place 2) choleycystitis pt has had a drain in place for this until she is ready for surgery will cx the fluid that is present 01/18 - AMBROSE drain cx has growth but too young continue with vanco/zosyn CT showed distending GB and gallstones but no fluid around the GB 01/19 - AMBROSE drain is growing regular klebsiella and MRSA due to kleb +ESBL in urine will change zosyn to merrem, to continue with vanco contact isolation ordered 01/20 - continue with vanco/merrem at present 01/22 - WBC almost back to normal day 01/13 of vanco and day 4/7 of merrem likely will change to po augmentin/bactrim in 3 days if WBC is ok 01/23 - no new recs 01/24 - continue with vanco/merrem thru 01/25 then change to po augmentin/bactrim 01/27 - due to elevated wbc, continue with vanco/merrem and re-cx the GB fluid 01/28 - wbc is better, cx from GB fluid is NGTD d/c vanco/merrem and start augmentin/bactrim 01/30 - stable, slight increase in WBC GB fluid only grew kleb and yeast sensitive to the augmentin will check nasal to see if isolation can be d/c'd 3) recent STEMI and hx of CABG 4) renal failure pt has very good creatinine but is still receiving dialysis she also has distended bladder by CT will get u/a and urine cx, nurse to straight cath vanco/zosyn should cover 5) sacral ulcer unable to see nurse to get picture 01/18 - no sign for infection according to notes 6) UTI 01/18 - pus is coming out from guevara urine cx is growing GNR continue with zosyn as WBC is decreasing 01/19 - urine cx has kleb +ESBL change zosyn to merrem merrem to be given after HD on dialysis days 01/20 - no change 01/21 - pt's urine output is picking up 01/22 - day / of merrem 01/24 - day 12/11 of merrem repeat u/a and urine cx, if neg can consider stopping isolation 01/27 - re-culture urine, on merrem 01/28 - urine cx is growing yeast d/c merrem and start diflucan 7) R pleural effusion with possible consolidation 01/18 - no phlegm production on vanco/zosyn at present will order nasal for MRSA pt to possibly get R thorancentesis 01/19 - pleural fluid does not appear to be infected with low WBC count and less than 50% PMN's will check LDH in serum to verify if exudative or transudative 01/20 - LDH results consistent with exudative process, cx remain NGTD 01/21 - pleural fluid cx remains NGTD 01/22 - pleural cx was neg 8) 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 01/20 - no sign of cellulitis around these toes 01/22 - stable 9) leukocytosis clinically pt looks better re culture urine, blood, and GB fluid maintain on vanco/merrem CXR was not impressive for new lung infection and her breathing is stable 01/28 - wbc is improved blood cx and wound cx (AMBROSE fluid) are NGTD urine is growing yeast and will start diflucan d/c vanco/merrem and start augmentin/bactrim, likely just for a few days Problems: Consultation Date/Type/Reason Admit Date/Time Jan 16, 2017 at 22:45 Initial Consult Date 01/17/17 Type of Consultation: ID Referring Provider: SHAMA LOPEZ MD 24 HR Interval Summary Free Text/Dictation no new problems Exam/Review of Systems Vital Signs Vitals Vital Signs Date Time Temp Pulse Resp B/P Pulse Ox O2 Delivery O2 Flow Rate FiO2 01/30/17 08:38 94 21 01/30/17 08:11 96 01/30/17 07:28 98.2 16 99/50 01/29/17 20:30 Nasal Cannula 2.0 Intake and Output 01/29/17 01/29/17 01/30/17 15:00 23:00 07:00 Intake Total 900 ml 600 ml Output Total 340 ml 250 ml Balance 560 ml 350 ml Exam Constitutional: alert Head: normocephalic ENMT: mucosa pink and moist Respiratory: clear to auscultation Cardiovascular: regular rate and rhythm Gastrointestinal: non-tender, soft Results Result Diagram: 01/29/17 0747 01/29/17 0747 Results 24 hrs Laboratory Tests Test 01/29/17 12:36 01/29/17 18:21 01/30/17 00:17 01/30/17 05:44 Bedside Glucose 255 H 251 H 135 211 Medications Medications Current Medications Miscellaneous Information 1 ea NOTE XX ; Start 01/16/17 at 23:30 Glucose (Glutose) 15 gm Q15M PRN PO DECREASED GLUCOSE; Start 01/16/17 at 23:30 Glucose (Glutose) 22.5 gm Q15M PRN PO DECREASED GLUCOSE; Start 01/16/17 at 23: 30 Dextrose (D50w Syringe) 25 ml Q15M PRN IV DECREASED GLUCOSE Last administered on 01/22/17 20:54; Admin Dose 25 ML; Start 01/16/17 at 23:30 Dextrose (D50w Syringe) 50 ml Q15M PRN IV DECREASED GLUCOSE; Start 01/16/17 at 23:30 Glucagon (Glucagen) 1 mg Q15M PRN IM DECREASED GLUCOSE; Start 01/16/17 at 23:30 Glucose (Glutose) 15 gm Q15M PRN BUCCAL DECREASED GLUCOSE; Start 01/16/17 at 23 :30 Latanoprost (Xalatan) 1 drop HS BOTH EYES Last administered on 01/29/17 20:14 ; Admin Dose 1 DROP; Start 01/17/17 at 21:00 Epoetin Raj (Epogen (Esrd)) 10,000 units TuThSa@17 SC Last administered on 17:30; Admin Dose 10,000 UNITS; Start 01/18/17 at 17:00 Ondansetron HCl (Zofran Inj) 4 mg Q6H PRN IV NAUSEA AND/OR VOMITING; Start at 00:30 Collagenase (Santyl) 1 applic DAILY TOP Last administered on 01/29/17 09:15; Admin Dose 1 APPLIC; Start 01/18/17 at 16:00 Collagenase (Santyl) 1 applic PRN PRN TOP WOUND CARE; Start 01/18/17 at 15:00 Enoxaparin Sodium (Lovenox) 30 mg DAILY SC Last administered on 01/29/17 09:15 ; Admin Dose 30 MG; Start 01/20/17 at 09:00 Bisacodyl (Dulcolax Supp) 10 mg BID PRN [place] CONSTIPATION; Start 01/20/17 at 17: 00 Sodium Biphosphate/ Sodium Phosphate (Fleet Enema) 133 ml BID PRN [place] CONSTIPATION; Start 01/20/17 at 17:00 Neomycin/ Polymyxin/ Bacitracin (Neosporin Topical Oint) 1 applic TID TOP Last administered on 01/29/17 20:16; Admin Dose 1 APPLIC; Start 01/21/17 at 21:00 Morphine Sulfate (morphine) 2 mg Q4H PRN IV PAIN Last administered on 20:58; Admin Dose 2 MG; Start 01/22/17 at 16:00 Ferrous Sulfate (Feosol Liquid Cup) 300 mg DAILY GTB Last administered on 08:53; Admin Dose 300 MG; Start 01/24/17 at 16:30 Insulin Aspart (Novolog Insulin Pen) NOVOLOG *MODERATE* ALGORI... Q6 SC Last administered on 01/30/17 05:47; Admin Dose 4 UNIT; Start 01/25/17 at 00:00 Pantoprazole (Protonix Iv) 40 mg DAILY@06 IV Last administered on 01/30/17 05: 40; Admin Dose 40 MG; Start 01/26/17 at 06:00 Fluconazole (Diflucan) 100 mg DAILY NGT Last administered on 01/29/17 08:51; Admin Dose 100 MG; Start 01/28/17 at 10:00 Acetaminophen (Tylenol Liquid) 650 mg Q6H PRN GTB PAIN AND OR ELEVATED TEMP Last administered on 01/28/17 11:51; Admin Dose 650 MG; Start 01/28/17 at 13:30 Metoprolol Tartrate (Lopressor) 50 mg BID GTB Last administered on 01/29/17 20 :15; Admin Dose 50 MG; Start 01/28/17 at 21:00 Insulin Glargine (Lantus) 35 unit DAILY@08 SC ; Start 01/30/17 at 08:00 Trimethoprim/ Sulfamethoxazole (Bactrim (Ds)) 1 tab HS GTB Last administered on 01/29/17 20:15; Admin Dose 1 TAB; Start 01/29/17 at 21:00 Amoxicillin/ Clavulanate Potassium (Augmentin) 500 mg QHS GTB Last administered on 01/29/17 21:12; Admin Dose 500 MG; Start 01/29/17 at 21:00 Furosemide (Lasix) 40 mg Q6 IV Last administered on 01/29/17 22:13; Admin Dose 40 MG; Start 01/29/17 at 22:00 TR GOODEN MD Jan 30, 2017 09:51
[2017-01-30] MEDS: INSULIN GLARGINE [LANtus] 3 ML PEN SC SCH (09:52)
--- NOTE | 2017-01-30 10:25 | RADRPT ---
PROCEDURE: XR Chest. CLINICAL INDICATION: Congestive heart failure TECHNIQUE: Single frontal chest x-ray. COMPARISON: 01/26/2017 FINDINGS: There is a right sided tunneled dialysis catheter and a right arm PICC line in place unchanged. . T here is improved bibasilar atelectasis or infiltrates since previous exam. Small bilateral pleural effusions may be present.. The cardiomediastinal silhouette is unremarkable. The osseous structures are intact. IMPRESSION: Tubes and lines unchanged. Decreased bibasilar atelectasis or infiltrates. RPTAT: JJ .Reji Larsen MD, MD Date Time Electronically viewed and signed by .Reji Larsen MD, MD on 01/30/2017 10:25 .L/
--- NOTE | 2017-01-30 10:58 | CONS ---
Date/Time of Note Date/Time of Note DATE: 01/30/17 TIME: 10:57 Consult Date/Type/Reason Admit Date/Time Jan 16, 2017 at 22:45 Initial Consult Date 01/18/17 Type of Consultation: Pulmonary Ordering Provider: SHAMA LOPEZ MD Subjective Remains comfortable no significant events Objective Vital Signs Date Time Temp Pulse Resp B/P Pulse Ox O2 Delivery O2 Flow Rate FiO2 01/30/17 08:38 94 21 01/30/17 08:11 96 01/30/17 07:28 98.2 16 99/50 01/29/17 20:30 Nasal Cannula 2.0 Intake and Output 01/29/17 01/29/17 01/30/17 15:00 23:00 07:00 Intake Total 900 ml 600 ml Output Total 340 ml 250 ml Balance 560 ml 350 ml Exam PHYSICAL EXAMINATION GENERAL: Chronically ill-appearing lady intubated on mechanical ventilation appears comfortable at rest VITAL SIGNS: see below. HEENT: Pupils equal, round, and reactive to light. CARDIAC: S1, S2, 1/6 systolic ejection murmur CHEST: Diminished air entry bilaterally. Chest tube placed in left lung. ABDOMEN: Mildly distended. Bowel sounds present no guarding or rebound EXTREMITIES: No cyanosis, clubbing edema +1 NEUROLOGIC: Generalized weakness Results/Medications Result Diagram: 01/29/17 0747 01/29/17 0747 Results 24 hrs Laboratory Tests Test 01/29/17 12:36 01/29/17 18:21 01/30/17 00:17 01/30/17 05:44 Bedside Glucose 255 H 251 H 135 211 Medications Current Medications Miscellaneous Information 1 ea NOTE XX ; Start 01/16/17 at 23:30 Glucose (Glutose) 15 gm Q15M PRN PO DECREASED GLUCOSE; Start 01/16/17 at 23:30 Glucose (Glutose) 22.5 gm Q15M PRN PO DECREASED GLUCOSE; Start 01/16/17 at 23: 30 Dextrose (D50w Syringe) 25 ml Q15M PRN IV DECREASED GLUCOSE Last administered on 01/22/17t 20:54; Admin Dose 25 ML; Start 01/16/17 at 23:30 Dextrose (D50w Syringe) 50 ml Q15M PRN IV DECREASED GLUCOSE; Start 01/16/17 at 23:30 Glucagon (Glucagen) 1 mg Q15M PRN IM DECREASED GLUCOSE; Start 01/16/17 at 23:30 Glucose (Glutose) 15 gm Q15M PRN BUCCAL DECREASED GLUCOSE; Start 01/16/17 at 23 :30 Latanoprost (Xalatan) 1 drop HS BOTH EYES Last administered on 01/29/17 20:14 ; Admin Dose 1 DROP; Start 01/17/17 at 21:00 Epoetin Raj (Epogen (Esrd)) 10,000 units TuThSa@17 SC Last administered on 17:30; Admin Dose 10,000 UNITS; Start 01/18/17 at 17:00 Ondansetron HCl (Zofran Inj) 4 mg Q6H PRN IV NAUSEA AND/OR VOMITING; Start at 00:30 Collagenase (Santyl) 1 applic DAILY TOP Last administered on 01/30/17 09:29; Admin Dose 1 APPLIC; Start 01/18/17 at 16:00 Collagenase (Santyl) 1 applic PRN PRN TOP WOUND CARE; Start 01/18/17 at 15:00 Enoxaparin Sodium (Lovenox) 30 mg DAILY SC Last administered on 01/30/17 09:49 ; Admin Dose 30 MG; Start 01/20/17 at 09:00 Bisacodyl (Dulcolax Supp) 10 mg BID PRN [place] CONSTIPATION; Start 01/20/17 at 17: 00 Sodium Biphosphate/ Sodium Phosphate (Fleet Enema) 133 ml BID PRN [place] CONSTIPATION; Start 01/20/17 at 17:00 Neomycin/ Polymyxin/ Bacitracin (Neosporin Topical Oint) 1 applic TID TOP Last administered on 01/30/17 09:29; Admin Dose 1 APPLIC; Start 01/21/17 at 21:00 Morphine Sulfate (morphine) 2 mg Q4H PRN IV PAIN Last administered on 20:58; Admin Dose 2 MG; Start 01/22/17 at 16:00 Ferrous Sulfate (Feosol Liquid Cup) 300 mg DAILY GTB Last administered on 09:20; Admin Dose 300 MG; Start 01/24/17 at 16:30 Insulin Aspart (Novolog Insulin Pen) NOVOLOG *MODERATE* ALGORI... Q6 SC Last administered on 01/30/17 05:47; Admin Dose 4 UNIT; Start 01/25/17 at 00:00 Pantoprazole (Protonix Iv) 40 mg DAILY@06 IV Last administered on 01/30/17 05: 40; Admin Dose 40 MG; Start 01/26/17 at 06:00 Fluconazole (Diflucan) 100 mg DAILY NGT Last administered on 01/30/17 09:20; Admin Dose 100 MG; Start 01/28/17 at 10:00 Acetaminophen (Tylenol Liquid) 650 mg Q6H PRN GTB PAIN AND OR ELEVATED TEMP Last administered on 01/28/17 11:51; Admin Dose 650 MG; Start 01/28/17 at 13:30 Metoprolol Tartrate (Lopressor) 50 mg BID GTB Last administered on 01/29/17 20 :15; Admin Dose 50 MG; Start 01/28/17 at 21:00 Insulin Glargine (Lantus) 35 unit DAILY@08 SC Last administered on 01/30/17 09 :52; Admin Dose 35 UNIT; Start 01/30/17 at 08:00 Trimethoprim/ Sulfamethoxazole (Bactrim (Ds)) 1 tab HS GTB Last administered on 01/29/17 20:15; Admin Dose 1 TAB; Start 01/29/17 at 21:00 Amoxicillin/ Clavulanate Potassium (Augmentin) 500 mg QHS GTB Last administered on 01/29/17 21:12; Admin Dose 500 MG; Start 01/29/17 at 21:00 Furosemide (Lasix) 40 mg Q6 IV Last administered on 01/29/17 22:13; Admin Dose 40 MG; Start 01/29/17 at 22:00 Assessment/Plan Chief Complaint/Hosp Course Assessment 1. Severe sepsis likely polymicrobial 2. Status post thoracentesis pleural fluid suggestive of transudative process given low protein however elevated LDH noted. No malignant cells noted 3. End-stage renal failure on hemodialysis 4. History ST elevation [place] 5. Recent recurrent hypoxemic respiratory failure 6. Dysphagia G-tube has been dislodged. Patient has significant aspiration risk 7. Anemia likely of chronic disease 8. tachycardia noted, ? sepsis Plan 1. Broad-spectrum antibiotics per infectious diseases 2. Supplemental O2 as needed 3. Wound care 4. Pleural fluid studies noted 5. Aspiration precautions 6. Tube feeding as tolerated 7. Surgical recommendations 8. Continues hemodialysis 3 times a week. 9. Monitor H&H Problems: ZANDRA ROBISON [facility], [facility] Jan 30, 2017 10:57
[2017-01-30 11:56] LABS: BASOPHILS % 0.2 % (0.0-2.0); EOSINOPHILS # 0.3 10^3/ul (0.0-0.5); EOSINOPHILS % 2.7 % (0.0-7.0); HEMATOCRIT 24.7 % (37.0-47.0); HEMOGLOBIN 7.2 g/dl (12.0-16.0); LYMPHOCYTES # 2.5 10^3/ul (0.8-2.9); LYMPHOCYTES % 20.2 % (15.0-51.0); MEAN CORPUSCULAR HEMOGLOBIN 26.8 pg (29.0-33.0); MEAN CORPUSCULAR HGB CONC 29.1 g/dl (32.0-37.0); MEAN CORPUSCULAR VOLUME 91.8 fl (82.0-101.0); MEAN PLATELET VOLUME 10.2 fl (7.4-10.4); MONOCYTE # 1.1 10^3/ul (0.3-0.9); MONOCYTES % 8.8 % (0.0-11.0); NEUTROPHIL # 8.3 10^3/ul (1.6-7.5); NEUTROPHILS % 67.2 % (39.0-77.0); PLATELET COUNT 309 10^3/UL (140-415); RED BLOOD COUNT 2.69 10^6/ul (4.20-5.40); RED CELL DISTRIBUTION WIDTH 18.6 % (11.5-14.5); WHITE BLOOD COUNT 12.3 10^3/ul (4.8-10.8)
[2017-01-30 12:21] LABS: ALBUMIN 2.3 g/dl (3.3-4.9); ALBUMIN/GLOBULIN RATIO 0.69; CALCIUM 7.9 mg/dl (8.4-10.2); CREATININE 1.38 mg/dl (0.44-1.00); MAGNESIUM 1.9 mg/dl (1.7-2.5); PHOSPHORUS 4.3 mg/dl (2.5-4.9); POTASSIUM 4.4 mmol/L (3.5-5.1); TOTAL PROTEIN 5.6 g/dl (6.1-8.1)
--- NOTE | 2017-01-30 12:30 | PN ---
Date/Time of Note Date/Time of Note DATE: 01/30/17 TIME: 12: Assessment/Plan VTE Prophylaxis VTE Prophylaxis Intervention: LMWH Lines/Catheters IV Catheter Type (from Nrsg): PICC Line Central line still needed: Yes Urinary Cath still in place: Yes Reason Cath still needed: other (indicate) Assessment/Plan Assessment/Plan 01/30 swallow study at bedside- coughing keeping npo to get video swallow study , hgb low but was it draw from picc. 01/[address] at bed side. pt awake and alert. hgb back to 7.7, pulse 100 with increased b-danyel. 01/28 hgb jump 7.7 to 13. yeast in urine -diflucan started wbc lower, pulse jumped to 120's 01/27 elevated wbc lower hgb, ct brain neg 01/[address], feedings started , belly pain improved, scheduled for dialysis 01/23 hgb by picc low again. will repeat draw by arm and if hgb<8.0 will transfuse. gtube rescheduled to today. 01/22 hgb redraw and is higher 8.9. dialysis done today, awaiting gtube reinsertion. 01/21 surg reports ok for gtube replace. gi reports will plan to place in am. cr increased 1.3 to 1.4. choking on apple sauce yesterday. 01/20 dialysis today, low sugar overall bad day today. 01/19gi- awaiting consult for replacement of g-tube. pt not appear to be able to take po nutrition appropriately. GI- g-tube dislodged causing cellulitis of the abd wall. 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 -id following and pt on vanco/zosyn---now changed due to klebsiella to vanco/ merrem . vanco merrem to be completed on 01/25, then will be on ngt augmentin/ bactrim. due to elevated wbc iv abx cont. 01/28 wbc improved abx changed to gtube aug/wilfredo. -gi replace g-tube 01/23. feeding restarted 01/24. -swallow study taking place at bedside. coughing occurred with thin liq , hard to swallow the thicken but no cough. requesting video swallow test. renal- pt producing some urine. renal following and questioning if functionality has improved. fluid overloaded, being diuresed. dialysis restarted. epogen given. -uti now off merrem and starting diflucan pulm has a right lung infiltrate and mod effusion. pulm following tapped for 1 liter removed. abx changed. been stable dm- on sliding scale. no nutrition yet, sugar running low- lantis decreased. d5 running. since feeding has been restarted the accu checks to be expected to go up and will need to increase insulin appropriately. will increase lantus back to 30 u, accu checks elevated will increase to 35u cv- h/o arrest, stent VT, cards following. b-danyel restarted. stable cholecystostomy- surg following and drain changed and growing klebsiella. on abx. doing well. anemia- discussed with renal if transfusion is necessary. pt given epogen. renal to watch. low in FE. awaiting it g-tube to be reinserted or other source for feeding. hgb better 8.2. today cbc drawn from picc and the hgb 7.4. redraw from arm and 8.9. doing fine. lower today need to draw from arm. sudden jump inhgb 13- unclear if this is a true reading. appears to false due to hgb back to 7.7 from picc. will need draw tomorrow from arm. hgb 7.2 drawn from picc. redraw and if from arm hgb<8.0 then will transfuse 1 u prbc. tachycardia- improved on higher dose b-danyel via cards poor iv access. picc in place. isolation to be d/c if the nasal swab is neg for mrsa Exam/Review of Systems Vital Signs Vitals Vital Signs Date Time Temp Pulse Resp B/P Pulse Ox O2 Delivery O2 Flow Rate FiO2 01/30/17 11:32 99.0 95 16 104/54 92 01/30/17 08:38 21 01/29/17 20:30 Nasal Cannula 2.0 Intake and Output 01/29/17 01/29/17 01/30/17 15:00 23:00 07:00 Intake Total 900 ml 600 ml Output Total 340 ml 250 ml Balance 560 ml 350 ml Results Result Diagram: 01/30/17 1142 01/29/17 0747 Results 24 hrs Laboratory Tests Test 01/29/17 12:36 01/29/17 18:21 01/30/17 00:17 01/30/17 05:44 Bedside Glucose 255 H 251 H 135 211 Test 01/30/17 11:42 01/30/17 11:46 White Blood Count 12.3 H Red Blood Count 2.69 L Hemoglobin 7.2 L Hematocrit 24.7 L Mean Corpuscular Volume 91.8 Mean Corpuscular Hemoglobin 26.8 L Mean Corpuscular Hemoglobin Concent 29.1 L Red Cell Distribution Width 18.6 H Platelet Count 309 Mean Platelet Volume 10.2 Neutrophils % 67.2 Lymphocytes % 20.2 Monocytes % 8.8 Eosinophils % 2.7 Basophils % 0.2 Nucleated Red Blood Cells % 0.0 Neutrophils # 8.3 H Lymphocytes # 2.5 Monocytes # 1.1 H Eosinophils # 0.3 Basophils # 0.0 Nucleated Red Blood Cells # 0.0 Bedside Glucose 236 H Medications Medications Current Medications Miscellaneous Information 1 ea NOTE XX ; Start 01/16/17 at 23:30 Glucose (Glutose) 15 gm Q15M PRN PO DECREASED GLUCOSE; Start 01/16/17 at 23:30 Glucose (Glutose) 22.5 gm Q15M PRN PO DECREASED GLUCOSE; Start 01/16/17 at 23: 30 Dextrose (D50w Syringe) 25 ml Q15M PRN IV DECREASED GLUCOSE Last administered on 01/22/17 20:54; Admin Dose 25 ML; Start 01/16/17 at 23:30 Dextrose (D50w Syringe) 50 ml Q15M PRN IV DECREASED GLUCOSE; Start 01/16/17 at 23:30 Glucagon (Glucagen) 1 mg Q15M PRN IM DECREASED GLUCOSE; Start 01/16/17 at 23:30 Glucose (Glutose) 15 gm Q15M PRN BUCCAL DECREASED GLUCOSE; Start 01/16/17 at 23 :30 Latanoprost (Xalatan) 1 drop HS BOTH EYES Last administered on 01/29/17 20:14 ; Admin Dose 1 DROP; Start 01/17/17 at 21:00 Epoetin Raj (Epogen (Esrd)) 10,000 units TuThSa@17 SC Last administered on 17:30; Admin Dose 10,000 UNITS; Start 01/18/17 at 17:00 Ondansetron HCl (Zofran Inj) 4 mg Q6H PRN IV NAUSEA AND/OR VOMITING; Start at 00:30 Collagenase (Santyl) 1 applic DAILY TOP Last administered on 01/30/17 09:29; Admin Dose 1 APPLIC; Start 01/18/17 at 16:00 Collagenase (Santyl) 1 applic PRN PRN TOP WOUND CARE; Start 01/18/17 at 15:00 Enoxaparin Sodium (Lovenox) 30 mg DAILY SC Last administered on 01/30/17 09:49 ; Admin Dose 30 MG; Start 01/20/17 at 09:00 Bisacodyl (Dulcolax Supp) 10 mg BID PRN [place] CONSTIPATION; Start 01/20/17 at 17: 00 Sodium Biphosphate/ Sodium Phosphate (Fleet Enema) 133 ml BID PRN [place] CONSTIPATION; Start 01/20/17 at 17:00 Morphine Sulfate (morphine) 2 mg Q4H PRN IV PAIN Last administered on 20:58; Admin Dose 2 MG; Start 01/22/17 at 16:00 Ferrous Sulfate (Feosol Liquid Cup) 300 mg DAILY GTB Last administered on 09:20; Admin Dose 300 MG; Start 01/24/17 at 16:30 Insulin Aspart (Novolog Insulin Pen) NOVOLOG *MODERATE* ALGORI... Q6 SC Last administered on 01/30/17 12:08; Admin Dose 6 UNIT; Start 01/25/17 at 00:00 Pantoprazole (Protonix Iv) 40 mg DAILY@06 IV Last administered on 01/30/17 05: 40; Admin Dose 40 MG; Start 01/26/17 at 06:00 Fluconazole (Diflucan) 100 mg DAILY NGT Last administered on 01/30/17 09:20; Admin Dose 100 MG; Start 01/28/17 at 10:00 Acetaminophen (Tylenol Liquid) 650 mg Q6H PRN GTB PAIN AND OR ELEVATED TEMP Last administered on 01/28/17 11:51; Admin Dose 650 MG; Start 01/28/17 at 13:30 Metoprolol Tartrate (Lopressor) 50 mg BID GTB Last administered on 01/29/17 20 :15; Admin Dose 50 MG; Start 01/28/17 at 21:00 Insulin Glargine (Lantus) 35 unit DAILY@08 SC Last administered on 01/30/17 09 :52; Admin Dose 35 UNIT; Start 01/30/17 at 08:00 Trimethoprim/ Sulfamethoxazole (Bactrim (Ds)) 1 tab HS GTB Last administered on 01/29/17 20:15; Admin Dose 1 TAB; Start 01/29/17 at 21:00 Amoxicillin/ Clavulanate Potassium (Augmentin) 500 mg QHS GTB Last administered on 01/29/17 21:12; Admin Dose 500 MG; Start 01/29/17 at 21:00 Furosemide (Lasix) 40 mg Q6 IV Last administered on 01/30/17 11:52; Admin Dose 40 MG; Start 01/29/17 at 22:00 Neomycin/ Polymyxin/ Bacitracin (Neosporin Topical Oint) 1 applic DAILY TOP ; Start 01/31/17 at 09:00; Status SHAW COE MD Jan 30, 2017 12:30
[2017-01-30] MEDS: BUMETANIDE 25 MG in DEXTROSE 5% 150 ML IV SCH (15:38)
[2017-01-30 16:28] LABS: BASOPHILS % 0.2 % (0.0-2.0); EOSINOPHILS # 0.4 10^3/ul (0.0-0.5); EOSINOPHILS % 2.6 % (0.0-7.0); HEMATOCRIT 26.5 % (37.0-47.0); HEMOGLOBIN 7.7 g/dl (12.0-16.0); MEAN CORPUSCULAR HEMOGLOBIN 26.6 pg (29.0-33.0); MEAN CORPUSCULAR HGB CONC 29.1 g/dl (32.0-37.0); MEAN CORPUSCULAR VOLUME 91.7 fl (82.0-101.0); MEAN PLATELET VOLUME 10.2 fl (7.4-10.4); MONOCYTE # 1.3 10^3/ul (0.3-0.9); MONOCYTES % 9.8 % (0.0-11.0); NEUTROPHIL # 8.7 10^3/ul (1.6-7.5); NEUTROPHILS % 64.7 % (39.0-77.0); PLATELET COUNT 327 10^3/UL (140-415); RED BLOOD COUNT 2.89 10^6/ul (4.20-5.40); RED CELL DISTRIBUTION WIDTH 18.6 % (11.5-14.5); WHITE BLOOD COUNT 13.4 10^3/ul (4.8-10.8)
--- NOTE | 2017-01-30 16:38 | RADRPT ---
PROCEDURE: Video-fluoroscopy swallowing study. CLINICAL INDICATION: Dysphagia. TECHNIQUE: Fluoroscopic guided video swallowing study was done in conjunction with the speech ther apist. The study was confined to the oral, pharyngeal, and cervical phases of the swallowing mechani sm. 3.2 minutes of fluoroscopy time was used. 22 series of images were obtained. COMPARISON: No prior study is available for comparison. FINDINGS: There is penetration with no evidence of aspiration during the exam. IMPRESSION: 1. No aspiration during swallowing. 2. Please refer to the speech therapist's recommendations for future feedings. RPTAT: QQ .Arnaldo Back MD, MD Date Time Electronically viewed and signed by .Arnaldo Back MD, on 01/30/2017 16:37 .R/
[2017-01-30] MEDS ORDERED: SOD CHLORIDE 0.9% 250 ML IV* ONE (16:50)
[2017-01-30] MEDS: EPOETIN 10000 UNITS/1 ML INJ (ESRD) SC SCH (17:33)
--- NOTE | 2017-01-30 18:25 | CONS ---
Date/Time of Note Date/Time of Note DATE: 01/30/17 TIME: 18:23 Assessment/Plan Assessment/Plan Additional Assessment/Plan as above cont current antibiotics Consultation Date/Type/Reason Admit Date/Time Jan 16, 2017 at 22:45 Initial Consult Date 01/18/17 Type of Consultation: Pulmonary Referring Provider: SHAMA LOPEZ MD 24 HR Interval Summary Free Text/Dictation pt alert non verbal Exam/Review of Systems Vital Signs Vitals Vital Signs Date Time Temp Pulse Resp B/P Pulse Ox O2 Delivery O2 Flow Rate FiO2 01/30/17 16:17 100 01/30/17 15:33 97.7 16 112/53 96 01/30/17 14:25 21 01/30/17 08:10 Nasal Cannula 2.0 Intake and Output 01/29/17 01/29/17 01/30/17 15:00 23:00 07:00 Intake Total 900 ml 600 ml Output Total 340 ml 250 ml Balance 560 ml 350 ml Exam gastrostomy not much pus cult pos for klebsiella and jhon on bactrim and augmentin Results Result Diagram: 01/30/17 1608 01/30/17 1142 Results 24 hrs Laboratory Tests Test 01/30/17 00:17 01/30/17 05:44 01/30/17 11:42 01/30/17 11:46 Bedside Glucose 135 211 236 H White Blood Count 12.3 H Red Blood Count 2.69 L Hemoglobin 7.2 L Hematocrit 24.7 L Mean Corpuscular Volume 91.8 Mean Corpuscular Hemoglobin 26.8 L Mean Corpuscular Hemoglobin Concent 29.1 L Red Cell Distribution Width 18.6 H Platelet Count 309 Mean Platelet Volume 10.2 Neutrophils % 67.2 Lymphocytes % 20.2 Monocytes % 8.8 Eosinophils % 2.7 Basophils % 0.2 Nucleated Red Blood Cells % 0.0 Neutrophils # 8.3 H Lymphocytes # 2.5 Monocytes # 1.1 H Eosinophils # 0.3 Basophils # 0.0 Nucleated Red Blood Cells # 0.0 Sodium Level 143 Potassium Level 4.4 Chloride Level 101 Carbon Dioxide Level 30 Anion Gap 16 Blood Urea Nitrogen 65 H Creatinine 1.38 H Glucose Level 219 Calcium Level 7.9 L Phosphorus Level 4.3 Magnesium Level 1.9 Total Bilirubin 0.0 L Direct Bilirubin 0.00 Indirect Bilirubin 0.0 Aspartate Amino Transf (AST/SGOT) 27 Alanine Aminotransferase (ALT/SGPT) 27 Alkaline Phosphatase 182 H Total Protein 5.6 L Albumin 2.3 L Globulin 3.30 H Albumin/Globulin Ratio 0.69 Test 01/30/17 16:08 01/30/17 17:28 White Blood Count 13.4 H Red Blood Count 2.89 L Hemoglobin 7.7 L Hematocrit 26.5 L Mean Corpuscular Volume 91.7 Mean Corpuscular Hemoglobin 26.6 L Mean Corpuscular Hemoglobin Concent 29.1 L Red Cell Distribution Width 18.6 H Platelet Count 327 Mean Platelet Volume 10.2 Neutrophils % 64.7 Lymphocytes % 22.0 Monocytes % 9.8 Eosinophils % 2.6 Basophils % 0.2 Nucleated Red Blood Cells % 0.0 Neutrophils # 8.7 H Lymphocytes # 3.0 H Monocytes # 1.3 H Eosinophils # 0.4 Basophils # 0.0 Nucleated Red Blood Cells # 0.0 Bedside Glucose 204 Medications Medications Current Medications Miscellaneous Information 1 ea NOTE XX ; Start 01/16/17 at 23:30 Glucose (Glutose) 15 gm Q15M PRN PO DECREASED GLUCOSE; Start 01/16/17 at 23:30 Glucose (Glutose) 22.5 gm Q15M PRN PO DECREASED GLUCOSE; Start 01/16/17 at 23: 30 Dextrose (D50w Syringe) 25 ml Q15M PRN IV DECREASED GLUCOSE Last administered on 01/22/17 20:54; Admin Dose 25 ML; Start 01/16/17 at 23:30 Dextrose (D50w Syringe) 50 ml Q15M PRN IV DECREASED GLUCOSE; Start 01/16/17 at 23:30 Glucagon (Glucagen) 1 mg Q15M PRN IM DECREASED GLUCOSE; Start 01/16/17 at 23:30 Glucose (Glutose) 15 gm Q15M PRN BUCCAL DECREASED GLUCOSE; Start 01/16/17 at 23 :30 Latanoprost (Xalatan) 1 drop HS BOTH EYES Last administered on 01/29/17 20:14 ; Admin Dose 1 DROP; Start 01/17/17 at 21:00 Epoetin Raj (Epogen (Esrd)) 10,000 units TuThSa@17 SC Last administered on 17:33; Admin Dose 10,000 UNITS; Start 01/18/17 at 17:00 Ondansetron HCl (Zofran Inj) 4 mg Q6H PRN IV NAUSEA AND/OR VOMITING; Start at 00:30 Collagenase (Santyl) 1 applic DAILY TOP Last administered on 01/30/17 09:29; Admin Dose 1 APPLIC; Start 01/18/17 at 16:00 Collagenase (Santyl) 1 applic PRN PRN TOP WOUND CARE; Start 01/18/17 at 15:00 Enoxaparin Sodium (Lovenox) 30 mg DAILY SC Last administered on 01/30/17 09:49 ; Admin Dose 30 MG; Start 01/20/17 at 09:00 Bisacodyl (Dulcolax Supp) 10 mg BID PRN [place] CONSTIPATION; Start 01/20/17 at 17: 00 Sodium Biphosphate/ Sodium Phosphate (Fleet Enema) 133 ml BID PRN [place] CONSTIPATION; Start 01/20/17 at 17:00 Morphine Sulfate (morphine) 2 mg Q4H PRN IV PAIN Last administered on 20:58; Admin Dose 2 MG; Start 01/22/17 at 16:00 Ferrous Sulfate (Feosol Liquid Cup) 300 mg DAILY GTB Last administered on 09:20; Admin Dose 300 MG; Start 01/24/17 at 16:30 Insulin Aspart (Novolog Insulin Pen) NOVOLOG *MODERATE* ALGORI... Q6 SC Last administered on 01/30/17 17:36; Admin Dose 4 UNIT; Start 01/25/17 at 00:00 Pantoprazole (Protonix Iv) 40 mg DAILY@06 IV Last administered on 01/30/17 05: 40; Admin Dose 40 MG; Start 01/26/17 at 06:00 Fluconazole (Diflucan) 100 mg DAILY NGT Last administered on 01/30/17 09:20; Admin Dose 100 MG; Start 01/28/17 at 10:00 Acetaminophen (Tylenol Liquid) 650 mg Q6H PRN GTB PAIN AND OR ELEVATED TEMP Last administered on 01/28/17 11:51; Admin Dose 650 MG; Start 01/28/17 at 13:30 Metoprolol Tartrate (Lopressor) 50 mg BID GTB Last administered on 01/29/17 20 :15; Admin Dose 50 MG; Start 01/28/17 at 21:00 Insulin Glargine (Lantus) 35 unit DAILY@08 SC Last administered on 01/30/17 09 :52; Admin Dose 35 UNIT; Start 01/30/17 at 08:00 Trimethoprim/ Sulfamethoxazole (Bactrim (Ds)) 1 tab HS GTB Last administered on 01/29/17 20:15; Admin Dose 1 TAB; Start 01/29/17 at 21:00 Amoxicillin/ Clavulanate Potassium (Augmentin) 500 mg QHS GTB Last administered on 01/29/17 21:12; Admin Dose 500 MG; Start 01/29/17 at 21:00 Neomycin/ Polymyxin/ Bacitracin 1 applic 1 applic DAILY TOP ; Start 01/31/17 at 09:00 Bumetanide/ Dextrose (Bumex/D5W) 250 ml @ 10 mls/hr Q24H IV Last administered on 01/30/17 15:38; Admin Dose 10 MLS/HR; Start 01/30/17 at 13:30 CIELO SANCHEZ MD Jan 30, 2017 18:25
[2017-01-30] MEDS: AMOXICILLIN/CLAV 500 MG TAB GTB SCH (20:20)
[2017-01-30] MEDS: LATANOPROST 0.005% 2.5 ML OPH BOTH EYES SCH (20:47)
[2017-01-30] MEDS: TRIMETHOPRIM/SULFAMETHOX (DS) TAB GTB SCH (20:47)
[2017-01-30] MEDS: morphine 2 MG INJ IV PRN (20:48)
[2017-01-31] VITALS (18 sets, daily range): BP systolic 95–115; BP diastolic 50–68; PULSE 85–102; RESP 16–19
[2017-01-31] MEDS: INSULIN ASPART [NOVOLOG] 3 ML PEN SC SCH ×5 (01:24→22:07)
[2017-01-31] MEDS: LEVALBUTEROL (NEB) 0.31 MG/3 ML AMP HHN SCH ×4 (02:00→20:00)
--- NOTE | 2017-01-31 04:04 | PN ---
DATE: 01/21/2017 CHIEF COMPLAINT: Difficulty in swallowing. SUBJECTIVE DATA: The patient admitted with migration of the G- tube. She had infected gastrostomy at this time. OBJECTIVE DATA: On examination, the gastrostomy site appears to be healing better, not much of infection. PLAN: At this time, we will proceed with a percutaneous endoscopic gastrostomy tube placement when schedule available in the GI lab. Dictated By: Jignesh Helm MD /sari/joo /Document#: [id number] CC: Jignesh Helm MD; Dr. Castillo; Dr. Ash;*EndCC*
[2017-01-31] MEDS: PANTOPRAZOLE 40 MG INJ IV SCH (06:12)
[2017-01-31 07:58] LABS: BASOPHILS % 0.3 % (0.0-2.0); EOSINOPHILS # 0.3 10^3/ul (0.0-0.5); EOSINOPHILS % 2.8 % (0.0-7.0); HEMATOCRIT 28.9 % (37.0-47.0); HEMOGLOBIN 8.9 g/dl (12.0-16.0); LYMPHOCYTES # 2.5 10^3/ul (0.8-2.9); LYMPHOCYTES % 21.2 % (15.0-51.0); MEAN CORPUSCULAR HEMOGLOBIN 28.3 pg (29.0-33.0); MEAN CORPUSCULAR HGB CONC 30.8 g/dl (32.0-37.0); MEAN CORPUSCULAR VOLUME 91.7 fl (82.0-101.0); MEAN PLATELET VOLUME 10.3 fl (7.4-10.4); MONOCYTE # 1.1 10^3/ul (0.3-0.9); MONOCYTES % 9.1 % (0.0-11.0); NEUTROPHIL # 7.8 10^3/ul (1.6-7.5); NEUTROPHILS % 65.8 % (39.0-77.0); PLATELET COUNT 335 10^3/UL (140-415); RED BLOOD COUNT 3.15 10^6/ul (4.20-5.40); RED CELL DISTRIBUTION WIDTH 17.6 % (11.5-14.5); WHITE BLOOD COUNT 11.8 10^3/ul (4.8-10.8)
[2017-01-31] MEDS: IPRATROPIUM (NEB) 0.5 MG/2.5 ML AMP HHN SCH ×3 (08:00→20:00)
[2017-01-31] MEDS: COLLAGENASE 30 GM TUBE TOP SCH (09:00)
[2017-01-31] MEDS: FLUCONAZOLE 100 MG TAB NGT SCH (09:00)
[2017-01-31 09:01] LABS: ALBUMIN 2.4 g/dl (3.3-4.9); ALBUMIN/GLOBULIN RATIO 0.7; CALCIUM 8.2 mg/dl (8.4-10.2); CREATININE 1.43 mg/dl (0.44-1.00); POTASSIUM 4.3 mmol/L (3.5-5.1); TOTAL PROTEIN 5.8 g/dl (6.1-8.1)
[2017-01-31] MEDS: FERROUS SULFATE 60 MG/ML 5ML CUP GTB SCH (10:05)
[2017-01-31] MEDS: METOPROLOL 50 MG TAB GTB SCH ×2 (10:05→22:07)
[2017-01-31] MEDS: NEOMYC/POLYMYX/BACIT 30 GM OINT TOP SCH (10:05)
[2017-01-31] MEDS: ENOXAPARIN 30 MG/0.3 ML SYG SC SCH (10:07)
[2017-01-31] MEDS: INSULIN GLARGINE [LANtus] 3 ML PEN SC SCH (10:08)
--- NOTE | 2017-01-31 11:44 | CONS ---
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 culture the wound site and continue with vanco/zosyn 01/18 - g-tube wound cx is NGTD 01/19 - g-tube wound cx has scant CoNS, doubt this is significant 01/20 - await decision regarding g-tube re-insertion 01/21 - pt is too lethargic for swallow eval to be done, re-attempt today 01/22 - pt to get new g-tube placed today 01/23 - unable to get g-tube yesterday, re-scheduled for today 01/24 - pt got G-tube and TF restarted no abd pain 01/27 - looks benign and non tender 01/28 - new g-tube in place 2) choleycystitis pt has had a drain in place for this until she is ready for surgery will cx the fluid that is present 01/18 - AMBROSE drain cx has growth but too young continue with vanco/zosyn CT showed distending GB and gallstones but no fluid around the GB 01/19 - AMBROSE drain is growing regular klebsiella and MRSA due to kleb +ESBL in urine will change zosyn to merrem, to continue with vanco contact isolation ordered 01/20 - continue with vanco/merrem at present 01/22 - WBC almost back to normal day 01/13 of vanco and day 4/7 of merrem likely will change to po augmentin/bactrim in 3 days if WBC is ok 01/23 - no new recs 01/24 - continue with vanco/merrem thru 01/25 then change to po augmentin/bactrim 01/27 - due to elevated wbc, continue with vanco/merrem and re-cx the GB fluid 01/28 - wbc is better, cx from GB fluid is NGTD d/c vanco/merrem and start augmentin/bactrim 01/30 - stable, slight increase in WBC GB fluid only grew kleb and yeast sensitive to the augmentin will check nasal to see if isolation can be d/c'd 01/31 - wbc is back down continue with augmentin/diflucan thru 02/03 3) recent STEMI and hx of CABG 4) renal failure pt has very good creatinine but is still receiving dialysis she also has distended bladder by CT will get u/a and urine cx, nurse to straight cath vanco/zosyn should cover 5) sacral ulcer unable to see nurse to get picture 01/18 - no sign for infection according to notes 6) UTI 01/18 - pus is coming out from guevara urine cx is growing GNR continue with zosyn as WBC is decreasing 01/19 - urine cx has kleb +ESBL change zosyn to merrem merrem to be given after HD on dialysis days 01/20 - no change 01/21 - pt's urine output is picking up 01/22 - day 10/11 of merrem 01/24 - day 12/11 of merrem repeat u/a and urine cx, if neg can consider stopping isolation 01/27 - re-culture urine, on merrem 01/28 - urine cx is growing yeast d/c merrem and start diflucan 7) R pleural effusion with possible consolidation 01/18 - no phlegm production on vanco/zosyn at present will order nasal for MRSA pt to possibly get R thorancentesis 01/19 - pleural fluid does not appear to be infected with low WBC count and less than 50% PMN's will check LDH in serum to verify if exudative or transudative 01/20 - LDH results consistent with exudative process, cx remain NGTD 01/21 - pleural fluid cx remains NGTD 01/22 - pleural cx was neg 8) 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 01/20 - no sign of cellulitis around these toes 01/22 - stable 9) leukocytosis clinically pt looks better re culture urine, blood, and GB fluid maintain on vanco/merrem CXR was not impressive for new lung infection and her breathing is stable 01/28 - wbc is improved blood cx and wound cx (AMBROSE fluid) are NGTD urine is growing yeast and will start diflucan d/c vanco/merrem and start augmentin/bactrim, likely just for a few days 01/31 - continue with augmentin thru 02/03, will d/c bactrim Problems: Consultation Date/Type/Reason Admit Date/Time Jan 16, 2017 at 22:45 Initial Consult Date 01/17/17 Type of Consultation: ID Referring Provider: SHAMA LOPEZ MD 24 HR Interval Summary Free Text/Dictation no new problems Exam/Review of Systems Vital Signs Vitals Vital Signs Date Time Temp Pulse Resp B/P Pulse Ox O2 Delivery O2 Flow Rate FiO2 01/31/17 08:08 99 01/31/17 08:00 16 01/31/17 07:29 97.8 111/53 97 01/30/17 19:42 21 01/30/17 08:10 Nasal Cannula 2.0 Intake and Output 01/30/17 01/30/17 01/31/17 15:00 23:00 07:00 Intake Total 1015 ml 1395 ml Output Total 550 ml 800 ml Balance 465 ml 595 ml Exam Constitutional: alert, oriented ENMT: mucosa pink and moist Respiratory: clear to auscultation Cardiovascular: regular rate and rhythm Gastrointestinal: non-tender, soft Results Result Diagram: 01/31/17 0635 01/31/17 0635 Results 24 hrs Laboratory Tests Test 01/30/17 11:42 01/30/17 11:46 01/30/17 16:08 01/30/17 17:28 White Blood Count 12.3 H 13.4 H Red Blood Count 2.69 L 2.89 L Hemoglobin 7.2 L 7.7 L Hematocrit 24.7 L 26.5 L Mean Corpuscular Volume 91.8 91.7 Mean Corpuscular Hemoglobin 26.8 L 26.6 L Mean Corpuscular Hemoglobin Concent 29.1 L 29.1 L Red Cell Distribution Width 18.6 H 18.6 H Platelet Count 309 327 Mean Platelet Volume 10.2 10.2 Neutrophils % 67.2 64.7 Lymphocytes % 20.2 22.0 Monocytes % 8.8 9.8 Eosinophils % 2.7 2.6 Basophils % 0.2 0.2 Nucleated Red Blood Cells % 0.0 0.0 Neutrophils # 8.3 H 8.7 H Lymphocytes # 2.5 3.0 H Monocytes # 1.1 H 1.3 H Eosinophils # 0.3 0.4 Basophils # 0.0 0.0 Nucleated Red Blood Cells # 0.0 0.0 Sodium Level 143 Potassium Level 4.4 Chloride Level 101 Carbon Dioxide Level 30 Anion Gap 16 Blood Urea Nitrogen 65 H Creatinine 1.38 H Glucose Level 219 Calcium Level 7.9 L Phosphorus Level 4.3 Magnesium Level 1.9 Total Bilirubin 0.0 L Direct Bilirubin 0.00 Indirect Bilirubin 0.0 Aspartate Amino Transf (AST/SGOT) 27 Alanine Aminotransferase (ALT/SGPT) 27 Alkaline Phosphatase 182 H Total Protein 5.6 L Albumin 2.3 L Globulin 3.30 H Albumin/Globulin Ratio 0.69 Bedside Glucose 236 H 204 Test 01/31/17 01:17 01/31/17 06:15 01/31/17 06:35 01/31/17 09:06 Bedside Glucose 169 157 190 White Blood Count 11.8 H Red Blood Count 3.15 L Hemoglobin 8.9 L Hematocrit 28.9 L Mean Corpuscular Volume 91.7 Mean Corpuscular Hemoglobin 28.3 L Mean Corpuscular Hemoglobin Concent 30.8 L Red Cell Distribution Width 17.6 H Platelet Count 335 Mean Platelet Volume 10.3 Neutrophils % 65.8 Lymphocytes % 21.2 Monocytes % 9.1 Eosinophils % 2.8 Basophils % 0.3 Nucleated Red Blood Cells % 0.0 Neutrophils # 7.8 H Lymphocytes # 2.5 Monocytes # 1.1 H Eosinophils # 0.3 Basophils # 0.0 Nucleated Red Blood Cells # 0.0 Sodium Level 143 Potassium Level 4.3 Chloride Level 100 Carbon Dioxide Level 30 Anion Gap 17 H Blood Urea Nitrogen 68 H Creatinine 1.43 H Glucose Level 144 # Calcium Level 8.2 L Total Bilirubin 0.0 L Direct Bilirubin 0.00 Indirect Bilirubin 0.0 Aspartate Amino Transf (AST/SGOT) 33 Alanine Aminotransferase (ALT/SGPT) 29 Alkaline Phosphatase 175 H Total Protein 5.8 L Albumin 2.4 L Globulin 3.40 H Albumin/Globulin Ratio 0.70 Medications Medications Current Medications Miscellaneous Information 1 ea NOTE XX ; Start 01/16/17 at 23:30 Glucose (Glutose) 15 gm Q15M PRN PO DECREASED GLUCOSE; Start 01/16/17 at 23:30 Glucose (Glutose) 22.5 gm Q15M PRN PO DECREASED GLUCOSE; Start 01/16/17 at 23: 30 Dextrose (D50w Syringe) 25 ml Q15M PRN IV DECREASED GLUCOSE Last administered on 01/22/17t 20:54; Admin Dose 25 ML; Start 01/16/17 at 23:30 Dextrose (D50w Syringe) 50 ml Q15M PRN IV DECREASED GLUCOSE; Start 01/16/17 at 23:30 Glucagon (Glucagen) 1 mg Q15M PRN IM DECREASED GLUCOSE; Start 01/16/17 at 23:30 Glucose (Glutose) 15 gm Q15M PRN BUCCAL DECREASED GLUCOSE; Start 01/16/17 at 23 :30 Latanoprost (Xalatan) 1 drop HS BOTH EYES Last administered on 01/30/17 20:47 ; Admin Dose 1 DROP; Start 01/17/17 at 21:00 Epoetin Raj (Epogen (Esrd)) 10,000 units TuThSa@17 SC Last administered on 17:33; Admin Dose 10,000 UNITS; Start 01/18/17 at 17:00 Ondansetron HCl (Zofran Inj) 4 mg Q6H PRN IV NAUSEA AND/OR VOMITING; Start at 00:30 Collagenase (Santyl) 1 applic DAILY TOP Last administered on 01/31/17 09:00; Admin Dose 1 APPLIC; Start 01/18/17 at 16:00 Collagenase (Santyl) 1 applic PRN PRN TOP WOUND CARE; Start 01/18/17 at 15:00 Enoxaparin Sodium (Lovenox) 30 mg DAILY SC Last administered on 01/31/17 10:07 ; Admin Dose 30 MG; Start 01/20/17 at 09:00 Bisacodyl (Dulcolax Supp) 10 mg BID PRN [place] CONSTIPATION; Start 01/20/17 at 17: 00 Sodium Biphosphate/ Sodium Phosphate (Fleet Enema) 133 ml BID PRN [place] CONSTIPATION; Start 01/20/17 at 17:00 Morphine Sulfate (morphine) 2 mg Q4H PRN IV PAIN Last administered on 20:48; Admin Dose 2 MG; Start 01/22/17 at 16:00 Ferrous Sulfate (Feosol Liquid Cup) 300 mg DAILY GTB Last administered on 10:05; Admin Dose 300 MG; Start 01/24/17 at 16:30 Insulin Aspart (Novolog Insulin Pen) NOVOLOG *MODERATE* ALGORI... Q6 SC Last administered on 01/31/17 06:25; Admin Dose 2 UNIT; Start 01/25/17 at 00:00 Pantoprazole (Protonix Iv) 40 mg DAILY@06 IV Last administered on 01/31/17 06: 12; Admin Dose 40 MG; Start 01/26/17 at 06:00 Fluconazole (Diflucan) 100 mg DAILY NGT Last administered on 01/30/17 09:20; Admin Dose 100 MG; Start 01/28/17 at 10:00 Acetaminophen (Tylenol Liquid) 650 mg Q6H PRN GTB PAIN AND OR ELEVATED TEMP Last administered on 01/28/17 11:51; Admin Dose 650 MG; Start 01/28/17 at 13:30 Metoprolol Tartrate (Lopressor) 50 mg BID GTB Last administered on 01/31/17 10 :05; Admin Dose 50 MG; Start 01/28/17 at 21:00 Insulin Glargine (Lantus) 35 unit DAILY@08 SC Last administered on 01/31/17 10 :08; Admin Dose 35 UNIT; Start 01/30/17 at 08:00 Trimethoprim/ Sulfamethoxazole (Bactrim (Ds)) 1 tab HS GTB Last administered on 01/30/17 20:47; Admin Dose 1 TAB; Start 01/29/17 at 21:00 Amoxicillin/ Clavulanate Potassium (Augmentin) 500 mg QHS GTB Last administered on 01/29/17 21:12; Admin Dose 500 MG; Start 01/29/17 at 21:00 Neomycin/ Polymyxin/ Bacitracin 1 applic 1 applic DAILY TOP Last administered on 01/31/17 10:05; Admin Dose 1 APPLIC; Start 01/31/17 at 09:00 Bumetanide/ Dextrose (Bumex/D5W) 250 ml @ 10 mls/hr Q24H IV Last administered on 01/30/17 15:38; Admin Dose 10 MLS/HR; Start 01/30/17 at 13:30 RT GOODEN MD Jan 31, 2017 11:44
--- NOTE | 2017-01-31 12:12 | CONS ---
Date/Time of Note Date/Time of Note DATE: 01/31/17 TIME: 12:07 Assessment/Plan Assessment/Plan Chief Complaint/Hosp Course Impression: 1. Renal failure. Her serum creatinine has been low. Her serum creatinine today was 1.43 with a BUN of 68. She is putting out more urine urine, 1350 yesterday. She is now on a Bumex drip. I suspect her kidneys are recovering and I am hopeful this will continue and dialysis will only be needed intermittently if at all. Will continue to monitor her daily and urine output. 2. Multiple medical problems including insulin-dependent diabetes mellitus, atherosclerotic heart disease with acute RI and status post cardiac arrest with acute renal failure and anoxic encephalopathy, congestive heart failure, anemia of chronic disease, malnutrition, dysphagia requiring PEG placement , urinary tract infection , acute cholecystitis with drainage tube in place, peripheral vascular disease, history of her respiratory failure, history of acute cholecystitis with gallbladder drainage tube in place . She was admitted now because her gastric feeding tube dislodged and some of her feeding went into her abdominal cavity. She was thought to be septic at the time of admission. 3. She seems more comfortable today. Plan: 1. next dialysis to be determined according to labs and urine output. 2. Continue Epogen 5. We will continue Bumex drip for now Problems: Consultation Date/Type/Reason Admit Date/Time Jan 16, 2017 at 22:45 Initial Consult Date 01/18/17 Type of Consultation: ID Referring Provider: SHAMA LOPEZ MD 24 HR Interval Summary Free Text/Dictation She had hemodialysis treatment this morning. She is awake and alert at this time. Her is in the room with her. Constitutional: no complaints Exam/Review of Systems Vital Signs Vitals Vital Signs Date Time Temp Pulse Resp B/P Pulse Ox O2 Delivery O2 Flow Rate FiO2 01/31/17 11:37 98.2 79 16 115/65 97 01/30/17 19:42 21 01/30/17 08:10 Nasal Cannula 2.0 Intake and Output 01/30/17 01/30/17 01/31/17 14:59 22:59 06:59 Intake Total 1015 ml 1395 ml Output Total 550 ml 800 ml Balance 465 ml 595 ml Exam Constitutional: alert, frail, obese, oriented ENMT: nl external ears & nose, nl lips & teeth, nl nasal mucosa & septum Respiratory: clear to auscultation, diminished breath sounds Cardiovascular: edema, regular rate and rhythm Gastrointestinal: non-tender, soft Extremities: edema Results Result Diagram: 01/31/17 0635 01/31/17 0635 Results 24 hrs Laboratory Tests Test 01/30/17 16:08 01/30/17 17:28 01/31/17 01:17 01/31/17 06:15 White Blood Count 13.4 H Red Blood Count 2.89 L Hemoglobin 7.7 L Hematocrit 26.5 L Mean Corpuscular Volume 91.7 Mean Corpuscular Hemoglobin 26.6 L Mean Corpuscular Hemoglobin Concent 29.1 L Red Cell Distribution Width 18.6 H Platelet Count 327 Mean Platelet Volume 10.2 Neutrophils % 64.7 Lymphocytes % 22.0 Monocytes % 9.8 Eosinophils % 2.6 Basophils % 0.2 Nucleated Red Blood Cells % 0.0 Neutrophils # 8.7 H Lymphocytes # 3.0 H Monocytes # 1.3 H Eosinophils # 0.4 Basophils # 0.0 Nucleated Red Blood Cells # 0.0 Bedside Glucose 204 169 157 Test 01/31/17 06:35 01/31/17 09:06 White Blood Count 11.8 H Red Blood Count 3.15 L Hemoglobin 8.9 L Hematocrit 28.9 L Mean Corpuscular Volume 91.7 Mean Corpuscular Hemoglobin 28.3 L Mean Corpuscular Hemoglobin Concent 30.8 L Red Cell Distribution Width 17.6 H Platelet Count 335 Mean Platelet Volume 10.3 Neutrophils % 65.8 Lymphocytes % 21.2 Monocytes % 9.1 Eosinophils % 2.8 Basophils % 0.3 Nucleated Red Blood Cells % 0.0 Neutrophils # 7.8 H Lymphocytes # 2.5 Monocytes # 1.1 H Eosinophils # 0.3 Basophils # 0.0 Nucleated Red Blood Cells # 0.0 Sodium Level 143 Potassium Level 4.3 Chloride Level 100 Carbon Dioxide Level 30 Anion Gap 17 H Blood Urea Nitrogen 68 H Creatinine 1.43 H Glucose Level 144 # Calcium Level 8.2 L Total Bilirubin 0.0 L Direct Bilirubin 0.00 Indirect Bilirubin 0.0 Aspartate Amino Transf (AST/SGOT) 33 Alanine Aminotransferase (ALT/SGPT) 29 Alkaline Phosphatase 175 H Total Protein 5.8 L Albumin 2.4 L Globulin 3.40 H Albumin/Globulin Ratio 0.70 Bedside Glucose 190 Medications Medications Current Medications Miscellaneous Information 1 ea NOTE XX ; Start 01/16/17 at 23:30 Glucose (Glutose) 15 gm Q15M PRN PO DECREASED GLUCOSE; Start 01/16/17 at 23:30 Glucose (Glutose) 22.5 gm Q15M PRN PO DECREASED GLUCOSE; Start 01/16/17 at 23: 30 Dextrose (D50w Syringe) 25 ml Q15M PRN IV DECREASED GLUCOSE Last administered on 01/22/17 20:54; Admin Dose 25 ML; Start 01/16/17 at 23:30 Dextrose (D50w Syringe) 50 ml Q15M PRN IV DECREASED GLUCOSE; Start 01/16/17 at 23:30 Glucagon (Glucagen) 1 mg Q15M PRN IM DECREASED GLUCOSE; Start 01/16/17 at 23:30 Glucose (Glutose) 15 gm Q15M PRN BUCCAL DECREASED GLUCOSE; Start 01/16/17 at 23 :30 Latanoprost (Xalatan) 1 drop HS BOTH EYES Last administered on 01/30/17 20:47 ; Admin Dose 1 DROP; Start 01/17/17 at 21:00 Epoetin Raj (Epogen (Esrd)) 10,000 units TuThSa@17 SC Last administered on 17:33; Admin Dose 10,000 UNITS; Start 01/18/17 at 17:00 Ondansetron HCl (Zofran Inj) 4 mg Q6H PRN IV NAUSEA AND/OR VOMITING; Start at 00:30 Collagenase (Santyl) 1 applic DAILY TOP Last administered on 01/31/17 09:00; Admin Dose 1 APPLIC; Start 01/18/17 at 16:00 Collagenase (Santyl) 1 applic PRN PRN TOP WOUND CARE; Start 01/18/17 at 15:00 Enoxaparin Sodium (Lovenox) 30 mg DAILY SC Last administered on 01/31/17 10:07 ; Admin Dose 30 MG; Start 01/20/17 at 09:00 Bisacodyl (Dulcolax Supp) 10 mg BID PRN [place] CONSTIPATION; Start 01/20/17 at 17: 00 Sodium Biphosphate/ Sodium Phosphate (Fleet Enema) 133 ml BID PRN [place] CONSTIPATION; Start 01/20/17 at 17:00 Morphine Sulfate (morphine) 2 mg Q4H PRN IV PAIN Last administered on 20:48; Admin Dose 2 MG; Start 01/22/17 at 16:00 Ferrous Sulfate (Feosol Liquid Cup) 300 mg DAILY GTB Last administered on 10:05; Admin Dose 300 MG; Start 01/24/17 at 16:30 Insulin Aspart (Novolog Insulin Pen) NOVOLOG *MODERATE* ALGORI... Q6 SC Last administered on 01/31/17 06:25; Admin Dose 2 UNIT; Start 01/25/17 at 00:00 Pantoprazole (Protonix Iv) 40 mg DAILY@06 IV Last administered on 01/31/17 06: 12; Admin Dose 40 MG; Start 01/26/17 at 06:00 Fluconazole (Diflucan) 100 mg DAILY NGT Last administered on 01/30/17 09:20; Admin Dose 100 MG; Start 01/28/17 at 10:00 Acetaminophen (Tylenol Liquid) 650 mg Q6H PRN GTB PAIN AND OR ELEVATED TEMP Last administered on 01/28/17 11:51; Admin Dose 650 MG; Start 01/28/17 at 13:30 Metoprolol Tartrate (Lopressor) 50 mg BID GTB Last administered on 01/31/17 10 :05; Admin Dose 50 MG; Start 01/28/17 at 21:00 Insulin Glargine (Lantus) 35 unit DAILY@08 SC Last administered on 01/31/17 10 :08; Admin Dose 35 UNIT; Start 01/30/17 at 08:00 Amoxicillin/ Clavulanate Potassium (Augmentin) 500 mg QHS GTB Last administered on 01/29/17 21:12; Admin Dose 500 MG; Start 01/29/17 at 21:00 Neomycin/ Polymyxin/ Bacitracin 1 applic 1 applic DAILY TOP Last administered on 01/31/17 10:05; Admin Dose 1 APPLIC; Start 01/31/17 at 09:00 Bumetanide/ Dextrose (Bumex/D5W) 250 ml @ 10 mls/hr Q24H IV Last administered on 01/30/17 15:38; Admin Dose 10 MLS/HR; Start 01/30/17 at 13:30 DAMIR MARTINEZ MD Jan 31, 2017 12:12
[2017-01-31] MEDS: BUMETANIDE 25 MG in DEXTROSE 5% 150 ML IV SCH (13:30)
--- NOTE | 2017-01-31 14:23 | PN ---
Date/Time of Note Date/Time of Note DATE: 01/31/17 TIME: 14:14 Assessment/Plan VTE Prophylaxis VTE Prophylaxis Intervention: LMWH Lines/Catheters IV Catheter Type (from Nrsg): PICC Line Central line still needed: Yes Urinary Cath still in place: Yes Reason Cath still needed: other (indicate) Assessment/Plan Assessment/Plan 01/31 failed video swallow study. no acute change. transfused 1 u prbc yesterday. prep for d/c on fri is cont to be stable. 01/30 swallow study at bedside- coughing keeping npo to get video swallow study , hgb low but was it draw from picc. 01/[address] at bed side. pt awake and alert. hgb back to 7.7, pulse 100 with increased b-danyel. 01/28 hgb jump 7.7 to 13. yeast in urine -diflucan started wbc lower, pulse jumped to 120's 01/27 elevated wbc lower hgb, ct brain neg 01/[address], feedings started , belly pain improved, scheduled for dialysis 01/23 hgb by picc low again. will repeat draw by arm and if hgb<8.0 will transfuse. gtube rescheduled to today. 01/22 hgb redraw and is higher 8.9. dialysis done today, awaiting gtube reinsertion. 01/21 surg reports ok for gtube replace. gi reports will plan to place in am. cr increased 1.3 to 1.4. choking on apple sauce yesterday. 01/20 dialysis today, low sugar overall bad day today. 01/19gi- awaiting consult for replacement of g-tube. pt not appear to be able to take po nutrition appropriately. GI- g-tube dislodged causing cellulitis of the abd wall. 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 -id following and pt on vanco/zosyn---now changed due to klebsiella to vanco/ merrem . vanco merrem to be completed on 01/25, then will be on ngt augmentin/ bactrim. due to elevated wbc iv abx cont. 01/28 wbc improved abx changed to gtube aug/wilfredo. -gi replace g-tube 01/23. feeding restarted 01/24. -swallow study taking place at bedside. coughing occurred with thin liq , hard to swallow the thicken but no cough. requesting video swallow test. failed. cont gtube feeding. renal- pt producing some urine. renal following and questioning if functionality has improved. fluid overloaded, being diuresed. dialysis restarted. epogen given. -uti now off merrem and starting diflucan pulm has a right lung infiltrate and mod effusion. pulm following tapped for 1 liter removed. abx changed. been stable dm- on sliding scale. no nutrition yet, sugar running low- lantis decreased. d5 running. since feeding has been restarted the accu checks to be expected to go up and will need to increase insulin appropriately. will increase lantus back to 30 u, accu checks elevated will increase to 40u cv- h/o arrest, stent [place], cards following. b-danyel restarted. stable cholecystostomy- surg following and drain changed and growing klebsiella. on abx. doing well. anemia- discussed with renal if transfusion is necessary. pt given epogen. renal to watch. low in FE. awaiting it g-tube to be reinserted or other source for feeding. hgb better 8.2. today cbc drawn from picc and the hgb 7.4. redraw from arm and 8.9. doing fine. lower today need to draw from arm. sudden jump inhgb 13- unclear if this is a true reading. appears to false due to hgb back to 7.7 from picc. will need draw tomorrow from arm. hgb 7.2 drawn from picc. hgb low. transfuse 1 u prbc. hgb 8.9 -changing ppi to prevacid due to gtube. tachycardia- improved on higher dose b-danyel via cards poor iv access. picc in place. isolation to be d/c if the nasal swab is neg for mrsa nasal swab sent today. discharge planning for fri back to snf. get f/u appt for dialysis and surg. Subjective 24 Hr Interval Summary Free Text/Dictation will prepare for possible d/c on fri Exam/Review of Systems Vital Signs Vitals Vital Signs Date Time Temp Pulse Resp B/P Pulse Ox O2 Delivery O2 Flow Rate FiO2 01/31/17 12:14 96 01/31/17 11:37 98.2 16 115/65 97 01/30/17 19:42 21 01/30/17 08:10 Nasal Cannula 2.0 Intake and Output 01/30/17 01/30/17 01/31/17 15:00 23:00 07:00 Intake Total 1015 ml 1395 ml Output Total 550 ml 800 ml Balance 465 ml 595 ml Results Result Diagram: 01/31/17 0635 01/31/17 0635 Results 24 hrs Laboratory Tests Test 01/30/17 16:08 01/30/17 17:28 01/31/17 01:17 01/31/17 06:15 White Blood Count 13.4 H Red Blood Count 2.89 L Hemoglobin 7.7 L Hematocrit 26.5 L Mean Corpuscular Volume 91.7 Mean Corpuscular Hemoglobin 26.6 L Mean Corpuscular Hemoglobin Concent 29.1 L Red Cell Distribution Width 18.6 H Platelet Count 327 Mean Platelet Volume 10.2 Neutrophils % 64.7 Lymphocytes % 22.0 Monocytes % 9.8 Eosinophils % 2.6 Basophils % 0.2 Nucleated Red Blood Cells % 0.0 Neutrophils # 8.7 H Lymphocytes # 3.0 H Monocytes # 1.3 H Eosinophils # 0.4 Basophils # 0.0 Nucleated Red Blood Cells # 0.0 Bedside Glucose 204 169 157 Test 01/31/17 06:35 01/31/17 09:06 01/31/17 12:14 White Blood Count 11.8 H Red Blood Count 3.15 L Hemoglobin 8.9 L Hematocrit 28.9 L Mean Corpuscular Volume 91.7 Mean Corpuscular Hemoglobin 28.3 L Mean Corpuscular Hemoglobin Concent 30.8 L Red Cell Distribution Width 17.6 H Platelet Count 335 Mean Platelet Volume 10.3 Neutrophils % 65.8 Lymphocytes % 21.2 Monocytes % 9.1 Eosinophils % 2.8 Basophils % 0.3 Nucleated Red Blood Cells % 0.0 Neutrophils # 7.8 H Lymphocytes # 2.5 Monocytes # 1.1 H Eosinophils # 0.3 Basophils # 0.0 Nucleated Red Blood Cells # 0.0 Sodium Level 143 Potassium Level 4.3 Chloride Level 100 Carbon Dioxide Level 30 Anion Gap 17 H Blood Urea Nitrogen 68 H Creatinine 1.43 H Glucose Level 144 # Calcium Level 8.2 L Total Bilirubin 0.0 L Direct Bilirubin 0.00 Indirect Bilirubin 0.0 Aspartate Amino Transf (AST/SGOT) 33 Alanine Aminotransferase (ALT/SGPT) 29 Alkaline Phosphatase 175 H Total Protein 5.8 L Albumin 2.4 L Globulin 3.40 H Albumin/Globulin Ratio 0.70 Bedside Glucose 190 208 Medications Medications Current Medications Miscellaneous Information 1 ea NOTE XX ; Start 01/16/17 at 23:30 Glucose (Glutose) 15 gm Q15M PRN PO DECREASED GLUCOSE; Start 01/16/17 at 23:30 Glucose (Glutose) 22.5 gm Q15M PRN PO DECREASED GLUCOSE; Start 01/16/17 at 23: 30 Dextrose (D50w Syringe) 25 ml Q15M PRN IV DECREASED GLUCOSE Last administered on 01/22/17 20:54; Admin Dose 25 ML; Start 01/16/17 at 23:30 Dextrose (D50w Syringe) 50 ml Q15M PRN IV DECREASED GLUCOSE; Start 01/16/17 at 23:30 Glucagon (Glucagen) 1 mg Q15M PRN IM DECREASED GLUCOSE; Start 01/16/17 at 23:30 Glucose (Glutose) 15 gm Q15M PRN BUCCAL DECREASED GLUCOSE; Start 01/16/17 at 23 :30 Latanoprost (Xalatan) 1 drop HS BOTH EYES Last administered on 01/30/17 20:47 ; Admin Dose 1 DROP; Start 01/17/17 at 21:00 Epoetin Raj (Epogen (Esrd)) 10,000 units TuThSa@17 SC Last administered on 17:33; Admin Dose 10,000 UNITS; Start 01/18/17 at 17:00 Ondansetron HCl (Zofran Inj) 4 mg Q6H PRN IV NAUSEA AND/OR VOMITING; Start at 00:30 Collagenase (Santyl) 1 applic DAILY TOP Last administered on 01/31/17 09:00; Admin Dose 1 APPLIC; Start 01/18/17 at 16:00 Collagenase (Santyl) 1 applic PRN PRN TOP WOUND CARE; Start 01/18/17 at 15:00 Enoxaparin Sodium (Lovenox) 30 mg DAILY SC Last administered on 01/31/17 10:07 ; Admin Dose 30 MG; Start 01/20/17 at 09:00 Bisacodyl (Dulcolax Supp) 10 mg BID PRN [place] CONSTIPATION; Start 01/20/17 at 17: 00 Sodium Biphosphate/ Sodium Phosphate (Fleet Enema) 133 ml BID PRN [place] CONSTIPATION; Start 01/20/17 at 17:00 Morphine Sulfate (morphine) 2 mg Q4H PRN IV PAIN Last administered on 20:48; Admin Dose 2 MG; Start 01/22/17 at 16:00 Ferrous Sulfate (Feosol Liquid Cup) 300 mg DAILY GTB Last administered on 10:05; Admin Dose 300 MG; Start 01/24/17 at 16:30 Insulin Aspart (Novolog Insulin Pen) NOVOLOG *MODERATE* ALGORI... Q6 SC Last administered on 01/31/17 12:20; Admin Dose 4 UNIT; Start 01/25/17 at 00:00 Pantoprazole (Protonix Iv) 40 mg DAILY@06 IV Last administered on 01/31/17 06: 12; Admin Dose 40 MG; Start 01/26/17 at 06:00 Fluconazole (Diflucan) 100 mg DAILY NGT Last administered on 01/30/17 09:20; Admin Dose 100 MG; Start 01/28/17 at 10:00 Acetaminophen (Tylenol Liquid) 650 mg Q6H PRN GTB PAIN AND OR ELEVATED TEMP Last administered on 01/28/17 11:51; Admin Dose 650 MG; Start 01/28/17 at 13:30 Metoprolol Tartrate (Lopressor) 50 mg BID GTB Last administered on 01/31/17 10 :05; Admin Dose 50 MG; Start 01/28/17 at 21:00 Insulin Glargine (Lantus) 35 unit DAILY@08 SC Last administered on 01/31/17 10 :08; Admin Dose 35 UNIT; Start 01/30/17 at 08:00 Amoxicillin/ Clavulanate Potassium (Augmentin) 500 mg QHS GTB Last administered on 01/29/17 21:12; Admin Dose 500 MG; Start 01/29/17 at 21:00 Neomycin/ Polymyxin/ Bacitracin 1 applic 1 applic DAILY TOP Last administered on 01/31/17 10:05; Admin Dose 1 APPLIC; Start 01/31/17 at 09:00 Bumetanide/ Dextrose (Bumex/D5W) 250 ml @ 10 mls/hr Q24H IV Last administered on 01/30/17t 15:38; Admin Dose 10 MLS/HR; Start 01/30/17 at 13:30 SHAW SRINIVASAN MD Jan 31, 2017 14:23
--- NOTE | 2017-01-31 15:25 | CONS ---
Date/Time of Note Date/Time of Note DATE: 01/31/17 TIME: 15:24 Consult Date/Type/Reason Admit Date/Time Jan 16, 2017 at 22:45 Initial Consult Date 01/18/17 Type of Consultation: Pulmonary Ordering Provider: SHAMA LOPEZ MD Subjective Patient awake alert comfortable at bedside. Objective Vital Signs Date Time Temp Pulse Resp B/P Pulse Ox O2 Delivery O2 Flow Rate FiO2 01/31/17 15:23 97.9 59 16 109/68 97 01/31/17 14:22 21 01/30/17 08:10 Nasal Cannula 2.0 Intake and Output 01/30/17 01/30/17 01/31/17 15:00 23:00 07:00 Intake Total 1015 ml 1395 ml Output Total 550 ml 800 ml Balance 465 ml 595 ml Exam GENERAL: Elderly lady comfortable in room air. VITAL SIGNS: per chart NECK: Supple. No JVD or lymphadenopathy. CARDIAC EXAM: S1, S2. No added sounds or murmurs. CHEST: Diminished air entry bilaterally with few rales. ABDOMEN: Soft, nontender. No guarding or rebound. EXTREMITIES: No cyanosis, clubbing or edema +2 NEUROLOGIC: Generalized weakness. Results/Medications Result Diagram: 01/31/17 0635 01/31/17 0635 Results 24 hrs Laboratory Tests Test 01/30/17 16:08 01/30/17 17:28 01/31/17 01:17 01/31/17 06:15 White Blood Count 13.4 H Red Blood Count 2.89 L Hemoglobin 7.7 L Hematocrit 26.5 L Mean Corpuscular Volume 91.7 Mean Corpuscular Hemoglobin 26.6 L Mean Corpuscular Hemoglobin Concent 29.1 L Red Cell Distribution Width 18.6 H Platelet Count 327 Mean Platelet Volume 10.2 Neutrophils % 64.7 Lymphocytes % 22.0 Monocytes % 9.8 Eosinophils % 2.6 Basophils % 0.2 Nucleated Red Blood Cells % 0.0 Neutrophils # 8.7 H Lymphocytes # 3.0 H Monocytes # 1.3 H Eosinophils # 0.4 Basophils # 0.0 Nucleated Red Blood Cells # 0.0 Bedside Glucose 204 169 157 Test 01/31/17 06:35 01/31/17 09:06 01/31/17 12:14 White Blood Count 11.8 H Red Blood Count 3.15 L Hemoglobin 8.9 L Hematocrit 28.9 L Mean Corpuscular Volume 91.7 Mean Corpuscular Hemoglobin 28.3 L Mean Corpuscular Hemoglobin Concent 30.8 L Red Cell Distribution Width 17.6 H Platelet Count 335 Mean Platelet Volume 10.3 Neutrophils % 65.8 Lymphocytes % 21.2 Monocytes % 9.1 Eosinophils % 2.8 Basophils % 0.3 Nucleated Red Blood Cells % 0.0 Neutrophils # 7.8 H Lymphocytes # 2.5 Monocytes # 1.1 H Eosinophils # 0.3 Basophils # 0.0 Nucleated Red Blood Cells # 0.0 Sodium Level 143 Potassium Level 4.3 Chloride Level 100 Carbon Dioxide Level 30 Anion Gap 17 H Blood Urea Nitrogen 68 H Creatinine 1.43 H Glucose Level 144 # Calcium Level 8.2 L Total Bilirubin 0.0 L Direct Bilirubin 0.00 Indirect Bilirubin 0.0 Aspartate Amino Transf (AST/SGOT) 33 Alanine Aminotransferase (ALT/SGPT) 29 Alkaline Phosphatase 175 H Total Protein 5.8 L Albumin 2.4 L Globulin 3.40 H Albumin/Globulin Ratio 0.70 Bedside Glucose 190 208 Medications Current Medications Miscellaneous Information 1 ea NOTE XX ; Start 01/16/17 at 23:30 Glucose (Glutose) 15 gm Q15M PRN PO DECREASED GLUCOSE; Start 01/16/17 at 23:30 Glucose (Glutose) 22.5 gm Q15M PRN PO DECREASED GLUCOSE; Start 01/16/17 at 23: 30 Dextrose (D50w Syringe) 25 ml Q15M PRN IV DECREASED GLUCOSE Last administered on 01/22/17 20:54; Admin Dose 25 ML; Start 01/16/17 at 23:30 Dextrose (D50w Syringe) 50 ml Q15M PRN IV DECREASED GLUCOSE; Start 01/16/17 at 23:30 Glucagon (Glucagen) 1 mg Q15M PRN IM DECREASED GLUCOSE; Start 01/16/17 at 23:30 Glucose (Glutose) 15 gm Q15M PRN BUCCAL DECREASED GLUCOSE; Start 01/16/17 at 23 :30 Latanoprost (Xalatan) 1 drop HS BOTH EYES Last administered on 01/30/17 20:47 ; Admin Dose 1 DROP; Start 01/17/17 at 21:00 Epoetin Raj (Epogen (Esrd)) 10,000 units TuThSa@17 SC Last administered on 17:33; Admin Dose 10,000 UNITS; Start 01/18/17 at 17:00 Ondansetron HCl (Zofran Inj) 4 mg Q6H PRN IV NAUSEA AND/OR VOMITING; Start at 00:30 Collagenase (Santyl) 1 applic DAILY TOP Last administered on 01/31/17 09:00; Admin Dose 1 APPLIC; Start 01/18/17 at 16:00 Collagenase (Santyl) 1 applic PRN PRN TOP WOUND CARE; Start 01/18/17 at 15:00 Enoxaparin Sodium (Lovenox) 30 mg DAILY SC Last administered on 01/31/17 10:07 ; Admin Dose 30 MG; Start 01/20/17 at 09:00 Bisacodyl (Dulcolax Supp) 10 mg BID PRN [place] CONSTIPATION; Start 01/20/17 at 17: 00 Sodium Biphosphate/ Sodium Phosphate (Fleet Enema) 133 ml BID PRN [place] CONSTIPATION; Start 01/20/17 at 17:00 Morphine Sulfate (morphine) 2 mg Q4H PRN IV PAIN Last administered on 20:48; Admin Dose 2 MG; Start 01/22/17 at 16:00 Ferrous Sulfate (Feosol Liquid Cup) 300 mg DAILY GTB Last administered on 10:05; Admin Dose 300 MG; Start 01/24/17 at 16:30 Insulin Aspart (Novolog Insulin Pen) NOVOLOG *MODERATE* ALGORI... Q6 SC Last administered on 01/31/17 12:20; Admin Dose 4 UNIT; Start 01/25/17 at 00:00 Fluconazole (Diflucan) 100 mg DAILY NGT Last administered on 01/30/17 09:20; Admin Dose 100 MG; Start 01/28/17 at 10:00 Acetaminophen (Tylenol Liquid) 650 mg Q6H PRN GTB PAIN AND OR ELEVATED TEMP Last administered on 01/28/17 11:51; Admin Dose 650 MG; Start 01/28/17 at 13:30 Metoprolol Tartrate (Lopressor) 50 mg BID GTB Last administered on 01/31/17 10 :05; Admin Dose 50 MG; Start 01/28/17 at 21:00 Insulin Glargine (Lantus) 35 unit DAILY@08 SC Last administered on 01/31/17 10 :08; Admin Dose 35 UNIT; Start 01/30/17 at 08:00 Amoxicillin/ Clavulanate Potassium (Augmentin) 500 mg QHS GTB Last administered on 01/29/17 21:12; Admin Dose 500 MG; Start 01/29/17 at 21:00 Neomycin/ Polymyxin/ Bacitracin 1 applic 1 applic DAILY TOP Last administered on 01/31/17 10:05; Admin Dose 1 APPLIC; Start 01/31/17 at 09:00 Bumetanide/ Dextrose (Bumex/D5W) 250 ml @ 10 mls/hr Q24H IV Last administered on 01/30/17 15:38; Admin Dose 10 MLS/HR; Start 01/30/17 at 13:30 Lansoprazole (Prevacid) 30 mg DAILY@06 GTB ; Start 02/01/17 at 06:00 Assessment/Plan Chief Complaint/Hosp Course Assessment 1. Severe sepsis likely polymicrobial 2. Status post thoracentesis pleural fluid suggestive of transudative process given low protein however elevated LDH noted. No malignant cells noted 3. End-stage renal failure on hemodialysis 4. History ST elevation DC 5. Recent recurrent hypoxemic respiratory failure 6. Dysphagia G-tube has been dislodged. Patient has significant aspiration risk 7. Anemia likely of chronic disease 8. tachycardia noted, ? sepsis Plan 1. Broad-spectrum antibiotics per infectious diseases 2. Supplemental O2 as needed 3. Wound care 4. Pleural fluid studies noted 5. Aspiration precautions 6. Tube feeding as tolerated 7. Surgical recommendations 8. Continues hemodialysis 3 times a week. 9. Monitor H&H Discussed with patient's he wishes her transferred back to custodial facility to continue physical therapy. Agree with discharge Problems: ZANDRA ROBISON MD, [facility] Jan 31, 2017 15:25
[2017-01-31] MEDS: AMOXICILLIN/CLAV 500 MG TAB GTB SCH (22:07)
[2017-01-31] MEDS: LATANOPROST 0.005% 2.5 ML OPH BOTH EYES SCH (22:07)
[2017-02-01] VITALS (11 sets, daily range): BP systolic 93–123; BP diastolic 53–59; PULSE 82–100; RESP 16–20
[2017-02-01] MEDS: LEVALBUTEROL (NEB) 0.31 MG/3 ML AMP HHN SCH ×4 (02:00→19:23)
[2017-02-01] MEDS: INSULIN ASPART [NOVOLOG] 3 ML PEN SC SCH ×3 (06:00→17:39)
[2017-02-01] MEDS: LANSOPRAZOLE 30 MG CAP GTB SCH (06:16)
[2017-02-01] MEDS: IPRATROPIUM (NEB) 0.5 MG/2.5 ML AMP HHN SCH ×3 (07:41→19:23)
--- NOTE | 2017-02-01 08:35 | CONS ---
Date/Time of Note Date/Time of Note DATE: 02/01/17 TIME: 08:33 Assessment/Plan Assessment/Plan Problems: (1) Edema Comment: resolving... excellent UOP currently (2) ESRD (end stage renal disease) on dialysis Status: Chronic Comment: Cr down, off HD... in recovery...todays labs still pd, but no indication for HD today as of yet (3) Anemia in ESRD (end-stage renal disease) Comment: stable Consultation Date/Type/Reason Admit Date/Time Jan 16, 2017 at 22:45 Initial Consult Date 01/18/17 Type of Consultation: neph Referring Provider: SHAMA LOPEZ MD 24 HR Interval Summary Free Text/Dictation pt resting... NAD Exam/Review of Systems Vital Signs Vitals Vital Signs Date Time Temp Pulse Resp B/P Pulse Ox O2 Delivery O2 Flow Rate FiO2 02/01/17 08:11 83 02/01/17 07:41 18 97 21 02/01/17 04:41 98.1 107/57 01/30/17 08:10 Nasal Cannula 2.0 Intake and Output 01/31/17 01/31/17 02/01/17 15:00 23:00 07:00 Intake Total 400 ml 965 ml 980 ml Output Total 2400 ml 1800 ml 900 ml Balance -2000 ml -835 ml 80 ml Exam Psych: no complaints Neck: supple Respiratory: clear to auscultation Cardiovascular: regular rate and rhythm Gastrointestinal: soft Results Result Diagram: 01/31/17 0635 01/31/17 0635 Results 24 hrs Laboratory Tests Test 01/31/17 09:06 01/31/17 12:14 01/31/17 18:24 01/31/17 22:05 Bedside Glucose 190 208 121 86 Test 02/01/17 06:18 Bedside Glucose 96 Medications Medications Current Medications Miscellaneous Information 1 ea NOTE XX ; Start 01/16/17 at 23:30 Glucose (Glutose) 15 gm Q15M PRN PO DECREASED GLUCOSE; Start 01/16/17 at 23:30 Glucose (Glutose) 22.5 gm Q15M PRN PO DECREASED GLUCOSE; Start 01/16/17 at 23: 30 Dextrose (D50w Syringe) 25 ml Q15M PRN IV DECREASED GLUCOSE Last administered on 01/22/17t 20:54; Admin Dose 25 ML; Start 01/16/17 at 23:30 Dextrose (D50w Syringe) 50 ml Q15M PRN IV DECREASED GLUCOSE; Start 01/16/17 at 23:30 Glucagon (Glucagen) 1 mg Q15M PRN IM DECREASED GLUCOSE; Start 01/16/17 at 23:30 Glucose (Glutose) 15 gm Q15M PRN BUCCAL DECREASED GLUCOSE; Start 01/16/17 at 23 :30 Latanoprost (Xalatan) 1 drop HS BOTH EYES Last administered on 01/31/17 22:07 ; Admin Dose 1 DROP; Start 01/17/17 at 21:00 Epoetin Raj (Epogen (Esrd)) 10,000 units TuThSa@17 SC Last administered on 17:33; Admin Dose 10,000 UNITS; Start 01/18/17 at 17:00 Ondansetron HCl (Zofran Inj) 4 mg Q6H PRN IV NAUSEA AND/OR VOMITING; Start at 00:30 Collagenase (Santyl) 1 applic DAILY TOP Last administered on 01/31/17 09:00; Admin Dose 1 APPLIC; Start 01/18/17 at 16:00 Collagenase (Santyl) 1 applic PRN PRN TOP WOUND CARE; Start 01/18/17 at 15:00 Enoxaparin Sodium (Lovenox) 30 mg DAILY SC Last administered on 01/31/17 10:07 ; Admin Dose 30 MG; Start 01/20/17 at 09:00 Bisacodyl (Dulcolax Supp) 10 mg BID PRN [place] CONSTIPATION; Start 01/20/17 at 17: 00 Sodium Biphosphate/ Sodium Phosphate (Fleet Enema) 133 ml BID PRN [place] CONSTIPATION; Start 01/20/17 at 17:00 Morphine Sulfate (morphine) 2 mg Q4H PRN IV PAIN Last administered on 20:48; Admin Dose 2 MG; Start 01/22/17 at 16:00 Ferrous Sulfate (Feosol Liquid Cup) 300 mg DAILY GTB Last administered on 10:05; Admin Dose 300 MG; Start 01/24/17 at 16:30 Insulin Aspart (Novolog Insulin Pen) NOVOLOG *MODERATE* ALGORI... Q6 SC Last administered on 01/31/17 12:20; Admin Dose 4 UNIT; Start 01/25/17 at 00:00 Fluconazole (Diflucan) 100 mg DAILY NGT Last administered on 01/30/17 09:20; Admin Dose 100 MG; Start 01/28/17 at 10:00 Acetaminophen (Tylenol Liquid) 650 mg Q6H PRN GTB PAIN AND OR ELEVATED TEMP Last administered on 01/28/17 11:51; Admin Dose 650 MG; Start 01/28/17 at 13:30 Metoprolol Tartrate (Lopressor) 50 mg BID GTB Last administered on 01/31/17 22 :07; Admin Dose 50 MG; Start 01/28/17 at 21:00 Insulin Glargine (Lantus) 35 unit DAILY@08 SC Last administered on 01/31/17 10 :08; Admin Dose 35 UNIT; Start 01/30/17 at 08:00 Amoxicillin/ Clavulanate Potassium (Augmentin) 500 mg QHS GTB Last administered on 01/31/17 22:07; Admin Dose 500 MG; Start 01/29/17 at 21:00 Neomycin/ Polymyxin/ Bacitracin 1 applic 1 applic DAILY TOP Last administered on 01/31/17 10:05; Admin Dose 1 APPLIC; Start 01/31/17 at 09:00 Bumetanide/ Dextrose (Bumex/D5W) 250 ml @ 10 mls/hr Q24H IV Last administered on 01/30/17 15:38; Admin Dose 10 MLS/HR; Start 01/30/17 at 13:30 Lansoprazole (Prevacid) 30 mg DAILY@06 GTB Last administered on 02/01/17 06:16 ; Admin Dose 30 MG; Start 02/01/17 at 06:00 ROGELIO FELIX MD Feb 01, 2017 08:35
[2017-02-01] MEDS: FERROUS SULFATE 60 MG/ML 5ML CUP GTB SCH (09:16)
[2017-02-01] MEDS: FLUCONAZOLE 100 MG TAB NGT SCH (09:16)
[2017-02-01] MEDS: METOPROLOL 50 MG TAB GTB SCH ×2 (09:17→21:49)
[2017-02-01] MEDS: NEOMYC/POLYMYX/BACIT 30 GM OINT TOP SCH (09:17)
[2017-02-01] MEDS: COLLAGENASE 30 GM TUBE TOP SCH (09:18)
[2017-02-01] MEDS: ENOXAPARIN 30 MG/0.3 ML SYG SC SCH (09:24)
[2017-02-01] MEDS: INSULIN GLARGINE [LANtus] 3 ML PEN SC SCH (09:24)
[2017-02-01 10:35] LABS: BASOPHILS % 0.4 % (0.0-2.0); EOSINOPHILS # 0.2 10^3/ul (0.0-0.5); EOSINOPHILS % 1.5 % (0.0-7.0); HEMATOCRIT 30.8 % (37.0-47.0); HEMOGLOBIN 9.4 g/dl (12.0-16.0); LYMPHOCYTES # 2.7 10^3/ul (0.8-2.9); LYMPHOCYTES % 24.5 % (15.0-51.0); MEAN CORPUSCULAR HEMOGLOBIN 28.2 pg (29.0-33.0); MEAN CORPUSCULAR HGB CONC 30.5 g/dl (32.0-37.0); MEAN CORPUSCULAR VOLUME 92.5 fl (82.0-101.0); MEAN PLATELET VOLUME 10.1 fl (7.4-10.4); MONOCYTES % 9.3 % (0.0-11.0); NEUTROPHILS % 63.6 % (39.0-77.0); PLATELET COUNT 369 10^3/UL (140-415); RED BLOOD COUNT 3.33 10^6/ul (4.20-5.40); RED CELL DISTRIBUTION WIDTH 17.7 % (11.5-14.5)
[2017-02-01 11:02] LABS: ALBUMIN 2.5 g/dl (3.3-4.9); ALBUMIN/GLOBULIN RATIO 0.69; CALCIUM 8.4 mg/dl (8.4-10.2); CREATININE 1.16 mg/dl (0.44-1.00); MAGNESIUM 1.9 mg/dl (1.7-2.5); PHOSPHORUS 3.6 mg/dl (2.5-4.9); POTASSIUM 4.3 mmol/L (3.5-5.1); TOTAL PROTEIN 6.1 g/dl (6.1-8.1)
[2017-02-01] MEDS: BUMETANIDE 25 MG in DEXTROSE 5% 150 ML IV SCH (13:00)
--- NOTE | 2017-02-01 13:58 | PN ---
DATE: 02/01/2017 SUBJECTIVE DATA: Patient without complaint. OBJECTIVE DATA: Vital signs: Temperature 98.1, pulse of 82, respirations 18, blood pressure 93/53, oxygen saturation 98 percent on room air. General: A well-developed, well-nourished female in no acute distress, lying in bed. Skin: Mild erythema surrounding a scab right upper arm. IV site is clean, dry and intact. Chest: Decreased breath sounds bilateral bases, otherwise clear. Heart: Regular rate and rhythm. Abdomen: Soft, nontender. Normoactive bowel sounds. Extremities: Trace edema. Neurological: The patient is alert and oriented but is nonfocal. LABORATORY AND DIAGNOSTIC DATA: Hemoglobin 9.4, hematocrit 30.8. White blood cell count 11.0, platelets 369. Sodium 144, potassium 4.3, chloride 100, bicarbonate 33, BUN 46, creatinine 1.16. Blood sugar 138. Magnesium 1.9. ASSESSMENT AND PLAN: 1. Diabetes, stable with some lability intermittently. Will continue current meds and diet. 2. End-stage renal disease. Overall is improved with some urine output, and stable BUN and creatinine and electrolytes. Continue with current plan. 3. Coronary artery disease/hypertension, stable. Continue with current medications. 4. Anemia, improved. Status post transfusion. Continue to monitor. 5. Dysphagia. Patient continues to be on G-tube feeds. Continue this. 6. Cellulitis, stable. Continue with current antibiotic treatment. 7. Discharge planning. The patient continues to improve with hopes of being discharged to rehab center early this coming week. Dictated By: Ayaan Simms MD /sari/dafne /Document#: [id number]
[2017-02-01] MEDS ORDERED: ALTEPLASE (CATHFLO) 2 MG INJ CATHETER PRN (16:00)
[2017-02-01] MEDS: EPOETIN 10000 UNITS/1 ML INJ (ESRD) SC SCH (17:35)
[2017-02-01] MEDS ORDERED: LORAZEPAM 2 MG INJ IV PRN (21:00)
[2017-02-01] MEDS: AMOXICILLIN/CLAV 500 MG TAB GTB SCH (21:48)
[2017-02-01] MEDS: LATANOPROST 0.005% 2.5 ML OPH BOTH EYES SCH (21:48)
[2017-02-02] VITALS (12 sets, daily range): BP systolic 100–134; BP diastolic 49–62; PULSE 88–98; RESP 16–20
[2017-02-02] MEDS: INSULIN ASPART [NOVOLOG] 3 ML PEN SC SCH ×4 (00:54→17:53)
[2017-02-02] MEDS: LEVALBUTEROL (NEB) 0.31 MG/3 ML AMP HHN SCH ×4 (01:15→20:00)
[2017-02-02] MEDS: LANSOPRAZOLE 30 MG CAP GTB SCH (05:31)
[2017-02-02] MEDS: IPRATROPIUM (NEB) 0.5 MG/2.5 ML AMP HHN SCH ×3 (07:05→20:00)
[2017-02-02 07:35] LABS: BASOPHIL # 0.1 10^3/ul (0.0-0.1); BASOPHILS % 0.5 % (0.0-2.0); EOSINOPHILS # 0.3 10^3/ul (0.0-0.5); EOSINOPHILS % 2.4 % (0.0-7.0); HEMATOCRIT 30.9 % (37.0-47.0); HEMOGLOBIN 9.2 g/dl (12.0-16.0); LYMPHOCYTES # 2.4 10^3/ul (0.8-2.9); LYMPHOCYTES % 23.8 % (15.0-51.0); MEAN CORPUSCULAR HEMOGLOBIN 27.5 pg (29.0-33.0); MEAN CORPUSCULAR HGB CONC 29.8 g/dl (32.0-37.0); MEAN CORPUSCULAR VOLUME 92.2 fl (82.0-101.0); MEAN PLATELET VOLUME 9.9 fl (7.4-10.4); MONOCYTE # 0.9 10^3/ul (0.3-0.9); MONOCYTES % 8.8 % (0.0-11.0); NEUTROPHIL # 6.5 10^3/ul (1.6-7.5); NEUTROPHILS % 63.9 % (39.0-77.0); PLATELET COUNT 412 10^3/UL (140-415); RED BLOOD COUNT 3.35 10^6/ul (4.20-5.40); RED CELL DISTRIBUTION WIDTH 17.5 % (11.5-14.5); WHITE BLOOD COUNT 10.2 10^3/ul (4.8-10.8)
[2017-02-02 08:17] LABS: CALCIUM 8.5 mg/dl (8.4-10.2); CREATININE 1.24 mg/dl (0.44-1.00)
[2017-02-02] MEDS: COLLAGENASE 30 GM TUBE TOP SCH (08:57)
[2017-02-02] MEDS: NEOMYC/POLYMYX/BACIT 30 GM OINT TOP SCH (08:57)
[2017-02-02] MEDS: FERROUS SULFATE 60 MG/ML 5ML CUP GTB SCH (08:57)
[2017-02-02] MEDS: FLUCONAZOLE 100 MG TAB NGT SCH (08:58)
[2017-02-02] MEDS: INSULIN GLARGINE [LANtus] 3 ML PEN SC SCH (09:00)
[2017-02-02] MEDS: ENOXAPARIN 30 MG/0.3 ML SYG SC SCH (09:00)
[2017-02-02] MEDS: METOPROLOL 50 MG TAB GTB SCH ×2 (09:01→22:58)
--- NOTE | 2017-02-02 09:07 | CONS ---
Date/Time of Note Date/Time of Note DATE: 02/02/17 TIME: 09:05 Assessment/Plan Assessment/Plan Problems: (1) PAD (peripheral artery disease) Status: Chronic Comment: stable toe lesions... no progression (2) Acute on chronic renal failure Status: Chronic Comment: good UOP on the Bumex... Cr stable... no need for HD currently (3) Edema Comment: minimal... good UOP on the drip Consultation Date/Type/Reason Admit Date/Time Jan 16, 2017 at 22:45 Initial Consult Date 01/18/17 Type of Consultation: neph Referring Provider: SHAMA LOPEZ MD 24 HR Interval Summary Free Text/Dictation stable... laying flat without issues... no cp or sob on RA Exam/Review of Systems Vital Signs Vitals Vital Signs Date Time Temp Pulse Resp B/P Pulse Ox O2 Delivery O2 Flow Rate FiO2 02/02/17 08:08 97 02/02/17 07:27 98.4 16 103/49 98 02/01/17 07:41 21 01/30/17 08:10 Nasal Cannula 2.0 Intake and Output 02/01/17 02/01/17 02/02/17 15:00 23:00 07:00 Intake Total 60 ml 1085 ml 655 ml Output Total 15 ml 550 ml 1200 ml Balance 45 ml 535 ml -545 ml Exam Constitutional: alert Psych: no complaints Eyes: nl conjunctiva Neck: supple Respiratory: clear to auscultation Cardiovascular: regular rate and rhythm Gastrointestinal: soft Extremities: edema (tr) Results Result Diagram: 02/02/17 0531 02/02/17 0556 Results 24 hrs Laboratory Tests Test 02/01/17 09:15 02/01/17 09:37 02/01/17 12:31 02/01/17 17:33 Bedside Glucose 135 249 H 204 White Blood Count 11.0 H Red Blood Count 3.33 L Hemoglobin 9.4 L Hematocrit 30.8 L Mean Corpuscular Volume 92.5 Mean Corpuscular Hemoglobin 28.2 L Mean Corpuscular Hemoglobin Concent 30.5 L Red Cell Distribution Width 17.7 H Platelet Count 369 Mean Platelet Volume 10.1 Neutrophils % 63.6 Lymphocytes % 24.5 Monocytes % 9.3 Eosinophils % 1.5 Basophils % 0.4 Nucleated Red Blood Cells % 0.0 Neutrophils # 7.0 Lymphocytes # 2.7 Monocytes # 1.0 H Eosinophils # 0.2 Basophils # 0.0 Nucleated Red Blood Cells # 0.0 Sodium Level 144 Potassium Level 4.3 Chloride Level 100 Carbon Dioxide Level 33 H Anion Gap 15 Blood Urea Nitrogen 46 #H Creatinine 1.16 H Glucose Level 138 Calcium Level 8.4 Phosphorus Level 3.6 Magnesium Level 1.9 Total Bilirubin 0.0 L Direct Bilirubin 0.00 Indirect Bilirubin 0.0 Aspartate Amino Transf (AST/SGOT) 34 Alanine Aminotransferase (ALT/SGPT) 25 Alkaline Phosphatase 190 H Total Protein 6.1 Albumin 2.5 L Globulin 3.60 H Albumin/Globulin Ratio 0.69 Test 02/02/17 00:46 02/02/17 05:30 02/02/17 05:31 02/02/17 05:45 Bedside Glucose 200 125 White Blood Count 10.2 Red Blood Count 3.35 L Hemoglobin 9.2 L Hematocrit 30.9 L Mean Corpuscular Volume 92.2 Mean Corpuscular Hemoglobin 27.5 L Mean Corpuscular Hemoglobin Concent 29.8 L Red Cell Distribution Width 17.5 H Platelet Count 412 Mean Platelet Volume 9.9 Neutrophils % 63.9 Lymphocytes % 23.8 Monocytes % 8.8 Eosinophils % 2.4 Basophils % 0.5 Nucleated Red Blood Cells % 0.0 Neutrophils # 6.5 Lymphocytes # 2.4 Monocytes # 0.9 Eosinophils # 0.3 Basophils # 0.1 Nucleated Red Blood Cells # 0.0 Lab Scanned Report BLOOD TRANSFUSION Test 02/02/17 05:56 Sodium Level 144 Potassium Level 4.0 Chloride Level 97 Carbon Dioxide Level 35 H Anion Gap 16 Blood Urea Nitrogen 53 H Creatinine 1.24 H Glucose Level 109 Calcium Level 8.5 Medications Medications Current Medications Miscellaneous Information 1 ea NOTE XX ; Start 01/16/17 at 23:30 Glucose (Glutose) 15 gm Q15M PRN PO DECREASED GLUCOSE; Start 01/16/17 at 23:30 Glucose (Glutose) 22.5 gm Q15M PRN PO DECREASED GLUCOSE; Start 01/16/17 at 23: 30 Dextrose (D50w Syringe) 25 ml Q15M PRN IV DECREASED GLUCOSE Last administered on 01/22/17t 20:54; Admin Dose 25 ML; Start 01/16/17 at 23:30 Dextrose (D50w Syringe) 50 ml Q15M PRN IV DECREASED GLUCOSE; Start 01/16/17 at 23:30 Glucagon (Glucagen) 1 mg Q15M PRN IM DECREASED GLUCOSE; Start 01/16/17 at 23:30 Glucose (Glutose) 15 gm Q15M PRN BUCCAL DECREASED GLUCOSE; Start 01/16/17 at 23 :30 Latanoprost (Xalatan) 1 drop HS BOTH EYES Last administered on 02/01/17 21:48 ; Admin Dose 1 DROP; Start 01/17/17 at 21:00 Epoetin Raj (Epogen (Esrd)) 10,000 units TuThSa@17 SC Last administered on 17:35; Admin Dose 10,000 UNITS; Start 01/18/17 at 17:00 Ondansetron HCl (Zofran Inj) 4 mg Q6H PRN IV NAUSEA AND/OR VOMITING; Start at 00:30 Collagenase (Santyl) 1 applic DAILY TOP Last administered on 02/02/17 08:57; Admin Dose 1 APPLIC; Start 01/18/17 at 16:00 Collagenase (Santyl) 1 applic PRN PRN TOP WOUND CARE; Start 01/18/17 at 15:00 Enoxaparin Sodium (Lovenox) 30 mg DAILY SC Last administered on 02/02/17 09:00 ; Admin Dose 30 MG; Start 01/20/17 at 09:00 Bisacodyl (Dulcolax Supp) 10 mg BID PRN [place] CONSTIPATION; Start 01/20/17 at 17: 00 Sodium Biphosphate/ Sodium Phosphate (Fleet Enema) 133 ml BID PRN [place] CONSTIPATION; Start 01/20/17 at 17:00 Morphine Sulfate (morphine) 2 mg Q4H PRN IV PAIN Last administered on 20:48; Admin Dose 2 MG; Start 01/22/17 at 16:00 Ferrous Sulfate (Feosol Liquid Cup) 300 mg DAILY GTB Last administered on 08:57; Admin Dose 300 MG; Start 01/24/17 at 16:30 Insulin Aspart (Novolog Insulin Pen) NOVOLOG *MODERATE* ALGORI... Q6 SC Last administered on 02/02/17 00:54; Admin Dose 4 UNIT; Start 01/25/17 at 00:00 Fluconazole (Diflucan) 100 mg DAILY NGT Last administered on 02/02/17 08:58; Admin Dose 100 MG; Start 01/28/17 at 10:00 Acetaminophen (Tylenol Liquid) 650 mg Q6H PRN GTB PAIN AND OR ELEVATED TEMP Last administered on 01/28/17 11:51; Admin Dose 650 MG; Start 01/28/17 at 13:30 Metoprolol Tartrate (Lopressor) 50 mg BID GTB Last administered on 02/02/17 09 :01; Admin Dose 50 MG; Start 01/28/17 at 21:00 Insulin Glargine (Lantus) 35 unit DAILY@08 SC Last administered on 02/02/17 09 :00; Admin Dose 35 UNIT; Start 01/30/17 at 08:00 Amoxicillin/ Clavulanate Potassium (Augmentin) 500 mg QHS GTB Last administered on 02/01/17 21:48; Admin Dose 500 MG; Start 01/29/17 at 21:00 Neomycin/ Polymyxin/ Bacitracin 1 applic 1 applic DAILY TOP Last administered on 02/02/17 08:57; Admin Dose 1 APPLIC; Start 01/31/17 at 09:00 Bumetanide/ Dextrose (Bumex/D5W) 250 ml @ 10 mls/hr Q24H IV Last administered on 02/01/17 13:00; Admin Dose 10 MLS/HR; Start 01/30/17 at 13:30 Lansoprazole (Prevacid) 30 mg DAILY@06 GTB Last administered on 02/02/17 05:31 ; Admin Dose 30 MG; Start 02/01/17 at 06:00 Lorazepam (Ativan) 0.5 mg Q12H PRN IV AGITATION/ANXIETY; Start 02/01/17 at 21: 00 ROGELIO FELIX MD Feb 02, 2017 09:07
[2017-02-02] MEDS: BUMETANIDE 25 MG in DEXTROSE 5% 150 ML IV SCH (12:47)
[2017-02-02] MEDS: ACETAMINOPHEN 650MG/20.3ML CUP GTB PRN (15:08)
[2017-02-02] MEDS: AMOXICILLIN/CLAV 500 MG TAB GTB SCH (22:57)
[2017-02-02] MEDS: LATANOPROST 0.005% 2.5 ML OPH BOTH EYES SCH (22:58)
[2017-02-03] VITALS (13 sets, daily range): BP systolic 110–123; BP diastolic 56–71; PULSE 85–110; RESP 17–22
[2017-02-03] MEDS: INSULIN ASPART [NOVOLOG] 3 ML PEN SC SCH ×4 (00:07→17:24)
[2017-02-03] MEDS: LEVALBUTEROL (NEB) 0.31 MG/3 ML AMP HHN SCH ×4 (02:40→20:00)
--- NOTE | 2017-02-03 05:14 | PN ---
DATE: 02/02/2017 SUBJECTIVE DATA: Patient without complaint. OBJECTIVE DATA: Vital signs: Temperature 98.1, pulse 88 and regular, respirations 17, blood pressure 100/53. Oxygen saturation 97 percent on room air. In general, a well-developed, well-nourished female in no acute distress, lying in bed. Chest: Decreased breath sounds bilateral bases. Heart: Regular rate and rhythm. Abdomen soft and nontender. Normoactive bowel sounds. Extremities: Trace to 1 plus lower extremity edema. LABORATORY AND DIAGNOSTIC DATA: Hemoglobin 9.2, hematocrit 30.9, white blood cell count 10.2, platelets 412. ASSESSMENT AND PLAN: 1. Diabetes, labile with elevated blood sugars. Will increase patient's Lantus to 40 units and continue sliding scale. 2. End-stage renal disease. Continues to remain stable. Will check labs in the morning and continue with current plan. 3. Coronary artery disease, status post STEMI, hypertension. Continue current medications. The patient remains stable. 4. Anemia. Remains stable. Continue to monitor. 5. Dysphagia, improved. Patient allowed to have nectar-thick liquids with spoon or cup per speech therapy. Will extend the patient's diet and continue with G-tube feeds. 6. Cellulitis, remains stable. Continue antibiotic treatment. 7. Discharge planning. Patient remains stable and will continue with plans for being discharged to the rehab center this week. Dictated By: Ayaan Simms MD /sari/dafne /Document#: [id number]
[2017-02-03] MEDS: LANSOPRAZOLE 30 MG CAP GTB SCH (06:24)
[2017-02-03 06:27] LABS: BASOPHIL # 0.1 10^3/ul (0.0-0.1); BASOPHILS % 0.7 % (0.0-2.0); EOSINOPHILS # 0.4 10^3/ul (0.0-0.5); EOSINOPHILS % 3.4 % (0.0-7.0); HEMATOCRIT 31.1 % (37.0-47.0); HEMOGLOBIN 9.2 g/dl (12.0-16.0); LYMPHOCYTES # 2.6 10^3/ul (0.8-2.9); LYMPHOCYTES % 24.3 % (15.0-51.0); MEAN CORPUSCULAR HEMOGLOBIN 27.2 pg (29.0-33.0); MEAN CORPUSCULAR HGB CONC 29.6 g/dl (32.0-37.0); MEAN PLATELET VOLUME 9.9 fl (7.4-10.4); MONOCYTE # 0.9 10^3/ul (0.3-0.9); MONOCYTES % 8.9 % (0.0-11.0); NEUTROPHIL # 6.5 10^3/ul (1.6-7.5); NEUTROPHILS % 61.7 % (39.0-77.0); PLATELET COUNT 419 10^3/UL (140-415); RED BLOOD COUNT 3.38 10^6/ul (4.20-5.40); RED CELL DISTRIBUTION WIDTH 17.8 % (11.5-14.5); WHITE BLOOD COUNT 10.5 10^3/ul (4.8-10.8)
[2017-02-03 07:10] LABS: ALBUMIN 2.5 g/dl (3.3-4.9); ALBUMIN/GLOBULIN RATIO 0.69; CREATININE 1.26 mg/dl (0.44-1.00); PHOSPHORUS 3.7 mg/dl (2.5-4.9); POTASSIUM 3.9 mmol/L (3.5-5.1); TOTAL PROTEIN 6.1 g/dl (6.1-8.1)
[2017-02-03 07:44] LABS: CALCIUM 8.3 mg/dl (8.4-10.2)
[2017-02-03] MEDS: IPRATROPIUM (NEB) 0.5 MG/2.5 ML AMP HHN SCH ×3 (08:00→20:00)
--- NOTE | 2017-02-03 08:10 | CONS ---
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 culture the wound site and continue with vanco/zosyn 01/18 - g-tube wound cx is NGTD 01/19 - g-tube wound cx has scant CoNS, doubt this is significant 01/20 - await decision regarding g-tube re-insertion 01/21 - pt is too lethargic for swallow eval to be done, re-attempt today 01/22 - pt to get new g-tube placed today 01/23 - unable to get g-tube yesterday, re-scheduled for today 01/24 - pt got G-tube and TF restarted no abd pain 01/27 - looks benign and non tender 01/28 - new g-tube in place 2) choleycystitis pt has had a drain in place for this until she is ready for surgery will cx the fluid that is present 01/18 - AMBROSE drain cx has growth but too young continue with vanco/zosyn CT showed distending GB and gallstones but no fluid around the GB 01/19 - AMBROSE drain is growing regular klebsiella and MRSA due to kleb +ESBL in urine will change zosyn to merrem, to continue with vanco contact isolation ordered 01/20 - continue with vanco/merrem at present 01/22 - WBC almost back to normal day 01/13 of vanco and day 4/7 of merrem likely will change to po augmentin/bactrim in 3 days if WBC is ok 01/23 - no new recs 01/24 - continue with vanco/merrem thru 01/25 then change to po augmentin/bactrim 01/27 - due to elevated wbc, continue with vanco/merrem and re-cx the GB fluid 01/28 - wbc is better, cx from GB fluid is NGTD d/c vanco/merrem and start augmentin/bactrim 01/30 - stable, slight increase in WBC GB fluid only grew kleb and yeast sensitive to the augmentin will check nasal to see if isolation can be d/c'd 01/31 - wbc is back down continue with augmentin/diflucan thru 02/03 02/03 - doing well, normal WBC d/c augmentin/diflucan today 3) recent STEMI and hx of CABG 4) renal failure pt has very good creatinine but is still receiving dialysis she also has distended bladder by CT will get u/a and urine cx, nurse to straight cath vanco/zosyn should cover 5) sacral ulcer unable to see nurse to get picture 01/18 - no sign for infection according to notes 6) UTI 01/18 - pus is coming out from guevara urine cx is growing GNR continue with zosyn as WBC is decreasing 01/19 - urine cx has kleb +ESBL change zosyn to merrem merrem to be given after HD on dialysis days 01/20 - no change 01/21 - pt's urine output is picking up 01/22 - day 10/11 of merrem 01/24 - day 12/11 of merrem repeat u/a and urine cx, if neg can consider stopping isolation 01/27 - re-culture urine, on merrem 01/28 - urine cx is growing yeast d/c merrem and start diflucan 7) R pleural effusion with possible consolidation 01/18 - no phlegm production on vanco/zosyn at present will order nasal for MRSA pt to possibly get R thorancentesis 01/19 - pleural fluid does not appear to be infected with low WBC count and less than 50% PMN's will check LDH in serum to verify if exudative or transudative 01/20 - LDH results consistent with exudative process, cx remain NGTD 01/21 - pleural fluid cx remains NGTD 01/22 - pleural cx was neg 8) 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 01/20 - no sign of cellulitis around these toes 01/22 - stable 02/03 - stable 9) leukocytosis clinically pt looks better re culture urine, blood, and GB fluid maintain on vanco/merrem CXR was not impressive for new lung infection and her breathing is stable 01/28 - wbc is improved blood cx and wound cx (AMBROSE fluid) are NGTD urine is growing yeast and will start diflucan d/c vanco/merrem and start augmentin/bactrim, likely just for a few days 01/31 - continue with augmentin thru 02/03, will d/c bactrim 02/03 - resolved, d/c augmentin today Problems: Consultation Date/Type/Reason Admit Date/Time Jan 16, 2017 at 22:45 Initial Consult Date 01/17/17 Type of Consultation: ID Referring Provider: SHAMA LOPEZ MD 24 HR Interval Summary Free Text/Dictation pt denies SOB, N, V, D pt off of HD now and good urine output Exam/Review of Systems Vital Signs Vitals Vital Signs Date Time Temp Pulse Resp B/P Pulse Ox O2 Delivery O2 Flow Rate FiO2 02/03/17 08:02 93 02/03/17 07:37 98.2 18 121/71 97 02/01/17 07:41 21 01/30/17 08:10 Nasal Cannula 2.0 Intake and Output 02/02/17 02/02/17 02/03/17 15:00 23:00 07:00 Intake Total 60 ml 1080 ml 1145 ml Output Total 720 ml 1460 ml Balance 60 ml 360 ml -315 ml Exam Constitutional: alert, oriented Head: normocephalic ENMT: mucosa pink and moist Respiratory: clear to auscultation Cardiovascular: regular rate and rhythm Gastrointestinal: non-tender, soft Results Result Diagram: 02/03/17 0548 02/03/17 0548 Results 24 hrs Laboratory Tests Test 02/02/17 08:56 02/02/17 12:04 02/02/17 17:49 02/02/17 23:53 Bedside Glucose 201 297 H 279 H 217 Test 02/03/17 05:48 02/03/17 06:24 White Blood Count 10.5 Red Blood Count 3.38 L Hemoglobin 9.2 L Hematocrit 31.1 L Mean Corpuscular Volume 92.0 Mean Corpuscular Hemoglobin 27.2 L Mean Corpuscular Hemoglobin Concent 29.6 L Red Cell Distribution Width 17.8 H Platelet Count 419 H Mean Platelet Volume 9.9 Neutrophils % 61.7 Lymphocytes % 24.3 Monocytes % 8.9 Eosinophils % 3.4 Basophils % 0.7 Nucleated Red Blood Cells % 0.0 Neutrophils # 6.5 Lymphocytes # 2.6 Monocytes # 0.9 Eosinophils # 0.4 Basophils # 0.1 Nucleated Red Blood Cells # 0.0 Sodium Level 140 Potassium Level 3.9 Chloride Level 94 L Carbon Dioxide Level 35 H Anion Gap 15 Blood Urea Nitrogen 59 H Creatinine 1.26 H Glucose Level 233 #H Calcium Level 8.3 L Phosphorus Level 3.7 Total Bilirubin 0.0 L Direct Bilirubin 0.00 Indirect Bilirubin 0.0 Aspartate Amino Transf (AST/SGOT) 28 Alanine Aminotransferase (ALT/SGPT) 30 Alkaline Phosphatase 221 H Total Protein 6.1 Albumin 2.5 L Globulin 3.60 H Albumin/Globulin Ratio 0.69 Bedside Glucose 248 H Medications Medications Current Medications Miscellaneous Information 1 ea NOTE XX ; Start 01/16/17 at 23:30 Glucose (Glutose) 15 gm Q15M PRN PO DECREASED GLUCOSE; Start 01/16/17 at 23:30 Glucose (Glutose) 22.5 gm Q15M PRN PO DECREASED GLUCOSE; Start 01/16/17 at 23: 30 Dextrose (D50w Syringe) 25 ml Q15M PRN IV DECREASED GLUCOSE Last administered on 01/22/17 20:54; Admin Dose 25 ML; Start 01/16/17 at 23:30 Dextrose (D50w Syringe) 50 ml Q15M PRN IV DECREASED GLUCOSE; Start 01/16/17 at 23:30 Glucagon (Glucagen) 1 mg Q15M PRN IM DECREASED GLUCOSE; Start 01/16/17 at 23:30 Glucose (Glutose) 15 gm Q15M PRN BUCCAL DECREASED GLUCOSE; Start 01/16/17 at 23 :30 Latanoprost (Xalatan) 1 drop HS BOTH EYES Last administered on 02/02/17 22:58 ; Admin Dose 1 DROP; Start 01/17/17 at 21:00 Epoetin Raj (Epogen (Esrd)) 10,000 units TuThSa@17 SC Last administered on 17:35; Admin Dose 10,000 UNITS; Start 01/18/17 at 17:00 Ondansetron HCl (Zofran Inj) 4 mg Q6H PRN IV NAUSEA AND/OR VOMITING; Start at 00:30 Collagenase (Santyl) 1 applic DAILY TOP Last administered on 02/02/17 08:57; Admin Dose 1 APPLIC; Start 01/18/17 at 16:00 Collagenase (Santyl) 1 applic PRN PRN TOP WOUND CARE; Start 01/18/17 at 15:00 Enoxaparin Sodium (Lovenox) 30 mg DAILY SC Last administered on 02/02/17 09:00 ; Admin Dose 30 MG; Start 01/20/17 at 09:00 Bisacodyl (Dulcolax Supp) 10 mg BID PRN [place] CONSTIPATION; Start 01/20/17 at 17: 00 Sodium Biphosphate/ Sodium Phosphate (Fleet Enema) 133 ml BID PRN [place] CONSTIPATION; Start 01/20/17 at 17:00 Morphine Sulfate (morphine) 2 mg Q4H PRN IV PAIN Last administered on 20:48; Admin Dose 2 MG; Start 01/22/17 at 16:00 Ferrous Sulfate (Feosol Liquid Cup) 300 mg DAILY GTB Last administered on 08:57; Admin Dose 300 MG; Start 01/24/17 at 16:30 Insulin Aspart (Novolog Insulin Pen) NOVOLOG *MODERATE* ALGORI... Q6 SC Last administered on 02/03/17 06:29; Admin Dose 4 UNIT; Start 01/25/17 at 00:00 Fluconazole (Diflucan) 100 mg DAILY NGT Last administered on 02/02/17 08:58; Admin Dose 100 MG; Start 01/28/17 at 10:00 Acetaminophen (Tylenol Liquid) 650 mg Q6H PRN GTB PAIN AND OR ELEVATED TEMP Last administered on 02/02/17 15:08; Admin Dose 650 MG; Start 01/28/17 at 13:30 Metoprolol Tartrate (Lopressor) 50 mg BID GTB Last administered on 02/02/17 22 :58; Admin Dose 50 MG; Start 01/28/17 at 21:00 Amoxicillin/ Clavulanate Potassium (Augmentin) 500 mg QHS GTB Last administered on 02/02/17 22:57; Admin Dose 500 MG; Start 01/29/17 at 21:00 Neomycin/ Polymyxin/ Bacitracin 1 applic 1 applic DAILY TOP Last administered on 02/02/17 08:57; Admin Dose 1 APPLIC; Start 01/31/17 at 09:00 Bumetanide/ Dextrose (Bumex/D5W) 250 ml @ 10 mls/hr Q24H IV Last administered on 02/02/17 12:47; Admin Dose 10 MLS/HR; Start 01/30/17 at 13:30 Lansoprazole (Prevacid) 30 mg DAILY@06 GTB Last administered on 02/03/17 06:24 ; Admin Dose 30 MG; Start 02/01/17 at 06:00 Lorazepam (Ativan) 0.5 mg Q12H PRN IV AGITATION/ANXIETY Last administered on t 12:47; Admin Dose 0.5 MG; Start 02/01/17 at 21:00 Insulin Glargine (Lantus) 40 unit DAILY@08 SC ; Start 02/03/17 at 08:00 TR GOODEN MD Feb 03, 2017 08:10
[2017-02-03] MEDS: FLUCONAZOLE 100 MG TAB NGT SCH (08:42)
[2017-02-03] MEDS: METOPROLOL 50 MG TAB GTB SCH ×2 (08:42→21:58)
[2017-02-03] MEDS: FERROUS SULFATE 60 MG/ML 5ML CUP GTB SCH (08:42)
[2017-02-03] MEDS: morphine 2 MG INJ IV PRN (08:43)
[2017-02-03] MEDS: INSULIN GLARGINE [LANtus] 3 ML PEN SC SCH (08:47)
[2017-02-03] MEDS: COLLAGENASE 30 GM TUBE TOP SCH (08:48)
[2017-02-03] MEDS: ENOXAPARIN 30 MG/0.3 ML SYG SC SCH (08:48)
[2017-02-03] MEDS: NEOMYC/POLYMYX/BACIT 30 GM OINT TOP SCH (08:48)
[2017-02-03] MEDS: BUMETANIDE 25 MG in DEXTROSE 5% 150 ML IV SCH (13:49)
--- NOTE | 2017-02-03 14:17 | DS ---
Date/Time of Note Date/Time of Note DATE: 02/03/17 TIME: 14:13 Discharge Summary Admission/Discharge Info Admit Date/Time Jan 16, 2017 at 22:45 Discharge Date/Time Hospital Course 02/03 pt stable thru the weekend. completed abx and antifungal. nasal swab still + for mrsa. start the bactroban. d/c back to snf. f/u with renal for regular dialysis. f/u in future with surg after stabilized for lab myron. -meds changed higher dose of metoprolol. higher lantus, on fe q day. 01/31 failed video swallow study. no acute change. transfused 1 u prbc yesterday. prep for d/c on fri is cont to be stable. 01/30 swallow study at bedside- coughing keeping npo to get video swallow study , hgb low but was it draw from picc. 01/[address] at bed side. pt awake and alert. hgb back to 7.7, pulse 100 with increased b-danyel. 01/28 hgb jump 7.7 to 13. yeast in urine -diflucan started wbc lower, pulse jumped to 120's 01/27 elevated wbc lower hgb, ct brain neg 01/[address], feedings started , belly pain improved, scheduled for dialysis 01/23 hgb by picc low again. will repeat draw by arm and if hgb<8.0 will transfuse. gtube rescheduled to today. 01/22 hgb redraw and is higher 8.9. dialysis done today, awaiting gtube reinsertion. 01/21 surg reports ok for gtube replace. gi reports will plan to place in am. cr increased 1.3 to 1.4. choking on apple sauce yesterday. 01/20 dialysis today, low sugar overall bad day today. 01/19gi- awaiting consult for replacement of g-tube. pt not appear to be able to take po nutrition appropriately. GI- g-tube dislodged causing cellulitis of the abd wall. 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 -id following and pt on vanco/zosyn---now changed due to klebsiella to vanco/ merrem . vanco merrem to be completed on 01/25, then will be on ngt augmentin/ bactrim. due to elevated wbc iv abx cont. 01/28 wbc improved abx changed to gtube aug/. -gi replace g-tube 01/23. feeding restarted 01/24. -swallow study taking place at bedside. coughing occurred with thin liq , hard to swallow the thicken but no cough. requesting video swallow test. failed. cont gtube feeding. renal- pt producing some urine. renal following and questioning if functionality has improved. fluid overloaded, being diuresed. dialysis restarted. epogen given. -uti now off merrem and starting diflucan pulm has a right lung infiltrate and mod effusion. pulm following tapped for 1 liter removed. abx changed. been stable dm- on sliding scale. no nutrition yet, sugar running low- lantis decreased. d5 running. since feeding has been restarted the accu checks to be expected to go up and will need to increase insulin appropriately. will increase lantus back to 30 u, accu checks elevated will increase to 40u cv- h/o arrest, stent [place], cards following. b-danyel restarted. stable cholecystostomy- surg following and drain changed and growing klebsiella. on abx. doing well. anemia- discussed with renal if transfusion is necessary. pt given epogen. renal to watch. low in FE. awaiting it g-tube to be reinserted or other source for feeding. hgb better 8.2. today cbc drawn from picc and the hgb 7.4. redraw from arm and 8.9. doing fine. lower today need to draw from arm. sudden jump inhgb 13- unclear if this is a true reading. appears to false due to hgb back to 7.7 from picc. will need draw tomorrow from arm. hgb 7.2 drawn from picc. hgb low. transfuse 1 u prbc. hgb 8.9 -changing ppi to prevacid due to gtube. tachycardia- improved on higher dose b-danyel via cards poor iv access. picc in place. isolation to be d/c if the nasal swab is neg for mrsa nasal swab sent today. discharge planning for mon back to snf. get f/u appt for dialysis and surg. Home Meds Active Scripts Insulin Glargine* (Lantus*) 100 Unit/Ml Soln, 36 UNIT SC QHS, #1 VIAL Prov:SHAW SRINIVASAN MD 01/17/17 Latanoprost (Latanoprost) 2.5 Ml Drops, 1 DROP BOTH EYES QHS, #1 BOTTLE Prov:SHAW SRINIVASAN MD 01/17/17 Dorzolamide/Timolol* (Dorzolamide/Timolol*) 10 Ml Drops, 1 DROP BOTH EYES BID, # 1 EA Prov:SHAW SRINIVASAN MD 01/17/17 Reported Medications Zinc Sulfate* (Zinc Sulfate*) 220 Mg Tablet, 220 MG GTB DAILY, TAB 01/16/17 Levalbuterol Hcl* (Levalbuterol Hcl*) 1.25 Mg/3 Ml Vial.neb, 1.25 MG INHALATION Q6H Y for WHEEZING AND SOB, VIAL 01/16/17 Ascorbic Acid* (Vitamin C*) 500 Mg Capsule.sa, 500 MG GTB DAILY, CAP 01/16/17 Acetaminophen* (Tylenol*) 500 Mg Tab, 1000 MG GTB Q4H Y for PAIN 4-6/10, TAB 01/16/17 Acetaminophen* (Tylenol*) 325 Mg Tablet, 650 MG GTB Q4H Y for MILD PAIN LEVEL 1- 3, TAB FOR FEVER 100 AND ABOVE AND PAIN MGMT PRIOR TO TX 01/16/17 Metoclopramide* (Reglan*) 5 Mg Tablet, 5 MG GTB AC MEALS, TAB Q6H 01/16/17 Clopidogrel Bisulfate (Clopidogrel) 75 Mg Tablet, 75 MG GTB DAILY, #30 TAB 01/16/17 Multivitamin with Minerals (Multivitamins with Minerals) 1 Each Tablet, 1 EACH GTB DAILY, TAB 01/16/17 Magnesium Hydroxide* (Milk Of Magnesia*) 400 Mg/5 Ml Oral.susp, 30 ML GTB as needed Y for prn, ML 01/16/17 Midodrine* (Midodrine*) 5 Mg Tablet, 5 MG GTB TID, TAB TAKE TUE,[place],SAT-3AM,11AM,3PM 01/16/17 Midodrine* (Midodrine*) 5 Mg Tablet, 5 MG GTB TID, TAB TAKE EVERY SUN,MON,WED,FRI-8AM,11AM,AND 4PM 01/16/17 Metoprolol Tartrate* (Lopressor*) 25 Mg Tablet, 25 MG GTB BID, #60 TAB HOLD IF SBP<110 OR HR<60 01/16/17 Escitalopram Oxalate* (Lexapro*) 10 Mg Tablet, 10 MG GTB DAILY, #30 TAB 01/16/17 Lactulose* (Lactulose*) 10 Gm/15 Ml Solution, 30 ML GTB BID, ML 01/16/17 Na Phos,M-B/Na Phos,Di-Ba (Fleet Enema Extra) 230 Ml Enema, 230 ML RC Q2D, ENEMA 01/16/17 Bisacodyl* (Bisacodyl*) 10 Mg Supp, 10 MG SC DAILY Y for PRN, SUPP 01/16/17 Gvcodt-Ccwsytof-Cfljhlb* (Thais GARCIA* 12,000) 12,000 L-38,000-60,000 Unit Capsule.dr, 3 CAP GTB WITH MEALS, CAP Q6H 01/16/17 Cranberry Extract (Cranberry) 425 Mg Capsule, 425 MG GTB DAILY, CAP 01/16/17 Docusate Sodium* (Docusate Sodium*) 100 Mg Capsule, 200 MG GTB QHS, #30 CAP 01/16/17 Calcium Carbonate (NATURAL CALCIUM) 500 Mg Tablet, 500 MG GTB TID, TAB CHEWABLE 01/16/17 Aspirin* (Aspirin* Chew) 81 Mg Tab.chew, 81 MG GTB DAILY, TAB.CHEW 01/16/17 Dextran/Hypromellose/Glycerin (Artificial Tears Drops) 15 Ml Drops, 2 DROP BOTH EYES QID, EA 01/16/17 Alprazolam* (Alprazolam*) 0.25 Mg Tablet, 0.25 MG GTB PRN Y for ANXIETY, TAB 01/16/17 Lactobacillus Acidophilus* (Lactinex*) 1 Tab Chew, 1 TAB GTB TID, TAB 01/16/17 Primary Care Provider Oscar Hernandes M.D. Pending Labs Laboratory Tests Test 02/02/17 17:49 02/02/17 23:53 02/03/17 05:48 02/03/17 06:24 Bedside Glucose 279mg/dL (70-220) 217mg/dL (70-220) 248mg/dL (70-220) White Blood Count 10.510^3/ul (4.8-10.8) Red Blood Count 3.3810^6/ul (4.20-5.40) Hemoglobin 9.2g/dl (12.0-16.0) Hematocrit 31.1% (37.0-47.0) Mean Corpuscular Volume 92.0fl (82.0-101.0) Mean Corpuscular Hemoglobin 27.2pg (29.0-33.0) Mean Corpuscular Hemoglobin Concent 29.6g/dl (32.0-37.0) Red Cell Distribution Width 17.8% (11.5-14.5) Platelet Count 07818^3/UL (140-415) Mean Platelet Volume 9.9fl (7.4-10.4) Neutrophils % 61.7% (39.0-77.0) Lymphocytes % 24.3% (15.0-51.0) Monocytes % 8.9% (0.0-11.0) Eosinophils % 3.4% (0.0-7.0) Basophils % 0.7% (0.0-2.0) Nucleated Red Blood Cells % 0.0/100WBC (0.0-0.0) Neutrophils # 6.510^3/ul (1.6-7.5) Lymphocytes # 2.610^3/ul (0.8-2.9) Monocytes # 0.910^3/ul (0.3-0.9) Eosinophils # 0.410^3/ul (0.0-0.5) Basophils # 0.110^3/ul (0.0-0.1) Nucleated Red Blood Cells # 0.010^3/ul (0.0-0.0) Sodium Level 140mmol/L (135-144) Potassium Level 3.9mmol/L (3.5-5.1) Chloride Level 94mmol/L (97-110) Carbon Dioxide Level 35mmol/L (21-31) Anion Gap 15 (8-16) Blood Urea Nitrogen 59mg/dl (7-20) Creatinine 1.26mg/dl (0.44-1.00) Glucose Level 233mg/dl (70-220) Calcium Level 8.3mg/dl (8.4-10.2) Phosphorus Level 3.7mg/dl (2.5-4.9) Total Bilirubin 0.0mg/dl (0.2-1.3) Direct Bilirubin 0.00mg/dl (0.00-0.20) Indirect Bilirubin 0.0mg/dl (0-1.1) Aspartate Amino Transf (AST/SGOT) 28IU/L (15-46) Alanine Aminotransferase (ALT/SGPT) 30IU/L (13-69) Alkaline Phosphatase 221IU/L (42-121) Total Protein 6.1g/dl (6.1-8.1) Albumin 2.5g/dl (3.3-4.9) Globulin 3.60g/dl (1.3-3.2) Albumin/Globulin Ratio 0.69 Test 02/03/17 12:18 Bedside Glucose 223mg/dL (70-220) SHAW SRINIVASAN MD Feb 03, 2017 14:17
--- NOTE | 2017-02-03 14:28 | PN ---
Date/Time of Note Date/Time of Note DATE: 02/03/17 TIME: 14:27 Assessment/Plan VTE Prophylaxis VTE Prophylaxis Intervention: LMWH Lines/Catheters IV Catheter Type (from Nrsg): PICC Line Urinary Cath still in place: Yes Assessment/Plan Chief Complaint/Hosp Course 02/03 pt stable thru the weekend. completed abx and antifungal. nasal swab still + for mrsa. start the bactroban. d/c back to snf. f/u with renal for regular dialysis. f/u in future with surg after stabilized for lab myron. -meds changed higher dose of metoprolol. higher lantus, on fe q day. 01/31 failed video swallow study. no acute change. transfused 1 u prbc yesterday. prep for d/c on fri is cont to be stable. 01/30 swallow study at bedside- coughing keeping npo to get video swallow study , hgb low but was it draw from picc. 01/[address] at bed side. pt awake and alert. hgb back to 7.7, pulse 100 with increased b-danyel. 01/28 hgb jump 7.7 to 13. yeast in urine -diflucan started wbc lower, pulse jumped to 120's 01/27 elevated wbc lower hgb, ct brain neg 01/[address], feedings started , belly pain improved, scheduled for dialysis 01/23 hgb by picc low again. will repeat draw by arm and if hgb<8.0 will transfuse. gtube rescheduled to today. 01/22 hgb redraw and is higher 8.9. dialysis done today, awaiting gtube reinsertion. 01/21 surg reports ok for gtube replace. gi reports will plan to place in am. cr increased 1.3 to 1.4. choking on apple sauce yesterday. 01/20 dialysis today, low sugar overall bad day today. 01/19gi- awaiting consult for replacement of g-tube. pt not appear to be able to take po nutrition appropriately. GI- g-tube dislodged causing cellulitis of the abd wall. 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 -id following and pt on vanco/zosyn---now changed due to klebsiella to vanco/ merrem . vanco merrem to be completed on 01/25, then will be on ngt augmentin/ bactrim. due to elevated wbc iv abx cont. 01/28 wbc improved abx changed to gtube aug/wilfredo. -gi replace g-tube 01/23. feeding restarted 01/24. -swallow study taking place at bedside. coughing occurred with thin liq , hard to swallow the thicken but no cough. requesting video swallow test. failed. cont gtube feeding. renal- pt producing some urine. renal following and questioning if functionality has improved. fluid overloaded, being diuresed. dialysis restarted. epogen given. -uti now off merrem and starting diflucan pulm has a right lung infiltrate and mod effusion. pulm following tapped for 1 liter removed. abx changed. been stable dm- on sliding scale. no nutrition yet, sugar running low- lantis decreased. d5 running. since feeding has been restarted the accu checks to be expected to go up and will need to increase insulin appropriately. will increase lantus back to 30 u, accu checks elevated will increase to 40u cv- h/o arrest, stent [place], cards following. b-danyel restarted. stable cholecystostomy- surg following and drain changed and growing klebsiella. on abx. doing well. anemia- discussed with renal if transfusion is necessary. pt given epogen. renal to watch. low in FE. awaiting it g-tube to be reinserted or other source for feeding. hgb better 8.2. today cbc drawn from picc and the hgb 7.4. redraw from arm and 8.9. doing fine. lower today need to draw from arm. sudden jump inhgb 13- unclear if this is a true reading. appears to false due to hgb back to 7.7 from picc. will need draw tomorrow from arm. hgb 7.2 drawn from picc. hgb low. transfuse 1 u prbc. hgb 8.9 -changing ppi to prevacid due to gtube. tachycardia- improved on higher dose b-danyel via cards poor iv access. picc in place. isolation to be d/c if the nasal swab is neg for mrsa nasal swab sent today. discharge planning for fri back to snf. get f/u appt for dialysis and surg. Problems: Subjective 24 Hr Interval Summary Free Text/Dictation cancel discharge due to unable to determine if pt requires dialysis. will need to watch. renal following. Exam/Review of Systems Vital Signs Vitals Vital Signs Date Time Temp Pulse Resp B/P Pulse Ox O2 Delivery O2 Flow Rate FiO2 02/03/17 12:08 85 02/03/17 11:16 98.9 18 123/66 96 02/01/17 07:41 21 01/30/17 08:10 Nasal Cannula 2.0 Intake and Output 02/02/17 02/02/17 02/03/17 15:00 23:00 07:00 Intake Total 60 ml 1080 ml 1145 ml Output Total 720 ml 1460 ml Balance 60 ml 360 ml -315 ml Results Result Diagram: 02/03/17 0548 02/03/17 0548 Results 24 hrs Laboratory Tests Test 02/02/17 17:49 02/02/17 23:53 02/03/17 05:48 02/03/17 06:24 Bedside Glucose 279 H 217 248 H White Blood Count 10.5 Red Blood Count 3.38 L Hemoglobin 9.2 L Hematocrit 31.1 L Mean Corpuscular Volume 92.0 Mean Corpuscular Hemoglobin 27.2 L Mean Corpuscular Hemoglobin Concent 29.6 L Red Cell Distribution Width 17.8 H Platelet Count 419 H Mean Platelet Volume 9.9 Neutrophils % 61.7 Lymphocytes % 24.3 Monocytes % 8.9 Eosinophils % 3.4 Basophils % 0.7 Nucleated Red Blood Cells % 0.0 Neutrophils # 6.5 Lymphocytes # 2.6 Monocytes # 0.9 Eosinophils # 0.4 Basophils # 0.1 Nucleated Red Blood Cells # 0.0 Sodium Level 140 Potassium Level 3.9 Chloride Level 94 L Carbon Dioxide Level 35 H Anion Gap 15 Blood Urea Nitrogen 59 H Creatinine 1.26 H Glucose Level 233 #H Calcium Level 8.3 L Phosphorus Level 3.7 Total Bilirubin 0.0 L Direct Bilirubin 0.00 Indirect Bilirubin 0.0 Aspartate Amino Transf (AST/SGOT) 28 Alanine Aminotransferase (ALT/SGPT) 30 Alkaline Phosphatase 221 H Total Protein 6.1 Albumin 2.5 L Globulin 3.60 H Albumin/Globulin Ratio 0.69 Test 02/03/17 12:18 Bedside Glucose 223 H Medications Medications Current Medications Miscellaneous Information 1 ea NOTE XX ; Start 01/16/17 at 23:30 Glucose (Glutose) 15 gm Q15M PRN PO DECREASED GLUCOSE; Start 01/16/17 at 23:30 Glucose (Glutose) 22.5 gm Q15M PRN PO DECREASED GLUCOSE; Start 01/16/17 at 23: 30 Dextrose (D50w Syringe) 25 ml Q15M PRN IV DECREASED GLUCOSE Last administered on 01/22/17 20:54; Admin Dose 25 ML; Start 01/16/17 at 23:30 Dextrose (D50w Syringe) 50 ml Q15M PRN IV DECREASED GLUCOSE; Start 01/16/17 at 23:30 Glucagon (Glucagen) 1 mg Q15M PRN IM DECREASED GLUCOSE; Start 01/16/17 at 23:30 Glucose (Glutose) 15 gm Q15M PRN BUCCAL DECREASED GLUCOSE; Start 01/16/17 at 23 :30 Latanoprost (Xalatan) 1 drop HS BOTH EYES Last administered on 02/02/17 22:58 ; Admin Dose 1 DROP; Start 01/17/17 at 21:00 Epoetin Raj (Epogen (Esrd)) 10,000 units TuThSa@17 SC Last administered on 17:35; Admin Dose 10,000 UNITS; Start 01/18/17 at 17:00 Ondansetron HCl (Zofran Inj) 4 mg Q6H PRN IV NAUSEA AND/OR VOMITING; Start at 00:30 Collagenase (Santyl) 1 applic DAILY TOP Last administered on 02/03/17 08:48; Admin Dose 1 APPLIC; Start 01/18/17 at 16:00 Collagenase (Santyl) 1 applic PRN PRN TOP WOUND CARE; Start 01/18/17 at 15:00 Enoxaparin Sodium (Lovenox) 30 mg DAILY SC Last administered on 02/03/17 08:48 ; Admin Dose 30 MG; Start 01/20/17 at 09:00 Bisacodyl (Dulcolax Supp) 10 mg BID PRN [place] CONSTIPATION; Start 01/20/17 at 17: 00 Sodium Biphosphate/ Sodium Phosphate (Fleet Enema) 133 ml BID PRN [place] CONSTIPATION; Start 01/20/17 at 17:00 Morphine Sulfate (morphine) 2 mg Q4H PRN IV PAIN Last administered on 08:43; Admin Dose 2 MG; Start 01/22/17 at 16:00 Ferrous Sulfate (Feosol Liquid Cup) 300 mg DAILY GTB Last administered on 08:42; Admin Dose 300 MG; Start 01/24/17 at 16:30 Insulin Aspart (Novolog Insulin Pen) NOVOLOG *MODERATE* ALGORI... Q6 SC Last administered on 02/03/17 12:24; Admin Dose 6 UNIT; Start 01/25/17 at 00:00 Acetaminophen (Tylenol Liquid) 650 mg Q6H PRN GTB PAIN AND OR ELEVATED TEMP Last administered on 02/02/17 15:08; Admin Dose 650 MG; Start 01/28/17 at 13:30 Metoprolol Tartrate (Lopressor) 50 mg BID GTB Last administered on 02/03/17 08 :42; Admin Dose 50 MG; Start 01/28/17 at 21:00 Amoxicillin/ Clavulanate Potassium (Augmentin) 500 mg QHS GTB Last administered on 02/02/17 22:57; Admin Dose 500 MG; Start 01/29/17 at 21:00; Stop 02/03/17 at 23:00 Neomycin/ Polymyxin/ Bacitracin 1 applic 1 applic DAILY TOP Last administered on 02/03/17 08:48; Admin Dose 1 APPLIC; Start 01/31/17 at 09:00 Bumetanide/ Dextrose (Bumex/D5W) 250 ml @ 10 mls/hr Q24H IV Last administered on 02/03/17 13:49; Admin Dose 10 MLS/HR; Start 01/30/17 at 13:30 Lansoprazole (Prevacid) 30 mg DAILY@06 GTB Last administered on 02/03/17 06:24 ; Admin Dose 30 MG; Start 02/01/17 at 06:00 Lorazepam (Ativan) 0.5 mg Q12H PRN IV AGITATION/ANXIETY Last administered on 12:47; Admin Dose 0.5 MG; Start 02/01/17 at 21:00 Insulin Glargine (Lantus) 40 unit DAILY@08 SC Last administered on 02/03/17 08 :47; Admin Dose 40 UNIT; Start 02/03/17 at 08:00 SHAW SRINIVASAN MD Feb 03, 2017 14:28
--- NOTE | 2017-02-03 14:39 | CONS ---
Date/Time of Note Date/Time of Note DATE: 02/03/17 TIME: 14:29 Assessment/Plan Assessment/Plan Chief Complaint/Hosp Course Impression: 1. Renal failure. Her serum creatinine has been low. Her serum creatinine today was 1.26 . BUN 59 . She is putting out more urine urine on the Bumex drip . I suspect her kidneys are recovering and I am hopeful this will continue and dialysis will only be needed intermittently if at all. Will continue to monitor her daily labs and urine output.She will need to continue in hospital to monitor urine output and renal function . 2. Multiple medical problems including insulin-dependent diabetes mellitus, atherosclerotic heart disease with acute NM and status post cardiac arrest with acute renal failure and anoxic encephalopathy, congestive heart failure, anemia of chronic disease, malnutrition, dysphagia requiring PEG placement , urinary tract infection , acute cholecystitis with drainage tube in place, peripheral vascular disease, history of her respiratory failure, history of acute cholecystitis with gallbladder drainage tube in place . She was admitted now because her gastric feeding tube dislodged and some of her feeding went into her abdominal cavity. She was thought to be septic at the time of admission. Plan: 1. next dialysis to be determined according to labs and urine output. 2. Continue Epogen 5. We will continue Bumex drip for now Problems: Consultation Date/Type/Reason Admit Date/Time Jan 16, 2017 at 22:45 Initial Consult Date 01/18/17 Type of Consultation: ID Referring Provider: SHAMA LOPEZ MD 24 HR Interval Summary Free Text/Dictation She is sleeping . She is easily aroused but lethargic . She is still on a Bumex drip and has good urine output . Constitutional: no complaints Exam/Review of Systems Vital Signs Vitals Vital Signs Date Time Temp Pulse Resp B/P Pulse Ox O2 Delivery O2 Flow Rate FiO2 02/03/17 12:08 85 02/03/17 11:16 98.9 18 123/66 96 02/01/17 07:41 21 01/30/17 08:10 Nasal Cannula 2.0 Intake and Output 02/02/17 02/02/17 02/03/17 15:00 23:00 07:00 Intake Total 60 ml 1080 ml 1145 ml Output Total 720 ml 1460 ml Balance 60 ml 360 ml -315 ml Exam Constitutional: frail, obese Respiratory: clear to auscultation, diminished breath sounds Cardiovascular: edema, regular rate and rhythm Gastrointestinal: soft Extremities: edema Neurological: lethargic Results Result Diagram: 02/03/17 0548 02/03/17 0548 Results 24 hrs Laboratory Tests Test 02/02/17 17:49 02/02/17 23:53 02/03/17 05:48 02/03/17 06:24 Bedside Glucose 279 H 217 248 H White Blood Count 10.5 Red Blood Count 3.38 L Hemoglobin 9.2 L Hematocrit 31.1 L Mean Corpuscular Volume 92.0 Mean Corpuscular Hemoglobin 27.2 L Mean Corpuscular Hemoglobin Concent 29.6 L Red Cell Distribution Width 17.8 H Platelet Count 419 H Mean Platelet Volume 9.9 Neutrophils % 61.7 Lymphocytes % 24.3 Monocytes % 8.9 Eosinophils % 3.4 Basophils % 0.7 Nucleated Red Blood Cells % 0.0 Neutrophils # 6.5 Lymphocytes # 2.6 Monocytes # 0.9 Eosinophils # 0.4 Basophils # 0.1 Nucleated Red Blood Cells # 0.0 Sodium Level 140 Potassium Level 3.9 Chloride Level 94 L Carbon Dioxide Level 35 H Anion Gap 15 Blood Urea Nitrogen 59 H Creatinine 1.26 H Glucose Level 233 #H Calcium Level 8.3 L Phosphorus Level 3.7 Total Bilirubin 0.0 L Direct Bilirubin 0.00 Indirect Bilirubin 0.0 Aspartate Amino Transf (AST/SGOT) 28 Alanine Aminotransferase (ALT/SGPT) 30 Alkaline Phosphatase 221 H Total Protein 6.1 Albumin 2.5 L Globulin 3.60 H Albumin/Globulin Ratio 0.69 Test 02/03/17 12:18 Bedside Glucose 223 H Medications Medications Current Medications Miscellaneous Information 1 ea NOTE XX ; Start 01/16/17 at 23:30 Glucose (Glutose) 15 gm Q15M PRN PO DECREASED GLUCOSE; Start 01/16/17 at 23:30 Glucose (Glutose) 22.5 gm Q15M PRN PO DECREASED GLUCOSE; Start 01/16/17 at 23: 30 Dextrose (D50w Syringe) 25 ml Q15M PRN IV DECREASED GLUCOSE Last administered on 01/22/17t 20:54; Admin Dose 25 ML; Start 01/16/17 at 23:30 Dextrose (D50w Syringe) 50 ml Q15M PRN IV DECREASED GLUCOSE; Start 01/16/17 at 23:30 Glucagon (Glucagen) 1 mg Q15M PRN IM DECREASED GLUCOSE; Start 01/16/17 at 23:30 Glucose (Glutose) 15 gm Q15M PRN BUCCAL DECREASED GLUCOSE; Start 01/16/17 at 23 :30 Latanoprost (Xalatan) 1 drop HS BOTH EYES Last administered on 02/02/17 22:58 ; Admin Dose 1 DROP; Start 01/17/17 at 21:00 Epoetin Raj (Epogen (Esrd)) 10,000 units TuThSa@17 SC Last administered on 17:35; Admin Dose 10,000 UNITS; Start 01/18/17 at 17:00 Ondansetron HCl (Zofran Inj) 4 mg Q6H PRN IV NAUSEA AND/OR VOMITING; Start at 00:30 Collagenase (Santyl) 1 applic DAILY TOP Last administered on 02/03/17 08:48; Admin Dose 1 APPLIC; Start 01/18/17 at 16:00 Collagenase (Santyl) 1 applic PRN PRN TOP WOUND CARE; Start 01/18/17 at 15:00 Enoxaparin Sodium (Lovenox) 30 mg DAILY SC Last administered on 02/03/17 08:48 ; Admin Dose 30 MG; Start 01/20/17 at 09:00 Bisacodyl (Dulcolax Supp) 10 mg BID PRN [place] CONSTIPATION; Start 01/20/17 at 17: 00 Sodium Biphosphate/ Sodium Phosphate (Fleet Enema) 133 ml BID PRN [place] CONSTIPATION; Start 01/20/17 at 17:00 Morphine Sulfate (morphine) 2 mg Q4H PRN IV PAIN Last administered on 08:43; Admin Dose 2 MG; Start 01/22/17 at 16:00 Ferrous Sulfate (Feosol Liquid Cup) 300 mg DAILY GTB Last administered on 08:42; Admin Dose 300 MG; Start 01/24/17 at 16:30 Insulin Aspart (Novolog Insulin Pen) NOVOLOG *MODERATE* ALGORI... Q6 SC Last administered on 02/03/17 12:24; Admin Dose 6 UNIT; Start 01/25/17 at 00:00 Acetaminophen (Tylenol Liquid) 650 mg Q6H PRN GTB PAIN AND OR ELEVATED TEMP Last administered on 02/02/17 15:08; Admin Dose 650 MG; Start 01/28/17 at 13:30 Metoprolol Tartrate (Lopressor) 50 mg BID GTB Last administered on 02/03/17 08 :42; Admin Dose 50 MG; Start 01/28/17 at 21:00 Amoxicillin/ Clavulanate Potassium (Augmentin) 500 mg QHS GTB Last administered on 02/02/17 22:57; Admin Dose 500 MG; Start 01/29/17 at 21:00; Stop 02/03/17 at 23:00 Neomycin/ Polymyxin/ Bacitracin 1 applic 1 applic DAILY TOP Last administered on 02/03/17 08:48; Admin Dose 1 APPLIC; Start 01/31/17 at 09:00 Bumetanide/ Dextrose (Bumex/D5W) 250 ml @ 10 mls/hr Q24H IV Last administered on 02/03/17 13:49; Admin Dose 10 MLS/HR; Start 01/30/17 at 13:30 Lansoprazole (Prevacid) 30 mg DAILY@06 GTB Last administered on 02/03/17 06:24 ; Admin Dose 30 MG; Start 02/01/17 at 06:00 Lorazepam (Ativan) 0.5 mg Q12H PRN IV AGITATION/ANXIETY Last administered on 12:47; Admin Dose 0.5 MG; Start 02/01/17 at 21:00 Insulin Glargine (Lantus) 40 unit DAILY@08 SC Last administered on 02/03/17 08 :47; Admin Dose 40 UNIT; Start 02/03/17 at 08:00 DAMIR MARTINEZ MD Feb 03, 2017 14:39
[2017-02-03] MEDS ORDERED: morphine 4 MG/ML VIAL IV PRN (15:00)
--- NOTE | 2017-02-03 16:50 | RADRPT ---
PROCEDURE: Chest 1 views. CLINICAL INDICATION: Shortness of breath. TECHNIQUE: AP views of the chest was obtained. COMPARISON: January 30, 2017 FINDINGS: The heart is large. Right-sided dialysis catheter has its tip in the expected location of the distal superior vena cava. Central pulmonary vascular congestion and interstitial prominence is seen in b oth lungs. Atelectasis versus mild infiltrates are seen in the bilateral lower lobes and may be com bined with small pleural effusions. Osseous structures are intact. IMPRESSION: Cardiomegaly . Central pulmonary vascular congestion and interstitial prominence in both lungs. Atelectasis versus mild infiltrates in the bilateral lower lungs, combined with small pleural effusi ons. RPTAT: AA .Ovidio Otoole MD, Date Time Electronically viewed and signed by .Ovidio Otoole MD, on 02/03/2017 16:50 .P/
[2017-02-03] MEDS: MUPIROCIN 2% 22 GM OINT TOP SCH (21:58)
[2017-02-03] MEDS: AMOXICILLIN/CLAV 500 MG TAB GTB SCH (21:58)
[2017-02-03] MEDS: LATANOPROST 0.005% 2.5 ML OPH BOTH EYES SCH (21:58)
[2017-02-04] VITALS (12 sets, daily range): BP systolic 109–130; BP diastolic 55–61; PULSE 95–105; RESP 16–22
[2017-02-04] MEDS: INSULIN ASPART [NOVOLOG] 3 ML PEN SC SCH ×4 (00:52→18:22)
[2017-02-04] MEDS: LEVALBUTEROL (NEB) 0.31 MG/3 ML AMP HHN SCH ×4 (02:35→19:31)
[2017-02-04] MEDS: IPRATROPIUM (NEB) 0.5 MG/2.5 ML AMP HHN SCH ×4 (02:36→19:31)
[2017-02-04] MEDS: LANSOPRAZOLE 30 MG CAP GTB SCH (04:52)
[2017-02-04 06:26] LABS: BASOPHIL # 0.1 10^3/ul (0.0-0.1); BASOPHILS % 0.6 % (0.0-2.0); EOSINOPHILS # 0.4 10^3/ul (0.0-0.5); HEMATOCRIT 30.6 % (37.0-47.0); HEMOGLOBIN 9.1 g/dl (12.0-16.0); LYMPHOCYTES # 2.9 10^3/ul (0.8-2.9); LYMPHOCYTES % 24.6 % (15.0-51.0); MEAN CORPUSCULAR HEMOGLOBIN 27.2 pg (29.0-33.0); MEAN CORPUSCULAR HGB CONC 29.7 g/dl (32.0-37.0); MEAN CORPUSCULAR VOLUME 91.3 fl (82.0-101.0); MEAN PLATELET VOLUME 9.9 fl (7.4-10.4); MONOCYTE # 1.1 10^3/ul (0.3-0.9); MONOCYTES % 9.4 % (0.0-11.0); NEUTROPHIL # 7.3 10^3/ul (1.6-7.5); NEUTROPHILS % 61.6 % (39.0-77.0); PLATELET COUNT 426 10^3/UL (140-415); RED BLOOD COUNT 3.35 10^6/ul (4.20-5.40); RED CELL DISTRIBUTION WIDTH 17.7 % (11.5-14.5); WHITE BLOOD COUNT 11.9 10^3/ul (4.8-10.8)
[2017-02-04 07:03] LABS: ALBUMIN 2.4 g/dl (3.3-4.9); ALBUMIN/GLOBULIN RATIO 0.66; CALCIUM 8.5 mg/dl (8.4-10.2); CREATININE 1.2 mg/dl (0.44-1.00)
[2017-02-04] MEDS: INSULIN GLARGINE [LANtus] 3 ML PEN SC SCH (08:41)
[2017-02-04] MEDS: METOPROLOL 50 MG TAB GTB SCH ×2 (10:09→22:03)
[2017-02-04] MEDS: FERROUS SULFATE 60 MG/ML 5ML CUP GTB SCH (10:09)
[2017-02-04] MEDS: COLLAGENASE 30 GM TUBE TOP SCH (10:10)
[2017-02-04] MEDS: NEOMYC/POLYMYX/BACIT 30 GM OINT TOP SCH (10:11)
[2017-02-04] MEDS: MUPIROCIN 2% 22 GM OINT TOP SCH ×2 (10:11→22:04)
[2017-02-04] MEDS: ENOXAPARIN 30 MG/0.3 ML SYG SC SCH (10:15)
[2017-02-04] MEDS ORDERED: traMADol 50 MG TAB PO PRN (10:30)
--- NOTE | 2017-02-04 12:06 | PQ ---
Date/Time of Note Date/Time of Note DATE: 02/04/17 TIME: 12:02 Physician Query Documentation Clarification Dear Dr. Newberry, A review of the medical record found a need for documentation clarification. possible aspiration pna. on broad spectrum abx and monitored by id---LOPEZ ATKINS MD Jan 19, 2017 14:14 01/30--PROCEDURE: Video-fluoroscopy swallowing study. ---. No aspiration during swallowing. CXR--Infiltrates throughout the right lung, combined with moderate pleural effusion. ABT --> Vancomycin, Piperacillin Please clarify the diagnosis being treated was. To facilitate accurate and complete coding, please jody ( x ) the suspected diagnosis that apply: ( ) Ruled in ( ) Ruled out (x ) Suspected ( ) Probable ( ) Others Please provide your response by clicking edit document, making your choice ( x ), click ok/save and finally click sign. You may also document your response on your progress notes. Thank you for your time. With appreciation, Caryl Sheets RN, BSN, CCS, CCDS Clinical Certified Legal Secretary Specialist Health Information Management, CDI and Coding Services [phone] Room # [address]~ [address] CARYL SHEETS Feb 04, 2017 12:06 ZANDRA NEWBERRY MD, [facility] Feb 06, 2017 09:48
[2017-02-04] MEDS: BUMETANIDE 25 MG in DEXTROSE 5% 150 ML IV SCH (13:30)
--- NOTE | 2017-02-04 13:41 | CONS ---
Date/Time of Note Date/Time of Note DATE: 02/04/17 TIME: 13:37 Assessment/Plan Assessment/Plan Chief Complaint/Hosp Course Impression: 1. Renal failure. Her serum creatinine has been low. Her serum creatinine today was 1.22 . BUN 69. She is putting out more urine urine on the Bumex drip . I suspect her kidneys are recovering and I am hopeful this will continue and dialysis will only be needed intermittently if at all. Will continue to monitor her daily labs and urine output.She will need to continue in hospital to monitor urine output and renal function . I will decrease tube feeding for now as her BUN is rising . 2. Multiple medical problems including insulin-dependent diabetes mellitus, atherosclerotic heart disease with acute NM and status post cardiac arrest with acute renal failure and anoxic encephalopathy, congestive heart failure, anemia of chronic disease, malnutrition, dysphagia requiring PEG placement , urinary tract infection , acute cholecystitis with drainage tube in place, peripheral vascular disease, history of her respiratory failure, history of acute cholecystitis with gallbladder drainage tube in place . She was admitted now because her gastric feeding tube dislodged and some of her feeding went into her abdominal cavity. She was thought to be septic at the time of admission. Plan: 1. next dialysis to be determined according to labs and urine output. 2. Continue Epogen 5. We will continue Bumex drip for now Problems: Consultation Date/Type/Reason Admit Date/Time Jan 16, 2017 at 22:45 Initial Consult Date 01/18/17 Type of Consultation: ID Referring Provider: SHAMA LOPEZ MD 24 HR Interval Summary Free Text/Dictation She is awake and alert . She denies pain . Constitutional: no complaints Exam/Review of Systems Vital Signs Vitals Vital Signs Date Time Temp Pulse Resp B/P Pulse Ox O2 Delivery O2 Flow Rate FiO2 02/04/17 12:24 105 02/04/17 11:00 98.5 16 109/56 96 02/04/17 08:31 21 Intake and Output 02/03/17 02/03/17 02/04/17 15:00 23:00 07:00 Intake Total 1015 ml 1035 ml Output Total 1140 ml 1035 ml Balance -125 ml 0 ml Exam She has flank edema . she has gangrenous toes on both feet . Constitutional: alert, frail, obese, oriented Respiratory: clear to auscultation, diminished breath sounds Cardiovascular: edema, regular rate and rhythm Results Result Diagram: 02/04/17 0555 02/04/17 0555 Results 24 hrs Laboratory Tests Test 02/03/17 17:09 02/04/17 00:47 02/04/17 04:53 02/04/17 05:55 Bedside Glucose 221 H 164 224 H White Blood Count 11.9 H Red Blood Count 3.35 L Hemoglobin 9.1 L Hematocrit 30.6 L Mean Corpuscular Volume 91.3 Mean Corpuscular Hemoglobin 27.2 L Mean Corpuscular Hemoglobin Concent 29.7 L Red Cell Distribution Width 17.7 H Platelet Count 426 H Mean Platelet Volume 9.9 Neutrophils % 61.6 Lymphocytes % 24.6 Monocytes % 9.4 Eosinophils % 3.0 Basophils % 0.6 Nucleated Red Blood Cells % 0.0 Neutrophils # 7.3 Lymphocytes # 2.9 Monocytes # 1.1 H Eosinophils # 0.4 Basophils # 0.1 Nucleated Red Blood Cells # 0.0 Sodium Level 138 Potassium Level 4.0 Chloride Level 89 L Carbon Dioxide Level 36 H Anion Gap 17 H Blood Urea Nitrogen 69 H Creatinine 1.20 H Glucose Level 210 Calcium Level 8.5 Total Bilirubin 0.0 L Direct Bilirubin 0.00 Indirect Bilirubin 0.0 Aspartate Amino Transf (AST/SGOT) 29 Alanine Aminotransferase (ALT/SGPT) 32 Alkaline Phosphatase 216 H Total Protein 6.0 L Albumin 2.4 L Globulin 3.60 H Albumin/Globulin Ratio 0.66 Test 02/04/17 08:39 02/04/17 12:23 Bedside Glucose 211 304 H Medications Medications Current Medications Miscellaneous Information 1 ea NOTE XX ; Start 01/16/17 at 23:30 Glucose (Glutose) 15 gm Q15M PRN PO DECREASED GLUCOSE; Start 01/16/17 at 23:30 Glucose (Glutose) 22.5 gm Q15M PRN PO DECREASED GLUCOSE; Start 01/16/17 at 23: 30 Dextrose (D50w Syringe) 25 ml Q15M PRN IV DECREASED GLUCOSE Last administered on 01/22/17t 20:54; Admin Dose 25 ML; Start 01/16/17 at 23:30 Dextrose (D50w Syringe) 50 ml Q15M PRN IV DECREASED GLUCOSE; Start 01/16/17 at 23:30 Glucagon (Glucagen) 1 mg Q15M PRN IM DECREASED GLUCOSE; Start 01/16/17 at 23:30 Glucose (Glutose) 15 gm Q15M PRN BUCCAL DECREASED GLUCOSE; Start 01/16/17 at 23 :30 Latanoprost (Xalatan) 1 drop HS BOTH EYES Last administered on 02/03/17 21:58 ; Admin Dose 1 DROP; Start 01/17/17 at 21:00 Epoetin Raj (Epogen (Esrd)) 10,000 units TuThSa@17 SC Last administered on 17:35; Admin Dose 10,000 UNITS; Start 01/18/17 at 17:00 Ondansetron HCl (Zofran Inj) 4 mg Q6H PRN IV NAUSEA AND/OR VOMITING; Start at 00:30 Collagenase (Santyl) 1 applic DAILY TOP Last administered on 02/04/17 10:10; Admin Dose 1 APPLIC; Start 01/18/17 at 16:00 Collagenase (Santyl) 1 applic PRN PRN TOP WOUND CARE; Start 01/18/17 at 15:00 Enoxaparin Sodium (Lovenox) 30 mg DAILY SC Last administered on 02/04/17 10:15 ; Admin Dose 30 MG; Start 01/20/17 at 09:00 Bisacodyl (Dulcolax Supp) 10 mg BID PRN [place] CONSTIPATION; Start 01/20/17 at 17: 00 Sodium Biphosphate/ Sodium Phosphate (Fleet Enema) 133 ml BID PRN [place] CONSTIPATION; Start 01/20/17 at 17:00 Ferrous Sulfate (Feosol Liquid Cup) 300 mg DAILY GTB Last administered on 10:09; Admin Dose 300 MG; Start 01/24/17 at 16:30 Insulin Aspart (Novolog Insulin Pen) NOVOLOG *MODERATE* ALGORI... Q6 SC Last administered on 02/04/17 12:26; Admin Dose 10 UNIT; Start 01/25/17 at 00:00 Acetaminophen (Tylenol Liquid) 650 mg Q6H PRN GTB PAIN AND OR ELEVATED TEMP Last administered on 02/02/17 15:08; Admin Dose 650 MG; Start 01/28/17 at 13:30 Metoprolol Tartrate (Lopressor) 50 mg BID GTB Last administered on 02/04/17 10: 09; Admin Dose 50 MG; Start 01/28/17 at 21:00 Neomycin/ Polymyxin/ Bacitracin 1 applic 1 applic DAILY TOP Last administered on 02/04/17 10:11; Admin Dose 1 APPLIC; Start 01/31/17 at 09:00 Bumetanide/ Dextrose (Bumex/D5W) 250 ml @ 10 mls/hr Q24H IV Last administered on 02/03/17 13:49; Admin Dose 10 MLS/HR; Start 01/30/17 at 13:30 Lansoprazole (Prevacid) 30 mg DAILY@06 GTB Last administered on 02/04/17 04:52 ; Admin Dose 30 MG; Start 02/01/17 at 06:00 Lorazepam (Ativan) 0.5 mg Q12H PRN IV AGITATION/ANXIETY Last administered on 12:47; Admin Dose 0.5 MG; Start 02/01/17 at 21:00 Insulin Glargine (Lantus) 40 unit DAILY@08 SC Last administered on 02/04/17 08: 41; Admin Dose 40 UNIT; Start 02/03/17 at 08:00 Mupirocin (Bactroban) 1 applic BID TOP Last administered on 02/04/17 10:11; Admin Dose 1 APPLIC; Start 02/03/17 at 21:00 Morphine Sulfate (morphine) 2 mg Q4H PRN IV PAIN; Start 02/03/17 at 15:00 DAMIR MARTINEZ MD Feb 04, 2017 13:41
[2017-02-04] MEDS: EPOETIN 10000 UNITS/1 ML INJ (ESRD) SC SCH (17:00)
[2017-02-04] MEDS: LATANOPROST 0.005% 2.5 ML OPH BOTH EYES SCH (22:03)
[2017-02-05] VITALS (12 sets, daily range): BP systolic 88–139; BP diastolic 46–78; PULSE 86–101; RESP 17–20
[2017-02-05] MEDS: INSULIN ASPART [NOVOLOG] 3 ML PEN SC SCH ×4 (00:40→18:50)
[2017-02-05] MEDS: LEVALBUTEROL (NEB) 0.31 MG/3 ML AMP HHN SCH ×4 (01:00→19:23)
[2017-02-05] MEDS: BUMETANIDE 25 MG in DEXTROSE 5% 150 ML IV SCH (01:44)
[2017-02-05] MEDS: LANSOPRAZOLE 30 MG CAP GTB SCH (05:01)
--- NOTE | 2017-02-05 06:34 | PN ---
DATE: 02/04/2017 SUBJECTIVE DATA: The patient is awake, alert, answers questions appropriately. OBJECTIVE DATA: VITAL SIGNS: Temperature 98.5, blood pressure 118/75, pulse of 105 and respiratory rate of 22. HEENT: Pupils reactive to light, eomi. CHEST: Minimal bibasilar crackles. CARDIAC: Distant heart sounds, regular rate and rhythm. ABDOMEN: Active bowel sounds, soft, nondistended, nontender. EXTREMITIES: No cyanosis, clubbing or edema. LABORATORY AND DIAGNOSTIC DATA: Notable for BUN of 72 and creatinine 1.5 ASSESSMENT AND PLAN: 1. Chronic renal failure appears to be improving. Agree with plans to hold dialysis since the patient's renal function appears to have improved. Will continue to monitor as the patient is being adjusted and placed back on diet and medications via her G- tube. 2. Pneumonitis and abdominal cellulitis. Appears symptomatically improved although mildly elevated WBC should be followed. Dictated By: Bette Guerrero MD /sari/lissett /Document#: [id number] MAYO
[2017-02-05 07:47] LABS: BASOPHIL # 0.1 10^3/ul (0.0-0.1); BASOPHILS % 0.6 % (0.0-2.0); EOSINOPHILS # 0.3 10^3/ul (0.0-0.5); EOSINOPHILS % 3.2 % (0.0-7.0); HEMATOCRIT 36.1 % (37.0-47.0); HEMOGLOBIN 10.6 g/dl (12.0-16.0); LYMPHOCYTES # 2.9 10^3/ul (0.8-2.9); LYMPHOCYTES % 27.9 % (15.0-51.0); MEAN CORPUSCULAR HEMOGLOBIN 27.1 pg (29.0-33.0); MEAN CORPUSCULAR HGB CONC 29.4 g/dl (32.0-37.0); MEAN CORPUSCULAR VOLUME 92.3 fl (82.0-101.0); MEAN PLATELET VOLUME 9.7 fl (7.4-10.4); MONOCYTE # 1.1 10^3/ul (0.3-0.9); MONOCYTES % 10.7 % (0.0-11.0); NEUTROPHIL # 5.8 10^3/ul (1.6-7.5); NEUTROPHILS % 56.5 % (39.0-77.0); PLATELET COUNT 412 10^3/UL (140-415); RED BLOOD COUNT 3.91 10^6/ul (4.20-5.40); WHITE BLOOD COUNT 10.2 10^3/ul (4.8-10.8)
--- NOTE | 2017-02-05 08:33 | CONS ---
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 culture the wound site and continue with vanco/zosyn 01/18 - g-tube wound cx is NGTD 01/19 - g-tube wound cx has scant CoNS, doubt this is significant 01/20 - await decision regarding g-tube re-insertion 01/21 - pt is too lethargic for swallow eval to be done, re-attempt today 01/22 - pt to get new g-tube placed today 01/23 - unable to get g-tube yesterday, re-scheduled for today 01/24 - pt got G-tube and TF restarted no abd pain 01/27 - looks benign and non tender 01/28 - new g-tube in place 2) choleycystitis pt has had a drain in place for this until she is ready for surgery will cx the fluid that is present 01/18 - AMBROSE drain cx has growth but too young continue with vanco/zosyn CT showed distending GB and gallstones but no fluid around the GB 01/19 - AMBROSE drain is growing regular klebsiella and MRSA due to kleb +ESBL in urine will change zosyn to merrem, to continue with vanco contact isolation ordered 01/20 - continue with vanco/merrem at present 01/22 - WBC almost back to normal day 01/13 of vanco and day 4/7 of merrem likely will change to po augmentin/bactrim in 3 days if WBC is ok 01/23 - no new recs 01/24 - continue with vanco/merrem thru 01/25 then change to po augmentin/bactrim 01/27 - due to elevated wbc, continue with vanco/merrem and re-cx the GB fluid 01/28 - wbc is better, cx from GB fluid is NGTD d/c vanco/merrem and start augmentin/bactrim 01/30 - stable, slight increase in WBC GB fluid only grew kleb and yeast sensitive to the augmentin will check nasal to see if isolation can be d/c'd 01/31 - wbc is back down continue with augmentin/diflucan thru 02/03 02/03 - doing well, normal WBC d/c augmentin/diflucan today 02/05 - remains afebrile and wbc is WNL continue off antibiotics at present I will sign off at present 3) recent STEMI and hx of CABG 4) renal failure pt has very good creatinine but is still receiving dialysis she also has distended bladder by CT will get u/a and urine cx, nurse to straight cath vanco/zosyn should cover 5) sacral ulcer unable to see nurse to get picture 01/18 - no sign for infection according to notes 6) UTI 01/18 - pus is coming out from guevara urine cx is growing GNR continue with zosyn as WBC is decreasing 01/19 - urine cx has kleb +ESBL change zosyn to merrem merrem to be given after HD on dialysis days 01/20 - no change 01/21 - pt's urine output is picking up 01/22 - day 10/11 of merrem 01/24 - day 12/11 of merrem repeat u/a and urine cx, if neg can consider stopping isolation 01/27 - re-culture urine, on merrem 01/28 - urine cx is growing yeast d/c merrem and start diflucan 7) R pleural effusion with possible consolidation 01/18 - no phlegm production on vanco/zosyn at present will order nasal for MRSA pt to possibly get R thorancentesis 01/19 - pleural fluid does not appear to be infected with low WBC count and less than 50% PMN's will check LDH in serum to verify if exudative or transudative 01/20 - LDH results consistent with exudative process, cx remain NGTD 01/21 - pleural fluid cx remains NGTD 01/22 - pleural cx was neg 8) 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 01/20 - no sign of cellulitis around these toes 01/22 - stable 02/03 - stable 02/05 - slight progression on R 1st toe but no sign of infection or redness 9) leukocytosis clinically pt looks better re culture urine, blood, and GB fluid maintain on vanco/merrem CXR was not impressive for new lung infection and her breathing is stable 01/28 - wbc is improved blood cx and wound cx (AMBROSE fluid) are NGTD urine is growing yeast and will start diflucan d/c vanco/merrem and start augmentin/bactrim, likely just for a few days 01/31 - continue with augmentin thru 02/03, will d/c bactrim 02/03 - resolved, d/c augmentin today 10) 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, some facilities do not isolate for colonization Problems: Consultation Date/Type/Reason Admit Date/Time Jan 16, 2017 at 22:45 Initial Consult Date 01/17/17 Type of Consultation: ID Referring Provider: SHAMA LOPEZ MD 24 HR Interval Summary Free Text/Dictation spoke to nurse no new issues no V, D, making urine and getting bumex Exam/Review of Systems Vital Signs Vitals Vital Signs Date Time Temp Pulse Resp B/P Pulse Ox O2 Delivery O2 Flow Rate FiO2 02/05/17 08:26 93 02/05/17 07:54 98.3 20 98/53 94 02/05/17 01:00 21 Intake and Output 02/04/17 02/04/17 02/05/17 15:00 23:00 07:00 Intake Total 1115 ml 110 ml Output Total 800 ml Balance 315 ml 110 ml Exam Constitutional: alert Head: normocephalic Eyes: nl sclera Respiratory: clear to auscultation Cardiovascular: regular rate and rhythm Gastrointestinal: non-tender, soft Extremities: other (R 1st necrosis appears worse but no sign of infection) Results Result Diagram: 02/05/17 0720 02/04/17 0555 Results 24 hrs Laboratory Tests Test 02/04/17 08:39 02/04/17 12:23 02/04/17 18:16 02/05/17 00:27 Bedside Glucose 211 304 H 209 153 Test 02/05/17 06:04 02/05/17 07:20 Bedside Glucose 190 White Blood Count 10.2 Red Blood Count 3.91 L Hemoglobin 10.6 L Hematocrit 36.1 L Mean Corpuscular Volume 92.3 Mean Corpuscular Hemoglobin 27.1 L Mean Corpuscular Hemoglobin Concent 29.4 L Red Cell Distribution Width 18.0 H Platelet Count 412 Mean Platelet Volume 9.7 Neutrophils % 56.5 Lymphocytes % 27.9 Monocytes % 10.7 Eosinophils % 3.2 Basophils % 0.6 Nucleated Red Blood Cells % 0.0 Neutrophils # 5.8 Lymphocytes # 2.9 Monocytes # 1.1 H Eosinophils # 0.3 Basophils # 0.1 Nucleated Red Blood Cells # 0.0 Medications Medications Current Medications Miscellaneous Information 1 ea NOTE XX ; Start 01/16/17 at 23:30 Glucose (Glutose) 15 gm Q15M PRN PO DECREASED GLUCOSE; Start 01/16/17 at 23:30 Glucose (Glutose) 22.5 gm Q15M PRN PO DECREASED GLUCOSE; Start 01/16/17 at 23: 30 Dextrose (D50w Syringe) 25 ml Q15M PRN IV DECREASED GLUCOSE Last administered on 01/22/17 20:54; Admin Dose 25 ML; Start 01/16/17 at 23:30 Dextrose (D50w Syringe) 50 ml Q15M PRN IV DECREASED GLUCOSE; Start 01/16/17 at 23:30 Glucagon (Glucagen) 1 mg Q15M PRN IM DECREASED GLUCOSE; Start 01/16/17 at 23:30 Glucose (Glutose) 15 gm Q15M PRN BUCCAL DECREASED GLUCOSE; Start 01/16/17 at 23 :30 Latanoprost (Xalatan) 1 drop HS BOTH EYES Last administered on 02/04/17 22:03; Admin Dose 1 DROP; Start 01/17/17 at 21:00 Epoetin Raj (Epogen (Esrd)) 10,000 units TuThSa@17 SC Last administered on 17:35; Admin Dose 10,000 UNITS; Start 01/18/17 at 17:00 Ondansetron HCl (Zofran Inj) 4 mg Q6H PRN IV NAUSEA AND/OR VOMITING; Start at 00:30 Collagenase (Santyl) 1 applic DAILY TOP Last administered on 02/04/17 10:10; Admin Dose 1 APPLIC; Start 01/18/17 at 16:00 Collagenase (Santyl) 1 applic PRN PRN TOP WOUND CARE; Start 01/18/17 at 15:00 Enoxaparin Sodium (Lovenox) 30 mg DAILY SC Last administered on 02/04/17 10:15 ; Admin Dose 30 MG; Start 01/20/17 at 09:00 Bisacodyl (Dulcolax Supp) 10 mg BID PRN [place] CONSTIPATION; Start 01/20/17 at 17: 00 Sodium Biphosphate/ Sodium Phosphate (Fleet Enema) 133 ml BID PRN [place] CONSTIPATION; Start 01/20/17 at 17:00 Ferrous Sulfate (Feosol Liquid Cup) 300 mg DAILY GTB Last administered on 10:09; Admin Dose 300 MG; Start 01/24/17 at 16:30 Insulin Aspart (Novolog Insulin Pen) NOVOLOG *MODERATE* ALGORI... Q6 SC Last administered on 02/05/17 06:40; Admin Dose 4 UNIT; Start 01/25/17 at 00:00 Acetaminophen (Tylenol Liquid) 650 mg Q6H PRN GTB PAIN AND OR ELEVATED TEMP Last administered on 02/02/17 15:08; Admin Dose 650 MG; Start 01/28/17 at 13:30 Metoprolol Tartrate (Lopressor) 50 mg BID GTB Last administered on 02/04/17 22: 03; Admin Dose 50 MG; Start 01/28/17 at 21:00 Neomycin/ Polymyxin/ Bacitracin 1 applic 1 applic DAILY TOP Last administered on 02/04/17 10:11; Admin Dose 1 APPLIC; Start 01/31/17 at 09:00 Bumetanide/ Dextrose (Bumex/D5W) 250 ml @ 10 mls/hr Q24H IV Last administered on 02/05/17 01:44; Admin Dose 10 MLS/HR; Start 01/30/17 at 13:30 Lansoprazole (Prevacid) 30 mg DAILY@06 GTB Last administered on 02/05/17 05:01 ; Admin Dose 30 MG; Start 02/01/17 at 06:00 Lorazepam (Ativan) 0.5 mg Q12H PRN IV AGITATION/ANXIETY Last administered on 12:47; Admin Dose 0.5 MG; Start 02/01/17 at 21:00 Insulin Glargine (Lantus) 40 unit DAILY@08 SC Last administered on 02/04/17 08: 41; Admin Dose 40 UNIT; Start 02/03/17 at 08:00 Mupirocin (Bactroban) 1 applic BID TOP Last administered on 02/04/17 22:04; Admin Dose 1 APPLIC; Start 02/03/17 at 21:00 Morphine Sulfate (morphine) 2 mg Q4H PRN IV PAIN; Start 02/03/17 at 15:00 TR GOODEN MD Feb 05, 2017 08:33
[2017-02-05] MEDS: IPRATROPIUM (NEB) 0.5 MG/2.5 ML AMP HHN SCH ×3 (08:53→19:23)
[2017-02-05] MEDS: METOPROLOL 50 MG TAB GTB SCH ×2 (09:00→22:28)
[2017-02-05] MEDS: FERROUS SULFATE 60 MG/ML 5ML CUP GTB SCH (09:09)
[2017-02-05] MEDS: ENOXAPARIN 30 MG/0.3 ML SYG SC SCH (09:10)
[2017-02-05] MEDS: COLLAGENASE 30 GM TUBE TOP SCH (09:11)
[2017-02-05] MEDS: NEOMYC/POLYMYX/BACIT 30 GM OINT TOP SCH (09:12)
[2017-02-05] MEDS: MUPIROCIN 2% 22 GM OINT TOP SCH ×2 (09:12→22:27)
[2017-02-05] MEDS: INSULIN GLARGINE [LANtus] 3 ML PEN SC SCH (11:19)
[2017-02-05 11:42] LABS: ALBUMIN 2.3 g/dl (3.3-4.9); ALBUMIN/GLOBULIN RATIO 0.65; CREATININE 1.17 mg/dl (0.44-1.00); MAGNESIUM 1.8 mg/dl (1.7-2.5); PHOSPHORUS 4.3 mg/dl (2.5-4.9); POTASSIUM 3.9 mmol/L (3.5-5.1); TOTAL PROTEIN 5.8 g/dl (6.1-8.1)
[2017-02-05] MEDS ORDERED: MAGNESIUM SULFATE 2 GM/50 ML 50 ML IVPB ONE (13:30)
--- NOTE | 2017-02-05 13:31 | CONS ---
Date/Time of Note Date/Time of Note DATE: 02/05/17 TIME: 13:26 Assessment/Plan Assessment/Plan Chief Complaint/Hosp Course Impression: 1. Renal failure. Her serum creatinine has continued to go down. Her serum creatinine is 1.17 with a BUN of 76. She is putting out more urine urine on the Bumex drip . I suspect her kidneys are recovering and I am hopeful this will continue and dialysis will only be needed intermittently if at all. Will continue to monitor her daily labs and urine output.She will need to continue in hospital to monitor urine output and renal function . Her BUN continues to rise. She has less flank edema than usual. I think she is getting volume depleted. I will discontinue the Bumex drip at this time. Her CO2 is elevated I will check a blood gas to assess her blood pH 2. Multiple medical problems including insulin-dependent diabetes mellitus, atherosclerotic heart disease with acute MD and status post cardiac arrest with acute renal failure and anoxic encephalopathy, congestive heart failure, anemia of chronic disease, malnutrition, dysphagia requiring PEG placement , urinary tract infection , acute cholecystitis with drainage tube in place, peripheral vascular disease, history of her respiratory failure, history of acute cholecystitis with gallbladder drainage tube in place . She was admitted now because her gastric feeding tube dislodged and some of her feeding went into her abdominal cavity. She was thought to be septic at the time of admission. Plan: 1. next dialysis to be determined according to labs and urine output. 2. Discontinue Epogen. 3. We will stop Bumex drip for now 4. I will order an arterial blood gas today and check CBC and CMP in the morning. Problems: Consultation Date/Type/Reason Admit Date/Time Jan 16, 2017 at 22:45 Initial Consult Date 01/18/17 Type of Consultation: ID Referring Provider: SHAMA LOPEZ MD 24 HR Interval Summary Free Text/Dictation She is awake. She is responsive. She denies pain. She remains very lethargic and weak. Constitutional: no complaints Exam/Review of Systems Vital Signs Vitals Vital Signs Date Time Temp Pulse Resp B/P Pulse Ox O2 Delivery O2 Flow Rate FiO2 02/05/17 12:03 101 02/05/17 11:31 98.9 20 103/50 93 02/05/17 08:56 21 Intake and Output 02/04/17 02/04/1717 15:00 23:00 07:00 Intake Total 1115 ml 110 ml Output Total 800 ml Balance 315 ml 110 ml Exam She has less flank edema than usual. 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 Constitutional: alert, frail, obese Respiratory: clear to auscultation, diminished breath sounds Cardiovascular: regular rate and rhythm Gastrointestinal: non-tender, soft Results Result Diagram: 02/05/17 0720 02/05/17 1030 Results 24 hrs Laboratory Tests Test 02/04/17 18:16 02/05/17 00:27 02/05/17 06:04 02/05/17 07:20 Bedside Glucose 209 153 190 White Blood Count 10.2 Red Blood Count 3.91 L Hemoglobin 10.6 L Hematocrit 36.1 L Mean Corpuscular Volume 92.3 Mean Corpuscular Hemoglobin 27.1 L Mean Corpuscular Hemoglobin Concent 29.4 L Red Cell Distribution Width 18.0 H Platelet Count 412 Mean Platelet Volume 9.7 Neutrophils % 56.5 Lymphocytes % 27.9 Monocytes % 10.7 Eosinophils % 3.2 Basophils % 0.6 Nucleated Red Blood Cells % 0.0 Neutrophils # 5.8 Lymphocytes # 2.9 Monocytes # 1.1 H Eosinophils # 0.3 Basophils # 0.1 Nucleated Red Blood Cells # 0.0 Test 02/05/17 08:41 02/05/17 10:30 02/05/17 11:57 Bedside Glucose 175 216 Sodium Level 138 Potassium Level 3.9 Chloride Level 88 L Carbon Dioxide Level 38 H Anion Gap 16 Blood Urea Nitrogen 76 H Creatinine 1.17 H Glucose Level 168 Calcium Level 8.0 L Phosphorus Level 4.3 Magnesium Level 1.8 Total Bilirubin 0.0 L Direct Bilirubin 0.00 Indirect Bilirubin 0.0 Aspartate Amino Transf (AST/SGOT) 30 Alanine Aminotransferase (ALT/SGPT) 26 Alkaline Phosphatase 196 H Total Protein 5.8 L Albumin 2.3 L Globulin 3.50 H Albumin/Globulin Ratio 0.65 Medications Medications Current Medications Miscellaneous Information 1 ea NOTE XX ; Start 01/16/17 at 23:30 Glucose (Glutose) 15 gm Q15M PRN PO DECREASED GLUCOSE; Start 01/16/17 at 23:30 Glucose (Glutose) 22.5 gm Q15M PRN PO DECREASED GLUCOSE; Start 01/16/17 at 23: 30 Dextrose (D50w Syringe) 25 ml Q15M PRN IV DECREASED GLUCOSE Last administered on 01/22/17 20:54; Admin Dose 25 ML; Start 01/16/17 at 23:30 Dextrose (D50w Syringe) 50 ml Q15M PRN IV DECREASED GLUCOSE; Start 01/16/17 at 23:30 Glucagon (Glucagen) 1 mg Q15M PRN IM DECREASED GLUCOSE; Start 01/16/17 at 23:30 Glucose (Glutose) 15 gm Q15M PRN BUCCAL DECREASED GLUCOSE; Start 01/16/17 at 23 :30 Latanoprost (Xalatan) 1 drop HS BOTH EYES Last administered on 02/04/17 22:03; Admin Dose 1 DROP; Start 01/17/17 at 21:00 Ondansetron HCl (Zofran Inj) 4 mg Q6H PRN IV NAUSEA AND/OR VOMITING; Start at 00:30 Collagenase (Santyl) 1 applic DAILY TOP Last administered on 02/05/17 09:11; Admin Dose 1 APPLIC; Start 01/18/17 at 16:00 Collagenase (Santyl) 1 applic PRN PRN TOP WOUND CARE; Start 01/18/17 at 15:00 Enoxaparin Sodium (Lovenox) 30 mg DAILY SC Last administered on 02/05/17 09:10 ; Admin Dose 30 MG; Start 01/20/17 at 09:00 Bisacodyl (Dulcolax Supp) 10 mg BID PRN [place] CONSTIPATION; Start 01/20/17 at 17: 00 Ferrous Sulfate (Feosol Liquid Cup) 300 mg DAILY GTB Last administered on 09:09; Admin Dose 300 MG; Start 01/24/17 at 16:30 Insulin Aspart (Novolog Insulin Pen) NOVOLOG *MODERATE* ALGORI... Q6 SC Last administered on 02/05/17 12:27; Admin Dose 4 UNIT; Start 01/25/17 at 00:00 Acetaminophen (Tylenol Liquid) 650 mg Q6H PRN GTB PAIN AND OR ELEVATED TEMP Last administered on 02/02/17 15:08; Admin Dose 650 MG; Start 01/28/17 at 13:30 Metoprolol Tartrate (Lopressor) 50 mg BID GTB Last administered on 02/04/17 22: 03; Admin Dose 50 MG; Start 01/28/17 at 21:00 Neomycin/ Polymyxin/ Bacitracin (Neosporin Topical Oint) 1 applic DAILY TOP Last administered on 02/05/17 09:12; Admin Dose 1 APPLIC; Start 01/31/17 at 09: 00 Lansoprazole (Prevacid) 30 mg DAILY@06 GTB Last administered on 02/05/17 05:01 ; Admin Dose 30 MG; Start 02/01/17 at 06:00 Lorazepam (Ativan) 0.5 mg Q12H PRN IV AGITATION/ANXIETY Last administered on 12:47; Admin Dose 0.5 MG; Start 02/01/17 at 21:00 Insulin Glargine (Lantus) 40 unit DAILY@08 SC Last administered on 02/05/17 11: 19; Admin Dose 40 UNIT; Start 02/03/17 at 08:00 Mupirocin (Bactroban) 1 applic BID TOP Last administered on 02/05/17 09:12; Admin Dose 1 APPLIC; Start 02/03/17 at 21:00 Morphine Sulfate (morphine) 2 mg Q4H PRN IV PAIN; Start 02/03/17 at 15:00 DAMIR MARTINEZ MD Feb 05, 2017 13:31
[2017-02-05 14:22] LABS: AADO2 Arterial 30.6 mmHg (7.0-24.0); Allen Test ACCEPTAB; Arterial COHb 0.4 % (0.0-3.0); Arterial Fraction of Oxyhgb 92.7 % (93.0-99.0); Arterial HCO3 35.7 mmol/L (22.0-26.0); Arterial MetHb 0.5 % (0.0-1.5); MODE ROOM AIR
[2017-02-05 14:32] LABS: BASOPHIL # 0.1 10^3/ul (0.0-0.1); BASOPHILS % 0.5 % (0.0-2.0); EOSINOPHILS # 0.3 10^3/ul (0.0-0.5); EOSINOPHILS % 2.8 % (0.0-7.0); HEMOGLOBIN 8.8 g/dl (12.0-16.0); LYMPHOCYTES # 3.2 10^3/ul (0.8-2.9); LYMPHOCYTES % 28.1 % (15.0-51.0); MEAN CORPUSCULAR HEMOGLOBIN 27.2 pg (29.0-33.0); MEAN CORPUSCULAR HGB CONC 29.3 g/dl (32.0-37.0); MEAN CORPUSCULAR VOLUME 92.6 fl (82.0-101.0); MEAN PLATELET VOLUME 9.6 fl (7.4-10.4); MONOCYTE # 1.3 10^3/ul (0.3-0.9); MONOCYTES % 11.6 % (0.0-11.0); NEUTROPHIL # 6.3 10^3/ul (1.6-7.5); NEUTROPHILS % 56.1 % (39.0-77.0); PLATELET COUNT 451 10^3/UL (140-415); RED BLOOD COUNT 3.24 10^6/ul (4.20-5.40); RED CELL DISTRIBUTION WIDTH 17.8 % (11.5-14.5); WHITE BLOOD COUNT 11.3 10^3/ul (4.8-10.8)
[2017-02-05 14:51] LABS: ALBUMIN 2.6 g/dl (3.3-4.9); ALBUMIN/GLOBULIN RATIO 0.7; CALCIUM 8.3 mg/dl (8.4-10.2); CREATININE 1.29 mg/dl (0.44-1.00); POTASSIUM 3.9 mmol/L (3.5-5.1); TOTAL PROTEIN 6.3 g/dl (6.1-8.1)
[2017-02-05] MEDS ORDERED: SOD CHLORIDE 0.9% 250 ML IV ONE (15:00)
[2017-02-05] MEDS ORDERED: MAGNESIUM SULFATE 2 GM/50 ML 50 ML IVPB SCH (18:00)
--- NOTE | 2017-02-05 18:28 | PN ---
Date/Time of Note Date/Time of Note DATE: 02/05/17 TIME: 18:25 Assessment/Plan VTE Prophylaxis VTE Prophylaxis Intervention: other Lines/Catheters IV Catheter Type (from Nrs): PICC Line Central line still needed: No Urinary Cath still in place: Yes Reason Cath still needed: other (indicate) Assessment/Plan Problems: (1) Acute renal failure Status: Acute Comment: improving , continue monitoring and medication adjustment per Renal (2) Cellulitis Status: Resolved Qualifiers: Site of cellulitis: trunk Site of cellulitis of trunk: abdominal wall Qualified Code: L03.311 - Cellulitis of abdominal wall (3) Gastrostomy site leak Status: Resolved Subjective 24 Hr Interval Summary Constitutional: no complaints Exam/Review of Systems Vital Signs Vitals Vital Signs Date Time Temp Pulse Resp B/P Pulse Ox O2 Delivery O2 Flow Rate FiO2 02/05/17 16:03 99 02/05/17 15:32 97.9 20 88/46 95 02/05/17 08:56 21 Intake and Output 02/04/17 02/04/17 02/05/17 15:00 23:00 07:00 Intake Total 1115 ml 110 ml Output Total 800 ml Balance 315 ml 110 ml Exam Constitutional: alert Head: atraumatic, normocephalic Eyes: EOMI Respiratory: clear to auscultation Cardiovascular: regular rate and rhythm Gastrointestinal: non-tender, soft Musculoskeletal: nl extremities to inspection Results Result Diagram: 02/05/17 1413 02/05/17 1413 Results 24 hrs Laboratory Tests Test 02/05/17 00:27 02/05/17 06:04 02/05/17 07:20 02/05/17 08:41 Bedside Glucose 153 190 175 White Blood Count 10.2 Red Blood Count 3.91 L Hemoglobin 10.6 L Hematocrit 36.1 L Mean Corpuscular Volume 92.3 Mean Corpuscular Hemoglobin 27.1 L Mean Corpuscular Hemoglobin Concent 29.4 L Red Cell Distribution Width 18.0 H Platelet Count 412 Mean Platelet Volume 9.7 Neutrophils % 56.5 Lymphocytes % 27.9 Monocytes % 10.7 Eosinophils % 3.2 Basophils % 0.6 Nucleated Red Blood Cells % 0.0 Neutrophils # 5.8 Lymphocytes # 2.9 Monocytes # 1.1 H Eosinophils # 0.3 Basophils # 0.1 Nucleated Red Blood Cells # 0.0 Test 02/05/17 10:30 02/05/17 11:57 02/05/17 13:24 02/05/17 14:13 Sodium Level 138 137 Potassium Level 3.9 3.9 Chloride Level 88 L 88 L Carbon Dioxide Level 38 H 39 H Anion Gap 16 14 Blood Urea Nitrogen 76 H 75 H Creatinine 1.17 H 1.29 H Glucose Level 168 191 Calcium Level 8.0 L 8.3 L Phosphorus Level 4.3 Magnesium Level 1.8 Total Bilirubin 0.0 L 0.0 L Direct Bilirubin 0.00 0.00 Indirect Bilirubin 0.0 0.0 Aspartate Amino Transf (AST/SGOT) 30 28 Alanine Aminotransferase (ALT/SGPT) 26 30 Alkaline Phosphatase 196 H 202 H Total Protein 5.8 L 6.3 Albumin 2.3 L 2.6 L Globulin 3.50 H 3.70 H Albumin/Globulin Ratio 0.65 0.70 Bedside Glucose 216 Blood Gas Specimen Source Blood arterial Arterial Blood Date Drawn 02/05/2017 2:15:47 PM Arterial Blood pH (Temp corrected) 7.539 H Arterial Blood pCO2 (Temp correct) 42.8 Arterial Blood pO2 (Temp corrected) 67.9 L Arterial Blood HCO3 35.7 H Arterial Blood Base Excess 12.0 H Arterial Blood Oxygen Saturation 93.5 L Raz Test ACCEPTAB Arterial Blood Gas Puncture Site Right Radial Arterial Blood Carboxyhemoglobin 0.4 Arterial Blood Methemoglobin 0.5 Blood Gas A-a O2 Differential 30.6 H Oxyhemoglobin Percent 92.7 L Total Hemoglobin 11.0 L Blood Gas Temperature 37.0 Blood Gas Modality ROOM AIR FiO2 21.0 Blood Gas Notified Whom TM Blood Gas Notified Time 02/05/2017 2:22:28 PM White Blood Count 11.3 H Red Blood Count 3.24 L Hemoglobin 8.8 L Hematocrit 30.0 L Mean Corpuscular Volume 92.6 Mean Corpuscular Hemoglobin 27.2 L Mean Corpuscular Hemoglobin Concent 29.3 L Red Cell Distribution Width 17.8 H Platelet Count 451 H Mean Platelet Volume 9.6 Neutrophils % 56.1 Lymphocytes % 28.1 Monocytes % 11.6 H Eosinophils % 2.8 Basophils % 0.5 Nucleated Red Blood Cells % 0.0 Neutrophils # 6.3 Lymphocytes # 3.2 H Monocytes # 1.3 H Eosinophils # 0.3 Basophils # 0.1 Nucleated Red Blood Cells # 0.0 Medications Medications Current Medications Miscellaneous Information 1 ea NOTE XX ; Start 01/16/17 at 23:30 Glucose (Glutose) 15 gm Q15M PRN PO DECREASED GLUCOSE; Start 01/16/17 at 23:30 Glucose (Glutose) 22.5 gm Q15M PRN PO DECREASED GLUCOSE; Start 01/16/17 at 23: 30 Dextrose (D50w Syringe) 25 ml Q15M PRN IV DECREASED GLUCOSE Last administered on 01/22/17 20:54; Admin Dose 25 ML; Start 01/16/17 at 23:30 Dextrose (D50w Syringe) 50 ml Q15M PRN IV DECREASED GLUCOSE; Start 01/16/17 at 23:30 Glucagon (Glucagen) 1 mg Q15M PRN IM DECREASED GLUCOSE; Start 01/16/17 at 23:30 Glucose (Glutose) 15 gm Q15M PRN BUCCAL DECREASED GLUCOSE; Start 01/16/17 at 23 :30 Latanoprost (Xalatan) 1 drop HS BOTH EYES Last administered on 02/04/17 22:03; Admin Dose 1 DROP; Start 01/17/17 at 21:00 Ondansetron HCl (Zofran Inj) 4 mg Q6H PRN IV NAUSEA AND/OR VOMITING; Start at 00:30 Collagenase (Santyl) 1 applic DAILY TOP Last administered on 02/05/17 09:11; Admin Dose 1 APPLIC; Start 01/18/17 at 16:00 Collagenase (Santyl) 1 applic PRN PRN TOP WOUND CARE; Start 01/18/17 at 15:00 Enoxaparin Sodium (Lovenox) 30 mg DAILY SC Last administered on 02/05/17 09:10 ; Admin Dose 30 MG; Start 01/20/17 at 09:00 Bisacodyl (Dulcolax Supp) 10 mg BID PRN [place] CONSTIPATION; Start 01/20/17 at 17: 00 Ferrous Sulfate (Feosol Liquid Cup) 300 mg DAILY GTB Last administered on 09:09; Admin Dose 300 MG; Start 01/24/17 at 16:30 Insulin Aspart (Novolog Insulin Pen) NOVOLOG *MODERATE* ALGORI... Q6 SC Last administered on 02/05/17 12:27; Admin Dose 4 UNIT; Start 01/25/17 at 00:00 Acetaminophen (Tylenol Liquid) 650 mg Q6H PRN GTB PAIN AND OR ELEVATED TEMP Last administered on 02/02/17 15:08; Admin Dose 650 MG; Start 01/28/17 at 13:30 Metoprolol Tartrate (Lopressor) 50 mg BID GTB Last administered on 02/04/17 22: 03; Admin Dose 50 MG; Start 01/28/17 at 21:00 Neomycin/ Polymyxin/ Bacitracin (Neosporin Topical Oint) 1 applic DAILY TOP Last administered on 02/05/17 09:12; Admin Dose 1 APPLIC; Start 01/31/17 at 09: 00 Lansoprazole (Prevacid) 30 mg DAILY@06 GTB Last administered on 02/05/17 05:01 ; Admin Dose 30 MG; Start 02/01/17 at 06:00 Lorazepam (Ativan) 0.5 mg Q12H PRN IV AGITATION/ANXIETY Last administered on 12:47; Admin Dose 0.5 MG; Start 02/01/17 at 21:00 Insulin Glargine (Lantus) 40 unit DAILY@08 SC Last administered on 02/05/17 11: 19; Admin Dose 40 UNIT; Start 02/03/17 at 08:00 Mupirocin (Bactroban) 1 applic BID TOP Last administered on 02/05/17 09:12; Admin Dose 1 APPLIC; Start 02/03/17 at 21:00 Morphine Sulfate 2 mg 2 mg Q4H PRN IV PAIN; Start 02/03/17 at 15:00 Magnesium Sulfate (Magnesium Sulfate 2 Gm/50 ml) 50 ml @ 25 mls/hr ONCE IVPB ; Start 02/05/17 at 18:00; Stop 02/05/17 at 19:59 SONALI WALKER MD Feb 05, 2017 18:28
[2017-02-05] MEDS: LATANOPROST 0.005% 2.5 ML OPH BOTH EYES SCH (22:27)
[2017-02-06] VITALS (11 sets, daily range): BP systolic 108–136; BP diastolic 55–68; PULSE 90–106; RESP 17–19
[2017-02-06] MEDS: INSULIN ASPART [NOVOLOG] 3 ML PEN SC SCH ×4 (00:02→18:38)
[2017-02-06] MEDS: LEVALBUTEROL (NEB) 0.31 MG/3 ML AMP HHN SCH ×4 (01:04→19:44)
[2017-02-06] MEDS: LANSOPRAZOLE 30 MG CAP GTB SCH (05:26)
[2017-02-06] MEDS: IPRATROPIUM (NEB) 0.5 MG/2.5 ML AMP HHN SCH ×3 (08:00→19:44)
[2017-02-06] MEDS: INSULIN GLARGINE [LANtus] 3 ML PEN SC SCH (08:39)
--- NOTE | 2017-02-06 09:33 | CONS ---
Date/Time of Note Date/Time of Note DATE: 02/06/17 TIME: 09:30 Assessment/Plan Assessment/Plan Chief Complaint/Hosp Course Impression: 1. Renal failure. Her serum creatinine has continued to go down. Her serum creatinine 1.29 with a BUN of 75. She is now off Bumex drip; however, her urine output is decreasing. I suspect her kidneys are recovering and I am hopeful this will continue and dialysis will only be needed intermittently if at all. Will continue to monitor her daily labs and urine output.She will need to continue in hospital to monitor urine output and renal function . Her BUN continues to rise. She has less flank edema than usual. I think she is getting volume depleted. I will discontinue the Bumex drip at this time. Her CO2 is elevated I will check a blood gas to assess her blood pH . H bolus of normal saline yesterday. I will recheck labs today. er PTH was elevated so I gave her one bolus of normal saline 250 cc. I will also check a portable chest x-ray this morning. 2. Multiple medical problems including insulin-dependent diabetes mellitus, atherosclerotic heart disease with acute AL and status post cardiac arrest with acute renal failure and anoxic encephalopathy, congestive heart failure, anemia of chronic disease, malnutrition, dysphagia requiring PEG placement , urinary tract infection , acute cholecystitis with drainage tube in place, peripheral vascular disease, history of her respiratory failure, history of acute cholecystitis with gallbladder drainage tube in place . She was admitted now because her gastric feeding tube dislodged and some of her feeding went into her abdominal cavity. She was thought to be septic at the time of admission. Plan: 1. next dialysis to be determined according to labs and urine output. 2. Discontinue Epogen. 3. We will stop Bumex drip for now 4. Stat labs and a chest x-ray are ordered for today. Problems: Consultation Date/Type/Reason Admit Date/Time Jan 16, 2017 at 22:45 Initial Consult Date 01/18/17 Type of Consultation: ID Referring Provider: SHAMA LOPEZ MD 24 HR Interval Summary Free Text/Dictation She is sleeping. She does arouse to verbal stimuli. She denies pain. Constitutional: no complaints Exam/Review of Systems Vital Signs Vitals Vital Signs Date Time Temp Pulse Resp B/P Pulse Ox O2 Delivery O2 Flow Rate FiO2 02/06/17 08:32 106 02/06/17 07:30 98.2 19 108/56 93 02/05/17 19:23 21 Intake and Output 02/05/17 02/05/17 02/06/17 15:00 23:00 07:00 Intake Total 695 ml 300 ml 975 ml Output Total 700 ml 160 ml Balance -5 ml 300 ml 815 ml Exam She has gangrenous toes on both feet. Constitutional: alert, frail, obese ENMT: nl external ears & nose Respiratory: clear to auscultation, diminished breath sounds Cardiovascular: regular rate and rhythm Gastrointestinal: non-tender, soft Results Result Diagram: 02/05/17 1413 02/05/17 1413 Results 24 hrs Laboratory Tests Test 02/05/17 10:30 02/05/17 11:57 02/05/17 13:24 02/05/17 14:13 Sodium Level 138 137 Potassium Level 3.9 3.9 Chloride Level 88 L 88 L Carbon Dioxide Level 38 H 39 H Anion Gap 16 14 Blood Urea Nitrogen 76 H 75 H Creatinine 1.17 H 1.29 H Glucose Level 168 191 Calcium Level 8.0 L 8.3 L Phosphorus Level 4.3 Magnesium Level 1.8 Total Bilirubin 0.0 L 0.0 L Direct Bilirubin 0.00 0.00 Indirect Bilirubin 0.0 0.0 Aspartate Amino Transf (AST/SGOT) 30 28 Alanine Aminotransferase (ALT/SGPT) 26 30 Alkaline Phosphatase 196 H 202 H Total Protein 5.8 L 6.3 Albumin 2.3 L 2.6 L Globulin 3.50 H 3.70 H Albumin/Globulin Ratio 0.65 0.70 Bedside Glucose 216 Blood Gas Specimen Source Blood arterial Arterial Blood Date Drawn 02/05/2017 2:15:47 PM Arterial Blood pH (Temp corrected) 7.539 H Arterial Blood pCO2 (Temp correct) 42.8 Arterial Blood pO2 (Temp corrected) 67.9 L Arterial Blood HCO3 35.7 H Arterial Blood Base Excess 12.0 H Arterial Blood Oxygen Saturation 93.5 L Raz Test ACCEPTAB Arterial Blood Gas Puncture Site Right Radial Arterial Blood Carboxyhemoglobin 0.4 Arterial Blood Methemoglobin 0.5 Blood Gas A-a O2 Differential 30.6 H Oxyhemoglobin Percent 92.7 L Total Hemoglobin 11.0 L Blood Gas Temperature 37.0 Blood Gas Modality ROOM AIR FiO2 21.0 Blood Gas Notified Whom TM Blood Gas Notified Time 02/05/2017 2:22:28 PM White Blood Count 11.3 H Red Blood Count 3.24 L Hemoglobin 8.8 L Hematocrit 30.0 L Mean Corpuscular Volume 92.6 Mean Corpuscular Hemoglobin 27.2 L Mean Corpuscular Hemoglobin Concent 29.3 L Red Cell Distribution Width 17.8 H Platelet Count 451 H Mean Platelet Volume 9.6 Neutrophils % 56.1 Lymphocytes % 28.1 Monocytes % 11.6 H Eosinophils % 2.8 Basophils % 0.5 Nucleated Red Blood Cells % 0.0 Neutrophils # 6.3 Lymphocytes # 3.2 H Monocytes # 1.3 H Eosinophils # 0.3 Basophils # 0.1 Nucleated Red Blood Cells # 0.0 Test 02/05/17 18:42 02/05/17 23:57 02/06/17 05:33 02/06/17 08:34 Bedside Glucose 195 149 189 188 Medications Medications Current Medications Miscellaneous Information 1 ea NOTE XX ; Start 01/16/17 at 23:30 Glucose (Glutose) 15 gm Q15M PRN PO DECREASED GLUCOSE; Start 01/16/17 at 23:30 Glucose (Glutose) 22.5 gm Q15M PRN PO DECREASED GLUCOSE; Start 01/16/17 at 23: 30 Dextrose (D50w Syringe) 25 ml Q15M PRN IV DECREASED GLUCOSE Last administered on 01/22/17 20:54; Admin Dose 25 ML; Start 01/16/17 at 23:30 Dextrose (D50w Syringe) 50 ml Q15M PRN IV DECREASED GLUCOSE; Start 01/16/17 at 23:30 Glucagon (Glucagen) 1 mg Q15M PRN IM DECREASED GLUCOSE; Start 01/16/17 at 23:30 Glucose (Glutose) 15 gm Q15M PRN BUCCAL DECREASED GLUCOSE; Start 01/16/17 at 23 :30 Latanoprost (Xalatan) 1 drop HS BOTH EYES Last administered on 02/05/17 22:27; Admin Dose 1 DROP; Start 01/17/17 at 21:00 Ondansetron HCl (Zofran Inj) 4 mg Q6H PRN IV NAUSEA AND/OR VOMITING; Start at 00:30 Collagenase (Santyl) 1 applic DAILY TOP Last administered on 02/05/17 09:11; Admin Dose 1 APPLIC; Start 01/18/17 at 16:00 Collagenase (Santyl) 1 applic PRN PRN TOP WOUND CARE; Start 01/18/17 at 15:00 Enoxaparin Sodium (Lovenox) 30 mg DAILY SC Last administered on 02/05/17 09:10 ; Admin Dose 30 MG; Start 01/20/17 at 09:00 Bisacodyl (Dulcolax Supp) 10 mg BID PRN [place] CONSTIPATION; Start 01/20/17 at 17: 00 Ferrous Sulfate (Feosol Liquid Cup) 300 mg DAILY GTB Last administered on 09:09; Admin Dose 300 MG; Start 01/24/17 at 16:30 Insulin Aspart (Novolog Insulin Pen) NOVOLOG *MODERATE* ALGORI... Q6 SC Last administered on 02/06/17 05:46; Admin Dose 4 UNIT; Start 01/25/17 at 00:00 Acetaminophen (Tylenol Liquid) 650 mg Q6H PRN GTB PAIN AND OR ELEVATED TEMP Last administered on 02/02/17 15:08; Admin Dose 650 MG; Start 01/28/17 at 13:30 Metoprolol Tartrate (Lopressor) 50 mg BID GTB Last administered on 02/04/17 22: 03; Admin Dose 50 MG; Start 01/28/17 at 21:00 Neomycin/ Polymyxin/ Bacitracin (Neosporin Topical Oint) 1 applic DAILY TOP Last administered on 02/05/17 09:12; Admin Dose 1 APPLIC; Start 01/31/17 at 09: 00 Lansoprazole (Prevacid) 30 mg DAILY@06 GTB Last administered on 02/06/17 05:26 ; Admin Dose 30 MG; Start 02/01/17 at 06:00 Lorazepam (Ativan) 0.5 mg Q12H PRN IV AGITATION/ANXIETY Last administered on 12:47; Admin Dose 0.5 MG; Start 02/01/17 at 21:00 Insulin Glargine (Lantus) 40 unit DAILY@08 SC Last administered on 02/06/17 08: 39; Admin Dose 40 UNIT; Start 02/03/17 at 08:00 Mupirocin (Bactroban) 1 applic BID TOP Last administered on 02/05/17 22:27; Admin Dose 1 APPLIC; Start 02/03/17 at 21:00 Morphine Sulfate (morphine) 2 mg Q4H PRN IV PAIN; Start 02/03/17 at 15:00 DAMIR MARTINEZ MD Feb 06, 2017 09:32
--- NOTE | 2017-02-06 10:07 | RADRPT ---
PROCEDURE: Chest 1 views. CLINICAL INDICATION: Shortness of breath. TECHNIQUE: AP views of the chest was obtained. COMPARISON: February 03, 2017 FINDINGS: The heart is large. Right-sided dialysis catheter has its tip in the expected location of the distal superior vena cava. The lungs are hypoinflated. Scattered atelectasis in the right lower lung is s table. Atelectasis versus minimal infiltrates in the left lower lobe are unchanged. Right-sided PI CC line is stable. Osseous structures are intact. IMPRESSION: Cardiomegaly . Stable atelectasis in the right lower lung. Stable atelectasis versus minimal infiltrates in the left lower lobe. RPTAT: AA .Ovidio Otoole MD, MD Date Time Electronically viewed and signed by .Ovidio Otoole MD, on 02/06/2017 10:06 .P/
[2017-02-06] MEDS: FERROUS SULFATE 60 MG/ML 5ML CUP GTB SCH (10:20)
[2017-02-06] MEDS: METOPROLOL 50 MG TAB GTB SCH ×2 (10:21→20:52)
[2017-02-06] MEDS: NEOMYC/POLYMYX/BACIT 30 GM OINT TOP SCH (10:21)
[2017-02-06] MEDS: MUPIROCIN 2% 22 GM OINT TOP SCH ×2 (10:21→20:55)
[2017-02-06] MEDS: COLLAGENASE 30 GM TUBE TOP SCH (10:22)
[2017-02-06] MEDS: ENOXAPARIN 30 MG/0.3 ML SYG SC SCH (10:22)
[2017-02-06 10:57] LABS: BASOPHILS % 0.3 % (0.0-2.0); EOSINOPHILS # 0.3 10^3/ul (0.0-0.5); EOSINOPHILS % 2.9 % (0.0-7.0); HEMATOCRIT 28.2 % (37.0-47.0); HEMOGLOBIN 8.6 g/dl (12.0-16.0); LYMPHOCYTES % 28.5 % (15.0-51.0); MEAN CORPUSCULAR HEMOGLOBIN 28.1 pg (29.0-33.0); MEAN CORPUSCULAR HGB CONC 30.5 g/dl (32.0-37.0); MEAN CORPUSCULAR VOLUME 92.2 fl (82.0-101.0); MEAN PLATELET VOLUME 9.7 fl (7.4-10.4); MONOCYTE # 1.3 10^3/ul (0.3-0.9); MONOCYTES % 12.7 % (0.0-11.0); NEUTROPHIL # 5.7 10^3/ul (1.6-7.5); NEUTROPHILS % 54.6 % (39.0-77.0); PLATELET COUNT 481 10^3/UL (140-415); RED BLOOD COUNT 3.06 10^6/ul (4.20-5.40); RED CELL DISTRIBUTION WIDTH 17.8 % (11.5-14.5); WHITE BLOOD COUNT 10.5 10^3/ul (4.8-10.8)
[2017-02-06 11:11] LABS: ALBUMIN 2.4 g/dl (3.3-4.9); ALBUMIN/GLOBULIN RATIO 0.66; CALCIUM 7.9 mg/dl (8.4-10.2); CREATININE 1.16 mg/dl (0.44-1.00); POTASSIUM 3.7 mmol/L (3.5-5.1)
--- NOTE | 2017-02-06 18:25 | PN ---
Date/Time of Note Date/Time of Note DATE: 02/06/17 TIME: 18:20 Assessment/Plan VTE Prophylaxis VTE Prophylaxis Intervention: other Lines/Catheters IV Catheter Type (from Nrs): PICC Line Central line still needed: Yes Urinary Cath still in place: Yes Reason Cath still needed: other (indicate) Assessment/Plan Problems: (1) Diabetes mellitus with hyperglycemia, with long-term current use of insulin Comment: Increase Lantus insulin to 45 units from 40 for elevated glucose since resuming G-tube feeding (2) Acute on chronic renal failure Status: Chronic Comment: continue renal monitoring and meds adjustment per Renal (3) Gastrostomy site leak Status: Resolved Subjective 24 Hr Interval Summary Constitutional: no complaints Exam/Review of Systems Vital Signs Vitals Vital Signs Date Time Temp Pulse Resp B/P Pulse Ox O2 Delivery O2 Flow Rate FiO2 02/06/17 16:31 92 02/06/17 15:32 98.4 19 113/56 95 02/06/17 14:18 21 Intake and Output 02/05/17 02/05/17 02/06/17 15:00 23:00 07:00 Intake Total 695 ml 1280 ml 975 ml Output Total 700 ml 860 ml 160 ml Balance -5 ml 420 ml 815 ml Exam Head: atraumatic, normocephalic Eyes: EOMI, nl conjunctiva Respiratory: clear to auscultation Cardiovascular: regular rate and rhythm Gastrointestinal: soft (G tube site clean) Musculoskeletal: nl extremities to inspection (scattered echymosis, toe gangrene unchanged.) Results Result Diagram: 02/06/17 1020 02/06/17 1020 Results 24 hrs Laboratory Tests Test 02/05/17 18:42 02/05/17 23:57 02/06/17 05:33 02/06/17 08:34 Bedside Glucose 195 149 189 188 Test 02/06/17 10:20 02/06/17 12:28 White Blood Count 10.5 Red Blood Count 3.06 L Hemoglobin 8.6 L Hematocrit 28.2 L Mean Corpuscular Volume 92.2 Mean Corpuscular Hemoglobin 28.1 L Mean Corpuscular Hemoglobin Concent 30.5 L Red Cell Distribution Width 17.8 H Platelet Count 481 H Mean Platelet Volume 9.7 Neutrophils % 54.6 Lymphocytes % 28.5 Monocytes % 12.7 H Eosinophils % 2.9 Basophils % 0.3 Nucleated Red Blood Cells % 0.0 Neutrophils # 5.7 Lymphocytes # 3.0 H Monocytes # 1.3 H Eosinophils # 0.3 Basophils # 0.0 Nucleated Red Blood Cells # 0.0 Sodium Level 139 Potassium Level 3.7 Chloride Level 90 L Carbon Dioxide Level 38 H Anion Gap 15 Blood Urea Nitrogen 78 H Creatinine 1.16 H Glucose Level 187 Calcium Level 7.9 L Total Bilirubin 0.0 L Direct Bilirubin 0.00 Indirect Bilirubin 0.0 Aspartate Amino Transf (AST/SGOT) 40 Alanine Aminotransferase (ALT/SGPT) 28 Alkaline Phosphatase 208 H Total Protein 6.0 L Albumin 2.4 L Globulin 3.60 H Albumin/Globulin Ratio 0.66 Bedside Glucose 237 H Medications Medications Current Medications Miscellaneous Information 1 ea NOTE XX ; Start 01/16/17 at 23:30 Glucose (Glutose) 15 gm Q15M PRN PO DECREASED GLUCOSE; Start 01/16/17 at 23:30 Glucose (Glutose) 22.5 gm Q15M PRN PO DECREASED GLUCOSE; Start 01/16/17 at 23: 30 Dextrose (D50w Syringe) 25 ml Q15M PRN IV DECREASED GLUCOSE Last administered on 01/22/17 20:54; Admin Dose 25 ML; Start 01/16/17 at 23:30 Dextrose (D50w Syringe) 50 ml Q15M PRN IV DECREASED GLUCOSE; Start 01/16/17 at 23:30 Glucagon (Glucagen) 1 mg Q15M PRN IM DECREASED GLUCOSE; Start 01/16/17 at 23:30 Glucose (Glutose) 15 gm Q15M PRN BUCCAL DECREASED GLUCOSE; Start 01/16/17 at 23 :30 Latanoprost (Xalatan) 1 drop HS BOTH EYES Last administered on 02/05/17 22:27; Admin Dose 1 DROP; Start 01/17/17 at 21:00 Ondansetron HCl (Zofran Inj) 4 mg Q6H PRN IV NAUSEA AND/OR VOMITING; Start at 00:30 Collagenase (Santyl) 1 applic DAILY TOP Last administered on 02/06/17 10:22; Admin Dose 1 APPLIC; Start 01/18/17 at 16:00 Collagenase (Santyl) 1 applic PRN PRN TOP WOUND CARE; Start 01/18/17 at 15:00 Enoxaparin Sodium (Lovenox) 30 mg DAILY SC Last administered on 02/06/17 10:22 ; Admin Dose 30 MG; Start 01/20/17 at 09:00 Bisacodyl (Dulcolax Supp) 10 mg BID PRN [place] CONSTIPATION; Start 01/20/17 at 17: 00 Ferrous Sulfate (Feosol Liquid Cup) 300 mg DAILY GTB Last administered on 10:20; Admin Dose 300 MG; Start 01/24/17 at 16:30 Insulin Aspart (Novolog Insulin Pen) NOVOLOG *MODERATE* ALGORI... Q6 SC Last administered on 02/06/17 12:34; Admin Dose 6 UNIT; Start 01/25/17 at 00:00 Acetaminophen (Tylenol Liquid) 650 mg Q6H PRN GTB PAIN AND OR ELEVATED TEMP Last administered on 02/02/17 15:08; Admin Dose 650 MG; Start 01/28/17 at 13:30 Metoprolol Tartrate (Lopressor) 50 mg BID GTB Last administered on 02/06/17 10: 21; Admin Dose 50 MG; Start 01/28/17 at 21:00 Neomycin/ Polymyxin/ Bacitracin (Neosporin Topical Oint) 1 applic DAILY TOP Last administered on 02/06/17 10:21; Admin Dose 1 APPLIC; Start 01/31/17 at 09: 00 Lansoprazole (Prevacid) 30 mg DAILY@06 GTB Last administered on 02/06/17 05:26 ; Admin Dose 30 MG; Start 02/01/17 at 06:00 Lorazepam (Ativan) 0.5 mg Q12H PRN IV AGITATION/ANXIETY Last administered on 12:47; Admin Dose 0.5 MG; Start 02/01/17 at 21:00 Insulin Glargine (Lantus) 40 unit DAILY@08 SC Last administered on 02/06/17 08: 39; Admin Dose 40 UNIT; Start 02/03/17 at 08:00 Mupirocin (Bactroban) 1 applic BID TOP Last administered on 02/06/17 10:21; Admin Dose 1 APPLIC; Start 02/03/17 at 21:00 Morphine Sulfate (morphine) 2 mg Q4H PRN IV PAIN; Start 02/03/17 at 15:00 SONALI WALKER MD Feb 06, 2017 18:25
[2017-02-06] MEDS: LATANOPROST 0.005% 2.5 ML OPH BOTH EYES SCH (20:52)
[2017-02-07] VITALS (13 sets, daily range): BP systolic 113–131; BP diastolic 55–60; PULSE 85–102; RESP 17–19
[2017-02-07] MEDS: INSULIN ASPART [NOVOLOG] 3 ML PEN SC SCH ×5 (00:37→21:00)
[2017-02-07] MEDS: LEVALBUTEROL (NEB) 0.31 MG/3 ML AMP HHN SCH ×4 (01:44→19:40)
[2017-02-07] MEDS: LANSOPRAZOLE 30 MG CAP GTB SCH (05:53)
[2017-02-07] MEDS: IPRATROPIUM (NEB) 0.5 MG/2.5 ML AMP HHN SCH ×3 (08:00→19:40)
[2017-02-07] MEDS: INSULIN GLARGINE [LANtus] 3 ML PEN SC SCH (08:24)
--- NOTE | 2017-02-07 08:38 | CONS ---
Date/Time of Note Date/Time of Note DATE: 02/07/17 TIME: 08:33 Assessment/Plan Assessment/Plan Chief Complaint/Hosp Course Impression: 1. Renal failure. Her serum creatinine has continued to go down. Her serum creatinine is 1.29 with a BUN of 75. She is now off Bumex drip; however, her urine output is decreasing. I suspect her kidneys are recovering and I am hopeful this will continue and dialysis will only be needed intermittently if at all. Will continue to monitor her daily labs and urine output.She will need to continue in hospital to monitor urine output and renal function . Her BUN continues to rise. She has less flank edema than usual. I think she is getting volume depleted. I will discontinue the Bumex drip at this time. Her CO2 is elevated I will check a blood gas to assess her blood pH . She was given a bolus of normal saline yesterday. I will recheck labs today. Which are pending. 2. Multiple medical problems including insulin-dependent diabetes mellitus, atherosclerotic heart disease with acute ID and status post cardiac arrest with acute renal failure and anoxic encephalopathy, congestive heart failure, anemia of chronic disease, malnutrition, dysphagia requiring PEG placement , urinary tract infection , acute cholecystitis with drainage tube in place, peripheral vascular disease, history of her respiratory failure, history of acute cholecystitis with gallbladder drainage tube in place . She was admitted now because her gastric feeding tube dislodged and some of her feeding went into her abdominal cavity. She was thought to be septic at the time of admission. Plan: 1. next dialysis to be determined according to labs and urine output. 2. Restart Epogen. 3. We will stop Bumex drip for now 4. Will check labs today when available. Problems: Consultation Date/Type/Reason Admit Date/Time Jan 16, 2017 at 22:45 Initial Consult Date 01/18/17 Type of Consultation: ID Referring Provider: SHAMA LOPEZ MD 24 HR Interval Summary Free Text/Dictation She says that she feels stressed today. She denies any pain. She is awake and responsive. Exam/Review of Systems Vital Signs Vitals Vital Signs Date Time Temp Pulse Resp B/P Pulse Ox O2 Delivery O2 Flow Rate FiO2 02/07/17 08:15 99 02/07/17 07:22 98.5 19 124/59 95 02/06/17 19:45 21 Intake and Output 8/3/17 8/3/17 8/4/17 15:00 23:00 07:00 Intake Total 1110 ml Output Total 1110 ml Balance 0 ml Exam Constitutional: alert, frail, obese, oriented Psych: anxiety Respiratory: clear to auscultation, diminished breath sounds Cardiovascular: edema, regular rate and rhythm Gastrointestinal: non-tender, soft Extremities: edema Results Result Diagram: 02/06/17 1020 02/06/17 1020 Results 24 hrs Laboratory Tests Test 02/06/17 08:34 02/06/17 10:20 02/06/17 12:28 02/06/17 18:26 Bedside Glucose 188 237 H 194 White Blood Count 10.5 Red Blood Count 3.06 L Hemoglobin 8.6 L Hematocrit 28.2 L Mean Corpuscular Volume 92.2 Mean Corpuscular Hemoglobin 28.1 L Mean Corpuscular Hemoglobin Concent 30.5 L Red Cell Distribution Width 17.8 H Platelet Count 481 H Mean Platelet Volume 9.7 Neutrophils % 54.6 Lymphocytes % 28.5 Monocytes % 12.7 H Eosinophils % 2.9 Basophils % 0.3 Nucleated Red Blood Cells % 0.0 Neutrophils # 5.7 Lymphocytes # 3.0 H Monocytes # 1.3 H Eosinophils # 0.3 Basophils # 0.0 Nucleated Red Blood Cells # 0.0 Sodium Level 139 Potassium Level 3.7 Chloride Level 90 L Carbon Dioxide Level 38 H Anion Gap 15 Blood Urea Nitrogen 78 H Creatinine 1.16 H Glucose Level 187 Calcium Level 7.9 L Total Bilirubin 0.0 L Direct Bilirubin 0.00 Indirect Bilirubin 0.0 Aspartate Amino Transf (AST/SGOT) 40 Alanine Aminotransferase (ALT/SGPT) 28 Alkaline Phosphatase 208 H Total Protein 6.0 L Albumin 2.4 L Globulin 3.60 H Albumin/Globulin Ratio 0.66 Test 02/07/17 00:30 02/07/17 05:47 02/07/17 08:23 Bedside Glucose 155 192 205 Medications Medications Current Medications Miscellaneous Information 1 ea NOTE XX ; Start 01/16/17 at 23:30 Glucose (Glutose) 15 gm Q15M PRN PO DECREASED GLUCOSE; Start 01/16/17 at 23:30 Glucose (Glutose) 22.5 gm Q15M PRN PO DECREASED GLUCOSE; Start 01/16/17 at 23: 30 Dextrose (D50w Syringe) 25 ml Q15M PRN IV DECREASED GLUCOSE Last administered on 01/22/17 20:54; Admin Dose 25 ML; Start 01/16/17 at 23:30 Dextrose (D50w Syringe) 50 ml Q15M PRN IV DECREASED GLUCOSE; Start 01/16/17 at 23:30 Glucagon (Glucagen) 1 mg Q15M PRN IM DECREASED GLUCOSE; Start 01/16/17 at 23:30 Glucose (Glutose) 15 gm Q15M PRN BUCCAL DECREASED GLUCOSE; Start 01/16/17 at 23 :30 Latanoprost (Xalatan) 1 drop HS BOTH EYES Last administered on 02/06/17 20:52; Admin Dose 1 DROP; Start 01/17/17 at 21:00 Ondansetron HCl (Zofran Inj) 4 mg Q6H PRN IV NAUSEA AND/OR VOMITING; Start at 00:30 Collagenase (Santyl) 1 applic DAILY TOP Last administered on 02/06/17 10:22; Admin Dose 1 APPLIC; Start 01/18/17 at 16:00 Collagenase (Santyl) 1 applic PRN PRN TOP WOUND CARE; Start 01/18/17 at 15:00 Enoxaparin Sodium (Lovenox) 30 mg DAILY SC Last administered on 02/06/17 10:22 ; Admin Dose 30 MG; Start 01/20/17 at 09:00 Bisacodyl (Dulcolax Supp) 10 mg BID PRN [place] CONSTIPATION; Start 01/20/17 at 17: 00 Ferrous Sulfate (Feosol Liquid Cup) 300 mg DAILY GTB Last administered on 10:20; Admin Dose 300 MG; Start 01/24/17 at 16:30 Insulin Aspart (Novolog Insulin Pen) NOVOLOG *MODERATE* ALGORI... Q6 SC Last administered on 02/07/17 06:00; Admin Dose 4 UNIT; Start 01/25/17 at 00:00 Acetaminophen (Tylenol Liquid) 650 mg Q6H PRN GTB PAIN AND OR ELEVATED TEMP Last administered on 02/02/17 15:08; Admin Dose 650 MG; Start 01/28/17 at 13:30 Metoprolol Tartrate (Lopressor) 50 mg BID GTB Last administered on 02/06/17 20: 52; Admin Dose 50 MG; Start 01/28/17 at 21:00 Neomycin/ Polymyxin/ Bacitracin (Neosporin Topical Oint) 1 applic DAILY TOP Last administered on 02/06/17 10:21; Admin Dose 1 APPLIC; Start 01/31/17 at 09: 00 Lansoprazole (Prevacid) 30 mg DAILY@06 GTB Last administered on 02/07/17 05:53 ; Admin Dose 30 MG; Start 02/01/17 at 06:00 Lorazepam (Ativan) 0.5 mg Q12H PRN IV AGITATION/ANXIETY Last administered on 12:47; Admin Dose 0.5 MG; Start 02/01/17 at 21:00 Mupirocin (Bactroban) 1 applic BID TOP Last administered on 02/06/17 20:55; Admin Dose 1 APPLIC; Start 02/03/17 at 21:00 Morphine Sulfate (morphine) 2 mg Q4H PRN IV PAIN; Start 02/03/17 at 15:00 Insulin Glargine (Lantus) 45 unit DAILY@08 SC ; Start 02/07/17 at 08:00 DAMIR MARTINEZ MD Feb 07, 2017 08:38
[2017-02-07 09:18] LABS: BASOPHILS % 0.2 % (0.0-2.0); EOSINOPHILS # 0.3 10^3/ul (0.0-0.5); EOSINOPHILS % 2.6 % (0.0-7.0); HEMOGLOBIN 8.5 g/dl (12.0-16.0); LYMPHOCYTES # 2.9 10^3/ul (0.8-2.9); LYMPHOCYTES % 27.3 % (15.0-51.0); MEAN CORPUSCULAR HEMOGLOBIN 28.3 pg (29.0-33.0); MEAN CORPUSCULAR HGB CONC 30.4 g/dl (32.0-37.0); MEAN CORPUSCULAR VOLUME 93.3 fl (82.0-101.0); MEAN PLATELET VOLUME 9.8 fl (7.4-10.4); MONOCYTE # 1.4 10^3/ul (0.3-0.9); MONOCYTES % 13.8 % (0.0-11.0); NEUTROPHIL # 5.8 10^3/ul (1.6-7.5); PLATELET COUNT 480 10^3/UL (140-415); RED CELL DISTRIBUTION WIDTH 17.9 % (11.5-14.5); WHITE BLOOD COUNT 10.5 10^3/ul (4.8-10.8)
[2017-02-07 09:34] LABS: ALBUMIN 2.5 g/dl (3.3-4.9); ALBUMIN/GLOBULIN RATIO 0.69; BILIRUBIN,INDIRECT 0.1 mg/dl (0-1.1); BILIRUBIN,TOTAL 0.1 mg/dl (0.2-1.3); CALCIUM 7.9 mg/dl (8.4-10.2); CREATININE 1.16 mg/dl (0.44-1.00); POTASSIUM 3.8 mmol/L (3.5-5.1); TOTAL PROTEIN 6.1 g/dl (6.1-8.1)
[2017-02-07] MEDS: FERROUS SULFATE 60 MG/ML 5ML CUP GTB SCH (09:37)
[2017-02-07] MEDS: METOPROLOL 50 MG TAB GTB SCH ×2 (09:38→22:03)
[2017-02-07] MEDS: NEOMYC/POLYMYX/BACIT 30 GM OINT TOP SCH (09:38)
[2017-02-07] MEDS: MUPIROCIN 2% 22 GM OINT TOP SCH ×2 (09:38→22:06)
[2017-02-07] MEDS: COLLAGENASE 30 GM TUBE TOP SCH (09:38)
[2017-02-07] MEDS: ENOXAPARIN 30 MG/0.3 ML SYG SC SCH (09:54)
[2017-02-07] MEDS: EPOETIN 10000 UNITS/1 ML INJ (ESRD) SC SCH (16:25)
[2017-02-07] MEDS: LATANOPROST 0.005% 2.5 ML OPH BOTH EYES SCH (22:02)
[2017-02-08] VITALS (11 sets, daily range): BP systolic 111–121; BP diastolic 54–61; PULSE 89–99; RESP 18–19
[2017-02-08] MEDS: INSULIN ASPART [NOVOLOG] 3 ML PEN SC SCH ×6 (00:58→21:09)
[2017-02-08] MEDS: LEVALBUTEROL (NEB) 0.31 MG/3 ML AMP HHN SCH ×4 (01:41→19:53)
--- NOTE | 2017-02-08 04:29 | PN ---
DATE: 02/07/2017 SUBJECTIVE DATA: Patient is alert and awake but very sleepy. OBJECTIVE DATA: RESPIRATORY: Clear to A and P. CARDIAC: Normal sinus rhythm. No murmur. No enlargement. ABDOMEN: Liver, kidneys, spleen are not palpable. Bowel sounds are normal. EXTREMITIES: No ankle edema. Patient has gangrene at the tip of the left 2nd toe. 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 She has some gangrene of the great toe on the right leg. VITAL SIGNS: Intake and output: 1110 cc input, 1110 cc output. LABORATORY AND DIAGNOSTIC DATA: White blood cell count 10,500, hemoglobin 8.5, hematocrit 28 percent, platelet count 480,000. Differential was normal. Sodium 139, potassium 3.8, chloride 91, carbon dioxide 37, BUN 74, creatinine 1.16, glucose 173, calcium 7.9 uncorrected. Alkaline phosphatase elevated at 208, albumin 2.5, globulin 3.6. Urine shows 85 red cells and 182 white cells per high-power field, many budding yeast in the urine. Vancomycin trough 17.5. wound culture: Klebsiella, jhon. Blood culture no growth after 5 days. Urine culture: Jhon albicans. Acid-fast stain, none seen. ASSESSMENT AND PLAN: 1. infection with cardiomegaly. 2. Stable atelectasis in the right lower lung. 3. Stable atelectasis versus minimal infiltrates in the left lower lobe. Dictated By: Julio Cesar Cunningham MD /sari/joo /Document#: [id number]
[2017-02-08] MEDS: LANSOPRAZOLE 30 MG CAP GTB SCH (05:12)
[2017-02-08] MEDS: IPRATROPIUM (NEB) 0.5 MG/2.5 ML AMP HHN SCH ×3 (07:57→19:53)
[2017-02-08] MEDS: MUPIROCIN 2% 22 GM OINT TOP SCH ×2 (08:54→21:07)
[2017-02-08] MEDS: NEOMYC/POLYMYX/BACIT 30 GM OINT TOP SCH (08:54)
[2017-02-08] MEDS: FERROUS SULFATE 60 MG/ML 5ML CUP GTB SCH (08:54)
[2017-02-08] MEDS: COLLAGENASE 30 GM TUBE TOP SCH (08:55)
[2017-02-08] MEDS: METOPROLOL 50 MG TAB GTB SCH ×2 (08:55→21:07)
[2017-02-08] MEDS: INSULIN GLARGINE [LANtus] 3 ML PEN SC SCH (08:58)
[2017-02-08] MEDS: ENOXAPARIN 30 MG/0.3 ML SYG SC SCH (09:06)
[2017-02-08] MEDS ORDERED: morphine 2 MG INJ IV PRN (12:00)
--- NOTE | 2017-02-08 13:04 | CONS ---
Date/Time of Note Date/Time of Note DATE: 02/08/17 TIME: 13:00 Assessment/Plan Assessment/Plan Chief Complaint/Hosp Course Impression: 1. Renal failure. Her renal function has improved.. Her urine output is adequate. She does have some flank edema. If her BUN continues to decrease then I will restart diuretics. She has not needed dialysis at least a week. Hopefully her kidneys will continue to improve and will not need further dialysis. 2. Multiple medical problems including insulin-dependent diabetes mellitus, atherosclerotic heart disease with acute LA and status post cardiac arrest with acute renal failure and anoxic encephalopathy, congestive heart failure, anemia of chronic disease, malnutrition, dysphagia requiring PEG placement , urinary tract infection , acute cholecystitis with drainage tube in place, peripheral vascular disease, history of her respiratory failure, history of acute cholecystitis with gallbladder drainage tube in place . She was admitted now because her gastric feeding tube dislodged and some of her feeding went into her abdominal cavity. She was thought to be septic at the time of admission. Plan: 1. next dialysis to be determined according to labs and urine output. 2. Restart Epogen. 3. Continue off Bumex drip 4. Will check labs today when available. Problems: Consultation Date/Type/Reason Admit Date/Time Jan 16, 2017 at 22:45 Initial Consult Date 01/18/17 Type of Consultation: ID Referring Provider: SHAMA LOPEZ MD 24 HR Interval Summary Free Text/Dictation She is sleeping but does rouse to verbal stimuli. She says that she is "all right". She denies any pain. Constitutional: no complaints Exam/Review of Systems Vital Signs Vitals Vital Signs Date Time Temp Pulse Resp B/P Pulse Ox O2 Delivery O2 Flow Rate FiO2 02/08/17 11:17 98.8 69 19 112/59 98 02/08/17 07:58 21 Intake and Output 02/07/17 02/07/17 02/08/17 15:00 23:00 07:00 Intake Total 910 ml 1200 ml Output Total 800 ml 800 ml Balance 110 ml 400 ml Exam She has gangrenous toes on both feet. Constitutional: alert, frail, obese Head: normocephalic ENMT: nl external ears & nose Respiratory: clear to auscultation, diminished breath sounds Cardiovascular: edema, regular rate and rhythm Gastrointestinal: soft Neurological: lethargic Results Result Diagram: 02/07/17 0827 02/07/17 0827 Results 24 hrs Laboratory Tests Test 02/07/17 16:26 02/07/17 20:09 02/08/17 00:57 02/08/17 04:35 Bedside Glucose 159 127 118 154 Test 02/08/17 08:47 Bedside Glucose 156 Medications Medications Current Medications Miscellaneous Information 1 ea NOTE XX ; Start 01/16/17 at 23:30 Glucose (Glutose) 15 gm Q15M PRN PO DECREASED GLUCOSE; Start 01/16/17 at 23:30 Glucose (Glutose) 22.5 gm Q15M PRN PO DECREASED GLUCOSE; Start 01/16/17 at 23: 30 Dextrose (D50w Syringe) 25 ml Q15M PRN IV DECREASED GLUCOSE Last administered on 01/22/17 20:54; Admin Dose 25 ML; Start 01/16/17 at 23:30 Dextrose (D50w Syringe) 50 ml Q15M PRN IV DECREASED GLUCOSE; Start 01/16/17 at 23:30 Glucagon (Glucagen) 1 mg Q15M PRN IM DECREASED GLUCOSE; Start 01/16/17 at 23:30 Glucose (Glutose) 15 gm Q15M PRN BUCCAL DECREASED GLUCOSE; Start 01/16/17 at 23 :30 Latanoprost (Xalatan) 1 drop HS BOTH EYES Last administered on 02/07/17 22:02; Admin Dose 1 DROP; Start 01/17/17 at 21:00 Ondansetron HCl (Zofran Inj) 4 mg Q6H PRN IV NAUSEA AND/OR VOMITING; Start at 00:30 Collagenase (Santyl) 1 applic DAILY TOP Last administered on 02/08/17 08:55; Admin Dose 1 APPLIC; Start 01/18/17 at 16:00 Collagenase (Santyl) 1 applic PRN PRN TOP WOUND CARE; Start 01/18/17 at 15:00 Enoxaparin Sodium (Lovenox) 30 mg DAILY SC Last administered on 02/08/17 09:06 ; Admin Dose 30 MG; Start 01/20/17 at 09:00 Bisacodyl (Dulcolax Supp) 10 mg BID PRN [place] CONSTIPATION; Start 01/20/17 at 17: 00 Ferrous Sulfate (Feosol Liquid Cup) 300 mg DAILY GTB Last administered on 08:54; Admin Dose 300 MG; Start 01/24/17 at 16:30 Acetaminophen (Tylenol Liquid) 650 mg Q6H PRN GTB PAIN AND OR ELEVATED TEMP Last administered on 02/02/17 15:08; Admin Dose 650 MG; Start 01/28/17 at 13:30 Metoprolol Tartrate (Lopressor) 50 mg BID GTB Last administered on 02/08/17 08: 55; Admin Dose 50 MG; Start 01/28/17 at 21:00 Neomycin/ Polymyxin/ Bacitracin (Neosporin Topical Oint) 1 applic DAILY TOP Last administered on 02/08/17 08:54; Admin Dose 1 APPLIC; Start 01/31/17 at 09: 00 Lansoprazole (Prevacid) 30 mg DAILY@06 GTB Last administered on 02/08/17 05:12 ; Admin Dose 30 MG; Start 02/01/17 at 06:00 Lorazepam (Ativan) 0.5 mg Q12H PRN IV AGITATION/ANXIETY Last administered on 12:47; Admin Dose 0.5 MG; Start 02/01/17 at 21:00 Mupirocin (Bactroban) 1 applic BID TOP Last administered on 02/08/17 08:54; Admin Dose 1 APPLIC; Start 02/03/17 at 21:00 Insulin Glargine (Lantus) 45 unit DAILY@08 SC Last administered on 02/08/17 08: 58; Admin Dose 45 UNIT; Start 02/07/17 at 08:00 Epoetin Raj (Epogen (Esrd)) 10,000 units MoWeFr@17 SC Last administered on 02/07 16:25; Admin Dose 10,000 UNITS; Start 02/07/17 at 17:00 Insulin Aspart (Novolog Insulin Pen) NOVOLOG *MODERATE* ALGORI... Q4 SC Last administered on 02/08/17 09:03; Admin Dose 2 UNIT; Start 02/07/17 at 13:00 Morphine Sulfate (morphine) 2 mg Q4H PRN IV PAIN; Start 02/08/17 at 12:00 DAMIR MARTINEZ MD Feb 08, 2017 13:04
[2017-02-08 15:32] LABS: ALBUMIN 2.6 g/dl (3.3-4.9); ALBUMIN/GLOBULIN RATIO 0.7; BILIRUBIN,INDIRECT 0.1 mg/dl (0-1.1); BILIRUBIN,TOTAL 0.1 mg/dl (0.2-1.3); CALCIUM 8.3 mg/dl (8.4-10.2); CREATININE 1.16 mg/dl (0.44-1.00); TOTAL PROTEIN 6.3 g/dl (6.1-8.1)
[2017-02-08] MEDS: LATANOPROST 0.005% 2.5 ML OPH BOTH EYES SCH (21:06)
[2017-02-09] VITALS (12 sets, daily range): BP systolic 112–124; BP diastolic 56–72; PULSE 89–95; RESP 17–20
[2017-02-09] MEDS: INSULIN ASPART [NOVOLOG] 3 ML PEN SC SCH ×6 (01:16→20:16)
[2017-02-09] MEDS: LEVALBUTEROL (NEB) 0.31 MG/3 ML AMP HHN SCH ×4 (02:00→19:40)
[2017-02-09] MEDS: LANSOPRAZOLE 30 MG CAP GTB SCH (05:08)
[2017-02-09 05:38] LABS: ABNORMAL IP MESSAGE 1; BASOPHIL # 0.1 10^3/ul (0.0-0.1); BASOPHILS % 0.4 % (0.0-2.0); EOSINOPHILS # 0.3 10^3/ul (0.0-0.5); EOSINOPHILS % 2.9 % (0.0-7.0); HEMATOCRIT 28.1 % (37.0-47.0); HEMOGLOBIN 8.3 g/dl (12.0-16.0); LYMPHOCYTES # 3.2 10^3/ul (0.8-2.9); LYMPHOCYTES % 27.2 % (15.0-51.0); MEAN CORPUSCULAR HEMOGLOBIN 27.6 pg (29.0-33.0); MEAN CORPUSCULAR HGB CONC 29.5 g/dl (32.0-37.0); MEAN CORPUSCULAR VOLUME 93.4 fl (82.0-101.0); MEAN PLATELET VOLUME 9.7 fl (7.4-10.4); MONOCYTE # 1.7 10^3/ul (0.3-0.9); MONOCYTES % 14.1 % (0.0-11.0); NEUTROPHIL # 6.3 10^3/ul (1.6-7.5); NEUTROPHILS % 53.7 % (39.0-77.0); PLATELET COUNT 493 10^3/UL (140-415); RED BLOOD COUNT 3.01 10^6/ul (4.20-5.40); RED CELL DISTRIBUTION WIDTH 17.8 % (11.5-14.5); WHITE BLOOD COUNT 11.8 10^3/ul (4.8-10.8)
[2017-02-09 05:53] LABS: POSITIVE DIFF @See below
[2017-02-09 05:59] LABS: ALBUMIN 2.5 g/dl (3.3-4.9); ALBUMIN/GLOBULIN RATIO 0.69; BILIRUBIN,INDIRECT 0.1 mg/dl (0-1.1); BILIRUBIN,TOTAL 0.1 mg/dl (0.2-1.3); CALCIUM 8.3 mg/dl (8.4-10.2); CREATININE 1.14 mg/dl (0.44-1.00); TOTAL PROTEIN 6.1 g/dl (6.1-8.1)
--- NOTE | 2017-02-09 06:41 | PN ---
DATE: 02/09/2017 OBJECTIVE DATA: The patient is awake, alert, but very sleepy. Chest clear to anterior and posterior. Heart: Normal sinus rhythm. Abdomen: There appears to be some fullness in the left lower quadrant of her abdomen. The right lower quadrant appears soft and normal. Bowel sounds are normal. No ankle edema. Gangrene of the tip of the left second toe and the right great toe. Small heel ulcers bilaterally. Feet are being lifted off by pillows so that the heels are not in contact with the bed sheets. The patient was seen by the manager project today. He felt that her BUN, creatinine continue to decrease and because of this she might not need a repeat renal dialysis. If her BUN continues to come down, it is planned to restart her diuretics. LABORATORY AND DIAGNOSTIC DATA: White blood cell count is 10,500, hemoglobin is 8.5 g percent, hematocrit is 28 percent, platelets are increased to 480,000. Differential is normal. Sodium is 137, potassium is 4.0, chloride is 87, carbon dioxide is 39, BUN is 29 and creatinine is 1.16. Glucose is 197, calcium is 8.3, albumin is 2.6, globulin is 3.7. To do a serum protein electrophoresis to rule out multiple myeloma, myelodysplastic syndrome. Corrected calcium is 8.62. Urine shows pyuria and microscopic hematuria, the patient has a catheter, this is probably the cause of it. CAT scan of the abdomen performed several weeks ago revealed marked subcutaneous and abdominal wall emphysematous changes. Dictated By: Julio Cesar Cunningham MD /sari/lissett /Document#: [id number]
[2017-02-09] MEDS: IPRATROPIUM (NEB) 0.5 MG/2.5 ML AMP HHN SCH ×3 (08:00→19:40)
[2017-02-09] MEDS: FERROUS SULFATE 60 MG/ML 5ML CUP GTB SCH (09:53)
[2017-02-09] MEDS: METOPROLOL 50 MG TAB GTB SCH ×2 (09:53→20:18)
[2017-02-09] MEDS: INSULIN GLARGINE [LANtus] 3 ML PEN SC SCH (09:55)
[2017-02-09] MEDS: MUPIROCIN 2% 22 GM OINT TOP SCH ×2 (09:58→20:19)
[2017-02-09] MEDS: NEOMYC/POLYMYX/BACIT 30 GM OINT TOP SCH (10:00)
[2017-02-09] MEDS: COLLAGENASE 30 GM TUBE TOP SCH (10:00)
[2017-02-09] MEDS: ENOXAPARIN 30 MG/0.3 ML SYG SC SCH (10:05)
--- NOTE | 2017-02-09 12:58 | CONS ---
Date/Time of Note Date/Time of Note DATE: 02/09/17 TIME: 12:44 Assessment/Plan Assessment/Plan Chief Complaint/Hosp Course Impression: 1. Renal failure. Her renal function has improved.. Her urine output is adequate. She does have less flank edema. Her BUN continues to rise and serum creatinine is normal . She looks volume depleted. I will start some intravenous fluids to see if the BUN decreases. Hopefully her kidneys will continue to improve and will not need further dialysis. 2. Multiple medical problems including insulin-dependent diabetes mellitus, atherosclerotic heart disease with acute [place] and status post cardiac arrest with acute renal failure and anoxic encephalopathy, congestive heart failure, anemia of chronic disease, malnutrition, dysphagia requiring PEG placement , urinary tract infection , acute cholecystitis with drainage tube in place, peripheral vascular disease, history of her respiratory failure, history of acute cholecystitis with gallbladder drainage tube in place . She was admitted now because her gastric feeding tube dislodged and some of her feeding went into her abdominal cavity. She was thought to be septic at the time of admission. Plan: 1. next dialysis to be determined according to labs and urine output. 2. Restart Epogen. 3. Continue off Bumex drip , add IV fluids. Abdominal ultrasound ordered 4. Will check labs in a.m. Problems: Consultation Date/Type/Reason Admit Date/Time Jan 16, 2017 at 22:45 Initial Consult Date 01/18/17 Type of Consultation: ID Referring Provider: SHAMA LOPEZ MD 24 HR Interval Summary Free Text/Dictation She is sleeping. She does arouse to verbal stimuli. She denies pain. Constitutional: no complaints Exam/Review of Systems Vital Signs Vitals Vital Signs Date Time Temp Pulse Resp B/P Pulse Ox O2 Delivery O2 Flow Rate FiO2 02/09/17 11:27 97.9 89 18 122/72 98 02/08/17 19:53 21 Intake and Output 02/08/17 02/08/17 02/09/17 15:00 23:00 07:00 Intake Total 1530 ml Output Total 750 ml Balance 780 ml Exam Constitutional: frail, obese ENMT: nl external ears & nose Respiratory: clear to auscultation, diminished breath sounds Cardiovascular: regular rate and rhythm Gastrointestinal: soft Musculoskeletal: nl extremities to inspection Results Result Diagram: 02/09/17 0508 02/09/17 0504 Results 24 hrs Laboratory Tests Test 02/08/17 13:13 02/08/17 14:32 02/08/17 17:24 02/08/17 20:57 Bedside Glucose 179 190 167 Sodium Level 137 Potassium Level 4.0 Chloride Level 87 L Carbon Dioxide Level 39 H Anion Gap 15 Blood Urea Nitrogen 79 H Creatinine 1.16 H Glucose Level 197 Calcium Level 8.3 L Total Bilirubin 0.1 L Direct Bilirubin 0.00 Indirect Bilirubin 0.1 Aspartate Amino Transf (AST/SGOT) 27 Alanine Aminotransferase (ALT/SGPT) 31 Alkaline Phosphatase 239 H Total Protein 6.3 Albumin 2.6 L Globulin 3.70 H Albumin/Globulin Ratio 0.70 Test 02/09/17 01:13 02/09/17 05:04 02/09/17 05:06 02/09/17 05:08 Bedside Glucose 235 H 205 Sodium Level 138 Potassium Level 4.0 Chloride Level 88 L Carbon Dioxide Level 39 H Anion Gap 15 Blood Urea Nitrogen 83 H Creatinine 1.14 H Glucose Level 193 Calcium Level 8.3 L Total Bilirubin 0.1 L Direct Bilirubin 0.00 Indirect Bilirubin 0.1 Aspartate Amino Transf (AST/SGOT) 46 Alanine Aminotransferase (ALT/SGPT) 29 Alkaline Phosphatase 230 H Total Protein 6.1 Albumin 2.5 L Globulin 3.60 H Albumin/Globulin Ratio 0.69 White Blood Count 11.8 H Red Blood Count 3.01 L Hemoglobin 8.3 L Hematocrit 28.1 L Mean Corpuscular Volume 93.4 Mean Corpuscular Hemoglobin 27.6 L Mean Corpuscular Hemoglobin Concent 29.5 L Red Cell Distribution Width 17.8 H Platelet Count 493 H Mean Platelet Volume 9.7 Neutrophils % 53.7 Lymphocytes % 27.2 Monocytes % 14.1 H Eosinophils % 2.9 Basophils % 0.4 Nucleated Red Blood Cells % 0.0 Neutrophils # 6.3 Lymphocytes # 3.2 H Monocytes # 1.7 H Eosinophils # 0.3 Basophils # 0.1 Nucleated Red Blood Cells # 0.0 Test 02/09/17 08:45 02/09/17 09:52 Bedside Glucose 233 H 240 H Medications Medications Current Medications Miscellaneous Information 1 ea NOTE XX ; Start 01/16/17 at 23:30 Glucose (Glutose) 15 gm Q15M PRN PO DECREASED GLUCOSE; Start 01/16/17 at 23:30 Glucose (Glutose) 22.5 gm Q15M PRN PO DECREASED GLUCOSE; Start 01/16/17 at 23: 30 Dextrose (D50w Syringe) 25 ml Q15M PRN IV DECREASED GLUCOSE Last administered on 01/22/17 20:54; Admin Dose 25 ML; Start 01/16/17 at 23:30 Dextrose (D50w Syringe) 50 ml Q15M PRN IV DECREASED GLUCOSE; Start 01/16/17 at 23:30 Glucagon (Glucagen) 1 mg Q15M PRN IM DECREASED GLUCOSE; Start 01/16/17 at 23:30 Glucose (Glutose) 15 gm Q15M PRN BUCCAL DECREASED GLUCOSE; Start 01/16/17 at 23 :30 Latanoprost (Xalatan) 1 drop HS BOTH EYES Last administered on 02/08/17 21:06; Admin Dose 1 DROP; Start 01/17/17 at 21:00 Ondansetron HCl (Zofran Inj) 4 mg Q6H PRN IV NAUSEA AND/OR VOMITING; Start at 00:30 Collagenase (Santyl) 1 applic DAILY TOP Last administered on 02/09/17 10:00; Admin Dose 1 APPLIC; Start 01/18/17 at 16:00 Collagenase (Santyl) 1 applic PRN PRN TOP WOUND CARE; Start 01/18/17 at 15:00 Enoxaparin Sodium (Lovenox) 30 mg DAILY SC Last administered on 02/09/17 10:05 ; Admin Dose 30 MG; Start 01/20/17 at 09:00 Bisacodyl (Dulcolax Supp) 10 mg BID PRN [place] CONSTIPATION; Start 01/20/17 at 17: 00 Ferrous Sulfate (Feosol Liquid Cup) 300 mg DAILY GTB Last administered on 09:53; Admin Dose 300 MG; Start 01/24/17 at 16:30 Acetaminophen (Tylenol Liquid) 650 mg Q6H PRN GTB PAIN AND OR ELEVATED TEMP Last administered on 02/02/17 15:08; Admin Dose 650 MG; Start 01/28/17 at 13:30 Metoprolol Tartrate (Lopressor) 50 mg BID GTB Last administered on 02/09/17 09: 53; Admin Dose 50 MG; Start 01/28/17 at 21:00 Neomycin/ Polymyxin/ Bacitracin (Neosporin Topical Oint) 1 applic DAILY TOP Last administered on 02/09/17 10:00; Admin Dose 1 APPLIC; Start 01/31/17 at 09: 00 Lansoprazole (Prevacid) 30 mg DAILY@06 GTB Last administered on 02/09/17 05:08 ; Admin Dose 30 MG; Start 02/01/17 at 06:00 Lorazepam (Ativan) 0.5 mg Q12H PRN IV AGITATION/ANXIETY Last administered on 12:47; Admin Dose 0.5 MG; Start 02/01/17 at 21:00 Mupirocin (Bactroban) 1 applic BID TOP Last administered on 02/09/17 09:58; Admin Dose 1 APPLIC; Start 02/03/17 at 21:00 Insulin Glargine (Lantus) 45 unit DAILY@08 SC Last administered on 02/09/17 09: 55; Admin Dose 45 UNIT; Start 02/07/17 at 08:00 Epoetin Raj (Epogen (Esrd)) 10,000 units MoWeFr@17 SC Last administered on 02/07 16:25; Admin Dose 10,000 UNITS; Start 02/07/17 at 17:00 Insulin Aspart (Novolog Insulin Pen) NOVOLOG *MODERATE* ALGORI... Q4 SC Last administered on 02/09/17 09:57; Admin Dose 6 UNIT; Start 02/07/17 at 13:00 Morphine Sulfate (morphine) 2 mg Q4H PRN IV PAIN; Start 02/08/17 at 12:00 DAMIR MARTINEZ MD Feb 09, 2017 12:54
[2017-02-09] MEDS ORDERED: SOD CHLORIDE 0.9% 250 ML IV ONE (13:00)
[2017-02-09] MEDS: SOD CHLORIDE 0.9% 1,000 ML IV SCH ×2 (13:20→22:07)
--- NOTE | 2017-02-09 14:22 | RADRPT ---
PROCEDURE: Complete abdominal ultrasound. CLINICAL INDICATION: Abdominal pain TECHNIQUE: Pereira scale and color doppler ultrasound images of the complete abdomen. COMPARISON: CT abdomen pelvis 01/16/2017 FINDINGS: Pancreas: Visualized portions appear of normal echogenicity, no focal lesions. Liver: Morphology: Mildly enlarged measuring 17.5 cm. No evidence of contour nodularity. Echogenicity: Normal. Focal lesions: None. Main portal vein: Patent with hepatopetal flow. Biliary System: Mild gallbladder wall thickening measuring approximately 3.5 cm. Percutaneous cholecystostomy tube is present. Heterogeneous material is present within the gallblad nona. No intrahepatic biliary dilatation. Common bile duct diameter: 2.5 mm Kidneys: Right length: 12.5 cm. Right renal cortical thickness is preserved. Left length: 9.1 cm. Left renal cortical thickness is preserved. Normal echogenicity. No hydronephrosis. No renal calculi. No focal renal lesions. Spleen: Normal in size, no focal lesions. 8.60 No free fluid identified. Normal caliber of the partially visualized aorta. Left anterior abdominal wall abscess cavity is partially visualized. IMPRESSION: Mild gallbladder wall thickening with cholecystostomy catheter in satisfactory position. Heterogeneous echogenic material is present within the gallbladder. Abdominal wall abscess observed on the prior CT scan is incompletely visualized by ultrasound. RPTAT: AADD .Yovanny Pandya MD, Date Time Electronically viewed and signed by .Yovanny Pandya MD, on 02/09/2017 14:21 .B/
--- NOTE | 2017-02-09 18:31 | PN ---
DATE: 02/09/2017 SUBJECTIVE DATA: The patient is awake, but quite sleepy. She does respond appropriately to verbal communication, but is very quiet and untalkable. OBJECTIVE DATA: CHEST: Clear to A and P. HEART: Normal sinus rhythm. ABDOMEN: Liver, kidney, and spleen are not palpable. Bowel sounds are normal. EXTREMITIES: There is no ankle edema. 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 Her heel ulcers appear to be healing. Her heels are kept elevated and off of the bed sheets. She was seen by claim adjuster today. He felt that at this point she does not need dialysis. She is still improving, however, her BUN is rising while her creatinine is falling. He feels this is due to dehydration and he feels the next dialysis will be determined according to her lab results. He wants Epogen restarted and take her off of the Bumex drip and add IV fluids. We will also order an abdominal ultrasound. Intake and output, intake 1530 cc, output 750 cc. LABORATORY DATA: White count 11,800, hemoglobin 8.3 gram percent, hematocrit 28.1 percent, platelet count elevated 493,000. Differential is normal. Sodium 138, potassium 4, chloride 88, carbon dioxide 39, BUN 83, creatinine 1.14, glucose 193. Lactic acid low at 8.3, alkaline phosphatase elevated 230, albumin 2.5, globulin 3.6. Reversal of A/G ratio will be investigated with a serum protein electrophoresis to determine possibility of multiple myeloma or mild dysplastic disease. The last MRSA screen was performed on 01/31/2017 and still showed MRSA. Abdominal ultrasound revealed the following, mild gallbladder wall thickening with cholecystectomy catheter in satisfactory position. Heterogeneous echogenic material is present within the gallbladder. Abdominal wall abscess observed on the prior CT scan is incompletely visualized by ultrasound. Dictated By: Julio Cesar Cunningham MD /fnmalvin/bjc /Document#: [id number]
[2017-02-09] MEDS: LATANOPROST 0.005% 2.5 ML OPH BOTH EYES SCH (20:19)
[2017-02-10] VITALS (11 sets, daily range): BP systolic 107–129; BP diastolic 49–62; PULSE 85–99; RESP 16–20
[2017-02-10] MEDS: LEVALBUTEROL (NEB) 0.31 MG/3 ML AMP HHN SCH ×4 (01:05→19:45)
[2017-02-10] MEDS: INSULIN ASPART [NOVOLOG] 3 ML PEN SC SCH ×6 (01:18→21:00)
[2017-02-10] MEDS: SOD CHLORIDE 0.9% 1,000 ML IV SCH ×2 (03:18→15:11)
[2017-02-10] MEDS: LANSOPRAZOLE 30 MG CAP GTB SCH (05:27)
[2017-02-10 07:44] LABS: ABNORMAL IP MESSAGE 1; BASOPHIL # 0.1 10^3/ul (0.0-0.1); BASOPHILS % 0.4 % (0.0-2.0); EOSINOPHILS # 0.4 10^3/ul (0.0-0.5); EOSINOPHILS % 2.8 % (0.0-7.0); HEMATOCRIT 28.4 % (37.0-47.0); HEMOGLOBIN 8.4 g/dl (12.0-16.0); LYMPHOCYTES % 23.2 % (15.0-51.0); MEAN CORPUSCULAR HEMOGLOBIN 27.7 pg (29.0-33.0); MEAN CORPUSCULAR HGB CONC 29.6 g/dl (32.0-37.0); MEAN CORPUSCULAR VOLUME 93.7 fl (82.0-101.0); MEAN PLATELET VOLUME 9.6 fl (7.4-10.4); MONOCYTE # 1.7 10^3/ul (0.3-0.9); NEUTROPHIL # 7.6 10^3/ul (1.6-7.5); NEUTROPHILS % 59.3 % (39.0-77.0); PLATELET COUNT 512 10^3/UL (140-415); RED BLOOD COUNT 3.03 10^6/ul (4.20-5.40); RED CELL DISTRIBUTION WIDTH 17.4 % (11.5-14.5); WHITE BLOOD COUNT 12.9 10^3/ul (4.8-10.8)
[2017-02-10 07:46] LABS: POSITIVE DIFF @See below
[2017-02-10] MEDS: IPRATROPIUM (NEB) 0.5 MG/2.5 ML AMP HHN SCH ×3 (08:00→19:45)
[2017-02-10 08:13] LABS: ALBUMIN 2.4 g/dl (3.3-4.9); ALBUMIN/GLOBULIN RATIO 0.66; BILIRUBIN,INDIRECT 0.1 mg/dl (0-1.1); BILIRUBIN,TOTAL 0.1 mg/dl (0.2-1.3); CALCIUM 8.1 mg/dl (8.4-10.2); CREATININE 1.08 mg/dl (0.44-1.00)
[2017-02-10] MEDS: ENOXAPARIN 30 MG/0.3 ML SYG SC SCH (08:34)
[2017-02-10] MEDS: FERROUS SULFATE 60 MG/ML 5ML CUP GTB SCH (08:35)
[2017-02-10] MEDS: METOPROLOL 50 MG TAB GTB SCH ×2 (08:35→21:37)
[2017-02-10] MEDS: INSULIN GLARGINE [LANtus] 3 ML PEN SC SCH (08:37)
[2017-02-10] MEDS: MUPIROCIN 2% 22 GM OINT TOP SCH ×2 (08:37→21:37)
[2017-02-10] MEDS: COLLAGENASE 30 GM TUBE TOP SCH (08:39)
[2017-02-10] MEDS: NEOMYC/POLYMYX/BACIT 30 GM OINT TOP SCH (08:40)
--- NOTE | 2017-02-10 09:38 | CONS ---
Date/Time of Note Date/Time of Note DATE: 02/10/17 TIME: 09:28 Assessment/Plan Assessment/Plan Chief Complaint/Hosp Course Impression: 1. Renal failure. Her renal function has improved.. Her urine output is adequate. She does have less flank edema. Her BUN is lower and serum creatinine is normal . I will start some intravenous fluids to see if the BUN decreases. Hopefully her kidneys will continue to improve and will not need further dialysis. 2. Multiple medical problems including insulin-dependent diabetes mellitus, atherosclerotic heart disease with acute [place] and status post cardiac arrest with acute renal failure and anoxic encephalopathy, congestive heart failure, anemia of chronic disease, malnutrition, dysphagia requiring PEG placement , urinary tract infection , acute cholecystitis with drainage tube in place, peripheral vascular disease, history of her respiratory failure, history of acute cholecystitis with gallbladder drainage tube in place . She was admitted now because her gastric feeding tube dislodged and some of her feeding went into her abdominal cavity. She was thought to be septic at the time of admission. 3. she is having some bruising , will check PT/PTT . 4. high CO2 , will check ABG Plan: 1. next dialysis to be determined according to labs and urine output. 2. Restart Epogen. 3. Continue off Bumex drip , add IV fluids. Abdominal ultrasound is done . 4. Will check labs in a.m. Problems: Consultation Date/Type/Reason Admit Date/Time Jan 16, 2017 at 22:45 Initial Consult Date 01/18/17 Type of Consultation: ID Referring Provider: SHAMA LOPEZ MD 24 HR Interval Summary Free Text/Dictation She is sleeping but rouses easily to verbal stimuli . No complaints . she denies pain . Constitutional: no complaints Exam/Review of Systems Vital Signs Vitals Vital Signs Date Time Temp Pulse Resp B/P Pulse Ox O2 Delivery O2 Flow Rate FiO2 02/10/17 08:12 92 02/10/17 08:12 98.3 18 129/60 94 02/08/17 19:53 21 Intake and Output 02/09/17 02/09/17 02/10/17 14:59 22:59 06:59 Intake Total 980 ml 2140 ml Output Total 900 ml 400 ml Balance 80 ml 1740 ml Exam Constitutional: alert, frail, obese Psych: depression Respiratory: clear to auscultation, diminished breath sounds Cardiovascular: edema, regular rate and rhythm Extremities: edema Results Result Diagram: 02/10/17 0636 02/10/17 0636 Results 24 hrs Laboratory Tests Test 02/09/17 09:52 02/09/17 13:18 02/09/17 17:15 02/09/17 20:16 Bedside Glucose 240 H 147 103 117 Test 02/10/17 01:15 02/10/17 05:28 02/10/17 06:36 02/10/17 08:30 Bedside Glucose 166 198 232 H White Blood Count 12.9 H Red Blood Count 3.03 L Hemoglobin 8.4 L Hematocrit 28.4 L Mean Corpuscular Volume 93.7 Mean Corpuscular Hemoglobin 27.7 L Mean Corpuscular Hemoglobin Concent 29.6 L Red Cell Distribution Width 17.4 H Platelet Count 512 H Mean Platelet Volume 9.6 Neutrophils % 59.3 Lymphocytes % 23.2 Monocytes % 13.0 H Eosinophils % 2.8 Basophils % 0.4 Nucleated Red Blood Cells % 0.0 Neutrophils # 7.6 H Lymphocytes # 3.0 H Monocytes # 1.7 H Eosinophils # 0.4 Basophils # 0.1 Nucleated Red Blood Cells # 0.0 Sodium Level 138 Potassium Level 4.0 Chloride Level 89 L Carbon Dioxide Level 39 H Anion Gap 14 Blood Urea Nitrogen 72 H Creatinine 1.08 H Glucose Level 201 Calcium Level 8.1 L Total Bilirubin 0.1 L Direct Bilirubin 0.00 Indirect Bilirubin 0.1 Aspartate Amino Transf (AST/SGOT) 34 Alanine Aminotransferase (ALT/SGPT) 31 Alkaline Phosphatase Pending Total Protein 6.0 L Albumin 2.4 L Globulin 3.60 H Albumin/Globulin Ratio 0.66 Medications Medications Current Medications Miscellaneous Information 1 ea NOTE XX ; Start 01/16/17 at 23:30 Glucose (Glutose) 15 gm Q15M PRN PO DECREASED GLUCOSE; Start 01/16/17 at 23:30 Glucose (Glutose) 22.5 gm Q15M PRN PO DECREASED GLUCOSE; Start 01/16/17 at 23: 30 Dextrose (D50w Syringe) 25 ml Q15M PRN IV DECREASED GLUCOSE Last administered on 01/22/17t 20:54; Admin Dose 25 ML; Start 01/16/17 at 23:30 Dextrose (D50w Syringe) 50 ml Q15M PRN IV DECREASED GLUCOSE; Start 01/16/17 at 23:30 Glucagon (Glucagen) 1 mg Q15M PRN IM DECREASED GLUCOSE; Start 01/16/17 at 23:30 Glucose (Glutose) 15 gm Q15M PRN BUCCAL DECREASED GLUCOSE; Start 01/16/17 at 23 :30 Latanoprost (Xalatan) 1 drop HS BOTH EYES Last administered on 02/09/17 20:19; Admin Dose 1 DROP; Start 01/17/17 at 21:00 Ondansetron HCl (Zofran Inj) 4 mg Q6H PRN IV NAUSEA AND/OR VOMITING; Start at 00:30 Collagenase (Santyl) 1 applic DAILY TOP Last administered on 02/10/17 08:39; Admin Dose 1 APPLIC; Start 01/18/17 at 16:00 Collagenase (Santyl) 1 applic PRN PRN TOP WOUND CARE; Start 01/18/17 at 15:00 Enoxaparin Sodium (Lovenox) 30 mg DAILY SC Last administered on 02/10/17 08:34 ; Admin Dose 30 MG; Start 01/20/17 at 09:00 Bisacodyl (Dulcolax Supp) 10 mg BID PRN [place] CONSTIPATION; Start 01/20/17 at 17: 00 Ferrous Sulfate (Feosol Liquid Cup) 300 mg DAILY GTB Last administered on 08:35; Admin Dose 300 MG; Start 01/24/17 at 16:30 Acetaminophen (Tylenol Liquid) 650 mg Q6H PRN GTB PAIN AND OR ELEVATED TEMP Last administered on 02/02/17 15:08; Admin Dose 650 MG; Start 01/28/17 at 13:30 Metoprolol Tartrate (Lopressor) 50 mg BID GTB Last administered on 02/10/17 08: 35; Admin Dose 50 MG; Start 01/28/17 at 21:00 Neomycin/ Polymyxin/ Bacitracin (Neosporin Topical Oint) 1 applic DAILY TOP Last administered on 02/10/17 08:40; Admin Dose 1 APPLIC; Start 01/31/17 at 09: 00 Lansoprazole (Prevacid) 30 mg DAILY@06 GTB Last administered on 02/10/17 05:27 ; Admin Dose 30 MG; Start 02/01/17 at 06:00 Lorazepam (Ativan) 0.5 mg Q12H PRN IV AGITATION/ANXIETY Last administered on 12:47; Admin Dose 0.5 MG; Start 02/01/17 at 21:00 Mupirocin (Bactroban) 1 applic BID TOP Last administered on 02/10/17 08:37; Admin Dose 1 APPLIC; Start 02/03/17 at 21:00 Insulin Glargine (Lantus) 45 unit DAILY@08 SC Last administered on 02/10/17 08: 37; Admin Dose 45 UNIT; Start 02/07/17 at 08:00 Epoetin Raj (Epogen (Esrd)) 10,000 units MoWeFr@17 SC Last administered on 02/07 16:25; Admin Dose 10,000 UNITS; Start 02/07/17 at 17:00 Insulin Aspart (Novolog Insulin Pen) NOVOLOG *MODERATE* ALGORI... Q4 SC Last administered on 02/10/17 08:38; Admin Dose 6 UNIT; Start 02/07/17 at 13:00 Morphine Sulfate 2 mg 2 mg Q4H PRN IV PAIN; Start 02/08/17 at 12:00 Sodium Chloride (NS) 1,000 ml @ 70 mls/hr [id number] IV Last administered on 22:07; Admin Dose 70 MLS/HR; Start 02/09/17 at 13:00 DAMIR MARTINEZ MD Feb 10, 2017 09:38
[2017-02-10 10:36] LABS: AADO2 Arterial 32.6 mmHg (7.0-24.0); Allen Test ACCEPTAB; Arterial COHb 1.5 % (0.0-3.0); Arterial Fraction of Oxyhgb 92.7 % (93.0-99.0); Arterial HCO3 33.5 mmol/L (22.0-26.0); Arterial MetHb 0.4 % (0.0-1.5); MODE ROOM AIR
[2017-02-10 10:45] LABS: INR 0.94; PROTIME 12.6 Sec (12.2-14.2)
[2017-02-10 10:46] LABS: PARTIAL THROMBOPLASTIN TIME 31.4 Sec (25.0-35.0)
[2017-02-10 10:47] LABS: MAGNESIUM 2.4 mg/dl (1.7-2.5)
--- NOTE | 2017-02-10 13:56 | PN ---
Date/Time of Note Date/Time of Note DATE: 02/10/17 TIME: 13:54 Assessment/Plan Lines/Catheters IV Catheter Type (from Nrsg): PICC Line Urinary Cath still in place: Yes Assessment/Plan Chief Complaint/Hosp Course 02/03 pt stable thru the weekend. completed abx and antifungal. nasal swab still + for mrsa. start the bactroban. d/c back to snf. f/u with renal for regular dialysis. f/u in future with surg after stabilized for lab myron. -meds changed higher dose of metoprolol. higher lantus, on fe q day. 01/31 failed video swallow study. no acute change. transfused 1 u prbc yesterday. prep for d/c on fri is cont to be stable. 01/30 swallow study at bedside- coughing keeping npo to get video swallow study , hgb low but was it draw from picc. 01/[address] at bed side. pt awake and alert. hgb back to 7.7, pulse 100 with increased b-danyel. 01/28 hgb jump 7.7 to 13. yeast in urine -diflucan started wbc lower, pulse jumped to 120's 01/27 elevated wbc lower hgb, ct brain neg 01/[address], feedings started , belly pain improved, scheduled for dialysis 01/23 hgb by picc low again. will repeat draw by arm and if hgb<8.0 will transfuse. gtube rescheduled to today. 01/22 hgb redraw and is higher 8.9. dialysis done today, awaiting gtube reinsertion. 01/21 surg reports ok for gtube replace. gi reports will plan to place in am. cr increased 1.3 to 1.4. choking on apple sauce yesterday. 01/20 dialysis today, low sugar overall bad day today. 01/19gi- awaiting consult for replacement of g-tube. pt not appear to be able to take po nutrition appropriately. GI- g-tube dislodged causing cellulitis of the abd wall. 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 -id following and pt on vanco/zosyn---now changed due to klebsiella to vanco/ merrem . vanco merrem to be completed on 01/25, then will be on ngt augmentin/ bactrim. due to elevated wbc iv abx cont. 01/28 wbc improved abx changed to gtube aug/wilfredo. -gi replace g-tube 01/23. feeding restarted 01/24. -swallow study taking place at bedside. coughing occurred with thin liq , hard to swallow the thicken but no cough. requesting video swallow test. failed. cont gtube feeding. renal- pt producing some urine. renal following and questioning if functionality has improved. fluid overloaded, being diuresed. dialysis restarted. epogen given. -uti now off merrem and starting diflucan pulm has a right lung infiltrate and mod effusion. pulm following tapped for 1 liter removed. abx changed. been stable dm- on sliding scale. no nutrition yet, sugar running low- lantis decreased. d5 running. since feeding has been restarted the accu checks to be expected to go up and will need to increase insulin appropriately. will increase lantus back to 30 u, accu checks elevated will increase to 40u cv- h/o arrest, stent MN, cards following. b-danyel restarted. stable cholecystostomy- surg following and drain changed and growing klebsiella. on abx. doing well. anemia- discussed with renal if transfusion is necessary. pt given epogen. renal to watch. low in FE. awaiting it g-tube to be reinserted or other source for feeding. hgb better 8.2. today cbc drawn from picc and the hgb 7.4. redraw from arm and 8.9. doing fine. lower today need to draw from arm. sudden jump inhgb 13- unclear if this is a true reading. appears to false due to hgb back to 7.7 from picc. will need draw tomorrow from arm. hgb 7.2 drawn from picc. hgb low. transfuse 1 u prbc. hgb 8.9 -changing ppi to prevacid due to gtube. tachycardia- improved on higher dose b-danyel via cards poor iv access. picc in place. isolation to be d/c if the nasal swab is neg for mrsa nasal swab sent today. discharge planning for mon back to snf. get f/u appt for dialysis and surg. Problems: Assessment/Plan 02/10 wbc rising, hgb mild lower 8.4. cr 1.0 but bun rising. 02/03 pt stable thru the weekend. completed abx and antifungal. nasal swab still + for mrsa. start the bactroban. d/c back to snf. f/u with renal for regular dialysis. f/u in future with surg after stabilized for lab myron. -meds changed higher dose of metoprolol. higher lantus, on fe q day. 01/31 failed video swallow study. no acute change. transfused 1 u prbc yesterday. prep for d/c on fri is cont to be stable. 01/30 swallow study at bedside- coughing keeping npo to get video swallow study , hgb low but was it draw from picc. 01/[address] at bed side. pt awake and alert. hgb back to 7.7, pulse 100 with increased b-danyel. 01/28 hgb jump 7.7 to 13. yeast in urine -diflucan started wbc lower, pulse jumped to 120's 01/27 elevated wbc lower hgb, ct brain neg 01/[address], feedings started , belly pain improved, scheduled for dialysis 01/23 hgb by picc low again. will repeat draw by arm and if hgb<8.0 will transfuse. gtube rescheduled to today. 01/22 hgb redraw and is higher 8.9. dialysis done today, awaiting gtube reinsertion. 01/21 surg reports ok for gtube replace. gi reports will plan to place in am. cr increased 1.3 to 1.4. choking on apple sauce yesterday. 01/20 dialysis today, low sugar overall bad day today. 01/19gi- awaiting consult for replacement of g-tube. pt not appear to be able to take po nutrition appropriately. GI- g-tube dislodged causing cellulitis of the abd wall. 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 -id following and pt on vanco/zosyn---now changed due to klebsiella to vanco/ merrem . vanco merrem to be completed on 01/25, then will be on ngt augmentin/ bactrim. due to elevated wbc iv abx cont. 01/28 wbc improved abx changed to gtube feb/. -gi replace g-tube 01/23. feeding restarted 01/24. -swallow study taking place at bedside. coughing occurred with thin liq , hard to swallow the thicken but no cough. requesting video swallow test. failed. cont gtube feeding. renal- pt producing some urine. renal following and questioning if functionality has improved. fluid overloaded, being diuresed. dialysis restarted. epogen given. -uti completed diflucan and abx. now wbc going up will recheck ua. -pt being followed by renal for possibility of needing dialysis. pulm has a right lung infiltrate and mod effusion. pulm following tapped for 1 liter removed. abx changed. been stable dm- on sliding scale. no nutrition yet, sugar running low- lantis decreased. d5 running. since feeding has been restarted the accu checks to be expected to go up and will need to increase insulin appropriately. will increase lantus back to 30 u, accu checks elevated will increase to 40u. in past 24 hours accu check is higher. will need to eval changes that may have taken place. cv- h/o arrest, stent [place], cards following. b-danyel restarted. stable cholecystostomy- surg following and drain changed and growing klebsiella. on abx. doing well. anemia- discussed with renal if transfusion is necessary. pt given epogen. renal to watch. low in FE. awaiting it g-tube to be reinserted or other source for feeding. hgb better 8.2. today cbc drawn from picc and the hgb 7.4. redraw from arm and 8.9. doing fine. lower today need to draw from arm. sudden jump inhgb 13- unclear if this is a true reading. appears to false due to hgb back to 7.7 from picc. will need draw tomorrow from arm. hgb 7.2 drawn from picc. hgb low. transfuse 1 u prbc. hgb 8.9 -changing ppi to prevacid due to gtube. tachycardia- improved on higher dose b-danyel via cards Exam/Review of Systems Vital Signs Vitals Vital Signs Date Time Temp Pulse Resp B/P Pulse Ox O2 Delivery O2 Flow Rate FiO2 02/10/17 12:25 85 02/10/17 11:29 98.6 16 120/60 97 02/08/17 19:53 21 Intake and Output 02/09/17 02/09/17 02/10/17 15:00 23:00 07:00 Intake Total 980 ml 2140 ml Output Total 900 ml 400 ml Balance 80 ml 1740 ml Results Result Diagram: 02/10/17 0636 02/10/17 0636 Results 24 hrs Laboratory Tests Test 02/09/17 17:15 02/09/17 20:16 02/10/17 01:15 02/10/17 05:28 Bedside Glucose 103 117 166 198 Test 02/10/17 06:36 02/10/17 08:30 02/10/17 09:38 02/10/17 09:40 White Blood Count 12.9 H Red Blood Count 3.03 L Hemoglobin 8.4 L Hematocrit 28.4 L Mean Corpuscular Volume 93.7 Mean Corpuscular Hemoglobin 27.7 L Mean Corpuscular Hemoglobin Concent 29.6 L Red Cell Distribution Width 17.4 H Platelet Count 512 H Mean Platelet Volume 9.6 Neutrophils % 59.3 Lymphocytes % 23.2 Monocytes % 13.0 H Eosinophils % 2.8 Basophils % 0.4 Nucleated Red Blood Cells % 0.0 Neutrophils # 7.6 H Lymphocytes # 3.0 H Monocytes # 1.7 H Eosinophils # 0.4 Basophils # 0.1 Nucleated Red Blood Cells # 0.0 Sodium Level 138 Potassium Level 4.0 Chloride Level 89 L Carbon Dioxide Level 39 H Anion Gap 14 Blood Urea Nitrogen 72 H Creatinine 1.08 H Glucose Level 201 Calcium Level 8.1 L Total Bilirubin 0.1 L Direct Bilirubin 0.00 Indirect Bilirubin 0.1 Aspartate Amino Transf (AST/SGOT) 34 Alanine Aminotransferase (ALT/SGPT) 31 Alkaline Phosphatase 281 H Total Protein 6.0 L Albumin 2.4 L Globulin 3.60 H Albumin/Globulin Ratio 0.66 Bedside Glucose 232 H Blood Gas Specimen Source Blood arterial Arterial Blood Date Drawn 02/10/2017 10:20:56 AM Arterial Blood pH (Temp corrected) 7.536 H Arterial Blood pCO2 (Temp correct) 40.4 Arterial Blood pO2 (Temp corrected) 68.8 L Arterial Blood HCO3 33.5 H Arterial Blood Base Excess 10.0 H Arterial Blood Oxygen Saturation 94.5 L Raz Test ACCEPTAB Arterial Blood Gas Puncture Site Left Radial Arterial Blood Carboxyhemoglobin 1.5 Arterial Blood Methemoglobin 0.4 Blood Gas A-a O2 Differential 32.6 H Oxyhemoglobin Percent 92.7 L Total Hemoglobin 9.0 L Blood Gas Temperature 37.0 Blood Gas Modality ROOM AIR FiO2 21.0 Blood Gas Notified Whom JLD Blood Gas Notified Time 02/10/2017 10:35:43 AM Prothrombin Time 12.6 Prothrombin Time Ratio 1.0 INR International Normalized Ratio 0.94 Activated Partial Thromboplast Time 31.4 Phosphorus Level 4.0 Magnesium Level 2.4 Test 02/10/17 12:54 Bedside Glucose 241 H Medications Medications Current Medications Miscellaneous Information 1 ea NOTE XX ; Start 01/16/17 at 23:30 Glucose (Glutose) 15 gm Q15M PRN PO DECREASED GLUCOSE; Start 01/16/17 at 23:30 Glucose (Glutose) 22.5 gm Q15M PRN PO DECREASED GLUCOSE; Start 01/16/17 at 23: 30 Dextrose (D50w Syringe) 25 ml Q15M PRN IV DECREASED GLUCOSE Last administered on 01/22/17 20:54; Admin Dose 25 ML; Start 01/16/17 at 23:30 Dextrose (D50w Syringe) 50 ml Q15M PRN IV DECREASED GLUCOSE; Start 01/16/17 at 23:30 Glucagon (Glucagen) 1 mg Q15M PRN IM DECREASED GLUCOSE; Start 01/16/17 at 23:30 Glucose (Glutose) 15 gm Q15M PRN BUCCAL DECREASED GLUCOSE; Start 01/16/17 at 23 :30 Latanoprost (Xalatan) 1 drop HS BOTH EYES Last administered on 02/09/17 20:19; Admin Dose 1 DROP; Start 01/17/17 at 21:00 Ondansetron HCl (Zofran Inj) 4 mg Q6H PRN IV NAUSEA AND/OR VOMITING; Start at 00:30 Collagenase (Santyl) 1 applic DAILY TOP Last administered on 02/10/17 08:39; Admin Dose 1 APPLIC; Start 01/18/17 at 16:00 Collagenase (Santyl) 1 applic PRN PRN TOP WOUND CARE; Start 01/18/17 at 15:00 Enoxaparin Sodium (Lovenox) 30 mg DAILY SC Last administered on 02/10/17 08:34 ; Admin Dose 30 MG; Start 01/20/17 at 09:00 Bisacodyl (Dulcolax Supp) [address] CONSTIPATION; Start 01/20/17 at 17: 00 Ferrous Sulfate (Feosol Liquid Cup) 300 mg DAILY GTB Last administered on 08:35; Admin Dose 300 MG; Start 01/24/17 at 16:30 Acetaminophen (Tylenol Liquid) 650 mg Q6H PRN GTB PAIN AND OR ELEVATED TEMP Last administered on 02/02/17 15:08; Admin Dose 650 MG; Start 01/28/17 at 13:30 Metoprolol Tartrate (Lopressor) 50 mg BID GTB Last administered on 02/10/17 08: 35; Admin Dose 50 MG; Start 01/28/17 at 21:00 Neomycin/ Polymyxin/ Bacitracin (Neosporin Topical Oint) 1 applic DAILY TOP Last administered on 02/10/17 08:40; Admin Dose 1 APPLIC; Start 01/31/17 at 09: 00 Lansoprazole (Prevacid) 30 mg DAILY@06 GTB Last administered on 02/10/17 05:27 ; Admin Dose 30 MG; Start 02/01/17 at 06:00 Lorazepam (Ativan) 0.5 mg Q12H PRN IV AGITATION/ANXIETY Last administered on 12:47; Admin Dose 0.5 MG; Start 02/01/17 at 21:00 Mupirocin (Bactroban) 1 applic BID TOP Last administered on 02/10/17 08:37; Admin Dose 1 APPLIC; Start 02/03/17 at 21:00 Insulin Glargine (Lantus) 45 unit DAILY@08 SC Last administered on 02/10/17 08: 37; Admin Dose 45 UNIT; Start 02/07/17 at 08:00 Epoetin Raj (Epogen (Esrd)) 10,000 units MoWeFr@17 SC Last administered on 02/07 16:25; Admin Dose 10,000 UNITS; Start 02/07/17 at 17:00 Insulin Aspart (Novolog Insulin Pen) NOVOLOG *MODERATE* ALGORI... Q4 SC Last administered on 02/10/17 12:58; Admin Dose 6 UNIT; Start 02/07/17 at 13:00 Morphine Sulfate 2 mg 2 mg Q4H PRN IV PAIN; Start 02/08/17 at 12:00 Sodium Chloride (NS) 1,000 ml @ 40 mls/hr Q24H IV Last administered on 22:07; Admin Dose 70 MLS/HR; Start 02/09/17 at 13:00 SHAW SRINIVASAN MD Feb 10, 2017 13:56
[2017-02-10] MEDS ORDERED: FLUCONAZOLE 200 MG TAB GTB SCH (14:29)
[2017-02-10 15:51] LABS: CK-MB 3.14 ng/ml (0.0-2.4); TROPONIN-I 0.032 ng/ml (0.00-0.12)
[2017-02-10] MEDS: EPOETIN 10000 UNITS/1 ML INJ (ESRD) SC SCH (17:29)
[2017-02-10 20:58] LABS: CK-MB 2.9 ng/ml (0.0-2.4); TROPONIN-I 0.034 ng/ml (0.00-0.12)
[2017-02-10] MEDS: LATANOPROST 0.005% 2.5 ML OPH BOTH EYES SCH (21:36)
[2017-02-10 23:06] LABS: CK-MB 2.54 ng/ml (0.0-2.4); TROPONIN-I 0.048 ng/ml (0.00-0.12)
[2017-02-11] VITALS (13 sets, daily range): BP systolic 110–142; BP diastolic 55–63; PULSE 83–103; RESP 16–19
[2017-02-11] MEDS: INSULIN ASPART [NOVOLOG] 3 ML PEN SC SCH ×6 (01:00→21:00)
[2017-02-11] MEDS: LEVALBUTEROL (NEB) 0.31 MG/3 ML AMP HHN SCH ×4 (01:59→20:00)
[2017-02-11 02:09] LABS: PROTEIN, TOTAL 5.4 g/dL (6.1-8.1)
[2017-02-11 04:03] LABS: CK-MB 1.95 ng/ml (0.0-2.4)
[2017-02-11 04:09] LABS: TROPONIN-I 0.049 ng/ml (0.00-0.12)
[2017-02-11 04:39] LABS: CREATINE KINASE < 20 IU/L (23-200)
[2017-02-11] MEDS: LANSOPRAZOLE 30 MG CAP GTB SCH (06:31)
[2017-02-11 07:57] LABS: ABNORMAL IP MESSAGE 1; BASOPHIL # 0.1 10^3/ul (0.0-0.1); BASOPHILS % 0.3 % (0.0-2.0); EOSINOPHILS # 0.3 10^3/ul (0.0-0.5); EOSINOPHILS % 1.9 % (0.0-7.0); HEMATOCRIT 27.8 % (37.0-47.0); HEMOGLOBIN 8.1 g/dl (12.0-16.0); LYMPHOCYTES # 3.4 10^3/ul (0.8-2.9); LYMPHOCYTES % 22.4 % (15.0-51.0); MEAN CORPUSCULAR HEMOGLOBIN 27.4 pg (29.0-33.0); MEAN CORPUSCULAR HGB CONC 29.1 g/dl (32.0-37.0); MEAN CORPUSCULAR VOLUME 93.9 fl (82.0-101.0); MEAN PLATELET VOLUME 9.2 fl (7.4-10.4); MONOCYTE # 1.8 10^3/ul (0.3-0.9); MONOCYTES % 11.9 % (0.0-11.0); NEUTROPHIL # 9.3 10^3/ul (1.6-7.5); NEUTROPHILS % 61.7 % (39.0-77.0); PLATELET COUNT 471 10^3/UL (140-415); RED BLOOD COUNT 2.96 10^6/ul (4.20-5.40); RED CELL DISTRIBUTION WIDTH 17.8 % (11.5-14.5)
[2017-02-11] MEDS: IPRATROPIUM (NEB) 0.5 MG/2.5 ML AMP HHN SCH ×3 (07:59→20:00)
[2017-02-11 08:11] LABS: POSITIVE DIFF @See below
[2017-02-11 08:27] LABS: ALBUMIN 2.4 g/dl (3.3-4.9); ALBUMIN/GLOBULIN RATIO 0.66; CALCIUM 8.3 mg/dl (8.4-10.2); CREATININE 1.06 mg/dl (0.44-1.00); POTASSIUM 3.9 mmol/L (3.5-5.1)
[2017-02-11 08:36] LABS: CK-MB 2.4 ng/ml (0.0-2.4); TROPONIN-I 0.053 ng/ml (0.00-0.12)
[2017-02-11] MEDS: FERROUS SULFATE 60 MG/ML 5ML CUP GTB SCH (08:48)
[2017-02-11] MEDS: FLUCONAZOLE 100 MG TAB GTB SCH (08:48)
[2017-02-11] MEDS: METOPROLOL 50 MG TAB GTB SCH ×2 (08:49→21:34)
[2017-02-11] MEDS: ENOXAPARIN 30 MG/0.3 ML SYG SC SCH (08:52)
[2017-02-11] MEDS: INSULIN GLARGINE [LANtus] 3 ML PEN SC SCH (08:53)
[2017-02-11] MEDS: NEOMYC/POLYMYX/BACIT 30 GM OINT TOP SCH (08:54)
[2017-02-11] MEDS: COLLAGENASE 30 GM TUBE TOP SCH (08:54)
[2017-02-11] MEDS: MUPIROCIN 2% 22 GM OINT TOP SCH ×2 (08:54→21:34)
--- NOTE | 2017-02-11 10:48 | CONS ---
Date/Time of Note Date/Time of Note DATE: 02/11/17 TIME: 10:44 Assessment/Plan Assessment/Plan Chief Complaint/Hosp Course Impression: 1. Renal failure. Her renal function has improved.. Her urine output is adequate. She does have less flank edema. Her BUN is lower and serum creatinine is normal . I will start some intravenous fluids to see if the BUN decreases. Hopefully her kidneys will continue to improve and will not need further dialysis. She continues to be alkalotic on blood pH. I will start her on a course of acetazolamide ( Diamox ) to try and correct her alkalosis. She has not required dialysis for at least a week and a half. 2. Multiple medical problems including insulin-dependent diabetes mellitus, atherosclerotic heart disease with acute VA and status post cardiac arrest with acute renal failure and anoxic encephalopathy, congestive heart failure, anemia of chronic disease, malnutrition, dysphagia requiring PEG placement , urinary tract infection , acute cholecystitis with drainage tube in place, peripheral vascular disease, history of her respiratory failure, history of acute cholecystitis with gallbladder drainage tube in place . She was admitted now because her gastric feeding tube dislodged and some of her feeding went into her abdominal cavity. She was thought to be septic at the time of admission. 3. she is having some bruising , will check PT/PTT . 4. high CO2 , will check ABG . the ABG shows that she has a metabolic alkalosis. I will start a course of acetazolamide . Plan: 1. next dialysis to be determined according to labs and urine output. 2. Restart Epogen. 3. Continue off Bumex drip , add IV fluids. Abdominal ultrasound is done . 4. Will check labs in a.m. Problems: Consultation Date/Type/Reason Admit Date/Time Jan 16, 2017 at 22:45 Initial Consult Date 01/18/17 Type of Consultation: ID Referring Provider: SHAMA LOPEZ MD 24 HR Interval Summary Free Text/Dictation She is sleeping. She arouses easily to verbal stimuli. She denies pain. She has no other complaints. 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 She has minimal flank edema. Constitutional: alert, frail, obese, oriented Head: normocephalic ENMT: nl external ears & nose, nl lips & teeth, nl nasal mucosa & septum Respiratory: clear to auscultation, diminished breath sounds Cardiovascular: regular rate and rhythm Gastrointestinal: non-tender, soft Results Result Diagram: 02/11/17 0743 02/11/17 0743 Results 24 hrs Laboratory Tests Test 02/10/17 12:54 02/10/17 15:07 02/10/17 17:23 02/10/17 20:02 Bedside Glucose 241 H 184 Creatine Kinase 25 21 L Creatine Kinase Index 12.6 13.8 Creatinine Kinase MB (Mass) 3.14 H 2.90 H Troponin I 0.032 0.034 Test 02/10/17 20:36 02/10/17 22:17 02/11/17 02:50 02/11/17 05:27 Bedside Glucose 145 100 Creatine Kinase 26 < 20 L Creatine Kinase Index 9.8 Creatinine Kinase MB (Mass) 2.54 H 1.95 Troponin I 0.048 0.049 Test 02/11/17 07:43 02/11/17 08:44 White Blood Count 15.0 H Red Blood Count 2.96 L Hemoglobin 8.1 L Hematocrit 27.8 L Mean Corpuscular Volume 93.9 Mean Corpuscular Hemoglobin 27.4 L Mean Corpuscular Hemoglobin Concent 29.1 L Red Cell Distribution Width 17.8 H Platelet Count 471 H Mean Platelet Volume 9.2 Neutrophils % 61.7 Lymphocytes % 22.4 Monocytes % 11.9 H Eosinophils % 1.9 Basophils % 0.3 Nucleated Red Blood Cells % 0.0 Neutrophils # 9.3 H Lymphocytes # 3.4 H Monocytes # 1.8 H Eosinophils # 0.3 Basophils # 0.1 Nucleated Red Blood Cells # 0.0 Sodium Level 139 Potassium Level 3.9 Chloride Level 93 L Carbon Dioxide Level 39 H Anion Gap 11 Blood Urea Nitrogen 67 H Creatinine 1.06 H Glucose Level 90 # Calcium Level 8.3 L Total Bilirubin 0.0 L Direct Bilirubin 0.00 Indirect Bilirubin 0.0 Aspartate Amino Transf (AST/SGOT) 27 Alanine Aminotransferase (ALT/SGPT) 28 Alkaline Phosphatase 222 H Creatine Kinase 29 Creatine Kinase Index 8.3 Creatinine Kinase MB (Mass) 2.40 Troponin I 0.053 Total Protein 6.0 L Albumin 2.4 L Globulin 3.60 H Albumin/Globulin Ratio 0.66 Bedside Glucose 121 Medications Medications Current Medications Miscellaneous Information 1 ea NOTE XX ; Start 01/16/17 at 23:30 Glucose (Glutose) 15 gm Q15M PRN PO DECREASED GLUCOSE; Start 01/16/17 at 23:30 Glucose (Glutose) 22.5 gm Q15M PRN PO DECREASED GLUCOSE; Start 01/16/17 at 23: 30 Dextrose (D50w Syringe) 25 ml Q15M PRN IV DECREASED GLUCOSE Last administered on 01/22/17 20:54; Admin Dose 25 ML; Start 01/16/17 at 23:30 Dextrose (D50w Syringe) 50 ml Q15M PRN IV DECREASED GLUCOSE; Start 01/16/17 at 23:30 Glucagon (Glucagen) 1 mg Q15M PRN IM DECREASED GLUCOSE; Start 01/16/17 at 23:30 Glucose (Glutose) 15 gm Q15M PRN BUCCAL DECREASED GLUCOSE; Start 01/16/17 at 23 :30 Latanoprost (Xalatan) 1 drop HS BOTH EYES Last administered on 02/10/17 21:36; Admin Dose 1 DROP; Start 01/17/17 at 21:00 Ondansetron HCl (Zofran Inj) 4 mg Q6H PRN IV NAUSEA AND/OR VOMITING; Start at 00:30 Collagenase (Santyl) 1 applic DAILY TOP Last administered on 02/11/17 08:54; Admin Dose 1 APPLIC; Start 01/18/17 at 16:00 Collagenase (Santyl) 1 applic PRN PRN TOP WOUND CARE; Start 01/18/17 at 15:00 Enoxaparin Sodium (Lovenox) 30 mg DAILY SC Last administered on 02/11/17 08:52 ; Admin Dose 30 MG; Start 01/20/17 at 09:00 Bisacodyl (Dulcolax Supp) 10 mg BID PRN [place] CONSTIPATION; Start 01/20/17 at 17: 00 Ferrous Sulfate (Feosol Liquid Cup) 300 mg DAILY GTB Last administered on 08:48; Admin Dose 300 MG; Start 01/24/17 at 16:30 Acetaminophen (Tylenol Liquid) 650 mg Q6H PRN GTB PAIN AND OR ELEVATED TEMP Last administered on 02/02/17 15:08; Admin Dose 650 MG; Start 01/28/17 at 13:30 Metoprolol Tartrate (Lopressor) 50 mg BID GTB Last administered on 02/11/17 08: 49; Admin Dose 50 MG; Start 01/28/17 at 21:00 Neomycin/ Polymyxin/ Bacitracin (Neosporin Topical Oint) 1 applic DAILY TOP Last administered on 02/11/17 08:54; Admin Dose 1 APPLIC; Start 01/31/17 at 09: 00 Lansoprazole (Prevacid) 30 mg DAILY@06 GTB Last administered on 02/11/17 06:31 ; Admin Dose 30 MG; Start 02/01/17 at 06:00 Lorazepam (Ativan) 0.5 mg Q12H PRN IV AGITATION/ANXIETY Last administered on 12:47; Admin Dose 0.5 MG; Start 02/01/17 at 21:00 Mupirocin (Bactroban) 1 applic BID TOP Last administered on 02/11/17 08:54; Admin Dose 1 APPLIC; Start 02/03/17 at 21:00 Insulin Glargine (Lantus) 45 unit DAILY@08 SC Last administered on 02/11/17 08: 53; Admin Dose 45 UNIT; Start 02/07/17 at 08:00 Epoetin Raj (Epogen (Esrd)) 10,000 units MoWeFr@17 SC Last administered on 02/10 17:29; Admin Dose 10,000 UNITS; Start 02/07/17 at 17:00 Insulin Aspart (Novolog Insulin Pen) NOVOLOG *MODERATE* ALGORI... Q4 SC Last administered on 02/10/17 17:30; Admin Dose 4 UNIT; Start 02/07/17 at 13:00 Morphine Sulfate 2 mg 2 mg Q4H PRN IV PAIN; Start 02/08/17 at 12:00 Sodium Chloride (NS) 1,000 ml @ 40 mls/hr Q24H IV Last administered on 15:11; Admin Dose 40 MLS/HR; Start 02/09/17 at 13:00 Fluconazole (Diflucan) 100 mg DAILY GTB Last administered on 02/11/17 08:48; Admin Dose 100 MG; Start 02/11/17 at 09:00; Stop 02/20/17 at 08:59 DAMIR MARTINEZ MD Feb 11, 2017 10:48
[2017-02-11 11:17] LABS: CK-MB 2.47 ng/ml (0.0-2.4); TROPONIN-I 0.049 ng/ml (0.00-0.12)
--- NOTE | 2017-02-11 12:42 | PN ---
Date/Time of Note Date/Time of Note DATE: 02/11/17 TIME: 12:38 Assessment/Plan VTE Prophylaxis VTE Prophylaxis Intervention: LMWH Lines/Catheters IV Catheter Type (from Nrsg): PICC Line Central line still needed: Yes Urinary Cath still in place: Yes Reason Cath still needed: other (indicate) Assessment/Plan Assessment/Plan Chief Complaint/Hosp Course 02/11wbc going up . ua alway dirty. will discuss again with ID. bactoban to be completed tomorrow. gained 7 KG weight in 1 night? 02/03 pt stable thru the weekend. completed abx and antifungal. nasal swab still + for mrsa. start the bactroban. d/c back to snf. f/u with renal for regular dialysis. f/u in future with surg after stabilized for lab myron. -meds changed higher dose of metoprolol. higher lantus, on fe q day. 01/31 failed video swallow study. no acute change. transfused 1 u prbc yesterday. prep for d/c on fri is cont to be stable. 01/30 swallow study at bedside- coughing keeping npo to get video swallow study , hgb low but was it draw from picc. 01/[address] at bed side. pt awake and alert. hgb back to 7.7, pulse 100 with increased b-danyel. 01/28 hgb jump 7.7 to 13. yeast in urine -diflucan started wbc lower, pulse jumped to 120's 01/27 elevated wbc lower hgb, ct brain neg 01/[address], feedings started , belly pain improved, scheduled for dialysis 01/23 hgb by picc low again. will repeat draw by arm and if hgb<8.0 will transfuse. gtube rescheduled to today. 01/22 hgb redraw and is higher 8.9. dialysis done today, awaiting gtube reinsertion. 01/21 surg reports ok for gtube replace. gi reports will plan to place in am. cr increased 1.3 to 1.4. choking on apple sauce yesterday. 01/20 dialysis today, low sugar overall bad day today. 01/19gi- awaiting consult for replacement of g-tube. pt not appear to be able to take po nutrition appropriately. GI- g-tube dislodged causing cellulitis of the abd wall. 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 -id following and pt on vanco/zosyn---now changed due to klebsiella to vanco/ merrem . vanco merrem to be completed on 01/25, then will be on ngt augmentin/ bactrim. due to elevated wbc iv abx cont. 01/28 wbc improved abx changed to gtube aug/wilfredo. -gi replace g-tube 01/23. feeding restarted 01/24. -swallow study taking place at bedside. coughing occurred with thin liq , hard to swallow the thicken but no cough. requesting video swallow test. failed. cont gtube feeding. renal- pt producing some urine. renal following and questioning if functionality has improved. fluid overloaded, being diuresed. dialysis restarted. epogen given. -uti now off merrem and starting diflucan pulm has a right lung infiltrate and mod effusion. pulm following tapped for 1 liter removed. abx changed. been stable dm- on sliding scale. no nutrition yet, sugar running low- lantis decreased. d5 running. since feeding has been restarted the accu checks to be expected to go up and will need to increase insulin appropriately. will increase lantus back to 30 u, accu checks elevated will increase cv- h/o arrest, stent [place], cards following. b-danyel restarted. stable cholecystostomy- surg following and drain changed and growing klebsiella. on abx. doing well. anemia--changing ppi to prevacid due to gtube. hgb slowly getting lower. on epo. cont to follow. cont fe tachycardia- improved on higher dose b-danyel via cards poor iv access. picc in place. nasal mrsa was +, day #9 bactroban. complete tomorrow. then will recheck the swab. . Exam/Review of Systems Vital Signs Vitals Vital Signs Date Time Temp Pulse Resp B/P Pulse Ox O2 Delivery O2 Flow Rate FiO2 02/11/17 12:17 87 02/11/17 12:10 98.7 18 110/56 95 02/10/17 19:46 21 Intake and Output 02/10/17 02/10/17 02/11/17 14:59 22:59 06:59 Intake Total 1340 ml 900 ml Output Total 650 ml 600 ml Balance 690 ml 300 ml Results Result Diagram: 02/11/17 0743 02/11/17 0743 Results 24 hrs Laboratory Tests Test 02/10/17 12:54 02/10/17 15:07 02/10/17 17:23 02/10/17 20:02 Bedside Glucose 241 H 184 Creatine Kinase 25 21 L Creatine Kinase Index 12.6 13.8 Creatinine Kinase MB (Mass) 3.14 H 2.90 H Troponin I 0.032 0.034 Test 02/10/17 20:36 02/10/17 22:17 02/11/17 02:50 02/11/17 05:27 Bedside Glucose 145 100 Creatine Kinase 26 < 20 L Creatine Kinase Index 9.8 Creatinine Kinase MB (Mass) 2.54 H 1.95 Troponin I 0.048 0.049 Test 02/11/17 07:43 02/11/17 08:44 02/11/17 09:55 White Blood Count 15.0 H Red Blood Count 2.96 L Hemoglobin 8.1 L Hematocrit 27.8 L Mean Corpuscular Volume 93.9 Mean Corpuscular Hemoglobin 27.4 L Mean Corpuscular Hemoglobin Concent 29.1 L Red Cell Distribution Width 17.8 H Platelet Count 471 H Mean Platelet Volume 9.2 Neutrophils % 61.7 Lymphocytes % 22.4 Monocytes % 11.9 H Eosinophils % 1.9 Basophils % 0.3 Nucleated Red Blood Cells % 0.0 Neutrophils # 9.3 H Lymphocytes # 3.4 H Monocytes # 1.8 H Eosinophils # 0.3 Basophils # 0.1 Nucleated Red Blood Cells # 0.0 Sodium Level 139 Potassium Level 3.9 Chloride Level 93 L Carbon Dioxide Level 39 H Anion Gap 11 Blood Urea Nitrogen 67 H Creatinine 1.06 H Glucose Level 90 # Calcium Level 8.3 L Total Bilirubin 0.0 L Direct Bilirubin 0.00 Indirect Bilirubin 0.0 Aspartate Amino Transf (AST/SGOT) 27 Alanine Aminotransferase (ALT/SGPT) 28 Alkaline Phosphatase 222 H Creatine Kinase 29 25 Creatine Kinase Index 8.3 9.9 Creatinine Kinase MB (Mass) 2.40 2.47 H Troponin I 0.053 0.049 Total Protein 6.0 L Albumin 2.4 L Globulin 3.60 H Albumin/Globulin Ratio 0.66 Bedside Glucose 121 Medications Medications Current Medications Miscellaneous Information 1 ea NOTE XX ; Start 01/16/17 at 23:30 Glucose (Glutose) 15 gm Q15M PRN PO DECREASED GLUCOSE; Start 01/16/17 at 23:30 Glucose (Glutose) 22.5 gm Q15M PRN PO DECREASED GLUCOSE; Start 01/16/17 at 23: 30 Dextrose (D50w Syringe) 25 ml Q15M PRN IV DECREASED GLUCOSE Last administered on 01/22/17 20:54; Admin Dose 25 ML; Start 01/16/17 at 23:30 Dextrose (D50w Syringe) 50 ml Q15M PRN IV DECREASED GLUCOSE; Start 01/16/17 at 23:30 Glucagon (Glucagen) 1 mg Q15M PRN IM DECREASED GLUCOSE; Start 01/16/17 at 23:30 Glucose (Glutose) 15 gm Q15M PRN BUCCAL DECREASED GLUCOSE; Start 01/16/17 at 23 :30 Latanoprost (Xalatan) 1 drop HS BOTH EYES Last administered on 02/10/17 21:36; Admin Dose 1 DROP; Start 01/17/17 at 21:00 Ondansetron HCl (Zofran Inj) 4 mg Q6H PRN IV NAUSEA AND/OR VOMITING; Start at 00:30 Collagenase (Santyl) 1 applic DAILY TOP Last administered on 02/11/17 08:54; Admin Dose 1 APPLIC; Start 01/18/17 at 16:00 Collagenase (Santyl) 1 applic PRN PRN TOP WOUND CARE; Start 01/18/17 at 15:00 Enoxaparin Sodium (Lovenox) 30 mg DAILY SC Last administered on 02/11/17 08:52 ; Admin Dose 30 MG; Start 01/20/17 at 09:00 Bisacodyl (Dulcolax Supp) 10 mg BID PRN [place] CONSTIPATION; Start 01/20/17 at 17: 00 Ferrous Sulfate (Feosol Liquid Cup) 300 mg DAILY GTB Last administered on 08:48; Admin Dose 300 MG; Start 01/24/17 at 16:30 Acetaminophen (Tylenol Liquid) 650 mg Q6H PRN GTB PAIN AND OR ELEVATED TEMP Last administered on 02/02/17 15:08; Admin Dose 650 MG; Start 01/28/17 at 13:30 Metoprolol Tartrate (Lopressor) 50 mg BID GTB Last administered on 02/11/17 08: 49; Admin Dose 50 MG; Start 01/28/17 at 21:00 Neomycin/ Polymyxin/ Bacitracin (Neosporin Topical Oint) 1 applic DAILY TOP Last administered on 02/11/17 08:54; Admin Dose 1 APPLIC; Start 01/31/17 at 09: 00 Lansoprazole (Prevacid) 30 mg DAILY@06 GTB Last administered on 02/11/17 06:31 ; Admin Dose 30 MG; Start 02/01/17 at 06:00 Lorazepam (Ativan) 0.5 mg Q12H PRN IV AGITATION/ANXIETY Last administered on 12:47; Admin Dose 0.5 MG; Start 02/01/17 at 21:00 Mupirocin (Bactroban) 1 applic BID TOP Last administered on 02/11/17 08:54; Admin Dose 1 APPLIC; Start 02/03/17 at 21:00 Insulin Glargine (Lantus) 45 unit DAILY@08 SC Last administered on 02/11/17 08: 53; Admin Dose 45 UNIT; Start 02/07/17 at 08:00 Epoetin Raj (Epogen (Esrd)) 10,000 units MoWeFr@17 SC Last administered on 02/10 17:29; Admin Dose 10,000 UNITS; Start 02/07/17 at 17:00 Insulin Aspart (Novolog Insulin Pen) NOVOLOG *MODERATE* ALGORI... Q4 SC Last administered on 02/10/17 17:30; Admin Dose 4 UNIT; Start 02/07/17 at 13:00 Morphine Sulfate 2 mg 2 mg Q4H PRN IV PAIN; Start 02/08/17 at 12:00 Sodium Chloride (NS) 1,000 ml @ 40 mls/hr Q24H IV Last administered on 15:11; Admin Dose 40 MLS/HR; Start 02/09/17 at 13:00 Fluconazole (Diflucan) 100 mg DAILY GTB Last administered on 02/11/17 08:48; Admin Dose 100 MG; Start 02/11/17 at 09:00; Stop 02/20/17 at 08:59 Acetazolamide (Diamox) 250 mg BID GTB ; Start 02/11/17 at 12:00 SHAW SRINIVASAN MD Feb 11, 2017 12:42 Creatinine Kinase MB (Mass) 2.40 2.47 H Troponin I 0.053 0.049 Total Protein 6.0 L Albumin 2.4 L Globulin 3.60 H Albumin/Globulin Ratio 0.66 Bedside Glucose 121 Medications Medications Current Medications Miscellaneous Information 1 ea NOTE XX ; Start 01/16/17 at 23:30 Glucose (Glutose) 15 gm Q15M PRN PO DECREASED GLUCOSE; Start 01/16/17 at 23:30 Glucose (Glutose) 22.5 gm Q15M PRN PO DECREASED GLUCOSE; Start 01/16/17 at 23: 30 Dextrose (D50w Syringe) 25 ml Q15M PRN IV DECREASED GLUCOSE Last administered on 01/22/17 20:54; Admin Dose 25 ML; Start 01/16/17 at 23:30 Dextrose (D50w Syringe) 50 ml Q15M PRN IV DECREASED GLUCOSE; Start 01/16/17 at 23:30 Glucagon (Glucagen) 1 mg Q15M PRN IM DECREASED GLUCOSE; Start 01/16/17 at 23:30 Glucose (Glutose) 15 gm Q15M PRN BUCCAL DECREASED GLUCOSE; Start 01/16/17 at 23 :30 Latanoprost (Xalatan) 1 drop HS BOTH EYES Last administered on 02/10/17 21:36; Admin Dose 1 DROP; Start 01/17/17 at 21:00 Ondansetron HCl (Zofran Inj) 4 mg Q6H PRN IV NAUSEA AND/OR VOMITING; Start at 00:30 Collagenase (Santyl) 1 applic DAILY TOP Last administered on 02/11/17 08:54; Admin Dose 1 APPLIC; Start 01/18/17 at 16:00 Collagenase (Santyl) 1 applic PRN PRN TOP WOUND CARE; Start 01/18/17 at 15:00 Enoxaparin Sodium (Lovenox) 30 mg DAILY SC Last administered on 02/11/17 08:52 ; Admin Dose 30 MG; Start 01/20/17 at 09:00 Bisacodyl (Dulcolax Supp) 10 mg BID PRN [place] CONSTIPATION; Start 01/20/17 at 17: 00 Ferrous Sulfate (Feosol Liquid Cup) 300 mg DAILY GTB Last administered on 08:48; Admin Dose 300 MG; Start 01/24/17 at 16:30 Acetaminophen (Tylenol Liquid) 650 mg Q6H PRN GTB PAIN AND OR ELEVATED TEMP Last administered on 02/02/17 15:08; Admin Dose 650 MG; Start 01/28/17 at 13:30 Metoprolol Tartrate (Lopressor) 50 mg BID GTB Last administered on 02/11/17 08: 49; Admin Dose 50 MG; Start 01/28/17 at 21:00 Neomycin/ Polymyxin/ Bacitracin (Neosporin Topical Oint) 1 applic DAILY TOP Last administered on 02/11/17 08:54; Admin Dose 1 APPLIC; Start 01/31/17 at 09: 00 Lansoprazole (Prevacid) 30 mg DAILY@06 GTB Last administered on 02/11/17 06:31 ; Admin Dose 30 MG; Start 02/01/17 at 06:00 Lorazepam (Ativan) 0.5 mg Q12H PRN IV AGITATION/ANXIETY Last administered on 12:47; Admin Dose 0.5 MG; Start 02/01/17 at 21:00 Mupirocin (Bactroban) 1 applic BID TOP Last administered on 02/11/17 08:54; Admin Dose 1 APPLIC; Start 02/03/17 at 21:00 Insulin Glargine (Lantus) 45 unit DAILY@08 SC Last administered on 02/11/17 08: 53; Admin Dose 45 UNIT; Start 02/07/17 at 08:00 Epoetin Raj (Epogen (Esrd)) 10,000 units MoWeFr@17 SC Last administered on 02/10 17:29; Admin Dose 10,000 UNITS; Start 02/07/17 at 17:00 Insulin Aspart (Novolog Insulin Pen) NOVOLOG *MODERATE* ALGORI... Q4 SC Last administered on 02/10/17 17:30; Admin Dose 4 UNIT; Start 02/07/17 at 13:00 Morphine Sulfate 2 mg 2 mg Q4H PRN IV PAIN; Start 02/08/17 at 12:00 Sodium Chloride (NS) 1,000 ml @ 40 mls/hr Q24H IV Last administered on 15:11; Admin Dose 40 MLS/HR; Start 02/09/17 at 13:00 Fluconazole (Diflucan) 100 mg DAILY GTB Last administered on 02/11/17 08:48; Admin Dose 100 MG; Start 02/11/17 at 09:00; Stop 02/20/17 at 08:59 Acetazolamide (Diamox) 250 mg BID GTB ; Start 02/11/17 at 12:00 SHAW SRINIVASAN MD Feb 11, 2017 12:42
[2017-02-11] MEDS: ACETAZOLAMIDE 250 MG TAB GTB SCH ×2 (13:12→21:33)
[2017-02-11 15:42] LABS: CK-MB 2.53 ng/ml (0.0-2.4); TROPONIN-I 0.036 ng/ml (0.00-0.12)
[2017-02-11] MEDS: SOD CHLORIDE 0.9% 1,000 ML IV SCH (17:28)
[2017-02-11] MEDS: LATANOPROST 0.005% 2.5 ML OPH BOTH EYES SCH (21:34)
[2017-02-12] VITALS (11 sets, daily range): BP systolic 108–121; BP diastolic 52–63; PULSE 88–101; RESP 18–19
[2017-02-12] MEDS: INSULIN ASPART [NOVOLOG] 3 ML PEN SC SCH ×6 (01:00→21:00)
[2017-02-12] MEDS: LEVALBUTEROL (NEB) 0.31 MG/3 ML AMP HHN SCH ×4 (01:13→19:43)
[2017-02-12 02:21] LABS: PROTEIN, TOTAL 5.5 g/dL (6.1-8.1)
[2017-02-12] MEDS: LANSOPRAZOLE 30 MG CAP GTB SCH (06:08)
[2017-02-12 07:42] LABS: ABNORMAL IP MESSAGE 1; BASOPHILS % 0.3 % (0.0-2.0); EOSINOPHILS # 0.4 10^3/ul (0.0-0.5); EOSINOPHILS % 3.1 % (0.0-7.0); HEMATOCRIT 27.1 % (37.0-47.0); HEMOGLOBIN 7.9 g/dl (12.0-16.0); LYMPHOCYTES # 2.9 10^3/ul (0.8-2.9); LYMPHOCYTES % 20.5 % (15.0-51.0); MEAN CORPUSCULAR HEMOGLOBIN 27.7 pg (29.0-33.0); MEAN CORPUSCULAR HGB CONC 29.2 g/dl (32.0-37.0); MEAN CORPUSCULAR VOLUME 95.1 fl (82.0-101.0); MEAN PLATELET VOLUME 9.6 fl (7.4-10.4); MONOCYTE # 1.7 10^3/ul (0.3-0.9); MONOCYTES % 12.3 % (0.0-11.0); NEUTROPHIL # 8.7 10^3/ul (1.6-7.5); NEUTROPHILS % 62.1 % (39.0-77.0); PLATELET COUNT 491 10^3/UL (140-415); RED BLOOD COUNT 2.85 10^6/ul (4.20-5.40); RED CELL DISTRIBUTION WIDTH 17.7 % (11.5-14.5)
[2017-02-12 07:45] LABS: POSITIVE DIFF @See below
[2017-02-12] MEDS: IPRATROPIUM (NEB) 0.5 MG/2.5 ML AMP HHN SCH ×3 (08:00→19:43)
[2017-02-12 08:06] LABS: ALBUMIN 2.3 g/dl (3.3-4.9); ALBUMIN/GLOBULIN RATIO 0.63; CALCIUM 8.2 mg/dl (8.4-10.2); CREATININE 1.03 mg/dl (0.44-1.00); POTASSIUM 3.7 mmol/L (3.5-5.1); TOTAL PROTEIN 5.9 g/dl (6.1-8.1)
--- NOTE | 2017-02-12 08:11 | CONS ---
Date/Time of Note Date/Time of Note DATE: 02/12/17 TIME: 08:08 Assessment/Plan Assessment/Plan Chief Complaint/Hosp Course Impression: 1. Renal failure. Her renal function has improved.. Her urine output is adequate. She does have less flank edema. Her BUN is lower and serum creatinine is normal . I will start some intravenous fluids to see if the BUN decreases. Hopefully her kidneys will continue to improve and will not need further dialysis. She continues to be alkalotic on blood pH. I will start her on a course of acetazolamide ( Diamox ) to try and correct her alkalosis. She has not required dialysis for at least a week and a half. 2. Multiple medical problems including insulin-dependent diabetes mellitus, atherosclerotic heart disease with acute TN and status post cardiac arrest with acute renal failure and anoxic encephalopathy, congestive heart failure, anemia of chronic disease, malnutrition, dysphagia requiring PEG placement , urinary tract infection , acute cholecystitis with drainage tube in place, peripheral vascular disease, history of her respiratory failure, history of acute cholecystitis with gallbladder drainage tube in place . She was admitted now because her gastric feeding tube dislodged and some of her feeding went into her abdominal cavity. She was thought to be septic at the time of admission. 3. she is having some bruising , will check PT/PTT . 4. high CO2 , will check ABG . the ABG shows that she has a metabolic alkalosis. I will start a course of acetazolamide . Plan: 1. next dialysis to be determined according to labs and urine output. 2. Restart Epogen. 3. On Acetozolamide ( Diamox ) 4. Will check labs in a.m. Problems: Consultation Date/Type/Reason Admit Date/Time Jan 16, 2017 at 22:45 Initial Consult Date 01/18/17 Type of Consultation: ID Referring Provider: SHAMA LOPEZ MD 24 HR Interval Summary Free Text/Dictation She is sleeping. She arouses easily to verbal stimuli. She has no complaints. She denies pain. She seems comfortable. Constitutional: no complaints Exam/Review of Systems Vital Signs Vitals Vital Signs Date Time Temp Pulse Resp B/P Pulse Ox O2 Delivery O2 Flow Rate FiO2 02/12/17 07:31 98.7 104 18 108/52 94 02/12/17 01:14 21 Intake and Output 02/11/17 02/11/17 02/12/17 15:00 23:00 07:00 Intake Total 980 ml 1260 ml Output Total 600 ml 600 ml Balance 380 ml 660 ml Exam She has gangrenous toes on both feet. Constitutional: alert, frail, obese, oriented ENMT: nl external ears & nose Neck: supple Respiratory: clear to auscultation, normal air movement Cardiovascular: regular rate and rhythm Gastrointestinal: non-tender, soft Results Result Diagram: 02/12/17 0638 02/11/17 0743 Results 24 hrs Laboratory Tests Test 02/11/17 08:44 02/11/17 09:55 02/11/17 13:06 02/11/17 14:26 Bedside Glucose 121 139 Creatine Kinase 25 32 Creatine Kinase Index 9.9 7.9 Creatinine Kinase MB (Mass) 2.47 H 2.53 H Troponin I 0.049 0.036 Test 02/11/17 17:26 02/11/17 21:32 02/12/17 01:09 02/12/17 05:07 Bedside Glucose 120 99 104 153 Test 02/12/17 06:38 White Blood Count 14.0 H Red Blood Count 2.85 L Hemoglobin 7.9 L Hematocrit 27.1 L Mean Corpuscular Volume 95.1 Mean Corpuscular Hemoglobin 27.7 L Mean Corpuscular Hemoglobin Concent 29.2 L Red Cell Distribution Width 17.7 H Platelet Count 491 H Mean Platelet Volume 9.6 Neutrophils % 62.1 Lymphocytes % 20.5 Monocytes % 12.3 H Eosinophils % 3.1 Basophils % 0.3 Nucleated Red Blood Cells % 0.0 Neutrophils # 8.7 H Lymphocytes # 2.9 Monocytes # 1.7 H Eosinophils # 0.4 Basophils # 0.0 Nucleated Red Blood Cells # 0.0 Medications Medications Current Medications Miscellaneous Information 1 ea NOTE XX ; Start 01/16/17 at 23:30 Glucose (Glutose) 15 gm Q15M PRN PO DECREASED GLUCOSE; Start 01/16/17 at 23:30 Glucose (Glutose) 22.5 gm Q15M PRN PO DECREASED GLUCOSE; Start 01/16/17 at 23: 30 Dextrose (D50w Syringe) 25 ml Q15M PRN IV DECREASED GLUCOSE Last administered on 01/22/17t 20:54; Admin Dose 25 ML; Start 01/16/17 at 23:30 Dextrose (D50w Syringe) 50 ml Q15M PRN IV DECREASED GLUCOSE; Start 01/16/17 at 23:30 Glucagon (Glucagen) 1 mg Q15M PRN IM DECREASED GLUCOSE; Start 01/16/17 at 23:30 Glucose (Glutose) 15 gm Q15M PRN BUCCAL DECREASED GLUCOSE; Start 01/16/17 at 23 :30 Latanoprost (Xalatan) 1 drop HS BOTH EYES Last administered on 02/11/17 21:34; Admin Dose 1 DROP; Start 01/17/17 at 21:00 Ondansetron HCl (Zofran Inj) 4 mg Q6H PRN IV NAUSEA AND/OR VOMITING; Start at 00:30 Collagenase (Santyl) 1 applic DAILY TOP Last administered on 02/11/17 08:54; Admin Dose 1 APPLIC; Start 01/18/17 at 16:00 Collagenase (Santyl) 1 applic PRN PRN TOP WOUND CARE; Start 01/18/17 at 15:00 Enoxaparin Sodium (Lovenox) 30 mg DAILY SC Last administered on 02/11/17 08:52 ; Admin Dose 30 MG; Start 01/20/17 at 09:00 Bisacodyl (Dulcolax Supp) 10 mg BID PRN [place] CONSTIPATION; Start 01/20/17 at 17: 00 Ferrous Sulfate (Feosol Liquid Cup) 300 mg DAILY GTB Last administered on 08:48; Admin Dose 300 MG; Start 01/24/17 at 16:30 Acetaminophen (Tylenol Liquid) 650 mg Q6H PRN GTB PAIN AND OR ELEVATED TEMP Last administered on 02/02/17 15:08; Admin Dose 650 MG; Start 01/28/17 at 13:30 Metoprolol Tartrate (Lopressor) 50 mg BID GTB Last administered on 02/11/17 21: 34; Admin Dose 50 MG; Start 01/28/17 at 21:00 Neomycin/ Polymyxin/ Bacitracin (Neosporin Topical Oint) 1 applic DAILY TOP Last administered on 02/11/17 08:54; Admin Dose 1 APPLIC; Start 01/31/17 at 09: 00 Lansoprazole (Prevacid) 30 mg DAILY@06 GTB Last administered on 02/12/17 06:08 ; Admin Dose 30 MG; Start 02/01/17 at 06:00 Lorazepam (Ativan) 0.5 mg Q12H PRN IV AGITATION/ANXIETY Last administered on 12:47; Admin Dose 0.5 MG; Start 02/01/17 at 21:00 Mupirocin (Bactroban) 1 applic BID TOP Last administered on 02/11/17 21:34; Admin Dose 1 APPLIC; Start 02/03/17 at 21:00 Insulin Glargine (Lantus) 45 unit DAILY@08 SC Last administered on 02/11/17 08: 53; Admin Dose 45 UNIT; Start 02/07/17 at 08:00 Epoetin Raj (Epogen (Esrd)) 10,000 units MoWeFr@17 SC Last administered on 02/10 17:29; Admin Dose 10,000 UNITS; Start 02/07/17 at 17:00 Insulin Aspart (Novolog Insulin Pen) NOVOLOG *MODERATE* ALGORI... Q4 SC Last administered on 02/12/17 05:13; Admin Dose 2 UNIT; Start 02/07/17 at 13:00 Morphine Sulfate 2 mg 2 mg Q4H PRN IV PAIN; Start 02/08/17 at 12:00 Sodium Chloride (NS) 1,000 ml @ 40 mls/hr Q24H IV Last administered on 17:28; Admin Dose 40 MLS/HR; Start 02/09/17 at 13:00 Fluconazole (Diflucan) 100 mg DAILY GTB Last administered on 02/11/17 08:48; Admin Dose 100 MG; Start 02/11/17 at 09:00; Stop 02/20/17 at 08:59 Acetazolamide (Diamox) 250 mg BID GTB Last administered on 02/11/17 21:33; Admin Dose 250 MG; Start 02/11/17 at 12:00 DAMIR MARTINEZ MD Feb 12, 2017 08:11
[2017-02-12] MEDS: MUPIROCIN 2% 22 GM OINT TOP SCH ×2 (08:40→21:03)
[2017-02-12] MEDS: ACETAZOLAMIDE 250 MG TAB GTB SCH ×2 (08:40→21:03)
[2017-02-12] MEDS: FLUCONAZOLE 100 MG TAB GTB SCH (08:40)
[2017-02-12] MEDS: METOPROLOL 50 MG TAB GTB SCH ×2 (08:40→21:04)
[2017-02-12] MEDS: FERROUS SULFATE 60 MG/ML 5ML CUP GTB SCH (08:40)
[2017-02-12] MEDS: NEOMYC/POLYMYX/BACIT 30 GM OINT TOP SCH (08:41)
[2017-02-12] MEDS: ENOXAPARIN 30 MG/0.3 ML SYG SC SCH (08:43)
[2017-02-12] MEDS: INSULIN GLARGINE [LANtus] 3 ML PEN SC SCH (08:46)
[2017-02-12] MEDS: COLLAGENASE 30 GM TUBE TOP SCH (08:48)
[2017-02-12] MEDS: EPOETIN 10000 UNITS/1 ML INJ (ESRD) SC SCH (17:37)
--- NOTE | 2017-02-12 18:05 | PN ---
Date/Time of Note Date/Time of Note DATE: 02/12/17 TIME: 18:01 Assessment/Plan VTE Prophylaxis VTE Prophylaxis Intervention: LMWH Lines/Catheters IV Catheter Type (from Nrsg): PICC Line Central line still needed: Yes Urinary Cath still in place: Yes Reason Cath still needed: urinary retention, other (indicate) Assessment/Plan Assessment/Plan 02/12 wbc mild lower. hgb mild lower. no acute change. wt loss 3kg. 8/8wbc going up . ua alway dirty. will discuss again with ID. bactoban to be completed tomorrow. gained 7 KG weight in 1 night? 02/03 pt stable thru the weekend. completed abx and antifungal. nasal swab still + for mrsa. start the bactroban. d/c back to snf. f/u with renal for regular dialysis. f/u in future with surg after stabilized for lab myron. -meds changed higher dose of metoprolol. higher lantus, on fe q day. 01/31 failed video swallow study. no acute change. transfused 1 u prbc yesterday. prep for d/c on fri is cont to be stable. 01/30 swallow study at bedside- coughing keeping npo to get video swallow study , hgb low but was it draw from picc. 01/[address] at bed side. pt awake and alert. hgb back to 7.7, pulse 100 with increased b-danyel. 01/28 hgb jump 7.7 to 13. yeast in urine -diflucan started wbc lower, pulse jumped to 120's 01/27 elevated wbc lower hgb, ct brain neg 01/[address], feedings started , belly pain improved, scheduled for dialysis 01/23 hgb by picc low again. will repeat draw by arm and if hgb<8.0 will transfuse. gtube rescheduled to today. 01/22 hgb redraw and is higher 8.9. dialysis done today, awaiting gtube reinsertion. 01/21 surg reports ok for gtube replace. gi reports will plan to place in am. cr increased 1.3 to 1.4. choking on apple sauce yesterday. 01/20 dialysis today, low sugar overall bad day today. 01/19gi- awaiting consult for replacement of g-tube. pt not appear to be able to take po nutrition appropriately. GI- g-tube dislodged causing cellulitis of the abd wall. 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 -id following and pt on vanco/zosyn---now changed due to klebsiella to vanco/ merrem . vanco merrem to be completed on 01/25, then will be on ngt augmentin/ bactrim. due to elevated wbc iv abx cont. 01/28 wbc improved abx changed to gtube aug/wilfredo. -gi replace g-tube 01/23. feeding restarted 01/24. -swallow study taking place at bedside. coughing occurred with thin liq , hard to swallow the thicken but no cough. requesting video swallow test. failed. cont gtube feeding. renal- pt producing some urine. renal following and questioning if functionality has improved. fluid overloaded, being diuresed. dialysis on hold. epogen 3x/wk -uti now off merrem and starting diflucan -urine still with yeast. ID reports to cont diflucan for 3-5 days. pulm has a right lung infiltrate and mod effusion. pulm following tapped for 1 liter removed. abx changed. been stable dm- on sliding scale. no nutrition yet, sugar running low- lantis decreased. d5 running. since feeding has been restarted the accu checks to be expected to go up and will need to increase insulin appropriately. been stable on lantus 45 cv- h/o arrest, stent HI, cards following. b-danyel restarted. stable cholecystostomy- surg following and drain changed and growing klebsiella. completed abx. doing well. anemia--changing ppi to prevacid due to gtube. hgb slowly getting lower. on epo. cont to follow. cont fe tachycardia- improved on higher dose b-danyel via cards poor iv access. picc in place. nasal mrsa was +, day #9 bactroban. complete tomorrow. then will recheck the swab. . Exam/Review of Systems Vital Signs Vitals Vital Signs Date Time Temp Pulse Resp B/P Pulse Ox O2 Delivery O2 Flow Rate FiO2 02/12/17 16:26 91 02/12/17 15:33 98.6 18 110/52 96 02/12/17 01:14 21 Intake and Output 02/11/17 02/11/17 02/12/17 15:00 23:00 07:00 Intake Total 980 ml 1260 ml Output Total 600 ml 600 ml Balance 380 ml 660 ml Results Result Diagram: 02/12/17 0638 02/12/17 0638 Results 24 hrs Laboratory Tests Test 02/11/17 21:32 02/12/17 01:09 02/12/17 05:07 02/12/17 06:38 Bedside Glucose 99 104 153 White Blood Count 14.0 H Red Blood Count 2.85 L Hemoglobin 7.9 L Hematocrit 27.1 L Mean Corpuscular Volume 95.1 Mean Corpuscular Hemoglobin 27.7 L Mean Corpuscular Hemoglobin Concent 29.2 L Red Cell Distribution Width 17.7 H Platelet Count 491 H Mean Platelet Volume 9.6 Neutrophils % 62.1 Lymphocytes % 20.5 Monocytes % 12.3 H Eosinophils % 3.1 Basophils % 0.3 Nucleated Red Blood Cells % 0.0 Neutrophils # 8.7 H Lymphocytes # 2.9 Monocytes # 1.7 H Eosinophils # 0.4 Basophils # 0.0 Nucleated Red Blood Cells # 0.0 Sodium Level 139 Potassium Level 3.7 Chloride Level 91 L Carbon Dioxide Level 36 H Anion Gap 16 Blood Urea Nitrogen 62 H Creatinine 1.03 H Glucose Level 140 # Calcium Level 8.2 L Total Bilirubin 0.0 L Direct Bilirubin 0.00 Indirect Bilirubin 0.0 Aspartate Amino Transf (AST/SGOT) 32 Alanine Aminotransferase (ALT/SGPT) 30 Alkaline Phosphatase 246 H Total Protein 5.9 L Albumin 2.3 L Globulin 3.60 H Albumin/Globulin Ratio 0.63 Test 02/12/17 08:38 02/12/17 12:41 02/12/17 17:35 Bedside Glucose 197 183 121 Medications Medications Current Medications Miscellaneous Information 1 ea NOTE XX ; Start 01/16/17 at 23:30 Glucose (Glutose) 15 gm Q15M PRN PO DECREASED GLUCOSE; Start 01/16/17 at 23:30 Glucose (Glutose) 22.5 gm Q15M PRN PO DECREASED GLUCOSE; Start 01/16/17 at 23: 30 Dextrose (D50w Syringe) 25 ml Q15M PRN IV DECREASED GLUCOSE Last administered on 01/22/17 20:54; Admin Dose 25 ML; Start 01/16/17 at 23:30 Dextrose (D50w Syringe) 50 ml Q15M PRN IV DECREASED GLUCOSE; Start 01/16/17 at 23:30 Glucagon (Glucagen) 1 mg Q15M PRN IM DECREASED GLUCOSE; Start 01/16/17 at 23:30 Glucose (Glutose) 15 gm Q15M PRN BUCCAL DECREASED GLUCOSE; Start 01/16/17 at 23 :30 Latanoprost (Xalatan) 1 drop HS BOTH EYES Last administered on 02/11/17 21:34; Admin Dose 1 DROP; Start 01/17/17 at 21:00 Ondansetron HCl (Zofran Inj) 4 mg Q6H PRN IV NAUSEA AND/OR VOMITING; Start at 00:30 Collagenase (Santyl) 1 applic DAILY TOP Last administered on 02/12/17 08:48; Admin Dose 1 APPLIC; Start 01/18/17 at 16:00 Collagenase (Santyl) 1 applic PRN PRN TOP WOUND CARE; Start 01/18/17 at 15:00 Enoxaparin Sodium (Lovenox) 30 mg DAILY SC Last administered on 02/12/17 08:43 ; Admin Dose 30 MG; Start 01/20/17 at 09:00 Bisacodyl (Dulcolax Supp) 10 mg BID PRN PA CONSTIPATION; Start 01/20/17 at 17: 00 Ferrous Sulfate (Feosol Liquid Cup) 300 mg DAILY GTB Last administered on 08:40; Admin Dose 300 MG; Start 01/24/17 at 16:30 Acetaminophen (Tylenol Liquid) 650 mg Q6H PRN GTB PAIN AND OR ELEVATED TEMP Last administered on 02/02/17 15:08; Admin Dose 650 MG; Start 01/28/17 at 13:30 Metoprolol Tartrate (Lopressor) 50 mg BID GTB Last administered on 02/12/17 08: 40; Admin Dose 50 MG; Start 01/28/17 at 21:00 Neomycin/ Polymyxin/ Bacitracin (Neosporin Topical Oint) 1 applic DAILY TOP Last administered on 02/12/17 08:41; Admin Dose 1 APPLIC; Start 01/31/17 at 09: 00 Lansoprazole (Prevacid) 30 mg DAILY@06 GTB Last administered on 02/12/17 06:08 ; Admin Dose 30 MG; Start 02/01/17 at 06:00 Lorazepam (Ativan) 0.5 mg Q12H PRN IV AGITATION/ANXIETY Last administered on 12:47; Admin Dose 0.5 MG; Start 02/01/17 at 21:00 Mupirocin (Bactroban) 1 applic BID TOP Last administered on 02/12/17 08:40; Admin Dose 1 APPLIC; Start 02/03/17 at 21:00 Insulin Glargine (Lantus) 45 unit DAILY@08 SC Last administered on 02/12/17 08: 46; Admin Dose 45 UNIT; Start 02/07/17 at 08:00 Epoetin Raj (Epogen (Esrd)) 10,000 units MoWeFr@17 SC Last administered on 02/12 17:37; Admin Dose 10,000 UNITS; Start 02/07/17 at 17:00 Insulin Aspart (Novolog Insulin Pen) NOVOLOG *MODERATE* ALGORI... Q4 SC Last administered on 02/12/17 12:48; Admin Dose 4 UNIT; Start 02/07/17 at 13:00 Morphine Sulfate 2 mg 2 mg Q4H PRN IV PAIN; Start 02/08/17 at 12:00 Sodium Chloride (NS) 1,000 ml @ 40 mls/hr Q24H IV Last administered on 17:28; Admin Dose 40 MLS/HR; Start 02/09/17 at 13:00 Fluconazole (Diflucan) 100 mg DAILY GTB Last administered on 02/12/17 08:40; Admin Dose 100 MG; Start 02/11/17 at 09:00; Stop 02/20/17 at 08:59 Acetazolamide (Diamox) 250 mg BID GTB Last administered on 02/12/17 08:40; Admin Dose 250 MG; Start 02/11/17 at 12:00 SHAW SRINIVASAN MD Feb 12, 2017 18:05
[2017-02-12] MEDS: LATANOPROST 0.005% 2.5 ML OPH BOTH EYES SCH (21:02)
[2017-02-12 22:34] LABS: ABNORMAL PROTEIN BAND 1 0.4 g/dL (NONE DETECTED); ALBUMIN 1.6 g/dL (3.8-4.8)
[2017-02-12 22:34] LABS: ABNORMAL PROTEIN BAND 1 0.3 g/dL (NONE DETECTED); ALBUMIN 1.6 g/dL (3.8-4.8)
[2017-02-12] MEDS: SOD CHLORIDE 0.9% 1,000 ML IV SCH (23:40)
[2017-02-13] VITALS (12 sets, daily range): BP systolic 107–124; BP diastolic 54–74; PULSE 85–97; RESP 17–19
[2017-02-13] MEDS: INSULIN ASPART [NOVOLOG] 3 ML PEN SC SCH ×6 (01:00→21:08)
[2017-02-13] MEDS: LEVALBUTEROL (NEB) 0.31 MG/3 ML AMP HHN SCH ×4 (01:19→19:59)
[2017-02-13] MEDS: LANSOPRAZOLE 30 MG CAP GTB SCH (05:42)
[2017-02-13 07:15] LABS: ABNORMAL IP MESSAGE 1; BASOPHILS % 0.2 % (0.0-2.0); EOSINOPHILS # 0.4 10^3/ul (0.0-0.5); EOSINOPHILS % 2.3 % (0.0-7.0); HEMATOCRIT 26.5 % (37.0-47.0); HEMOGLOBIN 7.7 g/dl (12.0-16.0); LYMPHOCYTES # 3.1 10^3/ul (0.8-2.9); LYMPHOCYTES % 20.3 % (15.0-51.0); MEAN CORPUSCULAR HEMOGLOBIN 27.6 pg (29.0-33.0); MEAN CORPUSCULAR HGB CONC 29.1 g/dl (32.0-37.0); MEAN PLATELET VOLUME 9.5 fl (7.4-10.4); MONOCYTE # 1.7 10^3/ul (0.3-0.9); MONOCYTES % 10.9 % (0.0-11.0); NEUTROPHIL # 9.7 10^3/ul (1.6-7.5); NEUTROPHILS % 64.5 % (39.0-77.0); PLATELET COUNT 470 10^3/UL (140-415); RED BLOOD COUNT 2.79 10^6/ul (4.20-5.40); RED CELL DISTRIBUTION WIDTH 17.4 % (11.5-14.5); WHITE BLOOD COUNT 15.1 10^3/ul (4.8-10.8)
[2017-02-13 07:20] LABS: POSITIVE DIFF @See below
[2017-02-13 07:37] LABS: ALBUMIN 2.3 g/dl (3.3-4.9); ALBUMIN/GLOBULIN RATIO 0.63; CREATININE 1.05 mg/dl (0.44-1.00); POTASSIUM 3.7 mmol/L (3.5-5.1); TOTAL PROTEIN 5.9 g/dl (6.1-8.1)
[2017-02-13] MEDS: IPRATROPIUM (NEB) 0.5 MG/2.5 ML AMP HHN SCH ×3 (08:12→19:59)
[2017-02-13] MEDS: ACETAZOLAMIDE 250 MG TAB GTB SCH ×2 (08:31→20:59)
[2017-02-13] MEDS: FLUCONAZOLE 100 MG TAB GTB SCH (08:32)
[2017-02-13] MEDS: FERROUS SULFATE 60 MG/ML 5ML CUP GTB SCH (08:32)
[2017-02-13] MEDS: METOPROLOL 50 MG TAB GTB SCH ×2 (08:32→21:01)
[2017-02-13] MEDS: ENOXAPARIN 30 MG/0.3 ML SYG SC SCH (08:33)
[2017-02-13] MEDS: NEOMYC/POLYMYX/BACIT 30 GM OINT TOP SCH (08:41)
[2017-02-13] MEDS: MUPIROCIN 2% 22 GM OINT TOP SCH ×2 (08:41→20:59)
--- NOTE | 2017-02-13 08:41 | CONS ---
Date/Time of Note Date/Time of Note DATE: 02/13/17 TIME: 08:37 Assessment/Plan Assessment/Plan Chief Complaint/Hosp Course Impression: 1. Renal failure. Her renal function has improved.. Her urine output is adequate. She does have less flank edema. Her BUN is lower and serum creatinine is normal . I will start some intravenous fluids to see if the BUN decreases. Hopefully her kidneys will continue to improve and will not need further dialysis. She continues to be alkalotic on blood pH. I will start her on a course of acetazolamide ( Diamox ) to try and correct her alkalosis. She has not required dialysis for at least 2 weeks . 2. Multiple medical problems including insulin-dependent diabetes mellitus, atherosclerotic heart disease with acute NE and status post cardiac arrest with acute renal failure and anoxic encephalopathy, congestive heart failure, anemia of chronic disease, malnutrition, dysphagia requiring PEG placement , urinary tract infection , acute cholecystitis with drainage tube in place, peripheral vascular disease, history of her respiratory failure, history of acute cholecystitis with gallbladder drainage tube in place . She was admitted now because her gastric feeding tube dislodged and some of her feeding went into her abdominal cavity. She was thought to be septic at the time of admission. 3. she is having some bruising , will check PT/PTT . 4. high CO2 , will check ABG . the ABG shows that she has a metabolic alkalosis. I will start a course of acetazolamide to correct metabolic alkalosis . Plan: 1. next dialysis to be determined according to labs and urine output. 2. Restart Epogen. 3. On Acetozolamide ( Diamox ) 4. Will check labs in a.m. Problems: Consultation Date/Type/Reason Admit Date/Time Jan 16, 2017 at 22:45 Initial Consult Date 01/18/17 Type of Consultation: ID Referring Provider: SHAMA LOPEZ MD 24 HR Interval Summary Free Text/Dictation She is awake. She is having a breathing treatment. She denies any pain. She seems comfortable. Constitutional: no complaints Exam/Review of Systems Vital Signs Vitals Vital Signs Date Time Temp Pulse Resp B/P Pulse Ox O2 Delivery O2 Flow Rate FiO2 02/13/17 08:15 95 02/13/17 08:14 18 94 21 02/13/17 07:07 98.8 110/54 Intake and Output 8/03/2302/12/17 02/13/17 15:00 23:00 07:00 Intake Total 980 ml 1125 ml Output Total 755 ml 600 ml Balance 225 ml 525 ml Exam She has gangrenous changes of toes on both feet. Constitutional: alert, frail, obese, oriented Respiratory: clear to auscultation, diminished breath sounds Cardiovascular: edema, regular rate and rhythm Gastrointestinal: non-tender, soft Results Result Diagram: 02/13/17 0634 02/13/17 0634 Results 24 hrs Laboratory Tests Test 02/12/17 08:38 02/12/17 12:41 02/12/17 17:35 02/12/17 21:00 Bedside Glucose 197 183 121 114 Test 02/13/17 01:26 02/13/17 05:07 02/13/17 06:34 Bedside Glucose 131 159 White Blood Count 15.1 H Red Blood Count 2.79 L Hemoglobin 7.7 L Hematocrit 26.5 L Mean Corpuscular Volume 95.0 Mean Corpuscular Hemoglobin 27.6 L Mean Corpuscular Hemoglobin Concent 29.1 L Red Cell Distribution Width 17.4 H Platelet Count 470 H Mean Platelet Volume 9.5 Neutrophils % 64.5 Lymphocytes % 20.3 Monocytes % 10.9 Eosinophils % 2.3 Basophils % 0.2 Nucleated Red Blood Cells % 0.0 Neutrophils # 9.7 H Lymphocytes # 3.1 H Monocytes # 1.7 H Eosinophils # 0.4 Basophils # 0.0 Nucleated Red Blood Cells # 0.0 Sodium Level 140 Potassium Level 3.7 Chloride Level 96 L Carbon Dioxide Level 33 H Anion Gap 15 Blood Urea Nitrogen 59 H Creatinine 1.05 H Glucose Level 165 Calcium Level 8.0 L Total Bilirubin 0.0 L Direct Bilirubin 0.00 Indirect Bilirubin 0.0 Aspartate Amino Transf (AST/SGOT) 31 Alanine Aminotransferase (ALT/SGPT) 31 Alkaline Phosphatase 259 H Total Protein 5.9 L Albumin 2.3 L Globulin 3.60 H Albumin/Globulin Ratio 0.63 Medications Medications Current Medications Miscellaneous Information 1 ea NOTE XX ; Start 01/16/17 at 23:30 Glucose (Glutose) 15 gm Q15M PRN PO DECREASED GLUCOSE; Start 01/16/17 at 23:30 Glucose (Glutose) 22.5 gm Q15M PRN PO DECREASED GLUCOSE; Start 01/16/17 at 23: 30 Dextrose (D50w Syringe) 25 ml Q15M PRN IV DECREASED GLUCOSE Last administered on 01/22/17 20:54; Admin Dose 25 ML; Start 01/16/17 at 23:30 Dextrose (D50w Syringe) 50 ml Q15M PRN IV DECREASED GLUCOSE; Start 01/16/17 at 23:30 Glucagon (Glucagen) 1 mg Q15M PRN IM DECREASED GLUCOSE; Start 01/16/17 at 23:30 Glucose (Glutose) 15 gm Q15M PRN BUCCAL DECREASED GLUCOSE; Start 01/16/17 at 23 :30 Latanoprost (Xalatan) 1 drop HS BOTH EYES Last administered on 02/12/17 21:02; Admin Dose 1 DROP; Start 01/17/17 at 21:00 Ondansetron HCl (Zofran Inj) 4 mg Q6H PRN IV NAUSEA AND/OR VOMITING; Start at 00:30 Collagenase (Santyl) 1 applic DAILY TOP Last administered on 02/12/17 08:48; Admin Dose 1 APPLIC; Start 01/18/17 at 16:00 Collagenase (Santyl) 1 applic PRN PRN TOP WOUND CARE; Start 01/18/17 at 15:00 Enoxaparin Sodium (Lovenox) 30 mg DAILY SC Last administered on 02/12/17 08:43 ; Admin Dose 30 MG; Start 01/20/17 at 09:00 Bisacodyl (Dulcolax Supp) 10 mg BID PRN IN CONSTIPATION; Start 01/20/17 at 17: 00 Ferrous Sulfate (Feosol Liquid Cup) 300 mg DAILY GTB Last administered on 08:40; Admin Dose 300 MG; Start 01/24/17 at 16:30 Acetaminophen (Tylenol Liquid) 650 mg Q6H PRN GTB PAIN AND OR ELEVATED TEMP Last administered on 02/02/17 15:08; Admin Dose 650 MG; Start 01/28/17 at 13:30 Metoprolol Tartrate (Lopressor) 50 mg BID GTB Last administered on 02/12/17 21: 04; Admin Dose 50 MG; Start 01/28/17 at 21:00 Neomycin/ Polymyxin/ Bacitracin (Neosporin Topical Oint) 1 applic DAILY TOP Last administered on 02/12/17 08:41; Admin Dose 1 APPLIC; Start 01/31/17 at 09: 00 Lansoprazole (Prevacid) 30 mg DAILY@06 GTB Last administered on 02/13/17 05:42 ; Admin Dose 30 MG; Start 02/01/17 at 06:00 Lorazepam (Ativan) 0.5 mg Q12H PRN IV AGITATION/ANXIETY Last administered on 12:47; Admin Dose 0.5 MG; Start 02/01/17 at 21:00 Mupirocin (Bactroban) 1 applic BID TOP Last administered on 02/12/17 21:03; Admin Dose 1 APPLIC; Start 02/03/17 at 21:00 Insulin Glargine (Lantus) 45 unit DAILY@08 SC Last administered on 02/12/17 08: 46; Admin Dose 45 UNIT; Start 02/07/17 at 08:00 Epoetin Raj (Epogen (Esrd)) 10,000 units MoWeFr@17 SC Last administered on 02/12 17:37; Admin Dose 10,000 UNITS; Start 02/07/17 at 17:00 Insulin Aspart (Novolog Insulin Pen) NOVOLOG *MODERATE* ALGORI... Q4 SC Last administered on 02/13/17 05:21; Admin Dose 2 UNIT; Start 02/07/17 at 13:00 Morphine Sulfate 2 mg 2 mg Q4H PRN IV PAIN; Start 02/08/17 at 12:00 Sodium Chloride (NS) 1,000 ml @ 40 mls/hr Q24H IV Last administered on 17:28; Admin Dose 40 MLS/HR; Start 02/09/17 at 13:00 Fluconazole (Diflucan) 100 mg DAILY GTB Last administered on 02/12/17 08:40; Admin Dose 100 MG; Start 02/11/17 at 09:00; Stop 02/20/17 at 08:59 Acetazolamide (Diamox) 250 mg BID GTB Last administered on 02/12/17 21:03; Admin Dose 250 MG; Start 02/11/17 at 12:00 DAMIR MARTINEZ MD Feb 13, 2017 08:41
[2017-02-13] MEDS: COLLAGENASE 30 GM TUBE TOP SCH (08:42)
[2017-02-13] MEDS: INSULIN GLARGINE [LANtus] 3 ML PEN SC SCH (08:44)
[2017-02-13 09:23] LABS: IRON 24 ug/dl (35-150)
[2017-02-13 09:32] LABS: TOTAL IRON BINDING CAPACITY 160 ug/dl (241-421)
[2017-02-13 09:55] LABS: AADO2 Arterial 33.7 mmHg (7.0-24.0); Allen Test ACCEPTAB; Arterial Base Excess 5.2 mmol/L (-3.0-3); Arterial COHb 0.3 % (0.0-3.0); Arterial Fraction of Oxyhgb 93.8 % (93.0-99.0); Arterial HCO3 28.7 mmol/L (22.0-26.0); Arterial MetHb 0.3 % (0.0-1.5); Arterial Total Hemglobin 9.4 g/dl (12.0-18.0); MODE ROOM AIR
--- NOTE | 2017-02-13 13:14 | PN ---
Date/Time of Note Date/Time of Note DATE: 02/13/17 TIME: 13:10 Assessment/Plan VTE Prophylaxis VTE Prophylaxis Intervention: LMWH Lines/Catheters IV Catheter Type (from Nrsg): PICC Line Central line still needed: Yes Urinary Cath still in place: Yes Reason Cath still needed: other (indicate) Assessment/Plan Assessment/Plan 02/13 wbc approx same. hgb lower7.7, no acute change. nasal swab sent off yesterday. 02/12 wbc mild lower. hgb mild lower. no acute change. wt loss 3kg. 02/11wbc going up . ua alway dirty. will discuss again with ID. bactoban to be completed tomorrow. gained 7 KG weight in 1 night? 02/03 pt stable thru the weekend. completed abx and antifungal. nasal swab still + for mrsa. start the bactroban. d/c back to snf. f/u with renal for regular dialysis. f/u in future with surg after stabilized for lab myron. -meds changed higher dose of metoprolol. higher lantus, on fe q day. 01/31 failed video swallow study. no acute change. transfused 1 u prbc yesterday. prep for d/c on fri is cont to be stable. 01/30 swallow study at bedside- coughing keeping npo to get video swallow study , hgb low but was it draw from picc. 01/[address] at bed side. pt awake and alert. hgb back to 7.7, pulse 100 with increased b-danyel. 01/28 hgb jump 7.7 to 13. yeast in urine -diflucan started wbc lower, pulse jumped to 120's 01/27 elevated wbc lower hgb, ct brain neg 01/[address], feedings started , belly pain improved, scheduled for dialysis 01/23 hgb by picc low again. will repeat draw by arm and if hgb<8.0 will transfuse. gtube rescheduled to today. 01/22 hgb redraw and is higher 8.9. dialysis done today, awaiting gtube reinsertion. 01/21 surg reports ok for gtube replace. gi reports will plan to place in am. cr increased 1.3 to 1.4. choking on apple sauce yesterday. 01/20 dialysis today, low sugar overall bad day today. 01/19gi- awaiting consult for replacement of g-tube. pt not appear to be able to take po nutrition appropriately. GI- g-tube dislodged causing cellulitis of the abd wall. 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 -id following and pt on vanco/zosyn---now changed due to klebsiella to vanco/ merrem . vanco merrem to be completed on 01/25, then will be on ngt augmentin/ bactrim. due to elevated wbc iv abx cont. 01/28 wbc improved abx changed to gtube aug/wilfredo. -gi replace g-tube 01/23. feeding restarted 01/24. -swallow study taking place at bedside. coughing occurred with thin liq , hard to swallow the thicken but no cough. requesting video swallow test. failed. cont gtube feeding. renal- pt producing some urine. renal following and questioning if functionality has improved. fluid overloaded, being diuresed. dialysis on hold. epogen 3x/wk -uti now off merrem and starting diflucan -urine still with yeast. ID reports to cont diflucan for 3-5 days. pulm has a right lung infiltrate and mod effusion. pulm following tapped for 1 liter removed. abx changed. been stable dm- on sliding scale. no nutrition yet, sugar running low- lantis decreased. d5 running. since feeding has been restarted the accu checks to be expected to go up and will need to increase insulin appropriately. been stable on lantus 45 cv- h/o arrest, stent RI, cards following. b-danyel restarted. stable cholecystostomy- surg following and drain changed and growing klebsiella. completed abx. doing well. anemia--changing ppi to prevacid due to gtube. hgb slowly getting lower. on epo. cont to follow. cont fe. recheck hgb 7.7 today. redraw from arm and if hgb<8.0 then transfuse 1 uprbc tachycardia- improved on higher dose b-danyel via cards poor iv access. picc in place. nasal mrsa was +, day #9 bactroban. complete tomorrow. then will recheck the swab. results pending d/c planning. may be able to leave in next day . need to decide with ID if any treatment is needed for the wbc 15. renal is deciding on ivf's. appears no further dialysis is necessary. Exam/Review of Systems Vital Signs Vitals Vital Signs Date Time Temp Pulse Resp B/P Pulse Ox O2 Delivery O2 Flow Rate FiO2 02/13/17 12:05 85 02/13/17 11:11 99.3 18 107/57 96 02/13/17 08:14 21 Intake and Output 02/12/17 02/12/17 02/13/17 15:00 23:00 07:00 Intake Total 980 ml 1125 ml Output Total 755 ml 600 ml Balance 225 ml 525 ml Results Result Diagram: 02/13/17 0634 02/13/17 0634 Results 24 hrs Laboratory Tests Test 02/12/17 17:35 02/12/17 21:00 02/13/17 01:26 02/13/17 05:07 Bedside Glucose 121 114 131 159 Test 02/13/17 06:30 02/13/17 06:34 02/13/17 08:28 02/13/17 08:33 Iron Level 24 L Total Iron Binding Capacity 160 L Percent Iron Saturation 15 L White Blood Count 15.1 H Red Blood Count 2.79 L Hemoglobin 7.7 L Hematocrit 26.5 L Mean Corpuscular Volume 95.0 Mean Corpuscular Hemoglobin 27.6 L Mean Corpuscular Hemoglobin Concent 29.1 L Red Cell Distribution Width 17.4 H Platelet Count 470 H Mean Platelet Volume 9.5 Neutrophils % 64.5 Lymphocytes % 20.3 Monocytes % 10.9 Eosinophils % 2.3 Basophils % 0.2 Nucleated Red Blood Cells % 0.0 Neutrophils # 9.7 H Lymphocytes # 3.1 H Monocytes # 1.7 H Eosinophils # 0.4 Basophils # 0.0 Nucleated Red Blood Cells # 0.0 Sodium Level 140 Potassium Level 3.7 Chloride Level 96 L Carbon Dioxide Level 33 H Anion Gap 15 Blood Urea Nitrogen 59 H Creatinine 1.05 H Glucose Level 165 Calcium Level 8.0 L Total Bilirubin 0.0 L Direct Bilirubin 0.00 Indirect Bilirubin 0.0 Aspartate Amino Transf (AST/SGOT) 31 Alanine Aminotransferase (ALT/SGPT) 31 Alkaline Phosphatase 259 H Total Protein 5.9 L Albumin 2.3 L Globulin 3.60 H Albumin/Globulin Ratio 0.63 Bedside Glucose 194 Blood Gas Specimen Source Blood arterial Arterial Blood Date Drawn 02/13/2017 9:40:31 AM Arterial Blood pH (Temp corrected) 7.499 H Arterial Blood pCO2 (Temp correct) 37.7 Arterial Blood pO2 (Temp corrected) 70.9 L Arterial Blood HCO3 28.7 H Arterial Blood Base Excess 5.2 H Arterial Blood Oxygen Saturation 94.4 L Raz Test ACCEPTAB Arterial Blood Gas Puncture Site Right Radial Arterial Blood Carboxyhemoglobin 0.3 Arterial Blood Methemoglobin 0.3 Blood Gas A-a O2 Differential 33.7 H Oxyhemoglobin Percent 93.8 Total Hemoglobin 9.4 L Blood Gas Temperature 37.0 Blood Gas Modality ROOM AIR FiO2 21.0 Blood Gas Notified Whom JLD Blood Gas Notified Time 02/13/2017 9:55:11 AM Test 02/13/17 12:50 Bedside Glucose 221 H Medications Medications Current Medications Miscellaneous Information 1 ea NOTE XX ; Start 01/16/17 at 23:30 Glucose (Glutose) 15 gm Q15M PRN PO DECREASED GLUCOSE; Start 01/16/17 at 23:30 Glucose (Glutose) 22.5 gm Q15M PRN PO DECREASED GLUCOSE; Start 01/16/17 at 23: 30 Dextrose (D50w Syringe) 25 ml Q15M PRN IV DECREASED GLUCOSE Last administered on 01/22/17 20:54; Admin Dose 25 ML; Start 01/16/17 at 23:30 Dextrose (D50w Syringe) 50 ml Q15M PRN IV DECREASED GLUCOSE; Start 01/16/17 at 23:30 Glucagon (Glucagen) 1 mg Q15M PRN IM DECREASED GLUCOSE; Start 01/16/17 at 23:30 Glucose (Glutose) 15 gm Q15M PRN BUCCAL DECREASED GLUCOSE; Start 01/16/17 at 23 :30 Latanoprost (Xalatan) 1 drop HS BOTH EYES Last administered on 02/12/17 21:02; Admin Dose 1 DROP; Start 01/17/17 at 21:00 Ondansetron HCl (Zofran Inj) 4 mg Q6H PRN IV NAUSEA AND/OR VOMITING; Start at 00:30 Collagenase (Santyl) 1 applic DAILY TOP Last administered on 02/13/17 08:42; Admin Dose 1 APPLIC; Start 01/18/17 at 16:00 Collagenase (Santyl) 1 applic PRN PRN TOP WOUND CARE; Start 01/18/17 at 15:00 Enoxaparin Sodium (Lovenox) 30 mg DAILY SC Last administered on 02/13/17 08:33 ; Admin Dose 30 MG; Start 01/20/17 at 09:00 Bisacodyl (Dulcolax Supp) 10 mg BID PRN [place] CONSTIPATION; Start 01/20/17 at 17: 00 Ferrous Sulfate (Feosol Liquid Cup) 300 mg DAILY GTB Last administered on 08:32; Admin Dose 300 MG; Start 01/24/17 at 16:30 Acetaminophen (Tylenol Liquid) 650 mg Q6H PRN GTB PAIN AND OR ELEVATED TEMP Last administered on 02/02/17 15:08; Admin Dose 650 MG; Start 01/28/17 at 13:30 Metoprolol Tartrate (Lopressor) 50 mg BID GTB Last administered on 02/13/17 08 :32; Admin Dose 50 MG; Start 01/28/17 at 21:00 Neomycin/ Polymyxin/ Bacitracin (Neosporin Topical Oint) 1 applic DAILY TOP Last administered on 02/13/17 08:41; Admin Dose 1 APPLIC; Start 01/31/17 at 09: 00 Lansoprazole (Prevacid) 30 mg DAILY@06 GTB Last administered on 02/13/17 05:42 ; Admin Dose 30 MG; Start 02/01/17 at 06:00 Lorazepam (Ativan) 0.5 mg Q12H PRN IV AGITATION/ANXIETY Last administered on 12:47; Admin Dose 0.5 MG; Start 02/01/17 at 21:00 Mupirocin (Bactroban) 1 applic BID TOP Last administered on 02/13/17 08:41; Admin Dose 1 APPLIC; Start 02/03/17 at 21:00 Insulin Glargine (Lantus) 45 unit DAILY@08 SC Last administered on 02/13/17 08 :44; Admin Dose 45 UNIT; Start 02/07/17 at 08:00 Epoetin Raj (Epogen (Esrd)) 10,000 units MoWeFr@17 SC Last administered on 02/12 17:37; Admin Dose 10,000 UNITS; Start 02/07/17 at 17:00 Insulin Aspart (Novolog Insulin Pen) NOVOLOG *MODERATE* ALGORI... Q4 SC Last administered on 02/13/17 12:53; Admin Dose 6 UNIT; Start 02/07/17 at 13:00 Morphine Sulfate 2 mg 2 mg Q4H PRN IV PAIN; Start 02/08/17 at 12:00 Sodium Chloride (NS) 1,000 ml @ 40 mls/hr Q24H IV Last administered on 17:28; Admin Dose 40 MLS/HR; Start 02/09/17 at 13:00 Fluconazole (Diflucan) 100 mg DAILY GTB Last administered on 02/13/17 08:32; Admin Dose 100 MG; Start 02/11/17 at 09:00; Stop 02/20/17 at 08:59 Acetazolamide (Diamox) 250 mg BID GTB Last administered on 02/13/17 08:31; Admin Dose 250 MG; Start 02/11/17 at 12:00 SHAW SRINIVASAN MD Feb 13, 2017 13:13
[2017-02-13 14:49] LABS: BASOPHILS % 0.2 % (0.0-2.0); EOSINOPHILS # 0.3 10^3/ul (0.0-0.5); HEMATOCRIT 26.5 % (37.0-47.0); HEMOGLOBIN 7.8 g/dl (12.0-16.0); LYMPHOCYTES # 3.1 10^3/ul (0.8-2.9); LYMPHOCYTES % 21.7 % (15.0-51.0); MEAN CORPUSCULAR HGB CONC 29.4 g/dl (32.0-37.0); MEAN PLATELET VOLUME 9.4 fl (7.4-10.4); MONOCYTE # 1.5 10^3/ul (0.3-0.9); MONOCYTES % 10.6 % (0.0-11.0); NEUTROPHIL # 8.9 10^3/ul (1.6-7.5); NEUTROPHILS % 63.6 % (39.0-77.0); PLATELET COUNT 451 10^3/UL (140-415); RED BLOOD COUNT 2.79 10^6/ul (4.20-5.40); RED CELL DISTRIBUTION WIDTH 17.4 % (11.5-14.5); WHITE BLOOD COUNT 14.1 10^3/ul (4.8-10.8)
[2017-02-13] MEDS: LATANOPROST 0.005% 2.5 ML OPH BOTH EYES SCH (20:59)
[2017-02-13] MEDS: SOD CHLORIDE 0.9% 1,000 ML IV SCH (23:40)
[2017-02-14] VITALS: BP 122/56; PULSE 92; RESP 18
[2017-02-14 00:33] VITALS: PULSE 86
[2017-02-14] MEDS: INSULIN ASPART [NOVOLOG] 3 ML PEN SC SCH ×5 (01:22→17:36)
[2017-02-14] MEDS: LEVALBUTEROL (NEB) 0.31 MG/3 ML AMP HHN SCH ×3 (02:00→14:00)
[2017-02-14 04:00] VITALS: BP 108/52; PULSE 102; RESP 16
[2017-02-14] MEDS: LANSOPRAZOLE 30 MG CAP GTB SCH (05:40)
[2017-02-14 07:08] LABS: WHITE BLOOD COUNT 15.9 10^3/ul (4.8-10.8)
[2017-02-14 07:09] LABS: ABNORMAL IP MESSAGE 1; BASOPHIL # 0.1 10^3/ul (0.0-0.1); BASOPHILS % 0.3 % (0.0-2.0); EOSINOPHILS # 0.3 10^3/ul (0.0-0.5); EOSINOPHILS % 1.6 % (0.0-7.0); HEMATOCRIT 29.2 % (37.0-47.0); HEMOGLOBIN 8.7 g/dl (12.0-16.0); LYMPHOCYTES # 3.1 10^3/ul (0.8-2.9); LYMPHOCYTES % 19.6 % (15.0-51.0); MEAN CORPUSCULAR HEMOGLOBIN 27.9 pg (29.0-33.0); MEAN CORPUSCULAR HGB CONC 29.8 g/dl (32.0-37.0); MEAN CORPUSCULAR VOLUME 93.6 fl (82.0-101.0); MEAN PLATELET VOLUME 9.6 fl (7.4-10.4); MONOCYTE # 1.6 10^3/ul (0.3-0.9); MONOCYTES % 10.1 % (0.0-11.0); NEUTROPHIL # 10.6 10^3/ul (1.6-7.5); NEUTROPHILS % 67.1 % (39.0-77.0); PLATELET COUNT 425 10^3/UL (140-415); RED BLOOD COUNT 3.12 10^6/ul (4.20-5.40); RED CELL DISTRIBUTION WIDTH 17.2 % (11.5-14.5)
[2017-02-14 07:16] LABS: POSITIVE DIFF @See below
[2017-02-14 07:33] VITALS: BP 100/55; RESP 18
[2017-02-14 07:49] LABS: ALBUMIN 2.3 g/dl (3.3-4.9); ALBUMIN/GLOBULIN RATIO 0.62; CREATININE 0.98 mg/dl (0.44-1.00); POTASSIUM 3.5 mmol/L (3.5-5.1)
[2017-02-14] MEDS: IPRATROPIUM (NEB) 0.5 MG/2.5 ML AMP HHN SCH ×2 (08:00→14:00)
[2017-02-14] MEDS ORDERED: POTASSIUM CHLORIDE 20 MEQ POWDER FOR ORAL SOLN GTB ONE (08:30)
--- NOTE | 2017-02-14 08:39 | CONS ---
Date/Time of Note Date/Time of Note DATE: 02/14/17 TIME: 08:32 Assessment/Plan Assessment/Plan Chief Complaint/Hosp Course Impression: 1. Renal failure. Her renal function has improved.. Her urine output is adequate. She does have less flank edema. Her BUN is lower and serum creatinine is normal . I am going to stop Diamox and IV fluids . She has not required dialysis for at least 2 weeks . 2. Multiple medical problems including insulin-dependent diabetes mellitus, atherosclerotic heart disease with acute DE and status post cardiac arrest with acute renal failure and anoxic encephalopathy, congestive heart failure, anemia of chronic disease, malnutrition, dysphagia requiring PEG placement , urinary tract infection , acute cholecystitis with drainage tube in place, peripheral vascular disease, history of her respiratory failure, history of acute cholecystitis with gallbladder drainage tube in place . She was admitted now because her gastric feeding tube dislodged and some of her feeding went into her abdominal cavity. She was thought to be septic at the time of admission. 3. she is having some bruising , will check PT/PTT . 4. high CO2 , this is lower and arterial blood Ph is correcting . I will stop IV fluids and Diamox . Plan: 1. Renal function improved . No Dialysis needed . 2. Continue Epogen 4. Will check labs in a.m. Problems: Consultation Date/Type/Reason Admit Date/Time Jan 16, 2017 at 22:45 Initial Consult Date 01/18/17 Type of Consultation: ID Referring Provider: SHAMA LOPEZ MD 24 HR Interval Summary Free Text/Dictation She is sleeping but rouses easily to verbal stimuli . She says that she feels good . Constitutional: no complaints Exam/Review of Systems Vital Signs Vitals Vital Signs Date Time Temp Pulse Resp B/P Pulse Ox O2 Delivery O2 Flow Rate FiO2 02/14/17 08:08 95 21 02/14/17 07:33 100.5 104 18 100/55 02/14/17 04:00 Room Air Intake and Output 02/13/17 02/13/17 02/14/17 15:00 23:00 07:00 Intake Total 980 ml 1495 ml Output Total 550 ml 650 ml Balance 430 ml 845 ml Exam She has gangrenous toes on both feet . Constitutional: alert, frail, obese Respiratory: clear to auscultation, diminished breath sounds Cardiovascular: edema, regular rate and rhythm Gastrointestinal: non-tender, soft Results Result Diagram: 02/14/17 0618 02/14/17 0618 Results 24 hrs Laboratory Tests Test 02/13/17 08:33 02/13/17 12:50 02/13/17 14:23 02/13/17 17:55 Blood Gas Specimen Source Blood arterial Arterial Blood Date Drawn 02/13/2017 9:40:31 AM Arterial Blood pH (Temp corrected) 7.499 H Arterial Blood pCO2 (Temp correct) 37.7 Arterial Blood pO2 (Temp corrected) 70.9 L Arterial Blood HCO3 28.7 H Arterial Blood Base Excess 5.2 H Arterial Blood Oxygen Saturation 94.4 L Raz Test ACCEPTAB Arterial Blood Gas Puncture Site Right Radial Arterial Blood Carboxyhemoglobin 0.3 Arterial Blood Methemoglobin 0.3 Blood Gas A-a O2 Differential 33.7 H Oxyhemoglobin Percent 93.8 Total Hemoglobin 9.4 L Blood Gas Temperature 37.0 Blood Gas Modality ROOM AIR FiO2 21.0 Blood Gas Notified Whom JLD Blood Gas Notified Time 02/13/2017 9:55:11 AM Bedside Glucose 221 H 190 White Blood Count 14.1 H Red Blood Count 2.79 L Hemoglobin 7.8 L Hematocrit 26.5 L Mean Corpuscular Volume 95.0 Mean Corpuscular Hemoglobin 28.0 L Mean Corpuscular Hemoglobin Concent 29.4 L Red Cell Distribution Width 17.4 H Platelet Count 451 H Mean Platelet Volume 9.4 Neutrophils % 63.6 Lymphocytes % 21.7 Monocytes % 10.6 Eosinophils % 2.0 Basophils % 0.2 Nucleated Red Blood Cells % 0.0 Neutrophils # 8.9 H Lymphocytes # 3.1 H Monocytes # 1.5 H Eosinophils # 0.3 Basophils # 0.0 Nucleated Red Blood Cells # 0.0 Test 02/13/17 20:58 02/14/17 01:16 02/14/17 04:48 02/14/17 06:18 Bedside Glucose 184 156 179 White Blood Count 15.9 H Red Blood Count 3.12 L Hemoglobin 8.7 L Hematocrit 29.2 L Mean Corpuscular Volume 93.6 Mean Corpuscular Hemoglobin 27.9 L Mean Corpuscular Hemoglobin Concent 29.8 L Red Cell Distribution Width 17.2 H Platelet Count 425 H Mean Platelet Volume 9.6 Neutrophils % 67.1 Lymphocytes % 19.6 Monocytes % 10.1 Eosinophils % 1.6 Basophils % 0.3 Nucleated Red Blood Cells % 0.0 Neutrophils # 10.6 H Lymphocytes # 3.1 H Monocytes # 1.6 H Eosinophils # 0.3 Basophils # 0.1 Nucleated Red Blood Cells # 0.0 Sodium Level 139 Potassium Level 3.5 Chloride Level 95 L Carbon Dioxide Level 33 H Anion Gap 15 Blood Urea Nitrogen 59 H Creatinine 0.98 Glucose Level 164 Calcium Level 8.0 L Total Bilirubin 0.0 L Direct Bilirubin 0.00 Indirect Bilirubin 0.0 Aspartate Amino Transf (AST/SGOT) 29 Alanine Aminotransferase (ALT/SGPT) 28 Alkaline Phosphatase 257 H Total Protein 6.0 L Albumin 2.3 L Globulin 3.70 H Albumin/Globulin Ratio 0.62 Medications Medications Current Medications Miscellaneous Information 1 ea NOTE XX ; Start 01/16/17 at 23:30 Glucose (Glutose) 15 gm Q15M PRN PO DECREASED GLUCOSE; Start 01/16/17 at 23:30 Glucose (Glutose) 22.5 gm Q15M PRN PO DECREASED GLUCOSE; Start 01/16/17 at 23: 30 Dextrose (D50w Syringe) 25 ml Q15M PRN IV DECREASED GLUCOSE Last administered on 01/22/17 20:54; Admin Dose 25 ML; Start 01/16/17 at 23:30 Dextrose (D50w Syringe) 50 ml Q15M PRN IV DECREASED GLUCOSE; Start 01/16/17 at 23:30 Glucagon (Glucagen) 1 mg Q15M PRN IM DECREASED GLUCOSE; Start 01/16/17 at 23:30 Glucose (Glutose) 15 gm Q15M PRN BUCCAL DECREASED GLUCOSE; Start 01/16/17 at 23 :30 Latanoprost (Xalatan) 1 drop HS BOTH EYES Last administered on 02/13/17 20:59 ; Admin Dose 1 DROP; Start 01/17/17 at 21:00 Ondansetron HCl (Zofran Inj) 4 mg Q6H PRN IV NAUSEA AND/OR VOMITING; Start at 00:30 Collagenase (Santyl) 1 applic DAILY TOP Last administered on 02/13/17 08:42; Admin Dose 1 APPLIC; Start 01/18/17 at 16:00 Collagenase (Santyl) 1 applic PRN PRN TOP WOUND CARE; Start 01/18/17 at 15:00 Enoxaparin Sodium (Lovenox) 30 mg DAILY SC Last administered on 02/13/17 08:33 ; Admin Dose 30 MG; Start 01/20/17 at 09:00 Bisacodyl (Dulcolax Supp) 10 mg BID PRN [place] CONSTIPATION; Start 01/20/17 at 17: 00 Ferrous Sulfate (Feosol Liquid Cup) 300 mg DAILY GTB Last administered on 08:32; Admin Dose 300 MG; Start 01/24/17 at 16:30 Acetaminophen (Tylenol Liquid) 650 mg Q6H PRN GTB PAIN AND OR ELEVATED TEMP Last administered on 02/02/17 15:08; Admin Dose 650 MG; Start 01/28/17 at 13:30 Metoprolol Tartrate (Lopressor) 50 mg BID GTB Last administered on 02/13/17 21 :01; Admin Dose 50 MG; Start 01/28/17 at 21:00 Neomycin/ Polymyxin/ Bacitracin (Neosporin Topical Oint) 1 applic DAILY TOP Last administered on 02/13/17 08:41; Admin Dose 1 APPLIC; Start 01/31/17 at 09: 00 Lansoprazole (Prevacid) 30 mg DAILY@06 GTB Last administered on 02/14/17 05:40 ; Admin Dose 30 MG; Start 02/01/17 at 06:00 Lorazepam (Ativan) 0.5 mg Q12H PRN IV AGITATION/ANXIETY Last administered on 12:47; Admin Dose 0.5 MG; Start 02/01/17 at 21:00 Mupirocin (Bactroban) 1 applic BID TOP Last administered on 02/13/17 20:59; Admin Dose 1 APPLIC; Start 02/03/17 at 21:00 Insulin Glargine (Lantus) 45 unit DAILY@08 SC Last administered on 02/13/17 08 :44; Admin Dose 45 UNIT; Start 02/07/17 at 08:00 Epoetin Raj (Epogen (Esrd)) 10,000 units MoWeFr@17 SC Last administered on 02/12 17:37; Admin Dose 10,000 UNITS; Start 02/07/17 at 17:00 Insulin Aspart (Novolog Insulin Pen) NOVOLOG *MODERATE* ALGORI... Q4 SC Last administered on 02/14/17 04:58; Admin Dose 2 UNIT; Start 02/07/17 at 13:00 Morphine Sulfate 2 mg 2 mg Q4H PRN IV PAIN; Start 02/08/17 at 12:00 Sodium Chloride (NS) 1,000 ml @ 40 mls/hr Q24H IV Last administered on 17:28; Admin Dose 40 MLS/HR; Start 02/09/17 at 13:00 Fluconazole (Diflucan) 100 mg DAILY GTB Last administered on 02/13/17 08:32; Admin Dose 100 MG; Start 02/11/17 at 09:00; Stop 02/20/17 at 08:59 Acetazolamide (Diamox) 250 mg BID GTB Last administered on 02/13/17 20:59; Admin Dose 250 MG; Start 02/11/17 at 12:00 DAMIR MARTINEZ MD Feb 14, 2017 08:39
[2017-02-14] MEDS: INSULIN GLARGINE [LANtus] 3 ML PEN SC SCH (08:55)
[2017-02-14] MEDS: FLUCONAZOLE 100 MG TAB GTB SCH (08:56)
[2017-02-14] MEDS: FERROUS SULFATE 60 MG/ML 5ML CUP GTB SCH (08:56)
[2017-02-14] MEDS: METOPROLOL 50 MG TAB GTB SCH (08:57)
[2017-02-14] MEDS: ENOXAPARIN 30 MG/0.3 ML SYG SC SCH (09:00)
[2017-02-14] MEDS: NEOMYC/POLYMYX/BACIT 30 GM OINT TOP SCH (09:07)
[2017-02-14] MEDS: MUPIROCIN 2% 22 GM OINT TOP SCH (09:07)
[2017-02-14] MEDS: COLLAGENASE 30 GM TUBE TOP SCH (09:07)
[2017-02-14 11:56] VITALS: BP 116/56; RESP 18
--- NOTE | 2017-02-14 14:17 | DS ---
Date/Time of Note Date/Time of Note DATE: 02/14/17 TIME: 14:10 Discharge Summary Admission/Discharge Info Admit Date/Time Jan 16, 2017 at 22:45 Discharge Date/Time Discharge Diagnosis cellulitis abd wall. Patient Condition: Good Hospital Course 02/14 pt neg mrsa of nasal. off isolation. not requiring dialysis. respir stable. - cont with diflucan. ready for transfer to snf. 02/13 wbc approx same. hgb lower7.7, no acute change. nasal swab sent off yesterday. 02/12 wbc mild lower. hgb mild lower. no acute change. wt loss 3kg. 02/11wbc going up . ua alway dirty. will discuss again with ID. bactoban to be completed tomorrow. gained 7 KG weight in 1 night? 02/03 pt stable thru the weekend. completed abx and antifungal. nasal swab still + for mrsa. start the bactroban. d/c back to snf. f/u with renal for regular dialysis. f/u in future with surg after stabilized for lab myron. -meds changed higher dose of metoprolol. higher lantus, on fe q day. 01/31 failed video swallow study. no acute change. transfused 1 u prbc yesterday. prep for d/c on fri is cont to be stable. 01/30 swallow study at bedside- coughing keeping npo to get video swallow study , hgb low but was it draw from picc. 01/[address] at bed side. pt awake and alert. hgb back to 7.7, pulse 100 with increased b-danyel. 01/28 hgb jump 7.7 to 13. yeast in urine -diflucan started wbc lower, pulse jumped to 120's 01/27 elevated wbc lower hgb, ct brain neg 01/[address], feedings started , belly pain improved, scheduled for dialysis 01/23 hgb by picc low again. will repeat draw by arm and if hgb<8.0 will transfuse. gtube rescheduled to today. 01/22 hgb redraw and is higher 8.9. dialysis done today, awaiting gtube reinsertion. 01/21 surg reports ok for gtube replace. gi reports will plan to place in am. cr increased 1.3 to 1.4. choking on apple sauce yesterday. 01/20 dialysis today, low sugar overall bad day today. 01/19gi- awaiting consult for replacement of g-tube. pt not appear to be able to take po nutrition appropriately. GI- g-tube dislodged causing cellulitis of the abd wall. 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 -id following and pt on vanco/zosyn---now changed due to klebsiella to vanco/ merrem . vanco merrem to be completed on 01/25, then will be on ngt augmentin/ bactrim. due to elevated wbc iv abx cont. 01/28 wbc improved abx changed to gtube aug/wilfredo. -gi replace g-tube 01/23. feeding restarted 01/24. -swallow study taking place at bedside. coughing occurred with thin liq , hard to swallow the thicken but no cough. requesting video swallow test. failed. cont gtube feeding. renal- pt producing some urine. renal following and questioning if functionality has improved. fluid overloaded, being diuresed. dialysis on hold. epogen 3x/wk -uti now off merrem and starting diflucan -urine still with yeast. ID reports to cont diflucan for 3-5 days. pulm has a right lung infiltrate and mod effusion. pulm following tapped for 1 liter removed. abx changed. been stable dm- on sliding scale. no nutrition yet, sugar running low- lantis decreased. d5 running. since feeding has been restarted the accu checks to be expected to go up and will need to increase insulin appropriately. been stable on lantus 45 cv- h/o arrest, stent AL, cards following. b-danyel restarted. stable cholecystostomy- surg following and drain changed and growing klebsiella. completed abx. doing well. anemia--changing ppi to prevacid due to gtube. hgb slowly getting lower. on epo. cont to follow. cont fe. recheck hgb 7.7 today. redraw from arm and if hgb<8.0 then transfuse 1 uprbc tachycardia- improved on higher dose b-danyel via cards poor iv access. picc in place. nasal mrsa was +, day #9 bactroban. complete tomorrow. then will recheck the swab. results pending d/c planning. may be d/c today. ID reporst if stable although wbc 15 may d/c and not need further abx. pt to cont 5-7 days of diflucan for urine. renal no further dialysis is necessary. Home Meds Active Scripts Insulin Glargine* (Lantus*) 100 Unit/Ml Soln, 36 UNIT SC QHS, #1 VIAL Prov:SHAW SRINIVASAN MD 01/17/17 Latanoprost (Latanoprost) 2.5 Ml Drops, 1 DROP BOTH EYES QHS, #1 BOTTLE Prov:SHAW SRINIVASAN MD 01/17/17 Dorzolamide/Timolol* (Dorzolamide/Timolol*) 10 Ml Drops, 1 DROP BOTH EYES BID, # 1 EA Prov:SHAW SRINIVASAN MD 01/17/17 Reported Medications Zinc Sulfate* (Zinc Sulfate*) 220 Mg Tablet, 220 MG GTB DAILY, TAB 01/16/17 Levalbuterol Hcl* (Levalbuterol Hcl*) 1.25 Mg/3 Ml Vial.neb, 1.25 MG INHALATION Q6H Y for WHEEZING AND SOB, VIAL 01/16/17 Ascorbic Acid* (Vitamin C*) 500 Mg Capsule.sa, 500 MG GTB DAILY, CAP 01/16/17 Acetaminophen* (Tylenol*) 500 Mg Tab, 1000 MG GTB Q4H Y for PAIN 4-6/10, TAB 01/16/17 Acetaminophen* (Tylenol*) 325 Mg Tablet, 650 MG GTB Q4H Y for MILD PAIN LEVEL 1- 3, TAB FOR FEVER 100 AND ABOVE AND PAIN MGMT PRIOR TO TX 01/16/17 Metoclopramide* (Reglan*) 5 Mg Tablet, 5 MG GTB AC MEALS, TAB Q6H 01/16/17 Clopidogrel Bisulfate (Clopidogrel) 75 Mg Tablet, 75 MG GTB DAILY, #30 TAB 01/16/17 Multivitamin with Minerals (Multivitamins with Minerals) 1 Each Tablet, 1 EACH GTB DAILY, TAB 01/16/17 Magnesium Hydroxide* (Milk Of Magnesia*) 400 Mg/5 Ml Oral.susp, 30 ML GTB as needed Y for prn, ML 01/16/17 Midodrine* (Midodrine*) 5 Mg Tablet, 5 MG GTB TID, TAB TAKE TUE,[place],SAT-3AM,11AM,3PM 01/16/17 Midodrine* (Midodrine*) 5 Mg Tablet, 5 MG GTB TID, TAB TAKE EVERY SUN,MON,WED,FRI-8AM,11AM,AND 4PM 01/16/17 Metoprolol Tartrate* (Lopressor*) 25 Mg Tablet, 25 MG GTB BID, #60 TAB HOLD IF SBP<110 OR HR<60 01/16/17 Escitalopram Oxalate* (Lexapro*) 10 Mg Tablet, 10 MG GTB DAILY, #30 TAB 01/16/17 Lactulose* (Lactulose*) 10 Gm/15 Ml Solution, 30 ML GTB BID, ML 01/16/17 Na Phos,M-B/Na Phos,Di-Ba (Fleet Enema Extra) 230 Ml Enema, 230 ML RC Q2D, ENEMA 01/16/17 Bisacodyl* (Bisacodyl*) 10 Mg Supp, 10 MG OK DAILY Y for PRN, SUPP 01/16/17 Mluuqc-Zdrgawmt-Gqukjsl* (Thais GARCIA* 12,000) 12,000 L-38,000-60,000 Unit Capsule., 3 CAP GTB WITH MEALS, CAP Q6H 01/16/17 Cranberry Extract (Cranberry) 425 Mg Capsule, 425 MG GTB DAILY, CAP 01/16/17 Docusate Sodium* (Docusate Sodium*) 100 Mg Capsule, 200 MG GTB QHS, #30 CAP 01/16/17 Calcium Carbonate (NATURAL CALCIUM) 500 Mg Tablet, 500 MG GTB TID, TAB CHEWABLE 01/16/17 Aspirin* (Aspirin* Chew) 81 Mg Tab.chew, 81 MG GTB DAILY, TAB.CHEW 01/16/17 Dextran/Hypromellose/Glycerin (Artificial Tears Drops) 15 Ml Drops, 2 DROP BOTH EYES QID, EA 01/16/17 Alprazolam* (Alprazolam*) 0.25 Mg Tablet, 0.25 MG GTB PRN Y for ANXIETY, TAB 01/16/17 Lactobacillus Acidophilus* (Lactinex*) 1 Tab Chew, 1 TAB GTB TID, TAB 01/16/17 Primary Care Provider Oscar Hernandes M.D. Pending Labs Laboratory Tests Test 02/13/17 14:23 02/13/17 17:55 02/13/17 20:58 02/14/17 01:16 White Blood Count 14.110^3/ul (4.8-10.8) Red Blood Count 2.7910^6/ul (4.20-5.40) Hemoglobin 7.8g/dl (12.0-16.0) Hematocrit 26.5% (37.0-47.0) Mean Corpuscular Volume 95.0fl (82.0-101.0) Mean Corpuscular Hemoglobin 28.0pg (29.0-33.0) Mean Corpuscular Hemoglobin Concent 29.4g/dl (32.0-37.0) Red Cell Distribution Width 17.4% (11.5-14.5) Platelet Count 48141^3/UL (140-415) Mean Platelet Volume 9.4fl (7.4-10.4) Neutrophils % 63.6% (39.0-77.0) Lymphocytes % 21.7% (15.0-51.0) Monocytes % 10.6% (0.0-11.0) Eosinophils % 2.0% (0.0-7.0) Basophils % 0.2% (0.0-2.0) Nucleated Red Blood Cells % 0.0/100WBC (0.0-0.0) Neutrophils # 8.910^3/ul (1.6-7.5) Lymphocytes # 3.110^3/ul (0.8-2.9) Monocytes # 1.510^3/ul (0.3-0.9) Eosinophils # 0.310^3/ul (0.0-0.5) Basophils # 0.010^3/ul (0.0-0.1) Nucleated Red Blood Cells # 0.010^3/ul (0.0-0.0) Bedside Glucose 190mg/dL (70-220) 184mg/dL (70-220) 156mg/dL (70-220) Test 02/14/17 04:48 02/14/17 06:18 02/14/17 08:31 02/14/17 12:33 Bedside Glucose 179mg/dL (70-220) 208mg/dL (70-220) 234mg/dL (70-220) White Blood Count 15.910^3/ul (4.8-10.8) Red Blood Count 3.1210^6/ul (4.20-5.40) Hemoglobin 8.7g/dl (12.0-16.0) Hematocrit 29.2% (37.0-47.0) Mean Corpuscular Volume 93.6fl (82.0-101.0) Mean Corpuscular Hemoglobin 27.9pg (29.0-33.0) Mean Corpuscular Hemoglobin Concent 29.8g/dl (32.0-37.0) Red Cell Distribution Width 17.2% (11.5-14.5) Platelet Count 31513^3/UL (140-415) Mean Platelet Volume 9.6fl (7.4-10.4) Neutrophils % 67.1% (39.0-77.0) Lymphocytes % 19.6% (15.0-51.0) Monocytes % 10.1% (0.0-11.0) Eosinophils % 1.6% (0.0-7.0) Basophils % 0.3% (0.0-2.0) Nucleated Red Blood Cells % 0.0/100WBC (0.0-0.0) Neutrophils # 10.610^3/ul (1.6-7.5) Lymphocytes # 3.110^3/ul (0.8-2.9) Monocytes # 1.610^3/ul (0.3-0.9) Eosinophils # 0.310^3/ul (0.0-0.5) Basophils # 0.110^3/ul (0.0-0.1) Nucleated Red Blood Cells # 0.010^3/ul (0.0-0.0) Sodium Level 139mmol/L (135-144) Potassium Level 3.5mmol/L (3.5-5.1) Chloride Level 95mmol/L (97-110) Carbon Dioxide Level 33mmol/L (21-31) Anion Gap 15 (8-16) Blood Urea Nitrogen 59mg/dl (7-20) Creatinine 0.98mg/dl (0.44-1.00) Glucose Level 164mg/dl (70-220) Calcium Level 8.0mg/dl (8.4-10.2) Total Bilirubin 0.0mg/dl (0.2-1.3) Direct Bilirubin 0.00mg/dl (0.00-0.20) Indirect Bilirubin 0.0mg/dl (0-1.1) Aspartate Amino Transf (AST/SGOT) 29IU/L (15-46) Alanine Aminotransferase (ALT/SGPT) 28IU/L (13-69) Alkaline Phosphatase 257IU/L (42-121) Total Protein 6.0g/dl (6.1-8.1) Albumin 2.3g/dl (3.3-4.9) Globulin 3.70g/dl (1.3-3.2) Albumin/Globulin Ratio 0.62 SHAW SRINIVASAN MD Feb 14, 2017 14:17
[2017-02-14 14:57] VITALS: BP 129/58; RESP 19
[2017-02-14] MEDS: EPOETIN 10000 UNITS/1 ML INJ (ESRD) SC SCH (17:42)
== END 2017-02-14 18:26 | DRG 981 ==
LOC: E/R 18:57 → TEL 19:37 → OBSVTOIN 22:45 → TEL 01-17 16:32
PROVIDERS: ADMIT Internal Medicine; ATTEND Internal Medicine
PROC: 0FP430Z Removal of Drainage Device from Gallbladder, Percutaneous Approach (ICD-10-PCS; principal; 2017-01-18)
PROC: 0W993ZZ Drainage of Right Pleural Cavity, Percutaneous Approach (ICD-10-PCS; 2017-01-18)
PROC: 0FH Hepatobiliary System and Pancreas, Insertion (ICD-10-PCS; 2017-01-18)
PROC: 02HV33Z Insertion of Infusion Device into Superior Vena Cava, Percutaneous Approach (ICD-10-PCS; 2017-01-19)
PROC: 5A1D60Z (ICD-10-PCS; 2017-01-19)
PROC: 0DH63UZ Insertion of Feeding Device into Stomach, Percutaneous Approach (ICD-10-PCS; 2017-01-23)
PROC: 30233N1 Transfusion of Nonautologous Red Blood Cells into Peripheral Vein, Percutaneous Approach (ICD-10-PCS; 2017-01-30)
DX: T85.79XA Infection and inflammatory reaction due to other internal prosthetic devices, implants and grafts, initial encounter (principal); A41.9 Sepsis, unspecified organism; J69.0 Pneumonitis due to inhalation of food and vomit; N17.0 Acute kidney failure with tubular necrosis; R65.20 Severe sepsis without septic shock; E43 Unspecified severe protein-calorie malnutrition; L89.152 Pressure ulcer of sacral region, stage 2; J90 Pleural effusion, not elsewhere classified; I96 Gangrene, not elsewhere classified; N18.6 End stage renal disease; T79.7XXA Traumatic subcutaneous emphysema, initial encounter; K94.22 Gastrostomy infection; K94.23 Gastrostomy malfunction; Z43.1 Encounter for attention to gastrostomy; L03.311 Cellulitis of abdominal wall; N39.0 Urinary tract infection, site not specified; B37.49 Other urogenital candidiasis; L89.153 Pressure ulcer of sacral region, stage 3; D63.1 Anemia in chronic kidney disease; K81.9 Cholecystitis, unspecified; Z95.1 Presence of aortocoronary bypass graft; Z99.2 Dependence on renal dialysis; Z95.5 Presence of coronary angioplasty implant and graft; L89.620 Pressure ulcer of left heel, unstageable; E11.9 Type 2 diabetes mellitus without complications; I25.2 Old myocardial infarction; R13.10 Dysphagia, unspecified; Z68.38 Body mass index [BMI] 38.0-38.9, adult; Z22.322 Carrier or suspected carrier of Methicillin resistant Staphylococcus aureus; B96.1 Klebsiella pneumoniae [K. pneumoniae] as the cause of diseases classified elsewhere; B95.2 Enterococcus as the cause of diseases classified elsewhere; Z16.12 Extended spectrum beta lactamase (ESBL) resistance; I50.9 Heart failure, unspecified
CPT/HCPCS: 32555; 36430; 36569; 36600; 49423; 70450; 71010; 74000; 74176; 74230; 76700; 76937; 80048; 80053; 80202; 81001; 82150; 82550; 82553; 82728; 82803; 82945; 82962; 83036; 83540; 83605; 83615; 83690; 83735; 84100; 84145; 84155; 84157; 84165; 84484; 85025; 85610; 85651; 85730; 86850; 86900; 86901; 86920; 87040; 87070; 87081; 87086; 87102; 87116; 88104; 88305; 89051; 90935; 92526; 92610; 92611; 93005; 93306; 94640; 94664; 96365; 96375; 97110; 97161; 97162; 97530; G0378; C1769; C9113; G0463; J1644; J1650; J1815; J1940; J2060; J2185; J2270; J2370; J2405; J2543; J3010; J3370; J3475; J3480; J7030; J7040; J7042; J7050; J7070; P9016; P9047; Q4081; Q9967

== ENCOUNTER 2017-02-26 11:24 | Inpatient (IN) | payer MEDICARE, BC ==
[~2017-02-26] VITALS: Ht 162.6 cm; Wt 90.9 kg
[~2017-02-26 11:24] MED LIST changes: +ACET325T33 GTB; +ALPR0.254 GTB; +ASCO500C7 GTB; +ASPI81TA3 GTB; +BISA10SU75 PR; +CALC500T79 GTB; +CLOP75TA27 GTB; +CRAN425C GTB; +DEXT15DR2 BOTH EYES; +DOCU-159 GTB; +ESCI10TA GTB; +LACT10SO5 GTB; +LACTINEX GTB; +LANT3I SC; +LEVA1.257 INHALATION; +LIPA1CAP4 GTB; +MAGN400O4 GTB; +METO25TA4 GTB; +METO5TAB58 GTB; +MIDO5TAB19 GTB; +MULT-105 GTB; +NA P230E RC; +TYL500 GTB; +ZINC220T GTB
--- NOTE | 2017-02-26 11:47 | ERA ---
ER Documentation Chief Complaint Date/Time DATE: 02/26/17 TIME: 11:47 Chief Complaint BROUGHT IN VIA EMS DUE TO FEVER AND INCREASED RESPIRATIONS HPI The patient is a 72-year-old female, presenting to the ER because of fever, cough, shortness of breath of unknown duration. 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 Medications Home Meds Active Scripts Latanoprost (Latanoprost) 2.5 Ml Drops, 1 DROP BOTH EYES QHS, #1 BOTTLE Prov:SHAW SRINIVASAN MD 01/17/17 Reported Medications Insulin Glargine* (Lantus*) 100 Unit/Ml Soln, 45 UNIT SC QHS, #1 VIAL 02/26/17 Cranberry Extract (Cranberry) 425 Mg Capsule, 425 MG PO DAILY, CAP 02/26/17 Insulin Aspart* (Novolog Insulin Pen*) 100 Unit/Ml Soln, 0 SC .SLIDING SCALE AC , EA 02/26/17 Fluconazole* (Diflucan*) 100 Mg Tablet, 100 MG PO DAILY for 7 Days, TAB 02/26/17 Lansoprazole* (Lansoprazole*) 30 Mg Capsule.dr, 30 MG GTB AC BREAKFAST, CAP 02/26/17 Eldnhd-Ztqhctfg-Cpkvdil* (Creon DR* 12,000) 12,000 L-38,000-60,000 Unit Capsule.dr, 3 CAP PO WITH MEALS, CAP 02/26/17 Enoxaparin Sodium* (Enoxaparin Sodium*) 30 Mg/0.3 Ml Syringe, 30 MG SC DAILY, SYR 02/26/17 Zinc Sulfate* (Zinc Sulfate*) 220 Mg Tablet, 220 MG GTB DAILY, TAB 01/16/17 Levalbuterol Hcl* (Levalbuterol Hcl*) 1.25 Mg/3 Ml Vial.neb, 1.25 MG INHALATION Q6H Y for WHEEZING AND SOB, VIAL 01/16/17 Ascorbic Acid* (Vitamin C*) 500 Mg Capsule.sa, 500 MG GTB DAILY, CAP 01/16/17 Acetaminophen* (Tylenol*) 500 Mg Tab, 1000 MG GTB Q4H Y for PAIN 4-6/10, TAB 01/16/17 Acetaminophen* (Tylenol*) 325 Mg Tablet, 650 MG GTB Q4H Y for MILD PAIN LEVEL 1- 3, TAB FOR FEVER 100 AND ABOVE AND PAIN MGMT PRIOR TO TX 01/16/17 Metoclopramide* (Reglan*) 5 Mg Tablet, 5 MG GTB AC MEALS, TAB Q6H 01/16/17 Clopidogrel Bisulfate (Clopidogrel) 75 Mg Tablet, 75 MG GTB DAILY, #30 TAB 01/16/17 Multivitamin with Minerals (Multivitamins with Minerals) 1 Each Tablet, 1 EACH GTB DAILY, TAB 01/16/17 Metoprolol Tartrate* (Lopressor*) 25 Mg Tablet, 25 MG GTB BID, #60 TAB HOLD IF SBP<110 OR HR<60 01/16/17 Escitalopram Oxalate* (Lexapro*) 10 Mg Tablet, 10 MG GTB DAILY, #30 TAB 01/16/17 Na Phos,M-B/Na Phos,Di-Ba (Fleet Enema Extra) 230 Ml Enema, 230 ML RC Q2D, ENEMA 01/16/17 Bisacodyl* (Bisacodyl*) 10 Mg Supp, 10 MG PA DAILY Y for PRN, SUPP 01/16/17 Docusate Sodium* (Docusate Sodium*) 100 Mg Capsule, 200 MG GTB QHS, #30 CAP 01/16/17 Calcium Carbonate (NATURAL CALCIUM) 500 Mg Tablet, 500 MG GTB TID, TAB CHEWABLE 01/16/17 Aspirin* (Aspirin* Chew) 81 Mg Tab.chew, 81 MG GTB DAILY, TAB.CHEW 01/16/17 Dextran/Hypromellose/Glycerin (Artificial Tears Drops) 15 Ml Drops, 2 DROP BOTH EYES QID, EA 01/16/17 Discontinued Reported Medications Magnesium Hydroxide* (Milk Of Magnesia*) 400 Mg/5 Ml Oral.susp, 30 ML GTB as needed Y for prn, ML 01/16/17 Midodrine* (Midodrine*) 5 Mg Tablet, 5 MG GTB TID, TAB TAKE TUE,[place],SAT-3AM,11AM,3PM 01/16/17 Midodrine* (Midodrine*) 5 Mg Tablet, 5 MG GTB TID, TAB TAKE EVERY SUN,MON,WED,FRI-8AM,11AM,AND 4PM 01/16/17 Lactulose* (Lactulose*) 10 Gm/15 Ml Solution, 30 ML GTB BID, ML 01/16/17 Jccdfx-Czbzkigv-Xqqfgng* (Thais GARCIA* 12,000) 12,000 L-38,000-60,000 Unit Capsule.dr, 3 CAP GTB WITH MEALS, CAP Q6H 01/16/17 Cranberry Extract (Cranberry) 425 Mg Capsule, 425 MG GTB DAILY, CAP 01/16/17 Alprazolam* (Alprazolam*) 0.25 Mg Tablet, 0.25 MG GTB PRN Y for ANXIETY, TAB 01/16/17 Lactobacillus Acidophilus* (Lactinex*) 1 Tab Chew, 1 TAB GTB TID, TAB 01/16/17 Discontinued Scripts Insulin Glargine* (Lantus*) 100 Unit/Ml Soln, 36 UNIT SC QHS, #1 VIAL Prov:SHAW SRINIVASAN MD 01/17/17 Dorzolamide/Timolol* (Dorzolamide/Timolol*) 10 Ml Drops, 1 DROP BOTH EYES BID, # 1 EA Prov:SHAW SRINIVASAN MD 01/17/17 Allergies Allergies: Coded Allergies: soy (Verified Allergy, Unknown, 01/16/17) PMhx/Soc History of Surgery: Yes (TRANSHEPATIC CATA DRAIN) Anesthesia Reaction: No Hx Neurological Disorder: Yes (encephalopathy) Hx Respiratory Disorders: Yes (PNA) Hx Cardiac Disorders: Yes (CHF, STEMI, HTN, A-FIB, PVD) Hx Psychiatric Problems: Yes (DEPRESSION) Hx Miscellaneous Medical Probl: Yes (HTN, RENAIL FAILURE - DUIALYSIS, STEMI, GERD, PRESSURE ULCERS, ASHD) Hx Alcohol Use: No Hx Substance Use: No Hx Tobacco Use: No Physical Exam Vitals Vital Signs Date Time Temp Pulse Resp B/P Pulse Ox O2 Delivery O2 Flow Rate FiO2 02/26/17 13:20 98.8 99 24 109/62 98 Mask 6.0 02/26/17 12:40 99 18 104/48 98 Mask 8.0 02/26/17 12:05 8.0 02/26/17 11:50 Simple Mask 8 02/26/17 11:37 102.6 95 26 94/49 95 Physical Exam Const: Mild acute distress. Head: Atraumatic. Eyes: Normal Conjunctiva. ENT: Normal External Ears, Nose and Mouth. Neck: Full range of motion. No meningismus. Resp: Clear anterior and lateral, tachypneic Cardio: Regular rate and rhythm. Abd: Soft, non distended, normal bowel sounds, non tender. AMBROSE drainage , PEG Skin: No petechiae or rashes. Back: No midline or flank tenderness. Ext: No cyanosis, or edema. Neur: Unable to perform due to her condition Psych: Unable to perform due to her condition Result Diagram: 02/26/17 1205 02/26/17 1205 Results 24 hrs Laboratory Tests Test 02/26/17 11:48 02/26/17 12:05 02/26/17 12:35 02/26/17 13:37 Blood Gas Specimen Source Blood arterial Arterial Blood Date Drawn 02/26/2017 11:56:14 AM Arterial Blood pH (Temp corrected) 7.466 Arterial Blood pCO2 (Temp correct) 38.6mmhg Arterial Blood pO2 (Temp corrected) 81.4mmHG Arterial Blood HCO3 27.2mmol/L Arterial Blood Base Excess 3.3mmol/L Arterial Blood Oxygen Saturation 96.1mmHG Raz Test N/A Arterial Blood Gas Puncture Site LB Arterial Blood Carboxyhemoglobin 0.2% Arterial Blood Methemoglobin 0.2% Blood Gas A-a O2 Differential 253.4mmHg Oxyhemoglobin Percent 95.7% Total Hemoglobin 11.0g/dl Blood Gas Temperature 37.0C Blood Gas Modality MASK - SIMPLE FiO2 53.0% Blood Gas Notified Whom MDA Blood Gas Notified Time 02/26/2017 12:01:44 PM White Blood Count 19.410^3/ul Red Blood Count 3.4410^6/ul Hemoglobin 9.8g/dl Hematocrit 31.5% Mean Corpuscular Volume 91.6fl Mean Corpuscular Hemoglobin 28.5pg Mean Corpuscular Hemoglobin Concent 31.1g/dl Red Cell Distribution Width 17.1% Platelet Count 39406^3/UL Mean Platelet Volume 9.9fl Neutrophils % 81.2% Lymphocytes % 6.5% Monocytes % 11.3% Eosinophils % 0.2% Basophils % 0.2% Nucleated Red Blood Cells % 0.0/100WBC Neutrophils # (Manual) 1610^3/ul Lymphocytes # 1.310^3/ul Monocytes # 2.210^3/ul Eosinophils # 0.010^3/ul Basophils # 0.010^3/ul Nucleated Red Blood Cells # 0.010^3/ul Prothrombin Time 13.1Sec Prothrombin Time Ratio 1.0 INR International Normalized Ratio 0.99 Activated Partial Thromboplast Time 31.2Sec Sodium Level 133mmol/L Potassium Level 5.8mmol/L Chloride Level 90mmol/L Carbon Dioxide Level 32mmol/L Anion Gap 17 Blood Urea Nitrogen 80mg/dl Creatinine 0.85mg/dl Glucose Level 207mg/dl Lactic Acid Level 2.1mmol/L Calcium Level 9.9mg/dl Total Bilirubin 0.0mg/dl Direct Bilirubin 0.00mg/dl Indirect Bilirubin 0.0mg/dl Aspartate Amino Transf (AST/SGOT) 44IU/L Alanine Aminotransferase (ALT/SGPT) 36IU/L Alkaline Phosphatase 333IU/L Troponin I 0.030ng/ml Total Protein 6.3g/dl Albumin 2.4g/dl Globulin 3.90g/dl Albumin/Globulin Ratio 0.61 Urine Color YELLOW Urine Clarity TURBID Urine pH 5.0 Urine Specific [place] 1.011 Urine Ketones NEGATIVEmg/dL Urine Nitrite NEGATIVEmg/dL Urine Bilirubin NEGATIVEmg/dL Urine Urobilinogen NEGATIVEmg/dL Urine Leukocyte Esterase 3+Naa/ul Urine Microscopic RBC 22/HPF Urine Microscopic WBC > 182/HPF Urine Squamous Epithelial Cells FEW/HPF Urine Bacteria MANY/HPF Urine Mucus FEW/HPF Urine Hemoglobin 1+mg/dL Urine Glucose 1+mg/dL Urine Total Protein 1+mg/dl Bedside Glucose 213mg/dL Test 02/26/17 14:36 02/26/17 14:40 Bedside Glucose 256mg/dL Lactic Acid Level 2.2mmol/L Current Medications Medications (Trade) Dose Ordered Sig/Chris Route PRN Reason Start Time Stop Time Status Last Admin Dose Admin Acetaminophen 650 mg 650 mg ONCE ONCE PA 02/26/17 12:00 02/26/17 12:01 DC 02/26/17 12:16 Piperacillin Sod/ Tazobactam Sod 50 ml @ 100 mls/hr ONCE ONCE IVPB 02/26/17 13:30 02/26/17 13:59 DC 02/26/17 13:40 Vancomycin HCl (Vancocin) 250 ml @ 125 mls/hr ONCE IVPB 02/26/17 13:30 02/26/17 15:29 02/26/17 14:27 Dextrose (D50w Syringe) 50 ml ONCE STAT IV 02/26/17 13:18 02/26/17 13:25 DC 02/26/17 13:40 Insulin Human Regular (Humulin R) 10 unit ONCE ONCE IV 02/26/17 13:30 02/26/17 13:31 DC 02/26/17 13:43 Procedures/MDM EKG: Read by emergency physician Rate/Rhythm: Normal Sinus Rhythm 100 beats/min QRS, ST, T-waves: No ST elevation, no T inversion Impression: Normal EKG [place] [id number] Radiology Main Line: [phone] DIAGNOSTIC IMAGING REPORT Patient: JANIA TRUONG : 1945 Age: 72 Sex: F MR #: [id number] DOS: 02/26/17 1147 Ordering MD: MING LONDON MD Location: E/R Room/Bed: PROCEDURE: XR Chest. CLINICAL INDICATION: Sepsis TECHNIQUE: An AP view of the chest was obtained. COMPARISON: Chest x-ray dated 02/06/2017 FINDINGS: There is a right chest Perma-Cath with tip near the cavoatrial junction. There is prominence of the interstitial and central pulmonary vascular markings with small bilateral pleural effusions. There is small fluid along the right minor fissure. No focal airspace opacification or pneumothorax is seen. The cardiomediastinal silhouette is mildly enlarged . Calcifications are seen within the aortic arch. The osseous structures demonstrate senescent changes. IMPRESSION: 1. Findings suggestive of pulmonary vascular congestion with small bilateral pleural effusions. Findings are mildly increased when compared to the prior examination. 2. Mild cardiomegaly and aortic atherosclerosis. 3. Right chest Perma-Cath with tip near the cavoatrial junction. RPTAT: .Ana Salter MD, MD Date Time Electronically viewed and signed by .Ana Salter MD, MD on 02/26/2017 13 :08 .G/ CC: MING LONDON MD MEDICAL MAKING DECISION: The patient is a 72-year-old female, presenting with acute severe sepsis, acute cystitis, acute CHF, suspected pneumonia, acute hyperkalemia. She was treated with Tylenol suppository for fever, Zosyn IV and vancomycin IV for acute severe sepsis, no IV fluid was given due to concurrent CHF, D50 IV, 10 units of Regular Insulin IV for acute hyperkalemia with good response Admit MDM: Patient's infectious symptoms have not stabilized and the patient is at risk of rapid decompensation. The patient will be admitted for careful hydration, antibiotic therapy, and infectious source control. Severe Sepsis criteria: Infectious source: UTI End organ damage indicated by: Lactate > 2.0 mmol/L Acute Resp Failure (sat < 92% w/o oxygen) Sepsis Management: Time of recognition of severe sepsis/septic shock: 1pm Within 3 hours of recognition: Blood cultures x 2 before broad-spectrum antibiotics: Yes 30 ml/kg NS bolus not completed because of concurrent CHF Initial lactate 2.1 Repeat lactate pending Critical Care: Critical care time 35 minutes excluding billable procedure Emergent fluid management while maintaining close respiratory support. Provision of immediate and broad-spectrum antibiotic therapy. Simultaneous assessment for possible sources in order to direct targeted therapy. Consideration for invasive and chemical support to prevent cardiopulmonary collapse. Septic Shock Assessment: Any lactic acid > 4.0 no Persistent hypotension (SBP < 90 or 40 mmHg drop, MAP < 65) despite 30 mL/kg IV fluid bolusno Departure Diagnosis: Primary Impression: Severe sepsis Additional Impressions: Pneumonia UTI (urinary tract infection) CHF (congestive heart failure) Hyperkalemia Anemia Condition: Stable Comments I discussed the findings with the patient. I discussed the patient with her physician Dr. Castillo who was made aware of the lab, the treatment, the patient condition. She asked me to consult pulmonology Dr. Newberry . The patient is admitted to telemetry at 1:55 PM Consultation: I discussed the patient with Dr. Newberry at 2:15 PM, who saw the patient in the ER MING LONDON MD Feb 26, 2017 11:45
[2017-02-26] MEDS ORDERED: ACETAMINOPHEN 650 MG SUPP PR ONE (12:00)
[2017-02-26 12:19] LABS: AADO2 Arterial 253.4 mmHg (7.0-24.0); Arterial Base Excess 3.3 mmol/L (-3.0-3); Arterial COHb 0.2 % (0.0-3.0); Arterial Fraction of Oxyhgb 95.7 % (93.0-99.0); Arterial HCO3 27.2 mmol/L (22.0-26.0); Arterial MetHb 0.2 % (0.0-1.5); MODE MASK - SIMPLE
[2017-02-26 12:25] LABS: ABNORMAL IP MESSAGE 1; BASOPHILS % 0.2 % (0.0-2.0); EOSINOPHILS % 0.2 % (0.0-7.0); HEMATOCRIT 31.5 % (37.0-47.0); HEMOGLOBIN 9.8 g/dl (12.0-16.0); LYMPHOCYTES # 1.3 10^3/ul (0.8-2.9); LYMPHOCYTES % 6.5 % (15.0-51.0); MEAN CORPUSCULAR HEMOGLOBIN 28.5 pg (29.0-33.0); MEAN CORPUSCULAR HGB CONC 31.1 g/dl (32.0-37.0); MEAN CORPUSCULAR VOLUME 91.6 fl (82.0-101.0); MEAN PLATELET VOLUME 9.9 fl (7.4-10.4); MONOCYTE # 2.2 10^3/ul (0.3-0.9); MONOCYTES % 11.3 % (0.0-11.0); NEUTROPHILS % 81.2 % (39.0-77.0); PLATELET COUNT 484 10^3/UL (140-415); RED BLOOD COUNT 3.44 10^6/ul (4.20-5.40); RED CELL DISTRIBUTION WIDTH 17.1 % (11.5-14.5); WHITE BLOOD COUNT 19.4 10^3/ul (4.8-10.8)
[2017-02-26 12:40] LABS: INR 0.99; PROTIME 13.1 Sec (12.2-14.2)
[2017-02-26 12:41] LABS: PARTIAL THROMBOPLASTIN TIME 31.2 Sec (25.0-35.0)
[2017-02-26 12:44] LABS: ALBUMIN 2.4 g/dl (3.3-4.9); ALBUMIN/GLOBULIN RATIO 0.61; CALCIUM 9.9 mg/dl (8.4-10.2); CREATININE 0.85 mg/dl (0.44-1.00); TOTAL PROTEIN 6.3 g/dl (6.1-8.1)
[2017-02-26 12:47] LABS: POTASSIUM 5.8 mmol/L (3.5-5.1)
[2017-02-26 12:54] LABS: TROPONIN-I 0.03 ng/ml (0.00-0.12)
--- NOTE | 2017-02-26 13:09 | RADRPT ---
PROCEDURE: XR Chest. CLINICAL INDICATION: Sepsis TECHNIQUE: An AP view of the chest was obtained. COMPARISON: Chest x-ray dated 02/06/2017 FINDINGS: There is a right chest Perma-Cath with tip near the cavoatrial junction. There is prominence of the interstitial and central pulmonary vascular markings with small bilatera l pleural effusions. There is small fluid along the right minor fissure. No focal airspace opacific ation or pneumothorax is seen. The cardiomediastinal silhouette is mildly enlarged . Calcification s are seen within the aortic arch. The osseous structures demonstrate senescent changes. IMPRESSION: 1. Findings suggestive of pulmonary vascular congestion with small bilateral pleural effusions. Fi ndings are mildly increased when compared to the prior examination. 2. Mild cardiomegaly and aortic atherosclerosis. 3. Right chest Perma-Cath with tip near the cavoatrial junction. RPTAT: HH .Ana Salter MD, MD Date Time Electronically viewed and signed by .Ana Salter MD, on 02/26/2017 13:08 .Isabella/
[2017-02-26] MEDS ORDERED: DEXTROSE 50% 50 ML SYRINGE IV STA (13:18)
[2017-02-26 13:22] LABS: ADD UMIC YES; UR ASCORBIC ACID 40 mg/dL (NEGATIVE); UR BACTERIA MANY /HPF (NONE SEEN); UR BILIRUBIN (Dip) NEGATIVE (NEGATIVE); UR BLOOD (Dip) 1+ mg/dL (NEGATIVE); UR CLARITY TURBID (CLEAR); UR COLOR YELLOW (YELLOW); UR GLUCOSE (Dip) 1+ mg/dL (NEGATIVE); UR KETONES (Dip) NEGATIVE (NEGATIVE); UR LEUKOCYTE ESTERASE (Dip) 3+ Leu/ul (NEGATIVE); UR MUCUS FEW /HPF (NONE SEEN); UR NITRITE (Dip) NEGATIVE (NEGATIVE); UR RBC 22 /HPF (0-5); UR SPECIFIC GRAVITY (Dip) 1.011 (1.003-1.030); UR SQUAMOUS EPITHELIAL CELL FEW /HPF (FEW); UR TOTAL PROTEIN (Dip) 1+ mg/dl (NEGATIVE); UR UROBILINOGEN (Dip) NEGATIVE (NEGATIVE); UR WBC CLUMPS MANY /HPF (NONE SEEN)
[2017-02-26] MEDS ORDERED: INSULIN REGULAR, HUMAN 100 UNIT/1 ML 3ML VIAL IV ONE (13:30)
[2017-02-26] MEDS ORDERED: VANCOMYCIN 1 GM (PMX) 250 ML IVPB SCH (13:30)
[2017-02-26] MEDS ORDERED: PIPER-TAZO 2.25 GM (PMX) 50 ML IVPB ONE (13:30)
[2017-02-26] MEDS ORDERED: ENOX30DI2 SC (14:25)
[2017-02-26] MEDS ORDERED: LIPA1CAP4 PO (14:26)
[2017-02-26] MEDS ORDERED: LANS30CA GTB (14:34)
[2017-02-26] MEDS ORDERED: FLUC100T PO (14:35)
[2017-02-26] MEDS ORDERED: CRAN425C PO (14:36)
[2017-02-26] MEDS ORDERED: NOVO3I SC (14:36)
[2017-02-26] MEDS ORDERED: LANT3I SC (14:38)
[2017-02-26] MEDS ORDERED: ONDANSETRON 4 MG INJ IV PRN (16:00)
[2017-02-26] MEDS ORDERED: VANCOMYCIN IV PER PHARMACY XX SCH (16:00)
[2017-02-26] MEDS: PIPER-TAZO 2.25 GM (PMX) 50 ML IVPB SCH (19:27)
[2017-02-26] MEDS: ALBUTEROL/IPRATROPIUM (NEB) 3 ML AMP HHN SCH (19:59)
[2017-02-26 20:31] VITALS: TEMP 98.6
[2017-02-26] MEDS ORDERED: DEXTROSE 50% 50 ML SYRINGE IV PRN ×2 (21:00)
[2017-02-26] MEDS ORDERED: GLUCOSE GEL 15 GRAM TUBE PO PRN ×2 (21:00)
[2017-02-26] MEDS ORDERED: GLUCOSE GEL 15 GRAM TUBE BUCCAL PRN (21:00)
[2017-02-26] MEDS ORDERED: GLUCAGON 1 MG INJ IM PRN (21:00)
[2017-02-26 21:13] VITALS: PULSE 112
--- NOTE | 2017-02-26 21:38 | RADRPT ---
AMENDMENT: 03/08/2017 10:48:24 PM Arlen Mckeon M.D One or more of the following dose reduction techniques were used: - Automated exposure control. - Adjustment of the mA and/or kV according to patient size. - Use of iterative reconstruction technique. PROCEDURE: CT ABDOMEN AND PELVIS WITHOUT CONTRAST: CLINICAL INDICATION: 72 years of age, female , abdominal distension. COMPARISON: CT January 16, 2017 TECHNIQUE: CT of the abdomen and pelvis was performed without intravenous contrast. Oral contrast wa s not administered prior to the examination. Coronal and sagittal reformatted images were obtained from the axial source images. Images were revi ewed on a high-resolution PACS workstation. Dose information: Based on a 32 cm phantom, the estimated radiation dose (CTDI vol mGy) for each ser ies in this exam is 23. The estimated cumulative [place] [address]. FINDINGS: In the absence of intravenous contrast, the study constitutes a limited assessment of the solid orga ns, bowel and vessels. LUNG BASES: Moderate bilateral pleural effusions are present. Right pleural effusion is decreased a nd left pleural effusion is increased from prior exam. There is bilateral dependent atelectasis. 1 .7 cm nodule in the aerated lung at the right lung base is concerning for a pulmonary nodule (3/). Coronary artery calcification. ABDOMEN/PELVIS: Liver: Normal noncontrast appearance. Gallbladder: There is a percutaneous cholecystostomy catheter at the superior aspect of the gallblad nona that may be no longer be within the gallbladder lumen. Although the coil remains formed, the me tallic marker has pulled back 2.3 cm into the liver parenchyma. Gallbladder is mildly distended and measures 3.9 cm. Negative for edema in the surrounding fat. Bile ducts: No intrahepatic or extrahepatic biliary duct dilatation. Spleen: Normal noncontrast appearance. Pancreas: Normal noncontrast appearance. Adrenal glands: Normal noncontrast appearance. Kidneys and ureters: There are left renal parapelvic cysts. Kidneys otherwise appear normal. Negat pretty for calculi or hydronephrosis. Aorta and IVC: Atherosclerosis. No aneurysm. Lymph nodes: Normal noncontrast appearance. Gastrointestinal tract: There is a percutaneous gastrostomy tube situated in the gastric body that a ppears in good position. However there is a potential communication between the gastric lumen and th e abdominal wall abscess at the entry site of the tube (3/65). Bowel loops are decompressed. Appendix: Not identified Bladder: Partially filled. There is a Rivas catheter in place. Pelvic Organs: Normal noncontrast appearance. Peritoneal cavity: No free fluid or free intraperitoneal air. There are several dropped clips in th e peritoneal cavity that are unchanged from prior exam. Abdominal wall: Gas and fluid containing abscess in the left abdominal wall extending from anterior left lower ribs to the left suprapubic region has increased in size. Abscess is present in both re ctus abdominus and the oblique muscles and measures 6.4 x 18.7 cm in transverse diameter and 27.2 cm in length (previous 2.9 x 12 x 18 cm). There is diffuse body wall edema that is increased. Small fat containing umbilical hernia. BONES: Musculoskeletal: No suspicious bone lesions. IMPRESSION: Large abscess in left abdominal wall musculature has increased in size since January 16, 2017. Percutan eous gastrostomy tube appears in good position; however, there is concern for communication between the gastric lumen and the abdominal wall alongside the entry site of the PEG with fistulization. Thi s could better be evaluated with a contrast study through the PEG. Surgical consultation is advised. Percutaneous cholecystostomy catheter has pulled back since prior CT and metallic marker is retracte d into the liver parenchyma. The pigtail looped is at the superior aspect of the gallbladder and ma y be external to the gallbladder. Gallbladder is mildly distended. Suggest reevaluation by interve ntional radiology. Moderate bilateral pleural effusions and diffuse body wall edema. Right pleural effusion is decrease d in size and left pleural effusion has increased in size. 1.7 cm right lower lobe pulmonary nodule is incompletely characterized. It may have been obscured b y atelectasis on the prior exam and follow-up comparison is not possible. Recommend further evaluat ion with dedicated chest CT after thoracentesis. Critical results abdominal wall abscess and details about the percutaneous gastrostomy and percutane ous cholecystostomy with recommendations were discussed with Dr. Hayes by Dr. Arlen Mckeon on A ugust 2016 at 09:30 p.m.. RPTAT: HCTS Hannah Mckeon, Physician Date Time Electronically viewed and signed by Hannah Mckeon, Physician on 03/08/2017 22:49 CS/
[2017-02-27] VITALS (13 sets, daily range): BP systolic 101–105; BP diastolic 50–58; PULSE 96–109; RESP 18–21; Ht 162.6 cm; Wt 90.9 kg
[2017-02-27] MEDS: SOD CHLORIDE 0.9% 1,000 ML IV SCH ×3 (00:25→10:35)
[2017-02-27] MEDS: PIPER-TAZO 2.25 GM (PMX) 50 ML IVPB SCH ×2 (00:26→06:20)
[2017-02-27] MEDS: INSULIN ASPART [NOVOLOG] 3 ML PEN SC SCH ×5 (00:28→20:31)
--- NOTE | 2017-02-27 01:24 | CONS ---
DATE OF ADMISSION: 02/26/2017 DATE OF CONSULTATION: 02/26/2017 REASON FOR CONSULTATION: Respiratory distress. Thank you, Dr. Castillo, for this consultation. HISTORY OF PRESENT ILLNESS: This is an unfortunate 72-year-old lady, multiple medical problems, multiple extended stays at [facility] for complex medical problems, recently discharged [facility] a penitentiary facility, now readmitted with increasing lethargy, fever, leukocytosis and hypoxemia, requiring supplemental O2. Patient is currently on supplemental O2, is comfortable, at rest. is at bedside. PAST MEDICAL HISTORY: Recurrent septic shock, encephalopathy, hypoxemic respiratory failure, chronic kidney disease, peripheral vascular disease, cholecystostomy with AMBROSE drain, cardiology disease with PCI, end-stage renal failure, on hemodialysis, G- tube for dysphagia. MEDICATION: Per chart. ALLERGIES: NONE. SOCIAL HISTORY: Nonsmoker. No alcohol. No history of drug use. FAMILY HISTORY: Noncontributory. REVIEW OF SYSTEMS: A 12-point review of systems, unable to perform. GENERAL: Chronically ill-appearing lady, appears comfortable, on face mask. Makes eye contact. Nonverbal. VITAL SIGNS: Temperature 98, pulse 99, blood pressure 109/62, O2 saturation 98 percent on 6 L. NECK: Supple. No JVD or lymphadenopathy. HEART: S1, S2. No added sounds or murmurs. CHEST: Diminished air entry bilaterally. ABDOMEN: Soft, nontender. No guarding or rebound. EXTREMITIES: No cyanosis, clubbing or edema. NEUROLOGIC: Generalized weakness. LABORATORY: White count 19.4, hemoglobin 9.8, platelets of 484. BUN 80, creatinine 0.85. INR 0.99. Lactic acid 2.2. ABG pH 7.46, pCO2 of 38, pO2 of 81. Chest x-ray was reviewed, shows ongoing vascular congestion with small pleural effusions. Initial urinalysis shows 3+ leuk esterase, with significant bacteria. IMPRESSION: 1. Likely urosepsis. 2. Hypoxemia secondary to hypoventilation and pulmonary edema. 3. End-stage renal failure, on hemodialysis. 4. Encephalopathy following cardiopulmonary arrest. PLAN: Patient will require: 1. Continued broad-spectrum antibiotics. 2. Continued supplemental O2. 3. Possible hemodialysis. 4. Considering addressing code status once again, as overall prognosis is extremely poor, quality of life is significantly diminished. Dictated By: Chidi Newberry MD /fnt/rodrigo /Document#: [id number]
[2017-02-27] MEDS ORDERED: ACCU-CHEK XX SCH (02:00)
[2017-02-27] MEDS ORDERED: PENDING SANTYL ORDER FOR WOUND CARE XX PRN (03:30)
--- NOTE | 2017-02-27 06:10 | CONS ---
DATE OF ADMISSION: 02/26/2017 DATE OF CONSULTATION: 02/26/2017 Thank you, Dr. Guevara, for asking me to participate in the medical management of this patient. REASON FOR CONSULTATION: Renal failure. HISTORY OF PRESENT ILLNESS: This 72-year-old female was transferred today from a local long-term because of fever and altered mental status. The patient is now still in the emergency room. I know this patient very well from her previous hospital admissions. This patient was originally admitted here this year on September 20, 2016, when she suffered a cardiac arrest at home. She was brought in and was found to have an acute myocardial infarction. She underwent a cardiac catheterization and had stents placed. Subsequent to that cardiac arrest, the patient suffered acute renal failure and anoxic encephalopathy. The patient eventually required hemodialysis. She was on dialysis for at least 3 months. She eventually was transferred out of the hospital and was kept on outpatient hemodialysis. The patient then on January 16, 2017, was readmitted because of a gastrostomy site leak. The patient had peritonitis. She was readmitted and had her feeding tube replaced. She also developed a urinary tract infection with sepsis. She had an acute cholecystitis and had a cholecystotomy tube placed. The patient was eventually able to be taken off hemodialysis. Her renal function had recovered enough. She was then stabilized and transferred to the local [facility]. She is now in the emergency room. The patient was transferred almost 2 weeks ago to the long-term. She was apparently doing well at the long-term, according to her , until this morning when she developed fever. She did not have a Rivas catheter in place. A Rivas catheter was replaced in the emergency room here, and her urine is very cloudy and infected looking. The patient is awake; however, she is a little confused as to time. She knows she is in [facility]. The patient did suffer some anoxic encephalopathy at the time of her cardiac arrest in September of this year. She has not recovered fully from that. The patient has been suffering from dysphagia and has been unable to swallow. She has a gastric feeding tube, which she has had for months. MEDICATION: The patient is on the following medications: 1. Fluconazole 100 mg a day. 2. Levalbuterol inhaler q.6 hours. 3. Plavix 75 mg a day. 4. Lovenox 30 mg a day. 5. Metoprolol 25 mg twice a day. 6. Acetaminophen. 7. Aspirin 81 mg a day. 8. Lexapro 10 mg a day. 9. Calcium carbonate 500 mg 3 times a day. 10. Zinc sulfate 220 mg a day. 11. Artificial Tears. 12. Latanoprost eyedrops. 13. Lansoprazole 30 mg a day. 14. Creon DR 3 capsules with meals. 15. Metoprolol 5 mg q.6 hours. 16. Fleet's enema. 17. Insulin sliding scale. 18. Insulin Lantus 45 units a day. 19. Ascorbic acid. 20. Multivitamin. 21. Cranberry extract. PAST MEDICAL HISTORY: Remarkable for the followin. Chronic kidney disease with previously being on hemodialysis. 2. Respiratory failure, previously on a ventilator. 3. Atherosclerotic heart disease. 4. Status post acute [place] with stent placement. 5. Cardiac arrest with acute renal failure and anoxic encephalopathy. 6. Dysphagia requiring PEG tube placement. 7. Type 2 diabetes mellitus on insulin. 8. Erica urinary tract infection. 9. E. coli and enterococcus urinary tract infection. 10. E. coli bacteremia. 11. Acute cholecystitis with a drainage tube now in the gallbladder. 12. Anasarca. 13. Splenectomy. 14. Congestive heart failure. 15. Gastrointestinal bleeding. 16. Hyperlipidemia. 17. Hypertension. PAST SURGICAL HISTORY: Angioplasty with stent placement. PHYSICAL EXAMINATION: GENERAL: At this time reveals an ill-appearing female. She is responsive but is slow with her speech. VITAL SIGNS: At this time, temperature is now 98.8. On admission here, her temperature was 102.6. Pulse of 104, respirations 23, blood pressure 101/59, O2 saturation of 98 percent on 2 L nasal cannula. HEENT: Head: Normocephalic. Eyes: The pupils are equal, round and react to light. Extraocular muscles intact. Nose and mouth normal. Her facial cheeks are erythematous and flushed. NECK: Supple. No neck vein distention. LUNGS: Clear to auscultation, but there was a diminished respiratory effort and diminished breath sounds. HEART: Regular rhythm. No murmurs, gallops or rubs. ABDOMEN: Distended. There is a cholecystotomy tube in the right upper quadrant. There is a PEG tube in the left upper quadrant. The left upper abdomen is very full and tense, and there is some tenderness. She does have a right internal jugular PermCath. She has flank edema. a Rivas catheter, which is draining some rather purulent-looking urine. EXTREMITIES: There is no peripheral edema in the legs. She does have some gangrenous toes on both feet. LABORATORY: Tests done today: White blood count 19,400, hemoglobin 9.8, hematocrit 31.5. Chemistry panel: Lactate level is 2.2, sodium 133, potassium 5.8, BUN 80, creatinine 0.85, albumin 2.4. Arterial blood gases: pH 7.466, pCO2 of 38.6, bicarb of 27.2. IMPRESSION: 1. Acute renal failure. This patient has an elevated BUN with a normal serum creatinine. I suspect she has some prerenal azotemia due to sepsis. She has a urinary tract infection. She also has some left upper quadrant tenderness and fullness. She did have a problem with leakage from her gastric feeding tube previously. She should respond to intravenous fluids. 2. Urinary tract infection with sepsis. 3. History of cardiac arrest with acute renal failure requiring dialysis and anoxic encephalopathy. 4. Previous urinary tract infections. 5. Anemia. 6. Dysphagia with a gastric feeding tube in place. 7. Acute cholecystitis with a gallbladder tube draining. PLAN: 1. Recommend a CT scan of the abdomen and pelvis to evaluate LUQ fullness and tenderness 2. IV fluids. 3. Broad-spectrum antibiotics. 4. Kayexalate to lower potassium. 5. I will follow the patient along with you medically. Dictated By: Keon Borden MD /sari/garrett /Document#: [id number] MAYO
--- NOTE | 2017-02-27 07:56 | CONS ---
Date/Time of Note Date/Time of Note DATE: 02/27/17 TIME: 07:52 Assessment/Plan Assessment/Plan Chief Complaint/Hosp Course 1) CAD 2) coronary angioplasty status 3) [place] 09/20 4) Preserved LV function 5) Sepsis 6) Abdominal wall abscess 7) ESRD Problems: Additional Assessment/Plan 1) pat off antiplatelet therapy, I will evaluate whether this has been stopped recently, or patient is not on DAPT for clinical reason Consultation Date/Type/Reason Admit Date/Time Feb 26, 2017 at 13:57 Type of Consultation: cv Reason for Consultation CAD Hx of Present Illness admitted with fever, suggestive of sepsis, no chest pain, no sob, Constitutional: febrile Respiratory: no complaints Cardiovascular: no complaints Gastrointestinal: no complaints Musculoskeletal: no complaints Skin: no complaints Neurologic: no complaints Endocrine: no complaints Past Medical History Medical History: coronary artery disease, high cholesterol, hypertension Past Surgical History Past Surgical Hx: noncontributory, angioplasty Family History Significant Family History: hypertension Social History Alcohol Use: none Smoking Status: Never smoker Drug Use: none Exam/Review of Systems Vital Signs Vitals Vital Signs Date Time Temp Pulse Resp B/P Pulse Ox O2 Delivery O2 Flow Rate FiO2 02/27/17 04:25 97.6 110 21 101/51 94 02/27/17 00:37 2.0 02/26/17 22:00 Nasal Cannula Intake and Output 02/26/17 02/26/17 02/27/17 15:00 23:00 07:00 Intake Total 50 ml 1445 ml Output Total 600 ml 300 ml Balance 50 ml -600 ml 1145 ml Exam Constitutional: frail Head: atraumatic, normocephalic Neck: supple Respiratory: clear to auscultation Cardiovascular: regular rate and rhythm Gastrointestinal: soft Musculoskeletal: nl extremities to inspection Extremities: normal pulses Results Result Diagram: 02/26/17 1205 02/26/17 1205 Results 24 hrs Laboratory Tests Test 02/26/17 11:48 02/26/17 12:05 02/26/17 12:35 02/26/17 13:37 Blood Gas Specimen Source Blood arterial Arterial Blood Date Drawn 02/26/2017 11:56:14 AM Arterial Blood pH (Temp corrected) 7.466 H Arterial Blood pCO2 (Temp correct) 38.6 Arterial Blood pO2 (Temp corrected) 81.4 Arterial Blood HCO3 27.2 H Arterial Blood Base Excess 3.3 H Arterial Blood Oxygen Saturation 96.1 Raz Test N/A Arterial Blood Gas Puncture Site LB Arterial Blood Carboxyhemoglobin 0.2 Arterial Blood Methemoglobin 0.2 Blood Gas A-a O2 Differential 253.4 H Oxyhemoglobin Percent 95.7 Total Hemoglobin 11.0 L Blood Gas Temperature 37.0 Blood Gas Modality MASK - SIMPLE FiO2 53.0 Blood Gas Notified Whom MDA Blood Gas Notified Time 02/26/2017 12:01:44 PM White Blood Count 19.4 #H Red Blood Count 3.44 L Hemoglobin 9.8 L Hematocrit 31.5 L Mean Corpuscular Volume 91.6 Mean Corpuscular Hemoglobin 28.5 L Mean Corpuscular Hemoglobin Concent 31.1 L Red Cell Distribution Width 17.1 H Platelet Count 484 H Mean Platelet Volume 9.9 Neutrophils % 81.2 H Lymphocytes % 6.5 L Monocytes % 11.3 H Eosinophils % 0.2 Basophils % 0.2 Nucleated Red Blood Cells % 0.0 Neutrophils # (Manual) 16 H Lymphocytes # 1.3 Monocytes # 2.2 H Eosinophils # 0.0 Basophils # 0.0 Nucleated Red Blood Cells # 0.0 Prothrombin Time 13.1 Prothrombin Time Ratio 1.0 INR International Normalized Ratio 0.99 Activated Partial Thromboplast Time 31.2 Sodium Level 133 L Potassium Level 5.8 H Chloride Level 90 L Carbon Dioxide Level 32 H Anion Gap 17 H Blood Urea Nitrogen 80 H Creatinine 0.85 Glucose Level 207 Lactic Acid Level 2.1 H Calcium Level 9.9 Total Bilirubin 0.0 L Direct Bilirubin 0.00 Indirect Bilirubin 0.0 Aspartate Amino Transf (AST/SGOT) 44 Alanine Aminotransferase (ALT/SGPT) 36 Alkaline Phosphatase 333 H Troponin I 0.030 Total Protein 6.3 Albumin 2.4 L Globulin 3.90 H Albumin/Globulin Ratio 0.61 Urine Color YELLOW Urine Clarity TURBID A Urine pH 5.0 Urine Specific Thermal 1.011 Urine Ketones NEGATIVE Urine Nitrite NEGATIVE Urine Bilirubin NEGATIVE Urine Urobilinogen NEGATIVE Urine Leukocyte Esterase 3+ H Urine Microscopic RBC 22 H Urine Microscopic WBC > 182 H Urine Squamous Epithelial Cells FEW Urine Bacteria MANY A Urine Mucus FEW A Urine Hemoglobin 1+ H Urine Glucose 1+ H Urine Total Protein 1+ H Bedside Glucose 213 Test 02/26/17 14:36 02/26/17 14:40 02/26/17 17:30 02/26/17 21:16 Bedside Glucose 256 H 201 Lactic Acid Level 2.2 *H 2.0 Test 02/27/17 06:25 Bedside Glucose 361 H Medications Medications Current Medications Piperacillin Sod/ Tazobactam Sod (Zosyn 2.25gm/ 50ml (Pmx)) 50 ml @ 100 mls/hr Q6 IVPB Last administered on 02/27/17 06:20; Admin Dose 100 MLS/HR; Start at 18:00 Ondansetron HCl 4 mg 4 mg Q6H PRN IV NAUSEA AND/OR VOMITING; Start 02/26/17 at 16:00 Sodium Chloride (NS) 1,000 ml @ 125 mls/hr Q8H IV Last administered on 00:25; Admin Dose 125 MLS/HR; Start 02/26/17 at 20:00 Diagnostic Test (Pha) (Accu-Chek) 1 ea 02 XX Last administered on 02/27/17 06: 20; Admin Dose 1 EA; Start 02/27/17 at 02:00 Miscellaneous Information 1 ea NOTE XX ; Start 02/26/17 at 21:00 Glucose (Glutose) 15 gm Q15M PRN PO DECREASED GLUCOSE; Start 02/26/17 at 21:00 Glucose (Glutose) 22.5 gm Q15M PRN PO DECREASED GLUCOSE; Start 02/26/17 at 21: 00 Dextrose (D50w Syringe) 25 ml Q15M PRN IV DECREASED GLUCOSE; Start 02/26/17 at 21:00 Dextrose (D50w Syringe) 50 ml Q15M PRN IV DECREASED GLUCOSE; Start 02/26/17 at 21:00 Glucagon (Glucagen) 1 mg Q15M PRN IM DECREASED GLUCOSE; Start 02/26/17 at 21:00 Glucose (Glutose) 15 gm Q15M PRN BUCCAL DECREASED GLUCOSE; Start 02/26/17 at 21 :00 Miscellaneous Information (Pending [facility] Order For Wound Care) This patient le... PRN PRN XX WOUND CARE; Start 02/27/17 at 03:30 Procedures Procedures EKG: SR, no significant abnormalities ASTRID RIVAS MD Feb 27, 2017 07:56
[2017-02-27] MEDS: ALBUTEROL/IPRATROPIUM (NEB) 3 ML AMP HHN SCH ×3 (08:00→20:55)
--- NOTE | 2017-02-27 08:22 | RADRPT ---
PROCEDURE: XR Chest. CLINICAL INDICATION: Sepsis. TECHNIQUE: Single frontal view. COMPARISON: 02/26/2017. FINDINGS: There is a tunneled right internal jugular vein dialysis catheter with the tip in the cavoatrial hilario ction region. Pulmonary edema is unchanged. The heart is enlarged. There are small bilateral pleural effusions. There is no pneumothorax. IMPRESSION: 1. No significant change from 02/26/2017. RPTAT: QQ .Arnaldo Back MD, MD Date Time Electronically viewed and signed by .Arnaldo Back MD, MD on 02/27/2017 08:21 .R/
[2017-02-27 08:25] LABS: ABNORMAL IP MESSAGE 1; BASOPHILS % 0.1 % (0.0-2.0); EOSINOPHILS # 0.1 10^3/ul (0.0-0.5); EOSINOPHILS % 0.9 % (0.0-7.0); HEMATOCRIT 27.9 % (37.0-47.0); HEMOGLOBIN 8.2 g/dl (12.0-16.0); LYMPHOCYTES # 0.9 10^3/ul (0.8-2.9); LYMPHOCYTES % 6.3 % (15.0-51.0); MEAN CORPUSCULAR HEMOGLOBIN 27.4 pg (29.0-33.0); MEAN CORPUSCULAR HGB CONC 29.4 g/dl (32.0-37.0); MEAN CORPUSCULAR VOLUME 93.3 fl (82.0-101.0); MEAN PLATELET VOLUME 10.3 fl (7.4-10.4); MONOCYTE # 1.8 10^3/ul (0.3-0.9); MONOCYTES % 12.9 % (0.0-11.0); NEUTROPHILS % 78.8 % (39.0-77.0); PLATELET COUNT 444 10^3/UL (140-415); RED BLOOD COUNT 2.99 10^6/ul (4.20-5.40); WHITE BLOOD COUNT 13.9 10^3/ul (4.8-10.8)
[2017-02-27 08:33] LABS: POSITIVE DIFF @See below
[2017-02-27 09:06] LABS: CREATININE 0.94 mg/dl (0.44-1.00); PHOSPHORUS 5.1 mg/dl (2.5-4.9); POTASSIUM 5.7 mmol/L (3.5-5.1)
[2017-02-27] MEDS ORDERED: VANCOMYCIN 1 GM (PMX) 250 ML IVPB SCH (11:00)
--- NOTE | 2017-02-27 11:15 | CONS ---
Date/Time of Note Date/Time of Note DATE: 02/27/17 TIME: 11:12 Assessment/Plan Assessment/Plan Additional Assessment/Plan Assessment and recommendations; 1. Patient admitted for sepsis from UTI. 2. History of prior cholecystectomy with AMBROSE drain in place. 3. Abdominal wall abscess. 4. Anemia. 5. Chronic renal failure, on hemodialysis. 6. Mild pulmonary edema. Continue current supportive care. Patient currently on appropriate antibiotic regimen. Leukocytosis is improving. Consultation Date/Type/Reason Admit Date/Time Feb 26, 2017 at 13:57 Initial Consult Date Type of Consultation: Pulmonary 24 HR Interval Summary Free Text/Dictation Patient condition is stable. Remains awake. Has remained hemodynamically stable. No untoward events reported. General exam; elderly woman, awake, currently in no distress. Exam/Review of Systems Vital Signs Vitals Vital Signs Date Time Temp Pulse Resp B/P Pulse Ox O2 Delivery O2 Flow Rate FiO2 02/27/17 08:36 104 02/27/17 08:02 98.2 18 105/51 96 02/27/17 08:00 Nasal Cannula 3.0 Intake and Output 02/26/17 02/26/17 02/27/17 15:00 23:00 07:00 Intake Total 50 ml 1445 ml Output Total 600 ml 300 ml Balance 50 ml -600 ml 1145 ml Exam HEENT exam; supple neck, positive JVD. No lymphadenopathy. Midline trachea. No thyromegaly. Patient has multiple carious teeth. Chest exam; diminished but clear breath sounds. S1-S2 audible, no murmurs. Regular rhythm. There is a hemodialysis catheter in the right subclavian area. Abdomen exam; there is a right upper quadrant AMBROSE drain in place. G-tube in place. Bowel sounds audible. Abdomen is nontender. Extremity exam; 1+ generalized anasarca. FORESTRY HUNTER exam; patient awake and follows simple commands. Exhibiting generalized muscular weakness. Results Result Diagram: 02/27/17 0747 02/27/17 0747 Results 24 hrs Laboratory Tests Test 02/26/17 11:48 02/26/17 12:05 02/26/17 12:35 02/26/17 13:37 Blood Gas Specimen Source Blood arterial Arterial Blood Date Drawn 02/26/2017 11:56:14 AM Arterial Blood pH (Temp corrected) 7.466 H Arterial Blood pCO2 (Temp correct) 38.6 Arterial Blood pO2 (Temp corrected) 81.4 Arterial Blood HCO3 27.2 H Arterial Blood Base Excess 3.3 H Arterial Blood Oxygen Saturation 96.1 Raz Test N/A Arterial Blood Gas Puncture Site LB Arterial Blood Carboxyhemoglobin 0.2 Arterial Blood Methemoglobin 0.2 Blood Gas A-a O2 Differential 253.4 H Oxyhemoglobin Percent 95.7 Total Hemoglobin 11.0 L Blood Gas Temperature 37.0 Blood Gas Modality MASK - SIMPLE FiO2 53.0 Blood Gas Notified Whom [facility] Blood Gas Notified Time 02/26/2017 12:01:44 PM White Blood Count 19.4 #H Red Blood Count 3.44 L Hemoglobin 9.8 L Hematocrit 31.5 L Mean Corpuscular Volume 91.6 Mean Corpuscular Hemoglobin 28.5 L Mean Corpuscular Hemoglobin Concent 31.1 L Red Cell Distribution Width 17.1 H Platelet Count 484 H Mean Platelet Volume 9.9 Neutrophils % 81.2 H Lymphocytes % 6.5 L Monocytes % 11.3 H Eosinophils % 0.2 Basophils % 0.2 Nucleated Red Blood Cells % 0.0 Neutrophils # (Manual) 16 H Lymphocytes # 1.3 Monocytes # 2.2 H Eosinophils # 0.0 Basophils # 0.0 Nucleated Red Blood Cells # 0.0 Prothrombin Time 13.1 Prothrombin Time Ratio 1.0 INR International Normalized Ratio 0.99 Activated Partial Thromboplast Time 31.2 Sodium Level 133 L Potassium Level 5.8 H Chloride Level 90 L Carbon Dioxide Level 32 H Anion Gap 17 H Blood Urea Nitrogen 80 H Creatinine 0.85 Glucose Level 207 Lactic Acid Level 2.1 H Calcium Level 9.9 Total Bilirubin 0.0 L Direct Bilirubin 0.00 Indirect Bilirubin 0.0 Aspartate Amino Transf (AST/SGOT) 44 Alanine Aminotransferase (ALT/SGPT) 36 Alkaline Phosphatase 333 H Troponin I 0.030 Total Protein 6.3 Albumin 2.4 L Globulin 3.90 H Albumin/Globulin Ratio 0.61 Urine Color YELLOW Urine Clarity TURBID A Urine pH 5.0 Urine Specific [place] 1.011 Urine Ketones NEGATIVE Urine Nitrite NEGATIVE Urine Bilirubin NEGATIVE Urine Urobilinogen NEGATIVE Urine Leukocyte Esterase 3+ H Urine Microscopic RBC 22 H Urine Microscopic WBC > 182 H Urine Squamous Epithelial Cells FEW Urine Bacteria MANY A Urine Mucus FEW A Urine Hemoglobin 1+ H Urine Glucose 1+ H Urine Total Protein 1+ H Bedside Glucose 213 Test 02/26/17 14:36 8/23/17 14:40 02/26/17 17:30 02/26/17 21:16 Bedside Glucose 256 H 201 Lactic Acid Level 2.2 *H 2.0 Test 02/27/17 06:25 02/27/17 07:47 02/27/17 10:28 Bedside Glucose 361 H 383 H White Blood Count 13.9 #H Red Blood Count 2.99 L Hemoglobin 8.2 L Hematocrit 27.9 L Mean Corpuscular Volume 93.3 Mean Corpuscular Hemoglobin 27.4 L Mean Corpuscular Hemoglobin Concent 29.4 L Red Cell Distribution Width 17.0 H Platelet Count 444 H Mean Platelet Volume 10.3 Neutrophils % 78.8 H Lymphocytes % 6.3 L Monocytes % 12.9 H Eosinophils % 0.9 Basophils % 0.1 Nucleated Red Blood Cells % 0.0 Neutrophils # (Manual) 11 H Lymphocytes # 0.9 Monocytes # 1.8 H Eosinophils # 0.1 Basophils # 0.0 Nucleated Red Blood Cells # 0.0 Sodium Level Pending Potassium Level 5.7 H Chloride Level 93 L Carbon Dioxide Level 29 Anion Gap 13 Blood Urea Nitrogen 82 H Creatinine 0.94 Glucose Level 307 H Lactic Acid Level 1.3 Calcium Level 9.0 Phosphorus Level 5.1 H Magnesium Level 2.0 Medications Medications Current Medications Piperacillin Sod/ Tazobactam Sod (Zosyn 2.25gm/ 50ml (Pmx)) 50 ml @ 100 mls/hr Q6 IVPB Last administered on 02/27/17 06:20; Admin Dose 100 MLS/HR; Start at 18:00 Ondansetron HCl 4 mg 4 mg Q6H PRN IV NAUSEA AND/OR VOMITING; Start 02/26/17 at 16:00 Sodium Chloride (NS) 1,000 ml @ 125 mls/hr Q8H IV Last administered on 10:35; Admin Dose 125 MLS/HR; Start 02/26/17 at 20:00 Diagnostic Test (Pha) (Accu-Chek) 1 ea 02 XX Last administered on 02/27/17 06: 20; Admin Dose 1 EA; Start 02/27/17 at 02:00 Miscellaneous Information 1 ea NOTE XX ; Start 02/26/17 at 21:00 Glucose (Glutose) 15 gm Q15M PRN PO DECREASED GLUCOSE; Start 02/26/17 at 21:00 Glucose (Glutose) 22.5 gm Q15M PRN PO DECREASED GLUCOSE; Start 02/26/17 at 21: 00 Dextrose (D50w Syringe) 25 ml Q15M PRN IV DECREASED GLUCOSE; Start 02/26/17 at 21:00 Dextrose (D50w Syringe) 50 ml Q15M PRN IV DECREASED GLUCOSE; Start 02/26/17 at 21:00 Glucagon (Glucagen) 1 mg Q15M PRN IM DECREASED GLUCOSE; Start 02/26/17 at 21:00 Glucose (Glutose) 15 gm Q15M PRN BUCCAL DECREASED GLUCOSE; Start 02/26/17 at 21 :00 Miscellaneous Information This patient le... PRN PRN XX WOUND CARE; Start 02/27 at 03:30 Vancomycin HCl (Vancocin) 250 ml @ 125 mls/hr ONCE IVPB ; Start 02/27/17 at 11: 00; Stop 02/27/17 at 14:00 ADIS CAMACHO Feb 27, 2017 11:15
--- NOTE | 2017-02-27 11:59 | CONS ---
Date/Time of Note Date/Time of Note DATE: 02/27/17 TIME: 11:49 Assessment/Plan Assessment/Plan Chief Complaint/Hosp Course 1) UTI, hx of +ESBL in urine change zosyn to merrem await final report on urine cx 2) hx of choleycystitis on CT the gall bladder looks ok re-consult dr. lomax to see if drainage tube can be removed 3) abd wall fluid collection this tracks down to the pelvis and likely emanates from the g-tube will order CT abd with oral contrast via the PEG cx from around the g-tube pt may need surgical intervention for this will consider WBC scan continue with vanco/merrem get nasal swab for MRSA 4) CAD hx of CABG 5) hx of anoxic encephalopathy Problems: Consultation Date/Type/Reason Admit Date/Time Feb 26, 2017 at 13:57 Date of Consultation: Feb 27, 2017 Type of Consultation: ID Hx of Present Illness [facility] and developed decreased level of consciousness and fever for one day No reports of vomiting or diarrhea breathing is stable Constitutional: febrile Respiratory: no complaints Cardiovascular: no complaints Gastrointestinal: no complaints Musculoskeletal: no complaints Skin: no complaints Neurologic: no complaints Endocrine: no complaints Past Medical History STEMI, anoxic encephalopathy, ASHD, GERD, sacral ulcer, CRI (was on HD), g-tube feeds Medical History: coronary artery disease, high cholesterol, hypertension Past Surgical History CABG, g-tube placed Past Surgical Hx: noncontributory, angioplasty Social History Alcohol Use: none Smoking Status: Never smoker Drug Use: none Exam/Review of Systems Vital Signs Vitals Vital Signs Date Time Temp Pulse Resp B/P Pulse Ox O2 Delivery O2 Flow Rate FiO2 02/27/17 11:11 Nasal Cannula 3.0 02/27/17 08:36 104 02/27/17 08:02 98.2 18 105/51 96 Intake and Output 02/26/17 02/26/17 02/27/17 15:00 23:00 07:00 Intake Total 50 ml 1600 ml Output Total 600 ml 300 ml Balance 50 ml -600 ml 1300 ml Exam Constitutional: alert, non-verbal Eyes: nl conjunctiva Respiratory: other (decreased BS at bases) Cardiovascular: regular rate and rhythm Gastrointestinal: other (firmness of skin to L side and flank of abdomen, no redness, g-tube site has leakage of feed, minimal redness), soft Results Result Diagram: 8/24/17 0747 02/27/17 0747 Results 24 hrs Laboratory Tests Test 02/26/17 12:05 02/26/17 12:35 02/26/17 13:37 02/26/17 14:36 White Blood Count 19.4 #H Red Blood Count 3.44 L Hemoglobin 9.8 L Hematocrit 31.5 L Mean Corpuscular Volume 91.6 Mean Corpuscular Hemoglobin 28.5 L Mean Corpuscular Hemoglobin Concent 31.1 L Red Cell Distribution Width 17.1 H Platelet Count 484 H Mean Platelet Volume 9.9 Neutrophils % 81.2 H Lymphocytes % 6.5 L Monocytes % 11.3 H Eosinophils % 0.2 Basophils % 0.2 Nucleated Red Blood Cells % 0.0 Neutrophils # (Manual) 16 H Lymphocytes # 1.3 Monocytes # 2.2 H Eosinophils # 0.0 Basophils # 0.0 Nucleated Red Blood Cells # 0.0 Prothrombin Time 13.1 Prothrombin Time Ratio 1.0 INR International Normalized Ratio 0.99 Activated Partial Thromboplast Time 31.2 Sodium Level 133 L Potassium Level 5.8 H Chloride Level 90 L Carbon Dioxide Level 32 H Anion Gap 17 H Blood Urea Nitrogen 80 H Creatinine 0.85 Glucose Level 207 Lactic Acid Level 2.1 H Calcium Level 9.9 Total Bilirubin 0.0 L Direct Bilirubin 0.00 Indirect Bilirubin 0.0 Aspartate Amino Transf (AST/SGOT) 44 Alanine Aminotransferase (ALT/SGPT) 36 Alkaline Phosphatase 333 H Troponin I 0.030 Total Protein 6.3 Albumin 2.4 L Globulin 3.90 H Albumin/Globulin Ratio 0.61 Urine Color YELLOW Urine Clarity TURBID A Urine pH 5.0 Urine Specific [place] 1.011 Urine Ketones NEGATIVE Urine Nitrite NEGATIVE Urine Bilirubin NEGATIVE Urine Urobilinogen NEGATIVE Urine Leukocyte Esterase 3+ H Urine Microscopic RBC 22 H Urine Microscopic WBC > 182 H Urine Squamous Epithelial Cells FEW Urine Bacteria MANY A Urine Mucus FEW A Urine Hemoglobin 1+ H Urine Glucose 1+ H Urine Total Protein 1+ H Bedside Glucose 213 256 H Test 02/26/17 14:40 02/26/17 17:30 02/26/17 21:16 02/27/17 06:25 Lactic Acid Level 2.2 *H 2.0 Bedside Glucose 201 361 H Test 02/27/17 07:47 02/27/17 10:28 White Blood Count 13.9 #H Red Blood Count 2.99 L Hemoglobin 8.2 L Hematocrit 27.9 L Mean Corpuscular Volume 93.3 Mean Corpuscular Hemoglobin 27.4 L Mean Corpuscular Hemoglobin Concent 29.4 L Red Cell Distribution Width 17.0 H Platelet Count 444 H Mean Platelet Volume 10.3 Neutrophils % 78.8 H Lymphocytes % 6.3 L Monocytes % 12.9 H Eosinophils % 0.9 Basophils % 0.1 Nucleated Red Blood Cells % 0.0 Neutrophils # (Manual) 11 H Lymphocytes # 0.9 Monocytes # 1.8 H Eosinophils # 0.1 Basophils # 0.0 Nucleated Red Blood Cells # 0.0 Sodium Level Pending Potassium Level 5.7 H Chloride Level 93 L Carbon Dioxide Level 29 Anion Gap 13 Blood Urea Nitrogen 82 H Creatinine 0.94 Glucose Level 307 H Lactic Acid Level 1.3 Calcium Level 9.0 Phosphorus Level 5.1 H Magnesium Level 2.0 Bedside Glucose 383 H Medications Medications Current Medications Piperacillin Sod/ Tazobactam Sod (Zosyn 2.25gm/ 50ml (Pmx)) 50 ml @ 100 mls/hr Q6 IVPB Last administered on 02/27/17 06:20; Admin Dose 100 MLS/HR; Start at 18:00 Ondansetron HCl 4 mg 4 mg Q6H PRN IV NAUSEA AND/OR VOMITING; Start 02/26/17 at 16:00 Sodium Chloride (NS) 1,000 ml @ 125 mls/hr Q8H IV Last administered on 10:35; Admin Dose 125 MLS/HR; Start 02/26/17 at 20:00 Diagnostic Test (Pha) (Accu-Chek) 1 ea 02 XX Last administered on 02/27/17 06: 20; Admin Dose 1 EA; Start 02/27/17 at 02:00 Miscellaneous Information 1 ea NOTE XX ; Start 02/26/17 at 21:00 Glucose (Glutose) 15 gm Q15M PRN PO DECREASED GLUCOSE; Start 02/26/17 at 21:00 Glucose (Glutose) 22.5 gm Q15M PRN PO DECREASED GLUCOSE; Start 02/26/17 at 21: 00 Dextrose (D50w Syringe) 25 ml Q15M PRN IV DECREASED GLUCOSE; Start 8/23/17 at 21:00 Dextrose (D50w Syringe) 50 ml Q15M PRN IV DECREASED GLUCOSE; Start 02/26/17 at 21:00 Glucagon (Glucagen) 1 mg Q15M PRN IM DECREASED GLUCOSE; Start 02/26/17 at 21:00 Glucose (Glutose) 15 gm Q15M PRN BUCCAL DECREASED GLUCOSE; Start 02/26/17 at 21 :00 Miscellaneous Information This patient le... PRN PRN XX WOUND CARE; Start 02/27 at 03:30 Vancomycin HCl (Vancocin) 250 ml @ 125 mls/hr ONCE IVPB ; Start 02/27/17 at 11: 00; Stop 02/27/17 at 14:00 TR GOODEN MD Feb 27, 2017 11:59
[2017-02-27] MEDS ORDERED: IOHEXOL 14.3 MG(I)/ML (ADULT) BTL PO ONE ×2 (12:00→12:30)
[2017-02-27] MEDS ORDERED: POTASSIUM CHLORIDE 10 MEQ in DEXTROSE 5%-0.9% NACL 1,000 ML IV SCH (13:00)
--- NOTE | 2017-02-27 13:28 | CONS ---
Date/Time of Note Date/Time of Note DATE: 02/27/17 TIME: 13:10 Assessment/Plan Assessment/Plan Chief Complaint/Hosp Course 1. Acute Renal Failure , she has prerenal azotemia . She has some peripheral edema , but low serum albumin . Will continue IV fluid with dextrose since she is off tube feeing . Will check urine sodium . 2. Abdominal abscess , LUQ , due to leaking from stomach . CAT scan ordered with oral contrast . 3. ASHD , h/o cardiac arrest and acute RI in September 2016 . 4. DM , blood sugars are high , will adjust insulin dose 5. h/o CKD , was on dialysis 6. anemia 7. UTI with sepsis 8. h/o acute cholecystitis with cholecystotomy tube which seems to have become dislodged Problems: Consultation Date/Type/Reason Admit Date/Time Feb 26, 2017 at 13:57 Initial Consult Date 02/27/17 Type of Consultation: renal 24 HR Interval Summary Free Text/Dictation She is awake and responsive . She denies pain . she is lethargic and in bed . Exam/Review of Systems Vital Signs Vitals Vital Signs Date Time Temp Pulse Resp B/P Pulse Ox O2 Delivery O2 Flow Rate FiO2 02/27/17 12:38 106 02/27/17 11:37 98.0 18 104/58 99 02/27/17 11:11 Nasal Cannula 3.0 Intake and Output 02/26/17 02/26/17 02/27/17 14:59 22:59 06:59 Intake Total 50 ml 1445 ml Output Total 600 ml 300 ml Balance 50 ml -600 ml 1145 ml Exam Constitutional: alert, frail, obese Neck: supple Respiratory: clear to auscultation, diminished breath sounds Cardiovascular: edema, regular rate and rhythm Extremities: edema Results Result Diagram: 02/27/17 0747 02/27/17 0747 Results 24 hrs Laboratory Tests Test 02/26/17 13:37 02/26/17 14:36 02/26/17 14:40 02/26/17 17:30 Bedside Glucose 213 256 H Lactic Acid Level 2.2 *H 2.0 Test 02/26/17 21:16 02/27/17 06:25 02/27/17 07:47 02/27/17 10:28 Bedside Glucose 201 361 H 383 H White Blood Count 13.9 #H Red Blood Count 2.99 L Hemoglobin 8.2 L Hematocrit 27.9 L Mean Corpuscular Volume 93.3 Mean Corpuscular Hemoglobin 27.4 L Mean Corpuscular Hemoglobin Concent 29.4 L Red Cell Distribution Width 17.0 H Platelet Count 444 H Mean Platelet Volume 10.3 Neutrophils % 78.8 H Lymphocytes % 6.3 L Monocytes % 12.9 H Eosinophils % 0.9 Basophils % 0.1 Nucleated Red Blood Cells % 0.0 Neutrophils # (Manual) 11 H Lymphocytes # 0.9 Monocytes # 1.8 H Eosinophils # 0.1 Basophils # 0.0 Nucleated Red Blood Cells # 0.0 Sodium Level Pending Potassium Level 5.7 H Chloride Level 93 L Carbon Dioxide Level 29 Anion Gap 13 Blood Urea Nitrogen 82 H Creatinine 0.94 Glucose Level 307 H Lactic Acid Level 1.3 Calcium Level 9.0 Phosphorus Level 5.1 H Magnesium Level 2.0 Test 02/27/17 12:35 Bedside Glucose 373 H Medications Medications Current Medications Ondansetron HCl (Zofran Inj) 4 mg Q6H PRN IV NAUSEA AND/OR VOMITING; Start at 16:00 Diagnostic Test (Pha) (Accu-Chek) 1 ea 02 XX Last administered on 02/27/17t 06: 20; Admin Dose 1 EA; Start 02/27/17 at 02:00 Miscellaneous Information 1 ea NOTE XX ; Start 02/26/17 at 21:00 Glucose (Glutose) 15 gm Q15M PRN PO DECREASED GLUCOSE; Start 02/26/17 at 21:00 Glucose (Glutose) 22.5 gm Q15M PRN PO DECREASED GLUCOSE; Start 02/26/17 at 21: 00 Dextrose (D50w Syringe) 25 ml Q15M PRN IV DECREASED GLUCOSE; Start 02/26/17 at 21:00 Dextrose (D50w Syringe) 50 ml Q15M PRN IV DECREASED GLUCOSE; Start 02/26/17 at 21:00 Glucagon (Glucagen) 1 mg Q15M PRN IM DECREASED GLUCOSE; Start 02/26/17 at 21:00 Glucose (Glutose) 15 gm Q15M PRN BUCCAL DECREASED GLUCOSE; Start 02/26/17 at 21 :00 Miscellaneous Information This patient le... PRN PRN XX WOUND CARE; Start 02/27 at 03:30 Vancomycin HCl 250 ml @ 125 mls/hr ONCE IVPB Last administered on 02/27/17t 12 :17; Admin Dose 125 MLS/HR; Start 02/27/17 at 11:00; Stop 02/27/17 at 14:00 Meropenem/Sodium Chloride (Merrem 1 Gm/50 ml (Pmx)) 50 ml @ 100 mls/hr Q8 IVPB ; Start 02/27/17 at 14:00 Diagnostic Test (Pha) (Accu-Chek) 1 ea 02 XX ; Start 02/28/17 at 02:00 Diagnostic Test (Pha) 1 ea 1 ea 02 XX ; Start 02/28/17 at 02:00 Potassium Chloride/Dextrose/ Sodium Chloride (KCl/D5-NS) 1,005 ml @ 100 mls/hr Q10H3M IV ; Start 02/27/17 at 13:00 DAMIR MARTINEZ MD Feb 27, 2017 13:28
[2017-02-27] MEDS ORDERED: DEXTROSE 5%-0.9% NACL 1,000 ML IV SCH (13:30)
[2017-02-27] MEDS ORDERED: MEROPENEM 1 GM in SOD CHLORIDE 0.9% 100 ML IVPB SCH (14:00)
[2017-02-27] MEDS: MEROPENEM 1 GM/50ML(PMX) 50 ML IVPB SCH ×2 (14:17→20:21)
[2017-02-27] MEDS: DEXTROSE 5%-0.9% NACL 1,000 ML IV SCH ×2 (14:18→20:27)
[2017-02-27 15:59] LABS: ALBUMIN 2.4 g/dl (3.3-4.9); ALBUMIN/GLOBULIN RATIO 0.63; CALCIUM 9.3 mg/dl (8.4-10.2); CREATININE 0.98 mg/dl (0.44-1.00); POTASSIUM 5.5 mmol/L (3.5-5.1); TOTAL PROTEIN 6.2 g/dl (6.1-8.1)
[2017-02-27 16:11] LABS: IRON 21 ug/dl (35-150)
[2017-02-27 16:20] LABS: TOTAL IRON BINDING CAPACITY 142 ug/dl (241-421)
[2017-02-27] MEDS ORDERED: NA POLYST SULFON 15 GM/60 ML BTL PO SCH ×2 (16:30→18:00)
[2017-02-27] MEDS ORDERED: NA PHOSPHATE/BIPHOS 133 ML ENEMA PR ONE (18:30)
[2017-02-27] MEDS: EPOETIN 10000 UNITS/1 ML INJ (ESRD) SC SCH (18:46)
[2017-02-27] MEDS ORDERED: INSULIN GLARGINE [LANtus] 3 ML PEN SC SCH (20:00)
[2017-02-28] VITALS (11 sets, daily range): BP systolic 102–128; BP diastolic 48–60; PULSE 92–150; RESP 16–20
[2017-02-28] MEDS: PANTOPRAZOLE 40 MG INJ IV SCH (02:00)
[2017-02-28] MEDS: ACCU-CHEK XX SCH (02:00)
[2017-02-28] MEDS ORDERED: ACCU-CHEK XX SCH (02:00)
[2017-02-28] MEDS: MEROPENEM 1 GM/50ML(PMX) 50 ML IVPB SCH ×3 (06:15→21:41)
[2017-02-28 07:32] LABS: BASOPHILS % 0.2 % (0.0-2.0); EOSINOPHILS # 0.2 10^3/ul (0.0-0.5); EOSINOPHILS % 1.6 % (0.0-7.0); HEMATOCRIT 30.4 % (37.0-47.0); LYMPHOCYTES # 0.8 10^3/ul (0.8-2.9); LYMPHOCYTES % 7.8 % (15.0-51.0); MEAN CORPUSCULAR HGB CONC 29.6 g/dl (32.0-37.0); MEAN CORPUSCULAR VOLUME 94.4 fl (82.0-101.0); MONOCYTE # 1.3 10^3/ul (0.3-0.9); MONOCYTES % 12.3 % (0.0-11.0); NEUTROPHILS % 76.9 % (39.0-77.0); PLATELET COUNT 534 10^3/UL (140-415); RED BLOOD COUNT 3.22 10^6/ul (4.20-5.40); RED CELL DISTRIBUTION WIDTH 16.7 % (11.5-14.5); WHITE BLOOD COUNT 10.6 10^3/ul (4.8-10.8)
[2017-02-28 07:35] LABS: POSITIVE DIFF @See below
--- NOTE | 2017-02-28 08:07 | CONS ---
Date/Time of Note Date/Time of Note DATE: 02/28/17 TIME: 08:03 Assessment/Plan Assessment/Plan Chief Complaint/Hosp Course 1) CAD 2) coronary angioplasty status 3) [place] 09/20 4) Preserved LV function 5) Sepsis 6) Abdominal wall abscess 7) CKD w h/o HD Problems: Additional Assessment/Plan unclear why patient is of DAPT, was dc'ed on Plavix post [place] in 09/20 but does not seem to be part of her meds every since. Will not restart today given possible urgent anticipated surgical procedure in presence of sepsis. Consultation Date/Type/Reason Admit Date/Time Feb 26, 2017 at 13:57 Initial Consult Date 02/27/17 Type of Consultation: cv 24 HR Interval Summary Free Text/Dictation resting comfortably, no chest pain or sob Detailed Summary Respiratory: no complaints Cardiovascular: no complaints Gastrointestinal: no complaints Musculoskeletal: no complaints Skin: no complaints Neurologic: no complaints Exam/Review of Systems Vital Signs Vitals Vital Signs Date Time Temp Pulse Resp B/P Pulse Ox O2 Delivery O2 Flow Rate FiO2 02/28/17 07:50 98.0 76 20 105/51 95 02/28/17 01:58 3.0 02/27/17 20:56 Nasal Cannula Intake and Output 02/27/17 02/27/17 02/28/17 15:00 23:00 07:00 Intake Total 1310 ml 300 ml 1000 ml Output Total 75 ml 125 ml 550 ml Balance 1235 ml 175 ml 450 ml Exam Constitutional: frail Head: atraumatic, normocephalic Neck: supple Respiratory: clear to auscultation Cardiovascular: regular rate and rhythm Gastrointestinal: soft Results Result Diagram: 02/28/17 0715 02/27/17 1522 Results 24 hrs Laboratory Tests Test 02/27/17 10:28 02/27/17 12:35 02/27/17 15:16 02/27/17 15:22 Bedside Glucose 383 H 373 H Potassium Level 5.5 H 5.5 H Iron Level 21 L Total Iron Binding Capacity 142 L Percent Iron Saturation 15 L Ferritin 1150.0 H Sodium Level 134 L Chloride Level 93 L Carbon Dioxide Level 30 Anion Gap 17 H Blood Urea Nitrogen 81 H Creatinine 0.98 Glucose Level 294 H Calcium Level 9.3 Total Bilirubin 0.0 L Direct Bilirubin 0.00 Indirect Bilirubin 0.0 Aspartate Amino Transf (AST/SGOT) 21 Alanine Aminotransferase (ALT/SGPT) 35 Alkaline Phosphatase 284 H Total Protein 6.2 Albumin 2.4 L Globulin 3.80 H Albumin/Globulin Ratio 0.63 Test 02/27/17 18:50 02/28/17 07:15 Bedside Glucose 323 H White Blood Count 10.6 # Red Blood Count 3.22 L Hemoglobin 9.0 L Hematocrit 30.4 L Mean Corpuscular Volume 94.4 Mean Corpuscular Hemoglobin 28.0 L Mean Corpuscular Hemoglobin Concent 29.6 L Red Cell Distribution Width 16.7 H Platelet Count 534 #H Mean Platelet Volume 10.0 Neutrophils % 76.9 Lymphocytes % 7.8 L Monocytes % 12.3 H Eosinophils % 1.6 Basophils % 0.2 Nucleated Red Blood Cells % 0.0 Neutrophils # (Manual) 8.1 H Lymphocytes # 0.8 Monocytes # 1.3 H Eosinophils # 0.2 Basophils # 0.0 Nucleated Red Blood Cells # 0.0 Medications Medications Current Medications Ondansetron HCl (Zofran Inj) 4 mg Q6H PRN IV NAUSEA AND/OR VOMITING; Start at 16:00 Miscellaneous Information 1 ea NOTE XX ; Start 02/26/17 at 21:00 Glucose (Glutose) 15 gm Q15M PRN PO DECREASED GLUCOSE; Start 02/26/17 at 21:00 Glucose (Glutose) 22.5 gm Q15M PRN PO DECREASED GLUCOSE; Start 02/26/17 at 21: 00 Dextrose (D50w Syringe) 25 ml Q15M PRN IV DECREASED GLUCOSE; Start 02/26/17 at 21:00 Dextrose (D50w Syringe) 50 ml Q15M PRN IV DECREASED GLUCOSE; Start 02/26/17 at 21:00 Glucagon (Glucagen) 1 mg Q15M PRN IM DECREASED GLUCOSE; Start 02/26/17 at 21:00 Glucose (Glutose) 15 gm Q15M PRN BUCCAL DECREASED GLUCOSE; Start 02/26/17 at 21 :00 Miscellaneous Information This patient le... PRN PRN XX WOUND CARE; Start 02/27 at 03:30 Meropenem/Sodium Chloride (Merrem 1 Gm/50 ml (Pmx)) 50 ml @ 100 mls/hr Q8 IVPB Last administered on 02/28/17t 06:15; Admin Dose 100 MLS/HR; Start 02/27/17 at 14:00 Diagnostic Test (Pha) (Accu-Chek) 1 ea 02 XX ; Start 02/28/17 at 02:00 Insulin Glargine 20 unit 20 unit DAILY@20 SC Last administered on 02/27/17 20: 30; Admin Dose 20 UNIT; Start 02/27/17 at 20:00 Dextrose/Sodium Chloride (D5-NS) 1,000 ml @ 100 mls/hr Q10H IV Last administered on 02/27/17 20:27; Admin Dose 100 MLS/HR; Start 02/27/17 at 13:30 Epoetin Raj (Epogen (Esrd)) 10,000 units TuThSa@17 SC Last administered on 18:46; Admin Dose 10,000 UNITS; Start 02/27/17 at 17:00 Pantoprazole (Protonix Iv) 40 mg DAILY@02 IV Last administered on 02/28/17 02: 00; Admin Dose 40 MG; Start 02/28/17 at 02:00 ASTRID RIVAS MD Feb 28, 2017 08:07
[2017-02-28 08:18] LABS: ALBUMIN 2.5 g/dl (3.3-4.9); ALBUMIN/GLOBULIN RATIO 0.64; CALCIUM 9.3 mg/dl (8.4-10.2); CREATININE 0.95 mg/dl (0.44-1.00); MAGNESIUM 2.1 mg/dl (1.7-2.5); TOTAL PROTEIN 6.4 g/dl (6.1-8.1)
[2017-02-28 08:27] LABS: POTASSIUM 5.3 mmol/L (3.5-5.1)
[2017-02-28] MEDS: ALBUTEROL/IPRATROPIUM (NEB) 3 ML AMP HHN SCH ×3 (08:37→20:15)
[2017-02-28] MEDS: DEXTROSE 5%-0.9% NACL 1,000 ML IV SCH ×2 (08:43→21:41)
[2017-02-28] MEDS: INSULIN ASPART [NOVOLOG] 3 ML PEN SC SCH ×4 (08:47→21:00)
--- NOTE | 2017-02-28 09:43 | CONS ---
Date/Time of Note Date/Time of Note DATE: 02/28/17 TIME: 09:39 Assessment/Plan Assessment/Plan Chief Complaint/Hosp Course 1. Acute Renal Failure , she has prerenal azotemia , which is slightly better today . She has some peripheral edema , but low serum albumin . Will continue IV fluid with dextrose since she is off tube feeing . Will check urine sodium . 2. Abdominal abscess , LUQ , due to leaking from stomach . CAT scan ordered with oral contrast . 3. ASHD , h/o cardiac arrest and acute AK in September 2016 . 4. DM , blood sugars are high , will adjust insulin dose 5. h/o CKD , was on dialysis 6. anemia 7. UTI with sepsis 8. h/o acute cholecystitis with cholecystotomy tube which seems to have become dislodged Problems: Consultation Date/Type/Reason Admit Date/Time Feb 26, 2017 at 13:57 Initial Consult Date 02/27/17 Type of Consultation: renal 24 HR Interval Summary Free Text/Dictation She is lethargic but does rouse to verbal stimuli . she denies pain . she was to have a IR procedure yesterday to drain abdominal abscess , was cancelled Constitutional: no complaints Exam/Review of Systems Vital Signs Vitals Vital Signs Date Time Temp Pulse Resp B/P Pulse Ox O2 Delivery O2 Flow Rate FiO2 02/28/17 09:18 150 02/28/17 07:50 98.0 20 105/51 95 02/28/17 01:58 3.0 02/27/17 20:56 Nasal Cannula Intake and Output 02/27/17 02/27/17 02/28/17 15:00 23:00 07:00 Intake Total 1310 ml 300 ml 1000 ml Output Total 75 ml 125 ml 550 ml Balance 1235 ml 175 ml 450 ml Exam Constitutional: alert, frail, obese, oriented Neck: non-tender, supple Respiratory: clear to auscultation, diminished breath sounds Cardiovascular: regular rate and rhythm Gastrointestinal: nl liver, spleen, soft, tender Extremities: edema Results Result Diagram: 02/28/17 0715 02/28/17 0715 Results 24 hrs Laboratory Tests Test 02/27/17 10:28 02/27/17 12:35 02/27/17 15:16 02/27/17 15:22 Bedside Glucose 383 H 373 H Potassium Level 5.5 H 5.5 H Iron Level 21 L Total Iron Binding Capacity 142 L Percent Iron Saturation 15 L Ferritin 1150.0 H Sodium Level 134 L Chloride Level 93 L Carbon Dioxide Level 30 Anion Gap 17 H Blood Urea Nitrogen 81 H Creatinine 0.98 Glucose Level 294 H Calcium Level 9.3 Total Bilirubin 0.0 L Direct Bilirubin 0.00 Indirect Bilirubin 0.0 Aspartate Amino Transf (AST/SGOT) 21 Alanine Aminotransferase (ALT/SGPT) 35 Alkaline Phosphatase 284 H Total Protein 6.2 Albumin 2.4 L Globulin 3.80 H Albumin/Globulin Ratio 0.63 Test 02/27/17 18:50 02/28/17 07:15 02/28/17 08:27 Bedside Glucose 323 H 241 H White Blood Count 10.6 # Red Blood Count 3.22 L Hemoglobin 9.0 L Hematocrit 30.4 L Mean Corpuscular Volume 94.4 Mean Corpuscular Hemoglobin 28.0 L Mean Corpuscular Hemoglobin Concent 29.6 L Red Cell Distribution Width 16.7 H Platelet Count 534 #H Mean Platelet Volume 10.0 Neutrophils % 76.9 Lymphocytes % 7.8 L Monocytes % 12.3 H Eosinophils % 1.6 Basophils % 0.2 Nucleated Red Blood Cells % 0.0 Neutrophils # (Manual) 8.1 H Lymphocytes # 0.8 Monocytes # 1.3 H Eosinophils # 0.2 Basophils # 0.0 Nucleated Red Blood Cells # 0.0 Sodium Level 140 Potassium Level 5.3 H Chloride Level 98 Carbon Dioxide Level 29 Anion Gap 18 H Blood Urea Nitrogen 75 H Creatinine 0.95 Glucose Level 243 H Calcium Level 9.3 Magnesium Level 2.1 Total Bilirubin 0.0 L Direct Bilirubin 0.00 Indirect Bilirubin 0.0 Aspartate Amino Transf (AST/SGOT) 19 Alanine Aminotransferase (ALT/SGPT) 27 Alkaline Phosphatase 249 H Total Protein 6.4 Albumin 2.5 L Globulin 3.90 H Albumin/Globulin Ratio 0.64 Medications Medications Current Medications Ondansetron HCl (Zofran Inj) 4 mg Q6H PRN IV NAUSEA AND/OR VOMITING; Start at 16:00 Miscellaneous Information 1 ea NOTE XX ; Start 02/26/17 at 21:00 Glucose (Glutose) 15 gm Q15M PRN PO DECREASED GLUCOSE; Start 02/26/17 at 21:00 Glucose (Glutose) 22.5 gm Q15M PRN PO DECREASED GLUCOSE; Start 02/26/17 at 21: 00 Dextrose (D50w Syringe) 25 ml Q15M PRN IV DECREASED GLUCOSE; Start 02/26/17 at 21:00 Dextrose (D50w Syringe) 50 ml Q15M PRN IV DECREASED GLUCOSE; Start 02/26/17 at 21:00 Glucagon (Glucagen) 1 mg Q15M PRN IM DECREASED GLUCOSE; Start 02/26/17 at 21:00 Glucose (Glutose) 15 gm Q15M PRN BUCCAL DECREASED GLUCOSE; Start 02/26/17 at 21 :00 Miscellaneous Information This patient le... PRN PRN XX WOUND CARE; Start 02/27 at 03:30 Meropenem/Sodium Chloride (Merrem 1 Gm/50 ml (Pmx)) 50 ml @ 100 mls/hr Q8 IVPB Last administered on 02/28/17 06:15; Admin Dose 100 MLS/HR; Start 02/27/17 at 14:00 Diagnostic Test (Pha) (Accu-Chek) 1 ea 02 XX ; Start 02/28/17 at 02:00 Insulin Glargine 20 unit 20 unit DAILY@20 SC Last administered on 02/27/17 20: 30; Admin Dose 20 UNIT; Start 02/27/17 at 20:00 Dextrose/Sodium Chloride (D5-NS) 1,000 ml @ 100 mls/hr Q10H IV Last administered on 02/28/17 08:43; Admin Dose 100 MLS/HR; Start 02/27/17 at 13:30 Epoetin Raj (Epogen (Esrd)) 10,000 units TuThSa@17 SC Last administered on 18:46; Admin Dose 10,000 UNITS; Start 02/27/17 at 17:00 Pantoprazole (Protonix Iv) 40 mg DAILY@02 IV Last administered on 02/28/17 02: 00; Admin Dose 40 MG; Start 02/28/17 at 02:00 DAMIR MARTINEZ MD Feb 28, 2017 09:43
--- NOTE | 2017-02-28 10:19 | CONS ---
Date/Time of Note Date/Time of Note DATE: 02/28/17 TIME: 10:08 Assessment/Plan Assessment/Plan Chief Complaint/Hosp Course 1) UTI, kleb +ESBL in urine change zosyn to merrem await final report on urine cx 02/28 - kleb +ESBL present in urine cx continue with merrem 2) hx of choleycystitis on CT the gall bladder looks ok re-consult dr. lomax to see if drainage tube can be removed 3) abd wall fluid collection this tracks down to the pelvis and likely emanates from the g-tube will order CT abd with oral contrast via the PEG cx from around the g-tube pt may need surgical intervention for this will consider WBC scan continue with vanco/merrem get nasal swab for MRSA 02/28 - pt to get fluid collection surgically drained when she is medically cleared continue with vanco/merrem 4) CAD hx of CABG 5) hx of anoxic encephalopathy 02/28 - pt is back to baseline Problems: Consultation Date/Type/Reason Admit Date/Time Feb 26, 2017 at 13:57 Initial Consult Date 02/27/17 Type of Consultation: ID 24 HR Interval Summary Free Text/Dictation pt denies pain around g-tube site she had a BM no V, tube feeds Exam/Review of Systems Vital Signs Vitals Vital Signs Date Time Temp Pulse Resp B/P Pulse Ox O2 Delivery O2 Flow Rate FiO2 02/28/17 09:18 150 02/28/17 07:50 98.0 20 105/51 95 02/28/17 01:58 3.0 02/27/17 20:56 Nasal Cannula Intake and Output 02/27/17 02/27/17 02/28/17 15:00 23:00 07:00 Intake Total 1310 ml 300 ml 1000 ml Output Total 75 ml 125 ml 550 ml Balance 1235 ml 175 ml 450 ml Exam Constitutional: alert, oriented Eyes: nl sclera ENMT: mucosa pink and moist Respiratory: clear to auscultation Cardiovascular: regular rate and rhythm Gastrointestinal: other (firmness along R lower flank), soft Results Result Diagram: 02/28/17 0715 02/28/17 0715 Results 24 hrs Laboratory Tests Test 02/27/17 10:28 02/27/17 12:35 02/27/17 15:16 02/27/17 15:22 Bedside Glucose 383 H 373 H Potassium Level 5.5 H 5.5 H Iron Level 21 L Total Iron Binding Capacity 142 L Percent Iron Saturation 15 L Ferritin 1150.0 H Sodium Level 134 L Chloride Level 93 L Carbon Dioxide Level 30 Anion Gap 17 H Blood Urea Nitrogen 81 H Creatinine 0.98 Glucose Level 294 H Calcium Level 9.3 Total Bilirubin 0.0 L Direct Bilirubin 0.00 Indirect Bilirubin 0.0 Aspartate Amino Transf (AST/SGOT) 21 Alanine Aminotransferase (ALT/SGPT) 35 Alkaline Phosphatase 284 H Total Protein 6.2 Albumin 2.4 L Globulin 3.80 H Albumin/Globulin Ratio 0.63 Test 02/27/17 18:50 02/28/17 07:15 02/28/17 08:27 Bedside Glucose 323 H 241 H White Blood Count 10.6 # Red Blood Count 3.22 L Hemoglobin 9.0 L Hematocrit 30.4 L Mean Corpuscular Volume 94.4 Mean Corpuscular Hemoglobin 28.0 L Mean Corpuscular Hemoglobin Concent 29.6 L Red Cell Distribution Width 16.7 H Platelet Count 534 #H Mean Platelet Volume 10.0 Neutrophils % 76.9 Lymphocytes % 7.8 L Monocytes % 12.3 H Eosinophils % 1.6 Basophils % 0.2 Nucleated Red Blood Cells % 0.0 Neutrophils # (Manual) 8.1 H Lymphocytes # 0.8 Monocytes # 1.3 H Eosinophils # 0.2 Basophils # 0.0 Nucleated Red Blood Cells # 0.0 Sodium Level 140 Potassium Level 5.3 H Chloride Level 98 Carbon Dioxide Level 29 Anion Gap 18 H Blood Urea Nitrogen 75 H Creatinine 0.95 Glucose Level 243 H Calcium Level 9.3 Magnesium Level 2.1 Total Bilirubin 0.0 L Direct Bilirubin 0.00 Indirect Bilirubin 0.0 Aspartate Amino Transf (AST/SGOT) 19 Alanine Aminotransferase (ALT/SGPT) 27 Alkaline Phosphatase 249 H Total Protein 6.4 Albumin 2.5 L Globulin 3.90 H Albumin/Globulin Ratio 0.64 Medications Medications Current Medications Ondansetron HCl (Zofran Inj) 4 mg Q6H PRN IV NAUSEA AND/OR VOMITING; Start at 16:00 Miscellaneous Information 1 ea NOTE XX ; Start 02/26/17 at 21:00 Glucose (Glutose) 15 gm Q15M PRN PO DECREASED GLUCOSE; Start 02/26/17 at 21:00 Glucose (Glutose) 22.5 gm Q15M PRN PO DECREASED GLUCOSE; Start 02/26/17 at 21: 00 Dextrose (D50w Syringe) 25 ml Q15M PRN IV DECREASED GLUCOSE; Start 02/26/17 at 21:00 Dextrose (D50w Syringe) 50 ml Q15M PRN IV DECREASED GLUCOSE; Start 02/26/17 at 21:00 Glucagon (Glucagen) 1 mg Q15M PRN IM DECREASED GLUCOSE; Start 02/26/17 at 21:00 Glucose (Glutose) 15 gm Q15M PRN BUCCAL DECREASED GLUCOSE; Start 02/26/17 at 21 :00 Miscellaneous Information This patient le... PRN PRN XX WOUND CARE; Start 02/27 at 03:30 Meropenem/Sodium Chloride (Merrem 1 Gm/50 ml (Pmx)) 50 ml @ 100 mls/hr Q8 IVPB Last administered on 02/28/17 06:15; Admin Dose 100 MLS/HR; Start 02/27/17 at 14:00 Diagnostic Test (Pha) (Accu-Chek) 02 XX ; Start 02/28/17 at 02:00 Insulin Glargine 20 unit 20 unit DAILY@20 SC Last administered on 02/27/17 20: 30; Admin Dose 20 UNIT; Start 02/27/17 at 20:00 Dextrose/Sodium Chloride (D5-NS) 1,000 ml @ 75 mls/hr [id number] IV Last administered on 02/28/17 08:43; Admin Dose 100 MLS/HR; Start 02/27/17 at 13:30 Epoetin Raj (Epogen (Esrd)) 10,000 units TuThSa@17 SC Last administered on 18:46; Admin Dose 10,000 UNITS; Start 02/27/17 at 17:00 Pantoprazole (Protonix Iv) 40 mg DAILY@02 IV Last administered on 02/28/17 02: 00; Admin Dose 40 MG; Start 02/28/17 at 02:00 TR GOODEN MD Feb 28, 2017 10:18
[2017-02-28] MEDS ORDERED: DEXTROSE 50% 50 ML SYRINGE IV ONE (10:30)
[2017-02-28] MEDS ORDERED: INSULIN REGULAR, HUMAN 100 UNIT/1 ML 3ML VIAL IV ONE (10:30)
[2017-02-28] MEDS ORDERED: NA BICARBONATE 8.4% 50 ML SYG IV ONE (10:30)
--- NOTE | 2017-02-28 10:46 | CONS ---
Date/Time of Note Date/Time of Note DATE: 02/28/17 TIME: 10:44 Assessment/Plan Assessment/Plan Additional Assessment/Plan Assessment recommendations; 1. Patient admitted with UTI and sepsis with interval improvement. 2. History of recent cholecystectomy with AMBROSE drain in place. 3. Chronic renal failure, on hemodialysis. 4. Generalized deconditioning. 5. Anemia. 6. Mild persistent pulmonary edema. Continue current supportive care. She may need to be more aggressively dialyzed for fluid overload. Consultation Date/Type/Reason Admit Date/Time Feb 26, 2017 at 13:57 Type of Consultation: Pulmonary 24 HR Interval Summary Free Text/Dictation Patient's condition is stable. Remains awake and alert. Has remained hemodynamically stable. General exam; elderly woman, currently in no distress. Exam/Review of Systems Vital Signs Vitals Vital Signs Date Time Temp Pulse Resp B/P Pulse Ox O2 Delivery O2 Flow Rate FiO2 02/28/17 09:18 150 02/28/17 07:50 98.0 20 105/51 95 02/28/17 01:58 3.0 02/27/17 20:56 Nasal Cannula Intake and Output 02/27/17 02/27/17 02/28/17 15:00 23:00 07:00 Intake Total 1310 ml 300 ml 1000 ml Output Total 75 ml 125 ml 550 ml Balance 1235 ml 175 ml 450 ml Exam HEENT exam; supple neck, positive JVD. No lymphadenopathy. Midline trachea. No thyromegaly. Chest exam; diminished but clear breath sounds. S1-S2 audible, no murmurs. Regular rhythm. Abdomen exam; soft, nontender. No organomegaly. Bowel sounds audible. Right upper quadrant AMBROSE drain in place. Extremity exam; trace generalized edema. Patient has a multiple ecchymosis involving all 4 extremities. CUT PRESSMAN exam; no focal motor deficit. Patient however exhibiting generalized weakness. Results Result Diagram: 02/28/17 0715 02/28/17 0715 Results 24 hrs Laboratory Tests Test 02/27/17 12:35 02/27/17 15:16 02/27/17 15:22 02/27/17 18:50 Bedside Glucose 373 H 323 H Potassium Level 5.5 H 5.5 H Iron Level 21 L Total Iron Binding Capacity 142 L Percent Iron Saturation 15 L Ferritin 1150.0 H Sodium Level 134 L Chloride Level 93 L Carbon Dioxide Level 30 Anion Gap 17 H Blood Urea Nitrogen 81 H Creatinine 0.98 Glucose Level 294 H Calcium Level 9.3 Total Bilirubin 0.0 L Direct Bilirubin 0.00 Indirect Bilirubin 0.0 Aspartate Amino Transf (AST/SGOT) 21 Alanine Aminotransferase (ALT/SGPT) 35 Alkaline Phosphatase 284 H Total Protein 6.2 Albumin 2.4 L Globulin 3.80 H Albumin/Globulin Ratio 0.63 Test 02/28/17 07:15 02/28/17 08:27 White Blood Count 10.6 # Red Blood Count 3.22 L Hemoglobin 9.0 L Hematocrit 30.4 L Mean Corpuscular Volume 94.4 Mean Corpuscular Hemoglobin 28.0 L Mean Corpuscular Hemoglobin Concent 29.6 L Red Cell Distribution Width 16.7 H Platelet Count 534 #H Mean Platelet Volume 10.0 Neutrophils % 76.9 Lymphocytes % 7.8 L Monocytes % 12.3 H Eosinophils % 1.6 Basophils % 0.2 Nucleated Red Blood Cells % 0.0 Neutrophils # (Manual) 8.1 H Lymphocytes # 0.8 Monocytes # 1.3 H Eosinophils # 0.2 Basophils # 0.0 Nucleated Red Blood Cells # 0.0 Sodium Level 140 Potassium Level 5.3 H Chloride Level 98 Carbon Dioxide Level 29 Anion Gap 18 H Blood Urea Nitrogen 75 H Creatinine 0.95 Glucose Level 243 H Calcium Level 9.3 Magnesium Level 2.1 Total Bilirubin 0.0 L Direct Bilirubin 0.00 Indirect Bilirubin 0.0 Aspartate Amino Transf (AST/SGOT) 19 Alanine Aminotransferase (ALT/SGPT) 27 Alkaline Phosphatase 249 H Total Protein 6.4 Albumin 2.5 L Globulin 3.90 H Albumin/Globulin Ratio 0.64 Bedside Glucose 241 H Medications Medications Current Medications Ondansetron HCl (Zofran Inj) 4 mg Q6H PRN IV NAUSEA AND/OR VOMITING; Start at 16:00 Miscellaneous Information 1 ea NOTE XX ; Start 02/26/17 at 21:00 Glucose (Glutose) 15 gm Q15M PRN PO DECREASED GLUCOSE; Start 02/26/17 at 21:00 Glucose (Glutose) 22.5 gm Q15M PRN PO DECREASED GLUCOSE; Start 02/26/17 at 21: 00 Dextrose (D50w Syringe) 25 ml Q15M PRN IV DECREASED GLUCOSE; Start 02/26/17 at 21:00 Dextrose (D50w Syringe) 50 ml Q15M PRN IV DECREASED GLUCOSE; Start 02/26/17 at 21:00 Glucagon (Glucagen) 1 mg Q15M PRN IM DECREASED GLUCOSE; Start 02/26/17 at 21:00 Glucose (Glutose) 15 gm Q15M PRN BUCCAL DECREASED GLUCOSE; Start 02/26/17 at 21 :00 Miscellaneous Information This patient le... PRN PRN XX WOUND CARE; Start 02/27 at 03:30 Meropenem/Sodium Chloride (Merrem 1 Gm/50 ml (Pmx)) 50 ml @ 100 mls/hr Q8 IVPB Last administered on 02/28/17 06:15; Admin Dose 100 MLS/HR; Start 02/27/17 at 14:00 Diagnostic Test (Pha) (Accu-Chek) XX ; Start 02/28/17 at 02:00 Insulin Glargine 20 unit 20 unit DAILY@20 SC Last administered on 02/27/17 20: 30; Admin Dose 20 UNIT; Start 02/27/17 at 20:00 Dextrose/Sodium Chloride (D5-NS) 1,000 ml @ 75 mls/hr [id number] IV Last administered on 02/28/17 08:43; Admin Dose 100 MLS/HR; Start 02/27/17 at 13:30 Epoetin Raj (Epogen (Esrd)) 10,000 units TuThSa@17 SC Last administered on 18:46; Admin Dose 10,000 UNITS; Start 02/27/17 at 17:00 Pantoprazole 40 mg 40 mg DAILY@02 IV Last administered on 02/28/17 02:00; Admin Dose 40 MG; Start 02/28/17 at 02:00 Calcium Gluconate/ Sodium Chloride (Ca Gluc/NS) 110 ml @ 110 mls/hr ONCE IVPB ; Start 02/28/17 at 11:30; Stop 02/28/17 at 12:29 Miscellaneous Information (*Rx Drug Level Order Reminder*) VANCOMYCIN RANDOM ON 02/05... ONCE ONCE XX ; Start 03/01/17 at 05:00; Stop 03/01/17 at 05:01 ADIS CAMACHO Feb 28, 2017 10:46
[2017-02-28] MEDS ORDERED: CALCIUM GLUCONATE 10% 1 GM in SOD CHLORIDE 0.9% 100 ML IVPB SCH (11:30)
--- NOTE | 2017-02-28 13:21 | HP ---
Date/Time of Note Date/Time of Note DATE: 02/26/17 TIME: 17:07 Assessment/Plan VTE Prophylaxis VTE Prophylaxis Intervention: other (plavix) Lines/Catheters IV Catheter Type (from Nrsg): Peripheral IV Central line still needed: No Urinary Cath still in place: Yes Reason Cath still needed: terminal illness/intractable pain Assessment/Plan Assessment/Plan 1. peritonitis/ sepsis/ uti/ fever 2. rld w/ pulm fluid overload 3. rob/ anemia/ edema 4. cad 5. dm 6. worsening debility ---admit to tele ---cards ref ---pulm ref ---id ref ---gi/ surg ref ---ivf ---iv atbx ---remove peg tube & biliary drain cath HPI/ROS Admit Date/Time Admit Date/Time Feb 26, 2017 at 13:57 Hx of Present Illness pt was in [facility]. 2 days, was having fever, high gluc level , rt sida abd pain, lf peg tube site fluctuant & leaking. was then transferred to [facility] er. cxr/ct showed pulm congestion, peg tube was leaking into peritoneum , & biliary cath was out of bile duct. ROS soft voice+ a&o x2 only obese+ dec bs bibasilar+ +1-2 pit edema tender ruq abd+, lf mid peg tube site leaking/ fluctuant/ tender+ a few toes black+ 101/76 hr 79 rr 18-22 temp 102f Respiratory: no complaints Cardiovascular: no complaints Gastrointestinal: no complaints Musculoskeletal: no complaints Skin: no complaints Neurologic: no complaints PMH/Family/Social Past Medical History mi/ cad 09/2016, dm, obesity, htn, rld--2x pneumonia & intubated, arf--was on dialysis, pvd with a few toes gangrenous, s/p encephalopathy, depression, worsening debility Medical History: coronary artery disease, high cholesterol, hypertension Past Surgical History cad stent place, cataract surg, peg tube place, biliary drain cath place Past Surgical Hx: noncontributory, angioplasty Family History Significant Family History: heart disease, diabetes Social History Alcohol Use: none Smoking Status: Never smoker Drug Use: none SHAMA LOPEZ MD Feb 28, 2017 13:17
--- NOTE | 2017-02-28 13:30 | PN ---
Date/Time of Note Date/Time of Note DATE: 02/27/17 TIME: 16:21 Assessment/Plan VTE Prophylaxis VTE Prophylaxis Intervention: other (plavix) Lines/Catheters IV Catheter Type (from Nrsg): Peripheral IV Central line still needed: No Urinary Cath still in place: Yes Reason Cath still needed: terminal illness/intractable pain Assessment/Plan Assessment/Plan 1. peritonitis/ sepsis/ uti 2. rld/ pulm congestion 3. rob/ anemia/ edema/ high k--making urine 4. cad/ pad/ gang toes 5. dm--high gluc 6. debility ---per ID/ CARDS/ PULM/ RENAL/ GI-SURG ---cont atbx ---cont ivf ---do not use peg tube ---cont all supportive cares ---spoke with [facility], will try not to restart dialysis in the future, remove permacath ---inc ins doses Subjective 24 Hr Interval Summary Free Text/Dictation obese/ lying bed/ closed eyes/ slight nod & shaking of head to questions only+ warm to touch+ +1 pit edema cont dec bs bibasilar+ rr fluctuant/ tender abd+ 102/50 hr94 rr21 afebrile SHAMA LOPEZ MD Feb 28, 2017 13:30
--- NOTE | 2017-02-28 14:00 | PN ---
Date/Time of Note Date/Time of Note DATE: 02/28/17 TIME: 13:42 Assessment/Plan VTE Prophylaxis VTE Prophylaxis Intervention: other (plavix) Lines/Catheters IV Catheter Type (from Nrsg): Peripheral IV Central line still needed: No Urinary Cath still in place: Yes Reason Cath still needed: terminal illness/intractable pain Assessment/Plan Assessment/Plan 1. peritonitis/ sepsis/ uti 2. rob/ anemia/ edema 3. rld/ pulm congestion 4. cad/ pvd/ gang toes 5. dm 6. depression/ worsening disability ---per ID/ CARDS/ RENAL/ PULM/ GI-SURG ---cont atbx ---cont ivf ---change to nph ins 20u sq bid ---may needs picc line for iv access Subjective 24 Hr Interval Summary Free Text/Dictation back to her soft voice talking, having belly pain+, tired+ Exam/Review of Systems Vital Signs Vitals Vital Signs Date Time Temp Pulse Resp B/P Pulse Ox O2 Delivery O2 Flow Rate FiO2 02/28/17 12:31 109 02/28/17 11:49 98.6 18 102/52 97 02/28/17 01:58 3.0 02/27/17 20:56 Nasal Cannula Intake and Output 02/27/17 02/27/17 02/28/17 15:00 23:00 07:00 Intake Total 1310 ml 300 ml 1000 ml Output Total 75 ml 125 ml 550 ml Balance 1235 ml 175 ml 450 ml Exam more awake, eyes open, soft voice, obese, dec bs bibasilar, rr, abd softer & less tender?, +1 pit edema, a few black toes+ Results Result Diagram: 02/28/17 0715 02/28/17 0715 Results 24 hrs Laboratory Tests Test 02/27/17 15:16 02/27/17 15:22 02/27/17 18:50 02/28/17 07:15 Potassium Level 5.5 H 5.5 H 5.3 H Iron Level 21 L Total Iron Binding Capacity 142 L Percent Iron Saturation 15 L Ferritin 1150.0 H Sodium Level 134 L 140 Chloride Level 93 L 98 Carbon Dioxide Level 30 29 Anion Gap 17 H 18 H Blood Urea Nitrogen 81 H 75 H Creatinine 0.98 0.95 Glucose Level 294 H 243 H Calcium Level 9.3 9.3 Total Bilirubin 0.0 L 0.0 L Direct Bilirubin 0.00 0.00 Indirect Bilirubin 0.0 0.0 Aspartate Amino Transf (AST/SGOT) 21 19 Alanine Aminotransferase (ALT/SGPT) 35 27 Alkaline Phosphatase 284 H 249 H Total Protein 6.2 6.4 Albumin 2.4 L 2.5 L Globulin 3.80 H 3.90 H Albumin/Globulin Ratio 0.63 0.64 Bedside Glucose 323 H White Blood Count 10.6 # Red Blood Count 3.22 L Hemoglobin 9.0 L Hematocrit 30.4 L Mean Corpuscular Volume 94.4 Mean Corpuscular Hemoglobin 28.0 L Mean Corpuscular Hemoglobin Concent 29.6 L Red Cell Distribution Width 16.7 H Platelet Count 534 #H Mean Platelet Volume 10.0 Neutrophils % 76.9 Lymphocytes % 7.8 L Monocytes % 12.3 H Eosinophils % 1.6 Basophils % 0.2 Nucleated Red Blood Cells % 0.0 Neutrophils # (Manual) 8.1 H Lymphocytes # 0.8 Monocytes # 1.3 H Eosinophils # 0.2 Basophils # 0.0 Nucleated Red Blood Cells # 0.0 Magnesium Level 2.1 Test 02/28/17 08:27 02/28/17 11:50 Bedside Glucose 241 H 248 H Medications Medications Current Medications Ondansetron HCl (Zofran Inj) 4 mg Q6H PRN IV NAUSEA AND/OR VOMITING; Start at 16:00 Miscellaneous Information 1 ea NOTE XX ; Start 02/26/17 at 21:00 Glucose (Glutose) 15 gm Q15M PRN PO DECREASED GLUCOSE; Start 02/26/17 at 21:00 Glucose (Glutose) 22.5 gm Q15M PRN PO DECREASED GLUCOSE; Start 02/26/17 at 21: 00 Dextrose (D50w Syringe) 25 ml Q15M PRN IV DECREASED GLUCOSE; Start 02/26/17 at 21:00 Dextrose (D50w Syringe) 50 ml Q15M PRN IV DECREASED GLUCOSE; Start 02/26/17 at 21:00 Glucagon (Glucagen) 1 mg Q15M PRN IM DECREASED GLUCOSE; Start 02/26/17 at 21:00 Glucose (Glutose) 15 gm Q15M PRN BUCCAL DECREASED GLUCOSE; Start 02/26/17 at 21 :00 Miscellaneous Information This patient le... PRN PRN XX WOUND CARE; Start 02/27 at 03:30 Meropenem/Sodium Chloride (Merrem 1 Gm/50 ml (Pmx)) 50 ml @ 100 mls/hr Q8 IVPB Last administered on 02/28/17 06:15; Admin Dose 100 MLS/HR; Start 02/27/17 at 14:00 Diagnostic Test (Pha) (Accu-Chek) 1 ea 02 XX ; Start 02/28/17 at 02:00 Insulin Glargine 20 unit 20 unit DAILY@20 SC Last administered on 02/27/17 20: 30; Admin Dose 20 UNIT; Start 02/27/17 at 20:00 Dextrose/Sodium Chloride (D5-NS) 1,000 ml @ 75 mls/hr [id number] IV Last administered on 02/28/17 08:43; Admin Dose 100 MLS/HR; Start 02/27/17 at 13:30 Epoetin Raj (Epogen (Esrd)) 10,000 units TuThSa@17 SC Last administered on 18:46; Admin Dose 10,000 UNITS; Start 02/27/17 at 17:00 Pantoprazole (Protonix Iv) 40 mg DAILY@02 IV Last administered on 02/28/17 02: 00; Admin Dose 40 MG; Start 02/28/17 at 02:00 Miscellaneous Information (*Rx Drug Level Order Reminder*) VANCOMYCIN RANDOM ON 02/05... ONCE ONCE XX ; Start 03/01/17 at 05:00; Stop 03/01/17 at 05:01 SHAMA LOPEZ MD Feb 28, 2017 13:52
[2017-02-28] MEDS ORDERED: EPHEDrine SULFATE 50 MG/5 ML SYG ONE (15:54)
[2017-02-28] MEDS ORDERED: PROPOFOL 0 ML ONE (15:54)
[2017-02-28] MEDS ORDERED: FENTAnyl 50 MCG/ML VIAL ONE (15:55)
[2017-02-28] MEDS ORDERED: MIDAZOLAM 1 MG/ML 2 ML INJ ONE (15:55)
[2017-02-28] MEDS ORDERED: GLYCOPYRROLATE 0.4 MG INJ ONE (15:55)
[2017-02-28] MEDS ORDERED: LIDOCAINE 1% (MDV) 20 ML INJ ONE (16:25)
--- NOTE | 2017-02-28 17:22 | RADRPT ---
PROCEDURE: CT guided abdominal wall abscess drainage. CLINICAL INDICATION: Abdominal pain. Sepsis. TECHNIQUE: Informed consent was obtained. The procedure, risks, benefits, complications and alternatives were explained to the patient. Risks including bleeding and infection were explained. The patient underst ood and was willing to proceed. A procedural pause was performed. The patient's name, date of , and procedure to be performed were verified. One or more of the following dose reduction techniq ues were used: Automated exposure control, adjustment of the mA and/or kV according to patient size, use of iterative reconstruction technique. Using local anesthetic, sterile technique and CT guidance, a 19-gauge Yueh needle was advanced into the fluid collection in the left flank abdominal wall. CT scan was performed confirming position. Purulent fluid was also aspirated confirming position. The needle from the Yueh catheter was remove d, leaving the Yueh catheter in place within the fluid collection. A 0.035-inch Amplatz guidewire w as advanced through the Yueh catheter into the fluid collection. The Yueh catheter was removed. Th e tract was dilated to 10 [place] and a 10.2 [place] multipurpose drainage catheter was advanced over the guidewire into the fluid collection. The guidewire was removed. Additional scanning was perfor med confirming position. The catheter was then sutured to the patient's skin with 2-0 silk. Approx imately 670 ml of purulent fluid was aspirated. The catheter was connected to a drainage bag. A dr essing was applied. The patient tolerated procedure well. COMPARISON: None. FINDINGS: Final images demonstrate the drainage catheter in satisfactory position within the abscess. IMPRESSION: 1. Successful CT guided left flank abdominal wall abscess drainage. RPTAT: QQ .Arnaldo Back MD, Date Time Electronically viewed and signed by .Arnaldo Back MD, MD on 02/28/2017 17:21 .R/
[2017-02-28] MEDS ORDERED: NPH, HUMAN INSULIN ISOPHANE 3ML VIAL SC SCH (20:00)
--- NOTE | 2017-02-28 20:00 | RADRPT ---
PROCEDURE: CT Abdomen and Pelvis without contrast. CLINICAL INDICATION: Tube leak. TECHNIQUE: Multiple contiguous axial CT images of the abdomen and pelvis were obtained without the administration of intravenous contrast. Oral contrast was administered. Coronal and sagittal recons tructions were also performed. CTDIvol (mGy): 22.68; Total Exam DLP (mGy-cm): 1448.36. One or more of the following dose reduction techniques were utilized: - Automated exposure control. - Adjustment of the mA and/or kV according to patient size. - Use of iterative reconstruction technique. COMPARISON: CT abdomen/pelvis 02/26/2017. FINDINGS: Limited imaging of the lower thorax demonstrates moderate bilateral pleural effusions with bibasilar atelectasis. The liver and spleen are homogeneous in density. A percutaneous cholecystostomy tube is in place wi thin the gallbladder lumen. The gallbladder is collapsed. The pancreas and adrenal glands are unre markable. The kidneys are symmetric in size. There are no nephroureteral stones. There is no hydronephrosis o r abnormal perinephric inflammation. The abdominal aorta is normal in caliber. Atherosclerotic calcification is present. There is no per iaortic / retroperitoneal lymphadenopathy. A percutaneous gastrostomy tube is in place within the distal portion of the stomach. There is a la rge fluid and air filled collection within the left side of the abdominal wall measuring 17.0 x 7.2 cm in greatest transverse dimension extending along the full length of the anterior abdominal wall. Diffuse subcutaneous edema is present. The small and large intestines are unremarkable. The append ix is normal. There is no ascites. There is no free intra-abdominal air. The bladder is collapsed around a Rivas. The uterus and adnexa are unremarkable. There is no free p elvic fluid. There is no pelvic sidewall or inguinal lymphadenopathy. Degenerative changes of the spine are present. IMPRESSION: Large fluid collection of the left side of the ventral abdominal wall likely a result of leakage fro m the percutaneous gastrostomy tube. A percutaneous gastrostomy tube is in place within the body of the stomach. Percutaneous cholecystostomy tube in place with decompression of the gallbladder. Moderate bilateral pleural effusions with bibasilar atelectasis. RPTAT: HLST .Sandhya Padma, MD, Date Time Electronically viewed and signed by .Sandhya Rouse MD, on 02/28/2017 20:00 .T/
--- NOTE | 2017-02-28 20:57 | CONS ---
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 This has been addressed with a cutaneous drain today. I discussed the care at length with Dr. Back and the other 2 issues that we have to deal with our replacement of the PEG with a gastrojejunostomy tube which would allow us to empty the stomach while feeding the small intestine at the same time. This will allow the abdominal wall to heal and to give patient nutrition. Lastly, we also need to address the percutaneous cholecystostomy drain and perhaps replace it. Fortunately there is no indication for acute surgical intervention. Explained to patient and and answered all of their questions to the best my ability. I believe that they understand and agreed with the plans. With above assessment, I recommend the followin. Keep in-house 2. Replace PEG with gastrojejunostomy tube 3. Percutaneous cholecystostomy tube check with possible exchange/upsizing/ replacement 4. Consider another attempt at formal swallow evaluation with possible resumption of regular food intake if the patient passes her test 5. Continue physical therapy in-house 6. Check labs 7. Correct electrolytes and recheck 8. Monitor for signs of sepsis since she is at high risk (elevated and rising white blood cell count) Thank you again for allowing us to participate in the care of this very pleasant lady and her wonderful family. If there are any questions, please feel free to contact me at [phone]. Please note that, given the extensive number of diagnoses or management options , the moderate to extensive amount and/or complexity of data needed to be reviewed, and I risk of complications and/or morbidity or mortality, this qualifies as high complexity type of decision-making. Disclaimer: Inadvertent spelling and grammatical errors are likely due to EHR/ dictation software use and do not reflect on the quality of delivered patient care. Also, please note that the electronic time recorded on this node does not necessarily reflect the actual time of the visit. Updated Clinical Summary: A very pleasant 71-year-old lady with multiple comorbid issues including BMI of 35.6 as well as what has been in the hospital since 09/2016 being found unresponsive and multiple issues including congestive heart failure, acute renal failure due to acute tubular necrosis requiring dialysis, urinary tract infection with bacteremia and multiple other issues, who was found to have possible signs of acute cholecystitis on recent imaging. D/c to [facility] ([place] 12/25/16. Readmitted to [facility] for abdominal wall pain on the left side on 01/16/2017. Urinary tract infection treated for E. coli. Thoracentesis with removal of approximately 1 L of fluid from her chest 2016. Percutaneous gallbladder drain exchange 01/18/2017. Feeding tube replaced 01/23/2017 by GI (Dr. Helm). Readmitted to [facility] 2016 with abdominal wall abscess. COMORBIDITIES: 1. BMI of 35.6. 2. Acute renal failure (ATN), on maintenance hemodialysis (Friday, , Friday). 3. Congestive heart failure. 4. Anemia. 5. Hypocalcemia. 6. Hypoalbuminemia and malnutrition. 7. Peripheral vascular disease with gangrene of toes of both feet. 8. Recent history of respiratory failure. 9. History of dysphagia requiring PEG placement and feedings. 10. Diabetes mellitus. 11. Leukocytosis from various sources. 12. Funguria with Erica glabrata and Erica albicans of the urine. 13. Escherichia coli and Enterococcus urinary tract infection 10/29/2016. 14. Escherichia coli bacteremia 12/02/2016 (x2 cultures). 15. Repeat culture of the urine 12/02/2016 with E. coli, enterococcus species and Klebsiella pneumoniae, extended-spectrum beta-lactamase. 16. Repeat bacteremia 12/08/2016 with Escherichia coli. 17. Urine positive for Erica albicans 12/11/2016. 18. Clostridium difficile colitis negative on a few stool samples. 19. Bilateral pleural effusions. 20. 2 mm calcified granuloma in the right lower lobe. 21. CT scan of abdomen and pelvis 12/13/2016 showing large amount of pericholecystic fluid with distention of the gallbladder, which could be of acute cholecystitis. 22. Tumefaction sludge, poorly visualized gallstones or soft tissue masses are suspected within the lumen of the distended gallbladder. 23. Anasarca. 24. Status post splenectomy. 25. A 2.8 cm left parapelvic cyst and an adjacent 1.4 cm simple cyst lateral upper portion of the lower third left kidney noted. 26. Atherosclerotic vascular disease. 27. Osteoarthritis of the thoracic and lumbosacral spine. 28. History of acute ST elevation myocardial infarction, inferior wall, status post code STEMI with stent placement, as well as temporary pacer wire. 29. Hyperlipidemia. 30. Possible aspiration pneumonia. 31. S/p CT-guided percutaneous transhepatic cholecystostomy drain placement 06/22, [facility]. 32. Feeding tube replaced 01/23/2017 by GI (Dr. Helm) at [facility]. CONSULTATION REQUESTED BY: Jessica Castillo MD HISTORY OF PRESENT ILLNESS: The patient is a very pleasant but unfortunate 72- year-old lady, well-known to me from her prior admission and my first visit with them in December 2016 (please see my notes for previous admissions for further details), with multiple comorbid issues as outlined above and significantly prolonged hospital stay between September - December 2016 with various issues with congestive heart failure, urinary tract infection, bacteremia, respiratory failure, and many other issues, who was found to have acute cholecystitis and for this reason, I was initially kindly asked to consult regarding management of this issue. She improved after placement of percutaneous transhepatic cholecystostomy drain and eventually was discharged to SNF. Patient has been in and out of the hospital due to various issues, some of which had to do with the percutaneous gastrostomy tube as well as abdominal wall abscess and some with the percutaneous cholecystostomy drain. 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 The percutaneous cholecystostomy drain also seems to be displaced. Patient's abdominal wall abscess was drained today. During my visit, the patient reported no significant abdominal pain. She again did not have a strong voice and it was somewhat difficult to communicate with her, but she appeared to be understanding everything that I was saying to her. She did not report any active nausea or vomiting and did not have any other major complaints. Her was also present during my visit and there were no other major complaints. ALLERGIES: SOY. MEDICATIONS: Documented in the electronic records and reviewed by me. Please see the electronic records for details, as well as details for inpatient medications which were also reviewed by me. SOCIAL HISTORY: The patient lives at a intermediate for recovery from a recent hospitalization and she has a very supportive family. 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 She normally lives with her and does not report any smoking , drinking, or intravenous drug use. FAMILY HISTORY: There is no mention of major medical, surgical or oncologic problems in the family. REVIEW OF SYSTEMS: Other than the above-mentioned, there are no other pertinent positives or pertinent negatives in a complete 14-point review of systems. PHYSICAL EXAMINATION: GENERAL: The patient appears to be a very pleasant lady of non- descent, appearing stated age or perhaps slightly older, lying in bed comfortably and in no acute distress. Her BMI is 34.4 (previously 35.10 December 2016 and 32.0 in January 2017). VITAL SIGNS: Carefully reviewed in the electronic health record system (see below as well). HEENT: Normocephalic and atraumatic. Extraocular muscles and hearing are grossly intact bilaterally and symmetrically. Sclerae are nonicteric. Oral cavity is clear; oral mucosa appeared to be pink and moist. Dentition: poor. NECK: Supple. There is no lymphadenopathy or JVD. There is no submental, submandibular or supraclavicular lymphadenopathy. CHEST: Rises symmetrically with each breath; patient is breathing comfortably. There are no audible wheezes, rales or rhonchi on the gross exam. HEART: Pulse is regular and tachycardic and palpable on the right wrist. Capillary refill was normal. Carotid pulses are palpable bilaterally and symmetrically in the neck. ABDOMEN: Soft, nondistended, and mildly tender to palpation in the right upper quadrant. There is a clean site of previous percutaneous gastrostomy tube in the left upper quadrant without any discharge. There is no evidence of organomegaly, caput medusae, engorged subcutaneous veins, or ascites. There are no peritoneal signs or guarding. The percutaneous cholecystostomy drain appears to have minimum fluid within the tubing and slight amount in the bag. EXTREMITIES: Show bilateral dry gangrene ulcers of the toes. There is no pitting edema around the ankles bilaterally and symmetrically. SKIN: Appears to be pink and feels warm to touch. NEUROLOGIC: Awake, alert, and follows commands appropriately. LABORATORY DATA: 01/17/2017: White blood cell count 28, hemoglobin 8.4, platelets 346. Sodium 131 , potassium 2.8, carbon dioxide 26, creatinine 1.03, lactic acid 2.2, total bilirubin 0.1, AST 33, ALT 43, alkaline phosphatase 296. Albumin 2.1. Admission amylase 95, admission lipase 34. INR 0.96. Urinalysis with 3+ leukocyte esterase but negative nitrite. Previous lab data: White blood cell count 9.8, which is normal compared to many days of elevated white count up to 47.4 on 12/03/2016, hemoglobin 10.3, platelets 323. Note that this is in the setting of overall 10 units of red blood cells transfused, as well as 4 units of thawed plasma. The latest transfusion was on 12/14/2016 and before that was 12/07/2016. Her electrolytes appear to be normal. Creatinine is 1.80. Total bilirubin 0.0, AST 68, ALT 44, alkaline phosphatase 204, lipase 27, amylase 49, albumin 2.7. INR 1.0. Stool occult was positive 12/07/2016 and negative prior to that. Hepatitis A immunoglobulin antibody was nonreactive, hepatitis B surface antigen and B core total antibody was also negative. Hepatitis C antibody was negative. IMAGING: CT abdomen and pelvis [facility] 02/26/2017 IMPRESSION: Large abscess in left abdominal wall musculature has increased in size since January 16, 2017. Percutaneous gastrostomy tube appears in good position; however, there is concern for communication between the gastric lumen and the abdominal wall alongside the entry site of the PEG with fistulization. This could better be evaluated with a contrast study through the PEG. Surgical consultation is advised. Percutaneous cholecystostomy catheter has pulled back since prior CT and metallic marker is retracted into the liver parenchyma. The pigtail looped is at the superior aspect of the gallbladder and may be external to the gallbladder. Gallbladder is mildly distended. Suggest reevaluation by interventional radiology. Moderate bilateral pleural effusions and diffuse body wall edema. Right pleural effusion is decreased in size and left pleural effusion has increased in size. 1.7 cm right lower lobe pulmonary nodule is incompletely characterized. It may have been obscured by atelectasis on the prior exam and follow-up comparison is not possible. Recommend further evaluation with dedicated chest CT after thoracentesis. Critical results abdominal wall abscess and details about the percutaneous gastrostomy and percutaneous cholecystostomy with recommendations were discussed with Dr. Hayes by Dr. Arlen Mckeon on February 26, 2017 at 09:[address] of abdomen and pelvis 01/16/2017 at [facility] IMPRESSION: 1. Gastrostomy tube retracted from gastric lumen into left anterior abdominal subcutaneous tissues with marked subcutaneous and abdominal wall emphysematous changes present. 2. Cholecystostomy in a distended gallbladder with cholelithiasis present. 3. Moderate right pleural effusion and right lower lobe atelectasis or consolidation. 4. Mild cardiomegaly and atherosclerotic vascular disease 5. Markedly distended urinary bladder and correlate with urethral outlet obstruction. 6. Degenerative spondylosis of the imaged spine and osteopenia. Chest x-ray 01/17/2017 at [facility] IMPRESSION: 1. Again noted is right upper quadrant subcutaneous emphysema. Not significantly changed from prior examination. 2. Cholecystostomy tube in place. 3. Small to moderate right pleural effusion. Multiple previous images exist and I have reviewed the pertinent image findings of the recent abdominal and pelvic CT on 12/13/2016. There was also an ultrasound on 12/10/2016, the report of which mentions normal gallbladder without gallstones, but the review of the images dispute that report. Otherwise , I have reviewed all the available and pertinent images and I agree in general with their overall reported findings. Consultation Date/Type/Reason Admit Date/Time Feb 26, 2017 at 13:57 Constitutional: no complaints Respiratory: no complaints Cardiovascular: no complaints Gastrointestinal: no complaints Musculoskeletal: no complaints Skin: no complaints Neurologic: no complaints Endocrine: no complaints Past Medical History Medical History: coronary artery disease, high cholesterol, hypertension Past Surgical History Past Surgical Hx: noncontributory, angioplasty Social History Alcohol Use: none Smoking Status: Never smoker Drug Use: none Exam/Review of Systems Vital Signs Vitals Vital Signs Date Time Temp Pulse Resp B/P Pulse Ox O2 Delivery O2 Flow Rate FiO2 02/28/17 20:47 96 02/28/17 20:25 20 95 21 02/28/17 20:00 97.5 109/55 02/28/17 14:33 Nasal Cannula 3.0 Intake and Output 802/27/17 02/28/17 15:00 23:00 07:00 Intake Total 1310 ml 300 ml 1000 ml Output Total 75 ml 125 ml 550 ml Balance 1235 ml 175 ml 450 ml Results Result Diagram: 02/28/17 0715 02/28/17 1342 Results 24 hrs Laboratory Tests Test 02/28/17 07:15 02/28/17 08:27 02/28/17 11:50 02/28/17 13:42 White Blood Count 10.6 # Red Blood Count 3.22 L Hemoglobin 9.0 L Hematocrit 30.4 L Mean Corpuscular Volume 94.4 Mean Corpuscular Hemoglobin 28.0 L Mean Corpuscular Hemoglobin Concent 29.6 L Red Cell Distribution Width 16.7 H Platelet Count 534 #H Mean Platelet Volume 10.0 Neutrophils % 76.9 Lymphocytes % 7.8 L Monocytes % 12.3 H Eosinophils % 1.6 Basophils % 0.2 Nucleated Red Blood Cells % 0.0 Neutrophils # (Manual) 8.1 H Lymphocytes # 0.8 Monocytes # 1.3 H Eosinophils # 0.2 Basophils # 0.0 Nucleated Red Blood Cells # 0.0 Sodium Level 140 Potassium Level 5.3 H 4.6 Chloride Level 98 Carbon Dioxide Level 29 Anion Gap 18 H Blood Urea Nitrogen 75 H Creatinine 0.95 Glucose Level 243 H Calcium Level 9.3 Magnesium Level 2.1 Total Bilirubin 0.0 L Direct Bilirubin 0.00 Indirect Bilirubin 0.0 Aspartate Amino Transf (AST/SGOT) 19 Alanine Aminotransferase (ALT/SGPT) 27 Alkaline Phosphatase 249 H Total Protein 6.4 Albumin 2.5 L Globulin 3.90 H Albumin/Globulin Ratio 0.64 Bedside Glucose 241 H 248 H Test 02/28/17 17:44 02/28/17 20:40 Bedside Glucose 145 127 Medications Medications Current Medications Ondansetron HCl (Zofran Inj) 4 mg Q6H PRN IV NAUSEA AND/OR VOMITING; Start at 16:00 Miscellaneous Information 1 ea NOTE XX ; Start 02/26/17 at 21:00 Glucose (Glutose) 15 gm Q15M PRN PO DECREASED GLUCOSE; Start 02/26/17 at 21:00 Glucose (Glutose) 22.5 gm Q15M PRN PO DECREASED GLUCOSE; Start 02/26/17 at 21: 00 Dextrose (D50w Syringe) 25 ml Q15M PRN IV DECREASED GLUCOSE; Start 02/26/17 at 21:00 Dextrose (D50w Syringe) 50 ml Q15M PRN IV DECREASED GLUCOSE; Start 02/26/17 at 21:00 Glucagon (Glucagen) 1 mg Q15M PRN IM DECREASED GLUCOSE; Start 02/26/17 at 21:00 Glucose (Glutose) 15 gm Q15M PRN BUCCAL DECREASED GLUCOSE; Start 02/26/17 at 21 :00 Miscellaneous Information This patient le... PRN PRN XX WOUND CARE; Start 02/27 at 03:30 Meropenem/Sodium Chloride (Merrem 1 Gm/50 ml (Pmx)) 50 ml @ 100 mls/hr Q8 IVPB Last administered on 02/28/17 13:32; Admin Dose 100 MLS/HR; Start 02/27/17 at 14:00 Diagnostic Test (Pha) 1 ea 1 ea 02 XX ; Start 02/28/17 at 02:00 Dextrose/Sodium Chloride (D5-NS) 1,000 ml @ 75 mls/hr [id number] IV Last administered on 02/28/17 08:43; Admin Dose 100 MLS/HR; Start 02/27/17 at 13:30 Epoetin Raj (Epogen (Esrd)) 10,000 units TuThSa@17 SC Last administered on 18:46; Admin Dose 10,000 UNITS; Start 02/27/17 at 17:00 Pantoprazole (Protonix Iv) 40 mg DAILY@02 IV Last administered on 02/28/17 02: 00; Admin Dose 40 MG; Start 02/28/17 at 02:00 Miscellaneous Information (*Rx Drug Level Order Reminder*) VANCOMYCIN RANDOM ON 02/05... ONCE ONCE XX ; Start 03/01/17 at 05:00; Stop 03/01/17 at 05:01 Insulin Human NPH (Humulin N) 20 unit BID@08,20 SC ; Start 02/28/17 at 20:00 SHANA ROSARIO M.D. Feb 28, 2017 20:57
[2017-03-01] VITALS (10 sets, daily range): BP systolic 84–123; BP diastolic 52–59; PULSE 82–103; RESP 16–18
[2017-03-01] MEDS: PANTOPRAZOLE 40 MG INJ IV SCH (02:00)
[2017-03-01] MEDS: ACCU-CHEK XX SCH (02:00)
[2017-03-01] MEDS: MEROPENEM 1 GM/50ML(PMX) 50 ML IVPB SCH ×3 (06:00→22:00)
--- NOTE | 2017-03-01 07:00 | CONS ---
Date/Time of Note Date/Time of Note DATE: 03/01/17 TIME: 06:50 Assessment/Plan Assessment/Plan Chief Complaint/Hosp Course 1) UTI, kleb +ESBL in urine change zosyn to merrem await final report on urine cx 02/28 - kleb +ESBL present in urine cx continue with merrem 2) hx of choleycystitis on CT the gall bladder looks ok re-consult dr. lomax to see if drainage tube can be removed 03/01 - await removal of gall bladder drain 3) abd wall fluid collection this tracks down to the pelvis and likely emanates from the g-tube will order CT abd with oral contrast via the PEG cx from around the g-tube pt may need surgical intervention for this will consider WBC scan continue with vanco/merrem get nasal swab for MRSA 02/28 - pt to get fluid collection surgically drained when she is medically cleared continue with vanco/merrem 03/01 - drain was placed for abd wall abscess and is draining tube feed looking fluid await d/c of PEG and replacement await culture results, continue with vanco/merrem 4) CAD hx of CABG 5) hx of anoxic encephalopathy 02/28 - pt is back to baseline Problems: Consultation Date/Type/Reason Admit Date/Time Feb 26, 2017 at 13:57 Initial Consult Date 02/27/17 Type of Consultation: ID [id number] HR Interval Summary Free Text/Dictation pt s/p drain placement for abd wall abscess pt denies abd pain, V, D pt is hungry Exam/Review of Systems Vital Signs Vitals Vital Signs Date Time Temp Pulse Resp B/P Pulse Ox O2 Delivery O2 Flow Rate FiO2 02/28/17 20:47 96 02/28/17 20:25 20 95 21 02/28/17 20:00 97.5 109/55 02/28/17 14:33 Nasal Cannula 3.0 Intake and Output 02/28/17 02/28/17 03/01/17 15:00 23:00 07:00 Output Total 550 ml Balance -550 ml Exam Constitutional: alert, oriented Eyes: nl conjunctiva ENMT: mucosa pink and moist Respiratory: clear to auscultation Cardiovascular: regular rate and rhythm Gastrointestinal: other (BS present, firmness to L flank still present, new drain that is draining tube feeds is present) Results Result Diagram: 02/28/17 0715 02/28/17 1342 Results 24 hrs Laboratory Tests Test 02/28/17 07:15 02/28/17 08:27 02/28/17 11:50 02/28/17 13:42 White Blood Count 10.6 # Red Blood Count 3.22 L Hemoglobin 9.0 L Hematocrit 30.4 L Mean Corpuscular Volume 94.4 Mean Corpuscular Hemoglobin 28.0 L Mean Corpuscular Hemoglobin Concent 29.6 L Red Cell Distribution Width 16.7 H Platelet Count 534 #H Mean Platelet Volume 10.0 Neutrophils % 76.9 Lymphocytes % 7.8 L Monocytes % 12.3 H Eosinophils % 1.6 Basophils % 0.2 Nucleated Red Blood Cells % 0.0 Neutrophils # (Manual) 8.1 H Lymphocytes # 0.8 Monocytes # 1.3 H Eosinophils # 0.2 Basophils # 0.0 Nucleated Red Blood Cells # 0.0 Sodium Level 140 Potassium Level 5.3 H 4.6 Chloride Level 98 Carbon Dioxide Level 29 Anion Gap 18 H Blood Urea Nitrogen 75 H Creatinine 0.95 Glucose Level 243 H Calcium Level 9.3 Magnesium Level 2.1 Total Bilirubin 0.0 L Direct Bilirubin 0.00 Indirect Bilirubin 0.0 Aspartate Amino Transf (AST/SGOT) 19 Alanine Aminotransferase (ALT/SGPT) 27 Alkaline Phosphatase 249 H Total Protein 6.4 Albumin 2.5 L Globulin 3.90 H Albumin/Globulin Ratio 0.64 Bedside Glucose 241 H 248 H Test 02/28/17 17:44 02/28/17 20:40 Bedside Glucose 145 127 Medications Medications Current Medications Ondansetron HCl (Zofran Inj) 4 mg Q6H PRN IV NAUSEA AND/OR VOMITING; Start at 16:00 Miscellaneous Information 1 ea NOTE XX ; Start 02/26/17 at 21:00 Glucose (Glutose) 15 gm Q15M PRN PO DECREASED GLUCOSE; Start 02/26/17 at 21:00 Glucose (Glutose) 22.5 gm Q15M PRN PO DECREASED GLUCOSE; Start 02/26/17 at 21: 00 Dextrose (D50w Syringe) 25 ml Q15M PRN IV DECREASED GLUCOSE; Start 02/26/17 at 21:00 Dextrose (D50w Syringe) 50 ml Q15M PRN IV DECREASED GLUCOSE; Start 02/26/17 at 21:00 Glucagon (Glucagen) 1 mg Q15M PRN IM DECREASED GLUCOSE; Start 02/26/17 at 21:00 Glucose (Glutose) 15 gm Q15M PRN BUCCAL DECREASED GLUCOSE; Start 02/26/17 at 21 :00 Miscellaneous Information This patient le... PRN PRN XX WOUND CARE; Start 02/27 at 03:30 Meropenem/Sodium Chloride (Merrem 1 Gm/50 ml (Pmx)) 50 ml @ 100 mls/hr Q8 IVPB Last administered on 02/28/17 21:41; Admin Dose 100 MLS/HR; Start 02/27/17 at 14:00 Diagnostic Test (Pha) 1 ea 1 ea 02 XX ; Start 02/28/17 at 02:00 Dextrose/Sodium Chloride (D5-NS) 1,000 ml @ 75 mls/hr [id number] IV Last administered on 02/28/17 21:41; Admin Dose 75 MLS/HR; Start 02/27/17 at 13:30 Epoetin Raj (Epogen (Esrd)) 10,000 units TuThSa@17 SC Last administered on 18:46; Admin Dose 10,000 UNITS; Start 02/27/17 at 17:00 Pantoprazole (Protonix Iv) 40 mg DAILY@02 IV Last administered on 02/28/17 02: 00; Admin Dose 40 MG; Start 02/28/17 at 02:00 Insulin Human NPH (Humulin N) 20 unit BID@08,20 SC Last administered on 21:40; Admin Dose 20 UNIT; Start 02/28/17 at 20:00 TR GOODEN MD Mar 01, 2017 07:00
[2017-03-01 07:59] LABS: BASOPHILS % 0.5 % (0.0-2.0); EOSINOPHILS # 0.3 10^3/ul (0.0-0.5); EOSINOPHILS % 3.8 % (0.0-7.0); HEMATOCRIT 29.7 % (37.0-47.0); HEMOGLOBIN 8.6 g/dl (12.0-16.0); LYMPHOCYTES # 1.2 10^3/ul (0.8-2.9); LYMPHOCYTES % 16.1 % (15.0-51.0); MEAN CORPUSCULAR HEMOGLOBIN 27.4 pg (29.0-33.0); MEAN CORPUSCULAR VOLUME 94.6 fl (82.0-101.0); MEAN PLATELET VOLUME 10.1 fl (7.4-10.4); MONOCYTE # 0.8 10^3/ul (0.3-0.9); MONOCYTES % 10.7 % (0.0-11.0); NEUTROPHILS % 66.5 % (39.0-77.0); PLATELET COUNT 578 10^3/UL (140-415); RED BLOOD COUNT 3.14 10^6/ul (4.20-5.40); RED CELL DISTRIBUTION WIDTH 16.9 % (11.5-14.5); WHITE BLOOD COUNT 7.6 10^3/ul (4.8-10.8)
[2017-03-01] MEDS: INSULIN ASPART [NOVOLOG] 3 ML PEN SC SCH ×4 (08:00→21:00)
[2017-03-01 08:27] LABS: ALBUMIN 2.4 g/dl (3.3-4.9); ALBUMIN/GLOBULIN RATIO 0.63; CALCIUM 9.1 mg/dl (8.4-10.2); CREATININE 0.9 mg/dl (0.44-1.00); TOTAL PROTEIN 6.2 g/dl (6.1-8.1)
[2017-03-01 08:37] LABS: POSITIVE DIFF @See below
[2017-03-01] MEDS: ALBUTEROL/IPRATROPIUM (NEB) 3 ML AMP HHN SCH ×4 (08:50→19:51)
--- NOTE | 2017-03-01 10:27 | CONS ---
Date/Time of Note Date/Time of Note DATE: 03/01/17 TIME: 10:24 Assessment/Plan Assessment/Plan Additional Assessment/Plan 1. Azotemia has improved, will obtain felice Harika 2. Abd abscess is now being drained. 3. Feeding tube in place. 4. Status of biliary drainage, will rev with surgery 5. Abx per ID Consultation Date/Type/Reason Admit Date/Time Feb 26, 2017 at 13:57 Initial Consult Date 02/27/17 Type of Consultation: ID Detailed Summary Respiratory: No cough, No shortness of breath Cardiovascular: No chest pain Gastrointestinal: no complaints Exam/Review of Systems Vital Signs Vitals Vital Signs Date Time Temp Pulse Resp B/P Pulse Ox O2 Delivery O2 Flow Rate FiO2 03/01/17 10:04 97.6 95 17 95/52 95 03/01/17 08:50 21 02/28/17 14:33 Nasal Cannula 3.0 Intake and Output 02/28/17 02/28/17 03/01/17 15:00 23:00 07:00 Output Total 550 ml Balance -550 ml Exam Neck: No jvd Respiratory: clear to auscultation Cardiovascular: regular rate and rhythm Gastrointestinal: soft Extremities: No edema Results Result Diagram: 03/01/17 0605 03/01/17 0605 Results 24 hrs Laboratory Tests Test 02/28/17 11:50 02/28/17 13:42 02/28/17 17:44 02/28/17 20:40 Bedside Glucose 248 H 145 127 Potassium Level 4.6 Test 03/01/17 06:05 White Blood Count 7.6 # Red Blood Count 3.14 L Hemoglobin 8.6 L Hematocrit 29.7 L Mean Corpuscular Volume 94.6 Mean Corpuscular Hemoglobin 27.4 L Mean Corpuscular Hemoglobin Concent 29.0 L Red Cell Distribution Width 16.9 H Platelet Count 578 H Mean Platelet Volume 10.1 Neutrophils % 66.5 Lymphocytes % 16.1 Monocytes % 10.7 Eosinophils % 3.8 Basophils % 0.5 Nucleated Red Blood Cells % 0.0 Neutrophils # (Manual) 5.1 Lymphocytes # 1.2 Monocytes # 0.8 Eosinophils # 0.3 Basophils # 0.0 Nucleated Red Blood Cells # 0.0 Sodium Level 144 Potassium Level 4.0 Chloride Level 100 Carbon Dioxide Level 31 Anion Gap 17 H Blood Urea Nitrogen 67 H Creatinine 0.90 Glucose Level 137 # Calcium Level 9.1 Total Bilirubin 0.0 L Direct Bilirubin 0.00 Indirect Bilirubin 0.0 Aspartate Amino Transf (AST/SGOT) 22 Alanine Aminotransferase (ALT/SGPT) 29 Alkaline Phosphatase 208 H Total Protein 6.2 Albumin 2.4 L Globulin 3.80 H Albumin/Globulin Ratio 0.63 Random Vancomycin Level 11.8 Medications Medications Current Medications Ondansetron HCl (Zofran Inj) 4 mg Q6H PRN IV NAUSEA AND/OR VOMITING; Start at 16:00 Miscellaneous Information 1 ea NOTE XX ; Start 02/26/17 at 21:00 Glucose (Glutose) 15 gm Q15M PRN PO DECREASED GLUCOSE; Start 02/26/17 at 21:00 Glucose (Glutose) 22.5 gm Q15M PRN PO DECREASED GLUCOSE; Start 02/26/17 at 21: 00 Dextrose (D50w Syringe) 25 ml Q15M PRN IV DECREASED GLUCOSE; Start 02/26/17 at 21:00 Dextrose (D50w Syringe) 50 ml Q15M PRN IV DECREASED GLUCOSE; Start 02/26/17 at 21:00 Glucagon (Glucagen) 1 mg Q15M PRN IM DECREASED GLUCOSE; Start 02/26/17 at 21:00 Glucose (Glutose) 15 gm Q15M PRN BUCCAL DECREASED GLUCOSE; Start 02/26/17 at 21 :00 Miscellaneous Information This patient le... PRN PRN XX WOUND CARE; Start 02/27 at 03:30 Meropenem/Sodium Chloride (Merrem 1 Gm/50 ml (Pmx)) 50 ml @ 100 mls/hr Q8 IVPB Last administered on 03/01/17 06:00; Admin Dose 100 MLS/HR; Start 02/27/17 at 14:00 Diagnostic Test (Pha) 1 ea 1 ea 02 XX Last administered on 03/01/17 02:00; Admin Dose 1 EA; Start 02/28/17 at 02:00 Dextrose/Sodium Chloride (D5-NS) 1,000 ml @ 75 mls/hr [id number] IV Last administered on 02/28/17 21:41; Admin Dose 75 MLS/HR; Start 02/27/17 at 13:30 Epoetin Raj (Epogen (Esrd)) 10,000 units TuThSa@17 SC Last administered on 18:46; Admin Dose 10,000 UNITS; Start 02/27/17 at 17:00 Pantoprazole (Protonix Iv) 40 mg DAILY@02 IV Last administered on 03/01/17 02: 00; Admin Dose 40 MG; Start 02/28/17 at 02:00 Insulin Human NPH (Humulin N) 20 unit BID@08,20 SC Last administered on 21:40; Admin Dose 20 UNIT; Start 02/28/17 at 20:00 FAZAL LAFLEUR MD Mar 01, 2017 10:27
[2017-03-01] MEDS ORDERED: VANCOMYCIN 1.25 GM in SOD CHLORIDE 0.9% 250 ML IVPB SCH (11:30)
--- NOTE | 2017-03-01 14:58 | PN ---
Date/Time of Note Date/Time of Note DATE: 03/01/17 TIME: 14:48 Assessment/Plan VTE Prophylaxis VTE Prophylaxis Intervention: LMWH Lines/Catheters IV [facility] Peripheral IV Urinary Cath still in place: Yes Reason Cath still needed: other (indicate) Assessment/Plan Problems: (1) Leg pain, left Status: Acute Comment: Patient's Plavix has been on hold due to recent surgical procedure. Will resume anticoagulation with lovenox for now and check left venous Doppler for DVT. (2) Abdominal wall abscess Status: Acute Comment: Status post CT-guided drainage, continue antibiotics awaiting final culture results. (3) Gastrostomy tube dysfunction Status: Acute Comment: Hold feeding via G-tube for now and consult gastroenterology for further treatment plan. (4) Diabetes mellitus with hyperglycemia, with long-term current use of insulin Status: Chronic Subjective 24 Hr Interval Summary Free Text/Dictation Patient awake and alert. Complains of mild left calf pain. Complains of left arm IV line pain and swelling. Exam/Review of Systems Vital Signs Vitals Vital Signs Date Time Temp Pulse Resp B/P Pulse Ox O2 Delivery O2 Flow Rate FiO2 03/01/17 12:13 98.3 94 18 84/52 95 03/01/17 08:50 21 02/28/17 14:33 Nasal Cannula 3.0 Intake and Output 02/28/17 02/28/17 03/01/17 14:59 22:59 06:59 Output Total 550 ml Balance -550 ml Exam Constitutional: alert, frail, oriented Head: atraumatic, normocephalic Eyes: nl conjunctiva, nl sclera ENMT: mucosa pink and moist Respiratory: clear to auscultation, normal air movement Cardiovascular: edema, regular rate and rhythm Gastrointestinal: soft (G-tube dressing with purulence , there is a drain on the left flank and a drain on the right flank) Extremities: calf tenderness, normal pulses Results Result Diagram: 03/01/17 0603/01/17604 Results 24 hrs Laboratory Tests Test 02/28/17 17:44 02/28/17 20:40 03/01/17 06:05 03/01/17 08:23 Bedside Glucose 145 127 153 White Blood Count 7.6 # Red Blood Count 3.14 L Hemoglobin 8.6 L Hematocrit 29.7 L Mean Corpuscular Volume 94.6 Mean Corpuscular Hemoglobin 27.4 L Mean Corpuscular Hemoglobin Concent 29.0 L Red Cell Distribution Width 16.9 H Platelet Count 578 H Mean Platelet Volume 10.1 Neutrophils % 66.5 Lymphocytes % 16.1 Monocytes % 10.7 Eosinophils % 3.8 Basophils % 0.5 Nucleated Red Blood Cells % 0.0 Neutrophils # (Manual) 5.1 Lymphocytes # 1.2 Monocytes # 0.8 Eosinophils # 0.3 Basophils # 0.0 Nucleated Red Blood Cells # 0.0 Sodium Level 144 Potassium Level 4.0 Chloride Level 100 Carbon Dioxide Level 31 Anion Gap 17 H Blood Urea Nitrogen 67 H Creatinine 0.90 Glucose Level 137 # Calcium Level 9.1 Total Bilirubin 0.0 L Direct Bilirubin 0.00 Indirect Bilirubin 0.0 Aspartate Amino Transf (AST/SGOT) 22 Alanine Aminotransferase (ALT/SGPT) 29 Alkaline Phosphatase 208 H Total Protein 6.2 Albumin 2.4 L Globulin 3.80 H Albumin/Globulin Ratio 0.63 Random Vancomycin Level 11.8 Test 03/01/17 13:51 Bedside Glucose 152 Medications Medications Current Medications Ondansetron HCl (Zofran Inj) 4 mg Q6H PRN IV NAUSEA AND/OR VOMITING; Start at 16:00 Miscellaneous Information 1 ea NOTE XX ; Start 02/26/17 at 21:00 Glucose (Glutose) 15 gm Q15M PRN PO DECREASED GLUCOSE; Start 02/26/17 at 21:00 Glucose (Glutose) 22.5 gm Q15M PRN PO DECREASED GLUCOSE; Start 02/26/17 at 21: 00 Dextrose (D50w Syringe) 25 ml Q15M PRN IV DECREASED GLUCOSE; Start 02/26/17 at 21:00 Dextrose (D50w Syringe) 50 ml Q15M PRN IV DECREASED GLUCOSE; Start 02/26/17 at 21:00 Glucagon (Glucagen) 1 mg Q15M PRN IM DECREASED GLUCOSE; Start 02/26/17 at 21:00 Glucose (Glutose) 15 gm Q15M PRN BUCCAL DECREASED GLUCOSE; Start 02/26/17 at 21 :00 Miscellaneous Information This patient le... PRN PRN XX WOUND CARE; Start 02/27 at 03:30 Meropenem/Sodium Chloride (Merrem 1 Gm/50 ml (Pmx)) 50 ml @ 100 mls/hr Q8 IVPB Last administered on 03/01/17 14:07; Admin Dose 100 MLS/HR; Start 02/27/17 at 14:00 Diagnostic Test (Pha) 1 ea 1 ea 02 XX Last administered on 03/01/17 02:00; Admin Dose 1 EA; Start 02/28/17 at 02:00 Dextrose/Sodium Chloride (D5-NS) 1,000 ml @ 75 mls/hr [id number] IV Last administered on 02/28/17 21:41; Admin Dose 75 MLS/HR; Start 02/27/17 at 13:30 Epoetin Raj (Epogen (Esrd)) 10,000 units TuThSa@17 SC Last administered on 18:46; Admin Dose 10,000 UNITS; Start 02/27/17 at 17:00 Pantoprazole (Protonix Iv) 40 mg DAILY@02 IV Last administered on 03/01/17 02: 00; Admin Dose 40 MG; Start 02/28/17 at 02:00 Insulin Human NPH 25 unit 25 unit BID@08,20 SC ; Start 03/01/17 at 20:00 Vancomycin HCl/ Sodium Chloride (Vancocin/NS) 250 ml @ 83.333 mls/ hr ONCE IVPB Last administered on 03/01/17 11:31; Admin Dose 83.333 MLS/HR; Start at 11:30; Stop 03/01/17 at 17:00 SONALI WALKER MD Mar 01, 2017 14:58
--- NOTE | 2017-03-01 16:03 | CONS ---
Date/Time of Note Date/Time of Note DATE: 03/01/17 TIME: 16:01 Consult Date/Type/Reason Admit Date/Time Feb 26, 2017 at 13:57 Initial Consult Date 02/27/17 Type of Consultation: Pulm Subjective No events. Objective Vital Signs Date Time Temp Pulse Resp B/P Pulse Ox O2 Delivery O2 Flow Rate FiO2 03/01/17 12:13 98.3 94 18 84/52 95 03/01/17 08:50 21 02/28/17 14:33 Nasal Cannula 3.0 Intake and Output 02/28/17 02/28/17 03/01/17 14:59 22:59 06:59 Output Total 550 ml Balance -550 ml Exam HEENT: Neck supple; mild JVD; no LAD CVS: RRR, S1 and S2 CHEST: Bibasilar rales ABD: Soft, NT, + BS EXT: No c/c/ tr edema Results/Medications Result Diagram: 03/01/17 0605 03/01/17 0605 Results 24 hrs Laboratory Tests Test 02/28/17 17:44 02/28/17 20:40 03/01/17 06:05 03/01/17 08:23 Bedside Glucose 145 127 153 White Blood Count 7.6 # Red Blood Count 3.14 L Hemoglobin 8.6 L Hematocrit 29.7 L Mean Corpuscular Volume 94.6 Mean Corpuscular Hemoglobin 27.4 L Mean Corpuscular Hemoglobin Concent 29.0 L Red Cell Distribution Width 16.9 H Platelet Count 578 H Mean Platelet Volume 10.1 Neutrophils % 66.5 Lymphocytes % 16.1 Monocytes % 10.7 Eosinophils % 3.8 Basophils % 0.5 Nucleated Red Blood Cells % 0.0 Neutrophils # (Manual) 5.1 Lymphocytes # 1.2 Monocytes # 0.8 Eosinophils # 0.3 Basophils # 0.0 Nucleated Red Blood Cells # 0.0 Sodium Level 144 Potassium Level 4.0 Chloride Level 100 Carbon Dioxide Level 31 Anion Gap 17 H Blood Urea Nitrogen 67 H Creatinine 0.90 Glucose Level 137 # Calcium Level 9.1 Total Bilirubin 0.0 L Direct Bilirubin 0.00 Indirect Bilirubin 0.0 Aspartate Amino Transf (AST/SGOT) 22 Alanine Aminotransferase (ALT/SGPT) 29 Alkaline Phosphatase 208 H Total Protein 6.2 Albumin 2.4 L Globulin 3.80 H Albumin/Globulin Ratio 0.63 Random Vancomycin Level 11.8 Test 03/01/17 13:51 Bedside Glucose 152 Medications Current Medications Ondansetron HCl (Zofran Inj) 4 mg Q6H PRN IV NAUSEA AND/OR VOMITING; Start at 16:00 Miscellaneous Information 1 ea NOTE XX ; Start 02/26/17 at 21:00 Glucose (Glutose) 15 gm Q15M PRN PO DECREASED GLUCOSE; Start 02/26/17 at 21:00 Glucose (Glutose) 22.5 gm Q15M PRN PO DECREASED GLUCOSE; Start 02/26/17 at 21: 00 Dextrose (D50w Syringe) 25 ml Q15M PRN IV DECREASED GLUCOSE; Start 02/26/17 at 21:00 Dextrose (D50w Syringe) 50 ml Q15M PRN IV DECREASED GLUCOSE; Start 02/26/17 at 21:00 Glucagon (Glucagen) 1 mg Q15M PRN IM DECREASED GLUCOSE; Start 02/26/17 at 21:00 Glucose (Glutose) 15 gm Q15M PRN BUCCAL DECREASED GLUCOSE; Start 02/26/17 at 21 :00 Miscellaneous Information This patient le... PRN PRN XX WOUND CARE; Start 02/27 at 03:30 Meropenem/Sodium Chloride (Merrem 1 Gm/50 ml (Pmx)) 50 ml @ 100 mls/hr Q8 IVPB Last administered on 03/01/17 14:07; Admin Dose 100 MLS/HR; Start 02/27/17 at 14:00 Diagnostic Test (Pha) 1 ea 1 ea 02 XX Last administered on 03/01/17 02:00; Admin Dose 1 EA; Start 02/28/17 at 02:00 Dextrose/Sodium Chloride (D5-NS) 1,000 ml @ 75 mls/hr [id number] IV Last administered on 02/28/17 21:41; Admin Dose 75 MLS/HR; Start 02/27/17 at 13:30 Epoetin Raj (Epogen (Esrd)) 10,000 units TuThSa@17 SC Last administered on 18:46; Admin Dose 10,000 UNITS; Start 02/27/17 at 17:00 Pantoprazole 40 mg 40 mg DAILY@02 IV Last administered on 03/01/17 02:00; Admin Dose 40 MG; Start 02/28/17 at 02:00 Vancomycin HCl/ Sodium Chloride (Vancocin/NS) 250 ml @ 83.333 mls/ hr ONCE IVPB Last administered on 03/01/17t 11:31; Admin Dose 83.333 MLS/HR; Start at 11:30; Stop 03/01/17 at 17:00 Enoxaparin Sodium (Lovenox) 40 mg BID SC ; Start 03/01/17 at 21:00 Insulin Human NPH (Humulin N) 20 unit BID@08,20 SC ; Start 03/01/17 at 20:00 Assessment/Plan Additional Assessment/Plan IMP: 1. Mild Hypoxemia--likely due to volume overload, now improved 2. Azotemia--improved 3. Abdominal wall abscess RECS: 1. Titrate FiO2 2. Follow urine output and renal fxn LOGAN BURKETT MD Mar 01, 2017 16:03
[2017-03-01] MEDS: EPOETIN 10000 UNITS/1 ML INJ (ESRD) SC SCH (17:58)
--- NOTE | 2017-03-01 19:12 | PN ---
Date/Time of Note Date/Time of Note DATE: 03/01/17 TIME: 19:12 Assessment/Plan Lines/Catheters IV Catheter Type (from Nrs): Peripheral IV Rivas in Place (from Nrs): Yes Assessment/Plan Assessment/Plan [facility] Progress Note Date of Service: 03/01/2017 Place of service: [facility] fifth floor [facility] telemetry Today's Assessment & Plan: Overall stable and appears improved. Left abdominal wall abscess seems to be controlled with the drain. Remaining issues are PEG exchange to GJ tube and replacement of the percutaneous cholecystostomy drain. Will work with interventional radiology to schedule. No indication for acute surgical intervention. With above assessment, I've recommended the following for today: 1. Continue current cares 2. IR interventions as above 3. Consider formal evaluation of swallowing while patient is in-house and possible resumption of oral intake if she passes Thank you again for your great care of this very pleasant patient and wonderful family. If there are any questions, please feel free to call me at [phone]. Nature of presenting problem: High severity Please note that, given the extensive number of diagnoses or management options , the extensive amount and/or complexity of data needed to be reviewed, and I risk of complications and/or morbidity or mortality, this qualifies as high complexity type of decision-making. Disclaimer: Inadvertent spelling and grammatical errors are likely due to EHR/ dictation software use and do not reflect on the quality of delivered patient care. Also, please note that the electronic time recorded on this node does not necessarily reflect the actual time of the visit. Updated Clinical Summary: A very pleasant 71-year-old lady with multiple comorbid issues including BMI of 35.6 as well as what has been in the hospital since 09/2016 being found unresponsive and multiple issues including congestive heart failure, acute renal failure due to acute tubular necrosis requiring dialysis, urinary tract infection with bacteremia and multiple other issues, who was found to have possible signs of acute cholecystitis on recent imaging. D/c to SNF ([place] ) 12/25/16. Readmitted to [facility] for abdominal wall pain on the left side on 01/16/2017. Urinary tract infection treated for E. coli. Thoracentesis with removal of approximately 1 L of fluid from her chest 2016. Percutaneous gallbladder drain exchange 01/18/2017. Feeding tube replaced 01/23/2017 by GI (Dr. Helm). Readmitted to [facility] 2016 with abdominal wall abscess. COMORBIDITIES: 1. BMI of 35.6. 2. Acute renal failure (ATN), on maintenance hemodialysis (Friday, , Friday). 3. Congestive heart failure. 4. Anemia. 5. Hypocalcemia. 6. Hypoalbuminemia and malnutrition. 7. Peripheral vascular disease with gangrene of toes of both feet. 8. Recent history of respiratory failure. 9. History of dysphagia requiring PEG placement and feedings. 10. Diabetes mellitus. 11. Leukocytosis from various sources. 12. Funguria with Erica glabrata and Erica albicans of the urine. 13. Escherichia coli and Enterococcus urinary tract infection 10/29/2016. 14. Escherichia coli bacteremia 12/02/2016 (x2 cultures). 15. Repeat culture of the urine 12/02/2016 with E. coli, enterococcus species and Klebsiella pneumoniae, extended-spectrum beta-lactamase. 16. Repeat bacteremia 12/08/2016 with Escherichia coli. 17. Urine positive for Erica albicans 12/11/2016. 18. Clostridium difficile colitis negative on a few stool samples. 19. Bilateral pleural effusions. 20. 2 mm calcified granuloma in the right lower lobe. 21. CT scan of abdomen and pelvis 12/13/2016 showing large amount of pericholecystic fluid with distention of the gallbladder, which could be of acute cholecystitis. 22. Tumefaction sludge, poorly visualized gallstones or soft tissue masses are suspected within the lumen of the distended gallbladder. 23. Anasarca. 24. Status post splenectomy. 25. A 2.8 cm left parapelvic cyst and an adjacent 1.4 cm simple cyst lateral upper portion of the lower third left kidney noted. 26. Atherosclerotic vascular disease. 27. Osteoarthritis of the thoracic and lumbosacral spine. 28. History of acute ST elevation myocardial infarction, inferior wall, status post code STEMI with stent placement, as well as temporary pacer wire. 29. Hyperlipidemia. 30. Possible aspiration pneumonia. 31. S/p CT-guided percutaneous transhepatic cholecystostomy drain placement 06/22, [facility]. 32. Feeding tube replaced 01/23/2017 by GI (Dr. Helm) at [facility]. Subjective: No major events or complaints; no abd pain and under control with medications; no n/v/d; no sob or cp; + flatus; + BM; + activity Objective: Vitals: See below I's & O's: See below Exam: GENERAL: On exam, the patient was lying in bed and appeared to be comfortable and in no acute distress. ABDOMEN: Soft, nontender and nondistended. Percutaneous drain with purulent fluid. There are no peritoneal signs or guarding. SKIN: Skin appears to be pink and feels warm to touch. NEUROLOGIC: Patient is awake, alert, and follows commands appropriately. Able to speak in slightly higher volume than previously. Labs: See below Exam/Review of Systems Vital Signs Vitals Vital Signs Date Time Temp Pulse Resp B/P Pulse Ox O2 Delivery O2 Flow Rate FiO2 03/01/17 16:15 97.6 98 18 123/58 98 03/01/17 08:50 21 02/28/17 14:33 Nasal Cannula 3.0 Intake and Output 02/28/17 02/28/17 03/01/17 15:00 23:00 07:00 Output Total 550 ml Balance -550 ml Results Result Diagram: 03/01/17 0605 03/01/17 0605 SHANA ROSARIO M.D. Mar 01, 2017 19:12
[2017-03-01] MEDS ORDERED: NPH, HUMAN INSULIN ISOPHANE 3ML VIAL SC SCH (20:00)
[2017-03-01] MEDS: NPH, HUMAN INSULIN ISOPHANE 3ML VIAL SC SCH (21:23)
[2017-03-01] MEDS: ENOXAPARIN 40 MG/0.4 ML SYG SC SCH (21:29)
[2017-03-01] MEDS: DEXTROSE 5%-0.9% NACL 1,000 ML IV SCH (23:30)
[2017-03-02] VITALS (12 sets, daily range): BP systolic 110–129; BP diastolic 57–68; PULSE 91–106; RESP 15–19
[2017-03-02] MEDS: DEXTROSE 5%-0.9% NACL 1,000 ML IV SCH ×4 (01:24→14:44)
[2017-03-02] MEDS: ACCU-CHEK XX SCH (02:35)
[2017-03-02] MEDS: PANTOPRAZOLE 40 MG INJ IV SCH (02:44)
[2017-03-02] MEDS: MEROPENEM 1 GM/50ML(PMX) 50 ML IVPB SCH ×3 (06:25→22:10)
[2017-03-02] MEDS: INSULIN ASPART [NOVOLOG] 3 ML PEN SC SCH ×4 (08:00→20:32)
[2017-03-02] MEDS: NPH, HUMAN INSULIN ISOPHANE 3ML VIAL SC SCH ×2 (08:00→20:32)
[2017-03-02] MEDS: ENOXAPARIN 40 MG/0.4 ML SYG SC SCH (08:32)
[2017-03-02] MEDS: ALBUTEROL/IPRATROPIUM (NEB) 3 ML AMP HHN SCH ×3 (08:38→19:52)
[2017-03-02 08:48] LABS: ABNORMAL IP MESSAGE 1; HEMATOCRIT 29.4 % (37.0-47.0); HEMOGLOBIN 8.4 g/dl (12.0-16.0); MEAN CORPUSCULAR HGB CONC 28.6 g/dl (32.0-37.0); MEAN CORPUSCULAR VOLUME 94.5 fl (82.0-101.0); MEAN PLATELET VOLUME 9.9 fl (7.4-10.4); PLATELET COUNT 593 10^3/UL (140-415); RED BLOOD COUNT 3.11 10^6/ul (4.20-5.40); WHITE BLOOD COUNT 6.8 10^3/ul (4.8-10.8)
[2017-03-02 09:02] LABS: POSITIVE DIFF @See below
--- NOTE | 2017-03-02 09:29 | CONS ---
Date/Time of Note Date/Time of Note DATE: 03/02/17 TIME: 09:19 Assessment/Plan Assessment/Plan Chief Complaint/Hosp Course 1) UTI, kleb +ESBL in urine change zosyn to merrem await final report on urine cx 02/28 - kleb +ESBL present in urine cx continue with merrem 2) hx of choleycystitis on CT the gall bladder looks ok re-consult dr. lomax to see if drainage tube can be removed 03/01 - await removal of gall bladder drain 3) abd wall fluid collection this tracks down to the pelvis and likely emanates from the g-tube will order CT abd with oral contrast via the PEG cx from around the g-tube pt may need surgical intervention for this will consider WBC scan continue with vanco/merrem get nasal swab for MRSA 02/28 - pt to get fluid collection surgically drained when she is medically cleared continue with vanco/merrem 03/01 - drain was placed for abd wall abscess and is draining tube feed looking fluid await d/c of PEG and replacement await culture results, continue with vanco/merrem 03/02 - drainage has MRSA and kleb +ESBL from abd wall continue with vanco/merrem not sure that pig tail cath will be able to drain all of this but a fair amount is coming out told nurse to get strict output on drainage consider swallow eval to see if pt still needs a g-tube 4) CAD hx of CABG 5) hx of anoxic encephalopathy 02/28 - pt is back to baseline Problems: Consultation Date/Type/Reason Admit Date/Time Feb 26, 2017 at 13:57 Initial Consult Date 02/27/17 Type of Consultation: ID [id number] HR Interval Summary Free Text/Dictation pt is stable no V, D still NPO and hungry Exam/Review of Systems Vital Signs Vitals Vital Signs Date Time Temp Pulse Resp B/P Pulse Ox O2 Delivery O2 Flow Rate FiO2 03/02/17 08:43 97 18 93 21 03/02/17 08:30 98.0 127/61 03/02/17 04:00 Room Air 03/01/17 08:37 3.0 Intake and Output 03/01/17 03/01/17 03/02/17 15:00 23:00 07:00 Intake Total 800 ml 900 ml Output Total 925 ml 1100 ml Balance -125 ml -200 ml Exam Constitutional: alert, oriented Eyes: nl sclera ENMT: mucosa pink and moist Respiratory: clear to auscultation Cardiovascular: regular rate and rhythm Gastrointestinal: other (firmness to RLQ, new drain still tube feeds in collection bag, only small bilious material in GB drain), soft Results Result Diagram: 03/02/17 0700 03/01/17 0605 Results 24 hrs Laboratory Tests Test 03/01/17 13:51 03/01/17 17:24 03/01/17 21:18 03/02/17 02:10 Bedside Glucose 152 132 131 119 Test 03/02/17 07:00 03/02/17 07:43 White Blood Count 6.8 Red Blood Count 3.11 L Hemoglobin 8.4 L Hematocrit 29.4 L Mean Corpuscular Volume 94.5 Mean Corpuscular Hemoglobin 27.0 L Mean Corpuscular Hemoglobin Concent 28.6 L Red Cell Distribution Width 17.0 H Platelet Count 593 H Mean Platelet Volume 9.9 Neutrophils % Lymphocytes % Monocytes % Eosinophils % Basophils % Nucleated Red Blood Cells % 0.0 Neutrophils # (Manual) 4.2 Lymphocytes # Monocytes # Eosinophils # Basophils # Nucleated Red Blood Cells # Bedside Glucose 84 Medications Medications Current Medications Ondansetron HCl (Zofran Inj) 4 mg Q6H PRN IV NAUSEA AND/OR VOMITING; Start at 16:00 Miscellaneous Information 1 ea NOTE XX ; Start 02/26/17 at 21:00 Glucose (Glutose) 15 gm Q15M PRN PO DECREASED GLUCOSE; Start 02/26/17 at 21:00 Glucose (Glutose) 22.5 gm Q15M PRN PO DECREASED GLUCOSE; Start 02/26/17 at 21: 00 Dextrose (D50w Syringe) 25 ml Q15M PRN IV DECREASED GLUCOSE; Start 02/26/17 at 21:00 Dextrose (D50w Syringe) 50 ml Q15M PRN IV DECREASED GLUCOSE; Start 02/26/17 at 21:00 Glucagon (Glucagen) 1 mg Q15M PRN IM DECREASED GLUCOSE; Start 02/26/17 at 21:00 Glucose (Glutose) 15 gm Q15M PRN BUCCAL DECREASED GLUCOSE; Start 02/26/17 at 21 :00 Miscellaneous Information This patient le... PRN PRN XX WOUND CARE; Start 02/27 at 03:30 Meropenem/Sodium Chloride (Merrem 1 Gm/50 ml (Pmx)) 50 ml @ 100 mls/hr Q8 IVPB Last administered on 03/02/17 06:25; Admin Dose 100 MLS/HR; Start 02/27/17 at 14:00 Diagnostic Test (Pha) 1 ea 1 ea 02 XX Last administered on 03/02/17 02:35; Admin Dose 1 EA; Start 02/28/17 at 02:00 Dextrose/Sodium Chloride (D5-NS) 1,000 ml @ 75 mls/hr [id number] IV Last administered on 03/02/17 01:24; Admin Dose 75 MLS/HR; Start 02/27/17 at 13:30 Epoetin Raj (Epogen (Esrd)) 10,000 units TuThSa@17 SC Last administered on 17:58; Admin Dose 10,000 UNITS; Start 02/27/17 at 17:00 Pantoprazole (Protonix Iv) 40 mg DAILY@02 IV Last administered on 03/02/17 02: 44; Admin Dose 40 MG; Start 02/28/17 at 02:00 Enoxaparin Sodium (Lovenox) 40 mg BID SC Last administered on 03/02/17 08:32; Admin Dose 40 MG; Start 03/01/17 at 21:00 Insulin Human NPH (Humulin N) 20 unit BID@08,20 SC Last administered on 21:23; Admin Dose 20 UNIT; Start 03/01/17 at 20:00 TR GOODEN MD Mar 02, 2017 09:29
[2017-03-02 09:31] LABS: CALCIUM 8.3 mg/dl (8.4-10.2); CREATININE 0.73 mg/dl (0.44-1.00); POTASSIUM 3.7 mmol/L (3.5-5.1)
[2017-03-02] MEDS ORDERED: DEXTROSE 10% 1,000 ML IV SCH (10:00)
[2017-03-02] MEDS ORDERED: morphine 2 MG INJ IV PRN (10:00)
--- NOTE | 2017-03-02 10:02 | CONS ---
Date/Time of Note Date/Time of Note DATE: 03/02/17 TIME: 09:57 Assessment/Plan Assessment/Plan Additional Assessment/Plan 1. Rev with surgery-Biliary drain to remain in place as well as present drain needed for gastric perf, new tube to be placed in jejunum for feeding, will start peripheral tpn. 2. I asked for nutritional consult. 3. Mild azotemia, urine sodium pending to eval vol status. 4. Right leg pain, despite present anticoag will obtain venous studies 5. To remain npo for now except ice chips Consultation Date/Type/Reason Admit Date/Time Feb 26, 2017 at 13:57 Initial Consult Date 02/27/17 Type of Consultation: ID Detailed Summary Respiratory: No shortness of breath Cardiovascular: No chest pain Gastrointestinal: other (mild abd discomfort poorly localized) Genitourinary: other (guevara in place) Neurologic: other (c/o right leg pain) Exam/Review of Systems Vital Signs Vitals Vital Signs Date Time Temp Pulse Resp B/P Pulse Ox O2 Delivery O2 Flow Rate FiO2 03/02/17 08:43 97 18 93 21 03/02/17 08:30 98.0 127/61 03/02/17 04:00 Room Air 03/01/17 08:37 3.0 Intake and Output 03/01/17 03/01/17 03/02/17 15:00 23:00 07:00 Intake Total 800 ml 900 ml Output Total 925 ml 1100 ml Balance -125 ml -200 ml Exam Neck: No jvd Respiratory: clear to auscultation Cardiovascular: regular rate and rhythm Gastrointestinal: other (right is soft, drain in place, firm left ant lumbar area but not tender, drain in place, g-tube in place) Results Result Diagram: 03/02/17 0700 03/02/17 0700 Results 24 hrs Laboratory Tests Test 03/01/17 13:51 03/01/17 17:24 03/01/17 21:18 03/02/17 02:10 Bedside Glucose 152 132 131 119 Test 03/02/17 07:00 03/02/17 07:43 White Blood Count 6.8 Red Blood Count 3.11 L Hemoglobin 8.4 L Hematocrit 29.4 L Mean Corpuscular Volume 94.5 Mean Corpuscular Hemoglobin 27.0 L Mean Corpuscular Hemoglobin Concent 28.6 L Red Cell Distribution Width 17.0 H Platelet Count 593 H Mean Platelet Volume 9.9 Neutrophils % Lymphocytes % Monocytes % Eosinophils % Basophils % Nucleated Red Blood Cells % 0.0 Neutrophils # (Manual) 4.2 Lymphocytes # Monocytes # Eosinophils # Basophils # Nucleated Red Blood Cells # Sodium Level 145 H Potassium Level 3.7 Chloride Level 103 Carbon Dioxide Level 28 Anion Gap 18 H Blood Urea Nitrogen 54 H Creatinine 0.73 Glucose Level 80 # Calcium Level 8.3 L Bedside Glucose 84 Medications Medications Current Medications Ondansetron HCl (Zofran Inj) 4 mg Q6H PRN IV NAUSEA AND/OR VOMITING; Start at 16:00 Miscellaneous Information 1 ea NOTE XX ; Start 02/26/17 at 21:00 Glucose (Glutose) 15 gm Q15M PRN PO DECREASED GLUCOSE; Start 02/26/17 at 21:00 Glucose (Glutose) 22.5 gm Q15M PRN PO DECREASED GLUCOSE; Start 02/26/17 at 21: 00 Dextrose (D50w Syringe) 25 ml Q15M PRN IV DECREASED GLUCOSE; Start 02/26/17 at 21:00 Dextrose (D50w Syringe) 50 ml Q15M PRN IV DECREASED GLUCOSE; Start 02/26/17 at 21:00 Glucagon (Glucagen) 1 mg Q15M PRN IM DECREASED GLUCOSE; Start 02/26/17 at 21:00 Glucose (Glutose) 15 gm Q15M PRN BUCCAL DECREASED GLUCOSE; Start 02/26/17 at 21 :00 Miscellaneous Information This patient le... PRN PRN XX WOUND CARE; Start 02/27 at 03:30 Meropenem/Sodium Chloride (Merrem 1 Gm/50 ml (Pmx)) 50 ml @ 100 mls/hr Q8 IVPB Last administered on 03/02/17 06:25; Admin Dose 100 MLS/HR; Start 02/27/17 at 14:00 Diagnostic Test (Pha) 1 ea 1 ea 02 XX Last administered on 03/02/17 02:35; Admin Dose 1 EA; Start 02/28/17 at 02:00 Dextrose/Sodium Chloride (D5-NS) 1,000 ml @ 75 mls/hr [id number] IV Last administered on 03/02/17 01:24; Admin Dose 75 MLS/HR; Start 02/27/17 at 13:30 Epoetin Raj (Epogen (Esrd)) 10,000 units TuThSa@17 SC Last administered on 17:58; Admin Dose 10,000 UNITS; Start 02/27/17 at 17:00 Pantoprazole (Protonix Iv) 40 mg DAILY@02 IV Last administered on 03/02/17 02: 44; Admin Dose 40 MG; Start 02/28/17 at 02:00 Enoxaparin Sodium (Lovenox) 40 mg BID SC Last administered on 03/02/17 08:32; Admin Dose 40 MG; Start 03/01/17 at 21:00 Insulin Human NPH (Humulin N) 20 unit BID@08,20 SC Last administered on 21:23; Admin Dose 20 UNIT; Start 03/01/17 at 20:00 FAZAL LAFLEUR MD Mar 02, 2017 10:02
[2017-03-02] MEDS ORDERED: MISCELLANEOUS IV SOLUTION 1,000 ML IV SCH (10:30)
--- NOTE | 2017-03-02 13:34 | RADRPT ---
PROCEDURE: US bilateral lower extremity veins. CLINICAL INDICATION: Bilateral leg pain and swelling. TECHNIQUE: Multiple longitudinal and transverse images of the bilateral lower extremity veins were obtained with sandhu scale and color Doppler imaging. The common femoral vein, femoral vein, and popl iteal vein were evaluated. 2D grayscale measurements with compression sonography, color Doppler, and pulsed Doppler with augmentation. COMPARISON: No prior studies are available for comparison. FINDINGS: On the right side, there is lack of compressibility and lack of flow in the mid and lower femoral ve in consistent with deep venous thrombosis. The right common femoral vein, upper femoral vein, and p opliteal vein demonstrate normal compressibility. On the left side, there is normal flow with augmentation and compressibility throughout. IMPRESSION: 1. Deep venous thrombosis of the right mid and lower femoral vein. 2. Otherwise unremarkable study. Call report: A call report of the findings was made to Dr. Duncan on 03/02/2017 at 1330 hours. RPTAT: QQ .Arnaldo Back MD, MD Date Time Electronically viewed and signed by .Arnaldo Back MD, on 03/02/2017 13:33 .R/
--- NOTE | 2017-03-02 13:47 | CONS ---
Date/Time of Note Date/Time of Note DATE: 03/02/17 TIME: 13:46 Consult Date/Type/Reason Admit Date/Time Feb 26, 2017 at 13:57 Initial Consult Date 02/27/17 Type of Consultation: Pulm Subjective No events. Sleeping at time of visit. Objective Vital Signs Date Time Temp Pulse Resp B/P Pulse Ox O2 Delivery O2 Flow Rate FiO2 03/02/17 12:52 99.0 101 18 128/66 98 03/02/17 08:43 21 03/02/17 04:00 Room Air 03/01/17 08:37 3.0 Intake and Output 03/01/17 03/01/17 03/02/17 15:00 23:00 07:00 Intake Total 800 ml 900 ml Output Total 925 ml 1100 ml Balance -125 ml -200 ml Exam HEENT: Neck supple; mild JVD; no LAD CVS: RRR, S1 and S2 CHEST: Bibasilar rales ABD: Soft, NT, + BS EXT: No c/c/ tr edema Results/Medications Result Diagram: 03/02/17 0700 03/02/17 0700 Results 24 hrs Laboratory Tests Test 03/01/17 13:51 03/01/17 17:24 03/01/17 21:18 03/02/17 02:10 Bedside Glucose 152 132 131 119 Test 03/02/17 07:00 03/02/17 07:43 03/02/17 12:04 White Blood Count 6.8 Red Blood Count 3.11 L Hemoglobin 8.4 L Hematocrit 29.4 L Mean Corpuscular Volume 94.5 Mean Corpuscular Hemoglobin 27.0 L Mean Corpuscular Hemoglobin Concent 28.6 L Red Cell Distribution Width 17.0 H Platelet Count 593 H Mean Platelet Volume 9.9 Neutrophils % Lymphocytes % Monocytes % Eosinophils % Basophils % Nucleated Red Blood Cells % 0.0 Neutrophils # (Manual) 4.2 Lymphocytes # Monocytes # Eosinophils # Basophils # Nucleated Red Blood Cells # Sodium Level 145 H Potassium Level 3.7 Chloride Level 103 Carbon Dioxide Level 28 Anion Gap 18 H Blood Urea Nitrogen 54 H Creatinine 0.73 Glucose Level 80 # Calcium Level 8.3 L Bedside Glucose 84 135 Medications Current Medications Ondansetron HCl (Zofran Inj) 4 mg Q6H PRN IV NAUSEA AND/OR VOMITING; Start at 16:00 Miscellaneous Information 1 ea NOTE XX ; Start 02/26/17 at 21:00 Glucose (Glutose) 15 gm Q15M PRN PO DECREASED GLUCOSE; Start 02/26/17 at 21:00 Glucose (Glutose) 22.5 gm Q15M PRN PO DECREASED GLUCOSE; Start 02/26/17 at 21: 00 Dextrose (D50w Syringe) 25 ml Q15M PRN IV DECREASED GLUCOSE; Start 02/26/17 at 21:00 Dextrose (D50w Syringe) 50 ml Q15M PRN IV DECREASED GLUCOSE; Start 02/26/17 at 21:00 Glucagon (Glucagen) 1 mg Q15M PRN IM DECREASED GLUCOSE; Start 02/26/17 at 21:00 Glucose (Glutose) 15 gm Q15M PRN BUCCAL DECREASED GLUCOSE; Start 02/26/17 at 21 :00 Miscellaneous Information This patient le... PRN PRN XX WOUND CARE; Start 02/27 at 03:30 Meropenem/Sodium Chloride (Merrem 1 Gm/50 ml (Pmx)) 50 ml @ 100 mls/hr Q8 IVPB Last administered on 03/02/17 06:25; Admin Dose 100 MLS/HR; Start 02/27/17 at 14:00 Diagnostic Test (Pha) 1 ea 1 ea 02 XX Last administered on 03/02/17 02:35; Admin Dose 1 EA; Start 02/28/17 at 02:00 Dextrose/Sodium Chloride (D5-NS) 1,000 ml @ 75 mls/hr [id number] IV Last administered on 03/02/17 01:24; Admin Dose 75 MLS/HR; Start 02/27/17 at 13:30; Stop 03/02/17 at 15:00 Epoetin Raj (Epogen (Esrd)) 10,000 units TuThSa@17 SC Last administered on 17:58; Admin Dose 10,000 UNITS; Start 02/27/17 at 17:00 Pantoprazole (Protonix Iv) 40 mg DAILY@02 IV Last administered on 03/02/17 02: 44; Admin Dose 40 MG; Start 02/28/17 at 02:00 Insulin Human NPH (Humulin N) 8 unit BID@08,20 SC ; Start 03/02/17 at 20:00 Morphine Sulfate 1 mg 1 mg Q6H PRN IV PAIN LEVEL 1-5; Start 03/02/17 at 10:00 Dextrose/Sodium Chloride (Custom Iv) 1,000 ml @ 60 mls/hr [id number] IV ; Start at 10:30; Stop 03/02/17 at 15:00 Enoxaparin Sodium (Lovenox) 90 mg Q12 SC ; Start 03/02/17 at 21:00 Assessment/Plan Additional Assessment/Plan IMP: 1. Mild Hypoxemia--likely due to volume overload, now improved 2. Azotemia--improved 3. Abdominal wall abscess RECS: 1. Titrate FiO2--> off 2. Follow urine output and renal fxn 3. Optimize nutritional status LOGAN BURKETT MD Mar 02, 2017 13:47
--- NOTE | 2017-03-02 15:54 | PN ---
Date/Time of Note Date/Time of Note DATE: 03/02/17 TIME: 15:43 Assessment/Plan VTE Prophylaxis VTE Prophylaxis Intervention: LMWH Lines/Catheters IV C[facility]ter Type ([facility] Peripheral IV Urinary Cath still in place: Yes Reason Cath still needed: other (indicate) (weakness, bedbound status) Assessment/Plan Problems: (1) DVT (deep venous thrombosis) Status: Acute Comment: starting Lovenox for Right lower extremity DVT Qualifiers: DVT location: lower extremity Affected thrombotic vein of extremity: femoral Chronicity: acute Laterality: right Qualified Code: I82.411 - Acute deep vein thrombosis (DVT) of femoral vein of right lower extremity (2) Abdominal wall abscess Status: Acute Comment: s/p drainage, continue antibiotics (3) Gastrostomy tube dysfunction Status: Acute Comment: may need replacement with GJ tube but will get speech therapy evaluation for swallowing to see if she still requires tube feeding. Subjective 24 Hr Interval Summary Free Text/Dictation Patient has no complaints. Exam/Review of Systems Vital Signs Vitals Vital Signs Date Time Temp Pulse Resp B/P Pulse Ox O2 Delivery O2 Flow Rate FiO2 03/02/17 14:00 100 20 93 21 03/02/17 12:52 99.0 128/66 03/02/17 04:00 Room Air 03/01/17 08:37 3.0 Intake and Output 03/01/17 03/01/17 03/02/17 15:00 23:00 07:00 Intake Total 800 ml 900 ml Output Total 925 ml 1100 ml Balance -125 ml -200 ml Exam Constitutional: alert, oriented Respiratory: clear to auscultation, normal air movement Cardiovascular: regular rate and rhythm Gastrointestinal: other (GT site, RUQ drain site and LUQ drain site all clean and dry) Extremities: other (gangrenous right great toe and left 2nd toe) Results Result Diagram: 03/02/17 0700 03/02/17 0700 Results 24 hrs Laboratory Tests Test 03/01/17 17:24 03/01/17 21:18 03/02/17 02:10 03/02/17 07:00 Bedside Glucose 132 131 119 White Blood Count 6.8 Red Blood Count 3.11 L Hemoglobin 8.4 L Hematocrit 29.4 L Mean Corpuscular Volume 94.5 Mean Corpuscular Hemoglobin 27.0 L Mean Corpuscular Hemoglobin Concent 28.6 L Red Cell Distribution Width 17.0 H Platelet Count 593 H Mean Platelet Volume 9.9 Neutrophils % Lymphocytes % Monocytes % Eosinophils % Basophils % Nucleated Red Blood Cells % 0.0 Neutrophils # (Manual) 4.2 Lymphocytes # Monocytes # Eosinophils # Basophils # Nucleated Red Blood Cells # Sodium Level 145 H Potassium Level 3.7 Chloride Level 103 Carbon Dioxide Level 28 Anion Gap 18 H Blood Urea Nitrogen 54 H Creatinine 0.73 Glucose Level 80 # Calcium Level 8.3 L Test 03/02/17 07:43 03/02/17 12:04 Bedside Glucose 84 135 Medications Medications Current Medications Ondansetron HCl (Zofran Inj) 4 mg Q6H PRN IV NAUSEA AND/OR VOMITING; Start at 16:00 Miscellaneous Information 1 ea NOTE XX ; Start 02/26/17 at 21:00 Glucose (Glutose) 15 gm Q15M PRN PO DECREASED GLUCOSE; Start 02/26/17 at 21:00 Glucose (Glutose) 22.5 gm Q15M PRN PO DECREASED GLUCOSE; Start 02/26/17 at 21: 00 Dextrose (D50w Syringe) 25 ml Q15M PRN IV DECREASED GLUCOSE; Start 02/26/17 at 21:00 Dextrose (D50w Syringe) 50 ml Q15M PRN IV DECREASED GLUCOSE; Start 02/26/17 at 21:00 Glucagon (Glucagen) 1 mg Q15M PRN IM DECREASED GLUCOSE; Start 02/26/17 at 21:00 Glucose (Glutose) 15 gm Q15M PRN BUCCAL DECREASED GLUCOSE; Start 02/26/17 at 21 :00 Miscellaneous Information This patient le... PRN PRN XX WOUND CARE; Start 02/27 at 03:30 Meropenem/Sodium Chloride (Merrem 1 Gm/50 ml (Pmx)) 50 ml @ 100 mls/hr Q8 IVPB Last administered on 03/02/17 14:50; Admin Dose 100 MLS/HR; Start 02/27/17 at 14:00 Diagnostic Test (Pha) (Accu-Chek) 1 ea 02 XX Last administered on 03/02/17 02: 35; Admin Dose 1 EA; Start 02/28/17 at 02:00 Epoetin Raj (Epogen (Esrd)) 10,000 units TuThSa@17 SC Last administered on 17:58; Admin Dose 10,000 UNITS; Start 02/27/17 at 17:00 Pantoprazole (Protonix Iv) 40 mg DAILY@02 IV Last administered on 03/02/17 02: 44; Admin Dose 40 MG; Start 02/28/17 at 02:00 Insulin Human NPH (Humulin N) 8 unit BID@08,20 SC ; Start 03/02/17 at 20:00 Morphine Sulfate (morphine) 1 mg Q6H PRN IV PAIN LEVEL 1-5; Start 03/02/17 at 10:00 Enoxaparin Sodium (Lovenox) 90 mg Q12 SC ; Start 03/02/17 at 21:00 SONALI WALKER MD Mar 02, 2017 15:54
[2017-03-02] MEDS: FAT EMULSION 20% 500 ML IV SCH (17:57)
[2017-03-02] MEDS: TPN 1,000 ML IV SCH (18:29)
[2017-03-02] MEDS: ENOXAPARIN 100 MG/ML SYG SC SCH (20:32)
[2017-03-03] VITALS (27 sets, daily range): BP systolic 118–154; BP diastolic 50–86; PULSE 91–116; RESP 12–26
[2017-03-03] MEDS: PANTOPRAZOLE 40 MG INJ IV SCH (02:22)
[2017-03-03] MEDS: ACCU-CHEK XX SCH (02:27)
[2017-03-03] MEDS: MEROPENEM 1 GM/50ML(PMX) 50 ML IVPB SCH ×3 (06:05→21:14)
[2017-03-03 07:37] LABS: ABNORMAL IP MESSAGE 1; BASOPHILS % 0.3 % (0.0-2.0); EOSINOPHILS # 0.6 10^3/ul (0.0-0.5); EOSINOPHILS % 7.4 % (0.0-7.0); HEMATOCRIT 29.8 % (37.0-47.0); HEMOGLOBIN 8.8 g/dl (12.0-16.0); LYMPHOCYTES # 1.4 10^3/ul (0.8-2.9); LYMPHOCYTES % 17.8 % (15.0-51.0); MEAN CORPUSCULAR HEMOGLOBIN 27.5 pg (29.0-33.0); MEAN CORPUSCULAR HGB CONC 29.5 g/dl (32.0-37.0); MEAN CORPUSCULAR VOLUME 93.1 fl (82.0-101.0); MEAN PLATELET VOLUME 9.4 fl (7.4-10.4); MONOCYTE # 0.8 10^3/ul (0.3-0.9); MONOCYTES % 10.1 % (0.0-11.0); NEUTROPHILS % 56.5 % (39.0-77.0); NUCLEATED RED BLOOD CELLS # 0.1 10^3/ul (0.0-0.0); NUCLEATED RED BLOOD CELLS% 0.6 /100WBC (0.0-0.0); PLATELET COUNT 595 10^3/UL (140-415); RED CELL DISTRIBUTION WIDTH 17.2 % (11.5-14.5); WHITE BLOOD COUNT 7.9 10^3/ul (4.8-10.8)
[2017-03-03 07:43] LABS: POSITIVE DIFF @See below
--- NOTE | 2017-03-03 08:03 | CONS ---
Date/Time of Note Date/Time of Note DATE: 03/03/17 TIME: 08:00 Assessment/Plan Assessment/Plan Chief Complaint/Hosp Course 1) UTI, kleb +ESBL in urine change zosyn to merrem await final report on urine cx 02/28 - kleb +ESBL present in urine cx continue with merrem 2) hx of choleycystitis on CT the gall bladder looks ok re-consult dr. hernandes to see if drainage tube can be removed 03/01 - await removal of gall bladder drain 03/03 - Dr. Hernandes to eval for possible removal of GB drainage cath 3) abd wall fluid collection this tracks down to the pelvis and likely emanates from the g-tube will order CT abd with oral contrast via the PEG cx from around the g-tube pt may need surgical intervention for this will consider WBC scan continue with vanco/merrem get nasal swab for MRSA 02/28 - pt to get fluid collection surgically drained when she is medically cleared continue with vanco/merrem 03/01 - drain was placed for abd wall abscess and is draining tube feed looking fluid await d/c of PEG and replacement await culture results, continue with vanco/merrem 03/02 - drainage has MRSA and kleb +ESBL from abd wall continue with vanco/merrem not sure that pig tail cath will be able to drain all of this but a fair amount is coming out told nurse to get strict output on drainage consider swallow eval to see if pt still needs a g-tube 828 - still draining a significant amount of fluid and abd to RLQ is softening up drainage alone may be sufficient continue with vanco/merrem till the drain is out 4) CAD hx of CABG 5) hx of anoxic encephalopathy 02/28 - pt is back to baseline Problems: Consultation Date/Type/Reason Admit Date/Time Feb 26, 2017 at 13:57 Initial Consult Date 02/27/17 Type of Consultation: ID 24 HR Interval Summary Free Text/Dictation no abd pain no V, D, SOB Exam/Review of Systems Vital Signs Vitals Vital Signs Date Time Temp Pulse Resp B/P Pulse Ox O2 Delivery O2 Flow Rate FiO2 03/03/17 04:15 98.9 83 18 133/63 92 03/02/17 19:52 21 03/02/17 04:00 Room Air 03/01/17 08:37 3.0 Intake and Output 03/02/17 03/02/17 03/03/17 15:00 23:00 07:00 Intake Total 100 ml 972 ml Output Total 150 ml 600 ml 500 ml Balance -150 ml -500 ml 472 ml Exam Constitutional: alert, oriented Eyes: nl sclera ENMT: mucosa pink and moist Respiratory: clear to auscultation Cardiovascular: regular rate and rhythm Gastrointestinal: non-tender, soft Results Result Diagram: 03/03/17 0700 03/02/17 0700 Results 24 hrs Laboratory Tests Test 03/02/17 12:04 03/02/17 17:25 03/02/17 18:00 03/02/17 20:28 Bedside Glucose 135 193 166 Urine Random Sodium 53 Test 03/03/17 02:26 03/03/17 07:00 Bedside Glucose 127 White Blood Count 7.9 Red Blood Count 3.20 L Hemoglobin 8.8 L Hematocrit 29.8 L Mean Corpuscular Volume 93.1 Mean Corpuscular Hemoglobin 27.5 L Mean Corpuscular Hemoglobin Concent 29.5 L Red Cell Distribution Width 17.2 H Platelet Count 595 H Mean Platelet Volume 9.4 Neutrophils % 56.5 Lymphocytes % 17.8 Monocytes % 10.1 Eosinophils % 7.4 H Basophils % 0.3 Nucleated Red Blood Cells % 0.6 H Neutrophils # (Manual) 4.5 Lymphocytes # 1.4 Monocytes # 0.8 Eosinophils # 0.6 H Basophils # 0.0 Nucleated Red Blood Cells # 0.1 H Medications Medications Current Medications Ondansetron HCl (Zofran Inj) 4 mg Q6H PRN IV NAUSEA AND/OR VOMITING; Start at 16:00 Miscellaneous Information 1 ea NOTE XX ; Start 02/26/17 at 21:00 Glucose (Glutose) 15 gm Q15M PRN PO DECREASED GLUCOSE; Start 02/26/17 at 21:00 Glucose (Glutose) 22.5 gm Q15M PRN PO DECREASED GLUCOSE; Start 02/26/17 at 21: 00 Dextrose (D50w Syringe) 25 ml Q15M PRN IV DECREASED GLUCOSE; Start 02/26/17 at 21:00 Dextrose (D50w Syringe) 50 ml Q15M PRN IV DECREASED GLUCOSE; Start 02/26/17 at 21:00 Glucagon (Glucagen) 1 mg Q15M PRN IM DECREASED GLUCOSE; Start 02/26/17 at 21:00 Glucose (Glutose) 15 gm Q15M PRN BUCCAL DECREASED GLUCOSE; Start 02/26/17 at 21 :00 Miscellaneous Information This patient le... PRN PRN XX WOUND CARE; Start 02/27 at 03:30 Meropenem/Sodium Chloride (Merrem 1 Gm/50 ml (Pmx)) 50 ml @ 100 mls/hr Q8 IVPB Last administered on 03/03/17 06:05; Admin Dose 100 MLS/HR; Start 02/27/17 at 14:00 Diagnostic Test (Pha) (Accu-Chek) 1 ea 02 XX Last administered on 03/03/17 02: 27; Admin Dose 1 EA; Start 02/28/17 at 02:00 Epoetin Raj (Epogen (Esrd)) 10,000 units TuThSa@17 SC Last administered on 17:58; Admin Dose 10,000 UNITS; Start 02/27/17 at 17:00 Pantoprazole (Protonix Iv) 40 mg DAILY@02 IV Last administered on 03/03/17 02: 22; Admin Dose 40 MG; Start 02/28/17 at 02:00 Insulin Human NPH (Humulin N) 8 unit BID@08,20 SC Last administered on 20:32; Admin Dose 8 UNIT; Start 03/02/17 at 20:00 Morphine Sulfate (morphine) 1 mg Q6H PRN IV PAIN LEVEL 1-5; Start 03/02/17 at 10:00 Enoxaparin Sodium 90 mg 90 mg Q12 SC Last administered on 03/02/17 20:32; Admin Dose 90 MG; Start 03/02/17 at 21:00 Total Parenteral Nutrition 1,000 ml @ 60 mls/hr [id number] IV Last administered on 03/02/17 18:29; Admin Dose 60 MLS/HR; Start 03/02/17 at 17:00 Fat Emulsion Intravenous (Liposyn Ii 20%) 500 ml @ 21 mls/hr [id number] IV Last administered on 03/02/17 17:57; Admin Dose 21 MLS/HR; Start 03/02/17 at 17:00 TR GOODEN MD Mar 03, 2017 08:03
[2017-03-03] MEDS: ALBUTEROL/IPRATROPIUM (NEB) 3 ML AMP HHN SCH ×3 (08:20→20:00)
[2017-03-03] MEDS: ENOXAPARIN 100 MG/ML SYG SC SCH ×2 (08:54→21:07)
[2017-03-03] MEDS: INSULIN ASPART [NOVOLOG] 3 ML PEN SC SCH ×3 (08:55→21:02)
[2017-03-03] MEDS: NPH, HUMAN INSULIN ISOPHANE 3ML VIAL SC SCH ×2 (08:56→20:58)
[2017-03-03] MEDS: TPN 1,000 ML IV SCH ×2 (09:40→19:41)
[2017-03-03 11:08] LABS: CALCIUM 8.6 mg/dl (8.4-10.2); CREATININE 0.72 mg/dl (0.44-1.00); PHOSPHORUS 3.5 mg/dl (2.5-4.9)
[2017-03-03 11:18] LABS: POTASSIUM 3.4 mmol/L (3.5-5.1)
--- NOTE | 2017-03-03 11:28 | CONS ---
Date/Time of Note Date/Time of Note DATE: 03/03/17 TIME: 11:25 Assessment/Plan Assessment/Plan Additional Assessment/Plan Assessment and recommendations; 1. Patient admitted with sepsis due to abdominal wall abscess, improving now. 2. Chronic renal failure, on hemodialysis. 3. Severe generalized deconditioning. Next Continue current supportive care. Consultation Date/Type/Reason Admit Date/Time Feb 26, 2017 at 13:57 Type of Consultation: Pulmonary 24 HR Interval Summary Free Text/Dictation Patient condition stable. Remains awake and alert. Denies any shortness of breath, abdominal pain, nausea or vomiting. General exam; elderly woman, awake and alert. Currently in no distress. Exam/Review of Systems Vital Signs Vitals Vital Signs Date Time Temp Pulse Resp B/P Pulse Ox O2 Delivery O2 Flow Rate FiO2 03/03/17 08:37 94 03/03/17 08:20 18 93 21 03/03/17 08:02 98.0 136/65 03/02/17 04:00 Room Air 03/01/17 08:37 3.0 Intake and Output 03/02/17 03/02/17 03/03/17 15:00 23:00 07:00 Intake Total 100 ml 972 ml Output Total 150 ml 600 ml 500 ml Balance -150 ml -500 ml 472 ml Exam HEENT exam; supple neck, no JVD. No lymphadenopathy. Midline trachea. No thyromegaly. Fair dentition. Pupils are equal and reactive to light. Pharynx is clear. Chest exam; clear to auscultation. S1-S2 audible, no murmurs. Regular rhythm. Abdomen exam; soft, nontender. G-tube in place. Left upper quadrant drain in place. Bowel sounds audible. Extremity exam; 1+ generalized edema. METAL LATHER exam; patient is awake and alert follows simple commands and moves all 4 extremities but still exhibiting significant generalized muscular weakness. Results Result Diagram: 03/03/17 0700 03/03/17 0700 Results 24 hrs Laboratory Tests Test 03/02/17 12:04 03/02/17 17:25 03/02/17 18:00 03/02/17 20:28 Bedside Glucose 135 193 166 Urine Random Sodium 53 Test 03/03/17 02:26 03/03/17 07:00 03/03/17 08:52 Bedside Glucose 127 178 White Blood Count 7.9 Red Blood Count 3.20 L Hemoglobin 8.8 L Hematocrit 29.8 L Mean Corpuscular Volume 93.1 Mean Corpuscular Hemoglobin 27.5 L Mean Corpuscular Hemoglobin Concent 29.5 L Red Cell Distribution Width 17.2 H Platelet Count 595 H Mean Platelet Volume 9.4 Neutrophils % 56.5 Lymphocytes % 17.8 Monocytes % 10.1 Eosinophils % 7.4 H Basophils % 0.3 Nucleated Red Blood Cells % 0.6 H Neutrophils # (Manual) 4.5 Lymphocytes # 1.4 Monocytes # 0.8 Eosinophils # 0.6 H Basophils # 0.0 Nucleated Red Blood Cells # 0.1 H Sodium Level 146 H Potassium Level 3.4 L Chloride Level 104 Carbon Dioxide Level 34 H Anion Gap 11 # Blood Urea Nitrogen 41 #H Creatinine 0.72 Glucose Level 140 # Calcium Level 8.6 Phosphorus Level 3.5 Magnesium Level 2.0 Medications Medications Current Medications Ondansetron HCl (Zofran Inj) 4 mg Q6H PRN IV NAUSEA AND/OR VOMITING; Start at 16:00 Miscellaneous Information 1 ea NOTE XX ; Start 02/26/17 at 21:00 Glucose (Glutose) 15 gm Q15M PRN PO DECREASED GLUCOSE; Start 02/26/17 at 21:00 Glucose (Glutose) 22.5 gm Q15M PRN PO DECREASED GLUCOSE; Start 02/26/17 at 21: 00 Dextrose (D50w Syringe) 25 ml Q15M PRN IV DECREASED GLUCOSE; Start 02/26/17 at 21:00 Dextrose (D50w Syringe) 50 ml Q15M PRN IV DECREASED GLUCOSE; Start 02/26/17 at 21:00 Glucagon (Glucagen) 1 mg Q15M PRN IM DECREASED GLUCOSE; Start 02/26/17 at 21:00 Glucose (Glutose) 15 gm Q15M PRN BUCCAL DECREASED GLUCOSE; Start 02/26/17 at 21 :00 Miscellaneous Information This patient le... PRN PRN XX WOUND CARE; Start 02/27 at 03:30 Meropenem/Sodium Chloride (Merrem 1 Gm/50 ml (Pmx)) 50 ml @ 100 mls/hr Q8 IVPB Last administered on 03/03/17t 06:05; Admin Dose 100 MLS/HR; Start 8/24/17 at 14:00 Diagnostic Test (Pha) (Accu-Chek) 1 ea 02 XX Last administered on 03/03/17 02: 27; Admin Dose 1 EA; Start 02/28/17 at 02:00 Epoetin Raj (Epogen (Esrd)) 10,000 units TuThSa@17 SC Last administered on 17:58; Admin Dose 10,000 UNITS; Start 02/27/17 at 17:00 Pantoprazole (Protonix Iv) 40 mg DAILY@02 IV Last administered on 03/03/17 02: 22; Admin Dose 40 MG; Start 02/28/17 at 02:00 Insulin Human NPH (Humulin N) 8 unit BID@08,20 SC Last administered on 08:56; Admin Dose 8 UNIT; Start 03/02/17 at 20:00 Morphine Sulfate (morphine) 1 mg Q6H PRN IV PAIN LEVEL 1-5; Start 03/02/17 at 10:00 Enoxaparin Sodium 90 mg 90 mg Q12 SC Last administered on 03/03/17 08:54; Admin Dose 90 MG; Start 03/02/17 at 21:00 Total Parenteral Nutrition 1,000 ml @ 60 mls/hr [id number] IV Last administered on 03/02/17 18:29; Admin Dose 60 MLS/HR; Start 03/02/17 at 17:00 Fat Emulsion Intravenous (Liposyn Ii 20%) 500 ml @ 21 mls/hr [id number] IV Last administered on 03/02/17 17:57; Admin Dose 21 MLS/HR; Start 03/02/17 at 17:00 ADIS CAMACHO Mar 03, 2017 11:28
--- NOTE | 2017-03-03 12:50 | PN ---
Date/Time of Note Date/Time of Note DATE: 03/03/17 TIME: 12:49 Assessment/Plan Lines/Catheters IV Catheter Type (from Nrs): Saline Lock Rivas in Place (from Nrs): Yes Assessment/Plan Assessment/Plan [facility] Progress Note Date of Service: 03/03/2017 Place of service: [facility] Today's Assessment & Plan: Overall stable and appears improved. Left abdominal wall abscess seems to be controlled with the drain. Remaining issues are PEG exchange to GJ tube and replacement of the percutaneous cholecystostomy drain. Discussed with Dr. Back in interventional radiology and ordered both of these procedures to be on the schedule, hopefully for today. No indication for acute surgical intervention. Discussed with patient and her and answered all questions. With above assessment, I've recommended the following for today: 1. Continue current cares 2. IR interventions as above 3. Consider formal evaluation of swallowing while patient is in-house and possible resumption of oral intake if she passes Thank you again for your great care of this very pleasant patient and wonderful family. If there are any questions, please feel free to call me at [phone]. Nature of presenting problem: High severity Please note that, given the extensive number of diagnoses or management options , the extensive amount and/or complexity of data needed to be reviewed, and I risk of complications and/or morbidity or mortality, this qualifies as high complexity type of decision-making. Disclaimer: Inadvertent spelling and grammatical errors are likely due to EHR/ dictation software use and do not reflect on the quality of delivered patient care. Also, please note that the electronic time recorded on this node does not necessarily reflect the actual time of the visit. Updated Clinical Summary: A very pleasant 71-year-old lady with multiple comorbid issues including BMI of 35.6 as well as what has been in the hospital since 09/2016 being found unresponsive and multiple issues including congestive heart failure, acute renal failure due to acute tubular necrosis requiring dialysis, urinary tract infection with bacteremia and multiple other issues, who was found to have possible signs of acute cholecystitis on recent imaging. D/c to [facility] ([place] ) 12/25/16. Readmitted to [facility] for abdominal wall pain on the left side on 01/16/2017. Urinary tract infection treated for E. coli. Thoracentesis with removal of approximately 1 L of fluid from her chest 2016. Percutaneous gallbladder drain exchange 01/18/2017. Feeding tube replaced 01/23/2017 by GI (Dr. Helm). Readmitted to [facility] 2016 with abdominal wall abscess. COMORBIDITIES: 1. BMI of 35.6. 2. Acute renal failure (ATN), on maintenance hemodialysis (Friday, , Friday). 3. Congestive heart failure. 4. Anemia. 5. Hypocalcemia. 6. Hypoalbuminemia and malnutrition. 7. Peripheral vascular disease with gangrene of toes of both feet. 8. Recent history of respiratory failure. 9. History of dysphagia requiring PEG placement and feedings. 10. Diabetes mellitus. 11. Leukocytosis from various sources. 12. Funguria with Erica glabrata and Erica albicans of the urine. 13. Escherichia coli and Enterococcus urinary tract infection 10/29/2016. 14. Escherichia coli bacteremia 12/02/2016 (x2 cultures). 15. Repeat culture of the urine 12/02/2016 with E. coli, enterococcus species and Klebsiella pneumoniae, extended-spectrum beta-lactamase. 16. Repeat bacteremia 12/08/2016 with Escherichia coli. 17. Urine positive for Erica albicans 12/11/2016. 18. Clostridium difficile colitis negative on a few stool samples. 19. Bilateral pleural effusions. 20. 2 mm calcified granuloma in the right lower lobe. 21. CT scan of abdomen and pelvis 12/13/2016 showing large amount of pericholecystic fluid with distention of the gallbladder, which could be of acute cholecystitis. 22. Tumefaction sludge, poorly visualized gallstones or soft tissue masses are suspected within the lumen of the distended gallbladder. 23. Anasarca. 24. Status post splenectomy. 25. A 2.8 cm left parapelvic cyst and an adjacent 1.4 cm simple cyst lateral upper portion of the lower third left kidney noted. 26. Atherosclerotic vascular disease. 27. Osteoarthritis of the thoracic and lumbosacral spine. 28. History of acute ST elevation myocardial infarction, inferior wall, status post code STEMI with stent placement, as well as temporary pacer wire. 29. Hyperlipidemia. 30. Possible aspiration pneumonia. 31. S/p CT-guided percutaneous transhepatic cholecystostomy drain placement 06/22, [facility]. 32. Feeding tube replaced 01/23/2017 by GI (Dr. Helm) at [facility]. Subjective: No major events or complaints; no abd pain and under control with medications; no n/v/d; no sob or cp; + flatus; + BM; + activity Objective: Vitals: See below I's & O's: See below Exam: GENERAL: On exam, the patient was lying in bed and appeared to be comfortable and in no acute distress. ABDOMEN: Soft, nontender and nondistended. Percutaneous drain with purulent fluid. There are no peritoneal signs or guarding. SKIN: Skin appears to be pink and feels warm to touch. NEUROLOGIC: Patient is awake, alert, and follows commands appropriately. Able to speak in slightly higher volume than previously. Labs: See below Exam/Review of Systems Vital Signs Vitals Vital Signs Date Time Temp Pulse Resp B/P Pulse Ox O2 Delivery O2 Flow Rate FiO2 03/03/17 11:51 97.4 101 18 130/67 100 03/03/17 08:20 21 03/02/17 04:00 Room Air 03/01/17 08:37 3.0 Intake and Output 03/02/17 03/02/17 03/03/17 15:00 23:00 07:00 Intake Total 100 ml 972 ml Output Total 150 ml 600 ml 500 ml Balance -150 ml -500 ml 472 ml Results Result Diagram: 03/03/17 0700 03/03/17 0700 SHANA ROSARIO M.D. Mar 03, 2017 12:50
[2017-03-03] MEDS ORDERED: IOHEXOL 300MG/ML 30 ML BTL ONE (13:41)
[2017-03-03] MEDS ORDERED: SOD CHLORIDE 0.9% 250 ML ONE (13:42)
--- NOTE | 2017-03-03 14:05 | CONS ---
Date/Time of Note Date/Time of Note DATE: 03/03/17 TIME: 13:57 Assessment/Plan Assessment/Plan Chief Complaint/Hosp Course IMP: 1. H/O Stemi inferior s/p PTCA stent to rca 09/2016-prserved EF by echo 01/20 EF 55% 2.DVT-acute on lovenox 3.abdominal wall abscess 4.s/p G tube 5.Renal failure-resolved 6. CHF-diastolic acute on chronic 7.UTI Recc: -Tele -Resume antiplatelet agent for stent patency OMAYRA- ryann discuss with primary team /malenaery -Follow BP and volume status closely -Contine lovenox -Contineu abx's and f/u cx data -To have revision of G tube to G-J tube Problems: Consultation Date/Type/Reason Admit Date/Time Feb 26, 2017 at 13:57 Initial Consult Date 02/27/17 Type of Consultation: cardiology Reason for Consultation h/o ID s/p ptca/stent Referring Provider: SHAMA LOPEZ MD Exam/Review of Systems Vital Signs Vitals Vital Signs Date Time Temp Pulse Resp B/P Pulse Ox O2 Delivery O2 Flow Rate FiO2 03/03/17 13:03 100 03/03/17 11:51 97.4 18 130/67 100 03/03/17 08:20 21 03/02/17 04:00 Room Air 03/01/17 08:37 3.0 Intake and Output 03/02/17 03/02/17 03/03/17 15:00 23:00 07:00 Intake Total 100 ml 972 ml Output Total 150 ml 600 ml 500 ml Balance -150 ml -500 ml 472 ml Exam Review of Systems: CONSTITUTIONAL: No fevers, chills. PULMONARY: No sob CARDIOVASCULAR: No chest pain/palpitations GASTROINTESTINAL: mild abd pain, drain in place GENITOURINARY: No hematuria/dysuria. MUSCULOSKELETAL: No myagias/arthalgias. PSYCHIATRIC: The patient denies depression. NEUROLOGIC: No weakness Constitutional: alert Psych: no complaints Head: normocephalic ENMT: mucosa pink and moist Neck: jvd (9 cm water), supple Respiratory: diminished breath sounds (at bases/B) Cardiovascular: regular rate and rhythm Gastrointestinal: other (drain in place and G tube), soft Musculoskeletal: muscle weakness (generalized) Extremities: edema (trace/B) Neurological: lethargic Results Result Diagram: 03/03/17 0700 03/03/17 0700 Results 24 hrs Laboratory Tests Test 03/02/17 17:25 03/02/17 18:00 03/02/17 20:28 03/03/17 02:26 Bedside Glucose 193 166 127 Urine Random Sodium 53 Test 03/03/17 07:00 03/03/17 08:52 03/03/17 12:03 White Blood Count 7.9 Red Blood Count 3.20 L Hemoglobin 8.8 L Hematocrit 29.8 L Mean Corpuscular Volume 93.1 Mean Corpuscular Hemoglobin 27.5 L Mean Corpuscular Hemoglobin Concent 29.5 L Red Cell Distribution Width 17.2 H Platelet Count 595 H Mean Platelet Volume 9.4 Neutrophils % 56.5 Lymphocytes % 17.8 Monocytes % 10.1 Eosinophils % 7.4 H Basophils % 0.3 Nucleated Red Blood Cells % 0.6 H Neutrophils # (Manual) 4.5 Lymphocytes # 1.4 Monocytes # 0.8 Eosinophils # 0.6 H Basophils # 0.0 Nucleated Red Blood Cells # 0.1 H Sodium Level 146 H Potassium Level 3.4 L Chloride Level 104 Carbon Dioxide Level 34 H Anion Gap 11 # Blood Urea Nitrogen 41 #H Creatinine 0.72 Glucose Level 140 # Calcium Level 8.6 Phosphorus Level 3.5 Magnesium Level 2.0 Bedside Glucose 178 223 H Medications Medications Current Medications Ondansetron HCl (Zofran Inj) 4 mg Q6H PRN IV NAUSEA AND/OR VOMITING; Start at 16:00 Miscellaneous Information 1 ea NOTE XX ; Start 02/26/17 at 21:00 Glucose (Glutose) 15 gm Q15M PRN PO DECREASED GLUCOSE; Start 02/26/17 at 21:00 Glucose (Glutose) 22.5 gm Q15M PRN PO DECREASED GLUCOSE; Start 02/26/17 at 21: 00 Dextrose (D50w Syringe) 25 ml Q15M PRN IV DECREASED GLUCOSE; Start 02/26/17 at 21:00 Dextrose (D50w Syringe) 50 ml Q15M PRN IV DECREASED GLUCOSE; Start 02/26/17 at 21:00 Glucagon (Glucagen) 1 mg Q15M PRN IM DECREASED GLUCOSE; Start 02/26/17 at 21:00 Glucose (Glutose) 15 gm Q15M PRN BUCCAL DECREASED GLUCOSE; Start 02/26/17 at 21 :00 Miscellaneous Information This patient le... PRN PRN XX WOUND CARE; Start 02/27 at 03:30 Meropenem/Sodium Chloride (Merrem 1 Gm/50 ml (Pmx)) 50 ml @ 100 mls/hr Q8 IVPB Last administered on 03/03/17 06:05; Admin Dose 100 MLS/HR; Start 02/27/17 at 14:00 Diagnostic Test (Pha) (Accu-Chek) 1 ea 02 XX Last administered on 03/03/17 02: 27; Admin Dose 1 EA; Start 02/28/17 at 02:00 Epoetin Raj (Epogen (Esrd)) 10,000 units TuThSa@17 SC Last administered on 17:58; Admin Dose 10,000 UNITS; Start 02/27/17 at 17:00 Insulin Human NPH (Humulin N) 8 unit BID@08,20 SC Last administered on 08:56; Admin Dose 8 UNIT; Start 03/02/17 at 20:00 Morphine Sulfate (morphine) 1 mg Q6H PRN IV PAIN LEVEL 1-5; Start 03/02/17 at 10:00 Enoxaparin Sodium 90 mg 90 mg Q12 SC Last administered on 03/03/17 08:54; Admin Dose 90 MG; Start 03/02/17 at 21:00 Total Parenteral Nutrition 1,000 ml @ 60 mls/hr [id number] IV Last administered on 03/02/17 18:29; Admin Dose 60 MLS/HR; Start 03/02/17 at 17:00 Fat Emulsion Intravenous (Liposyn Ii 20%) 500 ml @ 21 mls/hr [id number] IV Last administered on 03/02/17 17:57; Admin Dose 21 MLS/HR; Start 03/02/17 at 17:00 Miscellaneous Information (*Rx Drug Level Order Reminder*) 1 ONCE ONCE XX ; Start 03/04/17 at 05:00; Stop 03/04/17 at 05:01 Famotidine (Pepcid Iv) 20 mg BID IV ; Start 03/03/17 at 21:00 GILBERTO MONTALVO Mar 03, 2017 14:04
[2017-03-03] MEDS ORDERED: PROPOFOL 20 ML ONE (14:16)
[2017-03-03] MEDS ORDERED: FENTAnyl 50 MCG/ML VIAL ONE ×2 (14:16→16:11)
[2017-03-03] MEDS ORDERED: MIDAZOLAM 1 MG/ML 2 ML INJ ONE (14:17)
[2017-03-03] MEDS ORDERED: GLYCOPYRROLATE 0.4 MG INJ ONE (14:17)
[2017-03-03] MEDS ORDERED: ONDANSETRON 4 MG INJ ONE (14:23)
[2017-03-03] MEDS ORDERED: LIDOCAINE 1% (MDV) 20 ML INJ ONE (15:15)
[2017-03-03] MEDS ORDERED: IOHEXOL 300MG/ML 150 ML BTL ONE (15:34)
[2017-03-03] MEDS ORDERED: NALOXONE (0.4 MG/ML) INJ ONE (16:16)
--- NOTE | 2017-03-03 16:32 | CONS ---
Date/Time of Note Date/Time of Note DATE: 03/03/17 TIME: 16:21 Assessment/Plan Assessment/Plan Chief Complaint/Hosp Course 1. Acute Renal Failure , she has prerenal azotemia , which is improving . She has some peripheral edema , but low serum albumin . She is now on TPN 2. Abdominal abscess , LUQ . She has a drainage tube in place . 3. ASHD , h/o cardiac arrest and acute RI in September 2016 . 4. DM , blood sugars are high , will adjust insulin dose 5. h/o CKD , was on dialysis . Now she is not requiring dialysis . 6. anemia 7. UTI with sepsis 8. h/o acute cholecystitis with cholecystotomy tube which seems to have become dislodged 9. malnourished Problems: Consultation Date/Type/Reason Admit Date/Time Feb 26, 2017 at 13:57 Initial Consult Date 02/27/17 Type of Consultation: cardiology Referring Provider: SHAMA LOPEZ MD 24 HR Interval Summary Free Text/Dictation She is awake and responsive . She is going down to radiology to have a jejunostomy tube placed . Constitutional: no complaints Exam/Review of Systems Vital Signs Vitals Vital Signs Date Time Temp Pulse Resp B/P Pulse Ox O2 Delivery O2 Flow Rate FiO2 03/03/17 13:03 100 03/03/17 11:51 97.4 18 130/67 100 03/03/17 08:20 21 03/02/17 04:00 Room Air 03/01/17 08:37 3.0 Intake and Output 03/02/17 03/02/17 03/03/17 15:00 23:00 07:00 Intake Total 100 ml 972 ml Output Total 150 ml 600 ml 500 ml Balance -150 ml -500 ml 472 ml Exam Constitutional: alert, frail, obese, oriented Head: normocephalic ENMT: nl external ears & nose, nl lips & teeth, nl nasal mucosa & septum Neck: supple Respiratory: clear to auscultation, diminished breath sounds Cardiovascular: edema, regular rate and rhythm Gastrointestinal: distended, tender Extremities: edema Results Result Diagram: 03/03/17 0700 03/03/17 0700 Results 24 hrs Laboratory Tests Test 03/02/17 17:25 03/02/17 18:00 03/02/17 20:28 03/03/17 02:26 Bedside Glucose 193 166 127 Urine Random Sodium 53 Test 03/03/17 07:00 03/03/17 08:52 03/03/17 12:03 White Blood Count 7.9 Red Blood Count 3.20 L Hemoglobin 8.8 L Hematocrit 29.8 L Mean Corpuscular Volume 93.1 Mean Corpuscular Hemoglobin 27.5 L Mean Corpuscular Hemoglobin Concent 29.5 L Red Cell Distribution Width 17.2 H Platelet Count 595 H Mean Platelet Volume 9.4 Neutrophils % 56.5 Lymphocytes % 17.8 Monocytes % 10.1 Eosinophils % 7.4 H Basophils % 0.3 Nucleated Red Blood Cells % 0.6 H Neutrophils # (Manual) 4.5 Lymphocytes # 1.4 Monocytes # 0.8 Eosinophils # 0.6 H Basophils # 0.0 Nucleated Red Blood Cells # 0.1 H Sodium Level 146 H Potassium Level 3.4 L Chloride Level 104 Carbon Dioxide Level 34 H Anion Gap 11 # Blood Urea Nitrogen 41 #H Creatinine 0.72 Glucose Level 140 # Calcium Level 8.6 Phosphorus Level 3.5 Magnesium Level 2.0 Bedside Glucose 178 223 H Medications Medications Current Medications Ondansetron HCl (Zofran Inj) 4 mg Q6H PRN IV NAUSEA AND/OR VOMITING; Start at 16:00 Miscellaneous Information 1 ea NOTE XX ; Start 02/26/17 at 21:00 Glucose (Glutose) 15 gm Q15M PRN PO DECREASED GLUCOSE; Start 02/26/17 at 21:00 Glucose (Glutose) 22.5 gm Q15M PRN PO DECREASED GLUCOSE; Start 02/26/17 at 21: 00 Dextrose (D50w Syringe) 25 ml Q15M PRN IV DECREASED GLUCOSE; Start 02/26/17 at 21:00 Dextrose (D50w Syringe) 50 ml Q15M PRN IV DECREASED GLUCOSE; Start 02/26/17 at 21:00 Glucagon (Glucagen) 1 mg Q15M PRN IM DECREASED GLUCOSE; Start 02/26/17 at 21:00 Glucose (Glutose) 15 gm Q15M PRN BUCCAL DECREASED GLUCOSE; Start 02/26/17 at 21 :00 Miscellaneous Information This patient le... PRN PRN XX WOUND CARE; Start 02/27 at 03:30 Meropenem/Sodium Chloride (Merrem 1 Gm/50 ml (Pmx)) 50 ml @ 100 mls/hr Q8 IVPB Last administered on 03/03/17 06:05; Admin Dose 100 MLS/HR; Start 02/27/17 at 14:00 Diagnostic Test (Pha) (Accu-Chek) 1 ea 02 XX Last administered on 03/03/17 02: 27; Admin Dose 1 EA; Start 02/28/17 at 02:00 Epoetin Raj (Epogen (Esrd)) 10,000 units TuThSa@17 SC Last administered on 17:58; Admin Dose 10,000 UNITS; Start 02/27/17 at 17:00 Insulin Human NPH (Humulin N) 8 unit BID@08,20 SC Last administered on 08:56; Admin Dose 8 UNIT; Start 03/02/17 at 20:00 Morphine Sulfate (morphine) 1 mg Q6H PRN IV PAIN LEVEL 1-5; Start 03/02/17 at 10:00 Enoxaparin Sodium 90 mg 90 mg Q12 SC Last administered on 03/03/17 08:54; Admin Dose 90 MG; Start 03/02/17 at 21:00 Total Parenteral Nutrition 1,000 ml @ 60 mls/hr [id number] IV Last administered on 03/02/17 18:29; Admin Dose 60 MLS/HR; Start 03/02/17 at 17:00 Fat Emulsion Intravenous (Liposyn Ii 20%) 500 ml @ 21 mls/hr [id number] IV Last administered on 03/02/17 17:57; Admin Dose 21 MLS/HR; Start 03/02/17 at 17:00 Miscellaneous Information (*Rx Drug Level Order Reminder*) 1 ONCE ONCE XX ; Start 03/04/17 at 05:00; Stop 03/04/17 at 05:01 Famotidine (Pepcid Iv) 20 mg BID IV ; Start 03/03/17 at 21:00 DAMIR MARTINEZ MD Mar 03, 2017 16:32
[2017-03-03] MEDS: FAT EMULSION 20% 500 ML IV SCH ×2 (16:49→19:39)
[2017-03-03] MEDS ORDERED: SOD CHLORIDE 0.9% 500 ML ONE ×2 (17:00→17:01)
--- NOTE | 2017-03-03 17:48 | RADRPT ---
PROCEDURE: Fluoroscopic guided replacement of cholecystostomy tube. CLINICAL INDICATION: The existing cholecystostomy tube is not functioning. TECHNIQUE: The existing cholecystostomy tube was cut. Using local anesthetic and sterile techniqu e, a guidewire was advanced through the existing cholecystostomy to and the existing cholecystostomy tube was removed over the guidewire. A new 8.5 Arabic cholecystostomy tube was then advanced over the guide wire and the tip was confirmed in position within the gallbladder with fluoroscopic guidan ce. Contrast was injected confirming position. The tube was secured to the patient's skin with sma ll cell. Fluoroscopy time is 0.6 minutes. 11 images of the right upper quadrant of the abdomen were obtained. COMPARISON: CT scan of the abdomen and pelvis dated 02/28/2017. FINDINGS: Final images demonstrate the cholecystostomy tube in satisfactory position within the gallbladder. IMPRESSION: 1. Fluoroscopic guided placement of cholecystostomy tube. RPTAT: QQ .Arnaldo Back MD, MD Date Time Electronically viewed and signed by .Arnaldo Back MD, on 03/03/2017 17:47 .R/
[2017-03-03] MEDS ORDERED: ONDANSETRON 4 MG INJ IV PRN (18:00)
[2017-03-03] MEDS ORDERED: INSULIN ASPART [NOVOLOG] 3 ML PEN SC ONE (18:00)
[2017-03-03] MEDS ORDERED: FENTAnyl 50 MCG/ML VIAL IV PRN ×3 (18:00)
[2017-03-03] MEDS ORDERED: LABETALOL HCL 20MG INJ IV PRN ×2 (18:00→18:30)
[2017-03-03] MEDS ORDERED: METOCLOPRAMIDE 10 MG INJ IV PRN (18:00)
[2017-03-03] MEDS ORDERED: POTASSIUM CHLORIDE 30 MEQ in DEXTROSE 5% 250 ML IVPB SCH (18:00)
--- NOTE | 2017-03-03 18:00 | RADRPT ---
PROCEDURE: Percutaneous Gastrojejunostomy Tube Replacement. PROCEDURES PERFORMED: 1. Fluoroscopic visualization of small bowel and stomach of LUQ via administration of gastric and je junal contrast during the procedure. 2. Fluoroscopically guided placement of percutaneous gastrojejunostomy tube with tip beyond the liga ment of Treitz. CLINICAL INDICATION: The existing gastrostomy tube is not functioning. TECHNIQUE: Informed consent was obtained. Risks including bleeding and infection were explained to the patient. The patient understood and was willing to proceed. A procedural pause was performed. The patient's name, date of , and procedure to be performed were verified. The left upper quadrant was prepped and draped in sterile fashion. The stomach was visualized fluoro scopically and a 0.035 inch guidewire was threaded through the existing gastrostomy tube. The existi ng gastrostomy tube was removed and the wire was maneuvered through the pylorus and into the jejunum using a Kumpe catheter. A 22 Vietnamese gastrojejunostomy tube was threaded over the wire with the tip in the jejunum past the ligament of Treitz. The wire was removed and the position of the feeding tub e tip was confirmed fluoroscopically. 10 ml of iodinated contrast was also instilled through the fee ding tube to further confirm the location of its tip. 10 ml of contrast was also injected into the g astrostomy portion of the tube and confirm position within the stomach. The feeding tube was secured in the stomach with insufflation of the gastric balloon with 10 cc of normal saline mixed with cont rast and tip location was again confirmed. The patient tolerated the procedure well, with no immediate complications, and was discharged from the IR suite in good condition. 24.1 minutes of fluoroscopy time was used. COMPARISON: CT scan of the abdomen and pelvis dated 02/28/2017 nuris FINDINGS: Final images demonstrate the tip of the gastrojejunostomy tube past the ligament of Treitz. The bal loon is in the stomach along with the gastric ports in the stomach. IMPRESSION: Successful placement of gastrojejunostomy feeding tube. RPTAT: QQ .Arnaldo Back MD, MD Date Time Electronically viewed and signed by .Arnaldo Back MD, on 03/03/2017 17:57 .Marjan
[2017-03-03] MEDS: FAMOTIDINE 20 MG INJ IV SCH (21:04)
[2017-03-04] VITALS (11 sets, daily range): BP systolic 112–138; BP diastolic 50–58; PULSE 87–102; RESP 16–20
[2017-03-04] MEDS: TPN 1,000 ML IV SCH ×2 (01:50→15:22)
[2017-03-04] MEDS: ACCU-CHEK XX SCH (01:53)
[2017-03-04] MEDS: MEROPENEM 1 GM/50ML(PMX) 50 ML IVPB SCH ×3 (06:48→22:31)
[2017-03-04 07:44] LABS: ABNORMAL IP MESSAGE 1; BASOPHIL # 0.1 10^3/ul (0.0-0.1); BASOPHILS % 0.5 % (0.0-2.0); EOSINOPHILS # 0.8 10^3/ul (0.0-0.5); EOSINOPHILS % 7.1 % (0.0-7.0); HEMATOCRIT 33.9 % (37.0-47.0); HEMOGLOBIN 9.6 g/dl (12.0-16.0); LYMPHOCYTES # 1.9 10^3/ul (0.8-2.9); LYMPHOCYTES % 17.7 % (15.0-51.0); MEAN CORPUSCULAR HEMOGLOBIN 27.4 pg (29.0-33.0); MEAN CORPUSCULAR HGB CONC 28.3 g/dl (32.0-37.0); MEAN CORPUSCULAR VOLUME 96.6 fl (82.0-101.0); MEAN PLATELET VOLUME 10.3 fl (7.4-10.4); MONOCYTES % 9.3 % (0.0-11.0); NUCLEATED RED BLOOD CELLS # 0.1 10^3/ul (0.0-0.0); NUCLEATED RED BLOOD CELLS% 0.5 /100WBC (0.0-0.0); PLATELET COUNT 538 10^3/UL (140-415); RED BLOOD COUNT 3.51 10^6/ul (4.20-5.40); RED CELL DISTRIBUTION WIDTH 17.3 % (11.5-14.5); WHITE BLOOD COUNT 10.9 10^3/ul (4.8-10.8)
[2017-03-04 07:54] LABS: POSITIVE DIFF @See below
[2017-03-04] MEDS: ALBUTEROL/IPRATROPIUM (NEB) 3 ML AMP HHN SCH ×3 (08:00→20:00)
[2017-03-04 08:10] LABS: ALBUMIN 2.4 g/dl (3.3-4.9); ALBUMIN/GLOBULIN RATIO 0.63; CALCIUM 8.8 mg/dl (8.4-10.2); CREATININE 0.75 mg/dl (0.44-1.00); POTASSIUM 4.3 mmol/L (3.5-5.1); TOTAL PROTEIN 6.2 g/dl (6.1-8.1)
[2017-03-04 08:12] LABS: PHOSPHORUS 4.4 mg/dl (2.5-4.9)
--- NOTE | 2017-03-04 08:37 | CONS ---
Date/Time of Note Date/Time of Note DATE: 03/04/17 TIME: 08:34 Assessment/Plan Assessment/Plan Chief Complaint/Hosp Course 1. Acute Renal Failure , she has prerenal azotemia , which is improving . She has some peripheral edema , but low serum albumin . She is now on TPN . She is overall feeling better. 2. Abdominal abscess , LUQ . She has a drainage tube in place . 3. ASHD , h/o cardiac arrest and acute [place] in September 2016 . 4. DM , blood sugars are high , will adjust insulin dose 5. h/o CKD , was on dialysis . Now she is not requiring dialysis . We will call vascular surgeon to remove permacath. 6. anemia 7. UTI with sepsis 8. h/o acute cholecystitis with cholecystotomy tube which seems to have become dislodged 9. malnourished Problems: Consultation Date/Type/Reason Admit Date/Time Feb 26, 2017 at 13:57 Initial Consult Date 02/27/17 Type of Consultation: cardiology Referring Provider: SHAMA LOPEZ MD 24 HR Interval Summary Free Text/Dictation She is awake and responsive. She has no complaints. Constitutional: no complaints Exam/Review of Systems Vital Signs Vitals Vital Signs Date Time Temp Pulse Resp B/P Pulse Ox O2 Delivery O2 Flow Rate FiO2 03/04/17 07:51 97.8 97 16 126/58 100 03/03/17 18:35 Nasal Cannula 03/03/17 08:20 21 03/01/17 08:37 3.0 Intake and Output 03/03/17 03/03/17 03/04/17 15:00 23:00 07:00 Intake Total 952 ml 972 ml Output Total 875 ml 750 ml Balance 77 ml 222 ml Exam She has gangrenous toes on both feet. Constitutional: alert, frail, obese, oriented Respiratory: clear to auscultation, diminished breath sounds Cardiovascular: edema, regular rate and rhythm Gastrointestinal: non-tender, soft Results Result Diagram: 03/04/17 0702 03/04/17 0702 Results 24 hrs Laboratory Tests Test 03/03/17 08:52 03/03/17 12:03 03/03/17 18:14 03/03/17 20:54 Bedside Glucose 178 223 H 213 244 H Test 03/04/17 01:52 03/04/17 07:02 Bedside Glucose 256 H White Blood Count 10.9 #H Red Blood Count 3.51 L Hemoglobin 9.6 L Hematocrit 33.9 L Mean Corpuscular Volume 96.6 Mean Corpuscular Hemoglobin 27.4 L Mean Corpuscular Hemoglobin Concent 28.3 L Red Cell Distribution Width 17.3 H Platelet Count 538 H Mean Platelet Volume 10.3 Neutrophils % 56.0 Lymphocytes % 17.7 Monocytes % 9.3 Eosinophils % 7.1 H Basophils % 0.5 Nucleated Red Blood Cells % 0.5 H Neutrophils # (Manual) 6.1 Lymphocytes # 1.9 Monocytes # 1.0 H Eosinophils # 0.8 H Basophils # 0.1 Nucleated Red Blood Cells # 0.1 H Sodium Level 144 Potassium Level 4.3 Chloride Level 106 Carbon Dioxide Level 27 Anion Gap 15 Blood Urea Nitrogen 41 H Creatinine 0.75 Glucose Level 282 #H Calcium Level 8.8 Phosphorus Level 4.4 Magnesium Level 2.0 Total Bilirubin 0.0 L Direct Bilirubin 0.00 Indirect Bilirubin 0.0 Aspartate Amino Transf (AST/SGOT) 26 Alanine Aminotransferase (ALT/SGPT) 22 Alkaline Phosphatase 159 H Total Protein 6.2 Albumin 2.4 L Globulin 3.80 H Albumin/Globulin Ratio 0.63 Random Vancomycin Level 9.2 Medications Medications Current Medications Ondansetron HCl (Zofran Inj) 4 mg Q6H PRN IV NAUSEA AND/OR VOMITING; Start at 16:00 Miscellaneous Information 1 ea NOTE XX ; Start 02/26/17 at 21:00 Glucose (Glutose) 15 gm Q15M PRN PO DECREASED GLUCOSE; Start 02/26/17 at 21:00 Glucose (Glutose) 22.5 gm Q15M PRN PO DECREASED GLUCOSE; Start 02/26/17 at 21: 00 Dextrose (D50w Syringe) 25 ml Q15M PRN IV DECREASED GLUCOSE; Start 02/26/17 at 21:00 Dextrose (D50w Syringe) 50 ml Q15M PRN IV DECREASED GLUCOSE; Start 02/26/17 at 21:00 Glucagon (Glucagen) 1 mg Q15M PRN IM DECREASED GLUCOSE; Start 02/26/17 at 21:00 Glucose (Glutose) 15 gm Q15M PRN BUCCAL DECREASED GLUCOSE; Start 02/26/17 at 21 :00 Miscellaneous Information This patient le... PRN PRN XX WOUND CARE; Start 02/27 at 03:30 Meropenem/Sodium Chloride (Merrem 1 Gm/50 ml (Pmx)) 50 ml @ 100 mls/hr Q8 IVPB Last administered on 03/04/17 06:48; Admin Dose 100 MLS/HR; Start 02/27/17 at 14:00 Diagnostic Test (Pha) (Accu-Chek) 1 ea 02 XX Last administered on 03/03/17 02: 27; Admin Dose 1 EA; Start 02/28/17 at 02:00 Epoetin Raj (Epogen (Esrd)) 10,000 units TuThSa@17 SC Last administered on 17:58; Admin Dose 10,000 UNITS; Start 02/27/17 at 17:00 Insulin Human NPH (Humulin N) 8 unit BID@08,20 SC Last administered on 20:58; Admin Dose 8 UNIT; Start 03/02/17 at 20:00 Morphine Sulfate (morphine) 1 mg Q6H PRN IV PAIN LEVEL 1-5; Start 03/02/17 at 10:00 Enoxaparin Sodium 90 mg 90 mg Q12 SC Last administered on 03/03/17 21:07; Admin Dose 90 MG; Start 03/02/17 at 21:00 Total Parenteral Nutrition 1,000 ml @ 60 mls/hr [id number] IV Last administered on 03/03/17 19:41; Admin Dose 60 MLS/HR; Start 03/02/17 at 17:00 Fat Emulsion Intravenous (Liposyn Ii 20%) 500 ml @ 21 mls/hr [id number] IV Last administered on 03/03/17 19:39; Admin Dose 21 MLS/HR; Start 03/02/17 at 17:00 Famotidine (Pepcid Iv) 20 mg BID IV Last administered on 03/03/17 21:04; Admin Dose 20 MG; Start 03/03/17 at 21:00 DAMIR MARTINEZ MD Mar 04, 2017 08:37
[2017-03-04] MEDS: ENOXAPARIN 100 MG/ML SYG SC SCH ×2 (09:17→21:22)
[2017-03-04] MEDS: INSULIN ASPART [NOVOLOG] 3 ML PEN SC SCH ×4 (09:23→21:00)
[2017-03-04] MEDS: NPH, HUMAN INSULIN ISOPHANE 3ML VIAL SC SCH ×2 (09:23→22:35)
[2017-03-04] MEDS: FAMOTIDINE 20 MG INJ IV SCH ×2 (09:25→21:21)
--- NOTE | 2017-03-04 09:47 | CONS ---
Date/Time of Note Date/Time of Note DATE: 03/04/17 TIME: 09:44 Assessment/Plan Assessment/Plan Additional Assessment/Plan 1. H/O Stemi inferior s/p PTCA stent to rca 09/2016-preserved EF by echo 01/20 EF 55% - NO CP now. 2.DVT-acute on lovenox - con't Med Rx 3.abdominal wall abscess =- on anti-Bx 4.s/p G tube - GI team follows 5.Renal failure-BETTER 6. CHF-diastolic acute on chronic - still with overload, con't gentle diuresis 7.UTI - on anti-Bx Consultation Date/Type/Reason Admit Date/Time Feb 26, 2017 at 13:57 Initial Consult Date 02/27/17 Type of Consultation: cardiology Referring Provider: SHAMA LOEPZ MD 24 HR Interval Summary Free Text/Dictation NO active change - BP satble - no CP noted no - still with fluid overload -con' t gentle diuresis. ROS: No fever, no chills, no nausea, no vomiting, no diarrhea/constipation No recent weight changes No chest pain, no PND, no orthopnea + SOB No dizziness, blurred vision No thirst, no heat or cold intolerance Exam/Review of Systems Vital Signs Vitals Vital Signs Date Time Temp Pulse Resp B/P Pulse Ox O2 Delivery O2 Flow Rate FiO2 03/04/17 08:17 99 03/04/17 07:51 97.8 16 126/58 100 03/03/17 18:35 Nasal Cannula 03/03/17 08:20 21 03/01/17 08:37 3.0 Intake and Output 03/03/17 03/03/17 03/04/17 15:00 23:00 07:00 Intake Total 952 ml 972 ml Output Total 875 ml 750 ml Balance 77 ml 222 ml Exam General: WN/WD/NAD, AOx 1 - weak HEENT: Unicetric/atraumatic/EOMI (follows some commands) NECK: JVD elevated, no thyromegaly Lymph: no lymphadenopathy HEART: regular with no S3, II/ systolic murmur at apex LUNGS: Coarse sounds ABD: soft, NT, ND, +BS : Intact Neuro: non focal SKIN: chronic changes., bruising EXT: 2+ edema Results Result Diagram: 03/04/1770103/04/17 0702 Results 24 hrs Laboratory Tests Test 03/03/17 12:03 03/03/17 18:14 03/03/17 20:54 03/04/17 01:52 Bedside Glucose 223 H 213 244 H 256 H Test 03/04/17 07:02 White Blood Count 10.9 #H Red Blood Count 3.51 L Hemoglobin 9.6 L Hematocrit 33.9 L Mean Corpuscular Volume 96.6 Mean Corpuscular Hemoglobin 27.4 L Mean Corpuscular Hemoglobin Concent 28.3 L Red Cell Distribution Width 17.3 H Platelet Count 538 H Mean Platelet Volume 10.3 Neutrophils % 56.0 Lymphocytes % 17.7 Monocytes % 9.3 Eosinophils % 7.1 H Basophils % 0.5 Nucleated Red Blood Cells % 0.5 H Neutrophils # (Manual) 6.1 Lymphocytes # 1.9 Monocytes # 1.0 H Eosinophils # 0.8 H Basophils # 0.1 Nucleated Red Blood Cells # 0.1 H Sodium Level 144 Potassium Level 4.3 Chloride Level 106 Carbon Dioxide Level 27 Anion Gap 15 Blood Urea Nitrogen 41 H Creatinine 0.75 Glucose Level 282 #H Calcium Level 8.8 Phosphorus Level 4.4 Magnesium Level 2.0 Total Bilirubin 0.0 L Direct Bilirubin 0.00 Indirect Bilirubin 0.0 Aspartate Amino Transf (AST/SGOT) 26 Alanine Aminotransferase (ALT/SGPT) 22 Alkaline Phosphatase 159 H Total Protein 6.2 Albumin 2.4 L Globulin 3.80 H Albumin/Globulin Ratio 0.63 Random Vancomycin Level 9.2 Medications Medications Current Medications Ondansetron HCl (Zofran Inj) 4 mg Q6H PRN IV NAUSEA AND/OR VOMITING; Start at 16:00 Miscellaneous Information 1 ea NOTE XX ; Start 02/26/17 at 21:00 Glucose (Glutose) 15 gm Q15M PRN PO DECREASED GLUCOSE; Start 02/26/17 at 21:00 Glucose (Glutose) 22.5 gm Q15M PRN PO DECREASED GLUCOSE; Start 02/26/17 at 21: 00 Dextrose (D50w Syringe) 25 ml Q15M PRN IV DECREASED GLUCOSE; Start 02/26/17 at 21:00 Dextrose (D50w Syringe) 50 ml Q15M PRN IV DECREASED GLUCOSE; Start 02/26/17 at 21:00 Glucagon (Glucagen) 1 mg Q15M PRN IM DECREASED GLUCOSE; Start 02/26/17 at 21:00 Glucose (Glutose) 15 gm Q15M PRN BUCCAL DECREASED GLUCOSE; Start 02/26/17 at 21 :00 Miscellaneous Information This patient le... PRN PRN XX WOUND CARE; Start 02/27 at 03:30 Meropenem/Sodium Chloride (Merrem 1 Gm/50 ml (Pmx)) 50 ml @ 100 mls/hr Q8 IVPB Last administered on 03/04/17 06:48; Admin Dose 100 MLS/HR; Start 02/27/17 at 14:00 Diagnostic Test (Pha) (Accu-Chek) 1 ea 02 XX Last administered on 03/03/17 02: 27; Admin Dose 1 EA; Start 02/28/17 at 02:00 Epoetin Raj (Epogen (Esrd)) 10,000 units TuThSa@17 SC Last administered on 17:58; Admin Dose 10,000 UNITS; Start 02/27/17 at 17:00 Insulin Human NPH (Humulin N) 8 unit BID@08,20 SC Last administered on 09:23; Admin Dose 8 UNIT; Start 03/02/17 at 20:00 Morphine Sulfate (morphine) 1 mg Q6H PRN IV PAIN LEVEL 1-5; Start 03/02/17 at 10:00 Enoxaparin Sodium 90 mg 90 mg Q12 SC Last administered on 03/04/17 09:17; Admin Dose 90 MG; Start 03/02/17 at 21:00 Total Parenteral Nutrition 1,000 ml @ 60 mls/hr [id number] IV Last administered on 03/03/17 19:41; Admin Dose 60 MLS/HR; Start 03/02/17 at 17:00 Fat Emulsion Intravenous (Liposyn Ii 20%) 500 ml @ 21 mls/hr [id number] IV Last administered on 03/03/17 19:39; Admin Dose 21 MLS/HR; Start 03/02/17 at 17:00 Famotidine (Pepcid Iv) 20 mg BID IV Last administered on 03/04/17 09:25; Admin Dose 20 MG; Start 03/03/17 at 21:00 FAZAL CARTAGENA MD Mar 04, 2017 09:47
[2017-03-04] MEDS ORDERED: FUROSEMIDE 20 MG INJ IV SCH (10:00)
[2017-03-04] MEDS ORDERED: VANCOMYCIN 1.5 GM in SOD CHLORIDE 0.9% 250 ML IVPB SCH (11:30)
--- NOTE | 2017-03-04 12:19 | PN ---
Date/Time of Note Date/Time of Note DATE: 03/04/17 TIME: 12:10 Assessment/Plan Lines/Catheters IV Catheter Type (from Nrs): Peripheral IV Rivas in Place (from Nrs): Yes Assessment/Plan Assessment/Plan [facility] Progress Note Date of Service: 03/04/2017 Place of service: [facility] Today's Assessment & Plan: Overall stable and improved. S/p exchange of PEG to GJ and repositioning of a new perc cholecystostomy tube 03/03/17. Left abdominal wall abscess seems to be controlled with the drain. Discussed with floor charge nurse regarding care, which is somewhat complex. No indication for acute surgical intervention. Discussed with patient and answered all questions. With above assessment, I've recommended the following for today: 1. Continue current cares 2. Resume feeds under guidance of dieticians through jejunostomy (J) tube portion of gastrojejunostomy (GJ) tube 3. Use gastrostomy (G) portion of GJ to have patient on low intermittent suction 4. Very important: only use the G portion to administer meds into the stomach; do not use the J portion; may have the G portion clamped for 30 min after giving meds 5. Flush percutaneous cholecystostomy drain on the right side 10 cc NS toward patient TID 6. Consider formal evaluation of swallowing while patient is in-house and possible resumption of oral intake if she passes Thank you again for your great care of this very pleasant patient and wonderful family. If there are any questions, please feel free to call me at [phone]. Nature of presenting problem: High severity Please note that, given the extensive number of diagnoses or management options , the extensive amount and/or complexity of data needed to be reviewed, and I risk of complications and/or morbidity or mortality, this qualifies as high complexity type of decision-making. Disclaimer: Inadvertent spelling and grammatical errors are likely due to EHR/ dictation software use and do not reflect on the quality of delivered patient care. Also, please note that the electronic time recorded on this node does not necessarily reflect the actual time of the visit. Updated Clinical Summary: A very pleasant 71-year-old lady with multiple comorbid issues including BMI of 35.6 as well as what has been in the hospital since 09/2016 being found unresponsive and multiple issues including congestive heart failure, acute renal failure due to acute tubular necrosis requiring dialysis, urinary tract infection with bacteremia and multiple other issues, who was found to have possible signs of acute cholecystitis on recent imaging. D/c to [facility] ([place] ) 12/25/16. Readmitted to [facility] for abdominal wall pain on the left side on 01/16/2017. Urinary tract infection treated for E. coli. Thoracentesis with removal of approximately 1 L of fluid from her chest 2016. Percutaneous gallbladder drain exchange 01/18/2017. Feeding tube replaced 01/23/2017 by GI (Dr. Helm). Readmitted to [facility] 2016 with abdominal wall abscess. S/p exchange of PEG to GJ and repositioning of a new perc cholecystostomy tube 03/03/17. COMORBIDITIES: 1. BMI of 35.6. 2. Acute renal failure (ATN), on maintenance hemodialysis (Friday, , Friday). 3. Congestive heart failure. 4. Anemia. 5. Hypocalcemia. 6. Hypoalbuminemia and malnutrition. 7. Peripheral vascular disease with gangrene of toes of both feet. 8. Recent history of respiratory failure. 9. History of dysphagia requiring PEG placement and feedings. 10. Diabetes mellitus. 11. Leukocytosis from various sources. 12. Funguria with Erica glabrata and Erica albicans of the urine. 13. Escherichia coli and Enterococcus urinary tract infection 10/29/2016. 14. Escherichia coli bacteremia 12/02/2016 (x2 cultures). 15. Repeat culture of the urine 12/02/2016 with E. coli, enterococcus species and Klebsiella pneumoniae, extended-spectrum beta-lactamase. 16. Repeat bacteremia 12/08/2016 with Escherichia coli. 17. Urine positive for Erica albicans 12/11/2016. 18. Clostridium difficile colitis negative on a few stool samples. 19. Bilateral pleural effusions. 20. 2 mm calcified granuloma in the right lower lobe. 21. CT scan of abdomen and pelvis 12/13/2016 showing large amount of pericholecystic fluid with distention of the gallbladder, which could be of acute cholecystitis. 22. Tumefaction sludge, poorly visualized gallstones or soft tissue masses are suspected within the lumen of the distended gallbladder. 23. Anasarca. 24. Status post splenectomy. 25. A 2.8 cm left parapelvic cyst and an adjacent 1.4 cm simple cyst lateral upper portion of the lower third left kidney noted. 26. Atherosclerotic vascular disease. 27. Osteoarthritis of the thoracic and lumbosacral spine. 28. History of acute ST elevation myocardial infarction, inferior wall, status post code STEMI with stent placement, as well as temporary pacer wire. 29. Hyperlipidemia. 30. Possible aspiration pneumonia. 31. S/p CT-guided percutaneous transhepatic cholecystostomy drain placement 06/22, [facility]. 32. Feeding tube replaced 01/23/2017 by GI (Dr. Helm) at [facility]. 33. S/p exchange of PEG to GJ and repositioning of a new perc cholecystostomy tube [facility] 03/03/17. Subjective: No major events or complaints other than above; no abd pain and under control with medications; no n/v/d; no sob or cp; + flatus; + BM; minimal activity Objective: Vitals: See below I's & O's: See below Exam: GENERAL: On exam, the patient was lying in bed and appeared to be comfortable and in no acute distress. ABDOMEN: Soft, nontender and nondistended. Percutaneous drain with purulent fluid. There are no peritoneal signs or guarding. SKIN: Skin appears to be pink and feels warm to touch. NEUROLOGIC: Patient is awake, alert, and follows commands appropriately. Able to speak in slightly higher volume than previously. Labs: See below Exam/Review of Systems Vital Signs Vitals Vital Signs Date Time Temp Pulse Resp B/P Pulse Ox O2 Delivery O2 Flow Rate FiO2 03/04/17 11:58 97.4 92 16 113/54 96 03/03/17 18:35 Nasal Cannula 03/03/17 08:20 21 03/01/17 08:37 3.0 Intake and Output 03/03/17 03/03/17 03/04/17 15:00 23:00 07:00 Intake Total 952 ml 972 ml Output Total 875 ml 750 ml Balance 77 ml 222 ml Results Result Diagram: 03/04/17 0702 03/04/17 0702 SHANA ROSARIO M.D. Mar 04, 2017 12:19
[2017-03-04] MEDS: FAT EMULSION 20% 500 ML IV SCH (15:22)
[2017-03-04] MEDS: EPOETIN 10000 UNITS/1 ML INJ (ESRD) SC SCH (17:13)
[2017-03-05] VITALS (12 sets, daily range): BP systolic 112–127; BP diastolic 51–64; PULSE 85–110; RESP 16–20
--- NOTE | 2017-03-05 01:45 | PN ---
Date/Time of Note Date/Time of Note DATE: 03/03/17 TIME: 16:37 Assessment/Plan VTE Prophylaxis VTE Prophylaxis Intervention: other (plavix) Lines/Catheters IV Catheter Type (from Nrsg): Peripheral IV Central line still needed: No Urinary Cath still in place: Yes Reason Cath still needed: terminal illness/intractable pain Assessment/Plan Assessment/Plan 1. abd abscess-peritonitis/ sepsis/ uti--new GJ tube/ new J tube 2. pulm effusion/ rld 3. cad-stent/ pad 4. fluid overload/ rob 5. dm 6. debility/ musc atrophy ---cont ivf ---cont iv atbx ---per all specialists orders ---cont all supoortive cares Subjective 24 Hr Interval Summary Free Text/Dictation awake, still w/ rt abd pain, still w/ inc abd girth+ heart--rr pulm--dec bs bibasilar abd--soft, llq tender, ruq tender ext--a few black toes, +1 pit edema SHAMA LOPEZ MD Mar 05, 2017 01:45
--- NOTE | 2017-03-05 02:01 | PN ---
Date/Time of Note Date/Time of Note DATE: 03/04/17 TIME: 15:46 Assessment/Plan VTE Prophylaxis VTE Prophylaxis Intervention: other (plavix) Lines/Catheters IV Catheter Type (from Nrsg): Peripheral IV Urinary Cath still in place: Yes Reason Cath still needed: other (indicate) (musc weak, incontinence) Assessment/Plan Assessment/Plan 1. peritonitis/ uti--new biliary drain, new GJ tube, new J tube, new luq abd drain 2. rob/ anemia/ fluid overload--felipa cath 3. cad-stent/ pad 4. dm 5. rld/ pulm effusion 6. debility/ musc atrophy ---cont tpn ---cont iv atbx ---cont all specialist cares ---awaiting swallow eval. Subjective 24 Hr Interval Summary Free Text/Dictation soft voice, less abd pain Exam/Review of Systems Vital Signs Vitals Vital Signs Date Time Temp Pulse Resp B/P Pulse Ox O2 Delivery O2 Flow Rate FiO2 03/05/17 00:14 86 03/05/17 00:00 98.0 18 113/57 100 03/04/17 20:00 Nasal Cannula 2.0 03/04/17 18:07 21 Intake and Output 03/04/17 03/04/17 03/05/17 15:00 23:00 07:00 Intake Total 1212 ml Output Total 600 ml Balance 612 ml Results a&o x3 rr dec bs bibasilar new gj tube, new j tube, new luq drain, new ruq drain in place; less tender a few black toes Result Diagram: 03/04/17 0703/04/17 0702 Results 24 hrs Laboratory Tests Test 03/04/17 01:52 03/04/17 07:02 03/04/17 09:23 03/04/17 13:12 Bedside Glucose 256 H 286 H 250 H White Blood Count 10.9 #H Red Blood Count 3.51 L Hemoglobin 9.6 L Hematocrit 33.9 L Mean Corpuscular Volume 96.6 Mean Corpuscular Hemoglobin 27.4 L Mean Corpuscular Hemoglobin Concent 28.3 L Red Cell Distribution Width 17.3 H Platelet Count 538 H Mean Platelet Volume 10.3 Neutrophils % 56.0 Lymphocytes % 17.7 Monocytes % 9.3 Eosinophils % 7.1 H Basophils % 0.5 Nucleated Red Blood Cells % 0.5 H Neutrophils # (Manual) 6.1 Lymphocytes # 1.9 Monocytes # 1.0 H Eosinophils # 0.8 H Basophils # 0.1 Nucleated Red Blood Cells # 0.1 H Sodium Level 144 Potassium Level 4.3 Chloride Level 106 Carbon Dioxide Level 27 Anion Gap 15 Blood Urea Nitrogen 41 H Creatinine 0.75 Glucose Level 282 #H Calcium Level 8.8 Phosphorus Level 4.4 Magnesium Level 2.0 Total Bilirubin 0.0 L Direct Bilirubin 0.00 Indirect Bilirubin 0.0 Aspartate Amino Transf (AST/SGOT) 26 Alanine Aminotransferase (ALT/SGPT) 22 Alkaline Phosphatase 159 H Total Protein 6.2 Albumin 2.4 L Globulin 3.80 H Albumin/Globulin Ratio 0.63 Random Vancomycin Level 9.2 Test 03/04/17 17:09 03/04/17 21:20 Bedside Glucose 182 151 Medications Medications Current Medications Ondansetron HCl (Zofran Inj) 4 mg Q6H PRN IV NAUSEA AND/OR VOMITING; Start at 16:00 Miscellaneous Information 1 ea NOTE XX ; Start 02/26/17 at 21:00 Glucose (Glutose) 15 gm Q15M PRN PO DECREASED GLUCOSE; Start 02/26/17 at 21:00 Glucose (Glutose) 22.5 gm Q15M PRN PO DECREASED GLUCOSE; Start 02/26/17 at 21: 00 Dextrose (D50w Syringe) 25 ml Q15M PRN IV DECREASED GLUCOSE; Start 02/26/17 at 21:00 Dextrose (D50w Syringe) 50 ml Q15M PRN IV DECREASED GLUCOSE; Start 02/26/17 at 21:00 Glucagon (Glucagen) 1 mg Q15M PRN IM DECREASED GLUCOSE; Start 02/26/17 at 21:00 Glucose (Glutose) 15 gm Q15M PRN BUCCAL DECREASED GLUCOSE; Start 02/26/17 at 21 :00 Miscellaneous Information This patient le... PRN PRN XX WOUND CARE; Start 02/27 at 03:30 Meropenem/Sodium Chloride (Merrem 1 Gm/50 ml (Pmx)) 50 ml @ 100 mls/hr Q8 IVPB Last administered on 03/04/17t 22:31; Admin Dose 100 MLS/HR; Start 02/27/17 at 14:00 Diagnostic Test (Pha) (Accu-Chek) 1 ea 02 XX Last administered on 03/03/17 02: 27; Admin Dose 1 EA; Start 02/28/17 at 02:00 Epoetin Raj (Epogen (Esrd)) 10,000 units TuThSa@17 SC Last administered on 17:13; Admin Dose 10,000 UNITS; Start 02/27/17 at 17:00 Insulin Human NPH (Humulin N) 8 unit BID@08,20 SC Last administered on 22:35; Admin Dose 8 UNIT; Start 03/02/17 at 20:00 Morphine Sulfate (morphine) 1 mg Q6H PRN IV PAIN LEVEL 1-5; Start 03/02/17 at 10:00 Enoxaparin Sodium 90 mg 90 mg Q12 SC Last administered on 03/04/17 21:22; Admin Dose 90 MG; Start 03/02/17 at 21:00 Total Parenteral Nutrition 1,000 ml @ 60 mls/hr [id number] IV Last administered on 03/04/17 15:22; Admin Dose 60 MLS/HR; Start 03/02/17 at 17:00 Fat Emulsion Intravenous (Liposyn Ii 20%) 500 ml @ 21 mls/hr [id number] IV Last administered on 03/04/17 15:22; Admin Dose 21 MLS/HR; Start 03/02/17 at 17:00 Famotidine (Pepcid Iv) 20 mg BID IV Last administered on 03/04/17 21:21; Admin Dose 20 MG; Start 03/03/17 at 21:00 SHAMA LOPEZ MD Mar 05, 2017 02:01
[2017-03-05] MEDS: ACCU-CHEK XX SCH (02:14)
[2017-03-05] MEDS: TPN 1,000 ML IV SCH ×2 (02:25→21:15)
[2017-03-05] MEDS: MEROPENEM 1 GM/50ML(PMX) 50 ML IVPB SCH ×3 (05:56→22:00)
--- NOTE | 2017-03-05 07:34 | CONS ---
Date/Time of Note Date/Time of Note DATE: 03/05/17 TIME: 07:31 Assessment/Plan Assessment/Plan Chief Complaint/Hosp Course 1) UTI, kleb +ESBL in urine change zosyn to merrem await final report on urine cx 02/28 - kleb +ESBL present in urine cx continue with merrem 2) hx of choleycystitis on CT the gall bladder looks ok re-consult dr. hernandes to see if drainage tube can be removed 03/01 - await removal of gall bladder drain 03/03 - Dr. Hernandes to eval for possible removal of GB drainage cath 03/05 - new biliary drain placed but no drainage from it ok for d/c of drain from ID perspective 3) abd wall fluid collection this tracks down to the pelvis and likely emanates from the g-tube will order CT abd with oral contrast via the PEG cx from around the g-tube pt may need surgical intervention for this will consider WBC scan continue with vanco/merrem get nasal swab for MRSA 02/28 - pt to get fluid collection surgically drained when she is medically cleared continue with vanco/merrem 03/01 - drain was placed for abd wall abscess and is draining tube feed looking fluid await d/c of PEG and replacement await culture results, continue with vanco/merrem 03/02 - drainage has MRSA and kleb +ESBL from abd wall continue with vanco/merrem not sure that pig tail cath will be able to drain all of this but a fair amount is coming out told nurse to get strict output on drainage consider swallow eval to see if pt still needs a g-tube 828 - still draining a significant amount of fluid and abd to RLQ is softening up drainage alone may be sufficient continue with vanco/merrem till the drain is out 03/05 - still draining well, pt has new GJ-tube in place when drainage is less than 15cc in 24 hours will re-image to see if it can come out or needs to be re-positioned on vanco/merrem 4) CAD hx of CABG 5) hx of anoxic encephalopathy 02/28 - pt is back to baseline Problems: Consultation Date/Type/Reason Admit Date/Time Feb 26, 2017 at 13:57 Initial Consult Date 02/27/17 Type of Consultation: ID Referring Provider: SHAMA LOPEZ MD 24 HR Interval Summary Free Text/Dictation pt got new biliary drain and placement of GJ-tube no F, C, NS, V, D Exam/Review of Systems Vital Signs Vitals Vital Signs Date Time Temp Pulse Resp B/P Pulse Ox O2 Delivery O2 Flow Rate FiO2 03/05/17 04:08 88 03/05/17 04:00 98.2 19 113/51 98 03/04/17 20:00 Nasal Cannula 2.0 03/04/17 18:07 21 Intake and Output 03/04/17 03/04/17 03/05/17 15:00 23:00 07:00 Intake Total 1262 ml 1050 ml Output Total 600 ml 540 ml Balance 662 ml 510 ml Exam Constitutional: alert, oriented Eyes: nl sclera Respiratory: clear to auscultation Cardiovascular: regular rate and rhythm Gastrointestinal: other (R biliary drain present, L abd abscess drainage still looks like tube feeds, GJ-tube present, abd on RLQ is less firm), soft Results Result Diagram: 03/04/17 0702 03/04/17 0702 Results 24 hrs Laboratory Tests Test 03/04/17 09:23 03/04/17 13:12 03/04/17 17:09 03/04/17 21:20 Bedside Glucose 286 H 250 H 182 151 Test 03/05/17 02:15 Bedside Glucose 177 Medications Medications Current Medications Ondansetron HCl (Zofran Inj) 4 mg Q6H PRN IV NAUSEA AND/OR VOMITING; Start at 16:00 Miscellaneous Information 1 ea NOTE XX ; Start 02/26/17 at 21:00 Glucose (Glutose) 15 gm Q15M PRN PO DECREASED GLUCOSE; Start 02/26/17 at 21:00 Glucose (Glutose) 22.5 gm Q15M PRN PO DECREASED GLUCOSE; Start 02/26/17 at 21: 00 Dextrose (D50w Syringe) 25 ml Q15M PRN IV DECREASED GLUCOSE; Start 02/26/17 at 21:00 Dextrose (D50w Syringe) 50 ml Q15M PRN IV DECREASED GLUCOSE; Start 02/26/17 at 21:00 Glucagon (Glucagen) 1 mg Q15M PRN IM DECREASED GLUCOSE; Start 02/26/17 at 21:00 Glucose (Glutose) 15 gm Q15M PRN BUCCAL DECREASED GLUCOSE; Start 02/26/17 at 21 :00 Miscellaneous Information This patient le... PRN PRN XX WOUND CARE; Start 02/27 at 03:30 Meropenem/Sodium Chloride (Merrem 1 Gm/50 ml (Pmx)) 50 ml @ 100 mls/hr Q8 IVPB Last administered on 03/05/17 05:56; Admin Dose 100 MLS/HR; Start 02/27/17 at 14:00 Diagnostic Test (Pha) (Accu-Chek) 1 ea 02 XX Last administered on 03/05/17 02: 14; Admin Dose 1 EA; Start 02/28/17 at 02:00 Epoetin Raj (Epogen (Esrd)) 10,000 units TuThSa@17 SC Last administered on 17:13; Admin Dose 10,000 UNITS; Start 02/27/17 at 17:00 Morphine Sulfate (morphine) 1 mg Q6H PRN IV PAIN LEVEL 1-5; Start 03/02/17 at 10:00 Enoxaparin Sodium 90 mg 90 mg Q12 SC Last administered on 03/04/17 21:22; Admin Dose 90 MG; Start 03/02/17 at 21:00 Total Parenteral Nutrition 1,000 ml @ 60 mls/hr [id number] IV Last administered on 03/05/17 02:25; Admin Dose 60 MLS/HR; Start 03/02/17 at 17:00 Fat Emulsion Intravenous (Liposyn Ii 20%) 500 ml @ 21 mls/hr [id number] IV Last administered on 03/04/17 15:22; Admin Dose 21 MLS/HR; Start 03/02/17 at 17:00 Famotidine (Pepcid Iv) 20 mg BID IV Last administered on 03/04/17 21:21; Admin Dose 20 MG; Start 03/03/17 at 21:00 Insulin Human NPH (Humulin N) 12 unit BID@08,20 SC ; Start 03/05/17 at 08:00 TR GOODEN MD Mar 05, 2017 07:34
[2017-03-05] MEDS: ALBUTEROL/IPRATROPIUM (NEB) 3 ML AMP HHN SCH ×3 (07:57→19:50)
[2017-03-05 08:07] LABS: ABNORMAL IP MESSAGE 1; BASOPHILS % 0.2 % (0.0-2.0); EOSINOPHILS % 7.7 % (0.0-7.0); HEMATOCRIT 31.4 % (37.0-47.0); HEMOGLOBIN 8.9 g/dl (12.0-16.0); LYMPHOCYTES # 2.2 10^3/ul (0.8-2.9); LYMPHOCYTES % 16.8 % (15.0-51.0); MEAN CORPUSCULAR HEMOGLOBIN 26.8 pg (29.0-33.0); MEAN CORPUSCULAR HGB CONC 28.3 g/dl (32.0-37.0); MEAN CORPUSCULAR VOLUME 94.6 fl (82.0-101.0); MEAN PLATELET VOLUME 9.5 fl (7.4-10.4); MONOCYTES % 7.8 % (0.0-11.0); NEUTROPHILS % 60.2 % (39.0-77.0); NUCLEATED RED BLOOD CELLS # 0.1 10^3/ul (0.0-0.0); NUCLEATED RED BLOOD CELLS% 0.5 /100WBC (0.0-0.0); PLATELET COUNT 554 10^3/UL (140-415); RED BLOOD COUNT 3.32 10^6/ul (4.20-5.40); RED CELL DISTRIBUTION WIDTH 17.2 % (11.5-14.5); WHITE BLOOD COUNT 12.8 10^3/ul (4.8-10.8)
[2017-03-05 08:09] LABS: POSITIVE DIFF @See below
[2017-03-05 08:45] LABS: ALBUMIN 2.3 g/dl (3.3-4.9); ALBUMIN/GLOBULIN RATIO 0.63; CALCIUM 8.8 mg/dl (8.4-10.2); CREATININE 0.78 mg/dl (0.44-1.00); POTASSIUM 4.4 mmol/L (3.5-5.1); TOTAL PROTEIN 5.9 g/dl (6.1-8.1)
[2017-03-05] MEDS: INSULIN ASPART [NOVOLOG] 3 ML PEN SC SCH ×4 (08:59→21:00)
[2017-03-05] MEDS: NPH, HUMAN INSULIN ISOPHANE 3ML VIAL SC SCH ×2 (09:00→20:07)
[2017-03-05] MEDS: ENOXAPARIN 100 MG/ML SYG SC SCH ×2 (09:00→21:16)
[2017-03-05] MEDS: FAMOTIDINE 20 MG INJ IV SCH ×2 (09:02→21:15)
--- NOTE | 2017-03-05 09:56 | PN ---
Date/Time of Note Date/Time of Note DATE: 03/05/17 TIME: 09:54 Assessment/Plan Lines/Catheters IV Catheter Type (from Nrs): Peripheral IV Rivas in Place (from Nrs): Yes Assessment/Plan Assessment/Plan [facility] Progress Note Date of Service: 03/05/2017 Place of service: [facility] fifth floor [facility] [place] Today's Assessment & Plan: Overall stable and improved post PEG to GJ and repositioning of a new perc cholecystostomy tube 03/03/17. Left abdominal wall abscess seems to be controlled with the drain. No new surgical recs. Agree with importance of nutrition. GB drain needs to stay until patient is much further and improved from current condition. No indication for acute surgical intervention. Awaiting swallowing study. Discussed with patient and answered all questions. With above assessment, I've recommended the following for today: 1. Continue current cares 2. Resume feeds under guidance of dieticians through jejunostomy (J) tube portion of gastrojejunostomy (GJ) tube 3. Use gastrostomy (G) portion of GJ to have patient on low intermittent suction 4. Very important: only use the G portion to administer meds into the stomach; do not use the J portion; may have the G portion clamped for 30 min after giving meds 5. Flush percutaneous cholecystostomy drain on the right side 10 cc NS toward patient TID 6. Consider formal evaluation of swallowing while patient is in-house and possible resumption of oral intake if she passes Thank you again for your great care of this very pleasant patient and wonderful family. If there are any questions, please feel free to call me at [phone]. Nature of presenting problem: High severity Please note that, given the extensive number of diagnoses or management options , the extensive amount and/or complexity of data needed to be reviewed, and I risk of complications and/or morbidity or mortality, this qualifies as high complexity type of decision-making. Disclaimer: Inadvertent spelling and grammatical errors are likely due to EHR/ dictation software use and do not reflect on the quality of delivered patient care. Also, please note that the electronic time recorded on this node does not necessarily reflect the actual time of the visit. Updated Clinical Summary: A very pleasant 71-year-old lady with multiple comorbid issues including BMI of 35.6 as well as what has been in the hospital since 09/2016 being found unresponsive and multiple issues including congestive heart failure, acute renal failure due to acute tubular necrosis requiring dialysis, urinary tract infection with bacteremia and multiple other issues, who was found to have possible signs of acute cholecystitis on recent imaging. D/c to [facility] ([place] ) 12/25/16. Readmitted to [facility] for abdominal wall pain on the left side on 01/16/2017. Urinary tract infection treated for E. coli. Thoracentesis with removal of approximately 1 L of fluid from her chest 2016. Percutaneous gallbladder drain exchange 01/18/2017. Feeding tube replaced 01/23/2017 by GI (Dr. Helm). Readmitted to [facility] 2016 with abdominal wall abscess. S/p exchange of PEG to GJ and repositioning of a new perc cholecystostomy tube 03/03/17. COMORBIDITIES: 1. BMI of 35.6. 2. Acute renal failure (ATN), on maintenance hemodialysis (Friday, , Friday). 3. Congestive heart failure. 4. Anemia. 5. Hypocalcemia. 6. Hypoalbuminemia and malnutrition. 7. Peripheral vascular disease with gangrene of toes of both feet. 8. Recent history of respiratory failure. 9. History of dysphagia requiring PEG placement and feedings. 10. Diabetes mellitus. 11. Leukocytosis from various sources. 12. Funguria with Erica glabrata and Erica albicans of the urine. 13. Escherichia coli and Enterococcus urinary tract infection 10/29/2016. 14. Escherichia coli bacteremia 12/02/2016 (x2 cultures). 15. Repeat culture of the urine 12/02/2016 with E. coli, enterococcus species and Klebsiella pneumoniae, extended-spectrum beta-lactamase. 16. Repeat bacteremia 12/08/2016 with Escherichia coli. 17. Urine positive for Erica albicans 12/11/2016. 18. Clostridium difficile colitis negative on a few stool samples. 19. Bilateral pleural effusions. 20. 2 mm calcified granuloma in the right lower lobe. 21. CT scan of abdomen and pelvis 12/13/2016 showing large amount of pericholecystic fluid with distention of the gallbladder, which could be of acute cholecystitis. 22. Tumefaction sludge, poorly visualized gallstones or soft tissue masses are suspected within the lumen of the distended gallbladder. 23. Anasarca. 24. Status post splenectomy. 25. A 2.8 cm left parapelvic cyst and an adjacent 1.4 cm simple cyst lateral upper portion of the lower third left kidney noted. 26. Atherosclerotic vascular disease. 27. Osteoarthritis of the thoracic and lumbosacral spine. 28. History of acute ST elevation myocardial infarction, inferior wall, status post code STEMI with stent placement, as well as temporary pacer wire. 29. Hyperlipidemia. 30. Possible aspiration pneumonia. 31. S/p CT-guided percutaneous transhepatic cholecystostomy drain placement 06/22, [facility]. 32. Feeding tube replaced 01/23/2017 by GI (Dr. Helm) at [facility]. 33. S/p exchange of PEG to GJ and repositioning of a new perc cholecystostomy tube [facility] 03/03/17. Subjective: No major events or complaints other than above; no abd pain and under control with medications; no n/v/d; no sob or cp; + flatus; + BM; minimal activity Objective: Vitals: See below I's & O's: See below Exam: GENERAL: On exam, the patient was lying in bed and appeared to be comfortable and in no acute distress. ABDOMEN: Soft, nontender and nondistended. Percutaneous drain with purulent fluid. There are no peritoneal signs or guarding. SKIN: Skin appears to be pink and feels warm to touch. NEUROLOGIC: Patient is awake, alert, and follows commands appropriately. Able to speak in slightly higher volume than previously. Labs: See below Exam/Review of Systems Vital Signs Vitals Vital Signs Date Time Temp Pulse Resp B/P Pulse Ox O2 Delivery O2 Flow Rate FiO2 03/05/17 08:12 94 03/05/17 07:35 97.9 16 114/55 96 03/04/17 20:00 Nasal Cannula 2.0 03/04/17 18:07 21 Intake and Output 03/04/17 03/04/17 03/05/17 15:00 23:00 07:00 Intake Total 1262 ml 1050 ml Output Total 600 ml 540 ml Balance 662 ml 510 ml Results Result Diagram: 03/05/17 0737 03/05/17 0737 SHANA ROSARIO M.D. Mar 05, 2017 09:56
[2017-03-05] MEDS ORDERED: BARIUM SULFATE 135 ML (E-Z HD) PO ONE ×2 (10:02→11:44)
[2017-03-05] MEDS ORDERED: BARIUM SULFATE 454 GM TUBE (E-Z PASTE) PO ONE (11:44)
--- NOTE | 2017-03-05 13:06 | RADRPT ---
PROCEDURE: Video-fluoroscopy swallowing study. CLINICAL INDICATION: Dysphagia. TECHNIQUE: Fluoroscopic guided video swallowing study was done in conjunction with the speech ther apist. The study was confined to the oral, pharyngeal, and cervical phases of the swallowing mechani sm. 3.3 minutes of fluoroscopy time was used. 30 series of images were obtained. COMPARISON: 01/30/2017. FINDINGS: There is aspiration during swallowing thin liquids with a cup. IMPRESSION: 1. Aspiration during swallowing. 2. Please refer to the speech therapist's recommendations for future feedings. RPTAT: QQ .Arnaldo Back MD, MD Date Time Electronically viewed and signed by .Arnaldo Back MD, on 03/05/2017 13:06 .R/
--- NOTE | 2017-03-05 14:05 | CONS ---
Date/Time of Note Date/Time of Note DATE: 03/05/17 TIME: 13:56 Assessment/Plan Assessment/Plan Chief Complaint/Hosp Course 1. Acute Renal Failure , she has prerenal azotemia , which is improving . She has some flank and peripheral edema . She may need diuretics if she continues to be in positive fluid balance . low serum albumin . She is now on TPN . She is overall feeling better.She passed her swallowing study and is going to start a diet . She should continue tube feeding so she can get off TPN . 2. Abdominal abscess , LUQ . She has a drainage tube in place . 3. ASHD , h/o cardiac arrest and acute PA in September 2016 . 4. DM , blood sugars are high , will adjust insulin dose 5. h/o CKD , was on dialysis . Now she is not requiring dialysis . We will call vascular surgeon to remove permacath.Dr Cedillo to be notified . 6. anemia 7. UTI with sepsis 8. h/o acute cholecystitis with cholecystotomy tube which seems to have become dislodged 9. malnourished Problems: Consultation Date/Type/Reason Admit Date/Time Feb 26, 2017 at 13:57 Initial Consult Date 02/27/17 Type of Consultation: ID Referring Provider: SHAMA LOPEZ MD 24 HR Interval Summary Free Text/Dictation Patient is awake and alert . She passed her swallowing study today and is going to start a diet . Constitutional: improved, no complaints Exam/Review of Systems Vital Signs Vitals Vital Signs Date Time Temp Pulse Resp B/P Pulse Ox O2 Delivery O2 Flow Rate FiO2 03/05/17 12:02 95 03/05/17 11:54 97.3 16 112/59 97 03/05/17 09:27 Nasal Cannula 2.0 03/04/17 18:07 21 Intake and Output 03/04/17 03/04/17 03/05/17 15:00 23:00 07:00 Intake Total 1262 ml 1050 ml Output Total 600 ml 540 ml Balance 662 ml 510 ml Exam she has flank edema , and gangrenous toes on both feet . Constitutional: alert, frail, obese, oriented ENMT: nl external ears & nose Respiratory: clear to auscultation, normal air movement Cardiovascular: edema, regular rate and rhythm Gastrointestinal: distended, soft Results Result Diagram: 03/05/17 0737 03/05/17 0737 Results 24 hrs Laboratory Tests Test 03/04/17 17:09 03/04/17 21:20 03/05/17 02:15 03/05/17 07:37 Bedside Glucose 182 151 177 White Blood Count 12.8 H Red Blood Count 3.32 L Hemoglobin 8.9 L Hematocrit 31.4 L Mean Corpuscular Volume 94.6 Mean Corpuscular Hemoglobin 26.8 L Mean Corpuscular Hemoglobin Concent 28.3 L Red Cell Distribution Width 17.2 H Platelet Count 554 H Mean Platelet Volume 9.5 Neutrophils % 60.2 Lymphocytes % 16.8 Monocytes % 7.8 Eosinophils % 7.7 H Basophils % 0.2 Nucleated Red Blood Cells % 0.5 H Neutrophils # (Manual) 7.7 H Lymphocytes # 2.2 Monocytes # 1.0 H Eosinophils # 1.0 H Basophils # 0.0 Nucleated Red Blood Cells # 0.1 H Sodium Level 141 Potassium Level 4.4 Chloride Level 104 Carbon Dioxide Level 27 Anion Gap 14 Blood Urea Nitrogen 44 H Creatinine 0.78 Glucose Level 206 Calcium Level 8.8 Total Bilirubin 0.0 L Direct Bilirubin 0.00 Indirect Bilirubin 0.0 Aspartate Amino Transf (AST/SGOT) 21 Alanine Aminotransferase (ALT/SGPT) 28 Alkaline Phosphatase 138 H Total Protein 5.9 L Albumin 2.3 L Globulin 3.60 H Albumin/Globulin Ratio 0.63 Triglycerides Level 162 H Test 03/05/17 07:49 03/05/17 12:19 Bedside Glucose 200 262 H Medications Medications Current Medications Ondansetron HCl (Zofran Inj) 4 mg Q6H PRN IV NAUSEA AND/OR VOMITING; Start at 16:00 Miscellaneous Information 1 ea NOTE XX ; Start 02/26/17 at 21:00 Glucose (Glutose) 15 gm Q15M PRN PO DECREASED GLUCOSE; Start 02/26/17 at 21:00 Glucose (Glutose) 22.5 gm Q15M PRN PO DECREASED GLUCOSE; Start 02/26/17 at 21: 00 Dextrose (D50w Syringe) 25 ml Q15M PRN IV DECREASED GLUCOSE; Start 02/26/17 at 21:00 Dextrose (D50w Syringe) 50 ml Q15M PRN IV DECREASED GLUCOSE; Start 02/26/17 at 21:00 Glucagon (Glucagen) 1 mg Q15M PRN IM DECREASED GLUCOSE; Start 02/26/17 at 21:00 Glucose (Glutose) 15 gm Q15M PRN BUCCAL DECREASED GLUCOSE; Start 02/26/17 at 21 :00 Miscellaneous Information This patient le... PRN PRN XX WOUND CARE; Start 02/27 at 03:30 Meropenem/Sodium Chloride (Merrem 1 Gm/50 ml (Pmx)) 50 ml @ 100 mls/hr Q8 IVPB Last administered on 03/05/17 13:19; Admin Dose 100 MLS/HR; Start 02/27/17 at 14:00 Diagnostic Test (Pha) (Accu-Chek) 1 ea 02 XX Last administered on 03/05/17 02: 14; Admin Dose 1 EA; Start 02/28/17 at 02:00 Epoetin Raj (Epogen (Esrd)) 10,000 units TuThSa@17 SC Last administered on 17:13; Admin Dose 10,000 UNITS; Start 02/27/17 at 17:00 Morphine Sulfate (morphine) 1 mg Q6H PRN IV PAIN LEVEL 1-5; Start 03/02/17 at 10:00 Enoxaparin Sodium 90 mg 90 mg Q12 SC Last administered on 03/05/17 09:00; Admin Dose 90 MG; Start 03/02/17 at 21:00 Total Parenteral Nutrition 1,000 ml @ 60 mls/hr [id number] IV Last administered on 03/05/17 02:25; Admin Dose 60 MLS/HR; Start 03/02/17 at 17:00 Fat Emulsion Intravenous (Liposyn Ii 20%) 500 ml @ 21 mls/hr [id number] IV Last administered on 03/04/17 15:22; Admin Dose 21 MLS/HR; Start 03/02/17 at 17:00 Famotidine (Pepcid Iv) 20 mg BID IV Last administered on 03/05/17 09:02; Admin Dose 20 MG; Start 03/03/17 at 21:00 Insulin Human NPH (Humulin N) 12 unit BID@08,20 SC Last administered on 09:00; Admin Dose 12 UNIT; Start 03/05/17 at 08:00 DAMIR MARTINEZ MD Mar 05, 2017 14:05
[2017-03-05] MEDS ORDERED: FUROSEMIDE 40 MG INJ IV ONE (15:00)
[2017-03-05] MEDS: FAT EMULSION 20% 500 ML IV SCH (15:51)
--- NOTE | 2017-03-05 15:57 | CONS ---
Date/Time of Note Date/Time of Note DATE: 03/05/17 TIME: 15:53 Assessment/Plan Assessment/Plan Chief Complaint/Hosp Course IMP: 1. 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 CHF-diastolic acute on chronic 7.UTI 8.PAD Recc: -Tele -will resume plavix antiplatelet agent for stent patency and follow fore any possible bleeding complications while also on lovenox for dvt -Follow BP and volume status closely and will start low dose BB s/p prior ME -Contine lovenox -Continue abx's and f/u cx data -gentle lasix diuresis as tolerated Problems: Consultation Date/Type/Reason Admit Date/Time Feb 26, 2017 at 13:57 Initial Consult Date 02/27/17 Type of Consultation: cardiology Reason for Consultation h/o stent Referring Provider: SHAMA LOPEZ MD Exam/Review of Systems Vital Signs Vitals Vital Signs Date Time Temp Pulse Resp B/P Pulse Ox O2 Delivery O2 Flow Rate FiO2 03/05/17 12:02 95 03/05/17 11:54 97.3 16 112/59 97 03/05/17 09:27 Nasal Cannula 2.0 03/04/17 18:07 21 Intake and Output 03/04/17 03/04/17 03/05/17 15:00 23:00 07:00 Intake Total 1262 ml 1050 ml Output Total 600 ml 540 ml Balance 662 ml 510 ml Exam Review of Systems: CONSTITUTIONAL: No fevers, chills. PULMONARY: No sob CARDIOVASCULAR: No chest pain/palpitations GASTROINTESTINAL: No nausea/vomiting. GENITOURINARY: No hematuria/dysuria. MUSCULOSKELETAL: No myagias/arthalgias. PSYCHIATRIC: The patient denies depression. NEUROLOGIC: No weakness Constitutional: alert Psych: no complaints Head: normocephalic ENMT: mucosa pink and moist Neck: supple Respiratory: diminished breath sounds (at bases/B) Gastrointestinal: other (biliary drain in place), soft Musculoskeletal: muscle weakness (generalized) Extremities: other (garenous changes of toes bilateralo) Neurological: lethargic Results Result Diagram: 03/05/17 0737 03/05/17 0737 Results 24 hrs Laboratory Tests Test 03/04/17 17:09 03/04/17 21:20 03/05/17 02:15 03/05/17 07:37 Bedside Glucose 182 151 177 White Blood Count 12.8 H Red Blood Count 3.32 L Hemoglobin 8.9 L Hematocrit 31.4 L Mean Corpuscular Volume 94.6 Mean Corpuscular Hemoglobin 26.8 L Mean Corpuscular Hemoglobin Concent 28.3 L Red Cell Distribution Width 17.2 H Platelet Count 554 H Mean Platelet Volume 9.5 Neutrophils % 60.2 Lymphocytes % 16.8 Monocytes % 7.8 Eosinophils % 7.7 H Basophils % 0.2 Nucleated Red Blood Cells % 0.5 H Neutrophils # (Manual) 7.7 H Lymphocytes # 2.2 Monocytes # 1.0 H Eosinophils # 1.0 H Basophils # 0.0 Nucleated Red Blood Cells # 0.1 H Sodium Level 141 Potassium Level 4.4 Chloride Level 104 Carbon Dioxide Level 27 Anion Gap 14 Blood Urea Nitrogen 44 H Creatinine 0.78 Glucose Level 206 Calcium Level 8.8 Total Bilirubin 0.0 L Direct Bilirubin 0.00 Indirect Bilirubin 0.0 Aspartate Amino Transf (AST/SGOT) 21 Alanine Aminotransferase (ALT/SGPT) 28 Alkaline Phosphatase 138 H Total Protein 5.9 L Albumin 2.3 L Globulin 3.60 H Albumin/Globulin Ratio 0.63 Triglycerides Level 162 H Test 03/05/17 07:49 03/05/17 12:19 Bedside Glucose 200 262 H Medications Medications Current Medications Ondansetron HCl (Zofran Inj) 4 mg Q6H PRN IV NAUSEA AND/OR VOMITING; Start at 16:00 Miscellaneous Information 1 ea NOTE XX ; Start 02/26/17 at 21:00 Glucose (Glutose) 15 gm Q15M PRN PO DECREASED GLUCOSE; Start 02/26/17 at 21:00 Glucose (Glutose) 22.5 gm Q15M PRN PO DECREASED GLUCOSE; Start 02/26/17 at 21: 00 Dextrose (D50w Syringe) 25 ml Q15M PRN IV DECREASED GLUCOSE; Start 02/26/17 at 21:00 Dextrose (D50w Syringe) 50 ml Q15M PRN IV DECREASED GLUCOSE; Start 02/26/17 at 21:00 Glucagon (Glucagen) 1 mg Q15M PRN IM DECREASED GLUCOSE; Start 02/26/17 at 21:00 Glucose (Glutose) 15 gm Q15M PRN BUCCAL DECREASED GLUCOSE; Start 02/26/17 at 21 :00 Miscellaneous Information This patient le... PRN PRN XX WOUND CARE; Start 02/27 at 03:30 Meropenem/Sodium Chloride (Merrem 1 Gm/50 ml (Pmx)) 50 ml @ 100 mls/hr Q8 IVPB Last administered on 03/05/17 13:19; Admin Dose 100 MLS/HR; Start 02/27/17 at 14:00 Diagnostic Test (Pha) (Accu-Chek) 1 ea 02 XX Last administered on 03/05/17 02: 14; Admin Dose 1 EA; Start 02/28/17 at 02:00 Epoetin Raj (Epogen (Esrd)) 10,000 units TuThSa@17 SC Last administered on 17:13; Admin Dose 10,000 UNITS; Start 02/27/17 at 17:00 Morphine Sulfate (morphine) 1 mg Q6H PRN IV PAIN LEVEL 1-5; Start 03/02/17 at 10:00 Enoxaparin Sodium 90 mg 90 mg Q12 SC Last administered on 03/05/17 09:00; Admin Dose 90 MG; Start 03/02/17 at 21:00 Total Parenteral Nutrition 1,000 ml @ 40 mls/hr Q24H IV Last administered on 02:25; Admin Dose 60 MLS/HR; Start 03/02/17 at 17:00 Fat Emulsion Intravenous (Liposyn Ii 20%) 500 ml @ 21 mls/hr [id number] IV Last administered on 03/05/17 15:51; Admin Dose 21 MLS/HR; Start 03/02/17 at 17:00 Famotidine (Pepcid Iv) 20 mg BID IV Last administered on 03/05/17 09:02; Admin Dose 20 MG; Start 03/03/17 at 21:00 Insulin Human NPH (Humulin N) 12 unit BID@08,20 SC Last administered on 09:00; Admin Dose 12 UNIT; Start 03/05/17 at 08:00 GILBERTO MONTALVO Mar 05, 2017 15:57
[2017-03-05] MEDS: CLOPIDOGREL 75 MG TAB PO SCH (17:31)
[2017-03-05] MEDS: METOPROLOL 25 MG TAB PO SCH (17:31)
[2017-03-06] VITALS (12 sets, daily range): BP systolic 122–135; BP diastolic 59–74; PULSE 83–90; RESP 16–20
[2017-03-06] MEDS: METOPROLOL 25 MG TAB PO SCH ×3 (01:00→22:41)
[2017-03-06] MEDS: ACCU-CHEK XX SCH (02:20)
[2017-03-06] MEDS: MEROPENEM 1 GM/50ML(PMX) 50 ML IVPB SCH ×3 (05:53→22:32)
[2017-03-06] MEDS: ALBUTEROL/IPRATROPIUM (NEB) 3 ML AMP HHN SCH ×3 (08:00→20:44)
[2017-03-06] MEDS: INSULIN ASPART [NOVOLOG] 3 ML PEN SC SCH ×4 (08:00→21:00)
--- NOTE | 2017-03-06 09:07 | PN ---
Date/Time of Note Date/Time of Note DATE: 03/05/17 TIME: 14:00 Assessment/Plan VTE Prophylaxis VTE Prophylaxis Intervention: LMWH Lines/Catheters IV Catheter Type (from Nrsg): Peripheral IV Central line still needed: No Urinary Cath still in place: Yes Reason Cath still needed: skin wounds contaminated by urine Assessment/Plan Assessment/Plan 1. peritonitis/ uti 2. rld, pulm effusion 3. rob, anemia, fluid overload 4. cad--stent, pad, dvt 5. dm 6. depression, debility with musc weak ---per all specialists ---start honey thickened pure diet ---dec tpn rate ---remove felipa cath miki ---cont iv atbx ---we need to remove as much tubes from pt's body as possible Subjective 24 Hr Interval Summary Free Text/Dictation weak, less abd pain, less leg pain Exam/Review of Systems Vital Signs Vitals Vital Signs Date Time Temp Pulse Resp B/P Pulse Ox O2 Delivery O2 Flow Rate FiO2 03/05/17 20:00 Nasal Cannula 03/04/17 18:07 21 Intake and Output 03/05/17 03/05/17 15:00 23:00 Intake Total 1050 ml Output Total Balance 1050 ml Exam lymphadema+ 5 tubes out of body+, sites clean & dry toes black+ dec bs bibasilar rr Results Result Diagram: 03/05/17 0737 03/05/17 0737 Results 24 hrs Laboratory Tests Test 03/05/17 12:19 03/05/17 17:12 03/05/17 21:12 03/06/17 01:53 Bedside Glucose 262 H 182 126 92 Test 03/06/17 08:09 Bedside Glucose 140 Medications Medications Current Medications Ondansetron HCl (Zofran Inj) 4 mg Q6H PRN IV NAUSEA AND/OR VOMITING; Start at 16:00 Miscellaneous Information 1 ea NOTE XX ; Start 02/26/17 at 21:00 Glucose (Glutose) 15 gm Q15M PRN PO DECREASED GLUCOSE; Start 02/26/17 at 21:00 Glucose (Glutose) 22.5 gm Q15M PRN PO DECREASED GLUCOSE; Start 02/26/17 at 21: 00 Dextrose (D50w Syringe) 25 ml Q15M PRN IV DECREASED GLUCOSE; Start 02/26/17 at 21:00 Dextrose (D50w Syringe) 50 ml Q15M PRN IV DECREASED GLUCOSE; Start 02/26/17 at 21:00 Glucagon (Glucagen) 1 mg Q15M PRN IM DECREASED GLUCOSE; Start 02/26/17 at 21:00 Glucose (Glutose) 15 gm Q15M PRN BUCCAL DECREASED GLUCOSE; Start 02/26/17 at 21 :00 Miscellaneous Information This patient le... PRN PRN XX WOUND CARE; Start 02/27 at 03:30 Meropenem/Sodium Chloride (Merrem 1 Gm/50 ml (Pmx)) 50 ml @ 100 mls/hr Q8 IVPB Last administered on 03/06/17 05:53; Admin Dose 100 MLS/HR; Start 02/27/17 at 14:00 Diagnostic Test (Pha) (Accu-Chek) 1 ea 02 XX Last administered on 03/06/17 02: 20; Admin Dose 1 EA; Start 02/28/17 at 02:00 Epoetin Raj (Epogen (Esrd)) 10,000 units TuThSa@17 SC Last administered on 17:13; Admin Dose 10,000 UNITS; Start 02/27/17 at 17:00 Morphine Sulfate (morphine) 1 mg Q6H PRN IV PAIN LEVEL 1-5; Start 03/02/17 at 10:00 Enoxaparin Sodium 90 mg 90 mg Q12 SC Last administered on 03/05/17 21:16; Admin Dose 90 MG; Start 03/02/17 at 21:00 Total Parenteral Nutrition 1,000 ml @ 40 mls/hr Q24H IV Last administered on 21:15; Admin Dose 40 MLS/HR; Start 03/02/17 at 17:00 Fat Emulsion Intravenous (Liposyn Ii 20%) 500 ml @ 21 mls/hr [id number] IV Last administered on 03/05/17 15:51; Admin Dose 21 MLS/HR; Start 03/02/17 at 17:00 Famotidine (Pepcid Iv) 20 mg BID IV Last administered on 03/05/17 21:15; Admin Dose 20 MG; Start 03/03/17 at 21:00 Insulin Human NPH (Humulin N) 12 unit BID@08,20 SC Last administered on 20:07; Admin Dose 12 UNIT; Start 03/05/17 at 08:00 Clopidogrel Bisulfate (plaVIX) 75 mg DAILY PO Last administered on 03/05/17 17 :31; Admin Dose 75 MG; Start 03/05/17 at 17:00 Metoprolol Tartrate (Lopressor) 12.5 mg BID PO Last administered on 03/05/17 17:31; Admin Dose 12.5 MG; Start 03/05/17 at 17:00 SHAMA LOPEZ MD Mar 06, 2017 09:07
--- NOTE | 2017-03-06 09:12 | PN ---
Date/Time of Note Date/Time of Note DATE: 03/06/17 TIME: 09:07 Assessment/Plan VTE Prophylaxis VTE Prophylaxis Intervention: LMWH, other (plavix) Lines/Catheters IV Catheter Type (from Nrsg): Peripheral IV Central line still needed: No Urinary Cath still in place: Yes Reason Cath still needed: skin wounds contaminated by urine Assessment/Plan Assessment/Plan 1. peritonitis/ uti 2. s/p cholangitis 3. rld, pulm effusion 4. rob, fluid overload, anemia 5. dm 6. debility/ depression/ guarded px ---cont all specialists' cares ---cont iv atbx ---dec tpn rate ---started metoprolol & plavix ---cont lovenox Subjective 24 Hr Interval Summary Free Text/Dictation awake, quiet, soft voice, less pain Exam/Review of Systems Vital Signs Vitals Vital Signs Date Time Temp Pulse Resp B/P Pulse Ox O2 Delivery O2 Flow Rate FiO2 03/06/17 08:30 88 03/06/17 07:50 98.4 16 135/73 100 03/06/17 05:30 2.0 03/05/17 20:00 Nasal Cannula 03/04/17 18:07 21 Intake and Output 03/05/17 03/05/17 03/06/17 15:00 23:00 07:00 Intake Total 1050 ml Output Total 700 ml Balance 1050 ml -700 ml Exam ate diet by mouth+ rr bibasilar dec bs+ tubes sites clean & dry, luq abd drain still with yellow body fluid+ a few toes black Results Result Diagram: 03/05/17 0737 03/05/1737 Results 24 hrs Laboratory Tests Test 03/05/17 12:19 03/05/17 17:12 03/05/17 21:12 03/06/17 01:53 Bedside Glucose 262 H 182 126 92 Test 03/06/17 08:09 Bedside Glucose 140 Medications Medications Current Medications Ondansetron HCl (Zofran Inj) 4 mg Q6H PRN IV NAUSEA AND/OR VOMITING; Start at 16:00 Miscellaneous Information 1 ea NOTE XX ; Start 02/26/17 at 21:00 Glucose (Glutose) 15 gm Q15M PRN PO DECREASED GLUCOSE; Start 02/26/17 at 21:00 Glucose (Glutose) 22.5 gm Q15M PRN PO DECREASED GLUCOSE; Start 02/26/17 at 21: 00 Dextrose (D50w Syringe) 25 ml Q15M PRN IV DECREASED GLUCOSE; Start 02/26/17 at 21:00 Dextrose (D50w Syringe) 50 ml Q15M PRN IV DECREASED GLUCOSE; Start 02/26/17 at 21:00 Glucagon (Glucagen) 1 mg Q15M PRN IM DECREASED GLUCOSE; Start 02/26/17 at 21:00 Glucose (Glutose) 15 gm Q15M PRN BUCCAL DECREASED GLUCOSE; Start 02/26/17 at 21 :00 Miscellaneous Information This patient le... PRN PRN XX WOUND CARE; Start 02/27 at 03:30 Meropenem/Sodium Chloride (Merrem 1 Gm/50 ml (Pmx)) 50 ml @ 100 mls/hr Q8 IVPB Last administered on 03/06/17 05:53; Admin Dose 100 MLS/HR; Start 02/27/17 at 14:00 Diagnostic Test (Pha) (Accu-Chek) 1 ea 02 XX Last administered on 03/06/17 02: 20; Admin Dose 1 EA; Start 02/28/17 at 02:00 Epoetin Raj (Epogen (Esrd)) 10,000 units TuThSa@17 SC Last administered on 17:13; Admin Dose 10,000 UNITS; Start 02/27/17 at 17:00 Morphine Sulfate (morphine) 1 mg Q6H PRN IV PAIN LEVEL 1-5; Start 03/02/17 at 10:00 Enoxaparin Sodium 90 mg 90 mg Q12 SC Last administered on 03/05/17 21:16; Admin Dose 90 MG; Start 03/02/17 at 21:00 Total Parenteral Nutrition 1,000 ml @ 40 mls/hr Q24H IV Last administered on 21:15; Admin Dose 40 MLS/HR; Start 03/02/17 at 17:00 Fat Emulsion Intravenous (Liposyn Ii 20%) 500 ml @ 21 mls/hr [id number] IV Last administered on 03/05/17 15:51; Admin Dose 21 MLS/HR; Start 03/02/17 at 17:00 Famotidine (Pepcid Iv) 20 mg BID IV Last administered on 03/05/17 21:15; Admin Dose 20 MG; Start 03/03/17 at 21:00 Insulin Human NPH (Humulin N) 12 unit BID@08,20 SC Last administered on 20:07; Admin Dose 12 UNIT; Start 03/05/17 at 08:00 Clopidogrel Bisulfate (plaVIX) 75 mg DAILY PO Last administered on 03/05/17 17 :31; Admin Dose 75 MG; Start 03/05/17 at 17:00 Metoprolol Tartrate (Lopressor) 12.5 mg BID PO Last administered on 03/05/17 17:31; Admin Dose 12.5 MG; Start 03/05/17 at 17:00 SHAMA LOPEZ MD Mar 06, 2017 09:12
[2017-03-06] MEDS: CLOPIDOGREL 75 MG TAB PO SCH (09:35)
[2017-03-06] MEDS: ENOXAPARIN 100 MG/ML SYG SC SCH ×2 (09:36→21:12)
[2017-03-06] MEDS: NPH, HUMAN INSULIN ISOPHANE 3ML VIAL SC SCH ×2 (09:37→22:43)
--- NOTE | 2017-03-06 09:42 | PN ---
Date/Time of Note Date/Time of Note DATE: 03/06/17 TIME: 09:35 Assessment/Plan Lines/Catheters IV Catheter Type (from Nrs): Peripheral IV Rivas in Place (from Nrs): Yes Assessment/Plan Assessment/Plan [facility] Progress Note Date of Service: 03/06/2017 Place of service: [facility] Today's Assessment & Plan: Overall stable and improved. Passed her swallowing test for thick fluids. Very encouraging. I reviewed drain care with nursing staff, put orders in, and left a message for Dr. Duncan. Due to the complex nature of her clinical picture, I would like to be the only person managing the decisions regarding the drains. The perc GB drain needs to stay for now until patient is well enough to have a lap myron. The abdominal drain needs to stay until the abd wall abscess is completely healed. 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 Even though patient will hopefully be able to tolerate more orals, her nutritional state demands aggressive replacement and for this reason, I recommend we continue the J feeds until patient can demonstrate adequate oral intake. We can wean off her TPN in the meantime. Very important to flush both perc GB drain and the abdominal wall drain with 10 cc NS toward patient TID and keep accurate and strict I's and O's. Reviewed again with patient's nurse. With above assessment, I've recommended the following for today: 1. Continue current cares 2. Jejunostomy (J) tube feeds at 60 cc/hr and clamp G portion of gastrojejunostomy (GJ) tube 3. Very important: only use the G portion to administer meds into the stomach; do not use the J portion 4. Strict and accurate I's and O's 5. Flush percutaneous cholecystostomy drain on the right side and the abdominal wall drain on the left side with 10 cc NS toward patient TID 6. Advance diet as tolerated by the patient as guided by the swallow test results Thank you again for your great care of this very pleasant patient and wonderful family. If there are any questions, please feel free to call me at [phone]. Nature of presenting problem: High severity Please note that, given the extensive number of diagnoses or management options , the extensive amount and/or complexity of data needed to be reviewed, and I risk of complications and/or morbidity or mortality, this qualifies as high complexity type of decision-making. Disclaimer: Inadvertent spelling and grammatical errors are likely due to EHR/ dictation software use and do not reflect on the quality of delivered patient care. Also, please note that the electronic time recorded on this node does not necessarily reflect the actual time of the visit. Updated Clinical Summary: A very pleasant 71-year-old lady with multiple comorbid issues including BMI of 35.6 as well as what has been in the hospital since 09/2016 being found unresponsive and multiple issues including congestive heart failure, acute renal failure due to acute tubular necrosis requiring dialysis, urinary tract infection with bacteremia and multiple other issues, who was found to have possible signs of acute cholecystitis on recent imaging. D/c to [facility] ([place] ) 12/25/16. Readmitted to [facility] for abdominal wall pain on the left side on 01/16/2017. Urinary tract infection treated for E. coli. Thoracentesis with removal of approximately 1 L of fluid from her chest 2016. Percutaneous gallbladder drain exchange 01/18/2017. Feeding tube replaced 01/23/2017 by GI (Dr. Helm). Readmitted to [facility] 2016 with abdominal wall abscess. S/p exchange of PEG to GJ and repositioning of a new perc cholecystostomy tube 03/03/17. COMORBIDITIES: 1. BMI of 35.6. 2. Acute renal failure (ATN), on maintenance hemodialysis (Friday, , Friday). 3. Congestive heart failure. 4. Anemia. 5. Hypocalcemia. 6. Hypoalbuminemia and malnutrition. 7. Peripheral vascular disease with gangrene of toes of both feet. 8. Recent history of respiratory failure. 9. History of dysphagia requiring PEG placement and feedings. 10. Diabetes mellitus. 11. Leukocytosis from various sources. 12. Funguria with Erica glabrata and Erica albicans of the urine. 13. Escherichia coli and Enterococcus urinary tract infection 10/29/2016. 14. Escherichia coli bacteremia 12/02/2016 (x2 cultures). 15. Repeat culture of the urine 12/02/2016 with E. coli, enterococcus species and Klebsiella pneumoniae, extended-spectrum beta-lactamase. 16. Repeat bacteremia 12/08/2016 with Escherichia coli. 17. Urine positive for Erica albicans 12/11/2016. 18. Clostridium difficile colitis negative on a few stool samples. 19. Bilateral pleural effusions. 20. 2 mm calcified granuloma in the right lower lobe. 21. CT scan of abdomen and pelvis 12/13/2016 showing large amount of pericholecystic fluid with distention of the gallbladder, which could be of acute cholecystitis. 22. Tumefaction sludge, poorly visualized gallstones or soft tissue masses are suspected within the lumen of the distended gallbladder. 23. Anasarca. 24. Status post splenectomy. 25. A 2.8 cm left parapelvic cyst and an adjacent 1.4 cm simple cyst lateral upper portion of the lower third left kidney noted. 26. Atherosclerotic vascular disease. 27. Osteoarthritis of the thoracic and lumbosacral spine. 28. History of acute ST elevation myocardial infarction, inferior wall, status post code STEMI with stent placement, as well as temporary pacer wire. 29. Hyperlipidemia. 30. Possible aspiration pneumonia. 31. S/p CT-guided percutaneous transhepatic cholecystostomy drain placement 06/22, [facility]. 32. Feeding tube replaced 01/23/2017 by GI (Dr. Helm) at [facility]. 33. S/p exchange of PEG to GJ and repositioning of a new perc cholecystostomy tube [facility] 03/03/17. Subjective: No major events or complaints other than above; no abd pain and under control with medications; no n/v/d; no sob or cp; + flatus; + BM; minimal activity Objective: Vitals: See below I's & O's: See below Exam: GENERAL: On exam, the patient was lying in bed and appeared to be comfortable and in no acute distress. ABDOMEN: Soft, nontender and nondistended. Percutaneous drain with purulent fluid. There are no peritoneal signs or guarding. Perc GB drain with bilious output (small); perc L sided drain with purulent output (small amounts) SKIN: Skin appears to be pink and feels warm to touch. NEUROLOGIC: Patient is awake, alert, and follows commands appropriately. Able to speak in slightly higher volume than previously. Labs: See below Exam/Review of Systems Vital Signs Vitals Vital Signs Date Time Temp Pulse Resp B/P Pulse Ox O2 Delivery O2 Flow Rate FiO2 03/06/17 08:30 88 03/06/17 07:50 98.4 16 135/73 100 03/06/17 05:30 2.0 03/05/17 20:00 Nasal Cannula 03/04/17 18:07 21 Intake and Output 03/05/17 03/05/17 03/06/17 15:00 23:00 07:00 Intake Total 1050 ml Output Total 700 ml Balance 1050 ml -700 ml Results Result Diagram: 03/05/17 0737 03/05/17 0737 SHANA ROSARIO M.D. Mar 06, 2017 09:42
--- NOTE | 2017-03-06 11:12 | CONS ---
Date/Time of Note Date/Time of Note DATE: 03/06/17 TIME: 11:08 Assessment/Plan Assessment/Plan Additional Assessment/Plan 1. Renal fx is stable 2. Apprec surgery follow up and his rec- 1. Continue current cares 2. Jejunostomy (J) tube feeds at 60 cc/hr and clamp G portion of gastrojejunostomy (GJ) tube 3. Very important: only use the G portion to administer meds into the stomach; do not use the J portion 4. Strict and accurate I's and O's 5. Flush percutaneous cholecystostomy drain on the right side and the abdominal wall drain on the left side with 10 cc NS toward patient TID 6. Advance diet as tolerated by the patient as guided by the swallow test results 3. DVT being treated with therapeutic Lovenox, if no other surgical intervention needed may want to start eliquis or equivalent 4. Will reduce TPN again and dc tomm if tube feedings are not problematic. 5. Will diurese as I>>O and much sacral edema. 6. Rev with surgery and ID Consultation Date/Type/Reason Admit Date/Time Feb 26, 2017 at 13:57 Initial Consult Date 02/27/17 Type of Consultation: cardiology Referring Provider: SHAMA LOPEZ MD Detailed Summary Respiratory: No cough, No shortness of breath Cardiovascular: chest pain Gastrointestinal: No pain, No vomiting Exam/Review of Systems Vital Signs Vitals Vital Signs Date Time Temp Pulse Resp B/P Pulse Ox O2 Delivery O2 Flow Rate FiO2 03/06/17 08:30 88 03/06/17 07:50 98.4 16 135/73 100 03/06/17 05:30 2.0 03/05/17 20:00 Nasal Cannula 03/04/17 18:07 21 Intake and Output 03/05/17 03/05/17 03/06/17 15:00 23:00 07:00 Intake Total 1050 ml Output Total 700 ml Balance 1050 ml -700 ml Exam Neck: No jvd Respiratory: clear to auscultation, diminished breath sounds Cardiovascular: regular rate and rhythm Gastrointestinal: soft Extremities: edema (3-4+ sacral edema) Results Result Diagram: 03/05/17 0737 03/05/17 0737 Results 24 hrs Laboratory Tests Test 03/05/17 12:19 03/05/17 17:12 03/05/17 21:12 03/06/17 01:53 Bedside Glucose 262 H 182 126 92 Test 03/06/17 08:09 Bedside Glucose 140 Medications Medications Current Medications Ondansetron HCl (Zofran Inj) 4 mg Q6H PRN IV NAUSEA AND/OR VOMITING; Start at 16:00 Miscellaneous Information 1 ea NOTE XX ; Start 02/26/17 at 21:00 Glucose (Glutose) 15 gm Q15M PRN PO DECREASED GLUCOSE; Start 02/26/17 at 21:00 Glucose (Glutose) 22.5 gm Q15M PRN PO DECREASED GLUCOSE; Start 02/26/17 at 21: 00 Dextrose (D50w Syringe) 25 ml Q15M PRN IV DECREASED GLUCOSE; Start 02/26/17 at 21:00 Dextrose (D50w Syringe) 50 ml Q15M PRN IV DECREASED GLUCOSE; Start 02/26/17 at 21:00 Glucagon (Glucagen) 1 mg Q15M PRN IM DECREASED GLUCOSE; Start 02/26/17 at 21:00 Glucose (Glutose) 15 gm Q15M PRN BUCCAL DECREASED GLUCOSE; Start 02/26/17 at 21 :00 Miscellaneous Information This patient le... PRN PRN XX WOUND CARE; Start 02/27 at 03:30 Meropenem/Sodium Chloride (Merrem 1 Gm/50 ml (Pmx)) 50 ml @ 100 mls/hr Q8 IVPB Last administered on 03/06/17 05:53; Admin Dose 100 MLS/HR; Start 02/27/17 at 14:00 Diagnostic Test (Pha) (Accu-Chek) 1 ea 02 XX Last administered on 03/06/17 02: 20; Admin Dose 1 EA; Start 02/28/17 at 02:00 Epoetin Raj (Epogen (Esrd)) 10,000 units TuThSa@17 SC Last administered on 17:13; Admin Dose 10,000 UNITS; Start 02/27/17 at 17:00 Morphine Sulfate (morphine) 1 mg Q6H PRN IV PAIN LEVEL 1-5; Start 03/02/17 at 10:00 Enoxaparin Sodium 90 mg 90 mg Q12 SC Last administered on 03/06/17 09:36; Admin Dose 90 MG; Start 03/02/17 at 21:00 Total Parenteral Nutrition 1,000 ml @ 40 mls/hr Q24H IV Last administered on 21:15; Admin Dose 40 MLS/HR; Start 03/02/17 at 17:00 Fat Emulsion Intravenous (Liposyn Ii 20%) 500 ml @ 21 mls/hr [id number] IV Last administered on 03/05/17 15:51; Admin Dose 21 MLS/HR; Start 03/02/17 at 17:00 Famotidine (Pepcid Iv) 20 mg BID IV Last administered on 03/05/17 21:15; Admin Dose 20 MG; Start 03/03/17 at 21:00 Insulin Human NPH (Humulin N) 12 unit BID@08,20 SC Last administered on 09:37; Admin Dose 12 UNIT; Start 03/05/17 at 08:00 Clopidogrel Bisulfate (plaVIX) 75 mg DAILY PO Last administered on 03/06/17 09 :35; Admin Dose 75 MG; Start 03/05/17 at 17:00 Metoprolol Tartrate (Lopressor) 12.5 mg BID PO Last administered on 03/06/17 09:34; Admin Dose 12.5 MG; Start 03/05/17 at 17:00 FAZAL LAFLEUR MD Mar 06, 2017 11:12
[2017-03-06] MEDS ORDERED: FUROSEMIDE 40 MG INJ IV ONE (11:30)
[2017-03-06] MEDS ORDERED: POTASSIUM CHLORIDE 20 MEQ POWDER FOR ORAL SOLN GTB ONE (11:30)
[2017-03-06] MEDS ORDERED: POTASSIUM CHLORIDE 20 MEQ POWDER FOR ORAL SOLN JT ONE (11:30)
[2017-03-06] MEDS: FAMOTIDINE 20 MG INJ IV SCH ×2 (12:09→22:32)
[2017-03-06 14:16] LABS: ABNORMAL IP MESSAGE 1; BASOPHIL # 0.1 10^3/ul (0.0-0.1); BASOPHILS % 0.8 % (0.0-2.0); EOSINOPHILS % 8.4 % (0.0-7.0); HEMATOCRIT 31.7 % (37.0-47.0); HEMOGLOBIN 9.4 g/dl (12.0-16.0); LYMPHOCYTES # 1.5 10^3/ul (0.8-2.9); LYMPHOCYTES % 13.1 % (15.0-51.0); MEAN CORPUSCULAR HEMOGLOBIN 27.6 pg (29.0-33.0); MEAN CORPUSCULAR HGB CONC 29.7 g/dl (32.0-37.0); MEAN PLATELET VOLUME 9.8 fl (7.4-10.4); MONOCYTE # 0.7 10^3/ul (0.3-0.9); NEUTROPHILS % 66.6 % (39.0-77.0); NUCLEATED RED BLOOD CELLS # 0.1 10^3/ul (0.0-0.0); NUCLEATED RED BLOOD CELLS% 0.4 /100WBC (0.0-0.0); PLATELET COUNT 522 10^3/UL (140-415); RED BLOOD COUNT 3.41 10^6/ul (4.20-5.40); RED CELL DISTRIBUTION WIDTH 16.9 % (11.5-14.5); WHITE BLOOD COUNT 11.6 10^3/ul (4.8-10.8)
[2017-03-06 14:18] LABS: POSITIVE DIFF @See below
[2017-03-06 14:22] LABS: CREATININE 0.73 mg/dl (0.44-1.00); POTASSIUM 4.6 mmol/L (3.5-5.1)
[2017-03-06 14:23] LABS: ALBUMIN 2.1 g/dl (3.3-4.9); MAGNESIUM 2.1 mg/dl (1.7-2.5)
[2017-03-06] MEDS: EPOETIN 10000 UNITS/1 ML INJ (ESRD) SC SCH (16:04)
--- NOTE | 2017-03-06 17:03 | RADRPT ---
Vent Rate: 86 bpm RR Interval: 0 msec NJ Interval: 142 msec QRS Duration: 74 msec QT Interval: 352 msec QTC Interval: 421 msec P-R-T Gap: 47 - 23 - 56 degrees Normal sinus rhythm Low voltage QRS Cannot rule out Anterior infarct , age undetermined Abnormal ECG Electronically Signed By: Kodak Lund [id number]
[2017-03-06] MEDS: FAT EMULSION 20% 500 ML IV SCH (17:40)
--- NOTE | 2017-03-06 21:40 | CONS ---
Date/Time of Note Date/Time of Note DATE: 03/06/17 TIME: 21:37 Assessment/Plan Assessment/Plan Chief Complaint/Hosp Course IMP: 1. 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 CHF-diastolic acute on chronic 7.UTI 8.PAD 9. Cholescytitis s/p biliary drain Recc: -Tele -Continue plavix -Follow BP and volume status closely and will start low dose BB s/p prior MS -Contine lovenox -Continue abx's and f/u cx data -Continue daily lasix spot dosing as tolerated -continue feeds thru GJ tube(J port) -follow bilary drainage Problems: Consultation Date/Type/Reason Admit Date/Time Feb 26, 2017 at 13:57 Initial Consult Date 02/27/17 Type of Consultation: cardiology Reason for Consultation h/o stent/chf Referring Provider: SHAMA LOPEZ MD Exam/Review of Systems Vital Signs Vitals Vital Signs Date Time Temp Pulse Resp B/P Pulse Ox O2 Delivery O2 Flow Rate FiO2 03/06/17 21:30 2.0 03/06/17 20:45 94 20 99 Nasal Cannula 28 03/06/17 19:29 97.9 132/61 Intake and Output 03/05/17 03/05/17 03/06/17 15:00 23:00 07:00 Intake Total 1050 ml Output Total 700 ml Balance 1050 ml -700 ml Exam Review of Systems: CONSTITUTIONAL: No fevers, chills. PULMONARY: No sob CARDIOVASCULAR: No chest pain/palpitations GASTROINTESTINAL: No nausea/vomiting. GENITOURINARY: No hematuria/dysuria. MUSCULOSKELETAL: No myagias/arthalgias. PSYCHIATRIC: The patient denies depression. NEUROLOGIC: mild generalized weakness Constitutional: alert Psych: no complaints Head: normocephalic ENMT: mucosa pink and moist Neck: jvd (9 cm water), supple Respiratory: diminished breath sounds (at bases/B) Cardiovascular: regular rate and rhythm Gastrointestinal: non-tender, soft Musculoskeletal: muscle tone (normal) Extremities: pitting pedal edema (bilateral) Neurological: other (No focal deficits) Results Result Diagram: 03/06/17 1320 03/06/17 1320 Results 24 hrs Laboratory Tests Test 03/06/17 01:53 03/06/17 08:09 03/06/17 12:14 03/06/17 13:20 Bedside Glucose 92 140 195 White Blood Count 11.6 H Red Blood Count 3.41 L Hemoglobin 9.4 L Hematocrit 31.7 L Mean Corpuscular Volume 93.0 Mean Corpuscular Hemoglobin 27.6 L Mean Corpuscular Hemoglobin Concent 29.7 L Red Cell Distribution Width 16.9 H Platelet Count 522 H Mean Platelet Volume 9.8 Neutrophils % 66.6 Lymphocytes % 13.1 L Monocytes % 6.0 Eosinophils % 8.4 H Basophils % 0.8 Nucleated Red Blood Cells % 0.4 H Neutrophils # (Manual) 7.7 H Lymphocytes # 1.5 Monocytes # 0.7 Eosinophils # 1.0 H Basophils # 0.1 Nucleated Red Blood Cells # 0.1 H Sodium Level 137 Potassium Level 4.6 Chloride Level 101 Carbon Dioxide Level 25 Anion Gap 16 Blood Urea Nitrogen 45 H Creatinine 0.73 Glucose Level 175 Calcium Level 9.0 Magnesium Level 2.1 Albumin 2.1 L Test 03/06/17 17:12 03/06/17 20:57 Bedside Glucose 128 112 Medications Medications Current Medications Ondansetron HCl (Zofran Inj) 4 mg Q6H PRN IV NAUSEA AND/OR VOMITING; Start at 16:00 Miscellaneous Information 1 ea NOTE XX ; Start 02/26/17 at 21:00 Glucose (Glutose) 15 gm Q15M PRN PO DECREASED GLUCOSE; Start 02/26/17 at 21:00 Glucose (Glutose) 22.5 gm Q15M PRN PO DECREASED GLUCOSE; Start 02/26/17 at 21: 00 Dextrose (D50w Syringe) 25 ml Q15M PRN IV DECREASED GLUCOSE; Start 02/26/17 at 21:00 Dextrose (D50w Syringe) 50 ml Q15M PRN IV DECREASED GLUCOSE; Start 02/26/17 at 21:00 Glucagon (Glucagen) 1 mg Q15M PRN IM DECREASED GLUCOSE; Start 02/26/17 at 21:00 Glucose (Glutose) 15 gm Q15M PRN BUCCAL DECREASED GLUCOSE; Start 02/26/17 at 21 :00 Miscellaneous Information This patient le... PRN PRN XX WOUND CARE; Start 02/27 at 03:30 Meropenem/Sodium Chloride (Merrem 1 Gm/50 ml (Pmx)) 50 ml @ 100 mls/hr Q8 IVPB Last administered on 03/06/17 16:05; Admin Dose 100 MLS/HR; Start 02/27/17 at 14:00 Diagnostic Test (Pha) (Accu-Chek) 1 ea 02 XX Last administered on 03/06/17 02: 20; Admin Dose 1 EA; Start 02/28/17 at 02:00 Epoetin Raj (Epogen (Esrd)) 10,000 units TuThSa@17 SC Last administered on 16:04; Admin Dose 10,000 UNITS; Start 02/27/17 at 17:00 Morphine Sulfate (morphine) 1 mg Q6H PRN IV PAIN LEVEL 1-5; Start 03/02/17 at 10:00 Enoxaparin Sodium 90 mg 90 mg Q12 SC Last administered on 03/06/17 21:12; Admin Dose 90 MG; Start 03/02/17 at 21:00 Total Parenteral Nutrition 1,000 ml @ 20 mls/hr Q24H IV Last administered on 21:15; Admin Dose 40 MLS/HR; Start 03/02/17 at 17:00 Fat Emulsion Intravenous (Liposyn Ii 20%) 500 ml @ 21 mls/hr [id number] IV Last administered on 03/06/17 17:40; Admin Dose 21 MLS/HR; Start 03/02/17 at 17:00 Famotidine (Pepcid Iv) 20 mg BID IV Last administered on 03/06/17 12:09; Admin Dose 20 MG; Start 03/03/17 at 21:00 Insulin Human NPH (Humulin N) 12 unit BID@08,20 SC Last administered on 09:37; Admin Dose 12 UNIT; Start 03/05/17 at 08:00 Clopidogrel Bisulfate (plaVIX) 75 mg DAILY PO Last administered on 03/06/17 09 :35; Admin Dose 75 MG; Start 03/05/17 at 17:00 Metoprolol Tartrate (Lopressor) 12.5 mg BID PO Last administered on 8/31/17at 09:34; Admin Dose 12.5 MG; Start 03/05/17 at 17:00 Miscellaneous Information (*Rx Drug Level Order Reminder*) 1 ONCE ONCE XX ; Start 03/07/17 at 05:00; Stop 03/07/17 at 05:01 GILBERTO MONTALVO Mar 06, 2017 21:40
[2017-03-07] VITALS (11 sets, daily range): BP systolic 90–159; BP diastolic 55–70; PULSE 85–96; RESP 18–19
[2017-03-07] MEDS: ACCU-CHEK XX SCH (02:00)
[2017-03-07] MEDS: MEROPENEM 1 GM/50ML(PMX) 50 ML IVPB SCH ×3 (05:57→21:55)
[2017-03-07 07:07] LABS: CREATININE 0.72 mg/dl (0.44-1.00); MAGNESIUM 2.1 mg/dl (1.7-2.5); PHOSPHORUS 4.3 mg/dl (2.5-4.9); POTASSIUM 4.6 mmol/L (3.5-5.1)
[2017-03-07] MEDS: ALBUTEROL/IPRATROPIUM (NEB) 3 ML AMP HHN SCH ×3 (07:54→19:54)
[2017-03-07] MEDS: INSULIN ASPART [NOVOLOG] 3 ML PEN SC SCH ×4 (08:00→21:00)
[2017-03-07] MEDS: CLOPIDOGREL 75 MG TAB PO SCH (09:41)
[2017-03-07] MEDS: METOPROLOL 25 MG TAB PO SCH ×2 (09:42→21:56)
[2017-03-07] MEDS: FAMOTIDINE 20 MG INJ IV SCH ×2 (09:43→21:56)
[2017-03-07] MEDS: ENOXAPARIN 100 MG/ML SYG SC SCH ×2 (09:43→21:57)
[2017-03-07] MEDS: NPH, HUMAN INSULIN ISOPHANE 3ML VIAL SC SCH ×2 (09:53→21:59)
--- NOTE | 2017-03-07 10:19 | CONS ---
Date/Time of Note Date/Time of Note DATE: 03/07/17 TIME: 10:15 Assessment/Plan Assessment/Plan Additional Assessment/Plan 1. Renal fx remains stable 2. DVT right lower extrem, on lovenox 3. Biliary drainage in place with now blood noted 4. Gastric perf drain in place. 5. G tube and jejunal tube in place, proceeding with J tube feeding 6. Anemia is stable Consultation Date/Type/Reason Admit Date/Time Feb 26, 2017 at 13:57 Initial Consult Date 02/27/17 Type of Consultation: cardiology Referring Provider: SHAMA LOPEZ MD Detailed Summary Respiratory: No shortness of breath Cardiovascular: No chest pain, No lightheadedness Gastrointestinal: no complaints Exam/Review of Systems Vital Signs Vitals Vital Signs Date Time Temp Pulse Resp B/P Pulse Ox O2 Delivery O2 Flow Rate FiO2 03/07/17 08:25 95 03/07/17 07:52 18 97 Nasal Cannula 3.0 03/07/17 07:40 98.6 159/70 03/06/17 20:45 28 Intake and Output 03/06/17 03/06/17 03/07/17 15:00 23:00 07:00 Intake Total 1162 ml 450 ml Output Total 700 ml Balance 462 ml 450 ml Exam Neck: No jvd Respiratory: diminished breath sounds Cardiovascular: regular rate and rhythm Gastrointestinal: soft Extremities: No edema (moderate sacral edema) Results Result Diagram: 03/06/17 1320 03/07/17 0518 Results 24 hrs Laboratory Tests Test 03/06/17 12:14 03/06/17 13:20 03/06/17 17:12 03/06/17 20:57 Bedside Glucose 195 128 112 White Blood Count 11.6 H Red Blood Count 3.41 L Hemoglobin 9.4 L Hematocrit 31.7 L Mean Corpuscular Volume 93.0 Mean Corpuscular Hemoglobin 27.6 L Mean Corpuscular Hemoglobin Concent 29.7 L Red Cell Distribution Width 16.9 H Platelet Count 522 H Mean Platelet Volume 9.8 Neutrophils % 66.6 Lymphocytes % 13.1 L Monocytes % 6.0 Eosinophils % 8.4 H Basophils % 0.8 Nucleated Red Blood Cells % 0.4 H Neutrophils # (Manual) 7.7 H Lymphocytes # 1.5 Monocytes # 0.7 Eosinophils # 1.0 H Basophils # 0.1 Nucleated Red Blood Cells # 0.1 H Sodium Level 137 Potassium Level 4.6 Chloride Level 101 Carbon Dioxide Level 25 Anion Gap 16 Blood Urea Nitrogen 45 H Creatinine 0.73 Glucose Level 175 Calcium Level 9.0 Magnesium Level 2.1 Albumin 2.1 L Test 03/07/17 02:47 03/07/17 05:18 03/07/17 07:56 Bedside Glucose 81 90 Sodium Level 137 Potassium Level 4.6 Chloride Level 106 Carbon Dioxide Level 24 Anion Gap 12 Blood Urea Nitrogen 44 H Creatinine 0.72 Glucose Level 66 #L Calcium Level 9.0 Phosphorus Level 4.3 Magnesium Level 2.1 Random Vancomycin Level 12.8 Medications Medications Current Medications Ondansetron HCl (Zofran Inj) 4 mg Q6H PRN IV NAUSEA AND/OR VOMITING; Start at 16:00 Miscellaneous Information 1 ea NOTE XX ; Start 02/26/17 at 21:00 Glucose (Glutose) 15 gm Q15M PRN PO DECREASED GLUCOSE; Start 02/26/17 at 21:00 Glucose (Glutose) 22.5 gm Q15M PRN PO DECREASED GLUCOSE; Start 02/26/17 at 21: 00 Dextrose (D50w Syringe) 25 ml Q15M PRN IV DECREASED GLUCOSE; Start 02/26/17 at 21:00 Dextrose (D50w Syringe) 50 ml Q15M PRN IV DECREASED GLUCOSE; Start 02/26/17 at 21:00 Glucagon (Glucagen) 1 mg Q15M PRN IM DECREASED GLUCOSE; Start 02/26/17 at 21:00 Glucose (Glutose) 15 gm Q15M PRN BUCCAL DECREASED GLUCOSE; Start 02/26/17 at 21 :00 Miscellaneous Information This patient le... PRN PRN XX WOUND CARE; Start 02/27 at 03:30 Meropenem/Sodium Chloride (Merrem 1 Gm/50 ml (Pmx)) 50 ml @ 100 mls/hr Q8 IVPB Last administered on 03/07/17 05:57; Admin Dose 100 MLS/HR; Start 02/27/17 at 14:00 Diagnostic Test (Pha) (Accu-Chek) 1 ea 02 XX Last administered on 03/06/17 02: 20; Admin Dose 1 EA; Start 02/28/17 at 02:00 Epoetin Raj (Epogen (Esrd)) 10,000 units TuThSa@17 SC Last administered on 16:04; Admin Dose 10,000 UNITS; Start 02/27/17 at 17:00 Morphine Sulfate (morphine) 1 mg Q6H PRN IV PAIN LEVEL 1-5; Start 03/02/17 at 10:00 Enoxaparin Sodium 90 mg 90 mg Q12 SC Last administered on 03/07/17 09:43; Admin Dose 90 MG; Start 03/02/17 at 21:00 Total Parenteral Nutrition 1,000 ml @ 20 mls/hr Q24H IV Last administered on 21:15; Admin Dose 40 MLS/HR; Start 03/02/17 at 17:00 Fat Emulsion Intravenous (Liposyn Ii 20%) 500 ml @ 21 mls/hr [id number] IV Last administered on 03/06/17 17:40; Admin Dose 21 MLS/HR; Start 03/02/17 at 17:00 Famotidine (Pepcid Iv) 20 mg BID IV Last administered on 03/07/17 09:43; Admin Dose 20 MG; Start 03/03/17 at 21:00 Insulin Human NPH (Humulin N) 12 unit BID@08,20 SC Last administered on 09:53; Admin Dose 12 UNIT; Start 03/05/17 at 08:00 Clopidogrel Bisulfate (plaVIX) 75 mg DAILY PO Last administered on 03/07/17 09: 41; Admin Dose 75 MG; Start 03/05/17 at 17:00 Metoprolol Tartrate (Lopressor) 12.5 mg BID PO Last administered on 03/07/17 09 :42; Admin Dose 12.5 MG; Start 03/05/17 at 17:00 FAZAL LAFLEUR MD Mar 07, 2017 10:19
--- NOTE | 2017-03-07 11:47 | CONS ---
Date/Time of Note Date/Time of Note DATE: 03/07/17 TIME: 11:45 Assessment/Plan Assessment/Plan Chief Complaint/Hosp Course 1) UTI, kleb +ESBL in urine change zosyn to merrem await final report on urine cx 02/28 - kleb +ESBL present in urine cx continue with merrem 2) hx of choleycystitis on CT the gall bladder looks ok re-consult dr. hernandes to see if drainage tube can be removed 03/01 - await removal of gall bladder drain 03/03 - Dr. Hernandes to eval for possible removal of GB drainage cath 03/05 - new biliary drain placed but no drainage from it ok for d/c of drain from ID perspective 03/07 - 10cc of drainage in last 24 hours 3) abd wall fluid collection this tracks down to the pelvis and likely emanates from the g-tube will order CT abd with oral contrast via the PEG cx from around the g-tube pt may need surgical intervention for this will consider WBC scan continue with vanco/merrem get nasal swab for MRSA 02/28 - pt to get fluid collection surgically drained when she is medically cleared continue with vanco/merrem 03/01 - drain was placed for abd wall abscess and is draining tube feed looking fluid await d/c of PEG and replacement await culture results, continue with vanco/merrem 03/02 - drainage has MRSA and kleb +ESBL from abd wall continue with vanco/merrem not sure that pig tail cath will be able to drain all of this but a fair amount is coming out told nurse to get strict output on drainage consider swallow eval to see if pt still needs a g-tube 828 - still draining a significant amount of fluid and abd to RLQ is softening up drainage alone may be sufficient continue with vanco/merrem till the drain is out 03/05 - still draining well, pt has new GJ-tube in place when drainage is less than 15cc in 24 hours will re-image to see if it can come out or needs to be re-positioned on vanco/merrem 03/07 - 150cc of drainage in last 24 hours maintain vanco/merrem till drain is out 4) CAD hx of CABG 5) hx of anoxic encephalopathy 02/28 - pt is back to baseline Problems: Consultation Date/Type/Reason Admit Date/Time Feb 26, 2017 at 13:57 Initial Consult Date 02/27/17 Type of Consultation: ID Referring Provider: SHAMA LOPEZ MD 24 HR Interval Summary Free Text/Dictation no new problems tolerating j-tube feeds still with drainage from abd abscess Exam/Review of Systems Vital Signs Vitals Vital Signs Date Time Temp Pulse Resp B/P Pulse Ox O2 Delivery O2 Flow Rate FiO2 03/07/17 08:25 95 03/07/17 07:52 18 97 Nasal Cannula 3.0 03/07/17 07:40 98.6 159/70 03/06/17 20:45 28 Intake and Output 03/06/17 03/06/17 03/07/17 15:00 23:00 07:00 Intake Total 1162 ml 450 ml Output Total 700 ml Balance 462 ml 450 ml Exam Constitutional: alert Eyes: nl sclera Respiratory: clear to auscultation Cardiovascular: regular rate and rhythm Gastrointestinal: non-tender, other (no drainage around gj-tube site), soft Results Result Diagram: 03/06/17 1320 03/07/17 0518 Results 24 hrs Laboratory Tests Test 03/06/17 12:14 03/06/17 13:20 03/06/17 17:12 03/06/17 20:57 Bedside Glucose 195 128 112 White Blood Count 11.6 H Red Blood Count 3.41 L Hemoglobin 9.4 L Hematocrit 31.7 L Mean Corpuscular Volume 93.0 Mean Corpuscular Hemoglobin 27.6 L Mean Corpuscular Hemoglobin Concent 29.7 L Red Cell Distribution Width 16.9 H Platelet Count 522 H Mean Platelet Volume 9.8 Neutrophils % 66.6 Lymphocytes % 13.1 L Monocytes % 6.0 Eosinophils % 8.4 H Basophils % 0.8 Nucleated Red Blood Cells % 0.4 H Neutrophils # (Manual) 7.7 H Lymphocytes # 1.5 Monocytes # 0.7 Eosinophils # 1.0 H Basophils # 0.1 Nucleated Red Blood Cells # 0.1 H Sodium Level 137 Potassium Level 4.6 Chloride Level 101 Carbon Dioxide Level 25 Anion Gap 16 Blood Urea Nitrogen 45 H Creatinine 0.73 Glucose Level 175 Calcium Level 9.0 Magnesium Level 2.1 Albumin 2.1 L Test 03/07/17 02:47 03/07/17 05:18 03/07/17 07:56 Bedside Glucose 81 90 Sodium Level 137 Potassium Level 4.6 Chloride Level 106 Carbon Dioxide Level 24 Anion Gap 12 Blood Urea Nitrogen 44 H Creatinine 0.72 Glucose Level 66 #L Calcium Level 9.0 Phosphorus Level 4.3 Magnesium Level 2.1 Random Vancomycin Level 12.8 Medications Medications Current Medications Ondansetron HCl (Zofran Inj) 4 mg Q6H PRN IV NAUSEA AND/OR VOMITING; Start at 16:00 Miscellaneous Information 1 ea NOTE XX ; Start 02/26/17 at 21:00 Glucose (Glutose) 15 gm Q15M PRN PO DECREASED GLUCOSE; Start 02/26/17 at 21:00 Glucose (Glutose) 22.5 gm Q15M PRN PO DECREASED GLUCOSE; Start 02/26/17 at 21: 00 Dextrose (D50w Syringe) 25 ml Q15M PRN IV DECREASED GLUCOSE; Start 02/26/17 at 21:00 Dextrose (D50w Syringe) 50 ml Q15M PRN IV DECREASED GLUCOSE; Start 02/26/17 at 21:00 Glucagon (Glucagen) 1 mg Q15M PRN IM DECREASED GLUCOSE; Start 02/26/17 at 21:00 Glucose (Glutose) 15 gm Q15M PRN BUCCAL DECREASED GLUCOSE; Start 02/26/17 at 21 :00 Miscellaneous Information This patient le... PRN PRN XX WOUND CARE; Start 02/27 at 03:30 Meropenem/Sodium Chloride (Merrem 1 Gm/50 ml (Pmx)) 50 ml @ 100 mls/hr Q8 IVPB Last administered on 03/07/17 05:57; Admin Dose 100 MLS/HR; Start 02/27/17 at 14:00 Diagnostic Test (Pha) (Accu-Chek) 1 ea 02 XX Last administered on 03/06/17 02: 20; Admin Dose 1 EA; Start 02/28/17 at 02:00 Epoetin Raj (Epogen (Esrd)) 10,000 units TuThSa@17 SC Last administered on 16:04; Admin Dose 10,000 UNITS; Start 02/27/17 at 17:00 Morphine Sulfate (morphine) 1 mg Q6H PRN IV PAIN LEVEL 1-5; Start 03/02/17 at 10:00 Enoxaparin Sodium (Lovenox) 90 mg Q12 SC Last administered on 03/07/17 09:43; Admin Dose 90 MG; Start 03/02/17 at 21:00 Famotidine (Pepcid Iv) 20 mg BID IV Last administered on 03/07/17 09:43; Admin Dose 20 MG; Start 03/03/17 at 21:00 Insulin Human NPH (Humulin N) 12 unit BID@08,20 SC Last administered on 09:53; Admin Dose 12 UNIT; Start 03/05/17 at 08:00 Clopidogrel Bisulfate (plaVIX) 75 mg DAILY PO Last administered on 03/07/17 09: 41; Admin Dose 75 MG; Start 03/05/17 at 17:00 Metoprolol Tartrate (Lopressor) 12.5 mg BID PO Last administered on 03/07/17 09 :42; Admin Dose 12.5 MG; Start 03/05/17 at 17:00 TR GOODEN MD Mar 07, 2017 11:47
[2017-03-07] MEDS ORDERED: VANCOMYCIN 1.5 GM in SOD CHLORIDE 0.9% 250 ML IVPB SCH (13:00)
--- NOTE | 2017-03-07 13:44 | PN ---
Date/Time of Note Date/Time of Note DATE: 03/07/17 TIME: 13:41 Assessment/Plan Lines/Catheters IV Catheter Type (from Nrs): Peripheral IV Rivas in Place (from Nrs): Yes Assessment/Plan Assessment/Plan [facility] Progress Note Date of Service: 03/07/2017 [facility] Today's Assessment & Plan: Overall stable. GB drain slightly ss, likely due to flushing. Will reassess with drain sinogram, as well as surveillance CT that I will order in a couple of days. No indication for acute surgical intervention. Previous assessment that applies today: Due to the complex nature of her clinical picture, I would like to be the only person managing the decisions regarding the drains. The perc GB drain needs to stay for now until patient is well enough to have a lap myron. The abdominal drain needs to stay until the abd wall abscess is completely healed. 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 Even though patient will hopefully be able to tolerate more orals, her nutritional state demands aggressive replacement and for this reason, I recommend we continue the J feeds until patient can demonstrate adequate oral intake. Very important to flush both perc GB drain and the abdominal wall drain with 10 cc NS toward patient TID and keep accurate and strict I's and O's. With above assessment, I've recommended the following for today: 1. Continue current cares 2. Jejunostomy (J) tube feeds at 60 cc/hr and clamp G portion of gastrojejunostomy (GJ) tube; please keep at 60 until patient can tolerate > 50% of her meals 3. Very important: only use the G portion to administer meds into the stomach; do not use the J portion 4. Strict and accurate I's and O's 5. Flush percutaneous cholecystostomy drain on the right side and the abdominal wall drain on the left side with 10 cc NS toward patient TID 6. Advance diet as tolerated by the patient as guided by the swallow test results 7. GB drain sinogram and abd/pelvis non-con CT on Fri Thank you again for your great care of this very pleasant patient and wonderful family. If there are any questions, please feel free to call me at [phone]. Nature of presenting problem: High severity Please note that, given the extensive number of diagnoses or management options , the extensive amount and/or complexity of data needed to be reviewed, and I risk of complications and/or morbidity or mortality, this qualifies as high complexity type of decision-making. Disclaimer: Inadvertent spelling and grammatical errors are likely due to EHR/ dictation software use and do not reflect on the quality of delivered patient care. Also, please note that the electronic time recorded on this node does not necessarily reflect the actual time of the visit. Updated Clinical Summary: A very pleasant 71-year-old lady with multiple comorbid issues including BMI of 35.6 as well as what has been in the hospital since 09/2016 being found unresponsive and multiple issues including congestive heart failure, acute renal failure due to acute tubular necrosis requiring dialysis, urinary tract infection with bacteremia and multiple other issues, who was found to have possible signs of acute cholecystitis on recent imaging. D/c to [facility] ([place] ) 12/25/16. Readmitted to [facility] for abdominal wall pain on the left side on 01/16/2017. Urinary tract infection treated for E. coli. Thoracentesis with removal of approximately 1 L of fluid from her chest 2016. Percutaneous gallbladder drain exchange 01/18/2017. Feeding tube replaced 01/23/2017 by GI (Dr. Helm). Readmitted to [facility] 2016 with abdominal wall abscess. S/p exchange of PEG to GJ and repositioning of a new perc cholecystostomy tube 03/03/17. COMORBIDITIES: 1. BMI of 35.6. 2. Acute renal failure (ATN), on maintenance hemodialysis (Friday, , Friday). 3. Congestive heart failure. 4. Anemia. 5. Hypocalcemia. 6. Hypoalbuminemia and malnutrition. 7. Peripheral vascular disease with gangrene of toes of both feet. 8. Recent history of respiratory failure. 9. History of dysphagia requiring PEG placement and feedings. 10. Diabetes mellitus. 11. Leukocytosis from various sources. 12. Funguria with Erica glabrata and Erica albicans of the urine. 13. Escherichia coli and Enterococcus urinary tract infection 10/29/2016. 14. Escherichia coli bacteremia 12/02/2016 (x2 cultures). 15. Repeat culture of the urine 12/02/2016 with E. coli, enterococcus species and Klebsiella pneumoniae, extended-spectrum beta-lactamase. 16. Repeat bacteremia 12/08/2016 with Escherichia coli. 17. Urine positive for Erica albicans 12/11/2016. 18. Clostridium difficile colitis negative on a few stool samples. 19. Bilateral pleural effusions. 20. 2 mm calcified granuloma in the right lower lobe. 21. CT scan of abdomen and pelvis 12/13/2016 showing large amount of pericholecystic fluid with distention of the gallbladder, which could be of acute cholecystitis. 22. Tumefaction sludge, poorly visualized gallstones or soft tissue masses are suspected within the lumen of the distended gallbladder. 23. Anasarca. 24. Status post splenectomy. 25. A 2.8 cm left parapelvic cyst and an adjacent 1.4 cm simple cyst lateral upper portion of the lower third left kidney noted. 26. Atherosclerotic vascular disease. 27. Osteoarthritis of the thoracic and lumbosacral spine. 28. History of acute ST elevation myocardial infarction, inferior wall, status post code STEMI with stent placement, as well as temporary pacer wire. 29. Hyperlipidemia. 30. Possible aspiration pneumonia. 31. S/p CT-guided percutaneous transhepatic cholecystostomy drain placement 06/22, [facility]. 32. Feeding tube replaced 01/23/2017 by GI (Dr. Helm) at [facility]. 33. S/p exchange of PEG to GJ and repositioning of a new perc cholecystostomy tube [facility] 03/03/17. Subjective: No major events or complaints other than above; no abd pain and under control with medications; no n/v/d; no sob or cp; + flatus; + BM; minimal activity Objective: Vitals: See below I's & O's: See below Exam: GENERAL: On exam, the patient was lying in bed and appeared to be comfortable and in no acute distress. Less energetic today than yesterday. ABDOMEN: Soft, nontender and nondistended. Percutaneous drain with purulent fluid. There are no peritoneal signs or guarding. Perc GB drain with ss output (small); perc L sided drain with purulent output (small amounts) SKIN: Skin appears to be pink and feels warm to touch. NEUROLOGIC: Patient is awake, alert, and follows commands appropriately. Able to speak in slightly higher volume than previously. Labs: See below Exam/Review of Systems Vital Signs Vitals Vital Signs Date Time Temp Pulse Resp B/P Pulse Ox O2 Delivery O2 Flow Rate FiO2 03/07/17 12:14 89 03/07/17 12:02 98.6 18 148/70 92 03/07/17 07:52 Nasal Cannula 3.0 03/06/17 20:45 28 Intake and Output 03/06/17 03/06/17 03/07/17 15:00 23:00 07:00 Intake Total 1162 ml 450 ml Output Total 700 ml Balance 462 ml 450 ml Results Result Diagram: 03/06/17 1320 03/07/17 0518 SHANA ROSARIO M.D. Mar 07, 2017 13:44
--- NOTE | 2017-03-07 18:32 | PN ---
DATE: 03/07/2017 SUBJECTIVE: The patient is without complaint. OBJECTIVE: VITAL SIGNS: Temperature 98.6, pulse 89, respirations 18, blood pressure 148/70, oxygen saturation 92 percent. GENERAL: Well-developed female, in no acute distress, lying in bed. CHEST: Clear to auscultation bilaterally. Decreased breath sounds at bases. HEART: Regular rate and rhythm. ABDOMEN: Drainage in place with small amount of sanguinous fluid. Mild tenderness. Decreased bowel sounds. EXTREMITIES: With 1 plus bilateral lower extremity edema. NEUROLOGIC: Alert and oriented. Otherwise nonfocal. PSYCH: Patient appears depressed. LABORATORY AND DIAGNOSTIC DATA: Sodium 137, potassium 4.6, chloride 106, bicarbonate 24, BUN 44, creatinine 0.72, blood sugar 66, magnesium 2.1, phosphorus 4.3, calcium 9. ASSESSMENT AND PLAN: 1. Abdominal wall abscess, fluid collection, improving but continues to drain. Will continue drainage and antibiotics, and the patient will need repeat CT scan in the near future to evaluate whether or not it could be removed or repositioned. 2. Acute on chronic kidney disease, stable. Continue to monitor. 3. Deep venous thrombosis, right lower extremity, stable. Continue Lovenox. 4. Anemia, stable. Continue to monitor. 5. Diabetes, improved. Will continue medications and adjust as needed. This patient is getting her G-tube feeding increased. 6. Hypertension/coronary artery disease, stable. Continue with medications. 7. Pressure sores, continue wound care as recommended by the wound care nurse and frequent repositioning. Dictated By: Ayaan Simms MD /sari/mark /Document#: [id number]
--- NOTE | 2017-03-07 18:44 | CONS ---
Date/Time of Note Date/Time of Note DATE: 03/07/17 TIME: 18:41 Assessment/Plan Assessment/Plan Chief Complaint/Hosp Course IMP: 1. H/O Stemi inferior s/p PTCA stent to rca 09/2016-preserved EF by echo 01/20 EF 55% 2.DVT RLE-acute on lovenox 3.abdominal wall abscess s/p drain placement 4.s/p G tube 5.Renal failure-resolved 6. CHF-diastolic acute on chronic 7.UTI 8.PAD 9. Cholescytitis s/p biliary drain Recc: -Tele -Continue plavix for stent patency -Follow BP and volume status closely and continue low BB and spot dose lasix as necessary follow renal function closely -Contine lovenox -Continue abx's and f/u cx data -continue feeds thru GJ tube(J port) -follow bilary drainage Problems: Consultation Date/Type/Reason Admit Date/Time Feb 26, 2017 at 13:57 Initial Consult Date 02/27/17 Type of Consultation: cardiology Reason for Consultation h/o stent/RI recently Referring Provider: SHAMA LOPEZ MD Exam/Review of Systems Vital Signs Vitals Vital Signs Date Time Temp Pulse Resp B/P Pulse Ox O2 Delivery O2 Flow Rate FiO2 03/07/17 16:32 85 03/07/17 15:48 98.6 18 111/59 96 03/07/17 14:49 2.0 03/07/17 14:49 Nasal Cannula 03/06/17 20:45 28 Intake and Output 03/06/17 03/06/17 03/07/17 15:00 23:00 07:00 Intake Total 1162 ml 450 ml Output Total 700 ml Balance 462 ml 450 ml Exam Review of Systems: CONSTITUTIONAL: No fevers, chills. PULMONARY: No sob CARDIOVASCULAR: No chest pain/palpitations GASTROINTESTINAL: No nausea/vomiting. GENITOURINARY: No hematuria/dysuria. MUSCULOSKELETAL: No myagias/arthalgias. PSYCHIATRIC: The patient denies depression. NEUROLOGIC: lethargic Constitutional: other (sleeping , arousable) Psych: no complaints Head: normocephalic ENMT: mucosa pink and moist Neck: jvd (9 cm water), supple Respiratory: diminished breath sounds (at bases/B) Cardiovascular: regular rate and rhythm Gastrointestinal: non-tender, other (drain in place), soft Musculoskeletal: muscle weakness (generalized) Extremities: edema (bilateral R>L) Neurological: lethargic Results Result Diagram: 03/06/17 1320 03/07/17 0518 Results 24 hrs Laboratory Tests Test 03/06/17 20:57 03/07/17 02:47 03/07/17 05:18 03/07/17 07:56 Bedside Glucose 112 81 90 Sodium Level 137 Potassium Level 4.6 Chloride Level 106 Carbon Dioxide Level 24 Anion Gap 12 Blood Urea Nitrogen 44 H Creatinine 0.72 Glucose Level 66 #L Calcium Level 9.0 Phosphorus Level 4.3 Magnesium Level 2.1 Random Vancomycin Level 12.8 Test 03/07/17 11:44 03/07/17 17:25 Bedside Glucose 137 136 Medications Medications Current Medications Ondansetron HCl (Zofran Inj) 4 mg Q6H PRN IV NAUSEA AND/OR VOMITING; Start at 16:00 Miscellaneous Information 1 ea NOTE XX ; Start 02/26/17 at 21:00 Glucose (Glutose) 15 gm Q15M PRN PO DECREASED GLUCOSE; Start 02/26/17 at 21:00 Glucose (Glutose) 22.5 gm Q15M PRN PO DECREASED GLUCOSE; Start 02/26/17 at 21: 00 Dextrose (D50w Syringe) 25 ml Q15M PRN IV DECREASED GLUCOSE; Start 02/26/17 at 21:00 Dextrose (D50w Syringe) 50 ml Q15M PRN IV DECREASED GLUCOSE; Start 02/26/17 at 21:00 Glucagon (Glucagen) 1 mg Q15M PRN IM DECREASED GLUCOSE; Start 02/26/17 at 21:00 Glucose (Glutose) 15 gm Q15M PRN BUCCAL DECREASED GLUCOSE; Start 02/26/17 at 21 :00 Miscellaneous Information This patient le... PRN PRN XX WOUND CARE; Start 02/27 at 03:30 Meropenem/Sodium Chloride (Merrem 1 Gm/50 ml (Pmx)) 50 ml @ 100 mls/hr Q8 IVPB Last administered on 03/07/17 14:33; Admin Dose 100 MLS/HR; Start 02/27/17 at 14:00 Diagnostic Test (Pha) (Accu-Chek) 1 ea 02 XX Last administered on 03/06/17 02: 20; Admin Dose 1 EA; Start 02/28/17 at 02:00 Epoetin Raj (Epogen (Esrd)) 10,000 units TuThSa@17 SC Last administered on 16:04; Admin Dose 10,000 UNITS; Start 02/27/17 at 17:00 Morphine Sulfate (morphine) 1 mg Q6H PRN IV PAIN LEVEL 1-5; Start 03/02/17 at 10:00 Enoxaparin Sodium (Lovenox) 90 mg Q12 SC Last administered on 03/07/17 09:43; Admin Dose 90 MG; Start 03/02/17 at 21:00 Famotidine (Pepcid Iv) 20 mg BID IV Last administered on 03/07/17 09:43; Admin Dose 20 MG; Start 03/03/17 at 21:00 Insulin Human NPH (Humulin N) 12 unit BID@08,20 SC Last administered on 09:53; Admin Dose 12 UNIT; Start 03/05/17 at 08:00 Clopidogrel Bisulfate (plaVIX) 75 mg DAILY PO Last administered on 03/07/17 09: 41; Admin Dose 75 MG; Start 03/05/17 at 17:00 Metoprolol Tartrate 12.5 mg 12.5 mg BID PO Last administered on 03/07/17 09:42 ; Admin Dose 12.5 MG; Start 03/05/17 at 17:00 Vancomycin HCl/ Sodium Chloride (Vancocin/NS) 250 ml @ 83.333 mls/ hr Q72H IVPB Last administered on 03/07/17 14:31; Admin Dose 83.333 MLS/HR; Start at 13:00 Collagenase (Santyl) 1 applic DAILY TOP ; Start 03/08/17 at 09:00 GILBERTO MONTALVO Mar 07, 2017 18:44
[2017-03-08] VITALS (23 sets, daily range): BP systolic 66–131; BP diastolic 31–61; PULSE 76–105; RESP 15–26
[2017-03-08] MEDS: ACCU-CHEK XX SCH (02:00)
[2017-03-08] MEDS: MEROPENEM 1 GM/50ML(PMX) 50 ML IVPB SCH ×3 (05:00→22:05)
[2017-03-08] MEDS: ALBUTEROL/IPRATROPIUM (NEB) 3 ML AMP HHN SCH ×3 (07:33→20:37)
[2017-03-08 07:40] LABS: BASOPHILS % 0.3 % (0.0-2.0); EOSINOPHILS # 0.7 10^3/ul (0.0-0.5); HEMATOCRIT 28.3 % (37.0-47.0); HEMOGLOBIN 8.4 g/dl (12.0-16.0); LYMPHOCYTES # 1.3 10^3/ul (0.8-2.9); LYMPHOCYTES % 10.6 % (15.0-51.0); MEAN CORPUSCULAR HEMOGLOBIN 27.6 pg (29.0-33.0); MEAN CORPUSCULAR HGB CONC 29.7 g/dl (32.0-37.0); MEAN CORPUSCULAR VOLUME 93.1 fl (82.0-101.0); MEAN PLATELET VOLUME 9.4 fl (7.4-10.4); MONOCYTE # 0.6 10^3/ul (0.3-0.9); MONOCYTES % 5.1 % (0.0-11.0); NEUTROPHILS % 73.5 % (39.0-77.0); NUCLEATED RED BLOOD CELLS% 0.2 /100WBC (0.0-0.0); PLATELET COUNT 427 10^3/UL (140-415); RED BLOOD COUNT 3.04 10^6/ul (4.20-5.40); RED CELL DISTRIBUTION WIDTH 17.2 % (11.5-14.5); WHITE BLOOD COUNT 12.4 10^3/ul (4.8-10.8)
[2017-03-08 08:03] LABS: CALCIUM 8.6 mg/dl (8.4-10.2); CREATININE 0.68 mg/dl (0.44-1.00); MAGNESIUM 2.1 mg/dl (1.7-2.5); PHOSPHORUS 4.5 mg/dl (2.5-4.9); POTASSIUM 4.8 mmol/L (3.5-5.1)
[2017-03-08] MEDS ORDERED: COLLAGENASE 30 GM TUBE TOP SCH (09:00)
[2017-03-08] MEDS: NPH, HUMAN INSULIN ISOPHANE 3ML VIAL SC SCH ×2 (09:07→20:59)
[2017-03-08] MEDS: INSULIN ASPART [NOVOLOG] 3 ML PEN SC SCH ×4 (09:09→20:48)
[2017-03-08] MEDS: FAMOTIDINE 20 MG INJ IV SCH ×2 (10:19→20:56)
[2017-03-08] MEDS: CLOPIDOGREL 75 MG TAB PO SCH (10:19)
[2017-03-08] MEDS: METOPROLOL 25 MG TAB PO SCH ×2 (10:20→20:48)
[2017-03-08] MEDS: ENOXAPARIN 100 MG/ML SYG SC SCH ×2 (11:08→20:58)
--- NOTE | 2017-03-08 13:33 | CONS ---
Date/Time of Note Date/Time of Note DATE: 03/08/17 TIME: 13:29 Assessment/Plan Assessment/Plan Chief Complaint/Hosp Course 1. Acute Renal Failure. Renal function continues to improve, good UOP 2. Abdominal abscess , LUQ . She has a drainage tube in place . 3. ASHD , h/o cardiac arrest and acute MA in September 2016 . 4. DM, on insulin 5. h/o CKD. Off dialysis now 6. anemia, on KELSEY 7. UTI with ESBL E. coli 8. h/o acute cholecystitis with cholecystotomy tube monitored by surgery 9. malnourished, on tube feeding Problems: Consultation Date/Type/Reason Admit Date/Time Feb 26, 2017 at 13:57 Initial Consult Date 02/27/17 Type of Consultation: Nephrology Referring Provider: SHAMA LOPEZ MD 24 HR Interval Summary Free Text/Dictation Lethargic this am, at bedside. Exam/Review of Systems Vital Signs Vitals Vital Signs Date Time Temp Pulse Resp B/P Pulse Ox O2 Delivery O2 Flow Rate FiO2 03/08/17 12:11 87 03/08/17 11:54 98.9 18 117/56 96 03/08/17 01:27 2.0 03/07/17 23:11 Nasal Cannula 03/06/17 20:45 28 Intake and Output 03/07/17 03/07/17 03/08/17 14:59 22:59 06:59 Intake Total 400 ml 800 ml 760 ml Output Total 750 ml 650 ml Balance 400 ml 50 ml 110 ml Exam Constitutional: non-verbal Head: atraumatic, normocephalic Neck: No jvd Respiratory: clear to auscultation Cardiovascular: regular rate and rhythm Gastrointestinal: distended Extremities: edema Results Result Diagram: 03/08/17 0726 03/08/17 0726 Results 24 hrs Laboratory Tests Test 03/07/17 17:25 03/07/17 21:55 03/08/17 02:36 03/08/17 07:26 Bedside Glucose 136 140 141 White Blood Count 12.4 H Red Blood Count 3.04 L Hemoglobin 8.4 L Hematocrit 28.3 L Mean Corpuscular Volume 93.1 Mean Corpuscular Hemoglobin 27.6 L Mean Corpuscular Hemoglobin Concent 29.7 L Red Cell Distribution Width 17.2 H Platelet Count 427 H Mean Platelet Volume 9.4 Neutrophils % 73.5 Lymphocytes % 10.6 L Monocytes % 5.1 Eosinophils % 6.0 Basophils % 0.3 Nucleated Red Blood Cells % 0.2 H Neutrophils # (Manual) 9.1 H Lymphocytes # 1.3 Monocytes # 0.6 Eosinophils # 0.7 H Basophils # 0.0 Nucleated Red Blood Cells # 0.0 Sodium Level 135 Potassium Level 4.8 Chloride Level 106 Carbon Dioxide Level 24 Anion Gap 10 Blood Urea Nitrogen 42 H Creatinine 0.68 Glucose Level 156 Calcium Level 8.6 Phosphorus Level 4.5 Magnesium Level 2.1 Test 03/08/17 08:19 03/08/17 13:09 Bedside Glucose 169 138 Medications Medications Current Medications Ondansetron HCl (Zofran Inj) 4 mg Q6H PRN IV NAUSEA AND/OR VOMITING Last administered on 03/08/17 08:01; Admin Dose 4 MG; Start 02/26/17 at 16:00 Miscellaneous Information 1 ea NOTE XX ; Start 02/26/17 at 21:00 Glucose (Glutose) 15 gm Q15M PRN PO DECREASED GLUCOSE; Start 02/26/17 at 21:00 Glucose (Glutose) 22.5 gm Q15M PRN PO DECREASED GLUCOSE; Start 02/26/17 at 21: 00 Dextrose (D50w Syringe) 25 ml Q15M PRN IV DECREASED GLUCOSE; Start 02/26/17 at 21:00 Dextrose (D50w Syringe) 50 ml Q15M PRN IV DECREASED GLUCOSE; Start 02/26/17 at 21:00 Glucagon (Glucagen) 1 mg Q15M PRN IM DECREASED GLUCOSE; Start 02/26/17 at 21:00 Glucose (Glutose) 15 gm Q15M PRN BUCCAL DECREASED GLUCOSE; Start 02/26/17 at 21 :00 Miscellaneous Information This patient le... PRN PRN XX WOUND CARE; Start 02/27 at 03:30 Meropenem/Sodium Chloride (Merrem 1 Gm/50 ml (Pmx)) 50 ml @ 100 mls/hr Q8 IVPB Last administered on 03/08/17 05:00; Admin Dose 100 MLS/HR; Start 02/27/17 at 14:00 Diagnostic Test (Pha) (Accu-Chek) 1 ea 02 XX Last administered on 03/06/17 02: 20; Admin Dose 1 EA; Start 02/28/17 at 02:00 Epoetin Raj (Epogen (Esrd)) 10,000 units TuThSa@17 SC Last administered on 16:04; Admin Dose 10,000 UNITS; Start 02/27/17 at 17:00 Morphine Sulfate (morphine) 1 mg Q6H PRN IV PAIN LEVEL 1-5 Last administered on 03/08/17 08:12; Admin Dose 1 MG; Start 03/02/17 at 10:00 Enoxaparin Sodium (Lovenox) 90 mg Q12 SC Last administered on 03/08/17 11:08; Admin Dose 90 MG; Start 03/02/17 at 21:00 Famotidine (Pepcid Iv) 20 mg BID IV Last administered on 03/08/17 10:19; Admin Dose 20 MG; Start 03/03/17 at 21:00 Insulin Human NPH (Humulin N) 12 unit BID@08,20 SC Last administered on 09:07; Admin Dose 12 UNIT; Start 03/05/17 at 08:00 Clopidogrel Bisulfate (plaVIX) 75 mg DAILY PO Last administered on 03/08/17 10: 19; Admin Dose 75 MG; Start 03/05/17 at 17:00 Metoprolol Tartrate 12.5 mg 12.5 mg BID PO Last administered on 03/08/17 10:20 ; Admin Dose 12.5 MG; Start 03/05/17 at 17:00 Vancomycin HCl/ Sodium Chloride (Vancocin/NS) 250 ml @ 83.333 mls/ hr Q72H IVPB Last administered on 03/07/17 14:31; Admin Dose 83.333 MLS/HR; Start at 13:00 Collagenase (Santyl) 1 applic DAILY TOP Last administered on 03/08/17 10:19; Admin Dose 1 APPLIC; Start 03/08/17 at 09:00 SHAW LY MD Mar 08, 2017 13:33
--- NOTE | 2017-03-08 15:05 | PN ---
Date/Time of Note Date/Time of Note DATE: 03/08/17 TIME: 15:01 Assessment/Plan Lines/Catheters IV Catheter Type (from Nrsg): Peripheral IV Rivas in Place (from Nrs): Yes Assessment/Plan Assessment/Plan [facility] Progress Note Date of Service: 03/08/2017 [facility] Assessment & Plan: Overall stable. GB drain slightly ss, likely due to flushing. A bit more mid abdominal pain. Will order surveillance CT for today. No indication for acute surgical intervention. Previous assessment that applies today: Due to the complex nature of her clinical picture, I would like to be the only person managing the decisions regarding the drains. The perc GB drain needs to stay for now until patient is well enough to have a lap myron. The abdominal drain needs to stay until the abd wall abscess is completely healed. 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 Even though patient will hopefully be able to tolerate more orals, her nutritional state demands aggressive replacement and for this reason, I recommend we continue the J feeds until patient can demonstrate adequate oral intake. Very important to flush both perc GB drain and the abdominal wall drain with 10 cc NS toward patient TID and keep accurate and strict I's and O's. With above assessment, I've recommended the following for today: 1. Continue current cares 2. Jejunostomy (J) tube feeds at 60 cc/hr and clamp G portion of gastrojejunostomy (GJ) tube; please keep at 60 until patient can tolerate > 50% of her meals 3. Very important: only use the G portion to administer meds into the stomach; do not use the J portion 4. Strict and accurate I's and O's 5. Flush percutaneous cholecystostomy drain on the right side and the abdominal wall drain on the left side with 10 cc NS toward patient TID 6. Advance diet as tolerated by the patient as guided by the swallow test results 7. Abd/pelvis non-con CT today 8. GB drain sinogram and on Tue Thank you again for your great care of this very pleasant patient and wonderful family. If there are any questions, please feel free to call me at [phone]. Nature of presenting problem: High severity Please note that, given the extensive number of diagnoses or management options , the extensive amount and/or complexity of data needed to be reviewed, and I risk of complications and/or morbidity or mortality, this qualifies as high complexity type of decision-making. Disclaimer: Inadvertent spelling and grammatical errors are likely due to EHR/ dictation software use and do not reflect on the quality of delivered patient care. Also, please note that the electronic time recorded on this node does not necessarily reflect the actual time of the visit. Updated Clinical Summary: A very pleasant 71-year-old lady with multiple comorbid issues including BMI of 35.6 as well as what has been in the hospital since 09/2016 being found unresponsive and multiple issues including congestive heart failure, acute renal failure due to acute tubular necrosis requiring dialysis, urinary tract infection with bacteremia and multiple other issues, who was found to have possible signs of acute cholecystitis on recent imaging. D/c to [facility] ([place] ) 12/25/16. Readmitted to [facility] for abdominal wall pain on the left side on 01/16/2017. Urinary tract infection treated for E. coli. Thoracentesis with removal of approximately 1 L of fluid from her chest 2016. Percutaneous gallbladder drain exchange 01/18/2017. Feeding tube replaced 01/23/2017 by GI (Dr. Helm). Readmitted to [facility] 2016 with abdominal wall abscess. S/p exchange of PEG to GJ and repositioning of a new perc cholecystostomy tube 03/03/17. COMORBIDITIES: 1. BMI of 35.6. 2. Acute renal failure (ATN), on maintenance hemodialysis (Friday, , Friday). 3. Congestive heart failure. 4. Anemia. 5. Hypocalcemia. 6. Hypoalbuminemia and malnutrition. 7. Peripheral vascular disease with gangrene of toes of both feet. 8. Recent history of respiratory failure. 9. History of dysphagia requiring PEG placement and feedings. 10. Diabetes mellitus. 11. Leukocytosis from various sources. 12. Funguria with Erica glabrata and Erica albicans of the urine. 13. Escherichia coli and Enterococcus urinary tract infection 10/29/2016. 14. Escherichia coli bacteremia 12/02/2016 (x2 cultures). 15. Repeat culture of the urine 12/02/2016 with E. coli, enterococcus species and Klebsiella pneumoniae, extended-spectrum beta-lactamase. 16. Repeat bacteremia 12/08/2016 with Escherichia coli. 17. Urine positive for Erica albicans 12/11/2016. 18. Clostridium difficile colitis negative on a few stool samples. 19. Bilateral pleural effusions. 20. 2 mm calcified granuloma in the right lower lobe. 21. CT scan of abdomen and pelvis 12/13/2016 showing large amount of pericholecystic fluid with distention of the gallbladder, which could be of acute cholecystitis. 22. Tumefaction sludge, poorly visualized gallstones or soft tissue masses are suspected within the lumen of the distended gallbladder. 23. Anasarca. 24. Status post splenectomy. 25. A 2.8 cm left parapelvic cyst and an adjacent 1.4 cm simple cyst lateral upper portion of the lower third left kidney noted. 26. Atherosclerotic vascular disease. 27. Osteoarthritis of the thoracic and lumbosacral spine. 28. History of acute ST elevation myocardial infarction, inferior wall, status post code STEMI with stent placement, as well as temporary pacer wire. 29. Hyperlipidemia. 30. Possible aspiration pneumonia. 31. S/p CT-guided percutaneous transhepatic cholecystostomy drain placement 06/22, [facility]. 32. Feeding tube replaced 01/23/2017 by GI (Dr. Helm) at [facility]. 33. S/p exchange of PEG to GJ and repositioning of a new perc cholecystostomy tube [facility] 03/03/17. Subjective: No major events or complaints other than above; mild mid abd pain and under control with medications; no n/v/d; no sob or cp; + flatus; + BM; minimal activity Objective: Vitals: See below I's & O's: See below Exam: GENERAL: On exam, the patient was lying in bed and appeared to be comfortable and in no acute distress. Less energetic today than yesterday. ABDOMEN: Soft, nontender and nondistended. Percutaneous drain with purulent fluid. There are no peritoneal signs or guarding. Perc GB drain with ss output (small); perc L sided drain with purulent output (small amounts) SKIN: Skin appears to be pink and feels warm to touch. NEUROLOGIC: Patient is awake, alert, and follows commands appropriately. Able to speak in slightly higher volume than yesterday and more energetic. Labs: See below Exam/Review of Systems Vital Signs Vitals Vital Signs Date Time Temp Pulse Resp B/P Pulse Ox O2 Delivery O2 Flow Rate FiO2 03/08/17 13:16 99 2.0 03/08/17 13:16 80 18 Nasal Cannula 03/08/17 11:54 98.9 117/56 03/06/17 20:45 28 Intake and Output 03/07/17 03/07/17 03/08/17 15:00 23:00 07:00 Intake Total 800 ml 760 ml Output Total 750 ml 650 ml Balance 50 ml 110 ml Results Result Diagram: 03/08/17 0726 03/08/17 0726 SHANA ROSARIO M.D. Mar 08, 2017 15:05
[2017-03-08] MEDS: EPOETIN 10000 UNITS/1 ML INJ (ESRD) SC SCH (18:04)
[2017-03-08] MEDS ORDERED: SOD CHLORIDE 0.9% 1,000 ML IV ONE (21:30)
[2017-03-08] MEDS ORDERED: ALBUMIN HUMAN 25% 100 ML IV ONE (21:30)
[2017-03-08] MEDS ORDERED: NORepinephrine 8MG/250 ML (PMX 250 ML IV SCH ×2 (22:00→23:15)
--- NOTE | 2017-03-08 23:20 | PN ---
DATE: 03/08/2017 SUBJECTIVE DATA: Patient complains of some abdominal pain, mild shortness of breath. No chest pain. OBJECTIVE: VITAL SIGNS: Blood pressure in the 60s and 70s. Oxygen saturation 100 percent on 2 L. Temperature 98.6. Respirations 24-28. GENERAL: Well-developed, well-nourished female, has mild respiratory distress, lying in bed. SKIN: Mild pallor. CHEST: Clear to auscultation. HEART: Regular rate and rhythm. ABDOMEN: Soft. Mild diffuse tenderness. NEUROLOGIC: Nonfocal. EXTREMITIES: Edematous. LABS: Sodium 135, potassium 4.8, chloride 106, bicarbonate 24, BUN of 42, creatinine 0.68, glucose of 156, phosphorus 4.5, magnesium 2.1. Hemoglobin 8.4, hematocrit 28.3, platelets 427, white blood cell count 12.4. ASSESSMENT AND PLAN: 1. Hypotension. The patient had persistent hypotension all day and no response to intravenous normal saline infusion. Patient to get some albumin at this time. Patient unstable for med/surg floor on telemetry. We will transfer to intensive care unit for further evaluation and treatment. Patient will likely need Levophed and we will titrate to keep blood pressure over 90. Pt's condition is guarded and pt and family aware. Will have Cardiology made aware of condition to assist with treatment. 2. Diabetes, stable. Continue with medications, diet and sliding scale. 3. Abdominal wall abscess, stable. Continue with antibiotics and drainage. 4. Deep vein thrombosis, stable. Continue with Lovenox. 5. Anemia, slight decreased from yesterday. We will continue to monitor. 6. Coronary artery disease, stable, but with hypotension. Unclear if patient is having another event. We will check troponin rate. 7. Pressure sores. Continue with wound care as recommended by the wound care nurse. Dictated By: Ayaan Simms MD /sari/joo /Document#: [id number] MAYO
[2017-03-08] MEDS ORDERED: SOD CHLORIDE 0.9% 500 ML IV ONE (23:30)
[2017-03-09] VITALS: BP 98/48; PULSE 105; RESP 20
[2017-03-09] MEDS ORDERED: NA BICARBONATE 8.4% 50 ML SYG ONE
[2017-03-09] MEDS ORDERED: AMIODARONE 150 MG INJ ONE
[2017-03-09] MEDS ORDERED: MAGNESIUM SULFATE 1 GM/100 ML D5W IVPB ONE
[2017-03-09] MEDS ORDERED: LIDOCAINE 2 GM/D5W 500 ML BAG ONE
[2017-03-09] MEDS ORDERED: CA CHLORIDE 10% 10 ML SYRINGE ONE
[2017-03-09] MEDS ORDERED: ATROPINE 1 MG/10 ML SYRINGE ONE
[2017-03-09 00:15] VITALS: BP 89/41; PULSE 107; RESP 23
[2017-03-09] MEDS ORDERED: PHENYLephrine 20MG IN 250 ML 250 ML ONE (00:27)
[2017-03-09 00:30] VITALS: BP 89/41; PULSE 66; RESP 14
[2017-03-09] MEDS ORDERED: PHENYLephrine 20MG IN 250 ML 250 ML IV SCH (00:30)
[2017-03-09] MEDS ORDERED: DOPamine-D5W 1.6 MG/ML 250 ML ONE (00:40)
[2017-03-09 00:45] VITALS: BP 60/23; PULSE 147; RESP 14
[2017-03-09] MEDS ORDERED: EPINEPHrine 0.1 MG/ML SYG ONE ×2 (00:50)
[2017-03-09 01:00] VITALS: BP 155/119
[2017-03-09] MEDS ORDERED: EPINEPHrine 0.1 MG/ML SYG IV ONE (01:00)
[2017-03-09] MEDS ORDERED: DOPamine-D5W 1.6 MG/ML 250 ML IV SCH (01:00)
--- NOTE | 2017-03-09 07:29 | QN ---
Documentation Comment Called to room 108 of ICU for emergent central line and intubation. Patient was just being started on pressors Tyree-Synephrine and Levophed through her Maninder line. She coded after entering the room and CODE BLUE was called as well. ET intubation note: Preoxygenated with bag mask ventilation, RSI was used with 20 mill grams of etomidate 100 mg of rocuronium. [place] scope was used to introduce a size 8.0 ET tube through vocalize residual cords using a lighted scope 4 blade. Oxygenation was 100% after the procedure the patient was coding. Tolerated well Central line note, right femoral vein: Sterile technique was used, ultrasound guidance was used to introduce a 7 [place] triple-lumen catheter in the femoral vein. All ports flushed well there was good blood flow. Secured with 2 simple interrupted 3-0 silk sutures. No complications. Patient tolerated well. CPR note: Patient's heart rate was in the low 30s when I entered the room confirmed onto monitors with pacer pads in place. CPR was initiated and epinephrine was given. Patient had no pulses on pulse checks. Multiple rounds of CPR were performed with patient in V. fib then monomorphic V. tach for which patient received shocks a few time she was also given amiodarone 300 mg as well as lidocaine 100 mg, sodium bicarbonate was given 3 times throughout the code, she is also given calcium chloride. I spoke with the family during the code to tell them the prognosis was poor as they were present in ICU. Patient is receiving action oxygenation high quality CPR was continued. Patient never regained pulses. CPR was performed for 40 minutes with time of at 07 28. I performed a limited cardiac ultrasound last pulse check in which patient had no cardiac activity whatsoever. I then went spoke with the family once again to notify the patient's . SANDY GOLDEN DO Mar 09, 2017 07:29
[2017-03-09 08:07] LABS: AADO2 Arterial 517.6 mmHg (7.0-24.0); Allen Test ACCEPTAB; Arterial Base Excess -5.6 mmol/L (-3.0-3); Arterial COHb 0.3 % (0.0-3.0); Arterial Fraction of Oxyhgb 93.1 % (93.0-99.0); Arterial HCO3 24.1 mmol/L (22.0-26.0); Arterial Total Hemglobin 4.8 g/dl (12.0-18.0); MODE MASK - NRB
== END 2017-03-09 01:22 | disposition expired | DRG 871 ==
LOC: E/R 11:24 → MS4 13:57 → ICU 03-08 22:50
PROVIDERS: ADMIT Internal Medicine; ATTEND Internal Medicine
PROC: 0W9F30Z Drainage of Abdominal Wall with Drainage Device, Percutaneous Approach (ICD-10-PCS; 2017-02-28)
PROC: 0T2BX0Z Change Drainage Device in Bladder, External Approach (ICD-10-PCS; 2017-03-03)
PROC: 0D20XUZ Change Feeding Device in Upper Intestinal Tract, External Approach (ICD-10-PCS; 2017-03-03)
PROC: 5A1935Z Respiratory Ventilation, Less than 24 Consecutive Hours (ICD-10-PCS; principal; 2017-03-09)
PROC: 5A12012 Performance of Cardiac Output, Single, Manual (ICD-10-PCS; 2017-03-09)
PROC: 0BH17EZ Insertion of Endotracheal Airway into Trachea, Via Natural or Artificial Opening (ICD-10-PCS; 2017-03-09)
PROC: 06HM33Z Insertion of Infusion Device into Right Femoral Vein, Percutaneous Approach (ICD-10-PCS; 2017-03-09)
PROC: B54BZZA Ultrasonography of Right Lower Extremity Veins, Guidance (ICD-10-PCS; 2017-03-09)
DX: A41.9 Sepsis, unspecified organism (principal); N17.0 Acute kidney failure with tubular necrosis; J96.91 Respiratory failure, unspecified with hypoxia; J69.0 Pneumonitis due to inhalation of food and vomit; J81.1 Chronic pulmonary edema; I50.33 Acute on chronic diastolic (congestive) heart failure; K65.9 Peritonitis, unspecified; E46 Unspecified protein-calorie malnutrition; N18.6 End stage renal disease; I82.401 Acute embolism and thrombosis of unspecified deep veins of right lower extremity; I13.2 Hypertensive heart and chronic kidney disease with heart failure and with stage 5 chronic kidney disease, or end stage renal disease; K81.0 Acute cholecystitis; K94.23 Gastrostomy malfunction; N39.0 Urinary tract infection, site not specified; L02.211 Cutaneous abscess of abdominal wall; T85.638A Leakage of other specified internal prosthetic devices, implants and grafts, initial encounter; I25.10 Atherosclerotic heart disease of native coronary artery without angina pectoris; L89.90 Pressure ulcer of unspecified site, unspecified stage; I46.9 Cardiac arrest, cause unspecified; R13.10 Dysphagia, unspecified; D64.9 Anemia, unspecified; B37.9 Candidiasis, unspecified; B96.20 Unspecified Escherichia coli [E. coli] as the cause of diseases classified elsewhere; B96.1 Klebsiella pneumoniae [K. pneumoniae] as the cause of diseases classified elsewhere; E83.51 Hypocalcemia; E11.22 Type 2 diabetes mellitus with diabetic chronic kidney disease; E78.5 Hyperlipidemia, unspecified; E11.65 Type 2 diabetes mellitus with hyperglycemia; E11.51 Type 2 diabetes mellitus with diabetic peripheral angiopathy without gangrene; N94.89 Other specified conditions associated with female genital organs and menstrual cycle; M47.896 Other spondylosis, lumbar region; M62.81 Muscle weakness (generalized); M47.894 Other spondylosis, thoracic region; M79.605 Pain in left leg; Y83.3 Surgical operation with formation of external stoma as the cause of abnormal reaction of the patient, or of later complication, without mention of misadventure at the time of the procedure; Y83.8 Other surgical procedures as the cause of abnormal reaction of the patient, or of later complication, without mention of misadventure at the time of the procedure; Z90.81 Acquired absence of spleen; Z99.2 Dependence on renal dialysis; I25.2 Old myocardial infarction; Z87.440 Personal history of urinary (tract) infections; Z95.1 Presence of aortocoronary bypass graft; Z79.4 Long term (current) use of insulin; Z93.1 Gastrostomy status; Z91.018 Allergy to other foods
CPT/HCPCS: 31500; 36600; 71010; 74176; 74230; 75984; 75989; 77012; 80048; 80053; 80202; 81001; 82040; 82728; 82803; 82962; 83540; 83605; 83735; 84100; 84132; 84300; 84478; 84484; 85025; 85610; 85730; 87040; 87045; 87070; 87075; 87081; 87086; 92526; 92610; 92611; 92950; 93005; 93970; 94640; 94664; 96365; 96375; J1940; J2001; C9113; J0171; J0282; J0461; J0610; J1265; J1650; J1815; J2185; J2250; J2270; J2310; J2370; J2405; J2543; J3010; J3370; J3475; J3480; J7030; J7040; J7042; J7050; J7070; P9047; Q4081; Q9967